=== PATIENT | male | born 1940 | race Caucasian/White ===

== ENCOUNTER 2017-03-07 12:08 | Emergency (ER) | payer OTHER ==
[~2017-03-07] VITALS: Ht 175.3 cm; Wt 57.0 kg
[2017-03-07 12:18] VITALS: TEMP 36.6; O2SAT 99
[2017-03-07] MEDS ORDERED: ADVIN25/60 INH (12:23)
[2017-03-07] MEDS ORDERED: VNTHFA/IN INH (12:23)
[2017-03-07] MEDS ORDERED: SODIUM CHLORIDE 0.9% 500ML 500 ML IV STA (12:27)
[2017-03-07] MEDS ORDERED: ALBUT/IPRATROP 3MG/0.5MG NEB 3 ML VIAL INH ONE (12:30)
[2017-03-07 12:34] VITALS: Ht 175.3 cm; Wt 57.0 kg
[2017-03-07 12:52] LABS: BASO % 1.1 %; BASO ABS # 0.07 K/uL (0-0.2); COMPLETE YES; EOS % 11.9 %; HEMATOCRIT 44.8 % (42-52); IG% 0.3 %; LYMPH % 40.1 %; LYMPH ABS # 2.64 K/uL (1.2-3.4); MEAN CELL VOLUME 100.7 fL (80-100); MEAN CORPUSCULAR HEMOGLOBIN 33.7 pg (25-34); MEAN CORPUSCULAR HGB CONC 33.5 g/dl (32-36); MEAN PLATELET VOLUME 9.7 fL (7.4-10.4); MONO % 10.6 %; PLATELET COUNT 159 K/uL (130-400); RED BLOOD COUNT 4.45 M/uL (4.7-6.1); WHITE BLOOD COUNT 6.58 K/uL (4.8-10.8)
[2017-03-07] MEDS ORDERED: MAGNESIUM SULFATE 1GM / D5W 1 GM BAG IV STA (12:57)
--- NOTE | 2017-03-07 12:57 | EMERGENCY ROOM VISIT NOTE ---
History Report prepared by Scribe: Ginny Ramirez Under the Supervision of: Dr. Lzaaro Beth M.D. First contact with patient: 12:27 Chief Complaint: RESPIRATORY PROBLEMS Stated Complaint: BREATHING DIFFICULTY Nursing Triage Summary: Patient arrives via ALS from home with complaints of respiratory difficulty. Patient reports "I have been sick for over a month now, coughing dark greenish stuff up, they started me on some pill that took it away for a little bit but now it's back." When ems arrived patient was SOB, gasping, only could say 1-2 word sentences. Patient has history of COPD. Per ems report, patient was 90 % on room air, they administered 2 duonebs, 1 additional albuteral treatment, and solu-medrol. Patient reports feeling better and easier to breath at this time. History of Present Illness The patient is a 76 year old male who presents to the Emergency Room with complaints of worsening respiratory problems for the past 1 month. He was brought to the ED via ALS. Per EMS, patient's called an ambulance when he started gasping for air this morning. The patient was 90% on room air when they arrived. They administered 2 DuoNeb treatments, 1 Albuterol treatment and Solu- Medrol, which have provided good relief. The patient reports he has been sick with cold symptoms for the past 1 month. He complains of a productive cough with dark green sputum. He followed with his family doctor at [facility] and was started on antibiotics, which provided good relief while he was taking them, but he states his symptoms returned when he finished the antibiotics. He admits to a history of COPD but has not followed with a [employer] in several years. Source of History: patient Onset: 1 month [employer] Position: chest Timing: worsening Modifying Factors (Relieving): other (antibiotics, albuterol, DuoNeb) Associated Symptoms: + cough Review of Systems See HPI for pertinent positives & negatives. A total of 10 systems reviewed and were otherwise negative. Past Medical & Surgical Medical Problems: (1) COPD (chronic obstructive pulmonary disease) Social History Smoking Status: Former Smoker Alcohol Use: occasionally Drug Use: none Marital Status: Housing Status: lives with family Occupation Status: retired Current/Historical Medications Scheduled Fluticasone Prop/Salmeterol (Advair Diskus 250/50 60 Dose), 1 PUFF INH BID Levofloxacin (Levaquin), 500 MG PO DAILY Prednisone (Prednisone Tab), 0 PO DAILY Scheduled PRN Albuterol Hfa (Ventolin Hfa), 2-4 PUFFS INH Q6H PRN for Shortness of Breath Allergies Coded Allergies: No Known Allergies (Unverified , 03/07/17) Physical Exam Vital Signs Date Time Temp Pulse Resp B/P (MAP) Pulse Ox O2 Delivery O2 Flow Rate FiO2 03/07/17 13:57 110 18 159/70 99 Room Air 03/07/17 13:08 100 18 97 Room Air 03/07/17 12:31 98 03/07/17 12:18 36.6 107 17 190/84 99 Room Air 03/07/17 12:18 99 Room Air 03/07/17 12:18 99 Room Air Physical Exam GENERAL: Patient is a cachectic-appearing 76 year old male HEAD: Normocephalic atraumatic EYES: Ocular movements intact pupils equal and react to light OROPHARYNX mucous membranes are moist no exudates present no erythema or edema present NECK: Supple no nuchal rigidity CHEST: Good equal expansion LUNGS: Bilateral wheezes CARDIAC: Normal S1 and S2 ABDOMEN: Soft nontender no guarding BACK: No CVA tenderness EXTREMITIES: No pain upon palpation normal muscle strength in all groups no clubbing cyanosis or edema NEURO: Patient is following commands is answering questions appropriately. Alert and oriented x3 Cranial Nerves 2-12 grossly intact Medical Decision & Procedures ER Provider Diagnostic Interpretation: Radiology results as stated below per my review and radiologist interpretation: CHEST ONE VIEW PORTABLE HISTORY: 76 years-old Male Pt c/o hypoxia acute infarct see with shortness of breath COMPARISON: None available TECHNIQUE: Portable upright AP view of the chest FINDINGS: Cardiac silhouette is within normal limits. There is atherosclerosis of the aorta. Lungs are hyperinflated and hyperlucent with mild biapical pleural-parenchymal scarring. Linear perihilar and midlung opacities suggest atelectasis/scarring. There are patchy alveolar opacities of the left lung base. The bones appear grossly intact IMPRESSION: 1. Patchy subsegmental left basilar opacities suggest atelectasis or pneumonia. 2. Emphysema with mild perihilar and midlung atelectasis/scarring. The above report was generated using voice recognition software. It may contain grammatical, syntax or spelling errors. Electronically signed by: Bry Forrest M.D. 03/07/2017 12:57 PM Laboratory Results 03/07/17 12:15 Red Blood Count 4.45, Mean Corpuscular Volume 100.7, Mean Corpuscular Hemoglobin 33.7, Mean Corpuscular Hemoglobin Concent 33.5, Mean Platelet Volume 9.7, Neutrophils (%) (Auto) 36.0, Lymphocytes (%) (Auto) 40.1, Monocytes (%) ( Auto) 10.6, Eosinophils (%) (Auto) 11.9, Basophils (%) (Auto) 1.1, Neutrophils # (Auto) 2.37, Lymphocytes # (Auto) 2.64, Monocytes # (Auto) 0.70, Eosinophils # (Auto) 0.78, Basophils # (Auto) 0.07 03/07/17 12:15 Test 03/07/17 12:15 03/07/17 12:37 White Blood Count 6.58 K/uL (4.8-10.8) Red Blood Count 4.45 M/uL (4.7-6.1) Hemoglobin 15.0 g/dL (14.0-18.0) Hematocrit 44.8 % (42-52) Mean Corpuscular Volume 100.7 fL (80-100) Mean Corpuscular Hemoglobin 33.7 pg (25-34) Mean Corpuscular Hemoglobin Concent 33.5 g/dl (32-36) Platelet Count 159 K/uL (130-400) Mean Platelet Volume 9.7 fL (7.4-10.4) Neutrophils (%) (Auto) 36.0 % Lymphocytes (%) (Auto) 40.1 % Monocytes (%) (Auto) 10.6 % Eosinophils (%) (Auto) 11.9 % Basophils (%) (Auto) 1.1 % Neutrophils # (Auto) 2.37 K/uL (1.4-6.5) Lymphocytes # (Auto) 2.64 K/uL (1.2-3.4) Monocytes # (Auto) 0.70 K/uL (0.11-0.59) Eosinophils # (Auto) 0.78 K/uL (0-0.5) Basophils # (Auto) 0.07 K/uL (0-0.2) RDW Standard Deviation 47.9 fL (36.4-46.3) RDW Coefficient of Variation 13.0 % (11.5-14.5) Immature Granulocyte % (Auto) 0.3 % Immature Granulocyte # (Auto) 0.02 K/uL (0.00-0.02) Anion Gap 12.0 mmol/L (3-11) Est Creatinine Clear Calc Drug Dose 67.9 ml/min Estimated GFR () 103.6 Estimated GFR (Non- 89.4 BUN/Creatinine Ratio 6.4 (10-20) Calcium Level 8.5 mg/dl (8.5-10.1) Total Bilirubin 0.7 mg/dl (0.2-1) Aspartate Amino Transf (AST/SGOT) 44 U/L (15-37) Alanine Aminotransferase (ALT/SGPT) 30 U/L (12-78) Alkaline Phosphatase 87 U/L (45-117) Total Creatine Kinase 106 U/L (39-308) Creatine Kinase MB 2.1 ng/ml (0.5-3.6) Creatine Kinase MB Ratio 2.0 (0-3.0) Troponin I 0.018 ng/ml (0-0.045) Total Protein 6.7 gm/dl (6.4-8.2) Albumin 3.4 gm/dl (3.4-5.0) Globulin 3.3 gm/dl (2.5-4.0) Albumin/Globulin Ratio 1.0 (0.9-2) Influenza Type A Antigen Neg for Influ A (NEG) Influenza Type B Antigen Neg for Influ B (NEG) Labs reviewed by ED physician. Medications Administered Medications (Trade) Dose Ordered Sig/Rigoberto Route Start Time Stop Time Status Last Admin Dose Admin Sodium Chloride 500 ml @ 999 mls/hr Q31M STAT IV 03/07/17 12:27 03/07/17 12:57 DC 03/07/17 12:41 999 MLS/HR Albuterol/ Ipratropium (Duoneb) 12 ml ONE ONCE INH 03/07/17 12:30 03/07/17 12:31 DC 03/07/17 12:30 12 ML Magnesium Sulfate (Magnesium Sulfate) 1 gm NOW STAT IV 03/07/17 12:57 03/07/17 12:58 DC 03/07/17 13:01 1 GM Levofloxacin (Levaquin Tab) 500 mg DAILY@11 STAT PO 03/07/17 13:18 03/07/17 13:19 DC 03/07/17 13:57 500 MG ECG Indication: SOB/dyspnea Rate (beats per minute): 96 Rhythm: normal sinus Findings: no acute ischemic change, no ectopy ED Course 1249: Past medical records reviewed. The patient was evaluated in room C10. A complete history and physical examination was performed. 1227: NSS 500 ml @ 999 mls/hr IV. 1230: DuoNeb 12 ml INH. 1257: Magnesium Sulfate 1 gm IV. 1318: Levaquin 500 mg PO. 1345: I reevaluated the patient. He is feeling well and resting comfortably. He states he is ready to go home. I discussed his results and discharge instructions and he verbalized complete understanding and agreement. Medical Decision Prior records/ancillary studies reviewed. Triage Nursing notes reviewed. The patient's history was concerning for respiratory difficulties. Differential diagnosis: Etiologies such as infections, reactive airway disease, pneumonia, pneumothorax , COPD, CHF, cardiac ischemia, pulmonary embolism, musculoskeletal, gastrointestinal, as well as others were entertained. This is a 76-year-old male who presents emergency department complaining of difficulty breathing and wheezing. The patient was given a breathing treatments as well as Solu-Medrol on the way in via EMS and upon arrival to the emergency department the patient is already feeling much better. He is not hypoxic. He was given further breathing treatments in the emergency department along with magnesium. The patient has a normal chest x-ray with no evidence of pneumonia. I will start him on Levaquin. I gave the patient the option of being admitted however he would like to go home. I recommended he take his inhalers twice every 6 hours and needs follow-up with his primary care physician. Patient was in agreement with the treatment plan. Medication Reconcilliation Current Medication List: was personally reviewed by me Blood Pressure Screening Patient's blood pressure: Elevated blood pressure Blood pressure disposition: Referred to PCP Impression Primary Impression: COPD (chronic obstructive pulmonary disease) Scribe Attestation The scribe's documentation has been prepared under my direction and personally reviewed by me in its entirety. I confirm that the note above accurately reflects all work, treatment, procedures, and medical decision making performed by me. Departure Information Dispostion Home / Self-Care Prescriptions Levofloxacin (Levaquin) 500 Mg Tab 500 MG PO DAILY for 7 Days, #7 TAB Prov: Lazaro Beth MD 03/07/17 Prednisone (Prednisone Tab) 20 Mg Tab 0 PO DAILY, #7 TAB 2 TABS DAILY FOR 2 DAYS, THEN 1 TAB DAILY FOR 2 DAYS, THEN 1/2 TAB DAILY FOR 2 DAYS. Prov: Lazaro Beth MD 03/07/17 Referrals No Doctor, Assigned (PCP) Patient Instructions COPD - [facility], COPD Inhalers, [facility] Additional Instructions Use inhaler twice every 4 hours Return if symptoms worsen You were found to have an elevated blood pressure today (>120 sytolic or >90 diastolic). Per medicare guidelines, you need to follow up with this blood pressure screening with your Primary Care Physician (PCP). For a new PCP call [phone]. You have been examined and treated today on an emergency basis only. This is not a substitute for, or an effort to provide, complete comprehensive medical care. It is impossible to recognize and treat all injuries or illnesses in a single emergency department visit. It is therefore important that you follow up closely with your PCP. Call as soon as possible for an appointment. Thank you for your time and consideration. I look forward to speaking with you again soon. Please don't hesitate to call us if you have any questions. Problem Qualifiers Primary Impression: COPD (chronic obstructive pulmonary disease) COPD type: COPD with acute exacerbation Qualified Codes: J44.1 - Chronic obstructive pulmonary disease with (acute) exacerbation
[2017-03-07 13:02] LABS: BUN/CREATININE RATIO 6.4 (10-20); CALCIUM 8.5 mg/dl (8.5-10.1); CREATININE 0.77 mg/dl (0.60-1.40); POTASSIUM 3.6 mmol/L (3.5-5.1)
[2017-03-07 13:08] VITALS: PULSE 100; O2SAT 97
[2017-03-07] MEDS ORDERED: LEVOFLOXACIN 500 MG TAB PO STA (13:18)
[2017-03-07] MEDS ORDERED: PRED20TA2 PO (13:47)
[2017-03-07] MEDS ORDERED: LEVO-366 PO (13:47)
[2017-03-07 13:57] VITALS: BP 159/70; PULSE 110; O2SAT 99
[2017-03-07 14:57] LABS: INFLUENZA A PCR Neg for Influ A (NEG); INFLUENZA B PCR Neg for Influ B (NEG)
== END 2017-03-07 14:20 | disposition home or self-care (01) ==
LOC: EDBD 12:08 → C.EDC 12:11
DX: J44.1 Chronic obstructive pulmonary disease with (acute) exacerbation (principal); Z87.891 Personal history of nicotine dependence

== ENCOUNTER 2017-04-23 11:46 | Inpatient (IN) | payer OTHER ==
[~2017-04-23] VITALS: Ht 175.3 cm; Wt 59.5 kg
[~2017-04-23 11:46] MED LIST: ADVIN25/60 INH; PRED20TA2 PO; VNTHFA/IN INH
[2017-04-23] MEDS ORDERED: ALBU18002 PO (12:16)
[2017-04-23] MEDS ORDERED: LEVAQUIN 750MG / 150ML D5W IV STA (12:36)
[2017-04-23] MEDS ORDERED: ALBUT/IPRATROP 3MG/0.5MG NEB 3 ML VIAL INH STA (12:36)
[2017-04-23] MEDS ORDERED: METHYLPREDNISOLONE 125 MG VIAL IV STA (12:36)
--- NOTE | 2017-04-23 12:38 | EMERGENCY ROOM VISIT NOTE ---
History Report prepared by Fab: Zac Salcido Under the Supervision of: Dr. Eileen Hatch D.O. First contact with patient: 12:27 Chief Complaint: SHORTNESS OF BREATH Stated Complaint: SHORTNESS OF BREATH Nursing Triage Summary: Pt arrived via ambulance ALS from home. Pt has a history of COPD and does not use oxygen at home. Pt states that over the last week he has been experincing increased SOB. Pt states that his SOB increases on exacerbation. Pt has a productive cough and reports that he is bring up green sputum. Pt denies any fever. Pt states that he has been feeling more congested than normal. When EMS arrived the pts pulse ox was 80% room air. Pt was placed on 15lpm non rebreather by BLS. When ALS arrived the pt was placed on nasal canula at 2lpm with a pulse ox in the mid 90's. ALS gave the pt 2 duenebs and 2 albuterol treatments. Pt was also given solumedrol. Pt has wheezes and rhonchi in bilateral upper lobes. Pt states that his chest feels tight at his sternum. History of Present Illness The patient is a 76 year old male with a history of COPD who presents to the Emergency Room via ALS with complaints of worsening shortness of breath that started 2 weeks ago. He says that he has had COPD exacerbations in the past. The patient states that over the past few weeks, the shortness of breath has gradually worsened, and his nebulizer and ProAir treatments have not been working. The patient says that any exertion makes him very short of breath, and he gets a bit of chest pain on exertion as well, but the chest pain goes away after resting. He adds that he has gotten a cough with green phlegm. He states he is an ex-smoker, and stopped smoking a year and 2 months ago. He at one point smoked 4 packs per day. The patient says that he does not use oxygen at home. He denies any fevers, leg swelling, bowel movement changes, or urinary symptoms. He also denies any recent sick contacts or long travels. The patient says that he has a history of pneumonia and bronchitis, and this current bout feels a bit like bronchitis. He notes no history of heart problems. Per EMS, patient 80% on room air on their arrival. Patient's saturations improved upon placement of nasal cannula patient was given a DuoNeb en route to the hospital. Source of History: patient Onset: 2 weeks ago Position: other (global - shortness of breath) Quality: other (hx of COPD) Timing: worsening Modifying Factors (Worsening): exertion Modifying Factors (Relieving): rest Associated Symptoms: + cough (with green phlegm), + chest pain, No fevers, No urinary symptoms Note: Associated symptoms: Denies leg swelling, bowel movement changes. Review of Systems See HPI for pertinent positives & negatives. A total of 10 systems reviewed and were otherwise negative. Past Medical & Surgical Medical Problems: (1) COPD (chronic obstructive pulmonary disease) (2) ETOH abuse Family History Family history omitted secondary to patient's advanced age. Social History Smoking Status: Former Smoker Alcohol Use: occasionally Drug Use: none Marital Status: Housing Status: lives with family Occupation Status: retired Current/Historical Medications Scheduled Fluticasone Prop/Salmeterol (Advair Diskus 250/50 60 Dose), 1 PUFF INH BID Scheduled PRN Albuterol Sulfate (Proair Respiclick), 2 PUFF PO Q4H PRN for SOB/Wheezing Allergies Coded Allergies: No Known Allergies (Unverified , 04/23/17) Physical Exam Vital Signs Date Time Temp Pulse Resp B/P (MAP) Pulse Ox O2 Delivery O2 Flow Rate FiO2 04/23/17 14:05 104 20 140/74 96 Nasal Cannula 2.0 04/23/17 12:23 98 Nasal Cannula 2.0 04/23/17 12:22 98 Nasal Cannula 2.0 04/23/17 12:21 98 Nasal Cannula 2.0 04/23/17 12:15 102 04/23/17 12:00 36.6 108 22 172/96 88 Room Air 04/23/17 12:00 88 Room Air Physical Exam GENERAL: alert, well appearing, well nourished, no distress, non-toxic EYE EXAM: normal conjunctiva, PERRL and EOM's grossly intact OROPHARYNX: no exudate, no erythema, lips, buccal mucosa, and tongue normal and mucous membranes are moist NECK: supple, no nuchal rigidity, no adenopathy, non-tender LUNGS: Diminished breath sounds. Faint expiratory wheezing bilaterally. Normal chest wall mechanics HEART: no murmurs, S1 normal and S2 normal ABDOMEN: abdomen soft, non-tender, normo-active bowel sounds, no masses, no rebound or guarding. BACK: Back is symmetrical on inspection and there is no deformity, no midline tenderness, no CVA tenderness. SKIN: no rashes and no bruising UPPER EXTREMITIES: upper extremities are grossly normal. LOWER EXTREMITIES: No pitting edema. NEURO EXAM: Normal sensorium, cranial nerves II-XII grossly intact, normal speech, no gross weakness of arms, no gross weakness of legs. Medical Decision & Procedures ER Provider Diagnostic Interpretation: X-ray results have been interpreted by the radiologist and reviewed by me. CHEST ONE VIEW PORTABLE CLINICAL HISTORY: SOB dyspnea COMPARISON STUDY: 03/07/2017 FINDINGS: Improved left basilar infiltrative process. Stable bilateral baseline emphysematous change. Scattered interstitial fibrotic change considered chronic. No acute infiltrate current time. IMPRESSION: Chronic and emphysematous change. No acute process. The above report was generated using voice recognition software. It may contain grammatical, syntax or spelling errors. Electronically signed by: Joni Bond M.D. 04/23/2017 1:01 PM Dictated Date/Time: 04/23/2017 1:00 PM Laboratory Results Test 04/23/17 12:10 04/23/17 12:47 04/23/17 12:56 Immature Granulocyte % (Auto) 0.1 % White Blood Count 6.76 K/uL (4.8-10.8) Red Blood Count 4.16 M/uL (4.7-6.1) Hemoglobin 14.8 g/dL (14.0-18.0) Hematocrit 41.8 % (42-52) Mean Corpuscular Volume 100.5 fL (80-100) Mean Corpuscular Hemoglobin 35.6 pg (25-34) Mean Corpuscular Hemoglobin Concent 35.4 g/dl (32-36) Platelet Count 191 K/uL (130-400) Mean Platelet Volume 9.3 fL (7.4-10.4) Neutrophils (%) (Auto) 54.4 % Lymphocytes (%) (Auto) 30.5 % Monocytes (%) (Auto) 7.1 % Eosinophils (%) (Auto) 7.0 % Basophils (%) (Auto) 0.9 % Neutrophils # (Auto) 3.68 K/uL (1.4-6.5) Lymphocytes # (Auto) 2.06 K/uL (1.2-3.4) Monocytes # (Auto) 0.48 K/uL (0.11-0.59) Eosinophils # (Auto) 0.47 K/uL (0-0.5) Basophils # (Auto) 0.06 K/uL (0-0.2) Immature Granulocyte # (Auto) 0.01 K/uL (0.00-0.02) Prothrombin Time 10.9 SECONDS (9.0-12.0) Prothromb Time International Ratio 1.0 (0.9-1.1) Activated Partial Thromboplast Time 28.3 SECONDS (21.0-31.0) Partial Thromboplastin Ratio 1.1 Estimated Average Glucose 97 mg/dl Hemoglobin A1c 5.0 % (4.5-5.6) Total Bilirubin 0.8 mg/dl (0.2-1) Aspartate Amino Transf (AST/SGOT) 29 U/L (15-37) Alanine Aminotransferase (ALT/SGPT) 22 U/L (12-78) Alkaline Phosphatase 95 U/L (45-117) Pro-B-Type Natriuretic Peptide 186 pg/ml (0-900) Total Protein 7.5 gm/dl (6.4-8.2) Albumin 3.5 gm/dl (3.4-5.0) Globulin 4.0 gm/dl (2.5-4.0) Albumin/Globulin Ratio 0.9 (0.9-2) Bedside Troponin I 0.040 ng/ml (0-0.045) Bedside Lactic Acid Venous 3.16 mmol/L (0.90-1.70) Laboratory results per my review. Medications Administered Medications (Trade) Dose Ordered Sig/Rigoberto Route Start Time Stop Time Status Last Admin Dose Admin Albuterol/ Ipratropium (Duoneb) 3 ml NOW STAT INH 04/23/17 12:36 04/23/17 12:38 DC 04/23/17 12:36 3 ML Methylprednisolone Sodium Succinate (Solu-Medrol IV) 125 mg NOW STAT IV 04/23/17 12:36 04/23/17 12:38 DC 04/23/17 12:36 125 MG Levofloxacin (Levaquin / D5W) 750 mg NOW STAT IV 04/23/17 12:36 04/23/17 12:38 DC 04/23/17 12:36 750 MG Aspirin (Ecotrin Tab) 325 mg NOW STAT PO 04/23/17 13:30 04/23/17 13:31 DC 04/23/17 14:25 325 MG ECG Indication: SOB/dyspnea Rate (beats per minute): 95 Rhythm: normal sinus Findings: no acute ischemic change, no ectopy, other (normal axis, normal intervals) ED Course 1229: The patient was evaluated in room C6. A complete history and physical exam was performed. 1236: Ordered Levaquin / D5W 750 mg IV, Solu-Medrol IV 125 mg IV, Duoneb 3 ml INH. 1330: Ordered Ecotrin Tab 325 mg PO. 1338: Upon reevaluation, the patient is still finishing his neb treatment. He has no current chest pain. I discussed the findings and the treatment plan with the patient. He expresses agreement and understanding. He will be evaluated for further management. 1426: I reviewed the patient's case with Lotus Abdalla. She will evaluate the patient for further management. Medical Decision Differential diagnoses includes but is not limited to pneumonia, bronchitis, COPD/Asthma exacerbation, pneumothorax, pulmonary embolism, congestive heart failure, acute coronary syndrome Patient initially hypoxic [facility] improved by arrival here and reported feeling better. Patient likely with COPD exacerbation although found to have elevated troponin also. Concern given patient's risk factors for ACS. Patient with no EKG changes or chest pain while at rest. Patient has reported chest pain and shortness of breath with exertion. Possible elevated troponin secondary to hypoxia noted by EMS, however patient needs additional testing and likely cardiology evaluation at some point. Patient stable hemodynamically here and maintained his oxygen levels well on nasal cannula. Given steroids and additional breathing treatments. Doubt PE, dissection, bacteremia/sepsis, additional GI or pathology. Doubt tamponade, no evidence of effusion. Given change in cough, worsening trouble breathing patient covered with antibiotics, no focal infiltrate seen on chest x-ray. Medication Reconcilliation Current Medication List: was personally reviewed by me Blood Pressure Screening Patient's blood pressure: Elevated blood pressure Referred to hospitalist. Consults Time Called: 1420 Consulting Physician: Lotus Abdalla Returned Call: 1426 I reviewed the patient's case with Lotus Abdalla. She will evaluate the patient for further management. Impression Primary Impression: COPD exacerbation Additional Impressions: Hypoxia Elevated troponin Scribe Attestation The scribe's documentation has been prepared under my direction and personally reviewed by me in its entirety. I confirm that the note above accurately reflects all work, treatment, procedures, and medical decision making performed by me. Departure Information Dispostion Being Evaluated By Hospitalist Referrals No Doctor, Assigned (PCP) Patient Instructions My [facility] Problem Qualifiers
[2017-04-23 12:47] LABS: BASO % 0.9 %; BASO ABS # 0.06 K/uL (0-0.2); COMPLETE YES; HEMATOCRIT 41.8 % (42-52); IG% 0.1 %; LYMPH % 30.5 %; LYMPH ABS # 2.06 K/uL (1.2-3.4); MEAN CELL VOLUME 100.5 fL (80-100); MEAN CORPUSCULAR HEMOGLOBIN 35.6 pg (25-34); MEAN CORPUSCULAR HGB CONC 35.4 g/dl (32-36); MEAN PLATELET VOLUME 9.3 fL (7.4-10.4); MONO % 7.1 %; NEUT % 54.4 %; PLATELET COUNT 191 K/uL (130-400); RED BLOOD COUNT 4.16 M/uL (4.7-6.1); WHITE BLOOD COUNT 6.76 K/uL (4.8-10.8)
[2017-04-23 12:54] LABS: BUN/CREATININE RATIO 7.6 (10-20); CALCIUM 9.2 mg/dl (8.5-10.1); CREATININE 0.97 mg/dl (0.60-1.40); POTASSIUM 3.9 mmol/L (3.5-5.1)
[2017-04-23 12:57] LABS: PARTIAL THROMBOPLASTIN RATIO 1.1; PROTHROMBIN TIME (PATIENT) 10.9 SECONDS (9.0-12.0)
[2017-04-23 13:02] LABS: ALB/GLOB RATIO 0.9 (0.9-2)
--- NOTE | 2017-04-23 13:03 | DIAGNOSTIC IMAGING REPORT ---
CHEST ONE VIEW PORTABLE CLINICAL HISTORY: SOB dyspnea COMPARISON STUDY: 03/07/2017 FINDINGS: Improved left basilar infiltrative process. Stable bilateral baseline emphysematous change. Scattered interstitial fibrotic change considered chronic. No acute infiltrate current time. IMPRESSION: Chronic and emphysematous change. No acute process. The above report was generated using voice recognition software. It may contain grammatical, syntax or spelling errors. Electronically signed by: Joni Bond M.D. 04/23/2017 1:01 PM Dictated Date/Time: 04/23/2017 1:00 PM
[2017-04-23] MEDS ORDERED: ASPIRIN 325 MG ECTAB PO STA (13:30)
[2017-04-23] MEDS ORDERED: NITROGLYCERIN 0.4 MG SL PER TAB CHARGE SL PRN (15:15)
[2017-04-23] MEDS ORDERED: ACETAMINOPHEN 325 MG TAB PO PRN (15:15)
[2017-04-23] MEDS ORDERED: ONDANSETRON INJ 2 MG/ML 2 ML VIAL IV PRN (15:15)
[2017-04-23] MEDS ORDERED: OPTIRAY 320 IV PRN (15:30)
[2017-04-23] MEDS ORDERED: LORAZEPAM 2 MG/ML 1 ML VIAL IV PRN (16:00)
[2017-04-23] MEDS ORDERED: GABAPENTIN 600 MG TAB PO SCH (16:00)
[2017-04-23 16:30] VITALS: BP 136/80; PULSE 101; TEMP 36.6; O2SAT 96; Ht 175.3 cm; Wt 59.5 kg
[2017-04-23] MEDS ORDERED: SODIUM CHLORIDE 0.9% 1000ML 1,000 ML IV SCH ×2 (16:30→19:00)
[2017-04-23] MEDS ORDERED: LEVALBUTEROL 1.25MG/3ML NEB INH PRN (16:45)
--- NOTE | 2017-04-23 16:51 | DIAGNOSTIC IMAGING REPORT ---
CHEST CTA for PULMONARY ARTERIES CT DOSE: 234.69 mGy.cm HISTORY: Hypoxia. TECHNIQUE: Multiaxial CT images of the chest were performed following the intravenous administration of contrast to evaluate the pulmonary arteries. Maximal intensity projection images were also obtained. A dose lowering technique was utilized adhering to the principles of ALARA. COMPARISON STUDY: Chest 04/23/2017. FINDINGS: Normal caliber thoracic aorta with no evidence for dissection. The heart is normal in size. No pleural or pericardial effusions. The majority of the bilateral lower lobe, lingular, and right middle lobe pulmonary arteries are nondiagnostic due to the motion artifact. Otherwise, the remaining pulmonary arteries show no filling defects to suggest pulmonary embolus. No mediastinal or hilar lymphadenopathy. The visualized liver and adrenal glands unremarkable. Punctate calcification within the spleen. No pneumothorax. The central airways are patent. Bilateral lower lobe bronchial wall thickening. Focal patchy air consolidation within the base of the left lower lobe. This measures approximately 3.8 cm and has a non masslike appearance. Severe emphysema. Suboptimal evaluation the lungs due to the respiratory motion. The right lung is essentially clear. IMPRESSION: 1. No evidence for pulmonary embolus with limitations as described above. 2. Small focal consolidation within the left lower lobe. This likely represents a pneumonia. Recommend 2-[address] follow-up to ensure resolution. 3. Severe emphysema. Electronically signed by: Madan Henderson M.D. 04/23/2017 4:49 PM Dictated Date/Time: 04/23/2017 4:37 PM
[2017-04-23] MEDS ORDERED: GABAPENTIN 1200MG LOADING DOSE PO ONE (17:00)
[2017-04-23] MEDS: MULTIVITAMIN TAB PO SCH (17:41)
[2017-04-23] MEDS: THIAMINE HCL 100 MG TAB PO SCH (17:41)
[2017-04-23] MEDS: CEFTRIAXONE SOD INJ 1 GM in DEXTROSE 5% ADD-VANTAGE 50ML 50 ML IV SCH (17:42)
[2017-04-23] MEDS ORDERED: PNEUMOCOCCAL POLYSACCHARIDES 25 MCG/0.5 ML VIAL/SYR IM. ONE (18:00)
[2017-04-23] MEDS ORDERED: PNEUMOCOCCAL ADMINISTRATION CHARGE ONE (18:00)
[2017-04-23 18:52] LABS: INFLUENZA A PCR Neg for Influ A (NEG); INFLUENZA B PCR Neg for Influ B (NEG)
[2017-04-23 19:07] VITALS: PULSE 104; O2SAT 96
[2017-04-23] MEDS: IPRATROPIUM BROMIDE NEB SOLN 0.02% 2.5 ML VIAL INH SCH (19:07)
[2017-04-23] MEDS: LEVALBUTEROL 1.25MG/0.5ML NEB INH SCH (19:07)
[2017-04-23 19:38] VITALS: BP 141/85; PULSE 106; TEMP 36.6; O2SAT 95
--- NOTE | 2017-04-23 19:44 | History and Physical ---
History & Physical Date & Time of Service: Apr 23, 2017 ~ 15:00 Chief Complaint: Shortness Of Breath Primary Care Physician: Rm Lundberg History of Present Illness 76 year old male who presents to the ED with shortness of breath. Patient's pulmonary problems date back to this spring. 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 He presented to his PCPs office this spring for complaints of shortness of breath. He underwent PFTs that showed severe COPD. Patient declined pulmonary evaluation. Since then he has been on several courses of antibiotics and steroids for COPD exacerbation and bronchitis. Most recently patient was seen in the ED on 03/07 and was given Levaquin and Prednisone. He completed both courses. He reports he initially felt better but his symptoms returned about one week ago. He reports progressive increasing shortness of breath. He has shortness of breath with minimal exertion. He has a cough productive for green sputum. He denies fever and chills. He reports his chest felt tight and that he couldn't get a deep breath in. He denies chest pressure and palpitations. He reports lightheadedness and dizziness but denies any syncopal events. He reports a good appetite. No abdominal pain, nausea, vomiting, or diarrhea. Denies weight loss. No urinary symptoms. When EMS arrived, patient was saturating in the low 80s. He was placed on NRB mask and given nebs and solumedrol. In the ED, patient was 88% on room air which improved with oxygen 2L via NC. He was given solumedrol, neb, Levaquin, and full dose ASA. Troponin is mildly elevated at 0.068, EKG does not show any acute ST changes. Past Medical/Surgical History Medical Problems: (1) COPD (chronic obstructive pulmonary disease) Status: Chronic (2) ETOH abuse Status: Chronic Family History negative for premature CAD, DM, or CVA Social History Smoking Status: Former Smoker Alcohol Use: 3-4 rum/cokes and 6 pack beer / day Marital Status: Immunizations History of Influenza Vaccine: Yes Influenza Vaccine Date: Mar 12, 2017 Multi-Drug Resistant Organisms History of MDRO: No Allergies Coded Allergies: No Known Allergies (Unverified , 04/23/17) Home Medications Scheduled Fluticasone Prop/Salmeterol (Advair Diskus 250/50 60 Dose), 1 PUFF INH BID Scheduled PRN Albuterol Sulfate (Proair Respiclick), 2 PUFF PO Q4H PRN for SOB/Wheezing Review of Systems ROS per HPI, all other systems reviewed and negative Physical Exam Vital Signs Date Time Temp Pulse Resp B/P (MAP) Pulse Ox O2 Delivery O2 Flow Rate FiO2 04/23/17 15:38 105 20 141/81 97 Nasal Cannula 2.0 04/23/17 14:05 104 20 140/74 96 Nasal Cannula 2.0 04/23/17 12:23 98 Nasal Cannula 2.0 04/23/17 12:22 98 Nasal Cannula 2.0 04/23/17 12:21 98 Nasal Cannula 2.0 04/23/17 12:15 102 04/23/17 12:00 36.6 108 22 172/96 88 Room Air 04/23/17 12:00 88 Room Air General Appearance: WD/WN, no apparent distress, + pertinent finding ( chronically ill appearing) Head: normocephalic, atraumatic Eyes: normal inspection, EOMI, sclerae normal ENT: hearing grossly normal, + pertinent finding (mucous membranes moist) Neck: supple, no JVD, trachea midline Respiratory/Chest: no respiratory distress, + decreased breath sounds, + pertinent finding (saturating well on 2L, short of breath with minimal exertion , able to speak in full sentences) Cardiovascular: regular rate, rhythm, no edema, normal peripheral pulses Abdomen/GI: normal bowel sounds, non tender, soft, no organomegaly Extremities/Musculoskelatal: normal inspection, no calf tenderness, normal capillary refill Neurologic/Psych: no motor/sensory deficits, alert, normal mood/affect, oriented x 3 Skin: normal color, warm/dry Diagnostics Laboratory Results Results Past 24 Hours Test 04/23/17 12:10 04/23/17 12:47 04/23/17 16:00 Range/Units White Blood Count 6.76 4.8-10.8 K/uL Red Blood Count 4.16 4.7-6.1 M/uL Hemoglobin 14.8 14.0-18.0 g/dL Hematocrit 41.8 42-52 % Mean Corpuscular Volume 100.5 80-100 fL Mean Corpuscular Hemoglobin 35.6 25-34 pg Mean Corpuscular Hemoglobin Concent 35.4 32-36 g/dl Platelet Count 191 130-400 K/uL Mean Platelet Volume 9.3 7.4-10.4 fL Neutrophils (%) (Auto) 54.4 % Lymphocytes (%) (Auto) 30.5 % Monocytes (%) (Auto) 7.1 % Eosinophils (%) (Auto) 7.0 % Basophils (%) (Auto) 0.9 % Neutrophils # (Auto) 3.68 1.4-6.5 K/uL Lymphocytes # (Auto) 2.06 1.2-3.4 K/uL Monocytes # (Auto) 0.48 0.11-0.59 K/uL Eosinophils # (Auto) 0.47 0-0.5 K/uL Basophils # (Auto) 0.06 0-0.2 K/uL RDW Standard Deviation 50.0 36.4-46.3 fL RDW Coefficient of Variation 13.6 11.5-14.5 % Immature Granulocyte % (Auto) 0.1 % Immature Granulocyte # (Auto) 0.01 0.00-0.02 K/uL Prothrombin Time 10.9 9.0-12.0 SECONDS Prothromb Time International Ratio 1.0 0.9-1.1 Activated Partial Thromboplast Time 28.3 21.0-31.0 SECONDS Partial Thromboplastin Ratio 1.1 Sodium Level 134 136-145 mmol/L Potassium Level 3.9 3.5-5.1 mmol/L Chloride Level 98 98-107 mmol/L Carbon Dioxide Level 26 21-32 mmol/L Anion Gap 10.0 3-11 mmol/L Blood Urea Nitrogen 7 7-18 mg/dl Creatinine 0.97 0.60-1.40 mg/dl Est Creatinine Clear Calc Drug Dose 47.5 ml/min Estimated GFR () 88.8 Estimated GFR (Non- 76.6 BUN/Creatinine Ratio 7.6 10-20 Random Glucose 122 70-99 mg/dl Calcium Level 9.2 8.5-10.1 mg/dl Total Bilirubin 0.8 0.2-1 mg/dl Aspartate Amino Transf (AST/SGOT) 29 15-37 U/L Alanine Aminotransferase (ALT/SGPT) 22 12-78 U/L Alkaline Phosphatase 95 45-117 U/L Troponin I 0.068 0-0.045 ng/ml Pro-B-Type Natriuretic Peptide 186 0-900 pg/ml Total Protein 7.5 6.4-8.2 gm/dl Albumin 3.5 3.4-5.0 gm/dl Globulin 4.0 2.5-4.0 gm/dl Albumin/Globulin Ratio 0.9 0.9-2 Bedside Troponin I 0.040 0-0.045 ng/ml Diagnostic Radiology CXR IMPRESSION: Chronic and emphysematous change. No acute process. Impression Assessment and Plan ACUTE HYPOXIC RESPIRATORY FAILURE COPD EXACERBATION - admit to tele - patient presenting with increasing shortness of breath and productive cough; for EMS, patient was saturating in the low 80s which improved with neb, steroids , and oxygen via NRB. In the ED, patient was 88% on room air and is currently requiring 2L oxygen via NC. - has been having shortness of breath / COPD exacerbations for the past several months; has been on several course of antibiotics and steroids; had outpatient PFTs that showed severe COPD, patient declined pulmonary evaluation - former smoker quitting 1 year ago; was smoking up to 4 PPD - CXR without infiltrate - will check CT chest - s/p solumedrol 125mg IV in the ED; will continue with Prednisone 40mg PO x 5 days - s/p Levaquin in the ED; since patient was recently on Levaquin, will start Rocephin and Zithromax tomorrow - around the clock nebs - continue inhaled corticosteroid - consult pulmonary, input appreciated ELEVATED TROPONIN - likely demand ischemia from hypoxia, no reports of chest pain - continue to cycle cardiac enzymes - check resting echo LACTIC ACIDEMIA - no signs of sepsis - possibly due to hypoxia and/or ETOH abuse - IVF, follow up lactic acid ETOH ABUSE - patient drinks 2-3 mixed drinks and 6 beers / day - will start ETOH withdrawal protocol with gabapentin, PRN Ativan - start multivitamin, folic acid, and thiamine DVT PROPHYLAXIS - SQ Lovenox CODE STATUS - Patient is a full code as per my discussion with him. DISPO - In my clinical judgment this beneficiary meets acute admission criteria, established by [facility], that includes being hospitalized through two midnights. - PT, OT - expect d/c home once medically stable I have seen and examined with patient with SCIENTIST ENGINEER Lotus Chapman and agree with the assessment and plan as above. This is 76 year old M with COPD exacerbation and hypoxia. Patient on nebulizer treatments and steroids and antibiotics. Antibiotics may be de-escalated if no further signs of pneumonia. Patient has elevated troponin 0.078 and lactic acid which may be from increased work of breathing. Continue to trend these labs. Patient's lactic acid levels coming down from 6.4 to 4.2 after IV fluids. Patient also on alcohol withdrawal protocol due to alcohol history. VTE Prophylaxis VTE Risk Assessment Done? Y/N: Yes Risk Level: Moderate
[2017-04-23] MEDS ORDERED: LEVALBUTEROL 1.25MG/3ML NEB INH SCH (21:00)
[2017-04-23] MEDS ORDERED: ENOXAPARIN 40 MG/0.4 ML SYR SC SCH (21:00)
[2017-04-23] MEDS: FLUTICASONE/SALMETEROL 250/50 (ADVAIR) 14 PUFF/1 INHALER INH SCH (21:45)
[2017-04-23] MEDS ORDERED: SODIUM CHLORIDE 0.9% 500ML 500 ML IV STA (23:05)
[2017-04-23] MEDS: GABAPENTIN 600MG Q6H DOSE PO SCH (23:27)
[2017-04-23 23:48] VITALS: BP 137/73; PULSE 86; TEMP 36.6; O2SAT 96
[2017-04-24] VITALS (10 sets, daily range): BP systolic 122–141; BP diastolic 64–80; PULSE 77–115; TEMP 36.4–36.8; O2SAT 82–97
[2017-04-24] MEDS: IPRATROPIUM BROMIDE NEB SOLN 0.02% 2.5 ML VIAL INH SCH ×4 (02:01→19:35)
[2017-04-24] MEDS: LEVALBUTEROL 1.25MG/0.5ML NEB INH SCH ×4 (02:01→19:35)
[2017-04-24] MEDS: GABAPENTIN 600MG Q6H DOSE PO SCH (05:51)
[2017-04-24 06:07] LABS: HEMATOCRIT 34.9 % (42-52); MEAN CELL VOLUME 100.3 fL (80-100); MEAN CORPUSCULAR HEMOGLOBIN 34.8 pg (25-34); MEAN CORPUSCULAR HGB CONC 34.7 g/dl (32-36); MEAN PLATELET VOLUME 9.3 fL (7.4-10.4); PLATELET COUNT 163 K/uL (130-400); RED BLOOD COUNT 3.48 M/uL (4.7-6.1); WHITE BLOOD COUNT 7.13 K/uL (4.8-10.8)
[2017-04-24 06:42] LABS: BUN/CREATININE RATIO 9.9 (10-20); CALCIUM 8.4 mg/dl (8.5-10.1); CREATININE 0.84 mg/dl (0.60-1.40); POTASSIUM 3.7 mmol/L (3.5-5.1)
[2017-04-24 06:55] LABS: ESTIMATED AVERAGE GLUCOSE 97 mg/dl; HA1C FLAG Normal (Normal)
[2017-04-24] MEDS ORDERED: AZITHROMYCIN 250 MG TAB PO SCH (09:00)
[2017-04-24] MEDS: FLUTICASONE/SALMETEROL 250/50 (ADVAIR) 14 PUFF/1 INHALER INH SCH ×2 (09:56→21:07)
[2017-04-24] MEDS: THIAMINE HCL 100 MG TAB PO SCH (09:57)
[2017-04-24] MEDS: MULTIVITAMIN TAB PO SCH (09:57)
[2017-04-24] MEDS: ASPIRIN 81 MG ECTAB PO SCH (10:12)
--- NOTE | 2017-04-24 10:55 | Pulmonary Consultation ---
History General Date of Service: Apr 24, 2017. Stated Complaint: Copd Exacerbation/bronchitis exacerbation HPI The patient is a 76 year old male who presents to [facility] with complaints of Copd Exacerbation. The patient's primary care provider is No Doctor, Assigned. Pleasant 76-year-old gentleman with a past medical history significant for severe COPD (per the records), alcoholism and recurrent pneumonias over the last 3-6 months. The patient has had multiple rounds of steroids and antibiotics over the last 3-6 months after being diagnosed last spring with severe COPD. He does note he has had progressive dyspnea on exertion over the last 7-10 years but was not formally diagnosed until last spring when he visited his primary care physician and pulmonary function tests were obtained. The patient was initiated on inhaler therapy at that time and was stable until recently when he has had recurrent bouts of shortness of breath and associated productive sputum. He was last seen in the [facility] ED on 03/07/2017 and that time was diagnosed with COPD flare was treated with duo nebs, magnesium, levofloxacin 500 mg, Solu-Medrol and discharged on levofloxacin and prednisone taper. He did well for the following 10-14 days but once again over the last 7- 10 days has experienced increasing productive sputum as well as dyspnea. He was initially brought to the [facility] ED by EMS noted his SCO twos to be in the low 80s. At that time EMS initiate the patient on the nonrebreather mask, nebulizers, Solu-Medrol Levaquin and aspirin. He responded well by the time he arrived in the emergency room department was notably more relieved and his saturations were up to 98% on 2 L respiratory rate sitting at 20-22. In the emergency room the patient received Solu-Medrol 125 mg, Levaquin mg 750 as well as blood workup, chest x-ray and CT angiogram. Please review those results below. WBC: 7K (Eos #: 0.48=) PLT: 163K Lactic Acid: 6.4--4.71.3 Troponin I: 0.0540.0780.68--0.018 Influ A & B: negative Chest x-ray: Compared to 03/07/2017: Improvement in left lower lobe infiltrate CT angiogram: No pulmonary embolism, cross-section 3.8 cm infiltrative process left lower lobe lateral subsegment, panlobular emphysema Treatment Azithromycin 250mg PO Prednisone 40mg QD Atrovent/Xopenex nebs Q6 Ceftriaxone 1gm QD Xopnenex Q2 prn PmHx: 1. COPD 2. 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 Review of Systems Constitutional: reports: weakness Eyes: reports: no symptoms ENT: reports: nasal congestion, rhinorrhea Cardiovascular: reports: no symptoms Respiratory: reports: as stated in HPI Gastrointestinal: reports: no symptoms Genitourinary - Male: reports: no symptoms Musculoskeletal: reports: other (mild right anterior thoracic discomfort along the anterior axillary line only noted during movement or palpation) Integumentary: reports: no symptoms Neurologic: reports: no symptoms Endocrine: no symptoms Hematologic / Lymphatic: no symptoms Allergic / Immunologic: no symptoms Past Medical History Past Medical History: Please refer to history of present illness Past Surgical History: Please refer to history of present illness Family History Please refer to history of present illness Social History Please refer to history of present illness Hx Tobacco Use In Past Year?: No Smoking Status: Former Smoker Marital status: Immunizations History of Influenza Vaccine: Yes Influenza Vaccine Date: Mar 12, 2017 History of MDRO History of MDRO: No Allergies Coded Allergies: No Known Allergies (Unverified , 04/23/17) Current Medications Reported Home Medications Medications Dose Route/Sig Max Daily Dose Days Date Category Proair Respiclick (Albuterol Sulfate) 108 Mcg/Act Aer 2 Puff PO Q4H PRN 04/23/17 Reported Advair Diskus 250/50 60 Dose (Fluticasone Prop/Salmeterol) 1 Ea Aerp 1 Puff INH BID 03/07/17 Reported Physical Physical Exam Vital Signs: Date Time Temp Pulse Resp B/P (MAP) Pulse Ox O2 Delivery O2 Flow Rate FiO2 04/24/17 08:11 36.7 115 20 122/64 (83) 94 Nasal Cannula 2.0 04/24/17 07:36 77 16 96 Nasal Cannula 2.0 04/24/17 04:00 Nasal Cannula 2.0 04/24/17 03:30 36.7 84 18 124/76 (92) 97 Nasal Cannula 2.0 04/24/17 02:03 90 16 95 Nasal Cannula 2.0 04/24/17 00:00 Nasal Cannula 2.0 04/23/17 23:48 36.6 86 20 137/73 (94) 96 Room Air 04/23/17 20:00 Nasal Cannula 2.0 04/23/17 19:38 36.6 106 20 141/85 (103) 95 Nasal Cannula 2.0 04/23/17 19:07 104 16 96 Nasal Cannula 2.0 04/23/17 16:30 36.6 101 20 136/80 96 Nasal Cannula 2.0 04/23/17 15:38 105 20 141/81 97 Nasal Cannula 2.0 04/23/17 14:05 104 20 140/74 96 Nasal Cannula 2.0 04/23/17 12:23 98 Nasal Cannula 2.0 04/23/17 12:22 98 Nasal Cannula 2.0 04/23/17 12:21 98 Nasal Cannula 2.0 04/23/17 12:15 102 04/23/17 12:00 36.6 108 22 172/96 88 Room Air 04/23/17 12:00 88 Room Air General Appearance: NO APPARENT DISTRESS, thin Head: NORMOCEPHALIC, ATRAUMATIC Eyes: PERRLA, NO DISCHARGE, EOMI, SCLERAE NORMAL, CONJUNCTIVAE NORMAL ENT: other (posterior oropharyngeal cobblestoning with notable mucous plugs draining from the nasopharynx) Neck: NORMAL RANGE OF MOTION, NO TENDERNESS, TRACHEA MIDLINE, NO STRIDOR Respiratory: other (decreased breath sounds bilaterally with mild expiratory wheezing) Cardiovasular: REGULAR RATE/RHYTHM, NORMAL S1S2, NO M/G/R, NO MURMUR, NO GALLOP , NO RUB, NO JVD Abdomen: NON TENDER, NORMAL BOWEL SOUNDS, NO REBOUND, NO MASSES, NO GUARDING, NO ORGANOMEGALY, NORMAL RECTAL EXAM, NO HEMORRHOIDS Genitourinary - Male: EXTERNAL GENITALIA NORMAL Back: NORMAL INSPECTION, NO MIDLINE TENDERNESS, NO CVA TENDERNESS, NO PARAVERTEBRAL TTP Upper Extremities: NO EDEMA, NO DEFORMITY, NORMAL ROM Lower Extremities: NO EDEMA, NO DEFORMITY, NORMAL ROM Pulses: carotid (R) (2+), carotid (L) (2+), posterior tibial (R) (2+), posterior tibial (L) (2+) Neuro: ALERT, ORIENTED x 3, NORMAL MOTOR EXAM, NORMAL SENSATION, NORMAL CEREBELLAR EXAM, NORMAL SPEECH Reflexes: biceps (R) (2+), bicpes (L) (2+), achilles (R) (2+), achilles (L) (2+ ) Babinski Testing: right (downgoing), left (downgoing) Psychiatric: NORMAL AFFECT, NO SUICIDAL IDEATION, CONTRACTS FOR SAFETY Diagnostics Labs Results Past 24 Hours Test 04/23/17 12:10 04/23/17 12:47 04/23/17 12:56 04/23/17 17:37 Range/Units White Blood Count 6.76 4.8-10.8 K/uL Red Blood Count 4.16 4.7-6.1 M/uL Hemoglobin 14.8 14.0-18.0 g/dL Hematocrit 41.8 42-52 % Mean Corpuscular Volume 100.5 80-100 fL Mean Corpuscular Hemoglobin 35.6 25-34 pg Mean Corpuscular Hemoglobin Concent 35.4 32-36 g/dl Platelet Count 191 130-400 K/uL Mean Platelet Volume 9.3 7.4-10.4 fL Neutrophils (%) (Auto) 54.4 % Lymphocytes (%) (Auto) 30.5 % Monocytes (%) (Auto) 7.1 % Eosinophils (%) (Auto) 7.0 % Basophils (%) (Auto) 0.9 % Neutrophils # (Auto) 3.68 1.4-6.5 K/uL Lymphocytes # (Auto) 2.06 1.2-3.4 K/uL Monocytes # (Auto) 0.48 0.11-0.59 K/uL Eosinophils # (Auto) 0.47 0-0.5 K/uL Basophils # (Auto) 0.06 0-0.2 K/uL RDW Standard Deviation 50.0 36.4-46.3 fL RDW Coefficient of Variation 13.6 11.5-14.5 % Immature Granulocyte % (Auto) 0.1 % Immature Granulocyte # (Auto) 0.01 0.00-0.02 K/uL Prothrombin Time 10.9 9.0-12.0 SECONDS Prothromb Time International Ratio 1.0 0.9-1.1 Activated Partial Thromboplast Time 28.3 21.0-31.0 SECONDS Partial Thromboplastin Ratio 1.1 Sodium Level 134 136-145 mmol/L Potassium Level 3.9 3.5-5.1 mmol/L Chloride Level 98 98-107 mmol/L Carbon Dioxide Level 26 21-32 mmol/L Anion Gap 10.0 3-11 mmol/L Blood Urea Nitrogen 7 7-18 mg/dl Creatinine 0.97 0.60-1.40 mg/dl Est Creatinine Clear Calc Drug Dose 47.5 ml/min Estimated GFR () 88.8 Estimated GFR (Non- 76.6 BUN/Creatinine Ratio 7.6 10-20 Random Glucose 122 70-99 mg/dl Estimated Average Glucose 97 mg/dl Hemoglobin A1c 5.0 4.5-5.6 % Calcium Level 9.2 8.5-10.1 mg/dl Total Bilirubin 0.8 0.2-1 mg/dl Aspartate Amino Transf (AST/SGOT) 29 15-37 U/L Alanine Aminotransferase (ALT/SGPT) 22 12-78 U/L Alkaline Phosphatase 95 45-117 U/L Troponin I 0.068 0-0.045 ng/ml Pro-B-Type Natriuretic Peptide 186 0-900 pg/ml Total Protein 7.5 6.4-8.2 gm/dl Albumin 3.5 3.4-5.0 gm/dl Globulin 4.0 2.5-4.0 gm/dl Albumin/Globulin Ratio 0.9 0.9-2 Bedside Troponin I 0.040 0-0.045 ng/ml Bedside Lactic Acid Venous 3.16 0.90-1.70 mmol/L Influenza Type A (RT-PCR) Neg for Influ A NEG Influenza Type B (RT-PCR) Neg for Influ B NEG Test 04/23/17 17:58 04/23/17 18:03 04/23/17 22:21 04/24/17 00:00 Range/Units Creatine Kinase MB 2.2 0.5-3.6 ng/ml Creatine Kinase MB Ratio 0-3.0 Troponin I 0.078 0-0.045 ng/ml Vitamin B12 Level 414 211-911 pg/mL Folate 10.62 >5.38 ng/mL Lactic Acid Level 6.4 4.7 0.4-2.0 mmol/L Test 04/24/17 00:22 04/24/17 05:58 Range/Units Creatine Kinase MB 2.5 0.5-3.6 ng/ml Troponin I 0.054 0-0.045 ng/ml White Blood Count 7.13 4.8-10.8 K/uL Red Blood Count 3.48 4.7-6.1 M/uL Hemoglobin 12.1 14.0-18.0 g/dL Hematocrit 34.9 42-52 % Mean Corpuscular Volume 100.3 80-100 fL Mean Corpuscular Hemoglobin 34.8 25-34 pg Mean Corpuscular Hemoglobin Concent 34.7 32-36 g/dl RDW Standard Deviation 50.4 36.4-46.3 fL RDW Coefficient of Variation 13.8 11.5-14.5 % Platelet Count 163 130-400 K/uL Mean Platelet Volume 9.3 7.4-10.4 fL Sodium Level 138 136-145 mmol/L Potassium Level 3.7 3.5-5.1 mmol/L Chloride Level 106 98-107 mmol/L Carbon Dioxide Level 25 21-32 mmol/L Anion Gap 8.0 3-11 mmol/L Blood Urea Nitrogen 8 7-18 mg/dl Creatinine 0.84 0.60-1.40 mg/dl Est Creatinine Clear Calc Drug Dose 52.6 ml/min Estimated GFR () 100.0 Estimated GFR (Non- 86.3 BUN/Creatinine Ratio 9.9 10-20 Random Glucose 169 70-99 mg/dl Lactic Acid Level 1.3 0.4-2.0 mmol/L Calcium Level 8.4 8.5-10.1 mg/dl Triglycerides Level 50 0-150 mg/dl Cholesterol Level 102 0-200 mg/dl HDL Cholesterol 52 mg/dl LDL Cholesterol, Calculated 40 mg/dl VLDL Cholesterol, Calculated 10 mg/dl Cholesterol/HDL Ratio 2.0 Diagnostic Radiology Please refer to history of present illness EKG Nonspecific ST changes but no changes compared to previous EKG Impression Assessment and Plan 76-year-old gentleman admitted for acute on chronic bronchiectasis and COPD flare: #1 COPD: Patient is currently treated with Advair 250/50 but isn't properly using it only one puff daily. As patient is not properly using his Advair I reinforced using the medication to prosper day and we have spoken about the use of rescue medications such as Proventil as well as his nebulizers. As the patient has not had proper inhaler technique suggest we hold off on initiating Daliresp at this time. If our patient continues to have productive sputum with recurrent exacerbations Daliresp would be warranted but he is notably thin and Daliresp can cause weight loss as well as other GI issues. #2 Pulmonary Infiltrate: Patient has had some mild resolution of his left lower lobe infiltrate noted on previous chest x-ray 03/07/2017 continues at this time. I agree with the radiologist as this will have to be followed up by suggest sometime in the next 6 weeks. The patient should've had almost complete resolution within the six-week window between his most recent chest x-rays. This will have to be monitored closely at this time. #3 ID: Patient does have signs and symptoms consistent with acute on chronic bronchiectasis. This possible we are under treating atypical infections as he only received Levaquin 500 mg in the past as well as currently on azithromycin 250. The cover more atypical organisms I will move him up to 500 mg daily of azithromycin for 5 day window. It is reasonable continue ceftriaxone at this time. We'll send off serum studies for Mycoplasma, Legionella as well as pertussis at this time. Sendoff first sputum sample/analysis. #4 Bronchiectasis: Patient does have difficulty clearing secretions at this time I will initiate him on dornase for the next 48 hours. #5 lactic acidosis: The patient has a long history of smoking as well as mild malnutrition and possibly even thiamine deficiency which are noted to increase lactic acid. #6 Discharge: The patient is stable currently doing well on prednisone 40 mg. Would monitor for 24 hour window and I believe he can most likely be discharged on prednisone taper. I do believe this patient needs to follow up with myself in the pulmonary clinic for education on his COPD as well as continued monitoring of that left lower lobe infiltrate. At this time will sign off please call if necessary.
--- NOTE | 2017-04-24 11:20 | ECHOCARDIOGRAM REPORT ---
*NOTICE TO RECEIVING LIBERTARIAN AGENCY This information is strictly Confidential and protected under [place] law. [place] law prohibits you from making any further disclosure of this information unless further disclosure is expressly permitted by the written consent of the person to whom it pertains or is authorized by law. A general authorization for the release of medical or other information is not sufficient for this purpose. Hospital accepts no responsibility if the information is made available to any other person, INCLUDING THE PATIENT. Interpretation Summary * Name: JORDAN BRADFORD JR Study Date: 04/24/2017 07:51 AM BP: 124/76 mmHg * Patient Location: C.2E\S\E204\S\1 HR: 84 * : 1940 (M/d/yyyy) Gender: Male Height: 69 in * Age: 76 yrs Ethnicity: CA Weight: 110 lb * Ordering Physician: Lotus Chapman * Referring Physician: Self, Referred * Performed By: Sophia Agustin RDCS * * Reason For Study: Elevated Troponin * BSA: 1.6 m2 * -- Conclusions -- * The left ventricle is normal in size. * The left ventricular wall motion is normal. * Ejection Fraction = 55-60%. * The right ventricular systolic function is normal. * No significant valvular pathology Procedure Details * A complete two-dimensional transthoracic echocardiogram was performed (2D, M-mode, Doppler and color flow Doppler). Left Ventricle * The left ventricle is normal in size. * There is normal left ventricular wall thickness. * Ejection Fraction = 55-60%. * The left ventricular wall motion is normal. Right Ventricle * The right ventricle is normal size. * The right ventricular systolic function is normal. Atria * The left atrial size is normal. * Right atrial size is normal. * There is no evidence of atrial septal defect, but resolution does not allow assessment for a patent foramen ovale. Mitral Valve * The mitral valve is normal in structure and function. Tricuspid Valve * The tricuspid valve is normal in structure and function. Aortic Valve * The aortic valve is normal in structure and function. Pulmonic Valve * The pulmonic valve is not well visualized. * There is no significant pulmonary regurgitation. Great Vessels * The aortic root and proximal ascending aorta are normal sized. Pericardium/Pleural * There is no pericardial effusion. MMode 2D Measurements and Calculations IVSd 0.87 cm IVSs 1.1 cm LVIDd 4.0 cm LVIDs 2.9 cm LVPWd 0.92 cm LVPWs 1.4 cm IVS/LVPW 0.95 FS 29.1 % EDV(Teich) 70.8 ml ESV(Teich) 30.9 ml EF(Teich) 56.4 % EDV(cubed) 64.9 ml ESV(cubed) 23.2 ml EF(cubed) 64.3 % % IVS thick 26.1 % % LVPW thick 51.5 % LV mass(C)d 109.5 grams LV mass(C)dI 68.3 grams/m\S\2 LV mass(C)s 107.8 grams LV mass(C)sI 67.3 grams/m\S\2 SV(Teich) 39.9 ml SI(Teich) 24.9 ml/m\S\2 SV(cubed) 41.8 ml SI(cubed) 26.1 ml/m\S\2 Ao root diam 2.8 cm Ao root area 6.1 cm\S\2 ACS 1.5 cm LA dimension 3.2 cm LA/Ao 1.2 LVAd ap4 20.7 cm\S\2 LVLd ap4 7.0 cm EDV(MOD-sp4) 51.8 ml EDV(sp4-el) 52.1 ml LVAs ap4 9.7 cm\S\2 LVLs ap4 4.9 cm ESV(MOD-sp4) 18.1 ml ESV(sp4-el) 16.3 ml EF(MOD-sp4) 65.1 % EF(sp4-el) 68.7 % LVAd ap2 21.6 cm\S\2 LVLd ap2 7.5 cm EDV(MOD-sp2) 56.5 ml EDV(sp2-el) 53.1 ml LVAs ap2 11.7 cm\S\2 LVLs ap2 6.0 cm ESV(MOD-sp2) 21.8 ml ESV(sp2-el) 19.4 ml EF(MOD-sp2) 61.5 % EF(sp2-el) 63.4 % LVLd %diff 6.2 % EDV(MOD-bp) 54.9 ml LVLs %diff 17.8 % ESV(MOD-bp) 22.0 ml EF(MOD-bp) 60.0 % SV(MOD-sp4) 33.7 ml SI(MOD-sp4) 21.1 ml/m\S\2 SV(MOD-sp2) 34.8 ml SI(MOD-sp2) 21.7 ml/m\S\2 SV(MOD-bp) 32.9 ml SI(MOD-bp) 20.6 ml/m\S\2 SV(sp4-el) 35.8 ml SI(sp4-el) 22.3 ml/m\S\2 SV(sp2-el) 33.6 ml SI(sp2-el) 21.0 ml/m\S\2 Doppler Measurements and Calculations MV E max ana m 80.3 cm/sec MV A max ana m 90.6 cm/sec MV E/A 0.89 MV dec time 0.20 sec Ao V2 max 141.1 cm/sec Ao max PG 8.0 mmHg Ao max PG (full) 2.8 mmHg LV V1 max PG 5.1 mmHg LV V1 max 113.3 cm/sec PA V2 max 113.0 cm/sec PA max PG 5.1 mmHg PI max ana m 111.3 cm/sec PI max PG 5.0 mmHg PI dec slope 207.1 cm/sec\S\2 PI P1/2t 157.4 msec TR max ana m 279.1 cm/sec
--- NOTE | 2017-04-24 16:32 | Progress Note ---
Internal Med Progress Note Date of Service: Apr 24, 2017. Provider Documentation: SUBJECTIVE: mentions that breathing is much better no audible wheeze or respiratory distress on 2 L 02 via nasal canula no fever or chills no tremor or sign of alcohol withdrawl OBJECTIVE: Vital Signs-as noted below Exam: General-chronically ill appearing , no apparent distress, conversing Eyes-sclera non icteric ENT-poor dentition , hearing grossly normal , normal oropharynx Neck-trachea midline , no thyromegaly Lungs-diminished , with scatted wheeze Heart-regular S1/S2 , no JVD , no lower ext edema Abdomen-soft, non tender Extremities- no cyanosis , no rash or deformity Neuro-AAO x3, no focal neurological deficit Lab data as noted below. ASSESSMENT & PLAN: ACUTE HYPOXIC RESPIRATORY FAILURE COPD EXACERBATION respiratory status improved ; on 2 L supplemental 02 ( was not on home 02 ) - presented with increasing shortness of breath and productive cough. - has been having shortness of breath / COPD exacerbations for the past several months; has been on several course of antibiotics and steroids; had outpatient PFTs that showed severe COPD, patient declined pulmonary evaluation - former heavy smoker quit 1 year ago; was smoking up to 4 PPD a day - CT chest with contrast : IMPRESSION: 1. No evidence for pulmonary embolus with limitations as described above. 2. Small focal consolidation within the left lower lobe. This likely represents a pneumonia. Recommend 2-[address] follow-up to ensure resolution. 3. Severe emphysema. - s/p solumedrol 125mg IV in the ED; continue with Prednisone 40mg PO x 5 days empiric Abx with Rocephin and Zithromax - consulted pulmonary, input appreciated pt will need out pt follow up with Pulmonology for severe COPD repeat Chest xray in 6 weeks to asses for complete resolution of left lower lobe infiltrate ELEVATED TROPONIN no evidence of ACS - likely demand ischemia from hypoxia, no reports of chest pain - ECHO : The left ventricle is normal in size. * The left ventricular wall motion is normal. * Ejection Fraction = 55-60%. * The right ventricular systolic function is normal. * No significant valvular pathology; no wall motion abnormality LACTIC ACIDEMIA normal level after Iv hydration - no signs of sepsis - possibly due to hypoxia and/or ETOH abuse - ETOH ABUSE - patient drinks 2-3 mixed drinks and 6 beers / day - started ETOH withdrawal protocol with gabapentin, PRN Ativan - cont multivitamin, folic acid, and thiamine DVT PROPHYLAXIS - SQ Lovenox CODE STATUS - FULL CODE DISPOSITION pt mentions of feeling weak and off balance while ambulating PT/OT eval prior to discharge social service consulted for discharge planning Vital Signs: Date Time Temp Pulse Resp B/P (MAP) Pulse Ox O2 Delivery O2 Flow Rate FiO2 04/24/17 16:00 Nasal Cannula 2.0 04/24/17 15:51 36.8 96 22 128/80 (96) 97 Nasal Cannula 2.0 04/24/17 14:16 88 18 82 Room Air 04/24/17 12:00 Nasal Cannula 2.0 04/24/17 11:27 36.5 87 18 141/73 (95) 95 Nasal Cannula 2.0 04/24/17 08:11 36.7 115 20 122/64 (83) 94 Nasal Cannula 2.0 04/24/17 08:00 Nasal Cannula 2.0 04/24/17 07:36 77 16 96 Nasal Cannula 2.0 04/24/17 04:00 Nasal Cannula 2.0 04/24/17 03:30 36.7 84 18 124/76 (92) 97 Nasal Cannula 2.0 04/24/17 02:03 90 16 95 Nasal Cannula 2.0 04/24/17 00:00 Nasal Cannula 2.0 04/23/17 23:48 36.6 86 20 137/73 (94) 96 Room Air 04/23/17 20:00 Nasal Cannula 2.0 04/23/17 19:38 36.6 106 20 141/85 (103) 95 Nasal Cannula 2.0 04/23/17 19:07 104 16 96 Nasal Cannula 2.0 Lab Results: Results Past 24 Hours Test 04/23/17 22:21 04/24/17 00:00 04/24/17 00:22 04/24/17 05:58 Range/Units Lactic Acid Level 4.7 1.3 0.4-2.0 mmol/L Creatine Kinase MB Ratio 0-3.0 Creatine Kinase MB 2.5 0.5-3.6 ng/ml Troponin I 0.054 0-0.045 ng/ml White Blood Count 7.13 4.8-10.8 K/uL Red Blood Count 3.48 4.7-6.1 M/uL Hemoglobin 12.1 14.0-18.0 g/dL Hematocrit 34.9 42-52 % Mean Corpuscular Volume 100.3 80-100 fL Mean Corpuscular Hemoglobin 34.8 25-34 pg Mean Corpuscular Hemoglobin Concent 34.7 32-36 g/dl RDW Standard Deviation 50.4 36.4-46.3 fL RDW Coefficient of Variation 13.8 11.5-14.5 % Platelet Count 163 130-400 K/uL Mean Platelet Volume 9.3 7.4-10.4 fL Sodium Level 138 136-145 mmol/L Potassium Level 3.7 3.5-5.1 mmol/L Chloride Level 106 98-107 mmol/L Carbon Dioxide Level 25 21-32 mmol/L Anion Gap 8.0 3-11 mmol/L Blood Urea Nitrogen 8 7-18 mg/dl Creatinine 0.84 0.60-1.40 mg/dl Est Creatinine Clear Calc Drug Dose 52.6 ml/min Estimated GFR () 100.0 Estimated GFR (Non- 86.3 BUN/Creatinine Ratio 9.9 10-20 Random Glucose 169 70-99 mg/dl Calcium Level 8.4 8.5-10.1 mg/dl Triglycerides Level 50 0-150 mg/dl Cholesterol Level 102 0-200 mg/dl HDL Cholesterol 52 mg/dl LDL Cholesterol, Calculated 40 mg/dl VLDL Cholesterol, Calculated 10 mg/dl Cholesterol/HDL Ratio 2.0 Test 04/24/17 11:47 04/24/17 12:25 Range/Units Microbiology Results 04/24/17 Gram Stain, Received Pending 04/24/17 Sputum Culture, Received Pending
[2017-04-24] MEDS: CEFTRIAXONE SOD INJ 1 GM in DEXTROSE 5% ADD-VANTAGE 50ML 50 ML IV SCH (17:24)
[2017-04-24] MEDS: GABAPENTIN 600MG Q8H DOSE PO SCH ×2 (17:25→21:06)
[2017-04-24] MEDS ORDERED: CALCIUM CARBONATE 500 MG CHEWABLE PO PRN (18:30)
[2017-04-24] MEDS: DORNASE ALFA (2500U) 2.5MG/2.5ML INH SCH (19:57)
[2017-04-24] MEDS: ENOXAPARIN 30 MG/0.3 ML SYR SC SCH (21:07)
[2017-04-25] VITALS (11 sets, daily range): BP systolic 116–164; BP diastolic 66–87; PULSE 71–94; TEMP 36.5–36.8; O2SAT 95–98
[2017-04-25] MEDS: GABAPENTIN 600MG Q8H DOSE PO SCH (06:12)
[2017-04-25] MEDS: IPRATROPIUM BROMIDE NEB SOLN 0.02% 2.5 ML VIAL INH SCH ×3 (07:12→19:21)
[2017-04-25] MEDS: DORNASE ALFA (2500U) 2.5MG/2.5ML INH SCH ×2 (07:12→19:21)
[2017-04-25] MEDS: LEVALBUTEROL 1.25MG/0.5ML NEB INH SCH ×3 (07:12→19:21)
[2017-04-25] MEDS: MULTIVITAMIN TAB PO SCH (08:08)
[2017-04-25] MEDS: FLUTICASONE/SALMETEROL 250/50 (ADVAIR) 14 PUFF/1 INHALER INH SCH ×2 (08:08→20:59)
[2017-04-25] MEDS: AZITHROMYCIN 250 MG TAB PO SCH (08:09)
[2017-04-25] MEDS: THIAMINE HCL 100 MG TAB PO SCH (08:09)
[2017-04-25] MEDS: ASPIRIN 81 MG ECTAB PO SCH (08:09)
[2017-04-25] MEDS ORDERED: AZITHROMYCIN 250 MG TAB PO SCH (09:00)
--- NOTE | 2017-04-25 16:49 | Progress Note ---
Internal Med Progress Note Date of Service: Apr 25, 2017. Provider Documentation: SUBJECTIVE: breathing much better, no wheeze still has productive cough requiring 2 L 02 mentions of getting SOB while trying to go to bathroom without supplemental 02 no complain of anxiety or tremor no evidence of alcohol withdrawal symptom OBJECTIVE: Vital Signs-as noted below Exam: General-chronically ill appearing , no apparent distress, conversing Eyes-sclera non icteric ENT-poor dentition , hearing grossly normal , normal oropharynx Neck-trachea midline , no thyromegaly Lungs-diminished , with scatted wheeze Heart-regular S1/S2 , no JVD , no lower ext edema Abdomen-soft, non tender Extremities- no cyanosis , no rash or deformity Neuro-AAO x3, no focal neurological deficit Lab data as noted below. ASSESSMENT & PLAN: ACUTE HYPOXIC RESPIRATORY FAILURE COPD EXACERBATION respiratory status improved ; on 2 L supplemental 02 ( was not on home 02 ) - presented with increasing shortness of breath and productive cough. - has been having shortness of breath / COPD exacerbations for the past several months; has been on several course of antibiotics and steroids; had outpatient PFTs that showed severe COPD, patient declined pulmonary evaluation - former heavy smoker quit 1 year ago; was smoking up to 4 PPD a day - CT chest with contrast : IMPRESSION: 1. No evidence for pulmonary embolus with limitations as described above. 2. Small focal consolidation within the left lower lobe. This likely represents a pneumonia. Recommend 2-[address] follow-up to ensure resolution. 3. Severe emphysema. - s/p solumedrol 125mg IV in the ED; continue with Prednisone 40mg PO x 5 days empiric Abx with Rocephin and Zithromax - consulted pulmonary, input appreciated pt will need out pt follow up with Pulmonology for severe COPD repeat Chest xray in 6 weeks to asses for complete resolution of left lower lobe infiltrate will need home 02 2 step exercise prior to discharge home LEFT LOWER LOBE PNEUMONIA : Small focal consolidation within the left lower lobe pt is empirically treated with Rocephin /Zithromax no evidence of sepsis sputum culture -normal kun complete 5-7 days of Abx course ELEVATED TROPONIN no evidence of ACS - likely demand ischemia from hypoxia, no reports of chest pain - ECHO : The left ventricle is normal in size. * The left ventricular wall motion is normal. * Ejection Fraction = 55-60%. * The right ventricular systolic function is normal. * No significant valvular pathology; no wall motion abnormality LACTIC ACIDEMIA normal level after Iv hydration - no signs of sepsis - possibly due to hypoxia and/or ETOH abuse - ETOH ABUSE - patient drinks 2-3 mixed drinks and 6 beers / day - started ETOH withdrawal protocol with gabapentin, PRN Ativan - cont multivitamin, folic acid, and thiamine -at present no evidence of active withdrawal -pt is willing to quit drinking -wants to do it by himself, not interested in rehab DVT PROPHYLAXIS - SQ Lovenox CODE STATUS - FULL CODE DISPOSITION PT/OT eval prior to discharge social service consulted for discharge planning Vital Signs: Date Time Temp Pulse Resp B/P (MAP) Pulse Ox O2 Delivery O2 Flow Rate FiO2 04/26/17 12:00 Nasal Cannula 2.0 04/26/17 11:55 36.6 86 18 144/76 (98) 96 04/26/17 08:00 Nasal Cannula 2.0 04/26/17 07:45 36.4 62 18 151/75 (100) 94 2.0 04/26/17 07:01 87 18 98 Nasal Cannula 3.0 04/26/17 05:07 36.5 77 18 162/82 (108) 98 Nasal Cannula 3.0 04/26/17 04:00 Nasal Cannula 2.0 04/26/17 01:32 81 18 98 Nasal Cannula 3.0 04/26/17 00:00 Nasal Cannula 2.0 04/25/17 22:30 36.5 73 20 164/87 (112) 98 Nasal Cannula 2.0 04/25/17 22:22 36.6 73 16 98 2.0 04/25/17 20:00 Nasal Cannula 2.0 04/25/17 19:21 73 16 98 Nasal Cannula 3.0 04/25/17 19:10 36.6 79 19 121/70 (87) 95 Nasal Cannula 3.0 04/25/17 16:00 Nasal Cannula 2.0 04/25/17 15:09 36.8 72 20 148/80 (102) 97 Nasal Cannula 3.0 04/25/17 14:10 72 16 98 Nasal Cannula 3.0
[2017-04-25] MEDS: CEFTRIAXONE SOD INJ 1 GM in DEXTROSE 5% ADD-VANTAGE 50ML 50 ML IV SCH (17:18)
[2017-04-25] MEDS: GABAPENTIN 600MG Q12H DOSE PO SCH (17:18)
[2017-04-25] MEDS: ENOXAPARIN 30 MG/0.3 ML SYR SC SCH (20:58)
[2017-04-26] VITALS (11 sets, daily range): BP systolic 132–162; BP diastolic 75–82; PULSE 62–92; TEMP 36.4–36.7; O2SAT 94–99
[2017-04-26] MEDS: LEVALBUTEROL 1.25MG/0.5ML NEB INH SCH ×4 (01:32→19:13)
[2017-04-26] MEDS: IPRATROPIUM BROMIDE NEB SOLN 0.02% 2.5 ML VIAL INH SCH ×4 (01:32→19:12)
[2017-04-26] MEDS: GABAPENTIN 600MG Q12H DOSE PO SCH (05:45)
[2017-04-26] MEDS: DORNASE ALFA (2500U) 2.5MG/2.5ML INH SCH ×2 (07:01→19:13)
[2017-04-26] MEDS: FLUTICASONE/SALMETEROL 250/50 (ADVAIR) 14 PUFF/1 INHALER INH SCH ×2 (07:52→20:44)
[2017-04-26] MEDS: AZITHROMYCIN 250 MG TAB PO SCH (07:52)
[2017-04-26] MEDS: ASPIRIN 81 MG ECTAB PO SCH (07:53)
[2017-04-26] MEDS: THIAMINE HCL 100 MG TAB PO SCH (07:53)
[2017-04-26] MEDS: MULTIVITAMIN TAB PO SCH (07:53)
--- NOTE | 2017-04-26 12:02 | Clinical Documentation Query ---
CLINICAL DOCUMENTATION QUERY 76 year old male who presents to the ED with shortness of breath. In your clinical opinion is this patient being managed for: ( x) Pneumonia evidenced by Chest CT findings and presenting symptoms treated with IV Ceftriaxone. ( ) Not Agree ( ) Other explanation of clinical findings (Please Explain) ( ) Unable to determine (Please Define) ( ) Need to Discuss The medical record reflects the following clinical findings, treatment, and risk factors. Clinical Indicators: RA hypoxia of 88%, COPD exacerbation, Acute hypoxic respiratory failure, Lactic acid 4.7, & Chest CT showing a small focal consolidation within the left lower lobe that likely represents a pneumonia. . Treatment: IV Ceftriaxone, O2, pulmonary consult, Risk Factors: Age, severe COPD with bronchietasis. Please clarify and document your clinical opinion in the progress notes and discharge summary. Terms such as "probable", "suspected", "likely", "questionable", "possible", or "still to be ruled out" are acceptable. IF IN AGREEMENT, YOU MUST DOCUMENT ABOVE DIAGNOSTIC STATEMENT IN DAILY PROGRESS NOTES AND DISCHARGE SUMMARY. This document is not part of the patient's record. Thank You, Mario Houser RN [phone]
--- NOTE | 2017-04-26 12:20 | Discharge Instructions ---
Discharge Instructions Date of Service Apr 26, 2017. Admission Reason for Admission: Copd Exacerbation Discharge Discharge Diagnosis / Problem: COPD EXACERBATION /ETOH ABUSE Discharge Goals Goal(s): Decrease discomfort, Improve function, Increase independence, Improve disease control, Diagnostic testing, Therapeutic intervention Activity Recommendations Activity Limitations: resume your previous activity Exercise/Sports Limitations: none . Instructions / Follow-Up Instructions / Follow-Up HOSPITAL FOLLOW UP : 05/03/2017 3:00 PM Abram Owens MD Internal Medicine [facility] FOLLOW UP WITH PULMONOLOGY DR ALONSO IN 2-3 WEEKS , PLEASE CALL OFFICE FOR APPOINTMENT IT IS VERY IMPORTANT FOR YOU TO QUIT DRINKING PERSISTED FOCAL CONSOLIDATION IN LEFT LOWER LOBE , RECOMMEND 2-[address] CHEST WITH CONTRAST FOLLOW UP TO ENSURE RESOLUTION Current Hospital Diet Patient's current hospital diet: AHA Diet (Heart Healthy) Discharge Diet Recommended Diet: AHA Diet (Heart Healthy) Pending Studies Studies pending at discharge: yes List of pending studies: PERSISTED FOCAL CONSOLIDATION IN LEFT LOWER LOBE , RECOMMEND 2-[address] CHEST WITH CONTRAST FOLLOW UP TO ENSURE RESOLUTION Laboratory Results Hemoglobin A1c Test 04/23/17 12:10 Range/Units Estimated Average Glucose 97 mg/dl Hemoglobin A1c 5.0 4.5-5.6 % Lipid Panel Test 04/24/17 05:58 Range/Units Triglycerides Level 50 0-150 mg/dl Cholesterol Level 102 0-200 mg/dl HDL Cholesterol 52 mg/dl Cholesterol/HDL Ratio 2.0 LDL Cholesterol, Calculated 40 mg/dl Medical Emergencies . Who to Call and When: Medical Emergencies: If at any time you feel your situation is an emergency, please call 911 immediately. . Non-Emergent Contact Non-Emergency issues call your: Primary Care Provider . . "Provider Documentation" section prepared by Mercedes Wei. . VTE Core Measure Inpt VTE Proph given/why not?: Unfractionated heparin SQ
[2017-04-26] MEDS ORDERED: AZIT-57 PO (12:23)
[2017-04-26] MEDS ORDERED: PRED20TA2 PO (12:23)
[2017-04-26] MEDS ORDERED: FLV1 PO (12:23)
[2017-04-26] MEDS ORDERED: THM100 PO (12:23)
[2017-04-26] MEDS: CEFTRIAXONE SOD INJ 1 GM in DEXTROSE 5% ADD-VANTAGE 50ML 50 ML IV SCH (16:50)
[2017-04-26] MEDS: ENOXAPARIN 30 MG/0.3 ML SYR SC SCH (20:44)
--- NOTE | 2017-04-26 22:34 | Progress Note ---
Internal Med Progress Note Date of Service: Apr 26, 2017. Provider Documentation: SUBJECTIVE: required supplemental 02 eager to go home tomorrow , agreeable for home 02 wants portable 02 as well so he can go to stores no fever or chills cough has improved no sign of agitation or tremor daughter visiting OBJECTIVE: Vital Signs-as noted below Exam: General-chronically ill appearing , no apparent distress, conversing Eyes-sclera non icteric ENT-poor dentition , hearing grossly normal , normal oropharynx Neck-trachea midline , no thyromegaly Lungs-diminished , minimum wheeze Heart-regular S1/S2 , no JVD , no lower ext edema Abdomen-soft, non tender Extremities- no cyanosis , no rash or deformity Neuro-AAO x3, no focal neurological deficit Lab data as noted below. ASSESSMENT & PLAN: ACUTE HYPOXIC RESPIRATORY FAILURE COPD EXACERBATION respiratory status improved ; on 3 L supplemental 02 ( was not on home 02 ) - presented with increasing shortness of breath and productive cough. - has been having shortness of breath / COPD exacerbations for the past several months; has been on several course of antibiotics and steroids; had outpatient PFTs that showed severe COPD, patient declined pulmonary evaluation - former heavy smoker quit 1 year ago; was smoking up to 4 PPD a day - CT chest with contrast : IMPRESSION: 1. No evidence for pulmonary embolus with limitations as described above. 2. Small focal consolidation within the left lower lobe. This likely represents a pneumonia. Recommend 2-[address] follow-up to ensure resolution. 3. Severe emphysema. - s/p solumedrol 125mg IV in the ED; on PO Prednisone 40 mg daily can be discharged home with PO Prednisone taper on empiric Abx with Rocephin and Zithromax Abx changed to to Oral Zithromax , complete total 7 days course - consulted pulmonary, input appreciated pt will need out pt follow up with Pulmonology for severe COPD repeat Chest xray in 6 weeks to asses for complete resolution of left lower lobe infiltrate will need home 02 2 step exercise ordered for AM LEFT LOWER LOBE PNEUMONIA : Small focal consolidation within the left lower lobe pt is empirically treated with Rocephin /Zithromax no evidence of sepsis sputum culture -normal kun complete 5-7 days of Abx course ELEVATED TROPONIN no evidence of ACS - likely demand ischemia from hypoxia, no reports of chest pain - ECHO : The left ventricle is normal in size. * The left ventricular wall motion is normal. * Ejection Fraction = 55-60%. * The right ventricular systolic function is normal. * No significant valvular pathology; no wall motion abnormality LACTIC ACIDEMIA normal level after Iv hydration - no signs of sepsis - possibly due to hypoxia and/or ETOH abuse - ETOH ABUSE - patient drinks 2-3 mixed drinks and 6 beers / day - started ETOH withdrawal protocol with gabapentin, PRN Ativan - cont multivitamin, folic acid, and thiamine -at present no evidence of active withdrawal -pt is willing to quit drinking -wants to do it by himself, not interested in rehab DVT PROPHYLAXIS - SQ Lovenox CODE STATUS - FULL CODE DISPOSITION PT/OT eval appreciated stable to be discharged home with family support will benefit with home health and home PT possible discharge home tomorrow needs arrangement for home 02 social service consulted for discharge planning Vital Signs: Date Time Temp Pulse Resp B/P (MAP) Pulse Ox O2 Delivery O2 Flow Rate FiO2 04/26/17 20:09 36.4 85 20 132/78 (96) 99 Room Air 04/26/17 19:13 92 20 98 Nasal Cannula 2.0 04/26/17 16:00 95 Nasal Cannula 2.0 04/26/17 15:10 36.7 83 16 140/76 (97) 95 2.0 04/26/17 14:13 86 20 96 Nasal Cannula 2.0 04/26/17 12:00 Nasal Cannula 2.0 04/26/17 11:55 36.6 86 18 144/76 (98) 96 04/26/17 08:00 Nasal Cannula 2.0 04/26/17 07:45 36.4 62 18 151/75 (100) 94 2.0 04/26/17 07:01 87 18 98 Nasal Cannula 3.0 04/26/17 05:07 36.5 77 18 162/82 (108) 98 Nasal Cannula 3.0 04/26/17 04:00 Nasal Cannula 2.0 04/26/17 01:32 81 18 98 Nasal Cannula 3.0 04/26/17 00:00 Nasal Cannula 2.0 04/25/17 22:30 36.5 73 20 164/87 (112) 98 Nasal Cannula 2.0
[2017-04-27] VITALS (8 sets, daily range): BP systolic 132–172; BP diastolic 71–81; PULSE 67–106; TEMP 36.3–37; O2SAT 91–98
[2017-04-27] MEDS: IPRATROPIUM BROMIDE NEB SOLN 0.02% 2.5 ML VIAL INH SCH ×4 (01:55→19:12)
[2017-04-27] MEDS: LEVALBUTEROL 1.25MG/0.5ML NEB INH SCH ×4 (01:55→19:12)
[2017-04-27 05:57] LABS: HEMATOCRIT 36.4 % (42-52); MEAN CELL VOLUME 103.7 fL (80-100); MEAN CORPUSCULAR HEMOGLOBIN 34.8 pg (25-34); MEAN CORPUSCULAR HGB CONC 33.5 g/dl (32-36); MEAN PLATELET VOLUME 9.3 fL (7.4-10.4); PLATELET COUNT 167 K/uL (130-400); RED BLOOD COUNT 3.51 M/uL (4.7-6.1); WHITE BLOOD COUNT 7.29 K/uL (4.8-10.8)
[2017-04-27] MEDS ORDERED: GABAPENTIN 600MG X1 DOSE PO SCH (06:00)
[2017-04-27 06:26] LABS: CREATININE 0.83 mg/dl (0.60-1.40)
[2017-04-27] MEDS: DORNASE ALFA (2500U) 2.5MG/2.5ML INH SCH ×2 (07:30→19:12)
[2017-04-27] MEDS: AZITHROMYCIN 250 MG TAB PO SCH (07:55)
[2017-04-27] MEDS: ASPIRIN 81 MG ECTAB PO SCH (07:55)
[2017-04-27] MEDS: THIAMINE HCL 100 MG TAB PO SCH (07:56)
[2017-04-27] MEDS: MULTIVITAMIN TAB PO SCH (07:56)
[2017-04-27] MEDS: FLUTICASONE/SALMETEROL 250/50 (ADVAIR) 14 PUFF/1 INHALER INH SCH ×2 (07:56→20:43)
[2017-04-27 10:29] LABS: LEGIONELLA ANTIGEN NOT DETECTED (NOT DETECTED)
--- NOTE | 2017-04-27 17:02 | Progress Note ---
Internal Med Progress Note Date of Service: Apr 27, 2017. Provider Documentation: SUBJECTIVE: Seen and examined at bedside States feeling well Less cough Denies chest pain, SOB No other complaints OBJECTIVE: Vital Signs-as noted below Physical Exam: General Appearance:Moderately built and nourished, no apparent distress Head: normocephalic, Atraumatic Eyes: normal inspection, EOMI, PERRL Neck: supple, Trachea midline Respiratory/Chest: Decreased breath sounds, Mild expiratory wheezes bilaterally Cardiovascular: S1, S2, No murmur Abdomen/GI:Soft, Non tender, Bowel sounds present Extremities/Musculoskelatal:normal inspection, no edema Neurologic/Psych:AAOX3, grossly no focal neurological deficits Skin: normal color, warm Lab data as noted below. ASSESSMENT & PLAN: Acute Hypoxic respiratory Failure Acute COPD Exacerbation Continue bronchodilators, prednisone Improved 2step: Needs 2 liters of oxygen with ambulation Had outpatient PFTs that showed severe COPD Former smoker: quit 1 year ago; smoked up to 4 PPD a day CTA chest: as below empiric Abx with Rocephin and Zithromax Appreciate pulmonary input Needs follow up with Pulmonary as outpatient Left Lower Lobe Pneumonia: Small focal consolidation within the left lower lobe Treated empirically with Rocephin /Zithromax no evidence of sepsis sputum culture:-normal kun Needs repeat CT chest in 2-3 month to ensure resolution. Elevated Troponin no evidence of ACS likely demand ischemia from hypoxia Denies chest pain ECHO : The left ventricle is normal in size. * The left ventricular wall motion is normal. * Ejection Fraction = 55-60%. * The right ventricular systolic function is normal. * No significant valvular pathology; no wall motion abnormality Lactic Acidosis: Likely secondary to Hypoxia/Alcohol use levels normalized after IVF no signs of sepsis - ETOH Abuse: patient drinks 2-3 mixed drinks and 6 beers / day Alcohol withdrawal protocol with gabapentin, PRN Ativan continue multivitamin, folic acid, and thiamine No signs of withdrawal Patient not interested in rehab but willing to quit DVT Px: Lovenox SQ Code Status: Full Code Disposition: Plan to discharge home social service consulted for discharge planning Needs Oxygen set up Needs follow up with Pulmonology PROCEDURES: CTA: 1. No evidence for pulmonary embolus with limitations as described above. 2. Small focal consolidation within the left lower lobe. This likely represents a pneumonia. Recommend 2-[address] follow-up to ensure resolution. 3. Severe emphysema. Vital Signs: Date Time Temp Pulse Resp B/P (MAP) Pulse Ox O2 Delivery O2 Flow Rate FiO2 04/27/17 16:08 Room Air 04/27/17 15:35 37.0 87 22 132/75 (94) 93 Nasal Cannula 2.0 04/27/17 14:15 106 20 97 Nasal Cannula 2.0 04/27/17 08:05 Room Air 04/27/17 07:42 36.3 67 16 149/71 (97) 97 Nasal Cannula 2.0 04/27/17 07:30 72 18 97 Nasal Cannula 2.0 04/27/17 01:57 68 18 98 Nasal Cannula 2.0 04/27/17 00:26 36.5 90 18 152/73 (99) 97 Nasal Cannula 2.0 04/27/17 00:00 Nasal Cannula 2.0 04/26/17 20:09 36.4 85 20 132/78 (96) 99 Room Air 04/26/17 20:00 95 Nasal Cannula 2.0 04/26/17 19:13 92 20 98 Nasal Cannula 2.0 Lab Results: Results Past 24 Hours Test 04/27/17 05:24 Range/Units White Blood Count 7.29 4.8-10.8 K/uL Red Blood Count 3.51 4.7-6.1 M/uL Hemoglobin 12.2 14.0-18.0 g/dL Hematocrit 36.4 42-52 % Mean Corpuscular Volume 103.7 80-100 fL Mean Corpuscular Hemoglobin 34.8 25-34 pg Mean Corpuscular Hemoglobin Concent 33.5 32-36 g/dl RDW Standard Deviation 52.9 36.4-46.3 fL RDW Coefficient of Variation 14.1 11.5-14.5 % Platelet Count 167 130-400 K/uL Mean Platelet Volume 9.3 7.4-10.4 fL Creatinine 0.83 0.60-1.40 mg/dl Est Creatinine Clear Calc Drug Dose 66.4 ml/min Estimated GFR () 100.5 Estimated GFR (Non- 86.7
[2017-04-27] MEDS: ENOXAPARIN 30 MG/0.3 ML SYR SC SCH (20:43)
[2017-04-28] MEDS: IPRATROPIUM BROMIDE NEB SOLN 0.02% 2.5 ML VIAL INH SCH ×2 (02:20→07:20)
[2017-04-28] MEDS: LEVALBUTEROL 1.25MG/0.5ML NEB INH SCH ×2 (02:20→07:20)
[2017-04-28 02:22] VITALS: PULSE 89; O2SAT 90
[2017-04-28 07:21] VITALS: PULSE 71; O2SAT 95
[2017-04-28] MEDS: DORNASE ALFA (2500U) 2.5MG/2.5ML INH SCH (07:22)
[2017-04-28 08:01] VITALS: BP 148/87; PULSE 87; TEMP 36.6; O2SAT 93
[2017-04-28] MEDS: FLUTICASONE/SALMETEROL 250/50 (ADVAIR) 14 PUFF/1 INHALER INH SCH (08:03)
[2017-04-28] MEDS: THIAMINE HCL 100 MG TAB PO SCH (08:04)
[2017-04-28] MEDS: MULTIVITAMIN TAB PO SCH (08:04)
[2017-04-28] MEDS: ASPIRIN 81 MG ECTAB PO SCH (08:04)
[2017-04-28] MEDS: AZITHROMYCIN 250 MG TAB PO SCH (08:05)
--- NOTE | 2017-04-28 08:39 | Progress Note ---
Internal Med Progress Note Date of Service: Apr 28, 2017. Provider Documentation: SUBJECTIVE: Seen and examined at bedside Eager to get discharged Doing well No new complaints Less cough Denies chest pain, SOB OBJECTIVE: Vital Signs-as noted below Physical Exam: General Appearance:Moderately built and nourished, no apparent distress Head: normocephalic, Atraumatic Eyes: normal inspection, EOMI, PERRL Neck: supple, Trachea midline Respiratory/Chest: Decreased breath sounds, CTA Cardiovascular: S1, S2, No murmur Abdomen/GI:Soft, Non tender, Bowel sounds present Extremities/Musculoskelatal:normal inspection, no edema Neurologic/Psych:AAOX3, grossly no focal neurological deficits Skin: normal color, warm Lab data as noted below. ASSESSMENT & PLAN: Acute Hypoxic respiratory Failure Acute COPD Exacerbation Continue bronchodilators, prednisone Improved clinically 2step: Needs 2 liters of oxygen with ambulation Had outpatient PFTs that showed severe COPD Former smoker: quit 1 year ago; smoked up to 4 PPD a day CTA chest: as below empiric Abx with Rocephin and Zithromax Appreciate pulmonary input Needs follow up with Pulmonary as outpatient Left Lower Lobe Pneumonia: Small focal consolidation within the left lower lobe Treated empirically with Rocephin /Zithromax no evidence of sepsis sputum culture:-normal kun Needs repeat CT chest in 2-3 month as outpatient to ensure resolution. Elevated Troponin no evidence of ACS likely demand ischemia from hypoxia Denies chest pain ECHO : The left ventricle is normal in size. * The left ventricular wall motion is normal. * Ejection Fraction = 55-60%. * The right ventricular systolic function is normal. * No significant valvular pathology; no wall motion abnormality Lactic Acidosis: Likely secondary to Hypoxia/Alcohol use levels normalized after IVF no signs of sepsis - ETOH Abuse: patient drinks 2-3 mixed drinks and 6 beers / day Alcohol withdrawal protocol with gabapentin, PRN Ativan continue multivitamin, folic acid, and thiamine No signs of withdrawal Patient not interested in rehab but willing to quit on his own DVT Px: Lovenox SQ Code Status: Full Code Disposition: Plan to discharge home today social service consulted for discharge planning Advised to follow up with Pulmonology in 2 weeks PROCEDURES: CTA: 1. No evidence for pulmonary embolus with limitations as described above. 2. Small focal consolidation within the left lower lobe. This likely represents a pneumonia. Recommend 2-[address] follow-up to ensure resolution. 3. Severe emphysema. Vital Signs: Date Time Temp Pulse Resp B/P (MAP) Pulse Ox O2 Delivery O2 Flow Rate FiO2 04/28/17 08:01 36.6 87 20 148/87 (107) 93 Room Air 04/28/17 07:21 71 18 95 Room Air 04/28/17 02:22 89 18 90 Room Air 04/28/17 00:00 Room Air 04/27/17 23:37 36.6 81 16 172/81 (111) 91 04/27/17 19:12 104 20 96 Room Air 04/27/17 16:08 Room Air 04/27/17 15:35 37.0 87 22 132/75 (94) 93 Nasal Cannula 2.0 04/27/17 14:15 106 20 97 Nasal Cannula 2.0
--- NOTE | 2017-04-28 08:42 | Discharge Summary ---
Discharge Summary Date of Service Apr 28, 2017. Discharge Summary Admission Date: Apr 23, 2017 at 14:33 Discharge Date: Apr 28, 2017 Discharge Disposition: Home Principal Diagnosis: COPD EXACERBATION /ETOH ABUSE Procedures: CTA: 1. No evidence for pulmonary embolus with limitations as described above. 2. Small focal consolidation within the left lower lobe. This likely represents a pneumonia. Recommend 2-[address] follow-up to ensure resolution. 3. Severe emphysema. ECHO: * The left ventricle is normal in size. * The left ventricular wall motion is normal. * Ejection Fraction = 55-60%. * The right ventricular systolic function is normal. * No significant valvular pathology Consultations: Pulmonology Pending Studies/Follow-Up: HOSPITAL FOLLOW UP : 05/03/2017 3:00 PM Abram Owens MD Internal Medicine [facility] FOLLOW UP WITH PULMONOLOGY DR ALONSO IN 2-3 WEEKS , PLEASE CALL OFFICE FOR APPOINTMENT IT IS VERY IMPORTANT FOR YOU TO QUIT DRINKING PERSISTED FOCAL CONSOLIDATION IN LEFT LOWER LOBE , RECOMMEND 2-[address] CHEST WITH CONTRAST FOLLOW UP TO ENSURE RESOLUTION Medication Reconciliation New Medications: Prednisone (Prednisone Tab) 20 Mg Tab 0 PO DAILY, #7 TAB 2 TABS DAILY FOR 2 DAYS, THEN 1 TAB DAILY FOR 2 DAYS, THEN 1/2 TAB DAILY FOR 2 DAYS. Azithromycin (Azithromycin) 250 Mg Tab 500 MG PO QAM for 2 Days, #4 TAB Folic Acid (Folic Acid) 1 Mg Tab 1 MG PO QAM for 30 Days, #30 TAB 2 Refills Thiamine HCl (Vitamin B-1) 100 Mg Tab 100 MG PO QAM for 30 Days, #30 TAB 2 Refills Continued Medications: Albuterol Sulfate (Proair Respiclick) 108 Mcg/Act Aer 2 PUFF PO Q4H PRN for SOB/Wheezing Fluticasone Prop/Salmeterol (Advair Diskus 250/50 60 Dose) 1 Ea Aerp 1 PUFF INH BID, INHALER Admission Information HPI (per Admitting provider): 76 year old male who presents to the ED with shortness of breath. Patient's pulmonary problems date back to this spring. 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 He presented to his PCPs office this spring for complaints of shortness of breath. He underwent PFTs that showed severe COPD. Patient declined pulmonary evaluation. Since then he has been on several courses of antibiotics and steroids for COPD exacerbation and bronchitis. Most recently patient was seen in the ED on 03/07 and was given Levaquin and Prednisone. He completed both courses. He reports he initially felt better but his symptoms returned about one week ago. He reports progressive increasing shortness of breath. He has shortness of breath with minimal exertion. He has a cough productive for green sputum. He denies fever and chills. He reports his chest felt tight and that he couldn't get a deep breath in. He denies chest pressure and palpitations. He reports lightheadedness and dizziness but denies any syncopal events. He reports a good appetite. No abdominal pain, nausea, vomiting, or diarrhea. Denies weight loss. No urinary symptoms. When EMS arrived, patient was saturating in the low 80s. He was placed on NRB mask and given nebs and solumedrol. In the ED, patient was 88% on room air which improved with oxygen 2L via NC. He was given solumedrol, neb, Levaquin, and full dose ASA. Troponin is mildly elevated at 0.068, EKG does not show any acute ST changes. Physical Exam (per Admitting): General Appearance: WD/WN, no apparent distress, + pertinent finding ( chronically ill appearing) Head: normocephalic, atraumatic Eyes: normal inspection, EOMI, sclerae normal ENT: hearing grossly normal, + pertinent finding (mucous membranes moist) Neck: supple, no JVD, trachea midline Respiratory/Chest: no respiratory distress, + decreased breath sounds, + pertinent finding (saturating well on 2L, short of breath with minimal exertion , able to speak in full sentences) Cardiovascular: regular rate, rhythm, no edema, normal peripheral pulses Abdomen/GI: normal bowel sounds, non tender, soft, no organomegaly Extremities/Musculoskelatal: normal inspection, no calf tenderness, normal capillary refill Neurologic/Psych: no motor/sensory deficits, alert, normal mood/affect, oriented x 3 Skin: normal color, warm/dry Hospital Course Acute Hypoxic respiratory Failure Acute COPD Exacerbation Continue bronchodilators, prednisone Improved clinically 2step: Needs 2 liters of oxygen with ambulation Had outpatient PFTs that showed severe COPD Former smoker: quit 1 year ago; smoked up to 4 PPD a day CTA chest: as below empiric Abx with Rocephin and Zithromax Appreciate pulmonary input Needs follow up with Pulmonary as outpatient Left Lower Lobe Pneumonia: Small focal consolidation within the left lower lobe Treated empirically with Rocephin /Zithromax no evidence of sepsis sputum culture:-normal kun Needs repeat CT chest in 2-3 month as outpatient to ensure resolution. Elevated Troponin no evidence of ACS likely demand ischemia from hypoxia Denies chest pain ECHO : The left ventricle is normal in size. * The left ventricular wall motion is normal. * Ejection Fraction = 55-60%. * The right ventricular systolic function is normal. * No significant valvular pathology; no wall motion abnormality Lactic Acidosis: Likely secondary to Hypoxia/Alcohol use levels normalized after IVF no signs of sepsis - ETOH Abuse: patient drinks 2-3 mixed drinks and 6 beers / day Alcohol withdrawal protocol with gabapentin, PRN Ativan continue multivitamin, folic acid, and thiamine No signs of withdrawal Patient not interested in rehab but willing to quit on his own DVT Px: Lovenox SQ Code Status: Full Code Disposition: Plan to discharge home today social service consulted for discharge planning Advised to follow up with Pulmonology in 2 weeks PROCEDURES: CTA: 1. No evidence for pulmonary embolus with limitations as described above. 2. Small focal consolidation within the left lower lobe. This likely represents a pneumonia. Recommend 2-[address] follow-up to ensure resolution. 3. Severe emphysema. Total time spent on discharge = 33 minutes This includes examination of the patient, discharge planning, medication reconciliation, and communication with other providers. Discharge Instructions Discharge Instructions Date of Service Apr 26, 2017. Admission Reason for Admission: Copd Exacerbation Discharge Discharge Diagnosis / Problem: COPD EXACERBATION /ETOH ABUSE Discharge Goals Goal(s): Decrease discomfort, Improve function, Increase independence, Improve disease control, Diagnostic testing, Therapeutic intervention Activity Recommendations Activity Limitations: resume your previous activity Exercise/Sports Limitations: none . Instructions / Follow-Up Instructions / Follow-Up HOSPITAL FOLLOW UP : 05/03/2017 3:00 PM Abram Owens MD Internal Medicine [facility] FOLLOW UP WITH PULMONOLOGY DR ALONSO IN 2-3 WEEKS , PLEASE CALL OFFICE FOR APPOINTMENT IT IS VERY IMPORTANT FOR YOU TO QUIT DRINKING PERSISTED FOCAL CONSOLIDATION IN LEFT LOWER LOBE , RECOMMEND 2-[address] CHEST WITH CONTRAST FOLLOW UP TO ENSURE RESOLUTION Current Hospital Diet Patient's current hospital diet: AHA Diet (Heart Healthy) Discharge Diet Recommended Diet: AHA Diet (Heart Healthy) Pending Studies Studies pending at discharge: yes List of pending studies: PERSISTED FOCAL CONSOLIDATION IN LEFT LOWER LOBE , RECOMMEND 2-[address] CHEST WITH CONTRAST FOLLOW UP TO ENSURE RESOLUTION Laboratory Results Hemoglobin A1c Test 04/23/17 12:10 Range/Units Estimated Average Glucose 97 mg/dl Hemoglobin A1c 5.0 4.5-5.6 % Lipid Panel Test 04/24/17 05:58 Range/Units Triglycerides Level 50 0-150 mg/dl Cholesterol Level 102 0-200 mg/dl HDL Cholesterol 52 mg/dl Cholesterol/HDL Ratio 2.0 LDL Cholesterol, Calculated 40 mg/dl Medical Emergencies . Who to Call and When: Medical Emergencies: If at any time you feel your situation is an emergency, please call 911 immediately. . Non-Emergent Contact Non-Emergency issues call your: Primary Care Provider . . "Provider Documentation" section prepared by Mercedes Wei. . VTE Core Measure Inpt VTE Proph given/why not?: Unfractionated heparin SQ
[2017-04-28 09:49] VITALS: BP 148/87; PULSE 87; TEMP 36.6; O2SAT 93
== END 2017-04-28 13:30 | disposition home or self-care (01) | DRG 193 ==
LOC: C.EDC 11:46 → EDBD 11:46 → C.2E 14:33 → ENRESERV 15:38 → EDBEDREQ 04-25 22:11 → C.MED 04-25 22:43
PROVIDERS: ADMIT Hospitalist; ATTEND Internal Medicine
DX: J18.9 Pneumonia, unspecified organism (principal); J96.01 Acute respiratory failure with hypoxia; J44.1 Chronic obstructive pulmonary disease with (acute) exacerbation; E87.2 Acidosis; F10.10 Alcohol abuse, uncomplicated; Z87.891 Personal history of nicotine dependence

== ENCOUNTER 2017-05-17 13:12 | Emergency (ER) | payer OTHER ==
[~2017-05-17] VITALS: Ht 175.3 cm; Wt 60.2 kg
[~2017-05-17 13:12] MED LIST changes: +ALBU18002 PO; +AZIT-57 PO; +FLV1 PO; +THM100 PO; -VNTHFA/IN INH
[2017-05-17 13:22] VITALS: TEMP 36.4; Ht 175.3 cm; Wt 60.2 kg
--- NOTE | 2017-05-17 14:11 | EMERGENCY ROOM VISIT NOTE ---
History First contact with patient: 14:02 Chief Complaint: RESPIRATORY PROBLEMS Stated Complaint: COPD History of Present Illness The patient is a 76 year old male who presents to the Emergency Room with complaints of productive cough and dyspnea with exertion Patient has a PMH significant for COPD. Patient says that symptoms have progressively gotten worse since his last admission on APR 23 for a COPD exacerbation. The patient completed a course of prednisone and Azithromycin. He his on 2L NC . He denies recent fever, URI but does report a productive cough with green sputum. Patient denies hemoptysis. He also says that he had a recent episode of chest pain yesterday at rest. He describes it as a general left side dull pain, nonradiating and lasting about 20 minutes. Nothing made it better or worse. He denies leg swelling, palpitations or syncope. He does have some associated dizziness with exertion. Patient is UTD with flu and PNA vaccine. Patient is scheduled for Bronchoscopy with Dr. Gill on May 26. Patient is a former smoker, 4 PPD. Quit 14 months ago. Review of Systems see below Constitutional: No fever, No chills, No sweats Respiratory: + cough, + sputum, + dyspnea on exertion, No shortness of breath Cardiovascular: No chest pain, No orthopnea, No PND, No palpitations Abdomen: No pain, No nausea, No vomiting, No diarrhea Past Medical/Surgical History Medical Problems: (1) COPD (chronic obstructive pulmonary disease) (2) ETOH abuse Social History Smoking Status: Former Smoker Alcohol Use: occasionally Marital Status: Housing Status: lives with family Current/Historical Medications Scheduled Fluticasone Prop/Salmeterol (Advair Diskus 250/50 60 Dose), 1 PUFF INH BID Folic Acid (Folic Acid), 1 MG PO QAM Roflumilast (Daliresp), 1 TAB PO DAILY Thiamine HCl (Vitamin B-1), 100 MG PO QAM Scheduled PRN Albuterol Sulfate (Proair Respiclick), 2 PUFF PO Q4H PRN for SOB/Wheezing Physical Exam Vital Signs Date Time Temp Pulse Resp B/P (MAP) Pulse Ox O2 Delivery O2 Flow Rate FiO2 05/17/17 17:46 120 20 149/78 90 Room Air 05/17/17 17:39 112 20 149/78 93 Room Air 05/17/17 16:38 111 22 157/88 95 Room Air 05/17/17 15:20 61 16 94 Room Air 05/17/17 14:59 68 18 150/80 95 Room Air 05/17/17 14:38 73 05/17/17 14:22 95 Room Air 05/17/17 13:25 93 Room Air 05/17/17 13:22 36.4 84 20 135/78 93 Room Air Physical Exam see below General Appearance: WD/WN, no apparent distress Head: normocephalic, atraumatic Neck: supple, no adenopathy, thyroid normal Respiratory/Chest: chest non-tender, lungs clear, no respiratory distress, no accessory muscle use, + decreased breath sounds Cardiovascular: regular rate, rhythm, no edema, no gallop Abdomen / GI: normal bowel sounds, non tender, soft, no organomegaly Neurologic/Psych: alert, normal mood/affect, normal reflexes Medical Decision & Procedures ER Provider Diagnostic Interpretation: CHEST ONE VIEW PORTABLE CLINICAL HISTORY: Shortness of breath. COMPARISON STUDY: Chest radiograph and chest CT April 23, 2017. FINDINGS: There is no pneumothorax or pleural effusion. Severe emphysema is noted. There is no evidence of pulmonary edema. Cardiomediastinal silhouette is normal. Left basilar opacity has slightly increased since prior exam. IMPRESSION: 1. Persistent left basilar opacity, slightly increased since prior exam. This may reflect pneumonia or atelectasis. However, a neoplasm could appear similar. Therefore, a chest CT in one month to ensure resolution is recommended. 2. Severe emphysema. Laboratory Results 05/17/17 14:25 Red Blood Count 4.19, Mean Corpuscular Volume 99.8, Mean Corpuscular Hemoglobin 36.3, Mean Corpuscular Hemoglobin Concent 36.4, Mean Platelet Volume 9.4, Neutrophils (%) (Auto) 62.0, Lymphocytes (%) (Auto) 20.0, Monocytes (%) (Auto) 8.3, Eosinophils (%) (Auto) 9.0, Basophils (%) (Auto) 0.3, Neutrophils # (Auto) 4.49, Lymphocytes # (Auto) 1.45, Monocytes # (Auto) 0.60, Eosinophils # (Auto) 0.65, Basophils # (Auto) 0.02 05/17/17 14:25 Test 05/17/17 14:01 05/17/17 14:25 05/17/17 16:57 Creatine Kinase MB Ratio (0-3.0) White Blood Count 7.24 K/uL (4.8-10.8) Red Blood Count 4.19 M/uL (4.7-6.1) Hemoglobin 15.2 g/dL (14.0-18.0) Hematocrit 41.8 % (42-52) Mean Corpuscular Volume 99.8 fL (80-100) Mean Corpuscular Hemoglobin 36.3 pg (25-34) Mean Corpuscular Hemoglobin Concent 36.4 g/dl (32-36) Platelet Count 170 K/uL (130-400) Mean Platelet Volume 9.4 fL (7.4-10.4) Neutrophils (%) (Auto) 62.0 % Lymphocytes (%) (Auto) 20.0 % Monocytes (%) (Auto) 8.3 % Eosinophils (%) (Auto) 9.0 % Basophils (%) (Auto) 0.3 % Neutrophils # (Auto) 4.49 K/uL (1.4-6.5) Lymphocytes # (Auto) 1.45 K/uL (1.2-3.4) Monocytes # (Auto) 0.60 K/uL (0.11-0.59) Eosinophils # (Auto) 0.65 K/uL (0-0.5) Basophils # (Auto) 0.02 K/uL (0-0.2) RDW Standard Deviation 47.5 fL (36.4-46.3) RDW Coefficient of Variation 13.1 % (11.5-14.5) Immature Granulocyte % (Auto) 0.4 % Immature Granulocyte # (Auto) 0.03 K/uL (0.00-0.02) Anion Gap 8.0 mmol/L (3-11) Est Creatinine Clear Calc Drug Dose 64.9 ml/min Estimated GFR () 99.5 Estimated GFR (Non- 85.8 BUN/Creatinine Ratio 7.1 (10-20) Calcium Level 9.1 mg/dl (8.5-10.1) Total Bilirubin 0.7 mg/dl (0.2-1) Aspartate Amino Transf (AST/SGOT) 22 U/L (15-37) Alanine Aminotransferase (ALT/SGPT) 20 U/L (12-78) Alkaline Phosphatase 102 U/L (45-117) Creatine Kinase MB 1.4 ng/ml (0.5-3.6) Troponin I < 0.015 ng/ml (0-0.045) Pro-B-Type Natriuretic Peptide 153 pg/ml (0-900) Total Protein 7.6 gm/dl (6.4-8.2) Albumin 3.4 gm/dl (3.4-5.0) Globulin 4.2 gm/dl (2.5-4.0) Albumin/Globulin Ratio 0.8 (0.9-2) Procalcitonin < 0.05 ng/ml (0-0.5) Arterial Blood pH 7.45 (7.35-7.45) Arterial Blood Partial Pressure CO2 34 mmHg (35-46) Arterial Blood Partial Pressure O2 78 mm/Hg (80-95) Arterial Blood HCO3 23 mmol/L (19-24) Arterial Blood Oxygen Saturation 96.0 % (90-95) Arterial Blood Base Excess -0.2 mEq/L (-9-1.8) Arterial Blood Gas Delivery ROOM AIR Feliberto Test POS (POS) Medications Administered Medications (Trade) Dose Ordered Sig/Rigoberto Route Start Time Stop Time Status Last Admin Dose Admin Albuterol/ Ipratropium (Duoneb) 12 ml ONE ONCE INH 05/17/17 14:45 05/17/17 14:46 DC 05/17/17 15:19 12 ML ECG Rate (beats per minute): 71 Rhythm: normal sinus Findings: no ectopy ED Course 1330 History and physical performed 1345 Ordered the following test; CXR, Trop, CKMB, CMP, ECG. Ordered breathing treatment. 1500 Reaccessed the patient 1530 Reviewed all labs and CXR [address] the [address] Gill 1615 Ordered ABG's, procalcitonin Medical Decision 76 male PMH significant for COPD comes into the ED with productive cough and dyspnea with exertion. He also endorses some CP yesterday. Considering the following differential; COPD exacerbation, ACS, CHF,PE, PNA, pneumothorax Workup includes CXR, EKG, trop, CKMB, ABG's, procalcitonin Patient denies hemoptysis, LE tenderness, family history of clots or recent immobility. EKG showed NSR and troponin were negative. CXR showed a left lower lobe opacity. This finding has increased since previous hospitalization. His sodium was 134. Patient reports drinking 3-4 beers per day. Patient remained afebrile, O2 sats of 95%. Patient did drop below 90% with ambulatory pulse ox. Discussed the case with Dr. Gill who suggested ordering ABG's, procalcitonin. Procalcitonin was normal, ABG's showed low O2, but his CO2 was unremarkable. Following his recommendations; increasing the patient exertional O2 and starting the patient on Daliresp. Patient is following up this week with [facility] Pulmonology. In summary, during the patients ED course, he was evaluated for exertional dyspnea. The patient describes being a 4 PPD smoker up until 13 months ago. He also endorses having XIAO for several years prior to being diagnosed with COPD this past spring. He did not have signs of respiratory distress, pneumonia or hypercapnia. The patient does not appear to be having an acute exacerbation of COPD, but rather a gradual worsening of his disease. After consulting with Dr. Gill, it appears that the patient has not had complete evaluation of disease. He recommends Daliresp, increasing to 4L NC with exertion and close follow up with Pulmonology. Impression Primary Impression: COPD (chronic obstructive pulmonary disease) Departure Information Dispostion Home / Self-Care Condition FAIR Prescriptions Roflumilast (DALIRESP) 500 Mcg Tab 1 TAB PO DAILY for 30 Days, #30 TAB 3 Refills Prov: Luis Antonio Montero M.D. 05/17/17 Referrals Abram Owens M.D. (PCP) Patient Instructions [facility] Additional Instructions Mr. Abreu, You came into today with shortness of breathe with walking. After running some test, it does not appear that your symptoms are due to a acute infection like pneumonia. It does look like you may be having a exacerbation of your COPD. You recently just finished Azithromycin and prednisone. We are starting you on a new medication called Daliresp. This is a medication that can help with COPD. In addition, I spoke with Dr. Gill regarding your situation. He suggest that you follow up sooner than May 26 and be evaluated by the chief media officer ( lung doctor). Continue to use your inhalers and nebulizers as directed. Additionally, we evaluated your O2 levels with walking. You need to use 4L of O2 when with activity. We also need you to follow up with Pulmonology regarding an X-ray finding in your left lung. In summary 1. Use 4 Liters of O2 while ambulating 2. Take Daliresp, once daily 3. Dr. Gill's office will be calling you for an appointment 4. Discuss with the doctor regarding the X ray finding
[2017-05-17] MEDS ORDERED: ALBUT/IPRATROP 3MG/0.5MG NEB 3 ML VIAL INH ONE (14:45)
[2017-05-17 14:47] LABS: BASO % 0.3 %; BASO ABS # 0.02 K/uL (0-0.2); COMPLETE YES; HEMATOCRIT 41.8 % (42-52); IG% 0.4 %; LYMPH ABS # 1.45 K/uL (1.2-3.4); MEAN CELL VOLUME 99.8 fL (80-100); MEAN CORPUSCULAR HEMOGLOBIN 36.3 pg (25-34); MEAN CORPUSCULAR HGB CONC 36.4 g/dl (32-36); MEAN PLATELET VOLUME 9.4 fL (7.4-10.4); MONO % 8.3 %; PLATELET COUNT 170 K/uL (130-400); RED BLOOD COUNT 4.19 M/uL (4.7-6.1); WHITE BLOOD COUNT 7.24 K/uL (4.8-10.8)
[2017-05-17 15:07] LABS: ALT/SGPT 20 U/L (12-78); BLOOD UREA NITROGEN 6 mg/dl (7-18); BUN/CREATININE RATIO 7.1 (10-20); CALCIUM 9.1 mg/dl (8.5-10.1); CARBON DIOXIDE 26 mmol/L (21-32); CHLORIDE 100 mmol/L (98-107); CREATININE 0.85 mg/dl (0.60-1.40); GLUCOSE 78 mg/dl (70-99); POTASSIUM 3.6 mmol/L (3.5-5.1); SODIUM 134 mmol/L (136-145)
--- NOTE | 2017-05-17 15:07 | DIAGNOSTIC IMAGING REPORT ---
CHEST ONE VIEW PORTABLE CLINICAL HISTORY: Shortness of breath. COMPARISON STUDY: Chest radiograph and chest CT April 23, 2017. FINDINGS: There is no pneumothorax or pleural effusion. Severe emphysema is noted. There is no evidence of pulmonary edema. Cardiomediastinal silhouette is normal. Left basilar opacity has slightly increased since prior exam. IMPRESSION: 1. Persistent left basilar opacity, slightly increased since prior exam. This may reflect pneumonia or atelectasis. However, a neoplasm could appear similar. Therefore, a chest CT in one month to ensure resolution is recommended. 2. Severe emphysema. Electronically signed by: Charles Littlejohn M.D. 05/17/2017 3:05 PM Dictated Date/Time: 05/17/2017 3:01 PM
[2017-05-17 15:12] LABS: ALB/GLOB RATIO 0.8 (0.9-2); ALKALINE PHOSPHATASE 102 U/L (45-117); AST/SGOT 22 U/L (15-37)
[2017-05-17 15:20] VITALS: PULSE 61; O2SAT 94
--- NOTE | 2017-05-17 16:40 | EMERGENCY ROOM VISIT NOTE ---
ED Visit Note First contact with patient: 13:40 Resident Physician Supervision Note: I interviewed and examined the patient. Discussed with Dr. Montero and agree with findings and plan as documented in the note. Documented By: Lazaro Beth Problem List Medical Problems: (1) COPD (chronic obstructive pulmonary disease) Status: Chronic (2) ETOH abuse Status: Chronic Current/Historical Medications Scheduled Fluticasone Prop/Salmeterol (Advair Diskus 250/50 60 Dose), 1 PUFF INH BID Folic Acid (Folic Acid), 1 MG PO QAM Thiamine HCl (Vitamin B-1), 100 MG PO QAM Scheduled PRN Albuterol Sulfate (Proair Respiclick), 2 PUFF PO Q4H PRN for SOB/Wheezing Allergies Coded Allergies: No Known Allergies (Unverified , 05/17/17) Vital Signs Date Time Temp Pulse Resp B/P (MAP) Pulse Ox O2 Delivery O2 Flow Rate FiO2 05/17/17 15:20 61 16 94 Room Air 05/17/17 14:59 68 18 150/80 95 Room Air 05/17/17 14:38 73 05/17/17 14:22 95 Room Air 05/17/17 13:25 93 Room Air 05/17/17 13:22 36.4 84 20 135/78 93 Room Air Laboratory Results 05/17/17 14:25 Red Blood Count 4.19, Mean Corpuscular Volume 99.8, Mean Corpuscular Hemoglobin 36.3, Mean Corpuscular Hemoglobin Concent 36.4, Mean Platelet Volume 9.4, Neutrophils (%) (Auto) 62.0, Lymphocytes (%) (Auto) 20.0, Monocytes (%) (Auto) 8.3, Eosinophils (%) (Auto) 9.0, Basophils (%) (Auto) 0.3, Neutrophils # (Auto) 4.49, Lymphocytes # (Auto) 1.45, Monocytes # (Auto) 0.60, Eosinophils # (Auto) 0.65, Basophils # (Auto) 0.02 05/17/17 14:25 Test 05/17/17 14:01 05/17/17 14:25 05/17/17 16:21 Creatine Kinase MB Ratio (0-3.0) White Blood Count 7.24 K/uL (4.8-10.8) Red Blood Count 4.19 M/uL (4.7-6.1) Hemoglobin 15.2 g/dL (14.0-18.0) Hematocrit 41.8 % (42-52) Mean Corpuscular Volume 99.8 fL (80-100) Mean Corpuscular Hemoglobin 36.3 pg (25-34) Mean Corpuscular Hemoglobin Concent 36.4 g/dl (32-36) Platelet Count 170 K/uL (130-400) Mean Platelet Volume 9.4 fL (7.4-10.4) Neutrophils (%) (Auto) 62.0 % Lymphocytes (%) (Auto) 20.0 % Monocytes (%) (Auto) 8.3 % Eosinophils (%) (Auto) 9.0 % Basophils (%) (Auto) 0.3 % Neutrophils # (Auto) 4.49 K/uL (1.4-6.5) Lymphocytes # (Auto) 1.45 K/uL (1.2-3.4) Monocytes # (Auto) 0.60 K/uL (0.11-0.59) Eosinophils # (Auto) 0.65 K/uL (0-0.5) Basophils # (Auto) 0.02 K/uL (0-0.2) RDW Standard Deviation 47.5 fL (36.4-46.3) RDW Coefficient of Variation 13.1 % (11.5-14.5) Immature Granulocyte % (Auto) 0.4 % Immature Granulocyte # (Auto) 0.03 K/uL (0.00-0.02) Anion Gap 8.0 mmol/L (3-11) Est Creatinine Clear Calc Drug Dose 64.9 ml/min Estimated GFR () 99.5 Estimated GFR (Non- 85.8 BUN/Creatinine Ratio 7.1 (10-20) Calcium Level 9.1 mg/dl (8.5-10.1) Total Bilirubin 0.7 mg/dl (0.2-1) Aspartate Amino Transf (AST/SGOT) 22 U/L (15-37) Alanine Aminotransferase (ALT/SGPT) 20 U/L (12-78) Alkaline Phosphatase 102 U/L (45-117) Creatine Kinase MB 1.4 ng/ml (0.5-3.6) Troponin I < 0.015 ng/ml (0-0.045) Pro-B-Type Natriuretic Peptide 153 pg/ml (0-900) Total Protein 7.6 gm/dl (6.4-8.2) Albumin 3.4 gm/dl (3.4-5.0) Globulin 4.2 gm/dl (2.5-4.0) Albumin/Globulin Ratio 0.8 (0.9-2) Medications Administered Medications (Trade) Dose Ordered Sig/Rigoberto Route Start Time Stop Time Status Last Admin Dose Admin Albuterol/ Ipratropium (Duoneb) 12 ml ONE ONCE INH 05/17/17 14:45 05/17/17 14:46 DC 05/17/17 15:19 12 ML Departure Information Referrals Abram Owens M.D. (PCP) Patient Instructions My [facility]
[2017-05-17 17:13] LABS: ALLEN TEST POS (POS); ARTERIAL BLOOD GAS BASE EXCESS -0.2 mEq/L (-9-1.8); ARTERIAL BLOOD GAS HCO3 23 mmol/L (19-24); ARTERIAL BLOOD GAS PO2 78 mm/Hg (80-95); ARTERIAL BLOOD GAS pH 7.45 (7.35-7.45); O2 ADMINISTRATION ROOM AIR
[2017-05-17 17:46] VITALS: BP 149/78; PULSE 120; O2SAT 90
[2017-05-17] MEDS ORDERED: ROFL1TAB5 PO (18:13)
== END 2017-05-17 18:29 | disposition home or self-care (01) ==
LOC: C.EDB 13:13
DX: J44.9 Chronic obstructive pulmonary disease, unspecified (principal); Z87.891 Personal history of nicotine dependence

== ENCOUNTER 2017-05-20 06:13 | Inpatient (IN) | payer OTHER ==
[~2017-05-20] VITALS: Ht 170.2 cm; Wt 58.9 kg
[2017-05-20] VITALS (11 sets, daily range): BP systolic 122–151; BP diastolic 71–81; PULSE 99–115; TEMP 36.4–36.7; O2SAT 94–99; Ht 170.2 cm; Wt 58.9 kg
[~2017-05-20 06:13] MED LIST changes: -AZIT-57 PO; -PRED20TA2 PO; +ROFL1TAB5 PO
[2017-05-20] MEDS ORDERED: CEFEPIME IV 2,000 MG in DEXTROSE 5% 100ML 100 ML IV STA (06:37)
[2017-05-20] MEDS ORDERED: METHYLPREDNISOLONE 125 MG VIAL IV STA (06:37)
[2017-05-20] MEDS ORDERED: ALBUT/IPRATROP 3MG/0.5MG NEB 3 ML VIAL INH STA (06:37)
[2017-05-20] MEDS ORDERED: FOLI1TAB8 PO (06:43)
[2017-05-20 06:44] LABS: BASO % 0.6 %; BASO ABS # 0.04 K/uL (0-0.2); COMPLETE YES; EOS % 10.1 %; IG% 0.3 %; LYMPH % 20.2 %; LYMPH ABS # 1.44 K/uL (1.2-3.4); MEAN CELL VOLUME 101.2 fL (80-100); MEAN CORPUSCULAR HEMOGLOBIN 35.6 pg (25-34); MEAN CORPUSCULAR HGB CONC 35.1 g/dl (32-36); MEAN PLATELET VOLUME 9.3 fL (7.4-10.4); MONO % 6.7 %; NEUT % 62.1 %; PLATELET COUNT 165 K/uL (130-400); RED BLOOD COUNT 4.05 M/uL (4.7-6.1); WHITE BLOOD COUNT 7.12 K/uL (4.8-10.8)
[2017-05-20] MEDS ORDERED: THIA100T11 PO (06:44)
--- NOTE | 2017-05-20 06:49 | EMERGENCY ROOM VISIT NOTE ---
History Report prepared by Fab: Tammy Monson Under the Supervision of: Dr. Drew Tellez M.D. First contact with patient: 06:33 Chief Complaint: RESPIRATORY DISTRESS Stated Complaint: SHORTNESS OF BREATH Nursing Triage Summary: Hx COPD. Possibly had pneumonia a month ago, unsure. Has felt increasing dyspnea for past 1-2 months. [place] short of breath going to bed last night, awoke up 0100 with severe dyspnea and took rescue inhaler x8 puffs approximately with some relief but not much. Has productive cough with green exudate. Associated chest pressure tonight. History of Present Illness The patient is a 76 year old male who presents to the Emergency Room with complaints of persistent respiratory problems that began prior to arrival. He currently rates his discomfort as a 6/10 in severity. The patient reports that he has a history of COPD and was recently evaluated in the emergency department three days ago for similar symptoms. He states that since his recent emergency department visit, he has not been able to walk very far without becoming short of breath or developing chest pain. The patient states that he has had a productive cough, noting he is bringing up green sputum. He states that this morning around 0100 he woke up with shortness of breath. The patient states that he used 8 puffs of his rescue inhaler, noting that seemed to help his symptoms. He states that he uses supplemental nasal cannula oxygen when needed at home, but nursing staff reports that the patient is supposed to wear 2 liters all the time and 4 liters with exertion. The patient denies being on any current antibiotics or steroids. He denies any fever or chills. The patient states that he was given Ativan, Solu-Medrol, and a breathing treatment en-route to the emergency department. Source of History: patient, nursing staff Onset: prior to arrival Position: other (global) Symptom Intensity: 6/10 Quality: other (respiratory problems) Timing: other (persistent) Associated Symptoms: + cough, + chest pain, No fevers, No chills Review of Systems See HPI for pertinent positives & negatives. A total of 10 systems reviewed and were otherwise negative. Past Medical & Surgical Medical Problems: (1) COPD (chronic obstructive pulmonary disease) (2) ETOH abuse Family History Patient reports no known family medical history. Social History Smoking Status: Former Smoker Alcohol Use: occasionally Marital Status: Housing Status: lives with family Current/Historical Medications Scheduled Fluticasone Prop/Salmeterol (Advair Diskus 250/50 60 Dose), 1 PUFF INH BID Folic Acid (Folvite), 1 MG PO DAILY Roflumilast (Daliresp), 1 TAB PO DAILY Thiamine Hcl (Vitamin B-1), 100 MG PO DAILY Scheduled PRN Albuterol Sulfate (Proair Respiclick), 2 PUFF PO Q4H PRN for SOB/Wheezing Allergies Coded Allergies: No Known Allergies (Unverified , 05/17/17) Physical Exam Vital Signs Date Time Temp Pulse Resp B/P (MAP) Pulse Ox O2 Delivery O2 Flow Rate FiO2 05/20/17 06:47 111 26 97 Nasal Cannula 3.0 05/20/17 06:41 Nasal Cannula 2.0 05/20/17 06:25 90 Room Air 05/20/17 06:18 36.7 111 24 128/103 90 Room Air Physical Exam GENERAL: Patient is in mild distress. HEENT: No acute trauma, normocephalic atraumatic, mucous membranes moist, no nasal congestion, no scleral icterus. NECK: No stridor, no adenopathy, no meningismus, trachea is midline. LUNG: Decreased breath sounds bilaterally, with wheezing bilaterally, increased respiratory rate, no rhonchi heard. Speaks in shorter sentences. HEART: Tachycardic with a regular rhythm, no murmur. ABDOMEN: Soft, nontender, bowel sounds positive, no hernias, no peritonitis. EXTREMITIES: No cyanosis or edema, full range of motion of all the joints without pain or difficulty, no signs for acute trauma. NEUROLOGIC: Oriented x 3, no acute motor or sensory deficits, no focal weakness. SKIN: No rash, no jaundice, no diaphoresis. Medical Decision & Procedures ER Provider Diagnostic Interpretation: X-ray results as stated below per interpretation by me and the radiologist: CHEST ONE VIEW PORTABLE CLINICAL HISTORY: 76 years-old Male presenting with EVALUATE RESPIRATORY DISTRESS.DYSPNEA. TECHNIQUE: Portable upright AP view of the chest was obtained. COMPARISON: 05/17/2017. FINDINGS: Atherosclerosis of aortic arch. Cardiac silhouette normal in size. Mild hyperinflation and heterogeneity of lung parenchyma. Persistent reticular and hazy opacity at the left lung base. Ill-defined opacity at the right paramediastinal lung base may relate to a prominent pericardial fat-pad. Degenerative changes of the thoracic spine. Upper abdomen normal. IMPRESSION: 1. Persistent left basilar opacity. An infectious etiology cannot be excluded, although this was present on prior CT from 04/23/2017. This should be followed to resolution to exclude the possibility of a neoplasm. 2. Emphysema. 3. No new focal infiltrate. Electronically signed by: Rosalino Norwood M.D. 05/20/2017 6:52 AM Dictated Date/Time: 05/20/2017 6:50 AM Laboratory Results 05/20/17 06:22 Red Blood Count 4.05, Mean Corpuscular Volume 101.2, Mean Corpuscular Hemoglobin 35.6, Mean Corpuscular Hemoglobin Concent 35.1, Mean Platelet Volume 9.3, Neutrophils (%) (Auto) 62.1, Lymphocytes (%) (Auto) 20.2, Monocytes (%) ( Auto) 6.7, Eosinophils (%) (Auto) 10.1, Basophils (%) (Auto) 0.6, Neutrophils # (Auto) 4.42, Lymphocytes # (Auto) 1.44, Monocytes # (Auto) 0.48, Eosinophils # ( Auto) 0.72, Basophils # (Auto) 0.04 05/20/17 06:22 Test 05/20/17 06:22 05/20/17 06:28 05/20/17 06:58 White Blood Count 7.12 K/uL (4.8-10.8) Red Blood Count 4.05 M/uL (4.7-6.1) Hemoglobin 14.4 g/dL (14.0-18.0) Hematocrit 41.0 % (42-52) Mean Corpuscular Volume 101.2 fL (80-100) Mean Corpuscular Hemoglobin 35.6 pg (25-34) Mean Corpuscular Hemoglobin Concent 35.1 g/dl (32-36) Platelet Count 165 K/uL (130-400) Mean Platelet Volume 9.3 fL (7.4-10.4) Neutrophils (%) (Auto) 62.1 % Lymphocytes (%) (Auto) 20.2 % Monocytes (%) (Auto) 6.7 % Eosinophils (%) (Auto) 10.1 % Basophils (%) (Auto) 0.6 % Neutrophils # (Auto) 4.42 K/uL (1.4-6.5) Lymphocytes # (Auto) 1.44 K/uL (1.2-3.4) Monocytes # (Auto) 0.48 K/uL (0.11-0.59) Eosinophils # (Auto) 0.72 K/uL (0-0.5) Basophils # (Auto) 0.04 K/uL (0-0.2) RDW Standard Deviation 48.6 fL (36.4-46.3) RDW Coefficient of Variation 13.2 % (11.5-14.5) Immature Granulocyte % (Auto) 0.3 % Immature Granulocyte # (Auto) 0.02 K/uL (0.00-0.02) Prothrombin Time 10.3 SECONDS (9.0-12.0) Prothromb Time International Ratio 1.0 (0.9-1.1) Activated Partial Thromboplast Time 27.1 SECONDS (21.0-31.0) Partial Thromboplastin Ratio 1.0 Anion Gap 9.0 mmol/L (3-11) Est Creatinine Clear Calc Drug Dose 73.3 ml/min Estimated GFR () 102.5 Estimated GFR (Non- 88.5 BUN/Creatinine Ratio 4.3 (10-20) Calcium Level 8.8 mg/dl (8.5-10.1) Magnesium Level 1.8 mg/dl (1.8-2.4) Total Bilirubin 0.5 mg/dl (0.2-1) Aspartate Amino Transf (AST/SGOT) 25 U/L (15-37) Alanine Aminotransferase (ALT/SGPT) 20 U/L (12-78) Alkaline Phosphatase 91 U/L (45-117) Troponin I 0.053 ng/ml (0-0.045) Total Protein 7.4 gm/dl (6.4-8.2) Albumin 3.4 gm/dl (3.4-5.0) Globulin 4.0 gm/dl (2.5-4.0) Albumin/Globulin Ratio 0.8 (0.9-2) Bedside Lactic Acid Venous 1.92 mmol/L (0.90-1.70) Arterial Blood pH 7.37 (7.35-7.45) Arterial Blood Partial Pressure CO2 42 mmHg (35-46) Arterial Blood Partial Pressure O2 165 mm/Hg (80-95) Arterial Blood HCO3 23 mmol/L (19-24) Arterial Blood Oxygen Saturation 99.3 % (90-95) Arterial Blood Base Excess -1.9 mEq/L (-9-1.8) Arterial Blood Gas Delivery 7L Feliberto Test POS (POS) Laboratory results reviewed by me. Medications Administered Medications (Trade) Dose Ordered Sig/Rigoberto Route Start Time Stop Time Status Last Admin Dose Admin Albuterol/ Ipratropium (Duoneb) 12 ml NOW STAT INH 05/20/17 06:37 05/20/17 06:39 DC 05/20/17 06:47 12 ML ECG Indication: SOB/dyspnea Rate (beats per minute): 107 Rhythm: sinus tachycardia Findings: no acute ischemic change, no ectopy ED Course 0635: The patient was evaluated in room B9. A complete history and physical exam was performed. 0637: Ordered Cefepime HCl 2000 mg/Dextrose 112.5 ml @ 200 mls/hr IV, DuoNeb 12 ml INH. 0713: I discussed the patients case with Rm Kimball. Rm will evaluate the patient for further treatment. Medical Decision The patient is a 76 year old male who presents to the ED with complaints of shortness of breath. Differential diagnoses considered include pneumonia, bronchitis, exacerbation of COPD, anemia, electrolyte imbalance, CHF, pneumothorax, cardiac ischemia. There is no leukocytosis or concerning anemia. No significant electrolyte abnormality, kidney failure or hepatitis. There is no coagulopathy. Lactic acid level is not significantly elevated making sepsis less likely. EKG shows sinus tachycardia, no acute ischemia. Cardiac enzyme testing times one does show a mild troponin elevation, this could be consistent with mismatch, possibly cardiac injury. Chest film shows possible congestion at the bases, especially on the left-pneumonia was questioned. Blood cultures are pending. ABG does not show acidosis, no significant hypoxia or CO2 retention. The patient presents dyspneic, he was aggressively managed in our ED. He received a 1 hour DuoNeb. He was given IV cefepime as antibiotic coverage. As he had already received Solu-Medrol, no additional steroid was administered. The patient has failed outpatient management. He was just in our ED and had to return just a few days later feeling worse. He may have pneumonia or acute bronchitis. He definitely has a flare of his COPD. I did speak with case management and with the patient. The on-call hospitalist was consulted. Medication Reconcilliation Current Medication List: was personally reviewed by me Consults Time Called: [phone] Consulting Physician: Rm Kimball Returned Call: [phone] I discussed the patients case with Rm Kimball. Rm will evaluate the patient for further treatment. Impression Primary Impression: Pneumonia Additional Impressions: Respiratory distress COPD exacerbation Failure of outpatient treatment Scribe Attestation The scribe's documentation has been prepared under my direction and personally reviewed by me in its entirety. I confirm that the note above accurately reflects all work, treatment, procedures, and medical decision making performed by me. Departure Information Dispostion Being Evaluated By Hospitalist Referrals Abram Owens M.D. (PCP) Problem Qualifiers
--- NOTE | 2017-05-20 06:53 | DIAGNOSTIC IMAGING REPORT ---
CHEST ONE VIEW PORTABLE CLINICAL HISTORY: 76 years-old Male presenting with EVALUATE RESPIRATORY DISTRESS.DYSPNEA. TECHNIQUE: Portable upright AP view of the chest was obtained. COMPARISON: 05/17/2017. FINDINGS: Atherosclerosis of aortic arch. Cardiac silhouette normal in size. Mild hyperinflation and heterogeneity of lung parenchyma. Persistent reticular and hazy opacity at the left lung base. Ill-defined opacity at the right paramediastinal lung base may relate to a prominent pericardial fat-pad. Degenerative changes of the thoracic spine. Upper abdomen normal. IMPRESSION: 1. Persistent left basilar opacity. An infectious etiology cannot be excluded, although this was present on prior CT from 04/23/2017. This should be followed to resolution to exclude the possibility of a neoplasm. 2. Emphysema. 3. No new focal infiltrate. Electronically signed by: Rosalino Norwood M.D. 05/20/2017 6:52 AM Dictated Date/Time: 05/20/2017 6:50 AM
[2017-05-20 07:02] LABS: PROTHROMBIN TIME (PATIENT) 10.3 SECONDS (9.0-12.0)
[2017-05-20 07:03] LABS: BUN/CREATININE RATIO 4.3 (10-20); CALCIUM 8.8 mg/dl (8.5-10.1); CREATININE 0.79 mg/dl (0.60-1.40); MAGNESIUM 1.8 mg/dl (1.8-2.4); POTASSIUM 3.9 mmol/L (3.5-5.1)
[2017-05-20] MEDS ORDERED: CEFEPIME IV 2,000 MG in SYRINGE 7.5 ML IV STA (07:07)
[2017-05-20 07:12] LABS: ALB/GLOB RATIO 0.8 (0.9-2)
[2017-05-20 07:14] LABS: ARTERIAL BLD GAS O2 SATURATION 99.3 % (90-95); ARTERIAL BLOOD GAS BASE EXCESS -1.9 mEq/L (-9-1.8); ARTERIAL BLOOD GAS HCO3 23 mmol/L (19-24); ARTERIAL BLOOD GAS PO2 165 mm/Hg (80-95); ARTERIAL BLOOD GAS pH 7.37 (7.35-7.45)
[2017-05-20 07:15] LABS: ALLEN TEST POS (POS); O2 ADMINISTRATION 7L
[2017-05-20] MEDS ORDERED: ONDANSETRON INJ 2 MG/ML 2 ML VIAL IV PRN (08:30)
[2017-05-20] MEDS ORDERED: OPTIRAY 320 IV PRN (08:30)
[2017-05-20] MEDS ORDERED: NITROGLYCERIN 0.4 MG SL PER TAB CHARGE SL PRN (08:30)
[2017-05-20] MEDS ORDERED: ALUMINUM/MAGNESIUM/SIMETH (MAALOX MAX) 30 ML UDC PO PRN (08:30)
[2017-05-20] MEDS ORDERED: ACETAMINOPHEN 325 MG TAB PO PRN (08:30)
[2017-05-20] MEDS ORDERED: MAGNESIUM HYDROXIDE SUSP 30 ML UDC PO PRN (08:30)
[2017-05-20] MEDS ORDERED: POLYETHYLENE (MIRALAX) 17 GM PACK PO PRN (08:30)
--- NOTE | 2017-05-20 09:35 | DIAGNOSTIC IMAGING REPORT ---
(CHEST FOR PE) ANGIO WITH CLINICAL HISTORY: 76 years-old Male presenting with ^Chest Pain, Eval for PE. TECHNIQUE: Multidetector CT angiography of the chest was performed after administration of intravenous contrast. 3-D volumetric and/or maximum intensity projection (MIP) images were subsequently reconstructed for review. IV contrast: 81 mL of Optiray 320. A dose lowering technique was used consistent with the principles of ALARA (as low as reasonably achievable). COMPARISON: 04/23/2017. CT DOSE (mGy.cm): The estimated cumulative dose is 222.42 mGy.cm. FINDINGS: Manager Bridge topogram: Unremarkable. Pulmonary vasculature: The study is adequate for assessment of the pulmonary vascular tree. No filling defect within the pulmonary arteries to suggest embolus. Main pulmonary artery is not enlarged though the right and left pulmonary arteries are mildly enlarged. No flattening of the interventricular septum. No intracardiac intracardiac filling defect. No reflux of contrast into the hepatic veins. Remaining chest: On soft tissue windows, normal thyroid and thoracic inlet. Calcified mediastinal and right hilar lymph nodes suggest prior granulomatous infection or granulomatous disease. Atherosclerosis of the aorta. Normal heart size. Coronary artery calcification. No pericardial or pleural effusion. Parenchymal calcifications in the spleen could suggest prior granulomatous infection. On lung windows, severe emphysema with bronchial wall thickening. Subsegmental bronchial occlusion/debris in the lateral basal segment of the left lower lobe as seen on prior exam in the region of the focal nodular consolidation. This consolidation is stable to slightly decreased in size from prior with extension to the overlying pleura. Although this region is irregular and difficult to measure, maximal diameter measures 3 cm (series 4 image 58), previously 3.8 cm. No new focal consolidation. Bandlike opacity in the left upper lobe likely atelectasis or scarring (series 4 image 224). Scattered areas of bronchial debris noted elsewhere in the right lung. On bone windows, degenerative changes of the thoracic spine. IMPRESSION: 1. No evidence of pulmonary embolus. 2. Stable slight interval decrease size of the focal nodular consolidation in the lateral basal segment of the left lower lobe. This remains most concerning for focal infectious or inflammatory etiology but should be followed radiographically to resolution would neoplasm especially given the underlying emphysema. 3. No new consolidation. 4. Severe emphysema with multifocal bronchial mucus plugging or debris. 5. Evidence of prior granulomatous infection. Electronically signed by: Rosalino Norwood M.D. 05/20/2017 9:34 AM Dictated Date/Time: 05/20/2017 9:26 AM
[2017-05-20] MEDS ORDERED: GABAPENTIN 600 MG TAB PO SCH (09:45)
[2017-05-20] MEDS ORDERED: LORAZEPAM 2 MG/ML 1 ML VIAL IV PRN (09:45)
[2017-05-20] MEDS ORDERED: SODIUM CHLORIDE 0.9% 1000ML 1,000 ML IV SCH (09:45)
[2017-05-20 09:54] LABS: URINE APPEARANCE CLEAR (CLEAR); URINE BILIRUBIN NEG (NEG); URINE COLOR YELLOW; URINE NITRITE NEG (NEG); URINE SPECIFIC GRAVITY 1.031 (1.000-1.030); UROBILINOGEN NEG (NEG); ZZUR CULT IF INDIC CLEAN CATCH NO
[2017-05-20 09:55] LABS: MANUAL MICROSCOPIC REQUIRED? NO; REVIEW REQ? NO
[2017-05-20] MEDS ORDERED: ALBINS INH (09:59)
[2017-05-20] MEDS ORDERED: GABAPENTIN 1200MG LOADING DOSE PO ONE (10:00)
[2017-05-20] MEDS: FLUTICASONE/SALMETEROL 250/50 (ADVAIR) 14 PUFF/1 INHALER INH SCH ×2 (10:02→22:24)
[2017-05-20] MEDS: THIAMINE HCL 100 MG TAB PO SCH (10:04)
[2017-05-20] MEDS: METHYLPREDNISOLONE IV 60 MG in SYRINGE 0 ML IV SCH ×2 (10:04→19:00)
[2017-05-20] MEDS: AZITHROMYCIN 250 MG TAB PO SCH (10:04)
[2017-05-20] MEDS: ROFLUMILAST 500 MCG TAB PO SCH (10:05)
[2017-05-20] MEDS: CEFTRIAXONE SOD INJ 1 GM in DEXTROSE 5% ADD-VANTAGE 50ML 50 ML IV SCH (10:05)
[2017-05-20 10:10] LABS: BENZODIAZEPINE, URINE NEG (NEG); COCAINE,URINE NEG (NEG); PHENCYCLIDINE, URINE NEG (NEG)
--- NOTE | 2017-05-20 10:50 | History and Physical ---
History & Physical Date & Time of Service: May 20, 2017 at 09:16 Chief Complaint: Shortness Of Breath Primary Care Physician: Abram Owens M.D. History of Present Illness Source: patient Pt is 76 y/o M with PMH COPD, ETOH abuse presented to ER with c/o increasing SOB. Pt states the past week with increased SOB, SOB with getting dressed and can't walk a couple of steps in his home with SOB. Describes chest tightness with this SOB. Pt on 2L O2 NC and 4L with exertion. He states past several days tried increasing O2 to 4L continuously without relief. Last night he used his ProAir 10 times and used his albuterol nebulizer 3 times without relief of SOB. Reports cough green color sputum past 5 days. Pt Hx smoker 4ppd, quitting 1 year ago. He reports drinking 5 beers a night and last drank 5 beers last evening. Denies fever/chills, diaphoresis, N/V/D/C, GIMENEZ, dizziness, syncope, vision changes, neck pain, CP, orthopnea, palpitations, hemoptysis, sore throat , choking, rhinorrhea, abdominal pain, extremity weakness, extremity edema, rashes, urinary symptoms. Pt was seen in ER 05/17/17 and given neb d/c home. Pt hospitalized 04/23/17- for COPD exacerbation and pneumonia. Today in ER P: 111-128, R: 24-30, 94% on 2L O2, no leukocytosis. Troponin: 0.053. CXR: Persistent left basilar opacity. An infectious etiology cannot be excluded, although this was present on prior CT from 04/23/2017. 2. Emphysema. 3. No new focal infiltrate. Pt given cefepime, DuoNeb, solumedrol. He reports feeling like his breathing is better after the breathing treatment. Past Medical/Surgical History Medical Problems: (1) COPD (chronic obstructive pulmonary disease) Status: Chronic (2) ETOH abuse Status: Chronic Family History Pt reports unsure of FH Social History Smoking Status: Former Smoker Smokeless Tobacco Use: No Alcohol Use: 5 beers a night Drug Use: none Marital Status: Housing status: lives with significant other Immunizations History of Influenza Vaccine: Yes Influenza Vaccine Date: Mar 12, 2017 Multi-Drug Resistant Organisms History of MDRO: No Allergies Coded Allergies: No Known Allergies (Unverified , 05/17/17) Home Medications Scheduled Albuterol Sulf (Albuterol Sulfate), 1 VIAL INH Q4 Fluticasone Prop/Salmeterol (Advair Diskus 250/50 60 Dose), 1 PUFF INH BID Folic Acid (Folvite), 1 MG PO DAILY Roflumilast (Daliresp), 1 TAB PO DAILY Thiamine Hcl (Vitamin B-1), 100 MG PO DAILY Scheduled PRN Albuterol Sulfate (Proair Respiclick), 2 PUFF PO Q4H PRN for SOB/Wheezing Review of Systems Constitutional: No fever, No chills, No sweats, No weight loss Eyes: No eye pain, No redness, No discharge ENT: No unusual epistaxis, No nasal symptoms, No sore throat Respiratory: + problem reported (see HPI) Cardiovascular: No orthopnea, No PND, No edema Abdomen: No pain, No nausea, No vomiting, No diarrhea, No constipation, No GI bleeding Musculoskeletal: No joint pain, No muscle pain, No swelling, No calf pain Genitourinary - Male: No hematuria, No dysuria, No urinary frequency, No urinary urgency Neurologic: No weakness, No numbness/tingling Psychiatric: No depression symptoms, No anxiety Integumentary: No rash, No itch Physical Exam Vital Signs Date Time Temp Pulse Resp B/P (MAP) Pulse Ox O2 Delivery O2 Flow Rate FiO2 05/20/17 09:05 116 24 116/81 97 05/20/17 08:30 111 29 120/71 98 Nasal Cannula 2.0 05/20/17 08:00 94 Nasal Cannula 2.0 05/20/17 07:54 128 30 110/92 94 Nasal Cannula 2.0 05/20/17 07:30 111 24 137/83 99 Nasal Cannula 2.0 05/20/17 07:00 105 38 148/91 99 Nasal Cannula 2.0 05/20/17 06:47 111 26 97 Nasal Cannula 3.0 05/20/17 06:41 Nasal Cannula 2.0 05/20/17 06:25 90 Room Air 05/20/17 06:18 36.7 111 24 128/103 90 Room Air General Appearance: + thin, + pertinent finding (chronic ill appearing, no apparent distress at this time, sitting up in bed) Head: normocephalic, atraumatic Eyes: normal inspection, PERRL, EOMI, sclerae normal ENT: hearing grossly normal, pharynx normal, + pertinent finding (mucous membranes moist) Neck: supple, no JVD, trachea midline Respiratory/Chest: no accessory muscle use (becomes SOB after couple of sentences), + decreased breath sounds (throughout), + wheezing (throughout) Cardiovascular: + tachycardia (regular rhythm ) Abdomen/GI: normal bowel sounds, non tender, soft Extremities/Musculoskelatal: normal inspection, no pedal edema, normal range of motion, non-tender Neurologic/Psych: alert, normal mood/affect, oriented x 3 Skin: normal color, warm/dry Diagnostics Laboratory Results Medical Problems: (1) COPD (chronic obstructive pulmonary disease) Status: Chronic (2) ETOH abuse Status: Chronic Diagnostic Radiology CXR: IMPRESSION: 1. Persistent left basilar opacity. An infectious etiology cannot be excluded, although this was present on prior CT from 04/23/2017. This should be followed to resolution to exclude the possibility of a neoplasm. 2. Emphysema. 3. No new focal infiltrate. CTA CHEST IMPRESSION: 1. No evidence of pulmonary embolus. 2. Stable slight interval decrease size of the focal nodular consolidation in the lateral basal segment of the left lower lobe. This remains most concerning for focal infectious or inflammatory etiology but should be followed radiographically to resolution would neoplasm especially given the underlying emphysema. 3. No new consolidation. 4. Severe emphysema with multifocal bronchial mucus plugging or debris. 5. Evidence of prior granulomatous infection. EKG EKG: Sinus tachycardia, rate 107, PAC Impression Assessment and Plan COPD EXACERBATION Pt with worsening SOB with walking/ADLs, on chronic 2L O2 NC and 4L with activity. Reports cough green sputum past several days. Today No leukocytosis, afebrile, ABG: pH: 7.3, PO2: 165, PCO2: 42, HCO3: 23. Tachycardia, tachypneic. Pt given cefepime, solumedrol 125mg, & DuoNeb in ER with reports of decreased SOB. -blood cultures pending -Xopenex/Atrovent nebs Q6H, prn Q2H -ceftriaxone, Zithromax -sputum culture -influenza swab -Solumedrol 60mg Q8H -cbc, prp in am -pulmonology consult LLL CONSOLIDATION CTA CHEST: IMPRESSION:1. No evidence of pulmonary embolus. 2. Stable slight interval decrease size of the focal nodular consolidation in the lateral basal segment of the left lower lobe. This remains most concerning for focal infectious or inflammatory etiology but should be followed radiographically to resolution would neoplasm especially given the underlying emphysema. 3. No new consolidation. 4. Severe emphysema with multifocal bronchial mucus plugging or debris. 5. Evidence of prior granulomatous infection. -ceftriaxone, zithromax -pulmonology consult LACTIC ACIDOSIS POC lactic acid: 1.92. Suspect secondary to hypoxia -repeat lactic acid -NSS 100ml/hr MILDLY ELEVATED TROPONIN Troponin: 0.053. EKG: sinus tachycardia rate 107, no significant ST elevation. Hx elevated troponin last admission also, highest 0.078. Suspect demand ischemia from hypoxia. Pt denies CP. Hx ECHO 04/24/17: EF: 55-60% -Trend cardiac enzymes -repeat EKG ETOH ABUSE Pt reports drinking 5 beers a day -ETOH withdrawal protocol with gabapentin & Ativan prn -continue folic acid, thiamine, multivitamin DVT PROPHYLAXIS -Heparin SQ DISPOSITION -admit tele -Full Code as per discussion with pt -Follows with Dr Owens for routine care Pt was seen with Dr Wei. See addendum ATTENDING ADDENDUM : pt seen and examined, in agreement with above H&P 76 yo M with severe advanced emphysema , home 02 dependent presented > 1 week symptom of progressive SOB , green sputum production, significant orthopnea , XIAO in the ER pt was found to be hypoxic /tachycardic /tachypneic P/E: GEN : cachectic, in respiratory distress HEENT : sclera non icteric LUNGS ; very diminished air entry , + wheeze ext : no edema , rash Neuro: no focal deficit Acute hypoxemic respiratory failure /due to COPD exacerbation /possible LLB pneumonia symptom mildly improved with 1 hr long neb tx /IV solu medrol pt will be admitted to Tele Pulmonology consulted -pt is knows to Dr Gill , was scheduled for office visit tomorrow 05/21/17 empiric ABx with Rocephin /Zithromax CTA of chest ordered for R/O PE and better assessment of persisted LLL infiltrate /vs Nodule Please refer to further documentation of Suzi Dan PA-C for further discussion of other issues Mercedes Wei MD Level of Care Telemetry Advanced Directives Existing Living Will: No Existing Power of Straight[employer] Gun Parts: No Resuscitation Status FULL RESUSCITATION VTE Prophylaxis VTE Risk Assessment Done? Y/N: Yes Risk Level: Moderate Given or contraindicated: Unfractionated heparin SQ Additional Copies To Abram Owens M.D. Waddington, Thomas W., MD
[2017-05-20] MEDS: LEVALBUTEROL 1.25MG/0.5ML NEB INH SCH ×3 (11:19→19:19)
[2017-05-20] MEDS: IPRATROPIUM BROMIDE NEB SOLN 0.02% 2.5 ML VIAL INH SCH ×3 (11:19→19:19)
[2017-05-20] MEDS ORDERED: LEVALBUTEROL/IPRATROPIUM NEB INH SCH (12:00)
[2017-05-20] MEDS: HEPARIN SOD 5000 UNIT/0.5 ML CARP SQ SCH ×2 (13:37→22:20)
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
[2017-05-20 14:57] LABS: CKMB/CK RATIO 2.7 (0-3.0)
[2017-05-20] MEDS: GABAPENTIN 600MG Q6H DOSE PO SCH ×2 (15:26→22:23)
[2017-05-20] MEDS: DORNASE ALFA (2500U) 2.5MG/2.5ML INH SCH (19:19)
[2017-05-20 21:15] LABS: INFLUENZA A PCR Neg for Influ A (NEG); INFLUENZA B PCR Neg for Influ B (NEG)
[2017-05-20 22:43] LABS: CKMB/CK RATIO 2.2 (0-3.0)
[2017-05-21] VITALS (10 sets, daily range): BP systolic 127–161; BP diastolic 69–84; PULSE 71–104; TEMP 36.4–36.8; O2SAT 95–99
[2017-05-21] MEDS: METHYLPREDNISOLONE IV 60 MG in SYRINGE 0 ML IV SCH ×3 (01:58→20:54)
[2017-05-21] MEDS: GABAPENTIN 600MG Q8H DOSE PO SCH ×2 (05:55→14:55)
[2017-05-21] MEDS: HEPARIN SOD 5000 UNIT/0.5 ML CARP SQ SCH ×2 (05:56→14:57)
[2017-05-21 05:57] LABS: HEMATOCRIT 35.4 % (42-52); MEAN CELL VOLUME 101.1 fL (80-100); MEAN CORPUSCULAR HEMOGLOBIN 35.1 pg (25-34); MEAN CORPUSCULAR HGB CONC 34.7 g/dl (32-36); MEAN PLATELET VOLUME 9.5 fL (7.4-10.4); PLATELET COUNT 150 K/uL (130-400); WHITE BLOOD COUNT 6.87 K/uL (4.8-10.8)
[2017-05-21 06:11] LABS: BUN/CREATININE RATIO 16.5 (10-20); CALCIUM 8.6 mg/dl (8.5-10.1); CREATININE 0.96 mg/dl (0.60-1.40); MAGNESIUM 1.9 mg/dl (1.8-2.4); POTASSIUM 3.8 mmol/L (3.5-5.1)
[2017-05-21] MEDS: IPRATROPIUM BROMIDE NEB SOLN 0.02% 2.5 ML VIAL INH SCH ×5 (06:57→19:49)
[2017-05-21] MEDS: LEVALBUTEROL 1.25MG/0.5ML NEB INH SCH ×5 (06:57→19:49)
[2017-05-21] MEDS: DORNASE ALFA (2500U) 2.5MG/2.5ML INH SCH ×2 (06:58→19:48)
--- NOTE | 2017-05-21 07:15 | Clinical Documentation Query ---
Dr. HEATH [facility] : CLINICAL DOCUMENTATION QUERIES QUERY 1 OF 2 Documentation includes "LLL consolidation". Patient was continued on Rocephin and Zithromax. Pulmonary consultation obtained. Blood and sputum cultures pending. Additionally recieving Solumedrol, nebulizer treatments, vibration vest, flutter valve and is being monitored on telemetry. Additionally, patient was discharged 04/28/17 after a COPD exacerbation in the setting of LLL pneumonia. Consider documentation as suggested below as clinically appropriate. Thank you. In your clinical opinion is this patient being managed for: (x ) (Possible) Pneumonia ( ) Not Agree ( ) Other explanation of clinical findings (Please Explain) ( ) Unable to determine (Please Define) ( ) Need to Discuss The medical record reflects the following clinical findings, treatment, and risk factors. Clinical Indicators: As above Treatment:Patient was continued on Rocephin and Zithromax. Pulmonary consultation obtained. Blood and sputum cultures pending. Additionally recieving Solumedrol, nebulizer treatments, vibration vest, flutter valve and is being monitored on telemetry Risk Factors: COPD QUERY 2 OF 2 Patient is a 76 year old male admitted for evaluation and treatment of increased SOB and chest tightness. H&P notes that patient utilizes 2L of oxygen via nasal cannula and 4L with exertion. As appropriate, consider clarification as suggested below. Thank you. In your clinical opinion is this patient being managed for: ( x ) Chronic respiratory failure with hypoxia ( ) Not Agree ( ) Other explanation of clinical findings (Please Explain) ( ) Unable to determine (Please Define) ( ) Need to Discuss The medical record reflects the following clinical findings, treatment, and risk factors. Clinical Indicators: As above Treatment: Ongoing provision of supplemental O2 Risk Factors: COPD Please clarify and document your clinical opinion in the progress notes and discharge summary. Terms such as "probable", "suspected", "likely", "questionable", "possible", or "still to be ruled out" are acceptable. IF IN AGREEMENT, YOU MUST DOCUMENT ABOVE DIAGNOSTIC STATEMENT IN DAILY PROGRESS NOTES AND DISCHARGE SUMMARY. This document is not part of the patient's record. Thank You, Uday Franco, RN [phone]
--- NOTE | 2017-05-21 08:04 | DIAGNOSTIC IMAGING REPORT ---
CHEST ONE VIEW PORTABLE CLINICAL HISTORY: COPD EXACERBATION COMPARISON STUDY: Chest radiograph and chest CT May 20, 2017. FINDINGS: Severe emphysema is noted. There is no pneumothorax or pleural effusion. A 2.5 cm left basilar opacity persists. This remains indeterminate. Cardiomediastinal silhouette is normal. There is no evidence of pulmonary edema. IMPRESSION: 1. No significant change in the 2.5 cm nodular left lower lung opacity. This remains indeterminate although an infectious process is favored. A neoplasm could appear similar and radiographic follow-up to ensure resolution is recommended. 2. Severe emphysema. Electronically signed by: Charles Littlejohn M.D. 05/21/2017 8:03 AM Dictated Date/Time: 05/21/2017 7:58 AM
[2017-05-21] MEDS: AZITHROMYCIN 250 MG TAB PO SCH (08:26)
[2017-05-21] MEDS: FLUTICASONE/SALMETEROL 250/50 (ADVAIR) 14 PUFF/1 INHALER INH SCH (08:26)
[2017-05-21] MEDS ORDERED: LORAZEPAM 0.5 MG TAB PO PRN (09:15)
[2017-05-21] MEDS: ROFLUMILAST 500 MCG TAB PO SCH (09:25)
[2017-05-21] MEDS: THIAMINE HCL 100 MG TAB PO SCH (09:25)
[2017-05-21] MEDS: CEFTRIAXONE SOD INJ 1 GM in DEXTROSE 5% ADD-VANTAGE 50ML 50 ML IV SCH (09:26)
--- NOTE | 2017-05-21 11:51 | Pulmonology Progress Note ---
Pulmonary Progress Note Date of Service May 21, 2017. Attending Dr. Gill Subjective Notes improving dyspnea at rest, difficulty clearing secretions and some chronic rhinitis Objective Patient comforatble but usin acessary muscle for breathing: VS: I/Os: +1.6L SaO2%: 95-99% FiO2: 2Lnc RR: 18-20 HR: 71-90 Resp: bilateral rhonchi Card: S1 S2 RRR with distant HS Abd: + BS soft no-tender Ext: no C/C/E Studies WBC: 7K ABG (05/20/17) 7.37/42/165/23 on 7L D-dimer: 390 Troponin I: [id number] CTA chest (05/20/17) compared to CTA (04/23/17) o Decreased in size of the LLL infiltrate vs. from 38mm to 30mm o Possible mucus plugs vs. aspiration at the takeoff of the left main-stem bronchi Active pulmonary Medications: 1. Dornase Neb 2. Xopenex/Atrovent Neb 3. Methylprednisolone 60mg Q6 4. Ceftriaxone 1gm QD 5. Azithromycin 500mg QD 6. Advair 250/50 BID 7. Daliresp Assessment & Plan 76 w/o male with recurrent SOB/COPD exacerbations: 1) COPD Exacerbation: At this time the patient is improving so a suggest we continue his current medications but decreases his prednisone at this time to 40mg/QD. I will start this tomorrow. The patient continues to have repeat episodes of SOB/COPD exacerbations. I suggest we move forward with a swallow eval and sinus imaging as these are unknown etiologies of recurrent cough. 2) Medications/Treatment: Steroids, Dornase, Vest PT, Flutter valve, Xopenex/ Atrovent Nebs, Ceftriaxone, Azithromycin, Advair increase to 500/50 and continue Daliresp 3) LLL nodule/Mass: decreased size of almost 1cm in the last month suggest no acute intervention is necessary at this time. Data Medications: Current Inpatient Medications Medications (Trade) Dose Ordered Sig/Rigoberto Route Start Time Stop Time Status Last Admin Dose Admin Heparin Sodium (Porcine) (Heparin Sq 5000 Unit/0.5ml) 5,000 unit Q8 SQ 05/20/17 14:00 06/19/17 13:59 05/21/17 05:56 5,000 UNIT Acetaminophen (Tylenol Tab) 650 mg Q4H PRN PO 05/20/17 08:30 06/19/17 08:29 Al Hydrox/Mg Hydrox/Simethicone (Maalox Max Susp) 15 ml Q4H PRN PO 05/20/17 08:30 06/19/17 08:29 Magnesium Hydroxide (Milk Of Magnesia Susp) 30 ml Q12H PRN PO 05/20/17 08:30 06/19/17 08:29 Ondansetron HCl (Zofran Inj) 4 mg Q6H PRN IV 05/20/17 08:30 06/19/17 08:29 Nitroglycerin (Nitrostat Tab) 0.4 mg UD PRN SL 05/20/17 08:30 06/19/17 08:29 Polyethylene (Miralax Powder Packet) 17 gm DAILY PRN PO 05/20/17 08:30 06/19/17 08:29 Ioversol (Optiray 320) 125 ml UD PRN IV 05/20/17 08:30 05/24/17 08:29 Methylprednisolone Sodium Succinate 60 mg/Syringe 0.96 ml @ 1.5 mls/min Q8H IV 05/20/17 10:00 06/19/17 09:59 05/21/17 09:26 1.5 MLS/MIN Ceftriaxone Sodium 1 gm/ Dextrose 50 ml @ 100 mls/hr Q24H IV 05/20/17 10:00 05/27/17 09:59 05/21/17 09:26 100 MLS/HR Azithromycin (Zithromax Tab) 500 mg QAM PO 05/20/17 09:00 05/27/17 08:59 05/21/17 08:26 500 MG Salmeterol Xinafoate/ Fluticasone (Advair Diskus 250/50 Inh) 1 puff BID INH 05/20/17 09:00 06/19/17 08:59 05/21/17 08:26 1 PUFF Folic Acid (Folvite Tab) 1 mg DAILY PO 05/20/17 09:00 06/19/17 08:59 05/21/17 08:26 1 MG Roflumilast (Daliresp Tab) 500 mcg DAILY PO 05/20/17 09:00 06/19/17 08:59 05/21/17 09:25 500 MCG Thiamine HCl (Vitamin B-1 Tab) 100 mg DAILY PO 05/20/17 09:00 06/19/17 08:59 05/21/17 09:25 100 MG Ipratropium [place] (Atrovent 0.02% 0.5MG/2.5ML Neb) 0.5 mg Q4RWA INH 05/20/17 12:00 06/19/17 11:59 05/21/17 11:11 0.5 MG Levalbuterol (Xopenex 1.25MG/ 0.5ML Neb) 1.25 mg Q4RWA INH 05/20/17 12:00 06/19/17 11:59 05/21/17 11:11 1.25 MG Gabapentin (Neurontin Tab) 600 mg Q8H PO 05/21/17 06:00 05/21/17 22:01 05/21/17 05:55 600 MG Gabapentin (Neurontin Tab) 600 mg Q12H PO 05/22/17 10:00 05/22/17 22:01 Gabapentin (Neurontin Tab) 600 mg Q24H PO 05/23/17 22:00 05/23/17 22:01 Dornase Dane (Pulmozyme Inhalation Soln 2.5ml Amp) 2.5 ml BID INH 05/20/17 21:00 06/19/17 20:59 05/21/17 06:58 2.5 ML Lorazepam (Ativan Tab) 0.5 mg Q6 PRN PO 05/21/17 09:15 06/20/17 09:14 05/21/17 09:25 0.5 MG Vital Signs: Date Time Temp Pulse Resp B/P (MAP) Pulse Ox O2 Delivery O2 Flow Rate FiO2 05/21/17 11:37 36.6 97 18 147/81 (103) 96 2.0 05/21/17 11:12 98 20 98 Nasal Cannula 2.0 05/21/17 08:37 Room Air 05/21/17 07:53 36.5 90 20 161/73 (102) 95 2.0 05/21/17 07:01 90 18 96 Nasal Cannula 2.0 05/21/17 04:00 Nasal Cannula 2.0 05/21/17 03:00 36.4 71 18 132/69 (90) 99 Nasal Cannula 2.0 05/21/17 00:00 Nasal Cannula 2.0 05/20/17 23:20 36.7 99 20 151/71 (97) 96 Nasal Cannula 2.0 05/20/17 20:22 36.7 111 20 134/76 (95) 96 Nasal Cannula 2.0 05/20/17 19:40 99 Nasal Cannula 2.0 05/20/17 19:19 101 20 99 Nasal Cannula 2.0 05/20/17 15:50 36.6 105 18 127/71 (89) 97 Room Air 05/20/17 15:30 100 20 97 Nasal Cannula 2.0 05/20/17 15:20 Nasal Cannula 2.0 05/20/17 12:00 98 Nasal Cannula 2.0 Laboratory Results: Last 24 Hours Test 05/20/17 14:09 05/20/17 19:00 05/20/17 22:08 05/21/17 05:18 Total Creatine Kinase 114 U/L 133 U/L Creatine Kinase MB 3.1 ng/ml 2.9 ng/ml Creatine Kinase MB Ratio 2.7 2.2 Troponin I 0.130 ng/ml 0.072 ng/ml Influenza Type A (RT-PCR) Neg for Influ A Influenza Type A Antigen Neg for Influ A Influenza Type B Antigen Neg for Influ B Influenza Type B (RT-PCR) Neg for Influ B White Blood Count 6.87 K/uL Red Blood Count 3.50 M/uL Hemoglobin 12.3 g/dL Hematocrit 35.4 % Mean Corpuscular Volume 101.1 fL Mean Corpuscular Hemoglobin 35.1 pg Mean Corpuscular Hemoglobin Concent 34.7 g/dl RDW Standard Deviation 48.6 fL RDW Coefficient of Variation 13.0 % Platelet Count 150 K/uL Mean Platelet Volume 9.5 fL Sodium Level 139 mmol/L Potassium Level 3.8 mmol/L Chloride Level 105 mmol/L Carbon Dioxide Level 26 mmol/L Anion Gap 7.0 mmol/L Blood Urea Nitrogen 16 mg/dl Creatinine 0.96 mg/dl Est Creatinine Clear Calc Drug Dose 56.3 ml/min Estimated GFR () 89.9 Estimated GFR (Non- 77.6 BUN/Creatinine Ratio 16.5 Random Glucose 169 mg/dl Lactic Acid Level 1.6 mmol/L Calcium Level 8.6 mg/dl Magnesium Level 1.9 mg/dl Test 05/21/17 10:57 Bedside Glucose 134 mg/dl
--- NOTE | 2017-05-21 16:14 | DIAGNOSTIC IMAGING REPORT ---
SINUSES-MAXILLOFACIAL W/O CLINICAL HISTORY: 76 years-old Male presenting with chronic rhinitis. TECHNIQUE: Multidetector CT of the sinuses was performed without the use of intravenous contrast. IV contrast: None. A dose lowering technique was used consistent with the principles of ALARA (as low as reasonably achievable). COMPARISON: None. CT DOSE (mGy.cm): The estimated cumulative dose is 289.26 mGycm. FINDINGS: Bisque Grader topogram: Unremarkable. Mild polypoid mucosal thickening in the left maxillary sinus. Minimal mucosal thickening also noted in the medial aspect of the left frontal sinus. This results in mucosal obstruction of the bilateral nasal frontoethmoidal recesses. Remainder of paranasal sinuses are clear. Bilateral ostiomeatal units patent though a tiny Blank cell is noted on the left. Postsurgical changes of right maxillary antrostomy. Maranda bullosa of the left middle turbinate. Mild rightward deviation of the bony nasal septum with nonbridging bony spurring noted. No dehiscence of the bony optic canals. Minimal asymmetric sclerosis of the right maxillary sinus wall relative to the left. Temporomandibular joints intact. All of the maxillary teeth are absent. The bilateral orbits are normal. Limited intracranial evaluation within normal limits. IMPRESSION: Minimal asymmetric sclerosis of the right maxillary sinus wall relative to the left could suggest chronic sinusitis. No evidence of acute sinusitis at this time. The bilateral nasofrontal ethmoidal recesses are obstructed secondary to mucosal thickening in the medial aspect of the left frontal sinus. Anatomic variants and postsurgical changes as above. Electronically signed by: Rosalino Norwood M.D. 05/21/2017 4:13 PM Dictated Date/Time: 05/21/2017 4:04 PM
--- NOTE | 2017-05-21 18:23 | Progress Note ---
Internal Med Progress Note Date of Service: May 21, 2017. Provider Documentation: SUBJECTIVE: mentions of SOB improved has persisted non productive cough no fever or chills OBJECTIVE: Vital Signs-as noted below Exam: General-this , Cachectic , no apparent distress, able to talk in sentences Eyes-sclera non icteric, PERRLA/EOMI ENT-moist oral mucosa , no exudate or erythema noted in oropharynx Neck-trachea midline , no thyromegaly Lungs-diminished breath sound , poor air entry , + crackles at base Heart-regular S1/S2 Abdomen-soft, non tender Extremities-no rash or deformity Neuro-AAO x3, no focal neurological deficit Lab data as noted below. ASSESSMENT & PLAN: ACUTE HYPOXEMIC RESPIRATORY FAILURE : multifactorial COPD EXACERBATION/with persistent LLB pneumonia /mucous plug symptom improved with Pulmonary toileting , IV steroids Neb tx -Xopenex/Atrovent nebs Q6H, prn Q2H -on empiric abx with ceftriaxone, Zithromax pulmonology consulted appreciate input LLL CONSOLIDATION/PNEUMONIA CTA CHEST: IMPRESSION:1. No evidence of pulmonary embolus. 2. Stable slight interval decrease size of the focal nodular consolidation in the lateral basal segment of the left lower lobe. This remains most concerning for focal infectious or inflammatory etiology but should be followed radiographically to resolution would neoplasm especially given the underlying emphysema. 3. No new consolidation. 4. Severe emphysema with multifocal bronchial mucus plugging or debris. 5. Evidence of prior granulomatous infection. -ON abX ceftriaxone, zithromax sputum /blood culture ordered -pulmonology following will benefit with Bronchoscopic eval CHRONIC SINUSITIS : noted in CT sinus on adequate ABx coverage LACTIC ACIDOSIS POC lactic acid: mild elevation 1.92. Suspect secondary to hypoxia no evidence of sepsis Lactic acid normalized with improvement of respiratory status given IV fluids MILDLY ELEVATED TROPONIN Troponin: 0.053. EKG: sinus tachycardia rate 107, no significant ST elevation. Hx elevated troponin last admission also, highest 0.078. Suspect demand ischemia from hypoxia. Pt denies CP. Hx ECHO 04/24/17: EF: 55-60% -Trend cardiac enzymes no ischemic change note in EKG ETOH ABUSE denies of any recent alcohol intake -continue folic acid, thiamine, multivitamin DVT PROPHYLAXIS moderat to high risk -Heparin SQ DISPOSITION PT/OT eval prior to discharge home -Follows with Dr Pilgram for routine care Pulmonology follow up with Dr Gill Vital Signs: Date Time Temp Pulse Resp B/P (MAP) Pulse Ox O2 Delivery O2 Flow Rate FiO2 05/21/17 19:04 36.8 104 18 142/84 (103) 95 Nebulizer 05/21/17 19:03 88 20 98 Nasal Cannula 2.0 05/21/17 16:00 Room Air 05/21/17 15:31 36.6 101 20 127/78 (94) 96 Nasal Cannula 2.0 05/21/17 15:26 101 20 99 Nasal Cannula 2.0 05/21/17 12:00 Room Air 05/21/17 11:37 36.6 97 18 147/81 (103) 96 2.0 05/21/17 11:12 98 20 98 Nasal Cannula 2.0 05/21/17 08:37 Room Air 05/21/17 07:53 36.5 90 20 161/73 (102) 95 2.0 05/21/17 07:01 90 18 96 Nasal Cannula 2.0 05/21/17 04:00 Nasal Cannula 2.0 05/21/17 03:00 36.4 71 18 132/69 (90) 99 Nasal Cannula 2.0 05/21/17 00:00 Nasal Cannula 2.0 05/20/17 23:20 36.7 99 20 151/71 (97) 96 Nasal Cannula 2.0 Lab Results: Results Past 24 Hours Test 05/20/17 22:08 05/21/17 05:18 05/21/17 10:57 Range/Units Total Creatine Kinase 133 39-308 U/L Creatine Kinase MB 2.9 0.5-3.6 ng/ml Creatine Kinase MB Ratio 2.2 0-3.0 Troponin I 0.072 0-0.045 ng/ml White Blood Count 6.87 4.8-10.8 K/uL Red Blood Count 3.50 4.7-6.1 M/uL Hemoglobin 12.3 14.0-18.0 g/dL Hematocrit 35.4 42-52 % Mean Corpuscular Volume 101.1 80-100 fL Mean Corpuscular Hemoglobin 35.1 25-34 pg Mean Corpuscular Hemoglobin Concent 34.7 32-36 g/dl RDW Standard Deviation 48.6 36.4-46.3 fL RDW Coefficient of Variation 13.0 11.5-14.5 % Platelet Count 150 130-400 K/uL Mean Platelet Volume 9.5 7.4-10.4 fL Sodium Level 139 136-145 mmol/L Potassium Level 3.8 3.5-5.1 mmol/L Chloride Level 105 98-107 mmol/L Carbon Dioxide Level 26 21-32 mmol/L Anion Gap 7.0 3-11 mmol/L Blood Urea Nitrogen 16 7-18 mg/dl Creatinine 0.96 0.60-1.40 mg/dl Est Creatinine Clear Calc Drug Dose 56.3 ml/min Estimated GFR () 89.9 Estimated GFR (Non- 77.6 BUN/Creatinine Ratio 16.5 10-20 Random Glucose 169 70-99 mg/dl Lactic Acid Level 1.6 0.4-2.0 mmol/L Calcium Level 8.6 8.5-10.1 mg/dl Magnesium Level 1.9 1.8-2.4 mg/dl Bedside Glucose 134 70-99 mg/dl
--- NOTE | 2017-05-21 18:28 | Progress Note ---
Progress Note Date of Service May 21, 2017. Progress Note ATTENDING NOTE : sputum culture -specimen 05/20/17 : GRAM STAIN Final 05/21/17-0937 RESULT RARE EPITHELIAL CELLS MANY POLYS FEW GRAM POSITIVE COCCI SPUTUM CULTURE Preliminary 05/21/17-1210 Organism 1 PROBABLE PSEUDOMONAS SPECIES QUANITY FEW SENS SENSITIVITY TO FOLLOW NORMAL CONCEPCION LIGHT NORMAL CONCEPCION STARTED ON IV CEFEPIME FOR PSEUDOMONAL COVERAGE ADDED AUGMENTIN PO FOR SINUS INFECTION D/C ROCEPHIN /ZITHROMAX ID CONSULT REQUESTED FOR APPROPRIATE ORAL ABX AND DURATION OF TX
[2017-05-21] MEDS: FLUTICASONE/SALMETEROL (ADVAIR) 500/50 INH 14 PUFF INH SCH (20:54)
[2017-05-21] MEDS ORDERED: CEFEPIME IV 1,000 MG in DEXTROSE 5% 100ML 100 ML IV SCH (21:00)
[2017-05-21] MEDS: AMOXICILLIN/CLAVULANATE TAB 875 MG TAB PO SCH (22:03)
[2017-05-22] VITALS (11 sets, daily range): BP systolic 112–153; BP diastolic 66–86; PULSE 76–117; TEMP 36.5–36.8; O2SAT 94–98
[2017-05-22] MEDS: IPRATROPIUM BROMIDE NEB SOLN 0.02% 2.5 ML VIAL INH SCH ×4 (06:50→19:11)
[2017-05-22] MEDS: LEVALBUTEROL 1.25MG/0.5ML NEB INH SCH ×4 (06:50→19:11)
[2017-05-22] MEDS: DORNASE ALFA (2500U) 2.5MG/2.5ML INH SCH ×2 (06:51→20:20)
[2017-05-22 06:53] LABS: BUN/CREATININE RATIO 20.1 (10-20); CALCIUM 8.7 mg/dl (8.5-10.1); CREATININE 0.85 mg/dl (0.60-1.40); MAGNESIUM 1.9 mg/dl (1.8-2.4); POTASSIUM 4.1 mmol/L (3.5-5.1)
[2017-05-22] MEDS: AMOXICILLIN/CLAVULANATE TAB 875 MG TAB PO SCH ×2 (09:52→17:49)
[2017-05-22] MEDS: METHYLPREDNISOLONE IV 60 MG in SYRINGE 0 ML IV SCH ×2 (09:52→21:29)
[2017-05-22] MEDS: CEFEPIME IV 1,000 MG in SYRINGE 0 ML IV SCH ×2 (09:52→21:30)
[2017-05-22] MEDS: THIAMINE HCL 100 MG TAB PO SCH (09:53)
[2017-05-22] MEDS: FLUTICASONE/SALMETEROL (ADVAIR) 500/50 INH 14 PUFF INH SCH ×2 (09:53→21:26)
[2017-05-22] MEDS: ROFLUMILAST 500 MCG TAB PO SCH (09:53)
[2017-05-22] MEDS ORDERED: GABAPENTIN 600MG Q12H DOSE PO SCH (10:00)
--- NOTE | 2017-05-22 12:37 | Pulmonology Progress Note ---
Pulmonary Progress Note Date of Service May 22, 2017. Attending Dr. Gill Subjective Patient still notes he is short of breath not back to his baseline having difficulty clearing secretions. Objective Patient is doing well able to sit up in bed today with no signs of accessory muscle use and/or tachypnea during our conversation. VS: SaO2%: 95 98 % FiO2: 2 liters nasal cannula RR: 18-25 HR: 76-117 Resp: Decreased breath sounds but otherwise clear to auscultation Card: S1-S2 regular rate and rhythm distant heart sounds Abd: Positive bowel sounds soft nontender Ext: No clubbing cyanosis or edema Active pulmonary Medications: 1. Cefepime 1 gram q.12 hours 2. Methylprednisolone 60 mg IV Q 12 hours 3. Advair 500/51 puff b.i.d. 4. Augmentin 875/125 b.i.d. 5. Dornase nebulized 6. Xopenex/Atrovent nebulizer q.4 hours 7. Daliresp 500 micrograms daily Assessment & Plan 76 w/o male with recurrent SOB/COPD exacerbations: 1) COPD Exacerbation: Patient is sitting up in bed looking good today but he still notes having some dyspnea on exertion. I will be a more aggressive today and switch the patient to oral steroids tomorrow. If he is doing well by Wednesday or Wednesday and is swallow evaluation is clear we should be able to initiate discharged to a senior living facility and/or home. 2) Medications/Treatment: Dornase, Vest PT, Flutter valve, Xopenex/Atrovent Nebs , Ceftriaxone, Azithromycin, Advair increase to 500/50 and continue Daliresp. Will decrease steroids tomorrow to 40 mg p.o. daily. 3) LLL nodule/Mass: decreased size of almost 1cm in the last month suggest no acute intervention is necessary at this time. Data Medications: Current Inpatient Medications Medications (Trade) Dose Ordered Sig/Rigoberto Route Start Time Stop Time Status Last Admin Dose Admin Heparin Sodium (Porcine) (Heparin Sq 5000 Unit/0.5ml) 5,000 unit Q8 SQ 05/20/17 14:00 06/19/17 13:59 Future Hold 05/21/17 14:57 5,000 UNIT Acetaminophen (Tylenol Tab) 650 mg Q4H PRN PO 05/20/17 08:30 06/19/17 08:29 Al Hydrox/Mg Hydrox/Simethicone (Maalox Max Susp) 15 ml Q4H PRN PO 05/20/17 08:30 06/19/17 08:29 Magnesium Hydroxide (Milk Of Magnesia Susp) 30 ml Q12H PRN PO 05/20/17 08:30 06/19/17 08:29 Ondansetron HCl (Zofran Inj) 4 mg Q6H PRN IV 05/20/17 08:30 06/19/17 08:29 Nitroglycerin (Nitrostat Tab) 0.4 mg UD PRN SL 05/20/17 08:30 06/19/17 08:29 Polyethylene (Miralax Powder Packet) 17 gm DAILY PRN PO 05/20/17 08:30 06/19/17 08:29 Ioversol (Optiray 320) 125 ml UD PRN IV 05/20/17 08:30 05/24/17 08:29 Folic Acid (Folvite Tab) 1 mg DAILY PO 05/20/17 09:00 06/19/17 08:59 05/22/17 09:53 1 MG Roflumilast (Daliresp Tab) 500 mcg DAILY PO 05/20/17 09:00 06/19/17 08:59 05/22/17 09:53 500 MCG Thiamine HCl (Vitamin B-1 Tab) 100 mg DAILY PO 05/20/17 09:00 06/19/17 08:59 05/22/17 09:53 100 MG Ipratropium [place] (Atrovent 0.02% 0.5MG/2.5ML Neb) 0.5 mg Q4RWA INH 05/20/17 12:00 06/19/17 11:59 05/22/17 11:04 0.5 MG Levalbuterol (Xopenex 1.25MG/ 0.5ML Neb) 1.25 mg Q4RWA INH 05/20/17 12:00 06/19/17 11:59 05/22/17 11:04 1.25 MG Dornase Dane (Pulmozyme Inhalation Soln 2.5ml Amp) 2.5 ml BID INH 05/20/17 21:00 06/19/17 20:59 05/22/17 06:51 2.5 ML Lorazepam (Ativan Tab) 0.5 mg Q6 PRN PO 05/21/17 09:15 06/20/17 09:14 05/21/17 09:25 0.5 MG Methylprednisolone Sodium Succinate 60 mg/Syringe 0.96 ml @ 1.5 mls/min Q12H IV 05/21/17 22:00 06/20/17 21:59 05/22/17 09:52 1.5 MLS/MIN Salmeterol Xinafoate/ Fluticasone (Advair Diskus 500/50 Inh) 1 puff BID INH 05/21/17 21:00 06/20/17 20:59 05/22/17 09:53 1 PUFF Amoxicillin/ Clavulanate Potassium (Augmentin Tab) 875 mg BIDM PO 05/21/17 20:45 05/28/17 20:44 05/22/17 09:52 875 MG Cefepime HCl 1000 mg/Syringe 11 ml @ 5.5 mls/min Q12 IV 05/22/17 09:00 05/29/17 08:59 05/22/17 09:52 5.5 MLS/MIN Vital Signs: Date Time Temp Pulse Resp B/P (MAP) Pulse Ox O2 Delivery O2 Flow Rate FiO2 05/22/17 11:53 36.5 112 20 114/66 (82) 95 Nasal Cannula 2.0 05/22/17 11:05 117 18 97 Nasal Cannula 2.0 05/22/17 07:57 36.6 76 22 153/82 (105) 96 Nasal Cannula 2.0 05/22/17 06:52 84 18 98 Nasal Cannula 2.0 05/22/17 04:00 Nasal Cannula 2.0 05/22/17 03:15 36.5 79 25 149/82 (104) 97 Nasal Cannula 2.0 05/21/17 23:59 Nasal Cannula 2.0 05/21/17 23:18 36.4 97 22 146/80 (102) 97 Nasal Cannula 2.0 05/21/17 20:00 Nasal Cannula 2.0 05/21/17 19:04 36.8 104 18 142/84 (103) 95 Nebulizer 05/21/17 19:03 88 20 98 Nasal Cannula 2.0 05/21/17 16:00 Room Air 05/21/17 15:31 36.6 101 20 127/78 (94) 96 Nasal Cannula 2.0 05/21/17 15:26 101 20 99 Nasal Cannula 2.0 Laboratory Results: Last 24 Hours Test 05/22/17 05:38 Sodium Level 137 mmol/L Potassium Level 4.1 mmol/L Chloride Level 105 mmol/L Carbon Dioxide Level 28 mmol/L Anion Gap 4.0 mmol/L Blood Urea Nitrogen 17 mg/dl Creatinine 0.85 mg/dl Est Creatinine Clear Calc Drug Dose 64.0 ml/min Estimated GFR () 99.5 Estimated GFR (Non- 85.8 BUN/Creatinine Ratio 20.1 Random Glucose 129 mg/dl Calcium Level 8.7 mg/dl Magnesium Level 1.9 mg/dl
--- NOTE | 2017-05-22 16:50 | Progress Note ---
Internal Med Progress Note Date of Service: May 22, 2017. Provider Documentation: SUBJECTIVE: on 2 L 02 at rest , approx baseline cough has improved, no complain of SOB noticed mild XIAO no fever or chills OBJECTIVE: Vital Signs-as noted below Exam: General-this , Cachectic , no apparent distress, able to talk in sentences Eyes-sclera non icteric, PERRLA/EOMI ENT-moist oral mucosa , no exudate or erythema noted in oropharynx Neck-trachea midline , no thyromegaly Lungs-diminished breath sound , poor air entry , + crackles at base Heart-regular S1/S2 Abdomen-soft, non tender Extremities-no rash or deformity Neuro-AAO x3, no focal neurological deficit Lab data as noted below. ASSESSMENT & PLAN: ACUTE HYPOXEMIC RESPIRATORY FAILURE : multifactorial COPD EXACERBATION/with persistent LLB pneumonia /mucous plug symptom improved with Pulmonary toileting , IV steroids Neb tx -Xopenex/Atrovent nebs Q6H, prn Q2H -on empiric abx with ceftriaxone, Zithromax pulmonology consulted appreciate input LLL CONSOLIDATION/PNEUMONIA -PSEUDOMONAS CTA CHEST: IMPRESSION:1. No evidence of pulmonary embolus. 2. Stable slight interval decrease size of the focal nodular consolidation in the lateral basal segment of the left lower lobe. This remains most concerning for focal infectious or inflammatory etiology but should be followed radiographically to resolution would neoplasm especially given the underlying emphysema. 3. No new consolidation. 4. Severe emphysema with multifocal bronchial mucus plugging or debris. 5. Evidence of prior granulomatous infection. - sputum Culture -pseudomonas -nelson sensitive abx changed to Cefepime ID eval requested -pulmonology following CHRONIC SINUSITIS : noted in CT sinus on adequate ABx coverage LACTIC ACIDOSIS POC lactic acid: mild elevation 1.92. Suspect secondary to hypoxia no evidence of sepsis Lactic acid normalized with improvement of respiratory status given IV fluids MILDLY ELEVATED TROPONIN Troponin: 0.053. EKG: sinus tachycardia rate 107, no significant ST elevation. Hx elevated troponin last admission also, highest 0.078. Suspect demand ischemia from hypoxia. Pt denies CP. Hx ECHO 04/24/17: EF: 55-60% -Trend cardiac enzymes no ischemic change note in EKG ETOH ABUSE denies of any recent alcohol intake -no sign of withdrawal Neurotron ETOH withdrawal protocol D/stephanie -continue folic acid, thiamine, multivitamin DVT PROPHYLAXIS moderat to high risk -Heparin SQ DISPOSITION PT/OT eval prior to discharge home -Follows with Dr Owens for routine care Pulmonology follow up with Dr Gill Vital Signs: Date Time Temp Pulse Resp B/P (MAP) Pulse Ox O2 Delivery O2 Flow Rate FiO2 05/23/17 15:13 95 18 98 Nasal Cannula 3.0 05/23/17 15:10 36.7 97 18 144/79 (100) 97 Nasal Cannula 3.0 05/23/17 13:03 93 Nasal Cannula 2.0 05/23/17 13:01 36.6 92 22 123/77 (92) 93 Nasal Cannula 2.0 05/23/17 11:56 36.7 99 18 98 2.0 05/23/17 11:07 99 18 98 Nasal Cannula 2.0 05/23/17 09:00 Room Air 05/23/17 07:29 36.7 70 19 146/75 (98) 94 Nasal Cannula 2.0 05/23/17 07:00 86 18 98 Nasal Cannula 2.0 05/23/17 04:53 36.9 69 19 152/79 (103) 93 Nasal Cannula 2.0 05/23/17 04:00 Nasal Cannula 2.0 05/22/17 23:59 Nasal Cannula 2.0 05/22/17 23:33 36.7 96 21 150/86 (107) 94 Nasal Cannula 2.0 05/22/17 20:20 80 18 97 Nasal Cannula 2.0 05/22/17 20:00 Nasal Cannula 2.0 05/22/17 19:41 36.7 82 20 116/69 (85) 96 Nasal Cannula 2.0 05/22/17 19:13 80 18 97 Nasal Cannula 2.0 Lab Results: Results Past 24 Hours Test 05/23/17 05:23 Range/Units Sodium Level 140 136-145 mmol/L Potassium Level 4.0 3.5-5.1 mmol/L Chloride Level 103 98-107 mmol/L Carbon Dioxide Level 32 21-32 mmol/L Anion Gap 4.0 3-11 mmol/L Blood Urea Nitrogen 20 7-18 mg/dl Creatinine 0.86 0.60-1.40 mg/dl Est Creatinine Clear Calc Drug Dose 63.0 ml/min Estimated GFR () 99.0 Estimated GFR (Non- 85.4 BUN/Creatinine Ratio 22.8 10-20 Random Glucose 129 70-99 mg/dl Calcium Level 8.8 8.5-10.1 mg/dl Magnesium Level 2.0 1.8-2.4 mg/dl
--- NOTE | 2017-05-22 16:59 | Medical Consult ---
Consultation Date of Consultation: May 22, 2017. Attending Physician: Mercedes Wei M.D. Reason for Consultation: Pneumonia History of Present Illness 76-year-old male with history of severe COPD, alcohol abuse, with multiple admissions for exacerbations of COPD, respiratory failure, and pneumonia, last in April 2017. He is now readmitted with 1 week history of progressively worsening shortness of breath, production of thick green sputum, low-grade fever , weakness and fatigue. Had CT scan of the chest, read by me, which shows possibility of developing left lower lobe pneumonia. Sputum cultures have grown a fully sensitive Pseudomonas aeruginosa. Patient currently being treated with IV cefepime with improvement. Blood cultures have been negative. Has been tolerating antibiotic without apparent difficulty.. Past Medical/Surgical History Medical Problems: (1) COPD exacerbation Status: Acute (2) Failure of outpatient treatment Status: Acute (3) Pneumonia Status: Acute (4) Respiratory distress Status: Acute Medical Problems: (1) COPD (chronic obstructive pulmonary disease) (2) ETOH abuse Family History Patient reports no known family medical history. Social History Smoking Status: Former Smoker Smokeless Tobacco Use: No Alcohol Use: 5 beers a night Drug Use: none Marital Status: Housing Status: lives with family Allergies Coded Allergies: No Known Allergies (Unverified , 05/17/17) Current Inpatient Medications Current Inpatient Medications Medications (Trade) Dose Ordered Sig/Rigoberto Route Start Time Stop Time Status Last Admin Dose Admin Heparin Sodium (Porcine) (Heparin Sq 5000 Unit/0.5ml) 5,000 unit Q8 SQ 05/20/17 14:00 06/19/17 13:59 Future Hold 05/21/17 14:57 5,000 UNIT Acetaminophen (Tylenol Tab) 650 mg Q4H PRN PO 05/20/17 08:30 06/19/17 08:29 Al Hydrox/Mg Hydrox/Simethicone (Maalox Max Susp) 15 ml Q4H PRN PO 05/20/17 08:30 06/19/17 08:29 Magnesium Hydroxide (Milk Of Magnesia Susp) 30 ml Q12H PRN PO 05/20/17 08:30 06/19/17 08:29 Ondansetron HCl (Zofran Inj) 4 mg Q6H PRN IV 05/20/17 08:30 06/19/17 08:29 Nitroglycerin (Nitrostat Tab) 0.4 mg UD PRN SL 05/20/17 08:30 06/19/17 08:29 Polyethylene (Miralax Powder Packet) 17 gm DAILY PRN PO 05/20/17 08:30 06/19/17 08:29 Ioversol (Optiray 320) 125 ml UD PRN IV 05/20/17 08:30 05/24/17 08:29 Folic Acid (Folvite Tab) 1 mg DAILY PO 05/20/17 09:00 06/19/17 08:59 05/22/17 09:53 1 MG Roflumilast (Daliresp Tab) 500 mcg DAILY PO 05/20/17 09:00 06/19/17 08:59 05/22/17 09:53 500 MCG Thiamine HCl (Vitamin B-1 Tab) 100 mg DAILY PO 05/20/17 09:00 06/19/17 08:59 05/22/17 09:53 100 MG Ipratropium [place] (Atrovent 0.02% 0.5MG/2.5ML Neb) 0.5 mg Q4RWA INH 05/20/17 12:00 06/19/17 11:59 05/22/17 15:20 0.5 MG Levalbuterol (Xopenex 1.25MG/ 0.5ML Neb) 1.25 mg Q4RWA INH 05/20/17 12:00 06/19/17 11:59 05/22/17 15:19 1.25 MG Dornase Dane (Pulmozyme Inhalation Soln 2.5ml Amp) 2.5 ml BID INH 05/20/17 21:00 06/19/17 20:59 05/22/17 06:51 2.5 ML Lorazepam (Ativan Tab) 0.5 mg Q6 PRN PO 05/21/17 09:15 06/20/17 09:14 05/21/17 09:25 0.5 MG Methylprednisolone Sodium Succinate 60 mg/Syringe 0.96 ml @ 1.5 mls/min Q12H IV 05/21/17 22:00 06/23/17 08:00 05/22/17 09:52 1.5 MLS/MIN Salmeterol Xinafoate/ Fluticasone (Advair Diskus 500/50 Inh) 1 puff BID INH 05/21/17 21:00 06/20/17 20:59 05/22/17 09:53 1 PUFF Amoxicillin/ Clavulanate Potassium (Augmentin Tab) 875 mg BIDM PO 05/21/17 20:45 05/28/17 20:44 05/22/17 09:52 875 MG Cefepime HCl 1000 mg/Syringe 11 ml @ 5.5 mls/min Q12 IV 05/22/17 09:00 05/23/17 08:00 05/22/17 09:52 5.5 MLS/MIN Prednisone (PredniSONE TAB) 40 mg DAILY PO 05/23/17 09:00 06/22/17 08:59 Review of Systems All systems were reviewed and are negative except as per HPI Cardiovascular: + orthopnea Physical Exam Date Time Temp Pulse Resp B/P (MAP) Pulse Ox O2 Delivery O2 Flow Rate FiO2 05/22/17 15:58 36.8 94 22 112/67 (82) 96 Nasal Cannula 2.0 05/22/17 15:22 98 18 98 Nasal Cannula 2.0 05/22/17 12:00 Nasal Cannula 2.0 05/22/17 11:53 36.5 112 20 114/66 (82) 95 Nasal Cannula 2.0 05/22/17 11:05 117 18 97 Nasal Cannula 2.0 05/22/17 08:30 Nasal Cannula 2.0 05/22/17 07:57 36.6 76 22 153/82 (105) 96 Nasal Cannula 2.0 05/22/17 06:52 84 18 98 Nasal Cannula 2.0 05/22/17 04:00 Nasal Cannula 2.0 05/22/17 03:15 36.5 79 25 149/82 (104) 97 Nasal Cannula 2.0 05/21/17 23:59 Nasal Cannula 2.0 05/21/17 23:18 36.4 97 22 146/80 (102) 97 Nasal Cannula 2.0 05/21/17 20:00 Nasal Cannula 2.0 05/21/17 19:04 36.8 104 18 142/84 (103) 95 Nebulizer 05/21/17 19:03 88 20 98 Nasal Cannula 2.0 General Appearance: WD/WN, no apparent distress Head: normocephalic, atraumatic Eyes: normal inspection, EOMI, sclerae normal ENT: normal ENT inspection, hearing grossly normal, pharynx normal Neck: supple, no adenopathy, thyroid normal, trachea midline Respiratory/Chest: chest non-tender, lungs clear, no respiratory distress, no accessory muscle use, + decreased breath sounds Cardiovascular: regular rate, rhythm, no gallop, no murmur (About) Abdomen/GI: normal bowel sounds, non tender, soft, no organomegaly Back: normal inspection, no CVA tenderness Extremities/Musculoskelatal: normal inspection, no calf tenderness, non-tender Neurologic/Psych: alert, normal mood/affect (october), oriented x 3 Skin: normal color, warm/dry, no rash (Better now) Lymphatic: no adenopathy Laboratory Results Now RUN DATE: 05/22/17 [facility] LAB PAGE 1 RUN TIME: 1026 Specimen Inquiry PATIENT: JER BRADFORD LOC: C.2T U # : [id number] AGE/SX: 76/M ROOM: 33 REG : 05/20/[address]: Mercedes Wei M.D. : 1940 BED: 1 DIS : STATUS: ADM IN TLOC: SPEC #: [id number] IBAN: 05/20/17 STATUS: SERAFIN RENisha #: [id number] RECD: 05/20/[address] [facility] [address]: Mercedes Wei M.D. SOURCE: SPUTUM ENTR: 05/20/17 [facility] DR: Jer Desouza M.D. SPDESC: EXP.SPUTUM Pilgram, Hina Shearer Thomas W., MD ORDERED: SPUT CULT/SMR COMMENTS: Has Specimen Been Obtained/Collected? Y Procedure Result Verified Site GRAM STAIN Final 05/21/17 RESULT RARE EPITHELIAL CELLS MANY POLYS FEW GRAM POSITIVE COCCI SPUTUM CULTURE Final 05/22/17-6 Organism 1 PSEUDOMONAS AERUGINOSA QUANITY FEW SENS SENSITIVITY TO FOLLOW NORMAL CNOCEPCION LIGHT NORMAL CONCEPCION 1. PSEUDOMONAS AERUGINOSA Target Route Dose RX AB Cost M.I.C. IQ ------ ----- ------ -- ------ -------- - ------ CEFTAZIDIME S 4 CEFEPIME S <=4 IMIPENEM S <=1 AZTREONAM S <=4 GENTAMICIN S <=4 TOBRAMYCIN S <=4 AMIKACIN S <=16 CIPROFLOXACIN S <=1 LEVOFLOXACIN S <=2 PIP/TAZO S <=16 S = SENSITIVE I = INTERMEDIATE R = RESISTANT END OF REPORT Last 24 Hours Test 05/22/17 05:38 Sodium Level 137 mmol/L Potassium Level 4.1 mmol/L Chloride Level 105 mmol/L Carbon Dioxide Level 28 mmol/L Anion Gap 4.0 mmol/L Blood Urea Nitrogen 17 mg/dl Creatinine 0.85 mg/dl Est Creatinine Clear Calc Drug Dose 64.0 ml/min Estimated GFR () 99.5 Estimated GFR (Non- 85.8 BUN/Creatinine Ratio 20.1 Random Glucose 129 mg/dl Calcium Level 8.7 mg/dl Magnesium Level 1.9 mg/dl Patient Name: JER BRADFORD Unit Number: [id number] Dictated: 05/20/17925 Transcribed: 05/20/17925 PBS Printed Date/Time: [~ rep prt dt]/[~ rep prt tm] [~ rep ct labl] - [~ rep ct ivnm] [facility] [place] [address] Dictated: 05/20/17925 Transcribed: 05/20/17925 PBS Printed Date/Time: [~ rep prt dt]/[~ rep prt tm] [~ rep ct labl] - [~ rep ct ivnm] (CHEST FOR PE) ANGIO WITH CLINICAL HISTORY: 76 years-old Male presenting with ^Chest Pain, Eval for PE. TECHNIQUE: Multidetector CT angiography of the chest was performed after administration of intravenous contrast. 3-D volumetric and/or maximum intensity projection (MIP) images were subsequently reconstructed for review. IV contrast: 81 mL of Optiray 320. A dose lowering technique was used consistent with the principles of ALARA (as low as reasonably achievable). COMPARISON: 04/23/2017. CT DOSE (mGy.cm): The estimated cumulative dose is 222.42 mGy.cm. FINDINGS: [facility] topogram: Unremarkable. Pulmonary vasculature: The study is adequate for assessment of the pulmonary vascular tree. No filling defect within the pulmonary arteries to suggest embolus. Main pulmonary artery is not enlarged though the right and left pulmonary arteries are mildly enlarged. No flattening of the interventricular septum. No intracardiac intracardiac filling defect. No reflux of contrast into the hepatic veins. Remaining chest: On soft tissue windows, normal thyroid and thoracic inlet. Calcified mediastinal and right hilar lymph nodes suggest prior granulomatous infection or granulomatous disease. Atherosclerosis of the aorta. Normal heart size. Coronary artery calcification. No pericardial or pleural effusion. Parenchymal calcifications in the spleen could suggest prior granulomatous infection. On lung windows, severe emphysema with bronchial wall thickening. Subsegmental bronchial occlusion/debris in the lateral basal segment of the left lower lobe as seen on prior exam in the region of the focal nodular consolidation. This consolidation is stable to slightly decreased in size from prior with extension to the overlying pleura. Although this region is irregular and difficult to measure, maximal diameter measures 3 cm (series 4 image 58), previously 3.8 cm. No new focal consolidation. Bandlike opacity in the left upper lobe likely atelectasis or scarring (series 4 image 224). Scattered areas of bronchial debris noted elsewhere in the right lung. On bone windows, degenerative changes of the thoracic spine. IMPRESSION: 1. No evidence of pulmonary embolus. 2. Stable slight interval decrease size of the focal nodular consolidation in the lateral basal segment of the left lower lobe. This remains most concerning for focal infectious or inflammatory etiology but should be followed radiographically to resolution would neoplasm especially given the underlying emphysema. 3. No new consolidation. 4. Severe emphysema with multifocal bronchial mucus plugging or debris. 5. Evidence of prior granulomatous infection. Electronically signed by: Rosalino Norwood M.D. 05/20/2017 9:34 AM Dictated Date/Time: 05/20/2017 9:26 AM The status of this report is Signed. Draft = Not yet reviewed or approved by Radiologist. Signed = Reviewed and approved by Radiologist. <AttendingPhy>Mercedes Wei M.D.</AttendingPhy> <FamilyPhy>Abram Owens M.D.</FamilyPhy> <PrimaryPhy>Abram Owens M.D.</PrimaryPhy> <UnitNumber> [id number]</UnitNumber> <VisitNumber>[id number]</VisitNumber> <PatientName> JER BRADFORD JR</PatientName> <DateOfBirth>1940</DateOfBirth> < Location>C.2T</Location> <ServiceDate>05/20/17</ServiceDate> <MNE>ESINDI</MNE> < OrderingPhy>Mercedes Wei MD</OrderingPhy> <OrderingPhyMNE>f rep ord dr alexander</ OrderingPhyMNE> <DictatingPhyMNE>f rep dict dr alexander</DictatingPhyMNE> <CCListMNE> f rep ct michellee</CCListMNE> <AdmittingPhyMNE>f pt admit dr alexander</AdmittingPhyMNE> < AttendingPhyMNE>f pt attend dr alexander</AttendingPhyMNE> <ConsultingPhyMNE>f pt consult dr alexander</ConsultingPhyMNE> <FamilyPhyMNE>f pt fam dr alexander</FamilyPhyMNE> <OtherPhyMNE>f pt other dr alexander</OtherPhyMNE> < PrimaryPhyMNE>f pt prim care dr alexander</PrimaryPhyMNE> <ReferringPhyMNE>f pt referring dr alexander</ReferringPhyMNE> No eye 3 people Assessment & Plan 76-year-old male with long history of COPD now with exacerbation, possibly developing pneumonia, and now being evaluated for possible aspiration. Cultures growing fully sensitive Pseudomonas aeruginosa. Patient should be continued on IV cefepime for now, but could be transitioned to oral quinolone in the near future as long as he continues to improve. Will follow.
[2017-05-23] VITALS (12 sets, daily range): BP systolic 123–152; BP diastolic 75–80; PULSE 69–99; TEMP 36.4–36.9; O2SAT 93–99
[2017-05-23 06:57] LABS: BUN/CREATININE RATIO 22.8 (10-20); CALCIUM 8.8 mg/dl (8.5-10.1); CREATININE 0.86 mg/dl (0.60-1.40)
[2017-05-23] MEDS: IPRATROPIUM BROMIDE NEB SOLN 0.02% 2.5 ML VIAL INH SCH ×4 (06:58→19:10)
[2017-05-23] MEDS: LEVALBUTEROL 1.25MG/0.5ML NEB INH SCH ×4 (06:58→19:10)
[2017-05-23] MEDS: DORNASE ALFA (2500U) 2.5MG/2.5ML INH SCH ×2 (06:59→19:10)
[2017-05-23] MEDS: THIAMINE HCL 100 MG TAB PO SCH (09:06)
[2017-05-23] MEDS: ROFLUMILAST 500 MCG TAB PO SCH (09:06)
[2017-05-23] MEDS: FLUTICASONE/SALMETEROL (ADVAIR) 500/50 INH 14 PUFF INH SCH ×2 (09:06→20:17)
[2017-05-23] MEDS: AMOXICILLIN/CLAVULANATE TAB 875 MG TAB PO SCH (09:06)
[2017-05-23] MEDS: LACTOBACILLUS ACIDOPHILUS (FLORANEX) TAB PO SCH ×2 (12:05→16:45)
[2017-05-23] MEDS: HEPARIN SOD 5000 UNIT/0.5 ML CARP SQ SCH ×2 (14:00→22:05)
[2017-05-23] MEDS: LEVOFLOXACIN 500 MG TAB PO SCH (16:44)
--- NOTE | 2017-05-23 16:57 | Progress Note ---
Internal Med Progress Note Date of Service: May 23, 2017. Provider Documentation: SUBJECTIVE: breathing much better cough has improved no fever or chills OBJECTIVE: Vital Signs-as noted below Exam: General-this , Cachectic , no apparent distress, able to talk in sentences Eyes-sclera non icteric, PERRLA/EOMI ENT-moist oral mucosa , no exudate or erythema noted in oropharynx Neck-trachea midline , no thyromegaly Lungs-diminished breath sound , poor air entry , + crackles at base Heart-regular S1/S2 Abdomen-soft, non tender Extremities-no rash or deformity Neuro-AAO x3, no focal neurological deficit Lab data as noted below. ASSESSMENT & PLAN: ACUTE HYPOXEMIC RESPIRATORY FAILURE : multifactorial COPD EXACERBATION/with persistent LLB pneumonia /mucous plug symptom improved with Pulmonary toileting , IV steroids Neb tx -Xopenex/Atrovent nebs Q6H, prn Q2H Abx changed to Levaquin pulmonology consulted appreciate input LLL CONSOLIDATION/PNEUMONIA -PSEUDOMONAS CTA CHEST: IMPRESSION:1. No evidence of pulmonary embolus. 2. Stable slight interval decrease size of the focal nodular consolidation in the lateral basal segment of the left lower lobe. This remains most concerning for focal infectious or inflammatory etiology but should be followed radiographically to resolution would neoplasm especially given the underlying emphysema. 3. No new consolidation. 4. Severe emphysema with multifocal bronchial mucus plugging or debris. 5. Evidence of prior granulomatous infection. - sputum Culture -pseudomonas -nelson sensitive changed to PO Levaquin ; D/c IV Cefepime ID eval requested -pulmonology following CHRONIC SINUSITIS : noted in CT sinus on adequate ABx coverage LACTIC ACIDOSIS POC lactic acid: mild elevation 1.92. Suspect secondary to hypoxia no evidence of sepsis Lactic acid normalized with improvement of respiratory status given IV fluids MILDLY ELEVATED TROPONIN Troponin: 0.053. EKG: sinus tachycardia rate 107, no significant ST elevation. Hx elevated troponin last admission also, highest 0.078. Suspect demand ischemia from hypoxia. Pt denies CP. Hx ECHO 04/24/17: EF: 55-60% -Trend cardiac enzymes no ischemic change note in EKG ETOH ABUSE denies of any recent alcohol intake -no sign of withdrawal Neurotron ETOH withdrawal protocol D/stephanie -continue folic acid, thiamine, multivitamin DVT PROPHYLAXIS moderate to high risk -Heparin SQ DISPOSITION PT/OT eval prior to discharge home -Follows with Dr Owens for routine care Pulmonology follow up with Dr Gill Vital Signs: Date Time Temp Pulse Resp B/P (MAP) Pulse Ox O2 Delivery O2 Flow Rate FiO2 05/23/17 16:00 98 Nasal Cannula 3.0 05/23/17 15:13 95 18 98 Nasal Cannula 3.0 05/23/17 15:10 36.7 97 18 144/79 (100) 97 Nasal Cannula 3.0 05/23/17 13:03 93 Nasal Cannula 2.0 05/23/17 13:01 36.6 92 22 123/77 (92) 93 Nasal Cannula 2.0 05/23/17 11:56 36.7 99 18 98 2.0 05/23/17 11:07 99 18 98 Nasal Cannula 2.0 05/23/17 09:00 Room Air 05/23/17 07:29 36.7 70 19 146/75 (98) 94 Nasal Cannula 2.0 05/23/17 07:00 86 18 98 Nasal Cannula 2.0 05/23/17 04:53 36.9 69 19 152/79 (103) 93 Nasal Cannula 2.0 05/23/17 04:00 Nasal Cannula 2.0 05/22/17 23:59 Nasal Cannula 2.0 05/22/17 23:33 36.7 96 21 150/86 (107) 94 Nasal Cannula 2.0 05/22/17 20:20 80 18 97 Nasal Cannula 2.0 05/22/17 20:00 Nasal Cannula 2.0 05/22/17 19:41 36.7 82 20 116/69 (85) 96 Nasal Cannula 2.0 05/22/17 19:13 80 18 97 Nasal Cannula 2.0 Lab Results: Results Past 24 Hours Test 05/23/17 05:23 Range/Units Sodium Level 140 136-145 mmol/L Potassium Level 4.0 3.5-5.1 mmol/L Chloride Level 103 98-107 mmol/L Carbon Dioxide Level 32 21-32 mmol/L Anion Gap 4.0 3-11 mmol/L Blood Urea Nitrogen 20 7-18 mg/dl Creatinine 0.86 0.60-1.40 mg/dl Est Creatinine Clear Calc Drug Dose 63.0 ml/min Estimated GFR () 99.0 Estimated GFR (Non- 85.4 BUN/Creatinine Ratio 22.8 10-20 Random Glucose 129 70-99 mg/dl Calcium Level 8.8 8.5-10.1 mg/dl Magnesium Level 2.0 1.8-2.4 mg/dl
[2017-05-23] MEDS ORDERED: GABAPENTIN 600MG X1 DOSE PO SCH (22:00)
[2017-05-24] VITALS (8 sets, daily range): BP systolic 122–149; BP diastolic 75–82; PULSE 69–105; TEMP 36.3–36.5; O2SAT 93–99
[2017-05-24] MEDS: HEPARIN SOD 5000 UNIT/0.5 ML CARP SQ SCH ×3 (06:29→21:14)
[2017-05-24] MEDS: DORNASE ALFA (2500U) 2.5MG/2.5ML INH SCH ×2 (07:07→19:05)
[2017-05-24] MEDS: LEVALBUTEROL 1.25MG/0.5ML NEB INH SCH ×4 (07:07→19:05)
[2017-05-24] MEDS: IPRATROPIUM BROMIDE NEB SOLN 0.02% 2.5 ML VIAL INH SCH ×4 (07:07→19:05)
--- NOTE | 2017-05-24 07:11 | DIAGNOSTIC IMAGING REPORT ---
CHEST ONE VIEW PORTABLE HISTORY: 76 years-old Male pneumonia follow-up study to assess nodular opacity of the left lung base COMPARISON: Chest radiograph 05/21/2017, CTA chest 05/20/2017 and 04/23/2017, chest radiograph 03/07/2017 TECHNIQUE: Portable AP view of the chest FINDINGS: Cardiac silhouette is within normal limits. Atherosclerosis of the aorta. Severe Bullous emphysema with unchanged biapical pleural-parenchymal scarring and unchanged mild interstitial coarsening. There is a focal ill-defined 2.4 cm airspace opacity of the left lower lobe which appears unchanged. No overt pulmonary edema or additional new consolidation. Bones of the chest are grossly intact. IMPRESSION: 1. Unchanged focal 2.4 cm consolidation of the basal left lower lobe which has not significantly changed dating back to CTA of the chest 04/23/2017. Again, this may reflect pneumonia and/or scarring, however continued follow-up is recommended to exclude aggressive abnormality. 2. Severe bullous emphysema. The above report was generated using voice recognition software. It may contain grammatical, syntax or spelling errors. Electronically signed by: Bry Forrest M.D. 05/24/2017 7:09 AM Dictated Date/Time: 05/24/2017 7:05 AM
[2017-05-24] MEDS: LACTOBACILLUS ACIDOPHILUS (FLORANEX) TAB PO SCH ×3 (07:43→16:35)
[2017-05-24] MEDS: ROFLUMILAST 500 MCG TAB PO SCH (07:43)
[2017-05-24] MEDS: THIAMINE HCL 100 MG TAB PO SCH (07:44)
[2017-05-24] MEDS: FLUTICASONE/SALMETEROL (ADVAIR) 500/50 INH 14 PUFF INH SCH ×2 (07:44→21:13)
--- NOTE | 2017-05-24 08:32 | DIAGNOSTIC IMAGING REPORT ---
(BARIUM SWALLOW) ESOPHAGUS CLINICAL HISTORY: possible silent aspiration COMPARISON STUDY: Chest CT 05/20/2017. FLUOROSCOPY TIME: 1.9 minutes. 24 images submitted. FINDINGS: A small amount of silent aspiration demonstrated during the examination. The contours of the hypopharynx are within normal limits. The esophagus is normal in course, caliber, motility. No significant hiatus hernia. No gastroesophageal reflux. The patient was unable to swallow the barium tablet. IMPRESSION: 1. Small amount of silent aspiration identified during the examination. 2. Otherwise, normal barium swallow. 3. The patient was unable to swallow the barium tablet. Electronically signed by: Madan Henderson M.D. 05/24/2017 8:31 AM Dictated Date/Time: 05/24/2017 8:20 AM
--- NOTE | 2017-05-24 15:02 | DIAGNOSTIC IMAGING REPORT ---
VIDEO SWALLOW HISTORY: Aspiration seen on barium swallow. Pneumonia. Assess for aspiration, please schedule per order TECHNIQUE: Video fluoroscopic evaluation of swallowing was performed in the AP and lateral projections by the speech pathology staff. The patient is fed nectar-thick and thin liquid barium, a barium coated wafer, and barium pudding. FLUOROSCOPY TIME: 1.3 minutes. A cine loop submitted. COMPARISON STUDY: Barium swallow 05/24/2017. FINDINGS: There is normal hyoid excursion and epiglottic deflection. No significant penetration or aspiration identified. Swallowing function is within normal limits. IMPRESSION: 1. No aspiration identified on this study. 2. Please see the speech pathologist report for detailed findings and recommendations. Electronically signed by: Madan Henderson M.D. 05/24/2017 3:01 PM Dictated Date/Time: 05/24/2017 2:55 PM
[2017-05-24] MEDS: LEVOFLOXACIN 500 MG TAB PO SCH (16:35)
--- NOTE | 2017-05-24 17:28 | Infectious Disease Progress Nt ---
Progress Note Date of Service May 24, 2017. Subjective Pt evaluation today including: conversation w/ patient, physical exam, chart review, lab review, review of studies, conversation w/ talent development consultant, review of inpatient medication list Patient is slowly improving. Decreased cough, decreased shortness of breath. No fever. Continues to tolerate antibiotic without apparent difficulty. All Other Systems: Reviewed and Negative Medications Current Inpatient Medications Medications (Trade) Dose Ordered Sig/Rigoberto Route Start Time Stop Time Status Last Admin Dose Admin Heparin Sodium (Porcine) (Heparin Sq 5000 Unit/0.5ml) 5,000 unit Q8 SQ 05/20/17 14:00 06/19/17 13:59 Future hold 05/24/17 14:11 5,000 UNIT Acetaminophen (Tylenol Tab) 650 mg Q4H PRN PO 05/20/17 08:30 06/19/17 08:29 Al Hydrox/Mg Hydrox/Simethicone (Maalox Max Susp) 15 ml Q4H PRN PO 05/20/17 08:30 06/19/17 08:29 Magnesium Hydroxide (Milk Of Magnesia Susp) 30 ml Q12H PRN PO 05/20/17 08:30 06/19/17 08:29 Ondansetron HCl (Zofran Inj) 4 mg Q6H PRN IV 05/20/17 08:30 06/19/17 08:29 Nitroglycerin (Nitrostat Tab) 0.4 mg UD PRN SL 05/20/17 08:30 06/19/17 08:29 Polyethylene (Miralax Powder Packet) 17 gm DAILY PRN PO 05/20/17 08:30 06/19/17 08:29 Folic Acid (Folvite Tab) 1 mg DAILY PO 05/20/17 09:00 06/19/17 08:59 05/24/17 07:43 1 MG Roflumilast (Daliresp Tab) 500 mcg DAILY PO 05/20/17 09:00 06/19/17 08:59 05/24/17 07:43 500 MCG Thiamine HCl (Vitamin B-1 Tab) 100 mg DAILY PO 05/20/17 09:00 06/19/17 08:59 05/24/17 07:44 100 MG Ipratropium [place] (Atrovent 0.02% 0.5MG/2.5ML Neb) 0.5 mg Q4RWA INH 05/20/17 12:00 06/19/17 11:59 05/24/17 15:21 0.5 MG Levalbuterol (Xopenex 1.25MG/ 0.5ML Neb) 1.25 mg Q4RWA INH 05/20/17 12:00 06/19/17 11:59 05/24/17 15:21 1.25 MG Dornase Dane (Pulmozyme Inhalation Soln 2.5ml Amp) 2.5 ml BID INH 05/20/17 21:00 06/19/17 20:59 05/24/17 07:07 2.5 ML Lorazepam (Ativan Tab) 0.5 mg Q6 PRN PO 05/21/17 09:15 06/20/17 09:14 05/21/17 09:25 0.5 MG Salmeterol Xinafoate/ Fluticasone (Advair Diskus 500/50 Inh) 1 puff BID INH 05/21/17 21:00 06/20/17 20:59 05/24/17 07:44 1 PUFF Prednisone (PredniSONE TAB) 40 mg DAILY PO 05/23/17 09:00 06/22/17 08:59 05/24/17 07:44 40 MG Levofloxacin (Levaquin Tab) 500 mg DAILY@1700 PO 05/23/17 17:00 05/30/17 16:59 05/24/17 16:35 500 MG Lactobacillus Acidophilus (Floranex Tab) 4 tab TIDM PO 05/23/17 11:30 06/22/17 11:29 05/24/17 16:35 4 TAB Objective Vital Signs Date Time Temp Pulse Resp B/P (MAP) Pulse Ox O2 Delivery O2 Flow Rate FiO2 05/24/17 16:00 98 Nasal Cannula 2.0 05/24/17 15:21 74 18 98 Nasal Cannula 2.0 05/24/17 15:17 36.3 86 20 122/76 (91) 97 Nasal Cannula 3.0 05/24/17 11:17 69 18 98 Nasal Cannula 2.0 05/24/17 09:10 Nasal Cannula 2.0 05/24/17 07:10 71 18 97 Nasal Cannula 2.0 05/24/17 07:04 36.3 72 19 137/75 (95) 99 Nasal Cannula 2.0 05/24/17 00:15 Nasal Cannula 2.0 05/23/17 22:49 36.4 95 19 133/80 (97) 98 Nasal Cannula 2.0 05/23/17 20:57 84 18 99 Nasal Cannula 2.0 05/23/17 19:40 Nasal Cannula 2.0 Physical Exam General Appearance: WD/WN, no apparent distress Eyes: normal inspection, sclerae normal ENT: normal ENT inspection, pharynx normal Neck: supple, no adenopathy, thyroid normal, trachea midline Respiratory/Chest: chest non-tender, no respiratory distress, + decreased breath sounds Cardiovascular: regular rate, rhythm, no gallop, no murmur Abdomen: normal bowel sounds, non tender, soft, no organomegaly Extremities: non-tender, no calf tenderness Neurologic/Psychiatric: alert, oriented x 3 Skin: normal color, warm/dry, no rash Lymphatic: no adenopathy Assessment and Plan 76-year-old male with long history of COPD now with exacerbation with barium swallow showing silent aspiration. Patient appears to be improving on current antibiotics, would continue for now, will discuss outpatient antibiotic therapy with hospitalist service. Will follow.
--- NOTE | 2017-05-24 21:29 | Progress Note ---
Internal Med Progress Note Date of Service: May 24, 2017. Provider Documentation: SUBJECTIVE: continues to feel better minimum cough no SOB , or XIAO no fever or chills OBJECTIVE: Vital Signs-as noted below Exam: General-this , Cachectic , no apparent distress, able to talk in sentences Eyes-sclera non icteric, PERRLA/EOMI ENT-moist oral mucosa , no exudate or erythema noted in oropharynx Neck-trachea midline , no thyromegaly Lungs-diminished breath sound , poor air entry , + crackles at base Heart-regular S1/S2 Abdomen-soft, non tender Extremities-no rash or deformity Neuro-AAO x3, no focal neurological deficit Lab data as noted below. ASSESSMENT & PLAN: ACUTE HYPOXEMIC RESPIRATORY FAILURE : improved multifactorial COPD EXACERBATION/with persistent LLB pneumonia /mucous plug symptom improved with Pulmonary toileting , IV steroids Neb tx -Xopenex/Atrovent nebs Q6H, prn Q2H Abx changed to Levaquin pulmonology consulted appreciate input LLL CONSOLIDATION/PNEUMONIA -PSEUDOMONAS CTA CHEST: IMPRESSION:1. No evidence of pulmonary embolus. 2. Stable slight interval decrease size of the focal nodular consolidation in the lateral basal segment of the left lower lobe. This remains most concerning for focal infectious or inflammatory etiology but should be followed radiographically to resolution would neoplasm especially given the underlying emphysema. 3. No new consolidation. 4. Severe emphysema with multifocal bronchial mucus plugging or debris. 5. Evidence of prior granulomatous infection. - sputum Culture -pseudomonas -nelson sensitive changed to PO Levaquin ; Day # 2 completed total 10 days tx ID eval appreciated CONCERN FOR ASPIRATION : appreciate speech eval Barium swallow shows silent aspiration VFSS -no aspiration noted diet resumed AHA with regular consistency no further speech eval needed - CHRONIC SINUSITIS : noted in CT sinus on adequate ABx coverage LACTIC ACIDOSIS POC lactic acid: mild elevation 1.92. Suspect secondary to hypoxia no evidence of sepsis Lactic acid normalized with improvement of respiratory status given IV fluids MILDLY ELEVATED TROPONIN Troponin: 0.053. EKG: sinus tachycardia rate 107, no significant ST elevation. Hx elevated troponin last admission also, highest 0.078. Suspect demand ischemia from hypoxia. Pt denies CP. Hx ECHO 04/24/17: EF: 55-60% -Trend cardiac enzymes no ischemic change note in EKG ETOH ABUSE denies of any recent alcohol intake -no sign of withdrawal Neurotron ETOH withdrawal protocol D/stephanie -continue folic acid, thiamine, multivitamin DVT PROPHYLAXIS moderate to high risk -Heparin SQ DISPOSITION possible discharge home tomorrow Pulmonology follow up with Dr Gill Vital Signs: Date Time Temp Pulse Resp B/P (MAP) Pulse Ox O2 Delivery O2 Flow Rate FiO2 05/24/17 19:08 87 18 98 Nasal Cannula 2.0 05/24/17 16:00 98 Nasal Cannula 2.0 05/24/17 15:21 74 18 98 Nasal Cannula 2.0 05/24/17 15:17 36.3 86 20 122/76 (91) 97 Nasal Cannula 3.0 05/24/17 11:17 69 18 98 Nasal Cannula 2.0 05/24/17 09:10 Nasal Cannula 2.0 05/24/17 07:10 71 18 97 Nasal Cannula 2.0 05/24/17 07:04 36.3 72 19 137/75 (95) 99 Nasal Cannula 2.0 05/24/17 00:15 Nasal Cannula 2.0 05/23/17 22:49 36.4 95 19 133/80 (97) 98 Nasal Cannula 2.0
[2017-05-24] MEDS ORDERED: LVQ500 PO (22:35)
--- NOTE | 2017-05-24 22:40 | Discharge Instructions ---
Discharge Instructions Date of Service May 24, 2017. Admission Reason for Admission: Copd Exacerbation, Pneumonia, Respiratory Distress Discharge Discharge Diagnosis / Problem: COPD EXACERBATION /ACUTE ON CHRONIC RESP FAILURE /PNEUMONIA Discharge Goals Goal(s): Decrease discomfort, Increase independence, Improve disease control, Diagnostic testing, Therapeutic intervention Activity Recommendations Activity Limitations: resume your previous activity . Instructions / Follow-Up Instructions / Follow-Up HOSPITAL FOLLOW UP : 05/26/2017 11:40 AM Paul Ramirez MD Internal Medicine [facility] PULMONOLOGY FOLLOW UP WITH DR ALONSO IN 2-3 WEEKS , PLEASE CALL OFFICE FOR APPOINTMENT Current Hospital Diet Patient's current hospital diet: AHA Diet (Heart Healthy) Discharge Diet Recommended Diet: AHA Diet (Heart Healthy) Pending Studies Studies pending at discharge: no Laboratory Results Hemoglobin A1c Test 04/23/17 12:10 Range/Units Estimated Average Glucose 97 mg/dl Hemoglobin A1c 5.0 4.5-5.6 % Lipid Panel Test 04/24/17 05:58 Range/Units Triglycerides Level 50 0-150 mg/dl Cholesterol Level 102 0-200 mg/dl HDL Cholesterol 52 mg/dl Cholesterol/HDL Ratio 2.0 LDL Cholesterol, Calculated 40 mg/dl Medical Emergencies . Who to Call and When: Medical Emergencies: If at any time you feel your situation is an emergency, please call 911 immediately. . Non-Emergent Contact Non-Emergency issues call your: Primary Care Provider . . "Provider Documentation" section prepared by Mercedes Wei. . VTE Core Measure Inpt VTE Proph given/why not?: Unfractionated heparin SQ
[2017-05-25] MEDS: HEPARIN SOD 5000 UNIT/0.5 ML CARP SQ SCH (06:04)
[2017-05-25 07:09] VITALS: BP 139/72; PULSE 73; TEMP 36.6; O2SAT 96
[2017-05-25] MEDS: IPRATROPIUM BROMIDE NEB SOLN 0.02% 2.5 ML VIAL INH SCH (07:11)
[2017-05-25] MEDS: LEVALBUTEROL 1.25MG/0.5ML NEB INH SCH (07:12)
[2017-05-25] MEDS: DORNASE ALFA (2500U) 2.5MG/2.5ML INH SCH (07:21)
[2017-05-25 07:24] VITALS: PULSE 82; O2SAT 97
[2017-05-25 07:26] VITALS: BP 139/72; PULSE 82; TEMP 36.6; O2SAT 97
[2017-05-25] MEDS: THIAMINE HCL 100 MG TAB PO SCH (07:58)
[2017-05-25] MEDS: ROFLUMILAST 500 MCG TAB PO SCH (07:58)
[2017-05-25] MEDS: LACTOBACILLUS ACIDOPHILUS (FLORANEX) TAB PO SCH (07:58)
[2017-05-25] MEDS: FLUTICASONE/SALMETEROL (ADVAIR) 500/50 INH 14 PUFF INH SCH (07:58)
[2017-05-25] MEDS ORDERED: LEVOFLOXACIN 500 MG TAB PO SCH (08:00)
--- NOTE | 2017-05-25 09:21 | Progress Note ---
Subjective Date of Service: May 25, 2017. Subjective Pt evaluation today including: conversation w/ patient, physical exam, lab review, review of studies, review of inpatient medication list Saw/examined the patient in room 406 He's doing well oxygen is on, he has some expiratory wheezing; states he has oxygen at home He feels much better denies chest pain/heaviness +cough, +sputum production Problem List Medical Problems: (1) COPD exacerbation Status: Acute (2) Failure of outpatient treatment Status: Acute (3) Pneumonia Status: Acute (4) Respiratory distress Status: Acute Review of Systems Constitutional: No fever, No chills Respiratory: + cough, + sputum, + wheezing, + shortness of breath, No dyspnea on exertion, No dyspnea at rest, No hemoptysis Cardiac: No chest pain, No edema, No palpitations Abdomen: No pain, No nausea, No vomiting, No diarrhea Heme: No abnormal bleeding/bruising Medications Current Inpatient Medications Medications (Trade) Dose Ordered Sig/Rigoberto Route Start Time Stop Time Status Last Admin Dose Admin Heparin Sodium (Porcine) (Heparin Sq 5000 Unit/0.5ml) 5,000 unit Q8 SQ 05/20/17 14:00 06/19/17 13:59 Future hold 05/25/17 06:04 5,000 UNIT Acetaminophen (Tylenol Tab) 650 mg Q4H PRN PO 05/20/17 08:30 06/19/17 08:29 Al Hydrox/Mg Hydrox/Simethicone (Maalox Max Susp) 15 ml Q4H PRN PO 05/20/17 08:30 06/19/17 08:29 Magnesium Hydroxide (Milk Of Magnesia Susp) 30 ml Q12H PRN PO 05/20/17 08:30 06/19/17 08:29 Ondansetron HCl (Zofran Inj) 4 mg Q6H PRN IV 05/20/17 08:30 06/19/17 08:29 Nitroglycerin (Nitrostat Tab) 0.4 mg UD PRN SL 05/20/17 08:30 06/19/17 08:29 Polyethylene (Miralax Powder Packet) 17 gm DAILY PRN PO 05/20/17 08:30 06/19/17 08:29 Folic Acid (Folvite Tab) 1 mg DAILY PO 05/20/17 09:00 1/13/18 08:59 05/25/17 07:58 1 MG Roflumilast (Daliresp Tab) 500 mcg DAILY PO 05/20/17 09:00 06/19/17 08:59 05/25/17 07:58 500 MCG Thiamine HCl (Vitamin B-1 Tab) 100 mg DAILY PO 05/20/17 09:00 06/19/17 08:59 05/25/17 07:58 100 MG Ipratropium [place] (Atrovent 0.02% 0.5MG/2.5ML Neb) 0.5 mg Q4RWA INH 05/20/17 12:00 06/19/17 11:59 05/25/17 07:11 0.5 MG Levalbuterol (Xopenex 1.25MG/ 0.5ML Neb) 1.25 mg Q4RWA INH 05/20/17 12:00 06/19/17 11:59 05/25/17 07:12 1.25 MG Dornase Dane (Pulmozyme Inhalation Soln 2.5ml Amp) 2.5 ml BID INH 05/20/17 21:00 06/19/17 20:59 05/25/17 07:21 2.5 ML Lorazepam (Ativan Tab) 0.5 mg Q6 PRN PO 05/21/17 09:15 06/20/17 09:14 05/21/17 09:25 0.5 MG Salmeterol Xinafoate/ Fluticasone (Advair Diskus 500/50 Inh) 1 puff BID INH 05/21/17 21:00 06/20/17 20:59 05/25/17 07:58 1 PUFF Prednisone (PredniSONE TAB) 40 mg DAILY PO 05/23/17 09:00 06/22/17 08:59 05/25/17 07:58 40 MG Lactobacillus Acidophilus (Floranex Tab) 4 tab TIDM PO 05/23/17 11:30 06/22/17 11:29 05/25/17 07:58 4 TAB Levofloxacin (Levaquin Tab) 500 mg DAILY PO 05/25/17 08:00 05/30/17 16:59 05/25/17 07:58 500 MG Objective Vital Signs Date Time Temp Pulse Resp B/P (MAP) Pulse Ox O2 Delivery O2 Flow Rate FiO2 05/25/17 08:33 Nasal Cannula 2.0 05/25/17 07:26 36.6 82 18 97 Nasal Cannula 05/25/17 07:24 82 18 97 Nasal Cannula 2.0 05/25/17 07:09 36.6 73 18 139/72 (94) 96 Nasal Cannula 2.0 05/25/17 00:00 Nasal Cannula 2.0 05/24/17 23:45 36.5 105 20 149/82 (104) 93 Room Air 05/24/17 19:08 87 18 98 Nasal Cannula 2.0 05/24/17 16:00 98 Nasal Cannula 2.0 05/24/17 15:21 74 18 98 Nasal Cannula 2.0 05/24/17 15:17 36.3 86 20 122/76 (91) 97 Nasal Cannula 3.0 05/24/17 11:17 69 18 98 Nasal Cannula 2.0 05/24/17 09:10 Nasal Cannula 2.0 Physical Exam General Appearance: no apparent distress Respiratory/Chest: no respiratory distress, no accessory muscle use, + wheezing (mild end expiratory wheezing diffusely) Cardiovascular: regular rate, rhythm, no edema, no murmur Abdomen: normal bowel sounds, non tender, soft Extremities: normal range of motion, non-tender, normal inspection, no pedal edema, no calf tenderness Neurologic/Psychiatric: no motor/sensory deficits, alert, normal mood/affect Skin: normal color Lymphatic: no adenopathy Assessment and Plan This is a 76 year old male with a PMH of severe COPD on intermittent O2 at home Severe COPD exacerbation secondary to CAP patient is on Levaquin sputum culture = Pseudomonas appreciate ID and pulm input would benefit from a prednisone taper repeat CXR in 7 days or so f/u with PCP and pulmonology as outpatient Aspiration Concern speech eval performed barium swallow suggest some silent aspiration but video swallow study suggested no aspiration continue current diet, no further speech eval necessary Chronic Sinusitis CT sinuses noted chronic sinusitis monitor Mild Lactic Acidosis likely secondary to hypoxia underlying pneumonia also playing a part IVFs given and improved Mild Troponin Elevation multifactorial; hypoxia and sinus tachycardia as well as pneumonia playing a part reached peak of 0.13, but trending down afterwards echo last month shows good wall motion and normal LVEF Hx. of EtOH abuse continue folic acid, thiamine, multivitamin DVT ppx subq heparin FULL CODE
[2017-05-25] MEDS ORDERED: PRD20 PO (09:22)
--- NOTE | 2017-05-25 09:26 | Discharge Instructions ---
Discharge Instructions Date of Service May 25, 2017. Admission Reason for Admission: Copd Exacerbation, Pneumonia, Respiratory Distress Discharge Discharge Diagnosis / Problem: Acute COPD Exacerbation, Pneumonia Discharge Goals Goal(s): Decrease discomfort, Improve function, Diagnostic testing, Therapeutic intervention Activity Recommendations Activity Limitations: resume your previous activity . Instructions / Follow-Up Instructions / Follow-Up Please follow-up with Dr. Ramirez on May 26 at 11:40AM Please follow-up with Dr. Gill, pulmonology in 1 week You should repeat a chest x-ray in one week You will be discharged with Levaquin (antibiotic) for your pneumonia You will be discharged with prednisone (steroid) for your COPD * take four tablets on 05/26, 05/27 * take three tablets on 05/28, 05/29 * take two tablets on 05/30, 05/31 * take one tablet on 06/01, 06/02 Current Hospital Diet Patient's current hospital diet: AHA Diet (Heart Healthy) Discharge Diet Recommended Diet: AHA Diet (Heart Healthy) Pending Studies Studies pending at discharge: no Laboratory Results Hemoglobin A1c Test 04/23/17 12:10 Range/Units Estimated Average Glucose 97 mg/dl Hemoglobin A1c 5.0 4.5-5.6 % Lipid Panel Test 04/24/17 05:58 Range/Units Triglycerides Level 50 0-150 mg/dl Cholesterol Level 102 0-200 mg/dl HDL Cholesterol 52 mg/dl Cholesterol/HDL Ratio 2.0 LDL Cholesterol, Calculated 40 mg/dl Medical Emergencies . Who to Call and When: Medical Emergencies: If at any time you feel your situation is an emergency, please call 911 immediately. . Non-Emergent Contact Non-Emergency issues call your: Primary Care Provider . . "Provider Documentation" section prepared by Ryland Watson. . VTE Core Measure Inpt VTE Proph given/why not?: Unfractionated heparin SQ
--- NOTE | 2017-05-25 19:23 | Discharge Summary ---
Discharge Summary Date of Service May 25, 2017. Discharge Summary Admission Date: May 20, 2017 at 08:23 Discharge Date: May 25, 2017 Discharge Disposition: Home Principal Diagnosis: Acute COPD Exacerbation Pneumonia Medication Reconciliation New Medications: Levofloxacin (Levofloxacin) 500 Mg Tab 500 MG PO DAILY for 7 Days, #7 TAB Prednisone (Prednisone) 20 Mg Tab 40 MG PO UD for 8 Days, #20 TAB Continued Medications: Albuterol Sulf (Albuterol Sulfate) 2.5 Mg/3 Ml Nebu 1 VIAL INH Q4 for SOB/Wheezing Albuterol Sulfate (Proair Respiclick) 108 Mcg/Act Aer 2 PUFF PO Q4H PRN for SOB/Wheezing Fluticasone Prop/Salmeterol (Advair Diskus 250/50 60 Dose) 1 Ea Aerp 1 PUFF INH BID, INHALER Folic Acid (Folvite) 1 Mg Tab 1 MG PO DAILY, TAB Roflumilast (Daliresp) 500 Mcg Tab 1 TAB PO DAILY for 30 Days, #30 TAB 3 Refills Thiamine Hcl (Vitamin B-1) 100 Mg Tab 100 MG PO DAILY, TAB Admission Information HPI (per Admitting provider): Pt is 76 y/o M with PMH COPD, ETOH abuse presented to ER with c/o increasing SOB. Pt states the past week with increased SOB, SOB with getting dressed and can't walk a couple of steps in his home with SOB. Describes chest tightness with this SOB. Pt on 2L O2 NC and 4L with exertion. He states past several days tried increasing O2 to 4L continuously without relief. Last night he used his ProAir 10 times and used his albuterol nebulizer 3 times without relief of SOB. Reports cough green color sputum past 5 days. Pt Hx smoker 4ppd, quitting 1 year ago. He reports drinking 5 beers a night and last drank 5 beers last evening. Denies fever/chills, diaphoresis, N/V/D/C, GIMENEZ, dizziness, syncope, vision changes, neck pain, CP, orthopnea, palpitations, hemoptysis, sore throat , choking, rhinorrhea, abdominal pain, extremity weakness, extremity edema, rashes, urinary symptoms. Pt was seen in ER 05/17/17 and given neb d/c home. Pt hospitalized 04/23/17- for COPD exacerbation and pneumonia. Today in ER P: 111-128, R: 24-30, 94% on 2L O2, no leukocytosis. Troponin: 0.053. CXR: Persistent left basilar opacity. An infectious etiology cannot be excluded, although this was present on prior CT from 04/23/2017. 2. Emphysema. 3. No new focal infiltrate. Pt given cefepime, DuoNeb, solumedrol. He reports feeling like his breathing is better after the breathing treatment. Physical Exam (per Admitting): General Appearance: + thin, + pertinent finding (chronic ill appearing, no apparent distress at this time, sitting up in bed) Head: normocephalic, atraumatic Eyes: normal inspection, PERRL, EOMI, sclerae normal ENT: hearing grossly normal, pharynx normal, + pertinent finding (mucous membranes moist) Neck: supple, no JVD, trachea midline Respiratory/Chest: no accessory muscle use (becomes SOB after couple of sentences), + decreased breath sounds (throughout), + wheezing (throughout) Cardiovascular: + tachycardia (regular rhythm ) Abdomen/GI: normal bowel sounds, non tender, soft Extremities/Musculoskelatal: normal inspection, no pedal edema, normal range of motion, non-tender Neurologic/Psych: alert, normal mood/affect, oriented x 3 Skin: normal color, warm/dry Hospital Course This is a 76 year old male with a PMH of severe COPD on intermittent O2 at home Severe COPD exacerbation secondary to CAP patient is on Levaquin sputum culture = Pseudomonas appreciate ID and pulm input would benefit from a prednisone taper repeat CXR in 7 days or so f/u with PCP and pulmonology as outpatient Aspiration Concern speech eval performed barium swallow suggest some silent aspiration but video swallow study suggested no aspiration continue current diet, no further speech eval necessary Chronic Sinusitis CT sinuses noted chronic sinusitis monitor Mild Lactic Acidosis likely secondary to hypoxia underlying pneumonia also playing a part IVFs given and improved Mild Troponin Elevation multifactorial; hypoxia and sinus tachycardia as well as pneumonia playing a part reached peak of 0.13, but trending down afterwards echo last month shows good wall motion and normal LVEF Hx. of EtOH abuse continue folic acid, thiamine, multivitamin DVT ppx subq heparin FULL CODE Total time spent on discharge = 40 minutes This includes examination of the patient, discharge planning, medication reconciliation, and communication with other providers. Discharge Instructions Please follow-up with Dr. Ramirez on May 26 at 11:40AM Please follow-up with Dr. Gill, pulmonology in 1 week You should repeat a chest x-ray in one week You will be discharged with Levaquin (antibiotic) for your pneumonia You will be discharged with prednisone (steroid) for your COPD * take four tablets on 05/26, 05/27 * take three tablets on 05/28, 05/29 * take two tablets on 05/30, 05/31 * take one tablet on 06/01, 06/02
== END 2017-05-25 11:06 | disposition home or self-care (01) | DRG 190 ==
LOC: EDBD 06:13 → C.EDB 06:15 → C.2T 08:23 → ENRESERV 08:43 → CANRESERV 05-23 10:32 → ENRESERV 05-23 11:17 → C.4E 05-23 12:41
PROVIDERS: ADMIT Hospitalist; ATTEND Family Medicine
DX: J44.1 Chronic obstructive pulmonary disease with (acute) exacerbation (principal); J96.01 Acute respiratory failure with hypoxia; J15.1 Pneumonia due to Pseudomonas; E87.2 Acidosis; J44.0 Chronic obstructive pulmonary disease with (acute) lower respiratory infection; J32.9 Chronic sinusitis, unspecified; Z87.891 Personal history of nicotine dependence; Z79.899 Other long term (current) drug therapy; F10.10 Alcohol abuse, uncomplicated; Z99.81 Dependence on supplemental oxygen

== ENCOUNTER → 2017-06-02 | Outpatient (CLI) | payer OTHER ==
[~2017-06-02] MED LIST changes: +ACET-1256 PO; +ALBINS INH; +ALBINS/ NEB; +ATRINS INH; +CPR500 PO; -FLV1 PO; +FOLI1TAB8 PO; +LEVO-18 PO; +LEVO-366 PO; +LVQ500 PO; +PRD20 PO; +PRED-301 PO; +PRED10TA PO; +PRED50TA PO; +THIA100T10 PO; -THM100 PO; +XPNINS1255 INH
--- NOTE | 2017-06-02 14:18 | DIAGNOSTIC IMAGING REPORT ---
CHEST 2 VIEWS ROUTINE HISTORY: PNEUMONIA OF LEFT LOWER LOBE DUE TO KLEBSIELLA PNE COMPARISON: Chest 05/24/2017. FINDINGS: Improved aeration within the left basilar airspace opacity. The lungs remain hyperexpanded with apical predominant emphysematous changes. No new focal lung consolidations. No pleural effusions. No pneumothorax. The heart is normal in size. IMPRESSION: Improved aeration within the left basilar airspace opacity consistent with a resolving pneumonia. An additional one month chest x-ray follow-up is recommended to ensure complete resolution. Electronically signed by: Madan Henderson M.D. 06/02/2017 2:17 PM Dictated Date/Time: 06/02/2017 2:15 PM
== END | disposition home or self-care (01) ==
LOC: C.RAD 13:40
PROVIDERS: ATTEND Internal Medicine
DX: J15.0 Pneumonia due to Klebsiella pneumoniae (principal)

== ENCOUNTER 2017-06-13 18:23 | Emergency (ER) | payer OTHER ==
[~2017-06-13] VITALS: Ht 170.2 cm; Wt 60.4 kg
[~2017-06-13 18:23] MED LIST changes: -ACET-1256 PO; -ALBINS/ NEB; -ATRINS INH; -CPR500 PO; -LEVO-18 PO; -LEVO-366 PO; -PRED-301 PO; -PRED10TA PO; -PRED50TA PO; -THIA100T10 PO; +THIA100T11 PO; -XPNINS1255 INH
[2017-06-13 18:26] VITALS: TEMP 36.4; Ht 170.2 cm; Wt 60.4 kg
[2017-06-13] MEDS ORDERED: ALBUT/IPRATROP 3MG/0.5MG NEB 3 ML VIAL INH STA (18:44)
--- NOTE | 2017-06-13 19:09 | DIAGNOSTIC IMAGING REPORT ---
CHEST ONE VIEW PORTABLE CLINICAL HISTORY: Evaluate Fever/Sepsis COMPARISON STUDY: Chest radiograph June 02, 2017. FINDINGS: Severe emphysema is noted. Left hilar enlargement is due to dilatation of the central pulmonary arteries. Cardiac size is normal. There is no pneumothorax. Left basilar opacity has slightly increased since exam June 02, 2017. Right lung is clear. IMPRESSION: 1. Slight increase in left basilar opacity. This may reflect pneumonia. However, continued radiographic follow-up is recommended to exclude the possibility of an underlying neoplasm. 2. Severe emphysema. Electronically signed by: Charles Littlejohn M.D. 06/13/2017 7:07 PM Dictated Date/Time: 06/13/2017 7:04 PM
[2017-06-13 19:17] LABS: HEMATOCRIT 40.1 % (42-52); HEMOGLOBIN 13.7 g/dL (14.0-18.0); IG# 0.04 K/uL (0.00-0.02); LYMPH % 4.7 %; LYMPH ABS # 0.33 K/uL (1.2-3.4); MEAN CORPUSCULAR HEMOGLOBIN 34.5 pg (25-34); MEAN CORPUSCULAR HGB CONC 34.2 g/dl (32-36); MEAN PLATELET VOLUME 9.3 fL (7.4-10.4); MONO % 2.1 %; MONO ABS # 0.15 K/uL (0.11-0.59); NEUT % 92.6 %; PLATELET COUNT 163 K/uL (130-400); RED CELL DISTRIBUTION WIDTH CV 12.6 % (11.5-14.5); WHITE BLOOD COUNT 7.02 K/uL (4.8-10.8)
[2017-06-13] MEDS ORDERED: PRED-301 PO (19:24)
[2017-06-13 19:27] LABS: PTT PATIENT 22.6 SECONDS (21.0-31.0)
[2017-06-13 19:35] VITALS: O2SAT 99
[2017-06-13 19:35] LABS: ALBUMIN 3.1 gm/dl (3.4-5.0); ALT/SGPT 24 U/L (12-78); AST/SGOT 19 U/L (15-37); BLOOD UREA NITROGEN 12 mg/dl (7-18); CALCIUM 8.7 mg/dl (8.5-10.1); CARBON DIOXIDE 26 mmol/L (21-32); CREATININE 1.04 mg/dl (0.60-1.40); GLUCOSE 161 mg/dl (70-99); LIPASE 150 U/L (73-393); POTASSIUM 4.2 mmol/L (3.5-5.1); SODIUM 133 mmol/L (136-145)
[2017-06-13 19:40] LABS: ALKALINE PHOSPHATASE 82 U/L (45-117); CKMB 1.4 ng/ml (0.5-3.6); TOTAL PROTEIN 6.6 gm/dl (6.4-8.2)
[2017-06-13] MEDS ORDERED: LEVO-366 PO (20:17)
--- NOTE | 2017-06-13 20:19 | EMERGENCY ROOM VISIT NOTE ---
History Report prepared by Fab: Zac Salcido Under the Supervision of: Dr. Lazaro Ford D.O. First contact with patient: 18:34 Chief Complaint: RESPIRATORY PROBLEMS Stated Complaint: COUGH, RESPIRATORY Nursing Triage Summary: exac of COPD pt has been sob for 2 months pt reports "worse since weather turned colder about 1 week" pt using inhaler productive cough with white sputum History of Present Illness The patient is a 76 year old male with a history of COPD who presents to the Emergency Room with complaints of worsening respiratory problems over the past 2 months. He states that he has been in and out of here since last month for COPD. The patient says that despite his home oxygen, he has been unable to sleep the past few nights due to his shortness of breath and chest pain. He notes that the discomfort in his chest is a "tightness", and his shortness of breath and chest pain worsen with exertion. The patient adds that he has been dizzy at times. The patient says that intermittently he has brought up phlegm with his cough. Per the patient's family, the patient has been dealing with pneumonia for the past 3 months. The patient states that he quit smoking 15 months ago. He adds that he has no history of heart disease, and has never had a stress test. The patient denies any recent weight loss. He notes that he has been using his nebulizer at home with minimal relief. The patient says that he has been done with his Levaquin for a few weeks. Source of History: patient, family Onset: Past 2 months Position: other (global - respiratory problems) Symptom Intensity: difficulty sleeping at night Timing: worsening Modifying Factors (Relieving): exertion Associated Symptoms: + cough (with some phlegm), + chest pain, + SOB Note: Associated symptoms: Dizzy at times. Denies recent weight loss. Review of Systems See HPI for pertinent positives & negatives. A total of 10 systems reviewed and were otherwise negative. Past Medical & Surgical Medical Problems: (1) COPD (chronic obstructive pulmonary disease) (2) ETOH abuse Family History Patient reports no known family medical history. Social History Smoking Status: Former Smoker Alcohol Use: occasionally Drug Use: none Marital Status: Housing Status: lives with family Current/Historical Medications Scheduled Albuterol Sulf (Albuterol Sulfate), 1 VIAL INH Q4 Fluticasone Prop/Salmeterol (Advair Diskus 250/50 60 Dose), 1 PUFF INH BID Folic Acid (Folvite), 1 MG PO DAILY Prednisone (Prednisone), 5 MG PO DAILY Roflumilast (Daliresp), 1 TAB PO DAILY Thiamine Hcl (Vitamin B-1), 100 MG PO DAILY Scheduled PRN Albuterol Sulfate (Proair Respiclick), 2 PUFF PO Q4H PRN for SOB/Wheezing Allergies Coded Allergies: No Known Allergies (Unverified , 05/17/17) Physical Exam Vital Signs Date Time Temp Pulse Resp B/P (MAP) Pulse Ox O2 Delivery O2 Flow Rate FiO2 06/13/17 19:35 99 Nasal Cannula 2.0 06/13/17 19:33 79 22 130/72 95 Room Air 06/13/17 19:14 76 06/13/17 18:29 94 Room Air 06/13/17 18:26 36.4 106 20 93 Room Air Physical Exam CONSTITUTIONAL/VITAL SIGNS: Reviewed / noted above. GENERAL: Non-toxic in appearance. INTEGUMENTARY: Warm, dry, and Coin. HEAD: Normocephalic. EYES: without scleral icterus or trauma. ENT/OROPHARYNX: clear and moist. LYMPHADENOPATHY/NECK: Is supple without lymphadenopathy or meningismus. RESPIRATORY: Diminished breath sounds bilaterally. No increased work of breathing, no apparent distress. CARDIOVASCULAR: Regular rate and rhythm. GI/ABDOMEN: Soft and nontender. No organomegaly or pulsatile mass. No rebound or guarding. Normal bowel sounds. EXTREMITIES: Warm and well perfused. BACK: No CVA tenderness. NEUROLOGICAL: Intact without focal deficits. PSYCHIATRIC: normal affect. MUSCULOSKELETAL: Normally developed with good muscle tone. Medical Decision & Procedures ER Provider Diagnostic Interpretation: X ray results and stated below per my interpretation and radiology interpretation. CHEST ONE VIEW PORTABLE CLINICAL HISTORY: Evaluate Fever/Sepsis COMPARISON STUDY: Chest radiograph June 02, 2017. FINDINGS: Severe emphysema is noted. Left hilar enlargement is due to dilatation of the central pulmonary arteries. Cardiac size is normal. There is no pneumothorax. Left basilar opacity has slightly increased since exam June 02, 2017. Right lung is clear. IMPRESSION: 1. Slight increase in left basilar opacity. This may reflect pneumonia. However, continued radiographic follow-up is recommended to exclude the possibility of an underlying neoplasm. 2. Severe emphysema. Electronically signed by: Charles Littlejohn M.D. 06/13/2017 7:07 PM Dictated Date/Time: 06/13/2017 7:04 PM Laboratory Results 06/13/17 19:07 Red Blood Count 3.97, Mean Corpuscular Volume 101.0, Mean Corpuscular Hemoglobin 34.5, Mean Corpuscular Hemoglobin Concent 34.2, Mean Platelet Volume 9.3, Neutrophils (%) (Auto) 92.6, Lymphocytes (%) (Auto) 4.7, Monocytes (%) ( Auto) 2.1, Eosinophils (%) (Auto) 0.0, Basophils (%) (Auto) 0.0, Neutrophils # ( Auto) 6.50, Lymphocytes # (Auto) 0.33, Monocytes # (Auto) 0.15, Eosinophils # ( Auto) 0.00, Basophils # (Auto) 0.00 06/13/17 19:07 Test 06/13/17 19:07 White Blood Count 7.02 K/uL (4.8-10.8) Red Blood Count 3.97 M/uL (4.7-6.1) Hemoglobin 13.7 g/dL (14.0-18.0) Hematocrit 40.1 % (42-52) Mean Corpuscular Volume 101.0 fL (80-100) Mean Corpuscular Hemoglobin 34.5 pg (25-34) Mean Corpuscular Hemoglobin Concent 34.2 g/dl (32-36) Platelet Count 163 K/uL (130-400) Mean Platelet Volume 9.3 fL (7.4-10.4) Neutrophils (%) (Auto) 92.6 % Lymphocytes (%) (Auto) 4.7 % Monocytes (%) (Auto) 2.1 % Eosinophils (%) (Auto) 0.0 % Basophils (%) (Auto) 0.0 % Neutrophils # (Auto) 6.50 K/uL (1.4-6.5) Lymphocytes # (Auto) 0.33 K/uL (1.2-3.4) Monocytes # (Auto) 0.15 K/uL (0.11-0.59) Eosinophils # (Auto) 0.00 K/uL (0-0.5) Basophils # (Auto) 0.00 K/uL (0-0.2) RDW Standard Deviation 47.0 fL (36.4-46.3) RDW Coefficient of Variation 12.6 % (11.5-14.5) Immature Granulocyte % (Auto) 0.6 % Immature Granulocyte # (Auto) 0.04 K/uL (0.00-0.02) Prothrombin Time 10.0 SECONDS (9.0-12.0) Prothromb Time International Ratio 1.0 (0.9-1.1) Activated Partial Thromboplast Time 22.6 SECONDS (21.0-31.0) Partial Thromboplastin Ratio 0.9 Anion Gap 6.0 mmol/L (3-11) Est Creatinine Clear Calc Drug Dose 53.2 ml/min Estimated GFR () 81.6 Estimated GFR (Non- 70.4 BUN/Creatinine Ratio 11.5 (10-20) Calcium Level 8.7 mg/dl (8.5-10.1) Total Bilirubin 0.4 mg/dl (0.2-1) Direct Bilirubin 0.1 mg/dl (0-0.2) Aspartate Amino Transf (AST/SGOT) 19 U/L (15-37) Alanine Aminotransferase (ALT/SGPT) 24 U/L (12-78) Alkaline Phosphatase 82 U/L (45-117) Total Creatine Kinase 52 U/L (39-308) Creatine Kinase MB 1.4 ng/ml (0.5-3.6) Creatine Kinase MB Ratio 2.7 (0-3.0) Troponin I < 0.015 ng/ml (0-0.045) Total Protein 6.6 gm/dl (6.4-8.2) Albumin 3.1 gm/dl (3.4-5.0) Lipase 150 U/L (73-393) Laboratory results as stated above per my review. Medications Administered Medications (Trade) Dose Ordered Sig/Rigoberto Route Start Time Stop Time Status Last Admin Dose Admin Albuterol/ Ipratropium (Duoneb) 3 ml NOW STAT INH 06/13/17 18:44 06/13/17 18:45 DC 06/13/17 18:55 3 ML ECG Indication: SOB/dyspnea Rate (beats per minute): 67 Rhythm: normal sinus Findings: no ectopy, other (no acute injury) ED Course 1834: Previous medical records were reviewed. The patient was evaluated in room B2. A complete history and physical examination was performed. 1844: Ordered Duoneb 3 ml INH. 2013: On reevaluation, the patient is feeling better. I discussed the results and findings with the patient. He verbalized agreement of the treatment plan. He was discharged home. Medical Decision The differential considered includes acute myocardial infarction, acute coronary syndrome, myocarditis, pericarditis, pericardial effusions/tamponade, esophageal perforation, pulmonary embolism, pneumonia, pneumothorax, cardiomyopathy, congestive heart, anemia, COPD/asthma exacerbation. This is a 76-year-old male who presents to the ED with a chief complaint of shortness of breath and cough as well as some chest discomfort. The patient reports that he has been short of breath for the past couple of months. He states that he was on antibiotics a couple of weeks ago and seemed to improve with that. He reports a cough with some white sputum. History of COPD. He rates reports some chest tightness as well. His tightness is just in the central region of his chest. The patient reports using home oxygen. He quit smoking 15 months ago. He denies any weight loss. He states he is actually gained some weight since quitting smoking. His physical exam was unremarkable. Vital signs are stable. Chest x-ray reveals a left base infiltrate. Troponin was negative. Complete metabolic panel was unremarkable. CBC is unremarkable. EKG shows a normal sinus rhythm without ectopy or acute injury. The patient was told the results. He was given a DuoNeb treatment here. He was started on Levaquin. He will finish his current steroid course. He is to follow-up with his PCP for recheck next week. Medication Reconcilliation Current Medication List: was personally reviewed by me Blood Pressure Screening Patient's blood pressure: Normal blood pressure Impression Primary Impression: Pneumonia Scribe Attestation The scribe's documentation has been prepared under my direction and personally reviewed by me in its entirety. I confirm that the note above accurately reflects all work, treatment, procedures, and medical decision making performed by me. Departure Information Dispostion Home / Self-Care Prescriptions Levofloxacin (Levaquin) 500 Mg Tab 500 MG PO DAILY for 10 Days, #10 TAB Prov: Lazaro Ford D.O. 06/13/17 Referrals No Doctor, Assigned (PCP) Patient Instructions My [facility] Additional Instructions Levaquin as prescribed. Follow-up with your doctor later this week for recheck. Return for worsening or new concerns. Continue your current home medications. Have your doctor repeat a chest x-ray and 1-2 weeks.
[2017-06-13] MEDS ORDERED: LEVOFLOXACIN 250 MG TAB ONE (20:20)
[2017-06-13 20:24] VITALS: BP 140/76; PULSE 79; O2SAT 98
[2017-06-14] MEDS ORDERED: LEVOFLOXACIN 500 MG TAB PO SCH (11:00)
== END 2017-06-13 20:39 | disposition home or self-care (01) ==
LOC: C.EDB 18:25
DX: J18.9 Pneumonia, unspecified organism (principal); J44.9 Chronic obstructive pulmonary disease, unspecified; F10.10 Alcohol abuse, uncomplicated; Z99.81 Dependence on supplemental oxygen; Z87.891 Personal history of nicotine dependence

== ENCOUNTER 2017-06-23 14:03 | Emergency (ER) | payer OTHER ==
[~2017-06-23] VITALS: Ht 175.3 cm; Wt 58.0 kg
[~2017-06-23 14:03] MED LIST changes: -OPTIRAY 320 IV PRN
[2017-06-23 14:10] VITALS: TEMP 36.5; Ht 175.3 cm; Wt 58.0 kg
[2017-06-23] MEDS ORDERED: ALBUT/IPRATROP 3MG/0.5MG NEB 3 ML VIAL INH STA (14:36)
[2017-06-23 15:03] LABS: BASO % 0.5 %; BASO ABS # 0.03 K/uL (0-0.2); EOS % 0.8 %; EOS ABS # 0.05 K/uL (0-0.5); HEMATOCRIT 38.6 % (42-52); HEMOGLOBIN 13.8 g/dL (14.0-18.0); IG# 0.03 K/uL (0.00-0.02); LYMPH % 17.5 %; LYMPH ABS # 1.11 K/uL (1.2-3.4); MEAN CORPUSCULAR HEMOGLOBIN 35.4 pg (25-34); MEAN CORPUSCULAR HGB CONC 35.8 g/dl (32-36); MONO ABS # 0.57 K/uL (0.11-0.59); NEUT % 71.7 %; NEUT ABS # 4.55 K/uL (1.4-6.5); PLATELET COUNT 138 K/uL (130-400); RED CELL DISTRIBUTION WIDTH CV 12.5 % (11.5-14.5); RED CELL DISTRIBUTION WIDTH SD 44.7 fL (36.4-46.3); WHITE BLOOD COUNT 6.34 K/uL (4.8-10.8)
[2017-06-23 15:11] LABS: PTT PATIENT 24.6 SECONDS (21.0-31.0)
[2017-06-23 15:19] LABS: CALCIUM 8.8 mg/dl (8.5-10.1); CREATININE 0.91 mg/dl (0.60-1.40); POTASSIUM 3.8 mmol/L (3.5-5.1)
[2017-06-23 15:38] LABS: INFLUENZA B ANTIGEN Neg for Influ B (NEG)
--- NOTE | 2017-06-23 17:15 | EMERGENCY ROOM VISIT NOTE ---
History Report prepared by Fab: Paulo Lubin Under the Supervision of: Dr. Jesus Woo M.D. First contact with patient: 14:25 Chief Complaint: WEAKNESS Stated Complaint: WEAK,DIZZY Nursing Triage Summary: pt c/o weakness and dizziness with concern for the flu pt is being tx for pneumonia and just had a CT scan prior to coming to the ED History of Present Illness The patient is a 76 year old male who presents to the Emergency Room with complaints of persistent generalized weakness beginning over a month ago. The patient also complains of dizziness, and shortness of breath. He notes that his shortness of breath has been improving. He states that he has been having "gas- like pain" in his chest intermittently for several months. The patient was diagnosed with pneumonia 10 days ago. He had a chest CT just prior to arrival for continued symptoms, and presented to the ED today due to his feeling of weakness. He recently finished his treatment of Levaquin. Please CAT scan was ordered by his mail agent, Dr. Gill. He has a history of COPD and is on supplemental oxygen at home. The patient denies fevers or diarrhea. He notes that he found a rash on his back today. He was previously vomiting. Source of History: patient Onset: A month ago Position: other (generalized) Quality: other (weakness) Timing: other (persistent) Associated Symptoms: + SOB (improving), + vomiting (previously), + rash ( just noticed when arriving here), No fevers, No diarrhea Note: Additional symptoms: "gas-like pain" in his chest intermittently for several months Review of Systems See HPI for pertinent positives & negatives. A total of 10 systems reviewed and were otherwise negative. Past Medical & Surgical Medical Problems: (1) COPD (chronic obstructive pulmonary disease) (2) ETOH abuse Family History Patient reports no known family medical history. Social History Smoking Status: Former Smoker Alcohol Use: occasionally Drug Use: none Marital Status: Housing Status: lives with family Current/Historical Medications Scheduled Albuterol Sulf (Albuterol Sulfate), 1 VIAL INH Q4 Fluticasone Prop/Salmeterol (Advair Diskus 250/50 60 Dose), 1 PUFF INH BID Folic Acid (Folvite), 1 MG PO DAILY Levofloxacin (Levaquin), 500 MG PO DAILY Roflumilast (Daliresp), 1 TAB PO DAILY Thiamine Hcl (Vitamin B-1), 100 MG PO DAILY Scheduled PRN Albuterol Sulfate (Proair Respiclick), 2 PUFF PO Q4H PRN for SOB/Wheezing Allergies Coded Allergies: No Known Allergies (Unverified , 06/23/17) Physical Exam Vital Signs Date Time Temp Pulse Resp B/P (MAP) Pulse Ox O2 Delivery O2 Flow Rate FiO2 06/23/17 14:45 75 06/23/17 14:36 142/88 06/23/17 14:10 36.5 100 22 124/ 96 Nasal Cannula 2.0 Physical Exam Constitutional: Vital signs reviewed. Eyes: Pupils are equal round reactive to light. Conjunctiva are noninjected. ENT: Pharynx is clear without erythema or exudate. Mucous membranes are moist. Neck supple without meningeal signs. Respiratory: Clear to auscultation bilaterally. Breath sounds are equal bilaterally. Cardiovascular: Regular rate and rhythm. No rubs or gallops. GI: Soft, nondistended and nontender. Bowel sounds are present. Musculoskeletal: No peripheral edema. No lower extremity tenderness. Integumentary: No cyanosis. Papular rash to the trunk and arms. Neurological: The patient is awake and alert. No focal deficits. Psychiatric: Normal affect. Medical Decision & Procedures ER Provider Diagnostic Interpretation: Radiology results as stated below per my review and the radiologist's interpretation: (CHEST) THORAX WITH FINDINGS: Stable baseline emphysematous change. Chronic fibrotic change pulmonary apices unaltered. Mild Baseline interstitial change/interstitial fibrosis also stable. Persistent superimposed infiltrative change left base essentially unchanged to perhaps minimally improved. There is associated pleural based density left base unaltered. Right basilar considered clear. Limited evaluation of the upper abdomen is unremarkable. The adrenal glands are normal. IMPRESSION: 1. Stable CT of chest with no change compared to the prior study. 2. Emphysematous change with scattered interstitial and parenchymal fibrosis also stable. 3. Potential superimposed infiltrative/nodular process left base. 4. Although statistically the left basilar finding is potentially a slowly resolving inflammatory or interstitial process, a [address] follow-up is recommended to ensure stability or resolution and exclude any progressive pleural-based nodular change. The above report was generated using voice recognition software. It may contain grammatical, syntax or spelling errors. Electronically signed by: Joni Bond M.D. 06/23/2017 1:45 PM Dictated Date/Time: 06/23/2017 1:40 PM Laboratory Results 06/23/17 14:55 Red Blood Count 3.90, Mean Corpuscular Volume 99.0, Mean Corpuscular Hemoglobin 35.4, Mean Corpuscular Hemoglobin Concent 35.8, Mean Platelet Volume 9.0, Neutrophils (%) (Auto) 71.7, Lymphocytes (%) (Auto) 17.5, Monocytes (%) (Auto) 9.0, Eosinophils (%) (Auto) 0.8, Basophils (%) (Auto) 0.5, Neutrophils # (Auto) 4.55, Lymphocytes # (Auto) 1.11, Monocytes # (Auto) 0.57, Eosinophils # (Auto) 0.05, Basophils # (Auto) 0.03 06/23/17 14:55 Test 06/23/17 14:55 06/23/17 15:06 White Blood Count 6.34 K/uL (4.8-10.8) Red Blood Count 3.90 M/uL (4.7-6.1) Hemoglobin 13.8 g/dL (14.0-18.0) Hematocrit 38.6 % (42-52) Mean Corpuscular Volume 99.0 fL (80-100) Mean Corpuscular Hemoglobin 35.4 pg (25-34) Mean Corpuscular Hemoglobin Concent 35.8 g/dl (32-36) Platelet Count 138 K/uL (130-400) Mean Platelet Volume 9.0 fL (7.4-10.4) Neutrophils (%) (Auto) 71.7 % Lymphocytes (%) (Auto) 17.5 % Monocytes (%) (Auto) 9.0 % Eosinophils (%) (Auto) 0.8 % Basophils (%) (Auto) 0.5 % Neutrophils # (Auto) 4.55 K/uL (1.4-6.5) Lymphocytes # (Auto) 1.11 K/uL (1.2-3.4) Monocytes # (Auto) 0.57 K/uL (0.11-0.59) Eosinophils # (Auto) 0.05 K/uL (0-0.5) Basophils # (Auto) 0.03 K/uL (0-0.2) RDW Standard Deviation 44.7 fL (36.4-46.3) RDW Coefficient of Variation 12.5 % (11.5-14.5) Immature Granulocyte % (Auto) 0.5 % Immature Granulocyte # (Auto) 0.03 K/uL (0.00-0.02) Prothrombin Time 10.7 SECONDS (9.0-12.0) Prothromb Time International Ratio 1.0 (0.9-1.1) Activated Partial Thromboplast Time 24.6 SECONDS (21.0-31.0) Partial Thromboplastin Ratio 0.9 Urine Color YELLOW Urine Appearance CLEAR (CLEAR) Urine pH 5.0 (4.5-7.5) Urine Specific [place] > 1.045 (1.000-1.030) Urine Protein NEG (NEG) Urine Glucose (UA) NEG (NEG) Urine Ketones NEG (NEG) Urine Occult Blood NEG (NEG) Urine Nitrite NEG (NEG) Urine Bilirubin NEG (NEG) Urine Urobilinogen NEG (NEG) Urine Leukocyte Esterase NEG (NEG) Anion Gap 7.0 mmol/L (3-11) Est Creatinine Clear Calc Drug Dose 58.4 ml/min Estimated GFR () 95.9 Estimated GFR (Non- 82.7 BUN/Creatinine Ratio 5.1 (10-20) Calcium Level 8.8 mg/dl (8.5-10.1) Troponin I < 0.015 ng/ml (0-0.045) Thyroid Stimulating Hormone (TSH) 0.620 uIu/ml (0.300-4.500) Free Thyroxine 1.41 ng/dl (0.80-1.60) Influenza Type A Antigen Neg for Influ A (NEG) Influenza Type B Antigen Neg for Influ B (NEG) Laboratory results as reviewed by me. Medications Administered Medications (Trade) Dose Ordered Sig/Rigoberto Route Start Time Stop Time Status Last Admin Dose Admin Albuterol/ Ipratropium (Duoneb) 3 ml NOW STAT INH 06/23/17 14:36 06/23/17 14:38 DC 06/23/17 15:07 3 ML ECG Indication: weakness Rate (beats per minute): 81 Rhythm: normal sinus Findings: no acute ischemic change, no ectopy ED Course 1427: The patient was evaluated in room B8. A complete history and physical exam was performed 1436: Ordered DuoNeb 3 mL INH. 1555: I reassessed the patient. He is feeling well enough to go home. His lungs are clear to auscultation. 1630: Upon reevaluation, the patient appeared to have improvement of his symptoms. He would like to go home, as his symptoms have been present for months. The patient will follow up with his PCP. I discussed corrie's findings with him. He verbalized agreement of the treatment plan. The patient was discharged home. Medical Decision This is a 76-year-old male who presents with generalized weakness. Differential diagnosis includes COPD exacerbation, anemia, influenza, pneumonia , metabolic derangement. I did perform a limited focused review of portions of the patient's old chart on the electronic medical record. The patient was seen here on Jun 13, 2017 for COPD and was diagnosed with pneumonia of the left lung. Discharged on Levaquin. He had a left local inflammatory process on chest CT on May 20, 2017. Similar findings on X-ray in March,. I did evaluate the patient as noted above. The patient and spend having generalized weakness for the past several months. He was diagnosed with pneumonia recently and placed on Levaquin which she finished. He did have a CT scan earlier today which demonstrated continued left lower lobe inflammatory changes. These were also seen on CAT scan in May as well as his x-ray in March. Given he has had these symptoms and findings for several months and was recently treated with antibiotics I did not feel this represented an acute pneumonia. IV access was established. The patient was placed on a continuous mobile therapist. I did order and personally review the patient's 12-lead EKG as described above. I did order and review the patient's blood work as noted in the electronic medical record. Troponin is negative. He has very minimal anemia. TFTs are unremarkable. His white blood cell count is not elevated. Urinalysis is negative. Rapid flu testing is negative. I did treat patient with a DuoNeb. On re-assessment he has no wheezing on exam. At this time I discussed the test results with the patient and his . The cause of his symptoms is unclear. I did attempt to call Dr. Gill but was unable to reach him. The patient states he would like to go home. He has had these symptoms for months and so I did not see any indication for hospitalization. I did recommend close follow up with his doctor. He was discharged in good condition. He did develop a rash today which is papular and diffuse over his trunk and arms. It is not itchy. It does not appear to be an allergic reaction. I did recommend he follow up with his doctor regarding this rashes well. Medication Reconcilliation Current Medication List: was personally reviewed by me Blood Pressure Screening Patient's blood pressure: Normal blood pressure Blood pressure disposition: Did not require urgent referral Impression Primary Impression: Generalized weakness Additional Impressions: Rash COPD exacerbation Scribe Attestation The scribe's documentation has been prepared under my direct and personally reviewed by me in its entirety. I confirm that the note above accurately reflects all work, treatment, procedures, and medical decision making performed by me. Departure Information Dispostion Home / Self-Care Referrals Abram Owens M.D. (PCP) Forms HOME CARE DOCUMENTATION FORM, IMPORTANT VISIT INFORMATION Patient Instructions ED Weakness [place], My [facility], [facility] Additional Instructions You have been examined and treated today on an emergency basis only. This is not a substitute for, or an effort to provide, complete comprehensive medical care. It is impossible to recognize and treat all injuries or illnesses in a single emergency department visit. It is therefore important that you follow up closely with your physician within 48 hours. Call as soon as possible for an appointment. Return for worsening symptoms or if you develop fever, vomiting, chest pain or any other concerning symptoms. Problem Qualifiers
[2017-06-23 17:20] VITALS: BP 127/64; PULSE 72; O2SAT 96
== END 2017-06-23 17:20 | disposition home or self-care (01) ==
LOC: C.EDB 14:04
DX: R53.1 Weakness (principal); R21 Rash and other nonspecific skin eruption; J45.901 Unspecified asthma with (acute) exacerbation; Z87.891 Personal history of nicotine dependence

== ENCOUNTER → 2017-06-23 | Outpatient (CLI) | payer OTHER ==
[~2017-06-23] MED LIST changes: +LEVO-366 PO; -LVQ500 PO; +OPTIRAY 320 IV PRN; -PRD20 PO; +PRED-301 PO
--- NOTE | 2017-06-23 13:46 | DIAGNOSTIC IMAGING REPORT ---
(CHEST) THORAX WITH CT DOSE: 227.09 mGy.cm HISTORY: COPD SEVERE CHRONIC OBSTRUCTIVE PULMONARY DISEASE TECHNIQUE: Multiaxial CT images of the chest were performed following the intravenous administration of contrast. A dose lowering technique was utilized adhering to the principles of ALARA. COMPARISON: 05/20/2017 FINDINGS: Stable baseline emphysematous change. Chronic fibrotic change pulmonary apices unaltered. Mild Baseline interstitial change/interstitial fibrosis also stable. Persistent superimposed infiltrative change left base essentially unchanged to perhaps minimally improved. There is associated pleural based density left base unaltered. Right basilar considered clear. Limited evaluation of the upper abdomen is unremarkable. The adrenal glands are normal. IMPRESSION: 1. Stable CT of chest with no change compared to the prior study. 2. Emphysematous change with scattered interstitial and parenchymal fibrosis also stable. 3. Potential superimposed infiltrative/nodular process left base. 4. Although statistically the left basilar finding is potentially a slowly resolving inflammatory or interstitial process, a [address] follow-up is recommended to ensure stability or resolution and exclude any progressive pleural-based nodular change. The above report was generated using voice recognition software. It may contain grammatical, syntax or spelling errors. Electronically signed by: Joni Bond M.D. 06/23/2017 1:45 PM Dictated Date/Time: 06/23/2017 1:40 PM
== END | disposition home or self-care (01) ==
LOC: C.CTS 13:17
PROVIDERS: ATTEND Family Medicine
DX: J18.1 Lobar pneumonia, unspecified organism (principal); J44.9 Chronic obstructive pulmonary disease, unspecified

== ENCOUNTER → 2017-07-07 | Outpatient (CLI) | payer OTHER ==
[~2017-07-07] MED LIST changes: -LEVO-366 PO; -PRED-301 PO
--- NOTE | 2017-07-07 11:01 | DIAGNOSTIC IMAGING REPORT ---
PET/CT SKULL-THIGH CLINICAL HISTORY: PULMONARY NODULE COMPARISON STUDY: Chest CT dated 06/23/2017 FINDINGS: The patient was injected with 13.7 mCi of F 18 labeled FDG. Following the standard induction phase, PET/CT scanning was performed from the skull base to the upper thigh region. Activity within neck is felt to be physiologic. Activity within the thorax is felt to be physiologic. There is no pathologic kevin activity. There is severe pulmonary emphysema. There are left lower lobe bronchiectatic changes. There are persistent interstitial and nodular left lower lobe opacities, similar to the prior study, but slightly improved compared the prior May 2017 study. These are likely inflammatory/postinflammatory and demonstrate background FDG activity. Activity within the abdomen and pelvis is felt to be normal with physiologic urinary tract activity. There is extensive colonic diverticulosis. There is no pathologic kevin activity. There is no pathologic adrenal gland activity. There is no pathologic skeletal activity. IMPRESSION: 1. Left lower lobe bronchiectatic changes with persistent interstitial and nodular left lower lobe opacities. These are likely inflammatory/postinflammatory. 2. No evidence of pathologic FDG activity Electronically signed by: Dean Michael M.D. 07/07/2017 11:00 AM Dictated Date/Time: 07/07/2017 10:53 AM
== END | disposition home or self-care (01) ==
LOC: C.PET 08:22
PROVIDERS: ATTEND Internal Medicine Critical Care Medicine
DX: R91.1 Solitary pulmonary nodule (principal)

== ENCOUNTER 2017-10-03 10:09 | Inpatient (IN) | payer OTHER ==
[~2017-10-03] VITALS: Ht 177.8 cm; Wt 65.2 kg
[2017-10-03] VITALS (8 sets, daily range): BP systolic 128–194; BP diastolic 64–104; PULSE 73–107; TEMP 36.4–36.8; O2SAT 89–99; Ht 177.8 cm; Wt 65.2 kg
[2017-10-03] MEDS ORDERED: ALBUT/IPRATROP 3MG/0.5MG NEB 3 ML VIAL INH STA (10:33)
[2017-10-03] MEDS ORDERED: CEFTRIAXONE SOD INJ 1 GM ADDVIAL IV STA (10:33)
[2017-10-03] MEDS ORDERED: METHYLPREDNISOLONE 125 MG VIAL IV STA (10:33)
[2017-10-03 11:05] LABS: BASO % 0.2 %; BASO ABS # 0.02 K/uL (0-0.2); EOS % 0.5 %; EOS ABS # 0.05 K/uL (0-0.5); HEMATOCRIT 43.2 % (42-52); HEMOGLOBIN 15.6 g/dL (14.0-18.0); IG# 0.02 K/uL (0.00-0.02); LYMPH % 7.9 %; LYMPH ABS # 0.75 K/uL (1.2-3.4); MEAN CELL VOLUME 97.3 fL (80-100); MEAN CORPUSCULAR HEMOGLOBIN 35.1 pg (25-34); MEAN CORPUSCULAR HGB CONC 36.1 g/dl (32-36); MEAN PLATELET VOLUME 9.4 fL (7.4-10.4); MONO % 5.7 %; MONO ABS # 0.54 K/uL (0.11-0.59); NEUT % 85.5 %; PLATELET COUNT 175 K/uL (130-400); RED CELL DISTRIBUTION WIDTH SD 46.4 fL (36.4-46.3); WHITE BLOOD COUNT 9.48 K/uL (4.8-10.8)
[2017-10-03 11:17] LABS: PTT PATIENT 24.7 SECONDS (21.0-31.0)
--- NOTE | 2017-10-03 11:18 | DIAGNOSTIC IMAGING REPORT ---
SINGLE VIEW CHEST CLINICAL HISTORY: Dyspnea. FINDINGS: 2 AP, portable, upright chest radiographs are compared to study dated 06/13/2017 and correlated with chest CT dated 06/23/2017. The examination is mildly degraded by portable technique. The cardiomediastinal silhouette is unremarkable. There is atherosclerotic calcification of the thoracic aorta. The pulmonary vasculature is noncongested. Enlargement the central pulmonary vessels unchanged and suggests pulmonary artery hypertension. Emphysema and chronic interstitial thickening are similar to previous. Patchy airspace opacities are identified at the left lung base. The lungs are otherwise clear. No large pleural effusion or pneumothorax is seen. The skeletal structures are osteopenic. The bony thorax is grossly intact. IMPRESSION: 1. Advanced emphysema. 2. Patchy airspace consolidation is again seen at the left lung base, and is similar in appearance to the 06/13/2017 examination. This could represent scarring versus an infectious/inflammatory pneumonitis. Clinical correlation will be required and radiographic follow-up to resolution is recommended. Electronically signed by: Drew Brooks M.D. 10/03/2017 11:17 AM Dictated Date/Time: 10/03/2017 11:14 AM
[2017-10-03 11:22] LABS: ALBUMIN 3.2 gm/dl (3.4-5.0); ALT/SGPT 24 U/L (12-78); AST/SGOT 29 U/L (15-37); BLOOD UREA NITROGEN 10 mg/dl (7-18); CALCIUM 9.2 mg/dl (8.5-10.1); CARBON DIOXIDE 27 mmol/L (21-32); GLUCOSE 100 mg/dl (70-99); POTASSIUM 3.7 mmol/L (3.5-5.1); SODIUM 137 mmol/L (136-145)
[2017-10-03] MEDS ORDERED: MAGNESIUM OXIDE 400 MG TAB PO STA (11:27)
[2017-10-03 11:33] LABS: ALKALINE PHOSPHATASE 87 U/L (45-117); TOTAL PROTEIN 7.1 gm/dl (6.4-8.2)
[2017-10-03] MEDS ORDERED: ASPIRIN 81 MG CHEW PO STA (11:41)
[2017-10-03] MEDS ORDERED: ROFL1TAB5 PO (12:06)
[2017-10-03] MEDS ORDERED: PRED10TA PO (12:06)
[2017-10-03] MEDS ORDERED: ALBINS/ NEB (12:06)
[2017-10-03] MEDS ORDERED: THIA100T11 PO (12:06)
[2017-10-03] MEDS ORDERED: LEVALBUTEROL 1.25MG/0.5ML NEB INH PRN (12:45)
[2017-10-03] MEDS ORDERED: IPRATROPIUM BROMIDE NEB SOLN 0.02% 2.5 ML VIAL INH PRN (12:45)
[2017-10-03] MEDS ORDERED: ACETAMINOPHEN 325 MG TAB PO PRN (12:45)
[2017-10-03] MEDS ORDERED: POLYETHYLENE (MIRALAX) 17 GM PACK PO PRN (12:45)
[2017-10-03] MEDS ORDERED: ONDANSETRON INJ 2 MG/ML 2 ML VIAL IV PRN (12:45)
--- NOTE | 2017-10-03 14:45 | EMERGENCY ROOM VISIT NOTE ---
History Report prepared by Fab: Uvaldo Jones Under the Supervision of: Dr. Drew Tellez M.D. First contact with patient: 10:26 Chief Complaint: SHORTNESS OF BREATH Stated Complaint: SOB History of Present Illness The patient is a 76 year old male who presents to the Emergency Room with complaints of worsening shortness of breath beginning a week ago. The patient states he wears 2L of oxygen and was told to increase it when he moves. He reports he does not increase his O2 when he walks. The patient notes he is coughing more than usual, and his phlegm changed to a yellow color. He states he has also been experiencing diarrhea and nausea for the past couple of days. The patient reports his legs are going numb more frequently than usual. He notes he has a history of COPD and quit smoking 1.5 years ago. The patient states he is currently on prednisone 10mg daily. He reports he also takes Advair and uses a nebulizer. The patient notes he used his nebulizer, and it did not help. He denies fevers, chest pain, and a history of blood clots in the legs or lungs. Source of History: patient Onset: week ago Quality: other (SOB) Timing: worsening Modifying Factors (Relieving): other (Nebulizer does not help) Associated Symptoms: + cough (greenish color to yellow phlegm), + nausea, + diarrhea, + numbness (more frequent in his legs), No fevers, No chest pain Review of Systems See HPI for pertinent positives & negatives. A total of 10 systems reviewed and were otherwise negative. Past Medical & Surgical Medical Problems: (1) COPD (chronic obstructive pulmonary disease) (2) Elevated troponin (3) ETOH abuse Family History Patient reports no known family medical history. Social History Smoking Status: Former Smoker Alcohol Use: occasionally Drug Use: none Marital Status: Housing Status: lives with family Current/Historical Medications Scheduled Fluticasone Prop/Salmeterol (Advair Diskus 250/50 60 Dose), 1 PUFF INH BID Prednisone (Prednisone), 10 MG PO DAILY Roflumilast (Daliresp), 500 MG PO DAILY Thiamine Hcl (Vitamin B-1), 100 MG PO DAILY Scheduled PRN Albuterol Sulf (Proventil 0.083% 2.5MG/3ML), 1 VIAL NEB QID PRN for SOB/Wheezing Albuterol Sulfate (Proair Respiclick), 2 PUFF PO Q4H PRN for SOB/Wheezing Allergies Coded Allergies: No Known Allergies (Unverified , 10/03/17) Physical Exam Vital Signs Date Time Temp Pulse Resp B/P (MAP) Pulse Ox O2 Delivery O2 Flow Rate FiO2 10/03/17 12:16 83 16 173/107 99 Nasal Cannula 2.0 10/03/17 11:47 86 16 173/106 98 Nasal Cannula 2.0 10/03/17 11:04 99 Nasal Cannula 2.0 10/03/17 11:00 86 16 162/89 99 Nasal Cannula 2.0 10/03/17 10:55 95 Nasal Cannula 2.0 10/03/17 10:55 95 Nasal Cannula 2.0 10/03/17 10:52 103 10/03/17 10:17 36.6 122 24 165/87 95 Nasal Cannula 2.0 Physical Exam GENERAL: Patient is in no acute distress. HEENT: No acute trauma, normocephalic atraumatic, mucous membranes moist, no nasal congestion, no scleral icterus. NECK: No stridor, no adenopathy, no meningismus, trachea is midline. LUNGS: Decreased breath sounds bilaterally. Few scattered wheezes. No crackles. No respiratory distress. HEART: Without murmurs gallops or rubs, regular rate and rhythm. ABDOMEN: Soft, nontender, bowel sounds positive, no hernias, no peritonitis. EXTREMITIES: No cyanosis or edema, full range of motion of all the joints without pain or difficulty, no signs for acute trauma. NEUROLOGIC: Oriented x 3, no acute motor or sensory deficits, no focal weakness. SKIN: No rash, no jaundice, no diaphoresis. Medical Decision & Procedures ER Provider Diagnostic Interpretation: X-ray results as stated below per interpretation by me and the radiologist: SINGLE VIEW CHEST CLINICAL HISTORY: Dyspnea. FINDINGS: 2 AP, portable, upright chest radiographs are compared to study dated 06/13/2017 and correlated with chest CT dated 06/23/2017. The examination is mildly degraded by portable technique. The cardiomediastinal silhouette is unremarkable. There is atherosclerotic calcification of the thoracic aorta. The pulmonary vasculature is noncongested. Enlargement the central pulmonary vessels unchanged and suggests pulmonary artery hypertension. Emphysema and chronic interstitial thickening are similar to previous. Patchy airspace opacities are identified at the left lung base. The lungs are otherwise clear. No large pleural effusion or pneumothorax is seen. The skeletal structures are osteopenic. The bony thorax is grossly intact. IMPRESSION: 1. Advanced emphysema. 2. Patchy airspace consolidation is again seen at the left lung base, and is similar in appearance to the 06/13/2017 examination. This could represent scarring versus an infectious/inflammatory pneumonitis. Clinical correlation will be required and radiographic follow-up to resolution is recommended. Electronically signed by: Drew Brooks M.D. 10/03/2017 11:17 AM Dictated Date/Time: 10/03/2017 11:14 AM Laboratory Results 10/03/17 10:52 Red Blood Count 4.44, Mean Corpuscular Volume 97.3, Mean Corpuscular Hemoglobin 35.1, Mean Corpuscular Hemoglobin Concent 36.1, Mean Platelet Volume 9.4, Neutrophils (%) (Auto) 85.5, Lymphocytes (%) (Auto) 7.9, Monocytes (%) (Auto) 5.7, Eosinophils (%) (Auto) 0.5, Basophils (%) (Auto) 0.2, Neutrophils # (Auto) 8.10, Lymphocytes # (Auto) 0.75, Monocytes # (Auto) 0.54, Eosinophils # (Auto) 0.05, Basophils # (Auto) 0.02 10/03/17 10:52 Test 10/03/17 10:52 White Blood Count 9.48 K/uL (4.8-10.8) Red Blood Count 4.44 M/uL (4.7-6.1) Hemoglobin 15.6 g/dL (14.0-18.0) Hematocrit 43.2 % (42-52) Mean Corpuscular Volume 97.3 fL (80-100) Mean Corpuscular Hemoglobin 35.1 pg (25-34) Mean Corpuscular Hemoglobin Concent 36.1 g/dl (32-36) Platelet Count 175 K/uL (130-400) Mean Platelet Volume 9.4 fL (7.4-10.4) Neutrophils (%) (Auto) 85.5 % Lymphocytes (%) (Auto) 7.9 % Monocytes (%) (Auto) 5.7 % Eosinophils (%) (Auto) 0.5 % Basophils (%) (Auto) 0.2 % Neutrophils # (Auto) 8.10 K/uL (1.4-6.5) Lymphocytes # (Auto) 0.75 K/uL (1.2-3.4) Monocytes # (Auto) 0.54 K/uL (0.11-0.59) Eosinophils # (Auto) 0.05 K/uL (0-0.5) Basophils # (Auto) 0.02 K/uL (0-0.2) RDW Standard Deviation 46.4 fL (36.4-46.3) RDW Coefficient of Variation 13.0 % (11.5-14.5) Immature Granulocyte % (Auto) 0.2 % Immature Granulocyte # (Auto) 0.02 K/uL (0.00-0.02) Prothrombin Time 10.6 SECONDS (9.0-12.0) Prothromb Time International Ratio 1.0 (0.9-1.1) Activated Partial Thromboplast Time 24.7 SECONDS (21.0-31.0) Partial Thromboplastin Ratio 1.0 Anion Gap 9.0 mmol/L (3-11) Estimated GFR () 97.2 Estimated GFR (Non- 83.8 BUN/Creatinine Ratio 10.5 (10-20) Calcium Level 9.2 mg/dl (8.5-10.1) Magnesium Level 1.6 mg/dl (1.8-2.4) Total Bilirubin 1.2 mg/dl (0.2-1) Aspartate Amino Transf (AST/SGOT) 29 U/L (15-37) Alanine Aminotransferase (ALT/SGPT) 24 U/L (12-78) Alkaline Phosphatase 87 U/L (45-117) Troponin I 0.234 ng/ml (0-0.045) Total Protein 7.1 gm/dl (6.4-8.2) Albumin 3.2 gm/dl (3.4-5.0) Globulin 3.9 gm/dl (2.5-4.0) Albumin/Globulin Ratio 0.8 (0.9-2) Laboratory results reviewed by me. Medications Administered Medications (Trade) Dose Ordered Sig/Rigoberto Route Start Time Stop Time Status Last Admin Dose Admin Methylprednisolone Sodium Succinate (Solu-Medrol IV) 125 mg NOW STAT IV 10/03/17 10:33 10/03/17 10:35 DC 10/03/17 10:54 125 MG Albuterol/ Ipratropium (Duoneb) 3 ml NOW STAT INH 10/03/17 10:33 10/03/17 10:35 DC 10/03/17 10:49 3 ML Ceftriaxone Sodium (Rocephin Inj) 1 gm NOW STAT IV 10/03/17 10:33 10/03/17 10:35 DC 10/03/17 10:54 1 GM Magnesium Oxide (Mag-Ox Tab) 400 mg NOW STAT PO 10/03/17 11:27 10/03/17 11:28 DC 10/03/17 11:49 400 MG Aspirin (Aspirin Chew) 324 mg NOW STAT PO 10/03/17 11:41 10/03/17 11:42 DC 10/03/17 11:49 324 MG ECG Per My Interpretation Indication: SOB/dyspnea Rate (beats per minute): 92 Rhythm: normal sinus Findings: no ectopy, other (No ST elevation. No PVC.) ED Course 1027: The patient was evaluated in room B12B. A complete history and physical exam was performed. 1033: Ordered Rocephin 1gm IV, Duoneb 3ml INH, Solu-Medrol 125mg IV 1127: Ordered Magnesium Oxide 400mg PO 1141: Ordered Aspirin 324mg PO 1146: Upon reexamination the patient is resting. I discussed results and treatment plan with the patient. He verbalizes agreement and understanding. The patient will be evaluated for further management. 1201: I discussed the patient's case with Dr. Solis, [facility] Hospitalist. The patient will be evaluated for further management and care. Medical Decision The patient is a 76 year old male who presents to the ED with complaints of shortness of breath. Differential diagnoses considered include COPD exacerbation, pneumonia or bronchitis, anemia, electrolyte imbalance, PE, DC, CHF. There is no leukocytosis or concerning anemia. Electrolyte testing shows a low magnesium at 1.6, no kidney failure. No hepatitis. Chest x-ray shows an area of congestion at the left base which may be chronic or possibly secondary to an acute infiltrate. The film does though looks similar to previous films. There was no pneumothorax or heart failure. EKG shows a normal sinus rhythm with a rate of 92, no acute ischemia. Cardiac enzyme testing 1 does show a troponin elevation, this could be consistent with cardiac injury or strain. There was no coagulopathy. The patient received IV Solu-Medrol, oral magnesium and oral aspirin. He was given a DuoNeb and IV ceftriaxone. The patient requires a hospital stay. He is dyspneic on exertion, he has a history of COPD, he has an elevation to his cardiac troponin. I did speak with the patient and case management. The on-call hospitalist was consulted. Patient is feeling improved since his ED treatment. Medication Reconcilliation Current Medication List: was personally reviewed by me Blood Pressure Screening Patient's blood pressure: Elevated blood pressure Monitored by hospitalist. Consults Time Called: 1142 Consulting Physician: Rm Zuniga Hospitalist Returned Call: 1201 I discussed the patient's case with Rm Zuniga Hospitalist. The patient will be evaluated for further management and care. Impression Primary Impression: SOB (shortness of breath) Additional Impressions: PNA (pneumonia) Elevated troponin Scribe Attestation The scribe's documentation has been prepared under my direction and personally reviewed by me in its entirety. I confirm that the note above accurately reflects all work, treatment, procedures, and medical decision making performed by me. Departure Information Dispostion Being Evaluated By Hospitalist Referrals Abram Owens M.D. (PCP) Patient Instructions My [facility] Problem Qualifiers
[2017-10-03] MEDS ORDERED: HydrALAZINE HCL 20 MG/ML VIAL IV. STA (15:11)
[2017-10-03] MEDS ORDERED: GABAPENTIN 600 MG TAB PO SCH (15:15)
[2017-10-03] MEDS ORDERED: LORAZEPAM 1 MG TAB PO PRN (15:15)
--- NOTE | 2017-10-03 15:28 | History and Physical ---
History & Physical Date & Time of Service: Oct 03, 2017 at 15:15 Chief Complaint: Copd, Elevated Troponin Primary Care Physician: Abram Owens M.D. History of Present Illness Source: patient, family Patient is a 76 yo male who presents to the hospital for complaints of progressively worsening SOB, cough, and XIAO that initially started around 1.5 weeks ago. The patient has noticed even with walking short distances and with oxygen, he still feels he is unable to catch his breath. He does also report having nasal congestion and post nasal drainage. He reports he has been experiencing headaches with this as well. The cough was productive initially of yellow phlegm but now has been clear and more copious. Does report intermittent chest tightness but no chest pain. He denies any sick contacts. His smokes but not in the house, and the patient states he has not smoked in 1.5 years. The patient also reports that he fell on Wednesday while he was inebriated but did not lose consciousness or have any severe injuries from that event. He states he has been complaint with his medications and nebulizers but feels that nothing has helped thus far. The patient reports never experiencing withdrawal from alcohol but does admit he drinks about 6-8 beers a day and on some occasions he drinks that plus liquor containing drinks. Past Medical/Surgical History Medical Problems: (1) COPD (chronic obstructive pulmonary disease) (2) ETOH abuse Family History Patient reports no known family medical history. Social History Smoking Status: Former Smoker (quit 1.5 years ago) Drug Use: none Marital Status: Housing status: lives with significant other Immunizations History of Influenza Vaccine: Yes Influenza Vaccine Date: Mar 12, 2017 Allergies Coded Allergies: No Known Allergies (Unverified , 10/03/17) Home Medications Scheduled Fluticasone Prop/Salmeterol (Advair Diskus 250/50 60 Dose), 1 PUFF INH BID Prednisone (Prednisone), 10 MG PO DAILY Roflumilast (Daliresp), 500 MG PO DAILY Thiamine Hcl (Vitamin B-1), 100 MG PO DAILY Scheduled PRN Albuterol Sulf (Proventil 0.083% 2.5MG/3ML), 1 VIAL NEB QID PRN for SOB/Wheezing Albuterol Sulfate (Proair Respiclick), 2 PUFF PO Q4H PRN for SOB/Wheezing Review of Systems Constitutional: No fever, No chills, No sweats, No weakness Eyes: + redness, No worsening of vision, No eye pain, No diplopia ENT: + nasal symptoms, No unusual epistaxis, No sore throat, No trouble swallowing Respiratory: + cough, + sputum, + shortness of breath, + dyspnea on exertion Cardiovascular: No chest pain, No edema, No palpitations Abdomen: No pain, No nausea, No vomiting, No diarrhea Musculoskeletal: No joint pain, No muscle pain, No swelling Genitourinary - Male: No hematuria, No dysuria, No urinary frequency, No urinary urgency Neurologic: + numbness/tingling, No paralysis, No weakness, No vertigo Psychiatric: + substance abuse, No depression symptoms, No anxiety Endocrine: No excessive thirst, No excessive urination, No problem reported Hematologic / Lymphatic: No abnormal bleeding/bruising, No clotting problems Integumentary: + rash, No itch, No new/changing skin lesions Physical Exam Vital Signs Date Time Temp Pulse Resp B/P (MAP) Pulse Ox O2 Delivery O2 Flow Rate FiO2 10/03/17 14:15 83 18 164/95 99 Nasal Cannula 2.0 10/03/17 13:30 88 16 173/105 99 Nasal Cannula 2.0 10/03/17 13:30 36.6 73 18 194/104 99 Nasal Cannula 2.0 10/03/17 12:16 83 16 173/107 99 Nasal Cannula 2.0 10/03/17 11:47 86 16 173/106 98 Nasal Cannula 2.0 10/03/17 11:04 99 Nasal Cannula 2.0 10/03/17 11:00 86 16 162/89 99 Nasal Cannula 2.0 10/03/17 10:55 95 Nasal Cannula 2.0 10/03/17 10:55 95 Nasal Cannula 2.0 10/03/17 10:52 103 10/03/17 10:17 36.6 122 24 165/87 95 Nasal Cannula 2.0 General Appearance: WD/WN, no apparent distress Head: normocephalic, atraumatic Eyes: PERRL, EOMI ENT: hearing grossly normal Neck: supple, no JVD, no carotid bruits, trachea midline Respiratory/Chest: chest non-tender, no respiratory distress, no accessory muscle use, + decreased breath sounds Cardiovascular: regular rate, rhythm, no edema, no gallop, no JVD Abdomen/GI: normal bowel sounds, non tender, soft, no organomegaly Back: no CVA tenderness, no muscle spasm, + pertinent finding (papular rash ) Extremities/Musculoskelatal: no calf tenderness, normal capillary refill, no pedal edema Neurologic/Psych: no motor/sensory deficits, alert, normal mood/affect, oriented x 3 Skin: normal color, warm/dry, + rash Diagnostics Laboratory Results Results Past 24 Hours Test 10/03/17 10:52 Range/Units White Blood Count 9.48 4.8-10.8 K/uL Red Blood Count 4.44 4.7-6.1 M/uL Hemoglobin 15.6 14.0-18.0 g/dL Hematocrit 43.2 42-52 % Mean Corpuscular Volume 97.3 80-100 fL Mean Corpuscular Hemoglobin 35.1 25-34 pg Mean Corpuscular Hemoglobin Concent 36.1 32-36 g/dl Platelet Count 175 130-400 K/uL Mean Platelet Volume 9.4 7.4-10.4 fL Neutrophils (%) (Auto) 85.5 % Lymphocytes (%) (Auto) 7.9 % Monocytes (%) (Auto) 5.7 % Eosinophils (%) (Auto) 0.5 % Basophils (%) (Auto) 0.2 % Neutrophils # (Auto) 8.10 1.4-6.5 K/uL Lymphocytes # (Auto) 0.75 1.2-3.4 K/uL Monocytes # (Auto) 0.54 0.11-0.59 K/uL Eosinophils # (Auto) 0.05 0-0.5 K/uL Basophils # (Auto) 0.02 0-0.2 K/uL RDW Standard Deviation 46.4 36.4-46.3 fL RDW Coefficient of Variation 13.0 11.5-14.5 % Immature Granulocyte % (Auto) 0.2 % Immature Granulocyte # (Auto) 0.02 0.00-0.02 K/uL Prothrombin Time 10.6 9.0-12.0 SECONDS Prothromb Time International Ratio 1.0 0.9-1.1 Activated Partial Thromboplast Time 24.7 21.0-31.0 SECONDS Partial Thromboplastin Ratio 1.0 Sodium Level 137 136-145 mmol/L Potassium Level 3.7 3.5-5.1 mmol/L Chloride Level 101 98-107 mmol/L Carbon Dioxide Level 27 21-32 mmol/L Anion Gap 9.0 3-11 mmol/L Blood Urea Nitrogen 10 7-18 mg/dl Creatinine 0.90 0.60-1.40 mg/dl Estimated GFR () 97.2 Estimated GFR (Non- 83.8 BUN/Creatinine Ratio 10.5 10-20 Random Glucose 100 70-99 mg/dl Calcium Level 9.2 8.5-10.1 mg/dl Magnesium Level 1.6 1.8-2.4 mg/dl Total Bilirubin 1.2 0.2-1 mg/dl Aspartate Amino Transf (AST/SGOT) 29 15-37 U/L Alanine Aminotransferase (ALT/SGPT) 24 12-78 U/L Alkaline Phosphatase 87 45-117 U/L Troponin I 0.234 0-0.045 ng/ml Total Protein 7.1 6.4-8.2 gm/dl Albumin 3.2 3.4-5.0 gm/dl Globulin 3.9 2.5-4.0 gm/dl Albumin/Globulin Ratio 0.8 0.9-2 Microbiology Results 10/03/17 Blood Culture, Received Pending 10/03/17 Blood Culture, Received Pending Impression Assessment and Plan COPD EXACERBATION: -chronically on 2L of oxygen and prednisone 10mg -continue IV steroids -continue nebs q 4 hours -CXR shows LLL infiltrate that was present on prior xray -start levaquin -continue Daliresp TROPONIN ELEVATION: -likely demand ischemia related to tachycardia -obtain serial troponins -monitor in tele overnight -initial EKG does not show any ST or T wave abnormalities, repeat EKG in AM CHRONIC ALCOHOL DEPENDANCE: -patient is a daily drinker, denies any prior hx of withdrawal -place patient on DT precautions and gabapentin as per alcohol withdrawal protocol -continue thiamine -if IV fluids are required will start banana bag CHRONIC ASPIRATION: -speech eval last admission and barium swallow suggest some silent aspiration but video swallow study suggested no aspiration -continue current diet -has outpatient follow up arranged CHRONIC SINUSITIS: -currently denies any symptoms -consider nasal steroid spray Advanced Directives Existing Living Will: No Existing Power of Package Car Driver: No Resuscitation Status VTE Prophylaxis Will order VTE Prophylaxis: Yes
[2017-10-03] MEDS ORDERED: MAGNESIUM SULFATE 1GM / D5W 100 ML IV ONE (15:30)
[2017-10-03] MEDS ORDERED: GABAPENTIN 1200MG LOADING DOSE PO SCH (16:00)
[2017-10-03] MEDS: METHYLPREDNISOLONE IV 40 MG in SYRINGE 0 ML IV SCH (17:26)
[2017-10-03] MEDS: FLUTICASONE/SALMETEROL 250/50 (ADVAIR) 14 PUFF/1 INHALER INH SCH (20:40)
[2017-10-03] MEDS: ENOXAPARIN 40 MG/0.4 ML SYR SC SCH (20:40)
[2017-10-03] MEDS: GABAPENTIN 600MG Q6H DOSE PO SCH (20:40)
[2017-10-04] VITALS (10 sets, daily range): BP systolic 108–131; BP diastolic 53–90; PULSE 79–120; TEMP 36.3–37; O2SAT 95–99
[2017-10-04] MEDS: METHYLPREDNISOLONE IV 40 MG in SYRINGE 0 ML IV SCH ×3 (02:46→18:00)
[2017-10-04] MEDS: GABAPENTIN 600MG Q6H DOSE PO SCH (06:24)
[2017-10-04 07:07] LABS: HEMATOCRIT 39.2 % (42-52); HEMOGLOBIN 13.5 g/dL (14.0-18.0); MEAN CORPUSCULAR HEMOGLOBIN 33.8 pg (25-34); MEAN CORPUSCULAR HGB CONC 34.4 g/dl (32-36); MEAN PLATELET VOLUME 9.5 fL (7.4-10.4); PLATELET COUNT 174 K/uL (130-400); RED CELL DISTRIBUTION WIDTH CV 13.2 % (11.5-14.5); RED CELL DISTRIBUTION WIDTH SD 47.4 fL (36.4-46.3)
[2017-10-04 07:29] LABS: CALCIUM 8.4 mg/dl (8.5-10.1); CREATININE 1.04 mg/dl (0.60-1.40)
[2017-10-04] MEDS: THIAMINE HCL 100 MG TAB PO SCH (07:50)
[2017-10-04] MEDS: ROFLUMILAST 500 MCG TAB PO SCH (07:50)
[2017-10-04] MEDS: FLUTICASONE/SALMETEROL 250/50 (ADVAIR) 14 PUFF/1 INHALER INH SCH ×2 (07:51→20:52)
[2017-10-04] MEDS: IPRATROPIUM BROMIDE NEB SOLN 0.02% 2.5 ML VIAL INH SCH ×3 (09:49→19:52)
[2017-10-04] MEDS: LEVALBUTEROL 1.25MG/0.5ML NEB INH SCH ×3 (09:49→19:52)
[2017-10-04] MEDS: LIDODERM (LIDOCAINE) PATCH 5% TD SCH (09:51)
--- NOTE | 2017-10-04 10:25 | Clinical Documentation Query ---
Dr. MACEDO,STUART : CLINICAL DOCUMENTATION QUERIES QUERY 1 OF 2 H&P documentation notes CXR "shows LLL infiltrate". Patient was started on IV Levaquin in addition to nebs, steroids, and supplemental O2. As appropriate, consider capture of this clinical information in the form of a clinical diagnosis as suggested below. Thank you. In your clinical opinion is this patient being managed for: ( ) (Possible) Pneumonia ( ) Not Agree ( ) Other explanation of clinical findings (Please Explain. If no explanation given, this would be considered a no response.) ( ) Unable to determine ( ) Need to Discuss (Please call CDS via extension or qliq. If no interaction occurs this is considered a no response.) The medical record reflects the following clinical findings, treatment, and risk factors. Clinical Indicators: As above Treatment: As above Risk Factors: COPD, smoking history QUERY 2 OF 2 H&P states patient uses 2 L/min of oxygen supplementally via nasal cannula in continuous fashion. As appropriate, consider capture of this clinical information as suggested below. Thank you. In your clinical opinion is this patient being managed for: ( ) Chronic respiratory failure with hypoxia ( ) Not Agree ( ) Other explanation of clinical findings (Please Explain. If no explanation given, this would be considered a no response.) ( ) Unable to determine ( ) Need to Discuss (Please call CDS via extension or qliq. If no interaction occurs this is considered a no response.) The medical record reflects the following clinical findings, treatment, and risk factors. Clinical Indicators: As above Treatment: Ongoing provision of supplmental O2 Risk Factors: COPD/smoking history Please clarify and document your clinical opinion in the progress notes and discharge summary. Terms such as "probable", "suspected", "likely", "questionable", "possible", or "still to be ruled out" are acceptable. IF IN AGREEMENT, YOU MUST DOCUMENT ABOVE DIAGNOSTIC STATEMENT IN DAILY PROGRESS NOTES AND DISCHARGE SUMMARY. This document is not part of the patient's record. Thank You, Uday Franco, FRANCES [phone]
[2017-10-04] MEDS ORDERED: SODIUM CHLORIDE 0.9% 1000ML 1,000 ML IV SCH (11:44)
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
[2017-10-04] MEDS: GABAPENTIN 600MG Q8H DOSE PO SCH ×2 (14:30→20:52)
[2017-10-04] MEDS ORDERED: CEFEPIME CONSULT ACTIVE PRN (14:45)
[2017-10-04] MEDS: CEFEPIME IV 2,000 MG in SYRINGE 7.5 ML IV SCH (15:40)
--- NOTE | 2017-10-04 17:14 | Progress Note ---
Medicine Progress Note Date & Time of Visit: Oct 04, 2017 at 17:08. Subjective Patient doing slightly better, is back on 2L oxygen today. No overnight events noted. Tolerating PO and asking for a non-AHA regular diet. BP improved. Complains of pain along right posterior rib cage from his fall last Wednesday. No other complaints at this time. Has not been ambulating much yet. Objective Last 8 Hrs Date Time Temp Pulse Resp B/P (MAP) Pulse Ox O2 Delivery O2 Flow Rate FiO2 10/04/17 16:00 36.6 83 18 108/74 (85) 98 Nasal Cannula 2.0 10/04/17 16:00 Nasal Cannula 2.0 10/04/17 14:10 93 20 99 Nasal Cannula 2.0 10/04/17 12:00 Nasal Cannula 2.0 10/04/17 11:46 36.9 104 22 116/90 (99) 95 Nasal Cannula 10/04/17 09:49 114 22 99 Nasal Cannula 2.0 Physical Exam: GENERAL: Patient is in no acute distress. HEENT: No acute trauma, normocephalic, mucous membranes moist, no nasal congestion, no scleral icterus. Left lateral subconjunctival hemorrhage improving NECK: No stridor, trachea is midline, no JVD. LUNGS: Expiratory wheezes bilaterally, diminished breath sounds in bases, no rhonchi, breath sounds equal. HEART: Without murmurs gallops or rubs, regular rate and rhythm. ABDOMEN: Soft, nontender, bowel sounds positive, no hepatosplenomegaly EXTREMITIES: No cyanosis or edema, moving all 4 extremities without difficulty, no signs for acute trauma. NEUROLOGIC: Oriented x 3, no acute motor or sensory deficits, no focal weakness. SKIN: No rash, no jaundice, no diaphoresis. Laboratory Results: Last 24 Hours Test 10/03/17 18:30 10/04/17 00:32 10/04/17 06:28 10/04/17 12:44 Troponin I 0.130 ng/ml 0.090 ng/ml 0.063 ng/ml 0.058 ng/ml White Blood Count 5.30 K/uL Red Blood Count 4.00 M/uL Hemoglobin 13.5 g/dL Hematocrit 39.2 % Mean Corpuscular Volume 98.0 fL Mean Corpuscular Hemoglobin 33.8 pg Mean Corpuscular Hemoglobin Concent 34.4 g/dl RDW Standard Deviation 47.4 fL RDW Coefficient of Variation 13.2 % Platelet Count 174 K/uL Mean Platelet Volume 9.5 fL Sodium Level 138 mmol/L Potassium Level 4.0 mmol/L Chloride Level 104 mmol/L Carbon Dioxide Level 27 mmol/L Anion Gap 7.0 mmol/L Blood Urea Nitrogen 18 mg/dl Creatinine 1.04 mg/dl Est Creatinine Clear Calc Drug Dose 50.6 ml/min Estimated GFR () 81.6 Estimated GFR (Non- 70.4 BUN/Creatinine Ratio 17.2 Random Glucose 144 mg/dl Calcium Level 8.4 mg/dl Magnesium Level 2.2 mg/dl Triglycerides Level 56 mg/dl Cholesterol Level 143 mg/dl HDL Cholesterol 78 mg/dl LDL Cholesterol, Calculated 54 mg/dl VLDL Cholesterol, Calculated 11 mg/dl Cholesterol/HDL Ratio 1.8 Date/Time Source Procedure Growth Status 10/04/17 03:00 Sputum Expectorated Sputum Gram Stain - Final Resulted 10/04/17 03:00 Sputum Expectorated Sputum Sputum Culture Pending Resulted Assessment & Plan COPD EXACERBATION: -chronically on 2L of oxygen and prednisone 10mg -continue IV steroids -continue nebs q 4 hours -CXR shows LLL infiltrate that was present on prior xray -started levaquin in ER; changed to cefepime today day #1 as patient reports he just completed an 8 day course of PO levaquin about a month ago -continue Daliresp -Pulmonary consulted, patient well known to their service and concern over the persistent LLL infiltrate TROPONIN ELEVATION: -likely demand ischemia related to tachycardia -serial troponins are down trending -monitor in tele overnight, no events, can transfer to medical -EKG does not show any ST or T wave abnormalities RECENT FALL: secondary to alcohol intoxication -pain along right posterior side -lidoderm patch and PRN norco ordered CHRONIC ALCOHOL DEPENDANCE: -patient is a daily drinker, denies any prior hx of withdrawal -place patient on DT precautions and gabapentin as per alcohol withdrawal protocol -continue thiamine -if IV fluids are required will start banana bag CHRONIC ASPIRATION: -speech eval last admission and barium swallow suggest some silent aspiration but video swallow study suggested no aspiration -continue current diet -has outpatient follow up arranged CHRONIC SINUSITIS: -currently denies any symptoms -consider nasal steroid spray if ongoing symptoms Current Inpatient Medications: Current Inpatient Medications Medications (Trade) Dose Ordered Sig/Rigoberto Route Start Time Stop Time Status Last Admin Dose Admin Methylprednisolone Sodium Succinate 40 mg/Syringe 0.64 ml @ 1.5 mls/min Q8H IV 10/03/17 18:00 11/02/17 17:59 10/04/17 09:44 1.5 MLS/MIN Enoxaparin Sodium (Lovenox Inj) 40 mg QPM SC 10/03/17 21:00 10/06/17 11:46 10/03/17 20:40 40 MG Acetaminophen (Tylenol Tab) 650 mg Q4H PRN PO 10/03/17 12:45 11/02/17 12:44 10/03/17 20:41 650 MG Ondansetron HCl (Zofran Inj) 4 mg Q6H PRN IV 10/03/17 12:45 11/02/17 12:44 Polyethylene (Miralax Powder Packet) 17 gm DAILY PRN PO 10/03/17 12:45 11/02/17 12:44 Lorazepam (Ativan Tab) 1 mg ONE PRN PO 10/03/17 15:15 Salmeterol Xinafoate/ Fluticasone (Advair Diskus 250/50 Inh) 1 puff BID INH 10/03/17 21:00 11/02/17 20:59 10/04/17 07:51 1 PUFF Roflumilast (Daliresp Tab) 500 mcg DAILY PO 10/04/17 09:00 11/03/17 08:59 10/04/17 07:50 500 MCG Thiamine HCl (Vitamin B-1 Tab) 100 mg DAILY PO 10/04/17 09:00 11/03/17 08:59 10/04/17 07:50 100 MG Gabapentin (Neurontin Tab) 600 mg Q8H PO 10/04/17 14:00 10/05/17 06:01 10/04/17 14:30 600 MG Gabapentin (Neurontin Tab) 600 mg Q12H PO 10/05/17 18:00 10/06/17 06:01 Gabapentin (Neurontin Tab) 600 mg Q24H PO 10/07/17 06:00 10/07/17 06:01 Ipratropium [place] (Atrovent 0.02% 0.5MG/2.5ML Neb) 0.5 mg Q6R INH 10/04/17 09:30 11/03/17 09:29 10/04/17 14:03 0.5 MG Levalbuterol (Xopenex 1.25MG/ 0.5ML Neb) 1.25 mg Q6R INH 10/04/17 09:30 11/03/17 09:29 10/04/17 14:03 1.25 MG Lidocaine (Lidoderm Patch 5%) 1 patch QAM TD 10/04/17 09:30 11/03/17 09:29 10/04/17 09:51 1 PATCH Miscellaneous (Remove Lidoderm Patch) 1 ea DAILY@21 N/A 10/04/17 21:00 11/03/17 20:59 Acetaminophen/ Hydrocodone Bitart ([place] 5/325 Tab) 1 tab Q6 PRN PO 10/04/17 09:30 10/18/17 09:29 Sodium Chloride 1,000 ml @ 15 mls/hr Q24H IV 10/04/17 11:44 10/05/17 11:43 Cefepime HCl 2000 mg/Syringe 20 ml @ 5 mls/min Q12H IV 10/04/17 15:00 10/11/17 14:59 10/04/17 15:40 5 MLS/MIN Cefepime HCl (Consult) 1 ea UD PRN N/A 10/04/17 14:45 11/03/17 14:44
[2017-10-04] MEDS: HYDROCODONE/ACETAMIN 5/325MG TAB PO PRN (18:06)
[2017-10-04] MEDS: ENOXAPARIN 40 MG/0.4 ML SYR SC SCH (20:52)
[2017-10-04] MEDS ORDERED: CEFEPIME IV 2,000 MG in DEXTROSE 5% 100ML 100 ML IV SCH (22:00)
[2017-10-05] VITALS (10 sets, daily range): BP systolic 106–150; BP diastolic 68–83; PULSE 80–103; TEMP 36.4–36.6; O2SAT 97–98
[2017-10-05] MEDS: HYDROCODONE/ACETAMIN 5/325MG TAB PO PRN ×2 (00:58→20:20)
[2017-10-05] MEDS: METHYLPREDNISOLONE IV 40 MG in SYRINGE 0 ML IV SCH ×3 (01:47→16:55)
[2017-10-05] MEDS: IPRATROPIUM BROMIDE NEB SOLN 0.02% 2.5 ML VIAL INH SCH ×4 (02:21→19:24)
[2017-10-05] MEDS: LEVALBUTEROL 1.25MG/0.5ML NEB INH SCH ×4 (02:21→19:16)
[2017-10-05] MEDS: CEFEPIME IV 2,000 MG in SYRINGE 7.5 ML IV SCH ×2 (03:29→16:58)
[2017-10-05] MEDS: GABAPENTIN 600MG Q8H DOSE PO SCH (05:59)
[2017-10-05] MEDS: THIAMINE HCL 100 MG TAB PO SCH (07:31)
[2017-10-05] MEDS: ROFLUMILAST 500 MCG TAB PO SCH (07:31)
[2017-10-05] MEDS: FLUTICASONE/SALMETEROL 250/50 (ADVAIR) 14 PUFF/1 INHALER INH SCH ×2 (07:31→20:20)
[2017-10-05] MEDS: LIDODERM (LIDOCAINE) PATCH 5% TD SCH (07:32)
--- NOTE | 2017-10-05 09:02 | PULMONARY PROGRESS NOTE ---
DATE: 10/05/2017 SUBJECTIVE: The patient remains extremely dyspneic associated with even modest to minimal exertion. The patient came back to bed after washing up and urinating and was extremely dyspneic, using the accessory muscles of respiration and had 1-2 word dyspnea. After several minutes, he was able to converse with me but clearly has little to virtually no respiratory reserve. He is trying his best to expectorate and bring up some of the phlegm, but he is having difficulty doing so. He is tolerating his medications, vibration vest and aerosolized bronchodilator. PHYSICAL EXAMINATION: GENERAL: Well-developed, tachypneic and dyspneic white male. VITAL SIGNS: Temperature 36.4, pulse 86 and regular, respiratory rate 20, blood pressure 129/73, O2 sat 98% on 2 liters. SKIN: Warm and dry. HEENT: Atraumatic, normocephalic. PERRLA. EOMI. Conjunctivae pink. Sclerae nonicteric. Fundi benign. Tympanic membranes within normal limits. Pharyngeal exam is intact. NECK: Neck veins are not distended at 45 degrees. No adenopathy. LUNGS: Distant P and A with hyperresonance. No audible wheezes. Marked prolongation of the expiratory phase of breathing. CARDIAC: Regular rate and rhythm. I do not appreciate a gallop. ABDOMEN: Soft, scaphoid. EXTREMITIES: No significant pedal edema, clubbing or cyanosis. NEUROLOGIC: Intact. No lateralizing signs. LABORATORY DATA: Sputum still growing out gram-negative bacilli, not fully identified. White count 5300, H and H 13.5 and 39.2. Chemistry profile otherwise unremarkable. Troponin level is coming down. Chest x-ray is noted, showing advanced emphysema with persistent patchy airspace consolidation at the left lung base. OVERALL ASSESSMENT: Severe COPD exacerbation, currently on adequate therapy. I do not believe patient would tolerate bronchoscopic intervention after observing him now for 2 days following the most minimal of activity. I will cancel the procedure tomorrow and restart his Lovenox therapy.
--- NOTE | 2017-10-05 10:27 | Clinical Documentation Query ---
BECKY Ortiz : CLINICAL DOCUMENTATION QUERIES QUERY 1 OF 2 H&P documentation notes CXR "shows LLL infiltrate". Patient was started on IV Levaquin in addition to nebs, steroids, and supplemental O2. As appropriate, consider capture of this clinical information in the form of a clinical diagnosis as suggested below. Thank you. In your clinical opinion is this patient being managed for: (X ) (Possible) Pneumonia ( ) Not Agree ( ) Other explanation of clinical findings (Please Explain. If no explanation given, this would be considered a no response.) ( ) Unable to determine ( ) Need to Discuss (Please call CDS via extension or qliq. If no interaction occurs this is considered a no response.) The medical record reflects the following clinical findings, treatment, and risk factors. Clinical Indicators: As above Treatment: As above Risk Factors: COPD, smoking history QUERY 2 OF 2 H&P states patient uses 2 L/min of oxygen supplementally via nasal cannula in continuous fashion. As appropriate, consider capture of this clinical information as suggested below. Thank you. In your clinical opinion is this patient being managed for: ( X) Chronic respiratory failure with hypoxia ( ) Not Agree ( ) Other explanation of clinical findings (Please Explain. If no explanation given, this would be considered a no response.) ( ) Unable to determine ( ) Need to Discuss (Please call CDS via extension or qliq. If no interaction occurs this is considered a no response.) The medical record reflects the following clinical findings, treatment, and risk factors. Clinical Indicators: As above Treatment: Ongoing provision of supplmental O2 Risk Factors: COPD/smoking history Please clarify and document your clinical opinion in the progress notes and discharge summary. Terms such as "probable", "suspected", "likely", "questionable", "possible", or "still to be ruled out" are acceptable. IF IN AGREEMENT, YOU MUST DOCUMENT ABOVE DIAGNOSTIC STATEMENT IN DAILY PROGRESS NOTES AND DISCHARGE SUMMARY. This document is not part of the patient's record. Thank You, Uday Franco, FRANCES [phone]
[2017-10-05] MEDS ORDERED: THIAMINE HCL 100 MG TAB PO STA ×2 (13:56→14:42)
[2017-10-05] MEDS ORDERED: LORAZEPAM 2 MG/ML 1 ML VIAL IV PRN ×2 (14:00)
[2017-10-05] MEDS: GABAPENTIN 600MG Q12H DOSE PO SCH (16:55)
[2017-10-05] MEDS: ENOXAPARIN 40 MG/0.4 ML SYR SC SCH (20:21)
[2017-10-06] VITALS (10 sets, daily range): BP systolic 126–150; BP diastolic 66–89; PULSE 72–101; TEMP 36.5–36.7; O2SAT 89–99
[2017-10-06] MEDS: LEVALBUTEROL 1.25MG/0.5ML NEB INH SCH ×4 (01:47→18:52)
[2017-10-06] MEDS: IPRATROPIUM BROMIDE NEB SOLN 0.02% 2.5 ML VIAL INH SCH ×4 (01:47→18:52)
[2017-10-06] MEDS: CEFEPIME IV 2,000 MG in SYRINGE 7.5 ML IV SCH (02:19)
[2017-10-06] MEDS: METHYLPREDNISOLONE IV 40 MG in SYRINGE 0 ML IV SCH ×3 (02:19→18:58)
[2017-10-06 05:42] LABS: HEMATOCRIT 37.2 % (42-52); HEMOGLOBIN 12.8 g/dL (14.0-18.0); MEAN CELL VOLUME 99.7 fL (80-100); MEAN CORPUSCULAR HEMOGLOBIN 34.3 pg (25-34); MEAN CORPUSCULAR HGB CONC 34.4 g/dl (32-36); MEAN PLATELET VOLUME 9.4 fL (7.4-10.4); PLATELET COUNT 145 K/uL (130-400); RED CELL DISTRIBUTION WIDTH CV 13.3 % (11.5-14.5); RED CELL DISTRIBUTION WIDTH SD 48.6 fL (36.4-46.3)
[2017-10-06 06:17] LABS: CREATININE 0.94 mg/dl (0.60-1.40)
[2017-10-06] MEDS: FLUTICASONE/SALMETEROL 250/50 (ADVAIR) 14 PUFF/1 INHALER INH SCH ×2 (07:34→18:59)
[2017-10-06] MEDS: THIAMINE HCL 100 MG TAB PO SCH (07:35)
[2017-10-06] MEDS: ROFLUMILAST 500 MCG TAB PO SCH (07:35)
[2017-10-06] MEDS: LIDODERM (LIDOCAINE) PATCH 5% TD SCH (07:35)
[2017-10-06] MEDS: MULTI-VITAMIN INFUSION INJ 10 ML, THIAMINE HCL INJ 100 MG, FoLIC ACID INJ 1 MG in SODIU... IV SCH (09:28)
[2017-10-06] MEDS ORDERED: LORAZEPAM 1 MG TAB PO PRN (09:45)
[2017-10-06] MEDS ORDERED: LORAZEPAM 0.5 MG TAB PO PRN (09:45)
[2017-10-06] MEDS ORDERED: CONSULT PHARMACY PRN (10:31)
--- NOTE | 2017-10-06 11:54 | PULMONARY PROGRESS NOTE ---
DATE: 10/06/2017 SUBJECTIVE: The patient feels somewhat better today. He is able to produce phlegm and appears to be expectorating. The identification of the gram negative and sputum is as expected Pseudomonas aeruginosa. He was switched to imipenem by the hospitalist, Dr. Pichardo. Bronchoscopy have been canceled, as I was not sure he would tolerate the procedure. PHYSICAL EXAMINATION: VITAL SIGNS: Stable. Temperature 36.6, pulse 87 and regular, respiratory rate 22, blood pressure 148/89, O2 sat 99% on 2 liters. SKIN: Warm and dry. HEENT: Atraumatic, normocephalic, PERRLA, EOMI. Conjunctivae pink. Sclerae nonicteric. Fundi poorly visualized. NECK: Veins not distended at 45 degrees. No adenopathy in the supra or infraclavicular areas. LUNGS: Some rales at the left base, distant P and A. CARDIAC: Regular rhythm. I do not appreciate a gallop. ABDOMEN: Soft, scaphoid. EXTREMITIES: No significant pedal edema, clubbing or cyanosis. NEUROLOGIC: Intact. Sputum growing out Pseudomonas aeruginosa. ASSESSMENT AND PLAN: The patient apparently was to be switched from ceftazidime to imipenem. I suspect patient has localized bronchiectasis involving that left lower lobe with chronic conversation and persistent infiltrate. I doubt that there is a neoplastic process. The organism should be sensitive to ceftazidime as well as imipenem and appears to be only resistant to IV aztreonam. I would mobilize patient and this will help him with pulmonary toilet as well as anything else we can do from a mechanical standpoint. I am happy to follow him as an outpatient in 1 week. Consider bronchoscopic intervention if indicated and if I believe he could tolerate the procedure.
[2017-10-06] MEDS: DEXTROSE 5% IV SCH ×2 (12:02→19:09)
[2017-10-06] MEDS: CEFTAZIDIME IV SCH ×2 (12:02→19:09)
[2017-10-06] MEDS: GABAPENTIN 600MG Q12H DOSE PO SCH (16:13)
--- NOTE | 2017-10-06 18:05 | Progress Note ---
Medicine Progress Note Date & Time of Visit: October 05, 2017 at 19:03. Subjective Delayed entry date of service above Patient seen sitting up in bed Has some mild tachypnea and accessory muscle use Reports having dyspnea on minimal exertion around the room Has productive cough Reports mild tremors, denies hallucinations or diaphoresis No other symptoms Objective Last 8 Hrs Date Time Temp Pulse Resp B/P (MAP) Pulse Ox O2 Delivery O2 Flow Rate FiO2 10/05/17 15:30 Nasal Cannula 2.0 10/05/17 15:22 36.6 87 18 135/82 (99) 97 Nasal Cannula 2.0 10/05/17 14:16 99 18 97 Nasal Cannula 2.0 10/05/17 12:00 Nasal Cannula 2.0 10/05/17 11:59 36.5 103 20 125/68 (87) 98 Nasal Cannula 2.0 Physical Exam: General-oriented 3, not in distress, but does have some mild accessory muscle use and some effort with speaking Head- atraumatic Eyes- PERRL, EOMI, anicteric ENT- oropharynx clear Neck- supple, no JVD, no adenopathy, no thyromegaly Lungs-positive scattered wheezing bilaterally, crackles Heart- regular rhythm; no murmur, normal rate Abdomen- normal bowel sounds, soft, nontender, nondistended Extremities- no pretibial edema, no calf tenderness; peripheral pulses intact Neuro- alert, oriented x 3; no gross focal motor or sensory deficits Skin- warm & dry Laboratory Results: Last 24 Hours Test 10/05/17 05:38 Magnesium Level 2.1 mg/dl Assessment & Plan COPD EXACERBATION -chronically on 2L of oxygen and prednisone 10mg -continue IV steroids -continue nebs q 4 hours -CXR shows LLL infiltrate that was present on prior xray -started levaquin in ER; changed to cefepime today day #1 as patient reports he just completed an 8 day course of PO levaquin about a month ago -continue Daliresp -Pulmonary consulted, patient well known to their service and concern over the persistent LLL infiltrate -- continue Cefepime Solumedrol Nebs TROPONIN ELEVATION: -likely demand ischemia related to tachycardia -serial troponins are down trending -EKG does not show any ST or T wave abnormalities RECENT FALL: secondary to alcohol intoxication -pain along right posterior side -lidoderm patch and PRN norco ordered CHRONIC ALCOHOL DEPENDANCE: -patient is a daily drinker, denies any prior hx of withdrawal - Alc Withdrawal Protocol PRN Ativan CHRONIC ASPIRATION: -speech eval last admission and barium swallow suggest some silent aspiration but video swallow study suggested no aspiration -continue current diet -has outpatient follow up arranged CHRONIC SINUSITIS: -currently denies any symptoms -consider nasal steroid spray if ongoing symptoms Current Inpatient Medications: Current Inpatient Medications Medications (Trade) Dose Ordered Sig/Rigoberto Route Start Time Stop Time Status Last Admin Dose Admin Methylprednisolone Sodium Succinate 40 mg/Syringe 0.64 ml @ 1.5 mls/min Q8H IV 10/03/17 18:00 11/02/17 17:59 10/05/17 16:55 1.5 MLS/MIN Enoxaparin Sodium (Lovenox Inj) 40 mg QPM SC 10/03/17 21:00 10/06/17 11:46 10/04/17 20:52 40 MG Acetaminophen (Tylenol Tab) 650 mg Q4H PRN PO 10/03/17 12:45 11/02/17 12:44 10/03/17 20:41 650 MG Ondansetron HCl (Zofran Inj) 4 mg Q6H PRN IV 10/03/17 12:45 11/02/17 12:44 Polyethylene (Miralax Powder Packet) 17 gm DAILY PRN PO 10/03/17 12:45 11/02/17 12:44 Salmeterol Xinafoate/ Fluticasone (Advair Diskus 250/50 Inh) 1 puff BID INH 10/03/17 21:00 11/02/17 20:59 10/05/17 07:31 1 PUFF Roflumilast (Daliresp Tab) 500 mcg DAILY PO 10/04/17 09:00 11/03/17 08:59 10/05/17 07:31 500 MCG Thiamine HCl (Vitamin B-1 Tab) 100 mg DAILY PO 10/04/17 09:00 11/03/17 08:59 10/05/17 07:31 100 MG Gabapentin (Neurontin Tab) 600 mg Q12H PO 10/05/17 18:00 10/06/17 06:01 10/05/17 16:55 600 MG Gabapentin (Neurontin Tab) 600 mg Q24H PO 10/07/17 06:00 10/07/17 06:01 Ipratropium [place] (Atrovent 0.02% 0.5MG/2.5ML Neb) 0.5 mg Q6R INH 10/04/17 09:30 11/03/17 09:29 10/05/17 14:15 0.5 MG Levalbuterol (Xopenex 1.25MG/ 0.5ML Neb) 1.25 mg Q6R INH 10/04/17 09:30 11/03/17 09:29 10/05/17 14:15 1.25 MG Lidocaine (Lidoderm Patch 5%) 1 patch QAM TD 10/04/17 09:30 11/03/17 09:29 10/05/17 07:32 1 PATCH Miscellaneous (Remove Lidoderm Patch) 1 ea DAILY@21 N/A 10/04/17 21:00 11/03/17 20:59 Acetaminophen/ Hydrocodone Bitart ([place] 5/325 Tab) 1 tab Q6 PRN PO 10/04/17 09:30 10/18/17 09:29 10/05/17 00:58 1 TAB Cefepime HCl 2000 mg/Syringe 20 ml @ 5 mls/min Q12H IV 10/04/17 15:00 10/11/17 14:59 10/05/17 16:58 5 MLS/MIN Cefepime HCl (Consult) 1 ea UD PRN N/A 10/04/17 14:45 11/03/17 14:44 Lorazepam (Ativan Inj) 0.5 mg Q6H PRN IV 10/05/17 14:00 11/04/17 13:59 Lorazepam (Ativan Inj) 1 mg ONE PRN IV 10/05/17 14:00 Multivitamins 10 ml/Thiamine HCl 100 mg/Folic Acid 1 mg/Sodium Chloride 1,011.2 ml @ 75 mls/hr DAILY IV 10/06/17 09:00 11/05/17 08:59
--- NOTE | 2017-10-06 18:10 | Progress Note ---
Medicine Progress Note Date & Time of Visit: October 06, 2017 at 18:05. Subjective Seen resting in bed, doing puzzles States his breathing is somewhat improved today Still has some productive cough Denies chest pain States tremors have improved Denies hallucinations, diaphoresis Objective Last 8 Hrs Date Time Temp Pulse Resp B/P (MAP) Pulse Ox O2 Delivery O2 Flow Rate FiO2 10/06/17 14:48 36.6 81 20 139/66 (90) 98 Nasal Cannula 2.0 10/06/17 14:12 98 18 91 Nasal Cannula 2.0 10/06/17 12:00 Nasal Cannula 2.0 10/06/17 11:38 36.7 99 20 150/83 (105) 96 Nasal Cannula 2.0 Physical Exam: General-oriented 3, not in distress, but does have some mild accessory muscle use and some effort with speaking Eyes- anicteric ENT- oropharynx clear Neck- supple, no JVD Lungs-positive scattered wheezing bilaterally, crackles--improving Heart- regular rhythm; no murmur, normal rate Abdomen- normal bowel sounds, soft, nontender, nondistended Extremities- no pretibial edema, no calf tenderness; peripheral pulses intact Neuro- alert, oriented x 3; no gross focal motor or sensory deficits Skin- warm & dry Laboratory Results: Last 24 Hours Test 10/06/17 05:24 White Blood Count 9.00 K/uL Red Blood Count 3.73 M/uL Hemoglobin 12.8 g/dL Hematocrit 37.2 % Mean Corpuscular Volume 99.7 fL Mean Corpuscular Hemoglobin 34.3 pg Mean Corpuscular Hemoglobin Concent 34.4 g/dl RDW Standard Deviation 48.6 fL RDW Coefficient of Variation 13.3 % Platelet Count 145 K/uL Mean Platelet Volume 9.4 fL Creatinine 0.94 mg/dl Est Creatinine Clear Calc Drug Dose 57.0 ml/min Estimated GFR () 92.2 Estimated GFR (Non- 79.6 Magnesium Level 2.0 mg/dl Assessment & Plan COPD EXACERBATION -chronically on 2L of oxygen and prednisone 10mg -CXR shows LLL infiltrate that was present on prior xray -started levaquin in ER; changed to cefepime upon admission, patient reports he just completed an 8 day course of PO levaquin about a month ago -Pulmonary consulted, patient well known to their service and concern over the persistent LLL infiltrate Plan was to perform a bronchoscopy patient's oxygenation and respiratory status is still tenuous Sputum culture revealing Pseudomonas Change cefepime to ceftazidime Avoiding imipenem as this may increase risk for seizures Continue Solu-Medrol Continue nebs Appreciate Dr. Armstrong's recommendations TROPONIN ELEVATION: -likely demand ischemia related to tachycardia -serial troponins are down trending -EKG does not show any ST or T wave abnormalities RECENT FALL - secondary to alcohol intoxication - pain along right posterior side - lidoderm patch and PRN norco ordered Improving CHRONIC ALCOHOL DEPENDANCE: -patient is a daily drinker, denies any prior hx of withdrawal - Alc Withdrawal Protocol PRN Ativan -No signs of alcohol withdrawal today CHRONIC ASPIRATION: -speech eval last admission and barium swallow suggest some silent aspiration but video swallow study suggested no aspiration -continue current diet -has outpatient follow up arranged CHRONIC SINUSITIS: -currently denies any symptoms -consider nasal steroid spray if ongoing symptoms DVT prophylaxis Lovenox Disposition Lives at home PT OT to be ordered Anticipate discharge to home when medically stable and cleared by pulmonary service Current Inpatient Medications: Current Inpatient Medications Medications (Trade) Dose Ordered Sig/Rigoberto Route Start Time Stop Time Status Last Admin Dose Admin Methylprednisolone Sodium Succinate 40 mg/Syringe 0.64 ml @ 1.5 mls/min Q8H IV 10/03/17 18:00 11/02/17 17:59 10/06/17 09:28 1.5 MLS/MIN Acetaminophen (Tylenol Tab) 650 mg Q4H PRN PO 10/03/17 12:45 11/02/17 12:44 10/03/17 20:41 650 MG Ondansetron HCl (Zofran Inj) 4 mg Q6H PRN IV 10/03/17 12:45 11/02/17 12:44 10/06/17 00:16 4 MG Polyethylene (Miralax Powder Packet) 17 gm DAILY PRN PO 10/03/17 12:45 11/02/17 12:44 Salmeterol Xinafoate/ Fluticasone (Advair Diskus 250/50 Inh) 1 puff BID INH 10/03/17 21:00 11/02/17 20:59 10/06/17 07:34 1 PUFF Roflumilast (Daliresp Tab) 500 mcg DAILY PO 10/04/17 09:00 11/03/17 08:59 10/06/17 07:35 500 MCG Thiamine HCl (Vitamin B-1 Tab) 100 mg DAILY PO 10/04/17 09:00 11/03/17 08:59 10/06/17 07:35 100 MG Gabapentin (Neurontin Tab) 600 mg Q24H PO 10/07/17 06:00 10/07/17 06:01 Ipratropium [place] (Atrovent 0.02% 0.5MG/2.5ML Neb) 0.5 mg Q6R INH 10/04/17 09:30 11/03/17 09:29 10/06/17 14:11 0.5 MG Levalbuterol (Xopenex 1.25MG/ 0.5ML Neb) 1.25 mg Q6R INH 10/04/17 09:30 11/03/17 09:29 10/06/17 14:12 1.25 MG Lidocaine (Lidoderm Patch 5%) 1 patch QAM TD 10/04/17 09:30 11/03/17 09:29 10/06/17 07:35 1 PATCH Miscellaneous (Remove Lidoderm Patch) 1 ea DAILY@21 N/A 10/04/17 21:00 11/03/17 20:59 10/05/17 20:20 1 EA Acetaminophen/ Hydrocodone Bitart ([place] 5/325 Tab) 1 tab Q6 PRN PO 10/04/17 09:30 10/18/17 09:29 10/05/17 20:20 1 TAB Lorazepam (Ativan Inj) 0.5 mg Q6H PRN IV 10/05/17 14:00 11/04/17 13:59 Lorazepam (Ativan Inj) 1 mg ONE PRN IV 10/05/17 14:00 Multivitamins 10 ml/Thiamine HCl 100 mg/Folic Acid 1 mg/Sodium Chloride 1,011.2 ml @ 75 mls/hr DAILY IV 10/06/17 09:00 11/05/17 08:59 10/06/17 09:28 75 MLS/HR Miscellaneous Information (Pharmacy Consult) 1 ea UD PRN N/A 10/06/17 10:31 11/05/17 10:30 Lorazepam (Ativan Tab) 0.5 mg Q4H PRN PO 10/06/17 09:45 11/05/17 09:44 Lorazepam (Ativan Tab) 1 mg ONE PRN PO 10/06/17 09:45 11/05/17 09:44 Ceftazidime 2000 mg/Dextrose 60 ml @ 120 mls/hr Q8H IV 10/06/17 12:00 10/13/17 11:59 10/06/17 12:02 120 MLS/HR Enoxaparin Sodium (Lovenox Inj) 40 mg QAM SQ 10/07/17 09:00 11/06/17 08:59
[2017-10-06] MEDS: HYDROCODONE/ACETAMIN 5/325MG TAB PO PRN (18:36)
[2017-10-07] VITALS (13 sets, daily range): BP systolic 125–163; BP diastolic 60–98; PULSE 75–115; TEMP 36.4–36.7; O2SAT 93–99
[2017-10-07] MEDS: LEVALBUTEROL 1.25MG/0.5ML NEB INH SCH ×4 (01:55→19:00)
[2017-10-07] MEDS: IPRATROPIUM BROMIDE NEB SOLN 0.02% 2.5 ML VIAL INH SCH ×4 (01:55→19:00)
[2017-10-07] MEDS: METHYLPREDNISOLONE IV 40 MG in SYRINGE 0 ML IV SCH ×3 (02:29→17:29)
[2017-10-07] MEDS: CEFTAZIDIME IV SCH ×3 (04:16→20:44)
[2017-10-07] MEDS: DEXTROSE 5% IV SCH ×3 (04:16→20:44)
[2017-10-07] MEDS ORDERED: GABAPENTIN 600MG X1 DOSE PO SCH (06:00)
[2017-10-07 06:48] LABS: CREATININE 0.95 mg/dl (0.60-1.40)
[2017-10-07] MEDS: ROFLUMILAST 500 MCG TAB PO SCH (08:22)
[2017-10-07] MEDS: HYDROCODONE/ACETAMIN 5/325MG TAB PO PRN ×2 (08:22→15:22)
[2017-10-07] MEDS: THIAMINE HCL 100 MG TAB PO SCH (08:22)
[2017-10-07] MEDS: LIDODERM (LIDOCAINE) PATCH 5% TD SCH (08:23)
[2017-10-07] MEDS: FLUTICASONE/SALMETEROL 250/50 (ADVAIR) 14 PUFF/1 INHALER INH SCH ×2 (08:23→20:44)
[2017-10-07] MEDS: ENOXAPARIN 40 MG/0.4 ML SYR SQ SCH (08:23)
[2017-10-07] MEDS: MULTI-VITAMIN INFUSION INJ 10 ML, THIAMINE HCL INJ 100 MG, FoLIC ACID INJ 1 MG in SODIU... IV SCH (08:25)
--- NOTE | 2017-10-07 11:24 | DIAGNOSTIC IMAGING REPORT ---
R RIBS UNILATERAL WITH PA CHEST CLINICAL HISTORY: R/O RIB FX, FALL trauma. Pain. COMPARISON STUDY: 06/13/1999 8T none. 05/21/2017. FINDINGS: Right rib show no acute abnormality. Cortical margins are intact. Right lung is clear with no evidence for pneumothorax. Slightly progressive interstitial/ pleural reactive change left lung base. This is progressive compared to the prior several chest series. CT of the chest suggested as follow-up. IMPRESSION: 1. No acute abnormality of the right ribs. 2. No evidence pneumothorax. 3. Somewhat progressive pleural based density left base laterally. 4. CT of the chest is suggested as follow-up. The above report was generated using voice recognition software. It may contain grammatical, syntax or spelling errors. Electronically signed by: Joni Bond M.D. 10/07/2017 11:23 AM Dictated Date/Time: 10/07/2017 11:19 AM
--- NOTE | 2017-10-07 12:00 | PULMONARY PROGRESS NOTE ---
DATE: 10/07/2017 TIME: 0900 SUBJECTIVE: The patient was resting comfortably, but complained when awakened that his right lower rib area is very sore. He does not know if he pulled a muscle or broke a rib twisting in bed, although he has had these symptoms even before he was admitted. He feels a combination of pulmonary toilet and the change in IV antibiotics has been helpful. PHYSICAL EXAMINATION: CURRENT VITAL SIGNS: Temperature 36.4, pulse 75 and regular, respiratory rate 17, blood pressure 139/76, O2 sat 98% on 2 L. SKIN: Without lesion. HEENT: Atraumatic, normocephalic. PERRLA, EOMI. Conjunctivae pale. Sclerae nonicteric. Fundi poorly visualized. NECK: Neck veins are not distended at 45 degrees. LUNGS: Distant P and A with no audible wheezes or rhonchi. Marked prolongation of the expiratory phase of breathing. There is tenderness over the right lateral and anterior lateral 11th and 12th rib. No palpable disarticulation. No true CVA tenderness on that side. CARDIAC EXAMINATION: Sinus tachycardia. I do not appreciate a gallop. ABDOMEN: Soft, scaphoid. EXTREMITIES: No pedal edema, clubbing, or cyanosis. NEUROLOGIC: Intact. No lateralizing signs. LABORATORY DATA: Sputum grew out Pseudomonas aeruginosa (see sensitivity pattern), fully sensitive except resistant to IV aztreonam. The patient is currently on IV Solu-Medrol and IV ceftazidime. White count 9000, H and H 12.8/37.2. 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 I would place the patient on oral steroid therapy and continue taper and mobilize the patient. Rib x-rays have already been ordered and we will evaluate them and I would prepare the patient for possible discharge tomorrow or the next day on oral antibiotic therapy and a tapered course of prednisone along with pulmonary toilet. We will be happy to see him as an outpatient. If indeed he has rib fractures or even torn oblique chest wall muscles, a Lidoderm patch may be helpful for pain control.
[2017-10-07] MEDS ORDERED: CYCLOBENZAPRINE HCL 5 MG TAB PO ONE (18:50)
--- NOTE | 2017-10-07 18:51 | Progress Note ---
Medicine Progress Note Date & Time of Visit: October 07, 2017 at 18:51. Subjective Seen sitting up in bed, watching TV Comfortable not in distress states he continues to feel better Still having some right-sided rib pain, 8 out of 10 No other symptoms, in good spirits Denies other symptoms Objective Last 8 Hrs Date Time Temp Pulse Resp B/P (MAP) Pulse Ox O2 Delivery O2 Flow Rate FiO2 10/07/17 16:00 99 Nasal Cannula 2.0 10/07/17 15:09 36.6 90 20 134/66 (88) 99 Nasal Cannula 2.0 10/07/17 13:48 88 18 93 Nasal Cannula 2.0 10/07/17 12:00 Nasal Cannula 2.0 Physical Exam: General-oriented 3, not in distress, but does have some mild accessory muscle use and some effort with speaking Eyes- anicteric Neck- supple, no JVD Lungs-mild rales bilaterally no wheezing Heart- regular rhythm; no murmur, normal rate Abdomen- normal bowel sounds, soft, nontender, nondistended Extremities- no pretibial edema, no calf tenderness; Neuro- alert, oriented x 3; no gross focal motor or sensory deficits Skin- warm & dry Laboratory Results: Last 24 Hours Test 10/07/17 05:18 Creatinine 0.95 mg/dl Est Creatinine Clear Calc Drug Dose 59.2 ml/min Estimated GFR () 91.0 Estimated GFR (Non- 78.5 Assessment & Plan COPD EXACERBATION -chronically on 2L of oxygen and prednisone 10mg -CXR shows LLL infiltrate that was present on prior xray -started levaquin in ER; changed to cefepime upon admission, patient reports he just completed an 8 day course of PO levaquin about a month ago -Pulmonary consulted, patient well known to their service and concern over the persistent LLL infiltrate Plan was to perform a bronchoscopy patient's oxygenation and respiratory status is still tenuous Sputum culture revealing Pseudomonas Changed cefepime to ceftazidime Avoiding imipenem as this may increase risk for seizures Change Solu-Medrol to prednisone Continue nebs Possible discharge tomorrow Appreciate Dr. Armstrong's recommendations RIGHT RIB PAIN Started after the the patient's fall X-ray: No signs of fracture Continue Lidoderm patch Add Flexeril twice daily as needed TROPONIN ELEVATION: -likely demand ischemia related to tachycardia -serial troponins are down trending -EKG does not show any ST or T wave abnormalities RECENT FALL - secondary to alcohol intoxication - pain along right posterior side - lidoderm patch and PRN norco ordered Improving CHRONIC ALCOHOL DEPENDANCE: -patient is a daily drinker, denies any prior hx of withdrawal - Alc Withdrawal Protocol PRN Ativan -No signs of alcohol withdrawal today CHRONIC ASPIRATION: -speech eval last admission and barium swallow suggest some silent aspiration but video swallow study suggested no aspiration -continue current diet -has outpatient follow up arranged CHRONIC SINUSITIS: -currently denies any symptoms -consider nasal steroid spray if ongoing symptoms DVT prophylaxis Lovenox Disposition Lives at home PT OT to be ordered Anticipate discharge to home tomorrow once cleared by pulmonary service Current Inpatient Medications: Current Inpatient Medications Medications (Trade) Dose Ordered Sig/Rigoberto Route Start Time Stop Time Status Last Admin Dose Admin Methylprednisolone Sodium Succinate 40 mg/Syringe 0.64 ml @ 1.5 mls/min Q8H IV 10/03/17 18:00 11/02/17 17:59 10/07/17 17:29 1.5 MLS/MIN Acetaminophen (Tylenol Tab) 650 mg Q4H PRN PO 10/03/17 12:45 11/02/17 12:44 10/03/17 20:41 650 MG Ondansetron HCl (Zofran Inj) 4 mg Q6H PRN IV 10/03/17 12:45 11/02/17 12:44 10/06/17 00:16 4 MG Polyethylene (Miralax Powder Packet) 17 gm DAILY PRN PO 10/03/17 12:45 11/02/17 12:44 Salmeterol Xinafoate/ Fluticasone (Advair Diskus 250/50 Inh) 1 puff BID INH 10/03/17 21:00 11/02/17 20:59 10/07/17 08:23 1 PUFF Roflumilast (Daliresp Tab) 500 mcg DAILY PO 10/04/17 09:00 11/03/17 08:59 10/07/17 08:22 500 MCG Thiamine HCl (Vitamin B-1 Tab) 100 mg DAILY PO 10/04/17 09:00 11/03/17 08:59 10/07/17 08:22 100 MG Ipratropium [place] (Atrovent 0.02% 0.5MG/2.5ML Neb) 0.5 mg Q6R INH 10/04/17 09:30 11/03/17 09:29 10/07/17 13:47 0.5 MG Levalbuterol (Xopenex 1.25MG/ 0.5ML Neb) 1.25 mg Q6R INH 10/04/17 09:30 11/03/17 09:29 10/07/17 13:47 1.25 MG Lidocaine (Lidoderm Patch 5%) 1 patch QAM TD 10/04/17 09:30 11/03/17 09:29 10/07/17 08:23 1 PATCH Miscellaneous (Remove Lidoderm Patch) 1 ea DAILY@21 N/A 10/04/17 21:00 11/03/17 20:59 10/06/17 18:59 1 EA Acetaminophen/ Hydrocodone Bitart ([place] 5/325 Tab) 1 tab Q6 PRN PO 10/04/17 09:30 10/18/17 09:29 10/07/17 15:22 1 TAB Lorazepam (Ativan Inj) 0.5 mg Q6H PRN IV 10/05/17 14:00 11/04/17 13:59 Lorazepam (Ativan Inj) 1 mg ONE PRN IV 10/05/17 14:00 Multivitamins 10 ml/Thiamine HCl 100 mg/Folic Acid 1 mg/Sodium Chloride 1,011.2 ml @ 75 mls/hr DAILY IV 10/06/17 09:00 11/05/17 08:59 10/07/17 08:25 75 MLS/HR Miscellaneous Information (Pharmacy Consult) 1 ea UD PRN N/A 10/06/17 10:31 11/05/17 10:30 Lorazepam (Ativan Tab) 0.5 mg Q4H PRN PO 10/06/17 09:45 11/05/17 09:44 10/07/17 16:26 0.5 MG Ceftazidime 2000 mg/Dextrose 60 ml @ 120 mls/hr Q8H IV 10/06/17 12:00 10/17/17 11:59 10/07/17 12:09 120 MLS/HR Enoxaparin Sodium (Lovenox Inj) 40 mg QAM SQ 10/07/17 09:00 11/06/17 08:59 10/07/17 08:23 40 MG
[2017-10-08] VITALS (9 sets, daily range): BP systolic 126–152; BP diastolic 73–91; PULSE 68–112; TEMP 36.4–36.7; O2SAT 94–98
[2017-10-08] MEDS: IPRATROPIUM BROMIDE NEB SOLN 0.02% 2.5 ML VIAL INH SCH ×4 (01:59→19:14)
[2017-10-08] MEDS: LEVALBUTEROL 1.25MG/0.5ML NEB INH SCH ×4 (02:00→19:14)
[2017-10-08] MEDS: DEXTROSE 5% IV SCH ×3 (04:00→20:48)
[2017-10-08] MEDS: CEFTAZIDIME IV SCH ×3 (04:00→20:48)
[2017-10-08 06:30] LABS: CREATININE 0.84 mg/dl (0.60-1.40)
[2017-10-08] MEDS ORDERED: CYCLOBENZAPRINE HCL 5 MG TAB PO SCH (09:00)
[2017-10-08] MEDS: FLUTICASONE/SALMETEROL 250/50 (ADVAIR) 14 PUFF/1 INHALER INH SCH ×2 (09:42→19:14)
[2017-10-08] MEDS: THIAMINE HCL 100 MG TAB PO SCH (09:43)
[2017-10-08] MEDS: LIDODERM (LIDOCAINE) PATCH 5% TD SCH (09:43)
[2017-10-08] MEDS: ROFLUMILAST 500 MCG TAB PO SCH (09:44)
[2017-10-08] MEDS: ENOXAPARIN 40 MG/0.4 ML SYR SQ SCH (09:44)
[2017-10-08] MEDS: HYDROCODONE/ACETAMIN 5/325MG TAB PO PRN ×2 (09:50→20:51)
[2017-10-08] MEDS: MULTI-VITAMIN INFUSION INJ 10 ML, THIAMINE HCL INJ 100 MG, FoLIC ACID INJ 1 MG in SODIU... IV SCH (09:54)
[2017-10-08] MEDS ORDERED: OPTIRAY 320 IV PRN (11:15)
--- NOTE | 2017-10-08 12:04 | DIAGNOSTIC IMAGING REPORT ---
CT SCAN OF THE CHEST WITH IV CONTRAST CLINICAL HISTORY: Increasing left pleural disease. COMPARISON STUDY: Chest CT scans dated 06/23/2017, 05/20/2017, and 04/23/2017. TECHNIQUE: Following the IV administration of 93 cc of Optiray 320, CT scan of the thorax was performed from the thoracic inlet to the upper abdomen. Images are reviewed in the axial, sagittal, and coronal planes. IV contrast was administered without complication. A dose lowering technique was utilized adhering to the principles of ALARA. The examination is moderately degraded by motion artifact. CT DOSE: 259.18 mGy.cm FINDINGS: Thyroid: Imaged portions of the thyroid gland are normal in size and attenuation. Thoracic aorta: There is atherosclerotic calcification of the thoracic aorta, which is normal in caliber and demonstrates standard 3-vessel arch anatomy. No dissection is seen. Advanced atherosclerotic calcification is seen in the distal right common carotid artery. Pulmonary vasculature: The main pulmonary arteries are dilated suggesting pulmonary artery hypertension. There are no filling defects identified in the central pulmonary vessels to indicate pulmonary embolus. Note that this examination was not protocoled for evaluation of the pulmonary arteries. Heart: The heart is mildly enlarged and there is trace pericardial effusion. The coronary arteries are densely calcified. Lungs and pleural spaces: Evaluation of the lung parenchyma is modestly degraded by motion artifact. There is advanced emphysema. Small pleural effusions are identified. There are numerous scattered calcified granulomas. Subpleural opacities in the left lung base have modestly cleared from 06/23/2017. Mild diffuse peribronchial thickening is identified. Fluid/secretions are present in the left lower lobe bronchi. Mediastinum: There is no mediastinal lymphadenopathy. Ana: There are calcified right hilar nodes. No hilar adenopathy is seen. Axillae: There is no axillary lymphadenopathy. Upper abdomen: There is a small hiatal hernia. There is evidence of hepatic steatosis. Numerous calcified granulomas are seen in the spleen. There is cortical atrophy of the partially imaged kidneys. Skeletal structures: The skeletal structures are osteopenic. Degenerative change is seen in the shoulders. No lytic or blastic bony lesions are seen. IMPRESSION: 1. Cardiomegaly and advanced emphysema. 2. There are small bilateral pleural effusions, new from 06/23/2017. 3. Subpleural opacities are again seen at the left lung base and appear modestly cleared from 06/23/2017. 6 month follow-up chest CT is recommended to document complete resolution. 4. Fluid/debris is present within the left lower lobe airways. Correlate for evidence of aspiration. 5. Mild diffuse peribronchial thickening suggests reactive airway disease. 6. Additional findings as above. Electronically signed by: Drew Brooks M.D. 10/08/2017 12:03 PM Dictated Date/Time: 10/08/2017 11:56 AM
[2017-10-08] MEDS: CYCLOBENZAPRINE HCL 5 MG TAB PO PRN (12:12)
--- NOTE | 2017-10-08 12:49 | PULMONARY PROGRESS NOTE ---
DATE: 10/08/2017 SUBJECTIVE: The patient does not feel as well today. Feels more congested, dyspneic, and still having right-sided rib or chest wall pain. Rib x-rays yesterday showed no evidence for rib fracture on the right side, but there was evidence for increasing pleural parenchymal process at the left base. PHYSICAL EXAMINATION: CURRENT VITAL SIGNS: Temperature 36.6, pulse 90 and regular, respiratory rate 20, blood pressure 134/66, and O2 saturation 99% on 2 L. SKIN: Warm and dry. HEENT: Atraumatic and normocephalic. PERRLA, EOMI. Conjunctivae pale. Sclerae are nonicteric. Fundi: Grade 1 changes. NECK: Neck veins are not distended at 45 degrees. No evidence of adenopathy in the supraclavicular or infraclavicular areas. LUNGS: Distant P&A with some fine rales. CARDIAC: Regular rhythm. I do not appreciate any gallop. ABDOMEN: Soft and scaphoid. No evidence for hepatosplenomegaly. EXTREMITIES: No significant pedal edema, clubbing, or cyanosis. Negative Homans sign. NEUROLOGIC: Intact. No lateralizing signs. OVERALL ASSESSMENT: A 76-year-old with severe oxygen and steroid dependent chronic obstructive pulmonary disease with probable localized bronchiectasis involving the left base and pleuro- parenchymal process with increasing pleural process noted. Would repeat the CT scan and compare it to the PET CT scan of July 06, and this may help dictate further workup. We are somewhat limited given that this patient has virtually no ventilatory or respiratory reserve, and therefore, it is questionable how well he would tolerate bronchoscopic intervention. TOVAD
--- NOTE | 2017-10-08 16:44 | Progress Note ---
Medicine Progress Note Date & Time of Visit: October 08, 2017 at 16:41. Subjective Seen resting in bed, sitting up having lunch Allowed me to examine him, comfortable In good spirits states He feels about the same as last yesterday Shortness of breath improving Has occasional sputum Denies other symptoms Objective Last 8 Hrs Date Time Temp Pulse Resp B/P (MAP) Pulse Ox O2 Delivery O2 Flow Rate FiO2 10/08/17 16:00 Nasal Cannula 2.0 10/08/17 15:32 36.7 75 20 126/74 (91) 98 Nasal Cannula 2.0 10/08/17 14:06 94 18 94 Nasal Cannula 2.0 10/08/17 12:00 Nasal Cannula 2.0 10/08/17 12:00 36.6 112 20 146/91 (109) 97 Room Air 10/08/17 09:30 Nasal Cannula 2.0 Physical Exam: General-oriented 3, not in distress, but does have some mild accessory muscle use and some effort with speaking Eyes- anicteric Neck- no JVD Lungs-occasional rales bilateral bases, no wheezing, good air entry Heart- regular rhythm; no murmur, normal rate Abdomen- normal bowel sounds, soft, nontender, nondistended Extremities- no pretibial edema, no calf tenderness; Neuro- alert, oriented x 3; no gross focal motor or sensory deficits Skin- warm & dry Laboratory Results: Last 24 Hours Test 10/08/17 05:19 Creatinine 0.84 mg/dl Est Creatinine Clear Calc Drug Dose 67.0 ml/min Estimated GFR () 100.0 Estimated GFR (Non- 86.3 Assessment & Plan COPD EXACERBATION CHRONIC RESPIRATORY FAILURE -chronically on 2L of oxygen and prednisone 10mg -CXR shows LLL infiltrate that was present on prior xray -started levaquin in ER; changed to cefepime upon admission, patient reports he just completed an 8 day course of PO levaquin about a month ago -Pulmonary consulted, patient well known to their service and concern over the persistent LLL infiltrate Plan was to perform a bronchoscopy however patient's oxygenation and respiratory status is still tenuous Sputum culture revealing Pseudomonas Changed cefepime to ceftazidime Avoiding imipenem as this may increase risk for seizures Changed Solu-Medrol to prednisone Continue nebs Repeat CT scan of the chest ordered Continue observation Appreciate Dr. Armstrong's recommendations RIGHT RIB PAIN Started after the the patient's fall X-ray: No signs of fracture Continue Lidoderm patch Added Flexeril twice daily as needed Pain improving TROPONIN ELEVATION: -likely demand ischemia related to tachycardia -serial troponins are down trending -EKG does not show any ST or T wave abnormalities RECENT FALL - secondary to alcohol intoxication - pain along right posterior side - lidoderm patch and PRN norco ordered Improving CHRONIC ALCOHOL DEPENDANCE: -patient is a daily drinker, denies any prior hx of withdrawal - Alc Withdrawal Protocol PRN Ativan -No signs of alcohol withdrawal CHRONIC ASPIRATION: -speech eval last admission and barium swallow suggest some silent aspiration but video swallow study suggested no aspiration -continue current diet -has outpatient follow up arranged CHRONIC SINUSITIS: -currently denies any symptoms -consider nasal steroid spray if ongoing symptoms DVT prophylaxis Lovenox Disposition Lives at home PT OT Anticipate discharge to home when cleared by pulmonary service Current Inpatient Medications: Current Inpatient Medications Medications (Trade) Dose Ordered Sig/Rigoberto Route Start Time Stop Time Status Last Admin Dose Admin Acetaminophen (Tylenol Tab) 650 mg Q4H PRN PO 10/03/17 12:45 11/02/17 12:44 10/03/17 20:41 650 MG Ondansetron HCl (Zofran Inj) 4 mg Q6H PRN IV 10/03/17 12:45 11/02/17 12:44 10/06/17 00:16 4 MG Polyethylene (Miralax Powder Packet) 17 gm DAILY PRN PO 10/03/17 12:45 11/02/17 12:44 Salmeterol Xinafoate/ Fluticasone (Advair Diskus 250/50 Inh) 1 puff BID INH 10/03/17 21:00 11/02/17 20:59 10/08/17 09:42 1 PUFF Roflumilast (Daliresp Tab) 500 mcg DAILY PO 10/04/17 09:00 11/03/17 08:59 10/08/17 09:44 500 MCG Thiamine HCl (Vitamin B-1 Tab) 100 mg DAILY PO 10/04/17 09:00 11/03/17 08:59 10/08/17 09:43 100 MG Ipratropium [place] (Atrovent 0.02% 0.5MG/2.5ML Neb) 0.5 mg Q6R INH 10/04/17 09:30 11/03/17 09:29 10/08/17 14:05 0.5 MG Levalbuterol (Xopenex 1.25MG/ 0.5ML Neb) 1.25 mg Q6R INH 10/04/17 09:30 11/03/17 09:29 10/08/17 14:05 1.25 MG Lidocaine (Lidoderm Patch 5%) 1 patch QAM TD 10/04/17 09:30 11/03/17 09:29 10/08/17 09:43 1 PATCH Miscellaneous (Remove Lidoderm Patch) 1 ea DAILY@21 N/A 10/04/17 21:00 11/03/17 20:59 10/07/17 20:44 1 EA Acetaminophen/ Hydrocodone Bitart ([place] 5/325 Tab) 1 tab Q6 PRN PO 10/04/17 09:30 10/18/17 09:29 10/08/17 09:50 1 TAB Lorazepam (Ativan Inj) 0.5 mg Q6H PRN IV 10/05/17 14:00 11/04/17 13:59 Lorazepam (Ativan Inj) 1 mg ONE PRN IV 10/05/17 14:00 Multivitamins 10 ml/Thiamine HCl 100 mg/Folic Acid 1 mg/Sodium Chloride 1,011.2 ml @ 75 mls/hr DAILY IV 10/06/17 09:00 11/05/17 08:59 10/08/17 09:54 75 MLS/HR Miscellaneous Information (Pharmacy Consult) 1 ea UD PRN N/A 10/06/17 10:31 11/05/17 10:30 Lorazepam (Ativan Tab) 0.5 mg Q4H PRN PO 10/06/17 09:45 11/05/17 09:44 10/07/17 16:26 0.5 MG Ceftazidime 2000 mg/Dextrose 60 ml @ 120 mls/hr Q8H IV 10/06/17 12:00 10/17/17 11:59 10/08/17 12:07 120 MLS/HR Enoxaparin Sodium (Lovenox Inj) 40 mg QAM SQ 10/07/17 09:00 11/06/17 08:59 10/08/17 09:44 40 MG Cyclobenzaprine HCl (Flexeril Tab) 5 mg BID PRN PO 10/08/17 09:00 11/07/17 08:59 10/08/17 12:12 5 MG Prednisone (PredniSONE TAB) 60 mg DAILY PO 10/08/17 09:00 11/07/17 08:59 10/08/17 09:42 60 MG Ioversol (Optiray 320) 100 ml UD PRN IV 10/08/17 11:15 10/12/17 11:14
[2017-10-09] VITALS (9 sets, daily range): BP systolic 110–160; BP diastolic 64–91; PULSE 72–97; TEMP 36.3–36.8; O2SAT 93–99
[2017-10-09] MEDS: IPRATROPIUM BROMIDE NEB SOLN 0.02% 2.5 ML VIAL INH SCH ×4 (01:35→19:26)
[2017-10-09] MEDS: LEVALBUTEROL 1.25MG/0.5ML NEB INH SCH ×4 (01:35→19:26)
[2017-10-09] MEDS: DEXTROSE 5% IV SCH ×2 (04:11→13:03)
[2017-10-09] MEDS: CEFTAZIDIME IV SCH ×2 (04:11→13:03)
[2017-10-09 05:33] LABS: HEMATOCRIT 36.2 % (42-52); HEMOGLOBIN 12.2 g/dL (14.0-18.0); MEAN CORPUSCULAR HEMOGLOBIN 33.7 pg (25-34); MEAN CORPUSCULAR HGB CONC 33.7 g/dl (32-36); MEAN PLATELET VOLUME 9.3 fL (7.4-10.4); PLATELET COUNT 131 K/uL (130-400); RED CELL DISTRIBUTION WIDTH CV 13.6 % (11.5-14.5); RED CELL DISTRIBUTION WIDTH SD 49.4 fL (36.4-46.3); WHITE BLOOD COUNT 5.82 K/uL (4.8-10.8)
[2017-10-09 06:02] LABS: CREATININE 0.95 mg/dl (0.60-1.40)
[2017-10-09] MEDS: CYCLOBENZAPRINE HCL 5 MG TAB PO PRN (07:45)
[2017-10-09] MEDS: THIAMINE HCL 100 MG TAB PO SCH (07:45)
[2017-10-09] MEDS: ENOXAPARIN 40 MG/0.4 ML SYR SQ SCH (07:45)
[2017-10-09] MEDS: FLUTICASONE/SALMETEROL 250/50 (ADVAIR) 14 PUFF/1 INHALER INH SCH ×2 (07:46→20:08)
[2017-10-09] MEDS: LIDODERM (LIDOCAINE) PATCH 5% TD SCH (07:46)
[2017-10-09] MEDS: HYDROCODONE/ACETAMIN 5/325MG TAB PO PRN ×2 (07:56→20:09)
[2017-10-09] MEDS: MULTI-VITAMIN INFUSION INJ 10 ML, THIAMINE HCL INJ 100 MG, FoLIC ACID INJ 1 MG in SODIU... IV SCH (10:23)
[2017-10-09] MEDS: ROFLUMILAST 500 MCG TAB PO SCH (10:23)
--- NOTE | 2017-10-09 14:22 | Pulmonology Progress Note ---
Pulmonary Progress Note Date of Service October 09, 2017. Attending Dr. Gill Subjective Patient able sit up in bed and have a full conversation showing no signs of respiratory insufficiency on 2 L nasal cannula, he states that he has increased shortness of breath from his baseline in notes he is only about 50% from his normal. Objective Patient is sitting up bed having full conversation not using accessory muscles are nor is he tachypneic on 2 L nasal cannula showing no signs of respiratory insufficiency: PmHx: Severe COPD/FEV1 40%, reversible airway disease, alcoholism, left lower lobe infiltrate, Smoker former (4ppd, quite one year prior for greater than 50 pack years quit 14 months ago) Vital signs: Stable on 2 L nasal cannula Cardiac: S1-S2 regular rate rhythm distant heart sounds Respiratory: Decreased breath sounds bilaterally mild rhonchi at left lower lobe Abdomen: Positive bowel sounds soft nontender no hepatosplenomegaly Extremities: No clubbing cyanosis or edema CT chest with IV contrast 10/08/2017 Small bilateral pleural effusions new as compared to 06/23/2017 Skeletal structure: No signs of fracture or lytic lesions Subpleural opacifications left lung base no acute changes from 06/23/2017 Possible fluid verses bronchiectatic changes within the left lower lobe airways Pulmonary medications: 1. Cyclobenzaprine 5 mg b.i.d. 2. Prednisone 60 mg daily 3. Lovenox 40 mg daily 4. Ceftazidime 2000 mg q.8 hours IV 5. Xopenex/Atrovent nebulizer q.6 hours 6. Advair disc 250/500 b.i.d. Troponin I: 0.234--0.130--0.090-0.063--0.058 EKG: Normal sinus rhythm rate 90 Barium swallow 05/24/2017: Small amount of silent aspiration identified Radiology history (personally reviewed) CXR 03/07/2017: Left lower lobe infiltrate CXR 04/23/2017: Left lower lobe infiltrate CTA 04/23/2017: 3.8 cm left lower lobe infiltrate CXR 05/17/2017: Left lower lobe infiltrate CXR 05/20/2017: Left lower lobe infiltrate CTA 05/20/2017: 3 cm left lower lobe infiltrate CXR 05/21/2017: Left lower lobe infiltrate CXR 05/24/2017: Left lower lobe infiltrate CXR 06/02/2017: Left lower lobe infiltrate CXR 06/13/2017: Left lower lobe infiltrate CTA 06/23/2017: 2.9 cm left lower lobe infiltrate CT/PET 07/07/2017: 33 mm left lower lobe infiltrate no PET avidity CT with contrast 10/08/2017: Stability left lower lobe infiltrate verses mass Spirometry 10/16/2016: spirometry: Severe obstructive ventilatory disease FEV1 40%: bronchodilator: Significant response based off FEV1 Assessment & Plan 76-year-old gentleman with acute on chronic respiratory insufficiency: 1. Respiratory insufficiency: The etiology for this patient's acute on chronic respiratory insufficiency I do not believe is fully elucidated at this time. There are no signs of acute infection and on arrival the patient's saturations where his baseline as well as respiratory rate. I have no ABG VBG to suggest the patient was having any signs of hypercapnia. It is possible his respiratory insufficiency is secondary to his baseline increased work of breathing added on to the notable chest discomfort/muscle spasm he has been appreciating. 2. Pneumonia: This time I will discontinue the patient's antibiotics as his procalcitonin was within normal limits and his radiograph show no signs of infiltrative process other than his baseline left lower lobe which has been chronically monitored and stable since 04/23/2017. 3. Cardiac: Patient did have elevated troponins with associated shortness of breath. This will require workup with stress echocardiogram in the future. 4. COPD: Patient does have severe COPD currently on prednisone 60 mg daily will decrease to 40 mg daily and monitor. Data Medications: Current Inpatient Medications Medications (Trade) Dose Ordered Sig/Rigoberto Route Start Time Stop Time Status Last Admin Dose Admin Acetaminophen (Tylenol Tab) 650 mg Q4H PRN PO 10/03/17 12:45 11/02/17 12:44 10/03/17 20:41 650 MG Ondansetron HCl (Zofran Inj) 4 mg Q6H PRN IV 10/03/17 12:45 11/02/17 12:44 10/06/17 00:16 4 MG Polyethylene (Miralax Powder Packet) 17 gm DAILY PRN PO 10/03/17 12:45 11/02/17 12:44 Salmeterol Xinafoate/ Fluticasone (Advair Diskus 250/50 Inh) 1 puff BID INH 10/03/17 21:00 5/29/18 20:59 10/09/17 07:46 1 PUFF Roflumilast (Daliresp Tab) 500 mcg DAILY PO 10/04/17 09:00 11/03/17 08:59 10/09/17 10:23 500 MCG Thiamine HCl (Vitamin B-1 Tab) 100 mg DAILY PO 10/04/17 09:00 11/03/17 08:59 10/09/17 07:45 100 MG Ipratropium [place] (Atrovent 0.02% 0.5MG/2.5ML Neb) 0.5 mg Q6R INH 10/04/17 09:30 11/03/17 09:29 10/09/17 07:12 0.5 MG Levalbuterol (Xopenex 1.25MG/ 0.5ML Neb) 1.25 mg Q6R INH 10/04/17 09:30 11/03/17 09:29 10/09/17 07:11 1.25 MG Lidocaine (Lidoderm Patch 5%) 1 patch QAM TD 10/04/17 09:30 11/03/17 09:29 10/09/17 07:46 1 PATCH Miscellaneous (Remove Lidoderm Patch) 1 ea DAILY@21 N/A 10/04/17 21:00 11/03/17 20:59 10/08/17 19:14 1 EA Acetaminophen/ Hydrocodone Bitart ([place] 5/325 Tab) 1 tab Q6 PRN PO 10/04/17 09:30 10/18/17 09:29 10/09/17 07:56 1 TAB Lorazepam (Ativan Inj) 0.5 mg Q6H PRN IV 10/05/17 14:00 11/04/17 13:59 Lorazepam (Ativan Inj) 1 mg ONE PRN IV 10/05/17 14:00 Multivitamins 10 ml/Thiamine HCl 100 mg/Folic Acid 1 mg/Sodium Chloride 1,011.2 ml @ 75 mls/hr DAILY IV 10/06/17 09:00 11/05/17 08:59 10/09/17 10:23 75 MLS/HR Miscellaneous Information (Pharmacy Consult) 1 ea UD PRN N/A 10/06/17 10:31 11/05/17 10:30 Lorazepam (Ativan Tab) 0.5 mg Q4H PRN PO 10/06/17 09:45 11/05/17 09:44 10/07/17 16:26 0.5 MG Ceftazidime 2000 mg/Dextrose 60 ml @ 120 mls/hr Q8H IV 10/06/17 12:00 10/17/17 11:59 10/09/17 13:03 120 MLS/HR Enoxaparin Sodium (Lovenox Inj) 40 mg QAM SQ 10/07/17 09:00 11/06/17 08:59 10/09/17 07:45 40 MG Cyclobenzaprine HCl (Flexeril Tab) 5 mg BID PRN PO 10/08/17 09:00 11/07/17 08:59 10/09/17 07:45 5 MG Prednisone (PredniSONE TAB) 60 mg DAILY PO 10/08/17 09:00 11/07/17 08:59 10/09/17 07:45 60 MG Ioversol (Optiray 320) 100 ml UD PRN IV 10/08/17 11:15 10/12/17 11:14 Vital Signs: Date Time Temp Pulse Resp B/P (MAP) Pulse Ox O2 Delivery O2 Flow Rate FiO2 10/09/17 12:00 36.8 97 22 138/69 (92) 99 Nasal Cannula 2.0 10/09/17 07:12 87 18 93 Nasal Cannula 2.0 10/09/17 06:30 36.5 72 18 155/82 (106) 97 Nasal Cannula 2.0 10/09/17 04:00 Nasal Cannula 2.0 10/09/17 03:47 36.3 72 20 160/91 (114) 99 Nasal Cannula 2.0 10/09/17 01:35 85 18 98 Nasal Cannula 2.0 10/08/17 23:59 Nasal Cannula 2.0 10/08/17 23:49 36.5 68 22 144/77 (99) 97 Nasal Cannula 2.0 10/08/17 20:00 Nasal Cannula 2.0 10/08/17 19:16 93 18 95 Nasal Cannula 2.0 10/08/17 19:16 36.4 85 22 135/73 (93) 95 Nasal Cannula 2.0 10/08/17 16:00 Nasal Cannula 2.0 10/08/17 15:32 36.7 75 20 126/74 (91) 98 Nasal Cannula 2.0 Laboratory Results: Last 24 Hours Test 10/09/17 04:57 White Blood Count 5.82 K/uL Red Blood Count 3.62 M/uL Hemoglobin 12.2 g/dL Hematocrit 36.2 % Mean Corpuscular Volume 100.0 fL Mean Corpuscular Hemoglobin 33.7 pg Mean Corpuscular Hemoglobin Concent 33.7 g/dl RDW Standard Deviation 49.4 fL RDW Coefficient of Variation 13.6 % Platelet Count 131 K/uL Mean Platelet Volume 9.3 fL Creatinine 0.95 mg/dl Est Creatinine Clear Calc Drug Dose 59.2 ml/min Estimated GFR () 91.0 Estimated GFR (Non- 78.5
--- NOTE | 2017-10-09 18:28 | Progress Note ---
Medicine Progress Note Date & Time of Visit: October 09, 2017 at 18:26. Subjective seen resting in bed, comfortable in good spirits states breathing is about the same has occasional cough no withdrawal symptoms Objective Last 8 Hrs Date Time Temp Pulse Resp B/P (MAP) Pulse Ox O2 Delivery O2 Flow Rate FiO2 10/09/17 16:31 36.5 76 22 110/64 (79) 99 Nasal Cannula 2.0 10/09/17 14:26 94 20 98 Nasal Cannula 2.0 10/09/17 12:00 Nasal Cannula 2.0 10/09/17 12:00 36.8 97 22 138/69 (92) 99 Nasal Cannula 2.0 Physical Exam: General-oriented 3, not in distress, but does have some mild accessory muscle use and some effort with speaking Eyes- anicteric Neck- no JVD Lungs- mild rales right base, no wheezing Heart- regular rhythm; no murmur, normal rate Abdomen- normal bowel sounds, soft, nontender, nondistended Extremities- no pretibial edema, no calf tenderness; Neuro- alert, oriented x 3; no gross focal motor or sensory deficits Skin- warm & dry Laboratory Results: Last 24 Hours Test 10/09/17 04:57 White Blood Count 5.82 K/uL Red Blood Count 3.62 M/uL Hemoglobin 12.2 g/dL Hematocrit 36.2 % Mean Corpuscular Volume 100.0 fL Mean Corpuscular Hemoglobin 33.7 pg Mean Corpuscular Hemoglobin Concent 33.7 g/dl RDW Standard Deviation 49.4 fL RDW Coefficient of Variation 13.6 % Platelet Count 131 K/uL Mean Platelet Volume 9.3 fL Creatinine 0.95 mg/dl Est Creatinine Clear Calc Drug Dose 59.2 ml/min Estimated GFR () 91.0 Estimated GFR (Non- 78.5 Assessment & Plan COPD EXACERBATION CHRONIC RESPIRATORY FAILURE -chronically on 2L of oxygen and prednisone 10mg -CXR shows LLL infiltrate that was present on prior xray -started levaquin in ER; changed to cefepime upon admission, patient reports he just completed an 8 day course of PO levaquin about a month ago -Pulmonary consulted, patient well known to their service and concern over the persistent LLL infiltrate Plan was to perform a bronchoscopy however patient's oxygenation and respiratory status is still tenuous Sputum culture revealing Pseudomonas Changed cefepime to ceftazidime--> discontinued today per Pulm recommendations Changed Solu-Medrol to prednisone Continue nebs Repeat CT scan of the chest: noted Continue observation Appreciate Dr. Armstrong's recommendations RIGHT RIB PAIN Started after the the patient's fall X-ray: No signs of fracture Continue Lidoderm patch Added Flexeril twice daily as needed Pain improving TROPONIN ELEVATION: -likely demand ischemia related to tachycardia -serial troponins are down trending -EKG does not show any ST or T wave abnormalities RECENT FALL - secondary to alcohol intoxication - pain along right posterior side - lidoderm patch and PRN norco ordered Improving CHRONIC ALCOHOL DEPENDANCE: -patient is a daily drinker, denies any prior hx of withdrawal - Alc Withdrawal Protocol PRN Ativan -No signs of alcohol withdrawal CHRONIC ASPIRATION: -speech eval last admission and barium swallow suggest some silent aspiration but video swallow study suggested no aspiration -continue current diet -has outpatient follow up arranged CHRONIC SINUSITIS: -currently denies any symptoms -consider nasal steroid spray if ongoing symptoms DVT prophylaxis Lovenox Disposition Lives at home PT OT Anticipate discharge to home when cleared by pulmonary service Current Inpatient Medications: Current Inpatient Medications Medications (Trade) Dose Ordered Sig/Rigoberto Route Start Time Stop Time Status Last Admin Dose Admin Acetaminophen (Tylenol Tab) 650 mg Q4H PRN PO 10/03/17 12:45 11/02/17 12:44 10/03/17 20:41 650 MG Ondansetron HCl (Zofran Inj) 4 mg Q6H PRN IV 10/03/17 12:45 11/02/17 12:44 10/06/17 00:16 4 MG Polyethylene (Miralax Powder Packet) 17 gm DAILY PRN PO 10/03/17 12:45 11/02/17 12:44 Salmeterol Xinafoate/ Fluticasone (Advair Diskus 250/50 Inh) 1 puff BID INH 10/03/17 21:00 11/02/17 20:59 10/09/17 07:46 1 PUFF Roflumilast (Daliresp Tab) 500 mcg DAILY PO 10/04/17 09:00 11/03/17 08:59 10/09/17 10:23 500 MCG Thiamine HCl (Vitamin B-1 Tab) 100 mg DAILY PO 10/04/17 09:00 5/30/18 08:59 10/09/17 07:45 100 MG Ipratropium [place] (Atrovent 0.02% 0.5MG/2.5ML Neb) 0.5 mg Q6R INH 10/04/17 09:30 11/03/17 09:29 10/09/17 14:25 0.5 MG Levalbuterol (Xopenex 1.25MG/ 0.5ML Neb) 1.25 mg Q6R INH 10/04/17 09:30 11/03/17 09:29 10/09/17 14:25 1.25 MG Lidocaine (Lidoderm Patch 5%) 1 patch QAM TD 10/04/17 09:30 11/03/17 09:29 10/09/17 07:46 1 PATCH Miscellaneous (Remove Lidoderm Patch) 1 ea DAILY@21 N/A 10/04/17 21:00 11/03/17 20:59 10/08/17 19:14 1 EA Acetaminophen/ Hydrocodone Bitart ([place] 5/325 Tab) 1 tab Q6 PRN PO 10/04/17 09:30 10/18/17 09:29 10/09/17 07:56 1 TAB Lorazepam (Ativan Inj) 0.5 mg Q6H PRN IV 10/05/17 14:00 11/04/17 13:59 Lorazepam (Ativan Inj) 1 mg ONE PRN IV 10/05/17 14:00 Multivitamins 10 ml/Thiamine HCl 100 mg/Folic Acid 1 mg/Sodium Chloride 1,011.2 ml @ 75 mls/hr DAILY IV 10/06/17 09:00 11/05/17 08:59 10/09/17 10:23 75 MLS/HR Lorazepam (Ativan Tab) 0.5 mg Q4H PRN PO 10/06/17 09:45 11/05/17 09:44 10/07/17 16:26 0.5 MG Enoxaparin Sodium (Lovenox Inj) 40 mg QAM SQ 10/07/17 09:00 11/06/17 08:59 10/09/17 07:45 40 MG Cyclobenzaprine HCl (Flexeril Tab) 5 mg BID PRN PO 10/08/17 09:00 11/07/17 08:59 10/09/17 07:45 5 MG Ioversol (Optiray 320) 100 ml UD PRN IV 10/08/17 11:15 10/12/17 11:14 Prednisone (PredniSONE TAB) 40 mg DAILY PO 10/10/17 09:00 11/07/17 08:59
[2017-10-10] VITALS (11 sets, daily range): BP systolic 115–159; BP diastolic 63–94; PULSE 71–94; TEMP 36.4–36.7; O2SAT 96–98
[2017-10-10] MEDS: LEVALBUTEROL 1.25MG/0.5ML NEB INH SCH ×4 (01:46→19:10)
[2017-10-10] MEDS: IPRATROPIUM BROMIDE NEB SOLN 0.02% 2.5 ML VIAL INH SCH ×4 (01:46→19:10)
[2017-10-10] MEDS: MULTI-VITAMIN INFUSION INJ 10 ML, THIAMINE HCL INJ 100 MG, FoLIC ACID INJ 1 MG in SODIU... IV SCH (09:21)
[2017-10-10] MEDS: LIDODERM (LIDOCAINE) PATCH 5% TD SCH (09:22)
[2017-10-10] MEDS: ROFLUMILAST 500 MCG TAB PO SCH (09:22)
[2017-10-10] MEDS: HYDROCODONE/ACETAMIN 5/325MG TAB PO PRN (09:22)
[2017-10-10] MEDS: ENOXAPARIN 40 MG/0.4 ML SYR SQ SCH (09:23)
[2017-10-10] MEDS: THIAMINE HCL 100 MG TAB PO SCH (09:23)
[2017-10-10] MEDS: FLUTICASONE/SALMETEROL 250/50 (ADVAIR) 14 PUFF/1 INHALER INH SCH ×2 (09:23→21:16)
[2017-10-10] MEDS: CYCLOBENZAPRINE HCL 5 MG TAB PO PRN (10:10)
--- NOTE | 2017-10-10 10:32 | DIAGNOSTIC IMAGING REPORT ---
KUB HISTORY: Acute abdominal pain with concern for bowel obstruction r/o obstruction COMPARISON: PET CT 07/07/2017 FINDINGS: The bowel gas pattern is non-obstructive. There is no organomegaly. Indeterminate 8 mm density projects over the abdominal right upper quadrant at the level of L2 without correlate seen on comparison PET CT 07/07/2017. No pneumoperitoneum or pneumatosis. No fracture. Multilevel degenerative changes about the spine, hips and pelvis. Atelectasis/scarring of the left lung base. IMPRESSION: 1. No evidence of small bowel obstruction or pneumatosis. 2. 8 mm round density projecting over the abdominal right upper quadrant is indeterminate and may reflect a gallstone, likely too cephalad to reflect a urolith. Electronically signed by: Bry Forrest M.D. 10/10/2017 10:31 AM Dictated Date/Time: 10/10/2017 10:28 AM
--- NOTE | 2017-10-10 17:14 | Progress Note ---
Medicine Progress Note Date & Time of Visit: October 10, 2017 at 17:09. Subjective Seen resting in bed sitting up, just returned from the bathroom, patient is dyspneic but improving Otherwise feels about the same as yesterday Some dry cough, no chest pain, no chest pain Pain continues to improve Patient was reporting vague abdominal discomfort this morning KUB: No obstruction Denies other symptoms Objective Last 8 Hrs Date Time Temp Pulse Resp B/P (MAP) Pulse Ox O2 Delivery O2 Flow Rate FiO2 10/10/17 16:45 36.7 94 22 119/73 (88) 97 Nasal Cannula 2.0 10/10/17 14:40 92 96 10/10/17 14:02 85 20 97 Nasal Cannula 2.0 10/10/17 12:05 Nasal Cannula 2.0 10/10/17 11:15 36.6 86 20 115/63 (80) 98 Nasal Cannula 2.0 Physical Exam: General-oriented 3, not in distress, but does have some mild accessory muscle use and some effort with speaking Eyes- anicteric Neck- no JVD Lungs-mild rales at the bases but no wheezing, good air entry Heart- regular rhythm; no murmur, normal rate Abdomen- normal bowel sounds, soft, nontender, nondistended, no Marquis sign Extremities- no pretibial edema, no calf tenderness; Neuro- alert, oriented x 3; no gross focal motor or sensory deficits Skin- warm & dry Assessment & Plan COPD EXACERBATION CHRONIC RESPIRATORY FAILURE -chronically on 2L of oxygen and prednisone 10mg -CXR shows LLL infiltrate that was present on prior xray -started levaquin in ER; changed to cefepime upon admission, patient reports he just completed an 8 day course of PO levaquin about a month ago -Pulmonary consulted, patient well known to their service and concern over the persistent LLL infiltrate Plan was to perform a bronchoscopy however patient's oxygenation and respiratory status is still tenuous Sputum culture revealing Pseudomonas Changed cefepime to ceftazidime, received 7 days of antibiotics Changed Solu-Medrol to prednisone, now at 40 mg daily Continue nebs Repeat CT scan of the chest noted Continue observation Awaiting further recommendations per pulmonary service Appreciate Dr. Armstrong's and Dr. Gill's recommendations recommendations RIGHT RIB PAIN Started after the the patient's fall X-ray: No signs of fracture Continue Lidoderm patch Added Flexeril twice daily as needed Pain improving daily TROPONIN ELEVATION: -likely demand ischemia related to tachycardia -serial troponins are down trending -EKG does not show any ST or T wave abnormalities -Stress test for an outpatient RECENT FALL - secondary to alcohol intoxication - pain along right posterior side - lidoderm patch and PRN norco ordered Improving CHRONIC ALCOHOL DEPENDANCE: -patient is a daily drinker, denies any prior hx of withdrawal - Alc Withdrawal Protocol PRN Ativan -No signs of alcohol withdrawal CHRONIC ASPIRATION: -speech eval last admission and barium swallow suggest some silent aspiration but video swallow study suggested no aspiration -continue current diet -has outpatient follow up arranged CHRONIC SINUSITIS: -currently denies any symptoms -consider nasal steroid spray if ongoing symptoms Will order fluticasone DVT prophylaxis Lovenox Disposition Lives at home PT OT Anticipate discharge to home when cleared by pulmonary service Current Inpatient Medications: Current Inpatient Medications Medications (Trade) Dose Ordered Sig/Rigoberto Route Start Time Stop Time Status Last Admin Dose Admin Acetaminophen (Tylenol Tab) 650 mg Q4H PRN PO 10/03/17 12:45 11/02/17 12:44 10/03/17 20:41 650 MG Ondansetron HCl (Zofran Inj) 4 mg Q6H PRN IV 10/03/17 12:45 11/02/17 12:44 10/06/17 00:16 4 MG Polyethylene (Miralax Powder Packet) 17 gm DAILY PRN PO 10/03/17 12:45 11/02/17 12:44 Salmeterol Xinafoate/ Fluticasone (Advair Diskus 250/50 Inh) 1 puff BID INH 10/03/17 21:00 11/02/17 20:59 10/10/17 09:23 1 PUFF Roflumilast (Daliresp Tab) 500 mcg DAILY PO 10/04/17 09:00 11/03/17 08:59 10/10/17 09:22 500 MCG Thiamine HCl (Vitamin B-1 Tab) 100 mg DAILY PO 10/04/17 09:00 11/03/17 08:59 10/10/17 09:23 100 MG Ipratropium [place] (Atrovent 0.02% 0.5MG/2.5ML Neb) 0.5 mg Q6R INH 10/04/17 09:30 11/03/17 09:29 10/10/17 14:01 0.5 MG Levalbuterol (Xopenex 1.25MG/ 0.5ML Neb) 1.25 mg Q6R INH 10/04/17 09:30 11/03/17 09:29 10/10/17 14:01 1.25 MG Lidocaine (Lidoderm Patch 5%) 1 patch QAM TD 10/04/17 09:30 11/03/17 09:29 10/10/17 09:22 1 PATCH Miscellaneous (Remove Lidoderm Patch) 1 ea DAILY@21 N/A 10/04/17 21:00 11/03/17 20:59 10/09/17 20:03 1 EA Acetaminophen/ Hydrocodone Bitart ([place] 5/325 Tab) 1 tab Q6 PRN PO 10/04/17 09:30 10/18/17 09:29 10/10/17 09:22 1 TAB Lorazepam (Ativan Inj) 0.5 mg Q6H PRN IV 10/05/17 14:00 11/04/17 13:59 Lorazepam (Ativan Inj) 1 mg ONE PRN IV 10/05/17 14:00 Multivitamins 10 ml/Thiamine HCl 100 mg/Folic Acid 1 mg/Sodium Chloride 1,011.2 ml @ 75 mls/hr DAILY IV 10/06/17 09:00 11/05/17 08:59 10/10/17 09:21 75 MLS/HR Lorazepam (Ativan Tab) 0.5 mg Q4H PRN PO 10/06/17 09:45 11/05/17 09:44 10/07/17 16:26 0.5 MG Enoxaparin Sodium (Lovenox Inj) 40 mg QAM SQ 10/07/17 09:00 11/06/17 08:59 10/10/17 09:23 40 MG Cyclobenzaprine HCl (Flexeril Tab) 5 mg BID PRN PO 10/08/17 09:00 11/07/17 08:59 10/10/17 10:10 5 MG Ioversol (Optiray 320) 100 ml UD PRN IV 10/08/17 11:15 10/12/17 11:14 Prednisone (PredniSONE TAB) 40 mg DAILY PO 10/10/17 09:00 11/07/17 08:59 10/10/17 09:22 40 MG
--- NOTE | 2017-10-10 17:56 | Pulmonology Progress Note ---
Pulmonary Progress Note Date of Service October 10, 2017. Attending Dr. Gill Subjective Patient is sitting up in chair eating his lunch doing well no signs of respiratory insufficiency notes he is not back to his baseline but notes stability of his overall respiratory status Objective Sitting up in a chair eating lunch in doing well no signs of respiratory insufficiency during our conversation: PmHx: Severe COPD/FEV1 40%, reversible airway disease, alcoholism, left lower lobe infiltrate, Smoker former (4ppd, quite one year prior for greater than 50 pack years quit 14 months ago) Vital signs: Stable on 2 L nasal cannula Cardiac: S1-S2 regular rate rhythm distant heart sounds Respiratory: Decreased breath sounds bilaterally mild rhonchi at left lower lobe Abdomen: Positive bowel sounds soft nontender no hepatosplenomegaly Extremities: No clubbing cyanosis or edema CT chest with IV contrast 10/08/2017 Small bilateral pleural effusions new as compared to 06/23/2017 Skeletal structure: No signs of fracture or lytic lesions Subpleural opacifications left lung base no acute changes from 06/23/2017 Possible fluid verses bronchiectatic changes within the left lower lobe airways Pulmonary medications: 1. Cyclobenzaprine 5 mg b.i.d. 2. Prednisone 40 mg daily 3. Lovenox 40 mg daily 4. Ceftazidime 2000 mg q.8 hours IV 5. Xopenex/Atrovent nebulizer q.6 hours 6. Advair disc 250/500 b.i.d. Troponin I: 0.234--0.130--0.090-0.063--0.058 EKG: Normal sinus rhythm rate 90 Barium swallow 05/24/2017: Small amount of silent aspiration identified Radiology history (personally reviewed) CXR 03/07/2017: Left lower lobe infiltrate CXR 04/23/2017: Left lower lobe infiltrate CTA 04/23/2017: 3.8 cm left lower lobe infiltrate CXR 05/17/2017: Left lower lobe infiltrate CXR 05/20/2017: Left lower lobe infiltrate CTA 05/20/2017: 3 cm left lower lobe infiltrate CXR 05/21/2017: Left lower lobe infiltrate CXR 05/24/2017: Left lower lobe infiltrate CXR 06/02/2017: Left lower lobe infiltrate CXR 06/13/2017: Left lower lobe infiltrate CTA 06/23/2017: 2.9 cm left lower lobe infiltrate CT/PET 07/07/2017: 33 mm left lower lobe infiltrate no PET avidity CT with contrast 10/08/2017: Stability left lower lobe infiltrate verses mass Spirometry 10/16/2016: spirometry: Severe obstructive ventilatory disease FEV1 40%: bronchodilator: Significant response based off FEV1 Assessment & Plan 76-year-old gentleman with acute on chronic respiratory insufficiency: 1. Respiratory insufficiency: The etiology for this patient's acute on chronic respiratory insufficiency I do not believe is fully elucidated at this time. There are no signs of acute infection and on arrival the patient's saturations where his baseline as well as respiratory rate. I have no ABG VBG to suggest the patient was having any signs of hypercapnia. It is possible his respiratory insufficiency is secondary to his baseline increased work of breathing added on to the notable chest discomfort/muscle spasm he has been appreciating. At this time he is responding well to therapy and we are slowly titrating down on prednisone. 2. Pneumonia: Patient's antibiotics were stopped 10/09/2017 and notes no clinical deterioration. Once again there has been stability in this left lower lobe process since 04/23/2017. 3. Cardiac: Patient did have elevated troponins with associated shortness of breath. This will require workup with stress echocardiogram in the future. 4. COPD: Currently on 40 mg daily of prednisone and off antibiotics responding well.. Data Medications: Current Inpatient Medications Medications (Trade) Dose Ordered Sig/Rigoberto Route Start Time Stop Time Status Last Admin Dose Admin Acetaminophen (Tylenol Tab) 650 mg Q4H PRN PO 10/03/17 12:45 11/02/17 12:44 10/03/17 20:41 650 MG Ondansetron HCl (Zofran Inj) 4 mg Q6H PRN IV 10/03/17 12:45 11/02/17 12:44 10/06/17 00:16 4 MG Polyethylene (Miralax Powder Packet) 17 gm DAILY PRN PO 10/03/17 12:45 11/02/17 12:44 Salmeterol Xinafoate/ Fluticasone (Advair Diskus 250/50 Inh) 1 puff BID INH 10/03/17 21:00 11/02/17 20:59 10/10/17 09:23 1 PUFF Roflumilast (Daliresp Tab) 500 mcg DAILY PO 10/04/17 09:00 11/03/17 08:59 10/10/17 09:22 500 MCG Thiamine HCl (Vitamin B-1 Tab) 100 mg DAILY PO 10/04/17 09:00 11/03/17 08:59 10/10/17 09:23 100 MG Ipratropium [place] (Atrovent 0.02% 0.5MG/2.5ML Neb) 0.5 mg Q6R INH 10/04/17 09:30 11/03/17 09:29 10/10/17 14:01 0.5 MG Levalbuterol (Xopenex 1.25MG/ 0.5ML Neb) 1.25 mg Q6R INH 10/04/17 09:30 11/03/17 09:29 10/10/17 14:01 1.25 MG Lidocaine (Lidoderm Patch 5%) 1 patch QAM TD 10/04/17 09:30 11/03/17 09:29 10/10/17 09:22 1 PATCH Miscellaneous (Remove Lidoderm Patch) 1 ea DAILY@21 N/A 10/04/17 21:00 11/03/17 20:59 10/09/17 20:03 1 EA Acetaminophen/ Hydrocodone Bitart ([place] 5/325 Tab) 1 tab Q6 PRN PO 10/04/17 09:30 10/18/17 09:29 10/10/17 09:22 1 TAB Lorazepam (Ativan Inj) 0.5 mg Q6H PRN IV 10/05/17 14:00 11/04/17 13:59 Lorazepam (Ativan Inj) 1 mg ONE PRN IV 10/05/17 14:00 Multivitamins 10 ml/Thiamine HCl 100 mg/Folic Acid 1 mg/Sodium Chloride 1,011.2 ml @ 75 mls/hr DAILY IV 10/06/17 09:00 11/05/17 08:59 10/10/17 09:21 75 MLS/HR Lorazepam (Ativan Tab) 0.5 mg Q4H PRN PO 10/06/17 09:45 11/05/17 09:44 10/07/17 16:26 0.5 MG Enoxaparin Sodium (Lovenox Inj) 40 mg QAM SQ 10/07/17 09:00 11/06/17 08:59 10/10/17 09:23 40 MG Cyclobenzaprine HCl (Flexeril Tab) 5 mg BID PRN PO 10/08/17 09:00 11/07/17 08:59 10/10/17 10:10 5 MG Ioversol (Optiray 320) 100 ml UD PRN IV 10/08/17 11:15 10/12/17 11:14 Prednisone (PredniSONE TAB) 40 mg DAILY PO 10/10/17 09:00 11/07/17 08:59 10/10/17 09:22 40 MG I & O: 24-Hour Column 10/11/17 08:00 Intake Total 685 ml Output Total 100 ml Balance 585 ml Vital Signs: Date Time Temp Pulse Resp B/P (MAP) Pulse Ox O2 Delivery O2 Flow Rate FiO2 10/10/17 16:45 36.7 94 22 119/73 (88) 97 Nasal Cannula 2.0 10/10/17 16:00 Nasal Cannula 2.0 10/10/17 14:40 92 96 10/10/17 14:02 85 20 97 Nasal Cannula 2.0 10/10/17 12:05 Nasal Cannula 2.0 10/10/17 11:15 36.6 86 20 115/63 (80) 98 Nasal Cannula 2.0 10/10/17 09:00 Nasal Cannula 2.0 10/10/17 07:02 89 20 98 Nasal Cannula 2.0 10/10/17 06:58 36.5 74 23 151/74 (99) 98 Nasal Cannula 2.0 10/10/17 04:35 36.5 77 20 159/94 (115) 97 Nasal Cannula 2.0 10/10/17 04:00 Nasal Cannula 2.0 10/10/17 01:46 75 20 98 Nasal Cannula 2.0 10/10/17 00:03 36.4 73 20 138/74 (95) 98 Nasal Cannula 2.0 10/09/17 23:59 Nasal Cannula 2.0 10/09/17 20:00 Nasal Cannula 2.0 10/09/17 19:59 36.6 87 22 130/70 (90) 97 Nasal Cannula 2.0 10/09/17 19:26 76 20 98 Nasal Cannula 2.0
[2017-10-10] MEDS ORDERED: NURSING VERBAL MED ORDER ONE (19:30)
[2017-10-11] VITALS (11 sets, daily range): BP systolic 118–158; BP diastolic 64–94; PULSE 69–101; TEMP 36.4–36.6; O2SAT 95–99
[2017-10-11] MEDS: HYDROCODONE/ACETAMIN 5/325MG TAB PO PRN ×3 (00:21→19:51)
[2017-10-11] MEDS: IPRATROPIUM BROMIDE NEB SOLN 0.02% 2.5 ML VIAL INH SCH ×4 (02:23→19:17)
[2017-10-11] MEDS: LEVALBUTEROL 1.25MG/0.5ML NEB INH SCH ×4 (02:23→19:17)
--- NOTE | 2017-10-11 08:55 | DIAGNOSTIC IMAGING REPORT ---
ABDOMINAL ULTRASOUND, RIGHT UPPER QUADRANT HISTORY: Generalized abdominal pain. Abnormal KUB. r/o cholelithiasis. COMPARISON: KUB 10/10/2017. FINDINGS: Pancreas: The pancreatic head and tail are obscured by overlying bowel gas. The remaining portions of the pancreas are within normal limits. Pancreatic duct is top normal in diameter measuring 3 mm. Liver: Unremarkable. Gallbladder: No gallbladder wall thickening. No gallstones. CBD: 7 mm. This is also top normal for age. Right kidney: No hydronephrosis. IMPRESSION: 1. No gallstones identified. 2. No gallbladder wall thickening. 3. The pancreatic duct is top normal in diameter measuring 3 mm. Electronically signed by: Madan Henderson M.D. 10/11/2017 8:53 AM Dictated Date/Time: 10/11/2017 8:49 AM
[2017-10-11] MEDS: FLUTICASONE/SALMETEROL 250/50 (ADVAIR) 14 PUFF/1 INHALER INH SCH ×2 (09:00→19:46)
[2017-10-11] MEDS: ROFLUMILAST 500 MCG TAB PO SCH (10:10)
[2017-10-11] MEDS: THIAMINE HCL 100 MG TAB PO SCH (10:11)
[2017-10-11] MEDS: LIDODERM (LIDOCAINE) PATCH 5% TD SCH (10:11)
[2017-10-11] MEDS: ENOXAPARIN 40 MG/0.4 ML SYR SQ SCH (10:11)
--- NOTE | 2017-10-11 13:49 | Pulmonology Progress Note ---
Pulmonary Progress Note Date of Service October 11, 2017. Attending Dr. Gill Subjective Patient was sitting up in bed completing full sentences noted that he is not back to his baseline but he is overall respiratory status is slowly improving Objective Sitting up in bed showing no signs of respiratory insufficiency/fatigue at this time PmHx: Severe COPD/FEV1 40%, reversible airway disease, alcoholism, left lower lobe infiltrate, Smoker former (4ppd, quite one year prior for greater than 50 pack years quit 14 months ago) Vital signs: Stable on 2 L nasal cannula Cardiac: S1-S2 regular rate rhythm distant heart sounds Respiratory: Decreased breath sounds bilaterally mild rhonchi at left lower lobe Abdomen: Positive bowel sounds soft nontender no hepatosplenomegaly Extremities: No clubbing cyanosis or edema CT chest with IV contrast 10/08/2017 Small bilateral pleural effusions new as compared to 06/23/2017 Skeletal structure: No signs of fracture or lytic lesions Subpleural opacifications left lung base no acute changes from 06/23/2017 Possible fluid verses bronchiectatic changes within the left lower lobe airways Pulmonary medications: 1. Cyclobenzaprine 5 mg b.i.d. 2. Prednisone 40 mg daily 3. Lovenox 40 mg daily 4. Ceftazidime 2000 mg q.8 hours IV 5. Xopenex/Atrovent nebulizer q.6 hours 6. Advair disc 250/500 b.i.d. Troponin I: 0.234--0.130--0.090-0.063--0.058 EKG: Normal sinus rhythm rate 90 Barium swallow 05/24/2017: Small amount of silent aspiration identified Radiology history (personally reviewed) CXR 03/07/2017: Left lower lobe infiltrate CXR 04/23/2017: Left lower lobe infiltrate CTA 04/23/2017: 3.8 cm left lower lobe infiltrate CXR 05/17/2017: Left lower lobe infiltrate CXR 05/20/2017: Left lower lobe infiltrate CTA 05/20/2017: 3 cm left lower lobe infiltrate CXR 05/21/2017: Left lower lobe infiltrate CXR 05/24/2017: Left lower lobe infiltrate CXR 06/02/2017: Left lower lobe infiltrate CXR 06/13/2017: Left lower lobe infiltrate CTA 06/23/2017: 2.9 cm left lower lobe infiltrate CT/PET 07/07/2017: 33 mm left lower lobe infiltrate no PET avidity CT with contrast 10/08/2017: Stability left lower lobe infiltrate verses mass Spirometry 10/16/2016: spirometry: Severe obstructive ventilatory disease FEV1 40%: bronchodilator: Significant response based off FEV1 Assessment & Plan 76-year-old gentleman with acute on chronic respiratory insufficiency: 1. Respiratory insufficiency: At this time it appears the patient is back to his baseline respiratory status. He should continue on his current medical regimen and have a slow steroid taper/prednisone over the next 2 weeks. 2. Pneumonia: Patient's antibiotics were stopped 10/09/2017 and there is still notable clinical stability. 3. Left lower lobe infiltrate/nodule: Stability in this left lower lobe process since 04/23/2017 can be followed up as an outpatient 4. Cardiac: Patient did have elevated troponins with associated shortness of breath. This will require workup with stress echocardiogram in the future. 4. COPD: Currently on 40 mg daily of prednisone and off antibiotics responding well. Slow taper air over 2 week window as an outpatient. At this time the Pulmonary service will sign off as the patient is only stable and progressing and proper direction. Data Medications: Current Inpatient Medications Medications (Trade) Dose Ordered Sig/Rigoberto Route Start Time Stop Time Status Last Admin Dose Admin Acetaminophen (Tylenol Tab) 650 mg Q4H PRN PO 10/03/17 12:45 11/02/17 12:44 10/03/17 20:41 650 MG Ondansetron HCl (Zofran Inj) 4 mg Q6H PRN IV 10/03/17 12:45 11/02/17 12:44 10/06/17 00:16 4 MG Polyethylene (Miralax Powder Packet) 17 gm DAILY PRN PO 10/03/17 12:45 11/02/17 12:44 Salmeterol Xinafoate/ Fluticasone (Advair Diskus 250/50 Inh) 1 puff BID INH 10/03/17 21:00 11/02/17 20:59 10/10/17 21:16 1 PUFF Roflumilast (Daliresp Tab) 500 mcg DAILY PO 10/04/17 09:00 11/03/17 08:59 10/11/17 10:10 500 MCG Thiamine HCl (Vitamin B-1 Tab) 100 mg DAILY PO 10/04/17 09:00 11/03/17 08:59 10/11/17 10:11 100 MG Ipratropium [place] (Atrovent 0.02% 0.5MG/2.5ML Neb) 0.5 mg Q6R INH 10/04/17 09:30 11/03/17 09:29 10/11/17 06:59 0.5 MG Levalbuterol (Xopenex 1.25MG/ 0.5ML Neb) 1.25 mg Q6R INH 10/04/17 09:30 11/03/17 09:29 10/11/17 06:59 1.25 MG Lidocaine (Lidoderm Patch 5%) 1 patch QAM TD 10/04/17 09:30 11/03/17 09:29 10/11/17 10:11 1 PATCH Miscellaneous (Remove Lidoderm Patch) 1 ea DAILY@21 N/A 10/04/17 21:00 11/03/17 20:59 10/10/17 21:16 1 EA Acetaminophen/ Hydrocodone Bitart ([place] 5/325 Tab) 1 tab Q6 PRN PO 10/04/17 09:30 10/18/17 09:29 10/11/17 10:10 1 TAB Lorazepam (Ativan Inj) 0.5 mg Q6H PRN IV 10/05/17 14:00 11/04/17 13:59 Lorazepam (Ativan Inj) 1 mg ONE PRN IV 10/05/17 14:00 Lorazepam (Ativan Tab) 0.5 mg Q4H PRN PO 10/06/17 09:45 11/05/17 09:44 10/07/17 16:26 0.5 MG Enoxaparin Sodium (Lovenox Inj) 40 mg QAM SQ 10/07/17 09:00 11/06/17 08:59 10/11/17 10:11 40 MG Cyclobenzaprine HCl (Flexeril Tab) 5 mg BID PRN PO 10/08/17 09:00 11/07/17 08:59 10/10/17 10:10 5 MG Ioversol (Optiray 320) 100 ml UD PRN IV 10/08/17 11:15 10/12/17 11:14 Prednisone (PredniSONE TAB) 40 mg DAILY PO 10/10/17 09:00 11/07/17 08:59 10/11/17 10:11 40 MG Vital Signs: Date Time Temp Pulse Resp B/P (MAP) Pulse Ox O2 Delivery O2 Flow Rate FiO2 10/11/17 10:59 36.6 101 22 134/64 (87) 99 Nasal Cannula 2.0 10/11/17 07:30 Nasal Cannula 2.0 10/11/17 06:59 69 20 97 Nasal Cannula 2.0 10/11/17 06:57 36.4 76 22 158/93 (114) 97 Nasal Cannula 2.0 10/11/17 04:00 Nasal Cannula 2.0 10/11/17 03:30 36.6 84 18 151/93 (112) 98 Nasal Cannula 2.0 10/11/17 02:23 75 20 99 Nasal Cannula 2.0 10/11/17 00:11 36.4 85 21 146/94 (111) 98 Nasal Cannula 2.0 10/10/17 23:59 Nasal Cannula 2.0 10/10/17 20:00 Nasal Cannula 2.0 10/10/17 19:54 36.5 82 22 128/82 (97) 98 Nasal Cannula 2.0 10/10/17 19:10 71 20 96 Nasal Cannula 2.0 10/10/17 16:45 36.7 94 22 119/73 (88) 97 Nasal Cannula 2.0 10/10/17 16:00 Nasal Cannula 2.0 10/10/17 14:40 92 96 10/10/17 14:02 85 20 97 Nasal Cannula 2.0
[2017-10-11] MEDS ORDERED: FUROSEMIDE 20 MG TAB PO ONE (16:00)
--- NOTE | 2017-10-11 20:02 | Progress Note ---
Medicine Progress Note Date & Time of Visit: October 11, 2017 at 19:59. Subjective Seen resting in bed, sitting up comfortable States breathing is improved today compared to yesterday Less dyspneic with exertion Feels abdominal wall is full No other symptoms Objective Last 8 Hrs Date Time Temp Pulse Resp B/P (MAP) Pulse Ox O2 Delivery O2 Flow Rate FiO2 10/11/17 19:17 79 18 97 Nasal Cannula 2.0 10/11/17 16:05 Nasal Cannula 2.0 10/11/17 15:55 36.4 73 22 118/71 (87) 98 Nasal Cannula 2.0 10/11/17 13:49 88 20 97 Nasal Cannula 2.0 10/11/17 12:00 Nasal Cannula 2.0 Physical Exam: General-oriented 3, not in distress, but does have some mild accessory muscle use and some effort with speaking Eyes- anicteric Neck- no JVD Lungs-clear breath sounds bilaterally no wheezing, good air entry Heart- regular rhythm; no murmur, normal rate Abdomen- normal bowel sounds, soft, nontender, nondistended, no Marquis sign Extremities- no pretibial edema, no calf tenderness; Neuro- alert, oriented x 3; no gross focal motor or sensory deficits Skin- warm & dry Assessment & Plan COPD EXACERBATION CHRONIC RESPIRATORY FAILURE -chronically on 2L of oxygen and prednisone 10mg -CXR shows LLL infiltrate that was present on prior xray -started levaquin in ER; changed to cefepime upon admission, patient reports he just completed an 8 day course of PO levaquin about a month ago -Pulmonary consulted, patient well known to their service and concern over the persistent LLL infiltrate Sputum culture revealing Pseudomonas Changed cefepime to ceftazidime, received 7 days of antibiotics Changed Solu-Medrol to prednisone, now at 40 mg daily No plans for bronchoscopy Continue nebs Repeat CT scan of the chest noted Continue observation Possible discharge tomorrow RIGHT RIB PAIN Started after the the patient's fall X-ray: No signs of fracture Continue Lidoderm patch Added Flexeril twice daily as needed Pain almost resolved Abdominal wall fullness Be secondary to mild edema from IV fluids and steroids Lasix 20 mg p.o. given TROPONIN ELEVATION: -likely demand ischemia related to tachycardia -serial troponins are down trending -EKG does not show any ST or T wave abnormalities -Stress test for an outpatient RECENT FALL - secondary to alcohol intoxication - pain along right posterior side - lidoderm patch and PRN norco ordered Improving CHRONIC ALCOHOL DEPENDANCE: -patient is a daily drinker, denies any prior hx of withdrawal - Alc Withdrawal Protocol PRN Ativan -No signs of alcohol withdrawal CHRONIC ASPIRATION: -speech eval last admission and barium swallow suggest some silent aspiration but video swallow study suggested no aspiration -continue current diet -has outpatient follow up arranged CHRONIC SINUSITIS: -currently denies any symptoms -consider nasal steroid spray if ongoing symptoms Will order fluticasone DVT prophylaxis Lovenox Disposition Lives at home PT OT Anticipate discharge to home tomorrow Current Inpatient Medications: Current Inpatient Medications Medications (Trade) Dose Ordered Sig/Rigoberto Route Start Time Stop Time Status Last Admin Dose Admin Acetaminophen (Tylenol Tab) 650 mg Q4H PRN PO 10/03/17 12:45 11/02/17 12:44 10/03/17 20:41 650 MG Ondansetron HCl (Zofran Inj) 4 mg Q6H PRN IV 10/03/17 12:45 11/02/17 12:44 10/06/17 00:16 4 MG Polyethylene (Miralax Powder Packet) 17 gm DAILY PRN PO 10/03/17 12:45 11/02/17 12:44 Salmeterol Xinafoate/ Fluticasone (Advair Diskus 250/50 Inh) 1 puff BID INH 10/03/17 21:00 11/02/17 20:59 10/11/17 19:46 1 PUFF Roflumilast (Daliresp Tab) 500 mcg DAILY PO 10/04/17 09:00 11/03/17 08:59 10/11/17 10:10 500 MCG Thiamine HCl (Vitamin B-1 Tab) 100 mg DAILY PO 10/04/17 09:00 11/03/17 08:59 10/11/17 10:11 100 MG Ipratropium [place] (Atrovent 0.02% 0.5MG/2.5ML Neb) 0.5 mg Q6R INH 10/04/17 09:30 11/03/17 09:29 10/11/17 19:17 0.5 MG Levalbuterol (Xopenex 1.25MG/ 0.5ML Neb) 1.25 mg Q6R INH 10/04/17 09:30 11/03/17 09:29 10/11/17 19:17 1.25 MG Lidocaine (Lidoderm Patch 5%) 1 patch QAM TD 10/04/17 09:30 11/03/17 09:29 10/11/17 10:11 1 PATCH Miscellaneous (Remove Lidoderm Patch) 1 ea DAILY@21 N/A 10/04/17 21:00 11/03/17 20:59 10/11/17 19:45 1 EA Acetaminophen/ Hydrocodone Bitart ([place] 5/325 Tab) 1 tab Q6 PRN PO 10/04/17 09:30 10/18/17 09:29 10/11/17 19:51 1 TAB Lorazepam (Ativan Inj) 0.5 mg Q6H PRN IV 10/05/17 14:00 11/04/17 13:59 Lorazepam (Ativan Inj) 1 mg ONE PRN IV 10/05/17 14:00 Lorazepam (Ativan Tab) 0.5 mg Q4H PRN PO 10/06/17 09:45 11/05/17 09:44 10/07/17 16:26 0.5 MG Enoxaparin Sodium (Lovenox Inj) 40 mg QAM SQ 10/07/17 09:00 11/06/17 08:59 10/11/17 10:11 40 MG Cyclobenzaprine HCl (Flexeril Tab) 5 mg BID PRN PO 10/08/17 09:00 11/07/17 08:59 10/10/17 10:10 5 MG Ioversol (Optiray 320) 100 ml UD PRN IV 10/08/17 11:15 10/12/17 11:14 Prednisone (PredniSONE TAB) 40 mg DAILY PO 10/10/17 09:00 11/07/17 08:59 10/11/17 10:11 40 MG
[2017-10-12] MEDS: LEVALBUTEROL 1.25MG/0.5ML NEB INH SCH ×2 (01:59→07:02)
[2017-10-12] MEDS: IPRATROPIUM BROMIDE NEB SOLN 0.02% 2.5 ML VIAL INH SCH ×2 (01:59→07:02)
[2017-10-12 03:51] VITALS: BP 159/76; PULSE 72; TEMP 36.6; O2SAT 98
[2017-10-12 06:50] LABS: HEMATOCRIT 35.2 % (42-52); HEMOGLOBIN 11.9 g/dL (14.0-18.0); MEAN CELL VOLUME 99.2 fL (80-100); MEAN CORPUSCULAR HEMOGLOBIN 33.5 pg (25-34); MEAN CORPUSCULAR HGB CONC 33.8 g/dl (32-36); MEAN PLATELET VOLUME 9.5 fL (7.4-10.4); PLATELET COUNT 141 K/uL (130-400); RED CELL DISTRIBUTION WIDTH CV 13.5 % (11.5-14.5); RED CELL DISTRIBUTION WIDTH SD 49.1 fL (36.4-46.3); WHITE BLOOD COUNT 6.41 K/uL (4.8-10.8)
[2017-10-12 07:02] VITALS: PULSE 88; O2SAT 98
[2017-10-12 07:18] LABS: CREATININE 0.73 mg/dl (0.60-1.40)
[2017-10-12 07:25] VITALS: BP 157/84; PULSE 77; TEMP 36.4; O2SAT 97
[2017-10-12] MEDS: HYDROCODONE/ACETAMIN 5/325MG TAB PO PRN (08:36)
[2017-10-12] MEDS: THIAMINE HCL 100 MG TAB PO SCH (08:37)
[2017-10-12] MEDS: FLUTICASONE/SALMETEROL 250/50 (ADVAIR) 14 PUFF/1 INHALER INH SCH (08:37)
[2017-10-12] MEDS: LIDODERM (LIDOCAINE) PATCH 5% TD SCH (08:37)
[2017-10-12] MEDS: ROFLUMILAST 500 MCG TAB PO SCH (08:37)
[2017-10-12] MEDS: ENOXAPARIN 40 MG/0.4 ML SYR SQ SCH (08:40)
--- NOTE | 2017-10-12 11:08 | Progress Note ---
Medicine Progress Note Date & Time of Visit: October 12, 2017 at 10:57. Subjective sitting up in bed, comfortable states he feels better overall no active dyspnea dyspnea on exertion is better no cough abdominal wall "fullness" is better denies other symptoms states he is ready and would like to be discharged today Objective Last 8 Hrs Date Time Temp Pulse Resp B/P (MAP) Pulse Ox O2 Delivery O2 Flow Rate FiO2 10/12/17 08:00 Nasal Cannula 2.0 10/12/17 07:25 36.4 77 24 157/84 (108) 97 Nasal Cannula 2.0 10/12/17 07:02 88 18 98 Nasal Cannula 2.0 10/12/17 04:00 Nasal Cannula 2.0 10/12/17 03:51 36.6 72 18 159/76 (103) 98 Nasal Cannula 2.0 Physical Exam: General-oriented 3, not in distress,no accessory muscle use or effort in good spirits Eyes- anicteric Neck- no JVD Lungs-clear breath sounds bilaterally no rales no wheezing Heart- regular rhythm; no murmur, normal rate Abdomen- normal bowel sounds, soft, nontender, nondistended Extremities- no pretibial edema, no calf tenderness; Neuro- alert, oriented x 3; no gross focal motor or sensory deficits Skin- warm & dry Laboratory Results: Last 24 Hours Test 10/12/17 05:59 White Blood Count 6.41 K/uL Red Blood Count 3.55 M/uL Hemoglobin 11.9 g/dL Hematocrit 35.2 % Mean Corpuscular Volume 99.2 fL Mean Corpuscular Hemoglobin 33.5 pg Mean Corpuscular Hemoglobin Concent 33.8 g/dl RDW Standard Deviation 49.1 fL RDW Coefficient of Variation 13.5 % Platelet Count 141 K/uL Mean Platelet Volume 9.5 fL Creatinine 0.73 mg/dl Est Creatinine Clear Calc Drug Dose 81.9 ml/min Estimated GFR () 105.9 Estimated GFR (Non- 91.4 Assessment & Plan COPD EXACERBATION CHRONIC RESPIRATORY FAILURE -chronically on 2L of oxygen and prednisone 10mg -CXR shows LLL infiltrate that was present on prior xray -started levaquin in ER; changed to cefepime upon admission, patient reports he just completed an 8 day course of PO levaquin about a month ago -Pulmonary consulted, patient well known to their service and concerned over the persistent LLL infiltrate Sputum culture revealing Pseudomonas Changed cefepime to ceftazidime, received 7 days of antibiotics Changed Solu-Medrol to prednisone, now at 40 mg daily given Nebs evaluated by Pulmonary service- Dr. Armstrong and Dr. Gill- Bronchoscopy was initially contemplated, no plans for Bronchoscopy at this time as Left Lower Lobe Infiltrate/Nodule felt to be stable since 04/2017 patient gradually improved back to baseline discharge plan: continue Prednisone taper x 2 weeks Nebs TID and Q4h PRN continue Advair follow up with [facility] c/o Dr. Armstrong/Dr. Gill in 1-2 weeks RIGHT RIB PAIN Started after the the patient's fall Rib X-ray: No signs of fracture given Lidoderm patch Flexeril twice daily as needed Pain resolved monitor Abdominal wall fullness likely secondary to mild edema from IV fluids and steroids Lasix 20 mg p.o. given improved monitor TROPONIN ELEVATION: -likely demand ischemia related to tachycardia -serial troponins down trended -EKG does not show any ST or T wave abnormalities -Stress test as outpatient RECENT FALL - secondary to alcohol intoxication - pain along right posterior side - lidoderm patch and PRN norco ordered CHRONIC ALCOHOL DEPENDENCE: -patient is a daily drinker, denies any prior hx of withdrawal - Alc Withdrawal Protocol placed PRN Ativan - No signs of alcohol withdrawal CHRONIC ASPIRATION: -speech eval last admission and barium swallow suggest some silent aspiration but video swallow study suggested no aspiration -continue current diet -has outpatient follow up arranged CHRONIC SINUSITIS: - Fluticasone ordered Disposition d/c home ff up with PCP this week follow up with [facility] c/o Dr. Armstrong/Dr. Gill in 1-2 weeks Current Inpatient Medications: Current Inpatient Medications Medications (Trade) Dose Ordered Sig/Rigoberto Route Start Time Stop Time Status Last Admin Dose Admin Acetaminophen (Tylenol Tab) 650 mg Q4H PRN PO 10/03/17 12:45 11/02/17 12:44 10/03/17 20:41 650 MG Ondansetron HCl (Zofran Inj) 4 mg Q6H PRN IV 10/03/17 12:45 11/02/17 12:44 10/06/17 00:16 4 MG Polyethylene (Miralax Powder Packet) 17 gm DAILY PRN PO 10/03/17 12:45 11/02/17 12:44 Salmeterol Xinafoate/ Fluticasone (Advair Diskus 250/50 Inh) 1 puff BID INH 10/03/17 21:00 11/02/17 20:59 10/12/17 08:37 1 PUFF Roflumilast (Daliresp Tab) 500 mcg DAILY PO 10/04/17 09:00 11/03/17 08:59 10/12/17 08:37 500 MCG Thiamine HCl (Vitamin B-1 Tab) 100 mg DAILY PO 10/04/17 09:00 11/03/17 08:59 10/12/17 08:37 100 MG Ipratropium [place] (Atrovent 0.02% 0.5MG/2.5ML Neb) 0.5 mg Q6R INH 10/04/17 09:30 11/03/17 09:29 10/12/17 07:02 0.5 MG Levalbuterol (Xopenex 1.25MG/ 0.5ML Neb) 1.25 mg Q6R INH 10/04/17 09:30 11/03/17 09:29 10/12/17 07:02 1.25 MG Lidocaine (Lidoderm Patch 5%) 1 patch QAM TD 10/04/17 09:30 11/03/17 09:29 10/12/17 08:37 1 PATCH Miscellaneous (Remove Lidoderm Patch) 1 ea DAILY@21 N/A 10/04/17 21:00 11/03/17 20:59 10/11/17 19:45 1 EA Acetaminophen/ Hydrocodone Bitart ([place] 5/325 Tab) 1 tab Q6 PRN PO 10/04/17 09:30 10/18/17 09:29 10/12/17 08:36 1 TAB Lorazepam (Ativan Inj) 0.5 mg Q6H PRN IV 10/05/17 14:00 11/04/17 13:59 Lorazepam (Ativan Inj) 1 mg ONE PRN IV 10/05/17 14:00 Lorazepam (Ativan Tab) 0.5 mg Q4H PRN PO 10/06/17 09:45 11/05/17 09:44 10/07/17 16:26 0.5 MG Enoxaparin Sodium (Lovenox Inj) 40 mg QAM SQ 10/07/17 09:00 11/06/17 08:59 10/12/17 08:40 40 MG Cyclobenzaprine HCl (Flexeril Tab) 5 mg BID PRN PO 10/08/17 09:00 11/07/17 08:59 10/10/17 10:10 5 MG Ioversol (Optiray 320) 100 ml UD PRN IV 10/08/17 11:15 10/12/17 11:14 Prednisone (PredniSONE TAB) 40 mg DAILY PO 10/10/17 09:00 11/07/17 08:59 10/12/17 08:37 40 MG
[2017-10-12] MEDS ORDERED: ATRINS INH (11:17)
[2017-10-12] MEDS ORDERED: PRED10TA PO (11:17)
[2017-10-12] MEDS ORDERED: XPNINS1255 INH (11:17)
--- NOTE | 2017-10-12 11:27 | Discharge Instructions ---
Discharge Instructions Date of Service October 12, 2017. Admission Reason for Admission: Copd, Elevated Troponin Discharge Discharge Diagnosis / Problem: COPD EXACERBATION Discharge Goals Goal(s): Diagnostic testing, Therapeutic intervention Activity Recommendations Activity Limitations: as noted below (NO HEAVY EXERTION UNTIL RE-EVALUATED BY PRIMARY CARE PHYSICIAN) Lifting Limitations: until after follow-up appointment Driving or Machine Use: NO DRIVING UNTIL RE-EVALUATED BY PRIMARY CARE PHYSICIAN . Instructions / Follow-Up Instructions / Follow-Up PLEASE REVIEW YOUR NEW MEDICATION LIST AND FOLLOW INSTRUCTIONS CAREFULLY. CALL YOUR PRIMARY CARE PHYSICIAN/LICENSING WORKER OR RETURN TO ER IMMEDIATELY IF WITH RECURRENCE OF SYMPTOMS, INCREASING COUGH, INCREASING PHLEGM, FEVER, SHORTNESS OF BREATH, INCREASING PAIN. NO SMOKING, ALCOHOL USE. FOLLOW UP WITH DR. QUIROZ ON SATURDAY OCTOBER 14, 2017 AT 2:05PM. FOLLOW UP WITH [facility] C/O DR. VINCENT FIERRO OR DR. DAWN ALONSO IN 1-2 WEEKS. PLEASE CALL THEIR OFFICE FOR AN APPOINTMENT Current Hospital Diet Patient's current hospital diet: Regular Diet Discharge Diet Recommended Diet: AHA Diet (Heart Healthy) Procedures Procedures Performed: CHEST XRAY AND CT SCAN, RIB XRAY, GALLBLADDER US Pending Studies Studies pending at discharge: no Laboratory Results Lipid Panel Test 10/04/17 06:28 Range/Units Triglycerides Level 56 0-150 mg/dl Cholesterol Level 143 0-200 mg/dl HDL Cholesterol 78 mg/dl Cholesterol/HDL Ratio 1.8 LDL Cholesterol, Calculated 54 mg/dl Medical Emergencies . Who to Call and When: Medical Emergencies: If at any time you feel your situation is an emergency, please call 911 immediately. . Non-Emergent Contact Non-Emergency issues call your: Primary Care Provider, Chemistry Laboratory Technician Call Non-Emergent contact if: you have a fever, your pain is not controlled, your pain is worsening, you have any medication questions . . "Provider Documentation" section prepared by Ag Pichardo. .
--- NOTE | 2017-10-12 11:36 | Discharge Summary ---
Discharge Summary Date of Service October 12, 2017. Discharge Summary Admission Date: Oct 03, 2017 at 12:45 Discharge Date: October 12, 2017 Discharge Disposition: nursing home facility Principal Diagnosis: COPD EXACERBATION Secondary Diagnoses/Problems: PLEASE REFER TO HOSPITAL COURSE BELOW. Procedures: SINGLE VIEW CHEST CLINICAL HISTORY: Dyspnea. FINDINGS: 2 AP, portable, upright chest radiographs are compared to study dated 06/13/2017 and correlated with chest CT dated 06/23/2017. The examination is mildly degraded by portable technique. The cardiomediastinal silhouette is unremarkable. There is atherosclerotic calcification of the thoracic aorta. The pulmonary vasculature is noncongested. Enlargement the central pulmonary vessels unchanged and suggests pulmonary artery hypertension. Emphysema and chronic interstitial thickening are similar to previous. Patchy airspace opacities are identified at the left lung base. The lungs are otherwise clear. No large pleural effusion or pneumothorax is seen. The skeletal structures are osteopenic. The bony thorax is grossly intact. IMPRESSION: 1. Advanced emphysema. 2. Patchy airspace consolidation is again seen at the left lung base, and is similar in appearance to the 06/13/2017 examination. This could represent scarring versus an infectious/inflammatory pneumonitis. Clinical correlation will be required and radiographic follow-up to resolution is recommended. R RIBS UNILATERAL WITH PA CHEST CLINICAL HISTORY: R/O RIB FX, FALL trauma. Pain. COMPARISON STUDY: 06/13/1999 8T none. 05/21/2017. FINDINGS: Right rib show no acute abnormality. Cortical margins are intact. Right lung is clear with no evidence for pneumothorax. Slightly progressive interstitial/ pleural reactive change left lung base. This is progressive compared to the prior several chest series. CT of the chest suggested as follow-up. IMPRESSION: 1. No acute abnormality of the right ribs. 2. No evidence pneumothorax. 3. Somewhat progressive pleural based density left base laterally. 4. CT of the chest is suggested as follow-up. The above report was generated using voice recognition software. It may contain grammatical, syntax or spelling errors. CT SCAN OF THE CHEST WITH IV CONTRAST CLINICAL HISTORY: Increasing left pleural disease. COMPARISON STUDY: Chest CT scans dated 06/23/2017, 05/20/2017, and 04/23/2017. TECHNIQUE: Following the IV administration of 93 cc of Optiray 320, CT scan of the thorax was performed from the thoracic inlet to the upper abdomen. Images are reviewed in the axial, sagittal, and coronal planes. IV contrast was administered without complication. A dose lowering technique was utilized adhering to the principles of ALARA. The examination is moderately degraded by motion artifact. CT DOSE: 259.18 mGy.cm FINDINGS: Thyroid: Imaged portions of the thyroid gland are normal in size and attenuation. Thoracic aorta: There is atherosclerotic calcification of the thoracic aorta, which is normal in caliber and demonstrates standard 3-vessel arch anatomy. No dissection is seen. Advanced atherosclerotic calcification is seen in the distal right common carotid artery. Pulmonary vasculature: The main pulmonary arteries are dilated suggesting pulmonary artery hypertension. There are no filling defects identified in the central pulmonary vessels to indicate pulmonary embolus. Note that this examination was not protocoled for evaluation of the pulmonary arteries. Heart: The heart is mildly enlarged and there is trace pericardial effusion. The coronary arteries are densely calcified. Lungs and pleural spaces: Evaluation of the lung parenchyma is modestly degraded by motion artifact. There is advanced emphysema. Small pleural effusions are identified. There are numerous scattered calcified granulomas. Subpleural opacities in the left lung base have modestly cleared from 06/23/2017. Mild diffuse peribronchial thickening is identified. Fluid/secretions are present in the left lower lobe bronchi. Mediastinum: There is no mediastinal lymphadenopathy. Ana: There are calcified right hilar nodes. No hilar adenopathy is seen. Axillae: There is no axillary lymphadenopathy. Upper abdomen: There is a small hiatal hernia. There is evidence of hepatic steatosis. Numerous calcified granulomas are seen in the spleen. There is cortical atrophy of the partially imaged kidneys. Skeletal structures: The skeletal structures are osteopenic. Degenerative change is seen in the shoulders. No lytic or blastic bony lesions are seen. IMPRESSION: 1. Cardiomegaly and advanced emphysema. 2. There are small bilateral pleural effusions, new from 06/23/2017. 3. Subpleural opacities are again seen at the left lung base and appear modestly cleared from 06/23/2017. 6 month follow-up chest CT is recommended to document complete resolution. 4. Fluid/debris is present within the left lower lobe airways. Correlate for evidence of aspiration. 5. Mild diffuse peribronchial thickening suggests reactive airway disease. 6. Additional findings as above. KUB HISTORY: Acute abdominal pain with concern for bowel obstruction r/o obstruction COMPARISON: PET CT 07/07/2017 FINDINGS: The bowel gas pattern is non-obstructive. There is no organomegaly. Indeterminate 8 mm density projects over the abdominal right upper quadrant at the level of L2 without correlate seen on comparison PET CT 07/07/2017. No pneumoperitoneum or pneumatosis. No fracture. Multilevel degenerative changes about the spine, hips and pelvis. Atelectasis/scarring of the left lung base. IMPRESSION: 1. No evidence of small bowel obstruction or pneumatosis. 2. 8 mm round density projecting over the abdominal right upper quadrant is indeterminate and may reflect a gallstone, likely too cephalad to reflect a urolith. HISTORY: Generalized abdominal pain. Abnormal KUB. r/o cholelithiasis. COMPARISON: KUB 10/10/2017. FINDINGS: Pancreas: The pancreatic head and tail are obscured by overlying bowel gas. The remaining portions of the pancreas are within normal limits. Pancreatic duct is top normal in diameter measuring 3 mm. Liver: Unremarkable. Gallbladder: No gallbladder wall thickening. No gallstones. CBD: 7 mm. This is also top normal for age. Right kidney: No hydronephrosis. IMPRESSION: 1. No gallstones identified. 2. No gallbladder wall thickening. 3. The pancreatic duct is top normal in diameter measuring 3 mm. Consultations: PULMONARY DR. FIERRO/DR. ALONSO Pending Studies/Follow-Up: PLEASE REFER TO HOSPITAL COURSE BELOW. Medication Reconciliation New Medications: Prednisone Tab (Prednisone) 10 Mg Tab 10 MG PO UD, #50 TAB take 4 tabs po daily x 4 days, then take 3 tabs po daily x 4 days, then take 2 tabs po daily x 4 days, then take 1 tab po daily Ipratropium [place] (Ipratropium [place]) 0.5 Mg/2.5 Ml Nebu 0.5 MG INH TID for 7 Days, #30 UNIT 2 Refills may also use every 4 hours as needed for shortness of breath/wheezing Levalbuterol (Levalbuterol) 1.25 Mg/0.5 Ml Nebu 1.25 MG INH TID for 7 Days, #30 UNIT 2 Refills may also use every 4 hours as needed for shortness of breath/wheezing Continued Medications: Albuterol Sulfate (Proair Respiclick) 108 Mcg/Act Aer 2 PUFF PO Q4H PRN for SOB/Wheezing Fluticasone Prop/Salmeterol (Advair Diskus 250/50 60 Dose) 1 Ea Aerp 1 PUFF INH BID, INHALER Roflumilast (Daliresp) 500 Mcg Tab 500 MG PO DAILY, TAB 5 Refills Thiamine Hcl (Vitamin B-1) 100 Mg Tab 100 MG PO DAILY, TAB Discontinued Medications: Albuterol Sulf (Proventil 0.083% 2.5MG/3ML) 2.5 Mg/3 Ml Nebu 1 VIAL NEB QID PRN for SOB/Wheezing, EA Prednisone (Prednisone) 10 Mg Tab 10 MG PO DAILY, TAB Admission Information HPI (per Admitting provider): Patient is a 76 yo male who presents to the hospital for complaints of progressively worsening SOB, cough, and XIAO that initially started around 1.5 weeks ago. The patient has noticed even with walking short distances and with oxygen, he still feels he is unable to catch his breath. He does also report having nasal congestion and post nasal drainage. He reports he has been experiencing headaches with this as well. The cough was productive initially of yellow phlegm but now has been clear and more copious. Does report intermittent chest tightness but no chest pain. He denies any sick contacts. His smokes but not in the house, and the patient states he has not smoked in 1.5 years. The patient also reports that he fell on Wednesday while he was inebriated but did not lose consciousness or have any severe injuries from that event. He states he has been complaint with his medications and nebulizers but feels that nothing has helped thus far. The patient reports never experiencing withdrawal from alcohol but does admit he drinks about 6-8 beers a day and on some occasions he drinks that plus liquor containing drinks. Physical Exam (per Admitting): General Appearance: WD/WN, no apparent distress Head: normocephalic, atraumatic Eyes: PERRL, EOMI ENT: hearing grossly normal Neck: supple, no JVD, no carotid bruits, trachea midline Respiratory/Chest: chest non-tender, no respiratory distress, no accessory muscle use, + decreased breath sounds Cardiovascular: regular rate, rhythm, no edema, no gallop, no JVD Abdomen/GI: normal bowel sounds, non tender, soft, no organomegaly Back: no CVA tenderness, no muscle spasm, + pertinent finding (papular rash ) Extremities/Musculoskelatal: no calf tenderness, normal capillary refill, no pedal edema Neurologic/Psych: no motor/sensory deficits, alert, normal mood/affect, oriented x 3 Skin: normal color, warm/dry, + rash Hospital Course COPD EXACERBATION, possible ACUTE BRONCHITIS CHRONIC RESPIRATORY FAILURE -chronically on 2L of oxygen and prednisone 10mg -CXR shows LLL infiltrate that was present on prior xray -Pulmonary consulted, patient well known to their service and concerned over the persistent LLL infiltrate Sputum culture revealing Pseudomonas Changed cefepime to ceftazidime, received 7 days of antibiotics Changed Solu-Medrol to prednisone, now at 40 mg daily given Nebs Q4H evaluated by Pulmonary service- Dr. Fierro and Dr. Alonso- Bronchoscopy was initially contemplated, no plans for Bronchoscopy at this time as Left Lower Lobe Infiltrate/Nodule felt to be stable since 04/2017 patient gradually improved, back to baseline discharge plan: continue Prednisone taper x 2 weeks, then resume usual Prednisone 10mg po daily Nebs TID and Q4h PRN continue Advair follow up with [facility] c/o Dr. Fierro/Dr. Alonso in 1-2 weeks RIGHT RIB PAIN Started after the the patient's fall Rib X-ray: No signs of fracture given Lidoderm patch Flexeril twice daily as needed Pain resolved monitor Abdominal wall fullness likely secondary to mild edema from IV fluids and steroids Lasix 20 mg p.o. given improved monitor FLUCTUATING BLOOD PRESSURE patient has intermittent elevated BP follow up as outpatient TROPONIN ELEVATION: -likely demand ischemia related to tachycardia -serial troponins down trended -EKG does not show any ST or T wave abnormalities -Stress test as outpatient RECENT FALL - secondary to alcohol intoxication - pain along right posterior side - lidoderm patch and PRN norco ordered CHRONIC ALCOHOL DEPENDENCE: -patient is a daily drinker, denies any prior hx of withdrawal - Alc Withdrawal Protocol placed PRN Ativan - No signs of alcohol withdrawal CHRONIC ASPIRATION: -speech eval last admission and barium swallow suggest some silent aspiration but video swallow study suggested no aspiration -continue current diet -has outpatient follow up arranged CHRONIC SINUSITIS: - Fluticasone ordered Disposition d/c home ff up with PCP this week follow up with [facility] Service c/o Dr. Fierro/Dr. Alonso in 1-2 weeks Total time spent on discharge = 45 minutes This includes examination of the patient, discharge planning, medication reconciliation, and communication with other providers. Discharge Instructions Discharge Instructions Date of Service October 12, 2017. Admission Reason for Admission: Copd, Elevated Troponin Discharge Discharge Diagnosis / Problem: COPD EXACERBATION Discharge Goals Goal(s): Diagnostic testing, Therapeutic intervention Activity Recommendations Activity Limitations: as noted below (NO HEAVY EXERTION UNTIL RE-EVALUATED BY PRIMARY CARE PHYSICIAN) Lifting Limitations: until after follow-up appointment Driving or Machine Use: NO DRIVING UNTIL RE-EVALUATED BY PRIMARY CARE PHYSICIAN . Instructions / Follow-Up Instructions / Follow-Up PLEASE REVIEW YOUR NEW MEDICATION LIST AND FOLLOW INSTRUCTIONS CAREFULLY. CALL YOUR PRIMARY CARE PHYSICIAN/MOTORCYCLE RACER OR RETURN TO ER IMMEDIATELY IF WITH RECURRENCE OF SYMPTOMS, INCREASING COUGH, INCREASING PHLEGM, FEVER, SHORTNESS OF BREATH, INCREASING PAIN. NO SMOKING, ALCOHOL USE. FOLLOW UP WITH DR. QUIROZ ON SATURDAY OCTOBER 14, 2017 AT 2:05PM. FOLLOW UP WITH [facility] C/O DR. VINCENT FIERRO OR DR. DAWN ALONSO IN 1-2 WEEKS. PLEASE CALL THEIR OFFICE FOR AN APPOINTMENT Current Hospital Diet Patient's current hospital diet: Regular Diet Discharge Diet Recommended Diet: AHA Diet (Heart Healthy) Procedures Procedures Performed: CHEST XRAY AND CT SCAN, RIB XRAY, GALLBLADDER US Pending Studies Studies pending at discharge: no Laboratory Results Lipid Panel Test 10/04/17 06:28 Range/Units Triglycerides Level 56 0-150 mg/dl Cholesterol Level 143 0-200 mg/dl HDL Cholesterol 78 mg/dl Cholesterol/HDL Ratio 1.8 LDL Cholesterol, Calculated 54 mg/dl Medical Emergencies . Who to Call and When: Medical Emergencies: If at any time you feel your situation is an emergency, please call 911 immediately. . Non-Emergent Contact Non-Emergency issues call your: Primary Care Provider, Bread Distributor Call Non-Emergent contact if: you have a fever, your pain is not controlled, your pain is worsening, you have any medication questions . . "Provider Documentation" section prepared by Ag Pichardo.
[2017-10-12 11:45] VITALS: BP 134/69; PULSE 90; TEMP 36.9; O2SAT 95
[2017-10-13] MEDS ORDERED: CEFAZOLIN SOD 2000MG/15 ML IV PUSH ONE (08:03)
== END 2017-10-12 13:55 | disposition home or self-care (01) | DRG 191 ==
LOC: C.EDB 10:10 → C.2E 12:45 → ENRESERV 14:02
PROVIDERS: ADMIT Internal Medicine; ATTEND Internal Medicine
DX: J44.1 Chronic obstructive pulmonary disease with (acute) exacerbation (principal); J96.10 Chronic respiratory failure, unspecified whether with hypoxia or hypercapnia; I24.8 Other forms of acute ischemic heart disease; J44.0 Chronic obstructive pulmonary disease with (acute) lower respiratory infection; J20.8 Acute bronchitis due to other specified organisms; B96.5 Pseudomonas (aeruginosa) (mallei) (pseudomallei) as the cause of diseases classified elsewhere; R07.81 Pleurodynia; M54.9 Dorsalgia, unspecified; W19.XXXA Unspecified fall, initial encounter; F10.20 Alcohol dependence, uncomplicated; J98.4 Other disorders of lung; J32.9 Chronic sinusitis, unspecified; R60.0 Localized edema; T38.0X5A Adverse effect of glucocorticoids and synthetic analogues, initial encounter; R03.0 Elevated blood-pressure reading, without diagnosis of hypertension; Z87.891 Personal history of nicotine dependence; Z99.81 Dependence on supplemental oxygen; Z79.52 Long term (current) use of systemic steroids; Z79.899 Other long term (current) drug therapy

== ENCOUNTER 2021-08-23 13:13 | Inpatient (IN) ==
[2021-08-23 14:14] LABS: Basophils # (auto) 0.04 K/uL (0-0.2); Basophils % (auto) 0.4 %; Eosinophils # (auto) 0.86 K/uL (0-0.5); Hematocrit (blood only) 37.9 % (42-52); Hemoglobin 12.7 g/dL (14.0-18.0); Immature Granulocytes # (auto) 0.01 K/uL (0.00-0.02); Immature Granulocytes % (auto) 0.1 %; Lymphocytes # (auto) 1.94 K/uL (1.2-3.4); Lymphocytes % (auto) 20.3 %; Mean Corpuscular Hemoglobin 32.3 pg (25-34); Mean Corpuscular Hgb Conc 33.5 g/dL (32-36); Mean Corpuscular Volume 96.4 fL (80-100); Mean Platelet Volume 9.4 fL (7.4-10.4); Monocytes # (auto) 0.46 K/uL (0.11-0.59); Monocytes % (auto) 4.8 %; Neutrophils # (auto) 6.24 K/uL (1.4-6.5); Neutrophils % (auto) 65.4 %; Platelet Count 208 K/uL (130-400); RDW Standard Deviation 49.7 fL (36.4-46.3); Red Blood Count 3.93 M/uL (4.7-6.1); White Blood Count 9.55 K/uL (4.8-10.8)
--- NOTE | 2021-08-23 14:25 | Emergency Department Note ---
Impression & Plan COPD (chronic obstructive pulmonary disease), Elevated troponin I level, Hypomagnesemia, Acute bronchitis ED Provider Note NAME: JORDAN BRADFORD JR AGE: 80 SEX: M : 1940 ARRIVES VIA: Ambulance INFORMANT: Patient, ED PROVIDER(S): León Padron DO CHIEF COMPLAINT: Shortness of breath HPI: Patient is a 80-year-old male who has a history of COPD who presented to emergency department for an evaluation of difficulty breathing. The patient states he has been having shortness of breath that has been worsening over the course the last few days. He has had a productive cough. He is also having coughing fits and during his coughing fits he becomes very short of breath. He called 911 today after a coughing fit he thought he was going to stop breathing. He received thyroids as well as nebulizer treatments prior to arrival. He states his symptoms are starting to improve but he still has very severe shortness of breath. He has noticed worsening shortness of breath with exertion. He denies having any swelling in the legs or fever. He states he said no hemoptysis. The patient normally wears oxygen at home between 2 to 4 L but he states most the time he keeps it at 2 L. He was at 7 L prior to arrival and on my evaluation is at 4 L nasal cannula. ROS: See above HPI for pertinent positives & negatives. A total of 10 systems reviewed and were otherwise negative. PAST MEDICAL HISTORY: See Below PAST SURGICAL HISTORY: See Below FAMILY HISTORY: See Below SOCIAL HISTORY: See Below HOME MEDICATIONS: See Below ALLERGIES: See Below VITALS: See Below PHYSICAL EXAMINATION: GENERAL: The patient is awake and alert. He is somewhat anxious appearing. EYES: The conjunctivae are clear. The pupils are round and reactive. EARS, NOSE, MOUTH AND THROAT: The nose is without any evidence of any deformity. NECK: The neck is nontender and supple. RESPIRATORY: Diminished breath sounds are noted throughout. Expiratory wheezing was noted in both lung kan. Pursed lip breathing and mild conversational dyspnea was appreciated. CARDIOVASCULAR: Tachycardic and regular heart sounds are noted auscultation. There is no significant murmur. GASTROINTESTINAL: The abdomen is soft. Abdomen is nontender. MUSCULOSKELETAL/EXTREMITIES: There is no evidence of gross deformity full range of motion is noted in the hips and shoulders. SKIN: There is no obvious evidence of any rash. There are no petechiae, pallor or cyanosis noted. NEUROLOGIC: Patient is awake alert and oriented x3 MEDICAL DECISION MAKING: The patient is a 80-year-old male who presented to the emergency department for an evaluation of difficulty breathing. The patient has a history of COPD. The patient normally has supplemental oxygen but had to increase his supplemental oxygen at home as well as prior to arrival. The patient was treated with multiple bronchodilator treatments prior to arrival. He was also treated in the emergency department with bronchodilator therapy as well as IV steroids prior to arrival. The patient was reevaluated multiple times. I discussed the patient's laboratory and radiographic studies with him. [facility] have agreed to evaluate the patient in the emergency department. The patient was feeling much better and supple oxygen on reevaluation. Triage Nursing notes reviewed. Prior medical records reviewed Vital Signs: reviewed and remarkable for elevated blood pressure. Differential diagnosis: Reactive airway disease, pneumonia, pneumothorax, COPD, CHF, infections, cardiac ischemia, pulmonary embolism, musculoskeletal, gastrointestinal, as well as other pathologies. ER treatment provided: See below Diagnostics interpreted by me: ECG: EKG was obtained in the emergency department. My interpretation is sinus rhythm at 90 bpm. PACs were noted. There is no acute ST segment abnormalities noted. This was compared to a tracing from December 272017. The ectopy is new otherwise no changes were noted. Cardiac Monitoring: An order was placed for continuous cardiac monitoring. The monitor shows a rate of 85 bpm with sinus rhythm. Laboratory studies: As stated above and show below. Imaging studies: See below Consultation(s): I discussed this case with Ester who [facility] ED COURSE: Procedures: none Critical Care: I have personally spent greater than 35 minutes of critical care time in the direct management of this patient. This includes bedside care, interpretation of diagnostic studies, and testing, discussion with consultants, patient, and family members, and other required patient management activities. This 35 minutes is in excess of all separately billable procedures. Past Med/Surg History Medical History Alcohol abuse Chronic obstructive pulmonary disease Chronic respiratory failure Fibrosis of lung GERD with esophagitis History of tobacco use On home oxygen therapy WEARS O2 AT 2L CONT. 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 Beliefs That Will Affect Care: None Current Living Situation: Spouse Other Information That Helps Us Care for You: No Feels Safe at Home: Yes Assistive Devices: Oxygen - Continuous Allergies Allergies Allergy/AdvReac Type Severity Reaction Status Date / Time No Known Allergies Allergy Verified 08/23/21 14:45 Home Meds Home Medications Medication Instructions Recorded Confirmed albuterol sulfate 90 mcg/actuation 2 puffs INH Q4H PRN ea 04/11/19 08/23/21 breath activated powder inhaler (ProAir RespiClick) folic acid 1 mg tablet 1 mg PO QAM tab 04/11/19 08/23/21 ipratropium 0.5 mg-albuterol 3 mg 3 ml INH QID PRN ml 04/11/19 08/23/21 (2.5 mg base)/3 mL nebulization soln roflumilast 500 mcg tablet 500 mcg PO QAM 04/11/19 08/23/21 (Daliresp) thiamine HCl (vitamin B1) 100 mg 100 mg PO QAM 04/11/19 08/23/21 tablet cyanocobalamin (vitamin B-12) 100 100 mcg PO DAILY 08/23/21 08/23/21 mcg tablet fluticasone 250 mcg-salmeterol 50 1 inh INHALATION BID 08/23/21 08/23/21 mcg/dose blistr powdr for inhalation (Advair Diskus) prednisone 1 mg tablet 1 mg PO QAM 08/23/21 08/23/21 Results & Data (ED) Vital Signs Vital Signs - 24 hr 08/23/21 13:34 08/23/21 13:35 08/23/21 13:43 Temperature 36.7 C Temperature Source Oral Pulse Rate 105 H Pulse Rate from SpO2 Sensor 102 H Pulse Rhythm Regular Respiratory Rate 26 H 28 H Respiratory Effort / Characteristics Respiratory Depth Shallow Respiratory Pattern Blood Pressure 151/91 H Blood Pressure Mean 111 Blood Pressure Position Lying Pulse Oximetry 96 96 98 Oxygen Delivery Method Nasal Cannula Nasal Cannula Oxygen Flow Rate 4 7 Sepsis Recent Fever Within 48 Hours No Sepsis New/Unexplained Change in Mental Status No Sepsis Action Taken by Nursing Physician Notified Oxygen Flow Rate - Titration 4 Pulse Oximetry Post Tiitration 96 08/23/21 14:00 08/23/21 14:01 08/23/21 14:05 Temperature Temperature Source Pulse Rate 101 H 89 107 H Pulse Rate from SpO2 Sensor 91 H 128 H Pulse Rhythm Respiratory Rate 31 H 29 H 26 H Respiratory Effort / Characteristics Respiratory Depth Respiratory Pattern Blood Pressure 137/83 Blood Pressure Mean 101 Blood Pressure Position Pulse Oximetry 98 93 95 Oxygen Delivery Method Nasal Cannula Oxygen Flow Rate 3 Sepsis Recent Fever Within 48 Hours Sepsis New/Unexplained Change in Mental Status Sepsis Action Taken by Nursing Oxygen Flow Rate - Titration Pulse Oximetry Post Tiitration 08/23/21 14:30 08/23/21 14:35 08/23/21 15:00 Temperature Temperature Source Pulse Rate 104 H 96 H Pulse Rate from SpO2 Sensor 107 H 80 Pulse Rhythm Respiratory Rate 33 H 34 H Respiratory Effort / Characteristics Spontaneous Gasping/Agonal Short of Breath Respiratory Depth Shallow Respiratory Pattern Regular Blood Pressure 135/106 H 136/78 Blood Pressure Mean 115 97 Blood Pressure Position Pulse Oximetry 87 L 98 Oxygen Delivery Method Nasal Cannula Oxygen Flow Rate 3 Sepsis Recent Fever Within 48 Hours Sepsis New/Unexplained Change in Mental Status Sepsis Action Taken by Nursing Oxygen Flow Rate - Titration Pulse Oximetry Post Tiitration 08/23/21 15:30 Temperature Temperature Source Pulse Rate 100 H Pulse Rate from SpO2 Sensor Pulse Rhythm Respiratory Rate 21 Respiratory Effort / Characteristics Respiratory Depth Respiratory Pattern Blood Pressure Blood Pressure Mean Blood Pressure Position Pulse Oximetry Oxygen Delivery Method Oxygen Flow Rate Sepsis Recent Fever Within 48 Hours Sepsis New/Unexplained Change in Mental Status Sepsis Action Taken by Nursing Oxygen Flow Rate - Titration Pulse Oximetry Post Tiitration Home Medications Current Medication List: was personally reviewed by me Laboratory Data Attestation: I reviewed the patient's lab results. Result diagrams: 08/23/21 14:00 03/19/22 14:00 Lab Results 08/23/21 08/23/21 08/23/21 Range/Units 14:00 14:00 14:00 WBC 9.55 (4.8-10.8) K/uL RBC 3.93 L (4.7-6.1) M/uL Hgb 12.7 L (14.0-18.0) g/dL Hct 37.9 L (42-52) % MCV 96.4 (80-100) fL MCH 32.3 (25-34) pg MCHC 33.5 (32-36) g/dL RDW Std Deviation 49.7 H (36.4-46.3) fL RDW Coeff of Julissa 14.0 (11.5-14.5) % Plt Count 208 (130-400) K/uL MPV 9.4 (7.4-10.4) fL Immature Gran % (Auto) 0.1 % Neut % (Auto) 65.4 % Lymph % (Auto) 20.3 % Denali % (Auto) 4.8 % Eos % (Auto) 9.0 % Baso % (Auto) 0.4 % Neut # (Auto) 6.24 (1.4-6.5) K/uL Lymph # (Auto) 1.94 (1.2-3.4) K/uL Den[place] # (Auto) 0.46 (0.11-0.59) K/uL Eos # (Auto) 0.86 H (0-0.5) K/uL Baso # (Auto) 0.04 (0-0.2) K/uL Immature Gran # (Auto) 0.01 (0.00-0.02) K/uL PT 11.4 (9.0-12.0) Seconds INR 1.1 (0.9-1.1) APTT 24.4 (21.0-31.0) Seconds PTT Ratio 0.9 VBG pH (7.36-7.41) VBG pCO2 (38-50) mmHg VBG pO2 mmHg VBG HCO3 mmol/L VBG O2 Saturation % VBG Base Excess mEq/L Barometric Pressure mm/Hg Sodium 138 (136-145) mmol/L Potassium 3.9 (3.5-5.1) mmol/L Chloride 99 (98-107) mmol/L Carbon Dioxide 29 (21-32) mmol/L Anion Gap 10 (3-11) BUN 7 (6-23) mg/dl Creatinine 0.73 (0.6-1.4) mg/dl Est Cr Clr Drug Dosing 61.7 ml/min Est GFR ( Amer) 103.0 ml/min Est GFR (Non-Af Amer) 88.8 ml/min BUN/Creatinine Ratio 9.6 L (10-20) Glucose 107 H (70-99(Fasting)) mg/dl Calcium 9.5 (8.5-10.1) mg/dl Magnesium 1.5 L (1.7-2.4) mg/dl Total Bilirubin 0.4 (0.2-1.0) mg/dl AST 21 (13-39) U/L ALT 9 (7-52) U/L Alkaline Phosphatase 90 (34-104) U/L Troponin I 0.27 H* (0-0.04) ng/ml Total Protein 6.6 (6.0-8.3) gm/dl Albumin 3.7 (3.4-5.0) gm/dl Globulin 2.9 (2.5-4.0) gm/dl Albumin/Globulin Ratio 1.3 (0.9-2) Influ A Molecular Assay (Negative) Influ B Molecular Assay (Negative) SARS-CoV-2, RNA, NAAT (NEGATIVE) 08/23/21 08/23/21 08/23/21 Range/Units 14:23 14:23 14:48 WBC (4.8-10.8) K/uL RBC (4.7-6.1) M/uL Hgb (14.0-18.0) g/dL Hct (42-52) % MCV (80-100) fL MCH (25-34) pg MCHC (32-36) g/dL RDW Std Deviation (36.4-46.3) fL RDW Coeff of Julissa (11.5-14.5) % Plt Count (130-400) K/uL MPV (7.4-10.4) fL Immature Gran % (Auto) % Neut % (Auto) % Lymph % (Auto) % Den[place] % (Auto) % Eos % (Auto) % Baso % (Auto) % Neut # (Auto) (1.4-6.5) K/uL Lymph # (Auto) (1.2-3.4) K/uL Den[place] # (Auto) (0.11-0.59) K/uL Eos # (Auto) (0-0.5) K/uL Baso # (Auto) (0-0.2) K/uL Immature Gran # (Auto) (0.00-0.02) K/uL PT (9.0-12.0) Seconds INR (0.9-1.1) APTT (21.0-31.0) Seconds PTT Ratio VBG pH 7.36 (7.36-7.41) VBG pCO2 52 H (38-50) mmHg VBG pO2 24 mmHg VBG HCO3 29 mmol/L VBG O2 Saturation < 60.0 % VBG Base Excess 2.3 mEq/L Barometric Pressure 722.9 mm/Hg Sodium (136-145) mmol/L Potassium (3.5-5.1) mmol/L Chloride (98-107) mmol/L Carbon Dioxide (21-32) mmol/L Anion Gap (3-11) BUN (6-23) mg/dl Creatinine (0.6-1.4) mg/dl Est Cr Clr Drug Dosing ml/min Est GFR ( Amer) ml/min Est GFR (Non-Af Amer) ml/min BUN/Creatinine Ratio (10-20) Glucose (70-99(Fasting)) mg/dl Calcium (8.5-10.1) mg/dl Magnesium (1.7-2.4) mg/dl Total Bilirubin (0.2-1.0) mg/dl AST (13-39) U/L ALT (7-52) U/L Alkaline Phosphatase (34-104) U/L Troponin I (0-0.04) ng/ml Total Protein (6.0-8.3) gm/dl Albumin (3.4-5.0) gm/dl Globulin (2.5-4.0) gm/dl Albumin/Globulin Ratio (0.9-2) Influ A Molecular Assay Negative (Negative) Influ B Molecular Assay Negative (Negative) SARS-CoV-2, RNA, NAAT NEGATIVE (NEGATIVE) Administered Medications Discontinued Medications Albuterol (Albut/Ipratrop 3mg/0.5mg Neb 3 Ml Vial) 3 ml NEB NOW STA; Protocol Stop: 08/23/21 15:40 Last Admin: 08/23/21 15:47 Dose: 3 ml Documented by: [id number] Ceftriaxone Sodium (Rocephin) 1,000 mg in 50 mls @ 100 mls/hr IV NOW STA Stop: 08/23/21 15:19 Last Infusion: 08/23/21 15:30 Dose: 0 mls/hr Documented by: [id number] Admin: 08/23/21 14:59 Dose: 100 mls/hr Documented by: [id number] Magnesium Sulfate/Dextrose (Magnesium Sulfate / D5w) 1 gm in 100 mls @ 100 mls/hr IV Q1H CHILO Stop: 08/23/21 16:51 Last Infusion: 08/23/21 17:10 Dose: 0 mls/hr Documented by: [id number] Admin: 08/23/21 15:58 Dose: 100 mls/hr Documented by: [id number] Infusion: 08/23/21 15:58 Dose: 100 mls/hr Documented by: [id number] Admin: 08/23/21 15:06 Dose: 100 mls/hr Documented by: [id number] Imaging Data Radiologist's Impression: Chest X-Ray 08/23/21 14:05 XR chest 1V portable CLINICAL HISTORY: Dyspnea COMPARISON STUDY: Chest CT April 16, 2021. FINDINGS: No pneumothorax or pleural effusion is noted. Emphysema is present. Cardiac size is normal. Mediastinal contours are normal. Left basilar linear densities are unchanged and favor scarring. Left perihilar densities are also unchanged and favor scarring. The appearance of the chest is unchanged. IMPRESSION: No acute cardiopulmonary findings. Emphysema. No significant change in appearance of the chest. ACT 112: Negative or not required by law. Electronically signed by: Charles Litteljohn M.D. 08/23/2021 2:39 PM Discharge Plan Visit Data Chief Complaint: Shortness of Breath/Dyspnea Stated Complaint: SOB ED Provider: León Padron Discharge Problem: COPD (chronic obstructive pulmonary disease), Elevated troponin I level, Hypomagnesemia, Acute bronchitis Patient Disposition: Admitted As Inpatient Discharge Instructions Interventions: ED Discharge Assessment Last Done: 08/23/21 17:24
[2021-08-23 14:28] LABS: INR 1.1 (0.9-1.1); Partial Thromboplastin Ratio 0.9; Partial Thromboplastin Time 24.4 Seconds (21.0-31.0); Prothrombin Time 11.4 Seconds (9.0-12.0)
[2021-08-23 14:38] LABS: Albumin Globulin Ratio 1.3 (0.9-2); Albumin Level 3.7 gm/dl (3.4-5.0); BUN Creatinine Ratio 9.6 (10-20); Bilirubin,Total 0.4 mg/dl (0.2-1.0); Calcium 9.5 mg/dl (8.5-10.1); Creatinine Clr Calc Pharmacy 61.7 ml/min; Est GFR (Non-African American) 88.8 ml/min; Globulin 2.9 gm/dl (2.5-4.0); Magnesium 1.5 mg/dl (1.7-2.4); Potassium 3.9 mmol/L (3.5-5.1); Total Protein 6.6 gm/dl (6.0-8.3)
--- NOTE | 2021-08-23 14:41 | XRay Report ---
XR chest 1V portable CLINICAL HISTORY: Dyspnea COMPARISON STUDY: Chest CT April 16, 2021. FINDINGS: No pneumothorax or pleural effusion is noted. Emphysema is present. Cardiac size is normal. Mediastinal contours are normal. Left basilar linear densities are unchanged and favor scarring. Lef t perihilar densities are also unchanged and favor scarring. The appearance of the chest is unchanged . IMPRESSION: No acute cardiopulmonary findings. Emphysema. No significant change in appearance of the chest. ACT 112: Negative or not required by law. Electronically signed by: Charles Littlejohn M.D. 08/23/2021 2:39 PM
[2021-08-23 14:43] LABS: Troponin I 0.27 ng/ml (0-0.04)
[2021-08-23] MEDS ORDERED: cefTRIAXone SODIUM 1,000 MG/50 ML BAG IV STA (14:50)
[2021-08-23 15:01] LABS: Influenza A virus by PCR Negative (Negative); Influenza B virus by PCR Negative (Negative)
[2021-08-23] MEDS: MAGNESIUM SULFATE / D5W 1 GM/100 ML BAG IV SCH ×2 (15:06→15:58)
[2021-08-23 15:18] LABS: Base Excess VBG 2.3 mEq/L; HCO3 VBG 29 mmol/L; PCO2 VBG 52 mmHg (38-50); PO2 VBG 24 mmHg; pH VBG 7.36 (7.36-7.41)
[2021-08-23 15:19] LABS: Oxygen Saturation VBG < 60.0 %
[2021-08-23] MEDS ORDERED: ALBUT/IPRATROP 3MG/0.5MG NEB 3 ML VIAL NEB STA (15:39)
--- NOTE | 2021-08-23 17:23 | History & Physical Report ---
Date of Service August 23, 2021 Assessment & Plan (1) Acute and chronic respiratory failure: Plan: 2/2 COPD exacerbation. CXR clear of any pneumonia on admission. (2) COPD exacerbation: Plan: Changes is sputum color/amount, coughing, and dyspnea with worsening hypoxia consistent with COPD exacerbation. Starting Solumedrol now with scheduled bronchodilator therapy via nebulizer. Short course azithromycin ordered. (3) Elevated troponin I level: Plan: Possibly related to demand ischemia. Although the patient references chest discomfort, it is in the context of dyspneic and hypoxic episodes where he is having a hard time breathing. He does have poor functional capacity per his description of his capabilities. Last echo was Jan 2021 revealing a preserved EF, with moderate pulmonary hypertension. Will trend troponin overnight and monitor him on telemetry. (4) Hypomagnesemia: Plan: Replacement was given in the ER to replete and as a bronchodilator. Repeat level in am. (5) Alcohol abuse: Plan: Heavy alcohol use reported with noted elevation in heart rate and tremulousness. Although some of this may be related to the bronchodilator therapy, will cover with gabapentin and PRN Ativan per protocol. Banana bag ordered with daily thiamine and folic acid. (6) DVT prophylaxis: Plan: Lovenox Full Code per my discussion with him on admission. Dispo-to tele DO Rm [facility] History of Present Illness Chief Complaint: shortness of breath. Primary Care Provider: GARRETT Kaiser For one week, weak all over and SOB requiring more oxygen. On chronic oxygen supplementation. Coughing to get rid of phlegm, can't bring anything up. Feels like the coughing spells would cause him to be very SOB. He would change his breathing to help recover and today was having oo much trouble. Lifelong smoker, quit 10 years ago. Sputum is "dark green bacteria looking yuck" +chills, no fever +nausea related to SOB, no vomiting loose stool reported x 2 weeks, no afua diarrhea drinking history, 2 beers "at least" and one rum and coke daily-last drink was last night ROS: +chest pain substernal middle-associated with not breathing had it when he arrived to the ER, not present now chest pain and breathing is worse with any exertion "I can only walk 5 feet at baseline." Walks with a walker/independent at baseline. Allergies Allergy/AdvReac Type Severity Reaction Status Date / Time No Known Allergies Allergy Verified 08/23/21 14:45 Home Medications Medication Instructions Recorded Confirmed Type albuterol sulfate 90 mcg/actuation 2 puffs INH Q4H PRN ea 04/11/19 08/23/21 History breath activated powder inhaler (ProAir RespiClick) folic acid 1 mg tablet 1 mg PO QAM tab 04/11/19 08/23/21 History ipratropium 0.5 mg-albuterol 3 mg 3 ml INH QID PRN ml 04/11/19 08/23/21 History (2.5 mg base)/3 mL nebulization soln roflumilast 500 mcg tablet 500 mcg PO QAM 04/11/19 08/23/21 History (Daliresp) thiamine HCl (vitamin B1) 100 mg 100 mg PO QAM 04/11/19 08/23/21 History tablet cyanocobalamin (vitamin B-12) 100 100 mcg PO DAILY 08/23/21 08/23/21 History mcg tablet fluticasone 250 mcg-salmeterol 50 1 inh INHALATION BID 08/23/21 08/23/21 History mcg/dose blistr powdr for inhalation (Advair Diskus) prednisone 1 mg tablet 1 mg PO QAM 08/23/21 08/23/21 History Past Med/Surg History Medical History Alcohol abuse Chronic obstructive pulmonary disease Chronic respiratory failure Fibrosis of lung GERD with esophagitis History of tobacco use On home oxygen therapy WEARS O2 AT 2L CONT. 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 Physical Exam Physical Exam: CONSTITUTIONAL: thin, vitals as above, generally well- appearing, NAD EYES: normal conjunctivae, no scleral icterus ENT: external ear and nose normal, NECK: trachea midline, RESPIRATORY: diminished breath sounds to auscultation throughout. Some wheezing in anterior lungs kan. No crackles or rales. Normal respiratory effort CARDIOVASCULAR: regular rate and rhythm, S1 and 2 heard without murmurs, gallops or rubs, no JVD, no peripheral edema CHEST: inspection of chest was normal GASTROINTESTINAL: soft, nontender, ND, no guarding MUSCULOSKELETAL: strength 5/5 throughout, head is normocephalic and atraumatic SKIN: warm and dry, no rashes NEUROLOGIC: CN 2-12 grossly intact, no sensory deficit, normal cognition, normal speech, +tremulousness generally PSYCHIATRIC: alert cooperative and oriented to person, place and time. Results & Data Results & Data ([facility]) Vital Signs (Past 12 Hours) Vital Signs Temp Pulse Resp BP Pulse Ox 08/23/21 15:30 100 H 21 08/23/21 15:00 96 H 34 H 136/78 98 08/23/21 14:30 104 H 33 H 135/106 H 87 L 08/23/21 14:05 107 H 26 H 95 08/23/21 14:01 89 29 H 137/83 93 08/23/21 14:00 101 H 31 H 98 08/23/21 13:43 98 08/23/21 13:35 28 H 96 08/23/21 13:34 36.7 C 105 H 26 H 151/91 H 96 Laboratory Results Short CBC 08/23/21 Range/Units 14:00 WBC 9.55 (4.8-10.8) K/uL Hgb 12.7 L (14.0-18.0) g/dL Hct 37.9 L (42-52) % Plt Count 208 (130-400) K/uL BMP 08/23/21 14:00 Sodium 138 Potassium 3.9 Chloride 99 Carbon Dioxide 29 BUN 7 Creatinine 0.73 Glucose 107 H Calcium 9.5 Cardiac Enzymes 08/23/21 Range/Units 14:00 Troponin I 0.27 H* (0-0.04) ng/ml Liver Function 08/23/21 Range/Units 14:00 Total Bilirubin 0.4 (0.2-1.0) mg/dl AST 21 (13-39) U/L ALT 9 (7-52) U/L Alkaline Phosphatase 90 (34-104) U/L Albumin 3.7 (3.4-5.0) gm/dl Diagnostic Findings Chest X-Ray 08/23/21 14:05 XR chest 1V portable CLINICAL HISTORY: Dyspnea COMPARISON STUDY: Chest CT April 16, 2021. FINDINGS: No pneumothorax or pleural effusion is noted. Emphysema is present. Cardiac size is normal. Mediastinal contours are normal. Left basilar linear densities are unchanged and favor scarring. Left perihilar densities are also unchanged and favor scarring. The appearance of the chest is unchanged. IMPRESSION: No acute cardiopulmonary findings. Emphysema. No significant change in appearance of the chest. ACT 112: Negative or not required by law. Electronically signed by: Charles Littlejohn M.D. 08/23/2021 2:39 PM Code Status & VTE Plan VTE Prophylaxis Plan VTE Prophylaxis will be ordered: Yes
[2021-08-23] MEDS ORDERED: POLYETHYLENE (MIRALAX) 17 GM PACK PO PRN (18:13)
[2021-08-23] MEDS ORDERED: ACETAMINOPHEN 325 MG TAB PO PRN (18:13)
[2021-08-23 18:18] LABS: Appearance Urine Clear (Clear); Bacteria Urine Automated Negative (Negative); Bilirubin Urine Negative (Negative); Blood Urine Negative (Negative); Color Urine Yellow; Glucose Urine UA Negative (Negative); Ketones Urine Trace (Negative); Leukocyte Esterase Urine Trace (Negative); Nitrite Urine Negative (Negative); Protein Urine Negative (Negative); RBC Urine Automated 0-4 /hpf (0-4); Specific Gravity Urine 1.012 (1.000-1.030); Urobilinogen Urine Negative (Negative)
[2021-08-23] MEDS ORDERED: ALBUT/IPRATROP 3MG/0.5MG NEB 3 ML VIAL INH PRN (18:54)
[2021-08-23] MEDS: AZITHROMYCIN 250 MG TAB PO SCH (20:15)
[2021-08-23] MEDS: methylPREDNISolone 40 MG in SYRINGE 0 ML IV SCH (20:15)
[2021-08-23] MEDS ORDERED: GABAPENTIN 1200MG ALCOHOL WITHDRAWAL LOAD PO STA (22:37)
[2021-08-23] MEDS ORDERED: MULTI-VITAMIN INFUSION 10 ML, THIAMINE HCL 100 MG, FOLIC ACID 1 MG in SODIUM CHLORIDE 0... IV ONE (22:37)
[2021-08-23] MEDS ORDERED: GABAPENTIN 600 MG TAB PO ONE (22:37)
[2021-08-23] MEDS ORDERED: LORazepam 1 MG TAB PO PRN (22:39)
[2021-08-24] MEDS: methylPREDNISolone 40 MG in SYRINGE 0 ML IV SCH ×4 (02:03→21:44)
[2021-08-24] MEDS: GABAPENTIN 600 MG TAB PO SCH ×3 (06:09→21:44)
[2021-08-24] MEDS: ALBUT/IPRATROP 3MG/0.5MG NEB 3 ML VIAL INH SCH ×3 (06:30→15:17)
[2021-08-24 08:22] LABS: BUN Creatinine Ratio 17.6 (10-20); Calcium 9.1 mg/dl (8.5-10.1); Creatinine Clr Calc Pharmacy 68.7 ml/min; Est GFR (African American) 102.4 ml/min; Est GFR (Non-African American) 88.3 ml/min; Magnesium 1.8 mg/dl (1.7-2.4); Potassium 4.5 mmol/L (3.5-5.1)
[2021-08-24 08:24] LABS: Troponin I 0.27 ng/ml (0-0.04)
[2021-08-24] MEDS: ENOXAPARIN INJ 30 MG/0.3 ML SYR SQ SCH (08:41)
[2021-08-24] MEDS: ROFLUMILAST 500 MCG TAB PO SCH (08:42)
[2021-08-24] MEDS: predniSONE 1 MG TAB PO SCH (08:42)
[2021-08-24] MEDS: THIAMINE HCL 100 MG TAB PO SCH (08:42)
[2021-08-24] MEDS: FOLIC ACID 1 MG TAB PO SCH (08:42)
[2021-08-24] MEDS ORDERED: FLUTICASONE/VILANTEROL 100/25MCG 14 PUFFS/INHALER INH SCH (09:00)
[2021-08-24 09:22] LABS: Hematocrit (blood only) 36.3 % (42-52); Mean Corpuscular Hemoglobin 31.7 pg (25-34); Mean Corpuscular Hgb Conc 33.1 g/dL (32-36); Mean Corpuscular Volume 95.8 fL (80-100); Mean Platelet Volume 9.8 fL (7.4-10.4); Platelet Count 224 K/uL (130-400); RDW Coefficient of Variation 14.2 % (11.5-14.5); RDW Standard Deviation 50.3 fL (36.4-46.3); Red Blood Count 3.79 M/uL (4.7-6.1); White Blood Count 3.96 K/uL (4.8-10.8)
--- NOTE | 2021-08-24 10:27 | Electrocardiogram Report ---
Test Reason : Blood Pressure : / mmHG Vent. Rate : 089 BPM Atrial Rate : 089 BPM P-R Int : 152 ms QRS Dur : 080 ms QT Int : 394 ms P-R-T Axes : 083 087 072 degrees QTc Int : 479 ms Poor data quality, interpretation may be adversely affected Sinus rhythm with frequent Premature ventricular complexes Otherwise normal ECG When compared with ECG of 23-AUG-2021 13:52, (unconfirmed) Premature ventricular complexes are now Present Aberrant conduction is no longer Present Confirmed by Zac Conteh ([id number]) on 08/24/2021 10:27:27 AM Referred By: REFERRED SELF Confirmed By:Sarmad Conteh
--- NOTE | 2021-08-24 10:34 | Electrocardiogram Report ---
Test Reason : Blood Pressure : / mmHG Vent. Rate : 090 BPM Atrial Rate : 090 BPM P-R Int : 144 ms QRS Dur : 074 ms QT Int : 356 ms P-R-T Axes : 080 090 075 degrees QTc Int : 435 ms Poor data quality, interpretation may be adversely affected Sinus rhythm with Premature atrial complexes with Aberrant conduction Rightward axis Borderline ECG When compared with ECG of 27-DEC-2017 11:34, No significant change was found Confirmed by Zac Conteh ([id number] on 08/24/2021 10:34:21 AM Referred By: REFERRED SELF Confirmed By:Sarmad Conteh
--- NOTE | 2021-08-24 12:41 | Cardiology Consultation ---
Date of Consultation August 24, 2021 Assessment & Plan (1) Acute and chronic respiratory failure: (2) COPD exacerbation: (3) Elevated troponin I level: Patient with mild, flat troponin I elevation , similar to levels noted on prior admissions in 2017 and 2018 when admitted for exacerbation of lung disease. Chest symptoms , felt to be atypical in character for angina. Patient very debilitated at baseline. States "I can't walk 5 feet" due to chronic shortness of breath. Continue to monitor. Given sinus tachycardia will add low dose beta clemente and watch for development of worsening wheezing. Continue current treatment with Azithromycin, corticosteroids, inhaled bronchodilators. Lovenox for DVT prophylaxis. No further cardiac testing felt to be indicted at present. History of Present Illness Attending Physician: Roberto Gaspar MD History of Present Illness Jer Abreu is a 80 year old male seen in cardiology consultation per the request of Dr Gaspar for the evaluation of chest discomfort, shortness of breath, and mild elevation in Troponin I. Pt has a longstanding history of severe oxygen dependent COPD. He is typically on supplemental oxygen at 2.5 l/m , but due to recent worsening shortness of breath he increased this to 6 l/m recently , then noted worsening productive cough and presented via the ED yesterday. A few weeks ago he started noting intermittent chest discomfort with deep inspiration. SOB and chest pain both improved at present. He denies a personal history of heart disease. Denies family history of heart disease. Allergies Allergy/AdvReac Type Severity Reaction Status Date / Time No Known Allergies Allergy Verified 08/23/21 14:45 Home Medications Medication Instructions Recorded Confirmed Type albuterol sulfate 90 mcg/actuation 2 puffs INH Q4H PRN ea 04/11/19 08/23/21 History breath activated powder inhaler (ProAir RespiClick) folic acid 1 mg tablet 1 mg PO QAM tab 04/11/19 08/23/21 History ipratropium 0.5 mg-albuterol 3 mg 3 ml INH QID PRN ml 04/11/19 08/23/21 History (2.5 mg base)/3 mL nebulization soln roflumilast 500 mcg tablet 500 mcg PO QAM 04/11/19 08/23/21 History (Daliresp) thiamine HCl (vitamin B1) 100 mg 100 mg PO QAM 04/11/19 08/23/21 History tablet cyanocobalamin (vitamin B-12) 100 100 mcg PO DAILY 08/23/21 08/23/21 History mcg tablet fluticasone 250 mcg-salmeterol 50 1 inh INHALATION BID 08/23/21 08/23/21 History mcg/dose blistr powdr for inhalation (Advair Diskus) prednisone 1 mg tablet 1 mg PO QAM 08/23/21 08/23/21 History Patient History Medical History Alcohol abuse Chronic obstructive pulmonary disease Chronic respiratory failure Fibrosis of lung GERD with esophagitis History of tobacco use On home oxygen therapy WEARS O2 AT 2L CONT. Oxygen dependent Pulmonary hypertension Surgical History History of right cataract surgery History of tooth extraction Family History Mother Diverticulitis Father COPD (chronic obstructive pulmonary disease) Dad was a smoker Social History Smoking Status: Former smoker Tobacco Type: E-cigarettes / Vaping Second Hand Exposure: Yes; Tobacco Cessation Education Requested by Patient: No Hx Alcohol Use: Yes (2 beers, 1 rum and coke) Alcohol type: beer and hard liquor Hx Substance Use: No Preferred Language: Sinhala Communication Ability: Effective Chemist Assistant Required: No Beliefs That Will Affect Care: None Current Living Situation: Spouse Other Information That Helps Us Care for You: No Feels Safe at Home: Yes Assistive Devices: Oxygen - Continuous Review of Systems Review of Systems: All systems reviewed & are unremarkable except as noted in HPI & below Physical Exam Physical Exam: Temp Pulse Resp BP Pulse Ox 36.8 C 88 24 110/61 95 08/24/21 11:45 08/24/21 11:45 08/24/21 11:16 08/24/21 11:45 08/24/21 11:45 Constitutional: + ill appearing (chronically ill in appearance) and + thin; no acute distress Respiratory: No rales, rhonchi , or wheezing Cardiovascular: RRR, no murmur, no edema Gastrointestinal (Abdomen): normal bowel sounds, soft, nontender, no hepatosplenomegaly Neurologic: PERRL, EOMI, accommodation nl, no face palsy, no dysarthria Results & Data ([facility]) Vital Signs (Past 12 Hours) Vital Signs Temp Pulse Pulse Resp BP Pulse Ox 08/24/21 11:45 36.8 C 88 110/61 95 08/24/21 11:16 86 24 95 08/24/21 07:25 36.5 C 77 19 88/64 L 97 08/24/21 07:00 87 08/24/21 06:31 76 18 95 08/24/21 02:42 36.5 C 70 18 113/66 98 Laboratory Results Cardiac Enzymes 08/23/21 08/23/21 08/24/21 Range/Units 14:00 22:59 06:56 AST 21 (13-39) U/L Troponin I 0.27 H* 0.44 H* 0.27 H* (0-0.04) ng/ml Coagulation 08/23/21 Range/Units 14:00 PT 11.4 (9.0-12.0) Seconds APTT 24.4 (21.0-31.0) Seconds CBC 08/23/21 08/24/21 Range/Units 14:00 06:56 WBC 9.55 3.96 L D (4.8-10.8) K/uL RBC 3.93 L 3.79 L (4.7-6.1) M/uL Hgb 12.7 L 12.0 L (14.0-18.0) g/dL Hct 37.9 L 36.3 L (42-52) % Plt Count 208 224 (130-400) K/uL Neut # (Auto) 6.24 (1.4-6.5) K/uL Lymph # (Auto) 1.94 (1.2-3.4) K/uL [place] # (Auto) 0.46 (0.11-0.59) K/uL Eos # (Auto) 0.86 H (0-0.5) K/uL Baso # (Auto) 0.04 (0-0.2) K/uL Comprehensive Metabolic Panel 08/23/21 08/24/21 Range/Units 14:00 06:56 Sodium 138 138 (136-145) mmol/L Potassium 3.9 4.5 (3.5-5.1) mmol/L Chloride 99 103 (98-107) mmol/L Carbon Dioxide 29 28 (21-32) mmol/L BUN 7 13 (6-23) mg/dl Creatinine 0.73 0.74 (0.6-1.4) mg/dl Glucose 107 H 143 H (70-99(Fasting)) mg/dl Calcium 9.5 9.1 (8.5-10.1) mg/dl AST 21 (13-39) U/L ALT 9 (7-52) U/L Alkaline Phosphatase 90 (34-104) U/L Total Protein 6.6 (6.0-8.3) gm/dl Albumin 3.7 (3.4-5.0) gm/dl Diagnostic Findings EKG performed 08/23/21 and reviewed independently: SR at 89 bpm with frequent PACs. No significant repolarization abnormalities. Telemetry: SR and sinus tachycardia, rates 90-119 bpm. ttecho performed today and reviewed independently: No LV regional wall motion abnormalities. Hyperdynamic LVE function, LVEF > 70% Mild RV dilatation, RVEF hyperdynamic AV sclerosis without stenosis
[2021-08-24] MEDS: METOPROLOL TARTRATE 25 MG TAB PO SCH ×2 (13:49→20:20)
--- NOTE | 2021-08-24 17:40 | Hospitalist Progress Note ---
Date of Service August 24, 2021 Assessment & Plan (1) COPD exacerbation: (2) Acute and chronic respiratory failure: (3) Elevated troponin I level: (4) Hypomagnesemia: (5) Alcohol abuse: Plan: 80 year old male with COPD on chronic oxygen and inhalers presented to the emergency with generalized weakness, shortness of breath COPD exacerbation- continue iv steroid and zithromax. will change inhalers to nebs. mucinex. flutter valve. Chronic hypoxic respiratory failure- on chronic oxygen at baseline Elevated troponin- likely demand ischemia from above. Trop mildly elevated but already downtrending. Echo reviewed, no significant finding. Cardio did not recommend any further testing Alcohol abuse- on gabapentin and prn ativan, CIWA protocol. Watch out for withdrawal. Recommended abstinence. Sinus tachy- started on lopressor by cardio- watch out for worsening wheezing, if so will discontinue DVT ppx- sc lovenox dispo- pending symptomatic improvement, will need PT/OT and likely rehab Admission and Anticipated Discharge Date Admission Date: August 23, 2021 Subjective Feels about the same. Continues with shortness of breath with sputum expectoration with chest tightness. No fever or chills. No nausea, vomiting. On chronic oxygen Physical Exam Physical Exam: General: chronically ill looking, sitting in bed, not in distress, on NC HEENT: EOMI, BRIAN, MMM Chest: Fair with bilateral wheezes on expiration CVS: Regular rate and rhythm, normal heart sounds, no murmur Abdomen: Soft, non tender, not distended, normal bowel sounds Neuro: Awake, alert, oriented, conversing well, non focal Extremities: No cyanosis, clubbing or edema Results & Data Results & Data ([facility]) Vital Signs (Past 12 Hours) Vital Signs Temp Pulse Pulse Resp BP Pulse Ox 08/24/21 15:35 89 08/24/21 15:20 82 26 H 93 08/24/21 15:09 36.5 C 85 18 118/61 93 08/24/21 11:45 36.8 C 88 110/61 95 08/24/21 11:16 86 24 95 08/24/21 07:25 36.5 C 77 19 88/64 L 97 08/24/21 07:00 87 08/24/21 06:31 76 18 95 Laboratory Results Short CBC 08/24/21 Range/Units 06:56 WBC 3.96 L D (4.8-10.8) K/uL Hgb 12.0 L (14.0-18.0) g/dL Hct 36.3 L (42-52) % Plt Count 224 (130-400) K/uL BMP 08/24/21 06:56 Sodium 138 Potassium 4.5 Chloride 103 Carbon Dioxide 28 BUN 13 Creatinine 0.74 Glucose 143 H Calcium 9.1 Cardiac Enzymes 08/23/21 08/24/21 Range/Units 22:59 06:56 Troponin I 0.44 H* 0.27 H* (0-0.04) ng/ml Urine 08/23/21 Range/Units 17:50 Urine Color Yellow Urine Appearance Clear (Clear) Urine pH 5.0 (4.5-7.5) Ur Specific [place] 1.012 (1.000-1.030) Urine Protein Negative (Negative) Urine Glucose (UA) Negative (Negative) Medications Administered Current Inpatient Medications Acetaminophen (Acetaminophen 325 Mg Tab) 650 mg PO Q4H PRN PRN Reason: Pain or Fever Stop: 09/22/21 18:12 Albuterol (Albut/Ipratrop 3mg/0.5mg Neb 3 Ml Vial) 3 ml INH QIDR [facility]; Protocol Stop: 09/23/21 06:59 Last Admin: 08/24/21 15:17 Dose: 3 ml Documented by: Albuterol (Albut/Ipratrop 3mg/0.5mg Neb 3 Ml Vial) 3 ml NEB QIDR [facility]; Protocol Stop: 09/23/21 18:59 Azithromycin (Azithromycin 250 Mg Tab) 500 mg PO Q24H [facility] Stop: 08/26/21 18:59 Last Admin: 08/23/21 20:15 Dose: 500 mg Documented by: Budesonide (Budesonide 0.5 Mg/2 Ml Vial (Pulmicort)) 0.5 mg NEB BIDR [facility] Stop: 09/23/21 18:59 Enoxaparin Sodium (Enoxaparin Inj 30 Mg/0.3 Ml Syr) 30 mg SQ QAM [facility] Stop: 09/23/21 08:59 Last Admin: 08/24/21 08:41 Dose: 30 mg Documented by: Fluticasone/Vilanterol (Fluticasone/Vilanterol 100/25mcg 14 Puffs/Inhaler) 1 puffs INH DAILY [facility]; Protocol Stop: 09/23/21 08:59 Last Admin: 08/24/21 08:42 Dose: 1 puffs Documented by: Folic Acid (Folic Acid 1 Mg Tab) 1 mg PO QAM [facility] Stop: 09/23/21 08:59 Last Admin: 08/24/21 08:42 Dose: 1 mg Documented by: Formoterol Fumarate (Formoterol 20 Mcg/2 Ml Vial) 20 mcg NEB BID [facility] Stop: 09/23/21 20:59 Gabapentin (Gabapentin 600 Mg Tab) 600 mg PO Q8H [facility] Stop: 08/25/21 14:01 Gabapentin (Gabapentin 600 Mg Tab) 600 mg PO Q12H [facility] Stop: 08/26/21 12:01 Gabapentin (Gabapentin 600 Mg Tab) 600 mg PO Q24H [facility] Stop: 08/27/21 12:01 Guaifenesin (Guaifenesin 600 Mg Tabcr) 600 mg PO Q12 [facility] Stop: 09/23/21 20:59 Methylprednisolone 40 mg/ (Syringe) 0.64 mls @ 1.5 mls/min IV Q8 [facility] Stop: 09/22/21 19:29 Last Admin: 08/24/21 13:49 Dose: 1.5 mls/min Documented by: Lorazepam (Lorazepam 1 Mg Tab) 1 mg PO ONE PRN; Protocol PRN Reason: EtoH Withdrawal AWSS 6-10 Metoprolol Tartrate (Metoprolol Tartrate 25 Mg Tab) 12.5 mg PO BID [facility] Stop: 09/23/21 12:59 Last Admin: 08/24/21 13:49 Dose: 12.5 mg Documented by: Polyethylene Glycol (Polyethylene (Miralax) 17 Gm Pack) 17 gm PO DAILY PRN PRN Reason: Constipation Stop: 09/22/21 18:12 Prednisone (Prednisone 1 Mg Tab) 1 mg PO QAM [facility] Stop: 09/23/21 08:59 Last Admin: 08/24/21 08:42 Dose: 1 mg Documented by: Roflumilast (Roflumilast 500 Mcg Tab) 500 mcg PO QAM [facility] Stop: 09/23/21 08:59 Last Admin: 08/24/21 08:42 Dose: 500 mcg Documented by: Thiamine HCl (Thiamine Hcl 100 Mg Tab) 100 mg PO QAM [facility] Stop: 09/23/21 08:59 Last Admin: 08/24/21 08:42 Dose: 100 mg Documented by:
[2021-08-24] MEDS: ALBUT/IPRATROP 3MG/0.5MG NEB 3 ML VIAL NEB SCH (19:20)
[2021-08-24] MEDS: FORMOTEROL 20 MCG/2 ML VIAL NEB SCH (19:34)
[2021-08-24] MEDS: BUDESONIDE 0.5 MG/2 ML VIAL (PULMICORT) NEB SCH (19:34)
[2021-08-24] MEDS: guaiFENesin 600 MG TABCR PO SCH (20:21)
[2021-08-24] MEDS: AZITHROMYCIN 250 MG TAB PO SCH (20:21)
[2021-08-25] MEDS: methylPREDNISolone 40 MG in SYRINGE 0 ML IV SCH ×3 (05:51→21:25)
[2021-08-25] MEDS: GABAPENTIN 600 MG TAB PO SCH ×3 (05:51→23:15)
[2021-08-25] MEDS: FORMOTEROL 20 MCG/2 ML VIAL NEB SCH ×2 (07:09→19:32)
[2021-08-25] MEDS: BUDESONIDE 0.5 MG/2 ML VIAL (PULMICORT) NEB SCH ×2 (07:09→19:30)
[2021-08-25] MEDS: ALBUT/IPRATROP 3MG/0.5MG NEB 3 ML VIAL NEB SCH ×4 (07:09→19:31)
[2021-08-25] MEDS: ENOXAPARIN INJ 30 MG/0.3 ML SYR SQ SCH (08:34)
[2021-08-25] MEDS: THIAMINE HCL 100 MG TAB PO SCH (08:35)
[2021-08-25] MEDS: predniSONE 1 MG TAB PO SCH (08:35)
[2021-08-25] MEDS: ROFLUMILAST 500 MCG TAB PO SCH (08:35)
[2021-08-25] MEDS: FOLIC ACID 1 MG TAB PO SCH (08:35)
[2021-08-25] MEDS: METOPROLOL TARTRATE 25 MG TAB PO SCH ×2 (08:35→20:10)
[2021-08-25] MEDS: guaiFENesin 600 MG TABCR PO SCH ×2 (08:35→20:11)
--- NOTE | 2021-08-25 15:31 | Hospitalist Progress Note ---
Date of Service August 25, 2021 Assessment & Plan (1) COPD exacerbation: (2) Acute and chronic respiratory failure: (3) Elevated troponin I level: (4) Hypomagnesemia: (5) Alcohol abuse: Plan: 80 year old male with COPD on chronic oxygen and inhalers presented to the emergency with generalized weakness, shortness of breath COPD exacerbation- continue iv steroid and zithromax. Continue nebs, flutter valve, mucinex. Likely change iv steroid to prednisone tomorrow. Chronic hypoxic respiratory failure- on chronic oxygen at baseline Elevated troponin- likely demand ischemia from above. Trop mildly elevated but already downtrending. Echo reviewed, no significant finding. Cardio did not recommend any further testing Alcohol abuse- on gabapentin and prn ativan, CIWA protocol. Watch out for withdrawal. Recommended abstinence. Sinus tachy- started on lopressor by cardio- watch out for worsening wheezing, if so will discontinue DVT ppx- sc lovenox dispo- anticipate will be stable in 1-2 days. Seen by PT/OT - recommended OT. Admission and Anticipated Discharge Date Admission Date: August 23, 2021 Subjective feeling better. He was surprised he did better than expected with therapy evaluation. Expectoration decreased today. No fever or chills. Physical Exam Physical Exam: General: chronically ill looking, sitting in bed, not in distress, on NC HEENT: EOMI, BRIAN, MMM Chest: Fair with mild bilateral wheezes on expiration CVS: Regular rate and rhythm, normal heart sounds, no murmur Abdomen: Soft, non tender, not distended, normal bowel sounds Neuro: Awake, alert, oriented, conversing well, non focal Extremities: No cyanosis, clubbing or edema Results & Data Results & Data ([facility]) Vital Signs (Past 12 Hours) Vital Signs Temp Pulse Pulse Resp BP BP Pulse Ox 08/25/21 15:21 92 H 08/25/21 15:20 94 H 20 94 08/25/21 15:00 36.5 C 87 15 127/63 96 08/25/21 14:44 08/25/21 12:48 92 08/25/21 10:44 36.6 C 85 20 124/69 98 08/25/21 10:34 95 H 18 95 08/25/21 07:46 90 08/25/21 07:45 36.5 C 99 H 20 129/61 91 08/25/21 07:38 20 Pulse Ox Pulse Ox Pulse Ox 08/25/21 15:21 08/25/21 15:20 08/25/21 15:00 08/25/21 14:44 91 94 85 L 08/25/21 12:48 08/25/21 10:44 08/25/21 10:34 08/25/21 07:46 08/25/21 07:45 08/25/21 07:38
[2021-08-25] MEDS: AZITHROMYCIN 250 MG TAB PO SCH (19:47)
[2021-08-26 06:29] LABS: Creatinine Clr Calc Pharmacy 61.1 ml/min; Est GFR (African American) 99.7 ml/min
[2021-08-26] MEDS: FORMOTEROL 20 MCG/2 ML VIAL NEB SCH ×2 (07:01→19:34)
[2021-08-26] MEDS: ALBUT/IPRATROP 3MG/0.5MG NEB 3 ML VIAL NEB SCH ×4 (07:01→19:34)
[2021-08-26] MEDS: BUDESONIDE 0.5 MG/2 ML VIAL (PULMICORT) NEB SCH ×2 (07:01→19:33)
[2021-08-26] MEDS: ENOXAPARIN INJ 30 MG/0.3 ML SYR SQ SCH (08:33)
[2021-08-26] MEDS: METOPROLOL TARTRATE 25 MG TAB PO SCH ×2 (08:34→20:06)
[2021-08-26] MEDS: FOLIC ACID 1 MG TAB PO SCH (08:34)
[2021-08-26] MEDS: guaiFENesin 600 MG TABCR PO SCH ×2 (08:34→20:06)
[2021-08-26] MEDS: THIAMINE HCL 100 MG TAB PO SCH (08:35)
[2021-08-26] MEDS: ROFLUMILAST 500 MCG TAB PO SCH (08:35)
[2021-08-26] MEDS: predniSONE 20 MG TAB PO SCH (08:35)
[2021-08-26] MEDS: GABAPENTIN 600 MG TAB PO SCH (12:13)
--- NOTE | 2021-08-26 14:22 | Hospitalist Progress Note ---
Date of Service August 26, 2021 Assessment & Plan (1) COPD exacerbation: (2) Acute and chronic respiratory failure: (3) Elevated troponin I level: (4) Hypomagnesemia: (5) Alcohol abuse: Plan: 80 year old male with COPD on chronic oxygen and inhalers presented to the emergency with generalized weakness, shortness of breath and admitted for COPD exacerbation/ Acute exacerbation of COPD- improving and iv solumedrol changed to prednisone today. sputum clx now showing probable pseudomonas, hence azithromycin changed to levaquin today. Check EKG in am for QTc. Check renal function for adjustment of levaquin dose. Monitor final sputum cultures for antibiotic managment. Continue nebs, flutter valve, mucinex. Chronic hypoxic respiratory failure- on chronic oxygen at baseline Elevated troponin- likely demand ischemia from above. Trop mildly elevated but already downtrending. Echo reviewed, no significant finding. Cardio did not recommend any further testing Alcohol abuse- on gabapentin and prn ativan, CIWA protocol. Watch out for withdrawal. Recommended abstinence. Sinus tachy- started on lopressor by cardio- watch out for worsening wheezing, if so will discontinue DVT ppx- sc lovenox dispo- pending final sputum culture and symtomatic improvement, will need home therapy at discharge. Anticipate discharge in 1-2 days. Admission and Anticipated Discharge Date Admission Date: August 23, 2021 Subjective States his breathing is improved but still feels weak and would like to get more therapy. He does not feel ready to go home yet today. Still with productive cough, greenish. No fever or chills. No other issues. Physical Exam Physical Exam: General: chronically ill looking, sitting in bed, not in distress, on NC HEENT: EOMI, BRIAN, MMM Chest: Fair with mild bilateral wheezes on expiration CVS: Regular rate and rhythm, normal heart sounds, no murmur Abdomen: Soft, non tender, not distended, normal bowel sounds Neuro: Awake, alert, oriented, conversing well, non focal Extremities: No cyanosis, clubbing or edema Results & Data Results & Data ([facility]) Vital Signs (Past 12 Hours) Vital Signs Temp Pulse Pulse Resp BP BP Pulse Ox 08/26/21 11:40 36.5 C 87 18 126/66 97 08/26/21 11:16 74 18 94 08/26/21 08:14 36.7 C 100 H 18 151/80 H 94 08/26/21 07:19 79 08/26/21 07:03 77 18 93 08/26/21 04:18 36.6 C 84 18 137/66 96 Laboratory Results BMP 08/26/21 05:23 Creatinine 0.79 Medications Administered Current Inpatient Medications Acetaminophen (Acetaminophen 325 Mg Tab) 650 mg PO Q4H PRN PRN Reason: Pain or Fever Stop: 09/22/21 18:12 Albuterol (Albut/Ipratrop 3mg/0.5mg Neb 3 Ml Vial) 3 ml INH QIDR [facility]; Protocol Stop: 09/23/21 06:59 Last Admin: 08/24/21 15:17 Dose: 3 ml Documented by: Albuterol (Albut/Ipratrop 3mg/0.5mg Neb 3 Ml Vial) 3 ml NEB QIDR [facility]; Protocol Stop: 09/23/21 18:59 Last Admin: 08/26/21 11:15 Dose: 3 ml Documented by: Budesonide (Budesonide 0.5 Mg/2 Ml Vial (Pulmicort)) 0.5 mg NEB BIDR [facility] Stop: 09/23/21 18:59 Last Admin: 08/26/21 07:01 Dose: 0.5 mg Documented by: Enoxaparin Sodium (Enoxaparin Inj 30 Mg/0.3 Ml Syr) 30 mg SQ QAM [facility] Stop: 09/23/21 08:59 Last Admin: 08/26/21 08:33 Dose: 30 mg Documented by: Fluticasone/Vilanterol (Fluticasone/Vilanterol 100/25mcg 14 Puffs/Inhaler) 1 puffs INH DAILY [facility]; Protocol Stop: 09/23/21 08:59 Last Admin: 08/24/21 08:42 Dose: 1 puffs Documented by: Folic Acid (Folic Acid 1 Mg Tab) 1 mg PO QAM [facility] Stop: 09/23/21 08:59 Last Admin: 08/26/21 08:34 Dose: 1 mg Documented by: Formoterol Fumarate (Formoterol 20 Mcg/2 Ml Vial) 20 mcg NEB BIDR [facility] Stop: 09/23/21 18:59 Last Admin: 08/26/21 07:01 Dose: 20 mcg Documented by: Gabapentin (Gabapentin 600 Mg Tab) 600 mg PO Q24H [facility] Stop: 08/27/21 12:01 Guaifenesin (Guaifenesin 600 Mg Tabcr) 600 mg PO Q12 [facility] Stop: 09/23/21 20:59 Last Admin: 08/26/21 08:34 Dose: 600 mg Documented by: Levofloxacin (Levofloxacin 750 Mg Tab) 750 mg PO Q24H [facility] Stop: 09/02/21 14:29 Lorazepam (Lorazepam 1 Mg Tab) 1 mg PO ONE PRN; Protocol PRN Reason: EtoH Withdrawal AWSS 6-10 Metoprolol Tartrate (Metoprolol Tartrate 25 Mg Tab) 12.5 mg PO BID [facility] Stop: 09/23/21 12:59 Last Admin: 08/26/21 08:34 Dose: 12.5 mg Documented by: Polyethylene Glycol (Polyethylene (Miralax) 17 Gm Pack) 17 gm PO DAILY PRN PRN Reason: Constipation Stop: 09/22/21 18:12 Prednisone (Pred[facility]one 1 Mg Tab) [facility] [place] Stop: 09/23/21 08:59 Last Admin: 08/25/21 08:35 Dose: 1 mg Documented by: Prednisone (Prednisone 20 Mg Tab) 40 mg PO QAM [facility] Stop: 09/25/21 08:59 Last Admin: 08/26/21 08:35 Dose: 40 mg Documented by: Roflumilast (Roflumilast 500 Mcg Tab) 500 mcg PO QAM [facility] Stop: 09/23/21 08:59 Last Admin: 08/26/21 08:35 Dose: 500 mcg Documented by: Thiamine HCl (Thiamine Hcl 100 Mg Tab) [facility] [place] Stop: 09/23/21 08:59 Last Admin: 08/26/21 08:35 Dose: 100 mg Documented by:
[2021-08-26] MEDS: levoFLOXacin 750 MG TAB PO SCH (15:00)
[2021-08-26] MEDS ORDERED: COUGH DROP (SUGAR FREE) LOZ 24 LOZ/1 BOX BUCCAL ONE (23:55)
[2021-08-27] MEDS: ALBUT/IPRATROP 3MG/0.5MG NEB 3 ML VIAL NEB SCH ×4 (07:23→19:05)
[2021-08-27] MEDS: BUDESONIDE 0.5 MG/2 ML VIAL (PULMICORT) NEB SCH ×2 (07:23→19:05)
[2021-08-27] MEDS: FORMOTEROL 20 MCG/2 ML VIAL NEB SCH ×2 (07:24→19:05)
[2021-08-27 07:28] LABS: BUN Creatinine Ratio 43.8 (10-20); Calcium 8.7 mg/dl (8.5-10.1); Creatinine Clr Calc Pharmacy 61.8 ml/min; Est GFR (African American) 99.2 ml/min; Est GFR (Non-African American) 85.6 ml/min; Magnesium 1.8 mg/dl (1.7-2.4); Phosphorus 2.7 mg/dl (2.5-4.9); Potassium 3.6 mmol/L (3.5-5.1)
[2021-08-27] MEDS: METOPROLOL TARTRATE 25 MG TAB PO SCH ×2 (08:42→20:14)
[2021-08-27] MEDS: guaiFENesin 600 MG TABCR PO SCH ×2 (08:43→20:14)
[2021-08-27] MEDS: ENOXAPARIN INJ 30 MG/0.3 ML SYR SQ SCH (08:44)
[2021-08-27] MEDS: predniSONE 20 MG TAB PO SCH (08:44)
[2021-08-27] MEDS: THIAMINE HCL 100 MG TAB PO SCH (08:45)
[2021-08-27] MEDS: FOLIC ACID 1 MG TAB PO SCH (08:46)
[2021-08-27] MEDS: ROFLUMILAST 500 MCG TAB PO SCH (08:46)
[2021-08-27] MEDS ORDERED: GABAPENTIN 600 MG TAB PO SCH (12:00)
--- NOTE | 2021-08-27 13:35 | Electrocardiogram Report ---
Test Reason : Blood Pressure : / mmHG Vent. Rate : 072 BPM Atrial Rate : 072 BPM P-R Int : 132 ms QRS Dur : 082 ms QT Int : 384 ms P-R-T Axes : 082 092 061 degrees QTc Int : 420 ms Sinus rhythm with Premature atrial complexes with Aberrant conduction Rightward axis Abnormal ECG When compared with ECG of 23-AUG-2021 18:26, Premature ventricular complexes are no longer Present Aberrant conduction is now Present QT has shortened Confirmed by Zac Conteh ([id number]) on 08/27/2021 1:35:30 PM Referred By: REFERRED SELF Confirmed By:Sarmad Conteh
[2021-08-27] MEDS: levoFLOXacin 750 MG TAB PO SCH (14:38)
--- NOTE | 2021-08-27 23:45 | Hospitalist Progress Note ---
Date of Service August 27, 2021 Assessment & Plan (1) COPD exacerbation: (2) Acute and chronic respiratory failure: (3) Elevated troponin I level: (4) Hypomagnesemia: (5) Alcohol abuse: Plan: 80 year old male with COPD on chronic oxygen and inhalers presented to the emergency with generalized weakness, shortness of breath and admitted for COPD exacerbation/ Acute exacerbation of COPD Chronic hypoxic respiratory failure CXR showed no acute pulmonary finding. Sputum culture grew Pseudomonas Azithromycin changed to Levaquin Continue Levaquin 750 daily, check EKG to monitor QTC while on Levaquin Continue neb treatment, flutter valve and Mucinex Continue oxygen supplement Continue monitor closely Elevated troponin- likely demand ischemia from above. Trop mildly elevated but already downtrending. EKG showed no ischemic changes Echo reviewed, no significant finding. Continue metoprolol Cardio on board did not recommend any further testing Alcohol abuse on gabapentin and prn ativan, CIWA protocol. Continue monitor for sign of alcohol withdrawal. Counseling on alcohol cessation Sinus tachy- Continue lopressor by cardio- watch out for worsening wheezing, if so will discontinue DVT ppx- sc lovenox dispo- Possible discharge in a.m. Admission and Anticipated Discharge Date Admission Date: August 23, 2021 Subjective Patient was seen and examined for follow-up of shortness of breath and productive cough Lying in bed with no acute distress Patient said he continues to to have productive cough He said his breathing is slightly better compared to when he came Denies any chest pain, palpitation, and fever. Review of Systems Review of Systems: All systems reviewed & are unremarkable except as noted in Subjective Physical Exam Physical Exam: General- No acute distress Head- atraumatic Eyes- PERRL, EOMI, ENT- oropharynx clear Neck- supple, no JVD Lungs- +mild wheezing Heart- regular rhythm; no murmur Abdomen- normal bowel sounds, soft, nontender Extremities- no calf tenderness Neuro- alert, oriented x 3; PERRL, EOMI; no facial palsy; no dysarthria Skin- warm & dry Results & Data Results & Data ([facility]) Vital Signs (Past 12 Hours) Vital Signs Temp Pulse Resp BP Pulse Ox 08/27/21 23:05 36.5 C 78 18 130/69 99 08/27/21 19:15 36.5 C 86 18 143/69 H 96 08/27/21 19:07 83 18 95 03/23/22 15:24 36.7 C 81 20 118/67 98 08/27/21 14:52 87 22 99
[2021-08-28 06:51] LABS: BUN Creatinine Ratio 51.6 (10-20); Calcium 8.5 mg/dl (8.5-10.1); Creatinine Clr Calc Pharmacy 79.3 ml/min; Est GFR (African American) 110.1 ml/min; Potassium 3.5 mmol/L (3.5-5.1)
[2021-08-28] MEDS: FORMOTEROL 20 MCG/2 ML VIAL NEB SCH ×2 (07:02→19:16)
[2021-08-28] MEDS: BUDESONIDE 0.5 MG/2 ML VIAL (PULMICORT) NEB SCH ×2 (07:07→19:16)
[2021-08-28] MEDS: ALBUT/IPRATROP 3MG/0.5MG NEB 3 ML VIAL NEB SCH ×4 (07:08→19:56)
[2021-08-28] MEDS: ENOXAPARIN INJ 30 MG/0.3 ML SYR SQ SCH (08:17)
[2021-08-28] MEDS: guaiFENesin 600 MG TABCR PO SCH ×2 (08:17→20:43)
[2021-08-28] MEDS: predniSONE 20 MG TAB PO SCH (08:18)
[2021-08-28] MEDS: METOPROLOL TARTRATE 25 MG TAB PO SCH ×2 (08:18→20:43)
[2021-08-28] MEDS: ROFLUMILAST 500 MCG TAB PO SCH (08:19)
[2021-08-28] MEDS: THIAMINE HCL 100 MG TAB PO SCH (08:19)
[2021-08-28] MEDS: FOLIC ACID 1 MG TAB PO SCH (08:20)
[2021-08-28] MEDS: levoFLOXacin 750 MG TAB PO SCH (16:25)
--- NOTE | 2021-08-28 23:43 | Hospitalist Progress Note ---
Date of Service August 28, 2021 Assessment & Plan (1) COPD exacerbation: (2) Acute and chronic respiratory failure: (3) Elevated troponin I level: (4) Hypomagnesemia: (5) Alcohol abuse: Plan: 80 year old male with COPD on chronic oxygen and inhalers presented to the emergency with generalized weakness, shortness of breath and admitted for COPD exacerbation/ Acute exacerbation of COPD Chronic hypoxic respiratory failure CXR showed no acute pulmonary finding. Sputum culture grew Pseudomonas Azithromycin changed to Levaquin Continue Levaquin 750 daily, check EKG to monitor QTC while on Levaquin Continue neb treatment, flutter valve and Mucinex Continue oxygen supplement Clinically improved Elevated troponin- likely demand ischemia from above. Trop mildly elevated but already downtrending. EKG showed no ischemic changes Echo reviewed, no significant finding. Continue metoprolol Cardio on board did not recommend any further testing Alcohol abuse on gabapentin and prn ativan, CIWA protocol. Continue monitor for sign of alcohol withdrawal. Counseling on alcohol cessation Sinus tachy- Continue lopressor by cardio- watch out for worsening wheezing, if so will discontinue DVT ppx- sc lovenox dispo- Possible discharge in a.m. Admission and Anticipated Discharge Date Admission Date: August 23, 2021 Subjective Patient was seen and examined for follow-up of shortness of breath and productive cough Lying in bed with no acute distress He said his breathing is slightly better compared to when he came Denies any chest pain, palpitation, and fever. Review of Systems Review of Systems: All systems reviewed & are unremarkable except as noted in Subjective Physical Exam Physical Exam: General- No acute distress Head- atraumatic Eyes- PERRL, EOMI, ENT- oropharynx clear Neck- supple, no JVD Lungs- +mild wheezing Heart- regular rhythm; no murmur Abdomen- normal bowel sounds, soft, nontender Extremities- no calf tenderness Neuro- alert, oriented x 3; PERRL, EOMI; no facial palsy; no dysarthria Skin- warm & dry Results & Data Results & Data ([facility]) Vital Signs (Past 12 Hours) Vital Signs Temp Pulse Pulse Resp BP Pulse Ox 08/28/21 22:48 36.6 C 72 20 164/76 H 100 08/28/21 19:56 77 15 87 L 08/28/21 19:06 36.8 C 81 20 150/72 H 100 08/28/21 16:12 36.5 C 75 21 149/72 H 96 08/28/21 15:10 71 22 96 08/28/21 15:00 81
[2021-08-29] MEDS: FORMOTEROL 20 MCG/2 ML VIAL NEB SCH ×2 (07:04→19:40)
[2021-08-29] MEDS: BUDESONIDE 0.5 MG/2 ML VIAL (PULMICORT) NEB SCH ×2 (07:04→19:40)
[2021-08-29] MEDS: ALBUT/IPRATROP 3MG/0.5MG NEB 3 ML VIAL NEB SCH ×4 (07:14→19:40)
[2021-08-29] MEDS: THIAMINE HCL 100 MG TAB PO SCH (08:39)
[2021-08-29] MEDS: guaiFENesin 600 MG TABCR PO SCH ×2 (08:39→19:59)
[2021-08-29] MEDS: METOPROLOL TARTRATE 25 MG TAB PO SCH ×2 (08:39→19:59)
[2021-08-29] MEDS: predniSONE 20 MG TAB PO SCH (08:40)
[2021-08-29] MEDS: ENOXAPARIN INJ 30 MG/0.3 ML SYR SQ SCH (08:40)
[2021-08-29] MEDS: ROFLUMILAST 500 MCG TAB PO SCH (08:40)
[2021-08-29] MEDS: FOLIC ACID 1 MG TAB PO SCH (08:40)
[2021-08-29] MEDS: levoFLOXacin 750 MG TAB PO SCH (13:57)
--- NOTE | 2021-08-29 17:12 | Hospitalist Progress Note ---
Date of Service August 29, 2021 Assessment & Plan (1) COPD exacerbation: (2) Acute and chronic respiratory failure: (3) Elevated troponin I level: (4) Hypomagnesemia: (5) Alcohol abuse: Plan: 80 year old male with COPD on chronic oxygen and inhalers presented to the emergency with generalized weakness, shortness of breath and admitted for COPD exacerbation/ Acute exacerbation of COPD Chronic hypoxic respiratory failure CXR showed no acute pulmonary finding. Sputum culture grew Pseudomonas Azithromycin changed to Levaquin Continue Levaquin 750 daily, check EKG to monitor QTC while on Levaquin Continue neb treatment, flutter valve and Mucinex Continue oxygen supplement Clinically improved Elevated troponin- likely demand ischemia from above. Trop mildly elevated but already downtrending. EKG showed no ischemic changes Echo reviewed, no significant finding. Continue metoprolol Cardio on board did not recommend any further testing Alcohol abuse on gabapentin and prn ativan, CIWA protocol. Continue monitor for sign of alcohol withdrawal. Counseling on alcohol cessation Diarrhea He described it as loose stool that seems to be chronic If diarrhea worsening and becomes watery, will send stool for Cdiff Sinus tachy- Continue lopressor by cardio- watch out for worsening wheezing, if so will discontinue DVT ppx- sc lovenox Disposition Possible discharge in a.m. Admission and Anticipated Discharge Date Admission Date: August 23, 2021 Subjective Patient was seen and examined for follow-up of shortness of breath and productive cough Lying in bed with no acute distress He continues to bring the phlegm out He said that he had some lose stool Denies any chest pain, palpitation, and fever. Review of Systems Review of Systems: All systems reviewed & are unremarkable except as noted in Subjective Physical Exam Physical Exam: General- No acute distress Head- atraumatic Eyes- PERRL, EOMI, ENT- oropharynx clear Neck- supple, no JVD Lungs- +faint upper airway wheezing Heart- regular rhythm; no murmur Abdomen- normal bowel sounds, soft, nontender Extremities- no calf tenderness Neuro- alert, oriented x 3; PERRL, EOMI; no facial palsy; no dysarthria Skin- warm & dry Results & Data Results & Data ([facility]) Vital Signs (Past 12 Hours) Vital Signs Temp Pulse Pulse Resp BP Pulse Ox 08/29/21 15:17 36.7 C 78 17 113/69 100 08/29/21 14:56 77 19 95 08/29/21 14:19 81 08/29/21 11:41 36.8 C 64 22 152/78 H 97 08/29/21 10:38 72 20 95 08/29/21 07:04 72 18 99 08/29/21 06:57 36.7 C 60 17 151/77 H 100 08/29/21 06:45 54 L
[2021-08-30 06:56] LABS: Calcium 8.2 mg/dl (8.5-10.1); Creatinine Clr Calc Pharmacy 60.7 ml/min; Est GFR (African American) 98.7 ml/min; Est GFR (Non-African American) 85.1 ml/min; Potassium 3.2 mmol/L (3.5-5.1)
[2021-08-30] MEDS: FORMOTEROL 20 MCG/2 ML VIAL NEB SCH (07:16)
[2021-08-30] MEDS: BUDESONIDE 0.5 MG/2 ML VIAL (PULMICORT) NEB SCH (07:16)
[2021-08-30] MEDS: ALBUT/IPRATROP 3MG/0.5MG NEB 3 ML VIAL NEB SCH ×3 (07:18→14:16)
[2021-08-30] MEDS: ENOXAPARIN INJ 30 MG/0.3 ML SYR SQ SCH (08:05)
[2021-08-30] MEDS: guaiFENesin 600 MG TABCR PO SCH (08:06)
[2021-08-30] MEDS: METOPROLOL TARTRATE 25 MG TAB PO SCH (08:06)
[2021-08-30] MEDS: FOLIC ACID 1 MG TAB PO SCH (08:06)
[2021-08-30] MEDS: ROFLUMILAST 500 MCG TAB PO SCH (08:07)
[2021-08-30] MEDS: predniSONE 20 MG TAB PO SCH (08:07)
[2021-08-30] MEDS: THIAMINE HCL 100 MG TAB PO SCH (08:08)
[2021-08-30] MEDS ORDERED: POTASSIUM CHLORIDE CRTAB 20 MEQ TABCR PO STA (09:04)
[2021-08-30] MEDS: levoFLOXacin 750 MG TAB PO SCH (14:09)
[2021-08-30] MEDS ORDERED: LOPERAMIDE HCL 2 MG CAP PO STA (14:45)
[2021-08-30] MEDS ORDERED: LOPERAMIDE HCL 2 MG CAP PO PRN (14:45)
--- NOTE | 2021-08-30 15:05 | Hospitalist Progress Note ---
Date of Service August 30, 2021 Assessment & Plan (1) COPD exacerbation: (2) Acute and chronic respiratory failure: (3) Elevated troponin I level: (4) Hypomagnesemia: (5) Alcohol abuse: Plan: 80 year old male with COPD on chronic oxygen and inhalers presented to the emergency with generalized weakness, shortness of breath and admitted for COPD exacerbation/ Acute exacerbation of COPD Chronic hypoxic respiratory failure CXR showed no acute pulmonary finding. Sputum culture grew Pseudomonas Azithromycin changed to Levaquin Continue Levaquin 750 daily, check EKG to monitor QTC while on Levaquin Continue neb treatment, flutter valve and Mucinex Continue oxygen supplement Clinically improved Elevated troponin- likely demand ischemia from above. Trop mildly elevated but already downtrending. EKG showed no ischemic changes Echo reviewed, no significant finding. Continue metoprolol Cardio on board did not recommend any further testing Alcohol abuse on gabapentin and prn ativan, CIWA protocol. Continue monitor for sign of alcohol withdrawal. Counseling on alcohol cessation Diarrhea He described it as loose stool that seems to be chronic If diarrhea worsening and becomes watery, will send stool for Cdiff Sinus tachy- Continue lopressor by cardio- watch out for worsening wheezing, if so will discontinue DVT ppx- sc lovenox Disposition Possible discharge in a.m. Admission and Anticipated Discharge Date Admission Date: August 23, 2021 Subjective Patient was seen and examined for follow-up of shortness of breath and productive cough Lying in bed with no acute distress He continues to bring the phlegm out He said that he had some lose stool Denies any chest pain, palpitation, and fever. Physical Exam Physical Exam: General- No acute distress Head- atraumatic Eyes- PERRL, EOMI, ENT- oropharynx clear Neck- supple, no JVD Lungs- +faint upper airway wheezing Heart- regular rhythm; no murmur Abdomen- normal bowel sounds, soft, nontender Extremities- no calf tenderness Neuro- alert, oriented x 3; PERRL, EOMI; no facial palsy; no dysarthria Skin- warm & dry Results & Data Results & Data ([facility]) Vital Signs (Past 12 Hours) Vital Signs Temp Pulse Resp BP BP Pulse Ox 08/30/21 14:16 81 18 98 08/30/21 12:00 36.7 C 80 18 129/66 97 08/30/21 10:48 84 20 98 08/30/21 08:00 36.4 C L 78 18 110/65 98 08/30/21 07:32 78 18 96 08/30/21 03:21 36.6 C 61 18 155/67 H 99
--- NOTE | 2021-08-30 15:29 | Discharge Summary ---
Date of Service August 30, 2021 Admission HPI Per Admitting Provider For one week, weak all over and SOB requiring more oxygen. On chronic oxygen supplementation. Coughing to get rid of phlegm, can't bring anything up. Feels like the coughing spells would cause him to be very SOB. He would change his breathing to help recover and today was having oo much trouble. Lifelong smoker, quit 10 years ago. Sputum is "dark green bacteria looking yuck" +chills, no fever +nausea related to SOB, no vomiting loose stool reported x 2 weeks, no afua diarrhea drinking history, 2 beers "at least" and one rum and coke daily-last drink was last night ROS: +chest pain substernal middle-associated with not breathing had it when he arrived to the ER, not present now chest pain and breathing is worse with any exertion "I can only walk 5 feet at baseline." Walks with a walker/independent at baseline. Discharge Data Allergies Allergy/AdvReac Type Severity Reaction Status Date / Time No Known Allergies Allergy Verified 08/23/21 14:45 Consultations 08/23/21 15:56 ED Decision to Admit Stat 08/24/21 07:32 Consult Cardiology Routine Hospital Course (1) COPD exacerbation: (2) Acute and chronic respiratory failure: (3) Elevated troponin I level: (4) Hypomagnesemia: (5) Alcohol abuse: 80 year old male with COPD on chronic oxygen and inhalers presented to the emergency with generalized weakness, shortness of breath and admitted for COPD exacerbation/ Acute exacerbation of COPD Chronic hypoxic respiratory failure CXR showed no acute pulmonary finding. Sputum culture grew Pseudomonas Azithromycin changed to Levaquin Continue Levaquin 750 daily, check EKG to monitor QTC while on Levaquin Continue neb treatment, flutter valve and Mucinex Continue oxygen supplement Clinically improved Elevated troponin- likely demand ischemia from above. Trop mildly elevated but already downtrending. EKG showed no ischemic changes Echo reviewed, no significant finding. Continue metoprolol Cardio on board did not recommend any further testing Alcohol abuse on gabapentin and prn ativan, CIWA protocol. Continue monitor for sign of alcohol withdrawal. Counseling on alcohol cessation Diarrhea He described it as loose stool that seems to be chronic If diarrhea worsening and becomes watery, will send stool for Cdiff Sinus tachy- Continue lopressor by cardio- watch out for worsening wheezing, if so will discontinue DVT ppx- sc lovenox Disposition Possible discharge in a.m. Discharge Plan Discharge Items Patient Disposition: Transfer Inpatient Rehab Fac Reason For Visit: COPD EXACERBATION Discharge Diagnosis: (1) COPD exacerbation: (2) Acute and chronic respiratory failure: (3) Elevated troponin I level: (4) Hypomagnesemia: (5) Alcohol abuse: Activity: Resume your previous activity Non-emergency contact: Primary Care Provider Call non-emergency contact if: you have any medication questions and your symptoms worsen Follow-up/Referrals: Kavya Dillard CRNP [Primary Care Provider] - Diet: Heart Healthy Addtl Attending Provider Instructions: Follow up with your primary care provider on Kavya TUCKER once discharge Encompas 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 Continue physical and occupational therapy Continue oxygen supplement with 2.5 Liter Nasal canula Continue flutter valve, nebulizer treatment and incentive spirometry on discharge Counseling on alcohol cessation Fall precaution Pending Studies at Discharge: No Stand-Alone Forms: My [facility] Skilled Items Patient informed of condition?: Yes DNR: No Discharge Level of Care: Acute rehab Communicable Disease: No Discharge Prognosis: Stable Lines: None Urinary Catheter: No Medications and DC Order Prescriptions: New loperamide 2 mg Capsule 2 mg PO Q8H PRN (Reason: loose stool) Qty: 30 RF: 0 prednisone 20 mg Tablet 20 mg PO UD Qty: 4 RF: 0 levofloxacin 750 mg Tablet 750 mg PO Q24H 2 Days Qty: 2 RF: 0 metoprolol tartrate 25 mg Tablet 12.5 mg PO BID 30 Days Qty: 30 RF: 0 guaifenesin 200 mg tablet 200 mg PO TID PRN (Reason: cough) Qty: 21 RF: 0 Continued Daliresp 500 mcg tablet 500 mcg PO QAM RF: 0 folic acid 1 mg tablet 1 mg PO QAM RF: 0 ProAir RespiClick 90 mcg/actuation aerosol powdr breath activated 2 puffs INH Q4H PRN (Reason: shortness of breath or wheezing) RF: 0 thiamine HCl (vitamin B1) 100 mg tablet 100 mg PO QAM RF: 0 prednisone 1 mg tablet 1 mg PO QAM RF: 0 cyanocobalamin (vitamin B-12) 100 mcg tablet 100 mcg PO DAILY RF: 0 fluticasone propion-salmeterol [Advair Diskus] 250-50 mcg/dose Blister With Device 1 inh INHALATION BID RF: 0 Changed ipratropium-albuterol 0.5 mg-3 mg(2.5 mg base)/3 mL solution for nebulization 3 ml INH QID Qty: 0 RF: 0 Discharge Orders: Discharge Order (Routine); Ordered 08/30/21 Ordered By: Alice Hood Admission Data Admit Date/Time: 08/23/21 16:24 Attending Provider: Alice Hood Admit Provider: Yesi Lopez Primary Care Provider: Kavya Dillard Other Providers: Yesi Lopez ; Mika Hooper ; Jd Matre ; Polo Blackmon ; Jesus Cummings ; Luis Antonio Thompson ; Joni Cabrera ; Khadijah Cyr ; Isamar Morrow ; Marsha Valle ; Pedro Moselye ; [facility] ; Roberto Gaspar.
== END 2021-08-30 17:13 | DRG 190 ==
LOC: ED 13:13 → SUATTDRO 16:24 → 2S 16:24

== ENCOUNTER 2021-09-27 15:04 | Inpatient (IN) ==
--- NOTE | 2021-09-27 15:16 | Emergency Department Note ---
Impression & Plan Sepsis, COPD exacerbation, Dyspnea, C. difficile colitis ED Provider Note NAME: JORDAN BRADFORD JR AGE: 80 SEX: M : 1940 ARRIVES VIA: Ambulance INFORMANT: Patient, ED PROVIDER(S): Kash Gonzales MD Chief Complaint: Cough, SOB, chills HPI: Patient presents from home due to concern for chills and shortness of breath. The patient states that he was trying to go from the bathroom back to her bedroom and had sudden onset of symptoms. The patient does have some overall body aches. Patient does have associated abdominal pain and was recently being treated for C. difficile. The patient states that he did run out of one of his medications. The patient does not use any alcohol or tobacco. The patient does not wear chronic oxygen at all x3 L. Patient has had a productive cough present sure as whether not it is clear or discolored. Patient does wear oxygen at all times. No fevers or vomiting. The patient did have a associated chills. Patient does come from home where he does live with his wif e. The patient does not wear any CPAP or BiPAP. Patient denies any leg swelling. ROS: See HPI for pertinent positives and negatives. A total of 10 systems were reviewed and otherwise negative. Past medical history: See below Surgical history: See below Social history: See below Physical Exam: GENERAL: Ill in appearance, rigors, wearing a mask, nasal cannula in placeNAD, wearing glasses, wearing a mask, non-toxic. EYE EXAM: Normal conjunctiva. PERRL, no anisocoria and EOM's grossly intact w/o pain. NECK: Supple, no nuchal rigidity, no adenopathy, non-tender. No signs of meningismus. FROM of the neck with good chin to chest and neck extension. No stridor. LUNGS: Decreased breath sounds throughout, mild tachypnea HEART: Tachycardic and regular, no MRG. ABDOMEN: Abdomen soft, non-tender, normo-active bowel sounds, no masses, no rebound or guarding. BACK: No CVA TTP. SKIN: No rashes and no bruising. UPPER EXTREMITIES: Upper extremities are grossly normal. LOWER EXTREMITIES: Grossly normal, no edema. Negative Homans' sign. NEURO EXAM: A&O x3, cranial nerves II-XII grossly intact, normal speech, moves all 4 extremities on command w/o issue. Differential diagnoses: Reactive airway disease, pneumonia, pneumothorax, COPD, CHF, infections, cardiac ischemia, pulmonary embolism, musculoskeletal, gastrointestinal, as well as other pathologies. Course: Patient was seen and evaluated the bedside. Full history physical exam was performed. EKG interpreted by me Normal sinus rhythm, rate of 100, normal intervals, right axis deviation. Imaging Studies: See Below Cardiac monitoring: An order was placed for continuous cardiac monitoring. The monitor shows a rate of 107 with tachycardic and regular rhythm. MDM: Patient was seen for shortness of breath and chills. The patient did have abdominal pain on exam. Blood work was obtained along with empiric antibiotics blood cultures and a lactate. The patient was ordered IV fluids and hour-long and steroids as the patient does have a history of acute on chronic respiratory failure COPD he did have decreased breath sounds with mild tachypnea. Patient's blood work showed white count of 13 with mild hemoglobin 12.4. The patient's kidney function was unremarkable VBG does not show any hypercarbia. Patient's lactate was elevated. Initially the patient was held in aggressive fluids given the patient's elevated BNP. The patient does not seem to have signs consistent with heart failure an additional 500 cc bolus was ordered for 30 cc/kg bolus. Patient's CT did show consistent pancolitis. This is likely the cause of the patient's abdominal discomfort as the patient did have recent positive C. difficile. I did speak to the on-call hospitalist and the patient was admitted to the medicine service by Dr. Lopez. Past Med/Surg History Medical History Alcohol abuse Chronic obstructive pulmonary disease Chronic respiratory failure Fibrosis of lung GERD with esophagitis History of alcohol abuse History of tobacco use On home oxygen therapy WEARS O2 AT 2L CONT. Oxygen dependent Pulmonary hypertension Surgical History History of right cataract surgery History of tooth extraction Family History Mother Diverticulitis Father COPD (chronic obstructive pulmonary disease) Dad was a smoker Social History Smoking Status: Former smoker Tobacco Type: E-cigarettes / Vaping Second Hand Exposure: Yes; Hx Alcohol Use: Yes Alcohol type: beer Hx Substance Use: No Preferred Language: Indonesian Communication Ability: Effective Artificial Plastic Eye Maker Required: No Beliefs That Will Affect Care: None Current Living Situation: Spouse Feels Safe at Home: Yes Assistive Devices: Oxygen - Continuous Allergies Allergies Allergy/AdvReac Type Severity Reaction Status Date / Time No Known Allergies Allergy Verified 09/27/21 16:47 Home Meds Home Medications Medication Instructions Recorded Confirmed albuterol sulfate 90 mcg/actuation 2 puffs INH Q4H PRN ea 04/11/19 09/27/21 breath activated powder inhaler (ProAir RespiClick) folic acid 1 mg tablet 1 mg PO QAM tab 04/11/19 09/27/21 roflumilast 500 mcg tablet 500 mcg PO QAM 04/11/19 09/27/21 (Daliresp) thiamine HCl (vitamin B1) 100 mg 100 mg PO QAM 04/11/19 09/27/21 tablet cyanocobalamin (vitamin B-12) 100 100 mcg PO DAILY 08/23/21 09/27/21 mcg tablet fluticasone 250 mcg-salmeterol 50 1 inh INHALATION BID 08/23/21 09/27/21 mcg/dose blistr powdr for inhalation (Advair Diskus) prednisone 1 mg tablet 1 mg PO QAM 08/23/21 09/27/21 acetaminophen 500 mg tablet 500 mg PO Q4H PRN 09/27/21 09/27/21 (Tylenol Extra Strength) famotidine 10 mg tablet 10 mg PO BID 09/27/21 09/27/21 ipratropium bromide 0.02 % 2.5 ml INHALATION TID 09/27/21 09/27/21 solution for inhalation levalbuterol HCl 1.25 mg/3 mL 1.25 mg INHALATION TID 09/27/21 09/27/21 solution for nebulization (Xopenex) multivitamin with minerals 1 tab PO DAILY 09/27/21 09/27/21 omeprazole 40 mg capsule,delayed 40 mg PO DAILYBB 09/27/21 09/27/21 release potassium chloride 20 mEq 20 meq PO DAILY 09/27/21 09/27/21 tablet,extended release tiotropium bromide 1.25 2 puff INHALATION DAILY 09/27/21 09/27/21 mcg/actuation mist for inhalation (Spiriva Respimat) vancomycin 125 mg capsule 125 mg PO QID 09/27/21 09/27/21 Previous Rx's Medication Instructions Recorded metoprolol tartrate 25 mg tablet 12.5 mg PO BID 30 Days #30 tab 08/30/21 Results & Data (ED) Vital Signs Vital Signs - 24 hr 09/27/21 15:09 09/27/21 15:54 09/27/21 16:00 Temperature 37.3 C Temperature Source Oral Pulse Rate 105 H 97 H Pulse Rate from SpO2 Sensor 97 H Pulse Rhythm Regular Pulse Strength Normal Respiratory Rate 20 17 Respiratory Effort / Characteristics Short of Breath Respiratory Depth Shallow Respiratory Pattern Regular Blood Pressure 179/82 H 125/70 Blood Pressure Mean 114 88 Blood Pressure Position Lying Pulse Oximetry 85 L 97 100 Oxygen Delivery Method Room Air Nasal Cannula Oxygen Flow Rate 0 3 Sepsis Recent Fever Within 48 Hours No Sepsis New/Unexplained Change in Mental Status No Sepsis Action Taken by Nursing No Action Required Oxygen Flow Rate - Titration 3 Pulse Oximetry Post Tiitration 99 09/27/21 16:30 09/27/21 17:00 09/27/21 18:00 Temperature Temperature Source Pulse Rate 98 H 110 H 115 H Pulse Rate from SpO2 Sensor 114 H Pulse Rhythm Pulse Strength Respiratory Rate 18 22 26 H Respiratory Effort / Characteristics Respiratory Depth Respiratory Pattern Blood Pressure 143/69 H 143/68 H 101/76 Blood Pressure Mean 93 93 84 Blood Pressure Position Pulse Oximetry 99 99 97 Oxygen Delivery Method Oxygen Flow Rate Sepsis Recent Fever Within 48 Hours Sepsis New/Unexplained Change in Mental Status Sepsis Action Taken by Nursing Oxygen Flow Rate - Titration Pulse Oximetry Post Tiitration 09/27/21 18:30 Temperature Temperature Source Pulse Rate 108 H Pulse Rate from SpO2 Sensor 113 H Pulse Rhythm Pulse Strength Respiratory Rate 23 Respiratory Effort / Characteristics Respiratory Depth Respiratory Pattern Blood Pressure 131/78 Blood Pressure Mean 95 Blood Pressure Position Pulse Oximetry 99 Oxygen Delivery Method Nasal Cannula Oxygen Flow Rate 3 Sepsis Recent Fever Within 48 Hours Sepsis New/Unexplained Change in Mental Status Sepsis Action Taken by Nursing Oxygen Flow Rate - Titration Pulse Oximetry Post Tiitration Home Medications Current Medication List: was personally reviewed by me Laboratory Data Attestation: I reviewed the patient's lab results. Result diagrams: 09/28/21 04:11 09/28/21 04:11 Lab Results 09/27/21 09/27/21 09/27/21 Range/Units 15:17 15:17 15:40 WBC 13.44 H (4.8-10.8) K/uL RBC 3.91 L (4.7-6.1) M/uL Hgb 12.4 L (14.0-18.0) g/dL Hct 36.8 L (42-52) % MCV 94.1 (80-100) fL MCH 31.7 (25-34) pg MCHC 33.7 (32-36) g/dL RDW Std Deviation 45.5 (36.4-46.3) fL RDW Coeff of Julissa 13.2 (11.5-14.5) % Plt Count 281 (130-400) K/uL MPV 9.5 (7.4-10.4) fL Immature Gran % (Auto) 0.2 % Neut % (Auto) 77.9 % Lymph % (Auto) 13.8 % [place] % (Auto) 7.3 % Eos % (Auto) 0.7 % Baso % (Auto) 0.1 % Neut # (Auto) 10.47 H (1.4-6.5) K/uL Lymph # (Auto) 1.85 (1.2-3.4) K/uL [place] # (Auto) 0.98 H (0.11-0.59) K/uL Eos # (Auto) 0.09 (0-0.5) K/uL Baso # (Auto) 0.02 (0-0.2) K/uL Immature Gran # (Auto) 0.03 H (0.00-0.02) K/uL VBG pH (7.36-7.41) VBG pCO2 (38-50) mmHg VBG pO2 mmHg VBG HCO3 mmol/L VBG O2 Saturation % VBG Base Excess mEq/L Barometric Pressure mm/Hg Sodium 142 (136-145) mmol/L Potassium 4.6 (3.5-5.1) mmol/L Chloride 108 H (98-107) mmol/L Carbon Dioxide 25 (21-32) mmol/L Anion Gap 9 (3-11) BUN 14 (6-23) mg/dl Creatinine 0.85 (0.6-1.4) mg/dl Est Cr Clr Drug Dosing 51.1 ml/min Est GFR ( Amer) 96.7 ml/min Est GFR (Non-Af Amer) 83.5 ml/min BUN/Creatinine Ratio 16.5 (10-20) Glucose 97 (70-99(Fasting)) mg/dl Lactate (0.4-2.0) mmol/L Calcium 9.8 (8.5-10.1) mg/dl Total Bilirubin 0.3 (0.2-1.0) mg/dl AST 25 (13-39) U/L ALT 14 (7-52) U/L Alkaline Phosphatase 118 H (34-104) U/L Troponin I High Sens 7.4 (0-20) pg/ml B-Natriuretic Peptide 152 H (0-100) pg/ml Total Protein 6.9 (6.0-8.3) gm/dl Albumin 3.7 (3.4-5.0) gm/dl Globulin 3.2 (2.5-4.0) gm/dl Albumin/Globulin Ratio 1.2 (0.9-2) SARS-CoV-2 (PCR) (Negative) Influenza Type A (PCR) (Neg) Influenza Type B (PCR) (Neg) RSV (RT-PCR) (Neg) 09/27/21 09/27/21 09/27/21 Range/Units 15:40 15:45 16:45 WBC (4.8-10.8) K/uL RBC (4.7-6.1) M/uL Hgb (14.0-18.0) g/dL Hct (42-52) % MCV (80-100) fL MCH (25-34) pg MCHC (32-36) g/dL RDW Std Deviation (36.4-46.3) fL RDW Coeff of Julissa (11.5-14.5) % Plt Count (130-400) K/uL MPV (7.4-10.4) fL Immature Gran % (Auto) % Neut % (Auto) % Lymph % (Auto) % [place] % (Auto) % Eos % (Auto) % Baso % (Auto) % Neut # (Auto) (1.4-6.5) K/uL Lymph # (Auto) (1.2-3.4) K/uL [place] # (Auto) (0.11-0.59) K/uL Eos # (Auto) (0-0.5) K/uL Baso # (Auto) (0-0.2) K/uL Immature Gran # (Auto) (0.00-0.02) K/uL VBG pH 7.41 (7.36-7.41) VBG pCO2 39 (38-50) mmHg VBG pO2 20 mmHg VBG HCO3 24 mmol/L VBG O2 Saturation < 60.0 % VBG Base Excess -0.3 mEq/L Barometric Pressure 735.6 mm/Hg Sodium (136-145) mmol/L Potassium (3.5-5.1) mmol/L Chloride (98-107) mmol/L Carbon Dioxide (21-32) mmol/L Anion Gap (3-11) BUN (6-23) mg/dl Creatinine (0.6-1.4) mg/dl Est Cr Clr Drug Dosing ml/min Est GFR ( Amer) ml/min Est GFR (Non-Af Amer) ml/min BUN/Creatinine Ratio (10-20) Glucose (70-99(Fasting)) mg/dl Lactate 2.4 H* (0.4-2.0) mmol/L Calcium (8.5-10.1) mg/dl Total Bilirubin (0.2-1.0) mg/dl AST (13-39) U/L ALT (7-52) U/L Alkaline Phosphatase (34-104) U/L Troponin I High Sens (0-20) pg/ml B-Natriuretic Peptide (0-100) pg/ml Total Protein (6.0-8.3) gm/dl Albumin (3.4-5.0) gm/dl Globulin (2.5-4.0) gm/dl Albumin/Globulin Ratio (0.9-2) SARS-CoV-2 (PCR) NEGATIVE (Negative) Influenza Type A (PCR) Negative (Neg) Influenza Type B (PCR) Negative (Neg) RSV (RT-PCR) Negative (Neg) 09/27/21 Range/Units 17:32 WBC (4.8-10.8) K/uL RBC (4.7-6.1) M/uL Hgb (14.0-18.0) g/dL Hct (42-52) % MCV (80-100) fL MCH (25-34) pg MCHC (32-36) g/dL RDW Std Deviation (36.4-46.3) fL RDW Coeff of Julissa (11.5-14.5) % Plt Count (130-400) K/uL MPV (7.4-10.4) fL Immature Gran % (Auto) % Neut % (Auto) % Lymph % (Auto) % [place] % (Auto) % Eos % (Auto) % Baso % (Auto) % Neut # (Auto) (1.4-6.5) K/uL Lymph # (Auto) (1.2-3.4) K/uL [place] # (Auto) (0.11-0.59) K/uL Eos # (Auto) (0-0.5) K/uL Baso # (Auto) (0-0.2) K/uL Immature Gran # (Auto) (0.00-0.02) K/uL VBG pH (7.36-7.41) VBG pCO2 (38-50) mmHg VBG pO2 mmHg VBG HCO3 mmol/L VBG O2 Saturation % VBG Base Excess mEq/L Barometric Pressure mm/Hg Sodium (136-145) mmol/L Potassium (3.5-5.1) mmol/L Chloride (98-107) mmol/L Carbon Dioxide (21-32) mmol/L Anion Gap (3-11) BUN (6-23) mg/dl Creatinine (0.6-1.4) mg/dl Est Cr Clr Drug Dosing ml/min Est GFR ( Amer) ml/min Est GFR (Non-Af Amer) ml/min BUN/Creatinine Ratio (10-20) Glucose (70-99(Fasting)) mg/dl Lactate 2.8 H* (0.4-2.0) mmol/L Calcium (8.5-10.1) mg/dl Total Bilirubin (0.2-1.0) mg/dl AST (13-39) U/L ALT (7-52) U/L Alkaline Phosphatase (34-104) U/L Troponin I High Sens (0-20) pg/ml B-Natriuretic Peptide (0-100) pg/ml Total Protein (6.0-8.3) gm/dl Albumin (3.4-5.0) gm/dl Globulin (2.5-4.0) gm/dl Albumin/Globulin Ratio (0.9-2) SARS-CoV-2 (PCR) (Negative) Influenza Type A (PCR) (Neg) Influenza Type B (PCR) (Neg) RSV (RT-PCR) (Neg) Administered Medications Cyanocobalamin (Cyanocobalamin (B-12) 100 Mcg Tablet) 100 mcg PO DAILY [facility] Stop: 10/28/21 08:59 Last Admin: 09/28/21 07:54 Dose: 100 mcg Documented by: [id number] Enoxaparin Sodium (Enoxaparin Inj 30 Mg/0.3 Ml Syr) 30 mg SQ QAM [facility] Stop: 10/28/21 08:59 Last Admin: 09/28/21 07:54 Dose: 30 mg Documented by: [id number] Famotidine (Famotidine 10 Mg Tablet) 10 mg PO BID [facility] Stop: 10/28/21 08:59 Last Admin: 09/28/21 07:54 Dose: 10 mg Documented by: [id number] Fidaxomicin (Fidaxomicin 200 Mg Tab) 200 mg PO BID [facility] Stop: 10/08/21 00:14 Last Admin: 09/28/21 07:56 Dose: 200 mg Documented by: [id number] Admin: 09/28/21 00:29 Dose: 200 mg Documented by: [id number] Fluticasone/Vilanterol (Fluticasone/Vilanterol 100/25mcg 14 Puffs/Inhaler) 1 puffs INH DAILY [facility] Stop: 10/28/21 08:59 Last Admin: 09/28/21 07:53 Dose: 1 puffs Documented by: [id number] Folic Acid (Folic Acid 1 Mg Tab) 1 mg PO QAM [facility] Stop: 10/28/21 08:59 Last Admin: 09/28/21 07:54 Dose: 1 mg Documented by: [id number] Piperacillin Sod/Tazobactam (Sod 3.375 gm/ Dextrose) 115 mls @ 28.75 mls/hr IV Q8H [facility]; Protocol Stop: 09/29/21 21:59 Last Admin: 09/28/21 13:10 Dose: 28.8 mls/hr Documented by: [id number] Infusion: 09/28/21 09:36 Dose: 0 mls/hr Documented by: [id number] Admin: 09/28/21 05:35 Dose: 28.8 mls/hr Documented by: [id number] Infusion: 09/28/21 02:18 Dose: 0 mls/hr Documented by: [id number] Admin: 09/27/21 22:17 Dose: 28.8 mls/hr Documented by: [id number] Lactated Ringer's (Lr) 1,000 mls @ 75 mls/hr IV .[id number] [facility] Stop: 10/28/21 00:14 Last Admin: 09/28/21 09:40 Dose: 75 mls/hr Documented by: [id number] Infusion: 09/28/21 07:47 Dose: 75 mls/hr Documented by: [id number] Admin: 09/28/21 00:34 Dose: 150 mls/hr Documented by: [id number] Metronidazole (Flagyl) 500 mg in 100 mls @ 100 mls/hr IV Q8H [facility] Stop: 10/08/21 07:59 Last Infusion: 09/28/21 09:36 Dose: 0 mls/hr Documented by: [id number] Admin: 09/28/21 08:36 Dose: 100 mls/hr Documented by: [id number] Metoprolol Tartrate (Metoprolol Tartrate 25 Mg Tab) 12.5 mg PO BID [facility] Stop: 10/27/21 22:59 Last Admin: 09/28/21 08:36 Dose: 12.5 mg Documented by: [id number] Admin: 09/27/21 23:52 Dose: 12.5 mg Documented by: [id number] Pantoprazole Sodium (Pantoprazole 40 Mg Tab) 40 mg PO DAILYBB [facility] Stop: 10/28/21 06:29 Last Admin: 09/28/21 05:36 Dose: 40 mg Documented by: [id number] Potassium Chloride (Potassium Chloride Crtab 20 Meq Tabcr) 20 meq PO DAILY [facility] Stop: 10/28/21 08:59 Last Admin: 09/28/21 07:54 Dose: 20 meq Documented by: [id number] Prednisone (Prednisone 1 Mg Tab) 1 mg PO QAM [facility] Stop: 10/28/21 08:59 Last Admin: 09/28/21 07:54 Dose: 1 mg Documented by: [id number] Roflumilast (Roflumilast 500 Mcg Tab) 500 mcg PO QAM [facility] Stop: 10/28/21 08:59 Last Admin: 09/28/21 07:54 Dose: 500 mcg Documented by: [id number] Thiamine HCl (Thiamine Hcl 100 Mg Tab) 100 mg PO QAM [facility] Stop: 10/28/21 08:59 Last Admin: 09/28/21 07:54 Dose: 100 mg Documented by: [id number] Umeclidinium Fitzhugh (Umeclidinium Fitzhugh 62.5mcg/Blister 7 Puffs/Inhaler) 1 puffs INH DAILY [facility] Stop: 10/28/21 08:59 Last Admin: 09/28/21 07:53 Dose: 1 puffs Documented by: [id number] Discontinued Medications Albuterol (Albut/Ipratrop 3mg/0.5mg Neb 3 Ml Vial) 12 ml INH ONE [facility] Stop: 09/27/21 15:21 Last Admin: 09/27/21 15:47 Dose: 12 ml Documented by: [id number] Sodium Chloride (Nss 1000ml) 1,000 mls @ 999 mls/hr IV .[id number] [facility] Stop: 09/27/21 16:30 Last Infusion: 09/27/21 16:46 Dose: 0 mls/hr Documented by: [id number] Admin: 09/27/21 15:43 Dose: 999 mls/hr Documented by: [id number] Magnesium Sulfate/Dextrose (Magnesium Sulfate / D5w) 1 gm in 100 mls @ 100 mls/hr IV Q1H [facility] Stop: 09/27/21 17:29 Last Infusion: 09/27/21 17:50 Dose: 0 mls/hr Documented by: [id number] Admin: 09/27/21 16:49 Dose: 100 mls/hr Documented by: [id number] Infusion: 09/27/21 16:49 Dose: 0 mls/hr Documented by: [id number] Admin: 09/27/21 15:49 Dose: 100 mls/hr Documented by: [id number] Piperacillin Sod/Tazobactam Sod (Zosyn) 4.5 gm in 120 mls @ 240 mls/hr IV NOW ONE Stop: 09/27/21 15:51 Last Infusion: 09/27/21 17:32 Dose: 0 mls/hr Documented by: [id number] Admin: 09/27/21 16:48 Dose: 240 mls/hr Documented by: [id number] Sodium Chloride (Nss 1000ml) 500 mls @ 999 mls/hr IV .Q31M ONE Stop: 09/27/21 18:34 Last Infusion: 09/27/21 21:42 Dose: 0 mls/hr Documented by: [id number] Admin: 09/27/21 18:26 Dose: 999 mls/hr Documented by: [id number] Sodium Chloride (Nss 1000ml) 1,000 mls @ 75 mls/hr IV .[id number] [facility] Stop: 09/28/21 10:59 Last Infusion: 09/28/21 00:46 Dose: 0 mls/hr Documented by: [id number] Admin: 09/27/21 22:17 Dose: 75 mls/hr Documented by: [id number] Metronidazole (Flagyl) 500 mg in 100 mls @ 100 mls/hr IV .EXTRA DOSE ONE Stop: 09/28/21 01:29 Last Infusion: 09/28/21 01:41 Dose: 0 mls/hr Documented by: [id number] Admin: 09/28/21 00:40 Dose: 100 mls/hr Documented by: [id number] Ioversol (Optiray 320 100ml) 94 ml IV ONCE ONE Stop: 09/27/21 17:21 Last Admin: 09/27/21 17:21 Dose: 94 ml Documented by: [id number] Methylprednisolone (Methylprednisolone 125 Mg/2 Ml Vial) 125 mg IV NOW STA Stop: 09/27/21 15:21 Last Admin: 09/27/21 15:45 Dose: 125 mg Documented by: [id number] Raspberry (Raspberry Syrup 5 Ml Udp) 5 ml PO Q6 [facility] Stop: 10/08/21 00:00 Last Admin: 09/27/21 23:54 Dose: 5 ml Documented by: [id number] Vancomycin HCl (Vancomycin Hcl 125 Mg/2.5ml Soln) 125 mg PO Q6 [facility] Stop: 10/08/21 00:00 Last Admin: 09/27/21 23:54 Dose: 125 mg Documented by: [id number] Discharge Plan Visit Data Chief Complaint: Shortness of Breath/Dyspnea ED Provider: Kash Gonzales Discharge Problem: Sepsis, COPD exacerbation, Dyspnea, C. difficile colitis Patient Disposition: Admitted As Inpatient Discharge Instructions Interventions: ED Discharge Assessment Last Done: 09/27/21 21:07
[2021-09-27] MEDS ORDERED: ALBUT/IPRATROP 3MG/0.5MG NEB 3 ML VIAL INH STA (15:20)
[2021-09-27] MEDS ORDERED: methylPREDNISolone 125 MG/2 ML VIAL IV STA (15:20)
[2021-09-27] MEDS ORDERED: PIPERACILL/TAZOBAC CONSULT ACTIVE PRN (15:22)
[2021-09-27] MEDS ORDERED: PIPERACILLIN/TAZOBACTAM 4.5 GM/120 ML BAG IV ONE (15:22)
[2021-09-27] MEDS ORDERED: SODIUM CHLORIDE 0.9% 1000ML 1,000 ML IV SCH ×2 (15:30→21:40)
[2021-09-27 15:36] LABS: Basophils # (auto) 0.02 K/uL (0-0.2); Basophils % (auto) 0.1 %; Eosinophils # (auto) 0.09 K/uL (0-0.5); Eosinophils % (auto) 0.7 %; Hematocrit (blood only) 36.8 % (42-52); Hemoglobin 12.4 g/dL (14.0-18.0); Immature Granulocytes # (auto) 0.03 K/uL (0.00-0.02); Immature Granulocytes % (auto) 0.2 %; Lymphocytes # (auto) 1.85 K/uL (1.2-3.4); Lymphocytes % (auto) 13.8 %; Mean Corpuscular Hemoglobin 31.7 pg (25-34); Mean Corpuscular Hgb Conc 33.7 g/dL (32-36); Mean Corpuscular Volume 94.1 fL (80-100); Mean Platelet Volume 9.5 fL (7.4-10.4); Monocytes # (auto) 0.98 K/uL (0.11-0.59); Monocytes % (auto) 7.3 %; Neutrophils # (auto) 10.47 K/uL (1.4-6.5); Neutrophils % (auto) 77.9 %; Platelet Count 281 K/uL (130-400); RDW Coefficient of Variation 13.2 % (11.5-14.5); RDW Standard Deviation 45.5 fL (36.4-46.3); Red Blood Count 3.91 M/uL (4.7-6.1); White Blood Count 13.44 K/uL (4.8-10.8)
[2021-09-27] MEDS: MAGNESIUM SULFATE / D5W 1 GM/100 ML BAG IV SCH ×2 (15:49→16:49)
[2021-09-27 16:00] LABS: Troponin I High Sensitivity 7.4 pg/ml (0-20)
--- NOTE | 2021-09-27 16:01 | XRay Report ---
XR chest 1V portable HISTORY: Dyspnea COMPARISON: Chest 08/23/2021. FINDINGS: No pneumothorax. No pleural effusions. The lungs remain hyperexpanded with emphysematous ch anges. There is chronic interstitial thickening again noted. No new focal lung consolidations to sugg est pneumonia. No evidence for pulmonary edema. The heart is normal in size. IMPRESSION: No change in the emphysema and chronic interstitial change. ACT 112: Negative or not required by law. Electronically signed by: Madan Henderson M.D. 09/27/2021 3:59 PM
[2021-09-27 16:05] LABS: Albumin Globulin Ratio 1.2 (0.9-2); Albumin Level 3.7 gm/dl (3.4-5.0); BUN Creatinine Ratio 16.5 (10-20); Bilirubin,Total 0.3 mg/dl (0.2-1.0); Calcium 9.8 mg/dl (8.5-10.1); Creatinine Clr Calc Pharmacy 51.1 ml/min; Est GFR (African American) 96.7 ml/min; Est GFR (Non-African American) 83.5 ml/min; Globulin 3.2 gm/dl (2.5-4.0); Potassium 4.6 mmol/L (3.5-5.1); Total Protein 6.9 gm/dl (6.0-8.3)
[2021-09-27 16:39] LABS: Influenza A virus by PCR Negative (Neg); Influenza B virus by PCR Negative (Neg); RSV by PCR Negative (Neg); SARS CoV2 RNA(COVID-19) InHosp NEGATIVE (Negative)
[2021-09-27 17:15] LABS: Base Excess VBG -0.3 mEq/L; HCO3 VBG 24 mmol/L; Oxygen Saturation VBG < 60.0 %; PCO2 VBG 39 mmHg (38-50); PO2 VBG 20 mmHg; pH VBG 7.41 (7.36-7.41)
[2021-09-27] MEDS ORDERED: OPTIRAY 320 100ml IV ONE (17:20)
[2021-09-27] MEDS ORDERED: SODIUM CHLORIDE 0.9% 1000ML 500 ML IV ONE (18:04)
--- NOTE | 2021-09-27 18:08 | CT Scan Report ---
CT OF THE ABDOMEN AND PELVIS WITH CONTRAST CLINICAL HISTORY: Abdominal pain. History of recent C. difficile colitis. COMPARISON STUDY: CT of the abdomen and pelvis September 08, 2021. TECHNIQUE: Following IV administration of 94 mL of Optiray, axial images of the abdomen and pelvis we re obtained from the lung bases to the proximal femurs. Images were reviewed in the axial, sagittal, and coronal planes. IV contrast was administered without complication. Automated exposure control wa s utilized for the study. A dose lowering technique was utilized adhering to the principles of ALARA . CT DOSE: 243.76 mGy.cm FINDINGS: Emphysema is noted within the lower lungs. Densities within the lateral basilar segment of the left lower lobe are unchanged from earlier exams. This represents scarring. Bilateral pleural eff usions shown on CT of September 08, 2021 have significantly decreased in size. No pneumatosis, free air or portal venous gas is present. The liver, spleen, adrenal glands, kidneys and pancreas are unremarkab le. There is no biliary or pancreatic ductal dilatation. No peripancreatic or pericholecystic infiltr ation is present. There is no hydronephrosis. There is moderate plaque of the abdomen which is normal in caliber. The appendix is normal. There is no evidence for a bowel obstruction. Sigmoid diverticul osis is noted. Mild rectal wall thickening is noted. This has slightly improved since prior CT. There is moderate wall thickening of the sigmoid colon and descending colon which has also decreased since prior CT. There is mild wall thickening of the remainder of the colon. No abscess is present. Mild p ericolonic stranding and a small amount of ascites has diminished. Mild bladder wall thickening with adjacent infiltration is present. No acute fracture or suspicious lesion within visualized skeletal s tructures IMPRESSION: 1. Persistent proctocolitis consistent with history of C. difficile colitis. Moderate colonic wall th ickening with pericolonic stranding and fluid. Findings have decreased compared to prior CT of September 08, 2021. No abscess. No free air. 2. Bladder wall thickening with adjacent infiltration which could be correlated with urinalysis. ACT 112: Negative or not required by law. Electronically signed by: Charles Littlejohn M.D. 09/27/2021 6:06 PM
--- NOTE | 2021-09-27 19:33 | History & Physical Report ---
Date of Service September 27, 2021 Assessment & Plan (1) Sepsis: Plan: Possible developing sepsis with recent C-diff infection a couple of weeks ago with persistent abdominal pain. Awoke with rigors this am one week after he reportedly stopped vancomycin. Pt doesn't know his meds today, and reported to someone else he was still taking vancomycin. Unable to confirm with his pharmacy at this time. He is on prednisone consistently and recently finished a steroid taper for COPD exacerbation making him more susceptible to infection and fulminant c-diff. Currently there is no evidence of shock or hypotension, however, patient continues to have >5 watery stools daily and has abdominal pain. C-diff pending and restarted vanc PO. Consult GI for recs. Notably he had loose stools during last hospital stay where his c-diff was checked and was negative. Also contributing may be a UTI, pt reports some urinary retention issues and sample has not been given yet tonight. Covering broadly with Zosyn pending culture results and clinical improvement. If lactate continues to worsen, consult surgery for consideration of ischemic bowel. (2) C. difficile colitis: Plan: Plan as above. Vanc, GI consult. Cont supportive care overnight. Monitor lytes in am. (3) Acute urinary retention: Plan: Bladder scan this evening shows 330mls. Straight cath for UA sample to rule out infection. Of note, may be a false negative as Zosyn was given a few hours ago. (4) Chronic respiratory failure with hypoxia: Plan: 2/2 COPD, no wheezing and no sputum changes or cough reported. CXR is clear. Cont supplemental oxygen per home regimen. (5) Steroid dependent: Plan: chronic prednisone use noted. (6) Dependence on continuous supplemental oxygen: Plan: as above. (7) Alcohol abuse: Plan: history of this, reports hasn't drank alcohol in one year. (8) Severe protein-calorie malnutrition: Plan: cachectic appearing. Pt cannot given a history of his weight loss. Nutrition consult. (9) DVT prophylaxis: Plan: Lovenox Full Code confirmed on admission by patient. Dispo- to floor overnight for close monitoring. PT/OT to assess. Expect he would be here at least two midnights. [facility] History of Present Illness Chief Complaint: rigors Primary Care Provider: GARRETT Kaiser 80 yo M recently hospitalized for COPD exacerbation. He was discharged to [facility] on 08/30 and was diagnosed with cdiff colitis after developing diarrhea. He reports completing a course of vancomycin one week ago but continues to report profuse diarrhea > 5 BMs daily. He reports poor PO tolerance. Denies fevers, but woke up and felt very shaky this morning--describes rigors. Reports progressive fatigue at home over the past couple of days. Reported to the ER physician he had a productive cough and SOB, he denies that to me now and CXR is clear. Although previous notes say he abuses alcohol he reports not drinking in over a year. He reports weight loss but cannot describe this. Breathing is at baseline and he is on chronic home oxygen. Reports persistent abdominal pain across his navel. He describes this as dull with intermittent sharp pain. Eating and drinking makes it worse, and the pain has been persistent since leaving [facility] WBC elevated and he is tachycardic. CT abdomen pelvis with IV contrast reveals persistent pr octocolitis consistent with a history of C. difficile colitis with moderate colonic wall thickening and pericolonic stranding and fluid. Improvement is seen since prior CT 1 month ago with no abscess and no free air. ROS also reveals difficulty with urination. There is retention present and the pain he describes is in the bladder area. There is also evidence of bladder wall thickening on the CT abd/pelvis today. Allergies Allergy/AdvReac Type Severity Reaction Status Date / Time No Known Allergies Allergy Verified 09/27/21 16:47 Home Medications Medication Instructions Recorded Confirmed Type albuterol sulfate 90 mcg/actuation 2 puffs INH Q4H PRN ea 04/11/19 09/27/21 History breath activated powder inhaler (ProAir RespiClick) folic acid 1 mg tablet 1 mg PO QAM tab 04/11/19 09/27/21 History roflumilast 500 mcg tablet 500 mcg PO QAM 04/11/19 09/27/21 History (Daliresp) thiamine HCl (vitamin B1) 100 mg 100 mg PO QAM 04/11/19 09/27/21 History tablet cyanocobalamin (vitamin B-12) 100 100 mcg PO DAILY 08/23/21 09/27/21 History mcg tablet fluticasone 250 mcg-salmeterol 50 1 inh INHALATION BID 08/23/21 09/27/21 History mcg/dose blistr powdr for inhalation (Advair Diskus) prednisone 1 mg tablet 1 mg PO QAM 08/23/21 09/27/21 History metoprolol tartrate 25 mg tablet 12.5 mg PO BID 30 Days #30 tab 08/30/21 09/27/21 Rx acetaminophen 500 mg tablet 500 mg PO Q4H PRN 09/27/21 09/27/21 History (Tylenol Extra Strength) famotidine 10 mg tablet 10 mg PO BID 09/27/21 09/27/21 History ipratropium bromide 0.02 % 2.5 ml INHALATION TID 09/27/21 09/27/21 History solution for inhalation levalbuterol HCl 1.25 mg/3 mL 1.25 mg INHALATION TID 09/27/21 09/27/21 History solution for nebulization (Xopenex) multivitamin with minerals 1 tab PO DAILY 09/27/21 09/27/21 History omeprazole 40 mg capsule,delayed 40 mg PO DAILYBB 09/27/21 09/27/21 History release potassium chloride 20 mEq 20 meq PO DAILY 09/27/21 09/27/21 History tablet,extended release tiotropium bromide 1.25 2 puff INHALATION DAILY 09/27/21 09/27/21 History mcg/actuation mist for inhalation (Spiriva Respimat) vancomycin 125 mg capsule 125 mg PO QID 09/27/21 09/27/21 History Past Med/Surg History Medical History (Updated 09/27/21 @ 22:34 by Yesi Lopez DO) Alcohol abuse Chronic obstructive pulmonary disease Chronic respiratory failure Fibrosis of lung GERD with esophagitis History of alcohol abuse History of tobacco use On home oxygen therapy WEARS O2 AT 2L CONT. Oxygen dependent Pulmonary hypertension Surgical History History of right cataract surgery History of tooth extraction Family History Mother Diverticulitis Father COPD (chronic obstructive pulmonary disease) Dad was a smoker Social History Smoking Status: Former smoker Tobacco Type: E-cigarettes / Vaping Second Hand Exposure: Yes; Hx Alcohol Use: Yes Alcohol type: beer Hx Substance Use: No Preferred Language: Scottish Communication Ability: Effective Kosher Dietary Service Supervisor Required: No Beliefs That Will Affect Care: None Current Living Situation: Spouse Feels Safe at Home: Yes Assistive Devices: Oxygen - Continuous Review of Systems Review of Systems: All systems were reviewed and negative except as indicated on HPI above. Physical Exam Physical Exam: CONSTITUTIONAL: cachectic, vitals as above, generally well- appearing, NAD EYES: subconjunctival hemorrhage on medial right eye, no scleral icterus ENT: external ear and nose normal, oropharynx clear, MMM, edentulous. NECK: trachea midline RESPIRATORY: clear to auscultation bilaterally, no crackles, rales or wheezes, normal respiratory effort CARDIOVASCULAR: regular rate and rhythm, S1 and 2 heard without murmurs, gallops or rubs, no JVD, no peripheral edema CHEST: inspection of chest was normal GASTROINTESTINAL: soft, nontender, ND, no guarding MUSCULOSKELETAL: strength 5/5 throughout, head is normocephalic and atraumatic, neck supple, normal palpation of chest wall without tenderness SKIN: warm and dry NEUROLOGIC: CN 2-12 grossly intact, no sensory deficit, normal cognition, normal speech, no tremor PSYCHIATRIC: alert cooperative and oriented to person, place and time. Results & Data Results & Data ([facility]) Vital Signs (Past 12 Hours) Vital Signs Temp Pulse Resp BP Pulse Ox 09/27/21 18:30 108 H 23 131/78 99 09/27/21 18:00 115 H 26 H 101/76 97 09/27/21 17:00 110 H 22 143/68 H 99 09/27/21 16:30 98 H 18 143/69 H 99 09/27/21 16:00 97 H 17 125/70 100 09/27/21 15:54 97 09/27/21 15:09 37.3 C 105 H 20 179/82 H 85 L Laboratory Results Short CBC 09/27/21 Range/Units 15:17 WBC 13.44 H (4.8-10.8) K/uL Hgb 12.4 L (14.0-18.0) g/dL Hct 36.8 L (42-52) % Plt Count 281 (130-400) K/uL BMP 09/27/21 15:17 Sodium 142 Potassium 4.6 Chloride 108 H Carbon Dioxide 25 BUN 14 Creatinine 0.85 Glucose 97 Calcium 9.8 Liver Function 09/27/21 Range/Units 15:17 Total Bilirubin 0.3 (0.2-1.0) mg/dl AST 25 (13-39) U/L ALT 14 (7-52) U/L Alkaline Phosphatase 118 H (34-104) U/L Albumin 3.7 (3.4-5.0) gm/dl Diagnostic Findings Chest X-Ray 09/27/21 15:20 XR chest 1V portable HISTORY: Dyspnea COMPARISON: Chest 08/23/2021. FINDINGS: No pneumothorax. No pleural effusions. The lungs remain hyperexpanded with emphysematous changes. There is chronic interstitial thickening again noted. No new focal lung consolidations to suggest pneumonia. No evidence for pulmonary edema. The heart is normal in size. IMPRESSION: No change in the emphysema and chronic interstitial change. ACT 112: Negative or not required by law. Electronically signed by: Madan Henderson M.D. 09/27/2021 3:59 PM Abdomen/Pelvis CT 09/27/21 15:21 CT OF THE ABDOMEN AND PELVIS WITH CONTRAST CLINICAL HISTORY: Abdominal pain. History of recent C. difficile colitis. COMPARISON STUDY: CT of the abdomen and pelvis September 08, 2021. TECHNIQUE: Following IV administration of 94 mL of Optiray, axial images of the abdomen and pelvis were obtained from the lung bases to the proximal femurs. Images were reviewed in the axial, sagittal, and coronal planes. IV contrast was administered without complication. Automated exposure control was utilized for the study. A dose lowering technique was utilized adhering to the principles of ALARA. CT DOSE: 243.76 mGy.cm FINDINGS: Emphysema is noted within the lower lungs. Densities within the lateral basilar segment of the left lower lobe are unchanged from earlier exams. This represents scarring. Bilateral pleural effusions shown on CT of September 08, 2021 have significantly decreased in size. No pneumatosis, free air or portal venous gas is present. The liver, spleen, adrenal glands, kidneys and pancreas are unremarkable. There is no biliary or pancreatic ductal dilatation. No peripancreatic or pericholecystic infiltration is present. There is no hydronephrosis. There is moderate plaque of the abdomen which is normal in caliber. The appendix is normal. There is no evidence for a bowel obstruction. Sigmoid diverticulosis is noted. Mild rectal wall thickening is noted. This has slightly improved since prior CT. There is moderate wall thickening of the sigmoid colon and descending colon which has also decreased since prior CT. There is mild wall thickening of the remainder of the colon. No abscess is present. Mild pericolonic stranding and a small amount of ascites has diminished. Mild bladder wall thickening with adjacent infiltration is present. No acute fracture or suspicious lesion within visualized skeletal structures IMPRESSION: 1. Persistent proctocolitis consistent with history of C. difficile colitis. Moderate colonic wall thickening with pericolonic stranding and fluid. Findings have decreased compared to prior CT of September 08, 2021. No abscess. No free air. 2. Bladder wall thickening with adjacent infiltration which could be correlated with urinalysis. ACT 112: Negative or not required by law. Electronically signed by: Charles Littlejohn M.D. 09/27/2021 6:06 PM
[2021-09-27] MEDS ORDERED: ONDANSETRON INJ 2 MG/ML 2 ML VIAL IV PRN (21:40)
[2021-09-27] MEDS: PIPERACILLIN/TAZOBACTAM 3.375 GM in DEXTROSE 5% 100 ML IV SCH (22:17)
[2021-09-27 23:12] LABS: Appearance Urine Clear (Clear); Bilirubin Urine Negative (Negative); Blood Urine Negative (Negative); Color Urine Yellow; Glucose Urine UA Negative (Negative); Ketones Urine Trace (Negative); Leukocyte Esterase Urine Negative (Negative); Nitrite Urine Negative (Negative); Protein Urine Negative (Negative); Specific Gravity Urine > 1.045 (1.000-1.030); Urobilinogen Urine Negative (Negative)
[2021-09-27 23:14] LABS: Appearance Urine Clear (Clear); Bilirubin Urine Negative (Negative); Blood Urine Trace (Negative); Glucose Urine UA Negative (Negative); Ketones Urine Negative (Negative); Leukocyte Esterase Urine 1+ (Negative); Nitrite Urine Negative (Negative); Protein Urine Negative (Negative); Specific Gravity Urine > 1.045 (1.000-1.030); Urobilinogen Urine Negative (Negative)
[2021-09-27 23:27] LABS: Color Urine Yellow
[2021-09-27 23:33] LABS: Cdiff Antigen Positive; Cdiff Toxin A+B Positive Cdiff Toxin (Negative)
[2021-09-27] MEDS: METOPROLOL TARTRATE 25 MG TAB PO SCH (23:52)
[2021-09-28] MEDS ORDERED: VANCOMYCIN HCL 125 MG/2.5ML SOLN PO SCH
[2021-09-28] MEDS ORDERED: RASPBERRY SYRUP 5 ML UDP PO SCH
[2021-09-28] MEDS ORDERED: SODIUM CHLORIDE 0.9% 1000ML 1,000 ML IV SCH (00:15)
[2021-09-28] MEDS: FIDAXOMICIN 200 MG TAB PO SCH ×3 (00:29→20:06)
[2021-09-28] MEDS ORDERED: metroNIDAZOLE 500 MG/100 ML BAG IV ONE (00:30)
[2021-09-28] MEDS: LACTATED RINGER'S 1,000 ML IV SCH ×3 (00:34→23:23)
[2021-09-28 04:46] LABS: BUN Creatinine Ratio 17.9 (10-20); Calcium 8.6 mg/dl (8.5-10.1); Creatinine Clr Calc Pharmacy 53.9 ml/min; Est GFR (African American) 100.2 ml/min; Est GFR (Non-African American) 86.5 ml/min; Magnesium 1.8 mg/dl (1.7-2.4); Phosphorus 3.3 mg/dl (2.5-4.9); Potassium 4.4 mmol/L (3.5-5.1)
[2021-09-28 04:49] LABS: Hematocrit (blood only) 28.2 % (42-52); Hemoglobin 9.5 g/dL (14.0-18.0); Immature Granulocytes # (auto) 0.01 K/uL (0.00-0.02); Immature Granulocytes % (auto) 0.1 %; Lymphocytes # (auto) 0.77 K/uL (1.2-3.4); Mean Corpuscular Hemoglobin 31.9 pg (25-34); Mean Corpuscular Hgb Conc 33.7 g/dL (32-36); Mean Corpuscular Volume 94.6 fL (80-100); Mean Platelet Volume 9.2 fL (7.4-10.4); Monocytes # (auto) 0.54 K/uL (0.11-0.59); Monocytes % (auto) 4.2 %; Neutrophils % (auto) 89.7 %; Platelet Count 225 K/uL (130-400); RDW Coefficient of Variation 13.1 % (11.5-14.5); RDW Standard Deviation 45.4 fL (36.4-46.3); Red Blood Count 2.98 M/uL (4.7-6.1); White Blood Count 12.82 K/uL (4.8-10.8)
[2021-09-28] MEDS: PIPERACILLIN/TAZOBACTAM 3.375 GM in DEXTROSE 5% 100 ML IV SCH ×3 (05:35→21:02)
[2021-09-28] MEDS: PANTOprazole 40 MG TAB PO SCH (05:36)
[2021-09-28] MEDS: UMECLIDINIUM BROMIDE 62.5MCG/BLISTER 7 PUFFS/INHALER INH SCH (07:53)
[2021-09-28] MEDS: FLUTICASONE/VILANTEROL 100/25MCG 14 PUFFS/INHALER INH SCH (07:53)
[2021-09-28] MEDS: predniSONE 1 MG TAB PO SCH (07:54)
[2021-09-28] MEDS: FOLIC ACID 1 MG TAB PO SCH (07:54)
[2021-09-28] MEDS: POTASSIUM CHLORIDE CRTAB 20 MEQ TABCR PO SCH (07:54)
[2021-09-28] MEDS: ROFLUMILAST 500 MCG TAB PO SCH (07:54)
[2021-09-28] MEDS: ENOXAPARIN INJ 30 MG/0.3 ML SYR SQ SCH (07:54)
[2021-09-28] MEDS: CYANOCOBALAMIN (B-12) 100 MCG TABLET PO SCH (07:54)
[2021-09-28] MEDS: FAMOTIDINE 10 MG TABLET PO SCH ×2 (07:54→20:06)
[2021-09-28] MEDS: THIAMINE HCL 100 MG TAB PO SCH (07:54)
[2021-09-28] MEDS ORDERED: metroNIDAZOLE 500 MG/100 ML BAG IV SCH (08:00)
[2021-09-28] MEDS: METOPROLOL TARTRATE 25 MG TAB PO SCH ×2 (08:36→20:07)
--- NOTE | 2021-09-28 08:46 | XRay Report ---
KUB CLINICAL HISTORY: cdiff +, rule out megacolon COMPARISON STUDY: CT of the abdomen and pelvis September 27, 2021. FINDINGS: Incidental note is made of contrast within the bladder from recent contrast-enhanced CT. No significant bowel dilatation is identified on this examination. No evidence for a bowel obstruction. Scattered small and large bowel gas is present. Sensitivity for free air is diminished on this supin e exam but none is identified. IMPRESSION: Bowel gas pattern within normal limits. No radiographic evidence for megacolon. ACT 112: Negative or not required by law. Electronically signed by: Charles Littlejohn M.D. 09/28/2021 8:44 AM
[2021-09-28] MEDS ORDERED: NON-FORMULARY MEDICATION (Tiotropium Bromide [Spiriva Respimat] 1.25 mcg/actuation Mist) INH SCH (09:00)
[2021-09-28] MEDS ORDERED: FLUTICASONE/SALMETEROL 250/50 (ADVAIR) 14 PUFF/1 INHALER INH SCH (09:00)
--- NOTE | 2021-09-28 11:45 | Electrocardiogram Report ---
Test Reason : Blood Pressure : / mmHG Vent. Rate : 100 BPM Atrial Rate : 100 BPM P-R Int : 138 ms QRS Dur : 068 ms QT Int : 332 ms P-R-T Axes : 091 092 087 degrees QTc Int : 428 ms Poor data quality, interpretation may be adversely affected Suspect arm lead reversal, interpretation assumes no reversal Normal sinus rhythm Rightward axis Abnormal ECG When compared with ECG of 27-AUG-2021 05:44, Aberrant conduction is no longer Present Confirmed by León Salcedo ([id number]) on 09/28/2021 11:45:12 AM Referred By: REFERRED SELF Confirmed By:León Salcedo
--- NOTE | 2021-09-28 13:03 | Surgery Consultation ---
Date of Consultation September 28, 2021 Assessment & Plan (1) Steroid dependent: (2) C. difficile colitis: (3) Acute and chronic respiratory failure: (4) COPD exacerbation: 80-year-old gentleman presents with recurrent C. difficile. C. difficile is quite severe. He is currently on Dificid and Flagyl. He appears to be doing somewhat better than yesterday. His lactate has returned to normal. I discussed with him the possible need for surgery if he were to worsen. He is still at a heightened concern for toxic colitis. If he were to show any signs of this, given his other comorbidities, he would need to be transferred immediately to a tertiary care center, as was recommended yesterday. We will continue to follow along with you. History of Present Illness Reason for Consultation: C. difficile colitis Requesting Physician: Alice Hood MD Attending Physician: Alice Hood MD History of Present Illness 80-year-old gentleman with a recent C. difficile infection, currently being treated with oral vancomycin home presents with worsening abdominal pain and rigors and chills. He states that he had stopped to the vancomycin. He is not a good historian. He has been having greater than 5 watery bowel movements a day. He denies nausea or vomiting. In the emergency department, his lactate went from 2.2-4.7. I was consulted at that time and given his clinical symptomatology as well as his significant past medical history of steroid-depend ent COPD as well as other significant comorbidities, I recommended transfer to [facility] [address]. He apparently declined to be transferred, and was admitted to our hospital. After some fluid resuscitation, his lactate today is 1.2. He states his abdomen is feeling improved. Allergies Allergy/AdvReac Type Severity Reaction Status Date / Time No Known Allergies Allergy Verified 09/27/21 16:47 Home Medications Medication Instructions Recorded Confirmed Type albuterol sulfate 90 mcg/actuation 2 puffs INH Q4H PRN ea 04/11/19 09/27/21 History breath activated powder inhaler (ProAir RespiClick) folic acid 1 mg tablet 1 mg PO QAM tab 04/11/19 09/27/21 History roflumilast 500 mcg tablet 500 mcg PO QAM 04/11/19 09/27/21 History (Daliresp) thiamine HCl (vitamin B1) 100 mg 100 mg PO QAM 04/11/19 09/27/21 History tablet cyanocobalamin (vitamin B-12) 100 100 mcg PO DAILY 08/23/21 09/27/21 History mcg tablet fluticasone 250 mcg-salmeterol 50 1 inh INHALATION BID 08/23/21 09/27/21 History mcg/dose blistr powdr for inhalation (Advair Diskus) prednisone 1 mg tablet 1 mg PO QAM 08/23/21 09/27/21 History metoprolol tartrate 25 mg tablet 12.5 mg PO BID 30 Days #30 tab 08/30/21 09/27/21 Rx acetaminophen 500 mg tablet 500 mg PO Q4H PRN 09/27/21 09/27/21 History (Tylenol Extra Strength) famotidine 10 mg tablet 10 mg PO BID 09/27/21 09/27/21 History ipratropium bromide 0.02 % 2.5 ml INHALATION TID 09/27/21 09/27/21 History solution for inhalation levalbuterol HCl 1.25 mg/3 mL 1.25 mg INHALATION TID 09/27/21 09/27/21 History solution for nebulization (Xopenex) multivitamin with minerals 1 tab PO DAILY 09/27/21 09/27/21 History omeprazole 40 mg capsule,delayed 40 mg PO DAILYBB 09/27/21 09/27/21 History release potassium chloride 20 mEq 20 meq PO DAILY 09/27/21 09/27/21 History tablet,extended release tiotropium bromide 1.25 2 puff INHALATION DAILY 09/27/21 09/27/21 History mcg/actuation mist for inhalation (Spiriva Respimat) vancomycin 125 mg capsule 125 mg PO QID 09/27/21 09/27/21 History Patient History Medical History Alcohol abuse Chronic obstructive pulmonary disease Chronic respiratory failure Fibrosis of lung GERD with esophagitis History of alcohol abuse History of tobacco use On home oxygen therapy WEARS O2 AT 2L CONT. Oxygen dependent Pulmonary hypertension Surgical History History of right cataract surgery History of tooth extraction Family History Mother Diverticulitis Father COPD (chronic obstructive pulmonary disease) Dad was a smoker Social History Smoking Status: Former smoker Tobacco Type: E-cigarettes / Vaping Second Hand Exposure: Yes; Hx Alcohol Use: Yes Alcohol type: beer Hx Substance Use: No Preferred Language: Bengali Communication Ability: Effective Upholsterer Outside Required: No Beliefs That Will Affect Care: None Current Living Situation: Spouse Feels Safe at Home: Yes Assistive Devices: Oxygen - Continuous Review of Systems Review of Systems: Other (He is an unreliable historian, and is difficult to obtain a full review of systems) Physical Exam Constitutional: WD/WN, vitals as above + ill appearing, + thin and + cachectic Neck: trachea midline, no thyromegaly Respiratory: normal respiratory effort; no respiratory distress and no labored breathing Cardiovascular: Rate/Rhythm: regular rate and regular rhythm Gastrointestinal (Abdomen): Inspection/Auscultation: abdomen normal to inspection and + abdomen distended (Slight distention) Percussion/Palpation: + abdomen tender (Diffusely) and abdomen soft; no guarding Musculoskeletal: Extremities: no cyanosis and no clubbing Skin: no rashes, warm and dry Psychiatric: A+Ox3, euthymic affect Results & Data ([facility]) Vital Signs (Past 12 Hours) Vital Signs Temp Pulse Resp BP Pulse Ox 09/28/21 11:12 36.8 C 66 20 134/66 98 09/28/21 07:51 36.5 C 73 20 129/66 98 09/28/21 03:42 36.6 C 74 20 117/63 90 Laboratory Results 09/28/21 09/28/21 09/28/21 Range/Units 04:11 04:11 04:11 WBC 12.82 H (4.8-10.8) K/uL RBC 2.98 L (4.7-6.1) M/uL Hgb 9.5 L (14.0-18.0) g/dL Hct 28.2 L (42-52) % MCV 94.6 (80-100) fL MCH 31.9 (25-34) pg MCHC 33.7 (32-36) g/dL RDW Std Deviation 45.4 (36.4-46.3) fL RDW Coeff of Julissa 13.1 (11.5-14.5) % Plt Count 225 (130-400) K/uL MPV 9.2 (7.4-10.4) fL Immature Gran % (Auto) 0.1 % Neut % (Auto) 89.7 % Lymph % (Auto) 6.0 % [place] % (Auto) 4.2 % Eos % (Auto) 0.0 % Baso % (Auto) 0.0 % Neut # (Auto) 11.50 H (1.4-6.5) K/uL Lymph # (Auto) 0.77 L (1.2-3.4) K/uL [place] # (Auto) 0.54 (0.11-0.59) K/uL Eos # (Auto) 0.00 (0-0.5) K/uL Baso # (Auto) 0.00 (0-0.2) K/uL Immature Gran # (Auto) 0.01 (0.00-0.02) K/uL VBG pH (7.36-7.41) VBG pCO2 (38-50) mmHg VBG pO2 mmHg VBG HCO3 mmol/L VBG O2 Saturation % VBG Base Excess mEq/L Barometric Pressure mm/Hg Sodium (136-145) mmol/L Potassium (3.5-5.1) mmol/L Chloride (98-107) mmol/L Carbon Dioxide (21-32) mmol/L Anion Gap (3-11) BUN (6-23) mg/dl Creatinine (0.6-1.4) mg/dl Est Cr Clr Drug Dosing ml/min Est GFR ( Amer) ml/min Est GFR (Non-Af Amer) ml/min BUN/Creatinine Ratio (10-20) Glucose (70-99(Fasting)) mg/dl Lactate 1.2 (0.4-2.0) mmol/L Calcium (8.5-10.1) mg/dl Phosphorus (2.5-4.9) mg/dl Magnesium (1.7-2.4) mg/dl Total Bilirubin (0.2-1.0) mg/dl AST (13-39) U/L ALT (7-52) U/L Alkaline Phosphatase (34-104) U/L Troponin I High Sens (0-20) pg/ml B-Natriuretic Peptide (0-100) pg/ml Total Protein (6.0-8.3) gm/dl Albumin (3.4-5.0) gm/dl Globulin (2.5-4.0) gm/dl Albumin/Globulin Ratio (0.9-2) Procalcitonin 2.13 H (0-0.5) ng/ml Urine Color Urine Appearance (Clear) Urine pH (4.5-7.5) Ur Specific [place] (1.000-1.030) Urine Protein (Negative) Urine Glucose (UA) (Negative) Urine Ketones (Negative) Urine Blood (Negative) Urine Nitrite (Negative) Urine Bilirubin (Negative) Urine Urobilinogen (Negative) Ur Leukocyte Esterase (Negative) Stl C. diff Tox B Gene (Neg) Stl C.difficile Tox A&B (Negative) SARS-CoV-2 (PCR) (Negative) Influenza Type A (PCR) (Neg) Influenza Type B (PCR) (Neg) RSV (RT-PCR) (Neg) 09/28/21 09/28/21 09/27/21 Range/Units 04:11 00:57 22:58 WBC (4.8-10.8) K/uL RBC (4.7-6.1) M/uL Hgb (14.0-18.0) g/dL Hct (42-52) % MCV (80-100) fL MCH (25-34) pg MCHC (32-36) g/dL RDW Std Deviation (36.4-46.3) fL RDW Coeff of Julissa (11.5-14.5) % Plt Count (130-400) K/uL MPV (7.4-10.4) fL Immature Gran % (Auto) % Neut % (Auto) % Lymph % (Auto) % [place] % (Auto) % Eos % (Auto) % Baso % (Auto) % Neut # (Auto) (1.4-6.5) K/uL Lymph # (Auto) (1.2-3.4) K/uL [place] # (Auto) (0.11-0.59) K/uL Eos # (Auto) (0-0.5) K/uL Baso # (Auto) (0-0.2) K/uL Immature Gran # (Auto) (0.00-0.02) K/uL VBG pH (7.36-7.41) VBG pCO2 (38-50) mmHg VBG pO2 mmHg VBG HCO3 mmol/L VBG O2 Saturation % VBG Base Excess mEq/L Barometric Pressure mm/Hg Sodium 139 (136-145) mmol/L Potassium 4.4 (3.5-5.1) mmol/L Chloride 106 (98-107) mmol/L Carbon Dioxide 25 (21-32) mmol/L Anion Gap 8 (3-11) BUN 14 (6-23) mg/dl Creatinine 0.78 (0.6-1.4) mg/dl Est Cr Clr Drug Dosing 53.9 ml/min Est GFR ( Amer) 100.2 ml/min Est GFR (Non-Af Amer) 86.5 ml/min BUN/Creatinine Ratio 17.9 (10-20) Glucose 153 H (70-99(Fasting)) mg/dl Lactate 3.0 H* (0.4-2.0) mmol/L Calcium 8.6 (8.5-10.1) mg/dl Phosphorus 3.3 (2.5-4.9) mg/dl Magnesium 1.8 (1.7-2.4) mg/dl Total Bilirubin (0.2-1.0) mg/dl AST (13-39) U/L ALT (7-52) U/L Alkaline Phosphatase (34-104) U/L Troponin I High Sens (0-20) pg/ml B-Natriuretic Peptide (0-100) pg/ml Total Protein (6.0-8.3) gm/dl Albumin (3.4-5.0) gm/dl Globulin (2.5-4.0) gm/dl Albumin/Globulin Ratio (0.9-2) Procalcitonin (0-0.5) ng/ml Urine Color Yellow Urine Appearance Clear (Clear) Urine pH 5.0 (4.5-7.5) Ur Specific [place] > 1.045 H (1.000-1.030) Urine Protein Negative (Negative) Urine Glucose (UA) Negative (Negative) Urine Ketones Trace H (Negative) Urine Blood Negative (Negative) Urine Nitrite Negative (Negative) Urine Bilirubin Negative (Negative) Urine Urobilinogen Negative (Negative) Ur Leukocyte Esterase Negative (Negative) Stl C. diff Tox B Gene (Neg) Stl C.difficile Tox A&B (Negative) SARS-CoV-2 (PCR) (Negative) Influenza Type A (PCR) (Neg) Influenza Type B (PCR) (Neg) RSV (RT-PCR) (Neg) 09/27/21 09/27/21 09/27/21 Range/Units 22:37 20:51 20:41 WBC (4.8-10.8) K/uL RBC (4.7-6.1) M/uL Hgb (14.0-18.0) g/dL Hct (42-52) % MCV (80-100) fL MCH (25-34) pg MCHC (32-36) g/dL RDW Std Deviation (36.4-46.3) fL RDW Coeff of Julissa (11.5-14.5) % Plt Count (130-400) K/uL MPV (7.4-10.4) fL Immature Gran % (Auto) % Neut % (Auto) % Lymph % (Auto) % [place] % (Auto) % Eos % (Auto) % Baso % (Auto) % Neut # (Auto) (1.4-6.5) K/uL Lymph # (Auto) (1.2-3.4) K/uL [place] # (Auto) (0.11-0.59) K/uL Eos # (Auto) (0-0.5) K/uL Baso # (Auto) (0-0.2) K/uL Immature Gran # (Auto) (0.00-0.02) K/uL VBG pH (7.36-7.41) VBG pCO2 (38-50) mmHg VBG pO2 mmHg VBG HCO3 mmol/L VBG O2 Saturation % VBG Base Excess mEq/L Barometric Pressure mm/Hg Sodium (136-145) mmol/L Potassium (3.5-5.1) mmol/L Chloride (98-107) mmol/L Carbon Dioxide (21-32) mmol/L Anion Gap (3-11) BUN (6-23) mg/dl Creatinine (0.6-1.4) mg/dl Est Cr Clr Drug Dosing ml/min Est GFR ( Amer) ml/min Est GFR (Non-Af Amer) ml/min BUN/Creatinine Ratio (10-20) Glucose (70-99(Fasting)) mg/dl Lactate 4.7 H* (0.4-2.0) mmol/L Calcium (8.5-10.1) mg/dl Phosphorus (2.5-4.9) mg/dl Magnesium (1.7-2.4) mg/dl Total Bilirubin (0.2-1.0) mg/dl AST (13-39) U/L ALT (7-52) U/L Alkaline Phosphatase (34-104) U/L Troponin I High Sens (0-20) pg/ml B-Natriuretic Peptide (0-100) pg/ml Total Protein (6.0-8.3) gm/dl Albumin (3.4-5.0) gm/dl Globulin (2.5-4.0) gm/dl Albumin/Globulin Ratio (0.9-2) Procalcitonin (0-0.5) ng/ml Urine Color Yellow Urine Appearance Clear (Clear) Urine pH 5.0 (4.5-7.5) Ur Specific [place] > 1.045 H (1.000-1.030) Urine Protein Negative (Negative) Urine Glucose (UA) Negative (Negative) Urine Ketones Negative (Negative) Urine Blood Trace H (Negative) Urine Nitrite Negative (Negative) Urine Bilirubin Negative (Negative) Urine Urobilinogen Negative (Negative) Ur Leukocyte Esterase 1+ H (Negative) Stl C. diff Tox B Gene Positive Cdiff Gene H (Neg) Stl C.difficile Tox A&B Positive Cdiff Toxin A* (Negative) SARS-CoV-2 (PCR) (Negative) Influenza Type A (PCR) (Neg) Influenza Type B (PCR) (Neg) RSV (RT-PCR) (Neg) 09/27/21 09/27/21 09/27/21 Range/Units 17:32 16:45 15:45 WBC (4.8-10.8) K/uL RBC (4.7-6.1) M/uL Hgb (14.0-18.0) g/dL Hct (42-52) % MCV (80-100) fL MCH (25-34) pg MCHC (32-36) g/dL RDW Std Deviation (36.4-46.3) fL RDW Coeff of Julissa (11.5-14.5) % Plt Count (130-400) K/uL MPV (7.4-10.4) fL Immature Gran % (Auto) % Neut % (Auto) % Lymph % (Auto) % [place] % (Auto) % Eos % (Auto) % Baso % (Auto) % Neut # (Auto) (1.4-6.5) K/uL Lymph # (Auto) (1.2-3.4) K/uL [place] # (Auto) (0.11-0.59) K/uL Eos # (Auto) (0-0.5) K/uL Baso # (Auto) (0-0.2) K/uL Immature Gran # (Auto) (0.00-0.02) K/uL VBG pH 7.41 (7.36-7.41) VBG pCO2 39 (38-50) mmHg VBG pO2 20 mmHg VBG HCO3 24 mmol/L VBG O2 Saturation < 60.0 % VBG Base Excess -0.3 mEq/L Barometric Pressure 735.6 mm/Hg Sodium (136-145) mmol/L Potassium (3.5-5.1) mmol/L Chloride (98-107) mmol/L Carbon Dioxide (21-32) mmol/L Anion Gap (3-11) BUN (6-23) mg/dl Creatinine (0.6-1.4) mg/dl Est Cr Clr Drug Dosing ml/min Est GFR ( Amer) ml/min Est GFR (Non-Af Amer) ml/min BUN/Creatinine Ratio (10-20) Glucose (70-99(Fasting)) mg/dl Lactate 2.8 H* (0.4-2.0) mmol/L Calcium (8.5-10.1) mg/dl Phosphorus (2.5-4.9) mg/dl Magnesium (1.7-2.4) mg/dl Total Bilirubin (0.2-1.0) mg/dl AST (13-39) U/L ALT (7-52) U/L Alkaline Phosphatase (34-104) U/L Troponin I High Sens (0-20) pg/ml B-Natriuretic Peptide (0-100) pg/ml Total Protein (6.0-8.3) gm/dl Albumin (3.4-5.0) gm/dl Globulin (2.5-4.0) gm/dl Albumin/Globulin Ratio (0.9-2) Procalcitonin (0-0.5) ng/ml Urine Color Urine Appearance (Clear) Urine pH (4.5-7.5) Ur Specific [place] (1.000-1.030) Urine Protein (Negative) Urine Glucose (UA) (Negative) Urine Ketones (Negative) Urine Blood (Negative) Urine Nitrite (Negative) Urine Bilirubin (Negative) Urine Urobilinogen (Negative) Ur Leukocyte Esterase (Negative) Stl C. diff Tox B Gene (Neg) Stl C.difficile Tox A&B (Negative) SARS-CoV-2 (PCR) NEGATIVE (Negative) Influenza Type A (PCR) Negative (Neg) Influenza Type B (PCR) Negative (Neg) RSV (RT-PCR) Negative (Neg) 09/27/21 09/27/21 09/27/21 Range/Units 15:40 15:40 15:17 WBC (4.8-10.8) K/uL RBC (4.7-6.1) M/uL Hgb (14.0-18.0) g/dL Hct (42-52) % MCV (80-100) fL MCH (25-34) pg MCHC (32-36) g/dL RDW Std Deviation (36.4-46.3) fL RDW Coeff of Julissa (11.5-14.5) % Plt Count (130-400) K/uL MPV (7.4-10.4) fL Immature Gran % (Auto) % Neut % (Auto) % Lymph % (Auto) % [place] % (Auto) % Eos % (Auto) % Baso % (Auto) % Neut # (Auto) (1.4-6.5) K/uL Lymph # (Auto) (1.2-3.4) K/uL [place] # (Auto) (0.11-0.59) K/uL Eos # (Auto) (0-0.5) K/uL Baso # (Auto) (0-0.2) K/uL Immature Gran # (Auto) (0.00-0.02) K/uL VBG pH (7.36-7.41) VBG pCO2 (38-50) mmHg VBG pO2 mmHg VBG HCO3 mmol/L VBG O2 Saturation % VBG Base Excess mEq/L Barometric Pressure mm/Hg Sodium 142 (136-145) mmol/L Potassium 4.6 (3.5-5.1) mmol/L Chloride 108 H (98-107) mmol/L Carbon Dioxide 25 (21-32) mmol/L Anion Gap 9 (3-11) BUN 14 (6-23) mg/dl Creatinine 0.85 (0.6-1.4) mg/dl Est Cr Clr Drug Dosing 51.1 ml/min Est GFR ( Amer) 96.7 ml/min Est GFR (Non-Af Amer) 83.5 ml/min BUN/Creatinine Ratio 16.5 (10-20) Glucose 97 (70-99(Fasting)) mg/dl Lactate 2.4 H* (0.4-2.0) mmol/L Calcium 9.8 (8.5-10.1) mg/dl Phosphorus (2.5-4.9) mg/dl Magnesium (1.7-2.4) mg/dl Total Bilirubin 0.3 (0.2-1.0) mg/dl AST 25 (13-39) U/L ALT 14 (7-52) U/L Alkaline Phosphatase 118 H (34-104) U/L Troponin I High Sens 7.4 (0-20) pg/ml B-Natriuretic Peptide 152 H (0-100) pg/ml Total Protein 6.9 (6.0-8.3) gm/dl Albumin 3.7 (3.4-5.0) gm/dl Globulin 3.2 (2.5-4.0) gm/dl Albumin/Globulin Ratio 1.2 (0.9-2) Procalcitonin (0-0.5) ng/ml Urine Color Urine Appearance (Clear) Urine pH (4.5-7.5) Ur Specific [place] (1.000-1.030) Urine Protein (Negative) Urine Glucose (UA) (Negative) Urine Ketones (Negative) Urine Blood (Negative) Urine Nitrite (Negative) Urine Bilirubin (Negative) Urine Urobilinogen (Negative) Ur Leukocyte Esterase (Negative) Stl C. diff Tox B Gene (Neg) Stl C.difficile Tox A&B (Negative) SARS-CoV-2 (PCR) (Negative) Influenza Type A (PCR) (Neg) Influenza Type B (PCR) (Neg) RSV (RT-PCR) (Neg) 09/27/21 Range/Units 15:17 WBC 13.44 H (4.8-10.8) K/uL RBC 3.91 L (4.7-6.1) M/uL Hgb 12.4 L (14.0-18.0) g/dL Hct 36.8 L (42-52) % MCV 94.1 (80-100) fL MCH 31.7 (25-34) pg MCHC 33.7 (32-36) g/dL RDW Std Deviation 45.5 (36.4-46.3) fL RDW Coeff of Julissa 13.2 (11.5-14.5) % Plt Count 281 (130-400) K/uL MPV 9.5 (7.4-10.4) fL Immature Gran % (Auto) 0.2 % Neut % (Auto) 77.9 % Lymph % (Auto) 13.8 % [place] % (Auto) 7.3 % Eos % (Auto) 0.7 % Baso % (Auto) 0.1 % Neut # (Auto) 10.47 H (1.4-6.5) K/uL Lymph # (Auto) 1.85 (1.2-3.4) K/uL [place] # (Auto) 0.98 H (0.11-0.59) K/uL Eos # (Auto) 0.09 (0-0.5) K/uL Baso # (Auto) 0.02 (0-0.2) K/uL Immature Gran # (Auto) 0.03 H (0.00-0.02) K/uL VBG pH (7.36-7.41) VBG pCO2 (38-50) mmHg VBG pO2 mmHg VBG HCO3 mmol/L VBG O2 Saturation % VBG Base Excess mEq/L Barometric Pressure mm/Hg Sodium (136-145) mmol/L Potassium (3.5-5.1) mmol/L Chloride (98-107) mmol/L Carbon Dioxide (21-32) mmol/L Anion Gap (3-11) BUN (6-23) mg/dl Creatinine (0.6-1.4) mg/dl Est Cr Clr Drug Dosing ml/min Est GFR ( Amer) ml/min Est GFR (Non-Af Amer) ml/min BUN/Creatinine Ratio (10-20) Glucose (70-99(Fasting)) mg/dl Lactate (0.4-2.0) mmol/L Calcium (8.5-10.1) mg/dl Phosphorus (2.5-4.9) mg/dl Magnesium (1.7-2.4) mg/dl Total Bilirubin (0.2-1.0) mg/dl AST (13-39) U/L ALT (7-52) U/L Alkaline Phosphatase (34-104) U/L Troponin I High Sens (0-20) pg/ml B-Natriuretic Peptide (0-100) pg/ml Total Protein (6.0-8.3) gm/dl Albumin (3.4-5.0) gm/dl Globulin (2.5-4.0) gm/dl Albumin/Globulin Ratio (0.9-2) Procalcitonin (0-0.5) ng/ml Urine Color Urine Appearance (Clear) Urine pH (4.5-7.5) Ur Specific [place] (1.000-1.030) Urine Protein (Negative) Urine Glucose (UA) (Negative) Urine Ketones (Negative) Urine Blood (Negative) Urine Nitrite (Negative) Urine Bilirubin (Negative) Urine Urobilinogen (Negative) Ur Leukocyte Esterase (Negative) Stl C. diff Tox B Gene (Neg) Stl C.difficile Tox A&B (Negative) SARS-CoV-2 (PCR) (Negative) Influenza Type A (PCR) (Neg) Influenza Type B (PCR) (Neg) RSV (RT-PCR) (Neg) Diagnostic Findings CT OF THE ABDOMEN AND PELVIS WITH CONTRAST CLINICAL HISTORY: Abdominal pain. History of recent C. difficile colitis. COMPARISON STUDY: CT of the abdomen and pelvis September 08, 2021. TECHNIQUE: Following IV administration of 94 mL of Optiray, axial images of the abdomen and pelvis were obtained from the lung bases to the proximal femurs. Images were reviewed in the axial, sagittal, and coronal planes. IV contrast was administered without complication. Automated exposure control was utilized for the study. A dose lowering technique was utilized adhering to the principles of ALARA. CT DOSE: 243.76 mGy.cm FINDINGS: Emphysema is noted within the lower lungs. Densities within the lateral basilar segment of the left lower lobe are unchanged from earlier exams. This represents scarring. Bilateral pleural effusions shown on CT of September 08, 2021 have significantly decreased in size. No pneumatosis, free air or portal venous gas is present. The liver, spleen, adrenal glands, kidneys and pancreas are unremarkable. There is no biliary or pancreatic ductal dilatation. No peripancreatic or pericholecystic infiltration is present. There is no hydronephrosis. There is moderate plaque of the abdomen which is normal in caliber. The appendix is normal. There is no evidence for a bowel obstruction. Sigmoid diverticulosis is noted. Mild rectal wall thickening is noted. This has slightly improved since prior CT. There is moderate wall thickening of the sigmoid colon and descending colon which has also decreased since prior CT. There is mild wall thickening of the remainder of the colon. No abscess is present. Mild pericolonic stranding and a small amount of ascites has diminished. Mild bladder wall thickening with adjacent infiltration is present. No acute fracture or suspicious lesion within visualized skeletal structures IMPRESSION: 1. Persistent proctocolitis consistent with history of C. difficile colitis. Moderate colonic wall thickening with pericolonic stranding and fluid. Findings have decreased compared to prior CT of September 08, 2021. No abscess. No free air. 2. Bladder wall thickening with adjacent infiltration which could be correlated with urinalysis.
--- NOTE | 2021-09-28 14:58 | Gastrointestinal Consultation ---
Date of Consultation September 28, 2021 Assessment & Plan (1) C. difficile colitis: refractory cdiff nonresponsive to vancomycin treatment at least not completely: appears to be responding well to difficid and flagyl recs: --continue difficid 200 mg BID for a total of 10 days --likely does not need flagyl at this time can stop provided he is able to tolerate PO difficid --supportive care, IVFs --clear liquid diet for now and can advance as tolerated --should he decline/show evidence of toxic megacolon then would transfer to tertiary center for further evaluation and tx Thank you for allowing me to participate in the care of this patient History of Present Illness Attending Physician: Alice Hood MD History of Present Illness 80 yo male with hx COPD and diagnosied with cdiff about 3 weeks ago here with refractory cdiff. He completed vancomycin course a week ago but diarrhea continued, more than 5 bms daily, currently he says he is having liquid bm every 30 minutes. Lactate elevated on admission, has normalized now and normal renal function. currently on difficid and flagyl and appears to be improving. KUB with less distention today, no evidence of toxic megacolon. VSS and afebrile. CT A/P on admission showed persistent proctocolitis c/w hx cdiff, but improved overall compared to prior CT 1 month ago. labs reviewed. Allergies Allergy/AdvReac Type Severity Reaction Status Date / Time No Known Allergies Allergy Verified 09/27/21 16:47 Home Medications Medication Instructions Recorded Confirmed Type albuterol sulfate 90 mcg/actuation 2 puffs INH Q4H PRN ea 04/11/19 09/27/21 History breath activated powder inhaler (ProAir RespiClick) folic acid 1 mg tablet 1 mg PO QAM tab 04/11/19 09/27/21 History roflumilast 500 mcg tablet 500 mcg PO QAM 04/11/19 09/27/21 History (Daliresp) thiamine HCl (vitamin B1) 100 mg 100 mg PO QAM 04/11/19 09/27/21 History tablet cyanocobalamin (vitamin B-12) 100 100 mcg PO DAILY 08/23/21 09/27/21 History mcg tablet fluticasone 250 mcg-salmeterol 50 1 inh INHALATION BID 08/23/21 09/27/21 History mcg/dose blistr powdr for inhalation (Advair Diskus) prednisone 1 mg tablet 1 mg PO QAM 08/23/21 09/27/21 History metoprolol tartrate 25 mg tablet 12.5 mg PO BID 30 Days #30 tab 08/30/21 09/27/21 Rx acetaminophen 500 mg tablet 500 mg PO Q4H PRN 09/27/21 09/27/21 History (Tylenol Extra Strength) famotidine 10 mg tablet 10 mg PO BID 09/27/21 09/27/21 History ipratropium bromide 0.02 % 2.5 ml INHALATION TID 09/27/21 09/27/21 History solution for inhalation levalbuterol HCl 1.25 mg/3 mL 1.25 mg INHALATION TID 09/27/21 09/27/21 History solution for nebulization (Xopenex) multivitamin with minerals 1 tab PO DAILY 09/27/21 09/27/21 History omeprazole 40 mg capsule,delayed 40 mg PO DAILYBB 09/27/21 09/27/21 History release potassium chloride 20 mEq 20 meq PO DAILY 09/27/21 09/27/21 History tablet,extended release tiotropium bromide 1.25 2 puff INHALATION DAILY 09/27/21 09/27/21 History mcg/actuation mist for inhalation (Spiriva Respimat) vancomycin 125 mg capsule 125 mg PO QID 09/27/21 09/27/21 History Patient History Medical History Alcohol abuse Chronic obstructive pulmonary disease Chronic respiratory failure Fibrosis of lung GERD with esophagitis History of alcohol abuse History of tobacco use On home oxygen therapy WEARS O2 AT 2L CONT. Oxygen dependent Pulmonary hypertension Surgical History History of right cataract surgery History of tooth extraction Family History Mother Diverticulitis Father COPD (chronic obstructive pulmonary disease) Dad was a smoker Social History Smoking Status: Former smoker Tobacco Type: E-cigarettes / Vaping Second Hand Exposure: Yes; Hx Alcohol Use: Yes Alcohol type: beer Hx Substance Use: No Preferred Language: Nepali Communication Ability: Effective Electrical Service Technician Required: No Beliefs That Will Affect Care: None Current Living Situation: Spouse Feels Safe at Home: Yes Assistive Devices: Oxygen - Continuous Review of Systems Constitutional: no fever, no chills and no weight loss Eyes: as per Subjective / HPI Ear, Nose, Mouth, Throat: as per Subjective / HPI Respiratory: no dyspnea and no dyspnea on exertion Cardiovascular: no chest pain and no palpitations Gastrointestinal: as per Subjective / HPI Musculoskeletal: no joint pain and no swelling Integumentary: no rash and no lesions Neurologic: no numbness and no paresthesia Psychiatric: no depression and no anxiety Endocrine: no fatigue Hematologic / Lymphatic: no easy bleeding and no easy bruising Physical Exam Constitutional: WD/WN, vitals as above Eyes: EOM intact bilaterally Neck: normal visual inspection Respiratory: normal respiratory effort, lungs clear to auscultation Cardiovascular: RRR, no murmur, no edema Gastrointestinal (Abdomen): Inspection/Auscultation: abdomen normal to inspection; abdomen not distended Percussion/Palpation: + abdomen tender (moderate umbilical) and abdomen soft; no hepatosplenomegaly Musculoskeletal: Extremities: no cyanosis Gait: normal gait Skin: no rashes, warm and dry Neurologic: moves all extremities Psychiatric: A+Ox3, euthymic affect Results & Data ([facility]) Vital Signs (Past 12 Hours) Vital Signs Temp Pulse Resp BP Pulse Ox 09/28/21 11:12 36.8 C 66 20 134/66 98 09/28/21 07:51 36.5 C 73 20 129/66 98 09/28/21 03:42 36.6 C 74 20 117/63 90 PG Care Time/CCT Total # of Minutes Spent Total Time Spent with Patient: Total time spent is greater than 50% in coordination of care (as documented) at patient's floor/unit and/or counseling patient: Coding Level of Care Code 83121 Initial Inpt Care Lvl 3 Diagnoses C. difficile colitis A04.72
--- NOTE | 2021-09-28 15:49 | Hospitalist Progress Note ---
Date of Service September 28, 2021 Assessment & Plan (1) Sepsis: (2) C. difficile colitis: Plan: Present on admission with worsening diarrhea associated with mid abdominal tenderness Met sepsis criteria on admission with Tachycardia, Leukocytosis, elevate lactic acidosis and procalcitonin WBC on admission 24.3, lactic acid 4.7 Stool positive for C-diff CT abd/pelvis showed persistent proctocolitis consistent with history of C. difficile colitis. Moderate colonic wall thickening with pericolonic stranding and fluid. Pt just completed one week of PO Vanco outpatient Surgery on board Due to worsening lactate on admission there were concerned for toxic colitis. During the admission Surgery recommended to transfer to tertiary care facility, but pt declined the transfer Gastro on board recommended to continue Dificid 200mg BID for 10 days and di scontinued metronidazole Pt is on IV Zosyn currently. Blood cx and urine cx pending, will d/c IV Zosyn since pt is being treated for C-diff WBC improved to 12K and lactate 1.2, procalcitonin 2.1 today KUB showed bowel gas pattern within normal limits. No radiographic evidence for megacolon. If pt declines or shows sign of toxic megacolon then would transfer to tertiary center for further evaluation and tx Currently on clear liquid diet, will advance to full liquid as tolerate Continue monitor closely (3) Acute urinary retention: Plan: Pt has been voinding UA showed no sign of infection but seems UA was collected few hours after receiving Zosyn urine cx pending Will consider to d/c Zosyn (4) Chronic respiratory failure with hypoxia: Plan: 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 (6) Alcohol abuse: Plan: History of Alcohol abuse Denies any use of alcohol for about year (7) Severe protein-calorie malnutrition: Plan: BMI 16.4 Will encourage protein intake (8) DVT prophylaxis: Plan: Lovenox Full Code Admission and Anticipated Discharge Date Admission Date: September 27, 2021 Subjective Pt was seen and examined for follow up of Cdiff diarrhea Lying in bed with no acute distress Pt said that his abdominal pain improves Continue to have watery diarrhea Denies any nausea, vomiting, palpitation, dizziness and SOB Review of Systems Review of Systems: All systems reviewed & are unremarkable except as noted in Subjective Physical Exam Physical Exam: General- No acute distress Head- atraumatic Eyes- PERRL, EOMI, ENT- oropharynx clear Neck- supple, no JVD Lungs- No wheezing Heart- regular rhythm; no murmur Abdomen- normal bowel sounds, +tenderness in mid abdomen ( around the umbilical area) Extremities- no calf tenderness Neuro- alert, oriented x 3; PERRL, EOMI; no facial palsy; no dysarthria Skin- warm & dry Results & Data Results & Data ([facility]) Vital Signs (Past 12 Hours) Vital Signs Temp Pulse Resp BP Pulse Ox 09/28/21 15:20 36.8 C 73 20 135/72 96 09/28/21 11:12 36.8 C 66 20 134/66 98 09/28/21 07:51 36.5 C 73 20 129/66 98
--- NOTE | 2021-09-28 19:34 | XRay Report ---
XR chest 1V portable CLINICAL HISTORY: increasing shortness of breath COMPARISON STUDY: Chest radiograph September 27, 2021. FINDINGS: No pneumothorax or pleural effusion is noted. Emphysema is present. Interstitial thickening is unchanged and likely chronic. No consolidation is identified. The appearance of the chest is unch anged. Cardiac size is normal. Mediastinal contours are normal. IMPRESSION: 1. No acute cardiopulmonary findings. No change in appearance of the chest. Stable interstitial thick ening, likely chronic. 2. Emphysema. ACT 112: Negative or not required by law. Electronically signed by: Charles Littlejohn M.D. 09/28/2021 7:33 PM
[2021-09-29] MEDS: PIPERACILLIN/TAZOBACTAM 3.375 GM in DEXTROSE 5% 100 ML IV SCH (05:32)
[2021-09-29] MEDS: PANTOprazole 40 MG TAB PO SCH (05:32)
[2021-09-29] MEDS: POTASSIUM CHLORIDE CRTAB 20 MEQ TABCR PO SCH (08:10)
[2021-09-29] MEDS: FIDAXOMICIN 200 MG TAB PO SCH ×2 (08:10→21:04)
[2021-09-29] MEDS: UMECLIDINIUM BROMIDE 62.5MCG/BLISTER 7 PUFFS/INHALER INH SCH (08:11)
[2021-09-29] MEDS: ROFLUMILAST 500 MCG TAB PO SCH (08:12)
[2021-09-29] MEDS: CYANOCOBALAMIN (B-12) 100 MCG TABLET PO SCH (08:12)
[2021-09-29] MEDS: THIAMINE HCL 100 MG TAB PO SCH (08:12)
[2021-09-29] MEDS: FLUTICASONE/VILANTEROL 100/25MCG 14 PUFFS/INHALER INH SCH (08:12)
[2021-09-29] MEDS: FOLIC ACID 1 MG TAB PO SCH (08:12)
[2021-09-29] MEDS: METOPROLOL TARTRATE 25 MG TAB PO SCH ×2 (08:13→21:07)
[2021-09-29] MEDS: FAMOTIDINE 10 MG TABLET PO SCH ×2 (08:13→21:07)
[2021-09-29] MEDS: ENOXAPARIN INJ 30 MG/0.3 ML SYR SQ SCH (08:13)
[2021-09-29] MEDS: predniSONE 1 MG TAB PO SCH (08:13)
[2021-09-29 09:41] LABS: Hematocrit (blood only) 33.4 % (42-52); Hemoglobin 10.9 g/dL (14.0-18.0); Mean Corpuscular Hemoglobin 30.7 pg (25-34); Mean Corpuscular Hgb Conc 32.6 g/dL (32-36); Mean Corpuscular Volume 94.1 fL (80-100); Mean Platelet Volume 9.5 fL (7.4-10.4); Platelet Count 217 K/uL (130-400); RDW Coefficient of Variation 13.4 % (11.5-14.5); RDW Standard Deviation 46.7 fL (36.4-46.3); Red Blood Count 3.55 M/uL (4.7-6.1); White Blood Count 16.55 K/uL (4.8-10.8)
[2021-09-29 10:05] LABS: BUN Creatinine Ratio 17.2 (10-20); Calcium 8.1 mg/dl (8.5-10.1); Creatinine Clr Calc Pharmacy 49.1 ml/min; Est GFR (African American) 95.8 ml/min; Est GFR (Non-African American) 82.7 ml/min; Magnesium 1.5 mg/dl (1.7-2.4); Potassium 3.7 mmol/L (3.5-5.1)
[2021-09-29] MEDS: LACTATED RINGER'S 1,000 ML IV SCH (10:52)
--- NOTE | 2021-09-29 11:24 | Surgery Progress Note ---
Date of Service September 29, 2021 Assessment & Plan (1) Steroid dependent: (2) C. difficile colitis: (3) Acute and chronic respiratory failure: (4) COPD exacerbation: Plan: 80-year-old gentleman presents with recurrent C. difficile. C. difficile is quite severe. He is currently on Dificid and Flagyl. Although he seemed to be doing better yesterday, he appears to be slightly worsened today. His white count has increased to 16. I again discussed with him the potential need for surgical intervention. Once again given his multiple medical comorbidities, he would need to be transferred to a tertiary care center such as [facility] for definitive management. We will monitor him today. If he continues to worsen, he will need to be transferred for a higher level of care. Admission and Anticipated Discharge Date Admission Date: September 27, 2021 Subjective 80-year-old gentleman with refractory C. difficile. Currently on Dificid. He has had no change in pain from yesterday to today. It might be slightly worse today, however he continues to have greater than 10 bowel movements a day. He denies nausea or vomiting. He denies sweats or chills. Physical Exam Constitutional: WD/WN, vitals as above + ill appearing, + thin and + cachectic Neck: trachea midline, no thyromegaly Gastrointestinal (Abdomen): Inspection/Auscultation: abdomen normal to inspection and + abdomen distended (Slight distention) Percussion/Palpation: + abdomen tender (Diffusely) and abdomen soft; no guarding Musculoskeletal: Extremities: no cyanosis and no clubbing Skin: no rashes, warm and dry Psychiatric: A+Ox3, euthymic affect Results & Data ([facility]) Vital Signs (Past 12 Hours) Vital Signs Temp Pulse Pulse Resp BP Pulse Ox 09/29/21 11:14 36.7 C 67 20 138/77 94 09/29/21 08:16 79 18 151/73 H 95 09/29/21 07:11 77 09/29/21 02:35 37.0 C 61 20 163/74 H 97 Laboratory Results 09/29/21 09/29/21 09/29/21 Range/Units 09:30 09:30 09:30 WBC 16.55 H (4.8-10.8) K/uL RBC 3.55 L (4.7-6.1) M/uL Hgb 10.9 L (14.0-18.0) g/dL Hct 33.4 L (42-52) % MCV 94.1 (80-100) fL MCH 30.7 (25-34) pg MCHC 32.6 (32-36) g/dL RDW Std Deviation 46.7 H (36.4-46.3) fL RDW Coeff of Julissa 13.4 (11.5-14.5) % Plt Count 217 (130-400) K/uL MPV 9.5 (7.4-10.4) fL Sodium 136 (136-145) mmol/L Potassium 3.7 (3.5-5.1) mmol/L Chloride 103 (98-107) mmol/L Carbon Dioxide 27 (21-32) mmol/L Anion Gap 6 (3-11) BUN 15 (6-23) mg/dl Creatinine 0.87 (0.6-1.4) mg/dl Est Cr Clr Drug Dosing 49.1 ml/min Est GFR ( Amer) 95.8 ml/min Est GFR (Non-Af Amer) 82.7 ml/min BUN/Creatinine Ratio 17.2 (10-20) Glucose 99 (70-99(Fasting)) mg/dl Calcium 8.1 L (8.5-10.1) mg/dl Magnesium 1.5 L (1.7-2.4) mg/dl Procalcitonin 1.60 H (0-0.5) ng/ml
--- NOTE | 2021-09-29 13:54 | XRay Report ---
XR KUB/Abdomen 1 view CLINICAL HISTORY: c-diff, r/o Megacolon TECHNIQUE: 1 view of the abdomen was obtained. Comparison: Comparison is made to abdomen radiograph 09/28/2021 FINDINGS: Lung bases are unremarkable. The osseous structures are grossly unremarkable. Gaseous colonic dilatio n is seen up to 64 mm in diameter most prominent in the splenic flexure. A moderate amount of stool i s noted within the large bowel. IMPRESSION: Gaseous colonic dilation is seen. Automated colon cannot be excluded. ACT 112: Negative or not required by law. Electronically signed by: Jose Miguel Jiménez M.D. 09/29/2021 1:51 PM
--- NOTE | 2021-09-29 21:55 | Hospitalist Progress Note ---
Date of Service September 29, 2021 Assessment & Plan (1) Sepsis: (2) C. difficile colitis: Plan: Present on admission with worsening diarrhea associated with mid abdominal tenderness Met sepsis criteria on admission with Tachycardia, Leukocytosis, elevate lactic acidosis and procalcitonin WBC on admission 24.3, lactic acid 4.7 Stool positive for C-diff CT abd/pelvis showed persistent proctocolitis consistent with history of C. difficile colitis. Moderate colonic wall thickening with pericolonic stranding and fluid. Pt just completed one week of PO Vanco outpatient Surgery on board Due to worsening lactate on admission there were concerned for toxic colitis. During the admission Surgery recommended to transfer to tertiary care facility, but pt declined the transfer Gastro on board recommended to continue Dificid 200mg BID for 10 days and di scontinued metronidazole KUB showed gaseous colonic dilation is seen up to 64 mm in diameter most prominent in the splenic flexure. A moderate amount of stool is noted within the large bowel. Blood cx and urine cx no growth Pt was started on Zosyn, will discontinue today WBC worsening to 16K If pt declines, WBC continues to increase or shows sign of toxic megacolon then would transfer to tertiary center for further evaluation and tx Will repeat KUB in am Continue current diet Continue monitor closely (3) Acute urinary retention: Plan: Pt has been voinding UA showed no sign of infection but seems UA was collected few hours after receiving Zosyn urine cx no growth Zosyn discontinued (4) Chronic respiratory failure with hypoxia: Plan: 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 (6) Alcohol abuse: Plan: History of Alcohol abuse Denies any use of alcohol for about year (7) Severe protein-calorie malnutrition: Plan: BMI 16.4 Will encourage protein intake (8) DVT prophylaxis: Plan: Lovenox Full Code Admission and Anticipated Discharge Date Admission Date: September 27, 2021 Subjective Pt was seen and examined for follow up of Cdiff diarrhea Lying in bed with no acute distress Pt said that he continue to have abdominal pain and diarrhea He said that when he drank the shake early, He had abdominal pain Denies any nausea, vomiting, palpitation, dizziness and SOB Review of Systems Review of Systems: All systems reviewed & are unremarkable except as noted in Subjective Physical Exam Physical Exam: General- No acute distress Head- atraumatic Eyes- PERRL, EOMI, ENT- oropharynx clear Neck- supple, no JVD Lungs- No wheezing Heart- regular rhythm; no murmur Abdomen- normal bowel sounds, +tenderness in mid abdomen ( around the umbilical area) Extremities- no calf tenderness Neuro- alert, oriented x 3; PERRL, EOMI; no facial palsy; no dysarthria Skin- warm & dry Results & Data Results & Data ([facility]) Vital Signs (Past 12 Hours) Vital Signs Temp Pulse Pulse Resp BP Pulse Ox 09/29/21 19:41 36.8 C 68 20 135/69 98 09/29/21 15:27 94 H 09/29/21 15:25 36.2 C L 71 18 121/64 99 09/29/21 11:14 36.7 C 67 20 138/77 94
[2021-09-29] MEDS ORDERED: MAGNESIUM SULFATE / D5W 1 GM/100 ML BAG IV ONE (23:15)
[2021-09-30] MEDS: LACTATED RINGER'S 1,000 ML IV SCH ×2 (00:01→15:09)
[2021-09-30] MEDS: PANTOprazole 40 MG TAB PO SCH (06:08)
[2021-09-30 06:44] LABS: Hematocrit (blood only) 31.3 % (42-52); Hemoglobin 10.5 g/dL (14.0-18.0); Mean Corpuscular Hemoglobin 31.6 pg (25-34); Mean Corpuscular Hgb Conc 33.5 g/dL (32-36); Mean Corpuscular Volume 94.3 fL (80-100); Platelet Count 230 K/uL (130-400); RDW Coefficient of Variation 13.2 % (11.5-14.5); RDW Standard Deviation 45.9 fL (36.4-46.3); Red Blood Count 3.32 M/uL (4.7-6.1); White Blood Count 14.77 K/uL (4.8-10.8)
[2021-09-30 07:13] LABS: Creatinine Clr Calc Pharmacy 62.8 ml/min; Est GFR (Non-African American) 91.5 ml/min; Magnesium 1.8 mg/dl (1.7-2.4); Potassium 3.5 mmol/L (3.5-5.1)
[2021-09-30] MEDS: ACETAMINOPHEN 325 MG TAB PO PRN (08:50)
[2021-09-30] MEDS: ENOXAPARIN INJ 30 MG/0.3 ML SYR SQ SCH (08:53)
[2021-09-30] MEDS: FLUTICASONE/VILANTEROL 100/25MCG 14 PUFFS/INHALER INH SCH (08:53)
[2021-09-30] MEDS: CYANOCOBALAMIN (B-12) 100 MCG TABLET PO SCH (08:53)
[2021-09-30] MEDS: FAMOTIDINE 10 MG TABLET PO SCH ×2 (08:53→21:29)
[2021-09-30] MEDS: FIDAXOMICIN 200 MG TAB PO SCH ×2 (08:53→21:30)
[2021-09-30] MEDS: METOPROLOL TARTRATE 25 MG TAB PO SCH ×2 (08:54→21:28)
[2021-09-30] MEDS: POTASSIUM CHLORIDE CRTAB 20 MEQ TABCR PO SCH (08:54)
[2021-09-30] MEDS: predniSONE 1 MG TAB PO SCH (08:54)
[2021-09-30] MEDS: FOLIC ACID 1 MG TAB PO SCH (08:54)
[2021-09-30] MEDS: ROFLUMILAST 500 MCG TAB PO SCH (08:54)
[2021-09-30] MEDS: THIAMINE HCL 100 MG TAB PO SCH (08:55)
[2021-09-30] MEDS: UMECLIDINIUM BROMIDE 62.5MCG/BLISTER 7 PUFFS/INHALER INH SCH (08:55)
--- NOTE | 2021-09-30 09:16 | XRay Report ---
KUB CLINICAL HISTORY: C. difficile colitis. FINDINGS: An AP supine abdominal radiograph is compared to study dated 09/29/2021 and correlated with abdominal CT dated 09/27/2021. There is a nonobstructed abdominal bowel gas pattern. No evidence of in traperitoneal free air is seen on this supine image. Mucosal edema is suggested involving the colon. There is no radiographic evidence of megacolon. A pill fragment projects over the right lower quadran t. There are no abnormal abdominal calcifications. The skeletal structures are osteopenic and appear intact. There is moderate to advanced lumbosacral spondylosis. IMPRESSION: Nonobstructed abdominal bowel gas pattern with no radiographic evidence of megacolon. Electronically signed by: Drew Brooks M.D. 09/30/2021 9:15 AM
--- NOTE | 2021-09-30 09:46 | Gastroenterology Progress Note ---
Date of Service September 30, 2021 Assessment & Plan (1) C. difficile colitis: Plan: -Continue Dificid at present as diarrhea is improving -Abdominal xray reviewed, surgical consult appreciate; if worsening, agree that patient would benefit from a tertiary transfer Admission and Anticipated Discharge Date Admission Date: September 27, 2021 Subjective Patient is a 80 yo male with C diff. Xray from this AM indicates nonobstructed abdominal bowel gas pattern with no radiographic evidence of megacolon. He reports he has had improvement of his diarrhea. He notes 1 episode thus far this morning. He reports some abdominal pain & discomfort. Review of Systems Gastrointestinal: + abdominal pain and + diarrhea/loose stools (improving) Physical Exam Constitutional: well developed Respiratory: normal respiratory effort Cardiovascular: Rate/Rhythm: regular rate Gastrointestinal (Abdomen): Inspection/Auscultation: + abdomen distended and normal bowel sounds Percussion/Palpation: + abdomen tender Results & Data Results & Data ([facility]) Vital Signs (Past 12 Hours) Vital Signs Temp Pulse Pulse Resp BP Pulse Ox 09/30/21 07:27 55 L 09/30/21 07:00 36.2 C L 60 18 124/76 99 09/30/21 03:02 36.4 C 62 20 129/63 98 09/30/21 01:16 71 09/29/21 22:23 36.6 C 65 20 136/66 97 PG Care Time/CCT Total # of Minutes Spent Total Time Spent with Patient: Total time spent is greater than 50% in coordination of care (as documented) at patient's floor/unit and/or counseling patient: Coding Level of Care Code 58844 Subseq Hosp Care Lvl 3 Diagnoses C. difficile colitis A04.72
--- NOTE | 2021-09-30 12:27 | Surgery Progress Note ---
Date of Service September 30, 2021 Assessment & Plan (1) Steroid dependent: (2) C. difficile colitis: (3) Acute and chronic respiratory failure: (4) COPD exacerbation: Plan: 80-year-old gentleman presents with recurrent C. difficile. -afebrile - leukocytosis improved to 12k today - abdominal pain stable, not increasing - diarrhea frequency improving Plan: Continue current medical management. No surgical intervention required at this time Continue PO Dificid Continue full liquids encourage ambulation Once again given his multiple medical comorbidities, he would need to be transferred to a tertiary care center such as [facility] for definitive management if clinically worsens. Dr. Peralta was present during my examination and agrees with above. Admission and Anticipated Discharge Date Admission Date: September 27, 2021 Subjective abdominal pain is stable, not worse no nausea or vomiting tolerating full liquids diarrhea has improved, 15 times yesterday only twice so far today ambulating in room Physical Exam Constitutional: + thin and + cachectic; no acute distress Neck: normal visual inspection and trachea midline Respiratory: normal respiratory effort; no respiratory distress Gastrointestinal (Abdomen): Inspection/Auscultation: + abdomen distended (mild) and + visible herniation (umbilical hernia); + abnormal bowel sounds Percussion/Palpation: + abdomen tender (generalized) and abdomen soft; no guarding, abdomen not rigid and abdomen not firm Psychiatric: Orientation: alert and oriented x 3 Results & Data ([facility]) Vital Signs (Past 12 Hours) Vital Signs Temp Pulse Pulse Resp BP Pulse Ox Pulse Ox 09/30/21 11:25 90 09/30/21 11:00 36.3 C L 58 L 18 119/68 99 09/30/21 07:27 55 L 09/30/21 07:00 36.2 C L 60 18 124/76 99 09/30/21 03:02 36.4 C 62 20 129/63 98 09/30/21 01:16 71 Laboratory Results 09/30/21 09/30/21 Range/Units 06:16 06:16 WBC 14.77 H (4.8-10.8) K/uL RBC 3.32 L (4.7-6.1) M/uL Hgb 10.5 L (14.0-18.0) g/dL Hct 31.3 L (42-52) % MCV 94.3 (80-100) fL MCH 31.6 (25-34) pg MCHC 33.5 (32-36) g/dL RDW Std Deviation 45.9 (36.4-46.3) fL RDW Coeff of Julissa 13.2 (11.5-14.5) % Plt Count 230 (130-400) K/uL MPV 10.0 (7.4-10.4) fL Sodium 137 (136-145) mmol/L Potassium 3.5 (3.5-5.1) mmol/L Chloride 104 (98-107) mmol/L Carbon Dioxide 24 (21-32) mmol/L Anion Gap 9 (3-11) BUN 17 (6-23) mg/dl Creatinine 0.68 (0.6-1.4) mg/dl Est Cr Clr Drug Dosing 62.8 ml/min Est GFR ( Amer) 106.0 ml/min Est GFR (Non-Af Amer) 91.5 ml/min BUN/Creatinine Ratio 25.0 H (10-20) Glucose 70 (70-99(Fasting)) mg/dl Calcium 8.0 L (8.5-10.1) mg/dl Magnesium 1.8 (1.7-2.4) mg/dl Diagnostic Findings KUB CLINICAL HISTORY: C. difficile colitis. FINDINGS: An AP supine abdominal radiograph is compared to study dated 09/29/2021 and correlated with abdominal CT dated 09/27/2021. There is a nonobstructed abdominal bowel gas pattern. No evidence of intraperitoneal free air is seen on this supine image. Mucosal edema is suggested involving the colon. There is no radiographic evidence of megacolon. A pill fragment projects over the right lower quadrant. There are no abnormal abdominal calcifications. The skeletal structures are osteopenic and appear intact. There is moderate to advanced lumbosacral spondylosis. IMPRESSION: Nonobstructed abdominal bowel gas pattern with no radiographic evidence of megacolon.
--- NOTE | 2021-09-30 21:08 | Hospitalist Progress Note ---
Date of Service September 30, 2021 Assessment & Plan (1) Sepsis: (2) C. difficile colitis: Plan: Present on admission with worsening diarrhea associated with mid abdominal tenderness Met sepsis criteria on admission with Tachycardia, Leukocytosis, elevate lactic acidosis and procalcitonin WBC on admission 24.3, lactic acid 4.7 Stool positive for C-diff CT abd/pelvis showed persistent proctocolitis consistent with history of C. difficile colitis. Moderate colonic wall thickening with pericolonic stranding and fluid. Pt just completed one week of PO Vanco outpatient Surgery on board Due to worsening lactate on admission there were concerned for toxic colitis. During the admission Surgery recommended to transfer to tertiary care facility, but pt declined the transfer Gastro on board recommended to continue Dificid 200mg BID for 10 days and di scontinued metronidazole KUB showed nonobstructed abdominal bowel gas pattern with no radiographic evidence of megacolon. 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 (6) Alcohol abuse: Plan: History of Alcohol abuse Denies any use of alcohol for about year (7) Severe protein-calorie malnutrition: Plan: BMI 16.6 Will encourage protein intake (8) DVT prophylaxis: Plan: Lovenox Full Code Admission and Anticipated Discharge Date Admission Date: September 27, 2021 Subjective Pt was seen and examined for follow up of Cdiff diarrhea Lying in bed with no acute distress Pt said that her diarrhea is getting better. She said that she only had 2 episodes of diarrhea so far today compare to about 15 yesterday She said that her pain is stable Spoke to his son and provided with update Denies any nausea, vomiting, palpitation, dizziness and SOB Review of Systems Review of Systems: All systems reviewed & are unremarkable except as noted in Subjective Physical Exam Physical Exam: General- No acute distress Head- atraumatic Eyes- PERRL, EOMI, ENT- oropharynx clear Neck- supple, no JVD Lungs- No wheezing Heart- regular rhythm; no murmur Abdomen- normal bowel sounds, +tenderness in mid abdomen ( around the umbilical area) Extremities- no calf tenderness Neuro- alert, oriented x 3; PERRL, EOMI; no facial palsy; no dysarthria Skin- warm & dry Results & Data Results & Data ([facility]) Vital Signs (Past 12 Hours) Vital Signs Temp Pulse Pulse Resp BP Pulse Ox Pulse Ox 09/30/21 19:09 36.2 C L 63 14 121/61 98 09/30/21 15:51 54 L 09/30/21 15:37 36.3 C L 57 L 14 117/63 100 09/30/21 11:25 90 09/30/21 11:00 36.3 C L 58 L 18 119/68 99
[2021-10-01] MEDS: PANTOprazole 40 MG TAB PO SCH (06:26)
[2021-10-01] MEDS: traMADol HCL 50 MG TABLET PO PRN (08:30)
[2021-10-01] MEDS: CYANOCOBALAMIN (B-12) 100 MCG TABLET PO SCH (08:31)
[2021-10-01] MEDS: ENOXAPARIN INJ 30 MG/0.3 ML SYR SQ SCH (08:31)
[2021-10-01] MEDS: METOPROLOL TARTRATE 25 MG TAB PO SCH ×2 (08:35→20:03)
[2021-10-01] MEDS: FAMOTIDINE 10 MG TABLET PO SCH ×2 (08:35→20:02)
[2021-10-01] MEDS: FLUTICASONE/VILANTEROL 100/25MCG 14 PUFFS/INHALER INH SCH (08:35)
[2021-10-01] MEDS: FIDAXOMICIN 200 MG TAB PO SCH ×2 (08:35→20:01)
[2021-10-01] MEDS: FOLIC ACID 1 MG TAB PO SCH (08:35)
[2021-10-01] MEDS: UMECLIDINIUM BROMIDE 62.5MCG/BLISTER 7 PUFFS/INHALER INH SCH (08:38)
[2021-10-01] MEDS: POTASSIUM CHLORIDE CRTAB 20 MEQ TABCR PO SCH (08:38)
[2021-10-01] MEDS: ROFLUMILAST 500 MCG TAB PO SCH (08:38)
[2021-10-01] MEDS: THIAMINE HCL 100 MG TAB PO SCH (08:38)
[2021-10-01] MEDS: predniSONE 1 MG TAB PO SCH (08:38)
--- NOTE | 2021-10-01 10:03 | Communication Note ---
Date of Service: October 01, 2021 Patient is a 80 yo male with C diff. Bowel frequency improving. Continue Dificid at this time. Continue to monitor WBC. If symptoms worsen, would require t ransfer to a tertiary center.
[2021-10-01 10:16] LABS: Hematocrit (blood only) 32.7 % (42-52); Mean Corpuscular Hemoglobin 31.3 pg (25-34); Mean Corpuscular Hgb Conc 33.6 g/dL (32-36); Mean Corpuscular Volume 93.2 fL (80-100); Mean Platelet Volume 9.8 fL (7.4-10.4); Platelet Count 262 K/uL (130-400); RDW Coefficient of Variation 13.4 % (11.5-14.5); RDW Standard Deviation 45.8 fL (36.4-46.3); Red Blood Count 3.51 M/uL (4.7-6.1); White Blood Count 13.61 K/uL (4.8-10.8)
[2021-10-01 10:40] LABS: BUN Creatinine Ratio 26.5 (10-20); Calcium 8.1 mg/dl (8.5-10.1); Creatinine Clr Calc Pharmacy 64.3 ml/min; Est GFR (Non-African American) 91.5 ml/min; Magnesium 1.5 mg/dl (1.7-2.4); Potassium 3.2 mmol/L (3.5-5.1)
[2021-10-01] MEDS ORDERED: POTASSIUM CHLORIDE CRTAB 20 MEQ TABCR PO STA (10:56)
[2021-10-01] MEDS: LACTATED RINGER'S 1,000 ML IV SCH (11:24)
[2021-10-01] MEDS: MAGNESIUM SULFATE / D5W 1 GM/100 ML BAG IV SCH ×2 (11:25→13:34)
[2021-10-01] MEDS ORDERED: KETOROLAC TROMETHAMINE 15 MG/ML VIAL IV ONE (12:28)
--- NOTE | 2021-10-01 18:15 | Hospitalist Progress Note ---
Date of Service October 01, 2021 Assessment & Plan (1) Sepsis: (2) C. difficile colitis: Plan: Present on admission with worsening diarrhea associated with mid abdominal tenderness Met sepsis criteria on admission with Tachycardia, Leukocytosis, elevate lactic acidosis and procalcitonin WBC on admission 24.3, lactic acid 4.7 Stool positive for C-diff CT abd/pelvis showed persistent proctocolitis consistent with history of C. difficile colitis. Moderate colonic wall thickening with pericolonic stranding and fluid. Pt just completed one week of PO Vanco outpatient Surgery on board Due to worsening lactate on admission there were concerned for toxic colitis. During the admission Surgery recommended to transfer to tertiary care facility, but pt declined the transfer Gastro on board recommended to continue Dificid 200mg BID for 10 days and di scontinued metronidazole KUB showed nonobstructed abdominal bowel gas pattern with no radiographic evidence of megacolon. 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 (6) Alcohol abuse: Plan: History of Alcohol abuse Denies any use of alcohol for about year (7) Severe protein-calorie malnutrition: Plan: BMI 17 Will encourage protein intake (8) DVT prophylaxis: Plan: Lovenox Full Code Admission and Anticipated Discharge Date Admission Date: September 27, 2021 Subjective Pt was seen and examined for follow up of Cdiff diarrhea Lying in bed with no acute distress Pt said that her diarrhea is getting better. Pt said that his pain slightly improves He continues to have tenderness Denies any nausea, vomiting, palpitation, dizziness and SOB Review of Systems Review of Systems: All systems reviewed & are unremarkable except as noted in Subjective Physical Exam Physical Exam: General- No acute distress Head- atraumatic Eyes- PERRL, EOMI, ENT- oropharynx clear Neck- supple, no JVD Lungs- No wheezing Heart- regular rhythm; no murmur Abdomen- normal bowel sounds, +tenderness in mid abdomen ( around the umbilical area) Extremities- no calf tenderness Neuro- alert, oriented x 3; PERRL, EOMI; no facial palsy; no dysarthria Skin- warm & dry Results & Data Results & Data ([facility]) Vital Signs (Past 12 Hours) Vital Signs Temp Pulse Pulse Pulse Resp BP Pulse Ox 10/01/21 16:28 52 L 10/01/21 14:55 36.2 C L 56 L 20 93/56 L 98 10/01/21 10:59 36.3 C L 62 20 117/55 L 99 10/01/21 09:00 56 L 10/01/21 07:30 36.4 C 60 20 127/53 L 99
--- NOTE | 2021-10-01 20:46 | Surgery Progress Note ---
Date of Service October 01, 2021 Assessment & Plan (1) Steroid dependent: (2) C. difficile colitis: Plan: 1) Steroid dependent: (2) C. difficile colitis: (3) Acute and chronic respiratory failure: (4) COPD exacerbation: Plan: 80-year-old gentleman presents with recurrent C. difficile. -afebrile - leukocytosis improved to 12k today - abdominal pain stable, not increasing - diarrhea frequency improving Plan: Continue current medical management. No surgical intervention required at this time Continue PO Dificid Continue full liquids encourage ambulation Once again given his multiple medical comorbidities, he would need to be transferred to a tertiary care center such as [facility] for definitive management if clinically worsens. (3) Acute and chronic respiratory failure: (4) COPD exacerbation: Plan: 80-year-old gentleman presents with recurrent C. difficile. -afebrile - leukocytosis improved to 12k today - abdominal pain stable, not increasing - diarrhea frequency improving Plan: Continue current medical management. No surgical intervention required at this time Continue PO Dificid Continue full liquids encourage ambulation Once again given his multiple medical comorbidities, he would need to be transferred to a tertiary care center such as [facility] for definitive management if clinically worsens. Dr. Peralta was present during my examination and agrees with above. Admission and Anticipated Discharge Date Admission Date: September 27, 2021 Subjective Pt was seen and examined for follow up of Cdiff diarrhea Lying in bed with no acute distress Pt said that her diarrhea is getting better. Pt said that his pain slightly improves He continues to have tenderness Denies any nausea, vomiting, palpitation, dizziness and SOB DR. Peralta, pt is stable, no fever, some diarrhea, mild abdominal pain, Physical Exam Constitutional: WD/WN, vitals as above Eyes: PERRL, conjunctivae normal, anicteric sclerae Neck: trachea midline, no thyromegaly Respiratory: normal respiratory effort, lungs clear to auscultation Cardiovascular: RRR, no murmur, no edema Gastrointestinal (Abdomen): soft, mild tenderness at periumbilical area, no rebound pain, BS +no distend Neurologic: patellar DTR's 2+ bilat, sensation intact Psychiatric: A+Ox3, euthymic affect Results & Data ([facility]) Vital Signs (Past 12 Hours) Vital Signs Temp Pulse Pulse Pulse Resp BP Pulse Ox 10/01/21 19:32 36.7 C 55 L 17 114/63 100 10/01/21 16:28 52 L 10/01/21 14:55 36.2 C L 56 L 20 93/56 L 98 10/01/21 10:59 36.3 C L 62 20 117/55 L 99 10/01/21 09:00 56 L Laboratory Results Abnormal lab results 10/01/21 10/01/21 Range/Units 09:47 09:47 WBC 13.61 H (4.8-10.8) K/uL RBC 3.51 L (4.7-6.1) M/uL Hgb 11.0 L (14.0-18.0) g/dL Hct 32.7 L (42-52) % Potassium 3.2 L (3.5-5.1) mmol/L Anion Gap 13 H (3-11) BUN/Creatinine Ratio 26.5 H (10-20) Glucose 67 L (70-99(Fasting)) mg/dl Calcium 8.1 L (8.5-10.1) mg/dl Magnesium 1.5 L (1.7-2.4) mg/dl
[2021-10-02] MEDS: PANTOprazole 40 MG TAB PO SCH (06:17)
[2021-10-02 06:28] LABS: Hematocrit (blood only) 31.7 % (42-52); Hemoglobin 10.7 g/dL (14.0-18.0); Mean Corpuscular Hemoglobin 31.3 pg (25-34); Mean Corpuscular Hgb Conc 33.8 g/dL (32-36); Mean Corpuscular Volume 92.7 fL (80-100); Mean Platelet Volume 9.8 fL (7.4-10.4); Platelet Count 272 K/uL (130-400); RDW Coefficient of Variation 13.3 % (11.5-14.5); RDW Standard Deviation 45.1 fL (36.4-46.3); Red Blood Count 3.42 M/uL (4.7-6.1); White Blood Count 9.12 K/uL (4.8-10.8)
[2021-10-02 06:33] LABS: BUN Creatinine Ratio 25.9 (10-20); Calcium 7.7 mg/dl (8.5-10.1); Creatinine Clr Calc Pharmacy 75.4 ml/min; Est GFR (African American) 113.2 ml/min; Est GFR (Non-African American) 97.7 ml/min; Magnesium 1.7 mg/dl (1.7-2.4); Potassium 3.3 mmol/L (3.5-5.1)
[2021-10-02] MEDS ORDERED: POTASSIUM CHLORIDE CRTAB 20 MEQ TABCR PO STA (07:52)
[2021-10-02] MEDS: LACTATED RINGER'S 1,000 ML IV SCH (08:15)
[2021-10-02] MEDS: UMECLIDINIUM BROMIDE 62.5MCG/BLISTER 7 PUFFS/INHALER INH SCH (08:16)
[2021-10-02] MEDS: POTASSIUM CHLORIDE CRTAB 20 MEQ TABCR PO SCH (08:16)
[2021-10-02] MEDS: FLUTICASONE/VILANTEROL 100/25MCG 14 PUFFS/INHALER INH SCH (08:16)
[2021-10-02] MEDS: FIDAXOMICIN 200 MG TAB PO SCH ×2 (08:31→21:33)
[2021-10-02] MEDS: traMADol HCL 50 MG TABLET PO PRN (08:31)
[2021-10-02] MEDS: CYANOCOBALAMIN (B-12) 100 MCG TABLET PO SCH (08:32)
[2021-10-02] MEDS: ENOXAPARIN INJ 30 MG/0.3 ML SYR SQ SCH (08:32)
[2021-10-02] MEDS: ROFLUMILAST 500 MCG TAB PO SCH (08:32)
[2021-10-02] MEDS: THIAMINE HCL 100 MG TAB PO SCH (08:32)
[2021-10-02] MEDS: FOLIC ACID 1 MG TAB PO SCH (08:32)
[2021-10-02] MEDS: predniSONE 1 MG TAB PO SCH (08:32)
[2021-10-02] MEDS: METOPROLOL TARTRATE 25 MG TAB PO SCH ×2 (08:33→21:25)
[2021-10-02] MEDS: FAMOTIDINE 10 MG TABLET PO SCH ×2 (08:33→21:24)
[2021-10-02] MEDS ORDERED: KETOROLAC TROMETHAMINE 15 MG/ML VIAL IV PRN (09:37)
--- NOTE | 2021-10-02 13:20 | Surgery Progress Note ---
Date of Service October 02, 2021 Assessment & Plan (1) Steroid dependent: (2) C. difficile colitis: Plan: 1) Steroid dependent: (2) C. difficile colitis: (3) Acute and chronic respiratory failure: (4) COPD exacerbation: Plan: (3) Acute and chronic respiratory failure: (4) COPD exacerbation: Plan: 80-year-old gentleman presents with recurrent C. difficile. -afebrile - leukocytosis resolved - abdominal pain stable, not increasing - diarrhea frequency improving Plan: Continue current medical management. No surgical intervention required at this time Continue PO Dificid Okay from surgical standpoint to advance diet to low fiber encourage ambulation Once again given his multiple medical comorbidities, he would need to be transferred to a tertiary care center such as [facility] for definitive management if clinically worsens. Our services are signing off please call with questions or concerns Dr. Peralta was present during my examination and agrees with above Admission and Anticipated Discharge Date Admission Date: September 27, 2021 Subjective Feeling about the same today Abdominal pain is about the same had a lot of cramping abdominal pain this morning Has not had any bowel movements yet so far today and diarrhea continued to decrease yesterday No nausea no vomiting Tolerating full liquids Physical Exam Constitutional: + thin and + cachectic; no acute distress Neck: normal visual inspection and trachea midline Respiratory: normal respiratory effort; no respiratory distress Gastrointestinal (Abdomen): Inspection/Auscultation: abdomen normal to inspection, + abdomen distended (Mild), normal bowel sounds and + visible herniation (Umbilical hernia) Percussion/Palpation: + abdomen tender (Generalized) and abdomen soft; no guarding, abdomen not rigid and abdomen not firm Skin: no rashes, warm and dry Psychiatric: A+Ox3, euthymic affect Results & Data ([facility]) Vital Signs (Past 12 Hours) Vital Signs Temp Pulse Pulse Pulse Resp BP Pulse Ox 10/02/21 11:27 36.4 C L 56 L 20 118/68 99 10/02/21 08:36 62 10/02/21 07:31 36.2 C L 57 L 18 136/71 100 10/02/21 07:04 50 L 10/02/21 02:48 36.3 C L 65 18 119/65 94 Laboratory Results 10/02/21 10/02/21 Range/Units 05:41 05:41 WBC 9.12 (4.8-10.8) K/uL RBC 3.42 L (4.7-6.1) M/uL Hgb 10.7 L (14.0-18.0) g/dL Hct 31.7 L (42-52) % MCV 92.7 (80-100) fL MCH 31.3 (25-34) pg MCHC 33.8 (32-36) g/dL RDW Std Deviation 45.1 (36.4-46.3) fL RDW Coeff of Julissa 13.3 (11.5-14.5) % Plt Count 272 (130-400) K/uL MPV 9.8 (7.4-10.4) fL Sodium 139 (136-145) mmol/L Potassium 3.3 L (3.5-5.1) mmol/L Chloride 107 (98-107) mmol/L Carbon Dioxide 26 (21-32) mmol/L Anion Gap 6 (3-11) BUN 15 (6-23) mg/dl Creatinine 0.58 L (0.6-1.4) mg/dl Est Cr Clr Drug Dosing 75.4 ml/min Est GFR ( Amer) 113.2 ml/min Est GFR (Non-Af Amer) 97.7 ml/min BUN/Creatinine Ratio 25.9 H (10-20) Glucose 89 (70-99(Fasting)) mg/dl Calcium 7.7 L (8.5-10.1) mg/dl Magnesium 1.7 (1.7-2.4) mg/dl
--- NOTE | 2021-10-02 20:13 | Hospitalist Progress Note ---
Date of Service October 02, 2021 Assessment & Plan (1) Sepsis: (2) C. difficile colitis: Plan: Present on admission with worsening diarrhea associated with mid abdominal tenderness Met sepsis criteria on admission with Tachycardia, Leukocytosis, elevate lactic acidosis and procalcitonin WBC on admission 24.3, lactic acid 4.7 Stool positive for C-diff CT abd/pelvis showed persistent proctocolitis consistent with history of C. difficile colitis. Moderate colonic wall thickening with pericolonic stranding and fluid. Pt just completed one week of PO Vanco outpatient Surgery on board Due to worsening lactate on admission there were concerned for toxic colitis. During the admission Surgery recommended to transfer to tertiary care facility, but pt declined the transfer Gastro on board recommended to continue Dificid 200mg BID for 10 days and di scontinued metronidazole KUB showed nonobstructed abdominal bowel gas pattern with no radiographic evidence of megacolon. Blood cx and urine cx no growth Pt was started on Zosyn, that was discontinued WBC back to normal If pt declines, WBC increases or shows sign of toxic megacolon then would transfer to tertiary center for further evaluation and tx Tolerated full liquid diet No surgical intervention required at this time Okay from surgical standpoint to advance diet to low fiber (3) Acute urinary retention: Plan: Pt has been voinding UA showed no sign of infection but seems UA was collected few hours after receiving Zosyn urine cx no growth Zosyn discontinued (4) Chronic respiratory failure with hypoxia: Plan: 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 (6) Alcohol abuse: Plan: History of Alcohol abuse Denies any use of alcohol for about year (7) Severe protein-calorie malnutrition: Plan: BMI 17 Will encourage protein intake (8) DVT prophylaxis: Plan: Lovenox Full Code Admission and Anticipated Discharge Date Admission Date: September 27, 2021 Subjective Pt was seen and examined for follow up of Cdiff diarrhea Lying in bed with no acute distress Pain and diarrhea are improved Denies any nausea, vomiting, palpitation, dizziness and SOB Review of Systems Review of Systems: All systems reviewed & are unremarkable except as noted in Subjective Physical Exam Physical Exam: General- No acute distress Head- atraumatic Eyes- PERRL, EOMI, ENT- oropharynx clear Neck- supple, no JVD Lungs- No wheezing Heart- regular rhythm; no murmur Abdomen- normal bowel sounds, +mild tenderness in mid abdomen ( around the umbilical area) Extremities- no calf tenderness Neuro- alert, oriented x 3; PERRL, EOMI; no facial palsy; no dysarthria Skin- warm & dry Results & Data Results & Data ([facility]) Vital Signs (Past 12 Hours) Vital Signs Temp Pulse Pulse Pulse Resp BP Pulse Ox 10/02/21 18:16 36.1 C L 57 L 20 113/53 L 100 10/02/21 15:56 36.2 C L 57 L 18 143/67 H 100 10/02/21 14:54 56 L 10/02/21 11:27 36.4 C L 56 L 20 118/68 99 10/02/21 08:36 62
[2021-10-03] MEDS: PANTOprazole 40 MG TAB PO SCH (06:03)
[2021-10-03] MEDS: METOPROLOL TARTRATE 25 MG TAB PO SCH ×2 (07:29→21:24)
[2021-10-03] MEDS: POTASSIUM CHLORIDE CRTAB 20 MEQ TABCR PO SCH (07:33)
[2021-10-03] MEDS: ACETAMINOPHEN 325 MG TAB PO PRN (07:33)
[2021-10-03] MEDS: FIDAXOMICIN 200 MG TAB PO SCH ×2 (07:34→21:35)
[2021-10-03] MEDS: FAMOTIDINE 10 MG TABLET PO SCH ×2 (07:34→21:24)
[2021-10-03] MEDS: CYANOCOBALAMIN (B-12) 100 MCG TABLET PO SCH (07:34)
[2021-10-03] MEDS: FOLIC ACID 1 MG TAB PO SCH (07:34)
[2021-10-03] MEDS: THIAMINE HCL 100 MG TAB PO SCH (07:34)
[2021-10-03] MEDS: ROFLUMILAST 500 MCG TAB PO SCH (07:35)
[2021-10-03] MEDS: ENOXAPARIN INJ 30 MG/0.3 ML SYR SQ SCH (07:35)
[2021-10-03] MEDS: UMECLIDINIUM BROMIDE 62.5MCG/BLISTER 7 PUFFS/INHALER INH SCH (07:35)
[2021-10-03] MEDS: FLUTICASONE/VILANTEROL 100/25MCG 14 PUFFS/INHALER INH SCH (07:35)
[2021-10-03] MEDS: predniSONE 1 MG TAB PO SCH (07:36)
[2021-10-03 08:08] LABS: Hematocrit (blood only) 31.8 % (42-52); Hemoglobin 10.3 g/dL (14.0-18.0); Mean Corpuscular Hemoglobin 31.1 pg (25-34); Mean Corpuscular Hgb Conc 32.4 g/dL (32-36); Mean Corpuscular Volume 96.1 fL (80-100); Mean Platelet Volume 9.8 fL (7.4-10.4); Platelet Count 291 K/uL (130-400); RDW Coefficient of Variation 13.3 % (11.5-14.5); Red Blood Count 3.31 M/uL (4.7-6.1); White Blood Count 7.71 K/uL (4.8-10.8)
[2021-10-03 08:22] LABS: BUN Creatinine Ratio 17.7 (10-20); Creatinine Clr Calc Pharmacy 70.6 ml/min; Est GFR (African American) 110.1 ml/min; Magnesium 1.5 mg/dl (1.7-2.4); Potassium 3.4 mmol/L (3.5-5.1)
[2021-10-03] MEDS ORDERED: POTASSIUM CHLORIDE CRTAB 20 MEQ TABCR PO STA (09:30)
[2021-10-03] MEDS: LACTATED RINGER'S 1,000 ML IV SCH (09:50)
--- NOTE | 2021-10-03 17:23 | Hospitalist Progress Note ---
Date of Service October 03, 2021 Assessment & Plan (1) Sepsis: (2) C. difficile colitis: Plan: Present on admission with worsening diarrhea associated with mid abdominal tenderness Met sepsis criteria on admission with Tachycardia, Leukocytosis, elevate lactic acidosis and procalcitonin WBC on admission 24.3, lactic acid 4.7 Stool positive for C-diff CT abd/pelvis showed persistent proctocolitis consistent with history of C. difficile colitis. Moderate colonic wall thickening with pericolonic stranding and fluid. Pt just completed one week of PO Vanco outpatient Due to worsening lactate on admission there were concerned for toxic colitis.-Surgery was consulted During the admission Surgery recommended to transfer to tertiary care facility, but pt declined the transfer Gastro on board recommended to continue Dificid 200mg BID for 10 days and discontinued metronidazole KUB showed nonobstructed abdominal bowel gas pattern with no radiographic evidence of megacolon. Blood cx and urine cx no growth Pt was started on Zosyn, that was discontinued WBC back to normal If pt declines, WBC increases or shows sign of toxic megacolon then would transfer to tertiary center for further evaluation and tx Tolerated full liquid diet No surgical intervention required at this time Has been tolerating clear liquids and will continue that for now Will start advancing diet with improvement of the abdominal pain and diarrhea (3) Acute urinary retention: Plan: Pt has been voinding UA showed no sign of infection but seems UA was collected few hours after receiving Zosyn urine cx no growth Zosyn discontinued (4) Chronic respiratory failure with hypoxia: Plan: 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 (6) Alcohol abuse: Plan: History of Alcohol abuse Denies any use of alcohol for about year (7) Severe protein-calorie malnutrition: Plan: BMI 17 Will encourage protein intake (8) DVT prophylaxis: Plan: Lovenox Full Code Admission and Anticipated Discharge Date Admission Date: September 27, 2021 Subjective 10/03/2021 The patient was seen and examined in medical telemetry unit He has been complaining of abdominal pain like a band the lower abdomen Still having diarrhea so for 2 times during my examination at around 10 AM Denies any shortness of breath, palpitation or chest pain No fever and no chills Review of Systems Review of Systems: All systems reviewed and are unremarkable except as noted below Physical Exam Physical Exam: Lying in bed with minimal distress due to abdominal pain Constitutional: + ill appearing and average body habitus Eyes: PERRL, conjunctivae normal, anicteric sclerae ENMT: external ear and nose normal, oropharynx normal Neck: trachea midline, no thyromegaly Respiratory: no respiratory distress Auscultation: + diminished lung sounds and + crackles (Minimal crackles at the bases) Cardiovascular: Rate/Rhythm: regular rate, regular rhythm and + bradycardic Heart Sounds: normal S1 and normal S2; no murmur Extremities: no edema Gastrointestinal (Abdomen): Inspection/Auscultation: + abdomen distended (Minimal distended at the mid abdomen) and normal bowel sounds Percussion/Palpation: + abdomen tender (Lower quadrants) and abdomen soft Musculoskeletal: No acute arthritis in any joint Neurologic: Generally weak but alert, awake and oriented x3 Results & Data Results & Data ([facility]) Vital Signs (Past 12 Hours) Vital Signs Temp Pulse Pulse Resp BP Pulse Ox 10/03/21 15:56 36.4 C 57 L 22 123/65 99 10/03/21 11:15 36.4 C L 62 22 130/70 99 10/03/21 07:30 36.4 C L 60 20 134/72 99 Laboratory Results Short CBC 10/03/21 Range/Units 07:22 WBC 7.71 (4.8-10.8) K/uL Hgb 10.3 L (14.0-18.0) g/dL Hct 31.8 L (42-52) % Plt Count 291 (130-400) K/uL BMP 10/03/21 07:22 Sodium 140 Potassium 3.4 L Chloride 108 H Carbon Dioxide 28 BUN 11 Creatinine 0.62 Glucose 88 Calcium 8.0 L Medications Administered Current Inpatient Medications Acetaminophen (Acetaminophen 325 Mg Tab) 650 mg PO Q4H PRN PRN Reason: Pain or Fever Stop: 10/27/21 21:39 Last Admin: 10/03/21 07:33 Dose: 650 mg Documented by: Cyanocobalamin (Cyanocobalamin (B-12) 100 Mcg Tablet) 100 mcg PO DAILY CHILO Stop: 10/28/21 08:59 Last Admin: 10/03/21 07:34 Dose: 100 mcg Documented by: Enoxaparin Sodium (Enoxaparin Inj 30 Mg/0.3 Ml Syr) 30 mg SQ QAM [facility] Stop: 10/28/21 08:59 Last Admin: 10/03/21 07:35 Dose: 30 mg Documented by: Famotidine (Famotidine 10 Mg Tablet) 10 mg PO BID CHILO Stop: 10/28/21 08:59 Last Admin: 10/03/21 07:34 Dose: 10 mg Documented by: Fidaxomicin (Fidaxomicin 200 Mg Tab) 200 mg PO BID CHILO Stop: 10/08/21 00:14 Last Admin: 10/03/21 07:34 Dose: 200 mg Documented by: Fluticasone/Vilanterol (Fluticasone/Vilanterol 100/25mcg 14 Puffs/Inhaler) 1 puffs INH DAILY CHILO Stop: 10/28/21 08:59 Last Admin: 10/03/21 07:35 Dose: 1 puffs Documented by: Folic Acid (Folic Acid 1 Mg Tab) 1 mg PO QAM [facility] Stop: 10/28/21 08:59 Last Admin: 10/03/21 07:34 Dose: 1 mg Documented by: Ketorolac Tromethamine (Ketorolac Tromethamine 15 Mg/Ml Vial) 15 mg IV Q8H PRN PRN Reason: Pain Stop: 10/04/21 09:36 Last Admin: 10/02/21 09:54 Dose: 15 mg Documented by: Metoprolol Tartrate (Metoprolol Tartrate 25 Mg Tab) 12.5 mg PO BID CHILO Stop: 10/27/21 22:59 Last Admin: 10/03/21 07:29 Dose: Not Given Documented by: Ondansetron HCl (Ondansetron Inj 2 Mg/Ml 2 Ml Vial) 4 mg IV Q6H PRN PRN Reason: Nausea Stop: 10/27/21 21:39 Pantoprazole Sodium (Pantoprazole 40 Mg Tab) 40 mg PO DAILYBB [facility] Stop: 10/28/21 06:29 Last Admin: 10/03/21 06:03 Dose: 40 mg Documented by: Potassium Chloride (Potassium Chloride Crtab 20 Meq Tabcr) 20 meq PO DAILY CHILO Stop: 10/28/21 08:59 Last Admin: 10/03/21 07:33 Dose: 20 meq Documented by: Prednisone (Prednisone 1 Mg Tab) 1 mg PO QAM [facility] Stop: 10/28/21 08:59 Last Admin: 10/03/21 07:36 Dose: 1 mg Documented by: Roflumilast (Roflumilast 500 Mcg Tab) 500 mcg PO QAM [facility] Stop: 10/28/21 08:59 Last Admin: 10/03/21 07:35 Dose: 500 mcg Documented by: Thiamine HCl (Thiamine Hcl 100 Mg Tab) 100 mg PO QAM [facility] Stop: 10/28/21 08:59 Last Admin: 10/03/21 07:34 Dose: 100 mg Documented by: Tramadol HCl (Tramadol Hcl 50 Mg Tablet) 50 mg PO Q12H PRN PRN Reason: moderate to severe pain Stop: 10/30/21 19:14 Last Admin: 10/02/21 08:31 Dose: 50 mg Documented by: Umeclidinium [place] (Umeclidinium [place] 62.5mcg/Blister 7 Puffs/Inhaler) 1 puffs INH DAILY [facility] Stop: 10/28/21 08:59 Last Admin: 10/03/21 07:35 Dose: 1 puffs Documented by:
[2021-10-04] MEDS: PANTOprazole 40 MG TAB PO SCH (06:09)
[2021-10-04] MEDS: ENOXAPARIN INJ 30 MG/0.3 ML SYR SQ SCH (08:04)
[2021-10-04] MEDS: CYANOCOBALAMIN (B-12) 100 MCG TABLET PO SCH (08:04)
[2021-10-04] MEDS: UMECLIDINIUM BROMIDE 62.5MCG/BLISTER 7 PUFFS/INHALER INH SCH (08:05)
[2021-10-04] MEDS: FAMOTIDINE 10 MG TABLET PO SCH ×2 (08:05→21:21)
[2021-10-04] MEDS: FLUTICASONE/VILANTEROL 100/25MCG 14 PUFFS/INHALER INH SCH (08:05)
[2021-10-04] MEDS: FIDAXOMICIN 200 MG TAB PO SCH ×2 (08:05→21:21)
[2021-10-04] MEDS: METOPROLOL TARTRATE 25 MG TAB PO SCH ×2 (08:06→21:26)
[2021-10-04] MEDS: FOLIC ACID 1 MG TAB PO SCH (08:06)
[2021-10-04] MEDS: POTASSIUM CHLORIDE CRTAB 20 MEQ TABCR PO SCH (08:07)
[2021-10-04] MEDS: THIAMINE HCL 100 MG TAB PO SCH (08:07)
[2021-10-04] MEDS: predniSONE 1 MG TAB PO SCH (08:07)
[2021-10-04] MEDS: ROFLUMILAST 500 MCG TAB PO SCH (08:07)
[2021-10-04 08:58] LABS: Hematocrit (blood only) 34.7 % (42-52); Hemoglobin 11.3 g/dL (14.0-18.0); Mean Corpuscular Hemoglobin 30.6 pg (25-34); Mean Corpuscular Hgb Conc 32.6 g/dL (32-36); Mean Platelet Volume 9.4 fL (7.4-10.4); Platelet Count 292 K/uL (130-400); RDW Coefficient of Variation 13.5 % (11.5-14.5); RDW Standard Deviation 46.6 fL (36.4-46.3); Red Blood Count 3.69 M/uL (4.7-6.1); White Blood Count 7.25 K/uL (4.8-10.8)
[2021-10-04 09:13] LABS: ALC (manual) 1.92 K/uL (1.2-3.4); ANC (manual) 3.85 K/uL (1.4-6.5); Basophils # (manual) 0.07 K/uL (0-0.2); Basophils % (manual) 0.9 %; Eosinophils # (manual) 0.38 K/uL (0-0.5); Eosinophils % (manual) 5.3 %; Lymphocytes # (manual) 1.92 K/uL (1.2-3.4); Lymphocytes % (manual) 26.5 %; Monocytes % (manual) 12.4 %; Myelocytes # (manual) 0.13 K/uL (0-0); Myelocytes % (manual) 1.8 %; Neutrophils # (manual) 3.85 K/uL (1.4-6.5); Neutrophils % (manual) 53.1 %
[2021-10-04 09:48] LABS: BUN Creatinine Ratio 12.5 (10-20); Calcium 8.2 mg/dl (8.5-10.1); Creatinine Clr Calc Pharmacy 67.7 ml/min; Est GFR (African American) 108.7 ml/min; Est GFR (Non-African American) 93.8 ml/min; Magnesium 1.4 mg/dl (1.7-2.4); Potassium 3.6 mmol/L (3.5-5.1)
--- NOTE | 2021-10-04 16:05 | Hospitalist Progress Note ---
Date of Service October 04, 2021 Assessment & Plan (1) Sepsis: Plan: Secondary to C. difficile colitis (2) C. difficile colitis: Plan: Present on admission with worsening diarrhea associated with mid abdominal tenderness Met sepsis criteria on admission with Tachycardia, Leukocytosis, elevate lactic acidosis and procalcitonin WBC on admission 24.3, lactic acid 4.7 Stool positive for C-diff CT abd/pelvis showed persistent proctocolitis consistent with history of C. difficile colitis. Moderate colonic wall thickening with pericolonic stranding and fluid. Pt just completed one week of PO Vanco outpatient Due to worsening lactate on admission there were concerned for toxic colitis.- Surgery was consulted During the admission Surgery recommended to transfer to tertiary care facility, but pt declined the transfer Gastro on board recommended to continue Dificid 200mg BID for 10 days and discontinued metronidazole KUB showed nonobstructed abdominal bowel gas pattern with no radiographic evidence of megacolon. Blood cx and urine cx no growth Pt was started on Zosyn, that was discontinued WBC back to normal If pt declines, WBC increases or shows sign of toxic megacolon then would transfer to tertiary center for further evaluation and tx Tolerated full liquid diet No surgical intervention required at this time Has been tolerating clear liquids and will continue that for now Denies any more abdominal pain and diarrhea seems to be improving-we will advance diet as tolerated (3) Acute urinary retention: Plan: Pt has been voinding UA showed no sign of infection but seems UA was collected few hours after receiving Zosyn urine cx no growth Zosyn discontinued (4) Chronic respiratory failure with hypoxia: Plan: 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 (6) Alcohol abuse: Plan: History of Alcohol abuse Denies any use of alcohol for about year (7) Severe protein-calorie malnutrition: Plan: BMI 17 Will encourage protein intake (8) DVT prophylaxis: Plan: Lovenox Full Code Admission and Anticipated Discharge Date Admission Date: September 27, 2021 Subjective 10/03/2021 The patient was seen and examined in medical telemetry unit He has been complaining of abdominal pain like a band the lower abdomen Still having diarrhea so for 2 times during my examination at around 10 AM Denies any shortness of breath, palpitation or chest pain No fever and no chills 10/04/2021 The patient was seen and examined in medical telemetry unit He has been feeling much better with decreasing abdominal pain and decrease in diarrhea Denies any fever and or chills Will advance diet as tolerated Review of Systems Review of Systems: All systems reviewed and are unremarkable except as noted below Physical Exam Physical Exam: Lying in bed with minimal distress due to abdominal pain Constitutional: + ill appearing and average body habitus Eyes: PERRL, conjunctivae normal, anicteric sclerae ENMT: external ear and nose normal, oropharynx normal Neck: trachea midline, no thyromegaly Respiratory: no respiratory distress Auscultation: + diminished lung sounds and + crackles (Minimal crackles at the bases) Cardiovascular: Rate/Rhythm: regular rate, regular rhythm and + bradycardic Heart Sounds: normal S1 and normal S2; no murmur Extremities: no edema Gastrointestinal (Abdomen): Inspection/Auscultation: + abdomen distended (Minimal distended at the mid abdomen) and normal bowel sounds Percussion/Palpation: + abdomen tender (Lower quadrants) and abdomen soft Musculoskeletal: No acute arthritis involving any joint Neurologic: Alert, awake and oriented x3. Generally very weak and lethargic Psychiatric: A+Ox3, euthymic affect Lymphatic: no cervical or axillary lymphadenopathy Results & Data Results & Data ([facility]) Vital Signs (Past 12 Hours) Vital Signs Temp Pulse Pulse Resp BP Pulse Ox 10/04/21 15:39 36.4 C L 62 19 117/68 99 10/04/21 11:06 36.6 C 56 L 19 120/57 L 99 10/04/21 07:50 69 10/04/21 07:21 36.6 C 57 L 19 116/63 99 Laboratory Results Short CBC 10/04/21 Range/Units 08:40 WBC 7.25 (4.8-10.8) K/uL Hgb 11.3 L (14.0-18.0) g/dL Hct 34.7 L (42-52) % Plt Count 292 (130-400) K/uL BMP 10/04/21 08:40 Sodium 141 Potassium 3.6 Chloride 107 Carbon Dioxide 29 BUN 8 Creatinine 0.64 Glucose 86 Calcium 8.2 L Medications Administered Current Inpatient Medications Acetaminophen (Acetaminophen 325 Mg Tab) 650 mg PO Q4H PRN PRN Reason: Pain or Fever Stop: 10/27/21 21:39 Last Admin: 10/03/21 07:33 Dose: 650 mg Documented by: Cyanocobalamin (Cyanocobalamin (B-12) 100 Mcg Tablet) 100 mcg PO DAILY [facility] Stop: 10/28/21 08:59 Last Admin: 10/04/21 08:04 Dose: 100 mcg Documented by: Enoxaparin Sodium (Enoxaparin Inj 30 Mg/0.3 Ml Syr) 30 mg SQ QAM [facility] Stop: 10/28/21 08:59 Last Admin: 10/04/21 08:04 Dose: 30 mg Documented by: Famotidine (Famotidine 10 Mg Tablet) 10 mg PO BID [facility] Stop: 10/28/21 08:59 Last Admin: 10/04/21 08:05 Dose: 10 mg Documented by: Fidaxomicin (Fidaxomicin 200 Mg Tab) 200 mg PO BID [facility] Stop: 10/08/21 00:14 Last Admin: 10/04/21 08:05 Dose: 200 mg Documented by: Fluticasone/Vilanterol (Fluticasone/Vilanterol 100/25mcg 14 Puffs/Inhaler) 1 puffs INH DAILY [facility] Stop: 10/28/21 08:59 Last Admin: 10/04/21 08:05 Dose: 1 puffs Documented by: Folic Acid (Folic Acid 1 Mg Tab) 1 mg PO QAM [facility] Stop: 10/28/21 08:59 Last Admin: 10/04/21 08:06 Dose: 1 mg Documented by: Metoprolol Tartrate (Metoprolol Tartrate 25 Mg Tab) 12.5 mg PO BID [facility] Stop: 10/27/21 22:59 Last Admin: 10/04/21 08:06 Dose: 12.5 mg Documented by: Ondansetron HCl (Ondansetron Inj 2 Mg/Ml 2 Ml Vial) 4 mg IV Q6H PRN PRN Reason: Nausea Stop: 10/27/21 21:39 Pantoprazole Sodium (Pantoprazole 40 Mg Tab) 40 mg PO DAILYBB [facility] Stop: 10/28/21 06:29 Last Admin: 10/04/21 06:09 Dose: 40 mg Documented by: Potassium Chloride (Potassium Chloride Crtab 20 Meq Tabcr) 20 meq PO DAILY [facility] Stop: 10/28/21 08:59 Last Admin: 10/04/21 08:07 Dose: 20 meq Documented by: Prednisone (Prednisone 1 Mg Tab) 1 mg PO QAM [facility] Stop: 10/28/21 08:59 Last Admin: 10/04/21 08:07 Dose: 1 mg Documented by: Roflumilast (Roflumilast 500 Mcg Tab) 500 mcg PO QAM [facility] Stop: 10/28/21 08:59 Last Admin: 10/04/21 08:07 Dose: 500 mcg Documented by: Thiamine HCl (Thiamine Hcl 100 Mg Tab) 100 mg PO QAM [facility] Stop: 10/28/21 08:59 Last Admin: 10/04/21 08:07 Dose: 100 mg Documented by: Tramadol HCl (Tramadol Hcl 50 Mg Tablet) 50 mg PO Q12H PRN PRN Reason: moderate to severe pain Stop: 10/30/21 19:14 Last Admin: 10/02/21 08:31 Dose: 50 mg Documented by: Umeclidinium [place] (Umeclidinium [place] 62.5mcg/Blister 7 Puffs/Inhaler) 1 puffs INH DAILY [facility] Stop: 10/28/21 08:59 Last Admin: 10/04/21 08:05 Dose: 1 puffs Documented by:
[2021-10-05] MEDS: PANTOprazole 40 MG TAB PO SCH (06:29)
[2021-10-05] MEDS: METOPROLOL TARTRATE 25 MG TAB PO SCH ×2 (09:52→20:08)
[2021-10-05] MEDS: CYANOCOBALAMIN (B-12) 100 MCG TABLET PO SCH (09:55)
[2021-10-05] MEDS: THIAMINE HCL 100 MG TAB PO SCH (09:55)
[2021-10-05] MEDS: FOLIC ACID 1 MG TAB PO SCH (09:56)
[2021-10-05] MEDS: POTASSIUM CHLORIDE CRTAB 20 MEQ TABCR PO SCH (09:56)
[2021-10-05] MEDS: ROFLUMILAST 500 MCG TAB PO SCH (09:56)
[2021-10-05] MEDS: predniSONE 1 MG TAB PO SCH (09:56)
[2021-10-05] MEDS: FAMOTIDINE 10 MG TABLET PO SCH ×2 (09:56→21:31)
[2021-10-05] MEDS: UMECLIDINIUM BROMIDE 62.5MCG/BLISTER 7 PUFFS/INHALER INH SCH (09:57)
[2021-10-05] MEDS: FLUTICASONE/VILANTEROL 100/25MCG 14 PUFFS/INHALER INH SCH (09:58)
[2021-10-05] MEDS: FIDAXOMICIN 200 MG TAB PO SCH ×2 (10:12→20:07)
[2021-10-05] MEDS: ENOXAPARIN INJ 30 MG/0.3 ML SYR SQ SCH (10:12)
--- NOTE | 2021-10-05 14:27 | Hospitalist Progress Note ---
Date of Service October 05, 2021 Assessment & Plan (1) Sepsis: Plan: Secondary to C. difficile colitis (2) C. difficile colitis: Plan: Present on admission with worsening diarrhea associated with mid abdominal tenderness Met sepsis criteria on admission with Tachycardia, Leukocytosis, elevate lactic acidosis and procalcitonin WBC on admission 24.3, lactic acid 4.7 Stool positive for C-diff CT abd/pelvis showed persistent proctocolitis consistent with history of C. difficile colitis. Moderate colonic wall thickening with pericolonic stranding and fluid. Pt just completed one week of PO Vanco outpatient Due to worsening lactate on admission there were concerned for toxic colitis.- Surgery was consulted During the admission Surgery recommended to transfer to tertiary care facility, but pt declined the transfer Gastro on board recommended to continue Dificid 200mg BID for 10 days and discontinued metronidazole KUB showed nonobstructed abdominal bowel gas pattern with no radiographic evidence of megacolon. Blood cx and urine cx no growth Pt was started on Zosyn, that was discontinued WBC back to normal If pt declines, WBC increases or shows sign of toxic megacolon then would transfer to tertiary center for further evaluation and tx Tolerated full liquid diet No surgical intervention required at this time Has been tolerating clear liquids and will continue that for now Denies any more abdominal pain and diarrhea seems to be improving-we will advance diet as tolerated Condition is a little worse today-if abdominal swelling persist and increasing pain we will get KUB tomorrow Advised to take small amounts of food at 1 time (3) Acute urinary retention: Plan: Pt has been voinding UA showed no sign of infection but seems UA was collected few hours after receiving Zosyn urine cx no growth Zosyn discontinued (4) Chronic respiratory failure with hypoxia: Plan: 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 (6) Alcohol abuse: Plan: History of Alcohol abuse Denies any use of alcohol for about year (7) Severe protein-calorie malnutrition: Plan: BMI 17 Will encourage protein intake (8) DVT prophylaxis: Plan: Lovenox Full Code Admission and Anticipated Discharge Date Admission Date: September 27, 2021 Subjective 10/03/2021 The patient was seen and examined in medical telemetry unit He has been complaining of abdominal pain like a band the lower abdomen Still having diarrhea so for 2 times during my examination at around 10 AM Denies any shortness of breath, palpitation or chest pain No fever and no chills 10/04/2021 The patient was seen and examined in medical telemetry unit He has been feeling much better with decreasing abdominal pain and decrease in diarrhea Denies any fever and or chills Will advance diet as tolerated 10/05/2021 The patient was seen and examined in medical telemetry unit He is not so great today and complains to have abdominal pain with minimal distention without nausea and or vomiting Still having diarrhea and has had 4 times loose bowel movement since this morning Review of Systems Review of Systems: All systems reviewed and are unremarkable except as noted below Physical Exam Physical Exam: Lying in bed with minimal distress due to abdominal pain Constitutional: + ill appearing and average body habitus Eyes: PERRL, conjunctivae normal, anicteric sclerae ENMT: external ear and nose normal, oropharynx normal Neck: trachea midline, no thyromegaly Respiratory: no respiratory distress Auscultation: + diminished lung sounds and + crackles (Minimal crackles at the bases) Cardiovascular: Rate/Rhythm: regular rate, regular rhythm and + bradycardic Heart Sounds: normal S1 and normal S2; no murmur Extremities: no edema Gastrointestinal (Abdomen): Inspection/Auscultation: + abdomen distended (Minimal distended at the mid abdomen) and normal bowel sounds Percussion/Palpation: + abdomen tender (Lower quadrants) and abdomen soft Musculoskeletal: No acute arthritis in any joint Neurologic: Alert, awake and oriented x3. Generally very weak and lethargic Psychiatric: A+Ox3, euthymic affect Lymphatic: no cervical or axillary lymphadenopathy Results & Data Results & Data ([facility]) Vital Signs (Past 12 Hours) Vital Signs Temp Pulse Pulse Resp BP Pulse Ox 10/05/21 11:03 36.6 C 60 19 105/65 99 10/05/21 07:47 52 L 10/05/21 07:10 36.3 C L 52 L 19 129/73 100 10/05/21 03:39 37 C 56 L 16 122/76 97 Medications Administered Current Inpatient Medications Acetaminophen (Acetaminophen 325 Mg Tab) 650 mg PO Q4H PRN PRN Reason: Pain or Fever Stop: 10/27/21 21:39 Last Admin: 10/03/21 07:33 Dose: 650 mg Documented by: Cyanocobalamin (Cyanocobalamin (B-12) 100 Mcg Tablet) 100 mcg PO DAILY [facility] Stop: 10/28/21 08:59 Last Admin: 10/05/21 09:55 Dose: 100 mcg Documented by: Enoxaparin Sodium (Enoxaparin Inj 30 Mg/0.3 Ml Syr) 30 mg SQ QAM [facility] Stop: 10/28/21 08:59 Last Admin: 10/05/21 10:12 Dose: 30 mg Documented by: Famotidine (Famotidine 10 Mg Tablet) 10 mg PO BID [facility] Stop: 10/28/21 08:59 Last Admin: 10/05/21 09:56 Dose: 10 mg Documented by: Fidaxomicin (Fidaxomicin 200 Mg Tab) 200 mg PO BID [facility] Stop: 10/08/21 00:14 Last Admin: 10/05/21 10:12 Dose: 200 mg Documented by: Fluticasone/Vilanterol (Fluticasone/Vilanterol 100/25mcg 14 Puffs/Inhaler) 1 puffs INH DAILY [facility] Stop: 10/28/21 08:59 Last Admin: 10/05/21 09:58 Dose: 1 puffs Documented by: Folic Acid (Folic Acid 1 Mg Tab) 1 mg PO QAM [facility] Stop: 10/28/21 08:59 Last Admin: 10/05/21 09:56 Dose: 1 mg Documented by: Metoprolol Tartrate (Metoprolol Tartrate 25 Mg Tab) 12.5 mg PO BID [facility] Stop: 10/27/21 22:59 Last Admin: 10/05/21 09:52 Dose: Not Given Documented by: Ondansetron HCl (Ondansetron Inj 2 Mg/Ml 2 Ml Vial) 4 mg IV Q6H PRN PRN Reason: Nausea Stop: 10/27/21 21:39 Pantoprazole Sodium (Pantoprazole 40 Mg Tab) 40 mg PO DAILYBB [facility] Stop: 10/28/21 06:29 Last Admin: 10/05/21 06:29 Dose: 40 mg Documented by: Potassium Chloride (Potassium Chloride Crtab 20 Meq Tabcr) 20 meq PO DAILY [facility] Stop: 10/28/21 08:59 Last Admin: 10/05/21 09:56 Dose: 20 meq Documented by: Prednisone (Pred[facility] 1 Mg Tab) [facility] Stop: 10/28/21 08:59 Last Admin: 10/05/21 09:56 Dose: 1 mg Documented by: Roflumilast (Roflumilast 500 Mcg Tab) 500 mcg PO QAM [facility] Stop: 10/28/21 08:59 Last Admin: 10/05/21 09:56 Dose: 500 mcg Documented by: Thiamine HCl (Thiamine Hcl 100 Mg Tab) 100 mg PO [facility] Stop: 10/28/21 08:59 Last Admin: 10/05/21 09:55 Dose: 100 mg Documented by: Tramadol HCl (Tramadol Hcl 50 Mg Tablet) 50 mg PO Q12H PRN PRN Reason: moderate to severe pain Stop: 10/30/21 19:14 Last Admin: 10/02/21 08:31 Dose: 50 mg Documented by: Umeclidinium [place] (Umeclidinium [place] 62.5mcg/Blister 7 Puffs/Inhaler) 1 puffs INH DAILY [facility] Stop: 10/28/21 08:59 Last Admin: 10/05/21 09:57 Dose: 1 puffs Documented by:
[2021-10-05] MEDS: traMADol HCL 50 MG TABLET PO PRN (19:13)
[2021-10-06] MEDS: PANTOprazole 40 MG TAB PO SCH (05:50)
[2021-10-06 06:42] LABS: Basophils # (auto) 0.02 K/uL (0-0.2); Basophils % (auto) 0.3 %; Eosinophils # (auto) 0.24 K/uL (0-0.5); Eosinophils % (auto) 3.2 %; Hematocrit (blood only) 32.8 % (42-52); Hemoglobin 10.7 g/dL (14.0-18.0); Immature Granulocytes # (auto) 0.12 K/uL (0.00-0.02); Immature Granulocytes % (auto) 1.6 %; Lymphocytes # (auto) 2.77 K/uL (1.2-3.4); Lymphocytes % (auto) 36.5 %; Mean Corpuscular Hemoglobin 30.7 pg (25-34); Mean Corpuscular Hgb Conc 32.6 g/dL (32-36); Mean Corpuscular Volume 94.3 fL (80-100); Mean Platelet Volume 9.3 fL (7.4-10.4); Monocytes % (auto) 13.2 %; Neutrophils # (auto) 3.43 K/uL (1.4-6.5); Neutrophils % (auto) 45.2 %; Platelet Count 308 K/uL (130-400); RDW Coefficient of Variation 13.9 % (11.5-14.5); RDW Standard Deviation 47.7 fL (36.4-46.3); Red Blood Count 3.48 M/uL (4.7-6.1); White Blood Count 7.58 K/uL (4.8-10.8)
[2021-10-06 07:12] LABS: BUN Creatinine Ratio 14.7 (10-20); Calcium 8.4 mg/dl (8.5-10.1); Creatinine Clr Calc Pharmacy 63.3 ml/min; Est GFR (Non-African American) 91.5 ml/min; Magnesium 1.4 mg/dl (1.7-2.4); Phosphorus 3.3 mg/dl (2.5-4.9); Potassium 2.9 mmol/L (3.5-5.1)
[2021-10-06] MEDS ORDERED: POTASSIUM CHLORIDE CRTAB 20 MEQ TABCR PO STA (08:12)
[2021-10-06] MEDS: METOPROLOL TARTRATE 25 MG TAB PO SCH ×2 (08:39→20:42)
[2021-10-06] MEDS: CYANOCOBALAMIN (B-12) 100 MCG TABLET PO SCH (08:41)
[2021-10-06] MEDS: POTASSIUM CHLORIDE / WTR 10 MEQ/100 ML PLCT IV SCH ×2 (08:41→10:12)
[2021-10-06] MEDS: MAGNESIUM SULFATE / D5W 1 GM/100 ML BAG IV SCH ×2 (08:41→10:52)
[2021-10-06] MEDS: FOLIC ACID 1 MG TAB PO SCH (08:42)
[2021-10-06] MEDS: FAMOTIDINE 10 MG TABLET PO SCH ×2 (08:42→20:41)
[2021-10-06] MEDS: ENOXAPARIN INJ 30 MG/0.3 ML SYR SQ SCH (08:42)
[2021-10-06] MEDS: FLUTICASONE/VILANTEROL 100/25MCG 14 PUFFS/INHALER INH SCH (08:42)
[2021-10-06] MEDS: predniSONE 1 MG TAB PO SCH (08:43)
[2021-10-06] MEDS: UMECLIDINIUM BROMIDE 62.5MCG/BLISTER 7 PUFFS/INHALER INH SCH (08:43)
[2021-10-06] MEDS: POTASSIUM CHLORIDE CRTAB 20 MEQ TABCR PO SCH (08:43)
[2021-10-06] MEDS: THIAMINE HCL 100 MG TAB PO SCH (08:43)
[2021-10-06] MEDS: ROFLUMILAST 500 MCG TAB PO SCH (08:43)
[2021-10-06] MEDS: FIDAXOMICIN 200 MG TAB PO SCH ×2 (09:08→20:41)
--- NOTE | 2021-10-06 17:14 | Hospitalist Progress Note ---
Date of Service October 06, 2021 Assessment & Plan (1) Sepsis: Plan: Secondary to C. difficile colitis (2) C. difficile colitis: Plan: Present on admission with worsening diarrhea associated with mid abdominal tenderness Met sepsis criteria on admission with Tachycardia, Leukocytosis, elevate lactic acidosis and procalcitonin WBC on admission 24.3, lactic acid 4.7 Stool positive for C-diff CT abd/pelvis showed persistent proctocolitis consistent with history of C. difficile colitis. Moderate colonic wall thickening with pericolonic stranding and fluid. Pt just completed one week of PO Vanco outpatient Due to worsening lactate on admission there were concerned for toxic colitis.- Surgery was consulted During the admission Surgery recommended to transfer to tertiary care facility, but pt declined the transfer Gastro on board recommended to continue Dificid 200mg BID for 10 days and discontinued metronidazole KUB showed nonobstructed abdominal bowel gas pattern with no radiographic evidence of megacolon. Blood cx and urine cx no growth Pt was started on Zosyn, that was discontinued WBC back to normal If pt declines, WBC increases or shows sign of toxic megacolon then would transfer to tertiary center for further evaluation and tx Tolerated full liquid diet No surgical intervention required at this time Has been tolerating clear liquids and will continue that for now Denies any more abdominal pain and diarrhea seems to be improving-we will advance diet as tolerated Condition is a little worse today-if abdominal swelling persist and increasing pain we will get KUB tomorrow Very slow improvement of his condition-we will have reevaluation by follow up specialist May need to continue Dificid for a few more days/weeks Discussed with the brother in detail (3) Acute urinary retention: Plan: Pt has been voinding UA showed no sign of infection but seems UA was collected few hours after receiving Zosyn urine cx no growth Zosyn discontinued (4) Chronic respiratory failure with hypoxia: Plan: 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 (6) Alcohol abuse: Plan: History of Alcohol abuse Denies any use of alcohol for about year (7) Severe protein-calorie malnutrition: Plan: BMI 17 Will encourage protein intake (8) DVT prophylaxis: Plan: Lovenox Full Code Admission and Anticipated Discharge Date Admission Date: September 27, 2021 Subjective 10/03/2021 The patient was seen and examined in medical telemetry unit He has been complaining of abdominal pain like a band the lower abdomen Still having diarrhea so for 2 times during my examination at around 10 AM Denies any shortness of breath, palpitation or chest pain No fever and no chills 10/04/2021 The patient was seen and examined in medical telemetry unit He has been feeling much better with decreasing abdominal pain and decrease in diarrhea Denies any fever and or chills Will advance diet as tolerated 10/05/2021 The patient was seen and examined in medical telemetry unit He is not so great today and complains to have abdominal pain with minimal distention without nausea and or vomiting Still having diarrhea and has had 4 times loose bowel movement since this morning 10/07/2019 The patient was seen and examined in medical telemetry unit He has been complaining of moderate abdominal pain with minimal distention and has been ongoing diarrhea No fever, chills Denies any nausea and or vomiting Review of Systems Review of Systems: All systems reviewed and are unremarkable except as noted below Physical Exam Physical Exam: Lying in bed with minimal distress due to abdominal pain Constitutional: + ill appearing and average body habitus Eyes: PERRL, conjunctivae normal, anicteric sclerae ENMT: external ear and nose normal, oropharynx normal Neck: trachea midline, no thyromegaly Respiratory: no respiratory distress Auscultation: + diminished lung sounds and + crackles (Minimal crackles at the bases) Cardiovascular: Rate/Rhythm: regular rate, regular rhythm and + bradycardic Heart Sounds: normal S1 and normal S2; no murmur Extremities: no edema Gastrointestinal (Abdomen): Inspection/Auscultation: + abdomen distended (Minimal distended at the mid abdomen) and normal bowel sounds Percussion/Palpation: + abdomen tender (Lower quadrants) and abdomen soft Neurologic: Alert, awake and oriented x3. Generally weak and lethargic but no focal sensory deficit Psychiatric: A+Ox3, euthymic affect Lymphatic: no cervical or axillary lymphadenopathy Results & Data Results & Data ([facility]) Vital Signs (Past 12 Hours) Vital Signs Temp Pulse Resp BP Pulse Ox 10/06/21 15:21 36.3 C L 60 16 123/72 100 10/06/21 11:19 36.2 C L 54 L 16 133/67 100 10/06/21 07:43 36.9 C 54 L 16 118/67 100 Laboratory Results Short CBC 10/06/21 Range/Units 06:15 WBC 7.58 (4.8-10.8) K/uL Hgb 10.7 L (14.0-18.0) g/dL Hct 32.8 L (42-52) % Plt Count 308 (130-400) K/uL BMP 10/06/21 06:15 Sodium 144 Potassium 2.9 L Chloride 109 H Carbon Dioxide 30 BUN 10 Creatinine 0.68 Glucose 82 Calcium 8.4 L Medications Administered Current Inpatient Medications Acetaminophen (Acetaminophen 325 Mg Tab) 650 mg PO Q4H PRN PRN Reason: Pain or Fever Stop: 10/27/21 21:39 Last Admin: 10/03/21 07:33 Dose: 650 mg Documented by: Cyanocobalamin (Cyanocobalamin (B-12) 100 Mcg Tablet) 100 mcg PO DAILY [facility] Stop: 10/28/21 08:59 Last Admin: 10/06/21 08:41 Dose: 100 mcg Documented by: Enoxaparin Sodium (Enoxaparin Inj 30 Mg/0.3 Ml Syr) 30 mg SQ QAM [facility] Stop: 10/28/21 08:59 Last Admin: 10/06/21 08:42 Dose: Not Given Documented by: Famotidine (Famotidine 10 Mg Tablet) 10 mg PO BID [facility] Stop: 10/28/21 08:59 Last Admin: 10/06/21 08:42 Dose: 10 mg Documented by: Fidaxomicin (Fidaxomicin 200 Mg Tab) 200 mg PO BID [facility] Stop: 10/08/21 00:14 Last Admin: 10/06/21 09:08 Dose: 200 mg Documented by: Fluticasone/Vilanterol (Fluticasone/Vilanterol 100/25mcg 14 Puffs/Inhaler) 1 puffs INH DAILY [facility] Stop: 10/28/21 08:59 Last Admin: 10/06/21 08:42 Dose: 1 puffs Documented by: Folic Acid (Folic Acid 1 Mg Tab) 1 mg PO QAM [facility] Stop: 10/28/21 08:59 Last Admin: 10/06/21 08:42 Dose: 1 mg Documented by: Metoprolol Tartrate (Metoprolol Tartrate 25 Mg Tab) 12.5 mg PO BID [facility] Stop: 10/27/21 22:59 Last Admin: 10/06/21 08:39 Dose: Not Given Documented by: Ondansetron HCl (Ondansetron Inj 2 Mg/Ml 2 Ml Vial) 4 mg IV Q6H PRN PRN Reason: Nausea Stop: 10/27/21 21:39 Pantoprazole Sodium (Pantoprazole 40 Mg Tab) 40 mg PO DAILYBB [facility] Stop: 10/28/21 06:29 Last Admin: 10/06/21 05:50 Dose: 40 mg Documented by: Potassium Chloride (Potassium Chloride Crtab 20 Meq Tabcr) 20 meq PO DAILY [facility] Stop: 10/28/21 08:59 Last Admin: 10/06/21 08:43 Dose: 20 meq Documented by: Prednisone (Prednisone 1 Mg Tab) 1 mg PO QAM [facility] Stop: 10/28/21 08:59 Last Admin: 10/06/21 08:43 Dose: 1 mg Documented by: Roflumilast (Roflumilast 500 Mcg Tab) 500 mcg PO QAM [facility] Stop: 10/28/21 08:59 Last Admin: 10/06/21 08:43 Dose: 500 mcg Documented by: Thiamine HCl (Thiamine Hcl 100 Mg Tab) 100 mg PO QAM [facility] Stop: 10/28/21 08:59 Last Admin: 10/06/21 08:43 Dose: 100 mg Documented by: Tramadol HCl (Tramadol Hcl 50 Mg Tablet) 50 mg PO Q12H PRN PRN Reason: moderate to severe pain Stop: 10/30/21 19:14 Last Admin: 10/05/21 19:13 Dose: 50 mg Documented by: Umeclidinium [place] (Umeclidinium [place] 62.5mcg/Blister 7 Puffs/Inhaler) 1 puffs INH DAILY [facility] Stop: 10/28/21 08:59 Last Admin: 10/06/21 08:43 Dose: 1 puffs Documented by:
[2021-10-06] MEDS: ACETAMINOPHEN 325 MG TAB PO PRN (20:42)
[2021-10-07] MEDS ORDERED: LOPERAMIDE HCL 2 MG CAP PO STA (04:33)
[2021-10-07] MEDS: PANTOprazole 40 MG TAB PO SCH (06:04)
[2021-10-07 07:27] LABS: BUN Creatinine Ratio 12.9 (10-20); Calcium 8.3 mg/dl (8.5-10.1); Creatinine Clr Calc Pharmacy 63.1 ml/min; Est GFR (African American) 104.8 ml/min; Est GFR (Non-African American) 90.4 ml/min; Magnesium 1.7 mg/dl (1.7-2.4); Phosphorus 3.2 mg/dl (2.5-4.9); Potassium 3.3 mmol/L (3.5-5.1)
--- NOTE | 2021-10-07 09:04 | Communication Note ---
Date of Service: October 07, 2021 GI has been asked for further input on Mr. Abreu who has been treated with Dificid for C diff during this hospitalization. Patient reportedly with ongoing loose stools, though significantly improved. Would advise addition of Questran once daily and a probiotic. Can obtain an abdominal xray to rule out worsening as patient was previously evaluated for pos sible megacolon. Again, if worsening clinically, I would agree with general surgery to transfer to tertiary center and consideration of a 6 week taper of Vanco. Agree with AYSHA Aden as above Continue current therapy and supportive care Add Questran 4 g in 8 oz glass of water daily Add Florastor 500 mg by mouth twice daily.
[2021-10-07] MEDS ORDERED: CHOLESTYRAMINE LIGHT 4 GM PKT PO ONE (09:08)
[2021-10-07] MEDS: predniSONE 1 MG TAB PO SCH (09:34)
[2021-10-07] MEDS: METOPROLOL TARTRATE 25 MG TAB PO SCH ×2 (09:34→20:13)
[2021-10-07] MEDS: FAMOTIDINE 10 MG TABLET PO SCH ×2 (09:35→20:14)
[2021-10-07] MEDS: CYANOCOBALAMIN (B-12) 100 MCG TABLET PO SCH (09:35)
[2021-10-07] MEDS: FOLIC ACID 1 MG TAB PO SCH (09:35)
[2021-10-07] MEDS: ROFLUMILAST 500 MCG TAB PO SCH (09:35)
[2021-10-07] MEDS: THIAMINE HCL 100 MG TAB PO SCH (09:36)
[2021-10-07] MEDS: ENOXAPARIN INJ 30 MG/0.3 ML SYR SQ SCH (09:36)
[2021-10-07] MEDS: POTASSIUM CHLORIDE CRTAB 20 MEQ TABCR PO SCH (09:36)
[2021-10-07] MEDS: UMECLIDINIUM BROMIDE 62.5MCG/BLISTER 7 PUFFS/INHALER INH SCH (09:37)
[2021-10-07] MEDS: FLUTICASONE/VILANTEROL 100/25MCG 14 PUFFS/INHALER INH SCH (09:38)
[2021-10-07] MEDS: SACCHAROMYCES BOULARDII 250 MG CAP PO SCH (10:24)
[2021-10-07] MEDS: FIDAXOMICIN 200 MG TAB PO SCH ×2 (10:24→20:14)
[2021-10-07] MEDS: POTASSIUM CHLORIDE / WTR 10 MEQ/100 ML PLCT IV SCH ×2 (10:25→12:21)
--- NOTE | 2021-10-07 15:06 | Hospitalist Progress Note ---
Date of Service October 07, 2021 Assessment & Plan (1) Sepsis: Plan: Secondary to C. difficile colitis (2) C. difficile colitis: Plan: Present on admission with worsening diarrhea associated with mid abdominal tenderness Met sepsis criteria on admission with Tachycardia, Leukocytosis, elevate lactic acidosis and procalcitonin WBC on admission 24.3, lactic acid 4.7 Stool positive for C-diff CT abd/pelvis showed persistent proctocolitis consistent with history of C. difficile colitis. Moderate colonic wall thickening with pericolonic stranding and fluid. Pt just completed one week of PO Vanco outpatient Due to worsening lactate on admission there were concerned for toxic colitis.- Surgery was consulted During the admission Surgery recommended to transfer to tertiary care facility, but pt declined the transfer Gastro on board recommended to continue Dificid 200mg BID for 10 days and discontinued metronidazole KUB showed nonobstructed abdominal bowel gas pattern with no radiographic evidence of megacolon. Blood cx and urine cx no growth Pt was started on Zosyn, that was discontinued WBC back to normal If pt declines, WBC increases or shows sign of toxic megacolon then would transfer to tertiary center for further evaluation and tx Tolerated full liquid diet No surgical intervention required at this time Has been tolerating clear liquids and will continue that for now Denies any more abdominal pain and diarrhea seems to be improving-we will advance diet as tolerated Condition is a little worse today-if abdominal swelling persist and increasing pain we will get KUB tomorrow Very slow improvement of his condition-we will have reevaluation by clinching machine operator May need to continue Dificid for a few more days/weeks Discussed with the brother in detail Appreciate GI input and reevaluation Not yet ready to be discharged-diet advanced. 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 (6) Alcohol abuse: Plan: History of Alcohol abuse Denies any use of alcohol for about year (7) Severe protein-calorie malnutrition: Plan: BMI 17 Will encourage protein intake (8) DVT prophylaxis: Plan: Lovenox Full Code Admission and Anticipated Discharge Date Admission Date: September 27, 2021 Subjective 10/03/2021 The patient was seen and examined in medical telemetry unit He has been complaining of abdominal pain like a band the lower abdomen Still having diarrhea so for 2 times during my examination at around 10 AM Denies any shortness of breath, palpitation or chest pain No fever and no chills 10/04/2021 The patient was seen and examined in medical telemetry unit He has been feeling much better with decreasing abdominal pain and decrease in diarrhea Denies any fever and or chills Will advance diet as tolerated 10/05/2021 The patient was seen and examined in medical telemetry unit He is not so great today and complains to have abdominal pain with minimal distention without nausea and or vomiting Still having diarrhea and has had 4 times loose bowel movement since this morning 10/06/2021 The patient was seen and examined in medical telemetry unit He has been complaining of moderate abdominal pain with minimal distention and has been ongoing diarrhea No fever, chills Denies any nausea and or vomiting 10/07/2021 The patient was seen and examined in medical telemetry unit Still complains to have abdominal discomfort and pain without nausea and or vo miting Has had a good bowel movement today and is still having mild diarrhea Review of Systems Review of Systems: All systems reviewed and are unremarkable except as noted below Neurologic: Generally very weak and lethargic Physical Exam Physical Exam: Lying in bed with minimal distress due to abdominal pain Constitutional: + ill appearing and average body habitus Eyes: PERRL, conjunctivae normal, anicteric sclerae ENMT: external ear and nose normal, oropharynx normal Neck: trachea midline, no thyromegaly Respiratory: no respiratory distress Auscultation: + diminished lung sounds and + crackles (Minimal crackles at the bases) Cardiovascular: Rate/Rhythm: regular rate, regular rhythm and + bradycardic Heart Sounds: normal S1 and normal S2; no murmur Extremities: no edema Gastrointestinal (Abdomen): Inspection/Auscultation: + abdomen distended (Minimal distended at the mid abdomen) and normal bowel sounds Percussion/Palpation: + abdomen tender (Lower quadrants) and abdomen soft Musculoskeletal: No acute arthritis in any joint Neurologic: Alert, awake and oriented x3. He remains very weak Psychiatric: A+Ox3, euthymic affect Lymphatic: no cervical or axillary lymphadenopathy Results & Data Results & Data ([facility]) Vital Signs (Past 12 Hours) Vital Signs Temp Pulse Pulse Resp BP BP Pulse Ox 10/07/21 10:56 36.5 C 76 18 108/68 97 10/07/21 07:57 51 L 10/07/21 06:59 36.9 C 55 L 20 124/69 100 10/07/21 04:00 36.8 C 57 L 22 161/69 H 97 Laboratory Results BMP 10/07/21 06:21 Sodium 142 Potassium 3.3 L Chloride 109 H Carbon Dioxide 30 BUN 9 Creatinine 0.70 Glucose 81 Calcium 8.3 L Medications Administered Current Inpatient Medications Acetaminophen (Acetaminophen 325 Mg Tab) 650 mg PO Q4H PRN PRN Reason: Pain or Fever Stop: 10/27/21 21:39 Last Admin: 10/06/21 20:42 Dose: 650 mg Documented by: Cyanocobalamin (Cyanocobalamin (B-12) 100 Mcg Tablet) 100 mcg PO DAILY [facility] Stop: 10/28/21 08:59 Last Admin: 10/07/21 09:35 Dose: 100 mcg Documented by: Enoxaparin Sodium (Enoxaparin Inj 30 Mg/0.3 Ml Syr) 30 mg SQ QAM [facility] Stop: 10/28/21 08:59 Last Admin: 10/07/21 09:36 Dose: 30 mg Documented by: Famotidine (Famotidine 10 Mg Tablet) 10 mg PO BID [facility] Stop: 10/28/21 08:59 Last Admin: 10/07/21 09:35 Dose: 10 mg Documented by: Fidaxomicin (Fidaxomicin 200 Mg Tab) 200 mg PO BID [facility] Stop: 10/08/21 00:14 Last Admin: 10/07/21 10:24 Dose: 200 mg Documented by: Fluticasone/Vilanterol (Fluticasone/Vilanterol 100/25mcg 14 Puffs/Inhaler) 1 puffs INH DAILY [facility] Stop: 10/28/21 08:59 Last Admin: 10/07/21 09:38 Dose: 1 puffs Documented by: Folic Acid (Folic Acid 1 Mg Tab) 1 mg PO QAM [facility] Stop: 10/28/21 08:59 Last Admin: 10/07/21 09:35 Dose: 1 mg Documented by: Metoprolol Tartrate (Metoprolol Tartrate 25 Mg Tab) 12.5 mg PO BID [facility] Stop: 10/27/21 22:59 Last Admin: 10/07/21 09:34 Dose: 12.5 mg Documented by: Ondansetron HCl (Ondansetron Inj 2 Mg/Ml 2 Ml Vial) 4 mg IV Q6H PRN PRN Reason: Nausea Stop: 10/27/21 21:39 Pantoprazole Sodium (Pantoprazole 40 Mg Tab) 40 mg PO DAILYBB [facility] Stop: 10/28/21 06:29 Last Admin: 10/07/21 06:04 Dose: 40 mg Documented by: Potassium Chloride (Potassium Chloride Crtab 20 Meq Tabcr) 20 meq PO DAILY [facility] Stop: 10/28/21 08:59 Last Admin: 10/07/21 09:36 Dose: 20 meq Documented by: Prednisone (Prednisone 1 Mg Tab) 1 mg PO QAM [facility] Stop: 10/28/21 08:59 Last Admin: 10/07/21 09:34 Dose: 1 mg Documented by: Roflumilast (Roflumilast 500 Mcg Tab) 500 mcg PO QAM [facility] Stop: 10/28/21 08:59 Last Admin: 10/07/21 09:35 Dose: 500 mcg Documented by: Saccharomyces Boulardii (Saccharomyces Boulardii 250 Mg Cap) 250 mg PO DAILY [facility] Stop: 11/06/21 09:14 Last Admin: 10/07/21 10:24 Dose: 250 mg Documented by: Thiamine HCl (Thiamine Hcl 100 Mg Tab) 100 mg PO QAM [facility] Stop: 10/28/21 08:59 Last Admin: 10/07/21 09:36 Dose: 100 mg Documented by: Tramadol HCl (Tramadol Hcl 50 Mg Tablet) 50 mg PO Q12H PRN PRN Reason: moderate to severe pain Stop: 10/30/21 19:14 Last Admin: 10/05/21 19:13 Dose: 50 mg Documented by: Umeclidinium [place] (Umeclidinium [place] 62.5mcg/Blister 7 Puffs/Inhaler) 1 puffs INH DAILY [facility] Stop: 10/28/21 08:59 Last Admin: 10/07/21 09:37 Dose: 1 puffs Documented by:
[2021-10-07] MEDS: traMADol HCL 50 MG TABLET PO PRN (20:13)
[2021-10-08] MEDS: PANTOprazole 40 MG TAB PO SCH (05:36)
[2021-10-08 06:13] LABS: Hematocrit (blood only) 29.9 % (42-52); Hemoglobin 9.9 g/dL (14.0-18.0); Mean Corpuscular Hgb Conc 33.1 g/dL (32-36); Mean Corpuscular Volume 93.7 fL (80-100); Mean Platelet Volume 9.2 fL (7.4-10.4); Platelet Count 278 K/uL (130-400); RDW Coefficient of Variation 13.9 % (11.5-14.5); Red Blood Count 3.19 M/uL (4.7-6.1); White Blood Count 7.95 K/uL (4.8-10.8)
[2021-10-08 06:33] LABS: BUN Creatinine Ratio 11.8 (10-20); Calcium 8.2 mg/dl (8.5-10.1); Creatinine Clr Calc Pharmacy 66.7 ml/min; Est GFR (Non-African American) 91.5 ml/min; Magnesium 1.5 mg/dl (1.7-2.4); Phosphorus 3.4 mg/dl (2.5-4.9); Potassium 3.4 mmol/L (3.5-5.1)
[2021-10-08 06:47] LABS: Basophils # (auto) 0.02 K/uL (0-0.2); Basophils % (auto) 0.3 %; Eosinophils # (auto) 0.25 K/uL (0-0.5); Eosinophils % (auto) 3.1 %; Immature Granulocytes # (auto) 0.04 K/uL (0.00-0.02); Immature Granulocytes % (auto) 0.5 %; Lymphocytes # (auto) 2.41 K/uL (1.2-3.4); Lymphocytes % (auto) 30.3 %; Monocytes # (auto) 0.64 K/uL (0.11-0.59); Monocytes % (auto) 8.1 %; Neutrophils # (auto) 4.59 K/uL (1.4-6.5); Neutrophils % (auto) 57.7 %
[2021-10-08] MEDS ORDERED: POTASSIUM CHLORIDE CRTAB 20 MEQ TABCR PO STA (08:54)
[2021-10-08] MEDS: FLUTICASONE/VILANTEROL 100/25MCG 14 PUFFS/INHALER INH SCH (09:05)
[2021-10-08] MEDS: UMECLIDINIUM BROMIDE 62.5MCG/BLISTER 7 PUFFS/INHALER INH SCH (09:06)
[2021-10-08] MEDS: METOPROLOL TARTRATE 25 MG TAB PO SCH ×2 (09:06→20:32)
[2021-10-08] MEDS: ENOXAPARIN INJ 30 MG/0.3 ML SYR SQ SCH (09:07)
[2021-10-08] MEDS: POTASSIUM CHLORIDE CRTAB 20 MEQ TABCR PO SCH (09:08)
[2021-10-08] MEDS: THIAMINE HCL 100 MG TAB PO SCH (09:08)
[2021-10-08] MEDS: ROFLUMILAST 500 MCG TAB PO SCH (09:08)
[2021-10-08] MEDS: FAMOTIDINE 10 MG TABLET PO SCH ×2 (09:08→20:32)
[2021-10-08] MEDS: CYANOCOBALAMIN (B-12) 100 MCG TABLET PO SCH (09:09)
[2021-10-08] MEDS: predniSONE 1 MG TAB PO SCH (09:09)
[2021-10-08] MEDS: SACCHAROMYCES BOULARDII 250 MG CAP PO SCH (09:09)
[2021-10-08] MEDS: FOLIC ACID 1 MG TAB PO SCH (09:09)
[2021-10-08] MEDS: MAGNESIUM SULFATE / D5W 1 GM/100 ML BAG IV SCH ×2 (10:07→12:49)
[2021-10-08] MEDS: POTASSIUM CHLORIDE / WTR 10 MEQ/100 ML PLCT IV SCH ×2 (10:08→11:20)
--- NOTE | 2021-10-08 17:21 | Hospitalist Progress Note ---
Date of Service October 08, 2021 Assessment & Plan (1) Sepsis: Plan: Secondary to C. difficile colitis (2) C. difficile colitis: Plan: Present on admission with worsening diarrhea associated with mid abdominal tenderness Met sepsis criteria on admission with Tachycardia, Leukocytosis, elevate lactic acidosis and procalcitonin WBC on admission 24.3, lactic acid 4.7 Stool positive for C-diff CT abd/pelvis showed persistent proctocolitis consistent with history of C. difficile colitis. Moderate colonic wall thickening with pericolonic stranding and fluid. Pt just completed one week of PO Vanco outpatient Due to worsening lactate on admission there were concerned for toxic colitis.- Surgery was consulted During the admission Surgery recommended to transfer to tertiary care facility, but pt declined the transfer Gastro on board recommended to continue Dificid 200mg BID for 10 days and discontinued metronidazole KUB showed nonobstructed abdominal bowel gas pattern with no radiographic evidence of megacolon. Blood cx and urine cx no growth Pt was started on Zosyn, that was discontinued WBC back to normal If pt declines, WBC increases or shows sign of toxic megacolon then would transfer to tertiary center for further evaluation and tx Tolerated full liquid diet No surgical intervention required at this time Has been tolerating clear liquids and will continue that for now Denies any more abdominal pain and diarrhea seems to be improving-we will advance diet as tolerated Condition is a little worse today-if abdominal swelling persist and increasing pain we will get KUB tomorrow Very slow improvement of his condition-we will have reevaluation by drupal architect May need to continue Dificid for a few more days/weeks Discussed with the brother in detail Appreciate GI input and reevaluation Not yet ready to be discharged-diet advanced. 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 (6) Alcohol abuse: Plan: History of Alcohol abuse Denies any use of alcohol for about year (7) Severe protein-calorie malnutrition: Plan: BMI 17 Will encourage protein intake (8) DVT prophylaxis: Plan: Lovenox Full Code Admission and Anticipated Discharge Date Admission Date: September 27, 2021 Subjective 10/03/2021 The patient was seen and examined in medical telemetry unit He has been complaining of abdominal pain like a band the lower abdomen Still having diarrhea so for 2 times during my examination at around 10 AM Denies any shortness of breath, palpitation or chest pain No fever and no chills 10/04/2021 The patient was seen and examined in medical telemetry unit He has been feeling much better with decreasing abdominal pain and decrease in diarrhea Denies any fever and or chills Will advance diet as tolerated 10/05/2021 The patient was seen and examined in medical telemetry unit He is not so great today and complains to have abdominal pain with minimal distention without nausea and or vomiting Still having diarrhea and has had 4 times loose bowel movement since this morning 10/06/2021 The patient was seen and examined in medical telemetry unit He has been complaining of moderate abdominal pain with minimal distention and has been ongoing diarrhea No fever, chills Denies any nausea and or vomiting 10/07/2021 The patient was seen and examined in medical telemetry unit Still complains to have abdominal discomfort and pain without nausea and or vomiting Has had a good bowel movement today and is still having mild diarrhea 10/08/2021 The patient was seen and examined in medical telemetry unit He has been feeling a little better today with decreasing abdominal distention and pain His diarrhea is persisting though Review of Systems Review of Systems: All systems reviewed and are unremarkable except as noted below Neurologic: Generally very weak and lethargic Physical Exam Physical Exam: Lying in bed with minimal distress due to abdominal pain Constitutional: + ill appearing and average body habitus Eyes: PERRL, conjunctivae normal, anicteric sclerae ENMT: external ear and nose normal, oropharynx normal Neck: trachea midline, no thyromegaly Respiratory: no respiratory distress Auscultation: + diminished lung sounds and + crackles (Minimal crackles at the bases) Cardiovascular: Rate/Rhythm: regular rate, regular rhythm and + bradycardic Heart Sounds: normal S1 and normal S2; no murmur Extremities: no edema Gastrointestinal (Abdomen): Inspection/Auscultation: + abdomen distended (Minimal distended at the mid abdomen) and normal bowel sounds Percussion/Palpation: + abdomen tender (Lower quadrants) and abdomen soft Musculoskeletal: No acute arthritis in any joint Neurologic: Alert, awake and oriented x3. Very weak and lethargic Psychiatric: A+Ox3, euthymic affect Lymphatic: no cervical or axillary lymphadenopathy Results & Data Results & Data ([facility]) Vital Signs (Past 12 Hours) Vital Signs Temp Pulse Pulse Resp BP Pulse Ox 10/08/21 15:24 53 L 10/08/21 11:33 36.3 C L 70 18 112/66 97 10/08/21 07:13 53 L 10/08/21 07:01 36.2 C L 55 L 22 120/56 L 97 Laboratory Results Short CBC 10/08/21 Range/Units 05:41 WBC 7.95 (4.8-10.8) K/uL Hgb 9.9 L (14.0-18.0) g/dL Hct 29.9 L (42-52) % Plt Count 278 (130-400) K/uL BMP 10/08/21 05:41 Sodium 142 Potassium 3.4 L Chloride 110 H Carbon Dioxide 28 BUN 8 Creatinine 0.68 Glucose 77 Calcium 8.2 L Medications Administered Current Inpatient Medications Acetaminophen (Acetaminophen 325 Mg Tab) 650 mg PO Q4H PRN PRN Reason: Pain or Fever Stop: 10/27/21 21:39 Last Admin: 10/06/21 20:42 Dose: 650 mg Documented by: Cyanocobalamin (Cyanocobalamin (B-12) 100 Mcg Tablet) 100 mcg PO DAILY [facility] Stop: 10/28/21 08:59 Last Admin: 10/08/21 09:09 Dose: 100 mcg Documented by: Enoxaparin Sodium (Enoxaparin Inj 30 Mg/0.3 Ml Syr) 30 mg SQ QAM [facility] Stop: 10/28/21 08:59 Last Admin: 10/08/21 09:07 Dose: 30 mg Documented by: Famotidine (Famotidine 10 Mg Tablet) 10 mg PO BID [facility] Stop: 10/28/21 08:59 Last Admin: 10/08/21 09:08 Dose: 10 mg Documented by: Fluticasone/Vilanterol (Fluticasone/Vilanterol 100/25mcg 14 Puffs/Inhaler) 1 puffs INH DAILY [facility] Stop: 10/28/21 08:59 Last Admin: 10/08/21 09:05 Dose: 1 puffs Documented by: Folic Acid (Folic Acid 1 Mg Tab) 1 mg PO QAM [facility] Stop: 10/28/21 08:59 Last Admin: 10/08/21 09:09 Dose: 1 mg Documented by: Metoprolol Tartrate (Metoprolol Tartrate 25 Mg Tab) 12.5 mg PO BID [facility] Stop: 10/27/21 22:59 Last Admin: 10/08/21 09:06 Dose: 12.5 mg Documented by: Ondansetron HCl (Ondansetron Inj 2 Mg/Ml 2 Ml Vial) 4 mg IV Q6H PRN PRN Reason: Nausea Stop: 10/27/21 21:39 Pantoprazole Sodium (Pantoprazole 40 Mg Tab) 40 mg PO DAILYBB [facility] Stop: 10/28/21 06:29 Last Admin: 10/08/21 05:36 Dose: 40 mg Documented by: Potassium Chloride (Potassium Chloride Crtab 20 Meq Tabcr) 20 meq PO DAILY [facility] Stop: 10/28/21 08:59 Last Admin: 10/08/21 09:08 Dose: 20 meq Documented by: Prednisone (Prednisone 1 Mg Tab) 1 mg PO QAM [facility] Stop: 10/28/21 08:59 Last Admin: 10/08/21 09:09 Dose: 1 mg Documented by: Roflumilast (Roflumilast 500 Mcg Tab) 500 mcg PO QAM [facility] Stop: 10/28/21 08:59 Last Admin: 10/08/21 09:08 Dose: 500 mcg Documented by: Saccharomyces Boulardii (Saccharomyces Boulardii 250 Mg Cap) 250 mg PO DAILY [facility] Stop: 11/06/21 09:14 Last Admin: 10/08/21 09:09 Dose: 250 mg Documented by: Thiamine HCl (Thiamine Hcl 100 Mg Tab) 100 mg PO QAM [facility] Stop: 10/28/21 08:59 Last Admin: 10/08/21 09:08 Dose: 100 mg Documented by: Tramadol HCl (Tramadol Hcl 50 Mg Tablet) 50 mg PO Q12H PRN PRN Reason: moderate to severe pain Stop: 10/30/21 19:14 Last Admin: 10/07/21 20:13 Dose: 50 mg Documented by: Umeclidinium [place] (Umeclidinium [place] 62.5mcg/Blister 7 Puffs/Inhaler) 1 puffs INH DAILY [facility] Stop: 10/28/21 08:59 Last Admin: 10/08/21 09:06 Dose: 1 puffs Documented by:
[2021-10-08] MEDS: traMADol HCL 50 MG TABLET PO PRN (20:32)
--- NOTE | 2021-10-08 21:34 | XRay Report ---
KUB CLINICAL HISTORY: Generalized abdominal pain. FINDINGS: An AP supine abdominal radiograph is compared to study dated 09/30/2021 and correlated with abdominal CT dated 09/27/2021. There is a nonobstructed abdominal bowel gas pattern. Mild fecal retent ion is seen throughout the colon. No evidence of intraperitoneal free air is seen on this supine imag e. There are no abnormal abdominal calcifications. The skeletal structures are osteopenic and appear intact. There is moderate lumbosacral spondylosis. IMPRESSION: There is no radiographic evidence of bowel obstruction. Electronically signed by: Drew Brooks M.D. 10/08/2021 9:33 PM
[2021-10-09 06:08] LABS: Basophils # (auto) 0.02 K/uL (0-0.2); Basophils % (auto) 0.3 %; Eosinophils # (auto) 0.23 K/uL (0-0.5); Eosinophils % (auto) 2.9 %; Hematocrit (blood only) 30.6 % (42-52); Hemoglobin 9.8 g/dL (14.0-18.0); Immature Granulocytes # (auto) 0.04 K/uL (0.00-0.02); Immature Granulocytes % (auto) 0.5 %; Lymphocytes # (auto) 2.37 K/uL (1.2-3.4); Lymphocytes % (auto) 30.2 %; Mean Corpuscular Hemoglobin 30.6 pg (25-34); Mean Corpuscular Volume 95.6 fL (80-100); Monocytes % (auto) 8.9 %; Neutrophils # (auto) 4.48 K/uL (1.4-6.5); Neutrophils % (auto) 57.2 %; Platelet Count 265 K/uL (130-400); RDW Standard Deviation 48.6 fL (36.4-46.3); White Blood Count 7.84 K/uL (4.8-10.8)
[2021-10-09] MEDS: PANTOprazole 40 MG TAB PO SCH (06:23)
[2021-10-09 06:38] LABS: BUN Creatinine Ratio 12.1 (10-20); Calcium 8.4 mg/dl (8.5-10.1); Creatinine Clr Calc Pharmacy 68.8 ml/min; Est GFR (African American) 107.3 ml/min; Est GFR (Non-African American) 92.6 ml/min; Potassium 3.8 mmol/L (3.5-5.1)
[2021-10-09] MEDS ORDERED: LOPERAMIDE HCL 2 MG CAP PO PRN (08:20)
[2021-10-09] MEDS: METOPROLOL TARTRATE 25 MG TAB PO SCH (08:57)
[2021-10-09] MEDS: FAMOTIDINE 10 MG TABLET PO SCH (08:58)
[2021-10-09] MEDS: ROFLUMILAST 500 MCG TAB PO SCH (08:59)
[2021-10-09] MEDS: CYANOCOBALAMIN (B-12) 100 MCG TABLET PO SCH (08:59)
[2021-10-09] MEDS: FOLIC ACID 1 MG TAB PO SCH (08:59)
[2021-10-09] MEDS: ENOXAPARIN INJ 30 MG/0.3 ML SYR SQ SCH (08:59)
[2021-10-09] MEDS: SACCHAROMYCES BOULARDII 250 MG CAP PO SCH (08:59)
[2021-10-09] MEDS: THIAMINE HCL 100 MG TAB PO SCH (09:00)
[2021-10-09] MEDS: UMECLIDINIUM BROMIDE 62.5MCG/BLISTER 7 PUFFS/INHALER INH SCH (09:00)
[2021-10-09] MEDS: predniSONE 1 MG TAB PO SCH (09:00)
[2021-10-09] MEDS: POTASSIUM CHLORIDE CRTAB 20 MEQ TABCR PO SCH (09:00)
[2021-10-09] MEDS: FLUTICASONE/VILANTEROL 100/25MCG 14 PUFFS/INHALER INH SCH (09:00)
[2021-10-09] MEDS: traMADol HCL 50 MG TABLET PO PRN (09:07)
--- NOTE | 2021-10-09 11:47 | Hospitalist Progress Note ---
Date of Service October 09, 2021 Assessment & Plan (1) Sepsis: Plan: Secondary to C. difficile colitis (2) C. difficile colitis: Plan: Present on admission with worsening diarrhea associated with mid abdominal tenderness Met sepsis criteria on admission with Tachycardia, Leukocytosis, elevate lactic acidosis and procalcitonin WBC on admission 24.3, lactic acid 4.7 Stool positive for C-diff CT abd/pelvis showed persistent proctocolitis consistent with history of C. difficile colitis. Moderate colonic wall thickening with pericolonic stranding and fluid. Pt just completed one week of PO Vanco outpatient Due to worsening lactate on admission there were concerned for toxic colitis.- Surgery was consulted During the admission Surgery recommended to transfer to tertiary care facility, but pt declined the transfer Gastro on board recommended to continue Dificid 200mg BID for 10 days and discontinued metronidazole KUB showed nonobstructed abdominal bowel gas pattern with no radiographic evidence of megacolon. Blood cx and urine cx no growth Pt was started on Zosyn, that was discontinued WBC back to normal If pt declines, WBC increases or shows sign of toxic megacolon then would transfer to tertiary center for further evaluation and tx Tolerated full liquid diet No surgical intervention required at this time Has been tolerating clear liquids and will continue that for now Denies any more abdominal pain and diarrhea seems to be improving-we will advance diet as tolerated Condition is a little worse today-if abdominal swelling persist and increasing pain we will get KUB tomorrow Very slow improvement of his condition-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 Diarrhea is not yet controlled Will give Imodium to control diarrhea Diarrhea seems to be reasonably controlled Minimal abdominal pain without nausea and vomiting Repeat KUB did not show any intestinal obstruction The patient is agreeable to be discharged today (3) Acute urinary retention: Plan: Pt has been voinding UA showed no sign of infection but seems UA was collected few hours after receiving Zosyn urine cx no growth Zosyn discontinued (4) Chronic respiratory failure with hypoxia: Plan: 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 Continue supplemental home oxygen Denies any more shortness of breath and/or cough Denies any respiratory symptoms (5) Steroid dependent: Plan: chronic prednisone use noted. (6) Alcohol abuse: Plan: History of Alcohol abuse Denies any use of alcohol for about year (7) Severe protein-calorie malnutrition: Plan: BMI 17 Will encourage protein intake (8) DVT prophylaxis: Plan: Lovenox Full Code Admission and Anticipated Discharge Date Admission Date: September 27, 2021 Subjective 10/03/2021 The patient was seen and examined in medical telemetry unit He has been complaining of abdominal pain like a band the lower abdomen Still having diarrhea so for 2 times during my examination at around 10 AM Denies any shortness of breath, palpitation or chest pain No fever and no chills 10/04/2021 The patient was seen and examined in medical telemetry unit He has been feeling much better with decreasing abdominal pain and decrease in diarrhea Denies any fever and or chills Will advance diet as tolerated 10/05/2021 The patient was seen and examined in medical telemetry unit He is not so great today and complains to have abdominal pain with minimal distention without nausea and or vomiting Still having diarrhea and has had 4 times loose bowel movement since this morning 10/06/2021 The patient was seen and examined in medical telemetry unit He has been complaining of moderate abdominal pain with minimal distention and has been ongoing diarrhea No fever, chills Denies any nausea and or vomiting 10/07/2021 The patient was seen and examined in medical telemetry unit Still complains to have abdominal discomfort and pain without nausea and or vomiting Has had a good bowel movement today and is still having mild diarrhea 10/08/2021 The patient was seen and examined in medical telemetry unit He has been feeling a little better today with decreasing abdominal distention a nd pain His diarrhea is persisting though 10/09/2021 The patient was seen and examined in medical telemetry unit He has been feeling better and the x-ray did not show any evidence of bowel obstruction Still has minimal pain and diarrhea seems to be under control Imodium has been prescribed to control diarrhea as well Review of Systems Review of Systems: All systems reviewed and are unremarkable except as noted below Neurologic: Generally very weak and lethargic Physical Exam Physical Exam: Lying in bed with minimal distress due to abdominal pain Constitutional: + ill appearing and average body habitus Eyes: PERRL, conjunctivae normal, anicteric sclerae ENMT: external ear and nose normal, oropharynx normal Neck: trachea midline, no thyromegaly Respiratory: no respiratory distress Auscultation: + diminished lung sounds and + crackles (Minimal crackles at the bases) Cardiovascular: Rate/Rhythm: regular rate, regular rhythm and + bradycardic Heart Sounds: normal S1 and normal S2; no murmur Extremities: no edema Gastrointestinal (Abdomen): Inspection/Auscultation: + abdomen distended (Minimal distended at the mid abdomen) and normal bowel sounds Percussion/Palpation: + abdomen tender (Lower quadrants) and abdomen soft Musculoskeletal: No acute arthritis in any joint Neurologic: Alert, awake and oriented x3. Generally very weak and lethargic Psychiatric: A+Ox3, euthymic affect Lymphatic: no cervical or axillary lymphadenopathy Results & Data Results & Data ([facility]) Vital Signs (Past 12 Hours) Vital Signs Temp Pulse Pulse Resp BP Pulse Ox 10/09/21 10:09 76 10/09/21 06:25 36.4 C L 53 L 16 127/63 99 10/09/21 03:40 36.4 C L 51 L 20 119/58 L 99 Laboratory Results Short CBC 10/09/21 Range/Units 05:46 WBC 7.84 (4.8-10.8) K/uL Hgb 9.8 L (14.0-18.0) g/dL Hct 30.6 L (42-52) % Plt Count 265 (130-400) K/uL BMP 10/09/21 05:46 Sodium 140 Potassium 3.8 Chloride 108 H Carbon Dioxide 28 BUN 8 Creatinine 0.66 Glucose 75 Calcium 8.4 L Medications Administered Current Inpatient Medications Acetaminophen (Acetaminophen 325 Mg Tab) 650 mg PO Q4H PRN PRN Reason: Pain or Fever Stop: 10/27/21 21:39 Last Admin: 10/06/21 20:42 Dose: 650 mg Documented by: Cyanocobalamin (Cyanocobalamin (B-12) 100 Mcg Tablet) 100 mcg PO DAILY [facility] Stop: 10/28/21 08:59 Last Admin: 10/09/21 08:59 Dose: 100 mcg Documented by: Enoxaparin Sodium (Enoxaparin Inj 30 Mg/0.3 Ml Syr) 30 mg SQ QAM [facility] Stop: 10/28/21 08:59 Last Admin: 10/09/21 08:59 Dose: 30 mg Documented by: Famotidine (Famotidine 10 Mg Tablet) 10 mg PO BID [facility] Stop: 10/28/21 08:59 Last Admin: 10/09/21 08:58 Dose: 10 mg Documented by: Fluticasone/Vilanterol (Fluticasone/Vilanterol 100/25mcg 14 Puffs/Inhaler) 1 puffs INH DAILY [facility] Stop: 10/28/21 08:59 Last Admin: 10/09/21 09:00 Dose: 1 puffs Documented by: Folic Acid (Folic Acid 1 Mg Tab) 1 mg PO QAM [facility] Stop: 10/28/21 08:59 Last Admin: 10/09/21 08:59 Dose: 1 mg Documented by: Loperamide HCl (Loperamide Hcl 2 Mg Cap) 2 mg PO Q4H PRN PRN Reason: Diarrhea Stop: 11/08/21 08:19 Last Admin: 10/09/21 11:31 Dose: 2 mg Documented by: Metoprolol Tartrate (Metoprolol Tartrate 25 Mg Tab) 12.5 mg PO BID [facility] Stop: 10/27/21 22:59 Last Admin: 10/09/21 08:57 Dose: 12.5 mg Documented by: Ondansetron HCl (Ondansetron Inj 2 Mg/Ml 2 Ml Vial) 4 mg IV Q6H PRN PRN Reason: Nausea Stop: 10/27/21 21:39 Pantoprazole Sodium (Pantoprazole 40 Mg Tab) 40 mg PO DAILYBB [facility] Stop: 10/28/21 06:29 Last Admin: 10/09/21 06:23 Dose: 40 mg Documented by: Potassium Chloride (Potassium Chloride Crtab 20 Meq Tabcr) 20 meq PO DAILY [facility] Stop: 10/28/21 08:59 Last Admin: 10/09/21 09:00 Dose: 20 meq Documented by: Prednisone (Prednisone 1 Mg Tab) 1 mg PO QAM [facility] Stop: 10/28/21 08:59 Last Admin: 10/09/21 09:00 Dose: 1 mg Documented by: Roflumilast (Roflumilast 500 Mcg Tab) 500 mcg PO QAM [facility] Stop: 10/28/21 08:59 Last Admin: 10/09/21 08:59 Dose: 500 mcg Documented by: Saccharomyces Boulardii (Saccharomyces Boulardii 250 Mg Cap) 250 mg PO DAILY [facility] Stop: 11/06/21 09:14 Last Admin: 10/09/21 08:59 Dose: 250 mg Documented by: Thiamine HCl (Thiamine Hcl 100 Mg Tab) 100 mg PO QAM [facility] Stop: 10/28/21 08:59 Last Admin: 10/09/21 09:00 Dose: 100 mg Documented by: Tramadol HCl (Tramadol Hcl 50 Mg Tablet) 50 mg PO Q12H PRN PRN Reason: moderate to severe pain Stop: 10/30/21 19:14 Last Admin: 10/09/21 09:07 Dose: 50 mg Documented by: Umeclidinium [place] (Umeclidinium [place] 62.5mcg/Blister 7 Puffs/Inhaler) 1 puffs INH DAILY [facility] Stop: 10/28/21 08:59 Last Admin: 10/09/21 09:00 Dose: 1 puffs Documented by:
--- NOTE | 2021-10-10 07:56 | Discharge Summary ---
Date of Service October 10, 2021 Admission HPI Per Admitting Provider 80 yo M recently hospitalized for COPD exacerbation. He was discharged to [facility] on 08/30 and was diagnosed with cdiff colitis after developing diarrhea. He reports completing a course of vancomycin one week ago but con tinues to report profuse diarrhea > 5 BMs daily. He reports poor PO tolerance. Denies fevers, but woke up and felt very shaky this morning--describes rigors. Reports progressive fatigue at home over the past couple of days. Reported to the ER physician he had a productive cough and SOB, he denies that to me now and CXR is clear. Although previous notes say he abuses alcohol he reports not dri nking in over a year. He reports weight loss but cannot describe this. Breathing is at baseline and he is on chronic home oxygen. Reports persistent abdominal pain across his navel. He describes this as dull with intermittent sharp pain. Eating and drinking makes it worse, and the pain has been persistent since leaving [facility]. WBC elevated and he is tachycardic. CT abdomen pelvis with IV contrast reveals persistent proctocolitis consistent with a history of C. difficile colitis with moderate colonic wall thickening and pericolonic stranding and fluid. Improvement is seen since prior CT 1 month ago with no abscess and no free air. ROS also reveals difficulty with urination. There is retention present and the pain he describes is in the bladder area. There is also evidence of bladder wall thickening on the CT abd/pelvis today. Admission Exam Per Admitting Provider Physical Exam: CONSTITUTIONAL: cachectic, vitals as above, generally well- appearing, NAD EYES: subconjunctival hemorrhage on medial right eye, no scleral icterus ENT: external ear and nose normal, oropharynx clear, MMM, edentulous. NECK: trachea midline RESPIRATORY: clear to auscultation bilaterally, no crackles, rales or wheezes, normal respiratory effort CARDIOVASCULAR: regular rate and rhythm, S1 and 2 heard without murmurs, gallops or rubs, no JVD, no peripheral edema CHEST: inspection of chest was normal GASTROINTESTINAL: soft, nontender, ND, no guarding MUSCULOSKELETAL: strength 5/5 throughout, head is normocephalic and atraumatic, neck supple, normal palpation of chest wall without tenderness SKIN: warm and dry NEUROLOGIC: CN 2-12 grossly intact, no sensory deficit, normal cognition, normal speech, no tremor PSYCHIATRIC: alert cooperative and oriented to person, place and time. Principal Diagnosis Sepsis secondary to C. difficile colitis, chronic respiratory failure with hypoxia, severe protein calorie malnutrition, history of alcohol abuse Discharge Exam Lying in bed with minimal distress due to abdominal pain Constitutional + ill appearing and average body habitus Eyes PERRL, conjunctivae normal, anicteric sclerae ENMT external ear and nose normal, oropharynx normal Neck trachea midline, no thyromegaly Respiratory no respiratory distress Auscultation: + diminished lung sounds and + crackles (Minimal crackles at the bases) Cardiovascular Rate/Rhythm: regular rate, regular rhythm and + bradycardic Heart Sounds: normal S1 and normal S2; no murmur Extremities: no edema Gastrointestinal (Abdomen) Inspection/Auscultation: + abdomen distended (Minimal distended at the mid abdomen) and normal bowel sounds Percussion/Palpation: + abdomen tender (Lower quadrants) and abdomen soft Psychiatric A+Ox3, euthymic affect Lymphatic no cervical or axillary lymphadenopathy Discharge Data Allergies Allergy/AdvReac Type Severity Reaction Status Date / Time No Known Allergies Allergy Verified 09/27/21 16:47 Consultations 09/27/21 16:54 ED Decision to Admit Stat 09/27/21 21:40 Consult Gastroenterology Routine 09/28/21 00:05 Consult General Surgery Routine Ordered Studies 09/27/21 15:21 CT abd pelvis IV con only Stat Hospital Course (1) Sepsis: Secondary to C. difficile colitis (2) C. difficile colitis: Present on admission with worsening diarrhea associated with mid abdominal tenderness Met sepsis criteria on admission with Tachycardia, Leukocytosis, elevate lactic acidosis and procalcitonin WBC on admission 24.3, lactic acid 4.7 Stool positive for C-diff CT abd/pelvis showed persistent proctocolitis consistent with history of C. difficile colitis. Moderate colonic wall thickening with pericolonic stranding and fluid. Pt just completed one week of PO Vanco outpatient Due to worsening lactate on admission there were concerned for toxic colitis.- Surgery was consulted During the admission Surgery recommended to transfer to tertiary care facility, but pt declined the transfer Gastro on board recommended to continue Dificid 200mg BID for 10 days and discontinued metronidazole KUB showed nonobstructed abdominal bowel gas pattern with no radiographic evidence of megacolon. Blood cx and urine cx no growth Pt was started on Zosyn, that was discontinued WBC back to normal If pt declines, WBC increases or shows sign of toxic megacolon then would transfer to tertiary center for further evaluation and tx Tolerated full liquid diet No surgical intervention required at this time Has been tolerating clear liquids and will continue that for now Denies any more abdominal pain and diarrhea seems to be improving-we will advance diet as tolerated Condition is a little worse today-if abdominal swelling persist and increasing pain we will get KUB tomorrow Very slow improvement of his condition-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 Diarrhea is not yet controlled Will give Imodium to control diarrhea Diarrhea seems to be reasonably controlled Minimal abdominal pain without nausea and vomiting Repeat KUB did not show any intestinal obstruction The patient is agreeable to be discharged today (3) Acute urinary retention: Pt has been voinding UA showed no sign of infection but seems UA was collected few hours after receiving Zosyn urine cx no growth Zosyn discontinued (4) Chronic respiratory failure with hypoxia: 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 Continue supplemental home oxygen Denies any more shortness of breath and/or cough Denies any respiratory symptoms (5) Steroid dependent: chronic prednisone use noted. (6) Alcohol abuse: History of Alcohol abuse Denies any use of alcohol for about year (7) Severe protein-calorie malnutrition: BMI 17 Will encourage protein intake (8) DVT prophylaxis: Lovenox Full Code Total Time Total Time Spent Total Time Spent (In Minutes): 35 minutes Discharge Plan Discharge Items Patient Disposition: Transfer Inpatient Rehab Fac Reason For Visit: SEPSIS 2/2 COLITIS, POSS C DIFF Discharge Diagnosis: Sepsis secondary to C. difficile colitis, chronic respiratory failure with hypoxia, severe protein calorie malnutrition, history of alcohol abuse Condition on Discharge: Fair Activity: As commented below Activity Comment: Continue PT and OT Non-emergency contact: Primary Care Provider Call non-emergency contact if: you have any medication questions and your symptoms worsen Follow-up/Referrals: Kavya Dillard CRNP [Primary Care Provider] - (Please make an appointment with your primary care if provider within 7 days following discharge from the facility) Diet: Heart Healthy and Lactose Intolerant Addtl Attending Provider Instructions: Please take precautions to avoid falls Try to take a small amount of food at 1 time and multiple times in a day Take your medications as advised Continue PT and OT Pending Studies at Discharge: No Stand-Alone Forms: My [facility] Skilled Items Patient informed of condition?: Yes DNR: No Discharge Level of Care: Acute rehab Communicable Disease: No Discharge Prognosis: Stable Lines: None Urinary Catheter: No Medications and DC Order Prescriptions: New tramadol 50 mg Tablet 25 mg PO Q12H PRN (Reason: pain) 5 Days Qty: 10 RF: 0 loperamide 2 mg Capsule 2 mg PO Q4H PRN (Reason: loose stool) 10 Days Qty: 30 RF: 0 Saccharomyces boulardii [Florastor] 250 mg Capsule 250 mg PO BID 30 Days Qty: 60 RF: 0 cholestyramine (with sugar) [Questran] 4 gram powder 4 g PO DAILY Qty: 348.6 RF: 0 Continued Daliresp 500 mcg tablet 500 mcg PO QAM RF: 0 folic acid 1 mg tablet 1 mg PO QAM RF: 0 ProAir RespiClick 90 mcg/actuation aerosol powdr breath activated 2 puffs INH Q4H PRN (Reason: shortness of breath or wheezing) RF: 0 thiamine HCl (vitamin B1) 100 mg tablet 100 mg PO QAM RF: 0 prednisone 1 mg tablet 1 mg PO QAM RF: 0 cyanocobalamin (vitamin B-12) 100 mcg tablet 100 mcg PO DAILY RF: 0 fluticasone propion-salmeterol [Advair Diskus] 250-50 mcg/dose Blister With Device 1 inh INHALATION BID RF: 0 famotidine 10 mg Tablet 10 mg PO BID RF: 0 omeprazole 40 mg Capsule,Delayed Release(Dr/Ec) 40 mg PO DAILYBB RF: 0 acetaminophen [Tylenol Extra Strength] 500 mg Tablet 500 mg PO Q4H PRN (Reason: Pain) RF: 0 levalbuterol HCl [Xopenex] 1.25 mg/3 mL Solution For Nebulization 1.25 mg INHALATION TID RF: 0 multivitamin with minerals Tablet 1 tab PO DAILY RF: 0 ipratropium bromide 0.02 % Solution 2.5 ml INHALATION TID RF: 0 potassium chloride 20 mEq Tablet Extended Release 20 meq PO DAILY RF: 0 Spiriva Respimat 1.25 mcg/actuation Mist 2 puff INHALATION DAILY RF: 0 Changed vancomycin 125 mg Capsule 125 mg PO UD Qty: 100 RF: 0 Discharge Orders: Discharge Order (Routine); Ordered 10/09/21 Ordered By: Yadiel White Admission Data Admit Date/Time: 09/27/21 19:39 Attending Provider: Yadiel White Admit Provider: Yesi Lopez Primary Care Provider: Kavya Dillard Other Providers: Yesi Lopez ; Tomás Cruz ; Ambrose Linda ; [facility] Other Interventions: Discharge Summary Assessment (RN) Last Done: 10/09/21 12:23
== END 2021-10-09 15:07 | DRG 871 ==
LOC: ED 15:04 → 2N 19:39 → SUATTDRO 19:39 → 2N 21:07
DX: K21.9 Gastro-esophageal reflux disease without esophagitis; A04.72 Enterocolitis due to Clostridium difficile, not specified as recurrent; Z99.81 Dependence on supplemental oxygen; R33.9 Retention of urine, unspecified; Z68.1 Body mass index [BMI] 19.9 or less, adult; J44.1 Chronic obstructive pulmonary disease with (acute) exacerbation; E43 Unspecified severe protein-calorie malnutrition; A41.4 Sepsis due to anaerobes; Z87.891 Personal history of nicotine dependence; E87.2 Acidosis; J96.21 Acute and chronic respiratory failure with hypoxia; Z79.52 Long term (current) use of systemic steroids

== ENCOUNTER 2021-12-05 14:18 | Inpatient (IN) ==
[2021-12-05] MEDS ORDERED: SODIUM CHLORIDE 0.9% 1000ML 1,000 ML IV STA (15:11)
[2021-12-05] MEDS ORDERED: ONDANSETRON INJ 2 MG/ML 2 ML VIAL IV STA (15:12)
[2021-12-05] MEDS ORDERED: fentaNYL citrate 100 MCG/2 ML VIAL IV PRN (15:12)
[2021-12-05 15:22] LABS: Hematocrit (blood only) 34.6 % (42-52); Hemoglobin 11.4 g/dL (14.0-18.0); Mean Corpuscular Hgb Conc 32.9 g/dL (32-36); Mean Corpuscular Volume 91.1 fL (80-100); Mean Platelet Volume 9.1 fL (7.4-10.4); Platelet Count 341 K/uL (130-400); RDW Coefficient of Variation 14.9 % (11.5-14.5); RDW Standard Deviation 49.9 fL (36.4-46.3); White Blood Count 27.84 K/uL (4.8-10.8)
--- NOTE | 2021-12-05 15:30 | Emergency Department Note ---
Impression & Plan Colitis, Abdominal pain, Elevated WBC count, Diarrhea, FRANCISCA (acute kidney injury) ED Provider Note NAME: JORDAN BRADFORD JR AGE: 81 SEX: M : 1940 ARRIVES VIA: Walk-In INFORMANT: Patient, ED PROVIDER(S): León Padron DO CHIEF COMPLAINT: Abdominal pain HPI: The patient is a 81-year-old male who presented to the emergency department for evaluation of abdominal pain. The patient is a history of C. difficile colitis in the past. He started noticing loose bowel movements over the last 24 hours. He has had diffuse abdominal pain. He denies having any fever. He denies having any back pain or chest pain. The patient describes dizziness upon standing. He has had profuse diarrhea. He denies having any rectal bleeding. He is not been seen by his family doctor. He presented to the emergency department because of the degree of symptoms. ROS: See above HPI for pertinent positives & negatives. A total of 10 systems reviewed and were otherwise negative. PAST MEDICAL HISTORY: See Below PAST SURGICAL HISTORY: See Below FAMILY HISTORY: See Below SOCIAL HISTORY: See Below HOME MEDICATIONS: See Below ALLERGIES: See Below VITALS: See Below PHYSICAL EXAMINATION: GENERAL: The patient is awake and alert. He is very frail appearing. EYES: The conjunctivae are clear. The pupils are round and reactive. EARS, NOSE, MOUTH AND THROAT: The nose is without any evidence of any deformity. Mucous membranes are dry. NECK: The neck is nontender and supple. RESPIRATORY: Scattered rhonchi were noted throughout. There is no tachypnea or conversational dyspnea. CARDIOVASCULAR: Regular rate and rhythm noted there no murmurs rubs or gallops normal S1 normal S2. GASTROINTESTINAL: The abdomen is soft and nondistended. There is diffuse tenderness to palpation. MUSCULOSKELETAL/EXTREMITIES: There is no evidence of gross deformity full range of motion is noted in the hips and shoulders. SKIN: There is no obvious evidence of any rash. There are no petechiae, pallor or cyanosis noted. NEUROLOGIC: Patient is awake alert and oriented x3 MEDICAL DECISION MAKING: The patient is a 81-year-old male who presented to the emergency department for an evaluation of diarrhea and abdominal pain. The patient has a history of C. difficile colitis. He was treated with IV fluids and IV pain medication in the emergency department. He was even given a oral vancomycin given his history and his findings on CT. The patient was unable to provide a stool specimen. We are still waiting. I discussed the patient's condition with the on-call [facility] hospitalist. They have agreed to evaluate the patient in the emergency department for further management and disposition. Triage Nursing notes reviewed. Prior medical records reviewed Vital Signs: reviewed and remarkable for initial hypotension Differential diagnosis: Etiologies such as appendicitis, diverticulitis, obstruction, inflammatory bowel disease, renal colic, PUD, biliary pathology, pancreatitis, mesenteric ischemia, aortic pathology, infections, genitourinary, UTI, perforated viscus, as well as others were entertained. ER treatment provided: See below Diagnostics interpreted by me: ECG: EKG was obtained in the emergency department. My interpretation is sinus tachycardia at 160 bpm. There is no ectopy. Nonspecific ST and T wave abnormalities were noted. LVH was suggested by voltage criteria. This was compared to a tracing from September 27, 2021. No specific changes were noted. Cardiac Monitoring: An order was placed for continuous cardiac monitoring. The monitor shows a rate of 78 bpm with sinus rhythm. Laboratory studies: As stated above and show below. Imaging studies: See below Consultation(s): I discussed his case with Dr. Lawson [facility]. Past [facility]/Surg History Medical History Chronic obstructive pulmonary disease Chronic respiratory failure COPD exacerbation Elevated troponin I level Fibrosis of lung GERD with esophagitis History of alcohol abuse History of tobacco use Hypomagnesemia On home oxygen therapy WEARS O2 AT 2L CONT. Oxygen dependent Pulmonary hypertension Surgical History History of right cataract surgery History of tooth extraction Family History Mother Diverticulitis Father COPD (chronic obstructive pulmonary disease) Dad was a smoker Social History Smoking Status: Former smoker Tobacco Type: E-cigarettes / Vaping Second Hand Exposure: Yes; Hx Alcohol Use: Yes Alcohol type: beer Hx Substance Use: No Preferred Language: Kyrgyz Communication Ability: Effective Healthcare Administration Intern Required: No Beliefs That Will Affect Care: None Current Living Situation: Spouse Feels Safe at Home: Yes Assistive Devices: Cane, Glasses, Oxygen - Continuous and Walker Allergies Allergies Allergy/AdvReac Type Severity Reaction Status Date / Time No Known Allergies Allergy Verified 12/05/21 16:53 Home Meds Home Medications Medication Instructions Recorded Confirmed albuterol sulfate 90 mcg/actuation 2 puffs INH Q4H PRN ea 04/11/19 12/05/21 breath activated powder inhaler (ProAir RespiClick) folic acid 1 mg tablet 1 mg PO QAM tab 04/11/19 12/05/21 roflumilast 500 mcg tablet 500 mcg PO QAM 04/11/19 12/05/21 (Daliresp) thiamine HCl (vitamin B1) 100 mg 100 mg PO QAM 04/11/19 12/05/21 tablet cyanocobalamin (vitamin B-12) 100 100 mcg PO DAILY 08/23/21 12/05/21 mcg tablet fluticasone 250 mcg-salmeterol 50 1 inh INHALATION BID 08/23/21 12/05/21 mcg/dose blistr powdr for inhalation (Advair Diskus) acetaminophen 500 mg tablet 500 mg PO Q4H PRN 09/27/21 12/05/21 (Tylenol Extra Strength) famotidine 10 mg tablet 10 mg PO BID 09/27/21 12/05/21 ipratropium bromide 0.02 % 2.5 ml INHALATION TID PRN 09/27/21 12/05/21 solution for inhalation levalbuterol HCl 1.25 mg/3 mL 1.25 mg INHALATION TID 09/27/21 12/05/21 solution for nebulization (Xopenex) multivitamin with minerals 1 tab PO DAILY 09/27/21 12/05/21 omeprazole 40 mg capsule,delayed 40 mg PO DAILYBB 09/27/21 12/05/21 release potassium chloride 20 mEq 20 meq PO DAILY 09/27/21 12/05/21 tablet,extended release ipratropium 20 mcg-albuterol 100 1 puff INHALATION QID 12/05/21 12/05/21 mcg/actuation mist for inhalation (Combivent Respimat) Previous Rx's Medication Instructions Recorded cholestyramine (with sugar) 4 gram 4 g PO DAILY #348.6 g 10/09/21 oral powder (Questran) Results & Data (ED) Vital Signs Vital Signs - 24 hr 12/05/21 14:25 12/05/21 15:33 12/05/21 15:40 Temperature 36.6 C Temperature Source Temporal Artery Scan Pulse Rate 100 H 99 H 93 H Pulse Rate [Apical] Pulse Rate from SpO2 Sensor 98 H 96 H Respiratory Rate 16 16 24 Respiratory Effort / Characteristics Non-Labored Respiratory Depth Normal Blood Pressure 82/52 L Blood Pressure [Right Arm] Blood Pressure Mean 62 Blood Pressure Mean [Right Arm] Pulse Oximetry 96 100 98 Oxygen Delivery Method Nasal Cannula Oxygen Flow Rate 3.5 Sepsis Recent Fever Within 48 Hours No Sepsis New/Unexplained Change in Mental Status No Sepsis Action Taken by Nursing No Action Required 12/05/21 15:50 12/05/21 16:00 12/05/21 16:10 Temperature Temperature Source Pulse Rate 90 86 96 H Pulse Rate [Apical] Pulse Rate from SpO2 Sensor 89 87 91 H Respiratory Rate 17 22 12 Respiratory Effort / Characteristics Respiratory Depth Blood Pressure Blood Pressure [Right Arm] Blood Pressure Mean Blood Pressure Mean [Right Arm] Pulse Oximetry 96 100 95 Oxygen Delivery Method Oxygen Flow Rate Sepsis Recent Fever Within 48 Hours Sepsis New/Unexplained Change in Mental Status Sepsis Action Taken by Nursing 12/05/21 16:20 12/05/21 16:30 12/05/21 18:01 Temperature Temperature Source Pulse Rate 88 80 76 Pulse Rate [Apical] 75 Pulse Rate from SpO2 Sensor 88 83 Respiratory Rate 15 36 H 20 Respiratory Effort / Characteristics Non-Labored Respiratory Depth Normal Blood Pressure 127/62 Blood Pressure [Right Arm] 127/62 Blood Pressure Mean 83 Blood Pressure Mean [Right Arm] 83 Pulse Oximetry 99 98 100 Oxygen Delivery Method Nasal Cannula Oxygen Flow Rate 3.5 Sepsis Recent Fever Within 48 Hours Sepsis New/Unexplained Change in Mental Status Sepsis Action Taken by Nursing 12/05/21 19:00 12/05/21 20:00 12/05/21 21:00 Temperature Temperature Source Pulse Rate 85 82 78 Pulse Rate [Apical] Pulse Rate from SpO2 Sensor 79 82 78 Respiratory Rate 25 H 27 H 24 Respiratory Effort / Characteristics Respiratory Depth Blood Pressure 115/61 123/69 100/61 Blood Pressure [Right Arm] Blood Pressure Mean 79 87 74 Blood Pressure Mean [Right Arm] Pulse Oximetry 100 98 96 Oxygen Delivery Method Nasal Cannula Nasal Cannula Nasal Cannula Oxygen Flow Rate Sepsis Recent Fever Within 48 Hours Sepsis New/Unexplained Change in Mental Status Sepsis Action Taken by Intermediate Medications Current Medication List: was personally reviewed by me Laboratory Data Attestation: I reviewed the patient's lab results. Result diagrams: 12/05/21 14:49 12/05/21 14:49 Lab Results 12/05/21 12/05/21 12/05/21 Range/Units 14:49 14:49 14:49 WBC 27.84 H (4.8-10.8) K/uL RBC 3.80 L (4.7-6.1) M/uL Hgb 11.4 L (14.0-18.0) g/dL Hct 34.6 L (42-52) % MCV 91.1 (80-100) fL MCH 30.0 (25-34) pg MCHC 32.9 (32-36) g/dL RDW Std Deviation 49.9 H (36.4-46.3) fL RDW Coeff of Julissa 14.9 H (11.5-14.5) % Plt Count 341 (130-400) K/uL MPV 9.1 (7.4-10.4) fL Immature Gran % (Auto) 0.6 % Neut % (Auto) 88.9 % Lymph % (Auto) 5.2 % Gooding % (Auto) 5.1 % Eos % (Auto) 0.1 % Baso % (Auto) 0.1 % Neut # (Auto) 24.71 H (1.4-6.5) K/uL Lymph # (Auto) 1.46 (1.2-3.4) K/uL Gooding # (Auto) 1.43 H (0.11-0.59) K/uL Eos # (Auto) 0.03 (0-0.5) K/uL Baso # (Auto) 0.03 (0-0.2) K/uL Immature Gran # (Auto) 0.18 H (0.00-0.02) K/uL PT 11.2 (9.0-12.0) Seconds INR 1.1 (0.9-1.1) APTT 28.6 (21.0-31.0) Seconds PTT Ratio 1.0 Sodium 135 L (136-145) mmol/L Potassium 3.3 L (3.5-5.1) mmol/L Chloride 99 (98-107) mmol/L Carbon Dioxide 24 (21-32) mmol/L Anion Gap 12 H (3-11) BUN 44 H (6-23) mg/dl Creatinine 1.41 H (0.6-1.4) mg/dl Est Cr Clr Drug Dosing 27.0 ml/min Est GFR ( Amer) 54.5 ml/min Est GFR (Non-Af Amer) 47.0 ml/min BUN/Creatinine Ratio 31.2 H (10-20) Glucose 144 H (70-99(Fasting)) mg/dl Lactate (0.4-2.0) mmol/L Calcium 8.9 (8.5-10.1) mg/dl Magnesium 1.7 (1.7-2.4) mg/dl Total Bilirubin 0.5 (0.2-1.0) mg/dl AST 9 L (13-39) U/L ALT 6 L (7-52) U/L Alkaline Phosphatase 126 H (34-104) U/L Troponin I High Sens (0-20) pg/ml Total Protein 6.9 (6.0-8.3) gm/dl Albumin 3.3 L (3.4-5.0) gm/dl Globulin 3.6 (2.5-4.0) gm/dl Albumin/Globulin Ratio 0.9 (0.9-2) Random Cortisol mcg/dl Ethyl Alcohol mg/dL (<10.0) mg/dl SARS-CoV-2, RNA, NAAT (NEGATIVE) 12/05/21 12/05/21 12/05/21 Range/Units 14:49 16:06 18:05 WBC (4.8-10.8) K/uL RBC (4.7-6.1) M/uL Hgb (14.0-18.0) g/dL Hct (42-52) % MCV (80-100) fL MCH (25-34) pg MCHC (32-36) g/dL RDW Std Deviation (36.4-46.3) fL RDW Coeff of Julissa (11.5-14.5) % Plt Count (130-400) K/uL MPV (7.4-10.4) fL Immature Gran % (Auto) % Neut % (Auto) % Lymph % (Auto) % Gooding % (Auto) % Eos % (Auto) % Baso % (Auto) % Neut # (Auto) (1.4-6.5) K/uL Lymph # (Auto) (1.2-3.4) K/uL Gooding # (Auto) (0.11-0.59) K/uL Eos # (Auto) (0-0.5) K/uL Baso # (Auto) (0-0.2) K/uL Immature Gran # (Auto) (0.00-0.02) K/uL PT (9.0-12.0) Seconds INR (0.9-1.1) APTT (21.0-31.0) Seconds PTT Ratio Sodium (136-145) mmol/L Potassium (3.5-5.1) mmol/L Chloride (98-107) mmol/L Carbon Dioxide (21-32) mmol/L Anion Gap (3-11) BUN (6-23) mg/dl Creatinine (0.6-1.4) mg/dl Est Cr Clr Drug Dosing ml/min Est GFR ( Amer) ml/min Est GFR (Non-Af Amer) ml/min BUN/Creatinine Ratio (10-20) Glucose (70-99(Fasting)) mg/dl Lactate (0.4-2.0) mmol/L Calcium (8.5-10.1) mg/dl Magnesium (1.7-2.4) mg/dl Total Bilirubin (0.2-1.0) mg/dl AST (13-39) U/L ALT (7-52) U/L Alkaline Phosphatase (34-104) U/L Troponin I High Sens 13.7 (0-20) pg/ml Total Protein (6.0-8.3) gm/dl Albumin (3.4-5.0) gm/dl Globulin (2.5-4.0) gm/dl Albumin/Globulin Ratio (0.9-2) Random Cortisol 23.30 mcg/dl Ethyl Alcohol mg/dL (<10.0) mg/dl SARS-CoV-2, RNA, NAAT NEGATIVE (NEGATIVE) 12/05/21 12/05/21 Range/Units 20:56 20:56 WBC (4.8-10.8) K/uL RBC (4.7-6.1) M/uL Hgb (14.0-18.0) g/dL Hct (42-52) % MCV (80-100) fL MCH (25-34) pg MCHC (32-36) g/dL RDW Std Deviation (36.4-46.3) fL RDW Coeff of Julissa (11.5-14.5) % Plt Count (130-400) K/uL MPV (7.4-10.4) fL Immature Gran % (Auto) % Neut % (Auto) % Lymph % (Auto) % Gooding % (Auto) % Eos % (Auto) % Baso % (Auto) % Neut # (Auto) (1.4-6.5) K/uL Lymph # (Auto) (1.2-3.4) K/uL Gooding # (Auto) (0.11-0.59) K/uL Eos # (Auto) (0-0.5) K/uL Baso # (Auto) (0-0.2) K/uL Immature Gran # (Auto) (0.00-0.02) K/uL PT (9.0-12.0) Seconds INR (0.9-1.1) APTT (21.0-31.0) Seconds PTT Ratio Sodium (136-145) mmol/L Potassium (3.5-5.1) mmol/L Chloride (98-107) mmol/L Carbon Dioxide (21-32) mmol/L Anion Gap (3-11) BUN (6-23) mg/dl Creatinine (0.6-1.4) mg/dl Est Cr Clr Drug Dosing ml/min Est GFR ( Amer) ml/min Est GFR (Non-Af Amer) ml/min BUN/Creatinine Ratio (10-20) Glucose (70-99(Fasting)) mg/dl Lactate 1.6 (0.4-2.0) mmol/L Calcium (8.5-10.1) mg/dl Magnesium (1.7-2.4) mg/dl Total Bilirubin (0.2-1.0) mg/dl AST (13-39) U/L ALT (7-52) U/L Alkaline Phosphatase (34-104) U/L Troponin I High Sens (0-20) pg/ml Total Protein (6.0-8.3) gm/dl Albumin (3.4-5.0) gm/dl Globulin (2.5-4.0) gm/dl Albumin/Globulin Ratio (0.9-2) Random Cortisol mcg/dl Ethyl Alcohol mg/dL < 10.0 (<10.0) mg/dl SARS-CoV-2, RNA, NAAT (NEGATIVE) Administered Medications Fentanyl Citrate (Fentanyl Citrate 100 Mcg/2 Ml Vial) 50 mcg IV Q15M PRN PRN Reason: Pain Stop: 12/19/21 15:11 Last Admin: 12/05/21 15:23 Dose: 50 mcg Documented by: [id number] Lactated Ringer's (Lr) 1,000 mls @ 80 mls/hr IV .[id number] ONE Stop: 12/06/21 08:07 Last Admin: 12/05/21 20:00 Dose: 80 mls/hr Documented by: [id number] Discontinued Medications Sodium Chloride (Nss 1000ml) 1,000 mls @ 999 mls/hr IV .Q1H1M STA Stop: 12/05/21 16:11 Last Infusion: 12/05/21 16:31 Dose: 0 mls/hr Documented by: [id number] Admin: 12/05/21 15:23 Dose: 999 mls/hr Documented by: [id number] Sodium Chloride (Nss 1000ml) 1,000 mls @ 999 mls/hr IV .Q1H1M ONE Stop: 12/05/21 17:58 Last Infusion: 12/05/21 19:07 Dose: 0 mls/hr Documented by: [id number] Admin: 12/05/21 17:34 Dose: 999 mls/hr Documented by: [id number] Ioversol (Optiray 320 100ml) 93 ml IV ONCE ONE Stop: 12/05/21 17:01 Last Admin: 12/05/21 17:00 Dose: 93 ml Documented by: [id number] Ondansetron HCl (Ondansetron Inj 2 Mg/Ml 2 Ml Vial) 4 mg IV NOW STA Stop: 12/05/21 15:13 Last Admin: 12/05/21 15:23 Dose: 4 mg Documented by: [id number] Raspberry (Raspberry Syrup 5 Ml Udp) 5 ml PO ONE STA Stop: 12/05/21 17:38 Last Admin: 12/05/21 17:57 Dose: 5 ml Documented by: [id number] Vancomycin HCl (Vancomycin Hcl 250 Mg/5 Ml Soln) 250 mg PO ONE STA Stop: 12/05/21 17:38 Last Admin: 12/05/21 17:56 Dose: 250 mg Documented by: [id number] Imaging Data Radiologist's Impression: Abdomen/Pelvis CT 12/05/21 15:11 CT OF THE ABDOMEN AND PELVIS WITH CONTRAST CLINICAL HISTORY: Lower abdominal pain. COMPARISON STUDY: CT of the abdomen and pelvis September 27, 2021. KUB October 08, 2021. TECHNIQUE: Following IV administration of 93 mL of Optiray, axial images of the abdomen and pelvis were obtained from the lung bases to the proximal femurs. Images were reviewed in the axial, sagittal, and coronal planes. IV contrast was administered without complication. Automated exposure control was utilized for the study. A dose lowering technique was utilized adhering to the principles of ALARA. CT DOSE: 279.76 mGy.cm FINDINGS: Emphysema is noted within the lower lungs. No pneumatosis, free air or portal venous gas is present. The liver, spleen, adrenal glands, kidneys and pancreas are unremarkable. Calcified granulomas within the spleen are present. No evidence for a bowel obstruction. Note is made of marked wall thickening of the rectum, sigmoid colon and descending colon. There is moderate wall thickening of the transverse colon and ascending colon. Findings have progressed when compared to CT of September 27, 2021. No abscess. There is pericolonic stranding and fluid. No lymphadenopathy is present. No acute fracture is identified. 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 Extensive aortoiliac atherosclerotic plaque is noted. Bladder wall thickening with adjacent stranding is similar to prior exam. IMPRESSION: Findings consistent with a severe proctocolitis, as detailed above. Marked colorectal wall thickening which has progressed since prior CT of September 27, 2021. Pericolonic stranding and fluid. No free air or abscess. The appearance raises the possibility of C. difficile colitis. ACT 112: Negative or not required by law. Electronically signed by: Charles Littlejohn M.D. 12/05/2021 5:24 PM Chest X-Ray 12/05/21 15:11 XR chest 1V portable CLINICAL HISTORY: Atypical chest pain. COMPARISON STUDY: Chest CT April 16, 2021. Chest radiograph September 28, 2021. FINDINGS: Severe emphysema is noted. There is no pneumothorax or pleural effusion. Interstitial thickening is unchanged. This is chronic. No superimposed consolidation. No evidence for pulmonary edema. Cardiac size is normal. Mediastinal contours are normal. Appearance of the chest is unchanged. IMPRESSION: 1. No acute cardiopulmonary findings. No change in appearance of the chest. 2. Severe emphysema. ACT 112: Negative or not required by law. Electronically signed by: Charles Littlejohn M.D. 12/05/2021 4:13 PM Discharge Plan Visit Data Chief Complaint: Abdominal Pain Stated Complaint: ABDOMINAL PAIN, COPD ED Provider: León Padron Discharge Problem: Colitis, Abdominal pain, Elevated WBC count, Diarrhea, FRANCISCA (acute kidney injury) Patient Disposition: Admitted As Inpatient Discharge Instructions Interventions: ED Discharge Assessment Last Done: 12/05/21 21:28 Forms Stand Alone Forms: [employer] [facility] [employer] Prescriptions Prescriptions: No Action Daliresp 500 mcg tablet 500 mcg PO QAM RF: 0 folic acid 1 mg tablet 1 mg PO QAM RF: 0 ProAir RespiClick 90 mcg/actuation aerosol powdr breath activated 2 puffs INH Q4H PRN (Reason: shortness of breath or wheezing) RF: 0 thiamine HCl (vitamin B1) 100 mg tablet 100 mg PO QAM RF: 0 cyanocobalamin (vitamin B-12) 100 mcg tablet 100 mcg PO DAILY RF: 0 fluticasone propion-salmeterol [Advair Diskus] 250-50 mcg/dose Blister With Device 1 inh INHALATION BID RF: 0 famotidine 10 mg Tablet 10 mg PO BID RF: 0 omeprazole 40 mg Capsule,Delayed Release(Dr/Ec) 40 mg PO DAILYBB RF: 0 acetaminophen [Tylenol Extra Strength] 500 mg Tablet 500 mg PO Q4H PRN (Reason: Pain) RF: 0 levalbuterol HCl [Xopenex] 1.25 mg/3 mL Solution For Nebulization 1.25 mg INHALATION TID RF: 0 multivitamin with minerals Tablet 1 tab PO DAILY RF: 0 ipratropium bromide 0.02 % Solution 2.5 ml INHALATION TID PRN (Reason: Shortness Of Breath Or Wheezing) RF: 0 potassium chloride 20 mEq Tablet Extended Release 20 meq PO DAILY RF: 0 cholestyramine (with sugar) [Questran] 4 gram powder 4 g PO DAILY Qty: 348.6 RF: 0 Combivent Respimat 20-100 mcg/actuation mist 1 puff INHALATION QID RF: 0 Referrals Referrals: Rhed,Kavya R., OBSTETRICIAN [Primary Care Provider] -
[2021-12-05 15:31] LABS: INR 1.1 (0.9-1.1); Partial Thromboplastin Time 28.6 Seconds (21.0-31.0); Prothrombin Time 11.2 Seconds (9.0-12.0)
[2021-12-05 15:45] LABS: Basophils # (auto) 0.03 K/uL (0-0.2); Basophils % (auto) 0.1 %; Eosinophils # (auto) 0.03 K/uL (0-0.5); Eosinophils % (auto) 0.1 %; Immature Granulocytes # (auto) 0.18 K/uL (0.00-0.02); Immature Granulocytes % (auto) 0.6 %; Lymphocytes # (auto) 1.46 K/uL (1.2-3.4); Lymphocytes % (auto) 5.2 %; Monocytes # (auto) 1.43 K/uL (0.11-0.59); Monocytes % (auto) 5.1 %; Neutrophils # (auto) 24.71 K/uL (1.4-6.5); Neutrophils % (auto) 88.9 %
[2021-12-05 15:58] LABS: Albumin Globulin Ratio 0.9 (0.9-2); Albumin Level 3.3 gm/dl (3.4-5.0); BUN Creatinine Ratio 31.2 (10-20); Bilirubin,Total 0.5 mg/dl (0.2-1.0); Calcium 8.9 mg/dl (8.5-10.1); Est GFR (African American) 54.5 ml/min; Globulin 3.6 gm/dl (2.5-4.0); Magnesium 1.7 mg/dl (1.7-2.4); Potassium 3.3 mmol/L (3.5-5.1); Total Protein 6.9 gm/dl (6.0-8.3)
--- NOTE | 2021-12-05 16:15 | XRay Report ---
XR chest 1V portable CLINICAL HISTORY: Atypical chest pain. COMPARISON STUDY: Chest CT April 16, 2021. Chest radiograph September 28, 2021. FINDINGS: Severe emphysema is noted. There is no pneumothorax or pleural effusion. Interstitial thick ening is unchanged. This is chronic. No superimposed consolidation. No evidence for pulmonary edema. Cardiac size is normal. Mediastinal contours are normal. Appearance of the chest is unchanged. IMPRESSION: 1. No acute cardiopulmonary findings. No change in appearance of the chest. 2. Severe emphysema. ACT 112: Negative or not required by law. Electronically signed by: Charles Littlejohn M.D. 12/05/2021 4:13 PM
[2021-12-05] MEDS ORDERED: SODIUM CHLORIDE 0.9% 1000ML 1,000 ML IV ONE (16:58)
[2021-12-05] MEDS ORDERED: OPTIRAY 320 100ml IV ONE (17:00)
--- NOTE | 2021-12-05 17:01 | Electrocardiogram Report ---
Test Reason : Blood Pressure : / mmHG Vent. Rate : 116 BPM Atrial Rate : 116 BPM P-R Int : 088 ms QRS Dur : 074 ms QT Int : 302 ms P-R-T Axes : 072 089 -34 degrees QTc Int : 419 ms Poor data quality, interpretation may be adversely affected Sinus tachycardia with short SD Abnormal ECG When compared with ECG of 27-SEP-2021 15:26, SD interval has decreased T wave inversion now evident in Inferior leads Confirmed by Bob Hargrove ([id number]) on 12/05/2021 5:01:42 PM Referred By: SELF Confirmed By:Bob Hargrove
--- NOTE | 2021-12-05 17:26 | CT Scan Report ---
CT OF THE ABDOMEN AND PELVIS WITH CONTRAST CLINICAL HISTORY: Lower abdominal pain. COMPARISON STUDY: CT of the abdomen and pelvis September 27, 2021. KUB October 08, 2021. TECHNIQUE: Following IV administration of 93 mL of Optiray, axial images of the abdomen and pelvis we re obtained from the lung bases to the proximal femurs. Images were reviewed in the axial, sagittal, and coronal planes. IV contrast was administered without complication. Automated exposure control wa s utilized for the study. A dose lowering technique was utilized adhering to the principles of ALARA . CT DOSE: 279.76 mGy.cm FINDINGS: Emphysema is noted within the lower lungs. No pneumatosis, free air or portal venous gas is present. The liver, spleen, adrenal glands, kidneys and pancreas are unremarkable. Calcified granulo mas within the spleen are present. No evidence for a bowel obstruction. Note is made of marked wall t hickening of the rectum, sigmoid colon and descending colon. There is moderate wall thickening of the transverse colon and ascending colon. Findings have progressed when compared to CT of September 27, 2021 . No abscess. There is pericolonic stranding and fluid. No lymphadenopathy is present. No acute fract ure is identified. 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 Extensive a ortoiliac atherosclerotic plaque is noted. Bladder wall thickening with adjacent stranding is similar to prior exam. IMPRESSION: Findings consistent with a severe proctocolitis, as detailed above. Marked colorectal wa ll thickening which has progressed since prior CT of September 27, 2021. Pericolonic stranding and fluid. No free air or abscess. The appearance raises the possibility of C. difficile colitis. ACT 112: Negative or not required by law. Electronically signed by: Charles Littlejohn M.D. 12/05/2021 5:24 PM
[2021-12-05] MEDS ORDERED: RASPBERRY SYRUP 5 ML UDP PO STA (17:37)
[2021-12-05] MEDS ORDERED: VANCOMYCIN HCL 250 MG/5 ML SOLN PO STA (17:37)
[2021-12-05] MEDS ORDERED: POTASSIUM CHLORIDE CRTAB 20 MEQ TABCR PO STA (19:38)
[2021-12-05] MEDS ORDERED: LACTATED RINGER'S 1,000 ML IV ONE (19:38)
--- NOTE | 2021-12-05 20:07 | History & Physical Report ---
Date of Service December 05, 2021 Assessment & Plan (1) Severe sepsis: Plan: SIRS plus ARF Proctocolitis on CT Possible recurrent C. difficile Status post Dificid course and oral vancomycin taper from last admission chronic respiratory failure secondary to COPD on home O2, at baseline chronic anemia, hemoglobin better than baseline likely secondary to give consideration alcohol abuse as per records, last drink was 3 days ago as per patient Hypokalemia secondary to diarrhea Malnutrition (low BMI) past tobacco abuse Medical telemetry given hypotension upon arrival at the ER Follow stool C. difficile Flagyl 1 dose for now given severe sepsis criteria Monitor creatinine response to IVF SANJIV S, DT precautions Replace potassium Nutrition consult already low BMI DVT prophylaxis. Heparin subcu Full code ADDENDUM : Stool C. difficile positive Dificid course and C ID consult for second recurrence Text document was generated using [employer] voice recognition software. It may contain grammatical or spelling errors. Kindly contact undersigned for clarification of any documentation item in question. History of Present Illness Chief Complaint: Abdominal pain, worsening diarrhea Primary Care Provider: GARRETT Kaiser History obtained from patient and records. Medical history significant for chronic respiratory failure secondary to COPD on home O2, recurrent C. difficile, chronic anemia ( baseline hemoglobin 9), alcohol abuse as per records, past tobacco abuse. Last confinement September 27 to October 10, 2021 for sepsis secondary to recurrent C. difficile. Proctocolitis noted on CT. Surgery recommended transfer to tertiary care facility due to lactic acidosis but patient declined. Patient completed Dificid course and later discharged on oral vancomycin taper. 2 weeks ago, patient noted watery diarrhea symptoms with escalating achy abdominal pain all over. No chest pain, no shortness of breath. No fever, no chills. Some nausea without vomiting. Patient given oral vancomycin 1 dose at the ER for presumptive C. difficile. Initial SBP at the ER 80s. 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 Allergies Allergy/AdvReac Type Severity Reaction Status Date / Time No Known Allergies Allergy Verified 12/05/21 16:53 Home Medications Medication Instructions Recorded Confirmed Type albuterol sulfate 90 mcg/actuation 2 puffs INH Q4H PRN ea 04/11/19 12/05/21 History breath activated powder inhaler (ProAir RespiClick) folic acid 1 mg tablet 1 mg PO QAM tab 04/11/19 12/05/21 History roflumilast 500 mcg tablet 500 mcg PO QAM 04/11/19 12/05/21 History (Daliresp) thiamine HCl (vitamin B1) 100 mg 100 mg PO QAM 04/11/19 12/05/21 History tablet cyanocobalamin (vitamin B-12) 100 100 mcg PO DAILY 08/23/21 12/05/21 History mcg tablet fluticasone 250 mcg-salmeterol 50 1 inh INHALATION BID 08/23/21 12/05/21 History mcg/dose blistr powdr for inhalation (Advair Diskus) acetaminophen 500 mg tablet 500 mg PO Q4H PRN 09/27/21 12/05/21 History (Tylenol Extra Strength) famotidine 10 mg tablet 10 mg PO BID 09/27/21 12/05/21 History ipratropium bromide 0.02 % 2.5 ml INHALATION TID PRN 09/27/21 12/05/21 History solution for inhalation levalbuterol HCl 1.25 mg/3 mL 1.25 mg INHALATION TID 09/27/21 12/05/21 History solution for nebulization (Xopenex) multivitamin with minerals 1 tab PO DAILY 09/27/21 12/05/21 History omeprazole 40 mg capsule,delayed 40 mg PO DAILYBB 09/27/21 12/05/21 History release potassium chloride 20 mEq 20 meq PO DAILY 09/27/21 12/05/21 History tablet,extended release cholestyramine (with sugar) 4 gram 4 g PO DAILY #348.6 g 10/09/21 12/05/21 Rx oral powder (Questran) ipratropium 20 mcg-albuterol 100 1 puff INHALATION QID 12/05/21 12/05/21 History mcg/actuation mist for inhalation (Combivent Respimat) Past Med/Surg History Medical History Chronic obstructive pulmonary disease Chronic respiratory failure COPD exacerbation Elevated troponin I level Fibrosis of lung GERD with esophagitis History of alcohol abuse History of tobacco use Hypomagnesemia On home oxygen therapy WEARS O2 AT 2L CONT. Oxygen dependent Pulmonary hypertension Surgical History History of right cataract surgery History of tooth extraction Family History Mother Diverticulitis Father COPD (chronic obstructive pulmonary disease) Dad was a smoker Social History Smoking Status: Former smoker Tobacco Type: E-cigarettes / Vaping Second Hand Exposure: Yes; Hx Alcohol Use: Yes Alcohol type: beer Hx Substance Use: No Preferred Language: [place] Communication Ability: Effective Adolescent Medicine Specialist Required: No Beliefs That Will Affect Care: None Current Living Situation: Spouse Other Information That Helps Us Care for You: No Feels Safe at Home: Yes Safety Concerns: Feels Safe At This Time Assistive Devices: Cane, Denture - Upper, Denture - Lower, Glasses, Oxygen - Continuous, Walker and Wheelchair Review of Systems Review of Systems: As per HPI, all other systems reviewed and negative Physical Exam Physical Exam: GENERAL: Slightly uncomfortable, underweight, no respiratory distress SKIN: Pallor, warm HEENT: Pale palpebral conjunctivae, no ptosis, dry buccal mucosa, nasal cannula in place NECK : Supple, no tenderness CHEST : Decreased breath sounds, no tenderness HEART : RRR, no obvious murmurs ABDOMEN: Some distention, central abdominal tenderness EXTREMITIES : No LE swelling/tenderness, no other conspicuous deformities noted NEUROLOGIC : Coherent, no facial asymmetry, no other gross focality Results & Data Results & Data ([facility]) Vital Signs (Past 12 Hours) Vital Signs Temp Pulse Pulse Resp BP BP Pulse Ox 12/05/21 18:01 76 75 20 127/62 127/62 100 12/05/21 16:30 80 36 H 98 12/05/21 16:20 88 15 99 12/05/21 16:10 96 H 12 95 12/05/21 16:00 86 22 100 12/05/21 15:50 90 17 96 12/05/21 15:40 93 H 24 98 12/05/21 15:33 99 H 16 100 12/05/21 14:25 36.6 C 100 H 16 82/52 L 96 Laboratory Results Laboratory Results WBC 27.84 K/uL (4.8-10.8) H 12/05/21 14:49 RBC 3.80 M/uL (4.7-6.1) L 12/05/21 14:49 Hgb 11.4 g/dL (14.0-18.0) L 12/05/21 14:49 Hct 34.6 % (42-52) L 12/05/21 14:49 MCV 91.1 fL (80-100) 12/05/21 14:49 MCH 30.0 pg (25-34) 12/05/21 14:49 MCHC 32.9 g/dL (32-36) 12/05/21 14:49 RDW Std Deviation 49.9 fL (36.4-46.3) H 12/05/21 14:49 RDW Coeff of Julissa 14.9 % (11.5-14.5) H 12/05/21 14:49 Plt Count 341 K/uL (130-400) 12/05/21 14:49 MPV 9.1 fL (7.4-10.4) 12/05/21 14:49 Immature Gran % (Auto) 0.6 % 12/05/21 14:49 Neut % (Auto) 88.9 % 12/05/21 14:49 Lymph % (Auto) 5.2 % 12/05/21 14:49 Hickman % (Auto) 5.1 % 12/05/21 14:49 Eos % (Auto) 0.1 % 12/05/21 14:49 Baso % (Auto) 0.1 % 12/05/21 14:49 Neut # (Auto) 24.71 K/uL (1.4-6.5) H 12/05/21 14:49 Lymph # (Auto) 1.46 K/uL (1.2-3.4) 12/05/21 14:49 Hickman # (Auto) 1.43 K/uL (0.11-0.59) H 12/05/21 14:49 Eos # (Auto) 0.03 K/uL (0-0.5) 12/05/21 14:49 Baso # (Auto) 0.03 K/uL (0-0.2) 12/05/21 14:49 Immature Gran # (Auto) 0.18 K/uL (0.00-0.02) H 12/05/21 14:49 PT 11.2 Seconds (9.0-12.0) 12/05/21 14:49 INR 1.1 (0.9-1.1) 12/05/21 14:49 APTT 28.6 Seconds (21.0-31.0) 12/05/21 14:49 PTT Ratio 1.0 12/05/21 14:49 Sodium 135 mmol/L (136-145) L 12/05/21 14:49 Potassium 3.3 mmol/L (3.5-5.1) L 12/05/21 14:49 Chloride 99 mmol/L (98-107) 12/05/21 14:49 Carbon Dioxide 24 mmol/L (21-32) 12/05/21 14:49 Anion Gap 12 (3-11) H 12/05/21 14:49 BUN 44 mg/dl (6-23) H 12/05/21 14:49 Creatinine 1.41 mg/dl (0.6-1.4) H 12/05/21 14:49 Est Cr Clr Drug Dosing 27.0 ml/min 12/05/21 14:49 Est GFR ( Amer) 54.5 ml/min 12/05/21 14:49 Est GFR (Non-Af Amer) 47.0 ml/min 12/05/21 14:49 BUN/Creatinine Ratio 31.2 (10-20) H 12/05/21 14:49 Glucose 144 mg/dl (70-99(Fasting)) H 12/05/21 14:49 Calcium 8.9 mg/dl (8.5-10.1) 12/05/21 14:49 Magnesium 1.7 mg/dl (1.7-2.4) 12/05/21 14:49 Total Bilirubin 0.5 mg/dl (0.2-1.0) 12/05/21 14:49 AST 9 U/L (13-39) L 12/05/21 14:49 ALT 6 U/L (7-52) L 12/05/21 14:49 Alkaline Phosphatase 126 U/L (34-104) H 12/05/21 14:49 Troponin I High Sens 13.7 pg/ml (0-20) 12/05/21 14:49 Total Protein 6.9 gm/dl (6.0-8.3) 12/05/21 14:49 Albumin 3.3 gm/dl (3.4-5.0) L 12/05/21 14:49 Globulin 3.6 gm/dl (2.5-4.0) 12/05/21 14:49 Albumin/Globulin Ratio 0.9 (0.9-2) 12/05/21 14:49 Random Cortisol 23.30 mcg/dl 12/05/21 16:06 SARS-CoV-2, RNA, NAAT NEGATIVE (NEGATIVE) 12/05/21 18:05 Impressions Abdomen/Pelvis CT 12/05/21 15:11 CT OF THE ABDOMEN AND PELVIS WITH CONTRAST CLINICAL HISTORY: Lower abdominal pain. COMPARISON STUDY: CT of the abdomen and pelvis September 27, 2021. KUB October 08, 2021. TECHNIQUE: Following IV administration of 93 mL of Optiray, axial images of the abdomen and pelvis were obtained from the lung bases to the proximal femurs. Images were reviewed in the axial, sagittal, and coronal planes. IV contrast was administered without complication. Automated exposure control was utilized for the study. A dose lowering technique was utilized adhering to the principles of ALARA. CT DOSE: 279.76 mGy.cm FINDINGS: Emphysema is noted within the lower lungs. No pneumatosis, free air or portal venous gas is present. The liver, spleen, adrenal glands, kidneys and pancreas are unremarkable. Calcified granulomas within the spleen are present. No evidence for a bowel obstruction. Note is made of marked wall thickening of t he rectum, sigmoid colon and descending colon. There is moderate wall thickening of the transverse colon and ascending colon. Findings have progressed when compared to CT of September 27, 2021. No abscess. There is pericolonic stranding and fluid. No lymphadenopathy is present. No acute fracture is identified. 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 Extensive aortoiliac atherosclerotic plaque is noted. Bladder wall thickening with adjacent stranding is similar to prior exam. IMPRESSION: Findings consistent with a severe proctocolitis, as detailed above. Marked colorectal wall thickening which has progressed since prior CT of September 27, 2021. Pericolonic stranding and fluid. No free air or abscess. The appearance raises the possibility of C. difficile colitis. ACT 112: Negative or not required by law. Electronically signed by: Charles Littlejohn M.D. 12/05/2021 5:24 PM Chest X-Ray 12/05/21 15:11 XR chest 1V portable CLINICAL HISTORY: Atypical chest pain. COMPARISON STUDY: Chest CT April 16, 2021. Chest radiograph September 28, 2021. FINDINGS: Severe emphysema is noted. There is no pneumothorax or pleural eff usion. Interstitial thickening is unchanged. This is chronic. No superimposed consolidation. No evidence for pulmonary edema. Cardiac size is normal. Mediastinal contours are normal. Appearance of the chest is unchanged. IMPRESSION: 1. No acute cardiopulmonary findings. No change in appearance of the chest. 2. Severe emphysema. ACT 112: Negative or not required by law. Electronically signed by: Charles Littlejohn M.D. 12/05/2021 4:13 PM Diagnostic Findings EKG as per my interpretation: Rate 115, sinus tachycardia, normal axis, short PA, T wave abnormalities inferior leads
[2021-12-05] MEDS ORDERED: PROMETHAZINE HCL 6.25 MG in SODIUM CHLORIDE 0.9% 50 ML IV PRN (21:49)
[2021-12-05] MEDS ORDERED: ACETAMINOPHEN 325 MG TAB PO PRN (21:49)
[2021-12-05] MEDS ORDERED: LORazepam 1 MG in SYRINGE 0.5 ML IV PRN (21:49)
[2021-12-05] MEDS ORDERED: oxyCODONE HCL IR 5 MG TAB (IMMEDIATE RELEASE) PO PRN (21:49)
[2021-12-05] MEDS ORDERED: ATIVAN IV ALCOHOL WITHDRAWL IV PRN (21:49)
[2021-12-05] MEDS ORDERED: LORazepam 3 MG in SYRINGE 1.5 ML IV PRN (21:49)
[2021-12-05] MEDS ORDERED: LORazepam 2 MG in SYRINGE 1 ML IV PRN (21:49)
[2021-12-05] MEDS ORDERED: metroNIDAZOLE 500 MG/100 ML BAG IV STA (22:51)
[2021-12-05] MEDS: FAMOTIDINE 10 MG TABLET PO SCH (23:12)
[2021-12-05] MEDS: HEPARIN SOD 5,000 UNIT/0.5 ML VIAL SQ SCH (23:12)
[2021-12-05] MEDS: FLUTICASONE/VILANTEROL 100/25MCG 14 PUFFS/INHALER INH SCH (23:12)
[2021-12-06 02:18] LABS: Appearance Urine Cloudy (Clear); Bilirubin Urine Negative (Negative); Blood Urine 1+ (Negative); Color Urine Yellow; Glucose Urine UA Negative (Negative); Ketones Urine Negative (Negative); Leukocyte Esterase Urine 2+ (Negative); Nitrite Urine Negative (Negative); Protein Urine 1+ (Negative); Specific Gravity Urine > 1.045 (1.000-1.030); Urobilinogen Urine Negative (Negative); WBC Urine Automated >30 /hpf (0-5)
[2021-12-06 02:39] LABS: Bacteria Urine Automated 1+ (Negative); RBC Urine Automated 0-4 /hpf (0-4)
[2021-12-06 03:35] LABS: Adenovirus F 40/41 PCR Not Detected (NotDetected); Astrovirus PCR Not Detected (NotDetected); Campylobacter PCR Not Detected (NotDetected); Cryptosporidium PCR Not Detected (NotDetected); Cyclospora cayetanensis PCR Not Detected (NotDetected); Entamoeba histolytica PCR Not Detected (NotDetected); Enteroaggregative E.coli(EAEC) Not Detected (NotDetected); Enteropathogenic E.coli (EPEC) Not Detected (NotDetected); Enterotoxigenic E.coli (ETEC) Not Detected (NotDetected); Giardia lamblia PCR Not Detected (NotDetected); Norovirus GI/GII PCR Not Detected (NotDetected); Plesiomonas shigelloides PCR Not Detected (NotDetected); Rotavirus A PCR Not Detected (NotDetected); Salmonella PCR Not Detected (NotDetected); Sapovirus PCR Not Detected (NotDetected); Shiga-like Toxin E.coli (STEC) Not Detected (NotDetected); Shigella/Enteroinvasive E.coli Not Detected (NotDetected); Vibrio cholerae PCR Not Detected (NotDetected); Vibrio species PCR Not Detected (NotDetected); Yersinia enterocolitica PCR Not Detected (NotDetected)
[2021-12-06 04:21] LABS: Cdiff Antigen Positive
[2021-12-06 04:22] LABS: Cdiff Toxin A+B Positive Cdiff Toxin (Negative)
[2021-12-06] MEDS: HEPARIN SOD 5,000 UNIT/0.5 ML VIAL SQ SCH ×3 (07:12→21:59)
[2021-12-06] MEDS: FIDAXOMICIN 200 MG TAB PO SCH ×2 (07:12→21:58)
[2021-12-06] MEDS: PANTOprazole 40 MG TAB PO SCH (07:13)
[2021-12-06] MEDS: LEVALBUTEROL HCL 1.25 MG/3 ML NEB INH SCH ×3 (07:24→19:44)
[2021-12-06 07:36] LABS: Basophils # (auto) 0.01 K/uL (0-0.2); Basophils % (auto) 0.1 %; Eosinophils # (auto) 0.05 K/uL (0-0.5); Eosinophils % (auto) 0.3 %; Hematocrit (blood only) 27.5 % (42-52); Hemoglobin 9.1 g/dL (14.0-18.0); Immature Granulocytes # (auto) 0.17 K/uL (0.00-0.02); Immature Granulocytes % (auto) 0.9 %; Lymphocytes # (auto) 1.05 K/uL (1.2-3.4); Lymphocytes % (auto) 5.3 %; Mean Corpuscular Hemoglobin 29.5 pg (25-34); Mean Corpuscular Hgb Conc 33.1 g/dL (32-36); Mean Corpuscular Volume 89.3 fL (80-100); Mean Platelet Volume 9.1 fL (7.4-10.4); Monocytes # (auto) 1.61 K/uL (0.11-0.59); Monocytes % (auto) 8.1 %; Neutrophils # (auto) 17.05 K/uL (1.4-6.5); Neutrophils % (auto) 85.3 %; Platelet Count 269 K/uL (130-400); RDW Coefficient of Variation 14.8 % (11.5-14.5); RDW Standard Deviation 48.5 fL (36.4-46.3); Red Blood Count 3.08 M/uL (4.7-6.1); White Blood Count 19.94 K/uL (4.8-10.8)
[2021-12-06] MEDS: POTASSIUM CHLORIDE / WTR 10 MEQ/100 ML PLCT IV SCH ×4 (07:46→12:40)
[2021-12-06 07:56] LABS: BUN Creatinine Ratio 34.9 (10-20); Calcium 7.8 mg/dl (8.5-10.1); Creatinine Clr Calc Pharmacy 43.5 ml/min; Est GFR (African American) 95.6 ml/min; Est GFR (Non-African American) 82.5 ml/min; Potassium 3.5 mmol/L (3.5-5.1)
[2021-12-06] MEDS: FAMOTIDINE 10 MG TABLET PO SCH ×2 (07:56→21:58)
[2021-12-06] MEDS: FOLIC ACID 1 MG TAB PO SCH (07:56)
[2021-12-06] MEDS: CEROVITE ADV FORMULA TAB PO SCH (07:56)
[2021-12-06] MEDS: CYANOCOBALAMIN (B-12) 100 MCG TABLET PO SCH (07:57)
[2021-12-06] MEDS: THIAMINE HCL 100 MG TAB PO SCH (07:57)
[2021-12-06] MEDS: ROFLUMILAST 500 MCG TAB PO SCH (07:57)
[2021-12-06] MEDS: FLUTICASONE/VILANTEROL 100/25MCG 14 PUFFS/INHALER INH SCH (21:58)
[2021-12-07] MEDS: HEPARIN SOD 5,000 UNIT/0.5 ML VIAL SQ SCH ×3 (06:14→20:45)
[2021-12-07] MEDS: PANTOprazole 40 MG TAB PO SCH (06:15)
[2021-12-07] MEDS: LEVALBUTEROL HCL 1.25 MG/3 ML NEB INH SCH (07:31)
--- NOTE | 2021-12-07 07:34 | Hospitalist Progress Note ---
Date of Service December 07, 2021 Assessment & Plan (1) Sepsis: Plan: Sources C. 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 Dificid has been started with decreased leukocytosis and clinical improvement generally. Diarrhea is still present with some abdominal pain still present. Infectious disease consulted for definitive recommendations. Stick to diet low in dairy products or caffeine which may stimulate the bowels. Patient was educated on this. Monitor electrolytes with ongoing diarrhea. Continue IV fluid replacement for now. Daily BMP. (3) Severe protein-calorie malnutrition: Plan: Nutrition has seen the patient and is supplementing with meals. Continue monitoring caloric intake. Currently patient has a good appetite. (4) Chronic respiratory failure with hypoxia: Plan: Secondary to COPD, chronic, stable. Continue daily Roflumilast And Breo nightly. (5) COPD (chronic obstructive pulmonary disease): Plan: Chronic, stable, as above. (6) Hypomagnesemia: Plan: Secondary to diarrhea, replace today with 4 g of mag, repeat level in a.m. (7) Hypokalemia: Plan: 2/2 ongoing diarrhea, Replace and repeat in am (8) ETOH abuse: Plan: History of alcohol abuse but with multiple hospital stays, alcohol intake has b een minimal. No signs or symptoms of withdrawal at this time. Continue CIWA assessment regularly. (9) DVT prophylaxis: Plan: Heparin Full code Disposition-pending clinical improvement and infectious disease results. Also pending PT/OT evaluations. Yesi Lopez DO [facility] Hospitalist Admission and Anticipated Discharge Date Admission Date: December 05, 2021 Subjective 81 yo M Presented to the ER for evaluation of abdominal pain and diarrhea. Given his history of C. difficile colitis he was placed on isolation. He had no fever, back pain or chest pain but did report diarrhea with some possible de hydration clinically. Since admission he has improved with some abdominal pain still present and diarrhea still ongoing. He is tolerating food without issue and remains afebrile. Lab work is also improved. On review of systems he did mention some intermittent sharp pain in his right cheek that seemed to travel from his ear to his mandibular sinus. He denies any congestion or runny nose at this time, but this has been present in the past. He is on chronic oxygen for COPD. Evaluation of ears, sinuses and throat are normal. Recommended this issue be further worked up in the clinic once his abdominal infection was cleared up. Review of Systems Review of Systems: All systems reviewed negative except as indicated above. Physical Exam Physical Exam: CONSTITUTIONAL: thin, frail, vitals as above, generally well- appearing, NAD EYES: normal conjunctivae, no scleral icterus ENT: external ear and nose normal, oropharynx clear, TM are flat and appear dark but there is no middle ear fluid or erythema present, no maxillary or ethmoid sinus tenderness NECK: trachea midline, no lymphadenopathy RESPIRATORY: clear to auscultation bilaterally with very diminished breath sounds, no crackles, rales or wheezes, normal respiratory effort CARDIOVASCULAR: regular rate and rhythm, S1 and 2 heard without murmurs, gallops or rubs, no JVD, no peripheral edema CHEST: inspection of chest was normal GASTROINTESTINAL: soft, diffuse tenderness, no guarding MUSCULOSKELETAL: strength 5/5 throughout, head is normocephalic and atraumatic, neck supple, normal palpation of chest wall without tenderness SKIN: warm and dry NEUROLOGIC: CN 2-12 grossly intact, no sensory deficit, normal cognition, normal speech, no tremor PSYCHIATRIC: alert cooperative and oriented to person, place and time. Euthymic mood, makes good eye contact, language grossly intact, recent and remote memory grossly intact. Results & Data Results & Data ([facility]) Vital Signs (Past 12 Hours) Vital Signs Temp Pulse Resp BP Pulse Ox 12/07/21 07:32 78 18 99 12/07/21 03:19 36.7 C 76 18 100/53 L 100 12/06/21 23:07 36.7 C 83 20 101/59 L 100 12/06/21 19:45 80 18 98 Laboratory Results Short CBC 12/06/21 Range/Units 06:54 WBC 19.94 H (4.8-10.8) K/uL Hgb 9.1 L (14.0-18.0) g/dL Hct 27.5 L (42-52) % Plt Count 269 (130-400) K/uL BMP 12/06/21 06:54 Sodium 136 Potassium 3.5 Chloride 107 Carbon Dioxide 23 BUN 30 H Creatinine 0.86 D Glucose 112 H Calcium 7.8 L Medications Administered Current Inpatient Medications Acetaminophen (Acetaminophen 325 Mg Tab) 650 mg PO Q4H PRN PRN Reason: Pain or Fever Stop: 01/04/22 21:48 Cyanocobalamin (Cyanocobalamin (B-12) 100 Mcg Tablet) 100 mcg PO DAILY [facility] Stop: 01/05/22 08:59 Last Admin: 12/06/21 07:57 Dose: 100 mcg Documented by: Famotidine (Famotidine 10 Mg Tablet) 10 mg PO BID [facility] Stop: 01/04/22 21:48 Last Admin: 12/06/21 21:58 Dose: 10 mg Documented by: Fidaxomicin (Fidaxomicin 200 Mg Tab) 200 mg PO BID [facility] Stop: 12/16/21 04:39 Last Admin: 12/06/21 21:58 Dose: 200 mg Documented by: Fluticasone/Vilanterol (Fluticasone/Vilanterol 100/25mcg 14 Puffs/Inhaler) 1 puffs INH HS [facility] Stop: 01/04/22 21:59 Last Admin: 12/06/21 21:58 Dose: 1 puffs Documented by: Folic Acid (Folic Acid 1 Mg Tab) 1 mg PO QAM [facility] Stop: 01/05/22 08:59 Last Admin: 12/06/21 07:56 Dose: 1 mg Documented by: Heparin Sodium (Porcine) (Heparin Sod 5,000 Unit/0.5 Ml Vial) 5,000 units SQ Q8 [facility] Stop: 01/04/22 21:59 Last Admin: 12/07/21 06:14 Dose: 5,000 units Documented by: Promethazine HCl 6.25 mg/ (Sodium Chloride) 50.25 mls @ 201 mls/hr IV Q6H PRN PRN Reason: Nausea And Vomiting Stop: 01/04/22 21:48 Lorazepam 1 mg/ Syringe 1 mls @ 2 mls/min IV UD PRN; Protocol PRN Reason: EtOH Withdrawal AWSS Score 6,7 Stop: 01/04/22 21:48 Lorazepam 2 mg/ Syringe 2 mls @ 2 mls/min IV UD PRN; Protocol PRN Reason: EtOH Withdrawal AWSS Score 8,9 Stop: 01/04/22 21:48 Lorazepam 3 mg/ Syringe 3 mls @ 2 mls/min IV ONCE PRN; Protocol PRN Reason: EtOH Withdrawal AWSS Score >=10 Stop: 01/04/22 21:48 Levalbuterol HCl (Levalbuterol Hcl 1.25 Mg/3 Ml Neb) 1.25 mg INH TIDR [facility]; Protocol Stop: 01/05/22 06:59 Last Admin: 12/07/21 07:31 Dose: 1.25 mg Documented by: Multivitamins/Minerals (Cerovite Adv Formula Tab) 1 tab PO DAILY [facility] Stop: 01/05/22 08:59 Last Admin: 12/06/21 07:56 Dose: 1 tab Documented by: Oxycodone HCl (Oxycodone Hcl Ir 5 Mg Tab (Immediate Release)) 5 mg PO Q4H PRN PRN Reason: Pain Stop: 12/19/21 21:48 Last Admin: 12/06/21 08:42 Dose: 5 mg Documented by: Pantoprazole Sodium (Pantoprazole 40 Mg Tab) 40 mg PO DAILYBB [facility] Stop: 01/05/22 06:29 Last Admin: 12/07/21 06:15 Dose: 40 mg Documented by: Roflumilast (Roflumilast 500 Mcg Tab) 500 mcg PO QAM [facility] Stop: 01/05/22 08:59 Last Admin: 12/06/21 07:57 Dose: 500 mcg Documented by: Thiamine HCl (Thiamine Hcl 100 Mg Tab) 100 mg PO QAM [facility] Stop: 01/05/22 08:59 Last Admin: 12/06/21 07:57 Dose: 100 mg Documented by: (1) Sepsis Sepsis acute organ dysfunction status: unspecified Sepsis type: sepsis due to unspecified organism Qualified Code(s): A41.9 - Sepsis, unspecified organism
[2021-12-07] MEDS ORDERED: LEVALBUTEROL HCL 1.25 MG/3 ML NEB INH PRN (08:08)
[2021-12-07 08:50] LABS: Basophils # (auto) 0.01 K/uL (0-0.2); Basophils % (auto) 0.1 %; Eosinophils # (auto) 0.34 K/uL (0-0.5); Hematocrit (blood only) 29.3 % (42-52); Hemoglobin 9.5 g/dL (14.0-18.0); Immature Granulocytes # (auto) 0.11 K/uL (0.00-0.02); Lymphocytes # (auto) 1.83 K/uL (1.2-3.4); Lymphocytes % (auto) 16.3 %; Mean Corpuscular Hemoglobin 29.8 pg (25-34); Mean Corpuscular Hgb Conc 32.4 g/dL (32-36); Mean Corpuscular Volume 91.8 fL (80-100); Mean Platelet Volume 9.2 fL (7.4-10.4); Monocytes # (auto) 0.68 K/uL (0.11-0.59); Monocytes % (auto) 6.1 %; Neutrophils # (auto) 8.23 K/uL (1.4-6.5); Neutrophils % (auto) 73.5 %; Platelet Count 262 K/uL (130-400); RDW Coefficient of Variation 14.7 % (11.5-14.5); RDW Standard Deviation 49.9 fL (36.4-46.3); Red Blood Count 3.19 M/uL (4.7-6.1)
[2021-12-07] MEDS: LACTATED RINGER'S 1,000 ML IV SCH (08:55)
[2021-12-07 09:01] LABS: BUN Creatinine Ratio 26.8 (10-20); Calcium 8.5 mg/dl (8.5-10.1); Creatinine Clr Calc Pharmacy 53.5 ml/min; Est GFR (African American) 103.4 ml/min; Est GFR (Non-African American) 89.2 ml/min; Magnesium 1.4 mg/dl (1.7-2.4); Phosphorus 2.4 mg/dl (2.5-4.9); Potassium 3.1 mmol/L (3.5-5.1)
[2021-12-07] MEDS: FIDAXOMICIN 200 MG TAB PO SCH ×2 (09:02→21:40)
[2021-12-07] MEDS: THIAMINE HCL 100 MG TAB PO SCH (09:03)
[2021-12-07] MEDS: CYANOCOBALAMIN (B-12) 100 MCG TABLET PO SCH (09:03)
[2021-12-07] MEDS: ROFLUMILAST 500 MCG TAB PO SCH (09:03)
[2021-12-07] MEDS: CEROVITE ADV FORMULA TAB PO SCH (09:04)
[2021-12-07] MEDS: FAMOTIDINE 10 MG TABLET PO SCH ×2 (09:04→20:46)
[2021-12-07] MEDS: FOLIC ACID 1 MG TAB PO SCH (09:04)
[2021-12-07] MEDS: POTASSIUM CHLORIDE PWD 20 MEQ PACK PO SCH ×2 (11:31→17:47)
[2021-12-07] MEDS: MAGNESIUM SULFATE / D5W 1 GM/100 ML BAG IV SCH ×4 (11:31→17:50)
[2021-12-07] MEDS: FLUTICASONE/VILANTEROL 100/25MCG 14 PUFFS/INHALER INH SCH (20:46)
[2021-12-08] MEDS: LACTATED RINGER'S 1,000 ML IV SCH ×2 (01:13→20:49)
[2021-12-08] MEDS: HEPARIN SOD 5,000 UNIT/0.5 ML VIAL SQ SCH ×3 (05:23→20:41)
[2021-12-08] MEDS: PANTOprazole 40 MG TAB PO SCH (05:24)
[2021-12-08 07:24] LABS: Hematocrit (blood only) 28.3 % (42-52); Hemoglobin 9.2 g/dL (14.0-18.0); Mean Corpuscular Hemoglobin 29.1 pg (25-34); Mean Corpuscular Hgb Conc 32.5 g/dL (32-36); Mean Corpuscular Volume 89.6 fL (80-100); Platelet Count 256 K/uL (130-400); RDW Coefficient of Variation 14.7 % (11.5-14.5); RDW Standard Deviation 48.5 fL (36.4-46.3); Red Blood Count 3.16 M/uL (4.7-6.1); White Blood Count 8.19 K/uL (4.8-10.8)
[2021-12-08 08:19] LABS: BUN Creatinine Ratio 21.2 (10-20); Calcium 7.9 mg/dl (8.5-10.1); Creatinine Clr Calc Pharmacy 59.9 ml/min; Est GFR (African American) 106.6 ml/min; Magnesium 1.8 mg/dl (1.7-2.4); Phosphorus 2.1 mg/dl (2.5-4.9); Potassium 3.3 mmol/L (3.5-5.1)
[2021-12-08] MEDS: FIDAXOMICIN 200 MG TAB PO SCH ×2 (09:44→20:40)
[2021-12-08] MEDS: ROFLUMILAST 500 MCG TAB PO SCH (09:44)
[2021-12-08] MEDS: CEROVITE ADV FORMULA TAB PO SCH (09:44)
[2021-12-08] MEDS: FOLIC ACID 1 MG TAB PO SCH (09:44)
[2021-12-08] MEDS: CYANOCOBALAMIN (B-12) 100 MCG TABLET PO SCH (09:44)
[2021-12-08] MEDS: FAMOTIDINE 10 MG TABLET PO SCH ×2 (09:44→20:50)
[2021-12-08] MEDS: THIAMINE HCL 100 MG TAB PO SCH (09:44)
[2021-12-08] MEDS: SIMETHICONE 80 MG CHEW PO PRN (10:34)
[2021-12-08] MEDS ORDERED: POTASSIUM PHOS 3 MMOL/1 ML INFUSION IV STA (13:45)
--- NOTE | 2021-12-08 13:45 | Hospitalist Progress Note ---
Date of Service December 08, 2021 Assessment & Plan (1) Sepsis: Plan: Sources C. 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 Dificid has been started with decreased leukocytosis and clinical improvement generally. Diarrhea is still present with some abdominal pain still present. Infectious disease consulted for definitive recommendations. Stick to diet low in dairy products or caffeine which may stimulate the bowels. Monitor electrolytes with ongoing diarrhea. Continue IV fluid replacement for now. Daily BMP. Condition has not improved and he still has abdominal pain and diarrhea Electrolytes remained remarkable for low potassium Will administer regular potassium meter BMP Awaiting ID input and recommendation (3) Severe protein-calorie malnutrition: Plan: Nutrition has seen the patient and is supplementing with meals. Continue monitoring caloric intake. Currently patient has a good appetite. (4) Chronic respiratory failure with hypoxia: Plan: Secondary to COPD, chronic, stable. Continue daily Roflumilast And Breo nightly. (5) COPD (chronic obstructive pulmonary disease): Plan: Chronic, stable, as above. No acute exacerbation (6) Hypomagnesemia: Plan: Secondary to diarrhea, replace today with 4 g of mag, repeat level in a.m. (7) Hypokalemia: Plan: 2/2 ongoing diarrhea, Replace and repeat in am Has hypophosphatemia as well Will give intravenous potassium phosphate (8) ETOH abuse: Plan: History of alcohol abuse but with multiple hospital stays, alcohol intake has been minimal. No signs or symptoms of withdrawal at this time. Continue CIWA assessment regularly. (9) DVT prophylaxis: Plan: Heparin Full code Disposition-pending clinical improvement and infectious disease results. Also pending PT/OT evaluations. Admission and Anticipated Discharge Date Admission Date: December 05, 2021 Subjective 12/08/2021 The patient was seen and examined in medical telemetry unit He complains to have some abdominal pain without nausea and or vomiting He has persistent diarrhea and had been to toilet 3 or 4 times since this morning No fever and no chills Review of Systems Review of Systems: All systems reviewed and are unremarkable except as noted below Gastrointestinal: Abdominal pain without nausea and or vomiting Physical Exam Physical Exam: Lying in bed at with some discomfort due to abdominal discomfort and pain Constitutional: + ill appearing and + thin Eyes: PERRL, conjunctivae normal, anicteric sclerae ENMT: external ear and nose normal, oropharynx normal Neck: trachea midline, no thyromegaly Respiratory: no respiratory distress Auscultation: lungs clear to auscultat ion bilaterally Cardiovascular: Rate/Rhythm: regular rate and regular rhythm; not tachycardic Heart Sounds: normal S1 and normal S2; no murmur Extremities: no edema Gastrointestinal (Abdomen): Inspection/Auscultation: + abdomen distended (Minimally distended) and normal bowel sounds Percussion/Palpation: + abdomen tender (Tender mostly lower quadrants without guarding and no rigidity) and abdomen soft Musculoskeletal: No acute arthritis involving any joint Neurologic: normal touch/pain/proprioception and moves all extremities Generally very weak and lethargic Lymphatic: no cervical or axillary lymphadenopathy Results & Data Results & Data ([facility]) Vital Signs (Past 12 Hours) Vital Signs Temp Pulse Pulse Pulse Resp BP Pulse Ox 12/08/21 11:17 36.4 C L 71 18 107/63 99 12/08/21 10:22 55 L 12/08/21 08:00 36.2 C L 76 20 118/67 99 12/08/21 02:03 36.5 C 64 20 118/62 98 Laboratory Results Short CBC 12/08/21 Range/Units 07:09 WBC 8.19 (4.8-10.8) K/uL Hgb 9.2 L (14.0-18.0) g/dL Hct 28.3 L (42-52) % Plt Count 256 (130-400) K/uL BMP 12/08/21 07:09 Sodium 140 Potassium 3.3 L Chloride 110 H Carbon Dioxide 25 BUN 14 Creatinine 0.66 Glucose 85 Calcium 7.9 L Medications Administered Current Inpatient Medications Acetaminophen (Acetaminophen 325 Mg Tab) 650 mg PO Q4H PRN PRN Reason: Pain or Fever Stop: 01/04/22 21:48 Cyanocobalamin (Cyanocobalamin (B-12) 100 Mcg Tablet) 100 mcg PO DAILY [facility] Stop: 01/05/22 08:59 Last Admin: 12/08/21 09:44 Dose: 100 mcg Documented by: Famotidine (Famotidine 10 Mg Tablet) 10 mg PO BID [facility] Stop: 01/04/22 21:48 Last Admin: 12/08/21 09:44 Dose: 10 mg Documented by: Fidaxomicin (Fidaxomicin 200 Mg Tab) 200 mg PO BID [facility] Stop: 12/16/21 04:39 Last Admin: 12/08/21 09:44 Dose: 200 mg Documented by: Fluticasone/Vilanterol (Fluticasone/Vilanterol 100/25mcg 14 Puffs/Inhaler) 1 puffs INH HS [facility] Stop: 01/04/22 21:59 Last Admin: 12/07/21 20:46 Dose: 1 puffs Documented by: Folic Acid (Folic Acid 1 Mg Tab) 1 mg PO QAM [facility] Stop: 01/05/22 08:59 Last Admin: 12/08/21 09:44 Dose: 1 mg Documented by: Heparin Sodium (Porcine) (Heparin Sod 5,000 Unit/0.5 Ml Vial) 5,000 units SQ Q8 [facility] Stop: 01/04/22 21:59 Last Admin: 12/08/21 05:23 Dose: 5,000 units Documented by: Promethazine HCl 6.25 mg/ (Sodium Chloride) 50.25 mls @ 201 mls/hr IV Q6H PRN PRN Reason: Nausea And Vomiting Stop: 01/04/22 21:48 Lactated Ringer's (Lr) 1,000 mls @ 80 mls/hr IV .[id number] [facility] Stop: 12/09/21 07:40 Last Admin: 12/08/21 01:13 Dose: 80 mls/hr Documented by: Levalbuterol HCl (Levalbuterol Hcl 1.25 Mg/3 Ml Neb) 1.25 mg INH TIDR PRN; Protocol PRN Reason: SOB/wheezing Stop: 01/05/22 06:59 Multivitamins/Minerals (Cerovite Adv Formula Tab) 1 tab PO DAILY [facility] Stop: 01/05/22 08:59 Last Admin: 12/08/21 09:44 Dose: 1 tab Documented by: Oxycodone HCl (Oxycodone Hcl Ir 5 Mg Tab (Immediate Release)) 5 mg PO Q4H PRN PRN Reason: Pain Stop: 12/19/21 21:48 Last Admin: 12/06/21 08:42 Dose: 5 mg Documented by: Pantoprazole Sodium (Pantoprazole 40 Mg Tab) 40 mg PO DAILYBB [facility] Stop: 01/05/22 06:29 Last Admin: 12/08/21 05:24 Dose: 40 mg Documented by: Roflumilast (Roflumilast 500 Mcg Tab) [facility] Stop: 01/05/22 08:59 Last Admin: 12/08/21 09:44 Dose: 500 mcg Documented by: Simethicone (Simethicone 80 Mg Chew) 80 mg PO Q6H PRN PRN Reason: Dyspepsia Stop: 01/07/22 10:02 Last Admin: 12/08/21 10:34 Dose: 80 mg Documented by: Thiamine HCl (Thiamine Hcl 100 Mg Tab) 100 mg PO [facility] Stop: 01/05/22 08:59 Last Admin: 12/08/21 09:44 Dose: 100 mg Documented by: (1) Sepsis Sepsis acute organ dysfunction status: unspecified Sepsis type: sepsis due to unspecified organism Qualified Code(s): A41.9 - Sepsis, unspecified organism
[2021-12-08] MEDS ORDERED: POTASSIUM PHOSPHATE 24 MMOL in SODIUM CHLORIDE 0.9% 500 ML IV ONE (14:00)
[2021-12-08] MEDS: FLUTICASONE/VILANTEROL 100/25MCG 14 PUFFS/INHALER INH SCH (20:41)
[2021-12-09] MEDS: HEPARIN SOD 5,000 UNIT/0.5 ML VIAL SQ SCH ×3 (05:39→21:37)
[2021-12-09] MEDS: PANTOprazole 40 MG TAB PO SCH (05:39)
[2021-12-09 07:23] LABS: BUN Creatinine Ratio 18.2 (10-20); Calcium 7.8 mg/dl (8.5-10.1); Creatinine Clr Calc Pharmacy 61.2 ml/min; Est GFR (African American) 106.6 ml/min; Magnesium 1.4 mg/dl (1.7-2.4); Phosphorus 2.9 mg/dl (2.5-4.9); Potassium 3.1 mmol/L (3.5-5.1)
[2021-12-09] MEDS: SIMETHICONE 80 MG CHEW PO PRN (07:34)
[2021-12-09] MEDS: FIDAXOMICIN 200 MG TAB PO SCH ×2 (07:35→20:46)
[2021-12-09] MEDS: CEROVITE ADV FORMULA TAB PO SCH (07:35)
[2021-12-09] MEDS: FAMOTIDINE 10 MG TABLET PO SCH ×2 (07:35→20:45)
[2021-12-09] MEDS: CYANOCOBALAMIN (B-12) 100 MCG TABLET PO SCH (07:35)
[2021-12-09] MEDS: FOLIC ACID 1 MG TAB PO SCH (07:35)
[2021-12-09] MEDS: THIAMINE HCL 100 MG TAB PO SCH (07:36)
[2021-12-09] MEDS: ROFLUMILAST 500 MCG TAB PO SCH (07:36)
[2021-12-09] MEDS ORDERED: POTASSIUM CHLORIDE CRTAB 20 MEQ TABCR PO STA (07:53)
[2021-12-09] MEDS: MAGNESIUM SULFATE / D5W 1 GM/100 ML BAG IV SCH ×2 (08:48→12:24)
[2021-12-09] MEDS: POTASSIUM CHLORIDE / WTR 10 MEQ/100 ML PLCT IV SCH ×2 (08:49→10:04)
--- NOTE | 2021-12-09 16:30 | Hospitalist Progress Note ---
Date of Service December 09, 2021 Assessment & Plan (1) Sepsis: Plan: Sources C. 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 Dificid has been started with decreased leukocytosis and clinical improvement generally. Diarrhea is still present with some abdominal pain still present. Infectious disease consulted for definitive recommendations. Stick to diet low in dairy products or caffeine which may stimulate the bowels. Monitor electrolytes with ongoing diarrhea. Continue IV fluid replacement for now. Daily BMP. Condition has not improved and he still has abdominal pain and diarrhea Electrolytes remained remarkable for low potassium Will administer regular potassium meter BMP Appreciate ID input and recommendation: Dificid 200 mg twice daily until 12/16/2021, then Dificid 200 mg daily until 12/26/2021. If available Bezliotoxcumab infusion prior to the end of oral therapy or fecal microbial transplant after a 48-hour washout of the oral antibiotic, Not recommended to use cholestyramine, loperamide or Florastor in this case (3) Severe protein-calorie malnutrition: Plan: Nutrition has seen the patient and is supplementing with meals. Continue monitoring caloric intake. Currently patient has a good appetite. Diet advanced and has been tolerating diet (4) Chronic respiratory failure with hypoxia: Plan: Secondary to COPD, chronic, stable. Continue daily Roflumilast And Breo nightly. (5) COPD (chronic obstructive pulmonary disease): Plan: Chronic, stable, as above. No acute exacerbation (6) Hypomagnesemia: Plan: Secondary to diarrhea, replace today with 4 g of mag, repeat level in a.m. Electrolytes have been replaced (7) Hypokalemia: Plan: 2/2 ongoing diarrhea, Replace and repeat in am Has hypophosphatemia as well Will give intravenous potassium phosphate (8) ETOH abuse: Plan: History of alcohol abuse but with multiple hospital stays, alcohol intake has been minimal. No signs or symptoms of withdrawal at this time. Continue CIWA assessment regularly. (9) DVT prophylaxis: Plan: Heparin Full code Disposition-pending clinical improvement and infectious disease results. Also pending PT/OT evaluations. Admission and Anticipated Discharge Date Admission Date: December 05, 2021 Subjective 12/08/2021 The patient was seen and examined in medical telemetry unit He complains to have some abdominal pain without nausea and or vomiting He has persistent diarrhea and had been to toilet 3 or 4 times since this morning No fever and no chills 12/09/2021 The patient was seen and examined in medical telemetry unit He has been feeling little better today and the diarrhea seems to be controlling Minimal abdominal pain and diet has been advanced No nausea and vomiting Review of Systems Review of Systems: All systems reviewed and are unremarkable except as noted below Gastrointestinal: Abdominal pain without nausea and or vomiting Physical Exam Physical Exam: Lying in bed at with some discomfort due to abdominal discomfort and pain Constitutional: + ill appearing and + thin Eyes: PERRL, conjunctivae normal, anicteric sclerae ENMT: external ear and nose normal, oropharynx normal Neck: trachea midline, no thyromegaly Respiratory: no respiratory distress Auscultation: lungs clear to auscultation bilaterally Cardiovascular: Rate/Rhythm: regular rate and regular rhythm; not tachycardic Heart Sounds: normal S1 and normal S2; no murmur Extremities: no edema Gastrointestinal (Abdomen): Inspection/Auscultation: + abdomen distended (Minimally distended) and normal bowel sounds Percussion/Palpation: + abdomen tender (Tender mostly lower quadrants without guarding and no rigidity) and abdomen soft Musculoskeletal: No acute arthritis involving any joint Neurologic: normal touch/pain/proprioception and moves all extremities Lymphatic: no cervical or axillary lymphadenopathy Results & Data Results & Data ([facility]) Vital Signs (Past 12 Hours) Vital Signs Temp Pulse Pulse Resp BP Pulse Ox 12/09/21 15:56 36.4 C L 62 18 105/63 100 12/09/21 15:10 80 12/09/21 11:59 36.5 C 62 18 102/61 99 12/09/21 08:00 54 L 12/09/21 06:30 36.5 C 57 L 18 140/72 99 Laboratory Results BMP 12/09/21 06:38 Sodium 141 Potassium 3.1 L Chloride 111 H Carbon Dioxide 26 BUN 12 Creatinine 0.66 Glucose 87 Calcium 7.8 L Medications Administered Current Inpatient Medications Acetaminophen (Acetaminophen 325 Mg Tab) 650 mg PO Q4H PRN PRN Reason: Pain or Fever Stop: 01/04/22 21:48 Cyanocobalamin (Cyanocobalamin (B-12) 100 Mcg Tablet) 100 mcg PO DAILY [facility] Stop: 01/05/22 08:59 Last Admin: 12/09/21 07:35 Dose: 100 mcg Documented by: Famotidine (Famotidine 10 Mg Tablet) 10 mg PO BID [facility] Stop: 01/04/22 21:48 Last Admin: 12/09/21 07:35 Dose: 10 mg Documented by: Fidaxomicin (Fidaxomicin 200 Mg Tab) 200 mg PO BID [facility] Stop: 12/16/21 04:39 Last Admin: 12/09/21 07:35 Dose: 200 mg Documented by: Fluticasone/Vilanterol (Fluticasone/Vilanterol 100/25mcg 14 Puffs/Inhaler) 1 puffs INH HS [facility] Stop: 01/04/22 21:59 Last Admin: 12/08/21 20:41 Dose: 1 puffs Documented by: Folic Acid (Folic Acid 1 Mg Tab) 1 mg PO QAM [facility] Stop: 01/05/22 08:59 Last Admin: 12/09/21 07:35 Dose: 1 mg Documented by: Heparin Sodium (Porcine) (Heparin Sod 5,000 Unit/0.5 Ml Vial) 5,000 units SQ Q8 [facility] Stop: 01/04/22 21:59 Last Admin: 12/09/21 14:06 Dose: 5,000 units Documented by: Promethazine HCl 6.25 mg/ (Sodium Chloride) 50.25 mls @ 201 mls/hr IV Q6H PRN PRN Reason: Nausea And Vomiting Stop: 01/04/22 21:48 Levalbuterol HCl (Levalbuterol Hcl 1.25 Mg/3 Ml Neb) 1.25 mg INH TIDR PRN; Protocol PRN Reason: SOB/wheezing Stop: 01/05/22 06:59 Multivitamins/Minerals (Cerovite Adv Formula Tab) 1 tab PO DAILY [facility] Stop: 01/05/22 08:59 Last Admin: 12/09/21 07:35 Dose: 1 tab Documented by: Oxycodone HCl (Oxycodone Hcl Ir 5 Mg Tab (Immediate Release)) 5 mg PO Q4H PRN PRN Reason: Pain Stop: 12/19/21 21:48 Last Admin: 12/06/21 08:42 Dose: 5 mg Documented by: Pantoprazole Sodium (Pantoprazole 40 Mg Tab) [facility] Stop: 01/05/22 06:29 Last Admin: 12/09/21 05:39 Dose: 40 mg Documented by: Roflumilast (Roflumilast 500 Mcg Tab) [facility] Stop: 01/05/22 08:59 Last Admin: 12/09/21 07:36 Dose: 500 mcg Documented by: Simethicone (Simethicone 80 Mg Chew) 80 mg PO Q6H PRN PRN Reason: Dyspepsia Stop: 01/07/22 10:02 Last Admin: 12/09/21 07:34 Dose: 80 mg Documented by: Thiamine HCl (Thiamine Hcl 100 Mg Tab) 100 mg PO [facility] Stop: 01/05/22 08:59 Last Admin: 12/09/21 07:36 Dose: 100 mg Documented by: (1) Sepsis Sepsis acute organ dysfunction status: unspecified Sepsis type: sepsis due to unspecified organism Qualified Code(s): A41.9 - Sepsis, unspecified organism
[2021-12-09] MEDS: FLUTICASONE/VILANTEROL 100/25MCG 14 PUFFS/INHALER INH SCH (20:45)
[2021-12-10 06:18] LABS: Basophils # (auto) 0.01 K/uL (0-0.2); Basophils % (auto) 0.2 %; Eosinophils # (auto) 0.48 K/uL (0-0.5); Eosinophils % (auto) 8.3 %; Hemoglobin 9.7 g/dL (14.0-18.0); Immature Granulocytes # (auto) 0.03 K/uL (0.00-0.02); Immature Granulocytes % (auto) 0.5 %; Lymphocytes % (auto) 31.1 %; Mean Corpuscular Hemoglobin 29.4 pg (25-34); Mean Corpuscular Hgb Conc 32.3 g/dL (32-36); Mean Corpuscular Volume 90.9 fL (80-100); Mean Platelet Volume 8.9 fL (7.4-10.4); Monocytes % (auto) 13.8 %; Neutrophils # (auto) 2.67 K/uL (1.4-6.5); Neutrophils % (auto) 46.1 %; Platelet Count 296 K/uL (130-400); RDW Coefficient of Variation 15.2 % (11.5-14.5); RDW Standard Deviation 50.5 fL (36.4-46.3); White Blood Count 5.79 K/uL (4.8-10.8)
[2021-12-10] MEDS: HEPARIN SOD 5,000 UNIT/0.5 ML VIAL SQ SCH ×3 (06:31→21:19)
[2021-12-10] MEDS: PANTOprazole 40 MG TAB PO SCH (06:36)
[2021-12-10 06:39] LABS: BUN Creatinine Ratio 15.2 (10-20); Calcium 7.9 mg/dl (8.5-10.1); Creatinine Clr Calc Pharmacy 61.2 ml/min; Est GFR (African American) 106.6 ml/min; Magnesium 1.6 mg/dl (1.7-2.4); Phosphorus 2.5 mg/dl (2.5-4.9); Potassium 3.3 mmol/L (3.5-5.1)
[2021-12-10] MEDS ORDERED: POTASSIUM CHLORIDE CRTAB 20 MEQ TABCR PO STA (08:06)
[2021-12-10] MEDS: FIDAXOMICIN 200 MG TAB PO SCH ×2 (10:13→21:18)
[2021-12-10] MEDS: THIAMINE HCL 100 MG TAB PO SCH (10:13)
[2021-12-10] MEDS: CEROVITE ADV FORMULA TAB PO SCH (10:14)
[2021-12-10] MEDS: CYANOCOBALAMIN (B-12) 100 MCG TABLET PO SCH (10:14)
[2021-12-10] MEDS: FOLIC ACID 1 MG TAB PO SCH (10:14)
[2021-12-10] MEDS: ROFLUMILAST 500 MCG TAB PO SCH (10:14)
[2021-12-10] MEDS: SIMETHICONE 80 MG CHEW PO PRN (10:14)
[2021-12-10] MEDS: FAMOTIDINE 10 MG TABLET PO SCH ×2 (10:15→21:18)
[2021-12-10] MEDS: POTASSIUM CHLORIDE / WTR 10 MEQ/100 ML PLCT IV SCH ×2 (10:18→12:08)
--- NOTE | 2021-12-10 15:40 | Hospitalist Progress Note ---
Date of Service December 10, 2021 Assessment & Plan (1) Sepsis: Plan: Sources C. 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 Dificid has been started with decreased leukocytosis and clinical improvement generally. Diarrhea is still present with some abdominal pain still present. Infectious disease consulted for definitive recommendations. Stick to diet low in dairy products or caffeine which may stimulate the bowels. Monitor electrolytes with ongoing diarrhea. Continue IV fluid replacement for now. Daily BMP. Condition has not improved and he still has abdominal pain and diarrhea Electrolytes remained remarkable for low potassium Will administer regular potassium meter BMP Appreciate ID input and recommendation: Dificid 200 mg twice daily until 12/16/2021, then Dificid 200 mg daily until 12/26/2021. If available Bezliotoxcumab infusion prior to the end of oral therapy or fecal microbial transplant after a 48-hour washout of the oral antibiotic, Not recommended to use cholestyramine, loperamide or Florastor in this case Remains stable without any further improvement Will start PT and OT evaluation A. fib feels much better we will plan to discharge tomorrow Electrolytes have been replaced (3) Severe protein-calorie malnutrition: Plan: Nutrition has seen the patient and is supplementing with meals. Continue monitoring caloric intake. Currently patient has a good appetite. Diet advanced and has been tolerating diet (4) Chronic respiratory failure with hypoxia: Plan: Secondary to COPD, chronic, stable. Continue daily Roflumilast And Breo nightly. (5) COPD (chronic obstructive pulmonary disease): Plan: Chronic, stable, as above. No acute exacerbation (6) Hypomagnesemia: Plan: Secondary to diarrhea, replace today with 4 g of mag, repeat level in a.m. Electrolytes have been replaced (7) Hypokalemia: Plan: 2/2 ongoing diarrhea, Replace and repeat in am Has hypophosphatemia as well Will give intravenous potassium phosphate (8) ETOH abuse: Plan: History of alcohol abuse but with multiple hospital stays, alcohol intake has been minimal. No signs or symptoms of withdrawal at this time. Continue CIWA assessment regularly. (9) DVT prophylaxis: Plan: Heparin Full code Disposition-pending clinical improvement and infectious disease results. Also pending PT/OT evaluations. Admission and Anticipated Discharge Date Admission Date: December 05, 2021 Subjective 12/08/2021 The patient was seen and examined in medical telemetry unit He complains to have some abdominal pain without nausea and or vomiting He has persistent diarrhea and had been to toilet 3 or 4 times since this morning No fever and no chills 12/09/2021 The patient was seen and examined in medical telemetry unit He has been feeling little better today and the diarrhea seems to be controlling Minimal abdominal pain and diet has been advanced No nausea and vomiting 12/10/2021 The patient was seen and examined in medical telemetry unit He continues to have loose stool with mild to moderate abdominal pain without any nausea and or vomiting Denies any fever and or chills Physically a little better today Review of Systems Review of Systems: All systems reviewed and are unremarkable except as noted below Gastrointestinal: Abdominal pain without nausea and or vomiting Physical Exam Physical Exam: Lying in bed at with some discomfort due to abdominal discomfort and pain Constitutional: + ill appearing and + thin Eyes: PERRL, conjunctivae normal, anicteric sclerae ENMT: external ear and nose normal, oropharynx normal Neck: trachea midline, no thyromegaly Respiratory: no respiratory distress Auscultation: lungs clear to auscultation bilaterally Cardiovascular: Rate/Rhythm: regular rate and regular rhythm; not tachycardic Heart Sounds: normal S1 and normal S2; no murmur Extremities: no edema Gastrointestinal (Abdomen): Inspection/Auscultation: normal bowel sounds; abdomen not distended (Minimally distended) Percussion/Palpation: + abdomen tender (Tender mostly lower quadrants without guarding and no rigidity) and abdomen soft Musculoskeletal: No acute arthritis involving any joint Neurologic: normal touch/pain/proprioception and moves all extremities Lymphatic: no cervical or axillary lymphadenopathy Results & Data Results & Data ([facility]) Vital Signs (Past 12 Hours) Vital Signs Temp Pulse Pulse Pulse Resp BP Pulse Ox 12/10/21 14:30 69 12/10/21 11:25 36.4 C L 74 19 115/69 98 12/10/21 08:06 36.4 C L 73 19 138/73 99 12/10/21 04:00 36.5 C 73 18 126/71 98 Laboratory Results Short CBC 12/10/21 Range/Units 05:53 WBC 5.79 (4.8-10.8) K/uL Hgb 9.7 L (14.0-18.0) g/dL Hct 30.0 L (42-52) % Plt Count 296 (130-400) K/uL [facility] 12/10/21 05:53 Sodium 141 Potassium 3.3 L Chloride 111 H Carbon Dioxide 27 BUN 10 Creatinine 0.66 Glucose 93 Calcium 7.9 L Medications Administered Current Inpatient Medications Acetaminophen (Acetaminophen 325 Mg Tab) 650 mg PO Q4H PRN PRN Reason: Pain or Fever Stop: 01/04/22 21:48 Cyanocobalamin (Cyanocobalamin (B-12) 100 Mcg Tablet) 100 mcg PO DAILY [facility] Stop: 01/05/22 08:59 Last Admin: 12/10/21 10:14 Dose: 100 mcg Documented by: Famotidine (Famotidine 10 Mg Tablet) 10 mg PO BID [facility] Stop: 01/04/22 21:48 Last Admin: 12/10/21 10:15 Dose: 10 mg Documented by: Fidaxomicin (Fidaxomicin 200 Mg Tab) 200 mg PO BID [facility] Stop: 12/16/21 04:39 Last Admin: 12/10/21 10:13 Dose: 200 mg Documented by: Fluticasone/Vilanterol (Fluticasone/Vilanterol 100/25mcg 14 Puffs/Inhaler) 1 puffs INH HS [facility] Stop: 01/04/22 21:59 Last Admin: 12/09/21 20:45 Dose: 1 puffs Documented by: Folic Acid (Folic Acid 1 Mg Tab) 1 mg PO QAM [facility] Stop: 01/05/22 08:59 Last Admin: 12/10/21 10:14 Dose: 1 mg Documented by: Heparin Sodium (Porcine) (Heparin Sod 5,000 Unit/0.5 Ml Vial) 5,000 units SQ Q8 [facility] Stop: 01/04/22 21:59 Last Admin: 12/10/21 14:15 Dose: 5,000 units Documented by: Promethazine HCl 6.25 mg/ (Sodium Chloride) 50.25 mls @ 201 mls/hr IV Q6H PRN PRN Reason: Nausea And Vomiting Stop: 01/04/22 21:48 Levalbuterol HCl (Levalbuterol Hcl 1.25 Mg/3 Ml Neb) 1.25 mg INH TIDR PRN; Protocol PRN Reason: SOB/wheezing Stop: 01/05/22 06:59 Multivitamins/Minerals (Cerovite Adv Formula Tab) 1 tab PO DAILY [facility] Stop: 01/05/22 08:59 Last Admin: 12/10/21 10:14 Dose: 1 tab Documented by: Oxycodone HCl (Oxycodone Hcl Ir 5 Mg Tab (Immediate Release)) 5 mg PO Q4H PRN PRN Reason: Pain Stop: 12/19/21 21:48 Last Admin: 12/06/21 08:42 Dose: 5 mg Documented by: Pantoprazole Sodium (Pantoprazole 40 Mg Tab) 40 mg PO DAILYBB [facility] Stop: 01/05/22 06:29 Last Admin: 12/10/21 06:36 Dose: 40 mg Documented by: Roflumilast (Roflumilast 500 Mcg Tab) 500 mcg PO QAM [facility] Stop: 01/05/22 08:59 Last Admin: 12/10/21 10:14 Dose: 500 mcg Documented by: Simethicone (Simethicone 80 Mg Chew) 80 mg PO Q6H PRN PRN Reason: Dyspepsia Stop: 01/07/22 10:02 Last Admin: 12/10/21 10:14 Dose: 80 mg Documented by: Thiamine HCl (Thiamine Hcl 100 Mg Tab) 100 mg PO QAM [facility] Stop: 01/05/22 08:59 Last Admin: 12/10/21 10:13 Dose: 100 mg Documented by: (1) Sepsis Sepsis acute organ dysfunction status: unspecified Sepsis type: sepsis due to unspecified organism Qualified Code(s): A41.9 - Sepsis, unspecified organism
[2021-12-10] MEDS: FLUTICASONE/VILANTEROL 100/25MCG 14 PUFFS/INHALER INH SCH (21:19)
[2021-12-11 06:13] LABS: BUN Creatinine Ratio 17.2 (10-20); Calcium 8.1 mg/dl (8.5-10.1); Creatinine Clr Calc Pharmacy 68.9 ml/min; Est GFR (African American) 112.4 ml/min; Magnesium 1.4 mg/dl (1.7-2.4); Phosphorus 2.8 mg/dl (2.5-4.9); Potassium 3.3 mmol/L (3.5-5.1)
[2021-12-11] MEDS: PANTOprazole 40 MG TAB PO SCH (06:39)
[2021-12-11] MEDS: HEPARIN SOD 5,000 UNIT/0.5 ML VIAL SQ SCH ×3 (06:39→21:34)
[2021-12-11] MEDS ORDERED: POTASSIUM CHLORIDE CRTAB 20 MEQ TABCR PO STA (08:55)
[2021-12-11] MEDS: SIMETHICONE 80 MG CHEW PO PRN (10:20)
[2021-12-11] MEDS: ROFLUMILAST 500 MCG TAB PO SCH (10:20)
[2021-12-11] MEDS: CYANOCOBALAMIN (B-12) 100 MCG TABLET PO SCH (10:20)
[2021-12-11] MEDS: FOLIC ACID 1 MG TAB PO SCH (10:20)
[2021-12-11] MEDS: CEROVITE ADV FORMULA TAB PO SCH (10:20)
[2021-12-11] MEDS: THIAMINE HCL 100 MG TAB PO SCH (10:20)
[2021-12-11] MEDS: FIDAXOMICIN 200 MG TAB PO SCH ×2 (10:22→21:32)
[2021-12-11] MEDS: FAMOTIDINE 10 MG TABLET PO SCH ×2 (10:22→21:32)
[2021-12-11] MEDS: POTASSIUM CHLORIDE / WTR 10 MEQ/100 ML PLCT IV SCH ×2 (10:22→12:31)
[2021-12-11] MEDS: MAGNESIUM SULFATE / D5W 1 GM/100 ML BAG IV SCH ×2 (12:32→14:13)
--- NOTE | 2021-12-11 16:29 | Hospitalist Progress Note ---
Date of Service December 11, 2021 Assessment & Plan (1) Sepsis: Plan: Sources C. 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 Dificid has been started with decreased leukocytosis and clinical improvement generally. Diarrhea is still present with some abdominal pain still present. Infectious disease consulted for definitive recommendations. Stick to diet low in dairy products or caffeine which may stimulate the bowels. Monitor electrolytes with ongoing diarrhea. Continue IV fluid replacement for now. Daily BMP. Condition has not improved and he still has abdominal pain and diarrhea Electrolytes remained remarkable for low potassium Will administer regular potassium meter BMP Appreciate ID input and recommendation: Dificid 200 mg twice daily until 12/16/2021, then Dificid 200 mg daily until 12/26/2021. If available Bezliotoxcumab infusion prior to the end of oral therapy or fecal microbial transplant after a 48-hour washout of the oral antibiotic, Not recommended to use cholestyramine, loperamide or Florastor in this case Remains stable without any further improvement Will start PT and OT evaluation A. fib feels much better we will plan to discharge tomorrow Electrolytes have been replaced Diarrhea seems to be controlled-we will get PT and OT evaluation prior to discharge tomorrow (3) Severe protein-calorie malnutrition: Plan: Nutrition has seen the patient and is supplementing with meals. Continue monitoring caloric intake. Currently patient has a good appetite. Diet advanced and has been tolerating diet (4) Chronic respiratory failure with hypoxia: Plan: Secondary to COPD, chronic, stable. Continue daily Roflumilast And Breo nightly. (5) COPD (chronic obstructive pulmonary disease): Plan: Chronic, stable, as above. No acute exacerbation (6) Hypomagnesemia: Plan: Secondary to diarrhea, replace today with 4 g of mag, repeat level in a.m. Electrolytes have been replaced (7) Hypokalemia: Plan: 2/2 ongoing diarrhea, Replace and repeat in am Has hypophosphatemia as well Will give intravenous potassium phosphate (8) ETOH abuse: Plan: History of alcohol abuse but with multiple hospital stays, alcohol intake has been minimal. No signs or symptoms of withdrawal at this time. Continue CIWA assessment regularly. (9) DVT prophylaxis: Plan: Heparin Full code Disposition-pending clinical improvement and infectious disease results. Also pending PT/OT evaluations. Admission and Anticipated Discharge Date Admission Date: December 05, 2021 Subjective 12/08/2021 The patient was seen and examined in medical telemetry unit He complains to have some abdominal pain without nausea and or vomiting He has persistent diarrhea and had been to toilet 3 or 4 times since this morning No fever and no chills 12/09/2021 The patient was seen and examined in medical telemetry unit He has been feeling little better today and the diarrhea seems to be controlling Minimal abdominal pain and diet has been advanced No nausea and vomiting 12/10/2021 The patient was seen and examined in medical telemetry unit He continues to have loose stool with mild to moderate abdominal pain without any nausea and or vomiting Denies any fever and or chills Physically a little better today 12/11/2021 The patient was seen and examined in medical telemetry unit He has been feeling much better and the diarrhea seems to be controlled He has been tolerating regular diet Likely home tomorrow following PT evaluation Review of Systems Review of Systems: All systems reviewed and are unremarkable except as noted below Gastrointestinal: Abdominal pain without nausea and or vomiting Physical Exam Physical Exam: Lying in bed at with some discomfort due to abdominal discomfort and pain Constitutional: + ill appearing and + thin Eyes: PERRL, conjunctivae normal, anicteric sclerae ENMT: external ear and nose normal, oropharynx normal Neck: trachea midline, no thyromegaly Respiratory: no respiratory distress Auscultation: lungs clear to auscultation bilaterally Cardiovascular: Rate/Rhythm: regular rate and regular rhythm; not tachycardic Heart Sounds: normal S1 and normal S2; no murmur Extremities: no edema Gastrointestinal (Abdomen): Inspection/Auscultation: normal bowel sounds; abdomen not distended (Minimally distended) Percussion/Palpation: + abdomen tender (Tender mostly lower quadrants without guarding and no rigidity) and abdomen soft Musculoskeletal: No acute arthritis in any joint Neurologic: normal touch/pain/proprioception and moves all extremities Lymphatic: no cervical or axillary lymphadenopathy Results & Data Results & Data ([facility]) Vital Signs (Past 12 Hours) Vital Signs Temp Pulse Pulse Resp BP Pulse Ox 12/11/21 15:43 36.6 C 72 20 115/72 99 12/11/21 14:30 78 12/11/21 11:45 36.4 C L 71 20 111/64 100 12/11/21 07:25 36.5 C 62 18 136/70 96 12/11/21 07:00 72 Laboratory Results [facility] 12/11/21 05:34 Sodium 143 Potassium 3.3 L Chloride 112 H Carbon Dioxide 28 BUN 10 Creatinine 0.58 L Glucose 93 Calcium 8.1 L Medications Administered Current Inpatient Medications Acetaminophen (Acetaminophen 325 Mg Tab) 650 mg PO Q4H PRN PRN Reason: Pain or Fever Stop: 01/04/22 21:48 Cyanocobalamin (Cyanocobalamin (B-12) 100 Mcg Tablet) 100 mcg PO DAILY [facility] Stop: 01/05/22 08:59 Last Admin: 12/11/21 10:20 Dose: 100 mcg Documented by: Famotidine (Famotidine 10 Mg Tablet) 10 mg PO BID [facility] Stop: 01/04/22 21:48 Last Admin: 12/11/21 10:22 Dose: 10 mg Documented by: Fidaxomicin (Fidaxomicin 200 Mg Tab) 200 mg PO BID [facility] Stop: 12/16/21 04:39 Last Admin: 12/11/21 10:22 Dose: 200 mg Documented by: Fluticasone/Vilanterol (Fluticasone/Vilanterol 100/25mcg 14 Puffs/Inhaler) 1 puffs INH HS [facility] Stop: 01/04/22 21:59 Last Admin: 12/10/21 21:19 Dose: 1 puffs Documented by: Folic Acid (Folic Acid 1 Mg Tab) 1 mg PO QAM [facility] Stop: 01/05/22 08:59 Last Admin: 12/11/21 10:20 Dose: 1 mg Documented by: Heparin Sodium (Porcine) (Heparin Sod 5,000 Unit/0.5 Ml Vial) 5,000 units SQ Q8 [facility] Stop: 01/04/22 21:59 Last Admin: 12/11/21 14:13 Dose: Not Given Documented by: Promethazine HCl 6.25 mg/ (Sodium Chloride) 50.25 mls @ 201 mls/hr IV Q6H PRN PRN Reason: Nausea And Vomiting Stop: 01/04/22 21:48 Levalbuterol HCl (Levalbuterol Hcl 1.25 Mg/3 Ml Neb) 1.25 mg INH TIDR PRN; Protocol PRN Reason: SOB/wheezing Stop: 01/05/22 06:59 Multivitamins/Minerals (Cerovite Adv Formula Tab) 1 tab PO DAILY [facility] Stop: 01/05/22 08:59 Last Admin: 12/11/21 10:20 Dose: 1 tab Documented by: Oxycodone HCl (Oxycodone Hcl Ir 5 Mg Tab (Immediate Release)) 5 mg PO Q4H PRN PRN Reason: Pain Stop: 12/19/21 21:48 Last Admin: 12/06/21 08:42 Dose: 5 mg Documented by: Pantoprazole Sodium (Pantoprazole 40 Mg Tab) 40 mg PO DAILYBB [facility] Stop: 01/05/22 06:29 Last Admin: 12/11/21 06:39 Dose: 40 mg Documented by: Roflumilast (Roflumilast 500 Mcg Tab) 500 mcg PO QAM [facility] Stop: 01/05/22 08:59 Last Admin: 12/11/21 10:20 Dose: 500 mcg Documented by: Simethicone (Simethicone 80 Mg Chew) 80 mg PO Q6H PRN PRN Reason: Dyspepsia Stop: 01/07/22 10:02 Last Admin: 12/11/21 10:20 Dose: 80 mg Documented by: Thiamine HCl (Thiamine Hcl 100 Mg Tab) 100 mg PO QAM [facility] Stop: 01/05/22 08:59 Last Admin: 12/11/21 10:20 Dose: 100 mg Documented by: (1) Sepsis Sepsis acute organ dysfunction status: unspecified Sepsis type: sepsis due to unspecified organism Qualified Code(s): A41.9 - Sepsis, unspecified organism
[2021-12-11] MEDS: FLUTICASONE/VILANTEROL 100/25MCG 14 PUFFS/INHALER INH SCH (21:27)
[2021-12-12] MEDS: PANTOprazole 40 MG TAB PO SCH (06:29)
[2021-12-12] MEDS: HEPARIN SOD 5,000 UNIT/0.5 ML VIAL SQ SCH ×2 (06:29→15:17)
[2021-12-12 08:03] LABS: Basophils # (auto) 0.03 K/uL (0-0.2); Basophils % (auto) 0.5 %; Eosinophils # (auto) 0.57 K/uL (0-0.50); Eosinophils % (auto) 9.3 %; Hematocrit (blood only) 29.6 % (40.1-51.0); Hemoglobin 9.4 g/dl (14.0-18.0); Immature Granulocytes # (auto) 0.04 K/uL (0.00-0.02); Immature Granulocytes % (auto) 0.7 %; Lymphocytes # (auto) 1.88 K/uL (1.2-3.4); Lymphocytes % (auto) 30.7 %; Mean Corpuscular Hemoglobin 29.7 pg (25.0-34.0); Mean Corpuscular Hgb Conc 31.8 g/dL (32.0-36.0); Mean Corpuscular Volume 93.4 fL (80.0-100.0); Mean Platelet Volume 9.1 fL (9.4-12.4); Monocytes # (auto) 0.55 K/uL (0.24-0.82); Neutrophils # (auto) 3.05 K/uL (1.4-6.5); Neutrophils % (auto) 49.8 %; Platelet Count 281 K/uL (130-400); RDW Coefficient of Variation 14.9 % (11.5-14.5); Red Blood Count 3.17 M/uL (4.63-6.08); White Blood Count 6.12 K/ul (4.8-10.8)
[2021-12-12 08:35] LABS: BUN Creatinine Ratio 13.8 (10-20); Calcium 8.4 mg/dl (8.5-10.1); Creatinine Clr Calc Pharmacy 61.3 ml/min; Est GFR (African American) 107.2 ml/min; Est GFR (Non-African American) 92.5 ml/min; Potassium 3.5 mmol/L (3.5-5.1)
[2021-12-12] MEDS: FAMOTIDINE 10 MG TABLET PO SCH (10:25)
[2021-12-12] MEDS: SIMETHICONE 80 MG CHEW PO PRN (10:25)
[2021-12-12] MEDS: FIDAXOMICIN 200 MG TAB PO SCH (10:25)
[2021-12-12] MEDS: FOLIC ACID 1 MG TAB PO SCH (10:25)
[2021-12-12] MEDS: ROFLUMILAST 500 MCG TAB PO SCH (10:25)
[2021-12-12] MEDS: CEROVITE ADV FORMULA TAB PO SCH (10:26)
[2021-12-12] MEDS: CYANOCOBALAMIN (B-12) 100 MCG TABLET PO SCH (10:26)
[2021-12-12] MEDS: THIAMINE HCL 100 MG TAB PO SCH (10:26)
--- NOTE | 2021-12-12 13:35 | Hospitalist Progress Note ---
Date of Service December 12, 2021 Assessment & Plan (1) Sepsis: Plan: Sources C. 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 Dificid has been started with decreased leukocytosis and clinical improvement generally. Diarrhea is still present with some abdominal pain still present. Infectious disease consulted for definitive recommendations. Stick to diet low in dairy products or caffeine which may stimulate the bowels. Monitor electrolytes with ongoing diarrhea. Continue IV fluid replacement for now. Daily BMP. Condition has not improved and he still has abdominal pain and diarrhea Electrolytes remained remarkable for low potassium Will administer regular potassium meter BMP Appreciate ID input and recommendation: Dificid 200 mg twice daily until 12/16/2021, then Dificid 200 mg daily until 12/26/2021. If available Bezliotoxcumab infusion prior to the end of oral therapy or fecal microbial transplant after a 48-hour washout of the oral antibiotic, Not recommended to use cholestyramine, loperamide or Florastor in this case Remains stable without any further improvement Will start PT and OT evaluation A. fib feels much better we will plan to discharge tomorrow Electrolytes have been replaced Diarrhea seems to be controlled-we will get PT and OT evaluation prior to discharge tomorrow His diarrhea is controlled and abdominal pain is gone He has had therapy evaluation and recommended home Will be discharged home this afternoon (3) Severe protein-calorie malnutrition: Plan: Nutrition has seen the patient and is supplementing with meals. Continue monitoring caloric intake. Currently patient has a good appetite. Diet advanced and has been tolerating diet (4) Chronic respiratory failure with hypoxia: Plan: Secondary to COPD, chronic, stable. Continue daily Roflumilast And Breo nightly. Continue oxygen as before (5) COPD (chronic obstructive pulmonary disease): Plan: Chronic, stable, as above. No acute exacerbation (6) Hypomagnesemia: Plan: Secondary to diarrhea, replace today with 4 g of mag, repeat level in a.m. Electrolytes have been replaced (7) Hypokalemia: Plan: 2/2 ongoing diarrhea, Replace and repeat in am Has hypophosphatemia as well Will give intravenous potassium phosphate Normalized (8) ETOH abuse: Plan: History of alcohol abuse but with multiple hospital stays, alcohol intake has been minimal. No signs or symptoms of withdrawal at this time. Continue CIWA assessment regularly. (9) DVT prophylaxis: Plan: Heparin Full code Disposition-pending clinical improvement and infectious disease results. Also pending PT/OT evaluations. Admission and Anticipated Discharge Date Admission Date: December 05, 2021 Subjective 12/08/2021 The patient was seen and examined in medical telemetry unit He complains to have some abdominal pain without nausea and or vomiting He has persistent diarrhea and had been to toilet 3 or 4 times since this morning No fever and no chills 12/09/2021 The patient was seen and examined in medical telemetry unit He has been feeling little better today and the diarrhea seems to be controlling Minimal abdominal pain and diet has been advanced No nausea and vomiting 12/10/2021 The patient was seen and examined in medical telemetry unit He continues to have loose stool with mild to moderate abdominal pain without any nausea and or vomiting Denies any fever and or chills Physically a little better today 12/11/2021 The patient was seen and examined in medical telemetry unit He has been feeling much better and the diarrhea seems to be controlled He has been tolerating regular diet Likely home tomorrow following PT evaluation 12/12/2021 The patient was seen and examined in medical telemetry unit His diarrhea is well controlled and abdominal pain is almost gone Bowel movement is formed Tolerating regular diet and has been ambulating without much difficulties Review of Systems Review of Systems: All systems reviewed and are unremarkable except as noted below Gastrointestinal: No abdominal pain and/or distention Physical Exam Physical Exam: Lying in bed at with some discomfort due to abdominal discomfort and pain Constitutional: + ill appearing and + thin Eyes: PERRL, conjunctivae normal, anicteric sclerae ENMT: external ear and nose normal, oropharynx normal Neck: trachea midline, no thyromegaly Respiratory: no respiratory distress Auscultation: lungs clear to auscultation bilaterally Cardiovascular: Rate/Rhythm: regular rate and regular rhythm; not tachycardic Heart Sounds: normal S1 and normal S2; no murmur Extremities: no edema Gastrointestinal (Abdomen): Inspection/Auscultation: normal bowel sounds; abdomen not distended Percussion/Palpation: abdomen soft; abdomen nontender (Tender mostly lower quadrants without guarding and no rigidity) Musculoskeletal: No acute arthritis in any joint Neurologic: normal touch/pain/proprioception and moves all extremities Psychiatric: A+Ox3, euthymic affect Lymphatic: no cervical or axillary lymphadenopathy Results & Data Results & Data ([facility]) Vital Signs (Past 12 Hours) Vital Signs Temp Pulse Pulse Resp BP Pulse Ox 12/12/21 11:10 36.4 C L 69 18 109/64 99 12/12/21 07:26 36.5 C 89 16 129/69 100 12/12/21 07:00 54 L 12/12/21 03:51 36.4 C L 70 20 123/69 100 Laboratory Results Short CBC 12/12/21 Range/Units 07:38 WBC 6.12 (4.8-10.8) K/ul Hgb 9.4 L (14.0-18.0) g/dl Hct 29.6 L (40.1-51.0) % Plt Count 281 (130-400) K/uL BMP 12/12/21 07:38 Sodium 142 Potassium 3.5 Chloride 109 H Carbon Dioxide 28 BUN 9 Creatinine 0.65 Glucose 89 Calcium 8.4 L Medications Administered Current Inpatient Medications Acetaminophen (Acetaminophen 325 Mg Tab) 650 mg PO Q4H PRN PRN Reason: Pain or Fever Stop: 01/04/22 21:48 Cyanocobalamin (Cyanocobalamin (B-12) 100 Mcg Tablet) 100 mcg PO DAILY [facility] Stop: 01/05/22 08:59 Last Admin: 12/12/21 10:26 Dose: 100 mcg Documented by: Famotidine (Famotidine 10 Mg Tablet) 10 mg PO BID [facility] Stop: 01/04/22 21:48 Last Admin: 12/12/21 10:25 Dose: 10 mg Documented by: Fidaxomicin (Fidaxomicin 200 Mg Tab) 200 mg PO BID [facility] Stop: 12/16/21 04:39 Last Admin: 12/12/21 10:25 Dose: 200 mg Documented by: Fluticasone/Vilanterol (Fluticasone/Vilanterol 100/25mcg 14 Puffs/Inhaler) 1 puffs INH HS [facility] Stop: 01/04/22 21:59 Last Admin: 12/11/21 21:27 Dose: 1 puffs Documented by: Folic Acid (Folic Acid 1 Mg Tab) 1 mg PO QAM [facility] Stop: 01/05/22 08:59 Last Admin: 12/12/21 10:25 Dose: 1 mg Documented by: Heparin Sodium (Porcine) (Heparin Sod 5,000 Unit/0.5 Ml Vial) 5,000 units SQ Q8 [facility] Stop: 01/04/22 21:59 Last Admin: 12/12/21 06:29 Dose: Not Given Documented by: Promethazine HCl 6.25 mg/ (Sodium Chloride) 50.25 mls @ 201 mls/hr IV Q6H PRN PRN Reason: Nausea And Vomiting Stop: 01/04/22 21:48 Levalbuterol HCl (Levalbuterol Hcl 1.25 Mg/3 Ml Neb) 1.25 mg INH TIDR PRN; Protocol PRN Reason: SOB/wheezing Stop: 01/05/22 06:59 Multivitamins/Minerals (Cerovite Adv Formula Tab) 1 tab PO DAILY [facility] Stop: 01/05/22 08:59 Last Admin: 12/12/21 10:26 Dose: 1 tab Documented by: Oxycodone HCl (Oxycodone Hcl Ir 5 Mg Tab (Immediate Release)) 5 mg PO Q4H PRN PRN Reason: Pain Stop: 12/19/21 21:48 Last Admin: 12/06/21 08:42 Dose: 5 mg Documented by: Pantoprazole Sodium (Pantoprazole 40 Mg Tab) 40 mg PO DAILYBB [facility] Stop: 01/05/22 06:29 Last Admin: 12/12/21 06:29 Dose: 40 mg Documented by: Roflumilast (Roflumilast 500 Mcg Tab) 500 mcg PO QAM [facility] Stop: 01/05/22 08:59 Last Admin: 12/12/21 10:25 Dose: 500 mcg Documented by: Simethicone (Simethicone 80 Mg Chew) 80 mg PO Q6H PRN PRN Reason: Dyspepsia Stop: 01/07/22 10:02 Last Admin: 12/12/21 10:25 Dose: 80 mg Documented by: Thiamine HCl (Thiamine Hcl 100 Mg Tab) 100 mg PO QAM [facility] Stop: 01/05/22 08:59 Last Admin: 12/12/21 10:26 Dose: 100 mg Documented by: (1) Sepsis Sepsis acute organ dysfunction status: unspecified Sepsis type: sepsis due to unspecified organism Qualified Code(s): A41.9 - Sepsis, unspecified organism
--- NOTE | 2021-12-13 08:07 | Discharge Summary ---
Date of Service December 12, 2021 Admission HPI Per Admitting Provider History obtained from patient and records. Medical history significant for chronic respiratory failure secondary to COPD on home O2, recurrent C. difficile, chronic anemia ( baseline hemoglobin 9), alcohol abuse as per records, past tobacco abuse. Last confinement September 27 to October 10, 2021 for sepsis secondary to recurrent C. difficile. Proctocolitis noted on CT. Surgery recommended transfer to tertiary care facility due to lactic acidosis but patient declined. Patient completed Dificid course and later discharged on oral vancomycin taper. 2 weeks ago, patient noted watery diarrhea symptoms with escalating achy abdominal pain all over. No chest pain, no shortness of breath. No fever, no chills. Some nausea without vomiting. Patient given oral vancomycin 1 dose at the ER for presumptive C. difficile. Initial SBP at the ER 80s. 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 difficile colitis, chronic respiratory failure on home oxygen, electrolyte imbalance Discharge Exam Lying in bed at with some discomfort due to abdominal discomfort and pain Constitutional + ill appearing and + thin Eyes PERRL, conjunctivae normal, anicteric sclerae ENMT external ear and nose normal, oropharynx normal Neck trachea midline, no thyromegaly Respiratory no respiratory distress Auscultation: lungs clear to auscultation bilaterally Cardiovascular Rate/Rhythm: regular rate and regular rhythm; not tachycardic Heart Sounds: normal S1 and normal S2; no murmur Extremities: no edema Gastrointestinal (Abdomen) Inspection/Auscultation: normal bowel sounds; abdomen not distended Percussion/Palpation: abdomen soft; abdomen nontender (Tender mostly lower quadrants without guarding and no rigidity) Neurologic normal touch/pain/proprioception and moves all extremities Psychiatric A+Ox3, euthymic affect Lymphatic no cervical or axillary lymphadenopathy Discharge Data Allergies Allergy/AdvReac Type Severity Reaction Status Date / Time No Known Allergies Allergy Verified 12/05/21 16:53 Consultations 12/05/21 19:21 ED Decision to Admit Stat 12/06/21 04:36 Consult Infectious Diseases Routine Ordered Studies 12/05/21 15:11 CT abd pelvis IV con only Stat Hospital Course (1) Sepsis: Sources C. difficile infection, resuscitated, see plan below (2) Recurrent Clostridioides difficile infection: This is possibly the third recurrence of C. difficile with evidence of severe proctocolitis on CT scan. Dificid has been started with decreased leukocytosis and clinical improvement generally. Diarrhea is still present with some abdominal pain still present. Infectious disease consulted for definitive recommendations. Stick to diet low in dairy products or caffeine which may stimulate the bowels. Monitor electrolytes with ongoing diarrhea. Continue IV fluid replacement for now. Daily BMP. Condition has not improved and he still has abdominal pain and diarrhea Electrolytes remained remarkable for low potassium Will administer regular potassium meter BMP Appreciate ID input and recommendation: Dificid 200 mg twice daily until 12/16/2021, then Dificid 200 mg daily until 12/26/2021. If available Bezliotoxcumab infusion prior to the end of oral therapy or fecal microbial transplant after a 48-hour washout of the oral antibiotic, Not recommended to use cholestyramine, loperamide or Florastor in this case Remains stable without any further improvement Will start PT and OT evaluation A. fib feels much better we will plan to discharge tomorrow Electrolytes have been replaced Diarrhea seems to be controlled-we will get PT and OT evaluation prior to discharge tomorrow His diarrhea is controlled and abdominal pain is gone He has had therapy evaluation and recommended home Will be discharged home this afternoon (3) Severe protein-calorie malnutrition: Nutrition has seen the patient and is supplementing with meals. Continue monitoring caloric intake. Currently patient has a good appetite. Diet advanced and has been tolerating diet (4) Chronic respiratory failure with hypoxia: Secondary to COPD, chronic, stable. Continue daily Roflumilast And Breo nightly. Continue oxygen as before (5) COPD (chronic obstructive pulmonary disease): Chronic, stable, as above. No acute exacerbation (6) Hypomagnesemia: Secondary to diarrhea, replace today with 4 g of mag, repeat level in a.m. Electrolytes have been replaced (7) Hypokalemia: 2/2 ongoing diarrhea, Replace and repeat in am Has hypophosphatemia as well Will give intravenous potassium phosphate Normalized (8) ETOH abuse: History of alcohol abuse but with multiple hospital stays, alcohol intake has been minimal. No signs or symptoms of withdrawal at this time. Continue CIWA assessment regularly. (9) DVT prophylaxis: Heparin Full code Disposition-pending clinical improvement and infectious disease results. Also pending PT/OT evaluations. Total Time Total Time Spent Total Time Spent (In Minutes): 35 minutes Discharge Plan Discharge Items Patient Disposition: Home - Self-Care Reason For Visit: SEPSIS Discharge Diagnosis: Sepsis secondary to recurrent C. difficile colitis, chronic respiratory failure on home oxygen, electrolyte imbalance Condition on Discharge: Fair Activity: Resume your previous activity Non-emergency contact: Primary Care Provider Call non-emergency contact if: you have any medication questions and your sympto ms worsen Follow-up/Referrals: Kavya Dillard CRNP [Primary Care Provider] - (Date & Time 12/16/2021 3:00 PM Provider GARRETT Root Department Family Practice [facility] ) Nisreen Jennings CRNP [Nurse Practitioner] - (Date & Time 12/17/2021 3:30 PM Provider GARRETT Smith Department Gastroenterology, [facility] ) Diet: Lactose Intolerant Addtl Attending Provider Instructions: Please take precautions to avoid falls Take your antibiotics as advised No change in your home medications Keep appointments with your healthcare providers Pending Studies at Discharge: No Stand-Alone Forms: My [facility] [employer], Smoking Cessation Medications and DC Order Prescriptions: New Dificid 200 mg tablet 200 mg PO UD Qty: 20 RF: 0 Continued Daliresp 500 mcg tablet 500 mcg PO QAM RF: 0 folic acid 1 mg tablet 1 mg PO QAM RF: 0 ProAir RespiClick 90 mcg/actuation aerosol powdr breath activated 2 puffs INH Q4H PRN (Reason: shortness of breath or wheezing) RF: 0 thiamine HCl (vitamin B1) 100 mg tablet 100 mg PO QAM RF: 0 cyanocobalamin (vitamin B-12) 100 mcg tablet 100 mcg PO DAILY RF: 0 fluticasone propion-salmeterol [Advair Diskus] 250-50 mcg/dose Blister With Device 1 inh INHALATION BID RF: 0 famotidine 10 mg Tablet 10 mg PO BID RF: 0 omeprazole 40 mg Capsule,Delayed Release(Dr/Ec) 40 mg PO DAILYBB RF: 0 acetaminophen [Tylenol Extra Strength] 500 mg Tablet 500 mg PO Q4H PRN (Reason: Pain) RF: 0 levalbuterol HCl [Xopenex] 1.25 mg/3 mL Solution For Nebulization 1.25 mg INHALATION TID RF: 0 multivitamin with minerals Tablet 1 tab PO DAILY RF: 0 ipratropium bromide 0.02 % Solution 2.5 ml INHALATION TID PRN (Reason: Shortness Of Breath Or Wheezing) RF: 0 potassium chloride 20 mEq Tablet Extended Release 20 meq PO DAILY RF: 0 Combivent Respimat 20-100 mcg/actuation mist 1 puff INHALATION QID RF: 0 Discontinued cholestyramine (with sugar) [Questran] 4 gram powder 4 g PO DAILY Qty: 348.6 RF: 0 Discharge Orders: Discharge Order (Routine); Ordered 12/12/21 Ordered By: Yadiel White Admission Data Admit Date/Time: 12/05/21 20:10 Attending Provider: Ydaiel White Admit Provider: Jer Desouza Primary Care Provider: Kavya Dillard Other Providers: Jer Desouza ; Gavino Hartman ; Liz Summers ; Faheem Mejia I. ; Rigoberto Agee II ; Tracie Duong ; Joni Isidro ; Channing Tim ; Yesi Lopez Other Interventions: Discharge Summary Assessment (RN) Last Done: 12/12/21 14:21
== END 2021-12-12 15:44 | disposition home or self-care (01) | DRG 871 ==
LOC: ED 14:18 → SUATTDRO 20:10 → 2S 20:10 → 2W 12-07 21:39

== ENCOUNTER 2022-06-20 02:39 | Inpatient (IN) ==
[2022-06-20 03:15] LABS: Basophils # (auto) 0.04 K/uL (0-0.2); Basophils % (auto) 0.2 %; Hematocrit (blood only) 39.8 % (40.1-51.0); Hemoglobin 12.8 g/dl (14.0-18.0); Immature Granulocytes # (auto) 0.27 K/uL (0.00-0.02); Immature Granulocytes % (auto) 1.3 %; Lymphocytes # (auto) 3.27 K/uL (1.2-3.4); Lymphocytes % (auto) 15.3 %; Mean Corpuscular Hemoglobin 30.5 pg (25.0-34.0); Mean Corpuscular Hgb Conc 32.2 g/dL (32.0-36.0); Mean Platelet Volume 10.5 fL (9.4-12.4); Monocytes # (auto) 1.26 K/uL (0.24-0.82); Monocytes % (auto) 5.9 %; Neutrophils # (auto) 16.52 K/uL (1.4-6.5); Neutrophils % (auto) 77.3 %; Platelet Count 315 K/uL (130-400); RDW Coefficient of Variation 14.7 % (11.5-14.5); RDW Standard Deviation 51.8 fL (36.4-46.3); Red Blood Count 4.19 M/uL (4.63-6.08); White Blood Count 21.36 K/ul (4.8-10.8)
[2022-06-20 03:28] LABS: Partial Thromboplastin Time 28.4 Seconds (21.0-31.0); Prothrombin Time 10.9 Seconds (9.0-12.0)
[2022-06-20 03:41] LABS: Albumin Globulin Ratio 0.9 (0.9-2); Albumin Level 3.8 gm/dl (3.4-5.0); Bilirubin,Total 0.7 mg/dl (0.2-1.0); Calcium 9.7 mg/dl (8.5-10.1); Creatinine Clr Calc Pharmacy 25.7 ml/min; Est GFR (Non-African American) 47.5 ml/min; Globulin 4.1 gm/dl (2.5-4.0); Magnesium 1.7 mg/dl (1.7-2.4); Potassium 4.3 mmol/L (3.5-5.1); Total Protein 7.9 gm/dl (6.0-8.3)
[2022-06-20 03:46] LABS: Troponin I High Sensitivity 14.8 pg/ml (0-20)
[2022-06-20 03:56] LABS: Influenza A virus by PCR Negative (Neg); Influenza B virus by PCR Negative (Neg); RSV by PCR Negative (Neg); SARS CoV2 RNA(COVID-19) Ceph NEGATIVE (Negative)
[2022-06-20] MEDS ORDERED: ALBUT/IPRATROP 3MG/0.5MG NEB 3 ML VIAL NEB STA (04:53)
--- NOTE | 2022-06-20 04:54 | Emergency Department Note ---
Impression & Plan Pneumonia ADMIT ED Provider Note HPI: The patient is a 81-year-old gentleman who presents emergency department with a chief complaint of left-sided chest discomfort and shortness of breath that is been ongoing for the past 4 days. Patient does have a history of COPD, states that he wears 4 L nasal cannula oxygen at baseline. Patient states he has had a harsh cough over the past several days, states that his chest pain worsens when he coughs. On arrival here to the ED the patient is hemodynamically stable on 4 L nasal cannula oxygen. ROS: - Per HPI *Outpatient medications and allergy history reviewed. *Pertinent external medical records reviewed. PE: General: Alert, frail-appearing HEENT: Normocephalic, trachea midline Eyes: Extraocular eye movement is intact, no scleral erythema Pulmonary: Diminished bilaterally with mild expiratory wheezing Cardio: Regular rate and rhythm GI: Abdomen is soft, nontender : No suprapubic tenderness MSK: No evidence of trauma or malformation of the extremities, no edema Skin: No evidence of rash Neuro: Alert, no focal deficits Psychiatric: Cooperative satellite project site monitor: - An order was placed for continuous cardiac monitoring - Patient was noted to be in sinus rhythm with a rate of 90 EKG: (As interpreted by myself): Rate: 123 Rhythm: Sinus tachycardia Intervals: Within normal limits ST changes: No ST elevation Time: 0245 Interventions provided in ED: -IV azithromycin, IV ceftriaxone, IV morphine, DuoNeb breathing treatment Medical Decision Making: Patient presented to the emergency department with cough and left-sided chest discomfort, given the patient's symptoms of chest pain with initial tachycardia, CT angiography of the chest was obtained that does show evidence of a left-sided pneumonia, no evidence of PE. Troponin is within normal limits, EKG does not show any acute ischemic changes. Patient's lab work shows a significant leukocytosis greater than 20,000, blood cultures were drawn in the ED, patient was treated with IV ceftriaxone and IV azithromycin over concern for community-acquired pneumonia. COVID-19 testing and influenza testing are negative. Given the patient's age, comorbidities, leukocytosis, and chest discomfort with coughing, I did discuss the case with t chaya on-call hospitalist for [facility] [facility] and the patient was placed for admission in stable condition. Patient is in agreement to the above plan. Disposition discussion held by myself with: Patient Diagnosis: 1. Left-sided pneumonia, community-acquired 2. Nonspecific chest discomfort, acute, left-sided 3. Leukocytosis, acute, otherwise unspecified Disposition: Admission Joni Gonzalez DO Emergency Medicine Past Med/Surg History Medical History Chronic obstructive pulmonary disease Chronic respiratory failure COPD exacerbation Elevated troponin I level Fibrosis of lung GERD with esophagitis History of alcohol abuse History of tobacco use Hypomagnesemia On home oxygen therapy WEARS O2 AT 2L CONT. Oxygen dependent Pulmonary hypertension Surgical History History of right cataract surgery History of tooth extraction Family History Mother Diverticulitis Father COPD (chronic obstructive pulmonary disease) Dad was a smoker Social History Smoking Status: Former smoker Tobacco Type: E-cigarettes / Vaping Second Hand Exposure: Yes; Hx Alcohol Use: Yes Alcohol type: beer Hx Substance Use: No Preferred Language: Romansh Communication Ability: Effective Still Operator Brandy Required: No Beliefs That Will Affect Care: None marital status: Current Living Situation: Spouse Other Information That Helps Us Care for You: No Feels Safe at Home: Yes Safety Concerns: Feels Safe At This Time Assistive Devices: Cane, Denture - Upper, Denture - Lower and Oxygen - Continuous Allergies Allergies Allergy/AdvReac Type Severity Reaction Status Date / Time No Known Allergies Allergy Verified 06/20/22 03:10 Home Meds Home Medications Medication Instructions Recorded Confirmed albuterol sulfate 90 mcg/actuation 2 puffs inhalation Q4H PRN 04/11/19 06/20/22 breath activated powder inhaler shortness of breath or wheezing (ProAir RespiClick) folic acid 1 mg tablet 1 mg PO QAM 04/11/19 06/20/22 roflumilast 500 mcg tablet 500 mcg PO QAM 04/11/19 06/20/22 (Daliresp) thiamine HCl (vitamin B1) 100 mg 100 mg PO QAM 04/11/19 06/20/22 tablet cyanocobalamin (vitamin B-12) 100 100 mcg PO DAILY 08/23/21 06/20/22 mcg tablet fluticasone 250 mcg-salmeterol 50 1 inh inhalation BID 08/23/21 06/20/22 mcg/dose blistr powdr for inhalation (Advair Diskus) acetaminophen 500 mg tablet 500 mg PO Q4H PRN Pain 09/27/21 06/20/22 (Tylenol Extra Strength) ipratropium bromide 0.02 % 2.5 ml inhalation TID PRN 09/27/21 06/20/22 solution for inhalation Shortness Of Breath Or Wheezing levalbuterol HCl 1.25 mg/3 mL 1.25 mg inhalation TID 09/27/21 06/20/22 solution for nebulization (Xopenex) multivitamin with minerals 1 tab PO DAILY 09/27/21 06/20/22 omeprazole 40 mg capsule,delayed 40 mg PO DAILYBB 09/27/21 06/20/22 release potassium chloride 20 mEq 20 meq PO DAILY 09/27/21 06/20/22 tablet,extended release ipratropium 20 mcg-albuterol 100 1 puff inhalation QID 12/05/21 06/20/22 mcg/actuation mist for inhalation (Combivent Respimat) famotidine 20 mg tablet 20 mg PO DAILY PRN Heartburn 06/20/22 06/20/22 vancomycin 125 mg capsule 125 mg PO DAILY 06/20/22 06/20/22 Results & Data (ED) Vital Signs Vital Signs - 24 hr 06/20/22 02:48 06/20/22 02:48 06/20/22 02:48 Temperature 37.1 C Temperature Source Oral Pulse Rate 126 H Pulse Rate [Apical] Pulse Rate from SpO2 Sensor Pulse Rhythm Irregular Respiratory Rate 30 H Respiratory Effort / Characteristics Accessory Muscle Use Respiratory Depth Deep Respiratory Pattern Tachypnea Blood Pressure 124/67 Blood Pressure [Left Arm] Blood Pressure Mean 86 Blood Pressure Mean [Left Arm] Pulse Oximetry 94 93 Oxygen Delivery Method Nasal Cannula Nasal Cannula Nasal Cannula Oxygen Flow Rate 4 4 4 Sepsis Recent Fever Within 48 Hours No Sepsis New/Unexplained Change in Mental Status No Sepsis Action Taken by Nursing No Action Required 06/20/22 03:50 06/20/22 04:00 06/20/22 05:00 Temperature Temperature Source Pulse Rate 112 H 112 H 96 H Pulse Rate [Apical] Pulse Rate from SpO2 Sensor 110 H Pulse Rhythm Respiratory Rate 21 27 H 30 H Respiratory Effort / Characteristics Respiratory Depth Respiratory Pattern Blood Pressure 103/64 115/60 107/66 Blood Pressure [Left Arm] Blood Pressure Mean 77 78 79 Blood Pressure Mean [Left Arm] Pulse Oximetry 97 97 96 Oxygen Delivery Method Nasal Cannula Nasal Cannula Nasal Cannula Oxygen Flow Rate 4 4 4 Sepsis Recent Fever Within 48 Hours Sepsis New/Unexplained Change in Mental Status Sepsis Action Taken by Nursing 06/20/22 07:00 Temperature Temperature Source Pulse Rate Pulse Rate [Apical] 95 H Pulse Rate from SpO2 Sensor Pulse Rhythm Respiratory Rate 36 H Respiratory Effort / Characteristics Spontaneous Respiratory Depth Normal Respiratory Pattern Tachypnea Blood Pressure Blood Pressure [Left Arm] 113/52 L Blood Pressure Mean Blood Pressure Mean [Left Arm] 72 Pulse Oximetry 98 Oxygen Delivery Method Room Air Oxygen Flow Rate Sepsis Recent Fever Within 48 Hours Sepsis New/Unexplained Change in Mental Status Sepsis Action Taken by Nursing Laboratory Data 06/20/22 03:00 06/20/22 03:00 Lab Results 06/20/22 06/20/22 06/20/22 Range/Units 03:00 03:00 03:00 WBC 21.36 H (4.8-10.8) K/ul RBC 4.19 L (4.63-6.08) M/uL Hgb 12.8 L (14.0-18.0) g/dl Hct 39.8 L (40.1-51.0) % MCV 95.0 (80.0-100.0) fL MCH 30.5 (25.0-34.0) pg MCHC 32.2 (32.0-36.0) g/dL RDW Std Deviation 51.8 H (36.4-46.3) fL RDW Coeff of Julissa 14.7 H (11.5-14.5) % Plt Count 315 (130-400) K/uL MPV 10.5 (9.4-12.4) fL Immature Gran % (Auto) 1.3 % Neut % (Auto) 77.3 % Lymph % (Auto) 15.3 % [place] % (Auto) 5.9 % Eos % (Auto) 0.0 % Baso % (Auto) 0.2 % Neut # (Auto) 16.52 H (1.4-6.5) K/uL Lymph # (Auto) 3.27 (1.2-3.4) K/uL [place] # (Auto) 1.26 H (0.24-0.82) K/uL Eos # (Auto) 0.00 (0-0.50) K/uL Baso # (Auto) 0.04 (0-0.2) K/uL Immature Gran # (Auto) 0.27 H (0.00-0.02) K/uL PT 10.9 (9.0-12.0) Seconds INR 1.0 (0.9-1.1) APTT 28.4 (21.0-31.0) Seconds PTT Ratio 1.0 Sodium 138 (136-145) mmol/L Potassium 4.3 (3.5-5.1) mmol/L Chloride 102 (98-107) mmol/L Carbon Dioxide 24 (21-32) mmol/L Anion Gap 12 H (3-11) BUN 42 H (6-23) mg/dl Creatinine 1.40 (0.6-1.4) mg/dl Est Cr Clr Drug Dosing 25.7 ml/min Est GFR ( Amer) 55.0 ml/min Est GFR (Non-Af Amer) 47.5 ml/min BUN/Creatinine Ratio 30.0 H (10-20) Glucose 133 H (70-99(Fasting)) mg/dl Calcium 9.7 (8.5-10.1) mg/dl Magnesium 1.7 (1.7-2.4) mg/dl Total Bilirubin 0.7 (0.2-1.0) mg/dl AST 14 (13-39) U/L ALT 8 (7-52) U/L Alkaline Phosphatase 116 H (34-104) U/L Troponin I High Sens 14.8 (0-20) pg/ml Total Protein 7.9 (6.0-8.3) gm/dl Albumin 3.8 (3.4-5.0) gm/dl Globulin 4.1 H (2.5-4.0) gm/dl Albumin/Globulin Ratio 0.9 (0.9-2) SARS-CoV-2 (PCR) (Negative) Influenza Type A (PCR) (Neg) Influenza Type B (PCR) (Neg) RSV (RT-PCR) (Neg) 06/20/22 Range/Units 03:00 WBC (4.8-10.8) K/ul RBC (4.63-6.08) M/uL Hgb (14.0-18.0) g/dl Hct (40.1-51.0) % MCV (80.0-100.0) fL MCH (25.0-34.0) pg MCHC (32.0-36.0) g/dL RDW Std Deviation (36.4-46.3) fL RDW Coeff of Julissa (11.5-14.5) % Plt Count (130-400) K/uL MPV (9.4-12.4) fL Immature Gran % (Auto) % Neut % (Auto) % Lymph % (Auto) % [place] % (Auto) % Eos % (Auto) % Baso % (Auto) % Neut # (Auto) (1.4-6.5) K/uL Lymph # (Auto) (1.2-3.4) K/uL [place] # (Auto) (0.24-0.82) K/uL Eos # (Auto) (0-0.50) K/uL Baso # (Auto) (0-0.2) K/uL Immature Gran # (Auto) (0.00-0.02) K/uL PT (9.0-12.0) Seconds INR (0.9-1.1) APTT (21.0-31.0) Seconds PTT Ratio Sodium (136-145) mmol/L Potassium (3.5-5.1) mmol/L Chloride (98-107) mmol/L Carbon Dioxide (21-32) mmol/L Anion Gap (3-11) BUN (6-23) mg/dl Creatinine (0.6-1.4) mg/dl Est Cr Clr Drug Dosing ml/min Est GFR ( Amer) ml/min Est GFR (Non-Af Amer) ml/min BUN/Creatinine Ratio (10-20) Glucose (70-99(Fasting)) mg/dl Calcium (8.5-10.1) mg/dl Magnesium (1.7-2.4) mg/dl Total Bilirubin (0.2-1.0) mg/dl AST (13-39) U/L ALT (7-52) U/L Alkaline Phosphatase (34-104) U/L Troponin I High Sens (0-20) pg/ml Total Protein (6.0-8.3) gm/dl Albumin (3.4-5.0) gm/dl Globulin (2.5-4.0) gm/dl Albumin/Globulin Ratio (0.9-2) SARS-CoV-2 (PCR) NEGATIVE (Negative) Influenza Type A (PCR) Negative (Neg) Influenza Type B (PCR) Negative (Neg) RSV (RT-PCR) Negative (Neg) Administered Medications Albuterol (Albut/Ipratrop 3mg/0.5mg Neb 3 Ml Vial) 3 ml NEB QIDR [facility]; Protocol Stop: 07/20/22 12:05 Last Admin: 06/20/22 16:22 Dose: 3 ml Documented By: [facility] Admin: 06/20/22 13:01 Dose: 3 ml Documented By: [email or web address] Cyanocobalamin (Cyanocobalamin (B-12) 100 Mcg Tablet) 100 mcg PO DAILY [facility] Stop: 07/20/22 12:05 Last Admin: 06/20/22 13:10 Dose: 100 mcg Documented By: [id number] Fluticasone/Vilanterol (Fluticasone/Vilanterol 200/25mcg 14 Puffs/Inhaler) 1 puffs INH DAILY [facility] Stop: 07/20/22 12:29 Last Admin: 06/20/22 13:17 Dose: 1 puffs Documented By: [id number] Folic Acid (Folic Acid 1 Mg Tab) 1 mg PO QAM [facility] Stop: 07/20/22 12:05 Last Admin: 06/20/22 13:10 Dose: 1 mg Documented By: [id number] Guaifenesin (Guaifenesin 200 Mg Tab) 200 mg PO Q6H [facility] Stop: 07/20/22 12:05 Last Admin: 06/20/22 14:47 Dose: 200 mg Documented By: [id number] Oxycodone HCl (Oxycodone Hcl Ir 5 Mg Tab (Immediate Release)) 5 mg PO Q4H PRN PRN Reason: Pain Stop: 07/04/22 12:05 Last Admin: 06/20/22 14:47 Dose: 5 mg Documented By: [id number] Potassium Chloride (Potassium Chloride Crtab 20 Meq Tabcr) 20 meq PO DAILY [facility] Stop: 07/20/22 12:29 Last Admin: 06/20/22 13:11 Dose: 20 meq Documented By: [id number] Roflumilast (Roflumilast 500 Mcg Tab) 500 mcg PO QAM [facility] Stop: 07/20/22 12:29 Last Admin: 06/20/22 13:11 Dose: 500 mcg Documented By: [id number] Thiamine HCl (Thiamine Hcl 100 Mg Tab) 100 mg PO QAM CHILO Stop: 07/20/22 12:29 Last Admin: 06/20/22 13:11 Dose: 100 mg Documented By: [id number] Discontinued Medications Albuterol (Albut/Ipratrop 3mg/0.5mg Neb 3 Ml Vial) 3 ml NEB NOW STA; Protocol Stop: 06/20/22 04:54 Last Admin: 06/20/22 05:23 Dose: 3 ml Documented By: LISSETTE Ceftriaxone Sodium 1,000 mg/ (Dextrose) 50 mls @ 100 mls/hr IV NOW STA Stop: 06/20/22 07:42 Last Infusion: 06/20/22 08:11 Dose: 0 mls/hr Documented By: Admin: 06/20/22 07:41 Dose: 100 mls/hr Documented By: DEANNE Azithromycin 500 mg/ Dextrose 255 mls @ 125 mls/hr IV ONE ONE Stop: 06/20/22 09:15 Last Infusion: 06/20/22 10:24 Dose: 0 mls/hr Documented By: Admin: 06/20/22 08:20 Dose: 125 mls/hr Documented By: DEANNE Ioversol (Optiray 320 500ml) 112 ml IV ONCE ONE Stop: 06/20/22 05:20 Last Admin: 06/20/22 05:19 Dose: 112 ml Documented By: OKBibiana Morphine Sulfate (Morphine Sulfate 4 Mg/Ml 1 Ml Carp\Vial) 4 mg IV NOW STA Stop: 06/20/22 08:03 Last Admin: 06/20/22 08:20 Dose: 4 mg Documented By: Imaging Data Radiologist's Impression: Chest X-Ray 06/20/22 02:56 XR chest 1V portable CLINICAL HISTORY: SOB TECHNIQUE: Single frontal radiograph of the chest was obtained. Comparison: Comparison is made to chest radiograph 12/05/2021 FINDINGS: No lines and tubes are seen. The cardiomediastinal silhouette is normal. Left greater than right lower lung airspace opacities are seen. Emphysema is noted. No evidence of pleural effusion or pneumothorax. IMPRESSION: Left greater than right lower lung airspace opacities compatible with pneumonia and/or aspiration. Severe emphysema. ACT 112: Negative or not required by law. Electronically signed by: Jose Miguel Jiménez M.D. 06/20/2022 7:37 AM Chest CTA 06/20/22 04:53 CT angio chest PE protocol CLINICAL HISTORY: PE TECHNIQUE: Multidetector row helical CT of the chest was performed with angiographic protocol. Coronal and sagittal reformations were obtained. Coronal and sagittal MIPS were obtained from the axial data set and were submitted for review. Automated dose lowering techniques and/or adjustment according to patient size were utilized for this exam. CT DOSE: 286.63 mGy.cm Comparison: Comparison is made to CT chest 04/16/2021 FINDINGS: Lungs and pleura: Extensive emphysematous changes are seen and there is bronchial wall thickening again noted. There is consolidative opacity in the left greater than right lower lungs. Heart and pericardium: Heart size is normal. No pericardial effusion. Vessels: Evaluation for pulmonary embolism is limited due to patient motion. No evidence of central, lobar, or segmental embolus. Mediastinum and sergio: Subcentimeter lymph nodes are seen. Chest wall and lower neck: Unremarkable. Abdomen: A hiatal hernia is seen. Bones: Degenerative changes in the thoracic spine. T7 compression deformity is noted. This is unchanged from prior exam. IMPRESSION: 1. No evidence of pulmonary embolism. 2. Pneumonia in the left greater than right lower lungs. ACT 112: Negative or not required by law. Electronically signed by: Jose Miguel Jiménez M.D. 06/20/2022 7:06 AM Discharge Plan Visit Data Chief Complaint: Shortness of Breath/Dyspnea ED Provider: Joni Gonzalez Discharge Problem: Pneumonia Patient Disposition: Admitted As Inpatient : Pneumonia Qualifiers: Pneumonia type: due to unspecified organism Laterality: left Lung location: unspecified part of lung Qualified Code(s): J18.9 - Pneumonia, unspecified organism
[2022-06-20] MEDS ORDERED: OPTIRAY 320 500ml IV ONE (05:19)
--- NOTE | 2022-06-20 07:09 | CT Scan Report ---
CT angio chest PE protocol CLINICAL HISTORY: PE TECHNIQUE: Multidetector row helical CT of the chest was performed with angiographic protocol. [place] l and sagittal reformations were obtained. Coronal and sagittal MIPS were obtained from the axial joshua a set and were submitted for review. Automated dose lowering techniques and/or adjustment according to patient size were utilized for this exam. CT DOSE: 286.63 mGy.cm Comparison: Comparison is made to CT chest 04/16/2021 FINDINGS: Lungs and pleura: Extensive emphysematous changes are seen and there is bronchial wall thickening aga in noted. There is consolidative opacity in the left greater than right lower lungs. Heart and pericardium: Heart size is normal. No pericardial effusion. Vessels: Evaluation for pulmonary embolism is limited due to patient motion. No evidence of central, lobar, or segmental embolus. Mediastinum and sergio: Subcentimeter lymph nodes are seen. Chest wall and lower neck: Unremarkable. Abdomen: A hiatal hernia is seen. Bones: Degenerative changes in the thoracic spine. T7 compression deformity is noted. This is unchang ed from prior exam. IMPRESSION: 1. No evidence of pulmonary embolism. 2. Pneumonia in the left greater than right lower lungs. ACT 112: Negative or not required by law. Electronically signed by: Jose Miguel Jiménez M.D. 06/20/2022 7:06 AM
[2022-06-20] MEDS ORDERED: cefTRIAXone SODIUM 1,000 MG in DEXTROSE 5% AD-VAN 50 ML IV STA (07:13)
[2022-06-20] MEDS ORDERED: AZITHROMYCIN 500 MG in DEXTROSE 5% 250 ML IV ONE (07:13)
--- NOTE | 2022-06-20 07:39 | XRay Report ---
XR chest 1V portable CLINICAL HISTORY: SOB TECHNIQUE: Single frontal radiograph of the chest was obtained. Comparison: Comparison is made to chest radiograph 12/05/2021 FINDINGS: No lines and tubes are seen. The cardiomediastinal silhouette is normal. Left greater than right lowe r lung airspace opacities are seen. Emphysema is noted. No evidence of pleural effusion or pneumothor ax. IMPRESSION: Left greater than right lower lung airspace opacities compatible with pneumonia and/or aspiration. Se pollo emphysema. ACT 112: Negative or not required by law. Electronically signed by: Jose Miguel Jiménez M.D. 06/20/2022 7:37 AM
[2022-06-20] MEDS ORDERED: MoRPHine SULFATE 4 MG/ML 1 ML CARP\\VIAL IV STA (08:02)
--- NOTE | 2022-06-20 08:55 | History & Physical Report ---
Date of Service June 20, 2022 Assessment & Plan (1) Pneumonia: (2) COPD (chronic obstructive pulmonary disease): (3) Dyspnea: Plan: Chronic respiratory failure with hypoxia Present on admission with worsening SOB associated yellowish productive cough CXR showed Left greater than right lower lung airspace opacities compatible with pneumonia and/or aspiration. CTA chest showed no evidence of pulmonary embolism. Pneumonia in the left greater than right lower lungs. received IV Rocephin and Zithromax in the ER, Will continue IV abx Will check sputum cx Continue oxygen supplement, neb treatment, guaifenesin, incentive spirometry, flutter valve, Advair, Daliresp Diarrhea Possible related to Daliresp Will check stool for Cdif History of Alcohol abuse Denies any use of alcohol for about year Severe protein-calorie malnutrition: BMI 13 Will encourage protein intake Will consult nutrition DVT prophylaxis Lovenox History of Present Illness Chief Complaint: SOB Primary Care Provider: GARRETT Kaiser 80 yo PMH with COPD on chronic oxygen dependent, history of alcohol abuse, Severe protein-calorie malnutrition, chronic anemia present to the ER with SOB associated with productive cough. Pt said that his symptoms started few days ago where he development SOB with minimal exertion. He said that he has been having yellowish productive cough. He said that whenever he coughs that he has tenderness in his chest wall. Pt said that his heat has not been working well at home because his bedroom is very cold in the 30's. he said that he feels weak and poor appetite. Pt said that he has been having recurrent watery diarrhea. He said that he has pain with movement. Pt denies any recent travel or sick contact. Denies any chest pain, palpitation, dizziness and SOB. Allergies Allergy/AdvReac Type Severity Reaction Status Date / Time No Known Allergies Allergy Verified 06/20/22 03:10 Home Medications Medication Instructions Recorded Confirmed Type albuterol sulfate 90 mcg/actuation 2 puffs inhalation Q4H PRN 04/11/19 06/20/22 History breath activated powder inhaler shortness of breath or wheezing (ProAir RespiClick) folic acid 1 mg tablet 1 mg PO QAM 04/11/19 06/20/22 History roflumilast 500 mcg tablet 500 mcg PO QAM 04/11/19 06/20/22 History (Daliresp) thiamine HCl (vitamin B1) 100 mg 100 mg PO QAM 04/11/19 06/20/22 History tablet cyanocobalamin (vitamin B-12) 100 100 mcg PO DAILY 08/23/21 06/20/22 History mcg tablet fluticasone 250 mcg-salmeterol 50 1 inh inhalation BID 08/23/21 06/20/22 History mcg/dose blistr powdr for inhalation (Advair Diskus) acetaminophen 500 mg tablet 500 mg PO Q4H PRN Pain 09/27/21 06/20/22 History (Tylenol Extra Strength) ipratropium bromide 0.02 % 2.5 ml inhalation TID PRN 09/27/21 06/20/22 History solution for inhalation Shortness Of Breath Or Wheezing levalbuterol HCl 1.25 mg/3 mL 1.25 mg inhalation TID 09/27/21 06/20/22 History solution for nebulization (Xopenex) multivitamin with minerals 1 tab PO DAILY 09/27/21 06/20/22 History omeprazole 40 mg capsule,delayed 40 mg PO DAILYBB 09/27/21 06/20/22 History release potassium chloride 20 mEq 20 meq PO DAILY 09/27/21 06/20/22 History tablet,extended release ipratropium 20 mcg-albuterol 100 1 puff inhalation QID 12/05/21 06/20/22 History mcg/actuation mist for inhalation (Combivent Respimat) famotidine 20 mg tablet 20 mg PO DAILY PRN Heartburn 06/20/22 06/20/22 History vancomycin 125 mg capsule 125 mg PO DAILY 06/20/22 06/20/22 History Past Med/Surg History Medical History Chronic obstructive pulmonary disease Chronic respiratory failure COPD exacerbation Elevated troponin I level Fibrosis of lung GERD with esophagitis History of alcohol abuse History of tobacco use Hypomagnesemia On home oxygen therapy WEARS O2 AT 2L CONT. Oxygen dependent Pulmonary hypertension Surgical History History of right cataract surgery History of tooth extraction Family History Mother Diverticulitis Father COPD (chronic obstructive pulmonary disease) Dad was a smoker Social History Smoking Status: Former smoker Tobacco Type: E-cigarettes / Vaping Second Hand Exposure: Yes; Hx Alcohol Use: Yes Alcohol type: beer Hx Substance Use: No Preferred Language: Telugu Communication Ability: Effective Cement Breaker Required: No Beliefs That Will Affect Care: None marital status: Current Living Situation: Spouse Other Information That Helps Us Care for You: No Feels Safe at Home: Yes Safety Concerns: Feels Safe At This Time Assistive Devices: Cane, Denture - Upper, Denture - Lower and Oxygen - Continuous Review of Systems Review of Systems: All systems reviewed & are unremarkable except as noted in HPI & below Physical Exam Physical Exam: General- No acute distress Head- atraumatic Eyes- PERRL, EOMI, ENT- oropharynx clear Neck- supple, no JVD Lungs- No wheezing Heart- +tachycardia, no murmur Abdomen- normal bowel sounds, +tenderness Extremities- no calf tenderness Neuro- alert, oriented x 3; PERRL, EOMI; no facial palsy; no dysarthria Skin- warm & dry Results & Data Results & Data ([facility]) Vital Signs (Past 12 Hours) Vital Signs Temp Pulse Pulse Resp BP BP Pulse Ox 06/20/22 07:00 95 H 36 H 113/52 L 98 06/20/22 05:00 96 H 30 H 107/66 96 06/20/22 04:00 112 H 27 H 115/60 97 06/20/22 03:50 112 H 21 103/64 97 06/20/22 02:48 93 06/20/22 02:48 37.1 C 126 H 30 H 124/67 94 06/20/22 02:48 O2 Del Method O2 Flow Rate 06/20/22 07:00 Room Air 06/20/22 05:00 Nasal Cannula 4 06/20/22 04:00 Nasal Cannula 4 06/20/22 03:50 Nasal Cannula 4 06/20/22 02:48 Nasal Cannula 4 06/20/22 02:48 Nasal Cannula 4 06/20/22 02:48 Nasal Cannula 4 Diagnostic Findings Laboratory Results WBC 21.36 K/ul (4.8-10.8) H 06/20/22 03:00 RBC 4.19 M/uL (4.63-6.08) L 06/20/22 03:00 Hgb 12.8 g/dl (14.0-18.0) L 06/20/22 03:00 Hct 39.8 % (40.1-51.0) L 06/20/22 03:00 MCV 95.0 fL (80.0-100.0) 06/20/22 03:00 MCH 30.5 pg (25.0-34.0) 06/20/22 03:00 MCHC 32.2 g/dL (32.0-36.0) 06/20/22 03:00 RDW Std Deviation 51.8 fL (36.4-46.3) H 06/20/22 03:00 RDW Coeff of Julissa 14.7 % (11.5-14.5) H 06/20/22 03:00 Plt Count 315 K/uL (130-400) 06/20/22 03:00 MPV 10.5 fL (9.4-12.4) 06/20/22 03:00 Immature Gran % (Auto) 1.3 % 06/20/22 03:00 Neut % (Auto) 77.3 % 06/20/22 03:00 Lymph % (Auto) 15.3 % 06/20/22 03:00 [place] % (Auto) 5.9 % 06/20/22 03:00 Eos % (Auto) 0.0 % 06/20/22 03:00 Baso % (Auto) 0.2 % 06/20/22 03:00 Neut # (Auto) 16.52 K/uL (1.4-6.5) H 06/20/22 03:00 Lymph # (Auto) 3.27 K/uL (1.2-3.4) 06/20/22 03:00 [place] # (Auto) 1.26 K/uL (0.24-0.82) H 06/20/22 03:00 Eos # (Auto) 0.00 K/uL (0-0.50) 06/20/22 03:00 Baso # (Auto) 0.04 K/uL (0-0.2) 06/20/22 03:00 Immature Gran # (Auto) 0.27 K/uL (0.00-0.02) H 06/20/22 03:00 PT 10.9 Seconds (9.0-12.0) 06/20/22 03:00 INR 1.0 (0.9-1.1) 06/20/22 03:00 APTT 28.4 Seconds (21.0-31.0) 06/20/22 03:00 PTT Ratio 1.0 06/20/22 03:00 Sodium 138 mmol/L (136-145) 06/20/22 03:00 Potassium 4.3 mmol/L (3.5-5.1) 06/20/22 03:00 Chloride 102 mmol/L (98-107) 06/20/22 03:00 Carbon Dioxide 24 mmol/L (21-32) 06/20/22 03:00 Anion Gap 12 (3-11) H 06/20/22 03:00 BUN 42 mg/dl (6-23) H 06/20/22 03:00 Creatinine 1.40 mg/dl (0.6-1.4) 06/20/22 03:00 Est Cr Clr Drug Dosing 25.7 ml/min 06/20/22 03:00 Est GFR ( Amer) 55.0 ml/min 06/20/22 03:00 Est GFR (Non-Af Amer) 47.5 ml/min 06/20/22 03:00 BUN/Creatinine Ratio 30.0 (10-20) H 06/20/22 03:00 Glucose 133 mg/dl (70-99(Fasting)) H 06/20/22 03:00 Calcium 9.7 mg/dl (8.5-10.1) 06/20/22 03:00 Magnesium 1.7 mg/dl (1.7-2.4) 06/20/22 03:00 Total Bilirubin 0.7 mg/dl (0.2-1.0) 06/20/22 03:00 AST 14 U/L (13-39) 06/20/22 03:00 ALT 8 U/L (7-52) 06/20/22 03:00 Alkaline Phosphatase 116 U/L (34-104) H 06/20/22 03:00 Troponin I High Sens 14.8 pg/ml (0-20) 06/20/22 03:00 Total Protein 7.9 gm/dl (6.0-8.3) 06/20/22 03:00 Albumin 3.8 gm/dl (3.4-5.0) 06/20/22 03:00 Globulin 4.1 gm/dl (2.5-4.0) H 06/20/22 03:00 Albumin/Globulin Ratio 0.9 (0.9-2) 06/20/22 03:00 SARS-CoV-2 (PCR) NEGATIVE (Negative) 06/20/22 03:00 Influenza Type A (PCR) Negative (Neg) 06/20/22 03:00 Influenza Type B (PCR) Negative (Neg) 06/20/22 03:00 RSV (RT-PCR) Negative (Neg) 06/20/22 03:00 Impressions Chest X-Ray 06/20/22 02:56 XR chest 1V portable CLINICAL HISTORY: SOB TECHNIQUE: Single frontal radiograph of the chest was obtained. Comparison: Comparison is made to chest radiograph 12/05/2021 FINDINGS: No lines and tubes are seen. The cardiomediastinal silhouette is normal. Left greater than right lower lung airspace opacities are seen. Emphysema is noted. No evidence of pleural effusion or pneumothorax. IMPRESSION: Left greater than right lower lung airspace opacities compatible with pneumonia and/or aspiration. Severe emphysema. ACT 112: Negative or not required by law. Electronically signed by: Jose Miguel Jiménez M.D. 06/20/2022 7:37 AM Chest CTA 06/20/22 04:53 CT angio chest PE protocol CLINICAL HISTORY: PE TECHNIQUE: Multidetector row helical CT of the chest was performed with angiographic protocol. Coronal and sagittal reformations were obtained. Coronal and sagittal MIPS were obtained from the axial data set and were submitted for review. Automated dose lowering techniques and/or adjustment according to patient size were utilized for this exam. CT DOSE: 286.63 mGy.cm Comparison: Comparison is made to CT chest 04/16/2021 FINDINGS: Lungs and pleura: Extensive emphysematous changes are seen and there is bronchial wall thickening again noted. There is consolidative opacity in the left greater than right lower lungs. Heart and pericardium: Heart size is normal. No pericardial effusion. Vessels: Evaluation for pulmonary embolism is limited due to patient motion. No evidence of central, lobar, or segmental embolus. Mediastinum and sergio: Subcentimeter lymph nodes are seen. Chest wall and lower neck: Unremarkable. Abdomen: A hiatal hernia is seen. Bones: Degenerative changes in the thoracic spine. T7 compression deformity is noted. This is unchanged from prior exam. IMPRESSION: 1. No evidence of pulmonary embolism. 2. Pneumonia in the left greater than right lower lungs. ACT 112: Negative or not required by law. Electronically signed by: Jose Miguel Jiménez M.D. 06/20/2022 7:06 AM (1) Dyspnea Dyspnea type: dyspnea on exertion Qualified Code(s): R06.00 - Dyspnea, unspecified
[2022-06-20] MEDS ORDERED: FLUTICASONE/SALMETEROL 250/50 (ADVAIR) 14 PUFF/1 INHALER INH SCH (12:06)
[2022-06-20] MEDS ORDERED: IPRATROPIUM BROMIDE/ALBUTEROL respimat INH INH SCH (12:06)
[2022-06-20] MEDS ORDERED: FAMOTIDINE 20 MG TAB PO PRN (12:06)
[2022-06-20] MEDS ORDERED: ALBUTEROL HFA 8 GM INHALER INH PRN (12:14)
[2022-06-20] MEDS: ALBUT/IPRATROP 3MG/0.5MG NEB 3 ML VIAL NEB SCH ×3 (13:01→20:33)
[2022-06-20] MEDS: CYANOCOBALAMIN (B-12) 100 MCG TABLET PO SCH (13:10)
[2022-06-20] MEDS: FOLIC ACID 1 MG TAB PO SCH (13:10)
[2022-06-20] MEDS: POTASSIUM CHLORIDE CRTAB 20 MEQ TABCR PO SCH (13:11)
[2022-06-20] MEDS: ROFLUMILAST 500 MCG TAB PO SCH (13:11)
[2022-06-20] MEDS: THIAMINE HCL 100 MG TAB PO SCH (13:11)
[2022-06-20] MEDS: FLUTICASONE/VILANTEROL 200/25MCG 14 PUFFS/INHALER INH SCH (13:17)
[2022-06-20] MEDS: oxyCODONE HCL IR 5 MG TAB (IMMEDIATE RELEASE) PO PRN ×2 (14:47→20:41)
[2022-06-20] MEDS: guaiFENesin 200 MG TAB PO SCH ×3 (14:47→23:18)
[2022-06-20] MEDS ORDERED: XOPENEX/ATROVENT 1.25mg/0.5MG NEB COMBO NEB STA (19:42)
[2022-06-20] MEDS ORDERED: methylPREDNISolone 40 MG in SYRINGE 0 ML IV STA (19:42)
[2022-06-20] MEDS ORDERED: LEVALBUTEROL 1.25MG/0.5ML NEB INH SCH (19:45)
[2022-06-20] MEDS ORDERED: ALBUMIN 25% 100 mL 25 GM/100 ML VIAL IV ONE (19:45)
[2022-06-20] MEDS ORDERED: IPRATROPIUM BROMIDE NEB SOLN 0.02% 2.5 ML VIAL INH SCH (19:45)
--- NOTE | 2022-06-20 19:46 | Communication Note ---
Date of Service: June 20, 2022 Patient hypoxemic O2 sats 80s, hypotensive blood pressure 80s upon arrival at the floor as per RN Bigeminy on the monitor as per RN. Chest x-ray as per my interpretation bilateral infiltrates left greater than the right AP Hypotension secondary to sepsis/hypovolemia Hypoxemic respiratory failure secondary to likely COPD exacerbation from probable aspiration pneumonia Bigeminy on the monitor IVF bolus now Supplemental O2 Baseline ABG Steroid course, nebs RTC for COPD exacerbation Zosyn to replace ceftriaxone and azithromycin for probable aspiration pneumonia in the setting of alcohol abuse history Supplement magnesium given bigeminy on the monitor. Will relay to AM provider.
[2022-06-20] MEDS ORDERED: PIPERACILLIN/TAZOBACTAM 4.5 GM in DEXTROSE 5% 100 ML IV ONE (19:50)
[2022-06-20] MEDS ORDERED: SODIUM CHLORIDE 0.9% 1000ML 1,000 ML IV ONE ×2 (19:58→22:00)
[2022-06-20] MEDS ORDERED: LEVALBUTEROL 1.25MG/0.5ML NEB INH ONE (20:15)
[2022-06-20] MEDS ORDERED: IPRATROPIUM BROMIDE NEB SOLN 0.02% 2.5 ML VIAL INH ONE (20:15)
[2022-06-20] MEDS: MAGNESIUM SULFATE / D5W 1 GM/100 ML BAG IV SCH ×2 (20:19→21:04)
[2022-06-20 20:26] LABS: Allen Test Pos (Pos); Base Excess ABG -1.6 mEq/L (-9-1.8); HCO3 ABG 22 mmol/L (19-24); Oxygen Saturation ABG 98.2 % (90-95); PCO2 ABG 31 mmHg (35-46); PO2 ABG 81 mmHg (80-95); pH ABG 7.45 (7.35-7.45)
--- NOTE | 2022-06-20 20:48 | XRay Report ---
XR chest 1V portable CLINICAL HISTORY: low o2 TECHNIQUE: Single frontal radiograph of the chest was obtained. Comparison: Comparison is made to chest radiograph 06/20/2022 FINDINGS: No lines and tubes are seen. The cardiomediastinal silhouette is normal. Reticular interstitial opaci ties are seen. Airspace opacity is seen in the left lower lung. No evidence of pleural effusion or pn eumothorax. IMPRESSION: Findings are compatible with continued pneumonia in the left lower lobe. Right lower lung airspace op acities are somewhat less spiculated on current exam and may represent improved atelectasis ACT 112: Negative or not required by law. Electronically signed by: Jose Miguel Jiménez M.D. 06/20/2022 8:47 PM
[2022-06-20] MEDS ORDERED: ENOXAPARIN INJ 30 MG/0.3 ML SYR SQ SCH (21:00)
[2022-06-21] MEDS: PIPERACILLIN/TAZOBACTAM 3.375 GM in DEXTROSE 5% 100 ML IV SCH ×3 (02:42→17:48)
[2022-06-21] MEDS: guaiFENesin 200 MG TAB PO SCH ×3 (06:00→17:48)
[2022-06-21] MEDS: PANTOprazole 40 MG TAB PO SCH (06:00)
[2022-06-21 06:37] LABS: Hematocrit (blood only) 26.9 % (40.1-51.0); Hemoglobin 8.9 g/dl (14.0-18.0); Mean Corpuscular Hemoglobin 30.2 pg (25.0-34.0); Mean Corpuscular Hgb Conc 33.1 g/dL (32.0-36.0); Mean Corpuscular Volume 91.2 fL (80.0-100.0); Platelet Count 185 K/uL (130-400); RDW Coefficient of Variation 14.5 % (11.5-14.5); RDW Standard Deviation 48.5 fL (36.4-46.3); Red Blood Count 2.95 M/uL (4.63-6.08); White Blood Count 11.58 K/ul (4.8-10.8)
[2022-06-21 06:40] LABS: BUN Creatinine Ratio 35.3 (10-20); Calcium 8.3 mg/dl (8.5-10.1); Creatinine Clr Calc Pharmacy 35.8 ml/min; Est GFR (Non-African American) 59.6 ml/min; Potassium 3.9 mmol/L (3.5-5.1)
[2022-06-21] MEDS ORDERED: cefTRIAXone SODIUM 1,000 MG in DEXTROSE 5% AD-VAN 50 ML IV SCH (08:00)
[2022-06-21] MEDS: FLUTICASONE/VILANTEROL 200/25MCG 14 PUFFS/INHALER INH SCH (08:10)
[2022-06-21] MEDS: MULTIVITAMIN TAB PO SCH (08:11)
[2022-06-21] MEDS: POTASSIUM CHLORIDE CRTAB 20 MEQ TABCR PO SCH (08:11)
[2022-06-21] MEDS: CYANOCOBALAMIN (B-12) 100 MCG TABLET PO SCH (08:11)
[2022-06-21] MEDS: THIAMINE HCL 100 MG TAB PO SCH (08:11)
[2022-06-21] MEDS: predniSONE 20 MG TAB PO SCH (08:11)
[2022-06-21] MEDS: ROFLUMILAST 500 MCG TAB PO SCH (08:11)
[2022-06-21] MEDS: FOLIC ACID 1 MG TAB PO SCH (08:11)
[2022-06-21] MEDS ORDERED: XOPENEX/ATROVENT 1.25mg/0.5MG NEB COMBO NEB SCH (09:00)
[2022-06-21] MEDS ORDERED: LEVALBUTEROL 1.25MG/0.5ML NEB INH SCH (09:00)
[2022-06-21] MEDS ORDERED: IPRATROPIUM BROMIDE NEB SOLN 0.02% 2.5 ML VIAL INH SCH (09:00)
[2022-06-21] MEDS ORDERED: AZITHROMYCIN 500 MG in DEXTROSE 5% 250 ML IV SCH (09:00)
[2022-06-21] MEDS ORDERED: FLUTICASONE/VILANTEROL 200/25MCG 14 PUFFS/INHALER INH SCH (09:00)
--- NOTE | 2022-06-21 17:15 | Hospitalist Progress Note ---
Date of Service June 21, 2022 Assessment & Plan (1) Pneumonia: (2) COPD (chronic obstructive pulmonary disease): (3) Dyspnea: Plan: Chronic respiratory failure with hypoxia Present on admission with worsening SOB associated yellowish productive cough CXR showed Left greater than right lower lung airspace opacities compatible with pneumonia and/or aspiration. CTA chest showed no evidence of pulmonary embolism. Pneumonia in the left greater than right lower lungs. Received IV Rocephin and Zithromax in the ER Rocephin changed last night to Zosyn ad continue Azithromycin Continue prednisone Blood cx no growth Sputum cx pending Continue oxygen supplement, neb treatment, guaifenesin, incentive spirometry, flutter valve, Advair, Daliresp Diarrhea Possible related to Daliresp diarrhea improved Check stool for Cdif if diarrhea persists Anemia Hgb dropped to 8.9 ( Possible due to IVF dilution) Will hold Lovenox subq for now Continue monitor CBC History of Alcohol abuse Pt denies any history of DT of alcohol withdrawal Last used of alcohol about 6 days ago where he had 2 beers Continue monitor closely for sign of Alcohol withdrawal and DT Severe protein-calorie malnutrition: BMI 13 Continue encourage protein intake Will consult nutrition DVT prophylaxis Lovenox hold due to dropped in hgb Will add SCD Admission and Anticipated Discharge Date Admission Date: June 20, 2022 Subjective Pt was seen and examined for follow up of SOB Lying in bed with no acute distress He said that breathing and cough slightly improve Denies any chest pain, palpitation, dizziness and SOB Review of Systems Review of Systems: All systems reviewed & are unremarkable except as noted in Subjective Physical Exam Physical Exam: General- No acute distress Head- atraumatic Eyes- PERRL, EOMI, ENT- oropharynx clear Neck- supple, no JVD Lungs- No wheezing Heart- +tachycardia, no murmur Abdomen- normal bowel sounds, +tenderness Extremities- no calf tenderness Neuro- alert, oriented x 3; PERRL, EOMI; no facial palsy; no dysarthria Skin- warm & dry Results & Data Results & Data ([facility] [place]) Vital Signs (Past 12 Hours) Vital Signs Temp Pulse Resp BP Pulse Ox O2 Del Method O2 Flow Rate 06/21/22 15:30 36.4 C L 69 19 114/53 L 100 Oxymask 4 06/21/22 11:30 36.4 C L 81 19 106/54 L 99 Oxymask 4 06/21/22 08:30 Oxymask 4 06/21/22 07:16 36.3 C L 68 18 113/61 99 Oxymask 4 06/21/22 07:14 92 H 16 100 Oxymask 4 (1) Dyspnea Dyspnea type: dyspnea on exertion Qualified Code(s): R06.00 - Dyspnea, unspecified
[2022-06-21] MEDS: IPRATROPIUM BROMIDE NEB SOLN 0.02% 2.5 ML VIAL INH SCH (19:39)
[2022-06-21] MEDS: LEVALBUTEROL 1.25MG/0.5ML NEB INH SCH (19:39)
--- NOTE | 2022-06-21 21:18 | Electrocardiogram Report ---
Test Reason : Blood Pressure : / mmHG Vent. Rate : 123 BPM Atrial Rate : 123 BPM P-R Int : 134 ms QRS Dur : 074 ms QT Int : 272 ms P-R-T Axes : 076 086 071 degrees QTc Int : 389 ms Sinus tachycardia Otherwise normal ECG When compared with ECG of 05-DEC-2021 14:32, Nonspecific T wave abnormality has replaced inverted T waves in Inferior leads Confirmed by Paul Wayne ([id number]) on 06/21/2022 9:18:40 PM Referred By: REFERRED SELF Confirmed By:Paul Wayne
--- NOTE | 2022-06-21 21:45 | Electrocardiogram Report ---
Test Reason : Blood Pressure : / mmHG Vent. Rate : 088 BPM Atrial Rate : 088 BPM P-R Int : 134 ms QRS Dur : 078 ms QT Int : 342 ms P-R-T Axes : 065 084 086 degrees QTc Int : 413 ms Sinus rhythm with frequent Premature ventricular complexes Septal infarct , age undetermined Abnormal ECG When compared with ECG of 20-JUN-2022 02:45, (unconfirmed) Premature ventricular complexes are now Present Nonspecific T wave abnormality no longer evident in Inferior leads Confirmed by Paul Wayne ([id number]) on 06/21/2022 9:45:02 PM Referred By: REFERRED SELF Confirmed By:Paul Wayne
--- NOTE | 2022-06-21 22:14 | Electrocardiogram Report ---
Test Reason : Blood Pressure : / mmHG Vent. Rate : 095 BPM Atrial Rate : 095 BPM P-R Int : 142 ms QRS Dur : 074 ms QT Int : 312 ms P-R-T Axes : 076 073 094 degrees QTc Int : 392 ms Poor data quality, interpretation may be adversely affected Sinus rhythm with frequent Premature ventricular complexes in a pattern of bigeminy Otherwise normal ECG When compared with ECG of 20-JUN-2022 10:55, (unconfirmed) Criteria for Septal infarct are no longer Present Confirmed by Paul Wayne ([id number]) on 06/21/2022 10:14:05 PM Referred By: REFERRED SELF Confirmed By:Paul Wayne
[2022-06-22] MEDS: guaiFENesin 200 MG TAB PO SCH ×5 (00:18→23:21)
[2022-06-22] MEDS: PIPERACILLIN/TAZOBACTAM 3.375 GM in DEXTROSE 5% 100 ML IV SCH ×3 (01:43→18:12)
[2022-06-22] MEDS: PANTOprazole 40 MG TAB PO SCH (05:47)
[2022-06-22] MEDS: LEVALBUTEROL 1.25MG/0.5ML NEB INH SCH ×2 (07:06→19:18)
[2022-06-22] MEDS: IPRATROPIUM BROMIDE NEB SOLN 0.02% 2.5 ML VIAL INH SCH ×2 (07:06→19:18)
[2022-06-22] MEDS: ROFLUMILAST 500 MCG TAB PO SCH (08:41)
[2022-06-22] MEDS: THIAMINE HCL 100 MG TAB PO SCH (08:41)
[2022-06-22] MEDS: predniSONE 20 MG TAB PO SCH (08:42)
[2022-06-22] MEDS: POTASSIUM CHLORIDE CRTAB 20 MEQ TABCR PO SCH (08:43)
[2022-06-22] MEDS: FOLIC ACID 1 MG TAB PO SCH (08:43)
[2022-06-22] MEDS: MULTIVITAMIN TAB PO SCH (08:43)
[2022-06-22] MEDS: FLUTICASONE/VILANTEROL 200/25MCG 14 PUFFS/INHALER INH SCH (08:43)
[2022-06-22 09:02] LABS: Hematocrit (blood only) 29.5 % (40.1-51.0); Hemoglobin 9.9 g/dl (14.0-18.0); Mean Corpuscular Hemoglobin 30.6 pg (25.0-34.0); Mean Corpuscular Hgb Conc 33.6 g/dL (32.0-36.0); Mean Platelet Volume 10.3 fL (9.4-12.4); Platelet Count 279 K/uL (130-400); RDW Coefficient of Variation 14.3 % (11.5-14.5); RDW Standard Deviation 48.1 fL (36.4-46.3); Red Blood Count 3.24 M/uL (4.63-6.08); White Blood Count 15.37 K/ul (4.8-10.8)
[2022-06-22] MEDS: CYANOCOBALAMIN (B-12) 100 MCG TABLET PO SCH (09:24)
[2022-06-22] MEDS: MELATONIN 3 MG TAB PO PRN (20:27)
--- NOTE | 2022-06-23 02:05 | Hospitalist Progress Note ---
Date of Service June 22, 2022 Assessment & Plan (1) Pneumonia: (2) COPD (chronic obstructive pulmonary disease): (3) Dyspnea: Plan: Chronic respiratory failure with hypoxia Present on admission with worsening SOB associated yellowish productive cough CXR showed Left greater than right lower lung airspace opacities compatible with pneumonia and/or aspiration. CTA chest showed no evidence of pulmonary embolism. Pneumonia in the left greater than right lower lungs. Received IV Rocephin and Zithromax in the ER Sputum culture grew gram-negative bacilli Blood culture no growth Currently on IV Zosyn Currently on prednisone 40 mg daily Continue oxygen supplement, neb treatment, guaifenesin, incentive spirometry, flutter valve, Advair, Daliresp Clinically improved Diarrhea Possible related to Daliresp Stool for C. difficile negative diarrhea improved Anemia Hgb improved to 9.9 ( Possible due to IVF dilution) Continue monitor CBC History of Alcohol abuse Pt denies any history of DT of alcohol withdrawal Last used of alcohol about 6 days ago where he had 2 beers No sign of alcohol withdrawal or DT Continue monitor closely for sign of Alcohol withdrawal and DT Severe protein-calorie malnutrition: BMI 16.3 Continue encourage protein intake Nutrition consulted DVT prophylaxis will restart subq heparin / SCD CODE STATUS full code Admission and Anticipated Discharge Date Admission Date: June 20, 2022 Subjective Pt was seen and examined for follow up of SOB Lying in bed with no acute distress Patient said his breathing continues to improve Currently he is on 4 L oxygen nasal cannula ( that his baseline oxygen) Denies any chest pain, palpitation, dizziness and SOB Review of Systems Review of Systems: All systems reviewed & are unremarkable except as noted in Subjective Physical Exam Physical Exam: General- No acute distress Head- atraumatic Eyes- PERRL, EOMI, ENT- oropharynx clear Neck- supple, no JVD Lungs- No wheezing, +diminished breath sound Heart- regular,, no murmur Abdomen- normal bowel sounds, +tenderness Extremities- no calf tenderness Neuro- alert, oriented x 3; PERRL, EOMI; no facial palsy; no dysarthria Skin- warm & dry Results & Data Results & Data ([facility]) Vital Signs (Past 12 Hours) Vital Signs Temp Pulse Pulse Resp BP Pulse Ox O2 Del Method 06/22/22 22:19 36.4 C L 79 20 114/60 98 Nasal Cannula 06/22/22 22:00 82 06/22/22 22:17 Nasal Cannula 06/22/22 19:11 36.7 C 78 20 117/56 L 98 Nasal Cannula 06/22/22 19:19 74 18 98 Nasal Cannula 06/22/22 15:34 36.8 C 77 20 112/58 L 93 Nasal Cannula 06/22/22 14:20 86 O2 Flow Rate 06/22/22 22:19 4 06/22/22 22:00 06/22/22 22:17 4 06/22/22 19:11 4 06/22/22 19:19 4 06/22/22 15:34 3 06/22/22 14:20 (1) Dyspnea Dyspnea type: dyspnea on exertion Qualified Code(s): R06.00 - Dyspnea, uns pecified
[2022-06-23] MEDS: PIPERACILLIN/TAZOBACTAM 3.375 GM in DEXTROSE 5% 100 ML IV SCH ×3 (02:10→17:36)
[2022-06-23] MEDS: IPRATROPIUM BROMIDE NEB SOLN 0.02% 2.5 ML VIAL INH SCH ×2 (05:16→19:22)
[2022-06-23] MEDS: LEVALBUTEROL 1.25MG/0.5ML NEB INH SCH ×2 (05:16→19:22)
[2022-06-23] MEDS: PANTOprazole 40 MG TAB PO SCH (05:26)
[2022-06-23] MEDS: FOLIC ACID 1 MG TAB PO SCH (10:12)
[2022-06-23] MEDS: HEPARIN SOD 5,000 UNIT/0.5 ML VIAL SQ SCH ×2 (10:12→19:42)
[2022-06-23] MEDS: guaiFENesin 200 MG TAB PO SCH ×3 (10:12→19:42)
[2022-06-23] MEDS: CYANOCOBALAMIN (B-12) 100 MCG TABLET PO SCH (10:12)
[2022-06-23] MEDS: FLUTICASONE/VILANTEROL 200/25MCG 14 PUFFS/INHALER INH SCH (10:13)
[2022-06-23] MEDS: MULTIVITAMIN TAB PO SCH (10:13)
[2022-06-23] MEDS: predniSONE 20 MG TAB PO SCH (10:14)
[2022-06-23] MEDS: POTASSIUM CHLORIDE CRTAB 20 MEQ TABCR PO SCH (10:15)
[2022-06-23] MEDS: ROFLUMILAST 500 MCG TAB PO SCH (10:15)
[2022-06-23] MEDS: THIAMINE HCL 100 MG TAB PO SCH (10:15)
[2022-06-23] MEDS ORDERED: Nursing to Pharmacy Communication SCH (12:15)
[2022-06-23] MEDS: oxyCODONE HCL IR 5 MG TAB (IMMEDIATE RELEASE) PO PRN (16:45)
--- NOTE | 2022-06-23 18:32 | Hospitalist Progress Note ---
Date of Service June 23, 2022 Assessment & Plan (1) Pneumonia: (2) COPD (chronic obstructive pulmonary disease): (3) Dyspnea: Plan: Chronic respiratory failure with hypoxia Present on admission with worsening SOB associated yellowish productive cough CXR showed Left greater than right lower lung airspace opacities compatible with pneumonia and/or aspiration. CTA chest showed no evidence of pulmonary embolism. Pneumonia in the left greater than right lower lungs. Received IV Rocephin and Zithromax in the ER Sputum culture grew gram-negative bacilli Blood culture no growth Currently on IV Zosyn, will transition to oral antibiotic with cipto or levaquin Currently on prednisone 40 mg daily, will taper to 20mg Continue oxygen supplement, neb treatment, guaifenesin, incentive spirometry, flutter valve, Advair, Daliresp Clinically improved Diarrhea Possible related to Daliresp Stool for C. difficile negative diarrhea improved Anemia Hgb improved to 9.9 ( Possible due to IVF dilution) Continue monitor CBC History of Alcohol abuse Pt denies any history of DT of alcohol withdrawal Last used of alcohol about 6 days ago where he had 2 beers No sign of alcohol withdrawal or DT Continue monitor closely for sign of Alcohol withdrawal and DT Severe protein-calorie malnutrition: BMI 16.5 Continue encourage protein intake Nutrition consulted DVT prophylaxis on subq heparin / SCD CODE STATUS full code Disposition PT / OT eval Tentative discharge tomorrow if medically stable Admission and Anticipated Discharge Date Admission Date: June 20, 2022 Subjective Pt was seen and examined for follow up of SOB Lying in bed with no acute distress Patient said his breathing continues to improve He said that he feels weak Currently he is on 2 L oxygen nasal cannula (he said that he used 2L NC oxygen at baseline) Denies any chest pain, palpitation, dizziness and SOB Review of Systems Review of Systems: All systems reviewed & are unremarkable except as noted in Subjective Physical Exam Physical Exam: General- No acute distress Head- atraumatic Eyes- PERRL, EOMI, ENT- oropharynx clear Neck- supple, no JVD Lungs- No wheezing, +diminished breath sound Heart- regular,, no murmur Abdomen- normal bowel sounds, +tenderness Extremities- no calf tenderness Neuro- alert, oriented x 3; PERRL, EOMI; no facial palsy; no dysarthria Skin- warm & dry Results & Data Results & Data ([facility]) Vital Signs (Past 12 Hours) Vital Signs Temp Pulse Pulse Resp BP Pulse Ox O2 Del Method 06/23/22 16:54 90 06/23/22 15:34 36.7 C 45 L 20 101/54 L 96 Nasal Cannula 06/23/22 09:45 Nasal Cannula 06/23/22 11:24 36.5 C 95 H 20 119/56 L 93 Nasal Cannula 06/23/22 07:47 36.5 C 89 20 121/66 96 Nasal Cannula 06/23/22 07:30 79 O2 Flow Rate 06/23/22 16:54 06/23/22 15:34 2 06/23/22 09:45 4 06/23/22 11:24 4 06/23/22 07:47 4 06/23/22 07:30 (1) Dyspnea Dyspnea type: dyspnea on exertion Qualified Code(s): R06.00 - Dyspnea, unspecified
[2022-06-23] MEDS: MELATONIN 3 MG TAB PO PRN (19:42)
[2022-06-24] MEDS: PIPERACILLIN/TAZOBACTAM 3.375 GM in DEXTROSE 5% 100 ML IV SCH ×2 (02:38→09:27)
[2022-06-24] MEDS: PANTOprazole 40 MG TAB PO SCH (06:02)
[2022-06-24] MEDS: guaiFENesin 200 MG TAB PO SCH ×4 (06:03→21:39)
[2022-06-24] MEDS: IPRATROPIUM BROMIDE NEB SOLN 0.02% 2.5 ML VIAL INH SCH ×2 (07:00→19:25)
[2022-06-24] MEDS: LEVALBUTEROL 1.25MG/0.5ML NEB INH SCH ×2 (07:00→19:25)
[2022-06-24 07:51] LABS: Hematocrit (blood only) 27.5 % (40.1-51.0); Mean Corpuscular Hemoglobin 30.3 pg (25.0-34.0); Mean Corpuscular Hgb Conc 32.7 g/dL (32.0-36.0); Mean Corpuscular Volume 92.6 fL (80.0-100.0); Mean Platelet Volume 10.4 fL (9.4-12.4); Platelet Count 320 K/uL (130-400); RDW Coefficient of Variation 14.6 % (11.5-14.5); RDW Standard Deviation 49.4 fL (36.4-46.3); Red Blood Count 2.97 M/uL (4.63-6.08); White Blood Count 10.03 K/ul (4.8-10.8)
[2022-06-24 08:34] LABS: Calcium 8.4 mg/dl (8.5-10.1); Potassium 3.4 mmol/L (3.5-5.1)
[2022-06-24] MEDS: FLUTICASONE/VILANTEROL 200/25MCG 14 PUFFS/INHALER INH SCH (08:34)
[2022-06-24] MEDS: HEPARIN SOD 5,000 UNIT/0.5 ML VIAL SQ SCH ×2 (08:35→21:40)
[2022-06-24] MEDS: FOLIC ACID 1 MG TAB PO SCH (08:35)
[2022-06-24] MEDS: CYANOCOBALAMIN (B-12) 100 MCG TABLET PO SCH (08:35)
[2022-06-24] MEDS: predniSONE 20 MG TAB PO SCH (08:35)
[2022-06-24] MEDS: THIAMINE HCL 100 MG TAB PO SCH (08:35)
[2022-06-24] MEDS: MULTIVITAMIN TAB PO SCH (08:35)
[2022-06-24] MEDS: POTASSIUM CHLORIDE CRTAB 20 MEQ TABCR PO SCH (08:36)
[2022-06-24] MEDS: ROFLUMILAST 500 MCG TAB PO SCH (08:36)
[2022-06-24 08:39] LABS: BUN Creatinine Ratio 34.6 (10-20); Creatinine Clr Calc Pharmacy 54.4 ml/min; Est GFR (African American) 99.5 ml/min; Est GFR (Non-African American) 85.9 ml/min
[2022-06-24] MEDS: levoFLOXacin 750 MG TAB PO SCH (14:17)
--- NOTE | 2022-06-24 15:40 | Hospitalist Progress Note ---
Date of Service June 24, 2022 Assessment & Plan (1) Pneumonia: (2) COPD (chronic obstructive pulmonary disease): (3) Dyspnea: Plan: Chronic respiratory failure with hypoxia Present on admission with worsening SOB associated yellowish productive cough CXR showed Left greater than right lower lung airspace opacities compatible with pneumonia and/or aspiration. CTA chest showed no evidence of pulmonary embolism. Pneumonia in the left greater than right lower lungs. Received IV Rocephin and Zithromax in the ER Sputum culture grew Pseudomonas Blood culture no growth Received IV Zosyn; transition to p.o. Levaquin. Prednisone initially on 40 mg; decreased to 20 mg. Continue oxygen supplement, neb treatment, guaifenesin, incentive spirometry, flutter valve, Advair, Daliresp, hypertonic saline Diarrhea Possible related to Daliresp Stool for C. difficile negative diarrhea improved Anemia Hgb improved to 9.9 ( Possible due to IVF dilution) Continue monitor CBC History of Alcohol abuse Pt denies any history of DT of alcohol withdrawal Last used of alcohol about 6 days ago where he had 2 beers No sign of alcohol withdrawal or DT Continue monitor closely for sign of Alcohol withdrawal and DT Severe protein-calorie malnutrition: BMI 16.5 Continue encourage protein intake Nutrition consulted DVT prophylaxis on subq heparin / SCD CODE STATUS full code Disposition PT OT evaluation pending. Admission and Anticipated Discharge Date Admission Date: June 20, 2022 Subjective Patient seen and examined at bedside. He is at baseline oxygen requirement; reports feeling weak. Continues to complain of pleuritic chest pain on left side. Review of Systems Review of Systems: All systems reviewed & are unremarkable except as noted in Subjective Physical Exam Physical Exam: General- No acute distress Head- atraumatic Eyes- PERRL, EOMI, ENT- oropharynx clear Neck- supple, no JVD Lungs- No wheezing, +diminished breath sound on left lower base. Heart- regular,, no murmur Abdomen- normal bowel sounds, +tenderness Extremities- no calf tenderness Neuro- alert, oriented x 3; PERRL, EOMI; no facial palsy; no dysarthria Skin- warm & dry Results & Data Results & Data ([facility]) Vital Signs (Past 12 Hours) Vital Signs Temp Pulse Pulse Resp BP Pulse Ox O2 Del Method 06/24/22 14:13 67 06/24/22 11:41 36.8 C 80 20 121/72 94 Nasal Cannula 06/24/22 08:44 Nasal Cannula 06/24/22 07:43 36.5 C 76 20 114/56 L 91 Nasal Cannula 06/24/22 05:58 59 L 06/24/22 07:00 71 18 99 Nasal Cannula O2 Flow Rate 06/24/22 14:13 06/24/22 11:41 4 06/24/22 08:44 2 06/24/22 07:43 2 06/24/22 05:58 06/24/22 07:00 2 Laboratory Results Laboratory Results WBC 10.03 K/ul (4.8-10.8) 06/24/22 07:11 RBC 2.97 M/uL (4.63-6.08) L 06/24/22 07:11 Hgb 9.0 g/dl (14.0-18.0) L 06/24/22 07:11 Hct 27.5 % (40.1-51.0) L 06/24/22 07:11 MCV 92.6 fL (80.0-100.0) 06/24/22 07:11 MCH 30.3 pg (25.0-34.0) 06/24/22 07:11 MCHC 32.7 g/dL (32.0-36.0) 06/24/22 07:11 RDW Std Deviation 49.4 fL (36.4-46.3) H 06/24/22 07:11 RDW Coeff of Julissa 14.6 % (11.5-14.5) H 06/24/22 07:11 Plt Count 320 K/uL (130-400) 06/24/22 07:11 MPV 10.4 fL (9.4-12.4) 06/24/22 07:11 Immature Gran % (Auto) 1.3 % 06/20/22 03:00 Neut % (Auto) 77.3 % 06/20/22 03:00 Lymph % (Auto) 15.3 % 06/20/22 03:00 [place] % (Auto) 5.9 % 06/20/22 03:00 Eos % (Auto) 0.0 % 06/20/22 03:00 Baso % (Auto) 0.2 % 06/20/22 03:00 Neut # (Auto) 16.52 K/uL (1.4-6.5) H 06/20/22 03:00 Lymph # (Auto) 3.27 K/uL (1.2-3.4) 06/20/22 03:00 [place] # (Auto) 1.26 K/uL (0.24-0.82) H 06/20/22 03:00 Eos # (Auto) 0.00 K/uL (0-0.50) 06/20/22 03:00 Baso # (Auto) 0.04 K/uL (0-0.2) 06/20/22 03:00 Immature Gran # (Auto) 0.27 K/uL (0.00-0.02) H 06/20/22 03:00 PT 10.9 Seconds (9.0-12.0) 06/20/22 03:00 INR 1.0 (0.9-1.1) 06/20/22 03:00 APTT 28.4 Seconds (21.0-31.0) 06/20/22 03:00 PTT Ratio 1.0 06/20/22 03:00 ABG pH 7.45 (7.35-7.45) 06/20/22 20:13 ABG pCO2 31 mmHg (35-46) L 06/20/22 20:13 ABG pO2 81 mmHg (80-95) 06/20/22 20:13 ABG HCO3 22 mmol/L (19-24) 06/20/22 20:13 ABG O2 Saturation 98.2 % (90-95) H 06/20/22 20:13 ABG Base Excess -1.6 mEq/L (-9-1.8) 06/20/22 20:13 Feliberto Test Pos (Pos) 06/20/22 20:13 Oxygen Given 4 06/20/22 20:13 Sodium 140 mmol/L (136-145) 06/24/22 07:11 Potassium 3.4 mmol/L (3.5-5.1) L 06/24/22 07:11 Chloride 113 mmol/L (98-107) H 06/24/22 07:11 Carbon Dioxide 27 mmol/L (21-32) 06/24/22 07:11 Anion Gap 0 (3-11) L 06/24/22 07:11 BUN 27 mg/dl (6-23) H 06/24/22 07:11 Creatinine 0.78 mg/dl (0.6-1.4) 06/24/22 07:11 Est Cr Clr Drug Dosing 54.4 ml/min 06/24/22 07:11 Est GFR ( Amer) 99.5 ml/min 06/24/22 07:11 Est GFR (Non-Af Amer) 85.9 ml/min 06/24/22 07:11 BUN/Creatinine Ratio 34.6 (10-20) H 06/24/22 07:11 Glucose 105 mg/dl (70-99(Fasting)) H 06/24/22 07:11 POC Glucose 132 mg/dl (70-99) H 06/20/22 19:44 Lactate 1.0 mmol/L (0.4-2.0) 06/20/22 20:13 Calcium 8.4 mg/dl (8.5-10.1) L 06/24/22 07:11 Magnesium 1.7 mg/dl (1.7-2.4) 06/20/22 03:00 Total Bilirubin 0.7 mg/dl (0.2-1.0) 06/20/22 03:00 AST 14 U/L (13-39) 06/20/22 03:00 ALT 8 U/L (7-52) 06/20/22 03:00 Alkaline Phosphatase 116 U/L (34-104) H 06/20/22 03:00 Troponin I High Sens 19.4 pg/ml (0-20) D 06/20/22 10:52 Total Protein 7.9 gm/dl (6.0-8.3) 06/20/22 03:00 Albumin 3.8 gm/dl (3.4-5.0) 06/20/22 03:00 Globulin 4.1 gm/dl (2.5-4.0) H 06/20/22 03:00 Albumin/Globulin Ratio 0.9 (0.9-2) 06/20/22 03:00 TSH 1.306 uIu/ml (0.300-4.500) 06/20/22 20:13 Stl C. diff Tox B Gene Negative Cdiff Gene (Neg) 06/21/22 22:50 SARS-CoV-2 (PCR) NEGATIVE (Negative) 06/20/22 03:00 Influenza Type A (PCR) Negative (Neg) 06/20/22 03:00 Influenza Type B (PCR) Negative (Neg) 06/20/22 03:00 RSV (RT-PCR) Negative (Neg) 06/20/22 03:00 Impressions Chest CTA 06/20/22 04:53 CT angio chest PE protocol CLINICAL HISTORY: PE TECHNIQUE: Multidetector row helical CT of the chest was performed with angio graphic protocol. Coronal and sagittal reformations were obtained. Coronal and sagittal MIPS were obtained from the axial data set and were submitted for review. Automated dose lowering techniques and/or adjustment according to patient size were utilized for this exam. CT DOSE: 286.63 mGy.cm Comparison: Comparison is made to CT chest 04/16/2021 FINDINGS: Lungs and pleura: Extensive emphysematous changes are seen and there is bronchial wall thickening again noted. There is consolidative opacity in the left greater than right lower lungs. Heart and pericardium: Heart size is normal. No pericardial effusion. Vessels: Evaluation for pulmonary embolism is limited due to patient motion. No evidence of central, lobar, or segmental embolus. Mediastinum and sergio: Subcentimeter lymph nodes are seen. Chest wall and lower neck: Unremarkable. Abdomen: A hiatal hernia is seen. Bones: Degenerative changes in the thoracic spine. T7 compression deformity is noted. This is unchanged from prior exam. IMPRESSION: 1. No evidence of pulmonary embolism. 2. Pneumonia in the left greater than right lower lungs. ACT 112: Negative or not required by law. Electronically signed by: Jose Miguel Jiménez M.D. 06/20/2022 7:06 AM Chest X-Ray 06/20/22 19:44 XR chest 1V portable CLINICAL HISTORY: low o2 TECHNIQUE: Single frontal radiograph of the chest was obtained. Comparison: Comparison is made to chest radiograph 06/20/2022 FINDINGS: No lines and tubes are seen. The cardiomediastinal silhouette is normal. Reticular interstitial opacities are seen. Airspace opacity is seen in the left lower lung. No evidence of pleural effusion or pneumothorax. IMPRESSION: Findings are compatible with continued pneumonia in the left lower lobe. Right lower lung airspace opacities are somewhat less spiculated on current exam and may represent improved atelectasis ACT 112: Negative or not required by law. Electronically signed by: Jose Miguel Jiménez M.D. 06/20/2022 8:47 PM (1) Dyspnea Dyspnea type: dyspnea on exertion Qualified Code(s): R06.00 - Dyspnea, unspecified
[2022-06-24] MEDS ORDERED: POTASSIUM CHLORIDE CRTAB 20 MEQ TABCR PO STA (17:10)
[2022-06-24] MEDS: SODIUM CHLOR 7% 4 ML NEB NEB SCH (19:25)
[2022-06-24] MEDS: MELATONIN 3 MG TAB PO PRN (21:39)
[2022-06-24] MEDS: ACETAMINOPHEN 500 MG TAB PO PRN (21:39)
[2022-06-25] MEDS: guaiFENesin 200 MG TAB PO SCH ×4 (05:10→21:34)
[2022-06-25] MEDS: PANTOprazole 40 MG TAB PO SCH (05:56)
[2022-06-25] MEDS: IPRATROPIUM BROMIDE NEB SOLN 0.02% 2.5 ML VIAL INH SCH ×2 (07:12→19:59)
[2022-06-25] MEDS: LEVALBUTEROL 1.25MG/0.5ML NEB INH SCH ×2 (07:12→19:59)
[2022-06-25] MEDS: SODIUM CHLOR 7% 4 ML NEB NEB SCH ×2 (07:12→19:59)
[2022-06-25 07:22] LABS: Basophils # (auto) 0.02 K/uL (0-0.2); Basophils % (auto) 0.2 %; Eosinophils # (auto) 0.02 K/uL (0-0.50); Eosinophils % (auto) 0.2 %; Hematocrit (blood only) 29.9 % (40.1-51.0); Hemoglobin 9.7 g/dl (14.0-18.0); Immature Granulocytes # (auto) 0.12 K/uL (0.00-0.02); Immature Granulocytes % (auto) 1.2 %; Lymphocytes # (auto) 1.65 K/uL (1.2-3.4); Mean Corpuscular Hgb Conc 32.4 g/dL (32.0-36.0); Mean Corpuscular Volume 92.6 fL (80.0-100.0); Mean Platelet Volume 10.1 fL (9.4-12.4); Monocytes # (auto) 0.77 K/uL (0.24-0.82); Monocytes % (auto) 7.5 %; Neutrophils # (auto) 7.75 K/uL (1.4-6.5); Neutrophils % (auto) 74.9 %; Platelet Count 400 K/uL (130-400); RDW Coefficient of Variation 14.8 % (11.5-14.5); RDW Standard Deviation 50.3 fL (36.4-46.3); Red Blood Count 3.23 M/uL (4.63-6.08); White Blood Count 10.33 K/ul (4.8-10.8)
[2022-06-25 07:49] LABS: Albumin Level 2.7 gm/dl (3.4-5.0); Bilirubin,Total 0.3 mg/dl (0.2-1.0); Calcium 8.4 mg/dl (8.5-10.1); Potassium 3.9 mmol/L (3.5-5.1)
[2022-06-25 07:55] LABS: Albumin Globulin Ratio 0.9 (0.9-2); BUN Creatinine Ratio 31.1 (10-20); Creatinine Clr Calc Pharmacy 59.8 ml/min; Est GFR (African American) 101.7 ml/min; Est GFR (Non-African American) 87.7 ml/min; Globulin 2.9 gm/dl (2.5-4.0); Total Protein 5.6 gm/dl (6.0-8.3)
[2022-06-25] MEDS: FLUTICASONE/VILANTEROL 200/25MCG 14 PUFFS/INHALER INH SCH (08:18)
[2022-06-25] MEDS: predniSONE 20 MG TAB PO SCH (08:19)
[2022-06-25] MEDS: CYANOCOBALAMIN (B-12) 100 MCG TABLET PO SCH (08:19)
[2022-06-25] MEDS: THIAMINE HCL 100 MG TAB PO SCH (08:19)
[2022-06-25] MEDS: HEPARIN SOD 5,000 UNIT/0.5 ML VIAL SQ SCH ×2 (08:19→21:37)
[2022-06-25] MEDS: ROFLUMILAST 500 MCG TAB PO SCH (08:19)
[2022-06-25] MEDS: MULTIVITAMIN TAB PO SCH (08:19)
[2022-06-25] MEDS: POTASSIUM CHLORIDE CRTAB 20 MEQ TABCR PO SCH (08:19)
[2022-06-25] MEDS: FOLIC ACID 1 MG TAB PO SCH (08:20)
--- NOTE | 2022-06-25 12:20 | Hospitalist Progress Note ---
Date of Service June 25, 2022 Assessment & Plan (1) Pneumonia: (2) COPD (chronic obstructive pulmonary disease): (3) Dyspnea: Plan: Chronic respiratory failure with hypoxia Committee acquired pneumonia Present on admission with worsening SOB associated yellowish productive cough CXR showed Left greater than right lower lung airspace opacities compatible with pneumonia and/or aspiration. CTA chest showed no evidence of pulmonary embolism. Pneumonia in the left greater than right lower lungs. Received IV Rocephin and Zithromax in the ER Sputum culture grew Pseudomonas Blood culture no growth Received IV Zosyn; transition to p.o. Levaquin. Prednisone initially on 40 mg; decreased to 20 mg for 2 more days Continue oxygen supplement, neb treatment, guaifenesin, incentive spirometry, flutter valve, Advair, Daliresp, hypertonic saline Diarrhea Possible related to Daliresp Stool for C. difficile negative diarrhea improved Anemia Hgb improved to 9.9 ( Possible due to IVF dilution) Continue monitor CBC History of Alcohol abuse Pt denies any history of DT of alcohol withdrawal Last used of alcohol about 6 days ago where he had 2 beers No sign of alcohol withdrawal or DT Continue monitor closely for sign of Alcohol withdrawal and DT Severe protein-calorie malnutrition: BMI 16.5 Continue encourage protein intake Nutrition consulted DVT prophylaxis on subq heparin / SCD CODE STATUS full code Disposition OT evaluation done; recommend home. PT eval pending. Case management on board. Admission and Anticipated Discharge Date Admission Date: June 20, 2022 Subjective Patient seen and examined at bedside. He reports he continues to feel weak. He is expectorating increased amount of yellow sputum with pulmonary toileting. Continues to complain of pleuritic chest pain on left side. Review of Systems Review of Systems: All systems reviewed & are unremarkable except as noted in Subjective Physical Exam Physical Exam: General- No acute distress Head- atraumatic Eyes- PERRL, EOMI, ENT- oropharynx clear Neck- supple, no JVD Lungs- No wheezing, +diminished breath sound on left lower base. Crackles present Heart- regular,, no murmur Abdomen- normal bowel sounds, nontender Extremities- no calf tenderness Neuro- alert, oriented x 3; PERRL, EOMI; no facial palsy; no dysarthria Skin- warm & dry Results & Data Results & Data ([facility]) Vital Signs (Past 12 Hours) Vital Signs Temp Pulse Pulse Resp BP Pulse Ox O2 Del Method 06/25/22 11:06 36.8 C 73 20 125/60 100 Nasal Cannula 06/25/22 10:50 100 06/25/22 07:33 63 06/25/22 07:23 36.5 C 74 18 143/65 H 98 Nasal Cannula 06/25/22 07:12 74 16 97 Nasal Cannula 06/25/22 03:33 36.5 C 69 18 145/77 H 97 Nasal Cannula 06/25/22 01:50 72 O2 Flow Rate 06/25/22 11:06 4 06/25/22 10:50 06/25/22 07:33 06/25/22 07:23 2 06/25/22 07:12 2 06/25/22 03:33 2 06/25/22 01:50 Laboratory Results Laboratory Results WBC 10.33 K/ul (4.8-10.8) 06/25/22 06:13 RBC 3.23 M/uL (4.63-6.08) L 06/25/22 06:13 Hgb 9.7 g/dl (14.0-18.0) L 06/25/22 06:13 Hct 29.9 % (40.1-51.0) L 06/25/22 06:13 MCV 92.6 fL (80.0-100.0) 06/25/22 06:13 MCH 30.0 pg (25.0-34.0) 06/25/22 06:13 MCHC 32.4 g/dL (32.0-36.0) 06/25/22 06:13 RDW Std Deviation 50.3 fL (36.4-46.3) H 06/25/22 06:13 RDW Coeff of Julissa 14.8 % (11.5-14.5) H 06/25/22 06:13 Plt Count 400 K/uL (130-400) 06/25/22 06:13 MPV 10.1 fL (9.4-12.4) 06/25/22 06:13 Immature Gran % (Auto) 1.2 % 06/25/22 06:13 Neut % (Auto) 74.9 % 06/25/22 06:13 Lymph % (Auto) 16.0 % 06/25/22 06:13 [place] % (Auto) 7.5 % 06/25/22 06:13 Eos % (Auto) 0.2 % 06/25/22 06:13 Baso % (Auto) 0.2 % 06/25/22 06:13 Neut # (Auto) 7.75 K/uL (1.4-6.5) H 06/25/22 06:13 Lymph # (Auto) 1.65 K/uL (1.2-3.4) 06/25/22 06:13 [place] # (Auto) 0.77 K/uL (0.24-0.82) 06/25/22 06:13 Eos # (Auto) 0.02 K/uL (0-0.50) 06/25/22 06:13 Baso # (Auto) 0.02 K/uL (0-0.2) 06/25/22 06:13 Immature Gran # (Auto) 0.12 K/uL (0.00-0.02) H 06/25/22 06:13 PT 10.9 Seconds (9.0-12.0) 06/20/22 03:00 INR 1.0 (0.9-1.1) 06/20/22 03:00 APTT 28.4 Seconds (21.0-31.0) 06/20/22 03:00 PTT Ratio 1.0 06/20/22 03:00 ABG pH 7.45 (7.35-7.45) 06/20/22 20:13 ABG pCO2 31 mmHg (35-46) L 06/20/22 20:13 ABG pO2 81 mmHg (80-95) 06/20/22 20:13 ABG HCO3 22 mmol/L (19-24) 06/20/22 20:13 ABG O2 Saturation 98.2 % (90-95) H 06/20/22 20:13 ABG Base Excess -1.6 mEq/L (-9-1.8) 06/20/22 20:13 Feliberto Test Pos (Pos) 06/20/22 20:13 Oxygen Given 4 06/20/22 20:13 Sodium 144 mmol/L (136-145) 06/25/22 06:13 Potassium 3.9 mmol/L (3.5-5.1) 06/25/22 06:13 Chloride 113 mmol/L (98-107) H 06/25/22 06:13 Carbon Dioxide 24 mmol/L (21-32) 06/25/22 06:13 Anion Gap 7 (3-11) 06/25/22 06:13 BUN 23 mg/dl (6-23) 06/25/22 06:13 Creatinine 0.74 mg/dl (0.6-1.4) 06/25/22 06:13 Est Cr Clr Drug Dosing 59.8 ml/min 06/25/22 06:13 Est GFR ( Amer) 101.7 ml/min 06/25/22 06:13 Est GFR (Non-Af Amer) 87.7 ml/min 06/25/22 06:13 BUN/Creatinine Ratio 31.1 (10-20) H 06/25/22 06:13 Glucose 99 mg/dl (70-99(Fasting)) 06/25/22 06:13 POC Glucose 114 mg/dl (70-99) H 06/25/22 07:48 Lactate 1.0 mmol/L (0.4-2.0) 06/20/22 20:13 Calcium 8.4 mg/dl (8.5-10.1) L 06/25/22 06:13 Magnesium 1.7 mg/dl (1.7-2.4) 06/20/22 03:00 Total Bilirubin 0.3 mg/dl (0.2-1.0) 06/25/22 06:13 AST 27 U/L (13-39) 06/25/22 06:13 ALT 41 U/L (7-52) 06/25/22 06:13 Alkaline Phosphatase 113 U/L (34-104) H 06/25/22 06:13 Troponin I High Sens 19.4 pg/ml (0-20) D 06/20/22 10:52 Total Protein 5.6 gm/dl (6.0-8.3) L 06/25/22 06:13 Albumin 2.7 gm/dl (3.4-5.0) L 06/25/22 06:13 Globulin 2.9 gm/dl (2.5-4.0) 06/25/22 06:13 Albumin/Globulin Ratio 0.9 (0.9-2) 06/25/22 06:13 TSH 1.306 uIu/ml (0.300-4.500) 06/20/22 20:13 Stl C. diff Tox B Gene Negative Cdiff Gene (Neg) 06/21/22 22:50 SARS-CoV-2 (PCR) NEGATIVE (Negative) 06/20/22 03:00 Influenza Type A (PCR) Negative (Neg) 06/20/22 03:00 Influenza Type B (PCR) Negative (Neg) 06/20/22 03:00 RSV (RT-PCR) Negative (Neg) 06/20/22 03:00 Impressions Chest CTA 06/20/22 04:53 CT angio chest PE protocol CLINICAL HISTORY: PE TECHNIQUE: Multidetector row helical CT of the chest was performed with angiographic protocol. Coronal and sagittal reformations were obtained. Coronal and sagittal MIPS were obtained from the axial data set and were submitted for review. Automated dose lowering techniques and/or adjustment according to patient size were utilized for this exam. CT DOSE: 286.63 mGy.cm Comparison: Comparison is made to CT chest 04/16/2021 FINDINGS: Lungs and pleura: Extensive emphysematous changes are seen and there is bronchial wall thickening again noted. There is consolidative opacity in the left greater than right lower lungs. Heart and pericardium: Heart size is normal. No pericardial effusion. Vessels: Evaluation for pulmonary embolism is limited due to patient motion. No evidence of central, lobar, or segmental embolus. Mediastinum and sergio: Subcentimeter lymph nodes are seen. Chest wall and lower neck: Unremarkable. Abdomen: A hiatal hernia is seen. Bones: Degenerative changes in the thoracic spine. T7 compression deformity is noted. This is unchanged from prior exam. IMPRESSION: 1. No evidence of pulmonary embolism. 2. Pneumonia in the left greater than right lower lungs. ACT 112: Negative or not required by law. Electronically signed by: Jose Miguel Jiménez M.D. 06/20/2022 7:06 AM Chest X-Ray 06/20/22 19:44 XR chest 1V portable CLINICAL HISTORY: low o2 TECHNIQUE: Single frontal radiograph of the chest was obtained. Comparison: Comparison is made to chest radiograph 06/20/2022 FINDINGS: No lines and tubes are seen. The cardiomediastinal silhouette is normal. Reticular interstitial opacities are seen. Airspace opacity is seen in the left lower lung. No evidence of pleural effusion or pneumothorax. IMPRESSION: Findings are compatible with continued pneumonia in the left lower lobe. Right lower lung airspace opacities are somewhat less spiculated on current exam and may represent improved atelectasis ACT 112: Negative or not required by law. Electronically signed by: Jose Miguel Jiménez M.D. 06/20/2022 8:47 PM (1) Dyspnea Dyspnea type: dyspnea on exertion Qualified Code(s): R06.00 - Dyspnea, unspecified
[2022-06-25] MEDS: levoFLOXacin 750 MG TAB PO SCH (15:00)
[2022-06-25] MEDS: ACETAMINOPHEN 500 MG TAB PO PRN (21:34)
[2022-06-25] MEDS: MELATONIN 3 MG TAB PO PRN (21:34)
[2022-06-26] MEDS: guaiFENesin 200 MG TAB PO SCH ×2 (03:11→10:44)
[2022-06-26] MEDS: PANTOprazole 40 MG TAB PO SCH (06:12)
[2022-06-26] MEDS: LEVALBUTEROL 1.25MG/0.5ML NEB INH SCH (07:08)
[2022-06-26] MEDS: IPRATROPIUM BROMIDE NEB SOLN 0.02% 2.5 ML VIAL INH SCH (07:09)
[2022-06-26] MEDS: SODIUM CHLOR 7% 4 ML NEB NEB SCH (07:27)
[2022-06-26] MEDS: HEPARIN SOD 5,000 UNIT/0.5 ML VIAL SQ SCH (08:27)
[2022-06-26] MEDS: POTASSIUM CHLORIDE CRTAB 20 MEQ TABCR PO SCH (08:27)
[2022-06-26] MEDS: THIAMINE HCL 100 MG TAB PO SCH (08:27)
[2022-06-26] MEDS: CYANOCOBALAMIN (B-12) 100 MCG TABLET PO SCH (08:28)
[2022-06-26] MEDS: FLUTICASONE/VILANTEROL 200/25MCG 14 PUFFS/INHALER INH SCH (08:28)
[2022-06-26] MEDS: FOLIC ACID 1 MG TAB PO SCH (08:28)
[2022-06-26] MEDS: ROFLUMILAST 500 MCG TAB PO SCH (08:28)
[2022-06-26] MEDS: MULTIVITAMIN TAB PO SCH (08:28)
[2022-06-26 08:36] LABS: Basophils # (auto) 0.01 K/uL (0-0.2); Basophils % (auto) 0.1 %; Eosinophils # (auto) 0.08 K/uL (0-0.50); Eosinophils % (auto) 0.9 %; Hematocrit (blood only) 29.6 % (40.1-51.0); Hemoglobin 9.7 g/dl (14.0-18.0); Immature Granulocytes # (auto) 0.11 K/uL (0.00-0.02); Immature Granulocytes % (auto) 1.3 %; Lymphocytes # (auto) 2.26 K/uL (1.2-3.4); Lymphocytes % (auto) 25.7 %; Mean Corpuscular Hemoglobin 29.9 pg (25.0-34.0); Mean Corpuscular Hgb Conc 32.8 g/dL (32.0-36.0); Mean Corpuscular Volume 91.4 fL (80.0-100.0); Mean Platelet Volume 10.1 fL (9.4-12.4); Monocytes # (auto) 0.63 K/uL (0.24-0.82); Monocytes % (auto) 7.2 %; Neutrophils # (auto) 5.71 K/uL (1.4-6.5); Neutrophils % (auto) 64.8 %; Platelet Count 430 K/uL (130-400); RDW Coefficient of Variation 14.9 % (11.5-14.5); RDW Standard Deviation 50.2 fL (36.4-46.3); Red Blood Count 3.24 M/uL (4.63-6.08)
[2022-06-26] MEDS ORDERED: FLUARIX QUADRIVALENT 0.5 ML SYR IM ONE (09:06)
[2022-06-26 09:22] LABS: Calcium 8.6 mg/dl (8.5-10.1); Creatinine Clr Calc Pharmacy 58.3 ml/min; Est GFR (African American) 100.6 ml/min; Est GFR (Non-African American) 86.8 ml/min; Potassium 3.5 mmol/L (3.5-5.1)
[2022-06-26] MEDS: levoFLOXacin 750 MG TAB PO SCH (13:44)
--- NOTE | 2022-06-26 14:21 | Discharge Summary ---
Date of Service June 26, 2022 Admission HPI Per Admitting Provider 80 yo PMH with COPD on chronic oxygen dependent, history of alcohol abuse, Severe protein-calorie malnutrition, chronic anemia present to the ER with SOB associated with productive cough. Pt said that his symptoms started few days ago where he development SOB with minimal exertion. He said that he has been having yellowish productive cough. He said that whenever he coughs that he has tenderness in his chest wall. Pt said that his heat has not been working well at home because his bedroom is very cold in the 30's. he said that he feels weak and poor appetite. Pt said that he has been having recurrent watery diarrhea. He said that he has pain with movement. Pt denies any recent travel or sick contact. Denies any chest pain, palpitation, dizziness and SOB. Admission Exam Per Admitting Provider General- No acute distress Head- atraumatic Eyes- PERRL, EOMI, ENT- oropharynx clear Neck- supple, no JVD Lungs- No wheezing Heart- +tachycardia, no murmur Abdomen- normal bowel sounds, +tenderness Extremities- no calf tenderness Neuro- alert, oriented x 3; PERRL, EOMI; no facial palsy; no dysarthria Skin- warm & dry Principal Diagnosis Gram-negative pneumonia COPD exacerbation. Discharge Exam General- No acute distress Head- atraumatic Eyes- PERRL, EOMI, ENT- oropharynx clear Neck- supple, no JVD Lungs- No wheezing, +diminished breath sound on left lower base. Crackles present Heart- regular,, no murmur Abdomen- normal bowel sounds, nontender Extremities- no calf tenderness Neuro- alert, oriented x 3; PERRL, EOMI; no facial palsy; no dysarthria Skin- warm & dry Discharge Data Allergies Allergy/AdvReac Type Severity Reaction Status Date / Time No Known Allergies Allergy Verified 06/20/22 03:10 Consultations 06/20/22 07:21 ED Decision to Admit Stat Ordered Studies 06/20/22 04:53 CT angio chest PE protocol Stat Hospital Course (1) Pneumonia: (2) COPD (chronic obstructive pulmonary disease): (3) Gram-negative pneumonia: (4) Dyspnea: Plan Patient is a 81-year-old male with past medical history of COPD on 2 to 3 L of oxygen, alcohol abuse presented to the ED with shortness of breath with productive cough. He also had left-sided pleuritic chest pain. Chest x-ray showed left-sided pneumonia. His sputum culture was positive for Pseudomonas. Patient was admitted to the hospital and treated with IV antibiotic, nebulizer treatment, pulmonary toileting. Over the course of the hospitalization, patient showed signs of improvement; he finished course of steroid. He was discharged on 2 more days of Levaquin to finish 7-day course of antibiotic. Patient was at baseline oxygen at discharge. Patient has follow-up set up with primary care doctor as outpatient after the discharge. Total Time Total Time Spent Total Time Spent (In Minutes): 40 Total Time Includes: Examination of the Patient, Discharge Planning, Medication Reconciliation, Communication With Other Providers and Other Discharge Plan Discharge Items Patient Disposition: Home - Self-Care Reason For Visit: SOB Discharge Diagnosis: Community-acquired pneumonia COPD exacerbation Activity: Resume your previous activity Non-emergency contact: Primary Care Provider Call non-emergency contact if: you have any medication questions and your symptoms worsen Follow-up/Referrals: Kavya Dillard CRNP [Primary Care Provider] - (Date & Time 07/02/2022 3:00 PM Provider [facility] ) Diet: Regular Addtl Attending Provider Instructions: You were admitted to the hospital with COPD exacerbation and pneumonia. For COPD exacerbation, you completed course of steroid. He received breathing treatment during her hospitalization. For the pneumonia, please take levofloxacin 750 mg for 2 more days. Please follow-up with your primary care doctor as scheduled. Pending Studies at Discharge: No Stand-Alone Forms: My [facility] [employer], Smoking Cessation Medications and DC Order Prescriptions: New guaifenesin 200 mg Tablet 200 mg PO Q6H PRN (Reason: congestion) 4 Days Qty: 20 0RF levofloxacin 750 mg Tablet 750 mg PO Q24H Qty: 2 0RF Continued Daliresp 500 mcg tablet 500 mcg PO QAM folic acid 1 mg tablet 1 mg PO QAM ProAir RespiClick 90 mcg/actuation aerosol powdr breath activated 2 puffs INH Q4H PRN (Reason: shortness of breath or wheezing) thiamine HCl (vitamin B1) 100 mg tablet 100 mg PO QAM cyanocobalamin (vitamin B-12) 100 mcg tablet 100 mcg PO DAILY fluticasone propion-salmeterol [Advair Diskus] 250-50 mcg/dose Blister With Device 1 inh INHALATION BID omeprazole 40 mg Capsule,Delayed Release(Dr/Ec) 40 mg PO DAILYBB acetaminophen [Tylenol Extra Strength] 500 mg Tablet 500 mg PO Q4H PRN (Reason: Pain) levalbuterol HCl [Xopenex] 1.25 mg/3 mL Solution For Nebulization 1.25 mg INHALATION TID multivitamin with minerals Tablet 1 tab PO DAILY ipratropium bromide 0.02 % Solution 2.5 ml INHALATION TID PRN (Reason: Shortness Of Breath Or Wheezing) potassium chloride 20 mEq Tablet Extended Release 20 meq PO DAILY Combivent Respimat 20-100 mcg/actuation mist 1 puff INHALATION QID famotidine 20 mg tablet 20 mg PO DAILY PRN (Reason: Heartburn) Discontinued vancomycin 125 mg capsule 125 mg PO DAILY Discharge Orders: Discharge Order (Routine); Ordered 06/26/22 Ordered By: Pascual Hastings Admission Data Admit Date/Time: 06/20/22 08:36 Attending Provider: Pascual Hastings Admit Provider: Alice Hood Primary Care Provider: Kavya Dillard Other Providers: Yadiel White Other Interventions: Discharge Summary Assessment (RN) Last Done: 06/26/22 11:31
== END 2022-06-26 14:34 | disposition home or self-care (01) | DRG 177 ==
LOC: ED 02:39 → 2N 08:36 → SUATTDRO 08:36 → 2N 18:12

== ENCOUNTER 2022-07-02 18:32 | Inpatient (IN) ==
[2022-07-02] MEDS ORDERED: MoRPHine SULFATE 4 MG/ML 1 ML CARP\\VIAL IV STA (19:05)
[2022-07-02] MEDS ORDERED: ONDANSETRON INJ 2 MG/ML 2 ML VIAL IV STA (19:05)
[2022-07-02] MEDS ORDERED: ALBUT/IPRATROP 3MG/0.5MG NEB 3 ML VIAL NEB STA (19:05)
[2022-07-02] MEDS ORDERED: methylPREDNISolone 125 MG/2 ML VIAL IV STA (19:06)
--- NOTE | 2022-07-02 19:07 | Emergency Department Note ---
Impression & Plan Pneumonia ADMIT ED Provider Note HPI: The patient is a 81-year-old gentleman with history of COPD, on 3 L nasal cannula oxygen, presents emergency department with a chief complaint of worsening shortness of breath and intermittent left-sided chest discomfort that radiates somewhat to his back. Patient states that he has had the symptoms now throughout the day today. Patient states he was recently treated for pneumonia and his shortness of breath has been a continuum of this. Patient states he is currently on a course of Levaquin. He states that he gets intense pain in the left lower rib area with coughing and at times intermittently when he is at rest. On arrival to the ED the patient is stable on his baseline 3 L nasal cannula oxygen. ROS: - Per HPI *Outpatient medications and allergy history reviewed. *Pertinent external medical records reviewed. 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 Opacities in the lungs most likely representing pneumonia with apparent cavitation in the left lower lobe. Small left pleural effusion. Extensive coronary artery atherosclerotic calcifications. Severe emphysematous change of the lungs. T7 compression deformity appears similar to prior. Radiologist: Stanislav Troy MD Study ready at 21:56 and initial results transmitted at 22:08 Medical Decision Making: Patient presented to the emergency department with a chief complaint of left- sided chest pain and cough. He does have a recent diagnosis of pneumonia, was admitted to the inpatient service earlier this month. On arrival here to the ED the patient is in no obvious distress, he is saturating well on his baseline 3 L nasal cannula oxygen for his history of COPD. 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 On my reassessment patient states he is having discomfort still in the area of the left lower ribs, delta troponin was obtained that is also negative. I suspect his pain is pleuritic in nature related to pneumonia. Patient states he is uncomfortable with discharge home. Case was discussed with the on-call hospitalist, Dr. Vaughan, the patient was placed for admission in stable condition. He was initiated on Zosyn and azithromycin for finding of pneumonia. Patient was in agreement to the above plan he was admitted in stable condition for further care. Disposition discussion held by myself with: Patient Diagnosis: 1. Left lower lung pneumonia 2. Chest pain, acute, nonspecific 3. Anemia, chronic 4. Thrombocytosis, mild 5. COPD exacerbation, mild, on baseline nasal cannula oxygen Disposition: Admission Joni Gonzalez DO Emergency Medicine Past Med/Surg History Medical History Chronic obstructive pulmonary disease Chronic respiratory failure COPD exacerbation Elevated troponin I level Fibrosis of lung GERD with esophagitis History of alcohol abuse History of tobacco use Hypomagnesemia On home oxygen therapy WEARS O2 AT 2L CONT. 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[employer] Required: No Beliefs That Will Affect Care: None marital status: Current Living Situation: Spouse Feels Safe at Home: Yes Assistive Devices: Cane, Glasses, Nebulizer, Oxygen - Continuous, Walker and Wheelchair Allergies Allergies Allergy/AdvReac Type Severity Reaction Status Date / Time No Known Allergies Allergy Verified 07/02/22 19:29 Home Meds Home Medications Medication Instructions Recorded Confirmed albuterol sulfate 90 mcg/actuation 2 puffs inhalation Q4H PRN 04/11/19 07/02/22 breath activated powder inhaler shortness of breath or wheezing (ProAir RespiClick) folic acid 1 mg tablet 1 mg PO QAM 04/11/19 07/02/22 roflumilast 500 mcg tablet 500 mcg PO QAM 04/11/19 07/02/22 (Daliresp) thiamine HCl (vitamin B1) 100 mg 100 mg PO QAM 04/11/19 07/02/22 tablet cyanocobalamin (vitamin B-12) 100 100 mcg PO DAILY 08/23/21 07/02/22 mcg tablet fluticasone 250 mcg-salmeterol 50 1 inh inhalation BID 08/23/21 07/02/22 mcg/dose blistr powdr for inhalation (Advair Diskus) acetaminophen 500 mg tablet 500 mg PO Q4H PRN Pain 09/27/21 07/02/22 (Tylenol Extra Strength) ipratropium bromide 0.02 % 2.5 ml inhalation TID PRN 09/27/21 07/02/22 solution for inhalation Shortness Of Breath Or Wheezing levalbuterol HCl 1.25 mg/3 mL 1.25 mg inhalation TID 09/27/21 07/02/22 solution for nebulization (Xopenex) multivitamin with minerals 1 tab PO DAILY 09/27/21 07/02/22 omeprazole 40 mg capsule,delayed 40 mg PO DAILYBB 09/27/21 07/02/22 release potassium chloride 20 mEq 20 meq PO DAILY 09/27/21 07/02/22 tablet,extended release ipratropium 20 mcg-albuterol 100 1 puff inhalation QID 12/05/21 07/02/22 mcg/actuation mist for inhalation (Combivent Respimat) famotidine 20 mg tablet 20 mg PO DAILY PRN Heartburn 06/20/22 07/02/22 Results & Data (ED) Vital Signs Vital Signs - 24 hr 07/02/22 18:43 07/02/22 18:43 07/02/22 18:47 Temperature 37.3 C Temperature Source Oral Pulse Rate 101 H Pulse Rate [Apical] Respiratory Rate 33 H Respiratory Effort / Characteristics Spontaneous Spontaneous Blood Pressure 124/68 Blood Pressure [Left Arm] Blood Pressure Mean 86 Blood Pressure Mean [Left Arm] Pulse Oximetry 98 Oxygen Delivery Method Nasal Cannula Nasal Cannula Nasal Cannula Oxygen Flow Rate 3 3 3 Sepsis Recent Fever Within 48 Hours No Sepsis New/Unexplained Change in Mental Status N/A Sepsis Action Taken by Nursing No Action Required 07/02/22 18:59 07/02/22 20:43 07/02/22 22:00 Temperature Temperature Source Pulse Rate 96 H Pulse Rate [Apical] 99 H 96 H Respiratory Rate 33 H 17 31 H Respiratory Effort / Characteristics Blood Pressure Blood Pressure [Left Arm] 118/57 L 104/60 Blood Pressure Mean Blood Pressure Mean [Left Arm] 77 74 Pulse Oximetry 99 100 99 Oxygen Delivery Method Nasal Cannula Nasal Cannula Nasal Cannula Oxygen Flow Rate 3 3 3 Sepsis Recent Fever Within 48 Hours Sepsis New/Unexplained Change in Mental Status Sepsis Action Taken by Nursing Laboratory Data 07/02/22 18:40 07/02/22 18:40 Lab Results 07/02/22 07/02/22 07/02/22 Range/Units 18:40 18:40 18:40 WBC 9.69 (4.8-10.8) K/ul RBC 3.61 L (4.70-6.10) M/uL Hgb 10.9 L (14.0-18.0) g/dl Hct 34.3 L (42.0-52.0) % MCV 95.0 (80.0-100.0) fL MCH 30.2 (25.0-34.0) pg MCHC 31.8 L (32.0-36.0) g/dL RDW Std Deviation 49.0 H (36.4-46.3) fL RDW Coeff of Julissa 14.0 (11.5-14.5) % Plt Count 460 H (130-400) K/uL MPV 9.4 (9.4-12.4) fL Immature Gran % (Auto) 0.5 % Neut % (Auto) 66.5 % Lymph % (Auto) 21.7 % Person % (Auto) 9.7 % Eos % (Auto) 1.5 % Baso % (Auto) 0.1 % Neut # (Auto) 6.44 (1.40-6.50) K/uL Lymph # (Auto) 2.10 (1.2-3.4) K/uL Person # (Auto) 0.94 H (0.11-0.59) K/uL Eos # (Auto) 0.15 (0-0.50) K/uL Baso # (Auto) 0.01 (0-0.2) K/uL Immature Gran # (Auto) 0.05 (0.01-0.20) K/uL PT 11.5 (9.0-12.0) Seconds INR 1.1 (0.9-1.1) APTT 28.8 (21.0-31.0) Seconds PTT Ratio 1.0 VBG pH (7.36-7.41) VBG pCO2 (38-50) mmHg VBG pO2 mmHg VBG HCO3 mmol/L VBG O2 Saturation % VBG Base Excess mEq/L Sodium 140 (136-145) mmol/L Potassium 4.0 (3.5-5.1) mmol/L Chloride 105 (98-107) mmol/L Carbon Dioxide 28 (21-32) mmol/L Anion Gap 7 (3-11) BUN 12 (6-23) mg/dl Creatinine 0.98 (0.6-1.4) mg/dl Est Cr Clr Drug Dosing 40.2 ml/min Est GFR ( Amer) 84.6 ml/min Est GFR (Non-Af Amer) 73.0 ml/min BUN/Creatinine Ratio 12.2 (10-20) Glucose 89 (70-99(Fasting)) mg/dl Calcium 8.8 (8.5-10.1) mg/dl Total Bilirubin 0.3 (0.2-1.0) mg/dl AST 11 L (13-39) U/L ALT 10 (7-52) U/L Alkaline Phosphatase 131 H (34-104) U/L Troponin I High Sens 6.9 (0-20) pg/ml B-Natriuretic Peptide (0-100) pg/ml Total Protein 6.6 (6.0-8.3) gm/dl Albumin 3.1 L (3.4-5.0) gm/dl Globulin 3.5 (2.5-4.0) gm/dl Albumin/Globulin Ratio 0.9 (0.9-2) Adenovirus (PCR) (NotDetected) B. pertussis DNA (PCR) (NotDetected) B.parapertussis DNA PCR (NotDetected) C. pneumoniae DNA (PCR) (NotDetected) Coronavirus OC43 (PCR) (NotDetected) Coronavirus HKU1 (PCR) (NotDetected) Coronavirus 229E (PCR) (NotDetected) SARS-CoV-2 (PCR) (NotDetected) Coronavirus NL63 (PCR) (NotDetected) Human Metapneumovir PCR (NotDetected) Influenza Type A (PCR) (NotDetected) Influenza Type B (PCR) (NotDetected) M. pneumoniae (PCR) (NotDetected) Parainfluenza 1 (PCR) (NotDetected) Parainfluenza 2 (PCR) (NotDetected) Parainfluenza 3 (PCR) (NotDetected) Parainfluenza 4 (PCR) (NotDetected) RSV (PCR) (NotDetected) Entero/Rhino (PCR) (NotDetected) 07/02/22 07/02/22 07/02/22 Range/Units 19:34 19:34 19:40 WBC (4.8-10.8) K/ul RBC (4.70-6.10) M/uL Hgb (14.0-18.0) g/dl Hct (42.0-52.0) % MCV (80.0-100.0) fL MCH (25.0-34.0) pg MCHC (32.0-36.0) g/dL RDW Std Deviation (36.4-46.3) fL RDW Coeff of Julissa (11.5-14.5) % Plt Count (130-400) K/uL MPV (9.4-12.4) fL Immature Gran % (Auto) % Neut % (Auto) % Lymph % (Auto) % Person % (Auto) % Eos % (Auto) % Baso % (Auto) % Neut # (Auto) (1.40-6.50) K/uL Lymph # (Auto) (1.2-3.4) K/uL Person # (Auto) (0.11-0.59) K/uL Eos # (Auto) (0-0.50) K/uL Baso # (Auto) (0-0.2) K/uL Immature Gran # (Auto) (0.01-0.20) K/uL PT (9.0-12.0) Seconds INR (0.9-1.1) APTT (21.0-31.0) Seconds PTT Ratio VBG pH 7.36 (7.36-7.41) VBG pCO2 49 (38-50) mmHg VBG pO2 21 mmHg VBG HCO3 28 mmol/L VBG O2 Saturation < 60.0 % VBG Base Excess 1.5 mEq/L Sodium (136-145) mmol/L Potassium (3.5-5.1) mmol/L Chloride (98-107) mmol/L Carbon Dioxide (21-32) mmol/L Anion Gap (3-11) BUN (6-23) mg/dl Creatinine (0.6-1.4) mg/dl Est Cr Clr Drug Dosing ml/min Est GFR ( Amer) ml/min Est GFR (Non-Af Amer) ml/min BUN/Creatinine Ratio (10-20) Glucose (70-99(Fasting)) mg/dl Calcium (8.5-10.1) mg/dl Total Bilirubin (0.2-1.0) mg/dl AST (13-39) U/L ALT (7-52) U/L Alkaline Phosphatase (34-104) U/L Troponin I High Sens (0-20) pg/ml B-Natriuretic Peptide 167 H (0-100) pg/ml Total Protein (6.0-8.3) gm/dl Albumin (3.4-5.0) gm/dl Globulin (2.5-4.0) gm/dl Albumin/Globulin Ratio (0.9-2) Adenovirus (PCR) Not Detected (NotDetected) B. pertussis DNA (PCR) Not Detected (NotDetected) B.parapertussis DNA PCR Not Detected (NotDetected) C. pneumoniae DNA (PCR) Not Detected (NotDetected) Coronavirus OC43 (PCR) Not Detected (NotDetected) Coronavirus HKU1 (PCR) Not Detected (NotDetected) Coronavirus 229E (PCR) Not Detected (NotDetected) SARS-CoV-2 (PCR) Not Detected (NotDetected) Coronavirus NL63 (PCR) Not Detected (NotDetected) Human Metapneumovir PCR Not Detected (NotDetected) Influenza Type A (PCR) Not Detected (NotDetected) Influenza Type B (PCR) Not Detected (NotDetected) M. pneumoniae (PCR) Not Detected (NotDetected) Parainfluenza 1 (PCR) Not Detected (NotDetected) Parainfluenza 2 (PCR) Not Detected (NotDetected) Parainfluenza 3 (PCR) Not Detected (NotDetected) Parainfluenza 4 (PCR) Not Detected (NotDetected) RSV (PCR) Not Detected (NotDetected) Entero/Rhino (PCR) Not Detected (NotDetected) 07/02/22 Range/Units 20:51 WBC (4.8-10.8) K/ul RBC (4.70-6.10) M/uL Hgb (14.0-18.0) g/dl Hct (42.0-52.0) % MCV (80.0-100.0) fL MCH (25.0-34.0) pg MCHC (32.0-36.0) g/dL RDW Std Deviation (36.4-46.3) fL RDW Coeff of Julissa (11.5-14.5) % Plt Count (130-400) K/uL MPV (9.4-12.4) fL Immature Gran % (Auto) % Neut % (Auto) % Lymph % (Auto) % Person % (Auto) % Eos % (Auto) % Baso % (Auto) % Neut # (Auto) (1.40-6.50) K/uL Lymph # (Auto) (1.2-3.4) K/uL Person # (Auto) (0.11-0.59) K/uL Eos # (Auto) (0-0.50) K/uL Baso # (Auto) (0-0.2) K/uL Immature Gran # (Auto) (0.01-0.20) K/uL PT (9.0-12.0) Seconds INR (0.9-1.1) APTT (21.0-31.0) Seconds PTT Ratio VBG pH (7.36-7.41) VBG pCO2 (38-50) mmHg VBG pO2 mmHg VBG HCO3 mmol/L VBG O2 Saturation % VBG Base Excess mEq/L Sodium (136-145) mmol/L Potassium (3.5-5.1) mmol/L Chloride (98-107) mmol/L Carbon Dioxide (21-32) mmol/L Anion Gap (3-11) BUN (6-23) mg/dl Creatinine (0.6-1.4) mg/dl Est Cr Clr Drug Dosing ml/min Est GFR ( Amer) ml/min Est GFR (Non-Af Amer) ml/min BUN/Creatinine Ratio (10-20) Glucose (70-99(Fasting)) mg/dl Calcium (8.5-10.1) mg/dl Total Bilirubin (0.2-1.0) mg/dl AST (13-39) U/L ALT (7-52) U/L Alkaline Phosphatase (34-104) U/L Troponin I High Sens 7.5 (0-20) pg/ml B-Natriuretic Peptide (0-100) pg/ml Total Protein (6.0-8.3) gm/dl Albumin (3.4-5.0) gm/dl Globulin (2.5-4.0) gm/dl Albumin/Globulin Ratio (0.9-2) Adenovirus (PCR) (NotDetected) B. pertussis DNA (PCR) (NotDetected) B.parapertussis DNA PCR (NotDetected) C. pneumoniae DNA (PCR) (NotDetected) Coronavirus OC43 (PCR) (NotDetected) Coronavirus HKU1 (PCR) (NotDetected) Coronavirus 229E (PCR) (NotDetected) SARS-CoV-2 (PCR) (NotDetected) Coronavirus NL63 (PCR) (NotDetected) Human Metapneumovir PCR (NotDetected) Influenza Type A (PCR) (NotDetected) Influenza Type B (PCR) (NotDetected) M. pneumoniae (PCR) (NotDetected) Parainfluenza 1 (PCR) (NotDetected) Parainfluenza 2 (PCR) (NotDetected) Parainfluenza 3 (PCR) (NotDetected) Parainfluenza 4 (PCR) (NotDetected) RSV (PCR) (NotDetected) Entero/Rhino (PCR) (NotDetected) Administered Medications Magnesium Sulfate/Dextrose (Magnesium Sulfate / D5w) 1 gm in 100 mls @ 50 mls/hr IV ONE ONE Stop: 07/03/22 01:29 Last Admin: 07/02/22 23:48 Dose: 50 mls/hr Documented By: XENA Lidocaine (Lidocaine 5% 1 Patch) 1 patch TD HS CHILO Stop: 08/01/22 23:24 Last Admin: 07/02/22 23:48 Dose: 1 patch Documented By: XENA Discontinued Medications Albuterol (Albut/Ipratrop 3mg/0.5mg Neb 3 Ml Vial) 3 ml NEB NOW STA; Protocol Stop: 07/02/22 19:06 Last Admin: 07/02/22 19:34 Dose: 3 ml Documented By: DAQUAN Ampicillin Sodium/Sulbactam Sodium 3,000 mg/ Sodium Chloride 108 mls @ 200 mls/hr IV NOW STA; Protocol Stop: 07/02/22 23:18 Last Admin: 07/03/22 00:03 Dose: Not Given Documented By: XENA Piperacillin Sod/Tazobactam Sod (Zosyn) 4.5 gm in 120 mls @ 240 mls/hr IV NOW ONE Stop: 07/02/22 23:17 Last Admin: 07/02/22 23:48 Dose: 240 mls/hr Documented By: XENA Methylprednisolone 40 mg/ (Syringe) 0.64 mls @ 1.5 mls/min IV NOW STA Stop: 07/02/22 23:25 Last Admin: 07/03/22 00:03 Dose: Not Given Documented By: XENA Ioversol (Optiray 320 500ml) 118 ml IV ONCE ONE Stop: 07/02/22 21:44 Last Admin: 07/02/22 21:46 Dose: 118 ml Documented By: J CARLOS Methylprednisolone (Methylprednisolone 125 Mg/2 Ml Vial) 125 mg IV NOW STA Stop: 07/02/22 19:07 Last Admin: 07/02/22 19:33 Dose: 125 mg Documented By: ML Morphine Sulfate (Morphine Sulfate 4 Mg/Ml 1 Ml Carp\Vial) 4 mg IV NOW STA Stop: 07/02/22 19:06 Last Admin: 07/02/22 19:33 Dose: 4 mg Documented By: ML Ondansetron HCl (Ondansetron Inj 2 Mg/Ml 2 Ml Vial) 4 mg IV NOW STA Stop: 07/02/22 19:06 Last Admin: 07/02/22 19:33 Dose: 4 mg Documented By: ML Imaging Data Radiologist's Impression: Chest X-Ray 07/02/22 18:53 XR chest 1V portable HISTORY: Dyspnea COMPARISON: Chest 06/20/2022. FINDINGS: Emphysema. No pneumothorax. The heart is normal in size. Left greater than right bibasilar airspace opacities are again noted. These are similar to the prior studies. A small left pleural effusion persists. IMPRESSION: Redemonstration of the left greater than right bibasilar airspace opacities and a small left pleural effusion. ACT 112: Negative or not required by law. Electronically signed by: Madan Henderson M.D. 07/02/2022 7:53 PM Discharge Plan Visit Data Chief Complaint: Shortness of Breath/Dyspnea Stated Complaint: SOB ED Provider: Joni Gonzalez Discharge Problem: Pneumonia Forms Stand Alone Forms: My [facility] Prescriptions Prescriptions: No Action Daliresp 500 mcg tablet 500 mcg PO QAM folic acid 1 mg tablet 1 mg PO QAM ProAir RespiClick 90 mcg/actuation aerosol powdr breath activated 2 puffs INH Q4H PRN (Reason: shortness of breath or wheezing) thiamine HCl (vitamin B1) 100 mg tablet 100 mg PO QAM cyanocobalamin (vitamin B-12) 100 mcg tablet 100 mcg PO DAILY fluticasone propion-salmeterol [Advair Diskus] 250-50 mcg/dose Blister With Device 1 inh INHALATION BID omeprazole 40 mg Capsule,Delayed Release(Dr/Ec) 40 mg PO DAILYBB acetaminophen [Tylenol Extra Strength] 500 mg Tablet 500 mg PO Q4H PRN (Reason: Pain) levalbuterol HCl [Xopenex] 1.25 mg/3 mL Solution For Nebulization 1.25 mg INHALATION TID multivitamin with minerals Tablet 1 tab PO DAILY ipratropium bromide 0.02 % Solution 2.5 ml INHALATION TID PRN (Reason: Shortness Of Breath Or Wheezing) potassium chloride 20 mEq Tablet Extended Release 20 meq PO DAILY Combivent Respimat 20-100 mcg/actuation mist 1 puff INHALATION QID famotidine 20 mg tablet 20 mg PO DAILY PRN (Reason: Heartburn) Referrals Referrals: Kavya Dillard CRNP [Primary Care Provider] - : Pneumonia Qualifiers: Pneumonia type: due to unspecified organism Laterality: left Lung location: lower lobe of lung Qualified Code(s): J18.9 - Pneumonia, unspecified organism
[2022-07-02 19:18] LABS: Basophils # (auto) 0.01 K/uL (0-0.2); Basophils % (auto) 0.1 %; Eosinophils # (auto) 0.15 K/uL (0-0.50); Eosinophils % (auto) 1.5 %; Hematocrit (blood only) 34.3 % (42.0-52.0); Hemoglobin 10.9 g/dl (14.0-18.0); Immature Granulocytes # (auto) 0.05 K/uL (0.01-0.20); Immature Granulocytes % (auto) 0.5 %; Lymphocytes % (auto) 21.7 %; Mean Corpuscular Hemoglobin 30.2 pg (25.0-34.0); Mean Corpuscular Hgb Conc 31.8 g/dL (32.0-36.0); Mean Platelet Volume 9.4 fL (9.4-12.4); Monocytes # (auto) 0.94 K/uL (0.11-0.59); Monocytes % (auto) 9.7 %; Neutrophils # (auto) 6.44 K/uL (1.40-6.50); Neutrophils % (auto) 66.5 %; Platelet Count 460 K/uL (130-400); Red Blood Count 3.61 M/uL (4.70-6.10); White Blood Count 9.69 K/ul (4.8-10.8)
[2022-07-02 19:29] LABS: INR 1.1 (0.9-1.1); Partial Thromboplastin Time 28.8 Seconds (21.0-31.0); Prothrombin Time 11.5 Seconds (9.0-12.0)
[2022-07-02 19:35] LABS: Albumin Level 3.1 gm/dl (3.4-5.0); Bilirubin,Total 0.3 mg/dl (0.2-1.0); Calcium 8.8 mg/dl (8.5-10.1); Troponin I High Sensitivity 6.9 pg/ml (0-20)
[2022-07-02 19:41] LABS: Albumin Globulin Ratio 0.9 (0.9-2); BUN Creatinine Ratio 12.2 (10-20); Creatinine Clr Calc Pharmacy 40.2 ml/min; Est GFR (African American) 84.6 ml/min; Globulin 3.5 gm/dl (2.5-4.0); Total Protein 6.6 gm/dl (6.0-8.3)
[2022-07-02 19:51] LABS: Base Excess VBG 1.5 mEq/L; HCO3 VBG 28 mmol/L; Oxygen Saturation VBG < 60.0 %; PCO2 VBG 49 mmHg (38-50); PO2 VBG 21 mmHg; pH VBG 7.36 (7.36-7.41)
--- NOTE | 2022-07-02 19:54 | XRay Report ---
XR chest 1V portable HISTORY: Dyspnea COMPARISON: Chest 06/20/2022. FINDINGS: Emphysema. No pneumothorax. The heart is normal in size. Left greater than right bibasilar airspace opacities are again noted. These are similar to the prior studies. A small left pleural effu rakel persists. IMPRESSION: Redemonstration of the left greater than right bibasilar airspace opacities and a small left pleural effusion. ACT 112: Negative or not required by law. Electronically signed by: Madan Henderson M.D. 07/02/2022 7:53 PM
[2022-07-02 21:02] LABS: Adenovirus PCR Not Detected (NotDetected); Bordetella parapertussis PCR Not Detected (NotDetected); Bordetella pertussis PCR Not Detected (NotDetected); Chlamydia pneumoniae PCR Not Detected (NotDetected); Coronavirus 229E PCR Not Detected (NotDetected); Coronavirus CoV-2 (COVID19)PCR Not Detected (NotDetected); Coronavirus HKU1 PCR Not Detected (NotDetected); Coronavirus NL63 PCR Not Detected (NotDetected); Coronavirus OC43PCR Not Detected (NotDetected); Human Metapneumovirus PCR Not Detected (NotDetected); Influenza A PCR Not Detected (NotDetected); Influenza B PCR Not Detected (NotDetected); Mycoplasma pneumoniae PCR Not Detected (NotDetected); Parainfluenza Virus 1 PCR Not Detected (NotDetected); Parainfluenza Virus 2 PCR Not Detected (NotDetected); Parainfluenza Virus 3 PCR Not Detected (NotDetected); Parainfluenza Virus 4 PCR Not Detected (NotDetected); Respiratory Syncytial VirusPCR Not Detected (NotDetected); Rhinovirus/Enterovirus PCR Not Detected (NotDetected)
[2022-07-02] MEDS ORDERED: OPTIRAY 320 500ml IV ONE (21:43)
[2022-07-02] MEDS ORDERED: AZITHROMYCIN 500 MG in DEXTROSE 5% 250 ML IV STA (22:46)
[2022-07-02] MEDS ORDERED: AMPICILLIN/SULBACTAM SOD 3,000 MG in 0.9 % SODIUM CHLORIDE 100 ML IV STA (22:46)
[2022-07-02] MEDS ORDERED: PIPERACILLIN/TAZOBACTAM 4.5 GM/120 ML BAG IV ONE (22:48)
--- NOTE | 2022-07-02 23:18 | History & Physical Report ---
Date of Service July 02, 2022 Assessment & Plan (1) Respiratory failure, acute and chronic: Plan: chronic respiratory failure secondary to COPD on home O2, Secondary to protracted COPD exacerbation secondary to complicated pneumonia Recurrent Pseudomonas pneumonia status post recent Levaquin Rx Pleurisy adding to symptoms chronic anemia, hemoglobin at baseline alcohol abuse as per records, last drink was 3 days ago as per patient Malnutrition (low BMI) past tobacco abuse Medical telemetry Supplemental O2 Baseline ABG CS, Zosyn Nebs RTC, steroid course for COPD exacerbation Pulmonary consult Re: Protracted COPD exacerbation,cavitary/complicated pneumon ia Lidoderm patch trial for pleurisy DT precautions, SANJIV S if with signs of alcohol withdrawal Nutrition consult RE low BMI DVT prophylaxis. Heparin subcu DNR Text document was generated using [employer] voice recognition software. It may contain grammatical or spelling errors. Kindly contact undersigned for clarification of any documentation item in question. History of Present Illness Chief Complaint: Left-sided chest pain, shortness of breath, cough Primary Care Provider: GARRETT Kaiser History obtained from patient and records. Medical history significant for chronic respiratory failure secondary to COPD on home O2, recurrent C. difficile, chronic anemia ( baseline hemoglobin 9), alcohol abuse as per records, past tobacco abuse. Recent confinement June 20 to 2022 for COPD exacerbation secondary to Pseudomonas pneumonia. Patient discharged on Levaquin and steroid course. According to patient, he still was not comfortable at time of discharge. Pleuritic left-sided chest pain with junky cough symptoms productive of yellow sputum. Patient denies aspiration. Worsening symptoms and weakness despite completion of discharge meds. Denies weight gain, patient actually losing weight. Patient returned to the ER for evaluation. Solu-Medrol, Zosyn, neb treatment administered at the ER. 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+ Allergies Allergy/AdvReac Type Severity Reaction Status Date / Time No Known Allergies Allergy Verified 07/02/22 19:29 Home Medications Medication Instructions Recorded Confirmed Type albuterol sulfate 90 mcg/actuation 2 puffs inhalation Q4H PRN 04/11/19 07/02/22 History breath activated powder inhaler shortness of breath or wheezing (ProAir RespiClick) folic acid 1 mg tablet 1 mg PO QAM 04/11/19 07/02/22 History roflumilast 500 mcg tablet 500 mcg PO QAM 04/11/19 07/02/22 History (Daliresp) thiamine HCl (vitamin B1) 100 mg 100 mg PO QAM 04/11/19 07/02/22 History tablet cyanocobalamin (vitamin B-12) 100 100 mcg PO DAILY 08/23/21 07/02/22 History mcg tablet fluticasone 250 mcg-salmeterol 50 1 inh inhalation BID 08/23/21 07/02/22 History mcg/dose blistr powdr for inhalation (Advair Diskus) acetaminophen 500 mg tablet 500 mg PO Q4H PRN Pain 09/27/21 07/02/22 History (Tylenol Extra Strength) ipratropium bromide 0.02 % 2.5 ml inhalation TID PRN 09/27/21 07/02/22 History solution for inhalation Shortness Of Breath Or Wheezing levalbuterol HCl 1.25 mg/3 mL 1.25 mg inhalation TID 09/27/21 07/02/22 History solution for nebulization (Xopenex) multivitamin with minerals 1 tab PO DAILY 09/27/21 07/02/22 History omeprazole 40 mg capsule,delayed 40 mg PO DAILYBB 09/27/21 07/02/22 History release potassium chloride 20 mEq 20 meq PO DAILY 09/27/21 07/02/22 History tablet,extended release ipratropium 20 mcg-albuterol 100 1 puff inhalation QID 12/05/21 07/02/22 History mcg/actuation mist for inhalation (Combivent Respimat) famotidine 20 mg tablet 20 mg PO DAILY PRN Heartburn 06/20/22 07/02/22 History Past Med/Surg History Medical History Chronic obstructive pulmonary disease Chronic respiratory failure COPD exacerbation Elevated troponin I level Fibrosis of lung GERD with esophagitis History of alcohol abuse History of tobacco use Hypomagnesemia On home oxygen therapy WEARS O2 AT 2L CONT. Oxygen dependent Pulmonary hypertension Surgical History History of right cataract surgery History of tooth extraction Family History Mother Diverticulitis Father COPD (chronic obstructive pulmonary disease) Dad was a smoker Social History Smoking Status: Former smoker Tobacco Type: E-cigarettes / Vaping Second Hand Exposure: Yes; Hx Alcohol Use: Yes Alcohol type: beer Hx Substance Use: No Preferred Language: Khmer Communication Ability: Effective Hot Worker Required: No Beliefs That Will Affect Care: None marital status: Current Living Situation: Spouse Feels Safe at Home: Yes Assistive Devices: Cane, Glasses, Nebulizer, Oxygen - Continuous, Walker and Wheelchair Review of Systems Review of Systems: As per HPI, all other systems reviewed and negative Physical Exam Physical Exam: GENERAL: Slightly uncomfortable, underweight, chronically ill, respiratory distress SKIN: Pallor, warm HEENT: Pale palpebral conjunctivae, no ptosis, dry buccal mucosa, nasal cannula in place NECK : Supple, no tenderness CHEST : Decreased breath sounds, occasional expiratory wheezes, anterior chest wall tenderness left HEART : RRR, no obvious murmurs ABDOMEN: no distention, no tenderness EXTREMITIES : No LE swelling/tenderness, no other conspicuous deformities noted NEUROLOGIC : Coherent, no facial asymmetry, no other gross focality Results & Data Results & Data ([facility]) Vital Signs (Past 12 Hours) Vital Signs Temp Pulse Pulse Resp BP BP Pulse Ox 07/02/22 22:00 96 H 31 H 104/60 99 07/02/22 20:43 99 H 17 118/57 L 100 07/02/22 18:59 96 H 33 H 99 07/02/22 18:47 37.3 C 101 H 33 H 124/68 98 07/02/22 18:43 07/02/22 18:43 O2 Del Method O2 Flow Rate 07/02/22 22:00 Nasal Cannula 3 07/02/22 20:43 Nasal Cannula 3 07/02/22 18:59 Nasal Cannula 3 07/02/22 18:47 Nasal Cannula 3 07/02/22 18:43 Nasal Cannula 3 07/02/22 18:43 Nasal Cannula 3 Laboratory Results Laboratory Results WBC 9.69 K/ul (4.8-10.8) 07/02/22 18:40 RBC 3.61 M/uL (4.70-6.10) L 07/02/22 18:40 Hgb 10.9 g/dl (14.0-18.0) L 07/02/22 18:40 Hct 34.3 % (42.0-52.0) L 07/02/22 18:40 MCV 95.0 fL (80.0-100.0) 07/02/22 18:40 MCH 30.2 pg (25.0-34.0) 07/02/22 18:40 MCHC 31.8 g/dL (32.0-36.0) L 07/02/22 18:40 RDW Std Deviation 49.0 fL (36.4-46.3) H 07/02/22 18:40 RDW Coeff of Julissa 14.0 % (11.5-14.5) 07/02/22 18:40 Plt Count 460 K/uL (130-400) H 07/02/22 18:40 MPV 9.4 fL (9.4-12.4) 07/02/22 18:40 Immature Gran % (Auto) 0.5 % 07/02/22 18:40 Neut % (Auto) 66.5 % 07/02/22 18:40 Lymph % (Auto) 21.7 % 07/02/22 18:40 Rock % (Auto) 9.7 % 07/02/22 18:40 Eos % (Auto) 1.5 % 07/02/22 18:40 Baso % (Auto) 0.1 % 07/02/22 18:40 Neut # (Auto) 6.44 K/uL (1.40-6.50) 07/02/22 18:40 Lymph # (Auto) 2.10 K/uL (1.2-3.4) 07/02/22 18:40 Rock # (Auto) 0.94 K/uL (0.11-0.59) H 07/02/22 18:40 Eos # (Auto) 0.15 K/uL (0-0.50) 07/02/22 18:40 Baso # (Auto) 0.01 K/uL (0-0.2) 07/02/22 18:40 Immature Gran # (Auto) 0.05 K/uL (0.01-0.20) 07/02/22 18:40 PT 11.5 Seconds (9.0-12.0) 07/02/22 18:40 INR 1.1 (0.9-1.1) 07/02/22 18:40 APTT 28.8 Seconds (21.0-31.0) 07/02/22 18:40 PTT Ratio 1.0 07/02/22 18:40 VBG pH 7.36 (7.36-7.41) 07/02/22 19:34 VBG pCO2 49 mmHg (38-50) 07/02/22 19:34 VBG pO2 21 mmHg 07/02/22 19:34 VBG HCO3 28 mmol/L 07/02/22 19:34 VBG O2 Saturation < 60.0 % 07/02/22 19:34 VBG Base Excess 1.5 mEq/L 07/02/22 19:34 Sodium 140 mmol/L (136-145) 07/02/22 18:40 Potassium 4.0 mmol/L (3.5-5.1) 07/02/22 18:40 Chloride 105 mmol/L (98-107) 07/02/22 18:40 Carbon Dioxide 28 mmol/L (21-32) 07/02/22 18:40 Anion Gap 7 (3-11) 07/02/22 18:40 BUN 12 mg/dl (6-23) 07/02/22 18:40 Creatinine 0.98 mg/dl (0.6-1.4) 07/02/22 18:40 Est Cr Clr Drug Dosing 40.2 ml/min 07/02/22 18:40 Est GFR ( Amer) 84.6 ml/min 07/02/22 18:40 Est GFR (Non-Af Amer) 73.0 ml/min 07/02/22 18:40 BUN/Creatinine Ratio 12.2 (10-20) 07/02/22 18:40 Glucose 89 mg/dl (70-99(Fasting)) 07/02/22 18:40 Calcium 8.8 mg/dl (8.5-10.1) 07/02/22 18:40 Total Bilirubin 0.3 mg/dl (0.2-1.0) 07/02/22 18:40 AST 11 U/L (13-39) L 07/02/22 18:40 ALT 10 U/L (7-52) 07/02/22 18:40 Alkaline Phosphatase 131 U/L (34-104) H 07/02/22 18:40 Troponin I High Sens 7.5 pg/ml (0-20) 07/02/22 20:51 B-Natriuretic Peptide 167 pg/ml (0-100) H 07/02/22 19:34 Total Protein 6.6 gm/dl (6.0-8.3) 07/02/22 18:40 Albumin 3.1 gm/dl (3.4-5.0) L 07/02/22 18:40 Globulin 3.5 gm/dl (2.5-4.0) 07/02/22 18:40 Albumin/Globulin Ratio 0.9 (0.9-2) 07/02/22 18:40 Adenovirus (PCR) Not Detected (NotDetected) 07/02/22 19:40 B. pertussis DNA (PCR) Not Detected (NotDetected) 07/02/22 19:40 B.parapertussis DNA PCR Not Detected (NotDetected) 07/02/22 19:40 C. pneumoniae DNA (PCR) Not Detected (NotDetected) 07/02/22 19:40 Coronavirus OC43 (PCR) Not Detected (NotDetected) 07/02/22 19:40 Coronavirus HKU1 (PCR) Not Detected (NotDetected) 07/02/22 19:40 Coronavirus 229E (PCR) Not Detected (NotDetected) 07/02/22 19:40 SARS-CoV-2 (PCR) Not Detected (NotDetected) 07/02/22 19:40 Coronavirus NL63 (PCR) Not Detected (NotDetected) 07/02/22 19:40 Human Metapneumovir PCR Not Detected (NotDetected) 07/02/22 19:40 Influenza Type A (PCR) Not Detected (NotDetected) 07/02/22 19:40 Influenza Type B (PCR) Not Detected (NotDetected) 07/02/22 19:40 M. pneumoniae (PCR) Not Detected (NotDetected) 07/02/22 19:40 Parainfluenza 1 (PCR) Not Detected (NotDetected) 07/02/22 19:40 Parainfluenza 2 (PCR) Not Detected (NotDetected) 07/02/22 19:40 Parainfluenza 3 (PCR) Not Detected (NotDetected) 07/02/22 19:40 Parainfluenza 4 (PCR) Not Detected (NotDetected) 07/02/22 19:40 RSV (PCR) Not Detected (NotDetected) 07/02/22 19:40 Entero/Rhino (PCR) Not Detected (NotDetected) 07/02/22 19:40 Impressions Chest X-Ray 07/02/22 18:53 XR chest 1V portable HISTORY: Dyspnea COMPARISON: Chest 06/20/2022. FINDINGS: Emphysema. No pneumothorax. The heart is normal in size. Left greater than right bibasilar airspace opacities are again noted. These are similar to the prior studies. A small left pleural effusion persists. IMPRESSION: Redemonstration of the left greater than right bibasilar airspace opacities and a small left pleural effusion. ACT 112: Negative or not required by law. Electronically signed by: Madan Henderson M.D. 07/02/2022 7:[address] chest initial read: No pulmonary embolism. Opacities in the lungs most likely representing pneumonia with apparent cavitation in the left lower lobe. Small left pleural effusion. Extensive coronary artery atherosclerotic calcifications. Severe emphysematous change of the lungs. T7 compression deformity appears similar to prior. EKG as per my interpretation :Rate 90, NSR, normal axis, T wave abnormality septal leads, PVCs
[2022-07-02] MEDS ORDERED: methylPREDNISolone 40 MG in SYRINGE 0 ML IV STA (23:24)
[2022-07-02] MEDS ORDERED: MAGNESIUM SULFATE / D5W 1 GM/100 ML BAG IV ONE (23:30)
[2022-07-02] MEDS ORDERED: KETOROLAC TROMETHAMINE 15 MG/ML VIAL IV ONE (23:47)
[2022-07-02] MEDS: LIDOCAINE 5% 1 PATCH TD SCH (23:48)
[2022-07-02] MEDS ORDERED: LORazepam 0.5 MG TAB PO PRN (23:54)
[2022-07-02] MEDS ORDERED: oxyCODONE HCL IR 5 MG TAB (IMMEDIATE RELEASE) PO PRN (23:54)
[2022-07-02] MEDS ORDERED: ALBUMIN 25% 100 mL 25 GM/100 ML VIAL IV ONE (23:54)
[2022-07-03 00:38] LABS: Base Excess ABG 0.5 mEq/L (-9-1.8); HCO3 ABG 25 mmol/L (19-24); Oxygen Saturation ABG > 100.0 % (90-95); PCO2 ABG 37 mmHg (35-46); PO2 ABG 135 mmHg (80-95); pH ABG 7.43 (7.35-7.45)
[2022-07-03 00:41] LABS: Allen Test Pos (Pos)
[2022-07-03] MEDS: IPRATROPIUM BROMIDE NEB SOLN 0.02% 2.5 ML VIAL INH SCH ×4 (00:45→20:16)
[2022-07-03] MEDS: LEVALBUTEROL 1.25MG/0.5ML NEB INH SCH ×4 (00:45→20:16)
[2022-07-03] MEDS ORDERED: MAGNESIUM SULFATE / D5W 1 GM/100 ML BAG IV ONE (00:56)
[2022-07-03] MEDS ORDERED: XOPENEX/ATROVENT 1.25mg/0.5MG NEB COMBO NEB SCH (01:00)
[2022-07-03] MEDS ORDERED: ACETAMINOPHEN 325 MG TAB PO PRN (02:42)
[2022-07-03] MEDS ORDERED: PROMETHAZINE HCL 6.25 MG in SODIUM CHLORIDE 0.9% 50 ML IV PRN (02:42)
[2022-07-03] MEDS ORDERED: FAMOTIDINE 20 MG TAB PO PRN (02:42)
[2022-07-03] MEDS ORDERED: PIPERACILLIN/TAZOBACTAM 3.375 GM in DEXTROSE 5% 100 ML IV SCH (06:00)
[2022-07-03] MEDS: PIPERACILLIN/TAZOBACTAM 4.5 GM in DEXTROSE 5% 100 ML IV SCH ×3 (06:25→21:00)
[2022-07-03] MEDS: HEPARIN SOD 5,000 UNIT/0.5 ML VIAL SQ SCH ×3 (06:25→21:00)
[2022-07-03] MEDS: PANTOprazole 40 MG TAB PO SCH (06:26)
--- NOTE | 2022-07-03 06:35 | CT Scan Report ---
CT angio chest PE protocol CLINICAL HISTORY: PE TECHNIQUE: Multidetector row helical CT of the chest was performed with angiographic protocol. [place] l and sagittal reformations were obtained. Coronal and sagittal MIPS were obtained from the axial joshua a set and were submitted for review. Automated dose lowering techniques and/or adjustment according to patient size were utilized for this exam. CT DOSE: 393.93 mGy.cm Comparison: Comparison is made to CTA chest 06/20/2022 FINDINGS: Lungs and pleura: Severe emphysematous changes are seen. There is a small left pleural effusion which is new from prior exam. Pneumonia in the left greater than right lower lungs is somewhat increased u nchanged from prior exam. There is suggestion of some cavitary changes in the medial aspect of the le ft lower lobe. Heart and pericardium: Heart size is normal. No pericardial effusion. Vessels: No evidence of pulmonary embolism. Severe atherosclerotic disease is seen. Incidental note i s made of prominent atherosclerotic disease in the great vessels with possible hemodynamically signif icant stenosis in the right common carotid artery, within limits of a nondedicated exam. Mediastinum and sergio: A few calcified lymph nodes are seen. Additional prominent lymph nodes measure up to 1 cm in diameter. Chest wall and lower neck: Unremarkable. Abdomen: A hiatal hernia is seen. Bones: Degenerative changes in the thoracic spine. Compression deformity and T7 appears unchanged fro m prior exam. IMPRESSION: 1. No pulmonary embolus is seen. 2. Interval mild worsening of left lower lobe predominant pneumonia with reactive lymph nodes. ACT 112: Negative or not required by law. Electronically signed by: Jose Miguel Jiménez M.D. 07/03/2022 6:34 AM
[2022-07-03 07:53] LABS: Calcium 8.8 mg/dl (8.5-10.1); Magnesium 2.4 mg/dl (1.7-2.4); Potassium 4.7 mmol/L (3.5-5.1)
[2022-07-03 07:58] LABS: BUN Creatinine Ratio 14.1 (10-20); Creatinine Clr Calc Pharmacy 42.2 ml/min; Est GFR (African American) 83.6 ml/min; Est GFR (Non-African American) 72.1 ml/min
[2022-07-03 08:10] LABS: Hematocrit (blood only) 27.1 % (42.0-52.0); Hemoglobin 8.9 g/dl (14.0-18.0); Immature Granulocytes # (auto) 0.02 K/uL (0.01-0.20); Immature Granulocytes % (auto) 0.5 %; Lymphocytes # (auto) 0.76 K/uL (1.2-3.4); Lymphocytes % (auto) 20.5 %; Mean Corpuscular Hemoglobin 30.2 pg (25.0-34.0); Mean Corpuscular Hgb Conc 32.8 g/dL (32.0-36.0); Mean Corpuscular Volume 91.9 fL (80.0-100.0); Mean Platelet Volume 9.4 fL (9.4-12.4); Monocytes # (auto) 0.05 K/uL (0.11-0.59); Monocytes % (auto) 1.3 %; Neutrophils # (auto) 2.88 K/uL (1.40-6.50); Neutrophils % (auto) 77.7 %; Platelet Count 337 K/uL (130-400); RDW Coefficient of Variation 13.9 % (11.5-14.5); RDW Standard Deviation 46.5 fL (36.4-46.3); Red Blood Count 2.95 M/uL (4.70-6.10); White Blood Count 3.71 K/ul (4.8-10.8)
[2022-07-03] MEDS: CYANOCOBALAMIN (B-12) 100 MCG TABLET PO SCH (08:11)
[2022-07-03] MEDS: FOLIC ACID 1 MG TAB PO SCH (08:12)
[2022-07-03] MEDS: MULTIVITAMIN TAB PO SCH (08:12)
[2022-07-03] MEDS: predniSONE 20 MG TAB PO SCH (08:12)
[2022-07-03] MEDS: THIAMINE HCL 100 MG TAB PO SCH (08:12)
[2022-07-03] MEDS ORDERED: FLUTICASONE/VILANTEROL 100/25MCG 14 PUFFS/INHALER INH SCH (09:00)
[2022-07-03] MEDS ORDERED: FLUTICASONE/SALMETEROL 250/50 (ADVAIR) 14 PUFF/1 INHALER INH SCH (09:00)
[2022-07-03] MEDS ORDERED: NON-FORMULARY MEDICATION (Multivitamin With Minerals Tablet) PO SCH (09:00)
--- NOTE | 2022-07-03 12:41 | Pulmonary Consultation ---
Date of Consultation July 03, 2022 Assessment & Plan (1) Multifocal pneumonia: Patient has multifocal pneumonia noted on CT chest that is predominantly bibasilar. Recommend swallow study and speech therapy consultation as he is at risk for aspiration. Continue with broad-spectrum antibiotics. Prior cultures suggestive of pansensitive Pseudomonas. Recommend repeat sputum cultures if able. Will add hypertonic saline twice daily and percussive vest therapy 4 times a day to promote mucociliary clearance. Change Breo to Brovana and budesonide. Recommend discharging on ICS/LAMA and LAMA combination inhaler upon discharge. He is on Advair. Would recommend the addition of Spiriva as opposed to Combivent. Continue Daliresp on an outpatient basis. Wean supplemental oxygen to maintain saturations of 88 to 92%. Avoid hyperoxia. Recommend nutrition consult given severe malnutrition and weight loss. Recommend palliative care consult given advanced COPD and frequent readmissions. Patient notes that he does not have any home health nursing and cannot afford it. Recommend case management consult. His is his caregiver. We did have a goals of care discussion regarding what his wishes are. He realizes that he has very advanced disease and is open to the prospect of having home health nursing assist if he is able to afford it. (2) Chronic respiratory failure with hypoxia, on home oxygen therapy: (3) Severe protein-calorie malnutrition: (4) Goals of care, counseling/discussion: History of Present Illness Reason for Consultation: "Acute respiratory failure" Attending Physician: Alice Hood MD History of Present Illness 81-year-old male with history of alcohol abuse, severe protein calorie maln utrition, chronic anemia, chronic oxygen dependence and advanced COPD presented to the hospital due to pleuritic pain and increasing cough with shortness of breath. He was started on Zosyn and IV Solu-Medrol. Pulmonary is consulted to assist. He was discharged from the hospital recently on 06/26/2022 for aspiration pneumonia and COPD flare. He was sent home on Levaquin. He was told that he continue Daliresp, Advair and Combivent 4 times daily. He had sputum cultures 06/21 which revealed pansensitive Pseudomonas. Chest CTA completed yesterday revealed bibasilar pneumonia, left greater than right with an adjacent small pleural effusion. He has severe emphysematous changes. Labs significant this admission for worsening anemia with a hemoglobin of 8.9. ABG this admission revealed mild metabolic alkalosis. PO2 was 135 on 3 L. Prior ABGs were not suggestive of hypercapnia. He had a PFT in 2017 at a [facility] facility which revealed severe obstruction with an FEV1 of 40%. Flow volume loops were consistent with obstructive lung disease. He was previously followed by ABRAHAM Dodson in the pulmonary clinic and last seen by him on 10/09/2020. He has an extensive tobacco abuse history and smoked from -2015 roughly 1 to 2 packs/day. He had an echo 08/24/2021 which revealed a dilated right ventricle, mild aortic valve sclerosis, grade 1 diastolic dysfunction and an LVEF greater than 70%. Allergies Allergy/AdvReac Type Severity Reaction Status Date / Time No Known Allergies Allergy Verified 07/02/22 19:29 Home Medications Medication Instructions Recorded Confirmed Type albuterol sulfate 90 mcg/actuation 2 puffs inhalation Q4H PRN 04/11/19 07/02/22 History breath activated powder inhaler shortness of breath or wheezing (ProAir RespiClick) folic acid 1 mg tablet 1 mg PO QAM 04/11/19 07/02/22 History roflumilast 500 mcg tablet 500 mcg PO QAM 04/11/19 07/02/22 History (Daliresp) thiamine HCl (vitamin B1) 100 mg 100 mg PO QAM 04/11/19 07/02/22 History tablet cyanocobalamin (vitamin B-12) 100 100 mcg PO DAILY 08/23/21 07/02/22 History mcg tablet fluticasone 250 mcg-salmeterol 50 1 inh inhalation BID 08/23/21 07/02/22 History mcg/dose blistr powdr for inhalation (Advair Diskus) acetaminophen 500 mg tablet 500 mg PO Q4H PRN Pain 09/27/21 07/02/22 History (Tylenol Extra Strength) ipratropium bromide 0.02 % 2.5 ml inhalation TID PRN 09/27/21 07/02/22 History solution for inhalation Shortness Of Breath Or Wheezing levalbuterol HCl 1.25 mg/3 mL 1.25 mg inhalation TID 09/27/21 07/02/22 History solution for nebulization (Xopenex) multivitamin with minerals 1 tab PO DAILY 09/27/21 07/02/22 History omeprazole 40 mg capsule,delayed 40 mg PO DAILYBB 09/27/21 07/02/22 History release potassium chloride 20 mEq 20 meq PO DAILY 09/27/21 07/02/22 History tablet,extended release ipratropium 20 mcg-albuterol 100 1 puff inhalation QID 12/05/21 07/02/22 History mcg/actuation mist for inhalation (Combivent Respimat) famotidine 20 mg tablet 20 mg PO DAILY PRN Heartburn 06/20/22 07/02/22 History Patient History Medical History (Updated 07/03/22 @ 13:18 by Rickey Ventura MD) Chronic obstructive pulmonary disease Chronic respiratory failure Chronic respiratory failure with hypoxia, on home oxygen therapy COPD exacerbation Elevated troponin I level Fibrosis of lung GERD with esophagitis Goals of care, counseling/discussion History of alcohol abuse History of tobacco use Hypomagnesemia Multifocal pneumonia On home oxygen therapy WEARS O2 AT 2L CONT. Oxygen dependent Pulmonary hypertension Surgical History History of right cataract surgery History of tooth extraction Family History Mother Diverticulitis Father COPD (chronic obstructive pulmonary disease) Dad was a smoker Social History Smoking Status: Former smoker Tobacco Type: E-cigarettes / Vaping Second Hand Exposure: Yes; Hx Alcohol Use: Yes Alcohol type: beer Hx Substance Use: No Preferred Language: Cymro Communication Ability: Effective Party Demonstrator Required: No Beliefs That Will Affect Care: None marital status: Current Living Situation: Spouse Feels Safe at Home: Yes Assistive Devices: Cane, Glasses, Nebulizer, Oxygen - Continuous, Walker and Wheelchair Review of Systems Review of Systems: All systems reviewed & are unremarkable except as noted in HPI & below Results & Data Results & Data ([facility]) Vital Signs (Past 12 Hours) Vital Signs Temp Pulse Pulse Resp BP BP Pulse Ox 07/03/22 12:24 91 H 20 98 07/03/22 11:21 36.3 C L 71 22 113/61 98 07/03/22 08:00 07/03/22 07:54 36.5 C 72 22 91/51 L 99 07/03/22 07:53 64 07/03/22 06:58 67 16 98 07/03/22 03:41 82 07/03/22 02:43 07/03/22 02:43 36.6 C 88 20 119/73 99 07/03/22 01:00 91 H 33 H 110/70 07/03/22 00:48 87 16 99 O2 Del Method O2 Flow Rate 07/03/22 12:24 Nasal Cannula 2 07/03/22 11:21 Nasal Cannula 2 07/03/22 08:00 Nasal Cannula 3 07/03/22 07:54 Nasal Cannula 2 07/03/22 07:53 07/03/22 06:58 Nasal Cannula 2 07/03/22 03:41 07/03/22 02:43 Nasal Cannula 3 07/03/22 02:43 Nasal Cannula 3 07/03/22 01:00 07/03/22 00:48 Nasal Cannula 4 PG Care Time/CCT Total # of Minutes Spent Total Time Spent with Patient: Total time spent is greater than 50% in coordination of care (as documented) at patient's floor/unit and/or counseling patient: Coding Level of Care Code 16650 INT INP/OBS CARE MIN Diagnoses Multifocal pneumonia J18.9 Chronic respiratory failure with hypoxia, on home oxygen therapy J96.11; Z99.81 Severe protein-calorie malnutrition E43 Goals of care, counseling/discussion Z71.89
--- NOTE | 2022-07-03 13:36 | Hospitalist Progress Note ---
Date of Service July 03, 2022 Assessment & Plan (1) Respiratory failure, acute and chronic: Plan: Chronic respiratory failure secondary to COPD Recently discharged on 06/26/22, Present on admission with worsening SOB associated yellowish productive cough. CXR showedredemonstration of the left greater than right bibasilar airspace opacities and a small left pleural effusion. CTA chest showed Interval mild worsening of left lower lobe predominant p neumonia with reactive lymph nodes. Received Unasyn, Zithromax and solumedrol in the ER Currently on IV Zosyn and prednisone Blood cx pending Continue oxygen supplement, neb treatment, guaifenesin, incentive spirometry, flutter valve, Advair, Daliresp Pulm on board that recommended to add chest PT Will consult speech Anemia Hgb dropped to 8.9 Continue monitor CBC while on subq heparin History of Alcohol abuse Pt denies any history of DT of alcohol withdrawal Last used of alcohol about 4 days ago where he had 2 beers Continue monitor closely for sign of Alcohol withdrawal and DT Severe protein-calorie malnutrition: BMI 16.1 Continue encourage protein intake Will consult nutrition DVT prophylaxis Lovenox hold due to dropped in hgb Will add SCD DVT prophylaxis. Heparin subcu Code status DNR Admission and Anticipated Discharge Date Admission Date: July 02, 2022 Subjective Pt was seen and examined for follow up of SOB Lying in bed with no acute distress He said that he has been having productive cough Denies any chest pain, palpitation, dizziness and fever Review of Systems Review of Systems: All systems reviewed & are unremarkable except as noted in Subjective Physical Exam Physical Exam: General- No acute distress Head- atraumatic Eyes- PERRL, EOMI, ENT- oropharynx clear Neck- supple, no JVD Lungs- clear to auscultation Heart- regular rhythm; no murmur Abdomen- normal bowel sounds, soft, nontender Extremities- no calf tenderness Neuro- alert, oriented x 3; PERRL, EOMI; no facial palsy; no dysarthria Skin- warm & dry Results & Data Results & Data ([facility]) Vital Signs (Past 12 Hours) Vital Signs Temp Pulse Pulse Resp BP Pulse Ox O2 Del Method 07/03/22 12:24 91 H 20 98 Nasal Cannula 07/03/22 11:21 36.3 C L 71 22 113/61 98 Nasal Cannula 07/03/22 08:00 Nasal Cannula 07/03/22 07:54 36.5 C 72 22 91/51 L 99 Nasal Cannula 07/03/22 07:53 64 07/03/22 06:58 67 16 98 Nasal Cannula 07/03/22 03:41 82 07/03/22 02:43 Nasal Cannula 07/03/22 02:43 36.6 C 88 20 119/73 99 Nasal Cannula O2 Flow Rate 07/03/22 12:24 2 07/03/22 11:21 2 07/03/22 08:00 3 07/03/22 07:54 2 07/03/22 07:53 07/03/22 06:58 2 07/03/22 03:41 07/03/22 02:43 3 07/03/22 02:43 3
--- NOTE | 2022-07-03 15:14 | Electrocardiogram Report ---
Test Reason : Blood Pressure : / mmHG Vent. Rate : 091 BPM Atrial Rate : 091 BPM P-R Int : 134 ms QRS Dur : 076 ms QT Int : 330 ms P-R-T Axes : 061 075 064 degrees QTc Int : 405 ms Sinus rhythm with frequent Premature ventricular complexes Abnormal ECG When compared with ECG of 20-JUN-2022 19:39, Nonspecific T wave abnormality no longer evident in Lateral leads Confirmed by Zac Conteh ([id number]) on 07/03/2022 3:14:15 PM Referred By: REFERRED SELF Confirmed By:Sarmad Conteh
[2022-07-03] MEDS: FORMOTEROL 20 MCG/2 ML VIAL INH SCH (20:14)
[2022-07-03] MEDS: SODIUM CHLOR 7% 4 ML NEB NEB SCH (20:15)
[2022-07-03] MEDS: BUDESONIDE 0.25 MG/2 ML VIAL (PULMICORT) NEB SCH (20:16)
[2022-07-03] MEDS: LIDOCAINE 5% 1 PATCH TD SCH (21:02)
[2022-07-03] MEDS: MELATONIN 3 MG TAB PO PRN (21:52)
[2022-07-04] MEDS: LEVALBUTEROL 1.25MG/0.5ML NEB INH SCH ×4 (00:04→19:23)
[2022-07-04] MEDS: IPRATROPIUM BROMIDE NEB SOLN 0.02% 2.5 ML VIAL INH SCH ×4 (00:04→19:28)
[2022-07-04] MEDS: PIPERACILLIN/TAZOBACTAM 4.5 GM in DEXTROSE 5% 100 ML IV SCH ×3 (05:21→22:11)
[2022-07-04] MEDS: HEPARIN SOD 5,000 UNIT/0.5 ML VIAL SQ SCH ×3 (05:22→21:16)
[2022-07-04] MEDS: PANTOprazole 40 MG TAB PO SCH (06:16)
[2022-07-04] MEDS: SODIUM CHLOR 7% 4 ML NEB NEB SCH ×2 (06:51→19:24)
[2022-07-04] MEDS: FORMOTEROL 20 MCG/2 ML VIAL INH SCH ×2 (06:51→19:23)
[2022-07-04] MEDS: BUDESONIDE 0.25 MG/2 ML VIAL (PULMICORT) NEB SCH ×2 (06:51→19:24)
[2022-07-04] MEDS: THIAMINE HCL 100 MG TAB PO SCH (09:11)
[2022-07-04] MEDS: predniSONE 20 MG TAB PO SCH (09:11)
[2022-07-04] MEDS: CYANOCOBALAMIN (B-12) 100 MCG TABLET PO SCH (09:12)
[2022-07-04] MEDS: MULTIVITAMIN TAB PO SCH (09:12)
[2022-07-04] MEDS: FOLIC ACID 1 MG TAB PO SCH (09:12)
--- NOTE | 2022-07-04 10:24 | Pulmonology Progress Note ---
Date of Service July 04, 2022 Assessment & Plan (1) Multifocal pneumonia: Plan: Patient has multifocal pneumonia noted on CT chest that is predominantly bibasilar. Recommend swallow study and speech therapy consultation as he is at risk for aspiration. Continue with broad-spectrum antibiotics. Prior cultures suggestive of pansensitive Pseudomonas. Recommend repeat sputum cultures if able. Repeat chest x-ray in 4 weeks as an outpatient. Continue twice daily hypertonic saline and vest therapy 4 times daily to promote mucociliary clearance. Continue Brovana and budesonide. Recommend discharging on ICS/LABA and LAMA combination inhaler upon discharge. He is on Advair. Would recommend the addition of Spiriva or Incruse Ellipta as opposed to Combivent. Continue Daliresp on an outpatient basis. 5 to 7 days of oral corticosteroids. Recommend 14 days of antibiotics. Can transition to Levaquin and Flagyl for pseudomonal and anaerobic coverage when ready to transition to p.o. Wean supplemental oxygen to maintain saturations of 88 to 92%. Avoid hyperoxia. Recommend nutrition consult given severe malnutrition and weight loss. Recommend palliative care consult given advanced COPD and frequent readmissions. Patient notes that he does not have any home health nursing and cannot afford it. Recommend case management consult. His is his caregiver. No further recommendations at this time. Pulmonary to sign off. Please call with questions. (2) Chronic respiratory failure with hypoxia, on home oxygen therapy: (3) Severe protein-calorie malnutrition: (4) Goals of care, counseling/discussion: Admission and Anticipated Discharge Date Admission Date: July 02, 2022 Subjective Patient seen and examined. He was complaining about the percussive vest therapy. He notes he was having a headache and some shoulder pain after vest therapy. He does feel that his cough is a bit looser. He denies any shortness of breath at rest. He remains on supplemental oxygen. Review of Systems Review of Systems: All systems reviewed & are unremarkable except as noted in HPI & below Physical Exam Physical Exam: Constitutional: Cachectic appearing male no apparent distress. Eyes: Pupils are equal round and reactive to light. Conjunctivae are normal. Anicteric sclera. Ears nose, mouth and throat: Mallampati class 1. Normal posterior oropharynx. Uvula is midline. Neck: Trachea is midline. Visual inspection is normal. Respiratory: Prolonged phase of exhalation. Mild crackles bibasilarly. Cardiovascular: Regular rate and rhythm. No murmurs. No edema. Gastrointestinal: Normal bowel sounds, soft, nontender and nondistended. No hepatosplenomegaly noted. Musculoskeletal: No cyanosis. Patient is able to move all extremities. 4/5 strength in the upper extremities. Skin: No rashes, warm dry and intact. Neurologic: No obvious focal neurological deficits seen. Psychiatric: Alert and oriented x3 with a euthymic affect. Results & Data Results & Data ([facility]) Vital Signs (Past 12 Hours) Vital Signs Temp Pulse Pulse Resp BP Pulse Ox O2 Del Method 07/04/22 07:22 Nasal Cannula 07/04/22 07:47 36.4 C L 84 24 127/67 94 Nasal Cannula 07/04/22 07:17 65 07/04/22 06:51 57 L 18 100 Nasal Cannula 07/04/22 04:11 36.4 C L 67 18 118/63 99 Nasal Cannula 07/04/22 00:05 70 18 96 Nasal Cannula 07/03/22 23:39 87 07/03/22 23:30 36.4 C L 63 20 101/52 L 100 Nasal Cannula O2 Flow Rate 07/04/22 07:22 3 07/04/22 07:47 3 07/04/22 07:17 07/04/22 06:51 3 07/04/22 04:11 3.0 07/04/22 00:05 3 07/03/22 23:39 07/03/22 23:30 3.0 PG Care Time/CCT Total # of Minutes Spent Total Time Spent with Patient: Total time spent is greater than 50% in coordination of care (as documented) at patient's floor/unit and/or counseling patient: Coding Level of Care Code 85149 SUB INP/OBS CARE 2/35MIN Diagnoses Multifocal pneumonia J18.9 Chronic respiratory failure with hypoxia, on home oxygen therapy J96.11; Z99.81 Severe protein-calorie malnutrition E43 Goals of care, counseling/discussion Z71.89
--- NOTE | 2022-07-04 12:28 | Hospitalist Progress Note ---
Date of Service July 04, 2022 Assessment & Plan (1) Respiratory failure, acute and chronic: Plan: Chronic respiratory failure secondary to COPD Recently discharged on 06/26/22, Present on admission with worsening SOB associated yellowish productive cough. CXR showedredemonstration of the left greater than right bibasilar airspace opacities and a small left pleural effusion. CTA chest showed Interval mild worsening of left lower lobe predominant p neumonia with reactive lymph nodes. Received Unasyn, Zithromax and solumedrol in the ER Currently on IV Zosyn and prednisone Blood cx no growth Continue oxygen supplement, neb treatment, guaifenesin, incentive spirometry, flutter valve, Advair, Daliresp Continue chest PT Will need a repeat CXR in 4 weeks as per pulm Plan to change abx to Levaquin and Flagyl for pseudomonal and anaerobic coverage when ready to transition to p.o. Will continue prednisone for 5 to 7 days Will consult speech Anemia Hgb dropped to 8.9 Continue monitor CBC while on subq heparin History of Alcohol abuse Pt denies any history of DT of alcohol withdrawal Last used of alcohol about 4 days ago where he had 2 beers Continue monitor closely for sign of Alcohol withdrawal and DT Severe protein-calorie malnutrition: BMI 16.1 Continue encourage protein intake Continue nutrition consult DVT prophylaxis. Heparin subcu Code status DNR Admission and Anticipated Discharge Date Admission Date: July 02, 2022 Subjective Pt was seen and examined for follow up of SOB Lying in bed with no acute distress eating lunch He said that his breathing slightly improves Denies any chest pain, palpitation, dizziness and fever Review of Systems Review of Systems: All systems reviewed & are unremarkable except as noted in Subjective Physical Exam Physical Exam: General- No acute distress Head- atraumatic Eyes- PERRL, EOMI, ENT- oropharynx clear Neck- supple, no JVD Lungs- +diminished BS Heart- regular rhythm; no murmur Abdomen- normal bowel sounds, soft, nontender Extremities- no calf tenderness Neuro- alert, oriented x 3; PERRL, EOMI; no facial palsy; no dysarthria Skin- warm & dry Results & Data Results & Data ([facility]) Vital Signs (Past 12 Hours) Vital Signs Temp Pulse Pulse Resp BP Pulse Ox O2 Del Method 07/04/22 10:56 36.4 C L 78 22 116/55 L 100 Nasal Cannula 07/04/22 07:22 Nasal Cannula 07/04/22 07:47 36.4 C L 84 24 127/67 94 Nasal Cannula 07/04/22 07:17 65 07/04/22 06:51 57 L 18 100 Nasal Cannula 07/04/22 04:11 36.4 C L 67 18 118/63 99 Nasal Cannula O2 Flow Rate 07/04/22 10:56 3 07/04/22 07:22 3 07/04/22 07:47 3 07/04/22 07:17 07/04/22 06:51 3 07/04/22 04:11 3.0
[2022-07-04] MEDS: LIDOCAINE 5% 1 PATCH TD SCH (19:51)
[2022-07-04] MEDS: MELATONIN 3 MG TAB PO PRN (22:16)
[2022-07-05] MEDS: LEVALBUTEROL 1.25MG/0.5ML NEB INH SCH ×4 (00:10→19:48)
[2022-07-05] MEDS: IPRATROPIUM BROMIDE NEB SOLN 0.02% 2.5 ML VIAL INH SCH ×4 (00:10→19:49)
[2022-07-05] MEDS: BUDESONIDE 0.25 MG/2 ML VIAL (PULMICORT) NEB SCH ×2 (05:09→19:47)
[2022-07-05] MEDS: FORMOTEROL 20 MCG/2 ML VIAL INH SCH ×2 (05:09→19:48)
[2022-07-05] MEDS: SODIUM CHLOR 7% 4 ML NEB NEB SCH ×2 (05:10→19:48)
[2022-07-05] MEDS: HEPARIN SOD 5,000 UNIT/0.5 ML VIAL SQ SCH ×3 (05:50→20:41)
[2022-07-05] MEDS: PANTOprazole 40 MG TAB PO SCH (05:51)
[2022-07-05] MEDS: PIPERACILLIN/TAZOBACTAM 4.5 GM in DEXTROSE 5% 100 ML IV SCH ×3 (05:51→21:06)
[2022-07-05] MEDS: CYANOCOBALAMIN (B-12) 100 MCG TABLET PO SCH (08:00)
[2022-07-05] MEDS: THIAMINE HCL 100 MG TAB PO SCH (08:00)
[2022-07-05] MEDS: MULTIVITAMIN TAB PO SCH (08:00)
[2022-07-05] MEDS: FOLIC ACID 1 MG TAB PO SCH (08:00)
[2022-07-05] MEDS: predniSONE 20 MG TAB PO SCH (08:00)
[2022-07-05 10:00] LABS: Hematocrit (blood only) 28.5 % (42.0-52.0); Hemoglobin 9.1 g/dl (14.0-18.0); Mean Corpuscular Hemoglobin 29.4 pg (25.0-34.0); Mean Corpuscular Hgb Conc 31.9 g/dL (32.0-36.0); Mean Corpuscular Volume 91.9 fL (80.0-100.0); Mean Platelet Volume 9.4 fL (9.4-12.4); Platelet Count 438 K/uL (130-400); RDW Coefficient of Variation 14.2 % (11.5-14.5); RDW Standard Deviation 47.6 fL (36.4-46.3)
--- NOTE | 2022-07-05 16:21 | Hospitalist Progress Note ---
Date of Service July 05, 2022 Assessment & Plan (1) Respiratory failure, acute and chronic: Plan: Chronic respiratory failure secondary to COPD Recently discharged on 06/26/22, Present on admission with worsening SOB associated yellowish productive cough. CXR showedredemonstration of the left greater than right bibasilar airspace opacities and a small left pleural effusion. CTA chest showed Interval mild worsening of left lower lobe predominant p neumonia with reactive lymph nodes. Received Unasyn, Zithromax and solumedrol in the ER Currently on IV Zosyn and prednisone Blood cx no growth Continue oxygen supplement, neb treatment, guaifenesin, incentive spirometry, flutter valve, Advair, Daliresp Continue chest PT Will need a repeat CXR in 4 weeks as per pulm Plan to change abx to Levaquin and Flagyl for pseudomonal and anaerobic coverage when ready to transition to p.o. Continue prednisone to complete for 5 to 7 days speech consulted plan for video swallow in am Continue easy to chew diet Anemia Hgb dropped to 8.9 Continue monitor CBC while on subq heparin History of Alcohol abuse Pt denies any history of DT of alcohol withdrawal Last used of alcohol about 4 days ago where he had 2 beers Continue monitor closely for sign of Alcohol withdrawal and DT Severe protein-calorie malnutrition: BMI 16.1 Continue encourage protein intake Continue nutrition consult DVT prophylaxis. Heparin subcu Code status DNR Disposition Case discussed with Son over the phone Admission and Anticipated Discharge Date Admission Date: July 02, 2022 Subjective Pt was seen and examined for follow up of SOB Lying in bed with no acute distress eating lunch Pt said that his breathing better I called his son over the phone provided with update and answered all his questions Denies any chest pain, palpitation, dizziness and fever Review of Systems Review of Systems: All systems reviewed & are unremarkable except as noted in Subjective Physical Exam Physical Exam: General- No acute distress Head- atraumatic Eyes- PERRL, EOMI, ENT- oropharynx clear Neck- supple, no JVD Lungs- +diminished BS Heart- regular rhythm; no murmur Abdomen- normal bowel sounds, soft, nontender Extremities- no calf tenderness Neuro- alert, oriented x 3; PERRL, EOMI; no facial palsy; no dysarthria Skin- warm & dry Results & Data Results & Data ([facility]) Vital Signs (Past 12 Hours) Vital Signs Temp Pulse Pulse Resp BP Pulse Ox O2 Del Method 07/05/22 15:40 36.6 C 69 21 112/57 L 99 Nasal Cannula 07/05/22 11:51 36.7 C 69 18 131/64 96 Nasal Cannula 07/05/22 07:30 Nasal Cannula 07/05/22 07:52 36.6 C 71 24 131/69 98 Nasal Cannula 07/05/22 07:00 67 07/05/22 05:12 77 20 97 Nasal Cannula O2 Flow Rate 07/05/22 15:40 3 07/05/22 11:51 3 07/05/22 07:30 3 07/05/22 07:52 3 07/05/22 07:00 07/05/22 05:12 3
[2022-07-05] MEDS: LIDOCAINE 5% 1 PATCH TD SCH (20:41)
[2022-07-05] MEDS: MELATONIN 3 MG TAB PO PRN (22:11)
[2022-07-06] MEDS: IPRATROPIUM BROMIDE NEB SOLN 0.02% 2.5 ML VIAL INH SCH ×4 (01:47→19:14)
[2022-07-06] MEDS: LEVALBUTEROL 1.25MG/0.5ML NEB INH SCH ×4 (01:47→19:14)
[2022-07-06] MEDS: PIPERACILLIN/TAZOBACTAM 4.5 GM in DEXTROSE 5% 100 ML IV SCH ×3 (05:28→22:20)
[2022-07-06] MEDS: HEPARIN SOD 5,000 UNIT/0.5 ML VIAL SQ SCH ×3 (05:29→20:40)
[2022-07-06] MEDS: PANTOprazole 40 MG TAB PO SCH (05:30)
[2022-07-06] MEDS: SODIUM CHLOR 7% 4 ML NEB NEB SCH ×2 (07:03→19:14)
[2022-07-06] MEDS: BUDESONIDE 0.25 MG/2 ML VIAL (PULMICORT) NEB SCH ×2 (07:03→19:13)
[2022-07-06] MEDS: FORMOTEROL 20 MCG/2 ML VIAL INH SCH ×2 (07:03→19:13)
[2022-07-06] MEDS: predniSONE 20 MG TAB PO SCH (08:50)
[2022-07-06] MEDS: MULTIVITAMIN TAB PO SCH (08:51)
[2022-07-06] MEDS: CYANOCOBALAMIN (B-12) 100 MCG TABLET PO SCH (08:51)
[2022-07-06] MEDS: FOLIC ACID 1 MG TAB PO SCH (08:51)
[2022-07-06] MEDS: THIAMINE HCL 100 MG TAB PO SCH (08:51)
--- NOTE | 2022-07-06 13:28 | Hospitalist Progress Note ---
Date of Service July 06, 2022 Assessment & Plan (1) Respiratory failure, acute and chronic: Plan: Chronic respiratory failure secondary to COPD Recently discharged on 06/26/22, Present on admission with worsening SOB associated yellowish productive cough. CXR showedredemonstration of the left greater than right bibasilar airspace opacities and a small left pleural effusion. CTA chest showed Interval mild worsening of left lower lobe predominant p neumonia with reactive lymph nodes. Received Unasyn, Zithromax and solumedrol in the ER Currently on IV Zosyn and prednisone Blood cx no growth Continue oxygen supplement, neb treatment, guaifenesin, incentive spirometry, flutter valve, Advair, Daliresp Continue chest PT Will need a repeat CXR in 4 weeks as per pulm Plan to change abx to Levaquin and Flagyl for pseudomonal and anaerobic coverage when ready to transition to p.o. Continue prednisone to complete for 5 to 7 days speech consulted plan for video swallow today Continue easy to chew diet Anemia Hgb stable at 9.1 Continue monitor CBC while on subq heparin History of Alcohol abuse Pt denies any history of DT of alcohol withdrawal Last used of alcohol about 4 days ago where he had 2 beers Continue monitor closely for sign of Alcohol withdrawal and DT Severe protein-calorie malnutrition: BMI 16.1 Continue encourage protein intake Continue nutrition consult DVT prophylaxis. Heparin subcu Code status DNR Disposition Plan to discharge to [facility] tomorrow Admission and Anticipated Discharge Date Admission Date: July 02, 2022 Subjective Pt was seen and examined for follow up of SOB Lying in bed with no acute distress Pt said that he was able to work with therapy today He is planing to go to [facility] tomorrow for rehab Denies any chest pain, palpitation, dizziness and fever Review of Systems Review of Systems: All systems reviewed & are unremarkable except as noted in Subjective Physical Exam Physical Exam: General- No acute distress Head- atraumatic Eyes- PERRL, EOMI, ENT- oropharynx clear Neck- supple, no JVD Lungs- +diminished BS Heart- regular rhythm; no murmur Abdomen- normal bowel sounds, soft, nontender Extremities- no calf tenderness Neuro- alert, oriented x 3; PERRL, EOMI; no facial palsy; no dysarthria Skin- warm & dry Results & Data Results & Data ([facility]) Vital Signs (Past 12 Hours) Vital Signs Temp Pulse Pulse Resp BP Pulse Ox O2 Del Method 07/06/22 11:47 36.9 C 92 H 16 105/55 L 97 Nasal Cannula 07/06/22 09:31 64 07/06/22 08:00 Nasal Cannula 07/06/22 08:05 36.7 C 82 16 121/64 100 Nasal Cannula 07/06/22 07:05 70 22 99 Nasal Cannula 07/06/22 02:50 36.5 C 77 16 129/67 100 Nasal Cannula 07/06/22 01:48 65 18 99 Nasal Cannula O2 Flow Rate 07/06/22 11:47 4 07/06/22 09:31 07/06/22 08:00 4 07/06/22 08:05 4 07/06/22 07:05 4 07/06/22 02:50 4 07/06/22 01:48 4
--- NOTE | 2022-07-06 14:03 | Fluoroscopy Report ---
FL video swallow CLINICAL HISTORY: 81 years-old Male with r/o aspiration. Acute dysphasia TECHNIQUE: Video fluoroscopic evaluation of swallowing was performed in the AP and lateral projection s by the speech pathology staff. The patient is fed thin liquid, mildly thick, pudding and cracker wi th paste consistencies. FLUOROSCOPY TIME: 2.3 minutes. 612 images were submitted COMPARISON STUDY: CTA chest 07/02/2022 FINDINGS: There is normal hyoid excursion and epiglottic deflection. No significant penetration or as piration identified. Swallowing function is within normal limits. Multilevel spondylitic spurring of the cervical spine. IMPRESSION: 1. No aspiration identified. 2. Please see the speech pathologist report for detailed findings and recommendations. ACT 112: Negative or not required by law. Electronically signed by: Rory Forrest M.D. 07/06/2022 2:02 PM
[2022-07-06] MEDS: LIDOCAINE 5% 1 PATCH TD SCH (20:38)
[2022-07-07] MEDS: LEVALBUTEROL 1.25MG/0.5ML NEB INH SCH ×3 (01:17→12:49)
[2022-07-07] MEDS: IPRATROPIUM BROMIDE NEB SOLN 0.02% 2.5 ML VIAL INH SCH ×3 (01:17→12:48)
[2022-07-07] MEDS: HEPARIN SOD 5,000 UNIT/0.5 ML VIAL SQ SCH (05:54)
[2022-07-07] MEDS: PIPERACILLIN/TAZOBACTAM 4.5 GM in DEXTROSE 5% 100 ML IV SCH (05:54)
[2022-07-07] MEDS: PANTOprazole 40 MG TAB PO SCH (05:56)
[2022-07-07] MEDS: BUDESONIDE 0.25 MG/2 ML VIAL (PULMICORT) NEB SCH (06:55)
[2022-07-07] MEDS: FORMOTEROL 20 MCG/2 ML VIAL INH SCH (06:55)
[2022-07-07] MEDS: SODIUM CHLOR 7% 4 ML NEB NEB SCH (06:55)
[2022-07-07] MEDS: MULTIVITAMIN TAB PO SCH (08:51)
[2022-07-07] MEDS: FOLIC ACID 1 MG TAB PO SCH (08:51)
[2022-07-07] MEDS: THIAMINE HCL 100 MG TAB PO SCH (08:51)
[2022-07-07] MEDS: CYANOCOBALAMIN (B-12) 100 MCG TABLET PO SCH (08:51)
--- NOTE | 2022-07-07 14:13 | Discharge Summary ---
Date of Service July 07, 2022 Admission HPI Per Admitting Provider History obtained from patient and records. Medical history significant for chronic respiratory failure secondary to COPD on home O2, recurrent C. difficile, chronic anemia ( baseline hemoglobin 9), alcohol abuse as per records, past tobacco abuse. Recent confinement June 20 to 2022 for COPD exacerbation secondary to Pseudomonas pneumonia. Patient discharged on Levaquin and steroid course. According to patient, he still was not comfortable at time of discharge. Pleuritic left-sided chest pain with junky cough symptoms productive of yellow sputum. Patient denies aspiration. Worsening symptoms and weakness despite completion of discharge meds. Denies weight gain, patient actually losing weight. Patient returned to the ER for evaluation. Solu-Medrol, Zosyn, neb treatment administered at the ER. 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 Exam Per Admitting Provider GENERAL: Slightly uncomfortable, underweight, chronically ill, respiratory distress SKIN: Pallor, warm HEENT: Pale palpebral conjunctivae, no ptosis, dry buccal mucosa, nasal cannula in place NECK : Supple, no tenderness CHEST : Decreased breath sounds, occasional expiratory wheezes, anterior chest wall tenderness left HEART : RRR, no obvious murmurs ABDOMEN: no distention, no tenderness EXTREMITIES : No LE swelling/tenderness, no other conspicuous deformities noted NEUROLOGIC : Coherent, no facial asymmetry, no other gross focality Principal Diagnosis Respiratory failure, acute and chronic: Multifocal Pneumonia Chronic respiratory failure COPD Anemia Severe protein-calorie malnutrition: Discharge Exam General- No acute distress Head- atraumatic Eyes- PERRL, EOMI, ENT- oropharynx clear Neck- supple, no JVD Lungs- +diminished BS Heart- regular rhythm; no murmur Abdomen- normal bowel sounds, soft, nontender Extremities- no calf tenderness Neuro- alert, oriented x 3; PERRL, EOMI; no facial palsy; no dysarthria Skin- warm & dry Discharge Data Allergies Allergy/AdvReac Type Severity Reaction Status Date / Time No Known Allergies Allergy Verified 07/02/22 19:29 Consultations 07/02/22 22:56 ED Decision to Admit Stat 07/03/22 02:42 Consult Pulmonology Routine Ordered Studies 07/02/22 20:27 CT angio chest PE protocol Urgent 07/06/22 00:12 FL video swallow Routine Laboratory Results WBC 9.10 K/ul (4.8-10.8) 07/05/22 09:32 RBC 3.10 M/uL (4.70-6.10) L 07/05/22 09:32 Hgb 9.1 g/dl (14.0-18.0) L 07/05/22 09:32 Hct 28.5 % (42.0-52.0) L 07/05/22 09:32 MCV 91.9 fL (80.0-100.0) 07/05/22 09:32 MCH 29.4 pg (25.0-34.0) 07/05/22 09: MCHC 31.9 g/dL (32.0-36.0) L 07/05/22 09:32 RDW Std Deviation 47.6 fL (36.4-46.3) H 07/05/22 09:32 RDW Coeff of Julissa 14.2 % (11.5-14.5) 07/05/22 09:32 Plt Count 438 K/uL (130-400) H 07/05/22 09:32 MPV 9.4 fL (9.4-12.4) 07/05/22 09:32 Immature Gran % (Auto) 0.5 % 07/03/22 07:07 Neut % (Auto) 77.7 % 07/03/22 07:07 Lymph % (Auto) 20.5 % 07/03/22 07:07 [place] % (Auto) 1.3 % 07/03/22 07:07 Eos % (Auto) 0.0 % 07/03/22 07:07 Baso % (Auto) 0.0 % 07/03/22 07:07 Neut # (Auto) 2.88 K/uL (1.40-6.50) 07/03/22 07:07 Lymph # (Auto) 0.76 K/uL (1.2-3.4) L 07/03/22 07:07 [place] # (Auto) 0.05 K/uL (0.11-0.59) L 07/03/22 07:07 Eos # (Auto) 0.00 K/uL (0-0.50) 07/03/22 07:07 Baso # (Auto) 0.00 K/uL (0-0.2) 07/03/22 07:07 Immature Gran # (Auto) 0.02 K/uL (0.01-0.20) 07/03/22 07:07 PT 11.5 Seconds (9.0-12.0) 07/02/22 18:40 INR 1.1 (0.9-1.1) 07/02/22 18:40 APTT 28.8 Seconds (21.0-31.0) 07/02/22 18:40 PTT Ratio 1.0 07/02/22 18:40 ABG pH 7.43 (7.35-7.45) 07/02/22 23:57 ABG pCO2 37 mmHg (35-46) 07/02/22 23:57 ABG pO2 135 mmHg (80-95) H 07/02/22 23:57 ABG HCO3 25 mmol/L (19-24) H 07/02/22 23:57 ABG O2 Saturation > 100.0 % (90-95) H 07/02/22 23:57 ABG Base Excess 0.5 mEq/L (-9-1.8) 07/02/22 23:57 Feliberto Test Pos (Pos) 07/02/22 23:57 VBG pH 7.36 (7.36-7.41) 07/02/22 19:34 VBG pCO2 49 mmHg (38-50) 07/02/22 19:34 VBG pO2 21 mmHg 07/02/22 19:34 VBG HCO3 28 mmol/L 07/02/22 19:34 VBG O2 Saturation < 60.0 % 07/02/22 19:34 VBG Base Excess 1.5 mEq/L 07/02/22 19:34 Oxygen Given 3 07/02/22 23:57 Sodium 135 mmol/L (136-145) L 07/03/22 07:07 Potassium 4.7 mmol/L (3.5-5.1) 07/03/22 07:07 Chloride 103 mmol/L (98-107) 07/03/22 07:07 Carbon Dioxide 25 mmol/L (21-32) 07/03/22 07:07 Anion Gap 7 (3-11) 07/03/22 07:07 BUN 14 mg/dl (6-23) 07/03/22 07:07 Creatinine 0.99 mg/dl (0.6-1.4) 07/03/22 07:07 Est Cr Clr Drug Dosing 42.2 ml/min 07/03/22 07:07 Est GFR ( Amer) 83.6 ml/min 07/03/22 07:07 Est GFR (Non-Af Amer) 72.1 ml/min 07/03/22 07:07 BUN/Creatinine Ratio 14.1 (10-20) 07/03/22 07:07 Glucose 177 mg/dl (70-99(Fasting)) H 07/03/22 07:07 Calcium 8.8 mg/dl (8.5-10.1) 07/03/22 07:07 Magnesium 2.4 mg/dl (1.7-2.4) 07/03/22 07:07 Total Bilirubin 0.3 mg/dl (0.2-1.0) 07/02/22 18:40 AST 11 U/L (13-39) L 07/02/22 18:40 ALT 10 U/L (7-52) 07/02/22 18:40 Alkaline Phosphatase 131 U/L (34-104) H 07/02/22 18:40 Troponin I High Sens 7.5 pg/ml (0-20) 07/02/22 20:51 B-Natriuretic Peptide 167 pg/ml (0-100) H 07/02/22 19:34 Total Protein 6.6 gm/dl (6.0-8.3) 07/02/22 18:40 Albumin 3.1 gm/dl (3.4-5.0) L 07/02/22 18:40 Globulin 3.5 gm/dl (2.5-4.0) 07/02/22 18:40 Albumin/Globulin Ratio 0.9 (0.9-2) 07/02/22 18:40 Nasal Screen MRSA (PCR) Negative (Negative) 07/03/22 07:10 Ethyl Alcohol mg/dL < 10.0 mg/dl (<10.0) 07/02/22 23:33 Adenovirus (PCR) Not Detected (NotDetected) 07/02/22 19:40 B. pertussis DNA (PCR) Not Detected (NotDetected) 07/02/22 19:40 B.parapertussis DNA PCR Not Detected (NotDetected) 07/02/22 19:40 C. pneumoniae DNA (PCR) Not Detected (NotDetected) 07/02/22 19:40 Coronavirus OC43 (PCR) Not Detected (NotDetected) 07/02/22 19:40 Coronavirus HKU1 (PCR) Not Detected (NotDetected) 07/02/22 19:40 Coronavirus 229E (PCR) Not Detected (NotDetected) 07/02/22 19:40 SARS-CoV-2 (PCR) Not Detected (NotDetected) 07/02/22 19:40 Coronavirus NL63 (PCR) Not Detected (NotDetected) 07/02/22 19:40 Human Metapneumovir PCR Not Detected (NotDetected) 07/02/22 19:40 Influenza Type A (PCR) Not Detected (NotDetected) 07/02/22 19:40 Influenza Type B (PCR) Not Detected (NotDetected) 07/02/22 19:40 M. pneumoniae (PCR) Not Detected (NotDetected) 07/02/22 19:40 Parainfluenza 1 (PCR) Not Detected (NotDetected) 07/02/22 19:40 Parainfluenza 2 (PCR) Not Detected (NotDetected) 07/02/22 19:40 Parainfluenza 3 (PCR) Not Detected (NotDetected) 07/02/22 19:40 Parainfluenza 4 (PCR) Not Detected (NotDetected) 07/02/22 19:40 RSV (PCR) Not Detected (NotDetected) 07/02/22 19:40 Entero/Rhino (PCR) Not Detected (NotDetected) 07/02/22 19:40 Impressions Chest X-Ray 07/02/22 18:53 XR chest 1V portable HISTORY: Dyspnea COMPARISON: Chest 06/20/2022. FINDINGS: Emphysema. No pneumothorax. The heart is normal in size. Left greater than right bibasilar airspace opacities are again noted. These are similar to the prior studies. A small left pleural effusion persists. IMPRESSION: Redemonstration of the left greater than right bibasilar airspace opacities and a small left pleural effusion. ACT 112: Negative or not required by law. Electronically signed by: Madan Henderson M.D. 07/02/2022 7:53 PM Chest CTA 07/02/22 20:27 CT angio chest PE protocol CLINICAL HISTORY: PE TECHNIQUE: Multidetector row helical CT of the chest was performed with angiographic protocol. Coronal and sagittal reformations were obtained. Coronal and sagittal MIPS were obtained from the axial data set and were submitted for review. Automated dose lowering techniques and/or adjustment according to patient size were utilized for this exam. CT DOSE: 393.93 mGy.cm Comparison: Comparison is made to CTA chest 06/20/2022 FINDINGS: Lungs and pleura: Severe emphysematous changes are seen. There is a small left pleural effusion which is new from prior exam. Pneumonia in the left greater than right lower lungs is somewhat increased unchanged from prior exam. There is suggestion of some cavitary changes in the medial aspect of the left lower lobe. Heart and pericardium: Heart size is normal. No pericardial effusion. Vessels: No evidence of pulmonary embolism. Severe atherosclerotic disease is seen. Incidental note is made of prominent atherosclerotic disease in the great vessels with possible hemodynamically significant stenosis in the right common carotid artery, within limits of a nondedicated exam. Mediastinum and sergio: A few calcified lymph nodes are seen. Additional prominent lymph nodes measure up to 1 cm in diameter. Chest wall and lower neck: Unremarkable. Abdomen: A hiatal hernia is seen. Bones: Degenerative changes in the thoracic spine. Compression deformity and T7 appears unchanged from prior exam. IMPRESSION: 1. No pulmonary embolus is seen. 2. Interval mild worsening of left lower lobe predominant pneumonia with reactive lymph nodes. ACT 112: Negative or not required by law. Electronically signed by: Jose Miguel Jiménez M.D. 07/03/2022 6:34 AM Videofluoroscopic Swallow 07/06/22 00:12 FL video swallow CLINICAL HISTORY: 81 years-old Male with r/o aspiration. Acute dysphasia TECHNIQUE: Video fluoroscopic evaluation of swallowing was performed in the AP and lateral projections by the speech pathology staff. The patient is fed thin liquid, mildly thick, pudding and cracker with paste consistencies. FLUOROSCOPY TIME: 2.3 minutes. 612 images were submitted COMPARISON STUDY: CTA chest 07/02/2022 FINDINGS: There is normal hyoid excursion and epiglottic deflection. No significant penetration or aspiration identified. Swallowing function is within normal limits. Multilevel spondylitic spurring of the cervical spine. IMPRESSION: 1. No aspiration identified. 2. Please see the speech pathologist report for detailed findings and recomm endations. ACT 112: Negative or not required by law. Electronically signed by: Rory Forrest M.D. 07/06/2022 2:02 PM Hospital Course (1) Respiratory failure, acute and chronic: Chronic respiratory failure secondary to COPD Recently discharged on 06/26/22, Present on admission with worsening SOB associated yellowish productive cough. CXR showedredemonstration of the left greater than right bibasilar airspace opacities and a small left pleural effusion. CTA chest showed Interval mild worsening of left lower lobe predominant pneumonia with reactive lymph nodes. Received Unasyn, Zithromax and solumedrol in the ER Currently on IV Zosyn and prednisone Blood cx no growth Continue oxygen supplement, neb treatment, guaifenesin, incentive spirometry, flutter valve, Advair, Daliresp Continue chest PT Will need a repeat CXR in 4 weeks as per pulm Plan to change abx to Levaquin and Flagyl for pseudomonal and anaerobic coverage when ready to transition to p.o. Continue prednisone to complete for 5 to 7 days speech consulted plan for video swallow today Continue easy to chew diet Anemia Hgb stable at 9.1 Continue monitor CBC while on subq heparin History of Alcohol abuse Pt denies any history of DT of alcohol withdrawal Last used of alcohol about 4 days ago where he had 2 beers Continue monitor closely for sign of Alcohol withdrawal and DT Severe protein-calorie malnutrition: BMI 16.1 Continue encourage protein intake Continue nutrition consult DVT prophylaxis. Heparin subcu Code status DNR Disposition [facility] Total Time Total Time Spent Total Time Spent (In Minutes): 35 minutes Discharge Plan Discharge Items Patient Disposition: Transfer Inpatient Rehab Fac Reason For Visit: RESP FAILURE Discharge Diagnosis: Respiratory failure, acute and chronic: Multifocal Pneumonia Chronic respiratory failure COPD Anemia Severe protein-calorie malnutrition: Activity: Resume your previous activity Non-emergency contact: Primary Care Provider Call non-emergency contact if: you have any medication questions and your temperature is above 101 Follow-up/Referrals: Kavya Dillard CRNP [Primary Care Provider] - Diet: Regular Diet Texture: Easy to Chew Addtl Attending Provider Instructions: Follow up with your primary care provider once discharge from rehab Continue physical and occupational therapy You will need a repeat Chest Xray in 4 weeks Continue 2-3 L nasal cannula to maintain oxygen saturation between 88 to 92% Continue the course of the antibiotic with Levaquin and Flagyl Continue incentive spirometry and flutter valve Fall precaution Pending Studies at Discharge: No Stand-Alone Forms: My [facility] Skilled Items Patient informed of condition?: Yes DNR: Yes Discharge Level of Care: Acute rehab Communicable Disease: No Discharge Prognosis: Stable Lines: None Urinary Catheter: No Medications and DC Order Prescriptions: New lidocaine 5 % Adhesive Patch,Medicated 1 patch transdermal HS Qty: 5 0RF Incruse Ellipta 62.5 mcg/actuation blister with device 1 inh inhalation DAILY Qty: 30 0RF levofloxacin 750 mg tablet 750 mg PO DAILY Qty: 8 0RF metronidazole 500 mg tablet 500 mg PO TID 8 Days Qty: 24 0RF Continued Daliresp 500 mcg tablet 500 mcg PO QAM folic acid 1 mg tablet 1 mg PO QAM ProAir RespiClick 90 mcg/actuation aerosol powdr breath activated 2 puffs INH Q4H PRN (Reason: shortness of breath or wheezing) thiamine HCl (vitamin B1) 100 mg tablet 100 mg PO QAM cyanocobalamin (vitamin B-12) 100 mcg tablet 100 mcg PO DAILY fluticasone propion-salmeterol [Advair Diskus] 250-50 mcg/dose Blister With Device 1 inh INHALATION BID omeprazole 40 mg Capsule,Delayed Release(Dr/Ec) 40 mg PO DAILYBB acetaminophen [Tylenol Extra Strength] 500 mg Tablet 500 mg PO Q4H PRN (Reason: Pain) levalbuterol HCl [Xopenex] 1.25 mg/3 mL Solution For Nebulization 1.25 mg INHALATION TID multivitamin with minerals Tablet 1 tab PO DAILY ipratropium bromide 0.02 % Solution 2.5 ml INHALATION TID PRN (Reason: Shortness Of Breath Or Wheezing) potassium chloride 20 mEq Tablet Extended Release 20 meq PO DAILY famotidine 20 mg tablet 20 mg PO DAILY PRN (Reason: Heartburn) Discontinued Combivent Respimat 20-100 mcg/actuation mist 1 puff INHALATION QID Discharge Orders: Discharge Order (Routine); Ordered 07/07/22 Ordered By: Alice Hood Admission Data Admit Date/Time: 07/02/22 23:50 Attending Provider: Alice Hood Admit Provider: Jer Desouza Primary Care Provider: Kavya Dillard Other Providers: Jer Desouza ; Drew Del Toro ; Wayne Pierre ; Rickey Ventura ; Roberto Faustin ; Joseph Hernández ; Cecelia Maloney ; [facility] Other Interventions: Discharge Summary Assessment (RN) Last Done: 07/07/22 13:11
== END 2022-07-07 15:05 | DRG 190 ==
LOC: ED 18:32 → 2E 23:50

== ENCOUNTER 2023-03-24 16:44 | Inpatient (IN) ==
[2023-03-24 17:24] LABS: Basophils # (auto) 0.04 K/uL (0.00-0.20); Basophils % (auto) 0.5 %; Eosinophils # (auto) 0.54 K/uL (0.00-0.50); Eosinophils % (auto) 7.4 %; Hematocrit (blood only) 33.6 % (42.0-52.0); Hemoglobin 10.6 g/dl (14.0-18.0); Immature Granulocytes # (auto) 0.02 K/uL (0.01-0.20); Immature Granulocytes % (auto) 0.3 %; Lymphocytes % (auto) 34.3 %; Mean Corpuscular Hemoglobin 27.3 pg (25.0-34.0); Mean Corpuscular Hgb Conc 31.5 g/dL (32.0-36.0); Mean Corpuscular Volume 86.6 fL (80.0-100.0); Mean Platelet Volume 9.7 fL (9.4-12.4); Monocytes # (auto) 0.67 K/uL (0.11-0.59); Monocytes % (auto) 9.2 %; Neutrophils # (auto) 3.51 K/uL (1.40-6.50); Neutrophils % (auto) 48.3 %; Platelet Count 236 K/uL (130-400); RDW Coefficient of Variation 21.1 % (11.5-14.5); RDW Standard Deviation 64.9 fL (36.4-46.3); Red Blood Count 3.88 M/uL (4.70-6.10); White Blood Count 7.28 K/ul (4.8-10.8)
--- NOTE | 2023-03-24 17:33 | XRay Report ---
XR chest 1V portable CLINICAL HISTORY: Chest pain, nonspecific TECHNIQUE: Single frontal radiograph of the chest was obtained. Comparison: Comparison is made to chest radiograph 07/02/2022 FINDINGS: No lines and tubes are seen. The cardiomediastinal silhouette is normal. Extensive emphysematous de jesus ges are seen. A left basilar pneumothorax is seen. IMPRESSION: Left pneumothorax at the lung base. ACT 112: Negative or not required by law. Electronically signed by: Jose Miguel Jiménez M.D. 03/24/2023 5:32 PM
[2023-03-24 17:39] LABS: Albumin Globulin Ratio 1.3 (0.9-2); Albumin Level 3.7 gm/dl (3.4-5.0); BUN Creatinine Ratio 10.2 (10-20); Bilirubin,Total 0.3 mg/dl (0.2-1.0); Creatinine Clr Calc Pharmacy 43.7 ml/min; Est GFR (African American) 74.7 ml/min; Est GFR (Non-African American) 64.5 ml/min; Globulin 2.8 gm/dl (2.5-4.0); Potassium 4.5 mmol/L (3.5-5.1); Total Protein 6.5 gm/dl (6.0-8.3)
[2023-03-24 17:44] LABS: Troponin I High Sensitivity 6.7 pg/ml (0-20)
[2023-03-24 17:46] LABS: Prothrombin Time 10.8 Seconds (9.0-12.0)
[2023-03-24 18:13] LABS: Anisocytosis Present
--- NOTE | 2023-03-24 18:17 | Emergency Department Note ---
Impression & Plan Left-sided chest pain, Pneumothorax on left ED Provider Note HISTORY OF PRESENT ILLNESS: Patient is an 82-year-old male presenting with left-sided chest pain. Patient reports that the pain started 2 to 3 days ago. He wears 3 L nasal nasal cannula at baseline. He reports the chest pain started out of the blue and seem to start in his left lower chest and radiates up into his left armpit. He denies any history of DVT or PE. He is not on any anticoagulation. Denies any history of cardiac stents. He states the pain has been intermittent over the last few days. Does seem to be worse when he gets up and walks around or tries to take a deep breath. Patient denies any trauma or recent falls. ROS: as above PHYSICAL EXAM: Constitutional: Patient appears in no acute distress. HENT: Head: Normocephalic and atraumatic. Eyes: EOMI, PERRL Mouth/Throat: Mucous membranes moist. Neck: Trachea midline. Neck supple. Cardiovascular: RRR, No murmurs, rubs or gallops. Intact distal pulses. Pulmonary/Chest: No respiratory distress. Decreased breath sounds in left lower lung field. Abdominal: Abdomen soft, no tenderness, rebound or guarding. Musculoskeletal: No edema, tenderness or deformity noted. Skin: Warm and dry. No rash, erythema, pallor or cyanosis Psychiatric: Appropriate mood and affect for situation. Neurological: Alert and keenly responsive. CN II-XII grossly intact, moving all extremities equally and fully. MDM: - Vitals signs showed hypertension. - History obtained via patient. Patient presents with left-sided chest pain. Patient reports the pain started 2 to 3 days ago. He states that left lower lateral chest pain that seems to radiate up into his armpit. Reports the pain is intermittent but seems to get worse when he takes a deep breath or gets up and walks around. Does report worsening shortness of breath. Per his baseline 3 L nasal cannula for history history of. - Chronic conditions affecting care: COPD (on 3L NC); HTN - Differential diagnoses include, but are not limited to: Congestive heart failure; acute coronary syndrome; COPD/asthma exacerbation; pulmonary edema; pulmonary embolism; pneumonia; pneumothorax; viral syndrome - Order placed for continuous cardiac monitoring. At this time, monitor showed rate of 90 bpm with normal sinus rhythm, per my interpretation. - External medical records reviewed. EMS run sheet was reviewed. Patient was vitally stable in route. No medications were given prehospital. - EKG reviewed by myself showed normal sinus rhythm. Rate 73 bpm. 396. No acute ischemic changes - Laboratory workup interpreted by myself showed normal WBC; stable electrolytes; normal troponin - CXR shows left basilar pneumothorax, per my interpretation - Patient is vitally stable and satting 100% on his baseline 3 L nasal cannula. I do not feel that he requires a chest tube at this time for small pneumothorax. - Patient's chest pain is likely secondary to his pneumothorax. - Discussed case with livestock ranch hand on-call, Dr. Ventura, who agreed with admission and repeat imaging in AM. - Discussion was had with social service agency director about patient's case and need for admission - Hospitalist consulted for admission - Patient admitted to [facility] service for further evaluation and management. ASSESSMENT AND PLAN: Diagnosis: Left-sided chest pain; pneumothorax on left Plan: admit Past Med/Surg History Medical History (Updated 03/24/23 @ 18:41 by Deja Sullivan MD) Acute and chronic respiratory failure Alcohol abuse Chronic obstructive pulmonary disease Chronic respiratory failure Chronic respiratory failure with hypoxia, on home oxygen therapy COPD exacerbation Elevated troponin I level Fibrosis of lung GERD with esophagitis Goals of care, counseling/discussion History of alcohol abuse History of tobacco use Hypomagnesemia Multifocal pneumonia On home oxygen therapy WEARS O2 AT 2L CONT. Oxygen dependent Pneumonia Pulmonary hypertension Surgical History History of right cataract surgery History of tooth extraction Family History Mother Diverticulitis Father COPD (chronic obstructive pulmonary disease) Dad was a smoker Social History Smoking Status: Former smoker Tobacco Type: E-cigarettes / Vaping Second Hand Exposure: Yes; Do You Dip or Chew Tobacco: No; Hx Alcohol Use: Yes Alcohol type: beer Hx Substance Use: No Preferred Language: Khmer Communication Ability: Effective City Editor Required: No Beliefs That Will Affect Care: None marital status: Current Living Situation: Spouse Feels Safe at Home: Yes Assistive Devices: Cane and Oxygen - Continuous Allergies Allergies Allergy/AdvReac Type Severity Reaction Status Date / Time No Known Allergies Allergy Verified 07/02/22 19:29 Home Meds Home Medications Medication Instructions Recorded Confirmed albuterol sulfate 90 mcg/actuation 2 puffs inhalation Q4H PRN 04/11/19 07/02/22 breath activated powder inhaler shortness of breath or wheezing (ProAir RespiClick) folic acid 1 mg tablet 1 mg PO QAM 04/11/19 07/02/22 roflumilast 500 mcg tablet 500 mcg PO QAM 04/11/19 07/02/22 (Daliresp) thiamine HCl (vitamin B1) 100 mg 100 mg PO QAM 04/11/19 07/02/22 tablet cyanocobalamin (vitamin B-12) 100 100 mcg PO DAILY 08/23/21 07/02/22 mcg tablet fluticasone 250 mcg-salmeterol 50 1 inh inhalation BID 08/23/21 07/02/22 mcg/dose blistr powdr for inhalation (Advair Diskus) acetaminophen 500 mg tablet 500 mg PO Q4H PRN Pain 09/27/21 07/02/22 (Tylenol Extra Strength) ipratropium bromide 0.02 % 2.5 ml inhalation TID PRN 09/27/21 07/02/22 solution for inhalation Shortness Of Breath Or Wheezing levalbuterol HCl 1.25 mg/3 mL 1.25 mg inhalation TID 09/27/21 07/02/22 solution for nebulization (Xopenex) multivitamin with minerals 1 tab PO DAILY 09/27/21 07/02/22 omeprazole 40 mg capsule,delayed 40 mg PO DAILYBB 09/27/21 07/02/22 release potassium chloride 20 mEq 20 meq PO DAILY 09/27/21 07/02/22 tablet,extended release famotidine 20 mg tablet 20 mg PO DAILY PRN Heartburn 06/20/22 07/02/22 Previous Rx's Medication Instructions Recorded levofloxacin 750 mg tablet 750 mg PO DAILY #8 tabs 07/07/22 lidocaine 5 % topical patch 1 patch transdermal HS #5 ea 07/07/22 umeclidinium 62.5 mcg/actuation 1 inh inhalation DAILY #30 ea 07/07/22 blister powder for inhalation (Incruse Ellipta) Results & Data (ED) Vital Signs Vital Signs - 24 hr 03/24/23 16:50 03/24/23 16:50 03/24/23 16:50 Temperature 36.7 C Temperature Source Oral Oral Pulse Rate 90 Pulse Rate from SpO2 Sensor Respiratory Rate 16 Respiratory Effort / Characteristics Short of Breath Respiratory Depth Normal Blood Pressure 153/109 H Blood Pressure Mean 123 Blood Pressure Position Sitting Pulse Oximetry 97 Oxygen Delivery Method Nasal Cannula Nasal Cannula Oxygen Flow Rate 3 Sepsis Recent Fever Within 48 Hours No Sepsis New/Unexplained Change in Mental Status No Sepsis Action Taken by Nursing No Action Required 03/24/23 16:47 03/24/23 17:04 03/24/23 16:47 Temperature Temperature Source Pulse Rate 73 Pulse Rate from SpO2 Sensor Respiratory Rate Respiratory Effort / Characteristics Respiratory Depth Blood Pressure 153/109 H Blood Pressure Mean 120 Blood Pressure Position Pulse Oximetry Oxygen Delivery Method Nasal Cannula Oxygen Flow Rate Sepsis Recent Fever Within 48 Hours Sepsis New/Unexplained Change in Mental Status Sepsis Action Taken by Nursing 03/24/23 16:48 03/24/23 17:00 03/24/23 17:01 Temperature Temperature Source Pulse Rate 81 77 79 Pulse Rate from SpO2 Sensor 76 79 64 Respiratory Rate 19 20 25 H Respiratory Effort / Characteristics Respiratory Depth Blood Pressure Blood Pressure Mean Blood Pressure Position Pulse Oximetry 90 99 87 L Oxygen Delivery Method Oxygen Flow Rate Sepsis Recent Fever Within 48 Hours Sepsis New/Unexplained Change in Mental Status Sepsis Action Taken by Nursing 03/24/23 17:01 03/24/23 17:30 03/24/23 17:30 Temperature Temperature Source Pulse Rate 64 Pulse Rate from SpO2 Sensor 63 Respiratory Rate 18 Respiratory Effort / Characteristics Respiratory Depth Blood Pressure 148/45 H 120/59 L Blood Pressure Mean 100 78 Blood Pressure Position Pulse Oximetry 99 Oxygen Delivery Method Oxygen Flow Rate Sepsis Recent Fever Within 48 Hours Sepsis New/Unexplained Change in Mental Status Sepsis Action Taken by Nursing 03/24/23 18:00 03/24/23 18:02 03/24/23 18:02 Temperature Temperature Source Pulse Rate 64 66 Pulse Rate from SpO2 Sensor 65 Respiratory Rate 25 H 23 Respiratory Effort / Characteristics Respiratory Depth Blood Pressure 130/76 Blood Pressure Mean 101 Blood Pressure Position Pulse Oximetry 100 100 Oxygen Delivery Method Oxygen Flow Rate Sepsis Recent Fever Within 48 Hours Sepsis New/Unexplained Change in Mental Status Sepsis Action Taken by Nursing 03/24/23 18:30 Temperature Temperature Source Pulse Rate 65 Pulse Rate from SpO2 Sensor 64 Respiratory Rate 22 Respiratory Effort / Characteristics Respiratory Depth Blood Pressure Blood Pressure Mean Blood Pressure Position Pulse Oximetry 100 Oxygen Delivery Method Oxygen Flow Rate Sepsis Recent Fever Within 48 Hours Sepsis New/Unexplained Change in Mental Status Sepsis Action Taken by Nursing Laboratory Data 03/24/23 16:54 03/24/23 16:54 Lab Results 03/24/23 03/24/23 03/24/23 Range/Units 16:54 16:54 16:54 WBC 7.28 (4.8-10.8) K/ul RBC 3.88 L (4.70-6.10) M/uL Hgb 10.6 L (14.0-18.0) g/dl Hct 33.6 L (42.0-52.0) % MCV 86.6 (80.0-100.0) fL MCH 27.3 (25.0-34.0) pg MCHC 31.5 L (32.0-36.0) g/dL RDW Std Deviation 64.9 H (36.4-46.3) fL RDW Coeff of Julissa 21.1 H (11.5-14.5) % Plt Count 236 (130-400) K/uL MPV 9.7 (9.4-12.4) fL Immature Gran % (Auto) 0.3 % Neut % (Auto) 48.3 % Lymph % (Auto) 34.3 % Churchill % (Auto) 9.2 % Eos % (Auto) 7.4 % Baso % (Auto) 0.5 % Neut # (Auto) 3.51 (1.40-6.50) K/uL Lymph # (Auto) 2.50 (1.20-3.40) K/uL Churchill # (Auto) 0.67 H (0.11-0.59) K/uL Eos # (Auto) 0.54 H (0.00-0.50) K/uL Baso # (Auto) 0.04 (0.00-0.20) K/uL Immature Gran # (Auto) 0.02 (0.01-0.20) K/uL Anisocytosis Present PT 10.8 (9.0-12.0) Seconds INR 1.0 (0.9-1.1) Sodium 141 (136-145) mmol/L Potassium 4.5 (3.5-5.1) mmol/L Chloride 110 H (98-107) mmol/L Carbon Dioxide 26 (21-32) mmol/L Anion Gap 5 (3-11) BUN 11 (6-23) mg/dl Creatinine 1.08 (0.6-1.4) mg/dl Est Cr Clr Drug Dosing 43.7 ml/min Est GFR ( Amer) 74.7 ml/min Est GFR (Non-Af Amer) 64.5 ml/min BUN/Creatinine Ratio 10.2 (10-20) Glucose 113 H (70-99(Fasting)) mg/dl Calcium 9.0 (8.6-10.3) mg/dl Total Bilirubin 0.3 (0.2-1.0) mg/dl AST 35 (13-39) U/L ALT 47 (7-52) U/L Alkaline Phosphatase 536 H (34-104) U/L Troponin I High Sens 6.7 (0-20) pg/ml Total Protein 6.5 (6.0-8.3) gm/dl Albumin 3.7 (3.4-5.0) gm/dl Globulin 2.8 (2.5-4.0) gm/dl Albumin/Globulin Ratio 1.3 (0.9-2) Lipase 21 (11-82) U/L Imaging Data Radiologist's Impression: Chest X-Ray 03/24/23 16:52 XR chest 1V portable CLINICAL HISTORY: Chest pain, nonspecific TECHNIQUE: Single frontal radiograph of the chest was obtained. Comparison: Comparison is made to chest radiograph 07/02/2022 FINDINGS: No lines and tubes are seen. The cardiomediastinal silhouette is normal. Extensive emphysematous changes are seen. A left basilar pneumothorax is seen. IMPRESSION: Left pneumothorax at the lung base. ACT 112: Negative or not required by law. Electronically signed by: Jose Miguel Jiménez M.D. 03/24/2023 5:32 PM Discharge Plan Visit Data Chief Complaint: Chest Pain Stated Complaint: L CHEST PAIN ED Provider: Deja Sullivan Discharge Problem: Left-sided chest pain, Pneumothorax on left Forms Stand Alone Forms: My [facility] [employer] Prescriptions Prescriptions: No Action Daliresp 500 mcg tablet 500 mcg PO QAM folic acid 1 mg tablet 1 mg PO QAM ProAir RespiClick 90 mcg/actuation aerosol powdr breath activated 2 puffs INH Q4H PRN (Reason: shortness of breath or wheezing) thiamine HCl (vitamin B1) 100 mg tablet 100 mg PO QAM cyanocobalamin (vitamin B-12) 100 mcg tablet 100 mcg PO DAILY fluticasone propion-salmeterol [Advair Diskus] 250-50 mcg/dose Blister With Device 1 inh INHALATION BID omeprazole 40 mg Capsule,Delayed Release(Dr/Ec) 40 mg PO DAILYBB acetaminophen [Tylenol Extra Strength] 500 mg Tablet 500 mg PO Q4H PRN (Reason: Pain) levalbuterol HCl [Xopenex] 1.25 mg/3 mL Solution For Nebulization 1.25 mg INHALATION TID multivitamin with minerals Tablet 1 tab PO DAILY ipratropium bromide 0.02 % Solution 2.5 ml INHALATION TID PRN (Reason: Shortness Of Breath Or Wheezing) potassium chloride 20 mEq Tablet Extended Release 20 meq PO DAILY famotidine 20 mg tablet 20 mg PO DAILY PRN (Reason: Heartburn) lidocaine 5 % Adhesive Patch,Medicated 1 patch transdermal HS Qty: 5 0RF Incruse Ellipta 62.5 mcg/actuation blister with device 1 inh inhalation DAILY Qty: 30 0RF levofloxacin 750 mg tablet 750 mg PO DAILY Qty: 8 0RF Referrals Referrals: Kavya Dillard CRNP [Primary Care Provider] -
--- NOTE | 2023-03-24 19:00 | History & Physical Report ---
Date of Service March 24, 2023 Assessment & Plan (1) Pneumothorax on left: (2) Left-sided chest pain: Plan: Patient is 82-year-old male with PMH COPD, chronic hypoxic respiratory failure on chronic 2.5 L oxygen, chronic anemia, GERD, alcohol use, history of recurrent C. difficile presented to ER with complaint of chest pain x3 days. In ER vitals stable, no hypoxia on chronic 2.5L oxygen via NC. No leukocytosis. HS troponin negative CXR: + Pneumothorax left lower lobe per my interpretation. Radiologist read as left pneumothorax at the lung base. ER physician contacted on-call product support analyst who recommended monitoring and repeat CXR in a.m. Patient currently comfortable at rest Continue home oxygen CXR in a.m. Pulmonology consult (3) Chronic respiratory failure with hypoxia, on home oxygen therapy: (4) COPD (chronic obstructive pulmonary disease): Plan: On chronic 2.5 L oxygen at rest and 3 L with exertion No signs COPD exacerbation at this time Continue home oxygen. 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 At baseline Continue ferrous sulfate, B12, folic acid supplements (7) GERD (gastroesophageal reflux disease): Plan: Continue PPI (8) Alcohol use: Plan: 2 drinks daily. Denies history of alcohol withdrawal DVT Prophylaxis SCDs for now in case of procedure DNR/DNI as per discussion with pt Follows with Kavya TUCKER and [facility] for routine care Pt was seen and care coordinated with Dr Saab. See addendum History of Present Illness Chief Complaint: CP Primary Care Provider: GARRETT Kaiser Patient is 82-year-old male with PMH COPD, chronic hypoxic respiratory failure on chronic 2.5 L oxygen, chronic anemia, GERD, alcohol use, history of recurrent C. difficile presented to ER with complaint of chest pain x3 days. Patient reports chronic shortness of breath, worse with exertion at baseline. Minimally ambulatory secondary to exertional dyspnea. Uses walker at baseline. Patient reports chronic cough at baseline with chronic green color sputum production. Patient states couple weeks ago thought he may have had the flu he had body aches and URI symptoms. Patient reports nasal congestion and myalgia symptoms resolved and feels breathing is at baseline this week. Denies any fevers, chills. Denies any injury, trauma or falls. Patient reports onset of left sided chest pain 3 days ago with walking, sitting up or standing. At rest denies any chest pain. He was instructed by [facility] provider to be evaluated in ER yesterday secondary to symptoms however patient waited to be evaluated until today. Has chronic loose/soft stools with 4-5 bowel movements daily. Is on vancomycin daily. Denies fever/chills, diaphoresis, N/V/D/C, GIMENEZ, dizziness, syncope, vision changes, neck pain, palpitations, hemoptysis, sore throat, choking, otalgia, abdominal pain, paresthesias, extremity weakness, extremity edema, rashes, urinary symptoms. Allergies Allergy/AdvReac Type Severity Reaction Status Date / Time No Known Allergies Allergy Verified 07/02/22 19:29 Home Medications Medication Instructions Recorded Confirmed Type albuterol sulfate 90 mcg/actuation 2 puffs inhalation Q4H PRN 04/11/19 03/24/23 History breath activated powder inhaler shortness of breath or wheezing (ProAir RespiClick) folic acid 1 mg tablet 1 mg PO QAM 04/11/19 03/24/23 History roflumilast 500 mcg tablet 500 mcg PO QAM 04/11/19 03/24/23 History (Daliresp) thiamine HCl (vitamin B1) 100 mg 100 mg PO QAM 04/11/19 03/24/23 History tablet cyanocobalamin (vitamin B-12) 100 100 mcg PO DAILY 08/23/21 03/24/23 History mcg tablet acetaminophen 500 mg tablet 500 mg PO Q4H PRN Pain 09/27/21 03/24/23 History (Tylenol Extra Strength) ipratropium bromide 0.02 % 2.5 ml inhalation TID PRN 09/27/21 03/24/23 History solution for inhalation Shortness Of Breath Or Wheezing levalbuterol HCl 1.25 mg/3 mL 1.25 mg inhalation TID 09/27/21 03/24/23 History solution for nebulization (Xopenex) multivitamin with minerals 1 tab PO DAILY 09/27/21 03/24/23 History omeprazole 40 mg capsule,delayed 40 mg PO DAILYBB 09/27/21 03/24/23 History release potassium chloride 20 mEq 20 meq PO DAILY 09/27/21 03/24/23 History tablet,extended release famotidine 20 mg tablet 20 mg PO DAILY PRN Heartburn 06/20/22 03/24/23 History Saccharomyces boulardii 250 mg 250 mg PO DAILY 03/24/23 03/24/23 History capsule (Florastor) ferrous sulfate 325 mg (65 mg 325 mg PO BID 03/24/23 03/24/23 History iron) tablet fluticasone fur. 100 mcg-umeclid 1 inh inhalation DAILY 03/24/23 03/24/23 History 62.5 mcg-vilant 25 mcg inhalat.powder (Trelegy Ellipta) vancomycin 125 mg capsule 125 mg PO DAILY 03/24/23 03/24/23 History Past Med/Surg History Medical History Acute and chronic respiratory failure Alcohol abuse Chronic obstructive pulmonary disease Chronic respiratory failure Chronic respiratory failure with hypoxia, on home oxygen therapy COPD exacerbation Elevated troponin I level Fibrosis of lung GERD with esophagitis Goals of care, counseling/discussion History of alcohol abuse History of tobacco use Hypomagnesemia Multifocal pneumonia On home oxygen therapy WEARS O2 AT 2L CONT. Oxygen dependent Pneumonia Pulmonary hypertension Surgical History History of right cataract surgery History of tooth extraction Family History Mother Diverticulitis Father COPD (chronic obstructive pulmonary disease) Dad was a smoker Social History Smoking Status: Former smoker Tobacco Type: E-cigarettes / Vaping Second Hand Exposure: Yes; Do You Dip or Chew Tobacco: No; Hx Alcohol Use: Yes Alcohol type: beer Hx Substance Use: No Preferred Language: Yakut Communication Ability: Effective Retail Business Development Manager Required: No Beliefs That Will Affect Care: None marital status: Current Living Situation: Spouse Feels Safe at Home: Yes Assistive Devices: Cane and Oxygen - Continuous Review of Systems Review of Systems: All systems reviewed & are unremarkable except as noted in HPI & below Physical Exam Physical Exam: General: no acute distress sitting in bed on 2.5L oxygen, chronic ill appearing elderly male, thin Head: normocephalic, atraumatic Eyes: conjunctiva non-injected, anicteric ENT: normal inspection external ears, nose, mucous membranes moist Neck: supple, trachea midline Lungs: no respiratory distress on 2.5L via NC, R: 18, slightly diminished breath sounds left base, no wheezing/rhonchi/rales CV: RRR, no murmur, no pretibial edema Abd: normal BS, soft, non-tender Ext: no cyanosis, no calf tenderness Neuro: A&O x 3, no focal deficits noted, normal affect Skin: warm, dry Results & Data Results & Data Vital Signs (Past 12 Hours) Vital Signs Temp Pulse Resp BP Pulse Ox O2 Del Method O2 Flow Rate 03/24/23 18:30 65 22 100 03/24/23 18:02 130/76 03/24/23 18:02 66 23 100 03/24/23 18:00 64 25 H 100 03/24/23 17:30 64 18 99 03/24/23 17:30 120/59 L 03/24/23 17:01 148/45 H 03/24/23 17:01 79 25 H 87 L 03/24/23 17:00 77 20 99 03/24/23 16:48 81 19 90 03/24/23 16:47 153/109 H 03/24/23 17:04 Nasal Cannula 03/24/23 16:47 73 03/24/23 16:50 Nasal Cannula 03/24/23 16:50 36.7 C 90 16 153/109 H 97 Nasal Cannula 3 Laboratory Results Short CBC 03/24/23 Range/Units 16:54 WBC 7.28 (4.8-10.8) K/ul Hgb 10.6 L (14.0-18.0) g/dl Hct 33.6 L (42.0-52.0) % Plt Count 236 (130-400) K/uL BMP 03/24/23 16:54 Sodium 141 Potassium 4.5 Chloride 110 H Carbon Dioxide 26 BUN 11 Creatinine 1.08 Glucose 113 H Calcium 9.0 Liver Function 03/24/23 Range/Units 16:54 Total Bilirubin 0.3 (0.2-1.0) mg/dl AST 35 (13-39) U/L ALT 47 (7-52) U/L Alkaline Phosphatase 536 H (34-104) U/L Albumin 3.7 (3.4-5.0) gm/dl Diagnostic Findings Chest X-Ray 03/24/23 16:52 XR chest 1V portable CLINICAL HISTORY: Chest pain, nonspecific TECHNIQUE: Single frontal radiograph of the chest was obtained. Comparison: Comparison is made to chest radiograph 07/02/2022 FINDINGS: No lines and tubes are seen. The cardiomediastinal silhouette is normal. Extensive emphysematous changes are seen. A left basilar pneumothorax is seen. IMPRESSION: Left pneumothorax at the lung base. ACT 112: Negative or not required by law. Electronically signed by: Jose Miguel Jiménez M.D. 03/24/2023 5:32 PM ECG Additional Comments: EKG: Sinus rhythm, rate 73, PAC, T wave inversion in septal leads per my interpretation Supervising Physician Co-Signing Physician Notes I have seen and discussed the case with the collaborating PA-C. I agree with the above H&P. I have reviewed and confirmed the patients medical history, the findings on physical examination, and the patients diagnosis and treatment plan with [facility] and agree with the information documented. In short, Mr. Abreu is an 82 year old gentleman with severe COPD, chronic hypoxic respiratory faliure on home O2, severe protein calorie malnutrion who is admitted due to left pleuritic chest pain that appears to be secondary to left pneumothorax. Patient has extensive emphysema, and pneumo likely 2/2 bleb rupture. PE with decreased breathsounds in left basilar lobe. Labs fairly unremarkable. Sating well on home O2 with stable hemodynamics. Discussion with Pulm was had between ED physician--no indication for tube at this time, continue supportive O2 and repeat imaging in am. Rest of plan as above.
[2023-03-24] MEDS ORDERED: POLYETHYLENE (MIRALAX) 17 GM PACK PO PRN (21:25)
[2023-03-24] MEDS ORDERED: XOPENEX/ATROVENT 1.25mg/0.5MG NEB COMBO NEB SCH (21:25)
[2023-03-24] MEDS ORDERED: ONDANSETRON INJ 2 MG/ML 2 ML VIAL IV PRN (21:25)
[2023-03-24] MEDS ORDERED: FAMOTIDINE 20 MG TAB PO PRN (21:25)
[2023-03-24] MEDS: LEVALBUTEROL 1.25 MG/3 ML NEB NEB SCH (22:22)
[2023-03-24] MEDS: IPRATROPIUM BROMIDE NEB SOLN 0.02% 2.5 ML VIAL INH SCH (22:22)
[2023-03-25] MEDS: ACETAMINOPHEN 325 MG TAB PO PRN ×4 (01:11→22:10)
[2023-03-25 04:43] LABS: Basophils # (auto) 0.03 K/uL (0.00-0.20); Basophils % (auto) 0.4 %; Eosinophils # (auto) 0.48 K/uL (0.00-0.50); Eosinophils % (auto) 5.9 %; Hematocrit (blood only) 32.1 % (42.0-52.0); Immature Granulocytes # (auto) 0.02 K/uL (0.01-0.20); Immature Granulocytes % (auto) 0.2 %; Lymphocytes # (auto) 1.58 K/uL (1.20-3.40); Lymphocytes % (auto) 19.5 %; Mean Corpuscular Hemoglobin 27.2 pg (25.0-34.0); Mean Corpuscular Hgb Conc 31.2 g/dL (32.0-36.0); Mean Corpuscular Volume 87.2 fL (80.0-100.0); Monocytes # (auto) 0.73 K/uL (0.11-0.59); Neutrophils # (auto) 5.27 K/uL (1.40-6.50); Platelet Count 237 K/uL (130-400); RDW Coefficient of Variation 20.7 % (11.5-14.5); RDW Standard Deviation 64.5 fL (36.4-46.3); Red Blood Count 3.68 M/uL (4.70-6.10); White Blood Count 8.11 K/ul (4.8-10.8)
[2023-03-25 05:01] LABS: Albumin Globulin Ratio 1.4 (0.9-2); Albumin Level 3.5 gm/dl (3.4-5.0); Bilirubin,Total 0.6 mg/dl (0.2-1.0); Calcium 8.9 mg/dl (8.6-10.3); Creatinine Clr Calc Pharmacy 47.2 ml/min; Est GFR (Non-African American) 70.8 ml/min; Globulin 2.5 gm/dl (2.5-4.0); Potassium 4.6 mmol/L (3.5-5.1)
[2023-03-25 05:04] LABS: Anisocytosis Present
[2023-03-25] MEDS: PANTOprazole 40 MG TAB PO SCH (06:19)
--- NOTE | 2023-03-25 06:41 | Electrocardiogram Report ---
Test Reason : Blood Pressure : / mmHG Vent. Rate : 073 BPM Atrial Rate : 073 BPM P-R Int : 154 ms QRS Dur : 076 ms QT Int : 360 ms P-R-T Axes : 052 080 075 degrees QTc Int : 396 ms Sinus rhythm with Premature atrial complexes Otherwise normal ECG When compared with ECG of 02-JUL-2022 18:55, Premature ventricular complexes are no longer Present Premature atrial complexes are now Present Confirmed by Paul Wayne ([id number]) on 03/25/2023 6:41:13 AM Referred By: REFERRED SELF Confirmed By:Paul Wayne
[2023-03-25] MEDS: IPRATROPIUM BROMIDE NEB SOLN 0.02% 2.5 ML VIAL INH SCH ×3 (07:04→19:19)
[2023-03-25] MEDS: LEVALBUTEROL 1.25 MG/3 ML NEB NEB SCH ×3 (07:09→19:19)
--- NOTE | 2023-03-25 08:51 | Pulmonary Consultation ---
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 He is stable at this present time with his typical oxygen needs of 2 to 2.5 L of oxygen per minute via nasal cannula. If he clinically deteriorates or pneumothorax enlarges, will place a small bore chest tube. Upon review of prior CT imaging it appears that he has a bleb in the left lower lobe that likely spontaneously ruptured. The pneumothorax appears loculated at this time. We will repeat a chest x-ray tomorrow morning. If clinical picture is stable, would recommend discharge and close follow-up with outpatient pulmonology and thoracic surgery for consideration of pleurodesis or blebectomy. Otherwise continue his home inhalers and supplemental oxygen. No signs of COPD exacerbation at this time. Thank you for allowing me to participate in the care of the patient. We will continue to follow with you. History of Present Illness Reason for Consultation: Left pneumothorax Attending Physician: Baljit Cope MD History of Present Illness 82-year-old male with history of chronic hypoxemic respiratory failure 2-1/2 L of oxygen, severe emphysema, alcohol use, prior C. difficile and malnutrition who presented to the hospital due to chest pain that started about 3 days ago. He has chronic shortness of breath with minimal exertion at baseline. He has a chronic cough which is productive of sputum. His mobility is limited at baseline he uses a walker. Chest x-ray obtained yesterday revealed a small basilar pneumothorax on the left. Repeat chest x-ray today with similar findings. He is saturating 99% on 2 L. I independently reviewed the chest x-rays and agree with the radiology interpretation. I also independently reviewed the chest CTA from June 2022 which revealed a left lower lobe pneumonia with diffuse very severe centrilobular emphysema. There appears to be a bleb in the left lower lobe. Patient comfortable at present. Eating breakfast. Denies any shortness of breath while resting. Mild pleuritic left-sided pain upon deep breathing. His home respiratory medications include Daliresp 500 mcg daily, Trelegy and albuterol as needed. He had a PFT back in 2016 which revealed a severe airflow obstruction with an FEV1 of 40%. His last pulmonary medicine visit was 10/09/2020 in the clinic and it was noted that he was dependent on continuous oxygen at the time. He is a former smoker and quit in 2015. He smoked from -2015 and roughly 1.5 packs/day. Allergies Allergy/AdvReac Type Severity Reaction Status Date / Time No Known Allergies Allergy Verified 07/02/22 19:29 Home Medications Medication Instructions Recorded Confirmed Type albuterol sulfate 90 mcg/actuation 2 puffs inhalation Q4H PRN 04/11/19 03/24/23 History breath activated powder inhaler shortness of breath or wheezing (ProAir RespiClick) folic acid 1 mg tablet 1 mg PO QAM 04/11/19 03/24/23 History roflumilast 500 mcg tablet 500 mcg PO QAM 04/11/19 03/24/23 History (Daliresp) thiamine HCl (vitamin B1) 100 mg 100 mg PO QAM 04/11/19 03/24/23 History tablet cyanocobalamin (vitamin B-12) 100 100 mcg PO DAILY 08/23/21 03/24/23 History mcg tablet acetaminophen 500 mg tablet 500 mg PO Q4H PRN Pain 09/27/21 03/24/23 History (Tylenol Extra Strength) ipratropium bromide 0.02 % 2.5 ml inhalation TID PRN 09/27/21 03/24/23 History solution for inhalation Shortness Of Breath Or Wheezing levalbuterol HCl 1.25 mg/3 mL 1.25 mg inhalation TID 09/27/21 03/24/23 History solution for nebulization (Xopenex) multivitamin with minerals 1 tab PO DAILY 09/27/21 03/24/23 History omeprazole 40 mg capsule,delayed 40 mg PO DAILYBB 09/27/21 03/24/23 History release potassium chloride 20 mEq 20 meq PO DAILY 09/27/21 03/24/23 History tablet,extended release famotidine 20 mg tablet 20 mg PO DAILY PRN Heartburn 06/20/22 03/24/23 History Saccharomyces boulardii 250 mg 250 mg PO DAILY 03/24/23 03/24/23 History capsule (Florastor) ferrous sulfate 325 mg (65 mg 325 mg PO BID 03/24/23 03/24/23 History iron) tablet fluticasone fur. 100 mcg-umeclid 1 inh inhalation DAILY 03/24/23 03/24/23 History 62.5 mcg-vilant 25 mcg inhalat.powder (Trelegy Ellipta) vancomycin 125 mg capsule 125 mg PO DAILY 03/24/23 03/24/23 History Patient History Medical History (Updated 03/25/23 @ 08:50 by Rickey Ventura MD) Acute and chronic respiratory failure Alcohol abuse Chronic obstructive pulmonary disease Chronic respiratory failure Chronic respiratory failure with hypoxia, on home oxygen therapy COPD exacerbation Elevated troponin I level Emphysematous COPD Fibrosis of lung GERD with esophagitis Goals of care, counseling/discussion History of alcohol abuse History of tobacco use Hypomagnesemia Multifocal pneumonia On home oxygen therapy WEARS O2 AT 2L CONT. Oxygen dependent Pneumonia Pulmonary hypertension Secondary spontaneous pneumothorax Surgical History History of right cataract surgery History of tooth extraction Family History Mother Diverticulitis Father COPD (chronic obstructive pulmonary disease) Dad was a smoker Social History Smoking Status: Former smoker Tobacco Type: Cigarettes Second Hand Exposure: No; Do You Dip or Chew Tobacco: No; Tobacco Cessation Education Requested by Patient: No Hx Alcohol Use: Yes Alcohol type: beer and hard liquor Hx Substance Use: No Preferred Language: Lithuanian Communication Ability: Effective Seasonal Package Handler Required: No Beliefs That Will Affect Care: None marital status: Current Living Situation: Spouse Current Living Situation Comment: at home with Other Information That Helps Us Care for You: No Feels Safe at Home: Yes Safety Concerns: Feels Safe At This Time Assistive Devices: Oxygen - Continuous Review of Systems Review of Systems: All systems reviewed & are unremarkable except as noted in HPI & below Physical Exam Physical Exam: Constitutional: Cachectic appearing male no apparent distress. Eyes: Pupils are equal round and reactive to light. Conjunctivae are normal. Anicteric sclera. Ears nose, mouth and throat: Mallampati class 1. Normal posterior oropharynx. Uvula is midline. Neck: Trachea is midline. Visual inspection is normal. Respiratory: Prolonged phase of exhalation. Mild crackles bibasilarly. Cardiovascular: Regular rate and rhythm. No murmurs. No edema. Gastrointestinal: Normal bowel sounds, soft, nontender and nondistended. No hepatosplenomegaly noted. Musculoskeletal: No cyanosis. Patient is able to move all extremities. 4/5 strength in the upper extremities. Skin: No rashes, warm dry and intact. Neurologic: No obvious focal neurological deficits seen. Psychiatric: Alert and oriented x3 with a euthymic affect. Results & Data Results & Data Vital Signs (Past 12 Hours) Vital Signs Pulse Pulse Resp BP Pulse Ox Pulse Ox O2 Del Method 03/25/23 07:06 80 03/25/23 07:10 70 18 99 Nasal Cannula 03/25/23 05:00 91 H 23 125/73 100 Nasal Cannula 03/25/23 04:30 78 24 134/74 99 Nasal Cannula 03/25/23 04:00 68 26 H 125/87 100 Nasal Cannula 03/25/23 03:30 83 22 133/64 98 Nasal Cannula 03/25/23 03:00 79 25 H 112/55 L 99 Nasal Cannula 03/25/23 02:30 78 19 99 Nasal Cannula 03/25/23 02:30 123/71 03/25/23 02:00 67 24 100 Nasal Cannula 03/25/23 02:00 128/69 03/25/23 01:32 138/87 03/25/23 01:32 87 22 98 03/25/23 01:30 79 18 95 03/25/23 01:13 82 23 136/112 H 98 03/25/23 00:30 87 25 H 146/70 H 98 03/25/23 00:00 81 26 H 138/71 100 Nasal Cannula 03/24/23 23:30 73 25 H 135/71 99 Nasal Cannula 03/24/23 23:00 98 H 26 H 146/67 H 97 Nasal Cannula 03/24/23 22:30 70 18 125/60 100 Nasal Cannula 03/24/23 22:22 74 16 135/67 100 Nasal Cannula 03/24/23 23:37 84 03/24/23 22:00 20 99 Nasal Cannula 03/24/23 22:08 99 03/24/23 22:00 Nasal Cannula 03/24/23 22:00 73 22 03/24/23 21:30 62 15 109/85 100 Nasal Cannula 03/24/23 21:01 68 20 159/90 H 98 Nasal Cannula 03/24/23 21:00 68 23 99 Nasal Cannula 03/24/23 21:00 Nasal Cannula 03/24/23 21:07 96 Nasal Cannula 03/24/23 20:53 67 O2 Del Method O2 Flow Rate O2 Flow Rate 03/25/23 07:06 03/25/23 07:10 2 03/25/23 05:00 2 03/25/23 04:30 2 03/25/23 04:00 2 03/25/23 03:30 2 03/25/23 03:00 2 03/25/23 02:30 2 03/25/23 02:30 03/25/23 02:00 2 03/25/23 02:00 03/25/23 01:32 03/25/23 01:32 03/25/23 01:30 03/25/23 01:13 03/25/23 00:30 03/25/23 00:00 2 03/24/23 23:30 2 03/24/23 23:00 2 03/24/23 22:30 2 03/24/23 22:22 2 03/24/23 23:37 03/24/23 22:00 3 03/24/23 22:08 Nasal Cannula 3 03/24/23 22:00 3 03/24/23 22:00 03/24/23 21:30 3 03/24/23 21:01 3 03/24/23 21:00 3 03/24/23 21:00 3 03/24/23 21:07 3 03/24/23 20:53 PG Care Time/CCT Total # of Minutes Spent Total Time Spent with Patient: Total time spent is greater than 50% in coordination of care (as documented) at patient's floor/unit and/or counseling patient: Coding Level of Care Code 61709 INT INP/OBS CARE 3/75MIN Diagnoses Secondary spontaneous pneumothorax J93.12 Emphysematous COPD J43.9 Chronic respiratory failure with hypoxia, on home oxygen therapy J96.11; Z99.81
[2023-03-25] MEDS ORDERED: NON-FORMULARY MEDICATION (Fluticasone-Umeclidin-Vilanter [Trelegy Ellipta] 100-62.5-25 mcg INH SCH (09:00)
[2023-03-25] MEDS: UMECLIDINIUM/VILANTEROL 62.5/25MCG 7 PUFFS/INHALER INH SCH (09:15)
[2023-03-25] MEDS: FLUTICASONE FUROATE 100MCG 14 PUFFS/INHALER INH SCH (09:15)
[2023-03-25] MEDS: THIAMINE HCL 100 MG TAB PO SCH (09:17)
[2023-03-25] MEDS: ROFLUMILAST 500 MCG TAB PO SCH (09:18)
[2023-03-25] MEDS: SACCHAROMYCES BOULARDII 250 MG CAP PO SCH (09:18)
[2023-03-25] MEDS: POTASSIUM CHLORIDE CRTAB 20 MEQ TABCR PO SCH (09:19)
[2023-03-25] MEDS: CEROVITE ADV FORMULA TAB PO SCH (09:20)
[2023-03-25] MEDS: FOLIC ACID 1 MG TAB PO SCH (09:20)
[2023-03-25] MEDS: CYANOCOBALAMIN (B-12) 100 MCG TABLET PO SCH (09:21)
[2023-03-25] MEDS: FERROUS SULFATE 325 MG TAB PO SCH ×2 (09:21→20:31)
[2023-03-25] MEDS: VANCOMYCIN HCL 125 MG/2.5ML SOLN PO SCH (10:19)
[2023-03-25] MEDS: CHERRY SYRUP 5 ML UDP PO SCH (10:19)
--- NOTE | 2023-03-25 12:11 | XRay Report ---
XR chest 2V PA/lateral HISTORY: Follow-up left-sided pneumothorax COMPARISON: Chest 03/24/2023. FINDINGS: A small left basilar hydropneumothorax is noted. The pneumothorax component is similar in s ize compared to the prior study. Emphysema again noted. The heart is normal in size. Patchy density l eft lung base favor atelectasis. No evidence for pulmonary edema. There are old, healed right-sided r ib fractures. Mild anterior wedge-shaped compression deformity within the mid thoracic spine is likel y chronic. IMPRESSION: Small left basilar hydropneumothorax. This is similar to the prior study. ACT 112: Negative or not required by law. Electronically signed by: Madan Henderson M.D. 03/25/2023 12:10 PM
--- NOTE | 2023-03-25 14:43 | Hospitalist Progress Note ---
Date of Service March 25, 2023 Assessment & Plan (1) Pneumothorax on left: (2) Left-sided chest pain: Plan: Patient is 82-year-old male with PMH COPD, chronic hypoxic respiratory failure on chronic 2.5 L oxygen, chronic anemia, GERD, alcohol use, history of recurrent C. difficile presented to ER with complaint of chest pain x3 days. Spontaneous pneumothorax H/O COPD Chronic oxygen dependency: On 2.5 L supplemental oxygen at baseline Pneumothorax likely secondary to ruptured bleb --CXR:Left pneumothorax at the lung base. The cardiomediastinal silhouette is normal. Extensive emphysematous changes are seen. Continue supplemental oxygen Appreciate pulmonology input Plan to repeat chest x-ray tomorrow (3) Chronic respiratory failure with hypoxia, on home oxygen therapy: (4) COPD (chronic obstructive pulmonary disease): Plan: No signs COPD exacerbation at this time Continue home oxygen. 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 At baseline Continue ferrous sulfate, B12, folic acid supplements (7) GERD (gastroesophageal reflux disease): Plan: Continue PPI (8) Alcohol use: Plan: 2 drinks daily Monitor for withdrawal Counseled to quit drinking Continue thiamine, folic acid DVT Px SCDs for now Code Status DNR/DNI Admission and Anticipated Discharge Date Admission Date: March 24, 2023 Subjective Patient is seen and examined at bedside States having headache this morning Also reports chronic cough with expectoration Left-sided pleuritic pain improved Saturating well on 2 L supplemental oxygen No other complaints Review of Systems Review of Systems: All systems reviewed & are unremarkable except as noted in Subjective Physical Exam Physical Exam: Physical Exam: Vitals signs as noted above General Appearance:Thin, frail, no apparent distress Head: normocephalic, Atraumatic Eyes: normal inspection, EOMI Neck: supple, Trachea midline Respiratory/Chest: Decreased breath sounds on Left base, No accessory muscle use Cardiovascular: S1, S2, No murmur Abdomen/GI:Soft, Non tender, Bowel sounds present Extremities/Musculoskeletal:normal inspection, no edema Neurologic/Psych:AAOX3, grossly no focal neurological deficits Skin: normal color, warm Results & Data Results & Data Vital Signs (Past 12 Hours) Vital Signs Pulse Pulse Resp BP Pulse Ox O2 Del Method O2 Flow Rate 03/25/23 14:00 94 H 29 H 99 03/25/23 14:00 134/69 03/25/23 13:31 130/76 03/25/23 13:31 108 H 29 H 97 03/25/23 13:30 105 H 20 98 03/25/23 13:00 90 28 H 100 03/25/23 13:00 141/66 H 03/25/23 12:30 85 21 100 03/25/23 12:30 124/69 03/25/23 12:00 84 28 H 99 03/25/23 12:00 127/60 03/25/23 12:06 82 20 99 Nasal Cannula 2 03/25/23 11:30 82 25 H 100 Nasal Cannula 2 03/25/23 11:30 115/64 03/25/23 11:00 75 20 99 Nasal Cannula 2 03/25/23 11:00 121/52 L 03/25/23 11:46 96 Nasal Cannula 2 03/25/23 10:30 89 28 H 99 03/25/23 10:30 119/70 03/25/23 10:00 97 H 25 H 100 03/25/23 10:00 126/66 03/25/23 09:30 93 H 26 H 99 03/25/23 09:30 127/67 03/25/23 09:24 133/115 H 03/25/23 09:24 96 H 30 H 91 03/25/23 09:00 106 H 19 98 03/25/23 08:00 99 H 24 97 03/25/23 08:00 145/104 H 03/25/23 07:30 110 H 19 99 03/25/23 07:30 140/72 03/25/23 07:01 73 21 97 03/25/23 07:01 138/89 03/25/23 07:00 75 17 98 03/25/23 06:30 73 19 98 03/25/23 06:30 126/79 03/25/23 06:00 77 27 H 99 03/25/23 06:00 127/67 03/25/23 05:31 114/60 03/25/23 05:31 73 26 H 99 03/25/23 05:30 65 25 H 99 03/25/23 07:06 80 03/25/23 07:10 70 18 99 Nasal Cannula 2 03/25/23 05:00 91 H 23 125/73 100 Nasal Cannula 2 03/25/23 04:30 78 24 134/74 99 Nasal Cannula 2 03/25/23 04:00 68 26 H 125/87 100 Nasal Cannula 2 03/25/23 03:30 83 22 133/64 98 Nasal Cannula 2 03/25/23 03:00 79 25 H 112/55 L 99 Nasal Cannula 2 Laboratory Results Short CBC 03/24/23 03/25/23 Range/Units 16:54 04:18 WBC 7.28 8.11 (4.8-10.8) K/ul Hgb 10.6 L 10.0 L (14.0-18.0) g/dl Hct 33.6 L 32.1 L (42.0-52.0) % Plt Count 236 237 (130-400) K/uL BMP 03/24/23 03/25/23 16:54 04:18 Sodium 141 142 Potassium 4.5 4.6 Chloride 110 H 110 H Carbon Dioxide 26 24 BUN 11 12 Creatinine 1.08 1.00 Glucose 113 H 101 H Calcium 9.0 8.9 Liver Function 03/24/23 03/25/23 Range/Units 16:54 04:18 Total Bilirubin 0.3 0.6 (0.2-1.0) mg/dl AST 35 38 (13-39) U/L ALT 47 42 (7-52) U/L Alkaline Phosphatase 536 H 491 H (34-104) U/L Albumin 3.7 3.5 (3.4-5.0) gm/dl
[2023-03-26] MEDS ORDERED: XOPENEX/ATROVENT 1.25mg/0.5MG NEB COMBO NEB STA (01:10)
[2023-03-26] MEDS ORDERED: LEVALBUTEROL 1.25 MG/3 ML NEB NEB STA (01:10)
[2023-03-26] MEDS ORDERED: IPRATROPIUM BROMIDE NEB SOLN 0.02% 2.5 ML VIAL INH STA (01:10)
[2023-03-26 01:55] LABS: Magnesium 1.7 mg/dl (1.7-2.4)
[2023-03-26] MEDS: PANTOprazole 40 MG TAB PO SCH (05:43)
[2023-03-26] MEDS: LEVALBUTEROL 1.25 MG/3 ML NEB NEB SCH ×3 (07:03→18:57)
[2023-03-26] MEDS: IPRATROPIUM BROMIDE NEB SOLN 0.02% 2.5 ML VIAL INH SCH ×3 (07:03→18:57)
[2023-03-26 07:11] LABS: Hematocrit (blood only) 31.5 % (42.0-52.0); Hemoglobin 10.2 g/dl (14.0-18.0); Mean Corpuscular Hemoglobin 27.6 pg (25.0-34.0); Mean Corpuscular Hgb Conc 32.4 g/dL (32.0-36.0); Mean Corpuscular Volume 85.1 fL (80.0-100.0); Platelet Count 232 K/uL (130-400); RDW Coefficient of Variation 21.2 % (11.5-14.5); RDW Standard Deviation 64.7 fL (36.4-46.3); White Blood Count 7.24 K/ul (4.8-10.8)
[2023-03-26 07:27] LABS: Calcium 9.2 mg/dl (8.6-10.3); Creatinine Clr Calc Pharmacy 43.7 ml/min; Est GFR (Non-African American) 70.8 ml/min; Magnesium 1.5 mg/dl (1.7-2.4); Potassium 4.1 mmol/L (3.5-5.1)
--- NOTE | 2023-03-26 07:30 | XRay Report ---
XR chest 1V portable HISTORY: 82 years-old Male ptx follow-up study in a patient with a left-sided pneumothorax COMPARISON: 03/25/2023 TECHNIQUE: AP view of the chest FINDINGS: Persistent small left basilar pneumothorax with pleural separation of 1.2 cm, mildly decreased in siz e from prior. The pleural fusion on the left has also decreased in size. Emphysema with chronic inter stitial coarsening. Cardiac mediastinal and hilar silhouettes are unchanged. Degenerative changes of the shoulders and spine. IMPRESSION: Mildly decreased size of the small left-sided hydropneumothorax. ACT 112: Negative or not required by law. The above report was generated using voice recognition software. It may contain grammatical, syntax o r spelling errors. Electronically signed by: Rory Forrest M.D. 03/26/2023 7:28 AM
[2023-03-26] MEDS: POTASSIUM CHLORIDE CRTAB 20 MEQ TABCR PO SCH (07:42)
[2023-03-26] MEDS: ROFLUMILAST 500 MCG TAB PO SCH (07:42)
[2023-03-26] MEDS: FERROUS SULFATE 325 MG TAB PO SCH ×2 (07:42→21:17)
[2023-03-26] MEDS: SACCHAROMYCES BOULARDII 250 MG CAP PO SCH (07:43)
[2023-03-26] MEDS: FOLIC ACID 1 MG TAB PO SCH (07:43)
[2023-03-26] MEDS: CHERRY SYRUP 5 ML UDP PO SCH (07:43)
[2023-03-26] MEDS ORDERED: MAGNESIUM SULFATE / D5W 1 GM/100 ML BAG IV ONE (08:00)
[2023-03-26] MEDS: VANCOMYCIN HCL 125 MG/2.5ML SOLN PO SCH (08:54)
[2023-03-26] MEDS: THIAMINE HCL 100 MG TAB PO SCH (09:24)
[2023-03-26] MEDS: CYANOCOBALAMIN (B-12) 100 MCG TABLET PO SCH (09:24)
[2023-03-26] MEDS: ACETAMINOPHEN 325 MG TAB PO PRN ×3 (09:26→22:47)
--- NOTE | 2023-03-26 11:20 | Pulmonology Progress Note ---
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 He is stable at this present time with his typical oxygen needs of 2 to 2.5 L of oxygen per minute via nasal cannula. His pneumothorax has decreased in size without invasive intervention. He is feeling better overall. He will need thoracic surgery follow-up as an outpatient for consideration of a blebectomy to prevent recurrence of pneumothorax. Recommend repeat chest x-ray on Wednesday which can be done on an outpatient basis and coordinated by his PCP. Otherwise continue his home inhalers and supplemental oxygen. No signs of COPD exacerbation at this time. Thank you for allowing me to participate in the care of the patient. No further recommendations at this time. Please call with questions. Admission and Anticipated Discharge Date Admission Date: March 24, 2023 Subjective Patient notes less pleurisy today. Shortness of breath is improving. Denies any significant chest pain at present. No fevers. Chronic cough is present with occasional productive sputum. Review of Systems Review of Systems: All systems reviewed & are unremarkable except as noted in HPI & below Physical Exam Physical Exam: Constitutional: Cachectic appearing male no apparent distress. Eyes: Pupils are equal round and reactive to light. Conjunctivae are normal. Anicteric sclera. Ears nose, mouth and throat: Mallampati class 1. Normal posterior oropharynx. Uvula is midline. Neck: Trachea is midline. Visual inspection is normal. Respiratory: Prolonged phase of exhalation. Mild crackles bibasilarly. Cardiovascular: Regular rate and rhythm. No murmurs. No edema. Gastrointestinal: Normal bowel sounds, soft, nontender and nondistended. No hepatosplenomegaly noted. Musculoskeletal: No cyanosis. Patient is able to move all extremities. 4/5 strength in the upper extremities. Skin: No rashes, warm dry and intact. Neurologic: No obvious focal neurological deficits seen. Psychiatric: Alert and oriented x3 with a euthymic affect. Results & Data Results & Data Vital Signs (Past 12 Hours) Vital Signs Temp Pulse Pulse Resp BP Pulse Ox O2 Del Method 03/26/23 08:00 78 03/26/23 08:00 Nasal Cannula 03/26/23 08:00 36.8 C 93 H 20 131/66 94 Nasal Cannula 03/26/23 07:03 88 18 98 Nasal Cannula 03/26/23 03:53 36.6 C 92 H 18 131/48 L 98 Nasal Cannula 03/26/23 01:29 85 20 96 Nasal Cannula 03/25/23 23:18 36.6 C 82 20 117/66 98 Nasal Cannula O2 Flow Rate 03/26/23 08:00 03/26/23 08:00 2 03/26/23 08:00 2 03/26/23 07:03 2 03/26/23 03:53 1.5 03/26/23 01:29 2 03/25/23 23:18 2 PG Care Time/CCT Total # of Minutes Spent Total Time Spent with Patient: Total time spent is greater than 50% in coordination of care (as documented) at patient's floor/unit and/or counseling patient: Coding Level of Care Code 44478 SUB INP/OBS CARE 07/01MIN Diagnoses Secondary spontaneous pneumothorax J93.12 Emphysematous COPD J43.9 Chronic respiratory failure with hypoxia, on home oxygen therapy J96.11; Z99.81
[2023-03-26] MEDS: CEROVITE ADV FORMULA TAB PO SCH (11:33)
[2023-03-26] MEDS: FLUTICASONE FUROATE 100MCG 14 PUFFS/INHALER INH SCH (11:33)
[2023-03-26] MEDS: UMECLIDINIUM/VILANTEROL 62.5/25MCG 7 PUFFS/INHALER INH SCH (11:33)
--- NOTE | 2023-03-26 15:13 | Hospitalist Progress Note ---
Date of Service March 26, 2023 Assessment & Plan (1) Pneumothorax on left: (2) Left-sided chest pain: Plan: Patient is 82-year-old male with PMH COPD, chronic hypoxic respiratory failure on chronic 2.5 L oxygen, chronic anemia, GERD, alcohol use, history of recurrent C. difficile presented to ER with complaint of chest pain x3 days. Spontaneous pneumothorax H/O COPD Chronic oxygen dependency: On 2.5 L supplemental oxygen at baseline Pneumothorax likely secondary to ruptured bleb --CXR:Left pneumothorax at the lung base. The cardiomediastinal silhouette is normal. Extensive emphysematous changes are seen. Continue supplemental oxygen Appreciate pulmonology input Repeat x-ray today showed decreased size of pneumothorax No plan for invasive intervention currently as per pulmonology Needs outpatient follow-up with thoracic surgeon--for consideration of blebectomy PT OT eval Will need repeat chest x-ray as outpatient Hypomagnesemia Replete electrolytes as needed (3) Chronic respiratory failure with hypoxia, on home oxygen therapy: (4) COPD (chronic obstructive pulmonary disease): Plan: No signs COPD exacerbation at this time Continue home oxygen. 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 At baseline Continue ferrous sulfate, B12, folic acid supplements (7) GERD (gastroesophageal reflux disease): Plan: Continue PPI (8) Alcohol use: Plan: 2 drinks daily Monitor for withdrawal Counseled to quit drinking Continue thiamine, folic acid Severe protein calorie malnutrition BMI 17 Dietitian consulted DVT Px SCDs for now Code Status DNR/DNI Admission and Anticipated Discharge Date Admission Date: March 24, 2023 Subjective Patient is seen and examined at bedside Less pleuritic pain today Still has some headache Chest x-ray today showed decreased size of pneumothorax No other complaints Saturating well on 2 L supplemental oxygen chronic cough with expectoration Review of Systems Review of Systems: All systems reviewed & are unremarkable except as noted in Subjective Physical Exam Physical Exam: Physical Exam: Vitals signs as noted above General Appearance:Thin, frail, no apparent distress Head: normocephalic, Atraumatic Eyes: normal inspection, EOMI Neck: supple, Trachea midline Respiratory/Chest: Decreased breath sounds on Left base, No accessory muscle use Cardiovascular: S1, S2, No murmur Abdomen/GI:Soft, Non tender, Bowel sounds present Extremities/Musculoskeletal:normal inspection, no edema Neurologic/Psych:AAOX3, grossly no focal neurological deficits Skin: normal color, warm Results & Data Results & Data Vital Signs (Past 12 Hours) Vital Signs Temp Pulse Pulse Resp BP Pulse Ox O2 Del Method 03/26/23 12:44 88 18 95 Nasal Cannula 03/26/23 11:54 36.7 C 106 H 18 104/58 L 98 Nasal Cannula 03/26/23 08:00 78 03/26/23 08:00 Nasal Cannula 03/26/23 08:00 36.8 C 93 H 20 131/66 94 Nasal Cannula 03/26/23 07:03 88 18 98 Nasal Cannula 03/26/23 03:53 36.6 C 92 H 18 131/48 L 98 Nasal Cannula O2 Flow Rate 03/26/23 12:44 2 03/26/23 11:54 2.0 03/26/23 08:00 03/26/23 08:00 2 03/26/23 08:00 2 03/26/23 07:03 2 03/26/23 03:53 1.5 Laboratory Results Short CBC 03/26/23 Range/Units 06:36 WBC 7.24 (4.8-10.8) K/ul Hgb 10.2 L (14.0-18.0) g/dl Hct 31.5 L (42.0-52.0) % Plt Count 232 (130-400) K/uL BMP 03/26/23 06:36 Sodium 140 Potassium 4.1 Chloride 107 Carbon Dioxide 26 BUN 16 Creatinine 1.00 Glucose 99 Calcium 9.2
[2023-03-26] MEDS: MAGNESIUM CHLORIDE W/CALCIUM 64MG DELAYED REL TAB PO SCH (21:18)
[2023-03-27] MEDS: PANTOprazole 40 MG TAB PO SCH (06:18)
[2023-03-27] MEDS: ACETAMINOPHEN 325 MG TAB PO PRN ×2 (06:21→13:55)
[2023-03-27 06:28] LABS: Hematocrit (blood only) 33.6 % (42.0-52.0); Hemoglobin 10.8 g/dl (14.0-18.0)
[2023-03-27 06:49] LABS: BUN Creatinine Ratio 18.2 (10-20); Calcium 9.5 mg/dl (8.6-10.3); Creatinine Clr Calc Pharmacy 45.4 ml/min; Est GFR (African American) 73.1 ml/min; Est GFR (Non-African American) 63.1 ml/min; Magnesium 1.6 mg/dl (1.7-2.4); Potassium 4.3 mmol/L (3.5-5.1)
[2023-03-27] MEDS: IPRATROPIUM BROMIDE NEB SOLN 0.02% 2.5 ML VIAL INH SCH ×2 (07:10→12:51)
[2023-03-27] MEDS: LEVALBUTEROL 1.25 MG/3 ML NEB NEB SCH ×2 (07:11→12:51)
[2023-03-27] MEDS ORDERED: MAGNESIUM SULFATE / D5W 1 GM/100 ML BAG IV ONE (08:05)
--- NOTE | 2023-03-27 08:26 | XRay Report ---
XR chest 1V portable CLINICAL HISTORY: pneumothorax COMPARISON STUDY: Chest CT July 02, 2022. Chest radiograph March 26, 2023. FINDINGS: A small left pneumothorax is similar in size to prior exam. Basilar and apical components a re noted. Mild left basilar opacity persists. There are severe emphysema. Cardiac size is normal. Med iastinal contours are stable. Left hilar prominence is unchanged and likely due to pulmonary vessels. IMPRESSION: No significant change in a small left pneumothorax and mild left lower lung airspace opa city. ACT 112: Negative or not required by law. Electronically signed by: Charles Littlejohn M.D. 03/27/2023 8:24 AM
[2023-03-27] MEDS: CEROVITE ADV FORMULA TAB PO SCH (08:48)
[2023-03-27] MEDS: FLUTICASONE FUROATE 100MCG 14 PUFFS/INHALER INH SCH (08:49)
[2023-03-27] MEDS: FOLIC ACID 1 MG TAB PO SCH (08:49)
[2023-03-27] MEDS: MAGNESIUM CHLORIDE W/CALCIUM 64MG DELAYED REL TAB PO SCH (08:49)
[2023-03-27] MEDS: UMECLIDINIUM/VILANTEROL 62.5/25MCG 7 PUFFS/INHALER INH SCH (08:49)
[2023-03-27] MEDS: VANCOMYCIN HCL 125 MG/2.5ML SOLN PO SCH (08:49)
[2023-03-27] MEDS: FERROUS SULFATE 325 MG TAB PO SCH (08:50)
[2023-03-27] MEDS: SACCHAROMYCES BOULARDII 250 MG CAP PO SCH (08:50)
[2023-03-27] MEDS: THIAMINE HCL 100 MG TAB PO SCH (08:50)
[2023-03-27] MEDS: CYANOCOBALAMIN (B-12) 100 MCG TABLET PO SCH (08:50)
[2023-03-27] MEDS: ROFLUMILAST 500 MCG TAB PO SCH (08:50)
[2023-03-27] MEDS: CHERRY SYRUP 5 ML UDP PO SCH (08:51)
[2023-03-27] MEDS: POTASSIUM CHLORIDE CRTAB 20 MEQ TABCR PO SCH (08:59)
--- NOTE | 2023-03-27 11:53 | Hospitalist Progress Note ---
Date of Service March 27, 2023 Assessment & Plan (1) Pneumothorax on left: (2) Left-sided chest pain: Plan: Patient is 82-year-old male with PMH COPD, chronic hypoxic respiratory failure on chronic 2.5 L oxygen, chronic anemia, GERD, alcohol use, history of recurrent C. difficile presented to ER with complaint of chest pain x3 days. Spontaneous pneumothorax H/O COPD Chronic oxygen dependency: On 2.5 L supplemental oxygen at baseline Pneumothorax likely secondary to ruptured bleb --CXR:Left pneumothorax at the lung base. The cardiomediastinal silhouette is normal. Extensive emphysematous changes are seen. Continue supplemental oxygen Appreciate pulmonology input Repeat x-ray today showed decreased size of pneumothorax No plan for invasive intervention currently as per pulmonology Needs outpatient follow-up with thoracic surgeon--for consideration of blebectomy PT OT eval:Recommends to return home chest x-ray today is unchanged Needs follow-up with pulmonology and CT surgery as outpatient Hypomagnesemia Replete electrolytes as needed (3) Chronic respiratory failure with hypoxia, on home oxygen therapy: (4) COPD (chronic obstructive pulmonary disease): Plan: No signs COPD exacerbation at this time Continue home oxygen. 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 At baseline Continue ferrous sulfate, B12, folic acid supplements (7) GERD (gastroesophageal reflux disease): Plan: Continue PPI (8) Alcohol use: Plan: 2 drinks daily Monitor for withdrawal Counseled to quit drinking Continue thiamine, folic acid Severe protein calorie malnutrition BMI 17 Dietitian consulted DVT Px SCDs for now Code Status DNR/DNI Disposition Home Admission and Anticipated Discharge Date Admission Date: March 24, 2023 Subjective Patient is seen and examined at bedside Still has some pleuritic pain Chest x-ray today is unchanged Updated patient's son over the phone No other complaints Review of Systems Review of Systems: All systems reviewed & are unremarkable except as noted in Subjective Physical Exam Physical Exam: Physical Exam: Vitals signs as noted above General Appearance:Thin, frail, no apparent distress Head: normocephalic, Atraumatic Eyes: normal inspection, EOMI Neck: supple, Trachea midline Respiratory/Chest: Decreased breath sounds on Left base, No accessory muscle use Cardiovascular: S1, S2, No murmur Abdomen/GI:Soft, Non tender, Bowel sounds present Extremities/Musculoskeletal:normal inspection, no edema Neurologic/Psych:AAOX3, grossly no focal neurological deficits Skin: normal color, warm Results & Data Results & Data Vital Signs (Past 12 Hours) Vital Signs Temp Pulse Pulse Pulse Resp BP Pulse Ox 03/27/23 11:26 36.4 C L 102 H 18 143/84 H 93 03/27/23 08:00 85 03/27/23 08:00 03/27/23 07:27 36.6 C 79 18 121/69 98 03/27/23 07:11 80 18 98 03/27/23 03:40 36.6 C 87 18 118/63 97 O2 Del Method O2 Flow Rate 03/27/23 11:26 Nasal Cannula 2 03/27/23 08:00 03/27/23 08:00 Nasal Cannula 2 03/27/23 07:27 Nasal Cannula 2 03/27/23 07:11 Nasal Cannula 2 03/27/23 03:40 Nasal Cannula 2 Laboratory Results Short CBC 03/27/23 Range/Units 05:27 Hgb 10.8 L (14.0-18.0) g/dl Hct 33.6 L (42.0-52.0) % BMP 03/27/23 05:27 Sodium 136 Potassium 4.3 Chloride 104 Carbon Dioxide 26 BUN 20 Creatinine 1.10 Glucose 93 Calcium 9.5
--- NOTE | 2023-03-27 12:14 | Discharge Summary ---
Date of Service March 27, 2023 Admission HPI Per Admitting Provider Patient is 82-year-old male with PMH COPD, chronic hypoxic respiratory failure on chronic 2.5 L oxygen, chronic anemia, GERD, alcohol use, history of recurrent C. difficile presented to ER with complaint of chest pain x3 days. Patient reports chronic shortness of breath, worse with exertion at baseline. Minimally ambulatory secondary to exertional dyspnea. Uses walker at baseline. Patient reports chronic cough at baseline with chronic green color sputum production. Patient states couple weeks ago thought he may have had the flu he had body aches and URI symptoms. Patient reports nasal congestion and myalgia symptoms resolved and feels breathing is at baseline this week. Denies any fevers, chills. Denies any injury, trauma or falls. Patient reports onset of left sided chest pain 3 days ago with walking, sitting up or standing. At rest denies any chest pain. He was instructed by [facility] provider to be evaluated in ER yesterday secondary to symptoms however patient waited to be evaluated until today. Has chronic loose/soft stools with 4-5 bowel movements daily. Is on vancomycin daily. Denies fever/chills, diaphoresis, N/V/D/C, GIMENEZ, dizziness, syncope, vision changes, neck pain, palpitations, hemoptysis, sore throat, choking, otalgia, abdominal pain, paresthesias, extremity weakness, extremity edema, rashes, urinary symptoms. Admission Exam Per Admitting Provider General: no acute distress sitting in bed on 2.5L oxygen, chronic ill appearing elderly male, thin Head: normocephalic, atraumatic Eyes: conjunctiva non-injected, anicteric ENT: normal inspection external ears, nose, mucous membranes moist Neck: supple, trachea midline Lungs: no respiratory distress on 2.5L via NC, R: 18, slightly diminished breath sounds left base, no wheezing/rhonchi/rales CV: RRR, no murmur, no pretibial edema Abd: normal BS, soft, non-tender Ext: no cyanosis, no calf tenderness Neuro: A&O x 3, no focal deficits noted, normal affect Skin: warm, dry Principal Diagnosis Spontaneous pneumothorax Hypomagnesemia Alcohol use disorder Discharge Data Allergies Allergy/AdvReac Type Severity Reaction Status Date / Time No Known Allergies Allergy Verified 07/02/22 19:29 Consultations 03/24/23 18:45 ED Decision to Admit Stat 03/24/23 21:25 Consult Pulmonology Routine Procedures Performed Short CBC 03/27/23 Range/Units 05:27 Hgb 10.8 L (14.0-18.0) g/dl Hct 33.6 L (42.0-52.0) % BMP 03/27/23 05:27 Sodium 136 Potassium 4.3 Chloride 104 Carbon Dioxide 26 BUN 20 Creatinine 1.10 Glucose 93 Calcium 9.5 Ordered Studies Laboratory Results WBC 7.24 K/ul (4.8-10.8) 03/26/23 06:36 RBC 3.70 M/uL (4.70-6.10) L 03/26/23 06:36 Hgb 10.8 g/dl (14.0-18.0) L 03/27/23 05:27 Hct 33.6 % (42.0-52.0) L 03/27/23 05:27 MCV 85.1 fL (80.0-100.0) 03/26/23 06:36 MCH 27.6 pg (25.0-34.0) 03/26/23 06:36 MCHC 32.4 g/dL (32.0-36.0) 03/26/23 06:36 RDW Std Deviation 64.7 fL (36.4-46.3) H 03/26/23 06:36 RDW Coeff of Julissa 21.2 % (11.5-14.5) H 03/26/23 06:36 Plt Count 232 K/uL (130-400) 03/26/23 06:36 MPV 10.0 fL (9.4-12.4) 03/26/23 06:36 Immature Gran % (Auto) 0.2 % 03/25/23 04:18 Neut % (Auto) 65.0 % 03/25/23 04:18 Lymph % (Auto) 19.5 % 03/25/23 04:18 Whitley % (Auto) 9.0 % 03/25/23 04:18 Eos % (Auto) 5.9 % 03/25/23 04:18 Baso % (Auto) 0.4 % 03/25/23 04:18 Neut # (Auto) 5.27 K/uL (1.40-6.50) 03/25/23 04:18 Lymph # (Auto) 1.58 K/uL (1.20-3.40) 03/25/23 04:18 Whitley # (Auto) 0.73 K/uL (0.11-0.59) H 03/25/23 04:18 Eos # (Auto) 0.48 K/uL (0.00-0.50) 03/25/23 04:18 Baso # (Auto) 0.03 K/uL (0.00-0.20) 03/25/23 04:18 Immature Gran # (Auto) 0.02 K/uL (0.01-0.20) 03/25/23 04:18 Anisocytosis Present 03/25/23 04:18 PT 10.8 Seconds (9.0-12.0) 03/24/23 16:54 INR 1.0 (0.9-1.1) 03/24/23 16:54 Sodium 136 mmol/L (136-145) 03/27/23 05:27 Potassium 4.3 mmol/L (3.5-5.1) 03/27/23 05:27 Chloride 104 mmol/L (98-107) 03/27/23 05:27 Carbon Dioxide 26 mmol/L (21-32) 03/27/23 05:27 Anion Gap 6 (3-11) 03/27/23 05:27 BUN 20 mg/dl (6-23) 03/27/23 05:27 Creatinine 1.10 mg/dl (0.6-1.4) 03/27/23 05:27 Est Cr Clr Drug Dosing 45.4 ml/min 03/27/23 05:27 Est GFR ( Amer) 73.1 ml/min 03/27/23 05:27 Est GFR (Non-Af Amer) 63.1 ml/min 03/27/23 05:27 BUN/Creatinine Ratio 18.2 (10-20) 03/27/23 05:27 Glucose 93 mg/dl (70-99(Fasting)) 03/27/23 05:27 Calcium 9.5 mg/dl (8.6-10.3) 03/27/23 05:27 Magnesium 1.6 mg/dl (1.7-2.4) L 03/27/23 05:27 Total Bilirubin 0.6 mg/dl (0.2-1.0) 03/25/23 04:18 AST 38 U/L (13-39) 03/25/23 04:18 ALT 42 U/L (7-52) 03/25/23 04:18 Alkaline Phosphatase 491 U/L (34-104) H 03/25/23 04:18 Troponin I High Sens 6.7 pg/ml (0-20) 03/24/23 16:54 Total Protein 6.0 gm/dl (6.0-8.3) 03/25/23 04:18 Albumin 3.5 gm/dl (3.4-5.0) 03/25/23 04:18 Globulin 2.5 gm/dl (2.5-4.0) 03/25/23 04:18 Albumin/Globulin Ratio 1.4 (0.9-2) 03/25/23 04:18 Lipase 21 U/L (11-82) 03/24/23 16:54 Impressions Chest X-Ray 03/27/23 07:00 XR chest 1V portable CLINICAL HISTORY: pneumothorax COMPARISON STUDY: Chest CT July 02, 2022. Chest radiograph March 26, 2023. FINDINGS: A small left pneumothorax is similar in size to prior exam. Basilar and apical components are noted. Mild left basilar opacity persists. There are severe emphysema. Cardiac size is normal. Mediastinal contours are stable. Left hilar prominence is unchanged and likely due to pulmonary vessels. IMPRESSION: No significant change in a small left pneumothorax and mild left lower lung airspace opacity. ACT 112: Negative or not required by law. Electronically signed by: Charels Littlejohn M.D. 03/27/2023 8:24 AM Hospital Course (1) Pneumothorax on left: (2) Left-sided chest pain: Patient is 82-year-old male with PMH COPD, chronic hypoxic respiratory failure on chronic 2.5 L oxygen, chronic anemia, GERD, alcohol use, history of recurrent C. difficile presented to ER with complaint of chest pain x3 days. Spontaneous pneumothorax H/O COPD Chronic oxygen dependency: On 2.5 L supplemental oxygen at baseline Pneumothorax likely secondary to ruptured bleb --CXR:Left pneumothorax at the lung base. The cardiomediastinal silhouette is normal. Extensive emphysematous changes are seen. Continue supplemental oxygen Appreciate pulmonology input Repeat x-ray today showed decreased size of pneumothorax No plan for invasive intervention currently as per pulmonology Needs outpatient follow-up with thoracic surgeon--for consideration of bl ebectomy PT OT eval:Recommends to return home chest x-ray today is unchanged Needs follow-up with pulmonology and CT surgery as outpatient Hypomagnesemia Replete electrolytes as needed (3) Chronic respiratory failure with hypoxia, on home oxygen therapy: (4) COPD (chronic obstructive pulmonary disease): No signs COPD exacerbation at this time Continue home oxygen. Goal 88-92% oxygen saturation Continue home inhaler, nebulizers (5) Recurrent Clostridioides difficile infection: History recurrent C. difficile infection On chronic vancomycin (6) Chronic anemia: Hgb: 10.6. At baseline Continue ferrous sulfate, B12, folic acid supplements (7) GERD (gastroesophageal reflux disease): Continue PPI (8) Alcohol use: 2 drinks daily Monitor for withdrawal Counseled to quit drinking Continue thiamine, folic acid Severe protein calorie malnutrition BMI 17 Dietitian consulted DVT Px SCDs for now Code Status DNR/DNI Disposition Home Total Time Total Time Spent Total Time Spent (In Minutes): 60 minutes Discharge Plan Discharge Items Patient Disposition: Home - Self-Care Reason For Visit: PNEUMOTHORAX Discharge Diagnosis: Spontaneous pneumothorax Hypomagnesemia Alcohol use disorder Activity: Per Instructions section Exercise/Sports: Gradually increase as tolerated Non-emergency contact: Primary Care Provider and Machine Umbrella Tipper Call non-emergency contact if: you have any medication questions, your symptoms worsen, your pain is concerning for you and you have a fever Follow-up/Referrals: Kavya Dillard CRNP [Primary Care Provider] - (Date & Time 04/01/2023 3:00 PM Provider [facility] ) Diet: Regular Addtl Attending Provider Instructions: Follow-up with your primary care physician Kavya TUCKER on Apr 01, 2023 at 2:45 PM Follow up with your [employer]pper and Cardiothoracic surgery as recommended --Obtain chest X ray on 03/29/23 for evaluation of Pneumothorax and follow-up with primary care physician/marketing systems analyst for further recommendations. --Quit drinking alcohol as advised Seek immediate medical attention if your symptoms reoccur or worsen Please take all medications as instructed on discharge list below. Please call if you have any questions or problems. You can reach a [facility] hospitalist on duty at [facility] 24 hours a day by calling [phone] Pending Studies at Discharge: No Stand-Alone Forms: My [facility], Smoking Cessation Medications and DC Order Prescriptions: New Mag 64 64 mg Tablet,Delayed Release (Dr/Ec) 64 mg PO BID Qty: 60 0RF Continued Daliresp 500 mcg tablet 500 mcg PO QAM folic acid 1 mg tablet 1 mg PO QAM ProAir RespiClick 90 mcg/actuation aerosol powdr breath activated 2 puffs INH Q4H PRN (Reason: shortness of breath or wheezing) thiamine HCl (vitamin B1) 100 mg tablet 100 mg PO QAM cyanocobalamin (vitamin B-12) 100 mcg tablet 100 mcg PO DAILY omeprazole 40 mg Capsule,Delayed Release(Dr/Ec) 40 mg PO DAILYBB acetaminophen [Tylenol Extra Strength] 500 mg Tablet 500 mg PO Q4H PRN (Reason: Pain) levalbuterol HCl [Xopenex] 1.25 mg/3 mL Solution For Nebulization 1.25 mg INHALATION TID multivitamin with minerals Tablet 1 tab PO DAILY ipratropium bromide 0.02 % Solution 2.5 ml INHALATION TID PRN (Reason: Shortness Of Breath Or Wheezing) potassium chloride 20 mEq Tablet Extended Release 20 meq PO DAILY famotidine 20 mg tablet 20 mg PO DAILY PRN (Reason: Heartburn) ferrous sulfate 325 mg (65 mg iron) tablet 325 mg PO BID vancomycin 125 mg capsule 125 mg PO DAILY Saccharomyces boulardii [Florastor] 250 mg Capsule 250 mg PO DAILY Trelegy Ellipta 100-62.5-25 mcg blister with device 1 inh INHALATION DAILY Discharge Orders: Discharge Order (Routine); Ordered 03/27/23 Ordered By: Baljit Cope Admission Data Admit Date/Time: 03/24/23 19:15 Attending Provider: Baljit Cope Admit Provider: Joya Saab Primary Care Provider: Kavya Dillard Other Providers: Joya Saab ; Rickey Ventura
--- OUTSIDE RECORDS SUMMARY | 2023-04-08 22:57 | External Medical Summary | Summary of Care ---
Author Name Unknown Organization [facility] Address [address] [place] [address] Phone [phone] Care Team Providers Care Oyster Sorter Name Role Phone Kavya Dillardlle GARRETT Primary Care Provider Reason for Visit * Reason Onset Date Comments Appointment 03/31/2023 Encounter Details Date Type Department Care Team (Late st Contact Info) Description 03/31/2023 Telephone [facility] [place] [address] [place] [address] Services, Scheduling [address] [place] [address] Appointment (//) Allergies No known active allergiesdocumented as of this encounter (statuses as of 03/31/2023) Medications Medication Sig Dispensed Refills Start Date End Date Status acetaminophen (TYLENOL) 500 MG Tablet Take 1 Tablet by mouth every 4 hours as needed for Pain. 0 11/18/2017 Active hydrocortisone acetate (ANUSOL-HC) 25 MG suppository Administer 25 mg into the rectum 2 times a day as needed for Hemorrhoids. 0 Active Multiple Vitamins-Minerals (MULTIVITAMIN ADULTS) TABS Take by mouth daily. 0 Active oxygen IN GASIndications:Inc to 4LPM with ambulation/exertion 2.5 lpm at rest 3 LPM continuous oxygen with exertion DME: [facility] Indications: Inc to 4LPM with ambulation/exerti on 1 Each 0 04/01/2021 Active Saccharomyces boulardii 250 MG Oral Capsule (Florastor) Take 1 Capsule by mouth in the morning. Florastor . 0 Active Famotidine 20 MG Oral Tablet (Pepcid) Take by mouth 1 Tablet as needed before bedtime for Heartburn. 30 Tablet 11 02/24/2022 Active Folic Acid 1 MG Oral TabletIndications:Ch ronic respiratory failure with hypoxia, on home O2 therapy Take 1 Tablet (1 mg) by mouth in the morning. 90 Tablet 3 04/14/2022 Active Roflumilast 500 MCG Oral Tablet (Daliresp) Take 1 Tablet (500 mcg) by mouth in the morning. 180 Tablet 4 05/15/2022 Active Omeprazole 40 MG Oral Capsule Delayed Release (PriLOSEC) TAKE 1 CAPSULE BY MOUTH DAILY. 1 HOUR BEFORE THE FIRST MEAL OF THE DAY 90 Capsule 1 06/18/2022 Active Vitamin B-12 100 MCG Oral Tablet (vitamin B-12) TAKE 1 TABLET BY MOUTH DAILY 90 Tablet 3 06/25/2022 Active Thiamine HCl 100 MG Oral Tablet (vitamin B-1) TAKE 1 TABLET BY MOUTH EVERY DAY 90 Tablet 3 06/30/2022 Active Lidocaine 5 % External Patch (Lidoderm) AT BEDTIME 0 07/07/2022 Active guaiFENesin 200 MG Oral Tablet TAKE 1 TABLET BY MOUTH EVERY 6 HOURS NEEDED FOR CONGESTION FOR 4 DAYS 0 06/26/2022 Active Ventolin HFA 108 (90 Base) MCG/ACT Inhalation Aerosol SolutionIndications: COPD, group D, by GOLD 2017 classification ([facility]) INHALE BY MOUTH 2 PUFFS EVERY 4 HOURS NEEDED FOR WHEEZING. BRAND NECESSARY 54 g 3 07/22/2022 Active Triamcinolone Acetonide 55 MCG/ACT Nasal Aerosol (Nasacort Allergy 24HR) Administer 2 Sprays into each nostril in the morning. 1 Each 1 08/20/2022 Active Potassium Chloride ER 20 MEQ Oral Tablet Extended Release TAKE 1 TABLET BY MOUTH EVERY DAY IN THE MORNING 90 Tablet 3 09/22/2022 Active Azithromycin 250 MG Oral Tablet (Zithromax Z-Kota) Take two tablets by mouth on first day, then 1 tablet daily until gone 6 Tablet 0 10/28/2022 Active Vancomycin HCl 125 MG Oral Capsule (Vancocin) 1 CAP DAILY UNTIL FECAL TRANSPLANT. 90 Capsule 1 01/04/2023 Active Trelegy Ellipta 100-62.5-25 MCG/ACT Aerosol Powder Breath Activated (Fluticasone-Umeclid inium-Vilanterol) INHALE 1 PUFF BY MOUTH IN THE MORNING 60 Each 5 01/22/2023 Active Ipratropium [place] 0.02 % Inhalation Solution (Atrovent)Indication s:Stage 3 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 ([facility]) USE 1 VIAL IN NEBULIZER 3 TIMES DAILY FOR SEVERE CHRONIC OBSTRUCTIVE PULMONARY DISEASE 250 mL 4 02/01/2023 Active Levalbuterol HCl 1.25 MG/3ML Inhalation Nebulization Solution (Xopenex)Indications :Chronic obstructive pulmonary disease, unspecified ([facility]) INHALE 1 AMPULE VIA NEBULIZER 3 TIMES A DAY. 810 mL 1 02/04/2023 Active Ferrous Sulfate 325 (65 Fe) MG Oral Tablet (Feosol) Take 1 Tablet by mouth in the morning and 1 Tablet before bedtime. 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 Edentulous Gastroesophageal reflux disease with esophagitis documented as of this encounter (statuses as of 03/31/2023) Resolved Problems Problem Noted Date Diagnosed Date Resolved Date History of Pseudomonas pneumonia 09/23/2020 12/09/2021 Severe chronic obstructive pulmonary disease 7 09/23/2018 Overview: severe by ATS criteria. significant response after bronchodilator COPD exacerbation 10/16/2016 05/03/2017 Inflammation of sacroiliac joint 04/24/2005 03/12/2017 Other abnormal glucose 04/23/200505/03 Overview: glucose 156 Tobacco use disorder 04/22/2005 018 SPRAIN SACROILIAC 03/19/2005 05/03/2017 Other specified disorders of rotator cuff syndrome of shoulder and allied disorders 05/23/2004 05/03/2017 Overview: right shoulder Other disorders of vitreous 06/18/2017 Loss of teeth due to trauma, extraction, or periodontal disease 10/27/2017 documented as of this encounter (statuses as of 03/31/2023) Immunizations Name Administration Dates Next Due Pneumococcal Conjugate Vacc, 13 Valent (Prevnar) 10/20/2017 Pneumococcal Polysaccharide PPV23 (Pneumovax) SEASONAL INFLUENZA, PF, 6 M & Above, IM , (FLULAVAL or FLUZONE) 02/28/2018,03/12/2017 Seasonal Influenza, Split, IIV3, With Preserve, Inj 03/12/2009,04/24/2006 Seasonal Influenza, Trivalent, Adjuvanted, 65+ y rs 04/12/2019 TDAP (age 10 and older)(Boostrix) 10/20/2017 documented as of this encounter Social History Tobacco Use Types Packs/Day Years Used Date Smoking Tobacco: Former Cigarettes 2 59 0 1956 - 04/07/2016 Smokeless Tobacco: Never Comments:started age 16 Alcohol Use Standard Drinks/Week Comments Yes 0 (1 standard drink = 0.6 oz pure alcohol) 3-4 beers per day. Was drinking 8 per day. PHQ-2 Answer Date Recorded PHQ-2 Score 0 11/13/2019 Hunger Vital Sign Answer Date Recorded Within the past 12 months, y ou worried that your food would run out before you got the money to buy more. Never true 09/24/19 21 Within the past 12 months, t he food you bought just didn't last and you didn't have money to get more. Never true 09/23/2020 Sex and Gender Information Value Date Recorded Sex Assigned at Not on file Gender Identity Not on file Sexual Orientation Not on file Job Start Date Occupation Industry Not on file Not on file Not on file documented as of this encounter Miscellaneous Notes * Telephone Encounter - JAH Guzman - 03/31/2023 4:07 PM EDT Call to pt and confirmed return [facility] telemed for 04/19 at 930/10am, pt agreeable documented in this encounter Plan of Treatment Upcoming Encounters Date Type Department Care Team (Late st Contact Info) Description 04/01/2023 3:00 PM EDT Office Visit Family Practice [facility] [address] [place] [address] Kavya Dillard CRNP [address] [place] [id number] 04/19/2023 9:30 AM EST Telemedicine [facility] [place] [address] [place] [address] Taylor Schwartz PA-C [address] [place] [address] Kristi Viveros, [facility] [employer] [employer] [address] [place] [address] Health Maintenance Due Date Last Done Comments Alpha-1 Antitrypsin 1958 *ADVANCE DIRECTIVE NOT ON FILE 09/25/2020 Depression Screening 11/12/2020 11/13/2019 COVID-19 Vaccine ( season) 2023 01/24/2021, 10/07/2020 Influenza Vaccine (FLU shot) (#1) 2023 02/25/2021, 04/12/2019, 04/12/2019, Additional history exists O2 ASSESSMENT COMPLETED IN PAST YEAR FOR COPD 03/09/2024 03/09/2023 DTaP,Tdap,and Td Vaccines (2 - Td or Tdap) 10/21/2027 10/20/2017 LUNG CANCER SCREENING - USE SMARTSET [id number] Completed 06/23/2017 Pneumococcal Vaccine: 65+ Years Completed 10/20/2017, 04/27/2017 Zoster Vaccines Completed 02/08/2021, 07/27/2020 GARDASIL-HPV IMMUNIZATION SERIES Aged Out No longer eligible based on patient's age to complete this topic Hepatitis B Aged Out No longer eligi ble based on patient's age to complete this topic MENINGOCOCCAL (MENACTRA/MENVEO) Aged Out No longer eligible based on patient's age to complete this topic documented as of this encounter Medical Devices Not on filedocumented as of this encounter Care Teams Oyster Sorter Relationship Specialty Start Date End Date Kavya Dillard CRNP [address] [place] [id number] PCP - General Nurse Practitioner 12/31/20 documented as of this encounter
--- OUTSIDE RECORDS SUMMARY | 2023-04-08 22:57 | External Medical Summary ---
Author Name Unknown Address Unknown Organization [id number]:[facility] - [address] [place] [id number] Laboratory Report Ordering Provider Test Date Status ORVILLE SMITH 04/01/2023 15:49:08 Final Observation Date Value Abnormality Reference (Units ) Status Magnesium 04/01/2023 15:49:08 2.0 1.5-2.6 (m g/dL) Final Performing Location [facility] [address] [place] [id number]
--- OUTSIDE RECORDS SUMMARY | 2023-04-08 22:57 | External Medical Summary | Summary of Care ---
Author Name Unknown Organization [facility] Address [address] [place] [address] Phone [phone] Care Team Providers Care Mortgage Processor Name Role Phone Kavya Dillard Primary Care Provider Reason for Visit * Reason Onset Date Comments Advice 03/29/2023 Encounter Details Date Type Department Care Team (Late st Contact Info) Description 03/29/2023 Telephone Family Practice [facility] [address] [place] [address] Kavya Dillard CRNP [address] [place] [address] Advice Allergies No known active allergiesdocumented as of this encounter (statuses as of 03/29/2023) Medications Medication Sig Dispensed Refills Start Date [...] 3 LPM continuous oxygen with exertion DME: [facility] Indications: Inc to 4LPM with ambulation/exerti on [...] COPD, group D, by GOLD 2017 classification ([facility]) INHALE BY MOUTH 2 PUFFS EVERY 4 [...] MORNING 60 Each 5 01/22/2023 Active Ipratropium [place] 0.02 % Inhalation Solution (Atrovent)Indication s:Stage 3 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 ([facility]) USE 1 VIAL IN NEBULIZER 3 TIMES DAILY FOR SEVERE CHRONIC OBSTRUCTIVE PULMONARY DISEASE 250 mL 4 02/01/2023 Active Levalbuterol HCl 1.25 MG/3ML Inhalation Nebulization Solution (Xopenex)Indications :Chronic obstructive pulmonary disease, unspecified ([facility]) INHALE 1 AMPULE VIA NEBULIZER 3 TIMES A DAY. 810 mL 1 02/04/2023 Active Ferrous Sulfate 325 (65 Fe) MG Oral Tablet (Feosol) Take 1 Tablet by mouth in the morning and 1 Tablet before bedtime. 60 Tablet 6 03/09/2023 Active documented as of this encounter (statuses as of 03/29/2023) Active Problems Problem Noted Date Diagnosed Date [...] as of this encounter (statuses as of 03/29/2023) Resolved Problems Problem Noted Date Diagnosed Date [...] as of this encounter (statuses as of 03/29/2023) Immunizations Name Administration Dates Next Due Pneumococcal [...] encounter Miscellaneous Notes * Telephone Encounter - Kayli Horton RN - 03/29/2023 1:08 PM EDT Spoke with spouse, Violeta they will go to [facility] location to get Xray today around 2 PM. * Telephone Encounter - Kayli Horton RN - 03/29/2023 1:00 PM EDT Patient was discharged from [facility] over the weekend and was instructed to get a follow up chest Xray to f/u on pneumothorax, however there is no order in [facility], They would like to complete this at [facility] today, Dr. Molina, Are you agreeable to signing order for follow up chest Xray? Patient is scheduled for OV with Kavya on , (1 view pended, if this is appropriate?) Thank you * Telephone Encounter - JAH Lebron - 03/29/2023 10:15 AM EDT Pt calling asking if needs to have a referral for pulmonary prior to being seen for hosp d/c on 04/01/23. Please advise. documented in this encounter Plan of Treatment Upcoming Encounters Date Type Department Care Team (Late st Contact Info) Description 04/01/2023 3:00 PM EDT Office Visit Family [facility] [address] [address] Kavya Dillard CRNP [address] [address] 04/19/2023 9:30 AM EST Telemedicine [facility] [place] [address] [place] [address] Taylor Schwartz PA-C [address] [place] [address] Kristi Viveros, Community Health Chief Security Officer [address] [place] [address] Scheduled Orders Name Type Priority Associated Diagnoses Orde r Schedule XR CHEST 2 VIEWS Medical Imaging Routine Chronic respiratory failure with hypoxia, on home O2 therapy Ordered: 03/29/2023 Health Maintenance Due Date Last Done Comments [...] 10/20/2017 LUNG CANCER SCREENING - USE SMARTSET 31209 Completed 06/23/2017 Pneumococcal Vaccine: 65+ Years Completed [...] Not on filedocumented as of this encounter Visit Diagnoses Diagnosis Chronic respiratory failure with hypoxia, on home O2 therapy- Primary documented in this encounter Care Teams Mortgage Processor Relationship Specialty Start Date End Date Kavya Dillard CRNP [address] [place] [address] PCP - General Nurse Practitioner 12/31/20 documented as of this encounter
--- OUTSIDE RECORDS SUMMARY | 2023-04-08 22:57 | External Medical Summary | Summary of Care ---
Author Name Unknown Organization [facility] Address [address] [place] [address] Phone [phone] Care Team Providers Care Employment Consultant Name Role Phone Kavya Dillard GARRETT Primary Care Provider Reason for Visit * Reason Onset Date Comments case management 03/29/2023 Encounter Details Date Type Department Care Team (Late st Contact Info) Description 03/29/2023 Commodity Trader Telephone Family Practice [facility] [address] [place] [address] Kayli Horton, RN [address] [place] [address] case management Allergies No known active allergiesdocumented as of [...] 3 LPM continuous oxygen with exertion DME: [facility] Indications: Inc to 4LPM with ambulation/exerti [...] COPD, group D, by GOLD 2017 classification ([facility]) INHALE BY MOUTH 2 PUFFS EVERY 4 [...] MORNING 60 Each 5 01/22/2023 Active Ipratropium [place] 0.02 % Inhalation Solution (Atrovent)Indication s:Stage 3 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 ([facility]) USE 1 VIAL IN NEBULIZER 3 TIMES DAILY FOR SEVERE CHRONIC OBSTRUCTIVE PULMONARY DISEASE 250 mL 4 02/01/2023 Active Levalbuterol HCl 1.25 MG/3ML Inhalation Nebulization Solution (Xopenex)Indications :Chronic obstructive pulmonary disease, unspecified ([facility]) INHALE 1 AMPULE VIA NEBULIZER 3 TIMES [...] Encounter - Kayli Horton RN - 03/29/2023 10:25 AM EDT Commodity Trader Progress Note: Date: 03/29/23 Assigned Patient Tier: 2 Connected with patient's via phone. Verified patient name/. Advised patient that call is being recorded for quality and training purposes. Assessment: katrin noted the following: "he is doing a little better". Improvement in pain from pneumothorax, still with diarrhea. Is taking 2 inhalers that were given to him at time of discharge Anoro and Arnuity. He has a few days worth left. Has upcoming office visit with Kavya Dillard this week. She is asking for a pulmonology referral. He will be getting a repeat Xray today, ordered by the hospital at discharge. Did you receive an alert for an annual wellness visit? No Is this call for a hospital, shelter or rehab facility discharge to home? No Medication Reconciliation: Medication Reconciliation completed: yes Review of Current goals: Discussed the following patient-centered CM goals with the patient during this discussion: -COPD: Achieve successful management of COPD -Status: On Track . -RESPIRATORY: Patient will have respiratory equipment in place and adhere to use -Status: On Track . -GI: Patient will have GI issues addressed -Status: On Track . COPD Patient: YES Oxygen: 2-3LPM via N/C, Cough: NON PRODUCTIVE CHF Patient: NO CM Plan: Reviewed 3 Red Flags with patient. Advised to call CM with any of the following: Red Flag 1: dyspnea, pain, safety/falls Remote Patient Monitoring: At this time, RPM not offered/considered for patient due to N/A. Plan for Future Contacts: Plan to follow up within 1 week to check progress on the following goals/needs respiratory. Planned contacts from the following parties will occur this week: PCP office visit as additional contacts per workflow. Advancement/Closure Plan: Keep patient at current Tier with reassessment per workflow. Patient provided CM contact information and encouraged to call with any changes in condition. SNP Member? No PCP Notified of enrollment in CM/HM program: Yes Is Provider in agreement with POC? Yes Kayli Horton, RN Outpatient Case Management documented in this encounter Plan of Treatment Upcoming Encounters Date Type Department Care Team (Late st Contact Info) Description 04/01/2023 3:00 PM EDT Office Visit [facility] [address] [facility] [place] [address] Kavya Dillard CRNP [address] [place] [address] 04/19/2023 9:30 AM EST Telemedicine [facility] [place] [address] [place] [address] Taylor Schwartz PA-C [address] [place] [address] Kristi Viveros, Community Health Grinding Mill Operator [address] [place] [address] Health Maintenance Due Date Last Done Comments [...] 10/20/2017 LUNG CANCER SCREENING - USE SMARTSET [id number] Completed 06/23/2017 Pneumococcal Vaccine: 65+ Years Completed [...] filedocumented as of this encounter Care Teams Employment Consultant Relationship Specialty Start Date End Date Kavya Dillard CRNP [address] [place] [address] PCP - General Nurse Practitioner 12/31/20 documented as of this encounter
--- OUTSIDE RECORDS SUMMARY | 2023-04-08 22:57 | External Medical Summary | Summary of Care ---
Author Name Unknown Organization [facility] Address [address] [place] [address] Phone [phone] Care Team Providers Care Pellet Press Operator Name Role Phone Kavya Dillardlle GARRETT Primary Care Provider Reason for Visit * Reason Onset Date Comments Appointment 03/24/2023 Encounter Details Date Type Department Care Team Description 03/24/2023 Telephone [facility] [place] [place] [address] [place] [address] Services, Scheduling [address] [place] [address] Appointment (//) Allergies No known active allergiesdocumented as of this encounter (statuses as of 03/24/2023) Medications Medication Sig Dispensed Refills Start Date [...] 3 LPM continuous oxygen with exertion DME: [facility] Indications: Inc to 4LPM with ambulation/exerti on [...] COPD, group D, by GOLD 2017 classification ([facility]) INHALE BY MOUTH 2 PUFFS EVERY [...] MORNING 60 Each 5 01/22/2023 Active Ipratropium [place] 0.02 % Inhalation Solution (Atrovent)Indication s:Stage 3 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 ([facility]) USE 1 VIAL IN NEBULIZER 3 TIMES DAILY FOR SEVERE CHRONIC OBSTRUCTIVE PULMONARY DISEASE 250 mL 4 02/01/2023 Active Levalbuterol HCl 1.25 MG/3ML Inhalation Nebulization Solution (Xopenex)Indications :Chronic obstructive pulmonary disease, unspecified ([facility]) INHALE 1 AMPULE VIA NEBULIZER 3 TIMES A DAY. 810 mL 1 02/04/2023 Active Ferrous Sulfate 325 (65 Fe) MG Oral Tablet (Feosol) Take 1 Tablet by mouth in the morning and 1 Tablet before bedtime. 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 documented as of this encounter (statuses as of 03/24/2023) Resolved Problems Problem Noted Date Resolved Date History of Pseudomonas pneumonia 09/23/2020 12/09/2021 Severe chronic obstructive pulmonary disease 09/23/2018 Overview: severe by ATS criteria. significant response after bronchodilator COPD exacerbation 10/16/2016 05/03/2017 Inflammation of sacroiliac joint 04/24/2005 03/12/2017 Other abnormal glucose 04/23/2005 7 Overview: glucose 156 Tobacco use disorder 04/22/2005 10/20/2017 SPRAIN SACROILIAC 03/19/2005 05/03/2017 Other specified disorders of rotator cuff syndrome of shoulder and allied disorders 05/23/2004 05/03/2017 Overview: right shoulder Other disorders of vitreous 06/07 Loss of teeth due to trauma, extraction, or periodontal disease 10/27/2017 documented as of this encounter (statuses as of 03/24/2023) Immunizations Name Administration Dates Next Due Pneumococcal [...] per day. Was drinking 8 per day. Food Insecurity Answer Date Recorded Within the past 12 months, y ou worried that your food would run out before you got money to buy more. Never true 09/23/2020 Within the past 12 months, t he food you bought just didn't last and you didn't have money to get more. Never true 09/23/2020 Sex Assigned at Date Recorded Not on file Job Start Date Occupation Industry Not on file Not on file Not on file documented as of this encounter Miscellaneous Notes * Telephone Encounter - JAH Guzman - 03/24/2023 12:53 PM EDT LMOM for pt to see if he went to the ER as directed from Ivanna Arora, left msg that provider wasn'tgoing to repeat mobile cxr documented in this encounter Plan of Treatment Upcoming Encounters Date Type Specialty Care Team Description 04/19/2023 Telemedicine [facility] Taylor Schwartz PA-C [address] [place] [address] Kristi Viveros, Community Health [place] [employer] Member [address], [place] [id number] Health Maintenance Due Date Last Done Comments [...] 10/20/2017 LUNG CANCER SCREENING - USE SMARTSET [id number] Completed 06/23/2017 Pneumococcal Vaccine: 65+ Years Completed [...] filedocumented as of this encounter Care Teams Pellet Press Operator Relationship Specialty Start Date End Date Kavya Dillard CRNP [address] [place] [address] PCP - General Nurse Practitioner 12/31/20 documented as of this encounter
--- OUTSIDE RECORDS SUMMARY | 2023-04-08 22:57 | External Medical Summary ---
Author Name Unknown Address Unknown Organization K01:[facility] [place] [address] [place] [address] Laboratory Report Ordering Provider Test Date Status ORVILLE SMITH 04/01/2023 15:49:08 Final Observation Date Value Abnormality Reference (Units ) Status BUN 04/01/2023 15:49:08 15 6-20 (mg/dL) Final Creatinine 04/01/2023 15:49:08 1.0 0.6-1.2 (mg/dL) Final Glomerular filtration rate/1.73 sq M.predicted [Volume Rate/Area] in Serum, Plasma or Blood by Creatinine-based formula (CKD-EPI) 04/01/2023 15:49:08 77 >=60 (mL/min) Final eGFR is calculated based on the CKD-EPI 2020 equation SODIUM 04/01/2023 15:49:08 146 135-146 (m mol/L) Final Potassium 04/01/2023 15:49:08 3.6 3.5-5.1 (m mol/L) Final Cl 04/01/2023 15:49:08 111 Above high normal 98 -107 (mmol/L) Final CO2 04/01/2023 15:49:08 23 22-32 (mmo l/L) Final Anion gap 04/01/2023 15:49:08 12 7-15 (mmol /L) Final Glucose 04/01/2023 15:49:08 126 Above high normal 70 -120 (mg/dL) Final Calcium 04/01/2023 15:49:08 9.5 8.4-10.2 ( mg/dL) Final Performing Location [facility] [place] - [address] [place] [address]
--- OUTSIDE RECORDS SUMMARY | 2023-04-08 22:57 | External Medical Summary | Summary of Care ---
Author Name Unknown Organization [facility] Address [address] [place] [address] Phone [phone] Care Team Providers Care Quality Assurance Technician Name Role Phone Kavya Dillard Primary Care Provider Reason for Referral * Evaluate & Treat - Unlimited Visits (Within 10 days (routine)) - Authorized Specialty Diagnoses / Procedures Referred By Contact Referred To Contact Thoracic and Cardiac Surgery / Cardiothoracic Surgery Diagnoses Bleb, lung (HCC) Kavya Dillard CRNP [address] [place] [address] Referral ID Status Reason Start Date Expiration Date Visits Requested Visits Authorized [id number] Authorized Specialty Services Required [phone] Question Answer Referral Priority Within 10 days (routine) Where should this appointment be scheduled? [facility] Primary Reason for Referral? Other Does your patient require surgical evaluation and/or treatment for a disease of the chest, other than heart disease? Yes Comments blebectomy * Evaluate & Treat - Unlimited Visits (Within 10 days (routine)) - Authorized Specialty Diagnoses / Procedures Referred By Nicole cisse Referred To Contact Pulmonary Diseases / Pulmonary Diagnoses Chronic respiratory failure with hypoxia, on home O2 therapy COPD, group D, by GOLD 2017 classification (HCC) Bleb, lung (HCC) Other pneumothorax Kavya Dillard CRNP [address] [place] [address] Referral ID Status Reason Start Date Expiration Date Visits Requested Visits Authorized [id number] Authorized Specialty Services Required [phone] Question Answer Referral Priority Within 10 days (routine) Where should this appointment be scheduled? External Primary Reason for Referral? Other Comments Chronic respiratory failure Bleb and pneumothorax Reason for Visit * Reason Onset Date Comments Hospital Follow-Up Pt here for a hospital f/u from 03/26 for spontaneous pneumothorax, hypomagnesemia and alcohol use disorder Medication Administration 04/01/2023 Flu an d/or Pneumo Inj Encounter Details Date Type Department Care Team (Latest Contact Info) Description 04/01/2023 3:00 PM EDT Office Visit Family [facility] [address] [place] [address] Kavya Dillard CRNP [address] [place] [address] Need for prophylactic vaccination and inoculation against influenza*; Bleb, lung (HCC); Other pneumothorax; Low magnesium level; End stage COPD (HCC); COPD, group D, by GOLD 2017 classification (HCC); Chronic respiratory failure with hypoxia, on home O2 therapy ; Severe protein-calorie malnutrition (HCC); Recurrent colitis due to Clostridioides difficile; Gastroesophageal reflux disease with esophagitis without hemorrhage; Persistent atrial fibrillation (HCC); Alcohol use; Iron deficiency anemia secondary to inadequate dietary iron intake Allergies No known active allergiesdocumented as of this encounter (statuses as of 04/01/2023) Medications Medication Sig Dispensed Refills Start Date End Date Status acetaminophen (TYLENOL) 500 MG Tablet Take 1 Tablet by mouth every 4 hours as needed for Pain. 0 11/18/2017 Active Multiple Vitamins-Minerals (MULTIVITAMIN ADULTS) TABS Take by mouth daily. 0 Active oxygen IN GASIndications:Inc to 4LPM with ambulation/exertion 2.5 lpm at rest 3 LPM continuous oxygen with exertion DME: [facility] Indications: Inc to 4LPM with ambulation/exert ion 1 Each 0 04/01/2021 Active Saccharomyces boulardii 250 MG Oral Capsule (Florastor) Take 1 Capsule by mouth in the morning. Florastor . 0 Active Famotidine 20 MG Oral Tablet (Pepcid) Take by mouth 1 Tablet as needed before bedtime for Heartburn. 30 Tablet 11 02/24/2022 Active Folic Acid 1 MG Oral TabletIndications:C hronic respiratory failure with hypoxia, on home O2 [...] EVERY DAY 90 Tablet 3 06/30/2022 Active guaiFENesin 200 MG Oral Tablet TAKE 1 TABLET BY MOUTH EVERY 6 HOURS NEEDED FOR CONGESTION FOR 4 DAYS 0 06/26/2022 Active Ventolin HFA 108 (90 Base) MCG/ACT Inhalation Aerosol SolutionIndications :COPD, group D, by GOLD 2017 classification ([facility]) INHALE BY MOUTH 2 PUFFS EVERY 4 HOURS NEEDED FOR WHEEZING. BRAND NECESSARY 54 g 3 07/22/2022 Active Potassium Chloride ER 20 MEQ Oral Tablet Extended Release TAKE 1 TABLET BY MOUTH EVERY DAY IN THE MORNING 90 Tablet 3 09/22/2022 Active Vancomycin HCl 125 MG Oral Capsule (Vancocin) 1 CAP DAILY UNTIL FECAL TRANSPLANT. 90 Capsule 1 01/04/2023 Active Trelegy Ellipta 100-62.5-25 MCG/ACT Aerosol Powder Breath Activated (Fluticasone-Umecli dinium-Vilanterol) INHALE 1 PUFF BY MOUTH IN THE MORNING 60 Each 5 01/22/2023 Active Ipratropium Clarence 0.02 % Inhalation Solution (Atrovent)Indicatio ns:Stage 3 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 ([facility]) USE 1 VIAL IN NEBULIZER 3 TIMES DAILY FOR SEVERE CHRONIC OBSTRUCTIVE PULMONARY DISEASE 250 mL 4 02/01/2023 Active Levalbuterol HCl 1.25 MG/3ML Inhalation Nebulization Solution (Xopenex)Indication s:Chronic obstructive pulmonary disease, unspecified (HCC) INHALE 1 AMPULE VIA NEBULIZER 3 TIMES A DAY. 810 mL 1 02/04/2023 Active Ferrous Sulfate 325 (65 Fe) MG Oral Tablet (Feosol) Take 1 Tablet by mouth in the morning and 1 Tablet before bedtime. 60 Tablet 6 03/09/2023 Active Magnesium Chloride 64 MG Oral Tablet Delayed Release (Mag-64) Take 1 Tablet by mouth in the morning and 1 Tablet before bedtime. 0 03/27/2023 Active hydrocortisone acetate (ANUSOL-HC) 25 MG suppository Administer 25 mg into the rectum 2 times a day as needed for Hemorrhoids. 0 3 Discontinu ed(Medicat ion List Clean Up) Lidocaine 5 % External Patch (Lidoderm) AT BEDTIME 0 07/07/2022 3 Discontinu ed(Medicat ion List Clean Up) Triamcinolone Acetonide 55 MCG/ACT Nasal Aerosol (Nasacort Allergy 24HR) Administer 2 Sprays into each nostril in the morning. 1 Each 1 08/20/2022 3 Discontinu ed(Medicat ion List Clean Up) Azithromycin 250 MG Oral Tablet (Zithromax Z-Kota) Take two tablets by mouth on first day, then 1 tablet daily until gone 6 Tablet 0 10/28/2022 3 Discontinu ed(Medicat ion List Clean Up) documented as of this encounter (statuses as of 04/01/2023) Active Problems Problem Noted Date Diagnosed Date [...] as of this encounter (statuses as of 04/01/2023) Resolved Problems Problem Noted Date Diagnosed Date [...] as of this encounter (statuses as of 04/01/2023) Immunizations Name Administration Dates Next Due Pneumococcal Conjugate Vacc, 13 Valent (Prevnar) 10/20/2017 Pneumococcal Polysaccharide PPV23 (Pneumovax) SEASONAL INFLUENZA, PF, 6 M & Above, IM , (FLULAVAL or FLUZONE) 02/28/2018,03/12/2017 Seasonal Influenza, Quadrivalent Hd (Fluzone Hd) 04/01/2023 Seasonal Influenza, Split, IIV3, With Preserve, Inj 03/12/2009,04/24/2006 Seasonal Influenza, Trivalent, Adjuvanted, 65+ y rs 04/12/2019 TDAP (age 10 and older)(Boostrix) 10/20/2017 documented as of this encounter Social History Tobacco Use Types Packs/Day Years Used Date Smoking Tobacco: Former Cigarettes 2 59 0 1956 - 04/07/2016 Smokeless Tobacco: Never Tobacco Cessation:Counseling Given: Not Answered Comments:started age 16 Alcohol Use Standard Drinks/Week [...] on file documented as of this encounter Last Filed Vital Signs Vital Sign Reading Time Taken Comments Blood Pressure 118/60 04/01/2023 3:08 PM EDT Pulse 93 04/01/2023 3:08 PM EDT Temperature 36.1 C (97 F) 04/01/2023 3:08 PM EDT Respiratory Rate 16 04/01/2023 3:08 PM EDT Oxygen Saturation 98% 04/01/2023 3:08 PM EDT Inhaled Oxygen Concentration - - Weight 54.3 kg (119 lb 9.6 oz) 04/01/2023 3:08 P M EDT Height 167.6 cm (5' 6") 04/01/2023 3:08 PM EDT Body Mass Index 19.3 04/01/2023 3:08 PM EDT documented in this encounter Patient Instructions * Patient Instructions* Kathya Aranda LPN - 04/01/2023 3:10 PM EDT ~~PATIENT INSTRUCTIONS FOR FLU SHOT~~ Possible side effects of influenza vaccine, (flu shot), are usually mild and include: 1. Soreness or redness at injection site 2. Low grade fever 3. Body aches You may use Tylenol/Acetaminophen as needed for these symptoms. LET YOUR DOCTOR KNOW IMMEDIATELY IF YOU HAVE DIFFICULTY BREATHING OR SWALLOWING, EXPERIENCE ITCHINGOF FEET OR HANDS, HAVE SWELLING OF EYES, FACE OR INSIDE OF NOSE. documented in this encounter Progress Notes * Kavya GeorgeGARRETT barbosa - 04/01/2023 3:14 PM EDT Follow up Family Medicine Visit CC: Chief Complaint Patient presents with Hospital Follow-Up Pt here for a hospital f/u from 03/26 for spontaneous pneumothorax, hypomagnesemia and alcohol use disorder Medication Administration Flu and/or Pneumo Inj History of Present Illness: Jer Abreu Jr. is a 82 year old male presenting for hospital follow up. He was admitted to [facility] for spontaneaous pneumothorax. Discharged home on 2.5 L 28/12. During hospitalization H and H reduced but stable. Magnesium needs recheck. Overall he is feeling improved. Less chest wall pain. SOB at baseline and oxygen demand is not increased. Social History Socioeconomic History Marital status: Spouse name: Not on file Number of children: 6 Years of education: Not on file Highest education level: Not on file Occupational History Not on file Tobacco Use Smoking status: Former Packs/day: 2.00 Years: 59.00 Additional pack years: 0.00 Total pack years: 118.00 Types: Cigarettes Start date: 1956 Quit date: 04/07/2016 Years since quittin.9 Smokeless tobacco: Never Tobacco comments: started age 16 Vaping Use Vaping Use: Never used Substance and Sexual Activity Alcohol use: Yes Comment: 3-4 beers per day. Was drinking 8 per day. Drug use: No Sexual activity: Yes Partners: Female Other Topics Concern Not on file Social History Narrative Not on file Social Determinants of Health Financial Resource Strain: Not on file Food Insecurity: No Food Insecurity (09/23/2020) Hunger Vital Sign Worried About Running Out of Food in the Last Year: Never true Ran Out of Food in the Last Year: Never true Transportation Needs: Not on file Physical Activity: Not on file Stress: Not on file Social Connections: Not on file Intimate Partner Violence: Not on file Housing Stability: Not on file PMH: Past Medical History: Diagnosis Date Acute exacerbation of COPD with asthma 04/23/2017 [facility] Arthritis Edentulous Gastroesophageal reflux disease with esophagitis Herpes zoster 01/11/2019 right neck and scalp Inflammation of sacroiliac joint (HCC) 04/24/2005 Loss of teeth due to trauma, extraction, or periodontal disease Other disorders of vitreous 12/2000 Posterior vitreous detachment OS Other specified disorders of rotator cuff syndrome of shoulder and allied disorders 05/2004 right shoulder Pneumonia 06/13/2017 left basal infiltrate Pneumonia due to Pseudomonas (HCC) 05/20/2017 Severe chronic obstructive pulmonary disease (HCC) 10/28/2016 severe by ATS criteria. significant response after bronchodilator TICK BITE RIGHT FOOT 02/2005 Tobacco use disorder Past Surgical History: Procedure Laterality Date CT CHEST W CONTRAST 06/20/2017 emphysematous change with scattered interstitial and parenchymal fibrosis, superimposed infiltrative /nodular process left base CTA CHEST NON-CORONARY W CONTRAST 04/23/2017 no PE small focal consolidation in LLL, likely pneumonia ECHO, COMPLETE (2D), TRANS-THORACIC 04/23/2017 normal LV size and function, EF 55-60% OTHER ACT [address] Orellana (04-08-21) REMOVE CATARACT, INSERT LENS PROSTH Right 06/12/2019 [facility] REMOVE CATARACT, INSERT LENS PROSTH Left 06/26/2019 [facility] Outpatient Medications Marked as Taking for the 04/01/23 encounter (Office Visit) with GARRETT Root Medication Sig Magnesium Chloride 64 MG Oral Tablet Delayed Release (Mag-64) Take 1 Tablet by mouth in the morningand 1 Tablet before bedtime. Ferrous Sulfate 325 (65 Fe) MG Oral Tablet (Feosol) Take 1 Tablet by mouth in the morning and 1 Tablet before bedtime. Levalbuterol HCl 1.25 MG/3ML Inhalation Nebulization Solution (Xopenex) INHALE 1 AMPULE VIA NEBULIZER 3 TIMES A DAY. Ipratropium Clarence 0.02 % Inhalation Solution (Atrovent) USE 1 VIAL IN NEBULIZER 3 TIMES DAILY FORSEVERE CHRONIC OBSTRUCTIVE PULMONARY DISEASE Trelegy Ellipta 100-62.5-25 MCG/ACT Aerosol Powder Breath Activated (Psfqfhbebud-Kwovvdozcvzn-Ittkniawyw) INHALE 1 PUFF BY MOUTH IN THE MORNING Vancomycin HCl 125 MG Oral Capsule (Vancocin) 1 CAP DAILY UNTIL FECAL TRANSPLANT. Potassium Chloride ER 20 MEQ Oral Tablet Extended Release TAKE 1 TABLET BY MOUTH EVERY DAY IN THE MORNING Ventolin HFA 108 (90 Base) MCG/ACT Inhalation Aerosol Solution INHALE BY MOUTH 2 PUFFS EVERY 4 HOURS NEEDED FOR WHEEZING. BRAND NECESSARY Thiamine HCl 100 MG Oral Tablet (vitamin B-1) TAKE 1 TABLET BY MOUTH EVERY DAY Vitamin B-12 100 MCG Oral Tablet (vitamin B-12) TAKE 1 TABLET BY MOUTH DAILY Roflumilast 500 MCG Oral Tablet (Daliresp) Take 1 Tablet (500 mcg) by mouth in the morning. Folic Acid 1 MG Oral Tablet Take 1 Tablet (1 mg) by mouth in the morning. Saccharomyces boulardii 250 MG Oral Capsule (Florastor) Take 1 Capsule by mouth in the morning. Florastor . oxygen IN GAS 2.5 lpm at rest 3 LPM continuous oxygen with exertion DME: [facility] Indications: Inc to 4LPM with ambulation/exertion acetaminophen (TYLENOL) 500 MG Tablet Take 1 Tablet by mouth every 4 hours as needed for Pain. Multiple Vitamins-Minerals (MULTIVITAMIN ADULTS) TABS Take by mouth daily. Review of patient's allergies indicates: No Known Allergies Most Recent Immunizations Administered Date(s) Administered PPD 04/22/2005 Pneumococcal Conjugate Vacc, 13 Valent (Prevnar) 10/20/2017 Pneumococcal Polysaccharide PPV23 (Pneumovax) 04/27/2017 SEASONAL INFLUENZA, PF, 6 M & Above, IM , (FLULAVAL or FLUZONE) 02/28/2018 Seasonal Influenza, Split, IIV3, With Preserve, Inj 03/12/2009 Seasonal Influenza, Trivalent, Adjuvanted, 65+ yrs 04/12/2019 TDAP (age 10 and older)(Boostrix) 10/20/2017 Review of Systems: Review of Systems Constitutional: Positive for fatigue. Respiratory: Positive for cough, shortness of breath and wheezing. At baseline Cardiovascular: Positive for chest pain. Resolved now Gastrointestinal: Positive for diarrhea. Negative for abdominal pain, nausea and vomiting. Neurological: Negative for dizziness. Psychiatric/Behavioral: Negative for sleep disturbance. Physical Exam: BP 118/60 | Pulse 93 | Temp 36.1 C (97 F) | Resp 16 | Ht 1.676 m (5' 6") | Wt 54.3 kg (119 lb 9.6 oz) | SpO2 98% | BMI 19.30 kg/m | BSA 1.59 m Physical Exam Constitutional: Comments: Lean HENT: Head: Normocephalic. Eyes: Pupils: Pupils are equal, round, and reactive to light. Cardiovascular: Rate and Rhythm: Normal rate and regular rhythm. Pulmonary: Effort: Pulmonary effort is normal. Breath sounds: Decreased breath sounds present. No wheezing. Abdominal: General: Bowel sounds are normal. Palpations: Abdomen is soft. Tenderness: There is no abdominal tenderness. Neurological: Mental Status: He is alert. Psychiatric: Attention and Perception: Attention normal. Mood and Affect: Mood normal. Speech: Speech normal. Behavior: Behavior normal. Behavior is cooperative. Thought Content: Thought content normal. Cognition and Memory: Cognition and memory normal. Judgment: Judgment normal. Assessment and Plan: 1. Bleb, lung (HCC) Large of left lung causing recent pneumothorax S/p [facility] hospital admission He will follow up with pulm at [facility] No invasive intervention was required - PULMONARY REFERRAL OP - THORACIC SURGERY REFERRAL OP 2. Other pneumothorax Resolved on x ray here today - PULMONARY REFERRAL OP 3. Low magnesium level Recheck - MAGNESIUM; Future - BASIC METABOLIC PANEL; Future - MAGNESIUM - BASIC METABOLIC PANEL 4. End stage COPD (HCC) Patient states he does not want to go to hospital anymore but prefers not to be on hospice. He is aware that he can change his mind anytime. 5. COPD, group D, by GOLD 2017 classification ([facility]) - PULMONARY REFERRAL OP 6. Chronic respiratory failure with hypoxia, on home O2 therapy On 2.5LPM 28/12 - PULMONARY REFERRAL OP 7. Need for prophylactic vaccination and inoculation against influenza - INFLUENZA VACC, QUAD, HIGH DOSE (FLUZONE HD) 8. Severe protein-calorie malnutrition (HCC) Weight is up to 119 9. 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 Gastroesophageal reflux disease with esophagitis without hemorrhage stable 11. Persistent atrial fibrillation (HCC) Rate controlled 12. Alcohol use Drinking about 1 beer a day 13. Iron deficiency anemia secondary to inadequate dietary iron intake Stable in hospital , recheck I have advised the patient to call our office incase of any worsening or new symptoms. I spent a total of 40-54 minutes (exact time 56 mins) on the date of service in preparation, delivery, and documentation of the care provided to Jer Abreu excluding any time spent in the performance of separately billed services. Randy AMBER, GARRETT [facility] * Kathya Aranda LPN - 04/01/2023 3:10 PM EDT PRE - ADMINISTRATION DOCUMENTATION Are you experiencing any cold symptoms or fever? No Have you had Guillain-Clayton Syndrome (an illness that causes paralysis) within the last 6 weeks? No Have you had the flu shot in the past? YES Have you ever had a reaction to the flu shot? No Kathya Aranda LPN, 04/01/2023 3:10 PM Immunization Administration Documentation Time Out Procedure Performed: Yes Patient Identified (Ask Name/Date of ): Yes Does the patient have a fever greater than 101 degrees today? No Patient allergic to latex? No VFC Stock: No Immunization(s) verified: Yes, Immunization Name: Flu, VIS Sheet(s) given: Yes Verified Side and Site: Yes Verified Shot(s) with Parent(s)/Patient: Yes documented in this encounter Plan of Treatment Upcoming Encounters Date Type Department Care Team (Late st Contact Info) Description 04/19/2023 9:30 AM EST Telemedicine [facility] [address] [place] [address] Taylor Schwartz PA-C [address] [place] [address] Kristi Viveros, [facility] [employer] [address] [place] [address] 07/06/2023 3:00 PM EST Office Visit Family Practice [facility] [address] [facility] [place] [address] Kavya Dillard CRNP [address] [place] [address] 08/03/2023 2:20 PM EST Office Visit Pulmonary Medicine, [facility] [address] [facility] [place] [address] Uday Jones, DO [address] [place] [address] Pending Results Name Type Priority Associated Diagnoses Date /Time MAGNESIUM Lab Routine Low magnesium level 04/01/2023 3:49 PM EDT BASIC METABOLIC PANEL Lab Routine Low magnesium level 04/01/2023 3:49 PM EDT Scheduled Orders Name Type Priority Associated Diagnoses Orde r Schedule MAGNESIUM Lab Routine Low magnesium level Expected: 04/01/2023 (Approximate), Expires: 03/31/2024 BASIC METABOLIC PANEL Lab Routine Low magnesium level Expected: 04/01/2023 (Approximate), Expires: 03/31/2024 Scheduled Referrals Name Type Priority Associated Diagnoses Orde r Schedule PULMONARY REFERRAL OP Referral Within 10 days (routine) Chronic respiratory failure with hypoxia, on home O2 therapy COPD, group D, by GOLD 2017 classification (HCC) Bleb, lung (HCC) Other pneumothorax Ordered: 04/01/2023 THORACIC SURGERY REFERRAL OP Referral Within 10 days (routine) Bleb, lung (HCC) Ordered: 04/01/2023 Health Maintenance Due Date Last Done Comments Alpha-1 Antitrypsin 1960 *ADVANCE DIRECTIVE NOT ON FILE 09/25/2020 Depression Screening 11/12/2020 11/13/2019 COVID-19 Vaccine ( season) 2023 01/24/2021, 10/07/2020 O2 ASSESSMENT COMPLETED IN PAST YEAR FOR COPD 03/09/2024 03/09/2023 DTaP,Tdap,and Td Vaccines (2 - Td or Tdap) 10/21/2027 10/20/2017 LUNG CANCER SCREENING - USE SMARTSET [id number] Completed 06/23/2017 Pneumococcal Vaccine: 65+ Years Completed 10/20/2017, 04/27/2017 Zoster Vaccines Completed 02/08/2021, 07/27/2020 Influenza Vaccine (FLU shot) Completed , 02/25/2021, 04/12/2019, Additional history exists GARDASIL-HPV IMMUNIZATION SERIES Aged Out No longer [...] as of this encounter Visit Diagnoses Diagnosis Need for prophylactic vaccination and inoculation against influenza- Primary Bleb, lung (HCC) Emphysematous bleb Other pneumothorax Low magnesium level End stage COPD (HCC) Chronic airway obstruction, not elsewhere classified COPD, group D, by GOLD 2017 classification (HCC) Chronic respiratory failure with hypoxia, on home O2 therapy Severe protein-calorie malnutrition (HCC) Other severe protein-calorie malnutrition Recurrent colitis due to Clostridioides difficile Gastroesophageal reflux disease with esophagitis without hemorrhage Persistent atrial fibrillation (HCC) Atrial fibrillation Alcohol use Iron deficiency anemia secondary to inadequate dietary iron intake documented in this encounter Care Teams Quality Assurance Technician Relationship Specialty Start Date End Date Kavya Dillard CRNP [address] [place] [id number] PCP - General Nurse Practitioner 12/31/20 documented as of this encounter
--- OUTSIDE RECORDS SUMMARY | 2023-04-08 22:58 | External Medical Summary | Summary of Care ---
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 Yes All sections of this form must be filled out completely. Forms with missing or illegible information will be returned for completion. This form should not be modified in any way. Forms that have been modified will be returned. This form may not be submitted by a home health agency. It must be complete and submitted by the ordering provider. One full business day lead time is required and service will be scheduled based on the next service day for the area [facility] Home Phlebotomy does not service every geographical location on a daily basis. Contact [facility] Client Services at to find out service days for a specific location. Medical Laboratory [address] [place] [address] Warren Parks M.D. Director and Executive Sales Manager Patient Name: Jer Abreu Jr. : 1940 Sex: male Address [address] [facility] [address] Provider: Self? GARRETT Fabian? Diagnosis: Tests Requested CBC, CMP Reason for Visit * Reason Comments [facility]: Telehealth Encounter Details Date Type Department Care Team Description 02/02/2023 Telemedicine [facility], [place] [address] [place] [address] Taylor Schwartz PA-C [address] [place] [address] Kristi Viveros, Community Health Scientific Advisor [address] [place] [address] Chronic respiratory failure with hypoxia, on home O2 therapy ([facility])*; Recurrent colitis due to Clostridioides difficile; COPD, group D, by GOLD 2017 classification ([facility]) Allergies No known active allergiesdocumented as of this encounter (statuses as of 02/05/2023) Medications Medication Sig Dispensed Refills Start Date End Date Status acetaminophen (TYLENOL) 500 MG Tablet Take 1 Tablet by mouth every 4 hours as needed for Pain. 0 8 Active hydrocortisone acetate (ANUSOL-HC) 25 MG suppository Administer 25 mg into the rectum 2 times a day as needed for Hemorrhoids. 0 Active Multiple Vitamins-Minerals (MULTIVITAMIN ADULTS) TABS Take by mouth daily. 0 Active oxygen IN GASIndications:Inc to 4LPM with ambulation/exertion 2.5 lpm at rest 3 LPM continuous oxygen with exertion DME: [facility] Indications: Inc to 4LPM with ambulation/exer tion 1 Each 0 1 Active Saccharomyces boulardii 250 MG Oral Capsule (Florastor) Take 1 Capsule by mouth in the morning. Florastor . 0 Active Famotidine 20 MG Oral Tablet (Pepcid) Take by mouth 1 Tablet as needed before bedtime for Heartburn. 30 Tablet 11 2 Active Folic Acid 1 MG Oral TabletIndications:C hronic respiratory failure with hypoxia, on home O2 therapy ([facility]) Take 1 Tablet (1 mg) by mouth in the morning. 90 Tablet 3 2 Active Roflumilast 500 MCG Oral Tablet (Daliresp) Take 1 Tablet (500 mcg) by mouth in the morning. 180 Tablet 4 2 Active Omeprazole 40 MG Oral Capsule Delayed Release (PriLOSEC) TAKE 1 CAPSULE BY MOUTH DAILY. 1 HOUR BEFORE THE FIRST MEAL OF THE DAY 90 Capsule 1 3 Active Vitamin B-12 100 MCG Oral Tablet (vitamin B-12) TAKE 1 TABLET BY MOUTH DAILY 90 Tablet 3 3 Active Thiamine HCl 100 MG Oral Tablet (vitamin B-1) TAKE 1 TABLET BY MOUTH EVERY DAY 90 Tablet 3 3 Active predniSONE 20 MG Oral Tablet (Deltasone) 0 3 Active Lidocaine 5 % External Patch (Lidoderm) AT BEDTIME 0 3 Active guaiFENesin 200 MG Oral Tablet TAKE 1 TABLET BY MOUTH EVERY 6 HOURS NEEDED FOR CONGESTION FOR 4 DAYS 0 3 Active Ventolin HFA 108 (90 Base) MCG/ACT Inhalation Aerosol SolutionIndications :COPD, group D, by GOLD 2017 classification ([facility]) INHALE BY MOUTH 2 PUFFS EVERY 4 HOURS NEEDED FOR WHEEZING. BRAND NECESSARY 54 g 3 3 Active Triamcinolone Acetonide 55 MCG/ACT Nasal Aerosol (Nasacort Allergy 24HR) Administer 2 Sprays into each nostril in the morning. 1 Each 1 3 Active Potassium Chloride ER 20 MEQ Oral Tablet Extended Release TAKE 1 TABLET BY MOUTH EVERY DAY IN THE MORNING 90 Tablet 3 3 Active Azithromycin 250 MG Oral Tablet (Zithromax Z-Kota) Take two tablets by mouth on first day, then 1 tablet daily until gone 6 Tablet 0 3 Active Vancomycin HCl 125 MG Oral Capsule (Vancocin) 1 CAP DAILY UNTIL FECAL TRANSPLANT. 90 Capsule 1 3 Active Trelegy Ellipta 100-62.5-25 MCG/ACT Aerosol Powder Breath Activated (Fluticasone-Umecli dinium-Vilanterol) INHALE 1 PUFF BY MOUTH IN THE MORNING 60 Each 5 3 Active Ipratropium [place] 0.02 % Inhalation Solution (Atrovent)Indicatio ns:Stage 3 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 ([facility]) USE 1 VIAL IN NEBULIZER 3 TIMES DAILY FOR SEVERE CHRONIC OBSTRUCTIVE PULMONARY DISEASE 250 mL 4 3 Active Vancomycin HCl 125 MG Oral Capsule (Vancocin) Take 1 Capsule by mouth in the morning and 1 Capsule at noon and 1 Capsule in the evening and 1 Capsule before bedtime. Do all this for 14 days. 56 Capsule 0 3 02/17/20 23 Active predniSONE 20 MG Oral Tablet (Deltasone) Take 2 Tablets by mouth in the morning for 5 days. 10 Tablet 0 3 02/08/20 23 Active Levalbuterol HCl 1.25 MG/3ML Inhalation Nebulization Solution (Xopenex) 3 mL. 0 2 02/05/20 23 Discontinued documented as of this encounter (statuses as of 02/05/2023) Active Problems Problem Noted Date Severe protein-calorie [...] as of this encounter (statuses as of 02/05/2023) Resolved Problems Problem Noted Date Resolved Date [...] as of this encounter (statuses as of 02/05/2023) Immunizations Name Administration Dates Next Due Pneumococcal Conjugate Vacc, 13 Valent (Prevnar) 10/20/2017 Pneumococcal Polysaccharide PPV23 (Pneumovax) Seasonal Influenza, PF, 6 mo ns & Above, IM , (Flulaval) 02/28/2018,03/12/2017 Seasonal Influenza, Split, IIV3, With Preserve, [...] Sign Reading Time Taken Comments Blood Pressure 120/58 02/02/2023 1:14 PM EDT Pulse 71 02/02/2023 1:14 PM EDT Temperature 36.7 C (98 F) 02/02/2023 1:14 PM EDT Respiratory Rate - - Oxygen Saturation 96% 02/02/2023 1:14 PM EDT Inhaled Oxygen Concentration - - Weight - - Height - - Body Mass Index - - documented in this encounter Progress Notes * Taylor Ruiz PA-C - 02/02/2023 1:08 PM EDT [facility] Provider Telemedicine Visit Date: 02/02/2023 Time: 1:08 PM Assessment/Plan: 1. Chronic respiratory failure with hypoxia, on home O2 therapy (HCC) - CBC WITH WBC DIFFERENTIAL AND ANEMIA REFLEX WORKUP; Future - COMPREHENSIVE METABOLIC PANEL; Future - HOME PHLEBOTOMY REFERRAL OP 2. Recurrent colitis due to Clostridioides difficile - CBC WITH WBC DIFFERENTIAL AND ANEMIA REFLEX WORKUP; Future - COMPREHENSIVE METABOLIC PANEL; Future - HOME PHLEBOTOMY REFERRAL OP 3. COPD, group D, by GOLD 2017 classification ([facility]) - CBC WITH WBC DIFFERENTIAL AND ANEMIA REFLEX WORKUP; Future - COMPREHENSIVE METABOLIC PANEL; Future - HOME PHLEBOTOMY REFERRAL OP Follow up plan: Will follow up in 4-6 weeks. Patient doing well at home. He continues to have diarrhea every 6 hours or so. He states it is soft in nature and malodorous. He hasn't given a sample yetto retest for C.dfif. With his history I will treat with oral vancomycin for 14 days. He has no plans of pursing a fecal transplant. A total of 25 minutes was spent face to face via video-based telemedicine. Subjective Patient location: HOME. I was not in a hospital or clinic location. After connecting through [employer], patient was verified with two unique identifiers. Patient (or authorized legal patient access representative) was then informed that this was a Telemedicine visit and being conducted confidentially over secure lines. Methods to assure confidentiality were taken. Patient acknowledged consent and understanding of privacy and security of the Telemedicine visit. The patient agreed to participate. Reason for Visit: Follow-Up Current Concerns: Jer Abreu Jr. is a 82 year old male seen today for a [facility] Telemedicine Provider Visit. Date of last known acute care visit: 12/23/22 with myself Reason for last known acute care visit: Patient suffers from chronic respiratory failure and is oxygen dependent at 2.5- 3.0 liters. His last hospitalization was in June for pseudomonal pneumonia. He has a history of C.diff and chronic diarrhea. He was on an extended course of vancomycin and was referred for a fecal transplant. He doesnot want to pursue that. He has been unable to provide a stool sample for retesting for C.diff Today's concerns are: Patient states he is doing pretty well at home. Breathing has been good. He did use the prednisone of the rescue kit. He feels his cough and sputum production are at baseline. He is doing his nebulizer treatments and inhalers. Appetite is good. He feels the diarrhea has improved somewhat. It is more soft now rather than watery and he isn't going as much, maybe 4 x a day. No abdominal pain/cramping. He feels he is holding his weight steady. ROS: See HPI Objective Physical Exam: BP 120/58 (BP Site: Left Arm, BP Position: Sitting, BP Cuff Size: Regular) | Pulse 71 | Temp 36.7 C (98 F) (Infrared ) | SpO2 96% Previous Wts: Wt Readings from Last 5 Encounters: 10/28/22 51.7 kg (114 lb) 02/10/22 46.7 kg (103 lb) 01/28/22 46.3 kg (102 lb) 12/16/21 46.7 kg (103 lb) 10/29/21 48.6 kg (107 lb 3.2 oz) Previous BPs: BP Readings from Last 5 Encounters: 02/02/23 120/58 12/23/22 114/54 10/28/22 110/62 09/10/22 110/80 08/20/22 102/52 Physical Exam Constitutional: General: He is not in acute distress. HENT: Head: Normocephalic and atraumatic. Mouth/Throat: Pharynx: Oropharynx is clear. Eyes: Extraocular Movements: Extraocular movements intact. Conjunctiva/sclera: Conjunctivae normal. Cardiovascular: Rate and Rhythm: Normal rate and regular rhythm. Pulmonary: Effort: Pulmonary effort is normal. No respiratory distress. Breath sounds: Normal breath sounds. Comments: Decreased at the bases bilaterally Neurological: General: No focal deficit present. Mental Status: He is alert and oriented to person, place, and time. Diagnostic Data Review: Hematology Lab Results Component Value Date/Time WBC AUTO - [facility] 7.37 07/08/2022 05:30 AM WBC AUTO - [facility] 10.88 (H) 02/06/2022 04:07 PM WBC AUTO - [facility] 7.38 10/10/2021 05:35 AM WBC AUTO - [facility] 7.31 10/01/2016 04:17 PM WBC AUTO - [facility] 6.54 02/17/2008 03:12 PM WBC AUTO - [facility] 6.40 08/30/2006 11:56 AM Lab Results Component Value Date/Time HGB - [facility] 8.7 (L) 07/08/2022 05:30 AM HGB - [facility] 12.1 (L) 02/06/2022 04:07 PM HGB - [facility] 9.4 (L) 10/10/2021 05:35 AM HGB - [facility] 14.5 10/01/2016 04:17 PM HGB - [facility] 14.1 02/17/2008 03:12 PM HGB - [facility] 15.8 08/30/2006 11:56 AM Lab Results Component Value Date/Time HCT - [facility] 28.4 (L) 07/08/2022 05:30 AM HCT - [facility] 39.3 (L) 02/06/2022 04:07 PM HCT - [facility] 28.6 (L) 10/10/2021 05:35 AM HCT - [facility] 42.3 10/01/2016 04:17 PM HCT - [facility] 40.3 02/17/2008 03:12 PM HCT - [facility] 45.6 08/30/2006 11:56 AM Lab Results Component Value Date/Time PLATELET AUTO - [facility] 452 (H) 07/08/2022 05:30 AM PLATELET AUTO - [facility] 281 02/06/2022 04:07 PM PLATELET AUTO - [facility] 269 10/10/2021 05:35 AM PLATELET AUTO - [facility] 252 10/01/2016 04:17 PM PLATELET AUTO - [facility] 164 02/17/2008 03:12 PM PLATELET AUTO - [facility] 165 08/30/2006 11:56 AM No results found for: IRON - [facility] No results found for: TRANSFERRIN SATURATION PERCENT - [facility] No results found for: TRANSFERRIN - [facility] Lab Results Component Value Date/Time VITAMIN B12 - [facility] 279 08/30/2006 11:56 AM VITAMIN B12 - [facility] NORMAL 08/30/2006 11:56 AM Chemistry/Renal Lab Results Component Value Date/Time SODIUM - [facility] 143 07/08/2022 05:30 AM SODIUM - [facility] 142 02/06/2022 04:07 PM SODIUM - [facility] 138 06/18/2017 09:59 AM SODIUM - [facility] 133 (L) 10/01/2016 04:17 PM Lab Results Component Value Date/Time POTASSIUM - [facility] 3.9 07/08/2022 05:30 AM POTASSIUM - [facility] 4.2 02/06/2022 04:07 PM POTASSIUM - [facility] 3.8 06/18/2017 09:59 AM POTASSIUM - [facility] 4.5 10/01/2016 04:17 PM No results found for: PHOSPHORUS - [facility] Lab Results Component Value Date/Time MAGNESIUM - [facility] 1.9 08/31/2021 05:27 AM MAGNESIUM - [facility] 1.8 07/15/2005 05:06 PM Lab Results Component Value Date/Time BUN - [facility] 24 (H) 07/08/2022 05:30 AM BUN - [facility] 19 02/06/2022 04:07 PM BUN - [facility] 10 10/10/2021 05:35 AM BUN - [facility] 11 06/18/2017 09:59 AM BUN - [facility] 6 10/01/2016 04:17 PM BUN - [facility] 16 02/17/2008 03:12 PM Lab Results Component Value Date/Time CREATININE - [facility] 1.0 07/08/2022 05:30 AM CREATININE - [facility] 0.9 02/06/2022 04:07 PM CREATININE - [facility] 0.8 10/10/2021 05:35 AM CREATININE - [facility] 1.1 06/18/2017 09:59 AM CREATININE - [facility] 0.8 10/01/2016 04:17 PM CREATININE - [facility] 0.8 02/17/2008 03:12 PM Lab Results Component Value Date/Time ESTIMATED GLOMERULAR FILTRATION RATE - [facility] 80 07/08/2022 05:30 AM ESTIMATED GLOMERULAR FILTRATION RATE - [facility] 82 02/06/2022 04:07 PM ESTIMATED GLOMERULAR FILTRATION RATE - [facility] >90 10/10/2021 05:35 AM ESTIMATED GLOMERULAR FILTRATION RATE - [facility] >60.0 06/18/2017 09:59 AM ESTIMATED GLOMERULAR FILTRATION RATE - [facility] >60.0 10/01/2016 04:17 PM ESTIMATED GLOMERULAR FILTRATION RATE - [facility] >60.0 02/17/2008 03:12 PM ESTIMATED GLOMERULAR FILTRATION RATE - [facility] >60.0 08/30/2006 11:56 AM ESTIMATED GLOMERULAR FILTRATION RATE - [facility] >60.0 07/15/2005 05:06 PM No results found for: PTH - [facility] Liver Lab Results Component Value Date/Time AST - [facility] 15 02/06/2022 04:07 PM AST - [facility] 22 09/18/2021 03:57 PM AST - [facility] 36 02/17/2008 03:12 PM AST - [facility] 30 08/30/2006 11:56 AM Lab Results Component Value Date/Time ALT - [facility] 15 02/06/2022 04:07 PM ALT - [facility] 14 09/18/2021 03:57 PM ALT - [facility] 23 02/17/2008 03:12 PM ALT - [facility] 18 08/30/2006 11:56 AM Lab Results Component Value Date/Time ALKALINE PHOSPHATASE - [facility] 159 (H) 02/06/2022 04:07 PM ALKALINE PHOSPHATASE - [facility] 94 09/18/2021 03:57 PM ALKALINE PHOSPHATASE - [facility] 107 02/17/2008 03:12 PM ALKALINE PHOSPHATASE - [facility] 108 08/30/2006 11:56 AM Lab Results Component Value Date/Time BILIRUBIN, TOTAL - [facility] 0.3 02/06/2022 04:07 PM BILIRUBIN, TOTAL - [facility] 0.6 02/17/2008 03:12 PM Cardiac No results found for: PRO BNP Lab Results Component Value Date/Time LEFT VENTRICULAR EJECTION FRACTION 65 01/20/2021 04:01 PM Lab Results Component Value Date/Time HDL CHOLESTEROL - [facility] 46 02/17/2008 03:12 PM No results found for: NON-HDL CHOLESTEROL - [facility] Endocrine Lab Results Component Value Date/Time HEMOGLOBIN A1C - [facility] 5.7 08/30/2006 11:56 AM HEMOGLOBIN A1C - [facility] 5.6 07/15/2005 05:06 PM No results found for: ESTIMATED AVERAGE GLUCOSE - [facility] Lab Results Component Value Date/Time TSH - [facility] 0.77 12/26/2020 04:03 PM TSH - [facility] 1.06 08/30/2006 11:56 AM TSH - [facility] 0.97 07/15/2005 05:06 PM No results found for: T4 Medication Review: Current Outpatient Medications Medication Sig Dispense Refill acetaminophen (TYLENOL) 500 MG Tablet Take 1 Tablet by mouth every 4 hours as needed for Pain. hydrocortisone acetate (ANUSOL-HC) 25 MG suppository Administer 25 mg into the rectum 2 times a dayas needed for Hemorrhoids. Multiple Vitamins-Minerals (MULTIVITAMIN ADULTS) TABS Take by mouth daily. oxygen IN GAS 2.5 lpm at rest 3 LPM continuous oxygen with exertion DME: [facility] Indications: Inc to 4LPM with ambulation/exertion 1 Each 0 Saccharomyces boulardii 250 MG Oral Capsule (Florastor) Take 1 Capsule by mouth in the morning. Florastor . Famotidine 20 MG Oral Tablet (Pepcid) Take by mouth 1 Tablet as needed before bedtime for Heartburn. 30 Tablet 11 Folic Acid 1 MG Oral Tablet Take 1 Tablet (1 mg) by mouth in the morning. 90 Tablet 3 Roflumilast 500 MCG Oral Tablet (Daliresp) Take 1 Tablet (500 mcg) by mouth in the morning. 180 Tablet 4 Omeprazole 40 MG Oral Capsule Delayed Release (PriLOSEC) TAKE 1 CAPSULE BY MOUTH DAILY. 1 HOUR BEFORE THE FIRST MEAL OF THE DAY 90 Capsule 1 Vitamin B-12 100 MCG Oral Tablet (vitamin B-12) TAKE 1 TABLET BY MOUTH DAILY 90 Tablet 3 Thiamine HCl 100 MG Oral Tablet (vitamin B-1) TAKE 1 TABLET BY MOUTH EVERY DAY 90 Tablet 3 predniSONE 20 MG Oral Tablet (Deltasone) (Patient not taking: Reported on 08/20/2022) Lidocaine 5 % External Patch (Lidoderm) AT BEDTIME Levalbuterol HCl 1.25 MG/3ML Inhalation Nebulization Solution (Xopenex) 3 mL. guaiFENesin 200 MG Oral Tablet TAKE 1 TABLET BY MOUTH EVERY 6 HOURS NEEDED FOR CONGESTION FOR 4 DAYS (Patient not taking: Reported on 08/20/2022) Ventolin HFA 108 (90 Base) MCG/ACT Inhalation Aerosol Solution INHALE BY MOUTH 2 PUFFS EVERY 4 HOURS NEEDED FOR WHEEZING. BRAND NECESSARY 54 g 3 Triamcinolone Acetonide 55 MCG/ACT Nasal Aerosol (Nasacort Allergy 24HR) Administer 2 Sprays into each nostril in the morning. 1 Each 1 Potassium Chloride ER 20 MEQ Oral Tablet Extended Release TAKE 1 TABLET BY MOUTH EVERY DAY IN THE MORNING 90 Tablet 3 Azithromycin 250 MG Oral Tablet (Zithromax Z-Kota) Take two tablets by mouth on first day, then 1 tablet daily until gone 6 Tablet 0 Vancomycin HCl 125 MG Oral Capsule (Vancocin) 1 CAP DAILY UNTIL FECAL TRANSPLANT. 90 Capsule 1 Trelegy Ellipta 100-62.5-25 MCG/ACT Aerosol Powder Breath Activated (Ezlhaewyokm-Ncgmdytxpqqw-Dvycqnnlvk) INHALE 1 PUFF BY MOUTH IN THE MORNING 60 Each 5 Ipratropium [place] 0.02 % Inhalation Solution (Atrovent) USE 1 VIAL IN NEBULIZER 3 TIMES DAILY FORSEVERE CHRONIC OBSTRUCTIVE PULMONARY DISEASE 250 mL 4 No current facility-administered medications for this visit. Mobility Evaluation: MACH10 Assessment: Assistive Devices Used in the Home: Walker (standard or rollator) Manual Wheelchair Recent Falls: Falls in the last 6 months: No SDoH: DME (Durable Medical Equipment) needs Materials Analyst Services / Assistance with ADLs and Self-Care Routine Transportation Urgent Transportation Social Isolation Taylor Ruiz PA-C 1:08 PM *Communication sent to PCP (via [facility] if [facility]), Population Health Care Team members, relevant Specialty Care Physicians* * Kristi Viveros - 02/02/2023 1:00 PM EDT Community Health Scientific Advisor Visit Date: 02/02/2023 Time: 1:09 PM Name: Jer Abreu Jr. : 1940 Referral Source: Provider Source of Information: Patient Spoken language: Serbian Patient can read in Serbian: Yes. Diesel Fitter Mechanic needed: No. COVID-19 screening completed: Yes Vitals: Vital signs completed: Yes, vital signs within normal range. BP 120/58 (BP Site: Left Arm, BP Position: Sitting, BP Cuff Size: Regular) | Pulse 71 | Temp 36.7 C (98 F) (Infrared ) | SpO2 96% Condition Changes: Changes in health or social status since last visit: patient reported no new concerns or issues right now The patient has new concerns since last visit: No Progress towards goals since last visit: See above Medications: Medication review completed? No, Does the patient have barriers to medication adherence? No. Patient reports difficulty paying for medications or might in the future: No. Telehealth: This is a telehealth visit: Yes. Type of telehealth visit: Return/Routine Visit conducted with: Physician/AP Symptoms Surveys and Evaluations: MAHC10 completed this visit: Yes. Score is 4 or more? Yes, notified Provider/Product Safety Technical Assistant Last flowsheet values for MAHC10: Age 65+: 1 (02/02/2023 1:00 PM) Diagnosis (3 or more co-existing): 1 (02/02/2023 1:00 PM) Prior history of falls within 3 months: 1 (02/02/2023 1:00 PM) Incontinence: 0 (02/02/2023 1:00 PM) Visual impairment: 0 (02/02/2023 1:00 PM) Impaired functional mobility: 1 (02/02/2023 1:00 PM) Environmental hazards: 0 (02/02/2023 1:00 PM) Poly Pharmacy (4 or more prescriptions - any type): 1 (02/02/2023 1:00 PM) Pain affecting level of function: 0 (02/02/2023 1:00 PM) Cognitive impairment: 0 (02/02/2023 1:00 PM) Score - a score of 4 or more is considered at risk for fallin (02/02/2023 1:00 PM) COPD Checklist COPD CATHY (Community Health Scientific Advisor) Checklist The patient uses oxygen: Yes Tanks are stored: appropriately in living room Compressor located away from anything flammable: Yes Oxygen tubing: - Clean and in good repair: Yes - Reached out to Durable Medical Equipment supplier for replacement tubing: No, - Referred to Product Safety Technical Assistant for additional in-home respiratory assessment: No - Other: Describe how the patient manages going out with oxygen: patient would like to get a portable concentrator for when going out, the small tanks are getting heavy - Referred to Product Safety Technical Assistant for portable oxygen order: Yes - Coordinated portable oxygen tanks with Durable Medical Equipment supplier: No The patient uses a nebulizer: Yes Describe how the patient uses their nebulizer: Demonstrated using the nebulizer and appeared to understand. Describe how the patient cleans the nebulizer (including the filter): Patient demonstrated cleaningand appeared to understand. The patient uses an inhaler: Yes Describe how the patient uses the inhaler: Patient demonstrated using the inhaler and appeared to understand. Describe how the patient cleans the inhaler: Patient demonstrated cleaning and appeared to understand. Frequency of inhaler use: as prescribed COPD Assessment Test (CAT) completed this visit: Yes Last flowsheet values for COPD Assessment Test (CAT): [id number])@ Social Determinants of Health: Safety: Patient reports feeling unsafe in their home: No. Housing: Patient reports they are at risk of becoming homeless: No. Home/Living situation: Patient lives alone: No, lives with Bathroom is located trailer same floor Bedroom is located same level Patient has to go up and down steps: No. Patient receives help from family/friends/neighbors/community agencies etc.: Yes. Type of help the patient receives: Patient perceives the help they receive as adequate: Yes. DME: DME used: Walker, Cane, Wheelchair, O2, Hospital bed, and Bedside commode Patient has concerns related to DME: Yes. Specify plan/referrals/care team members notified: Financial: Patient reports experiencing a financial hardship: No. Employment: Patient is unemployed or without regular income: No. Utilities: Patient reports difficulty paying heating, water, or electric bill: No. Transportation: Patient drives: No. Does anyone drive patient to appointments and shopping? Yes. Patient receives community or public transportation assistance: No. Patient reports trouble getting a ride to medical visits or work: Never True. Clothing: Patient reports being unable to get clothing when it was really needed: No. Food insecurity: Patient has concerns surrounding meals/food: No. Within the past 12 months patient worried food would run out before having money to buy more: Never True. Within the past 12 months the food patient bought did not last and did not have money to get more: Never True Food is needed for this week: No. Caregiver/Childcare: Patient feels overwhelmed with taking care of a child, family member or friend: No. If caregiver is present, patient reports adequate support: Yes. Connections: How often do you feel lonely or isolated from those around you? Never. Plan: Reinforced care plan established by care team Reinforced patient's three red flags by the care team No red flags were identified at this time Follow Up: Patient encouraged to call the intake phone number for all urgent but not emergent issues. Scheduled to follow up with patient as per scheduled Kristi Viveros [facility] 02/02/2023 1:09 PM documented in this encounter Plan of Treatment Upcoming Encounters Date Type Specialty Care Team Description 03/09/2023 Telemedicine [facility] Taylor Schwartz PA-C [address] [place] [address] Kristi Viveros Formerly [facility], [facility]–1983 Health Scientific Advisor [address] [place] [address] Scheduled Referrals Name Type Priority Associated Diagnoses Orde r Schedule HOME PHLEBOTOMY REFERRAL OP Referral Within 30 days (routine) Chronic respiratory failure with hypoxia, on home O2 therapy (HCC) 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, group D, by GOLD 2017 classification (HCC) Ordered: 02/02/2023 Health Maintenance Due Date Last Done Comments Alpha-1 Antitrypsin 1960 *ADVANCE DIRECTIVE NOT ON FILE 09/25/2020 Depression Screening, Annual for Pts 12 and Over 11/12/2020 11/13/2019 COVID-19 Vaccine (3 - Moderna series) 03/21/2021 01/24/2021, 10/07/2020 Influenza Vaccine (FLU shot) (#1) 2023 02/25/2021, 04/12/2019, 04/12/2019, Additional history exists O2 ASSESSMENT COMPLETED IN PAST YEAR FOR COPD 02/03/2024 02/02/2023 DTaP,Tdap,and Td Vaccines (2 - Td or Tdap) 10/21/2027 10/20/2017 LUNG CANCER SCREENING - USE SMARTSET [id number] Completed 06/23/2017 Pneumococcal Vaccine: 65+ Years Completed [...] Not on filedocumented as of this encounter Results * (ABNORMAL) COMPREHENSIVE METABOLIC PANEL (02/04/2023 8:36 AM EDT) BUN 14 6 - 20 mg/dL 02/04/2023 12:15 PM EDT [facility] Creatinine 1.0 0.6 - 1.2 mg/dL 02/04/2023 12:15 PM EDT [facility] Estimated Glomerular Filtration Rate 73 >=60 mL/min 02/04/2023 12:15 PM EDT [facility] Comment:eGFR is calculated b ased on the CKD-EPI 2020 equation Sodium 141 135 - 146 mmol/L 02/04/2023 12:15 PM EDT [facility] Potassium 4.4 3.5 - 5.1 mmol/L 02/04/2023 12:15 PM EDT [facility] Chloride 105 98 - 107 mmol/L 02/04/2023 12:15 PM EDT [facility] CO2 24 22 - 32 mmol/L 02/04/2023 12:15 PM EDT [facility] Anion Gap 12 7 - 15 mmol/L 02/04/2023 12:15 PM EDT [facility] Glucose 89 70 - 120 mg/dL 02/04/2023 12:15 PM EDT [facility] Albumin 3.8 3.8 - 5.0 g/dL 02/04/2023 12:15 PM EDT [facility] AST 22 10 - 50 U/L 02/04/2023 12:15 PM EDT [facility] Alkaline Phosphatase 161(H) 35 - 130 U/L 02/04/2023 12:15 PM EDT [facility] Bilirubin, Total 0.2 <=1.2 mg/dL 02/04/2023 12:15 PM EDT [facility] Calcium 9.4 8.4 - 10.2 mg/dL 02/04/2023 12:15 PM EDT [facility] Protein 6.2 6.0 - 8.3 g/dL 02/04/2023 12:15 PM EDT [facility] ALT 13 10 - 50 U/L 02/04/2023 12:15 PM EDT [facility] Blood Venous blood specimen / Unknown Venipuncture / Unknown 02/04/2023 8:36 AM EDT 02/04/2023 11:16 AM EDT Taylor Ruiz PA-C LAB BLO OD ORDERABLES [facility] [address] [place] [address] documented in this encounter Visit Diagnoses Diagnosis Chronic respiratory failure with hypoxia, on home O2 therapy (HCC)- Primary 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
--- OUTSIDE RECORDS SUMMARY | 2023-04-08 22:58 | External Medical Summary | Summary of Care ---
Author Name Unknown Organization [facility] Address [address] [place] [address] Phone [phone] Care Team Providers Care Private Equity Analyst Name Role Phone Kavya Dillard Primary Care Provider Reason for Visit * Reason Comments eRx-Medication Refill Encounter Details Date Type Department Care Team Description 01/26/2023 Refill Family Practice [facility] [address] [facility] [address] Kavya Dillard CRNP [address] [place] [address] Stage 3 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 ([facility]) Allergies No known active allergiesdocumented as of this encounter (statuses as of 01/27/2023) Medications Medication Sig Dispensed Refills Start Date [...] LPM continuous oxygen with exertion DME: [facility] Indications: Inc to 4LPM with ambulation/exert ion 1 Each 0 04/01/2021 Active Saccharomyces boulardii 250 MG Oral Capsule (Florastor) Take 1 Capsule by mouth in the morning. Florastor . 0 Active Famotidine 20 MG Oral Tablet (Pepcid) Take by mouth 1 Tablet as needed before bedtime for Heartburn. 30 Tablet 11 02/24/2022 Active Folic Acid 1 MG Oral TabletIndications:Chr onic respiratory failure with hypoxia, on home O2 therapy (HCC) Take 1 Tablet (1 mg) by mouth [...] EVERY DAY 90 Tablet 3 06/30/2022 Active predniSONE 20 MG Oral Tablet (Deltasone) 0 07/07/2022 Active Lidocaine 5 % External Patch (Lidoderm) AT BEDTIME 0 07/07/2022 Active Levalbuterol HCl 1.25 MG/3ML Inhalation Nebulization Solution (Xopenex) 3 mL. 0 09/27/2021 Active guaiFENesin 200 MG Oral Tablet TAKE 1 TABLET BY MOUTH EVERY 6 HOURS NEEDED FOR CONGESTION FOR 4 DAYS 0 06/26/2022 Active Ventolin HFA 108 (90 Base) MCG/ACT Inhalation Aerosol SolutionIndications:C OPD, group D, by GOLD 2017 classification ([facility]) INHALE BY MOUTH 2 PUFFS [...] Ellipta 100-62.5-25 MCG/ACT Aerosol Powder Breath Activated (Fluticasone-Umeclidi nium-Vilanterol) INHALE 1 PUFF BY MOUTH IN THE MORNING 60 Each 5 01/22/2023 Active documented as of this encounter (statuses as of 01/27/2023) Active Problems Problem Noted Date Severe protein-calorie [...] as of this encounter (statuses as of 01/27/2023) Resolved Problems Problem Noted Date Resolved Date [...] as of this encounter (statuses as of 01/27/2023) Immunizations Name Administration Dates Next Due Pneumococcal [...] encounter Miscellaneous Notes * Telephone Encounter - Vernon Wood, [facility] - 01/27/2023 10:50 AM EDTRefused Prescriptions: Disp Refills Ipratropium [place] 0.02 % Inhalation Solu*250 mL 4 Sig: USE 1 VIAL IN NEBULIZER 3 TIMES DAILY FOR SEVERE CHRONIC OBSTRUCTIVE PULMONARY DISEASERefused By: VERNON WOOD for Refusal: Course of treatment complete documented in this encounter Plan of Treatment Upcoming Encounters Date Type Specialty Care Team Description 02/02/2023 Telemedicine [facility] Taylor Schwartz PA-C [address] [place] [address] Radha Patten, [facility] Plate Take Out Worker [address] [place] [address] [place] [address] Health Maintenance Due Date Last Done Comments Alpha-1 Antitrypsin 1960 *ADVANCE DIRECTIVE NOT ON FILE 09/25/2020 Depression Screening, Annual for Pts 12 and Over 11/12/2020 11/13/2019 COVID-19 Vaccine (3 - Moderna series) 03/21/2021 01/24/2021, 10/07/2020 Influenza Vaccine (FLU shot) (#1) 2023 02/25/2021, 04/12/2019, 04/12/2019, Additional history exists O2 ASSESSMENT COMPLETED IN PAST YEAR FOR COPD 12/24/2023 12/23/2022 DTaP,Tdap,and Td Vaccines (2 - Td or Tdap) 10/21/2027 10/20/2017 LUNG CANCER SCREENING - USE SMARTSET [id number] Completed 06/23/2017 Pneumococcal Vaccine: 65+ Years Completed [...] as of this encounter Visit Diagnoses Diagnosis Stage 3 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
--- OUTSIDE RECORDS SUMMARY | 2023-04-08 22:58 | External Medical Summary | Summary of Care ---
Author Name Unknown Organization [facility] Address [address] [place] [address] Phone [phone] Care Team Providers Care Thermal Cutter Helper Name Role Phone Kavya Dillard GARRETT Primary Care Provider Reason for Visit * Reason Comments [facility]: Telehealth Encounter Details Date Type Department Care Team Description 03/09/2023 Telemedicine [facility], [place] [address] [place], [place] [id number] Taylor Schwartz PA-C [address] [place] [address] Kristi Viveros, [facility] Cloth Piecer [address] [place], [place] [id number] Chronic respiratory failure with hypoxia, on home O2 therapy *; COPD exacerbation (HCC); Fibrosis of lung (HCC) Allergies No known active allergiesdocumented as of this encounter (statuses as of 03/12/2023) Medications Medication Sig Dispensed Refills Start Date [...] 3 LPM continuous oxygen with exertion DME: [facility] Indications: Inc to 4LPM with ambulation/exerti [...] by GOLD 2017 classification ([facility]) INHALE BY MOUTH 2 PUFFS EVERY [...] MORNING 60 Each 5 01/22/2023 Active Ipratropium [place] 0.02 % Inhalation Solution (Atrovent)Indication s:Stage 3 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 ([facility]) USE 1 VIAL IN NEBULIZER 3 TIMES DAILY FOR SEVERE CHRONIC OBSTRUCTIVE PULMONARY DISEASE 250 mL 4 02/01/2023 Active Levalbuterol HCl 1.25 MG/3ML Inhalation Nebulization Solution (Xopenex)Indications :Chronic obstructive pulmonary disease, unspecified ([facility]) INHALE 1 AMPULE VIA NEBULIZER 3 TIMES A DAY. 810 mL 1 02/04/2023 Active Ferrous Sulfate 325 (65 Fe) MG Oral Tablet (Feosol) Take 1 Tablet by mouth in the morning and 1 Tablet before bedtime. 60 Tablet 6 03/09/2023 Active predniSONE 20 MG Oral Tablet (Deltasone) Take 1 Tablet by mouth in the morning for 5 days. 5 Tablet 0 03/04/2023 3 documented as of this encounter (statuses as of 03/12/2023) Active Problems Problem Noted Date Severe protein-calorie [...] as of this encounter (statuses as of 03/12/2023) Resolved Problems Problem Noted Date Resolved Date [...] as of this encounter (statuses as of 03/12/2023) Immunizations Name Administration Dates Next Due Pneumococcal [...] Sign Reading Time Taken Comments Blood Pressure 100/80 03/09/2023 4:21 PM EDT Pulse 82 03/09/2023 4:21 PM EDT Temperature 37 C (98.6 F) 03/09/2023 4:21 PM EDT Respiratory Rate 20 03/09/2023 4:21 PM EDT Oxygen Saturation 99% 03/09/2023 4:21 PM EDT Inhaled Oxygen Concentration - - Weight - - Height - - Body Mass Index - - documented in this encounter Progress Notes * Kristi Viveros - 03/09/2023 4:20 PM EDT [facility] Cloth Piecer Telephone Visit Date: 03/09/2023 Time: 4:21 PM Name: Jer Abreu Jr. : 1940 Source of Information: Patient COVID-19 screening completed: Yes Vitals: Vital signs completed: Yes, vital signs within normal range. BP 100/80 (BP Site: Left Arm, BP Position: Sitting, BP Cuff Size: Regular) | Pulse 82 | Temp 37 C(98.6 F) (Infrared ) | Resp 20 | SpO2 99% Condition Changes: Changes in health or social status since last visit: increased chest pain, had the flu, mucous coming up is green The patient has new concerns since last visit: Yes, Progress towards goals since last visit: See above Medications: Medication review completed? No, Does the patient have barriers to medication adherence? No. Symptoms Surveys and Evaluations: Last flowsheet values for [facility]: Age 65+: 1 (02/02/2023 1:00 PM) Diagnosis [...] PM) COPD Checklist COPD CATHY ([facility] Cloth Piecer) Checklist The patient uses oxygen: Yes Tanks are stored: in livingroom Compressor located away from anything flammable: yes Oxygen tubing: - Clean and in good repair: Yes - Reached out to Durable Medical Equipment supplier for replacement tubing: No, - Referred to Staff Radiographer for additional in-home respiratory assessment: No, - Other: Describe how the patient manages going out with oxygen: uses tanks and its challenging - Referred to Staff Radiographer for portable oxygen order: No - Coordinated portable oxygen tanks with Durable [...] flowsheet values for COPD Assessment Test (CAT): [id number])@ Plan: Reinforced care plan established by care team Reinforced patient's three red flags by the care team No red flags were identified at this time Follow Up: Patient encouraged to call the intake phone number for all urgent but not emergent issues. Scheduled to follow up with patient as pre scheduled. Kristi Viveros, [facility] Cloth Piecer 03/09/2023 4:21 PM * Taylor Ruiz PA-C - 03/09/2023 3:11 PM EDT [facility] Provider Telemedicine Visit Date: 03/09/2023 Time: 3:11 PM Assessment/Plan: 1. Chronic respiratory failure with hypoxia, on home O2 therapy - XR CHEST 2 VIEWS 2. COPD exacerbation (HCC) - XR CHEST 2 VIEWS 3. Fibrosis of lung (HCC) Follow up plan: Patient with complaints of increased SOB for ? One month. He states he is coughing green sputum. He has a Z-pack at home to take and has prednisone at the pharmacy. Reviewed recent labs which show iron deficiency anemia. Sent a Rx for iron to begin taking and will continue to monitor. A total of 30 minutes was spent face to face via video-based telemedicine. Subjective Patient location: HOME. I was not in a hospital or clinic location. After connecting through televideo, patient was verified with two unique identifiers. Patient (or authorized legal fuels sales representative) was then informed that this was a Telemedicine visit and being conducted confidentially over secure lines. Methods to assure confidentiality were taken. Patient acknowledged consent and understanding of privacy and security of the Telemedicine visit. The patient agreed to participate. Reason for Visit: Follow-Up Current Concerns: Jer Abreu Jr. is a 82 year old male seen today for a [facility] Telemedicine Provider Visit. Date of last known acute care visit: 02/02/23 with myself Reason for last known acute [...] C.diff Today's concerns are: Patient states he was sick with the flu a few weeks ago. Since then he has had increased SOB/XIAO. No reported edema. He has been coughing up green for ? one week. He has some tightness in his chest but feels its more gas/acid related. He didn't test for COVID. He states he took prednisone with somerelief of symptoms last week. He is taking the vancomycin for his diarrhea. Appetite is good. He states the diarrhea was improved but then was worse today. No changes in urinary habits. ROS: See HPI Objective Physical Exam: BP 100/80 (BP Site: Left Arm, BP Position: Sitting, BP Cuff Size: Regular) | Pulse 82 | Temp 37 C(98.6 F) (Infrared ) | Resp 20 | SpO2 99% Previous Wts: Wt Readings from Last 5 [...] acute distress. HENT: Head: Normocephalic and atraumatic. Nose: Nose normal. Mouth/Throat: Pharynx: Oropharynx is clear. Eyes: Extraocular Movements: Extraocular movements intact. Conjunctiva/sclera: Conjunctivae normal. Cardiovascular: Rate and Rhythm: Normal rate and regular rhythm. Pulmonary: Effort: Pulmonary effort is normal. No respiratory distress. Breath sounds: Normal breath sounds. Neurological: General: No focal deficit present. Mental Status: He is alert and oriented to person, place, and time. Diagnostic Data Review: Hematology Lab Results Component Value Date/Time WBC AUTO - [facility] 6.81 02/04/2023 08:36 AM WBC AUTO - [facility] 7.37 07/08/2022 05:30 AM WBC AUTO - [facility] 10.88 (H) 02/06/2022 04:07 PM WBC AUTO - [facility] 7.31 10/01/2016 04:17 PM WBC AUTO - [facility] 6.54 02/17/2008 03:12 PM WBC AUTO - [facility] 6.40 08/30/2006 11:56 AM Lab Results Component Value Date/Time HGB - [facility] 10.5 (L) 02/04/2023 08:36 AM HGB - [facility] 8.7 (L) 07/08/2022 05:30 AM HGB - [facility] 12.1 (L) 02/06/2022 04:07 PM HGB - [facility] 14.5 10/01/2016 04:17 PM HGB - [facility] 14.1 02/17/2008 03:12 PM HGB - [facility] 15.8 08/30/2006 11:56 AM Lab Results Component Value Date/Time HCT - [facility] 34.7 (L) 02/04/2023 08:36 AM HCT - [facility] 28.4 (L) 07/08/2022 05:30 AM HCT - [facility] 39.3 (L) 02/06/2022 04:07 PM HCT - [facility] 42.3 10/01/2016 04:17 PM HCT - [facility] 40.3 02/17/2008 03:12 PM HCT - [facility] 45.6 08/30/2006 11:56 AM Lab Results Component Value Date/Time PLATELET AUTO - [facility] 276 02/04/2023 08:36 AM PLATELET AUTO - [facility] 452 (H) 07/08/2022 05:30 AM PLATELET AUTO - [facility] 281 02/06/2022 04:07 PM PLATELET AUTO - [facility] 252 10/01/2016 04:17 PM PLATELET AUTO - [facility] 164 02/17/2008 03:12 PM PLATELET AUTO - [facility] 165 08/30/2006 11:56 AM Lab Results Component Value Date/Time IRON - [facility] 18 (L) 02/04/2023 08:36 AM Lab Results Component Value Date/Time TRANSFERRIN SATURATION PERCENT - [facility] 4 (L) 02/04/2023 08:36 AM No results found for: TRANSFERRIN - [facility] Lab Results Component Value Date/Time VITAMIN B12 - [facility] 279 08/30/2006 11:56 AM VITAMIN B12 - [facility] NORMAL 08/30/2006 11:56 AM Chemistry/Renal Lab Results Component Value Date/Time SODIUM - [facility] 141 02/04/2023 08:36 AM SODIUM - [facility] 143 07/08/2022 05:30 AM SODIUM - [facility] 138 06/18/2017 09:59 AM SODIUM - [facility] 133 (L) 10/01/2016 04:17 PM Lab Results Component Value Date/Time POTASSIUM - [facility] 4.4 02/04/2023 08:36 AM POTASSIUM - [facility] 3.9 07/08/2022 05:30 AM POTASSIUM - [facility] 3.8 06/18/2017 09:59 AM POTASSIUM - [facility] 4.5 10/01/2016 04:17 PM No results found for: PHOSPHORUS - [facility] Lab Results Component Value Date/Time MAGNESIUM - [facility] 1.9 08/31/2021 05:27 AM MAGNESIUM - [facility] 1.8 07/15/2005 05:06 PM Lab Results Component Value Date/Time BUN - [facility] 14 02/04/2023 08:36 AM BUN - [facility] 24 (H) 07/08/2022 05:30 AM BUN - [facility] 19 02/06/2022 04:07 PM BUN - [facility] 11 06/18/2017 09:59 AM BUN - [facility] 6 10/01/2016 04:17 PM BUN - [facility] 16 02/17/2008 03:12 PM Lab Results Component Value Date/Time CREATININE - [facility] 1.0 02/04/2023 08:36 AM CREATININE - [facility] 1.0 07/08/2022 05:30 AM CREATININE - [facility] 0.9 02/06/2022 04:07 PM CREATININE - [facility] 1.1 06/18/2017 09:59 AM CREATININE - [facility] 0.8 10/01/2016 04:17 PM CREATININE - [facility] 0.8 02/17/2008 03:12 PM Lab Results Component Value Date/Time ESTIMATED GLOMERULAR FILTRATION RATE - [facility] 73 02/04/2023 08:36 AM ESTIMATED GLOMERULAR FILTRATION RATE - [facility] 80 [...] Results Component Value Date/Time AST - [facility] 22 02/04/2023 08:36 AM AST - [facility] 15 02/06/2022 04:07 PM AST - [facility] 36 02/17/2008 03:12 PM AST - [facility] 30 08/30/2006 11:56 AM Lab Results Component Value Date/Time ALT - [facility] 13 02/04/2023 08:36 AM ALT - [facility] 15 02/06/2022 04:07 PM ALT - [facility] 23 02/17/2008 03:12 PM ALT - [facility] 18 08/30/2006 11:56 AM Lab Results Component Value Date/Time ALKALINE PHOSPHATASE - [facility] 161 (H) 02/04/2023 08:36 AM ALKALINE PHOSPHATASE - [facility] 159 (H) 02/06/2022 04:07 PM ALKALINE PHOSPHATASE - [facility] 107 02/17/2008 03:12 PM ALKALINE PHOSPHATASE - [facility] 108 08/30/2006 11:56 AM Lab Results Component Value Date/Time BILIRUBIN, TOTAL - [facility] 0.2 02/04/2023 08:36 AM BILIRUBIN, TOTAL - [facility] 0.6 02/17/2008 03:12 [...] 3 LPM continuous oxygen with exertion DME: [facility] Indications: Inc to 4LPM with ambulation/exertion [...] BY MOUTH EVERY DAY 90 Tablet 3 Lidocaine 5 % External Patch (Lidoderm) AT BEDTIME guaiFENesin 200 MG Oral Tablet TAKE 1 [...] Ellipta 100-62.5-25 MCG/ACT Aerosol Powder Breath Activated (Pujcmauyjxg-Fbiptfkrsvrc-Jbowqquugm) INHALE 1 PUFF BY MOUTH IN THE MORNING 60 Each 5 Ipratropium [place] 0.02 % Inhalation Solution (Atrovent) USE 1 VIAL IN NEBULIZER 3 TIMES DAILY FORSEVERE CHRONIC OBSTRUCTIVE PULMONARY DISEASE 250 mL 4 Levalbuterol HCl 1.25 MG/3ML Inhalation Nebulization Solution (Xopenex) INHALE 1 AMPULE VIA NEBULIZER 3 TIMES A DAY. 810 mL 1 predniSONE 20 MG Oral Tablet (Deltasone) Take 1 Tablet by mouth in the morning for 5 days. 5 Tablet0 No current facility-administered medications for this visit. Mobility Evaluation: MACH10 Assessment: Assistive Devices Used in the Home: Walker (standard or rollator) Recent Falls: Falls in the last 6 months: No SDoH: DME (Durable Medical Equipment) needs Mop Worker Services / Assistance with ADLs and Self-Care Routine Transportation Urgent Transportation Social Isolation Taylor Ruiz PA-C 3:11 PM *Communication sent to PCP (via autofax if non[facility]), Population Health Care Team members, relevant Specialty Care Physicians* documented in this encounter Plan of Treatment Upcoming Encounters Date Type Specialty Care Team Description 04/19/2023 Telemedicine [facility] Taylor Schwartz PA-C [address] [place] [address] Kristi Viveros, Community [facility] Cloth Piecer [address] [place] [address] Scheduled Orders Name Type Priority Associated Diagnoses Orde r Schedule XR CHEST 2 VIEWS Medical Imaging Routine Chronic respiratory failure with hypoxia, on home O2 therapy COPD exacerbation (HCC) Ordered: 03/09/2023 Health Maintenance Due Date Last Done Comments [...] 10/20/2017 LUNG CANCER SCREENING - USE SMARTSET [id number] Completed 06/23/2017 Pneumococcal Vaccine: 65+ Years Completed [...] with hypoxia, on home O2 therapy- Primary COPD exacerbation (HCC) Obstructive chronic bronchitis with exacerbation 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
--- OUTSIDE RECORDS SUMMARY | 2023-04-08 22:58 | External Medical Summary | Summary of Care ---
Author Name Unknown Organization [facility] Address [address] [place] [address] Phone [phone] Care Team Providers Care Cat Hooker Name Role Phone Kavya Dillard GARRETT Primary Care Provider Reason for Visit * Reason Onset Date Comments case management 02/01/2023 Encounter Details Date Type Department Care Team Description 02/01/2023 Hat Brim And Crown Laminating Operator Telephone Family Practice [facility] [address] [place], [place] [id number] Kayli Horton, management consultant Allergies No known active allergiesdocumented as of this encounter (statuses as of 02/01/2023) Medications Medication Sig Dispensed Refills Start Date [...] continuous oxygen with exertion DME: 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 ([facility]) USE 1 VIAL IN NEBULIZER 3 TIMES DAILY FOR SEVERE CHRONIC OBSTRUCTIVE PULMONARY DISEASE 250 mL 4 02/01/2023 Active documented as of this encounter (statuses as of 02/01/2023) Active Problems Problem Noted Date Severe protein-calorie [...] as of this encounter (statuses as of 02/01/2023) Resolved Problems Problem Noted Date Resolved Date [...] as of this encounter (statuses as of 02/01/2023) Immunizations Name Administration Dates Next Due Pneumococcal [...] Telephone Encounter - Kayli Horton RN - 02/01/2023 2:35 PM EDT CM Progress note S: Patient called in, he ran out of ipratropium nebulizer solution today, asking for a refill. He reports that he is doing well overall, continues to have some diarrhea. Appetite is good. No falls orinjuries. States "I am working on staying out of the hospital". Has home televisit with Taylor Arora tomorrow. Also reports that the tubing he last received was too short. O: phone call follow up A: alert, oriented, pleasant P: Call placed to [facility], spoke with Anastasiia, states she will send him longer tubing. Alsomessage to Taylor Ruiz, who will refill nebulizer vials, as Kavya Dillard is out of the office today. documented in this encounter Plan of Treatment Upcoming Encounters Date Type Specialty Care Team Description 02/02/2023 Telemedicine [facility] [address] [facility] [address] Radha Patten, Community Health National Account Manager [address] [place] [address] [place] [address] Health Maintenance Due Date [...] 10/20/2017 LUNG CANCER SCREENING - USE SMARTSET 22279 Completed 06/23/2017 Pneumococcal Vaccine: 65+ Years Completed [...] filedocumented as of this encounter Care Teams Cat Hooker Relationship Specialty Start Date End Date Kavya Dillard CRNP [address] [place] [address] PCP - General Nurse Practitioner 12/31/20 documented as of this encounter
--- OUTSIDE RECORDS SUMMARY | 2023-04-08 22:58 | External Medical Summary | Summary of Care ---
Author Name Unknown Organization [facility] Address [address] [place] [address] Phone [phone] Care Team Providers Care Logistics Engineering Manager Name Role Phone Kavya Dillardlle GARRETT Primary Care Provider Reason for Visit * Reason Onset Date Comments Information 03/09/2023 Encounter Details Date Type Department Care Team Description 03/09/2023 Telephone [facility] [place] [place] [address] [place], [place] [phone] Services, Scheduling [address] [place] [address] Information (/) Allergies No known active allergiesdocumented as of this encounter (statuses as of 03/09/2023) Medications Medication Sig Dispensed Refills Start Date [...] 3 LPM continuous oxygen with exertion DME: [facility] Indications: Inc to 4LPM with ambulation/exerti on [...] COPD, group D, by GOLD 2017 classification ([facility]) INHALE BY MOUTH 2 PUFFS [...] MORNING 60 Each 5 01/22/2023 Active Ipratropium [place] 0.02 % Inhalation Solution (Atrovent)Indication s:Stage 3 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 810 mL 1 02/04/2023 Active predniSONE 20 MG Oral Tablet (Deltasone) Take 1 Tablet by mouth in the morning for 5 days. 5 Tablet 0 03/04/2023 3 Active Ferrous Sulfate 325 (65 Fe) MG Oral Tablet (Feosol) Take 1 Tablet by mouth in the morning and 1 Tablet before bedtime. 60 Tablet 6 03/09/2023 Active documented as of this encounter (statuses as of 03/09/2023) Active Problems Problem Noted Date Severe protein-calorie [...] as of this encounter (statuses as of 03/09/2023) Resolved Problems Problem Noted Date Resolved Date [...] as of this encounter (statuses as of 03/09/2023) Immunizations Name Administration Dates Next Due PPD 04/22/2005 Pneumococcal Conjugate Vacc, 13 Valent (Prevnar) 10/20/2017 Pneumococcal Polysaccharide PPV23 (Pneumovax) 04/27/2017 SEASONAL INFLUENZA, PF, 6 M & Above, IM , (FLULAVAL or FLUZONE) 02/28/2018,03/12/2017 Seasonal Influenza, Split, I IV3, With Preserve, Inj 03/12/2009,04/24/2006,04/18/2005 Seasonal Influenza, Trivalen t, Adjuvanted, 65+ yrs 04/12/2019 TDAP (age 10 [...] * Telephone Encounter - JAH Guzman - 03/09/2023 4:12 PM EDT Call to and faxed cxr order, pt ins/demo to [facility] mobile imaging at [phone], claim [id number] documented in this encounter Plan of Treatment Upcoming Encounters Date Type Specialty Care Team Description 04/19/2023 Telemedicine [facility] Taylor Schwartz PA-C [address] [place] [address] Kristi Viveros, Community Health Project Drilling Engineer [address] [place] [address] Health Maintenance Due Date Last Done Comments [...] 10/20/2017 LUNG CANCER SCREENING - USE SMARTSET [id number] Completed 06/23/2017 Pneumococcal Vaccine: 65+ Years Completed [...] filedocumented as of this encounter Care Teams Logistics Engineering Manager Relationship Specialty Start Date End Date Kavya Dillard CRNP [address] [place] [address] PCP - General Nurse Practitioner 12/31/20 documented as of this encounter
--- OUTSIDE RECORDS SUMMARY | 2023-04-08 22:58 | External Medical Summary | Summary of Care ---
Author Name Unknown Organization [facility] Address [address] [place] [address] Phone [phone] Care Team Providers Care Oracle Soa Consultant Name Role Phone Kavya Dillard Primary Care Provider Reason for Visit * Reason Comments eRx-Medication Refill Encounter Details Date Type Department Care Team Description 02/01/2023 Refill [facility] Practice [facility] [address] [facility] [address] Kavya Dillard CRNP [address] [place] [address] Stage 3 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 ([facility]) Allergies No known active allergiesdocumented as [...] 3 LPM continuous oxygen with exertion DME: [facility] Indications: Inc to 4LPM with ambulation/exerti on [...] hypoxia, on home O2 therapy ([facility]) Take 1 Tablet (1 mg) by [...] by GOLD 2017 classification ([facility]) INHALE BY MOUTH 2 PUFFS EVERY [...] MORNING 60 Each 5 01/22/2023 Active Ipratropium [place] 0.02 % Inhalation Solution (Atrovent)Indication s:Stage 3 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 (HCC) USE 1 VIAL IN NEBULIZER 3 TIMES [...] on file documented as of this encounter Plan of Treatment Upcoming Encounters Date Type Specialty Care Team Description 02/02/2023 Telemedicine [facility] Taylor Schwartz PA-C [address] [place] [address] Radha Patten, Community Health Drain Technician [address] [place] [address] [place] [address] Health Maintenance Due Date Last Done Comments [...] 10/20/2017 LUNG CANCER SCREENING - USE SMARTSET 22425 Completed 06/23/2017 Pneumococcal Vaccine: 65+ Years Completed [...] (HCC) documented in this encounter Care Teams Oracle Soa Consultant Relationship Specialty Start Date End Date Kavya Dillard CRNP [address] [place] [address] PCP - General Nurse Practitioner 12/31/20 documented as of this encounter
--- OUTSIDE RECORDS SUMMARY | 2023-04-08 22:58 | External Medical Summary ---
Author Name Unknown Address Unknown Organization [id number]:[facility] [place] [place] [address] Laboratory Report Ordering Provider Test Date Status DHRUVIWONA AKANKSHA 02/04/2023 08:36:00 Final Observation Date Value Abnormality Reference (Units ) Status Retic, % (auto) 02/04/2023 08:36:00 1.42 0.80-1.90 (%) Final Reticulocytes, Absolute 02/04/2023 08:36:00 58.2 31.3-100.1 (K/uL) Final Reticulocyte fraction, immature 02/04/2023 08:36:00 22.7 Above high normal 2.5-20.6 (%) Final Reticulocyte HGB 02/04/2023 08:36:00 25.8 Below low normal 29.7-37.4 (pg) Final Performing Location [facility] [place] [address] [place] [address]
--- OUTSIDE RECORDS SUMMARY | 2023-04-08 22:58 | External Medical Summary | Summary of Care ---
Author Name Unknown Organization [facility] Address [address] [place] [address] Phone [phone] Care Team Providers Care Performance Improvement Specialist Name Role Phone Kavya Jacinto Primary Care Provider Reason for Visit * Reason Onset Date Comments Medication Refill 03/04/2023 Encounter Details Date Type Department Care Team Description 03/04/2023 Refill Family Practice [facility] [address] [place] [address] Kavya Jacinto CRNP [address] [place] [address] Allergies No known active allergiesdocumented as of this encounter (statuses as of 03/04/2023) Medications Medication Sig Dispensed Refills Start Date [...] 3 LPM continuous oxygen with exertion DME: 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 810 mL 1 02/04/2023 Active predniSONE 20 MG Oral Tablet (Deltasone) Take 1 Tablet by mouth in the morning for 5 days. 5 Tablet 0 03/04/2023 3 Active predniSONE 20 MG Oral Tablet (Deltasone) 0 07/07/2022 3 Discontinu ed(Refill) documented as of this encounter (statuses as of 03/04/2023) Active Problems Problem Noted Date Severe protein-calorie [...] as of this encounter (statuses as of 03/04/2023) Resolved Problems Problem Noted Date Resolved Date [...] as of this encounter (statuses as of 03/04/2023) Immunizations Name Administration Dates Next Due Pneumococcal [...] encounter Miscellaneous Notes * Telephone Encounter - GARRETT Root - 03/04/2023 11:05 AM EDT Signed Prescriptions: Disp Refills predniSONE 20 MG Oral Tablet (Deltasone) 5 Tabl*0 Sig: Take 1 Tablet by mouth in the morning for 5 days. Authorizing Provider: KAVYA JACINTO * Telephone Encounter - Silva Helms CPhT - 03/04/2023 8:08 AM EDT Please see call details Medication(s) is/are listed as "Historical". Pt confirmed the current dosage, directions, and qty that they are normally prescribed, as reflected in the pending order below. This is also indicated from encounter on 07/16/22. Confirmed patient has been seen within the last year.. Please review and approve if appropriate. Pending Prescriptions: Disp Refills predniSONE 20 MG Oral Tablet (Deltasone) 0 Sig: Take 1 Tablet by mouth in the morning. Last Visit: 07/16/2022 (in office), Visit date not found (telemedicine) Next Visit: Visit date not found If no future appointments scheduled, and last appointment is greater than a year ago, please schedule patient for a follow-up appointment Last date the medication was ordered: Historical Patient Phone Numbers Labs: Lab Results Component Value Date/Time CREAT 1.0 02/04/2023 08:36 AM CREAT 0.81 08/30/2021 12:00 AM CREAT 1.1 06/18/2017 09:59 AM POTASSIUM 4.4 02/04/2023 08:36 AM POTASSIUM 3.2 (A) 08/30/2021 12:00 AM POTASSIUM 3.8 06/18/2017 09:59 AM TSH 0.77 12/26/2020 04:03 PM TSH 1.06 08/30/2006 11:56 AM LDLCALC 74 02/17/2008 03:12 PM ALT 13 02/04/2023 08:36 AM ALT 20 05/17/2017 12:00 AM ALT 23 02/17/2008 03:12 PM HGBA1C 5.7 08/30/2006 11:56 AM documented in this encounter Plan of Treatment Upcoming Encounters Date Type Specialty Care Team Description 03/09/2023 Telemedicine [facility] Taylor Schwartz PA-C [address] [place] [address] Kristi Viveros, Community Health Intel Analyst [address] [place] [address] Health Maintenance Due Date Last Done Comments Alpha-1 Antitrypsin 1960 *ADVANCE DIRECTIVE NOT ON FILE 09/25/2020 Depression Screening 11/12/2020 11/13/2019 COVID-19 Vaccine (3 - Moderna series) 03/21/2021 01/24/2021, 10/07/2020 Influenza Vaccine (FLU shot) (#1) 2023 02/25/2021, 04/12/2019, 04/12/2019, Additional history exists O2 ASSESSMENT COMPLETED IN PAST YEAR FOR COPD 02/03/2024 02/02/2023 DTaP,Tdap,and Td Vaccines (2 - Td or Tdap) 10/21/2027 10/20/2017 LUNG CANCER SCREENING - USE SMARTSET [id number] Completed 06/23/2017 Pneumococcal Vaccine: 65+ Years Completed [...] filedocumented as of this encounter Care Teams Performance Improvement Specialist Relationship Specialty Start Date End Date Kavya Jacinto CRNP [address] [place] [address] PCP - General Nurse Practitioner 12/31/20 documented as of this encounter
--- OUTSIDE RECORDS SUMMARY | 2023-04-08 22:58 | External Medical Summary | Summary of Care ---
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 (HCC) Allergies No known active allergiesdocumented as of this encounter (statuses as of 02/11/2023) Medications Medication Sig Dispensed Refills Start Date [...] 3 LPM continuous oxygen with exertion DME: [facility] Indications: Inc to 4LPM with [...] D, by GOLD 2017 classification ([facility]) INHALE BY MOUTH 2 PUFFS [...] MORNING 60 Each 5 01/22/2023 Active Ipratropium [place] 0.02 % Inhalation Solution (Atrovent)Indication s:Stage 3 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 (HCC) USE 1 VIAL IN NEBULIZER 3 TIMES DAILY FOR SEVERE CHRONIC OBSTRUCTIVE PULMONARY DISEASE 250 mL 4 02/01/2023 Active Vancomycin HCl 125 MG Oral Capsule (Vancocin) Take 1 Capsule by mouth in the morning and 1 Capsule at noon and 1 Capsule in the evening and 1 Capsule before bedtime. Do all this for 14 days. 56 Capsule 0 02/02/2023 3 Active Levalbuterol HCl 1.25 MG/3ML Inhalation Nebulization Solution (Xopenex)Indications :Chronic obstructive pulmonary disease, unspecified (HCC) INHALE 1 AMPULE VIA NEBULIZER 3 TIMES A DAY. 810 mL 1 02/04/2023 Active documented as of this encounter (statuses as of 02/11/2023) Active Problems Problem Noted Date Severe protein-calorie [...] as of this encounter (statuses as of 02/11/2023) Resolved Problems Problem Noted Date Resolved Date [...] as of this encounter (statuses as of 02/11/2023) Immunizations Name Administration Dates Next Due Pneumococcal [...] Miscellaneous Notes * Telephone Encounter - Kayli Horotn RN - 02/11/2023 3:56 PM EDT Patient called in asking for a refill of ipratropium vials as he uses this 3 x a day- his last refill was only one box, which only lasts him approx a week. Called pharmacy back- there is a shortage of the medication, they are not sure if they will be ableto get more than one or 2 week supply at a time presently. Currently patient has 19 refills. Will update patient with myg. documented in this encounter Plan of Treatment Upcoming Encounters Date Type Specialty Care Team Description 03/09/2023 Telemedicine [facility] Taylor Schwartz PA-C [address] [place] [address] Kristi Viveros, Community Health Artificial Leather Calender Operator [address] [place] [address] Health Maintenance Due Date Last [...] 10/20/2017 LUNG CANCER SCREENING - USE SMARTSET 40497 Completed 06/23/2017 Pneumococcal Vaccine: 65+ Years Completed [...] (HCC) documented in this encounter Care Teams Air Analysis Technician Relationship Specialty Start Date End Date Kavya Dillard CRNP [address] [place] [address] PCP - General Nurse Practitioner 12/31/20 documented as of this encounter
--- OUTSIDE RECORDS SUMMARY | 2023-04-08 22:58 | External Medical Summary ---
Author Name Unknown Address Unknown Organization K0G:[facility] [place] [address] [place] [address] Laboratory Report Ordering Provider Test Date Status IWONA BARTLETT 02/04/2023 08:36:00 Final Observation Date Value Abnormality Reference (Units ) Status BUN 02/04/2023 08:36:00 14 6-20 (mg/dL) Final Creatinine 02/04/2023 08:36:00 1.0 0.6-1.2 (mg/dL) Final Glomerular filtration rate/1.73 sq M.predicted [Volume Rate/Area] in Serum, Plasma or Blood by Creatinine-based formula (CKD-EPI) 02/04/2023 08:36:00 73 >=60 (mL/min) Final eGFR is calculated based on the CKD-EPI 2020 equation SODIUM 02/04/2023 08:36:00 141 135-146 (m mol/L) Final Potassium 02/04/2023 08:36:00 4.4 3.5-5.1 (m mol/L) Final Cl 02/04/2023 08:36:00 105 98-107 (mm ol/L) Final CO2 02/04/2023 08:36:00 24 22-32 (mmo l/L) Final Anion gap 02/04/2023 08:36:00 12 7-15 (mmol /L) Final Glucose 02/04/2023 08:36:00 89 70-120 (mg /dL) Final Albumin 02/04/2023 08:36:00 3.8 3.8-5.0 (g /dL) Final AST (Aspartate aminotransferase) 02/04/2023 08:36:00 22 10-50 (U/L) Fin al Alk Phos 02/04/2023 08:36:00 161 Above high normal 35 -130 (U/L) Final Bilirubin, Total 02/04/2023 08:36:00 0.2 <=1 .2 (mg/dL) Final Calcium 02/04/2023 08:36:00 9.4 8.4-10.2 ( mg/dL) Final Protein 02/04/2023 08:36:00 6.2 6.0-8.3 (g /dL) Final ALT (Alanine aminotransferase) 02/04/2023 08:36:00 13 10-50 (U/L) Varghese nixon Performing Location [facility]ORY [place] [address] [facility] [address]
--- OUTSIDE RECORDS SUMMARY | 2023-04-08 22:58 | External Medical Summary | Summary of Care ---
Author Name Unknown Organization [facility] Address [address] [place] [address] Phone [phone] Care Team Providers Care Business Advisor Name Role Phone Kavya Dillardlle GARRETT Primary Care Provider Reason for Visit * Reason Onset Date Comments Information 03/09/2023 Encounter Details Date Type Department Care Team Description 03/09/2023 Telephone [facility] [place] [address] [place], [place] [id number] Services, Scheduling [address] [place] [address] Information (/) Allergies No known active allergiesdocumented [...] 3 LPM continuous oxygen with exertion DME: [facility] Indications: Inc to 4LPM with ambulation/exerti [...] MORNING 60 Each 5 01/22/2023 Active Ipratropium [place] 0.02 % Inhalation Solution (Atrovent)Indication s:Stage 3 [...] and faxed cxr order, pt ins[facility] at [phone], claim [id number] documented in this encounter Plan of Treatment Upcoming Encounters Date Type Specialty Care Team Description 04/19/2023 Telemedicine [facility] Taylor Schwartz PA-C [address] [place] [address] Kristi Viveros, Community Health Manager Music [address] [place] [address] Health Maintenance Due Date Last [...] 10/20/2017 LUNG CANCER SCREENING - USE SMARTSET 19533 Completed 06/23/2017 Pneumococcal Vaccine: 65+ Years Completed [...] filedocumented as of this encounter Care Teams Business Advisor Relationship Specialty Start Date End Date Kavya Dillard CRNP [address] [place] [address] PCP - General Nurse Practitioner 12/31/20 documented as of this encounter
--- OUTSIDE RECORDS SUMMARY | 2023-04-08 22:58 | External Medical Summary | Summary of Care ---
Author Name Unknown Organization [facility] Address [address] [place] [address] Phone [phone] Care Team Providers Care Wound Care Technician Name Role Phone Kavya Dillard Yoanna TUCKER Primary Care Provider Reason for Visit * Reason Onset Date Comments [facility]: Maintenance 03/11/2023 Encounter Details Date Type Department Care Team Description 03/11/2023 Telephone [facility], [facility] [address] [facility] [place] [address] [facility], Nurse [facility] [address] [place] [address] [facility]: Maintenance Allergies No known active allergiesdocumented as of this encounter (statuses as of 03/11/2023) Medications Medication Sig Dispensed Refills Start Date [...] 3 LPM continuous oxygen with exertion DME: [facility] Indications: Inc to 4LPM with ambulation/exerti [...] COPD, group D, by GOLD 2017 classification ([facility]) INHALE BY MOUTH 2 PUFFS EVERY [...] MORNING 60 Each 5 01/22/2023 Active Ipratropium [place] 0.02 % Inhalation Solution (Atrovent)Indication s:Stage 3 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 ([facility]) USE 1 VIAL IN NEBULIZER 3 TIMES DAILY FOR SEVERE CHRONIC OBSTRUCTIVE PULMONARY DISEASE 250 mL 4 02/01/2023 Active Levalbuterol HCl 1.25 MG/3ML Inhalation Nebulization Solution (Xopenex)Indications :Chronic obstructive pulmonary disease, unspecified ([facility]) INHALE 1 AMPULE VIA NEBULIZER 3 TIMES A DAY. 810 mL 1 02/04/2023 Active Ferrous Sulfate 325 (65 Fe) MG Oral Tablet (Feosol) Take 1 Tablet by mouth in the morning and 1 Tablet before bedtime. 60 Tablet 6 03/09/2023 Active documented as of this encounter (statuses as of 03/11/2023) Active Problems Problem Noted Date Severe protein-calorie [...] as of this encounter (statuses as of 03/11/2023) Resolved Problems Problem Noted Date Resolved Date [...] as of this encounter (statuses as of 03/11/2023) Immunizations Name Administration Dates Next Due Pneumococcal [...] encounter Miscellaneous Notes * Telephone Encounter - Abigail Parra RN - 03/11/2023 1:40 PM EDT Phone call from Nilsa with [employer] was at the patient' home to do CXR ordered, and patient did not want it done until tomorrow, sometime after lunch They will be going back tomorrow Latonia Parra RN, BSN [facility] Intake Triage Coordinator [phone] documented in this encounter Plan of Treatment Upcoming Encounters Date Type Specialty Care Team Description 04/19/2023 Telemedicine [facility] Taylor Schwartz PA-C [address] [place] [address] Kristi Viveros, Community Health Oracle Database Administrator [address] [place], [place] [phone] Health Maintenance Due Date Last Done Comments [...] 10/20/2017 LUNG CANCER SCREENING - USE SMARTSET 32876 Completed 06/23/2017 Pneumococcal Vaccine: 65+ Years Completed [...] filedocumented as of this encounter Care Teams Wound Care Technician Relationship Specialty Start Date End Date Kavya Dillard CRNP [address] [place] [address] PCP - General Nurse Practitioner 12/31/20 documented as of this encounter
--- OUTSIDE RECORDS SUMMARY | 2023-04-08 22:58 | External Medical Summary ---
Author Name Unknown Address Unknown Organization [id number]:LABORATORY [facility] [place] - [address] [place] [address] Laboratory Report Ordering Provider Test Date Status IWONA BARTLETT 02/04/2023 08:36:00 Final Observation Date Value Abnormality Reference (Units ) Status Ferritin 02/04/2023 08:36:00 21 Below low normal 30- 400 (ng/mL) Final Performing Location LABORATORY [facility] - [address] [place] [address]
--- OUTSIDE RECORDS SUMMARY | 2023-04-08 22:58 | External Medical Summary | Summary of Care ---
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 (HCC) Allergies No known active allergiesdocumented as of this encounter (statuses as of 02/09/2023) Medications Medication Sig Dispensed Refills Start Date [...] continuous oxygen with exertion DME: [facility] Indications: Inc to 4LPM with ambulation/exerti [...] failure with hypoxia, 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 810 mL 1 02/04/2023 Active documented as of this encounter (statuses as of 02/09/2023) Active Problems Problem Noted Date Severe protein-calorie [...] as of this encounter (statuses as of 02/09/2023) Resolved Problems Problem Noted Date Resolved Date [...] as of this encounter (statuses as of 02/09/2023) Immunizations Name Administration Dates Next Due Pneumococcal [...] encounter Miscellaneous Notes * Telephone Encounter - Luis Antonio Rodriguez [facility] - 02/09/2023 5:15 AM EDTRefused Prescriptions: Disp Refills Ipratropium [place] 0.02 % Inhalation Solu*250 mL 4 Refused By:LUIS ANTONIO RODRIGUEZ for Refusal: Duplicate Request * Telephone Encounter - Luis Antonio Rodriguez [facility] - 02/09/2023 5:07 AM EDT Sent pt message, recently reordered and sent to [facility] 02/03/23 Luis Antonio Rodriguez [facility] Clinical Pharmacist Telepharmacy [phone] 02/09/2023 5:14 AM documented in this encounter Plan of Treatment Upcoming Encounters Date Type Specialty Care Team Description 03/09/2023 Telemedicine [facility] Taylor Schwartz PA-C [address] [place] [address] Kristi Viveros, Community Health Evp Operations [address] [place] [address] Health Maintenance Due Date Last [...] 10/20/2017 LUNG CANCER SCREENING - USE SMARTSET [id number] Completed 06/23/2017 Pneumococcal Vaccine: 65+ Years Completed [...] (HCC) documented in this encounter Care Teams Program Management Manager Relationship Specialty Start Date End Date Kavya Dillard CRNP [address] [place] [address] PCP - General Nurse Practitioner 12/31/20 documented as of this encounter
--- OUTSIDE RECORDS SUMMARY | 2023-04-08 22:58 | External Medical Summary | Summary of Care ---
Author Name Unknown Organization [facility] Address [address] [place] [address] Phone [phone] Care Team Providers Care Client Evaluator Name Role Phone Kavya Dillardlle GARRETT Primary Care Provider Reason for Visit * Reason Onset Date Comments Advice 03/23/2023 Encounter Details Date Type Department Care Team Description 03/23/2023 Telephone [facility] [place] [address] [place] [address] Taylor Schwartz PA-C [address] [place] [address] Advice Allergies No known active allergiesdocumented as of this encounter (statuses as of 03/23/2023) Medications Medication Sig Dispensed Refills Start Date [...] LPM continuous oxygen with exertion DME: [facility] Indications: Inc to 4LPM with [...] group D, by GOLD 2017 classification ([facility]) INHALE BY MOUTH 2 [...] MORNING 60 Each 5 01/22/2023 Active Ipratropium [place] 0.02 % Inhalation Solution (Atrovent)Indication s:Stage 3 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 ([facility]) USE 1 VIAL IN NEBULIZER 3 TIMES DAILY FOR SEVERE CHRONIC OBSTRUCTIVE PULMONARY DISEASE 250 mL 4 02/01/2023 Active Levalbuterol HCl 1.25 MG/3ML Inhalation Nebulization Solution (Xopenex)Indications :Chronic obstructive pulmonary disease, unspecified ([facility]) INHALE 1 AMPULE VIA NEBULIZER 3 TIMES A DAY. 810 mL 1 02/04/2023 Active Ferrous Sulfate 325 (65 Fe) MG Oral Tablet (Feosol) Take 1 Tablet by mouth in the morning and 1 Tablet before bedtime. 60 Tablet 6 03/09/2023 Active documented as of this encounter (statuses as of 03/23/2023) Active Problems Problem Noted Date Severe protein-calorie [...] as of this encounter (statuses as of 03/23/2023) Resolved Problems Problem Noted Date Resolved Date [...] as of this encounter (statuses as of 03/23/2023) Immunizations Name Administration Dates Next Due Pneumococcal [...] encounter Miscellaneous Notes * Telephone Encounter - Taylor Ruiz PA-C - 03/23/2023 5:23 PM EDT Patient called to report he is having increased SOB and left sided CP that radiates into the axilla. He recently took Doxy, Z-pack and prednisone in the last couple weeks. Pain has been present for last 24 hours. This pain has been persistent and doesn't worsen with exertion. Advised the patient heneeds to go to the ED for evaluation. Concern for cardiac etiology or pneumonia. He sounds notably SOB on the phone. He will reach out to his son and be evaluated in the ED. documented in this encounter Plan of Treatment Upcoming Encounters Date Type Specialty Care Team Description 04/19/2023 Telemedicine [facility] Taylor Schwratz PA-C [address] [place] [address] Kristi Viveros, Community Health Director Mortgage [address] [place] [address] Health Maintenance Due Date Last [...] 10/20/2017 LUNG CANCER SCREENING - USE SMARTSET [id number] Completed 06/23/2017 Pneumococcal Vaccine: 65+ Years Completed [...] filedocumented as of this encounter Care Teams Client Evaluator Relationship Specialty Start Date End Date Kavya Dillard CRNP [address] [place] [address] PCP - General Nurse Practitioner 12/31/20 documented as of this encounter
--- OUTSIDE RECORDS SUMMARY | 2023-04-08 22:58 | External Medical Summary ---
Author Name Unknown Address Unknown Organization K01:LABORATORY [facility] [place] - [address] [place] [address] Laboratory Report Ordering Provider Test Date Status IWONA BARTLETT 02/04/2023 08:36:00 Final Observation Date Value Abnormality Reference (Units ) Status Iron 02/04/2023 08:36:00 18 Below low normal 45-176 (ug/dL) Final Iron-binding capacity 02/04/2023 08:36:00 499 Above high normal 250-425 (ug/dL) Final Transferrin Sat % 02/04/2023 08:36:00 4 Below low normal 15-55 (%) Final Performing Location LABORATORY C - [address] [place] [address]
--- OUTSIDE RECORDS SUMMARY | 2023-04-08 22:58 | External Medical Summary ---
Author Name Unknown Address Unknown Organization K0G:LABORATORY [facility] - [address] [place] [address] Laboratory Report Ordering Provider Test Date Status IWONA BARTLETT 02/04/2023 08:36:00 Final Observation Date Value Abnormality Reference (Units ) Status SYNC LEUKOCYTES IN BLOOD BY AUTOMATED COUNT 02/04/2023 08:36:00 6.81 4.00-10.80 (K/uL) Final Segs 02/04/2023 08:36:00 38.6 Below low normal 40.0-75.0 (%) Final Lymphs % 02/04/2023 08:36:00 43.0 Above high normal 18.0-42.0 (%) Final Monos 02/04/2023 08:36:00 9.8 1.0-11.0 (%) Final Eosinophils 02/04/2023 08:36:00 8.5 Above high normal 0.0-6.0 (%) Final Basos 02/04/2023 08:36:00 0.1 0.0-2.0 (%) Final Absolute Segs 02/04/2023 08:36:00 2.62 1.80-7.70 (K/uL) Final Lymphs, absolute 02/04/2023 08:36:00 2.93 1.00-4.80 (K/ul) Final Monos, Abs 02/04/2023 08:36:00 0.67 0.00-1.10 (K/uL) Final Eos, Abs 02/04/2023 08:36:00 0.58 0.00-0.70 (K/uL) Final Basos, Abs 02/04/2023 08:36:00 0.01 0.00-0.20 (K/uL) Final Performing Location LABORATORY [facility] [facility] - [address] [place] [address]
--- OUTSIDE RECORDS SUMMARY | 2023-04-08 22:58 | External Medical Summary | Summary of Care ---
Author Name Unknown Organization [facility] Address [address] [place] [address] Phone [phone] Care Team Providers Care Perfect Binder Feeder Offbearer Name Role Phone Kavya Jacinto Primary Care Provider Reason for Visit * Reason Comments eRx-Medication Refill Encounter Details Date Type Department Care Team Description 01/21/2023 Refill [facility] Practice [facility] [address] [facility] [address] Kavya Jacinto CRNP [address] [place] [address] Allergies No known active allergiesdocumented as of this encounter (statuses as of 01/22/2023) Medications Medication Sig Dispensed Refills Start Date [...] Active oxygen IN GASIndications:Inc to 4LPM with ambulation/exertio n 2.5 lpm at rest 3 LPM continuous oxygen with exertion DME: [facility] Indications: Inc to 4LPM with ambulation/exe rtion 1 Each 0 10/26/202 1 Active Saccharomyces boulardii 250 MG Oral Capsule (Florastor) Take 1 Capsule by mouth in the morning. Florastor . 0 Active Famotidine 20 MG Oral Tablet (Pepcid) Take by mouth 1 Tablet as needed before bedtime for Heartburn. 30 Tablet 11 2 Active Folic Acid 1 MG Oral TabletIndications: Chronic respiratory failure with hypoxia, on home O2 therapy ([facility]) Take 1 Tablet (1 mg) by mouth [...] Patch (Lidoderm) AT BEDTIME 0 3 Active Levalbuterol HCl 1.25 MG/3ML Inhalation Nebulization Solution (Xopenex) 3 mL. 0 2 Active guaiFENesin 200 MG Oral Tablet TAKE 1 TABLET BY MOUTH EVERY 6 HOURS NEEDED FOR CONGESTION FOR 4 DAYS 0 3 Active Ventolin HFA 108 (90 Base) MCG/ACT Inhalation Aerosol SolutionIndication s:COPD, group D, by GOLD 2017 classification ([facility]) INHALE BY MOUTH 2 PUFFS EVERY 4 [...] Ellipta 100-62.5-25 MCG/ACT Aerosol Powder Breath Activated (Fluticasone-Umecl idinium-Vilanterol ) INHALE 1 PUFF BY MOUTH IN THE MORNING 60 Each 5 3 Active Incruse Ellipta 62.5 MCG/ACT Inhalation Aerosol Powder Breath Activated Inhale 1 Puff by mouth daily. 30 Each 3 3 01/23/20 23 Discontinued(Me dication/Dose Changed) Trelegy Ellipta 100-62.5-25 MCG/ACT Aerosol Powder Breath Activated (Fluticasone-Umecl idinium-Vilanterol ) Inhale 1 Puff by mouth in the morning. 60 Blister Dosing Unit 3 3 01/23/20 23 Discontinued documented as of this encounter (statuses as of 01/22/2023) Active Problems Problem Noted Date Severe protein-calorie [...] as of this encounter (statuses as of 01/22/2023) Resolved Problems Problem Noted Date Resolved Date [...] as of this encounter (statuses as of 01/22/2023) Immunizations Name Administration Dates Next Due Pneumococcal [...] Miscellaneous Notes * Telephone Encounter - Vernon Wood RPh - 01/22/2023 10:08 AM EDTSigned Prescriptions: Disp Refills Trelegy Ellipta 100-62.5-25 MCG/ACT Aeroso*60 Each5 Sig: INHALE 1 PUFF BY MOUTH IN THE MORNINGAuthorizing Provider: KAVYA JACINTO User: VERNON WOOD documented in this encounter Plan of Treatment Upcoming Encounters Date Type Specialty Care Team Description 02/02/2023 Telemedicine [facility] Taylor Schwartz PA-Leonila [address] [place] [address] Radha Patten, Community Health Strap Stitcher [address] [place] [address] [place] [address] Health Maintenance Due Date [...] 10/20/2017 LUNG CANCER SCREENING - USE SMARTSET [id number] Completed 06/23/2017 Pneumococcal Vaccine: 65+ Years Completed [...] filedocumented as of this encounter Care Teams Perfect Binder Feeder Offbearer Relationship Specialty Start Date End Date Kavya Jacinto CRNP [address] [place] [address] PCP - General Nurse Practitioner 12/31/20 documented as of this encounter
--- OUTSIDE RECORDS SUMMARY | 2023-04-08 22:58 | External Medical Summary | Summary of Care ---
Author Name Unknown Organization [facility] Address [address] [place] [address] Phone [phone] Care Team Providers Care Fabricating Machine Operator Name Role Phone Kavya Dillardlle GARRETT Primary Care Provider Reason for Visit * Reason Onset Date Comments Appointment 02/02/2023 Encounter Details Date Type Department Care Team Description 02/02/2023 Telephone [facility] [place] [place] [address] [place], [place] [id number] Services, Scheduling [address] [place] [address] Appointment (/) Allergies No known active allergiesdocumented as of this encounter (statuses as of 02/02/2023) Medications Medication Sig Dispensed Refills Start Date [...] 3 LPM continuous oxygen with exertion DME: [facility] Indications: Inc to 4LPM with ambulation/exerti on [...] failure with hypoxia, on home O2 therapy ([facility]) Take 1 Tablet (1 mg) by mouth [...] COPD, group D, by GOLD 2017 classification ([facility]) INHALE BY MOUTH 2 PUFFS EVERY 4 [...] MORNING 60 Each 5 01/22/2023 Active Ipratropium [place] 0.02 % Inhalation Solution (Atrovent)Indication s:Stage 3 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 ([facility]) USE 1 VIAL IN NEBULIZER 3 TIMES DAILY FOR SEVERE CHRONIC OBSTRUCTIVE PULMONARY DISEASE 250 mL 4 02/01/2023 Active Vancomycin HCl 125 MG Oral Capsule (Vancocin) Take 1 Capsule by mouth in the morning and 1 Capsule at noon and 1 Capsule in the evening and 1 Capsule before bedtime. Do all this for 14 days. 56 Capsule 0 02/02/2023 3 Active predniSONE 20 MG Oral Tablet (Deltasone) Take 2 Tablets by mouth in the morning for 5 days. 10 Tablet 0 02/02/2023 3 Active documented as of this encounter (statuses as of 02/02/2023) Active Problems Problem Noted Date Severe protein-calorie [...] as of this encounter (statuses as of 02/02/2023) Resolved Problems Problem Noted Date Resolved Date [...] as of this encounter (statuses as of 02/02/2023) Immunizations Name Administration Dates Next Due Pneumococcal [...] * Telephone Encounter - JAH Guzman - 02/02/2023 2:05 PM EDT Call to pt to confirm return [facility] telemed for 03/09 at 3pm, pt agreeable, also made him aware blood work was ordered through mobile phlebotomy documented in this encounter Plan of Treatment Upcoming Encounters Date Type Specialty Care Team Description 03/09/2023 Telemedicine [facility] Taylor Schwartz PA-C [address] [place] [address] Kristi Viveros, Community Health Director Fraud [address] [place] [address] Health Maintenance Due Date Last [...] 10/20/2017 LUNG CANCER SCREENING - USE SMARTSET [id number] Completed 06/23/2017 Pneumococcal Vaccine: 65+ Years Completed [...] filedocumented as of this encounter Care Teams Fabricating Machine Operator Relationship Specialty Start Date End Date Kavya Dillard CRNP [address] [place] [address] PCP - General Nurse Practitioner 12/31/20 documented as of this encounter
--- OUTSIDE RECORDS SUMMARY | 2023-04-08 22:58 | External Medical Summary | Summary of Care ---
Author Name Unknown Organization [facility] Address [address] [place] [address] Phone [phone] Care Team Providers Care Coater Operator Name Role Phone Kavya Jacinto Primary Care Provider Reason for Visit * Reason Comments eRx-Medication Refill Encounter Details Date Type Department Care Team Description 02/04/2023 [facility]ill [facility] [address] [facility] [address] Kavya Jacinto CRNP [address] [place] [address] Chronic obstructive pulmonary disease, unspecified (HCC) Allergies No known active allergiesdocumented as of this encounter (statuses as of 02/04/2023) Medications Medication Sig Dispensed Refills Start Date [...] 3 LPM continuous oxygen with exertion DME: [facility] Indications: Inc to 4LPM with ambulation/exer tion [...] failure with hypoxia, on home O2 therapy ([facility]) Take 1 Tablet (1 mg) by mouth [...] :COPD, group D, by GOLD 2017 classification ([facility]) INHALE BY MOUTH 2 PUFFS EVERY 4 [...] MORNING 60 Each 5 3 Active Ipratropium [place] 0.02 % Inhalation Solution (Atrovent)Indicatio ns:Stage 3 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 ([facility]) USE 1 VIAL IN NEBULIZER 3 TIMES [...] Solution (Xopenex)Indication s:Chronic obstructive pulmonary disease, unspecified ([facility]) INHALE 1 AMPULE VIA NEBULIZER 3 TIMES A DAY. 810 mL 1 3 Active Levalbuterol HCl 1.25 MG/3ML Inhalation Nebulization Solution (Xopenex) 3 mL. 0 2 02/05/20 23 Discontinued documented as of this encounter (statuses as of 02/04/2023) Active Problems Problem Noted Date Severe protein-calorie [...] as of this encounter (statuses as of 02/04/2023) Resolved Problems Problem Noted Date Resolved Date [...] as of this encounter (statuses as of 02/04/2023) Immunizations Name Administration Dates Next Due Pneumococcal [...] encounter Miscellaneous Notes * Telephone Encounter - Liss Montoya [facility] - 02/04/2023 2:25 PM EDTSigned Prescriptions: Disp Refills Levalbuterol HCl 1.25 MG/3ML Inhalation Ne*810 mL 1 Sig: INHALE 1 AMPULE VIA NEBULIZER 3 TIMES A DAY.Authorizing Provider: KAVYA JACINTO User: LISS MONTOYA documented in this encounter Plan of Treatment Upcoming Encounters Date Type Specialty Care Team Description 03/09/2023 Telemedicine [facility] Taylor Schwartz PA-C [address] [place] [address] Kristi Viveros, Community Health Information Systems Security Analyst [address] [place] [address] Health Maintenance Due Date Last [...] 10/20/2017 LUNG CANCER SCREENING - USE SMARTSET [id number] Completed 06/23/2017 Pneumococcal Vaccine: 65+ Years Completed [...] of this encounter Visit Diagnoses Diagnosis Chronic obstructive pulmonary disease, unspecified (HCC) documented in this encounter Care Teams Coater Operator Relationship Specialty Start Date End Date Kavya Jacinto CRNP [address] [place] [address] PCP - General Nurse Practitioner 12/31/20 documented as of this encounter
--- OUTSIDE RECORDS SUMMARY | 2023-04-08 22:58 | External Medical Summary | Summary of Care ---
Author Name Unknown Organization [facility] Address [address] [place] [address] Phone [phone] Care Team Providers Care Coremaker Helper Name Role Phone Kavya Dillardlle GARRETT Primary Care Provider Reason for Visit * Reason Onset Date Comments Appointment 02/26/2023 Encounter Details Date Type Department Care Team Description 02/26/2023 Telephone [facility] [place] [place] [address] [place] [address] Services, Scheduling [address] [place] [address] Appointment (//) Allergies No known active allergiesdocumented as of this encounter (statuses as of 02/26/2023) Medications Medication Sig Dispensed Refills Start Date [...] 3 LPM continuous oxygen with exertion DME: [facility] Indications: Inc to 4LPM with ambulation/exerti [...] group D, by GOLD 2017 classification ([facility]) INHALE BY MOUTH 2 PUFFS EVERY [...] MORNING 60 Each 5 01/22/2023 Active Ipratropium [place] 0.02 % Inhalation Solution (Atrovent)Indication s:Stage 3 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 ([facility]) USE 1 VIAL IN NEBULIZER 3 TIMES DAILY FOR SEVERE CHRONIC OBSTRUCTIVE PULMONARY DISEASE 250 mL 4 02/01/2023 Active Levalbuterol HCl 1.25 MG/3ML Inhalation Nebulization Solution (Xopenex)Indications :Chronic obstructive pulmonary disease, unspecified ([facility]) INHALE 1 AMPULE VIA NEBULIZER 3 TIMES A DAY. 810 mL 1 02/04/2023 Active documented as of this encounter (statuses as of 02/26/2023) Active Problems Problem Noted Date Severe protein-calorie [...] as of this encounter (statuses as of 02/26/2023) Resolved Problems Problem Noted Date Resolved Date [...] as of this encounter (statuses as of 02/26/2023) Immunizations Name Administration Dates Next Due Pneumococcal [...] * Telephone Encounter - JAH Guzman - 02/26/2023 2:45 PM EDT LMOM for pt to confirm return [facility] telemed for 03/09 at 3/330pm documented in this encounter Plan of Treatment Upcoming Encounters Date Type Specialty Care Team Description 03/09/2023 Telemedicine [facility] Taylor Schwartz PA-C [address] [place] [address] Kristi Viveros, Community Health Employee Benefits Insurance Agent [address] [place] [address] Health Maintenance Due Date Last [...] 10/20/2017 LUNG CANCER SCREENING - USE SMARTSET [id number] Completed 06/23/2017 Pneumococcal Vaccine: 65+ Years Completed [...] filedocumented as of this encounter Care Teams Coremaker Helper Relationship Specialty Start Date End Date Kavya Dillard CRNP [address] [place] [address] PCP - General Nurse Practitioner 12/31/20 documented as of this encounter
--- OUTSIDE RECORDS SUMMARY | 2023-04-08 22:59 | External Medical Summary | Summary of Care ---
Author Name Unknown Organization [facility] Address [address] [place] [address] Phone [phone] Care Team Providers Care Corporate Representative Name Role Phone Kavya Dillard GARRETT Primary Care Provider Reason for Visit * Reason Comments case management Encounter Details Date Type Department Care Team Description 11/17/2022 Broker Agricultural ProduceMotor Builder Assembler Practice [facility] [address] [place] [address] Kayli Horton, RN Medical home patient encounter* Allergies No known active allergiesdocumented as of this encounter (statuses as of 11/17/2022) Medications Medication Sig Dispensed Refills Start Date [...] 3 LPM continuous oxygen with exertion DME: [facility] Indications: Inc to 4LPM with ambulation/exert ion [...] EVERY DAY 90 Tablet 3 06/30/2022 Active Vancomycin HCl 125 MG Oral Capsule (Vancocin) 1 CAP DAILY UNTIL FECAL TRANSPLANT. 90 Capsule 1 06/29/2022 Active predniSONE 20 MG Oral Tablet (Deltasone) [...] COPD, group D, by GOLD 2017 classification ([facility]) INHALE BY MOUTH 2 PUFFS EVERY 4 HOURS NEEDED FOR WHEEZING. BRAND NECESSARY 54 g 3 07/22/2022 Active Triamcinolone Acetonide 55 MCG/ACT Nasal Aerosol (Nasacort Allergy 24HR) Administer 2 Sprays into each nostril in the morning. 1 Each 1 08/20/2022 Active Incruse Ellipta 62.5 MCG/ACT Inhalation Aerosol Powder Breath Activated Inhale 1 Puff by mouth daily. 30 Each 3 08/25/2022 Active Trelegy Ellipta 100-62.5-25 MCG/ACT Aerosol Powder Breath Activated (Fluticasone-Umeclid inium-Vilanterol) Inhale 1 Puff by mouth in the morning. 60 Blister Dosing Unit 3 09/08/2022 Active Potassium Chloride ER 20 MEQ Oral Tablet Extended Release TAKE 1 TABLET BY MOUTH EVERY DAY IN THE MORNING 90 Tablet 3 09/22/2022 Active Azithromycin 250 MG Oral Tablet (Zithromax Z-Kota) Take two tablets by mouth on first day, then 1 tablet daily until gone 6 Tablet 0 10/28/2022 Active documented as of this encounter (statuses as of 11/17/2022) Active Problems Problem Noted Date Severe protein-calorie [...] as of this encounter (statuses as of 11/17/2022) Resolved Problems Problem Noted Date Resolved Date [...] as of this encounter (statuses as of 11/17/2022) Immunizations Name Administration Dates Next Due Pneumococcal Conjugate Vacc, 13 Valent (Prevnar) 10/20/2017 Pneumococcal Polysaccharide PPV23 (Pneumovax) Seasonal Influenza, Quadriva lent, No Preserve, 6 Mons & Above, IM 02/28/2018,03/12/2017 Seasonal Influenza, Split, IIV3, With Preserve, [...] on file documented as of this encounter Progress Notes * Kayli Horton RN - 11/17/2022 3:28 PM EDT CM Progress note S: Patient called in, Inquires what azythromycin is, as he has some at home. He also reports havingsome diarrhea. He has not started the antibiotic due to diarrhea/c. Diff at this time. Reports breathing is currently "pretty good", continues to have some sinus pain/congestion to R ear. No drainagefrom area. Was able to get outside for a birthday democrat for his son, states "I paid for it for daysafter" played him out. Has no other concerns at this time. O: Phone call follow up A: Alert and oriented P: reinforced monitoring and reporting any concerning symptoms, worsening sinus pain/drainage or diarrhea. Upcoming [facility] visit on one month. CM to follow up after that appt. documented in this encounter Plan of Treatment Upcoming Encounters Date Type Specialty Care Team Description 12/23/2022 Telemedicine [facility] Taylor Schwartz PA-C [address] [place] [address] Radha Patten, Community Health Webfed Offset Press Operator [address] [place] [address] [place] [address] Health Maintenance Due Date Last Done Comments Alpha-1 Antitrypsin 1958 Hepatitis C Screening 1958 *ADVANCE DIRECTIVE NOT ON FILE 09/25/2020 Depression Screening, Annual for Pts 12 and Over 11/12/2020 11/13/2019 COVID-19 Vaccine (3 - Moderna series) 03/21/2021 01/24/2021, 10/07/2020 Influenza Vaccine (FLU shot) (Season Ended) 2023 02/25/2021, 04/12/2019, 04/12/2019, Additional history exists O2 ASSESSMENT COMPLETED IN PAST YEAR FOR COPD 10/29/2023 10/28/2022 DTaP,Tdap,and Td Vaccines (2 - Td or Tdap) 10/21/2027 10/20/2017 LUNG CANCER SCREENING - USE SMARTSET 60126 Completed 06/23/2017 Pneumococcal Vaccine: 65+ Years Completed [...] as of this encounter Visit Diagnoses Diagnosis Medical home patient encounter- Primary Other specified examination documented in this encounter Care Teams Corporate Representative Relationship Specialty Start Date End Date Kavya Dillard CRNP [address] [place] [address] PCP - General Nurse Practitioner 12/31/20 documented as of this encounter
--- OUTSIDE RECORDS SUMMARY | 2023-04-08 22:59 | External Medical Summary | Summary of Care ---
Author Name Unknown Organization [facility] Address [address] [place] [address] Phone [phone] Care Team Providers Care Edge Runner Name Role Phone Kavya Dillard Yoanna GARRETT Primary Care Provider Reason for Visit * Reason Comments [facility]: Telehealth Encounter Details Date Type Department Care Team Description 12/23/2022 Telemedicine [facility] [place] [address] [place] [address] Taylor Schwartz PA-C [address] [place] [address] Radha Patten [address] [place] [id number] Recurrent colitis due to Clostridioides difficile*; COPD, group D, by GOLD 2017 classification ([facility]); Chronic respiratory failure with hypoxia, on home O2 therapy ([facility]); Diarrhea, unspecified type Allergies No known active allergiesdocumented as of this encounter (statuses as of 12/23/2022) Medications Medication Sig Dispensed Refills Start Date [...] LPM continuous oxygen with exertion DME: [facility] Indications: Inc to 4LPM with ambulation/exert [...] failure with hypoxia, on home O2 therapy ([facility]) Take 1 Tablet (1 mg) [...] group D, by GOLD 2017 classification ([facility]) INHALE BY MOUTH 2 PUFFS EVERY 4 [...] as of this encounter (statuses as of 12/23/2022) Active Problems Problem Noted Date Severe protein-calorie [...] as of this encounter (statuses as of 12/23/2022) Resolved Problems Problem Noted Date Resolved Date [...] as of this encounter (statuses as of 12/23/2022) Immunizations Name Administration Dates Next Due Pneumococcal [...] Sign Reading Time Taken Comments Blood Pressure 114/54 12/23/2022 3:05 PM EDT Pulse 98 12/23/2022 3:05 PM EDT apical HR x1 min Temperature 36.4 C (97.5 F) 12/23/2022 3 :05 PM EDT Respiratory Rate 20 12/23/2022 3:05 PM EDT Oxygen Saturation 97% 12/23/2022 3:0 5 PM EDT Inhaled Oxygen Concentration - - Weight - - Height - - Body Mass Index - - documented in this encounter Progress Notes * Taylor Ruiz PA-C - 12/23/2022 4:02 PM EDT [facility] Provider Telemedicine Visit Date: 12/23/2022 Time: 4:02 PM Assessment/Plan: 1. Recurrent colitis due to Clostridioides difficile - CLOSTRIDIUM DIFFICILE, PCR; Future 2. COPD, group D, by GOLD 2017 classification ([facility]) Continue inhalers 3. Chronic respiratory failure with hypoxia, on home O2 therapy ([facility]) Maintaining on 3 liters of oxygen 4. Diarrhea, unspecified type - CLOSTRIDIUM DIFFICILE, PCR; Future Follow up plan: Patient looked and sounded much better on exam today. He is doing well at home without complaints. Patient was confused about the rescue kit. Will send prednisone to have on hand. He is having more persistent diarrhea now. Will order test to rule out C.diff as he has had recurrent infections in the past. Advised to try not to use rescue kit unless absolutely needed as this will contribute to recurrent C.diff infections. A total of 35 minutes was spent face to face via video-based telemedicine. Subjective Patient location: HOME. I was not in a hospital or clinic location. After connecting through televideo, patient was verified with two unique identifiers. Patient (or authorized legal territory sales representative) was then informed that this was a Telemedicine visit and being conducted confidentially over secure lines. Methods to assure confidentiality were taken. Patient acknowledged consent and understanding of privacy and security of the Telemedicine visit. The patient agreed to participate. Reason for Visit: Follow-Up Current Concerns: Jer Abreu Jr. is a 82 year old male seen today for a [facility] Telemedicine Provider Visit. Date of last known acute care visit: 10/28/22 with myself Reason for last known acute care visit: Patient suffers from chronic respiratory failure and is oxygen dependent. His last hospitalization was in June for pseudomonal pneumonia. He has a history of C.diff and chronic diarrhea. He was francis extended course of vancomycin and was referred for a fecal transplant. He was scheduled to see ID but missed the appointments. PCP office sent Rx for Sheela. Today's concerns are: Patient states he is doing better. He feels his breathing is improving. He is maintaining at 2.5-3.0 liters of oxygen. No changes in cough or sputum production. His SOB/XIAO is at baseline. He gets occasional sinusitis and recently took the course of steroids that was in his rescue pack with relief of symptoms. He isn't sure if he has tried the steroid nasal spray in the past. I sent a Rx in September. Appetite is good, he eats small meals more frequently. He feels his weight is holding steady. He has been having diarrhea again about 4-5 times a day. He gets up in the middle of the night for a bowel movement. No abdominal pain or excessive gas. No changes in urinary output. He drinks 2 beers a day. ROS: See HPI Objective Physical Exam: BP 114/54 (BP Site: Right Arm, BP Position: Sitting, BP Cuff Size: Regular) | Pulse 98 Comment: apical HR x1 min | Temp 36.4 C (97.5 F) | Resp 20 | SpO2 97% Previous Wts: Wt Readings from Last 5 Encounters: 10/28/22 51.7 kg (114 lb) 02/10/22 46.7 kg (103 lb) 01/28/22 46.3 kg (102 lb) 12/16/21 46.7 kg (103 lb) 10/29/21 48.6 kg (107 lb 3.2 oz) Previous BPs: BP Readings from Last 5 Encounters: 12/23/22 114/54 10/28/22 110/62 09/10/22 110/80 08/20/22 102/52 07/16/22 120/58 Physical Exam Constitutional: General: He is not in acute distress. Comments: Frail appearing HENT: Head: Normocephalic and atraumatic. Mouth/Throat: Pharynx: Oropharynx is clear. Eyes: Extraocular Movements: Extraocular movements intact. Conjunctiva/sclera: Conjunctivae normal. Cardiovascular: Rate and Rhythm: Normal rate. Rhythm irregular. Pulmonary: Effort: Pulmonary effort is normal. No respiratory distress. Breath sounds: Normal breath sounds. Comments: Slightly decreased at the bases Neurological: General: No focal deficit present. Mental [...] 25 mg into the rectum 2 times aday as needed for Hemorrhoids. Multiple Vitamins-Minerals (MULTIVITAMIN ADULTS) TABS Take by mouth daily. oxygen IN GAS 2.5 lpm at rest 3 LPM continuous oxygen with exertion DME: [facility] Indications: Inc to 4LPM with ambulation/exertion 1 Each 0 Saccharomyces boulardii 250 MG Oral Capsule (Florastor) Take 1 Capsule by mouth in the morning.Florastor . Famotidine 20 MG Oral Tablet (Pepcid) Take by mouth 1 Tablet as needed before bedtime for Heartburn. 30 Tablet 11 Folic Acid 1 MG Oral Tablet Take 1 Tablet (1 mg) by mouth in the morning. 90 Tablet 3 Roflumilast 500 MCG Oral Tablet (Daliresp) Take 1 Tablet (500 mcg) by mouth in the morning. 180Tablet 4 Omeprazole 40 MG Oral Capsule Delayed Release (PriLOSEC) TAKE 1 CAPSULE BY MOUTH DAILY. 1 HOUR BEFORE THE FIRST MEAL OF THE DAY 90 Capsule 1 Vitamin B-12 100 MCG Oral Tablet (vitamin B-12) TAKE 1 TABLET BY MOUTH DAILY 90 Tablet 3 Thiamine HCl 100 MG Oral Tablet (vitamin B-1) TAKE 1 TABLET BY MOUTH EVERY DAY 90 Tablet 3 Vancomycin HCl 125 MG Oral Capsule (Vancocin) 1 CAP DAILY UNTIL FECAL TRANSPLANT. 90 Capsule 1 predniSONE 20 MG Oral Tablet (Deltasone) (Patient [...] nostril in the morning. 1 Each 1 Incruse Ellipta 62.5 MCG/ACT Inhalation Aerosol Powder Breath Activated Inhale 1 Puff by mouth daily. 30 Each 3 Trelegy Ellipta 100-62.5-25 MCG/ACT Aerosol Powder Breath Activated (Rsexrolfdkl-Hdjqhddsqqmw-Gjzcaokhqv) Inhale 1 Puff by mouth in the morning. 60 Blister Dosing Unit 3 Potassium Chloride ER 20 MEQ Oral Tablet Extended Release TAKE 1 TABLET BY MOUTH EVERY DAY IN THE MORNING 90 Tablet 3 Azithromycin 250 MG Oral Tablet (Zithromax Z-Kota) Take two tablets by mouth on first day, then 1 tablet daily until gone 6 Tablet 0 No current facility-administered medications for this visit. Mobility Evaluation: MACH10 Assessment: Assistive Devices Used in the Home: Walker (standard or rollator) Recent Falls: Falls in the last 6 months: No SDoH: DME (Durable Medical Equipment) needs Routine Transportation Urgent Transportation Social Isolation Taylor Ruiz PA-C 4:02 PM *Communication sent to PCP (via [facility] if [facility]), Population Health Care Team members, relevant Specialty Care Physicians* * Radha Patten Community Health Forensic Examiner - 12/23/2022 3:32 PM EDT Community Health Forensic Examiner Visit Date: 12/23/2022 Time: 3:00 PM Name: Jer Abreu Jr. : 1940 Referral Source: Provider Source of Information: Patient Spoken language: Japanese Patient can read in Japanese: Yes. Vice President Of Talent Management needed: No. COVID-19 screening completed: Yes Vitals: Vital signs completed: Yes, vital signs within normal range. BP 114/54 (BP Site: Right Arm, BP Position: Sitting, BP Cuff Size: Regular) | Pulse 98 Comment: apical HR x1 min | Temp 36.4 C (97.5 F) | Resp 20 | SpO2 97% Condition Changes: Changes in health or social status since last visit: [facility] home visit for [facility] provider return telemed appt. The patient has new concerns since last visit: Yes, c/o continuing loose stools Progress towards goals since last visit: Continues living independently Medications: Medication review completed? No, Does the patient have barriers to medication adherence? n Patient reports difficulty paying for medications or might in the future: No. Telehealth: This is a telehealth visit: Yes. Type of telehealth visit: Return/Routine Visit conducted with: Physician/AP Symptoms Surveys and Evaluations: MAHC10 completed this visit: Yes. Score is 4 or more? Yes, notified Provider/Table Worker Last flowsheet values for MAHC10: Age 65+: 1 (10/28/2022 12:00 PM) Diagnosis (3 or more co-existing): 1 (10/28/2022 12:00 PM) Prior history of falls within 3 months: 0 (10/28/2022 12:00 PM) Incontinence: 1 (10/28/2022 12:00 PM) Visual impairment: 0 (10/28/2022 12:00 PM) Impaired functional mobility: 1 (10/28/2022 12:00 PM) Environmental hazards: 1 (10/28/2022 12:00 PM) Poly Pharmacy (4 or more prescriptions - any type): 1 (10/28/2022 12:00 PM) Pain affecting level of function: 0 (10/28/2022 12:00 PM) Cognitive impairment: 0 (10/28/2022 12:00 PM) Score - a score of 4 or more is considered at risk for fallin (10/28/2022 12:00 PM) Unable to complete CATHY survey d/t network issues. Plan: Plan for the patient provided patient with hat, gloves, sterile specimen container and tongue depressor. Advised patient to place hat on toilet to collect BM. Use tongue depressor to place stool in specimen container. Place specimen in biohazard bag. Refridgerate until able to be transported to PCP office for testing. Patient verbalzied understanding. Also wrote down recommendations from today's visit - knot picker cloth prednisone and nasocort at [facility] in [place]. Start a daily probiotic and try probiotic foods or drinks like yogurt and kombucha. Follow Up: Patient encouraged to call the intake phone number for all urgent but not emergent issues. Scheduled to follow up with patient in as scheduled. [facility] 12/23/2022 3:00 PM documented in this encounter Plan of Treatment Upcoming Encounters Date Type Specialty Care Team Description 02/02/2023 Telemedicine [facility] Taylor Schwartz PA-C [address] [place] [address] Radha Patten [facility] [address] [place] [address] [place] [address] Scheduled Orders Name Type Priority Associated Diagnoses Orde r Schedule CLOSTRIDIUM DIFFICILE, PCR Lab Routine Recurrent colitis due to Clostridioides difficile Diarrhea, unspecified type Expected: 12/30/2022 (Approximate), Expires: 12/23/2023 Health Maintenance Due Date Last Done Comments [...] 10/20/2017 LUNG CANCER SCREENING - USE SMARTSET 97255 Completed 06/23/2017 Pneumococcal Vaccine: 65+ Years Completed [...] as of this encounter Visit Diagnoses Diagnosis Recurrent colitis due to Clostridioides difficile- Primary COPD, group D, by GOLD 2017 classification ([facility]CC) Chronic respiratory failure with hypoxia, on home O2 therapy ([facility]) Diarrhea, unspecified type documented in this encounter Care Teams Edge Runner Relationship Specialty Start Date End Date Kavya Dillard CRNP [address] [place] [address] PCP - General Nurse Practitioner 12/31/20 documented as of this encounter"
--- OUTSIDE RECORDS SUMMARY | 2023-04-08 22:59 | External Medical Summary | Summary of Care ---
Author Name Unknown Organization [facility] Address [address] [place] [address] Phone [phone] Care Team Providers Care Cytotechnologist Supervisor Name Role Phone Kavya Dillard Yoanna GARRETT Primary Care Provider Reason for Visit * Reason Comments [facility]: Telehealth Encounter Details Date Type Department Care Team Description 10/28/2022 Telemedicine [facility], [place] [address] [place] [address] Taylor Schwartz PA-C [address] [place] [address] Radha Patten [address] [place] [address] COPD, group D, by GOLD 2017 classification ([facility])*; Chronic respiratory failure with hypoxia, on home O2 therapy ([facility]) Allergies No known active allergiesdocumented as of this encounter (statuses as of 10/28/2022) Medications Medication Sig Dispensed Refills Start Date [...] 3 LPM continuous oxygen with exertion DME: [facility] Indications: Inc to 4LPM with [...] failure with hypoxia, on home O2 therapy ([facility]) Take 1 Tablet (1 mg) by [...] by GOLD 2017 classification ([facility]) INHALE BY MOUTH 2 PUFFS EVERY [...] THE MORNING 90 Tablet 3 09/22/2022 Active predniSONE 20 MG Oral Tablet (Deltasone) Take 2 Tablets by mouth in the morning for 5 days. 10 Tablet 0 10/28/2022 3 Active Azithromycin 250 MG Oral Tablet (Zithromax Z-Kota) Take two tablets by mouth on first day, then 1 tablet daily until gone 6 Tablet 0 10/28/2022 Active documented as of this encounter (statuses as of 10/28/2022) Active Problems Problem Noted Date Severe protein-calorie [...] as of this encounter (statuses as of 10/28/2022) Resolved Problems Problem Noted Date Resolved Date [...] as of this encounter (statuses as of 10/28/2022) Immunizations Name Administration Dates Next Due Pneumococcal [...] Sign Reading Time Taken Comments Blood Pressure 110/62 10/28/2022 11:45 AM EDT Pulse 64 10/28/2022 11:45 AM EDT Temperature 36.7 C (98.1 F) 10/28/2022 11:45 AM E DT Respiratory Rate 18 10/28/2022 11:45 AM EDT Oxygen Saturation 99% 10/28/2022 11:45 AM EDT Inhaled Oxygen Concentration - - Weight 51.7 kg (114 lb) 10/28/2022 11:45 AM EDT Height - - Body Mass Index 18.4 01/28/2022 5:32 PM EDT documented in this encounter Progress Notes * Radha Patten [facility] Hop Strainer - 10/28/2022 12:30 PM EDT Community [facility] Hop Strainer Visit Date: 10/28/2022 Time: 10:30 AM Name: Jer Abreu Jr. : 1940 Referral Source: Provider Source of Information: Patient Spoken language: Yakut Patient can read in Yakut: Yes. Control Clerk Repairs needed: No. COVID-19 screening completed: Yes Vitals: Vital signs completed: Yes, vital signs within normal range. BP 110/62 (BP Site: Left Arm, BP Position: Sitting, BP Cuff Size: Regular) | Pulse 64 | Temp 36.7 C (98.1 F) | Resp 18 | Wt 51.7 kg (114 lb) | SpO2 99% | BMI 18.40 kg/m | BSA 1.55 m Condition Changes: Changes in health or social status since last visit: [facility] for return telemed with [facility] provider The patient has new concerns since last visit: Yes, reports arthritis pain of hands. TT to providerto make aware. Advised for patient to take ibuprofen 2 to 3 tablets (200mg) up to twice a day. Progress towards goals since last visit: Continues [...] Score is 4 or more? Yes, notified Provider/Odd Shoe Examiner Last flowsheet values for [facility]: Age 65+: 1 (09/10/2022 11:00 AM) Diagnosis (3 or more co-existing): 1 (09/10/2022 11:00 AM) Prior history of falls within 3 months: 0 (09/10/2022 11:00 AM) Incontinence: 1 (09/10/2022 11:00 AM) Visual impairment: 1 (09/10/2022 11:00 AM) Impaired functional mobility: 1 (09/10/2022 11:00 AM) Environmental hazards: 1 (09/10/2022 11:00 AM) Poly Pharmacy (4 or more prescriptions - any type): 1 (09/10/2022 11:00 AM) Pain affecting level of function: 1 (09/10/2022 11:00 AM) Cognitive impairment: 0 (09/10/2022 11:00 AM) Score - a score of 4 or more is considered at risk for fallin (09/10/2022 11:00 AM) Home Safety Does member identify any safety issues related to entering or exiting their home? No Does the patient need a wheelchair ramp to access the home? No Snow/ice removal assistance available? Yes Is there adequate lighting? Yes Are there railings on stairs? N/A Do sidewalks appear to be in good repair? Yes Does member identify any safety issues related to the interior of their home? No If durable medical equipment is used, halls and doorways easy to navigate? Yes Are there trip hazards in the home? No Are there working smoke detectors/CO2 detectors? Yes Is a health condition present or an air quality concern that an air conditioner or other coolingdevice will help? N/A Do stairs in the home have railings? No Is there a medical alert or phone near patient? Yes Are walkways clear and well lit? Yes Does member identify any safety issues related to utilizing or accessing the bathroom in their home? No Does bathroom have grab bars needed? No The patient reports needing help getting on and off the toilet? No Does the patient report needing help bathing? Yes Are there any other identified issues/needs? No. If yes specify: Plan: Plan for the patient telemed follow up as per schedule Follow Up: Patient encouraged to call the intake phone number for all urgent but not emergent issues. Scheduled to follow up with patient in PRN. [facility]er 10/28/2022 10:30 AM * Taylor Ruiz PA-C - 10/28/2022 10:30 AM EDT [facility] Provider Telemedicine Visit Date: 10/28/2022 Time: 10:58 AM Assessment/Plan: 1. COPD, group D, by GOLD 2017 classification ([facility]) Maintaining on 3 liters of oxygen Continue inhalers 2. Chronic respiratory failure with hypoxia, on home O2 therapy ([facility]) Maintaining on 3 liters of oxygen Follow up plan: Patient doing well without complaints today. Will send rescue kit for him to have on hand. Advised him if he starts it to complete entire course of antibiotics and reach out to eithermyself or PCP if S/S change. A total of 35 minutes was spent face to face via video-based telemedicine. Subjective Patient location: HOME. I was not in a hospital or clinic location. After connecting through televideo, patient was verified with two unique identifiers. Patient (or authorized legal account representative) was then informed that this was a Telemedicine visit and being conducted confidentially over secure lines. Methods to assure confidentiality were taken. Patient acknowledged consent and understanding of privacy and security of the Telemedicine visit. The patient agreed to participate. Reason for Visit: Follow-Up Current Concerns: Jer Abreu Jr. is a 81 year old male seen today for a [facility] Telemedicine Provider Visit. Date of last known acute care visit: 09/10/22 with myself Reason for last known acute care visit: Patient admitted from 07/02/22 - 07/07/22 with respiratory failure and multifocal pneumonia. He was previously admitted on 06/20/22 and treated for pseudomonal pneumonia. The patient was discharged withLevaquin and Flagyl to complete as outpatient. He has baseline anemia and chronic respiratory secondary to COPD. He maintains on chronic oxygen therapy. He has a history of C.diff. He was scheduled to see ID but missed the appointments. PCP office sent Rx for Sheela. I last saw the patient on 09/10/22 and he was doing well without acute complaints. Today's concerns are: Patient states he is doing well. He occasionally gets sinus congestion and right ear pain. He has been using the Doxycycline for a few days them stopping (advised him if he starts it to complete course). He has no change in cough or sputum production. Sputum is clear in color. He still has significant XIAO but it is unchanged. He is maintaining on 3 liters of oxygen. Appetite is good. Recent weight was 114 lbs. He has had some loose bowels over the last week while taking the Doxycyline. He continues to take oral vancomycin. Stools have been formed the last couple days. No abdominal pain or change in color of stool. ROS: See HPI Objective Physical Exam: BP 110/62 (BP Site: Left Arm, BP Position: Sitting, BP Cuff Size: Regular) | Pulse 64 | Temp 36.7 C (98.1 F) | Resp 18 | Wt 51.7 kg (114 lb) | SpO2 99% | BMI 18.40 kg/m | BSA 1.55 m Previous Wts: Wt Readings from Last 5 Encounters: 02/10/22 46.7 kg (103 lb) 01/28/22 46.3 kg (102 lb) 12/16/21 46.7 kg (103 lb) 10/29/21 48.6 kg (107 lb 3.2 oz) 09/23/20 59.4 kg (131 lb) Previous BPs: BP Readings from Last 5 Encounters: 09/10/22 110/80 08/20/22 102/52 07/16/22 120/58 02/10/22 98/54 01/28/22 92/60 Physical Exam Constitutional: General: He is not in acute distress. HENT: Head: Normocephalic and atraumatic. Mouth/Throat: Pharynx: Oropharynx is clear. Eyes: Extraocular Movements: Extraocular movements intact. Conjunctiva/sclera: Conjunctivae normal. Cardiovascular: Rate and Rhythm: Normal rate and regular rhythm. Pulmonary: Effort: Pulmonary effort is normal. No respiratory distress. Comments: Diffusely decreased breath sounds Musculoskeletal: Cervical back: Normal range of motion. Neurological: General: No focal deficit present. Mental [...] 3 LPM continuous oxygen with exertion DME: [facility] Indications: Inc to 4LPM with ambulation/exertion [...] Ellipta 100-62.5-25 MCG/ACT Aerosol Powder Breath Activated (Qzxmtgsddel-Vrbeoypgxiwc-Nsbmklluuh) Inhale 1 Puff by mouth in the morning. 60 Blister Dosing Unit 3 Potassium Chloride ER 20 MEQ Oral Tablet Extended Release TAKE 1 TABLET BY MOUTH EVERY DAY IN THE MORNING 90 Tablet 3 No current facility-administered medications for this visit. Mobility Evaluation: MACH10 Assessment: Assistive Devices Used in the Home: NONE Recent Falls: Falls in the last 6 months: No SDoH: DME (Durable Medical Equipment) needs Routine Transportation Urgent Transportation Social Isolation Taylor Ruiz PA-C 10:58 AM *Communication sent to PCP (via [facility]ofax if [facility]), Population Health Care Team members, relevant Specialty Care Physicians* documented in this encounter Plan of Treatment Upcoming Encounters Date Type Specialty Care Team Description 12/23/2022 Telemedicine [facility] Taylor Schwartz PA-C [address] [place] [address] Radha Patten, Community Health Hop Strainer [address] [place] [address] [place] [address] Health Maintenance Due Date Last Done Comments Alpha-1 Antitrypsin 1958 Hepatitis C Screening 1958 *ADVANCE DIRECTIVE NOT ON FILE 09/25/2020 Depression Screening, Annual for Pts 12 and Over 11/12/2020 11/13/2019 COVID-19 Vaccine (3 - Booster for Moderna series) 03/21/2021 01/24/2021, 10/07/2020 Influenza Vaccine (FLU shot) (Season Ended) 2023 02/25/2021, 04/12/2019, 04/12/2019, Additional history exists O2 ASSESSMENT COMPLETED IN PAST YEAR FOR COPD 09/11/2023 09/10/2022 DTaP,Tdap,and Td Vaccines (2 - Td or Tdap) 10/21/2027 10/20/2017 LUNG CANCER SCREENING - USE SMARTSET [id number] Completed 06/23/2017 Pneumococcal Vaccine: 65+ Years Completed [...] as of this encounter Visit Diagnoses Diagnosis COPD, group D, by GOLD 2017 classification (HCC)- Primary Chronic respiratory failure with hypoxia, on home O2 therapy (HCC) documented in this encounter Care Teams Cytotechnologist Supervisor Relationship Specialty Start Date End Date Kavya Dillard CRNP [address] [place] [address] PCP - General Nurse Practitioner 12/31/20 documented as of this encounter"
--- OUTSIDE RECORDS SUMMARY | 2023-04-08 22:59 | External Medical Summary | Summary of Care ---
Author Name Unknown Organization [facility] Address [address] [place] [address] Phone [phone] Care Team Providers Care Health And Physical Education Professor Name Role Phone Kavya Dillardlle GARRETT Primary Care Provider Reason for Visit * Reason Onset Date Comments Appointment 01/20/2023 Encounter Details Date Type Department Care Team Description 01/20/2023 Telephone [facility], [place] [address] [place] [address] Taylor Schwartz PA-Leonila [address] [place] [address] Appointment (/) Allergies No known active allergiesdocumented as of this encounter (statuses as of 01/20/2023) Medications Medication Sig Dispensed Refills Start Date [...] 3 LPM continuous oxygen with exertion DME: [facility] Indications: Inc to 4LPM with ambulation/exert [...] COPD, group D, by GOLD 2017 classification ([facility]) INHALE BY MOUTH 2 PUFFS [...] FECAL TRANSPLANT. 90 Capsule 1 01/04/2023 Active documented as of this encounter (statuses as of 01/20/2023) Active Problems Problem Noted Date Severe protein-calorie [...] as of this encounter (statuses as of 01/20/2023) Resolved Problems Problem Noted Date Resolved Date [...] as of this encounter (statuses as of 01/20/2023) Immunizations Name Administration Dates Next Due Pneumococcal [...] * Telephone Encounter - JAH Guzman - 01/20/2023 9:10 AM EDT LMOM for pt to confirm return [facility] telemed for 02/02 at 1pm documented in this encounter Plan of Treatment Upcoming Encounters Date Type Specialty Care Team Description 02/02/2023 Telemedicine [facility] Taylor Schwartz PA-C [address] [facility] [place] [address] Radha Patten, Community Health Mental Health Director [address] [place] [address] [place] [address] Health Maintenance Due Date [...] 10/20/2017 LUNG CANCER SCREENING - USE SMARTSET [id number] Completed 06/23/2017 Pneumococcal Vaccine: 65+ Years Completed [...] filedocumented as of this encounter Care Teams Health And Physical Education Professor Relationship Specialty Start Date End Date Kavya Dillard CRNP [address] [place] [address] PCP - General Nurse Practitioner 12/31/20 documented as of this encounter
--- OUTSIDE RECORDS SUMMARY | 2023-04-08 22:59 | External Medical Summary | Summary of Care ---
Author Name Unknown Organization [facility] Address [address] [place] [address] Phone [phone] Care Team Providers Care Gse Mechanic Name Role Phone Kavya Dillard GARRETT Primary Care Provider Reason for Visit * Reason Onset Date Comments Lung Cancer Screening Outreach 01/22/2023 Encounter Details Date Type Department Care Team Description 01/22/2023 Telephone Thoracic Surg [facility] [address] [place] [address] Cha Rothman, RN Lung Cancer Screening Outreach Allergies No known active allergiesdocumented as of [...] [facility] Indications: Inc to 4LPM with ambulation/exe rtion 1 Each 0 1 Active Saccharomyces boulardii 250 MG Oral Capsule (Florastor) Take 1 Capsule by mouth in the morning. Florastor . 0 Active Famotidine 20 MG Oral Tablet (Pepcid) Take by mouth 1 Tablet as needed before bedtime for Heartburn. 30 Tablet 11 2 Active Folic Acid 1 MG Oral TabletIndications: Chronic respiratory failure with hypoxia, on home O2 therapy ([facility]) Take 1 Tablet (1 mg) [...] s:COPD, group D, by GOLD 2017 classification ([facility]) INHALE BY MOUTH 2 PUFFS [...] FECAL TRANSPLANT. 90 Capsule 1 3 Active Incruse Ellipta 62.5 MCG/ACT Inhalation [...] encounter Miscellaneous Notes * Telephone Encounter - Cha Rothman RN - 01/22/2023 9:56 AM EDT Lung Cancer Screening Program (LCSP) High Risk Outreach Call Summary 01/22/2023 Through advanced analysis/trending of this patient's history, they have been identified to have a positive Lung flag and are at a higher risk for lung cancer. This advanced analysis estimates the patient's risk for lung cancer. It only indicates that the patient's chances to have this condition are higher compared to most people. It does not indicate that the patient has this condition, but it is highly recommended the patient have a low dose CT screening for further evaluation. The patient does not qualify because Age not 50-77 for Medicare Insurance - no follow up required. Cha Rothman RN documented in this encounter Plan of Treatment Upcoming Encounters Date Type Specialty Care Team Description 02/02/2023 Telemedicine [facility] Taylor Schwartz PA-C [address] [place] [address] Radha Patten, Community Health Genomics Scientist [address] [place] [address] [place] [address] Health Maintenance Due Date [...] 10/20/2017 LUNG CANCER SCREENING - USE SMARTSET [id number] Completed 06/23/2017 Pneumococcal Vaccine: 65+ Years Completed [...] filedocumented as of this encounter Care Teams Gse Mechanic Relationship Specialty Start Date End Date Kavya Dillard CRNP [address] [place] [address] PCP - General Nurse Practitioner 12/31/20 documented as of this encounter
--- OUTSIDE RECORDS SUMMARY | 2023-04-08 22:59 | External Medical Summary | Summary of Care ---
Author Name Unknown Organization [facility] Address [address] [place] [address] Phone [phone] Care Team Providers Care Four H Club Agent Name Role Phone Kavya Dillard GARRETT Primary Care Provider Reason for Visit * Reason Onset Date Comments case management 11/10/2022 Encounter Details Date Type Department Care Team Description 11/10/2022 Training Specialist Telephone Family Practice [facility] [address] [place], [place] [id number] Kayli Horton, utilization management um nurse Allergies No known active allergiesdocumented as of this encounter (statuses as of 11/10/2022) Medications Medication Sig Dispensed Refills Start Date [...] LPM continuous oxygen with exertion DME: [facility] Indications: Inc to 4LPM with ambulation/exert [...] D, by GOLD 2017 classification ([facility]) INHALE BY MOUTH 2 PUFFS EVERY 4 [...] as of this encounter (statuses as of 11/10/2022) Active Problems Problem Noted Date Severe protein-calorie [...] as of this encounter (statuses as of 11/10/2022) Resolved Problems Problem Noted Date Resolved Date History of Pseudomonas pneumonia 09/23/2020 12/09/2021 Severe chronic obstructive pulmonary disease 09/23/2018 Overview: severe by ATS criteria. significant response after bronchodilator COPD exacerbation 10/16/2016 05/03/2017 Inflammation of sacroiliac joint 04/24/2005 03/12/2017 Other abnormal glucose 04/23/2005 11/27/201 7 Overview: glucose 156 Tobacco use disorder 04/22/2005 10/20/2017 SPRAIN SACROILIAC 03/19/2005 05/03/2017 Other specified disorders of rotator cuff syndrome of shoulder and allied disorders 05/23/2004 05/03/2017 Overview: right shoulder Other disorders of vitreous 06/07 Loss of teeth due to trauma, extraction, or periodontal disease 10/27/2017 documented as of this encounter (statuses as of 11/10/2022) Immunizations Name Administration Dates Next Due Pneumococcal [...] Telephone Encounter - Kayli Horton RN - 11/10/2022 9:54 AM EDT 1. Follow-up Routine 2. Attempted Phone Call First Attempt 3. Call Outcome Left Voicemail/Message 4. Plan To attempt another outreach documented in this encounter Plan of Treatment Upcoming Encounters Date Type Specialty Care Team Description 12/23/2022 Telemedicine [facility] Tyalor Schwartz PA-C [address] [place] [address] Radha Patten, Community Health Pressed Or Blown Glass Worker [address] [place] [address] [place] [phone] Health Maintenance Due Date Last Done Comments [...] 10/20/2017 LUNG CANCER SCREENING - USE SMARTSET [id number] Completed 06/23/2017 Pneumococcal Vaccine: 65+ Years Completed [...] filedocumented as of this encounter Care Teams Four H Club Agent Relationship Specialty Start Date End Date Kavya Dillard CRNP [address] [place] [address] PCP - General Nurse Practitioner 12/31/20 documented as of this encounter
--- OUTSIDE RECORDS SUMMARY | 2023-04-08 22:59 | External Medical Summary | Summary of Care ---
Author Name Unknown Organization [facility] Address [address] [place] [address] Phone [phone] Care Team Providers Care Photographs Curator Name Role Phone Kavya Dillard Yoanna TUCKER Primary Care Provider Encounter Details Date Type Department Care Team Description 01/21/2023 External Data Patient Risk Medial Allergies No known active allergiesdocumented as of this encounter (statuses as of 01/21/2023) Medications Medication Sig Dispensed Refills Start Date [...] 3 LPM continuous oxygen with exertion DME: [facility] Indications: Inc to 4LPM with ambulation/exert ion [...] failure with hypoxia, on home O2 therapy ([facility]) Take 1 Tablet (1 mg) by mouth [...] group D, by GOLD 2017 classification ([facility]) INHALE BY MOUTH 2 PUFFS EVERY [...] as of this encounter (statuses as of 01/21/2023) Active Problems Problem Noted Date Severe protein-calorie [...] as of this encounter (statuses as of 01/21/2023) Resolved Problems Problem Noted Date Resolved Date [...] as of this encounter (statuses as of 01/21/2023) Immunizations Name Administration Dates Next Due Pneumococcal [...] [facility] Taylor Schwartz PA-C [address] [place] [address] Radha Patten, Community Health Assembler Knife [address] [place] [address] [place] [address] Health Maintenance Due Date [...] 10/20/2017 LUNG CANCER SCREENING - USE SMARTSET [id number] Completed 06/23/2017 Pneumococcal Vaccine: 65+ Years Completed [...] filedocumented as of this encounter Care Teams Photographs Curator Relationship Specialty Start Date End Date Kavya Dillard CRNP [address] [place] [address] PCP - General Nurse Practitioner 12/31/20 documented as of this encounter
--- OUTSIDE RECORDS SUMMARY | 2023-04-08 22:59 | External Medical Summary | Summary of Care ---
Author Name Unknown Organization [facility] Address [address] [place] [address] Phone [phone] Care Team Providers Care Phlebotomy Technologist Name Role Phone Kavya Dillard Primary Care Provider Reason for Visit * Reason Comments eRx-Medication Refill Encounter Details Date Type Department Care Team Description 01/15/2023 Refill [facility] Practice [facility] [address] [facility] [address] Kavya Dillard CRNP [address] [place] [address] Stage 3 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 ([facility]) Allergies No known active allergiesdocumented as of this encounter (statuses as of 01/15/2023) Medications Medication Sig Dispensed Refills Start Date [...] 3 LPM continuous oxygen with exertion DME: [facility] Indications: Inc to 4LPM with ambulation/exert ion [...] group D, by GOLD 2017 classification ([facility]) INHALE BY MOUTH 2 PUFFS [...] as of this encounter (statuses as of 01/15/2023) Active Problems Problem Noted Date Severe protein-calorie [...] as of this encounter (statuses as of 01/15/2023) Resolved Problems Problem Noted Date Resolved Date [...] as of this encounter (statuses as of 01/15/2023) Immunizations Name Administration Dates Next Due Pneumococcal [...] encounter Miscellaneous Notes * Telephone Encounter - Teri Rod [facility] - 01/15/2023 4:35 PM EDTRefused Prescriptions: Disp Refills Ipratropium Manning 0.02 % Inhalation Solu*250 mL 4 Sig: USE 1VIAL IN NEBULIZER 3 TIMES DAILY FOR SEVERE CHRONIC OBSTRUCTIVE PULMONARY DISEASERefused By: TERI ROD for Refusal: Patient Should Contact Provider Keagan for Refusal Comment: medd/c from med list december 2021 documented in this encounter Plan of Treatment Upcoming Encounters Date Type Specialty Care Team Description 02/02/2023 Telemedicine [facility] Taylor Schwartz PA-C [address] [place] [address] Radha Patten, Community Health Oil Heaterman [address] [place] [address] [place] [phone] Health Maintenance Due Date Last Done Comments [...] 10/20/2017 LUNG CANCER SCREENING - USE SMARTSET [id number] Completed 06/23/2017 Pneumococcal Vaccine: 65+ Years Completed [...] (HCC) documented in this encounter Care Teams Phlebotomy Technologist Relationship Specialty Start Date End Date Kavya Dillard CRNP [address] [place] [address] PCP - General Nurse Practitioner 12/31/20 documented as of this encounter
--- OUTSIDE RECORDS SUMMARY | 2023-04-08 22:59 | External Medical Summary | Summary of Care ---
Author Name Unknown Organization [facility] Address [address] [place] [address] Phone [phone] Care Team Providers Care Punch Machine Hand Name Role Phone Kavya Dillard GARRETT Primary Care Provider Reason for Visit * Reason Onset Date Comments case management 11/12/2022 Encounter Details Date Type Department Care Team Description 11/12/2022 [facility] Purse Seine Telephone Family Practice [facility] [address] [place], [place] [phone] Kayli Horton, hazardous waste management specialist Allergies No known active allergiesdocumented as of this encounter (statuses as of 11/12/2022) Medications Medication Sig Dispensed Refills Start Date [...] 3 LPM continuous oxygen with exertion DME: [facility] Indications: Inc to 4LPM with ambulation/exert [...] group D, by GOLD 2017 classification ([facility]) INHALE BY MOUTH 2 PUFFS EVERY 4 [...] as of this encounter (statuses as of 11/12/2022) Active Problems Problem Noted Date Severe protein-calorie [...] as of this encounter (statuses as of 11/12/2022) Resolved Problems Problem Noted Date Resolved Date [...] as of this encounter (statuses as of 11/12/2022) Immunizations Name Administration Dates Next Due Pneumococcal [...] Telephone Encounter - Kayli Horton RN - 11/12/2022 3:57 PM EDT 1. Follow-up Routine 2. Attempted Phone Call Second Attempt 3. Call Outcome Left Voicemail/Message 4. Plan To attempt another outreach documented in this encounter Plan of Treatment Upcoming Encounters Date Type Specialty Care Team Description 12/23/2022 Telemedicine [facility] Taylor Schwartz PA-C [address] [place] [address] Radha Patten, Community Health Passenger Conductor [address] [place] [address] [place] [phone] Health Maintenance Due Date Last Done Comments [...] 10/20/2017 LUNG CANCER SCREENING - USE SMARTSET [id number] Completed 06/23/2017 Pneumococcal Vaccine: 65+ Years Completed [...] filedocumented as of this encounter Care Teams Punch Machine Hand Relationship Specialty Start Date End Date Kavya Dillard CRNP [address] [place] [address] PCP - General Nurse Practitioner 12/31/20 documented as of this encounter
--- OUTSIDE RECORDS SUMMARY | 2023-04-08 22:59 | External Medical Summary | Summary of Care ---
Author Name Unknown Organization [facility] Address [address] [place] [address] Phone [phone] Care Team Providers Care World History Teacher Name Role Phone Kavya Dillardlle GARRETT Primary Care Provider Reason for Visit * Reason Onset Date Comments Appointment 12/14/2022 Encounter Details Date Type Department Care Team Description 12/14/2022 Telephone [facility] [place] [place] [address] [place], [place] [phone] Services, Scheduling [address] [place] [address] Appointment (/) Allergies No known active allergiesdocumented as of this encounter (statuses as of 12/14/2022) Medications Medication Sig Dispensed Refills Start Date [...] LPM continuous oxygen with exertion DME: [facility] Indications: Inc to 4LPM with ambulation/exert [...] COPD, group D, by GOLD 2017 classification ([facility] [...] as of this encounter (statuses as of 12/14/2022) Active Problems Problem Noted Date Severe protein-calorie [...] as of this encounter (statuses as of 12/14/2022) Resolved Problems Problem Noted Date Resolved Date [...] as of this encounter (statuses as of 12/14/2022) Immunizations Name Administration Dates Next Due Pneumococcal [...] * Telephone Encounter - JAH Guzman - 12/14/2022 5:26 PM EDT LMOM for pt to confirm return kala telemed for 12/23 at 3pm documented in this encounter Plan of Treatment Upcoming Encounters Date Type Specialty Care Team Description 12/23/2022 Telemedicine [facility] Taylor Schwartz PA-Leonila [address] [place] [place] [address] Radha Patten, Community Health Global Marketing Manager [address] [place] [address] [place] [address] Health Maintenance Due Date [...] 10/20/2017 LUNG CANCER SCREENING - USE SMARTSET 25340 Completed 06/23/2017 Pneumococcal Vaccine: 65+ Years Completed [...] filedocumented as of this encounter Care Teams World History Teacher Relationship Specialty Start Date End Date Kavya Dillard CRNP [address] [place] [address] PCP - General Nurse Practitioner 12/31/20 documented as of this encounter
--- OUTSIDE RECORDS SUMMARY | 2023-04-08 22:59 | External Medical Summary | Summary of Care ---
Author Name Unknown Organization [facility] Address [address] [place] [address] Phone [phone] Care Team Providers Care Patternmaker Helper Name Role Phone GilmaKavya Yoanna TUCKER Primary Care Provider Reason for Visit * Reason Comments eRx-Medication Refill Encounter Details Date Type Department Care Team Description 01/01/2023 Refill Gastroenterology, [facility] [address] [place] [address] Nisreen Jennings CR[facility] [address] [facility] [address] Allergies No known active allergiesdocumented as of this encounter (statuses as of 01/04/2023) Medications Medication Sig Dispensed Refills Start Date [...] LPM continuous oxygen with exertion DME: [facility] Indications: Inc to 4LPM with ambulation/exer tion [...] :COPD, group D, by GOLD 2017 classification ([facility]) INHALE BY MOUTH 2 PUFFS EVERY 4 HOURS NEEDED FOR WHEEZING. BRAND NECESSARY 54 g 3 3 Active Triamcinolone Acetonide 55 MCG/ACT Nasal Aerosol (Nasacort Allergy 24HR) Administer 2 Sprays into each nostril in the morning. 1 Each 1 3 Active Incruse Ellipta 62.5 MCG/ACT Inhalation Aerosol Powder Breath Activated Inhale 1 Puff by mouth daily. 30 Each 3 3 Active Trelegy Ellipta 100-62.5-25 MCG/ACT Aerosol Powder Breath Activated (Fluticasone-Umecli dinium-Vilanterol) Inhale 1 Puff by mouth in the morning. 60 Blister Dosing Unit 3 3 Active Potassium Chloride ER 20 MEQ [...] FECAL TRANSPLANT. 90 Capsule 1 3 Active Vancomycin HCl 125 MG Oral Capsule (Vancocin) 1 CAP DAILY UNTIL FECAL TRANSPLANT. 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 * Telephone Encounter - GARRETT Smith - 01/04/2023 11:14 AM EDTSigned Prescriptions: Disp Refills Vancomycin HCl 125 MG Oral Capsule (Vancoc*90 Cap*1 Si CAP DAILY UNTIL FECAL TRANSPLANT. Authorizing Provider: NISRENE JENNINGS * Telephone Encounter - Lory Ramirez RN - 01/01/2023 11:29 AM EDTPending Prescriptions: Disp Refills Vancomycin HCl 125 MG Oral Capsule [Pharma*90 Cap*1 Si CAP DAILY UNTIL FECAL TRANSPLANT. * Telephone Encounter - Lory Ramirez RN - 01/01/2023 11:27 AM EDT Nisreen please review. Would you like pt to come in for an OV? * Telephone Encounter - Ashli matute [facility] - 01/01/2023 3:50 AM EDTPending Prescriptions: Disp Refills Vancomycin HCl 125 MG Oral Capsule [Pharma*90 Cap*1 Si CAP DAILY UNTIL FECAL TRANSPLANT. * Telephone Encounter - Ashli matute [facility] - 01/01/2023 3:50 AM EDT Did you pend patient's preferred pharmacy and medication before forwarding?yes Pharmacy: [id number] [address] [facility] Pending Prescriptions: Disp Refills Vancomycin HCl 125 MG Oral Capsule (Vanco*90 Cap*1 Si CAP DAILY UNTIL FECAL TRANSPLANT. Last Visit: 02/10/2022 (in office), 12/17/2021 (telemedicine) Next Visit: Visit date not found If no future appointments scheduled, and last appointment is greater than a year ago, please schedule patient for a follow-up appointment Last date the medication was ordered: 06/29/2022 Is this request for a controlled substance?No Urine Drug Screen:No results found for this or any previous visit. Patient Phone Numbers Labs: Lab Results Component Value Date/Time CREAT 1.0 07/08/2022 05:30 AM CREAT 0.81 08/30/2021 12:00 AM CREAT 1.1 06/18/2017 09:59 AM POTASSIUM 3.9 07/08/2022 05:30 AM POTASSIUM 3.2 (A) 08/30/2021 12:00 AM POTASSIUM 3.8 06/18/2017 09:59 AM TSH 0.77 12/26/2020 04:03 PM TSH 1.06 08/30/2006 11:56 AM LDLCALC 74 02/17/2008 03:12 PM ALT 15 02/06/2022 04:07 PM ALT 20 05/17/2017 12:00 AM ALT 23 02/17/2008 03:12 PM HGBA1C 5.7 08/30/2006 11:56 AM documented in this encounter Plan of Treatment Upcoming Encounters Date Type Specialty Care Team Description 02/02/2023 Telemedicine [facility] Taylor Schwartz PA-C [address] [place] [address] Radha Patten, Community Health [address] [place] [phone] Health Maintenance Due Date Last Done Comments [...] 10/20/2017 LUNG CANCER SCREENING - USE SMARTSET 66189 Completed 06/23/2017 Pneumococcal Vaccine: 65+ Years Completed [...] filedocumented as of this encounter Care Teams Patternmaker Helper Relationship Specialty Start Date End Date Kavya Dillard CRNP [address] [place] [address] PCP - General Nurse Practitioner 12/31/20 documented as of this encounter
--- OUTSIDE RECORDS SUMMARY | 2023-04-08 23:00 | External Medical Summary | Summary of Care ---
Author Name Unknown Organization [facility] Address [address] [place] [address] Phone [phone] Care Team Providers Care Hiv Prevention Specialist Name Role Phone Kavya Dillard GARRETT Primary Care Provider Reason for Visit * Reason Comments case management Encounter Details Date Type Department Care Team Description 10/09/2022 [facility] [address] [place] [address] Kayli Horton, RN Medical home patient encounter* Allergies No known active allergiesdocumented as of this encounter (statuses as of 10/09/2022) Medications Medication Sig Dispensed Refills Start Date [...] 3 LPM continuous oxygen with exertion DME: [facility] Indications: Inc to 4LPM with [...] THE MORNING 90 Tablet 3 09/22/2022 Active documented as of this encounter (statuses as of 10/09/2022) Active Problems Problem Noted Date Severe protein-calorie [...] as of this encounter (statuses as of 10/09/2022) Resolved Problems Problem Noted Date Resolved Date [...] as of this encounter (statuses as of 10/09/2022) Immunizations Name Administration Dates Next Due Pneumococcal [...] Progress Notes * Kayli Horton RN - 10/09/2022 4:06 PM EDT GLADIS Progress note S: Patient called in, wanted to verify upcoming telehealth visit with Taylor Ruiz. He reports he is doing okay, breathing is "the same" Using trelegy and nebulizer. Denies falls. Reports has had an increase of diarrhea, feels this was increased after taking doxy. States appetite is fair and taht he is eating and drinking ok. Was able to sit outside last week when the weather was nice. Is worried about getting pneumonia again, so doesn't like to leave the house. O: phone call follow up A: pleasant, alert and oriented P: Confirmed appt date/time. Remind to reach out with any exacerbating symptoms. documented in this encounter Plan of Treatment Upcoming Encounters Date Type Specialty Care Team Description 10/21/2022 Telemedicine [facility] Taylor Schwartz PA-C [address] [place] [address] Health Maintenance Due Date Last Done Comments Alpha-1 Antitrypsin 1958 Hepatitis C Screening 1958 Zoster Vaccines (1 of 2) 1992 *ADVANCE DIRECTIVE NOT ON FILE 09/25/2020 Depression [...] 10/20/2017 LUNG CANCER SCREENING - USE SMARTSET 94754 Completed 06/23/2017 Pneumococcal Vaccine: 65+ Years Completed 10/20/2017, 04/27/2017 GARDASIL-HPV IMMUNIZATION SERIES Aged Out No longer [...] examination documented in this encounter Care Teams Hiv Prevention Specialist Relationship Specialty Start Date End Date Kavya Dillard CRNP [address] [place] [address] PCP - General Nurse Practitioner 12/31/20 documented as of this encounter
--- OUTSIDE RECORDS SUMMARY | 2023-04-08 23:00 | External Medical Summary | Summary of Care ---
Author Name Unknown Organization [facility] Address [address] [place] [address] Phone [phone] Care Team Providers Care Digital Pre Press Operator Name Role Phone Kavya Dillardlle GARRETT Primary Care Provider Reason for Visit * Reason Onset Date Comments Appointment 09/04/2022 Encounter Details Date Type Department Care Team Description 09/04/2022 Telephone [facility] [place] [place] [address] [place] [address] Services, Scheduling [address] [place] [address] Appointment (/) Allergies No known active allergiesdocumented as of this encounter (statuses as of 09/04/2022) Medications Medication Sig Dispensed Refills Start Date [...] 3 LPM continuous oxygen with exertion DME: [facility] Indications: Inc to 4LPM with ambulation/exert ion 1 Each 0 04/01/2021 Active Fluticasone-Salmetero l 250-50 MCG/DOSE Inhalation Aerosol Powder Breath Activated (Advair Diskus)Indications:SO B (shortness of breath) Inhale by mouth 1 Puff in the morning AND 1 Puff before bedtime. Brand necessary. 3 Each 3 09/10/2021 Active Saccharomyces boulardii 250 MG Oral Capsule (Florastor) Take 1 Capsule by mouth in the morning. Florastor . 0 Active Famotidine 20 MG Oral Tablet (Pepcid) Take by mouth 1 Tablet as needed before bedtime for Heartburn. 30 Tablet 11 02/24/2022 Active Potassium Chloride ER 20 MEQ Oral Tablet Extended Release Take by mouth 1 Tablet in the morning. 30 Tablet 3 03/20/2022 Active Folic Acid 1 MG Oral TabletIndications:Chr [...] Solution (Xopenex) 3 mL. 0 09/27/2021 Active Ipratropium-Albuterol 20-100 MCG/ACT Inhalation Aerosol Solution (Combivent Respimat) FOUR TIMES DAILY 0 12/05/2021 Active guaiFENesin 200 MG Oral Tablet TAKE 1 TABLET BY MOUTH EVERY 6 HOURS NEEDED FOR CONGESTION FOR 4 DAYS 0 06/26/2022 Active Ventolin HFA 108 (90 Base) MCG/ACT Inhalation Aerosol SolutionIndications:C OPD, group D, by GOLD 2017 classification ([facility]) INHALE BY MOUTH 2 PUFFS EVERY 4 HOURS NEEDED FOR WHEEZING. BRAND NECESSARY 54 g 3 07/22/2022 Active Fluticasone-Salmetero l 250-50 MCG/ACT Inhalation Aerosol Powder Breath Activated (Wixela Inhub) Inhale 1 Puff by mouth in the morning and 1 Puff before bedtime. 60 Each 12 08/19/2022 Active Triamcinolone Acetonide 55 MCG/ACT Nasal Aerosol (Nasacort Allergy 24HR) Administer 2 Sprays into each nostril in the morning. 1 Each 1 08/20/2022 Active Incruse Ellipta 62.5 MCG/ACT Inhalation Aerosol Powder Breath Activated Inhale 1 Puff by mouth daily. 30 Each 3 08/25/2022 Active documented as of this encounter (statuses as of 09/04/2022) Active Problems Problem Noted Date Severe protein-calorie [...] as of this encounter (statuses as of 09/04/2022) Resolved Problems Problem Noted Date Resolved Date [...] as of this encounter (statuses as of 09/04/2022) Immunizations Name Administration Dates Next Due Pneumococcal [...] * Telephone Encounter - JAH Guzman - 09/04/2022 11:01 AM EDT LMOM for pt to confirm return kaco telemed for 6 at 3pm documented in this encounter Plan of Treatment Upcoming Encounters Date Type Specialty Care Team Description 09/10/2022 Telemedicine [facility] Taylor Schwartz PA-C [address] [place] [address] Gaye Jerez, Community Health Development Disability Specialist [address] [place] [address] Health Maintenance Due Date Last Done Comments Alpha-1 Antitrypsin 1958 Hepatitis C Screening 1958 Zoster Vaccines (1 of 2) 1992 *ADVANCE DIRECTIVE NOT ON FILE 09/25/2020 Depression Screening, Annual for Pts 12 and Over 11/12/2020 11/13/2019 COVID-19 Vaccine (3 - Booster for Moderna series) 03/21/2021 01/24/2021, 10/07/2020 Influenza Vaccine (FLU shot) (#1) 2022 02/25/2021, 04/12/2019, 04/12/2019, Additional history exists O2 ASSESSMENT COMPLETED IN PAST YEAR FOR COPD 08/21/2023 08/20/2022 DTaP,Tdap,and Td Vaccines (2 - Td or Tdap) 10/21/2027 10/20/2017 LUNG CANCER SCREENING - USE SMARTSET [id number] Completed 06/23/2017 Pneumococcal Vaccine: 65+ Years Completed [...] filedocumented as of this encounter Care Teams Digital Pre Press Operator Relationship Specialty Start Date End Date Kavya Dillard CRNP [address] [place] [address] PCP - General Nurse Practitioner 12/31/20 documented as of this encounter
--- OUTSIDE RECORDS SUMMARY | 2023-04-08 23:00 | External Medical Summary | Summary of Care ---
Author Name Unknown Organization [facility] Address [address] [place] [address] Phone [phone] Care Team Providers Care Stores Assistant Name Role Phone Kavya Dillardlle GARRETT Primary Care Provider Reason for Visit * Reason Onset Date Comments Appointment 10/27/2022 Encounter Details Date Type Department Care Team Description 10/27/2022 Telephone [facility] [address] [place] [address] Services, Scheduling [address] [place] [address] Appointment (///) Allergies No known active allergiesdocumented as of this encounter (statuses as of 10/27/2022) Medications Medication Sig Dispensed Refills Start Date [...] 3 LPM continuous oxygen with exertion DME: [facility] Indications: Inc to 4LPM with ambulation/exert [...] D, by GOLD 2017 classification ([facility]) INHALE BY MOUTH 2 PUFFS EVERY [...] as of this encounter (statuses as of 10/27/2022) Active Problems Problem Noted Date Severe protein-calorie [...] as of this encounter (statuses as of 10/27/2022) Resolved Problems Problem Noted Date Resolved Date [...] as of this encounter (statuses as of 10/27/2022) Immunizations Name Administration Dates Next Due Pneumococcal [...] Miscellaneous Notes * Telephone Encounter - JAH Sullivan - 10/27/2022 5:16 PM EDT Rcvd call from pt's she advised they are good with appt tomorrow at 10:00am documented in this encounter Plan of Treatment Upcoming Encounters Date Type Specialty Care Team Description 10/28/2022 Telemedicine [facility] Taylor Schwartz PA-Leonila [address] [place] [address] Radha Patten, Community Health Drop Board Worker [address] [place] [address] [place] [address] Health Maintenance Due Date Last Done Comments [...] 10/20/2017 LUNG CANCER SCREENING - USE SMARTSET 12098 Completed 06/23/2017 Pneumococcal Vaccine: 65+ Years Completed [...] filedocumented as of this encounter Care Teams Stores Assistant Relationship Specialty Start Date End Date Kavya Dillard CRNP [address] [place] [address] PCP - General Nurse Practitioner 12/31/20 documented as of this encounter
--- OUTSIDE RECORDS SUMMARY | 2023-04-08 23:00 | External Medical Summary | Summary of Care ---
Author Name Unknown Organization [facility] Address [address] [place] [address] Phone [phone] Care Team Providers Care Power Screwdriver Operator Name Role Phone Kavya Dillard GARRETT Primary Care Provider Reason for Visit * Reason Onset Date Comments case management 09/08/2022 Encounter Details Date Type Department Care Team Description 09/08/2022 Certified Hyperbaric Technologist Telephone [facility] [address] [place], [place] [phone] Kayli Horton, data management manager Allergies No known active allergiesdocumented as of this encounter (statuses as of 09/08/2022) Medications Medication Sig Dispensed Refills Start Date [...] continuous oxygen with exertion DME: [facility] Indications: Inc to 4LPM with ambulation/exert [...] OPD, group D, by GOLD 2017 classification ([facility]) INHALE BY MOUTH 2 PUFFS EVERY [...] as of this encounter (statuses as of 09/08/2022) Active Problems Problem Noted Date Severe protein-calorie [...] as of this encounter (statuses as of 09/08/2022) Resolved Problems Problem Noted Date Resolved Date [...] as of this encounter (statuses as of 09/08/2022) Immunizations Name Administration Dates Next Due Pneumococcal [...] Telephone Encounter - Kayli Horton RN - 09/08/2022 12:41 PM EDT 1. Follow-up Routine - due for CM comp reassessment 2. Attempted Phone Call First Attempt 3. Call Unanswered Left Voicemail 4. Plan To attempt Follow-up Called pharmacy to inquire about wixela (see myg message) was told patients insurance for Rx coverage is [employer] and [employer] 325276 [facility] 9999 [place] [id number] Helpdesk # documented in this encounter Plan of Treatment Upcoming Encounters Date Type Specialty Care Team Description 09/10/2022 Telemedicine [facility] Taylor Schwartz PA-C [address] [place] [address] Gaye Jerez, Community Health Cad Application Support Specialist [address] [place] [address] Health Maintenance Due Date Last Done Comments [...] 10/20/2017 LUNG CANCER SCREENING - USE SMARTSET 16576 Completed 06/23/2017 Pneumococcal Vaccine: 65+ Years Completed [...] filedocumented as of this encounter Care Teams Power Screwdriver Operator Relationship Specialty Start Date End Date Kavya Dillard CRNP [address] [place] [address] PCP - General Nurse Practitioner 12/31/20 documented as of this encounter
--- OUTSIDE RECORDS SUMMARY | 2023-04-08 23:00 | External Medical Summary | Summary of Care ---
Author Name Unknown Organization [facility] Address [address] [place] [address] Phone [phone] Care Team Providers Care Poultry Raiser Name Role Phone Kavya Dillardlle GARRETT Primary Care Provider Reason for Visit * Reason Onset Date Comments Appointment 09/04/2022 Encounter Details Date Type Department Care Team Description 09/04/2022 Telephone [facility] [place] [place] [address] [place] [address] Services, Scheduling [address] [place] [address] Appointment (/) Allergies No known active allergiesdocumented [...] 3 LPM continuous oxygen with exertion DME: [facility] Indications: Inc to 4LPM with ambulation/exert [...] 09/04/2022) Immunizations Name Administration Dates Next Due PPD 04/22/2005 Pneumococcal Conjugate Vacc, 13 Valent (Prevnar) 10/20/2017 Pneumococcal Polysaccharide PPV23 (Pneumovax) 04/27/2017 Seasonal Influenza, Quadriva lent, No Preserve, 6 Mons & Above, IM 02/28/2018,03/12/2017 Seasonal Influenza, Split, I IV3, With [...] encounter Miscellaneous Notes * Telephone Encounter - Azalia Guardado RN - 09/04/2022 11:35 AM EDT Patient's calling back about a message on voicemail. Wanted to make sure she heard the date correct. Chart reviewed and Telemed with Leonila Ruiz-PA is 46 at 3 pm. She is agreeable to date/time. Azalia Guardado. RN GAH lock stitch channeler [phone] * Telephone Encounter - JAH Guzman - 09/04/2022 11:01 AM EDT LMOM for pt to confirm return kaco telemed for 09/10 at 3pm documented in this encounter Plan of Treatment Upcoming Encounters Date Type Specialty Care Team Description 09/10/2022 Telemedicine [facility] Taylor Schwartz PA-C [address] [place] [address] Gaye Jerez, Community Health Jig Operator [address] [place] [address] Health Maintenance Due Date Last Done Comments [...] 10/20/2017 LUNG CANCER SCREENING - USE SMARTSET 84403 Completed 06/23/2017 Pneumococcal Vaccine: 65+ Years Completed [...] filedocumented as of this encounter Care Teams Poultry Raiser Relationship Specialty Start Date End Date Kavya Dillard CRNP [address] [place] [address] PCP - General Nurse Practitioner 12/31/20 documented as of this encounter
--- OUTSIDE RECORDS SUMMARY | 2023-04-08 23:00 | External Medical Summary | Summary of Care ---
Author Name Unknown Organization [facility] Address [address] [place] [address] Phone [phone] Care Team Providers Care Landman Name Role Phone Kavya Dillard GARRETT Primary Care Provider Reason for Visit * Reason Comments case management Encounter Details Date Type Department Care Team Description 09/09/2022 Form Maker Plaster Ancillary [facility] [address] [place] [address] Kayli Horton, RN Medical home patient encounter* Allergies No known active allergiesdocumented as of this encounter (statuses as of 09/10/2022) Medications Medication Sig Dispensed Refills Start Date [...] LPM continuous oxygen with exertion DME: [facility] Indications: Inc to 4LPM with [...] 03/20/2022 Active Folic Acid 1 MG Oral TabletIndications:Ch [...] COPD, group D, by GOLD 2017 classification ([facility]) INHALE BY MOUTH 2 PUFFS EVERY [...] 60 Blister Dosing Unit 3 09/08/2022 Active documented as of this encounter (statuses as of 09/10/2022) Active Problems Problem Noted Date Severe protein-calorie [...] as of this encounter (statuses as of 09/10/2022) Resolved Problems Problem Noted Date Resolved Date [...] as of this encounter (statuses as of 09/10/2022) Immunizations Name Administration Dates Next Due Pneumococcal [...] Progress Notes * Kayli Horton RN - 09/10/2022 9:54 AM EDT [facility]ADIS Comp annual re-assessment Form Maker Plaster Progress Note: Date: 09/09/22 Current Patient Tier: 3 Assessment: Case Management Assessment Does this patient have COVID-19: NO Is this call for a hospital, prison or rehab facility discharge to home? No Review of Current goals: Connected with patient's via clinic visit. Noted the following: Daniel is ambulating a little more, feeling a little improved. Sinus pressure improved. Bowels have improved. Still having some dyspnea on exertion. Patient fills His own pillbox. Discussed the following patient-centered CM goals with the patient during this discussion: -COPD: Achieve successful management of COPD -Status: At Risk working on getting patient trelegy. -ADHERENCE: Treatment plan -Status: At Risk see above. -SAFETY: Prevent falls or injuries -Status: On Track using walker to ambulate. Medication Reconciliation: Medication Reconciliation completed: yes Plan for Future Contacts: Plan to follow up within 1 month to check progress on the following goals/needs COPD status, and medications if able to obtain trelegy. Noting that contacts from the following parties will occur this week: [facility] Chlorobutadiene Scrubber Operator and [facility] provider televisit as additional contacts per workflow. Advancement/Closure Plan: CM Plan : Keep patient at current Tier with reassessment per workflow. Patient provided CM contact information and encouraged to call with any changes in condition. Did you receive an alert for an annual wellness visit? No SNP Member? No PCP Notified of enrollment in CM/HM program: Yes Is Provider in agreement with POC? Yes Kayli Horton RN Outpatient Case Management documented in this encounter Plan of Treatment Health Maintenance Due Date Last Done Comments [...] 10/20/2017 LUNG CANCER SCREENING - USE SMARTSET 96908 Completed 06/23/2017 Pneumococcal Vaccine: 65+ Years Completed [...] examination documented in this encounter Care Teams Landman Relationship Specialty Start Date End Date Kavya Dillard CRNP [address] [place] [address] PCP - General Nurse Practitioner 12/31/20 documented as of this encounter
--- OUTSIDE RECORDS SUMMARY | 2023-04-08 23:00 | External Medical Summary | Summary of Care ---
Author Name Unknown Organization [facility] Address [address] [place] [address] Phone [phone] Care Team Providers Care Passenger Locomotive Engineer Name Role Phone Kavya Dillardlle GARRETT Primary Care Provider Reason for Visit * Reason Onset Date Comments Appointment 10/19/2022 Encounter Details Date Type Department Care Team Description 10/19/2022 Telephone [facility] [place] [place] [address] [place], [place] [id number] Services, Scheduling [address] [place] [address] Appointment (/) Allergies No known active allergiesdocumented as of this encounter (statuses as of 10/19/2022) Medications Medication Sig Dispensed Refills Start Date [...] 3 LPM continuous oxygen with exertion DME: [facility] Indications: Inc to 4LPM with [...] COPD, group D, by GOLD 2017 classification ([facility]) INHALE BY MOUTH 2 PUFFS EVERY 4 [...] as of this encounter (statuses as of 10/19/2022) Active Problems Problem Noted Date Severe protein-calorie [...] as of this encounter (statuses as of 10/19/2022) Resolved Problems Problem Noted Date Resolved Date [...] as of this encounter (statuses as of 10/19/2022) Immunizations Name Administration Dates Next Due Pneumococcal [...] * Telephone Encounter - JAH Guzman - 10/19/2022 1:08 PM EDT Call to pt to confirm return [facility] telemed for 10/28 at 3pm, pt agreeable documented in this encounter Plan of Treatment Upcoming Encounters Date Type Specialty Care Team Description 10/28/2022 Telemedicine [facility] Taylor Schwartz PA-Leonila [address] [place] [address] Radha Patten, Community [facility] Materials Planning Analyst [address] [place] [address] [place] [address] Health Maintenance Due Date Last Done Comments [...] 10/20/2017 LUNG CANCER SCREENING - USE SMARTSET 15882 Completed 06/23/2017 Pneumococcal Vaccine: 65+ Years Completed [...] filedocumented as of this encounter Care Teams Passenger Locomotive Engineer Relationship Specialty Start Date End Date Kavya Dillard CRNP [address] [place] [address] PCP - General Nurse Practitioner 12/31/20 documented as of this encounter
--- OUTSIDE RECORDS SUMMARY | 2023-04-08 23:00 | External Medical Summary | Summary of Care ---
Author Name Unknown Organization [facility] Address [address] [place] [address] Phone [phone] Care Team Providers Care Rug Hooker Name Role Phone Kavya Dillard GARRETT Primary Care Provider Reason for Visit * Reason Comments case management Encounter Details Date Type Department Care Team Description 09/15/2022 Drain Layer Ancillary [facility] [address] [place] [address] Kayli Horton, RN Medical home patient encounter* Allergies No known active allergiesdocumented as of this encounter (statuses as of 09/18/2022) Medications Medication Sig Dispensed Refills Start Date [...] LPM continuous oxygen with exertion DME: [facility] Indications: Inc to 4LPM with ambulation/exert [...] COPD, group D, by GOLD 2017 classification ([facility]) INHALE BY MOUTH 2 PUFFS [...] 60 Blister Dosing Unit 3 09/08/2022 Active Doxycycline Hyclate 100 MG Oral Capsule Take 1 Capsule by mouth in the morning and 1 Capsule before bedtime. Do all this for 10 days. Until gone.. 20 Capsule 0 09/10/2022 3 Active documented as of this encounter (statuses as of 09/18/2022) Active Problems Problem Noted Date Severe protein-calorie [...] as of this encounter (statuses as of 09/18/2022) Resolved Problems Problem Noted Date Resolved Date [...] as of this encounter (statuses as of 09/18/2022) Immunizations Name Administration Dates Next Due Pneumococcal [...] Progress Notes * Kayli Horton RN - 09/15/2022 3:41 PM EDT Case Management progress note S: Spoke with patient. Reports he is taking nebulizer 2x a day. Obtained trelegy at the pharmacy. Was pleased that cost was $10. Is ambulating a little more. Appetite fair. Occasional sinus pain/pressure, but overall improved. O: phone call follow up A: alert and oriented P: reinforce use of medications: nebulizer's, inhalers. documented in this encounter Plan of Treatment Upcoming Encounters Date Type Specialty Care Team Description 10/22/2022 Telemedicine [facility] Taylor Schwartz PA-C [address] [place] [address] Gaye Jerez, Community [facility] Mobile Mechanic [address] [place] [address] Health Maintenance Due Date Last [...] 10/20/2017 LUNG CANCER SCREENING - USE SMARTSET 26006 Completed 06/23/2017 Pneumococcal Vaccine: 65+ Years Completed [...] examination documented in this encounter Care Teams Rug Hooker Relationship Specialty Start Date End Date Kavya Dillard CRNP [address] [place] [address] PCP - General Nurse Practitioner 12/31/20 documented as of this encounter
--- OUTSIDE RECORDS SUMMARY | 2023-04-08 23:00 | External Medical Summary | Summary of Care ---
Author Name Unknown Organization [facility] Address [address] [place] [address] Phone [phone] Care Team Providers Care Anesthesia Assistant Name Role Phone Kavya Jacinto Primary Care Provider Reason for Visit * Reason Comments eRx-Medication Refill Encounter Details Date Type Department Care Team Description 09/21/2022 Refill Family Practice [facility] [address] [facility][1][place] [address] Kavya Jacinto CRNP [address] [place] [address] Allergies No known active allergiesdocumented as of this encounter (statuses as of 09/22/2022) Medications Medication Sig Dispensed Refills Start Date [...] 3 LPM continuous oxygen with exertion DME: [facility] Indications: Inc to 4LPM with [...] EVERY DAY 90 Tablet 3 3 Active Vancomycin HCl 125 MG Oral Capsule (Vancocin) 1 CAP DAILY UNTIL FECAL TRANSPLANT. 90 Capsule 1 3 Active predniSONE 20 MG Oral Tablet [...] :COPD, group D, by GOLD 2017 classification ([facility] [...] THE MORNING 90 Tablet 3 3 Active Potassium Chloride ER 20 MEQ Oral Tablet Extended Release Take by mouth 1 Tablet in the morning. 30 Tablet 3 2 09/23/19 23 Discontinued documented as of this encounter (statuses as of 09/22/2022) Active Problems Problem Noted Date Severe protein-calorie [...] as of this encounter (statuses as of 09/22/2022) Resolved Problems Problem Noted Date Resolved Date [...] as of this encounter (statuses as of 09/22/2022) Immunizations Name Administration Dates Next Due Pneumococcal [...] encounter Miscellaneous Notes * Telephone Encounter - Adebayo Mcqueen, [facility] - 09/22/2022 1:15 PM EDTSigned Prescriptions: Disp Refills Potassium Chloride ER 20 MEQ Oral Tablet E*90 Tab*3 Sig: TAKE 1 TABLET BY MOUTH EVERY DAY IN THE MORNING Authorizing Provider: KAVYA JACINTO User: ADEBAYO MCQUEEN * Telephone Encounter - Adebayo Mcqueen, [facility] - 09/22/2022 1:15 PM EDTPending Prescriptions: Disp Refills Potassium Chloride ER 20 MEQ Oral Tablet E*30 Tab*3 Sig: TAKE 1 TABLET BY MOUTH EVERY DAY IN THE MORNING * Telephone Encounter - Adebayo Mcqueen, [facility] - 09/22/2022 1:15 PM EDTPending Prescriptions: Disp Refills Potassium Chloride ER 20 MEQ Oral Tablet E*30 Tab*3 Sig: TAKE 1 TABLET BY MOUTH EVERY DAY IN THE MORNING * Telephone Encounter - Rachael Escobedo [facility] - 09/22/2022 12:57 PM EDT Pt's daughter asking high priority as pt is out of medication. Thank you, Rachael Escobedo Ladies' Locker Room Attendant [facility] 09/22/2022,12:59 PM * Telephone Encounter - FRANTZ John - 09/21/2022 4:39 PM EDT Did you pend patient's preferred pharmacy and medication before forwarding?yes Pharmacy: [id number] [address] [facility] Pending Prescriptions: Disp Refills Potassium Chloride ER 20 MEQ Oral Tablet *30 Tab*3 Sig: TAKE 1 TABLET BY MOUTH EVERY DAY IN THE MORNING Last Visit: 07/16/2022 (in office), Visit date not found (telemedicine) Next Visit: Visit date not found If no future appointments scheduled, and last appointment is greater than a year ago, please schedule patient for a follow-up appointment Last date the medication was ordered: 03-20-22 Is this request for a controlled substance?No [...] 10/22/2022 Telemedicine [facility] Taylor Schwartz PA-Leonila [address] [place] [address] Gaye Jerez, Community [facility] Lift Driver [address] [place] [address] Health Maintenance Due Date Last Done Comments [...] 10/20/2017 LUNG CANCER SCREENING - USE SMARTSET 43576 Completed 06/23/2017 Pneumococcal Vaccine: 65+ Years Completed [...] filedocumented as of this encounter Care Teams Anesthesia Assistant Relationship Specialty Start Date End Date Kavya Jacinto CRNP [address] [place] [address] PCP - General Nurse Practitioner 12/31/20 documented as of this encounter
--- OUTSIDE RECORDS SUMMARY | 2023-04-08 23:00 | External Medical Summary | Summary of Care ---
Author Name Unknown Organization [facility] Address [address] [place] [address] Phone [phone] Care Team Providers Care Truck Supervisor Name Role Phone Kavya Dillard GARRETT Primary Care Provider Reason for Visit * Reason Comments [facility] Care Coordination Services Encounter Details Date Type Department Care Team Description 09/10/2022 Telemedicine [facility] [address] [place] [address] Taylor Schwartz PA-C [address] [place] [address] Gaye Jerez, Community [facility] Jet Dyeing Machine Tender [address] [place], [place] [id number] COPD, group D, by GOLD 2017 classification ([facility])*; Chronic respiratory failure with hypoxia, on home O2 therapy ([facility]) Allergies No known active allergiesdocumented as [...] LPM continuous oxygen with exertion DME: [facility] Indications: Inc to 4LPM with ambulation/exert [...] D, by GOLD 2017 classification ([facility]) INHALE BY MOUTH 2 PUFFS EVERY [...] gone.. 20 Capsule 0 09/10/2022 3 Active predniSONE 20 MG Oral Tablet (Deltasone) Take 2 Tablets by mouth in the morning for 5 days. 10 Tablet 0 09/10/2022 3 Active documented as of [...] Sign Reading Time Taken Comments Blood Pressure 110/80 09/10/2022 11:07 AM EDT Pulse 76 09/10/2022 11:07 AM EDT Temperature 36.4 C (97.6 F) 09/10/2022 11:07 AM E DT Respiratory Rate 20 09/10/2022 11:07 AM EDT Oxygen Saturation 100% 09/10/2022 11:07 AM EDT Inhaled Oxygen Concentration - - Weight - - Height - - Body Mass Index - - documented in this encounter Progress Notes * Gaye Jerez, [facility] Jet Dyeing Machine Tender - 09/10/2022 11:19 AM EDT [facility] Jet Dyeing Machine Tender Visit Date: 09/10/2022 Time: 11:00 AM Name: Jer Abreu Jr. : 1940 Referral Source: Provider Source of Information: Patient Spoken language: Burmese Patient can read in Burmese: Yes. Jewish Thought Professor needed: No. COVID-19 screening completed: Yes Vitals: Vital signs completed: Yes, vital signs within normal range. BP 110/80 (BP Site: Left Arm, BP Position: Sitting) | Pulse 76 | Temp 36.4 C (97.6 F) | Resp 20| SpO2 100% Condition Changes: Changes in health or social status since last visit: Patient reporting Receiving home health visits Using oxygen at all times 3 Ambulating with a walker Sleeping in a hospital bed Not sleeping well Denied any swelling of any kind Appetite is getting better one good meal a day with snacking The patient has new concerns since last visit: No Progress towards goals since last visit: Stay comfortable in his own home Medications: Medication review completed? Yes, gaps identified and escalated to nurse/provider: . Not using nebulizer Does the patient have barriers to medication adherence? Yes. Appears confused about how to take medications: . not using nebulizer Education on medication directions Patient reports difficulty paying for medications or might in the future: No. Telehealth: This is a telehealth visit: Yes. Type of telehealth visit: Return/Routine Visit conducted with: Physician/AP Symptoms Surveys and Evaluations: MAHC10 completed this visit: Yes. Score is 4 or more? Yes, notified Provider/Jersey Knitter Last flowsheet values for MAHC10: Age 65+: 1 (09/10/2022 11:00 AM) Diagnosis [...] at risk for fallin (09/10/2022 11:00 AM) Plan: Plan for the patient . Using walker with ambulation Using oxgen at all times Using nebulizer up to every 4 hours as needed Follow Up: Patient encouraged to call the intake phone number for all urgent but not emergent issues. Scheduled to follow up with patient as needed . Gaye Jerez [facility] Jet Dyeing Machine Tender 09/10/2022 11:00 AM * Taylor Ruiz PA-C - 09/10/2022 10:30 AM EDT [facility] Provider Telemedicine Visit Date: 09/10/2022 Time: 10:55 AM Assessment/Plan: 1. COPD, group D, by GOLD 2017 classification (HCC) Stable, patient maintaining on 3 liters with a pulse ox of 100% Advised patient to try decreasing oxygen to 2 liters and monitor pulse ox at home He was advised to keep pulse ox >90% 2. Chronic respiratory failure with hypoxia, on home O2 therapy (HCC) Follow up plan: Will follow up in 6 weeks. Advised to reach out if acute needs present. Will send arescue kit for him to have on hand. Asked that he reach out to either myself or PCP if he feels theneed to start the medication. He has Trelegy prescription at the pharmacy, they are waiting to hearback when it is ready for picker box operator. A total of 25 minutes was spent face to face via video-based telemedicine. Subjective Patient location: HOME. I was not in a hospital or clinic location. After connecting through [employer], patient was verified with two unique identifiers. Patient (or authorized legal sales representative aircraft) was then informed that this was a Telemedicine visit and being conducted confidentially over secure lines. Methods to assure confidentiality were taken. Patient acknowledged consent and understanding of privacy and security of the Telemedicine visit. The patient agreed to participate. Reason for Visit: Follow-Up Current Concerns: Jer Abreu Jr. is a 81 year old male seen today for a [facility] Telemedicine Provider Visit. Date of last known acute care visit: 08/20/22 Reason for last known acute care visit: [...] to see ID but missed the appointments. He last saw PCP on 07/16/22 for hospital follow up. When I saw the patient on 08/20/22 he was prescribed antibiotics for sinusitis. PCP office sent Rx for Trelegy. Today's concerns are: Patient states he is feeling better than the last time I saw him. He is no longer having ear pain or sinus symptoms. He completed the antibiotic that was sent. Breathing is at baseline. He is not coughing up as much sputum. He feels it is thick and difficult to expectorate but he hasn't been using the neb treatments as prescribed either. Sputum color is improving. He admits to having XIAO at baseline. He is currently on 3 liters of oxygen. Appetite is fair. Diarrhea is improving and he is now going every 6 hours or so. ROS: See HPI Objective Physical Exam: BP 110/80 (BP Site: Left Arm, BP Position: Sitting) | Pulse 76 | Temp 36.4 C (97.6 F) | Resp 20| SpO2 100% Previous Wts: Wt Readings from Last 5 [...] effort is normal. No respiratory distress. Comments: Decreased breath sounds at the bases Neurological: General: No focal [...] 3 LPM continuous oxygen with exertion DME: [facility] Indications: Inc to 4LPM with ambulation/exertion 1 Each 0 Saccharomyces boulardii 250 MG Oral Capsule (Florastor) Take 1 Capsule by mouth in the morning.Florastor . Famotidine 20 MG Oral Tablet (Pepcid) Take by mouth 1 Tablet as needed before bedtime for Heartburn. 30 Tablet 11 Potassium Chloride ER 20 MEQ Oral Tablet Extended Release Take by mouth 1 Tablet in the morning. 30 Tablet 3 Folic Acid 1 MG Oral Tablet Take [...] Ellipta 100-62.5-25 MCG/ACT Aerosol Powder Breath Activated (Fqdqrrlgcma-Dqgmihwwiymd-Ciiphpzppx) Inhale 1 Puff by mouth in the morning. 60 Blister Dosing Unit 3 No current facility-administered medications for this visit. Mobility Evaluation: MACH10 Assessment: Assistive Devices Used in the Home: Walker (standard or rollator) Recent Falls: Falls in the last 6 months: No SDoH: DME (Durable Medical Equipment) needs Routine Transportation Urgent Transportation Social Isolation Taylor Ruiz PA-C 10:55 AM *Communication sent to PCP (via autofax if [facility]), Population Health Care Team members, relevant Specialty Care Physicians* documented in this encounter Plan of Treatment Upcoming Encounters Date Type Specialty Care Team Description 10/22/2022 Telemedicine [facility] Taylor Schwartz PA-C [address] [place] [address] Gaye Jerez, Community [facility] Jet Dyeing Machine Tender [address] [place] [address] Health Maintenance Due Date Last [...] 10/20/2017 LUNG CANCER SCREENING - USE SMARTSET 97035 Completed 06/23/2017 Pneumococcal Vaccine: 65+ Years Completed [...] (HCC) documented in this encounter Care Teams Truck Supervisor Relationship Specialty Start Date End Date Kavya Dillard CRNP [address] [place] [address] PCP - General Nurse Practitioner 12/31/20 documented as of this encounter"
--- OUTSIDE RECORDS SUMMARY | 2023-04-08 23:01 | External Medical Summary | Summary of Care ---
Author Name Unknown Organization [place] [address] Care Team Providers Care Sonographer Name Role Phone Kavya Dillard Primary Care Provider Reason for Visit * Reason Onset Date Comments case management 08/01/2022 Encounter Details Date Type Department Care Team Description 08/01/2022 Telephone Family Practice [facility] [address] [facility] [place] [address] Kavya Dillard CRNP [address] [place] [address] case management Allergies No known active allergiesdocumented as of this encounter (statuses as of 08/03/2022) Medications Medication Sig Dispensed Refills Start Date End Date Status acetaminophen (TYLENOL) 500 MG Tablet Take 500 mg by mouth every 4 hours as needed for Pain. 0 11/18/2017 Active hydrocortisone acetate (ANUSOL-HC) 25 MG suppository Administer 25 mg into the rectum 2 times a day as needed for Hemorrhoids. 0 Active Multiple Vitamins-Minerals (MULTIVITAMIN ADULTS) TABS Take by mouth daily. 0 Active oxygen IN GASIndications:Inc to 4LPM with ambulation/exertion 2.5 lpm at rest 3 LPM continuous oxygen with exertion DME: [facility] Indications: Inc to 4LPM with ambulation/exerti on 1 Each 0 04/01/2021 Active Fluticasone-Salmeter ol 250-50 MCG/DOSE Inhalation Aerosol Powder Breath Activated (Advair Diskus)Indications:S OB (shortness of breath) Inhale by mouth 1 Puff in the morning AND 1 Puff before bedtime. Brand necessary. 3 Each 3 09/10/2021 Active Saccharomyces boulardii 250 MG Oral Capsule (Florastor) Take by mouth 250 mg in the morning. Florastor . 0 Active [...] FECAL TRANSPLANT. 90 Capsule 1 06/29/2022 Active Additional Information Patient not taking.Reported on 07/16/2022 Incruse Ellipta 62.5 MCG/ACT Inhalation Aerosol Powder Breath Activated 0 07/12/2022 Active predniSONE 20 MG Oral Tablet (Deltasone) 0 07/07/2022 Active metroNIDAZOLE 500 MG Oral Tablet (Flagyl) 1 Tablet. 0 07/07/2022 Acti ve Lidocaine 5 % External Patch (Lidoderm) AT BEDTIME 0 07/07/2022 Active levoFLOXacin 750 MG Oral Tablet (Levaquin) 1 Tablet. 0 06/26/2022 Active Levalbuterol HCl 1.25 MG/3ML Inhalation Nebulization Solution (Xopenex) 3 mL. 0 09/27/2021 Active Ipratropium-Albutero l 20-100 MCG/ACT Inhalation Aerosol Solution (Combivent Respimat) [...] BRAND NECESSARY 54 g 3 07/22/2022 Active documented as of this encounter (statuses as of 08/03/2022) Active Problems Problem Noted Date Severe protein-calorie malnutrition 07/08 Persistent atrial fibrillation 3 Counseling regarding end of life decisio n making 06/29/2022 Anemia 01/28/2022 Recurrent colitis due to [...] as of this encounter (statuses as of 08/03/2022) Resolved Problems Problem Noted Date Resolved Date [...] as of this encounter (statuses as of 08/03/2022) Immunizations Name Administration Dates Next Due PPD [...] Telephone Encounter - Kayli Horton RN - 08/03/2022 2:28 PM EST Called and spoke with patients Violeta, she had questions about home health. Discussed [facility] home health could come this week. She is agreeable and will call them back to set up. * Telephone Encounter - Lani North LPN - 08/03/2022 1:44 PM EST Patient is calling. Would like a call from the pillowcase cleaner. * Telephone Encounter - Kayli Horton RN - 08/03/2022 10:54 AM EST Received a VM from Jennifer at [facility], they can accept the patient and see him on Wednesday. Faxed OV, cover sheet and demographics to their office at #[phone] * Telephone Encounter - Kayli Horton RN - 08/03/2022 8:41 AM EST Called [facility]. Spoke with Jennifer at their referral line. They will review their schedule/availablity and call back to notify if they can or cannot accept patient. * Telephone Encounter - Jossie Zavala LPN - 08/03/2022 8:31 AM EST Called pt to see where he would prefer his home care referral be sent due to fax from [facility]. No answer, LM to return call, sent my g. * Telephone Encounter - GARRETT Root - 08/01/2022 12:39 PM EST Please fax to home health of patient choice, no [facility] Randy, AMBER, GARRETT [facility] * Telephone Encounter - Jossie Zavala LPN - 08/01/2022 12:25 PM EST Received fax from [facility] home care-- Stating the referral they received yesterday was denied due to "We are unable to take this referral at this time due to audi census in the area". Please advise next steps. (sent to case mgmt also) documented in this encounter Plan of Treatment Upcoming Encounters Date Type Specialty Care Team Description 08/11/2022 Telemedicine [facility] Taylor Schwartz PA-C [address] [place] [address] Gaye Jerez, Community Health Stock Pitcher [address] [place] [address] 08/19/2022 Office Visit Infectious Disease [facility], [address] [place] [address] Health Maintenance Due Date Last [...] ASSESSMENT COMPLETED IN PAST YEAR FOR COPD 07/16/2023 07/16/2022 DTaP,Tdap,and Td Vaccines (2 - Td or Tdap) 10/21/2027 10/20/2017 LUNG CANCER SCREENING - USE SMARTSET 15466 Completed 06/23/2017 Pneumococcal Vaccine: 65+ Years Completed [...] filedocumented as of this encounter Care Teams Sonographer Relationship Specialty Start Date End Date Kavya Dillard CRNP [address] [place] [address] PCP - General Nurse Practitioner 12/31/20 documented as of this encounter
--- OUTSIDE RECORDS SUMMARY | 2023-04-08 23:01 | External Medical Summary | Summary of Care ---
Author Name Unknown Organization [facility] Address [address] [place] [address] Phone [phone] Care Team Providers Care Automobile Appraiser Name Role Phone Kavya Dillard GARRETT Primary Care Provider Reason for Visit * Reason Onset Date Comments case management 08/06/2022 Encounter Details Date Type Department Care Team Description 08/06/2022 Child Day Care Teacher Telephone Family Practice [facility] [address] [place] [address] Kayli Horton, project management professor Allergies No known active allergiesdocumented as of this encounter (statuses as of 08/06/2022) Medications Medication Sig Dispensed Refills Start Date [...] LPM continuous oxygen with exertion DME: [facility] Indications: Inc to 4LPM with ambulation/exerti [...] as of this encounter (statuses as of 08/06/2022) Active Problems Problem Noted Date Severe protein-calorie malnutrition 07/08 Persistent atrial fibrillation Counseling regarding end of life decisio n [...] as of this encounter (statuses as of 08/06/2022) Resolved Problems Problem Noted Date Resolved Date [...] as of this encounter (statuses as of 08/06/2022) Immunizations Name Administration Dates Next Due Pneumococcal [...] Telephone Encounter - Kayli Horton RN - 08/06/2022 10:41 AM EST Case management progress note Phone call update from patients Violeta, home health nurse visit will be this afternoon. documented in this encounter Plan of Treatment Upcoming Encounters Date Type Specialty Care Team Description 08/11/2022 Telemedicine [facility] Taylor Schwartz PA-C [address] [place] [address] Gaye Jerez, Community Health Rivet Sorter [address] [place] [address] 08/19/2022 Office Visit Infectious Disease [facility] Tim, [address] [place] [address] Health Maintenance Due Date Last [...] 10/20/2017 LUNG CANCER SCREENING - USE SMARTSET 83972 Completed 06/23/2017 Pneumococcal Vaccine: 65+ Years Completed [...] filedocumented as of this encounter Care Teams Automobile Appraiser Relationship Specialty Start Date End Date Kavya Dillard CRNP [address] [place] [address] PCP - General Nurse Practitioner 12/31/20 documented as of this encounter
--- OUTSIDE RECORDS SUMMARY | 2023-04-08 23:01 | External Medical Summary | Summary of Care ---
Author Name Unknown Organization [facility] Address [address] [place] [address] Phone [phone] Care Team Providers Care It Security Manager Name Role Phone Kavya Dillard GARRETT Primary Care Provider Reason for Visit * Reason Comments case management Encounter Details Date Type Department Care Team Description 08/14/2022 Joint YarnerSpectral Scientist Practice [facility] [address] [place] [address] Kayli Horton, RN Medical home patient encounter* Allergies No known active allergiesdocumented as of this encounter (statuses as of 08/14/2022) Medications Medication Sig Dispensed Refills Start Date [...] 3 LPM continuous oxygen with exertion DME: [facility] Indications: Inc to 4LPM with [...] as of this encounter (statuses as of 08/14/2022) Active Problems Problem Noted Date Severe protein-calorie [...] as of this encounter (statuses as of 08/14/2022) Resolved Problems Problem Noted Date Resolved Date [...] as of this encounter (statuses as of 08/14/2022) Immunizations Name Administration Dates Next Due Pneumococcal [...] Progress Notes * Kayli Horton RN - 08/14/2022 12:04 PM EST 1. Follow-up Routine 2. Attempted Phone Call First Attempt 3. Call Unanswered Left Voicemail 4. Plan To attempt Follow-up documented in this encounter Plan of Treatment Upcoming Encounters Date Type Specialty Care Team Description 08/19/2022 Office Visit Infectious Disease [facility]anning Tim, [address] [place] [address] 08/20/2022 Telemedicine [facility] Taylor Schwartz PA-C [address] [place] [address] Gaye Jerez, Community Health Plant Attendant [address] [place] [address] Health Maintenance Due Date Last Done Comments [...] 10/20/2017 LUNG CANCER SCREENING - USE SMARTSET 69417 Completed 06/23/2017 Pneumococcal Vaccine: 65+ Years Completed [...] examination documented in this encounter Care Teams It Security Manager Relationship Specialty Start Date End Date Kavya Dillard CRNP [address] [place] [address] PCP - General Nurse Practitioner 12/31/20 documented as of this encounter
--- OUTSIDE RECORDS SUMMARY | 2023-04-08 23:01 | External Medical Summary | Summary of Care ---
Author Name Unknown Organization [facility] Address [address] [place] [address] Phone [phone] Care Team Providers Care Car Framer Name Role Phone Kavya Dillard GARRETT Primary Care Provider Reason for Visit * Reason Onset Date Comments case management 08/24/2022 Encounter Details Date Type Department Care Team Description 08/24/2022 Consulting Engineer Telephone Family Practice [facility] [address] [place] [address] Kayli Horton, software asset management analyst Allergies No known active allergiesdocumented as of this encounter (statuses as of 08/25/2022) Medications Medication Sig Dispensed Refills Start Date [...] 3 LPM continuous oxygen with exertion DME: [facility] Indications: Inc to 4LPM with ambulation/exer tion 1 Each 0 04/01/2021 Active Fluticasone-Salmete rol 250-50 MCG/DOSE Inhalation Aerosol Powder Breath Activated (Advair Diskus)Indications: SOB (shortness of breath) Inhale by mouth 1 [...] 03/20/2022 Active Folic Acid 1 MG Oral TabletIndications:C [...] Solution (Xopenex) 3 mL. 0 09/27/2021 Active Ipratropium-Albuter ol 20-100 MCG/ACT Inhalation Aerosol Solution (Combivent Respimat) FOUR TIMES DAILY 0 12/05/2021 Active guaiFENesin 200 MG Oral Tablet TAKE 1 TABLET BY MOUTH EVERY 6 HOURS NEEDED FOR CONGESTION FOR 4 DAYS 0 06/26/2022 Active Ventolin HFA 108 (90 Base) MCG/ACT Inhalation Aerosol SolutionIndications :COPD, group D, by GOLD 2017 classification (HCC) INHALE BY MOUTH 2 PUFFS EVERY 4 HOURS NEEDED FOR WHEEZING. BRAND NECESSARY 54 g 3 07/22/2022 Active Fluticasone-Salmete rol 250-50 MCG/ACT Inhalation Aerosol Powder Breath Activated (Wixela Inhub) Inhale 1 Puff by mouth in the morning and 1 Puff before bedtime. 60 Each 12 08/19/2022 Active Doxycycline Hyclate 100 MG Oral Capsule Take 1 Capsule by mouth in the morning and 1 Capsule before bedtime. Do all this for 10 days. Until gone.. 20 Capsule 0 08/20/2022 3 Active Triamcinolone Acetonide 55 MCG/ACT Nasal Aerosol (Nasacort Allergy 24HR) Administer 2 Sprays into each nostril in the morning. 1 Each 1 08/20/2022 Active Incruse Ellipta 62.5 MCG/ACT Inhalation Aerosol Powder Breath Activated 0 07/12/2022 3 Discontinue d(Refill) documented as of this encounter (statuses as of 08/25/2022) Active Problems Problem Noted Date Severe protein-calorie [...] as of this encounter (statuses as of 08/25/2022) Resolved Problems Problem Noted Date Resolved Date [...] as of this encounter (statuses as of 08/25/2022) Immunizations Name Administration Dates Next Due Pneumococcal [...] Telephone Encounter - Kayli Horton RN - 08/24/2022 4:39 PM EDT Case Management progress note S: Spoke with Pt Violeta. She is Asking about refill for incruse. She reports that Daniel is having less pressure with his eye. No fevers. He is also using an OTC eye drop. They are flushing his ear with an OTC wax kit. He was present and speaking in the background during call. Has upcoming televisit. They are awaiting further information on the [employer] patient assistance program. Daniel has no other concerns at this time. O: phone call follow up A: alert and oriented P: Refill request sent to PCP. Continue to monitor and report any changes in symptoms or concerns documented in this encounter Plan of Treatment Upcoming Encounters Date Type Specialty Care Team Description 09/10/2022 Telemedicine [facility] Taylor Schwartz PA-Leonila [address] [place] [address] Gaye Jerez, Community Health Senior Systems Analyst [address] [place] [address] Health Maintenance Due Date Last [...] 10/20/2017 LUNG CANCER SCREENING - USE SMARTSET 41000 Completed 06/23/2017 Pneumococcal Vaccine: 65+ Years Completed [...] filedocumented as of this encounter Care Teams Car Framer Relationship Specialty Start Date End Date Kavya Dillard CRNP [address] [place] [address] PCP - General Nurse Practitioner 12/31/20 documented as of this encounter
--- OUTSIDE RECORDS SUMMARY | 2023-04-08 23:01 | External Medical Summary | Summary of Care ---
Author Name Unknown Organization [facility] Address [address] [place] [address] Phone [phone] Care Team Providers Care Administrative Office Specialist Name Role Phone Kavya Jacinto Primary Care Provider Encounter Details Date Type Department Care Team Description 08/19/2022 Refill Family Practice [facility] [address] [facility] [address] Kavya Jacinto CRNP [address] [facility] [place] [address] Allergies No known active allergiesdocumented as of this encounter (statuses as of 08/19/2022) Medications Medication Sig Dispensed Refills Start Date [...] 3 LPM continuous oxygen with exertion DME: [facility] Indications: Inc to 4LPM with [...] BRAND NECESSARY 54 g 3 07/22/2022 Active Fluticasone-Salmeter ol 250-50 MCG/ACT Inhalation Aerosol Powder Breath Activated (Wixela Inhub) Inhale 1 Puff by mouth in the morning and 1 Puff before bedtime. 60 Each 12 08/19/2022 Active documented as of this encounter (statuses as of 08/19/2022) Active Problems Problem Noted Date Severe protein-calorie [...] as of this encounter (statuses as of 08/19/2022) Resolved Problems Problem Noted Date Resolved Date [...] as of this encounter (statuses as of 08/19/2022) Immunizations Name Administration Dates Next Due Pneumococcal [...] * Telephone Encounter - GARRETT Root - 08/19/2022 4:46 PM EDT Signed Prescriptions: Disp Refills Fluticasone-Salmeterol 250-50 MCG/ACT Inha*60 Each12 Sig: Inhale 1 Puff by mouth in the morning and 1 Puff before bedtime. Authorizing Provider: KAVYA JACINTO * Telephone Encounter - Shannan Posey LPN - 08/19/2022 4:41 PM EDT Pt is no longer eligible for pt assistance program. Pt needs formulary alternative to be sent into pharmacy. Pended generic * Telephone Encounter - GARRETT Root - 08/19/2022 4:15 PM EDT Please print paperwork and start process to get advair approved. Randy, MSN, GARRETT [facility] documented in this encounter Plan of Treatment Upcoming Encounters Date Type Specialty Care Team Description 08/20/2022 Telemedicine [facility] Taylor Schwartz PA-Leonila [address] [place] [address] Gaye Jerez, Community Health Talent Development Coordinator [address] [place] [address] Health Maintenance Due Date Last [...] 10/20/2017 LUNG CANCER SCREENING - USE SMARTSET 60075 Completed 06/23/2017 Pneumococcal Vaccine: 65+ Years Completed [...] filedocumented as of this encounter Care Teams Administrative Office Specialist Relationship Specialty Start Date End Date Kavya Jacinto CRNP [address] [place] [address] PCP - General Nurse Practitioner 12/31/20 documented as of this encounter
--- OUTSIDE RECORDS SUMMARY | 2023-04-08 23:01 | External Medical Summary | Summary of Care ---
Author Name Unknown Organization [facility] Address [address] [place] [address] Phone [phone] Care Team Providers Care Cold Strip Feeder Name Role Phone Kavya Dillard GARRETT Primary Care Provider Reason for Visit * Reason Onset Date Comments case management 07/28/2022 Encounter Details Date Type Department Care Team Description 07/28/2022 Dry Color Mixer Telephone Family Practice [facility] [address] [place] [address] Kayli Horton, case management director Allergies No known active allergiesdocumented as of this encounter (statuses as of 08/04/2022) Medications Medication Sig Dispensed Refills Start Date [...] 3 LPM continuous oxygen with exertion DME: [facility] Indications: Inc to 4LPM with ambulation/exerti [...] as of this encounter (statuses as of 08/04/2022) Active Problems Problem Noted Date Severe protein-calorie [...] as of this encounter (statuses as of 08/04/2022) Resolved Problems Problem Noted Date Resolved Date [...] as of this encounter (statuses as of 08/04/2022) Immunizations Name Administration Dates Next Due Pneumococcal [...] Telephone Encounter - Kayli Horton RN - 07/28/2022 4:00 PM EST Spoke with patient and his Violeta. He states he prefers not to go out for an appointment at thistime. Offered [facility] home/tele visit, they are agreeable. Did discuss for worsening symptoms or worsening weakness to go to ER. Verbalized understanding. Message to Taylor Arora to refer/set up home visit . * Telephone Encounter - GARRETT Root - 07/28/2022 3:12 PM EST Needs to be seen either in office or at Urgent care/ED. Especially feeling weak. Request of ov needs 40 minutes- very complicated/ also borderline hospice care due to advanced COPD. Randy, MSN, GARRETT [facility] * Telephone Encounter - Kayli Horton RN - 07/28/2022 2:49 PM EST Dry Color Mixer Progress note S: Patents Violeta called in asking about a refill of levaquin. Discussed this was for pneumonia at discharge from his hospitalization. Violeta then put Daniel on the phone as he has not been feeling well. Daniel reports being cold and feeling chilled. He "cant get warm". Temperature at time of call was reported 96.4 oral. He reports R sided sinus pressure/congestion and ear congestion and pain on the right side. He has had this for approx 10 days. He is getting yellow mucus and occasional blood when blowing his nose. He denies any wheezing of SOB, states this has been okay. He does feel weak. Admits to Poor appetite. Denies any problems with bowels or bladder. O: phone call A: Alert and oriented P: Message to provider for advice. documented in this encounter Plan of Treatment Upcoming Encounters Date Type Specialty Care Team Description 08/11/2022 [facility]icine [facility]C [address] [facility] [place] [address] Gaye Jerez, Community Health Wool Shearer [address] [place] [address] 08/19/2022 Office Visit Infectious Disease Channing Tim, [address] [place] [address] Health Maintenance Due Date Last Done Comments [...] 10/20/2017 LUNG CANCER SCREENING - USE SMARTSET [id number] Completed 06/23/2017 Pneumococcal Vaccine: 65+ Years Completed [...] filedocumented as of this encounter Care Teams Cold Strip Feeder Relationship Specialty Start Date End Date Kavya Dillard CRNP [address] [place] [address] PCP - General Nurse Practitioner 12/31/20 documented as of this encounter
--- OUTSIDE RECORDS SUMMARY | 2023-04-08 23:01 | External Medical Summary | Summary of Care ---
Author Name Unknown Organization [facility] Address [address] [place] [address] Phone [phone] Care Team Providers Care Elementary Teacher Name Role Phone Kavya Dillard GARRETT Primary Care Provider Reason for Visit * Reason Comments [facility] Care Coordination Services Encounter Details Date Type Department Care Team Description 08/20/2022 Telemedicine [facility] [address] [place] [address] Taylor Schwartz PA-C [address] [place] [address] Gaye Jerez, Community Health Hide Inspector And Sorter [address] [place], [place] [id number] Chronic respiratory failure with hypoxia, on home O2 therapy (HCC)*; Anemia, unspecified type; Alcohol abuse; Other acute recurrent sinusitis Allergies No known active allergiesdocumented as of this encounter (statuses as of 08/21/2022) Medications Medication Sig Dispensed Refills Start Date [...] LPM continuous oxygen with exertion DME: [facility] Indications: Inc to 4LPM [...] FECAL TRANSPLANT. 90 Capsule 1 06/29/2022 Active Incruse Ellipta 62.5 MCG/ACT Inhalation Aerosol [...] :COPD, group D, by GOLD 2017 classification ([facility] [...] the morning. 1 Each 1 08/20/2022 Active metroNIDAZOLE 500 MG Oral Tablet (Flagyl) 1 Tablet. 0 07/07/2022 3 Discontinue d(Medicatio n List Clean Up) levoFLOXacin 750 MG Oral Tablet (Levaquin) 1 Tablet. 0 06/26/2022 3 Discontinue d(Medicatio n List Clean Up) documented as of this encounter (statuses as of 08/21/2022) Active Problems Problem Noted Date Severe protein-calorie [...] as of this encounter (statuses as of 08/21/2022) Resolved Problems Problem Noted Date Resolved Date [...] as of this encounter (statuses as of 08/21/2022) Immunizations Name Administration Dates Next Due Pneumococcal [...] Sign Reading Time Taken Comments Blood Pressure 102/52 08/20/2022 11:20 AM EDT Pulse 70 08/20/2022 11:20 AM EDT Temperature 36.6 C (97.8 F) 08/20/2022 11:20 AM E DT Respiratory Rate 18 08/20/2022 11:20 AM EDT Oxygen Saturation 95% 08/20/2022 11:20 AM EDT 3 Inhaled Oxygen Concentration - - Weight - - Height - - Body Mass Index - - documented in this encounter Progress Notes * Gaye Jerez, [facility] Health Hide Inspector And Sorter - 08/20/2022 11:25 AM EDT Community Health Hide Inspector And Sorter Visit Date: 08/20/2022 Time: 11:25 AM Name: Jer Abreu JrJosé Miguel : 1940 Referral Source: Provider Source of Information: Patient Spoken language: Guatemalan Patient can read in Guatemalan: Yes. Excavation Laborer needed: No. COVID-19 screening completed: Yes Vitals: Vital signs completed: Yes, vital signs within normal range. BP 102/52 (BP Site: Left Arm, BP Position: Sitting, BP Cuff Size: Regular) | Pulse 70 | Temp 36.6 C (97.8 F) | Resp 18 | SpO2 95% Comment: 3 Condition Changes: Changes in health or social status since last visit: Patient reporting Receiving home health visits Using oxygen at all times 3 Ears are bothersome Ambulating with a walker Sleeping in a hospital bed Denied any swelling of any kind Appetite is getting better one good meal a day with snacking Used otoscope to view ears with provider left ear impacted with wax Right ear some wax build up with small amount of fluid in the inner ear The patient has new concerns since last visit: Yes, coast of inhalers (paper work completed by Daughter in-law ) Progress towards goals since last visit: Stay comfortable in his own home Medications: Medication review completed? Yes, gaps identified and escalated to nurse/provider: . Not using nebulizer as much as he should Use 3x a day to help with breathing Does the patient have barriers to medication adherence? Yes. Appears confused about how to take medications: . Education on medication directions Patient reports difficulty paying for medications or might in the future: Yes. Specify plan/referrals/care team members notified: . Inhalers (application in progress ) Telehealth: This is a telehealth visit: Yes. Type of telehealth visit: Return/Routine Visit conducted with: Physician/AP Symptoms Surveys and Evaluations: MAHC10 completed this visit: Yes. Score is 4 or more? Yes, notified Provider/Glove Brusher Last flowsheet values for MAHC10: Age 65+: 1 (08/20/2022 11:00 AM) Diagnosis (3 or more co-existing): 1 (08/20/2022 11:00 AM) Prior history of falls within 3 months: 0 (08/20/2022 11:00 AM) Incontinence: 1 (08/20/2022 11:00 AM) Visual impairment: 1 (08/20/2022 11:00 AM) Impaired functional mobility: 1 (08/20/2022 11:00 AM) Environmental hazards: 1 (08/20/2022 11:00 AM) Poly Pharmacy (4 or more prescriptions - any type): 1 (08/20/2022 11:00 AM) Pain affecting level of function: 0 (08/20/2022 11:00 AM) Cognitive impairment: 0 (08/20/2022 11:00 AM) Score - a score of 4 or more is considered at risk for fallin (08/20/2022 11:00 AM) Plan: Plan for the patient . Follow Up: Patient encouraged to call the intake phone number for all urgent but not emergent issues. Scheduled to follow up with patient as needed . Gaye Jerez Community Health Hide Inspector And Sorter 08/20/2022 11:25 AM Electronically signed by Gaye Jerez [facility] Health Hide Inspector And Sorter at 08/21/2022 8:21 AM EDT * Taylor Ruiz PA-C - 08/20/2022 11:00 AM EDT [facility] Provider Telemedicine Visit Date: 08/20/2022 Time: 10:31 AM Assessment/Plan: 1. Chronic respiratory failure with hypoxia, on home O2 therapy (HCC) Maintains on 3 liters of oxygen Continue inhalers 2. Anemia, unspecified type Will monitor 3. Alcohol abuse Patient states he drinks one alcoholic beverage a day 4. Other acute recurrent sinusitis Doxycycline and Nasocort spray sent to the pharmacy Follow up plan: Will follow up in 3-4 weeks. Patient has complaints of sinusitis for nearly one month. He has a history of C.diff colitis and takes daily Vancomycin. Will treat with Doxycycline and try to avoid the penicillin/cephalosporin group. Will monitor anemia A total of 35 minutes was spent face to face via video-based telemedicine. Subjective Patient location: HOME. I was not in a hospital or clinic location. After connecting through televideo, patient was verified with two unique identifiers. Patient (or authorized legal sales representative door to door) was then informed that this was a Telemedicine visit and being conducted confidentially over secure lines. Methods to assure confidentiality were taken. Patient acknowledged consent and understanding of privacy and security of the Telemedicine visit. The patient agreed to participate. Reason for Visit: Initial Visit Current Concerns: Jer Abreu Jr. is a 81 year old male seen today for a [facility] Telemedicine Provider Visit. Date of last known acute care visit: 07/16/22 with PCP Reason for last known acute care visit: [...] PCP on 07/16/22 for hospital follow up. Today's concerns are: Patient states he has good days and bad days. His breathing prevents him from walking distances. Hemaintains on 3 liters of oxygen chronically. He is using his inhalers and doing breathing treatments 2x a day. It is difficult for him to get out for appointments. He feels the cough has improved. Heis still bringing up occasional light green sputum but it is improving. Pleuritic pain has subsided. No fever/chills. He states over the last month he has had pain in the right side of his face to frontal and maxillary sinuses region with associated ear pain. When he coughs or bends over the pain increases. He has not had much drainage from the sinuses. He does have a history of sinusitis in the past. Appetite is fair, he eats one meal a day and snacks. He admits to feeling full quicker. No changes with bowel or urinary habits. He has approximately 3 loose BM a day. He feels the vancomycin isimproving the diarrhea. He drinks around one alcoholic beverage a day. ROS: See HPI Objective Physical Exam: BP 102/52 (BP Site: Left Arm, BP Position: Sitting, BP Cuff Size: Regular) | Pulse 70 | Temp 36.6 C (97.8 F) | Resp 18 | SpO2 95% Comment: 3 Previous Wts: Wt Readings from Last 5 Encounters: 02/10/22 46.7 kg (103 lb) 01/28/22 46.3 kg (102 lb) 12/16/21 46.7 kg (103 lb) 10/29/21 48.6 kg (107 lb 3.2 oz) 09/23/20 59.4 kg (131 lb) Previous BPs: BP Readings from Last 5 Encounters: 07/16/22 120/58 02/10/22 98/54 01/28/22 92/60 12/16/21 92/54 11/26/21 92/60 Physical Exam Constitutional: General: He is not in acute distress. Comments: Chronically ill appearing HENT: Head: Normocephalic and atraumatic. Right Ear: Tympanic membrane, ear canal and external ear normal. Left Ear: There is impacted cerumen. Eyes: Extraocular Movements: Extraocular movements intact. Conjunctiva/sclera: [...] Refill acetaminophen (TYLENOL) 500 MG Tablet Take 500 [...] [facility] Indications: Inc to 4LPM with ambulation/exertion 1 Each 0 Fluticasone-Salmeterol 250-50 MCG/DOSE Inhalation Aerosol Powder Breath Activated (Advair Diskus) Inhale by mouth 1 Puff in the morning AND 1 Puff before bedtime. Brand necessary. 3 Each 3 Saccharomyces boulardii 250 MG Oral Capsule (Florastor) Take by mouth 250 mg in the morning. Florastor . Famotidine 20 [...] (Vancocin) 1 CAP DAILY UNTIL FECAL TRANSPLANT. (Patient not taking: Reported on 07/16/2022) 90 Capsule 1 Incruse Ellipta 62.5 MCG/ACT Inhalation Aerosol Powder Breath Activated predniSONE 20 MG Oral Tablet (Deltasone) metroNIDAZOLE 500 MG Oral Tablet (Flagyl) 1 Tablet. (Patient not taking: Reported on 07/16/2022) Lidocaine 5 % External Patch (Lidoderm) AT BEDTIME levoFLOXacin 750 MG Oral Tablet (Levaquin) 1 Tablet. Levalbuterol HCl 1.25 MG/3ML Inhalation Nebulization Solution (Xopenex) 3 mL. Ipratropium-Albuterol 20-100 MCG/ACT Inhalation Aerosol Solution (Combivent Respimat) FOUR TIMES DAILY guaiFENesin 200 MG Oral Tablet TAKE 1 TABLET BY MOUTH EVERY 6 HOURS NEEDED FOR CONGESTION FOR 4 DAYS Ventolin HFA 108 (90 Base) MCG/ACT Inhalation Aerosol Solution INHALE BY MOUTH 2 PUFFS EVERY 4 HOURS NEEDED FOR WHEEZING. BRAND NECESSARY 54 g 3 Fluticasone-Salmeterol 250-50 MCG/ACT Inhalation Aerosol Powder Breath Activated (Wixela Inhub)Inhale 1 Puff by mouth in the morning and 1 Puff before bedtime. 60 Each 12 No current facility-administered medications for this visit. Mobility Evaluation: MACH10 Assessment: Assistive Devices Used in the Home: Walker (standard or rollator) Recent Falls: Falls in the last 6 months: No SDoH: DME (Durable Medical Equipment) needs Routine Transportation Urgent Transportation Social Isolation Taylor Ruiz PA-C 10:31 AM *Communication sent to PCP (via [facility] if [facility]), Population Health Care Team members, relevant Specialty Care Physicians* documented in this encounter Plan of Treatment Upcoming Encounters Date Type Specialty Care Team Description 09/10/2022 Telemedicine [facility] Taylor Schwartz PA-C [address] [place] [address] Gaye Jerez, Community Health Hide Inspector And Sorter [address] [place] [address] Health Maintenance Due Date Last Done Comments [...] 10/20/2017 LUNG CANCER SCREENING - USE SMARTSET 75728 Completed 06/23/2017 Pneumococcal Vaccine: 65+ Years Completed [...] hypoxia, on home O2 therapy (HCC)- Primary Anemia, unspecified type Alcohol abuse Alcohol abuse, unspecified Other acute recurrent sinusitis documented in this encounter Care Teams Elementary Teacher Relationship Specialty Start Date End Date Kavya Dillard CRNP [address] [place] [address] PCP - General Nurse Practitioner 12/31/20 documented as of this encounter"
--- OUTSIDE RECORDS SUMMARY | 2023-04-08 23:01 | External Medical Summary | Summary of Care ---
Author Name Unknown Organization [facility] Address [address] [place] [address] Phone [phone] Care Team Providers Care Screener Perfumer Name Role Phone Kavya Dillard GARRETT Primary Care Provider Reason for Visit * Reason Onset Date Comments case management 08/19/2022 Encounter Details Date Type Department Care Team Description 08/19/2022 Information Security Associate Telephone Family Practice [facility] [address] [place] [address] Kayli Horton, fire management specialist Allergies No known active allergiesdocumented [...] 3 LPM continuous oxygen with exertion DME: [facility] Indications: Inc to 4LPM with ambulation/exerti [...] Telephone Encounter - Kayli Horton RN - 08/19/2022 3:22 PM EDT field reimbursement manager progress note S: spoke with patient. He reports he is doing okay other than ongoing R sided sinus pain/pressure. Has pressure in R ear as well. Denies any fever. Aware of Upcoming appointment tomorrow with [facility] provider for sinus symptoms. He received a letter in the mail regarding his advair. He will have his daughter in law reach out regarding this. Gets dyspneic with exertion. Home health comes in once a week. O: phone call follow up A: Alert and oriented. Productive sounding cough heard while on phone. P: Advised to keep upcoming telehealth appt tomorrow with Taylor Arora. Monitor and report worsening symptoms. CM to follow up in approx 2 weeks. documented in this encounter Plan of Treatment Upcoming Encounters Date Type Specialty Care Team Description 08/20/2022 Telemedicine [facility] Taylor Schwartz PA-C [address] [place] [address] Gaye Jerez, Community Health Account Underwriter [address] [place] [address] Health Maintenance Due Date Last [...] 10/20/2017 LUNG CANCER SCREENING - USE SMARTSET [id number] Completed 06/23/2017 Pneumococcal Vaccine: 65+ Years Completed [...] filedocumented as of this encounter Care Teams Screener Perfumer Relationship Specialty Start Date End Date Kavya Dillard CRNP [address] [place] [address] PCP - General Nurse Practitioner 12/31/20 documented as of this encounter
--- OUTSIDE RECORDS SUMMARY | 2023-04-08 23:01 | External Medical Summary | Summary of Care ---
Author Name Unknown Organization [facility] Address [address] [place] [address] Phone [phone] Care Team Providers Care Gasoline Attendant Name Role Phone Kavya Dillardlle GARRETT Primary Care Provider Reason for Visit * Reason Onset Date Comments Appointment 08/06/2022 Encounter Details Date Type Department Care Team Description 08/06/2022 Telephone [facility] [place] [place] [address], [place] [phone] Services, Scheduling [address] [place] [address] Appointment (/) Allergies No known active allergiesdocumented [...] 3 LPM continuous oxygen with exertion DME: [facility] Indications: Inc to 4LPM with [...] * Telephone Encounter - JAH Guzman - 08/06/2022 2:42 PM EST Call to pt to confirm rescheduled kaco appt to 08/20 at 11am, pt agreeable documented in this encounter Plan of Treatment Upcoming Encounters Date Type Specialty Care Team Description 08/19/2022 Office Visit Infectious Disease Channing Tim, [address] [place] [address] 08/20/2022 Telemedicine [facility] Taylor Schwartz PA-C [address] [place] [address] Gaye Jerez, Community Health Results Engineer [address] [place] [address] Health Maintenance Due Date Last Done Comments [...] 10/20/2017 LUNG CANCER SCREENING - USE SMARTSET [id number] Completed 06/23/2017 Pneumococcal Vaccine: 65+ Years Completed [...] filedocumented as of this encounter Care Teams Gasoline Attendant Relationship Specialty Start Date End Date Kavya Dillard CRNP [address] [place] [address] PCP - General Nurse Practitioner 12/31/20 documented as of this encounter
--- OUTSIDE RECORDS SUMMARY | 2023-04-08 23:01 | External Medical Summary | Summary of Care ---
Author Name Unknown Organization [facility] Address [address] [place] [address] Phone [phone] Care Team Providers Care Bodywork Therapist Name Role Phone Kavya Jacinto GARRETT Primary Care Provider Reason for Visit * Reason Onset Date Comments Medication Refill 08/25/2022 Encounter Details Date Type Department Care Team Description 08/25/2022 Refill Family Practice [facility] [address] [place] [address] Kayli Horton RN Allergies No known active allergiesdocumented as of [...] [facility] Indications: Inc to 4LPM with ambulation/exer [...] mouth daily. 30 Each 3 08/25/2022 Active Incruse Ellipta 62.5 MCG/ACT Inhalation Aerosol [...] * Telephone Encounter - GARRETT Root - 08/25/2022 9:38 AM EDT Signed Prescriptions: Disp Refills Incruse Ellipta 62.5 MCG/ACT Inhalation Ae*30 Each3 Sig: Inhale 1 Puff by mouth daily. Authorizing Provider: KAVYA JACINTO * Telephone Encounter - Kayli Horton RN - 08/25/2022 9:12 AM EDT Patients called in asking for a refill of Incruse. Reporting that Daniel is almost out of this. Pended refill if appropriate Kavya? Thank you documented in this encounter Plan of Treatment Upcoming Encounters Date Type Specialty Care Team Description 09/10/2022 Telemedicine [facility] Taylor Schwartz PA-C [address] [place] [address] Gaye Jerez, Community Health Lifestyle Coordinator [address] [place] [address] Health Maintenance Due Date Last [...] 10/20/2017 LUNG CANCER SCREENING - USE SMARTSET [id number] Completed 06/23/2017 Pneumococcal Vaccine: 65+ Years Completed [...] filedocumented as of this encounter Care Teams Bodywork Therapist Relationship Specialty Start Date End Date Kavya Jacinto CRNP [address] [place] [address] PCP - General Nurse Practitioner 12/31/20 documented as of this encounter
--- OUTSIDE RECORDS SUMMARY | 2023-04-08 23:02 | External Medical Summary | Summary of Care ---
Author Name Unknown Organization [place] [address] Care Team Providers Care Duplex Trimmer Name Role Phone Kavya Jacinto Primary Care Provider Reason for Visit * Reason Comments eRx-Medication Refill Encounter Details Date Type Department Care Team Description 07/21/[address] [facility] [address] [facility] [place] [address] Kavya Jacinto CRNP [address] [facility] [place] [address] COPD, group D, by GOLD 2017 classification (HCC) Allergies No known active allergiesdocumented as of this encounter (statuses as of 07/22/2022) Medications Medication Sig Dispensed Refills Start Date [...] continuous oxygen with exertion DME: [facility] Indications: Inc to 4LPM with ambulation/exer tion 1 Each 0 1 Active Fluticasone-Salmete rol 250-50 MCG/DOSE Inhalation Aerosol Powder Breath Activated (Advair Diskus)Indications: SOB (shortness of breath) Inhale by mouth 1 Puff in the morning AND 1 Puff before bedtime. Brand necessary. 3 Each 3 2 Active Saccharomyces boulardii 250 MG Oral Capsule (Florastor) Take by mouth 250 mg in the morning. Florastor . 0 Active Famotidine 20 MG Oral Tablet (Pepcid) Take by mouth 1 Tablet as needed before bedtime for Heartburn. 30 Tablet 11 2 Active Potassium Chloride ER 20 MEQ Oral Tablet Extended Release Take by mouth 1 Tablet in the morning. 30 Tablet 3 2 Active Folic Acid 1 MG Oral [...] FECAL TRANSPLANT. 90 Capsule 1 3 Active Additional Information Patient not taking.Reported on 07/16/2022 Incruse Ellipta 62.5 MCG/ACT Inhalation Aerosol Powder Breath Activated 0 3 Active predniSONE 20 MG Oral Tablet (Deltasone) 0 3 Active metroNIDAZOLE 500 MG Oral Tablet (Flagyl) 1 Tablet. 0 3 Active Lidocaine 5 % External Patch (Lidoderm) AT BEDTIME 0 3 Active levoFLOXacin 750 MG Oral Tablet (Levaquin) 1 Tablet. 0 3 Active Levalbuterol HCl 1.25 MG/3ML Inhalation Nebulization Solution (Xopenex) 3 mL. 0 2 Active Ipratropium-Albuter ol 20-100 MCG/ACT Inhalation Aerosol Solution (Combivent Respimat) FOUR TIMES DAILY 0 2 Active guaiFENesin 200 MG Oral Tablet TAKE 1 TABLET BY MOUTH EVERY 6 HOURS NEEDED FOR CONGESTION FOR 4 DAYS 0 3 Active Ventolin HFA 108 (90 Base) MCG/ACT Inhalation Aerosol SolutionIndications :COPD, group D, by GOLD 2017 classification ([facility]) INHALE BY MOUTH 2 PUFFS EVERY 4 HOURS NEEDED FOR WHEEZING. BRAND NECESSARY 54 g 3 3 Active Ventolin HFA 108 (90 Base) MCG/ACT Inhalation Aerosol SolutionIndications :COPD, group D, by GOLD 2017 classification ([facility]) Inhale by mouth 2 Puffs every 4 hours as needed for Wheezing. Brand necessary 54 g 3 2 07/22/19 23 Discontinued documented as of this encounter (statuses as of 07/22/2022) Active Problems Problem Noted Date Severe protein-calorie [...] as of this encounter (statuses as of 07/22/2022) Resolved Problems Problem Noted Date Resolved Date [...] as of this encounter (statuses as of 07/22/2022) Immunizations Name Administration Dates Next Due Pneumococcal [...] Telephone Encounter - Vernon Wood RPh - 07/22/2022 12:07 PM ESTSigned Prescriptions: Disp Refills Ventolin HFA 108 (90 Base) MCG/ACT Inhalat*54 g 3 Sig: INHALE BYMOUTH 2 PUFFS EVERY 4 HOURS NEEDED FOR WHEEZING. BRAND NECESSARYAuthorizing Provider: KAVYA JACINTO User: VERNON WOOD documented in this encounter Plan of Treatment Upcoming Encounters Date Type Specialty Care Team Description 08/19/2022 Office Visit Infectious Disease Channing Tim, DO [address] [place] [address] Health Maintenance Due Date Last Done Comments [...] 10/20/2017 LUNG CANCER SCREENING - USE SMARTSET [id number] Completed 06/23/2017 Pneumococcal Vaccine: 65+ Years Completed [...] (HCC) documented in this encounter Care Teams Duplex Trimmer Relationship Specialty Start Date End Date Kavya Jacinto CRNP [address] [facility] [place] [address] PCP - General Nurse Practitioner 12/31/20 documented as of this encounter
--- OUTSIDE RECORDS SUMMARY | 2023-04-08 23:02 | External Medical Summary | Summary of Care ---
Author Name Unknown Organization [place] [address] Care Team Providers Care Human Resources Assistant Name Role Phone Gilma Kavya Yoanna TUCKER Primary Care Provider Reason for Visit * Reason Comments case management Encounter Details Date Type Department Care Team Description 07/16/2022 Tafe LecturerOperations Associate Practice [facility] [address] [facility] [place] [address] Kayli Horton, FRANCES Medical home patient encounter* Allergies No known active allergiesdocumented as of this encounter (statuses as of 07/17/2022) Medications Medication Sig Dispensed Refills Start Date [...] 3 LPM continuous oxygen with exertion DME: [facility] Indications: Inc to 4LPM with ambulation/exerti [...] in the morning. Florastor . 0 Active Ventolin HFA 108 (90 Base) MCG/ACT Inhalation Aerosol SolutionIndications: COPD, group D, by GOLD 2017 classification ([facility]) Inhale by mouth 2 Puffs every 4 hours as needed for Wheezing. Brand necessary 54 g 3 01/12/2022 Active Famotidine 20 MG Oral Tablet (Pepcid) Take by mouth 1 Tablet as needed before bedtime for Heartburn. 30 Tablet 11 02/24/2022 Active Potassium Chloride ER 20 MEQ Oral Tablet Extended Release Take by mouth 1 Tablet in the morning. 30 Tablet 3 03/20/2022 Active Folic Acid 1 MG Oral TabletIndications:Ch ronic respiratory failure with hypoxia, on home O2 therapy ([facility]) Take 1 Tablet (1 mg) by [...] CONGESTION FOR 4 DAYS 0 06/26/2022 Active documented as of this encounter (statuses as of 07/17/2022) Active Problems Problem Noted Date Medical home patient encounter 3 Anemia 01/28/2022 [...] at baseline History of tobacco use 10/20/2017 ADVANCE DIRECTIVE INFORMATION 02/01/2008 Overview: No, Advance Directive brochure given to patient. 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 documented as of this encounter (statuses as of 07/17/2022) Resolved Problems Problem Noted Date Resolved Date History of Pseudomonas pneumonia 09/23/2020 12/09/2021 Pneumonia 06/13/2017 10/27/2017 Overview: left basal infiltrate Severe chronic obstructive pulmonary disease 09/23/2018 Overview: severe by ATS criteria. significant response after bronchodilator COPD exacerbation 10/16/2016 05/03/2017 Inflammation of sacroiliac joint 04/24/2005 03/12/2017 Other abnormal glucose 04/23/200505/03/201 7 Overview: glucose 156 Tobacco use disorder 04/22/2005 10/20/2017 SPRAIN SACROILIAC 03/19/2005 05/03/2017 Other specified disorders of rotator cuff syndrome of shoulder and allied disorders 05/23/2004 05/03/2017 Overview: right shoulder Other disorders of vitreous 06/07 Loss of teeth due to trauma, extraction, or periodontal disease 10/27/2017 documented as of this encounter (statuses as of 07/17/2022) Immunizations Name Administration Dates Next Due Pneumococcal [...] Progress Notes * Kayli Horton RN - 07/16/2022 3:28 PM EST Tafe Lecturer Progress Note: Date: 07/16/22 Current Patient Tier: 2 Assessment: Case Management Assessment Does this patient have COVID-19: NO Is this call for a hospital, longterm or rehab facility discharge to home? [facility] Review of Current goals: Connected with patient via clinic visit. Pt. Noted the following: He is feeling a little better. Present are Violeta and son Daniel at his appointment. Patient still having loose stools/diarrhea. He still does not wish to have home health services at this time. Is trying to do home exercises and activity as tolerated. Discussed the following patient-centered CM goals with the patient during this discussion: -Activity: Patient will increase activity or maintain level as tolerated -Status: On Track patient being active as tolerated. -COPD: Achieve successful management of COPD -Status: At Risk recently hospitalization fro pneumonia. Plan for Future Contacts: Plan to follow up in one week to check progress on the following goals/needs pulmonary status. Noting that contacts from the following parties will occur this week: PCP office visit as additional contacts per workflow. Advancement/Closure Plan: CM Plan : Keep patient at current Tier with reassessment per workflow. Patient provided CM contact information and encouraged to call with any changes in condition. Kayli Horton RN Outpatient Case Management documented in this encounter Plan of Treatment Upcoming Encounters Date Type Specialty Care Team Description 08/19/2022 Office Visit Infectious Disease Channing Tim, DO [address] [place] [address] Health Maintenance Due Date Last Done Comments [...] ASSESSMENT COMPLETED IN PAST YEAR FOR COPD 02/10/2023 02/10/2022 DTaP,Tdap,and Td Vaccines (2 - Td or Tdap) 10/21/2027 10/20/2017 LUNG CANCER SCREENING - USE SMARTSET 97958 Completed 06/23/2017 Pneumococcal Vaccine: 65+ Years Completed [...] examination documented in this encounter Care Teams Human Resources Assistant Relationship Specialty Start Date End Date Kavya Dillard CRNP [address] [facility] [place] [address] PCP - General Nurse Practitioner 12/31/20 documented as of this encounter
--- OUTSIDE RECORDS SUMMARY | 2023-04-08 23:02 | External Medical Summary | Summary of Care ---
Author Name Unknown Organization [place] [address] Care Team Providers Care Lead Systems Engineer Name Role Phone Gilma Kavya Yoanna TUCKER Primary Care Provider Reason for Visit * Reason Comments case management Encounter Details Date Type Department Care Team Description 07/23/2022 Stable AttendantMiddle School Guidance Counselor Practice [facility] [address] [facility] [place] [address] Kayli Horton, FRANCES COPD, group D, by GOLD 2017 classification ([facility])* Allergies No known active allergiesdocumented as of this encounter (statuses as of 07/23/2022) Medications Medication Sig Dispensed Refills Start Date [...] 3 LPM continuous oxygen with exertion DME: [facility] Indications: Inc to 4LPM with ambulation/exerti [...] as of this encounter (statuses as of 07/23/2022) Active Problems Problem Noted Date Severe protein-calorie [...] as of this encounter (statuses as of 07/23/2022) Resolved Problems Problem Noted Date Resolved Date [...] as of this encounter (statuses as of 07/23/2022) Immunizations Name Administration Dates Next Due Pneumococcal [...] Progress Notes * Kayli Horton RN - 07/23/2022 3:47 PM EST 1. Follow-up Routine 2. Attempted Phone Call First Attempt 3. Call Unanswered Left Voicemail 4. Plan To attempt Follow-up documented in this encounter Plan of Treatment Upcoming Encounters Date Type Specialty Care Team Description 08/19/2022 Office Visit Infectious Disease Channing Tim, DO [address] [facility] [place] [address] Health Maintenance Due Date Last Done Comments [...] 10/20/2017 LUNG CANCER SCREENING - USE SMARTSET 19517 Completed 06/23/2017 Pneumococcal Vaccine: 65+ Years Completed [...] D, by GOLD 2017 classification (HCC)- Primary documented in this encounter Care Teams Lead Systems Engineer Relationship Specialty Start Date End Date Kavya Dillard CRNP [address] [place] [address] PCP - General Nurse Practitioner 12/31/20 documented as of this encounter
--- OUTSIDE RECORDS SUMMARY | 2023-04-08 23:02 | External Medical Summary | Summary of Care ---
Author Name Unknown Organization [place] [address] Care Team Providers Care Life Skills Instructor Name Role Phone Kavya Dillard Primary Care Provider Encounter Details Date Type Department Care Team Description 08/01/2022 Telephone Family Practice [facility] [address] [facility] [place] [address] Kavya Dillard CRNP [address] [place] [address] Allergies No known active allergiesdocumented as of [...] EST Received a VM from Jennifer at [facility], they can accept the patient and see him on Wednesday. Faxed OV, cover sheet and demographics to their office at #[phone] * Telephone Encounter - Kayli Horton RN - 08/03/2022 8:41 AM EST Called [facility]. Spoke with Jennifer at their referral line. They will review their schedule/availablity and call back to notify if they can or cannot accept patient. * Telephone Encounter - Jossie Zavala LPN - 08/03/2022 8:31 AM EST Called pt to see where he would prefer his home care referral be sent due to fax from [facility]. No answer, LM to return call, sent my g. * Telephone Encounter - GARRETT Root - 08/01/2022 12:39 PM EST Please fax to home health of patient choice, no [facility] Randy, AMBER, GARRETT [facility] * Telephone Encounter - Jossie Zavala LPN - 08/01/2022 12:25 PM EST Received fax from [facility] home care-- Stating the referral they [...] Infectious Disease Channing Tim, DO [address] [facility] [place] [address] Health Maintenance Due Date Last Done Comments [...] 10/20/2017 LUNG CANCER SCREENING - USE SMARTSET 63271 Completed 06/23/2017 Pneumococcal Vaccine: 65+ Years Completed [...] filedocumented as of this encounter Care Teams Life Skills Instructor Relationship Specialty Start Date End Date Kavya Dillard CRNP [address] [place] [address] PCP - General Nurse Practitioner 12/31/20 documented as of this encounter
--- OUTSIDE RECORDS SUMMARY | 2023-04-08 23:02 | External Medical Summary | Summary of Care ---
Author Name Unknown Organization [place] [address] Care Team Providers Care Sales Promotion Officer Name Role Phone Kavay Dillard Yoanna TUCKER Primary Care Provider Reason for Visit * Reason Onset Date Comments Appointment 07/29/2022 Encounter Details Date Type Department Care Team Description 07/29/2022 Telephone [facility] [place] [place] [address] [place] [address] Services, Scheduling [address] [place] [address] Appointment (/) Allergies No known active allergiesdocumented as of this encounter (statuses as of 07/29/2022) Medications Medication Sig Dispensed Refills Start Date [...] LPM continuous oxygen with exertion DME: [facility] Indications: Inc to 4LPM with [...] as of this encounter (statuses as of 07/29/2022) Active Problems Problem Noted Date Severe protein-calorie [...] as of this encounter (statuses as of 07/29/2022) Resolved Problems Problem Noted Date Resolved Date [...] as of this encounter (statuses as of 07/29/2022) Immunizations Name Administration Dates Next Due Pneumococcal [...] * Telephone Encounter - JAH Guzman - 07/29/2022 10:37 AM EST Call to pt to schedule kaco telemed- spouse declined appt b/c no connectivity and she said a nurse as coming today to check out pt, msg to [facility] provider of the same documented in this encounter Plan of Treatment Upcoming Encounters Date Type Specialty Care Team Description 08/19/2022 Office Visit Infectious Disease Channing Tim, DO [address] [facility] [place] [address] Health Maintenance Due Date Last Done Comments [...] 10/20/2017 LUNG CANCER SCREENING - USE SMARTSET 20029 Completed 06/23/2017 Pneumococcal Vaccine: 65+ Years Completed [...] filedocumented as of this encounter Care Teams Sales Promotion Officer Relationship Specialty Start Date End Date Kavya Dillard CRNP [facility] [place] [address] PCP - General Nurse Practitioner 12/31/20 documented as of this encounter
--- OUTSIDE RECORDS SUMMARY | 2023-04-08 23:02 | External Medical Summary | Summary of Care ---
Author Name Unknown Organization [place] [address] Care Team Providers Care Medical Staff Specialist Name Role Phone Kavya Dillard Primary Care Provider Encounter Details Date Type Department Care Team Description 08/01/2022 Telephone Family Practice [facility] [address] [facility] [place] [address] Kavya Dillard CRNP [address] [facility] [address] Allergies No known active allergiesdocumented as of [...] 3 LPM continuous oxygen with exertion DME: [facility] Indications: Inc to 4LPM with [...] encounter Miscellaneous Notes * Telephone Encounter - Lani North LPN - 08/03/2022 1:44 PM EST Patient is calling. Would like a call from the pillowcase cutter. * Telephone Encounter - Kayli Horton RN - 08/03/2022 10:54 AM EST Received a VM from Jennifer at [facility], they can accept the patient and see him on Wednesday. Faxed OV, cover sheet and demographics to their office at #[phone] * Telephone Encounter - Kayli Horton RN - 08/03/2022 8:41 AM EST Called [facility] HH. Spoke with Jennifer at their referral line. They will review their schedule/availablity and call back to notify if they can or cannot accept patient. * Telephone Encounter - Jossie Zavala LPN - 08/03/2022 8:31 AM EST Called pt to see where he would prefer his home care referral be sent due to fax from [facility]. No answer, LM to return call, sent my g. * Telephone Encounter - GARRETT Root - 08/01/2022 12:39 PM EST Please fax to home health of patient choice, no [facility] Randy, AMBER, GARRETT [facility] * Telephone Encounter - Jossie Zavala LPN - 08/01/2022 12:25 PM EST Received fax from [facility] home care-- Stating the referral they received yesterday was denied due to "We are unable to take this referral at this time due to audi census in the area". Please advise next steps. (sent to case mgmt also) documented in this encounter Plan of Treatment Upcoming Encounters Date Type Specialty Care Team Description 08/19/2022 Office Visit Infectious Disease Channing Tim, DO [address] [facility] [place] [address] Health Maintenance Due Date Last Done Comments [...] 10/20/2017 LUNG CANCER SCREENING - USE SMARTSET 78654 Completed 06/23/2017 Pneumococcal Vaccine: 65+ Years Completed [...] filedocumented as of this encounter Care Teams Medical Staff Specialist Relationship Specialty Start Date End Date Kavya Dillard CRNP [address] [place] [address] PCP - General Nurse Practitioner 12/31/20 documented as of this encounter
--- OUTSIDE RECORDS SUMMARY | 2023-04-08 23:02 | External Medical Summary ---
Author Name Unknown Address Unknown Organization K09:[facility] [place] [address] Laboratory Report Ordering Provider Test Date Status FAUSTINA REIS 07/08/2022 05:30:00 Final Observation Date Value Abnormality Reference (Units ) Status BUN 07/08/2022 05:30:00 24 Above high normal 6-20 (mg/dL) Final Creatinine 07/08/2022 05:30:00 1.0 0.6-1.2 (mg/dL) Final Glomerular filtration rate/1.73 sq M.predicted [Volume Rate/Area] in Serum, Plasma or Blood by Creatinine-based formula (CKD-EPI) 07/08/2022 05:30:00 80 >=60 (mL/min) Final eGFR is calculated based on the CKD-EPI 2020 equation SODIUM 07/08/2022 05:30:00 143 135-146 (m mol/L) Final Potassium 07/08/2022 05:30:00 3.9 3.5-5.1 (m mol/L) Final Cl 07/08/2022 05:30:00 106 98-107 (mm ol/L) Final CO2 07/08/2022 05:30:00 29 22-32 (mmo l/L) Final Anion gap 07/08/2022 05:30:00 8 7-15 (mmol /L) Final Glucose 07/08/2022 05:30:00 72 70-120 (mg /dL) Final Calcium 07/08/2022 05:30:00 8.7 8.4-10.2 ( mg/dL) Final Performing Location [facility] [place] [address]
--- OUTSIDE RECORDS SUMMARY | 2023-04-08 23:02 | External Medical Summary | Summary of Care ---
Author Name Unknown Organization [place] [address] Care Team Providers Care Manager Medicaid Name Role Phone Kavya Dillard Yoanna TUCKER Primary Care Provider Reason for Visit * Reason Onset Date Comments Appointment 08/03/2022 Encounter Details Date Type Department Care Team Description 08/03/2022 Telephone [facility] [place] [place] [address] [place] [address] Services, Scheduling [address] [place] [address] Appointment (/) Allergies No known active allergiesdocumented [...] 3 LPM continuous oxygen with exertion DME: [facility] Indications: Inc to 4LPM with ambulation/exerti [...] 08/03/2022) Immunizations Name Administration Dates Next Due Pneumococcal [...] * Telephone Encounter - JAH Guzman - 08/03/2022 2:04 PM EST Call to spouse and confirmed rescheduled kaco return telemd to 08/11 at 11am, spouse agreeable documented in this encounter Plan of Treatment Upcoming Encounters Date Type Specialty Care Team Description 08/11/2022 Telemedicine [facility] Taylor Schwartz PA-C [address] [place] [address] Gaye Jerez, Community Health Learning Design Specialist [address] [place] [address] 08/19/2022 Office Visit Infectious Disease Channing Tim, [address], [place] [address] Health Maintenance Due Date Last Done Comments [...] 10/20/2017 LUNG CANCER SCREENING - USE SMARTSET 24126 Completed 06/23/2017 Pneumococcal Vaccine: 65+ Years Completed [...] filedocumented as of this encounter Care Teams Manager Medicaid Relationship Specialty Start Date End Date Kavya Dillard CRNP [address] [place] [address] PCP - General Nurse Practitioner 12/31/20 documented as of this encounter
--- OUTSIDE RECORDS SUMMARY | 2023-04-08 23:02 | External Medical Summary | Summary of Care ---
Author Name Unknown Organization [place] [address] Care Team Providers Care Associate Store Director Name Role Phone Kavya Dillard Primary Care Provider Reason for Referral * Evaluate & Treat - Unlimited Visits (Within 3 days (urgent)) - Authorized Specialty Diagnoses / Procedures Referred By Nicole cisse Referred To Contact HOME CARE / Home Care Diagnoses Chronic respiratory failure with hypoxia, on home O2 therapy (HCC) COPD, group D, by GOLD 2017 classification (HCC) Kavya Dillard CRNP [address] [place] [address] Referral ID Status Reason Start Date Expiration Date Visits Requested Visits Authorized [id number] Authorized Specialty Services Required 07/31/2022 999 999 Question Answer Referral Priority Within 3 days (urgent) Comments Documentation of Kzpq-[id number] Encounter Addendum Patient Name: Jer Abreu I certify that this patient is under my care and that I, or a nurse practitioner or physician's nurseryman assistant working with me, had a [id number] encounter that meets the physician [id number]-dm-[id number] encounter requirements with this patient on: 07/16/22 The encounter with the patient was in whole, or in part, for the following medical condition, which is the primary reason for home health care (List medical condition): Convalescence from acute illness I certify that, based on my findings, the following services are medically necessary home health services: Nursing To provide the following care/treatments: (All hospitalists not following the patient after discharge should complete this section): Educate proper use of nebulizer and inhaler medications for COPD. Deconditioned from recent hospitalization. Patient does not want physical therapy, but agreeable to alf visits. Primary Care Physician to follow home care plan of care after discharge: GARRETT Broderick My clinical findings support the need for the above services because: Acute exacerbation of COPD Further, I certify that my clinical findings support that this patient is homebound (i.e. Absences from home require considerable and taxing effort and are for medical reasons or pentecostal services or infrequently or of short duration when for other reason) because: Patient is deconditioned from Recent hospitalization Physician Signature: Date of Signature: Physician Printed Name: GARRETT Broderick Reason for Visit * Reason Onset Date Comments case management 07/31/2022 Encounter Details Date Type Department Care Team Description 07/31/2022 Sales Representative Education Courses Telephone Family Practice [address] [place] [address] Kayli Horton, case management manager Allergies No known active allergiesdocumented [...] LPM continuous oxygen with exertion DME: [facility] Indications: Inc to 4LPM [...] Telephone Encounter - Kayli Horton RN - 07/31/2022 4:29 PM EST Faxed order to [facility]. Sent teams message to Dong Elizondo to re-schedule KACO video visit * Telephone Encounter - GARRETT Root - 07/31/2022 3:55 PM EST Signed home health order Randy, AMBER, GARRETT [facility] * Telephone Encounter - Kayli Horton RN - 07/31/2022 3:29 PM EST Case Management Progress Note S: spoke with patient and his , Violeta. He still c/o sinus pressure on the R cheek and above his R eye. No fevers. Reports not taking nebulizer treatments, Had thought he shouldn't while on inhalers, also not using trelegy, but using Incruse. Reports thought when called for [facility]ur televisit, was supposed to have a nurse. Is taking florastor, not having as much diarrhea. O: phone call follow up A: Alert and oriented P: Instructed to use nebulizer every 4 hours. Monitor and report worsening symptoms. Clarified KACOhome/televisit. Agreeable to set this up. Also Discussed HH referral, patient and spouse agreeable to intermediate visits. Spoke with PCP who agrees with HH referral as well. documented in this encounter Plan of Treatment Upcoming Encounters Date Type Specialty Care Team Description 08/19/2022 Office Visit Infectious Disease Channing Tim, DO [address] [place] [address] Scheduled Referrals Name Type Priority Associated Diagnoses Orde r Schedule HOME HEALTH REFERRAL OP Referral Within 3 days (urgent) Chronic respiratory failure with hypoxia, on home O2 therapy (HCC) COPD, group D, by GOLD 2017 classification (HCC) Ordered: 07/31/2022 Health Maintenance Due Date Last Done Comments [...] 10/20/2017 LUNG CANCER SCREENING - USE SMARTSET 84144 Completed 06/23/2017 Pneumococcal Vaccine: 65+ Years Completed [...] hypoxia, on home O2 therapy (HCC)- Primary COPD, group D, by GOLD 2017 classification (HCC) documented in this encounter Care Teams Associate Store Director Relationship Specialty Start Date End Date Kavya Dillard CRNP [address] [place] [address] PCP - General Nurse Practitioner 12/31/20 documented as of this encounter
--- OUTSIDE RECORDS SUMMARY | 2023-04-08 23:02 | External Medical Summary | Summary of Care ---
Author Name Unknown Organization [place] [address] Care Team Providers Care Microsoft Bi Architect Name Role Phone Kavya Dillard Primary Care Provider Encounter Details Date Type Department Care Team Description 08/01/2022 Telephone Family Practice [facility] [address] [facility] [place] [address] Kavya Dillard CRNP [address] [place] [address] Allergies No known active allergiesdocumented as of [...] LPM continuous oxygen with exertion DME: [facility] Indications: Inc to 4LPM with ambulation/exerti [...] RN - 08/03/2022 8:41 AM EST Called [facility]. Spoke with Jennifer at their referral line. They will review their schedule/availablity and call back to notify if they can or cannot accept patient. * Telephone Encounter - Jossie Zavala LPN - 08/03/2022 8:31 AM EST Called pt to see where he would prefer his home care referral be sent due to fax from [facility]. No answer, LM to return call, sent my g. * Telephone Encounter - GARRETT Root - 08/01/2022 12:39 PM EST Please fax to home health of patient choice, no [facility] Randy, AMBER, GARRETT [facility] * Telephone Encounter - Jossie Zavala LPN - 08/01/2022 12:25 PM EST Received fax from [facility] home care-- Stating the referral they [...] Infectious Disease Channing Tim, DO [address] [place] [address] Health Maintenance Due Date Last Done Comments [...] 10/20/2017 LUNG CANCER SCREENING - USE SMARTSET 52749 Completed 06/23/2017 Pneumococcal Vaccine: 65+ Years Completed [...] filedocumented as of this encounter Care Teams Microsoft Bi Architect Relationship Specialty Start Date End Date Kavya Dillard CRNP [address] [place] [address] PCP - General Nurse Practitioner 12/31/20 documented as of this encounter
--- OUTSIDE RECORDS SUMMARY | 2023-04-08 23:02 | External Medical Summary | Summary of Care ---
Author Name Unknown Organization [place] [address] Care Team Providers Care Analytics Developer Name Role Phone Kavya Dillard Primary Care Provider Reason for Visit * Reason Comments Hospital Follow-Up Encounter Details Date Type Department Care Team Description 07/16/2022 Office Visit Family Practice [facility] [address] [facility] [place] [id number] Kavya Dillard CRNP 132 [facility] [place] [address] Pneumonia of both lower lobes due to infectious organism*; Chronic respiratory failure with hypoxia, on home O2 therapy (HCC); COPD, group D, by GOLD 2017 classification (HCC); Pulmonary HTN (HCC); Counseling regarding end of life decision making; Recurrent colitis due to Clostridioides difficile; Severe protein-calorie malnutrition (HCC); Persistent atrial fibrillation (HCC) Allergies No known active allergiesdocumented as [...] LPM continuous oxygen with exertion DME: [facility] Indications: Inc to 4LPM with ambulation/exer [...] :COPD, group D, by GOLD 2017 classification ([facility]) Inhale by mouth 2 Puffs every 4 hours as needed for Wheezing. Brand necessary 54 g 3 2 Active Famotidine 20 MG Oral Tablet (Pepcid) Take by mouth 1 Tablet as needed before bedtime for Heartburn. 30 Tablet 11 2 Active Potassium Chloride ER 20 MEQ Oral Tablet Extended Release Take by mouth 1 Tablet in the morning. 30 Tablet 3 2 Active Folic Acid 1 MG Oral TabletIndications:C hronic respiratory failure with hypoxia, on home O2 therapy ([facility]) Take 1 Tablet (1 mg) by mouth [...] CONGESTION FOR 4 DAYS 0 3 Active Spiriva Respimat 1.25 MCG/ACT Inhalation Aerosol Solution (Tiotropium [place] Monohydrate) INHALE 2 PUFFS BY MOUTH EVERY DAY 12 g 1 2 07/16/19 23 Discontinued metroNIDAZOLE 500 MG Oral Tablet (Flagyl) 0 3 07/16/19 23 Discontinued levoFLOXacin 750 MG Oral Tablet (Levaquin) 0 3 07/16/19 23 Discontinued guaiFENesin 200 MG Oral Tablet 1 Tablet. 0 3 07/16/19 23 Discontinued documented as of this encounter (statuses as of 07/17/2022) Active Problems Problem Noted Date Severe protein-calorie [...] Reading Time Taken Comments Blood Pressure 120/58 07/16/2022 3:11 PM EST Pulse 92 07/16/2022 3:11 PM EST Temperature 36.8 C (98.2 F) 07/16/2022 3:11 PM ES T Respiratory Rate - - Oxygen Saturation 98% 07/16/2022 3:11 PM EST Inhaled Oxygen Concentration - - Weight - - Height - - Body Mass Index - - documented in this encounter Progress Notes * GARRETT Root - 07/16/2022 3:18 PM EST Hospital Follow up Family Medicine Visit CC: Chief Complaint Patient presents with Hospital Follow-Up History of Present Illness: Jer Abreu Jr. is a 81 year old male presenting with his son today. For hospital follow up. Hospitalized 06/20/2022-06/26/2022- Gram negative PNA and copd exacerbation- TREATED WITH LEVAQUIN AND PREDNISONE Admitted 07/02/2022-07/07/2022: pna treated with IV abx.Culture positive for pseudomonas. Treated with hypertonsic saline nebs. Social History Socioeconomic History Marital status: Spouse name: Not on file Number of children: 6 Years of education: Not on file Highest education level: Not on file Occupational History Not on file Tobacco Use Smoking status: Former Packs/day: 2.00 Years: 59.00 Pack years: 118.00 Types: Cigarettes Start date: 1956 Quit date: 04/07/2016 Years since quittin.2 Smokeless tobacco: Never Tobacco comments: started age 16 Vaping Use Vaping Use: Never used Substance and Sexual Activity Alcohol use: Yes Comment: 3-4 beers per day. Was drinking 8 per day. Drug use: No Sexual activity: Yes Partners: Female Other Topics Concern Not on file Social History Narrative Not on file Social Determinants of Health Financial Resource Strain: Not on file Food Insecurity: Not on file Transportation Needs: Not on file Physical Activity: Not on file Stress: Not on file Social Connections: Not on file Intimate Partner Violence: Not on file Housing Stability: Not on file PMH: Past Medical History: Diagnosis Date Acute exacerbation of COPD with asthma ([facility]) 04/23/2017 [facility] Arthritis Edentulous Gastroesophageal reflux disease with esophagitis Herpes zoster 01/11/2019 right neck and scalp Inflammation of sacroiliac joint ([facility]) 04/24/2005 Loss of teeth due to trauma, extraction, or periodontal disease Other disorders of vitreous 12/2000 Posterior vitreous detachment OS Other specified disorders of rotator cuff syndrome of shoulder and allied disorders 05/2004 right shoulder Pneumonia 06/13/2017 left basal infiltrate Pneumonia due to Pseudomonas ([facility]) 05/20/2017 Severe chronic obstructive pulmonary disease ([facility]) 10/28/2016 severe by ATS criteria. significant response [...] REMOVE CATARACT, INSERT LENS PROSTH Right 06/12/2019 [facility] REMOVE CATARACT, INSERT LENS PROSTH Left 06/26/2019 [facility] Outpatient Medications Marked as Taking for the 07/16/22 encounter (Office Visit) with GARRETT Root Medication Sig guaiFENesin 200 MG Oral Tablet TAKE 1 TABLET BY MOUTH EVERY 6 HOURS NEEDED FOR CONGESTION FOR 4 DAYS Incruse Ellipta 62.5 MCG/ACT Inhalation Aerosol Powder Breath Activated Ipratropium-Albuterol 20-100 MCG/ACT Inhalation Aerosol Solution (Combivent Respimat) FOUR TIMES DAILY Levalbuterol HCl 1.25 MG/3ML Inhalation Nebulization Solution (Xopenex) 3 mL. levoFLOXacin 750 MG Oral Tablet (Levaquin) 1 Tablet. Lidocaine 5 % External Patch (Lidoderm) AT BEDTIME predniSONE 20 MG Oral Tablet (Deltasone) Thiamine HCl 100 MG Oral Tablet (vitamin B-1) TAKE 1 TABLET BY MOUTH EVERY DAY Roflumilast 500 MCG Oral Tablet (Daliresp) Take 1 Tablet (500 mcg) by mouth in the morning. Folic Acid 1 MG Oral Tablet Take 1 Tablet (1 mg) by mouth in the morning. Potassium Chloride ER 20 MEQ Oral Tablet Extended Release Take by mouth 1 Tablet in the morning. Famotidine 20 MG Oral Tablet (Pepcid) Take by mouth 1 Tablet as needed before bedtime for Heartburn. Spiriva Respimat 1.25 MCG/ACT Inhalation Aerosol Solution (Tiotropium [place] Monohydrate) INHALE 2 PUFFS BY MOUTH EVERY DAY (Patient taking differently: Patient has been taking 2 x day? Instructed spouse only to be 1 x day.) oxygen IN GAS 2.5 lpm at rest 3 LPM continuous oxygen with exertion DME: [facility] Indications: Inc to 4LPM with ambulation/exertion Multiple Vitamins-Minerals (MULTIVITAMIN ADULTS) TABS Take by mouth daily. Review of patient's allergies indicates: No Known Allergies Most Recent Immunizations Administered Date(s) Administered PPD 04/22/2005 Pneumococcal Conjugate Vacc, 13 Valent (Prevnar) 10/20/2017 Pneumococcal Polysaccharide PPV23 (Pneumovax) 04/27/2017 Seasonal Influenza, Quadrivalent, No Preserve, 6 Mons & Above, IM 02/28/2018 Seasonal Influenza, Split, IIV3, With Preserve, Inj 03/12/2009 Seasonal Influenza, Trivalent, Adjuvanted, 65+ yrs 04/12/2019 TDAP (age 10 and older)(Boostrix) 10/20/2017 Review of Systems: Review of Systems Constitutional: Negative for fatigue and fever. Respiratory: Positive for cough, chest tightness and shortness of breath. Negative for wheezing. Cardiovascular: Negative for chest pain, palpitations and leg swelling. Gastrointestinal: Positive for diarrhea. Negative for abdominal pain and vomiting. Physical Exam: BP 120/58 (BP Site: Left Arm, BP Position: Sitting, BP Cuff Size: Regular) | Pulse 92 | Temp 36.8 C (98.2 F) (Tympanic) | SpO2 98% Physical Exam Constitutional: Comments: Cachectic Seated in wheelchair Nasal cannula HENT: Head: Normocephalic. Cardiovascular: Rate and Rhythm: Normal rate. Pulmonary: Effort: Pulmonary effort is normal. Breath sounds: Decreased breath sounds present. Abdominal: General: Bowel sounds are normal. Palpations: Abdomen is soft. Tenderness: There is no abdominal tenderness. Neurological: Mental Status: He is alert and oriented to person, place, and time. Psychiatric: Attention and Perception: Attention normal. Mood and Affect: Mood normal. Speech: Speech normal. Behavior: Behavior normal. Behavior is cooperative. Thought Content: Thought content normal. Cognition and Memory: Cognition and memory normal. Judgment: Judgment normal. Assessment and Plan: 1. Pneumonia of both lower lobes due to infectious organism Due to pseudomonas S/p 2 hospital inpatient stay with treatment with multiple IV abx Tested positve for pseudomonas as he is colonized from previous infection - XR CHEST 2 VIEWS; Future Finish levaquin 2. Chronic respiratory failure with hypoxia, on home O2 therapy ([facility]) 2-3 [address] wy 3. COPD, group D, by GOLD 2017 classification ([facility]) With recurrent exacerbation Continue incruse Continue nebulized albuterol/duoneb Continue advair 4. Pulmonary HTN ([facility]) 5. Counseling regarding end of life decision making Patient, and son and I had a open Discussion regarding lung disease/progression what his life expectancy is at this point. It is progressing and worsening He states he is not ready for hospice at this time but does not want CPR if he has cardiac arrest POLST forms- patient has at home 6. Recurrent colitis due to Clostridioides difficile He is on vancomycin I have advised the patient to call our office incase of any worsening or new symptoms. I spent a total of 30-39 minutes (exact time 35 mins) on the date of service in preparation, delivery, and documentation of the care provided to Jer Abreu Jr. excluding any time spent in the performance of separately billed services. Randy, AMBER, GARRETT [facility] documented in this encounter Nursing Notes * Shannan Posey LPN - 07/16/2022 3:11 PM EST The patient has been properly identified by confirmation of name and date of . Chief Complaint Patient presents with Hospital Follow-Up documented in this encounter Plan of Treatment Upcoming Encounters Date Type Specialty Care Team Description 08/19/2022 Office Visit Infectious Disease Channing Tim, DO [address] [place] [address] Scheduled Orders Name Type Priority Associated Diagnoses Orde r Schedule XR CHEST 2 VIEWS Medical Imaging Routine Pneumonia of both lower lobes due to infectious organism Expected: 08/04/2022, Expires: 08/14/2023 Health Maintenance Due Date Last Done Comments [...] 10/20/2017 LUNG CANCER SCREENING - USE SMARTSET 24438 Completed 06/23/2017 Pneumococcal Vaccine: 65+ Years Completed [...] as of this encounter Visit Diagnoses Diagnosis Pneumonia of both lower lobes due to infectious organism- Primary Chronic respiratory failure with hypoxia, on home O2 therapy (HCC) COPD, group D, by GOLD 2017 classification (HCC) Pulmonary HTN (HCC) Other chronic pulmonary heart diseases Counseling regarding end of life decision making Other specified counseling Recurrent colitis due to Clostridioides difficile Severe protein-calorie malnutrition (HCC) Other severe protein-calorie malnutrition Persistent atrial fibrillation (HCC) Atrial fibrillation documented in this encounter Care Teams Analytics Developer Relationship Specialty Start Date End Date Kavya Dillard CRNP [address] [facility] [place] [address] PCP - General Nurse Practitioner 12/31/20 documented as of this encounter"
--- OUTSIDE RECORDS SUMMARY | 2023-04-08 23:02 | External Medical Summary | Summary of Care ---
Author Name Unknown Organization [place] [address] Care Team Providers Care Eating Disorder Psychologist Name Role Phone Kavya Dillard Primary Care Provider Encounter Details Date Type Department Care Team Description 08/01/2022 Telephone Family Practice [facility] [address] [facility] [place] [address] Kavya Dillard CRNP [address] [facility] [place] [address] Allergies No known active allergiesdocumented as of [...] 3 LPM continuous oxygen with exertion DME: [facility] Indications: Inc to 4LPM with [...] referral be sent due to fax from [facility]. No answer, LM to return call, sent my g. * Telephone Encounter - GARRETT Root - 08/01/2022 12:39 PM EST Please fax to home health of patient choice, no [facility] Randy, AMBER, GARRETT [facility] * Telephone Encounter - Jossie Zavala LPN - 08/01/2022 12:25 PM EST Received fax from [facility] home care-- Stating the referral they [...] Infectious Disease Channing Tim, DO [address] [place] [address] Health Maintenance Due Date Last Done Comments [...] 10/20/2017 LUNG CANCER SCREENING - USE SMARTSET [id number] Completed 06/23/2017 Pneumococcal Vaccine: 65+ Years Completed [...] filedocumented as of this encounter Care Teams Eating Disorder Psychologist Relationship Specialty Start Date End Date Kavya Dillard CRNP [address] [place] [address] PCP - General Nurse Practitioner 12/31/20 documented as of this encounter
--- OUTSIDE RECORDS SUMMARY | 2023-04-08 23:03 | External Medical Summary | Summary of Care ---
Author Name Unknown Organization [place] [address] Care Team Providers Care Odd Shoe Examiner Name Role Phone Kavya Dillard Primary Care Provider Reason for Visit * Reason Onset Date Comments Med Request 05/18/2022 Pharm alternativ e Encounter Details Date Type Department Care Team Description 05/18/2022 Telephone Family Practice [facility] [address] Kavya Dillard CRNP [address] [place] [address] Med Request (Pharm alternative) Allergies No known active allergiesdocumented as of this encounter (statuses as of 05/20/2022) Medications Medication Sig Dispensed Refills Start Date [...] 3 LPM continuous oxygen with exertion DME: [facility] Indications: Inc to 4LPM with ambulation/exerti on 1 Each 0 04/01/2021 Active Fluticasone-Salmeter ol 250-50 MCG/DOSE Inhalation Aerosol Powder Breath Activated (Advair Diskus)Indications:S OB (shortness of breath) Inhale by mouth 1 Puff in the morning AND 1 Puff before bedtime. Brand necessary. 3 Each 3 09/10/2021 Active Spiriva Respimat 1.25 MCG/ACT Inhalation Aerosol Solution (Tiotropium [place] Monohydrate) INHALE 2 PUFFS BY MOUTH EVERY DAY 12 g 1 09/20/2021 Active Additional Information Patient taking differently: Patient has been taking 2 x day? Instructed spouse only to be 1 x day., Informant: Spouse, Reported on 12/23/2021 Thiamine HCl 100 MG Oral Tablet (vitamin B-1) TAKE 1 TABLET BY MOUTH EVERY DAY 90 Tablet 3 09/22/2021 Active Vitamin B-12 100 MCG Oral Tablet (vitamin B-12) TAKE 100 MCG BY MOUTH DAILY. 90 Tablet 3 09/22/2021 Active Omeprazole 40 MG Oral Capsule Delayed Release (PriLOSEC) TAKE 1 CAPSULE BY MOUTH DAILY. 1 HOUR BEFORE THE FIRST MEAL OF THE DAY 90 Capsule 1 12/23/2021 Active Saccharomyces boulardii 250 MG Oral Capsule (Florastor) Take by mouth 250 mg in the morning. Florastor . 0 Active Ventolin HFA 108 (90 Base) MCG/ACT Inhalation Aerosol SolutionIndications: COPD, group D, by GOLD 2017 classification ([facility]) Inhale by mouth 2 Puffs every 4 hours as needed for Wheezing. Brand necessary 54 g 3 01/12/2022 Active Vancomycin HCl 125 MG Oral Capsule (Vancocin) 1 tab by mouth four times daily x 14 days, 1 tab twice daily x 7 days, 1 tab daily until fecal transplant 90 Capsule 1 02/20/2022 Active Famotidine 20 MG Oral Tablet (Pepcid) Take by mouth 1 Tablet as needed before bedtime for Heartburn. 30 Tablet 11 02/24/2022 Active Potassium Chloride ER 20 MEQ Oral Tablet Extended Release Take by mouth 1 Tablet in the morning. 30 Tablet 3 03/20/2022 Active Folic Acid 1 MG Oral TabletIndications:Ch ronic respiratory failure with hypoxia, on home O2 therapy ([facility]) Take 1 Tablet (1 mg) by mouth in the morning. 90 Tablet 3 04/14/2022 Active Roflumilast 500 MCG Oral Tablet (Daliresp) Take 1 Tablet (500 mcg) by mouth in the morning. 180 Tablet 4 05/15/2022 Active documented as of this encounter (statuses as of 05/20/2022) Active Problems Problem Noted Date Anemia 01/28/2022 Recurrent colitis due to Clostridioides [...] as of this encounter (statuses as of 05/20/2022) Resolved Problems Problem Noted Date Resolved Date [...] as of this encounter (statuses as of 05/20/2022) Immunizations Name Administration Dates Next Due Pneumococcal [...] encounter Miscellaneous Notes * Telephone Encounter - Shannan Posey LPN - 05/19/2022 4:23 PM EST Pt receives medication through pharmacy assistance program. No prior auth needed * Telephone Encounter - JAH Wadsworth - 05/18/2022 1:12 PM EST [facility] Pharmacy is requesting alternative for Roflumilast, "please send new script for PACE to cover" documented in this encounter Plan of Treatment Upcoming Encounters Date Type Specialty Care Team Description 05/27/2022 Office Visit Infectious Disease Liz Summers MD [address] [facility] [place] [address] Health Maintenance Due Date Last Done Comments Hepatitis B (1 of 3 - 3-dose series) 1942 Hepatitis C Screening 1960 Zoster Vaccines (1 of 2) 1992 *ADVANCE DIRECTIVE NOT ON FILE 09/25/2020 Depression Screening, Annual for Pts 12 and Over 11/12/2020 11/13/2019 COVID-19 Vaccine (3 - Booster for Moderna series) 03/21/2021 01/24/2021, 10/07/2020 Influenza Vaccine (FLU shot) (#1) 2022 02/25/2021, 04/12/2019, 02/28/2018, Additional history exists O2 ASSESSMENT COMPLETED IN PAST YEAR FOR COPD 02/10/2023 02/10/2022 DTaP,Tdap,and Td Vaccines (2 - Td or Tdap) 10/21/2027 10/20/2017 LUNG CANCER SCREENING - USE SMARTSET [id number] Completed 06/23/2017 Pneumococcal Vaccine: 65+ Years Completed 10/20/2017, 04/27/2017 GARDASIL-HPV IMMUNIZATION SERIES Aged Out No longer eligible based on patient's age to complete this topic MENINGOCOCCAL (MENACTRA/MENVEO) Aged Out No longer eligible based on patient's age to complete this topic documented as of this encounter Medical Devices Not on filedocumented as of this encounter Care Teams Odd Shoe Examiner Relationship Specialty Start Date End Date Kavya Dillard CRNP [address] [place] [address] PCP - General Nurse Practitioner 12/31/20 documented as of this encounter
--- OUTSIDE RECORDS SUMMARY | 2023-04-08 23:03 | External Medical Summary | Summary of Care ---
Author Name Unknown Organization [place] [address] Care Team Providers Care Supervisor Loading Name Role Phone Kavya Dillard Primary Care Provider Reason for Visit * Reason Comments eRx-Medication Refill Encounter Details Date Type Department Care Team Description 06/27/2022 Refill Gastroenterology, [facility] [address] [facility] [place] [address] Elías Jennings CRNP 132 [facility] [place] [address] Allergies No known active allergiesdocumented as of this encounter (statuses as of 06/29/2022) Medications Medication Sig Dispensed Refills Start Date [...] [facility] Ind[facility]: Inc to 4LPM with ambulation/exer tion 1 Each 0 1 Active Fluticasone-Salmete rol 250-50 MCG/DOSE Inhalation Aerosol Powder Breath Activated (Advair Diskus)Indications: SOB (shortness of breath) Inhale by mouth 1 Puff in the morning AND 1 Puff before bedtime. Brand necessary. 3 Each 3 2 Active Spiriva Respimat 1.25 MCG/ACT Inhalation Aerosol Solution (Tiotropium [place] Monohydrate) INHALE 2 PUFFS BY MOUTH EVERY DAY 12 g 1 2 Active Additional Information Patient taking differently: Patient has been taking 2 x day? Instructed spouse only to be 1 x day., Informant: Spouse, Reported on 12/23/2021 Thiamine HCl 100 MG Oral Tablet (vitamin B-1) TAKE 1 TABLET BY MOUTH EVERY DAY 90 Tablet 3 2 Active Saccharomyces boulardii 250 MG Oral Capsule (Florastor) Take by mouth 250 mg in the morning. Florastor . 0 Active Ventolin HFA 108 (90 Base) MCG/ACT Inhalation Aerosol SolutionIndications :COPD, group D, by GOLD 2017 classification ([facility]) Inhale by mouth 2 Puffs [...] failure with hypoxia, on home O2 therapy ([facility]) Take 1 Tablet (1 mg) [...] MOUTH DAILY 90 Tablet 3 3 Active Vancomycin HCl 125 MG Oral Capsule (Vancocin) 1 CAP DAILY UNTIL FECAL TRANSPLANT. 90 Capsule 1 3 Active Vancomycin HCl 125 MG Oral Capsule (Vancocin) 1 tab by mouth four times daily x 14 days, 1 tab twice daily x 7 days, 1 tab daily until fecal transplant 90 Capsule 1 2 06/29/19 Discontinued documented as of this encounter (statuses as of 06/29/2022) Active Problems Problem Noted Date Medical home [...] as of this encounter (statuses as of 06/29/2022) Resolved Problems Problem Noted Date Resolved Date [...] as of this encounter (statuses as of 06/29/2022) Immunizations Name Administration Dates Next Due PPD [...] encounter Miscellaneous Notes * Telephone Encounter - Madan Enrique RN - 06/29/2022 1:54 PM ESTSigned Prescriptions: Disp Refills Vancomycin HCl 125 MG Oral Capsule (Vancoc*90 Cap*1 Si CAP DAILY UNTIL FECAL TRANSPLANT.Authorizing Provider: ELÍAS JENNINGS * Telephone Encounter - Madan Enrique RN - 06/29/2022 1:53 PM EST Called, left detailed message on machine regarding refill and new instructions. * Telephone Encounter - GARRETT Smith - 06/29/2022 1:42 PM EST Yes lets use once daily until he sees ID GARRETT Colon 06/29/2022 1:42 PM * Telephone Encounter - Lory Ramirez RN - 06/29/2022 12:08 PM ESTPending Prescriptions: Disp Refills Vancomycin HCl 125 MG Oral Capsule (Vancoc*90 Cap*1 Si CAP DAILY UNTIL FECAL TRANSPLANT. * Telephone Encounter - Lory Ramirez RN - 06/29/2022 12:07 PM EST elías did you want this to continue? I changed the sig to once daily until fecal transplant. * Telephone Encounter - Brea Rico CPhT - 06/29/2022 11:15 AM ESTPending Prescriptions: Disp Refills Vancomycin HCl 125 MG Oral Capsule [Pharma*90 Cap*1 Sig: TAKE 1 CAP 4 TIMES DAILY X14 DAYS, 1 CAP TWICE DAILY X7 DAYS THEN 1 CAP DAILY UNTIL FECAL TRANSPLANT * Telephone Encounter - Brea Rico CPhT - 06/29/2022 11:13 AM EST Patient is up to date for office visits. Pending Prescriptions: Disp Refills Vancomycin HCl 125 MG Oral Capsule (Vanco*90 Cap*1 Sig: TAKE 1 CAP 4 TIMES DAILY X14 DAYS, 1 CAP TWICE DAILY X7 DAYS THEN 1 CAP DAILY UNTIL FECAL TRANSPLANT Last Visit: 02/10/2022 (in office), 12/17/2021 (telemedicine) Visit date not found If no future appointments scheduled, and last appointment is greater than a year ago, please schedule patient for a follow-up appointment Last date the medication was ordered: 02/20/2022 Pharmacy: [id number] [address] [facility] Is this request for a controlled substance?No it is not controlled. Urine Drug Screen:No results found for this or any previous visit. Patient Phone Numbers Labs: Lab Results Component Value Date/Time CREAT 0.9 02/06/2022 04:07 PM CREAT 0.81 08/30/2021 12:00 AM CREAT 1.1 06/18/2017 09:59 AM POTASSIUM 4.2 02/06/2022 04:07 PM POTASSIUM 3.2 (A) 08/30/2021 12:00 AM POTASSIUM 3.8 06/18/2017 09:59 AM TSH 0.77 12/26/2020 04:03 PM TSH 1.06 08/30/2006 11:56 AM LDLCALC 74 02/17/2008 03:12 PM ALT 15 02/06/2022 04:07 PM ALT 20 05/17/2017 12:00 AM ALT 23 02/17/2008 03:12 PM HGBA1C 5.7 08/30/2006 11:56 AM documented in this encounter Plan of Treatment Upcoming Encounters Date Type Specialty Care Team Description 07/03/2022 Office Visit Family Medicine Kavya Dillard CRNP [address] [place] [address] 08/19/2022 Office Visit Infectious Disease Channing Tim, DO [address] [place] [address] Health Maintenance Due Date Last Done Comments [...] 10/20/2017 LUNG CANCER SCREENING - USE SMARTSET [id number] Completed 06/23/2017 Pneumococcal Vaccine: 65+ Years Completed [...] filedocumented as of this encounter Care Teams Supervisor Loading Relationship Specialty Start Date End Date Kavya Dillard CRNP [address] [place] [address] PCP - General Nurse Practitioner 12/31/20 documented as of this encounter
--- OUTSIDE RECORDS SUMMARY | 2023-04-08 23:03 | External Medical Summary | Summary of Care ---
Author Name Unknown Organization [place] [address] Care Team Providers Care Vacuum Cleaner Mechanic Name Role Phone Kavya Jacinto Primary Care Provider Reason for Visit * Reason Comments eRx-Medication Refill Encounter Details Date Type Department Care Team Description 06/27/2022 Refill Family Practice [facility] 132 [facility] [place] [id number] Kavya Jacinto CRNP [address] [facility] [place] [address] Allergies No known active allergiesdocumented as of this encounter (statuses as of 06/30/2022) Medications Medication Sig Dispensed Refills Start Date [...] Respimat 1.25 MCG/ACT Inhalation Aerosol Solution (Tiotropium [place] Monohydrate) INHALE 2 PUFFS BY MOUTH EVERY DAY 12 g 1 2 Active Additional Information Patient taking differently: Patient has been taking 2 x day? Instructed spouse only to be 1 x day., Informant: Spouse, Reported on 12/23/2021 Saccharomyces boulardii 250 MG Oral Capsule (Florastor) Take by mouth 250 mg in the morning. Florastor . 0 Active Ventolin HFA 108 (90 Base) MCG/ACT Inhalation Aerosol SolutionIndications :COPD, group D, by GOLD 2017 classification ([facility]) Inhale by mouth 2 Puffs every 4 [...] with hypoxia, on home O2 therapy ([facility]) Take 1 Tablet (1 mg) [...] FECAL TRANSPLANT. 90 Capsule 1 3 Active Thiamine HCl 100 MG Oral Tablet (vitamin B-1) TAKE 1 TABLET BY MOUTH EVERY DAY 90 Tablet 3 2 06/30/19 23 Discontinued documented as of this encounter (statuses as of 06/30/2022) Active Problems Problem Noted Date Medical home [...] as of this encounter (statuses as of 06/30/2022) Resolved Problems Problem Noted Date Resolved Date [...] as of this encounter (statuses as of 06/30/2022) Immunizations Name Administration Dates Next Due Pneumococcal [...] * Telephone Encounter - GARRETT Root - 06/30/2022 7:03 AM EST Signed Prescriptions: Disp Refills Thiamine HCl 100 MG Oral Tablet (vitamin B*90 Tab*3 Sig: TAKE 1 TABLET BY MOUTH EVERY DAY Authorizing Provider: KAVYA JACINTO * Telephone Encounter - Kristi Veras LPN - 06/29/2022 4:02 PM ESTPending Prescriptions: Disp Refills Thiamine HCl 100 MG Oral Tablet [Pharmacy *90 Tab*3 Sig: TAKE 1 TABLET BY MOUTH EVERY DAY * Telephone Encounter - Kristi Veras LPN - 06/29/2022 4:02 PM EST Did you pend patient's preferred pharmacy and medication before forwarding?yes Pharmacy: [id number] [address] [facility] Pending Prescriptions: Disp Refills Thiamine HCl 100 MG Oral Tablet (vitamin *90 Tab*3 Sig: TAKE 1 TABLET BY MOUTH EVERY DAY Last Visit: 01/28/2022 (in office), Visit date not found (telemedicine) Next Visit: 07/03/2022 If no future appointments scheduled, and last appointment is greater than a year ago, please schedule patient for a follow-up appointment Last date the medication was ordered: 09/22/21 Is this request for a controlled substance?No [...] 03:12 PM HGBA1C 5.7 08/30/2006 11:56 AM * Telephone Encounter - Ashli Lincoln - 06/27/2022 4:23 PM ESTPending Prescriptions: Disp Refills Thiamine HCl 100 MG Oral Tablet [Pharmacy *90 Tab*3 Sig: TAKE 1TABLET BY MOUTH EVERY DAY documented in this encounter Plan of Treatment Upcoming Encounters Date Type Specialty Care Team Description 07/03/2022 Office Visit Family Medicine Kavya Jacinto CRNP [address] [facility] [address] 08/19/2022 Office Visit Infectious Disease Channing Tim, DO [address] [place] [place] [address] Health Maintenance Due Date Last Done Comments [...] 10/20/2017 LUNG CANCER SCREENING - USE SMARTSET 97651 Completed 06/23/2017 Pneumococcal Vaccine: 65+ Years Completed [...] filedocumented as of this encounter Care Teams Vacuum Cleaner Mechanic Relationship Specialty Start Date End Date Kavya Jacinto CRNP 132 [facility] [place] [address] PCP - General Nurse Practitioner 12/31/20 documented as of this encounter
--- OUTSIDE RECORDS SUMMARY | 2023-04-08 23:03 | External Medical Summary | Summary of Care ---
Author Name Unknown Organization [place] [address] Care Team Providers Care Water Manager Name Role Phone Kavya Jacinto Primary Care Provider Reason for Visit * Reason Comments eRx-Medication Refill Encounter Details Date Type Department Care Team Description 06/24/2022 Refill Family Practice [facility] 132 [facility] [place] [id number] Kavya Jacinto CRNP [address] [place] [address] Allergies No known active allergiesdocumented as of this encounter (statuses as of 06/25/2022) Medications Medication Sig Dispensed Refills Start Date [...] 3 LPM continuous oxygen with exertion DME: [facility] Indications: Inc to 4LPM with ambulation/exer tion 1 Each 0 1 Active Fluticasone-Salmete rol 250-50 MCG/DOSE Inhalation Aerosol Powder Breath Activated (Advair Diskus)Indications: SOB (shortness of breath) Inhale by mouth 1 Puff in the morning AND 1 Puff before bedtime. Brand necessary. 3 Each 3 2 Active Spiriva Respimat 1.25 MCG/ACT Inhalation Aerosol Solution (Tiotropium [place] Monohydrate) INHALE 2 PUFFS BY MOUTH EVERY [...] 2017 classification ([facility]) Inhale by mouth 2 Puffs every 4 hours as needed for Wheezing. Brand necessary 54 g 3 2 Active Vancomycin HCl 125 MG Oral Capsule (Vancocin) 1 tab by mouth four times daily x 14 days, 1 tab twice daily x 7 days, 1 tab daily until fecal transplant 90 Capsule 1 2 Active Famotidine 20 MG Oral Tablet (Pepcid) Take by mouth 1 Tablet as needed before bedtime for Heartburn. 30 Tablet 11 2 Active Potassium Chloride ER 20 MEQ Oral Tablet Extended Release Take by mouth 1 Tablet in the morning. 30 Tablet 3 2 Active Folic Acid 1 MG Oral TabletIndications:C hronic respiratory failure with hypoxia, on home O2 therapy ([facility]) Take 1 Tablet (1 mg) by mouth [...] MOUTH DAILY 90 Tablet 3 3 Active Vitamin B-12 100 MCG Oral Tablet (vitamin B-12) TAKE 100 MCG BY MOUTH DAILY. 90 Tablet 3 2 06/25/19 23 Discontinued documented as of this encounter (statuses as of 06/25/2022) Active Problems Problem Noted Date Anemia 01/28/2022 [...] as of this encounter (statuses as of 06/25/2022) Resolved Problems Problem Noted Date Resolved Date [...] as of this encounter (statuses as of 06/25/2022) Immunizations Name Administration Dates Next Due Pneumococcal [...] * Telephone Encounter - GARRETT Root - 06/25/2022 4:24 PM EST Signed Prescriptions: Disp Refills Vitamin B-12 100 MCG Oral Tablet (vitamin *90 Tab*3 Sig: TAKE 1 TABLET BY MOUTH DAILY Authorizing Provider: KAVYA JACINTO * Telephone Encounter - Zac Bailey [facility] - 06/25/2022 4:13 PM ESTPending Prescriptions: Disp Refills Vitamin B-12 100 MCG Oral Tablet [Pharmacy*90 Tab*3 Sig: TAKE 1 TABLET BY MOUTH DAILY * Telephone Encounter - Zac Bailey [facility] - 06/25/2022 4:13 PM EST Did you pend patient's preferred pharmacy and medication before forwarding?yes Pharmacy: [id number] [address] [facility] Pending Prescriptions: Disp Refills Vitamin B-12 100 MCG Oral Tablet (vitamin*90 Tab*3 Sig: TAKE 1 TABLET BY MOUTH DAILY Last Visit: 01/28/2022 (in office), Visit date [...] Infectious Disease Channing Tim, DO [address] [facility] [place] [address] Health Maintenance Due Date Last Done Comments [...] 10/20/2017 LUNG CANCER SCREENING - USE SMARTSET 74302 Completed 06/23/2017 Pneumococcal Vaccine: 65+ Years Completed [...] filedocumented as of this encounter Care Teams Water Manager Relationship Specialty Start Date End Date Kavya Jacinto CRNP 132 [facility] [place] [address] PCP - General Nurse Practitioner 12/31/20 documented as of this encounter
--- OUTSIDE RECORDS SUMMARY | 2023-04-08 23:03 | External Medical Summary | Summary of Care ---
Author Name Unknown Organization [place] [address] Care Team Providers Care Account Financial Manager Name Role Phone Gilma Endy Yoanna TUCKER Primary Care Provider Reason for Visit * Reason Comments case management Encounter Details Date Type Department Care Team Description 06/30/2022 [facility] 132 [facility] [place] [address] Kayli Horton, FRANCES Medical home patient encounter* [...] [facility] Indications: Inc to 4LPM with ambulation/exerti on 1 Each 0 04/01/2021 Active Fluticasone-Salmeter ol 250-50 MCG/DOSE Inhalation Aerosol Powder Breath Activated (Advair Diskus)Indications:S OB (shortness of breath) Inhale by mouth 1 Puff in the morning AND 1 Puff before bedtime. Brand necessary. 3 Each 3 09/10/2021 Active Spiriva Respimat 1.25 MCG/ACT Inhalation Aerosol Solution (Tiotropium [place] Monohydrate) INHALE 2 PUFFS BY MOUTH EVERY [...] COPD, group D, by GOLD 2017 classification ([facility]) Inhale by mouth 2 Puffs [...] failure with hypoxia, on home O2 therapy ([facility]) Take 1 Tablet (1 mg) [...] FECAL TRANSPLANT. 90 Capsule 1 06/29/2022 Active documented as of this encounter (statuses [...] Progress Notes * Kayli Horton RN - 06/30/2022 2:48 PM EST Case Management Assessment Is this call for a hospital, prison or rehab facility discharge to home? Yes [facility] 06/20 - 06/26pneumonia Spoke with patient and his spouse Violeta S: Reports: Chest pain L sided rib pain under chest/ "where the pneumonia was" Increased shortness of breath: cough productive sputum productive wheezing denies Fall: cause of fall: new slippers while reaching for light string and patient tripped and fell. Appetite: within normal limits Bowel: diarrhea - ongoing at baseline Medications: has obtained prescriptions from discharge O: Phone visit for Hosp f/u. A: Patient Centered Prioritized Goals: Development of self - management action plan with patient/caregiver/ provider. P: Ice Cream Freezer Interventions: Reinforce Self Management Action Plan established at previous visit Reinforced medication regimen - timing / dosing / purpose prescription guaifenesin vs otc mucinex use prescription as directed and not otc at same time. Re-evaluation of plan of care and progress towards goals achievement: Plan to follow-up as previously scheduled, on 07/03/22 with endy Dillard verbalizes understanding and agrees with plan. Kayli Horton, RN Outpatient Ice Cream Freezer documented in this encounter Plan of Treatment Upcoming Encounters Date Type Specialty Care Team Description 07/03/2022 Office Visit Family Medicine [facility]illard [facility] [address] 08/19/2022 Office Visit Infectious Disease Channing Tim, DO [address] [facility] [address] Health Maintenance Due Date Last Done Comments [...] 10/20/2017 LUNG CANCER SCREENING - USE SMARTSET 18247 Completed 06/23/2017 Pneumococcal Vaccine: 65+ Years Completed [...] examination documented in this encounter Care Teams Account Financial Manager Relationship Specialty Start Date End Date Endy Dillard CRNP 132 [facility] [place] [address] PCP - General Nurse Practitioner 12/31/20 documented as of this encounter
--- OUTSIDE RECORDS SUMMARY | 2023-04-08 23:03 | External Medical Summary | Summary of Care ---
Author Name Unknown Organization [place] [address] Care Team Providers Care Mixing Operator Name Role Phone Kavya Dillard Primary Care Provider Reason for Visit * Reason Comments eRx-Medication Refill Encounter Details Date Type Department Care Team Description 06/27/2022 Refill Gastroenterology, [facility] 132 [facility] [place] [address] Elías Jennings CRNP 132 [facility] [place] [address] Allergies No known active allergiesdocumented as of [...] 3 LPM continuous oxygen with exertion DME: [facility] Indications: Inc to 4LPM with ambulation/exer tion 1 Each 0 1 Active Fluticasone-Salmete rol 250-50 MCG/DOSE Inhalation Aerosol Powder Breath Activated (Advair Diskus)Indications: SOB (shortness of breath) Inhale by mouth 1 Puff in the morning AND 1 Puff before bedtime. Brand necessary. 3 Each 3 2 Active Spiriva Respimat 1.25 MCG/ACT Inhalation Aerosol Solution (Tiotropium [place] Monohydrate) INHALE 2 PUFFS BY MOUTH EVERY [...] GOLD 2017 classification ([facility]) Inhale by mouth 2 Puffs every 4 [...] ordered: 02/20/2022 Pharmacy: [id number] [address] [facility] Is this request for a controlled [...] Medicine Kavya Dillard CRNP 132 [place] [address] 08/19/2022 Office Visit Infectious Disease Channing Tim, DO [address] [place] [address] Health Maintenance Due Date Last Done Comments [...] 10/20/2017 LUNG CANCER SCREENING - USE SMARTSET 99536 Completed 06/23/2017 Pneumococcal Vaccine: 65+ Years Completed [...] filedocumented as of this encounter Care Teams Mixing Operator Relationship Specialty Start Date End Date Kavya Dillard CRNP 132 [place] [address] PCP - General Nurse Practitioner 12/31/20 documented as of this encounter
--- OUTSIDE RECORDS SUMMARY | 2023-04-08 23:03 | External Medical Summary | Summary of Care ---
Author Name Unknown Organization [place] [address] Care Team Providers Care Jigger Operator Name Role Phone Kavya Jacinto Primary Care Provider Reason for Visit * Reason Comments eRx-Medication Refill Encounter Details Date Type Department Care Team Description 06/17/2022 Refill Family Practice [facility] 132 [facility] [place] [phone] Kavya Jacinto CRNP [address] [place] [address] Allergies No known active allergiesdocumented as of this encounter (statuses as of 06/18/2022) Medications Medication Sig Dispensed Refills Start Date [...] continuous oxygen with exertion DME: [facility] Indications: Inc to 4LPM with ambulation/exer tion 1 Each 0 1 Active Fluticasone-Salmete rol 250-50 MCG/DOSE Inhalation Aerosol Powder Breath Activated (Advair Diskus)Indications: SOB (shortness of breath) Inhale by mouth 1 Puff in the morning AND 1 Puff before bedtime. Brand necessary. 3 Each 3 2 Active Spiriva Respimat 1.25 MCG/ACT Inhalation Aerosol Solution (Tiotropium [place] Monohydrate) INHALE 2 PUFFS BY MOUTH EVERY DAY 12 g 1 2 Active Additional Information Patient taking differently: Patient has been taking 2 x day? Instructed spouse only to be 1 x day., Informant: Spouse, Reported on 12/23/2021 Thiamine HCl 100 MG Oral Tablet (vitamin B-1) TAKE 1 TABLET BY MOUTH EVERY DAY 90 Tablet 3 2 Active Vitamin B-12 100 MCG Oral Tablet (vitamin B-12) TAKE 100 MCG BY MOUTH DAILY. 90 Tablet 3 2 Active Saccharomyces boulardii 250 MG Oral Capsule (Florastor) Take by mouth 250 mg in the morning. Florastor . 0 Active Ventolin HFA 108 (90 Base) MCG/ACT Inhalation Aerosol SolutionIndications :COPD, group D, by GOLD 2017 classification ([facility]) Inhale by mouth 2 Puffs every [...] on home O2 therapy ([facility]) Take 1 Tablet (1 mg) by [...] THE DAY 90 Capsule 1 3 Active Omeprazole 40 MG Oral Capsule Delayed Release (PriLOSEC) TAKE 1 CAPSULE BY MOUTH DAILY. 1 HOUR BEFORE THE FIRST MEAL OF THE DAY 90 Capsule 1 2 06/18/19 23 Discontinued documented as of this encounter (statuses as of 06/18/2022) Active Problems Problem Noted Date Anemia 01/28/2022 [...] as of this encounter (statuses as of 06/18/2022) Resolved Problems Problem Noted Date Resolved Date [...] as of this encounter (statuses as of 06/18/2022) Immunizations Name Administration Dates Next Due Pneumococcal [...] encounter Miscellaneous Notes * Telephone Encounter - Zac Ramirez [facility] - 06/18/2022 8:56 PM EST Signed Prescriptions: Disp Refills Omeprazole 40 MG Oral Capsule Delayed Rele*90 Cap*1 Sig: TAKE 1 CAPSULE BY MOUTH DAILY. 1 HOUR BEFORE THE FIRST MEAL OF THE DAYAuthorizing Provider: KAVYA JACINTO User: ZAC RAMIREZ documented in this encounter Plan of Treatment Upcoming Encounters Date Type Specialty Care Team Description 08/19/2022 Office Visit Infectious Disease Channing Tim, DO [address] [facility] [place] [address] Health Maintenance Due Date Last Done Comments [...] 10/20/2017 LUNG CANCER SCREENING - USE SMARTSET 96238 Completed 06/23/2017 Pneumococcal Vaccine: 65+ Years Completed [...] filedocumented as of this encounter Care Teams Jigger Operator Relationship Specialty Start Date End Date Kavya Jacinto CRNP 132 [facility] [place] [address] PCP - General Nurse Practitioner 12/31/20 documented as of this encounter
--- OUTSIDE RECORDS SUMMARY | 2023-04-08 23:03 | External Medical Summary | Summary of Care ---
Author Name Unknown Organization [place] [address] Care Team Providers Care Health Professor Name Role Phone Gilma Kavya Yoanna TUCKER Primary Care Provider Reason for Visit * Reason Comments case management Encounter Details Date Type Department Care Team Description 06/29/2022 CrystalizerWildlife Conservationist Practice [facility] 132 [facility] [place] [address] Kayli Horton, FRANCES Medical home patient encounter* [...] 3 LPM continuous oxygen with exertion DME: [facility] Indications: Inc to 4LPM with ambulation/exerti on 1 Each 0 04/01/2021 Active Fluticasone-Salmeter ol 250-50 MCG/DOSE Inhalation Aerosol Powder Breath Activated (Advair Diskus)Indications:S OB (shortness of breath) Inhale by mouth 1 Puff in the morning AND 1 Puff before bedtime. Brand necessary. 3 Each 3 09/10/2021 Active Spiriva Respimat 1.25 MCG/ACT Inhalation Aerosol Solution (Tiotropium [place] Monohydrate) INHALE 2 PUFFS BY MOUTH EVERY DAY 12 g 1 09/20/2021 Active Additional Information Patient taking differently: Patient has been taking 2 x day? Instructed spouse only to be 1 x day., Informant: Spouse, Reported on 12/23/2021 Thiamine HCl 100 MG Oral Tablet (vitamin B-1) TAKE 1 TABLET BY MOUTH EVERY DAY 90 Tablet 3 09/22/2021 Active Saccharomyces boulardii 250 MG Oral Capsule (Florastor) Take by mouth 250 mg in the morning. Florastor . 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 Follow-up Post Discharge 2. Attempted Phone Call First Attempt 3. Call Unanswered Left Voicemail 4. Plan To attempt Follow-up documented in this encounter Plan of Treatment Upcoming Encounters Date Type Specialty Care Team Description 07/03/2022 Office Visit Family Medicine Kavya Dillard CRNP 132 [facility] [place] [address] 08/19/2022 Office Visit Infectious Disease Channing Tim, DO [address] [facility] [address] Health Maintenance Due Date Last Done Comments [...] 10/20/2017 LUNG CANCER SCREENING - USE SMARTSET 66675 Completed 06/23/2017 Pneumococcal Vaccine: 65+ Years Completed [...] examination documented in this encounter Care Teams Health Professor Relationship Specialty Start Date End Date Kavya Dillard CRNP 132 [place] [address] PCP - General Nurse Practitioner 12/31/20 documented as of this encounter
--- OUTSIDE RECORDS SUMMARY | 2023-04-08 23:04 | External Medical Summary ---
Author Name Unknown Address Unknown Organization K01:[facility] [place] [facility] [address] [facility] [address] Laboratory Report Ordering Provider Test Date Status KERA WYATT 02/18/2022 15:53:03 Final Observation Date Value Abnormality Reference (Units ) Status Campylobacter sp DNA.diarrheagenic [Presence] in Stool by CORINNE with probe detection 02/18/2022 15:53:03 Negative Negative Final Salmonella sp rpoD gene [Presence] in Stool by CORINNE with probe detection 02/18/2022 15:53:03 Negative Negative Final Shigella species+EIEC invasion plasmid antigen H ipaH gene [Presence] in Stool by CORINNE with probe detection 02/18/2022 15:53:03 Negative Negative Final Vibrio sp DNA [Identifier] in Specimen by CORINNE with probe detection 02/18/2022 15:53:03 Negative Negative Final Yersinia enterocolitica recN gene [Presence] in Stool by CORINNE with probe detection 02/18/2022 15:53:03 Negative Negative Final Escherichia coli Stx1 toxin stx1 gene [Presence] in Stool by CORINNE with probe detection 02/18/2022 15:53:03 Negative Negative Final Escherichia coli Stx2 toxin stx2 gene [Presence] in Stool by CORINNE with probe detection 02/18/2022 15:53:03 Negative Negative Final Norovirus genogroups I and II RNA panel - Stool by CORINNE with probe detection 02/18/2022 15:53:03 Negative Negative Final Rotavirus A RNA [Presence] in Stool by CORINNE with probe detection 02/18/2022 15:53:03 Negative Negative Final Performing Location [facility] [place] [address] [address] [facility] [address]
--- OUTSIDE RECORDS SUMMARY | 2023-04-08 23:04 | External Medical Summary | Summary of Care ---
Author Name Unknown Organization [place] [address] Care Team Providers Care Commercial Property Manager Name Role Phone Kavya Dillard Primary Care Provider Reason for Visit * Reason Comments Outpatient Testing Encounter Details Date Type Department Care Team Description 02/18/2022 Laboratory Laboratory, [facility] [address] [facility] [id number] [place], Specimen Drop Off [facility] [address] [place] [address] C. difficile colitis; Chronic diarrhea; Diarrhea of presumed infectious origin Allergies No known active allergiesdocumented as of this encounter (statuses as of 02/18/2022) Medications Medication Sig Dispensed Refills Start Date [...] ambulation/exerti on 1 Each 0 04/01/2021 Active Roflumilast 500 MCG Oral Tablet (Daliresp) Take by mouth 1 Tablet in the morning. 180 Tablet 4 08/25/2021 Active Fluticasone-Salmeter ol 250-50 MCG/DOSE Inhalation Aerosol Powder Breath Activated (Advair Diskus)Indications:S OB (shortness of breath) Inhale by mouth 1 Puff in the morning AND 1 Puff before bedtime. Brand necessary. 3 Each 3 09/10/2021 Active Spiriva Respimat 1.25 MCG/ACT Inhalation Aerosol Solution (Tiotropium [place] Monohydrate) INHALE 2 PUFFS BY MOUTH [...] MOUTH DAILY. 90 Tablet 3 09/22/2021 Active Dificid 200 MG Oral Tablet Take by mouth 200 mg . 0 12/12/2021 Active Famotidine 20 MG Oral Tablet (Pepcid) Take by mouth 1 Tablet as needed before bedtime for Heartburn. 30 Tablet 11 12/17/2021 Active Omeprazole 40 MG Oral Capsule Delayed Release (PriLOSEC) TAKE 1 CAPSULE BY MOUTH DAILY. 1 HOUR BEFORE THE FIRST MEAL OF THE DAY 90 Capsule 1 12/23/2021 Active Folic Acid 1 MG Oral TabletIndications:Ch ronic respiratory failure with hypoxia, on home O2 therapy ([facility]) TAKE 1 TABLET BY MOUTH EVERY DAY 90 Tablet 3 12/24/2021 Active Saccharomyces boulardii 250 MG Oral Capsule (Florastor) Take by mouth 250 mg in the morning. Florastor . 0 Active Ventolin HFA 108 (90 Base) MCG/ACT Inhalation Aerosol SolutionIndications: COPD, group D, by GOLD 2017 classification ([facility]) Inhale by mouth 2 Puffs every 4 hours as needed for Wheezing. Brand necessary 54 g 3 01/12/2022 Active Potassium Chloride ER 20 MEQ Oral Tablet Extended Release Take by mouth 1 Tablet in the morning. 30 Tablet 3 01/15/2022 Active documented as of this encounter (statuses as of 02/18/2022) Active Problems Problem Noted Date Anemia 01/28/2022 [...] as of this encounter (statuses as of 02/18/2022) Resolved Problems Problem Noted Date Resolved Date [...] as of this encounter (statuses as of 02/18/2022) Immunizations Name Administration Dates Next Due PPD [...] Tobacco Use Types Packs/Day Years Used Date Former Smoker Cigarettes 2 59 1956 - 04/07/2016 Smokeless Tobacco: Never Used Comments:started age 16 Alcohol Use Standard Drinks/Week Comments Yes 0 (1 standard drink = 0.6 oz pure alcohol) 3-4 beers per day. Was drinking 8 per day. Alcohol Habits Answer Date Recorded How often do you have a drin k containing alcohol? Not asked How many drinks containing a lcohol do you have on a typical day when you are drinking? Not asked How often do you have six or more drinks on one occasion? Not asked Comment: 3-4 beers per day. W as drinking 8 per day. 10/20/2017 Food Insecurity Answer Date Recorded Within the [...] Encounters Date Type Specialty Care Team Description 05/06/2022 Procedure Only Endoscopy Marsha Lara DO [address] [facility] [place] [address] Pending Results Name Type Priority Associated Diagnoses Date /Time REGIONAL PARASITE ANTIGEN SCREEN Lab Routine C. difficile colitis Chronic diarrhea 02/18/2022 3:52 PM EDT FECAL FAT, QUALITATIVE Lab Routine C. difficile colitis Chronic diarrhea 02/18/2022 3:52 PM EDT GASTROINTESTINAL PATHOGEN PANEL, STOOL Lab Routine C. difficile colitis Chronic diarrhea Diarrhea of presumed infectious origin 02/18/2022 3:53 PM EDT GASTROINTESTINAL PATHOGEN PANEL PCR Lab Routine C. difficile colitis Chronic diarrhea Diarrhea of presumed infectious origin 02/18/2022 3:53 PM EDT GASTROINTESTINAL PATHOGEN PANEL CULTURE Lab Routine C. difficile colitis Chronic diarrhea Diarrhea of presumed infectious origin 02/18/2022 3:53 PM EDT CLOSTRIDIUM DIFFICILE, PCR Lab Routine C. difficile colitis Chronic diarrhea 02/18/2022 3:53 PM EDT Health Maintenance Due Date Last Done Comments Hepatitis C Screening 1958 Zoster Vaccines (1 of 2) 1992 *ADVANCE DIRECTIVE NOT ON FILE 09/25/2020 Depression Screening, Annual for Pts 12 and Over 11/12/2020 11/13/2019 COVID-19 Vaccine (3 - Booster for Moderna series) 06/26/2021 01/24/2021, 10/07/2020 Influenza Vaccine (FLU shot) (#1) 2022 02/25/2021, 04/12/2019, 02/28/2018, Additional history exists O2 ASSESSMENT COMPLETED IN PAST YEAR FOR COPD 02/10/2023 02/10/2022 DTaP,Tdap,and Td Vaccines (2 - Td or Tdap) 10/21/2027 10/20/2017 LUNG CANCER SCREENING - USE SMARTSET [id number] Completed 06/23/2017 Pneumococcal Vaccine: 65+ Years Completed 10/20/2017, 04/27/2017 GARDASIL-HPV IMMUNIZATION SERIES Aged Out No longer eligible based on patient's age to complete this topic Hepatitis B Aged Out No longer eligi ble based on patient's age to complete this topic MENINGOCOCCAL (MENACTRA/MENVEO) Aged Out No longer eligible based on patient's age to complete this topic documented as of this encounter Implants Not on filedocumented as of this encounter Visit Diagnoses Diagnosis C. difficile colitis Intestinal infection due to clostridium difficile Chronic diarrhea Diarrhea Diarrhea of presumed infectious origin Diarrhea of presumed infectious origin documented in this encounter Additional Health Concerns Infection Onset Date Last Indicated Resolved Time Gastrointestinal Rule-Out 02/18/2022 02/18/2022 C. 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 Advanced Directive Advanced Directive Advanced Directive Advanced Directive Advanced Directive Advanced Directive Advanced Directive Advanced Directive Advanced Directive Advanced Directive Advanced Directive Advanced Directive Advanced Directive Advanced Directive Advanced Directive Advanced Directive Advanced Directive Advanced Directive Advanced Directive Advanced Directive Advanced Directive Advanced Directive Advanced Directive Advanced Directive Advanced Directive Advanced Directive Advanced Directive Advanced Directive Advanced Directive Advanced Directive Advanced Directive Advanced Directive Advanced Directive Advanced Directive Advanced Directive Advanced Directive Advanced Directive Advanced Directive Advanced Directive Advanced Directive Advanced Directive Advanced Directive Advanced Directive Advanced Directive Advanced Directive Advanced Directive Advanced Directive Advanced Directive Advanced Directive Advanced Directive Advanced Directive Advanced Directive Advanced Directive Advanced Directive Advanced Directive Care Teams Commercial Property Manager Relationship Specialty Start Date End Date [facility]av[facility]illard CR[facility] [place] [address] PCP - General Nurse Practitioner 12/31/20 documented as of this encounter
--- OUTSIDE RECORDS SUMMARY | 2023-04-08 23:04 | External Medical Summary | Summary of Care ---
Author Name Unknown Organization [place] [address] Care Team Providers Care Onsite Health Coach Name Role Phone Kavya Dillard Primary Care Provider Encounter Details Date Type Department Care Team Description 02/10/2022 Telephone Family Practice [facility] [address] [facility] [place] [address] Kavya Dillard CRNP [address] [place] [address] Allergies No known active allergiesdocumented as of this encounter (statuses as of 02/10/2022) Medications Medication Sig Dispensed Refills Start Date [...] 3 LPM continuous oxygen with exertion DME: [facility] Indications: Inc to 4LPM with ambulation/exerti [...] Respimat 1.25 MCG/ACT Inhalation Aerosol Solution (Tiotropium [place] Monohydrate) INHALE 2 PUFFS BY MOUTH EVERY [...] failure with hypoxia, on home O2 therapy ([facility]) TAKE 1 TABLET BY MOUTH EVERY DAY 90 Tablet 3 12/24/2021 Active Saccharomyces boulardii 250 MG Oral Capsule (Florastor) Take by mouth 250 mg in the morning. Florastor . 0 Active Ventolin HFA 108 (90 Base) MCG/ACT Inhalation Aerosol SolutionIndications: COPD, group D, by GOLD 2017 classification ([facility]) Inhale by mouth 2 Puffs every 4 hours as needed for Wheezing. Brand necessary 54 g 3 01/12/2022 Active Potassium Chloride ER 20 MEQ Oral Tablet Extended Release Take by mouth 1 Tablet in the morning. 30 Tablet 3 01/15/2022 Active documented as of this encounter (statuses as of 02/10/2022) Active Problems Problem Noted Date Anemia 01/28/2022 [...] as of this encounter (statuses as of 02/10/2022) Resolved Problems Problem Noted Date Resolved Date [...] as of this encounter (statuses as of 02/10/2022) Immunizations Name Administration Dates Next Due PPD [...] Procedure Only Endoscopy Marsha Lara DO [address] [place] [address] Scheduled Orders Name Type Priority Associated Diagnoses Orde r Schedule COMPREHENSIVE METABOLIC PANEL Lab Routine Elevated alkaline phosphatase level Expected: 04/12/2022 (Approximate), Expires: 02/10/2023 Health Maintenance Due Date Last Done Comments [...] ASSESSMENT COMPLETED IN PAST YEAR FOR COPD 12/16/2022 02/10/2022 DTaP,Tdap,and Td Vaccines (2 - Td or Tdap) 10/21/2027 10/20/2017 LUNG CANCER SCREENING - USE SMARTSET [id number] Completed 06/23/2017 Pneumococcal Vaccine: 65+ Years Completed [...] as of this encounter Visit Diagnoses Diagnosis Elevated alkaline phosphatase level- Primary Other nonspecific abnormal serum enzyme levels documented in this encounter Advance Directives Documents on File Type Date Recorded Patient Tracer Lathe Set Up Operator Expl anation Advanced Directive service a emelia [...] Directive Advanced Directive Advanced Directive Care Teams Onsite Health Coach Relationship Specialty Start Date End Date Kavya Dillard CRNP [address] [place] [address] PCP - General Nurse Practitioner 12/31/20 documented as of this encounter
--- OUTSIDE RECORDS SUMMARY | 2023-04-08 23:04 | External Medical Summary ---
Author Name Unknown Address Unknown Organization [id number]:[facility] [place] [address] [place] [address] Laboratory Report Ordering Provider Test Date Status LEXY WYATTHECTOR 02/18/2022 15:53:03 Final Observation Date Value Abnormality Reference (Units) Status Bacteria identified in Unspecified specimen by Culture 02/18/2022 15:53:03 No Aeromonas species or Plesiomonas species isolated. Final Test: Gastrointestinal Patho gen Panel Culture
Specimen Source: Stool
Specimen Type: Stool
Specimen Date: 02/18/2022 3:53 PM
Result Date: 02/21/2022 11:34 AM
Result Status: Final result
Resulting Lab: [facility] [place]
[address]
[place] [id number]

CULTURE

No Aeromonas species or Plesiomonas species isolated.

null Performing Location [facility] [place] [address] [place] [id number]
--- OUTSIDE RECORDS SUMMARY | 2023-04-08 23:04 | External Medical Summary ---
Author Name Unknown Address Unknown Organization K01:[facility] [place] [address] [facility] [address] Laboratory Report Ordering Provider Test Date Status KERA WYATT 02/18/2022 15:53:19 Final Observation Date Value Abnormality Reference (Units) Status Source 02/18/2022 15:53:19 Semi-liquid Final Clostridioides difficile toxin and [id number] strain DNA panel - Stool by CORINNE with probe detection 02/18/2022 15:53:19 Positive for C. difficile toxin B gene DNA by PCR (Amplified Probe). Presumptive positive for C. difficile 027-NAP1-B1 strain by PCR (Amplified Probe). Abnormal Negative Final Performing Location [facility] [place] [address] [facility] [address]
--- OUTSIDE RECORDS SUMMARY | 2023-04-08 23:04 | External Medical Summary | Summary of Care ---
Author Name Unknown Organization [place] [address] Care Team Providers Care Switchbox Assembler Name Role Phone Kavya Dillard Primary Care Provider Reason for Referral * Evaluate & Treat - Unlimited Visits (Within 10 days (routine)) - Authorized Specialty Diagnoses / Procedures Referred By Nicole cisse Referred To Contact Infectious Diseases / Infectious Disease Diagnoses C. difficile diarrhea Nisreen Jennings CRNP [address] [place] [address] Referral ID Status Reason Start Date Expiration Date Visits Requested Visits Authorized [id number] Authorized Specialty Services Required 02/20/[phone] Question Answer Referral Priority Within 10 days (routine) What condition is the patient being seen for? All Other Conditions Comments Recurrent c.diff. Encounter Details Date Type Department Care Team Description 02/20/2022 Telephone Gastroenterology, [facility] [address] [place] [address] Nisreen Jennings CRNP [address] [place] [address] Allergies No known active allergiesdocumented as of this encounter (statuses as of 02/20/2022) Medications Medication Sig Dispensed Refills Start Date [...] 3 LPM continuous oxygen with exertion DME: [facility] Indications: Inc to 4LPM with ambulation/exer tion 1 Each 0 1 Active Roflumilast 500 MCG Oral Tablet (Daliresp) Take by mouth 1 Tablet in the morning. 180 Tablet 4 2 Active Fluticasone-[place]mete rol 250-50 MCG/DOSE Inhalation Aerosol Powder Breath Activated (Advair Diskus)Indications: SOB (shortness of breath) Inhale by mouth 1 Puff in the morning AND 1 Puff before bedtime. Brand necessary. 3 Each 3 2 Active Spiriva Respimat 1.25 MCG/ACT Inhalation Aerosol Solution (Tiotropium [place] Monohydrate) INHALE 2 PUFFS BY MOUTH EVERY [...] MOUTH DAILY. 90 Tablet 3 2 Active Famotidine 20 MG Oral Tablet (Pepcid) Take by mouth 1 Tablet as needed before bedtime for Heartburn. 30 Tablet 11 2 Active Omeprazole 40 MG Oral Capsule Delayed Release (PriLOSEC) TAKE 1 CAPSULE BY MOUTH DAILY. 1 HOUR BEFORE THE FIRST MEAL OF THE DAY 90 Capsule 1 2 Active Folic Acid 1 MG Oral TabletIndications:C hronic respiratory failure with hypoxia, on home O2 therapy ([facility]) TAKE 1 TABLET BY MOUTH EVERY DAY [...] Brand necessary 54 g 3 2 Active Potassium Chloride ER 20 MEQ Oral Tablet Extended Release Take by mouth 1 Tablet in the morning. 30 Tablet 3 2 Active Vancomycin HCl 125 MG Oral Capsule (Vancocin) 1 tab by mouth four times daily x 14 days, 1 tab twice daily x 7 days, 1 tab daily until fecal transplant 90 Capsule 1 2 Active Dificid 200 MG Oral Tablet Take by mouth 200 mg . 0 2 02/21/20 22 Discontinued documented as of this encounter (statuses as of 02/20/2022) Active Problems Problem Noted Date Anemia 01/28/2022 [...] as of this encounter (statuses as of 02/20/2022) Resolved Problems Problem Noted Date Resolved Date [...] as of this encounter (statuses as of 02/20/2022) Immunizations Name Administration Dates Next Due PPD [...] * Telephone Encounter - GARRETT Smith - 02/20/2022 10:59 AM EDT His stool is positive again for c.diff. Please call pt and educated him, soap water and bleach to clean Will restart vancomycin taper Needs to stay on suppressive daily We are not providing stool transplant Please have him reach out to his insurance for other facility Refer to ID GARRETT Colon 02/20/2022 10:59 AM documented in this encounter Plan of Treatment Upcoming Encounters Date Type Specialty Care Team Description 05/06/2022 Procedure Only Endoscopy Marsha Lara, [address] [facility] [place] [address] Scheduled Referrals Name Type Priority Associated Diagnoses Orde r Schedule INFECTIOUS DISEASE REFERRAL OP Referral Within 10 days (routine) C. difficile diarrhea Ordered: 02/20/2022 Health Maintenance Due Date Last Done Comments [...] 10/20/2017 LUNG CANCER SCREENING - USE SMARTSET [id number] Completed 06/23/2017 Pneumococcal Vaccine: 65+ Years Completed [...] this encounter Visit Diagnoses Diagnosis C. difficile diarrhea- Primary Intestinal infection due to clostridium difficile documented in this encounter Additional Health Concerns Infection Onset Date Last Indicated Resolved Time C. 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
--- OUTSIDE RECORDS SUMMARY | 2023-04-08 23:04 | External Medical Summary | Summary of Care ---
Author Name Unknown Organization [place] [address] Care Team Providers Care Deputy Sheriff Court Services Name Role Phone Kavya Dillard Primary Care Provider Reason for Visit * Reason Comments Outpatient Testing Encounter Details Date Type Department Care Team Description 02/18/2022 Laboratory Laboratory, [facility] [address] [facility] [id number] [place], Specimen Drop Off [facility] [address] [facility] [place] [address] C. difficile colitis; Chronic diarrhea; Diarrhea of presumed infectious origin Allergies No known active allergiesdocumented as of this encounter (statuses as of 02/24/2022) Medications Medication Sig Dispensed Refills Start Date [...] 3 LPM continuous oxygen with exertion DME: [facility] Indications: Inc to 4LPM with ambulation/exer tion 1 Each 0 1 Active Roflumilast 500 MCG Oral Tablet (Daliresp) Take by mouth 1 Tablet in the morning. 180 Tablet 4 2 Active Fluticasone-Salmet umberto 250-50 MCG/DOSE Inhalation Aerosol Powder Breath Activated (Advair Diskus)Indications :SOB (shortness of breath) Inhale by mouth 1 Puff in the morning AND 1 Puff before bedtime. Brand necessary. 3 Each 3 2 Active Spiriva Respimat 1.25 MCG/ACT Inhalation Aerosol Solution (Tiotropium [place] Monohydrate) INHALE 2 PUFFS BY MOUTH EVERY [...] MOUTH DAILY. 90 Tablet 3 2 Active Omeprazole 40 MG Oral Capsule Delayed Release (PriLOSEC) TAKE 1 CAPSULE BY MOUTH DAILY. 1 HOUR BEFORE THE FIRST MEAL OF THE DAY 90 Capsule 1 2 Active Folic Acid 1 MG Oral TabletIndications: Chronic respiratory failure with hypoxia, on home O2 therapy ([facility]) TAKE 1 TABLET BY MOUTH EVERY DAY 90 Tablet 3 2 Active Saccharomyces boulardii 250 MG Oral Capsule (Florastor) Take by mouth 250 mg in the morning. Florastor . 0 Active Ventolin HFA 108 (90 Base) MCG/ACT Inhalation Aerosol SolutionIndication s:COPD, group D, by GOLD 2017 classification ([facility]) Inhale by mouth 2 Puffs every 4 hours as needed for Wheezing. Brand necessary 54 g 3 2 Active Potassium Chloride ER 20 MEQ Oral Tablet Extended Release Take by mouth 1 Tablet in the morning. 30 Tablet 3 2 Active Dificid 200 MG Oral Tablet Take by mouth 200 mg . 0 2 022 Discontinued Famotidine 20 MG Oral Tablet (Pepcid) Take by mouth 1 Tablet as needed before bedtime for Heartburn. 30 Tablet 11 2 022 Discontinued(Re fill) documented as of this encounter (statuses as of 02/24/2022) Active Problems Problem Noted Date Anemia 01/28/2022 [...] as of this encounter (statuses as of 02/24/2022) Resolved Problems Problem Noted Date Resolved Date [...] as of this encounter (statuses as of 02/24/2022) Immunizations Name Administration Dates Next Due PPD [...] Only Endoscopy Marsha Lara DO [address] [place] [address] 05/27/2022 Office Visit Infectious Disease Liz Summers MD [address] [facility] [place] [address] Health Maintenance Due Date Last Done [...] 10/20/2017 LUNG CANCER SCREENING - USE SMARTSET 21920 Completed 06/23/2017 Pneumococcal Vaccine: 65+ Years Completed [...] Not on filedocumented as of this encounter Procedures Procedure Name Priority Date/Time Associated Diagnosis Comments GASTROINTESTINAL PATHOGEN PANEL, STOOL Routine 02/18/2022 3:53 PM EDT C. difficile colitis Chronic diarrhea Diarrhea of presumed infectious origin REGIONAL PARASITE ANTIGEN SCREEN Routine 02/18/2022 3:53 PM EDT C. difficile colitis Chronic diarrhea GASTROINTESTINAL PATHOGEN PANEL CULTURE Routine 02/18/2022 3:53 PM EDT C. difficile colitis Chronic diarrhea Diarrhea of presumed infectious origin GASTROINTESTINAL PATHOGEN PANEL PCR Routine 02/18/2022 3:53 PM EDT C. difficile colitis Chronic diarrhea Diarrhea of presumed infectious origin CLOSTRIDIUM DIFFICILE, PCR Routine 02/18/2022 3:53 PM EDT C. difficile colitis Chronic diarrhea FECAL FAT, QUALITATIVE Routine 3:52 PM EDT C. difficile colitis Chronic diarrhea documented in this encounter Results * (ABNORMAL) CLOSTRIDIUM DIFFICILE, PCR (02/18/2022 3:53 PM EDT) [facility] Stool Consistency Semi-liquid [facility] Clostridium difficile Result Positive for C. difficile toxin B gene DNA by PCR (Amplified Probe). Presumptive positive for C. difficile [id number] strain by PCR (Amplified Probe).(A) Negative LAB[facility]ORY [facility] Specimen Stool - Stool specimen (spec imen) Performing Organization Address [facility] de Phone Number LABORATORY [facility] [address] [place] [address] * GASTROINTESTINAL PATHOGEN PANEL CULTURE (02/18/2022 3:53 PM EDT) [facility] Culture Growth No Aeromonas species or Plesiomonas species isolated. LABORATORY [facility] Specimen Stool - Stool specimen (spec imen) Performing Organization Address [facility] de Phone Number [facility] [address] [place] [address] * GASTROINTESTINAL PATHOGEN PANEL PCR (02/18/2022 3:53 PM EDT) [facility] Campylobacter group by PCR Negative Negative LABORATOR [facility] Salmonella species by PCR Negative Negative [facility] Shigella species by PCR Negative Negative [facility]ATORY [facility] Vibrio group by PCR Negative Negative [facility] Yersinia enterocolitica by PCR Negative Negative [facility] Shiga Toxin 1 Gene by PCR Negative Negative LABORATORY C Shiga Toxin 2 Gene by PCR Negative Negative [facility] Norovirus by PCR Negative Negative [facility] Rotavirus by PCR Negative Negative LABORATORY [facility] Specimen Stool - Stool specimen (spec imen) Performing Organization Address [facility] de Phone Number [facility] [address] [place] [address] * REGIONAL PARASITE ANTIGEN SCREEN (02/18/2022 3:53 PM EDT) [facility] Cryptosporidium Antigen Result NegativeComment:Negat erick for Cryptosporidium Antigen. Negative [facility] Giardia Antigen Result NegativeComment:N egat erick for Giardia Specific Antigen. Negative [facility] Specimen Stool - Stool specimen (spec imen) Performing Organization Address [facility] de Phone Number [facility] [address] [place] [address] * FECAL FAT, QUALITATIVE (02/18/2022 3:52 PM EDT) Fecal Fat, Qualitative Normal Comment: Test Performed at: [facility] [place] [address] [place] [address] Madan Bills M.D., Ph.D.,Director of Laboratories [facility] [place] Specimen Stool - Stool specimen (spec imen) [email or web address] [place] [address] [place] [address] documented in this encounter Visit Diagnoses Diagnosis C. difficile colitis Intestinal infection due to clostridium difficile Chronic diarrhea Diarrhea Diarrhea of presumed infectious origin Diarrhea of presumed infectious origin documented in this encounter Additional Health Concerns Infection Onset Date Last Indicated Resolved Time Gastrointestinal Rule-Out 02/18/2022 02/18/2022 9:59 AM EDT C. difficile Rule-Out 02/18/2022 02/18/20222021 11:17 PM EDT C. 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
--- OUTSIDE RECORDS SUMMARY | 2023-04-08 23:04 | External Medical Summary ---
Author Name Unknown Address Unknown Organization : Laboratory Report Ordering Provider Test Date Status KERA WYATT 02/18/2022 15:52:53 Final Observation Date Value Abnormality Reference (Units ) Status Fat.microscopic observation [Identifier] in Stool by [place]if[place] IV stain 02/18/2022 15:52:53 Normal Normal Final
Test Performed at:
[facility]
[address]
[place] [address]
Madan Bills M.D., Ph.D.,Director of Laboratories Performing Location
--- OUTSIDE RECORDS SUMMARY | 2023-04-08 23:04 | External Medical Summary | Summary of Care ---
Author Name Unknown Organization [place] [address] Care Team Providers Care Photographer'S Model Name Role Phone Kavya Dillard Primary Care Provider Reason for Referral * Evaluate & Treat - Unlimited Visits (Within 10 days (routine)) - Authorized Specialty Diagnoses / Procedures Referred By Nicole cisse Referred To Contact Infectious Diseases / Infectious Disease Diagnoses C. difficile diarrhea Nisreen Jennings CRNP [address] [place] [address] Referral ID Status Reason Start Date Expiration Date Visits Requested Visits Authorized [id number] Authorized Specialty Services Required 02/20/2022 999 999 Question Answer Referral Priority Within 10 days (routine) What condition is the patient being seen for? All Other Conditions Comments Recurrent c.diff. Reason for Visit * Reason Onset Date Comments Test Results 02/20/2022 Cdiff Encounter Details Date Type Department Care Team Description 02/20/2022 Telephone Gastroenterology, [facility] [address] [place] [address] Nisreen Jennings CRNP [address] [place] [address] Test Results (Cdiff) Allergies No known active allergiesdocumented as of [...] Hospital Center Indications: Inc to 4LPM with ambulation/exer [...] Respimat 1.25 MCG/ACT Inhalation Aerosol Solution (Tiotropium [place] Monohydrate) INHALE 2 PUFFS BY MOUTH EVERY [...] therapy ([facility]) TAKE 1 TABLET BY MOUTH EVERY DAY 90 Tablet 3 2 Active Saccharomyces boulardii 250 MG Oral Capsule (Florastor) Take by mouth 250 mg in the morning. Florastor . 0 Active Ventolin HFA 108 (90 Base) MCG/ACT Inhalation Aerosol SolutionIndications :COPD, group D, by GOLD 2017 classification ([facility]) Inhale by mouth 2 Puffs every [...] encounter Miscellaneous Notes * Telephone Encounter - Elva Oliveira LPN - 02/20/2022 3:02 PM EDT Pt called back and made aware of results, states that he is cleaning with bleach, reeducated, pt will call medicare to see if anyone does stool transplants, pt will scrap picker vanco and use as directed,pt scheduled to see ID in May. * Telephone Encounter - Madan Enrique RN - 02/20/2022 11:50 AM EDT Called patient, no answer, LMOM with return #. 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
--- OUTSIDE RECORDS SUMMARY | 2023-04-08 23:04 | External Medical Summary | Summary of Care ---
Author Name Unknown Organization [place] [address] Care Team Providers Care School Of Nursing Director Name Role Phone Kavya Jacinto Primary Care Provider Reason for Visit * Reason Onset Date Comments Medication Refill 05/15/2022 Encounter Details Date Type Department Care Team Description 05/15/2022 Refill Family Practice [facility] [address] [place] [address] Kavya Jacinto CRNP [address] [place], [place] [id number] Allergies No known active allergiesdocumented as of this encounter (statuses as of 05/15/2022) Medications Medication Sig Dispensed Refills Start Date [...] 3 LPM continuous oxygen with exertion DME: [facility] Indications: Inc to 4LPM with ambulation/exert ion 1 Each 0 04/01/2021 Active Fluticasone-Salmete rol 250-50 MCG/DOSE Inhalation Aerosol Powder Breath Activated (Advair Diskus)Indications: SOB (shortness of breath) Inhale by mouth 1 Puff in the morning AND 1 Puff before bedtime. Brand necessary. 3 Each 3 09/10/2021 Active Spiriva Respimat 1.25 MCG/ACT Inhalation Aerosol Solution (Tiotropium [place] Monohydrate) INHALE 2 PUFFS BY MOUTH EVERY [...] :COPD, group D, by GOLD 2017 classification ([facility]) Inhale by mouth 2 Puffs [...] failure with hypoxia, on home O2 therapy ([facility]) Take 1 Tablet (1 mg) by mouth in the morning. 90 Tablet 3 04/14/2022 Active Roflumilast 500 MCG Oral Tablet (Daliresp) Take 1 Tablet (500 mcg) by mouth in the morning. 180 Tablet 4 05/15/2022 Active Roflumilast 500 MCG Oral Tablet (Daliresp) Take by mouth 1 Tablet in the morning. 180 Tablet 4 08/25/2021 2 Discontinu ed(Refill) documented as of this encounter (statuses as of 05/15/2022) Active Problems Problem Noted Date Anemia 01/28/2022 [...] as of this encounter (statuses as of 05/15/2022) Resolved Problems Problem Noted Date Resolved Date [...] as of this encounter (statuses as of 05/15/2022) Immunizations Name Administration Dates Next Due Pneumococcal [...] * Telephone Encounter - GARRETT Root - 05/15/2022 3:11 PM EST Signed Prescriptions: Disp Refills Roflumilast 500 MCG Oral Tablet (Daliresp) 180 Ta*4 Sig: Take 1 Tablet (500 mcg) by mouth in the morning. Authorizing Provider: KAVYA JACINTO * Telephone Encounter - Maty Braxton CPhT - 05/15/2022 3:06 PM EST Did you pend patient's preferred pharmacy and medication before forwarding?yes Pharmacy: [id number] [address] [facility] Pending Prescriptions: Disp Refills Roflumilast 500 MCG Oral Tablet (Daliresp)180 Ta*4 Sig: Take 1 Tablet (500 mcg) by mouth in the morning. Last Visit: 01/28/2022 (in office), Visit date not found (telemedicine) Next Visit: Visit date not found If no future appointments scheduled, and last appointment is greater than a year ago, please schedule patient for a follow-up appointment Last date the medication was ordered: 08/25/2021 Is this request for a controlled substance?No [...] Infectious Disease Liz Summers MD [address] [place] [address] Health Maintenance Due Date Last Done Comments [...] 10/20/2017 LUNG CANCER SCREENING - USE SMARTSET [address] Completed 06/23/2017 Pneumococcal Vaccine: 65+ Years Completed 10/20/2017, 04/27/2017 GARDASIL-HPV IMMUNIZATION SERIES Aged Out No longer eligible based on patient's age to complete this topic MENINGOCOCCAL (MENACTRA/MENVEO) Aged Out No longer eligible based on patient's age to complete this topic documented as of this encounter Medical Devices Not on filedocumented as of this encounter Care Teams School Of Nursing Director Relationship Specialty Start Date End Date Kavya Jacinto CRNP [address] [place] [address] PCP - General Nurse Practitioner 12/31/20 documented as of this encounter
--- OUTSIDE RECORDS SUMMARY | 2023-04-08 23:04 | External Medical Summary ---
Author Name Unknown Address Unknown Organization K01:LABORATORY [facility] [place] - [address] [place] [address] Laboratory Report Ordering Provider Test Date Status KERA WYATT 02/18/2022 15:53:03 Final Observation Date Value Abnormality Reference (Units ) Status Cryptosporidium sp Ag [Presence] in Stool by Immunoassay 02/18/2022 15:53:03 Negative Negative Final Negative for Cryptosporidium Antigen. Giardia lamblia Ag [Presence ] in Stool by Immunoassay 02/18/2022 15:53:03 Negative Negative Final Negative for Giardia Specifi c Antigen. Performing Location [facility]ATORY [facility] [address] [facility] [address]
--- OUTSIDE RECORDS SUMMARY | 2023-04-08 23:04 | External Medical Summary | Summary of Care ---
Author Name Unknown Organization [place] [address] Care Team Providers Care Valve Grinder Name Role Phone Kavya Dillard Primary Care Provider Reason for Referral * Evaluate & Treat - Unlimited Visits (Within 10 days (routine)) - Authorized Specialty Diagnoses / Procedures Referred By Nicole cisse Referred To Contact Infectious Diseases / Infectious Disease Diagnoses C. difficile diarrhea Nisreen Jennings CRNP [address] [facility] [place] [address] Referral ID Status Reason Start Date Expiration Date Visits Requested Visits Authorized [id number] Authorized Specialty Services Required 02/20/2022 999 999 Question Answer Referral Priority Within 10 days (routine) What condition is the patient being seen for? All Other Conditions Comments Recurrent c.diff. Reason for Visit * Reason Onset Date Comments Test Results 02/20/2022 Cdiff Encounter Details Date Type Department Care Team Description 02/20/2022 Telephone Gastroenterology, [facility] [address] [place] [address] [facility]reen Jennings CRNP [facility] [place] [address] Test Results (Cdiff) Allergies No known active [...] Respimat 1.25 MCG/ACT Inhalation Aerosol Solution (Tiotropium [place] Monohydrate) INHALE 2 PUFFS BY MOUTH EVERY [...] failure with hypoxia, on home O2 therapy ([facility]) TAKE 1 TABLET BY MOUTH EVERY DAY 90 Tablet 3 2 Active Saccharomyces boulardii 250 MG Oral Capsule (Florastor) Take by mouth 250 mg in the morning. Florastor . 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
--- OUTSIDE RECORDS SUMMARY | 2023-04-08 23:04 | External Medical Summary | Summary of Care ---
Author Name Unknown Organization [place] [address] Care Team Providers Care Operations Professional Name Role Phone Kavya Dillard Primary Care Provider Reason for Visit * Reason Onset Date Comments Advice 05/18/2022 Encounter Details Date Type Department Care Team Description 05/18/[address] [facility] [address] [facility] [address] Kavya Dillard CRNP [address] [place] [address] Advice Allergies No known active allergiesdocumented as of this encounter (statuses as of 05/18/2022) Medications Medication Sig Dispensed Refills Start Date [...] 3 LPM continuous oxygen with exertion DME: [facility] Indications: Inc to 4LPM with ambulation/exerti on 1 Each 0 04/01/2021 Active Fluticasone-Salmeter ol 250-50 MCG/DOSE Inhalation Aerosol Powder Breath Activated (Advair Diskus)Indications:S OB (shortness of breath) Inhale by mouth 1 Puff in the morning AND 1 Puff before bedtime. Brand necessary. 3 Each 3 09/10/2021 Active Spiriva Respimat 1.25 MCG/ACT Inhalation Aerosol Solution (Tiotropium [place] Monohydrate) INHALE 2 PUFFS BY MOUTH EVERY [...] as of this encounter (statuses as of 05/18/2022) Active Problems Problem Noted Date Anemia 01/28/2022 [...] as of this encounter (statuses as of 05/18/2022) Resolved Problems Problem Noted Date Resolved Date [...] as of this encounter (statuses as of 05/18/2022) Immunizations Name Administration Dates Next Due Pneumococcal [...] encounter Miscellaneous Notes * Telephone Encounter - DEBBIE Wood - 05/18/2022 11:42 AM EST Patient informed to drop forms off at our office for completion. * Telephone Encounter - JAH Wheat - 05/18/2022 9:32 AM EST Daughter in law called in, needs paperwork filled out in order to receive latest prescription (Daliresp) free of cost for pt. Please advise at [phone]. documented in this encounter Plan of Treatment Upcoming Encounters Date Type Specialty Care Team Description 05/27/2022 Office Visit Infectious Disease Liz Summers MD [address] [facility] [place] [address] Health Maintenance Due Date Last Done Comments [...] 10/20/2017 LUNG CANCER SCREENING - USE SMARTSET [id number] Completed 06/23/2017 Pneumococcal Vaccine: 65+ Years Completed 10/20/2017, 04/27/2017 GARDASIL-HPV IMMUNIZATION SERIES Aged Out No longer eligible based on patient's age to complete this topic MENINGOCOCCAL (MENACTRA/MENVEO) Aged Out No longer eligible based on patient's age to complete this topic documented as of this encounter Medical Devices Not on filedocumented as of this encounter Care Teams Operations Professional Relationship Specialty Start Date End Date Kavya Dillard CRNP [address] [place] [address] PCP - General Nurse Practitioner 12/31/20 documented as of this encounter
--- OUTSIDE RECORDS SUMMARY | 2023-04-08 23:04 | External Medical Summary | Summary of Care ---
Author Name Unknown Organization [place] [address] Care Team Providers Care Statement Clerks Supervisor Name Role Phone Kavya Jacinto Primary Care Provider Reason for Visit * Reason Onset Date Comments Medication Refill 03/19/2022 Encounter Details Date Type Department Care Team Description 03/19/[address] [facility] [address] [place] [address] Kavya Jacinto CRNP [address] [place], [place] [id number] Allergies No known active allergiesdocumented as of this encounter (statuses as of 03/20/2022) Medications Medication Sig Dispensed Refills Start Date [...] 3 LPM continuous oxygen with exertion DME: [facility] Indications: Inc to 4LPM with ambulation/exert ion 1 Each 0 04/01/2021 Active Roflumilast 500 MCG Oral Tablet (Daliresp) Take by mouth 1 Tablet in the morning. 180 Tablet 4 08/25/2021 Active Fluticasone-Salmete rol 250-50 MCG/DOSE Inhalation Aerosol Powder Breath Activated (Advair Diskus)Indications: SOB (shortness of breath) Inhale by mouth 1 Puff in the morning AND 1 Puff before bedtime. Brand necessary. 3 Each 3 09/10/2021 Active Spiriva Respimat 1.25 MCG/ACT Inhalation Aerosol Solution (Tiotropium [place] Monohydrate) INHALE 2 PUFFS BY MOUTH EVERY [...] 12/23/2021 Active Folic Acid 1 MG Oral TabletIndications:C hronic respiratory failure with hypoxia, on home O2 therapy ([facility]) TAKE 1 TABLET BY MOUTH EVERY DAY 90 Tablet 3 12/24/2021 Active Saccharomyces boulardii 250 MG Oral Capsule (Florastor) Take by mouth 250 mg in the morning. Florastor . 0 Active Ventolin HFA 108 (90 Base) MCG/ACT Inhalation Aerosol SolutionIndications :COPD, group D, by GOLD 2017 classification ([facility]) Inhale by mouth 2 Puffs every 4 [...] the morning. 30 Tablet 3 03/20/2022 Active Potassium Chloride ER 20 MEQ Oral Tablet Extended Release Take by mouth 1 Tablet in the morning. 30 Tablet 3 01/15/2022 2 Discontinu ed(Refill) documented as of this encounter (statuses as of 03/20/2022) Active Problems Problem Noted Date Anemia 01/28/2022 [...] as of this encounter (statuses as of 03/20/2022) Resolved Problems Problem Noted Date Resolved Date [...] as of this encounter (statuses as of 03/20/2022) Immunizations Name Administration Dates Next Due PPD [...] * Telephone Encounter - GARRETT Root - 03/20/2022 6:58 AM EDT Signed Prescriptions: Disp Refills Potassium Chloride ER 20 MEQ Oral Tablet E*30 Tab*3 Sig: Take by mouth 1 Tablet in the morning. Authorizing Provider: KAVYA JACINTO * Telephone Encounter - Kathya Aranda LPN - 03/19/2022 7:24 PM EDT Pending Prescriptions: Disp Refills Potassium Chloride ER 20 MEQ Oral Tablet *30 Tab*3 Sig: Take by mouth 1 Tablet in the morning. * Telephone Encounter - JAH Reyna - 03/19/2022 4:01 PM EDT Did you pend patient's preferred pharmacy and medication before forwarding?yes Pharmacy: [id number] [address] [place] [address] Pending Prescriptions: Disp Refills Potassium Chloride ER 20 MEQ Oral Tablet *30 Tab*3 Sig: Take by mouth 1 Tablet in the morning. Last Visit: 01/28/2022 (in office), Visit date not found (telemedicine) Next Visit: Visit date not found If no future appointments scheduled, and last appointment is greater than a year ago, please schedule patient for a follow-up appointment Last date the medication was ordered: 01.15.22 Is this request for a controlled substance?No [...] Procedure Only Endoscopy Marsha Lara DO 132 [facility] [place] [address] 05/27/2022 Office Visit [facility] [address] [facility] [place] [address] Health Maintenance Due Date Last Done Comments [...] 10/20/2017 LUNG CANCER SCREENING - USE SMARTSET 16161 Completed 06/23/2017 Pneumococcal Vaccine: 65+ Years Completed [...] Not on filedocumented as of this encounter Additional Health Concerns Infection Onset Date Last Indicated Resolved Time C. difficile 02/18/2022 02/18/2022 03/20/2022 12:1 8 AM EDT documented as of this encounter Advance Directives Documents on File Type Date Recorded Patient Transit Planning Director Expl anation Advanced Directive service a emelia [...] Directive Advanced Directive Advanced Directive Care Teams Statement Clerks Supervisor Relationship Specialty Start Date End Date Kavya Jacinto CRNP [address] [place] [address] PCP - General Nurse Practitioner 12/31/20 documented as of this encounter
--- OUTSIDE RECORDS SUMMARY | 2023-04-08 23:04 | External Medical Summary | Summary of Care ---
Author Name Unknown Organization [place] [address] Care Team Providers Care Waterworks Chief Engineer Name Role Phone Kavya Dillard Primary Care Provider Reason for Visit * Reason Onset Date Comments Medication Refill 05/18/2022 Encounter Details Date Type Department Care Team Description 05/18/2022 Refill Family Practice [facility] [address] [facility] [place] [address] Kavya Dillard CRNP [address] [place], [place] [id number] Allergies No known active allergiesdocumented as of [...] 3 LPM continuous oxygen with exertion DME: [facility] Indications: Inc to 4LPM with ambulation/exerti on 1 Each 0 04/01/2021 Active Fluticasone-Salmeter ol 250-50 MCG/DOSE Inhalation Aerosol Powder Breath Activated (Advair Diskus)Indications:S OB (shortness of breath) Inhale by mouth 1 Puff in the morning AND 1 Puff before bedtime. Brand necessary. 3 Each 3 09/10/2021 Active Spiriva Respimat 1.25 MCG/ACT Inhalation Aerosol Solution (Tiotropium [place] Monohydrate) INHALE 2 PUFFS BY MOUTH EVERY [...] COPD, group D, by GOLD 2017 classification ([facility]) Inhale by mouth 2 Puffs every 4 [...] Infectious Disease Liz Summers MD [address] [place] [address] Health Maintenance Due Date Last Done Comments [...] 10/20/2017 LUNG CANCER SCREENING - USE SMARTSET 10983 Completed 06/23/2017 Pneumococcal Vaccine: 65+ Years Completed 10/20/2017, 04/27/2017 GARDASIL-HPV IMMUNIZATION SERIES Aged Out No longer eligible based on patient's age to complete this topic MENINGOCOCCAL (MENACTRA/MENVEO) Aged Out No longer eligible based on patient's age to complete this topic documented as of this encounter Medical Devices Not on filedocumented as of this encounter Care Teams Waterworks Chief Engineer Relationship Specialty Start Date End Date Kavya Dillard CRNP 132 [facility] [place] [address] PCP - General Nurse Practitioner 12/31/20 documented as of this encounter
--- OUTSIDE RECORDS SUMMARY | 2023-04-08 23:04 | External Medical Summary | Summary of Care ---
Author Name Unknown Organization [place] [address] Care Team Providers Care Data Management Associate Name Role Phone Kavya Jacinto Primary Care Provider Reason for Visit * Reason Onset Date Comments Medication Refill 04/14/2022 Encounter Details Date Type Department Care Team Description 04/14/2022 Refill [facility] Practice [facility] [address] Kavya Jacinto CRNP 132 [place] [address] Chronic respiratory failure with hypoxia, on home O2 therapy (HCC) Allergies No known active allergiesdocumented as of this encounter (statuses as of 04/14/2022) Medications Medication Sig Dispensed Refills Start Date [...] LPM continuous oxygen with exertion DME: [facility] Indications: Inc to 4LPM with ambulation/exert ion [...] Respimat 1.25 MCG/ACT Inhalation Aerosol Solution (Tiotropium [place] Monohydrate) INHALE 2 PUFFS BY MOUTH EVERY [...] :COPD, group D, by GOLD 2017 classification ([facility]) Inhale by mouth 2 Puffs [...] the morning. 90 Tablet 3 04/14/2022 Active Folic Acid 1 MG Oral TabletIndications:C hronic respiratory failure with hypoxia, on home O2 therapy (HCC) TAKE 1 TABLET BY MOUTH EVERY DAY 90 Tablet 3 12/24/2021 2 Discontinu ed(Refill) documented as of this encounter (statuses as of 04/14/2022) Active Problems Problem Noted Date Anemia 01/28/2022 [...] as of this encounter (statuses as of 04/14/2022) Resolved Problems Problem Noted Date Resolved Date [...] as of this encounter (statuses as of 04/14/2022) Immunizations Name Administration Dates Next Due Pneumococcal [...] * Telephone Encounter - GARRETT Root - 04/14/2022 2:11 PM EST Signed Prescriptions: Disp Refills Folic Acid 1 MG Oral Tablet 90 Tab*3 Sig: Take 1 Tablet (1 mg) by mouth in the morning. Authorizing Provider: KAVYA JACINTO * Telephone Encounter - Kristi Veras LPN - 04/14/2022 1:41 PM ESTPending Prescriptions: Disp Refills Folic Acid 1 MG Oral Tablet 90 Tab*3 Sig: Take 1 Tablet (1 mg) by mouth in the morning. * Telephone Encounter - JAH Clark - 04/14/2022 12:15 PM EST Did you pend patient's preferred pharmacy and medication before forwarding?yes Pharmacy: [id number] [address] [facility] Pending Prescriptions: Disp Refills Folic Acid 1 MG Oral Tablet 90 Tab*3 Sig: Take 1 Tablet (1 mg) by mouth in the morning. Last Visit: 01/28/2022 (in office), Visit date not found (telemedicine) Next Visit: Visit date not found If no future appointments scheduled, and last appointment is greater than a year ago, please schedule patient for a follow-up appointment Last date the medication was ordered: 12/24/2021 90 DAY SUPPLY REQUEST Is this request for a controlled substance?No [...] Infectious Disease Liz Summers MD [address] [place] [address] Health Maintenance Due Date Last Done Comments [...] 10/20/2017 LUNG CANCER SCREENING - USE SMARTSET 80736 Completed 06/23/2017 Pneumococcal Vaccine: 65+ Years Completed [...] (HCC) documented in this encounter Care Teams Data Management Associate Relationship Specialty Start Date End Date Kavya Jacinto CRNP 132 [facility] [place] [address] PCP - General Nurse Practitioner 12/31/20 documented as of this encounter
--- OUTSIDE RECORDS SUMMARY | 2023-04-08 23:04 | External Medical Summary | Summary of Care ---
Author Name Unknown Organization [place] [address] Care Team Providers Care Nuclear Licensing Engineer Name Role Phone Kavya Jacinto Primary Care Provider Reason for Visit * Reason Onset Date Comments Medication Refill 02/23/2022 Encounter Details Date Type Department Care Team Description 02/23/2022 Refill Family Practice [facility] [address] [place] [address] Kavya Jacinto CRNP 132 [place] [address] Allergies No known active allergiesdocumented [...] 3 LPM continuous oxygen with exertion DME: [facility] Indications: Inc to 4LPM with [...] Respimat 1.25 MCG/ACT Inhalation Aerosol Solution (Tiotropium [place] Monohydrate) INHALE 2 PUFFS BY MOUTH EVERY [...] hypoxia, on home O2 therapy ([facility]) TAKE 1 TABLET BY MOUTH EVERY DAY 90 Tablet 3 12/24/2021 Active Saccharomyces boulardii 250 MG Oral Capsule (Florastor) Take by mouth 250 mg in the morning. Florastor . 0 Active Ventolin HFA 108 (90 Base) MCG/ACT Inhalation Aerosol SolutionIndications :COPD, group D, by GOLD 2017 classification ([facility]) Inhale by mouth 2 Puffs every 4 hours as needed for Wheezing. Brand necessary 54 g 3 01/12/2022 Active Potassium Chloride ER 20 MEQ Oral Tablet Extended Release Take by mouth 1 Tablet in the morning. 30 Tablet 3 01/15/2022 Active Vancomycin HCl 125 MG Oral Capsule (Vancocin) 1 tab by mouth four times daily x 14 days, 1 tab twice daily x 7 days, 1 tab daily until fecal transplant 90 Capsule 1 02/20/2022 Active Famotidine 20 MG Oral Tablet (Pepcid) Take by mouth 1 Tablet as needed before bedtime for Heartburn. 30 Tablet 11 02/24/2022 Active Famotidine 20 MG Oral Tablet (Pepcid) Take by mouth 1 Tablet as needed before bedtime for Heartburn. 30 Tablet 11 12/17/2021 2 Discontinu ed(Refill) documented as of this [...] sacroiliac joint 04/24/2005 03/12/2017 Other abnormal glucose 04/23/200505/03/ 7 Overview: glucose 156 Tobacco use disorder [...] * Telephone Encounter - GARRETT Root - 02/24/2022 12:26 PM EDT Signed Prescriptions: Disp Refills Famotidine 20 MG Oral Tablet (Pepcid) 30 Tab*11 Sig: Take by mouth 1 Tablet as needed before bedtime for Heartburn. Authorizing Provider: KAVYA JACINTO * Telephone Encounter - Kristi Veras LPN - 02/23/2022 4:06 PM EDT Pending Prescriptions: Disp Refills Famotidine 20 MG Oral Tablet (Pepcid) 30 Tab*11 Sig: Take by mouth 1 Tablet as needed before bedtime for Heartburn. * Telephone Encounter - JAH lCark - 02/23/2022 2:36 PM EDT Did you pend patient's preferred pharmacy and medication before forwarding?yes Pharmacy: [id number] [address] [facility] Pending Prescriptions: Disp Refills Famotidine 20 MG Oral Tablet (Pepcid) 30 Tab*11 Sig: Take by mouth 1 Tablet as needed before bedtime for Heartburn. Last Visit: 01/28/2022 (in office), Visit date not found (telemedicine) Next Visit: Visit date not found If no future appointments scheduled, and last appointment is greater than a year ago, please schedule patient for a follow-up appointment Last date the medication was ordered: 12/17/2021 Patient Is requesting a 90 day supply Is this request for a controlled substance?No [...] 05/06/2022 Procedure Only Endoscopy Marsha Lara, [address] [place] [address] 05/27/2022 Office Visit Infectious Disease Liz Summers MD [address] [facility] [place] [address] Health Maintenance Due Date Last Done [...] 10/20/2017 LUNG CANCER SCREENING - USE SMARTSET 58293 Completed 06/23/2017 Pneumococcal Vaccine: 65+ Years Completed [...] Documents on File Type Date Recorded Patient Blood Tester Fowl Expl anation Advanced Directive service a emelia [...] Directive Advanced Directive Advanced Directive Care Teams Nuclear Licensing Engineer Relationship Specialty Start Date End Date Kavya Jacinto CRNP [address] [place] [address] PCP - General Nurse Practitioner 12/31/20 documented as of this encounter
--- OUTSIDE RECORDS SUMMARY | 2023-04-08 23:05 | External Medical Summary | Summary of Care ---
Author Name Unknown Organization [place] [address] Care Team Providers Care Veneer Gluer Name Role Phone Kavya Dillard Yoanna TUCKER Primary Care Provider Encounter Details Date Type Department Care Team Description 01/01/2022 External Data Patient Risk Medial Allergies No known active allergiesdocumented as of this encounter (statuses as of 01/09/2022) Medications Medication Sig Dispensed Refills Start Date [...] [facility] Indications: Inc to 4LPM with ambulation/exertio n 1 Each 0 04/01/2021 Active Roflumilast 500 MCG Oral Tablet (Daliresp) Take by mouth 1 Tablet in the morning. 180 Tablet 4 08/25/2021 Active Additional Information Patient not taking. Reported on 12/16/2021 Fluticasone-Salmete rol 250-50 MCG/DOSE Inhalation Aerosol Powder Breath Activated (Advair Diskus)Indications: SOB (shortness of breath) Inhale by mouth 1 Puff in the morning AND 1 Puff before bedtime. Brand necessary. 3 Each 3 09/10/2021 Active Spiriva Respimat 1.25 MCG/ACT Inhalation Aerosol Solution (Tiotropium [place] Monohydrate) INHALE 2 PUFFS BY MOUTH EVERY [...] MOUTH DAILY. 90 Tablet 3 09/22/2021 Active Potassium Chloride ER 20 MEQ Oral Tablet Extended Release Take by mouth 1 Tablet in the morning. 30 Tablet 3 10/22/2021 Active Dificid 200 MG Oral Tablet Take by mouth 200 mg . 0 12/12/2021 Active Famotidine 20 MG Oral Tablet (Pepcid) Take by mouth 1 Tablet as needed before bedtime for Heartburn. 30 Tablet 11 12/17/2021 Active Additional Information Patient not taking. Reported on 12/23/2021 Omeprazole 40 MG Oral Capsule Delayed Release [...] in the morning. Florastor . 0 Active documented as of this encounter (statuses as of 01/09/2022) Active Problems Problem Noted Date Recurrent colitis due to Clostridioides difficile 12/09/2021 [...] as of this encounter (statuses as of 01/09/2022) Resolved Problems Problem Noted Date Resolved Date [...] as of this encounter (statuses as of 01/09/2022) Immunizations Name Administration Dates Next Due PPD [...] Encounters Date Type Specialty Care Team Description 01/28/2022 Office Visit Family Medicine Kavya Dillard CRNP [address] [place] [address] 02/10/2022 Office Visit Gastroenterology Nisreen Jennings CRNP [address] [place] [address] Health Maintenance Due Date Last Done Comments [...] COMPLETED IN PAST YEAR FOR COPD 12/16/2022 12/16/2021 DTaP,Tdap,and Td Vaccines (2 - Td or Tdap) 10/21/2027 10/20/2017 LUNG CANCER SCREENING - USE SMARTSET 02644 Completed 06/23/2017 Pneumococcal Vaccine: 65+ Years Completed [...] Not on filedocumented as of this encounter Advance Directives Documents on File Type Date Recorded Patient Potter Or Ceramic Artist Expl anation Advanced Directive service a emelia [...] Directive Advanced Directive Advanced Directive Care Teams Veneer Gluer Relationship Specialty Start Date End Date [facility] [place] [address] PCP - General Nurse Practitioner 12/31/20 documented as of this encounter
--- OUTSIDE RECORDS SUMMARY | 2023-04-08 23:05 | External Medical Summary | Summary of Care ---
Author Name Unknown Organization [place] [address] Care Team Providers Care Grinder Name Role Phone Kavya Jacinto GARRETT Primary Care Provider Reason for Visit * Reason Onset Date Comments Medication Refill 01/04/2022 Encounter Details Date Type Department Care Team Description 01/04/[address] [facility] 132 [place] [address] Alan Meyers MD [address] [place] [id number] Allergies No known active allergiesdocumented as of this encounter (statuses as of 01/05/2022) Medications Medication Sig Dispensed Refills Start Date [...] by mouth daily. 0 Active oxygen IN GASIndications:In c to 4LPM with ambulation/exerti on 2.5 lpm at rest 3 LPM continuous oxygen with exertion DME: [facility] Indications: Inc to 4LPM with ambulation/exerti on 1 Each 0 04/01/2021 Active Roflumilast 500 MCG Oral Tablet (Daliresp) Take by mouth 1 Tablet in the morning. 180 Tablet 4 08/25/2021 Active Additional Information Patient not taking. Reported on 12/16/2021 Fluticasone-Salme terol 250-50 MCG/DOSE Inhalation Aerosol Powder Breath Activated (Advair Diskus)Indication s:SOB (shortness of breath) Inhale by mouth 1 Puff in the morning AND 1 Puff before bedtime. Brand necessary. 3 Each 3 09/10/2021 Active Spiriva Respimat 1.25 MCG/ACT Inhalation Aerosol Solution (Tiotropium [place] Monohydrate) INHALE 2 PUFFS BY MOUTH EVERY [...] 12/23/2021 Active Folic Acid 1 MG Oral TabletIndications :Chronic respiratory failure with hypoxia, on home O2 therapy (HCC) TAKE 1 TABLET BY MOUTH EVERY DAY 90 Tablet 3 12/24/2021 Active Saccharomyces boulardii 250 MG Oral Capsule (Florastor) Take by mouth 250 mg in the morning. Florastor . 0 Active Ventolin HFA 108 (90 Base) MCG/ACT Inhalation Aerosol Solution Inhale by mouth 2 Puffs every 4 hours as needed for Wheezing. Brand necessary 54 g 3 01/05/2022 Active Ventolin HFA 108 (90 Base) MCG/ACT Inhalation Aerosol Solution Inhale 2 Puffs by mouth every 4 hours as needed for Wheezing. Brand necessary 54 g 3 08/06/2020 2 Discontinue d(Refill) documented as of this encounter (statuses as of 01/05/2022) Active Problems Problem Noted Date Recurrent colitis [...] as of this encounter (statuses as of 01/05/2022) Resolved Problems Problem Noted Date Resolved Date [...] as of this encounter (statuses as of 01/05/2022) Immunizations Name Administration Dates Next Due PPD [...] * Telephone Encounter - GARRETT Root - 01/05/2022 11:14 AM EDT Signed Prescriptions: Disp Refills Ventolin HFA 108 (90 Base) MCG/ACT Inhalat*54 g 3 Sig: Inhale by mouth 2 Puffs every 4 hours as needed for Wheezing. Brand necessary Authorizing Provider: KAVYA JACINTO * Telephone Encounter - Radha Grossman LPN - 01/05/2022 8:47 AM EDT Pending Prescriptions: Disp Refills Ventolin HFA 108 (90 Base) MCG/ACT Inhala*54 g 3 Sig: Inhale by mouth 2 Puffs every 4 hours as needed for Wheezing. Brand necessary * Telephone Encounter - Radha Grossman LPN - 01/05/2022 8:47 AM EDT Did you pend patient's preferred pharmacy and medication before forwarding?yes Pharmacy: Pending Prescriptions: Disp Refills Ventolin HFA 108 (90 Base) MCG/ACT Inhala*54 g 3 Sig: Inhale by mouth 2 Puffs every 4 hours as needed for Wheezing. Brand necessary Last Visit: 12/16/2021 (in office), Visit date not found (telemedicine) Next Visit: 01/28/2022 If no future appointments scheduled, and last appointment is greater than a year ago, please schedule patient for a follow-up appointment Last date the medication was ordered: 08/06/20 Is this request for a controlled substance? Urine Drug Screen:No results found for this or any previous visit. Patient Phone Numbers Labs: Lab Results Component Value Date/Time CREAT 0.8 10/10/2021 05:35 AM CREAT 0.81 08/30/2021 12:00 AM CREAT 1.1 06/18/2017 09:59 AM POTASSIUM 3.8 10/10/2021 05:35 AM POTASSIUM 3.2 (A) 08/30/2021 12:00 AM POTASSIUM 3.8 06/18/2017 09:59 AM TSH 0.77 12/26/2020 04:03 PM TSH 1.06 08/30/2006 11:56 AM LDLCALC 74 02/17/2008 03:12 PM ALT 14 09/18/2021 03:57 PM ALT 20 05/17/2017 12:00 AM ALT 23 02/17/2008 03:12 PM HGBA1C 5.7 08/30/2006 11:56 AM documented in this encounter Plan of Treatment Upcoming Encounters Date Type Specialty Care Team Description 01/28/2022 Office Visit Family Medicine Kavya Jacinto CRNP [address] [place] [address] 02/10/2022 Office Visit Gastroenterology Nisreen Jennings CRNP [address] [place] [address] Health Maintenance Due Date Last Done Comments [...] 10/20/2017 LUNG CANCER SCREENING - USE SMARTSET 78541 Completed 06/23/2017 Pneumococcal Vaccine: 65+ Years Completed [...] Documents on File Type Date Recorded Patient Tagman Expl anation Advanced Directive service a emelia [...] Directive Advanced Directive Advanced Directive Care Teams Grinder Relationship Specialty Start Date End Date [facility] [place] [address] PCP - General Nurse Practitioner 12/31/20 documented as of this encounter
--- OUTSIDE RECORDS SUMMARY | 2023-04-08 23:05 | External Medical Summary | Summary of Care ---
Author Name Unknown Organization [place] [address] Care Team Providers Care Chief Digital Officer Name Role Phone Kavya Dillard Primary Care Provider Encounter Details Date Type Department Care Team Description 10/13/2021 Scan Encounter Family Practice [facility] [address] [facility] [place] [address] Kavya Dillard CRNP 132 [place] [address] <No scans attached> Allergies No known active allergiesdocumented as of this encounter (statuses as of 12/30/2021) Medications Medication Sig Dispensed Refills Start Date End Date Status acetaminophen (TYLENOL) 500 MG Tablet Take 500 mg by mouth every 4 hours as needed for Pain. 0 11/18/2017 Active hydrocortisone acetate (ANUSOL-HC) 25 MG suppository Administer 25 mg into the rectum 2 times a day as needed for Hemorrhoids. 0 Active Multiple Vitamins-Minerals (MULTIVITAMIN ADULTS) TABS Take by mouth daily. 0 Active Ventolin HFA 108 (90 Base) MCG/ACT Inhalation Aerosol Solution Inhale 2 Puffs by mouth every 4 hours as needed for Wheezing. Brand necessary 54 g 3 08/06/2020 Active Additional Information Patient not taking. Reported on 12/16/2021 oxygen IN GASIndications:Inc to 4LPM with ambulation/exertion 2.5 lpm at rest 3 LPM continuous oxygen with exertion DME: [facility] Indications: Inc to 4LPM with ambulation/exertio [...] Respimat 1.25 MCG/ACT Inhalation Aerosol Solution (Tiotropium [place] Monohydrate) INHALE 2 PUFFS BY MOUTH EVERY [...] MOUTH DAILY. 90 Tablet 3 09/22/2021 Active documented as of this encounter (statuses as of 12/30/2021) Active Problems Problem Noted Date Recurrent colitis [...] as of this encounter (statuses as of 12/30/2021) Resolved Problems Problem Noted Date Resolved Date [...] as of this encounter (statuses as of 12/30/2021) Immunizations Name Administration Dates Next Due PPD [...] Medicine Kavya Dillard CRNP [address] [place] [address] 02/10/2022 Office Visit Gastroenterology Nisreen Jennings CRNP [address] [place] [address] Health Maintenance Due Date Last Done Comments Zoster Vaccines (1 of 2) 1992 *ADVANCE [...] 10/20/2017 LUNG CANCER SCREENING - USE SMARTSET 10952 Completed 06/23/2017 Pneumococcal Vaccine: 65+ Years Completed [...] Documents on File Type Date Recorded Patient Industrial Order Clerk Expl anation Advanced Directive service a emelia [...] Directive Advanced Directive Advanced Directive Care Teams Chief Digital Officer Relationship Specialty Start Date End Date Kavya Dillard CRNP 132 [facility] [place] [address] PCP - General Nurse Practitioner 12/31/20 documented as of this encounter
--- OUTSIDE RECORDS SUMMARY | 2023-04-08 23:05 | External Medical Summary ---
Author Name Unknown Address Unknown Organization K01:LAB[facility]ATORY [facility] [place] - [address] [facility] [address] Laboratory Report Ordering Provider Test Date Status ORVILLE SMITH 02/06/2022 16:07:50 Final Observation Date Value Abnormality Reference (Units ) Status WBC, Total 02/06/2022 16:07:50 10.88 Above high normal 4.00-10.80 (K/uL) Final RBC 02/06/2022 16:07:50 3.94 4.50-5.25 (M/uL) Final Hemoglobin 02/06/2022 16:07:50 12.1 Below low normal 14.0-16.8 (g/dL) Final HCT 02/06/2022 16:07:50 39.3 Below low normal 40.0-48.4 (%) Final MCV 02/06/2022 16:07:50 99.7 82.0-99.5 (fL) Final MCH 02/06/2022 16:07:50 30.7 27.0-34.0 (pg) Final MCHC 02/06/2022 16:07:50 30.8 32.0-36.0 (g/dL) Final RDW 02/06/2022 16:07:50 16.3 11.5-15.5 (%) Final Platelets 02/06/2022 16:07:50 281 140-400 (K/uL) Final MPV 02/06/2022 16:07:50 10.1 6.6-11.1 (fL) Final Nucleated erythrocytes/100 leukocytes [Ratio] in Blood by Automated count 02/06/2022 16:07:50 0 <=0 (/100 WBCs) Final Performing Location [facility] - [address] [place] [address]
--- OUTSIDE RECORDS SUMMARY | 2023-04-08 23:05 | External Medical Summary ---
Author Name Unknown Address Unknown Organization K01:LAB[facility]ATORY [facility] - [address] [place] [address] [place] [address] Laboratory Report Ordering Provider Test Date Status ORVILLE SMITH 02/06/2022 16:07:50 Final Observation Date Value Abnormality Reference (Units ) Status BUN 02/06/2022 16:07:50 19 6-20 (mg/dL) Final Creatinine 02/06/2022 16:07:50 0.9 0.6-1.2 (mg/dL) Final Glomerular filtration rate/1.73 sq M.predicted [Volume Rate/Area] in Serum, Plasma or Blood by Creatinine-based formula (CKD-EPI) 02/06/2022 16:07:50 82 >=60 (mL/min) Final eGFR is calculated based on the CKD-EPI 2020 equation Sodium 02/06/2022 16:07:50 142 135-146 (m mol/L) Final Potassium 02/06/2022 16:07:50 4.2 3.5-5.1 (m mol/L) Final Cl 02/06/2022 16:07:50 105 98-107 (mm ol/L) Final CO2 02/06/2022 16:07:50 27 22-32 (mmo l/L) Final Anion gap 02/06/2022 16:07:50 10 7-15 (mmol /L) Final Glucose 02/06/2022 16:07:50 126 Above high normal 70 -120 (mg/dL) Final Albumin 02/06/2022 16:07:50 3.9 3.8-5.0 (g /dL) Final AST (Aspartate aminotransferase) 02/06/2022 16:07:50 15 10-50 (U/L) Fin al Alk Phos 02/06/2022 16:07:50 159 Above high normal 35 -130 (U/L) Final Bilirubin, Total 02/06/2022 16:07:50 0.3 <=1 .2 (mg/dL) Final Calcium 02/06/2022 16:07:50 9.5 8.4-10.2 ( mg/dL) Final Protein 02/06/2022 16:07:50 6.4 6.0-8.3 (g /dL) Final ALT (Alanine aminotransferase) 02/06/2022 16:07:50 15 10-50 (U/L) Varghese nixon Performing Location [facility] - [address] [facility] [address]
--- OUTSIDE RECORDS SUMMARY | 2023-04-08 23:05 | External Medical Summary | Summary of Care ---
Author Name Unknown Organization [place] [address] Care Team Providers Care Purchase Request Editor Name Role Phone Kavya Dillard Primary Care Provider Reason for Visit * Reason Comments Outpatient Testing Encounter Details Date Type Department Care Team Description 02/10/2022 Laboratory Laboratory, [facility] 132 [place] [address] [facility] 132 [place] [address] Arrived Allergies No known active allergiesdocumented as of [...] 3 LPM continuous oxygen with exertion DME: [facility] Indications: Inc to 4LPM with ambulation/exerti [...] Respimat 1.25 MCG/ACT Inhalation Aerosol Solution (Tiotropium [place] Monohydrate) INHALE 2 PUFFS BY MOUTH EVERY [...] with hypoxia, on home O2 therapy ([facility]) TAKE 1 TABLET BY MOUTH EVERY DAY 90 Tablet 3 12/24/2021 Active Saccharomyces boulardii 250 MG Oral Capsule (Florastor) Take by mouth 250 mg in the morning. Florastor . 0 Active Ventolin HFA 108 (90 Base) MCG/ACT Inhalation Aerosol SolutionIndications: COPD, group D, by GOLD 2017 classification ([facility]) Inhale by mouth 2 Puffs [...] Procedure Only Endoscopy Marsha Lara DO [address] [facility] [place] [address] Scheduled Procedures Name Priority Associated Diagnoses Date/Ti me COLONOSCOPY FLEXIBLE PROXIMA L DIAGNOSTIC Clostridium difficile colitis Chronic diarrhea Health Maintenance Due Date Last Done Comments [...] 10/20/2017 LUNG CANCER SCREENING - USE SMARTSET [id number] Completed 06/23/2017 Pneumococcal Vaccine: 65+ Years Completed [...] Documents on File Type Date Recorded Patient Pastor Expl anation Advanced Directive service a emelia [...] Directive Advanced Directive Advanced Directive Care Teams Purchase Request Editor Relationship Specialty Start Date End Date Kavya Dillard CRNP [address] [place] [address] PCP - General Nurse Practitioner 12/31/20 documented as of this encounter
--- OUTSIDE RECORDS SUMMARY | 2023-04-08 23:05 | External Medical Summary | Summary of Care ---
Author Name Unknown Organization [place] [address] Care Team Providers Care Antenna Rigger Name Role Phone DorisKavya barbosa Primary Care Provider Reason for Visit * Reason Comments Outpatient Testing Encounter Details Date Type Department Care Team Description 02/06/2022 Laboratory Laboratory [facility] [place] [address] [place] [address] [facility] [address] [facility] [place] [address] Anemia, unspecified type; Persistent atrial fibrillation (HCC) Allergies No known active allergiesdocumented as of this encounter (statuses as of 02/06/2022) Medications Medication Sig Dispensed Refills Start Date [...] 3 LPM continuous oxygen with exertion DME: [facility] Indications: Inc to 4LPM with ambulation/exerti [...] Respimat 1.25 MCG/ACT Inhalation Aerosol Solution (Tiotropium [place] Monohydrate) INHALE 2 PUFFS BY MOUTH EVERY [...] hypoxia, on home O2 therapy ([facility]) TAKE 1 TABLET BY MOUTH EVERY DAY 90 Tablet 3 12/24/2021 Active Saccharomyces boulardii 250 MG Oral Capsule (Florastor) Take by mouth 250 mg in the morning. Florastor . 0 Active Ventolin HFA 108 (90 Base) MCG/ACT Inhalation Aerosol SolutionIndications: COPD, group D, by GOLD 2017 classification ([facility]) Inhale by mouth 2 Puffs every 4 hours as needed for Wheezing. Brand necessary 54 g 3 01/12/2022 Active Potassium Chloride ER 20 MEQ Oral Tablet Extended Release Take by mouth 1 Tablet in the morning. 30 Tablet 3 01/15/2022 Active documented as of this encounter (statuses as of 02/06/2022) Active Problems Problem Noted Date Anemia 01/28/2022 [...] as of this encounter (statuses as of 02/06/2022) Resolved Problems Problem Noted Date Resolved Date [...] as of this encounter (statuses as of 02/06/2022) Immunizations Name Administration Dates Next Due PPD [...] Encounters Date Type Specialty Care Team Description 02/10/2022 Office Visit Gastroenterology Nisreen Jennings CRNP [address] [place] [address] Pending Results Name Type Priority Associated Diagnoses Date /Time CBC WITH WBC DIFFERENTIAL Lab Routine Anemia, unspecified type 02/06/2022 4:07 PM EDT COMPREHENSIVE METABOLIC PANEL Lab Routine Persistent atrial fibrillation (HCC) 02/06/2022 4:07 PM EDT CBC Lab Routine Anemia, unspecified type 02/06/2022 4:07 PM EDT DIFFERENTIAL, AUTOMATED Lab Routine Anemia, unspecified type 02/06/2022 4:07 PM EDT Health Maintenance Due Date Last [...] 10/20/2017 LUNG CANCER SCREENING - USE SMARTSET 70857 Completed 06/23/2017 Pneumococcal Vaccine: 65+ Years Completed [...] as of this encounter Visit Diagnoses Diagnosis Anemia, unspecified type Persistent atrial fibrillation (HCC) Atrial fibrillation documented in this encounter Advance Directives Documents on File Type Date 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
--- OUTSIDE RECORDS SUMMARY | 2023-04-08 23:05 | External Medical Summary | Summary of Care ---
Author Name Unknown Organization [place] [address] Care Team Providers Care Hydro Excavation Operator Name Role Phone Kavya Dillard Yoanna TUCKER Primary Care Provider Reason for Visit * Reason Onset Date Comments case management 12/15/2021 [facility], initial hospital discharge follow up Encounter Details Date Type Department Care Team Description 12/15/2021 Hims Coder Telephone Care Coordination [address] [place] [address] Roseanne Emerson RN [address] [place] [id number] case management ([facility], initial hospital ... Allergies No known active allergiesdocumented as of this encounter (statuses as of 01/16/2022) Medications Medication Sig Dispensed Refills Start Date End Date Status acetaminophen (TYLENOL) 500 MG Tablet Take 500 mg by mouth every 4 hours as needed for Pain. 0 11/19/19 18 Active hydrocortisone acetate (ANUSOL-HC) 25 MG suppository Administer 25 mg into the rectum 2 times a day as needed for Hemorrhoids. 0 Active Multiple Vitamins-Minerals (MULTIVITAMIN ADULTS) TABS Take by mouth daily. 0 Active oxygen IN GASIndications:Inc to 4LPM with ambulation/exertio n 2.5 lpm at rest 3 LPM continuous oxygen with exertion DME: [facility] Indications: Inc to 4LPM with ambulation/exerti on 1 Each 0 10/26/20 21 Active Roflumilast 500 MCG Oral Tablet (Daliresp) Take by mouth 1 Tablet in the morning. 180 Tablet 4 08/26/19 22 Active Additional Information Patient not taking. Reported on 12/16/2021 Fluticasone-Salmet umberto 250-50 MCG/DOSE Inhalation Aerosol Powder Breath Activated (Advair Diskus)Indications :SOB (shortness of breath) Inhale by mouth 1 Puff in the morning AND 1 Puff before bedtime. Brand necessary. 3 Each 3 09/11/19 22 Active Spiriva Respimat 1.25 MCG/ACT Inhalation Aerosol Solution (Tiotropium [place] Monohydrate) INHALE 2 PUFFS BY MOUTH EVERY DAY 12 g 1 09/21/19 Active Additional Information Patient taking differently: Patient has been taking 2 x day? Instructed spouse only to be 1 x day., Informant: Spouse, Reported on 12/23/2021 Thiamine HCl 100 MG Oral Tablet (vitamin B-1) TAKE 1 TABLET BY MOUTH EVERY DAY 90 Tablet 3 09/23/19 Active Vitamin B-12 100 MCG Oral Tablet (vitamin B-12) TAKE 100 MCG BY MOUTH DAILY. 90 Tablet 3 09/23/19 22 Active Ventolin HFA 108 (90 Base) MCG/ACT Inhalation Aerosol Solution Inhale 2 Puffs by mouth every 4 hours as needed for Wheezing. Brand necessary 54 g 3 08/07/19 21 022 Discontinued(Re fill) Folic Acid 1 MG Oral TabletIndications: Chronic respiratory failure with hypoxia, on home O2 therapy ([facility]) TAKE 1 TABLET BY MOUTH EVERY DAY 90 Tablet 2 05/08/20 21 022 Discontinued Ipratropium [place] 0.02 % Inhalation Solution (Atrovent)Indicati ons:Stage 3 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 ([facility]) Inhale via nebulizer 2.5 mL in the morning AND 2.5 mL at noon AND 2.5 mL before bedtime. Diagnosis code J44.9 Stage 3 Sever COPD by Gold classification [facility]. Diagnosis code J96.11 Chronic Resp Failure with hypoxia on home oxygen therapy.. 270 mL 4 09/24/19 22 022 Discontinued(Ma dication List Clean Up) Omeprazole 40 MG Oral Capsule Delayed Release (PriLOSEC) TAKE 1 CAPSULE BY MOUTH DAILY. 1 HOUR BEFORE THE FIRST MEAL OF THE DAY 90 Capsule 0 10/18/19 22 022 Discontinued Prevalite 4 GM Oral Packet Take by mouth 4 g daily . 0 10/12/19 22 022 Discontinued Potassium Chloride ER 20 MEQ Oral Tablet Extended Release Take by mouth 1 Tablet in the morning. 30 Tablet 3 10/23/19 22 022 Discontinued(Re fill) Vancomycin HCl 125 MG Oral Capsule (Vancocin) Take by mouth 1 Capsule in the morning AND 1 Capsule before bedtime. Until November 08, then taper to one capsule daily til gone.. 0 11/05/19 22 022 Discontinued Levalbuterol HCl 1.25 MG/3ML Inhalation Nebulization Solution (Xopenex)Indicatio ns:Stage 3 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 ([facility]) INHALE 1 AMPULE VIA NEBULIZER 3 TIMES A DAY. 810 mL 2 11/20/19 22 022 Discontinued(Ma dication List Clean Up) documented as of this encounter (statuses as of 01/16/2022) Active Problems Problem Noted Date Recurrent colitis [...] as of this encounter (statuses as of 01/16/2022) Resolved Problems Problem Noted Date Resolved Date [...] as of this encounter (statuses as of 01/16/2022) Immunizations Name Administration Dates Next Due PPD [...] encounter Miscellaneous Notes * Telephone Encounter - Roseanne Emerson RN - 01/16/2022 12:42 PM EDT disenrolled from telehealth IVR calls * Telephone Encounter - Roseanne Emerson RN - 12/15/2021 4:46 PM EDT 1. Follow-up Post Discharge 2. Attempted Phone Call First Attempt 3. Call Unanswered Left Voicemail 4. 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 with evidence of severe proctocolitis on CT ID consulted: dificid 200 mg BID til 12/16 then daily until 12/26/21 stick to diet low in dairy or caffeine (stimulates the bowels) STOP questran Attempted mobile # in [facility] (this belongs to son/POA) -- no answer, LMTRC Attempted pt home # [phone] -- no answer, no VM pt has pcp appt 12/17 3pm [facility] documented in this encounter Plan of Treatment Upcoming Encounters Date Type Specialty Care Team Description 01/28/2022 Office Visit Family Medicine Kavya Dillard CRNP [address] [place] [address] 02/10/2022 Office Visit Gastroenterology Nisreen Jennings CRNP [address] [place] [address] Health Maintenance Due Date Last Done Comments [...] 10/20/2017 LUNG CANCER SCREENING - USE SMARTSET [id number] Completed 06/23/2017 Pneumococcal Vaccine: 65+ Years Completed [...] Documents on File Type Date Recorded 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
--- OUTSIDE RECORDS SUMMARY | 2023-04-08 23:05 | External Medical Summary | Summary of Care ---
Author Name Unknown Organization [place] [address] Care Team Providers Care Airline Counter Agent Name Role Phone Kavya Dillard Primary Care Provider Reason for Referral * Evaluate & Treat - Unlimited Visits (Within 3 days (urgent)) - Authorized Specialty Diagnoses / Procedures Referred By Nicole cisse Referred To Contact Gastroenterology Diagnoses Recurrent colitis due to Clostridioides difficile Kavya Dillard CRNP [address] [place] [address] Referral ID Status Reason Start Date Expiration Date Visits Requested Visits Authorized [id number] Authorized Specialty Services Required 12/26/2021 999 999 Question Answer Referral Priority Within 3 days (urgent) For what condition is the patient being referred? 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 Reason for Visit * Reason Onset Date Comments Advice 12/25/2021 Encounter Details Date Type Department Care Team Description 12/25/2021 Telephone Family Practice [facility] [address] [place] [address] Kavya Dillard CRNP [address] [place] [address] Advice Allergies No known active allergiesdocumented as of this encounter (statuses as of 01/02/2022) Medications Medication Sig Dispensed Refills Start Date [...] [facility] Ind[facility]: Inc to 4LPM with ambulation/exertio [...] Respimat 1.25 MCG/ACT Inhalation Aerosol Solution (Tiotropium [place] Monohydrate) INHALE 2 PUFFS BY MOUTH EVERY [...] as of this encounter (statuses as of 01/02/2022) Active Problems Problem Noted Date Recurrent colitis [...] as of this encounter (statuses as of 01/02/2022) Resolved Problems Problem Noted Date Resolved Date [...] as of this encounter (statuses as of 01/02/2022) Immunizations Name Administration Dates Next Due PPD [...] * Telephone Encounter - GARRETT Smith - 01/02/2022 11:51 AM EDT Thanks you. Please let them know as I had thought earlier, [facility] is not conducting fecal transplant currently due to COVID restriction on obtaining stool. Again they should call their insurance as see what may be in network for them to travel to get the stool transplant complete. Previously, [facility] was doing fecal transplant and so was [facility]. GARRETT Colon 01/02/2022 11:55 AM * Telephone Encounter - Lory Ramirez RN - 12/30/2021 8:23 AM EDT Called and left a message on patients home phone listed. Attempted to call patients son's cellphone listed. * Telephone Encounter - JAH Pollard - 12/29/2021 4:52 PM EDT Patients son called back and wanted to let us know if [place] is an option they would like to go there. Sons name is promise and can be reached at [phone]. * Telephone Encounter - JAH Pollard - 12/29/2021 4:42 PM EDT Please reach out to patient to schedule with Gastro for fecal transplant per Kavya Dillard. Thank you * Telephone Encounter - GARRETT Smith - 12/29/2021 1:52 PM EDT Is [facility] doing fecal transplants again? I had previously told patients they would need to see where it network was with their insurance and we could refer to outside center for this GARRETT Colon 12/29/2021 1:53 PM * Telephone Encounter - Shannan Posey LPN - 12/26/2021 3:04 PM EDT Called pt and spoke with pts . Aware of message to continue medication below * Telephone Encounter - GARRETT Root - 12/26/2021 2:29 PM EDT Continue difficid for now, Per ID notes to continue until fecal transplant. Can GI assist with referral for fecal transplant in [place] please? Randy, AMBER, GARRETT [facility] * Telephone Encounter - Shannan Posey LPN - 12/26/2021 1:50 PM EDT Please advise if pt should be taking additional medication Per hospital note pt was to be on through today * Telephone Encounter - JAH Salazar - 12/26/2021 1:12 PM EDT Pt return call. Please call back [phone]. [facility] called and he got another prescription of Dificid and doesn't know if he should take it. * Telephone Encounter - Shannan Posey LPN - 12/26/2021 8:34 AM EDT Called pt to get additional insurance information that may be needed as well as to clarify if pt istaking Dificid (per hospital discharge pt is to be taking through today) received a form stating itwas not covered through [facility] card d/t duplicate therapy. * Telephone Encounter - Shannan Posey LPN - 12/25/2021 2:36 PM EDT Faxed demographics to [facility] for information * Telephone Encounter - JAH Queen - 12/25/2021 12:07 PM EDT Samantha calling from [facility] requesting patients medicare numbers and also need to know if patienthas a secondary insurance please assist with this documented in this encounter Plan of Treatment Upcoming Encounters Date Type Specialty Care Team Description 01/28/2022 Office Visit Family Medicine Kavya Dillard CRNP [address] [place] [address] 02/10/2022 Office Visit Gastroenterology Nisreen Jennings CRNP [address] [place] [address] Scheduled Referrals Name Type Priority Associated Diagnoses Orde r Schedule GASTROENTEROLOGY REFERRAL OP Referral Within 3 days (urgent) Recurrent colitis due to Clostridioides difficile Ordered: 12/26/2021 Health Maintenance Due Date Last Done Comments [...] 10/20/2017 LUNG CANCER SCREENING - USE SMARTSET [id number] Completed 06/23/2017 Pneumococcal Vaccine: 65+ Years Completed [...] Recurrent colitis due to Clostridioides difficile- Primary documented in this encounter Advance Directives Documents on File Type Date Recorded Patient Controller Instructor Expl anation Advanced Directive service a emelia [...] Directive Advanced Directive Advanced Directive Care Teams Airline Counter Agent Relationship Specialty Start Date End Date Kavya Dillard CRNP [address] [place] [address] PCP - General Nurse Practitioner 12/31/20 documented as of this encounter
--- OUTSIDE RECORDS SUMMARY | 2023-04-08 23:05 | External Medical Summary | Summary of Care ---
Author Name Unknown Organization [place] [address] Care Team Providers Care Dairy Lab Technician Name Role Phone Kavya Dillard Primary Care Provider Reason for Visit * Reason Comments Follow Up pt here for 4 week f ollow up with son, c/o ongoing diarrhea. pt also c/o R shoulder pain that has been ongoing Encounter Details Date Type Department Care Team Description 01/28/2022 Office Visit Family Practice [facility] [address] [place] [address] Kavya Dillard CRNP [address] [place] [address] Persistent atrial fibrillation (HCC)*; Anemia, unspecified type; Chronic respiratory failure with hypoxia, on home O2 therapy (HCC); COPD, group D, by GOLD 2017 classification (HCC); Recurrent colitis due to Clostridioides difficile Allergies No known active allergiesdocumented as of this encounter (statuses as of 01/28/2022) Medications Medication Sig Dispensed Refills Start Date [...] LPM continuous oxygen with exertion DME: [facility] Indications: Inc to 4LPM with ambulation/exerti [...] Respimat 1.25 MCG/ACT Inhalation Aerosol Solution (Tiotropium [place] Monohydrate) INHALE 2 PUFFS BY MOUTH EVERY [...] therapy ([facility]) TAKE 1 TABLET BY MOUTH EVERY DAY [...] as of this encounter (statuses as of 01/28/2022) Active Problems Problem Noted Date Anemia 01/28/2022 [...] as of this encounter (statuses as of 01/28/2022) Resolved Problems Problem Noted Date Resolved Date [...] as of this encounter (statuses as of 01/28/2022) Immunizations Name Administration Dates Next Due PPD [...] Sign Reading Time Taken Comments Blood Pressure 92/60 01/28/2022 5:32 PM EDT Pulse 98 01/28/2022 5:32 PM EDT Temperature 36.4 C (97.5 F) 01/28/2022 5:32 PM ED T Respiratory Rate 16 01/28/2022 5:32 PM EDT Oxygen Saturation - - Inhaled Oxygen Concentration - - Weight 46.3 kg (102 lb) 01/28/2022 5:32 PM EDT p t reports Height 167.6 cm (5' 6") 01/28/2022 5:32 PM EDT Body Mass Index 16.46 01/28/2022 5:32 PM EDT documented in this encounter Progress Notes * GARRETT Root - 01/28/2022 5:37 PM EDT Follow up Family Medicine Visit CC: Chief Complaint Patient presents with Follow Up pt here for 4 week follow up with son, c/o ongoing diarrhea. pt also c/o R shoulder pain that has been ongoing History of Present Illness: Jer Abreu Jr. is a 81 year old male presenting with his son for follow up of C diff colitis, severe protein calorie malnutrition. He was having diarrhea multiple times per day almost every 2 hours. But in the last week the diarrhea has been 4 times daily. Stopped difficid 1 week ago. Abdominal COPD: Stable. Still using oxygen. He stopped PT per his request. Able to walk with oxygen. Feels winded on 3lpm with exertion. Malnutrition: weight is down to 1 lb. He is drinking 2 protein shakes Per day. Social History Socioeconomic History Marital status: Spouse name: Not on file Number of children: 6 Years of education: Not on file Highest education level: Not on file Occupational History Not on file Tobacco Use Smoking status: Former Smoker Packs/day: 2.00 Years: 59.00 Pack years: 118.00 Types: Cigarettes Start date: 1954 Quit date: 04/07/2016 Years since quittin.8 Smokeless tobacco: Never Used Tobacco comment: started age 16 Vaping Use Vaping Use: [...] Date Acute exacerbation of COPD with asthma ([facility]) 04/23/2017 [facility] Arthritis Edentulous Gastroesophageal reflux disease with esophagitis Herpes zoster 01/11/2019 right neck and scalp Inflammation of sacroiliac joint ([facility]) 04/24/2005 Loss of teeth due to trauma, extraction, or periodontal disease Other disorders of vitreous 12/2000 Posterior vitreous detachment OS Other specified disorders of rotator cuff syndrome of shoulder and allied disorders 05/2004 right shoulder Pneumonia 06/13/2017 left basal infiltrate Pneumonia due to Pseudomonas ([facility]) 05/20/2017 Severe chronic obstructive pulmonary disease ([facility]) 10/28/2016 severe by ATS criteria. significant response [...] REMOVE CATARACT, INSERT LENS PROSTH Right 06/12/2019 [facility] REMOVE CATARACT, INSERT LENS PROSTH Left 06/26/2019 [facility] Outpatient Medications Marked as Taking for the 01/28/22 encounter (Office Visit) with GARRETT Root Medication Sig Potassium Chloride ER 20 MEQ Oral Tablet Extended Release Take by mouth 1 Tablet in the morning. Ventolin HFA 108 (90 Base) MCG/ACT Inhalation Aerosol Solution Inhale by mouth 2 Puffs every 4 hours as needed for Wheezing. Brand necessary Folic Acid 1 MG Oral Tablet TAKE 1 TABLET BY MOUTH EVERY DAY Omeprazole 40 MG Oral Capsule Delayed Release (PriLOSEC) TAKE 1 CAPSULE BY MOUTH DAILY. 1 HOUR BEFORE THE FIRST MEAL OF THE DAY Saccharomyces boulardii 250 MG Oral Capsule (Florastor) Take by mouth 250 mg in the morning. Florastor . Famotidine 20 MG Oral Tablet (Pepcid) Take by mouth 1 Tablet as needed before bedtime for Heartburn. Thiamine HCl 100 MG Oral Tablet (vitamin B-1) TAKE 1 TABLET BY MOUTH EVERY DAY Vitamin B-12 100 MCG Oral Tablet (vitamin B-12) TAKE 100 MCG BY MOUTH DAILY. Spiriva Respimat 1.25 MCG/ACT Inhalation Aerosol Solution (Tiotropium [place] Monohydrate) INHALE 2 PUFFS BY MOUTH EVERY DAY (Patient taking differently: Patient has been taking 2 x day? Instructed spouse only to be 1 x day. ) Fluticasone-Salmeterol 250-50 MCG/DOSE Inhalation Aerosol Powder Breath Activated (Advair Diskus) Inhale by mouth 1 Puff in the morning AND 1 Puff before bedtime. Brand necessary. Roflumilast 500 MCG Oral Tablet (Daliresp) Take by mouth 1 Tablet in the morning. oxygen IN GAS 2.5 lpm at rest 3 LPM continuous oxygen with exertion DME: [facility] Indications: Inc to 4LPM with ambulation/exertion acetaminophen (TYLENOL) 500 MG Tablet Take 500 [...] Systems: Review of Systems Constitutional: Positive for appetite change and fever. Negative for fatigue. Last week but resolved the next day Appetite improved Respiratory: Positive for cough, shortness of breath and wheezing. Negative for chest tightness. Cardiovascular: Negative for chest pain, palpitations and leg swelling. Gastrointestinal: Positive for diarrhea. Negative for abdominal pain, nausea and vomiting. Neurological: Negative for dizziness and syncope. Physical Exam: BP 92/60 (BP Site: Left Arm, BP Position: Sitting, BP Cuff Size: Regular) | Pulse 98 | Temp 36.4 C (97.5 F) (Tympanic) | Resp 16 | Ht 1.676 m (5' 6") | Wt 46.3 kg (102 lb) Comment: pt reports | BMI 16.46 kg/m | BSA 1.47 m Physical Exam Constitutional: Comments: cachetic HENT: Head: Normocephalic. Eyes: Pupils: Pupils are equal, round, and reactive to light. Cardiovascular: Rate and Rhythm: Normal rate and regular rhythm. Pulmonary: Effort: Pulmonary effort is normal. Breath sounds: Decreased breath sounds present. Abdominal: General: Bowel sounds are normal. Palpations: Abdomen is soft. Tenderness: There is no abdominal tenderness. Musculoskeletal: Right shoulder: Tenderness present. No swelling or bony tenderness. Decreased range of motion. Decreased strength. Neurological: Mental Status: He is alert and oriented to person, place, and time. Psychiatric: Attention and Perception: Attention normal. Mood and Affect: Mood normal. Speech: Speech normal. Behavior: Behavior normal. Behavior is cooperative. Thought Content: Thought content normal. Cognition and Memory: Cognition and memory normal. Judgment: Judgment normal. Assessment and Plan: 1. Anemia, unspecified type Recheck - CBC WITH WBC DIFFERENTIAL; Future 2. Persistent atrial fibrillation (HCC) HR reg today - COMPREHENSIVE METABOLIC PANEL; Future 3. Chronic respiratory failure with hypoxia, on home O2 therapy (HCC) On 3LPM 28/12 4. COPD, group D, by GOLD 2017 classification (HCC) Stable No recent exacerbation Continue spiriva Continue advair Continue duonebs prn 5. Recurrent colitis due to Clostridioides difficile Stopped difficid last week Diarrhea is now only 4 times day which is improved Keep GI appt I have advised the patient to call our office incase of any worsening or new symptoms. I spent a total of 30-39 minutes (exact time 30 mins) on the date of service in preparation, delivery, and documentation of the care provided to Jer Abreu Jr. excluding any time spent in the performance of separately billed services. Randy, AMBER, GARRETT [facility] documented in this encounter Plan of Treatment Upcoming Encounters Date Type Specialty Care Team Description 02/10/2022 Office Visit Gastroenterology Nisreen Jennings CRNP [address] [place] [address] [place] [address] Scheduled Orders Name Type Priority Associated Diagnoses Orde r Schedule CBC WITH WBC DIFFERENTIAL Lab Routine Anemia, unspecified type Expected: 01/28/2022, Expires: 02/28/2023 COMPREHENSIVE METABOLIC PANEL Lab Routine Persistent atrial fibrillation (HCC) Expected: 01/28/2022 (Approximate), Expires: 01/28/2023 Health Maintenance Due Date Last Done Comments [...] 10/20/2017 LUNG CANCER SCREENING - USE SMARTSET [id number] Completed 06/23/2017 Pneumococcal Vaccine: 65+ Years Completed [...] as of this encounter Visit Diagnoses Diagnosis Persistent atrial fibrillation (HCC)- Primary Atrial fibrillation Anemia, unspecified type Chronic respiratory failure with hypoxia, on home O2 therapy (HCC) COPD, group D, 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
--- OUTSIDE RECORDS SUMMARY | 2023-04-08 23:05 | External Medical Summary | Summary of Care ---
Author Name Unknown Organization [place] [address] Care Team Providers Care Diver Assistant Name Role Phone Kavya Dillard Yoanna TUCKER Primary Care Provider Reason for Visit * Reason Onset Date Comments case management 01/19/2022 MyG for 3 mo upd ate Encounter Details Date Type Department Care Team Description 01/19/2022 Short Story Writer Telephone Care Coordination [address] [place] [address] Roseanne Emerson, RN [address] [place] [address] case management (MyG for 3 mo update) Allergies No known active allergiesdocumented as of this encounter (statuses as of 01/19/2022) Medications Medication Sig Dispensed Refills Start Date [...] LPM continuous oxygen with exertion DME: [facility] Indications: Inc to 4LPM with ambulation/exerti on 1 Each 0 04/01/2021 Active Roflumilast 500 MCG Oral Tablet (Daliresp) Take by mouth 1 Tablet in the morning. 180 Tablet 4 08/25/2021 Active Additional Information Patient not taking. Reported on 12/16/2021 Fluticasone-Salmeter ol 250-50 MCG/DOSE Inhalation Aerosol Powder Breath Activated (Advair Diskus)Indications:S OB (shortness of breath) Inhale by mouth 1 Puff in the morning AND 1 Puff before bedtime. Brand necessary. 3 Each 3 09/10/2021 Active Spiriva Respimat 1.25 MCG/ACT Inhalation Aerosol Solution (Tiotropium [place] Monohydrate) INHALE 2 PUFFS BY MOUTH EVERY [...] hypoxia, on home O2 therapy ([facility]) TAKE 1 TABLET BY MOUTH EVERY DAY 90 Tablet 3 12/24/2021 Active Saccharomyces boulardii 250 MG Oral Capsule (Florastor) Take by mouth 250 mg in the morning. Florastor . 0 Active Ventolin HFA 108 (90 Base) MCG/ACT Inhalation Aerosol SolutionIndications: COPD, group D, by GOLD 2017 classification ([facility]) Inhale by mouth 2 Puffs every 4 hours as needed for Wheezing. Brand necessary 54 g 3 01/12/2022 Active Potassium Chloride ER 20 MEQ Oral Tablet Extended Release Take by mouth 1 Tablet in the morning. 30 Tablet 3 01/15/2022 Active documented as of this encounter (statuses as of 01/19/2022) Active Problems Problem Noted Date Recurrent colitis [...] as of this encounter (statuses as of 01/19/2022) Resolved Problems Problem Noted Date Resolved Date [...] as of this encounter (statuses as of 01/19/2022) Immunizations Name Administration Dates Next Due PPD [...] Telephone Encounter - Roseanne Emerson RN - 01/19/2022 5:17 PM EDT See MyG documented in this encounter Plan of Treatment Upcoming Encounters Date Type Specialty Care Team Description 01/28/2022 Office Visit Family Medicine Kavya Dillard CRNP [address] [facility] [place] [address] 02/10/2022 Office Visit Gastroenterology Nisreen Jennings CRNP [address] [facility] [place] [address] Health Maintenance Due Date Last Done Comments [...] 10/20/2017 LUNG CANCER SCREENING - USE SMARTSET [id number] Completed 06/23/2017 Pneumococcal Vaccine: 65+ Years Completed [...] Documents on File Type Date Recorded Patient Family Medicine Resident Expl anation Advanced Directive service a emelia [...] Directive Advanced Directive Advanced Directive Care Teams Diver Assistant Relationship Specialty Start Date End Date Kavya Dillard CRNP [address] [facility] [place] [address] PCP - General Nurse Practitioner 12/31/20 documented as of this encounter
--- OUTSIDE RECORDS SUMMARY | 2023-04-08 23:05 | External Medical Summary | Summary of Care ---
Author Name Unknown Organization [place] [address] Care Team Providers Care Collarette Separator Name Role Phone Kavya Dillard Primary Care Provider Reason for Referral * Evaluate & Treat - Unlimited Visits (Within 3 days (urgent)) - Authorized Specialty Diagnoses / Procedures Referred By Nicole cisse Referred To Contact Gastroenterology Diagnoses Recurrent colitis due to Clostridioides difficile Kavya Dillard CRNP [address] [place] [address] Referral ID Status Reason Start Date Expiration Date Visits Requested Visits Authorized [id number] Authorized Specialty Services Required 12/26/[phone] Question Answer Referral Priority Within 3 days (urgent) For what condition is the patient being referred? 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 Reason for Visit * Reason Onset Date Comments Advice 12/25/2021 Encounter Details Date Type Department Care Team Description 12/25/2021 Telephone Family Practice [facility] [address] [place] [address] Kavya Dillard CRNP [address] [place] [address] Advice Allergies No known active allergiesdocumented as of this encounter (statuses as of 01/06/2022) Medications Medication Sig Dispensed Refills Start Date [...] LPM continuous oxygen with exertion DME: [facility] Indications: [...] Respimat 1.25 MCG/ACT Inhalation Aerosol Solution (Tiotropium [place] Monohydrate) INHALE 2 PUFFS BY MOUTH EVERY [...] Wheezing. Brand necessary 54 g 3 08/06/2020 Discontinue d(Refill) documented as of this encounter (statuses as of 01/06/2022) Active Problems Problem Noted Date Recurrent colitis [...] as of this encounter (statuses as of 01/06/2022) Resolved Problems Problem Noted Date Resolved Date [...] as of this encounter (statuses as of 01/06/2022) Immunizations Name Administration Dates Next Due PPD [...] Telephone Encounter - Madan Enrique RN - 01/06/2022 9:54 AM EDT Called, no answer, sent straight to , did not leave . * Telephone Encounter - Madan Enrique RN - 01/02/2022 12:01 PM EDT Called patients son to discuss, no answer, LMOM with return # to discuss. * Telephone Encounter - GARRETT Smith - 01/02/2022 11:51 AM EDT Thanks you. Please let them know as I had thought earlier, [facility] is not conducting fecal transplant currently due to COVID restriction on obtaining stool. Again they should call their insurance as see what may be in network for them to travel to get the stool transplant complete. Previously, [facility] was doing fecal transplant and so was [facility]. GARRETT Colon 01/02/2022 11:55 AM * Telephone [...] is promise and can be reached at [phone]. * Telephone Encounter - JAH Pollard - 12/29/2021 4:42 PM EDT Please reach out to patient to schedule with Gastro for fecal transplant per Kavya Dillard. Thank you * Telephone Encounter - GARRETT Smith - 12/29/2021 1:52 PM EDT Is [facility] doing fecal transplants again? I had previously [...] assist with referral for fecal transplant in [place] please? Randy, MSN, GARRETT [facility] * Telephone Encounter - Shannan Posey LPN - 12/26/2021 1:50 PM EDT Please advise if pt should be taking additional medication Per hospital note pt was to be on through today * Telephone Encounter - JAH Salazar - 12/26/2021 1:12 PM EDT Pt return call. Please call back [phone]. [facility] and [facility] got another prescription [...] 12/25/2021 2:36 PM EDT Faxed demographics to [facility] for information * Telephone Encounter - JAH Queen - 12/25/2021 12:07 PM EDT Samantha calling from [facility] requesting patients medicare numbers and also need to know if patienthas a secondary insurance please assist with this documented in this encounter Plan of Treatment Upcoming Encounters Date Type Specialty Care Team Description 01/28/2022 Office Visit Family Medicine Kavya Dillard CRNP [address] [facility] [place] [address] 02/10/2022 Office Visit Gastroenterology Nisreen Jennings, GARRETT [address] [place] [address] Scheduled Referrals Name Type Priority Associated Diagnoses [...] 10/20/2017 LUNG CANCER SCREENING - USE SMARTSET [id number] Completed 06/23/2017 Pneumococcal Vaccine: 65+ Years Completed [...] Documents on File Type Date Recorded Patient Interchange Agent Expl anation Advanced Directive service a emelia [...] Directive Advanced Directive Advanced Directive Care Teams Collarette Separator Relationship Specialty Start Date End Date Kavya Dillard CRNP [address] [place] [address] PCP - General Nurse Practitioner 12/31/20 documented as of this encounter
--- OUTSIDE RECORDS SUMMARY | 2023-04-08 23:05 | External Medical Summary ---
Author Name Unknown Address Unknown Organization [id number]:LABORATORY [facility] - [address] [facility] [address] Laboratory Report Ordering Provider Test Date Status ORVILLE SMITH 02/06/2022 16:07:50 Final Observation Date Value Abnormality Reference (Units ) Status SYNC LEUKOCYTES IN BLOOD BY AUTOMATED COUNT 02/06/2022 16:07:50 10.88 Above high normal 4.00-10.80 (K/uL) Final Segs 02/06/2022 16:07:50 55.5 40.0-75.0 (%) Final Lymphs % 02/06/2022 16:07:50 29.9 18.0-42.0 (%) Final Monos 02/06/2022 16:07:50 8.9 1.0-11.0 (%) Final Eosinophils 02/06/2022 16:07:50 4.7 0.0-6.0 (%) Final Basos 02/06/2022 16:07:50 0.5 0.0-2.0 (%) Final Immature Granulocyte, Percent 02/06/2022 16:07:50 0.5 0.0-2.0 (%) Final Absolute Segs 02/06/2022 16:07:50 6.05 1.80-7.70 (K/uL) Final Lymphs, absolute 02/06/2022 16:07:50 3.25 1.00-4.80 (K/ul) Final Monos, Abs 02/06/2022 16:07:50 0.97 0.00-1.10 (K/uL) Final Eos, Abs 02/06/2022 16:07:50 0.51 0.00-0.70 (K/uL) Final Basos, Abs 02/06/2022 16:07:50 0.05 0.00-0.20 (K/uL) Final Immature Granulocytes, Number 02/06/2022 16:07:50 0.05 0.00-0.20 (K/uL) Final Performing Location LABORATORY [facility] [place] - [address] [facility] [address]
--- OUTSIDE RECORDS SUMMARY | 2023-04-08 23:05 | External Medical Summary | Summary of Care ---
Author Name Unknown Organization [place] [address] Care Team Providers Care Radio Engineer Name Role Phone Kavya Dillard Primary Care Provider Reason for Visit * Reason Comments Follow Up c diff, 4 week follo w up, * Evaluate & Treat - Unlimited Visits (Within 3 days (urgent)) - Authorized Specialty Diagnoses / Procedures Referred By Nicole cisse Referred To Contact Gastroenterology Diagnoses Recurrent colitis due to Clostridioides difficile Kavya Dillard CRNP [address] [place] [address] Referral ID Status Reason Start Date Expiration Date Visits Requested Visits Authorized [id number] Authorized Specialty Services Required 12/26/[phone] Encounter Details Date Type Department Care Team Description 02/10/2022 Office Visit Gastroenterology, [facility] [address] [address] Nisreen Jennings CRNP [address] [place] [address] C. difficile colitis*; Chronic diarrhea; Diarrhea of presumed infectious origin [...] LPM continuous oxygen with exertion DME: [facility] Indications: Inc to 4LPM with ambulation/exerti on [...] Respimat 1.25 MCG/ACT Inhalation Aerosol Solution (Tiotropium Sunflower Monohydrate) INHALE 2 PUFFS BY MOUTH EVERY [...] 2017 classification ([facility]) Inhale by mouth 2 [...] Sign Reading Time Taken Comments Blood Pressure 98/54 02/10/2022 12:01 PM EDT Pulse 82 02/10/2022 12:01 PM EDT Temperature 36.5 C (97.7 F) 02/10/2022 1 2:01 PM EDT Respiratory Rate - - Oxygen Saturation 98% 02/10/2022 12: 01 PM EDT Inhaled Oxygen Concentration - - Weight 46.7 kg (103 lb) 02/10/2022 12:0 1 PM EDT per pt , in W/C didnt want to get weighed Height - - Body Mass Index 16.62 01/28/2022 5:32 PM EDT documented in this encounter Progress Notes * GARRETT Smith - 02/10/2022 12:00 PM EDT DATE OF SERVICE: 02/10/2022 REFERRING PHYSICIAN: GARRETT Root CC: Follow up Office Visit 02/10/2022 : Stopped Dificid per ID. Notes that in the beginning of this he felt well but now his diarrhea is back. Suggests today he has moved loose stool 4 x. In a 24 hour period notes he went about 5/6 times. Can still wake up at night to t move bowels. No black or bloody stools. No abd pain. Tolerating PO. No nausea, vomiting.No dysphagia. No fever, chills, CP, SOB. Telephone Visit 12/17/2021: After connecting to the patient via telephone, the patient was identified by name and date of . Patient was then informed that this was a telephone call only visit. The patient agreed to participate. Visit Disposition: Routine follow-up Total call duration was 11-20 minutes. Was re admitted. Saw PCP yesterday. Is on Dificid and Florastor. Feeling okay. Bowels okay - is having soft stools. Slightly more frequent. But improved from the admission. No black or bloodystools. No fever, chills, CP, SOB. Office Visit 10/29/2021 :80year oldmale with history ofCOPD, others below who was recently admitted to [facility], was followed my [facility] during admission for c.diff infection. Treated w/ Dificid and advised to wake questran PRN diarrhea and probiotic. Here for follow up hospital admission.Presently on a tapering course of Vancomycin. Is taking this twice daily. No abd pain. Some cramping. Tolerating PO intake well. No nausea, vomiting. Moving bowels okay - soft stools. No diarrhea. Bowels moving 2-4 times daily. No black or bloody stools. No fever, chills, CP, SOB. Has never had a colonoscopy - does not want to have this test done. Results for BRADFORD JR. JER Mccarty ( ) as of 02/10/2022 12:18 Ref. Range 02/06/2022 16:07 BUN Latest Ref Range: 6 - 20 mg/dL 19 Creatinine Latest Ref Range: 0.6 - 1.2 mg/dL 0.9 Estimated Glomerular Filtration Rate Latest Ref Range: >=60 mL/min 82 C.diff 09/27/21 + C.diff 09/06/21 + No family history of IBD Brother had a colon cancer, family history of colon polyps Past Medical History: Diagnosis Date Acute exacerbation of COPD with asthma ([facility]) 04/23/2017 [facility] Arthritis Edentulous Gastroesophageal reflux disease with esophagitis Herpes zoster 01/11/2019 right neck and scalp Inflammation of sacroiliac joint ([facility]) 04/24/2005 Loss of teeth due to trauma, extraction, or periodontal disease Other disorders of vitreous 12/2000 Posterior vitreous detachment OS Other specified disorders of rotator cuff syndrome of shoulder and allied disorders 05/2004 right shoulder Pneumonia 06/13/2017 left basal infiltrate Pneumonia due to Pseudomonas ([facility]) 05/20/2017 Severe chronic obstructive pulmonary disease ([facility]) 10/28/2016 severe by ATS criteria. significant response after bronchodilator TICK BITE RIGHT FOOT 02/2005 Tobacco use disorder Family History Problem Relation Age of Onset COPD Father Cancer Sister Cancer Brother Diabetes No significant family history Ear Problems No significant family history Endocrine Disorder No significant family history Eye Problems No significant family history Heart Disorder No significant family history Hypertension No significant family history Renal Hx No significant family history Stroke No significant family history Past Surgical History: Procedure Laterality Date CT [...] REMOVE CATARACT, INSERT LENS PROSTH Right 06/12/2019 [facility] REMOVE CATARACT, INSERT LENS PROSTH Left 06/26/2019 [facility] Social History Tobacco Use Smoking status: Former Smoker Packs/day: 2.00 Years: 59.00 Pack years: 118.00 Types: Cigarettes Start date: 1954 Quit date: 04/07/2016 Years since quittin.8 Smokeless tobacco: Never Used Tobacco comment: started age 16 Vaping Use Vaping Use: Never used Substance Use Topics Alcohol use: Yes Comment: 3-4 beers per day. Was drinking 8 per day. Drug use: No Review of patient's allergies indicates: No Known Allergies Current Outpatient Medications Medication Sig Dispense Refill [...] LPM continuous oxygen with exertion DME: [facility] Indications: Inc to 4LPM with ambulation/exertion 1 Each 0 Roflumilast 500 MCG Oral Tablet (Daliresp) Take by mouth 1 Tablet in the morning. 180 Tablet 4 Fluticasone-Salmeterol 250-50 MCG/DOSE Inhalation Aerosol Powder Breath Activated (Advair Diskus) Inhale by mouth 1 Puff in the morning AND 1 Puff before bedtime. Brand necessary. 3 Each 3 Spiriva Respimat 1.25 MCG/ACT Inhalation Aerosol Solution (Tiotropium Sunflower Monohydrate) INHALE 2 PUFFS BY MOUTH EVERY DAY (Patient taking differently: Patient has been taking 2 x day? Instructed spouse only to be 1 x day. ) 12 g 1 Thiamine HCl 100 MG Oral Tablet (vitamin B-1) TAKE 1 TABLET BY MOUTH EVERY DAY 90 Tablet 3 Vitamin B-12 100 MCG Oral Tablet (vitamin B-12) TAKE 100 MCG BY MOUTH DAILY. 90 Tablet 3 Famotidine 20 MG Oral Tablet (Pepcid) Take by mouth 1 Tablet as needed before bedtime for Heartburn. 30 Tablet 11 Omeprazole 40 MG Oral Capsule Delayed Release (PriLOSEC) TAKE 1 CAPSULE BY MOUTH DAILY. 1 HOUR BEFORE THE FIRST MEAL OF THE DAY 90 Capsule 1 Folic Acid 1 MG Oral Tablet TAKE 1 TABLET BY MOUTH EVERY DAY 90 Tablet 3 Saccharomyces boulardii 250 MG Oral Capsule (Florastor) Take by mouth 250 mg in the morning. Florastor . Ventolin HFA 108 (90 Base) MCG/ACT Inhalation Aerosol Solution Inhale by mouth 2 Puffs every 4 hours as needed for Wheezing. Brand necessary 54 g 3 Potassium Chloride ER 20 MEQ Oral Tablet Extended Release Take by mouth 1 Tablet in the morning. 30 Tablet 3 Dificid 200 MG Oral Tablet Take by mouth 200 mg . (Patient not taking: Reported on 02/10/2022 ) No current facility-administered medications for this visit. REVIEW OF SYSTEMS: All other findings negative except as noted in HPI. EXAM: BP 98/54 | Pulse 82 | Temp 36.5 C (97.7 F) | Wt 46.7 kg (103 lb) Comment: per pt , in W/C didntwant to get weighed | SpO2 98% | BMI 16.62 kg/m | BSA 1.47 m GENERAL: Well developed and well nourished in no acute distress. SKIN: No rashes, ulcers, jaundice HEENT: Normocephalic, sclera clear NECK: Supple LUNGS: Clear to auscultation bilaterally, no respiratory distress or accessory muscles used. HEART: Regular rate & rhythm, no murmurs and no gallops. ABDOMEN: Normal bowel sounds, soft and nontender, no masses or hepatosplenomegaly. EXTREMITIES: No palmar erythema, no ankle edema, NEURO: No lateralizing findings. Sensory/Motor grossly normal. DIAGNOSTIC TEST: Clostridium difficile, pcr Gastrointestinal pathogen panel, stool Fecal fat, qualitative Regional parasite antigen screen Colonoscopy, diagnostic (rectum) ASSESSMENT AND PLAN: 81 year old male, recurrent c.diff, on Dificid directed by ID, who recommend fecal transplant. Unfortunately, we are not offering these at this time due to COVID restrictions. Worse diarrhea since his Dificid course was completed - Submit stools - Avoid unnecessary ABX use -Can continue Florastor - Hand hygiene with soap and water - Clean bathroom with bleach products - If c.diff negative, colonoscopy - ED for emergencies - Please call with any questions or concerns RETURN TO CLINIC: After above I spent a total of 30 minutes on the date of service in review of patient's record, and previously obtained information in person and appropriate medical visit, discussion and education of plan, withpatient and/or caregiver, placing orders for tests/referral/procedures as medically necessary and documentation of pertinent clinical information in patient's medical records for their visit today. GARRETT Colon 02/10/2022 12:25 PM documented in this encounter Nursing Notes * Elva Oliveira LPN - 02/10/2022 12:04 PM EDT Patient identified by name and date of . Chief Complaint Patient presents with Follow Up c diff, 4 week follow up, Pt presents here today with his son, olivia. Pt is here for a 4 week follow up since dx with c diff. Pt states he feels he still has it. Pt having 1-5 BM's a day. Pt finished dificid per son. Pt does still take the florastar. Pt denies blood or mucous in stools and abd pain. documented in this encounter Plan of Treatment Upcoming Encounters Date Type Specialty Care Team Description 02/10/2022 Laboratory Laboratory Beth Doshi [address] [facility] [address] [place] [address] Arrived 05/06/2022 Procedure Only Endoscopy Marsha Lara DO [address] [facility] [address] [place] [address] Scheduled Orders Name Type Priority Associated Diagnoses Orde r Schedule CLOSTRIDIUM DIFFICILE, PCR Lab Routine C. difficile colitis Chronic diarrhea Expected: 02/10/2022, Expires: 02/10/2023 COLONOSCOPY, DIAGNOSTIC (RECTUM) Procedures Routine C. difficile colitis Chronic diarrhea Ordered: 02/10/2022 GASTROINTESTINAL PATHOGEN PANEL, STOOL Lab Routine C. difficile colitis Chronic diarrhea Diarrhea of presumed infectious origin Expected: 02/10/2022, Expires: 02/10/2023 FECAL FAT, QUALITATIVE Lab Routine C. difficile colitis Chronic diarrhea Expected: 02/10/2022, Expires: 02/10/2023 REGIONAL PARASITE ANTIGEN SCREEN Lab Routine C. difficile colitis Chronic diarrhea Expected: 02/10/2022, Expires: 02/10/2023 Scheduled Procedures Name Priority Associated Diagnoses Date/Ti [...] 10/20/2017 LUNG CANCER SCREENING - USE SMARTSET 12365 Completed 06/23/2017 Pneumococcal Vaccine: 65+ Years Completed [...] this encounter Visit Diagnoses Diagnosis C. difficile colitis- Primary Intestinal infection due to clostridium difficile Chronic diarrhea Diarrhea Diarrhea of presumed infectious origin Diarrhea of presumed infectious origin documented in this encounter Advance Directives Documents on File Type Date Recorded Patient Copy Room Technician Expl anation Advanced Directive service a emelia [...] Directive Advanced Directive Advanced Directive Care Teams Radio Engineer Relationship Specialty Start Date End Date Kavya Dillard CRNP [address] [facility] [address] [place] [address] PCP - General Nurse Practitioner 12/31/20 documented as of this encounter"
--- OUTSIDE RECORDS SUMMARY | 2023-04-08 23:05 | External Medical Summary | Summary of Care ---
Author Name Unknown Organization [place] [address] Care Team Providers Care Potato Chip Maker Name Role Phone Kavya Dillard Primary Care Provider Reason for Referral * Evaluate & Treat - Unlimited Visits (Within 3 days (urgent)) - Authorized Specialty Diagnoses / Procedures Referred By Nicole cisse Referred To Contact Gastroenterology Diagnoses Recurrent colitis due to Clostridioides difficile Kavya Dillard CRNP [address] [address] Referral ID Status Reason Start Date Expiration Date Visits Requested Visits Authorized [id number] Authorized Specialty Services Required 12/26/[phone] Question Answer Referral Priority Within 3 days (urgent) For what condition is the patient being referred? 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 Reason for Visit * Reason Onset Date Comments Advice 12/25/2021 Encounter Details Date Type Department Care Team Description 12/25/2021 Telephone Family Practice [facility] [address] [address] Kavya Dillard CRNP [address] [address] Advice Allergies No known active allergiesdocumented as [...] continuous oxygen with exertion DME: [facility] Indications: Inc to 4LPM with ambulation/exerti [...] Respimat 1.25 MCG/ACT Inhalation Aerosol Solution (Tiotropium [place] Monohydrate) INHALE 2 PUFFS BY MOUTH EVERY [...] was doing fecal transplant and so was [facility]. GARRETT Colon 01/02/2022 11:55 AM * [...] is promise and can be reached at [phone]. * Telephone Encounter - JAH Pollard - 12/29/2021 4:42 PM EDT Please reach out to patient to schedule with Gastro for fecal transplant per Kavya Dillard. Thank you * Telephone Encounter - GARRETT Smith - 12/29/2021 1:52 PM EDT Is [place] doing fecal transplants again? I had previously [...] assist with referral for fecal transplant in [place] please? Randy, MSN, GARRETT [facility] * Telephone Encounter - Shannan Posey LPN - 12/26/2021 1:50 PM EDT Please advise if pt should be taking additional medication Per hospital note pt was to be on through today * Telephone Encounter - JAH Salazar - 12/26/2021 1:12 PM EDT Pt return call. Please call back [phone]. [facility] called and he got another prescription [...] 12/25/2021 2:36 PM EDT Faxed demographics to [facility] for information * Telephone Encounter - JAH Queen - 12/25/2021 12:07 PM EDT Samantha calling from [facility] requesting patients medicare numbers and also need to know if patienthas a secondary insurance please assist with this documented in this encounter Plan of Treatment Upcoming Encounters Date Type Specialty Care Team Description 01/28/2022 Office Visit Family Medicine Kavya Dillard CRNP [address] [facility] [address] [place] [address] 02/10/2022 Office Visit Gastroenterology Nisreen Jennings, GARRETT [address] [place] [address] Scheduled Referrals Name Type Priority Associated Diagnoses [...] 10/20/2017 LUNG CANCER SCREENING - USE SMARTSET 40532 Completed 06/23/2017 Pneumococcal Vaccine: 65+ Years Completed [...] Documents on File Type Date Recorded Patient Rfid Analyst Expl anation Advanced Directive service a emelia [...] Directive Advanced Directive Advanced Directive Care Teams Potato Chip Maker Relationship Specialty Start Date End Date Kavya Dillard CRNP [address] [address] PCP - General Nurse Practitioner 12/31/20 documented as of this encounter
--- OUTSIDE RECORDS SUMMARY | 2023-04-08 23:05 | External Medical Summary | Summary of Care ---
Author Name Unknown Organization [place] [address] Care Team Providers Care Management Architect Name Role Phone Kavya Dillard Primary Care Provider Reason for Referral * Evaluate & Treat - Unlimited Visits (Within 3 days (urgent)) - Authorized Specialty Diagnoses / Procedures Referred By Nicole cisse Referred To Contact Gastroenterology Diagnoses Recurrent colitis due to Clostridioides difficile Kavya Dillard CRNP [address] [address] Referral ID Status Reason Start Date Expiration Date Visits Requested Visits Authorized [id number] Authorized Specialty Services Required 12/26/[phone] Question Answer Referral Priority Within 3 days (urgent) For what condition is the patient being referred? 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 Reason for Visit * Reason Onset Date Comments Advice 12/25/2021 Encounter Details Date Type Department Care Team Description 12/25/2021 Telephone Family Practice [facility] [address] [address] Kavya Dillard CRNP [address] [address] Advice Allergies No known active allergiesdocumented as [...] 3 LPM continuous oxygen with exertion DME: [facility] Indications: Inc to 4LPM with ambulation/exertio [...] Respimat 1.25 MCG/ACT Inhalation Aerosol Solution (Tiotropium [place] Monohydrate) INHALE 2 PUFFS BY MOUTH EVERY [...] to get the stool transplant complete. Previously, [facility] was doing fecal transplant and so was [facility]. GARRETT Colon 01/02/2022 11:55 AM [...] is promise and can be reached at [phone]. * Telephone Encounter - JAH Pollard - 12/29/2021 4:42 PM EDT Please reach out to patient to schedule with Gastro for fecal transplant per Kavya Dillard. Thank you * Telephone Encounter - GARRETT Smith - 12/29/2021 1:52 PM EDT Is [place] doing fecal transplants again? I had previously [...] assist with referral for fecal transplant in [place] please? Randy, AMBER, REFRIGERATION PERSON [facility] * Telephone Encounter - Shannan Posey LPN - 12/26/2021 1:50 PM EDT Please advise if pt should be taking additional medication Per hospital note pt was to be on through today * Telephone Encounter - JAH Salazar - 12/26/2021 1:12 PM EDT Pt return call. Please call back [phone]. [facility] and he got another prescription [...] 12/25/2021 2:36 PM EDT Faxed demographics to [facility] for information * Telephone Encounter - JAH Queen - 12/25/2021 12:07 PM EDT Samantha calling from [facility] requesting patients medicare numbers and also need to know if patienthas a secondary insurance please assist with this documented in this encounter Plan of Treatment Upcoming Encounters Date Type Specialty Care Team Description 01/28/2022 Office Visit Family Medicine Kavya Dillard CRNP [address] [address] 02/10/2022 Office Visit Gastroenterology Nisreen Jennings CRNP [address] [address] Scheduled Referrals Name Type Priority Associated Diagnoses [...] 10/20/2017 LUNG CANCER SCREENING - USE SMARTSET [address]2578 Completed 06/23/2017 Pneumococcal Vaccine: 65+ Years Completed [...] Documents on File Type Date Recorded Patient Brood Hatchery Manager Expl anation Advanced Directive service a emelia [...] Directive Advanced Directive Advanced Directive Care Teams Management Architect Relationship Specialty Start Date End Date Kavya Dillard CRNP [address] [address] PCP - General Nurse Practitioner 12/31/20 documented as of this encounter
--- OUTSIDE RECORDS SUMMARY | 2023-04-08 23:05 | External Medical Summary | Summary of Care ---
Author Name Unknown Organization [place] [address] Care Team Providers Care Heavy Lift Rigger Name Role Phone Kavya Jacinto Primary Care Provider Reason for Visit * Reason Onset Date Comments Medication Refill 01/15/2022 Encounter Details Date Type Department Care Team Description 01/15/2022 Refill Family [facility] [address] [facility] [address] Kavya Jacinto CRNP [address] [place] [address] Allergies No known active allergiesdocumented as of this encounter (statuses as of 01/15/2022) Medications Medication Sig Dispensed Refills Start Date [...] [facility]: Inc to 4LPM with ambulation/exert [...] Respimat 1.25 MCG/ACT Inhalation Aerosol Solution (Tiotropium [place] Monohydrate) INHALE 2 PUFFS BY MOUTH EVERY [...] :COPD, group D, by GOLD 2017 classification ([facility]) Inhale by mouth 2 Puffs every 4 hours as needed for Wheezing. Brand necessary 54 g 3 01/12/2022 Active Potassium Chloride ER 20 MEQ Oral Tablet Extended Release Take by mouth 1 Tablet in the morning. 30 Tablet 3 01/15/2022 Active Potassium Chloride ER 20 MEQ Oral Tablet Extended Release Take by mouth 1 Tablet in the morning. 30 Tablet 3 10/22/2021 2 Discontinu ed(Refill) documented as of this encounter (statuses as of 01/15/2022) Active Problems Problem Noted Date Recurrent colitis [...] as of this encounter (statuses as of 01/15/2022) Resolved Problems Problem Noted Date Resolved Date [...] as of this encounter (statuses as of 01/15/2022) Immunizations Name Administration Dates Next Due PPD [...] Miscellaneous Notes * Telephone Encounter - GARRETT Roto - 01/15/2022 12:24 PM EDT Signed Prescriptions: Disp Refills Potassium Chloride ER 20 MEQ Oral Tablet E*30 Tab*3 Sig: Take by mouth 1 Tablet in the morning. Authorizing Provider: KAVYA JACINTO * Telephone Encounter - Jossie Zavala LPN - 01/15/2022 11:10 AM EDT Pending Prescriptions: Disp Refills Potassium Chloride ER 20 MEQ Oral Tablet *30 Tab*3 Sig: Take by mouth 1 Tablet in the morning. * Telephone Encounter - JAH Lopez - 01/15/2022 10:44 AM EDT Did you pend patient's preferred pharmacy and medication before forwarding?yes Pharmacy: [id number] [address] [place] [address] Pending Prescriptions: Disp Refills Potassium Chloride ER 20 MEQ Oral Tablet *30 Tab*3 Sig: Take by mouth 1 Tablet in the morning. Last Visit: 12/16/2021 (in office), Visit date not found (telemedicine) Next Visit: 01/28/2022 If no future appointments scheduled, and last appointment is greater than a year ago, please schedule patient for a follow-up appointment Last date the medication was ordered: 10/22/2021 Is this request for a controlled substance?No [...] Medicine Kavya Jacinto CRNP [address] [address] 02/10/2022 Office Visit Gastroenterology Nisreen Jennings CRNP [address] [address] Health Maintenance Due Date Last Done Comments [...] 10/20/2017 LUNG CANCER SCREENING - USE SMARTSET 18179 Completed 06/23/2017 Pneumococcal Vaccine: 65+ Years Completed [...] Documents on File Type Date Recorded Patient Technician Telecommunication Systems Expl anation Advanced Directive service a emelia [...] Directive Advanced Directive Advanced Directive Care Teams Heavy Lift Rigger Relationship Specialty Start Date End Date Kavya Jacinto CRNP [address] [facility] [address] [place] [address] PCP - General Nurse Practitioner 12/31/20 documented as of this encounter
--- OUTSIDE RECORDS SUMMARY | 2023-04-08 23:06 | External Medical Summary | Summary of Care ---
Author Name Unknown Organization [place] [address] Care Team Providers Care Personnel Officer Name Role Phone Kavya Dillard Primary Care Provider Reason for Visit * Reason Onset Date Comments Appointment 12/18/2021 Encounter Details Date Type Department Care Team Description 12/18/2021 Telephone Gastroenterology, [facility] [address] [facility] [place] [address] Nisreen Jennings CRNP [address] [facility] [place] [address] Appointment Allergies No known active allergiesdocumented as of this encounter (statuses as of 12/18/2021) Medications Medication Sig Dispensed Refills Start Date [...] LPM continuous oxygen with exertion DME: [facility] Indications: Inc to 4LPM with ambulation/exertion 1 Each 0 04/01/2021 Active Folic Acid 1 MG Oral TabletIndications:C hronic respiratory failure with hypoxia, on home O2 therapy (HCC) TAKE 1 TABLET BY MOUTH EVERY DAY 90 Tablet 2 05/08/2021 Active Roflumilast 500 MCG Oral Tablet (Daliresp) [...] Respimat 1.25 MCG/ACT Inhalation Aerosol Solution (Tiotropium [place] Monohydrate) INHALE 2 PUFFS BY MOUTH EVERY DAY 12 g 1 09/20/2021 Active Thiamine HCl 100 MG Oral Tablet (vitamin B-1) TAKE 1 TABLET BY MOUTH EVERY DAY 90 Tablet 3 09/22/2021 Active Vitamin B-12 100 MCG Oral Tablet (vitamin B-12) TAKE 100 MCG BY MOUTH DAILY. 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 Diagnosis code J44.9 Stage 3 Sever COPD by Gold classification [facility]. Diagnosis code J96.11 Chronic Resp Failure with hypoxia on home oxygen therapy.. 270 mL 4 09/23/2021 Active Additional Information Patient not taking. Reported on 12/16/2021 Omeprazole 40 MG Oral Capsule Delayed Release (PriLOSEC) TAKE 1 CAPSULE BY MOUTH DAILY. 1 HOUR BEFORE THE FIRST MEAL OF THE DAY 90 Capsule 0 10/17/2021 Active Potassium Chloride ER 20 MEQ Oral Tablet Extended Release Take by mouth 1 Tablet in the morning. 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 810 mL 2 11/19/2021 Active Dificid 200 MG Oral Tablet Take by mouth 200 mg . 0 12/12/2021 Active Combivent Respimat 20-100 MCG/ACT Inhalation Aerosol Solution Inhale by mouth 20-100 Puffs 4 times a day . 0 11/28/2021 Active Famotidine 20 MG Oral Tablet (Pepcid) Take by mouth 1 Tablet as needed before bedtime for Heartburn. 30 Tablet 11 12/17/2021 Active documented as of this encounter (statuses as of 12/18/2021) Active Problems Problem Noted Date Recurrent colitis [...] as of this encounter (statuses as of 12/18/2021) Resolved Problems Problem Noted Date Resolved Date [...] as of this encounter (statuses as of 12/18/2021) Immunizations Name Administration Dates Next Due PPD [...] Miscellaneous Notes * Telephone Encounter - JAH Potter - 12/18/2021 8:19 AM EDT Per Nisreen's 12/17 checkout note: Follow-up Disp: Return in about 4 weeks (around 01/14/2022). LMCell for patient to call and schedule. documented in this encounter Plan of Treatment Upcoming Encounters Date Type Specialty Care Team Description 01/28/2022 Office Visit Family Medicine Kavya Dillard CRNP [address] [facility] [place] [address] Health Maintenance Due Date Last Done Comments [...] 10/20/2017 LUNG CANCER SCREENING - USE SMARTSET 58653 Completed 06/23/2017 Pneumococcal Vaccine: 65+ Years Completed 10/20/2017, 04/27/2017 GARDASIL-HPV IMMUNIZATION SERIES Aged Out No longer eligible based on patient's age to complete this topic MENINGOCOCCAL (MENACTRA/MENVEO) Aged Out No longer eligible based on patient's age to complete this topic documented as of this encounter Implants Not on filedocumented as of this encounter Advance Directives Documents on File Type Date Recorded Patient Director Communications Expl anation Advanced Directive service a emelia [...] Directive Advanced Directive Advanced Directive Care Teams Personnel Officer Relationship Specialty Start Date End Date Kavya Dillard CRNP [address] [facility] [place] [address] PCP - General Nurse Practitioner 12/31/20 documented as of this encounter
--- OUTSIDE RECORDS SUMMARY | 2023-04-08 23:06 | External Medical Summary | Summary of Care ---
Author Name Unknown Organization [place] [address] Care Team Providers Care Clinical Faculty Name Role Phone Kavya Dillard Primary Care Provider Reason for Visit * Reason Onset Date Comments case management 12/17/2021 Encounter Details Date Type Department Care Team Description 12/17/2021 [employer] Tunnel KilnSystem Operator Practice [facility] [address] [facility] [place] [address] Nadia Trujillo, RN [address] [place] [address] Medical home patient encounter*; Hospital discharge follow-up; Recurrent colitis due to Clostridioides difficile; Chronic respiratory failure with hypoxia, on home O2 therapy (HCC); Electrolyte imbalance Allergies No known active allergiesdocumented as of this encounter (statuses as of 12/23/2021) Medications Medication Sig Dispensed Refills Start Date [...] LPM continuous oxygen with exertion DME: [facility] Indications: Inc to 4LPM with ambulation/exertion 1 Each 0 04/01/2021 Active Folic Acid 1 MG Oral TabletIndications:C hronic respiratory failure with hypoxia, on home O2 therapy ([facility]) TAKE 1 TABLET BY MOUTH EVERY DAY [...] Respimat 1.25 MCG/ACT Inhalation Aerosol Solution (Tiotropium [place] Monohydrate) INHALE 2 PUFFS BY MOUTH EVERY [...] DAILY. 90 Tablet 3 09/22/2021 Active Ipratropium [place] 0.02 % Inhalation Solution (Atrovent)Indicatio ns:Stage 3 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 ([facility]) Inhale via nebulizer 2.5 mL in the morning AND 2.5 mL at noon AND 2.5 mL before bedtime. Diagnosis code J44.9 Stage 3 Sever COPD by Gold classification [facility]. Diagnosis code J96.11 Chronic Resp Failure with hypoxia on home oxygen therapy.. 270 mL 4 09/23/2021 Active Additional Information Patient not taking. Reported on 12/16/2021 Potassium Chloride ER 20 MEQ Oral Tablet Extended Release Take by mouth 1 Tablet in the morning. 30 Tablet 3 10/22/2021 Active Levalbuterol HCl 1.25 MG/3ML Inhalation Nebulization Solution (Xopenex)Indication s:Stage 3 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 ([facility]) INHALE 1 AMPULE VIA NEBULIZER 3 TIMES A DAY. 810 mL 2 11/19/2021 Active Additional Information Patient not taking. Reported on 12/23/2021 Dificid 200 MG Oral Tablet Take by mouth 200 mg . 0 12/12/2021 Active Combivent Respimat 20-100 MCG/ACT Inhalation Aerosol Solution Inhale by mouth 20-100 Puffs 4 times a day . 0 11/28/2021 Active Omeprazole 40 MG Oral Capsule Delayed Release (PriLOSEC) TAKE 1 CAPSULE BY MOUTH DAILY. 1 HOUR BEFORE THE FIRST MEAL OF THE DAY 90 Capsule 1 12/23/2021 Active Saccharomyces boulardii 250 MG Oral Capsule (Florastor) Take by mouth 250 mg in the morning. Florastor . 0 Active Calcium Carbonate Antacid 750 MG Oral Tablet Chewable (Tums E-X) Take by mouth 750 mg as needed for Heartburn. 0 Active documented as of this encounter (statuses as of 12/23/2021) Active Problems Problem Noted Date Recurrent colitis [...] as of this encounter (statuses as of 12/23/2021) Resolved Problems Problem Noted Date Resolved Date [...] as of this encounter (statuses as of 12/23/2021) Immunizations Name Administration Dates Next Due PPD [...] as of this encounter Progress Notes * Nadia Trujillo RN - 12/17/2021 10:41 AM EDT Case Management Assessment - SULEMA comprehensive Risk Adm/ER: 12% Low Risk Is this call for a hospital, halfway or rehab facility discharge to home? Yes - patient was inpatient at [facility] from 12/05/21 - 12/12/21. 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 S: Reports: Weight gain: Weight down 28 lbs since a year ago September. -most recent weight is down to 103 lbs. Increased edema: none reported Chest pain - none reported Increased shortness of breath: denies increase, about the same oxygen concentrator, portable, 2.5L-rest and 4L-activity/exercise -former smoker, quit 2015 Fall: none reported Appetite: spouse reports he eats very little -feels full all the time, or eats a few bites and feels full -to increase calorie intake, drinking protein shakes twice a day -does not tolerate dairy well. -to avoid caffeine -occasional mild nausea Bowel: recurrent C-diff -spouse reports patient is to have a fecal transplant in the near future, waiting for call with date/time Bladder: denies problems Medications: not taking all medications as ordered on discharge, see notes Chronic Pain: "some, not much" O: Phone visit for post hospital discharge follow up. Spoke with spouse, Violeta. Alert, oriented, pleasant. Lives, with spouse, in a mobile home. Reports patient has "weak", "tired". Spouse reports he was referred to home health, but has not gotten that call yet. Reports he is to be getting physical and occupation therapies. Medications: med rec was a challenge, patient is taking multiple medications different from hospital discharge instructions. -spouse reports to nebulizer as "black machine" -spouse reports patient taking an "orange powder" called [facility], for diarrhea. -adding Florastor and Tums to med list Does this patient qualify for an annual wellness visit? Yes, has never had an AWV appointment, nonescheduled in the future. -not addressed further this visit. A: Patient Centered Prioritized Goals: Patient will have bowel issues addressed. Exacerbations have been prevented, minimized or reduced in severity. Co-morbid conditions identified and managed. Patient will have nutritional needs met. Identified Barriers: Lack of motivation and Older than 70 years FUNCTIONAL STATUS: (Definition - assess ability to patient to manage their own care, includes evaluation of activities of daily living, and instrumental activities of daily living, and cognitive abilities status) ADL'S - Needs Assistance With: Bathing and Dressing IADL'S - Needs Assistance With: Grocery Shopping, Cooking food, Routine Housework, Using telephone, Taking medications and Managing money Cognitive and Mental Health: alert and oriented x 2 and able to communicate, understand some instructions, process some information P: Firer Tunnel 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 Instructed on "call back instructions" if symptoms increase, such as: continued weight loss, poor intake, new or uncontrolled pain, falls, nausea or vomiting, more than 5 diarrheal stools per day, orany other changes in condition. Updated managing provider, via Epic note Reinforced diet restrictions - related to caffeine, dairy, etc. Reinforced safety education / fall prevention Reinforced medication regimen - timing / dosing / purpose Med rec completed with spouse. Med list updated. Confirmed pharmacy of choice as [facility] in [place]. Contacted managing provider regarding discrepancies in med rec. Asking for clarification, as patient was just seen yesterday. Informed spouse that the "orange powder" (cholestyramine) was discontinued. Confirmed pneumonia vaccine is up to date. Patient likes to drink soda, discussed which ones have caffeine, which ones not. Enrolled in post discharge IVR calls weekly x 4, on wednesdays at 11 AM, starting 12/24/21. Confirmed upcoming appointment with Gastroenterology. Plans to keep as scheduled. -spouse also reports patient is being scheduled for a fecal transplant in near future, she is awaiting call for date/time of procedure. Reinforced role of counter caser. Encouraged to call with any issues or concerns. Spouse has CM direct phone number and contact information. PCP Notified of enrollment in CM/HM program: No SNP Member? No Re-evaluation of plan of care and progress towards goals achievement: spouse open to teaching, plans to keep appointments as scheduled, minimal pain/functional, no reported falls, receptive to participation with case management. Plan to call patient next week, via IVR, to reassess and update plan of care, instructed to call Firer Tunnel Kiln or Primary Care Provider with change in symptoms or as needed before next follow-up Nadia Trujillo RN Outpatient [employer] documented in this encounter Plan of Treatment Upcoming Encounters Date Type Specialty Care Team Description 01/28/2022 Office Visit Family Medicine Kavya Dillard CRNP [address] [place] [address] 02/10/2022 Office Visit Gastroenterology Nisreen Jennings CRNP [address] [place] [address] Health Maintenance Due Date Last Done Comments [...] 10/20/2017 LUNG CANCER SCREENING - USE SMARTSET 46834 Completed 06/23/2017 Pneumococcal Vaccine: 65+ Years Completed [...] home patient encounter- Primary Other specified examination Hospital discharge follow-up Other follow-up examination Recurrent colitis due to Clostridioides difficile Chronic respiratory failure with hypoxia, on home O2 therapy (HCC) Electrolyte imbalance Electrolyte and fluid disorders not elsewhere classified documented in this encounter Advance Directives Documents on File Type Date Recorded 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
--- OUTSIDE RECORDS SUMMARY | 2023-04-08 23:06 | External Medical Summary | Summary of Care ---
Author Name Unknown Organization [place] [address] Care Team Providers Care Director Compliance Name Role Phone Kavya Jacinto Primary Care Provider Reason for Visit * Reason Comments eRx-Medication Refill Encounter Details Date Type Department Care Team Description 12/22/2021 Refill Family Practice [facility] [address] [facility] [place] [address] Kavya Jacinto CRNP [address] [place] [address] Chronic respiratory failure with hypoxia, on home O2 therapy (HCC) Allergies No known active allergiesdocumented as of this encounter (statuses as of 12/24/2021) Medications Medication Sig Dispensed Refills Start Date [...] Brand necessary 54 g 3 08/07/19 21 Active Additional Information Patient not taking. Reported on 12/16/2021 oxygen IN GASIndications:Inc to 4LPM with ambulation/exertio n 2.5 lpm at rest 3 LPM continuous oxygen with exertion DME: [facility] Indications: Inc to 4LPM with ambulation/exertio n 1 Each 0 04/01/20 Active Roflumilast 500 MCG Oral Tablet (Daliresp) Take by mouth 1 Tablet in the morning. 180 Tablet 4 08/26/19 22 Active Additional Information Patient not taking. Reported on 12/16/2021 Fluticasone-Salmet umberto 250-50 MCG/DOSE Inhalation Aerosol Powder Breath Activated (Advair Diskus)Indications :SOB (shortness of breath) Inhale by mouth 1 Puff in the morning AND 1 Puff before bedtime. Brand necessary. 3 Each 3 09/11/19 Active Spiriva Respimat 1.25 MCG/ACT Inhalation Aerosol Solution (Tiotropium [place] Monohydrate) INHALE 2 PUFFS BY MOUTH EVERY [...] BY MOUTH DAILY. 90 Tablet 3 09/23/19 Active Ipratropium [place] 0.02 % Inhalation Solution (Atrovent)Indicati ons:Stage 3 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 ([facility]) Inhale via nebulizer 2.5 mL in the morning AND 2.5 mL at noon AND 2.5 mL before bedtime. Diagnosis code J44.9 Stage 3 Sever COPD by Gold classification [facility]. Diagnosis code J96.11 Chronic Resp Failure with hypoxia on home oxygen therapy.. 270 mL 4 09/24/19 22 Active Additional Information Patient not taking. Reported on 12/16/2021 Potassium Chloride ER 20 MEQ Oral Tablet Extended Release Take by mouth 1 Tablet in the morning. 30 Tablet 3 10/23/19 22 Active Levalbuterol HCl 1.25 MG/3ML Inhalation Nebulization Solution (Xopenex)Indicatio ns:Stage 3 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 ([facility]) INHALE 1 AMPULE VIA NEBULIZER 3 TIMES A DAY. 810 mL 2 11/20/19 Active Additional Information Patient not taking. Reported on 12/23/2021 Dificid 200 MG Oral Tablet Take by mouth 200 mg . 0 12/13/19 Active Combivent Respimat 20-100 MCG/ACT Inhalation Aerosol Solution Inhale by mouth 20-100 Puffs 4 times a day . 0 11/29/19 Active Famotidine 20 MG Oral Tablet (Pepcid) Take by mouth 1 Tablet as needed before bedtime for Heartburn. 30 Tablet 11 12/18/19 Active Additional Information Patient not taking. Reported on 12/23/2021 Omeprazole 40 MG Oral Capsule Delayed Release (PriLOSEC) TAKE 1 CAPSULE BY MOUTH DAILY. 1 HOUR BEFORE THE FIRST MEAL OF THE DAY 90 Capsule 1 12/24/19 Active Folic Acid 1 MG Oral TabletIndications: Chronic respiratory failure with hypoxia, on home O2 therapy ([facility]) TAKE 1 TABLET BY MOUTH EVERY DAY 90 Tablet 3 12/25/19 Active Saccharomyces boulardii 250 MG Oral Capsule (Florastor) Take by mouth 250 mg in the morning. Florastor . 0 Active Calcium Carbonate Antacid 750 MG Oral Tablet Chewable (Tums E-X) Take by mouth 750 mg as needed for Heartburn. 0 Active Folic Acid 1 MG Oral TabletIndications: Chronic respiratory failure with hypoxia, on home O2 therapy ([facility]) TAKE 1 TABLET BY MOUTH EVERY DAY 90 Tablet 2 05/08/20 21 022 Discontinued documented as of this encounter (statuses as of 12/24/2021) Active Problems Problem Noted Date Recurrent colitis [...] as of this encounter (statuses as of 12/24/2021) Resolved Problems Problem Noted Date Resolved Date [...] as of this encounter (statuses as of 12/24/2021) Immunizations Name Administration Dates Next Due PPD [...] encounter Miscellaneous Notes * Telephone Encounter - Karen Faith RPh - 12/24/2021 10:37 AM EDT Signed Prescriptions: Disp Refills Folic Acid 1 MG Oral Tablet 90 Tab*3 Sig: TAKE 1 TABLET BY MOUTHEVERY DAYAuthorizing Provider: KAVYA JACINTOOrdererrol User: AKREN FAITH documented in this encounter Plan of Treatment Upcoming Encounters Date Type Specialty Care Team Description 01/28/2022 Office Visit Family Medicine Kavya Jacinto CRNP [address] [place] [address] 02/10/2022 Office Visit Gastroenterology Nisreen Jennings CRNP [address] [place] [address] Health Maintenance Due Date Last Done Comments [...] 10/20/2017 LUNG CANCER SCREENING - USE SMARTSET [id number] Completed 06/23/2017 Pneumococcal Vaccine: 65+ Years Completed [...] O2 therapy (HCC) documented in this encounter Advance Directives Documents on File Type Date Recorded 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
--- OUTSIDE RECORDS SUMMARY | 2023-04-08 23:06 | External Medical Summary | Summary of Care ---
Author Name Unknown Organization [place] [address] Care Team Providers Care Sustainable Design Coordinator Name Role Phone Kavya Dillard Primary Care Provider Reason for Visit * Reason Onset Date Comments Appointment 12/18/2021 Encounter Details Date Type Department Care Team Description 12/18/2021 Telephone Gastroenterology, [facility] [address] [facility] [place] [address] Nisreen Jennings CRNP [address] [place] [address] Appointment Allergies No known active allergiesdocumented as [...] LPM continuous oxygen with exertion DME: [facility] Indications: Inc to 4LPM with ambulation/exertion [...] Respimat 1.25 MCG/ACT Inhalation Aerosol Solution (Tiotropium [place] Monohydrate) INHALE 2 PUFFS BY MOUTH EVERY DAY 12 g 1 09/20/2021 Active Thiamine HCl 100 MG Oral Tablet (vitamin B-1) TAKE 1 TABLET BY MOUTH EVERY DAY 90 Tablet 3 09/22/2021 Active Vitamin B-12 100 MCG Oral Tablet (vitamin B-12) TAKE 100 MCG BY MOUTH DAILY. 90 Tablet 3 09/22/2021 Active Ipratropium [place] 0.02 % Inhalation Solution (Atrovent)Indicatio ns:Stage 3 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 ([facility]) Inhale via nebulizer 2.5 mL in the morning AND 2.5 mL at noon AND 2.5 mL before bedtime. Diagnosis code J44.9 Stage 3 Sever COPD by Gold classification [facility]. Diagnosis code J96.11 Chronic Resp Failure [...] 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 ([facility]) INHALE 1 AMPULE VIA NEBULIZER 3 [...] Miscellaneous Notes * Telephone Encounter - JAH Pollard - 12/18/2021 2:21 PM EDT Patient returned call, f/u scheduled on 02/10. * Telephone Encounter - JAH Potter - 12/18/2021 8:19 AM EDT Per Nisreen's 12/17 checkout note: Follow-up Disp: Return in about 4 weeks (around 01/14/2022). LMCell for patient to call and schedule. documented in this encounter Plan of Treatment Upcoming Encounters Date Type Specialty Care Team Description 01/28/2022 Office Visit Family Medicine Kavya Dillard CRNP [address] [place] [address] 02/10/2022 Office Visit Gastroenterology Nisreen Jennings CRNP [address] [place] [address] Health Maintenance Due Date Last Done Comments [...] 10/20/2017 LUNG CANCER SCREENING - USE SMARTSET 35519 Completed 06/23/2017 Pneumococcal Vaccine: 65+ Years Completed 10/20/2017, 04/27/2017 GARDASIL-HPV IMMUNIZATION SERIES Aged Out No longer eligible based on patient's age to complete this topic MENINGOCOCCAL (MENACTRA/MENVEO) Aged Out No longer eligible based on patient's age to complete this topic documented as of this encounter Implants Not on filedocumented as of this encounter Advance Directives Documents on File Type Date Recorded 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
--- OUTSIDE RECORDS SUMMARY | 2023-04-08 23:06 | External Medical Summary | Summary of Care ---
Author Name Unknown Organization [place] [address] Care Team Providers Care Senior Solutions Architect Name Role Phone Kavya Jacinto Primary Care Provider Reason for Visit * Reason Comments eRx-Medication Refill Encounter Details Date Type Department Care Team Description 12/20/2021 Refill Family Practice [facility] [address] [place] [address] Kavya Jacinto CRNP [address] [place] [address] Allergies No known active allergiesdocumented [...] 3 LPM continuous oxygen with exertion DME: [facility] Indications: Inc to 4LPM with ambulation/exertio n 1 Each 0 04/01/20 21 Active Folic Acid 1 MG Oral TabletIndications: Chronic respiratory failure with hypoxia, on home O2 therapy (HCC) TAKE 1 TABLET BY MOUTH EVERY DAY 90 Tablet 2 05/08/20 21 Active Roflumilast 500 MCG Oral Tablet [...] Respimat 1.25 MCG/ACT Inhalation Aerosol Solution (Tiotropium [place] Monohydrate) INHALE 2 PUFFS BY MOUTH EVERY DAY 12 g 1 09/21/19 22 Active Thiamine HCl 100 MG Oral Tablet (vitamin B-1) TAKE 1 TABLET BY MOUTH EVERY DAY 90 Tablet 3 09/23/19 22 Active Vitamin B-12 100 MCG Oral Tablet (vitamin B-12) TAKE 100 MCG BY MOUTH DAILY. 90 Tablet 3 09/23/19 22 Active Ipratropium [place] 0.02 % Inhalation Solution (Atrovent)Indicati ons:Stage 3 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 (FORMERLY [...] A DAY. 810 mL 2 11/20/19 Active Dificid 200 MG Oral Tablet Take by mouth 200 mg . 0 12/13/19 Active Combivent Respimat 20-100 MCG/ACT Inhalation Aerosol Solution Inhale by mouth 20-100 Puffs 4 times a day . 0 11/29/19 Active Famotidine 20 MG Oral Tablet (Pepcid) Take by mouth 1 Tablet as needed before bedtime for Heartburn. 30 Tablet 11 12/18/19 Active Omeprazole 40 MG Oral Capsule Delayed Release (PriLOSEC) TAKE 1 CAPSULE BY MOUTH DAILY. 1 HOUR BEFORE THE FIRST MEAL OF THE DAY 90 Capsule 1 12/24/19 22 Active Omeprazole 40 MG Oral Capsule Delayed Release (PriLOSEC) TAKE 1 CAPSULE BY MOUTH DAILY. 1 HOUR BEFORE THE FIRST MEAL OF THE DAY 90 Capsule 0 10/18/19 22 022 Discontinued documented as of this encounter [...] * Telephone Encounter - GARRETT Root - 12/23/2021 6:48 AM EDT Signed Prescriptions: Disp Refills Omeprazole 40 MG Oral Capsule Delayed Rele*90 Cap*1 Sig: TAKE 1 CAPSULE BY MOUTH DAILY. 1 HOUR BEFORE THE FIRST MEAL OF THE DAY Authorizing Provider: KAVYA JACINTO * Telephone Encounter - Deja Lockwood [facility] - 12/22/2021 3:18 PM EDT Pending Prescriptions: Disp Refills Omeprazole 40 MG Oral Capsule Delayed Rel*90 Cap*1 Sig: TAKE 1 CAPSULE BY MOUTH DAILY. 1 HOUR BEFORE THE FIRST MEAL OF THE DAY * Telephone Encounter - Deja Lockwood [facility] - 12/22/2021 3:18 PM EDT Per previous notes, patient was only to take for one month. Please advise/approve if appropriate. Did you pend patient's preferred pharmacy and medication before forwarding?yes Pharmacy: [id number] [address] [facility] Pending Prescriptions: Disp Refills Omeprazole 40 MG Oral Capsule Delayed Rel*90 Cap*1 Sig: TAKE 1 CAPSULE BY MOUTH DAILY. 1 HOUR BEFORE THE FIRST MEAL OF THE DAY Last Visit: 12/16/2021 (in office), Visit date not found (telemedicine) Next Visit: 01/28/2022 If no future appointments scheduled, and last appointment is greater than a year ago, please schedule patient for a follow-up appointment Last date the medication was ordered: 10/17/21 Is this request for a controlled substance?No [...] Medicine Kavya Jacinto CRNP [address] [place] [address] 02/10/2022 Office Visit Gastroenterology Nisreen Jennings CRNP [address] [place] [address] Health Maintenance Due Date Last Done Comments [...] 10/20/2017 LUNG CANCER SCREENING - USE SMARTSET 54721 Completed 06/23/2017 Pneumococcal Vaccine: 65+ Years Completed 10/20/2017, 04/27/2017 GARDASIL-HPV IMMUNIZATION SERIES Aged Out No longer eligible based on patient's age to complete this topic MENINGOCOCCAL (MENACTRA/MENVEO) Aged Out No longer eligible based on patient's age to complete this topic documented as of this encounter Implants Not on filedocumented as of this encounter Advance Directives Documents on File Type Date Recorded 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
--- OUTSIDE RECORDS SUMMARY | 2023-04-08 23:06 | External Medical Summary | Summary of Care ---
Author Name Unknown Organization [place] [address] Care Team Providers Care Annealing Furnace Operator Name Role Phone Kavya Dillard Primary Care Provider Encounter Details Date Type Department Care Team Description 12/24/2021 Telephone Gastroenterology, [facility] [address] [place] [address] Nisreen Jennings CRNP 132 [facility] [place] [address] Allergies No known active allergiesdocumented as of this encounter (statuses as of 12/26/2021) Medications Medication Sig Dispensed Refills Start Date [...] for Wheezing. Brand necessary 54 g 3 1 Active Additional Information Patient not taking. Reported on 12/16/2021 oxygen IN GASIndications:Inc to 4LPM with ambulation/exertion 2.5 lpm at rest 3 LPM continuous oxygen with exertion DME: [facility] Indications: Inc to 4LPM with ambulation/exertio n 1 Each 0 1 Active Roflumilast 500 MCG Oral Tablet (Daliresp) Take by mouth 1 Tablet in the morning. 180 Tablet 4 2 Active Additional Information Patient not taking. Reported on 12/16/2021 Fluticasone-Salmete rol 250-50 MCG/DOSE Inhalation Aerosol Powder Breath Activated (Advair Diskus)Indications: SOB (shortness of breath) Inhale by mouth 1 Puff in the morning AND 1 Puff before bedtime. Brand necessary. 3 Each 3 2 Active Spiriva Respimat 1.25 MCG/ACT Inhalation Aerosol Solution (Tiotropium [place] Monohydrate) INHALE 2 PUFFS BY MOUTH EVERY [...] MOUTH DAILY. 90 Tablet 3 2 Active Potassium Chloride ER 20 MEQ Oral Tablet Extended Release Take by mouth 1 Tablet in the morning. 30 Tablet 3 2 Active Dificid 200 MG Oral Tablet Take by mouth 200 mg . 0 2 Active Famotidine 20 MG Oral Tablet (Pepcid) Take by mouth 1 Tablet as needed before bedtime for Heartburn. 30 Tablet 11 2 Active Additional Information Patient not taking. Reported [...] in the morning. Florastor . 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 Diagnosis code J44.9 Stage 3 Sever COPD by Gold classification [facility]. Diagnosis code J96.11 Chronic Resp Failure with hypoxia on home oxygen therapy.. 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 810 mL 2 2 12/27/19 Discontinu ed(Medicat ion List Clean Up) Combivent Respimat 20-100 MCG/ACT Inhalation Aerosol Solution Inhale by mouth 20-100 Puffs 4 times a day . 0 2 12/27/19 Discontinu ed(Medicat ion List Clean Up) Calcium Carbonate Antacid 750 MG Oral Tablet Chewable (Tums E-X) Take by mouth 750 mg as needed for Heartburn. 0 12/27/19 Discontinu ed(Medicat ion List Clean Up) documented as of this encounter (statuses as of 12/26/2021) Active Problems Problem Noted Date Recurrent colitis [...] as of this encounter (statuses as of 12/26/2021) Resolved Problems Problem Noted Date Resolved Date [...] as of this encounter (statuses as of 12/26/2021) Immunizations Name Administration Dates Next Due PPD [...] as of this encounter Miscellaneous Notes * Addendum Note - Binta Mccain LPN - 12/26/2021 1:35 PM EDT Addended by: BINTA MCCAIN on: 12/26/2021 01:35 PM Modules accepted: Orders * Telephone Encounter - Binta Mccain LPN - 12/26/2021 1:26 PM EDT Call received from pt . Is taking dificid - last pill will be Wednesday. Says there is another bottle at the pharmacy to pick. Should they get that. Taking famotidine, advair, folic acid, multi, prilosec, klorcon, daliresp, florastor, spiriva, B1 and B12, Questran as needed. Is stil having the diarrhea, Is going every 2-3hours. Light brown in color, no foul odor but smell is off. Is cow rylan consistency. No nausea or vomiting. No fever. Some pain in stomach occasionally. Not as bad as before. * Telephone Encounter - Madan Enrique RN - 12/24/2021 2:46 PM EDT Called, LMOM with return #. * Telephone Encounter - GARRETT Smith - 12/24/2021 2:39 PM EDT Nursing, please see CM phone call today. I tried to call pt to assess but no answer. Please call pt, find out exactly what medications and how often he is taking these medications Also assess his symptoms, # BM, color of stool, nausea/vomiting, fevers or pain GARRETT Colon 12/24/2021 2:40 PM documented in this encounter Plan of Treatment Upcoming Encounters Date Type Specialty Care Team Description 01/28/2022 Office Visit Family Medicine Kavya Dillard CRNP [address] [place] [address] 02/10/2022 Office Visit Gastroenterology Nisreen Jennings CRNP [address] [address] Health Maintenance Due Date Last Done Comments [...] 10/20/2017 LUNG CANCER SCREENING - USE SMARTSET 21338 Completed 06/23/2017 Pneumococcal Vaccine: 65+ Years Completed [...] Documents on File Type Date Recorded 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
--- OUTSIDE RECORDS SUMMARY | 2023-04-08 23:06 | External Medical Summary | Summary of Care ---
Author Name Unknown Organization [place] [address] Care Team Providers Care Sales Agent Pest Control Service Name Role Phone Kavya iDllard Primary Care Provider Reason for Visit * Reason Onset Date Comments Encounter Created in Error 12/22/2021 Encounter Details Date Type Department Care Team Description 12/22/2021 Telephone Family Practice [facility] [address] [place] [address] Kavya Dillard CRNP [address] [place] [address] Encounter Created in Error Allergies No known active allergiesdocumented as of this encounter (statuses as of 12/22/2021) Medications Medication Sig Dispensed Refills Start Date [...] LPM continuous oxygen with exertion DME: [facility] Indications: Inc to 4LPM with ambulation/exertion [...] Respimat 1.25 MCG/ACT Inhalation Aerosol Solution (Tiotropium [place] Monohydrate) INHALE 2 PUFFS BY MOUTH EVERY DAY 12 g 1 09/20/2021 Active Thiamine HCl 100 MG Oral Tablet (vitamin B-1) TAKE 1 TABLET BY MOUTH EVERY DAY 90 Tablet 3 09/22/2021 Active Vitamin B-12 100 MCG Oral Tablet (vitamin B-12) TAKE 100 MCG BY MOUTH DAILY. 90 Tablet 3 09/22/2021 Active Ipratropium [place] 0.02 % Inhalation Solution (Atrovent)Indicatio ns:Stage 3 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 ([facility]) Inhale via nebulizer 2.5 mL in the morning AND 2.5 mL at noon AND 2.5 mL before bedtime. Diagnosis code J44.9 Stage 3 Sever COPD by Gold classification [facility]. Diagnosis code J96.11 Chronic Resp Failure [...] 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 ([facility]) INHALE 1 AMPULE VIA NEBULIZER [...] as of this encounter (statuses as of 12/22/2021) Active Problems Problem Noted Date Recurrent colitis [...] as of this encounter (statuses as of 12/22/2021) Resolved Problems Problem Noted Date Resolved Date [...] as of this encounter (statuses as of 12/22/2021) Immunizations Name Administration Dates Next Due PPD [...] Medicine Kavya Dillard CRNP [address] [address] 02/10/2022 Office Visit Gastroenterology Nisreen Jennings CRNP [address] [address] Health Maintenance Due Date Last Done Comments [...] 10/20/2017 LUNG CANCER SCREENING - USE SMARTSET 26530 Completed 06/23/2017 Pneumococcal Vaccine: 65+ Years Completed 10/20/2017, 04/27/2017 GARDASIL-HPV IMMUNIZATION SERIES Aged Out No longer eligible based on patient's age to complete this topic MENINGOCOCCAL (MENACTRA/MENVEO) Aged Out No longer eligible based on patient's age to complete this topic documented as of this encounter Implants Not on filedocumented as of this encounter Advance Directives Documents on File Type Date Recorded Patient Bankruptcy Legal Assistant Expl anation Advanced Directive service a emelia [...] Directive Advanced Directive Advanced Directive Care Teams Sales Agent Pest Control Service Relationship Specialty Start Date End Date Kavya Dillard CRNP [address] [place] [address] PCP - General Nurse Practitioner 12/31/20 documented as of this encounter
--- OUTSIDE RECORDS SUMMARY | 2023-04-08 23:06 | External Medical Summary | Summary of Care ---
Author Name Unknown Organization [place] [address] Care Team Providers Care Service Girl Name Role Phone Kavya Dillard Primary Care Provider Reason for Referral * Evaluate & Treat - Unlimited Visits (Within 3 days (urgent)) - Authorized Specialty Diagnoses / Procedures Referred By Nicole cisse Referred To Contact Gastroenterology Diagnoses Recurrent colitis due to Clostridioides difficile Kavya Dillard CRNP [address] [place] [address] Referral ID Status Reason Start Date Expiration Date Visits Requested Visits Authorized [id number] Authorized Specialty Services Required 12/26/2021 999 999 Question Answer Referral Priority Within 3 days (urgent) For what condition is the patient being referred? 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 Reason for Visit * Reason Onset Date Comments Advice 12/25/2021 Encounter Details Date Type Department Care Team Description 12/25/2021 Telephone Family Practice [facility] [address] [place] [address] Kavya Dillard CRNP [address] [place] [address] Advice Allergies No known active allergiesdocumented as [...] 3 LPM continuous oxygen with exertion DME: [facility] Indications: Inc to 4LPM with ambulation/exertio [...] Respimat 1.25 MCG/ACT Inhalation Aerosol Solution (Tiotropium [place] Monohydrate) INHALE 2 PUFFS BY MOUTH EVERY [...] encounter Miscellaneous Notes * Telephone Encounter - Lory Ramirez RN [...] is promise and can be reached at [phone]. * Telephone Encounter - JAH Pollard - 12/29/2021 4:42 PM EDT Please reach out to patient to schedule with Gastro for fecal transplant per Kavya Dillard. Thank you * Telephone Encounter - GARRETT Smith - 12/29/2021 1:52 PM EDT Is [facility] doing fecal transplants again? I had previously [...] assist with referral for fecal transplant in [place] please? Randy, MSN, GARRETT [facility] * Telephone Encounter - Shannan Posey LPN - 12/26/2021 1:50 PM EDT Please advise if pt should be taking additional medication Per hospital note pt was to be on through today * Telephone Encounter - JAH Salazar - 12/26/2021 1:12 PM EDT Pt return call. Please call back [phone]. [facility] and [facility] got another prescription [...] 12/25/2021 2:36 PM EDT Faxed demographics to energy PT for information * Telephone Encounter - JAH Queen - 12/25/2021 12:07 PM EDT Samantha calling from [facility] requesting patients medicare numbers and also need to know if patienthas a secondary insurance please assist with this documented in this encounter Plan of Treatment Upcoming Encounters Date Type Specialty Care Team Description 01/28/2022 Office Visit Family Medicine Kavya Dillard CRNP [address] [address] 02/10/2022 Office Visit Gastroenterology Nisreen Jennings CRNP [address] [place] [address] Scheduled Referrals Name Type Priority Associated Diagnoses [...] 10/20/2017 LUNG CANCER SCREENING - USE SMARTSET 411[address] Completed 06/23/2017 Pneumococcal Vaccine: 65+ Years Completed [...] Documents on File Type Date Recorded 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
--- OUTSIDE RECORDS SUMMARY | 2023-04-08 23:06 | External Medical Summary | Summary of Care ---
Author Name Unknown Organization [place] [address] Care Team Providers Care Systems Technologist Name Role Phone Kavya Dillard Yoanna GARRETT Primary Care Provider Reason for Visit * Reason Onset Date Comments Advice 12/24/2021 Encounter Details Date Type Department Care Team Description 12/24/2021 Applications Architect Telephone Care Coordination [address] [place] [address] Rahel Akhtar, relief man Allergies No known active allergiesdocumented as of [...] 3 LPM continuous oxygen with exertion DME: [facility] Indications: Inc to 4LPM with ambulation/exertion 1 Each 0 04/01/2021 Active Roflumilast 500 [...] Respimat 1.25 MCG/ACT Inhalation Aerosol Solution (Tiotropium [place] Monohydrate) INHALE 2 PUFFS BY MOUTH EVERY [...] DAILY. 90 Tablet 3 09/22/2021 Active Ipratropium [place] 0.02 % Inhalation Solution (Atrovent)Indicatio ns:Stage 3 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 ([facility]) Inhale via nebulizer 2.5 mL in the morning AND 2.5 mL at noon AND 2.5 mL before bedtime. Diagnosis code J44.9 Stage 3 Sever COPD by Gold classification [facility]. Diagnosis code J96.11 Chronic Resp Failure with hypoxia on home oxygen therapy.. 270 mL 4 09/23/2021 Active Additional Information Patient not taking. Reported on 12/16/2021 Potassium Chloride ER 20 MEQ Oral Tablet Extended Release Take by mouth 1 Tablet in the morning. 30 Tablet 3 10/22/2021 Active Levalbuterol HCl 1.25 MG/3ML Inhalation Nebulization Solution (Xopenex)Indication s:Stage 3 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 ([facility]) INHALE 1 AMPULE VIA NEBULIZER 3 TIMES [...] encounter Miscellaneous Notes * Telephone Encounter - Rahel Akhtar RN - 12/24/2021 12:45 PM EDT SITUATION: Trigger alert for diarrhea and swelling. Taking Prevalite, florastor probiotic and deficid as directed BACKGROUND: recurrent c-dif ASSESSMENT: moving bowels every 2 hours for the last week. Improved at GI appt and worsened not long after. No abd pain. Denies black or bloody stools. Brown, juicy rylan like. Food goes right through him. Eating well. Denied increased weakness. SOB with walking any distance- at baseline. No fever,chills or other concerns. RECOMMENDATION: Continue medications as ordered. Hydrate well. Call with worsening S/S. Next GI appt 02/10/22. Would you like to make any additional recommendations or see pt sooner? 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
--- OUTSIDE RECORDS SUMMARY | 2023-04-08 23:06 | External Medical Summary | Summary of Care ---
Author Name Unknown Organization [place] [address] Care Team Providers Care Gis Application Developer Name Role Phone Kavya Dillard Primary Care Provider Reason for Referral * Evaluate & Treat - Unlimited Visits (Within 3 days (urgent)) - Authorized Specialty Diagnoses / Procedures Referred By Nicole cisse Referred To Contact Gastroenterology Diagnoses Recurrent colitis due to Clostridioides difficile Kavya Dillard CRNP [address] [place] [address] Referral ID Status Reason Start Date Expiration Date Visits Requested Visits Authorized [id number] Authorized Specialty Services Required 12/26/2021 999 999 Question Answer Referral Priority Within 3 days (urgent) For what condition is the patient being referred? 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 [address] [address] Kavya Dillard CRNP [address] [place] [address] Advice Allergies No known active allergiesdocumented as of this encounter (statuses as of 12/29/2021) Medications Medication Sig Dispensed Refills Start Date [...] 3 LPM continuous oxygen with exertion DME: [facility] Indications: Inc to 4LPM with ambulation/exertio n [...] Respimat 1.25 MCG/ACT Inhalation Aerosol Solution (Tiotropium [place] Monohydrate) INHALE 2 PUFFS BY MOUTH EVERY [...] as of this encounter (statuses as of 12/29/2021) Active Problems Problem Noted Date Recurrent colitis [...] as of this encounter (statuses as of 12/29/2021) Resolved Problems Problem Noted Date Resolved Date [...] as of this encounter (statuses as of 12/29/2021) Immunizations Name Administration Dates Next Due PPD [...] Smith - 12/29/2021 1:52 PM EDT Is [place] doing fecal transplants again? I had previously [...] assist with referral for fecal transplant in [place] please? Randy, AMBER, PROTEIN SCIENTIST [facility] * Telephone Encounter - Shannan Posey LPN - 12/26/2021 1:50 PM EDT Please advise if pt should be taking additional medication Per hospital note pt was to be on through today * Telephone Encounter - JAH Salazar - 12/26/2021 1:12 PM EDT Pt return call. Please call back [phone]. [facility] got another prescription [...] 12/25/2021 2:36 PM EDT Faxed demographics to [facility] PT for information * Telephone Encounter - JAH Queen - 12/25/2021 12:07 PM EDT Samantha calling from [facility] requesting patients medicare numbers and also need to know if patienthas a secondary insurance please assist with this documented in this encounter Plan of Treatment Upcoming Encounters Date Type Specialty Care Team Description 01/28/2022 Office Visit Family Medicine Kavya Dillard CRNP [address] [place] [address] 02/10/2022 Office Visit Gastroenterology Nisreen Jennings CRNP [address] [place] [address] Scheduled Referrals Name Type Priority Associated Diagnoses [...] 10/20/2017 LUNG CANCER SCREENING - USE SMARTSET 265[address] Completed 06/23/2017 Pneumococcal Vaccine: 65+ Years Completed [...] Documents on File Type Date Recorded 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
--- OUTSIDE RECORDS SUMMARY | 2023-04-08 23:06 | External Medical Summary | Summary of Care ---
Author Name Unknown Organization [place] [address] Care Team Providers Care Casting Inspector Name Role Phone Kavya Dillard Primary Care Provider Reason for Referral * Evaluate & Treat - Unlimited Visits (Within 3 days (urgent)) - Authorized Specialty Diagnoses / Procedures Referred By Nicole cisse Referred To Contact Gastroenterology Diagnoses Recurrent colitis due to Clostridioides difficile Kavya Dillard CRNP [address] [address] Referral ID Status Reason Start Date Expiration Date Visits Requested Visits Authorized [id number] Authorized Specialty Services Required 12/26/[phone] Question Answer Referral Priority Within 3 days (urgent) For what condition is the patient being referred? 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 Reason for Visit * Reason Onset Date Comments Advice 12/25/2021 Encounter Details Date Type Department Care Team Description 12/25/2021 Telephone Family Practice [facility] [address] [address] Kavya Dillard CRNP [address] [address] Advice Allergies No known active allergiesdocumented as [...] LPM continuous oxygen with exertion DME: [facility] Indications: Inc to 4LPM with ambulation/exertio [...] Respimat 1.25 MCG/ACT Inhalation Aerosol Solution (Tiotropium [place] Monohydrate) INHALE 2 PUFFS BY MOUTH EVERY [...] Smith - 12/29/2021 1:52 PM EDT [facility]? I had previously [...] assist with referral for fecal transplant in [place] please? Randy, MSN, GARRETT [facility] * Telephone Encounter - Shannan Posey LPN - 12/26/2021 1:50 PM EDT Please advise if pt should be taking additional medication Per hospital note pt was to be on through today * Telephone Encounter - JAH Salazar - 12/26/2021 1:12 PM EDT Pt return call. Please call back [phone]. [facility] and [facility] got another prescription [...] 12/25/2021 2:36 PM EDT Faxed demographics to [place] [facility] for information * Telephone Encounter - JAH Queen - 12/25/2021 12:07 PM EDT Samantha calling from [facility] requesting patients medicare numbers and also need to know if patienthas a secondary insurance please assist with this documented in this encounter Plan of Treatment Upcoming Encounters Date Type Specialty Care Team Description 01/28/2022 Office Visit Family Medicine Kavya Dillard CRNP [address] [facility] [place] [address] 02/10/2022 Office Visit Gastroenterology Nisreen Jennings, GARRETT [address] [place] [address] Scheduled Referrals Name Type Priority Associated Diagnoses [...] 10/20/2017 LUNG CANCER SCREENING - USE SMARTSET [id number] Completed 06/23/2017 Pneumococcal Vaccine: 65+ Years Completed [...] Documents on File Type Date Recorded 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
--- OUTSIDE RECORDS SUMMARY | 2023-04-08 23:06 | External Medical Summary | Summary of Care ---
Author Name Unknown Organization [place] [address] Care Team Providers Care Diesel Fleet Mechanic Name Role Phone Kavya Dillard Primary Care Provider Encounter Details Date Type Department Care Team Description 12/24/2021 Telephone Gastroenterology, [facility] [address] [place] [address] Nisreen Jennings CRNP [address] [facility] [place] [address] Allergies No known active allergiesdocumented as of [...] 3 LPM continuous oxygen [facility]ion [facility]: Inc to 4LPM with [...] Respimat 1.25 MCG/ACT Inhalation Aerosol Solution (Tiotropium [place] Monohydrate) INHALE 2 PUFFS BY MOUTH EVERY [...] DAILY. 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 Diagnosis code J44.9 Stage 3 Sever COPD by Gold classification [facility]. Diagnosis code J96.11 Chronic Resp Failure with hypoxia on home oxygen therapy.. 270 mL 4 09/23/2021 Active Additional Information Patient not taking. Reported on 12/16/2021 Potassium Chloride ER 20 MEQ Oral Tablet Extended Release Take by mouth 1 Tablet in the morning. 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
--- OUTSIDE RECORDS SUMMARY | 2023-04-08 23:06 | External Medical Summary | Summary of Care ---
Author Name Unknown Organization [place] [address] Care Team Providers Care Linux Server Administrator Name Role Phone Kavya Dillard Primary Care Provider Encounter Details Date Type Department Care Team Description 12/24/2021 Telephone Gastroenterology, [facility] [address] [place] [address] Nisreen Jennings CRNP [address] [facility] [place] [address] Allergies No known active allergiesdocumented as of [...] 3 LPM continuous oxygen with exertion DME: [facility] Indications: Inc to 4LPM with ambulation/exertion 1 [...] Respimat 1.25 MCG/ACT Inhalation Aerosol Solution (Tiotropium [place] Monohydrate) INHALE 2 PUFFS BY MOUTH EVERY [...] DAILY. 90 Tablet 3 09/22/2021 Active Ipratropium [place] 0.02 % Inhalation Solution (Atrovent)Indicatio ns:Stage 3 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 ([facility]) Inhale via nebulizer 2.5 mL in the morning AND 2.5 mL at noon AND 2.5 mL before bedtime. Diagnosis code J44.9 Stage 3 Sever COPD by Gold classification [facility]. Diagnosis code J96.11 Chronic Resp Failure with hypoxia on home oxygen therapy.. 270 mL 4 09/23/2021 Active Additional Information Patient not taking. Reported on 12/16/2021 Potassium Chloride ER 20 MEQ Oral Tablet Extended Release Take by mouth 1 Tablet in the morning. 30 Tablet 3 10/22/2021 Active Levalbuterol HCl 1.25 MG/3ML Inhalation Nebulization Solution (Xopenex)Indication s:Stage 3 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 ([facility]) INHALE 1 AMPULE VIA NEBULIZER [...] Medicine Kavya Dillard CRNP [address] [address] 02/10/2022 Office Visit Gastroenterology Nisreen Jennings CRNP [address] [address] Health Maintenance Due Date Last Done Comments [...] 10/20/2017 LUNG CANCER SCREENING - USE SMARTSET [id number] Completed 06/23/2017 Pneumococcal Vaccine: 65+ Years Completed [...] Documents on File Type Date Recorded Patient Drop Clipper Expl anation Advanced Directive service a emelia [...] Directive Advanced Directive Advanced Directive Care Teams Linux Server Administrator Relationship Specialty Start Date End Date Kavya Dillard CRNP [address] [address] PCP - General Nurse Practitioner 12/31/20 documented as of this encounter
--- OUTSIDE RECORDS SUMMARY | 2023-04-08 23:06 | External Medical Summary | Summary of Care ---
Author Name Unknown Organization [place] [address] Care Team Providers Care Phonograph Needle Tip Maker Name Role Phone Kavya Dillard Primary Care Provider Reason for Referral * Evaluate & Treat - Unlimited Visits (Within 3 days (urgent)) - Authorized Specialty Diagnoses / Procedures Referred By Nicole cisse Referred To Contact Gastroenterology Diagnoses Recurrent colitis due to Clostridioides difficile Kavya Dillard CRNP [address] [address] Referral ID Status Reason Start Date Expiration Date Visits Requested Visits Authorized [id number] Authorized Specialty Services Required 12/26/[phone] Question Answer Referral Priority Within 3 days (urgent) For what condition is the patient being referred? 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 * Telephone Encounter - JAH Pollard - [...] assist with referral for fecal transplant in [place] please? Randy, AMBER, GARRETT [facility] * Telephone Encounter - Shannan Posey LPN - 12/26/2021 1:50 PM EDT Please advise if pt should be taking additional medication Per hospital note pt was to be on through today * Telephone Encounter - JAH Salazar - 12/26/2021 1:12 PM EDT Pt return call. Please call back [phone]. [facility] and [facility] another prescription [...] 12/25/2021 2:36 PM EDT Faxed demographics to [place] [facility] for information * Telephone Encounter - JAH Queen - 12/25/2021 12:07 PM EDT [facility] and also need to know if patienthas a secondary insurance please assist with this documented in this encounter Plan of Treatment Upcoming Encounters Date Type Specialty Care Team Description 01/28/2022 Office Visit Family Medicine Kavya Dillard CRNP [address] [address] 02/10/2022 Office Visit Gastroenterology Nisreen Jennings CRNP [address] [address] Scheduled Referrals Name Type Priority Associated Diagnoses [...] 10/20/2017 LUNG CANCER SCREENING - USE SMARTSET [id number] Completed 06/23/2017 Pneumococcal Vaccine: 65+ Years Completed [...] Documents on File Type Date Recorded 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
--- OUTSIDE RECORDS SUMMARY | 2023-04-08 23:07 | External Medical Summary | Summary of Care ---
Author Name Unknown Organization [place] [address] Care Team Providers Care Theatre Professor Name Role Phone Kavya Dillard Yoanna TUCKER Primary Care Provider Reason for Visit * Reason Onset Date Comments case management 12/15/2021 [facility], initial hospital discharge follow up Encounter Details Date Type Department Care Team Description 12/15/2021 Media Buyer Telephone Care Coordination [address] [place] [address] Roseanne Emerson RN [address] [place] [address] case management ([facility], initial hospital ... Allergies No known active allergiesdocumented as of this encounter (statuses as of 12/15/2021) Medications Medication Sig Dispensed Refills Start Date [...] Brand necessary 54 g 3 08/06/2020 Active oxygen IN GASIndications:Inc to 4LPM with ambulation/exertion 2.5 lpm at rest 3 LPM continuous oxygen with exertion DME: [facility] Indications: Inc to [...] Respimat 1.25 MCG/ACT Inhalation Aerosol Solution (Tiotropium [place] Monohydrate) INHALE 2 PUFFS BY MOUTH EVERY DAY 12 g 1 09/20/2021 Active Thiamine HCl 100 MG Oral Tablet (vitamin B-1) TAKE 1 TABLET BY MOUTH EVERY DAY 90 Tablet 3 09/22/2021 Active Vitamin B-12 100 MCG Oral Tablet (vitamin B-12) TAKE 100 MCG BY MOUTH DAILY. 90 Tablet 3 09/22/2021 Active Ipratropium [place] 0.02 % Inhalation Solution (Atrovent)Indicatio ns:Stage 3 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 ([facility]) Inhale via nebulizer 2.5 mL in the morning AND 2.5 mL at noon AND 2.5 mL before bedtime. Diagnosis code J44.9 Stage 3 Sever COPD by Gold classification [facility]. Diagnosis code J96.11 Chronic Resp Failure with hypoxia on home oxygen therapy.. 270 mL 4 09/23/2021 Active Omeprazole 40 MG Oral Capsule Delayed Release (PriLOSEC) TAKE 1 CAPSULE BY MOUTH DAILY. 1 HOUR BEFORE THE FIRST MEAL OF THE DAY 90 Capsule 0 10/17/2021 Active Prevalite 4 GM Oral Packet Take by mouth 4 g daily . 0 10/11/2021 Active Potassium Chloride ER 20 MEQ Oral Tablet Extended Release Take by mouth 1 Tablet in the morning. 30 Tablet 3 10/22/2021 Active Vancomycin HCl 125 MG Oral Capsule (Vancocin) Take by mouth 1 Capsule in the morning AND 1 Capsule before bedtime. Until November 08, then taper to one capsule daily til gone.. 0 11/04/2021 Active Levalbuterol HCl 1.25 MG/3ML Inhalation Nebulization Solution (Xopenex)Indication s:Stage 3 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 ([facility]) INHALE 1 AMPULE VIA NEBULIZER 3 TIMES A DAY. 810 mL 2 11/19/2021 Active documented as of this encounter (statuses as of 12/15/2021) Active Problems Problem Noted Date Recurrent colitis [...] as of this encounter (statuses as of 12/15/2021) Resolved Problems Problem Noted Date Resolved Date [...] as of this encounter (statuses as of 12/15/2021) Immunizations Name Administration Dates Next Due PPD [...] 4. Plan To attempt Follow-up 12/05/21 through 12/12/21--[facility], dc to home Dc dx sepsis, c-dif per dc summary: recurrent c-dif, possible 3rd occurrence with evidence of severe proctocolitis on CT ID consulted: dificid 200 mg BID til 12/16 then daily until 12/26/21 stick to diet low in dairy or caffeine (stimulates the bowels) STOP questran Attempted mobile # in Psychiatric (this belongs to son/POA) -- no answer, LMTRC Attempted pt home # [phone] -- no answer, no VM pt has pcp appt colleen 12/17 3pm [facility] documented in this encounter Plan of Treatment Upcoming Encounters Date Type Specialty Care Team Description 12/16/2021 Office Visit Family Medicine Kavya Dillard CRNP [address] [address] 12/17/2021 Telemedicine Gastroenterology Nisreen Jennings CRNP [address] [address] Health Maintenance Due Date Last Done Comments Zoster Vaccines (1 of 2) 1992 *ADVANCE DIRECTIVE NOT ON FILE 09/25/2020 Depression Screening, Annual for Pts 12 and Over 11/12/2020 11/13/2019 COVID-19 Vaccine (3 - Booster for Moderna series) 06/26/2021 01/24/2021, 10/07/2020 Influenza Vaccine (FLU shot) (#1) 2022 02/25/2021, 04/12/2019, 02/28/2018, Additional history exists O2 ASSESSMENT COMPLETED IN PAST YEAR FOR COPD 2022 2021 DTaP,Tdap,and Td Vaccines (2 - Td or Tdap) 10/21/2027 10/20/2017 LUNG CANCER SCREENING - USE SMARTSET [id number] Completed 06/23/2017 Pneumococcal Vaccine: 65+ Years Completed 10/20/2017, 04/27/2017 GARDASIL-HPV IMMUNIZATION SERIES Aged Out No longer eligible based on patient's age to complete this topic MENINGOCOCCAL (MENACTRA/MENVEO) Aged Out No longer eligible based on patient's age to complete this topic documented as of this encounter Implants Not on filedocumented as of this encounter Advance Directives Documents on File Type Date Recorded Patient Social Worker Expl anation Advanced Directive service a [...] Directive Advanced Directive Advanced Directive Care Teams Theatre Professor Relationship Specialty Start Date End Date Kavya Dillard CRNP [address] [facility] [address] [address] PCP - General Nurse Practitioner 12/31/20 documented as of this encounter
--- OUTSIDE RECORDS SUMMARY | 2023-04-08 23:07 | External Medical Summary | Summary of Care ---
Author Name Unknown Organization [place] [address] Care Team Providers Care Underwriting Internship Name Role Phone Kavya Dillard Primary Care Provider Encounter Details Date Type Department Care Team Description 12/05/2021 Scan Encounter Family [facility] [address] [facility] [place] [address] Kavya Dillard CRNP [address] [place] [address] <No scans attached> Allergies No known active [...] LPM continuous oxygen with exertion DME: [facility] Indications: Inc to 4LPM with ambulation/exertion 1 Each 0 04/01/2021 Active Folic Acid 1 MG Oral TabletIndications:C hronic respiratory failure with hypoxia, on home O2 therapy ([facility]) TAKE 1 TABLET BY MOUTH EVERY DAY [...] Respimat 1.25 MCG/ACT Inhalation Aerosol Solution (Tiotropium [place] Monohydrate) INHALE 2 PUFFS BY MOUTH EVERY DAY 12 g 1 09/20/2021 Active Thiamine HCl 100 MG Oral Tablet (vitamin B-1) TAKE 1 TABLET BY MOUTH EVERY DAY 90 Tablet 3 09/22/2021 Active Vitamin B-12 100 MCG Oral Tablet (vitamin B-12) TAKE 100 MCG BY MOUTH DAILY. 90 Tablet 3 09/22/2021 Active Ipratropium [place] 0.02 % Inhalation Solution (Atrovent)Indicatio ns:Stage 3 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 ([facility]) Inhale via nebulizer 2.5 mL in the morning AND 2.5 mL at noon AND 2.5 mL before bedtime. Diagnosis code J44.9 Stage 3 Sever COPD by Gold classification [facility]. Diagnosis code J96.11 Chronic Resp Failure with [...] 3 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 ([facility]) INHALE 1 AMPULE VIA NEBULIZER 3 [...] Visit Family Medicine Kavya Dillard CRNP [address] [address] 12/17/2021 Telemedicine Gastroenterology Nisreen Jennings CRNP [address] [address] Health Maintenance Due Date Last Done Comments [...] 10/20/2017 LUNG CANCER SCREENING - USE SMARTSET [id number] Completed 06/23/2017 Pneumococcal Vaccine: 65+ Years Completed 10/20/2017, 04/27/2017 GARDASIL-HPV IMMUNIZATION SERIES Aged Out No longer eligible based on patient's age to complete this topic MENINGOCOCCAL (MENACTRA/MENVEO) Aged Out No longer eligible based on patient's age to complete this topic documented as of this encounter Implants Not on filedocumented as of this encounter Advance Directives Documents on File Type Date Recorded Patient Wet Mix Operator Expl anation Advanced Directive service a [...] Directive Advanced Directive Advanced Directive Care Teams Underwriting Internship Relationship Specialty Start Date End Date Kavya Dillard CRNP [address] [address] PCP - General Nurse Practitioner 12/31/20 documented as of this encounter
--- OUTSIDE RECORDS SUMMARY | 2023-04-08 23:07 | External Medical Summary | Summary of Care ---
Author Name Unknown Organization [place] [address] Care Team Providers Care Director Targeted Marketing Name Role Phone Kavya Dillard Primary Care Provider Reason for Visit * Reason Comments Follow Up one month follow up, GERD, recurrent c diff Encounter Details Date Type Department Care Team Description 12/17/2021 Telemedicine Gastroenterology, [facility] [address] [facility] [place] [address] Nisreen Jennings CRNP [address] [facility] [place] [address] C. difficile colitis* Allergies No known active allergiesdocumented as of this encounter (statuses as of 12/17/2021) Medications Medication Sig Dispensed Refills Start Date [...] [facility] Indications: Inc to 4LPM with ambulation/exertio n 1 Each 0 04/01/20 21 Active Folic Acid 1 MG Oral TabletIndications: Chronic respiratory failure with hypoxia, on home O2 therapy ([facility]) TAKE 1 TABLET BY MOUTH EVERY DAY [...] Respimat 1.25 MCG/ACT Inhalation Aerosol Solution (Tiotropium [place] Monohydrate) INHALE 2 PUFFS BY MOUTH EVERY DAY 12 g 1 09/21/19 22 Active Thiamine HCl 100 MG Oral Tablet (vitamin B-1) TAKE 1 TABLET BY MOUTH EVERY DAY 90 Tablet 3 09/23/19 22 Active Vitamin B-12 100 MCG Oral Tablet (vitamin B-12) TAKE 100 MCG BY MOUTH DAILY. 90 Tablet 3 09/23/19 22 Active Ipratropium [place] 0.02 % Inhalation Solution (Atrovent)Indicati ons:Stage 3 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 ([facility]) Inhale via nebulizer 2.5 mL in the morning AND 2.5 mL at noon AND 2.5 mL before bedtime. Diagnosis code J44.9 Stage 3 Sever COPD by Gold classification [facility]. Diagnosis code J96.11 Chronic Resp Failure with hypoxia on home oxygen therapy.. 270 mL 4 09/24/19 22 Active Additional Information Patient not taking. Reported on 12/16/2021 Omeprazole 40 MG Oral Capsule Delayed Release (PriLOSEC) TAKE 1 CAPSULE BY MOUTH DAILY. 1 HOUR BEFORE THE FIRST MEAL OF THE DAY 90 Capsule 0 10/18/19 22 Active Potassium Chloride ER 20 MEQ Oral Tablet Extended Release Take by mouth 1 Tablet in the morning. 30 Tablet 3 10/23/19 22 Active Levalbuterol HCl 1.25 MG/3ML Inhalation Nebulization Solution (Xopenex)Indicatio ns:Stage 3 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 ([facility]) INHALE 1 AMPULE VIA NEBULIZER 3 TIMES A DAY. 810 mL 2 11/20/19 22 Active Dificid 200 MG Oral Tablet Take by mouth 200 mg . 0 12/13/19 22 Active Combivent Respimat 20-100 MCG/ACT Inhalation Aerosol Solution Inhale by mouth 20-100 Puffs 4 times a day . 0 11/29/19 22 Active Prevalite 4 GM Oral Packet Take by mouth 4 g daily . 0 10/12/19 22 022 Discontinued documented as of this encounter (statuses as of 12/17/2021) Active Problems Problem Noted Date Recurrent colitis [...] as of this encounter (statuses as of 12/17/2021) Resolved Problems Problem Noted Date Resolved Date [...] as of this encounter (statuses as of 12/17/2021) Immunizations Name Administration Dates Next Due PPD [...] as of this encounter Progress Notes * GARRETT Smith - 12/17/2021 2:44 PM EDT DATE OF SERVICE: 12/17/2021 REFERRING PHYSICIAN: GARRETT Root CC: Follow up Telephone Visit 12/17/2021: After connecting to the [...] fever, chills, CP, SOB. Office Visit 10/29/2021 : 80 year old male with history of COPD, others below who was recently admitted to [facility], was followed my [facility] during admission for c.diff infection. Treated w/ Dificid and advised to wake questran PRN diarrhea and probiotic. Here for follow up hospital admission. Presentlyon a tapering course of Vancomycin. Is taking this twice daily. No abd pain. Some cramping. Tolerating PO intake well. No nausea, vomiting. Moving bowels okay - soft stools. No diarrhea. Bowels moving 2-4 times daily. No black or bloody stools. No fever, chills, CP, SOB. Has never had a colonoscopy- does not want to have this test done. C.diff 09/27/21 + C.diff 09/06/21 + Past Medical History: Diagnosis Date Acute exacerbation of COPD with asthma ([facility]) 04/23/2017 [facility] Arthritis Edentulous Gastroesophageal reflux disease with esophagitis Herpes zoster 01/11/2019 right neck and scalp Inflammation of sacroiliac joint ([facility]) 04/24/2005 Loss of teeth due to trauma, extraction, or periodontal disease Other disorders of vitreous 12/2000 Posterior vitreous detachment OS Other specified disorders of rotator cuff syndrome of shoulder and allied disorders 05/2004 right shoulder Pneumonia 06/13/2017 left basal infiltrate Pneumonia due to Pseudomonas ([facility]) 05/20/2017 Severe chronic obstructive pulmonary disease (HCC) [...] REMOVE CATARACT, INSERT LENS PROSTH Right 06/12/2019 [facility] REMOVE CATARACT, INSERT LENS PROSTH Left 06/26/2019 [facility] Social History Tobacco Use Smoking status: Former Smoker Packs/day: 2.00 Years: 59.00 Pack years: 118.00 Types: Cigarettes Start date: 1954 Quit date: 04/07/2016 Years since quittin.6 Smokeless tobacco: Never Used Tobacco comment: started [...] (MULTIVITAMIN ADULTS) TABS Take by mouth daily. Ventolin HFA 108 (90 Base) MCG/ACT Inhalation Aerosol Solution Inhale 2 Puffs by mouth every 4 hours as needed for Wheezing. Brand necessary (Patient not taking: Reported on 12/16/2021 ) 54 g 3 oxygen IN GAS 2.5 lpm at rest 3 LPM continuous oxygen with exertion DME: [facility] Indications: Inc to 4LPM with ambulation/exertion 1 Each 0 Folic Acid 1 MG Oral Tablet TAKE 1 TABLET BY MOUTH EVERY DAY 90 Tablet 2 Roflumilast 500 MCG Oral Tablet (Daliresp) Take by mouth 1 Tablet in the morning. (Patient not taking: Reported on 12/16/2021 ) 180 Tablet 4 Fluticasone-Salmeterol 250-50 MCG/DOSE Inhalation Aerosol Powder Breath Activated (Advair Diskus) Inhale by mouth 1 Puff in the morning AND 1 Puff before bedtime. Brand necessary. 3 Each 3 Spiriva Respimat 1.25 MCG/ACT Inhalation Aerosol Solution (Tiotropium [place] Monohydrate) INHALE 2 PUFFS BY MOUTH EVERY DAY 12 g 1 Thiamine HCl 100 MG Oral Tablet (vitamin B-1) TAKE 1 TABLET BY MOUTH EVERY DAY 90 Tablet 3 Vitamin B-12 100 MCG Oral Tablet (vitamin B-12) TAKE 100 MCG BY MOUTH DAILY. 90 Tablet 3 Ipratropium [place] 0.02 % Inhalation Solution (Atrovent) Inhale via nebulizer 2.5 mL in the morning AND 2.5 mL at noon AND 2.5 mL before bedtime. Diagnosis code J44.9 Stage 3 Sever COPD by Gold classification [facility]. Diagnosis code J96.11 Chronic Resp Failure with hypoxia on home oxygen therapy..(Patient not taking: Reported on 12/16/2021 ) 270 mL 4 Omeprazole 40 MG Oral Capsule Delayed Release (PriLOSEC) TAKE 1 CAPSULE BY MOUTH DAILY. 1 HOUR BEFORE THE FIRST MEAL OF THE DAY 90 Capsule 0 Prevalite 4 GM Oral Packet Take by mouth 4 g daily . (Patient not taking: Reported on 12/16/2021 ) Potassium Chloride ER 20 MEQ Oral Tablet Extended Release Take by mouth 1 Tablet in the morning. 30 Tablet 3 Levalbuterol HCl 1.25 MG/3ML Inhalation Nebulization Solution (Xopenex) INHALE 1 AMPULE VIA NEBULIZER 3 TIMES A DAY. 810 mL 2 Dificid 200 MG Oral Tablet Take by mouth 200 mg . Combivent Respimat 20-100 MCG/ACT Inhalation Aerosol Solution Inhale by mouth 20-100 Puffs 4 times a day . Famotidine 20 MG Oral Tablet (Pepcid) Take by mouth 1 Tablet as needed before bedtime for Heartburn. 30 Tablet 11 No current facility-administered medications for this visit. REVIEW OF SYSTEMS: All other findings negative except as noted in HPI. DIAGNOSTIC TEST: N/A ASSESSMENT AND PLAN: 81 year old male, recurrent c.diff, on Dificid directed by ID, who recommend fecal transplant. Unfortunately, we are not offering these at this time due to COVID restrictions. - Avoid unnecessary ABX use - Continue Dificid as doing per ID - Can continue Florastor - Hand hygiene with soap and water - Clean bathroom with bleach products - Will send message to PCP regarding fecal transplant - ED for emergencies - Please call with any questions or concerns RETURN TO CLINIC: 2 weeks GARRETT Colon 12/17/2021 3:09 PM documented in this encounter Plan of Treatment Upcoming Encounters Date Type Specialty Care Team Description 01/28/2022 Office Visit Family Medicine Kavya Dillard CRNP [address] [place] [id number] Health Maintenance Due Date Last Done Comments [...] 10/20/2017 LUNG CANCER SCREENING - USE SMARTSET 11629 Completed 06/23/2017 Pneumococcal Vaccine: 65+ Years Completed [...] to clostridium difficile documented in this encounter Advance Directives Documents on File Type Date Recorded 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
--- OUTSIDE RECORDS SUMMARY | 2023-04-08 23:07 | External Medical Summary | Summary of Care ---
Author Name Unknown Organization [place] [address] Care Team Providers Care Larriman Helper Name Role Phone Kavya Dillard Primary Care Provider Reason for Visit * Reason Onset Date Comments case management 12/17/2021 Medication Question 12/17/2021 Encounter Details Date Type Department Care Team Description 12/17/2021 Pantographer Telephone Family Practice [facility] [address] [place] [address] Nadia Trujillo, RN [address] [place] [address] case management; Medication Question Allergies No known active allergiesdocumented as of [...] LPM continuous oxygen with exertion DME: [facility] Indications: Inc to 4LPM [...] Respimat 1.25 MCG/ACT Inhalation Aerosol Solution (Tiotropium [place] Monohydrate) INHALE 2 PUFFS BY MOUTH EVERY DAY 12 g 1 09/20/2021 Active Thiamine HCl 100 MG Oral Tablet (vitamin B-1) TAKE 1 TABLET BY MOUTH EVERY DAY 90 Tablet 3 09/22/2021 Active Vitamin B-12 100 MCG Oral Tablet (vitamin B-12) TAKE 100 MCG BY MOUTH DAILY. 90 Tablet 3 09/22/2021 Active Ipratropium [place] 0.02 % Inhalation Solution (Atrovent)Indicatio ns:Stage 3 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 ([facility]) Inhale via nebulizer 2.5 mL in the morning AND 2.5 mL at noon AND 2.5 mL before bedtime. Diagnosis code J44.9 Stage 3 Sever COPD by Gold classification [facility]. Diagnosis code J96.11 Chronic Resp Failure with [...] Telephone Encounter - Shannan Posey LPN - 12/17/2021 1:34 PM EDT Called pt, aware of message below and verbalized understanding Pt does need prescription for Pepcid. Pended, please sign if appropriate * Telephone Encounter - GARRETT Root - 12/17/2021 12:58 PM EDT Please notify patient Spiriva should be only 2 puffs once daily if respimat. If regular spiriva should only be once a day. florastor and tums discontinue Pepcid is 20 mg as needed for heartburn Combivent is as needed, no xopenex. Can use questran as needed Randy, AMBER, GARRETT [facility] * Telephone Encounter - Nadia Trujillo RN - 12/17/2021 10:59 AM EDT Med rec completed with spouse today. On hospital discharge instructions - there is no Spiriva, Florastor, or Tums - but patient is taking these. He is actually taking the Spiriva twice daily. Could you please verify if patient is to be taking these? Also, on hospital discharge instructions, it has listed - famotidine and combivent. Patient is NOT taking these - could you please clarify? On discharge instructions Xopenex is listed as TID. Spouse reports you told her only 'if needed'? Is this correct? Please clarify. Also: Discharge instructions say to discontinue the Questran/cholestyramine - but patient is still using 'if needed'. Please clarify. Spouse reports she gave you a list yesterday of everything he is taking, and not taking, and you told her that was okay? Please advise...... documented in this encounter Plan of Treatment Upcoming Encounters Date Type Specialty Care Team Description 12/17/2021 Telemedicine Gastroenterology Nisreen Jennings CRNP [address] [place] [id number] Arrived 01/28/2022 Office Visit Family Medicine Kavya Dillard CRNP [address] [place] [address] Health Maintenance Due Date Last Done Comments [...] 10/20/2017 LUNG CANCER SCREENING - USE SMARTSET 86802 Completed 06/23/2017 Pneumococcal Vaccine: 65+ Years Completed 10/20/2017, 04/27/2017 GARDASIL-HPV IMMUNIZATION SERIES Aged Out No longer eligible based on patient's age to complete this topic MENINGOCOCCAL (MENACTRA/MENVEO) Aged Out No longer eligible based on patient's age to complete this topic documented as of this encounter Implants Not on filedocumented as of this encounter Advance Directives Documents on File Type Date Recorded 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
--- OUTSIDE RECORDS SUMMARY | 2023-04-08 23:07 | External Medical Summary | Summary of Care ---
Author Name Unknown Organization [place] [address] Care Team Providers Care Shipping Helper Name Role Phone Dorischelsey Kavya TUCKER Primary Care Provider Encounter Details Date Type Department Care Team Description 12/09/2021 Scan Encounter Infectious Disease, [place] [address] [place] [address] Rigoberto Agee II, [address] [place] [address] <No scans attached> Allergies No known active allergiesdocumented as of this encounter (statuses as of 12/09/2021) Medications Medication Sig Dispensed Refills Start Date [...] hypoxia, on home O2 therapy ([facility]) TAKE 1 TABLET BY MOUTH EVERY DAY [...] Respimat 1.25 MCG/ACT Inhalation Aerosol Solution (Tiotropium [place] Monohydrate) INHALE 2 PUFFS BY MOUTH EVERY DAY 12 g 1 09/20/2021 Active Thiamine HCl 100 MG Oral Tablet (vitamin B-1) TAKE 1 TABLET BY MOUTH EVERY DAY 90 Tablet 3 09/22/2021 Active Vitamin B-12 100 MCG Oral Tablet (vitamin B-12) TAKE 100 MCG BY MOUTH DAILY. 90 Tablet 3 09/22/2021 Active Ipratropium [place] 0.02 % Inhalation Solution (Atrovent)Indicatio ns:Stage 3 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 ([facility]) Inhale via nebulizer 2.5 mL in the morning AND 2.5 mL at noon AND 2.5 mL before bedtime. Diagnosis code J44.9 Stage 3 Sever COPD by Gold classification [facility]. 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 documented as of this encounter (statuses as of 12/09/2021) Resolved Problems Problem Noted Date Resolved Date Pneumonia 06/13/2017 10/27/2017 Overview: left basal infiltrate [...] as of this encounter (statuses as of 12/09/2021) Immunizations Name Administration Dates Next Due PPD [...] 12/17/2021 Telemedicine Gastroenterology Nisreen Jennings CRNP [address] [place] [address] Health Maintenance Due Date Last Done Comments Zoster Vaccines (1 of 2) 1992 *ADVANCE DIRECTIVE NOT ON FILE 09/25/2020 Depression Screening, Annual for Pts 12 and Over 11/12/2020 11/13/2019 COVID-19 Vaccine (3 - Booster for Moderna series) 06/26/2021 01/24/2021, 10/07/2020 Influenza Vaccine (FLU shot) (#1) 2022 02/25/2021, 04/12/2019, 02/28/2018, Additional history exists O2 ASSESSMENT COMPLETED IN PAST YEAR FOR COPD 2022 2021 DIABETES SCREEN EVERY 3 YRS-AGE 45 AND ABOVE 10/10/2024 10/10/2021, 09/18/2021, 09/10/2021, Additional history exists DTaP,Tdap,and Td Vaccines (2 - Td or Tdap) 10/21/2027 10/20/2017 LUNG CANCER SCREENING - USE SMARTSET 51840 Completed 06/23/2017 Pneumococcal Vaccine: 65+ Years Completed 10/20/2017, 04/27/2017 GARDASIL-HPV IMMUNIZATION SERIES Aged Out No longer eligible based on patient's age to complete this topic MENINGOCOCCAL (MENACTRA/MENVEO) Aged Out No longer eligible based on patient's age to complete this topic documented as of this encounter Implants Not on filedocumented as of this encounter Advance Directives Documents on File Type Date Recorded 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
--- OUTSIDE RECORDS SUMMARY | 2023-04-08 23:07 | External Medical Summary | Summary of Care ---
Author Name Unknown Organization [place] [address] Care Team Providers Care Rod And Tube Straightener Name Role Phone Kavya Dillard Primary Care Provider Encounter Details Date Type Department Care Team Description 12/12/2021 Scan Encounter Family [facility] [address] [facility] [place] [address] Kavya Dillard CRNP [address] [place] [address] <No scans attached> Allergies No known active [...] LPM continuous oxygen with exertion DME: [facility] Indications: Inc to 4LPM with ambulation/exertion 1 Each 0 04/01/2021 Active Folic Acid 1 MG Oral TabletIndications:C hronic respiratory failure with hypoxia, on home O2 therapy ([facility]) TAKE 1 TABLET BY MOUTH [...] Respimat 1.25 MCG/ACT Inhalation Aerosol Solution (Tiotropium [place] Monohydrate) INHALE 2 PUFFS BY MOUTH EVERY DAY 12 g 1 09/20/2021 Active Thiamine HCl 100 MG Oral Tablet (vitamin B-1) TAKE 1 TABLET BY MOUTH EVERY DAY 90 Tablet 3 09/22/2021 Active Vitamin B-12 100 MCG Oral Tablet (vitamin B-12) TAKE 100 MCG BY MOUTH DAILY. 90 Tablet 3 09/22/2021 Active Ipratropium [place] 0.02 % Inhalation Solution (Atrovent)Indicatio ns:Stage 3 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 ([facility]) Inhale via nebulizer 2.5 mL in the morning AND 2.5 mL at noon AND 2.5 mL before bedtime. Diagnosis code J44.9 Stage 3 Sever COPD by Gold classification [facility]. Diagnosis code J96.11 Chronic Resp [...] Kavya Dillard CRNP [address] [place] [address] 12/17/2021 Telemedicine Gastroenterology Nisreen Jennings CRNP [address] [place] [address] Health Maintenance Due Date Last Done Comments [...] 10/20/2017 LUNG CANCER SCREENING - USE SMARTSET [id number] Completed 06/23/2017 Pneumococcal Vaccine: 65+ Years Completed 10/20/2017, 04/27/2017 GARDASIL-HPV IMMUNIZATION SERIES Aged Out No longer eligible based on patient's age to complete this topic MENINGOCOCCAL (MENACTRA/MENVEO) Aged Out No longer eligible based on patient's age to complete this topic documented as of this encounter Implants Not on filedocumented as of this encounter Advance Directives Documents on File Type Date Recorded 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
--- OUTSIDE RECORDS SUMMARY | 2023-04-08 23:07 | External Medical Summary | Summary of Care ---
Author Name Unknown Organization [place] [address] Care Team Providers Care Clean Room Assembler Name Role Phone Kavya Dillard Primary Care Provider Reason for Referral * Evaluate & Treat - Unlimited Visits (Within 3 days (urgent)) - Authorized Specialty Diagnoses / Procedures Referred By Nicole cisse Referred To Contact Occupational Medicine / Occupational Therapy Diagnoses Severe protein-calorie malnutrition (HCC) Debility Kavya Dillard CRNP [address] [place] [address] Referral ID Status Reason Start Date Expiration Date Visits Requested Visits Authorized Authorized Specialty Services Required 12/16/2021 999 999 Question Answer Referral Priority Within 3 days (urgent) * Evaluate & Treat - Unlimited Visits (Within 3 days (urgent)) - Authorized Specialty Diagnoses / Procedures Referred By Nicole cisse Referred To Contact Physical Therapy / Physical Medicine And Rehab Diagnoses Severe protein-calorie malnutrition (HCC) Debility Kavya Dillard CRNP [address] [place] [address] Referral ID Status Reason Start Date Expiration Date Visits Requested Visits Authorized Authorized Specialty Services Required 12/16/2021 999 999 Question Answer Referral Priority Within 3 days (urgent) Reason for Visit * Reason Comments Hospital Follow-Up Pt here for hosp f/u , admitted11/28/2021, discharged 12/12/2021 at [facility] for resp failure and abd pain with C diff. Encounter Details Date Type Department Care Team Description 12/16/2021 Office Visit [facility] [address] [place] [address] Kavya Dillard CRNP [address] [address] Recurrent colitis due to Clostridioides difficile*; Severe protein-calorie malnutrition (HCC); Chronic respiratory failure with hypoxia, on home O2 therapy ([facility]); COPD, group D, by GOLD 2017 classification ([facility]); Hypomagnesemia; Hypokalemia; Debility Allergies No known active allergiesdocumented as of this encounter (statuses as of 12/16/2021) Medications Medication Sig Dispensed Refills Start Date [...] LPM continuous oxygen with exertion [facility] Indications: Inc to 4LPM with ambulation/exertio n 1 Each 0 04/01/20 21 Active Folic Acid 1 MG Oral TabletIndications: Chronic respiratory failure with hypoxia, on home O2 therapy ([facility]) TAKE 1 TABLET BY MOUTH [...] Respimat 1.25 MCG/ACT Inhalation Aerosol Solution (Tiotropium [place] Monohydrate) INHALE 2 PUFFS BY MOUTH EVERY DAY 12 g 1 09/21/19 Active Thiamine HCl 100 MG Oral Tablet (vitamin B-1) TAKE 1 TABLET BY MOUTH EVERY DAY 90 Tablet 3 09/23/19 Active Vitamin B-12 100 MCG Oral Tablet (vitamin B-12) TAKE 100 MCG BY MOUTH DAILY. 90 Tablet 3 09/23/19 Active Ipratropium [place] 0.02 % Inhalation Solution (Atrovent)Indicati ons:Stage 3 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 ([facility]) Inhale via nebulizer 2.5 mL in the morning AND 2.5 mL at noon AND 2.5 mL before bedtime. Diagnosis code J44.9 Stage 3 Sever COPD by Gold classification [facility]. Diagnosis code J96.11 Chronic Resp Failure with hypoxia on home oxygen therapy.. 270 mL 4 09/24/19 22 Active Additional Information Patient not taking. Reported on 12/16/2021 Omeprazole 40 MG Oral Capsule Delayed Release (PriLOSEC) TAKE 1 CAPSULE BY MOUTH DAILY. 1 HOUR BEFORE THE FIRST MEAL OF THE DAY 90 Capsule 0 10/18/19 22 Active Prevalite 4 GM Oral Packet Take by mouth 4 g daily . 0 10/12/19 22 Active Potassium Chloride ER 20 MEQ Oral Tablet Extended Release Take by mouth 1 Tablet in the morning. 30 Tablet 3 10/23/19 22 Active Levalbuterol HCl 1.25 MG/3ML Inhalation Nebulization Solution (Xopenex)Indicatio ns:Stage 3 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 ([facility]) INHALE 1 AMPULE VIA NEBULIZER 3 TIMES A DAY. 810 mL 2 11/20/19 22 Active Dificid 200 MG Oral Tablet Take by mouth 200 mg . 0 12/13/19 22 Active Combivent Respimat 20-100 MCG/ACT Inhalation Aerosol Solution Inhale by mouth 20-100 Puffs 4 times a day . 0 11/29/19 Active Vancomycin HCl 125 MG Oral Capsule (Vancocin) Take by mouth 1 Capsule in the morning AND 1 Capsule before bedtime. Until November 08, then taper to one capsule daily til gone.. 0 11/05/19 22 022 Discontinued documented as of this encounter (statuses as of 12/16/2021) Active Problems Problem Noted Date Recurrent colitis [...] as of this encounter (statuses as of 12/16/2021) Resolved Problems Problem Noted Date Resolved Date [...] as of this encounter (statuses as of 12/16/2021) Immunizations Name Administration Dates Next Due PPD [...] Sign Reading Time Taken Comments Blood Pressure 92/54 12/16/2021 3:12 PM EDT Pulse 86 12/16/2021 3:12 PM EDT Temperature 36.3 C (97.3 F) 12/16/2021 3:12 PM ED T Respiratory Rate 20 12/16/2021 3:12 PM EDT Oxygen Saturation 98% 12/16/2021 3:12 PM EDT Inhaled Oxygen Concentration - - Weight 46.7 kg (103 lb) 12/16/2021 3:12 PM EDT Height - - Body Mass Index 16.62 10/29/2021 3:02 PM EDT documented in this encounter Progress Notes * GARRETT Root - 12/16/2021 3:16 PM EDT Follow up Family Medicine Visit CC: Chief Complaint Patient presents with Hospital Follow-Up Pt here for hosp f/u, admitted11/28/2021, discharged 12/12/2021 at [facility] for resp failure and abd pain with C diff. History of Present Illness: Jer Abreu Jr. is a 81 year old male presenting with his son today for Hospital follow up. He was at admitted to [facility] for c Diff colitis and assocaited electrolyte imbalances. Hospitalized from 12/05/2021 to 12/13/2021. ID recommendations:On dificid 200 mg bid Until 2 day then. Possible fecal transplant. Now having diarrhea 4 times daily as compared to 9 times when admitted. Still watery. No blood. Some mucous. Still having abominal pain but improved compared to Social History Socioeconomic History Marital status: Spouse [...] exacerbation of COPD with asthma ([facility]) 04/23/2017 [facility] Arthritis Edentulous Gastroesophageal reflux disease with esophagitis Herpes zoster 01/11/2019 right neck and scalp Inflammation of sacroiliac joint ([facility]) 04/24/2005 Loss of teeth due to trauma, extraction, or periodontal disease Other disorders of vitreous 12/2000 Posterior vitreous detachment OS Other specified disorders of rotator cuff syndrome of shoulder and allied disorders 05/2004 right shoulder Pneumonia 06/13/2017 left basal infiltrate Pneumonia due to Pseudomonas ([facility]) 05/20/2017 Severe chronic obstructive pulmonary disease ([facility]) 10/28/2016 severe by ATS criteria. [...] REMOVE CATARACT, INSERT LENS PROSTH Right 06/12/2019 [facility] REMOVE CATARACT, INSERT LENS PROSTH Left 06/26/2019 [facility] Outpatient Medications Marked as Taking for the 12/16/21 encounter (Office Visit) with GARRETT Root Medication Sig Levalbuterol HCl 1.25 MG/3ML Inhalation Nebulization Solution (Xopenex) INHALE 1 AMPULE VIA NEBULIZER 3 TIMES A DAY. Potassium Chloride ER 20 MEQ Oral Tablet Extended Release Take by mouth 1 Tablet in the morning. Omeprazole 40 MG Oral Capsule Delayed Release (PriLOSEC) TAKE 1 CAPSULE BY MOUTH DAILY. 1 HOUR BEFORE THE FIRST MEAL OF THE DAY Vitamin B-12 100 MCG Oral Tablet (vitamin B-12) TAKE 100 MCG BY MOUTH DAILY. Fluticasone-Salmeterol 250-50 MCG/DOSE Inhalation Aerosol Powder Breath Activated (Advair Diskus) Inhale by mouth 1 Puff in the morning AND 1 Puff before bedtime. Brand necessary. Folic Acid 1 MG Oral Tablet TAKE 1 TABLET BY MOUTH EVERY DAY oxygen IN GAS 2.5 lpm at rest 3 LPM continuous oxygen with exertion DME: [facility] Indications: Inc to 4LPM with ambulation/exertion acetaminophen [...] Review of Systems Constitutional: Positive for fatigue. Negative for chills and fever. Respiratory: Positive for cough and shortness of breath. Negative for chest tightness and wheezing. At baseline sob Cardiovascular: Negative for chest pain, palpitations and leg swelling. Gastrointestinal: Positive for abdominal pain and diarrhea. Negative for blood in stool, nausea andvomiting. Neurological: Negative for dizziness and syncope. Psychiatric/Behavioral: Negative for sleep disturbance. The patient is not nervous/anxious. Physical Exam: BP 92/54 | Pulse 86 | Temp 36.3 C (97.3 F) | Resp 20 | Wt 46.7 kg (103 lb) | SpO2 98% | BMI 16.62 kg/m | BSA 1.47 m Physical Exam Constitutional: Comments: Cachetic Seated in wheelchair HENT: Head: Normocephalic. Eyes: Pupils: Pupils are equal, round, and reactive to light. Cardiovascular: Rate and Rhythm: Normal rate. Pulmonary: Effort: Pulmonary effort is normal. Breath sounds: Examination of the left-upper field reveals rhonchi. Decreased breath sounds and rhonchi present. No wheezing. Abdominal: General: Bowel sounds are normal. Palpations: Abdomen is soft. Tenderness: There is generalized abdominal tenderness. Musculoskeletal: Cervical back: Normal range of motion. Neurological: Mental Status: He is alert and oriented to person, place, and time. Psychiatric: Attention and Perception: Attention normal. Mood and Affect: Mood normal. Speech: Speech normal. Behavior: Behavior normal. Behavior is cooperative. Cognition and Memory: Cognition and memory normal. Judgment: Judgment normal. Assessment and Plan: 1. Recurrent colitis due to Clostridioides difficile Now with watery diarrhea x 4 times per day which is improved. Suspected 3rd recurrence of c diff colitis Failed vacomycin Failed flagyl 3rd admission Now on dificid per ID Continue follow up with GI Considering fecal transplant 2. Severe protein-calorie malnutrition (HCC) WITH DEBILITY Weight at 103- up from 94 during hospital admission - PHYSICAL THERAPY REFERRAL OP - OCCUPATIONAL THERAPY REFERRAL OP 3. Chronic respiratory failure with hypoxia, on home O2 therapy (HCC) Continue oxygen 4. COPD, group D, by GOLD 2017 classification (HCC) Stable 5. Hypomagnesemia Due to recurrent diarrhea 6. Hypokalemia Due to recurrent diarrhea 7. Debility Secondary to chronic respiratory failure c diff colitis - PHYSICAL THERAPY REFERRAL OP - OCCUPATIONAL THERAPY REFERRAL OP I have advised the patient to call our office incase of any worsening or new symptoms. I spent a total of 30-39 minutes (exact time 35 mins) on the date of service in preparation, delivery, and documentation of the care provided to Jer Abreu Jr. excluding any time spent in the performance of separately billed services. AMBER Padilla, GARRETT [facility] documented in this encounter Plan of Treatment Upcoming Encounters Date Type Specialty Care Team Description 12/17/2021 Telemedicine Gastroenterology Nisreen Jennings CRNP [address] [place] [address] 01/28/2022 Office Visit Family Medicine Kavya Dillard CRNP [address] [place] [address] Scheduled Referrals Name Type Priority Associated Diagnoses Orde r Schedule PHYSICAL THERAPY REFERRAL OP Referral Within 3 days (urgent) Severe protein-calorie malnutrition (HCC) Debility Ordered: 12/16/2021 OCCUPATIONAL THERAPY REFERRAL OP Referral Within 3 days (urgent) Severe protein-calorie malnutrition (HCC) Debility Ordered: 12/16/2021 Health Maintenance Due Date Last Done Comments [...] 10/20/2017 LUNG CANCER SCREENING - USE SMARTSET 54669 Completed 06/23/2017 Pneumococcal Vaccine: 65+ Years Completed 10/20/2017, 04/27/2017 GARDASIL-HPV IMMUNIZATION SERIES Aged Out No longer eligible based on patient's age to complete this topic MENINGOCOCCAL (MENACTRA/MENVEO) Aged Out No longer eligible based on patient's age to complete this topic documented as of this encounter Implants Not on filedocumented as of this encounter Visit Diagnoses Diagnosis Recurrent colitis due to Clostridioides difficile- Primary Severe protein-calorie malnutrition (HCC) Other severe protein-calorie malnutrition Chronic respiratory failure with hypoxia, on home O2 therapy (HCC) COPD, group D, by GOLD 2017 classification (HCC) Hypomagnesemia Disorders of magnesium metabolism Hypokalemia Hypopotassemia Debility Debility, unspecified documented in this encounter Advance Directives Documents on File Type Date Recorded Patient Quality Control Coordinator Expl anation Advanced Directive service a emelia [...] Directive Advanced Directive Advanced Directive Care Teams Clean Room Assembler Relationship Specialty Start Date End Date Kavya Dillard CRNP [address] [facility] [place] [address] PCP - General Nurse Practitioner 12/31/20 documented as of this encounter"
--- OUTSIDE RECORDS SUMMARY | 2023-04-08 23:08 | External Medical Summary | Summary of Care ---
Author Name Unknown Organization [place] [address] Care Team Providers Care Rn Utilization Management Um Name Role Phone Gilma Kavya TUCKER Primary Care Provider Reason for Visit * Reason Onset Date Comments case management 11/04/2021 Week #3 hosp dc f/u Encounter Details Date Type Department Care Team Description 11/04/2021 It Specialist Telephone Care Coordination [address] [facility] [place], [place] [id number] Roseanne Emerson, RN [address] [place] [address] case management (Week #3 hosp dc f/u) Allergies No known active allergiesdocumented as of this encounter (statuses as of 11/11/2021) Medications Medication Sig Dispensed Refills Start Date [...] necessary 54 g 3 08/07/19 21 Active Levalbuterol HCl 1.25 MG/3ML Inhalation Nebulization Solution (Xopenex)Indicatio ns:Stage 3 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 ([facility]) INHALE 1 AMPULE VIA NEBULIZER 3 TIMES A DAY. 810 mL 1 03/11/20 21 Active oxygen IN GASIndications:Inc to 4LPM with ambulation/exertio n 2.5 lpm at rest 3 LPM continuous oxygen with exertion DME: [facility] Indications: Inc to 4LPM with ambulation/exertio n 1 Each 0 04/01/20 21 Active Folic Acid 1 MG Oral TabletIndications: Chronic respiratory failure with hypoxia, on home O2 therapy ([facility]) TAKE 1 TABLET BY MOUTH EVERY DAY 90 Tablet 2 05/08/20 21 Active Roflumilast 500 MCG Oral Tablet (Daliresp) Take by mouth 1 Tablet in the morning. 180 Tablet 4 08/26/19 22 Active Fluticasone-Salmet umberto 250-50 MCG/DOSE Inhalation Aerosol Powder Breath Activated (Advair Diskus)Indications :SOB (shortness of breath) Inhale by mouth 1 Puff in the morning AND 1 Puff before bedtime. Brand necessary. 3 Each 3 09/11/19 22 Active Spiriva Respimat 1.25 MCG/ACT Inhalation Aerosol Solution (Tiotropium [place] Monohydrate) INHALE 2 PUFFS BY MOUTH EVERY DAY 12 g 1 09/21/19 22 Active Thiamine HCl 100 MG Oral Tablet (vitamin B-1) TAKE 1 TABLET BY MOUTH EVERY DAY 90 Tablet 3 09/23/19 22 Active Vitamin B-12 100 MCG Oral Tablet (vitamin B-12) TAKE 100 MCG BY MOUTH DAILY. 90 Tablet 3 09/23/19 22 Active Ipratropium [place] 0.02 % Inhalation Solution (Atrovent)Indicati ons:Stage 3 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 ([facility]) Inhale via nebulizer 2.5 mL in the morning AND 2.5 mL at noon AND 2.5 mL before bedtime. Diagnosis code J44.9 Stage 3 Sever COPD by Gold classification [facility]. Diagnosis code J96.11 Chronic Resp Failure with hypoxia on home oxygen therapy.. 270 mL 4 09/24/19 22 Active Omeprazole 40 MG Oral Capsule Delayed Release (PriLOSEC) TAKE 1 CAPSULE BY MOUTH DAILY. 1 HOUR BEFORE THE FIRST MEAL OF THE DAY 90 Capsule 0 10/18/19 22 Active Metoprolol Tartrate 25 MG Oral Tablet (Lopressor) Take by mouth 12.5 mg in the morning AND 12.5 mg before bedtime. 0 09/06/19 22 Active Combivent Respimat 20-100 MCG/ACT Inhalation Aerosol Solution Inhale by mouth 1 Puff 4 times a day . As directed 0 10/10/19 22 Active Prevalite 4 GM Oral Packet Take by mouth 4 g daily . 0 10/12/19 22 Active Potassium Chloride ER 20 MEQ Oral Tablet Extended Release Take by mouth 1 Tablet in the morning. 30 Tablet 3 10/23/19 22 Active Vancomycin HCl 125 MG Oral Capsule (Vancocin) Take by mouth 1 Capsule in the morning AND 1 Capsule before bedtime. Until November 08, then taper to one capsule daily til gone.. 0 11/05/19 22 Active Vancomycin HCl 125 MG Oral Capsule (Vancocin) Take by mouth 125 mg every 6 hours . 0 022 Discontinued documented as of this encounter (statuses as of 11/11/2021) Active Problems Problem Noted Date Atrial fibrillation [...] as of this encounter (statuses as of 11/11/2021) Resolved Problems Problem Noted Date Resolved Date [...] as of this encounter (statuses as of 11/11/2021) Immunizations Name Administration Dates Next Due PPD [...] Telephone Encounter - Roseanne Emerson RN - 11/04/2021 10:15 AM EDT Hospital discharge follow up call Violeta answered the phone Reviewed 10/29/21 gastro appointment notes with her "I can tell he is getting better" Still some abd cramping "It's not diarrhea, it's like a cow rylan" Still on vanco -- dose 125 mg, 6 days 4x/day, then 10 days of 3, then 10 days of 2, and then 10 days of 1 pill till done. Right now on twice a day dosing, November 08 will start one tablet. They will have a few pills left, I advised finish them all. Home health nurse has discharged, last therapy visit today Breathing: using all his inhalers and nebulizer as ordered. Violeta has them all spaced out as instructed by a provider; on oxygen 3L all the time; trying to get portable concentrator, discussed supply chain issues and perhaps RT eval for conserving device with small portable tanks Appetite: okay, trying to drink more, trying to get more Ensure in him Voiding: normally Edema: denies Cardiac: had one episode of chest tightness but transient and no recurrence Educated on why clorox needed to clean after c-dif, good handwashing with soap and water, hand sanitizers do not work Encouraged Ensure for protein and water for hydration Encouraged continued use of inhalers/nebulizer treatments Message to GI regarding current Vanco dose Message to PCP regarding portable oxygen order -- reply through patient chart MyG, patient's son will pass on info to them Follow up next week Roseanne TUCKER [facility] [place] Float It Specialist Care Coordination / documented in this encounter Plan of Treatment Upcoming Encounters Date Type Specialty Care Team Description 12/09/2021 Office Visit Family Medicine Kavya Dillard CRNP [address] [place] [address] 12/17/2021 Telemedicine Gastroenterology Nisreen Jennings CRNP [address] [place] [address] Health Maintenance Due Date Last Done Comments Zoster Vaccines (1 of 2) 1992 *ADVANCE DIRECTIVE NOT ON FILE 09/25/2020 Depression Screening, Annual for Pts 12 and Over 11/12/2020 11/13/2019 COVID-19 Vaccine (3 - Booster for Moderna series) 06/26/2021 01/24/2021, 10/07/2020 O2 ASSESSMENT COMPLETED IN PAST YEAR FOR COPD 10/29/2022 10/29/2021 DIABETES SCREEN EVERY 3 YRS-AGE 45 AND ABOVE 10/10/2024 10/10/2021, 09/18/2021, 09/10/2021, Additional history exists DTaP,Tdap,and Td Vaccines (2 - Td or Tdap) 10/21/2027 10/20/2017 LUNG CANCER SCREENING - USE SMARTSET 12822 Completed 06/23/2017 Pneumococcal Vaccine: 65+ Years Completed 10/20/2017, 04/27/2017 Influenza Vaccine (FLU shot) Completed , 04/12/2019, 02/28/2018, Additional history exists GARDASIL-HPV IMMUNIZATION SERIES Aged Out No longer eligible based on patient's age to complete this topic MENINGOCOCCAL (MENACTRA/MENVEO) Aged Out No longer eligible based on patient's age to complete this topic documented as of this encounter Implants Not on filedocumented as of this encounter Advance Directives Documents on File Type Date Recorded Patient Elevator Operator Service Expl anation Advanced Directive service a emelia [...] Directive Advanced Directive Advanced Directive Care Teams Rn Utilization Management Um Relationship Specialty Start Date End Date Kavya Dillard CRNP [address] [place] [address] PCP - General Nurse Practitioner 12/31/20 documented as of this encounter
--- OUTSIDE RECORDS SUMMARY | 2023-04-08 23:08 | External Medical Summary | Summary of Care ---
Author Name Unknown Organization [place] [address] Care Team Providers Care Control Tower Operator Name Role Phone Kavya Dillard Primary Care Provider Encounter Details Date Type Department Care Team Description 12/05/2021 Scan Encounter Family [facility] [address] [facility] [place] [address] Kavya Dillard CRNP [address] [place] [address] <No scans attached> Allergies No known active [...] LPM continuous oxygen with exertion DME: Jon [facility] Indications: Inc to 4LPM with ambulation/exertion 1 Each 0 04/01/2021 Active Folic Acid 1 MG Oral TabletIndications:C hronic respiratory failure with hypoxia, on home O2 therapy ([facility]) TAKE 1 TABLET BY MOUTH [...] Respimat 1.25 MCG/ACT Inhalation Aerosol Solution (Tiotropium [place] Monohydrate) INHALE 2 PUFFS BY MOUTH EVERY DAY 12 g 1 09/20/2021 Active Thiamine HCl 100 MG Oral Tablet (vitamin B-1) TAKE 1 TABLET BY MOUTH EVERY DAY 90 Tablet 3 09/22/2021 Active Vitamin B-12 100 MCG Oral Tablet (vitamin B-12) TAKE 100 MCG BY MOUTH DAILY. 90 Tablet 3 09/22/2021 Active Ipratropium [place] 0.02 % Inhalation Solution (Atrovent)Indicatio ns:Stage 3 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 ([facility]) Inhale via nebulizer 2.5 mL in the morning AND 2.5 mL at noon AND 2.5 mL before bedtime. Diagnosis code J44.9 Stage 3 Sever COPD by Gold classification [facility]. Diagnosis code J96.11 Chronic Resp [...] Specialty Care Team Description 12/17/2021 Telemedicine Gastroenterology Niseren Jennings CRNP [address] [facility] [place] [address] Health Maintenance Due Date Last Done Comments [...] 10/20/2017 LUNG CANCER SCREENING - USE SMARTSET [id number] Completed 06/23/2017 Pneumococcal Vaccine: 65+ Years Completed 10/20/2017, 04/27/2017 GARDASIL-HPV IMMUNIZATION SERIES Aged Out No longer eligible based on patient's age to complete this topic MENINGOCOCCAL (MENACTRA/MENVEO) Aged Out No longer eligible based on patient's age to complete this topic documented as of this encounter Implants Not on filedocumented as of this encounter Advance Directives Documents on File Type Date Recorded Patient Public Relations Representative Expl anation Advanced Directive service a emelia [...] Directive Advanced Directive Advanced Directive Care Teams Control Tower Operator Relationship Specialty Start Date End Date Kavya Dillard CRNP [address] [facility] [place] [address] PCP - General Nurse Practitioner 12/31/20 documented as of this encounter
--- OUTSIDE RECORDS SUMMARY | 2023-04-08 23:08 | External Medical Summary | Summary of Care ---
Author Name Unknown Organization [place] [address] Care Team Providers Care Residential Glazier Name Role Phone Kavya Dillard Primary Care Provider Reason for Visit * Reason Onset Date Comments Advice 11/04/2021 Encounter Details Date Type Department Care Team Description 11/04/2021 Telephone Family Practice [facility] [address] [facility] [place] [address] Kavya Dillard CRNP [address] [facility] [place] [address] Advice Allergies No known active allergiesdocumented as [...] Brand necessary 54 g 3 08/06/2020 Active Levalbuterol HCl 1.25 MG/3ML Inhalation Nebulization Solution (Xopenex)Indication s:Stage 3 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 ([facility]) INHALE 1 AMPULE VIA NEBULIZER 3 TIMES A DAY. 810 mL 1 03/11/2021 Active oxygen IN GASIndications:Inc to 4LPM with ambulation/exertion 2.5 lpm at rest 3 LPM continuous oxygen with exertion DME: [facility] Indications: Inc to 4LPM with ambulation/exertion 1 Each 0 04/01/2021 Active Folic Acid 1 MG Oral TabletIndications:C hronic respiratory failure with hypoxia, on home O2 therapy ([facility]) TAKE 1 TABLET BY MOUTH [...] Respimat 1.25 MCG/ACT Inhalation Aerosol Solution (Tiotropium [place] Monohydrate) INHALE 2 PUFFS BY MOUTH EVERY DAY 12 g 1 09/20/2021 Active Thiamine HCl 100 MG Oral Tablet (vitamin B-1) TAKE 1 TABLET BY MOUTH EVERY DAY 90 Tablet 3 09/22/2021 Active Vitamin B-12 100 MCG Oral Tablet (vitamin B-12) TAKE 100 MCG BY MOUTH DAILY. 90 Tablet 3 09/22/2021 Active Ipratropium [place] 0.02 % Inhalation Solution (Atrovent)Indicatio ns:Stage 3 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 ([facility]) Inhale via nebulizer 2.5 mL in the morning AND 2.5 mL at noon AND 2.5 mL before bedtime. Diagnosis code J44.9 Stage 3 Sever COPD by Gold classification [facility]. Diagnosis code J96.11 Chronic Resp Failure with hypoxia on home oxygen therapy.. 270 mL 4 09/23/2021 Active Omeprazole 40 MG Oral Capsule Delayed Release (PriLOSEC) TAKE 1 CAPSULE BY MOUTH DAILY. 1 HOUR BEFORE THE FIRST MEAL OF THE DAY 90 Capsule 0 10/17/2021 Active Metoprolol Tartrate 25 MG Oral Tablet (Lopressor) Take by mouth 12.5 mg in the morning AND 12.5 mg before bedtime. 0 09/05/2021 Active Combivent Respimat 20-100 MCG/ACT Inhalation Aerosol Solution Inhale by mouth 1 Puff 4 times a day . As directed 0 10/09/2021 Active Prevalite 4 GM Oral Packet Take [...] capsule daily til gone.. 0 11/04/2021 Active documented as of this encounter (statuses [...] Telephone Encounter - Roseanne Emerson RN - 11/11/2021 2:28 PM EDT Spoke with son He thinks that his dad already has the conserving device and small tanks Called [facility] back and asked for another staff person to assist me -- I asked to review exactly what they supply to patient -- indeed he has the conserving device with the smallest tanks they make. They do not handle portable concentrators anymore because they had too many problems with them. Thank you all for your help. Have a great day! * Telephone Encounter - Roseanne Emerson RN - 11/11/2021 2:05 PM EDT I called [facility] just to make sure I understood everything Patient needs testing from pulmonology for a conserving device so he can get smaller portable tanks Will forward this message to pulm to see if this is something they can do and if not, where do I gofrom here? Thanks! Roseanne [facility] Medical [place] Float Cashier Self Service [place] Care Coordination / * Telephone Encounter - GARRETT Root - 11/09/2021 8:41 PM EDT I am unsure who does the testing. Can you call pulm and find if they can do this? Randy, AMBER, GARRETT [facility] * Telephone Encounter - Kristi Veras LPN - 11/07/2021 4:55 PM EDT See below, I see you did the DME, but sounds like [facility] don't do testing. * Telephone Encounter - JAH Velazquez - 11/06/2021 6:09 PM EDT Patient's son (Daniel) called asking if a nurse could please contact him with regards to the testing for a conserving oxygen device. [facility] cannot do the testing and he wants to know if they should waituntil pt's appt in December or should he be seen sooner. Please return Daniel's call to [phone] to advise. Thank you * Telephone Encounter - JAH Pastrana - 11/06/2021 9:11 AM EDT Manuel from [facility] stated he received an order for a conserving device for oxygen. [facility] unable to test for it. Manuel states the office will have to test the patient for it. Please advise * Telephone Encounter - GARRETT Root - 11/04/2021 2:01 PM EDT Please fax DME order for conserving device to [facility] and confirm receipt. AMBER Padilla, GARRETT [facility] * Telephone Encounter - GARRETT Root - 11/04/2021 2:00 PM EDT ----- Message from Roseanne Emerson RN sent at 11/04/2021 1:23 PM EDT ----- Thanks Kavya! They get their oxygen from [facility]. Let me know if you need anything else. I do work only part-time (M-T-F) and work another job W-R, so contact my contract administration manager Myra Kwame if anything else needed. Have a nice day! Roseanne Cronin, This would need to be ordered through his DME. Who is his DME who supplies oxygen? I can fax to them. AMBER Padilla, GARRETT [facility] ----- Message ----- From: Roseanne Emerson RN Sent: 11/04/2021 10:41 AM EDT To: GARRETT Root, # ----- Message from Roseanne Emerson RN sent at 11/04/2021 10:41 AM EDT ----- Hi Nisreen! Patient's current vanco dose is 125 mg BID til November 08, then taper to once daily til gone Hi Kavya! stated that they are attempting to get portable concentrator. I've had other companies tell methat supply chain issues have created real problems in getting even parts for these. One suggested getting a Resp Therapist eval for a conserving device "to maintain spo2>90%" and that they can then supply little tanks that potentially can last several hours. [facility] is agreeable to looking into this. What do you think? Thank you both and have a wonderful day! Roseanne torre documented in this encounter Plan of Treatment Upcoming Encounters Date Type Specialty Care Team Description 12/09/2021 Office Visit Family Medicine Kavya Dillard CRNP [address] [place] [address] 12/17/2021 Telemedicine Gastroenterology Nisreen Jennings CRNP [address] [place] [address] Health Maintenance Due Date Last Done Comments [...] 10/20/2017 LUNG CANCER SCREENING - USE SMARTSET 24990 Completed 06/23/2017 Pneumococcal Vaccine: 65+ Years Completed [...] hypoxia, on home O2 therapy (HCC)- Primary documented in this encounter Advance Directives Documents on File Type Date Recorded Patient Pre School Manager Expl anation Advanced Directive service a [...] Directive Advanced Directive Advanced Directive Care Teams Residential Glazier Relationship Specialty Start Date End Date Kavya Dillard CRNP [address] [place] [address] PCP - General Nurse Practitioner 12/31/20 documented as of this encounter
--- OUTSIDE RECORDS SUMMARY | 2023-04-08 23:08 | External Medical Summary | Summary of Care ---
Author Name Unknown Organization [place] [address] Care Team Providers Care Network Support Engineer Name Role Phone Kavya Dillard Primary Care Provider Reason for Visit * Reason Comments NEW PATIENT c diff * Evaluate & Treat - Unlimited Visits (Within 10 days (routine)) - Closed Specialty Diagnoses / Procedures Referred By Nicole cisse Referred To Contact Gastroenterology Diagnoses Clostridium difficile colitis Kavya Dillard CRNP [address] [facility] [place] [address] Referral ID Status Reason Start Date Expiration Date V isits Requested Visits Authorized [id number] Closed Specialty Services Required 09/18/2021 1 1 Encounter Details Date Type Department Care Team Description 10/29/2021 Office Visit Gastroenterology, [facility] [address] [place] [address] [facility]isreen Jennings CR[facility] [place] [address] C. difficile colitis* Allergies No known active allergiesdocumented as of this encounter (statuses as of 10/29/2021) Medications Medication Sig Dispensed Refills Start Date [...] 3 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 ([facility]) INHALE 1 AMPULE VIA NEBULIZER 3 TIMES A DAY. 810 mL 1 03/11/2021 Active oxygen IN GASIndications:Inc to 4LPM with ambulation/exertion 2.5 lpm at rest 3 LPM continuous oxygen with exertion DME: [facility] Indications: Inc to 4LPM with ambulation/exertion 1 Each 0 04/01/2021 Active Folic Acid 1 MG Oral TabletIndications:C hronic respiratory failure with hypoxia, on home O2 therapy ([facility]) TAKE 1 TABLET BY MOUTH [...] Brand necessary. 3 Each 3 09/10/2021 Active Vancomycin HCl 125 MG Oral Capsule (Vancocin) Take by mouth 125 mg every 6 hours . 0 Active Spiriva Respimat 1.25 MCG/ACT Inhalation Aerosol Solution (Tiotropium [place] Monohydrate) INHALE 2 PUFFS BY MOUTH EVERY DAY 12 g 1 09/20/2021 Active Thiamine HCl 100 MG Oral Tablet (vitamin B-1) TAKE 1 TABLET BY MOUTH EVERY DAY 90 Tablet 3 09/22/2021 Active Vitamin B-12 100 MCG Oral Tablet (vitamin B-12) TAKE 100 MCG BY MOUTH DAILY. 90 Tablet 3 09/22/2021 Active Ipratropium [place] 0.02 % Inhalation Solution (Atrovent)Indicatio ns:Stage 3 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 ([facility]) Inhale via nebulizer 2.5 mL in the morning AND 2.5 mL at noon AND 2.5 mL before bedtime. Diagnosis code J44.9 Stage 3 Sever COPD by Gold classification [facility]. Diagnosis code J96.11 Chronic Resp [...] the morning. 30 Tablet 3 10/22/2021 Active documented as of this encounter (statuses as of 10/29/2021) Active Problems Problem Noted Date Atrial fibrillation [...] as of this encounter (statuses as of 10/29/2021) Resolved Problems Problem Noted Date Resolved Date [...] as of this encounter (statuses as of 10/29/2021) Immunizations Name Administration Dates Next Due PPD [...] Sign Reading Time Taken Comments Blood Pressure 98/56 10/29/2021 3:02 PM EDT Pulse 100 10/29/2021 3:02 PM EDT Temperature 36.5 C (97.7 F) 10/29/2021 3:02 PM ED T Respiratory Rate - - Oxygen Saturation 98% 10/29/2021 3:02 PM EDT Inhaled Oxygen Concentration - - Weight 48.6 kg (107 lb 3.2 oz) 10/29/2021 3:02 P M EDT Height 167.6 cm (5' 6") 10/29/2021 3:02 PM EDT Body Mass Index 17.3 10/29/2021 3:02 PM EDT documented in this encounter Patient Instructions * Patient Instructions* GARRETT Smith - 10/29/2021 3:17 PM EDT - Avoid unnecessary ABX use - Continue vancomycin - Start Florastor - Hand hygiene with soap and water - Clean bathroom with bleach products GARRETT Colon 10/29/2021 3:18 PM documented in this encounter Progress Notes * GARRETT Smith - 10/29/2021 3:00 PM EDT DATE OF SERVICE: 10/29/2021 REFERRING PHYSICIAN: GARRETT Root CC: c.diff Office Visit 10/29/2021 : 80 year old male with history of COPD, others below who was recently admitted to [facility], was followed my [facility] during admission for c.diff infection. Treated [...] Acute exacerbation of COPD with asthma ([facility]) 04/23/2017 [facility] Arthritis Edentulous Gastroesophageal reflux disease with esophagitis Herpes zoster 01/11/2019 right neck and scalp Inflammation of sacroiliac joint ([facility]) 04/24/2005 Loss of teeth due to trauma, extraction, or periodontal disease Other abnormal glucose 04/23/2005 glucose 156 Other abnormal glucose 02/22/2008 glucose 167 Other disorders of vitreous 12/2000 Posterior vitreous detachment OS Other specified disorders of rotator cuff syndrome of shoulder and allied disorders 05/2004 right shoulder Pneumonia 06/13/2017 left basal infiltrate Pneumonia due to Pseudomonas ([facility]) 05/20/2017 Severe chronic obstructive pulmonary disease ([facility]) 10/28/2016 severe by ATS criteria. significant response after bronchodilator TICK BITE RIGHT FOOT 02/2005 Tobacco use disorder Family History Problem Relation Age of Onset Cancer Sister Cancer Brother Diabetes No significant family history Ear Problems No significant family history Endocrine Disorder No significant family history Eye Problems No significant family history Heart Disorder No significant family history Hypertension No significant family history Lung Disorder No significant family history Renal Hx No [...] REMOVE CATARACT, INSERT LENS PROSTH Right 06/12/2019 [facility] REMOVE CATARACT, INSERT LENS PROSTH Left 06/26/2019 [facility] Social History Tobacco Use Smoking status: Former Smoker Packs/day: 2.00 Years: 59.00 Pack years: 118.00 Types: Cigarettes Start date: 1954 Quit date: 04/07/2016 Years since quittin.5 Smokeless tobacco: Never Used Tobacco comment: started [...] for Wheezing. Brand necessary 54 g 3 Levalbuterol HCl 1.25 MG/3ML Inhalation Nebulization Solution (Xopenex) INHALE 1 AMPULE VIA NEBULIZER 3 TIMES A DAY. 810 mL 1 oxygen IN GAS 2.5 lpm at rest 3 LPM continuous oxygen with exertion DME: [facility] Indications: Inc to 4LPM [...] before bedtime. Brand necessary. 3 Each 3 Vancomycin HCl 125 MG Oral Capsule (Vancocin) Take by mouth 125 mg every 6 hours . Spiriva Respimat 1.25 MCG/ACT Inhalation Aerosol Solution (Tiotropium [place] Monohydrate) INHALE 2 PUFFS BY MOUTH EVERY DAY 12 g 1 Thiamine HCl 100 MG Oral Tablet (vitamin B-1) TAKE 1 TABLET BY MOUTH EVERY DAY 90 Tablet 3 Vitamin B-12 100 MCG Oral Tablet (vitamin B-12) TAKE 100 MCG BY MOUTH DAILY. 90 Tablet 3 Ipratropium [place] 0.02 % Inhalation Solution (Atrovent) Inhale via nebulizer 2.5 mL in the morning AND 2.5 mL at noon AND 2.5 mL before bedtime. Diagnosis code J44.9 Stage 3 Sever COPD by Gold classification [facility]. Diagnosis code J96.11 Chronic Resp Failure with hypoxia on home oxygen therapy..270 mL 4 Omeprazole 40 MG Oral Capsule Delayed Release (PriLOSEC) TAKE 1 CAPSULE BY MOUTH DAILY. 1 HOUR BEFORE THE FIRST MEAL OF THE DAY 90 Capsule 0 Metoprolol Tartrate 25 MG Oral Tablet (Lopressor) Take by mouth 12.5 mg in the morning AND 12.5mg before bedtime. Combivent Respimat 20-100 MCG/ACT Inhalation Aerosol Solution Inhale by mouth 1 Puff 4 times a day . As directed Prevalite 4 GM Oral Packet Take by mouth 4 g daily . Potassium Chloride ER 20 MEQ Oral Tablet Extended Release Take by mouth 1 Tablet in the morning. 30 Tablet 3 No current facility-administered medications for this visit. REVIEW OF SYSTEMS: All other findings negative except as noted in HPI. EXAM: BP 98/56 | Pulse 100 | Temp 36.5 C (97.7 F) | Ht 1.676 m (5' 6") | Wt 48.6 kg (107 lb 3.2 oz) |SpO2 98% | BMI 17.30 kg/m | BSA 1.5 m GENERAL: Well developed and well nourished in no acute distress. SKIN: No rashes, ulcers, jaundice HEENT: Normocephalic, sclera clear, NECK: Supple, no lymphadenopathy, LUNGS: Clear to auscultation bilaterally, no respiratory distress or accessory muscles used. HEART: Regular rate & rhythm, no murmurs and no gallops. ABDOMEN: Normal bowel sounds, soft and nontender, no masses or hepatosplenomegaly. EXTREMITIES: No palmar erythema, no ankle edema, NEURO: No lateralizing findings. Sensory/Motor grossly normal. DIAGNOSTIC TEST: not indicated ASSESSMENT AND PLAN: 80 year old male, recent admission for c.diff infection, presently on Vancomycin 125 BID on a tapering course, clinically improving. Advised to call us when he got home to verifydosing and course of vancomycin and questran - Avoid unnecessary ABX use - Continue tapering of vancomycin - Start Florastor - Hand hygiene with soap and water - Clean bathroom with bleach products - Colonoscopy discussed, presently defers this - ED for emergencies - Please call with any questions or concerns I spent a total of 25 minutes on the date of service in review of patient's record, and previously obtained information in person and appropriate medical visit, discussion and education of plan, withpatient and/or caregiver, placing orders for tests/referral/procedures as medically necessary and documentation of pertinent clinical information in patient's medical records for their visit today. RETURN TO CLINIC: 1 month GARRETT Colon 10/29/2021 3:15 PM documented in this encounter Nursing Notes * Elva Oliveira LPN - 10/29/2021 3:04 PM EDT Patient identified by name and date of . Chief Complaint Patient presents with NEW PATIENT c diff Pt has been dealing with the c diff for a few months now. When asked about cleaning - they were using lysal wipes - not bleach. documented in this encounter Plan of Treatment Upcoming Encounters Date Type Specialty Care Team Description 12/09/2021 Office Visit Family Medicine Kavya Dlilard CRNP [address] [place] [address] 12/17/2021 Telemedicine Gastroenterology Nisreen Jennings CRNP [address] [place] [address] Scheduled Referrals Name Type Priority Associated Diagnoses Order Schedule GASTROENTEROLOGY REFERRAL OP Referral Within 10 days (routine) Clostridium difficile colitis Ordered: 09/18/2021 Health Maintenance Due Date Last Done Comments Zoster Vaccines (1 of 2) 1992 *ADVANCE DIRECTIVE NOT ON FILE 09/25/2020 Depression Screening, Annual for Pts 12 and Over 11/12/2020 11/13/2019 COVID-19 Vaccine (3 - Booster for Moderna series) 06/26/2021 01/24/2021, 10/07/2020 O2 ASSESSMENT COMPLETED IN PAST YEAR FOR COPD 10/21/2022 10/21/2021 DIABETES SCREEN EVERY 3 YRS-AGE 45 AND ABOVE 10/10/2024 10/10/2021, 09/18/2021, 09/10/2021, Additional history exists DTaP,Tdap,and Td Vaccines (2 - Td or Tdap) 10/21/2027 10/20/2017 LUNG CANCER SCREENING - USE SMARTSET 53450 Completed 06/23/2017 Pneumococcal Vaccine: 65+ Years Completed [...] Documents on File Type Date Recorded Patient Chief Steward/Stewardess Expl anation Advanced Directive service a emelia [...] Directive Advanced Directive Advanced Directive Care Teams Network Support Engineer Relationship Specialty Start Date End Date Kavya Dillard CRNP [address] [place] [address] PCP - General Nurse Practitioner 12/31/20 documented as of this encounter
--- OUTSIDE RECORDS SUMMARY | 2023-04-08 23:08 | External Medical Summary | Summary of Care ---
Author Name Unknown Organization [place] [address] Care Team Providers Care Refrigeration Service Inspector Name Role Phone Kavya Dillard GARRETT Primary Care Provider Reason for Visit * Reason Onset Date Comments Referral 10/24/2021 Encounter Details Date Type Department Care Team Description 10/24/2021 Telephone Urology Juwan Zheng [address] [place] [id number] [address], Jose Miguel Mitchell PA-C [address] [place] [id number] Referral Allergies No known active allergiesdocumented as of this encounter (statuses as of 10/28/2021) Medications Medication Sig Dispensed Refills Start Date [facility] Ind[facility]: Inc to 4LPM with ambulation/exertion [...] Respimat 1.25 MCG/ACT Inhalation Aerosol Solution (Tiotropium [place] Monohydrate) INHALE 2 PUFFS BY MOUTH EVERY DAY 12 g 1 09/20/2021 Active Thiamine HCl 100 MG Oral Tablet (vitamin B-1) TAKE 1 TABLET BY MOUTH EVERY DAY 90 Tablet 3 09/22/2021 Active Vitamin B-12 100 MCG Oral Tablet (vitamin B-12) TAKE 100 MCG BY MOUTH DAILY. 90 Tablet 3 09/22/2021 Active Ipratropium [place] 0.02 % Inhalation Solution (Atrovent)Indicatio ns:Stage 3 [...] as of this encounter (statuses as of 10/28/2021) Active Problems Problem Noted Date Atrial fibrillation [...] as of this encounter (statuses as of 10/28/2021) Resolved Problems Problem Noted Date Resolved Date [...] as of this encounter (statuses as of 10/28/2021) Immunizations Name Administration Dates Next Due PPD [...] Miscellaneous Notes * Telephone Encounter - DEBBIE Green - 10/24/2021 9:08 AM EDT Lm on son's # to call back to schedule appt. Pt has referral. 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
--- OUTSIDE RECORDS SUMMARY | 2023-04-08 23:08 | External Medical Summary | Summary of Care ---
Author Name Unknown Organization [place] [address] Care Team Providers Care Dry Pan Operator Name Role Phone Kavya Dillard Primary Care Provider Encounter Details Date Type Department Care Team Description 12/05/2021 Scan Encounter Family [facility] [address] [facility] [place] [address] Kavya Dillard CRNP [address] [facility] [place] [address] <No scans attached> Allergies No known active [...] LPM continuous oxygen with exertion DME: [facility] Indications: Inc to 4LPM with ambulation/exertion 1 Each 0 04/01/2021 Active Folic Acid 1 MG Oral TabletIndications:C hronic respiratory failure with hypoxia, on home O2 therapy ([facility]) TAKE 1 TABLET BY MOUTH EVERY [...] Respimat 1.25 MCG/ACT Inhalation Aerosol Solution (Tiotropium [place] Monohydrate) INHALE 2 PUFFS BY MOUTH EVERY DAY 12 g 1 09/20/2021 Active Thiamine HCl 100 MG Oral Tablet (vitamin B-1) TAKE 1 TABLET BY MOUTH EVERY DAY 90 Tablet 3 09/22/2021 Active Vitamin B-12 100 MCG Oral Tablet (vitamin B-12) TAKE 100 MCG BY MOUTH DAILY. 90 Tablet 3 09/22/2021 Active Ipratropium [place] 0.02 % Inhalation Solution (Atrovent)Indicatio ns:Stage 3 [...] 12/17/2021 Telemedicine Gastroenterology Nisreen Jennings CRNP [address] [facility] [place] [address] Health Maintenance Due Date Last Done Comments [...] 10/20/2017 LUNG CANCER SCREENING - USE SMARTSET 11720 Completed 06/23/2017 Pneumococcal Vaccine: 65+ Years Completed 10/20/2017, 04/27/2017 GARDASIL-HPV IMMUNIZATION SERIES Aged Out No longer eligible based on patient's age to complete this topic MENINGOCOCCAL (MENACTRA/MENVEO) Aged Out No longer eligible based on patient's age to complete this topic documented as of this encounter Implants Not on filedocumented as of this encounter Advance Directives Documents on File Type Date Recorded Patient Real Property Evaluator Expl anation Advanced Directive service a emelia [...] Directive Advanced Directive Advanced Directive Care Teams Dry Pan Operator Relationship Specialty Start Date End Date Kavya Dillard CRNP [address] [facility] [place] [address] PCP - General Nurse Practitioner 12/31/20 documented as of this encounter
--- OUTSIDE RECORDS SUMMARY | 2023-04-08 23:08 | External Medical Summary | Summary of Care ---
Author Name Unknown Organization [place] [address] Care Team Providers Care Analyst Food And Beverage Name Role Phone Kavya Dillard Yoanna TUCKER Primary Care Provider Reason for Visit * Reason Comments Weakness, Generalized increased shortnes s of breath x 2 weeks, sinus issues Encounter Details Date Type Department Care Team Description 2021 Office Visit Family [facility] [address] [facility] [place] [address] Rosalino De La Torre MD [address] [facility] [place] [address] COPD, group D, by GOLD 2017 classification ([facility])*; Oxygen dependent; Fibrosis of lung (HCC); Chronic respiratory failure with hypoxia, on home O2 therapy (HCC); Pulmonary HTN (HCC) Allergies No known active allergiesdocumented as of this encounter (statuses as of 12/08/2021) Medications Medication Sig Dispensed Refills Start Date [...] Brand necessary 54 g 3 1 Active oxygen IN GASIndications:Inc to 4LPM with ambulation/exertion 2.5 lpm at rest 3 LPM continuous oxygen with exertion DME: [facility] Indications: Inc to 4LPM with ambulation/exertio n 1 Each 0 1 Active Folic Acid 1 MG Oral TabletIndications:C hronic respiratory failure with hypoxia, on home O2 therapy ([facility]) TAKE 1 TABLET BY MOUTH EVERY DAY 90 Tablet 2 1 Active Roflumilast 500 MCG Oral Tablet [...] Respimat 1.25 MCG/ACT Inhalation Aerosol Solution (Tiotropium [place] Monohydrate) INHALE 2 PUFFS BY MOUTH EVERY DAY 12 g 1 2 Active Thiamine HCl 100 MG Oral Tablet (vitamin B-1) TAKE 1 TABLET BY MOUTH EVERY DAY 90 Tablet 3 2 Active Vitamin B-12 100 MCG Oral Tablet (vitamin B-12) TAKE 100 MCG BY MOUTH DAILY. 90 Tablet 3 2 Active Ipratropium [place] 0.02 % Inhalation Solution (Atrovent)Indicatio ns:Stage 3 [...] home oxygen therapy.. 270 mL 4 2 Active Omeprazole 40 MG Oral Capsule Delayed Release (PriLOSEC) TAKE 1 CAPSULE BY MOUTH DAILY. 1 HOUR BEFORE THE FIRST MEAL OF THE DAY 90 Capsule 0 2 Active Prevalite 4 GM Oral Packet Take by mouth 4 g daily . 0 2 Active Potassium Chloride ER 20 MEQ Oral Tablet Extended Release Take by mouth 1 Tablet in the morning. 30 Tablet 3 2 Active Vancomycin HCl 125 MG Oral Capsule (Vancocin) Take by mouth 1 Capsule in the morning AND 1 Capsule before bedtime. Until November 08, then taper to one capsule daily til gone.. 0 2 Active Levalbuterol HCl 1.25 MG/3ML Inhalation Nebulization Solution (Xopenex)Indication s:Stage 3 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 ([facility]) INHALE 1 AMPULE VIA NEBULIZER 3 TIMES A DAY. 810 mL 2 2 Active Metoprolol Tartrate 25 MG Oral Tablet (Lopressor) Take by mouth 12.5 mg in the morning AND 12.5 mg before bedtime. 0 2 11/27/19 22 Discontinu ed(Medicat ion List Clean Up) Combivent Respimat 20-100 MCG/ACT Inhalation Aerosol Solution Inhale by mouth 1 Puff 4 times a day . As directed 0 2 11/27/19 Discontinu ed(Medicat ion List Clean Up) documented as of this encounter (statuses as of 12/08/2021) Active Problems Problem Noted Date Atrial fibrillation [...] as of this encounter (statuses as of 12/08/2021) Resolved Problems Problem Noted Date Resolved Date [...] as of this encounter (statuses as of 12/08/2021) Immunizations Name Administration Dates Next Due PPD [...] Reading Time Taken Comments Blood Pressure 92/60 2021 3:08 PM EDT Pulse 88 2021 3:08 PM EDT Temperature 36.7 C (98 F) 2021 3:08 PM EDT Respiratory Rate 20 2021 3:08 PM EDT Oxygen Saturation 97% 2021 3:08 PM EDT Inhaled Oxygen Concentration - - Weight - - Height - - Body Mass Index - - documented in this encounter Progress Notes * Rosalino De La Torre MD - 12/08/2021 11:01 PM EDT SUBJECTIVE: Jer Abreu Jr. is a 81 year old male here for Weakness, Generalized (increased shortness of breath x 2 weeks, sinus issues ) . Here w/son Hx resp failure on O2 NC 28/12. Slight inc weakness, can x2 weeks. No fever, chills, chest pain, shortness of breath, headache, nausea, vomit, diarrhea, constipation or vision changes Some mild sinus lourdes Physical: BP 92/60 | Pulse 88 | Temp 36.7 C (98 F) | Resp 20 | SpO2 97% On O2 General-No apparent Distress in wheelchair, Head, Eyes, Ears, Nose, Throat--Normocephalic, atraumatic Nares clear Neck-Supple Lymph-no lymphadenopathy Lungs-Clear to Auscultation bilaterally Cardiovascular--Regular rate & Rhythm, +s1, s2, no murmur Abdomen-soft, nontender, nondistended + bowel sounds Extremities--no edema Neuro-alert & oriented x3 (J44.9) COPD, group D, by GOLD 2017 classification ([facility]) (primary encounter diagnosis) Plan: vitals good today, appears comfortable No sign of acute illness F/u pulm /PCP as sched, sooner prn (Z99.81) Oxygen dependent Plan: cont mgmt (J84.10) Fibrosis of lung (HCC) Plan: contm gmt (J96.11, Z99.81) Chronic respiratory failure with hypoxia, on home O2 therapy (HCC) Plan: cont mgmt (I27.20) Pulmonary HTN (HCC) Plan: cont mgmt (This note was completed using the dictation program Fluency Direct. As such, there may be misspellings, word substitutions, or other variations that should not change the essence of the clinical content of this encounter note.If there is need for further clarification, please direct questions to the provider listed above.) Rosalino De La Torre MD documented in this encounter Nursing Notes * Jackelyn Charlton LPN - 2021 3:11 PM EDT The patient has been properly identified by confirmation of name and date of . Chief Complaint Patient presents with Weakness, Generalized increased shortness of breath x 2 weeks, sinus issues documented in this encounter Plan of Treatment Upcoming Encounters Date Type Specialty Care Team Description 12/17/2021 Telemedicine Gastroenterology Nisreen Jennings CRNP [address] [facility] [place] [address] Health Maintenance Due Date Last Done Comments [...] 10/20/2017 LUNG CANCER SCREENING - USE SMARTSET [id number] Completed 06/23/2017 Pneumococcal Vaccine: 65+ Years Completed [...] D, by GOLD 2017 classification (HCC)- Primary Oxygen dependent Dependence on supplemental oxygen 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
--- OUTSIDE RECORDS SUMMARY | 2023-04-08 23:08 | External Medical Summary | Summary of Care ---
Author Name Unknown Organization [place] [address] Care Team Providers Care Commanding Officer Homicide Squad Name Role Phone Dorischelsey Kavya TUCKER Primary Care Provider Encounter Details Date Type Department Care Team Description 12/09/2021 Scan Encounter Infectious Disease, [place] [address] [place] [address] Rigoberto Agee II, [address] [place] [address] <No scans attached> Allergies No known active [...] LPM continuous oxygen with exertion DME: [facility] Indications: Inc to 4LPM with ambulation/exertion 1 Each 0 04/01/2021 Active Folic Acid 1 MG Oral TabletIndications:C hronic respiratory failure with hypoxia, on home O2 therapy ([facility]) TAKE 1 TABLET BY MOUTH EVERY [...] Respimat 1.25 MCG/ACT Inhalation Aerosol Solution (Tiotropium [place] Monohydrate) INHALE 2 PUFFS BY MOUTH EVERY DAY 12 g 1 09/20/2021 Active Thiamine HCl 100 MG Oral Tablet (vitamin B-1) TAKE 1 TABLET BY MOUTH EVERY DAY 90 Tablet 3 09/22/2021 Active Vitamin B-12 100 MCG Oral Tablet (vitamin B-12) TAKE 100 MCG BY MOUTH DAILY. 90 Tablet 3 09/22/2021 Active Ipratropium [place] 0.02 % Inhalation Solution (Atrovent)Indicatio ns:Stage 3 [...] Nisreen Jennings CRNP [address] [place] [address] Health Maintenance Due Date Last Done Comments [...] 10/20/2017 LUNG CANCER SCREENING - USE SMARTSET [id number] Completed 06/23/2017 Pneumococcal Vaccine: 65+ Years Completed 10/20/2017, 04/27/2017 GARDASIL-HPV IMMUNIZATION SERIES Aged Out No longer eligible based on patient's age to complete this topic MENINGOCOCCAL (MENACTRA/MENVEO) Aged Out No longer eligible based on patient's age to complete this topic documented as of this encounter Implants Not on filedocumented as of this encounter Advance Directives Documents on File Type Date 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
--- OUTSIDE RECORDS SUMMARY | 2023-04-08 23:08 | External Medical Summary | Summary of Care ---
Author Name Unknown Organization [place] [address] Care Team Providers Care Cook Apprentice Pastry Name Role Phone Kavya Dillard Yoanna TUCKER Primary Care Provider Reason for Visit * Reason Onset Date Comments case management 11/20/2021 Encounter Details Date Type Department Care Team Description 11/20/2021 Equipment Superintendent Telephone Care Coordination [address] [place], [place] [id number] Rahel Akhtar, product management consultant Allergies No known active allergiesdocumented as of this encounter (statuses as of 11/20/2021) Medications Medication Sig Dispensed Refills Start Date [...] Hospital Center Indications: Inc to 4LPM with ambulation/exertion 1 Each 0 04/01/2021 Active Folic Acid 1 MG Oral TabletIndications:C hronic respiratory failure with hypoxia, on home O2 therapy ([facility]) TAKE 1 TABLET BY MOUTH [...] Respimat 1.25 MCG/ACT Inhalation Aerosol Solution (Tiotropium [place] Monohydrate) INHALE 2 PUFFS BY MOUTH EVERY DAY 12 g 1 09/20/2021 Active Thiamine HCl 100 MG Oral Tablet (vitamin B-1) TAKE 1 TABLET BY MOUTH EVERY DAY 90 Tablet 3 09/22/2021 Active Vitamin B-12 100 MCG Oral Tablet (vitamin B-12) TAKE 100 MCG BY MOUTH DAILY. 90 Tablet 3 09/22/2021 Active Ipratropium [place] 0.02 % Inhalation Solution (Atrovent)Indicatio ns:Stage 3 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 ([facility]) Inhale via nebulizer 2.5 mL in the morning AND 2.5 mL at noon AND 2.5 mL before bedtime. Diagnosis code J44.9 Stage 3 Sever COPD by Gold classification [facility]. Diagnosis code J96.11 Chronic Resp [...] as of this encounter (statuses as of 11/20/2021) Active Problems Problem Noted Date Atrial fibrillation [...] as of this encounter (statuses as of 11/20/2021) Resolved Problems Problem Noted Date Resolved Date [...] as of this encounter (statuses as of 11/20/2021) Immunizations Name Administration Dates Next Due PPD [...] Telephone Encounter - Rahel Akhtar RN - 11/20/2021 9:22 AM EDT 1. Follow-up Routine 2. Attempted Phone Call First Attempt 3. Call Unanswered Left Voicemail 4. Plan To attempt Follow-up Rahel Akhtar RNvideo game designer [phone] documented in this encounter Plan of Treatment Upcoming Encounters Date Type Specialty Care Team Description 12/09/2021 Office Visit Family Medicine Kavya Dillard CRNP [address] [place] [address] 12/17/2021 Telemedicine Gastroenterology Nisreen Jennings CRNP [address] [place] [address] Health Maintenance Due Date Last Done Comments [...] 10/20/2017 LUNG CANCER SCREENING - USE SMARTSET [id number] Completed 06/23/2017 Pneumococcal Vaccine: 65+ Years Completed [...] Documents on File Type Date Recorded Patient Control Inspector Expl anation Advanced Directive service a emelia [...] Directive Advanced Directive Advanced Directive Care Teams Cook Apprentice Pastry Relationship Specialty Start Date End Date Kavya Dillard CRNP [address] [facility] [place] [address] PCP - General Nurse Practitioner 12/31/20 documented as of this encounter
--- OUTSIDE RECORDS SUMMARY | 2023-04-08 23:08 | External Medical Summary | Summary of Care ---
Author Name Unknown Organization [place] [address] Care Team Providers Care Water Engineer Name Role Phone Kavya Dillard Yoanna TUCKER Primary Care Provider Reason for Visit * Reason Onset Date Comments case management 12/05/2021 Encounter Details Date Type Department Care Team Description 12/05/2021 Partition Setter Telephone Care Coordination [address] [place] [address] Rahel Akhtar, head of talent management Allergies No known active allergiesdocumented as of this encounter (statuses as of 12/05/2021) Medications Medication Sig Dispensed Refills Start Date [...] hypoxia, on home O2 therapy ([facility]) TAKE 1 TABLET BY MOUTH [...] Respimat 1.25 MCG/ACT Inhalation Aerosol Solution (Tiotropium [place] Monohydrate) INHALE 2 PUFFS BY MOUTH EVERY DAY 12 g 1 09/20/2021 Active Thiamine HCl 100 MG Oral Tablet (vitamin B-1) TAKE 1 TABLET BY MOUTH EVERY DAY 90 Tablet 3 09/22/2021 Active Vitamin B-12 100 MCG Oral Tablet (vitamin B-12) TAKE 100 MCG BY MOUTH DAILY. 90 Tablet 3 09/22/2021 Active Ipratropium [place] 0.02 % Inhalation Solution (Atrovent)Indicatio ns:Stage 3 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 ([facility]) Inhale via nebulizer 2.5 mL in the morning AND 2.5 mL at noon AND 2.5 mL before bedtime. Diagnosis code J44.9 Stage 3 Sever COPD by Gold classification [facility]. Diagnosis code J96.11 Chronic Resp [...] as of this encounter (statuses as of 12/05/2021) Active Problems Problem Noted Date Atrial fibrillation [...] as of this encounter (statuses as of 12/05/2021) Resolved Problems Problem Noted Date Resolved Date [...] as of this encounter (statuses as of 12/05/2021) Immunizations Name Administration Dates Next Due PPD [...] Telephone Encounter - Rahel Akhtar RN - 12/05/2021 12:23 PM EDT Received call from patient's , Violeta. His son is taking him to the ER. He has had increased diarrhea- going every hour for the last few days. He is not eating or drinking much. Getting weaker. Taking Prevalite in Gatorade. Refused wanting to be seen in the office. Patient had 2 recent admissions. Briefly discussed G@H and will discuss again next week Rahel Akhtar RNgallery intern [phone] documented in this encounter Plan of Treatment Upcoming Encounters Date Type Specialty Care Team Description 12/09/2021 Office Visit Family Medicine Kavya Dillard CRNP [address] [place] [address] 12/17/2021 Telemedicine Gastroenterology Nisreen Jennings CRNP [address] [place] [address] Health Maintenance Due Date Last Done Comments [...] 10/20/2017 LUNG CANCER SCREENING - USE SMARTSET 41663 Completed 06/23/2017 Pneumococcal Vaccine: 65+ Years Completed 10/20/2017, 04/27/2017 GARDASIL-HPV IMMUNIZATION SERIES Aged Out No longer eligible based on patient's age to complete this topic MENINGOCOCCAL (MENACTRA/MENVEO) Aged Out No longer eligible based on patient's age to complete this topic documented as of this encounter Implants Not on filedocumented as of this encounter Advance Directives Documents on File Type Date Recorded 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
--- OUTSIDE RECORDS SUMMARY | 2023-04-08 23:08 | External Medical Summary | Summary of Care ---
Author Name Unknown Organization [place] [address] Care Team Providers Care Puffer Tender Name Role Phone Gilma Kavya TUCKER Primary Care Provider Reason for Visit * Reason Onset Date Comments case management 11/21/[address] [facility] #2, follow u p urinary sxs Encounter Details Date Type Department Care Team Description 11/21/2021 Director Agency & Strategic Partnerships Telephone Care Coordination [address] [place] [address] Roseanne Emerson, RN [address] [place] [address] case management ([place] #2, follow up urinary... Allergies No known active allergiesdocumented as of this encounter (statuses as of 11/21/2021) Medications Medication Sig Dispensed Refills Start Date [...] LPM continuous oxygen with exertion DME: [facility] Indications: Inc to 4LPM with [...] Respimat 1.25 MCG/ACT Inhalation Aerosol Solution (Tiotropium [place] Monohydrate) INHALE 2 PUFFS BY MOUTH EVERY DAY 12 g 1 09/20/2021 Active Thiamine HCl 100 MG Oral Tablet (vitamin B-1) TAKE 1 TABLET BY MOUTH EVERY DAY 90 Tablet 3 09/22/2021 Active Vitamin B-12 100 MCG Oral Tablet (vitamin B-12) TAKE 100 MCG BY MOUTH DAILY. 90 Tablet 3 09/22/2021 Active Ipratropium [place] 0.02 % Inhalation Solution (Atrovent)Indicatio ns:Stage 3 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 ([facility]) Inhale via nebulizer 2.5 mL in the morning AND 2.5 mL at noon AND 2.5 mL before bedtime. 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 Diagnosis code J96.11 Chronic Resp [...] 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 ([facility]) INHALE 1 AMPULE VIA NEBULIZER 3 TIMES A DAY. 810 mL 2 11/19/2021 Active documented as of this encounter (statuses as of 11/21/2021) Active Problems Problem Noted Date Atrial fibrillation [...] as of this encounter (statuses as of 11/21/2021) Resolved Problems Problem Noted Date Resolved Date [...] as of this encounter (statuses as of 11/21/2021) Immunizations Name Administration Dates Next Due PPD [...] Telephone Encounter - Roseanne Emerson RN - 11/21/2021 11:43 AM EDT Phone call to patient/son to follow up on urinary symptoms Order labs and/or schedule appt if necessary No answer, TRC to office Roseanne TUCKER [facility] Medical Home Float Director Agency & Strategic Partnerships Care Coordination / 1. Follow-up Routine 2. Attempted Phone Call Second Attempt 3. Call Unanswered Left Voicemail 4. 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
--- OUTSIDE RECORDS SUMMARY | 2023-04-08 23:08 | External Medical Summary | Summary of Care ---
Author Name Unknown Organization [place] [address] Care Team Providers Care Log Peeler Name Role Phone Kavya Dillard Primary Care Provider Reason for Visit * Reason Onset Date Comments Advice 11/04/2021 Encounter Details Date Type Department Care Team Description 11/04/2021 Telephone [facility] [place] [address] Kavya Dillard CRNP [address] [place] [address] Advice Allergies No known active allergiesdocumented as [...] COPD by GOLD classification ([facility]) INHALE 1 AMPULE VIA NEBULIZER 3 TIMES A DAY. 810 mL 1 03/11/2021 Active oxygen IN GASIndications:Inc to 4LPM with ambulation/exertion 2.5 lpm at rest 3 LPM continuous oxygen with exertion DME: [facility] Indications: Inc to 4LPM with ambulation/exertion 1 Each 0 04/01/2021 Active Folic Acid 1 MG Oral TabletIndications:C hronic respiratory failure with hypoxia, on home O2 therapy ([facility]) TAKE 1 TABLET BY MOUTH [...] Respimat 1.25 MCG/ACT Inhalation Aerosol Solution (Tiotropium [place] Monohydrate) INHALE 2 PUFFS BY MOUTH EVERY DAY 12 g 1 09/20/2021 Active Thiamine HCl 100 MG Oral Tablet (vitamin B-1) TAKE 1 TABLET BY MOUTH EVERY DAY 90 Tablet 3 09/22/2021 Active Vitamin B-12 100 MCG Oral Tablet (vitamin B-12) TAKE 100 MCG BY MOUTH DAILY. 90 Tablet 3 09/22/2021 Active Ipratropium [place] 0.02 % Inhalation Solution (Atrovent)Indicatio ns:Stage 3 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 ([facility]) Inhale via nebulizer 2.5 mL in the morning AND 2.5 mL at noon AND 2.5 mL before bedtime. Diagnosis code J44.9 Stage 3 Sever COPD by Gold classification [facility]. Diagnosis code J96.11 Chronic Resp [...] do I gofrom here? Thanks! Roseanne TUCKER [facility] Medical [place] Float Mixing And Molding Machine Operator Care Coordination / * Telephone Encounter - GARRETT Root - 11/09/2021 8:41 PM EDT I am unsure who does the testing. Can you call pulm and find if they can do this? Randy, AMBER, GARRETT [facility] * Telephone Encounter - Kristi Veras LPN [...] seen sooner. Please return Daniel's call to [phone] to advise. Thank you * Telephone Encounter [...] Jon and confirm receipt. AMBER Padilla, GARRETT [facility] * Telephone Encounter - GARRETT Root - 11/04/2021 2:00 PM EDT ----- Message from Roseanne Emerson RN sent at 11/04/2021 1:23 PM EDT ----- Thanks Kavya! They get their oxygen from [employer]. Let me know if you need anything else. I do work only part-time (M-T-F) and work another job W-R, so contact my manager commodities Myra Kwame if anything else needed. Have a nice day! Roseanne Cronin, This would need to be ordered through his DME. Who is his DME who supplies oxygen? I can fax to them. 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
--- OUTSIDE RECORDS SUMMARY | 2023-04-08 23:08 | External Medical Summary | Summary of Care ---
Author Name Unknown Organization [place] [address] Care Team Providers Care Collision Center Manager Name Role Phone Kavya Dillard Yoanna TUCKER Primary Care Provider Reason for Visit * Reason Onset Date Comments case management 12/03/2021 Encounter Details Date Type Department Care Team Description 12/03/2021 Card Game Operator Telephone Care Coordination [address] [place], [place] [id number] Rahel Akhtar, cash management clerk Allergies No known active allergiesdocumented as of this encounter (statuses as of 12/03/2021) Medications Medication Sig Dispensed Refills Start Date [...] [facility] Ind[facility]: Inc to 4LPM with ambulation/exertion 1 Each 0 04/01/2021 Active Folic Acid 1 MG Oral TabletIndications:C hronic respiratory failure with hypoxia, on home O2 therapy ([facility]) TAKE 1 TABLET BY MOUTH EVERY DAY [...] Respimat 1.25 MCG/ACT Inhalation Aerosol Solution (Tiotropium [place] Monohydrate) INHALE 2 PUFFS BY MOUTH EVERY DAY 12 g 1 09/20/2021 Active Thiamine HCl 100 MG Oral Tablet (vitamin B-1) TAKE 1 TABLET BY MOUTH EVERY DAY 90 Tablet 3 09/22/2021 Active Vitamin B-12 100 MCG Oral Tablet (vitamin B-12) TAKE 100 MCG BY MOUTH DAILY. 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 Diagnosis code J44.9 Stage 3 Sever COPD by Gold classification [facility]. Diagnosis code J96.11 Chronic Resp Failure with [...] COPD by GOLD classification ([facility]) INHALE 1 AMPULE VIA NEBULIZER 3 TIMES A DAY. 810 mL 2 11/19/2021 Active documented as of this encounter (statuses as of 12/03/2021) Active Problems Problem Noted Date Atrial fibrillation [...] as of this encounter (statuses as of 12/03/2021) Resolved Problems Problem Noted Date Resolved Date [...] as of this encounter (statuses as of 12/03/2021) Immunizations Name Administration Dates Next Due PPD [...] Telephone Encounter - Rahel Akhtar RN - 12/03/2021 9:01 AM EDT 1. Follow-up Routine 2. Attempted Phone Call Third Attempt 3. Call Unanswered Left Voicemail 4. Plan will close if no response Rahel Akhtar RNlicensed mortgage loan officer [phone] documented in this encounter Plan of Treatment Upcoming Encounters Date Type Specialty Care Team Description 12/09/2021 Office Visit Family Medicine Kavya Dillard CRNP [address] [facility] [place] [address] 12/17/2021 Telemedicine Gastroenterology Nisreen Jennings CRNP [address] [place] [address] Health Maintenance Due Date Last Done Comments [...] 10/20/2017 LUNG CANCER SCREENING - USE SMARTSET [id number] Completed 06/23/2017 Pneumococcal Vaccine: 65+ Years Completed [...] Documents on File Type Date Recorded Patient Story Writer Expl anation Advanced Directive service a emelia [...] Directive Advanced Directive Advanced Directive Care Teams Collision Center Manager Relationship Specialty Start Date End Date Kavya Dillard CRNP [address] [facility] [place] [address] PCP - General Nurse Practitioner 12/31/20 documented as of this encounter
--- OUTSIDE RECORDS SUMMARY | 2023-04-08 23:08 | External Medical Summary | Summary of Care ---
Author Name Unknown Organization [place] [address] Care Team Providers Care Electrical Instrument Technician Name Role Phone Kavya Dillard Primary Care Provider Reason for Visit * Reason Onset Date Comments Health Maintenance 11/20/2021 Encounter Details Date Type Department Care Team Description 11/20/2021 Telephone Family Practice [facility] [address] [facility] [place] [address] Kavya Dillard CRNP [address] [facility] [place] [address] Health Maintenance Allergies No known active allergiesdocumented as [...] 3 LPM continuous oxygen with exertion DME: [facility] Indications: Inc to [...] Respimat 1.25 MCG/ACT Inhalation Aerosol Solution (Tiotropium [place] Monohydrate) INHALE 2 PUFFS BY MOUTH EVERY DAY 12 g 1 09/20/2021 Active Thiamine HCl 100 MG Oral Tablet (vitamin B-1) TAKE 1 TABLET BY MOUTH EVERY DAY 90 Tablet 3 09/22/2021 Active Vitamin B-12 100 MCG Oral Tablet (vitamin B-12) TAKE 100 MCG BY MOUTH DAILY. 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) Inhale via nebulizer 2.5 mL in the morning AND 2.5 mL at noon AND 2.5 mL before bedtime. Diagnosis code J44.9 Stage 3 Sever COPD by Gold classification [facility]. 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) INHALE 1 AMPULE VIA NEBULIZER [...] encounter Miscellaneous Notes * Telephone Encounter - Danielle Rodriguez LPN - 11/20/2021 10:45 AM EDT Care Gaps Comprehensive Care Outreach Last Office/Telemedicine Visit: 10/21/2021 (in office), Visit date not found (telemedicine) Last Office/Telemedine Visit Annual Wellness: due Next Office Visit: 12/09/2021 Hemoglobin AIC Results: Lab Results Component Value Date/Time HEMOGLOBIN A1C - [facility] 5.7 08/30/2006 11:56 AM HEMOGLOBIN A1C - [facility] 5.6 07/15/2005 05:06 PM Health Maintenance Topic Date Due Zoster Vaccines (1 of 2) Never done COVID-19 Vaccine (3 - Booster for Moderna series) 06/26/2021 Care Gap Outreach Action Taken: Myportal message sent documented in this encounter Plan of Treatment Upcoming Encounters Date Type Specialty Care Team Description 12/09/2021 Office Visit Family Medicine Kavya Dillard CRNP [address] [place] [address] 12/17/2021 Telemedicine Gastroenterology Nisreen Jennings CRNP [address] [place] [address] Health Maintenance Due Date Last Done Comments [...] 10/20/2017 LUNG CANCER SCREENING - USE SMARTSET [id number] Completed 06/23/2017 Pneumococcal Vaccine: 65+ Years Completed [...] Documents on File Type Date Recorded Patient Clinical Resource Nurse Expl anation Advanced Directive service a emelia [...] Directive Advanced Directive Advanced Directive Care Teams Electrical Instrument Technician Relationship Specialty Start Date End Date Kavya Dillard CRNP [address] [facility] [place] [address] PCP - General Nurse Practitioner 12/31/20 documented as of this encounter
--- OUTSIDE RECORDS SUMMARY | 2023-04-08 23:08 | External Medical Summary | Summary of Care ---
Author Name Unknown Organization [place] [address] Care Team Providers Care Media Marketing Manager Name Role Phone Kavya Jacinto Primary Care Provider Reason for Visit * Reason Onset Date Comments Medication Refill 11/19/2021 Encounter Details Date Type Department Care Team Description 11/19/[address] [facility] [address] [facility] [place] [address] Kavya Jacinto CRNP [address] [place] [address] Stage 3 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 (HCC) Allergies No known active allergiesdocumented as of this encounter (statuses as of 11/19/2021) Medications Medication Sig Dispensed Refills Start Date [...] LPM continuous oxygen with exertion DME: [facility] Indications: Inc to 4LPM with [...] Respimat 1.25 MCG/ACT Inhalation Aerosol Solution (Tiotropium [place] Monohydrate) INHALE 2 PUFFS BY MOUTH EVERY DAY 12 g 1 2 Active Thiamine HCl 100 MG Oral Tablet (vitamin B-1) TAKE 1 TABLET BY MOUTH EVERY DAY 90 Tablet 3 2 Active Vitamin B-12 100 MCG Oral Tablet (vitamin B-12) TAKE 100 MCG BY MOUTH DAILY. 90 Tablet 3 2 Active Ipratropium [place] 0.02 % Inhalation Solution (Atrovent)Indicatio ns:Stage 3 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 ([facility]) Inhale via nebulizer 2.5 mL in the morning AND 2.5 mL at noon AND 2.5 mL before bedtime. Diagnosis code J44.9 Stage 3 Sever COPD by Gold classification [facility]. Diagnosis code J96.11 Chronic Resp Failure with hypoxia on home oxygen therapy.. 270 mL 4 2 Active Omeprazole 40 MG Oral Capsule Delayed Release (PriLOSEC) TAKE 1 CAPSULE BY MOUTH DAILY. 1 HOUR BEFORE THE FIRST MEAL OF THE DAY 90 Capsule 0 2 Active Metoprolol Tartrate 25 MG Oral Tablet (Lopressor) Take by mouth 12.5 mg in the morning AND 12.5 mg before bedtime. 0 2 Active Combivent Respimat 20-100 MCG/ACT Inhalation Aerosol Solution Inhale by mouth 1 Puff 4 times a day . 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 810 mL 2 2 Active Levalbuterol HCl 1.25 MG/3ML Inhalation Nebulization Solution (Xopenex)Indication s:Stage 3 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 ([facility]) INHALE 1 AMPULE VIA NEBULIZER 3 TIMES A DAY. 810 mL 1 1 11/20/19 22 Discontinu ed(Refill) documented as of this encounter (statuses as of 11/19/2021) Active Problems Problem Noted Date Atrial fibrillation [...] as of this encounter (statuses as of 11/19/2021) Resolved Problems Problem Noted Date Resolved Date [...] as of this encounter (statuses as of 11/19/2021) Immunizations Name Administration Dates Next Due PPD [...] encounter Miscellaneous Notes * Telephone Encounter - Rosalino Carrillo [facility] - 11/19/2021 6:02 PM EDT Signed Prescriptions: Disp Refills Levalbuterol HCl 1.25 MG/3ML Inhalation Ne*810 mL 2 Sig: INHALE 1 AMPULE VIA NEBULIZER 3 TIMES A DAY. Authorizing Provider: KAVYA JACINTO Ordering User: ROSALINO CARRILLO * Telephone Encounter - Tuyet Huizar, practicing urologist - 11/19/2021 5:49 PM EDT Did you pend patient's preferred pharmacy and medication before forwarding?yes Pharmacy: [id number] [address] [place] [address] Pt is out of medication Pending Prescriptions: Disp Refills Levalbuterol HCl 1.25 MG/3ML Inhalation N*810 mL 1 Last Visit: 10/21/2021 (in office), Visit date not found (telemedicine) Next Visit: 12/09/2021 If no future appointments scheduled, and last appointment is greater than a year ago, please schedule patient for a follow-up appointment Last date the medication was ordered: 03/11/2021 Is this request for a controlled substance?No [...] Description 12/09/2021 Office Visit Family Medicine Kavya Jacinto CRNP [address] [place] [address] 12/17/2021 Telemedicine Gastroenterology Nisreen Jennings CRNP [address] [place] [address] Health Maintenance Due Date Last Done Comments [...] 10/20/2017 LUNG CANCER SCREENING - USE SMARTSET 64340 Completed 06/23/2017 Pneumococcal Vaccine: 65+ Years Completed [...] GOLD classification (HCC) documented in this encounter Advance Directives Documents on File Type Date Recorded Patient Associate Property Manager Expl anation Advanced Directive service a [...] Directive Advanced Directive Advanced Directive Care Teams Media Marketing Manager Relationship Specialty Start Date End Date Kavya Jacinto CRNP [address] [facility] [place] [address] PCP - General Nurse Practitioner 12/31/20 documented as of this encounter
--- OUTSIDE RECORDS SUMMARY | 2023-04-08 23:08 | External Medical Summary | Summary of Care ---
Author Name Unknown Organization [place] [address] Care Team Providers Care Director Appointment Name Role Phone Gilma Kavya Yoanna TUCKER Primary Care Provider Reason for Visit * Reason Onset Date Comments case management 11/11/2021 Week #4 post hos p dc f/u Encounter Details Date Type Department Care Team Description 11/11/2021 School Community Relations Coordinator Telephone Care Coordination [address] [facility] [place], [place] [id number] Roseanne Emerson, RN [address] [place] [address] case management (Week #4 post hosp dc f/u) Allergies No known active [...] s:Stage 3 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 ([facility]) INHALE 1 AMPULE VIA NEBULIZER 3 TIMES A DAY. 810 mL 1 03/11/2021 Active oxygen IN GASIndications:Inc to 4LPM with ambulation/exertion 2.5 lpm at rest 3 LPM continuous oxygen with exertion DME: [facility] Indications: Inc to 4LPM with ambulation/exertion 1 Each 0 04/01/2021 Active Folic Acid 1 MG Oral TabletIndications:C hronic respiratory failure with hypoxia, on home O2 therapy ([facility]) TAKE 1 TABLET BY MOUTH [...] Respimat 1.25 MCG/ACT Inhalation Aerosol Solution (Tiotropium [place] Monohydrate) INHALE 2 PUFFS BY MOUTH EVERY DAY 12 g 1 09/20/2021 Active Thiamine HCl 100 MG Oral Tablet (vitamin B-1) TAKE 1 TABLET BY MOUTH EVERY DAY 90 Tablet 3 09/22/2021 Active Vitamin B-12 100 MCG Oral Tablet (vitamin B-12) TAKE 100 MCG BY MOUTH DAILY. 90 Tablet 3 09/22/2021 Active Ipratropium [place] 0.02 % Inhalation Solution (Atrovent)Indicatio ns:Stage 3 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 ([facility]) Inhale via nebulizer 2.5 mL in the morning AND 2.5 mL at noon AND 2.5 mL before bedtime. 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 Diagnosis code J96.11 Chronic Resp [...] Encounter - Roseanne Emerson RN - 11/11/2021 2:10 PM EDT SITUATION: Week #4 hosp dc f/u BACKGROUND: 08/23/21 through 08/30/21 [facility] -acute hypoxic respiratory failure- COPD exacerbation 08/30-09/11/21 [facility] 09/26/21 through 10/09/21 [facility], transferred to [facility] -- c-diff diarrhea 10/13/21 discharged from [facility] to home ASSESSMENT: Phone call to patient -- phone number in [facility] belongs to son Jer Abreu III, who has POA He reports that his father is complaining of problems urinating and that his kidneys are hurting He is not complaining of blood or discolored urine Slight burning with voiding Son has no idea of how well hydrated he is Son states patient has large concentrator for at home Needs hydrated though Portability are already the small tanks and sounds like he already has conserving device "He always complains about his breathing" No new complaints of chest pain Still having multiple stools, had 5 yesterday, "like cow patties, he said" Patient got refill of probiotics Phone call to [facility] to clarify He already has a conserving device and the smallest tanks they supply; they do not handle any portable concentrators anymore Notified son; his is calling around to see if any other place offers "the bag" (he cannot describe what this is, [facility] did not recognize this, and I do not understand it either) Advised son to make sure that patient has liter flow set to 3 even with conserving device; if fearful of tank running out, take extra tank along, and as soon as he checks into appointment ask for nurse to bring out clinic tank Advised son to encourage more fluid intake -- even last week, reported that she was trying to get patient to drink more water Advised acute appointment with provider if urinary symptoms continue or worsen Notify PCP or gastro if worsening stools or abdominal symptoms RECOMMENDATION: Follow up later this week on urinary symptoms Schedule appointment or at least lab work if necessary Then follow up per routine GARRETT Friedman [facility] Care Coordination [address] [facility] [address] documented in this encounter Plan of Treatment Upcoming Encounters Date Type Specialty Care Team Description 12/09/2021 Office Visit Family Medicine Kavya Dillard CRNP [address] [place] [address] 12/17/2021 Telemedicine Gastroenterology Nisreen Jennings CRNP [address] [place] [address] Health Maintenance Due Date Last Done Comments [...] 10/20/2017 LUNG CANCER SCREENING - USE SMARTSET [id number] Completed 06/23/2017 Pneumococcal Vaccine: 65+ Years Completed [...] Documents on File Type Date Recorded Patient Animal Care Supervisor Expl anation Advanced Directive service a [...] Advanced Directive Advanced Directive Care Teams Director Appointment Relationship Specialty Start Date End Date Kavya Dillard CRNP [address] [facility] [place] [address] PCP - General Nurse Practitioner 12/31/20 documented as of this encounter
--- OUTSIDE RECORDS SUMMARY | 2023-04-08 23:09 | External Medical Summary | Summary of Care ---
Author Name Unknown Organization [place] [address] Care Team Providers Care Cuff Setter Overlock Name Role Phone Kavya Dillard Primary Care Provider Encounter Details Date Type Department Care Team Description 09/27/2021 Scan Encounter Family Practice [facility] [address] [facility] [place] [address] Kavya Dillard CRNP 132 [facility] [place] [address] <No scans attached> Allergies No known active allergiesdocumented as of this encounter (statuses as of 09/29/2021) Medications Medication Sig Dispensed Refills Start Date End Date Status acetaminophen (TYLENOL) 500 MG Tablet Take 500 mg by mouth every 4 hours as needed for Pain. 0 11/18/2017 Active hydrocortisone acetate (ANUSOL-HC) 25 MG suppository Administer 25 mg into the rectum 2 times a day as needed for Hemorrhoids. 0 Active Multiple Vitamins-Minerals (MULTIVITAMIN ADULTS) TABS Take by mouth daily. 0 Active famotidine (PEPCID AC) 10 MG TabletIndications:G astroesophageal reflux disease with esophagitis Take 1 Tab by mouth 2 times a day. For heartburn 60 Tab 5 06/01/2018 Active Ventolin HFA 108 (90 Base) MCG/ACT Inhalation Aerosol Solution Inhale 2 Puffs by mouth every 4 hours as needed for Wheezing. Brand necessary 54 g 3 08/06/2020 Active Fluticasone-Salmete rol 250-50 MCG/DOSE Inhalation Aerosol Powder Breath Activated (Advair Diskus) 1 Puff. 0 11/16/2017 Active Levalbuterol HCl 1.25 MG/3ML Inhalation Nebulization Solution (Xopenex)Indication s:Stage 3 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 ([facility]) INHALE 1 AMPULE VIA NEBULIZER 3 TIMES A DAY. 810 mL 1 03/11/2021 Active oxygen IN GASIndications:Inc to 4LPM with ambulation/exertion 2.5 lpm at rest 3 LPM continuous oxygen with exertion DME: [facility] Indications: Inc to 4LPM with ambulation/exertion 1 Each 0 04/01/2021 Active predniSONE 1 MG Oral Tablet (Deltasone)Indicati ons:pt taking half tablet daily 0 03/16/2021 Active Folic Acid 1 MG Oral TabletIndications:C hronic respiratory failure with hypoxia, on home O2 therapy ([facility]) TAKE 1 TABLET BY MOUTH EVERY [...] Brand necessary. 3 Each 3 09/10/2021 Active Metoprolol Tartrate 12.5 MG OR Tablet Take by mouth 12.5 mg in the morning AND 12.5 mg before bedtime. 0 Active Potassium Chloride ER 20 MEQ Oral Tablet Extended Release Take by mouth 20 mEq in the morning. 0 Active Vancomycin HCl 125 MG Oral Capsule (Vancocin) Take by mouth 125 mg every 6 hours . 0 Active Spiriva Respimat 1.25 MCG/ACT Inhalation Aerosol Solution (Tiotropium [place] Monohydrate) INHALE 2 PUFFS BY MOUTH EVERY [...] BEFORE THE FIRST MEAL OF THE DAY 30 Capsule 3 09/22/2021 Active Ipratropium [place] 0.02 % Inhalation Solution (Atrovent)Indicatio ns:Stage 3 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 ([facility]) Inhale via nebulizer 2.5 mL in the morning AND 2.5 mL at noon AND 2.5 mL before bedtime. Diagnosis code J44.9 Stage 3 Sever COPD by Gold classification [facility]. Diagnosis code J96.11 Chronic Resp Failure with hypoxia on home oxygen therapy.. 270 mL 4 09/23/2021 Active documented as of this encounter (statuses as of 09/29/2021) Active Problems Problem Noted Date Atrial fibrillation [...] as of this encounter (statuses as of 09/29/2021) Resolved Problems Problem Noted Date Resolved Date [...] as of this encounter (statuses as of 09/29/2021) Immunizations Name Administration Dates Next Due PPD [...] Team Description 10/29/2021 Office Visit Gastroenterology Nisreen Jennings, GAR[place]TT [address] [place] [address] Health Maintenance Due Date Last Done Comments Zoster Vaccines (1 of 2) 1992 *ADVANCE DIRECTIVE NOT ON FILE 09/25/2020 Depression Screening, Annual for Pts 12 and Over 11/12/2020 11/13/2019 COVID-19 Vaccine (3 - Booster for Moderna series) 06/26/2021 01/24/2021, 10/07/2020 O2 ASSESSMENT COMPLETED IN PAST YEAR FOR COPD 04/01/2022 04/01/2021 DIABETES SCREEN EVERY 3 YRS-AGE 45 AND ABOVE 09/18/2024 09/18/2021, 09/10/2021, 09/09/2021, Additional history exists DTaP,Tdap,and Td Vaccines (2 - Td or Tdap) 10/21/2027 10/20/2017 LUNG CANCER SCREENING - USE SMARTSET [id number] Completed 06/23/2017 Pneumococcal Vaccine: 65+ Years Completed [...] Documents on File Type Date Recorded Patient Medical Parasitologist Expl anation Advanced Directive service a emelia [...] Directive Advanced Directive Advanced Directive Care Teams Cuff Setter Overlock Relationship Specialty Start Date End Date Kavya Dillard CRNP [address] [place] [address] PCP - General Nurse Practitioner 12/31/20 documented as of this encounter
--- OUTSIDE RECORDS SUMMARY | 2023-04-08 23:09 | External Medical Summary ---
Author Name Unknown Address Unknown Organization K09:[facility] [place] [address] Laboratory Report Ordering Provider Test Date Status ROM MOSS 10/10/2021 05:35:00 Final Observation Date Value Abnormality Reference (Units ) Status WBC, Total 10/10/2021 05:35:00 7.38 4.00-10.8 0 (K/uL) Final RBC 10/10/2021 05:35:00 3.06 Below low normal 4.5 0-5.25 (M/uL) Final Hemoglobin 10/10/2021 05:35:00 9.4 Below low normal 14 .0-16.8 (g/dL) Final HCT 10/10/2021 05:35:00 28.6 Below low normal 40. 0-48.4 (%) Final MCV 10/10/2021 05:35:00 93.5 82.0-99.5 (fL) Final MCH 10/10/2021 05:35:00 30.7 27.0-34.0 (pg) Final MCHC 10/10/2021 05:35:00 32.9 32.0-36.0 (g/dL) Final RDW 10/10/2021 05:35:00 13.4 11.5-15.5 (%) Final Platelets 10/10/2021 05:35:00 269 140-400 (K /uL) Final MPV 10/10/2021 05:35:00 9.4 6.6-11.1 ( fL) Final Performing Location [facility] [place] [address]
--- OUTSIDE RECORDS SUMMARY | 2023-04-08 23:09 | External Medical Summary | Summary of Care ---
Author Name Unknown Organization [place] [address] Care Team Providers Care Protection Consultant Name Role Phone Kavya Dillard Primary Care Provider Encounter Details Date Type Department Care Team Description 09/28/2021 Scan Encounter Family Practice [facility] [address] [facility] [place] [address] Kavya Dillard CRNP 132 [place] [address] <No scans attached> Allergies No known active [...] GOLD classification ([facility]) INHALE 1 AMPULE VIA NEBULIZER 3 TIMES A DAY. 810 mL 1 03/11/2021 Active oxygen IN GASIndications:Inc to 4LPM with ambulation/exertion 2.5 lpm at rest 3 LPM continuous oxygen with exertion DME: [facility] Indications: Inc to 4LPM with ambulation/exertion 1 Each 0 04/01/2021 Active predniSONE 1 MG Oral Tablet (Deltasone)Indicati ons:pt taking half tablet daily 0 03/16/2021 Active Folic Acid 1 MG Oral TabletIndications:C hronic respiratory failure with hypoxia, on home O2 therapy ([facility]) TAKE 1 TABLET BY MOUTH EVERY [...] DAY 30 Capsule 3 09/22/2021 Active Ipratropium [place] 0.02 % Inhalation Solution (Atrovent)Indicatio ns:Stage 3 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 Diagnosis code J96.11 Chronic Resp Failure with [...] Nisreen Jennings, GARRETT [address] [place] [address] Health Maintenance Due Date Last Done Comments [...] 10/20/2017 LUNG CANCER SCREENING - USE SMARTSET 50977 Completed 06/23/2017 Pneumococcal Vaccine: 65+ Years Completed [...] Documents on File Type Date Recorded Patient Tool Technician Expl anation Advanced Directive service a [...] Directive Advanced Directive Advanced Directive Care Teams Protection Consultant Relationship Specialty Start Date End Date Kavya Dillard CRNP [address] [place] [address] PCP - General Nurse Practitioner 12/31/20 documented as of this encounter
--- OUTSIDE RECORDS SUMMARY | 2023-04-08 23:09 | External Medical Summary | Summary of Care ---
Author Name Unknown Organization [place] [address] Care Team Providers Care Frame Carver Spindle Name Role Phone Kavya Dillard Primary Care Provider Reason for Referral * Evaluate & Treat - Unlimited Visits (Within 10 days (routine)) - Authorized Specialty Diagnoses / Procedures Referred By Nicole cisse Referred To Contact Urology Diagnoses Urinary retention Tammy Sood CRNP [address] [place] [id number] Referral ID Status Reason Start Date Expiration Date Visits Requested Visits Authorized [id number] Authorized Specialty Services Required 10/21/[phone] Question Answer Referral Priority Within 10 days (routine) What is the patient being referred for? Urinary Concerns Reason for Visit * Reason Comments Hospital Follow-Up Pt states he has not been doing much better since out of the hospital. 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) INHALE 1 AMPULE VIA NEBULIZER 3 TIMES A DAY. 810 mL 1 1 Active oxygen IN GASIndications:Inc to 4LPM with ambulation/exertion 2.5 lpm at rest 3 LPM continuous oxygen with exertion DME: [facility] Indications: Inc to 4LPM with ambulation/exertio n 1 Each 0 1 Active Folic Acid 1 MG Oral TabletIndications:C hronic respiratory failure with hypoxia, on home O2 therapy ([facility]) TAKE 1 TABLET BY MOUTH EVERY [...] Brand necessary. 3 Each 3 2 Active Vancomycin HCl 125 MG Oral Capsule (Vancocin) Take by mouth 125 mg every 6 hours . 0 Active Spiriva Respimat 1.25 MCG/ACT Inhalation Aerosol Solution (Tiotropium [place] Monohydrate) INHALE 2 PUFFS BY MOUTH EVERY DAY 12 g 1 2 Active Thiamine HCl 100 MG Oral Tablet (vitamin B-1) TAKE 1 TABLET BY MOUTH EVERY DAY 90 Tablet 3 2 Active Vitamin B-12 100 MCG Oral Tablet (vitamin B-12) TAKE 100 MCG BY MOUTH DAILY. 90 Tablet 3 2 Active Ipratropium [place] 0.02 % Inhalation Solution (Atrovent)Indicatio ns:Stage 3 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 ([facility]) Inhale via nebulizer 2.5 mL in the morning AND 2.5 mL at noon AND 2.5 mL before bedtime. Diagnosis code J44.9 Stage 3 Sever COPD by Gold classification [facility]. Diagnosis code J96.11 Chronic Resp Failure [...] 4 g daily . 0 2 Active famotidine (PEPCID AC) 10 MG TabletIndications:G astroesophageal reflux disease with esophagitis Take 1 Tab by mouth 2 times a day. For heartburn 60 Tab 5 8 10/22/19 22 Discontinu ed(Medicat ion List Clean Up) Fluticasone-[place] rol 250-50 MCG/DOSE Inhalation Aerosol Powder Breath Activated (Advair Diskus) 1 Puff. 0 8 10/22/19 22 Discontinu ed(Medicat ion List Clean Up) predniSONE 1 MG Oral Tablet (Deltasone)Indicati ons:pt taking half tablet daily 0 1 10/23/19 22 Discontinu ed(Patient preference /discontin uation) Metoprolol Tartrate 12.5 MG OR Tablet Take by mouth 12.5 mg in the morning AND 12.5 mg before bedtime. 0 10/22/19 22 Discontinu ed(Medicat ion List Clean Up) Potassium Chloride ER 20 MEQ Oral Tablet Extended Release Take by mouth 20 mEq in the morning. 0 10/23/19 22 Discontinu ed(Refill) predniSONE 20 MG Oral Tablet (Deltasone) Take by mouth 1 mg in the morning. 0 10/22/19 Discontinu ed(Medicat ion List Clean Up) documented as of this encounter (statuses as of 10/24/2021) Active Problems Problem Noted Date Atrial fibrillation [...] as of this encounter (statuses as of 10/24/2021) Resolved Problems Problem Noted Date Resolved Date [...] as of this encounter (statuses as of 10/24/2021) Immunizations Name Administration Dates Next Due PPD [...] Sign Reading Time Taken Comments Blood Pressure 106/60 10/21/2021 2:13 PM EDT Pulse 98 10/21/2021 2:13 PM EDT Temperature 36.6 C (97.9 F) 10/21/2021 2:13 PM ED T Respiratory Rate - - Oxygen Saturation 97% 10/21/2021 2:13 PM EDT Inhaled Oxygen Concentration - - Weight - - Height - - Body Mass Index - - documented in this encounter Progress Notes * GARRETT Hubbard - 10/21/2021 2:28 PM EDT Images from the original note were not included. History of Present Illness Jer Abreu Jr. is a 80 year old male that presents for Hospital Follow-Up HPI Recently discharged after hospitalization for spesis secondary to cdiff colitis. Has a GI follow upscheduled for next week. Taking oral vanco as prescribed. Still having some diarrhea. Chronic malnutrition. Eating and drinking ok, appetite is improving. Drinking ensure or boost just once per day. Working with PT/OT -- has home based PT/OT 3x per week. No new or worsening dizziness/fatigue. Experienced some urinary retention, scoped in hospital and told ok. No history of prostate disease,never seen urology. He was started on metoprolol in hospital for rate control. Physical Exam Vitals: 10/21/21 1413 Temp: 36.6 C (97.9 F) Pulse: 98 SpO2: 97% BP: 106/60 Physical Exam Constitutional: General: He is not in acute distress. HENT: Head: Normocephalic and atraumatic. Cardiovascular: Rate and Rhythm: Normal rate and regular rhythm. Heart sounds: Normal heart sounds. Pulmonary: Effort: Pulmonary effort is normal. No respiratory distress. Breath sounds: No wheezing or rales. Abdominal: General: Abdomen is flat. There is no distension. Tenderness: There is no abdominal tenderness. Musculoskeletal: Right lower leg: No edema. Left lower leg: No edema. Skin: General: Skin is warm and dry. Capillary Refill: Capillary refill takes less than 2 seconds. Neurological: Mental Status: He is alert and oriented to person, place, and time. Motor: Weakness (generalized, in wheelchair) present. Psychiatric: Behavior: Behavior normal. 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 | Check-out note: Return with Kavya his PCP Time: I spent a total of 40-54 minutes (exact time 40 mins) on the date of service in preparation, delivery, and documentation of the care provided to Jer Abreu Jr. excluding any time spent in the performance of separately billed services. documented in this encounter Nursing Notes * Jossie Zavala LPN - 10/21/2021 2:08 PM EDT Chief Complaint Patient presents with Hospital Follow-Up Pt states he has not been doing much better since out of the hospital. [facility] and got c dff then was sent home. Put on antibiotics and a beta clemente. documented in this encounter Plan of Treatment Upcoming Encounters Date Type Specialty Care Team Description 10/29/2021 Office Visit Gastroenterology Nisreen Jennings CRNP [address] [address] 12/09/2021 Office Visit Family Medicine Kavya Dillard CRNP [address] [address] Scheduled Referrals Name Type Priority Associated Diagnoses Orde r Schedule UROLOGY REFERRAL OP Referral Within 10 da ys (routine) Urinary retention Ordered: 10/21/2021 Health Maintenance Due Date Last Done Comments [...] 10/20/2017 LUNG CANCER SCREENING - USE SMARTSET [id number] Completed 06/23/2017 Pneumococcal Vaccine: 65+ Years Completed [...] as of this encounter Visit Diagnoses Diagnosis Hospital discharge follow-up- Primary Other follow-up examination Clostridium difficile colitis Intestinal infection due to clostridium difficile 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
--- OUTSIDE RECORDS SUMMARY | 2023-04-08 23:09 | External Medical Summary | Summary of Care ---
Author Name Unknown Organization [place] [address] Care Team Providers Care Academic Services Coordinator Name Role Phone Kavya Dillard Primary Care Provider Reason for Visit * Reason Onset Date Comments Medication Refill 10/17/2021 Encounter Details Date Type Department Care Team Description 10/17/2021 Telephone Family Practice [facility] [address] [place] [address] Kavya Dillard CRNP [address] [place] [address] Medication Refill Allergies No known active allergiesdocumented as of this encounter (statuses as of 10/21/2021) Medications Medication Sig Dispensed Refills Start Date [...] 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 ([facility]) INHALE 1 AMPULE VIA NEBULIZER 3 TIMES A DAY. 810 mL 1 1 Active oxygen IN GASIndications:Inc to 4LPM with ambulation/exertion 2.5 lpm at rest 3 LPM continuous oxygen with exertion DME: [facility] Indications: Inc to 4LPM with ambulation/exertio n 1 Each 0 1 Active predniSONE 1 MG Oral Tablet (Deltasone)Indicati ons:pt taking half tablet daily 0 1 Active Folic Acid 1 MG Oral TabletIndications:C hronic respiratory failure with hypoxia, on home O2 therapy ([facility]) TAKE 1 TABLET BY MOUTH EVERY [...] Brand necessary. 3 Each 3 2 Active Potassium Chloride ER 20 MEQ Oral Tablet Extended Release Take by mouth 20 mEq in the morning. 0 Active Vancomycin HCl 125 MG Oral Capsule (Vancocin) Take by mouth 125 mg every 6 hours . 0 Active Spiriva Respimat 1.25 MCG/ACT Inhalation Aerosol Solution (Tiotropium [place] Monohydrate) INHALE 2 PUFFS BY MOUTH EVERY DAY 12 g 1 2 Active Thiamine HCl 100 MG Oral Tablet (vitamin B-1) TAKE 1 TABLET BY MOUTH EVERY DAY 90 Tablet 3 2 Active Vitamin B-12 100 MCG Oral Tablet (vitamin B-12) TAKE 100 MCG BY MOUTH DAILY. 90 Tablet 3 2 Active Ipratropium [place] 0.02 % Inhalation Solution (Atrovent)Indicatio ns:Stage 3 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 ([facility]) Inhale via nebulizer 2.5 mL in the morning AND 2.5 mL at noon AND 2.5 mL before bedtime. Diagnosis code J44.9 Stage 3 Sever COPD by Gold classification [facility]. Diagnosis code J96.11 Chronic Resp Failure with hypoxia on home oxygen therapy.. 270 mL 4 2 Active Omeprazole 40 MG Oral Capsule Delayed Release (PriLOSEC) TAKE 1 CAPSULE BY MOUTH DAILY. 1 HOUR BEFORE THE FIRST MEAL OF THE DAY 90 Capsule 0 2 Active famotidine (PEPCID AC) 10 MG TabletIndications:G astroesophageal reflux disease with esophagitis Take 1 Tab by mouth 2 times a day. For heartburn 60 Tab 5 8 10/22/19 22 Discontinu ed(Medicat ion List Clean Up) Fluticasone-[place] rol 250-50 MCG/DOSE Inhalation Aerosol Powder Breath Activated (Advair Diskus) 1 Puff. 0 8 10/22/19 Discontinu ed(Medicat ion List Clean Up) Metoprolol Tartrate 12.5 MG OR Tablet Take by mouth 12.5 mg in the morning AND 12.5 mg before bedtime. 0 10/22/19 Discontinu ed(Medicat ion List Clean Up) documented as of this encounter (statuses as of 10/21/2021) Active Problems Problem Noted Date Atrial fibrillation [...] as of this encounter (statuses as of 10/21/2021) Resolved Problems Problem Noted Date Resolved Date [...] as of this encounter (statuses as of 10/21/2021) Immunizations Name Administration Dates Next Due PPD [...] encounter Miscellaneous Notes * Telephone Encounter - Radha Grossman LPN - 10/21/2021 4:27 PM EDT Patient & daughter notified of message below, verbalizes understanding. * Telephone Encounter - GARRETT Root - 10/21/2021 4:04 PM EDT Prednisone daily was discontinued. He is not supposed be taking daily. Randy, MSN, GARRETT [facility] * Telephone Encounter - Myrtle Lopez CPhT - 10/17/2021 3:39 PM EDT The following medication is listed as discontinued as of 07/11/2020, due to "PT PREFERENCE" please review and approve if appropriate. Daughter is requesting refill and very vague as to why being requested when asked, but states "I don't know..but he takes everyday". predniSONE (DELTASONE) 20 MG Tablet (Discontinued) 15 Tab 0 01/23/2020 07/11/2020 Sig: TAKE 2 TABLETS A DAY FOR 5 DAYS, THEN 1 TABLET A DAY FOR 5 DAYS Patient not taking: Reported on 07/11/2020 Sent to pharmacy as: predniSONE (DELTASONE) 20 MG Tablet Class: ePrescribing Notes to Pharmacy: patient is reqesting new script to [facility] today Reason for Discontinue: Patient preference/discontinuation Thank you, Myrtle Lopez CPhT [facility] 10/17/2021, 3:41 PM documented in this encounter Plan of Treatment Upcoming Encounters Date Type Specialty Care Team Description 10/29/2021 Office Visit Gastroenterology Nisreen Jennings CRNP [address] [place] [address] 12/09/2021 Office Visit Family Medicine Gilma Kavya GARRETT Lenz [address] [address] Health Maintenance Due Date Last Done Comments [...] 10/20/2017 LUNG CANCER SCREENING - USE SMARTSET [id number] Completed 06/23/2017 Pneumococcal Vaccine: 65+ Years Completed [...] on File Type Date Recorded Patient Vehicle Monitor Technician Expl anation Advanced Directive service a [...] Directive Advanced Directive Advanced Directive Care Teams Academic Services Coordinator Relationship Specialty Start Date End Date Kavya Dillard CRNP [address] [facility] [place] [address] PCP - General Nurse Practitioner 12/31/20 documented as of this encounter
--- OUTSIDE RECORDS SUMMARY | 2023-04-08 23:09 | External Medical Summary | Summary of Care ---
Author Name Unknown Organization [place] [address] Care Team Providers Care Broth Setter Name Role Phone Kavya Dillard Primary Care Provider Encounter Details Date Type Department Care Team Description 09/28/2021 Scan Encounter Family Practice [facility] [address] [facility] [place] [address] Kavya Dillard CRNP [address] [place] [address] <No scans attached> Allergies No known active [...] 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 ([facility]) INHALE 1 AMPULE VIA NEBULIZER 3 TIMES [...] hypoxia, on home O2 therapy ([facility]) TAKE 1 TABLET BY MOUTH EVERY DAY [...] Respimat 1.25 MCG/ACT Inhalation Aerosol Solution (Tiotropium [place] Monohydrate) INHALE 2 PUFFS BY MOUTH EVERY [...] DAY 30 Capsule 3 09/22/2021 Active Ipratropium [place] 0.02 % Inhalation Solution (Atrovent)Indicatio ns:Stage 3 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 ([facility]) Inhale via nebulizer 2.5 mL in the morning AND 2.5 mL at noon AND 2.5 mL before bedtime. Diagnosis code J44.9 Stage 3 Sever COPD by Gold classification [facility]. Diagnosis code J96.11 Chronic Resp Failure with [...] Nisreen Jennings, GARRETT [address] [place] [address] Health Maintenance Due Date Last Done Comments [...] 10/20/2017 LUNG CANCER SCREENING - USE SMARTSET [id number] Completed 06/23/2017 Pneumococcal Vaccine: 65+ Years Completed [...] Documents on File Type Date Recorded Patient Dormitory Keeper Expl anation Advanced Directive service a emelia [...] Directive Advanced Directive Advanced Directive Care Teams Broth Setter Relationship Specialty Start Date End Date Kavya Dillard CRNP [address] [address] PCP - General Nurse Practitioner 12/31/20 documented as of this encounter
--- OUTSIDE RECORDS SUMMARY | 2023-04-08 23:09 | External Medical Summary | Summary of Care ---
Author Name Unknown Organization [place] [address] Care Team Providers Care Staff Attorney Name Role Phone Kavya Dillard Primary Care Provider Reason for Visit * Reason Onset Date Comments Med Request 10/22/2021 Encounter Details Date Type Department Care Team Description 10/22/2021 Telephone [facility] [address] [facility] [place] [address] Kavya Dillard CRNP [address] [place] [address] Med Request Allergies No known active allergiesdocumented as of this encounter (statuses as of 10/22/2021) Medications Medication Sig Dispensed Refills Start Date [...] s:Stage 3 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 ([facility]) INHALE 1 AMPULE VIA NEBULIZER 3 TIMES A DAY. 810 mL 1 1 Active oxygen IN GASIndications:Inc to 4LPM with ambulation/exertion 2.5 lpm at rest 3 LPM continuous oxygen with exertion DME: [facility] Indications: Inc to 4LPM with [...] Respimat 1.25 MCG/ACT Inhalation Aerosol Solution (Tiotropium [place] Monohydrate) INHALE 2 PUFFS BY MOUTH EVERY DAY 12 g 1 2 Active Thiamine HCl 100 MG Oral Tablet (vitamin B-1) TAKE 1 TABLET BY MOUTH EVERY DAY 90 Tablet 3 2 Active Vitamin B-12 100 MCG Oral Tablet (vitamin B-12) TAKE 100 MCG BY MOUTH DAILY. 90 Tablet 3 2 Active Ipratropium [place] 0.02 % Inhalation Solution (Atrovent)Indicatio ns:Stage 3 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 ([facility]) Inhale via nebulizer 2.5 mL in the morning AND 2.5 mL at noon AND 2.5 mL before bedtime. Diagnosis code J44.9 Stage 3 Sever COPD by Gold classification [facility]. Diagnosis code J96.11 Chronic Resp Failure with hypoxia on home oxygen therapy.. 270 mL 4 2 Active Omeprazole 40 MG Oral Capsule Delayed Release (PriLOSEC) TAKE 1 CAPSULE BY MOUTH DAILY. 1 HOUR BEFORE THE FIRST MEAL OF THE DAY 90 Capsule 0 05/13/202 2 Active Metoprolol Tartrate 25 MG Oral [...] the morning. 30 Tablet 3 2 Active Potassium Chloride ER 20 MEQ Oral Tablet Extended Release Take by mouth 20 mEq in the morning. 0 10/23/19 22 Discontinu ed(Refill) documented as of this encounter (statuses as of 10/22/2021) Active Problems Problem Noted Date Atrial fibrillation [...] as of this encounter (statuses as of 10/22/2021) Resolved Problems Problem Noted Date Resolved Date [...] as of this encounter (statuses as of 10/22/2021) Immunizations Name Administration Dates Next Due PPD [...] encounter Miscellaneous Notes * Telephone Encounter - Saige Serrano RN - 10/22/2021 1:07 PM EDT Needs a refill on potassium. Next office visit on 12/09/21. Pending Prescriptions: Disp Refills Potassium Chloride ER 20 MEQ Oral Tablet *30 Tab*3 Sig: Take by mouth 1 Tablet in the morning. documented in this encounter Plan of Treatment Upcoming Encounters Date Type Specialty Care Team Description 10/29/2021 Office Visit Gastroenterology Nisreen Jennings CRNP [address] [address] 12/09/2021 Office Visit Family Medicine Kavya Dillard CRNP [address] [address] Health Maintenance Due Date Last Done Comments [...] 10/20/2017 LUNG CANCER SCREENING - USE SMARTSET [id number] Completed 06/23/2017 Pneumococcal Vaccine: 65+ Years Completed [...] Documents on File Type Date Recorded Patient Housekeeper Head Expl anation Advanced Directive service a emelia [...] Directive Advanced Directive Advanced Directive Care Teams Staff Attorney Relationship Specialty Start Date End Date Kavya Dillard CRNP [address] [place] [address] PCP - General Nurse Practitioner 12/31/20 documented as of this encounter
--- OUTSIDE RECORDS SUMMARY | 2023-04-08 23:09 | External Medical Summary | Summary of Care ---
Author Name Unknown Organization [place] [address] Care Team Providers Care Software Test Specialist Name Role Phone Kavya Dillard Yoanna GARRETT Primary Care Provider Encounter Details Date Type Department Care Team Description 10/16/2021 Satellite Communications OperatorMicrowave Radio TechnicianUniversity [facility] [address] [place] [address] Isamar Soares, FRANCES [address] [place] [address] Clostridium difficile colitis* Allergies No known active allergiesdocumented as of this encounter (statuses as of 10/16/2021) Medications Medication Sig Dispensed Refills Start Date [...] 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 ([facility]) INHALE 1 AMPULE VIA NEBULIZER 3 TIMES A DAY. 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 Diagnosis code J44.9 Stage 3 Sever COPD by Gold classification [facility]. Diagnosis code J96.11 Chronic Resp Failure with hypoxia on home oxygen therapy.. 270 mL 4 09/23/2021 Active documented as of this encounter (statuses as of 10/16/2021) Active Problems Problem Noted Date Atrial fibrillation [...] as of this encounter (statuses as of 10/16/2021) Resolved Problems Problem Noted Date Resolved Date [...] as of this encounter (statuses as of 10/16/2021) Immunizations Name Administration Dates Next Due PPD [...] as of this encounter Progress Notes * Isamar Soares RN - 10/16/2021 3:11 PM EDT Case Management Assessment-spoke with patient & his Violeta, patient s/p hospitalization to [facility] on 09/27/21, treated for Sepsis secondary to c.diff, hypoxia, malnutrition, transferred to [facility] on 10/10/21, discharged home with home health on 10/13/21 Is this call for a hospital, shelter or rehab facility discharge to home? Yes see above S: Reports: Patient has chronic SOB with ambulation, has an occasional productive cough Using O2 at 3 liters 28/12 Denies LE edema or angina Has a fair diet, bowels are moving some, denies urinary complaints Has some occasional discomfort across his belly at times No skin issues, sleeping okay at night Patient lives with his in a mobile home Patient independent with ambulation, needs assistance with bathing, does the driving, manages his medications Confirmed he is being followed by home health, did not remember the name of the agency Confirmed patient has a PCP follow up appointment on 10/21/21 No current questions/concerns O: Phone visit for post hospitalization. Medications: unable to do med rec, do not have [facility] d/c summary and takes all medications as prescribed. Does this patient qualify for an annual wellness visit? No A: Patient Centered Prioritized Goals: recover from c.diff without further complications, improve strength & endurance, stay safe in his home, prevent readmission Exacerbations have been prevented, minimized or reduced in severity. Co-morbid conditions identified and managed. Patient/ caregiver demonstrates adherence to treatment plan. Identified Barriers: No identified barriers FUNCTIONAL STATUS: (Definition - assess ability to patient to manage their own care, includes evaluation of activities of daily living, and instrumental activities of daily living, and cognitive abilities status) ADL'S - Needs Assistance With: Bathing IADL'S - Needs Assistance With: Grocery Shopping, Routine Housework and Taking medications Cognitive and Mental Health: denies problems, alert and oriented x 3 and able to communicate, understand instructions, process information. P: Satellite Communications Operator Interventions: Encouraged patient to call with increased SOB, cough, fever, chills Encouraged patient to complete Vancomycin treatment until complete COPD: Pt instructed to: -Call with increased SOB, wheezing, chest tightness, increased cough, increased sputum with change in color or consistency and fever. -Wash hands often -Drink plenty of fluids -Use inhalers as directed, do not stop or skip doses -Avoid stress -Rest when tired or SOB -Avoid triggers -Clean inhalers once a week Reinforced safety education / fall prevention Reinforced medication regimen - timing / dosing / purpose Take medications as prescribed Discussed the importance of safety precautions Keep f/u appointments PCP follow up appointment Advised to call office for any change in health status or questions concerning care Encouraged patient to call case loader operator with any questions/concerns at [phone]. Office Hours: Wed- 8-8 pm, Wednesday 8-5 pm, [facility] weekend clinic hours: Saturdays 8-5, Sundays 8-5 PCP Notified of enrollment in CM/HM program: Yes SNP Member? No Re-evaluation of plan of care and progress towards goals achievement: Plan to call patient next week to reassess and update plan of care, verbalizes understanding and agrees with plan. Isamar Soares RN Outpatient Satellite Communications Operator documented in this encounter Plan of Treatment Upcoming Encounters Date Type Specialty Care Team Description 10/21/2021 Office Visit Family Medicine Tammy Sood CRNP [address] [address] 10/29/2021 Office Visit Gastroenterology Nisreen Jennings CRNP [address] [address] Health Maintenance Due Date Last Done Comments [...] 10/20/2017 LUNG CANCER SCREENING - USE SMARTSET 63310 Completed 06/23/2017 Pneumococcal Vaccine: 65+ Years Completed [...] as of this encounter Visit Diagnoses Diagnosis Clostridium difficile colitis- Primary Intestinal infection due to clostridium difficile documented in this encounter Advance Directives Documents on File Type Date Recorded Patient Tape Maker Expl anation Advanced Directive service a emelia [...] Directive Advanced Directive Advanced Directive Care Teams Software Test Specialist Relationship Specialty Start Date End Date [facility] Dillard [facility] [address] [facility] [place] [address] PCP - General Nurse Practitioner 12/31/20 documented as of this encounter
--- OUTSIDE RECORDS SUMMARY | 2023-04-08 23:09 | External Medical Summary | Summary of Care ---
Author Name Unknown Organization [place] [address] Care Team Providers Care Case Management Assistant Name Role Phone Kavya Dillard Primary Care Provider Encounter Details Date Type Department Care Team Description 10/09/2021 Scan Encounter Family Practice [facility] [address] [facility] [place] [address] Kavya Dillard CRNP [address] [facility] [address] <No scans attached> Allergies No known active allergiesdocumented as of this encounter (statuses as of 10/13/2021) Medications Medication Sig Dispensed Refills Start Date [...] s:Stage 3 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 ([facility]) INHALE 1 AMPULE VIA NEBULIZER 3 TIMES A DAY. 810 mL 1 03/11/2021 Active oxygen IN GASIndications:Inc to 4LPM with ambulation/exertion 2.5 lpm at rest 3 LPM continuous oxygen with exertion DME: [facility] Indications: Inc to 4LPM with ambulation/exertion 1 Each 0 04/01/2021 Active predniSONE 1 MG Oral Tablet (Deltasone)Indicati ons:pt taking half tablet daily 0 03/16/2021 Active Folic Acid 1 MG Oral TabletIndications:C hronic respiratory failure with hypoxia, on home O2 therapy ([facility]) TAKE 1 TABLET BY MOUTH EVERY DAY [...] Respimat 1.25 MCG/ACT Inhalation Aerosol Solution (Tiotropium [place] Monohydrate) INHALE 2 PUFFS BY MOUTH EVERY [...] DAY 30 Capsule 3 09/22/2021 Active Ipratropium [place] 0.02 % Inhalation Solution (Atrovent)Indicatio ns:Stage 3 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 ([facility]) Inhale via nebulizer 2.5 mL in the morning AND 2.5 mL at noon AND 2.5 mL before bedtime. Diagnosis code J44.9 Stage 3 Sever COPD by Gold classification [facility]. Diagnosis code J96.11 Chronic Resp Failure with hypoxia on home oxygen therapy.. 270 mL 4 09/23/2021 Active documented as of this encounter (statuses as of 10/13/2021) Active Problems Problem Noted Date Atrial fibrillation [...] as of this encounter (statuses as of 10/13/2021) Resolved Problems Problem Noted Date Resolved Date [...] as of this encounter (statuses as of 10/13/2021) Immunizations Name Administration Dates Next Due PPD [...] Gastroenterology Nisreen Jennings CRNP [address] [address] Health Maintenance Due Date Last Done Comments [...] 10/20/2017 LUNG CANCER SCREENING - USE SMARTSET [id number] Completed 06/23/2017 Pneumococcal Vaccine: 65+ Years Completed [...] Documents on File Type Date Recorded Patient Yard Associate Expl anation Advanced Directive service a emelia [...] Directive Advanced Directive Advanced Directive Care Teams Case Management Assistant Relationship Specialty Start Date End Date Kavya Dillard CRNP [address] [address] PCP - General Nurse Practitioner 12/31/20 documented as of this encounter
--- OUTSIDE RECORDS SUMMARY | 2023-04-08 23:09 | External Medical Summary | Summary of Care ---
Author Name Unknown Organization [place] [address] Care Team Providers Care Interim Controller Name Role Phone Kavya Dillard GARRETT Primary Care Provider Reason for Visit * Reason Onset Date Comments case management 10/27/2021 UTC #1, due for week #2 post hosp dc f/u Encounter Details Date Type Department Care Team Description 10/27/2021 Gravity Prospecting Observer Telephone Care Coordination [address] [place] [address] Roseanne Emerson RN [address] [place] [id number] case management (UTC #1, due for week #2 p... Allergies No known active allergiesdocumented as of this encounter (statuses as of 10/27/2021) Medications Medication Sig Dispensed Refills Start Date [...] 3 LPM continuous oxygen with exertion DME: [facility] Indications: Inc to 4LPM with ambulation/exertion 1 Each 0 04/01/2021 Active Folic Acid 1 MG Oral TabletIndications:C hronic respiratory failure with hypoxia, on home O2 therapy ([facility]) TAKE 1 TABLET BY MOUTH EVERY [...] Respimat 1.25 MCG/ACT Inhalation Aerosol Solution (Tiotropium [place] Monohydrate) INHALE 2 PUFFS BY MOUTH EVERY DAY 12 g 1 09/20/2021 Active Thiamine HCl 100 MG Oral Tablet (vitamin B-1) TAKE 1 TABLET BY MOUTH EVERY DAY 90 Tablet 3 09/22/2021 Active Vitamin B-12 100 MCG Oral Tablet (vitamin B-12) TAKE 100 MCG BY MOUTH DAILY. 90 Tablet 3 09/22/2021 Active Ipratropium [place] 0.02 % Inhalation Solution (Atrovent)Indicatio ns:Stage 3 [...] as of this encounter (statuses as of 10/27/2021) Active Problems Problem Noted Date Atrial fibrillation [...] as of this encounter (statuses as of 10/27/2021) Resolved Problems Problem Noted Date Resolved Date [...] as of this encounter (statuses as of 10/27/2021) Immunizations Name Administration Dates Next Due PPD [...] Telephone Encounter - Roseanne Emerson RN - 10/27/2021 2:45 PM EDT 1. Follow-up Post Discharge 2. Attempted Phone Call First Attempt 3. Call Unanswered Left Voicemail 4. Plan To attempt Follow-up documented in this encounter Plan of Treatment Upcoming Encounters Date Type Specialty Care Team Description 10/29/2021 Office Visit Gastroenterology Nisreen Jennings CRNP [address] [place] [address] 12/09/2021 Office Visit Family Medicine Kavya Dillard CRNP [address] [address] [address] Health Maintenance Due Date Last Done Comments [...] 10/20/2017 LUNG CANCER SCREENING - USE SMARTSET [id number] Completed 06/23/2017 Pneumococcal Vaccine: 65+ Years Completed [...] Documents on File Type Date Recorded Patient Radio Survey Worker Expl anation Advanced Directive service a [...] Directive Advanced Directive Advanced Directive Care Teams Interim Controller Relationship Specialty Start Date End Date Kavya Dillard CRNP [address] [address] PCP - General Nurse Practitioner 12/31/20 documented as of this encounter
--- OUTSIDE RECORDS SUMMARY | 2023-04-08 23:09 | External Medical Summary | Summary of Care ---
Author Name Unknown Organization [place] [address] Care Team Providers Care Lean Manufacturing Specialist Name Role Phone Kavya Dillard GARRETT Primary Care Provider Reason for Visit * Reason Onset Date Comments case management 09/17/2021 Encounter Details Date Type Department Care Team Description 09/17/2021 Credentialing Manager Telephone Care Coordination [address] [place] [address] Rahel Akhtar, cash management officer Allergies No known active allergiesdocumented as of [...] 0 Active famotidine (PEPCID AC) 10 MG TabletIndications: Gastroesophageal reflux disease with esophagitis Take 1 Tab by mouth 2 times a day. For heartburn 60 Tab 5 06/01/20 18 Active Ventolin HFA 108 (90 Base) MCG/ACT Inhalation Aerosol Solution Inhale 2 Puffs by mouth every 4 hours as needed for Wheezing. Brand necessary 54 g 3 08/07/19 21 Active Fluticasone-Salmet umberto 250-50 MCG/DOSE Inhalation Aerosol Powder Breath Activated (Advair Diskus) 1 Puff. 0 11/17/19 18 Active Levalbuterol HCl 1.25 MG/3ML Inhalation Nebulization [...] 4LPM with ambulation/exerti on 1 Each 0 04/01/20 21 Active predniSONE 1 MG Oral Tablet (Deltasone)Indicat ions:pt taking half tablet daily 0 03/16/20 21 Active Folic Acid 1 MG Oral [...] necessary. 3 Each 3 09/11/19 22 Active Metoprolol Tartrate 12.5 MG OR Tablet Take by mouth 12.5 mg in the morning AND 12.5 mg before bedtime. 0 Active Potassium Chloride ER 20 MEQ Oral Tablet Extended Release Take by mouth 20 mEq in the morning. 0 Active Vancomycin HCl 125 MG Oral Capsule (Vancocin) Take by mouth 125 mg every 6 hours . 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 Diagnosis code J44.9 Stage 3 Sever COPD by Gold classification [facility]. Diagnosis code J96.11 Chronic Resp Failure with hypoxia on home oxygen therapy. 270 mL 4 07/25/19 21 022 Discontinued(Re fill) B-12 100 MCG Oral Tablet Take 100 mcg by mouth daily. 30 Tab 11 11/12/19 21 022 Discontinued Spiriva Respimat 1.25 MCG/ACT Inhalation Aerosol Solution (Tiotropium [place] Monohydrate) INHALE 2 PUFFS BY MOUTH EVERY DAY 12 g 1 03/20/20 21 022 Discontinued Thiamine HCl 100 MG Oral Tablet (vitamin B-1) TAKE 1 TABLET BY MOUTH EVERY DAY 90 Tablet 1 05/06/20 21 022 Discontinued Omeprazole 40 MG Oral Capsule Delayed Release (PriLOSEC) Take 1 Capsule by mouth daily. 1 hour before the first meal of the day 30 Capsule 0 05/07/20 21 022 Discontinued documented as of this [...] Telephone Encounter - Rahel Akhtar RN - 09/17/2021 10:47 AM EDT Case Management Assessment Is this call for a hospital, fdc or rehab facility discharge to home? Yes 08/23/21 through 08/30/21 [facility] -acute hypoxic respiratory failure- COPD exacerbation 08/30-09/11/21 [facility]: Reports: He is doing well. HH was in and his is helping him with PT. He lives in a trailer with 3 steps in. Diarrhea seems to be improving. He does have some abdominal discomfort at times andSOB after eating. Increased edema: denies Chest pain denies Increased shortness of breath: dyspnea increased after eating and with daily activities triggers bloating oxygen 3L Chills / Sweats / Fever: denies fever Fall: denies assistive device:cane Appetite: denies nausea, vomiting, burning, decreased appetite Bowel: diarrhea Bladder: denies problems Medications: added new medications O: Phone visit for SULEMA. Medications: takes all medications as prescribed. A: Patient Centered Prioritized Goals: Development of self - management action plan with patient/caregiver/ provider. Patient and caregiver demonstrate basic understanding of their disease process. Exacerbations have been prevented, minimized or reduced in severity. Co-morbid conditions identified and managed. Patient/ caregiver demonstrates adherence to treatment plan. Identified Barriers: Patient/caregiver's lack of understanding of their condition and prescribed treatment plan and Older than 70 years FUNCTIONAL STATUS: (Definition - assess ability to patient to manage their own care, includes evaluation of activities of daily living, and instrumental activities of daily living, and cognitive abilities status) ADL'S - Needs Assistance With: N/A as pt is independent IADL'S - Needs Assistance With: Grocery Shopping, Cooking food, Routine Housework and Taking medications Cognitive and Mental Health: denies problems, alert and oriented x 3 and able to communicate, understand instructions, process information. P: Credentialing Manager Interventions: Explained/reinforced role of director case management. Encouraged to call with any issues or concerns. Gave direct phone number and contact information. COPD: Pt instructed to: -Call with increased SOB, wheezing, chest tightness, increased cough, increased sputum with change in color or consistency and fever. -Wash hands often -Drink plenty of fluids -Use inhalers as directed, do not stop or skip doses -Avoid stress -Rest when tired or SOB -Avoid triggers -Clean inhalers once a week Encouraged to call if diarrhea worsens or does not improve once vanco complete Reinforced safety education / fall prevention Reinforced medication regimen - timing / dosing / purpose PCP Notified of enrollment in CM/HM program: Yes SNP Member? No Re-evaluation of plan of care and progress towards goals achievement: Plan to call patient in 5 days via IVR to reassess and update plan of care, instructed to call CaseManager or Primary Care Provider with change in symptoms or as needed before next follow-up, verbalizes understanding and agrees with plan. Rahel Akhtar RN Outpatient Credentialing Manager * Telephone Encounter - Rahel Akhtar RN - 09/17/2021 9:02 AM EDT 1. Follow-up Post Discharge 2. Attempted Phone Call First Attempt 3. Call Unanswered Left Voicemail 4. Plan To attempt Follow-up Rahel Akhtar RNreference test clerk [phone] documented in this encounter Plan of Treatment Upcoming Encounters Date Type Specialty Care Team Description 10/21/2021 Office Visit Family Medicine Tammy Sood CRNP [address] [address] 10/29/2021 Office Visit Gastroenterology Nisreen Jennings CRNP [address] [address] Health Maintenance Due Date Last Done Comments [...] 10/20/2017 LUNG CANCER SCREENING - USE SMARTSET [id number] Completed 06/23/2017 Pneumococcal Vaccine: 65+ Years Completed [...] Documents on File Type Date Recorded Patient Trim Attacher Expl anation Advanced Directive service a emelia [...] Directive Advanced Directive Advanced Directive Care Teams Lean Manufacturing Specialist Relationship Specialty Start Date End Date Kavya Dillard CRNP [address] [facility] [place] [address] PCP - General Nurse Practitioner 12/31/20 documented as of this encounter
--- OUTSIDE RECORDS SUMMARY | 2023-04-08 23:09 | External Medical Summary ---
Author Name Unknown Address Unknown Organization K09:[facility] [place] [address] Laboratory Report Ordering Provider Test Date Status ROM MOSS 10/10/2021 05:35:00 Final Observation Date Value Abnormality Reference (Units ) Status BUN 10/10/2021 05:35:00 10 6-20 (mg/dL) Final Creatinine 10/10/2021 05:35:00 0.8 0.6-1.2 (mg/dL) Final Glomerular filtration rate/1.73 sq M.predicted [Volume Rate/Area] in Serum, Plasma or Blood by Creatinine-based formula (CKD-EPI) 10/10/2021 05:35:00 >90 >=60 (mL/min) Final eGFR is calculated based on the CKD-EPI 2020 equation Sodium 10/10/2021 05:35:00 142 135-146 (m mol/L) Final Potassium 10/10/2021 05:35:00 3.8 3.5-5.1 (m mol/L) Final Cl 10/10/2021 05:35:00 107 98-107 (mm ol/L) Final CO2 10/10/2021 05:35:00 26 22-32 (mmo l/L) Final Anion gap 10/10/2021 05:35:00 9 7-15 (mmol /L) Final Glucose 10/10/2021 05:35:00 81 70-120 (mg /dL) Final Calcium 10/10/2021 05:35:00 8.6 8.4-10.2 ( mg/dL) Final Performing Location [facility] [place] [address]
--- OUTSIDE RECORDS SUMMARY | 2023-04-08 23:09 | External Medical Summary | Summary of Care ---
Author Name Unknown Organization [place] [address] Care Team Providers Care Outpatient Facility Physical Therapist Name Role Phone Kavya Dillard GARRETT Primary Care Provider Reason for Visit * Reason Onset Date Comments case management 10/22/2021 Encounter Details Date Type Department Care Team Description 10/22/2021 [facility] [address] [address] Saige Serrano RN [address] [place] [address] case management Allergies No known active allergiesdocumented [...] continuous oxygen with exertion DME: [facility] Indications: Inc to 4LPM with [...] Respimat 1.25 MCG/ACT Inhalation Aerosol Solution (Tiotropium [place] Monohydrate) INHALE 2 PUFFS BY MOUTH EVERY DAY 12 g 1 2 Active Thiamine HCl 100 MG Oral Tablet (vitamin B-1) TAKE 1 TABLET BY MOUTH EVERY DAY 90 Tablet 3 2 Active Vitamin B-12 100 MCG Oral Tablet (vitamin B-12) TAKE 100 MCG BY MOUTH DAILY. 90 Tablet 3 2 Active Ipratropium [place] 0.02 % Inhalation Solution (Atrovent)Indicatio ns:Stage 3 [...] 4 g daily . 0 2 Active predniSONE 1 MG Oral Tablet (Deltasone)Indicati ons:pt taking half tablet daily 0 1 10/23/19 22 Discontinu ed(Patient preference /discontin uation) Potassium Chloride ER 20 MEQ Oral Tablet [...] Encounter - Saige Serrano RN - 10/22/2021 12:57 PM EDT Case Management Assessment s/p hospitalization to [facility] on 09/27/21, treated for Sepsis secondary to c.diff, hypoxia, malnutrition, transferred to [facility] on 10/10/21, discharged home with home health on 10/13/21 Is this call for a hospital, mcc or rehab facility discharge to home? No S: Reports: Reports he is feeling about the same. Is moving more at home. Will be working with home PT. Reports breathing is stable. Wearing oxygen as directed. Increased edema: denies Chest pain Denies Increased shortness of breath: wearing oxygen at 3 lit/min continuously; very occasional cough - productive with clear sputum. denies Chills / Sweats / Fever: denies chills/sweats and denies fever Fall: denies any falls since last Care Management encounter assistive device:cane Appetite: Reports appetite is fair denies nausea, vomiting, burning, decreased appetite Bowel: denies problems Bladder: Sometimes has trouble starting urinary stream. 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 and takes all medications as prescribed. Chronic Pain: Some slight pain near his umbilicus - takes tylenol. O: Phone visit for case management follow up, week #1. 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 Does this patient qualify for an annual wellness visit? No A: Patient Centered Prioritized Goals: Patient and caregiver demonstrate basic understanding of their disease process. Exacerbations have been prevented, minimized or reduced in severity. Co-morbid conditions identified and managed. Patient/ caregiver demonstrates adherence to treatment plan. Identified Barriers: Older than 70 years Cognitive and Mental Health: denies problems, alert and oriented x 3 and able to communicate, understand instructions, process information. P: Strip Picker Interventions: Medications reviewed and updated in Epic. Needs a refill on potassium - pended to provider. 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 Monitor and report the following symptoms for worsening of COPD: increased shortness of breath, wheezing, increased cough, chest tightness, fever or chills, increased sputum with change in color and consistency, increased fatigue, decrease in appetite. Encouraged paced activities, frequent rest periods, pursed lip breathing. Instructed to report any signs of infection: Redness, swelling, uncontrolled pain, green/yellow drainage, foul odor or fever. Reinforced safety education / fall prevention Reinforced medication regimen - timing / dosing / purpose PCP Notified of enrollment in CM/HM program: No SNP Member? No Re-evaluation of plan of care and progress towards goals achievement: Plan to call patient in 1-2 weeks to reassess and update plan of care, instructed to call Strip Picker or Primary Care Provider with change in symptoms or as needed before next follow-up, verbalizes understanding and agrees with plan. Saige Serrano RN Outpatient Strip Picker * Telephone Encounter - Saige Serrano RN - 10/22/2021 10:00 AM EDT 1. Follow-up Routine SULEMA 07/13 2. Attempted Phone Call First Attempt 3. Call Unanswered Left Voicemail 4. 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
--- OUTSIDE RECORDS SUMMARY | 2023-04-08 23:10 | External Medical Summary | Summary of Care ---
Author Name Unknown Organization [place] [address] Care Team Providers Care Regulatory Internship Name Role Phone Kavya Jacinto Primary Care Provider Reason for Visit * Reason Comments eRx-Medication Refill Encounter Details Date Type Department Care Team Description 09/19/2021 Refill Family Practice [facility] [address] [place] [address] Kavya Jacinto CRNP [address] [place] [address] Allergies No known active allergiesdocumented as of this encounter (statuses as of 09/22/2021) Medications Medication Sig Dispensed Refills Start Date [...] heartburn 60 Tab 5 06/01/20 18 Active Ipratropium [place] 0.02 % Inhalation Solution (Atrovent)Indicati ons:Stage 3 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 ([facility]) Inhale 2.5 mL via nebulizer 3 times a day. Diagnosis code J44.9 Stage 3 Sever COPD by Gold classification [facility]. Diagnosis code J96.11 Chronic Resp Failure with hypoxia on home oxygen therapy. 270 mL 4 07/25/19 21 Active Ventolin HFA 108 (90 Base) MCG/ACT [...] n 1 Each 0 04/01/20 21 Active predniSONE [...] Respimat 1.25 MCG/ACT Inhalation Aerosol Solution (Tiotropium [place] Monohydrate) INHALE 2 PUFFS BY MOUTH EVERY DAY 12 g 1 09/21/19 22 Active Thiamine HCl 100 MG Oral Tablet (vitamin B-1) TAKE 1 TABLET BY MOUTH EVERY DAY 90 Tablet 3 09/23/19 22 Active Vitamin B-12 100 MCG Oral Tablet (vitamin B-12) TAKE 100 MCG BY MOUTH DAILY. 90 Tablet 3 09/23/19 22 Active Omeprazole 40 MG Oral Capsule Delayed Release (PriLOSEC) TAKE 1 CAPSULE BY MOUTH DAILY. 1 HOUR BEFORE THE FIRST MEAL OF THE DAY 30 Capsule 3 09/23/19 22 Active B-12 100 MCG Oral Tablet Take 100 mcg by mouth daily. 30 Tab 11 11/12/19 21 022 Discontinued Spiriva Respimat 1.25 MCG/ACT Inhalation Aerosol Solution (Tiotropium [place] Monohydrate) INHALE 2 PUFFS BY MOUTH EVERY [...] as of this encounter (statuses as of 09/22/2021) Active Problems Problem Noted Date Atrial fibrillation [...] as of this encounter (statuses as of 09/22/2021) Resolved Problems Problem Noted Date Resolved Date [...] as of this encounter (statuses as of 09/22/2021) Immunizations Name Administration Dates Next Due PPD [...] * Telephone Encounter - GARRETT Root - 09/22/2021 7:45 AM EDT Signed Prescriptions: Disp Refills Spiriva Respimat 1.25 MCG/ACT Inhalation A*12 g 1 Sig: INHALE 2 PUFFS BY MOUTH EVERY DAY Authorizing Provider: KAVYA JACINTO Ordering User: RORY ALY Thiamine HCl 100 MG Oral Tablet (vitamin B*90 Tab*3 Sig: TAKE 1 TABLET BY MOUTH EVERY DAY Authorizing Provider: KAVYA JACINTO Vitamin B-12 100 MCG Oral Tablet ( vitamin *90 Tab*3 Sig: TAKE 100 MCG BY MOUTH DAILY. Authorizing Provider: KAVYA JACINTO Omeprazole 40 MG Oral Capsule Delayed Rele*30 Cap*3 Sig: TAKE 1 CAPSULE BY MOUTH DAILY. 1 HOUR BEFORE THE FIRST MEAL OF THE DAY Authorizing Provider: KAVYA JACINTO * Telephone Encounter - Rory Aly [facility] - 09/20/2021 9:31 AM EDT Pending Prescriptions: Disp Refills Thiamine HCl 100 MG Oral Tablet (vitamin *90 Tab* Sig: TAKE 1 TABLET BY MOUTH EVERY DAY Vitamin B-12 100 MCG Oral Tablet (vitamin*90 Tab* Sig: TAKE 100 MCG BY MOUTH DAILY. Omeprazole 40 MG Oral Capsule Delayed Rel*30 Cap* Sig: TAKE 1 CAPSULE BY MOUTH DAILY. 1 HOUR BEFORE THE FIRST MEAL OF THE DAY Signed Prescriptions: Disp Refills Spiriva Respimat 1.25 MCG/ACT Inhalation A*12 g 1 Sig: INHALE 2 PUFFS BY MOUTH EVERY DAY Authorizing Provider: KAVYA JACINTO User: RORY ALY * Telephone Encounter - Rory Aly [facility] - 09/20/2021 9:28 AM EDT Omeprazole - Recent initiation. Per documentation pt was only to take for 1 month. Please authorizeadditional refills if pt is to continue with use. [facility]ills for the pended medication(s)per refill protocol. Please approve if appropriate. Thanks, Rory Aly Pharm.D. Clinical Pharmacist [facility] [phone] 09/20/2021, 9:30 AM Pending Prescriptions: Disp Refills Thiamine HCl 100 MG Oral Tablet (vitamin *90 Tab* Sig: TAKE 1 TABLET BY MOUTH EVERY DAY Vitamin B-12 100 MCG Oral Tablet (vitamin*90 Tab* Sig: TAKE 100 MCG BY MOUTH DAILY. Omeprazole 40 MG Oral Capsule Delayed Rel*30 Cap* Sig: TAKE 1 CAPSULE BY MOUTH DAILY. 1 HOUR BEFORE THE FIRST MEAL OF THE DAY Signed Prescriptions: Disp Refills Spiriva Respimat 1.25 MCG/ACT Inhalation A*12 g 1 Sig: INHALE 2 PUFFS BY MOUTH EVERY DAY Authorizing Provider: KAVYA JACINTO Ordering User: RORY ALY Last Visit: 09/18/2021 (in office), Visit date not found (telemedicine) Next Visit: Visit date not found If no future appointments scheduled, and last appointment is greater than a year ago, please schedule patient for a follow-up appointment Last date the medication was ordered: 05/06/21; 11/11/2020; 05/07/2021 [facility]acy: [id number] [facility] Is this request for a controlled substance?No Urine Drug Screen:No results found for this or any previous visit. 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
--- OUTSIDE RECORDS SUMMARY | 2023-04-08 23:10 | External Medical Summary | Summary of Care ---
Author Name Unknown Organization [place] [address] Care Team Providers Care Wafer Polisher Name Role Phone Kavya Dillard Primary Care Provider Encounter Details Date Type Department Care Team Description 08/30/2021 Scan Encounter Family Practice [facility] [address] [facility] [place] [address] Kavya Dillard CRNP 132 [place] [address] <No scans attached> Allergies No known active [...] 0 Active famotidine (PEPCID AC) 10 MG TabletIndications:Gas troesophageal reflux disease with esophagitis Take 1 Tab by mouth 2 times a day. For heartburn 60 Tab 5 06/01/2018 Active Ventolin HFA 108 (90 Base) MCG/ACT Inhalation Aerosol Solution Inhale 2 Puffs by mouth every 4 hours as needed for Wheezing. Brand necessary 54 g 3 08/06/2020 Active Fluticasone-Salmetero l 250-50 MCG/DOSE Inhalation Aerosol Powder Breath Activated (Advair Diskus) 1 Puff. 0 11/16/2017 Active Levalbuterol HCl 1.25 MG/3ML Inhalation Nebulization Solution (Xopenex)Indications: Stage 3 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 ([facility]) INHALE 1 AMPULE VIA NEBULIZER 3 TIMES A DAY. 810 mL 1 03/11/2021 Active oxygen IN GASIndications:Inc to 4LPM with ambulation/exertion 2.5 lpm at rest 3 LPM continuous oxygen with exertion DME: [facility] Indications: Inc to 4LPM with ambulation/exert ion 1 Each 0 04/01/2021 Active predniSONE 1 MG Oral Tablet (Deltasone)Indication s:pt taking half tablet daily 0 03/16/2021 Active Folic Acid 1 MG Oral TabletIndications:Chr onic respiratory failure with hypoxia, on home O2 therapy ([facility]) TAKE 1 TABLET BY MOUTH EVERY DAY 90 Tablet 2 05/08/2021 Active Roflumilast 500 MCG Oral Tablet (Daliresp) Take by mouth 1 Tablet in the morning. 180 Tablet 4 08/25/2021 Active Fluticasone-Salmetero l 250-50 MCG/DOSE Inhalation Aerosol Powder Breath Activated (Advair Diskus)Indications:SO B (shortness of breath) Inhale by mouth 1 Puff in the morning AND 1 Puff before bedtime. Brand necessary. 3 Each 3 09/10/2021 Active documented as of this encounter (statuses [...] Nisreen Jennings CRNP [address] [address] Health Maintenance Due Date Last Done Comments [...] 10/20/2017 LUNG CANCER SCREENING - USE SMARTSET 98525 Completed 06/23/2017 Pneumococcal Vaccine: 65+ Years Completed [...] Documents on File Type Date Recorded Patient Winder Hand Expl anation Advanced Directive service a emelia [...] Directive Advanced Directive Advanced Directive Care Teams Wafer Polisher Relationship Specialty Start Date End Date Kavya Dillard CRNP [address] [facility] [place] [address] PCP - General Nurse Practitioner 12/31/20 documented as of this encounter
--- OUTSIDE RECORDS SUMMARY | 2023-04-08 23:10 | External Medical Summary ---
Author Name Unknown Address Unknown Organization [id number]:LABORATORY [facility] [place] - [address] [facility] [address] Laboratory Report Ordering Provider Test Date Status ORVILLE SMITH 09/18/2021 15:57:31 Final Observation Date Value Abnormality Reference (Units ) Status SYNC LEUKOCYTES IN BLOOD BY AUTOMATED COUNT 09/18/2021 15:57:31 6.84 4.00-10.80 (K/uL) Final Segs 09/18/2021 15:57:31 66.2 40.0-75.0 (%) Final Lymphs % 09/18/2021 15:57:31 22.4 18.0-42.0 (%) Final Monos 09/18/2021 15:57:31 6.9 1.0-11.0 (%) Final Eosinophils 09/18/2021 15:57:31 3.5 0.0-6.0 (%) Final Basos 09/18/2021 15:57:31 0.3 0.0-2.0 (%) Final Immature Granulocyte, Percent 09/18/2021 15:57:31 0.7 0.0-2.0 (%) Final Absolute Segs 09/18/2021 15:57:31 4.53 1.80-7.70 (K/uL) Final Lymphs, absolute 09/18/2021 15:57:31 1.53 1.00-4.80 (K/ul) Final Monos, Abs 09/18/2021 15:57:31 0.47 0.00-1.10 (K/uL) Final Eos, Abs 09/18/2021 15:57:31 0.24 0.00-0.70 (K/uL) Final Basos, Abs 09/18/2021 15:57:31 0.02 0.00-0.20 (K/uL) Final Immature Granulocytes, Number 09/18/2021 15:57:31 0.05 0.00-0.20 (K/uL) Final Performing Location LABORATORY [facility] [place] - [address] [facility] [address]
--- OUTSIDE RECORDS SUMMARY | 2023-04-08 23:10 | External Medical Summary | Summary of Care ---
Author Name Unknown Organization [place] [address] Care Team Providers Care Insulation Blower Name Role Phone Kavya Dillard Yoanna GARRETT Primary Care Provider Encounter Details Date Type Department Care Team Description 08/24/2021 Result Scan Unspecified Department <No scans attached> Allergies No known active [...] continuous oxygen with exertion DME: [facility] Indications: Inc to 4LPM with ambulation/exert ion [...] Office Visit Gastroenterology Nisreen Jennings CRNP [address] [place] [address] Health Maintenance Due Date Last Done Comments [...] 10/20/2017 LUNG CANCER SCREENING - USE SMARTSET 04602 Completed 06/23/2017 Pneumococcal Vaccine: 65+ Years Completed [...] Procedure Name Priority Date/Time Associated Diagnosis Comments ECHOCARDIOLOGY SCANNED RESULT 08/24/2021 documented in this encounter Results * ECHOCARDIOLOGY SCANNED RESULT (08/24/2021) Specimen Narrative documented in this encounter Advance Directives Documents on File Type Date Recorded Patient Per Diem Physical Therapist Expl anation Advanced Directive service a emelia [...] Directive Advanced Directive Advanced Directive Care Teams Insulation Blower Relationship Specialty Start Date End Date Kavya Dillard CRNP [address] [facility] [place] [address] PCP - General Nurse Practitioner 12/31/20 documented as of this encounter
--- OUTSIDE RECORDS SUMMARY | 2023-04-08 23:10 | External Medical Summary | Summary of Care ---
Author Name Unknown Organization [place] [address] Care Team Providers Care Cloth Doffer Name Role Phone Kavya Dillard Primary Care Provider Encounter Details Date Type Department Care Team Description 09/27/2021 Scan Encounter Family Practice [facility] [address] [employer] [place] [address] Kavya Dillard CRNP [address] [place] [address] <No scans attached> Allergies No known active [...] LPM continuous oxygen with exertion DME: 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
--- OUTSIDE RECORDS SUMMARY | 2023-04-08 23:10 | External Medical Summary ---
Author Name Unknown Address Unknown Organization K01:[facility] [place] [address] [facility] [place] [address] Laboratory Report Ordering Provider Test Date Status ORVILLE SMITH 09/18/2021 15:57:31 Final Observation Date Value Abnormality Reference (Units ) Status BUN 09/18/2021 15:57:31 10 6-20 (mg/dL) Final Creatinine 09/18/2021 15:57:31 0.8 0.6-1.2 (mg/dL) Final Glomerular filtration rate/1.73 sq M.predicted [Volume Rate/Area] in Serum, Plasma or Blood by Creatinine-based formula (CKD-EPI) 09/18/2021 15:57:31 >90 >=60 (mL/min) Final eGFR is calculated based on the CKD-EPI 2020 equation Sodium 09/18/2021 15:57:31 145 135-146 (m mol/L) Final Potassium 09/18/2021 15:57:31 3.7 3.5-5.1 (m mol/L) Final Cl 09/18/2021 15:57:31 109 Above high normal 98 -107 (mmol/L) Final CO2 09/18/2021 15:57:31 27 22-32 (mmo l/L) Final Anion gap 09/18/2021 15:57:31 9 7-15 (mmol /L) Final Glucose 09/18/2021 15:57:31 100 70-120 (mg /dL) Final Albumin 09/18/2021 15:57:31 3.2 Below low normal 3.8 -5.0 (g/dL) Final AST (Aspartate aminotransferase) 09/18/2021 15:57:31 22 10-50 (U/L) Fin al Alk Phos 09/18/2021 15:57:31 94 35-130 (U/ L) Final Bilirubin, Total 09/18/2021 15:57:31 <0.2 <=1 .2 (mg/dL) Final Calcium 09/18/2021 15:57:31 8.7 8.4-10.2 ( mg/dL) Final Protein 09/18/2021 15:57:31 5.2 Below low normal 6.0 -8.3 (g/dL) Final ALT (Alanine aminotransferase) 09/18/2021 15:57:31 14 10-50 (U/L) Varghese nixon Performing Location [facility] - [facility] [address] [facility] [address]
--- OUTSIDE RECORDS SUMMARY | 2023-04-08 23:10 | External Medical Summary ---
Author Name Unknown Address Unknown Organization K01:LABORATORY [place] [address] [facility] [address] Laboratory Report Ordering Provider Test Date Status ORVILLE SMITH 09/18/2021 15:57:31 Final Observation Date Value Abnormality Reference (Units ) Status WBC, Total 09/18/2021 15:57:31 6.84 4.00-10.80 (K/uL) Final RBC 09/18/2021 15:57:31 3.50 Below low normal 4.50-5.25 (M/uL) Final Hemoglobin 09/18/2021 15:57:31 11.0 Below low normal 14.0-16.8 (g/dL) Final HCT 09/18/2021 15:57:31 33.9 Below low normal 40.0-48.4 (%) Final MCV 09/18/2021 15:57:31 96.9 82.0-99.5 (fL) Final MCH 09/18/2021 15:57:31 31.4 27.0-34.0 (pg) Final MCHC 09/18/2021 15:57:31 32.4 32.0-36.0 (g/dL) Final RDW 09/18/2021 15:57:31 13.2 11.5-15.5 (%) Final MPV 09/18/2021 15:57:31 9.8 6.6-11.1 (fL) Final Nucleated erythrocytes/100 leukocytes [Ratio] in Blood by Automated count 09/18/2021 15:57:31 0 <=0 (/100 WBCs) Final Platelets 09/18/2021 15:57:31 375 140-400 (K/uL) Final Performing Location [facility] [place] [address] [facility] [address]
--- OUTSIDE RECORDS SUMMARY | 2023-04-08 23:10 | External Medical Summary | Summary of Care ---
Author Name Unknown Organization [place] [address] Care Team Providers Care Special Delivery Carrier Name Role Phone Kavya Dillard GARRETT Primary Care Provider Reason for Visit * Reason Onset Date Comments Advice 09/25/2021 Encounter Details Date Type Department Care Team Description 09/25/2021 Golf Course Architect Telephone Care Coordination [address], [place] [id number] Rahel Akhtar, bank vault attendant Allergies No known active allergiesdocumented as of this encounter (statuses as of 09/26/2021) Medications Medication Sig Dispensed Refills Start Date [...] by GOLD classification ([facility]) INHALE 1 AMPULE VIA NEBULIZER 3 TIMES A DAY. 810 mL 1 03/11/2021 Active oxygen IN GASIndications:Inc to 4LPM with ambulation/exertion 2.5 lpm at rest 3 LPM continuous oxygen with exertion DME: [facility] Indications: Inc to 4LPM with ambulation/exertion 1 Each 0 04/01/2021 Active predniSONE 1 MG Oral Tablet (Deltasone)Indicati ons:pt taking half tablet daily 0 03/16/2021 Active Folic Acid 1 MG Oral TabletIndications:C hronic respiratory failure with hypoxia, on home O2 therapy ([facility]) TAKE 1 TABLET BY MOUTH [...] Respimat 1.25 MCG/ACT Inhalation Aerosol Solution (Tiotropium [place] Monohydrate) INHALE 2 PUFFS BY MOUTH EVERY [...] DAY 30 Capsule 3 09/22/2021 Active Ipratropium [place] 0.02 % Inhalation Solution (Atrovent)Indicatio ns:Stage 3 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 ([facility]) Inhale via nebulizer 2.5 mL in the morning AND 2.5 mL at noon AND 2.5 mL before bedtime. Diagnosis code J44.9 Stage 3 Sever COPD by Gold classification [facility]. Diagnosis code J96.11 Chronic Resp Failure with hypoxia on home oxygen therapy.. 270 mL 4 09/23/2021 Active documented as of this encounter (statuses as of 09/26/2021) Active Problems Problem Noted Date Atrial fibrillation [...] as of this encounter (statuses as of 09/26/2021) Resolved Problems Problem Noted Date Resolved Date [...] as of this encounter (statuses as of 09/26/2021) Immunizations Name Administration Dates Next Due PPD [...] * Telephone Encounter - GARRETT Smith - 09/26/2021 10:59 AM EDT I have never seen this patient, agree that appointment is the next step GARRETT Colon 09/26/2021 11:00 AM * Telephone Encounter - JAH Jimenez - 09/26/2021 9:01 AM EDT Spoke with son Dimitri - he is going to check with the pt first before scheduling. He will call back when they find out what works best. * Telephone Encounter - Jossie Zavala LPN - 09/25/2021 5:59 PM EDT Assist in scheduling appointment with any provider for 40 mins * Telephone Encounter - GARRETT Root - 09/25/2021 5:10 PM EDT NEEDS APPT- any provider- 40 minutes * Telephone Encounter - Rahel Akhtar RN - 09/25/2021 2:16 PM EDT SITUATION: Patient continues to have diarrhea ~2 hours and constant abdominal cramping 9/10 pain Finished vanco ~1 week ago BACKGROUND: [facility] 08/23/21 through 08/30/21 [facility] - pneumonia Treated with antibiotics and subsequentlydeveloped c diff. 08/30-09/11/21 [facility] ASSESSMENT: Very run down- In the BR every 2 hours with runny stools. Constant stomach cramping andat times kidney pain; denied any increased urination, blood or burning. Denied fevers. Often cold. Breathing improved- some cough white sputum. Has an appetite and continues to drink 2 Boost daily asdirected. RECOMMENDATION: Will send to PCP to advice. Encouraged to ensure good hydration and to call with worsening s/s Rahel Akhtar RN Care Coordination [address] [facility] [address] * Telephone Encounter - Rahel Akhtar RN - 09/25/2021 2:01 PM EDT 1. Follow-up Routine 2. Attempted Phone Call First Attempt 3. Call Unanswered Left Voicemail 4. Plan To attempt Follow-up Rahel Akhtar RNtherapy coordinator [phone] documented in this encounter Plan of Treatment Upcoming Encounters Date Type Specialty Care Team Description 10/02/2021 Office Visit Family Medicine Kavya Dillard CRNP [address] [place] [address] 10/29/2021 [facility] [place] [address] Health Maintenance Due Date Last Done Comments [...] 10/20/2017 LUNG CANCER SCREENING - USE SMARTSET [id number] Completed 06/23/2017 Pneumococcal Vaccine: 65+ Years Completed [...] Documents on File Type Date Recorded 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
--- OUTSIDE RECORDS SUMMARY | 2023-04-08 23:10 | External Medical Summary | Summary of Care ---
Author Name Unknown Organization [place] [address] Care Team Providers Care Farm Service Consultant Name Role Phone Kavya Dillard Primary Care Provider Encounter Details Date Type Department Care Team Description 09/27/2021 Scan Encounter Family Practice [facility] [address] [facility] [place] [address] Kavya Dillard CRNP [address] [place] [address] <No scans attached> Allergies No known active [...] 3 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 ([facility]) INHALE 1 AMPULE VIA NEBULIZER 3 TIMES A DAY. 810 mL 1 03/11/2021 Active oxygen IN GASIndications:Inc to 4LPM with ambulation/exertion 2.5 lpm at rest 3 LPM continuous oxygen with exertion DME: [facility] Indications: Inc to 4LPM with ambulation/exertion 1 Each 0 04/01/2021 Active predniSONE 1 MG Oral Tablet (Deltasone)Indicati ons:pt taking half tablet daily 0 03/16/2021 Active Folic Acid 1 MG Oral TabletIndications:C hronic respiratory failure with hypoxia, on home O2 therapy ([facility]) TAKE 1 TABLET BY MOUTH EVERY [...] Respimat 1.25 MCG/ACT Inhalation Aerosol Solution (Tiotropium [place] Monohydrate) INHALE 2 PUFFS BY MOUTH EVERY [...] DAY 30 Capsule 3 09/22/2021 Active Ipratropium [place] 0.02 % Inhalation Solution (Atrovent)Indicatio ns:Stage 3 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 ([facility]) Inhale via nebulizer 2.5 mL in the morning AND 2.5 mL at noon AND 2.5 mL before bedtime. Diagnosis code J44.9 Stage 3 Sever COPD by Gold classification [facility]. 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
--- OUTSIDE RECORDS SUMMARY | 2023-04-08 23:10 | External Medical Summary | Summary of Care ---
Author Name Unknown Organization [place] [address] Care Team Providers Care Cook Frozen Dessert Name Role Phone Kavya Dillard Primary Care Provider Reason for Referral * Evaluate & Treat - Unlimited Visits (Within 10 days (routine)) - Authorized Specialty Diagnoses / Procedures Referred By Nicole cisse Referred To Contact Gastroenterology Diagnoses Clostridium difficile colitis Kavya Dillard CRNP [address] [place] [address] Referral ID Status Reason Start Date Expiration Date Visits Requested Visits Authorized [id number] Authorized Specialty Services Required 09/18/2021 1 1 Question Answer Referral Priority Within 10 days (routine) For what condition is the patient being referred? All Gastro Conditions Comments c DIFF COLITIS Reason for Visit * Reason Comments Hospital Follow-Up Encounter Details Date Type Department Care Team Description 09/18/2021 Office Visit Family [facility] [address] [place] [address] Kavya Dillard CRNP [address] [place] [address] Clostridium difficile colitis*; COPD, group D, by GOLD 2017 classification (HCC); Pulmonary HTN (HCC); Atrial fibrillation, unspecified type (HCC); Chronic respiratory failure with hypoxia, on home O2 therapy ([facility]); Fibrosis of lung ([facility]); Abdominal pain, generalized; Pulmonary cachexia due to chronic obstructive pulmonary disease ([facility]); Elevated troponin I level; Hypomagnesemia Allergies No known active allergiesdocumented as of this encounter (statuses as of 09/23/2021) Medications Medication Sig Dispensed Refills Start Date [...] GOLD classification ([facility]) INHALE 1 AMPULE VIA NEBULIZER 3 TIMES A DAY. 810 mL 1 03/11/20 21 Active oxygen IN GASIndications:Inc to 4LPM with ambulation/exertio n 2.5 lpm at rest 3 LPM continuous oxygen with exertion DME: [facility] Indications: Inc to 4LPM with ambulation/exerti on 1 Each 0 04/01/20 21 Active predniSONE 1 MG Oral Tablet (Deltasone)Indicat ions:pt taking half tablet daily 0 03/16/20 21 Active Folic Acid 1 MG Oral TabletIndications: Chronic respiratory failure with hypoxia, on home O2 therapy ([facility]) TAKE 1 TABLET BY MOUTH EVERY DAY [...] every 6 hours . 0 Active Ipratropium [place] 0.02 % Inhalation Solution (Atrovent)Indicati ons:Stage 3 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 ([facility]) Inhale 2.5 mL via nebulizer 3 times a day. Diagnosis code J44.9 Stage 3 Sever COPD by Gold classification [facility]. Diagnosis code J96.11 Chronic Resp Failure with hypoxia on home oxygen therapy. 270 mL 4 07/25/19 21 022 Discontinued(Re fill) B-12 100 MCG Oral Tablet Take 100 mcg by mouth daily. 30 Tab 11 11/12/19 21 022 Discontinued Spiriva Respimat 1.25 MCG/ACT Inhalation Aerosol Solution (Tiotropium [place] Monohydrate) INHALE 2 PUFFS BY MOUTH EVERY [...] as of this encounter (statuses as of 09/23/2021) Active Problems Problem Noted Date Atrial fibrillation [...] as of this encounter (statuses as of 09/23/2021) Resolved Problems Problem Noted Date Resolved Date [...] as of this encounter (statuses as of 09/23/2021) Immunizations Name Administration Dates Next Due PPD [...] Sign Reading Time Taken Comments Blood Pressure 104/62 09/18/2021 3:08 PM EDT Pulse 76 09/18/2021 3:08 PM EDT Temperature 36.2 C (97.2 F) 09/18/2021 3:08 PM ED T Respiratory Rate - - Oxygen Saturation - - Inhaled Oxygen Concentration - - Weight - - Height - - Body Mass Index - - documented in this encounter Progress Notes * GARRETT Root - 09/18/2021 3:14 PM EDT Follow up Family Medicine Visit CC: Chief Complaint Patient presents with Hospital Follow-Up History of Present Illness: Jer Abreu Jr. is a 80 year old male presenting with His son today for hospital follow up. He was admitted to [facility] for pneumonia. Treated with antibiotics and subsequently developed c diff. He was discharged to [facility] on 08/30/2021 and discharged home on 09/11/2021. +COUGH +PRODUCTIVE OF MUCOUS +SOB IMPROVED FROM BEFORE -NASAL CONGESTION -HEARTBURN Denies dizziness. He is doing 2 times a day. PT is still coming in once weekly. Currently on vancomycin for c diff. Still having diarrhea multiple times per day. It is soft but not watery now. Still having abdominal cramping and bloating. The cramping is present all the time. Denies nausea or vomiting. Umbilical hernia Social History Socioeconomic History Marital status: Spouse name: Not on file Number of children: 6 Years of education: Not on file Highest education level: Not on file Occupational History Not on file Tobacco Use Smoking status: Former Smoker Packs/day: 2.00 Years: 59.00 Pack years: 118.00 Types: Cigarettes Start date: 1954 Quit date: 04/07/2016 Years since quittin.4 Smokeless tobacco: Never Used Tobacco comment: started [...] on file Food Insecurity: No Food Insecurity Worried About Running Out of Food in [...] Acute exacerbation of COPD with asthma ([facility]) 04/23/2017 [facility] Arthritis Edentulous Gastroesophageal reflux disease with esophagitis Herpes zoster 01/11/2019 right neck and scalp Inflammation of sacroiliac joint ([facility]) 04/24/2005 Loss of teeth due to trauma, extraction, or periodontal disease Other abnormal glucose 04/23/2005 glucose 156 Other abnormal glucose 02/22/2008 glucose 167 Other disorders of vitreous 12/2000 Posterior vitreous detachment OS Other specified disorders of rotator cuff syndrome of shoulder and allied disorders 05/2004 right shoulder Pneumonia 06/13/2017 left basal infiltrate Pneumonia due to Pseudomonas ([facility]) 05/20/2017 Severe chronic obstructive pulmonary disease ([facility]) 10/28/2016 severe by ATS criteria. significant response [...] REMOVE CATARACT, INSERT LENS PROSTH Right 06/12/2019 [facility] REMOVE CATARACT, INSERT LENS PROSTH Left 06/26/2019 [facility] Outpatient Medications Marked as Taking for the 09/18/21 encounter (Office Visit) with GARRETT Root Medication Sig Metoprolol Tartrate 12.5 MG OR Tablet Take by mouth 12.5 mg in the morning AND 12.5 mg before bedtime. Potassium Chloride ER 20 MEQ Oral Tablet Extended Release Take by mouth 20 mEq in the morning. Vancomycin HCl 125 MG Oral Capsule (Vancocin) Take by mouth 125 mg every 6 hours . Fluticasone-Salmeterol 250-50 MCG/DOSE Inhalation Aerosol Powder Breath Activated (Advair Diskus) Inhale by mouth 1 Puff in the morning AND 1 Puff before bedtime. Brand necessary. Roflumilast 500 MCG Oral Tablet (Daliresp) Take by mouth 1 Tablet in the morning. Folic Acid 1 MG Oral Tablet TAKE 1 TABLET BY MOUTH EVERY DAY Omeprazole 40 MG Oral Capsule Delayed Release (PriLOSEC) Take 1 Capsule by mouth daily. 1 hour before the first meal of the day Thiamine HCl 100 MG Oral Tablet (vitamin B-1) TAKE 1 TABLET BY MOUTH EVERY DAY predniSONE 1 MG Oral Tablet (Deltasone) oxygen IN GAS 2.5 lpm at rest 3 LPM continuous oxygen with exertion DME: [facility] Indications: Inc to 4LPM with ambulation/exertion Spiriva Respimat 1.25 MCG/ACT Inhalation Aerosol Solution (Tiotropium [place] Monohydrate) INHALE 2 PUFFS BY MOUTH EVERY DAY Levalbuterol HCl 1.25 MG/3ML Inhalation Nebulization Solution (Xopenex) INHALE 1 AMPULE VIA NEBULIZER 3 TIMES A DAY. B-12 100 MCG Oral Tablet Take 100 mcg by mouth daily. Fluticasone-Salmeterol 250-50 MCG/DOSE Inhalation Aerosol Powder Breath Activated (Advair Diskus) 1 Puff. Ventolin HFA 108 (90 Base) MCG/ACT Inhalation Aerosol Solution Inhale 2 Puffs by mouth every 4 hours as needed for Wheezing. Brand necessary Ipratropium [place] 0.02 % Inhalation Solution (Atrovent) Inhale 2.5 mL via nebulizer 3 times aday. Diagnosis code J44.9 Stage 3 Sever COPD by Gold classification [facility]. Diagnosis code J96.11 Chronic Resp Failure with hypoxia on home oxygen therapy. famotidine (PEPCID AC) 10 MG Tablet Take 1 Tab by mouth 2 times a day. For heartburn acetaminophen (TYLENOL) 500 MG Tablet Take 500 [...] Review of Systems Constitutional: Positive for appetite change, fatigue and unexpected weight change. Negative for chills, diaphoresis and fever. Respiratory: Positive for cough, chest tightness, shortness of breath and wheezing. Cardiovascular: Positive for palpitations. Negative for chest pain and leg swelling. Gastrointestinal: Positive for abdominal pain and diarrhea. Negative for nausea and vomiting. Neurological: Negative for dizziness and syncope. Psychiatric/Behavioral: Negative for sleep disturbance. Physical Exam: BP 104/62 (BP Site: Left Arm, BP Position: Sitting, BP Cuff Size: Regular) | Pulse 76 | Temp 36.2 C (97.2 F) (Tympanic) Physical Exam Constitutional: Comments: Lean HENT: Head: Normocephalic. Nose: Nose normal. Mouth/Throat: Mouth: Mucous membranes are moist. Pharynx: Oropharynx is clear. Eyes: Conjunctiva/sclera: Conjunctivae normal. Pupils: Pupils are equal, round, and reactive to light. Cardiovascular: Rate and Rhythm: Normal rate and regular rhythm. Pulmonary: Effort: Pulmonary effort is normal. No tachypnea. Breath sounds: Decreased breath sounds present. Musculoskeletal: General: Normal range of motion. Cervical back: Normal range of motion. Skin: General: Skin is warm and dry. Nails: There is no clubbing. Neurological: General: No focal deficit present. Mental Status: He is alert and oriented to person, place, and time. Psychiatric: Mood and Affect: Mood normal. Behavior: Behavior normal. Thought Content: Thought content normal. Judgment: Judgment normal. Chest x ray 08/23/2021- emphysema, no pna Echo: 08/24/2021: RV mildly dilated, AV sclerosis, Grad 1 Diastolic dysfunction grade 1 Respiratory sputum culture grew: Corynebacterium species Also grew Pseudomonas aeruginosa Blood cultures negative Assessment and Plan: 1. COPD, group D, by GOLD 2017 classification ([facility]) Recent acute on chronic flare with pna requiring hospitalization. Treated with solumedrol, azithromycin and bronchodilator Chest x ray 08/23/2021- no pna 2. Pulmonary HTN ([facility]) No evidence on recent ECHo 3. Atrial fibrillation, unspecified type ([facility]) Rate controlled 4. Chronic respiratory failure with hypoxia, on home O2 therapy ([facility]) Recent Acute on chronic respiratory failure Continue oxygen 24/ 2-3LPM 5. Fibrosis of lung ([facility]) 6. Clostridium difficile colitis On vancomycin Referral to GI - GASTROENTEROLOGY REFERRAL OP Still having diarrhea but less now, pain is improved 7. Abdominal pain, generalized Pain improved - COMPREHENSIVE METABOLIC PANEL; Future - CBC WITH WBC DIFFERENTIAL; Future 8. 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 Elevated troponin I level Suspected due to demand ischemia 10. Hypomagnesemia Corrected in ED I have advised the patient to call [...] [facility] [place] documented in this encounter Nursing Notes * Shannan Posey LPN - 09/18/2021 3:07 PM EDT The patient has been properly identified by confirmation of name and date of . Chief Complaint Patient presents with Hospital Follow-Up documented in this encounter Plan of Treatment Upcoming Encounters Date Type Specialty Care Team Description 10/02/2021 Office Visit Family Medicine Kavya Dillard CRNP [address] [place] [address] 10/29/2021 Office Visit Gastroenterology Nisreen Jennings CRNP [address] [place] [address] Scheduled Referrals Name Type Priority Associated Diagnoses [...] 10/20/2017 LUNG CANCER SCREENING - USE SMARTSET [id number] Completed 06/23/2017 Pneumococcal Vaccine: 65+ Years Completed [...] encounter Results * (ABNORMAL) COMPREHENSIVE METABOLIC PANEL (09/18/2021 3:57 PM EDT) BUN 10 6 - 20 mg/dL [facility] Creatinine 0.8 0.6 - 1.2 mg/dL [facility] Estimated Glomerular Filtration Rate >90Comment:eGFR is calculated based on the CKD-EPI 2020 equation >=60 mL/min [facility] Sodium 145 135 - 146 mmol/L [facility] Potassium 3.7 3.5 - 5.1 mmol/L [facility] Chloride 109(H) 98 - 107 mmol/L [facility] CO2 27 22 - 32 mmol/L [facility] Anion Gap 9 7 - 15 mmol/L [facility] Glucose 100 70 - 120 mg/dL [facility] Albumin 3.2(L) 3.8 - 5.0 g/dL [facility] AST 22 10 - 50 U/L [facility] Alkaline Phosphatase 94 35 - 130 U/L [facility] Bilirubin, Total <0.2 <=1.2 mg/dL [facility] Calcium 8.7 8.4 - 10.2 mg/dL [facility] Protein 5.2(L) 6.0 - 8.3 g/dL [facility] ALT 14 10 - 50 U/L [facility] Specimen Blood - Venous blood specime n (specimen) [facility] [address] [place] [address] documented in this encounter Visit Diagnoses Diagnosis Clostridium difficile colitis- Primary Intestinal infection due to clostridium difficile COPD, group D, by GOLD 2017 classification (HCC) Pulmonary HTN (HCC) Other chronic pulmonary heart diseases Atrial fibrillation, unspecified type (HCC) Chronic respiratory failure with hypoxia, on home O2 therapy (HCC) 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 Abdominal pain, generalized 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
--- OUTSIDE RECORDS SUMMARY | 2023-04-08 23:10 | External Medical Summary | Summary of Care ---
Author Name Unknown Organization [place] [address] Care Team Providers Care Chemical Laboratory Assistant Name Role Phone Kavya Jacinto GARRETT Primary Care Provider Reason for Visit * Reason Onset Date Comments Medication Refill 09/22/2021 Encounter Details Date Type Department Care Team Description 09/22/2021 Refill Family Practice 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 For heartburn 60 Tab 5 8 Active Ventolin HFA 108 (90 Base) MCG/ACT Inhalation Aerosol Solution Inhale 2 Puffs by mouth every 4 hours as needed for Wheezing. Brand necessary 54 g 3 1 Active Fluticasone-[place] rol 250-50 MCG/DOSE Inhalation Aerosol Powder Breath Activated (Advair Diskus) 1 Puff. 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 810 mL 1 1 Active oxygen IN GASIndications:Inc to 4LPM with ambulation/exertion 2.5 lpm at rest 3 LPM continuous oxygen with exertion DME: [facility] Indications: Inc to 4LPM with ambulation/exertio n 1 Each 0 1 Active predniSONE 1 MG Oral Tablet (Deltasone)Indicati ons:pt taking half tablet daily 0 1 Active Folic Acid 1 MG Oral TabletIndications:C hronic respiratory failure with hypoxia, on home O2 therapy ([facility]) TAKE 1 TABLET BY MOUTH [...] Brand necessary. 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 Diagnosis code J44.9 Stage 3 Sever COPD by Gold classification [facility]. Diagnosis code J96.11 Chronic Resp Failure with hypoxia on home oxygen therapy.. 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 Diagnosis code J44.9 Stage 3 Sever COPD by Gold classification [facility]. Diagnosis code J96.11 Chronic Resp Failure with hypoxia on home oxygen therapy. 270 mL 4 1 09/23/19 22 Discontinu ed(Refill) documented as of this [...] * Telephone Encounter - GARRETT Root - 09/23/2021 8:04 AM EDT Signed Prescriptions: Disp Refills Ipratropium [place] 0.02 % Inhalation Solu*270 mL 4 Sig: Inhale via nebulizer 2.5 mL in the morning AND 2.5 mL at noon AND 2.5 mL before bedtime. Diagnosis code J44.9 Stage 3 Sever COPD by Gold classification HCC. Diagnosis code J96.11 Chronic Resp Failure with hypoxia on home oxygen therapy.. Authorizing Provider : KAVYA JACINTO * Telephone Encounter - Ana Bynum LPN - 09/23/2021 8:04 AM EDT Pending Prescriptions: Disp Refills Ipratropium [place] 0.02 % Inhalation Yoselin*270 mL 4 Sig: Inhale via nebulizer 2.5 mL in the morning AND 2.5 mL at noon AND 2.5 mL before bedtime. Diagnosis code J44.9 Stage 3 Sever COPD by Gold classification HCC. Diagnosis code J96.11 Chronic Resp Failure with hypoxia on home oxygen therapy.. - * Telephone Encounter - Marcela Damon CPhT - 09/22/2021 6:12 PM EDT Pending Prescriptions: Disp Refills Ipratropium [place] 0.02 % Inhalation Yoselin*270 mL 4 Sig: Inhale via nebulizer 2.5 mL in the morning AND 2.5 mL at noon AND 2.5 mL before bedtime. Diagnosis code J44.9 Stage 3 Sever COPD by Gold classification HCC. Diagnosis code J96.11 Chronic Resp Failure with hypoxia on home oxygen therapy.. Last Visit: 09/18/2021 (in office), Visit date not found (telemedicine) Next Visit: 10/02/2021 If no future appointments scheduled, and last appointment is greater than a year ago, please schedule patient for a follow-up appointment Last date the medication was ordered: 07/25/20 Pharmacy: [id number] [address] [facility] Is this request for a controlled [...] Description 10/02/2021 Office Visit Family Medicine Kavya Jacinto CRNP [address] [place] [address] 10/29/2021 Office Visit Gastroenterology Nisreen Jennings CRNP [address] [place] [address] Health Maintenance Due Date Last Done Comments [...] 10/20/2017 LUNG CANCER SCREENING - USE SMARTSET 95385 Completed 06/23/2017 Pneumococcal Vaccine: 65+ Years Completed [...] Documents on File Type Date Recorded 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 [place] [address] PCP - General Nurse Practitioner 12/31/20 documented as of this encounter
--- OUTSIDE RECORDS SUMMARY | 2023-04-08 23:10 | External Medical Summary | Summary of Care ---
Author Name Unknown Organization [place] [address] Care Team Providers Care Electrical Helper Name Role Phone Kavya Dillard Primary Care Provider Encounter Details Date Type Department Care Team Description 09/29/2021 Orders Only Family Practice [facility] [address] [facility] [place] [address] Kavya Dillard CRNP [address] [place] [address] Allergies No known active allergiesdocumented as of [...] Health Network Indications: Inc to 4LPM with ambulation/exertion 1 Each 0 04/01/2021 Active predniSONE 1 MG Oral Tablet (Deltasone)Indicati ons:pt taking half tablet daily 0 03/16/2021 Active Folic Acid 1 MG Oral TabletIndications:C hronic respiratory failure with hypoxia, on home O2 therapy ([facility]) TAKE 1 TABLET BY MOUTH [...] Respimat 1.25 MCG/ACT Inhalation Aerosol Solution (Tiotropium [place] Monohydrate) INHALE 2 PUFFS BY MOUTH [...] DAY 30 Capsule 3 09/22/2021 Active Ipratropium [place] 0.02 % Inhalation Solution (Atrovent)Indicatio ns:Stage [...] Gastroenterology Nisreen Jennings CRNP [address] [place] [address] Health Maintenance Due Date Last Done Comments [...] 10/20/2017 LUNG CANCER SCREENING - USE SMARTSET 60152 Completed 06/23/2017 Pneumococcal Vaccine: 65+ Years Completed [...] Procedure Name Priority Date/Time Associated Diagnosis Comments CHEMISTRY-OUTSIDE Routine 08/30/2021 documented in this encounter Results * (ABNORMAL) CHEMISTRY-OUTSIDE (08/30/2021) CREATININE-OUTSIDE LAB 0.81 0.6 - 1.4 MG/DL OUTSIDE LAB (SEE SCANNED REPORT) EGFR-OUTSIDE LAB 85.1 ML/MIN OUTSIDE LAB (SEE SCANNED REPORT) POTASSIUM-OUTSIDE LAB 3.2(A) 3.5 - 5.1 MMOL/L OUTSIDE LAB (SEE SCANNED REPORT) GLUCOSE-OUTSIDE LAB 89 70 - 99 MG/DL OUTSIDE LAB (SEE SCANNED REPORT) HOURS FASTING OUTSIDE LAB (S EE SCANNED REPORT) TRIGLYCERIDES-OUTSIDE LAB OUTSIDE LAB (SEE SCANNED REPORT) CHOLESTEROL-OUTSIDE LAB OUTSIDE LAB (SEE SCANNED REPORT) HDL-OUTSIDE LAB OUTSIDE LAB (SEE SCANNED REPORT) CHOL/HDL RATIO-OUTSIDE LAB OUTSIDE LAB (SEE SCANNED REPORT) LDL (CALCULATED)-OUTSIDE LAB OUTSIDE LAB (SEE SCANNED REPORT) LDL (DIRECT MEASURE)-OUTSIDE LAB OUTSIDE LAB (SEE SCANNED REPORT) HEMOGLOBIN, [id number] LAB OUTSIDE LAB (SEE SCANNED REPORT) PHOSPHORUS-OUTSIDE LAB OUTSIDE LAB (SEE SCANNED REPORT) PTH-OUTSIDE LAB OUTSIDE LAB (SEE SCANNED REPORT) MICROALBUMIN RATIO-OUTSIDE LAB OUTSIDE LAB (SEE SCANNED REPORT) PROTEIN, UA-OUTSIDE LAB OUTSIDE LAB (SEE SCANNED REPORT) HEMOGLOBIN-OUTSIDE LAB OUTSIDE LAB (SEE SCANNED REPORT) CHEMISTRY COMMENT-OUTSIDE LAB Comment:CMP , INHOUSE LABS 08-23-21 TO 08-30-21 - SEE SCAN OUTSIDE LAB (SEE SCANNED REPORT) Specimen Narrative OUTSIDE LAB (SEE SCANNED REPORT) documented in this encounter Advance Directives Documents on File Type Date Recorded Patient Dinkey Engineer Expl anation Advanced Directive service a [...] Advanced Directive Advanced Directive Care Teams Electrical Helper Relationship Specialty Start Date End Date Kavya Dillard CRNP [address] [facility] [place] [address] PCP - General Nurse Practitioner 12/31/20 documented as of this encounter
--- OUTSIDE RECORDS SUMMARY | 2023-04-08 23:10 | External Medical Summary | Summary of Care ---
Author Name Unknown Organization [place] [address] Care Team Providers Care Facility Rehab Director Name Role Phone Kavya Dillard Primary Care Provider Encounter Details Date Type Department Care Team Description 09/29/2021 Orders Only Family Practice [facility] 132 [facility] [place] [address] Kavya Dillard CRNP 132 [place] [address] Allergies No known active allergiesdocumented as of [...] continuous oxygen with exertion DME: [facility] Indications: Inc to 4LPM with [...] Respimat 1.25 MCG/ACT Inhalation Aerosol Solution (Tiotropium [place] Monohydrate) INHALE 2 PUFFS BY MOUTH [...] DAY 30 Capsule 3 09/22/2021 Active Ipratropium [place] 0.02 % Inhalation Solution (Atrovent)Indicatio ns:Stage [...] Nisreen Jennings CRNP [address] [place] [address] Health Maintenance Due Date Last Done Comments [...] 10/20/2017 LUNG CANCER SCREENING - USE SMARTSET 85686 Completed 06/23/2017 Pneumococcal Vaccine: 65+ Years Completed [...] Procedure Name Priority Date/Time Associated Diagnosis Comments XR CHEST 1 VIEW Routine 08/23/2021 documented in this encounter Results * XR CHEST 1 VIEW (08/23/2021) Anatomical Region Laterality Modality Chest Other Specimen Narrative OUTSIDE LAB (SEE SCANNED REPORT) documented in this encounter Advance Directives Documents on File Type Date Recorded Patient Communications Controller Expl anation Advanced Directive service a emelia [...] Directive Advanced Directive Advanced Directive Care Teams Facility Rehab Director Relationship Specialty Start Date End Date Kavya Dillard CRNP [address] [place] [address] PCP - General Nurse Practitioner 12/31/20 documented as of this encounter
--- OUTSIDE RECORDS SUMMARY | 2023-04-08 23:10 | External Medical Summary | Summary of Care ---
Author Name Unknown Organization [place] [address] Care Team Providers Care Solar Field Installation Crew Member Name Role Phone Kavya Dillard GARRETT Primary Care Provider Reason for Visit * Reason Comments Outpatient Testing Encounter Details Date Type Department Care Team Description 09/18/2021 Laboratory Laboratory, [facility] [address] [place] [address] [facility] [address] [place] [address] Abdominal pain, generalized Allergies No known active allergiesdocumented as of this encounter (statuses as of 09/18/2021) Medications Medication Sig Dispensed Refills Start Date [...] For heartburn 60 Tab 5 06/01/2018 Active Ipratropium [place] 0.02 % Inhalation Solution (Atrovent)Indicatio ns:Stage 3 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 ([facility]) Inhale 2.5 mL via nebulizer 3 times a day. Diagnosis code J44.9 Stage 3 Sever COPD by Gold classification [facility]. Diagnosis code J96.11 Chronic Resp Failure with hypoxia on home oxygen therapy. 270 mL 4 07/25/2020 Active Ventolin HFA 108 (90 Base) MCG/ACT Inhalation Aerosol Solution Inhale 2 Puffs by mouth every 4 hours as needed for Wheezing. Brand necessary 54 g 3 08/06/2020 Active Fluticasone-[place]met[place] rol 250-50 MCG/DOSE Inhalation Aerosol Powder Breath Activated (Advair Diskus) 1 Puff. 0 11/16/2017 Active B-12 100 MCG Oral Tablet Take 100 mcg by mouth daily. 30 Tab 11 11/11/2020 Active Levalbuterol HCl 1.25 MG/3ML Inhalation Nebulization Solution (Xopenex)Indication s:Stage 3 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 ([facility]) INHALE 1 AMPULE VIA NEBULIZER 3 TIMES A DAY. 810 mL 1 03/11/2021 Active Spiriva Respimat 1.25 MCG/ACT Inhalation Aerosol Solution (Tiotropium [place] Monohydrate) INHALE 2 PUFFS BY MOUTH EVERY DAY 12 g 1 03/20/2021 Active oxygen IN GASIndications:Inc to 4LPM with ambulation/exertion 2.5 lpm at rest 3 LPM continuous oxygen with exertion DME: [facility] Indications: Inc to 4LPM with ambulation/exertion 1 Each 0 04/01/2021 Active predniSONE 1 MG Oral Tablet (Deltasone)Indicati ons:pt taking half tablet daily 0 03/16/2021 Active Thiamine HCl 100 MG Oral Tablet (vitamin B-1) TAKE 1 TABLET BY MOUTH EVERY DAY 90 Tablet 1 05/06/2021 Active Omeprazole 40 MG Oral Capsule Delayed Release (PriLOSEC) Take 1 Capsule by mouth daily. 1 hour before the first meal of the day 30 Capsule 0 05/07/2021 Active Folic Acid 1 MG Oral TabletIndications:C hronic respiratory failure with hypoxia, on home O2 therapy ([facility]) TAKE 1 TABLET BY MOUTH [...] mg every 6 hours . 0 Active documented as of this encounter (statuses as of 09/18/2021) Active Problems Problem Noted Date Atrial fibrillation [...] as of this encounter (statuses as of 09/18/2021) Resolved Problems Problem Noted Date Resolved Date [...] as of this encounter (statuses as of 09/18/2021) Immunizations Name Administration Dates Next Due PPD [...] as of this encounter Plan of Treatment Pending Results Name Type Priority Associated Diagnoses Date /Time COMPREHENSIVE METABOLIC PANEL Lab Routine Abdominal pain, generalized 09/18/2021 3:57 PM EDT CBC WITH WBC DIFFERENTIAL Lab Routine Abdominal pain, generalized 09/18/2021 3:57 PM EDT CBC Lab Routine Abdominal pain, generalized 09/18/2021 3:57 PM EDT DIFFERENTIAL, AUTOMATED Lab Routine Abdominal pain, generalized 09/18/2021 3:57 PM EDT Health Maintenance Due Date Last Done Comments Zoster Vaccines (1 of 2) 1992 *ADVANCE DIRECTIVE NOT ON FILE 09/25/2020 Depression Screening, Annual for Pts 12 and Over 11/12/2020 11/13/2019 COVID-19 Vaccine (3 - Booster for Moderna series) 06/26/2021 01/24/2021, 10/07/2020 O2 ASSESSMENT COMPLETED IN PAST YEAR FOR COPD 04/01/2022 04/01/2021 DIABETES SCREEN EVERY 3 YRS-AGE 45 AND ABOVE 09/10/2024 09/10/2021, 09/09/2021, 09/08/2021, Additional history exists DTaP,Tdap,and Td Vaccines (2 - Td or Tdap) 10/21/2027 10/20/2017 LUNG CANCER SCREENING - USE SMARTSET 89653 Completed 06/23/2017 Pneumococcal Vaccine: 65+ Years Completed [...] as of this encounter Visit Diagnoses Diagnosis Abdominal pain, generalized documented in this encounter Advance Directives Documents on File Type Date Recorded Patient Art Department Head Expl anation Advanced Directive service a [...] Directive Advanced Directive Advanced Directive Care Teams Solar Field Installation Crew Member Relationship Specialty Start Date End Date Kavya Dillard CRNP [address] [place] [address] PCP - General Nurse Practitioner 12/31/20 documented as of this encounter
--- OUTSIDE RECORDS SUMMARY | 2023-04-08 23:11 | External Medical Summary | Summary of Care ---
Author Name Unknown Organization [place] [address] Care Team Providers Care Admissions Nurse Name Role Phone Kavya Dillard Primary Care Provider Reason for Visit * Reason Onset Date Comments Advice 09/10/2021 Requesting a anthony l from Nurse Bianchi only Status Check 09/10/2021 Encounter Details Date Type Department Care Team Description 09/10/2021 Telephone [facility] [address] [facility] [address] Advice (Requesting a call from Nurse Bianchi... Allergies No known active allergiesdocumented as of this encounter (statuses as of 09/12/2021) Medications Medication Sig Dispensed Refills Start Date [...] heartburn 60 Tab 5 06/01/2018 Active Ipratropium [place] 0.02 % Inhalation Solution (Atrovent)Indicatio ns:Stage 3 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 ([facility]) Inhale 2.5 mL via nebulizer [...] GOLD classification ([facility]) INHALE 1 AMPULE VIA NEBULIZER 3 TIMES A DAY. 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 Please copy for patient record. Please notify patient family for fern picker and fax if needed. Randy, AMBER, GARRETT [facility] * Telephone Encounter - JAH Vanegas - 09/12/2021 12:30 PM EDT Patient calling in to check on the status of previous message. * Telephone Encounter - JAH Newman - 09/12/2021 11:00 AM EDT Patient's daughter, Alexandr, is calling in to check on the status of previous message. She stated that this paperwork is due on 09/15/2021, and must be sent back by today. She wants a call back to know status of the refill forms is as soon as possible. Please advise [phone] * Telephone Encounter - DEBBIE Wood ASSIST - 09/11/2021 6:02 PM EDT Patient's daughter, Nubia, stopped in office asking for Assistance program refill forms be completed. [employer] form for Advair needs a 3 months supply with a year's worth of refills. [place] form needs Daliresp 3 month supply with a years worth of refills. Please inform son-in-law Daniel when this is completed. His phone number is [phone]. * Telephone Encounter - JAH Espinoza - 09/11/2021 9:20 AM EDT Pls see below Requesting a call from Nurse Bianchi only No other info , she did not want to leave any other info * Telephone Encounter - JAH Griffin - 09/10/2021 6:15 PM EDT Alexandr daughter requesting a call from nurse Tash only. Alexandr - [phone]. documented in this encounter Plan of Treatment Upcoming Encounters Date Type Specialty Care Team Description 09/18/2021 Office Visit Family Medicine Kavya Dillard CRNP [address] [facility] [place] [address] Health Maintenance Due Date Last Done Comments [...] 10/20/2017 LUNG CANCER SCREENING - USE SMARTSET 268[address] Completed 06/23/2017 Pneumococcal Vaccine: 65+ Years Completed [...] on File Type Date Recorded Patient Field Marketing Director Expl anation Advanced Directive service a [...] Directive Advanced Directive Advanced Directive Care Teams Admissions Nurse Relationship Specialty Start Date End Date Kavya Dillard CRNP [address] [facility] [place] [address] PCP - General Nurse Practitioner 12/31/20 documented as of this encounter
--- OUTSIDE RECORDS SUMMARY | 2023-04-08 23:11 | External Medical Summary ---
Author Name Unknown Address Unknown Organization K09:[facility] [place] [address] Laboratory Report Ordering Provider Test Date Status DAWN CARR 09/10/2021 05:31:00 Final Observation Date Value Abnormality Reference (Units ) Status BUN 09/10/2021 05:31:00 16 6-20 (mg/dL) Final Creatinine 09/10/2021 05:31:00 0.8 0.6-1.2 (mg/dL) Final Glomerular filtration rate/1.73 sq M.predicted [Volume Rate/Area] in Serum, Plasma or Blood by Creatinine-based formula (CKD-EPI) 09/10/2021 05:31:00 89 >=60 (mL/min) Final eGFR is calculated based on the CKD-EPI 2020 equation Sodium 09/10/2021 05:31:00 147 Above high normal 13 5-146 (mmol/L) Final Potassium 09/10/2021 05:31:00 3.0 Below low normal 3.5 -5.1 (mmol/L) Final Cl 09/10/2021 05:31:00 111 Above high normal 98 -107 (mmol/L) Final CO2 09/10/2021 05:31:00 25 22-32 (mmo l/L) Final Anion gap 09/10/2021 05:31:00 11 7-15 (mmol /L) Final Glucose 09/10/2021 05:31:00 83 70-120 (mg /dL) Final Calcium 09/10/2021 05:31:00 8.1 Below low normal 8.4 -10.2 (mg/dL) Final Performing Location [facility] [place] [address]
--- OUTSIDE RECORDS SUMMARY | 2023-04-08 23:11 | External Medical Summary | Summary of Care ---
Author Name Unknown Organization [place] [address] Care Team Providers Care Cigarette Book Maker Name Role Phone Kavya Jacinto Primary Care Provider Reason for Visit * Reason Onset Date Comments Medication Refill 08/28/2021 Medication Refill 09/09/2021 Encounter Details Date Type Department Care Team Description 08/22/2021 Refill Family Practice [facility] [address] [place] [address] Kavya Jacinto CRNP [address] [place] [address] SOB (shortness of breath) Allergies No known active allergiesdocumented as of this encounter (statuses as of 09/10/2021) Medications Medication Sig Dispensed Refills Start Date [...] For heartburn 60 Tab 5 8 Active Ipratropium Alvarado 0.02 % Inhalation Solution (Atrovent)Indicatio ns:Stage 3 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 Diagnosis code J44.9 Stage 3 Sever COPD by Gold classification [facility]. Diagnosis code J96.11 Chronic Resp Failure with hypoxia on home oxygen therapy. 270 mL 4 1 Active Ventolin HFA 108 (90 Base) MCG/ACT Inhalation Aerosol Solution Inhale 2 Puffs by mouth every 4 hours as needed for Wheezing. Brand necessary 54 g 3 1 Active Fluticasone-Salmete rol 250-50 MCG/DOSE Inhalation Aerosol Powder Breath Activated (Advair Diskus) 1 Puff. 0 8 Active B-12 100 MCG Oral Tablet Take 100 mcg by mouth daily. 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 810 mL 1 1 Active Spiriva Respimat 1.25 MCG/ACT Inhalation Aerosol Solution (Tiotropium [place]var[place] Monohydrate) INHALE 2 PUFFS BY MOUTH EVERY DAY 12 g 1 1 Active oxygen IN GASIndications:Inc to 4LPM with ambulation/exertion 2.5 lpm at rest 3 LPM continuous oxygen with exertion DME: [facility] Indications: Inc to 4LPM with ambulation/exertio n 1 Each 0 1 Active predniSONE 1 MG Oral Tablet (Deltasone) 0 1 Active Thiamine HCl 100 MG Oral Tablet (vitamin B-1) TAKE 1 TABLET BY MOUTH EVERY DAY 90 Tablet 1 1 Active Omeprazole 40 MG Oral Capsule Delayed Release (PriLOSEC) Take 1 Capsule by mouth daily. 1 hour before the first meal of the day 30 Capsule 0 1 Active Folic Acid 1 MG [...] Brand necessary. 3 Each 3 2 Active Fluticasone-Salmete rol 250-50 MCG/DOSE Inhalation Aerosol Powder Breath Activated (Advair Diskus)Indications: SOB (shortness of breath) Inhale 1 Puff by mouth 2 times a day. Brand necessary 3 Each 3 1 09/02/19 22 Discontinu ed(Refill) Roflumilast 500 MCG Oral Tablet (Daliresp) Take by mouth 1 Tablet in the morning. 90 Tablet 1 2 08/23/19 22 Discontinu ed(Refill) Roflumilast 500 MCG Oral Tablet (Daliresp) Take by mouth 1 Tablet in the morning. 180 Tablet 4 2 08/26/19 22 Discontinu ed(Refill) Fluticasone-Salmete rol 250-50 MCG/DOSE Inhalation Aerosol Powder Breath Activated (Advair Diskus)Indications: SOB (shortness of breath) Inhale by mouth 1 Puff in the morning AND 1 Puff before bedtime. Brand necessary. 3 Each 3 2 09/11/19 22 Discontinu ed(Refill) documented as of this encounter (statuses as of 09/10/2021) Active Problems Problem Noted Date Pulmonary HTN [...] as of this encounter (statuses as of 09/10/2021) Resolved Problems Problem Noted Date Resolved Date [...] as of this encounter (statuses as of 09/10/2021) Immunizations Name Administration Dates Next Due PPD [...] encounter Miscellaneous Notes * Telephone Encounter - Brittany Sutton LPN - 09/10/2021 5:24 PM EDT Faxed information as requested. Spoke with pts son on phone to clarify, made aware that info was faxed * Telephone Encounter - GARRETT Root - 09/10/2021 2:58 PM EDT Signed Prescriptions: Disp Refills Roflumilast 500 MCG Oral Tablet (Daliresp) 180 Ta*4 Sig: Take bymouth 1 Tablet in the morning.Authorizing Provider: ERIN MCCOLLUM Fluticasone-Salmeterol 250-50MCG/DOSE Inh*3 Each 3 Sig: Inhale by mouth 1 Puff in the morning AND 1 Puff before bedtime. Brand jung aguilar.Authorizing Provider: KAVYA JACINTO * Addendum Note - Brittany Sutton LPN - 09/10/2021 1:36 PM EDT Addended by: BRITTANY SUTTON on: 09/10/2021 01:36 PM Modules accepted: Orders * Telephone Encounter - Brittany Sutton LPN - 09/10/2021 1:34 PM EDT Please sign prescription pended. * Telephone Encounter - Valentine Ramos centrifuge separator operator - 09/09/2021 5:38 PM EDT Pt's daughter calling to check on status of message. Caller said script and the form needs to be signed by Kavya Jacinto. Caller is very frustrated that this is not done yet. Caller said they sent overthe form that needs to be signed in Encounter 08/21/2021. Caller would like a call back once both script and form ar faxed to [phone]. Thanks, Valentine Ramos Living Nurse Pharmacy Refill Call Center 09/09/2021,5:38 PM * Telephone Encounter - GARRETT Root - 09/02/2021 6:58 AM EDT Signed Prescriptions: Disp Refills Roflumilast 500 MCG Oral Tablet (Daliresp) 180 Ta*4 Sig: Take bymouth 1 Tablet in the morning.Authorizing Provider: ERIN MCCOLLUM Fluticasone-Salmeterol 250-50MCG/DOSE Inh*3 Each 3 Sig: Inhale by mouth 1 Puff in the morning AND 1 Puff before bedtime. Jayme aguilar.Authorizing Provider: KAVYA JACINTO * Addendum Note - Kristi Veras LPN - 09/01/2021 4:12 PM EDT Addended by: KRISTI VERAS on: 09/01/2021 04:12 PM Modules accepted: Orders * Telephone Encounter - Kristi Veras LPN - 09/01/2021 4:11 PM EDT See Myg message. Now asking about Advair. Looks like this was not done. * Telephone Encounter - JAH Montana - 08/28/2021 6:15 PM EDT Pt's daughter Tiara calling in asking to be called back to discuss pt's script for advair. Fax - They are also wondering if the other paperwork was completed and sent to the other pharm for the other med (Daliresp) fax to [employer] pharm - fax number - [phone] that pt also needed - Please call pt's son -[phone] pts' son will send a new pdf to clinic thru pt's myg portal. * Telephone Encounter - GARRETT Root - 08/26/2021 6:52 AM EDT Signed Prescriptions: Disp Refills Roflumilast 500 MCG Oral Tablet (Daliresp) 180 Ta*4 Sig: Take bymouth 1 Tablet in the morning.Authorizing Provider: ERIN MCCOLLUM * Telephone Encounter - Kristi Veras LPN - 08/25/2021 5:18 PM EDT Faxed rx today, Dr. David verdugo did rx. I faxed to number in other encounter. Myg to pt that this was done. * Telephone Encounter - Kristi Veras LPN - 08/25/2021 5:02 PM EDT The problem is these scripts were found on the printer, printed out on rx paper and not signed. So they were never faxed. I think we need a signature. Can you redo rx, sign and I can fax it to number in MYG message? Faxed to pharmacy number in other encounter. Pt aware via myg message. * Telephone Encounter - JAH Encarnacion - 08/25/2021 9:15 AM EDT Patient's daughter is calling and states the prescriptions to be faxed over today states this should be in by 08/22. The company is calling patient's daughter, that's how she knows it wasn't faxed yet. Daughter states there should be two faxes - please be sure to read the forms and fax to where it islisted. Please advise, thank you. * Telephone Encounter - GARRETT Root - 08/22/2021 4:42 PM EDT I refilled per patient request. Please fax to number patient listed in message. Randy, AMBER, GARRETT [facility] documented in this encounter Plan of Treatment Upcoming Encounters Date Type Specialty Care Team Description 09/15/2021 Office Visit Family Medicine Abram Owens MD [address] [place] [address] [place] [address] Health Maintenance Due Date Last Done Comments [...] 10/20/2017 LUNG CANCER SCREENING - USE SMARTSET 75163 Completed 06/23/2017 Pneumococcal Vaccine: 65+ Years Completed [...] as of this encounter Visit Diagnoses Diagnosis SOB (shortness of breath) Shortness of breath documented in this encounter Advance Directives Documents on File Type Date Recorded 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
--- OUTSIDE RECORDS SUMMARY | 2023-04-08 23:11 | External Medical Summary | Summary of Care ---
Author Name Unknown Organization [place] [address] Care Team Providers Care Special Client Bus Driver Name Role Phone Kavya Jacinto Primary Care Provider Reason for Visit * Reason Onset Date Comments Medication Refill 08/28/2021 Medication Refill 09/09/2021 Encounter Details Date Type Department Care Team Description 08/22/2021 Refill Family Practice [facility] [address] [place] [address] Kavya Jacinto CRNP [address] [place] [address] SOB (shortness of breath) Allergies [...] heartburn 60 Tab 5 8 Active Ipratropium [place] 0.02 % Inhalation Solution (Atrovent)Indicatio ns:Stage 3 [...] Respimat 1.25 MCG/ACT Inhalation Aerosol Solution (Tiotropium [place] Monohydrate) INHALE 2 PUFFS BY MOUTH EVERY DAY 12 g 1 1 Active oxygen IN GASIndications:Inc to 4LPM with ambulation/exertion 2.5 lpm at rest 3 LPM continuous oxygen with exertion DME: [facility] Indications: Inc to 4LPM with [...] Tablet 4 2 08/26/19 22 Discontinu ed(Refill) documented as of this [...] encounter Miscellaneous Notes * Addendum Note - Brittany Sutton LPN - 09/10/2021 1:36 PM EDT Addended by: BRITTANY SUTTON on: 09/10/2021 01:36 PM Modules accepted: Orders * Telephone Encounter - Brittany Sutton LPN - 09/10/2021 1:34 PM EDT Please sign prescription pended. * Telephone Encounter - FRANTZ Thao - 09/09/2021 5:38 PM EDT Pt's daughter [...] both script and form ar faxed to [phone]. Thanks, Valentine Ramos Sap Trainer Pharmacy Refill Call Center 09/09/2021,5:38 PM * Telephone Encounter - GARRETT Root - 09/02/2021 6:58 AM EDT Signed Prescriptions: Disp Refills Roflumilast 500 MCG Oral Tablet (Daliresp) 180 Ta*4 Sig: Take bymouth 1 Tablet in the morning.Authorizing Provider: ERIN HERNANDEZ Fluticasone-Salmeterol 250-50MCG/DOSE Inh*3 Each 3 Sig: Inhale by mouth 1 Puff in the morning AND 1 Puff before bedtime. Brand ne cessary.Authorizing Provider: KAVYA JACINTO * Addendum Note - [...] for the other med (Daliresp) fax to [facility] - fax number - [phone] that pt also needed - Please call pt's son -[phone] pts' son will send a new pdf to clinic thru pt's myg portal. * Telephone Encounter - GARRETT Root - 08/26/2021 6:52 AM EDT Signed Prescriptions: Disp Refills Roflumilast 500 MCG Oral Tablet (Daliresp) 180 Ta*4 Sig: Take bymouth 1 Tablet in the morning.Authorizing Provider: ERIN HERNANDEZ * Telephone Encounter - Kristi Veras LPN - 08/25/2021 5:18 PM EDT Faxed rx today, Dr. Hernandez re did rx. I faxed to number in [...] to number patient listed in message. Randy, MSN, GARRETT [facility][note 3] documented in this encounter Plan of Treatment [...] 10/20/2017 LUNG CANCER SCREENING - USE SMARTSET [id number] Completed 06/23/2017 Pneumococcal Vaccine: 65+ Years Completed [...] Documents on File Type Date Recorded Patient Wood Molder Expl anation Advanced Directive service a emelia [...] Advanced Directive Advanced Directive Care Teams Special Client Bus Driver Relationship Specialty Start Date End Date Kavya Jacinto CRNP [address] [facility] [place] [address] PCP - General Nurse Practitioner 12/31/20 documented as of this encounter
--- OUTSIDE RECORDS SUMMARY | 2023-04-08 23:11 | External Medical Summary | Summary of Care ---
Author Name Unknown Organization [place] [address] Care Team Providers Care Spa Concierge Name Role Phone Kavya Dillard Primary Care Provider Encounter Details Date Type Department Care Team Description 09/11/2021 Scan Encounter Family [facility] [address] 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 ([facility]) Inhale 2.5 mL via nebulizer 3 [...] Respimat 1.25 MCG/ACT Inhalation Aerosol Solution (Tiotropium [place] Monohydrate) INHALE 2 PUFFS BY MOUTH EVERY [...] as of this encounter (statuses as of 09/15/2021) Active Problems Problem Noted Date Pulmonary HTN [...] as of this encounter (statuses as of 09/15/2021) Resolved Problems Problem Noted Date Resolved Date [...] as of this encounter (statuses as of 09/15/2021) Immunizations Name Administration Dates Next Due PPD [...] Kavya Dillard CRNP [address] [place] [address] Health Maintenance Due Date Last Done Comments [...] 10/20/2017 LUNG CANCER SCREENING - USE SMARTSET 30189 Completed 06/23/2017 Pneumococcal Vaccine: 65+ Years Completed [...] Documents on File Type Date Recorded Patient Cloth Stretcher Expl anation Advanced Directive service a emelia [...] Directive Advanced Directive Advanced Directive Care Teams Spa Concierge Relationship Specialty Start Date End Date Kavya Dillard CRNP [address] [place] [address] PCP - General Nurse Practitioner 12/31/20 documented as of this encounter
--- OUTSIDE RECORDS SUMMARY | 2023-04-08 23:11 | External Medical Summary | Summary of Care ---
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 Diagnosis code J44.9 Stage 3 Sever COPD by Gold classification [facility]. Diagnosis code J96.11 Chronic Resp [...] 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 ([facility]) INHALE 1 AMPULE VIA NEBULIZER 3 TIMES A DAY. 810 mL 1 03/11/2021 Active Spiriva Respimat 1.25 MCG/ACT Inhalation Aerosol Solution (Tiotropium [place] Monohydrate) INHALE 2 PUFFS BY MOUTH EVERY DAY 12 g 1 03/20/2021 Active oxygen IN GASIndications:Inc to 4LPM with ambulation/exertion 2.5 lpm at rest 3 LPM continuous oxygen with exertion DME: [facility] Indications: Inc to 4LPM with ambulation/exertion [...] hypoxia, on home O2 therapy ([facility]) TAKE 1 TABLET BY MOUTH [...] before bedtime. Brand necessary. 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
--- OUTSIDE RECORDS SUMMARY | 2023-04-08 23:11 | External Medical Summary | Summary of Care ---
Author Name Unknown Organization [place] [address] Care Team Providers Care Science Faculty Member Name Role Phone Kavya Dillard GARRETT Primary Care Provider Reason for Visit * Reason Onset Date Comments case management 09/17/2021 Encounter Details Date Type Department Care Team Description 09/17/2021 Mis Manager Telephone Care Coordination [address] [facility] [place] [address] Rahel Akhtar, fire management specialist Allergies No known active allergiesdocumented as of this encounter (statuses as of 09/17/2021) Medications Medication Sig Dispensed Refills Start Date [...] heartburn 60 Tab 5 06/01/2018 Active Ipratropium [place] 0.02 % Inhalation Solution (Atrovent)Indicatio ns:Stage 3 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 Diagnosis code J44.9 Stage 3 Sever COPD by Gold classification [facility]. Diagnosis code J96.11 Chronic Resp [...] by GOLD classification ([facility]) INHALE 1 AMPULE VIA NEBULIZER 3 TIMES A DAY. 810 mL 1 03/11/2021 Active Spiriva Respimat 1.25 MCG/ACT Inhalation Aerosol Solution (Tiotropium [place] Monohydrate) INHALE 2 PUFFS BY MOUTH EVERY DAY 12 g 1 03/20/2021 Active oxygen IN GASIndications:Inc to 4LPM with ambulation/exertion 2.5 lpm at rest 3 LPM continuous oxygen with exertion DME: [facility] Indications: Inc to 4LPM with ambulation/exertion 1 [...] with hypoxia, on home O2 therapy ([facility]) TAKE 1 TABLET BY [...] as of this encounter (statuses as of 09/17/2021) Active Problems Problem Noted Date Pulmonary HTN [...] as of this encounter (statuses as of 09/17/2021) Resolved Problems Problem Noted Date Resolved Date [...] as of this encounter (statuses as of 09/17/2021) Immunizations Name Administration Dates Next Due PPD [...] 4. Plan To attempt Follow-up Rahel Akhtar RNgas appliance installer [phone] documented in this encounter Plan of Treatment Upcoming Encounters Date Type Specialty Care Team Description 09/18/2021 Office Visit Family Medicine Kavya Dillard CRNP [address] [facility] [place] [address] Health Maintenance Due Date Last Done Comments [...] 10/20/2017 LUNG CANCER SCREENING - USE SMARTSET [id number] Completed 06/23/2017 Pneumococcal Vaccine: 65+ Years Completed [...] Documents on File Type Date Recorded Patient Dental Office Receptionist Expl anation Advanced Directive service a emelia [...] Directive Advanced Directive Advanced Directive Care Teams Science Faculty Member Relationship Specialty Start Date End Date Kavya Dillard CRNP [address] [facility] [place] [address] PCP - General Nurse Practitioner 12/31/20 documented as of this encounter
--- OUTSIDE RECORDS SUMMARY | 2023-04-08 23:11 | External Medical Summary | Summary of Care ---
Author Name Unknown Organization [facility] [place] [address] Care Team Providers Care Hardening Machine Operator Name Role Phone Kavya Dillard GARRETT Primary Care Provider Reason for Visit * Reason Onset Date Comments case management 09/17/2021 Encounter Details Date Type Department Care Team Description 09/17/2021 Internal Salesperson Telephone Care Coordination [address] [facility] [place] [address] Rahel Akhtar, change management manager Allergies No known active allergiesdocumented [...] heartburn 60 Tab 5 06/01/2018 Active Ipratropium [place] 0.02 % Inhalation Solution (Atrovent)Indicatio ns:Stage 3 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 Diagnosis code J44.9 Stage 3 Sever COPD by Gold classification [facility]. Diagnosis code J96.11 Chronic [...] 3 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 ([facility]) INHALE 1 AMPULE VIA NEBULIZER 3 TIMES A DAY. 810 mL 1 03/11/2021 Active Spiriva Respimat 1.25 MCG/ACT Inhalation Aerosol Solution (Tiotropium [place] Monohydrate) INHALE 2 PUFFS BY MOUTH EVERY DAY 12 g 1 03/20/2021 Active oxygen IN GASIndications:Inc to 4LPM with ambulation/exertion 2.5 lpm at rest 3 LPM continuous oxygen with exertion DME: [facility] Indications: Inc to 4LPM with ambulation/exertion [...] with hypoxia, on home O2 therapy ([facility]) TAKE 1 TABLET BY [...] Assessment Is this call for a hospital, alf or rehab facility discharge to home? Yes 08/23/21 through 08/30/21 [facility] -acute hypoxic respiratory failure- COPD exacerbation 08/30-09/11/21 [...] to communicate, understand instructions, process information. P: Internal Salesperson Interventions: Explained/reinforced role of top case assembler. Encouraged to call with any issues or [...] agrees with plan. Rahel Akhtar RN Outpatient Internal Salesperson * Telephone Encounter - Rahel Akhtar RN - 09/17/2021 9:02 AM EDT 1. Follow-up Post Discharge 2. Attempted Phone Call First Attempt 3. Call Unanswered Left Voicemail 4. Plan To attempt Follow-up Rahel Akhtar RNdefective cigarette slitter [phone] documented in this encounter Plan of Treatment Upcoming Encounters Date Type Specialty Care Team Description 09/18/2021 Office Visit Family Medicine Kavya Dillard CRNP [address] [facility] [place] [address] Health Maintenance Due Date Last Done Comments [...] 10/20/2017 LUNG CANCER SCREENING - USE SMARTSET 25886 Completed 06/23/2017 Pneumococcal Vaccine: 65+ Years Completed [...] Documents on File Type Date Recorded Patient Business Support Assistant Expl anation Advanced Directive service a [...] Directive Advanced Directive Advanced Directive Care Teams Hardening Machine Operator Relationship Specialty Start Date End Date Kavya Dillard CRNP [address] [facility] [place] [address] PCP - General Nurse Practitioner 12/31/20 documented as of this encounter
--- OUTSIDE RECORDS SUMMARY | 2023-04-08 23:12 | External Medical Summary | Summary of Care ---
Author Name Unknown Organization [place] [address] Care Team Providers Care Offset Proof Press Operator Name Role Phone Kavya Dillard GARRETT Primary Care Provider Encounter Details Date Type Department Care Team Description 09/09/2021 Orders Only Lab Mobile Phlebotomy [facility] [address] [place] [address] Jose Miguel Lee, DO [address] [place] [address] Routine medical exam* Allergies No known active allergiesdocumented as of this encounter (statuses as of 09/09/2021) Medications Medication Sig Dispensed Refills Start Date [...] heartburn 60 Tab 5 06/01/2018 Active Ipratropium [place] 0.02 % Inhalation Solution (Atrovent)Indicatio ns:Stage 3 [...] Respimat 1.25 MCG/ACT Inhalation Aerosol Solution (Tiotropium [place] Monohydrate) INHALE 2 PUFFS BY MOUTH EVERY [...] as of this encounter (statuses as of 09/09/2021) Active Problems Problem Noted Date Pulmonary HTN [...] as of this encounter (statuses as of 09/09/2021) Resolved Problems Problem Noted Date Resolved Date [...] as of this encounter (statuses as of 09/09/2021) Immunizations Name Administration Dates Next Due PPD [...] Encounters Date Type Specialty Care Team Description 09/10/2021 Laboratory Laboratory Processing [place] [facility] [address] [facility] [place] [address] Scheduled Orders Name Type Priority Associated Diagnoses Orde r Schedule BASIC METABOLIC PANEL Lab Routine Routine medical exam Expected: 09/09/2021, Expires: 09/09/2022 Health Maintenance Due Date Last Done Comments Zoster Vaccines (1 of 2) 1992 *ADVANCE DIRECTIVE NOT ON FILE 09/25/2020 Depression Screening, Annual for Pts 12 and Over 11/12/2020 11/13/2019 COVID-19 Vaccine (3 - Booster for Moderna series) 06/26/2021 01/24/2021, 10/07/2020 O2 ASSESSMENT COMPLETED IN PAST YEAR FOR COPD 04/01/2022 04/01/2021 DIABETES SCREEN EVERY 3 YRS-AGE 45 AND ABOVE 09/09/2024 09/09/2021, 09/08/2021, 09/02/2021, Additional history exists DTaP,Tdap,and Td Vaccines (2 - Td or Tdap) 10/21/2027 10/20/2017 LUNG CANCER SCREENING - USE SMARTSET [id number] Completed 06/23/2017 Pneumococcal Vaccine: 65+ Years Completed [...] as of this encounter Visit Diagnoses Diagnosis Routine medical exam- Primary Routine general medical examination at a health care facility documented in this encounter Advance Directives Documents on File Type Date Recorded Patient Lens Assistant Expl anation Advanced Directive service a [...] Directive Advanced Directive Advanced Directive Care Teams Offset Proof Press Operator Relationship Specialty Start Date End Date Kavya Dillard CRNP [address] [facility] [place] [address] PCP - General Nurse Practitioner 12/31/20 documented as of this encounter
--- OUTSIDE RECORDS SUMMARY | 2023-04-08 23:12 | External Medical Summary ---
Author Name Unknown Address Unknown Organization [id number]:[facility] [place] [address] Laboratory Report Ordering Provider Test Date Status PATY AMIN 09/08/2021 06:20:00 Final Observation Date Value Abnormality Reference (Units ) Status SYNC LEUKOCYTES IN BLOOD BY AUTOMATED COUNT 09/08/2021 06:20:00 14.44 Above high normal 4.00-10.80 (K/uL) Final Segs 09/08/2021 06:20:00 80.3 Above high normal 40.0-75.0 (%) Final Lymphs % 09/08/2021 06:20:00 12.5 Below low normal 18.0-42.0 (%) Final Monos 09/08/2021 06:20:00 5.9 1.0-11.0 (%) Final Eosinophils 09/08/2021 06:20:00 1.2 0.0-6.0 (%) Final Basos 09/08/2021 06:20:00 0.1 0.0-2.0 (%) Final Absolute Segs 09/08/2021 06:20:00 11.59 Above high normal 1.80-7.70 (K/uL) Final Lymphs, absolute 09/08/2021 06:20:00 1.81 1.00-4.80 (K/ul) Final Monos, Abs 09/08/2021 06:20:00 0.85 0.00-1.10 (K/uL) Final Eos, Abs 09/08/2021 06:20:00 0.18 0.00-0.70 (K/uL) Final Basos, Abs 09/08/2021 06:20:00 0.01 0.00-0.20 (K/uL) Final Performing Location [facility] [place] [address]
--- OUTSIDE RECORDS SUMMARY | 2023-04-08 23:12 | External Medical Summary | Summary of Care ---
Author Name Unknown Organization [place] [address] Care Team Providers Care Ball Holder Name Role Phone Kavya Jacinto Primary Care Provider Reason for Visit * Reason Onset Date Comments Medication Refill 08/28/2021 Medication Refill 09/09/2021 Encounter Details Date Type Department Care Team Description 08/22/2021 Telephone Family Practice [facility] [address] [place] [address] Kavya Jcainto CRNP [address] [place] [address] Medication Refill; Medication Refill Allergies No known active allergiesdocumented [...] heartburn 60 Tab 5 8 Active Ipratropium [place] 0.02 % Inhalation Solution (Atrovent)Indicatio ns:Stage 3 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 Indications: [...] encounter Miscellaneous Notes * Telephone Encounter - FRANTZ Thao - [...] both script and form ar faxed to [phone]. Thanks, Valentine Ramos Director Of Medical Staff Services Pharmacy Refill Call Center 09/09/2021,5:38 PM * [...] Modules accepted: Orders * Telephone Encounter - Krisit Veras LPN - 09/01/2021 4:11 PM EDT [...] for the other med (Daliresp) fax to [facility] - fax number - [phone] that pt also needed - Please call pt's son -[phone] pts' son will send a new pdf [...] number patient listed in message. 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
--- OUTSIDE RECORDS SUMMARY | 2023-04-08 23:12 | External Medical Summary | Summary of Care ---
Author Name Unknown Organization [place] [address] Care Team Providers Care Dyno Technician Name Role Phone Kavya Dillard Primary Care Provider Reason for Visit * Reason Onset Date Comments Medication Refill 08/19/2021 Encounter Details Date Type Department Care Team Description 08/19/[address] [facility] [address] 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 Diagnosis code J44.9 Stage 3 Sever COPD by Gold classification [facility]. Diagnosis code J96.11 Chronic Resp Failure with hypoxia on home oxygen therapy. 270 mL 4 07/25/2020 Active Fluticasone-[place] rol 250-50 MCG/DOSE Inhalation Aerosol Powder Breath Activated (Advair Diskus)Indications: SOB (shortness of breath) Inhale 1 Puff by mouth 2 times a day. 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 810 mL 1 03/11/2021 Active Spiriva Respimat 1.25 MCG/ACT Inhalation Aerosol Solution (Tiotropium [place] Monohydrate) INHALE 2 PUFFS BY MOUTH EVERY DAY 12 g 1 03/20/2021 Active oxygen IN GASIndications:Inc to 4LPM with ambulation/exertion 2.5 lpm at rest 3 LPM continuous oxygen with exertion DME: [facility] Indications: Inc to 4LPM with ambulation/exertion [...] Tablet in the morning. 90 Tablet 1 08/06/2021 Active documented as of this encounter (statuses as of 08/20/2021) Active Problems Problem Noted Date Pulmonary HTN [...] as of this encounter (statuses as of 08/20/2021) Resolved Problems Problem Noted Date Resolved Date [...] as of this encounter (statuses as of 08/20/2021) Immunizations Name Administration Dates Next Due PPD [...] Telephone Encounter - Edel Cormier CPhT - 08/19/2021 3:39 PM EDT Pt calling back stating they need the Daliresp prescription faxed to [facility] at [phone] Please advise pt is not going to use [facility] for [facility] medication Thank you, Edel Cormier [employer] [facility] 08/19/2021,3:39 PM * Telephone Encounter - Edel Cormier CPhT - 08/19/2021 2:27 PM EDT Pt daughter will call back after 5pm to let us know which pharmacy to re-route her fathers medication of Daliresp. Advised we had 2 [place] pharmacies in his profile and she was not happy and said she would call back Thank you, Edel Cormier [employer] [facility] 08/19/2021,2:28 PM documented in this encounter Plan of Treatment Upcoming Encounters Date Type Specialty Care Team Description 09/08/2021 Pharmacy Hardware Design Engineer, Pharmacy Reimbursement [address] [facility] [place] [address] 09/10/2021 Office Visit Ophthalmology Zac Orellana, DO [address] [facility] [place] [address] Health Maintenance Due Date Last Done Comments Zoster Vaccines (1 of 2) 1992 *ADVANCE DIRECTIVE NOT ON FILE 09/25/2020 Depression Screening, Annual for Pts 12 and Over 11/12/2020 11/13/2019 COVID-19 Vaccine (3 - Booster for Moderna series) 06/26/2021 01/24/2021, 10/07/2020 O2 ASSESSMENT COMPLETED IN PAST YEAR FOR COPD 04/01/2022 04/01/2021 DIABETES SCREEN EVERY 3 YRS-AGE 45 AND ABOVE 12/27/2023 12/26/2020, 12/27/2017, 06/23/2017, Additional history exists DTaP,Tdap,and Td Vaccines (2 - Td or Tdap) 10/21/2027 10/20/2017 LUNG CANCER SCREENING - USE SMARTSET 26497 Completed 06/23/2017 Pneumococcal Vaccine: 65+ Years Completed [...] Documents on File Type Date Recorded 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
--- OUTSIDE RECORDS SUMMARY | 2023-04-08 23:12 | External Medical Summary ---
Author Name Unknown Address Unknown Organization [id number]:[facility] - [facility] [address] [place] [address] Laboratory Report Ordering Provider Test Date Status ROM MOSS 09/06/2021 15:00:00 Final Observation Date Value Abnormality Reference (Units) Status Source 09/06/2021 15:00:00 Liquid Final Clostridioides difficile toxin and BI-[id number] strain DNA panel - Stool by CORINNE with probe detection 09/06/2021 15:00:00 Positive for C. difficile toxin B gene DNA by PCR (Amplified Probe). Presumptive positive for C. difficile 027-NAP1-B1 strain by PCR (Amplified Probe). Abnormal Negative Final Performing Location [facility] - [address] [place] [address]
--- OUTSIDE RECORDS SUMMARY | 2023-04-08 23:12 | External Medical Summary | Summary of Care ---
Author Name Unknown Organization [place] [address] Care Team Providers Care Professor Of Practice Name Role Phone Kavya Dillard Primary Care Provider Reason for Visit * Reason Onset Date Comments Medication Refill 08/28/2021 Encounter Details Date Type Department Care Team Description 08/22/2021 Refill Family Practice [facility] [address] [place] [address] Kavya Dillard CRNP [address] [place] [address] SOB (shortness of breath) Allergies No known active allergiesdocumented as of this encounter (statuses as of 09/01/2021) Medications Medication Sig Dispensed Refills Start Date [...] heartburn 60 Tab 5 8 Active Ipratropium [place] 0.02 % Inhalation Solution (Atrovent)Indicatio ns:Stage 3 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 ([facility]) Inhale 2.5 mL via nebulizer 3 times a day. Diagnosis code J44.9 Stage 3 Sever COPD by Gold classification [facility]. Diagnosis code J96.11 Chronic Resp Failure with hypoxia on home oxygen therapy. 270 mL 4 1 Active Fluticasone-[place] rol 250-50 MCG/DOSE Inhalation Aerosol Powder Breath Activated (Advair Diskus)Indications: SOB (shortness of breath) Inhale 1 Puff by mouth 2 times a day. Brand necessary 3 Each 3 1 Active Ventolin HFA 108 (90 Base) [...] Respimat 1.25 MCG/ACT Inhalation Aerosol Solution (Tiotropium [place] Monohydrate) INHALE 2 PUFFS BY MOUTH EVERY DAY 12 g 1 1 Active oxygen IN GASIndications:Inc to 4LPM with ambulation/exertion 2.5 lpm at rest 3 LPM continuous oxygen with exertion DME: [facility] Indications: Inc to 4LPM with ambulation/exertio [...] the morning. 180 Tablet 4 2 Active Roflumilast 500 MCG Oral Tablet (Daliresp) Take by mouth 1 Tablet in the morning. 90 Tablet 1 2 08/23/19 22 Discontinu ed(Refill) Roflumilast 500 MCG Oral Tablet (Daliresp) Take by mouth 1 Tablet in the morning. 180 Tablet 4 2 08/26/19 22 Discontinu ed(Refill) documented as of this encounter (statuses as of 09/01/2021) Active Problems Problem Noted Date Pulmonary HTN [...] as of this encounter (statuses as of 09/01/2021) Resolved Problems Problem Noted Date Resolved Date [...] as of this encounter (statuses as of 09/01/2021) Immunizations Name Administration Dates Next Due PPD [...] encounter Miscellaneous Notes * Addendum Note - Dave Veras LPN - 09/01/2021 4:12 PM EDT Addended by: DAVE VERAS on: 09/01/2021 04:12 PM Modules accepted: Orders * Telephone Encounter - Dave Veras LPN - 09/01/2021 4:11 PM EDT [...] for the other med (Daliresp) fax to [facility] - fax number - [phone] that pt also needed - Please call pt's son -[phone] pts' son will send a new pdf to clinic thru pt's myg portal. * Telephone Encounter - GARRETT Root - 08/26/2021 6:52 AM EDT Signed Prescriptions: Disp Refills Roflumilast 500 MCG Oral Tablet (Daliresp) 180 Ta*4 Sig: Take bymouth 1 Tablet in the morning.Authorizing Provider: ERIN MCCOLLUM * Telephone Encounter - Dave Veras LPN - 08/25/2021 5:18 PM EDT Faxed rx today, Dr. David verdugo did rx. I faxed to number in other encounter. Myg to pt that this was done. * Telephone Encounter - Dave Veras LPN - 08/25/2021 5:02 PM EDT [...] patient listed in message. Randy, AMBER, GARRETT [facility] documented in this encounter Plan of Treatment Upcoming Encounters Date Type Specialty Care Team Description 09/08/2021 Pharmacy Picker, Pharmacy Reimbursement [address] [place] [address] Health Maintenance Due Date Last Done Comments Zoster Vaccines (1 of 2) 1992 *ADVANCE DIRECTIVE NOT ON FILE 09/25/2020 Depression Screening, Annual for Pts 12 and Over 11/12/2020 11/13/2019 COVID-19 Vaccine (3 - Booster for Moderna series) 06/26/2021 01/24/2021, 10/07/2020 O2 ASSESSMENT COMPLETED IN PAST YEAR FOR COPD 04/01/2022 04/01/2021 DIABETES SCREEN EVERY 3 YRS-AGE 45 AND ABOVE 08/31/2024 08/31/2021, 12/26/2020, 12/27/2017, Additional history exists DTaP,Tdap,and Td Vaccines (2 - Td or Tdap) 10/21/2027 10/20/2017 LUNG CANCER SCREENING - USE SMARTSET 16682 Completed 06/23/2017 Pneumococcal Vaccine: 65+ Years Completed [...] Documents on File Type Date Recorded 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
--- OUTSIDE RECORDS SUMMARY | 2023-04-08 23:12 | External Medical Summary ---
Author Name Unknown Address Unknown Organization K09:[facility] [place] [address] Laboratory Report Ordering Provider Test Date Status PATY AMIN 09/08/2021 06:20:00 Final Observation Date Value Abnormality Reference (Units ) Status BUN 09/08/2021 06:20:00 24 Above high normal 6-20 (mg/dL) Final Creatinine 09/08/2021 06:20:00 0.9 0.6-1.2 (mg/dL) Final Glomerular filtration rate/1.73 sq M.predicted [Volume Rate/Area] in Serum, Plasma or Blood by Creatinine-based formula (CKD-EPI) 09/08/2021 06:20:00 86 >=60 (mL/min) Final eGFR is calculated based on the CKD-EPI 2020 equation Sodium 09/08/2021 06:20:00 144 135-146 (m mol/L) Final Potassium 09/08/2021 06:20:00 2.9 Below low normal 3.5 -5.1 (mmol/L) Final Cl 09/08/2021 06:20:00 105 98-107 (mm ol/L) Final CO2 09/08/2021 06:20:00 25 22-32 (mmo l/L) Final Anion gap 09/08/2021 06:20:00 14 7-15 (mmol /L) Final Glucose 09/08/2021 06:20:00 80 70-120 (mg /dL) Final Calcium 09/08/2021 06:20:00 8.1 Below low normal 8.4 -10.2 (mg/dL) Final Performing Location [facility] [place] [address]
--- OUTSIDE RECORDS SUMMARY | 2023-04-08 23:12 | External Medical Summary | Summary of Care ---
Author Name Unknown Organization [place] [address] Care Team Providers Care Acoustic Sensor Operator Name Role Phone Kavya Dillard Primary Care Provider Encounter Details Date Type Department Care Team Description 08/22/2021 Refill Family Practice [facility] [address] [facility] [place] [address] Kavya Dillard CRNP [address] [place] [address] Allergies No known active allergiesdocumented as of this encounter (statuses as of 08/25/2021) Medications Medication Sig Dispensed Refills Start Date [...] heartburn 60 Tab 5 8 Active Ipratropium [place] 0.02 % Inhalation Solution (Atrovent)Indicatio ns:Stage 3 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 ([facility]) Inhale 2.5 mL via nebulizer 3 times a day. Diagnosis code J44.9 Stage 3 Sever COPD by Gold classification [facility]. Diagnosis code J96.11 Chronic [...] GOLD classification ([facility]) INHALE 1 AMPULE VIA NEBULIZER 3 TIMES A DAY. 810 mL 1 1 Active Spiriva Respimat 1.25 MCG/ACT Inhalation Aerosol Solution (Tiotropium [place] Monohydrate) INHALE 2 PUFFS BY MOUTH EVERY DAY 12 g 1 1 Active oxygen IN GASIndications:Inc to 4LPM with ambulation/exertion 2.5 lpm at rest 3 LPM continuous oxygen with exertion [facility] Indications: Inc to 4LPM with ambulation/exertio [...] failure with hypoxia, on home O2 therapy ([facility]) TAKE 1 TABLET BY [...] as of this encounter (statuses as of 08/25/2021) Active Problems Problem Noted Date Pulmonary HTN [...] as of this encounter (statuses as of 08/25/2021) Resolved Problems Problem Noted Date Resolved Date [...] as of this encounter (statuses as of 08/25/2021) Immunizations Name Administration Dates Next Due PPD [...] encounter Miscellaneous Notes * Telephone Encounter - Kristi Veras LPN [...] this should be in by 08/22. [employer] is calling patient's daughter, that's how she [...] patient listed in message. 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
--- OUTSIDE RECORDS SUMMARY | 2023-04-08 23:12 | External Medical Summary ---
Author Name Unknown Address Unknown Organization K09:[facility] [place] [address] Laboratory Report Ordering Provider Test Date Status DAWN CARR 09/02/2021 05:43:00 Final Observation Date Value Abnormality Reference (Units ) Status WBC, Total 09/02/2021 05:43:00 6.46 4.00-10.8 0 (K/uL) Final RBC 09/02/2021 05:43:00 3.19 Below low normal 4.5 0-5.25 (M/uL) Final Hemoglobin 09/02/2021 05:43:00 10.1 Below low normal 14 .0-16.8 (g/dL) Final HCT 09/02/2021 05:43:00 31.0 Below low normal 40. 0-48.4 (%) Final MCV 09/02/2021 05:43:00 97.2 82.0-99.5 (fL) Final MCH 09/02/2021 05:43:00 31.7 27.0-34.0 (pg) Final MCHC 09/02/2021 05:43:00 32.6 32.0-36.0 (g/dL) Final RDW 09/02/2021 05:43:00 13.8 11.5-15.5 (%) Final Platelets 09/02/2021 05:43:00 182 140-400 (K /uL) Final MPV 09/02/2021 05:43:00 10.0 6.6-11.1 ( fL) Final Performing Location [facility] [place] [address]
--- OUTSIDE RECORDS SUMMARY | 2023-04-08 23:12 | External Medical Summary | Summary of Care ---
Author Name Unknown Organization [place] [address] Care Team Providers Care Home Economics Extension Worker Name Role Phone Kavya Dillard Yoanna TUCKER Primary Care Provider Reason for Visit * Reason Comments Patient Assistance Program Encounter Details Date Type Department Care Team Description 09/08/2021 Pharmacy Pharmacy, [place] [address] Coordinator, Pharmacy [facility] [address] [place] [address] COPD, severe ([facility])* Allergies No known active allergiesdocumented as of this encounter (statuses as of 09/08/2021) Medications Medication Sig Dispensed Refills Start Date [...] heartburn 60 Tab 5 06/01/2018 Active Ipratropium [place] 0.02 % Inhalation Solution (Atrovent)Indicatio ns:Stage 3 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 ([facility]) Inhale 2.5 mL via nebulizer 3 times a day. Diagnosis code J44.9 Stage 3 Sever COPD by Gold classification [facility]. 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 810 mL 1 03/11/2021 Active Spiriva Respimat 1.25 MCG/ACT Inhalation Aerosol Solution (Tiotropium [place] Monohydrate) INHALE 2 PUFFS BY MOUTH EVERY DAY 12 g 1 03/20/2021 Active oxygen IN GASIndications:Inc to 4LPM with ambulation/exertion 2.5 lpm at rest 3 LPM continuous oxygen with exertion DME: [facility] Indications: Inc to 4LPM with [...] failure with hypoxia, on home O2 therapy ([facility]) TAKE 1 TABLET BY MOUTH [...] as of this encounter (statuses as of 09/08/2021) Active Problems Problem Noted Date Pulmonary HTN [...] as of this encounter (statuses as of 09/08/2021) Resolved Problems Problem Noted Date Resolved Date [...] as of this encounter (statuses as of 09/08/2021) Immunizations Name Administration Dates Next Due PPD [...] as of this encounter Progress Notes * JAH Dooley - 09/08/2021 1:37 PM EDT Patient Call Message received Message:Called the patient's home phone and spoke to his son jer ROBERTS. He said that he filled outthe Posibl. and Page[employer] altagracia for daliresp about a month ago and forwarded the altagracia to his father's provider's office. I gave jer ROBERTS my name and number should he need further assistance. He said his father iscurrently in the hospital. Details:no follow up needed Pharmacy Insurance:medicare JAH Dooley Pharmaceutical Baggage Agent Supervisor 09/08/2021, 1:40 PM * Chele Gallardo CPhT - 10/01/2020 10:05 AM EDT Patient needs re-enrolled: Company: [employer] RX: Daliresp Provider: Alan Meyers MD The patient was mailed forms TBD to sign and mail back to [facility] office with proof of income. Once the forms are received in the [facility] office, the forms will be forwarded to the prescribing provider for a signature and submission to the appropriate pharmaceutical company. If the patient is approved for a PAP program, the free medication should arrive in approximately thirty (30) days. Forms mailed to patient TBD Follow up patient: TBD JAH Manriquez Pharmaceutical Baggage Agent Supervisor 10/01/2020, 10:05 AM documented in this encounter Plan of [...] SCREEN EVERY 3 YRS-AGE 45 AND ABOVE 09/08/2024 09/08/2021, 09/02/2021, 08/31/2021, Additional history exists DTaP,Tdap,and Td Vaccines (2 - Td or Tdap) 10/21/2027 10/20/2017 LUNG CANCER SCREENING - USE SMARTSET 52981 Completed 06/23/2017 Pneumococcal Vaccine: 65+ Years Completed [...] of this encounter Visit Diagnoses Diagnosis COPD, severe (HCC)- Primary Chronic airway obstruction, not elsewhere classified documented in this encounter Advance Directives Documents on File Type Date Recorded Patient Magnetic Tape Typewriter Operator Expl anation Advanced Directive service a [...] Directive Advanced Directive Advanced Directive Care Teams Home Economics Extension Worker Relationship Specialty Start Date End Date Kavya Dillard CRNP [address] [facility] [place] [address] PCP - General Nurse Practitioner 12/31/20 documented as of this encounter
--- OUTSIDE RECORDS SUMMARY | 2023-04-08 23:12 | External Medical Summary ---
Author Name Unknown Address Unknown Organization [id number]:[facility] [place] [address] Laboratory Report Ordering Provider Test Date Status PATY AMIN 09/08/2021 06:20:00 Final Observation Date Value Abnormality Reference (Units ) Status WBC, Total 09/08/2021 06:20:00 14.44 Above high normal 4 .00-10.80 (K/uL) Final RBC 09/08/2021 06:20:00 3.32 Below low normal 4.5 0-5.25 (M/uL) Final Hemoglobin 09/08/2021 06:20:00 10.6 Below low normal 14 .0-16.8 (g/dL) Final HCT 09/08/2021 06:20:00 31.9 Below low normal 40. 0-48.4 (%) Final MCV 09/08/2021 06:20:00 96.1 82.0-99.5 (fL) Final MCH 09/08/2021 06:20:00 31.9 27.0-34.0 (pg) Final MCHC 09/08/2021 06:20:00 33.2 32.0-36.0 (g/dL) Final RDW 09/08/2021 06:20:00 14.0 11.5-15.5 (%) Final Platelets 09/08/2021 06:20:00 167 140-400 (K /uL) Final MPV 09/08/2021 06:20:00 10.5 6.6-11.1 ( fL) Final Performing Location [facility] [place] [address]
--- OUTSIDE RECORDS SUMMARY | 2023-04-08 23:12 | External Medical Summary ---
Author Name Unknown Address Unknown Organization [id number]:[facility] [place] [address] Laboratory Report Ordering Provider Test Date Status DAWN CARR 09/09/2021 05:36:00 Final Observation Date Value Abnormality Reference (Units ) Status BUN 09/09/2021 05:36:00 19 6-20 (mg/dL) Final Creatinine 09/09/2021 05:36:00 0.9 0.6-1.2 (mg/dL) Final Glomerular filtration rate/1.73 sq M.predicted [Volume Rate/Area] in Serum, Plasma or Blood by Creatinine-based formula (CKD-EPI) 09/09/2021 05:36:00 88 >=60 (mL/min) Final eGFR is calculated based on the CKD-EPI 2020 equation Sodium 09/09/2021 05:36:00 145 135-146 (m mol/L) Final Potassium 09/09/2021 05:36:00 3.1 Below low normal 3.5 -5.1 (mmol/L) Final Cl 09/09/2021 05:36:00 109 Above high normal 98 -107 (mmol/L) Final CO2 09/09/2021 05:36:00 25 22-32 (mmo l/L) Final Anion gap 09/09/2021 05:36:00 11 7-15 (mmol /L) Final Glucose 09/09/2021 05:36:00 88 70-120 (mg /dL) Final Calcium 09/09/2021 05:36:00 7.9 Below low normal 8.4 -10.2 (mg/dL) Final Performing Location [facility] [place] [address]
--- OUTSIDE RECORDS SUMMARY | 2023-04-08 23:12 | External Medical Summary | Summary of Care ---
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 Diagnosis code J44.9 Stage 3 Sever COPD by Gold classification [facility]. Diagnosis code J96.11 Chronic Resp [...] s:Stage 3 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 ([facility]) INHALE 1 AMPULE VIA NEBULIZER 3 TIMES A DAY. 810 mL 1 03/11/2021 Active Spiriva Respimat 1.25 MCG/ACT Inhalation Aerosol Solution (Tiotropium [place] Monohydrate) INHALE 2 PUFFS BY MOUTH EVERY [...] failure with hypoxia, on home O2 therapy ([facility]) TAKE 1 TABLET BY MOUTH EVERY DAY 90 Tablet 2 05/08/2021 Active Roflumilast 500 MCG Oral Tablet (Daliresp) Take by mouth 1 Tablet in the morning. 180 Tablet 4 08/25/2021 Active documented as of this encounter (statuses [...] Encounters Date Type Specialty Care Team Description 09/02/2021 Laboratory Laboratory Processing [facility] [place] [address] [place] [address] 09/08/2021 Pharmacy Medical Doctor Md, Pharmacy Reimbursement [address] [place] [address] Scheduled Orders Name Type Priority Associated Diagnoses Orde r Schedule CBC Lab Routine Routine medical exam Expected: 09/01/2021, Expires: 09/01/2022 BASIC METABOLIC PANEL Lab Routine Routine medical exam Expected: 09/01/2021, Expires: 09/01/2022 Health Maintenance Due Date Last Done Comments [...] 10/20/2017 LUNG CANCER SCREENING - USE SMARTSET [id number] Completed 06/23/2017 Pneumococcal Vaccine: 65+ Years Completed [...] Documents on File Type Date Recorded 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
--- OUTSIDE RECORDS SUMMARY | 2023-04-08 23:12 | External Medical Summary | Summary of Care ---
Author Name Unknown Organization [place] [address] Care Team Providers Care Diesel Trailer Mechanic Name Role Phone Kavya Dillard GARRETT Primary Care Provider Encounter Details Date Type Department Care Team Description 09/08/2021 Orders Only Lab Mobile Phlebotomy [facility] [address] [place] [address] Jose Miguel Lee, DO [address] [place] [address] Routine medical exam* Allergies No known active [...] heartburn 60 Tab 5 06/01/2018 Active Ipratropium [place] 0.02 % Inhalation Solution (Atrovent)Indicatio ns:Stage 3 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 (HCC) Inhale 2.5 mL via nebulizer 3 times a day. Diagnosis code J44.9 Stage 3 Sever COPD by Gold classification [facility]. Diagnosis code J96.11 Chronic Resp Failure [...] by GOLD classification ([facility]) INHALE 1 AMPULE VIA NEBULIZER 3 TIMES A DAY. 810 mL 1 03/11/2021 Active Spiriva Respimat 1.25 MCG/ACT Inhalation Aerosol Solution (Tiotropium [place] Monohydrate) INHALE 2 PUFFS BY MOUTH EVERY DAY 12 g 1 03/20/2021 Active oxygen IN GASIndications:Inc to 4LPM with ambulation/exertion 2.5 lpm at rest 3 LPM continuous oxygen with exertion DME: [facility] Indications: Inc to 4LPM with ambulation/exertion 1 [...] home O2 therapy ([facility]) TAKE 1 TABLET BY MOUTH EVERY [...] as of this encounter Progress Notes * AUGUST Aleman - 09/08/2021 11:06 PM EDT BM documented in this encounter Plan of Treatment Upcoming Encounters Date Type Specialty Care Team Description 09/09/2021 Laboratory Laboratory Processing [facility] [address] [place] [facility] [place] [address] Scheduled Orders Name Type Priority Associated Diagnoses Orde r Schedule BASIC METABOLIC PANEL Lab Routine Routine medical exam Expected: 09/08/2021, Expires: 09/08/2022 CBC Lab Routine Routine medical exam Expected: 09/08/2021, Expires: 09/08/2022 Health Maintenance Due Date Last Done Comments [...] 10/20/2017 LUNG CANCER SCREENING - USE SMARTSET [id number] Completed 06/23/2017 Pneumococcal Vaccine: 65+ Years Completed [...] Documents on File Type Date Recorded 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
--- OUTSIDE RECORDS SUMMARY | 2023-04-08 23:12 | External Medical Summary ---
Author Name Unknown Address Unknown Organization K09:[facility] [place] [place] [address] Laboratory Report Ordering Provider Test Date Status DAWN CARR 09/02/2021 05:43:00 Final Observation Date Value Abnormality Reference (Units ) Status BUN 09/02/2021 05:43:00 30 Above high normal 6-20 (mg/dL) Final Creatinine 09/02/2021 05:43:00 0.9 0.6-1.2 (mg/dL) Final Glomerular filtration rate/1.73 sq M.predicted [Volume Rate/Area] in Serum, Plasma or Blood by Creatinine-based formula (CKD-EPI) 09/02/2021 05:43:00 85 >=60 (mL/min) Final eGFR is calculated based on the CKD-EPI 2020 equation Sodium 09/02/2021 05:43:00 147 Above high normal 13 5-146 (mmol/L) Final Potassium 09/02/2021 05:43:00 3.6 3.5-5.1 (m mol/L) Final Cl 09/02/2021 05:43:00 111 Above high normal 98 -107 (mmol/L) Final CO2 09/02/2021 05:43:00 29 22-32 (mmo l/L) Final Anion gap 09/02/2021 05:43:00 7 7-15 (mmol /L) Final Glucose 09/02/2021 05:43:00 82 70-120 (mg /dL) Final Calcium 09/02/2021 05:43:00 8.7 8.4-10.2 ( mg/dL) Final Performing Location [facility] [place] [address]
--- OUTSIDE RECORDS SUMMARY | 2023-04-08 23:12 | External Medical Summary | Summary of Care ---
Author Name Unknown Organization [place] [address] Care Team Providers Care Farm Specialist Name Role Phone Kavya Dillard Primary Care Provider Encounter Details Date Type Department Care Team Description 08/22/2021 Refill Family Practice [facility] [address] [facility] [place] [address] Kavya Dillard CRNP [address] [place] [address] Allergies No known active allergiesdocumented as of [...] heartburn 60 Tab 5 8 Active Ipratropium [place] 0.02 % Inhalation Solution (Atrovent)Indicatio ns:Stage 3 [...] Respimat 1.25 MCG/ACT Inhalation Aerosol Solution (Tiotropium [place] Monohydrate) INHALE 2 PUFFS BY MOUTH EVERY DAY 12 g 1 1 Active oxygen IN GASIndications:Inc to 4LPM with ambulation/exertion 2.5 lpm at rest 3 LPM continuous oxygen with exertion [facility] Indications: Inc to 4LPM with ambulation/exertio [...] this should be in by 08/22. 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
--- OUTSIDE RECORDS SUMMARY | 2023-04-08 23:12 | External Medical Summary | Summary of Care ---
Author Name Unknown Organization [place] [address] Care Team Providers Care Skiver Machine Operator Name Role Phone Kavya Dillard Primary Care Provider Encounter Details Date Type Department Care Team Description 08/29/2021 Scan Encounter Family [facility] [address] [employer] [place] [address] Kavya Dillard CRNP 132 [place] [address] <No scans attached> Allergies No known active allergiesdocumented as of this encounter (statuses as of 08/29/2021) Medications Medication Sig Dispensed Refills Start Date [...] heartburn 60 Tab 5 06/01/2018 Active Ipratropium [place] 0.02 % Inhalation Solution (Atrovent)Indicatio ns:Stage 3 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 ([facility]) Inhale 2.5 mL via nebulizer 3 times a day. Diagnosis code J44.9 Stage 3 Sever COPD by Gold classification [facility]. Diagnosis code J96.11 Chronic Resp Failure with [...] Respimat 1.25 MCG/ACT Inhalation Aerosol Solution (Tiotropium [place] Monohydrate) INHALE 2 PUFFS BY MOUTH EVERY DAY 12 g 1 03/20/2021 Active oxygen IN GASIndications:Inc to 4LPM with ambulation/exertion 2.5 lpm at rest 3 LPM continuous oxygen with exertion DME: [facility] Indications: Inc to 4LPM with ambulation/exertion [...] therapy ([facility]) TAKE 1 TABLET BY MOUTH EVERY DAY 90 Tablet 2 05/08/2021 Active Roflumilast 500 MCG Oral Tablet (Daliresp) Take by mouth 1 Tablet in the morning. 180 Tablet 4 08/25/2021 Active documented as of this encounter (statuses as of 08/29/2021) Active Problems Problem Noted Date Pulmonary HTN [...] as of this encounter (statuses as of 08/29/2021) Resolved Problems Problem Noted Date Resolved Date [...] as of this encounter (statuses as of 08/29/2021) Immunizations Name Administration Dates Next Due PPD [...] Type Specialty Care Team Description 09/08/2021 Pharmacy Tester Regulator, Pharmacy Reimbursement [address] [place] [address] Health Maintenance Due Date Last [...] 10/20/2017 LUNG CANCER SCREENING - USE SMARTSET 46145 Completed 06/23/2017 Pneumococcal Vaccine: 65+ Years Completed [...] Documents on File Type Date Recorded Patient Final Inspection Supervisor Expl anation Advanced Directive service a [...] Directive Advanced Directive Advanced Directive Care Teams Skiver Machine Operator Relationship Specialty Start Date End Date Kavya Dillard CRNP [address] [facility] [place] [address] PCP - General Nurse Practitioner 12/31/20 documented as of this encounter
--- OUTSIDE RECORDS SUMMARY | 2023-04-08 23:12 | External Medical Summary | Summary of Care ---
Author Name Unknown Organization [place] [address] Care Team Providers Care Wet Pour Mixer Name Role Phone Kavya Dillard GARRETT Primary Care Provider Encounter Details Date Type Department Care Team Description 09/02/2021 Orders Only Lab Mobile Phlebotomy [facility] [address] [place] [address] Jose Miguel Lee, DO [address] [place] [address] Routine medical exam* Allergies No known active allergiesdocumented as of this encounter (statuses as of 09/02/2021) Medications Medication Sig Dispensed Refills Start Date [...] heartburn 60 Tab 5 06/01/2018 Active Ipratropium [place] 0.02 % Inhalation Solution (Atrovent)Indicatio ns:Stage 3 [...] Respimat 1.25 MCG/ACT Inhalation Aerosol Solution (Tiotropium [place] Monohydrate) INHALE 2 PUFFS BY MOUTH EVERY [...] as of this encounter (statuses as of 09/02/2021) Active Problems Problem Noted Date Pulmonary HTN [...] as of this encounter (statuses as of 09/02/2021) Resolved Problems Problem Noted Date Resolved Date [...] as of this encounter (statuses as of 09/02/2021) Immunizations Name Administration Dates Next Due PPD [...] Encounters Date Type Specialty Care Team Description 09/03/2021 Laboratory Laboratory Processing [facility] [address] [place] [facility] [place] [address] 09/08/2021 Pharmacy Truck Safety Inspector, Pharmacy Reimbursement [address] [place] [address] Scheduled Orders Name Type Priority Associated Diagnoses Orde r Schedule PT INR Lab Routine Routine medical exam Expected: 09/02/2021, Expires: 3 Health Maintenance Due Date Last Done Comments Zoster Vaccines (1 of 2) 1992 *ADVANCE DIRECTIVE NOT ON FILE 09/25/2020 Depression Screening, Annual for Pts 12 and Over 11/12/2020 11/13/2019 COVID-19 Vaccine (3 - Booster for Moderna series) 06/26/2021 01/24/2021, 10/07/2020 O2 ASSESSMENT COMPLETED IN PAST YEAR FOR COPD 04/01/2022 04/01/2021 DIABETES SCREEN EVERY 3 YRS-AGE 45 AND ABOVE 09/02/2024 09/02/2021, 08/31/2021, 12/26/2020, Additional history exists DTaP,Tdap,and Td Vaccines (2 - Td or Tdap) 10/21/2027 10/20/2017 LUNG CANCER SCREENING - USE SMARTSET 49610 Completed 06/23/2017 Pneumococcal Vaccine: 65+ Years Completed [...] Documents on File Type Date Recorded 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
--- OUTSIDE RECORDS SUMMARY | 2023-04-08 23:12 | External Medical Summary ---
Author Name Unknown Address Unknown Organization K09:[facility] [place] [address] Laboratory Report Ordering Provider Test Date Status DAWN CARR 09/09/2021 05:36:00 Final Observation Date Value Abnormality Reference (Units ) Status WBC, Total 09/09/2021 05:36:00 10.60 4.00-10.8 0 (K/uL) Final RBC 09/09/2021 05:36:00 2.97 Below low normal 4.5 0-5.25 (M/uL) Final Hemoglobin 09/09/2021 05:36:00 9.5 Below low normal 14 .0-16.8 (g/dL) Final HCT 09/09/2021 05:36:00 28.5 Below low normal 40. 0-48.4 (%) Final MCV 09/09/2021 05:36:00 96.0 82.0-99.5 (fL) Final MCH 09/09/2021 05:36:00 32.0 27.0-34.0 (pg) Final MCHC 09/09/2021 05:36:00 33.3 32.0-36.0 (g/dL) Final RDW 09/09/2021 05:36:00 14.0 11.5-15.5 (%) Final Platelets 09/09/2021 05:36:00 177 140-400 (K /uL) Final MPV 09/09/2021 05:36:00 10.5 6.6-11.1 ( fL) Final Performing Location [facility] [place] [address]
--- OUTSIDE RECORDS SUMMARY | 2023-04-08 23:12 | External Medical Summary ---
Author Name Unknown Address Unknown Organization K01:[facility] [address] [place] [address] Laboratory Report Ordering Provider Test Date Status PATY AMIN 08/31/2021 05:27:00 Final Observation Date Value Abnormality Reference (Units ) Status Magnesium 08/31/2021 05:27:00 1.9 1.5-2.6 (m g/dL) Final Performing Location [facility] [address] [place] [address]
--- OUTSIDE RECORDS SUMMARY | 2023-04-08 23:12 | External Medical Summary | Summary of Care ---
Author Name Unknown Organization [place] [address] Care Team Providers Care Loaf Counter Name Role Phone Kavya Dillard Primary Care Provider Reason for Visit * Reason Onset Date Comments Medication Refill 08/19/2021 Encounter Details Date Type Department Care Team Description 08/19/2021 Telephone Family Practice [facility] [address] [place] [address] Kavya Dillard CRNP [address] [place] [address] Medication Refill Allergies No known [...] heartburn 60 Tab 5 06/01/2018 Active Ipratropium [place] 0.02 % Inhalation Solution (Atrovent)Indicatio ns:Stage 3 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 ([facility]) Inhale 2.5 mL via nebulizer [...] Respimat 1.25 MCG/ACT Inhalation Aerosol Solution (Tiotropium [place] Monohydrate) INHALE 2 PUFFS BY MOUTH EVERY DAY 12 g 1 03/20/2021 Active oxygen IN GASIndications:Inc to 4LPM with ambulation/exertion 2.5 lpm at rest 3 LPM continuous oxygen with exertion DME: [facility] Indications: Inc to 4LPM with [...] Telephone Encounter - Shannan Posey LPN - 08/20/2021 4:08 PM EDT Addressed in another encounter * Telephone Encounter - Edel Cormier CPhT - 08/19/2021 3:39 PM EDT Pt calling back stating they need the Daliresp prescription faxed to [facility] program at [phone] Please advise pt is not going to use [facility] for [facility] Thank you, Edel Cormier [facility] [employer] 08/19/2021,3:39 PM * Telephone Encounter - Edel Cormier CPhT - 08/19/2021 2:27 PM EDT Pt daughter will call back after 5pm to let us know which pharmacy to re-route her fathers medication of Daliresp. Advised we had 2 [place] pharmacies in his profile and she was not happy and said she would call back Thank you, Edel Cormier [employer] [facility] 08/19/2021,2:28 PM documented in this encounter Plan of Treatment Upcoming Encounters Date Type Specialty Care Team Description 09/08/2021 Pharmacy Director Inpatient Headache Program, Pharmacy Reimbursement [address] [facility] [place] [address] 09/10/2021 Office Visit Ophthalmology Zac Orellana, DO [address] [place] [address] Health Maintenance Due Date Last Done Comments [...] 10/20/2017 LUNG CANCER SCREENING - USE SMARTSET [id number] Completed 06/23/2017 Pneumococcal Vaccine: 65+ Years Completed [...] Documents on File Type Date Recorded Patient Shadow Graph Weight Operator Expl anation Advanced Directive service a [...] Directive Advanced Directive Advanced Directive Care Teams Loaf Counter Relationship Specialty Start Date End Date Kavya Dillard CRNP [address] [place] [address] [place] [address] PCP - General Nurse Practitioner 12/31/20 documented as of this encounter
--- OUTSIDE RECORDS SUMMARY | 2023-04-08 23:12 | External Medical Summary ---
Author Name Unknown Address Unknown Organization [id number]:[facility] [address] [place] [id number] Laboratory Report Ordering Provider Test Date Status PATY AMIN 08/31/2021 05:27:00 Final Observation Date Value Abnormality Reference (Units ) Status WBC, Total 08/31/2021 05:27:00 7.42 4.00-10.8 0 (K/uL) Final RBC 08/31/2021 05:27:00 3.21 Below low normal 4.5 0-5.25 (M/uL) Final Hemoglobin 08/31/2021 05:27:00 10.4 Below low normal 14 .0-16.8 (g/dL) Final HCT 08/31/2021 05:27:00 32.0 Below low normal 40. 0-48.4 (%) Final MCV 08/31/2021 05:27:00 99.7 Above high normal 82 .0-99.5 (fL) Final MCH 08/31/2021 05:27:00 32.4 27.0-34.0 (pg) Final MCHC 08/31/2021 05:27:00 32.5 32.0-36.0 (g/dL) Final RDW 08/31/2021 05:27:00 13.8 11.5-15.5 (%) Final Platelets 08/31/2021 05:27:00 216 140-400 (K /uL) Final MPV 08/31/2021 05:27:00 9.7 6.6-11.1 ( fL) Final Performing Location [facility] [address] [place] [id number]
--- OUTSIDE RECORDS SUMMARY | 2023-04-08 23:12 | External Medical Summary ---
Author Name Unknown Address Unknown Organization K0G:[facility] [address] [place] [id number] Laboratory Report Ordering Provider Test Date Status PATY AMIN 08/31/2021 05:27:00 Final Observation Date Value Abnormality Reference (Units ) Status BUN 08/31/2021 05:27:00 30 Above high normal 6-20 (mg/dL) Final Creatinine 08/31/2021 05:27:00 1.0 0.6-1.2 (mg/dL) Final Glomerular filtration rate/1.73 sq M.predicted [Volume Rate/Area] in Serum, Plasma or Blood by Creatinine-based formula (CKD-EPI) 08/31/2021 05:27:00 82 >=60 (mL/min) Final eGFR is calculated based on the CKD-EPI 2020 equation Sodium 08/31/2021 05:27:00 148 Above high normal 13 5-146 (mmol/L) Final Potassium 08/31/2021 05:27:00 3.6 3.5-5.1 (m mol/L) Final Cl 08/31/2021 05:27:00 110 Above high normal 98 -107 (mmol/L) Final CO2 08/31/2021 05:27:00 28 22-32 (mmo l/L) Final Anion gap 08/31/2021 05:27:00 10 7-15 (mmol /L) Final Glucose 08/31/2021 05:27:00 86 70-120 (mg /dL) Final Calcium 08/31/2021 05:27:00 8.9 8.4-10.2 ( mg/dL) Final Performing Location [facility] [address] [place] [id number]
--- OUTSIDE RECORDS SUMMARY | 2023-04-08 23:12 | External Medical Summary | Summary of Care ---
Author Name Unknown Organization [place] [address] Care Team Providers Care Demurrage Clerk Name Role Phone Kavya Dillard Primary Care Provider Reason for Visit * Reason Onset Date Comments Medication Refill 08/28/2021 Encounter Details Date Type Department Care Team Description 08/22/2021 Telephone Family Practice [facility] [address] [facility] [place] [address] Kavya Dillard CRNP [address] [place] [address] Medication Refill Allergies No known active allergiesdocumented as of this encounter (statuses as of 08/28/2021) Medications Medication Sig Dispensed Refills Start Date [...] heartburn 60 Tab 5 8 Active Ipratropium [place] 0.02 % Inhalation Solution (Atrovent)Indicatio ns:Stage 3 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 ([facility]) Inhale 2.5 mL via nebulizer 3 times a day. Diagnosis code J44.9 Stage 3 Sever COPD by Gold classification [facility]. Diagnosis code J96.11 Chronic Resp Failure with [...] 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 ([facility]) INHALE 1 AMPULE VIA NEBULIZER 3 TIMES A DAY. 810 mL 1 1 Active Spiriva Respimat 1.25 MCG/ACT Inhalation Aerosol Solution (Tiotropium [place] Monohydrate) INHALE 2 PUFFS BY MOUTH EVERY [...] as of this encounter (statuses as of 08/28/2021) Active Problems Problem Noted Date Pulmonary HTN [...] as of this encounter (statuses as of 08/28/2021) Resolved Problems Problem Noted Date Resolved Date [...] as of this encounter (statuses as of 08/28/2021) Immunizations Name Administration Dates Next Due PPD [...] Miscellaneous Notes * Telephone Encounter - JAH Montana - 08/28/2021 6:15 PM EDT Pt's daughter Tiara calling in asking to be called back to discuss pt's script for advair. Fax - They are also wondering if the other paperwork was completed and sent to the other pharm for the other med (Daliresp) fax to [facility] - fax number - [phone] that pt also needed - Please call pt's son -[phone] pts' son will send a new pdf [...] patient listed in message. 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 [place] [address] PCP - General Nurse Practitioner 12/31/20 documented as of this encounter
--- OUTSIDE RECORDS SUMMARY | 2023-04-08 23:12 | External Medical Summary ---
Author Name Unknown Address Unknown Organization K09:[facility] [place] [id number] Laboratory Report Ordering Provider Test Date Status DAWN CARR 09/03/2021 05:20:00 Final Warfarin Therapy
INR: 2 .0-3.0 conventional anticoagulation
INR: 2.5- 3.5 high intensity anticoagulation Observation Date Value Abnormality Reference (Units ) Status PT 09/03/2021 05:20:00 33.7 Above high normal 11 .5-14.6 (seconds) Final INR 09/03/2021 05:20:00 3.35 Above high normal 0. 84-1.14 Final Performing Location [facility] [place] [id number]
--- OUTSIDE RECORDS SUMMARY | 2023-04-08 23:13 | External Medical Summary | Summary of Care ---
Author Name Unknown Organization [place] [address] Care Team Providers Care Dial Buffer Name Role Phone Kavya Dillard Primary Care Provider Reason for Visit * Reason Onset Date Comments Test Results 07/11/2021 Encounter Details Date Type Department Care Team Description 07/11/2021 Telephone Family Practice [facility] [address] [place] [address] Kavya Dillard CRNP [address] [place] [address] Test Results Allergies No known active allergiesdocumented as of this encounter (statuses as of 07/11/2021) Medications Medication Sig Dispensed Refills Start Date End Date Status acetaminophen (TYLENOL) 500 MG Tablet Take 500 mg by mouth every 4 hours as needed for Pain. 0 11/18/2017 Active hydrocortisone acetate (ANUSOL-HC) 25 MG suppository Administer 25 mg into the rectum 2 times a day as needed for Hemorrhoids. 0 Active Multiple Vitamins-Minerals (MULTIVITAMIN ADULTS) TABS Take by mouth daily. 0 Active roflumilast (DALIRESP) 500 MCG Tablet Take 500 mcg by mouth daily. 0 Active famotidine (PEPCID AC) 10 MG TabletIndications:G astroesophageal reflux disease with esophagitis Take 1 Tab by mouth 2 times a day. For heartburn 60 Tab 5 06/01/2018 Active Ipratropium [place] 0.02 % Inhalation Solution (Atrovent)Indicatio ns:Stage 3 [...] Respimat 1.25 MCG/ACT Inhalation Aerosol Solution (Tiotropium [place] Monohydrate) INHALE 2 PUFFS BY MOUTH EVERY DAY 12 g 1 03/20/2021 Active oxygen IN GASIndications:Inc to 4LPM with ambulation/exertion 2.5 lpm at rest 3 LPM continuous oxygen with exertion DME: [facility] Indications: Inc to 4LPM with [...] EVERY DAY 90 Tablet 2 05/08/2021 Active documented as of this encounter (statuses as of 07/11/2021) Active Problems Problem Noted Date Pulmonary HTN [...] as of this encounter (statuses as of 07/11/2021) Resolved Problems Problem Noted Date Resolved Date [...] as of this encounter (statuses as of 07/11/2021) Immunizations Name Administration Dates Next Due PPD [...] encounter Miscellaneous Notes * Telephone Encounter - Sayra Carvalho LPN - 07/11/2021 4:09 PM EST Patient is aware and verbalizes understanding. * Telephone Encounter - DEBBIE Wood - 07/11/2021 12:39 PM EST message left for patient to call back. * Telephone Encounter - GARRETT Root - 07/11/2021 12:15 PM EST Overnight oxygen testing confirms his oxygen level is still low on the 2.5 lpm. Recommend he increase to 3LPM at night and with all sleep. Please notify patient. Randy, MSN, GARRETT [facility] documented in this encounter Plan of Treatment Upcoming Encounters Date Type Specialty Care Team Description 08/05/2021 Pharmacy Industrial Psychologist, Pharmacy Reimbursement [address] [place] [address] 09/08/2021 Pharmacy Industrial Psychologist, Pharmacy Reimbursement [address] [place] [address] 09/10/2021 Office Visit Ophthalmology Zac Orellana, DO [address] [place] [address] Health Maintenance Due Date Last Done Comments Zoster Vaccines (1 of 2) 1992 *ADVANCE DIRECTIVE NOT ON FILE 09/25/2020 Depression Screening, Annual for Pts 12 and Over 11/12/2020 11/13/2019 COVID-19 Vaccine (3 - Booster for Moderna series) 06/26/2021 01/24/2021, 10/07/2020 DIABETES SCREEN EVERY 3 YRS-AGE 45 AND ABOVE 12/27/2023 12/26/2020, 12/27/2017, 06/23/2017, Additional history exists DTaP,Tdap,and Td Vaccines (2 - Td or Tdap) 10/21/2027 10/20/2017 LUNG CANCER SCREENING - USE SMARTSET [id number] Completed 06/23/2017 Pneumococcal Vaccine: 65+ Years Completed [...] on File Type Date Recorded Patient Bankruptcy Attorney Expl anation Advanced Directive service a emelia [...] Directive Advanced Directive Advanced Directive Care Teams Dial Buffer Relationship Specialty Start Date End Date Kavya Dillard CRNP [address] [facility] [place] [address] PCP - General Nurse Practitioner 12/31/20 documented as of this encounter
--- OUTSIDE RECORDS SUMMARY | 2023-04-08 23:13 | External Medical Summary | Summary of Care ---
Author Name Unknown Organization [place] [address] Care Team Providers Care Special Education Educational Assistant Name Role Phone Kavya Dillard Primary Care Provider Reason for Visit * Reason Comments eRx-Medication Refill Encounter Details Date Type Department Care Team Description 05/30/2021 Refill Family Practice [facility] [address] [place] [address] Kavya Dillard CRNP [address] [place] [address] Allergies No known active allergiesdocumented as of this encounter (statuses as of 06/01/2021) Medications Medication Sig Dispensed Refills Start Date [...] heartburn 60 Tab 5 06/01/2018 Active Ipratropium [place] 0.02 % Inhalation Solution (Atrovent)Indicatio ns:Stage 3 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 ([facility]) Inhale 2.5 mL via nebulizer 3 times [...] Respimat 1.25 MCG/ACT Inhalation Aerosol Solution (Tiotropium [place] Monohydrate) INHALE 2 PUFFS BY MOUTH EVERY DAY 12 g 1 03/20/2021 Active oxygen IN GASIndications:Inc to 4LPM with ambulation/exertion 2.5 lpm at rest 3 LPM continuous oxygen with exertion DME: [facility] Indications: Inc to 4LPM with [...] as of this encounter (statuses as of 06/01/2021) Active Problems Problem Noted Date Pulmonary HTN [...] as of this encounter (statuses as of 06/01/2021) Resolved Problems Problem Noted Date Resolved Date [...] as of this encounter (statuses as of 06/01/2021) Immunizations Name Administration Dates Next Due PPD [...] encounter Miscellaneous Notes * Telephone Encounter - Pelon Lamb [facility] - 06/01/2021 10:48 AM EST Refused Prescriptions: Disp Refills Omeprazole 40 MG Oral Capsule Delayed Rele*30 Cap*0 Sig: TAKE 1CAPSULE BY MOUTH DAILY. 1 HOUR BEFORE THE FIRST MEAL OF THE DAYRefused By: PELON LAMB for Refusal: Patient Should Contact Provider First documented in this encounter Plan of Treatment Upcoming Encounters Date Type Specialty Care Team Description 06/23/2021 Immunization Pharmacy [place], Covid19 Vaccine Pharmacy [address] [place] [address] 08/05/2021 Pharmacy Clay Miller, Pharmacy Reimbursement [address] [place] [address] 09/08/2021 Pharmacy Clay Miller, Pharmacy Reimbursement [address] [place] [address] Health Maintenance Due Date Last Done Comments Zoster Vaccines (1 of 2) 1992 *ADVANCE DIRECTIVE NOT ON FILE 09/25/2020 Depression Screening, Annual for Pts 12 and Over 11/12/2020 11/13/2019 COVID-19 Vaccine (3 - Booster for Moderna series) 07/27/2021 01/24/2021, 10/07/2020 DIABETES SCREEN EVERY 3 YRS-AGE 45 AND ABOVE 12/27/2023 12/26/2020, 12/27/2017, 06/23/2017, Additional history exists DTaP,Tdap,and Td Vaccines (2 - Td or Tdap) 10/21/2027 10/20/2017 Pneumococcal Vaccine: 65+ Years Completed 10/20/2017, 04/27/2017 Influenza Vaccine (FLU shot) Completed , 04/12/2019, 02/28/2018, Additional history exists MENINGOCOCCAL (MENACTRA/MENVEO) Aged Out No longer eligible based on patient's age to complete this topic documented as of this encounter Implants Not on filedocumented as of this encounter Advance Directives Documents on File Type Date Recorded 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
--- OUTSIDE RECORDS SUMMARY | 2023-04-08 23:13 | External Medical Summary | Summary of Care ---
Author Name Unknown Organization [place] [address] Care Team Providers Care Cap Cutter Name Role Phone Kavya Dillard Yoanna TUCKER Primary Care Provider Reason for Visit * Reason Comments Patient Assistance Program Encounter Details Date Type Department Care Team Description 08/05/2021 Pharmacy Pharmacy, [place] [address] Coordinator, Pharmacy [facility] [address] [id number] Stage 3 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 (HCC)* Allergies No known active allergiesdocumented as of this encounter (statuses as of 08/05/2021) Medications Medication Sig Dispensed Refills Start Date End Date Status acetaminophen (TYLENOL) 500 MG Tablet Take 500 mg by mouth every 4 hours as needed for Pain. 0 11/18/2017 Active hydrocortisone acetate (ANUSOL-HC) 25 MG suppository Administer 25 mg into the rectum 2 times a day as needed for Hemorrhoids. 0 Active Multiple Vitamins-Minerals (MULTIVITAMIN ADULTS) TABS Take by mouth daily. 0 Ac tive roflumilast (DALIRESP) 500 MCG Tablet Take 500 mcg by mouth daily. 0 Active famotidine (PEPCID AC) 10 MG TabletIndications:Ga stroesophageal reflux disease with esophagitis Take 1 Tab by mouth 2 times a day. For heartburn 60 Tab 5 06/01/2018 Active Ipratropium [place] 0.02 % Inhalation Solution (Atrovent)Indication s:Stage 3 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 ([facility]) Inhale 2.5 mL via nebulizer 3 times a day. Diagnosis code J44.9 Stage 3 Sever COPD by Gold classification [facility]. Diagnosis code J96.11 Chronic Resp Failure with hypoxia on home oxygen therapy. 270 mL 4 07/25/2020 Active Fluticasone-Salmeter ol 250-50 MCG/DOSE Inhalation Aerosol Powder Breath Activated (Advair Diskus)Indications:S OB (shortness of breath) Inhale 1 Puff by mouth 2 times a day. Brand necessary 3 Each 3 08/06/2020 Active Ventolin HFA 108 (90 Base) MCG/ACT Inhalation Aerosol Solution Inhale 2 Puffs by mouth every 4 hours as needed for Wheezing. Brand necessary 54 g 3 08/06/2020 Active documented as of this encounter (statuses as of 08/05/2021) Active Problems Problem Noted Date Pulmonary HTN [...] as of this encounter (statuses as of 08/05/2021) Resolved Problems Problem Noted Date Resolved Date [...] as of this encounter (statuses as of 08/05/2021) Immunizations Name Administration Dates Next Due PPD [...] encounter Progress Notes * JAH Dooley - 08/05/2021 12:54 PM EST Patient Call Message received Message:Called patient, he is receiving his meds and needs no assistance at this time Details:Patient was given my name and # for future assistance Pharmacy Insurance: medicare JAH Dooley Pharmaceutical Director [employer] 08/05/2021, 1:01 PM * JAH Conner - 08/08/2020 1:51 PM EST Patient needs re-enrolled: Company: [employer] RX: Advair Diskus Ventolin HFA Provider: Alan Meyers MD The patient was mailed forms TBD to sign and mail back to [facility] office with proof of income. Once the forms are received in the [facility] office, the forms will be forwarded to the prescribing provider for a signature and submission to the appropriate pharmaceutical company. If the patient is approved for a PAP program, the free medication should arrive in approximately thirty (30) days. Forms mailed to patient TBD Follow up patient: TBD JAH Conner Pharmaceutical Director [employer] 08/08/2020, 1:52 PM documented in this encounter Plan of Treatment Upcoming Encounters Date Type Specialty Care Team Description 09/08/2021 Pharmacy Rn Or Lvn, Pharmacy Reimbursement [address] [facility] [place] [address] 09/10/2021 Office Visit Ophthalmology Zac Orellana, DO [address] [facility] [place] [address] Health Maintenance Due Date Last Done Comments [...] 10/20/2017 LUNG CANCER SCREENING - USE SMARTSET [id number] Completed 06/23/2017 Pneumococcal Vaccine: 65+ Years Completed [...] Stage 3 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 (HCC)- Primary documented in this encounter Advance Directives Documents on File Type Date Recorded Patient Assurance Manager Insurance Expl anation Advanced Directive service a emelia [...] Directive Advanced Directive Advanced Directive Care Teams Cap Cutter Relationship Specialty Start Date End Date Kavya Dillard CRNP [address] [facility] [place] [address] PCP - General Nurse Practitioner 12/31/20 documented as of this encounter
--- OUTSIDE RECORDS SUMMARY | 2023-04-08 23:13 | External Medical Summary | Summary of Care ---
Author Name Unknown Organization [place] [address] Care Team Providers Care Mold Cleaning And Storage Supervisor Name Role Phone Kavya Jacinto Primary Care Provider Reason for Visit * Reason Comments eRx-Medication Refill Encounter Details Date Type Department Care Team Description 05/07/2021 Refill Family Practice [facility] [address] [place], [place] [id number] Kavya Jacinto CRNP [address] [place] [address] Atrial fibrillation, unspecified type (HCC)*; Chronic respiratory failure with hypoxia, on home O2 therapy (HCC); Encounter for long-term (current) use of medications Allergies No known active allergiesdocumented as of this encounter (statuses as of 05/08/2021) Medications Medication Sig Dispensed Refills Start Date [...] 60 Tab 5 06/01/20 18 Active Ipratropium Mineral 0.02 % Inhalation Solution (Atrovent)Indicati ons:Stage 3 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 ([facility]) Inhale 2.5 mL via nebulizer 3 times a day. Diagnosis code J44.9 Stage 3 Sever COPD by Gold classification [facility]. Diagnosis code J96.11 Chronic Resp Failure with hypoxia on home oxygen therapy. 270 mL 4 07/25/19 21 Active Fluticasone-Salmet umberto 250-50 MCG/DOSE Inhalation Aerosol Powder Breath Activated (Advair Diskus)Indications :SOB (shortness of breath) Inhale 1 Puff by mouth 2 times a day. Brand necessary 3 Each 3 08/07/19 21 Active Ventolin HFA 108 (90 Base) MCG/ACT Inhalation Aerosol Solution Inhale 2 Puffs by mouth every 4 hours as needed for Wheezing. Brand necessary 54 g 3 08/07/19 21 Active Fluticasone-Salmet umberto 250-50 MCG/DOSE Inhalation Aerosol Powder Breath Activated (Advair Diskus) 1 Puff. 0 11/17/19 18 Active B-12 100 MCG Oral Tablet Take 100 mcg by mouth daily. 30 Tab 11 11/12/19 21 Active Levalbuterol HCl 1.25 MG/3ML Inhalation Nebulization Solution (Xopenex)Indicatio ns:Stage 3 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 ([facility]) INHALE 1 AMPULE VIA NEBULIZER 3 TIMES A DAY. 810 mL 1 03/11/20 21 Active Spiriva Respimat 1.25 MCG/ACT Inhalation Aerosol Solution (Tiotropium Mineral Monohydrate) INHALE 2 PUFFS BY MOUTH EVERY DAY 12 g 1 03/20/20 21 Active oxygen IN GASIndications:Inc to 4LPM with ambulation/exertio n 2.5 lpm at rest 3 LPM continuous oxygen with exertion DME: [facility] Indications: Inc to 4LPM with ambulation/exertio n 1 Each 0 04/01/20 21 Active predniSONE 1 MG Oral Tablet (Deltasone) 0 03/16/20 21 Active Thiamine HCl 100 MG Oral Tablet (vitamin B-1) TAKE 1 TABLET BY MOUTH EVERY DAY 90 Tablet 1 05/06/20 21 Active Omeprazole 40 MG Oral Capsule Delayed Release (PriLOSEC) Take 1 Capsule by mouth daily. 1 hour before the first meal of the day 30 Capsule 0 05/07/20 21 Active Folic Acid 1 MG Oral TabletIndications: Chronic respiratory failure with hypoxia, on home O2 therapy (HCC) TAKE 1 TABLET BY MOUTH EVERY DAY 90 Tablet 2 05/08/20 21 Active Folic Acid 1 MG Oral TabletIndications: Chronic respiratory failure with hypoxia, on home O2 therapy (HCC) TAKE 1 TABLET BY MOUTH EVERY DAY 90 Tab 1 01/25/20 21 021 Discontinued documented as of this encounter (statuses as of 05/08/2021) Active Problems Problem Noted Date Pulmonary HTN [...] as of this encounter (statuses as of 05/08/2021) Resolved Problems Problem Noted Date Resolved Date [...] as of this encounter (statuses as of 05/08/2021) Immunizations Name Administration Dates Next Due PPD [...] encounter Miscellaneous Notes * Telephone Encounter - Louise Estes RPh - 05/08/2021 10:40 AM EST Signed Prescriptions: Disp Refills Folic Acid 1 MG Oral Tablet 90 Tab*2 Sig: TAKE 1 TABLET BY MOUTH EVERY DAYAuthorizing Provider: KAVYA JACINTO User: LOUISE ESTES * Telephone Encounter - Louise Estes RPh - 05/08/2021 10:39 AM EST Provided 90 days supply with 2 refill(s) until next routine labs will approximately be drawn. Per refill protocol patient should have cbc on file within past year. Lab work ordered (AMP report and protocol medications checked). Patient can complete labs with next routine lab work. Thank you, Louise Estes, PharmD. Clinical Pharmacist Pharmacy Refill Call Center 05/08/2021, 10:40 AM documented in this encounter Plan of Treatment Upcoming Encounters Date Type Specialty Care Team Description 05/13/2021 Office Visit [facility] [address] [facility] [address] 08/05/2021 Pharmacy Coating Machine Feeder, Pharmacy Reimbursement [address] [place] [address] 09/08/2021 Pharmacy Coating Machine Feeder, Pharmacy Reimbursement [address] [place], [place] [id number] Scheduled Orders Name Type Priority Associated Diagnoses Orde r Schedule CBC Lab Routine Encounter for long-term (current) use of medications Expected: 05/08/2021 (Approximate), Expires: 05/08/2022 Health Maintenance Due Date Last Done Comments Zoster Vaccines (1 of 2) 1992 *ADVANCE DIRECTIVE NOT ON FILE 09/25/2020 *DEPRESSION SCREENING,ANNUAL FOR PTS 12 AND OVER 11/14/2020 COVID-19 Vaccine (3 - Booster for Moderna [...] as of this encounter Visit Diagnoses Diagnosis Atrial fibrillation, unspecified type (HCC)- Primary Chronic respiratory failure with hypoxia, on home O2 therapy (HCC) Encounter for long-term (current) use of medications Encounter for long-term (current) use of other medications documented in this encounter Advance Directives Documents on File Type Date Recorded Patient Underwriting Assistant 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 Advanced Directive Advanced Directive Advanced Directive Advanced Directive Advanced Directive Advanced Directive Advanced Directive Advanced Directive Advanced Directive Advanced Directive Advanced Directive Advanced Directive Advanced Directive Advanced Directive Advanced Directive Advanced Directive Advanced Directive Advanced Directive Advanced Directive Advanced Directive Advanced Directive Advanced Directive Advanced Directive Advanced Directive Care Teams Mold Cleaning And Storage Supervisor Relationship Specialty Start Date End Date Kavya Jacinto CRNP [address] [place] [address] PCP - General Nurse Practitioner 12/31/20 documented as of this encounter
--- OUTSIDE RECORDS SUMMARY | 2023-04-08 23:13 | External Medical Summary | Summary of Care ---
Author Name Unknown Organization [place] [address] Care Team Providers Care Welder Fitter Apprentice Name Role Phone Kavya Dillard GARRETT Primary Care Provider Encounter Details Date Type Department Care Team Description 04/07/2021 Scan Encounter Ophthalmology, [facility] [address] [facility] [place] [address] Zac Orellana, DO [address] [facility] [place] [address] <No scans attached> Allergies No known active allergiesdocumented as of this encounter (statuses as of 04/15/2021) Medications Medication Sig Dispensed Refills Start Date [...] heartburn 60 Tab 5 06/01/2018 Active Ipratropium Dexter 0.02 % Inhalation Solution (Atrovent)Indication s:Stage 3 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 ([facility]) Inhale 2.5 mL via nebulizer 3 [...] Brand necessary 54 g 3 08/06/2020 Active Fluticasone-Salmeter ol 250-50 MCG/DOSE Inhalation Aerosol Powder Breath Activated (Advair Diskus) 1 Puff. 0 11/16/2017 Active B-12 100 MCG Oral Tablet Take 100 mcg by mouth daily. 30 Tab 11 11/11/2020 Active Thiamine HCl 100 MG Oral Tablet (vitamin B-1) Take 1 Tab by mouth daily. 90 Tab 1 11/11/2020 Active Folic Acid 1 MG Oral TabletIndications:Ch ronic respiratory failure with hypoxia, on home O2 therapy ([facility]) TAKE 1 TABLET BY MOUTH EVERY DAY 90 Tab 1 01/24/2021 Active Levalbuterol HCl 1.25 MG/3ML Inhalation Nebulization Solution (Xopenex)Indications :Stage 3 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 ([facility]) INHALE 1 AMPULE VIA NEBULIZER 3 TIMES A DAY. 810 mL 1 03/11/2021 Active Spiriva Respimat 1.25 MCG/ACT Inhalation Aerosol Solution (Tiotropium Dexter Monohydrate) INHALE 2 PUFFS BY MOUTH EVERY DAY 12 g 1 03/20/2021 Active oxygen IN GASIndications:Inc to 4LPM with ambulation/exertion 2.5 lpm at rest 3 LPM continuous oxygen with exertion DME: [facility] Indications: Inc to 4LPM with ambulation/exertion 1 Each 0 04/01/2021 Active documented as of this encounter (statuses as of 04/15/2021) Active Problems Problem Noted Date Pulmonary HTN [...] as of this encounter (statuses as of 04/15/2021) Resolved Problems Problem Noted Date Resolved Date [...] as of this encounter (statuses as of 04/15/2021) Immunizations Name Administration Dates Next Due PPD [...] Encounters Date Type Specialty Care Team Description 04/15/2021 Imaging Radiology 08/05/2021 Pharmacy Roving Department End Finder, Pharmacy Reimbursement [address] [place] [address] 09/08/2021 Pharmacy Roving Department End Finder, Pharmacy Reimbursement [address] [place] [address] Health Maintenance Due Date Last Done Comments Zoster Vaccines (1 of 2) 1992 *ADVANCE DIRECTIVE NOT ON FILE 09/25/2020 *DEPRESSION SCREENING,ANNUAL FOR PTS 12 AND OVER 11/14/2020 DIABETES SCREEN EVERY 3 YRS-AGE 45 AND ABOVE 12/27/2023 12/26/2020, 12/27/2017, 06/23/2017, Additional history exists DTaP,Tdap,and Td Vaccines (2 - Td or Tdap) 10/21/2027 10/20/2017 Pneumococcal Vaccine: 65+ Years Completed 10/20/2017, 04/27/2017 COVID-19 Vaccine Completed 01/24/2021, 10/07/2020 Influenza Vaccine (FLU shot) Completed , 04/12/2019, 02/28/2018, Additional history exists MENINGOCOCCAL (MENACTRA/MENVEO) Aged Out No longer eligible based on patient's age to complete this topic documented as of this encounter Implants Not on filedocumented as of this encounter Advance Directives Documents on File Type Date Recorded Patient News Video Editor 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 Advanced Directive Advanced Directive Advanced Directive Advanced Directive Advanced Directive Advanced Directive Advanced Directive Advanced Directive Advanced Directive Advanced Directive Advanced Directive Advanced Directive Advanced Directive Advanced Directive Advanced Directive Advanced Directive Advanced Directive Advanced Directive Advanced Directive Advanced Directive Advanced Directive Advanced Directive Advanced Directive Care Teams Welder Fitter Apprentice Relationship Specialty Start Date End Date Kavya Dillard CRNP [address] [facility] [place] [address] PCP - General Nurse Practitioner 12/31/20 documented as of this encounter
--- OUTSIDE RECORDS SUMMARY | 2023-04-08 23:13 | External Medical Summary | Summary of Care ---
Author Name Unknown Organization [place] [address] Care Team Providers Care Poultry Dresser Name Role Phone Kavya Dillard GARRETT Primary Care Provider Encounter Details Date Type Department Care Team Description 04/07/2021 Scan Encounter Ophthalmology, [facility] [address] [facility] [place] [address] Zac Orellana, DO [address] [facility] [place] [address] <No scans attached> Allergies No known active [...] heartburn 60 Tab 5 06/01/2018 Active Ipratropium [place] 0.02 % Inhalation Solution (Atrovent)Indication s:Stage 3 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 Diagnosis code J44.9 Stage 3 Sever COPD by Gold classification [facility]. 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 810 mL 1 03/11/2021 Active Spiriva Respimat 1.25 MCG/ACT Inhalation Aerosol Solution (Tiotropium [place] Monohydrate) INHALE 2 PUFFS BY MOUTH EVERY [...] Type Specialty Care Team Description 08/05/2021 Pharmacy Rubber Curer, Pharmacy Reimbursement [address] [place] [address] 09/08/2021 Pharmacy Rubber Curer, Pharmacy Reimbursement [address] [place] [address] Health Maintenance Due Date Last Done Comments [...] on File Type Date Recorded Patient Wood Handler 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 Advanced Directive Advanced Directive Advanced Directive Advanced Directive Advanced Directive Advanced Directive Advanced Directive Advanced Directive Advanced Directive Advanced Directive Advanced Directive Advanced Directive Advanced Directive Advanced Directive Advanced Directive Advanced Directive Advanced Directive Advanced Directive Advanced Directive Advanced Directive Advanced Directive Advanced Directive Advanced Directive Care Teams Poultry Dresser Relationship Specialty Start Date End Date Kavya Dillard CRNP [address] [facility] [place] [address] PCP - General Nurse Practitioner 12/31/20 documented as of this encounter
--- OUTSIDE RECORDS SUMMARY | 2023-04-08 23:13 | External Medical Summary | Summary of Care ---
Author Name Unknown Organization [place] [address] Care Team Providers Care Stage Manager Name Role Phone Kavya Jacinto Primary Care Provider Reason for Visit * Reason Comments eRx-Medication Refill Encounter Details Date Type Department Care Team Description 05/03/2021 Refill Family Medicine [facility] [address] [place], [place] [id number] Kavya Jacinto CRNP [address] [place] [address] Allergies No known active allergiesdocumented as of this encounter (statuses as of 05/06/2021) Medications Medication Sig Dispensed Refills Start Date [...] heartburn 60 Tab 5 8 Active Ipratropium [place] 0.02 % Inhalation Solution (Atrovent)Indicati ons:Stage 3 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 ([facility]) Inhale 2.5 mL via nebulizer 3 times a day. Diagnosis code J44.9 Stage 3 Sever COPD by Gold classification [facility]. Diagnosis code J96.11 Chronic Resp Failure with hypoxia on home oxygen therapy. 270 mL 4 1 Active Fluticasone-Salmet umberto 250-50 MCG/DOSE Inhalation Aerosol Powder Breath Activated (Advair Diskus)Indications :SOB (shortness of breath) Inhale 1 Puff by mouth 2 times a day. Brand necessary 3 Each 3 1 Active Ventolin HFA 108 (90 Base) MCG/ACT Inhalation Aerosol Solution Inhale 2 Puffs by mouth every 4 hours as needed for Wheezing. Brand necessary 54 g 3 1 Active Fluticasone-Salmet umberto 250-50 MCG/DOSE Inhalation Aerosol Powder Breath Activated (Advair Diskus) 1 Puff. 0 8 Active B-12 100 MCG Oral Tablet Take 100 mcg by mouth daily. 30 Tab 11 1 Active Folic Acid 1 MG Oral TabletIndications: Chronic respiratory failure with hypoxia, on home O2 therapy ([facility]) TAKE 1 TABLET BY MOUTH EVERY DAY 90 Tab 1 1 Active Levalbuterol HCl 1.25 MG/3ML Inhalation Nebulization Solution (Xopenex)Indicatio ns:Stage 3 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 ([facility]) INHALE 1 AMPULE VIA NEBULIZER 3 TIMES A DAY. 810 mL 1 1 Active Spiriva Respimat 1.25 MCG/ACT Inhalation Aerosol Solution (Tiotropium [place] Monohydrate) INHALE 2 PUFFS BY MOUTH EVERY DAY 12 g 1 1 Active oxygen IN GASIndications:Inc to 4LPM with ambulation/exertio n 2.5 lpm at rest 3 LPM continuous oxygen with exertion DME: [facility] Indications: Inc to 4LPM with ambulation/exertio n 1 Each 0 1 Active predniSONE 1 MG Oral Tablet (Deltasone) 0 1 Active Thiamine HCl 100 MG Oral Tablet (vitamin B-1) TAKE 1 TABLET BY MOUTH EVERY DAY 90 Tablet 1 1 Active Thiamine HCl 100 MG Oral Tablet (vitamin B-1) Take 1 Tab by mouth daily. 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 documented as of this encounter (statuses as of 05/06/2021) Resolved Problems Problem Noted Date Resolved Date [...] as of this encounter (statuses as of 05/06/2021) Immunizations Name Administration Dates Next Due PPD [...] * Telephone Encounter - GARRETT Root - 05/06/2021 7:24 AM EST Signed Prescriptions: Disp Refills Thiamine HCl 100 MG Oral Tablet (vitamin B*90 Tab*1 Sig: TAKE 1 TABLET BY MOUTH EVERY DAY Authorizing Provider: KAVYA JACINTO * Telephone Encounter - Rory Mendoza [facility] - 05/05/2021 8:45 AM EST Pending Prescriptions: Disp Refills Thiamine HCl 100 MG Oral Tablet [Pharmacy *90 Tab*1 Sig: TAKE 1 TABLET BY MOUTH EVERY DAY * Telephone Encounter - Rory Mendoza RP - 05/05/2021 8:45 AM EST Refill pharmacists currently not authorized to approve refills for this class of medication per refill protocol. Please approve if appropriate. Thanks, Rory Mendoza, PharmD Clinical Pharmacist TelePharmacy 05/05/2021 8:45 AM documented in this encounter Plan of Treatment Upcoming Encounters Date Type Specialty Care Team Description 05/13/2021 Office Visit Ophthalmology Zac Orellana, DO 132 [facility] [place] [address] 08/05/2021 Pharmacy Verifying Specialist, Pharmacy Reimbursement [address] [place] [address] 09/08/2021 Pharmacy Verifying Specialist, Pharmacy Reimbursement [address] [place] [address] Health Maintenance Due Date Last Done Comments [...] Documents on File Type Date Recorded Patient Slagger 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 Advanced Directive Advanced Directive Advanced Directive Advanced Directive Advanced Directive Advanced Directive Advanced Directive Advanced Directive Advanced Directive Advanced Directive Advanced Directive Advanced Directive Advanced Directive Advanced Directive Advanced Directive Advanced Directive Advanced Directive Advanced Directive Advanced Directive Advanced Directive Advanced Directive Advanced Directive Advanced Directive Advanced Directive Care Teams Stage Manager Relationship Specialty Start Date End Date Kavya Jacinto CRNP 132 [facility] [place] [address] PCP - General Nurse Practitioner 12/31/20 documented as of this encounter
--- OUTSIDE RECORDS SUMMARY | 2023-04-08 23:13 | External Medical Summary | Summary of Care ---
Author Name Unknown Organization [place] [address] Care Team Providers Care Shoder Filler Name Role Phone Kavya Dillard Primary Care Provider Reason for Visit * Reason Onset Date Comments Medication Refill 08/19/2021 Encounter Details Date Type Department Care Team Description 08/19/2021 Telephone Family Practice [facility] 132 [place] [address] Kavya Dillard CRNP [address] [place] [address] Medication Refill Allergies No known active allergiesdocumented as of this encounter (statuses as of 08/19/2021) Medications Medication Sig Dispensed Refills Start Date [...] heartburn 60 Tab 5 06/01/2018 Active Ipratropium [place] 0.02 % Inhalation Solution (Atrovent)Indicatio ns:Stage 3 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 ([facility]) Inhale 2.5 mL via nebulizer 3 times a day. Diagnosis code J44.9 Stage 3 Sever COPD by Gold classification [facility]. Diagnosis code J96.11 Chronic Resp [...] 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 ([facility]) INHALE 1 AMPULE VIA NEBULIZER 3 TIMES A DAY. 810 mL 1 03/11/2021 Active Spiriva Respimat 1.25 MCG/ACT Inhalation Aerosol Solution (Tiotropium [place] Monohydrate) INHALE 2 PUFFS BY MOUTH EVERY [...] as of this encounter (statuses as of 08/19/2021) Active Problems Problem Noted Date Pulmonary HTN [...] as of this encounter (statuses as of 08/19/2021) Resolved Problems Problem Noted Date Resolved Date [...] as of this encounter (statuses as of 08/19/2021) Immunizations Name Administration Dates Next Due PPD [...] they need the Daliresp prescription faxed to [facility] Assistance program at [phone] Please advise pt is not going to use [facility] for [facility] medication Thank you, Edel Cormier Emg Technician II [facility] Telepharm[facility] 08/19/2021,3:39 PM * Telephone Encounter - Edel Cormier CPhT - 08/19/2021 2:27 PM EDT Pt daughter will call back after 5pm to let us know which pharmacy to re-route her fathers medication of Daliresp. Advised we had 2 [place] pharmacies in his profile and she was not happy and said she would call back Thank you, Edel Cormier Emg Technician II [facility] 08/19/2021,2:28 PM documented in this encounter Plan of Treatment Upcoming Encounters Date Type Specialty Care Team Description 09/08/2021 Pharmacy Pegger, Pharmacy Reimbursement [address] [facility] [place] [address] 09/10/2021 Office Visit Ophthalmology Zac Orellana, DO 132 [facility] [place] [address] Health Maintenance Due Date Last Done Comments [...] 10/20/2017 LUNG CANCER SCREENING - USE SMARTSET [id number] Completed 06/23/2017 Pneumococcal Vaccine: 65+ Years Completed [...] Documents on File Type Date Recorded Patient City Comptroller Expl anation Advanced Directive service a emelia [...] Directive Advanced Directive Advanced Directive Care Teams Shoder Filler Relationship Specialty Start Date End Date Kavya Dillard CRNP [address] [facility] [place] [address] PCP - General Nurse Practitioner 12/31/20 documented as of this encounter
--- OUTSIDE RECORDS SUMMARY | 2023-04-08 23:13 | External Medical Summary | Summary of Care ---
Author Name Unknown Organization [place] [address] Care Team Providers Care Tube Molder Fiberglass Name Role Phone Kavya Dillard Primary Care Provider Reason for Visit * Reason Onset Date Comments Medication Refill 08/19/2021 Encounter Details Date Type Department Care Team Description 08/19/2021 Refill Family [facility] [address] [place] [address] Kavya Dillard CRNP 132 [place] [address] Allergies No known active allergiesdocumented as of [...] heartburn 60 Tab 5 06/01/2018 Active Ipratropium [place] 0.02 % Inhalation Solution (Atrovent)Indicatio ns:Stage 3 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 ([facility]) Inhale 2.5 mL via nebulizer 3 times a day. Diagnosis code J44.9 Stage 3 Sever COPD by Gold classification [facility]. Diagnosis code J96.11 Chronic [...] s:Stage 3 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 ([facility]) INHALE 1 AMPULE VIA NEBULIZER 3 TIMES A DAY. 810 mL 1 03/11/2021 Active Spiriva Respimat 1.25 MCG/ACT Inhalation Aerosol Solution (Tiotropium [place] Monohydrate) INHALE 2 PUFFS BY MOUTH EVERY DAY 12 g 1 03/20/2021 Active oxygen IN GASIndications:Inc to 4LPM with ambulation/exertion 2.5 lpm at rest 3 LPM continuous oxygen with exertion DME: [facility] Indications: Inc to 4LPM with ambulation/exertion [...] would call back Thank you, Edel Cormier Dogman/Woman II [facility] Telepharmacy 08/19/2021,2:28 PM documented in this encounter Plan of Treatment Upcoming Encounters Date Type Specialty Care Team Description 09/08/2021 Pharmacy Skate Hop, Pharmacy Reimbursement [address] [place] [address] 09/10/2021 Office Visit Ophthalmology Zac Orellana, DO 132 [facility] [place] [address] Health Maintenance Due Date Last Done Comments [...] 10/20/2017 LUNG CANCER SCREENING - USE SMARTSET 56894 Completed 06/23/2017 Pneumococcal Vaccine: 65+ Years Completed [...] Documents on File Type Date Recorded Patient Delicatessen Goods Stock Clerk Expl anation Advanced Directive service a [...] Directive Advanced Directive Advanced Directive Care Teams Tube Molder Fiberglass Relationship Specialty Start Date End Date Kavya Dillard CRNP [address] [facility] [place] [address] PCP - General Nurse Practitioner 12/31/20 documented as of this encounter
--- OUTSIDE RECORDS SUMMARY | 2023-04-08 23:13 | External Medical Summary | Summary of Care ---
Author Name Unknown Organization [place] [address] Care Team Providers Care Photonics Engineering Technician Name Role Phone Kavya Dillard Primary Care Provider Reason for Visit * Reason Onset Date Comments Medication Refill 08/19/2021 Encounter Details Date Type Department Care Team Description 08/19/2021 Refill Family [facility] 132 [place] [address] Kavya Dillard CRNP 132 [place] [address] Allergies No known active allergiesdocumented as of [...] heartburn 60 Tab 5 06/01/2018 Active Ipratropium [place] 0.02 % Inhalation Solution (Atrovent)Indicatio ns:Stage 3 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 ([facility]) Inhale 2.5 mL via nebulizer 3 times a day. 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 Diagnosis code J96.11 Chronic Resp [...] s:Stage 3 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 ([facility]) INHALE 1 AMPULE VIA NEBULIZER 3 TIMES A DAY. 810 mL 1 03/11/2021 Active Spiriva Respimat 1.25 MCG/ACT Inhalation Aerosol Solution (Tiotropium [place] Monohydrate) INHALE 2 PUFFS BY MOUTH EVERY [...] encounter Miscellaneous Notes * Telephone Encounter - Hazel Cabrera CPhT - 08/19/2021 3:30 PM EDT Error. Thank you, Hazel Cabrera Tabular Typist Rm Telepharmacy 08/19/2021, 3:32 PM documented in this encounter Plan of Treatment Upcoming Encounters Date Type Specialty Care Team Description 09/08/2021 Pharmacy Order Builder Loader, Pharmacy Reimbursement [address] [place] [address] 09/10/2021 Office Visit Ophthalmology Zac Orellana DO [address] [place] [address] Health Maintenance Due Date Last Done Comments [...] 10/20/2017 LUNG CANCER SCREENING - USE SMARTSET 32446 Completed 06/23/2017 Pneumococcal Vaccine: 65+ Years Completed [...] on File Type Date Recorded Patient Sticker Operator Expl anation Advanced Directive service a [...] Directive Advanced Directive Advanced Directive Care Teams Photonics Engineering Technician Relationship Specialty Start Date End Date Kavya Dillard CRNP [address] [place] [address] PCP - General Nurse Practitioner 12/31/20 documented as of this encounter
--- OUTSIDE RECORDS SUMMARY | 2023-04-08 23:13 | External Medical Summary | Summary of Care ---
Author Name Unknown Organization [place] [address] Care Team Providers Care Instrumental Music Teacher Name Role Phone Kavya Dillard Primary Care Provider Reason for Visit * Reason Onset Date Comments Med Request 08/04/2021 Encounter Details Date Type Department Care Team Description 08/04/2021 Telephone Family Practice [facility] 132 [place] [address] Kavya Dillard CRNP [address] [place] [address] Med Request Allergies No known active allergiesdocumented as of this encounter (statuses as of 08/06/2021) Medications Medication Sig Dispensed Refills Start Date [...] 60 Tab 5 06/01/20 18 Active Ipratropium [place] 0.02 % Inhalation Solution (Atrovent)Indicati ons:Stage 3 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 ([facility]) Inhale 2.5 mL via nebulizer [...] by GOLD classification ([facility]) INHALE 1 AMPULE VIA NEBULIZER 3 TIMES A DAY. 810 mL 1 03/11/20 21 Active Spiriva Respimat 1.25 MCG/ACT Inhalation Aerosol Solution (Tiotropium [place] Monohydrate) INHALE 2 PUFFS BY MOUTH EVERY DAY 12 g 1 03/20/20 21 Active oxygen IN GASIndications:Inc to 4LPM with ambulation/exertio n 2.5 lpm at rest 3 LPM continuous oxygen with exertion DME: [facility] Indications: Inc to 4LPM with [...] Tablet in the morning. 90 Tablet 1 08/07/19 22 Active roflumilast (DALIRESP) 500 MCG Tablet Take 500 mcg by mouth daily. 0 022 Discontinued(Re fill) Roflumilast 500 MCG Oral Tablet (Daliresp) Take by mouth 1 Tablet in the morning. 90 Tablet 1 08/07/19 22 022 Discontinued documented as of this encounter (statuses as of 08/06/2021) Active Problems Problem Noted Date Pulmonary HTN [...] as of this encounter (statuses as of 08/06/2021) Resolved Problems Problem Noted Date Resolved Date [...] as of this encounter (statuses as of 08/06/2021) Immunizations Name Administration Dates Next Due PPD [...] Telephone Encounter - Shannan Posey LPN - 08/06/2021 3:34 PM EST Please print prescription so that if can be faxed to prescription savings program. Thank you * Telephone Encounter - GARRETT Root - 08/06/2021 12:43 PM EST RX REFILLED. Randy, AMBER, GARRETT [facility] * Telephone Encounter - FRANTZ John - 08/06/2021 9:35 AM EST Pt's ec calling to check on status of rx. Caller can be reached at [phone]. Thank you, Adelaide Herr, Warehouse Operator [employer] 08/06/2021,9:35 AM * Telephone Encounter - FRANTZ Galdamez - 08/05/2021 6:45 PM EST Patient's daughter in law calling in regards to getting the roflumilast (DALIRESP) 500 MCG Tablets.Patient hasn't seen Dr Dodson in a long time. He used to get the prescription from Dr Meyers. Anushka. Nikole Duenas Warehouse Operator [employer] 08/05/2021 6:47 PM * Telephone Encounter - Sahnnan Posey LPN - 08/05/2021 4:21 PM EST Called and spoke with pt, verbalized understanding of message below. Prescription should come from Ilan Dodson PA-C * Telephone Encounter - GARRETT Root - 08/05/2021 3:34 PM EST His pulm Prescribes this- Ilan Dodson at [facility]. Randy, AMBER, GARRETT [facility] * Telephone Encounter - Shannan Posey LPN - 08/05/2021 3:25 PM EST Received letter form pharmacy assistance program who needs a new prescription printed and faxed to [phone] * Telephone Encounter - FRANTZ Recio - 08/04/2021 6:19 PM EST Pt daughter asking if faxed paperwork for roflumilast (DALIRESP) 500 MCG Tablet to [employer] at fax [phone]. Pt needs that paperwork faxed in order for pt to continue receiving it for free, please advise, asked for high priority. Thank you, Tash Blanco Warehouse Operator [facility] Telepharmacy 08/04/2021,6:22 PM documented in this encounter Plan of Treatment Upcoming Encounters Date Type Specialty Care Team Description 09/08/2021 Pharmacy Rn Surgery Icu, Pharmacy Reimbursement [address] [facility] [place] [address] 09/10/2021 Office Visit Ophthalmology Zac Orellana, DO 132 [facility] [place] [address] Health Maintenance Due Date Last Done Comments [...] 10/20/2017 LUNG CANCER SCREENING - USE SMARTSET 96116 Completed 06/23/2017 Pneumococcal Vaccine: 65+ Years Completed [...] Documents on File Type Date Recorded Patient Craps Dealer Expl anation Advanced Directive service a emelia [...] Directive Advanced Directive Advanced Directive Care Teams Instrumental Music Teacher Relationship Specialty Start Date End Date Kavya Dillard CRNP 132 [facility] [place] [address] PCP - General Nurse Practitioner 12/31/20 documented as of this encounter
--- OUTSIDE RECORDS SUMMARY | 2023-04-08 23:13 | External Medical Summary | Summary of Care ---
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 810 mL 1 03/11/20 21 Active Spiriva Respimat 1.25 MCG/ACT Inhalation Aerosol Solution (Tiotropium [place] Monohydrate) INHALE 2 PUFFS BY MOUTH EVERY [...] Encounter - Shannan Posey LPN - 08/06/2021 8:06 PM EST Faxed prescription as requested, pt aware * Telephone Encounter - Shannan Posey LPN - 08/06/2021 3:34 PM EST Please print prescription so that if can be faxed to prescription savings program. Thank you * Telephone Encounter - GARRETT Root - 08/06/2021 12:43 PM EST RX REFILLED. Randy, AMBER, GARRETT [facility] * Telephone Encounter - FRANTZ John - 08/06/2021 9:35 AM EST Pt's ec calling to check on status of rx. Caller can be reached at [phone]. Thank you, Adelaide Herr, Lowerator Operator [employer] 08/06/2021,9:35 AM * Telephone Encounter - FRANTZ Galdamez - 08/05/2021 6:45 PM EST Patient's daughter in law calling in regards to getting the roflumilast (DALIRESP) 500 MCG Tablets.Patient hasn't seen Dr Dodson in a long time. He used to get the prescription from Dr Meyers. Pleaseadvise. Nikole Duenas Lowerator Operator [employer] 08/05/2021 6:47 PM * Telephone Encounter - Shannan Posey LPN - 08/05/2021 4:21 PM EST Called and spoke with pt, verbalized understanding of message below. Prescription should come from Ilan Dodson PA-C * Telephone Encounter - GARRETT Root - 08/05/2021 3:34 PM EST His pulm Prescribes this- Ilan Dodson at [facility]. Randy, MSN, GARRETT [facility] * Telephone Encounter - Shannan Posey LPN - 08/05/2021 3:25 PM EST Received letter form pharmacy assistance program who needs a new prescription printed and faxed to [phone] * Telephone Encounter - FRANTZ Recio - 08/04/2021 6:19 PM EST Pt daughter asking if faxed paperwork for roflumilast (DALIRESP) 500 MCG Tablet to [employer] at fax [phone]. Pt needs that paperwork faxed in order for pt to continue receiving it for free, please advise, asked for high priority. Thank you, Tash Blanco Lowerator Operator [facility] Telepharmacy 08/04/2021,6:22 PM documented in this encounter Plan of Treatment Upcoming Encounters Date Type Specialty Care Team Description 09/08/2021 Pharmacy Robotic Welder, Pharmacy Reimbursement [address] [place] [id number] 09/10/2021 Office Visit Ophthalmology Zac Orellana, DO [address] [place] [address] Health Maintenance Due Date Last Done Comments [...] 10/20/2017 LUNG CANCER SCREENING - USE SMARTSET 64[address] Completed 06/23/2017 Pneumococcal Vaccine: 65+ Years Completed [...] Documents on File Type Date Recorded Patient Unit Clerk Expl anation Advanced Directive service a [...] Directive Advanced Directive Advanced Directive Care Teams Wrist Liner Relationship Specialty Start Date End Date Kavya Dillard CRNP 132 [facility] [place] [address] PCP - General Nurse Practitioner 12/31/20 documented as of this encounter
--- OUTSIDE RECORDS SUMMARY | 2023-04-08 23:13 | External Medical Summary | Summary of Care ---
Author Name Unknown Organization [place] [address] Care Team Providers Care Cardiology Consultants Name Role Phone Kavya Dillard Primary Care Provider Reason for Visit * Reason Onset Date Comments Med Request 06/12/2021 Encounter Details Date Type Department Care Team Description 06/12/2021 Telephone [facility] [address] Kavya Dillard CRNP 132 [place] [address] Med Request Allergies No known active allergiesdocumented as of this encounter (statuses as of 06/13/2021) Medications Medication Sig Dispensed Refills Start Date [...] heartburn 60 Tab 5 06/01/2018 Active Ipratropium [place] 0.02 % Inhalation Solution (Atrovent)Indicatio ns:Stage 3 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 ([facility]) Inhale 2.5 mL via nebulizer 3 times [...] 1.25 MCG/ACT Inhalation Aerosol Solution (Tiotropium [place] Monohydrate) INHALE 2 PUFFS BY MOUTH EVERY DAY 12 g 1 03/20/2021 Active oxygen IN GASIndications:Inc to 4LPM with ambulation/exertion 2.5 lpm at rest 3 LPM continuous oxygen with exertion DME: [facility] Indications: Inc to 4LPM with [...] as of this encounter (statuses as of 06/13/2021) Active Problems Problem Noted Date Pulmonary HTN [...] as of this encounter (statuses as of 06/13/2021) Resolved Problems Problem Noted Date Resolved Date [...] as of this encounter (statuses as of 06/13/2021) Immunizations Name Administration Dates Next Due PPD [...] encounter Miscellaneous Notes * Telephone Encounter - Liliana Ruvalcaba CPhT - 06/12/2021 1:14 PM EST Pt son calling with complaints of Nausea/vomiting, diarrhea and is requesting a medication be prescribed. Pt did not want to schedule an appointment at this time. Call details was completed, please refer to this for further information. Please call Maria Isabel before calling the pt. Pt daughter can be reached at: [phone] Pt having trouble holding bowels and that is why they're declining an appt. Thanks, Liliana Ruvalcaba CPhT Slot Operations Manager Pharmacy Refill Call Center 06/12/2021,1:15 PM documented in this encounter Plan of Treatment Upcoming Encounters Date Type Specialty Care Team Description 06/23/2021 Immunization Pharmacy Doshi, Covid19 Vaccine Pharmacy Rosanne [address] [place] [address] 08/05/2021 Pharmacy Register Clerk, [facility] [address] [facility] [address] 09/08/2021 Pharmacy Register Clerk, [facility] [address] [facility] [address] 09/10/2021 Office Visit Ophthalmology Zac Orellana DO [address] [place] [address] Health Maintenance Due Date Last Done Comments [...] 10/20/2017 LUNG CANCER SCREENING - USE SMARTSET 56235 Completed 06/23/2017 Pneumococcal Vaccine: 65+ Years Completed [...] on File Type Date Recorded Patient Director Nicu Expl anation Advanced Directive service a emelia [...] Directive Advanced Directive Advanced Directive Care Teams Cardiology Consultants Relationship Specialty Start Date End Date Kavya Dillard CRNP 132 [facility] [place] [address] PCP - General Nurse Practitioner 12/31/20 documented as of this encounter
--- OUTSIDE RECORDS SUMMARY | 2023-04-08 23:13 | External Medical Summary | Summary of Care ---
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, right eye Allergies No known active allergiesdocumented as of this encounter (statuses as of 05/13/2021) Medications Medication Sig Dispensed Refills Start Date [...] heartburn 60 Tab 5 06/01/2018 Active Ipratropium [place] 0.02 % Inhalation Solution (Atrovent)Indicatio ns:Stage 3 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 ([facility]) Inhale 2.5 mL via nebulizer [...] Respimat 1.25 MCG/ACT Inhalation Aerosol Solution (Tiotropium [place] Monohydrate) INHALE 2 PUFFS BY MOUTH EVERY DAY 12 g 1 03/20/2021 Active oxygen IN GASIndications:Inc to 4LPM with ambulation/exertion 2.5 lpm at rest 3 LPM continuous oxygen with exertion DME: [facility] Indications: Inc to 4LPM with ambulation/exertion [...] as of this encounter (statuses as of 05/13/2021) Active Problems Problem Noted Date Pulmonary HTN [...] as of this encounter (statuses as of 05/13/2021) Resolved Problems Problem Noted Date Resolved Date [...] as of this encounter (statuses as of 05/13/2021) Immunizations Name Administration Dates Next Due PPD [...] 1954 - 04[birth year]07[birth year]2016 Smokeless Tobacco: Never Used Tobacco Cessation:Counseling Given: No Comments:started age 16 Alcohol Use Standard Drinks/Week [...] as of this encounter Progress Notes * Zac Orellana, - 05/13/2021 12:45 PM EST [facility] [place] Nursing notes reviewed. Eye vitals reviewed. Mood and Affect: normal HPI: Jer Abreu is a 80 year old male who presents for evaluation of retina. No other eye complaints. Denies significant pain. Base Eye Exam Visual Acuity (Snellen - Linear) Right Left Dist sc 20/30 20/30 Patient forget his eyeglasses ar home Tonometry (Tonopen, 12:49 PM) Right Left Pressure 9 14 Pupils Pupils Light Shape React APD Right PERRL 2 Round Brisk None Left PERRL 2 Round Brisk None Visual Rodriguez (Counting fingers) Right Left Full Full Extraocular Movement Right Left Full Full EXTERNAL: The ocular adnexae are unremarkable. SLE: Lids/Lashes: wnl OU Conjunctiva/Sclera: quiet OU Cornea: clear OU Anterior Chamber: deep and quiet OD--improved (had cell and 2+flare); deep and quiet OS Iris: RESOLVED prominent iris vasculature OD (compared to OS); nml OS; no NVI OU Lens: PCIOL OU GONIOSCOPY - 05/13/2021 OD: open to CB, no NVA OS: open to CB, no NVA Dilated fundus exam OD: vitreous: clear optic nerve: 0.3, no edema/pallor/NVD macula: wnl vessels: av 1:2 periphery: wnl, no RT/RD Dilated fundus exam OS: vitreous: clear optic nerve: 0.3, no edema/pallor/NVD macula: wnl vessels: av 1:2 periphery: wnl, no RT/RD OCT Interpretation: 04/08/21 OD: trace cysts, no pvd OS: no cme/srfluid , no pvd A/P: 1. Nongranulomatous Anterior Uveitis OD -made iris vessels appear prominent but this resolved w/ drops -no OIS, no true iris NV -resolved on drops -stopped taking drop PF and atropine 1-2 weeks ago (ran out) -cont to hold -monitor for recurrence 2. 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 Degree of stenosis may be greater than reported due to heavily calcified plaque. Left carotid artery duplex examination indicates evidence of 50-69% stenosis of the internal carotid artery. F/u w/ me 3 months REBECCA Padilla scribing under the direction of Dr. Zac Orellana. This note is prepared by REBECCA Padilla acting as a scribe for me. The scribe's documentation has been prepared under my direction and personally reviewed by me in its entirety. I confirm thatthe note above accurately reflects all work, treatment, procedures and medical decision making performed by me. Zac Orellana DO 1121 CC: Vannessa Muro, OD PCP: GARRETT Fabian documented in this encounter Nursing Notes * Kari Santana RN - 05/13/2021 12:49 PM EST Jer Abreu Jr. is a 80 year old year old male who presents for Vascular Disorder of Iris and Ciliary body OD. Patient's primary eye doctor: Dr. Muro Patient's name preference, 'Daniel'. MyG User Status: Active Have you addressed [facility] with the patient? Yes Last Office/Telemedicine Visit: 04/08/2021 Patient currently states " I have on and off sun spots on my right eye" Are you diabetic? No Phenylephrine Hydrochloride 2.5% and Tropicamide Ophthalmic Solution 1% inserted into Both eyes 12:[address]? yes Patient advised not to drive while eye's are dilated or vision is blurred. Pt/Family verbalizes understanding. 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, right eye documented in this encounter Advance Directives Documents on File Type Date Recorded Patient Plate Cleaner 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 Advanced Directive Advanced Directive Advanced Directive Advanced Directive Advanced Directive Advanced Directive Advanced Directive Advanced Directive Advanced Directive Advanced Directive Advanced Directive Advanced Directive Advanced Directive Advanced Directive Advanced Directive Advanced Directive Advanced Directive Advanced Directive Advanced Directive Advanced Directive Advanced Directive Advanced Directive Advanced Directive Advanced Directive Care Teams Long Wall Mining Machine Helper Relationship Specialty Start Date End Date Kavya Dillard CRNP 132 [facility] [place] [address] PCP - General Nurse Practitioner 12/31/20 documented as of this encounter
--- OUTSIDE RECORDS SUMMARY | 2023-04-08 23:14 | External Medical Summary | Summary of Care ---
Author Name Unknown Organization [place] [address] Care Team Providers Care Academy Education Director Name Role Phone Kavya Dillard Yoanna TUCKER Primary Care Provider Encounter Details Date Type Department Care Team Description 04/08/2021 Telephone Ophthalmology, [facility] [address] [facility] [place] [address] Zac Orellana, [address] [facility] [place] [address] [phone] Allergies No Known Active Allergiesdocumented as of this encounter (statuses as of 04/09/2021) Medications Medication Sig Dispensed Refills Start Date [...] Active Ipratropium [place] 0.02 % Inhalation Solution (Atrovent)Indication s:Stage 3 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 ([facility]) Inhale 2.5 mL via nebulizer [...] :Stage 3 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 Was drinking 8 per day. Food Insecurity [...] encounter Miscellaneous Notes * Telephone Encounter - Nury Devlin OSA - 04/08/2021 12:17 PM EDT Error. documented in this encounter Plan of Treatment Upcoming Encounters Date Type Specialty Care Team Description 04/15/2021 Imaging Radiology 08/05/2021 Pharmacy Inker, Pharmacy Reimbursement [address] [facility] [place] [address] 09/08/2021 Pharmacy Inker, Pharmacy Reimbursement [address] [place] [address] Health Maintenance Due Date Last Done Comments Zoster Vaccines (1 of 2) 1992 *ADVANCE DIRECTIVE NOT ON FILE 09/25/2020 *DEPRESSION SCREENING,ANNUAL FOR PTS 12 AND OVER 11/14/2020 DIABETES SCREEN EVERY 3 YRS-AGE 45 AND ABOVE 12/27/2023 12/26/2020, 12/27/2017, 06/23/2017, Additional history exists DTaP,Tdap,and Td Vaccines (2 - Td) 10/21/2027 10/20/2017 Pneumococcal Vaccine: 65+ Years Completed 10/20/2017, 04/27/2017 COVID-19 Vaccine Completed 01/24/2021, 10/07/2020 Influenza Vaccine (FLU shot) Completed , 04/12/2019, 02/28/2018, Additional history exists MENINGOCOCCAL (MENACTRA/MENVEO) Aged Out No longer eligible based on patient's age to complete this topic documented as of this encounter Implants Not on filedocumented as of this encounter Advance Directives Documents on File Type Date Recorded Patient Sales Engagement Executive Expl anation Advanced Directive service a emelia [...]
--- OUTSIDE RECORDS SUMMARY | 2023-04-08 23:14 | External Medical Summary | Summary of Care ---
Author Name Unknown Organization [place] [address] Care Team Providers Care Cutter Hot Knife Name Role Phone Kavya Dillard Primary Care Provider Reason for Visit * Reason Comments Follow Up Encounter Details Date Type Department Care Team Description 04/01/2021 Office Visit Family [facility] [address] [facility] [place] [address] Kavya Dillard CRNP [address] [place] [address] [phone] Chronic respiratory failure with hypoxia, on home O2 therapy (HCC)*; COPD, group D, by GOLD 2017 classification (HCC); History of Pseudomonas pneumonia; History of tobacco use; Pulmonary HTN (HCC); Centrilobular emphysema ([facility]) Allergies No Known Active Allergiesdocumented as of this encounter (statuses as of 04/01/2021) Medications Medication Sig Dispensed Refills Start Date [...] heartburn 60 Tab 5 8 Active Ipratropium [place] 0.02 % Inhalation Solution (Atrovent)Indicati ons:Stage 3 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 ([facility]) Inhale 2.5 mL via [...] mouth daily. 30 Tab 11 1 Active Thiamine HCl 100 MG Oral Tablet (vitamin B-1) Take 1 Tab by mouth daily. 90 Tab 1 1 Active Folic Acid 1 MG Oral [...] Respimat 1.25 MCG/ACT Inhalation Aerosol Solution (Tiotropium [place] Monohydrate) INHALE 2 PUFFS BY MOUTH EVERY DAY 12 g 1 1 Active oxygen IN GASIndications:Inc to 4LPM with ambulation/exertio n 2.5 lpm at rest 3 LPM continuous oxygen with exertion DME: [facility] Indications: Inc to 4LPM with ambulation/exertio n 1 Each 0 1 Active Albuterol Sulfate HFA 108 (90 Base) MCG/ACT Inhalation Aerosol SolutionIndication s:SOB (shortness of breath) Inhale 2 Puffs by mouth every 4 hours as needed for Shortness of Breath or Wheezing. 54 g 3 1 021 Discontinued oxygen IN GASIndications:Inc to 4LPM with ambulation/exertio n 2.5 lpm at rest 3 LPM continuous oxygen with exertion Dme: [facility] Indications: Inc to 4LPM with ambulation/exertio n 1 Each 0 1 021 Discontinued(Re fill) documented as of this encounter (statuses as of 04/01/2021) Active Problems Problem Noted Date Pulmonary HTN [...] as of this encounter (statuses as of 04/01/2021) Resolved Problems Problem Noted Date Resolved Date [...] as of this encounter (statuses as of 04/01/2021) Immunizations Name Administration Dates Next Due PPD [...] Sign Reading Time Taken Comments Blood Pressure 128/62 04/01/2021 12:45 PM EDT Pulse 108 04/01/2021 12:45 PM EDT Temperature 36.6 C (97.8 F) 04/01/2021 12:45 PM E DT Respiratory Rate 20 04/01/2021 12:45 PM EDT Oxygen Saturation 89% 04/01/2021 12:45 PM EDT Inhaled Oxygen Concentration - - Weight - - Height - - Body Mass Index - - documented in this encounter Progress Notes * Kavya Dillard CRNP - 04/01/2021 12:44 PM EDT FOLLOW UP PULMONARY OUTPATIENT CONSULTATION NOTE History of Present Illness: Jer Abreu Jr. is a 80 year old male presenting for follow up of COPD. He is here with SonIgnacio Orozco. Interim History: Still taking prednisone 4 mg daily On spiriva On adviar Using nebulizer 2 Still using flutter device He was unable to get continuous oxygen or nocturnal oximetry done Respiratory Symptoms: Cough: INTERMITTENTLY Sputum: still great Dyspnea:unchanged Hemoptysis: denies Wheeze: not to bad Triggers: humidity Orthopnea: denies Oxygen: 3LPM CPAP/BIPAP use:denies GERD symptomsdenies Sinus Symptoms:denies Tobacco use: Social History Tobacco Use Smoking Status Former Smoker Packs/day: 2.00 Years: 59.00 Pack years: 118.00 Types: Cigarettes Start date: 1954 Quit date: 04/07/2016 Years since quittin.9 Smokeless Tobacco Never Used Tobacco Comment started age 16 PMH: Patient Active Problem List Diagnosis Code ADVANCE DIRECTIVE INFORMATION History of tobacco use Z87.891 Edentulous K08.109 COPD, group D, by GOLD 2017 classification ([facility]) J44.9 Oxygen dependent Z99.81 Chronic respiratory failure with hypoxia, on home O2 therapy ([facility]) J96.11, Z99.81 Gastroesophageal reflux disease with esophagitis K21.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 hydrocortisone acetate (ANUSOL-HC) 25 MG suppository Administer 25 mg into the rectum 2 times aday as needed for Hemorrhoids. Multiple Vitamins-Minerals (MULTIVITAMIN ADULTS) TABS Take by mouth daily. roflumilast (DALIRESP) 500 MCG Tablet Take 500 mcg by mouth daily. famotidine (PEPCID AC) 10 MG Tablet Take 1 Tab by mouth 2 times a day. For heartburn 60 Tab 5 Albuterol Sulfate HFA 108 (90 Base) MCG/ACT Inhalation Aerosol Solution Inhale 2 Puffs by mouthevery 4 hours as needed for Shortness of Breath or Wheezing. 54 g 3 Ipratropium [place] 0.02 % Inhalation Solution (Atrovent) Inhale 2.5 mL via nebulizer 3 times aday. Diagnosis code J44.9 Stage 3 Sever COPD by Gold classification HCC. Diagnosis code J96.11 Chronic Resp Failure with hypoxia on home oxygen therapy. 270 mL 4 Fluticasone-Salmeterol 250-50 MCG/DOSE Inhalation Aerosol Powder Breath Activated (Advair Diskus) Inhale 1 Puff by mouth 2 times a day. Brand necessary 3 Each 3 Ventolin HFA 108 (90 Base) MCG/ACT Inhalation Aerosol Solution Inhale 2 Puffs by mouth every 4 hours as needed for Wheezing. Brand necessary 54 g 3 Fluticasone-Salmeterol 250-50 MCG/DOSE Inhalation Aerosol Powder Breath Activated (Advair Diskus) 1 Puff. B-12 100 MCG Oral Tablet Take 100 mcg by mouth daily. 30 Tab 11 Thiamine HCl 100 MG Oral Tablet (vitamin B-1) Take 1 Tab by mouth daily. 90 Tab 1 oxygen IN GAS 2.5 lpm at rest 3 LPM continuous oxygen with exertion [facility] Indications: Inc to 4LPM with ambulation/exertion 1 Each 0 Folic Acid 1 MG Oral Tablet TAKE 1 TABLET BY MOUTH EVERY DAY 90 Tab 1 Levalbuterol HCl 1.25 MG/3ML Inhalation Nebulization Solution (Xopenex) INHALE 1 AMPULE VIA NEBULIZER 3 TIMES A DAY. 810 mL 1 Spiriva Respimat 1.25 MCG/ACT Inhalation Aerosol Solution (Tiotropium [place] Monohydrate) INHALE 2 PUFFS BY MOUTH EVERY DAY 12 g 1 No current facility-administered medications for this visit. Review of patient's allergies indicates: No Known Allergies Past Surgical History: Procedure Laterality Date CT CHEST W CONTRAST 06/20/2017 emphysematous change with scattered interstitial and parenchymal fibrosis, superimposed infiltrative /nodular process left base CTA CHEST NON-CORONARY W CONTRAST 04/23/2017 no PE small focal consolidation in LLL, likely pneumonia ECHO, COMPLETE (2D), TRANS-THORACIC 04/23/2017 normal LV size and function, EF 55-60% REMOVE CATARACT, INSERT LENS PROSTH Right 06/12/2019 [facility] REMOVE CATARACT, INSERT LENS PROSTH Left 06/26/2019 [facility] Review of Systems: Review of Systems Constitutional: Negative for chills and fatigue. HENT: Negative for congestion. Cardiovascular: Positive for leg swelling. Negative for chest pain and palpitations. Neurological: Positive for numbness. Psychiatric/Behavioral: Negative for sleep disturbance. Physical Exam: Physical Exam Constitutional: Comments: Lean, seated in wc HENT: Head: Normocephalic. Cardiovascular: Rate and Rhythm: Normal rate and regular rhythm. Pulmonary: Effort: Pulmonary effort is normal. Breath sounds: Examination of the right-upper field reveals decreased breath sounds. Examination ofthe left-upper field reveals decreased breath sounds. Examination of the right-middle field revealsdecreased breath sounds. Examination of the right-lower field reveals decreased breath sounds. [place] of the left-lower field reveals decreased breath sounds. Decreased breath sounds present. Neurological: Mental Status: He is alert and oriented to person, place, and time. Psychiatric: Attention and Perception: Attention normal. Mood and Affect: Mood normal. Speech: Speech normal. Behavior: Behavior normal. Behavior is cooperative. Thought Content: Thought content normal. Cognition and Memory: Cognition and memory normal. Judgment: Judgment normal. DATA: All data is obtained from chart. Interpreting physician attached to each report. Assessment and Plan: 1. Chronic respiratory failure with hypoxia, on home O2 therapy (HCC) On 2.5 lpm 28/12 Change to continuous O2 with exertion Consider blood gas Recommend check of NPO-3rd request to DME - NOCTURNAL HOME OXIMETRY (OP) 2. COPD, group D, by GOLD 2017 classification (HCC) On chronic daily prednisone- 4 MG PER IVONNE CRABTREE AT [facility] Continue spiriva 2 sprays daily Continue advair Continue levalbuterol every 8 hours Continue atrovent every 8 hours Managed by [facility] Recommend pulmonary toilet- Continue flutter Consider pneumovest 3. History of Pseudomonas pneumonia Colonized and likely the cause of his persistent green mucous No daily antibiotics at this time 4. History of tobacco use 5. Pulmonary HTN (HCC) Noted on recent echo 6. Centrilobular emphysema (HCC) - NOCTURNAL HOME OXIMETRY (OP) I have advised the patient to call our office incase of any worsening or new symptoms. I spent a total of 30-39 minutes (exact time 30 mins) on the date of service in preparation, delivery, and documentation of the care provided to Jer Abreu Jr. excluding any time spent in the performance of separately billed services. Randy, MSN, SERVICE CREW SUPERVISOR [facility] Pulmonary and Sleep Medicine documented in this encounter Nursing Notes * Shannan Posey LPN - 04/01/2021 12:45 PM EDT The patient has been properly identified by confirmation of name and date of . Chief Complaint Patient presents with Follow Up documented in this encounter Plan of Treatment Upcoming Encounters Date Type Specialty Care Team Description 08/05/2021 Pharmacy Rhit, Pharmacy Reimbursement [address], [place] [id number] 09/08/2021 Pharmacy Rhit, Pharmacy Reimbursement [address] [place], [place] [id number] Scheduled Orders Name Type Priority Associated Diagnoses Orde r Schedule NOCTURNAL HOME OXIMETRY (OP) Procedures Routine Centrilobular emphysema (HCC) Chronic respiratory failure with hypoxia, on home O2 therapy (HCC) Ordered: 04/01/2021 Health Maintenance Due Date Last Done Comments [...] group D, by GOLD 2017 classification (HCC) History of Pseudomonas pneumonia Personal history of pneumonia (recurrent) History of tobacco use Personal history of tobacco use, presenting hazards to health Pulmonary HTN (HCC) Other chronic pulmonary heart diseases Centrilobular emphysema (HCC) Other emphysema documented in this encounter Advance Directives Documents on File Type Date Recorded 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
--- OUTSIDE RECORDS SUMMARY | 2023-04-08 23:14 | External Medical Summary | Summary of Care ---
Author Name Unknown Organization [place] [address] Care Team Providers Care Timber Estimator Name Role Phone Kavya Dillard Primary Care Provider Reason for Visit * Reason Comments Follow Up Encounter Details Date Type Department Care Team Description 04/01/2021 Office Visit Family [facility] [address] [facility] [place] [address] Kavya Dillard CRNP [address] [place] [address] [phone] Chronic respiratory failure with hypoxia, on home O2 therapy (HCC)*; COPD, group D, by GOLD 2017 classification (HCC); History of Pseudomonas pneumonia; History of tobacco use; Pulmonary HTN (HCC); Centrilobular emphysema ([facility]) Allergies No Known Active Allergiesdocumented [...] heartburn 60 Tab 5 8 Active Ipratropium [place] 0.02 % Inhalation Solution (Atrovent)Indicati ons:Stage 3 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 ([facility]) Inhale 2.5 mL via nebulizer [...] failure with hypoxia, on home O2 therapy ([facility]) TAKE 1 TABLET BY MOUTH EVERY DAY 90 Tab 1 1 Active Levalbuterol HCl 1.25 MG/3ML Inhalation Nebulization Solution (Xopenex)Indicatio ns:Stage 3 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 ([facility]) INHALE 1 AMPULE VIA NEBULIZER 3 TIMES A DAY. 810 mL 1 1 Active Spiriva Respimat 1.25 MCG/ACT Inhalation Aerosol Solution (Tiotropium [place] Monohydrate) INHALE 2 PUFFS BY MOUTH EVERY DAY 12 g 1 1 Active oxygen IN GASIndications:Inc to 4LPM with ambulation/exertio n 2.5 lpm at rest 3 LPM continuous oxygen with exertion DME: [facility] Indications: Inc to 4LPM with ambulation/exertio [...] group D, by GOLD 2017 classification ([facility]) J44.9 Oxygen dependent Z99.81 Chronic respiratory failure with hypoxia, on home O2 therapy ([facility]) J96.11, Z99.81 Gastroesophageal reflux disease with esophagitis 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 54 g 3 Ipratropium [place] 0.02 % Inhalation Solution (Atrovent) Inhale 2.5 [...] LPM continuous oxygen with exertion [facility] Indications: Inc to 4LPM with ambulation/exertion 1 Each 0 Folic Acid 1 MG Oral Tablet TAKE 1 TABLET BY MOUTH EVERY DAY 90 Tab 1 Levalbuterol HCl 1.25 MG/3ML Inhalation Nebulization Solution (Xopenex) INHALE 1 AMPULE VIA NEBULIZER 3 TIMES A DAY. 810 mL 1 Spiriva Respimat 1.25 MCG/ACT Inhalation Aerosol Solution (Tiotropium [place] Monohydrate) INHALE 2 PUFFS BY MOUTH EVERY [...] REMOVE CATARACT, INSERT LENS PROSTH Right 06/12/2019 [facility] REMOVE CATARACT, INSERT LENS PROSTH Left 06/26/2019 [facility] Review of Systems: Review of Systems Constitutional: [...] prednisone- 4 MG PER IVONNE CRABTREE AT [facility] Continue spiriva 2 sprays daily Continue advair Continue levalbuterol every 8 hours Continue atrovent every 8 hours Managed by [facility] Recommend pulmonary toilet- Continue flutter Consider pneumovest [...] performance of separately billed services. Randy, MSN, SENIOR BI ARCHITECT [facility] [place] Pulmonary and Sleep Medicine documented in this encounter Nursing Notes * Shannan Poesy LPN - 04/01/2021 12:45 PM EDT The patient has been properly identified by confirmation of name and date of . Chief Complaint Patient presents with Follow Up documented in this encounter Plan of Treatment Upcoming Encounters Date Type Specialty Care Team Description 08/05/2021 Pharmacy Surety Bond Agent, Pharmacy Reimbursement [address] [place], [place] [phone] 09/08/2021 Pharmacy Surety Bond Agent, Pharmacy Reimbursement [address] [place], [place] [phone] Scheduled Orders Name Type Priority Associated Diagnoses [...] Documents on File Type Date Recorded Patient Inside Sales Administrator 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 Advanced Directive Advanced Directive Advanced Directive Advanced Directive Advanced Directive Advanced Directive Advanced Directive Advanced Directive Advanced Directive Advanced Directive Advanced Directive Advanced Directive Advanced Directive Advanced Directive Advanced Directive Advanced Directive Advanced Directive Advanced Directive Advanced Directive
--- OUTSIDE RECORDS SUMMARY | 2023-04-08 23:14 | External Medical Summary | Summary of Care ---
Author Name Unknown Organization [place] [address] Care Team Providers Care Non Garment Sewing Machine Operator Name Role Phone Kavya Dillard Primary Care Provider Reason for Visit * Reason Onset Date Comments TRIAGE 04/07/2021 Encounter Details Date Type Department Care Team Description 04/07/2021 Telephone Ophthalmology, [facility] [address] [place] [address] Services, Scheduling [address] [place] [address] TRIAGE Allergies No Known Active Allergiesdocumented as of this encounter (statuses as of 04/08/2021) Medications Medication Sig Dispensed Refills Start Date [...] heartburn 60 Tab 5 06/01/2018 Active Ipratropium [place] 0.02 % Inhalation Solution (Atrovent)Indication s:Stage 3 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 ([facility]) Inhale 2.5 mL via nebulizer [...] :Stage 3 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 ([facility]) INHALE 1 AMPULE VIA NEBULIZER 3 TIMES A DAY. 810 mL 1 03/11/2021 Active Spiriva Respimat 1.25 MCG/ACT Inhalation Aerosol Solution (Tiotropium [place] Monohydrate) INHALE 2 PUFFS BY MOUTH EVERY DAY 12 g 1 03/20/2021 Active oxygen IN GASIndications:Inc to 4LPM with ambulation/exertion 2.5 lpm at rest 3 LPM continuous oxygen with exertion DME: [facility] Indications: Inc to 4LPM with ambulation/exertion 1 Each 0 04/01/2021 Active documented as of this encounter (statuses as of 04/08/2021) Active Problems Problem Noted Date Pulmonary HTN [...] as of this encounter (statuses as of 04/08/2021) Resolved Problems Problem Noted Date Resolved Date [...] as of this encounter (statuses as of 04/08/2021) Immunizations Name Administration Dates Next Due PPD [...] Encounter - Nury Devlin OSA - 04/08/2021 10:26 AM EDT LM for pt offer appt 100 today. Made Jina office aware. * Telephone Encounter - Bree Holguin OSA - 04/07/2021 4:[address] 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 Pt does not have blood flow to his retinas and would like pt seen tomorrow or Wednesday. Faxing notes to office tomorrow morning. Pt can not come to the office on . Can you please triage and advise? Office would like a call back with the appt info as well. Kimberlyn [phone]. Thank you documented in this encounter Plan of Treatment Upcoming Encounters Date Type Specialty Care Team Description 04/08/2021 Office Visit Ophthalmology Zac Orellana, DO [address] [place] [address] [phone] 08/05/2021 Pharmacy Director Of Perioperative Services, [facility] [address] [facility] [phone] 09/08/2021 Pharmacy Director Of Perioperative Services, Pharmacy Reimbursement [address] [place] [address] [phone] Health Maintenance Due Date Last Done Comments [...] Documents on File Type Date Recorded Patient Aquatics Director Expl anation Advanced Directive service a [...]
--- OUTSIDE RECORDS SUMMARY | 2023-04-08 23:14 | External Medical Summary | Summary of Care ---
Author Name Unknown Organization [place] [address] Care Team Providers Care Snow Removing Supervisor Name Role Phone Kavya Dillard Primary Care Provider Reason for Visit * Reason Onset Date Comments Med Request 04/08/2021 Encounter Details Date Type Department Care Team Description 04/08/[address] [facility] [address] [place] [address] Kavya Dillard CRNP [address] [place] [address] Med Request Allergies No Known Active Allergiesdocumented as of [...] heartburn 60 Tab 5 06/01/2018 Active Ipratropium [place] 0.02 % Inhalation Solution (Atrovent)Indication s:Stage 3 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 ([facility]) Inhale 2.5 mL via nebulizer 3 times a day. Diagnosis code J44.9 Stage 3 Sever COPD by Gold classification [facility]. Diagnosis code J96.11 Chronic Resp [...] on home O2 therapy ([facility]) TAKE 1 TABLET BY MOUTH EVERY DAY 90 Tab 1 01/24/2021 Active Levalbuterol HCl 1.25 MG/3ML Inhalation Nebulization Solution (Xopenex)Indications :Stage 3 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 ([facility]) INHALE 1 AMPULE VIA NEBULIZER 3 TIMES A DAY. 810 mL 1 03/11/2021 Active Spiriva Respimat 1.25 MCG/ACT Inhalation Aerosol Solution (Tiotropium [place] Monohydrate) INHALE 2 PUFFS BY MOUTH EVERY DAY 12 g 1 03/20/2021 Active oxygen IN GASIndications:Inc to 4LPM with ambulation/exertion 2.5 lpm at rest 3 LPM continuous oxygen with exertion DME: [facility] Indications: Inc to 4LPM with ambulation/exertion [...] encounter Miscellaneous Notes * Telephone Encounter - Adelaide Shields PHARM Tech - 04/08/2021 4:02 PM EDT Pt's son called stating that [facility] in [place] never got the request for the straight oxygen, please advise. Thank you, Adelaide Shields, Secondary School Teacher [facility] Telepharmacy 04/08/2021,4:03 PM documented in this encounter Plan of Treatment Upcoming Encounters Date Type Specialty Care Team Description 04/15/2021 Imaging Radiology 08/05/2021 Pharmacy Video Poker [place], Pharm[facility] Reimbursement [address] [facility] [place] [address] [phone] 09/08/2021 Pharmacy Video Poker [place], Pharmacy Reimbursement [address] [facility] [place] [address] [phone] Health Maintenance Due Date Last Done Comments [...] Documents on File Type Date Recorded Patient Christian Science Reader Expl anation Advanced Directive service a emelia [...]
--- OUTSIDE RECORDS SUMMARY | 2023-04-08 23:14 | External Medical Summary | Summary of Care ---
Author Name Unknown Organization [place] [address] Care Team Providers Care Sports Management Internship Name Role Phone Kavya Dillard Primary Care Provider Reason for Visit * Reason Onset Date Comments Med Request 04/08/2021 Encounter Details Date Type Department Care Team Description 04/08/2021 Telephone Family Practice [facility] [address] [place] [address] Kavya Dillard CRNP [address] [place] [address] Med Request Allergies No Known [...] heartburn 60 Tab 5 06/01/2018 Active Ipratropium [place] 0.02 % Inhalation Solution (Atrovent)Indication s:Stage 3 [...] :Stage 3 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 ([facility]) INHALE 1 AMPULE VIA NEBULIZER 3 TIMES A DAY. 810 mL 1 03/11/2021 Active Spiriva Respimat 1.25 MCG/ACT Inhalation Aerosol Solution (Tiotropium [place] Monohydrate) INHALE 2 PUFFS BY MOUTH EVERY DAY 12 g 1 03/20/2021 Active oxygen IN GASIndications:Inc to 4LPM with ambulation/exertion 2.5 lpm at rest 3 LPM continuous oxygen with exertion DME: [facility] Indications: Inc to 4LPM [...] encounter Miscellaneous Notes * Telephone Encounter - Lyssa Long MED ASSIST - 04/09/2021 8:17 AM EDT Order and office notes faxed. * Telephone Encounter - Adelaide Shields PHARM Tech - 04/08/2021 4:02 PM EDT Pt's son called stating that [facility] in [place] never got the request for the straight oxygen, please advise. Thank you, Adelaide Shields, Admission Liaison [facility] Telepharmacy 04/08/2021,4:03 PM documented in this encounter Plan of Treatment Upcoming Encounters Date Type Specialty Care Team Description 04/15/2021 Imaging Radiology 08/05/2021 Pharmacy Marketing Recruiter, Pharmacy Reimbursement [address] [place] [address] 09/08/2021 Pharmacy Marketing Recruiter, Pharmacy Reimbursement [address] [place] [address] [phone] Health Maintenance Due Date Last Done Comments [...] Documents on File Type Date Recorded Patient Undercutter Operator Expl anation Advanced Directive service a [...]
--- OUTSIDE RECORDS SUMMARY | 2023-04-08 23:14 | External Medical Summary | Summary of Care ---
Author Name Unknown Organization [place] [address] Care Team Providers Care Equipment Lead Name Role Phone Kavya Jacinto Yoanna TUCKER Primary Care Provider Reason for Visit * Reason Comments eRx-Medication Refill Encounter Details Date Type Department Care Team Description 03/09/2021 Refill Family Practice [address] [place] [address] Alan Meyers MD [address] [place] [address] [place] [address] Stage 3 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 (H[facility]) Allergies No Known Active Allergiesdocumented as of this encounter (statuses as of 03/11/2021) Medications Medication Sig Dispensed Refills Start Date [...] For heartburn 60 Tab 5 8 Active Albuterol Sulfate HFA 108 (90 Base) MCG/ACT Inhalation Aerosol SolutionIndications :SOB (shortness of breath) Inhale 2 Puffs by mouth every 4 hours as needed for Shortness of Breath or Wheezing. 54 g 3 1 Active Ipratropium [place] 0.02 % Inhalation Solution (Atrovent)Indicatio ns:Stage 3 [...] (Advair Diskus) 1 Puff. 0 8 Active Spiriva Respimat 1.25 MCG/ACT Inhalation Aerosol Solution (Tiotropium [place] Monohydrate) Inhale 2 Puffs by mouth daily. 12 g 1 1 Active B-12 100 MCG Oral Tablet Take 100 mcg by mouth daily. 30 Tab 11 1 Active Thiamine HCl 100 MG Oral Tablet (vitamin B-1) Take 1 Tab by mouth daily. 90 Tab 1 1 Active oxygen IN GASIndications:Inc to 4LPM with ambulation/exertion 2.5 lpm at rest 3 LPM continuous oxygen with exertion Dme: [facility] Indications: Inc to 4LPM with ambulation/exertio n 1 Each 0 1 Active Folic Acid 1 MG Oral TabletIndications:C hronic respiratory failure with hypoxia, on home O2 therapy ([facility]) TAKE 1 TABLET BY MOUTH EVERY DAY 90 Tab 1 1 Active Levalbuterol HCl 1.25 MG/3ML Inhalation Nebulization Solution (Xopenex)Indication s:Stage 3 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 ([facility]) INHALE 1 AMPULE VIA NEBULIZER 3 TIMES A DAY. 810 mL 1 1 Active Levalbuterol HCl 1.25 MG/3ML Inhalation Nebulization Solution (Xopenex)Indication s:Stage 3 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 ([facility]) Inhale 1 Ampule via nebulizer 3 times a day. Diagnosis code J44.9 Stage 3 Sever COPD by Gold classification [facility]. Diagnosis code J96.11 Chronic Resp Failure with hypoxia on home oxygen therapy. 270 mL 4 1 03/11/20 21 Discontinued documented as of this encounter (statuses as of 03/11/2021) Active Problems Problem Noted Date Fibrosis of lung 09/23/2020 History of Pseudomonas [...] as of this encounter (statuses as of 03/11/2021) Resolved Problems Problem Noted Date Resolved Date [...] as of this encounter (statuses as of 03/11/2021) Immunizations Name Administration Dates Next Due PPD [...] Notes * Telephone Encounter - Louise Estes [facility] - 03/11/2021 12:51 PM EDT Signed Prescriptions: Disp Refills Levalbuterol HCl 1.25 MG/3ML Inhalation Ne*810 mL 1 Sig: INHALE 1 AMPULE VIA NEBULIZER 3 TIMES A DAY.Authorizing Provider: KAVYA JACINTO User: LOUISE ESTES documented in this encounter Plan of Treatment Upcoming Encounters Date Type Specialty Care Team Description 03/26/2021 Office Visit Family Medicine [place], GARRETT Brito [address] [place] [address] [phone] 08/05/2021 Pharmacy All Round Logger, Pharmacy Reimbursement [address] [place] [address] [phone] 09/08/2021 Pharmacy All Round [place], Pharmacy Reimbursement [address] [place], [place] [id number] Health Maintenance Due Date Last Done Comments [...] Documents on File Type Date Recorded Patient Lead Applier 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 Advanced Directive Advanced Directive Advanced Directive Advanced Directive Advanced Directive Advanced Directive Advanced Directive Advanced Directive Advanced Directive Advanced Directive Advanced Directive Advanced Directive Advanced Directive Advanced Directive Advanced Directive Advanced Directive Advanced Directive Advanced Directive
--- OUTSIDE RECORDS SUMMARY | 2023-04-08 23:14 | External Medical Summary | Summary of Care ---
Author Name Unknown Organization [place] [address] Care Team Providers Care Risk Control Officer Name Role Phone [place]ma Kavya TUCKER Primary Care Provider Reason for Visit * Reason Comments NEW PATIENT * Evaluate & Treat - Unlimited Visits (Within 24 hrs (call dept; emergent)) Status Reason Specialty Diagnoses / Procedures Referred By Contact Referred To Contact Closed Specialty Services Required Ophthalmology Diagnoses Neovascular glaucoma of both eyes Vannessa Muro, OD [address] [place] [address] Zac Orellana DO [address] [place] [address] Encounter Details Date Type Department Care Team Description 04/08/2021 Office Visit Ophthalmology, [facility] [address] [facility] [place] [address] Zac Orellana DO [address] [place] [address] [phone] 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, right eye*; Visual distortions of shape and size; Ocular ischemic syndrome Allergies No Known Active Allergiesdocumented as of this encounter (statuses as of 04/11/2021) Medications Medication Sig Dispensed Refills Start Date [...] 60 Tab 5 06/01/2018 Active Ipratropium [place] 0.02 % Inhalation Solution (Atrovent)Indication s:Stage 3 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 ([facility]) Inhale 2.5 mL via nebulizer [...] failure with hypoxia, on home O2 therapy ([facility]) TAKE 1 TABLET BY MOUTH EVERY DAY 90 Tab 1 01/24/2021 Active Levalbuterol HCl 1.25 MG/3ML Inhalation Nebulization Solution (Xopenex)Indications :Stage 3 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 ([facility]) INHALE 1 AMPULE VIA NEBULIZER 3 TIMES A DAY. 810 mL 1 03/11/2021 Active Spiriva Respimat 1.25 MCG/ACT Inhalation Aerosol Solution (Tiotropium [place] Monohydrate) INHALE 2 PUFFS BY MOUTH EVERY DAY 12 g 1 03/20/2021 Active oxygen IN GASIndications:Inc to 4LPM with ambulation/exertion 2.5 lpm at rest 3 LPM continuous oxygen with exertion DME: [facility] Indications: Inc to 4LPM with ambulation/exertion 1 Each 0 04/01/2021 Active predniSONE 1 MG Oral Tablet (Deltasone) 0 03/16/2021 Active documented as of this encounter (statuses as of 04/11/2021) Active Problems Problem Noted Date Pulmonary HTN [...] as of this encounter (statuses as of 04/11/2021) Resolved Problems Problem Noted Date Resolved Date [...] as of this encounter (statuses as of 04/11/2021) Immunizations Name Administration Dates Next Due PPD [...] Given: No Comments:started age 16 Alcohol Use Drinks/Week oz/Week [...] Sign Reading Time Taken Comments Blood Pressure 115/75 04/08/2021 2:07 PM EDT Pulse 120 04/08/2021 2:07 PM EDT Temperature - - Respiratory Rate - - Oxygen Saturation - - Inhaled Oxygen Concentration - - Weight - - Height - - Body Mass Index - - documented in this encounter Progress Notes * Zac Orellana, - 04/08/2021 1:08 PM EDT [facility] [place] Nursing notes reviewed. Eye vitals reviewed. Mood and Affect: normal HPI: Jer Abreu Jr. is a 80 year old male who presents for evaluation of retina. CC: 'My eye is red and sore.' Vision: decreased Location (of CC): OD Quality/Severity: moderate Duration: 3 months Timing: gradual Context: nonspecific Associated Signs/Symptoms: none Modifying Factors: none No other eye complaints. Denies significant pain. Base Eye Exam Visual Acuity (Snellen - Linear) Right Left Dist cc 20/50 20/25 -2 Dist ph cc ni Tonometry (Tonopen, 1:09 PM) Right Left Pressure 8 10 Pupils Light Shape React APD Right 4 Round Brisk Trace Left 2 Round Slow None Visual Rodriguez (Counting fingers) Right Left Full Full Extraocular Movement Right Left Full Full EXTERNAL: The ocular adnexae are unremarkable. SLE: Lids/Lashes: wnl OU Conjunctiva/Sclera: quiet OU Cornea: clear OU Anterior Chamber: deep and trace cell w/ 2+flare OD; deep and quiet OS Iris: prominent iris vasculature OD (compared to OS); nml OS; no NVI OU Lens: PCIOL OU GONIOSCOPY: OD: open to CB, no NVA OS: open to CB, no NVA Dilated fundus exam OD: vitreous: clear optic nerve: 0.3, no edema/pallor/NVD macula: wnl vessels: av 1:2 periphery: wnl, no RT/RD Dilated fundus exam OS: vitreous: clear optic nerve: 0.3, no edema/pallor/NVD macula: wnl vessels: av 1:2 periphery: wnl, no RT/RD OCT Interpretation: OD: trace cysts, no pvd OS: no cme/srfluid , no pvd A/P: 1. 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 Muro) -t/c FA pending carotid duplex results F/u w/ me pending results of carotid ultrasound REBECCA Padilla scribing under the direction of Dr. Zac Orellana. This note is prepared by REBECCA Padilla acting as a scribe for me. The scribe's documentation has been prepared under my direction and personally reviewed by me in its entirety. I confirm thatthe note above accurately reflects all work, treatment, procedures and medical decision making performed by me. Zac Orellana DO 0408 Note/letter to: Vannessa Muro, OD CC: PCP: GARRETT Fabian documented in this encounter Nursing Notes * Kari Santana RN - 04/08/2021 1:10 PM EDT Jer Abreu Jr. is a 80 year old year old male referred by Dr Usha Muro to evaluate for possible Retinal eval*. Patient's name preference, 'Daniel'. MyG User Status: Active Have you addressed [facility] with the patient? Yes Patient currently states "Right eye getting red and sore started 3 months ago with bright lights once in a while , so went to see Dr Muro yesterday advice to see retina specialist" COMPREHENSIVE OCULAR HISTORY Any history in yourself or blood related family of: -Blindness- No -Macular Degeneration- No -Retinal Detachment- No -Glaucoma/Pressure in the Eye- No -Have you ever had any major surgery of serious injury of or around the eyes- no FAMILY HISTORY: Family History Problem Relation Age of Onset Cancer Sister Cancer Brother Diabetes No significant family history Ear Problems No significant family history Endocrine Disorder No significant family history Eye Problems No significant family history Heart Disorder No significant family history Hypertension No significant family history Lung Disorder No significant family history Renal Hx No significant family history Stroke No significant family history SOCIAL HISTORY: Social History Tobacco Use Smoking status: Former Smoker Packs/day: 2.00 Years: 59.00 Pack years: 118.00 Types: Cigarettes Start date: 1954 Quit date: 04/07/2016 Years since quittin.0 Smokeless tobacco: Never Used Tobacco comment: started age 16 Substance Use Topics Alcohol use: Yes Comment: 3-4 beers per day. Was drinking 8 per day. Drug use: No Vaping/E-Cigarette Use Vaping/E-Cigarette Use Never User Vaping/E-Cigarette Substances Vaping/E-Cigarette Devices PMH: Past Medical History: Diagnosis Date Acute exacerbation of COPD with asthma ([facility]) 04/23/2017 [facility] Arthritis Edentulous Gastroesophageal reflux disease with esophagitis Herpes zoster 01/11/2019 right neck and scalp Inflammation of sacroiliac joint ([facility]) 04/24/2005 Loss of teeth due to trauma, extraction, or periodontal disease Other abnormal glucose 04/23/2005 glucose 156 Other abnormal glucose 02/22/2008 glucose 167 Other disorders of vitreous 12/2000 Posterior vitreous detachment OS Other specified disorders of rotator cuff syndrome of shoulder and allied disorders 05/2004 right shoulder Pneumonia 06/13/2017 left basal infiltrate Pneumonia due to Pseudomonas ([facility]) 05/20/2017 Severe chronic obstructive pulmonary disease ([facility]) 10/28/2016 severe by ATS criteria. 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 Constitutional : No weight loss, feeling tired, fever. 2. HENT: Positive for hearing loss 3. Cardio: No CA, CHF, Aneurysm. 4. Pulm: Positive for Severe COPD, oxygen dependent 5. GI: No ulcers. 6. : No protein in urine, dialysis, kidney stones. 7. Neuro: No stroke, seizures. 8. Endo: No thyroid, diabetes. 9. Skin: No rashes, unusual moles. 10. Muscl/skel: Positive for arthritis 11. Eyes: see exam. Phenylephrine Hydrochloride 2.5% and Tropicamide Ophthalmic Solution 1% inserted into Both eyes 1:[address]? yes Patient advised not to drive while eye's are dilated or vision is blurred. Patient/Family verbalizes understanding. documented in this encounter Plan of Treatment Upcoming Encounters Date Type Specialty Care Team Description 04/15/2021 Imaging Radiology 08/05/2021 Pharmacy Fishing Floats Assembler, Pharmacy Reimbursement [address] [place] [facility] [place] [address] [phone] 09/08/2021 Pharmacy Fishing Floats Assembler, Pharmacy Reimbursement [address] [place] [facility] [place] [address] [phone] Scheduled Orders Name Type Priority Associated Diagnoses Orde r Schedule VASC DUPLEX CAROTID BILAT Medical Imaging MAC Ocular ischemic syndrome Expected: 04/15/2021, Expires: 05/08/2022 Health Maintenance Due Date Last [...] Procedure Name Priority Date/Time Associated Diagnosis Comments OPHTHAL IMAGE (SITE) Routine 04/08/2021 Visual distortions of shape and size documented in this encounter Results * OPHTHAL IMAGE (SITE) (04/08/2021) Specimen Narrative Performed At documented in this encounter Visit Diagnoses Diagnosis 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
--- OUTSIDE RECORDS SUMMARY | 2023-04-08 23:14 | External Medical Summary | Summary of Care ---
Author Name Unknown Organization [place] [address] Care Team Providers Care Physician Extender Name Role Phone Kavya Jacinto Primary Care Provider Reason for Visit * Reason Comments eRx-Medication Refill Encounter Details Date Type Department Care Team Description 03/19/2021 Refill Family Practice [facility] [address] [facility] [place] [address] Kavya Jacinto CRNP [address] [place] [address] [phone] Allergies No Known Active Allergiesdocumented as of this encounter (statuses as of 03/20/2021) Medications Medication Sig Dispensed Refills Start Date [...] Wheezing. 54 g 3 1 Active Ipratropium [place] 0.02 % Inhalation Solution (Atrovent)Indicatio ns:Stage 3 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 ([facility]) Inhale 2.5 mL via nebulizer 3 times a day. Diagnosis code J44.9 Stage 3 Sever COPD by Gold classification [facility]. Diagnosis code J96.11 Chronic Resp Failure [...] GOLD classification ([facility]) INHALE 1 AMPULE VIA NEBULIZER 3 TIMES A DAY. 810 mL 1 1 Active Spiriva Respimat 1.25 MCG/ACT Inhalation Aerosol Solution (Tiotropium [place] Monohydrate) INHALE 2 PUFFS BY MOUTH EVERY DAY 12 g 1 1 Active Spiriva Respimat 1.25 MCG/ACT Inhalation Aerosol Solution (Tiotropium [place] Monohydrate) Inhale 2 Puffs by mouth daily. 12 g 1 1 03/20/20 21 Discontinued documented as of this encounter (statuses as of 03/20/2021) Active Problems Problem Noted Date Fibrosis of [...] as of this encounter (statuses as of 03/20/2021) Resolved Problems Problem Noted Date Resolved Date [...] as of this encounter (statuses as of 03/20/2021) Immunizations Name Administration Dates Next Due PPD [...] encounter Miscellaneous Notes * Telephone Encounter - Leilani Gonzalez RPh - 03/20/2021 6:51 PM EDT Signed Prescriptions: Disp Refills Spiriva Respimat 1.25 MCG/ACT Inhalation A*12 g 1 Sig: INHALE 2 PUFFS BY MOUTH EVERY DAYAuthorizing Provider: KAVYA JACINTO User: LEILANI GONZALEZ--- documented in this encounter Plan of Treatment Upcoming Encounters Date Type Specialty Care Team Description 03/26/2021 Office Visit Family Medicine Kavya Jacinto CRNP [address] [place] [address] [phone] 08/05/2021 Pharmacy Regulatory Internship, Pharmacy Reimbursement [address] [place] [address] [phone] 09/08/2021 Pharmacy Regulatory Internship, Pharmacy Reimbursement [address] [place] [address] [phone] Health Maintenance Due Date Last Done Comments [...] Documents on File Type Date Recorded 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
--- OUTSIDE RECORDS SUMMARY | 2023-04-08 23:15 | External Medical Summary | Summary of Care ---
Author Name Unknown Organization [place] [address] Care Team Providers Care Apn Name Role Phone Kavya Dillard Primary Care Provider Encounter Details Date Type Department Care Team Description 01/22/2021 Telephone Family Practice [facility] [address] [place] [address] Kavya Dillard CRNP [address] [place] [address] [phone] Allergies No Known Active Allergiesdocumented as of this encounter (statuses as of 01/30/2021) Medications Medication Sig Dispensed Refills Start Date [...] For heartburn 60 Tab 5 06/01/2018 Active Albuterol Sulfate HFA 108 (90 Base) MCG/ACT Inhalation Aerosol SolutionIndications: SOB (shortness of breath) Inhale 2 Puffs by mouth every 4 hours as needed for Shortness of Breath or Wheezing. 54 g 3 06/11/2020 Active Levalbuterol HCl 1.25 MG/3ML Inhalation Nebulization Solution (Xopenex)Indications :Stage 3 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 ([facility]) Inhale 1 Ampule via nebulizer 3 times a day. Diagnosis code J44.9 Stage 3 Sever COPD by Gold classification [facility]. Diagnosis code J96.11 Chronic Resp Failure with hypoxia on home oxygen therapy. 270 mL 4 07/25/2020 Active Ipratropium Topmost 0.02 % Inhalation Solution (Atrovent)Indication s:Stage 3 [...] (Advair Diskus) 1 Puff. 0 11/16/2017 Active Spiriva Respimat 1.25 MCG/ACT Inhalation Aerosol Solution (Tiotropium [place] Monohydrate) Inhale 2 Puffs by mouth daily. 12 g 1 09/23/2020 Active B-12 100 MCG Oral Tablet Take 100 mcg by mouth daily. 30 Tab 11 11/11/2020 Active Thiamine HCl 100 MG Oral Tablet (vitamin B-1) Take 1 Tab by mouth daily. 90 Tab 1 11/11/2020 Active oxygen IN GASIndications:Inc to 4LPM with ambulation/exertion 2.5 lpm at rest 3 LPM continuous oxygen with exertion Dme: [facility] Indications: Inc to 4LPM with ambulation/exertion 1 Each 0 12/24/2020 Active documented as of this encounter (statuses as of 01/30/2021) Active Problems Problem Noted Date Fibrosis of [...] as of this encounter (statuses as of 01/30/2021) Resolved Problems Problem Noted Date Resolved Date [...] as of this encounter (statuses as of 01/30/2021) Immunizations Name Administration Dates Next Due PPD [...] encounter Miscellaneous Notes * Telephone Encounter - Leigh Ann Virk LPN - 01/23/2021 3:47 PM EDT Spoke to patient, he is aware of all info. * Telephone Encounter - Kavya Dillard CRNP - 01/22/2021 4:53 PM EDT Please notify patient of echo results: Echo shows that he has diastolic dysfunction. Mean there is stiffening of the heart muscle. It alsoconfirms thickening of the right side of the heart and increased pressure in the pulmonary artery. This is called pulmonary hypertension and likely is contributing to his shortness of breath. This is likely caused by his respiratory failure. Randy, MSN, [facility]RETT [facility] documented in this encounter Plan of Treatment Upcoming Encounters Date Type Specialty Care Team Description 03/26/2021 Office Visit Family Medicine Kavya Dillard CRNP 132 [facility] [place] [address] [phone] 08/05/2021 Pharmacy Special Events Assistant, Pharmacy Reimbursement [address] [place] [address] [phone] 09/08/2021 Pharmacy Special Events Assistant, Pharmacy Reimbursement [address] [place] [address] [phone] Health Maintenance Due Date Last Done Comments Zoster Vaccines (1 of 2) 1992 *ADVANCE DIRECTIVE NOT ON FILE 09/25/2020 *DEPRESSION SCREENING,ANNUAL FOR PTS 12 AND OVER 11/14/2020 Influenza Vaccine (FLU shot) (#1) 2021 04/12/2019, 02/28/2018, 03/12/2017, Additional history exists DIABETES SCREEN EVERY 3 YRS-AGE 45 AND ABOVE 12/27/2023 12/26/2020, 12/27/2017, 06/23/2017, Additional history exists DTaP,Tdap,and Td Vaccines (2 - Td) 10/21/2027 10/20/2017 Pneumococcal Vaccine: 65+ Years Completed 10/20/2017, 04/27/2017 COVID-19 Vaccine Completed 01/24/2021, 10/07/2020 MENINGOCOCCAL (MENACTRA/MENVEO) Aged Out No longer eligible based on patient's age to complete this topic documented as of this encounter Implants Not on filedocumented as of this encounter Advance Directives Documents on File Type Date Recorded 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
--- OUTSIDE RECORDS SUMMARY | 2023-04-08 23:15 | External Medical Summary | Summary of Care ---
Author Name Unknown Organization [place] [address] Care Team Providers Care Scratch Brusher Name Role Phone Unavailable Primary Care Provider Unavailabl e Reason for Visit * Reason Onset Date Comments Advice 12/24/2020 Encounter Details Date Type Department Care Team Description 12/24/2020 Telephone Family Practice [facility] [address] [place] [address] Kavya Dillard CRNP [address] [place] [address] [phone] Advice Allergies No Known Active Allergiesdocumented as of this encounter (statuses as of 12/24/2020) Medications Medication Sig Dispensed Refills Start Date [...] s:Stage 3 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 ([facility]) Inhale 1 Ampule via nebulizer 3 times a day. Diagnosis code J44.9 Stage 3 Sever COPD by Gold classification [facility]. Diagnosis code J96.11 Chronic Resp Failure with hypoxia on home oxygen therapy. 270 mL 4 07/25/2020 Active Ipratropium [place] 0.02 % Inhalation Solution (Atrovent)Indicatio ns:Stage 3 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 ([facility]) Inhale 2.5 mL via nebulizer 3 times a day. Diagnosis code J44.9 Stage 3 Sever COPD by Gold classification [facility]. Diagnosis code J96.11 Chronic Resp Failure with hypoxia on home oxygen therapy. 270 mL 4 07/25/2020 Active Folic Acid 1 MG Oral TabletIndications:C hronic respiratory failure with hypoxia, on home O2 therapy ([facility]) TAKE 1 TABLET BY MOUTH EVERY DAY 90 Tab 1 07/29/2020 Active Fluticasone-[place] rol 250-50 MCG/DOSE Inhalation Aerosol [...] Respimat 1.25 MCG/ACT Inhalation Aerosol Solution (Tiotropium [place] Monohydrate) Inhale 2 Puffs by mouth daily. [...] with ambulation/exertion 1 Each 0 12/24/2020 Active oxygen IN GASIndications:Inc to 4LPM with ambulation/exertion 2.5 lpm at rest 3 LPM continuous oxygen with exertion Dme: [facility] Indications: Inc to 4LPM with ambulation/exertion 1 Each 0 12/23/2020 Discontinu ed(Refill) documented as of this encounter (statuses as of 12/24/2020) Active Problems Problem Noted Date Fibrosis of [...] as of this encounter (statuses as of 12/24/2020) Resolved Problems Problem Noted Date Resolved Date [...] as of this encounter (statuses as of 12/24/2020) Immunizations Name Administration Dates Next Due PPD [...] encounter Miscellaneous Notes * Telephone Encounter - Jackelyn Charlton LPN - 12/24/2020 5:42 PM EDT Faxed to [facility] as requested * Telephone Encounter - Reno Ramírez DO - 12/24/2020 5:41 PM EDT Prescription rewritten and ready for fax as requested * Telephone Encounter - Marcy De La Rosa LPN - 12/24/2020 4:34 PM EDT Script written yesterday per Kavya Dillard. Can Dr. Ramírez sign script if re-printed under his name. Please fax to [facility] at: [phone] with yesterday's OFV notes and demographic sheet. Pended below. * Telephone Encounter - Adolph Choi OSA - 12/24/2020 4:24 PM EDT Caller states that [facility] did not receive paperwork needed for Pt's oxygen. Asking that Kavya TUCKER contacts [facility] documented in this encounter Plan of Treatment Upcoming Encounters Date Type Specialty Care Team Description 01/20/2021 Cardiac Studies Cardiac Studies Gw, Asphalt Patcher 1 [address] [place] [address] [phone] 03/26/2021 Office Visit Family Medicine Kavya Dillard CRNP [address] [place] [address] [phone] 08/05/2021 Pharmacy Insurance Checker, Pharmacy Reimbursement [address] [place] [address] [phone] 09/08/2021 Pharmacy Insurance Checker, Pharmacy Reimbursement [address] [place] [address] [phone] Health Maintenance Due Date Last Done Comments Zoster Vaccines (1 of 2) 1992 *ADVANCE DIRECTIVE NOT ON FILE 09/25/2020 COVID-19 Vaccine (2 - Moderna 2-dose series) 11/04/2020 10/07/2020 *DEPRESSION SCREENING,ANNUAL FOR PTS 12 AND OVER 11/14/2020 DIABETES SCREEN EVERY 3 YRS-AGE 45 AND ABOVE 12/27/2020 12/27/2017, 06/23/2017, 06/18/2017, Additional history exists Influenza Vaccine (FLU shot) (#1) 2021 04/12/2019, 02/28/2018, 03/12/2017, Additional history exists DTaP,Tdap,and Td Vaccines (2 - Td) 10/21/2027 10/20/2017 Pneumococcal Vaccine: 65+ Years Completed 10/20/2017, 04/27/2017 MENINGOCOCCAL (MENACTRA/MENVEO) Aged Out No longer eligible based on patient's age to complete this topic documented as of this encounter Implants Not on filedocumented as of this encounter Visit Diagnoses Diagnosis Chronic respiratory failure with hypoxia, on home O2 therapy (HCC)- Primary documented in this encounter Advance Directives Documents on File Type Date Recorded 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
--- OUTSIDE RECORDS SUMMARY | 2023-04-08 23:15 | External Medical Summary | Summary of Care ---
Author Name Unknown Organization [place] [address] Care Team Providers Care Dope Pourer Name Role Phone Kavya Jacinto Yoanna TUCKER Primary Care Provider Reason for Visit * Reason Comments eRx-Medication Refill Encounter Details Date Type Department Care Team Description 01/23/2021 Refill Family Practice [facility] 132 [facility] [place] [address] Alan Meyers MD [address] [place], [place] [address] [address] Chronic respiratory failure with hypoxia, on home O2 therapy (HCC) Allergies No Known Active Allergiesdocumented as of this encounter (statuses as of 01/24/2021) Medications Medication Sig Dispensed Refills Start Date [...] or Wheezing. 54 g 3 1 Active Levalbuterol HCl 1.25 MG/3ML Inhalation Nebulization Solution (Xopenex)Indication s:Stage 3 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 ([facility]) Inhale 1 Ampule via nebulizer 3 times a day. Diagnosis code J44.9 Stage 3 Sever COPD by Gold classification [facility]. Diagnosis code J96.11 Chronic Resp Failure with hypoxia on home oxygen therapy. 270 mL 4 1 Active Ipratropium [place] 0.02 % Inhalation Solution (Atrovent)Indicatio ns:Stage 3 [...] Respimat 1.25 MCG/ACT Inhalation Aerosol Solution (Tiotropium [place] Monohydrate) Inhale 2 Puffs by mouth daily. [...] EVERY DAY 90 Tab 1 1 Active Folic Acid 1 MG Oral TabletIndications:C hronic respiratory failure with hypoxia, on home O2 therapy (HCC) TAKE 1 TABLET BY MOUTH EVERY DAY 90 Tab 1 1 01/25/20 21 Discontinued documented as of this encounter (statuses as of 01/24/2021) Active Problems Problem Noted Date Fibrosis of [...] as of this encounter (statuses as of 01/24/2021) Resolved Problems Problem Noted Date Resolved Date [...] as of this encounter (statuses as of 01/24/2021) Immunizations Name Administration Dates Next Due PPD [...] encounter Miscellaneous Notes * Telephone Encounter - Kavya Jacinto CRNP - 01/24/2021 5:11 PM EDT Signed Prescriptions: Disp Refills Folic Acid 1 MG Oral Tablet 90 Tab 1 Sig: TAKE 1 TABLET BY MOUTH EVERY DAY Authorizing Provider: KAVYA JACINTO * Telephone Encounter - Zac Cameron formerly [facility] - 01/24/2021 10:04 AM EDT Pending Prescriptions: Disp Refills Folic Acid 1 MG Oral Tablet [Pharmacy Med*90 Tab 1 Sig: TAKE 1 TABLET BY MOUTH EVERY DAY * Telephone Encounter - Zac Cameron formerly [facility] - 01/24/2021 10:03 AM EDT Prescribed by previous PCP. Please approve if appropriate. Thanks, Zac Cameron, PharmD Clinical Pharmacist Telepharmacy 01/24/2021, 10:03 AM * Telephone Encounter - Zac Cameron formerly [facility] - 01/24/2021 10:03 AM EDT Pending Prescriptions: Disp Refills Folic Acid 1 MG Oral Tablet [Pharmacy Med*90 Tab 1 Sig: TAKE 1 TABLET BY MOUTH EVERY DAY Last Office/Telemedicine Visit: 12/23/2020 Next Office Visit: 03/26/2021 Scheduled Provider(s): GRARETT Root If no future appointments scheduled, and last appointment is greater than a year ago, please schedule patient for a follow-up appointment Last date the medication was ordered: 07/29/20 [facility]: [id number] [address] [facility] Is this request for a controlled substance? No Urine Drug Screen:No results found for this or any previous visit. Patient Phone Numbers Labs: Lab Results Component Value Date/Time CREAT 1.1 12/26/2020 04:03 PM CREAT 0.79 12/27/2017 CREAT 1.1 06/18/2017 09:59 AM POTASSIUM 3.7 12/26/2020 04:03 PM POTASSIUM 3.4 (A) 12/27/2017 POTASSIUM 3.8 06/18/2017 09:59 AM TSH 0.77 12/26/2020 04:03 PM TSH 1.06 08/30/2006 11:56 AM LDLCALC 74 02/17/2008 03:12 PM ALT 12 12/26/2020 04:03 PM ALT 20 05/17/2017 ALT 23 02/17/2008 03:12 PM HGBA1C 5.7 08/30/2006 11:56 AM documented in this encounter Plan of Treatment Upcoming Encounters Date Type Specialty Care Team Description 03/26/2021 Office Visit Family Medicine Kavya Jacinto CRNP 132 [facility] [place] [address] [phone] 08/05/2021 Pharmacy Security Strategist, Pharmacy Reimbursement [address] [place], [place] [id number] 09/08/2021 Pharmacy Security Strategist, Pharmacy Reimbursement [address] [place], [place] [id number] Health Maintenance Due Date Last Done Comments [...] on File Type Date Recorded Patient Director Of Operations Support 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 Advanced Directive Advanced Directive Advanced Directive Advanced Directive Advanced Directive Advanced Directive Advanced Directive Advanced Directive Advanced Directive Advanced Directive Advanced Directive Advanced Directive Advanced Directive Advanced Directive Advanced Directive Advanced Directive Advanced Directive Advanced Directive
--- OUTSIDE RECORDS SUMMARY | 2023-04-08 23:15 | External Medical Summary | Summary of Care ---
Author Name Unknown Organization [place] [address] Care Team Providers Care Can Dryer Name Role Phone Unavailable Primary Care Provider Unavailabl e Reason for Visit * Reason Onset Date Comments Encounter Created in Error 12/24/2020 Encounter Details Date Type Department Care Team Description 12/24/2020 Telephone Family Practice [address] [address] Marcy De La Rosa LPN Encounter Created in Error Allergies No Known Active Allergiesdocumented as of [...] :Stage 3 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 ([facility]) Inhale 1 Ampule via nebulizer 3 times a day. Diagnosis code J44.9 Stage 3 Sever COPD by Gold classification [facility]. Diagnosis code J96.11 Chronic Resp Failure with hypoxia on home oxygen therapy. 270 mL 4 07/25/2020 Active Ipratropium [place] 0.02 % Inhalation Solution (Atrovent)Indication s:Stage 3 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 ([facility]) Inhale 2.5 mL via nebulizer 3 times a day. Diagnosis code J44.9 Stage 3 Sever COPD by Gold classification [facility]. Diagnosis code J96.11 Chronic Resp Failure with hypoxia on home oxygen therapy. 270 mL 4 07/25/2020 Active Folic Acid 1 MG Oral TabletIndications:Ch ronic respiratory failure with hypoxia, on home O2 therapy ([facility]) TAKE 1 TABLET BY MOUTH EVERY DAY 90 Tab 1 07/29/2020 Active Fluticasone-Sal[place] ol 250-50 MCG/DOSE Inhalation Aerosol [...] Respimat 1.25 MCG/ACT Inhalation Aerosol Solution (Tiotropium [place] Monohydrate) Inhale 2 Puffs by mouth daily. [...] 4LPM with ambulation/exertion 1 Each 0 12/23/2020 Active documented as of this encounter (statuses [...] Description 01/20/2021 Cardiac Studies Cardiac Studies Gw, Ophthalmic Asst 1 [address] [place] [address] [phone] 03/26/2021 Office Visit Family Medicine Kavya Dillard CRNP [address] [place] [address] [phone] 08/05/2021 Pharmacy Coater Operator, Pharmacy Reimbursement [address] [facility] [place] [address] [phone] 09/08/2021 Pharmacy Coater Operator, Pharmacy Reimbursement [address] [place] [address] [phone] Health Maintenance Due Date Last Done Comments [...] Documents on File Type Date Recorded Patient Tariff Inspector 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 Advanced Directive Advanced Directive Advanced Directive Advanced Directive Advanced Directive Advanced Directive Advanced Directive Advanced Directive Advanced Directive Advanced Directive Advanced Directive Advanced Directive Advanced Directive Advanced Directive Advanced Directive Advanced Directive
--- OUTSIDE RECORDS SUMMARY | 2023-04-08 23:15 | External Medical Summary | Summary of Care ---
Author Name Unknown Organization [place] [address] Care Team Providers Care Stock Supervisor Name Role Phone Kavya Dillard Primary Care Provider Reason for Visit * Reason Onset Date Comments Health Maintenance 01/31/2021 Encounter Details Date Type Department Care Team Description 01/31/2021 Telephone Family Practice [facility] [address] [facility] [place] [address] Kavya Dillard CRNP 132 [facility] [place] [address] [phone] Health Maintenance Allergies No Known Active Allergiesdocumented as of this encounter (statuses as of 01/31/2021) Medications Medication Sig Dispensed Refills Start Date [...] :Stage 3 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 ([facility]) Inhale 1 Ampule via nebulizer 3 times a day. Diagnosis code J44.9 Stage 3 Sever COPD by Gold classification [facility]. Diagnosis code J96.11 Chronic Resp Failure with hypoxia on home oxygen therapy. 270 mL 4 07/25/2020 Active Ipratropium [place] 0.02 % Inhalation Solution (Atrovent)Indication s:Stage 3 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 ([facility]) Inhale 2.5 mL via nebulizer [...] Respimat 1.25 MCG/ACT Inhalation Aerosol Solution (Tiotropium [place] Monohydrate) Inhale 2 Puffs by mouth daily. [...] with ambulation/exertion 1 Each 0 12/24/2020 Active Folic Acid 1 MG Oral TabletIndications:Ch ronic respiratory failure with hypoxia, on home O2 therapy ([facility]) TAKE 1 TABLET BY MOUTH EVERY DAY 90 Tab 1 01/24/2021 Active documented as of this encounter (statuses as of 01/31/2021) Active Problems Problem Noted Date Fibrosis of [...] as of this encounter (statuses as of 01/31/2021) Resolved Problems Problem Noted Date Resolved Date [...] as of this encounter (statuses as of 01/31/2021) Immunizations Name Administration Dates Next Due PPD [...] Telephone Encounter - Danielle Rodriguez LPN - 01/31/2021 11:10 AM EDT Care Gaps Comprehensive Care Outreach Last Office/Telemedicine Visit: Last Office/Telemedicine Visit: 12/23/2020 Last Office/Telemedine Visit Annual Wellness: due Next Office Visit:Next Office Visit: 03/26/2021 Scheduled Provider(s): GARRETT Root Reviewed Health Maintenance below Health Maintenance Topic Date Due Zoster Vaccines (1 of 2) Never done Care Gap Outreach Action Taken: Left message and Myportal message sent documented in this encounter Plan of Treatment Upcoming Encounters Date Type Specialty Care Team Description 03/26/2021 Office Visit Family Medicine Kavya Dillard CRNP [address] [place] [address] [place] [address] [phone] 08/05/2021 Pharmacy Icer Machine Operator, Pharmacy Reimbursement [address] [place] [address] [phone] 09/08/2021 Pharmacy Icer Machine Operator, Pharmacy Reimbursement [address] [place] [facility] [place] [address] [phone] Health Maintenance Due Date Last Done Comments [...] Documents on File Type Date Recorded Patient Global Head Advertiser Solutions 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 Advanced Directive Advanced Directive Advanced Directive Advanced Directive Advanced Directive Advanced Directive Advanced Directive Advanced Directive Advanced Directive Advanced Directive Advanced Directive Advanced Directive Advanced Directive Advanced Directive Advanced Directive Advanced Directive Advanced Directive Advanced Directive
--- OUTSIDE RECORDS SUMMARY | 2023-04-08 23:15 | External Medical Summary | Summary of Care ---
Author Name Unknown Organization [place] [address] Care Team Providers Care Adult Health Clinical Nurse Specialist Name Role Phone Alan Meyers MD Primary Care Provide r Reason for Visit * Reason Comments Follow Up Is here for his josé miguel thing has bettie SOB and is worse using O2 coughing just enough to get greenish color mucous up no fvers Encounter Details Date Type Department Care Team Description 09/23/2020 Office Visit Family Practice [facility] [address] [facility] [place] [address] Kavya Dillard CRNP [address] [facility] [address] [phone] Chronic respiratory failure with hypoxia, on home O2 therapy (HCC)*; Fibrosis of lung (HCC); COPD, group D, by GOLD 2017 classification ([facility]); History of Pseudomonas pneumonia; Gastroesophageal reflux disease with esophagitis without hemorrhage Allergies No Known Active Allergiesdocumented as of this encounter (statuses as of 09/23/2020) Medications Medication Sig Dispensed Refills Start Date End Date Status THIAMINE (VITAMIN B-1) 100 MG Tablet Take 100 mg by mouth daily. 0 04/29/2017 Active oxygen GASIndications:Inc to 4LPM with ambulation/exertion Use 2 L/min(Oxygen) as directed continuous. Indications: Inc to 4LPM with ambulation/exertion 0 04/28/2017 Active acetaminophen (TYLENOL) 500 MG Tablet Take 500 [...] 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 ([facility]) Inhale 1 Ampule via nebulizer 3 times a day. Diagnosis code J44.9 Stage 3 Sever COPD by Gold classification [facility]. Diagnosis code J96.11 Chronic Resp Failure with hypoxia on home oxygen therapy. 270 mL 4 07/25/2020 Active Ipratropium [place] 0.02 % Inhalation Solution (Atrovent)Indication s:Stage 3 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 ([facility]) Inhale 2.5 mL via nebulizer 3 times a day. Diagnosis code J44.9 Stage 3 Sever COPD by Gold classification [facility]. Diagnosis code J96.11 Chronic Resp Failure with hypoxia on home oxygen therapy. 270 mL 4 07/25/2020 Active Folic Acid 1 MG Oral TabletIndications:Ch ronic respiratory failure with hypoxia, on home O2 therapy ([facility]) TAKE 1 TABLET BY MOUTH [...] (Advair Diskus) 1 Puff. 0 11/16/2017 Active predniSONE 10 MG (21) Oral Tablet Therapy Pack 30 mg = 3 tab, Tab, Oral, QBREAKFAST, 30 tab, 0 Refill(s), Route to Pharmacy Electronically, [facility] - Sn 0 11/16/2017 Active Spiriva Respimat 1.25 MCG/ACT Inhalation Aerosol Solution (Tiotropium [place] Monohydrate) Inhale 2 Puffs by mouth daily. 12 g 1 09/23/2020 Active documented as of this encounter (statuses as of 09/23/2020) Active Problems Problem Noted Date Fibrosis of [...] as of this encounter (statuses as of 09/23/2020) Resolved Problems Problem Noted Date Resolved Date [...] as of this encounter (statuses as of 09/23/2020) Immunizations Name Administration Dates Next Due PPD 04/22/2005 Pneumococcal Conjugate Vacc, 13 Valent (Prevnar) 10/20/2017 Pneumococcal Polysaccharide PPV23 (Pneumovax) 04/27/2017 Seasonal Influenza, Quadriva lent, No Preserve, 6 Mons & Above, IM 02/28/2018,03/12/2017 Seasonal Influenza, Trivalen t, Adjuvanted, 65+ yrs 04/12/2019 Seasonal Influenza, Trivalen t, with Preserve, 3yr & Above, Split 03/12/2009,04/24/2006,04/18/2005 TDAP (age 10 and older)(Boostrix) 10/20/2017 documented [...] Sign Reading Time Taken Comments Blood Pressure 154/66 09/23/2020 4:50 PM EDT Pulse 92 09/23/2020 4:50 PM EDT Temperature 37.1 C (98.7 F) 09/23/2020 4:50 PM ED T Respiratory Rate 18 09/23/2020 4:50 PM EDT Oxygen Saturation 94% 09/23/2020 4:50 PM EDT Inhaled Oxygen Concentration - - Weight 59.4 kg (131 lb) 09/23/2020 4:50 PM EDT Height 170.2 cm (5' 7") 09/23/2020 4:50 PM EDT Body Mass Index 20.52 09/23/2020 4:50 PM EDT documented in this encounter Patient Instructions * Patient Instructions* Kavya Dillard CRNP - 09/23/2020 5:24 PM EDT Please start using flutter device 10-20 times after each nebulizer. Increase nebulizer to 3 times daily and use flutter after each nebulizer Continue advair daily Start spiriva- 2 puffs daily in addition to advair Continue daliresp documented in this encounter Progress Notes * Kavya Dillard CRNP - 09/23/2020 5:02 PM EDT FOLLOW UP FM NOTE History of Present Illness: Jer Abreu Jr. is a 79 year old male presenting with his daughter in law(caregiver) today for follow up of COPD, Respiratory failure, Hx of pseudomonas pneumonia, asthma gerd and history of Tobacco use. Interim History: Last exacerbation was 07/11/2020- Doxycycline and prednisone Last exacerbation was 08/22/2020- treated with 40 mg x 5 days prednisone Managed by Юлия Dodson at [facility]- On Wednesday he was given taper dose from юлия dodson in additionto his daily 10 mg prednisone Taking daily advair BID Taking daily daliresp Using levaalbuterol and ipratropium bid Respiratory Symptoms: Cough: every day and all day long. Worse In the am Sputum: green, yellow, foamy Dyspnea:10 % worse in the last 3 months Hemoptysis: denies Wheeze: every day and worse with exertion Triggers: exertion Orthopnea: denies Oxygen: 2.5LPM 28/12 CPAP/BIPAP use:denies GERD symptoms:controlled on omprazole Sinus Symptoms: PND Last CT scan 2014. No screening ct Tobacco use: Social History Tobacco Use Smoking Status Former Smoker Packs/day: 2.00 Years: 59.00 Pack years: 118.00 Types: Cigarettes Start date: 1954 Quit date: 04/07/2016 Years since quittin.4 Smokeless Tobacco Never Used Tobacco Comment started age 16 PMH: Patient Active Problem List Diagnosis Code ADVANCE DIRECTIVE INFORMATION History of tobacco use Z87.891 Edentulous K08.109 Stage 3 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 ([facility]) J44.9 Oxygen dependent Z99.81 Chronic respiratory failure with hypoxia, on home O2 therapy ([facility]) J96.11, Z99.81 Gastroesophageal reflux disease with esophagitis K21.00 Current Outpatient Medications Medication Sig Dispense Refill Fluticasone-Salmeterol 250-50 MCG/DOSE Inhalation Aerosol Powder Breath Activated (Advair Diskus) 1 Puff. predniSONE 10 MG (21) Oral Tablet Therapy Pack 30 mg = 3 tab, Tab, Oral, QBREAKFAST, 30 tab, 0 Refill(s), Route to Pharmacy Electronically, [facility] - Sn Fluticasone-Salmeterol 250-50 MCG/DOSE Inhalation Aerosol Powder Breath Activated (Advair Diskus) Inhale 1 Puff by mouth 2 times a day. Brand necessary 3 Each 3 Ventolin HFA 108 (90 Base) MCG/ACT Inhalation Aerosol Solution Inhale 2 Puffs by mouth every 4 hours as needed for Wheezing. Brand necessary 54 g 3 Folic Acid 1 MG Oral Tablet TAKE 1 TABLET BY MOUTH EVERY DAY 90 Tab 1 Ipratropium [place] 0.02 % Inhalation Solution (Atrovent) Inhale 2.5 mL via nebulizer 3 times aday. Diagnosis code J44.9 Stage 3 Sever COPD by Gold classification [facility]. Diagnosis code J96.11 Chronic Resp Failure with hypoxia on home oxygen therapy. 270 mL 4 Levalbuterol HCl 1.25 MG/3ML Inhalation Nebulization Solution (Xopenex) Inhale 1 Ampule via nebulizer 3 times a day. Diagnosis code J44.9 Stage 3 Sever COPD by Gold classification [facility]. Diagnosis code J96.11 Chronic Resp Failure with hypoxia on home oxygen therapy. 270 mL 4 Albuterol Sulfate HFA 108 (90 Base) MCG/ACT Inhalation Aerosol Solution Inhale 2 Puffs by mouthevery 4 hours as needed for Shortness of Breath or Wheezing. 54 g 3 famotidine (PEPCID AC) 10 MG Tablet Take 1 Tab by mouth 2 times a day. For heartburn 60 Tab 5 roflumilast (DALIRESP) 500 MCG Tablet Take 500 mcg by mouth daily. acetaminophen (TYLENOL) 500 MG Tablet Take 500 mg by mouth every 4 hours as needed for Pain. oxygen GAS Use 2 L/min(Oxygen) as directed continuous. Indications: Inc to 4LPM with ambulation/exertion THIAMINE (VITAMIN B-1) 100 MG Tablet Take 100 mg by mouth daily. hydrocortisone acetate (ANUSOL-HC) 25 MG suppository Administer [...] REMOVE CATARACT, INSERT LENS PROSTH Right 06/12/2019 [facility] REMOVE CATARACT, INSERT LENS PROSTH Left 06/26/2019 [facility] Review of Systems: Review of Systems Constitutional: Positive for fatigue. HENT: Positive for postnasal drip. Respiratory: Positive for cough, chest tightness, shortness of breath and wheezing. Cardiovascular: Negative for chest pain, palpitations and leg swelling. Gastrointestinal: GERD stable Neurological: Negative for dizziness. Psychiatric/Behavioral: Negative for sleep disturbance. The patient is nervous/anxious. Physical Exam: BP 154/66 | Pulse 92 | Temp 37.1 C (98.7 F) (Tympanic) | Resp 18 | Ht 1.702 m (5' 7") | Wt 59.4kg (131 lb) | SpO2 94% | BMI 20.52 kg/m | BSA 1.68 m Physical Exam Neurological: Mental Status: He is alert. DATA: All data is obtained from chart. Interpreting physician attached to each report. 1PFTs: "Spirometry revealed severe obstruction by ATS criteria. There was a significant bronchodilator response based on both FVC and FEV1. Flow volume loops were obstructive. No prior PFT's available for comparison.This interpretation has been electronically signed: DHRUV BARNHART 10/28/2016 05:31:17 PM" Pulmonary Stress Test: Not on file Chest Imaging: Obtain images from [facility] Cardiac Imaging: Not on file Pertinent Labs: Serum bicarb in 2018 was 26 Assessment and Plan: 1. Chronic respiratory failure with hypoxia, on home O2 therapy (HCC) On 2.5 lpm 28/12 Last serum bicarb at 26 in 2018 Consider blood gas Recommend check of NPO - NOCTURNAL HOME OXIMETRY (OP) 2. Fibrosis of lung (HCC) Noted on previous imaging- likely related to Tobacco use 3. COPD, group D, by GOLD 2017 classification (HCC) On chronic daily prednisone SOB 10% worse over the last 3 months Add spiriva 2 sprays per nostril daily Continue advair Continue levalbuterol every 8 hours Continue atrovent every 8 hours Managed by [facility] Recommend pulmonary toilet- add flutter(given to patient today with instructions on how to use) 10-20 puffs after each neb daily Consider pneumovest 4. History of Pseudomonas pneumonia Colonized and likely the cause of his persistent green mucous No daily antibiotics at this time 5. Gastroesophageal reflux disease with esophagitis without hemorrhage sTABLE I have advised the patient to call our office incase of any worsening or new symptoms. A total of 40 minutes were spent with the patient, more than half in [id number] explanation and discussion of the condition and treatment and answering questions. Randy, MSN, GARRETT [facility] Pulmonary and Sleep Medicine documented in this encounter Nursing Notes * Ligia Dewitt LPN - 09/23/2020 4:57 PM EDT The patient has been properly identified by confirmation of name and date of . Chief Complaint Patient presents with Follow Up Is here for his breathing has bettie SOB and is worse using O2 coughing just enough to get greenish color mucous up no fvers documented in this encounter Plan of Treatment Upcoming Encounters Date Type Specialty Care Team Description 09/24/2020 Pharmacy [employer] Operator, Pharmacy Reimbursement [address] [facility] [place] [address] [phone] 12/23/2020 Office Visit Family Medicine Kavya Dillard CRNP [address] [facility] [place] [address] [phone] 08/05/2021 Pharmacy [employer] Operator, Pharmacy Reimbursement [address] [place] [address] [phone] Scheduled Orders Name Type Priority Associated Diagnoses Orde r Schedule NOCTURNAL HOME OXIMETRY (OP) Procedures Routine Chronic respiratory failure with hypoxia, on home O2 therapy (HCC) Ordered: 09/23/2020 Health Maintenance Due Date Last Done Comments Zoster Vaccines (1 of 2) 1992 LUNG CANCER SCREENING YEARLY-USE SMARTSET 68209 06/23/2018 06/23/2017 Influenza Vaccine (FLU shot) (#1) 2020 04/12/2019, 02/28/2018, 03/12/2017, Additional history exists DIABETES SCREEN EVERY 3 YRS-AGE 45 AND ABOVE 12/27/2020 12/27/2017, 06/23/2017, 06/18/2017, Additional history exists DTaP,Tdap,and Td Vaccines (2 - Td) 10/21/2027 10/20/2017 Pneumococcal Vaccine: 65+ Years Completed 10/20/2017, 04/27/2017 MENINGOCOCCAL (MENACTRA/MENVEO) Aged Out No longer eligible based on patient's age to complete this topic documented as of this encounter Implants Not on filedocumented as of this encounter Visit Diagnoses Diagnosis Chronic respiratory failure with hypoxia, on home O2 therapy (HCC)- Primary 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 COPD, group D, by GOLD 2017 classification ([facility]) History of Pseudomonas pneumonia Personal history of pneumonia (recurrent) Gastroesophageal reflux disease with esophagitis without hemorrhage documented in this encounter Advance Directives Documents on File Type Date Recorded Patient Window Clerk 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 Advanced Directive Advanced Directive Advanced Directive Advanced Directive Advanced Directive Advanced Directive Advanced Directive Advanced Directive Advanced Directive Advanced Directive Advanced Directive Advanced Directive
--- OUTSIDE RECORDS SUMMARY | 2023-04-08 23:15 | External Medical Summary | Summary of Care ---
Author Name Unknown Organization [place] [address] Care Team Providers Care Occupational Therapy Teacher Name Role Phone Alan Meyers MD Primary Care Provide r Reason for Visit * Reason Onset Date Comments Medication Refill 09/16/2020 FYI 09/19/2020 Encounter Details Date Type Department Care Team Description 09/16/2020 Telephone Family Practice [facility] [address] [place] [address] Alan Meyers MD [address] [place] [id number] Medication Refill; FYI Allergies No Known Active Allergiesdocumented as of this encounter (statuses as of 09/19/2020) Medications Medication Sig Dispensed Refills Start Date [...] :Stage 3 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 ([facility]) Inhale 1 Ampule via nebulizer 3 times a day. Diagnosis code J44.9 Stage 3 Sever COPD by Gold classification [facility]. Diagnosis code J96.11 Chronic Resp Failure with hypoxia on home oxygen therapy. 270 mL 4 07/25/2020 Active Ipratropium [place] 0.02 % Inhalation Solution (Atrovent)Indication s:Stage 3 [...] as of this encounter (statuses as of 09/19/2020) Active Problems Problem Noted Date Chronic respiratory failure with hypoxia , on home O2 therapy 12/03/2017 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 documented as of this encounter (statuses as of 09/19/2020) Resolved Problems Problem Noted Date Resolved Date [...] as of this encounter (statuses as of 09/19/2020) Immunizations Name Administration Dates Next Due PPD [...] d ay. Was drinking 8 per day. Sex Assigned at Date Recorded Not on file Job Start Date Occupation Industry Not on file Not on file Not on file documented as of this encounter Miscellaneous Notes * Telephone Encounter - Aidee Howe OSA - 09/19/2020 10:40 AM EDT Patient has been notified of the message. Maria Isabel states that she just received the script for Prednisone 10MG from Remington Dodson. * Telephone Encounter - Ligia Dewitt LPN - 09/19/2020 10:12 AM EDT Called patient received voiced mail. Left message to return call * Telephone Encounter - Kavya Dillard CRNP - 09/18/2020 3:44 PM EDT Per the pulmonary notes from Remington Dodson at [facility] he was only supposed to take the prednisone for aflare up of COPD which is why I recommended he discontinue the prednisone. He does not have to taper off of 10 mg ... can just stop. Randy, AMBER, GARRETT [facility] * Telephone Encounter - Sayra Carvalho LPN - 09/18/2020 1:23 PM EDT Pt wanted to know who Victor ManuelJosé Miguel Gilma works for, which office Advised that she is in the office, Family Practice He states that he will follow up with his Ict Help Desk Technician then * Telephone Encounter - Mayra Tran LPN - 09/18/2020 1:21 PM EDT Pt returning call, advised of message below. Voiced understanding. No further questions at this time. * Telephone Encounter - Ligia Dewitt LPN - 09/18/2020 8:40 AM EDT Called patient received voiced mail. Left message to return call To [phone] * Telephone Encounter - Kavya Dillard CRNP - 09/18/2020 7:18 AM EDT Noted. Recommend discontinue prednisone. Randy, AMBER, GARRETT [facility] * Telephone Encounter - Jamila Drummond OSA - 09/17/2020 1:39 PM EDT Patient calling back, states he was taking the prednisone on a daily bases for COPD and was not aware anyone had discontinued it. * Telephone Encounter - Lyssa Long MED ASSIST - 09/17/2020 11:23 AM EDT message left for patient to call back on his mobile number. * Telephone Encounter - Shannan Posey LPN - 09/16/2020 3:48 PM EDT Tried to call daughter back, no ringtone, no answer. Please try call later * Telephone Encounter - Kip Dodson DO - 09/16/2020 3:35 PM EDT No PCP yet - Kavya Dillard will be seeing Would need more info before refill * Telephone Encounter - Elvi Ortez PHARM Tech - 09/16/2020 9:08 AM EDT Clearing after hours voice mail. Request pending Thank You, Elvi Ortez [facility] Mis Specialist [facility] 09/16/2020, 9:08 AM * Telephone Encounter - Ragini Chao CPhT - 09/16/2020 7:55 AM EDT Patients daughter requesting refills for prednisone 10mg. Upon chart review, medication is listed as discontinued, with discontinuation reason as "refill". Please advise if you wish to continue this therapy for the patient. Pt needs refill ordered today he is out of medication Thanks, Ragini Chao Mis Specialist II Pharmacy Refill Call Center 17:56 AM documented in this encounter Plan of Treatment Upcoming Encounters Date Type Specialty Care Team Description 09/23/2020 [facility] Visit [facility] [address] [phone] 09/24/2020 Pharmacy Digital Production Artist, Pharmacy Reimbursement [address] [facility] [place] [id number] 08/05/2021 Pharmacy Digital Production Artist, Pharmacy Reimbursement [address] [place] [facility] [place] [address] [phone] Health Maintenance Due Date Last Done Comments Zoster Vaccines (1 of 2) 1992 LUNG CANCER SCREENING YEARLY-USE SMARTSET 43715 06/23/2018 06/23/2017 Influenza Vaccine (FLU shot) (#1) [...] Documents on File Type Date Recorded Patient Safety And Health Manager 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 Advanced Directive Advanced Directive Advanced Directive Advanced Directive Advanced Directive Advanced Directive Advanced Directive Advanced Directive Advanced Directive Advanced Directive Advanced Directive
--- OUTSIDE RECORDS SUMMARY | 2023-04-08 23:15 | External Medical Summary | Summary of Care ---
Author Name Unknown Organization [place] [address] Care Team Providers Care Import And Export Clerk Name Role Phone Alan Meyers MD Primary Care Provide r Encounter Details Date Type Department Care Team Description 10/09/2020 Scan Encounter Unspecified Department <No scans attached> Allergies No Known Active Allergiesdocumented as of this encounter (statuses as of 10/14/2020) Medications Medication Sig Dispensed Refills Start Date [...] :Stage 3 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 ([facility]) Inhale 1 Ampule via nebulizer 3 times a day. Diagnosis code J44.9 Stage 3 Sever COPD by Gold classification [facility]. Diagnosis code J96.11 Chronic Resp Failure with hypoxia on home oxygen therapy. 270 mL 4 07/25/2020 Active Ipratropium [place] 0.02 % Inhalation Solution (Atrovent)Indication s:Stage 3 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 ([facility]) Inhale 2.5 mL via nebulizer 3 [...] tab, 0 Refill(s), Route to Pharmacy Electronically, [facility] - 0 11/16/2017 Active Spiriva Respimat 1.25 MCG/ACT Inhalation Aerosol Solution (Tiotropium [place] Monohydrate) Inhale 2 Puffs by mouth daily. 12 g 1 09/23/2020 Active documented as of this encounter (statuses as of 10/14/2020) Active Problems Problem Noted Date Fibrosis of [...] as of this encounter (statuses as of 10/14/2020) Resolved Problems Problem Noted Date Resolved Date [...] as of this encounter (statuses as of 10/14/2020) Immunizations Name Administration Dates Next Due PPD [...] Encounters Date Type Specialty Care Team Description 12/23/2020 Office Visit Family Medicine [facility]illard CRNP [address] [facility] [place] [address] [phone] 08/05/2021 Pharmacy [employer] F[employer] Developer, Pharmacy Reimbursement [address] [place] [address] [phone] 09/08/2021 Pharmacy [employer] Developer, Pharmacy Reimbursement [address] [place] [address] [phone] Health Maintenance Due Date Last Done Comments Zoster Vaccines (1 of 2) 1992 LUNG CANCER SCREENING YEARLY-USE SMARTSET 10765 06/23/2018 06/23/2017 *ADVANCE DIRECTIVE NOT ON FILE 09/25/2020 DIABETES SCREEN EVERY 3 YRS-AGE 45 AND ABOVE 12/27/2020 12/27/2017, 06/23/2017, 06/18/2017, Additional history exists Influenza Vaccine (FLU shot) (Season Ended) 2021 04/12/2019, 02/28/2018, 03/12/2017, Additional history exists DTaP,Tdap,and Td Vaccines (2 - Td) 10/21/2027 10/20/2017 Pneumococcal Vaccine: 65+ Years Completed 10/20/2017, 04/27/2017 MENINGOCOCCAL (MENACTRA/MENVEO) Aged Out No longer eligible based on patient's age to complete this topic documented as of this encounter Implants Not on filedocumented as of this encounter Advance Directives Documents on File Type Date Recorded Patient Production Support Supervisor 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 Advanced Directive Advanced Directive Advanced Directive Advanced Directive Advanced Directive Advanced Directive Advanced Directive Advanced Directive Advanced Directive Advanced Directive Advanced Directive Advanced Directive Advanced Directive Advanced Directive
--- OUTSIDE RECORDS SUMMARY | 2023-04-08 23:15 | External Medical Summary | Summary of Care ---
Author Name Unknown Organization [place] [address] Care Team Providers Care General Inspector Name Role Phone Unavailable Primary Care Provider Unavailabl e Reason for Visit * Reason Onset Date Comments Advice 12/24/2020 Encounter Details Date Type Department Care Team Description 12/24/2020 Telephone Family Practice [facility] [address] [place] [address] Kavya Dillard CRNP [address] [place] [address] [phone] Advice Allergies No Known Active Allergiesdocumented as [...] classification ([facility]) Inhale 1 Ampule via nebulizer 3 times a day. Diagnosis code J44.9 Stage 3 Sever COPD by Gold classification [facility]. Diagnosis code J96.11 Chronic Resp Failure with hypoxia on home oxygen therapy. 270 mL 4 07/25/2020 Active Ipratropium [place] 0.02 % Inhalation Solution (Atrovent)Indicatio ns:Stage 3 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 ([facility]) Inhale 2.5 mL via nebulizer 3 times a day. Diagnosis code J44.9 Stage 3 Sever COPD by Gold classification [facility]. Diagnosis code J96.11 Chronic Resp Failure with hypoxia on home oxygen therapy. 270 mL 4 07/25/2020 Active Folic Acid 1 MG Oral TabletIndications:C hronic respiratory failure with hypoxia, on home O2 therapy ([facility]) TAKE 1 TABLET BY MOUTH EVERY [...] Respimat 1.25 MCG/ACT Inhalation Aerosol Solution (Tiotropium [place] Monohydrate) Inhale 2 Puffs by mouth daily. [...] his name. Please fax to [facility] at: [phone] with yesterday's OFV notes and demographic sheet. Pended below. * Telephone Encounter - Adolph Choi OSA - 12/24/2020 4:24 PM EDT Caller states that [facility] did not receive paperwork needed for Pt's oxygen. Asking that Kavya TUCKER contacts [facility] documented in this encounter Plan of Treatment Upcoming Encounters Date Type Specialty Care Team Description 01/20/2021 Cardiac Studies Cardiac Studies Gw, Precision Thread Grinder Operator 1 [address] [place] [address] [phone] 03/26/2021 Office Visit Family Medicine Kavya Dillard CRNP [address] [place] [address] [phone] 08/05/2021 Pharmacy Fuselage Framer, Pharmacy Reimbursement [address] [place] [address] [phone] 09/08/2021 Pharmacy Fuselage Framer, Pharmacy Reimbursement [address] [place] [address] [phone] Health Maintenance Due Date Last Done Comments [...] Documents on File Type Date Recorded Patient Traffic Routing Engineer 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 Advanced Directive Advanced Directive Advanced Directive Advanced Directive Advanced Directive Advanced Directive Advanced Directive Advanced Directive Advanced Directive Advanced Directive Advanced Directive Advanced Directive Advanced Directive Advanced Directive Advanced Directive Advanced Directive
--- OUTSIDE RECORDS SUMMARY | 2023-04-08 23:15 | External Medical Summary | Summary of Care ---
Author Name Unknown Organization [place] [address] Care Team Providers Care Manager Lab Name Role Phone Alan Meyers MD Primary Care Provide r Reason for Visit * Reason Onset Date Comments Advice 11/11/2020 Encounter Details Date Type Department Care Team Description 11/11/2020 Telephone [address] [address] Alan Meyers MD [address] [place] [address] [place] [address] Advice Allergies No Known Active Allergiesdocumented as of this encounter (statuses as of 11/11/2020) Medications Medication Sig Dispensed Refills Start Date End Date Status oxygen GASIndications:Inc to 4LPM with ambulation/exertion Use [...] classification ([facility]) Inhale 1 Ampule via nebulizer 3 times a day. Diagnosis code J44.9 Stage 3 Sever COPD by Gold classification [facility]. Diagnosis code J96.11 Chronic Resp Failure with hypoxia on home oxygen therapy. 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 12 g 1 09/23/2020 Active B-12 100 MCG Oral Tablet Take 100 mcg by mouth daily. 30 Tab 11 11/11/2020 Active Thiamine HCl 100 MG Oral Tablet (vitamin B-1) Take 1 Tab by mouth daily. 90 Tab 1 11/11/2020 Active THIAMINE (VITAMIN B-1) 100 MG Tablet Take 100 mg by mouth daily. 0 04/29/2017 Discontinu ed(Refill) documented as of this encounter (statuses as of 11/11/2020) Active Problems Problem Noted Date Fibrosis of [...] as of this encounter (statuses as of 11/11/2020) Resolved Problems Problem Noted Date Resolved Date [...] as of this encounter (statuses as of 11/11/2020) Immunizations Name Administration Dates Next Due PPD [...] encounter Miscellaneous Notes * Telephone Encounter - Marcy De La Rosa LPN - 11/11/2020 7:02 PM EDT Pt notified of information. * Telephone Encounter - Kavya Dillard CRNP - 11/11/2020 1:35 PM EDT It looks like he should be on b12 and b1. He has had B12 level checked which was low end of normal in 2006. Recommend b 12 tablet daily. And B1 which I sent to pharmacy for him. Randy, MSN, GARRETT [facility] * Telephone Encounter - Justa Ya LPN - 11/11/2020 9:27 AM EDT Patients daughter Maria Isabel calling. Patient takes 100mg of B1 daily, but she can not find it currently in any dose but 250mg. Would it be okay for him to take 250mg B1 daily? Call Maria Isabel at [phone] * Telephone Encounter - Mitzi Real OSA - 11/11/2020 9:24 AM EDT Reason for patient's call: medication question Caller was transferred to Justa at the nurse line. documented in this encounter Plan of Treatment Upcoming Encounters Date Type Specialty Care Team Description 12/23/2020 Office Visit Family Medicine Kavya Dillard CRNP [address] [facility] [place] [address] [phone] 08/05/2021 Pharmacy Respiratory Scientist, Pharmacy Reimbursement [address] [place] [address] [phone] 09/08/2021 Pharmacy Respiratory Scientist, Pharmacy Reimbursement [address] [place] [address] [phone] Health Maintenance Due Date Last Done Comments Zoster Vaccines (1 of 2) 1992 LUNG CANCER SCREENING YEARLY-USE SMARTSET 24641 06/23/2018 06/23/2017 *ADVANCE DIRECTIVE NOT ON FILE 09/25/2020 COVID-19 Vaccine (2 - Moderna 2-dose series) 11/04/2020 10/07/2020 DIABETES SCREEN EVERY 3 YRS-AGE 45 [...] Documents on File Type Date Recorded Patient Finish Remover 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 Advanced Directive Advanced Directive Advanced Directive Advanced Directive Advanced Directive Advanced Directive Advanced Directive Advanced Directive Advanced Directive Advanced Directive Advanced Directive Advanced Directive Advanced Directive Advanced Directive
--- OUTSIDE RECORDS SUMMARY | 2023-04-08 23:15 | External Medical Summary | Summary of Care ---
Author Name Unknown Organization [place] [address] Care Team Providers Care Case Consultant Name Role Phone Unavailable Primary Care Provider Unavailabl e Reason for Referral * Precert (Within 10 days (routine)) Status Reason Specialty Diagnoses / Procedures Referred By Contact Referred To Contact Authorized Precert Cardiac Studies Diagnoses Edema, unspecified type Procedures ECHO, COMPLETE (2D), TRANS-THORACIC Kavya Dillard CRNP [address] [facility] [place] [address] Electronically signed by Kavya TUCKER at Reason for Visit * Reason Comments Follow Up pt here for a 3 gabriel h follow up. pt c/o pain in bilateral eyes, bilateral foot edema Encounter Details Date Type Department Care Team Description 12/23/2020 Office Visit Family [facility] [address] [place] [address] [facility] CRNP [address] [facility] [place] [address] [phone] Chronic respiratory failure with hypoxia, on home O2 therapy (HCC)*; COPD, group D, by GOLD 2017 classification (HCC); Fibrosis of lung (HCC); History of Pseudomonas pneumonia; Edema, unspecified type Allergies No Known Active Allergiesdocumented as of this encounter (statuses as of 12/23/2020) Medications Medication Sig Dispensed Refills Start Date [...] ns:Stage 3 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 ([facility]) Inhale 1 Ampule via nebulizer 3 times a day. 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 Diagnosis code J96.11 Chronic Resp Failure with hypoxia on home oxygen therapy. 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 Diagnosis code J96.11 Chronic Resp Failure with hypoxia on home oxygen therapy. 270 mL 4 1 Active Folic Acid 1 MG Oral TabletIndications: Chronic respiratory failure with hypoxia, on home O2 therapy ([facility]) TAKE 1 TABLET BY MOUTH EVERY DAY 90 Tab 1 1 Active Fluticasone-Salmet umberto 250-50 MCG/DOSE Inhalation [...] Respimat 1.25 MCG/ACT Inhalation Aerosol Solution (Tiotropium [place] Monohydrate) Inhale 2 Puffs by mouth daily. [...] 3 LPM continuous oxygen [facility] Indications: Inc to 4LPM with ambulation/exertio n 1 Each 0 1 Active oxygen GASIndications:Inc to 4LPM with ambulation/exertio n Use 2 L/min(Oxygen) as directed continuous. Indications: Inc to 4LPM with ambulation/exertio n 0 7 021 Discontinued(Re fill) predniSONE 10 MG (21) Oral Tablet Therapy Pack 30 mg = 3 tab, Tab, Oral, QBREAKFAST, 30 tab, 0 Refill(s), Route to Pharmacy Electronically, [facility] - Sn 0 [phone] Discontinued documented as of this encounter (statuses as of 12/23/2020) Active Problems Problem Noted Date Fibrosis of [...] as of this encounter (statuses as of 12/23/2020) Resolved Problems Problem Noted Date Resolved Date [...] as of this encounter (statuses as of 12/23/2020) Immunizations Name Administration Dates Next Due PPD [...] Sign Reading Time Taken Comments Blood Pressure 124/72 12/23/2020 5:14 PM EDT Pulse 100 12/23/2020 5:14 PM EDT Temperature 36.6 C (97.8 F) 12/23/2020 5:14 PM ED T Respiratory Rate 16 12/23/2020 5:14 PM EDT Oxygen Saturation 95% 12/23/2020 5:14 PM EDT 2 liters Inhaled Oxygen Concentration - - Weight - - Height - - Body Mass Index - - documented in this encounter Progress Notes * Kavya Dillard CRNP - 12/23/2020 5:21 PM EDT FOLLOW UP PULMONARY OUTPATIENT CONSULTATION NOTE History of Present Illness: Jer Abreu Jr. is a 80 year old male presenting for follow up of COPD. He is here with Maria Isabel today for follow up of COPD. He reports feet become more swollen. Interim History: Started spiriva 3 months ago with minimal improvement Still taking prednisone 4 mg daily Using albuterol nebulizer 2 times per day Using flutter device Still using advair [facility] lowered prednisone dose in October Respiratory Symptoms: Cough: random all day, worse in the am Sputum: productive of mucous Dyspnea:feels worse compared to september Hemoptysis: denies Wheeze: all the time Triggers: humidity, exertion Orthopnea: denies Oxygen: 2.5 lpm CPAP/BIPAP use:DENIES GERD symptoms: Occasional and severe Sinus Symptoms: PND Tobacco use: Social History Tobacco Use Smoking Status Former Smoker Packs/day: 2.00 Years: 59.00 Pack years: 118.00 Types: Cigarettes Start date: 1954 Quit date: 04/07/2016 Years since quittin.7 Smokeless Tobacco Never Used Tobacco Comment started age 16 PMH: Patient Active Problem List Diagnosis Code ADVANCE DIRECTIVE INFORMATION History of tobacco use Z87.891 Edentulous K08.109 COPD, group D, by GOLD 2017 classification ([facility]) J44.9 Oxygen dependent Z99.81 Chronic respiratory failure with hypoxia, on home O2 therapy ([facility]) J96.11, Z99.81 Gastroesophageal reflux disease with esophagitis K21.00 Fibrosis of lung ([facility]) J84.10 History of Pseudomonas pneumonia Z87.01 Current Outpatient Medications Medication Sig Dispense Refill B-12 100 MCG Oral Tablet Take 100 mcg by mouth daily. 30 Tab 11 Thiamine HCl 100 MG Oral Tablet (vitamin B-1) Take 1 Tab by mouth daily. 90 Tab 1 predniSONE 10 MG (21) Oral Tablet Therapy Pack 30 mg = 3 tab, Tab, Oral, QBREAKFAST, 30 tab, 0 Refill(s), Route to Pharmacy Electronically, [facility] - Spiriva Respimat 1.25 MCG/ACT Inhalation Aerosol Solution (Tiotropium [place] Monohydrate) Inhale 2 Puffs by mouth daily. 12 g 1 Fluticasone-Salmeterol 250-50 MCG/DOSE Inhalation Aerosol Powder Breath [...] MOUTH EVERY DAY 90 Tab 1 Ipratropium [place] 0.02 % Inhalation Solution (Atrovent) Inhale 2.5 mL via nebulizer 3 times aday. 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 Diagnosis code J96.11 Chronic Resp Failure with hypoxia on home oxygen therapy. 270 mL 4 Levalbuterol HCl 1.25 MG/3ML Inhalation Nebulization Solution (Xopenex) Inhale 1 Ampule via nebulizer 3 times a day. 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 Diagnosis code J96.11 Chronic [...] ADULTS) TABS Take by mouth daily. oxygen GAS Use 2 L/min(Oxygen) as directed continuous. Indications: Inc to 4LPM with ambulation/exertion Fluticasone-Salmeterol 250-50 MCG/DOSE Inhalation Aerosol Powder Breath Activated (Advair Diskus) 1Puff. Review of patient's allergies indicates: No Known [...] REMOVE CATARACT, INSERT LENS PROSTH Right 06/12/2019 [facility] REMOVE CATARACT, INSERT LENS PROSTH Left 06/26/2019 [facility] Review of Systems: Review of Systems Constitutional: Positive for fatigue. HENT: Positive for congestion. Eyes: Positive for pain and visual disturbance. Respiratory: Positive for cough, chest tightness, shortness of breath and wheezing. Cardiovascular: Positive for leg swelling. Negative for chest pain and palpitations. Gastrointestinal: Negative for abdominal pain. Neurological: Positive for dizziness. Negative for syncope and headaches. Psychiatric/Behavioral: Negative for sleep disturbance. Physical Exam: BP 124/72 (BP Site: Left Arm, BP Position: Sitting, BP Cuff Size: Regular) | Pulse 100 | Temp 36.6 C (97.8 F) (Tympanic) | Resp 16 | SpO2 95% Comment: 2 liters Physical Exam HENT: Head: Normocephalic. Eyes: Pupils: Pupils are equal, round, and reactive to light. Neck: Musculoskeletal: Normal range of motion. Cardiovascular: Rate and Rhythm: Normal rate and regular rhythm. Pulmonary: Effort: Pulmonary effort is normal. Breath sounds: Normal breath sounds. Musculoskeletal: Normal range of motion. Neurological: General: No focal deficit present. Mental Status: He is alert and oriented to person, place, and time. Psychiatric: Mood and Affect: Mood normal. Behavior: Behavior normal. Thought Content: Thought content normal. Judgment: Judgment normal. DATA: All data is obtained from chart. Interpreting physician attached to each report. Assessment and Plan: 1. Chronic respiratory failure with hypoxia, on home O2 therapy (HCC) On 2.5 lpm 24/[address] for 10 feet on 2.5 lpm breath assist- O2sat at 87%, breathless, tachycardia Changed to 3LPM continuous- O2 sat dropped to 91%, less breathless Consider blood gas Recommend check of NPO - NOCTURNAL HOME OXIMETRY (OP) 2. Fibrosis of lung (HCC) Noted on previous imaging- likely related to Tobacco use 3. COPD, group D, by GOLD 2017 classification (HCC) On chronic daily prednisone- 4 MG PER IVONNE CRABTREE AT [facility] Patient is asking to go back to 10 mg because breathing is progressively worse. Hold on increase given eye discomfort and blurred vision- daughter in law will schedule eye appt. SOB 10% worse over the last 3 months Continue spiriva 2 sprays daily Continue advair Continue levalbuterol every 8 hours Continue atrovent every 8 hours Managed by [facility] Recommend pulmonary toilet- Continue flutter Consider pneumovest 4. History of Pseudomonas pneumonia Colonized and likely the cause of his persistent green mucous No daily antibiotics at this time 5. Edema, unspecified type Ble, weight is stable Give Chronic respiratory failure possible PH R/O CHF - ECHO, COMPLETE (2D), TRANS-THORACIC; Future - COMPREHENSIVE METABOLIC PANEL; Future - BNP (NT-PROBNP); Future - TSH WITH FREE T4 IF INDICATED; Future I have advised the patient to call our office incase of any worsening or new symptoms. A total of 40 minutes were spent with the patient, more than half in [id number] explanation and discussion of the condition and treatment and answering questions. Randy, MSN, GARRETT [facility] documented in this encounter Nursing Notes * Shannan Posey LPN - 12/23/2020 5:14 PM EDT The patient has been properly identified by confirmation of name and date of . Chief Complaint Patient presents with Follow Up pt here for a 3 month follow up. pt c/o pain in bilateral eyes, bilateral foot edema documented in this encounter Plan of Treatment Upcoming Encounters Date Type Specialty Care Team Description 01/20/2021 Cardiac Studies Cardiac Studies Gw, Logging Worker 1 [address] [place] [address] [phone] 03/26/2021 Office Visit Family Medicine Kavya Dillard CRNP [address] [place] [address] [phone] 08/05/2021 Pharmacy Building Inspector, Pharmacy Reimbursement [address] [place] [address] 09/08/2021 Pharmacy Building Inspector, Pharmacy Reimbursement [address] [place], [place] [id number] Scheduled Orders Name Type Priority Associated Diagnoses Orde r Schedule NOCTURNAL HOME OXIMETRY (OP) Procedures Routine Chronic respiratory failure with hypoxia, on home O2 therapy (HCC) COPD, group D, by GOLD 2017 classification (HCC) Ordered: 12/23/2020 ECHO, COMPLETE (2D), TRANS-THORACIC Echocardiology Routine Edema, unspecified type Expected: 12/23/2020, Expires: 01/23/2023 COMPREHENSIVE METABOLIC PANEL Lab Routine Edema, unspecified type Expected: 12/23/2020 (Approximate), Expires: 12/23/2021 BNP (NT-PROBNP) Lab Routine Edema, unspecified type Expected: 12/23/2020 (Approximate), Expires: 12/23/2021 TSH WITH FREE T4 IF INDICATED Lab Routine Edema, unspecified type Expected: 12/23/2020 (Approximate), Expires: 12/23/2021 Health Maintenance Due Date Last Done Comments [...] COPD, group D, by GOLD 2017 classification ([facility]) 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 History of Pseudomonas pneumonia Personal history of pneumonia (recurrent) Edema, unspecified type documented in this encounter Advance Directives Documents on File Type Date Recorded Patient Digital Operations Analyst 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 Advanced Directive Advanced Directive Advanced Directive Advanced Directive Advanced Directive Advanced Directive Advanced Directive Advanced Directive Advanced Directive Advanced Directive Advanced Directive Advanced Directive Advanced Directive Advanced Directive Advanced Directive Advanced Directive"
--- OUTSIDE RECORDS SUMMARY | 2023-04-08 23:15 | External Medical Summary | Summary of Care ---
Author Name Unknown Organization [place] [address] Care Team Providers Care Pound Attendant Name Role Phone Alan Meyers MD Primary Care Provide r Reason for Visit * Reason Comments Patient Assistance Program Encounter Details Date Type Department Care Team Description 09/24/2020 Pharmacy Pharmacy, [place] [address] [place] [address] Coordinator, Pharmacy [facility] [address] [place] [address] [phone] COPD, severe (HCC)* Allergies No Known Active Allergiesdocumented as of this encounter (statuses as of 09/24/2020) Medications Medication Sig Dispensed Refills Start Date [...] :Stage 3 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 Diagnosis code J44.9 Stage 3 Sever COPD by Gold classification [facility]. Diagnosis code J96.11 Chronic Resp Failure with hypoxia on home oxygen therapy. 270 mL 4 07/25/2020 Active Ipratropium [place] 0.02 % Inhalation Solution (Atrovent)Indication s:Stage 3 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 ([facility]) Inhale 2.5 mL via nebulizer 3 times a day. Diagnosis code J44.9 Stage 3 Sever COPD by Gold classification [facility]. Diagnosis code J96.11 Chronic Resp Failure with hypoxia on home oxygen therapy. 270 mL 4 07/25/2020 Active Folic Acid 1 MG Oral TabletIndications:Ch ronic respiratory failure with hypoxia, on home O2 therapy ([facility]) TAKE 1 TABLET BY MOUTH EVERY DAY [...] as of this encounter (statuses as of 09/24/2020) Active Problems Problem Noted Date Fibrosis of [...] as of this encounter (statuses as of 09/24/2020) Resolved Problems Problem Noted Date Resolved Date [...] as of this encounter (statuses as of 09/24/2020) Immunizations Name Administration Dates Next Due PPD [...] as of this encounter Progress Notes * Chele Gallardo OSA - 08/30/2020 11:06 AM EDT Follow up needs to be made to [employer] Coverage:Medicare A and B (No D) [address] [facility] [address] [facility] [address] Patient Phone Numbers RX:Daliresp Dose: 500 MCG Quanity 90 Provider:Alan Meyers MD ID# [id number] Please call [employer] to verify status of application. Phone number: [phone] Forms sent to provider:Faxed documents 08/16/2020, received by [employer] as of 08/30/2020, cannot be processed until at least 09/17/2020. JAH Manriquez Pharmaceutical Supervisor [employer] 08/30/2020, 11:07 AM PRC spoke to [employer] rep, application not processed as of 09/24/2020. Advised PRC to re-send provider section with clarified prescription. PRC faxed prescription section to [employer] at . Follow up [employer] 1 week 10/01/2020. JAH Manriquez Pharmaceutical Supervisor [employer] 09/24/2020, 9:52 AM documented in this encounter Plan of Treatment Upcoming Encounters Date Type Specialty Care Team Description 10/01/2020 Pharmacy Academic Vice President, Pharmacy Reimbursement [address] [place] [address] [phone] 12/23/2020 Office Visit Family Medicine Kavya Dillard CRNP [address] [facility] [place] [address] [phone] 08/05/2021 Pharmacy Academic Vice President, Pharmacy Reimbursement [address] [facility] [place] [address] Health Maintenance Due Date Last Done Comments Zoster Vaccines (1 of 2) 1992 LUNG CANCER SCREENING YEARLY-USE SMARTSET 12306 06/23/2018 06/23/2017 Influenza Vaccine (FLU shot) (#1) [...] Documents on File Type Date Recorded Patient Bill Adjuster 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 Advanced Directive Advanced Directive Advanced Directive Advanced Directive Advanced Directive Advanced Directive Advanced Directive Advanced Directive Advanced Directive Advanced Directive Advanced Directive Advanced Directive Advanced Directive
--- OUTSIDE RECORDS SUMMARY | 2023-04-08 23:15 | External Medical Summary | Summary of Care ---
Author Name Unknown Organization [place] [address] Care Team Providers Care Valve Assembler Name Role Phone Alan Meyers MD Primary Care Provide r Reason for Visit * Reason Comments Patient Assistance Program Encounter Details Date Type Department Care Team Description 10/01/2020 Pharmacy Pharmacy, [place] [address] [place] [address] Coordinator, Pharmacy [facility] [address] [place] [address] [phone] COPD, severe (HCC)* Allergies No Known Active Allergiesdocumented as of this encounter (statuses as of 10/01/2020) Medications Medication Sig Dispensed Refills Start Date [...] classification ([facility]) Inhale 1 Ampule via nebulizer 3 times a day. Diagnosis code J44.9 Stage 3 Sever COPD by Gold classification [facility]. Diagnosis code J96.11 Chronic Resp Failure with hypoxia on home oxygen therapy. 270 mL 4 07/25/2020 Active Ipratropium [place] 0.02 % Inhalation Solution (Atrovent)Indication s:Stage 3 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 ([facility]) Inhale 2.5 mL via nebulizer [...] tab, 0 Refill(s), Route to Pharmacy Electronically, [facility], [facility] - 0 11/16/2017 Active Spiriva Respimat 1.25 MCG/ACT Inhalation Aerosol Solution (Tiotropium [place] Monohydrate) Inhale 2 Puffs by mouth daily. 12 g 1 09/23/2020 Active documented as of this encounter (statuses as of 10/01/2020) Active Problems Problem Noted Date Fibrosis of [...] as of this encounter (statuses as of 10/01/2020) Resolved Problems Problem Noted Date Resolved Date [...] as of this encounter (statuses as of 10/01/2020) Immunizations Name Administration Dates Next Due PPD [...] Progress Notes * Chele Gallardo OSA - 09/24/2020 10:02 AM EDT Follow up needs to be made to [employer] Coverage:Medicare A and B (No D) [address] [facility] [address] [facility] [address] Patient Phone Numbers RX:Daliresp Dose: 500 MCG Quanity 90 Provider:Alan Meyers MD ID# [id number] Please call [employer] to verify status of application. Phone number: [phone] Forms sent to provider:LENI faxed documents 08/16/2020, faxed clarified prescription 09/24/2020. JAH Manriquez Pharmaceutical Site Coordinator 09/24/2020, 10:03 AM LENI spoke to [employer] rep, patient re-enrollment approved. Enrollment expires 10/17/2021. Rep advised next shipment expected to go out to patient 10/24/2020. Patient should be enrolled for automatic refills, [facility] sent refill instructions to patient as well. Scheduled re-enrollment 09/08/2021. JAH Manriquez Pharmaceutical Site Coordinator 10/01/2020, 10:03 AM documented in this encounter Plan of Treatment Upcoming Encounters Date Type Specialty Care Team Description 12/23/2020 Office Visit Family Medicine Gilma Kavyasa Lenz, GARRETT [address] [facility] [place] [address] [phone] 08/05/2021 Pharmacy Silverlight Developer, Pharmacy Reimbursement [address] [place] [address] [phone] 09/08/2021 Pharmacy Silverlight Developer, Pharmacy Reimbursement [address] [place] [address] [phone] Health Maintenance Due Date Last Done Comments Zoster Vaccines (1 of 2) 1992 LUNG CANCER SCREENING YEARLY-USE SMARTSET 33312 06/23/2018 06/23/2017 *ADVANCE DIRECTIVE NOT ON FILE [...] Documents on File Type Date Recorded Patient Casing Man 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 Advanced Directive Advanced Directive Advanced Directive Advanced Directive Advanced Directive Advanced Directive Advanced Directive Advanced Directive Advanced Directive Advanced Directive Advanced Directive Advanced Directive Advanced Directive Advanced Directive
--- OUTSIDE RECORDS SUMMARY | 2023-04-08 23:15 | External Medical Summary | Summary of Care ---
Author Name Unknown Organization [place] [address] Care Team Providers Care Research Biostatistician Name Role Phone Unavailable Primary Care Provider Unavailabl e Reason for Visit * Reason Onset Date Comments Med Request 12/17/2020 Encounter Details Date Type Department Care Team Description 12/17/2020 Telephone Family Medicine [address] [address] Alan Meyers MD [address] [place] [address] [place] [address] Med Request Allergies No Known Active Allergiesdocumented as of this encounter (statuses as of 12/18/2020) Medications Medication Sig Dispensed Refills Start Date [...] by GOLD classification ([facility]) Inhale 1 Ampule via nebulizer 3 times a day. Diagnosis code J44.9 Stage 3 Sever COPD by Gold classification [facility]. Diagnosis code J96.11 Chronic Resp Failure with hypoxia on home oxygen therapy. 270 mL 4 07/25/2020 Active Ipratropium [place] 0.02 % Inhalation Solution (Atrovent)Indication s:Stage 3 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 ([facility]) Inhale 2.5 mL via nebulizer 3 [...] tab, 0 Refill(s), Route to Pharmacy Electronically, [facility], [facility] - 0 11/16/2017 Active Spiriva Respimat 1.25 MCG/ACT Inhalation Aerosol Solution (Tiotropium [place] Monohydrate) Inhale 2 Puffs by mouth daily. 12 g 1 09/23/2020 Active B-12 100 MCG Oral Tablet Take 100 mcg by mouth daily. 30 Tab 11 11/11/2020 Active Thiamine HCl 100 MG Oral Tablet (vitamin B-1) Take 1 Tab by mouth daily. 90 Tab 1 11/11/2020 Active documented as of this encounter (statuses as of 12/18/2020) Active Problems Problem Noted Date Fibrosis of [...] as of this encounter (statuses as of 12/18/2020) Resolved Problems Problem Noted Date Resolved Date [...] as of this encounter (statuses as of 12/18/2020) Immunizations Name Administration Dates Next Due PPD [...] Encounter - Lyssa Long MED ASSIST - 12/18/2020 5:42 PM EDT Patient's son informed. He will call Dr. Romo at [facility] to request med. Thank you for the clarification Arnold * Telephone Encounter - Kavya Dillard CRNP - 12/18/2020 1:09 PM EDT This Rx for daily prednisone is supposed to be coming from his pulm provider- Ranjeet ROMO AT [facility]. He opted to continue to see pulm at last visit per our conversation. Randy, MSN, GARRETT [facility] * Telephone Encounter - Lyssa Long MED ASSIST - 12/18/2020 1:04 PM EDT Last office visit with GARRETT Broderick 09/23/20 History of Present Illness: Jer Abreu Jr. is a 79 year old male presenting with his daughter in law(caregiver) today for follow up of COPD, Respiratory failure, Hx of pseudomonas pneumonia, asthma gerd and history of Tobacco use. Interim History: Last exacerbation was 07/11/2020- Doxycycline and prednisone Last exacerbation was 08/22/2020- treated with 40 mg x 5 days prednisone Managed by Юлия Romo at [facility]- On Wednesday he was given taper dose from юлия romo in additionto his daily 10 mg prednisone Taking daily advair BID Taking daily daliresp Using levaalbuterol and ipratropium bid * Telephone Encounter - Kip Romo DO - 12/18/2020 7:40 AM EDT We need more information than this - I've also never seen this patient so might be best served by the provider who has seen them and who will be seeing them in follow up in 5 days. * Telephone Encounter - Ragini Chao CPhT - 12/17/2020 4:17 PM EDT patient vishal calling requesting the following medication below that is listed as "Historical". The following information was provided: Medication Name: Prednisone 10mg Strength: 10mg Directions: using for COPD Preferred Quantity: Previous Prescriber: Dr Romo Preferred Pharmacy: [facility] Please review and approve if appropriate. Thanks, Ragini Chao Small Equipment Operator II Pharmacy Refill Call Center 14:19 PM documented in this encounter Plan of Treatment Upcoming Encounters Date Type Specialty Care Team Description 12/23/2020 Office Visit Family Medicine Gilma, Kavya Yaneslle, [facility]ARRETT [address] [facility] [address] [phone] 08/05/2021 Pharmacy Target Aircraft Technician, Pharmacy Reimbursement [address] [place] [address] [phone] 09/08/2021 Pharmacy Target Aircraft Technician, Pharmacy Reimbursement [address] [place], [place] [id number] Health Maintenance Due Date Last Done Comments [...] Documents on File Type Date Recorded Patient Nanoscience Technician 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 Advanced Directive Advanced Directive Advanced Directive Advanced Directive Advanced Directive Advanced Directive Advanced Directive Advanced Directive Advanced Directive Advanced Directive Advanced Directive Advanced Directive Advanced Directive Advanced Directive
--- OUTSIDE RECORDS SUMMARY | 2023-04-08 23:15 | External Medical Summary | Summary of Care ---
Author Name Unknown Organization [place] [address] Care Team Providers Care Senior Investment Manager Name Role Phone Gilma Kavya TUCKER Primary Care Provider Reason for Visit * Reason Comments Patient Assistance Program Encounter Details Date Type Department Care Team Description 01/13/2021 Pharmacy Pharmacy, [place] [address] [place] [address] Coordinator, Pharmacy [facility] [address] [place] [address] [phone] COPD, severe (HCC)* Allergies No Known Active Allergiesdocumented as of this encounter (statuses as of 01/13/2021) Medications Medication Sig Dispensed Refills Start Date [...] GOLD classification ([facility]) Inhale 1 Ampule via nebulizer 3 times a day. Diagnosis code J44.9 Stage 3 Sever COPD by Gold classification [facility]. Diagnosis code J96.11 Chronic Resp Failure with hypoxia on home oxygen therapy. 270 mL 4 07/25/2020 Active Ipratropium [place] 0.02 % Inhalation Solution (Atrovent)Indication s:Stage 3 [...] Respimat 1.25 MCG/ACT Inhalation Aerosol Solution (Tiotropium [place] Monohydrate) Inhale 2 Puffs by mouth daily. [...] as of this encounter (statuses as of 01/13/2021) Active Problems Problem Noted Date Fibrosis of [...] as of this encounter (statuses as of 01/13/2021) Resolved Problems Problem Noted Date Resolved Date [...] as of this encounter (statuses as of 01/13/2021) Immunizations Name Administration Dates Next Due PPD [...] Progress Notes * Chele Gallardo OSA - 01/13/2021 11:43 AM EDT Received call from patient There are no phone numbers on file. Patient Phone Numbers Coverage: Medicare A and B Medication:Advair Diskus [facility] received message from MICHAEL Nicolas, tried to place refill but was told needed a new prescription for [employer] PAP. A refill order was placed for Advair Diskus and Ventolin HFA from the [employer] program. [employer] rep provided Prescription numbers for Advair and Ventolin Advair Diskus RX# [id number] Ventolin HFA RX# [id number] Ventolin HFA will no longer be available through the [employer] PAP after 2020. Patient will be unable to re-enroll A 90 day supply will be shipped to [address] [place] [address] [address] [facility] [address] and arrive in 7 to 10business days. Order # [id number] [facility] spoke to son Daniel to make aware refill was placed. JAH Manriquez Pharmaceutical Airways Operations Specialist 01/13/2021, 12:07 PM documented in this encounter Plan of Treatment Upcoming Encounters Date Type Specialty Care Team Description 01/20/2021 Cardiac Studies Cardiac Studies Gw, Service Establishment Attendant [address] [place] [address] [phone] 03/26/2021 Office Visit Family Medicine Gilma, Kavya Lenz, GARRETT [address] [place] [address] [phone] 08/05/2021 Pharmacy Grades 1 Through 6 Teacher, Pharmacy Reimbursement [address] [place], [place] [phone] 09/08/2021 Pharmacy Grades 1 Through 6 Teacher, Pharmacy Reimbursement [address] [place], [place] [phone] Health Maintenance Due Date Last Done Comments [...] Documents on File Type Date Recorded Patient Conditioner Tumbler 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 Advanced Directive Advanced Directive Advanced Directive Advanced Directive Advanced Directive Advanced Directive Advanced Directive Advanced Directive Advanced Directive Advanced Directive Advanced Directive Advanced Directive Advanced Directive Advanced Directive Advanced Directive Advanced Directive Advanced Directive Advanced Directive
--- OUTSIDE RECORDS SUMMARY | 2023-04-08 23:15 | External Medical Summary | Summary of Care ---
Author Name Unknown Organization [place] [address] Care Team Providers Care Data Clerk Name Role Phone Unavailable Primary Care Provider Unavailabl e Reason for Visit * Reason Onset Date Comments Advice 12/24/2020 Encounter Details Date Type Department Care Team Description 12/24/[address] [facility] [address] [place] [address] Kavya Dillard CRNP [address] [place] [address] [phone] Advice Allergies No Known Active Allergiesdocumented as [...] s:Stage 3 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 ([facility]) Inhale 1 Ampule via nebulizer 3 times a day. 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 Diagnosis code J96.11 Chronic Resp Failure with hypoxia on home oxygen therapy. 270 mL 4 07/25/2020 Active Ipratropium [place] 0.02 % Inhalation Solution (Atrovent)Indicatio ns:Stage 3 [...] Respimat 1.25 MCG/ACT Inhalation Aerosol Solution (Tiotropium [place] Monohydrate) Inhale 2 Puffs by mouth daily. [...] encounter Miscellaneous Notes * Telephone Encounter - Reno Ramírez DO - 12/24/2020 5:41 PM EDT Prescription rewritten and ready for fax as requested * Telephone Encounter - Marcy De La Rosa LPN - 12/24/2020 4:34 PM EDT Script written yesterday per Kavya Dillard. Can Dr. Ramírez sign script if re-printed under his name. Please fax to [facility] at: [phone] with yesterday's OFV notes and demographic sheet. Pended below. * Telephone Encounter - Adolph Choi OSA - 12/24/2020 4:24 PM EDT Caller states that [facility] did not receive paperwork needed for Pt's oxygen. Asking that Kavya TUCKER contacts [facility] documented in this encounter Plan of Treatment Upcoming Encounters Date Type Specialty Care Team Description 01/20/2021 Cardiac Studies Cardiac Studies Gw, [place] [address] 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
--- OUTSIDE RECORDS SUMMARY | 2023-04-08 23:15 | External Medical Summary ---
Author Name Unknown Address Unknown Organization K01:[facility] [address] [place] [address] Laboratory Report Ordering Provider Test Date Status ORVILLE SMITH 12/26/2020 16:03:58 Final Observation Date Value Abnormality Reference (Units ) Status BUN 12/26/2020 16:03:58 11 6-20 (mg/dL) Final Creatinine 12/26/2020 16:03:58 1.1 0.6-1.2 (mg/dL) Final Glomerular filtration rate/1.73 sq M.predicted [Volume Rate/Area] in Serum, Plasma or Blood by Creatinine-based formula (CKD-EPI) 12/26/2020 16:03:58 66.1 >=60.0 (mL/min) Final If patient is [place] an, multiply estimated GFR by 1.159. Sodium 12/26/2020 16:03:58 141 135-146 (m mol/L) Final Potassium 12/26/2020 16:03:58 3.7 3.5-5.1 (m mol/L) Final Cl 12/26/2020 16:03:58 101 98-107 (mm ol/L) Final CO2 12/26/2020 16:03:58 26 22-32 (mmo l/L) Final Anion gap 12/26/2020 16:03:58 14 7-15 (mmol /L) Final Glucose 12/26/2020 16:03:58 123 Above high normal 70 -120 (mg/dL) Final Albumin 12/26/2020 16:03:58 3.9 3.8-5.0 (g /dL) Final AST (Aspartate aminotransferase) 12/26/2020 16:03:58 23 10-50 (U/L) Fin al Alk Phos 12/26/2020 16:03:58 83 35-130 (U/ L) Final Bilirubin, Total 12/26/2020 16:03:58 0.5 <=1 .2 (mg/dL) Final Calcium 12/26/2020 16:03:58 9.5 8.4-10.2 ( mg/dL) Final Protein 12/26/2020 16:03:58 6.1 6.0-8.3 (g /dL) Final ALT (Alanine aminotransferase) 12/26/2020 16:03:58 12 10-50 (U/L) Varghese nixon Performing Location [facility] [address] [facility] [address]
--- OUTSIDE RECORDS SUMMARY | 2023-04-08 23:15 | External Medical Summary | Summary of Care ---
Author Name Unknown Organization [place] [address] Care Team Providers Care Application Development Intern Name Role Phone Alan Meyers MD Primary Care Provide r Reason for Visit * Reason Onset Date Comments Advice 11/11/2020 Encounter Details Date Type Department Care Team Description 11/11/2020 Telephone Family Medicine [address] [address] Alan Meyers MD [address] [place] [address] [place] [address] Advice Allergies No Known Active [...] 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 ([facility]) Inhale 1 Ampule via nebulizer 3 times a day. 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 Diagnosis code J96.11 Chronic Resp Failure with hypoxia on home oxygen therapy. 270 mL 4 07/25/2020 Active Ipratropium [place] 0.02 % Inhalation Solution (Atrovent)Indicatio ns:Stage 3 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 ([facility]) Inhale 2.5 mL via nebulizer 3 times a day. 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 Diagnosis code J96.11 Chronic Resp Failure with hypoxia on home oxygen therapy. 270 mL 4 07/25/2020 Active Folic Acid 1 MG Oral TabletIndications:C hronic respiratory failure with hypoxia, on home O2 therapy ([facility]) TAKE 1 TABLET BY MOUTH [...] tab, 0 Refill(s), Route to Pharmacy Electronically, [facility], [facility] - 0 11/16/2017 Active Spiriva Respimat 1.25 MCG/ACT Inhalation Aerosol Solution (Tiotropium [place] Monohydrate) Inhale 2 Puffs by mouth daily. [...] Miscellaneous Notes * Telephone Encounter - Kavya Dillard CRNP - 11/11/2020 1:35 PM EDT It looks like he should be on b12 and b1. He has had B12 level checked which was low end of normal in 2006. Recommend b 12 tablet daily. And B1 which I sent to pharmacy for him. Randy, MSN, GARRETT [facility] [place] * Telephone Encounter - Justa Ya LPN - 11/11/2020 9:27 AM EDT Patients daughter Maria Isabel calling. Patient takes 100mg of B1 daily, but she can not find it currently in any dose but 250mg. Would it be okay for him to take 250mg B1 daily? Call Maria Isabel at [phone] * Telephone Encounter - Mitzi Real OSA - 11/11/2020 9:24 AM EDT Reason for patient's call: medication question Caller was transferred to Justa at the nurse line. documented in this encounter Plan of Treatment Upcoming Encounters Date Type Specialty Care Team Description 12/23/2020 Office Visit Family Medicine Kav[facility] Dillard CRNP [address] [facility] [address] [phone] 08/05/2021 Pharmacy Structural Engineering Technician, Pharmacy Reimbursement [address] [place] [address] [phone] 09/08/2021 Pharmacy Structural Engineering Technician, Pharmacy Reimbursement [address] [place] [address] [phone] Health Maintenance Due Date Last Done Comments Zoster Vaccines (1 of 2) 1992 LUNG CANCER SCREENING YEARLY-USE SMARTSET 24855 06/23/2018 06/23/2017 *ADVANCE DIRECTIVE NOT ON FILE [...] Documents on File Type Date Recorded Patient 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
--- OUTSIDE RECORDS SUMMARY | 2023-04-08 23:15 | External Medical Summary ---
Author Name Unknown Address Unknown Organization K01:[facility] - [address] [place] [address] Laboratory Report Ordering Provider Test Date Status ORVILLE SMITH 12/26/2020 16:03:58 Final Observation Date Value Abnormality Reference (Units ) Status BNP, Pro-hormone 12/26/2020 16:03:58 350 Above high no rmal <300 (pg/mL) Final Performing Location [facility] - [address] [place] [address]
--- OUTSIDE RECORDS SUMMARY | 2023-04-08 23:16 | External Medical Summary | Summary of Care ---
Author Name Unknown Organization [place] [address] Care Team Providers Care Reaming Machine Operator Name Role Phone Alan Meyers MD Primary Care Provide r Reason for Visit * Reason Comments Patient Assistance Program Encounter Details Date Type Department Care Team Description 08/19/2020 Pharmacy Pharmacy, [place] [address] [place] [address] Coordinator, Pharmacy [facility] [address] [place] [address] [phone] Stage 3 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 (HCC)* Allergies No Known Active Allergiesdocumented as of this encounter (statuses as of 08/19/2020) Medications Medication Sig Dispensed Refills Start Date [...] For heartburn 60 Tab 5 06/01/2018 Active predniSONE 10 MG Oral Tablet (DELTASONE)Indicatio ns:COPD exacerbation (HCC) Take 5 tabs for 2 days, 4 tabs for 2 days, 3 tabs for 2 days, 2 tabs for 2 days 1 tab for 2 days 30 Tab 1 05/27/2020 Active Additional Information Patient not taking. Reported on 07/11/2020 predniSONE 10 MG Oral Tablet (DELTASONE)Indicatio ns:Severe chronic obstructive pulmonary disease (HCC) One daily with food 90 Tab 1 06/10/2020 Active Albuterol Sulfate HFA 108 (90 Base) MCG/ACT Inhalation Aerosol SolutionIndications: SOB (shortness of breath) Inhale 2 Puffs by mouth every 4 hours as needed for Shortness of Breath or Wheezing. 54 g 3 06/11/2020 Active predniSONE 10 MG Oral Tablet (Deltasone) Take 5 tabs for 2 days, 4 tabs for 2 days, 3 tabs for 2 days, 2 tabs for 2 days 1 tab for 2 days 30 Tab 0 07/11/2020 Active Levalbuterol HCl 1.25 MG/3ML Inhalation Nebulization Solution (Xopenex)Indications :Stage 3 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 ([facility]) Inhale 1 Ampule via nebulizer 3 times a day. 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 Diagnosis code J96.11 Chronic Resp Failure with hypoxia on home oxygen therapy. 270 mL 4 07/25/2020 Active Ipratropium [place] 0.02 % Inhalation Solution (Atrovent)Indication s:Stage 3 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 ([facility]) Inhale 2.5 mL via nebulizer [...] EVERY DAY 90 Tab 1 07/29/2020 Active documented as of this encounter (statuses as of 08/19/2020) Active Problems Problem Noted Date Chronic respiratory failure with hypoxia , on home O2 therapy 12/03/2017 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 documented as of this encounter (statuses as of 08/19/2020) Resolved Problems Problem Noted Date Resolved Date [...] as of this encounter (statuses as of 08/19/2020) Immunizations Name Administration Dates Next Due PPD [...] as of this encounter Progress Notes * Jackelyn Shelton OSA - 08/08/2020 9:15 AM EST Fax received from [employer], income documentation is needed to be faxed to [phone]. [facility] faxing 2019 income that was on file in [employer]. [facility] lm for patient to mail in current information for 2020 in case it is requested from [employer]. Also mailing letter with envelope to mail it to office JAH Conner Pharmaceutical Journeyman Level Acoustic Analyst 08/08/2020, 9:15 AM Fax received from [employer] patient approved for the program, enrollment ends 09/17/2021. Refill letter mailed to patient [facility] Conner Pharmaceutical Journeyman Level Acoustic Analyst 08/08/2020, 1:48 PM * Chele Gallardo OSA - 08/01/2020 2:06 PM EST Follow up needs to be made to [facility] Coverage:Medicare A and B (No D) [address] [facility] [address] [facility] [address] Patient Phone Numbers RX:Advair Diskus Dose: 250-50 Quanity 3 RX:Ventolin HFA Dose: 108 Quantity 3 Provider:Alan Meyers MD Please call [facility] to verify status of application. Phone number: [phone] Forms sent to provider:08/02/2020 Follow up needs to be made to patient There are no phone numbers on file., Patient Phone Numbers Coverage:Medicare A and B (No D) RX:Daliresp Provider:Alan Meyers MD Please call patient to verify status of [employer] PAP application. Forms sent: 08/02/2020 JAH Manriquez Pharmaceutical Journeyman Level Acoustic Analyst 08/01/2020, 2:07 PM PRC received phone message from Maria Isabel, received letter from [employer] requesting POI. PRC spoke to [facility] rep, patient is approved for Advair Diskus and Ventolin HFA through 09/17/2021. PRCspoke to son Daniel to make aware. Patient is scheduled 08/05/2021 for re-enrollment. JAH Manriquez Pharmaceutical Journeyman Level Acoustic Analyst 08/19/2020, 9:51 AM documented in this encounter Plan of Treatment Upcoming Encounters Date Type Specialty Care Team Description 08/30/2020 Pharmacy Instrument Engineer, Pharmacy Reimbursement [address] [place] [address] [phone] 08/05/2021 Pharmacy Instrument Engineer, Pharmacy Reimbursement [address] [place] [address] [phone] Health Maintenance Due Date Last Done Comments Zoster Vaccines (1 of 2) 1992 LUNG CANCER SCREENING YEARLY-USE SMARTSET 92483 06/23/2018 06/23/2017 Influenza Vaccine (FLU shot) (#1) [...] Documents on File Type Date Recorded 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
--- OUTSIDE RECORDS SUMMARY | 2023-04-08 23:16 | External Medical Summary | Summary of Care ---
Author Name Unknown Organization [place] [address] Care Team Providers Care Settlement Clerk Name Role Phone Alan Meyers MD Primary Care Provide r Reason for Visit * Reason Onset Date Comments Advice 08/22/2020 Encounter Details Date Type Department Care Team Description 08/22/2020 [address]phone [address] [address] Alan Meyers MD [address] [place] [address] [place] [address] Advice Allergies No Known Active Allergiesdocumented as of this encounter (statuses as of 08/22/2020) Medications Medication Sig Dispensed Refills Start Date End Date Status THIAMINE (VITAMIN B-1) 100 MG Tablet Take 100 mg by mouth daily. 0 7 Active oxygen GASIndications:Inc to 4LPM with ambulation/exertion Use 2 L/min(Oxygen) as directed continuous. Indications: Inc to 4LPM with ambulation/exertio n 0 7 Active acetaminophen (TYLENOL) 500 MG Tablet Take [...] therapy. 270 mL 4 1 Active Ipratropium [place] 0.02 % Inhalation Solution (Atrovent)Indicatio ns:Stage 3 [...] EVERY DAY 90 Tab 1 1 Active Fluticasone-Salmete rol 250-50 MCG/DOSE Inhalation Aerosol Powder Breath Activated (Advair Diskus)Indications: SOB (shortness of breath) Inhale 1 Puff by mouth 2 times a day. Brand necessary 3 Each 3 1 Active Ventolin HFA 108 (90 Base) MCG/ACT Inhalation Aerosol Solution Inhale 2 Puffs by mouth every 4 hours as needed for Wheezing. Brand necessary 54 g 3 1 Active predniSONE 20 MG Oral Tablet (Deltasone) Take 2 Tabs by mouth daily for 5 days. 10 Tab 0 1 08/28/19 21 Active predniSONE 10 MG Oral Tablet (DELTASONE)Indicati ons:COPD exacerbation (HCC) Take 5 tabs for 2 days, 4 tabs for 2 days, 3 tabs for 2 days, 2 tabs for 2 days 1 tab for 2 days 30 Tab 1 0 08/23/19 21 Discontinued predniSONE 10 MG Oral Tablet (DELTASONE)Indicati ons:Severe chronic obstructive pulmonary disease (HCC) One daily with food 90 Tab 1 1 08/23/19 21 Discontinued predniSONE 10 MG Oral Tablet (Deltasone) Take 5 tabs for 2 days, 4 tabs for 2 days, 3 tabs for 2 days, 2 tabs for 2 days 1 tab for 2 days 30 Tab 0 1 08/23/19 21 Discontinued documented as of this encounter (statuses as of 08/22/2020) Active Problems Problem Noted Date Chronic respiratory failure with hypoxia , on home O2 therapy 12/03/2017 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 documented as of this encounter (statuses as of 08/22/2020) Resolved Problems Problem Noted Date Resolved Date [...] as of this encounter (statuses as of 08/22/2020) Immunizations Name Administration Dates Next Due PPD [...] encounter Miscellaneous Notes * Telephone Encounter - Uvaldo Colón CPhT - 08/22/2020 5:44 PM EDT Pt calling to request Prednisone. Informed pt that RX is available at their pharmacy. Pt verbalizedunderstanding and stated they will check with their pharmacy regarding this medication. Thank you, Tommy Colón ([facility]) [facility] [employer] [facility] 08/22/2020, 5:44 PM * Telephone Encounter - aMrsha Mesa OSA - 08/22/2020 3:47 PM EDT Called pt and scheduled * Telephone Encounter - Rosalino De La Torre MD - 08/22/2020 1:22 PM EDT Nursing-please Call pt son below-- Given mult recent flares, would do prednisone 2 20mg pills together for 5 days only. No antibiotic recommended w/out fever. Use albuterol Q4-6h around the clock. Schedule COPD f/u in 2-3 days ( weekend clinic). ER if worsening. PCP no longer in office--would rec f/u with Wicho Dillard for next visit 1-2mos. * Telephone Encounter - Terrell Feliciano OSA - 08/22/2020 10:21 AM EDT Patient's daughter Maria Isabel calling requesting a message sent for advice. Maria Isabel states patient had been seen 07/11 for productive cough and nasal congestion - the same symptoms have now returned. Patient is coughing up green phlegm and has noted some sinus congestion as well; daughter declined scheduling an appointment at the time. Asking if patient should be seen or if medication can be sentagain, please advise, thanks. Callback - patient's son Jer: [phone] documented in this encounter Plan of Treatment Upcoming Encounters Date Type Specialty Care Team Description 08/30/2020 Pharmacy Sfdc Architect, Pharmacy Reimbursement [address], [place] [id number] 09/23/2020 Office Visit Family Medicine Kavya Dillard CRNP [address] [place] [address] [phone] 08/05/2021 Pharmacy Sfdc Architect, Pharmacy Reimbursement [address] [place] [address] [phone] Health Maintenance Due Date Last Done Comments Zoster Vaccines (1 of 2) 1992 LUNG CANCER SCREENING YEARLY-USE SMARTSET 29633 06/23/2018 06/23/2017 Influenza Vaccine (FLU shot) (#1) [...] Documents on File Type Date Recorded Patient Drug Room Operator 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 Advanced Directive Advanced Directive Advanced Directive Advanced Directive Advanced Directive Advanced Directive Advanced Directive Advanced Directive Advanced Directive Advanced Directive
--- OUTSIDE RECORDS SUMMARY | 2023-04-08 23:16 | External Medical Summary | Summary of Care ---
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 Diagnosis code J44.9 Stage 3 Sever COPD by Gold classification [facility]. Diagnosis code J96.11 Chronic Resp Failure with hypoxia on home oxygen therapy. 270 mL 4 07/25/2020 Active Ipratropium [place] 0.02 % Inhalation Solution (Atrovent)Indication s:Stage 3 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 ([facility]) Inhale 2.5 mL via nebulizer 3 times a day. Diagnosis code J44.9 Stage 3 Sever COPD by Gold classification [facility]. Diagnosis code J96.11 Chronic Resp Failure with hypoxia on home oxygen therapy. 270 mL 4 07/25/2020 Active Folic Acid 1 MG Oral TabletIndications:Ch ronic respiratory failure with hypoxia, on home O2 therapy ([facility]) TAKE 1 TABLET BY MOUTH EVERY [...] as of this encounter (statuses as of 08/08/2020) Active Problems Problem Noted Date Chronic respiratory failure with hypoxia , on home O2 therapy 12/03/2017 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 documented as of this encounter (statuses as of 08/08/2020) Resolved Problems Problem Noted Date Resolved Date [...] as of this encounter (statuses as of 08/08/2020) Immunizations Name Administration Dates Next Due PPD [...] Notes * Jackelyn Shelton OSA - 08/08/2020 9:13 AM EST Fax received from [employer], income documentation is needed to be faxed to [phone]. [facility] faxing 2019 income that was on file in [facility]. [facility] lm for patient to mail in current information for 2020 in case it is requested from [employer]. Also mailing letter with envelope to mail it to office JAH Conner Pharmaceutical Safety Director 08/08/2020, 9:15 AM Fax received patient approved for the program, enrollment ends 09/17/2021. Refill letter mailed to patient JAH Conner Pharmaceutical Safety Director 08/08/2020, 1:47 PM documented in this encounter Plan of Treatment Upcoming Encounters Date Type Specialty Care Team Description 08/19/2020 Pharmacy Hat And Cap Opener, Pharmacy Reimbursement [address] [place] [address] [phone] Health Maintenance Due Date Last Done Comments Zoster Vaccines (1 of 2) 1992 LUNG CANCER SCREENING YEARLY-USE SMARTSET 38438 06/23/2018 06/23/2017 Influenza Vaccine (FLU shot) (#1) [...] COPD by GOLD classification ([facility])- Primary documented in this encounter Advance Directives Documents on File Type Date Recorded Patient Machine Maintenance Servicer 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 Advanced Directive Advanced Directive Advanced Directive Advanced Directive Advanced Directive Advanced Directive
--- OUTSIDE RECORDS SUMMARY | 2023-04-08 23:16 | External Medical Summary | Summary of Care ---
Author Name Unknown Organization [place] [address] Care Team Providers Care Anthropology Department Chair Name Role Phone Alan Meyers MD Primary Care Provide r Reason for Visit * Reason Comments Patient Assistance Program Encounter Details Date Type Department Care Team Description 08/16/2020 Pharmacy Pharmacy, [place] [address] [place] [address] Coordinator, Pharmacy [facility] [address] [place] [address] [phone] COPD, severe (HCC)* Allergies No Known Active Allergiesdocumented as of this encounter (statuses as of 08/16/2020) Medications Medication Sig Dispensed Refills Start Date [...] 3 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 ([facility]) Inhale 1 Ampule via nebulizer 3 times a day. Diagnosis code J44.9 Stage 3 Sever COPD by Gold classification [facility]. Diagnosis code J96.11 Chronic Resp Failure with hypoxia on home oxygen therapy. 270 mL 4 07/25/2020 Active Ipratropium [place] 0.02 % Inhalation Solution (Atrovent)Indication s:Stage 3 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 ([facility]) Inhale 2.5 mL via nebulizer 3 times a day. Diagnosis code J44.9 Stage 3 Sever COPD by Gold classification [facility]. Diagnosis code J96.11 Chronic Resp Failure with hypoxia on home oxygen therapy. 270 mL 4 07/25/2020 Active Folic Acid 1 MG Oral TabletIndications:Ch ronic respiratory failure with hypoxia, on home O2 therapy ([facility]) TAKE 1 TABLET BY MOUTH [...] as of this encounter (statuses as of 08/16/2020) Active Problems Problem Noted Date Chronic respiratory failure with hypoxia , on home O2 therapy 12/03/2017 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 documented as of this encounter (statuses as of 08/16/2020) Resolved Problems Problem Noted Date Resolved Date [...] as of this encounter (statuses as of 08/16/2020) Immunizations Name Administration Dates Next Due PPD [...] Progress Notes * Chele Gallardo OSA - 08/16/2020 8:51 AM EST Completed [employer] application for [employer] and proof of income were received on 08/15/2020. The documents were forwarded to Alan Meyers MD to sign and submit to the company. If the patient is approved by the program, a 90 day supply of this medication should arrive at [address] [place] [address] in approximately 30 days. 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)* 08/30/2020 Pharmacy [place], Pharmacy Reimbursement [address] [facility] [address] 08/05/2021 Pharmacy [place]ler [place] Mill, Pharmacy Reimbursement [address] [place] [facility] [place] [address] Health Maintenance Due Date Last Done Comments Zoster Vaccines (1 of 2) 1992 LUNG CANCER SCREENING YEARLY-USE SMARTSET 73519 06/23/2018 06/23/2017 Influenza Vaccine (FLU shot) (#1) [...] Primary Chronic airway obstruction, not elsewhere classified Stage 3 severe COPD by GOLD classification (HCC)- Primary documented in this encounter Advance Directives Documents on File Type Date Recorded Patient Commercial Green Building Designer 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 Advanced Directive Advanced Directive Advanced Directive Advanced Directive Advanced Directive Advanced Directive Advanced Directive Advanced Directive Advanced Directive
--- OUTSIDE RECORDS SUMMARY | 2023-04-08 23:16 | External Medical Summary | Summary of Care ---
Author Name Unknown Organization [place] [address] Care Team Providers Care Business Agent Name Role Phone Alan Meyers MD Primary Care Provide r Reason for Visit * Reason Comments Patient Assistance Program Encounter Details Date Type Department Care Team Description 08/19/2020 Pharmacy Pharmacy, [place] [address] [place] [address] Coordinator, Pharmacy [facility] [address] [place] [address] [phone] Stage 3 severe COPD by GOLD classification [...] :Stage 3 severe COPD by GOLD classification ([facility]) Inhale 1 Ampule via nebulizer 3 times a day. Diagnosis code J44.9 Stage 3 Sever COPD by Gold classification [facility]. Diagnosis code J96.11 Chronic Resp Failure with hypoxia on home oxygen therapy. 270 mL 4 07/25/2020 Active Ipratropium [place] 0.02 % Inhalation Solution (Atrovent)Indication s:Stage 3 [...] 08/08/2020 9:15 AM EST Fax received from [employer], income documentation is needed to be faxed to [phone]. [facility] faxing 2019 income that was on file in [employer]. [facility] lm for patient to mail in current information for 2020 in case it is requested from [employer]. Also mailing letter with envelope to mail it to office JAH Conner Pharmaceutical Book Cutter 08/08/2020, 9:15 AM Fax received from [employer] patient approved for the program, enrollment ends 09/17/2021. Refill letter mailed to patient [facility] Conner Pharmaceutical Book Cutter 08/08/2020, 1:48 PM * Chele Gallardo OSA - 08/01/2020 2:06 PM EST Follow up needs to be made to [facility] Coverage:Medicare A and B (No D) [address] [facility] [address] [facility] [address] Patient Phone Numbers RX:Advair Diskus Dose: 250-50 Quanity 3 RX:Ventolin HFA Dose: 108 Quantity 3 Provider:Alan Meyers MD Please call [facility] to verify status of application. Phone number: [phone] Forms sent to provider:08/02/2020 Follow up needs to be made to patient There are no phone numbers on file., Patient Phone Numbers Coverage:Medicare A and B (No D) RX:Daliresp Provider:Alan Meyers MD Please call patient to verify status of [employer] PAP application. Forms sent: 08/02/2020 JAH Manriquez Pharmaceutical Book Cutter 08/01/2020, 2:07 PM documented in this encounter Plan of Treatment Upcoming Encounters Date Type Specialty Care Team Description 08/05/2021 Pharmacy Equipment Operator/Laborer, Pharmacy Reimbursement [address] [facility] [place] [address] [phone] Health Maintenance Due Date Last Done Comments Zoster Vaccines (1 of 2) 1992 LUNG CANCER SCREENING YEARLY-USE SMARTSET [address]175 06/23/2018 06/23/2017 Influenza Vaccine (FLU shot) (#1) [...] Documents on File Type Date Recorded Patient Timing Inspector 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 Advanced Directive Advanced Directive Advanced Directive Advanced Directive Advanced Directive Advanced Directive Advanced Directive
--- OUTSIDE RECORDS SUMMARY | 2023-04-08 23:16 | External Medical Summary | Summary of Care ---
Author Name Unknown Organization [place] [address] Care Team Providers Care Long Lines Operator Name Role Phone Alan Meyers MD Primary Care Provide r Reason for Visit * Reason Onset Date Comments Medication Refill 09/16/2020 Encounter Details Date Type Department Care Team Description 09/16/2020 Telephone Family Practice [address] [place] [address] Alan Meyers MD [address] [place] [address] [place] [address] Medication Refill Allergies No Known Active Allergiesdocumented as of this encounter (statuses as of 09/18/2020) Medications Medication Sig Dispensed Refills Start Date [...] :Stage 3 severe COPD by GOLD classification ([facility]) Inhale 1 Ampule via nebulizer 3 times a day. Diagnosis code J44.9 Stage 3 Sever COPD by Gold classification [facility]. Diagnosis code J96.11 Chronic Resp Failure with hypoxia on home oxygen therapy. 270 mL 4 07/25/2020 Active Ipratropium [place] 0.02 % Inhalation Solution (Atrovent)Indication s:Stage 3 severe COPD by GOLD classification ([facility], [...] as of this encounter (statuses as of 09/18/2020) Active Problems Problem Noted Date Chronic respiratory failure with hypoxia , on home O2 therapy 12/03/2017 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 documented as of this encounter (statuses as of 09/18/2020) Resolved Problems Problem Noted Date Resolved Date [...] as of this encounter (statuses as of 09/18/2020) Immunizations Name Administration Dates Next Due PPD [...] that he will follow up with his Mud Temperer then * Telephone Encounter - Mayra Tran LPN - 09/18/2020 1:21 PM EDT Pt returning call, advised of message below. Voiced understanding. No further questions at this time. * Telephone Encounter - Ligia Dewitt LPN - 09/18/2020 8:40 AM EDT Called patient received voiced mail. Left message to return call To [phone] * Telephone Encounter - aKvya Dillard CRNP - 09/18/2020 7:18 AM EDT Noted. Recommend discontinue prednisone. Randy, AMBER, GARRETT [facility] * Telephone Encounter - Jamila Drummond OSA [...] mail. Request pending Thank You, Elvi Ortez Cpht Fire Protection Designer [facility] Telepharmacy 09/16/2020, 9:08 AM * Telephone Encounter - Ragini Chao CPhT - 09/16/2020 7:55 AM EDT Patients daughter requesting refills for prednisone 10mg. Upon chart review, medication is listed as discontinued, with discontinuation reason as "refill". Please advise if you wish to continue this therapy for the patient. Pt needs refill ordered today he is out of medication ThanksRagini Fire Protection Designer II Pharmacy Refill Call Center 17:56 AM documented in this encounter Plan of Treatment Upcoming Encounters Date Type Specialty Care Team Description 09/23/2020 Office Visit Family Medicine Kavya Dillard CRNP [address] [facility] [place] [address] [phone] 09/24/2020 Pharmacy Audograph Operator, Pharmacy Reimbursement [address] [place], [place] [id number] 08/05/2021 Pharmacy Audograph Operator, Pharmacy Reimbursement [address] [place] [address] [phone] Health Maintenance Due Date Last Done Comments Zoster Vaccines (1 of 2) 1992 LUNG CANCER SCREENING YEARLY-USE SMARTSET 72132 06/23/2018 06/23/2017 Influenza Vaccine (FLU shot) (#1) [...] Documents on File Type Date Recorded 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
--- OUTSIDE RECORDS SUMMARY | 2023-04-08 23:16 | External Medical Summary | Summary of Care ---
Author Name Unknown Organization [place] [address] Care Team Providers Care Minesweeping Officer Name Role Phone Alan Meyers MD Primary Care Provide r Reason for Visit * Reason Comments Patient Assistance Program Encounter Details Date Type Department Care Team Description 08/30/2020 Pharmacy Pharmacy, [place] [address] [place] [address] Coordinator, Pharmacy [facility] [address] [place] [address] [phone] COPD, severe (HCC)* Allergies No Known Active Allergiesdocumented as of this encounter (statuses as of 08/30/2020) Medications Medication Sig Dispensed Refills Start Date [...] GOLD classification ([facility]) Inhale 1 Ampule via nebulizer 3 times a day. Diagnosis code J44.9 Stage 3 Sever COPD by Gold classification [facility]. Diagnosis code J96.11 Chronic Resp Failure with hypoxia on home oxygen therapy. 270 mL 4 07/25/2020 Active Ipratropium [place] 0.02 % Inhalation Solution (Atrovent)Indication s:Stage 3 severe COPD by GOLD classification ([facility]) Inhale 2.5 mL via nebulizer 3 times a day. Diagnosis code J44.9 Stage 3 Sever COPD by Gold classification [facility]. Diagnosis code J96.11 Chronic Resp Failure with hypoxia on home oxygen therapy. 270 mL 4 07/25/2020 Active Folic Acid 1 MG Oral TabletIndications:Ch ronic respiratory failure with hypoxia, on home O2 therapy ([facility]) TAKE 1 TABLET BY MOUTH EVERY [...] as of this encounter (statuses as of 08/30/2020) Active Problems Problem Noted Date Chronic respiratory failure with hypoxia , on home O2 therapy 12/03/2017 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 documented as of this encounter (statuses as of 08/30/2020) Resolved Problems Problem Noted Date Resolved Date [...] as of this encounter (statuses as of 08/30/2020) Immunizations Name Administration Dates Next Due PPD [...] of this encounter Progress Notes * Chele Gallardo, JAH - 08/16/2020 8:53 AM EST Follow up needs to be made to [employer] Coverage:Medicare A and B (No D) [address] [facility] [address] [facility] [address] Patient Phone Numbers RX:Daliresp Dose: 500 MCG Quanity 90 Provider:Alan Meyers MD ID# [id number] Please call [employer] to verify status of application. Phone number: [phone] Forms sent to provider:[facility] faxed all documents 08/16/2020. JAH Manriquez [employer] Goat Farmer 08/16/2020, 8:54 AM PRC spoke to [employer] rep, re-enrollment application was received but it is too soon to be processed. Will not be processed until after . [facility] follow up [employer] 09/24/2020. JAH Manriquez [employer] Goat Farmer 08/30/2020, 11:05 AM documented in this encounter Plan of Treatment Upcoming Encounters Date Type Specialty Care Team Description 09/23/2020 Office Visit Family Medicine Kavya Dillard CRNP [address] [facility] [place] [id number] 09/24/2020 Pharmacy Half Backer, Pharmacy Reimbursement [address] [place] [address] [phone] 08/05/2021 Pharmacy Half Backer, Pharmacy Reimbursement [address] [place] [address] [phone] Health Maintenance Due Date Last Done Comments Zoster Vaccines (1 of 2) 1992 LUNG CANCER SCREENING YEARLY-USE SMARTSET 96333 06/23/2018 06/23/2017 Influenza Vaccine (FLU shot) (#1) [...] Documents on File Type Date Recorded Patient Children'S Attendant 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 Advanced Directive Advanced Directive Advanced Directive Advanced Directive Advanced Directive Advanced Directive Advanced Directive Advanced Directive Advanced Directive Advanced Directive Advanced Directive
--- OUTSIDE RECORDS SUMMARY | 2023-04-08 23:16 | External Medical Summary | Summary of Care ---
Author Name Unknown Organization [place] [address] Care Team Providers Care Concierge Manager Name Role Phone Alan Meyers MD Primary Care Provide r Reason for Visit * Reason Onset Date Comments Medication Refill 09/16/2020 Encounter Details Date Type Department Care Team Description 09/16/2020 Telephone Family Practice [address] [place] [address] Alan Meyers MD [address] [place] [address] [place] [address] Medication Refill Allergies No Known [...] therapy. 270 mL 4 07/25/2020 Active Ipratropium [place] 0.02 % Inhalation Solution (Atrovent)Indication s:Stage 3 [...] encounter Miscellaneous Notes * Telephone Encounter - Ligia Dewitt LPN - 09/19/2020 10:12 AM EDT Called patient received voiced mail. Left message to return call * Telephone Encounter - Kavya Dillard CRNP - 09/18/2020 3:44 PM EDT Per the pulmonary notes from [facility] he was only supposed to take the prednisone for aflare up of COPD which is why I recommended he discontinue the prednisone. He does not have to taper off of 10 mg ... can just stop. Randy, MSN, GARRETT [facility] * Telephone Encounter - Sayra Carvalho LPN - 09/18/2020 1:23 PM EDT Pt wanted to know who Wicho Dillard works for, which office Advised that she is in the office, Family Practice He states that he will follow up with his Transfer Driver then * Telephone Encounter - Mayra Tran LPN - 09/18/2020 1:21 PM EDT Pt returning call, advised of message below. Voiced understanding. No further questions at this time. * Telephone Encounter - Ligia Dewitt LPN - 09/18/2020 8:40 AM EDT Called patient received voiced mail. Left message to return call To [phone] * Telephone Encounter - Kavya Dillard CRNP - 09/18/2020 7:18 AM EDT Noted. Recommend discontinue prednisone. Randy, MSN, GARRETT [facility] * Telephone Encounter - Jamila [...] before refill * Telephone Encounter - Elvi Ortez, mortgage closing clerk - 09/16/2020 9:08 AM EDT Clearing after hours voice mail. Request pending Thank You, Elvi Ortez Cpht Aquaculture Program Director Rm Telepharmacy 09/16/2020, 9:08 AM * Telephone Encounter - Ragini Chao CPhT - 09/16/2020 7:55 AM EDT Patients daughter requesting refills for prednisone 10mg. Upon chart review, medication is listed as discontinued, with discontinuation reason as "refill". Please advise if you wish to continue this therapy for the patient. Pt needs refill ordered today he is out of medication Thanks, Ragini Chao Aquaculture Program Director II Pharmacy Refill Call Center 17:56 AM documented in this encounter Plan of Treatment Upcoming Encounters Date Type Specialty Care Team Description 09/23/2020 Office Visit Family Medicine Kavya Dillard CRNP [address] [place] [address] [phone] 09/24/2020 Pharmacy Vertical Punch Operator, Pharmacy Reimbursement [address] [place] [address] [phone] 08/05/2021 Pharmacy Vertical Punch Operator, Pharmacy Reimbursement [address] [place] [address] [phone] Health Maintenance Due Date Last Done Comments Zoster Vaccines (1 of 2) 1992 LUNG CANCER SCREENING YEARLY-USE SMARTSET 00159 06/23/2018 06/23/2017 Influenza Vaccine (FLU shot) (#1) [...] Documents on File Type Date Recorded 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
--- OUTSIDE RECORDS SUMMARY | 2023-04-08 23:16 | External Medical Summary | Summary of Care ---
Author Name Unknown Organization [place] [address] Care Team Providers Care Chief Optometry Service Name Role Phone Alan Meyers MD Primary Care Provide r Reason for Visit * Reason Onset Date Comments Medication Refill 09/16/2020 Encounter Details Date Type Department Care Team Description 09/16/2020 Telephone Family Practice [address] [place] [address] Alan Meyers MD [address] [place] [address] [place] [address] Medication Refill Allergies No Known [...] severe COPD by GOLD classification ([facility]) Inhale 1 Ampule via nebulizer 3 times a day. 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 Diagnosis code J96.11 Chronic Resp Failure with hypoxia on home oxygen therapy. 270 mL 4 07/25/2020 Active Ipratropium [place] 0.02 % Inhalation Solution (Atrovent)Indication s:Stage 3 severe COPD by GOLD classification ([facility]) Inhale 2.5 mL via nebulizer 3 times a day. 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 Diagnosis code J96.11 Chronic Resp Failure with hypoxia on home oxygen therapy. 270 mL 4 07/25/2020 Active Folic Acid 1 MG Oral TabletIndications:Ch ronic respiratory failure with hypoxia, on home O2 therapy ([facility]) TAKE 1 TABLET BY MOUTH EVERY [...] that he will follow up with his Client Associate then * Telephone Encounter - Mayra Tran LPN - 09/18/2020 1:21 PM EDT Pt returning call, advised of message below. Voiced understanding. No further questions at this time. * Telephone Encounter - Ligia Dewitt LPN - 09/18/2020 8:40 AM EDT Called patient received voiced mail. Left message to return call To [phone] * Telephone Encounter - Kavya Dillard CRNP - 09/18/2020 7:18 AM EDT Noted. Recommend discontinue prednisone. Randy, AMBER, GARRETT [facility] * Telephone Encounter - Jamila [...] Request pending Thank You, Elvi Ortez Cpht Sonography Technician [facility] Telepharmacy 09/16/2020, 9:08 AM * Telephone Encounter - Ragini Chao CPhT - 09/16/2020 7:55 AM EDT Patients daughter requesting refills for prednisone 10mg. Upon chart review, medication is listed as discontinued, with discontinuation reason as "refill". Please advise if you wish to continue this therapy for the patient. Pt needs refill ordered today he is out of medication ThanksRagini Sonography Technician II Pharmacy Refill Call Center 17:56 AM documented in this encounter Plan of Treatment Upcoming Encounters Date Type Specialty Care Team Description 09/23/2020 Office Visit Family Medicine Kavya Dillard CRNP [address] [facility] [place] [address] [phone] 09/24/2020 Pharmacy Data Administrator, Pharmacy Reimbursement [address] [place], [place] [address] 08/05/2021 Pharmacy Data Administrator, Pharmacy Reimbursement [address] [place] [address] [phone] Health Maintenance Due Date Last Done Comments Zoster Vaccines (1 of 2) 1992 LUNG CANCER SCREENING YEARLY-USE SMARTSET 56824 06/23/2018 06/23/2017 Influenza Vaccine (FLU shot) (#1) [...] Documents on File Type Date Recorded Patient Rib Chopper 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 Advanced Directive Advanced Directive Advanced Directive Advanced Directive Advanced Directive Advanced Directive Advanced Directive Advanced Directive Advanced Directive Advanced Directive Advanced Directive
--- OUTSIDE RECORDS SUMMARY | 2023-04-08 23:16 | External Medical Summary | Summary of Care ---
Author Name Unknown Organization [place] [address] Care Team Providers Care Communication Assistant Name Role Phone Alan Meyers MD Primary Care Provide r Reason for Visit * Reason Onset Date Comments Forms Request 08/07/2020 Forms Request 08/08/2020 Encounter Details Date Type Department Care Team Description 08/07/2020 Telephone Family Practice [address] [place] [address] [address] Alan Meyers MD [address] [place] [address] Forms Request; Forms Request Allergies No Known Active Allergiesdocumented as of this encounter (statuses as of 08/12/2020) Medications Medication Sig Dispensed Refills Start Date [...] severe COPD by GOLD classification ([facility]) Inhale 1 Ampule via nebulizer 3 times a day. 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 Diagnosis code J96.11 Chronic Resp Failure with hypoxia on home oxygen therapy. 270 mL 4 07/25/2020 Active Ipratropium [place] 0.02 % Inhalation Solution (Atrovent)Indication s:Stage 3 severe COPD by GOLD classification ([facility]) Inhale 2.5 mL via nebulizer 3 times a day. 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 Diagnosis code J96.11 Chronic Resp Failure with hypoxia on home oxygen therapy. 270 mL 4 07/25/2020 Active Folic Acid 1 MG Oral TabletIndications:Ch ronic respiratory failure with hypoxia, on home O2 therapy ([facility]) TAKE 1 TABLET BY MOUTH EVERY [...] as of this encounter (statuses as of 08/12/2020) Active Problems Problem Noted Date Chronic respiratory failure with hypoxia , on home O2 therapy 12/03/2017 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 documented as of this encounter (statuses as of 08/12/2020) Resolved Problems Problem Noted Date Resolved Date [...] as of this encounter (statuses as of 08/12/2020) Immunizations Name Administration Dates Next Due PPD [...] Telephone Encounter - Shannan Posey LPN - 08/08/2020 4:54 PM EST Called and spoke with pts son, aware and states he will knot picker cloth today Placed in envelope at check in * Telephone Encounter - Alan Meyers MD - 08/08/2020 4:28 PM EST Form signed * Telephone Encounter - Shannan Posey LPN - 08/08/2020 4:06 PM EST Forms dropped off and placed on Dr. Meyers's desk * Telephone Encounter - Shannan Posey LPN - 08/08/2020 3:18 PM EST pts daughter nayan calling in and is extremely upset that she cannot just have the forms completed while she waits. Aware forms need to be dropped off tonight and states "she will have her old man drop them off" states " I still need to go to dads and fill part of them out" pts daughter aware Dr. Meyers's last dayis tomorrow * Telephone Encounter - Alan Meyers MD - 08/08/2020 1:15 PM EST pls drop off forms * Telephone Encounter - Nicole Rincon OSA - 08/08/2020 8:26 AM EST Patient calling in to check on the status of previous message. Pt daughter is requesting doctor to sign forms as she waits-she is requesting to know when she can come to complete Please call her pt son Daniel [phone] * Telephone Encounter - Shannan Posey LPN - 08/07/2020 4:44 PM EST pts daughter calling and requesting forms to be completed, pts daughter states she wants to bring them up and have them signed while she waits. Pts daughter states they are for his medication. Pleaseadvise documented in this encounter Plan of Treatment Upcoming Encounters Date Type Specialty Care Team Description 08/19/2020 Pharmacy Machine Driller, Pharmacy Reimbursement [address] [place] [address] [phone] Stage 3 severe COPD by GOLD classification (HCC)* 08/05/2021 Pharmacy Machine Driller, Pharmacy Reimbursement [address] [place] [address] [phone] Health Maintenance Due Date Last Done Comments Zoster Vaccines (1 of 2) 1992 LUNG CANCER SCREENING YEARLY-USE SMARTSET 309[address] 06/23/2018 06/23/2017 Influenza Vaccine (FLU shot) (#1) [...] Documents on File Type Date Recorded Patient 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
--- OUTSIDE RECORDS SUMMARY | 2023-04-08 23:16 | External Medical Summary | Summary of Care ---
Author Name Unknown Organization [place] [address] Care Team Providers Care Sanitation Associate Name Role Phone Alan Meyers MD Primary Care Provide r Reason for Visit * Reason Comments Patient Assistance Program Encounter Details Date Type Department Care Team Description 08/16/2020 Pharmacy Pharmacy, [place] [address] [place] [address] Coordinator, Pharmacy [facility] [address] [place] [address] [phone] COPD, severe (HCC)* Allergies No Known Active [...] severe COPD by GOLD classification ([facility]) Inhale 1 Ampule via nebulizer 3 times a day. 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 Diagnosis code J96.11 Chronic Resp Failure with hypoxia on home oxygen therapy. 270 mL 4 07/25/2020 Active Ipratropium [place] 0.02 % Inhalation Solution (Atrovent)Indication s:Stage 3 severe COPD by GOLD classification ([facility]) Inhale 2.5 mL via nebulizer 3 times a day. 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 Diagnosis code J96.11 Chronic Resp Failure with hypoxia on home oxygen therapy. 270 mL 4 07/25/2020 Active Folic Acid 1 MG Oral TabletIndications:Ch ronic respiratory failure with hypoxia, on home O2 therapy ([facility]) TAKE 1 TABLET BY MOUTH EVERY DAY [...] EST Completed [employer] application for Personalis and proof of income were received on 08/15/2020. The documents were signed by Alan Meyers MD. [facility] faxed all documents to [employer] . If the patient is approved by the program, a 90 day supply of this medication should arrive at [address] [place] [address] in approximately 30 days. Follow up [employer] 2 weeks 08/30/2020 JAH Man[employer]quez [employer] Senior Telecommunications Specialist 08/16/2020, 8:52 AM documented in this encounter Plan of Treatment Upcoming Encounters Date Type Specialty Care Team Description 08/19/2020 Pharmacy Customer Security Clerk, Pharmacy Reimbursement [address] [place] [address] Stage 3 severe COPD by GOLD classification (HCC)* 08/30/2020 Pharmacy Customer Security Clerk, Pharmacy Reimbursement [address] [place] [address] 08/05/2021 Pharmacy Customer Security Clerk, Pharmacy Reimbursement [address] [place] [address] Health Maintenance Due Date Last Done Comments Zoster Vaccines (1 of 2) 1992 LUNG CANCER SCREENING YEARLY-USE SMARTSET 69641 06/23/2018 06/23/2017 Influenza Vaccine (FLU shot) (#1) [...] Documents on File Type Date Recorded Patient Health Service Worker 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 Advanced Directive Advanced Directive Advanced Directive Advanced Directive Advanced Directive Advanced Directive Advanced Directive Advanced Directive Advanced Directive
--- OUTSIDE RECORDS SUMMARY | 2023-04-08 23:16 | External Medical Summary | Summary of Care ---
Author Name Unknown Organization [place] [address] Care Team Providers Care Optics Manufacturing Technician Name Role Phone Alan Meyers MD Primary Care Provide r Reason for Visit * Reason Onset Date Comments FYI 08/23/2020 Encounter Details Date Type Department Care Team Description 08/23/2020 Telephone Family Practice [facility] [address] [place] [address] Kavya Dillard CRNP 132 [place] [address] [phone] FYI Allergies No Known Active Allergiesdocumented as of this encounter (statuses as of 08/23/2020) Medications Medication Sig Dispensed Refills Start Date [...] classification ([facility]) Inhale 1 Ampule via nebulizer 3 times a day. 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 Diagnosis code J96.11 Chronic Resp Failure with hypoxia on home oxygen therapy. 270 mL 4 07/25/2020 Active Ipratropium Bypro 0.02 % Inhalation Solution (Atrovent)Indication s:Stage 3 severe COPD by GOLD classification ([facility]) Inhale 2.5 mL via nebulizer 3 times a day. 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 Diagnosis code J96.11 Chronic Resp Failure with hypoxia on home oxygen therapy. 270 mL 4 07/25/2020 Active Folic Acid 1 MG Oral TabletIndications:Ch ronic respiratory failure with hypoxia, on home O2 therapy ([facility]) TAKE 1 TABLET BY MOUTH EVERY [...] Brand necessary 54 g 3 08/06/2020 Active predniSONE 20 MG Oral Tablet (Deltasone) Take 2 Tabs by mouth daily for 5 days. 10 Tab 0 08/22/2020 Active documented as of this encounter (statuses as of 08/23/2020) Active Problems Problem Noted Date Chronic respiratory failure with hypoxia , on home O2 therapy 12/03/2017 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 documented as of this encounter (statuses as of 08/23/2020) Resolved Problems Problem Noted Date Resolved Date [...] as of this encounter (statuses as of 08/23/2020) Immunizations Name Administration Dates Next Due PPD [...] encounter Miscellaneous Notes * Telephone Encounter - Marylin Vides PHARM Tech - 08/23/2020 2:17 PM EDT [place] is pharmacy will fax a letter for prescription for Daliresp. Thanks, Marylin Vides Hydrocrane Operator [facility] 08/23/2020, 2:26 PM documented in this encounter Plan of Treatment Upcoming Encounters Date Type Specialty Care Team Description 08/30/2020 Pharmacy Commercial Real Estate Paralegal, Pharmacy Reimbursement [address] [place] [address] [phone] 09/23/2020 Office Visit Family Medicine Kavya Dillard CRNP [address] [place], [place] [id number] 08/05/2021 Pharmacy Commercial Real Estate Paralegal, Pharmacy Reimbursement [address] [place] [address] [phone] Health Maintenance Due Date Last Done Comments Zoster Vaccines (1 of 2) 1992 LUNG CANCER SCREENING YEARLY-USE SMARTSET 85642 06/23/2018 06/23/2017 Influenza Vaccine (FLU shot) (#1) [...] Documents on File Type Date Recorded Patient Helicopter Technician 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 Advanced Directive Advanced Directive Advanced Directive Advanced Directive Advanced Directive Advanced Directive Advanced Directive Advanced Directive Advanced Directive Advanced Directive
--- OUTSIDE RECORDS SUMMARY | 2023-04-08 23:16 | External Medical Summary | Summary of Care ---
Author Name Unknown Organization [place] [address] Care Team Providers Care Medical Care Evaluation Specialist Name Role Phone Alan Meyers MD Primary Care Provide r Reason for Visit * Reason Comments Patient Assistance Program Encounter Details Date Type Department Care Team Description 08/19/2020 Pharmacy Pharmacy, [place] [address] [place] [address] Coordinator, Pharmacy [facility] [address] [place] [address] [phone] Stage 3 severe COPD by GOLD classification [...] :Stage 3 severe COPD by GOLD classification ([facility]) Inhale 1 Ampule via nebulizer 3 times a day. 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 Diagnosis code J96.11 Chronic Resp Failure with hypoxia on home oxygen therapy. 270 mL 4 07/25/2020 Active Ipratropium [place] 0.02 % Inhalation Solution (Atrovent)Indication s:Stage 3 [...] 08/08/2020 9:15 AM EST Fax received from [employer], income documentation is needed to be faxed to [phone]. [facility] faxing 2019 income that was on file in [employer]. [facility] lm for patient to mail in current information for 2020 in case it is requested from [employer]. Also mailing letter with envelope to mail it to office JAH Conner Pharmaceutical Store Clerk Checker 08/08/2020, 9:15 AM Fax received from [employer] patient approved for the program, enrollment ends 09/17/2021. Refill letter mailed to patient [facility] Pharm[facility] Store Clerk Checker 08/08/2020, 1:48 PM * Chele Gallardo OSA - 08/01/2020 2:06 PM EST Follow up needs to be made to [facility] Coverage:Medicare A and B (No D) [address] [facility] [address] [facility] [address] Patient Phone Numbers RX:Advair Diskus Dose: 250-50 Quanity 3 RX:Ventolin HFA Dose: 108 Quantity 3 Provider:Alan Meyers MD Please call [facility] to verify status of application. Phone number: [phone] Forms sent to provider:08/02/2020 Follow up needs to be made to patient There are no phone numbers on file., Patient Phone Numbers Coverage:Medicare A and B (No D) RX:Daliresp Provider:Alan Meyers MD Please call patient to verify status of [place] PAP application. 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
--- OUTSIDE RECORDS SUMMARY | 2023-04-08 23:16 | External Medical Summary | Summary of Care ---
Author Name Unknown Organization [place] [address] Care Team Providers Care Clinic Nurse Name Role Phone Alan Meyers MD Primary Care Provide r Reason for Visit * Reason Onset Date Comments Medication Refill 09/16/2020 FYI 09/19/2020 Encounter Details Date Type Department Care Team Description 09/16/2020 Telephone Family Practice [facility] [address] [place] [address] Alan Meyers MD [address] [place] [address] Medication Refill; FYI Allergies No Known [...] :Stage 3 severe COPD by GOLD classification ([facility]) Inhale 1 Ampule via nebulizer 3 times a day. 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 Diagnosis code J96.11 Chronic Resp Failure with hypoxia on home oxygen therapy. 270 mL 4 07/25/2020 Active Ipratropium [place] 0.02 % Inhalation Solution (Atrovent)Indication s:Stage 3 severe COPD by GOLD classification ([facility]) Inhale 2.5 mL via nebulizer 3 times a day. 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 Diagnosis code J96.11 Chronic Resp Failure with hypoxia on home oxygen therapy. 270 mL 4 07/25/2020 Active Folic Acid 1 MG Oral TabletIndications:Ch ronic respiratory failure with hypoxia, on home O2 therapy ([facility]) TAKE 1 TABLET BY MOUTH EVERY [...] has been notified of the message. Maria sIabel states that she just received the script for Prednisone 10MG for Jer Abreu from [facility]. * Telephone Encounter - Ligia Dewitt LPN - 09/19/2020 10:12 AM EDT Called patient received voiced mail. Left message to return call * Telephone Encounter - Kavya Dillard CRNP - 09/18/2020 3:44 PM EDT Per the pulmonary notes from [facility] at [facility] he was only supposed to take the prednisone for aflare up of COPD which is why I recommended he discontinue the prednisone. He does not have to taper off of 10 mg ... can just stop. Randy, AMBER, GARRETT [facility] * Telephone Encounter - Sayra Carvalho LPN - 09/18/2020 1:23 PM EDT Pt wanted to know who Victor ManuelJosé Miguel Gilma works for, which office Advised that she is in the office, Family Practice He states that he will follow up with his Frit Mixer then * Telephone Encounter - Mayra Tran LPN - 09/18/2020 1:21 PM EDT Pt returning call, advised of message below. Voiced understanding. No further questions at this time. * Telephone Encounter - Ligia Dewitt LPN - 09/18/2020 8:40 AM EDT Called patient received voiced mail. Left message to return call To [phone] * Telephone Encounter - Kavya Dillard CRNP - 09/18/2020 7:18 AM EDT Noted. Recommend discontinue prednisone. Randy, AMBER, GARRETT [facility] * Telephone Encounter - Jamila Drummond OSA [...] Request pending Thank You, Elvi Ortez Cpht Roadway Engineer Rm Telepharmacy 09/16/2020, 9:08 AM * Telephone Encounter - Ragini Chao CPhT - 09/16/2020 7:55 AM EDT Patients daughter requesting refills for prednisone 10mg. Upon chart review, medication is listed as discontinued, with discontinuation reason as "refill". Please advise if you wish to continue this therapy for the patient. Pt needs refill ordered today he is out of medication Thanks, Ragini Chao Roadway Engineer II Pharmacy Refill Call Center 17:56 AM documented in this encounter Plan of Treatment Upcoming Encounters Date Type Specialty Care Team Description 09/23/2020 Office Visit Family Medicine [facility] [address] [phone] 09/24/2020 Pharmacy Burial Vault Setter, [facility] [address] [facility] [address] [phone] 08/05/2021 Pharmacy Burial Vault Setter, Pharmacy Reimbursement [address] [place] [facility] [place] [address] [phone] Health Maintenance Due Date Last Done Comments Zoster Vaccines (1 of 2) 1992 LUNG CANCER SCREENING YEARLY-USE SMARTSET 25523 06/23/2018 06/23/2017 Influenza Vaccine (FLU shot) (#1) [...] Documents on File Type Date Recorded Patient Inspector Rag Sorting 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 Advanced Directive Advanced Directive Advanced Directive Advanced Directive Advanced Directive Advanced Directive Advanced Directive Advanced Directive Advanced Directive Advanced Directive Advanced Directive
--- OUTSIDE RECORDS SUMMARY | 2023-04-08 23:16 | External Medical Summary | Summary of Care ---
Author Name Unknown Organization [place] [address] Care Team Providers Care Web Production Artist Name Role Phone Alan Meyers MD Primary Care Provide r Reason for Visit * Reason Onset Date Comments Medication Refill 09/16/2020 Encounter Details Date Type Department Care Team Description 09/16/2020 Telephone Family Practice [address] [place] [address] Alan Meyers MD [address] [place] [address] [place] [address] Medication Refill Allergies No Known [...] :Stage 3 severe COPD by GOLD classification ([facility]) Inhale 1 Ampule via nebulizer 3 times a day. 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 Diagnosis code J96.11 Chronic Resp Failure with hypoxia on home oxygen therapy. 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 Voiced understanding. No further questions at this time. * Telephone Encounter - Ligia Dewitt LPN - 09/18/2020 8:40 AM EDT Called patient received voiced mail. Left message to return call To [phone] * Telephone Encounter - Kavya Dillard CRNP - 09/18/2020 7:18 AM EDT Noted. Recommend discontinue prednisone. Randy, AMBER, GARRETT [facility] * Telephone Encounter - Jamila Drummond OSA [...] Request pending Thank You, Elvi Ortez Cpht Piece Jobber [facility] Telepharmacy 09/16/2020, 9:08 AM * Telephone Encounter - Ragini Chao CPhT - 09/16/2020 7:55 AM EDT Patients daughter requesting refills for prednisone 10mg. Upon chart review, medication is listed as discontinued, with discontinuation reason as "refill". Please advise if you wish to continue this therapy for the patient. Pt needs refill ordered today he is out of medication ThanksRagini Piece Jobber II Pharmacy Refill Call Center 17:56 AM documented in this encounter Plan of Treatment Upcoming Encounters Date Type Specialty Care Team Description 09/23/2020 Office Visit Family Medicine Kavya Dillard CRNP [address] [facility] [place] [address] [phone] 09/24/2020 Pharmacy [place], Pharmacy Reimbursement [address] [place], [place] [address] 08/05/2021 Pharmacy [place], Pharmacy Reimbursement [address] [place] [address] [phone] Health Maintenance Due Date Last Done Comments Zoster Vaccines (1 of 2) 1992 LUNG CANCER SCREENING YEARLY-USE SMARTSET 46611 06/23/2018 06/23/2017 Influenza Vaccine (FLU shot) (#1) [...] on File Type Date Recorded 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
--- OUTSIDE RECORDS SUMMARY | 2023-04-08 23:16 | External Medical Summary | Summary of Care ---
Author Name Unknown Organization [place] [address] Care Team Providers Care Phonograph Mechanic Name Role Phone Alan eMyers MD Primary Care Provide r Reason for Visit * Reason Onset Date Comments Medication Refill 09/16/2020 Encounter Details Date Type Department Care Team Description 09/16/2020 Telephone Family Practice [address] [place] [address] Alan Meyers MD [address] [place] [address] [place] [address] Medication Refill Allergies No Known [...] by GOLD classification ([facility]) Inhale 1 Ampule via nebulizer 3 times a day. Diagnosis code J44.9 Stage 3 Sever COPD by Gold classification [facility]. Diagnosis code J96.11 Chronic Resp Failure with hypoxia on home oxygen therapy. 270 mL 4 07/25/2020 Active Ipratropium [place] 0.02 % Inhalation Solution (Atrovent)Indication s:Stage 3 [...] the pulmonary notes from Remington Dodson at [facility] he was only supposed to take the prednisone for aflare up of COPD which is why I recommended he discontinue the prednisone. He does not have to taper off of 10 mg ... can just stop. Randy, MSN, GARRETT [facility] * Telephone Encounter - Sayra Carvalho LPN - 09/18/2020 1:23 PM EDT Pt wanted to know who Wicho Dillard works for, which office Advised that she is in the office, Family Practice He states that he will follow up with his Apiculture Teacher then * Telephone Encounter - Mayra Tran LPN - 09/18/2020 1:21 PM EDT Pt returning call, advised of message below. Voiced understanding. No further questions at this time. * Telephone Encounter - Ligia Dewitt LPN - 09/18/2020 8:40 AM EDT Called patient received voiced mail. Left message to return call To [phone] * Telephone Encounter - Kavya Dillard CRNP - 09/18/2020 7:18 AM EDT Noted. Recommend discontinue prednisone. Randy, AMBER, GARRETT [facility] * Telephone Encounter - Jamila Drummond [...] mail. Request pending Thank You, Elvi Ortez [facility] Director Of Pupil Personnel Program [facility] 09/16/2020, 9:08 AM * Telephone Encounter - Ragini Chao CPhT - 09/16/2020 7:55 AM EDT Patients daughter requesting refills for prednisone 10mg. Upon chart review, medication is listed as discontinued, with discontinuation reason as "refill". Please advise if you wish to continue this therapy for the patient. Pt needs refill ordered today he is out of medication ThanksRagini Director Of Pupil Personnel Program II Pharmacy Refill Call Center 17:56 AM documented in this encounter Plan of Treatment Upcoming Encounters Date Type Specialty Care Team Description 09/23/2020 Office Visit Family Medicine Kavya Dillard CRNP [address] [place] [address] [phone] 09/24/2020 Pharmacy Maid Cleaning Cooking, Pharmacy Reimbursement [address] [place] [address] [phone] 08/05/2021 Pharmacy Maid Cleaning Cooking, Pharmacy Reimbursement [address] [place] [address] [phone] Health Maintenance Due Date Last Done Comments Zoster Vaccines (1 of 2) 1992 LUNG CANCER SCREENING YEARLY-USE SMARTSET 89971 06/23/2018 06/23/2017 Influenza Vaccine (FLU shot) (#1) [...] Documents on File Type Date Recorded 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
--- OUTSIDE RECORDS SUMMARY | 2023-04-08 23:16 | External Medical Summary | Summary of Care ---
Author Name Unknown Organization [place] [address] Care Team Providers Care Estimator And Drafter Supervisor Name Role Phone Alan Meyers MD Primary Care Provide r Reason for Visit * Reason Onset Date Comments Advice 08/22/2020 Encounter Details Date Type Department Care Team Description 08/22/2020 [address]phone [address] [address] Alan Meyers MD [address] [place] [address] [place] [address] Advice Allergies [...] therapy. 270 mL 4 1 Active Ipratropium [place] 0.02 % Inhalation Solution (Atrovent)Indicatio ns:Stage 3 [...] encounter Miscellaneous Notes * Telephone Encounter - Marsha Mesa OSA - 08/22/2020 3:47 PM EDT [...] advise, thanks. Callback - patient's son Jer: [phone] documented in this encounter Plan of Treatment Upcoming Encounters Date Type Specialty Care Team Description 08/30/2020 Pharmacy Electric Detector Operator, Pharmacy Reimbursement [address] [place] [facility] [place] [address] [phone] 09/23/2020 Office Visit Family Medicine Gilma, GARRETT Brit[place] [address] [place] [address] [phone] 08/05/2021 Pharmacy Electric Detector Operator, Pharmacy Reimbursement [address] [place] [address] [phone] Health Maintenance Due Date Last Done Comments Zoster Vaccines (1 of 2) 1992 LUNG CANCER SCREENING YEARLY-USE SMARTSET 71596 06/23/2018 06/23/2017 Influenza Vaccine (FLU shot) (#1) [...] Documents on File Type Date Recorded Patient Music Therapy Specialist 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 Advanced Directive Advanced Directive Advanced Directive Advanced Directive Advanced Directive Advanced Directive Advanced Directive Advanced Directive Advanced Directive Advanced Directive
--- OUTSIDE RECORDS SUMMARY | 2023-04-08 23:16 | External Medical Summary | Summary of Care ---
Author Name Unknown Organization [place] [address] Care Team Providers Care Per Diem Clerk Name Role Phone Alan Meyers MD Primary Care Provide r Reason for Visit * Reason Onset Date Comments Medication Refill 09/16/2020 FYI 09/19/2020 Encounter Details Date Type Department Care Team Description 09/16/2020 Telephone Family Practice [facility] [address] [place] [address] Alan Meyers MD [address] [place] [id number] Medication Refill; FYI Allergies No Known [...] classification ([facility]) Inhale 1 Ampule via nebulizer 3 times a day. Diagnosis code J44.9 Stage 3 Sever COPD by Gold classification [facility]. Diagnosis code J96.11 Chronic Resp Failure with hypoxia on home oxygen therapy. 270 mL 4 07/25/2020 Active Ipratropium [place] 0.02 % Inhalation Solution (Atrovent)Indication s:Stage 3 [...] Howe OSA - 09/19/2020 10:40 AM EDT Patient's daughter has been notified of the message. Maria Isabel states that she just received the script for Prednisone 10MG from [facility]. * Telephone Encounter - Ligia Dewitt LPN - 09/19/2020 10:12 AM EDT Called patient received voiced mail. Left message to return call * Telephone Encounter - Kavya Dillard CRNP - 09/18/2020 3:44 PM EDT Per the pulmonary notes from [facility] at [facility] he was only supposed to take the prednisone for aflare up of COPD which is why I recommended he discontinue the prednisone. He does not have to taper off of 10 mg ... can just stop. Randy, AMBER, GARRETT [facility][note 3] * Telephone Encounter - Sayra Carvalho LPN - 09/18/2020 1:23 PM EDT Pt wanted to know who BaronJosé Miguel Gilma works for, which office Advised that she is in the office, Family Practice He states that he will follow up with his Face Burler then * Telephone Encounter - Mayra Tran LPN - 09/18/2020 1:21 PM EDT Pt returning call, advised of message below. Voiced understanding. No further questions at this time. * Telephone Encounter - Ligia Dewitt LPN - 09/18/2020 8:40 AM EDT Called patient received voiced mail. Left message to return call To [phone] * Telephone Encounter - Kavya Dillard CRNP - 09/18/2020 7:18 AM EDT Noted. Recommend discontinue prednisone. Randy, AMBER, GARRETT [facility][note 3] * Telephone Encounter - Jamila Drummond OSA [...] Request pending Thank You, Elvi Ortez Cpht Benefits Clerk Rm Telepharmacy 09/16/2020, 9:08 AM * Telephone Encounter - Ragini Chao CPhT - 09/16/2020 7:55 AM EDT Patients daughter requesting refills for prednisone 10mg. Upon chart review, medication is listed as discontinued, with discontinuation reason as "refill". Please advise if you wish to continue this therapy for the patient. Pt needs refill ordered today he is out of medication Thanks, Ragini Chao Benefits Clerk II Pharmacy Refill Call Center 17:56 AM documented in this encounter Plan of Treatment Upcoming Encounters Date Type Specialty Care Team Description 09/23/2020 Office Visit Family [facility] [address] [facility] [address] [phone] 09/24/2020 Pharmacy Tower Equipment Repairer, [facility]urse[facility] [address] [facility] [place] [address] [phone] 08/05/2021 Pharmacy Tower Equipment Repairer, Pharm[facility] Reimbursement [address] [facility] [place] [address] [phone] Health Maintenance Due Date Last Done Comments Zoster Vaccines (1 of 2) 1992 LUNG CANCER SCREENING YEARLY-USE SMARTSET 46716 06/23/2018 06/23/2017 Influenza Vaccine (FLU shot) (#1) [...] on File Type Date Recorded Patient Medical Assisting Instructor 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 Advanced Directive Advanced Directive Advanced Directive Advanced Directive Advanced Directive Advanced Directive Advanced Directive Advanced Directive Advanced Directive Advanced Directive Advanced Directive
--- OUTSIDE RECORDS SUMMARY | 2023-04-08 23:17 | External Medical Summary | Summary of Care ---
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 Pt c/o sinus inf sx. Pt has O2 intact via nasal cannula, Pulse ox 88%. Pt arrived to appt in w/c with daughter accompanied. Encounter Details Date Type Department Care Team Description 07/11/2020 Office Visit Family [facility] [address] [facility] [place] [address] Alan Meyers MD [address] 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 0 04/29/2017 Active oxygen GASIndications:Inc to 4LPM with ambulation/exertion Use 2 L/min(Oxygen) as directed continuous. Indications: Inc to 4LPM with ambulation/exerti on 0 04/28/2017 Active acetaminophen (TYLENOL) 500 MG [...] For heartburn 60 Tab 5 06/01/2018 Active ipratropium (ATROVENT) 0.02 % nebulizer solutionIndications: Stage 3 severe COPD by GOLD classification ([facility]) Inhale 2.5 mL via nebulizer 3 times a day. 270 mL 4 12/13/2019 Active levalbuterol (XOPENEX) 1.25 MG/3ML nebulizer solutionIndications: Stage 3 severe COPD by GOLD classification ([facility]) Inhale 1 Ampule via nebulizer 3 times a day. 270 mL 4 12/13/2019 Active Folic Acid 1 MG Oral TabletIndications:Ch ronic respiratory failure with hypoxia, on home O2 therapy ([facility]) Take 1 Tab by mouth daily. 90 Tab 1 03/26/2020 Active predniSONE 10 MG Oral Tablet (DELTASONE)Indicatio [...] or Wheezing. 54 g 3 06/11/2020 Active Fluticasone-Salmeter ol 250-50 MCG/DOSE Inhalation Aerosol Powder Breath Activated (Advair Diskus)Indications:S OB (shortness of breath) Inhale 1 Puff by mouth 2 times a day. Brand necessary 3 Each 3 06/11/2020 Active Doxycycline Hyclate 100 MG Oral Capsule Take 1 Cap by mouth 2 times a day for 10 days. Until gone. 20 Cap 0 07/11/2020 1 Active predniSONE 10 MG Oral Tablet (Deltasone) Take 5 tabs for 2 days, 4 tabs for 2 days, 3 tabs for 2 days, 2 tabs for 2 days 1 tab for 2 days 30 Tab 0 07/11/2020 Active predniSONE (DELTASONE) 20 MG Tablet TAKE 2 TABLETS A DAY FOR 5 DAYS, THEN 1 TABLET A DAY FOR 5 DAYS 15 Tab 0 01/23/2020 1 Discontinue d(Patient preference/ discontinua tion) Amoxicillin-Pot Clavulanate 875-125 MG Oral TabletIndications:CO PD exacerbation (HCC) Take 1 Tab by mouth every 12 hours. 20 Tab 1 05/27/2020 1 Discontinue d(Patient preference/ discontinua tion) documented as of this encounter (statuses as of 07/11/2020) Active Problems Problem Noted Date Chronic respiratory failure with hypoxia , on home O2 therapy 12/03/2017 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 documented as of this encounter (statuses as of 07/11/2020) Resolved Problems Problem Noted Date Resolved Date [...] as of this encounter (statuses as of 07/11/2020) Immunizations Name Administration Dates Next Due PPD [...] Sign Reading Time Taken Comments Blood Pressure 104/56 07/11/2020 3:03 PM EST Pulse 124 07/11/2020 3:03 PM EST Temperature 37.2 C (99 F) 07/11/2020 3:03 PM EST Respiratory Rate 24 07/11/2020 3:03 PM EST Oxygen Saturation 88% 07/11/2020 3:03 PM EST Inhaled Oxygen Concentration - - Weight - - Height - - Body Mass Index - - documented in this encounter Progress Notes * Alan Meyers MD - 07/11/2020 4:15 PM EST 07/11/2020 Author: Alan Meyers MD Assessment/Plan Medications Discontinued During This Encounter Medication Reason predniSONE (DELTASONE) 20 MG Tablet Patient preference/discontinuation Amoxicillin-Pot Clavulanate 875-125 MG Oral Tablet Patient preference/discontinuation Pt is a 79 year old male here for the following problems/concerns: (J44.1) COPD exacerbation (HCC) (primary encounter diagnosis) Plan: doxy and pred Pt declined cxr Pt declines all immunizations (J44.9) Stage 3 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 All questions answered. CC/HPI: Jer Abreu Jr. is a 79 year old male Chief Complaint Patient presents with Follow Up Pt here for f/u Sinus Problem green nasal drg present per pt. Pt c/o sinus inf sx. Pt has O2 intact via nasal cannula, Pulse ox 88%. Pt arrived to [facility] in w/c with daughter accompanied. Brief Clinical History Mr. Abreu is a 79 year old man last seen in Family Medicine 6 months ago (12-18-19). He is due for eval of Chronic respiratory failure with hypoxia, on home O2 therapy ([facility]) and Stage 3 severe COPD byGOLD classification ([facility]). Nursing Notes: Marcy De La Rosa LPN 07/11/20 1507 Signed The patient has been properly identified by confirmation of name and date of . Chief Complaint Patient presents with Follow Up Pt here for f/u Sinus Problem green nasal drg present per pt. Pt c/o sinus inf sx. Marcy De La Rosa, LARISA 07/11/20 1511 Signed The patient has been properly identified by confirmation of name and date of . Chief Complaint Patient presents with Follow Up Pt here for f/u Sinus Problem green nasal drg present per pt. Pt c/o sinus inf sx. Pt has O2 intact via nasal cannula, Pulse ox 88%. Pt arrived to [facility] in w/c with daughter accompanied. 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 ([facility]) J44.9 Oxygen dependent Z99.81 Chronic respiratory failure with hypoxia, on home O2 therapy ([facility]) J96.11, Z99.81 Gastroesophageal reflux disease with esophagitis K21.00 Past Medical History: Past Medical History: Diagnosis Date Acute exacerbation of COPD with asthma ([facility]) 04/23/2017 [facility] Edentulous Gastroesophageal reflux disease with esophagitis Herpes zoster 01/11/2019 right neck and scalp Inflammation of sacroiliac joint ([facility]) 04/24/05 Loss of teeth due to trauma, extraction, or periodontal disease Other abnormal glucose 04/23/05 glucose 156 Other abnormal glucose 02/22/08 glucose 167 Other disorders of vitreous 12/05 Posterior vitreous detachment OS Other specified disorders of rotator cuff syndrome of shoulder and allied disorders 05/10 right shoulder Pneumonia 06/13/2017 left basal infiltrate Pneumonia due to Pseudomonas ([facility]) 05/20/2017 Severe chronic obstructive pulmonary disease ([facility]) 10/28/2016 severe by ATS criteria. significant response after bronchodilator TICK BITE RIGHT FOOT 02/2005 Tobacco use disorder Past Surgical History: Past Surgical History: Procedure Laterality Date CT CHEST W CONTRAST 06/20/2017 emphysematous change with scattered interstitial and parenchymal fibrosis, superimposed infiltrative /nodular process left base CTA CHEST NON-CORONARY W CONTRAST 04/23/2017 no PE small focal consolidation in LLL, likely pneumonia ECHO, COMPLETE (2D), TRANS-THORACIC 04/23/2017 normal LV size and function, EF 55-60% REMOVE CATARACT, INSERT LENS PROSTH Right 06/12/2019 [facility] REMOVE CATARACT, INSERT LENS PROSTH Left 06/26/2019 [facility] Medication List: Current Outpatient Medications Medication Sig Dispense Refill Doxycycline Hyclate 100 MG Oral Capsule Take 1 Cap by mouth 2 times a day for 10 days. Until gone. 20 Cap 0 predniSONE 10 MG Oral Tablet (Deltasone) Take 5 tabs for 2 days, 4 tabs for 2 days, 3 tabs for 2 days, 2 tabs for 2 days 1 tab for 2 days 30 Tab 0 predniSONE 10 MG Oral Tablet (DELTASONE) One daily with food 90 Tab 1 Folic Acid 1 MG Oral Tablet Take 1 Tab by mouth daily. 90 Tab 1 famotidine (PEPCID AC) 10 MG Tablet Take 1 Tab by mouth 2 times a day. For heartburn 60 Tab 5 roflumilast (DALIRESP) 500 MCG Tablet Take 500 mcg by mouth daily. Multiple Vitamins-Minerals (MULTIVITAMIN ADULTS) TABS Take by mouth daily. oxygen GAS Use 2 L/min(Oxygen) as directed continuous. Indications: Inc to 4LPM with ambulation/exertion THIAMINE (VITAMIN B-1) 100 MG Tablet Take 100 mg by mouth daily. Albuterol Sulfate HFA 108 (90 Base) MCG/ACT Inhalation Aerosol Solution Inhale 2 Puffs by mouth every 4 hours as needed for Shortness of Breath or Wheezing. 54 g 3 Fluticasone-Salmeterol 250-50 MCG/DOSE Inhalation Aerosol Powder Breath Activated (Advair Diskus) Inhale 1 Puff by mouth 2 times a day. Brand necessary 3 Each 3 predniSONE 10 MG Oral Tablet (DELTASONE) Take 5 tabs for 2 days, 4 tabs for 2 days, 3 tabs for 2 days, 2 tabs for 2 days 1 tab for 2 days (Patient not taking: Reported on 07/11/2020) 30 Tab 1 ipratropium (ATROVENT) 0.02 % nebulizer solution Inhale 2.5 mL via nebulizer 3 times a day. 270 mL 4 levalbuterol (XOPENEX) 1.25 MG/3ML nebulizer solution Inhale 1 Ampule via nebulizer 3 times a day. 270 mL 4 acetaminophen (TYLENOL) 500 MG Tablet Take 500 mg by mouth every 4 hours as needed for Pain. hydrocortisone acetate (ANUSOL-HC) 25 MG suppository Administer 25 mg into the rectum 2 times a dayas needed for Hemorrhoids. Allergies: Patient has no known allergies. Problem list, Past Medical History, Family history and social history reviewed and updated in [facility] EHR ROS: No nausea, vomiting or diarrhea. No chest pain or shortness of breath, No fatigue. No fevers, chillor night sweats. All other ROS examined in detail and are negative except as documented in HPI. Vitals: BP 104/56 (BP Site: Left Arm, BP Position: Sitting, BP Cuff Size: Regular) | Pulse 124 | Temp 37.2 C (99 F) (Tympanic) | Resp 24 | SpO2 88% There is no height or weight on file to calculate BMI. Exam: General: alert, healthy and no distress Head: Normocephalic, No masses, lesions, tenderness or abnormalities Heart: regular rate & rhythm, no murmurs and no gallops Lungs: scattered wheezes Abdomen: abdomen soft, non-tender, no masses, no hepatosplenomegaly, no rebound or guarding Extremities: no edema, no clubbing, no cyanosis Assessment and plan located at the top of the page documented in this encounter Nursing Notes * Marcy De La Rosa LPN - 07/11/2020 3:10 PM EST The patient has been properly identified by confirmation of name and date of . Chief Complaint Patient presents with Follow Up Pt here for f/u Sinus Problem green nasal drg present per pt. Pt c/o sinus inf sx. Pt has O2 intact via nasal cannula, Pulse ox 88%. [facility] accompanied. * Marcy De La Rosa LPN - 07/11/2020 3:02 PM EST The patient has been properly identified by confirmation of name and date of . Chief Complaint Patient presents with Follow Up Pt here for f/u Sinus Problem green nasal drg present per pt. Pt c/o sinus inf sx. 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
--- OUTSIDE RECORDS SUMMARY | 2023-04-08 23:17 | External Medical Summary | Summary of Care ---
Author Name Unknown Organization [place] [address] Care Team Providers Care Salvage Engineering Technician Name Role Phone Alan Meyers MD Primary Care Provide r Reason for Visit * Reason Onset Date Comments Advice 07/10/2020 Encounter Details Date Type Department Care Team Description 07/10/2020 Telephone Family Practice [facility] [address] [facility] [place] [address] Alan Meyers MD [address] [facility] [place] [address] [phone] Advice Allergies No Known Active Allergiesdocumented as of this encounter (statuses as of 07/10/2020) Medications Medication Sig Dispensed Refills Start Date End Date Status THIAMINE (VITAMIN B-1) 100 MG Tablet Take 100 mg by mouth daily. 0 04/29/2017 Active oxygen GASIndications:Inc to 4LPM with ambulation/exertion Use 2 L/min(Oxygen) as directed continuous. Indications: Inc to 4LPM with ambulation/exertio n 0 04/28/2017 Active acetaminophen (TYLENOL) 500 MG [...] 0 Active famotidine (PEPCID AC) 10 MG TabletIndications:Sharif roesophageal reflux disease with esophagitis Take 1 Tab by mouth 2 times a day. For heartburn 60 Tab 5 06/01/2018 Active ipratropium (ATROVENT) 0.02 % nebulizer solutionIndications:St age 3 severe COPD by GOLD classification ([facility]) Inhale 2.5 mL via nebulizer 3 times a day. 270 mL 4 12/13/2019 Active levalbuterol (XOPENEX) 1.25 MG/3ML nebulizer solutionIndications:St age 3 severe COPD by GOLD classification ([facility]) Inhale 1 Ampule via nebulizer 3 times a day. 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 90 Tab 1 03/26/2020 Active Amoxicillin-Pot Clavulanate 875-125 MG Oral TabletIndications:COPD exacerbation (HCC) Take 1 Tab by mouth every 12 hours. 20 Tab 1 05/27/2020 Active predniSONE 10 MG Oral Tablet (DELTASONE)Indications :COPD exacerbation (HCC) Take 5 tabs for 2 days, 4 tabs for 2 days, 3 tabs for 2 days, 2 tabs for 2 days 1 tab for 2 days 30 Tab 1 05/27/2020 Active predniSONE 10 MG Oral Tablet (DELTASONE)Indications :Severe chronic obstructive pulmonary disease (HCC) One daily with food 90 Tab 1 06/10/2020 Active Albuterol Sulfate HFA 108 (90 Base) MCG/ACT Inhalation Aerosol SolutionIndications:SO B (shortness of breath) Inhale 2 Puffs by mouth every 4 hours as needed for Shortness of Breath or Wheezing. 54 g 3 06/11/2020 Active Fluticasone-Salmeterol 250-50 MCG/DOSE Inhalation Aerosol Powder Breath Activated (Advair Diskus)Indications:SOB (shortness of breath) Inhale 1 Puff by mouth 2 times a day. Brand necessary 3 Each 3 06/11/2020 Active documented as of this encounter (statuses as of 07/10/2020) Active Problems Problem Noted Date Chronic respiratory failure with hypoxia , on home O2 therapy 12/03/2017 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 documented as of this encounter (statuses as of 07/10/2020) Resolved Problems Problem Noted Date Resolved Date [...] as of this encounter (statuses as of 07/10/2020) Immunizations Name Administration Dates Next Due PPD [...] Assigned at Date Recorded Not on file documented as of this encounter Miscellaneous Notes * Telephone Encounter - Leigh Ann Virk LPN - 07/10/2020 2:43 PM EST Pt is scheduled, refused ER * Telephone Encounter - Alan Meyers MD - 07/10/2020 2:33 PM EST Can schedule with me or jeannine If sx's worsen, ED * Telephone Encounter - Jackelyn Charlton LPN - 07/10/2020 1:56 PM EST Called patient's daughter in law, she stated pt is refusing ER, she is asking if she can bring him back to the office for another evaluation. * Telephone Encounter - Alan Meyers MD - 07/10/2020 1:51 PM EST D/t mental status changes, suggest ED evaluation * Telephone Encounter - Susan Peng OSA - 07/10/2020 8:26 AM EST Pt's daughter in law Maria Isabel Abreu calling to advise amoxicillin medication that Pt is currently on is doing nothing for the chest infection. He continues to cough up green mucous and is now having episodes of confusion and forgetfulness. Please advise, . documented in this encounter Plan of Treatment Upcoming Encounters Date Type Specialty Care Team Description 07/11/2020 Office Visit Family Medicine Alan Meyers MD [address] [facility] [place] [address] [phone] 08/05/2020 Pharmacy Resolution Rep, Pharmacy Reimbursement [address] [facility] [place] [address] Health Maintenance Due Date Last Done Comments Zoster Vaccines (1 of 2) 1992 LUNG CANCER SCREENING YEARLY-USE SMARTSET 91515 06/23/2018 06/23/2017 Influenza Vaccine (FLU shot) (#1) [...] Documents on File Type Date Recorded Patient Instrumentation Manager 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 Advanced Directive Advanced Directive Advanced Directive Advanced Directive
--- OUTSIDE RECORDS SUMMARY | 2023-04-08 23:17 | External Medical Summary | Summary of Care ---
Author Name Unknown Organization [place] [address] Care Team Providers Care Cert Pharmacy Tech Name Role Phone Alan Meyers MD Primary Care Provide r Reason for Visit * Reason Comments Patient Assistance Program Encounter Details Date Type Department Care Team Description 08/05/2020 Pharmacy Pharmacy, [place] [address] [place] [address] Coordinator, Pharmacy [facility] [address] [place] [address] [phone] COPD, severe (HCC)* Allergies No Known Active Allergiesdocumented as of this encounter (statuses as of 08/01/2020) Medications Medication Sig Dispensed Refills Start Date [...] For heartburn 60 Tab 5 06/01/2018 Active documented as of this encounter (statuses as of 08/01/2020) Active Problems Problem Noted Date Chronic respiratory failure with hypoxia , on home O2 therapy 12/03/2017 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 documented as of this encounter (statuses as of 08/01/2020) Resolved Problems Problem Noted Date Resolved Date [...] as of this encounter (statuses as of 08/01/2020) Immunizations Name Administration Dates Next Due PPD [...] Progress Notes * Jackelyn Shelton OSA - 07/26/2020 11:46 AM EST Application to be mailed to Son's address [address] [place] [address], [place] [address] [employer]AH [employer] Account Assistant 07/26/2020, 11:47 AM * Chele Gallardo OSA - 10/05/2019 11:03 AM EDT Patient needs re-enrolled: Company: [employer], [employer], [employer] RX: Advair Diskus, Daliresp, Proair HFA Provider: Mira The patient was mailed forms TBD to sign and mail back to [facility] office with proof of income. Once the forms are received in the [facility] office, the forms will be forwarded to the prescribing provider for a signature and submission to the appropriate pharmaceutical company. If the patient is approved for a PAP program, the free medication should arrive in approximately thirty (30) days. Forms mailed to patient TBD Follow up patient: TBD Please send re-enrollment apps to philip Sanchez and JAH Pitts [employer] Account Assistant 10/05/2019, 11:04 AM Completed [employer] application for Advair Diskus and Ventolin HFA was received on 08/01/2020. The documents were forwarded to Alan Meyers MD to sign and submit to the company. If the patient is approved by the program, a 90 day supply of this medication should arrive at [address] [facility] [address] in approximately 30 days. Follow up [employer] 2 weeks 08/19/2020 JAH Manriquez [employer] Account Assistant 08/01/2020, 1:47 PM [facility] mailed [employer] re-enrollment application to patient at son's address. JAH [employer] Account Assistant 08/01/2020, 2:05 PM documented in this encounter Plan of Treatment Upcoming Encounters Date Type Specialty Care Team Description 08/19/2020 Pharmacy [employer] Consultant, Pharmacy Reimbursement [address] [place] [address] [phone] Health Maintenance Due Date Last Done Comments Zoster Vaccines (1 of 2) 1992 LUNG CANCER SCREENING YEARLY-USE SMARTSET 71230 06/23/2018 06/23/2017 Influenza Vaccine (FLU shot) (#1) [...] Documents on File Type Date Recorded Patient Adult Psychiatrist 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 Advanced Directive Advanced Directive Advanced Directive Advanced Directive Advanced Directive
--- OUTSIDE RECORDS SUMMARY | 2023-04-08 23:17 | External Medical Summary | Summary of Care ---
Author Name Unknown Organization [place] [address] Care Team Providers Care Manager Of Compliance Name Role Phone Alan Rod MD Primary Care Provide r Reason for Visit * Reason Onset Date Comments Medication Refill 08/06/2020 Patient asssis tance program Encounter Details Date Type Department Care Team Description 08/06/2020 Refill Family Practice [address] [address] Alan Rod MD [address] [place] [id number] SOB (shortness of breath) Allergies No Known Active Allergiesdocumented as of this encounter (statuses as of 08/06/2020) Medications Medication Sig Dispensed Refills Start Date [...] 06/01/2018 Active predniSONE 10 MG Oral Tablet (DELTASONE)Indicati ons:COPD exacerbation (HCC) Take 5 tabs for 2 days, 4 tabs for 2 days, 3 tabs for 2 days, 2 tabs for 2 days 1 tab for 2 days 30 Tab 1 05/27/2020 Active Additional Information Patient not taking. Reported on 07/11/2020 predniSONE 10 MG Oral Tablet (DELTASONE)Indicati ons:Severe [...] therapy. 270 mL 4 07/25/2020 Active Ipratropium [place] 0.02 % Inhalation Solution (Atrovent)Indicatio ns:Stage 3 [...] day. 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 * Telephone Encounter - Alan Rod MD - 08/06/2020 3:06 PM EST Signed Prescriptions: Disp Refills Fluticasone-Salmeterol 250-50 MCG/DOSE Inh*3 Each 3 Sig: Inhale 1 Puff by mouth 2 times a day. Brand necessary Authorizing Provider: ALAN ROD Ventolin HFA 108 (90 Base) MCG/ACT Inhalat*54 g 3 Sig: Inhale 2 Puffs by mouth every 4 hours as needed for Wheezing. Brand necessary Authorizing Provider: ALAN ROD * Telephone Encounter - Kezia Erazo LPN - 08/06/2020 2:53 PM EST Paperwork received for pharmacy reimbursement plan requires hard copy of prescriptions to be faxed with patient forms. Orders pended. Both must be brand necessary. Please sign if agreeable. documented in this encounter Plan of Treatment Upcoming Encounters Date Type Specialty Care Team Description 08/19/2020 Pharmacy Gmat Tutor, Pharmacy Reimbursement [address] [place] [address] Health Maintenance Due Date Last Done Comments Zoster Vaccines (1 of 2) 1992 LUNG CANCER SCREENING YEARLY-USE SMARTSET [address]1055 06/23/2018 06/23/2017 Influenza Vaccine (FLU shot) (#1) [...] Documents on File Type Date Recorded Patient Senior Site Manager 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 Advanced Directive Advanced Directive Advanced Directive Advanced Directive Advanced Directive
--- OUTSIDE RECORDS SUMMARY | 2023-04-08 23:17 | External Medical Summary | Summary of Care ---
Author Name Unknown Organization [place] [address] Care Team Providers Care Artillery Meteorological Man Name Role Phone Alan Rod MD Primary Care Provide r Reason for Referral * Medication Prior Authorization (Routine) Status Reason Specialty Diagnoses / Procedures Re ferred By Contact Referred To Contact Denied Diagnoses Stage 3 severe COPD by GOLD classification ([facility]) Alan Rod MD [address] [place] [phone] Electronically signed by Alan Rod MD at Reason for Visit * Reason Onset Date Comments Medication Refill 07/25/2020 Medication Refill 08/07/2020 Encounter Details Date Type Department Care Team Description 07/25/2020 Refill Family Practice [address] [address] Marcy De La Rosa LPN Stage 3 severe COPD by GOLD classification ([facility]) Allergies No Known Active Allergiesdocumented as of this encounter (statuses as of 08/07/2020) Medications Medication Sig Dispensed Refills Start Date End Date Status THIAMINE (VITAMIN B-1) 100 MG Tablet Take 100 mg by mouth daily. 0 7 Active oxygen GASIndications:Inc to 4LPM with ambulation/exertio [...] For heartburn 60 Tab 5 8 Active predniSONE 10 MG Oral Tablet (DELTASONE)Indicat ions:COPD exacerbation (HCC) Take 5 tabs for 2 days, 4 tabs for 2 days, 3 tabs for 2 days, 2 tabs for 2 days 1 tab for 2 days 30 Tab 1 0 Active Additional Information Patient not taking. Reported on 07/11/2020 predniSONE 10 MG Oral Tablet (DELTASONE)Indicat ions:Severe chronic obstructive pulmonary disease (HCC) One daily with food 90 Tab 1 1 Active Albuterol Sulfate HFA 108 (90 Base) MCG/ACT Inhalation Aerosol SolutionIndication s:SOB (shortness of breath) Inhale 2 Puffs by mouth every 4 hours as needed for Shortness of Breath or Wheezing. 54 g 3 1 Active predniSONE 10 MG Oral Tablet (Deltasone) Take 5 tabs for 2 days, 4 tabs for 2 days, 3 tabs for 2 days, 2 tabs for 2 days 1 tab for 2 days 30 Tab 0 1 Active Levalbuterol HCl 1.25 MG/3ML Inhalation Nebulization Solution (Xopenex)Indicatio ns:Stage 3 severe COPD by GOLD classification ([facility]) Inhale 1 Ampule via nebulizer 3 times a day. Diagnosis code J44.9 Stage 3 Sever COPD by Gold classification [facility]. Diagnosis code J96.11 Chronic Resp Failure with hypoxia on home oxygen therapy. 270 mL 4 1 Active Ipratropium Steele 0.02 % Inhalation Solution (Atrovent)Indicati ons:Stage 3 severe COPD by GOLD classification ([facility]) Inhale 2.5 mL via nebulizer 3 times a day. Diagnosis code J44.9 Stage 3 Sever COPD by Gold classification [facility]. Diagnosis code J96.11 Chronic Resp Failure with hypoxia on home oxygen therapy. 270 mL 4 1 Active ipratropium (ATROVENT) 0.02 % nebulizer solutionIndication s:Stage 3 severe COPD by GOLD classification ([facility]) Inhale 2.5 mL via nebulizer 3 times a day. 270 mL 4 0 021 Discontinued(Re fill) levalbuterol (XOPENEX) 1.25 MG/3ML nebulizer solutionIndication s:Stage 3 severe COPD by GOLD classification ([facility]) Inhale 1 Ampule via nebulizer 3 times a day. 270 mL 4 0 021 Discontinued(Re fill) Folic Acid 1 MG Oral TabletIndications: Chronic respiratory failure with hypoxia, on home O2 therapy ([facility]) Take 1 Tab by mouth daily. 90 Tab 1 0 021 Discontinued Fluticasone-Salmet umberto 250-50 MCG/DOSE Inhalation Aerosol Powder Breath Activated (Advair Diskus)Indications :SOB (shortness of breath) Inhale 1 Puff by mouth 2 times a day. 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 Diagnosis code J44.9 Stage 3 Sever COPD by Gold classification [facility]. Diagnosis code J96.11 Chronic Resp Failure with hypoxia on home oxygen therapy. Authorizing Provider: ALAN ROD Ipratropium Steele 0.02 % Inhalation Solu*270 mL 4 Sig: Inhale 2.5 mL via nebulizer 3 times a day. Diagnosis code J44.9 Stage 3 Sever COPD by Gold classification HCC. Diagnosis code J96.11 Chronic Resp Failure with hypoxia on home oxygen therapy. Authorizing Provider: ALAN ROD * Telephone Encounter - Alan Rod MD - 07/25/2020 3:36 PM EST Rx sent to [facility]. Please let pt know. * Telephone Encounter - Marcy De La Rosa LPN - 07/25/2020 12:12 PM EST Received fax for Rx refill on pt's Levealbuterol and Atrovent for nebulizer. Refills need diagnosiscode on Rx's for Medicare part D to cover. Rx pended below with Diagnosis codes on script below. Please sign if agreeable. documented in this encounter Plan of Treatment Upcoming Encounters Date Type Specialty Care Team Description 08/19/2020 Pharmacy Video Photographer, Pharmacy Reimbursement [address] [place] [address] Health Maintenance Due Date Last Done Comments Zoster Vaccines (1 of 2) 1992 LUNG CANCER SCREENING YEARLY-USE SMARTSET [address] 06/23/2018 06/23/2017 Influenza Vaccine (FLU shot) (#1) [...] Stage 3 severe COPD by GOLD classification ([facility]) documented in this encounter Advance Directives Documents on File Type Date Recorded Patient Oil Lease Operator 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 Advanced Directive Advanced Directive Advanced Directive Advanced Directive Advanced Directive
--- OUTSIDE RECORDS SUMMARY | 2023-04-08 23:17 | External Medical Summary | Summary of Care ---
Author Name Unknown Organization [place] [address] Care Team Providers Care Assistant To The Vice President Name Role Phone Alan Meyers MD Primary Care Provide r Reason for Visit * Reason Comments Patient Assistance Program Encounter Details Date Type Department Care Team Description 07/01/2020 Pharmacy Pharmacy, [place] [address] [place] [address] Coordinator, Pharmacy [facility] [address] [place], [place] [id number] COPD, severe (HCC)* Allergies No Known Active Allergiesdocumented as of this encounter (statuses as of 07/01/2020) Medications Medication Sig Dispensed Refills Start Date [...] age 3 severe COPD by GOLD classification ([facility]) Inhale 2.5 mL via nebulizer 3 times a day. 270 mL 4 12/13/2019 Active levalbuterol (XOPENEX) 1.25 MG/3ML nebulizer solutionIndications:St age 3 severe COPD by GOLD classification ([facility]) Inhale 1 Ampule via nebulizer 3 times a day. 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 Patient Phone Numbers Coverage: Medicare A and B (No D) Medication:Advair Diskus, Ventolin HFA DIL Maria Isabel WALDEN for [facility] to call back, patient has not received shipment from [facility]. PRC spoke to [employer] rep, Advair Diskus and Ventolin HFA shipped on 06/26/2020. Patient to receive in 7-10 days, PRC spoke to Maria Isabel to make aware. JAH Manriquez [employer] S[employer] Report Developer 07/01/2020, 1:12 PM documented in this encounter Plan of Treatment Upcoming Encounters Date Type Specialty Care Team Description 08/05/2020 Pharmacy [place] [employer] Weaver, Pharmacy Reimbursement [address] [place] [address] [phone] Health Maintenance Due Date Last Done Comments Zoster Vaccines (1 of 2) 1992 LUNG CANCER SCREENING YEARLY-USE SMARTSET 25287 06/23/2018 06/23/2017 Influenza Vaccine (FLU shot) (#1) [...] Documents on File Type Date Recorded Patient Ecological Technical Officer 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 Advanced Directive Advanced Directive Advanced Directive
--- OUTSIDE RECORDS SUMMARY | 2023-04-08 23:17 | External Medical Summary | Summary of Care ---
Author Name Unknown Organization [place] [address] Care Team Providers Care Construction Services Technician Name Role Phone Alan Rod MD Primary Care Provide r Reason for Referral * Medication Prior Authorization (Routine) Status Reason Specialty Diagnoses / Procedures Re ferred By Contact Referred To Contact Pending Review Diagnoses Stage 3 severe COPD by GOLD classification ([facility]) Alan Rod MD [address] [place] [address] Electronically signed by Alan Rod MD at Reason for Visit * Reason Onset Date Comments Medication Refill 07/25/2020 Encounter Details Date Type Department Care Team Description 07/25/[address] [facility] [address] [place] [address] Marcy De La Rosa LPN Stage 3 severe COPD by GOLD classification ([facility]) Allergies No Known Active Allergiesdocumented as of this encounter (statuses as of 07/25/2020) Medications Medication Sig Dispensed Refills Start Date [...] For heartburn 60 Tab 5 06/01/2018 Active Folic Acid 1 MG Oral TabletIndications:C hronic respiratory failure with hypoxia, on home O2 therapy (HCC) Take 1 Tab by mouth daily. 90 Tab 1 03/26/2020 Active predniSONE 10 MG Oral Tablet (DELTASONE)Indicati [...] or Wheezing. 54 g 3 06/11/2020 Active Fluticasone-Salmete rol 250-50 MCG/DOSE Inhalation Aerosol Powder Breath Activated (Advair Diskus)Indications: SOB (shortness of breath) Inhale 1 Puff by mouth 2 times a day. Brand necessary 3 Each 3 06/11/2020 Active predniSONE 10 MG Oral [...] therapy. 270 mL 4 07/25/2020 Active Ipratropium [place] 0.02 % Inhalation Solution (Atrovent)Indicatio ns:Stage 3 severe COPD by GOLD classification ([facility]) Inhale 2.5 mL via nebulizer 3 times a day. Diagnosis code J44.9 Stage 3 Sever COPD by Gold classification [facility]. Diagnosis code J96.11 Chronic Resp Failure with hypoxia on home oxygen therapy. 270 mL 4 07/25/2020 Active ipratropium (ATROVENT) 0.02 % nebulizer solutionIndications :Stage 3 severe COPD by GOLD classification ([facility]) Inhale 2.5 mL via nebulizer 3 times a day. 270 mL 4 12/13/2019 1 Discontinu ed(Refill) levalbuterol (XOPENEX) 1.25 MG/3ML nebulizer solutionIndications :Stage 3 severe COPD by GOLD classification ([facility]) Inhale 1 Ampule via nebulizer 3 times a day. 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 Authorizing Provider: ALAN ROD Ipratropium [place] 0.02 % Inhalation Solu*270 mL 4 Sig: Inhale 2.5 mL via nebulizer 3 times a day. Diagnosis code J44.9 Stage 3 Sever COPD by Gold classification HCC. Diagnosis code J96.11 Chronic Resp Failure with hypoxia on home oxygen therapy. Authorizing Provider: ALAN ROD * Telephone Encounter - Alan Rod MD - 07/25/2020 3:36 PM EST Rx sent to [facility]. Please let pt know. * Telephone Encounter [...] Type Specialty Care Team Description 08/05/2020 Pharmacy Chemical Laboratory Chief, Pharmacy Reimbursement [address] [place] [address] Health Maintenance Due Date Last Done Comments Zoster Vaccines (1 of 2) 1992 LUNG CANCER SCREENING YEARLY-USE SMARTSET 35379 06/23/2018 06/23/2017 Influenza Vaccine (FLU shot) (#1) [...] Documents on File Type Date Recorded Patient Audio Production Instructor 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 Advanced Directive Advanced Directive Advanced Directive Advanced Directive
--- OUTSIDE RECORDS SUMMARY | 2023-04-08 23:17 | External Medical Summary | Summary of Care ---
Author Name Unknown Organization [place] [address] Care Team Providers Care Senior System Operator Name Role Phone Alan Rod MD Primary Care Provide r Reason for Visit * Reason Comments eRx-Medication Refill Encounter Details Date Type Department Care Team Description 07/26/2020 Refill Family Practice [facility] [address] [facility] [place] [address] Alan Rod MD [address] [facility] [place] [address] [phone] Chronic respiratory failure with hypoxia, on home O2 therapy (HCC) Allergies No Known Active Allergiesdocumented as of this encounter (statuses as of 07/29/2020) Medications Medication Sig Dispensed Refills Start Date [...] 8 Active predniSONE 10 MG Oral Tablet (DELTASONE)Indicati [...] or Wheezing. 54 g 3 1 Active Fluticasone-Salmete rol 250-50 MCG/DOSE Inhalation Aerosol Powder Breath Activated (Advair Diskus)Indications: SOB (shortness of breath) Inhale 1 Puff by mouth 2 times a day. Brand necessary 3 Each 3 1 Active predniSONE 10 MG Oral Tablet (Deltasone) Take 5 tabs for 2 days, 4 tabs for 2 days, 3 tabs for 2 days, 2 tabs for 2 days 1 tab for 2 days 30 Tab 0 1 Active Levalbuterol HCl 1.25 MG/3ML Inhalation Nebulization Solution (Xopenex)Indication s:Stage 3 severe COPD by GOLD classification ([facility]) Inhale 1 Ampule via nebulizer 3 times a day. Diagnosis code J44.9 Stage 3 Sever COPD by Gold classification [facility]. Diagnosis code J96.11 Chronic Resp Failure with hypoxia on home oxygen therapy. 270 mL 4 1 Active Ipratropium Arnett 0.02 % Inhalation Solution (Atrovent)Indicatio ns:Stage 3 severe COPD by GOLD classification ([facility]) Inhale 2.5 mL via nebulizer 3 times a day. Diagnosis code J44.9 Stage 3 Sever COPD by Gold classification [facility]. Diagnosis code J96.11 Chronic Resp Failure with hypoxia on home oxygen therapy. 270 mL 4 1 Active Folic Acid 1 MG Oral TabletIndications:C hronic respiratory failure with hypoxia, on home O2 therapy ([facility]) TAKE 1 TABLET BY MOUTH EVERY DAY 90 Tab 1 1 Active Folic Acid 1 MG Oral TabletIndications:C hronic respiratory failure with hypoxia, on home O2 therapy ([facility]) Take 1 Tab by mouth daily. 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 documented as of this encounter (statuses as of 07/29/2020) Resolved Problems Problem Noted Date Resolved Date [...] as of this encounter (statuses as of 07/29/2020) Immunizations Name Administration Dates Next Due PPD [...] Telephone Encounter - Alan Rod MD - 07/29/2020 8:48 AM EST Signed Prescriptions: Disp Refills Folic Acid 1 MG Oral Tablet 90 Tab 1 Sig: TAKE 1 TABLET BY MOUTH EVERY DAY Authorizing Provider: ALAN ROD * Telephone Encounter - Nicole Ballard RP - 07/28/2020 10:50 AM EST Pending Prescriptions: Disp Refills Folic Acid 1 MG Oral Tablet [Pharmacy Med*90 Tab 1 Sig: TAKE 1 TABLET BY MOUTH EVERY DAY * Telephone Encounter - Nicole Ballard RPh - 07/28/2020 10:50 AM EST Pending Prescriptions: Disp Refills Folic Acid 1 MG Oral Tablet [Pharmacy Med*90 Tab 1 Sig: TAKE 1 TABLET BY MOUTH EVERY DAY Last Office/Telemedicine Visit: 07/11/2020 Next Office Visit: No Future Appointments If no future appointments scheduled, and last appointment is greater than a year ago, please schedule patient for a follow-up appointment Last date the medication was ordered: 03/26/2020 [facility]acy: [id number] [id number] [facility] Is this request for a controlled substance?No Urine Drug Screen:No results found for this or any previous visit. Patient Phone Numbers Labs: Lab Results Component Value Date/Time CREAT 0.79 12/27/2017 CREAT 1.1 06/18/2017 09:59 AM POTASSIUM 3.4 (A) 12/27/2017 POTASSIUM 3.8 06/18/2017 09:59 AM TSH 1.06 08/30/2006 11:56 AM LDLCALC 74 02/17/2008 03:12 PM ALT 20 05/17/2017 ALT 23 02/17/2008 03:12 PM HGBA1C 5.7 08/30/2006 11:56 AM documented in this encounter Plan of Treatment Upcoming Encounters Date Type Specialty Care Team Description 08/05/2020 Pharmacy Dynamite Reclaimer, Pharmacy Reimbursement [address] [place] [address] Health Maintenance Due Date Last Done Comments Zoster Vaccines (1 of 2) 1992 LUNG CANCER SCREENING YEARLY-USE SMARTSET 36255 06/23/2018 06/23/2017 Influenza Vaccine (FLU shot) (#1) [...] Documents on File Type Date Recorded Patient Security Assurance Specialist 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 Advanced Directive Advanced Directive Advanced Directive Advanced Directive
--- OUTSIDE RECORDS SUMMARY | 2023-04-08 23:17 | External Medical Summary | Summary of Care ---
Author Name Unknown Organization [place] [address] Care Team Providers Care Web Developer Programmer Name Role Phone Alan Meyers MD Primary Care Provide r Reason for Visit * Reason Comments Patient Assistance Program Encounter Details Date Type Department Care Team Description 08/08/2020 Pharmacy Pharmacy, [place] [address] [place] [address] Coordinator, Pharmacy [facility] [address] [place] [address] [phone] Stage 3 severe COPD by GOLD classification [...] 3 severe COPD by GOLD classification ([facility]) Inhale 1 Ampule via nebulizer 3 times a day. Diagnosis code J44.9 Stage 3 Sever COPD by Gold classification [facility]. Diagnosis code J96.11 Chronic Resp Failure with hypoxia on home oxygen therapy. 270 mL 4 07/25/2020 Active Ipratropium Americus 0.02 % Inhalation Solution (Atrovent)Indication s:Stage 3 severe COPD by GOLD classification ([facility]) Inhale 2.5 mL via nebulizer 3 times a day. Diagnosis code J44.9 Stage 3 Sever COPD by Gold classification [facility]. Diagnosis code J96.11 Chronic Resp Failure with hypoxia on home oxygen therapy. 270 mL 4 07/25/2020 Active Folic Acid 1 MG Oral TabletIndications:Ch ronic respiratory failure with hypoxia, on home O2 therapy ([facility]) TAKE 1 TABLET BY MOUTH EVERY [...] 08/08/2020 9:13 AM EST Fax received from [employer], income documentation is needed to be faxed to [phone]. [facility] faxing 2019 income that was on file in [facility]. [facility] lm for patient to mail in current information for 2020 in case it is requested from [employer]. Also mailing letter with envelope to mail it to office JAH Conner Pharmaceutical Production Assistant 08/08/2020, 9:15 AM documented in this encounter Plan of Treatment Upcoming Encounters Date Type Specialty Care Team Description 08/19/2020 Pharmacy Movement Assembler, Pharmacy Reimbursement [address] [facility] [place] [address] [phone] Health Maintenance Due Date Last Done Comments Zoster Vaccines (1 of 2) 1992 LUNG CANCER SCREENING YEARLY-USE SMARTSET 49661 06/23/2018 06/23/2017 Influenza Vaccine (FLU shot) (#1) [...] Documents on File Type Date Recorded Patient Preparation Plant Supervisor Expl anation Advanced Directive service a emleia default Advanced Directive Advanced Directive Advanced Directive Advanced Directive Advanced Directive Advanced Directive Advanced Directive Advanced Directive
--- OUTSIDE RECORDS SUMMARY | 2023-04-08 23:17 | External Medical Summary | Summary of Care ---
Author Name Unknown Organization [place] [address] Care Team Providers Care Retail Operations Manager Name Role Phone Alan Meyers MD Primary Care Provide r Reason for Visit * Reason Onset Date Comments FYI 08/07/2020 Encounter Details Date Type Department Care Team Description 08/07/2020 [address] [address] Alan Meyers MD [address] [place] [address] [place] [address] Allergies No Known Active Allergiesdocumented as of [...] ([facility]) Inhale 1 Ampule via nebulizer 3 times a day. 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 Diagnosis code J96.11 Chronic Resp Failure with hypoxia on home oxygen therapy. 270 mL 4 07/25/2020 Active Ipratropium Dennison 0.02 % Inhalation Solution (Atrovent)Indication s:Stage 3 [...] encounter Miscellaneous Notes * Telephone Encounter - Elvi Ortez PHARM Tech - 08/07/2020 4:39 PM EST Pt daughter calling wanting to speak to the office. Said she needs to speak to the office. Offered to send message. She said no. In regards to papers that she needs signed and she has to wait for. 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
--- OUTSIDE RECORDS SUMMARY | 2023-04-08 23:18 | External Medical Summary | Summary of Care ---
Author Name Unknown Organization [place] [address] Care Team Providers Care Supervisor Concrete Block Plant Name Role Phone Alan Meyers MD Primary Care Provide r Encounter Details Date Type Department Care Team Description 04/10/2020 Scan Encounter Unspecified Department <No scans attached> Allergies No Known Active Allergiesdocumented as of this encounter (statuses as of 04/12/2020) Medications Medication Sig Dispensed Refills Start Date [...] For heartburn 60 Tab 5 06/01/2018 Active fluticasone-salmeterol (ADVAIR DISKUS) 250-50 MCG/DOSE inhalerIndications:SOB (shortness of breath) Inhale 1 Puff by mouth 2 times a day. Brand necessary 3 Each 3 09/19/2019 Active Albuterol Sulfate (ALBUTEROL HFA) 108 (90 BASE) MCG/ACT inhalerIndications:SOB (shortness of breath) Inhale 2 Puffs by mouth every 4 hours as needed for Shortness of Breath or Wheezing. 18 g 5 09/27/2019 Active predniSONE (DELTASONE) 10 MG TabletIndications:COPD exacerbation (HCC) Take 5 tabs for 2 days, 4 tabs for 2 days, 3 tabs for 2 days, 2 tabs for 2 days 1 tab for 2 days 30 Tab 1 11/13/2019 Active amoxicillin-clavulanat e (AUGMENTIN) 875-125 MG per TabletIndications:COPD exacerbation (HCC) Take 1 Tab by mouth every 12 hours. 20 Tab 1 11/13/2019 Active ipratropium (ATROVENT) 0.02 % nebulizer solutionIndications:St age 3 severe COPD by GOLD classification ([facility]) Inhale 2.5 mL via nebulizer 3 times a day. 270 mL 4 12/13/2019 Active levalbuterol (XOPENEX) 1.25 MG/3ML nebulizer solutionIndications:St age 3 severe COPD by GOLD classification ([facility]) Inhale 1 Ampule via nebulizer 3 times a day. 270 mL 4 12/13/2019 Active predniSONE (DELTASONE) 20 MG Tablet TAKE 2 TABLETS A DAY FOR 5 DAYS, THEN 1 TABLET A DAY FOR 5 DAYS 15 Tab 0 01/23/2020 Active predniSONE (DELTASONE) 10 MG TabletIndications:Molly re chronic obstructive pulmonary disease (HCC) One daily with food 90 Tab 1 01/26/2020 Active Folic Acid 1 MG Oral TabletIndications:Assembly Room Supervisor rodrigo respiratory failure with hypoxia, on home O2 therapy ([facility]) Take 1 Tab by mouth daily. 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 documented as of this encounter (statuses as of 04/12/2020) Resolved Problems Problem Noted Date Resolved Date [...] as of this encounter (statuses as of 04/12/2020) Immunizations Name Administration Dates Next Due PPD [...] Type Specialty Care Team Description 08/05/2020 Pharmacy Public Relations Manager, Pharmacy Reimbursement [address] [facility] [place] [address] Health Maintenance Due Date Last Done Comments Zoster Vaccines (1 of 2) 1992 LUNG CANCER SCREENING YEARLY-USE SMARTSET 78227 06/23/2018 06/23/2017 Influenza Vaccine (FLU shot) (#1) [...] Documents on File Type Date Recorded 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
--- OUTSIDE RECORDS SUMMARY | 2023-04-08 23:18 | External Medical Summary | Summary of Care ---
Author Name Unknown Organization [place] [address] Care Team Providers Care Manager Psychology Name Role Phone Alan Meyers MD Primary Care Provide r Reason for Visit * Reason Onset Date Comments Medication Refill 06/10/2020 Medication Refill 06/14/2020 Encounter Details Date Type Department Care Team Description 06/10/2020 Refill Family Practice [facility] [address] [facility] [place] [address] Alan Meyers MD [address] [facility] [place] [address] [phone] Severe chronic obstructive pulmonary disease (HCC) Allergies No Known Active Allergiesdocumented as of this encounter (statuses as of 06/14/2020) Medications Medication Sig Dispensed Refills Start Date End Date Status THIAMINE (VITAMIN B-1) 100 MG Tablet Take 100 mg by mouth daily. 0 04/29/2017 Active oxygen GASIndications:Inc to 4LPM with ambulation/exertion Use 2 L/min(Oxygen) as directed continuous. Indications: Inc to 4LPM with ambulation/exert ion 0 04/28/2017 Active acetaminophen (TYLENOL) 500 MG [...] 01/23/2020 Active Folic Acid 1 MG Oral TabletIndications:Ch ronic respiratory failure with hypoxia, on home O2 therapy ([facility]) Take 1 Tab by mouth daily. 90 Tab 1 03/26/2020 Active Amoxicillin-Pot Clavulanate 875-125 MG Oral TabletIndications:CO PD exacerbation ([facility]) Take 1 Tab by mouth every 12 hours. 20 Tab 1 05/27/2020 Active predniSONE 10 MG Oral Tablet (DELTASONE)Indicatio ns:COPD exacerbation (HCC) Take 5 tabs for 2 days, 4 tabs for 2 days, 3 tabs for 2 days, 2 tabs for 2 days 1 tab for 2 days 30 Tab 1 05/27/2020 Active predniSONE 10 MG Oral Tablet (DELTASONE)Indicatio ns:Severe chronic obstructive pulmonary disease (HCC) One daily with food 90 Tab 1 06/10/2020 Active fluticasone-salmeter ol (ADVAIR DISKUS) 250-50 MCG/DOSE inhalerIndications:S OB (shortness of breath) Inhale 1 Puff by mouth 2 times a day. Brand necessary 3 Each 3 09/19/2019 1 Discontinue d(Refill) Albuterol Sulfate (ALBUTEROL HFA) 108 (90 BASE) MCG/ACT inhalerIndications:S OB (shortness of breath) Inhale 2 Puffs by mouth every 4 hours as needed for Shortness of Breath or Wheezing. 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 documented as of this encounter (statuses as of 06/14/2020) Resolved Problems Problem Noted Date Resolved Date [...] as of this encounter (statuses as of 06/14/2020) Immunizations Name Administration Dates Next Due PPD [...] Telephone Encounter - Uvaldo Colón CPhT - 06/14/2020 10:07 AM EST Patient's girlfriend Tiara called in questioning why prednisone only refilled for 30 tablets - advised showing script was submitted for 90 tablets on 06/10/2020 Advised could either be insurance limiting qty or they filled previous rx and not new one Thank you, Tommy Colón ([facility]) Strainer Tender III Retail Pharmacy Call Center 06/14/2020, 10:07 AM * Telephone Encounter - Alan Meyers MD - 06/10/2020 9:58 AM EST Signed Prescriptions: Disp Refills predniSONE 10 MG Oral Tablet (DELTASONE) 90 Tab 1 Sig: One daily with food Authorizing Provider: ALAN MEYERS * Telephone Encounter - Ragini Chao CPhT - 06/10/2020 8:26 AM EST Pending Prescriptions: Disp Refills predniSONE 10 MG Oral Tablet (DELTASONE) 90 Tab 1 Sig: One daily with food Last Office/Telemedicine Visit: 12/18/2019 Next Office Visit: No Future Appointments If no future appointments scheduled, and last appointment is greater than a year ago, please schedule patient for a follow-up appointment Last date the medication was ordered: [id number] Ragini Moon Cash Register Balancer II Pharmacy Refill Call Center 18:27 AM Pharmacy: [id number] [address] [facility] Is this request for a controlled substance?No Urine Drug Screen:No results found for this or any previous visit. Patient Phone Numbers Labs: Lab Results Component Value Date/Time CREAT 0.79 12/27/2017 CREAT 1.1 06/18/2017 09:59 AM POTASSIUM 3.8 06/18/2017 09:59 AM TSH 1.06 08/30/2006 11:56 AM LDLCALC 74 02/17/2008 03:12 PM ALT 23 02/17/2008 03:12 PM HGBA1C 5.7 08/30/2006 11:56 AM documented in this encounter Plan of Treatment Upcoming Encounters Date Type Specialty Care Team Description 06/19/2020 Pharmacy Microfilm Processor, Pharmacy Reimbursement [address] [place] [address] 08/05/2020 Pharmacy Microfilm Processor, Pharmacy Reimbursement [address] [place] [address] Health Maintenance Due Date Last Done Comments Zoster Vaccines (1 of 2) 1992 LUNG CANCER SCREENING YEARLY-USE SMARTSET 99483 06/23/2018 06/23/2017 Influenza Vaccine (FLU shot) (#1) [...] as of this encounter Visit Diagnoses Diagnosis Severe chronic obstructive pulmonary disease (HCC) Chronic airway obstruction, not elsewhere classified documented in this encounter Advance Directives Documents on File Type Date Recorded Patient Porter Bath 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 Advanced Directive Advanced Directive
--- OUTSIDE RECORDS SUMMARY | 2023-04-08 23:18 | External Medical Summary | Summary of Care ---
Author Name Unknown Organization [place] [address] Care Team Providers Care Plastic Sheeting Cutter Name Role Phone Alan Meyers MD Primary Care Provide r Reason for Visit * Reason Comments Fax Encounter Details Date Type Department Care Team Description 12/19/2019 Telephone Family Practice [facility] [address] [facility] [place] [address] Alan Meyers MD [address] [place] [address] [phone] Fax Allergies No Known Allergiesdocumented as of this encounter (statuses as of 12/20/2019) Medications Medication Sig Dispensed Refills Start Date [...] For heartburn 60 Tab 5 06/01/2018 Active folic acid 1 MG TabletIndications:Slide Attendant rodrigo respiratory failure with hypoxia, on home O2 therapy (HCC) Take 1 Tab by mouth daily. 90 Tab 1 06/23/2019 Active predniSONE (DELTASONE) 10 MG TabletIndications:Molly re chronic obstructive pulmonary disease (HCC) One daily with food 90 Tab 1 07/27/2019 Active fluticasone-salmeterol (ADVAIR DISKUS) 250-50 MCG/DOSE inhalerIndications:SOB [...] age 3 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 270 mL 4 12/13/2019 Active levalbuterol (XOPENEX) 1.25 MG/3ML nebulizer solutionIndications:St age 3 severe COPD by GOLD classification ([facility]) Inhale 1 Ampule via nebulizer 3 times a day. 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 documented as of this encounter (statuses as of 12/20/2019) Resolved Problems Problem Noted Date Resolved Date [...] as of this encounter (statuses as of 12/20/2019) Immunizations Name Administration Dates Next Due PPD [...] file Not on file Not on file Travel History Travel Start Travel End No recent travel history krystle ilable. COVID-19 Exposure Response Date Recorded In the last month, have you been in contact with someone who was confirmed or suspected to have Coronavirus / COVID-19? No / Unsure 12/18/2019 6:24 PM EDT documented as of this encounter Miscellaneous Notes * Telephone Encounter - Sandra Rowley OSA - 12/20/2019 9:26 AM EDT Pt daughter Maria Isabel calling in stating that the fax was never received. Please advise and fax to the [phone]. * Telephone Encounter - Kristi Veras LPN - 12/19/2019 3:01 PM EDT Printed med list. Faxed to attn: jer * Telephone Encounter - Kristi River OSA - 12/19/2019 11:03 AM EDT Caller requesting the following information to be faxed: Name/Company of caller: patient Information requested to be faxed: Current list of medication Fax number: [phone] Attention to Name/Company: [employer] Any additional information?: Needed to apply for PACE documented in this encounter Plan of Treatment Upcoming Encounters Date Type Specialty Care Team Description 08/05/2020 Pharmacy Elastic Tape Inserter, Pharmacy Reimbursement [address] [place] [address] [phone] Health Maintenance Due Date Last Done Comments Zoster Vaccines (1 of 2) 1992 LUNG CANCER SCREENING YEARLY-USE SMARTSET [address]91 06/23/2018 06/23/2017 Influenza Vaccine (FLU shot) (#1) [...] Documents on File Type Date Recorded Patient Media Services Director 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
--- OUTSIDE RECORDS SUMMARY | 2023-04-08 23:18 | External Medical Summary | Summary of Care ---
Author Name Unknown Organization [place] [address] Care Team Providers Care Hair Stylist Name Role Phone Lb Rod MD Primary Care Provide r Reason for Visit * Reason Comments eRx-Medication Refill Medication Refill Encounter Details Date Type Department Care Team Description 01/22/2020 Telephone Internal Medicine [address] [address] Abram Owens MD [address] [place] [address] [place] [id number] eRx-Medication Refill; Medication Refill Allergies No Known Allergiesdocumented as of this encounter (statuses as of 01/26/2020) Medications Medication Sig Dispensed Refills Start Date [...] 5 06/01/2018 Active folic acid 1 MG TabletIndications:Quality Coordinator rodrigo respiratory failure with hypoxia, on home [...] Active predniSONE (DELTASONE) 10 MG TabletIndications:COPD exacerbation ([facility]) Take 5 tabs for 2 days, 4 tabs for 2 days, 3 tabs for 2 days, 2 tabs for 2 days 1 tab for 2 days 30 Tab 1 11/13/2019 Active amoxicillin-clavulanat e (AUGMENTIN) 875-125 MG per TabletIndications:COPD exacerbation ([facility]) Take 1 Tab by mouth every 12 hours. 20 Tab 1 11/13/2019 Active ipratropium (ATROVENT) 0.02 % nebulizer solutionIndications:St age 3 severe COPD by GOLD classification ([facility]) Inhale 2.5 mL via nebulizer 3 times a day. 270 mL 4 12/13/2019 Active levalbuterol (XOPENEX) 1.25 MG/3ML nebulizer solutionIndications:St age 3 severe COPD by GOLD classification ([facility]) Inhale 1 Ampule via nebulizer 3 times a day. 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 documented as of this encounter (statuses as of 01/26/2020) Resolved Problems Problem Noted Date Resolved Date [...] as of this encounter (statuses as of 01/26/2020) Immunizations Name Administration Dates Next Due PPD [...] Travel End No recent travel history krystle brown. documented as of this encounter Miscellaneous Notes * Telephone Encounter - Marylin Vides PHARM Tech - 01/26/2020 3:43 PM EDT pt's relative states that pt wants his prednisone change back to a 90 day supply once daily she states that he's older and cant remember certain things Please review and change prescription if appropriate. Thanks, Marylin Vides Amalgamator [facility] 01/26/2020, 3:47 PM * Telephone Encounter - Lb Rod MD - 01/23/2020 1:54 PM EDT Signed Prescriptions: Disp Refills predniSONE (DELTASONE) 20 MG Tablet 15 Tab 0 Sig: TAKE 2 TABLETS A DAY FOR 5 DAYS, THEN 1 TABLET A DAY FOR 5 DAYS Authorizing Provider: LB ROD * Telephone Encounter - Merced [facility] - 01/23/2020 1:40 PM EDT Pending Prescriptions: Disp Refills predniSONE (DELTASONE) 20 MG Tablet [Phar*15 Tab 0 Sig: TAKE 2 TABLETS A DAY FOR 5 DAYS, THEN 1 TABLET A DAY FOR 5 DAYS * Telephone Encounter - Merced [facility] - 01/23/2020 1:34 PM EDT In addition to refill, patient with COPD appears to be new to you. If you think patient would benefit from COPD [facility] pharmacist (new program), please route back to meand I will call patient to gauge his interest. If he is interested, I will pend the referral for you. Thank you, Merced Choi [facility] Clinical Pharmacist [facility] [phone] 01/23/2020, 1:37 PM * Telephone Encounter - Merecd Ch[facility] - 01/23/2020 1:32 PM EDT Patient requesting prednisone taper: [facility] refills for this class of medication per refillprotocol. Please approve if appropriate. Thank you, Merced Choi [facility] Clinical Pharmacist [facility] [phone] 01/23/2020, 1:32 PM * Telephone Encounter - Merced Choi [facility] - 01/23/2020 1:29 PM EDT Pending Prescriptions: Disp Refills predniSONE (DELTASONE) 20 MG Tablet [Phar*15 Tab 0 Sig: TAKE 2 TABLETS A DAY FOR 5 DAYS, THEN 1 TABLET A DAY FOR 5 DAYS Last Office/Telemedicine Visit: 06/30/2019 Next Office Visit: No Future Appointments If no future appointments scheduled, and last appointment is greater than a year ago, please schedule patient for a follow-up appointment Last date the medication was ordered: 11/13/2019 Pharmacy: [facility], [facility] JIMMIE ROSARIO Is this request for a controlled substance?No [...] Type Specialty Care Team Description 08/05/2020 Pharmacy Central Supply Manager, Pharmacy Reimbursement [address] [facility] [place] [address] [phone] Health Maintenance Due Date Last Done Comments Zoster Vaccines (1 of 2) 1990 LUNG CANCER SCREENING YEARLY-USE SMARTSET 19563 06/23/2018 06/23/2017 Influenza Vaccine (FLU shot) (#1) [...] on File Type Date Recorded 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
--- OUTSIDE RECORDS SUMMARY | 2023-04-08 23:18 | External Medical Summary | Summary of Care ---
Author Name Unknown Organization [place] [address] Care Team Providers Care Market Relationship Manager Name Role Phone Alan Meyers MD Primary Care Provide r Reason for Visit * Reason Onset Date Comments Med Request 05/27/2020 Encounter Details Date Type Department Care Team Description 05/27/2020 Telephone Family Practice [facility] [address] [facility] [place] [address] Alan Meyers MD [address] [place] [address] [phone] Med Request Allergies No Known Active Allergiesdocumented as of this encounter (statuses as of 05/27/2020) Medications Medication Sig Dispensed Refills Start Date [...] For heartburn 60 Tab 5 06/01/2018 Active fluticasone-salmeter ol (ADVAIR DISKUS) 250-50 MCG/DOSE inhalerIndications:S OB (shortness of breath) Inhale 1 Puff by mouth 2 times a day. Brand necessary 3 Each 3 09/19/2019 Active Albuterol Sulfate (ALBUTEROL HFA) 108 (90 BASE) MCG/ACT inhalerIndications:S OB (shortness of breath) Inhale 2 Puffs by mouth every 4 hours as needed for Shortness of Breath or Wheezing. 18 g 5 09/27/2019 Active ipratropium (ATROVENT) 0.02 % nebulizer solutionIndications: Stage 3 severe COPD by GOLD classification ([facility]) Inhale 2.5 mL via nebulizer 3 times a day. 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 270 mL 4 12/13/2019 Active predniSONE (DELTASONE) 20 MG Tablet TAKE 2 TABLETS A DAY FOR 5 DAYS, THEN 1 TABLET A DAY FOR 5 DAYS 15 Tab 0 01/23/2020 Active predniSONE (DELTASONE) 10 MG TabletIndications:[place] chronic obstructive pulmonary disease (HCC) One daily with food 90 Tab 1 01/26/2020 Active Folic Acid 1 MG Oral TabletIndications:Ch ronic respiratory failure with hypoxia, on home O2 therapy ([facility]) Take 1 Tab by mouth daily. 90 [...] days 30 Tab 1 05/27/2020 Active predniSONE (DELTASONE) 10 MG TabletIndications:CO PD exacerbation (HCC) Take 5 tabs for 2 days, 4 tabs for 2 days, 3 tabs for 2 days, 2 tabs for 2 days 1 tab for 2 days 30 Tab 1 11/13/2019 0 Discontinue d(Refill) amoxicillin-clavulan ate (AUGMENTIN) 875-125 MG per TabletIndications:CO PD exacerbation (HCC) Take 1 Tab by mouth every 12 hours. 20 Tab 1 11/13/2019 0 Discontinue d(Refill) documented as of this encounter (statuses as of 05/27/2020) Active Problems Problem Noted Date Chronic respiratory failure with hypoxia , on home O2 therapy 12/03/2017 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 documented as of this encounter (statuses as of 05/27/2020) Resolved Problems Problem Noted Date Resolved Date [...] as of this encounter (statuses as of 05/27/2020) Immunizations Name Administration Dates Next Due PPD [...] encounter Miscellaneous Notes * Telephone Encounter - Tenisha Prince OSA - 05/27/2020 2:18 PM EST Patient has been notified of the message. Patient has no further questions. * Telephone Encounter - Shannan Posey LPN - 05/27/2020 1:35 PM EST Called pt, let detailed message on identified vm * Telephone Encounter - Alan Meyers MD - 05/27/2020 1:30 PM EST Rx sent to [facility]. Please let pt know. * Telephone Encounter - Samuel Mccauley LPN - 05/27/2020 10:49 AM EST Pending Prescriptions: Disp Refills Amoxicillin-Pot Clavulanate 875-125 MG Or*20 Tab 1 Sig: Take 1 Tab by mouth every 12 hours. predniSONE 10 MG Oral Tablet (DELTASONE) 30 Tab 1 Sig: Take 5 tabs for 2 days, 4 tabs for 2 days, 3 tabs for 2 days, 2 tabs for 2 days 1 tab for 2 days Last Office/Telemedicine Visit: 12/18/2019 Next Office Visit: No Future Appointments Last date the medication was ordered: 11/13/2019 Patient Active Problem List Diagnosis Code ADVANCE DIRECTIVE INFORMATION History of tobacco use Z87.891 Edentulous K08.109 Stage 3 severe COPD by GOLD classification ([facility]) J44.9 Oxygen dependent Z99.81 Chronic respiratory failure with hypoxia, on home O2 therapy ([facility]) J96.11, Z99.81 Gastroesophageal reflux disease with esophagitis K21.00 Labs: CREATININE-OUTSIDE LAB(MG/DL) [place] Dt/Tm Resulted Value Status 12/27/17 12/29/17 0.79 FINAL POTASSIUM-OUTSIDE LAB(MMOL/L) [place] Dt/Tm Resulted Value Status 12/27/17 12/29/17 3.4* FINAL TSH(uIU/mL) [place] Dt/Tm Resulted Value Status 08/30/06 11:56A 08/30/06 1.06 FINAL LDL (CALCULATED)(mg/dL) [place] Dt/Tm Resulted Value Status 02/17/08 3:12P 02/17/08 74 FINAL ALT-OUTSIDE LAB(U/L) [place] Dt/Tm Resulted Value Status 05/17/17 05/19/17 20 FINAL Hemoglobin AIC Results: HEMOGLOBIN, A1C(%) [place] Dt/Tm Resulted Value Status 08/30/06 11:56A 08/30/06 5.7 FINAL 07/15/05 5:06P 07/16/05 5.6 FINAL * Telephone Encounter - Charles Rojas OSA - 05/27/2020 9:10 AM EST Pt needs a new prescription for amoxicillin-clavulanate (AUGMENTIN) 875-125 MG per Tablet predniSONE (DELTASONE) 10 MG Tablet [phone] documented in this encounter Plan of Treatment Upcoming Encounters Date Type Specialty Care Team Description 08/05/2020 Pharmacy Manager Applied, Pharmacy Reimbursement [address], [place] [id number] Health Maintenance Due Date Last Done Comments Zoster Vaccines (1 of 2) 1990 LUNG CANCER SCREENING YEARLY-USE SMARTSET [address]134 06/23/2018 06/23/2017 Influenza Vaccine (FLU shot) (#1) [...] this encounter Visit Diagnoses Diagnosis COPD exacerbation (HCC) Obstructive chronic bronchitis with exacerbation documented in this encounter Advance Directives Documents on File Type Date Recorded Patient Manager Of Program 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
--- OUTSIDE RECORDS SUMMARY | 2023-04-08 23:18 | External Medical Summary | Summary of Care ---
Author Name Unknown Organization [place] [address] Care Team Providers Care Mat Sewer Name Role Phone Alan Meyers MD Primary Care Provide r Reason for Visit * Reason Comments Ear Problem pt c/o bilateral ear pressure L>R Encounter Details Date Type Department Care Team Description 12/18/2019 Office Visit Family Practice [facility] [address] [place] [address] Alan Meyers MD [address] [facility] [place] [address] [phone] Impacted cerumen of left ear* Allergies No Known Allergiesdocumented as of this encounter (statuses as of 12/18/2019) Medications Medication Sig Dispensed Refills Start Date [...] 5 06/01/2018 Active folic acid 1 MG TabletIndications:Merchandise Manager rodrigo respiratory failure with hypoxia, on home O2 therapy ([facility]) Take 1 Tab [...] as of this encounter (statuses as of 12/18/2019) Active Problems Problem Noted Date Chronic respiratory failure with hypoxia , on home O2 therapy 12/03/2017 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 documented as of this encounter (statuses as of 12/18/2019) Resolved Problems Problem Noted Date Resolved Date [...] as of this encounter (statuses as of 12/18/2019) Immunizations Name Administration Dates Next Due PPD [...] PM EDT documented as of this encounter Last Filed Vital Signs Vital Sign Reading Time Taken Comments Blood Pressure 110/64 12/18/2019 6:33 PM EDT Pulse 96 12/18/2019 6:33 PM EDT Temperature 36.8 C (98.2 F) 12/18/2019 6:33 PM ED T Respiratory Rate 16 12/18/2019 6:33 PM EDT Oxygen Saturation - - Inhaled Oxygen Concentration - - Weight - - Height - - Body Mass Index - - documented in this encounter Progress Notes * Alan Meyers MD - 12/18/2019 6:40 PM EDT 12/18/2019 Author: Alan Meyers MD Assessment/Plan There are no discontinued medications. Pt is a 79 year old male here for the following problems/concerns: (H61.22) Impacted cerumen of left ear (primary encounter diagnosis) Plan: REMOVE IMPACTED EAR WAX W/ INSTRUMENT, ONE EAR Avoid qtips Debrox prn Pt declined lung cancer screen Patient and or guardian communicated understanding and agreement of treatment plan including medications and there common side effects if indicated. All questions answered. CC/HPI: Jer Abreu Jr. is a 79 year old male Chief Complaint Patient presents with Ear Problem pt c/o bilateral ear pressure L>R Brief Clinical History Mr. Abreu is a 79 year old man last seen in Family Medicine 1 month ago (11-13-19). 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 Nursing Notes: Shannan Posey LPN 12/18/19 183 Signed The patient has been properly identified by confirmation of name and date of . Chief Complaint Patient presents with Ear Problem pt c/o bilateral ear pressure L>R Here for decreased hearing in left ear No pain Failed qtips Problem list: Patient Active Problem List Diagnosis Code ADVANCE DIRECTIVE INFORMATION History of tobacco use Z87.891 Edentulous K00.0 Stage 3 severe COPD by GOLD classification ([facility]) J44.9 Oxygen dependent Z99.81 Chronic respiratory failure with hypoxia, on home O2 therapy ([facility]) J96.11, Z99.81 Gastroesophageal reflux disease with esophagitis K21.0 Past Medical History: Past Medical History: Diagnosis Date Acute exacerbation of COPD with asthma ([facility]) 04/23/2017 [facility] Edentulous Gastroesophageal reflux disease with esophagitis Herpes zoster 01/11/2019 right neck and scalp Inflammation of sacroiliac joint ([facility]) 04/24/05 Loss of teeth due to trauma, extraction, or periodontal disease Other abnormal glucose 04/23/05 glucose 156 Other abnormal glucose 02/22/08 glucose 167 Other disorders of vitreous 12/05 Posterior vitreous detachment OS Other specified disorders of rotator cuff syndrome of shoulder and allied disorders 05/10 right shoulder Pneumonia 06/13/2017 left basal infiltrate Pneumonia due to Pseudomonas ([facility]) 05/20/2017 Severe chronic obstructive pulmonary disease ([facility]) 10/28/2016 severe by ATS criteria. [...] REMOVE CATARACT, INSERT LENS PROSTH Right 06/12/2019 [facility] REMOVE CATARACT, INSERT LENS PROSTH Left 06/26/2019 [facility] Medication List: Current Outpatient Medications Medication Sig Dispense Refill ipratropium (ATROVENT) 0.02 % nebulizer solution Inhale 2.5 mL via nebulizer 3 times a day. 270mL 4 levalbuterol (XOPENEX) 1.25 MG/3ML nebulizer solution Inhale 1 Ampule via nebulizer 3 times a day. 270 mL 4 Albuterol Sulfate (ALBUTEROL HFA) 108 (90 BASE) MCG/ACT inhaler Inhale 2 Puffs by mouth every 4hours as needed for Shortness of Breath or Wheezing. 18 g 5 fluticasone-salmeterol (ADVAIR DISKUS) 250-50 MCG/DOSE inhaler Inhale 1 Puff by mouth 2 times aday. Brand necessary 3 Each 3 predniSONE (DELTASONE) 10 MG Tablet One daily with food 90 Tab 1 folic acid 1 MG Tablet Take 1 Tab by mouth daily. 90 Tab 1 roflumilast (DALIRESP) 500 MCG Tablet Take 500 [...] Tablet Take 100 mg by mouth daily. amoxicillin-clavulanate (AUGMENTIN) 875-125 MG per Tablet Take 1 Tab by mouth every 12 hours. 20 Tab 1 predniSONE (DELTASONE) 10 MG Tablet Take 5 tabs for 2 days, 4 tabs for 2 days, 3 tabs for 2 days, 2tabs for 2 days 1 tab for 2 days 30 Tab 1 famotidine (PEPCID AC) 10 MG Tablet Take 1 Tab by mouth 2 times a day. For heartburn 60 Tab 5 Allergies: Patient has no known allergies. Problem list, Past Medical History, Family history and social history reviewed and updated in [facility] EHR ROS: Constitutional ROS: No change in weight, No weakness, No fatigue and No fevers, sweats, or chills Vitals: BP 110/64 | Pulse 96 | Temp (Src) 98.2 (Tympanic) | Resp 16 BMI: There is no height or weight on file. Exam: General: alert, healthy and no distress Head: Normocephalic, No masses, lesions, tenderness or abnormalities Ears: External ears normal, R TM shiny and non-erythematous, L TM not visualized secondary to cerumen Cerumenosis is noted. Wax is removed by syringing and manual debridement TM normal after wax removal Assessment and plan located at the top of the page documented in this encounter Nursing Notes * Shannan Posey LPN - 12/18/2019 6:33 PM EDT The patient has been properly identified by confirmation of name and date of . Chief Complaint Patient presents with Ear Problem pt c/o bilateral ear pressure L>R documented in this encounter Plan of Treatment Upcoming Encounters Date Type Specialty Care Team Description 08/05/2020 Pharmacy Product Design Specialist, Pharmacy Reimbursement [address] [place] [address] [phone] Scheduled Orders Name Type Priority Associated Diagnoses Orde r Schedule REMOVE IMPACTED EAR WAX W/ INSTRUMENT, ONE EAR Procedures Routine Impacted cerumen of left ear Ordered: 12/18/2019 Health Maintenance Due Date Last Done Comments Zoster Vaccines (1 of 2) 1990 LUNG CANCER SCREENING YEARLY-USE SMARTSET 74184 06/23/2018 06/23/2017 Influenza Vaccine (FLU shot) (#1) [...] as of this encounter Visit Diagnoses Diagnosis Impacted cerumen of left ear- Primary Impacted cerumen documented in this encounter Advance Directives Documents on File Type Date Recorded Patient Regulatory And Compliance Technician 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"
--- OUTSIDE RECORDS SUMMARY | 2023-04-08 23:18 | External Medical Summary | Summary of Care ---
Author Name Unknown Organization [place] [address] Care Team Providers Care Hospice Volunteer Name Role Phone Alan Meyers MD Primary Care Provide r Reason for Visit * Reason Comments Fax Encounter Details Date Type Department Care Team Description 12/19/2019 Telephone Family Practice [facility] [address] [facility] [place] [address] Alan Meyers MD [address] [place] [address] [phone] Fax Allergies No Known Allergiesdocumented as of this encounter (statuses as of 12/19/2019) Medications Medication Sig Dispensed Refills Start Date [...] 5 06/01/2018 Active folic acid 1 MG TabletIndications:Paraprofessional Interpreter rodrigo respiratory failure with hypoxia, on home [...] age 3 severe COPD by GOLD classification ([facility]) Inhale 2.5 mL via nebulizer 3 times a day. 270 mL 4 12/13/2019 Active levalbuterol (XOPENEX) 1.25 MG/3ML nebulizer solutionIndications:St age 3 severe COPD by GOLD classification ([facility]) Inhale 1 Ampule via nebulizer 3 times a day. 270 mL 4 12/13/2019 Active documented as of this encounter (statuses as of 12/19/2019) Active Problems Problem Noted Date Chronic respiratory failure with hypoxia , on home O2 therapy 12/03/2017 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 documented as of this encounter (statuses as of 12/19/2019) Resolved Problems Problem Noted Date Resolved Date [...] as of this encounter (statuses as of 12/19/2019) Immunizations Name Administration Dates Next Due PPD [...] faxed: Current list of medication Fax number: [phone] Attention to Name/Company: Jer Any additional information?: Needed to apply for PACE documented in this encounter Plan of Treatment Upcoming Encounters Date Type Specialty Care Team Description 08/05/2020 Pharmacy High School Coordinator, Pharmacy Reimbursement [address], [place] [id number] Health Maintenance Due Date Last Done Comments Zoster Vaccines (1 of 2) 1992 LUNG CANCER SCREENING YEARLY-USE SMARTSET [address] 06/23/2018 06/23/2017 Influenza Vaccine (FLU shot) (#1) [...] Documents on File Type Date Recorded Patient Boarding Mother 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
--- OUTSIDE RECORDS SUMMARY | 2023-04-08 23:18 | External Medical Summary | Summary of Care ---
Author Name Unknown Organization [place] [address] Care Team Providers Care Supervisor Pumping Name Role Phone Alan Rod MD Primary Care Provide r Reason for Visit * Reason Comments eRx-Medication Refill Medication Refill Encounter Details Date Type Department Care Team Description 01/22/2020 Refill Internal Medicine [address] [address] Abram Owens MD [address] [place] [address] PR [id number] Severe chronic obstructive pulmonary disease (HCC) Allergies No Known Allergiesdocumented as of this encounter (statuses as of 01/28/2020) Medications Medication Sig Dispensed Refills Start Date [...] 5 06/01/2018 Active folic acid 1 MG TabletIndications:Ch ronic respiratory failure with hypoxia, on home O2 therapy (HCC) Take 1 Tab by mouth daily. 90 Tab 1 06/23/2019 Active fluticasone-salmeter ol (ADVAIR DISKUS) 250-50 MCG/DOSE [...] 5 09/27/2019 Active predniSONE (DELTASONE) 10 MG TabletIndications:CO PD exacerbation (HCC) Take 5 tabs for 2 days, 4 tabs for 2 days, 3 tabs for 2 days, 2 tabs for 2 days 1 tab for 2 days 30 Tab 1 11/13/2019 Active amoxicillin-clavulan ate (AUGMENTIN) 875-125 MG per TabletIndications:[place] PD exacerbation (HCC) Take 1 Tab by mouth every 12 hours. 20 Tab 1 11/13/2019 Active ipratropium (ATROVENT) 0.02 % nebulizer solutionIndications: Stage 3 severe COPD by GOLD classification ([facility]) Inhale 2.5 mL via nebulizer 3 times a day. 270 mL 4 12/13/2019 Active levalbuterol (XOPENEX) 1.25 MG/3ML nebulizer solutionIndications: Stage 3 severe COPD by GOLD classification ([facility]) Inhale 1 Ampule via nebulizer 3 times a day. 270 mL 4 12/13/2019 Active predniSONE (DELTASONE) 20 MG Tablet TAKE 2 TABLETS A DAY FOR 5 DAYS, THEN 1 TABLET A DAY FOR 5 DAYS 15 Tab 0 01/23/2020 Active predniSONE (DELTASONE) 10 MG TabletIndications:Se pollo chronic obstructive pulmonary disease (HCC) One daily with food 90 Tab 1 01/26/2020 Active predniSONE (DELTASONE) 10 MG TabletIndications:Se pollo chronic obstructive pulmonary disease (HCC) One daily with food 90 Tab 1 07/27/2019 0 Discontinue d(Refill) documented as of this encounter (statuses as of 01/28/2020) Active Problems Problem Noted Date Chronic respiratory failure with hypoxia , on home O2 therapy 12/03/2017 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 documented as of this encounter (statuses as of 01/28/2020) Resolved Problems Problem Noted Date Resolved Date [...] as of this encounter (statuses as of 01/28/2020) Immunizations Name Administration Dates Next Due PPD [...] End No recent travel history krystle ilable. documented as of this encounter Miscellaneous Notes * Telephone Encounter - Ana Bynum LPN - 01/28/2020 8:32 AM EDT Signed Prescriptions: Disp Refills predniSONE (DELTASONE) 20 MG Tablet 15 Tab 0 Sig: TAKE 2 TABLETSA DAY FOR 5 DAYS, THEN 1 TABLET A DAY FOR 5 DAYSAuthorizing Provider: ALAN ROD predniSONE (DELTASONE) 10 MG Tablet 90 Tab 1 Sig: One daily with foodAuthorizing Provider: ALAN ROD * Telephone Encounter - Ana Bynum LPN - 01/28/2020 8:32 AM EDT Called and lm that his refill has been sent to his pharmacy. * Addendum Note - Alan Rod MD - 01/26/2020 3:58 PM EDT Addended by: ALAN ROD on: 01/26/2020 03:58 PM Modules accepted: Orders * Telephone Encounter - Alan Rod MD - 01/26/2020 3:58 PM EDT Rx sent to [facility]. Please let pt know. * Telephone Encounter - Marylin Vides PHARM Tech - 01/26/2020 3:43 PM EDT pt's relative states that pt wants his prednisone change back to a 90 day supply once daily she states that he's older and cant remember certain things Please review and change prescription if appropriate. Thanks, Marylin Vides Trimming Assembler [facility] 01/26/2020, 3:47 PM * Telephone Encounter - Alan Rod MD - 01/23/2020 1:54 PM EDT Signed Prescriptions: Disp Refills predniSONE (DELTASONE) 20 MG Tablet 15 Tab 0 Sig: TAKE 2 TABLETS A DAY FOR 5 DAYS, THEN 1 TABLET A DAY FOR 5 DAYS Authorizing Provider: ALAN ROD * Telephone Encounter - Merced Choi [facility] - 01/23/2020 1:40 PM EDT Pending Prescriptions: Disp Refills predniSONE (DELTASONE) 20 MG Tablet [Phar*15 Tab 0 Sig: TAKE 2 TABLETS A DAY FOR 5 DAYS, THEN 1 TABLET A DAY FOR 5 DAYS * Telephone Encounter - Merced Choi [facility] - 01/23/2020 1:34 PM EDT In addition to refill, patient with COPD appears to be new to you. If you think patient would benefit from COPD [facility] pharmacist (new program), please route back to meand I will call patient to gauge his interest. If he is interested, I will pend the referral for you. Thank you, Merced Choi [facility] Clinical Pharmacist [employer] [phone] 01/23/2020, 1:37 PM * Telephone Encounter - Merced Choi [facility] - 01/23/2020 1:32 PM EDT Patient requesting prednisone taper: Telepharmacy is currently not authorized to approve refills for this class of medication per refillprotocol. Please approve if appropriate. Thank you, Merced Choi [facility] Clinical Pharmacist [employer] [phone] 01/23/2020, 1:32 PM * Telephone Encounter - Merced Choi [facility] - 01/23/2020 1:29 PM EDT Pending Prescriptions: [...] medication was ordered: 11/13/2019 Pharmacy: Victor Manuel [facility], [address] [place] ROSARIO Is this request for [...] Type Specialty Care Team Description 08/05/2020 Pharmacy Research Advisor, Pharmacy Reimbursement [address] [facility] [place] [address] [phone] Health Maintenance Due Date Last Done Comments Zoster Vaccines (1 of 2) 1990 LUNG CANCER SCREENING YEARLY-USE SMARTSET 63506 06/23/2018 06/23/2017 Influenza Vaccine (FLU shot) (#1) [...] Documents on File Type Date Recorded Patient Claims Counsel 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
--- OUTSIDE RECORDS SUMMARY | 2023-04-08 23:18 | External Medical Summary | Summary of Care ---
Author Name Unknown Organization [place] [address] Care Team Providers Care Celebrity Manager Name Role Phone Alan Meyers MD Primary Care Provide r Reason for Visit * Reason Comments Patient Assistance Program Encounter Details Date Type Department Care Team Description 06/11/2020 Pharmacy Pharmacy, [place] [address] [place] [address] Coordinator, Pharmacy [facility] [address] [phone] COPD, severe (HCC)* Allergies No Known Active Allergiesdocumented as of this encounter (statuses as of 06/11/2020) Medications Medication Sig Dispensed Refills Start Date [...] ([facility]) Inhale 2.5 mL via nebulizer 3 times a day. 270 mL 4 12/13/2019 Active levalbuterol (XOPENEX) 1.25 MG/3ML nebulizer solutionIndications: Stage 3 severe COPD by GOLD classification ([facility]) Inhale 1 Ampule via nebulizer 3 times a day. 270 mL 4 12/13/2019 Active predniSONE (DELTASONE) 20 MG Tablet TAKE 2 TABLETS A DAY FOR 5 DAYS, THEN 1 TABLET A DAY FOR 5 DAYS 15 Tab 0 01/23/2020 Active Folic Acid 1 MG Oral TabletIndications:Ch ronic respiratory failure with hypoxia, on home O2 therapy ([facility]) Take 1 Tab by mouth daily. 90 Tab 1 03/26/2020 Active Amoxicillin-Pot Clavulanate 875-125 MG Oral TabletIndications:CO PD exacerbation ([facility]) Take 1 Tab by mouth every 12 hours. 20 Tab 1 05/27/2020 Active predniSONE 10 MG Oral Tablet (DELTASONE)Indicatio ns:COPD exacerbation ([facility]) Take 5 tabs for 2 days, 4 [...] 18 g 5 09/27/2019 1 Discontinue d(Refill) documented as of this encounter (statuses as of 06/11/2020) Active Problems Problem Noted Date Chronic respiratory failure with hypoxia , on home O2 therapy 12/03/2017 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 Patient Phone Numbers Coverage: Medicare A and B (No D) Medication:Advair Diskus, Ventolin HFA PRC spoke to Maria Isabel, patient needs a new prescription to cover another refill before re-enrollment process starts. PRC sent telephone encounter to provider to fax brand name prescriptions with cover sheet to [employer] [phone]. Follow up [facility] 1 week 06/19/2019. JAH Manriquez Pharmaceutical Radio Station Engineer 06/11/2020, 3:17 PM documented in this encounter Plan of Treatment Upcoming Encounters Date Type Specialty Care Team Description 06/19/2020 Pharmacy Account Contact Associate, Pharmacy Reimbursement [address] [place] [address] 08/05/2020 Pharmacy Account Contact Associate, Pharmacy Reimbursement [address] [place] [address] Health Maintenance Due Date Last Done Comments Zoster Vaccines (1 of 2) 1990 LUNG CANCER SCREENING YEARLY-USE SMARTSET [address]2390 06/23/2018 06/23/2017 Influenza Vaccine (FLU shot) (#1) [...] Documents on File Type Date Recorded Patient Automotive General Manager 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 Advanced Directive Advanced Directive
--- OUTSIDE RECORDS SUMMARY | 2023-04-08 23:18 | External Medical Summary | Summary of Care ---
Author Name Unknown Organization [place] [address] Care Team Providers Care Human Resources Executive Name Role Phone Alan Meyers MD Primary Care Provide r Reason for Visit * Reason Comments Patient Assistance Program Encounter Details Date Type Department Care Team Description 06/19/2020 Pharmacy Pharmacy, [place] [address] [place] [address] Coordinator, Pharmacy [facility] [address] [phone] COPD, severe (HCC)* Allergies No Known Active Allergiesdocumented as of this encounter (statuses as of 06/25/2020) Medications Medication Sig Dispensed Refills Start Date [...] age 5 severe COPD by GOLD classification ([facility]) Inhale 2.5 mL via nebulizer 3 times a day. 270 mL 4 12/13/2019 Active levalbuterol (XOPENEX) 1.25 MG/3ML nebulizer solutionIndications:St age 5 severe COPD by GOLD classification ([facility]) Inhale 1 Ampule via nebulizer 3 times a day. 270 mL 4 12/13/2019 Active predniSONE (DELTASONE) 20 MG Tablet TAKE 2 TABLETS A DAY FOR 5 DAYS, THEN 1 TABLET A DAY FOR 5 DAYS 15 Tab 0 01/23/2020 Active Folic Acid 1 MG Oral TabletIndications:Security Sme rodrigo respiratory failure with hypoxia, on home [...] with food 90 Tab 1 06/10/2020 Active documented as of this encounter (statuses as of 06/25/2020) Active Problems Problem Noted Date Chronic respiratory failure with hypoxia , on home O2 therapy 12/03/2017 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 documented as of this encounter (statuses as of 06/25/2020) Resolved Problems Problem Noted Date Resolved Date [...] as of this encounter (statuses as of 06/25/2020) Immunizations Name Administration Dates Next Due PPD [...] Progress Notes * Chele Gallardo, JAH - 06/11/2020 3:20 PM EST Follow up needs made to company Coverage:Medicare A and B (No D) Patient ID: [id number] [facility] [address] Patient Phone Numbers RX:Advair Diskus Dose: 250-50 Quanity 3 RX:Ventolin HFA Dose: 108 Quantity 3 Provider:Alan Meyers MD Please call [employer] to verify status of prescriptions. Phone number: [phone] Forms sent to provider:Request sent 06/11/2020 JAH Manriquez Pharmaceutical Screening Specialist 06/11/2020, 3:23 PM PRC spoke to [employer] rep, prescriptions were received. Advair Diskus and Ventolin HFA to be delivered to patient 7-10 business days. JAH Manriquez Pharmaceutical Screening Specialist 06/25/2020, 12:50 PM documented in this encounter Plan of Treatment Upcoming Encounters Date Type Specialty Care Team Description 08/05/2020 Pharmacy String Winding Machine Operator, Pharmacy Reimbursement [address] [facility] [place] [address] Health Maintenance Due Date Last Done Comments Zoster Vaccines (1 of 2) 1990 LUNG CANCER SCREENING YEARLY-USE SMARTSET [address] 06/23/2018 06/23/2017 Influenza Vaccine (FLU shot) (#1) [...] Documents on File Type Date Recorded Patient Fire Safety Director 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 Advanced Directive Advanced Directive
--- OUTSIDE RECORDS SUMMARY | 2023-04-08 23:18 | External Medical Summary | Summary of Care ---
Author Name Unknown Organization [place] [address] Care Team Providers Care Surgical Brace Maker Name Role Phone Alan Meyers MD Primary Care Provide r Reason for Visit * Reason Comments Fax Encounter Details Date Type Department Care Team Description 12/19/[address] [facility] [address] [facility] [place] [address] Alan Meyers MD [address] [place] [address] [phone] Fax Allergies No Known Allergiesdocumented as of [...] 5 06/01/2018 Active folic acid 1 MG TabletIndications:Field Liability Generalist rodrigo respiratory failure with hypoxia, on home [...] age 5 severe COPD by GOLD classification ([facility]) Inhale 2.5 mL via nebulizer 3 times a day. 270 mL 4 12/13/2019 Active levalbuterol (XOPENEX) 1.25 MG/3ML nebulizer solutionIndications:St age 3 severe COPD by GOLD classification ([facility] [...] received. Please advise and fax to the [phone]. * Telephone Encounter - Kristi Veras LPN - 12/19/2019 3:01 PM EDT Printed med list. Faxed to attn: jer * Telephone Encounter - Kristi River OSA - 12/19/2019 11:03 AM EDT Caller requesting the following information to be faxed: Name/Company of caller: patient Information requested to be faxed: Current list of medication Fax number: [phone] Attention to Name/Company: Jer Any additional information?: Needed to apply for PACE documented in this encounter Plan of Treatment Upcoming Encounters Date Type Specialty Care Team Description 08/05/2020 Pharmacy Manager Fraud, Pharmacy Reimbursement [address] [place] [address] [phone] Health Maintenance Due Date Last Done Comments Zoster Vaccines (1 of 2) 1990 LUNG CANCER SCREENING YEARLY-USE SMARTSET [address]1378 06/23/2018 06/23/2017 Influenza Vaccine (FLU shot) (#1) [...] Documents on File Type Date Recorded Patient Airline Stewardess 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
--- OUTSIDE RECORDS SUMMARY | 2023-04-08 23:18 | External Medical Summary | Summary of Care ---
Author Name Unknown Organization [place] [address] Care Team Providers Care Streetcar Dispatcher Name Role Phone Alan Meyers MD Primary Care Provide r Reason for Visit * Reason Comments Fax Encounter Details Date Type Department Care Team Description 12/19/2019 Telephone Family Practice [facility] [address] [facility] [place] [address] Alan Meyers MD [address] [place] [address] [phone] Fax Allergies No Known Allergiesdocumented as of [...] 5 06/01/2018 Active folic acid 1 MG TabletIndications:Pharmacy Manager rodrigo respiratory failure with hypoxia, on [...] age 5 severe COPD by GOLD classification ([facility]) Inhale 2.5 mL via nebulizer 3 times a day. 270 mL 4 12/13/2019 Active levalbuterol (XOPENEX) 1.25 MG/3ML nebulizer solutionIndications:St age 3 severe COPD by GOLD classification ([facility]) Inhale 1 Ampule via nebulizer 3 [...] Telephone Encounter - Ligia Dewitt LPN - 12/20/2019 11:49 AM EDT Med list refaxed * Telephone Encounter - Sandra Rowley OSA - 12/20/2019 9:26 AM EDT Pt daughter Maria Isabel calling in stating that the fax was never received. Please advise and fax to the [phone]. * Telephone Encounter - Kristi Veras LPN - 12/19/2019 3:01 PM EDT Printed med list. Faxed to attn: jer * Telephone Encounter - Kristi River OSA - 12/19/2019 11:03 AM EDT Caller requesting the following information to be faxed: Name/Company of caller: patient Information requested to be faxed: Current list of medication Fax number: [phone] Attention to Name/Company: Jer Any additional information?: Needed to apply for PACE documented in this encounter Plan of Treatment Upcoming Encounters Date Type Specialty Care Team Description 08/05/2020 Pharmacy Svp Of Digital, Pharmacy Reimbursement [address] [place] [address] [phone] Health Maintenance Due Date Last Done Comments Zoster Vaccines (1 of 2) 1992 LUNG CANCER SCREENING YEARLY-USE SMARTSET [address] 06/23/2018 06/23/2017 Influenza Vaccine (FLU shot) (#1) [...] Documents on File Type Date Recorded Patient Lightning Protection Installer 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
--- OUTSIDE RECORDS SUMMARY | 2023-04-08 23:18 | External Medical Summary | Summary of Care ---
Author Name Unknown Organization [place] [address] Care Team Providers Care Oil And Gas Drafter Name Role Phone Lb Rod MD Primary Care Provide r Reason for Visit * Reason Comments eRx-Medication Refill Medication Refill Encounter Details Date Type Department Care Team Description 01/22/2020 Telephone Internal Medicine [address] [address] Abram Owens MD [address] [place] [address] [place] [id number] eRx-Medication Refill; Medication Refill Allergies No Known [...] 5 06/01/2018 Active folic acid 1 MG TabletIndications:Nickel Plater rodrigo respiratory failure with hypoxia, on home [...] Active predniSONE (DELTASONE) 10 MG TabletIndications:COPD exacerbation ([facility]) Take 5 tabs for 2 days, 4 tabs for 2 days, 3 tabs for 2 days, 2 tabs for 2 days 1 tab for 2 days 30 Tab 1 11/13/2019 Active amoxicillin-clavulanat e (AUGMENTIN) 875-125 MG per TabletIndications:COPD exacerbation ([facility]) Take 1 Tab by mouth every 12 hours. 20 Tab 1 11/13/2019 Active ipratropium (ATROVENT) 0.02 % nebulizer solutionIndications:St age 3 severe COPD by GOLD classification ([facility]) Inhale 2.5 mL via nebulizer 3 times a day. 270 mL 4 12/13/2019 Active levalbuterol (XOPENEX) 1.25 MG/3ML nebulizer solutionIndications:St age 3 severe COPD by GOLD classification ([facility]) Inhale 1 Ampule via nebulizer 3 [...] change prescription if appropriate. Thanks, Marylin Vides Senior Graphic Designer [facility] 01/26/2020, 3:47 PM * Telephone Encounter - Lb Rod MD - 01/23/2020 1:54 PM EDT Signed Prescriptions: Disp Refills predniSONE (DELTASONE) 20 MG Tablet 15 Tab 0 Sig: TAKE 2 TABLETS A DAY FOR 5 DAYS, THEN 1 TABLET A DAY FOR 5 DAYS Authorizing Provider: LB ROD * Telephone Encounter - Merced Choi [facility] - 01/23/2020 1:40 PM EDT Pending Prescriptions: Disp Refills predniSONE (DELTASONE) 20 MG Tablet [Phar*15 Tab 0 Sig: TAKE 2 TABLETS A DAY FOR 5 DAYS, THEN 1 TABLET A DAY FOR 5 DAYS * Telephone Encounter - Merced Choi [facility] - 01/23/2020 1:34 PM EDT In addition to refill, patient with COPD appears to be new to you. If you think patient would benefit from COPD [facility] pharmacist (new program), please route back to meand I will call patient to gauge his interest. If he is interested, I will pend the referral for you. Thank you, Merced Choi [facility] Clinical Pharmacist [employer] [phone] 01/23/2020, 1:37 PM * Telephone Encounter - Merced Choi [facility] - 01/23/2020 1:32 PM EDT Patient [facility] prednisone taper: [facility] to approve refills for this class of medication per refillprotocol. Please approve if appropriate. Thank you, Merced Choi [facility] Clinical Pharmacist [employer] [phone] 01/23/2020, 1:32 PM * Telephone Encounter - Merced Choi [facility] - 01/23/2020 1:29 PM EDT Pending [...] medication was ordered: 11/13/2019 Pharmacy: [facility], [facility] [place] ROSARIO Is this request for [...] Type Specialty Care Team Description 08/05/2020 Pharmacy Donor Relations Coordinator, Pharmacy Reimbursement [address] [facility] [place] [address] [phone] Health Maintenance Due Date Last Done Comments Zoster Vaccines (1 of 2) 1990 LUNG CANCER SCREENING YEARLY-USE SMARTSET 66334 06/23/2018 06/23/2017 Influenza Vaccine (FLU shot) (#1) [...] on File Type Date Recorded Patient Stage Technician 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
--- OUTSIDE RECORDS SUMMARY | 2023-04-08 23:18 | External Medical Summary | Summary of Care ---
Author Name Unknown Organization [place] [address] Care Team Providers Care Payment Rep Name Role Phone Alan Meyers MD Primary Care Provide r Reason for Visit * Reason Onset Date Comments Medication Refill 06/10/2020 Medication Refill 06/14/2020 Encounter Details Date Type Department Care Team Description 06/10/[address] [facility] [address] [facility] [place] [address] Alan Meyers MD [address] [facility] [place] [address] [phone] Severe chronic obstructive pulmonary disease (HCC) Allergies [...] ([facility]) Take 1 Tab by mouth daily. 90 Tab 1 03/26/2020 Active Amoxicillin-Pot Clavulanate 875-125 MG Oral TabletIndications:[place] PD exacerbation ([facility]) Take 1 Tab by mouth every 12 [...] filled previous rx and not new one Patient will check with pharmacy Thank you, Tommy Colón ([facility]) Taxicab Dispatcher III Retail Pharmacy Call Center 06/14/2020, 10:07 [...] appointment Last date the medication was ordered: [id number] Ragini Moon Enterprise Cloud Architect II Pharmacy Refill Call Center 18:27 AM Pharmacy: [id number] [address] [facility] Is this request for a controlled substance?No [...] Type Specialty Care Team Description 06/19/2020 Pharmacy Senior Piping Designer, Pharmacy Reimbursement [address] [place] [address] 08/05/2020 Pharmacy Senior Piping Designer, Pharmacy Reimbursement [address] [place] [address] Health Maintenance Due Date Last Done Comments Zoster Vaccines (1 of 2) 1992 LUNG CANCER SCREENING YEARLY-USE SMARTSET [address]8588 06/23/2018 06/23/2017 Influenza Vaccine (FLU shot) (#1) [...] Documents on File Type Date Recorded Patient Call Or Contact Centre Team Leader 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 Advanced Directive Advanced Directive
--- OUTSIDE RECORDS SUMMARY | 2023-04-08 23:18 | External Medical Summary | Summary of Care ---
Author Name Unknown Organization [place] [address] Care Team Providers Care Contact Center Rep Name Role Phone Alan Rod MD Primary Care Provide r Reason for Visit * Reason Onset Date Comments Medication Refill 03/26/2020 Folic acid Encounter Details Date Type Department Care Team Description 03/26/[address] [facility] [address] [facility] [place] [address] Alan Rod MD [address] [facility] [place] [address] [phone] Chronic respiratory failure with hypoxia, on home O2 therapy (HCC) Allergies No Known Active Allergiesdocumented as of this encounter (statuses as of 03/26/2020) Medications Medication Sig Dispensed Refills Start Date [...] home O2 therapy ([facility]) Take 1 Tab by mouth daily. 90 Tab 1 03/26/2020 Active folic acid 1 MG TabletIndications:Ch ronic respiratory failure with hypoxia, on home O2 therapy ([facility]) Take 1 Tab by mouth daily. 90 Tab 1 06/23/2019 0 Discontinue d(Refill) documented as of this encounter (statuses as of 03/26/2020) Active Problems Problem Noted Date Chronic respiratory failure with hypoxia , on home O2 therapy 12/03/2017 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 Authorizing Provider: ALAN ROD * Telephone Encounter - Lyssa Long MED ASSIST - 03/26/2020 2:23 PM EDT Pending Prescriptions: Disp Refills Folic Acid 1 MG Oral Tablet 90 Tab 1 Sig: Take 1 Tab by mouth daily. Last Office/Telemedicine Visit: 12/18/2019 Next Office Visit: No Future Appointments If no future appointments scheduled, and last appointment is greater than a year ago, please schedule patient for a follow-up appointment Last date the medication was ordered: 06/23/2019 Pharmacy: [facility][id number] [id number] [facility] Is this request for a [...] Type Specialty Care Team Description 08/05/2020 Pharmacy Cutter Finisher, Pharmacy Reimbursement [address] [facility] [place] [address] [phone] Health Maintenance Due Date Last Done Comments Zoster Vaccines (1 of 2) 1990 LUNG CANCER SCREENING YEARLY-USE SMARTSET 61118 06/23/2018 06/23/2017 Influenza Vaccine (FLU shot) (#1) [...] Documents on File Type Date Recorded Patient Logistics Administrator 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
--- OUTSIDE RECORDS SUMMARY | 2023-04-08 23:18 | External Medical Summary | Summary of Care ---
Author Name Unknown Organization [place] [address] Care Team Providers Care Caustic Room Operator Name Role Phone Alan Rod MD Primary Care Provide r Reason for Visit * Reason Onset Date Comments Medication Refill 06/10/2020 Encounter Details Date Type Department Care Team Description 06/10/2020 Refill Family Practice [facility] [address] [facility] [place] [address] Alan Rod MD [address] [employer] [place] [address] [phone] Severe chronic obstructive pulmonary disease (HCC) Allergies No Known Active Allergiesdocumented as of this encounter (statuses as of 06/10/2020) Medications Medication Sig Dispensed Refills Start Date [...] with food 90 Tab 1 06/10/2020 Active predniSONE (DELTASONE) 10 MG TabletIndications:Se abad chronic obstructive pulmonary disease (HCC) One daily with food 90 Tab 1 01/26/2020 Discontinue d(Refill) documented as of this encounter (statuses as of 06/10/2020) Active Problems Problem Noted Date Chronic respiratory failure with hypoxia , on home O2 therapy 12/03/2017 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 documented as of this encounter (statuses as of 06/10/2020) Resolved Problems Problem Noted Date Resolved Date [...] as of this encounter (statuses as of 06/10/2020) Immunizations Name Administration Dates Next Due PPD [...] Telephone Encounter - Alan Rod MD - 06/10/2020 9:58 AM EST Signed Prescriptions: Disp Refills predniSONE 10 MG Oral Tablet (DELTASONE) 90 Tab 1 Sig: One daily with food Authorizing Provider: ALAN ROD * Telephone Encounter - Ragini Chao CPhT [...] appointment Last date the medication was ordered: [id number] Ragini Moon Glass Cleaning Machine Tender II Pharmacy Refill Call Center 18:27 AM Pharmacy: [facility][id number] [id number] [facility] Is this request for a controlled [...] Type Specialty Care Team Description 08/05/2020 Pharmacy Optometrist Assistant, Pharmacy Reimbursement [address], [place] [id number] Health Maintenance Due Date Last Done Comments Zoster Vaccines (1 of 2) 1992 LUNG CANCER SCREENING YEARLY-USE SMARTSET [address]47[address] 06/23/2018 06/23/2017 Influenza Vaccine (FLU shot) (#1) [...] Documents on File Type Date Recorded Patient Ball Machine Operator 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
--- OUTSIDE RECORDS SUMMARY | 2023-04-08 23:18 | External Medical Summary | Summary of Care ---
Author Name Unknown Organization [place] [address] Care Team Providers Care Nitrate Operator Name Role Phone Alan Rod MD Primary Care Provide r Reason for Visit * Reason Comments eRx-Medication Refill Encounter Details Date Type Department Care Team Description 01/22/2020 Refill Internal Medicine [address] [address] Abram Owens MD [address] [place] [address] [place] [address] [phone] Allergies No Known Allergiesdocumented as of this encounter (statuses as of 01/23/2020) Medications Medication Sig Dispensed Refills Start Date [...] 5 06/01/2018 Active folic acid 1 MG TabletIndications:Cotton Roll Packer rodrigo respiratory failure with hypoxia, on home [...] ([facility]) Inhale 1 Ampule via nebulizer 3 times a day. 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 documented as of this encounter (statuses as of 01/23/2020) Resolved Problems Problem Noted Date Resolved Date [...] as of this encounter (statuses as of 01/23/2020) Immunizations Name Administration Dates Next Due PPD [...] ROD * Telephone Encounter - Merced Choi [facility] - 01/23/2020 1:40 PM EDT Pending Prescriptions: Disp Refills predniSONE (DELTASONE) 20 MG Tablet [Phar*15 Tab 0 Sig: TAKE 2 TABLETS A DAY FOR 5 DAYS, THEN 1 TABLET A DAY FOR 5 DAYS * Telephone Encounter - Merced Choi [facility] - 01/23/2020 1:34 PM EDT In addition to refill, patient with COPD appears to be new to you. If you think patient would benefit from COPD [facility] pharmacist (new program), please route back to meand I will call patient to gauge his interest. If he is interested, I will pend the referral for you. Thank you, Merced Choi [facility] Clinical Pharmacist Telepharmacy [phone] 01/23/2020, 1:37 PM * Telephone Encounter - Merced Choi [facility] - 01/23/2020 1:32 PM EDT [facility]one [facility]: [facility] refills for this class of medication per refillprotocol. Please approve if appropriate. Thank you, Merced Choi [facility] Clinical Pharmacist Telepharmacy [phone] 01/23/2020, 1:32 PM * Telephone Encounter - Merced Choi [facility] - 01/23/2020 1:29 PM EDT [...] date the medication was ordered: 11/13/2019 Pharmacy: [facility], [address] [place] Is this request for [...] Type Specialty Care Team Description 08/05/2020 Pharmacy Financial Aid Coordinator, Pharmacy Reimbursement [address] [place] [address] [phone] Health Maintenance Due Date Last Done Comments Zoster Vaccines (1 of 2) 1990 LUNG CANCER SCREENING YEARLY-USE SMARTSET [address] 06/23/2018 06/23/2017 Influenza Vaccine (FLU shot) (#1) [...] Documents on File Type Date Recorded Patient Churn Drill Operator 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
--- OUTSIDE RECORDS SUMMARY | 2023-04-08 23:18 | External Medical Summary | Summary of Care ---
Author Name Unknown Organization [place] [address] Care Team Providers Care Restaurant Delivery Driver Name Role Phone Alan Rod MD Primary Care Provide r Reason for Visit * Reason Comments eRx-Medication Refill Medication Refill Encounter Details Date Type Department Care Team Description 01/22/2020 Refill Internal Medicine [address] [address] Abram Owens MD [address] [place] [address] [place] [address] [phone] Severe chronic obstructive pulmonary disease (HCC) Allergies No Known Allergiesdocumented as of this encounter (statuses as of 01/29/2020) Medications Medication Sig Dispensed Refills Start Date [...] Stage 3 severe COPD by GOLD classification ([facility]) Inhale 2.5 mL via nebulizer 3 times a day. 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 documented as of this encounter (statuses as of 01/29/2020) Resolved Problems Problem Noted Date Resolved Date [...] as of this encounter (statuses as of 01/29/2020) Immunizations Name Administration Dates Next Due PPD [...] 01/26/2020 3:58 PM EDT [facility]. Please let pt know. * Telephone Encounter - Marylin Vides PHARM Tech - 01/26/2020 3:43 PM EDT pt's relative states that pt wants his prednisone change back to a 90 day supply once daily she states that he's older and cant remember certain things Please review and change prescription if appropriate. Thanks, Marylin Vides Director [facility] 01/26/2020, 3:47 PM * Telephone Encounter - Alan Rod MD - 01/23/2020 1:54 PM EDT Signed Prescriptions: Disp Refills predniSONE (DELTASONE) 20 MG Tablet 15 Tab 0 Sig: TAKE 2 TABLETS A DAY FOR 5 DAYS, THEN 1 TABLET A DAY FOR 5 DAYS Authorizing Provider: ALAN ROD * Telephone Encounter - Merced Choi [facility] - 01/23/2020 1:40 PM EDT Pending Prescriptions: Disp Refills predniSONE (DELTASONE) 20 MG Tablet [Phar*15 Tab 0 Sig: TAKE 2 TABLETS A DAY FOR 5 DAYS, THEN 1 TABLET A DAY FOR 5 DAYS * Telephone Encounter - Merced Choi [facility] - 01/23/2020 1:34 PM EDT In addition to refill, patient with COPD appears to be new to you. If you think patient would benefit from COPD [facility] pharmacist (new program), please route back to meand I will call patient to gauge his interest. If he is interested, I will pend the referral for you. Thank you, Merced Choi [facility] Clinical Pharmacist Telepharmsai [phone] 01/23/2020, 1:37 PM * Telephone Encounter - Merced Choi [facility] - 01/23/2020 1:32 PM EDT Patient requesting prednisone taper: Telepharmacy is currently not authorized to approve refills for this class of medication per refillprotocol. Please approve if appropriate. Thank you, Merced Choi [facility] Clinical Pharmacist Telepharmsai [phone] 01/23/2020, 1:32 PM * Telephone Encounter - Merced Choi [facility] - 01/23/2020 1:29 PM EDT [...] medication was ordered: 11/13/2019 Pharmacy: [facility], [address] [place] Is this request for [...] Type Specialty Care Team Description 08/05/2020 Pharmacy Blueprint Processor, Pharmacy Reimbursement [address] [facility] [place] [address] [phone] Health Maintenance Due Date Last Done Comments Zoster Vaccines (1 of 2) 1992 LUNG CANCER SCREENING YEARLY-USE SMARTSET 34008 06/23/2018 06/23/2017 Influenza Vaccine (FLU shot) (#1) [...] Documents on File Type Date Recorded Patient Vamp Seamer 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
--- OUTSIDE RECORDS SUMMARY | 2023-04-08 23:18 | External Medical Summary | Summary of Care ---
Author Name Unknown Organization [place] [address] Care Team Providers Care Licensed Dispensing Optician Name Role Phone Alan Rod MD Primary Care Provide r Reason for Visit * Reason Comments eRx-Medication Refill Medication Refill Encounter Details Date Type Department Care Team Description 01/22/2020 Refill Internal Medicine [address] [address] Abram Owens MD [address] [place] [address] [place] [id number] Severe chronic obstructive pulmonary disease (HCC) Allergies [...] Stage 3 severe COPD by GOLD classification ([facility]) Inhale 2.5 mL via nebulizer 3 times a day. 270 mL 4 12/13/2019 Active levalbuterol (XOPENEX) 1.25 MG/3ML nebulizer solutionIndications: Stage 3 severe COPD by GOLD classification ([facility]) Inhale 1 Ampule via nebulizer 3 times [...] encounter Miscellaneous Notes * Addendum Note - Alan Rod MD - 01/26/2020 3:58 PM EDT Addended by: ALAN ROD on: 01/26/2020 03:58 PM Modules accepted: Orders * Telephone Encounter - Alan Rod MD - 01/26/2020 3:58 PM EDT Rx sent to [facility]. Please let pt know. * Telephone Encounter - Marylin Vides, metal mockup maker - 01/26/2020 3:43 PM EDT pt's relative states that pt wants his prednisone change back to a 90 day supply once daily she states that he's older and cant remember certain things Please review and change prescription if appropriate. Thanks, Marylin Vides Nursery Hand [facility] 01/26/2020, 3:47 PM * Telephone Encounter - Alan Rod MD - 01/23/2020 1:54 PM EDT Signed Prescriptions: Disp Refills predniSONE (DELTASONE) 20 MG Tablet 15 Tab 0 Sig: TAKE 2 TABLETS A DAY FOR 5 DAYS, THEN 1 TABLET A DAY FOR 5 DAYS Authorizing Provider: ALAN ROD * Telephone Encounter - Merced Choi [facility] - 01/23/2020 1:40 PM EDT Pending Prescriptions: Disp Refills predniSONE (DELTASONE) 20 MG Tablet [Phar*15 Tab 0 Sig: TAKE 2 TABLETS A DAY FOR 5 DAYS, THEN 1 TABLET A DAY FOR 5 DAYS * Telephone Encounter - Merced Choi [facility] - 01/23/2020 1:34 PM EDT In addition to refill, patient with COPD appears to be new to you. If you think patient would benefit from COPD [facility] pharmacist (new program), please route back to meand I will call patient to gauge his interest. If he is interested, I will pend the referral for you. Thank you, Merced Choi [facility] Clinical Pharmacist Telepharmacy [phone] 01/23/2020, 1:37 PM * Telephone Encounter - Merced Choi [facility] - 01/23/2020 1:32 PM EDT Patient [facility] prednisone taper: [facility] to approve refills for this class of medication per refillprotocol. Please approve if appropriate. Thank you, Merced Choi [facility] Clinical Pharmacist Marisapharmsai [phone] 01/23/2020, 1:32 PM * Telephone Encounter - Merced Choi [facility] - 01/23/2020 1:29 PM EDT Pending Prescriptions: [...] date the medication was ordered: 11/13/2019 Pharmacy: [facility], [address] [place] Is this request for [...] Type Specialty Care Team Description 08/05/2020 Pharmacy Pet Sitting, Pharmacy Reimbursement [address] [facility] [place] [address] [phone] Health Maintenance Due Date Last Done Comments Zoster Vaccines (1 of 2) 1990 LUNG CANCER SCREENING YEARLY-USE SMARTSET [address]9880 06/23/2018 06/23/2017 Influenza Vaccine (FLU shot) (#1) [...] on File Type Date Recorded Patient Director Loss Prevention 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
--- OUTSIDE RECORDS SUMMARY | 2023-04-08 23:18 | External Medical Summary | Summary of Care ---
Author Name Unknown Organization [place] [address] Care Team Providers Care Layout Artist Name Role Phone Alan Rod MD Primary Care Provide r Reason for Visit * Reason Comments eRx-Medication Refill Medication Refill Encounter Details Date Type Department Care Team Description 01/22/2020 Refill Internal Medicine [address] [address] Abram Owens MD [address] [place] [address] [place] [id number] Severe chronic obstructive pulmonary disease (HCC) Allergies [...] Stage 3 severe COPD by GOLD classification ([facility]) Inhale 2.5 mL via nebulizer 3 times a day. 270 mL 4 12/13/2019 Active levalbuterol (XOPENEX) 1.25 MG/3ML nebulizer solutionIndications: Stage 3 severe COPD by GOLD classification ([facility] [...] 01/26/2020 3:58 PM EDT Rx sent to [facility]. Please let pt know. * Telephone Encounter - Marylin Vides, holter technician - 01/26/2020 3:43 PM EDT pt's relative states that pt wants his prednisone change back to a 90 day supply once daily she states that he's older and cant remember certain things Please review and change prescription if appropriate. Thanks, Marylin Vides Geological Drafter [facility] 01/26/2020, 3:47 PM * Telephone Encounter - Alan Rod MD - 01/23/2020 1:54 PM EDT Signed Prescriptions: Disp Refills predniSONE (DELTASONE) 20 MG Tablet 15 Tab 0 Sig: TAKE 2 TABLETS A DAY FOR 5 DAYS, THEN 1 TABLET A DAY FOR 5 DAYS Authorizing Provider: ALAN ROD * Telephone Encounter - Merced Choi [facility] - 01/23/2020 1:40 PM EDT Pending Prescriptions: Disp Refills predniSONE (DELTASONE) 20 MG Tablet [Phar*15 Tab 0 Sig: TAKE 2 TABLETS A DAY FOR 5 DAYS, THEN 1 TABLET A DAY FOR 5 DAYS * Telephone Encounter - Merced Choi [facility] - 01/23/2020 1:34 PM EDT In addition to refill, patient with COPD appears to be new to you. If you think patient would benefit from COPD [facility] pharmacist (new program), please route back to meand I will call patient to gauge his interest. If he is interested, I will pend the referral for you. Thank you, Merced Choi [facility] Clinical Pharmacist Telepharmacy [phone] 01/23/2020, 1:37 PM * Telephone Encounter - Merced Choi [facility] - 01/23/2020 1:32 PM EDT Patient [facility] prednisone taper: [facility] to approve refills for this class of medication per refillprotocol. Please approve if appropriate. Thank you, Merced Choi [facility] Clinical Pharmacist Marisapharmsai [phone] 01/23/2020, 1:32 PM * Telephone Encounter - Merced Choi [facility] - 01/23/2020 1:29 PM EDT [...] date the medication was ordered: 11/13/2019 Pharmacy: [facility], [address] [place] Is this request for [...] Type Specialty Care Team Description 08/05/2020 Pharmacy Clinical Social Work Aide, Pharmacy Reimbursement [address] [facility] [place] [address] [phone] Health Maintenance Due Date Last Done Comments Zoster Vaccines (1 of 2) 1992 LUNG CANCER SCREENING YEARLY-USE SMARTSET [address] 06/23/2018 06/23/2017 Influenza Vaccine (FLU shot) (#1) [...] Documents on File Type Date Recorded Patient Ssis Architect 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
--- OUTSIDE RECORDS SUMMARY | 2023-04-08 23:19 | External Medical Summary | Summary of Care ---
Author Name Unknown Organization [place] [address] Care Team Providers Care Wildlife Conservationist Name Role Phone Alan Meyers MD Primary Care Provide r Reason for Visit * Reason Comments Patient Assistance Program Encounter Details Date Type Department Care Team Description 11/23/2019 Pharmacy Pharmacy, [place] [address] [place] [address] Coordinator, Pharmacy [facility] [address], [place] [id number] Stage 3 severe COPD by GOLD classification ([facility])* Allergies No Known Allergiesdocumented as of this encounter (statuses as of 11/23/2019) Medications Medication Sig Dispensed Refills Start Date [...] Active ipratropium (ATROVENT) 0.02 % nebulizer solutionIndications: pollo chronic obstructive pulmonary disease ([facility]),Stage 3 severe COPD by GOLD classification ([facility]) Inhale 2.5 mL via nebulizer 3 times a day. 50 mL 0 04/25/2019 Active levalbuterol (XOPENEX) 1.25 MG/3ML nebulizer solutionIndications:Se pollo chronic obstructive pulmonary disease ([facility]),Stage 3 severe COPD by GOLD classification ([facility]) Use Three times daily 63 mL 0 04/25/2019 Active folic acid 1 MG TabletIndications:Pediatric Physician rodrigo respiratory failure with hypoxia, on home O2 therapy ([facility]) Take 1 Tab by mouth daily. 90 Tab 1 06/23/2019 Active predniSONE (DELTASONE) 10 MG TabletIndications:Molly re chronic obstructive pulmonary disease ([facility]) One daily with food 90 Tab 1 07/27/2019 Active levalbuterol (XOPENEX) 1.25 MG/3ML nebulizer solutionIndications:St age 3 severe COPD by GOLD classification ([facility]) Inhale 1 mL via nebulizer 3 times a day. 270 mL 5 08/27/2019 Active ipratropium (ATROVENT) 0.02 % nebulizer solutionIndications:St age 3 severe COPD by GOLD classification ([facility]) Inhale 2.5 mL via nebulizer 3 times a day. 270 mL 5 08/27/2019 Active fluticasone-salmeterol (ADVAIR DISKUS) 250-50 MCG/DOSE inhalerIndications:SOB [...] Active predniSONE (DELTASONE) 10 MG TabletIndications:COPD exacerbation ([facility]) Take 5 tabs for 2 days, 4 tabs for 2 days, 3 tabs for 2 days, 2 tabs for 2 days 1 tab for 2 days 30 Tab 1 11/13/2019 Active amoxicillin-clavulanat e (AUGMENTIN) 875-125 MG per TabletIndications:COPD exacerbation (HCC) Take 1 Tab by mouth every 12 hours. 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 Unable to assess 11/23/2019 12:18 PM EDT documented as of this encounter Progress Notes * Chele Gallardo OSA - 11/23/2019 12:23 PM EDT Received call from patient [phone] (home) Patient Phone Numbers Coverage: Medicare A and B (No D) Medication:Advair Diskus, Daliresp Patient's DIL Maria Isabel called [facility], looking for information when last refills were placed for Adviar and Daliresp PRC spoke to [employer] rep, last fill was shipped 09/20/2019. Rep placed refill with PRC today 11/23/2019. Order #[id number] RX number is [id number] Rep advised earliest the next fill may be placed is 01/27/2020. Rep advised patient may call [facility] Mary Nicolas as an authorized factory representative to speak on his behalf. PRC spoke to [employer] [place] rep, last shipment of Daliresp was delivered 10/26/2019. Advised next refill may be placed no earlier than 01/14/2020. Patient may also call [employer] [place] to pierce Nicolas as an authorized individual. [facility] spoke to Maria Isabel to make aware. JAH Manriquez Pharmaceutical Test Developer 11/23/2019, 12:49 PM documented in this encounter Plan of Treatment Upcoming Encounters Date Type Specialty Care Team Description 08/05/2020 Pharmacy Tank Worker, Pharmacy Reimbursement [address] [facility] [place] [address] [phone] Health Maintenance Due Date Last Done Comments Zoster Vaccines (1 of 2) 1992 LUNG CANCER SCREENING YEARLY-USE SMARTSET 16545 06/23/2018 06/23/2017 DIABETES SCREEN EVERY 3 YRS-AGE 45 AND ABOVE 12/27/2020 12/27/2017, 06/23/2017, 06/18/2017, Additional history exists DTaP,Tdap,and Td Vaccines (2 - Td) 10/21/2027 10/20/2017 Pneumococcal Vaccine: 65+ Years Completed 10/20/2017, 04/27/2017 Influenza Vaccine (FLU shot) Completed 11/2018, 02/28/2018, 03/12/2017, Additional history exists MENINGOCOCCAL (MENACTRA/MENVEO) Aged Out No longer eligible based on patient's age to complete this topic documented as of this encounter Implants Not on filedocumented as of this encounter Visit Diagnoses Diagnosis Stage 3 severe COPD by GOLD classification (HCC)- Primary documented in this encounter Advance Directives Documents on File Type Date Recorded Patient Linen Folder 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
--- OUTSIDE RECORDS SUMMARY | 2023-04-08 23:19 | External Medical Summary | Summary of Care ---
Author Name Unknown Organization [place] [address] Care Team Providers Care Production Machine Tender Name Role Phone Abram Owens MD Primary Care Provider + [phone] Reason for Visit * Reason Comments Update 3 month case managem ent assessment case management Encounter Details Date Type Department Care Team Description 10/05/2019 Medical Record Technician Telephone Care Coordination [address] [place], [place] [id number] Roseanne Emerson RN [address] [place] [address] [phone] Update (3 month case management assessment... Allergies No Known Allergiesdocumented as of this encounter (statuses as of 10/05/2019) Medications Medication Sig Dispensed Refills Start Date [...] 06/01/2018 Active ipratropium (ATROVENT) 0.02 % nebulizer solutionIndications:Se pollo chronic obstructive pulmonary disease ([facility]),Stage 3 severe COPD by GOLD classification ([facility]) Inhale 2.5 mL via nebulizer 3 times a day. 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 90 Tab 1 06/23/2019 Active predniSONE (DELTASONE) 10 MG TabletIndications:Molly re chronic obstructive pulmonary disease ([facility]) One daily with food 90 Tab 1 07/27/2019 Active levalbuterol (XOPENEX) 1.25 MG/3ML nebulizer solutionIndications:St age 3 severe COPD by GOLD classification ([facility]) Inhale 1 mL via nebulizer 3 times a day. 270 mL 5 08/27/2019 Active ipratropium (ATROVENT) 0.02 % nebulizer solutionIndications:St age 3 severe COPD by GOLD classification ([facility]) Inhale 2.5 mL via [...] or Wheezing. 18 g 5 09/27/2019 Active documented as of this encounter (statuses as of 10/05/2019) Active Problems Problem Noted Date Chronic respiratory failure with hypoxia , on home O2 therapy 12/03/2017 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 documented as of this encounter (statuses as of 10/05/2019) Resolved Problems Problem Noted Date Resolved Date [...] as of this encounter (statuses as of 10/05/2019) Immunizations Name Administration Dates Next Due PPD [...] have Coronavirus / COVID-19? Unable to assess 10/05/2019 11:02 AM EDT documented as of this encounter Miscellaneous Notes * Telephone Encounter - Roseanne Emerson RN - 10/05/2019 3:34 PM EDT 3 month case management assessment CHART REVIEW seems he is transferring care to Dr. Meyers at [facility] visit scheduled 11/13/19 PMH: COPD on chronic oxygen Pharmacy Reimbursement Coordinators working with patient for medications Sees [facility] 04/12/2019 last office visit doing well RTC 1 year spoke with patient he is alert, oriented and very cheerful and talkative "other than breathing, I'm doing really well." "If I don't move, my breathing is okay. If I walk back to the bathroom, oh my God, I have to take abreak in between." Occasional moist cough "I've had that for years and years" Does check pulse ox, and does note that occasionally he gets a high heart rate Does endorse chest pain off and on, various places and sides of his chest Lasts a good hour or so, eventually goes away. But did not get any with walking from car into the house today. Does check temperature daily, this AM 98.1F Eating and drinking well Denies GI/ complaints Denies any falls Sleeps in bed, does not need to prop himself up to breath, 2 pillows Explained/reinforced role of case assistant. Encouraged to call with any issues or concerns. Gave direct phone number and contact information. COPD:Pt instructed to: -Call with increased SOB, wheezing, chest tightness, increased cough, increased sputum with change in color or consistency and fever. -Wash hands often -Drink plenty of fluids -Use inhalers as directed, do not stop or skip doses -Avoid stress -Rest when tired or SOB -Avoid triggers -Clean inhalers once a week Offered sooner appointment for chest pain and patient declined. Reviewed when to call EMS: chest pain accompanied by cold, clammy sweat; nausea and/or vomiting; lightheaded or dizziness; worsening breathing, headache. Reviewed medications Reviewed upcoming appointments Roseanne Emerson RN MSN CCM [facility] Medical Home Float Medical Record Technician Covering for Fide Rehman RN CCM documented in this encounter Plan of Treatment Upcoming Encounters Date Type Specialty Care Team Description 11/13/2019 Office Visit Family Medicine Alan Meyers MD [address] [facility] [place] [address] [phone] 08/05/2020 Pharmacy [facility], Pharmacy Reimbursement [address] [facility] [place] [address] Health Maintenance Due Date Last Done Comments Zoster Vaccines (1 of 2) 1990 LUNG CANCER SCREENING YEARLY-USE SMARTSET 97645 06/23/2018 06/23/2017 *DEPRESSION SCREENING,ANNUAL FOR PTS 12 AND OVER 08/16/2019 DIABETES SCREEN EVERY 3 YRS-AGE 45 AND [...] Documents on File Type Date Recorded 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
--- OUTSIDE RECORDS SUMMARY | 2023-04-08 23:19 | External Medical Summary | Summary of Care ---
Author Name Unknown Organization [place] [address] Care Team Providers Care Signal Intelligence/Electronic Warfare Name Role Phone Alan Meyers MD Primary Care Provide r Reason for Visit * Reason Comments Patient Assistance Program Encounter Details Date Type Department Care Team Description 12/07/2019 Pharmacy Pharmacy, [place] [address] [place] [address] Coordinator, Pharmacy [facility] [address], [place] [id number] Stage 3 severe COPD by GOLD classification ([facility])* Allergies No Known Allergiesdocumented as of this encounter (statuses as of 12/07/2019) Medications Medication Sig Dispensed Refills Start Date [...] nebulizer solutionIndications: pollo chronic obstructive pulmonary disease ([facility]),Stage 3 severe COPD by GOLD classification ([facility]) Inhale 2.5 mL via nebulizer 3 times a day. 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 90 Tab 1 06/23/2019 Active predniSONE (DELTASONE) 10 MG TabletIndications:Molly re chronic obstructive pulmonary disease ([facility]) One daily with food 90 Tab 1 07/27/2019 Active levalbuterol (XOPENEX) 1.25 MG/3ML nebulizer solutionIndications:St age 3 severe COPD by GOLD classification ([facility]) Inhale 1 mL via nebulizer 3 times a day. 270 mL 5 08/27/2019 Active ipratropium (ATROVENT) 0.02 % nebulizer solutionIndications:St age 3 severe COPD by GOLD classification ([facility] [...] Active predniSONE (DELTASONE) 10 MG TabletIndications:COPD exacerbation ([facility]) Take 5 tabs for 2 days, 4 tabs for 2 days, 3 tabs for 2 days, 2 tabs for 2 days 1 tab for 2 days 30 Tab 1 11/13/2019 Active amoxicillin-clavulanat e (AUGMENTIN) 875-125 MG per TabletIndications:COPD exacerbation (HCC) Take 1 Tab by mouth every 12 hours. 20 Tab 1 11/13/2019 Active documented as of this encounter (statuses as of 12/07/2019) Active Problems Problem Noted Date Chronic respiratory failure with hypoxia , on home O2 therapy 12/03/2017 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 documented as of this encounter (statuses as of 12/07/2019) Resolved Problems Problem Noted Date Resolved Date [...] as of this encounter (statuses as of 12/07/2019) Immunizations Name Administration Dates Next Due PPD [...] have Coronavirus / COVID-19? Unable to assess 12/07/2019 2:15 PM EDT documented as of this encounter Progress Notes * Chele Gallardo OSA - 12/07/2019 2:19 PM EDT PRC received fax from [facility] services for [facility] Me PAP. PRC completed DUR and faxed to . Completed form scanned into [employer]. JAH Manriquez Pharmaceutical Heavy Equipment Engine Mechanic 12/07/2019, 2:20 PM documented in this encounter Plan of Treatment Upcoming Encounters Date Type Specialty Care Team Description 08/05/2020 Pharmacy [facility] Hand, Pharmacy Reimbursement [address] [place] [address] [phone] Health Maintenance Due Date Last Done Comments Zoster Vaccines (1 of 2) 1992 LUNG CANCER SCREENING YEARLY-USE SMARTSET 33800 06/23/2018 06/23/2017 Influenza Vaccine (FLU shot) (#1) [...] COPD by GOLD classification ([facility])- Primary documented in this encounter Advance Directives Documents on File Type Date Recorded Patient Gatekeeper 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
--- OUTSIDE RECORDS SUMMARY | 2023-04-08 23:19 | External Medical Summary | Summary of Care ---
Author Name Unknown Organization [place] [address] Care Team Providers Care Centrifugal Station Operator Name Role Phone Abram Owens MD Primary Care Provider + [phone] Reason for Visit * Reason Comments Update 3 month case managem ent assessment case management Encounter Details Date Type Department Care Team Description 10/05/2019 Dyno Technician Telephone Care Coordination [address], [place] [id number] Roseanne Emerson RN [address] [place] [address] [phone] Update (3 month case management assessment... Allergies [...] nebulizer solutionIndications:Se pollo chronic obstructive pulmonary disease ([facility]),Stage 3 severe COPD by GOLD classification ([facility]) Inhale 2.5 mL via nebulizer 3 times a day. 50 mL 0 04/25/2019 Active levalbuterol (XOPENEX) 1.25 MG/3ML nebulizer solutionIndications:Se pollo chronic obstructive pulmonary disease ([facility]),Stage 3 severe COPD by GOLD classification ([facility]) Use Three times daily 63 mL 0 04/25/2019 Active folic acid 1 MG TabletIndications:Motor Equipment Captain rodrigo respiratory failure with hypoxia, on home O2 therapy ([facility]) Take 1 Tab by mouth daily. 90 Tab 1 06/23/2019 Active predniSONE (DELTASONE) 10 MG TabletIndications:Molly re chronic obstructive pulmonary disease ([facility]) One daily with food 90 Tab 1 07/27/2019 Active levalbuterol (XOPENEX) 1.25 MG/3ML nebulizer solutionIndications:St age 3 severe COPD by GOLD classification ([facility]) Inhale 1 mL via nebulizer 3 times a day. 270 mL 5 08/27/2019 Active ipratropium (ATROVENT) 0.02 % nebulizer solutionIndications:St age 3 severe COPD by GOLD classification ([facility] [...] Encounter - Roseanne Emerson RN - 10/05/2019 3:57 PM EDT Enrolled in IVR COPD surveillance call scheduled for January 01, 2020 * Telephone Encounter - Roseanne Emerson RN - 10/05/2019 3:34 PM EDT 3 month case management assessment CHART REVIEW seems he is transferring care to Dr. Meyers at [facility] established visit scheduled 11/13/19 PMH: COPD on chronic oxygen Pharmacy Reimbursement Coordinators working with patient for medications Sees [facility] Pulmonology 04/12/2019 last office visit doing well [...] breath, 2 pillows Explained/reinforced role of case packer. Encouraged to call with any issues or [...] upcoming appointments Roseanne Emerson RN MSN CCM [facility] Medical Home Float Dyno Technician Covering for Fide Rehman RN [facility] documented in this encounter Plan of Treatment Upcoming Encounters Date Type Specialty Care Team Description 11/13/2019 Office Visit [facility] [address] [facility] [address] [phone] 08/05/2020 Pharmacy Conveyor Belt Repairer, Pharmacy Reimbursement [address], [place] [id number] Health Maintenance Due Date Last Done Comments Zoster Vaccines (1 of 2) 1990 LUNG CANCER SCREENING YEARLY-USE SMARTSET 64715 06/23/2018 06/23/2017 *DEPRESSION SCREENING,ANNUAL FOR PTS 12 [...] Documents on File Type Date Recorded Patient Junior Software Developer 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
--- OUTSIDE RECORDS SUMMARY | 2023-04-08 23:19 | External Medical Summary | Summary of Care ---
Author Name Unknown Organization [place] [address] Care Team Providers Care Transportation Department Head Name Role Phone Abram Owens MD Primary Care Provider + [phone] Reason for Visit * Reason Comments Med Request Encounter Details Date Type Department Care Team Description 10/31/2019 Telephone Internal Medicine [address] [address] Abram Owens MD [address] [place] [address] [phone] Med Request Allergies No Known Allergiesdocumented as of this encounter (statuses as of 10/31/2019) Medications Medication Sig Dispensed Refills Start Date [...] 06/01/2018 Active ipratropium (ATROVENT) 0.02 % nebulizer solutionIndications:S evere chronic obstructive pulmonary disease ([facility]),Stage 3 severe COPD by GOLD classification ([facility]) Inhale 2.5 mL via nebulizer 3 times a day. 50 mL 0 04/25/2019 Active levalbuterol (XOPENEX) 1.25 MG/3ML nebulizer solutionIndications:S evere chronic obstructive pulmonary disease ([facility]),Stage 3 severe COPD by GOLD classification ([facility]) Use Three times daily 63 mL 0 04/25/2019 Active folic acid 1 MG TabletIndications:Chr onic respiratory failure with hypoxia, on home O2 therapy ([facility]) Take 1 Tab by mouth daily. 90 Tab 1 06/23/2019 Active predniSONE (DELTASONE) 10 MG TabletIndications:Sev ere chronic obstructive pulmonary disease ([facility]) One daily with food 90 Tab 1 07/27/2019 Active levalbuterol (XOPENEX) 1.25 MG/3ML nebulizer solutionIndications:S tage 3 severe COPD by GOLD classification ([facility]) Inhale 1 mL via nebulizer 3 times a day. 270 mL 5 08/27/2019 Active ipratropium (ATROVENT) 0.02 % nebulizer solutionIndications:S tage 3 severe COPD by GOLD classification ([facility]) Inhale 2.5 mL via nebulizer 3 times a day. 270 mL 5 08/27/2019 Active fluticasone-salmetero l (ADVAIR DISKUS) 250-50 MCG/DOSE inhalerIndications:SO B (shortness of breath) Inhale 1 Puff by mouth 2 times a day. Brand necessary 3 Each 3 09/19/2019 Active Albuterol Sulfate (ALBUTEROL HFA) 108 (90 BASE) MCG/ACT inhalerIndications:SO B (shortness of breath) Inhale 2 Puffs by mouth every 4 hours as needed for Shortness of Breath or Wheezing. 18 g 5 09/27/2019 Active azithromycin (ZITHROMAX) 250 MG TabletIndications:Bro nchitis, complicated Take 2 tabs by mouth on the first day, then 1 tab daily on days two through five 6 Tab 0 10/31/2019 11/05/2019 Active documented as of this encounter (statuses as of 10/31/2019) Active Problems Problem Noted Date Chronic respiratory failure with hypoxia , on home O2 therapy 12/03/2017 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 documented as of this encounter (statuses as of 10/31/2019) Resolved Problems Problem Noted Date Resolved Date [...] as of this encounter (statuses as of 10/31/2019) Immunizations Name Administration Dates Next Due PPD [...] encounter Miscellaneous Notes * Telephone Encounter - Vicky Ruffin LPN - 10/31/2019 2:43 PM EDT Left message that prescription has been sent. * Telephone Encounter - Lia Hughes CPhT - 10/31/2019 1:23 PM EDT patient is requesting an antibiotic for green musca and a cough. See call details Pt phone: [phone] Thank you, Lia Hughes CPhT Content Engineer [employer] 10/31/2019, 1:25 PM documented in this encounter Plan of Treatment Upcoming Encounters Date Type Specialty Care Team Description 11/13/2019 Office Visit Family Medicine Alan Meyers MD [address] [facility] [place] [address] 08/05/2020 Pharmacy Feeder Catcher, Pharmacy Reimbursement [address] [facility] [place] [address] Health Maintenance Due Date Last Done Comments Zoster Vaccines (1 of 2) 1992 LUNG CANCER SCREENING YEARLY-USE SMARTSET 20965 06/23/2018 06/23/2017 *DEPRESSION SCREENING,ANNUAL FOR PTS 12 [...] as of this encounter Visit Diagnoses Diagnosis Bronchitis, complicated- Primary Bronchitis, not specified as acute or chronic documented in this encounter Advance Directives Documents on File Type Date Recorded Patient Chancery Clerk 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
--- OUTSIDE RECORDS SUMMARY | 2023-04-08 23:19 | External Medical Summary | Summary of Care ---
Author Name Unknown Organization [place] [address] Care Team Providers Care Crude Oil Treater Name Role Phone Abram Owens MD Primary Care Provider + [phone] Reason for Visit * Reason Comments NEW PATIENT get established Encounter Details Date Type Department Care Team Description 11/13/2019 Office Visit [facility] [address] [facility] [place] [address] Alan Meyers MD 132 [facility] [place] [address] [phone] Stage 3 severe COPD by GOLD classification ([facility])*; Chronic respiratory failure with hypoxia, on home O2 therapy ([facility]); History of tobacco use; Oxygen dependent; Gastroesophageal reflux disease with esophagitis; COPD exacerbation ([facility]) Allergies No Known Allergiesdocumented as of this encounter (statuses as of 11/13/2019) Medications Medication Sig Dispensed Refills Start Date [...] 0 Active famotidine (PEPCID AC) 10 MG TabletIndications:Shairf roesophageal reflux disease with esophagitis Take 1 Tab by mouth 2 times a day. 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 50 mL 0 04/25/2019 Active levalbuterol (XOPENEX) 1.25 MG/3ML nebulizer solutionIndications:Se pollo chronic obstructive pulmonary disease ([facility]),Stage 3 severe COPD by GOLD classification ([facility]) Use Three times daily 63 mL 0 04/25/2019 Active folic acid 1 MG TabletIndications:Fans Clerk rodrigo respiratory failure with hypoxia, on home O2 therapy ([facility]) Take 1 Tab by mouth daily. 90 Tab 1 06/23/2019 Active predniSONE (DELTASONE) 10 MG TabletIndications:Molly re chronic obstructive pulmonary disease ([facility]) One daily with food 90 Tab 1 07/27/2019 Active levalbuterol (XOPENEX) 1.25 MG/3ML nebulizer solutionIndications:St age 3 severe COPD by GOLD classification ([facility]) Inhale 1 mL via nebulizer 3 times a day. 270 mL 5 08/27/2019 Active ipratropium (ATROVENT) 0.02 % nebulizer solutionIndications:St age 3 severe COPD by GOLD classification ([facility] [...] as of this encounter (statuses as of 11/13/2019) Active Problems Problem Noted Date Chronic respiratory failure with hypoxia , on home O2 therapy 12/03/2017 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 documented as of this encounter (statuses as of 11/13/2019) Resolved Problems Problem Noted Date Resolved Date [...] as of this encounter (statuses as of 11/13/2019) Immunizations Name Administration Dates Next Due PPD [...] have Coronavirus / COVID-19? No / Unsure 11/13/2019 2:48 PM EDT documented as of this encounter Last Filed Vital Signs Vital Sign Reading Time Taken Comments Blood Pressure 136/70 11/13/2019 3:07 PM EDT Pulse 87 11/13/2019 3:07 PM EDT Temperature 37.1 C (98.8 F) 11/13/2019 3:07 PM ED T Respiratory Rate 18 11/13/2019 3:07 PM EDT Oxygen Saturation 97% 11/13/2019 3:07 PM EDT Inhaled Oxygen Concentration - - Weight 55.8 kg (123 lb) 11/13/2019 3:07 PM EDT Height 170.2 cm (5' 7") 11/13/2019 3:07 PM EDT Body Mass Index 19.26 11/13/2019 3:07 PM EDT documented in this encounter Progress Notes * Alan Meyers MD - 11/13/2019 4:14 PM EDT 11/13/2019 Author: Alan Meyers MD Assessment/Plan There are no discontinued medications. 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 (HCC) (primary encounter diagnosis) Plan: continue meds Encouraged decreased etoh use (J96.11, Z99.81) Chronic respiratory failure with hypoxia, on home O2 therapy ([facility]) Plan: (Z87.891) History of tobacco use Plan: (Z99.81) Oxygen dependent Plan: (K21.0) Gastroesophageal reflux disease with esophagitis Plan: continue pepcid (J44.1) COPD exacerbation (HCC) Plan: predniSONE (DELTASONE) 10 MG Tablet, amoxicillin-clavulanate (AUGMENTIN) 875-125 MG per Tablet OTC debrox for rt cerumen Patient and or guardian communicated understanding and agreement of treatment plan including medications and there common side effects if indicated. All questions answered. Follow-up: Return in about 3 months (around 02/13/2020), or if symptoms worsen or fail to improve. | Check-out note: Update PCP to me CC/HPI: Jer Abreu Jr. is a 78 year old male Chief Complaint Patient presents with NEW PATIENT get established Brief Clinical History Mr. Abreu is a 78 year old man last seen in Internal Medicine 4 months ago (06-30-19). He has h/o cardio respiratory failure, Chronic respiratory failure with hypoxia, on home O2 therapy ([facility]), COPD, and Stage 3 severe COPD by GOLD classification ([facility]). Nursing Notes: Ana Bynum, LARISA 11/13/19 0129 Signed New pt to get established in care here, was seen in [place]. Is frustrated with previous doctor. Has a lot of SOB, has pneumonia all the time. Wants ABX as he is coughing up green mucus. Transferring care I will be seeing his as well + SOB with minimal exertion + productive cough and wheezing for a few days Per pt, needs rescue kit Some decreased hearing Oxygen dept dirnks 4 beers a day Here iwth daughter Sees [facility] pulmonary Problem list: Patient Active Problem List Diagnosis Code ADVANCE DIRECTIVE INFORMATION History of tobacco use Z87.891 Edentulous K00.0 Stage 3 severe COPD by GOLD classification ([facility]) J44.9 Oxygen dependent Z99.81 Chronic respiratory failure with hypoxia, on home O2 therapy ([facility]) J96.11, Z99.81 Gastroesophageal reflux disease with esophagitis K21.0 Past Medical History: Past Medical History: Diagnosis Date Acute exacerbation of COPD with asthma ([facility]) 04/23/2017 [facility] Edentulous Gastroesophageal reflux disease with esophagitis Herpes zoster 01/11/2019 right neck and scalp Inflammation of sacroiliac joint (HCC) 04/24/05 Loss of teeth due to trauma, extraction, or periodontal disease Other abnormal glucose 04/23/05 glucose 156 Other abnormal glucose 02/22/08 glucose 167 Other disorders of vitreous 12/05 Posterior vitreous detachment OS Other specified disorders of rotator cuff syndrome of shoulder and allied disorders 05/10 right shoulder Pneumonia 06/13/2017 left basal infiltrate Pneumonia due to Pseudomonas (HCC) 05/20/2017 Severe chronic obstructive pulmonary disease ([facility]) 10/28/2016 severe by ATS criteria. [...] LENS PROSTH Left 06/26/2019 [facility] Medication List: Current Outpatient Medications Medication Sig Dispense Refill amoxicillin-clavulanate (AUGMENTIN) 875-125 MG per Tablet Take 1 Tab by mouth every 12 hours. 20 Tab 1 predniSONE (DELTASONE) 10 MG Tablet Take 5 tabs for 2 days, 4 tabs for 2 days, 3 tabs for 2 days, 2 tabs for 2 days 1 tab for 2 days 30 Tab 1 Albuterol Sulfate (ALBUTEROL HFA) 108 (90 BASE) MCG/ACT inhaler Inhale 2 Puffs by mouth every 4hours as needed for Shortness of Breath or Wheezing. 18 g 5 fluticasone-salmeterol (ADVAIR DISKUS) 250-50 MCG/DOSE inhaler Inhale 1 Puff by mouth 2 times aday. Brand necessary 3 Each 3 ipratropium (ATROVENT) 0.02 % nebulizer solution Inhale 2.5 mL via nebulizer 3 times a day. 270mL 5 predniSONE (DELTASONE) 10 MG Tablet One daily with food 90 Tab 1 folic acid 1 MG Tablet Take 1 Tab by mouth daily. 90 Tab 1 ipratropium (ATROVENT) 0.02 % nebulizer solution Inhale 2.5 mL via nebulizer 3 times a day. 50 mL 0 levalbuterol (XOPENEX) 1.25 MG/3ML nebulizer solution Use Three times daily 63 mL 0 roflumilast (DALIRESP) 500 MCG Tablet Take 500 mcg by mouth daily. Multiple Vitamins-Minerals (MULTIVITAMIN ADULTS) TABS Take by mouth daily. oxygen GAS Use 2 L/min(Oxygen) as directed continuous. Indications: Inc to 4LPM with ambulation/exertion THIAMINE (VITAMIN B-1) 100 MG Tablet Take 100 mg by mouth daily. levalbuterol (XOPENEX) 1.25 MG/3ML nebulizer solution Inhale 1 mL via nebulizer 3 times a day. 270 mL 5 famotidine (PEPCID AC) 10 MG Tablet Take 1 Tab by mouth 2 times a day. For heartburn 60 Tab 5 acetaminophen (TYLENOL) 500 MG Tablet Take 500 mg by mouth every 4 hours as needed for Pain. hydrocortisone acetate (ANUSOL-HC) 25 MG suppository Administer 25 mg into the rectum 2 times a dayas needed for Hemorrhoids. Allergies: Patient has no known allergies. Problem list, Past Medical History, Family history and social history reviewed and updated in [facility] EHR ROS: No nausea, vomiting or diarrhea. No chest pain No fevers, chill or night sweats. All other ROS examined in detail and are negative except as documented in HPI. Vitals: BP 136/70 | Pulse 87 | Temp (Src) 98.8 (Tympanic) | Resp 18 | Ht 5' 7" (1.702m) | Wt 123 lbs (55.792kg) | BMI 19.26 kg/m | BSA 1.62 m | SaO2 97% BMI: 19.26 kg/m Exam: General: alert, healthy and no distress Examined in wheelchair Using oxygen dypnsiec when speaking Head: Normocephalic, No masses, lesions, tenderness or abnormalities Ears: External ears normal, TM's Normal, R TM shiny and non-erythematous, L TM not visualized secondary to cerumen Heart: regular rate & rhythm, no murmurs and no gallops Lungs: chest symmetric with normal AP diameter, no chest deformities noted, no chest wall tenderness, lungs clear to auscultation Abdomen: abdomen soft, non-tender, no masses, no hepatosplenomegaly, no rebound or guarding Extremities: no edema, no clubbing, no cyanosis Assessment and plan located at the top of the page documented in this encounter Nursing Notes * Ana Bynum LPN - 11/13/2019 3:08 PM EDT New pt to get established in care here, was seen in [place]. Is frustrated with previous doctor. Has a lot of SOB, has pneumonia all the time. Wants ABX as he is coughing up green mucus. documented in this encounter Plan of Treatment Upcoming Encounters Date Type Specialty Care Team Description 08/05/2020 Pharmacy Casing Cooker, Pharmacy Reimbursement [address], [place] [id number] Health Maintenance Due Date Last Done Comments Zoster Vaccines (1 of 2) 1992 LUNG CANCER SCREENING YEARLY-USE SMARTSET 28987 06/23/2018 06/23/2017 *DEPRESSION SCREENING,ANNUAL FOR PTS 12 [...] severe COPD by GOLD classification (HCC)- Primary Chronic respiratory failure with hypoxia, on home O2 therapy (HCC) History of tobacco use Personal history of tobacco use, presenting hazards to health Oxygen dependent Dependence on supplemental oxygen Gastroesophageal reflux disease with esophagitis COPD exacerbation (HCC) Obstructive chronic bronchitis with exacerbation documented in this encounter Advance Directives Documents on File Type Date Recorded Patient Automatic Hemmer 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
--- OUTSIDE RECORDS SUMMARY | 2023-04-08 23:19 | External Medical Summary | Summary of Care ---
Author Name Unknown Organization [place] [address] Care Team Providers Care Molder Offbearer Name Role Phone Alan Meyers MD Primary Care Provide r Reason for Visit * Reason Comments Other Encounter Details Date Type Department Care Team Description 11/24/2019 Telephone Family Practice [facility] 132 [facility] [place] [address] Alan Meyers MD 132 [facility] [place] [address] [phone] Other Allergies No Known Allergiesdocumented as of this encounter (statuses as of 11/24/2019) Medications Medication Sig Dispensed Refills Start Date [...] nebulizer solutionIndications: pollo chronic obstructive pulmonary disease ([facility]),Stage 3 severe COPD by GOLD classification ([facility]) Inhale 2.5 mL via nebulizer 3 times a day. 50 mL 0 04/25/2019 Active levalbuterol (XOPENEX) 1.25 MG/3ML nebulizer solutionIndications:Se pollo chronic obstructive pulmonary disease ([facility]),Stage 3 severe COPD by GOLD classification ([facility]) Use Three times daily 63 mL 0 04/25/2019 Active folic acid 1 MG TabletIndications:Locomotive Engineer Electric rodrigo respiratory failure with hypoxia, on home O2 therapy ([facility]) Take 1 Tab by mouth daily. 90 Tab 1 06/23/2019 Active predniSONE (DELTASONE) 10 MG TabletIndications:Molly re chronic obstructive pulmonary disease ([facility]) One daily with food 90 Tab 1 07/27/2019 Active levalbuterol (XOPENEX) 1.25 MG/3ML nebulizer solutionIndications:St age 3 severe COPD by GOLD classification ([facility]) Inhale 1 mL via nebulizer 3 times [...] Active predniSONE (DELTASONE) 10 MG TabletIndications:COPD exacerbation ([facility]) Take 5 tabs for 2 days, 4 tabs for 2 days, 3 tabs for 2 days, 2 tabs for 2 days 1 tab for 2 days 30 Tab 1 11/13/2019 Active amoxicillin-clavulanat e (AUGMENTIN) 875-125 MG per TabletIndications:COPD exacerbation (HCC) Take 1 Tab by mouth every 12 hours. 20 Tab 1 11/13/2019 Active documented as of this encounter (statuses as of 11/24/2019) Active Problems Problem Noted Date Chronic respiratory failure with hypoxia , on home O2 therapy 12/03/2017 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 documented as of this encounter (statuses as of 11/24/2019) Resolved Problems Problem Noted Date Resolved Date [...] as of this encounter (statuses as of 11/24/2019) Immunizations Name Administration Dates Next Due PPD [...] Miscellaneous Notes * Telephone Encounter - Radha Lewis OSA - 11/24/2019 11:23 AM EDT Patient scheduled. * Telephone Encounter - Marsha Bacon OSA - 11/24/2019 9:00 AM EDT pts daughter in law wanted to know if she could have someone call Dr. Keller office to get pt in to have his ear cleaned out. She said he is up on [address]. Please advise. documented in this encounter Plan of Treatment Upcoming Encounters Date Type Specialty Care Team Description 11/25/2019 Office Visit Family Medicine [facility], [address], [place] [id number] 08/05/2020 Pharmacy Endodontist, Pharmacy Reimbursement [address] [facility] [place] [address] Health Maintenance Due Date Last Done Comments Zoster Vaccines (1 of 2) 1990 LUNG CANCER SCREENING YEARLY-USE SMARTSET 28284 06/23/2018 06/23/2017 DIABETES SCREEN EVERY 3 YRS-AGE [...] Documents on File Type Date Recorded Patient Supervisor Mold Shop 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
--- OUTSIDE RECORDS SUMMARY | 2023-04-08 23:19 | External Medical Summary | Summary of Care ---
Author Name Unknown Organization [place] [address] Care Team Providers Care Retail Delivery Driver Name Role Phone Alan Meyers MD Primary Care Provide r Reason for Visit * Reason Comments Medication Question Encounter Details Date Type Department Care Team Description 12/13/[address] [facility] [address] [facility] [place] [address] Alan Meyers MD 132 [place] [address] [phone] Medication Question Allergies No Known Allergiesdocumented as of this encounter (statuses as of 12/13/2019) Medications Medication Sig Dispensed Refills Start Date [...] nebulizer solutionIndications:Se pollo chronic obstructive pulmonary disease ([facility]),Stage 3 severe COPD by GOLD classification ([facility]) Inhale 2.5 mL via nebulizer 3 times a day. 50 mL 0 04/25/2019 Active levalbuterol (XOPENEX) 1.25 MG/3ML nebulizer solutionIndications:Se pollo chronic obstructive pulmonary disease ([facility]),Stage 3 severe COPD by GOLD classification ([facility]) Use Three times daily 63 mL 0 04/25/2019 Active folic acid 1 MG TabletIndications:Educational Speech Language Clinician rodrigo respiratory failure with hypoxia, on home O2 therapy ([facility]) Take 1 Tab by mouth daily. 90 Tab 1 06/23/2019 Active predniSONE (DELTASONE) 10 MG TabletIndications:Molly re chronic obstructive pulmonary disease ([facility]) One daily with food 90 Tab 1 07/27/2019 Active levalbuterol (XOPENEX) 1.25 MG/3ML nebulizer solutionIndications:St age 3 severe COPD by GOLD classification ([facility]) Inhale 1 mL via nebulizer 3 times a day. 270 mL 5 08/27/2019 Active ipratropium (ATROVENT) 0.02 % nebulizer solutionIndications:St age 3 severe COPD by GOLD classification ([facility] [...] Active predniSONE (DELTASONE) 10 MG TabletIndications:COPD exacerbation ([facility]) Take 5 tabs for 2 days, 4 tabs for 2 days, 3 tabs for 2 days, 2 tabs for 2 days 1 tab for 2 days 30 Tab 1 11/13/2019 Active amoxicillin-clavulanat e (AUGMENTIN) 875-125 MG per TabletIndications:COPD exacerbation (HCC) Take 1 Tab by mouth every 12 hours. 20 Tab 1 11/13/2019 Active documented as of this encounter (statuses as of 12/13/2019) Active Problems Problem Noted Date Chronic respiratory failure with hypoxia , on home O2 therapy 12/03/2017 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 documented as of this encounter (statuses as of 12/13/2019) Resolved Problems Problem Noted Date Resolved Date [...] as of this encounter (statuses as of 12/13/2019) Immunizations Name Administration Dates Next Due PPD [...] Miscellaneous Notes * Telephone Encounter - Zac Horne PHARM Tech - 12/13/2019 12:37 PM EDT Pt contact called stating [facility] closed and now pt has no place to get scripts filled. Advised pt contact to call around to different pharmacies in area to check prices. Thank You, Zac Horne Rn [facility] 12/13/2019, 12:38 PM documented in this encounter Plan of Treatment Upcoming Encounters Date Type Specialty Care Team Description 08/05/2020 Pharmacy Legal Billing Analyst, Pharmacy Reimbursement [address] [place] [address] Health Maintenance Due Date Last Done Comments Zoster Vaccines (1 of 2) 1990 LUNG CANCER SCREENING YEARLY-USE SMARTSET 23238 06/23/2018 06/23/2017 Influenza Vaccine (FLU shot) (#1) [...] on File Type Date Recorded Patient Assembler Brazer 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
--- OUTSIDE RECORDS SUMMARY | 2023-04-08 23:19 | External Medical Summary | Summary of Care ---
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 270 mL 4 12/13/2019 Active levalbuterol (XOPENEX) 1.25 MG/3ML nebulizer solutionIndications:St age 3 severe COPD by GOLD classification ([facility]) Inhale 1 Ampule via nebulizer 3 times a day. 270 mL 4 12/13/2019 Active documented as of this encounter (statuses as of 12/14/2019) Active Problems Problem Noted Date Chronic respiratory failure with hypoxia , on home O2 therapy 12/03/2017 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 documented as of this encounter (statuses as of 12/14/2019) Resolved Problems Problem Noted Date Resolved Date [...] as of this encounter (statuses as of 12/14/2019) Immunizations Name Administration Dates Next Due PPD [...] have Coronavirus / COVID-19? Unable to assess 12/14/2019 12:36 PM EDT documented as of this encounter Progress Notes * Chele Gallardo OSA - 12/14/2019 12:44 PM EDT PRC received refill fax form for Proair HFA, [employer] PAP. PRC completed form and faxed to [facility] at . Form scanned into [employer] and DA. JAH Manriquez Pharmaceutical Shipping Technician 12/14/2019, 12:45 PM documented in this encounter Plan of Treatment Upcoming Encounters Date Type Specialty Care Team Description 08/05/2020 Pharmacy Director Of Strategic Communications, Pharmacy Reimbursement [address] [place] [address] Health Maintenance Due Date Last Done Comments Zoster Vaccines (1 of 2) 1990 LUNG CANCER SCREENING YEARLY-USE SMARTSET [id number] 06/23/2018 06/23/2017 Influenza Vaccine (FLU shot) (#1) [...] Documents on File Type Date Recorded Patient Regional Safety Manager 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
--- OUTSIDE RECORDS SUMMARY | 2023-04-08 23:19 | External Medical Summary | Summary of Care ---
Author Name Unknown Organization [place] [address] Care Team Providers Care Plugger Name Role Phone Alan Meyers MD Primary Care Provide r Reason for Visit * Reason Comments Other Encounter Details Date Type Department Care Team Description 12/13/[address] [facility] [address] [facility] [place] [address] Alan Meyers MD [address] [facility] [place] [address] [phone] Other Allergies No Known Allergiesdocumented as of [...] 1 06/23/2019 Active predniSONE (DELTASONE) 10 MG TabletIndications:Se pollo chronic obstructive pulmonary disease (HCC) One daily with food 90 Tab 1 07/27/2019 Active fluticasone-salmeter ol (ADVAIR DISKUS) 250-50 MCG/DOSE [...] a day. 270 mL 4 12/13/2019 Active ipratropium (ATROVENT) 0.02 % nebulizer solutionIndications: Severe chronic obstructive pulmonary disease (HCC),Stage 3 severe COPD by GOLD classification ([facility]) Inhale 2.5 mL via nebulizer 3 times a day. 50 mL 0 04/25/2019 07/08/202 0 Discontinue d(Refill) levalbuterol (XOPENEX) 1.25 MG/3ML nebulizer solutionIndications: Severe chronic obstructive pulmonary disease (HCC),Stage 3 severe COPD by GOLD classification ([facility]) Use Three times daily 63 mL 0 04/25/2019 0 Discontinue d(Refill) levalbuterol (XOPENEX) 1.25 MG/3ML nebulizer solutionIndications: Stage 3 severe COPD by GOLD classification ([facility]) Inhale 1 mL via nebulizer 3 times a day. 270 mL 5 08/27/2019 0 Discontinue d(Refill) ipratropium (ATROVENT) 0.02 % nebulizer solutionIndications: Stage 3 severe COPD by GOLD classification ([facility]) Inhale 2.5 mL via nebulizer 3 times a day. 270 mL 5 08/27/2019 0 Discontinue d(Refill) documented as of this [...] encounter Miscellaneous Notes * Telephone Encounter - Marcela Cassidy, consultant luxury and auto. vice president [employer] (ex ) - 12/13/2019 1:29 PM EDT Please reroute RX to [facility], [facility] JIMMIE ROSARIO Pending Prescriptions: Disp Refills ipratropium (ATROVENT) 0.02 % nebulizer s*270 mL 5 Sig: Inhale 2.5 mL via nebulizer 3 times a day. levalbuterol (XOPENEX) 1.25 MG/3ML nebuli*270 mL 5 Sig: Inhale 1 mL via nebulizer 3 times a day. Last Office/Telemedicine Visit: 11/13/2019 Next Office Visit: No Future Appointments If no future appointments scheduled, and last appointment is greater than a year ago, please schedule patient for a follow-up appointment Last date the medication was ordered: 08/27/2019 Patient Phone Numbers Labs: Lab Results Component Value Date/Time CREAT 0.79 12/27/2017 CREAT 1.1 06/18/2017 09:59 AM POTASSIUM 3.8 06/18/2017 09:59 AM TSH 1.06 08/30/2006 11:56 AM LDLCALC 74 02/17/2008 03:12 PM ALT 23 02/17/2008 03:12 PM HGBA1C 5.7 08/30/2006 11:56 AM documented in this encounter Plan of Treatment Upcoming Encounters Date Type Specialty Care Team Description 08/05/2020 Pharmacy News [place], Pharmacy Reimbursement [address] [place] [address] Health Maintenance Due Date Last Done Comments Zoster Vaccines (1 of 2) 1992 LUNG CANCER SCREENING YEARLY-USE SMARTSET 66880 06/23/2018 06/23/2017 Influenza Vaccine (FLU shot) (#1) [...] Documents on File Type Date Recorded Patient Visitor Services Representative 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
--- OUTSIDE RECORDS SUMMARY | 2023-04-08 23:20 | External Medical Summary | Summary of Care ---
Author Name Unknown Organization [place] [address] Care Team Providers Care Medical Technical Writer Name Role Phone Abram Owens MD Primary Care Provider [phone] Reason for Visit * Reason Comments Other fax Encounter Details Date Type Department Care Team Description 09/20/2019 Telephone Internal Medicine [address] [address] Abram Owens MD [address] [place] [address] [phone] Other (fax) Allergies No Known Allergiesdocumented as of this encounter (statuses as of 09/26/2019) Medications Medication Sig Dispensed Refills Start Date End Date Status THIAMINE (VITAMIN B-1) 100 MG Tablet Take 100 mg by mouth daily. 0 04/29/2017 Active albuterol (PROAIR HFA) 108 (90 BASE) MCG/ACT inhalerIndications:SO B (shortness of breath) Inhale 2 Puffs by mouth every 4 hours as needed for Shortness of Breath or Wheezing. 1 Inhaler 5 04/30/2017 Active oxygen GASIndications:Inc to 4LPM with ambulation/exertion [...] nebulizer solutionIndications:S evere chronic obstructive pulmonary disease ([facility]),Stage 3 severe COPD by GOLD classification ([facility]) Inhale 2.5 mL via nebulizer 3 times a day. 50 mL 0 04/25/2019 Active levalbuterol (XOPENEX) 1.25 MG/3ML nebulizer solutionIndications:S evere chronic obstructive pulmonary disease ([facility]),Stage 3 severe COPD by GOLD classification ([facility]) Use Three times daily 63 mL 0 04/25/2019 Active folic acid 1 MG TabletIndications:Chr onic respiratory failure with hypoxia, on home O2 therapy ([facility]) Take 1 Tab by mouth daily. 90 Tab 1 06/23/2019 Active predniSONE (DELTASONE) 10 MG TabletIndications:Sev ere chronic obstructive pulmonary disease ([facility]) One daily with food 90 Tab 1 07/27/2019 Active levalbuterol (XOPENEX) 1.25 MG/3ML nebulizer solutionIndications:S tage 3 severe COPD by GOLD classification ([facility]) Inhale 1 mL via nebulizer 3 times a day. 270 mL 5 08/27/2019 Active ipratropium (ATROVENT) 0.02 % nebulizer solutionIndications:S tage 3 severe COPD by GOLD classification ([facility]) Inhale 2.5 mL via nebulizer 3 times a day. 270 mL 5 08/27/2019 Active fluticasone-salmetero l (ADVAIR DISKUS) 250-50 MCG/DOSE inhalerIndications:SO B (shortness of breath) Inhale 1 Puff by mouth 2 times a day. Brand necessary 3 Each 3 09/19/2019 Active documented as of this encounter (statuses as of 09/26/2019) Active Problems Problem Noted Date Chronic respiratory failure with hypoxia , on home O2 therapy 12/03/2017 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 documented as of this encounter (statuses as of 09/26/2019) Resolved Problems Problem Noted Date Resolved Date [...] as of this encounter (statuses as of 09/26/2019) Immunizations Name Administration Dates Next Due PPD [...] have Coronavirus / COVID-19? Unable to assess 09/26/2019 8:49 AM EDT documented as of this encounter Miscellaneous Notes * Telephone Encounter - Ligia Connors LPN - 09/26/2019 1:03 PM EDT Form faxed * Telephone Encounter - Ligia Connors LPN - 09/26/2019 8:12 AM EDT Talked to Bautista and he is faxing it today * Telephone Encounter - Louise Miramontes OSA - 09/25/2019 10:19 AM EDT Pt's daughter calling in regards to request below. She is asking for a return phone call today to discuss. Please advise at [phone] * Telephone Encounter - Ligia Connors LPN - 09/21/2019 5:18 PM EDT Called [employer]ara and took information will call Bautista at [phone] or [phone] to have forms faxedto [phone] * Telephone Encounter - Thao Figueroa OSA - 09/21/2019 3:47 PM EDT Patient's daughter Tiara calling to check on status of fax. Tiara states that REJI faxed the paper 3 times in August and 1 time in September. Tiara would like a return call as soon as possible because this needs completed and faxed immediately. Tiara states that the patient needs his breathers and he can't get them without the form. Please return call to Tiara at [phone]. * Telephone Encounter - Marylin Harden OSA - 09/21/2019 9:38 AM EDT Tiara, daughter, calling stating that it needs to be faxed to [phone]. She provided the incorrect fax number previously. * Telephone Encounter - Jackelyn Soriano OSA - 09/21/2019 9:17 AM EDT Patient's daughter calling again to see if fax was received from Bautista at [employer]. This is a form needed for the patient's Albuterol inhaler. Please advise Tiara if this was received. Tiara states that Bautista from [employer] had faxed this form 2 times in August and had never received it back. Verified that it was being sent to the correct fax number. * Telephone Encounter - Dahlia Harris OSA - 09/20/2019 1:49 PM EDT Pts daughter in law is asking for us to watch for a fax from [employer] [facility]. This needs to be signed by Dr. Owens and faxed back. Tiara is asking for a call back when this is completed. documented in this encounter Plan of Treatment Upcoming Encounters Date Type Specialty Care Team Description 09/28/2019 Pharmacy Collective Bargaining Specialist, Pharmacy Reimbursement [address] [place] [address] 10/05/2019 Pharmacy Collective Bargaining Specialist, Pharmacy Reimbursement [address] [place] [address] 11/13/2019 Office Visit Family Medicine Alan Meyers MD [address] [place] [address] [phone] Health Maintenance Due Date Last Done Comments Zoster Vaccines (1 of 2) 1990 LUNG CANCER SCREENING YEARLY-USE SMARTSET 15609 06/23/2018 06/23/2017 *DEPRESSION SCREENING,ANNUAL FOR PTS 12 [...] Documents on File Type Date Recorded Patient Deposit Clerk 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
--- OUTSIDE RECORDS SUMMARY | 2023-04-08 23:20 | External Medical Summary | Summary of Care ---
Author Name Unknown Organization [place] [address] Care Team Providers Care Lead Manufacturing Engineering Tech Name Role Phone Abram Owens MD Primary Care Provider [phone] Reason for Visit * Reason Comments Patient Assistance Program Encounter Details Date Type Department Care Team Description 09/13/2019 Pharmacy Pharmacy, [place] [address] [place], [place] [id number] Coordinator, Pharmacy Reimbursement [address] [address], [place] [id number] Stage 3 severe COPD by GOLD classification (HCC)* Allergies No Known Allergiesdocumented as of this encounter (statuses as of 09/13/2019) Medications Medication Sig Dispensed Refills Start Date End Date Status THIAMINE (VITAMIN B-1) 100 MG Tablet Take 100 mg by mouth daily. 0 04/29/2017 Active albuterol (PROAIR HFA) 108 (90 BASE) MCG/ACT inhalerIndications:S OB [...] Puff by mouth 2 times a day. 3 Disk Dosing Unit 3 08/18/2018 Active ipratropium (ATROVENT) 0.02 % nebulizer solutionIndications: Severe chronic obstructive pulmonary disease (HCC),Stage 3 severe COPD by GOLD classification ([facility]) Inhale 2.5 mL via nebulizer 3 times a day. 50 mL 0 04/25/2019 Active levalbuterol (XOPENEX) 1.25 MG/3ML nebulizer solutionIndications: Severe chronic obstructive pulmonary disease (HCC),Stage 3 severe COPD by GOLD classification ([facility]) Use Three times daily 63 mL 0 04/25/2019 Active folic acid 1 MG TabletIndications:Ch ronic respiratory failure with hypoxia, on home O2 therapy ([facility]) Take 1 Tab by mouth daily. 90 Tab 1 06/23/2019 Active predniSONE (DELTASONE) 10 MG TabletIndications:Se pollo chronic obstructive pulmonary disease ([facility]) One daily with food 90 Tab 1 07/27/2019 Active levalbuterol (XOPENEX) 1.25 MG/3ML nebulizer solutionIndications: Stage 3 severe COPD by GOLD classification ([facility]) Inhale 1 mL via nebulizer 3 times a day. 270 mL 5 08/27/2019 Active ipratropium (ATROVENT) 0.02 % nebulizer solutionIndications: Stage 3 severe COPD by GOLD classification ([facility]) Inhale 2.5 mL via nebulizer 3 times a day. 270 mL 5 08/27/2019 Active documented as of this encounter (statuses as of 09/13/2019) Active Problems Problem Noted Date Chronic respiratory failure with hypoxia , on home O2 therapy 12/03/2017 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 documented as of this encounter (statuses as of 09/13/2019) Resolved Problems Problem Noted Date Resolved Date [...] as of this encounter (statuses as of 09/13/2019) Immunizations Name Administration Dates Next Due PPD [...] krystle brown. documented as of this encounter Progress Notes * Chele Gallardo OSA - 09/13/2019 2:09 PM EDT Completed GSK and [employer] applications for [employer] and proof of income were received on 09/13/2019. The GSK documents were forwarded to Abram Owens MD to sign and submit to the company. If the patient is approved by the program, a 90 day supply of this medication should arrive at [address] [place] [address] in approximately 30 days. Follow up GSK 09/28/2019. The [employer] documents were already signed by Abram Owens MD. [facility] faxed all documents to [employer] If the patient is approved by the program, a 90 day supply of this medication should arrive at [address] [place] [address] in approximately 30 days. Follow up [employer] 09/28/2019 JAH Manriquez Pharmaceutical Residential Appraiser 09/13/2019, 3:06 PM documented in this encounter Plan of Treatment Upcoming Encounters Date Type Specialty Care Team Description 09/28/2019 Pharmacy Multi Operation Machine Operator, Pharmacy Reimbursement [address] [facility] [place] [address] [phone] Health Maintenance Due Date Last Done Comments Zoster Vaccines (1 of 2) 1992 LUNG CANCER SCREENING YEARLY-USE SMARTSET 49053 06/23/2018 06/23/2017 *DEPRESSION SCREENING,ANNUAL FOR PTS 12 [...] Documents on File Type Date Recorded Patient Adjunct Spanish Instructor 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
--- OUTSIDE RECORDS SUMMARY | 2023-04-08 23:20 | External Medical Summary | Summary of Care ---
Author Name Unknown Organization [place] [address] Care Team Providers Care Molding Line Operator Name Role Phone Abram Owens MD Primary Care Provider [phone] Reason for Visit * Reason Comments Patient Assistance Program Encounter Details Date Type Department Care Team Description 09/05/2019 Pharmacy Pharmacy, [place] [address] [place], [place] [phone] Coordinator, Pharmacy Reimbursement [address] [place], [place] [id number] Stage 3 severe COPD by GOLD classification (HCC)* Allergies No Known Allergiesdocumented as of this encounter (statuses as of 08/15/2019) Medications Medication Sig Dispensed Refills Start Date [...] Stage 3 severe COPD by GOLD classification ([facility]) Inhale 2.5 mL via nebulizer 3 times a day. 270 mL 5 04/25/2019 Active levalbuterol (XOPENEX) 1.25 MG/3ML nebulizer solutionIndications: Stage 3 severe COPD by GOLD classification ([facility]) Inhale 1 mL via nebulizer 3 times a day. 270 mL 5 04/25/2019 Active ipratropium (ATROVENT) 0.02 % nebulizer solutionIndications: Severe chronic obstructive pulmonary disease (HCC),Stage 3 severe COPD by GOLD classification ([facility]) Inhale 2.5 mL via nebulizer 3 times a day. 50 mL 0 04/25/2019 Active levalbuterol (XOPENEX) 1.25 MG/3ML nebulizer solutionIndications: Severe chronic obstructive pulmonary disease (HCC),Stage 3 severe COPD by GOLD classification ([facility]) Use Three times daily 63 mL 0 04/25/2019 Active folic acid 1 MG TabletIndications:Ch ronic respiratory failure with hypoxia, on home O2 therapy ([facility]) Take 1 Tab by mouth daily. 90 Tab 1 06/23/2019 Active predniSONE (DELTASONE) 10 MG TabletIndications:Se pollo chronic obstructive pulmonary disease ([facility]) One daily with food 90 Tab 1 07/27/2019 Active documented as of this encounter (statuses as of 08/15/2019) Active Problems Problem Noted Date Chronic respiratory failure with hypoxia , on home O2 therapy 12/03/2017 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 documented as of this encounter (statuses as of 08/15/2019) Resolved Problems Problem Noted Date Resolved Date [...] as of this encounter (statuses as of 08/15/2019) Immunizations Name Administration Dates Next Due PPD [...] krystle ilable. documented as of this encounter Progress Notes * Chele Gallardo OSA - 08/09/2019 8:30 AM EST Follow up needs made to patient [phone] (home) , Patient Phone Numbers Coverage:Medicare A and B (No D) RX:Daliresp, Proair HFA, Advair Diskus Provider:Abram Owens MD Please call patient to verify status of [employer], [employer] Cares, GSK PAP applications. Forms sent: 08/09/2019 to patient's son JAH Manriquez [facility] Clinic Office Assistant 08/09/2019, 8:31 AM [facility] spoke to [employer], applications were received. They will complete and mail back to [facility] after receiving updated POI. JAH Manriquez Pharm[facility] Clinic Office Assistant 08/15/2019, 10:22 AM documented in this encounter Plan of Treatment Health Maintenance Due Date Last Done Comments Zoster Vaccines (1 of 2) 1990 LUNG CANCER SCREENING YEARLY-USE SMARTSET 99827 06/23/2018 06/23/2017 DIABETES SCREEN EVERY 3 YRS-AGE [...] Documents on File Type Date Recorded Patient Booth Supervisor 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
--- OUTSIDE RECORDS SUMMARY | 2023-04-08 23:20 | External Medical Summary | Summary of Care ---
Author Name Unknown Organization [place] [address] Care Team Providers Care Airplane Rental Clerk Name Role Phone Abram Owens MD Primary Care Provider [phone] Reason for Visit * Reason Comments Patient Assistance Program Encounter Details Date Type Department Care Team Description 10/05/2019 Pharmacy Pharmacy, [place] [address] [place], [place] [phone] Coordinator, Pharmacy [facility] [address] [place], [place] [id number] Stage 3 severe COPD by GOLD classification [...] nebulizer solutionIndications: pollo chronic obstructive pulmonary disease ([facility]),Stage 3 severe COPD by GOLD classification ([facility]) Inhale 2.5 mL via nebulizer 3 times a day. 50 mL 0 04/25/2019 Active levalbuterol (XOPENEX) 1.25 MG/3ML nebulizer solutionIndications:Se pollo chronic obstructive pulmonary disease ([facility]),Stage 3 severe COPD by GOLD classification ([facility]) Use Three times daily 63 mL 0 04/25/2019 Active folic acid 1 MG TabletIndications:Barrow Worker rodrigo respiratory failure with hypoxia, on home O2 therapy ([facility]) Take 1 Tab by mouth daily. 90 Tab 1 06/23/2019 Active predniSONE (DELTASONE) 10 MG TabletIndications:Molly re chronic obstructive pulmonary disease ([facility]) One daily with food 90 Tab 1 07/27/2019 Active levalbuterol (XOPENEX) 1.25 MG/3ML nebulizer solutionIndications:St age 3 severe COPD by GOLD classification ([facility]) Inhale 1 mL via nebulizer [...] AM EDT documented as of this encounter Progress Notes * Chele Gallardo OSA - 09/26/2019 8:50 AM EDT Follow up needs made to company Coverage:Medicare A and B (No D) Patient ID: [id number] [facility] [id number] Patient Phone Numbers RX:Proair HFA Dose: 108 Quanity 3 Provider:Abram Owens MD Please call [employer] to verify status of application. Phone number: [phone] Forms sent to provider:Faxed 09/26/2019 JAH Manriquez Pharmaceutical Relief Map Modeler 09/26/2019, 8:51 AM Patient approved for Proair HFA assistance, enrollment expires 09/28/2019. [employer] will fax [facility]ill [facility] to [facility]. [facility] LMOM for Maria Isabel to make aware to to return call. [facility] sent refill instructions for GSK and Az and Me to Maria Isabel. JAH Manriquez Pharmaceutical Relief Map Modeler 10/05/2019, 11:04 AM documented in this encounter Plan of Treatment Upcoming Encounters Date Type Specialty Care Team Description 11/13/2019 Office Visit Family Medicine Alan Meyers MD [address] [facility] [place] [address] [phone] 08/05/2020 Pharmacy Lockstitch Sleeve Setter, Pharmacy Reimbursement [address] [address] [phone] Health Maintenance Due Date Last Done Comments Zoster Vaccines (1 of 2) 1990 LUNG CANCER SCREENING YEARLY-USE SMARTSET 78655 06/23/2018 06/23/2017 *DEPRESSION SCREENING,ANNUAL FOR PTS 12 [...] Documents on File Type Date Recorded Patient Congressional Aide 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
--- OUTSIDE RECORDS SUMMARY | 2023-04-08 23:20 | External Medical Summary | Summary of Care ---
Author Name Unknown Organization [place] [address] Care Team Providers Care Human Resources Executive Name Role Phone Abram Owens MD Primary Care Provider [phone] Reason for Visit * Reason Comments Patient Assistance Program Encounter Details Date Type Department Care Team Description 09/26/2019 Pharmacy Pharmacy, [place] [address], [place] [id number] Coordinator, Pharmacy [facility] [address], [place] [id number] Stage 3 severe COPD by GOLD classification [...] nebulizer solutionIndications:S evere chronic obstructive pulmonary disease ([facility]),Stage 3 severe COPD by GOLD classification ([facility]) Inhale 2.5 mL via nebulizer 3 times a day. 50 mL 0 04/25/2019 Active levalbuterol (XOPENEX) 1.25 MG/3ML nebulizer solutionIndications:S evere chronic obstructive pulmonary disease ([facility]),Stage 3 severe COPD by GOLD classification ([facility]) Use Three times daily 63 mL 0 04/25/2019 Active folic acid 1 MG TabletIndications:Chr onic respiratory failure with hypoxia, on home O2 therapy ([facility]) Take 1 Tab by mouth daily. 90 Tab 1 06/23/2019 Active predniSONE (DELTASONE) 10 MG TabletIndications:Sev ere chronic obstructive pulmonary disease ([facility]) One daily with food 90 Tab 1 07/27/2019 Active levalbuterol (XOPENEX) 1.25 MG/3ML nebulizer solutionIndications:S tage 3 severe COPD by GOLD classification ([facility]) Inhale 1 mL via nebulizer 3 times a day. 270 mL 5 08/27/2019 Active ipratropium (ATROVENT) 0.02 % nebulizer solutionIndications:S tage 3 severe COPD by GOLD classification ([facility] [...] Coronavirus / COVID-19? Unable to assess 09/26/2019 8:37 AM EDT documented as of this encounter Progress Notes * Chele Gallardo OSA - 09/26/2019 8:38 AM EDT Completed Teva application for [employer] and proof of income were received on 09/25/2019. The documents were faxed to Abram Owens MD Per request from [employer] to sign and submit to the company. Faxed to If the patient is approved by the program, a 90 day supply of this medication should arrive at [address] [place] [address] in approximately 30 days. PRC follow up Teva 10/05/2019 JAH Manriquez Pharmaceutical Head Strength And Conditioning Coach 09/26/2019, 8:46 AM documented in this encounter Plan of Treatment Upcoming Encounters Date Type Specialty Care Team Description 09/28/2019 Pharmacy Manual Control Auger Press Operator, Pharmacy Reimbursement [address] [place] [address] [phone] 10/05/2019 Pharmacy Manual Control Auger Press Operator, Pharmacy Reimbursement [address] [place] [address] 11/13/2019 Office Visit [facility] [address] [facility] [address] [phone] Health Maintenance Due Date Last Done Comments Zoster Vaccines (1 of 2) 1992 LUNG CANCER SCREENING YEARLY-USE SMARTSET 56654 06/23/2018 06/23/2017 *DEPRESSION SCREENING,ANNUAL FOR PTS 12 [...] Documents on File Type Date Recorded Patient Automobile Upholsterer 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
--- OUTSIDE RECORDS SUMMARY | 2023-04-08 23:20 | External Medical Summary | Summary of Care ---
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 50 mL 0 04/25/2019 Active levalbuterol (XOPENEX) 1.25 MG/3ML nebulizer solutionIndications:S evere chronic obstructive pulmonary disease ([facility]),Stage 3 severe COPD by GOLD classification ([facility]) Use Three times daily 63 mL 0 04/25/2019 Active folic acid 1 MG TabletIndications:Chr onic respiratory failure with hypoxia, on home O2 therapy ([facility]) Take 1 Tab by mouth daily. 90 Tab 1 06/23/2019 Active predniSONE (DELTASONE) 10 MG TabletIndications:Sev ere chronic obstructive pulmonary disease ([facility]) One daily with food 90 Tab 1 07/27/2019 Active levalbuterol (XOPENEX) 1.25 MG/3ML nebulizer solutionIndications:S tage 3 severe COPD by GOLD classification ([facility]) Inhale 1 mL via nebulizer 3 times a day. 270 mL 5 08/27/2019 Active ipratropium (ATROVENT) 0.02 % nebulizer solutionIndications:S tage 3 severe COPD by GOLD classification ([facility] [...] as of this encounter Progress Notes * Abram Owens MD - 09/26/2019 3:29 PM EDT Wants handicappmar huogh documented in this encounter Plan of Treatment Upcoming Encounters Date Type Specialty Care Team Description 09/28/2019 Pharmacy Cigar Inspector, Pharmacy Reimbursement [address] [place] [address] [phone] 10/05/2019 Pharmacy Cigar Inspector, Pharmacy Reimbursement [address] [place] [address] [phone] 11/13/2019 Office Visit Family Medicine Alan Meyers MD [address] [place] [address] [phone] Health Maintenance Due Date Last Done Comments Zoster Vaccines (1 of 2) 1992 LUNG CANCER SCREENING YEARLY-USE SMARTSET 79071 06/23/2018 06/23/2017 *DEPRESSION SCREENING,ANNUAL FOR PTS 12 [...] on File Type Date Recorded Patient Public Stenographer 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
--- OUTSIDE RECORDS SUMMARY | 2023-04-08 23:20 | External Medical Summary | Summary of Care ---
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 50 mL 0 04/25/2019 Active levalbuterol (XOPENEX) 1.25 MG/3ML nebulizer solutionIndications: Severe chronic obstructive pulmonary disease (HCC),Stage 3 severe COPD by GOLD classification ([facility]) Use Three times daily 63 mL 0 04/25/2019 Active folic acid 1 MG TabletIndications:Ch ronic respiratory failure with hypoxia, on home O2 therapy ([facility]) Take 1 Tab by mouth daily. 90 Tab 1 06/23/2019 Active predniSONE (DELTASONE) 10 MG TabletIndications:Se pollo chronic obstructive pulmonary disease ([facility]) One daily with food 90 Tab 1 07/27/2019 Active levalbuterol (XOPENEX) 1.25 MG/3ML nebulizer solutionIndications: Stage 3 severe COPD by GOLD classification ([facility]) Inhale 1 mL via nebulizer 3 times a day. 270 mL 5 08/27/2019 Active ipratropium (ATROVENT) 0.02 % nebulizer solutionIndications: Stage 3 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 270 mL 5 08/27/2019 Active documented as of this encounter (statuses as of 09/15/2019) Active Problems Problem Noted Date Chronic respiratory failure with hypoxia , on home O2 therapy 12/03/2017 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 documented as of this encounter (statuses as of 09/15/2019) Resolved Problems Problem Noted Date Resolved Date [...] as of this encounter (statuses as of 09/15/2019) Immunizations Name Administration Dates Next Due PPD [...] Progress Notes * Chele Gallardo OSA - 09/15/2019 8:18 AM EDT Patient needs re-enrolled: Company: [employer]eva RX: [employer] HFA Provider: Abram Owens MD The patient was mailed forms 08/09/2019 to sign and mail back to [facility] office with proof of income. Patient request Teva forms to be re-sent. Once the forms are received in the [facility] office, the forms will be forwarded to the prescribing provider for a signature and submission to the appropriate pharmaceutical company. If the patient is approved for a PAP program, the free medication should arrive in approximately thirty (30) days. Forms mailed to patient 08/09/2019, resent 09/15/2019 Follow up Jer/Tiara: 09/29/2019 JAH Manriquez Pharmaceutical Product Distribution Specialist 09/15/2019, 8:19 AM documented in this encounter Plan of Treatment Upcoming Encounters Date Type Specialty Care Team Description 09/28/2019 Pharmacy Financial Institution President, Pharmacy Reimbursement [address] [place] [address] [phone] Health Maintenance Due Date Last Done Comments Zoster Vaccines (1 of 2) 1992 LUNG CANCER SCREENING YEARLY-USE SMARTSET 91410 06/23/2018 06/23/2017 *DEPRESSION SCREENING,ANNUAL FOR PTS 12 [...] Documents on File Type Date Recorded Patient Clarification Operator 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
--- OUTSIDE RECORDS SUMMARY | 2023-04-08 23:20 | External Medical Summary | Summary of Care ---
Author Name Unknown Organization [place] [address] Care Team Providers Care Glove Presser Name Role Phone Abram Quiroz MD Primary Care Provider + [phone] Reason for Visit * Reason Comments Medication Refill Encounter Details Date Type Department Care Team Description 09/19/2019 Refill Internal Medicine [address] [address] Abram Quiroz MD [address] [place] [address] [phone] SOB (shortness of breath) Allergies No Known Allergiesdocumented as of this encounter (statuses as of 09/19/2019) Medications Medication Sig Dispensed Refills Start Date End Date Status THIAMINE (VITAMIN B-1) 100 MG Tablet Take 100 mg by mouth daily. 0 04/29/2017 Active albuterol (PROAIR HFA) 108 (90 BASE) MCG/ACT inhalerIndications: SOB (shortness of breath) Inhale 2 Puffs by mouth every 4 hours as needed for Shortness of Breath or Wheezing. 1 Inhaler 5 04/30/2017 Active oxygen GASIndications:Inc to 4LPM with ambulation/exertion Use 2 L/min(Oxygen) as directed continuous. 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 50 mL 0 04/25/2019 Active levalbuterol (XOPENEX) 1.25 MG/3ML nebulizer solutionIndications :Severe chronic obstructive pulmonary disease ([facility]),Stage 3 severe COPD by GOLD classification ([facility]) Use Three times daily 63 mL 0 04/25/2019 Active folic acid 1 MG TabletIndications:C hronic respiratory failure with hypoxia, on home O2 therapy ([facility]) Take 1 Tab by mouth daily. 90 Tab 1 06/23/2019 Active predniSONE (DELTASONE) 10 MG TabletIndications:S evere chronic obstructive pulmonary disease ([facility]) One daily with food 90 Tab 1 07/27/2019 Active levalbuterol (XOPENEX) 1.25 MG/3ML nebulizer solutionIndications :Stage 3 severe COPD by GOLD classification ([facility]) Inhale 1 mL via nebulizer 3 times a day. 270 mL 5 08/27/2019 Active ipratropium (ATROVENT) 0.02 % nebulizer solutionIndications :Stage 3 severe COPD by GOLD classification ([facility]) Inhale 2.5 mL via nebulizer 3 times a day. 270 mL 5 08/27/2019 Active fluticasone-salmete rol (ADVAIR DISKUS) 250-50 MCG/DOSE inhalerIndications: SOB (shortness of breath) Inhale 1 Puff by mouth 2 times a day. Brand necessary 3 Each 3 09/19/2019 Active fluticasone-salmete rol (ADVAIR DISKUS) 250-50 MCG/DOSE inhalerIndications: SOB (shortness of breath) Inhale 1 Puff by mouth 2 times a day. 3 Disk Dosing Unit 3 08/18/2018 0 Discontinu ed(Refill) documented as of this encounter (statuses as of 09/19/2019) Active Problems Problem Noted Date Chronic respiratory failure with hypoxia , on home O2 therapy 12/03/2017 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 Unable to assess 09/15/2019 8:17 AM EDT documented as of this encounter Miscellaneous Notes * Telephone Encounter - Abram Quiroz MD - 09/19/2019 10:00 AM EDT Signed Prescriptions: Disp Refills fluticasone-salmeterol (ADVAIR DISKUS) 250*3 Each 3 Sig: Inhale 1 Puff by mouth 2 times a day. Brand necessary Authorizing Provider: ABRAM QUIROZ * Telephone Encounter - Ligia Connors LPN - 09/19/2019 9:42 AM EDT Pt is getting this thru the patient assist program need script printed out Pending Prescriptions: Disp Refills fluticasone-salmeterol (ADVAIR DISKUS) 25*3 Each 3 Sig: Inhale 1 Puff by mouth 2 times a day. 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 ([facility]) J44.9 Oxygen dependent Z99.81 Chronic respiratory failure with hypoxia, on home O2 therapy ([facility]) J96.11, Z99.81 Gastroesophageal reflux disease with esophagitis K21.0 Labs: CREATININE-OUTSIDE LAB(MG/DL) [place] Dt/Tm Resulted Value [...] 5.7 FINAL 07/15/05 5:06P 07/16/05 5.6 FINAL documented in this encounter Plan of Treatment Upcoming Encounters Date Type Specialty Care Team Description 09/28/2019 Pharmacy Associate Account Manager, Pharmacy Reimbursement [address] [place] [address] [phone] Health Maintenance Due Date Last Done Comments Zoster Vaccines (1 of 2) 1992 LUNG CANCER SCREENING YEARLY-USE SMARTSET 48372 06/23/2018 06/23/2017 *DEPRESSION SCREENING,ANNUAL FOR PTS 12 [...] Documents on File Type Date Recorded Patient Knowledge Manager 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
--- OUTSIDE RECORDS SUMMARY | 2023-04-08 23:20 | External Medical Summary | Summary of Care ---
Author Name Unknown Organization [place] [address] Care Team Providers Care Apple Turner Name Role Phone Abram Owens MD Primary Care Provider + [phone] Encounter Details Date Type Department Care Team Description 09/06/2019 Telephone Internal Medicine [address] [address] Abram Owens MD [address] [place] [address] [place] [address] [phone] Allergies No Known Allergiesdocumented as of this encounter (statuses as of 09/06/2019) Medications Medication Sig Dispensed Refills Start Date [...] classification ([facility]) Use Three times daily 63 mL 0 04/25/2019 Active folic acid 1 MG TabletIndications:Ch ronic respiratory failure with hypoxia, on home O2 therapy ([facility]) Take 1 Tab by mouth daily. 90 Tab 1 06/23/2019 Active predniSONE (DELTASONE) 10 MG TabletIndications:Se pollo chronic obstructive pulmonary disease ([facility]) One daily with food 90 Tab 1 07/27/2019 Active levalbuterol (XOPENEX) 1.25 MG/3ML nebulizer solutionIndications: Stage 3 severe COPD by GOLD classification ([facility]) Inhale 1 mL via nebulizer 3 times a day. 270 mL 5 08/27/2019 Active ipratropium (ATROVENT) 0.02 % nebulizer solutionIndications: Stage 3 severe COPD by GOLD classification ([facility]) Inhale 2.5 mL via nebulizer 3 times a day. 270 mL 5 08/27/2019 Active documented as of this encounter (statuses as of 09/06/2019) Active Problems Problem Noted Date Chronic respiratory failure with hypoxia , on home O2 therapy 12/03/2017 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 It did go through. I also faxed it to [facility]. Tiara aware. * Telephone Encounter - Teagan Walker LPN - 09/06/2019 2:57 PM EDT Verified with Tiara. He is taking this Daliresp and gets it through the mail. Wants called once it isfaxed. * Telephone Encounter - Leeanne Farley OSA - 09/06/2019 1:35 PM EDT Patient daughter in-law Tiara calling. Tiara states a form was faxed to provider for completion norma. The form is an AZME form for patient medication. Tiara states they need the form faxed back to patients son at the [employer] [facility] at [phone]. Tiara States the form is needed to be placed in the mail by this evening. Please advise Tiara when form is complete and faxed [phone] documented in this encounter Plan of Treatment Health Maintenance Due Date Last Done Comments Zoster Vaccines (1 of 2) 1992 LUNG CANCER SCREENING YEARLY-USE SMARTSET 38105 06/23/2018 06/23/2017 *DEPRESSION SCREENING,ANNUAL FOR PTS 12 [...] Documents on File Type Date Recorded Patient Yield Improvement Engineer 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
--- OUTSIDE RECORDS SUMMARY | 2023-04-08 23:20 | External Medical Summary | Summary of Care ---
Author Name Unknown Organization [place] [address] Care Team Providers Care Proofsheet Corrector Name Role Phone Abram Owens MD Primary Care Provider [phone] Reason for Visit * Reason Comments case management [facility] Encounter Details Date Type Department Care Team Description 09/25/2019 Telephone Care Management, [address] [id number] Lucille Burr, asset management analyst ([facility]) Allergies No Known Allergiesdocumented as of this encounter (statuses as of 09/25/2019) Medications Medication Sig Dispensed Refills Start Date [...] evere chronic obstructive pulmonary disease ([facility]),Stage 3 severe COPD by GOLD classification ([facility]) Inhale 2.5 mL via nebulizer 3 times a day. 50 mL 0 04/25/2019 Active levalbuterol (XOPENEX) 1.25 MG/3ML nebulizer solutionIndications:S evere chronic obstructive pulmonary disease ([facility]),Stage 3 severe COPD by GOLD classification ([facility]) Use Three times daily 63 mL 0 04/25/2019 Active folic acid 1 MG TabletIndications:Chr onic respiratory failure with hypoxia, on home O2 therapy ([facility]) Take 1 Tab by mouth daily. 90 Tab 1 06/23/2019 Active predniSONE (DELTASONE) 10 MG TabletIndications:Sev ere chronic obstructive pulmonary disease ([facility]) One daily with food 90 Tab 1 07/27/2019 Active levalbuterol (XOPENEX) 1.25 MG/3ML nebulizer solutionIndications:S tage 3 severe COPD by GOLD classification ([facility]) Inhale 1 mL via nebulizer 3 times a day. 270 mL 5 08/27/2019 Active ipratropium (ATROVENT) 0.02 % nebulizer solutionIndications:S tage 3 severe COPD by GOLD classification ([facility]) Inhale 2.5 mL via nebulizer 3 times a day. 270 mL 5 08/27/2019 Active fluticasone-salmetero l (ADVAIR DISKUS) 250-50 MCG/DOSE inhalerIndications:SO B (shortness of breath) Inhale 1 Puff by mouth 2 times a day. Brand necessary 3 Each 3 09/19/2019 Active documented as of this encounter (statuses as of 09/25/2019) Active Problems Problem Noted Date Chronic respiratory failure with hypoxia , on home O2 therapy 12/03/2017 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 documented as of this encounter (statuses as of 09/25/2019) Resolved Problems Problem Noted Date Resolved Date [...] as of this encounter (statuses as of 09/25/2019) Immunizations Name Administration Dates Next Due PPD [...] encounter Miscellaneous Notes * Telephone Encounter - Lucille Burr, FRANCES - 09/25/2019 12:19 PM EDT [facility]. Message left for return CM call. Attempt at goal review. documented in this encounter Plan of Treatment Upcoming Encounters Date Type Specialty Care Team Description 09/28/2019 Pharmacy Grade Checker, Pharmacy Reimbursement [address] [facility] [place] [address] 11/13/2019 Office Visit Family Medicine Alan Meyers MD [address] [facility] [place] [address] [phone] Health Maintenance Due Date Last Done Comments Zoster Vaccines (1 of 2) 1992 LUNG CANCER SCREENING YEARLY-USE SMARTSET 03823 06/23/2018 06/23/2017 *DEPRESSION SCREENING,ANNUAL FOR PTS 12 [...] Documents on File Type Date Recorded Patient Recordist Chief 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
--- OUTSIDE RECORDS SUMMARY | 2023-04-08 23:20 | External Medical Summary | Summary of Care ---
Author Name Unknown Organization [place] [address] Care Team Providers Care Lock Assembler Name Role Phone Abram Owens MD Primary Care Provider [phone] Reason for Visit * Reason Comments Advice Encounter Details Date Type Department Care Team Description 08/17/2019 Telephone Internal Medicine [address] [address] Ohs, Khadijah Sunshine RN [address] [place] [address] [phone] Advice Allergies No Known Allergiesdocumented as of this encounter (statuses as of 08/17/2019) Medications Medication Sig Dispensed Refills Start Date [...] Stage 3 severe COPD by GOLD classification ([facility]) Inhale 2.5 mL via nebulizer 3 times a day. 270 mL 5 04/25/2019 Active levalbuterol (XOPENEX) 1.25 MG/3ML nebulizer solutionIndications: Stage 3 severe COPD by GOLD classification ([facility]) Inhale 1 mL via nebulizer 3 times a day. 270 mL 5 04/25/2019 Active ipratropium (ATROVENT) 0.02 % nebulizer solutionIndications: Severe chronic obstructive pulmonary disease (HCC),Stage 3 severe COPD by GOLD classification ([facility]) Inhale 2.5 mL via nebulizer 3 times a day. 50 mL 0 04/25/2019 Active levalbuterol (XOPENEX) 1.25 MG/3ML nebulizer solutionIndications: Severe chronic obstructive pulmonary disease (HCC),Stage 3 severe COPD by GOLD classification ([facility]) Use Three times daily 63 mL 0 04/25/2019 Active folic acid 1 MG TabletIndications:Ch ronic respiratory failure with hypoxia, on home O2 therapy ([facility]) Take 1 Tab by mouth daily. 90 Tab 1 06/23/2019 Active predniSONE (DELTASONE) 10 MG TabletIndications:Se pollo chronic obstructive pulmonary disease ([facility]) One daily with food 90 Tab 1 07/27/2019 Active doxycycline hyclate 100 MG CapsuleIndications:B ronchitis Take 1 Cap by mouth 2 times a day for 10 days. Until gone. 20 Cap 0 08/17/2019 0 Active documented as of this encounter (statuses as of 08/17/2019) Active Problems Problem Noted Date Chronic respiratory failure with hypoxia , on home O2 therapy 12/03/2017 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 documented as of this encounter (statuses as of 08/17/2019) Resolved Problems Problem Noted Date Resolved Date [...] as of this encounter (statuses as of 08/17/2019) Immunizations Name Administration Dates Next Due PPD [...] encounter Miscellaneous Notes * Telephone Encounter - Khadijah Rehman RN - 08/17/2019 3:51 PM EDT He is aware that Cathie was called to pharm for him. Advised to call us if no improvement. Khadijah Rehman RN * Telephone Encounter - Khadijah Rehman RN - 08/17/2019 2:36 PM EDT Daniel called reporting some increased SOB and cough with green thick mucus. Asks if something can be called in for him? Thanks, Khadijah Rehman RN documented in this encounter Plan of Treatment Upcoming Encounters Date Type Specialty Care Team Description 09/05/2019 Pharmacy Operations Controller, Pharmacy Reimbursement [address] [place], [place] [id number] Stage 3 severe COPD by GOLD classification (HCC)* Health Maintenance Due Date Last Done Comments Zoster Vaccines (1 of 2) 1992 LUNG CANCER SCREENING YEARLY-USE SMARTSET 41854 06/23/2018 06/23/2017 *DEPRESSION SCREENING,ANNUAL FOR PTS 12 [...] as of this encounter Visit Diagnoses Diagnosis Bronchitis- Primary Bronchitis, not specified as acute or chronic documented in this encounter Advance Directives Documents on File Type Date Recorded Patient Slate Mixer 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
--- OUTSIDE RECORDS SUMMARY | 2023-04-08 23:20 | External Medical Summary | Summary of Care ---
Author Name Unknown Organization [facility] [place] [address] Care Team Providers Care Plaster Molder Name Role Phone Abram Owens MD Primary Care Provider [phone] Reason for Visit * Reason Comments Med Request Encounter Details Date Type Department Care Team Description 09/27/2019 Telephone Internal Medicine [address] [address] Abram Owens MD [address] [place] [address] [phone] Med Request Allergies No Known Allergiesdocumented as of this encounter (statuses as of 09/27/2019) Medications Medication Sig Dispensed Refills Start Date [...] (HCC),Stage 3 severe COPD by GOLD classification ([facility]) Inhale 2.5 mL via nebulizer 3 times a day. 50 mL 0 04/25/2019 Active levalbuterol (XOPENEX) 1.25 MG/3ML nebulizer solutionIndications: Severe chronic obstructive pulmonary disease (HCC),Stage 3 severe COPD by GOLD classification ([facility]) Use Three times daily 63 mL 0 04/25/2019 Active folic acid 1 MG TabletIndications:Ch ronic respiratory failure with hypoxia, on home O2 therapy ([facility]) Take 1 Tab by mouth daily. 90 Tab 1 06/23/2019 Active predniSONE (DELTASONE) 10 MG TabletIndications:Se pollo chronic obstructive pulmonary disease ([facility] [...] a day. 270 mL 5 08/27/2019 Active fluticasone-salmeter ol (ADVAIR DISKUS) 250-50 MCG/DOSE inhalerIndications:S OB (shortness of breath) Inhale 1 Puff by mouth 2 times a day. Brand necessary 3 Each 3 09/19/2019 Active Albuterol Sulfate (ALBUTEROL HFA) 108 (90 BASE) MCG/ACT inhalerIndications:S OB (shortness of breath) Inhale 2 Puffs by mouth every 4 hours as needed for Shortness of Breath or Wheezing. 18 g 5 09/27/2019 Active albuterol (PROAIR HFA) 108 (90 BASE) MCG/ACT inhalerIndications:S OB (shortness of breath) Inhale 2 Puffs by mouth every 4 hours as needed for Shortness of Breath or Wheezing. 1 Inhaler 5 04/30/2017 0 Discontinue d(Refill) documented as of this encounter (statuses as of 09/27/2019) Active Problems Problem Noted Date Chronic respiratory failure with hypoxia , on home O2 therapy 12/03/2017 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 Pt states he/she needs the Rx for COPD severe stage 3. Rx last prescribed on 04/30/2017 Pt reports he/she is taking the Rx Inhale 2 Puffs by mouth every 4 hours as needed for Shortness ofBreath or Wheezing. Please advise Pt if Rx request is appropriate or if Pt would need to schedule an OV in order to be evaluated for this Rx. If provider is agreeable, please send new Rx script [facility] [address] Pt can be reached at Patient Phone Numbers Thank You, Umm hSirley Replanting Machine Crew Refill Call Center 09/27/2019, 11:01 AM documented in this encounter Plan of Treatment Upcoming Encounters Date Type Specialty Care Team Description 09/28/2019 Pharmacy Egyptologist[facility] [address] [facility] [address] [phone] 10/05/2019 Pharmacy Egyptologist, Pharmacy Reimbursement [address] [facility] [place] [address] [phone] 11/13/2019 Office Visit Family Medicine Alan Meyers MD [address] [place] [address] [phone] Health Maintenance Due Date Last Done Comments Zoster Vaccines (1 of 2) 1992 LUNG CANCER SCREENING YEARLY-USE SMARTSET 49130 06/23/2018 06/23/2017 *DEPRESSION SCREENING,ANNUAL FOR PTS 12 [...] Documents on File Type Date Recorded Patient Product Promoter Sales Person 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
--- OUTSIDE RECORDS SUMMARY | 2023-04-08 23:20 | External Medical Summary | Summary of Care ---
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 50 mL 0 04/25/2019 Active levalbuterol (XOPENEX) 1.25 MG/3ML nebulizer solutionIndications:Se pollo chronic obstructive pulmonary disease ([facility]),Stage 3 severe COPD by GOLD classification ([facility]) Use Three times daily 63 mL 0 04/25/2019 Active folic acid 1 MG TabletIndications:Eyeglass Lens Generator rodrigo respiratory failure with hypoxia, on home O2 therapy ([facility]) Take 1 Tab by mouth daily. 90 Tab 1 06/23/2019 Active predniSONE (DELTASONE) 10 MG TabletIndications:Molly re chronic obstructive pulmonary disease ([facility]) One daily with food 90 Tab 1 07/27/2019 Active levalbuterol (XOPENEX) 1.25 MG/3ML nebulizer solutionIndications:St age 3 severe COPD by GOLD classification ([facility]) Inhale 1 mL via nebulizer 3 times a day. 270 mL 5 08/27/2019 Active ipratropium (ATROVENT) 0.02 % nebulizer solutionIndications:St age 3 severe COPD by GOLD classification ([facility] [...] as of this encounter (statuses as of 09/28/2019) Active Problems Problem Noted Date Chronic respiratory failure with hypoxia , on home O2 therapy 12/03/2017 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 Phone number: [phone] Forms sent to provider:09/14/2019 Patient Advair Diskus re-enrollment approved. Enrollment expires . [facility] sent refill instructions to Maria Isabel and scheduled re-enrollment 08/05/2020. Follow up needs made to company Coverage:Medicare A and B (No D) [address] [facility] [address] Patient Phone Numbers RX:Daliresp Dose: 500 MCG Quanity 90 Provider:Abram Owens MD ID# [id number] Please call [facility] to verify status of application. Phone number: [phone] Forms sent to provider:09/14/2019 JAH Manriquez Pharmaceutical Coil Inspector 09/13/2019, 2:08 PM Patient re-enrollment approved for Daliresp, will go into effect 10/19/2019. Enrollment will 10/17/2020. [facility] sent refill instructions to Maria Isabel and sched re-enrollment 08/05/2020. Follow up needs made to patient [phone] (home) , Patient Phone Numbers Coverage:Medicare A and B (No D) RX:Proair HFA Provider:Abram Owens MD Please call patient to verify status of Teva PAP application. Forms sent: 08/09/2019, resent 09/15/2019 JAH Manriquez Pharmaceutical Coil Inspector 09/15/2019, 8:21 AM PRC spoke to Tiara, Teva application received and is at PCP office to be faxed. Tiara also requested PRC to send copy of POI back to patient. JAH Manriquez Pharmaceutical Coil Inspector 09/21/2019, 10:12 AM PRC faxed copy of application to Ivan Randle per request from Tiara. JAH Manriquez Pharmaceutical Coil Inspector 09/25/2019, 10:50 AM [employer]eva received re-enrollment application, requesting call from patient for 3 way call with Medicare to obtain patient insurance benefit information. Per Maria Isabel, this will be done 09/29/2019. JAH Manriquez Pharmaceutical Coil Inspector 09/28/2019, 2:40 PM documented in this encounter Plan of Treatment Upcoming Encounters Date Type Specialty Care Team Description 10/05/2019 Pharmacy Log Loader Helper, Pharmacy Reimbursement [address] [facility] [place] [address] [phone] 11/13/2019 Office Visit Family Medicine Alan Meyers MD [address] [place] [address] [phone] Health Maintenance Due Date Last Done Comments Zoster Vaccines (1 of 2) 1992 LUNG CANCER SCREENING YEARLY-USE SMARTSET 12650 06/23/2018 06/23/2017 *DEPRESSION SCREENING,ANNUAL FOR PTS 12 [...] Documents on File Type Date Recorded Patient Baling Press Operator 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
--- OUTSIDE RECORDS SUMMARY | 2023-04-08 23:21 | External Medical Summary | Summary of Care ---
Author Name Unknown Organization [place] [address] Care Team Providers Care Acid Tank Liner Name Role Phone Abram Owens MD Primary Care Provider [phone] Reason for Visit * Reason Comments Forms Request Please see my note Encounter Details Date Type Department Care Team Description 07/19/2019 Telephone Internal Medicine [address] [address] Karina Salmeron PA-C [address] [place] [address] [phone] Forms Request (Please see my note) Allergies No Known Allergiesdocumented as of this encounter (statuses as of 07/19/2019) Medications Medication Sig Dispensed Refills Start Date [...] 3 Disk Dosing Unit 3 08/18/2018 Active predniSONE (DELTASONE) 10 MG TabletIndications:Se pollo chronic obstructive pulmonary disease (HCC) One daily with food 90 Tab 1 01/24/2019 Active ipratropium (ATROVENT) 0.02 % nebulizer solutionIndications: Stage 3 severe COPD by GOLD classification ([facility]) Inhale 2.5 mL via nebulizer 3 times a day. 270 mL 5 04/25/2019 Active levalbuterol (XOPENEX) 1.25 MG/3ML nebulizer solutionIndications: Stage 3 severe COPD by GOLD classification ([facility]) Inhale 1 mL via nebulizer 3 times a day. 270 mL 5 04/25/2019 Active ipratropium (ATROVENT) 0.02 % nebulizer solutionIndications: Severe chronic obstructive pulmonary disease (HCC),Stage 3 severe COPD by GOLD classification ([facility]) Inhale 2.5 mL via nebulizer 3 times a day. 50 mL 0 04/25/2019 Active levalbuterol (XOPENEX) 1.25 MG/3ML nebulizer solutionIndications: Severe chronic obstructive pulmonary disease (HCC),Stage 3 severe COPD by GOLD classification ([facility]) Use Three times daily 63 mL 0 04/25/2019 Active folic acid 1 MG TabletIndications:Ch ronic respiratory failure with hypoxia, on home O2 therapy ([facility]) Take 1 Tab by mouth daily. 90 Tab 1 06/23/2019 Active documented as of this encounter (statuses as of 07/19/2019) Active Problems Problem Noted Date Chronic respiratory failure with hypoxia , on home O2 therapy 12/03/2017 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 Forms at front attendant. 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 * Telephone Encounter - Ligia Connors LPN - 07/19/2019 4:21 PM EST Form was given to his PCP to sign Form signed try to call pt not able to leave message * Telephone Encounter - Esther Alvarez OSA - 07/19/2019 3:49 PM EST Pt's came in with form to be filled out for a handicapped parking placard. The form they had and was asking if Karina could re-sign for them. documented in this encounter Plan of Treatment Upcoming Encounters Date Type Specialty Care Team Description 07/24/2019 Pharmacy Smoke Control Supervisor, Pharmacy Reimbursement [address] [place] [address] 08/07/2019 Pharmacy Smoke Control Supervisor, Pharmacy Reimbursement [address] [place] [address] Health Maintenance Due Date Last Done Comments Zoster Vaccines (1 of 2) 1992 LUNG CANCER SCREENING YEARLY-USE SMARTSET 51011 06/23/2018 06/23/2017 DIABETES SCREEN EVERY 3 YRS-AGE [...] on File Type Date Recorded Patient Medical Staff Assistant 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
--- OUTSIDE RECORDS SUMMARY | 2023-04-08 23:21 | External Medical Summary | Summary of Care ---
Author Name Unknown Organization [place] [address] Care Team Providers Care Visitor Use Assistant Name Role Phone Abram Owens MD Primary Care Provider [phone] Reason for Visit * Reason Comments Medication Refill Encounter Details Date Type Department Care Team Description 06/23/2019 Refill Internal Medicine [address] [address] Ohs, Khadijah Sunshine RN [address] [place] [address] [phone] Chronic respiratory failure with hypoxia, on home O2 therapy (HCC) Allergies No Known Allergiesdocumented as of this encounter (statuses as of 06/23/2019) Medications Medication Sig Dispensed Refills Start Date [...] For heartburn 60 Tab 5 06/01/2018 Active fluticasone-salmete rol (ADVAIR DISKUS) 250-50 MCG/DOSE inhalerIndications: SOB (shortness of breath) Inhale 1 Puff by mouth 2 times a day. 3 Disk Dosing Unit 3 08/18/2018 Active predniSONE (DELTASONE) 10 MG TabletIndications:S evere chronic obstructive pulmonary disease (HCC) One daily with food 90 Tab 1 01/24/2019 Active ipratropium (ATROVENT) 0.02 % nebulizer solutionIndications [...] 04/25/2019 Active ipratropium (ATROVENT) 0.02 % nebulizer solutionIndications :Severe chronic obstructive pulmonary disease (HCC),Stage 3 severe COPD by GOLD classification ([facility]) Inhale 2.5 mL via nebulizer 3 times a day. 50 mL 0 04/25/2019 Active levalbuterol (XOPENEX) 1.25 MG/3ML nebulizer solutionIndications :Severe chronic obstructive pulmonary disease (HCC),Stage 3 severe COPD by GOLD classification ([facility]) Use Three times daily 63 mL 0 04/25/2019 Active folic acid 1 MG TabletIndications:C hronic respiratory failure with hypoxia, on home O2 therapy ([facility]) Take 1 Tab by mouth daily. 90 Tab 1 06/23/2019 Active folic acid 1 MG TabletIndications:C hronic respiratory failure with hypoxia, on home O2 therapy ([facility]) Take 1 Tab by mouth daily. 90 Tab 1 12/23/2018 0 Discontinu ed(Refill) folic acid 1 MG TabletIndications:C hronic respiratory failure with hypoxia, on home O2 therapy ([facility]) Take 1 Tab by mouth daily. 90 Tab 1 06/23/2019 0 Discontinu ed(Refill) documented as of this encounter (statuses as of 06/23/2019) Active Problems Problem Noted Date Chronic respiratory failure with hypoxia , on home O2 therapy 12/03/2017 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 Thanks, Khadijah Rehman RN documented in this encounter Plan of Treatment Upcoming Encounters Date Type Specialty Care Team Description 06/30/2019 Office Visit Internal Medicine Abram Owens MD [address] [place] [address] [place] [address] [phone] 07/10/2019 Pharmacy Batch Roller Operator, Pharmacy Reimbursement [address] [place] [facility] [place] [address] [phone] 08/07/2019 Pharmacy Batch Roller Operator, Pharmacy Reimbursement [address] [place] [facility] [place] [address] [phone] Health Maintenance Due Date Last Done Comments Zoster Vaccines (1 of 2) 1992 LUNG CANCER SCREENING YEARLY-USE SMARTSET 64901 06/23/2018 06/23/2017 DIABETES SCREEN EVERY 3 YRS-AGE 45 AND ABOVE 12/27/2020 12/27/2017, 06/23/2017, 06/18/2017, Additional history exists DTaP,Tdap,and Td Vaccines (2 - Td) 10/21/2027 10/20/2017 Pneumococcal Vaccine: 65+ Years Completed 10/20/2017, 04/27/2017 Influenza Vaccine (FLU shot) Completed 11/2018, 02/28/2018, 03/12/2017, Additional history exists MENINGOCOCCAL (MENACTRA) Aged Out No longer eligible based on patient's age to complete this topic documented as of this encounter Implants Not on filedocumented as of this encounter Visit Diagnoses Diagnosis Chronic respiratory failure with hypoxia, on home O2 therapy (HCC) documented in this encounter Advance Directives Documents on File Type Date Recorded Patient Ballast Cleaning Operator 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
--- OUTSIDE RECORDS SUMMARY | 2023-04-08 23:21 | External Medical Summary | Summary of Care ---
Author Name Unknown Organization [place] [address] Care Team Providers Care Diagnostic Tech Name Role Phone Abram Owens MD Primary Care Provider [phone] Reason for Visit * Reason Comments Patient Assistance Program Encounter Details Date Type Department Care Team Description 07/10/2019 Pharmacy Pharmacy, [place] [address], [place] [id number] Coordinator, Pharmacy Reimbursement [address] [id number] COPD, severe (HCC)* Allergies No Known Allergiesdocumented as of this encounter (statuses as of 07/10/2019) Medications Medication Sig Dispensed Refills Start Date [...] ([facility]) Inhale 1 mL via nebulizer 3 [...] GOLD classification ([facility]) Use Three times daily 63 mL 0 04/25/2019 Active folic acid 1 MG TabletIndications:Ch ronic respiratory failure with hypoxia, on home O2 therapy ([facility]) Take 1 Tab by mouth daily. 90 Tab 1 06/23/2019 Active documented as of this encounter (statuses as of 07/10/2019) Active Problems Problem Noted Date Chronic respiratory failure with hypoxia , on home O2 therapy 12/03/2017 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 Once the forms are received in the [facility] office, the forms will be forwarded to the prescribing provider for a signature and submission to the appropriate pharmaceutical company. If the patient is approved for a PAP program, the free medication should arrive in approximately thirty (30) days. Forms mailed to patient 07/10/2019 Follow up patient: 07/24/2019 JAH Conner Pharmaceutical Specifications Checker 06/19/2019, 8:22 AM JAH Conner Pharmaceutical Specifications Checker 07/10/2019, 8:58 AM documented in this encounter Plan of Treatment Upcoming Encounters Date Type Specialty Care Team Description 07/24/2019 Pharmacy Finger Cobbler, Pharmacy Reimbursement [address] [place] [address] 08/07/2019 Pharmacy Finger Cobbler, Pharmacy Reimbursement [address] [place] [address] Health Maintenance Due Date Last Done Comments Zoster Vaccines (1 of 2) 1992 LUNG CANCER SCREENING YEARLY-USE SMARTSET 48730 06/23/2018 06/23/2017 DIABETES SCREEN EVERY 3 YRS-AGE [...] Documents on File Type Date Recorded Patient Migrant Leader 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
--- OUTSIDE RECORDS SUMMARY | 2023-04-08 23:21 | External Medical Summary | Summary of Care ---
Author Name Unknown Organization [place] [address] Care Team Providers Care Mock Up Assembler Name Role Phone Abram Owens MD Primary Care Provider [phone] Encounter Details Date Type Department Care Team Description 06/26/2019 Scan Encounter Unspecified Department <No scans attached> Allergies No Known Allergiesdocumented as of this encounter (statuses as of 06/26/2019) Medications Medication Sig Dispensed Refills Start Date [...] GOLD classification ([facility]) Inhale 1 mL via nebulizer 3 times a day. 270 mL 5 04/25/2019 Active ipratropium (ATROVENT) 0.02 % nebulizer solutionIndications: Severe chronic obstructive pulmonary disease (HCC),Stage 3 severe COPD by GOLD classification ([facility]) Inhale 2.5 mL via nebulizer 3 times a day. 50 mL 0 04/25/2019 Active levalbuterol (XOPENEX) 1.25 MG/3ML nebulizer solutionIndications: Severe chronic obstructive pulmonary disease (HCC),Stage 3 severe COPD by GOLD classification ([facility]) Use Three times daily 63 mL 0 04/25/2019 Active folic acid 1 MG TabletIndications:Ch ronic respiratory failure with hypoxia, on home O2 therapy ([facility]) Take 1 Tab by mouth daily. 90 Tab 1 06/23/2019 Active documented as of this encounter (statuses as of 06/26/2019) Active Problems Problem Noted Date Chronic respiratory failure with hypoxia , on home O2 therapy 12/03/2017 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 documented as of this encounter Plan of Treatment Upcoming Encounters Date Type Specialty Care Team Description 06/30/2019 Office Visit Internal Medicine Abram Owens MD [address] [place] [address] [place] [address] 07/10/2019 Pharmacy Gas Generator Operator, Pharmacy Reimbursement [address] [place] [address] [phone] 08/07/2019 Pharmacy Gas Generator Operator, Pharmacy Reimbursement [address] [place] [address] [phone] Health Maintenance Due Date Last Done Comments Zoster Vaccines (1 of 2) 1992 LUNG CANCER SCREENING YEARLY-USE SMARTSET 01633 06/23/2018 06/23/2017 DIABETES SCREEN EVERY 3 YRS-AGE [...] Documents on File Type Date Recorded Patient Legal Librarian 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
--- OUTSIDE RECORDS SUMMARY | 2023-04-08 23:21 | External Medical Summary | Summary of Care ---
Author Name Unknown Organization [place] [address] Care Team Providers Care Performance Improvement Coordinator Name Role Phone Abram Owens MD Primary Care Provider [phone] Reason for Visit * Reason Comments Re-Check Encounter Details Date Type Department Care Team Description 06/30/2019 Office Visit Internal Medicine [address] [address] Abram Owens MD [address] [place] [address] [place] [address] [phone] Stage 3 severe COPD by GOLD classification ([facility])*; Chronic respiratory failure with hypoxia, on home O2 therapy ([facility]); Gastroesophageal reflux disease with esophagitis; Oxygen dependent Allergies No Known Allergiesdocumented as of this encounter (statuses as of 06/30/2019) Medications Medication Sig Dispensed Refills Start Date [...] (HCC),Stage 3 severe COPD by GOLD classification ([facility]) Inhale 2.5 mL via nebulizer 3 times a day. 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 90 Tab 1 06/23/2019 Active documented as of this encounter (statuses as of 06/30/2019) Active Problems Problem Noted Date Chronic respiratory failure with hypoxia , on home O2 therapy 12/03/2017 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 documented as of this encounter (statuses as of 06/30/2019) Resolved Problems Problem Noted Date Resolved Date [...] as of this encounter (statuses as of 06/30/2019) Immunizations Name Administration Dates Next Due PPD [...] krystle ilable. documented as of this encounter Last Filed Vital Signs Vital Sign Reading Time Taken Comments Blood Pressure 140/68 06/30/2019 3:10 PM EST Pulse 92 06/30/2019 3:10 PM EST Temperature 36.2 C (97.1 F) 06/30/2019 3:10 PM ES T Respiratory Rate 20 06/30/2019 3:10 PM EST Oxygen Saturation - - Inhaled Oxygen Concentration - - Weight 58.1 kg (128 lb) 06/30/2019 3:10 PM EST Height - - Body Mass Index 20.05 09/23/2018 2:38 PM EDT documented in this encounter Progress Notes * Abram Owens MD - 06/30/2019 3:11 PM EST He is on 2 L O2 all the time. He needs a placard for his car. He feels stable otherwise. He had hiscataracts done recently and feels a lot better. He did see pulmonary in April. has been sick. He feels ok unless he has to walk any distance, like 100 feet. Denies nausea, vomiting, or diarrhea. Denies fevers, chills or sweats. No chest pain. Health Maintenance addressed. Had shots and lung cancer screen is ordered. Past Medical History: Diagnosis Date Acute exacerbation of COPD with asthma ([facility]) 04/23/2017 [facility] Edentulous Gastroesophageal reflux disease with esophagitis Herpes zoster 01/11/2019 right neck and scalp Inflammation of sacroiliac joint ([facility]) 04/24/05 Loss of teeth due to trauma, extraction, or periodontal disease Other abnormal glucose 04/23/05 glucose 156 Other abnormal glucose 02/22/08 glucose 167 Other disorders of vitreous 12/05 Posterior vitreous detachment OS Other specified disorders of rotator cuff syndrome of shoulder and allied disorders 05/10 right shoulder Pneumonia 06/13/2017 left basal infiltrate Pneumonia due to Pseudomonas ([facility]) 05/20/2017 Severe chronic obstructive pulmonary disease ([facility]) 10/28/2016 severe by ATS criteria. [...] normal LV size and function, EF 55-60% Review of patient's allergies indicates: No Known Allergies Social History Socioeconomic History Marital status: Spouse name: Not on file Number of children: 6 Years of education: Not on file Highest education level: Not on file Occupational History Not on file Social Needs Financial resource strain: Not on file Food insecurity: Worry: Not on file Inability: Not on file Transportation needs: Medical: Not on file Non-medical: Not on file Tobacco Use Smoking status: Former Smoker Packs/day: 2.00 Years: 59.00 Pack years: 118.00 Types: Cigarettes Start date: 1954 Last attempt to quit: 04/07/2016 Years since quittin.2 Smokeless tobacco: Never Used Tobacco comment: started age 16 Substance and Sexual Activity Alcohol use: Yes Comment: 3-4 beers per day. Was drinking 8 per day. Drug use: No Sexual activity: Yes Partners: Female Lifestyle Physical activity: Days per week: Not on file Minutes per session: Not on file Stress: Not on file Relationships Social connections: Talks on phone: Not on file Gets together: Not on file Attends oriental orthodox service: Not on file Active member of club or organization: Not on file Attends meetings of clubs or organizations: Not on file Relationship status: Not on file Intimate partner violence: Fear of current or ex partner: Not on file Emotionally abused: Not on file Physically abused: Not on file Forced sexual activity: Not on file Other Topics Concern Not on file Social History Narrative Not on file Current Outpatient Medications Medication Sig Dispense Refill levalbuterol (XOPENEX) 1.25 MG/3ML nebulizer solution Use Three times daily 63 mL 0 acetaminophen (TYLENOL) 500 MG Tablet Take 500 mg by mouth every 4 hours as needed for Pain. albuterol (PROAIR HFA) 108 (90 BASE) MCG/ACT inhaler Inhale 2 Puffs by mouth every 4 hours as needed for Shortness of Breath or Wheezing. 1 Inhaler 5 folic acid 1 MG Tablet Take 1 Tab by mouth daily. 90 Tab 1 ipratropium (ATROVENT) 0.02 % nebulizer solution Inhale 2.5 mL via nebulizer 3 times a day. 270 mL 5 ipratropium (ATROVENT) 0.02 % nebulizer solution Inhale 2.5 mL via nebulizer 3 times a day. 50 mL 0 levalbuterol (XOPENEX) 1.25 MG/3ML nebulizer solution Inhale 1 mL via nebulizer 3 times a day. 270 mL 5 predniSONE (DELTASONE) 10 MG Tablet One daily with food 90 Tab 1 fluticasone-salmeterol (ADVAIR DISKUS) 250-50 MCG/DOSE inhaler Inhale 1 Puff by mouth 2 times a day. 3 Disk Dosing Unit 3 famotidine (PEPCID AC) 10 MG Tablet Take 1 Tab by mouth 2 times a day. For heartburn 60 Tab 5 roflumilast (DALIRESP) 500 MCG Tablet Take 500 mcg by mouth daily. hydrocortisone acetate (ANUSOL-HC) 25 MG suppository Administer 25 mg into the rectum 2 times a dayas needed for Hemorrhoids. Multiple Vitamins-Minerals (MULTIVITAMIN ADULTS) TABS Take by mouth daily. oxygen GAS Use 2 L/min(Oxygen) as directed continuous. Indications: Inc to 4LPM with ambulation/exertion THIAMINE (VITAMIN B-1) 100 MG Tablet Take 100 mg by mouth daily. Immunization History Administered Date(s) Administered PPD 04/22/2005 Pneumococcal Conjugate Vacc, 13 Valent (Prevnar) 10/20/2017 Pneumococcal Polysaccharide PPV23 (Pneumovax) 04/27/2017 Seasonal Influenza, Quadrivalent, No Preserve, 6 Mons & Above, IM 03/12/2017, 02/28/2018 Seasonal Influenza, Trivalent, Adjuvanted, 65+ yrs 04/12/2019 Seasonal Influenza, Trivalent, with Preserve, 3yr & Above, Split 04/18/2005, 04/24/2006, 03/12/2009 TDAP (age 10 and older)(Boostrix) 10/20/2017 LIPID PANEL Palmira Dt/Tm Resulted Value Status HOURS FASTING (hours) 02/17/08 3:12P 02/17/08 F Value: PATIENT NOT FASTING TRIGLYCERIDES (mg/dL) 02/17/08 3:12P 02/17/08 68 F CHOLESTEROL (mg/dL) 02/17/08 3:02/17/08 134 F HDL (mg/dL) 02/17/08 3:02/17/08 46 F CHOL/HDL RATIO (no units) 02/17/08 3:12P 02/17/08 2.9 F LDL (CALCULATED) (mg/dL) 02/17/08 3:02/17/08 74 F BASIC METAB PANEL, BMP [place]ira Dt/Tm Resulted Value Status BUN (mg/dL) 06/18/17 9:59A 06/18/17 11 F CREATININE (mg/dL) 06/18/17 9:59A 06/18/17 1.1 F SODIUM (mmol/L) 06/18/17 9:59A 06/18/17 138 F POTASSIUM (mmol/L) 06/18/17 9:59A 06/18/17 3.8 F CHLORIDE (mmol/L) 06/18/17 9:59A 06/18/17 96* F CO2 (mmol/L) 06/18/17 9:59A 06/18/17 26 F ANION GAP (mmol/L) 06/18/17 9:59A 06/18/17 16* F GLUCOSE (mg/dL) 06/18/17 9:59A 06/18/17 115 F CALCIUM (mg/dL) 06/18/17 9:59A 06/18/17 9.1 F E GLOM FILT RATE ( ) 06/18/17 9:59A 06/18/17 >60.0 F O: Blood pressure 140/68, pulse 92, temperature 36.2 C (97.1 F), temperature source Tympanic, resp. rate 20, weight 58.1 kg (128 lb). General appearance: well developed, well nourished and in no acute distress. Head normocephalic andatraumatic. No facial asymmetry. Eye exam; PEERLA, EOMI. No scleral icterus or nystagmus. Conjunctiva are pink and not injected. Oropharynx: no exudate,no teeth and no pharyngeal inflammation or postnasal drip. The palate is free of lesions and the uvula is normal. Trachea is in the midline. Neck supple with no adenopathy or thyromegaly. No carotid bruits. Chest expands equally and is symmetrical with normal AP diameter. Lungs clear, with no wheezes, rales, or rhonchi. Heart: S1 and S2 normal.PMI not obviously displaced. Heart regular, no murmurs, gallops, clicks or rubs. No CVA tenderness.No calf swelling or tenderness. No pedal edema. No skin rashes. Extremities unremarkable. A: Stage 3 severe COPD by GOLD classification (HCC) (Primary) Chronic respiratory failure with hypoxia, on home O2 therapy (HCC) Gastroesophageal reflux disease with esophagitis Oxygen dependent Follow Up: Return in about 6 months (around 12/29/2019). Continue other meds as before. Pulmonary is managing this. documented in this encounter Nursing Notes * Teagan Walker LPN - 06/30/2019 3:06 PM EST 6 month recheck documented in this encounter Plan of Treatment Upcoming Encounters Date Type Specialty Care Team Description 07/10/2019 Pharmacy Ug Designer, Pharmacy Reimbursement [address] [place] [address] 08/07/2019 Pharmacy Ug Designer, Pharmacy Reimbursement [address] [place] [address] Health Maintenance Due Date Last Done Comments Zoster Vaccines (1 of 2) 1992 LUNG CANCER SCREENING YEARLY-USE SMARTSET 88194 06/23/2018 06/23/2017 DIABETES SCREEN EVERY 3 YRS-AGE [...] COPD by GOLD classification ([facility])- Primary Chronic respiratory failure with hypoxia, on home O2 therapy ([facility]) Gastroesophageal reflux disease with esophagitis Oxygen dependent Dependence on supplemental oxygen documented in this encounter Advance Directives Documents on File Type Date Recorded Patient Patient Safety Sitter 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
--- OUTSIDE RECORDS SUMMARY | 2023-04-08 23:21 | External Medical Summary | Summary of Care ---
Author Name Unknown Organization [place] [address] Care Team Providers Care Medical Support Specialist Name Role Phone Abram Owens MD Primary Care Provider [phone] Reason for Visit * Reason Comments Medication Question Encounter Details Date Type Department Care Team Description 05/17/2019 Telephone Internal Medicine [address] [address] Abram Owens MD [address] [place] [address] [phone] Medication Question Allergies No Known Allergiesdocumented as of this encounter (statuses as of 05/17/2019) Medications Medication Sig Dispensed Refills Start Date [...] 3 Disk Dosing Unit 3 08/18/2018 Active folic acid 1 MG TabletIndications:Ch ronic respiratory failure with hypoxia, on home O2 therapy ([facility]) Take 1 Tab by mouth daily. 90 Tab 1 12/23/2018 Active predniSONE (DELTASONE) 10 MG TabletIndications:Se pollo [...] [facility]) Inhale 1 mL via nebulizer 3 times [...] classification ([facility]) Use Three times daily 63 mL 0 04/25/2019 Active documented as of this encounter (statuses as of 05/17/2019) Active Problems Problem Noted Date Chronic respiratory failure with hypoxia , on home O2 therapy 12/03/2017 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 documented as of this encounter (statuses as of 05/17/2019) Resolved Problems Problem Noted Date Resolved Date [...] as of this encounter (statuses as of 05/17/2019) Immunizations Name Administration Dates Next Due PPD 04/22/2005 Pneumococcal Conjugate Vacc, 13 Valent (Prevnar) 10/20/2017 Pneumococcal Polysaccharide PPV23 (Pneumovax) 04/27/2017 Seasonal Influenza, Quadriva lent, No Preserve, 6 Mons & Above, IM 02/28/2018,03/12/2017 Seasonal Influenza, Trivalen t, with Preserve, 3yr [...] encounter Miscellaneous Notes * Telephone Encounter - Danae Montalvo PHARM Tech - 05/17/2019 3:22 PM EST Pharmacy calling in requesting diagnosis codes for levalbuterol (XOPENEX) 1.25 MG/3ML nebulizer solution and ipratropium (ATROVENT) 0.02 % nebulizer solution. Advised pharmacy Severe chronic obstructive pulmonary disease (HCC) [J44.9] And Stage 3 severe COPD by GOLD classification (HCC). Thank you, Danae Montalvo Fitness Centre Manager Refill Call Center 05/17/2019, 3:40 PM documented in this encounter Plan of Treatment Upcoming Encounters Date Type Specialty Care Team Description 06/01/2019 Pharmacy Probation Worker, Pharmacy Reimbursement [address] [place] [address] [phone] 06/02/2019 Office Visit Internal Medicine Abram wOens MD [address] [place] [address] [place] [address] 06/19/2019 Pharmacy Probation Worker, Pharmacy Reimbursement [address], [place] [id number] Health Maintenance Due Date Last Done Comments Zoster Vaccines (1 of 2) 1992 LUNG CANCER SCREENING YEARLY-USE SMARTSET 17698 06/23/2018 06/23/2017 Influenza Vaccine (FLU shot) (#1) 2019 02/28/2018, 03/12/2017, 03/12/2009, Additional history exists DIABETES SCREEN EVERY 3 YRS-AGE 45 AND ABOVE 12/27/2020 12/27/2017, 06/23/2017, 06/18/2017, Additional history exists DTaP,Tdap,and Td Vaccines (2 - Td) 10/21/2027 10/20/2017 Pneumococcal Vaccine: 65+ Years Completed 10/20/2017, 04/27/2017 MENINGOCOCCAL (MENACTRA) Aged Out No longer eligible based on patient's age to complete this topic documented as of this encounter Implants Not on filedocumented as of this encounter Advance Directives Documents on File Type Date Recorded Patient Rippler 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
--- OUTSIDE RECORDS SUMMARY | 2023-04-08 23:21 | External Medical Summary | Summary of Care ---
Author Name Unknown Organization [place] [address] Care Team Providers Care Loan Consultant Name Role Phone Abram Owens MD Primary Care Provider [phone] Encounter Details Date Type Department Care Team Description 04/12/2019 Scan Encounter Unspecified Department <No scans attached> Allergies No Known Allergiesdocumented as of this encounter (statuses as of 05/09/2019) Medications Medication Sig Dispensed Refills Start Date End Date Status THIAMINE (VITAMIN B-1) 100 MG Tablet Take 100 mg by mouth daily. 0 04/29/2017 Active albuterol (PROAIR HFA) 108 (90 BASE) MCG/ACT inhalerIndications :SOB (shortness of breath) Inhale 2 Puffs by mouth every 4 hours as needed for Shortness of Breath or Wheezing. 1 Inhaler 5 04/30/2017 Active oxygen GASIndications:Inc to 4LPM with ambulation/exertio [...] For heartburn 60 Tab 5 06/01/2018 Active fluticasone-salmet umberto (ADVAIR DISKUS) 250-50 MCG/DOSE inhalerIndications :SOB (shortness of breath) Inhale 1 Puff by mouth 2 times a day. 3 Disk Dosing Unit 3 08/18/2018 Active folic acid 1 MG TabletIndications: Chronic respiratory failure with hypoxia, on home O2 therapy (HCC) Take 1 Tab by mouth daily. 90 Tab 1 12/23/2018 Active predniSONE (DELTASONE) 10 MG TabletIndications: Severe chronic obstructive pulmonary disease (HCC) One daily with food 90 Tab 1 01/24/2019 Active documented as of this encounter (statuses as of 05/09/2019) Active Problems Problem Noted Date Chronic respiratory failure with hypoxia , on home O2 therapy 12/03/2017 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 documented as of this encounter (statuses as of 05/09/2019) Resolved Problems Problem Noted Date Resolved Date [...] as of this encounter (statuses as of 05/09/2019) Immunizations Name Administration Dates Next Due PPD [...] Type Specialty Care Team Description 06/01/2019 Pharmacy Fisher [employer], Pharmacy Reimbursement [address] [place] [address] 06/02/2019 Office Visit Internal Medicine Abram Owens MD [address] [place] [address] [place]RAHAM [place] [address] 06/19/2019 Pharmacy [employer], Pharmacy Reimbursement [address] [place] [address] Health Maintenance Due Date Last Done Comments LUNG CANCER SCREENING YEARLY-USE SMARTSET 79273 06/23/2018 06/23/2017 Influenza Vaccine (FLU shot) (#1) [...] Documents on File Type Date Recorded 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
--- OUTSIDE RECORDS SUMMARY | 2023-04-08 23:21 | External Medical Summary | Summary of Care ---
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 10 Tab 0 06/15/2019 0 Active azithromycin (ZITHROMAX) 250 MG TabletIndications:Br onchitis, complicated Take 2 tabs by mouth on the first day, then 1 tab daily on days two through five 6 Tab 0 06/15/2019 0 Active documented as of this encounter (statuses as of 06/19/2019) Active Problems Problem Noted Date Chronic respiratory failure with hypoxia , on home O2 therapy 12/03/2017 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 documented as of this encounter (statuses as of 06/19/2019) Resolved Problems Problem Noted Date Resolved Date [...] as of this encounter (statuses as of 06/19/2019) Immunizations Name Administration Dates Next Due PPD [...] Progress Notes * Jackelyn Shelton OSA - 04/06/2019 11:[address] refill: Company: [employer]-Phone number [phone] Id# [id number] [address] [place] [address] Patient Phone Numbers Rx: Advair Disku Dose:250-50 Quantity: 3 RX #[id number] Provider: Abram Owens MD Refill # 3 of 3 Next Refill re enroll 07/08/2019 Enrollment Expires 08/18/2019 JAH Conner Pharmaceutical Compensation Manager 04/06/2019, 11:59 AM A refill order was placed for Advair Diskus from the [employer] program. Order # [id number] A 90 day supply will be shipped to [address] [place] [address] on 07/03/2019 and arrive in 7 to 10 business days. This is the last refill. Re enrollment needs scheduled JAH Conner Pharmaceutical Compensation Manager 06/19/2019, 8:19 AM documented in this encounter Plan of Treatment Upcoming Encounters Date Type Specialty Care Team Description 06/30/2019 Office Visit Internal Medicine Abram Owens MD [address] [place] [address] ABRAHAM Burnham [address] [phone] 07/10/2019 Pharmacy Space Controller, Pharmacy Reimbursement [address] [place] [address] [phone] 08/07/2019 Pharmacy Space Controller, Pharmacy Reimbursement [address] [place] [address] [phone] Health Maintenance Due Date Last Done Comments Zoster Vaccines (1 of 2) 1990 LUNG CANCER SCREENING YEARLY-USE SMARTSET 27936 06/23/2018 06/23/2017 DIABETES SCREEN EVERY 3 YRS-AGE [...] Documents on File Type Date Recorded 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
--- OUTSIDE RECORDS SUMMARY | 2023-04-08 23:21 | External Medical Summary | Summary of Care ---
Author Name Unknown Organization [place] [address] Care Team Providers Care Bone Tender Name Role Phone Abram Owens MD Primary Care Provider [phone] Reason for Visit * Reason Comments Medication Refill Encounter Details Date Type Department Care Team Description 06/23/2019 Refill Internal Medicine [address] [address] Ohs, Khadijah Sunshine RN [address] [place] [address] [phone] Chronic respiratory failure with hypoxia, on home [...] ([facility]) Inhale 1 mL via nebulizer [...] GOLD classification ([facility]) Use Three times daily 63 mL 0 04/25/2019 Active folic acid 1 MG TabletIndications:C hronic respiratory failure with hypoxia, on home O2 therapy ([facility]) Take 1 Tab by mouth daily. 90 Tab 1 06/23/2019 Active folic acid 1 MG TabletIndications:C hronic respiratory failure with hypoxia, on home O2 therapy ([facility]) Take 1 Tab by mouth daily. 90 Tab 1 12/23/2018 0 Discontinu ed(Refill) folic acid 1 MG TabletIndications:C hronic respiratory failure with hypoxia, on home O2 therapy ([facility]) Take 1 Tab by mouth [...] Office Visit Internal Medicine Abram Owens MD [address] [place] [address] [place] Burn[place] [address] [phone] 07/10/2019 Pharmacy Structural Manager, Pharmacy Reimbursement [address] [place] [facility] [place] [address] [phone] 08/07/2019 Pharmacy Structural Manager, Pharmacy Reimbursement [address] [place] [facility] [place] [address] [phone] Health Maintenance Due Date Last Done Comments Zoster Vaccines (1 of 2) 1990 LUNG CANCER SCREENING YEARLY-USE SMARTSET 80341 06/23/2018 06/23/2017 DIABETES SCREEN EVERY 3 YRS-AGE [...] on File Type Date Recorded Patient News Internship 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
--- OUTSIDE RECORDS SUMMARY | 2023-04-08 23:21 | External Medical Summary | Summary of Care ---
Author Name Unknown Organization [place] [address] Care Team Providers Care Research Fellow Name Role Phone Abram Owens MD Primary Care Provider [phone] Encounter Details Date Type Department Care Team Description 06/23/2019 Pattern Room AttendantHealth Club Manager Medicine [address] [address] Ohs, Khadijah Sunshine RN [address] [place] [address] [place] [address] [phone] Chronic respiratory failure with hypoxia, on home O2 therapy (HCC)*; Stage 3 severe COPD by GOLD classification ([facility]); Severe chronic obstructive pulmonary disease ([facility]) Allergies No Known Allergiesdocumented as of this [...] as of this encounter Progress Notes * Ori, Khadijah Sunshine RN - 06/23/2019 1:49 PM EST Case Management Assessment Is this call for a hospital, fci or rehab facility discharge to home? No S: Reports: Daniel called me on 06-15-19 reporting that he had a head cold x 1-2 weeks and now with cough and green mucus. Message to and Silver and Prednisone were sent to Pharm. He has finished this and feeling better. His breathing is improved from what it had been although not good at baseline. Heis wearing his nasal 02 as directed. He reports that he got diarrhea a few days ago which is finally slowing down. Cautioned to increasehis water intake to prevent dehydration and he has been trying to drink more. His just had a flu bug as well and ws having diarrhea. Daniel needs his Folic Acid refilled and message was sent. Using the nebulizer as directed and other inhalers as well. Uses a cane at times for safety. Eating ok and bowels are moving. Voiding without any problems. Encouraged to call me with any needs or concerns. O: Phone visit for CM 3 month assessment and f/u as well as f/u after rescue kit started 06-15-19. Medications: takes all medications as prescribed. A: Patient Centered Prioritized Goals: Development of self - management action plan with patient/caregiver/ provider. Patient and caregiver demonstrate basic understanding of their disease process. Exacerbations have been prevented, minimized or reduced in severity. Co-morbid conditions identified and managed. Patient/ caregiver demonstrates adherence to treatment plan. Identified Barriers: Older than 70 years FUNCTIONAL STATUS: (Definition - assess ability to patient to manage their own care, includes evaluation of activities of daily living, and instrumental activities of daily living, and cognitive abilities status) ADL'S - Needs Assistance With: N/A as pt is independent IADL'S - Needs Assistance With: Grocery Shopping, Cooking food, Routine Housework and Attending to safety Cognitive and Mental Health: denies problems, alert and oriented x 3 and able to communicate, understand instructions, process information. P: Pattern Room Attendant Interventions: Reinforce Self Management Action Plan established at previous visit Reinforced "call back instructions" if weight fails to return to baseline, urine outputs decrease, symptoms increase Reinforced fluid / diet restrictions Reinforced safety education / fall prevention Reinforced medication regimen - timing / dosing / purpose COPD: Pt instructed to: -Call with increased SOB, wheezing, chest tightness, increased cough, increased sputum with change in color or consistency and fever. -Wash hands often -Drink plenty of fluids -Use inhalers as directed, do not stop or skip doses -Avoid stress -Rest when tired or SOB -Avoid triggers -Clean inhalers once a week Educated on home safety: ? Create a fall proof home o Clear floors of clutter, loose wires, throw rugs, and cords. o Make sure halls, stairways, and entrances are well lit. o Install a nightlight in your bedroom, hallway and bathroom. o Install grab bars or handrails in the bathroom and on stairs. o Use a non-skid tub/shower mat. o Avoid climbing on a chair; instead use a step stool with a high handrail. o Keep sidewalks and steps in good repair o Keep steps and sidewalks free of snow and ice. ? Using aids to support and prevent falls o If you have poor balance or have fallen in the past, consider additional support such as a cane or walker. o Use a cane with good support and that is the proper length for you. o Use a walker if a cane doesnt provide enough support. ? Avoid medications that increase the risk of falling by causing dizziness, change in sensation or slowed reflexes. o Certain medicines may cause falls blood pressure pills, heart medicines, water pills, or sleeping pills. o Be sure to understand each medicine that you are taking and any side effects that may occur. ? Improve your balance and flexibility with muscle strengthening exercises. Ask your health care provider for some exercises that will be right for you. PCP Notified of enrollment in CM/HM program: Yes SNP Member? No Re-evaluation of plan of care and progress towards goals achievement: Plan to call patient in 3 months or less to reassess and update plan of care, instructed to call Pattern Room Attendant or Primary Care Provider with change in symptoms or as needed before next follow-up, verbalizes understanding and agrees with plan. Khadijah Rehman RN Outpatient Pattern Room Attendant documented in this encounter Plan of Treatment Upcoming Encounters Date Type Specialty Care Team Description 06/30/2019 Office Visit Internal Medicine Abram Owens MD [address] [place] [address] ABRAHAM Burnham [id number] 07/10/2019 Pharmacy Lockstitch Lining Setter, Pharmacy Reimbursement [address] [place] [address] [phone] 08/07/2019 Pharmacy Lockstitch Lining Setter, Pharmacy Reimbursement [address] [place] [address] [phone] Health Maintenance Due Date Last Done Comments Zoster Vaccines (1 of 2) 1992 LUNG CANCER SCREENING YEARLY-USE SMARTSET 17701 06/23/2018 06/23/2017 DIABETES SCREEN EVERY 3 YRS-AGE [...] hypoxia, on home O2 therapy (HCC)- Primary Stage 3 severe COPD by GOLD classification (HCC) Severe chronic obstructive pulmonary disease (HCC) Chronic airway obstruction, not elsewhere classified documented in this encounter Advance Directives Documents on File Type Date Recorded Patient Aerospace Control And Warning Systems 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
--- OUTSIDE RECORDS SUMMARY | 2023-04-08 23:21 | External Medical Summary | Summary of Care ---
Author Name Unknown Organization [place] [address] Care Team Providers Care Xray Tech Name Role Phone Abram Owens MD Primary Care Provider [phone] Reason for Visit * Reason Comments Med Request Encounter Details Date Type Department Care Team Description 04/25/2019 Telephone Internal Medicine [address] [address] Ohs, Khadijah Sunshine RN [address] [place] [address] [place] [address] [phone] Med Request Allergies No Known Allergiesdocumented as of this encounter (statuses as of 04/26/2019) Medications Medication Sig Dispensed Refills Start Date [...] as of this encounter (statuses as of 04/26/2019) Active Problems Problem Noted Date Chronic respiratory failure with hypoxia , on home O2 therapy 12/03/2017 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 Thanks, Khadijah Rehman, RN documented in this encounter Plan of Treatment Upcoming Encounters Date Type Specialty Care Team Description 06/01/2019 Pharmacy Python Web Developer, Pharmacy Reimbursement [address] [place] [address] [phone] 06/02/2019 Office Visit Internal Medicine Abram Owens MD [address] [place] [address] [place] Burn[place] [address] [phone] 06/19/2019 Pharmacy Python Web Developer, Pharmacy Reimbursement [address] [place] [address] [phone] Health Maintenance Due Date Last Done Comments LUNG CANCER SCREENING YEARLY-USE SMARTSET 61832 06/23/2018 06/23/2017 Influenza Vaccine (FLU shot) (#1) [...] (HCC) Chronic airway obstruction, not elsewhere classified Stage 3 severe COPD by GOLD classification ([facility]) documented in this encounter Advance Directives Documents on File Type Date Recorded Patient Technical Service Engineer 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
--- OUTSIDE RECORDS SUMMARY | 2023-04-08 23:21 | External Medical Summary | Summary of Care ---
Author Name Unknown Organization [place] [address] Care Team Providers Care Guest Specialist Name Role Phone Abram Owens MD Primary Care Provider [phone] Encounter Details Date Type Department Care Team Description 06/12/2019 Scan Encounter Unspecified Department <No scans attached> Allergies No Known Allergiesdocumented as of this encounter (statuses as of 06/12/2019) Medications Medication Sig Dispensed Refills Start Date [...] as of this encounter (statuses as of 06/12/2019) Active Problems Problem Noted Date Chronic respiratory failure with hypoxia , on home O2 therapy 12/03/2017 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 documented as of this encounter Plan of Treatment Upcoming Encounters Date Type Specialty Care Team Description 06/19/2019 Pharmacy Adaptive Physical Education Teacher, Pharmacy Reimbursement [address] [place] [address] 06/30/2019 Office Visit Internal Medicine Abram Owens MD [address] [place] [address] ABRAH[place] Burnham [address] [phone] 08/07/2019 Pharmacy Adaptive Physical Education Teacher, Pharmacy Reimbursement [address] [facility] [place] [address] Health Maintenance Due Date Last Done Comments Zoster Vaccines (1 of 2) 1990 LUNG CANCER SCREENING YEARLY-USE SMARTSET 27799 06/23/2018 06/23/2017 Influenza Vaccine (FLU shot) (#1) [...] Documents on File Type Date Recorded Patient Atmospheric Sciences Professor 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
--- OUTSIDE RECORDS SUMMARY | 2023-04-08 23:21 | External Medical Summary | Summary of Care ---
Author Name Unknown Organization [place] [address] Care Team Providers Care Exercise Science Instructor Name Role Phone Abram Quiroz MD Primary Care Provider [phone] Reason for Visit * Reason Comments Medication Refill Encounter Details Date Type Department Care Team Description 07/27/2019 Refill Internal Medicine [address] [address] OhsKhadijah RN [address] [place] [address] [phone] Severe chronic obstructive pulmonary disease (HCC) Allergies No Known Allergiesdocumented as of this encounter (statuses as of 07/27/2019) Medications Medication Sig Dispensed Refills Start Date [...] 08/18/2018 Active ipratropium (ATROVENT) 0.02 % nebulizer solutionIndications :Stage 3 severe COPD by GOLD classification ([facility]) Inhale 2.5 mL via nebulizer 3 times a day. 270 mL 5 04/25/2019 Active levalbuterol (XOPENEX) 1.25 MG/3ML nebulizer solutionIndications :Stage 3 severe COPD by GOLD classification ([facility]) Inhale 1 mL via nebulizer 3 times a day. 270 mL 5 04/25/2019 Active ipratropium (ATROVENT) 0.02 % nebulizer solutionIndications :Severe chronic obstructive pulmonary disease (HCC),Stage 3 severe COPD by GOLD classification ([facility]) Inhale 2.5 mL via nebulizer 3 times a day. 50 mL 0 04/25/2019 Active levalbuterol (XOPENEX) 1.25 MG/3ML nebulizer solutionIndications :Severe chronic obstructive pulmonary disease (HCC),Stage 3 severe COPD by GOLD classification ([facility]) Use Three times daily 63 mL 0 04/25/2019 Active folic acid 1 MG TabletIndications:C hronic respiratory failure with hypoxia, on home O2 therapy ([facility]) Take 1 Tab by mouth daily. 90 Tab 1 06/23/2019 Active predniSONE (DELTASONE) 10 MG TabletIndications:S evere chronic obstructive pulmonary disease ([facility]) One daily with food 90 Tab 1 07/27/2019 Active predniSONE (DELTASONE) 10 MG TabletIndications:S evere chronic obstructive pulmonary disease ([facility]) One daily with food 90 Tab 1 01/24/2019 0 Discontinu ed(Refill) documented as of this encounter (statuses as of 07/27/2019) Active Problems Problem Noted Date Chronic respiratory failure with hypoxia , on home O2 therapy 12/03/2017 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 Thanks, Khadijah Rehman, RN documented in this encounter Plan of Treatment Upcoming Encounters Date Type Specialty Care Team Description 08/07/2019 Pharmacy Deer Farmer, Pharmacy Reimbursement [address] [place] [address] [phone] Health Maintenance Due Date Last Done Comments Zoster Vaccines (1 of 2) 1990 LUNG CANCER SCREENING YEARLY-USE SMARTSET [address]2859 06/23/2018 06/23/2017 DIABETES SCREEN EVERY 3 YRS-AGE [...] on File Type Date Recorded Patient Patient Care Assistant 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
--- OUTSIDE RECORDS SUMMARY | 2023-04-08 23:21 | External Medical Summary | Summary of Care ---
Author Name Unknown Organization [place] [address] Care Team Providers Care Advertising Display Rotator Name Role Phone Abram Owens MD Primary Care Provider [phone] Reason for Visit * Reason Comments Patient Assistance Program Encounter Details Date Type Department Care Team Description 07/24/2019 Pharmacy Pharmacy, [place] [address], [place] [id number] Coordinator, Pharmacy Reimbursement [address], [place] [id number] Stage 3 severe COPD by GOLD classification (HCC)* Allergies No Known Allergiesdocumented as of this encounter (statuses as of 07/24/2019) Medications Medication Sig Dispensed Refills Start Date [...] (HCC),Stage 3 severe COPD by GOLD classification ([facility]) Inhale 2.5 mL via nebulizer 3 times a day. 50 mL 0 04/25/2019 Active levalbuterol (XOPENEX) 1.25 MG/3ML nebulizer solutionIndications: Severe chronic obstructive pulmonary disease (HCC),Stage 3 severe COPD by GOLD classification ([facility]) Use Three times daily 63 mL 0 04/25/2019 Active folic acid 1 MG TabletIndications:Ch ronic respiratory failure with hypoxia, on home O2 therapy ([facility]) Take 1 Tab by mouth daily. 90 Tab 1 06/23/2019 Active documented as of this encounter (statuses as of 07/24/2019) Active Problems Problem Noted Date Chronic respiratory failure with hypoxia , on home O2 therapy 12/03/2017 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 Forms sent: 07/10/2019 JAH Conner Pharmaceutical Parliamentary Librarian 07/10/2019, 9:04 AM LM for patient regarding if application was received JAH Conner Pharmaceutical Parliamentary Librarian 07/24/2019, 2:44 PM documented in this encounter Plan of Treatment Upcoming Encounters Date Type Specialty Care Team Description 08/07/2019 Pharmacy Photographers' Model, Pharmacy Reimbursement [address] [facility] [place] [address] Health Maintenance Due Date Last Done Comments Zoster Vaccines (1 of 2) 1990 LUNG CANCER SCREENING YEARLY-USE SMARTSET 82312 06/23/2018 06/23/2017 DIABETES SCREEN EVERY 3 YRS-AGE [...] Documents on File Type Date Recorded Patient Pan Greaser 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
--- OUTSIDE RECORDS SUMMARY | 2023-04-08 23:21 | External Medical Summary | Summary of Care ---
Author Name Unknown Organization [place] [address] Care Team Providers Care Psychologist Social Name Role Phone Abram Owens MD Primary Care Provider [phone] Reason for Visit * Reason Comments eRx-Medication Refill Encounter Details Date Type Department Care Team Description 01/13/2019 Refill Internal Medicine [address] [address] Abram Owens MD [address] [place] [address] [phone] Stage 3 severe COPD by GOLD classification (HCC) Allergies No Known Allergiesdocumented as of this encounter (statuses as of 06/25/2019) Medications Medication Sig Dispensed Refills Start Date End Date Status THIAMINE (VITAMIN B-1) 100 MG Tablet Take 100 mg by mouth daily. 0 7 Active albuterol (PROAIR HFA) 108 (90 BASE) MCG/ACT inhalerIndications :SOB (shortness of breath) Inhale 2 Puffs by mouth every 4 hours as needed for Shortness of Breath or Wheezing. 1 Inhaler 5 7 Active oxygen GASIndications:Inc to 4LPM with ambulation/exertio n Use 2 L/min(Oxygen) as directed continuous. Indications: Inc to 4LPM with ambulation/exe rtion 0 7 Active acetaminophen (TYLENOL) 500 MG [...] For heartburn 60 Tab 5 8 Active fluticasone-salmet umberto (ADVAIR DISKUS) 250-50 MCG/DOSE inhalerIndications :SOB (shortness of breath) Inhale 1 Puff by mouth 2 times a day. 3 Disk Dosing Unit 3 9 Active levalbuterol (XOPENEX) 1.25 MG/3ML nebulizer solution Use Three times daily 270 mL 5 8 04/25/20 19 Discontinued PredniSONE (DELTASONE) 10 MG TabletIndications: Severe chronic obstructive pulmonary disease (HCC) One daily with food 90 Tab 1 9 01/25/20 19 Discontinued(Re fill) HYDROcodone-acetam inophen 5-325 mg per tab 5-325 MG per tabletIndications: Bronchitis, complicated Take 1 Tab by mouth every 6 hours as needed for Other (severe cough). 30 Tab 0 9 01/19/20 19 Discontinued(Co urse of treatment completed) folic acid 1 MG TabletIndications: Chronic respiratory failure with hypoxia, on home O2 therapy (HCC) Take 1 Tab by mouth daily. 90 Tab 1 9 06/23/19 20 Discontinued(Re fill) levalbuterol (XOPENEX) 1.25 MG/3ML nebulizer solutionIndication s:Stage 3 severe COPD by GOLD classification ([facility]) Inhale 1 mL via nebulizer 3 times a day. 270 mL 5 9 04/25/20 19 Discontinued ipratropium (ATROVENT) 0.02 % nebulizer solutionIndication s:Stage 3 severe COPD by GOLD classification ([facility]) Inhale 2.5 mL via nebulizer 3 times a day. 270 mL 5 9 04/25/20 19 Discontinued(Re fill) amoxicillin-clavul anate (AUGMENTIN) 875-125 MG per TabletIndications: Cellulitis of head except face Take 1 Tab by mouth every 12 hours for 10 days. 20 Tab 0 9 01/22/20 19 valACYclovir (VALTREX) 1000 MG TabletIndications: Herpes zoster without complication Take 1 Tab by mouth 3 times a day for 7 days. For 7 days for shingles 21 Tab 0 9 01/19/20 19 documented as of this encounter (statuses as of 06/25/2019) Active Problems Problem Noted Date Chronic respiratory failure with hypoxia , on home O2 therapy 12/03/2017 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 documented as of this encounter (statuses as of 06/25/2019) Resolved Problems Problem Noted Date Resolved Date [...] as of this encounter (statuses as of 06/25/2019) Immunizations Name Administration Dates Next Due PPD [...] encounter Miscellaneous Notes * Telephone Encounter - Merced Choi [facility] - 06/25/2019 9:10 AM EST Refused Prescriptions: Disp Refills levalbuterol (XOPENEX) 1.25 MG/3ML nebuliz*288 mL 5 Sig: Inhale1 mL via nebulizer 3 times a day.Refused By: MERCED CHOI for Refusal: Duplicate Reque st * Telephone Encounter - Adelaide Candelaria frontend engineer - 01/16/2019 1:41 PM EDT Pending Prescriptions: Disp Refills levalbuterol (XOPENEX) 1.25 MG/3ML nebuli*288 mL 5 Sig: Inhale 1 mL via nebulizer 3 times a day. * Telephone Encounter - Adelaide Candelaria PHARM Tech - 01/16/2019 1:35 PM EDT Contacted patient and he stated to send to [facility] to fill this Rx. Thanks, Adelaide Candelaria Planning Management It Specialist Pharmacy Refill Call Center 01/16/2019,1:41 PM * Telephone Encounter - Merced Choi [facility] - 01/15/2019 11:18 AM EDT Pending Prescriptions: Disp Refills levalbuterol (XOPENEX) 1.25 MG/3ML nebuli*288 mL 5 Sig: Inhale 1 mL via nebulizer 3 times a day. * Telephone Encounter - Merced Choi [facility] - 01/15/2019 11:14 AM EDT Was going to resend as 288 ml based on package size; 01/10/2019 approved but listed as normal but noted different pharmacy requesting rx. Thanks, Merced Choi [facility] Staff Pharmacist Refill Call Center [phone] 01/15/2019, 11:14 AM * Telephone Encounter - Merced Choi [facility] - 01/15/2019 11:13 AM EDT Pending Prescriptions: Disp Refills levalbuterol (XOPENEX) 1.25 MG/3ML nebuli*72 mL Sig: Inhale 1 mL via nebulizer 3 times a day. Last Office Visit: 01/11/2019 Next Office Visit: 01/18/2019 Scheduled Provider(s): Rosibel Oliver PA-C If no future appointments scheduled, and last appointment is greater than a year ago, please schedule patient for a follow-up appointment Last date the medication was ordered: 01/10/2019 but listed as normal Patient Phone Numbers Labs: Lab Results Component [...] Office Visit Internal Medicine Abram Owens MD [address] [place] [address] [place] [address] [phone] 07/10/2019 Pharmacy Electronics Tech, Pharmacy Reimbursement [address] [place] [address] [phone] 08/07/2019 Pharmacy Electronics Tech, Pharmacy Reimbursement [address] [place] [address] [phone] Health Maintenance Due Date Last Done Comments Zoster Vaccines (1 of 2) 1990 LUNG CANCER SCREENING YEARLY-USE SMARTSET 83362 06/23/2018 06/23/2017 DIABETES SCREEN EVERY 3 YRS-AGE [...] Documents on File Type Date Recorded Patient Substation Operator Apprentice 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
--- OUTSIDE RECORDS SUMMARY | 2023-04-08 23:21 | External Medical Summary | Summary of Care ---
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 270 mL 5 04/25/2019 Active levalbuterol (XOPENEX) 1.25 MG/3ML nebulizer solutionIndications: Stage 3 severe COPD by GOLD classification ([facility]) Inhale 1 mL via nebulizer 3 times a day. 270 mL 5 04/25/2019 Active ipratropium (ATROVENT) 0.02 % nebulizer solutionIndications: Severe chronic obstructive pulmonary disease (HCC),Stage 3 severe COPD by GOLD classification ([facility]) Inhale 2.5 mL via nebulizer 3 times a day. 50 mL 0 04/25/2019 Active levalbuterol (XOPENEX) 1.25 MG/3ML nebulizer solutionIndications: Severe chronic obstructive pulmonary disease (HCC),Stage 3 severe COPD by GOLD classification ([facility]) Use Three times daily 63 mL 0 04/25/2019 Active documented as of this encounter (statuses as of 06/01/2019) Active Problems Problem Noted Date Chronic respiratory failure with hypoxia , on home O2 therapy 12/03/2017 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 documented as of this encounter (statuses as of 06/01/2019) Resolved Problems Problem Noted Date Resolved Date [...] as of this encounter (statuses as of 06/01/2019) Immunizations Name Administration Dates Next Due PPD [...] as of this encounter Progress Notes * Sami, Chele M, JAH - 06/01/2019 1:35 PM EST A refill order was placed for Daliresp from the [employer] program. A 90 day supply will be shipped to [address] [place] [address] and arrive in 7 to 10 business days. The next refill order is due Last refill, PRC sched re-enrollment. [facility]C confirmed with [employer] rep, enrollment expires 10/18/2019. JAH Manriquez Pharmaceutical Dishwashing Machine Repairer 06/01/2019, 1:36 PM * Jackelyn Shelton OSA - 03/21/2019 3:[address] refill: Company: [employer]-Phone number [phone] Id# [id number] [address] [place] [address] Patient Phone Numbers Rx: Daliresp Dose:500Mcg Quantity: 90 Provider: Abram Owens MD Provider Id#[id number] Refill # 3 of 3 Next Refill last refill Enrollment Expires 06/06/2019 JAH Conner Pharmaceutical Dishwashing Machine Repairer 03/21/2019, 3:18 PM documented in this encounter Plan of Treatment Upcoming Encounters Date Type Specialty Care Team Description 06/02/2019 Office Visit Internal Medicine Abram Owens MD [address] [place] [address] [place] [address] [phone] 06/19/2019 Pharmacy Commercial Drafter, Pharmacy Reimbursement [address] [place] [address] [phone] 08/07/2019 Pharmacy Commercial Drafter, Pharmacy Reimbursement [address] [place] [address] [phone] Health Maintenance Due Date Last Done Comments Zoster Vaccines (1 of 2) 1990 LUNG CANCER SCREENING YEARLY-USE SMARTSET 57357 06/23/2018 06/23/2017 Influenza Vaccine (FLU shot) (#1) [...] Documents on File Type Date Recorded Patient Angle Shear Set Up Operator 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
--- OUTSIDE RECORDS SUMMARY | 2023-04-08 23:21 | External Medical Summary | Summary of Care ---
Author Name Unknown Organization [place] [address] Care Team Providers Care Health Safety Coordinator Name Role Phone Abram Owens MD Primary Care Provider [phone] Reason for Visit * Reason Comments Med Request Encounter Details Date Type Department Care Team Description 06/15/2019 Telephone Internal Medicine [address] [address] Ohs, Khadijah Sunshine RN [address] [place] [address] [phone] Med Request Allergies No Known Allergiesdocumented as of this encounter (statuses as of 06/15/2019) Medications Medication Sig Dispensed Refills Start Date [...] Stage 3 severe COPD by GOLD classification ([facility]) Inhale 2.5 mL via nebulizer 3 times a day. 270 mL 5 04/25/2019 Active levalbuterol (XOPENEX) 1.25 MG/3ML nebulizer solutionIndications: Stage 3 severe COPD by GOLD classification ([facility]) Inhale 1 mL via nebulizer 3 times a day. 270 mL 5 04/25/2019 Active ipratropium (ATROVENT) 0.02 % nebulizer solutionIndications: Severe chronic obstructive pulmonary disease (HCC),Stage 3 severe COPD by GOLD classification ([facility]) Inhale 2.5 mL via nebulizer 3 times a day. 50 mL 0 04/25/2019 Active levalbuterol (XOPENEX) 1.25 MG/3ML nebulizer solutionIndications: Severe chronic obstructive pulmonary disease (HCC),Stage 3 severe COPD by GOLD classification ([facility]) Use Three times daily 63 mL 0 [...] as of this encounter (statuses as of 06/15/2019) Active Problems Problem Noted Date Chronic respiratory failure with hypoxia , on home O2 therapy 12/03/2017 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 documented as of this encounter (statuses as of 06/15/2019) Resolved Problems Problem Noted Date Resolved Date [...] as of this encounter (statuses as of 06/15/2019) Immunizations Name Administration Dates Next Due PPD [...] Telephone Encounter - Khadijah Rehman RN - 06/15/2019 2:49 PM EST Daniel is aware. He will call me if no improvement. Thanks, Khadijah Rehman RN * Telephone Encounter - Abram Owens MD - 06/15/2019 2:27 PM EST ok * Telephone Encounter - Khadijah Rehman RN - 06/15/2019 1:49 PM EST Daniel called to report that he has had a cold for 1-2 weeks and now having green nasal drainage. He denies any increased difficulty breathing than his baseline. Occasional cough. Denies any fever or chills. Asks if something can be called in for him to [facility]? Thanks, Khadijah Rehman RN documented in this encounter Plan of Treatment Upcoming Encounters Date Type Specialty Care Team Description 06/19/2019 Pharmacy Health Director, Pharmacy Reimbursement [address] [facility] [place] [address] [phone] 06/30/2019 Office Visit Internal Medicine Abram Owens MD [address] [place] [address] [place] [phone] 08/07/2019 Pharmacy Health Director, Pharmacy Reimbursement [address] [facility] [place] [address] [phone] Health Maintenance Due Date Last Done Comments Zoster Vaccines (1 of 2) 1990 LUNG CANCER SCREENING YEARLY-USE SMARTSET 75974 06/23/2018 06/23/2017 DIABETES SCREEN EVERY 3 YRS-AGE [...] Documents on File Type Date Recorded Patient Beef Selector 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
--- OUTSIDE RECORDS SUMMARY | 2023-04-08 23:21 | External Medical Summary | Summary of Care ---
Author Name Unknown Organization [place] [address] Care Team Providers Care Onion Topper Name Role Phone Abram Owens MD Primary Care Provider [phone] Reason for Visit * Reason Comments Patient Assistance Program Encounter Details Date Type Department Care Team Description 08/07/2019 Pharmacy Pharmacy, [place] [address] [place], [place] [phone] Coordinator, Pharmacy Reimbursement [address], [place] [phone] Stage 3 severe COPD by GOLD classification (HCC)* Allergies No Known Allergiesdocumented as of this encounter (statuses as of 08/09/2019) Medications Medication Sig Dispensed Refills Start Date [...] Stage 3 severe COPD by GOLD classification ([facility]) Inhale 2.5 mL via nebulizer 3 times a day. 270 mL 5 04/25/2019 Active levalbuterol (XOPENEX) 1.25 MG/3ML nebulizer solutionIndications: Stage 3 severe COPD by GOLD classification ([facility]) Inhale 1 mL via nebulizer 3 times a day. 270 mL 5 04/25/2019 Active ipratropium (ATROVENT) 0.02 % nebulizer solutionIndications: Severe chronic obstructive pulmonary disease (HCC),Stage 3 severe COPD by GOLD classification ([facility]) Inhale 2.5 mL via nebulizer 3 times a day. 50 mL 0 04/25/2019 Active levalbuterol (XOPENEX) 1.25 MG/3ML nebulizer solutionIndications: Severe chronic obstructive pulmonary disease (HCC),Stage 3 severe COPD by GOLD classification ([facility]) Use Three times daily 63 mL 0 04/25/2019 Active documented as of this encounter (statuses as of 08/09/2019) Active Problems Problem Noted Date Chronic respiratory failure with hypoxia , on home O2 therapy 12/03/2017 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 documented as of this encounter (statuses as of 08/09/2019) Resolved Problems Problem Noted Date Resolved Date [...] as of this encounter (statuses as of 08/09/2019) Immunizations Name Administration Dates Next Due PPD [...] this encounter Progress Notes * Chele Gallardo JAH - 06/01/2019 1:40 PM EST Patient needs re-enrolled: Company: [employer], [employer] C[employer], [employer] RX: Daliresp, Proair HFA, Advair Diskus Provider: Abram Owens MD The patient was mailed forms 08/09/2019 to sign and mail back to [facility] office with proof of income. Once the forms are received in the [facility] office, the forms will be forwarded to the prescribing provider for a signature and submission to the appropriate pharmaceutical company. If the patient is approved for a PAP program, the free medication should arrive in approximately thirty (30) days. Forms mailed to patient 08/09/2019 Follow up patient: 09/05/2019 [facility] sent applications to son's address [address] [place] [address] Please follow up with son Jer JAH Manriquez Pharmaceutical Social Security Specialist 06/01/2019, 1:40 PM JAH Manriquez Pharmaceutical Social Security Specialist 08/09/2019, 8:28 AM \ documented in this encounter Plan of Treatment Upcoming Encounters Date Type Specialty Care Team Description 09/05/2019 Pharmacy Intensive Care Unit Nurse, Pharmacy Reimbursement [address] [place] [address] Health Maintenance Due Date Last Done Comments Zoster Vaccines (1 of 2) 1990 LUNG CANCER SCREENING YEARLY-USE SMARTSET 19964 06/23/2018 06/23/2017 DIABETES SCREEN EVERY 3 YRS-AGE [...] Documents on File Type Date Recorded Patient Hair Spring Winder 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
--- OUTSIDE RECORDS SUMMARY | 2023-04-08 23:22 | External Medical Summary | Summary of Care ---
Author Name Unknown Organization [place] [address] Care Team Providers Care Neurodiagnostic Technician Name Role Phone Abram Owens MD Primary Care Provider [phone] Reason for Visit * Reason Comments Re-Check Encounter Details Date Type Department Care Team Description 01/18/2019 Office Visit Internal Medicine [address] [address] Rosibel Oliver PA-C [address] [place] [address] [place] [id number] Herpes zoster without complication*; Chronic respiratory failure with hypoxia, on home O2 therapy ([facility]); Oxygen dependent; Cellulitis of head except face Allergies No Known Allergiesdocumented as of this encounter (statuses as of 01/18/2019) Medications Medication Sig Dispensed Refills Start Date [...] Inc to 4LPM with ambulation/exer tion 0 7 Active acetaminophen (TYLENOL) 500 MG Tablet Take 500 mg by mouth every 4 hours as needed for Pain. 0 8 Active hydrocortisone acetate (ANUSOL-HC) 25 MG suppository Administer 25 mg into the rectum 2 times a day as needed for Hemorrhoids. 0 Active Multiple Vitamins-Minerals (MULTIVITAMIN ADULTS) TABS Take by mouth daily. 0 Active levalbuterol (XOPENEX) 1.25 MG/3ML nebulizer solution Use Three times daily 270 mL 5 8 Active roflumilast (DALIRESP) 500 MCG Tablet Take 500 mcg by mouth daily. 0 Active famotidine (PEPCID AC) 10 MG TabletIndications:G astroesophageal reflux disease with esophagitis Take 1 Tab by mouth 2 times a day. For heartburn 60 Tab 5 8 Active PredniSONE (DELTASONE) 10 MG TabletIndications:S evere chronic obstructive pulmonary disease (HCC) One daily with food 90 Tab 1 9 Active fluticasone-salmete rol (ADVAIR DISKUS) 250-50 MCG/DOSE inhalerIndications: SOB (shortness of breath) Inhale 1 Puff by mouth 2 times a day. 3 Disk Dosing Unit 3 9 Active folic acid 1 MG TabletIndications:C hronic respiratory failure with hypoxia, on home O2 therapy ([facility]) Take 1 Tab by mouth daily. 90 Tab 1 9 Active levalbuterol (XOPENEX) 1.25 MG/3ML nebulizer solutionIndications :Stage 3 severe COPD by GOLD classification ([facility]) Inhale 1 mL via nebulizer 3 times a day. 270 mL 5 9 Active ipratropium (ATROVENT) 0.02 % nebulizer solutionIndications :Stage 3 severe COPD by GOLD classification ([facility]) Inhale 2.5 mL via nebulizer 3 times a day. 270 mL 5 9 Active amoxicillin-clavula afua (AUGMENTIN) 875-125 MG per TabletIndications:C ellulitis of head except face Take 1 Tab by mouth every 12 hours for 10 days. 20 Tab 0 9 01/22/20 19 Active valACYclovir (VALTREX) 1000 MG TabletIndications:H erpes zoster without complication Take 1 Tab by mouth 3 times a day for 7 days. For 7 days for shingles 21 Tab 0 9 01/19/20 19 Active mupirocin calcium (BACTROBAN) 2 % ointmentIndications :Herpes zoster without complication Apply topically to affected area 3 times a day for 14 days. To affected area for up to 14 days. 22 g 1 9 02/02/20 19 Active HYDROcodone-acetami nophen 5-325 mg per tab 5-325 MG per tabletIndications:B ronchitis, complicated Take 1 Tab by mouth every 6 hours as needed for Other (severe cough). 30 Tab 0 9 01/19/20 19 Discontinued documented as of this encounter (statuses as of 01/18/2019) Active Problems Problem Noted Date Chronic respiratory failure with hypoxia , on home O2 therapy 12/03/2017 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 documented as of this encounter (statuses as of 01/18/2019) Resolved Problems Problem Noted Date Resolved Date [...] as of this encounter (statuses as of 01/18/2019) Immunizations Name Administration Dates Next Due PPD [...] Sign Reading Time Taken Comments Blood Pressure 120/72 01/18/2019 3:55 PM EDT Pulse 100 01/18/2019 3:55 PM EDT Temperature 36.8 C (98.3 F) 01/18/2019 3:55 PM ED T Respiratory Rate 20 01/18/2019 3:55 PM EDT Oxygen Saturation - - Inhaled Oxygen Concentration - - Weight 55.8 kg (123 lb) 01/18/2019 3:55 PM EDT Height - - Body Mass Index 19.26 09/23/2018 2:38 PM EDT documented in this encounter Progress Notes * Rosibel Oliver PA-C - 01/18/2019 4:05 PM EDT Subjective Jer Abreu Jr. is a 78 year old male. Chief Complaint Patient presents with Re-Check HPI: Here today for recheck of right neck sores and blisters behind the right ear. He was treated last week with valtrex for shingles and augmentin for secondary cellulitis of the ear. He is improving though still has pain behind the ear. The ear is no longer red, warm, or swollen. The blisters have scabbed over. He is using otc antibiotic ointment. No change in hearing or ringing in ears. No no sores. No change in vision or eye pain, redness, no sore throat or mouth ulcerations. PMH: Patient Active Problem List Diagnosis Code ADVANCE DIRECTIVE INFORMATION History of tobacco use Z87.891 Edentulous K00.0 Stage 3 severe COPD by GOLD classification ([facility]) J44.9 Oxygen dependent Z99.81 Chronic respiratory failure with hypoxia, on home O2 therapy ([facility]) J96.11, Z99.81 Gastroesophageal reflux disease with esophagitis K21.0 Current Outpatient Medications Medication Sig Dispense Refill mupirocin calcium (BACTROBAN) 2 % ointment Apply topically to affected area 3 times a day for 14 days. To affected area for up to 14 days. 22 g 1 amoxicillin-clavulanate (AUGMENTIN) 875-125 MG per Tablet Take 1 Tab by mouth every 12 hours for 10 days. 20 Tab 0 valACYclovir (VALTREX) 1000 MG Tablet Take 1 Tab by mouth 3 times a day for 7 days. For 7 days for shingles 21 Tab 0 ipratropium (ATROVENT) 0.02 % nebulizer solution Inhale 2.5 mL via nebulizer 3 times a day. 270mL 5 levalbuterol (XOPENEX) 1.25 MG/3ML nebulizer solution Inhale 1 mL via nebulizer 3 times a day. 270 mL 5 folic acid 1 MG Tablet Take 1 Tab by mouth daily. 90 Tab 1 fluticasone-salmeterol (ADVAIR DISKUS) 250-50 MCG/DOSE inhaler Inhale 1 Puff by mouth 2 times aday. 3 Disk Dosing Unit 3 PredniSONE (DELTASONE) 10 MG Tablet One daily with food 90 Tab 1 famotidine (PEPCID AC) 10 MG Tablet Take 1 Tab by mouth 2 times a day. For heartburn 60 Tab 5 roflumilast (DALIRESP) 500 MCG Tablet Take 500 mcg by mouth daily. levalbuterol (XOPENEX) 1.25 MG/3ML nebulizer solution Use Three times daily 270 mL 5 acetaminophen (TYLENOL) 500 MG Tablet Take 500 mg by mouth every 4 hours as needed for Pain. hydrocortisone acetate (ANUSOL-HC) 25 MG suppository Administer 25 mg into the rectum 2 times aday as needed for Hemorrhoids. Multiple Vitamins-Minerals (MULTIVITAMIN ADULTS) TABS Take by mouth daily. albuterol (PROAIR HFA) 108 (90 BASE) MCG/ACT inhaler Inhale 2 Puffs by mouth every 4 hours as needed for Shortness of Breath or Wheezing. 1 Inhaler 5 oxygen GAS Use 2 L/min(Oxygen) as directed continuous. Indications: Inc to 4LPM with ambulation/exertion THIAMINE (VITAMIN B-1) 100 MG Tablet Take 100 mg by mouth daily. Review of patient's allergies indicates: No Known Allergies Review of Systems Constitutional: Negative. HENT: Negative. Eyes: Negative. Skin: Positive for wound. Neurological: Negative. Objective BP 120/72 | Pulse 100 | Temp (Src) 98.3 (Tympanic) | Resp 20 | Wt 123 lbs (55.792kg) | BMI 19.26 kg/m | BSA 1.62 m Physical Exam Constitutional: He appears well-developed and well-nourished. No distress. HENT: Head: Normocephalic and atraumatic. Right Ear: External ear normal. Left Ear: External ear normal. Nose: Nose normal. Mouth/Throat: Oropharynx is clear and moist. No oropharyngeal exudate. Skin: Skin is warm. Rash noted. He is not diaphoretic. No erythema. No pallor. Blisters behind right ear now crusted over, no redness, warmth or swelling of pinna, R neck sore approx 1 cm diameter with crusting Nursing note and vitals reviewed. ASSESSMENT/PLAN: Herpes zoster without complication (Primary) - mupirocin calcium (BACTROBAN) 2 % ointment; Apply topically to affected area 3 times a day for 14days. To affected area for up to 14 days. Chronic respiratory failure with hypoxia, on home O2 therapy (HCC) Oxygen dependent Cellulitis of head except face - resolved, no further oral antibiotics required, notify office if any sx return, complete full course of augmentin Follow Up: Return if symptoms worsen or fail to improve. Rosibel Oliver PA-C documented in this encounter Nursing Notes * Nikole Alonzo LPN - 01/18/2019 3:53 PM EDT Here for recheck, right neck is scabbed documented in this encounter Plan of Treatment Upcoming Encounters Date Type Specialty Care Team Description 01/23/2019 Pharmacy [facility], Pharmacy Reimbursement [address] [place] [facility] [place] [address] [phone] 03/16/2019 Pharmacy [facility], Pharmacy Reimbursement [address] [place] [address] [phone] 03/29/2019 Office Visit Internal Medicine Abram Owens MD [address] [place] [address] [place] [address] Health Maintenance Due Date Last Done Comments LUNG CANCER SCREENING YEARLY-USE SMARTSET [id number] 06/23/2018 06/23/2017 Influenza Vaccine (FLU shot) (#1) 2019 02/28/2018, 03/12/2017, 03/12/2009, Additional history exists DIABETES SCREEN EVERY 3 YRS-AGE 45 AND ABOVE 12/27/2020 12/27/2017, 06/23/2017, 06/18/2017, Additional history exists DTaP,Tdap,and Td Vaccines (2 - Td) 10/21/2027 10/20/2017 PNEUMOCOCCAL ADULT 65 YRS AND OVER Completed 10/20/2017, 04/27/2017 MENINGOCOCCAL (MENACTRA) Aged Out No longer eligible based on patient's age to complete this topic documented as of this encounter Implants Not on filedocumented as of this encounter Visit Diagnoses Diagnosis Herpes zoster without complication- Primary Herpes zoster without mention of complication Chronic respiratory failure with hypoxia, on home O2 therapy (HCC) Oxygen dependent Dependence on supplemental oxygen Cellulitis of head except face Cellulitis and abscess of other specified site documented in this encounter Advance Directives Documents on File Type Date Recorded Patient Raw Scales Operator 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"
--- OUTSIDE RECORDS SUMMARY | 2023-04-08 23:22 | External Medical Summary | Summary of Care ---
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 0 Active famotidine (PEPCID AC) 10 MG TabletIndications:Ga stroesophageal reflux disease with esophagitis Take 1 Tab by mouth 2 times a day. For heartburn 60 Tab 5 06/01/2018 Active PredniSONE (DELTASONE) 10 MG TabletIndications:Se pollo chronic obstructive pulmonary disease (HCC) One daily with food 90 Tab 1 07/18/2018 Active fluticasone-salmeter ol (ADVAIR DISKUS) 250-50 MCG/DOSE inhalerIndications:S OB (shortness of breath) Inhale 1 Puff by mouth 2 times a day. 3 Disk Dosing Unit 3 08/18/2018 Active folic acid 1 MG TabletIndications:Ch ronic respiratory failure with hypoxia, on home O2 therapy ([facility]) Take 1 Tab by mouth daily. 90 Tab 1 12/23/2018 Active levalbuterol (XOPENEX) 1.25 MG/3ML nebulizer solutionIndications: Stage 3 severe COPD by GOLD classification ([facility]) Inhale 1 mL via nebulizer 3 times a day. 270 mL 5 01/10/2019 Active ipratropium (ATROVENT) 0.02 % nebulizer solutionIndications: Stage 3 severe COPD by GOLD classification ([facility]) Inhale 2.5 mL via nebulizer 3 times a day. 270 mL 5 01/10/2019 Active mupirocin calcium (BACTROBAN) 2 % ointmentIndications: Herpes zoster without complication Apply topically to affected area 3 times a day for 14 days. To affected area for up to 14 days. 22 g 1 01/18/2019 9 Active documented as of this encounter (statuses as of 01/23/2019) Active Problems Problem Noted Date Chronic respiratory failure with hypoxia , on home O2 therapy 12/03/2017 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 documented as of this encounter (statuses as of 01/23/2019) Resolved Problems Problem Noted Date Resolved Date [...] as of this encounter (statuses as of 01/23/2019) Immunizations Name Administration Dates Next Due PPD [...] Progress Notes * Jackelyn Shelton OSA - 11/07/2018 11:[address] refill: Company: [employer]-Phone number [phone] Id# [id number] [address] [place] [address] Patient Phone Numbers Rx: Advair Diskus Dose:250-50 Quantity: 3 RX #[id number] 1 refill remaining RX#[id number] 3 refills remaining Provider: Abram Owens MD Refill # 2 of 4 Next Refill 04/05/2019 Enrollment Expires 08/18/2019 JAH [employer] Learning Manager 11/07/2018, 11:37 AM A refill order was placed for Advair Diskus from the [employer] program. Rx#[id number] A 90 day supply will be shipped to [address] [place] [address] and arrive in 7 to 10 business days. The next refill order is due 04/05/2019. JAH [employer] Learning Manager 01/23/2019, 8:22 AM documented in this encounter Plan of Treatment Upcoming Encounters Date Type Specialty Care Team Description 03/16/2019 Pharmacy Flatbed Press Operator, Pharmacy Reimbursement [address] [place] [address] [phone] 03/29/2019 Office Visit Internal Medicine Abram Owens MD [address] [place] [address] [place] [address] [phone] 04/06/2019 Pharmacy Flatbed Press Operator, Pharmacy Reimbursement [address] [place] [address] [phone] Health Maintenance Due Date Last Done Comments LUNG CANCER SCREENING YEARLY-USE SMARTSET [id number] 06/23/2018 06/23/2017 Influenza Vaccine (FLU shot) (#1) [...] GOLD classification ([facility])- Primary documented in this encounter Advance Directives Documents on File Type Date Recorded Patient Pump Servicer Helper 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
--- OUTSIDE RECORDS SUMMARY | 2023-04-08 23:22 | External Medical Summary | Summary of Care ---
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 90 Tab 1 12/23/2018 Active documented as of this encounter (statuses as of 03/21/2019) Active Problems Problem Noted Date Chronic respiratory failure with hypoxia , on home O2 therapy 12/03/2017 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 A 90 day supply will be shipped to [address] [place] [address] and arrive in 7 to 10 business days. The next refill order is due 06/01/2019. JAH [employer] Machine Skiver 03/21/2019, 3:15 PM * Chele Gallardo OSA - 01/03/2019 9:[address] refill: Company: [employer]-Phone number [phone] Id# [id number] [address] [place] [address] Patient Phone Numbers Rx: Daliresp Dose:500 MCG Quantity: 90 Provider: Abram Owens MD Provider Id#[id number] Refill # 2 of 3 Next Refill 05/26/2019 Enrollment Expires 06/06/2019 JAH Manriquez [employer] Machine Skiver 01/03/2019, 9:30 AM documented in this encounter Plan of Treatment Upcoming Encounters Date Type Specialty Care Team Description 04/06/2019 Pharmacy Human Resources Generalist, Pharmacy Reimbursement [address] [facility] [place] [address] 06/01/2019 Pharmacy Human Resources Generalist, Pharmacy Reimbursement [address] [place] [address] 06/02/2019 Office Visit Internal Medicine Abram Owens MD [address] [place] [address] [place] [phone] Health Maintenance Due Date Last Done Comments LUNG CANCER SCREENING YEARLY-USE SMARTSET [id number] 06/23/2018 06/23/2017 Influenza Vaccine (FLU shot) (#1) [...] Documents on File Type Date Recorded Patient Customer Assistant 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
--- OUTSIDE RECORDS SUMMARY | 2023-04-08 23:22 | External Medical Summary | Summary of Care ---
Author Name Unknown Organization [place] [address] Care Team Providers Care Asbestos Remover Name Role Phone Abram Owens MD Primary Care Provider [phone] Reason for Visit * Reason Comments Acute Encounter Details Date Type Department Care Team Description 01/11/2019 Office Visit Internal Medicine [address] [address] Rosibel Oliver PA-C [address] [place] [address] [place] [id number] Herpes zoster without complication*; Cellulitis of head except face Allergies No Known Allergiesdocumented as of this encounter (statuses as of 01/12/2019) Medications Medication Sig Dispensed Refills Start Date [...] with food 90 Tab 1 9 Active HYDROcodone-acetami nophen 5-325 mg per tab 5-325 MG per tabletIndications:B ronchitis, complicated Take 1 Tab by mouth every 6 hours as needed for Other (severe cough). 30 Tab 0 9 Active fluticasone-salmete rol (ADVAIR DISKUS) 250-50 MCG/DOSE inhalerIndications: SOB (shortness of breath) Inhale 1 Puff by mouth 2 times a day. 3 Disk Dosing Unit 3 9 Active folic acid 1 MG TabletIndications:C hronic respiratory failure with hypoxia, on home O2 therapy ([facility]) Take 1 Tab by mouth daily. 90 Tab 1 9 Active levalbuterol (XOPENEX) 1.25 MG/3ML nebulizer solutionIndications :Stage 3 severe COPD by GOLD classification ([facility]) Inhale 1 mL via nebulizer 3 times a day. 270 mL 5 9 Active ipratropium (ATROVENT) 0.02 % nebulizer solutionIndications :Stage 3 severe COPD by GOLD classification ([facility]) Inhale 2.5 mL via nebulizer 3 [...] 21 Tab 0 9 01/19/20 19 Active Benzocaine 20 % gel Apply to the mouth or throat as needed. 0 01/12/20 19 Discontinued docusate sodium (COLACE) 100 MG Capsule Take 100 mg by mouth 2 times a day as needed for Constipation. 0 01/12/20 19 Discontinued valACYclovir (VALTREX) 1000 MG TabletIndications:H erpes zoster without complication Take 1 Tab by mouth 3 times a day for 7 days. For 7 days for shingles 21 Tab 0 9 01/12/20 19 Discontinued amoxicillin-clavula afua (AUGMENTIN) 875-125 MG per TabletIndications:C ellulitis of head except face Take 1 Tab by mouth every 12 hours for 10 days. 20 Tab 0 9 01/12/20 19 Discontinued documented as of this encounter (statuses as of 01/12/2019) Active Problems Problem Noted Date Chronic respiratory failure with hypoxia , on home O2 therapy 12/03/2017 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 documented as of this encounter (statuses as of 01/12/2019) Resolved Problems Problem Noted Date Resolved Date [...] as of this encounter (statuses as of 01/12/2019) Immunizations Name Administration Dates Next Due PPD [...] Sign Reading Time Taken Comments Blood Pressure 114/70 01/11/2019 4:09 PM EDT Pulse 84 01/11/2019 4:09 PM EDT Temperature 37.3 C (99.2 F) 01/11/2019 4:09 PM ED T Respiratory Rate 20 01/11/2019 4:09 PM EDT Oxygen Saturation - - Inhaled Oxygen Concentration - - Weight 56.7 kg (125 lb) 01/11/2019 4:09 PM EDT Height - - Body Mass Index 19.58 09/23/2018 2:38 PM EDT documented in this encounter Progress Notes * Rosibel Oliver PA-C - 01/11/2019 4:18 PM EDT Subjective Jer Abreu Jr. is a 78 year old male. Chief Complaint Patient presents with Acute HPI: Here today with c/o sores on the right side of his neck and scalp and behind the R ear. Not sure if he had insect bites or what cause it. Started a week ago. The sore on neck and scalp open and scabbed over, red and tender around them. No oozing or pus drainage. It feels sore and sensitive, like a burning sensation. No h/o similar symptoms. No mouth sores or ulcers. No fever, chills, sweats,ear pain, ear drainage, loss of hearing, tinnitus, change in vision, eye pain, redness or swelling.No contacts with similar symptoms. PMH: Patient Active Problem List Diagnosis Code ADVANCE DIRECTIVE INFORMATION History of tobacco use Z87.891 Edentulous K00.0 Stage 3 severe COPD by GOLD classification ([facility]) J44.9 Oxygen dependent Z99.81 Chronic respiratory failure with hypoxia, on home O2 therapy ([facility]) J96.11, Z99.81 Gastroesophageal reflux disease with [...] nebulizer 3 times a day. 270mL 5 folic acid 1 MG Tablet Take 1 Tab by mouth daily. 90 Tab 1 fluticasone-salmeterol (ADVAIR DISKUS) 250-50 MCG/DOSE inhaler Inhale 1 Puff by mouth 2 times aday. 3 Disk Dosing Unit 3 HYDROcodone-acetaminophen 5-325 mg per tab 5-325 MG per tablet Take 1 Tab by mouth every 6 hours as needed for Other (severe cough). 30 Tab 0 PredniSONE (DELTASONE) 10 MG Tablet One daily with food 90 Tab 1 famotidine (PEPCID AC) 10 MG Tablet Take 1 Tab by mouth 2 times a day. For heartburn 60 Tab 5 roflumilast (DALIRESP) 500 MCG Tablet Take 500 mcg by mouth daily. levalbuterol (XOPENEX) 1.25 MG/3ML nebulizer solution Use Three times daily 270 mL 5 hydrocortisone acetate (ANUSOL-HC) 25 MG suppository Administer [...] 3 times a day. 270 mL 5 acetaminophen (TYLENOL) 500 MG Tablet Take 500 mg by mouth every 4 hours as needed for Pain. Review of patient's allergies indicates: No Known Allergies Review of Systems Constitutional: Negative. HENT: Negative. Skin: Positive for color change, rash and wound. Neurological: Negative. Objective BP 114/70 | Pulse 84 | Temp (Src) 99.2 (Tympanic) | Resp 20 | Wt 125 lbs (56.700kg) | BMI 19.58 kg/m | BSA 1.64 m Physical Exam Constitutional: He is oriented to person, place, and time. He appears well- developed and well-nourished. No distress. Neurological: He is alert and oriented to person, place, and time. Skin: Skin is warm and dry. Rash noted. He is not diaphoretic. There is erythema. No pallor. Scabbed sores on R neck and R scalp with crusting and surrounding erythema, closed dull/grayish vesicles of R posterior ear with redness, swelling, and warmth of pinna Nursing note and vitals reviewed. ASSESSMENT/PLAN: Herpes zoster without complication (Primary) - valACYclovir (VALTREX) 1000 MG Tablet; Take 1 Tab by mouth 3 times a day for 7 days. For 7 days for shingles Cellulitis of head except face - amoxicillin-clavulanate (AUGMENTIN) 875-125 MG per Tablet; Take 1 Tab by mouth every 12 hours for10 days. Follow Up: Return in about 1 week (around 01/18/2019). Rosibel Oliver PA-C documented in this encounter Nursing Notes * Ligia Connors LPN - 01/11/2019 4:11 PM EDT Pt is here for sore on the right side of his neck and ear Pt does not know if it is a bite or what Pt said he found it a week ago documented in this encounter Plan of Treatment Upcoming Encounters Date Type Specialty Care Team Description 01/18/2019 Office Visit Internal Medicine Rosibel Oliver PA-C [address] [place] [address] [place] [address] [phone] 01/23/2019 Pharmacy Cardio Clinician, Pharmacy Reimbursement [address] [place] [address] [phone] 03/16/2019 Pharmacy Cardio Clinician, Pharmacy Reimbursement [address] [place] [address] [phone] 03/29/2019 Office Visit Internal Medicine Abram Owens MD [address] [place] [address] [place] [address] [phone] Health Maintenance Due Date Last Done Comments LUNG CANCER SCREENING YEARLY-USE SMARTSET [id number] 06/23/2018 06/23/2017 Influenza Vaccine (FLU shot) (#1) [...] Primary Herpes zoster without mention of complication Cellulitis of head except face Cellulitis and abscess of other specified site documented in this encounter Advance Directives Documents on File Type Date Recorded Patient Wrapping Checker 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"
--- OUTSIDE RECORDS SUMMARY | 2023-04-08 23:22 | External Medical Summary | Summary of Care ---
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 270 mL 5 01/10/2019 Active predniSONE (DELTASONE) 10 MG TabletIndications:Se pollo chronic obstructive pulmonary disease (HCC) One daily with food 90 Tab 1 01/24/2019 Active documented as of this encounter (statuses as of 04/06/2019) Active Problems Problem Noted Date Chronic respiratory failure with hypoxia , on home O2 therapy 12/03/2017 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 documented as of this encounter (statuses as of 04/06/2019) Resolved Problems Problem Noted Date Resolved Date [...] as of this encounter (statuses as of 04/06/2019) Immunizations Name Administration Dates Next Due PPD [...] Progress Notes * Jackelyn Shelton OSA - 01/23/2019 8:[address] refill: Company: [employer]-Phone number [phone] Id# [id number] [address] [place] [id number] Patient Phone Numbers [place] [phone] Rx: Advair Diskus Dose:250-50 Quantity: 3 RX #[id number] Provider: Abram Owens MD Refill # 2 of 3 Next Refill 06/12/2019 Enrollment Expires 08/18/2019 [facility] [employer] Retort Firer 01/23/2019, 8:31 AM A refill order was placed for Advair Diskus from the [employer] program. Order # [id number] A 90 day supply will be shipped to [address] [place] [address] and arrive in 7 to 10 business days. The next refill order is due 06/19/2019 [facility] [employer] 04/06/2019, 11:54 AM documented in this encounter Plan of Treatment Upcoming Encounters Date Type Specialty Care Team Description 06/01/2019 Pharmacy Aquaculture Director, Pharmacy Reimbursement [address] [place] [address] [phone] 06/02/2019 Office Visit Internal Medicine Abram Owens MD [address] [place] [address] [place] [address] [phone] 06/19/2019 Pharmacy Aquaculture Director, Pharmacy Reimbursement [address] [place] [address] [phone] Health Maintenance Due Date Last Done Comments LUNG CANCER SCREENING YEARLY-USE SMARTSET [id number] 06/23/2018 06/23/2017 Influenza Vaccine (FLU shot) (#1) [...] Documents on File Type Date Recorded Patient Head Of Mobile 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
--- OUTSIDE RECORDS SUMMARY | 2023-04-08 23:22 | External Medical Summary | Summary of Care ---
Author Name Unknown Organization [place] [address] Care Team Providers Care Continuous Mining Machine Operator Name Role Phone Abram Owens MD Primary Care Provider Reason for Visit * Reason Comments Encounter Created in Error Encounter Details Date Type Department Care Team Description 01/24/2019 Telephone Internal Medicine [address] [address] Ohs, Khadijah Sunshine RN [address] [place] [address] [phone] Encounter Created in Error Allergies No Known Allergiesdocumented as of this encounter (statuses as of 01/24/2019) Medications Medication Sig Dispensed Refills Start Date [...] LOCATED [facility]IN [facility]) Take 1 Tab by mouth daily. 90 [...] days. 22 g 1 01/18/2019 9 Active predniSONE (DELTASONE) 10 MG TabletIndications:Se pollo chronic obstructive pulmonary disease (HCC) One daily with food 90 Tab 1 01/24/2019 Active documented as of this encounter (statuses as of 01/24/2019) Active Problems Problem Noted Date Chronic respiratory failure with hypoxia , on home O2 therapy 12/03/2017 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 documented as of this encounter (statuses as of 01/24/2019) Resolved Problems Problem Noted Date Resolved Date [...] as of this encounter (statuses as of 01/24/2019) Immunizations Name Administration Dates Next Due PPD [...] encounter Miscellaneous Notes * Telephone Encounter - OhsKhadijah RN - 01/24/2019 2:15 PM EDT Error documented in this encounter Plan of Treatment Upcoming Encounters Date Type Specialty Care Team Description 03/16/2019 Pharmacy Photo Finisher, Pharmacy Reimbursement [address] [place] [address] [phone] 03/29/2019 Office Visit Internal Medicine Abram Owens MD [address] [place] [address] [place] [id number] 04/06/2019 Pharmacy Photo Finisher, Pharmacy Reimbursement [address] [place] [address] [phone] Health Maintenance Due Date Last Done Comments LUNG CANCER SCREENING YEARLY-USE SMARTSET [id number] 06/23/2018 06/23/2017 Influenza Vaccine (FLU shot) (#1) [...] Documents on File Type Date Recorded Patient Fur Polisher 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
--- OUTSIDE RECORDS SUMMARY | 2023-04-08 23:22 | External Medical Summary | Summary of Care ---
Author Name Unknown Organization [place] [address] Care Team Providers Care Enterprise Application Architect Name Role Phone Abram Owens MD Primary Care Provider [phone] Reason for Visit * Reason Comments case management Encounter Details Date Type Department Care Team Description 01/24/2019 Telephone Internal Medicine [address] [address] Ohs, Khadijah Sunshine RN [address] [place] [address] [phone] case management Allergies No Known Allergiesdocumented as of this [...] with hypoxia, on home O2 therapy ([facility]) Take 1 Tab by mouth daily. 90 Tab 1 12/23/2018 Active levalbuterol (XOPENEX) 1.25 MG/3ML nebulizer solutionIndications: Stage 3 severe COPD by GOLD classification ([facility]) Inhale 1 mL via nebulizer 3 times [...] encounter Miscellaneous Notes * Telephone Encounter - OhKhadijah pruett RN - 01/24/2019 2:09 PM EDT Daniel needed his Prednisone refilled. Message to PCP and reordered. He says the "bumps" on his neck and scalp are improved. He has had diarrhea since he started the Augmentin which was done yesterday. Hopes the diarrhea resolves now. Still using the Bactroban ointment to the areas. The sore on his scalp remains pretty tender. Feels his hair gets in it and irritates. He says his breathing is baseline. Encouraged to call if the sores worsens or don't completely. He realizes if herpes this could take some time. Encouraged to call me with any questions or concerns. Khadijah Rehman RN documented in this encounter Plan of Treatment Upcoming Encounters Date Type Specialty Care Team Description 03/16/2019 Pharmacy Aircraft Refueller, Pharmacy Reimbursement [address] [place] [address] 03/29/2019 Office Visit Internal Medicine Abram Owens MD [address] [place] [address] [place] [phone] 04/06/2019 Pharmacy Aircraft Refueller, Pharmacy Reimbursement [address] [place] [address] [phone] Health Maintenance Due Date Last Done Comments LUNG CANCER SCREENING YEARLY-USE SMARTSET [id number] 06/23/2018 06/23/2017 Influenza Vaccine (FLU shot) (#1) [...] Documents on File Type Date Recorded Patient Bleach Liquor Maker 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
--- OUTSIDE RECORDS SUMMARY | 2023-04-08 23:22 | External Medical Summary | Summary of Care ---
Author Name Unknown Organization [place] [address] Care Team Providers Care Consultative Sales Associate Name Role Phone Abram Quiroz MD Primary Care Provider Reason for Visit * Reason Comments Medication Refill Encounter Details Date Type Department Care Team Description 04/25/2019 Refill Internal Medicine [address] [address] OhsKhadijah RN [address] [place] [address] [phone] Stage 3 severe COPD by GOLD classification ([facility]) Allergies No Known Allergiesdocumented as of this encounter (statuses as of 04/25/2019) Medications Medication Sig Dispensed Refills Start Date [...] 3 9 Active folic acid 1 MG TabletIndications: Chronic respiratory failure with hypoxia, on home O2 therapy (HCC) Take 1 Tab by mouth daily. 90 Tab 1 9 Active predniSONE (DELTASONE) 10 MG TabletIndications: Severe chronic obstructive pulmonary disease (HCC) One daily with food 90 Tab 1 9 Active ipratropium (ATROVENT) 0.02 % nebulizer solutionIndication s:Stage 3 severe COPD by GOLD classification ([facility]) Inhale 2.5 mL via nebulizer 3 times a day. 270 mL 5 9 Active levalbuterol (XOPENEX) 1.25 MG/3ML nebulizer solutionIndication s:Stage 3 severe COPD by GOLD classification ([facility]) Inhale 1 mL via nebulizer 3 times a day. 270 mL 5 9 Active levalbuterol (XOPENEX) 1.25 MG/3ML nebulizer solution Use Three times daily 270 mL 5 8 04/25/20 19 Discontinued levalbuterol (XOPENEX) 1.25 MG/3ML nebulizer solutionIndication s:Stage 3 severe COPD by GOLD classification ([facility]) Inhale 1 mL via nebulizer 3 times a day. 270 mL 5 9 04/25/20 19 Discontinued ipratropium (ATROVENT) 0.02 % nebulizer solutionIndication s:Stage 3 severe COPD by GOLD classification ([facility]) Inhale 2.5 mL via nebulizer 3 times a day. 270 mL 5 9 04/25/20 19 Discontinued(Re fill) documented as of this encounter (statuses as of 04/25/2019) Active Problems Problem Noted Date Chronic respiratory failure with hypoxia , on home O2 therapy 12/03/2017 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 Authorizing Provider: ABRAM QUIROZ levalbuterol (XOPENEX) 1.25 MG/3ML nebuliz*270 mL 5 Sig: Inhale 1 mL via nebulizer 3 times a day. Authorizing Provider: ABRAM QUIROZ ------ * Telephone Encounter - Khadijah Rehman RN - 04/25/2019 2:50 PM EST Daniel needs refills for his nebulizer med's. This will now go through [facility]. Thanks, Khadijah Rehman, RN documented in this encounter Plan of Treatment Upcoming Encounters Date Type Specialty Care Team Description 06/01/2019 Pharmacy Material Control Manager, Pharmacy Reimbursement [address] [place] [address] [phone] 06/02/2019 Office Visit Internal Medicine Abram Quiroz MD [address] [place] [address] [place] [address] [phone] 06/19/2019 Pharmacy Material Control Manager, Pharmacy Reimbursement [address] [place] [address] [phone] Health Maintenance Due Date Last Done Comments LUNG CANCER SCREENING YEARLY-USE SMARTSET [id number] 06/23/2018 06/23/2017 Influenza Vaccine (FLU shot) (#1) [...] Documents on File Type Date Recorded Patient Quiller Hand 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
--- OUTSIDE RECORDS SUMMARY | 2023-04-08 23:22 | External Medical Summary | Summary of Care ---
Author Name Unknown Organization [place] [address] Care Team Providers Care Temperature Logging Operator Name Role Phone Abram Quiroz MD Primary Care Provider Reason for Visit * Reason Comments Medication Refill Encounter Details Date Type Department Care Team Description 01/24/2019 Refill Internal Medicine [address] [address] OhsKhadijah RN [address] [place] [address] [phone] Severe chronic obstructive pulmonary disease (HCC) Allergies [...] For heartburn 60 Tab 5 8 Active fluticasone-salmete rol (ADVAIR DISKUS) 250-50 MCG/DOSE inhalerIndications: SOB (shortness of breath) Inhale 1 Puff by mouth 2 times a day. 3 Disk Dosing Unit 3 9 Active folic acid 1 MG TabletIndications:C hronic respiratory failure with hypoxia, on home O2 therapy ([facility]) Take 1 Tab by mouth daily. 90 Tab 1 9 Active levalbuterol (XOPENEX) 1.25 MG/3ML nebulizer solutionIndications :Stage 3 severe COPD by GOLD classification ([facility]) Inhale 1 mL via nebulizer 3 times a day. 270 mL 5 9 Active ipratropium (ATROVENT) 0.02 % nebulizer solutionIndications :Stage 3 severe COPD by GOLD classification ([facility]) Inhale 2.5 mL via nebulizer 3 times a day. 270 mL 5 9 Active mupirocin calcium (BACTROBAN) 2 % ointmentIndications :Herpes zoster without complication Apply topically to affected area 3 times a day for 14 days. To affected area for up to 14 days. 22 g 1 9 02/02/20 19 Active predniSONE (DELTASONE) 10 MG TabletIndications:S evere chronic obstructive pulmonary disease (HCC) One daily with food 90 Tab 1 9 Active PredniSONE (DELTASONE) 10 MG TabletIndications:S evere chronic obstructive pulmonary disease (HCC) One daily with food 90 Tab 1 9 01/25/20 19 Discontinued documented as of this encounter [...] Travel End No recent travel history krystle ilashley. documented as of this encounter Miscellaneous Notes * Telephone Encounter - Abram Quiroz MD - 01/24/2019 8:05 AM EDT Signed Prescriptions: Disp Refills predniSONE (DELTASONE) 10 MG Tablet 90 Tab 1 Sig: One daily with foodAuthorizing Provider: ABRAM QUIROZ * Telephone Encounter - Abram Quiroz MD - 01/24/2019 8:05 AM EDT Signed Prescriptions: Disp Refills predniSONE (DELTASONE) 10 MG Tablet 90 Tab 1 Sig: One daily with food Authorizing Provider: ABRAM QUIROZ * Telephone Encounter - Khadijah Rehman RN - 01/24/2019 7:48 AM EDT Daniel needs his Prednisone refilled. Thanks, Khadijah Rehman RN documented in this encounter Plan of Treatment Upcoming Encounters Date Type Specialty Care Team Description 03/16/2019 Pharmacy Kettle Worker, Pharmacy Reimbursement [address] [facility] [place] [address] [phone] 03/29/2019 Office Visit Internal Medicine Abram Quiroz MD [address] [place] [address] [place] [address] 04/06/2019 Pharmacy Kettle Worker, Pharmacy Reimbursement [address] [place] [address] Health Maintenance Due Date Last Done Comments LUNG CANCER SCREENING YEARLY-USE SMARTSET [id number] 06/23/2018 06/23/2017 Influenza Vaccine (FLU shot) (#1) [...] Documents on File Type Date Recorded Patient Brick Kiln Burner 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
--- OUTSIDE RECORDS SUMMARY | 2023-04-08 23:22 | External Medical Summary | Summary of Care ---
Author Name Unknown Organization [place] [address] Care Team Providers Care Pin Machine Operator Name Role Phone Abram Owens MD Primary Care Provider [phone] Encounter Details Date Type Department Care Team Description 03/24/2019 Customs Port DirectorDistrict Administrator Medicine [address] [address] Ohs, Khadijah Sunshine RN [address] [place] [address] [place] [id number] Stage 3 severe COPD by GOLD classification ([facility])*; Oxygen dependent; Bronchitis, complicated Allergies No Known Allergiesdocumented as of this encounter (statuses as of 03/27/2019) Medications Medication Sig Dispensed Refills Start Date [...] classification ([facility]) Inhale 1 mL via nebulizer 3 [...] as of this encounter (statuses as of 03/27/2019) Active Problems Problem Noted Date Chronic respiratory failure with hypoxia , on home O2 therapy 12/03/2017 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 No S: Reports: Daniel says he is doing pretty good. His breathing is baseline. No increased coughing or SOB. He does have an occasional productive cough for white thick mucus. Using the nebulizer and inhalers as directed and taking all medicines as directed. He gets help through the pharmacy for his Daliresp. He says his appetite is good. Voiding well and having regular BM's. He walks daily. Admits he cannot walk far but walks as far as he can and then rests. Wearing 02 continuously at 2 LPM. He reports he is getting "bad eyes". Asking about optometry in [facility]. I gave him a couple names and phone numbers. He doesn't have vision insurance for coverage. Advised to ask how much an evaluation would cost when he calls. Encouraged to call with any change in breathing. He is agreeable. O: Phone visit for CM annual comprehensive assessment. Medications: takes all medications as prescribed. A: [...] With: Grocery Shopping, Cooking food, Routine Housework, Taking medications and Attending to safety Cognitive and Mental Health: denies problems, alert and oriented x 3 and able to communicate, understand instructions, process information. P: Customs Port Director Interventions: Reinforce Self Management Action Plan established at previous visit Reinforced "call back instructions" if weight fails to return to baseline, urine outputs decrease, symptoms increase Reinforced sodium restriction Reinforced safety education / fall prevention Reinforced [...] goals achievement: Plan to call patient in about 3 months or sooner if needed to reassess and update plan of care, instructed to call Customs Port Director or Primary Care Provider with change in symptoms or as needed before next follow-up, verbalizes understanding and agrees with plan. Khadijah Rehman RN Outpatient Customs Port Director documented in this encounter Plan of Treatment Upcoming Encounters Date Type Specialty Care Team Description 04/06/2019 Pharmacy Call Center Operations Manager, Pharmacy Reimbursement [address] [place] [address] [phone] 06/01/2019 Pharmacy Call Center Operations Manager, Pharmacy Reimbursement [address] [place] [address] [phone] 06/02/2019 Office Visit Internal Medicine Abram Owens MD [address] [place] [address] [place] [address] Health Maintenance Due Date Last Done Comments LUNG CANCER SCREENING YEARLY-USE SMARTSET 25668 06/23/2018 06/23/2017 Influenza Vaccine (FLU shot) (#1) [...] severe COPD by GOLD classification (HCC)- Primary Oxygen dependent Dependence on supplemental oxygen Bronchitis, complicated Bronchitis, not specified as acute or chronic documented in this encounter Advance Directives Documents on File Type Date Recorded Patient Secondary Spanish Teacher 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
--- OUTSIDE RECORDS SUMMARY | 2023-04-08 23:23 | External Medical Summary | Summary of Care ---
Author Name Unknown Organization [place] [address] Care Team Providers Care Shot Dropper Name Role Phone Abram Owens MD Primary Care Provider [phone] Reason for Visit * Reason Comments Patient Assistance Program Encounter Details Date Type Department Care Team Description 11/02/2018 Pharmacy Pharmacy, [place] [address], [place] [phone] Coordinator, Pharmacy [facility] [address], [place] [phone] COPD, severe (HCC)* Allergies No Known Allergiesdocumented as of this encounter (statuses as of 11/02/2018) Medications Medication Sig Dispensed Refills Start Date End Date Status MEDICAL INSTRUCTIONSIndicati ons:Severe chronic obstructive pulmonary disease (HCC),COPD exacerbation (HCC) Nebulizer and tubing 1 Each 1 03/12/2017 Active THIAMINE (VITAMIN B-1) 100 MG Tablet [...] day as needed for Hemorrhoids. 0 Active Benzocaine 20 % gel Apply to the mouth or throat as needed. 0 Active docusate sodium (COLACE) 100 MG Capsule Take 100 mg by mouth 2 times a day as needed for Constipation. 0 Active Multiple Vitamins-Minerals (MULTIVITAMIN ADULTS) TABS Take by mouth daily. 0 Active levalbuterol (XOPENEX) 1.25 MG/3ML nebulizer solution Use Three times daily 270 mL 5 11/25/2017 Active roflumilast (DALIRESP) 500 MCG Tablet Take 500 mcg by mouth daily. 0 Active ipratropium (ATROVENT) 0.02 % nebulizer solutionIndications: Severe chronic obstructive pulmonary disease (HCC),Stage 3 severe COPD by GOLD classification ([facility]) Inhale 2.5 mL via nebulizer 3 times a day. 270 mL 5 02/28/2018 Active famotidine (PEPCID AC) 10 MG TabletIndications:Ga stroesophageal reflux disease with esophagitis Take 1 Tab by mouth 2 times a day. For heartburn 60 Tab 5 06/01/2018 Active folic acid 1 MG TabletIndications:Ch ronic respiratory failure with hypoxia, on home O2 therapy ([facility]) Take 1 Tab by mouth daily. 90 Tab 1 06/23/2018 Active PredniSONE (DELTASONE) 10 MG TabletIndications:Se pollo chronic obstructive pulmonary disease (HCC) One daily with food 90 Tab 1 07/18/2018 Active HYDROcodone-acetamin ophen 5-325 mg per tab 5-325 MG per tabletIndications:Br onchitis, complicated Take 1 Tab by mouth every 6 hours as needed for Other (severe cough). 30 Tab 0 08/12/2018 Active fluticasone-salmeter ol (ADVAIR DISKUS) 250-50 MCG/DOSE inhalerIndications:S OB (shortness of breath) Inhale 1 Puff by mouth 2 times a day. 3 Disk Dosing Unit 3 08/18/2018 Active levalbuterol (XOPENEX) 1.25 MG/3ML nebulizer solution Inhale 1 mL via nebulizer 3 times a day. 60 mL 1 09/29/2018 Active documented as of this encounter (statuses as of 11/02/2018) Active Problems Problem Noted Date Chronic respiratory failure with hypoxia , on home O2 therapy 12/03/2017 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 A shipment was sent to the patient on 10/20/2018. [facility] to schedule refill for 01/02/2019 JAH Conner Pharmaceutical Manager [place] 11/02/2018, 11:17 AM * Chele Gallardo OSA - 10/18/2018 9:54 AM EDT Follow up needs made to company Coverage:Medicare A and B (No D) [address] [facility] [address] Patient Phone Numbers RX:Daliresp Dose: 500 MCG Quanity 90 Provider:Abram Owens MD ID# [id number] Please call [employer] to verify status of application. Phone number: [phone] Forms sent to provider:10/04/2018, application not processed as of 10/18/2018 JAH Manriquez Pharmaceutical Manager [place] 10/18/2018, 9:55 AM documented in this encounter Plan of Treatment Upcoming Encounters Date Type Specialty Care Team Description 11/07/2018 Pharmacy Medical Examiner, Pharmacy Reimbursement [address] [place] [address] 01/03/2019 Pharmacy Medical Examiner, Pharmacy Reimbursement [address] [place] [address] 03/29/2019 Office Visit Internal Medicine Abram Owens MD [address] [place] [address] [place] [address] [phone] Health Maintenance Due Date Last Done Comments LUNG CANCER SCREENING YEARLY-USE SMARTSET [id number] 06/23/2018 06/23/2017 DIABETES SCREEN EVERY 3 YRS-AGE 45 AND ABOVE 12/27/2020 12/27/2017, 06/23/2017, 06/18/2017, Additional history exists DTaP,Tdap,and Td Vaccines (2 - Td) 10/21/2027 10/20/2017 PNEUMOCOCCAL ADULT 65 YRS AND OVER Completed 10/20/2017, 04/27/2017 Influenza Vaccine (FLU shot) Completed , 03/12/2017, 03/12/2009, Additional history exists MENINGOCOCCAL (MENACTRA) Aged Out No longer eligible based on patient's age to complete this topic documented as of this encounter Implants Not on filedocumented as of this encounter Visit Diagnoses Diagnosis COPD, severe (HCC)- Primary Chronic airway obstruction, not elsewhere classified documented in this encounter Advance Directives Documents on File Type Date Recorded Patient Terrazzo Tile Maker 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
--- OUTSIDE RECORDS SUMMARY | 2023-04-08 23:23 | External Medical Summary | Summary of Care ---
Author Name Unknown Organization [place] [address] Care Team Providers Care Courier Delivery Driver Name Role Phone Abram Owens MD Primary Care Provider [phone] Encounter Details Date Type Department Care Team Description 12/23/2018 Marine MechanicHigh School Band Teacher Medicine [address] [address] [place], Khadijah Sunshine RN [address] [place] [address] [place] [phone] Oxygen dependent*; Stage 3 severe COPD by GOLD classification (HCC); Severe chronic obstructive pulmonary disease (HCC) Allergies No Known Allergiesdocumented as of this encounter (statuses as of 12/23/2018) Medications Medication Sig Dispensed Refills Start Date [...] 0 Active ipratropium (ATROVENT) 0.02 % nebulizer solutionIndications :Severe chronic obstructive pulmonary disease (HCC),Stage 3 severe COPD by GOLD classification ([facility]) Inhale 2.5 mL via nebulizer 3 times a day. 270 mL 5 8 Active famotidine (PEPCID AC) 10 MG TabletIndications:G astroesophageal reflux disease with esophagitis Take 1 Tab by mouth 2 times a day. For heartburn 60 Tab 5 8 Active PredniSONE (DELTASONE) 10 MG TabletIndications:S evere chronic obstructive pulmonary disease ([facility]) [...] 3 times a day. 60 mL 1 9 Active folic acid 1 MG TabletIndications:C hronic respiratory failure with hypoxia, on home O2 therapy ([facility]) Take 1 Tab by mouth daily. 90 Tab 1 9 Active MEDICAL INSTRUCTIONSIndicat ions:Severe chronic obstructive pulmonary disease (HCC),COPD exacerbation (HCC) Nebulizer and tubing 1 Each 1 7 12/24/19 19 Discontinued documented as of this encounter (statuses as of 12/23/2018) Active Problems Problem Noted Date Chronic respiratory failure with hypoxia , on home O2 therapy 12/03/2017 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 No S: Reports: Daniel says he is "hanging in there". He reports he needs a refill for his Folic Acid. Message to Dr Owens and sent to his pharmacy. He is wearing his 02 all of the time. He says his breathing is no worse but no better. He follows with [facility] pulmonology. He usually see Tamara ROSARIO. He saw him about 1 month ago and no changes. He gets his Daliresp through pharmacy reimbursement Looks like they will get refilled the end of this month. Daniel has about 20 tablets remaining. He says he is eating ok. He does take the Prednisone daily and that helps his appetite. He doesn't have a scale at home. He thinks he is staying about the same in weight. Using a cane to ambulate and reports that "helps". He reports he has a very hard time going up steps. Suggested some in home PT but he declines at this time. He does have a cough and produces white mucus. He replied "if the color changes I will call you". Using the nebulizer and inhalers as directed. Encouraged to call if increased cough, chest congestion, increased SOB or increased fatigue. He is agreeable. Him and his are coming into [employer] [facility] [employer] today for 02 tanks, Cautioned due to the extreme heat and humidity today. He says "I know I stay in the air conditioning when it is like this". O: Phone visit for 3 month assessment and f/u. Medications: takes all medications as prescribed. A: [...] to communicate, understand instructions, process information. P: Marine Mechanic Interventions: Reinforce Self Management Action Plan established at previous visit Reinforced "call back instructions" if weight fails to return to baseline, urine outputs decrease, symptoms increase Contacted managing provider Reinforced safety education / fall prevention Reinforced medication regimen - timing / dosing / purpose Medication optimization with Provider COPD: Pt instructed to: -Call with increased [...] call patient in about 3 months or less if needed to reassess and update plan of care, instructed to call Marine Mechanic or Primary Care Provider with change in symptoms or as needed before nextfollow-up, verbalizes understanding and agrees with plan. Khadijah Rehman RN Outpatient Marine Mechanic documented in this encounter Plan of Treatment Upcoming Encounters Date Type Specialty Care Team Description 01/03/2019 Pharmacy Gis Specialist, Pharmacy Reimbursement [address] [place] [address] 01/23/2019 Pharmacy Gis Specialist, Pharmacy Reimbursement [address] [place] [address] 03/29/2019 Office Visit Internal Medicine Abram Owens MD [address] [place] [address] [place] [address] Health Maintenance Due Date Last Done Comments LUNG CANCER SCREENING YEARLY-USE SMARTSET [address] 06/23/2018 06/23/2017 Influenza Vaccine (FLU shot) (#1) [...] as of this encounter Visit Diagnoses Diagnosis Oxygen dependent- Primary Dependence on supplemental oxygen Stage 3 severe COPD by GOLD classification (HCC) Severe chronic obstructive pulmonary disease (HCC) Chronic airway obstruction, not elsewhere classified documented in this encounter Advance Directives Documents on File Type Date Recorded Patient Gear Lapping Machine Operator 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
--- OUTSIDE RECORDS SUMMARY | 2023-04-08 23:23 | External Medical Summary | Summary of Care ---
Author Name Unknown Organization [place] [address] Care Team Providers Care Microfilm Camera Operator Name Role Phone Abram Owens MD Primary Care Provider [phone] Reason for Visit * Reason Comments Patient Assistance Program Encounter Details Date Type Department Care Team Description 11/07/2018 Pharmacy Pharmacy, [place] [address], [place] [phone] Coordinator, Pharmacy Reimbursement [address], [place] [phone] COPD, severity to be determined (HCC)* Allergies No Known Allergiesdocumented as of this encounter (statuses as of 11/07/2018) Medications Medication Sig Dispensed Refills Start Date [...] (HCC),Stage 3 severe COPD by GOLD classification ([facility] [...] home O2 therapy ([facility]) Take 1 Tab by [...] as of this encounter (statuses as of 11/07/2018) Active Problems Problem Noted Date Chronic respiratory failure with hypoxia , on home O2 therapy 12/03/2017 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 documented as of this encounter Progress Notes * Jackelyn Shelton OSA - 11/07/2018 11:30 AM EDT A refill order was placed for Advair Diskus from the [employer] program. Order #[id number]. A 90 day supply will be shipped to [address] [place] [address] and arrive in 7 to 10 business days. The next refill order is due 01/23/2019 Per [employer] rep Pt has 1 refill remaining on RX#[id number] and 3 remaining on RX#[id number] JAH Conner Pharmaceutical Speedboat Driver 11/07/2018, 11:32 AM * Chele Gallardo OSA - 08/24/2018 10:[address] refill: Company: [employer]-Phone number [phone] Id# [id number] [address] [place] [address] Patient Phone Numbers Rx: Advair Diskus Dose:250-50 Quantity: 3 RX #Please update Provider: Abram Owens MD Refill # 1 of 3 Next Refill 01/30/2019 Enrollment Expires 08/18/2019 JAH Manriquez Pharmaceutical Speedboat Driver 08/24/2018, 10:20 AM documented in this encounter Plan of Treatment Upcoming Encounters Date Type Specialty Care Team Description 01/03/2019 Pharmacy Senior Inspector, Pharmacy Reimbursement [address] [place] [facility] [place] [address] [phone] 01/23/2019 Pharmacy Senior Inspector, Pharmacy Reimbursement [address] [place] [address] [phone] 03/29/2019 Office Visit Internal Medicine Abram Owens MD [address] [place] [address] [place] [address] Health Maintenance Due Date Last Done Comments LUNG CANCER SCREENING YEARLY-USE SMARTSET 01156 06/23/2018 06/23/2017 DIABETES SCREEN EVERY 3 YRS-AGE [...] of this encounter Visit Diagnoses Diagnosis COPD, severity to be determined (HCC)- Primary Chronic airway obstruction, not elsewhere classified documented in this encounter Advance Directives Documents on File Type Date Recorded Patient Field Care Coordinator 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
--- OUTSIDE RECORDS SUMMARY | 2023-04-08 23:23 | External Medical Summary | Summary of Care ---
Author Name Unknown Organization [place] [address] Care Team Providers Care Applications Consultant Name Role Phone Abram Owens MD Primary Care Provider [phone] Reason for Visit * Reason Comments Patient Assistance Program Encounter Details Date Type Department Care Team Description 01/03/2019 Pharmacy Pharmacy, [place] [address] [place], [place] [phone] Coordinator, Pharmacy Reimbursement [address] [place], [place] [phone] Stage 3 severe COPD by GOLD classification (HCC)* Allergies No Known Allergiesdocumented as of this encounter (statuses as of 01/03/2019) Medications Medication Sig Dispensed Refills Start Date [...] a day. 60 mL 1 09/29/2018 Active folic acid 1 MG TabletIndications:Ch ronic respiratory failure with hypoxia, on home O2 therapy ([facility]) Take 1 Tab by mouth daily. 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 documented as of this encounter (statuses as of 01/03/2019) Resolved Problems Problem Noted Date Resolved Date [...] as of this encounter (statuses as of 01/03/2019) Immunizations Name Administration Dates Next Due PPD [...] Progress Notes * Chele Gallardo OSA - 10/18/2018 1:[address] refill: Company: [employer]-Phone number [phone] Id# [id number] [address] [place] [address] Patient Phone Numbers Rx: Daliresp Dose:500 MCG Quantity: 90 Provider: Abram Owens MD Provider Id#[id number] Refill # 1 of 3 Next Refill 03/20/2019 Enrollment Expires 06/06/2019 JAH Manriquez Pharmaceutical Jockey'S Agent 10/18/2018, 1:20 PM A refill order was placed for Daliresp from the [employer] program. A 90 day supply will be shipped to [address] [place] [address] and arrive in 7 to 10 business days. The next refill order is due 03/16/2019. JAH Manriquez Pharmaceutical Jockey'S Agent 01/03/2019, 9:27 AM documented in this encounter Plan of Treatment Upcoming Encounters Date Type Specialty Care Team Description 01/23/2019 Pharmacy Shotgun Shell Assembly Machine Operator, Pharmacy Reimbursement [address] [facility] [place] [id number] 03/16/2019 Pharmacy Shotgun Shell Assembly Machine Operator, Pharmacy Reimbursement [address] [place] [address] 03/29/2019 Office Visit Internal Medicine Abram Owens MD [address] [place] [address] [place] [phone] Health Maintenance Due Date Last Done Comments LUNG CANCER SCREENING YEARLY-USE SMARTSET [address] 06/23/2018 06/23/2017 Influenza Vaccine (FLU shot) (#1) [...] Documents on File Type Date Recorded Patient Budget Clerk 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
--- OUTSIDE RECORDS SUMMARY | 2023-04-08 23:23 | External Medical Summary | Summary of Care ---
Author Name Unknown Organization [place] [address] Care Team Providers Care Senior Software Engineer Name Role Phone Abram Owens MD Primary Care Provider [phone] Reason for Visit * Reason Comments FYI Encounter Details Date Type Department Care Team Description 01/11/2019 Telephone Internal Medicine [address] [address] Ohs, Khadijah Sunshine RN [address] [place] [address] [place] [address] [phone] FYI Allergies No Known Allergiesdocumented as of this encounter (statuses as of 01/11/2019) Medications Medication Sig Dispensed Refills Start Date [...] O2 therapy ([facility]) Take 1 Tab by mouth daily. 90 Tab 1 12/23/2018 Active levalbuterol (XOPENEX) 1.25 MG/3ML nebulizer solutionIndications: Stage 3 severe COPD by GOLD classification ([facility]) Inhale 1 mL via nebulizer 3 times a day. 270 mL 5 01/10/2019 Active ipratropium (ATROVENT) 0.02 % nebulizer solutionIndications: Stage 3 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 270 mL 5 01/10/2019 Active documented as of this encounter (statuses as of 01/11/2019) Active Problems Problem Noted Date Chronic respiratory failure with hypoxia , on home O2 therapy 12/03/2017 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 Reports areas are itchy. He is scheduled for 4:10pm this afternoon for evaluation. Just AUGUSTINE Rehman RN documented in this encounter Plan of Treatment Upcoming Encounters Date Type Specialty Care Team Description 01/11/2019 Office Visit Internal Medicine Rosibel Oliver PA-C [address] [place] [address] [place] [address] [phone] 01/23/2019 Pharmacy Lodge Officer, Pharmacy Reimbursement [address] [place] [address] 03/16/2019 Pharmacy Lodge Officer, Pharmacy Reimbursement [address] [place] [address] 03/29/2019 Office Visit Internal Medicine Abram Owens MD [address] [place] [address] [place] [address] [phone] Health Maintenance Due Date Last Done Comments LUNG CANCER SCREENING YEARLY-USE SMARTSET 67270 06/23/2018 06/23/2017 Influenza Vaccine (FLU shot) (#1) [...] Documents on File Type Date Recorded Patient Sheet Heater 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
--- OUTSIDE RECORDS SUMMARY | 2023-04-08 23:23 | External Medical Summary | Summary of Care ---
Author Name Unknown Organization [place] [address] Care Team Providers Care Water Quality Control Engineer Name Role Phone Abram Quiroz MD Primary Care Provider Reason for Visit * Reason Comments Medication Refill Encounter Details Date Type Department Care Team Description 01/10/2019 Refill Internal Medicine [address] [address] OhsKhadijah RN [address] [place] [address] [phone] Stage 3 severe COPD by GOLD classification (HCC)*; Severe chronic obstructive pulmonary disease (HCC) Allergies No Known Allergiesdocumented as of this encounter (statuses as of 01/10/2019) Medications Medication Sig Dispensed Refills Start Date [...] MG TabletIndications:S evere chronic obstructive pulmonary disease ([facility]) One daily with food 90 Tab 1 [...] hypoxia, on home O2 therapy ([facility]) Take 1 Tab by mouth daily. 90 Tab 1 9 Active levalbuterol (XOPENEX) 1.25 MG/3ML nebulizer solutionIndications :Stage 3 severe COPD by GOLD classification ([facility]) Inhale 1 mL via nebulizer 3 times a day. 270 mL 5 9 Active ipratropium (ATROVENT) 0.02 % nebulizer solutionIndications :Stage 3 severe COPD by GOLD classification ([facility]) Inhale 2.5 mL via nebulizer 3 times a day. 270 mL 5 9 Active ipratropium (ATROVENT) 0.02 % nebulizer solutionIndications :Severe chronic obstructive pulmonary disease (HCC),Stage 3 severe COPD by GOLD classification ([facility]) Inhale 2.5 mL via nebulizer 3 times a day. 270 mL 5 8 01/11/20 19 Discontinued levalbuterol (XOPENEX) 1.25 MG/3ML nebulizer solution Inhale 1 mL via nebulizer 3 times a day. 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 documented as of this encounter (statuses as of 01/10/2019) Resolved Problems Problem Noted Date Resolved Date [...] as of this encounter (statuses as of 01/10/2019) Immunizations Name Administration Dates Next Due PPD [...] encounter Miscellaneous Notes * Telephone Encounter - Ophelia Gerard LPN - 01/10/2019 4:16 PM EDT Signed Prescriptions: Disp Refills levalbuterol (XOPENEX) 1.25 MG/3ML nebuliz*270 mL 5 Sig: Inhale 1 mL via nebulizer 3 times a day.Authorizing Provider: ABRAM QUIROZ ipratropium (ATROVENT) 0.02% nebulizer so*270 mL 5 Sig: Inhale 2.5 mL via nebulizer 3 times a day.Authorizing Provider: ABRAM QUIROZ * Telephone Encounter - Khadijah Rehman RN - 01/10/2019 4:03 PM EDT Daniel needs his nebulizer medicines reordered. Will need scripts faxed to [facility] at [phone]. Thanks, Khadijah Rehman, RN documented in this encounter Plan of Treatment Upcoming Encounters Date Type Specialty Care Team Description 01/23/2019 Pharmacy Hospice Educator, Pharmacy Reimbursement [address] [place] [address] [phone] 03/16/2019 Pharmacy Hospice Educator, Pharmacy Reimbursement [address] [place] [address] [phone] 03/29/2019 Office Visit Internal Medicine Abram Quiroz MD [address] [place] [address] [place] [address] Health Maintenance Due Date Last Done Comments LUNG CANCER SCREENING YEARLY-USE SMARTSET 04993 06/23/2018 06/23/2017 Influenza Vaccine (FLU shot) (#1) [...] severe COPD by GOLD classification (HCC)- Primary Severe chronic obstructive pulmonary disease (HCC) Chronic airway obstruction, not elsewhere classified documented in this encounter Advance Directives Documents on File Type Date Recorded Patient Revenue Cycle Manager 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
--- OUTSIDE RECORDS SUMMARY | 2023-04-08 23:23 | External Medical Summary | Summary of Care ---
Author Name Unknown Organization [place] [address] Care Team Providers Care Silverware Buffer Name Role Phone Abram Quiroz MD Primary Care Provider Reason for Visit * Reason Comments Medication Refill Encounter Details Date Type Department Care Team Description 12/23/2018 Refill Internal Medicine [address] [address] OhsKhadijah RN [address] [place] [address] [phone] Chronic respiratory failure with hypoxia, on home [...] (HCC),Stage 3 severe COPD by GOLD classification ([facility]) Inhale 2.5 mL via nebulizer 3 times a day. 270 mL 5 8 Active famotidine (PEPCID AC) 10 MG TabletIndications:G astroesophageal reflux disease with esophagitis Take 1 Tab by mouth 2 times a day. For heartburn 60 Tab 5 8 Active PredniSONE (DELTASONE) 10 MG TabletIndications:S evere chronic obstructive pulmonary disease ([facility]) One daily with food 90 Tab [...] home O2 therapy ([facility]) Take 1 Tab by mouth daily. 90 Tab 1 9 Active MEDICAL INSTRUCTIONSIndicat ions:Severe chronic obstructive pulmonary disease (HCC),COPD exacerbation ([facility]) Nebulizer and tubing 1 Each 1 7 12/24/19 19 Discontinued folic acid 1 MG TabletIndications:C hronic respiratory failure with hypoxia, on home O2 therapy ([facility]) Take 1 Tab by mouth daily. 90 Tab 1 9 12/24/19 19 Discontinued documented as of this [...] encounter Miscellaneous Notes * Telephone Encounter - Shantelle Jacobo RN - 12/23/2018 3:00 PM EDT Signed Prescriptions: Disp Refills folic acid 1 MG Tablet 90 Tab 1 Sig: Take 1 Tab by mouth daily.Authorizing Provider: ABRAM QUIROZ * Telephone Encounter - Abram Quiroz MD - 12/23/2018 12:00 PM EDT Sent to [facility] * Telephone Encounter - Khadijah Rehman RN - 12/23/2018 11:27 AM EDT Daniel needs a refill. Thanks, Khadijah Rehman RN documented in this encounter Plan of Treatment Upcoming Encounters Date Type Specialty Care Team Description 01/03/2019 Pharmacy Emergency Room Technician, Pharmacy Reimbursement [address] [place] [address] [phone] 01/23/2019 Pharmacy Emergency Room Technician, Pharmacy Reimbursement [address] [place] [address] [phone] 03/29/2019 Office Visit Internal Medicine Abram Quiroz MD [address] [place] [address] [place] [address] [phone] Health Maintenance Due Date Last Done Comments LUNG CANCER SCREENING YEARLY-USE SMARTSET 56066 06/23/2018 06/23/2017 Influenza Vaccine (FLU shot) (#1) [...] on File Type Date Recorded Patient Supervisor Screen Printing 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
--- OUTSIDE RECORDS SUMMARY | 2023-04-08 23:23 | External Medical Summary | Summary of Care ---
Author Name Unknown Organization [place] [address] Care Team Providers Care Elect Equip Maint Eng Name Role Phone Abram Owens MD Primary Care Provider [phone] Encounter Details Date Type Department Care Team Description 10/05/2018 Scan Encounter Unspecified Department <No scans attached> Allergies No Known Allergiesdocumented as of this encounter (statuses as of 11/17/2018) Medications Medication Sig Dispensed Refills Start Date [...] as of this encounter (statuses as of 11/17/2018) Active Problems Problem Noted Date Chronic respiratory failure with hypoxia , on home O2 therapy 12/03/2017 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 documented as of this encounter (statuses as of 11/17/2018) Resolved Problems Problem Noted Date Resolved Date [...] as of this encounter (statuses as of 11/17/2018) Immunizations Name Administration Dates Next Due PPD [...] Type Specialty Care Team Description 01/03/2019 Pharmacy Help Desk Agent, Pharmacy Reimbursement [address] [facility] [place] [address] [phone] 01/23/2019 Pharmacy Help Desk Agent, Pharmacy Reimbursement [address] [facility] [place] [address] [phone] 03/29/2019 Office Visit Internal Medicine Abram Owens MD [address] [place] [address] [place] [address] Health Maintenance Due Date Last Done Comments LUNG CANCER SCREENING YEARLY-USE SMARTSET 27554 06/23/2018 06/23/2017 DIABETES SCREEN EVERY 3 YRS-AGE [...] on File Type Date Recorded Patient Supervisor Special Education 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
--- OUTSIDE RECORDS SUMMARY | 2023-04-08 23:23 | External Medical Summary | Summary of Care ---
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 90 Tab 1 9 Active levalbuterol (XOPENEX) 1.25 MG/3ML nebulizer solutionIndications :Stage 3 severe COPD by GOLD classification ([facility]) Inhale 1 mL via nebulizer 3 times a day. 270 mL 5 9 Active ipratropium (ATROVENT) 0.02 % nebulizer solutionIndications :Stage 3 severe COPD by GOLD classification ([facility]) Inhale 2.5 mL via nebulizer 3 times a day. 270 mL 5 9 Active ipratropium (ATROVENT) 0.02 % nebulizer solutionIndications :Severe chronic obstructive pulmonary disease (HCC),Stage 3 severe COPD by GOLD classification ([facility]) Inhale 2.5 mL via nebulizer [...] Will need scripts faxed to [facility] at [phone]. Thanks, Khadijah Rehman, RN documented in this encounter Plan of Treatment Upcoming Encounters Date Type Specialty Care Team Description 01/23/2019 Pharmacy Canceling Machine Operator, Pharmacy Reimbursement [address] [place] [address] [phone] 03/16/2019 Pharmacy Canceling Machine Operator, Pharmacy Reimbursement [address] [place] [address] [phone] 03/29/2019 Office Visit Internal Medicine Abram Quiroz MD [address] [place] [address] [place] [address] Health Maintenance Due Date Last Done Comments LUNG CANCER SCREENING YEARLY-USE SMARTSET [id number] 06/23/2018 06/23/2017 Influenza Vaccine (FLU shot) (#1) [...] Documents on File Type Date Recorded Patient Bathhouse Keeper 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
--- OUTSIDE RECORDS SUMMARY | 2023-04-08 23:23 | External Medical Summary | Summary of Care ---
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 [...] MG TabletIndications:S evere chronic obstructive pulmonary disease ([facility]) One daily with food 90 Tab 1 [...] Telephone Encounter - Shantelle Jacobo RN - 01/10/2019 4:32 PM EDT Signed Prescriptions: Disp Refills levalbuterol (XOPENEX) 1.25 MG/3ML nebuliz*270 mL 5 Sig: Inhale 1 mL via nebulizer 3 times a day.Authorizing Provider: ABRAM QUIROZ ipratropium (ATROVENT) 0.02% nebulizer so*270 mL 5 Sig: Inhale 2.5 mL via nebulizer 3 times a day.Authorizing Provider: ABRAM QUIROZ * Telephone Encounter - Shantelle Jacobo RN - 01/10/2019 4:32 PM EDT Orders faxed. * Telephone Encounter - Ophelia Gerard LPN - 01/10/2019 4:16 PM EDT Signed Prescriptions: Disp Refills levalbuterol (XOPENEX) 1.25 MG/3ML nebuliz*270 mL 5 Sig: Inhale 1 mL via nebulizer 3 times a day.Authorizing Provider: PILGRAM, ABRAM A ipratropium (ATROVENT) 0.02% nebulizer so*270 mL 5 Sig: Inhale 2.5 mL via nebulizer 3 times a day.Authorizing Provider: ABRAM QUIROZ * Telephone Encounter - Khadijah Rehman RN - 01/10/2019 4:03 PM EDT Daniel needs his nebulizer medicines reordered. Will need scripts faxed to [facility] at [phone]. Thanks, Khadijah Rehman RN documented in this encounter Plan of Treatment Upcoming Encounters Date Type Specialty Care Team Description 01/23/2019 Pharmacy Burner Technician, Pharmacy Reimbursement [address] [place] [address] [phone] 03/16/2019 Pharmacy Burner Technician, Pharmacy Reimbursement [address] [place] [address] [phone] 03/29/2019 Office Visit Internal Medicine Abram Quiroz MD [address] [place] [address] [place] [address] Health Maintenance Due Date Last Done Comments LUNG CANCER SCREENING YEARLY-USE SMARTSET [address] 06/23/2018 06/23/2017 Influenza Vaccine (FLU shot) (#1) [...] Documents on File Type Date Recorded Patient Well Point Pumping Supervisor 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
--- OUTSIDE RECORDS SUMMARY | 2023-04-08 23:23 | External Medical Summary | Summary of Care ---
Author Name Unknown Organization [place] [address] Care Team Providers Care Molder Fitting Name Role Phone Abram Owens MD Primary Care Provider [phone] Reason for Visit * Reason Comments Med Request Encounter Details Date Type Department Care Team Description 08/02/2018 Telephone Internal Medicine [address] [address] Abram Owens MD [address] [place] [address] [phone] Med Request Allergies No Known Allergiesdocumented as of this encounter (statuses as of 11/16/2018) Medications Medication Sig Dispensed Refills Start Date End Date Status MEDICAL INSTRUCTIONSIndicat ions:Severe chronic obstructive pulmonary disease (HCC),COPD exacerbation (HCC) Nebulizer and tubing 1 Each 1 7 Active THIAMINE (VITAMIN B-1) 100 MG Tablet [...] nebulizer solutionIndications :Severe chronic obstructive pulmonary disease ([facility]),Stage 3 severe COPD by GOLD classification ([facility]) Inhale 2.5 mL via nebulizer 3 times a day. 270 mL 5 8 Active famotidine (PEPCID AC) 10 MG TabletIndications:G astroesophageal reflux disease with esophagitis Take 1 Tab by mouth 2 times a day. For heartburn 60 Tab 5 8 Active folic acid 1 MG TabletIndications:C hronic respiratory failure with hypoxia, on home O2 therapy ([facility]) Take 1 Tab by mouth daily. 90 Tab 1 9 Active PredniSONE (DELTASONE) 10 MG TabletIndications:S evere chronic obstructive pulmonary disease ([facility]) One daily with food 90 Tab 1 9 Active fluticasone-salmete rol (ADVAIR DISKUS) 250-50 MCG/DOSE inhalerIndications: SOB (shortness of breath) Inhale 1 Puff by mouth 2 times a day. 3 Disk Dosing Unit 3 8 08/19/19 19 Discontinued ondansetron (ZOFRAN) 4 MG Tablet Take 1 Tab by mouth every 6 hours as needed for Nausea. 30 Tab 0 8 08/13/19 19 Discontinued predniSONE (DELTASONE) 20 MG TabletIndications:A cute exacerbation of chronic obstructive pulmonary disease (COPD) ([facility]) 2 daily for 5 days 10 Tab 0 9 08/08/19 19 azithromycin (ZITHROMAX Z-ADA) 250 MG TabletIndications:A cute exacerbation of chronic obstructive pulmonary disease (COPD) (HCC) Take two tablets by mouth on first day, then 1 tablet daily until gone 6 Tab 0 9 08/08/19 19 documented as of this encounter (statuses as of 11/16/2018) Active Problems Problem Noted Date Chronic respiratory failure with hypoxia , on home O2 therapy 12/03/2017 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 documented as of this encounter (statuses as of 11/16/2018) Resolved Problems Problem Noted Date Resolved Date [...] as of this encounter (statuses as of 11/16/2018) Immunizations Name Administration Dates Next Due PPD [...] Years Used Date Former Smoker Cigarettes 2 50 Quit: 04/07 Smokeless Tobacco: Never Used Comments:started age 16 [...] Telephone Encounter - Shantelle Jacobo RN - 08/02/2018 3:30 PM EST Patient aware and receptive to instructions. * Telephone Encounter - Abram Owens MD - 08/02/2018 2:36 PM EST [facility] * Telephone Encounter - Kristi Luis LPN - 08/02/2018 2:33 PM EST Pt calling and is complaining of productive cough with yellow mucus and hurts to take a deep breath. This started on last . Offered appt and declined due to weather. Asking if an abx can be prescribed. * Telephone Encounter - Danae Montalvo PHARM Tech - 08/02/2018 2:29 PM EST Pt calling in requesting antibiotic for bronchitis.pt stated he has pain in his back. Warm transferred pt to nurse. Thank you, Danae Montalvo Equipment Service Associate Refill Call Center 08/02/2018, 2:31 PM documented in this encounter Plan of Treatment Upcoming Encounters Date Type Specialty Care Team Description 01/03/2019 Pharmacy Morphologist, Pharmacy Reimbursement [address] [place] [address] 01/23/2019 Pharmacy Morphologist, Pharmacy Reimbursement [address] [place] [address] [phone] 03/29/2019 Office Visit Internal Medicine Abram Owens MD [address] [place] [address] [place] [address] Health Maintenance Due Date Last Done Comments LUNG CANCER SCREENING YEARLY-USE SMARTSET 33740 06/23/2018 06/23/2017 DIABETES SCREEN EVERY 3 YRS-AGE [...] as of this encounter Visit Diagnoses Diagnosis Acute exacerbation of chronic obstructive pulmonary disease (COPD) (HCC)- Primary Obstructive chronic bronchitis with exacerbation documented in this encounter Advance Directives Documents on File Type Date Recorded Patient Runner Worker 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
--- OUTSIDE RECORDS SUMMARY | 2023-04-08 23:24 | External Medical Summary | Summary of Care ---
Author Name Unknown Organization [place] [address] Care Team Providers Care Cuff Slitter Name Role Phone Abram Owens MD Primary Care Provider Reason for Visit * Reason Comments Medication Refill Encounter Details Date Type Department Care Team Description 09/20/2018 Telephone Internal Medicine [address] [address] OhsKhadijah RN [address] [place] [address] [phone] Medication Refill Allergies No Known Allergiesdocumented as of this encounter (statuses as of 09/21/2018) Medications Medication Sig Dispensed Refills Start Date [...] 3 Disk Dosing Unit 3 08/18/2018 Active documented as of this encounter (statuses as of 09/21/2018) Active Problems Problem Noted Date Chronic respiratory failure with hypoxia , on home O2 therapy 12/03/2017 Stage 3 severe COPD by GOLD classificati on 11/24/2017 Oxygen dependent 11/24/2017 History of tobacco use 10/20/2017 Severe chronic obstructive pulmonary dis ease 10/28/2016 Overview: severe by ATS criteria. significant response after bronchodilator ADVANCE DIRECTIVE INFORMATION 02/01/2008 Overview: No, Advance Directive brochure given to patient. Edentulous documented as of this encounter (statuses as of 09/21/2018) Resolved Problems Problem Noted Date Resolved Date Pneumonia 06/13/2017 10/27/2017 Overview: left basal infiltrate COPD exacerbation 10/16/2016 05/03/2017 Inflammation of sacroiliac [...] as of this encounter (statuses as of 09/21/2018) Immunizations Name Dates Previously Given Next Due PPD 04/22/2005 Pneumococcal Conjugate Vacc, [...] Telephone Encounter - Shantelle Jacobo RN - 09/21/2018 11:43 AM EDT Chelebaron Gallardo is going to send the application for daliresp to him for patient assistance program. * Telephone Encounter - Shantelle Jacobo RN - 09/20/2018 4:54 PM EDT Pt needs refills . Doesn't know if he gets this from pt assistance . He gave me a number on his bottle to contact [phone]. He also has a rn case manager at [facility] that assists him with meds. Chele Gallardo. I will contact him also. * Telephone Encounter - Ligia Connors LPN - 09/20/2018 4:34 PM EDT . * Telephone Encounter - Khadijah Rehman RN - 09/20/2018 1:53 PM EDT Daniel needs his Daliresp reordered. He has been getting help through drug [employer] r/t cost. Thanks, Khadijah Rehman RN documented in this encounter Plan of Treatment Upcoming Encounters Date Type Specialty Care Team Description 09/23/2018 Office Visit Internal Medicine Abram Owens MD [address] [place] [address] ABRAHAM Burnham [id number] 09/30/2018 Pharmacy Furnace Operator [employer], Pharmacy Reimbursement [address] [place] [address] [phone] 11/07/2018 Pharmacy Furnace Operator [employer], Pharmacy Reimbursement [address] [place] [address] [phone] Health Maintenance Due Date Last Done Comments LUNG CANCER SCREENING YEARLY-USE SMARTSET [id number] 06/23/2018 06/23/2017 DIABETES SCREEN EVERY 3 YRS-AGE [...] filedocumented as of this encounter Advance Directives Patient has advance care planning documents on file. For more information, please contact: ABRAHAM Borges [phone]
--- OUTSIDE RECORDS SUMMARY | 2023-04-08 23:24 | External Medical Summary | Summary of Care ---
Author Name Unknown Organization [place] [address] Care Team Providers Care Oil Distributor Name Role Phone Abram Owens MD Primary Care Provider Reason for Visit * Reason Comments Patient Assistance Program Encounter Details Date Type Department Care Team Description 10/03/2018 Pharmacy Pharmacy, [place] [address] [place], [place] [id number] Coordinator, Pharmacy [facility] [address] [place], [place] [id number] COPD, severe (HCC)* Allergies No Known Allergiesdocumented as of this encounter (statuses as of 10/03/2018) Medications Medication Sig Dispensed Refills Start Date [...] as of this encounter (statuses as of 10/03/2018) Active Problems Problem Noted Date Chronic respiratory failure with hypoxia , on home O2 therapy 12/03/2017 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 documented as of this encounter (statuses as of 10/03/2018) Resolved Problems Problem Noted Date Resolved Date [...] as of this encounter (statuses as of 10/03/2018) Immunizations Name Dates Previously Given Next Due [...] Progress Notes * Chele Gallardo OSA - 10/03/2018 3:32 PM EDT Completed Az and Me application for [employer] and proof of income were received on 10/03/2018. The documents were forwarded to Abram Owens MD to sign and submit to the company. If the patient is approved by the program, a 90 day supply of this medication should arrive at [address] [place] [address] in approximately 30 days. Follow up Az and Me 2 weeks 10/18/2018 AJH Manriquez Pharmaceutical Coverage Specialist 10/03/2018, 3:33 PM documented in this encounter Plan of Treatment Upcoming Encounters Date Type Specialty Care Team Description 10/18/2018 Pharmacy Auriculotherapist, Pharmacy Reimbursement [address] [place] [address] 11/07/2018 Pharmacy Auriculotherapist, Pharmacy Reimbursement [address] [place] [address] 03/29/2019 Office Visit Internal Medicine Abram Owens MD [address] [place] [address] [place] Burnham [address] Health Maintenance Due Date Last Done Comments LUNG CANCER SCREENING YEARLY-USE SMARTSET [id number] 06/23/2018 06/23/2017 DIABETES SCREEN EVERY 3 YRS-AGE [...] classified documented in this encounter Advance Directives Patient has advance care planning documents on file. For more information, please contact: ABRAHAM Borges [phone]
--- OUTSIDE RECORDS SUMMARY | 2023-04-08 23:24 | External Medical Summary | Summary of Care ---
Author Name Unknown Organization [place] [address] Care Team Providers Care Laundry Housekeeping Aide Name Role Phone Abram Owens MD Primary Care Provider [phone] Reason for Referral * Precert (Routine) Status Reason Specialty Diagnoses / Procedures Referred By Contact Referred To Contact Pending Review Precert Radiology Diagnoses Cigarette nicotine dependence in remission Stage 3 severe COPD by GOLD classification ([facility]) Encounter for screening for lung cancer Procedures CT CHEST LOW DOSE SCAN LUNG CANCER SCREEN Abram Owens MD [address] [place] [address] [place] Burnham [address] Reason for Visit * Reason Comments Status Check Encounter Details Date Type Department Care Team Description 09/23/2018 Office Visit Internal Medicine [address] [address] Abram Owens MD [address] [place] [address] [place] Burnham [address] [phone] Stage 3 severe COPD by GOLD classification ([facility])*; Chronic respiratory failure with hypoxia, on home O2 therapy ([facility]); History of tobacco use; Edentulous; Oxygen dependent; Gastroesophageal reflux disease with esophagitis; Encounter for screening for lung cancer; Cigarette nicotine dependence in remission Allergies No Known Allergiesdocumented as of this encounter (statuses as of 09/23/2018) Medications Medication Sig Dispensed Refills Start Date [...] as of this encounter (statuses as of 09/23/2018) Active Problems Problem Noted Date Chronic respiratory failure with hypoxia , on home O2 therapy 12/03/2017 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 documented as of this encounter (statuses as of 09/23/2018) Resolved Problems Problem Noted Date Resolved Date [...] as of this encounter (statuses as of 09/23/2018) Immunizations Name Dates Previously Given Next Due [...] Vital Signs Vital Sign Reading Time Taken Blood Pressure 148/70 09/23/2018 2:38 PM EDT Pulse 104 09/23/2018 2:38 PM EDT Temperature 36.9 C (98.4 F) 09/23/2018 2 :38 PM EDT Respiratory Rate 36 09/23/2018 2:38 PM EDT Oxygen Saturation 93% 09/23/2018 2:3 8 PM EDT Inhaled Oxygen Concentration - - Weight 58.1 kg (128 lb) 09/23/2018 2:38 PM EDT Height 170.2 cm (5' 7") 09/23/2018 2:38 PM EDT Body Mass Index 20.05 09/23/2018 2:38 PM EDT documented in this encounter Progress Notes * Abram Owens MD - 09/23/2018 2:42 PM EDT Jer continues on O2. He sees someone in pulmonary. He agrees to low dose CT of chest. He feels he is the same. Past Medical History: Diagnosis Date Acute exacerbation of COPD with asthma ([facility]) 04/23/2017 [facility] Edentulous Gastroesophageal reflux disease with esophagitis Inflammation of sacroiliac joint ([facility]) 04/24/05 Loss of teeth due to trauma, extraction, or periodontal disease Other abnormal glucose 04/23/05 glucose 156 Other abnormal glucose 02/22/08 glucose 167 Other disorders of vitreous 12/05 Posterior vitreous detachment OS Other specified disorders of rotator cuff syndrome of shoulder and allied disorders 05/10 right shoulder Pneumonia 06/13/2017 left basal infiltrate Pneumonia due to Pseudomonas ([facility]) 05/20/2017 Severe chronic obstructive pulmonary disease (HCC) 10/28/2016 severe by ATS criteria. significant response after bronchodilator TICK BITE RIGHT FOOT 02/09 Tobacco use disorder Past Surgical History: Procedure [...] file Highest education level: Not on file Social Needs Financial resource strain: Not on file Food insecurity - worry: Not on file Food insecurity - inability: Not on file Transportation needs - medical: Not on file Transportation needs - non-medical: Not on file Occupational History Not on file Tobacco Use Smoking status: Former Smoker Packs/day: 2.00 Years: 59.00 Pack years: 118.00 Types: Cigarettes Start date: 1954 Last attempt to quit: 04/07/2016 Years since quittin.4 Smokeless tobacco: Never Used Tobacco comment: started age 16 Substance and Sexual Activity Alcohol use: Yes Comment: 3-4 beers per day. Was drinking 8 per day. Drug use: No Sexual activity: Yes Partners: Female Other Topics Concern Not on file Social History Narrative Not on file Current Outpatient Medications Medication Sig Dispense Refill fluticasone-salmeterol (ADVAIR DISKUS) 250-50 MCG/DOSE inhaler Inhale [...] a day. For heartburn 60 Tab 5 ipratropium (ATROVENT) 0.02 % nebulizer solution Inhale 2.5 mL via nebulizer 3 times a day. 270mL 5 roflumilast (DALIRESP) 500 MCG Tablet Take 500 mcg by mouth daily. levalbuterol (XOPENEX) 1.25 MG/3ML nebulizer solution Use Three times daily 270 mL 5 acetaminophen (TYLENOL) 500 MG Tablet Take 500 mg by mouth every 4 hours as needed for Pain. Benzocaine 20 % gel Apply to the mouth or throat as needed. docusate sodium (COLACE) 100 MG Capsule Take 100 mg by mouth 2 times a day as needed for Constipation. hydrocortisone acetate (ANUSOL-HC) 25 MG suppository Administer [...] Tablet Take 100 mg by mouth daily. MEDICAL INSTRUCTIONS Nebulizer and tubing 1 Each 1 O: Blood pressure 148/70, pulse 104, temperature 36.9 C (98.4 F), resp. rate 36, height 1.702 m(5' 7"), weight 58.1 kg (128 lb), SpO2 93 %. General appearance: well developed, well nourished and in no acute distress. Neck is supple withoutadenopathy or thyromegaly. Chest is symmetrical and moves normally. The lungs are clear without wheezes, rales, rhonchi or rubs, and the heart is regular without murmurs or gallops, or ectopy. PMI not displaced. A: J44.9 Stage 3 severe copd by gold classification ([facility]) (primary encounter diagnosis) Plan: Ct chest low dose scan lung cancer screen J96.11, Z99.81 Chronic respiratory failure with hypoxia, on home o2 therapy ([facility]) Z87.891 History of tobacco use K00.0 Edentulous Z99.81 Oxygen dependent K21.0 Gastroesophageal reflux disease with esophagitis Z12.2 Encounter for screening for lung cancer Plan: Ct chest low dose scan lung cancer screen F17.211 Cigarette nicotine dependence in remission Plan: Ct chest low dose scan lung cancer screen Follow up: Return in about 6 months (around 03/25/2019). documented in this encounter Nursing Notes * Shantelle Jacobo, RN - 09/23/2018 2:41 PM EDT 6 month check. Still coughing yellow mucous but not as often. Gets very short of breath with slight exertion. documented in this encounter Plan of Treatment Upcoming Encounters Date Type Specialty Care Team Description 09/30/2018 Pharmacy Computer Technologist, Pharmacy Reimbursement [address] [place] [address] [phone] 11/07/2018 Pharmacy Computer Technologist, Pharmacy Reimbursement [address] [place] [address] [phone] 03/29/2019 Office Visit Internal Medicine Abram Owens MD [address] [place] [address] ABRAHAM Burnham [id number] Scheduled Tests Name Priority Associated Diagnoses Order S chedule CT CHEST LOW DOSE SCAN LUNG CANCER SCREEN Routine Cigarette nicotine dependence in remission Stage 3 severe COPD by GOLD classification ([facility]) Encounter for screening for lung cancer Ordered: 09/23/2018 Health Maintenance Due Date Last Done Comments LUNG CANCER SCREENING YEARLY-USE SMARTSET 13238 06/23/2018 06/23/2017 DIABETES SCREEN EVERY 3 YRS-AGE [...] GOLD classification ([facility])- Primary Chronic respiratory failure with hypoxia, on home O2 therapy (HCC) History of tobacco use Personal history of tobacco use, presenting hazards to health Edentulous Anodontia Oxygen dependent Dependence on supplemental oxygen Gastroesophageal reflux disease with esophagitis Encounter for screening for lung cancer Cigarette nicotine dependence in remission Personal history of tobacco use, presenting hazards to health documented in this encounter Advance Directives Patient has advance care planning documents on file. For more information, please contact: ABRAHAM Borges [phone]
--- OUTSIDE RECORDS SUMMARY | 2023-04-08 23:24 | External Medical Summary | Summary of Care ---
Author Name Unknown Organization [place] [address] Care Team Providers Care Manager [place] Name Role Phone Abram Owens MD Primary Care Provider Reason for Visit * Reason Comments Patient Assistance Program Encounter Details Date Type Department Care Team Description 09/30/2018 Pharmacy Pharmacy, [place] [address] [place], [place] [phone] Coordinator, Pharmacy [facility] [address], [place] [phone] COPD, severe (HCC)* Allergies No Known Allergiesdocumented as of this encounter (statuses as of 09/30/2018) Medications Medication Sig Dispensed Refills Start Date [...] as of this encounter (statuses as of 09/30/2018) Active Problems Problem Noted Date Chronic respiratory failure with hypoxia , on home O2 therapy 12/03/2017 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 documented as of this encounter (statuses as of 09/30/2018) Resolved Problems Problem Noted Date Resolved Date [...] as of this encounter (statuses as of 09/30/2018) Immunizations Name Dates Previously Given Next Due [...] Progress Notes * Chele Gallardo OSA - 09/21/2018 12:00 PM EDT Follow up needs made to patient [phone] (home) , Patient Phone Numbers Coverage:Medicare A and B (No D) RX:Daliresp Provider:Abram Owens MD Please call patient to verify status of Az and Me PAP application. Forms sent: 09/21/2018 JAH Manriquez Pharmaceutical Booster Operator 09/21/2018, 12:00 PM PRC LMOM with son's voicemail to follow up Az and Me application. JAH Manriquez Pharmaceutical Booster Operator 09/30/2018, 2:47 PM documented in this encounter Plan of Treatment Upcoming Encounters Date Type Specialty Care Team Description 11/07/2018 Pharmacy Aeronautical Test Engineer, Pharmacy Reimbursement [address] [place] [id number] 03/29/2019 Office Visit Internal Medicine Abram Owens MD [address] [place] [address] ABRAHAM Burnham [address] Health Maintenance Due Date Last Done Comments LUNG CANCER SCREENING YEARLY-USE SMARTSET [id number] 06/23/2018 06/23/2017 DIABETES SCREEN EVERY 3 YRS-AGE [...] For more information, please contact: ABRAHAM Borges [phone]
--- OUTSIDE RECORDS SUMMARY | 2023-04-08 23:24 | External Medical Summary | Summary of Care ---
Author Name Unknown Organization [place] [address] Care Team Providers Care Sustainability Communicator Name Role Phone Abram Owens MD Primary Care Provider [phone] Reason for Visit * Reason Comments Patient Assistance Program Encounter Details Date Type Department Care Team Description 10/18/2018 Pharmacy Pharmacy, [place] [address] [place], [place] [phone] Coordinator, Pharmacy [facility] [address] [place], [place] [id number] COPD, severe (HCC)* Allergies No Known Allergiesdocumented as of this encounter (statuses as of 10/18/2018) Medications Medication Sig Dispensed Refills Start Date [...] (HCC),Stage 3 severe COPD by GOLD classification ([facility] [...] failure with hypoxia, on home O2 therapy ([facility]) Take 1 Tab by mouth [...] as of this encounter (statuses as of 10/18/2018) Active Problems Problem Noted Date Chronic respiratory failure with hypoxia , on home O2 therapy 12/03/2017 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 documented as of this encounter (statuses as of 10/18/2018) Resolved Problems Problem Noted Date Resolved Date [...] as of this encounter (statuses as of 10/18/2018) Immunizations Name Dates Previously Given Next Due [...] Notes * Chele Gallardo OSA - 10/03/2018 3:34 PM EDT Follow up needs made to company Coverage:Medicare A and B (No D) [facility] [id number] Patient Phone Numbers RX:Daliresp Dose: 500 MCG Quanity 90 Provider:Abram Owens MD ID# [id number] Please call [employer] to verify status of application. Phone number: [phone] Forms sent to provider:10/04/2018 JAH Manriquez Pharmaceutical Braiding Machine Operator 10/03/2018, 3:36 PM Application not processed, PRC follow up [employer] Me 11/02/2018. JAH Manriquez Pharmaceutical Braiding Machine Operator 10/18/2018, 9:52 AM PRC spoke to [employer] rep, patient re-enrollment has been approved. [employer] having issue with patient address, not found in their system. Rep will work on issue and set up order for patient. Will call PRC back if additional information is needed. JAH Manriquez Pharmaceutical Braiding Machine Operator 10/18/2018, 1:16 PM documented in this encounter Plan of Treatment Upcoming Encounters Date Type Specialty Care Team Description 11/02/2018 Pharmacy Computer Numerical Control Operator, Pharmacy Reimbursement [address] [place] [address] 11/07/2018 Pharmacy Computer Numerical Control Operator, Pharmacy Reimbursement [address] [facility] [place] [address] 03/29/2019 Office Visit Internal Medicine Abram Owens MD [address] [place] [address] [place]RA[place] Burnham [address] [phone] Health Maintenance Due Date Last Done Comments LUNG CANCER SCREENING YEARLY-USE SMARTSET [id number] 06/23/2018 06/23/2017 DIABETES SCREEN EVERY 3 YRS-AGE [...] For more information, please contact: ABRAHAM Borges [address]
--- OUTSIDE RECORDS SUMMARY | 2023-04-08 23:24 | External Medical Summary | Summary of Care ---
Author Name Unknown Organization [place] [address] Care Team Providers Care Quality Assurance Supervisor Chassis Name Role Phone Abram Owens MD Primary Care Provider [phone] Reason for Visit * Reason Comments Advice Encounter Details Date Type Department Care Team Description 10/07/2018 Telephone Internal Medicine [address] [address] OhsKhadijah RN [address] [place] [address] [place] [address] [phone] Advice Allergies No Known Allergiesdocumented as of this encounter (statuses as of 10/10/2018) Medications Medication Sig Dispensed Refills Start Date [...] as of this encounter (statuses as of 10/10/2018) Active Problems Problem Noted Date Chronic respiratory failure with hypoxia , on home O2 therapy 12/03/2017 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 documented as of this encounter (statuses as of 10/10/2018) Resolved Problems Problem Noted Date Resolved Date [...] as of this encounter (statuses as of 10/10/2018) Immunizations Name Dates Previously Given Next Due [...] Telephone Encounter - Shantelle Jacobo RN - 10/10/2018 9:22 AM EDT Form signed and faxed. * Telephone Encounter - Ligia Connors LPN - 10/07/2018 4:[address]T Form on Dr Owens's desk to sign * Telephone Encounter - Khadijah Rehman RN - 10/07/2018 2:24 PM EDT Daniel is asking about getting his Daliresp? Looks like form was "forwarded to Dr Owens" to sign and submit to the company on 10/03/18. Were these submitted? Thank you, Khadijah Rehman RN documented in this encounter Plan of Treatment Upcoming Encounters Date Type Specialty Care Team Description 10/18/2018 Pharmacy Cardiac Care Nurse, Pharmacy Reimbursement [address] [place] [address] 11/07/2018 Pharmacy Cardiac Care Nurse, Pharmacy Reimbursement [address] [place] [address] 03/29/2019 Office Visit Internal Medicine Abram Owens MD [address] [place] [address] ABRAHAM Burnham [address] Health Maintenance Due Date Last Done Comments LUNG CANCER SCREENING YEARLY-USE SMARTSET [id number] 06/23/2018 06/23/2017 DIABETES SCREEN EVERY 3 YRS-AGE [...] For more information, please contact: ABRAHAM Borges [address]
--- OUTSIDE RECORDS SUMMARY | 2023-04-08 23:24 | External Medical Summary | Summary of Care ---
Author Name Unknown Organization [place] [address] Care Team Providers Care Disc Inspector Name Role Phone Abram Owens MD Primary Care Provider Reason for Visit * Reason Comments FYI Encounter Details Date Type Department Care Team Description 09/21/2018 Telephone Internal Medicine [address] [address] OhsKhadijah RN [address] [place] [address] [place] [address] [phone] FYI Allergies No Known Allergiesdocumented as of [...] on home O2 therapy ([facility]) Take 1 Tab by mouth [...] Notes * Telephone Encounter - OhKhadijah pruett M, RN - 09/21/2018 2:45 PM EDT Daniel called to report that he is still coughing up greenish yellow thick mucus. Still SOB but this is his baseline. Denies any chills or fever. Feels weak but this is baseline as well. He did finish the course of Prednisone that he had started on 09-05 and it was finished 09/10/18. He was to see you this Wednesday for his 6 month recheck but got a big bill from his OV 08/12/18? I advised he call and see what this charge is as his OV bill is never that much? He mentioned not coming Wednesday as he saw Dr on 08/12/18? I suggested he call his insurance company and ask what the bill is for? He will do that and let us know. I did not cancel Wednesday. Explained that he hasn't felt well and still coughing up green/yellow mucus so he needs to keep appointment. I think he may be concerned about getting another bill? He will let me know. FYI. documented in this encounter Plan of Treatment Upcoming Encounters Date Type Specialty Care Team Description 09/23/2018 Office Visit Internal Medicine Abram Owens MD [address] [place] [address] AB[place]AM Burnham [address] [phone] 09/30/2018 Pharmacy Adventure Education Teacher, Pharmacy Reimbursement [address] [place] [address] 11/07/2018 Pharmacy Adventure Education Teacher, Pharmacy Reimbursement [address] [place] [address] Health Maintenance Due Date Last Done Comments LUNG CANCER SCREENING YEARLY-USE SMARTSET 12527 06/23/2018 06/23/2017 DIABETES SCREEN EVERY 3 YRS-AGE [...] For more information, please contact: ABRAHAM Borges [phone]
--- OUTSIDE RECORDS SUMMARY | 2023-04-08 23:24 | External Medical Summary | Summary of Care ---
Author Name Unknown Organization [place] [address] Care Team Providers Care Steel Tier Name Role Phone Abram Owens MD Primary Care Provider Reason for Visit * Reason Comments Advice Encounter Details Date Type Department Care Team Description 10/07/2018 Telephone Internal Medicine [address] [address] OhsKhadijah RN [address] [place] [address] [place] [address] [phone] Advice Allergies No Known Allergiesdocumented as of [...] (HCC),Stage 3 severe COPD by GOLD classification ([facility] [...] on home O2 therapy ([facility]) Take 1 Tab by mouth daily. [...] krystle kevin. documented as of this encounter Miscellaneous Notes [...] Type Specialty Care Team Description 10/18/2018 Pharmacy Materials And Corrosion Engineer, Pharmacy Reimbursement [address] [place] [address] 11/07/2018 Pharmacy Materials And Corrosion Engineer, Pharmacy Reimbursement [address] [place] [address] 03/29/2019 Office Visit Internal Medicine Abram Owens MD [address] [place] [address] ABRA[place] Burnham [address] Health Maintenance Due Date Last Done Comments LUNG CANCER SCREENING YEARLY-USE SMARTSET 05769 06/23/2018 06/23/2017 DIABETES SCREEN EVERY 3 YRS-AGE [...] For more information, please contact: ABRAHAM Borges [phone]
--- OUTSIDE RECORDS SUMMARY | 2023-04-08 23:24 | External Medical Summary | Summary of Care ---
Author Name Unknown Organization [place] [address] Care Team Providers Care Chimney Repairer Name Role Phone Abram Owens MD Primary Care Provider Reason for Visit * Reason Comments Patient Assistance Program Encounter Details Date Type Department Care Team Description 10/18/2018 Pharmacy Pharmacy, [place] [address] [place], [place] [id number] Coordinator, Pharmacy [facility] [address], [place] [phone] COPD, severe (HCC)* Allergies No Known Allergiesdocumented [...] Coverage:Medicare A and B (No D) [address] [facility] [address] Patient Phone Numbers RX:Daliresp Dose: 500 MCG Quanity 90 Provider:Abram Owens MD ID# [id number] Please call [employer] to verify status of application. Phone number: [phone] Forms sent to provider:10/04/2018 JAH [employer] Box Toe Cutter 10/03/2018, 3:36 PM Application not processed, [facility] follow up [employer] 11/02/2018. JAH [employer] Box Toe Cutter 10/18/2018, 9:52 AM documented in this encounter Plan of Treatment Upcoming Encounters Date Type Specialty Care Team Description 11/02/2018 Pharmacy Electric Fork Operator, Pharmacy Reimbursement [address] [place] [address] 11/07/2018 Pharmacy Electric Fork Operator, Pharmacy Reimbursement [address] [facility] [place] [address] 03/29/2019 Office Visit Internal Medicine Abram Owens MD [address] [place] [address] ABRAH[place] Burnham [address] Health Maintenance Due Date Last Done Comments LUNG CANCER SCREENING YEARLY-USE SMARTSET 14465 06/23/2018 06/23/2017 DIABETES SCREEN EVERY 3 YRS-AGE [...] For more information, please contact: ABRAHAM Borges [address]
--- OUTSIDE RECORDS SUMMARY | 2023-04-08 23:24 | External Medical Summary | Summary of Care ---
Author Name Unknown Organization [place] [address] Care Team Providers Care Lens Examiner Name Role Phone Abram Owens MD Primary Care Provider Reason for Visit * Reason Comments Med Request Encounter Details Date Type Department Care Team Description 09/29/2018 Telephone Internal Medicine [address] [address] OhsKhadijah RN [address] [place] [address] [phone] Med Request Allergies No Known Allergiesdocumented as of this encounter (statuses as of 09/29/2018) Medications Medication Sig Dispensed Refills Start Date [...] (HCC),Stage 3 severe COPD by GOLD classification ([place] [...] as of this encounter (statuses as of 09/29/2018) Active Problems Problem Noted Date Chronic respiratory failure with hypoxia , on home O2 therapy 12/03/2017 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 documented as of this encounter (statuses as of 09/29/2018) Resolved Problems Problem Noted Date Resolved Date [...] as of this encounter (statuses as of 09/29/2018) Immunizations Name Dates Previously Given Next Due [...] Telephone Encounter - Khadijah Rehman RN - 09/29/2018 2:28 PM EDT Daniel is aware. Thanks, Khadijah Rehman RN * Telephone Encounter - Abram Owens MD - 09/29/2018 2:08 PM EDT Sent to [facility] * Telephone Encounter - Khadijah Rehman RN - 09/29/2018 1:[address] Owens Daniel has a mix up with [facility] with his Levalbuterol. He will need about 20 vials until this is delivered by [facility]. Thanks, Khadijah Rehman RN documented in this encounter Plan of Treatment Upcoming Encounters Date Type Specialty Care Team Description 09/30/2018 Pharmacy Security And Privacy Consultant, Pharmacy Reimbursement [address] [place] [address] 11/07/2018 Pharmacy Security And Privacy Consultant, Pharmacy Reimbursement [address] [facility] [place] [address] 03/29/2019 Office Visit Internal Medicine Abram Owens MD [address] [place] [address] ABRAHAM Burnham [id number] Health Maintenance Due Date Last Done Comments LUNG CANCER SCREENING YEARLY-USE SMARTSET 08316 06/23/2018 06/23/2017 DIABETES SCREEN EVERY 3 YRS-AGE [...] For more information, please contact: ABRAHAM Borges [phone]
--- OUTSIDE RECORDS SUMMARY | 2023-04-08 23:24 | External Medical Summary | Summary of Care ---
Author Name Unknown Organization [place] [address] Care Team Providers Care Clinical Informatics Strategist Name Role Phone Abram Owens MD Primary Care Provider Reason for Visit * Reason Comments Patient Assistance Program Encounter Details Date Type Department Care Team Description 09/21/2018 Pharmacy Pharmacy, [place] [address] [place], [place] [id number] Coordinator, Pharmacy [facility] [address], [place] [phone] COPD, severe (HCC)* Allergies No Known Allergiesdocumented [...] Progress Notes * Chele Gallardo, JAH - 09/21/2018 11:57 AM EDT Patient needs re-enrolled per message from [employer]: [employer] RX: Daliresp Provider: Abram Owens MD The patient was mailed forms 09/21/2018 to sign and mail back to [facility] office. Once the forms are received in the [facility] office, the forms will be forwarded to the prescribing provider for a signature and submission to the appropriate pharmaceutical company. If the patient is approved for a PAP program, the free medication should arrive in approximately thirty (30) days. Forms mailed to patient 09/21/2018 Follow up patient: 09/30/2018 JAH [employer] [place] 09/21/2018, 11:58 AM documented in this encounter Plan of Treatment Upcoming Encounters Date Type Specialty Care Team Description 09/23/2018 Office Visit Internal Medicine Abram Owens MD [address] [place] [address] [place]RA[place] Burnham [address] 09/30/2018 Pharmacy Statistics Manager, Pharmacy Reimbursement [address] [place] [address] [phone] 11/07/2018 Pharmacy Statistics Manager, Pharmacy Reimbursement [address] [place] [address] [phone] Health Maintenance Due Date Last Done Comments LUNG CANCER SCREENING YEARLY-USE SMARTSET 66374 06/23/2018 06/23/2017 DIABETES SCREEN EVERY 3 YRS-AGE [...] For more information, please contact: ABRAHAM Borges [address]
--- OUTSIDE RECORDS SUMMARY | 2023-04-08 23:25 | External Medical Summary | Summary of Care ---
Author Name Unknown Organization [place] [address] Care Team Providers Care Environmental Compliance Specialist Name Role Phone Abram Owens MD Primary Care Provider Reason for Visit * Reason Comments Order Request Med Request Encounter Details Date Type Department Care Team Description 06/01/2018 [facility] Institution Telephone Internal Medicine [address] [address] Abram Owens MD [address] [place] [address] [phone] Order Request; Med Request Allergies No Known Allergiesas of this encounter Medications Medication Sig Dispensed Refills Start Date [...] 500 mcg by mouth daily. 0 Active folic acid 1 MG TabletIndications:Ch ronic respiratory failure with hypoxia, on home O2 therapy ([facility]) Take 1 Tab by mouth daily. 90 Tab 1 12/28/2017 Active fluticasone-salmeter ol (ADVAIR DISKUS) 250-50 MCG/DOSE inhalerIndications:S OB (shortness of breath) Inhale 1 Puff by mouth 2 times a day. 3 Disk Dosing Unit 3 01/03/2018 Active PredniSONE (DELTASONE) 10 MG TabletIndications:[place] chronic obstructive pulmonary disease (HCC) One daily with food 90 Tab 1 01/04/2018 Active ondansetron (ZOFRAN) 4 MG Tablet Take 1 Tab by mouth every 6 hours as needed for Nausea. 30 Tab 0 01/04/2018 Active ipratropium (ATROVENT) 0.02 % nebulizer solutionIndications: Severe chronic obstructive pulmonary disease (HCC),Stage 3 severe COPD by GOLD classification ([facility]) Inhale 2.5 mL via nebulizer 3 times a day. 270 mL 5 02/28/2018 Active PredniSONE (DELTASONE) 20 MG TabletIndications:Ch ronic respiratory failure with hypoxia, on home O2 therapy ([facility]) 2 tablets daily for 5 days then 1 tablet daily 15 Tab 0 04/25/2018 Active famotidine (PEPCID AC) 10 MG TabletIndications:Ga stroesophageal reflux disease with esophagitis Take 1 Tab by mouth 2 times a day. 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 significant response after bronchodilator ADVANCE DIRECTIVE INFORMATION 02/01/2008 Overview: No, Advance Directive brochure given to patient. Edentulous as of this encounter Resolved Problems Problem Noted Date Resolved Date [...] to trauma, extraction, or periodontal disease 10/27/2017 as of this encounter Immunizations Name Dates Previously Given Next Due PPD 04/22/2005 Pneumococcal Conjugate Vacc, 13 Valent (Prevnar) 10/20/2017 Pneumococcal Polysaccharide PPV23 (Pneumovax) 04/27/2017 Seasonal Influenza, Quadriva lent, No Preserve, 6 Mons & Above, IM 02/28/2018,03/12/2017 Seasonal Influenza, Trivalen t, with Preserve, 3yr & Above, Split 03/12/2009,04/24/2006,04/18/2005 TDAP (age 10 and older)(Boostrix) 10/20/2017 as of this encounter Social History Tobacco [...] End No recent travel history krystle ilable. as of this encounter Miscellaneous Notes * Telephone Encounter - Khadijah Rehman RN - 06/01/2018 1:52 PM EST * Telephone Encounter - Khadijah Rehman RN - 06/01/2018 1:26 PM EST Order fort Whitneyator walker faxed to [facility]. Thanks, Khadijah Rehman RN * Telephone Encounter - Abram Owens MD - 06/01/2018 1:23 PM EST ok * Telephone Encounter - Khadijah Rehman RN - 06/01/2018 1:[address] Owens Daniel is asking for something he can take regularly to prevent heartburn? Also asks for a Rolator walker as he needs to rest frequently with ambulation due to his COPD and poor respiratory status. He becomes extremely SOB with ambulation and any exertion. I pended an order. If you agree please sign order. Thanks, Khadijah Rehman RN in this encounter Plan of Treatment Upcoming Encounters Date Type Specialty Care Team Description 06/09/2018 Pharmacy Public Address System Operator, Pharmacy Reimbursement [address] [facility] [place] [address] 08/29/2018 Office Visit Internal Medicine Abram Owens MD [address] [place] [address] [place]RA[place] Burnham [address] [phone] Health Maintenance Due Date Last Done Comments *DEPRESSION SCREENING, RAMESH Chairez FOR PTS 18 AND OVER 05/31/2018 LUNG CANCER SCREENING YEARLY -USE SMARTSET 88199 06/23/2018 06/23/2017 DIABETES SCREEN EVERY 3 YRS- AGE 45 AND ABOVE 12/27/2020 12/27/2017, 06/23/2017, 06/18/2017, Additional history exists DTaP,Tdap,and Td Vaccines (2 - Td) 10/21/20272017 PNEUMOCOCCAL ADULT 65 YRS AND OVER Completed 2017, 04/27/2017 Influenza Vaccine (FLU shot) Completed , 03/12/2017, 03/12/2009, Additional history exists as of this encounter Implants Not on fileas of this encounter Visit Diagnoses Diagnosis Gastroesophageal reflux disease with esophagitis- Primary Chronic respiratory failure with hypoxia, on home O2 therapy (HCC) Oxygen dependent Dependence on supplemental oxygen Stage 3 severe COPD by GOLD classification (HCC) in this encounter Advance Directives Patient has advance care planning documents on file. For more information, please contact: ABRAHAM Borges [phone]
--- OUTSIDE RECORDS SUMMARY | 2023-04-08 23:25 | External Medical Summary | Summary of Care ---
Author Name Unknown Organization [place] [address] Care Team Providers Care Community Health Coordinator Name Role Phone Abram Owens MD Primary Care Provider [phone] Reason for Visit * Reason Comments Order Request Encounter Details Date Type Department Care Team Description 06/01/2018 Telephone Internal Medicine [address] [address] OhsKhadijah RN [address] [place] [address] [place] [address] [phone] Order Request Allergies No Known Allergiesas of this [...] (HCC),Stage 3 severe COPD by GOLD classification ([facility]) Inhale 2.5 mL via nebulizer 3 times a day. 270 mL 5 02/28/2018 Active PredniSONE (DELTASONE) 20 MG TabletIndications:Ch ronic respiratory failure with hypoxia, on home O2 therapy ([facility]) 2 tablets daily for 5 days then [...] Telephone Encounter - OhKhadijah pruett RN - 06/01/2018 1:53 PM EST [facility] needs the order to say "wheeled walker with seat". Not Rolator walker. I pended a new order. Thanks, Khadijah Rehman RN in this encounter Plan of Treatment Upcoming Encounters Date Type Specialty Care Team Description 06/09/2018 Pharmacy Tipping Machine Operator, Pharmacy Reimbursement [address] [place] [address] 08/29/2018 Office Visit Internal Medicine Abram Owens MD [address] [place] [address] ABRAH[place] Burnham [address] Health Maintenance Due Date Last Done Comments *DEPRESSION SCREENING, ANNUA L FOR PTS 18 AND OVER 05/31/2018 LUNG CANCER SCREENING YEARLY -USE SMARTSET 22713 06/23/2018 06/23/2017 DIABETES SCREEN EVERY 3 YRS- AGE 45 AND ABOVE 12/27/2020 12/27/2017, 06/23/2017, 06/18/2017, Additional history exists DTaP,Tdap,and Td Vaccines (2 - Td) 10/21/20272017 PNEUMOCOCCAL ADULT 65 YRS AND OVER Completed 2017, 04/27/2017 Influenza Vaccine (FLU shot) Completed , 03/12/2017, 03/12/2009, Additional history exists as of this encounter Implants Not on fileas of this encounter Visit Diagnoses Diagnosis Severe chronic obstructive pulmonary disease (HCC)- Primary Chronic airway obstruction, not elsewhere classified Chronic respiratory failure with hypoxia, on home O2 therapy (HCC) Stage 3 severe COPD by GOLD classification (HCC) Oxygen dependent Dependence on supplemental oxygen in this encounter Advance Directives Patient has advance care planning documents on file. For more information, please contact: ABRAHAM Borges [phone]
--- OUTSIDE RECORDS SUMMARY | 2023-04-08 23:25 | External Medical Summary | Summary of Care ---
Author Name Unknown Organization [place] [address] Care Team Providers Care Shovel Oiler Name Role Phone Abram wOens MD Primary Care Provider Reason for Visit * Reason Comments Order Request Encounter Details Date Type Department Care Team Description 06/01/2018 Telephone Internal Medicine [address] [address] OhsKhadijah RN [address] [place] [address] [place] [address] [phone] Order Request Allergies No Known Allergiesas of [...] home O2 therapy ([facility]) Take 1 Tab by mouth daily. [...] home O2 therapy ([facility]) 2 tablets daily for 5 days then [...] Encounter - Khadijah Rehman RN - 06/01/2018 2:46 PM EST Faxed "wheeled walker with seat" order to [facility]. Khadijah Rehman, RN * Telephone Encounter - Khadijah Rehman RN - 06/01/2018 1:53 PM EST [facility] needs the order to say "wheeled walker with seat". Not Rolator walker. I pended a new order. Thanks, Khadijah Rehman, RN in this encounter Plan of Treatment Upcoming Encounters Date Type Specialty Care Team Description 06/09/2018 Pharmacy Open Hearth Laborer, Pharmacy Reimbursement [address] [facility] [place] [address] 08/29/2018 Office Visit Internal Medicine Abram Owens MD [address] [place] [address] ABRAH[place] Burnham [address] Health Maintenance Due Date Last Done Comments *DEPRESSION SCREENING, ANNUA L FOR PTS 18 AND OVER 05/31/2018 LUNG CANCER SCREENING YEARLY -USE SMARTSET 82458 06/23/2018 06/23/2017 DIABETES SCREEN EVERY 3 YRS- [...] For more information, please contact: ABRAHAM Borges [phone]
--- OUTSIDE RECORDS SUMMARY | 2023-04-08 23:25 | External Medical Summary | Summary of Care ---
Author Name Unknown Organization [place] [address] Care Team Providers Care Zig Zag Stitcher Name Role Phone Abram Quiroz MD Primary Care Provider [phone] Reason for Visit * Reason Comments Medication Refill Encounter Details Date Type Department Care Team Description 08/18/2018 Refill Internal Medicine [address] [address] Abram Quiroz MD [address] [place] [address] [phone] SOB (shortness of breath) Allergies No Known Allergiesdocumented as of this encounter (statuses as of 08/18/2018) Medications Medication Sig Dispensed Refills Start Date [...] home O2 therapy ([facility]) Take 1 Tab by mouth daily. 90 [...] 3 Disk Dosing Unit 3 9 Active fluticasone-salmete rol (ADVAIR DISKUS) 250-50 MCG/DOSE inhalerIndications: SOB (shortness of breath) Inhale 1 Puff by mouth 2 times a day. 3 Disk Dosing Unit 3 8 08/19/19 19 Discontinued documented as of this encounter (statuses as of 08/18/2018) Active Problems Problem Noted Date Chronic respiratory [...] as of this encounter (statuses as of 08/18/2018) Resolved Problems Problem Noted Date Resolved Date [...] as of this encounter (statuses as of 08/18/2018) Immunizations Name Dates Previously Given Next Due [...] Date Former Smoker Cigarettes 2 50 Quit: 11/01 /2016 Smokeless Tobacco: Never Used Comments:started age 16 [...] Telephone Encounter - Abram Quiroz MD - 08/18/2018 1:41 PM EDT Signed Prescriptions: Disp Refills fluticasone-salmeterol (ADVAIR DISKUS) 250*3 Disk*3 Sig: Inhale 1 Puff by mouth 2 times a day. Authorizing Provider: ABRAM QUIROZ * Telephone Encounter - Shantelle Jacobo RN - 08/18/2018 1:18 PM EDT New rx's needed to send in for pt for indigent patient assistance program documented in this encounter Plan of Treatment Upcoming Encounters Date Type Specialty Care Team Description 08/31/2018 Pharmacy Digital Imaging Technician, Pharmacy Reimbursement [address] [facility] [place] [address] 09/23/2018 Office Visit Internal Medicine Abram Quiroz MD [address] [place] [address] [place] [address] Health Maintenance Due Date Last Done Comments LUNG CANCER SCREENING YEARLY-USE SMARTSET 74953 06/23/2018 06/23/2017 DIABETES SCREEN EVERY 3 YRS-AGE [...] breath documented in this encounter Advance Directives Patient has advance care planning documents on file. For more information, please contact: ABRAHAM Borges [phone]
--- OUTSIDE RECORDS SUMMARY | 2023-04-08 23:25 | External Medical Summary | Summary of Care ---
Author Name Unknown Organization [place] [address] Care Team Providers Care Depot Manager Name Role Phone Abram Owens MD Primary Care Provider [phone] Reason for Visit * Reason Comments Patient Assistance Program Encounter Details Date Type Department Care Team Description 08/31/2018 Pharmacy Pharmacy, [place] [address], [place] [id number] Coordinator, Pharmacy [facility] [address], [place] [id number] COPD, severe (HCC)* Allergies No Known Allergiesdocumented as of this encounter (statuses as of 09/01/2018) Medications Medication Sig Dispensed Refills Start Date [...] as of this encounter (statuses as of 09/01/2018) Active Problems Problem Noted Date Chronic respiratory [...] as of this encounter (statuses as of 09/01/2018) Resolved Problems Problem Noted Date Resolved Date [...] as of this encounter (statuses as of 09/01/2018) Immunizations Name Dates Previously Given Next Due [...] Progress Notes * Chele Gallardo, JAH - 08/17/2018 8:46 AM EDT Follow up needs made to company Coverage:Medicare A and B (No D) Patient ID: [id number] [address] [place] [address] Patient Phone Numbers RX:Advair Diskus Dose: 250-50 Quanity 3 Provider:Abram Owens MD Please call [employer] to verify status of application. Phone number: [phone] Forms sent to provider:08/17/2018 Approved: Received notification from [employer], patient has been approved for the patient assistance program. RX: Advair Diskus Next Refill: 11/07/2018 Enrollment expires 08/18/2019 Called patient [phone] (home) to make aware. JAH Manriquez Pharmaceutical Bead Supervisor 08/24/2018, 10:17 AM Follow up needs made to company Coverage:Medicare A and B (No D) [address] [facility] [address] Patient Phone Numbers RX:Proair HFA Dose: 108 Quanity 3 Provider:Roman ID# [id number] Please call [facility] to verify status of application. Phone number: [phone] Forms sent to provider:08/17/2018 Approved: [facility] received fax from [employer], they are requesting provider re-send prescriber section with signature on script section and also bottom line. PRC sent request to provider. [employer] rep advised they received the updated prescriber section, now application will go to benefit verification stage. Tev will send a fax of determination. JAH Manriquez Pharmaceutical Bead Supervisor 08/31/2018, 9:43 AM JAH Manriquez Pharmaceutical Bead Supervisor 08/23/2018, 1:26 PM JAH Manriquez Pharmaceutical Bead Supervisor 08/17/2018, 8:49 AM [facility], patient has been approved for the patient assistance program. Coverage: Medicare A and B (No D) RX: Proair HFA Next Refill: Tev will send fax refill form. Called patient [phone] (home) to make aware. JAH Manriquez Pharmaceutical Bead Supervisor 09/01/2018, 3:28 PM documented in this encounter Plan of Treatment Upcoming Encounters Date Type Specialty Care Team Description 09/23/2018 Office Visit Internal Medicine Abram Owens MD [address] [place] [address] ABRAHAM Burnham [address] 11/07/2018 Pharmacy Dental Practice Manager, Pharmacy Reimbursement [address] [facility] ABRAHAM Delgado [address] Health Maintenance Due Date Last Done Comments LUNG CANCER SCREENING YEARLY-USE SMARTSET 12089 06/23/2018 06/23/2017 DIABETES SCREEN EVERY 3 YRS-AGE [...] For more information, please contact: ABRAHAM Borges [address]
--- OUTSIDE RECORDS SUMMARY | 2023-04-08 23:25 | External Medical Summary | Summary of Care ---
Author Name Unknown Organization [place] [address] Care Team Providers Care Refining Supervisor Name Role Phone Abram Quiroz MD Primary Care Provider Unava ilable Reason for Visit * Reason Comments Medication Refill Encounter Details Date Type Department Care Team Description 07/18/2018 Refill Internal Medicine [address] [address] MssKhadijah RN [address] [place] [address] [phone] Severe chronic obstructive pulmonary disease (HCC) Allergies No Known Allergiesdocumented as of this encounter (statuses as of 07/18/2018) Medications Medication Sig Dispensed Refills Start Date [...] 500 mcg by mouth daily. 0 Active fluticasone-salmete rol (ADVAIR DISKUS) 250-50 MCG/DOSE inhalerIndications: SOB (shortness of breath) Inhale 1 Puff by mouth 2 times a day. 3 Disk Dosing Unit 3 8 Active ondansetron (ZOFRAN) 4 MG Tablet Take 1 Tab by mouth every 6 hours as needed for Nausea. 30 Tab 0 8 Active ipratropium (ATROVENT) 0.02 % nebulizer solutionIndications :Severe chronic obstructive pulmonary disease (HCC),Stage 3 severe COPD by GOLD classification ([place] [...] home O2 therapy ([facility]) Take 1 Tab by mouth daily. 90 Tab 1 9 Active PredniSONE (DELTASONE) 10 MG TabletIndications:S evere chronic obstructive pulmonary disease ([facility]) One daily with food 90 Tab 1 9 Active PredniSONE (DELTASONE) 10 MG TabletIndications:S evere chronic obstructive pulmonary disease ([facility]) One daily with food 90 Tab 1 8 07/18/19 19 Discontinued PredniSONE (DELTASONE) 20 MG TabletIndications:C hronic respiratory failure with hypoxia, on home O2 therapy (HCC) 2 tablets daily for 5 days then 1 tablet daily 15 Tab 0 8 07/18/19 19 Discontinued documented as of this encounter (statuses as of 07/18/2018) Active Problems Problem Noted Date Chronic respiratory [...] as of this encounter (statuses as of 07/18/2018) Resolved Problems Problem Noted Date Resolved Date [...] as of this encounter (statuses as of 07/18/2018) Immunizations Name Dates Previously Given Next Due [...] Telephone Encounter - Abram Quiroz MD - 07/18/2018 3:45 PM EST Signed Prescriptions: Disp Refills PredniSONE (DELTASONE) 10 MG Tablet 90 Tab 1 Sig: One daily with food Authorizing Provider: ABRAM QUIROZ * Telephone Encounter - Khadijah Rehman RN - 07/18/2018 1:59 PM EST Daniel needs his Prednisone reordered. Thanks, Khadijah Rehman, RN documented in this encounter Plan of Treatment Upcoming Encounters Date Type Specialty Care Team Description 07/25/2018 Pharmacy Satellite Specialist, Pharmacy Reimbursement [address] [place] [address] 08/29/2018 Office Visit Internal Medicine Abram Quiroz MD [address] [place] [address] ABRAH[place] Burnham [address] Health Maintenance Due Date Last Done Comments *DEPRESSION SCREENING, ANNUAL FOR PTS 18 AND OVER 05/31/2018 LUNG CANCER SCREENING YEARLY-USE SMARTSET 27558 06/23/2018 06/23/2017 DIABETES SCREEN EVERY 3 YRS-AGE [...] file. For more information, please contact: ABRAHAM oBrges [address]
--- OUTSIDE RECORDS SUMMARY | 2023-04-08 23:25 | External Medical Summary | Summary of Care ---
Author Name Unknown Organization [place] [address] Care Team Providers Care Senior User Experience Architect Name Role Phone Abram Owens MD Primary Care Provider Encounter Details Date Type Department Care Team Description 06/01/2018 Purchasing ExpeditorEsl Instructor Medicine [address] [address] OhsKhadijah RN [address] [place] [address] [place] [address] [phone] Gastroesophageal reflux disease with esophagitis*; Chronic respiratory failure with hypoxia, on home O2 therapy (HCC); Severe chronic obstructive pulmonary disease (HCC) Allergies No Known Allergiesas of this encounter Medications Medication Sig Dispensed Refills Start Date End Date Status MEDICAL INSTRUCTIONSIndicati ons:Severe chronic obstructive pulmonary disease (HCC),COPD exacerbation ([facility]) Nebulizer and tubing 1 Each 1 03/12/2017 [...] MG TabletIndications:Se pollo chronic obstructive pulmonary disease ([facility]) [...] on home O2 therapy ([facility]) 2 tablets daily for 5 [...] history krystle ilable. as of this encounter Progress Notes * Khadijah Rehman RN - 06/01/2018 1:45 PM EST CM progress note: Daniel has been having pretty bad heartburn. He is on daily Prednisone and likes to eat spicy foods. He has been eating many TUMS lately. Asks for something daily to prevent heartburn. Dr Owens ordered Famotidine twice daily and was sent to [facility]. He gets pretty SOB with any exertion and ambulation. Asks about getting a Rolator walker. Order signed by Dr Owens and sent to [facility] via fax at [phone]. He is using his nebulizer and inhalers as directed. Cautioned to always cover his mouth in cold weather to prevent breathing in the cold air. He usually wears a mask when going into the cold air. He is eating pretty good. Sleeps pretty good at night. Encouraged to call me with any questions or concerns. CM will follow up in 1-2 months. Khadijah Rehman RN in this encounter Plan of Treatment Upcoming Encounters Date Type Specialty Care Team Description 06/09/2018 Pharmacy Patient Relations Manager, Pharmacy Reimbursement [address] [facility] ABRAHAM Tran [id number] 08/29/2018 Office Visit Internal Medicine Abram Owens MD [address] [place] [address] ABRAHAM Burnham [address] Health Maintenance Due Date Last Done Comments *DEPRESSION SCREENING, ANNUA Mihaela FOR PTS 18 AND OVER 05/31/2018 LUNG CANCER SCREENING YEARLY -USE SMARTSET [id number] 06/23/2018 06/23/2017 DIABETES SCREEN EVERY 3 YRS- [...] with hypoxia, on home O2 therapy (HCC) Severe chronic obstructive pulmonary disease (HCC) Chronic airway obstruction, not elsewhere classified in this encounter Advance Directives Patient has advance care planning documents on file. For more information, please contact: ABRAHAM Borges [address]
--- OUTSIDE RECORDS SUMMARY | 2023-04-08 23:25 | External Medical Summary | Summary of Care ---
Author Name Unknown Organization [place] [address] Care Team Providers Care Supervisor Filter Assembly Name Role Phone Abram Quiroz MD Primary Care Provider Reason for Visit * Reason Comments Medication Refill Encounter Details Date Type Department Care Team Description 06/23/2018 Refill Internal Medicine [address] [address] OhsKhadijah RN [address] [place] [address] [phone] Chronic respiratory failure with hypoxia, on home O2 therapy (HCC) Allergies No Known Allergiesas of this encounter Medications Medication Sig Dispensed Refills Start Date End Date Status MEDICAL INSTRUCTIONSIndicat ions:Severe chronic obstructive pulmonary disease (HCC),COPD exacerbation ([facility]) Nebulizer and tubing 1 Each 1 7 [...] 3 Disk Dosing Unit 3 8 Active PredniSONE (DELTASONE) 10 MG TabletIndications:S evere chronic obstructive pulmonary disease (HCC) One daily with food 90 Tab 1 8 Active ondansetron (ZOFRAN) 4 MG Tablet Take 1 Tab by mouth every 6 hours as needed for Nausea. 30 Tab 0 8 Active ipratropium (ATROVENT) 0.02 % nebulizer solutionIndications :Severe chronic obstructive pulmonary disease (HCC),Stage 3 severe COPD by GOLD classification ([facility]) Inhale 2.5 mL via nebulizer 3 times a day. 270 mL 5 8 Active PredniSONE (DELTASONE) 20 MG TabletIndications:C hronic respiratory failure with hypoxia, on home O2 therapy ([facility]) 2 tablets daily for 5 days then 1 tablet daily 15 Tab 0 8 Active famotidine (PEPCID AC) 10 MG TabletIndications:G astroesophageal reflux disease with esophagitis Take 1 Tab by mouth 2 times a day. For heartburn 60 Tab 5 8 Active folic acid 1 MG TabletIndications:C hronic respiratory failure with hypoxia, on home O2 therapy ([facility]) Take 1 Tab by mouth daily. 90 Tab 1 9 Active folic acid 1 MG TabletIndications:C hronic respiratory failure with hypoxia, on home O2 therapy ([facility]) Take 1 Tab by mouth daily. 90 Tab 1 8 06/23/19 19 Discontinued as of this encounter Active Problems Problem [...] Telephone Encounter - Abram Quiroz MD - 06/23/2018 2:28 PM EST Signed Prescriptions: Disp Refills folic acid 1 MG Tablet 90 Tab 1 Sig: Take 1 Tab by mouth daily. Authorizing Provider: ABRAM QUIROZ * Telephone Encounter - Khadijah Rehman RN - 06/23/2018 2:22 PM EST Daniel needs the Folic Acid reordered. Thanks, Khadijah Rehman, RN in this encounter Plan of Treatment Upcoming Encounters Date Type Specialty Care Team Description 06/24/2018 Pharmacy Lead Java Programmer, [facility] [address] [facility] [phone] 08/29/2018 Office Visit Internal Medicine Abram Quiroz MD [address] [place] [address] ABRAHAM Burnham [address] Health Maintenance Due Date Last Done Comments *DEPRESSION SCREENING, RICHARDUA Mihaela FOR PTS 18 AND OVER 05/31/2018 LUNG CANCER SCREENING YEARLY -USE SMARTSET 74406 06/23/2018 06/23/2017 DIABETES SCREEN EVERY 3 YRS- AGE 45 AND ABOVE 12/27/2020 12/27/2017, 06/23/2017, 06/18/2017, Additional history exists DTaP,Tdap,and Td Vaccines (2 - Td) 10/21/20272017 PNEUMOCOCCAL ADULT 65 YRS AND OVER Completed 2017, 04/27/2017 Influenza Vaccine (FLU shot) Completed , 03/12/2017, 03/12/2009, Additional history exists as of this encounter Implants Not on fileas of this encounter Visit Diagnoses Diagnosis Chronic respiratory failure with hypoxia, on home O2 therapy (HCC) in this encounter Advance Directives Patient has advance care planning documents on file. For more information, please contact: ABRAHAM Borges [address]
--- OUTSIDE RECORDS SUMMARY | 2023-04-08 23:25 | External Medical Summary | Summary of Care ---
Author Name Unknown Organization [place] [address] Care Team Providers Care Proposal Engineer Name Role Phone Abram Owens MD Primary Care Provider Yoel brown Encounter Details Date Type Department Care Team Description 08/08/2018 Developer Trading SystemsAccordion Tuner Medicine [address] [address] OhsKhadijah RN [address] [place] [address] [place] [id number] Acute exacerbation of chronic obstructive pulmonary disease (COPD) ([facility])*; Severe chronic obstructive pulmonary disease (HCC); Chronic respiratory failure with hypoxia, on home O2 therapy ([facility]); Oxygen dependent Allergies No Known Allergiesdocumented as of this encounter (statuses as of 08/08/2018) Medications Medication Sig Dispensed Refills Start Date End Date Status MEDICAL INSTRUCTIONSIndicati ons:Severe chronic obstructive pulmonary disease (HCC),COPD exacerbation ([facility]) Nebulizer and tubing 1 Each 1 03/12/2017 [...] 500 mcg by mouth daily. 0 Active fluticasone-salmeter ol (ADVAIR DISKUS) 250-50 MCG/DOSE inhalerIndications:S OB (shortness of breath) Inhale 1 Puff by mouth 2 times a day. 3 Disk Dosing Unit 3 01/03/2018 Active ondansetron (ZOFRAN) 4 MG Tablet Take [...] MG TabletIndications:Se pollo chronic obstructive pulmonary disease ([facility]) One daily with food 90 Tab 1 07/18/2018 Active documented as of this encounter (statuses as of 08/08/2018) Active Problems Problem Noted Date Chronic respiratory [...] as of this encounter (statuses as of 08/08/2018) Resolved Problems Problem Noted Date Resolved Date [...] as of this encounter (statuses as of 08/08/2018) Immunizations Name Dates Previously Given Next Due [...] as of this encounter Progress Notes * Ohs, Khadijah Sunshine RN - 08/08/2018 2:21 PM EST Case Management Assessment Is this call for a hospital, group home or rehab facility discharge to home? No S: Reports: Daniel had some increased SOB and productive cough last week. He did call into the clinic and asked for a rescue kit. He is feeling better but not yet back to baseline. He says he is improved after finishing a Z-soto and course of Prednisone. This was done over the weekend. He reports some upper back pain that has improved since using the Z-soto and Prednisone. He is still coughing some and producing white to clear mucus. He is wearing his 02 at all times. Using his nebulizer and inhalers on a regular basis as well. He is agreeable to come in and get checked this week. He will have transportation on Wednesday. I encouraged him to come in just to make sure everything is resolving due to his severe COPD. Scheduled with Dr Owens for 2:25 pm on Wednesday. He promised he will call if he starts feeling worse. Denies any fever or chills. Eating and sleeping ok. O: Phone visit for CM 3 month assessment and f/u. Medications: takes [...] to communicate, understand instructions, process information. P: [employer] Interventions: Reinforce Self Management Action Plan established [...] -Avoid triggers -Clean inhalers once a week PCP Notified of enrollment in CM/HM program: Yes SNP Member? No Re-evaluation of plan of care and progress towards goals achievement: Plan to call patient in about 3 months and recheck in a few days to1 week to reassess and update plan of care, instructed to call [employer] or Primary Care Provider with change in symptoms or as needed before next follow-up, verbalizes understanding and agrees with plan. Khadijah Rehman, RN Outpatient [employer] documented in this encounter Plan of Treatment Upcoming Encounters Date Type Specialty Care Team Description 08/12/2018 Office Visit Internal Medicine Abram Owens MD [address] [place] [address] ABRAHAM Burnham [address] [phone] 08/29/2018 Office Visit Internal Medicine Abram Owens MD [address] [place] [address] ABRAHAM Burnham [address] [phone] Health Maintenance Due Date Last Done Comments *DEPRESSION SCREENING, ANNUAL FOR PTS 18 AND OVER 05/31/2018 LUNG CANCER SCREENING YEARLY-USE SMARTSET [id number] 06/23/2018 06/23/2017 DIABETES SCREEN EVERY 3 YRS-AGE [...] (HCC)- Primary Obstructive chronic bronchitis with exacerbation Severe chronic obstructive pulmonary disease (HCC) Chronic airway obstruction, not elsewhere classified Chronic respiratory failure with hypoxia, on home O2 therapy (HCC) Oxygen dependent Dependence on supplemental oxygen documented in this encounter Advance Directives Patient has advance care planning documents on file. For more information, please contact: ABRAHAM Borges [address]
--- OUTSIDE RECORDS SUMMARY | 2023-04-08 23:25 | External Medical Summary | Summary of Care ---
Author Name Unknown Organization [place] [address] Care Team Providers Care Concierge Receptionist Name Role Phone Abram Owens MD Primary Care Provider Reason for Visit * Reason Comments Advice Encounter Details Date Type Department Care Team Description 09/05/2018 Telephone Internal Medicine [address] [address] OhsKhadijah RN [address] [place] [address] [place] [address] [phone] Advice Allergies No Known Allergiesdocumented as of this encounter (statuses as of 09/05/2018) Medications Medication Sig Dispensed Refills Start Date [...] O2 therapy ([facility]) Take 1 Tab by mouth daily. [...] Dosing Unit 3 08/18/2018 Active predniSONE (DELTASONE) 20 MG TabletIndications:Vi ral URI Take 2 Tabs by mouth daily for 5 days. 10 Tab 0 09/05/2018 9 Active documented as of this encounter (statuses as of 09/05/2018) Active Problems Problem Noted Date Chronic respiratory [...] as of this encounter (statuses as of 09/05/2018) Resolved Problems Problem Noted Date Resolved Date [...] as of this encounter (statuses as of 09/05/2018) Immunizations Name Dates Previously Given Next Due [...] Telephone Encounter - Khadijah Rehman RN - 09/05/2018 2:41 PM EDT Daniel is aware. I advised him to call us back if not improving and he is agreeable. Khadijah Rehman RN * Telephone Encounter - Abram Owens MD - 09/05/2018 2:29 PM EDT This is likely viral * Telephone Encounter - Khadijah Rehman RN - 09/05/2018 2:02 PM EDT Daniel called to ask if something could be called in for him for a sinus infection? He says he has had this head cold for about 5-6 days and when he blows his nose it is "green and thick mucus". He is afraid it will get into his chest. Please advise. Thanks, Khadijah Rehman RN documented in this encounter Plan of Treatment Upcoming Encounters Date Type Specialty Care Team Description 09/23/2018 Office Visit Internal Medicine Abram Owens MD [address] [place] [address] ABRAHAM Burnham [address] 11/07/2018 Pharmacy Campground Attendant, Pharmacy Reimbursement [address] [facility] [place] [place] [address] [phone] Health Maintenance Due Date Last Done Comments LUNG CANCER SCREENING YEARLY-USE SMARTSET 33703 06/23/2018 06/23/2017 DIABETES SCREEN EVERY 3 YRS-AGE [...] as of this encounter Visit Diagnoses Diagnosis Viral URI- Primary Acute upper respiratory infections of unspecified site documented in this encounter Advance Directives Patient has advance care planning documents on file. For more information, please contact: ABRAHAM Borges [address]
--- OUTSIDE RECORDS SUMMARY | 2023-04-08 23:25 | External Medical Summary | Summary of Care ---
Author Name Unknown Organization [place] [address] Care Team Providers Care Jacquard Twine Polisher Operator Name Role Phone Abram Owens MD Primary Care Provider [phone] Reason for Visit * Reason Comments Patient Assistance Program Encounter Details Date Type Department Care Team Description 08/31/2018 Pharmacy Pharmacy, [place] [address] [place], [place] [phone] Coordinator, Pharmacy [facility] [address], [place] [phone] COPD, severe (HCC)* Allergies No Known Allergiesdocumented as of this encounter (statuses as of 08/31/2018) Medications Medication Sig Dispensed Refills Start Date [...] as of this encounter (statuses as of 08/31/2018) Active Problems Problem Noted Date Chronic respiratory [...] as of this encounter (statuses as of 08/31/2018) Resolved Problems Problem Noted Date Resolved Date [...] as of this encounter (statuses as of 08/31/2018) Immunizations Name Dates Previously Given Next Due [...] A and B (No D) Patient ID: [id number] [address] [place] [id number] Patient Phone Numbers RX:Advair Diskus Dose: 250-50 Quanity 3 Provider:Abram Owens MD Please call [employer] to verify status of application. Phone number: [phone] Forms sent to provider:08/17/2018 Approved: Received notification from [employer], patient has been approved for the patient assistance program. RX: Advair Diskus Next Refill: 11/07/2018 Enrollment expires 08/18/2019 Called patient [phone] (home) to make aware. JAH Manriquez Pharmaceutical Drug Enforcement Agent 08/24/2018, 10:17 AM Follow up needs made to company Coverage:Medicare A and B (No D) [facility] [address] Patient Phone Numbers RX:Proair HFA Dose: 108 Quanity 3 Provider:Roman ID# [id number] Please call [facility] to verify status of application. Phone number: [phone] Forms sent to provider:08/17/2018 Approved: PRC received fax from [facility], they are requesting provider re-send prescriber section with signature on script section and also bottom line. [employer]C sent request to provider. [employer] rep advised they received the updated prescriber section, now application will go to benefit verification stage. [employer] will send a fax of determination. JAH Manriquez Pharmaceutical Drug Enforcement Agent 08/31/2018, 9:43 AM JAH Manriquez Pharmaceutical Drug Enforcement Agent 08/23/2018, 1:26 PM JAH Mnariquez Pharmaceutical Drug Enforcement Agent 08/17/2018, 8:49 AM documented in this encounter Plan of Treatment Upcoming Encounters Date Type Specialty Care Team Description 09/23/2018 Office Visit Internal Medicine Abram Owens MD [address] [place] [address] ABRAHAM Burnham [address] [phone] 11/07/2018 Pharmacy Instructional Aide, Pharmacy Reimbursement [address] ABRAHAM Delgado [address] Health Maintenance Due Date Last Done Comments LUNG CANCER SCREENING YEARLY-USE SMARTSET 60759 06/23/2018 06/23/2017 DIABETES SCREEN EVERY 3 YRS-AGE [...] For more information, please contact: ABRAHAM Borges [address]
--- OUTSIDE RECORDS SUMMARY | 2023-04-08 23:25 | External Medical Summary | Summary of Care ---
Author Name Unknown Organization [place] [address] Care Team Providers Care Strap Buckler Name Role Phone Abram Owens MD Primary Care Provider [phone] Reason for Visit * Reason Comments Medication Question Encounter Details Date Type Department Care Team Description 06/09/2018 Pharmacy Pharmacy, [place] [address], [place] [id number] Coordinator, Pharmacy Reimbursement [address], [place] [id number] COPD, severe (HCC)* Allergies No Known Allergiesas of this encounter [...] O2 therapy ([facility]) 2 tablets daily for 5 days then 1 tablet daily 15 Tab 0 04/25/2018 Active as of this encounter Active Problems [...] Progress Notes * Chele Gallardo, JAH - 05/24/2018 12:20 PM EST Patient needs re-enrolled: Company: [employer], Teva, GSK RX: Daliresp, Proair HFA, Advair Diskus Provider: Abram Owens MD The patient was mailed forms 05/10/2018 to sign and mail back to PSYCHIATRIC office with proof of income. Once the forms are received in the PSYCHIATRIC office, the forms will be forwarded to the prescribing provider for a signature and submission to the appropriate pharmaceutical company. If the patient is approved for a PAP program, the free medication should arrive in approximately thirty (30) days. JAH Man[employer]quez [employer] Insurance Associate 05/24/2018, 12:20 PM PSYCHIATRIC mailed [employer] and Teva PAP re-enrollment forms. Daliresp through [employer] has been discontinued. Follow up patient. 06/24/2018 JAH Man[employer] Associate 06/14/2018, 4:26 PM in this encounter Plan of Treatment Upcoming Encounters Date Type Specialty Care Team Description 06/24/2018 Pharmacy Security Orderly, Pharmacy Reimbursement [address] [place] [address] 08/29/2018 Office Visit Internal Medicine Abram Owens MD [address] [place] [address] [place] [address] Health Maintenance Due Date Last Done Comments *DEPRESSION SCREENING, RAMESH Chairez FOR PTS 18 AND OVER 05/31/2018 LUNG CANCER SCREENING YEARLY -USE SMARTSET [id number] 06/23/2018 06/23/2017 DIABETES SCREEN EVERY 3 YRS- AGE 45 AND ABOVE 12/27/2020 12/27/2017, 06/23/2017, 06/18/2017, Additional history exists DTaP,Tdap,and Td Vaccines (2 - Td) 10/21/20272017 PNEUMOCOCCAL ADULT 65 YRS AND OVER Completed 2017, 04/27/2017 Influenza Vaccine (FLU shot) Completed , 03/12/2017, 03/12/2009, Additional history exists as of this encounter Implants Not on fileas of this encounter Visit Diagnoses Diagnosis COPD, severe (HCC)- Primary Chronic airway obstruction, not elsewhere classified in this encounter Advance Directives Patient has advance care planning documents on file. For more information, please contact: ABRAH[place] Borges [phone]
--- OUTSIDE RECORDS SUMMARY | 2023-04-08 23:25 | External Medical Summary | Summary of Care ---
Author Name Unknown Organization [place] [address] Care Team Providers Care Director Of Retail Name Role Phone Abram Owens MD Primary Care Provider Reason for Visit * Reason Comments case management Encounter Details Date Type Department Care Team Description 05/19/2018 Telephone Internal Medicine [address] [address] OhsKhadijah RN [address] [place] [address] [place] [address] [phone] case management Allergies No Known Allergiesas of this encounter [...] on home O2 therapy ([facility]) Take 1 Tab by mouth daily. 90 Tab 1 12/28/2017 Active fluticasone-salmeter ol (ADVAIR DISKUS) 250-50 MCG/DOSE inhalerIndications:S OB (shortness of breath) Inhale 1 Puff by mouth 2 times a day. 3 Disk Dosing Unit 3 01/03/2018 Active PredniSONE (DELTASONE) 10 MG TabletIndications:Se pollo chronic obstructive pulmonary disease ([facility]) One daily with food 90 Tab 1 01/04/2018 Active ondansetron (ZOFRAN) 4 MG Tablet Take 1 Tab by mouth every 6 hours as needed for Nausea. 30 Tab 0 01/04/2018 Active ipratropium (ATROVENT) 0.02 % nebulizer solutionIndications: Severe chronic obstructive pulmonary disease (HCC),Stage 3 severe COPD by GOLD classification ([facility]) Inhale 2.5 mL via nebulizer 3 times a day. 270 mL 5 02/28/2018 Active PredniSONE (DELTASONE) 20 MG TabletIndications:Ch ronic respiratory failure with hypoxia, on home O2 therapy ([facility]) 2 tablets daily for 5 days [...] Telephone Encounter - Khadijah Rehman RN - 05/19/2018 1:33 PM EST Call from Daniel asking for refills for his nebulizer medicines. Called [facility] in [place] and requested refills for neb medicine-Levalbuterol and Ipratropium. Will fill and deliver to [facility] here in town. Daniel will obtain from there. Khadijah Rehman RN in this encounter Plan of Treatment Upcoming Encounters Date Type Specialty Care Team Description 08/29/2018 Office Visit Internal Medicine Abram Owens MD [address] [place] [address] [place] [address] Health Maintenance Due Date Last Done Comments LUNG CANCER SCREENING YEARLY -USE SMARTSET 54747 06/23/2018 06/23/2017 DIABETES SCREEN EVERY 3 YRS- AGE 45 AND ABOVE 12/27/2020 12/27/2017, 06/23/2017, 06/18/2017, Additional history exists DTaP,Tdap,and Td Vaccines (2 - Td) 10/21/20272017 PNEUMOCOCCAL ADULT 65 YRS AND OVER Completed 2017, 04/27/2017 Influenza Vaccine (FLU shot) Completed , 03/12/2017, 03/12/2009, Additional history exists as of this encounter Implants Not on fileas of this encounter Advance Directives Patient has advance care planning documents on file. For more information, please contact: ABRAH[place] Borges [phone]
--- OUTSIDE RECORDS SUMMARY | 2023-04-08 23:25 | External Medical Summary | Summary of Care ---
Author Name Unknown Organization [place] [address] Care Team Providers Care Social Economist Name Role Phone Abram Owens MD Primary Care Provider [phone] Reason for Visit * Reason Comments Advice Encounter Details Date Type Department Care Team Description 09/20/2018 Telephone Internal Medicine [address] [address] OhsKhadijah RN [address] [place] [address] [phone] Advice Allergies No Known Allergiesdocumented as of this encounter (statuses as of 09/20/2018) Medications Medication Sig Dispensed Refills Start Date [...] as of this encounter (statuses as of 09/20/2018) Active Problems Problem Noted Date Chronic respiratory [...] as of this encounter (statuses as of 09/20/2018) Resolved Problems Problem Noted Date Resolved Date [...] as of this encounter (statuses as of 09/20/2018) Immunizations Name Dates Previously Given Next Due [...] Telephone Encounter - OhKhadijah pruett RN - 09/20/2018 1:59 PM EDT Daniel called to report that he is still coughing up greenish yellow thick mucus. Still SOB but this is his baseline. Denies any chills or fever. Feels weak but this is baseline as well. He did finish the course of Prednisone that he had started on 09-05 and it was finished 09/10/18. He will see you this Wednesday for his 6 month recheck. Wasn't sure if he needed an antibiotic or not? Thanks, Khadijah Rehman, RN documented in this encounter Plan of Treatment Upcoming Encounters Date Type Specialty Care Team Description 09/23/2018 Office Visit Internal Medicine Abram Owens MD [address] [place] [address] [place] [address] 11/07/2018 Pharmacy Head Trimmer, Pharmacy Reimbursement [address] [facility] [place] [address] Health Maintenance Due Date Last Done Comments LUNG CANCER SCREENING YEARLY-USE SMARTSET [id number] 06/23/2018 06/23/2017 DIABETES SCREEN EVERY 3 YRS-AGE [...] For more information, please contact: ABRAH[place] Borges [phone]
--- OUTSIDE RECORDS SUMMARY | 2023-04-08 23:25 | External Medical Summary | Summary of Care ---
Author Name Unknown Organization [place] [address] Care Team Providers Care Night Supervisor Name Role Phone Abram Owens MD Primary Care Provider Reason for Visit * Reason Comments Order Request Med Request Encounter Details Date Type Department Care Team Description 06/01/2018 Wood Barrel Reconditioner Telephone Internal Medicine [address] [address] Abram Owens MD [address] [place] [address] [phone] Order Request; Med Request Allergies No Known [...] O2 therapy ([facility]) 2 tablets daily for 5 [...] Type Specialty Care Team Description 06/09/2018 Pharmacy Rickshaw Driver, Pharmacy Reimbursement [address] [facility] [place] [address] 08/29/2018 Office Visit Internal Medicine Abram Owens MD [address] [place] [address] [place] [address] [phone] Health Maintenance Due Date Last Done Comments *DEPRESSION SCREENING, RAMESH Chairez FOR PTS 18 AND OVER 05/31/2018 LUNG CANCER SCREENING YEARLY -USE SMARTSET [id number] 06/23/2018 06/23/2017 DIABETES SCREEN EVERY 3 YRS- [...] For more information, please contact: ABRA[place] Borges [address]
--- OUTSIDE RECORDS SUMMARY | 2023-04-08 23:25 | External Medical Summary | Summary of Care ---
Author Name Unknown Organization [place] [address] Care Team Providers Care Cage Operator Name Role Phone Abram Owens MD Primary Care Provider Reason for Visit * Reason Comments Status Check Encounter Details Date Type Department Care Team Description 08/12/2018 Office Visit Internal Medicine [address] [address] Abram Owens MD [address] [place] [address] [phone] Bronchitis, complicated*; Risk and functional assessment Allergies No Known Allergiesdocumented as of this encounter (statuses as of 08/12/2018) Medications Medication Sig Dispensed Refills Start Date [...] 3 Disk Dosing Unit 3 8 Active ipratropium (ATROVENT) 0.02 % nebulizer [...] (severe cough). 30 Tab 0 9 Active ondansetron (ZOFRAN) 4 MG Tablet Take 1 Tab by mouth every 6 hours as needed for Nausea. 30 Tab 0 8 08/13/19 19 Discontinued famotidine (PEPCID) 20 MG Tablet Take 1 Tab by mouth 2 times a day. For heartburn 5 8 08/13/19 19 Discontinued documented as of this encounter (statuses as of 08/12/2018) Active Problems Problem Noted Date Chronic respiratory [...] as of this encounter (statuses as of 08/12/2018) Resolved Problems Problem Noted Date Resolved Date [...] as of this encounter (statuses as of 08/12/2018) Immunizations Name Dates Previously Given Next Due [...] Vital Sign Reading Time Taken Blood Pressure 142/70 08/12/2018 2:38 PM EST Pulse 118 08/12/2018 2:38 PM EST Temperature 36.8 C (98.2 F) 08/12/2018 2 :38 PM EST Respiratory Rate 20 08/12/2018 2:38 PM EST Oxygen Saturation 94% 08/12/2018 2:3 8 PM EST Inhaled Oxygen Concentration - - Weight 60.3 kg (133 lb) 08/12/2018 2:38 PM EST Height - - Body Mass Index 20.49 08/12/2018 2:38 PM EST documented in this encounter Patient Instructions * Patient Instructions* Shantelle Jacobo RN - 08/12/2018 2:46 PM EST Patient Instructions - Fall Prevention (This education is for all patients over 65 regardless of symptoms) Remember to take your current medications as prescribed. In order to prevent falls, you are encouraged to: Exercise Utilize assistive/adaptive devices Avoid multifocal lenses when walking Avoid hazards in home Maintain a regular toileting schedule Any questions please contact our office. Preventing Falls in the Home (This education is for all patients over 65 regardless of symptoms) As you get older, falls are more likely. Thats because your reaction time slows. Your muscles and joints may also get stiffer, making them less flexible. Illness, medications, and vision changes can also affect your balance. A fall could leave you unable to live on your own. To make your home safer, follow these tips: Floors Put nonskid pads under area rugs Remove throw rugs Replace worn floor coverings Tack carpets firmly to each step on carpeted stairs. Put nonskid strips on the edges of uncarpeted stairs Keep floors and stairs free of clutter and cords Arrange furniture so there are clear pathways Clean up any spills right away Bathrooms Install grab bars in the tub or shower Apply nonskid strips or put a nonskid rubber mat in the tub or shower Sit on a bath chair to bathe Use bathmats with nonskid backing Lighting Keep a flashlight in each room Put a nightlight along the pathway between the bedroom and the bathroom [employer] Patient Education Copyright 2008 - 2010 [employer] except where otherwise noted Preventing Falls: Exercises to Improve Balance, Flexibility, Strength, and Staying Power (This education is for all patients over 65 regardless of symptoms) Certain types of exercises may help make you less likely to fall. Try the ones below. Or do other exercises that your healthcare provider suggests. Depending on your health, you may need to start slowly. Dont let that stop you. Even small amounts of exercise can help you. Be sure to talk to yourhealthcare provider before starting any exercise program. Improve Balance Many types of exercise can help improve balance. Eliezer chi and yoga are good examples. Heres another one to try. You can do it anytime and almost anywhere. Stand next to a counter or solid support. Push yourself up onto your tiptoes. Hold for 5 seconds. If you start to lose your balance, hold on to the counter. Rest and repeat 5 times. Work up to holding for 20 to 30 seconds, if you can. Increase Flexibility Being more flexible makes it easier for you to move around safely. Try exercises like the seated hamstring stretch. Sit in a chair and put one foot on a stool. Straighten your leg and reach with both hands down either side of your leg. Reach as far down your leg as you can. Hold for about 20 seconds. Go back to the starting position. Then repeat 5 times. Switch legs. Build Strength Resistance exercises help build strength. You can do them without equipment. Or you can use weights, elastic bands, or special machines. One such exercise is called the biceps curl. You can hold a 1 pound weight or even a can of soup. Do this exercise at least 3 times a week. Strive for everyday. Sit up straight in a chair. Keep your elbow close to your body and your wrist straight. Bend your arm, moving your hand up to your shoulder. Then slowly lower your arm. Repeat 5 times. Switch to the other arm. Build Your Staying Power Aerobic exercises make your heart and lungs stronger so you can keep moving longer. Walking and swimming are two of the best types of exercises you can do. Using a stationary bike is great, too. Find an aerobic exercise that you enjoy. Start slowly and build up. Even 5 minutes is helpful. Aimfor a goal of 30 minutes, at least 3 times a week. You dont have to do 30 minutes in one session. Break it up and walk a little throughout the day. More Helpful Tips Start easy. Slowly work up to doing more. Talk with your healthcare provider about the best exercises for you. Call senior centers or health clubs about exercise programs. If needed, have a family member watch you walk every so often to check your stability. Exercise with a friend. Choose an activity you both enjoy. Try exercises that you can do anytime, anywhere. Here are two examples. Have someone with you when you first try these: Practice walking by placing one foot right in front of the other. Stand up and sit down 10 times. Repeat this throughout the day. [employer] Patient Education Copyright 2008 - 2010 [employer] except where otherwise noted. Preventing Falls: Moving Safely Using a Cane or Walker (This education is for all patients over 65 regardless of symptoms) Keep the cane away from your feet so you dont trip. A walking aid, such as a cane or walker, can help you stay more independent and avoid falls. Remember to keep your walking aid within easy reach when youre in a chair or in bed. And learn how to use it safely so you dont injure yourself. Using a Cane If you have a stronger side, hold the cane on that side. 17. Get your balance. 18. Move the cane and your weaker leg forward. 19. Support your weight on both the cane and your weaker side. 20. Step with your stronger leg. 21. Start again from step 1. If youre using a folding walker, be sure you know how to lock it open. Check that its locked open before each use. Using a Walker 7. Roll the walker (or lift it, if youre using one without wheels) forward about 12 inches. 8. Step forward with your weaker leg first. 9. Use the walker to help keep your balance. 10. Bring your other foot forward to the center of the walker. 11. Start again from step 1. Helpful Tips Check with your healthcare provider about the right walking aid to use. Ask about a walker with a seat attached. Check the tips of your cane or walker to make sure they have nonskid covers. Move slowly from room to room. Dont mejias. Sit down to get dressed. Use a ritu pack or backpack to keep your hands free. Get help for jobs that mean climbing, even on a stepstool. [employer] Patient Education Copyright 2008 - 2010 [employer] except where otherwise noted. Treating Urinary Incontinence in Men (This education is for all patients over 65 regardless of symptoms) You can't always control the release of urine. You may leak urine. Or you may not be able to hold your urine until you can get to a bathroom. This is called urinary incontinence. The problem can be managed. Talk to your doctor about your treatment options. Taking Medications Prescription medications may help you. They may: Help the sphincter to work better. (This is the muscle that closes to keep urine from leaking out of the bladder.) Help stop the bladder from dariel too often to push urine out. Help the bladder muscles contract with more force. Help relax the sphincter muscle and allow urine to flow more freely. Making Changes to Your Routine Certain changes in your daily routine may help. These include: Avoiding caffeine and alcohol. Using timed voiding. This is following a schedule for drinking fluids and urinating. Doing Kegel exercises daily. These exercises involve tightening the muscles in your sphincter and around your bladder to help strengthen them. Your doctor can explain how to do them. Using a Catheter A catheter is a narrow tube that is inserted through the urethra into the bladder. It drains urine.A condom catheter covers the penis. It channels urine into a collection bag. It is worn most of thetime. Intermittent catheterization means inserting a catheter to drain the bladder, then removing it. This is done on a regular schedule. Having Surgery If other options don't work, surgery may be recommended. If surgery is an option, your healthcare provider can discuss it with you and explain its risks and benefits. Healing After Prostate Surgery Surgery on the prostate gland can cause incontinence. Most often, the incontinence is only for a short time. It clears up when healing is complete. Very rarely, prostate surgery can result in permanent incontinence. documented in this encounter Progress Notes * Abram Owens MD - 08/12/2018 2:50 PM EST Nursing Notes: Shantelle Jacobo RN 08/12/18 [id number] Signed Here to recheck his bronchitis. Still with some pain rt ribcage radiating to back. He took a rescue pack of Zithromax and prednisone. He is on O2 and sats vary Past Medical History: Diagnosis Date Acute exacerbation of COPD with asthma ([facility]) 04/23/2017 [facility] Edentulous Inflammation of sacroiliac joint ([facility]) 04/24/05 Loss of teeth due to trauma, extraction, or periodontal disease Other abnormal glucose 04/23/05 glucose 156 Other abnormal glucose 02/22/08 glucose 167 Other disorders of vitreous 12/05 Posterior vitreous detachment OS Other specified disorders of rotator cuff syndrome of shoulder and allied disorders 05/10 right shoulder Pneumonia 06/13/2017 left basal infiltrate Pneumonia due to Pseudomonas ([facility]) 05/20/2017 Severe chronic obstructive pulmonary disease ([facility]) 10/28/2016 severe by ATS criteria. significant response [...] Smoking status: Former Smoker Packs/day: 2.00 Years: 50.00 Pack years: 100.00 Types: Cigarettes Last attempt to quit: 04/07/2016 Years since quittin.3 Smokeless tobacco: Never Used Tobacco comment: started age 16 Substance and Sexual Activity Alcohol use: Yes Comment: 3-4 beers per day. Was drinking 8 per day. Drug use: No Sexual activity: Yes Partners: Female Other Topics Concern Not on file Social History Narrative Not on file Current Outpatient Medications Medication Sig Dispense Refill PredniSONE (DELTASONE) 10 MG Tablet One daily with food 90 Tab 1 folic acid 1 MG Tablet Take 1 Tab by mouth daily. 90 Tab 1 famotidine (PEPCID AC) 10 MG Tablet Take 1 Tab by mouth 2 times a day. For heartburn 60 Tab 5 ipratropium (ATROVENT) 0.02 % nebulizer solution Inhale 2.5 mL via nebulizer 3 times a day. 270mL 5 fluticasone-salmeterol (ADVAIR DISKUS) 250-50 MCG/DOSE inhaler Inhale 1 Puff by mouth 2 times aday. 3 Disk Dosing Unit 3 roflumilast (DALIRESP) 500 MCG Tablet Take 500 [...] tubing 1 Each 1 O: Blood pressure 142/70, pulse 118, temperature 36.8 C (98.2 F), resp. rate 20, weight 60.3 kg(133 lb), SpO2 94 %. Neck is supple without adenopathy or thyromegaly. Chest is symmetrical and moves normally. The lungs are clear without wheezes, rales, rhonchi or rubs, and the heart is regular without murmurs or gallops, or ectopy. PMI not displaced. It hurts with deep breath A: J40 Bronchitis, complicated (primary encounter diagnosis) Plan: Hydrocodone-acetaminophen 5-325 mg po tabs Sig:Take 1 tab by mouth every 6 hours as needed for other (severe cough). Z13.9 Risk and functional assessment Plan: Pat scrn for fall risk Pres or abs of urin incont as Follow up: Return if symptoms worsen or fail to improve. documented in this encounter Nursing Notes * Shantelle Jacobo RN - 08/12/2018 2:38 PM EST Here to recheck his bronchitis. Still with some pain rt ribcage radiating to back. documented in this encounter Plan of Treatment Upcoming Encounters Date Type Specialty Care Team Description 09/23/2018 Office Visit Internal Medicine Abram Owens MD [address] [place] [address] [place] [address] Health Maintenance Due Date Last Done Comments *DEPRESSION SCREENING, ANNUAL FOR PTS 18 AND OVER 05/31/2018 LUNG CANCER SCREENING YEARLY-USE SMARTSET 53840 06/23/2018 06/23/2017 DIABETES SCREEN EVERY 3 YRS-AGE [...] Bronchitis, not specified as acute or chronic Risk and functional assessment Screening for unspecified condition documented in this encounter Advance Directives Patient has advance care planning documents on file. For more information, please contact: [place]RAH[place] Borges [address]
--- OUTSIDE RECORDS SUMMARY | 2023-04-08 23:25 | External Medical Summary | Summary of Care ---
Author Name Unknown Organization [place] [address] Care Team Providers Care Bacteriology Teacher Name Role Phone Abram Owens MD Primary Care Provider Reason for Visit * Reason Comments Medication Question Encounter Details Date Type Department Care Team Description 05/10/2018 Pharmacy Pharmacy, [place] [address], [place] [id number] Coordinator, Pharmacy Reimbursement [address], [place] [phone] COPD, severe (HCC)* Allergies No Known Allergiesas [...] [facility]) Take 1 Tab by mouth daily. [...] therapy ([facility]) 2 tablets daily for 5 days then [...] Progress Notes * Chele Gallardo, JAH - 03/16/2018 8:31 AM EDT Patient needs re-enrolled: Company: [employer], Teva, GSK RX: Daliresp, Proair HFA, Advair Diskus Provider: Abram Owens MD The patient was mailed forms 05/10/2018 to sign and mail back to [facility] office with proof of income. Once the forms are received in the [facility] office, the forms will be forwarded to the prescribing provider for a signature and submission to the appropriate pharmaceutical company. If the patient is approved for a PAP program, the free medication should arrive in approximately thirty (30) days. Forms mailed to patient 05/10/2018 Follow up patient: 05/20/2018 JAH Man[employer]quez [employer] Electric Welder Helper 03/16/2018, 8:32 AM [facility] rescheduled appointment to 06/09/2018, too soon to re-enroll for patient. JAH [employer] Electric Welder Helper 05/24/2018, 12:17 PM in this encounter Plan of Treatment Upcoming Encounters Date Type Specialty Care Team Description 06/09/2018 Pharmacy Retail Buyer, Pharmacy Reimbursement [address] [facility] [place] [address] 08/29/2018 Office Visit Internal Medicine Abram Owens MD [address] [place] [address] [place] [address] Health Maintenance Due Date Last Done Comments LUNG CANCER SCREENING YEARLY -USE SMARTSET 45879 06/23/2018 06/23/2017 DIABETES SCREEN EVERY 3 YRS- [...] For more information, please contact: AB[place] Borges [address]
--- OUTSIDE RECORDS SUMMARY | 2023-04-08 23:25 | External Medical Summary | Summary of Care ---
Author Name Unknown Organization [place] [address] Care Team Providers Care Hat Mender Name Role Phone Abram Owens MD Primary Care Provider Unava ilable Reason for Visit * Reason Comments Patient Assistance Program Encounter Details Date Type Department Care Team Description 06/24/2018 Pharmacy Pharmacy, [place] [address] [id number] Coordinator, Pharmacy Reimbursement [address] [id number] COPD, severe (HCC)* Allergies No Known Allergiesdocumented as of this encounter (statuses as of 07/14/2018) Medications Medication Sig Dispensed Refills Start Date [...] O2 therapy ([facility]) 2 tablets daily for 5 days then 1 tablet daily 15 Tab 0 04/25/2018 Active famotidine (PEPCID AC) 10 MG TabletIndications:Ga stroesophageal reflux disease with esophagitis Take 1 Tab by mouth 2 times a day. For heartburn 60 Tab 5 06/01/2018 Active documented as of this encounter (statuses as of 07/14/2018) Active Problems Problem Noted Date Chronic respiratory [...] as of this encounter (statuses as of 07/14/2018) Resolved Problems Problem Noted Date Resolved Date [...] as of this encounter (statuses as of 07/14/2018) Immunizations Name Dates Previously Given Next Due [...] Progress Notes * Chele Gallardo OSA - 06/14/2018 4:27 PM EST Follow up needs made to patient [phone] (home) , Patient Phone Numbers Coverage:Medicare A and B (No D) RX:Advair Diskus, Proair HFA Provider:Abram Owens MD Please call patient to verify status of GSK, Teva PAP applications. Forms sent: 06/15/2018 JAH [employer] Bindery Library Technical Assistant 06/14/2018, 4:28 PM PRC spoke to patient's son Jer, he is unsure if forms were ever received. [facility] sent second set offorms to patient at: [address] [place] [facility] [place] [address] [facility] will follow up patient 07/25/2018 JAH [employer]quez [employer] B[employer]y Library Technical Assistant 07/14/2018, 3:25 PM . documented in this encounter Plan of Treatment Upcoming Encounters Date Type Specialty Care Team Description 07/25/2018 Pharmacy Machine Maintenance Servicer, [facility] [address] [facility] [address] [phone] 08/29/2018 Office Visit Internal Medicine Abram Owens MD [address] [place] [address] [place] u[place]nham [address] Health Maintenance Due Date Last Done Comments *DEPRESSION SCREENING, ANNUAL FOR PTS 18 AND OVER 05/31/2018 LUNG CANCER SCREENING YEARLY-USE SMARTSET 75258 06/23/2018 06/23/2017 DIABETES SCREEN EVERY 3 YRS-AGE [...] For more information, please contact: [place] Borges [address]
--- OUTSIDE RECORDS SUMMARY | 2023-04-08 23:25 | External Medical Summary | Summary of Care ---
Author Name Unknown Organization [place] [address] Care Team Providers Care Medicine Worker Name Role Phone Abram Owens MD Primary Care Provider Reason for Visit * Reason Comments Patient Assistance Program Encounter Details Date Type Department Care Team Description 07/25/2018 Pharmacy Pharmacy, [place] [address], [place] [id number] Coordinator, Pharmacy [facility] [address], [place] [phone] COPD, severe (HCC)* Allergies No Known Allergiesdocumented as of this encounter (statuses as of 08/16/2018) Medications Medication Sig Dispensed Refills Start Date [...] 3 Disk Dosing Unit 3 01/03/2018 Active ipratropium (ATROVENT) 0.02 % nebulizer solutionIndications: [...] on home O2 therapy ([facility]) Take 1 Tab by mouth daily. 90 Tab 1 06/23/2018 Active documented as of this encounter (statuses as of 08/16/2018) Active Problems Problem Noted Date Chronic respiratory [...] as of this encounter (statuses as of 08/16/2018) Resolved Problems Problem Noted Date Resolved Date [...] as of this encounter (statuses as of 08/16/2018) Immunizations Name Dates Previously Given Next Due [...] Progress Notes * Chele Gallardo, JAH - 07/14/2018 3:27 PM EST Follow up needs made to patient [phone] (home) , Patient Phone Numbers Coverage:Medicare A and B (No D) RX:Advair Diskus, Proair HFA Provider:Abram Owens MD Please call patient to verify status of [employer] Cares PAP applications. Forms sent: 06/15/2018, resent 07/15/2018 JAH Manriquez Pharm[employer] Php Consultant 07/14/2018, 3:28 PM Completed GSK and Teva Cares applications for Advair Diskus and Proair HFA and proof of income werereceived on 08/16/2018. The documents were forwarded to Abram Owens MD to sign and submit to the company. If the patient is approved by the program, a 90 day supply of this medication should arrive at [address] [place] [address] in approximately 30 days. PRC follow up GSK, Teva 2 weeks 08/31/2018. JAH Manriquez Pharmaceutical Php Consultant 08/16/2018, 4:13 PM documented in this encounter Plan of Treatment Upcoming Encounters Date Type Specialty Care Team Description 09/23/2018 Office Visit Internal Medicine Abram Owens MD [address] [place] [address] [place] [address] Health Maintenance Due Date Last Done Comments LUNG CANCER SCREENING YEARLY-USE SMARTSET 64026 06/23/2018 06/23/2017 DIABETES SCREEN EVERY 3 YRS-AGE [...] For more information, please contact: ABRA[place] Borges [address]
--- OUTSIDE RECORDS SUMMARY | 2023-04-08 23:25 | External Medical Summary | Summary of Care ---
Author Name Unknown Organization [place] [address] Care Team Providers Care Scalping Machine Operator Name Role Phone Abram Owens MD Primary Care Provider Unava ilable Reason for Visit * Reason Comments FYI Encounter Details Date Type Department Care Team Description 08/08/2018 Telephone Internal Medicine [address] [address] [place], Khadijah Sunshine RN [address] [place] [address] [place] [address] [phone] FYI Allergies No Known Allergiesdocumented as of [...] home O2 therapy ([facility]) Take 1 Tab by mouth daily. 90 Tab 1 06/23/2018 Active PredniSONE (DELTASONE) 10 MG TabletIndications:Se pollo chronic obstructive pulmonary disease ([facility]) One daily with food 90 [...] Telephone Encounter - Abram Owens MD - 08/08/2018 2:57 PM EST Wait. * Telephone Encounter - Khadijah Rehman RN - 08/08/2018 2:15 PM EST Daniel finished his Z-soto and Prednisone over the weekend. He is improved. He wanted to know if he should take another rescue kit? I explained that the Azithromycin stays in his system for several days. Since he is improved he could wait a couple more days and see how he feels. He is agreeable to come in and be checked this Wednesday when he has transportation. He promised he will call if he starts feeling bad again. He is still having upper back pain although improved from last week. Just FYI documented in this encounter Plan of Treatment Upcoming Encounters Date Type Specialty Care Team Description 08/12/2018 Office Visit Internal Medicine Abram Owens MD [address] [place] [address] [place] [address] [phone] 08/29/2018 Office Visit Internal Medicine Abram Owens MD [address] [place] [address] [place] [address] [phone] Health Maintenance Due Date Last Done Comments *DEPRESSION SCREENING, ANNUAL FOR PTS 18 AND OVER 05/31/2018 LUNG CANCER SCREENING YEARLY-USE SMARTSET [id number] 06/23/2018 06/23/2017 DIABETES SCREEN EVERY 3 YRS-AGE [...] For more information, please contact: AB[place] Borges [address]
--- OUTSIDE RECORDS SUMMARY | 2023-04-08 23:26 | External Medical Summary | Summary of Care ---
Author Name Unknown Organization [place] [address] Care Team Providers Care Medical Practice Assistant Name Role Phone Abram Owens MD Primary Care Provider Encounter Details Date Type Department Care Team Description 04/25/2018 Material MoverGas Meter Repair Supervisor Medicine [address] [address] OhsKhadijah RN [address] [place] [address] [place] [address] [phone] Severe chronic obstructive pulmonary disease (HCC)*; Chronic respiratory failure with hypoxia, on home O2 therapy ([facility]); Oxygen dependent; COPD exacerbation ([facility]) Allergies No Known Allergiesas of this encounter Medications Medication Sig Dispensed Refills Start Date End Date Status MEDICAL INSTRUCTIONSIndicati ons:Severe chronic obstructive pulmonary disease (HCC),COPD exacerbation ([facility]) Nebulizer and tubing 1 Each 1 [...] hypoxia, on home O2 therapy ([facility]) Take 1 Tab by mouth daily. 90 Tab 1 12/28/2017 Active fluticasone-salmeter ol (ADVAIR DISKUS) 250-50 MCG/DOSE inhalerIndications:S OB (shortness of breath) Inhale 1 Puff by mouth 2 times a day. 3 Disk Dosing Unit 3 01/03/2018 Active PredniSONE (DELTASONE) 10 MG TabletIndications:Se pollo chronic obstructive pulmonary disease ([facility]) One daily with food 90 Tab [...] a day. 270 mL 5 02/28/2018 Active levoFLOXacin (LEVAQUIN) 500 MG TabletIndications:Ch ronic respiratory failure with hypoxia, on home O2 therapy ([facility]) Take 1 Tab by mouth daily for 10 days. until gone. 10 Tab 0 04/25/2018 8 Active PredniSONE (DELTASONE) 20 MG TabletIndications:Ch ronic respiratory failure with hypoxia, on home O2 therapy ([facility]) 2 tablets daily for 5 days [...] Notes * Ohs, Khadijah Sunshine RN - 04/25/2018 2:51 PM EST Case Management Assessment Is this call for a hospital, penitentiary or rehab facility discharge to home? No S: Reports: Daniel called to report increased SOB, productive cough for yellow mucus, increased weakness and malaise. He asks if something could be called to [facility] in [place] as he has noway in to see anyone. His is at work. Dr Owens is off so I spoke with Karina and she was kindenough to order Levaquin and Prednisone for him. He has a history of pneumonia and can get really sick fast. He is aware and will try and get started today if at all possible. Aware to call me back if no improvement in a day or so. He regularly takes 10mg Prednisone daily. She ordered 20 mg tablets. He is aware to finish this course and then return to the 10 mg daily. Encouraged to increase fluids for the next few days. He is eating small amounts regularly. His wifemade him chicken noodle soup today. O: Phone visit for CM annual assessment and f/u as well as COPD exacerbation. Medications: takes all medications as prescribed. A: Patient Centered Prioritized Goals: Development of self - management action plan with patient/caregiver/ provider. Patient and caregiver demonstrate basic understanding of their disease process. Exacerbations have been prevented, minimized or reduced in severity. Co-morbid conditions identified and managed. Patient/ caregiver demonstrates adherence to treatment plan. Identified Barriers: Lack of or limited access to reliable transportation and Older than 70 years FUNCTIONAL STATUS: [...] to communicate, understand instructions, process information. P: Material Mover Interventions: Reinforce Self Management Action Plan established [...] goals achievement: Plan to call patient in a few days and then in 3 months to reassess and update plan of care, instructed to call Material Mover or Primary Care Provider with change in symptoms or as needed before next follow-up, verbalizes understanding and agrees with plan. Khadijah Rehman, RN Outpatient Material Mover in this encounter Plan of Treatment Upcoming Encounters Date Type Specialty Care Team Description 05/10/2018 Pharmacy Manager Corporate, Pharmacy Reimbursement [address] [facility] [place] [address] [phone] 08/29/2018 Office Visit Internal Medicine Abram Owens MD [address] [place] [address] [place] [address] Health Maintenance Due Date Last Done Comments LUNG CANCER SCREENING YEARLY -USE SMARTSET 96018 06/23/2018 06/23/2017 DIABETES SCREEN EVERY 3 YRS- [...] (HCC) Oxygen dependent Dependence on supplemental oxygen COPD exacerbation (HCC) Obstructive chronic bronchitis with exacerbation in this encounter Advance Directives Patient has advance care planning documents on file. For more information, please contact: [place] Borges [address]
--- OUTSIDE RECORDS SUMMARY | 2023-04-08 23:26 | External Medical Summary | Summary of Care ---
Author Name Unknown Organization [place] [address] Care Team Providers Care Engineering Director Name Role Phone Abram Owens MD Primary Care Provider Encounter Details Date Type Department Care Team Description 04/29/2018 Financial ControllerFilling Layer Up Medicine [address] [address] OhsKhadijah RN [address] [place] [address] [place] [address] [phone] COPD exacerbation (HCC)*; Chronic respiratory failure with hypoxia, on home O2 therapy (HCC); Severe chronic obstructive pulmonary disease (HCC); Oxygen dependent Allergies No Known Allergiesas of this encounter [...] pollo chronic obstructive pulmonary disease ([facility]) One daily with food 90 Tab [...] [facility]) Take 1 Tab by mouth daily for 10 days. until gone. 10 Tab 0 04/25/2018 8 Active PredniSONE (DELTASONE) 20 MG TabletIndications:Ch ronic respiratory failure with hypoxia, on home O2 therapy ([facility]) 2 tablets daily for 5 days [...] this encounter Progress Notes * Ohs, Khadijah M, RN - 04/29/2018 2:15 PM EST CM progress for f/u COPD exacerbation. Daniel started the Levaquin and Prednisone on due to increased SOB and cough with yellow thick mucus. He c/u fatigue and more trouble breathing than he is baseline x 4-5 days. CM called to f/akilah and he says he is improved but not quite back to baseline. His Levaquin will be finished on so he has about 5 days or so remaining. He finished the Prednisone course today. He will restart the 10 mg daily as before tomorrow. He is eating and drinking. Using his 02 and his nebulizer treatments as directed. No edema of feet or legs. Bowels are moving and urinating ok. He was advised to call me if he doesn't continue to improve. CM will f/u in a couple months or sooner if needed. He always calls me if any concerns or questions. Khadijah Rehman RN in this encounter Plan of Treatment Upcoming Encounters Date Type Specialty Care Team Description 05/10/2018 Pharmacy Basket Maker, [facility] [address] [facility] [address] [phone] 08/29/2018 Office Visit Internal Medicine Abram Owens MD [address] [place] [address] [place] Burn[place] [address] Health Maintenance Due Date Last Done Comments LUNG CANCER SCREENING YEARLY -USE SMARTSET [id number] 06/23/2018 06/23/2017 DIABETES SCREEN EVERY 3 YRS- AGE 45 AND ABOVE 12/27/2020 12/27/2017, 06/23/2017, 06/18/2017, Additional history exists DTaP,Tdap,and Td Vaccines (2 - Td) 10/21/20272017 PNEUMOCOCCAL ADULT 65 YRS AND OVER Completed 2017, 04/27/2017 Influenza Vaccine (FLU shot) Completed , 03/12/2017, 03/12/2009, Additional history exists as of this encounter Implants Not on fileas of this encounter Visit Diagnoses Diagnosis COPD exacerbation (HCC)- Primary Obstructive chronic bronchitis with exacerbation Chronic respiratory failure with hypoxia, on home O2 therapy (HCC) Severe chronic obstructive pulmonary disease (HCC) Chronic airway obstruction, not elsewhere classified Oxygen dependent Dependence on supplemental oxygen in this encounter Advance Directives Patient has advance care planning documents on file. For more information, please contact: [place] Borges [address]
--- OUTSIDE RECORDS SUMMARY | 2023-04-08 23:26 | External Medical Summary | Summary of Care ---
Author Name Unknown Organization [place] [address] Phone Care Team Providers Care Liability Claims Examiner Name Role Phone Abram Owens MD Primary Care Provider [phone] Reason for Visit * Reason Comments STATUS CHECK MEDICATION ADMINISTRATION Flu and/or Pne umo Inj Encounter Details Date Type Department Care Team Description 02/28/2018 Office Visit Internal Medicine [address] [address] Abram Owens MD [address] [place] [address] [place] [id number] Severe chronic obstructive pulmonary disease (HCC)*;Stage 3 severe COPD by GOLD classification ([facility]);Need for prophylactic vaccination and inoculation against influenza Allergies No Known Allergiesas of this encounter Medications Prescription Sig. Disp. Refills Start Date End Date Status MEDICAL INSTRUCTIONSIndicat ions:Severe chronic obstructive pulmonary disease (HCC),COPD exacerbation (HCC) Nebulizer and tubing 1 Each 1 03/12/2017 Active THIAMINE (VITAMIN B-1) 100 MG Tablet Take 100 mg by mouth daily. 04/29/2017 Active albuterol (PROAIR HFA) 108 (90 BASE) MCG/ACT inhalerIndications: SOB (shortness of breath) Inhale 2 Puffs by mouth every 4 hours as needed for Shortness of Breath or Wheezing. 1 Inhaler 5 04/30/2017 Active oxygen GASIndications:Inc to 4LPM with ambulation/exertion Use 2 L/min(Oxygen) as directed continuous. Indications: Inc to 4LPM with ambulation/exer tion 04/28/2017 Active acetaminophen (TYLENOL) 500 MG Tablet Take 500 mg by mouth every 4 hours as needed for Pain. 11/18/2017 Active hydrocortisone acetate (ANUSOL-HC) 25 MG suppository Administer 25 mg into the rectum 2 times a day as needed for Hemorrhoids. Active Benzocaine 20 % gel Apply to the mouth or throat as needed. Active docusate sodium (COLACE) 100 MG Capsule Take 100 mg by mouth 2 times a day as needed for Constipation. Active Multiple Vitamins-Minerals (MULTIVITAMIN ADULTS) TABS Take by mouth daily. Active levalbuterol (XOPENEX) 1.25 MG/3ML nebulizer solution Use Three times daily 270 mL 5 11/25/2017 Active roflumilast (DALIRESP) 500 MCG Tablet Take 500 mcg by mouth daily. Active folic acid 1 MG TabletIndications:C hronic respiratory failure with hypoxia, on home O2 therapy ([facility]) Take 1 Tab by mouth daily. 90 Tab 1 12/28/2017 Active fluticasone-salmete rol (ADVAIR DISKUS) 250-50 MCG/DOSE inhalerIndications: SOB (shortness of breath) Inhale 1 Puff by mouth 2 times a day. 3 Disk Dosing Unit 3 01/03/2018 Active PredniSONE (DELTASONE) 10 MG TabletIndications:S evere chronic obstructive pulmonary disease ([facility]) One daily with food 90 Tab 1 01/04/2018 Active ondansetron (ZOFRAN) 4 MG Tablet Take 1 Tab by mouth every 6 hours as needed for Nausea. 30 Tab 0 01/04/2018 Active ipratropium (ATROVENT) 0.02 % nebulizer solutionIndications :Severe chronic obstructive pulmonary disease (HCC),Stage 3 severe COPD by GOLD classification ([facility]) Inhale 2.5 mL via nebulizer 3 times a day. 270 mL 5 02/28/2018 Active ipratropium (ATROVENT) 0.02 % nebulizer solutionIndications :Severe chronic obstructive pulmonary disease (HCC),Stage 3 severe COPD by GOLD classification ([facility]) Inhale 2.5 mL via nebulizer 3 times a day. 50 mL 0 02/22/2018 02/29/20 18 Discontinued as of this encounter Active Problems Problem Noted Date Chronic respiratory failure with hypoxia , on home O2 therapy ([facility]) 12/03/2017 Stage 3 severe COPD by GOLD classificati on ([facility]) 11/24/2017 Oxygen dependent 11/24/2017 History of tobacco use 10/20/2017 Severe chronic obstructive pulmonary dis ease ([facility]) 10/28/2016 Overview: severe by ATS criteria. significant response after bronchodilator ADVANCE DIRECTIVE INFORMATION 02/01/2008 Overview: No, Advance Directive brochure given to patient. Edentulous as of this encounter Resolved Problems Problem Noted Date Resolved Date Pneumonia 06/13/2017 10/27/2017 Overview: left basal infiltrate COPD exacerbation ([facility]) 10/16/2016 05/03/20 17 Inflammation of sacroiliac joint ([facility]) 5 03/12/2017 Other abnormal glucose 04/23/2005 7 Overview: [...] Assigned at Date Recorded Not on file as of this encounter Last Filed Vital Signs Vital Sign Reading Time Taken Blood Pressure 122/60 02/28/2018 1:36 PM EDT Pulse 80 02/28/2018 1:36 PM EDT Temperature 36.5 C (97.7 F) 02/28/2018 1 :36 PM EDT Respiratory Rate 20 02/28/2018 1:36 PM EDT Oxygen Saturation - - Inhaled Oxygen Concentration - - Weight 60.8 kg (134 lb) 02/28/2018 1:36 PM EDT Height - - Body Mass Index 20.64 02/28/2018 1:36 PM EDT in this encounter Instructions * Patient Instructions - Shantelle Jacobo RN - 02/28/2018 1:44 PM EDT ~~PATIENT INSTRUCTIONS FOR FLU SHOT~~ [...] OF EYES, FACE OR INSIDE OF NOSE. in this encounter Progress Notes * Shantelle Jacobo RN - 02/28/2018 1:44 PM EDT PRE - ADMINISTRATION DOCUMENTATION Are you allergic to latex? No Are you experiencing any cold symptoms or fever? No Have you had Guillain-F[place] Syndrome (an illness that causes paralysis)? No Have you had the flu shot in the past? YES Have you ever had a reaction to the flu shot? No Shantelle Jacobo RN, 02/28/2018 1:43 PM Immunization Administration Documentation Time Out Procedure Performed: Yes Patient Identified (Ask Name/Date of ): Yes Does the patient have a fever greater than 101 degrees today? No Patient allergic to latex? No VFC Stock: No Immunization(s) verified: Yes, Immunization Name: Flu, VIS Sheet(s) given: Yes Verified Side and Site: Yes Verified Shot(s) with Parent(s)/Patient: Yes * Abram Owens MD - 02/28/2018 1:43 PM EDT Formatting of this note may be different from the original. Jer continues with [facility] for his lungs. He is always short of breath, always on O2. No chest pain. Not eating very well. Still drinking a few beers a day. Health Maintenance addressed. Flu shot today. He does not have part D Medicare so can't get the Shingrix. Past Medical History: Diagnosis Date Acute exacerbation of COPD with asthma (HCC) 04/23/2017 [facility] Edentulous Inflammation of sacroiliac joint (HCC) 04/24/05 Loss of teeth due to trauma, extraction, or periodontal disease Other abnormal glucose 04/23/05 glucose 156 Other abnormal glucose 02/22/08 glucose 167 Other disorders of vitreous 12/05 Posterior vitreous detachment OS Other specified disorders of rotator cuff syndrome of shoulder and allied disorders 05/10 right shoulder Pneumonia 06/13/2017 left basal infiltrate Pneumonia due to Pseudomonas ([facility]) 05/20/2017 Severe chronic obstructive pulmonary disease ([facility]) 10/28/2016 severe by ATS [...] allergies indicates: No Known Allergies Social History Social History Marital status: Spouse name: N/A Number of children: 6 Years of education: N/A Occupational History Not on file. Social History Main Topics Smoking status: Former Smoker Packs/day: 2.00 Years: 50.00 Types: Cigarettes Quit date: 04/07/2016 Smokeless tobacco: Never Used Comment: started age 16 Alcohol use Yes Comment: 3-4 beers per day. Was drinking 8 per day. Drug use: No Sexual activity: Yes Partners: Female Other Topics Concern Not on file Social History Narrative Current Outpatient Prescriptions Medication Sig Dispense Refill ipratropium (ATROVENT) 0.02 % nebulizer solution Inhale 2.5 mL via nebulizer 3 times a day. 50 mL 0 PredniSONE (DELTASONE) 10 MG Tablet One daily with food 90 Tab 1 levalbuterol (XOPENEX) 1.25 MG/3ML nebulizer solution Use Three times daily 270 mL 5 acetaminophen (TYLENOL) 500 MG Tablet Take 500 mg by mouth every 4 hours as needed for Pain. albuterol (PROAIR HFA) 108 (90 BASE) MCG/ACT inhaler Inhale 2 Puffs by mouth every 4 hours as needed for Shortness of Breath or Wheezing. 1 Inhaler 5 THIAMINE (VITAMIN B-1) 100 MG Tablet Take 100 mg by mouth daily. ondansetron (ZOFRAN) 4 MG Tablet Take 1 Tab by mouth every 6 hours as needed for Nausea. 30 Tab 0 fluticasone-salmeterol (ADVAIR DISKUS) 250-50 MCG/DOSE inhaler Inhale 1 Puff by mouth 2 times a day. 3 Disk Dosing Unit 3 folic acid 1 MG Tablet Take 1 Tab by mouth daily. 90 Tab 1 roflumilast (DALIRESP) 500 MCG Tablet Take 500 mcg by mouth daily. Benzocaine 20 % gel Apply to the [...] continuous. Indications: Inc to 4LPM with ambulation/exertion MEDICAL INSTRUCTIONS Nebulizer and tubing 1 Each 1 LIPID PANEL Palmira Dt/Tm Resulted Value Status HOURS FASTING (hours) 02/17/08 3:12P 02/17/08 F Value: PATIENT NOT FASTING TRIGLYCERIDES (mg/dL) 02/17/08 3:12P 02/17/08 68 F CHOLESTEROL (mg/dL) 02/17/08 3:12P 02/17/08 134 F HDL (mg/dL) 02/17/08 3:12P 02/17/08 46 F CHOL/HDL RATIO (no units) 02/17/08 3:12P 02/17/08 2.9 F LDL (CALCULATED) (mg/dL) 02/17/08 3:12P 02/17/08 74 F BASIC METAB PANEL, BMP [place]ira Dt/Tm Resulted Value Status BUN (mg/dL) 06/18/17 9:59A 1/12/18 11 F CREATININE (mg/dL) 06/18/17 9:59A 06/18/17 [...] 9:59A 06/18/17 >60.0 F O: Blood pressure 122/60, pulse 80, temperature 36.5 C (97.7 F), resp. rate 20, weight 60.8 kg (134 lb). General appearance: well developed, well nourished and in no acute distress. Neck is supple withoutadenopathy or thyromegaly. Chest is symmetrical and moves normally. The lungs are clear without wheezes, rales, rhonchi or rubs, and the heart is regular without murmurs or gallops, or ectopy. PMI not displaced. No edema A: J44.9 Severe chronic obstructive pulmonary disease (hcc) (primary encounter diagnosis) Plan: Ipratropium bromide 0.02 % in soln Sig:Inhale 2.5 ml via nebulizer 3 times a day. J44.9 Stage 3 severe copd by gold classification ([facility]) Plan: Ipratropium bromide 0.02 % in soln Sig:Inhale 2.5 ml via nebulizer 3 times a day. Z23 Need for prophylactic vaccination and inoculation against influenza Plan: Influenza vacc, quad, pf, 6 months & up, 0.5 ml, im Follow up: Return in about 6 months (around 08/28/2018). Continue other meds as before. in this encounter Nursing Notes * Shantelle Jacobo RN - 02/28/2018 1:37 PM EDT 4 month check. in this encounter Plan of Treatment Upcoming Encounters Date Type Specialty Care Team Description 03/16/2018 Pharmacy Security Incident Response Specialist, Pharmacy Reimbursement [address] [place] [address] [phone] 03/28/2018 Pharmacy Security Incident Response Specialist, Pharmacy Reimbursement [address] [place] [address] [phone] 08/29/2018 Office Visit Internal Medicine Abram Owens MD [address] [place] [address] [place] [address] Health Maintenance Due Date Last Done Comments Zoster Vaccines HMT (1 of 2) 1992 Influenza Vaccine (FLU shot) (#1) 2018 03/12/2017, 03/12/2009, 04/24/2006, Additional history exists LUNG CANCER SCREENING YEARLY -USE SMARTSET 50162 06/23/2018 06/23/2017 DIABETES SCREEN EVERY 3 YRS- AGE 45 AND ABOVE 12/27/2020 12/27/2017, 06/23/2017, 06/18/2017, Additional history exists DTaP,Tdap,and Td Vaccines (2 - Td) 10/21/20272017 PNEUMOCOCCAL ADULT 65 YRS AND OVER Completed 2017, 04/27/2017 as of this encounter Implants Not on fileas of this encounter Visit Diagnoses Diagnosis Severe chronic obstructive p ulmonary disease (HCC) - Primary Chronic airway obstruction, not elsewhere classified Stage 3 severe COPD by GOLD classification (HCC) Need for prophylactic vaccin ation and inoculation against influenza in this encounter
--- OUTSIDE RECORDS SUMMARY | 2023-04-08 23:26 | External Medical Summary | Summary of Care ---
Author Name Unknown Organization [place] [address] Phone Care Team Providers Care Floral Assistant Name Role Phone Abram Owens MD Primary Care Provider [phone] Reason for Visit * Reason Comments MEDICATION PROBLEM Encounter Details Date Type Department Care Team Description 02/22/2018 Reinforcing Steel Worker Telephone Internal Medicine [address] [address] Abram Owens MD [address] [place] [address] [phone] MEDICATION PROBLEM Allergies No Known Allergiesas of this encounter [...] evere chronic obstructive pulmonary disease ([facility]) One daily with food 90 Tab 1 01/04/2018 Active ondansetron (ZOFRAN) 4 MG Tablet Take 1 Tab by mouth every 6 hours as needed for Nausea. 30 Tab 0 01/04/2018 Active ipratropium (ATROVENT) 0.02 % nebulizer solutionIndications :Severe chronic obstructive pulmonary disease ([facility]),Stage 3 severe COPD by GOLD classification ([facility]) Inhale 2.5 mL via nebulizer 3 times a day. 50 mL 0 02/22/2018 Active ipratropium (ATROVENT) 0.02 % nebulizer solution Inhale 2.5 mL via nebulizer 3 times a day. 75 mL 12 11/25/2017 02/23/20 18 Discontinued as of this encounter Active Problems Problem Noted Date Chronic respiratory failure with hypoxia , on home O2 therapy ([facility]) 12/03/2017 Stage 3 severe COPD by GOLD classificati on ([facility]) 11/24/2017 Oxygen dependent 11/24/2017 History of tobacco use 10/20/2017 Severe chronic obstructive pulmonary dis ease ([facility]) 10/28/2016 Overview: severe by ATS criteria. significant response after bronchodilator ADVANCE DIRECTIVE INFORMATION 02/01/2008 Overview: No, Advance Directive brochure given to patient. Edentulous as of this encounter Resolved Problems Problem Noted Date Resolved Date Pneumonia 06/13/2017 10/27/2017 Overview: left basal infiltrate COPD exacerbation (HCC) 10/16/2016 05/03/20 17 Inflammation of sacroiliac joint (HCC) 5 03/12/2017 Other abnormal glucose 04/23/2005 7 [...] No Preserve, 6 [employer], IM 03/12/2017 Seasonal Influenza, Trivalen t, with Preserve, 3yr [...] Not on file as of this encounter Miscellaneous Notes * Telephone Encounter - Khadijah Rehman RN - 02/22/2018 2:33 PM EDT Thanks. * Telephone Encounter - Abram Owens MD - 02/22/2018 2:28 PM EDT sure * Telephone Encounter - Khadijah Rehman RN - 02/22/2018 1:27 PM EDT Daniel is waiting for his refills for his Ipratropium through [facility]. He is almost out and they won't be delivered until Wednesday. Could we have 18-20 vials sent to [facility] in [place] to get him through til Wednesday? Thanks, Khadijah Rehman RN in this encounter Plan of Treatment Upcoming Encounters Date Type Specialty Care Team Description 02/28/2018 Office Visit Internal Medicine Abram Owens MD [address] [place] [address] [place] [address] [phone] 03/16/2018 Pharmacy Mining Plant Operator, Pharmacy Reimbursement [address] [place] [address] [phone] 03/28/2018 Pharmacy Mining Plant Operator, Pharmacy Reimbursement [address], [place] [address] Health Maintenance Due Date Last Done Comments Zoster Vaccines HMT (1 of 2) 1992 Influenza Vaccine (FLU shot) (#1) 2018 03/12/2017, 03/12/2009, 04/24/2006, Additional history exists LUNG CANCER SCREENING YEARLY -USE SMARTSET 16439 06/23/2018 06/23/2017 DIABETES SCREEN EVERY 3 YRS- [...] by GOLD classification ([facility]) in this encounter
--- OUTSIDE RECORDS SUMMARY | 2023-04-08 23:26 | External Medical Summary | Summary of Care ---
Author Name Unknown Organization [place] [address] Phone Care Team Providers Care Small Arms Repairer Name Role Phone Abram Owens MD Primary Care Provider [phone] Reason for Visit * Reason Comments MEDICATION QUESTION Encounter Details Date Type Department Care Team Description 03/21/2018 Pharmacy Pharmacy, [place] [address] [place] [address] Coordinator, Pharmacy [facility] [address] [place], [place] [id number] COPD, severe (HCC)* Allergies No Known Allergiesas of this encounter Medications Prescription Sig. Disp. Refills Start Date End Date Status MEDICAL INSTRUCTIONSIndicatio ns:Severe chronic obstructive pulmonary disease (HCC),COPD exacerbation (HCC) [...] Indications: Inc to 4LPM with ambulation/exert ion 04/28/2017 Active acetaminophen (TYLENOL) 500 MG Tablet [...] mouth daily. Active folic acid 1 MG TabletIndications:Chr onic respiratory failure with hypoxia, on home O2 therapy ([facility]) Take 1 Tab by mouth daily. 90 Tab 1 12/28/2017 Active fluticasone-salmetero l (ADVAIR DISKUS) 250-50 MCG/DOSE inhalerIndications:SO B (shortness of breath) Inhale 1 Puff by mouth 2 times a day. 3 Disk Dosing Unit 3 01/03/2018 Active PredniSONE (DELTASONE) 10 MG TabletIndications:Sev ere chronic obstructive pulmonary disease ([facility]) One daily with food 90 Tab 1 01/04/2018 Active ondansetron (ZOFRAN) 4 MG Tablet Take 1 Tab by mouth every 6 hours as needed for Nausea. 30 Tab 0 01/04/2018 Active ipratropium (ATROVENT) 0.02 % nebulizer solutionIndications:S evere chronic obstructive pulmonary disease ([facility]),Stage 3 severe COPD by GOLD classification ([facility]) Inhale 2.5 mL via nebulizer 3 times a day. 270 mL 5 02/28/2018 Active as of this encounter Active Problems Problem Noted Date Chronic respiratory failure with hypoxia , on home O2 therapy ([facility]) 12/03/2017 Stage 3 severe COPD by GOLD classificati on ([facility]) 11/24/2017 Oxygen dependent 11/24/2017 History of tobacco use 10/20/2017 Severe chronic obstructive pulmonary dis ease ([facility]) 10/28/2016 Overview: severe by ATS criteria. [...] Not on file as of this encounter Progress Notes * Chele Gallardo OSA - 03/21/2018 10:23 AM EDT A refill order was placed for Proair HFA from the [employer] program. A 90 day supply will be shipped to [address] [place] [address] and arrive in 7 to 10 business days. The next refill order is due Last refill, [facility] sched re-enrollment. JAH Manriquez Pharmaceutical Consulting Nurse 03/21/2018, 10:25 AM in this encounter Plan of Treatment Upcoming Encounters Date Type Specialty Care Team Description 03/28/2018 Pharmacy Embroidery Assistant, Pharmacy Reimbursement [address] [place] [address] 05/10/2018 Pharmacy Embroidery Assistant, Pharmacy Reimbursement [address] [place] [address] [phone] 08/29/2018 Office Visit Internal Medicine Abram Owens MD [address] [place] [address] [place] [address] [phone] Health Maintenance Due Date Last Done Comments LUNG CANCER SCREENING YEARLY -USE SMARTSET 67123 06/23/2018 06/23/2017 DIABETES SCREEN EVERY 3 YRS- AGE 45 AND ABOVE 12/27/2020 12/27/2017, 06/23/2017, 06/18/2017, Additional history exists DTaP,Tdap,and Td Vaccines (2 - Td) 10/21/20272017 PNEUMOCOCCAL ADULT 65 YRS AND OVER Completed 2017, 04/27/2017 Influenza Vaccine (FLU shot) Completed , 03/12/2017, 03/12/2009, Additional history exists as of this encounter Implants Not on fileas of this encounter Visit Diagnoses Diagnosis COPD, severe (HCC) - Primary Chronic airway obstruction, not elsewhere classified in this encounter
--- OUTSIDE RECORDS SUMMARY | 2023-04-08 23:26 | External Medical Summary | Summary of Care ---
Author Name Unknown Organization [place] [address] Phone Care Team Providers Care Faculty Research Physician Name Role Phone Abram Owens MD Primary Care Provider [phone] Reason for Visit * Reason Comments MEDICATION QUESTION Encounter Details Date Type Department Care Team Description 03/28/2018 Pharmacy Pharmacy, [place] [address], [place] [id number] Coordinator, Pharmacy [facility] [address], [place] [id number] COPD, severe (HCC)* Allergies No Known Allergiesas [...] hypoxia, on home O2 therapy ([facility]) Take 1 Tab by mouth daily. 90 Tab 1 12/28/2017 Active fluticasone-salmetero l (ADVAIR DISKUS) 250-50 MCG/DOSE inhalerIndications:SO B (shortness of breath) Inhale 1 Puff by mouth 2 times a day. 3 Disk Dosing Unit 3 01/03/2018 Active PredniSONE (DELTASONE) 10 MG TabletIndications:Sev ere chronic obstructive pulmonary disease ([facility]) One daily with food 90 Tab 1 01/04/2018 Active ondansetron (ZOFRAN) 4 MG Tablet Take 1 Tab by mouth every 6 hours as needed for Nausea. 30 Tab 0 01/04/2018 Active ipratropium (ATROVENT) 0.02 % nebulizer solutionIndications:S evere chronic obstructive pulmonary disease ([facility]),Stage 3 severe COPD by GOLD classification ([facility]) Inhale 2.5 mL via nebulizer 3 times a day. 270 mL 5 02/28/2018 Active as of this encounter Active Problems Problem Noted Date Chronic respiratory failure with hypoxia , on home O2 therapy ([facility]) 12/03/2017 Stage 3 severe COPD by GOLD classificati on ([facility]) 11/24/2017 Oxygen dependent 11/24/2017 History of tobacco use 10/20/2017 Severe chronic obstructive pulmonary dis ease ([facility]) 10/28/2016 Overview: severe by ATS criteria. significant [...] Progress Notes * Chele Gallardo OSA - 01/14/2018 11:[address] refill: Company: [employer]-Phone number [phone] Id# [id number] Rx: Advair Diskus Dose:250-50 Quantity: 3 RX #[id number] Provider: Abram Owens MD Provider Id#[id number] Refill # 3 of 3 Next Refill Last refill, sched re-enrollment Enrollment Expires 08/03/2018 JAH Manriquez Pharmaceutical Stoneworking Belt Sander 01/14/2018, 11:08 AM A refill order was placed for Advair Diskus from the [employer] program. A 90 day supply will be shipped to [address] [place], [place] [id number] and arrive in 7 to 10 business days. Order #[id number] The next refill order is due Last refill, [facility] sched re-enrollment. Chele Gallardo [employer]AH [employer] Stoneworking Belt Sander 03/28/2018, 8:11 AM in this encounter Plan of Treatment Upcoming Encounters Date Type Specialty Care Team Description 03/28/2018 Pharmacy Full Stack Python Developer, Pharmacy Reimbursement [address] [place] [address] [phone] COPD, severe (HCC)* 05/10/2018 Pharmacy Full Stack Python Developer, Pharmacy Reimbursement [address] [place] [address] [phone] 08/29/2018 Office Visit Internal Medicine Abram Owens MD [address] [place] [address] [place] [address] Health Maintenance Due Date Last Done Comments LUNG CANCER SCREENING YEARLY -USE SMARTSET 13726 06/23/2018 06/23/2017 DIABETES SCREEN EVERY 3 YRS- [...]
--- OUTSIDE RECORDS SUMMARY | 2023-04-08 23:26 | External Medical Summary | Summary of Care ---
Author Name Unknown Organization [place] [address] Phone Care Team Providers Care Electronics Maintenance Technician Name Role Phone Abram Owens MD Primary Care Provider [phone] Reason for Visit * Reason Comments ADVICE Encounter Details Date Type Department Care Team Description 01/04/2018 Telephone Internal Medicine [address] [address] OhsKhadijah RN [address] [place] [address] [phone] ADVICE Allergies No Known Allergiesas of this encounter [...] times daily 270 mL 5 11/25/2017 Active ipratropium (ATROVENT) 0.02 % nebulizer solution Inhale 2.5 mL via nebulizer 3 times a day. 75 mL 12 11/25/2017 Active roflumilast (DALIRESP) 500 MCG Tablet Take 500 mcg by mouth daily. Active folic acid 1 MG TabletIndications:C hronic respiratory failure with hypoxia, on home O2 therapy ([facility]) Take 1 Tab by mouth daily. 90 Tab 1 12/28/2017 Active levofloxacin (LEVAQUIN) 750 MG TabletIndications:x 10 days Take 750 mg by mouth daily. Indications: x 10 days 12/28/2017 01/07/20 18 Active fluticasone-salmete rol (ADVAIR DISKUS) 250-50 MCG/DOSE inhalerIndications: SOB (shortness of breath) Inhale 1 Puff by mouth 2 times a day. 3 Disk Dosing Unit 3 01/03/2018 Active PredniSONE (DELTASONE) 10 MG TabletIndications:S evere chronic obstructive pulmonary disease ([facility]) One daily with food 90 Tab 1 01/04/2018 Active ondansetron (ZOFRAN) 4 MG Tablet Take 1 Tab by mouth every 6 hours as needed for Nausea. 30 Tab 0 01/04/2018 Active PredniSONE (DELTASONE) 10 MG TabletIndications:S evere chronic obstructive pulmonary disease ([facility]) One daily with food 30 Tab 5 06/25/2017 01/05/20 18 Discontinued ipratropium (ATROVENT) 0.02 % nebulizer solutionIndications :Stage 3 severe COPD by GOLD classification ([facility]) Inhale 2.5 mL via nebulizer 3 times a day. 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 significant response after bronchodilator ADVANCE DIRECTIVE INFORMATION 02/01/2008 Overview: No, Advance Directive brochure given to patient. Edentulous as of this encounter Resolved Problems Problem Noted Date Resolved Date Pneumonia 06/13/2017 10/27/2017 Overview: left basal infiltrate COPD exacerbation ([facility]) 10/16/2016 05/03/20 17 Inflammation of sacroiliac joint ([facility]) 5 03/12/2017 Other abnormal glucose 04/23/2005 7 [...] Conjugate Vacc, 13 Valent (Prevnar) 10/20/2017 Pneumococcal Polyvalent Vacc (Pneumovax) 017 Seasonal Influenza, Quadriva lent, No Preserve, 6 [...] Telephone Encounter - Khadijah Rehman RN - 01/04/2018 3:54 PM EDT Daniel is aware. Thanks, Khadijah Rehman, FRANCES * Telephone Encounter - Rafy Low MD - 01/04/2018 3:49 PM EDT Sent Paulino to pharmacy. Will need appt if nausea not improving as he tapers down on prednisone. * Telephone Encounter - Khadijah Rehman RN - 01/04/2018 3:30 PM EDT Daniel reports terrible nausea over the last 2-3 days. He is not vomiting but not eating much. Advisedto try soft bland foods small amounts frequently. Encouraged to try sips of water and galina brandie often to prevent dehydration. He says he hasn't beensick like this for a long time. He denies any diarrhea just the constant nausea. Could something be ordered for the nausea? Thanks, Khadijah Rehman, FRANCES He is on daily Prednisone 10 mg but was sent home on 50mg tabs x 5 days when he was recently discharged from [facility] with COPD exacerbation-wondering if this upset his stomach? He said he had Pepto and I advised to avoid due to the Aspirin-Advised TUMS if they help him. in this encounter Plan of Treatment Upcoming Encounters Date Type Specialty Care Team Description 01/14/2018 Pharmacy Child Psychologist, Pharmacy Reimbursement [address] [place] [address] [phone] 02/28/2018 Office Visit Internal Medicine Abram Owens MD [address] [place] [address] [place] [address] [phone] 03/16/2018 Pharmacy Child Psychologist, Pharmacy Reimbursement [address] [place] [address] [phone] Health Maintenance Due Date Last Done Comments Influenza Vaccine (FLU shot) (#1) 2018 03/12/2017, 03/12/2009, 04/24/2006, Additional history exists LUNG CANCER SCREENING YEARLY -USE SMARTSET 18506 06/23/2018 06/23/2017 DIABETES SCREEN EVERY 3 YRS- AGE 45 AND ABOVE 12/27/2020 12/27/2017, 06/23/2017, 06/18/2017, Additional history exists DTaP,Tdap,and Td Vaccines (2 - Td) 10/21/20272017 PNEUMOCOCCAL ADULT 65 YRS AND OVER Completed 2017, 04/27/2017 as of this encounter Implants Not on fileas of this encounter
--- OUTSIDE RECORDS SUMMARY | 2023-04-08 23:26 | External Medical Summary | Summary of Care ---
Author Name Unknown Organization [place] [address] Phone Care Team Providers Care Geological Drafter Name Role Phone Abram Owens MD Primary Care Provider [phone] Reason for Visit * Reason Comments MEDICATION QUESTION Encounter Details Date Type Department Care Team Description 01/14/2018 Pharmacy Pharmacy, [place] [address] [place], [place] [id number] Coordinator, Pharmacy [facility] [address] [place], [place] [id number] COPD, severe (HCC)* Allergies No Known Allergiesas [...] Indications: Inc to 4LPM with ambulation/exerti on 04/28/2017 Active acetaminophen (TYLENOL) 500 MG Tablet [...] evere chronic obstructive pulmonary disease ([facility]) One daily with food 90 Tab 1 01/04/2018 Active ondansetron (ZOFRAN) 4 MG Tablet Take 1 Tab by mouth every 6 hours as needed for Nausea. 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 significant response after bronchodilator ADVANCE DIRECTIVE INFORMATION 02/01/2008 Overview: No, Advance Directive brochure given to patient. Edentulous as of this encounter Resolved Problems Problem Noted Date Resolved Date Pneumonia 06/13/2017 10/27/2017 Overview: left basal infiltrate COPD exacerbation ([facility]) 10/16/2016 05/03/20 17 Inflammation of sacroiliac [...] Progress Notes * Chele Gallardo OSA - 12/31/2017 9:[address] refill: Company: [employer]-Phone number [phone] Id# [id number] Rx: Advair Diskus Dose:250-50 Quantity: 3 RX #Please update Provider: Abram Owens MD Provider Id#[id number] PRC sent script request to provider 12/31/2017 Refill # 2 of 3 Next Refill 03/28/2018 Enrollment Expires 08/03/2018 JAH [employer] Dry Wall Installer 12/31/2017, 9:19 AM LENI called to place refill, shipment went out to patient on 01/07/2018. Prescription #[id number] AJH [employer] Dry Wall Installer 01/14/2018, 11:04 AM in this encounter Plan of Treatment Upcoming Encounters Date Type Specialty Care Team Description 02/28/2018 Office Visit Internal Medicine Abram Owens MD [address] [place] [address] [place] [address] 03/16/2018 Pharmacy Weasand Trimmer, Pharmacy Reimbursement [address] [place] [address] [phone] 03/28/2018 Pharmacy Weasand Trimmer, Pharmacy Reimbursement [address] [place] [address] [phone] Health Maintenance Due Date Last Done Comments Influenza Vaccine (FLU shot) (#1) 2018 03/12/2017, 03/12/2009, 04/24/2006, Additional history exists LUNG CANCER SCREENING YEARLY -USE SMARTSET 32559 06/23/2018 06/23/2017 DIABETES SCREEN EVERY 3 YRS- [...]
--- OUTSIDE RECORDS SUMMARY | 2023-04-08 23:26 | External Medical Summary | Summary of Care ---
Author Name Unknown Organization [place] [address] Phone Care Team Providers Care Sheriff'S Officer Name Role Phone Abram Owens MD Primary Care Provider Encounter Details Date Type Department Care Team Description 02/22/2018 Inclusion InternDirector Of Content And Programming Medicine [address] [address] Ohs, Khadijah Sunshine RN [address] [place] [address] [place] [address] [phone] Severe chronic obstructive pulmonary disease (HCC)*;Chronic respiratory failure with hypoxia, on home O2 therapy ([facility]);Oxygen dependent Allergies No Known Allergiesas of this encounter Medications Prescription Sig. Disp. 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 significant response after bronchodilator ADVANCE DIRECTIVE INFORMATION 02/01/2008 Overview: No, Advance Directive brochure given to patient. Edentulous as of this encounter Resolved Problems Problem Noted Date Resolved Date Pneumonia 06/13/2017 10/27/2017 Overview: left basal infiltrate COPD exacerbation ([facility]) 10/16/2016 05/03/20 17 Inflammation of sacroiliac joint ([facility]) 5 03/12/2017 Other abnormal glucose 04/23/2005 7 [...] Notes * Ori, Khadijah Sunshine RN - 02/22/2018 2:58 PM EDT Case Management Assessment Is this call for a hospital, detention or rehab facility discharge to home? No S: Reports: Daniel called asking about his nebulizer medicine. He did call [facility] in [place] to reorder his nebulizer medicines although says he doesn't have enough Ipratropium to get him through til Wednesday 02/28 until [facility] delivers. Message to Dr Owens and he will order about 18 vials from [facility] in [place] to reach through Wednesday. He says his breathing isn't to good although no worse. He gets played out quickly with any activity. He need frequent rests. He says he has a flat tire on his vehicle and a friend is coming to changeit for him. He says "I know I can't do it". He does have a productive cough for white to clear mucus. He uses his 02 continuously. He says he is eating and sleeping well. He continues the Prednisone 10 mg daily. He follows with pulmonary of [facility]. Encouraged to call us with any problem, concern or questions. O: Phone visit for CM 3 month [...] to communicate, understand instructions, process information. P: Inclusion Intern Interventions: Reinforce Self Management Action Plan established at previous visit Reinforced "call back instructions" if weight fails to return to baseline, urine outputs decrease, symptoms increase Reinforced safety education / fall prevention Reinforced [...] to call patient in about 3 months to reassess and update plan of care, instructed to call CaseManager or Primary Care Provider with change in symptoms or as needed before next follow-up, verbalizes understanding and agrees with plan. Khadijah Rehman RN Outpatient Inclusion Intern in this encounter Plan of Treatment Upcoming Encounters Date Type Specialty Care Team Description 02/28/2018 Office Visit Internal Medicine Abram Owens MD [address] [place] [address] [place] [address] [phone] 03/16/2018 Pharmacy Sound Person, Pharmacy Reimbursement [address] [place], [place] [phone] 03/28/2018 Pharmacy Sound Person, Pharmacy Reimbursement [address] [place], [place] [phone] Health Maintenance Due Date Last Done Comments Zoster Vaccines HMT (1 of 2) 1992 Influenza Vaccine (FLU shot) (#1) 2018 03/12/2017, 03/12/2009, 04/24/2006, Additional history exists LUNG CANCER SCREENING YEARLY -USE SMARTSET 97270 06/23/2018 06/23/2017 DIABETES SCREEN EVERY 3 YRS- [...]
--- OUTSIDE RECORDS SUMMARY | 2023-04-08 23:26 | External Medical Summary | Summary of Care ---
Author Name Unknown Organization [place] [address] Care Team Providers Care Automotive Dismantler Name Role Phone Abram Owens MD Primary Care Provider [phone] Reason for Visit * Reason Comments Advice Encounter Details Date Type Department Care Team Description 04/25/2018 Telephone Internal Medicine [address] [address] OhsKhadijah RN [address] [place] [address] [place] [address] [phone] Advice Allergies No Known Allergiesas of this encounter [...] ([facility]) Take 1 Tab by mouth daily. 90 Tab 1 12/28/2017 Active fluticasone-salmeter ol (ADVAIR DISKUS) 250-50 MCG/DOSE inhalerIndications:S OB (shortness of breath) Inhale 1 Puff by mouth 2 times a day. 3 Disk Dosing Unit 3 01/03/2018 Active PredniSONE (DELTASONE) 10 MG TabletIndications:Se pollo chronic obstructive pulmonary disease ([facility]) One daily with food 90 Tab 1 01/04/2018 Active ondansetron (ZOFRAN) 4 MG Tablet Take 1 Tab by mouth every 6 hours as needed for Nausea. 30 Tab 0 01/04/2018 Active ipratropium (ATROVENT) 0.02 % nebulizer solutionIndications: Severe chronic obstructive pulmonary disease (HCC),Stage 3 severe COPD by GOLD classification ([facility]) Inhale 2.5 mL via nebulizer 3 times a day. 270 mL 5 02/28/2018 Active levoFLOXacin (LEVAQUIN) 500 MG TabletIndications:Ch ronic respiratory failure with hypoxia, on home O2 therapy ([facility]) Take 1 Tab by mouth daily for 10 days. until gone. 10 Tab 0 04/25/2018 8 Active PredniSONE (DELTASONE) 20 MG TabletIndications:Ch ronic respiratory failure with hypoxia, on home O2 therapy ([facility]) 2 tablets daily for 5 days then [...] Telephone Encounter - Khadijah Rehman RN - 04/25/2018 2:32 PM EST Daniel is aware. Encouraged to get started today. Khadijah Rehman RN * Telephone Encounter - Karina Salmeron PA-Leonila - 04/25/2018 2:25 PM EST meds sent to pharm. * Telephone Encounter - Khadijah Rehman RN - 04/25/2018 2:18 PM EST Daniel called and is reporting increased SOB and productive cough for thick yellow mucus. He has no transportation to come in. He has severe COPD and becomes very sick quickly. Has a history of several episodes of pneumonia. It has been pseudomonas in the past as well. Asking if an antibiotic and steroid could be ordered for him and sent to [facility]? He regularly takes Prednisone 10 mg daily. Looks like he was on Levaquin the last episode in December. Thanks, Khadijah Rehman RN in this encounter Plan of Treatment Upcoming Encounters Date Type Specialty Care Team Description 05/10/2018 Pharmacy Creative Guru, Pharmacy Reimbursement [address] [facility] [place] [address] 08/29/2018 Office Visit Internal Medicine Abram Owens MD [address] [place] [address] [place] [address] Health Maintenance Due Date Last Done Comments LUNG CANCER SCREENING YEARLY -USE SMARTSET 13729 06/23/2018 06/23/2017 DIABETES SCREEN EVERY 3 YRS- [...] hypoxia, on home O2 therapy (HCC)- Primary in this encounter Advance Directives Patient has advance care planning documents on file. For more information, please contact: [place] [address]
--- OUTSIDE RECORDS SUMMARY | 2023-04-08 23:26 | External Medical Summary | Summary of Care ---
Author Name Unknown Organization [place] [address] Phone Care Team Providers Care Field Engineer Name Role Phone Abram Owens MD Primary Care Provider [phone] Reason for Visit * Reason Comments MEDICATION QUESTION Encounter Details Date Type Department Care Team Description 03/16/2018 Pharmacy Pharmacy, [place] [address] [place], [place] [phone] Coordinator, Pharmacy [facility] [address] [place], [place] [phone] COPD, severe (HCC)* Allergies No Known Allergiesas [...] ere chronic obstructive pulmonary disease ([facility]) One daily with food 90 Tab 1 01/04/2018 Active ondansetron (ZOFRAN) 4 MG Tablet Take 1 Tab by mouth every 6 hours as needed for Nausea. 30 Tab 0 01/04/2018 Active ipratropium (ATROVENT) 0.02 % nebulizer solutionIndications:S evere chronic obstructive pulmonary disease ([facility]),Stage 3 severe COPD by GOLD classification [...] Progress Notes * Chele Gallardo, JAH - 01/03/2018 1:[address] refill: Company: [employer]-Phone number [phone] Id# [id number] Rx: Daliresp Dose:500 MCG Quantity: 90 Provider: Abram Owens MD Provider Id#[id number] Refill # 3 of 3 Next Refill Last refill, sched re-enrollment Enrollment Expires 06/06/2018 A refill order was placed for Daliresp from the [employer] program. A 90 day supply will be shipped to [address] [place] [address] and arrive in 7 to 10 business days. The next refill order is due Last refill, PRC sched re-enrollment. JAH [employer] Ordinary Seaman 03/16/2018, 8:27 AM in this encounter Plan of Treatment Upcoming Encounters Date Type Specialty Care Team Description 03/28/2018 Pharmacy Electronics Tech, Pharmacy Reimbursement [address] [facility] [place] [address] [phone] 08/29/2018 Office Visit Internal Medicine Abram Owens MD [address] [place] [address] [place] [address] Health Maintenance Due Date Last Done Comments LUNG CANCER SCREENING YEARLY -USE SMARTSET 80062 06/23/2018 06/23/2017 DIABETES SCREEN EVERY 3 YRS- [...]
--- OUTSIDE RECORDS SUMMARY | 2023-04-08 23:27 | External Medical Summary | Summary of Care ---
Author Name Unknown Organization [place] [address] Phone Care Team Providers Care Newscast Director Name Role Phone Abram Owens MD Primary Care Provider Encounter Details Date Type Department Care Team Description 12/29/2017 Orders Only Internal Medicine [address] [address] Abram Owens MD [address] [place] [address] [place] [address] [phone] Allergies No Known Allergiesas of this encounter Medications Prescription Sig. Disp. Refills Start Date End Date Status MEDICAL INSTRUCTIONSIndicati ons:Severe chronic obstructive pulmonary disease (HCC),COPD exacerbation ([facility]) Nebulizer and tubing 1 Each 1 [...] to 4LPM with ambulation/exert ion 04/28/2017 Active PredniSONE (DELTASONE) 10 MG TabletIndications:Se pollo chronic obstructive pulmonary disease (HCC) One daily with food 30 Tab 5 06/25/2017 Active fluticasone-salmeter ol (ADVAIR DISKUS) 250-50 MCG/DOSE inhalerIndications:S OB (shortness of breath) Inhale 1 Puff by mouth 2 times a day. 3 Disk Dosing Unit 1 10/14/2017 Active acetaminophen (TYLENOL) 500 MG Tablet Take [...] mouth daily. Active folic acid 1 MG TabletIndications:Ch ronic respiratory failure with hypoxia, on home O2 therapy ([facility]) Take 1 Tab by mouth daily. 90 Tab 1 12/28/2017 Active ipratropium (ATROVENT) 0.02 % nebulizer solutionIndications: Stage 3 severe COPD by GOLD classification ([facility]) Inhale 2.5 mL via nebulizer 3 times a day. 21 Box Dosing Unit 1 12/28/2017 Active levofloxacin (LEVAQUIN) 750 MG TabletIndications:x 10 days Take 750 mg by mouth daily. Indications: x 10 days 12/28/2017 01/06/2018 Active PredniSONE (DELTASONE) 50 MG TabletIndications:x 5 days then resume 10 mg daily Take 50 mg by mouth daily. 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 significant [...] Not on file as of this encounter Plan of Treatment Upcoming Encounters Date Type Specialty Care Team Description 01/03/2018 Pharmacy Phosphatic Fertilizer Supervisor, Pharmacy Reimbursement [address] [place] [address] 02/28/2018 Office Visit Internal Medicine Abram Owens MD [address] [place] [address] [place] [address] [phone] Pending Results Name Priority Associated Diagnoses Date/Ti me XR CHEST 1 VIEW Routine 12/27/2017 1 2:00 AM EDT Health Maintenance Due Date Last Done Comments Influenza Vaccine (FLU shot) (#1) 2018 03/12/2017, 03/12/2009, 04/24/2006, Additional history exists LUNG CANCER SCREENING YEARLY -USE SMARTSET 13134 06/23/2018 06/23/2017 DIABETES SCREEN EVERY 3 YRS- AGE 45 AND ABOVE 06/23/2020 06/23/2017, 06/18/2017, 05/17/2017, Additional history exists DTaP,Tdap,and Td Vaccines (2 - Td) 10/21/20272017 PNEUMOCOCCAL ADULT 65 YRS AND OVER Completed 2017, 04/27/2017 as of this encounter Implants Not on fileas of this encounter
--- OUTSIDE RECORDS SUMMARY | 2023-04-08 23:27 | External Medical Summary | Summary of Care ---
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 significant [...] Type Specialty Care Team Description 01/03/2018 Pharmacy Business Services Clerk, Pharmacy Reimbursement [address] [place] [address] 02/28/2018 Office Visit Internal Medicine Abram Owens MD [address] [place] [address] [place] [address] Health Maintenance Due Date Last Done Comments Influenza Vaccine (FLU shot) (#1) 2018 03/12/2017, 03/12/2009, 04/24/2006, Additional history exists LUNG CANCER SCREENING YEARLY -USE SMARTSET 49787 06/23/2018 06/23/2017 DIABETES SCREEN EVERY 3 YRS- AGE 45 AND ABOVE 12/27/2020 12/27/2017, 06/23/2017, 06/18/2017, Additional history exists DTaP,Tdap,and Td Vaccines (2 - Td) 10/21/20272017 PNEUMOCOCCAL ADULT 65 YRS AND OVER Completed 2017, 04/27/2017 as of this encounter Implants Not on fileas of this encounter
--- OUTSIDE RECORDS SUMMARY | 2023-04-08 23:27 | External Medical Summary | Summary of Care ---
Author Name Unknown Organization [place] [address] Phone Care Team Providers Care Risk And Insurance Consultant Name Role Phone Abram Owens MD Primary Care Provider [phone] Reason for Visit * Reason Comments RECHECK Encounter Details Date Type Department Care Team Description 12/03/2017 Office Visit Internal Medicine [address] [address] Jian Linares, DO [address] [place] [address] [phone] Severe chronic obstructive pulmonary disease (HCC)*;Chronic respiratory failure with hypoxia, on home O2 therapy (HCC);Stage 3 severe COPD by GOLD classification (HCC);Oxygen dependent Allergies No Known Allergiesas of this encounter Medications Prescription Sig. Disp. Refills Start Date End Date Status MEDICAL INSTRUCTIONSIndica tions:Severe chronic obstructive pulmonary disease (HCC),COPD exacerbation (HCC) Nebulizer and tubing 1 Each 1 03/12/2017 Active folic acid 1 MG Tablet Take 1 mg by mouth daily. 04/29/2017 Active THIAMINE (VITAMIN B-1) 100 MG Tablet [...] to 4LPM with ambulation/exer tion 04/28/2017 Active PredniSONE (DELTASONE) 10 MG TabletIndications: Severe chronic obstructive pulmonary disease (HCC) One daily with food 30 Tab 5 06/25/2017 Active fluticasone-salmet umberto (ADVAIR DISKUS) 250-50 MCG/DOSE [...] 12 11/25/2017 Active roflumilast (DALIRESP) 500 MCG TabletIndications: Severe chronic obstructive pulmonary disease (HCC) Take 1 Tab by mouth daily. 30 Tab 5 05/25/2017 8 Discontinued as of this encounter Active Problems Problem Noted Date Chronic respiratory failure with hypoxia , on home O2 therapy ([facility]) 12/03/2017 Stage 3 severe COPD by GOLD classificati on ([facility]) 11/24/2017 Oxygen dependent 11/24/2017 History of tobacco use 10/20/2017 Severe chronic obstructive pulmonary dis ease ([facility]) 10/28/2016 Overview: severe by ATS [...] Vital Sign Reading Time Taken Blood Pressure 104/62 12/03/2017 2:20 PM EDT Pulse 108 12/03/2017 2:20 PM EDT Temperature 36.8 C (98.3 F) 12/03/2017 2 :20 PM EDT Respiratory Rate - - Oxygen Saturation 97% 12/03/2017 2:2 0 PM EDT Inhaled Oxygen Concentration - - Weight 59.4 kg (131 lb) 12/03/2017 2:20 PM EDT Height - - Body Mass Index 20.18 12/03/2017 2:20 PM EDT in this encounter Progress Notes * Jian Linares DO - 12/03/2017 3:00 PM EDT Formatting of this note may be different from the original. SUBJECTIVE: Jer Bradford Jr. is a 77 year old male. Chief Complaint Patient presents with RECHECK HPI: Patient is a 77 year old male with a history of Severe COPD, Chronic Respiratory Failure, and Recent Pneumonia that is seen for follow up. Chronic shortness of breath is stable. Chronic cough is stable. Patient Active Problem List Diagnosis Code ADVANCE DIRECTIVE INFORMATION Severe chronic obstructive pulmonary disease ([facility]) J44.9 History of tobacco use Z87.891 Edentulous K00.0 Stage 3 severe COPD by GOLD classification ([facility]) J44.9 Oxygen dependent Z99.81 Chronic respiratory failure with hypoxia, on home O2 therapy ([facility]) J96.11, Z99.81 Current Outpatient Prescriptions Medication Sig Dispense Refill ipratropium (ATROVENT) 0.02 % nebulizer solution Inhale 2.5 mL via nebulizer 3 times a day. 75 mL 12 levalbuterol (XOPENEX) 1.25 MG/3ML nebulizer solution Use [...] (MULTIVITAMIN ADULTS) TABS Take by mouth daily. fluticasone-salmeterol (ADVAIR DISKUS) 250-50 MCG/DOSE inhaler Inhale 1 Puff by mouth 2 times aday. 3 Disk Dosing Unit 1 PredniSONE (DELTASONE) 10 MG Tablet One daily with food (Patient taking differently: 10 mg. Onedaily with food Indications: 1 daily after decreasing doses as directed) 30 Tab 5 albuterol (PROAIR HFA) 108 (90 BASE) MCG/ACT inhaler Inhale 2 Puffs by mouth every 4 hours as needed for Shortness of Breath or Wheezing. 1 Inhaler 5 folic acid 1 MG Tablet Take 1 mg by mouth daily. oxygen GAS Use 2 L/min(Oxygen) as directed continuous. Indications: Inc to 4LPM with ambulation/exertion THIAMINE (VITAMIN B-1) 100 MG Tablet Take 100 mg by mouth daily. MEDICAL INSTRUCTIONS Nebulizer and tubing 1 Each 1 The patient's medication list was reviewed and updated as needed. 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 [...] No Known Allergies Review of Systems Constitutional: Positive for fatigue. Negative for appetite change and unexpected weight change. Respiratory: Positive for cough and shortness of breath. Negative for wheezing. Cardiovascular: Negative for chest pain, palpitations and leg swelling. Gastrointestinal: Negative for abdominal pain, blood in stool, constipation, diarrhea, nausea and vomiting. Genitourinary: Negative for dysuria and hematuria. Neurological: Negative for dizziness and headaches. OBJECTIVE: BP 104/62 | Pulse 108 | Temp 98.3 | Wt 131 lbs (59.421kg) | BMI 20.18 kg/m | BSA 1.68 m | SaO2 97[on 2 liters[% Physical Exam Constitutional: He is oriented to person, place, and time. He appears well- developed and well-nourished. HENT: Head: Normocephalic and atraumatic. Neck: Carotid bruit is not present. Cardiovascular: Normal rate, regular rhythm and normal heart sounds. Exam reveals no gallop. No murmur heard. Pulmonary/Chest: Effort normal and breath sounds normal. He has no wheezes. He has no rales. Abdominal: Soft. Bowel sounds are normal. He exhibits no distension. There is no tenderness. Musculoskeletal: He exhibits no edema. Lymphadenopathy: He has no cervical adenopathy. Neurological: He is alert and oriented to person, place, and time. Psychiatric: He has a normal mood and affect. His behavior is normal. Nursing note and vitals reviewed. PLAN AND ASSESSMENT: J44.9 Severe chronic obstructive pulmonary disease (hcc) (primary encounter diagnosis) Patient is stable Continue current medications Continue to follow with Pulmonary J96.11, Z99.81 Chronic respiratory failure with hypoxia, on home o2 therapy ([facility]) J44.9 Stage 3 severe copd by gold classification ([facility]) Z99.81 Oxygen dependent Jian Linares DO 3:00 PM 12/03/2017 in this encounter Nursing Notes * Shantelle Jacobo RN - 12/03/2017 2:21 PM EDT Increased shortness or breath for the past week. Expectorates green mucous. Just completed an antibiotic. in this encounter Plan of Treatment Upcoming Encounters Date Type Specialty Care Team Description 12/27/2017 Pharmacy Chief Crew Scheduler, Pharmacy Reimbursement [address] [place] [address] 01/03/2018 Pharmacy Chief Crew Scheduler, Pharmacy Reimbursement [address] [place] [address] 02/28/2018 Office Visit Internal Medicine Abram Owens MD [address] [place] [address] [place] [address] Health Maintenance Due Date Last Done Comments LIPID SCREEN EVERY 5 YRS-MEN AGE 35-75 02/16/2013 02/17/2008 LUNG CANCER SCREENING YEARLY -USE SMARTSET 27211 06/23/2018 06/23/2017 DIABETES SCREEN EVERY 3 YRS- AGE 45 AND ABOVE 06/23/2020 06/23/2017, 06/18/2017, 05/17/2017, Additional history exists DTaP,Tdap,and Td Vaccines (2 - Td) 10/21/20272017 Influenza Vaccine (FLU shot) Completed 11/2016, 03/12/2009, 04/24/2006, Additional history exists PNEUMOCOCCAL ADULT 65 YRS AND OVER Completed [...] dependent Dependence on supplemental oxygen in this encounter"
--- OUTSIDE RECORDS SUMMARY | 2023-04-08 23:27 | External Medical Summary | Summary of Care ---
Author Name Unknown Organization [place] [address] Phone Care Team Providers Care Ostomy Nurse Name Role Phone Abram Owens MD Primary Care Provider Encounter Details Date Type Department Care Team Description 12/17/2017 Coat AgentMedical Malpractice Paralegal Medicine [address] [address] OhsKhadijah RN [address] [place] [address] [place] [address] [phone] SOB (shortness of breath)*;Severe chronic obstructive pulmonary disease (HCC) Allergies No [...] to 4LPM with ambulation/exerti on 04/28/2017 Active PredniSONE (DELTASONE) 10 MG TabletIndications:S clarisa chronic obstructive pulmonary disease ([facility]) One daily with food 30 Tab 5 06/25/2017 Active fluticasone-salmete rol (ADVAIR DISKUS) 250-50 MCG/DOSE [...] Take 500 mcg by mouth daily. Active as of this encounter Active Problems Problem Noted Date Chronic respiratory failure with hypoxia , on home O2 therapy ([facility]) 12/03/2017 Stage 3 severe COPD by GOLD classificati on ([facility]) 11/24/2017 Oxygen dependent 11/24/2017 History of tobacco use 10/20/2017 Severe chronic obstructive pulmonary dis ease ([facility]) 10/28/2016 Overview: severe by ATS criteria. significant response after bronchodilator ADVANCE DIRECTIVE INFORMATION 02/01/2008 Overview: No, Advance Directive brochure given to patient. Edentulous as of this encounter Resolved Problems Problem Noted Date Resolved Date Pneumonia 06/13/2017 10/27/2017 Overview: left basal infiltrate COPD exacerbation ([facility]) 10/16/2016 05/03/20 17 Inflammation of sacroiliac joint ([facility]) 5 03/12/2017 Other abnormal glucose [...] Progress Notes * Khadijah Rehman RN - 12/17/2017 2:53 PM EDT Week 4 [facility]MA for hospital stay for COPD exacerbation followed by [facility] for pulm and physical rehab. Daniel says he stays in the air conditioning when it is hot and humid. Suggested going outside in am or evening when it is cooler just to get out of the house. He tells me he does go out when it cools down. He continues to cough frequently although mucus is now clear. Using the nebulizer and inhalers as directed. Keeping [address] most all of the time. He had a bad day yesterday as he went out to fill the bird feeder and his 02 tubing wasn't long enough so he took his 02 off and was sorry after as he really got SOB and took a while for him to recover. advised asking [facility] for extension tubing and he replied "I have some". He will see pulmonary Dr Gill on 12-29-17. Encouraged to call me if he notices his breathing is worse, increased cough, yellow or green mucus etc. We can get him in to be seen. He agrees. CM will f/u in 1-2 months or sooner if needed. Khadijah Rehman RN in this encounter Plan of Treatment Upcoming Encounters Date Type Specialty Care Team Description 12/27/2017 Pharmacy Machine Tank Operator, Pharmacy Reimbursement [address] [place] [address] [phone] 01/03/2018 Pharmacy Machine Tank Operator, Pharmacy Reimbursement [address] [place] [address] 02/28/2018 Office Visit Internal Medicine Abram Owens MD [address] [place] [address] [place] [address] Health Maintenance Due Date Last Done Comments LIPID SCREEN EVERY 5 YRS-MEN AGE 35-75 02/16/2013 02/17/2008 Influenza Vaccine (FLU shot) (#1) 2018 03/12/2017, 03/12/2009, 04/24/2006, Additional history exists LUNG CANCER SCREENING YEARLY -USE SMARTSET 07688 06/23/2018 06/23/2017 DIABETES SCREEN EVERY 3 YRS- AGE 45 AND ABOVE 06/23/2020 06/23/2017, 06/18/2017, 05/17/2017, Additional history exists DTaP,Tdap,and Td Vaccines (2 - Td) 10/21/20272017 PNEUMOCOCCAL ADULT 65 YRS AND OVER Completed 2017, 04/27/2017 as of this encounter Implants Not on fileas of this encounter Visit Diagnoses Diagnosis SOB (shortness of breath) - Primary Shortness of breath Severe chronic obstructive p ulmonary disease (HCC) Chronic airway obstruction, not elsewhere classified in this encounter
--- OUTSIDE RECORDS SUMMARY | 2023-04-08 23:27 | External Medical Summary | Summary of Care ---
Author Name Unknown Organization [place] [address] Phone Care Team Providers Care Street Light Mechanic Name Role Phone Abram Owens MD Primary Care Provider Encounter Details Date Type Department Care Team Description 12/06/2017 Full Service SupervisorMaterial Loader Medicine [address] [address] OhsKhadijah RN [address] [place] [address] [place] [address] [phone] SOB (shortness of breath)*;Chronic respiratory failure with hypoxia, on home O2 therapy (HCC);Chronic obstructive pulmonary disease with acute lower respiratory infection ([facility]) Allergies No Known Allergiesas of this encounter Medications Prescription Sig. Disp. Refills Start Date End Date Status MEDICAL INSTRUCTIONSIndicat ions:Severe chronic obstructive pulmonary disease (HCC),COPD exacerbation ([facility]) Nebulizer and tubing 1 Each [...] MG TabletIndications:S clarisa chronic obstructive pulmonary disease (HCC) One daily [...] with hypoxia , on home O2 therapy ([facility]) 12/03/2017 Stage 3 severe COPD by GOLD classificati on ([facility]) 11/24/2017 Oxygen dependent 11/24/2017 History of tobacco use 10/20/2017 Severe chronic obstructive pulmonary dis ease ([facility]) 10/28/2016 Overview: severe by ATS criteria. significant response after bronchodilator ADVANCE DIRECTIVE INFORMATION 02/01/2008 Overview: No, Advance Directive brochure given to patient. Edentulous as of this encounter Resolved Problems Problem Noted Date Resolved Date Pneumonia 06/13/2017 10/27/2017 Overview: left basal infiltrate COPD exacerbation ([facility]) 10/16/2016 05/03/20 17 Inflammation of sacroiliac joint ([facility]) 5 03/12/2017 Other abnormal glucose [...] Progress Notes * Khadijah Rehman RN - 12/06/2017 2:48 PM EDT Week 3 [facility]MA for hospital stay for COPD exacerbation followed by stay at [facility] for pulmonary and physical rehab. Daniel was in and saw Dr Linares on Wednesday for a recheck before the weekend due to c/o chest tightness,SOB and continued cough. He reports that he feels better today. He did get his nebulizer medicines from [employer] when he was in town on Wednesday. Using the Levalbuterol and Ipratropium as directed. Still with productive cough at times for pina to white mucus. Using his 02 at all times as well. Hehas been staying in his home in the air conditioner during this heat and humidity. He is eating well and sleeping well. Feels his chest isn't as tight as it was the other day. He will be seeing Dr Gill on 12-29-17 [facility] pulmonary. Encouraged to call me if his breathing changes at all. Stay in the cool in the air conditioner. CM will f/u again next week. Khadijah Rehman RN in this encounter Plan of Treatment Upcoming Encounters Date Type Specialty Care Team Description 12/27/2017 Pharmacy Hoister, Pharmacy Reimbursement [address] [place] [address] 01/03/2018 Pharmacy Hoister, Pharmacy Reimbursement [address] [place] [address] 02/28/2018 Office Visit Internal Medicine Abram Owens MD [address] [place] [address] [place] [address] Health Maintenance Due Date Last Done Comments LIPID SCREEN EVERY 5 YRS-MEN AGE 35-75 02/16/2013 02/17/2008 Influenza Vaccine (FLU shot) (#1) 2018 03/12/2017, 03/12/2009, 04/24/2006, Additional history exists LUNG CANCER SCREENING YEARLY -USE SMARTSET 88702 06/23/2018 06/23/2017 DIABETES SCREEN EVERY 3 YRS- AGE 45 AND ABOVE 06/23/2020 06/23/2017, 06/18/2017, 05/17/2017, Additional history exists DTaP,Tdap,and Td Vaccines (2 - Td) 10/21/20272017 PNEUMOCOCCAL ADULT 65 YRS AND OVER Completed 2017, 04/27/2017 as of this encounter Implants Not on fileas of this encounter Visit Diagnoses Diagnosis SOB (shortness of breath) - Primary Shortness of breath Chronic respiratory failure with hypoxia, on home O2 therapy (HCC) Chronic obstructive pulmonar y disease with acute lower respiratory infection (HCC) Obstructive chronic bronchitis with exacerbation in this encounter
--- OUTSIDE RECORDS SUMMARY | 2023-04-08 23:27 | External Medical Summary | Summary of Care ---
Author Name Unknown Organization [place] [address] Phone Care Team Providers Care Facility Security Officer Name Role Phone Abram Owens MD Primary Care Provider Reason for Visit * Reason Comments MEDICATION REFILL Encounter Details Date Type Department Care Team Description 01/04/2018 Refill Internal Medicine [address] [address] OhsKhadijah RN [address] [place] [address] [phone] Severe chronic obstructive pulmonary disease (HCC) Allergies [...] 12/28/2017 Active ipratropium (ATROVENT) 0.02 % nebulizer solutionIndications :Stage 3 severe COPD by GOLD classification ([facility] [...] with food 90 Tab 1 01/04/2018 Active PredniSONE (DELTASONE) 10 MG TabletIndications:S evere chronic obstructive pulmonary disease ([facility]) One daily with food 30 Tab 5 06/25/2017 01/05/20 18 Discontinued as of this encounter Active Problems Problem Noted Date Chronic respiratory failure with hypoxia , on home O2 therapy ([facility]) 12/03/2017 Stage 3 severe COPD by GOLD classificati on ([facility]) 11/24/2017 Oxygen dependent 11/24/2017 History of tobacco use 10/20/2017 Severe chronic obstructive pulmonary dis ease ([facility]) 10/28/2016 Overview: severe by ATS criteria. significant response after bronchodilator ADVANCE DIRECTIVE INFORMATION 02/01/2008 Overview: No, Advance Directive brochure given to patient. Edentulous as of this encounter Resolved Problems Problem Noted Date Resolved Date Pneumonia 06/13/2017 10/27/2017 Overview: left basal infiltrate COPD exacerbation ([facility]) 10/16/2016 05/03/20 17 Inflammation of sacroiliac joint ([facility]) 5 03/12/2017 Other abnormal glucose 04/23/2005 7 [...] encounter Miscellaneous Notes * Telephone Encounter - Harry Low MD - 01/04/2018 3:47 PM EDT Signed Prescriptions: Disp Refills PredniSONE (DELTASONE) 10 MG Tablet 90 Tab 1 Sig: One daily with food Authorizing Provider: HARRY LOW * Telephone Encounter - Khadijah Rehman RN - 01/04/2018 3:28 PM EDT Daniel needs a refill for his daily 10 mg of Prednisone. Thanks, Khadijah Rehman, RN in this encounter Plan of Treatment Upcoming Encounters Date Type Specialty Care Team Description 01/14/2018 Pharmacy Metal Door Assembler, Pharmacy Reimbursement [address] [facility] [place] [id number] 02/28/2018 Office Visit Internal Medicine Abram Owens MD [address] [place] [address] [place] [address] 03/16/2018 Pharmacy Metal Door Assembler, Pharmacy Reimbursement [address] [facility] [place] [id number] Health Maintenance Due Date Last Done Comments Influenza Vaccine (FLU shot) (#1) 2018 03/12/2017, 03/12/2009, 04/24/2006, Additional history exists LUNG CANCER SCREENING YEARLY -USE SMARTSET 43132 06/23/2018 06/23/2017 DIABETES SCREEN EVERY 3 YRS- [...]
--- OUTSIDE RECORDS SUMMARY | 2023-04-08 23:27 | External Medical Summary | Summary of Care ---
Author Name Unknown Organization [place] [address] Phone Care Team Providers Care Fiberglass Technician Name Role Phone Abram Owens MD Primary Care Provider [phone] Encounter Details Date Type Department Care Team Description 12/27/2017 Scan Encounter Unspecified Department <No scans attached> [...] 04/28/2017 Active PredniSONE (DELTASONE) 10 MG TabletIndications:S evere [...] with hypoxia , on home O2 therapy ([facility]) 12/03/2017 Stage 3 severe COPD by GOLD classificati on ([facility]) 11/24/2017 Oxygen dependent 11/24/2017 History of tobacco use 10/20/2017 Severe chronic obstructive pulmonary dis ease ([facility]) 10/28/2016 Overview: severe by ATS criteria. significant response after bronchodilator ADVANCE DIRECTIVE INFORMATION 02/01/2008 Overview: No, Advance Directive brochure given to patient. Edentulous as of this encounter Resolved Problems Problem Noted Date Resolved Date Pneumonia 06/13/2017 10/27/2017 Overview: left basal infiltrate COPD exacerbation ([facility]) 10/16/2016 05/03/20 17 Inflammation of sacroiliac joint ([facility]) 5 03/12/2017 Other abnormal glucose 04/23/2005 7 [...] Type Specialty Care Team Description 01/03/2018 Pharmacy Cloth Printing Inspector, [facility] [address] [facility] [id number] 02/28/2018 Office Visit Internal Medicine Abram Owens MD [address] [place] [address] [place] [address] Health Maintenance Due Date Last Done Comments Influenza Vaccine (FLU shot) (#1) 2018 03/12/2017, 03/12/2009, 04/24/2006, Additional history exists LUNG CANCER SCREENING YEARLY -USE SMARTSET 96290 06/23/2018 06/23/2017 DIABETES SCREEN EVERY 3 YRS- AGE 45 AND ABOVE 06/23/2020 06/23/2017, 06/18/2017, 05/17/2017, Additional history exists DTaP,Tdap,and Td Vaccines (2 - Td) 10/21/20272017 PNEUMOCOCCAL ADULT 65 YRS AND OVER Completed 2017, 04/27/2017 as of this encounter Implants Not on fileas of this encounter
--- OUTSIDE RECORDS SUMMARY | 2023-04-08 23:27 | External Medical Summary | Summary of Care ---
Author Name Unknown Organization [place] [address] Phone Care Team Providers Care Paper Core Machine Operator Name Role Phone Abram Owens MD Primary Care Provider Reason for Visit * Reason Comments MED REQUEST Encounter Details Date Type Department Care Team Description 12/28/2017 Telephone Internal Medicine [address] [address] OhsKhadijah RN [address] [place] [address] [phone] MED REQUEST Allergies No Known Allergiesas of this encounter Medications Prescription Sig. Disp. Refills Start Date End Date Status MEDICAL INSTRUCTIONSIndicat ions:Severe chronic obstructive pulmonary disease (HCC),COPD exacerbation ([facility]) Nebulizer and tubing 1 Each [...] tion 04/28/2017 Active PredniSONE (DELTASONE) 10 MG TabletIndications:S [...] 21 Box Dosing Unit 1 12/28/2017 Active folic acid 1 MG Tablet Take 1 mg by mouth daily. 04/29/2017 12/29/19 18 Discontinued as of this encounter Active Problems Problem Noted Date Chronic respiratory failure with hypoxia , on home O2 therapy ([facility]) 12/03/2017 Stage 3 severe COPD by GOLD classificati on ([facility]) 11/24/2017 Oxygen dependent 11/24/2017 History of tobacco use 10/20/2017 Severe chronic obstructive pulmonary dis ease ([facility]) 10/28/2016 Overview: severe by ATS [...] Telephone Encounter - Khadijah Rehman RN - 12/28/2017 3:39 PM EDT Daniel is aware. Thanks, Khadijah Rehman RN * Telephone Encounter - Abram Owens MD - 12/28/2017 3:19 PM EDT ok * Telephone Encounter - Khadijah Rehman RN - 12/28/2017 3:02 PM EDT Daniel is almost out of his Ipratropium. [facility] will [facility] on Wednesday01/03/18 so he will need 7 days sent to [facility] in [place]. He is using 3 x daily. Will need 21 vials until [facility] order is delivered. Thanks, Khadijah Rehman RN in this encounter Plan of Treatment Upcoming Encounters Date Type Specialty Care Team Description 01/03/2018 Pharmacy Noodle Catalyst Maker, Pharmacy Reimbursement [address] [facility] [place] [address] [phone] 02/28/2018 Office Visit Internal Medicine Abram Owens MD [address] [place] [address] [place] [address] Health Maintenance Due Date Last Done Comments Influenza Vaccine (FLU shot) (#1) 2018 03/12/2017, 03/12/2009, 04/24/2006, Additional history exists LUNG CANCER SCREENING YEARLY -USE SMARTSET 69581 06/23/2018 06/23/2017 DIABETES SCREEN EVERY 3 YRS- AGE 45 AND ABOVE 06/23/2020 06/23/2017, 06/18/2017, 05/17/2017, Additional history exists DTaP,Tdap,and Td Vaccines (2 - Td) 10/21/20272017 PNEUMOCOCCAL ADULT 65 YRS AND OVER Completed 2017, 04/27/2017 as of this encounter Implants Not on fileas of this encounter Visit Diagnoses Diagnosis Stage 3 severe COPD by GOLD classification (HCC) - Primary in this encounter
--- OUTSIDE RECORDS SUMMARY | 2023-04-08 23:27 | External Medical Summary | Summary of Care ---
Author Name Unknown Organization [place] [address] Phone Care Team Providers Care Pretzel Cooker Name Role Phone Abram Owens MD Primary Care Provider Reason for Visit * Reason Comments MEDICATION QUESTION Encounter Details Date Type Department Care Team Description 01/03/2018 Pharmacy Pharmacy, [place] [address], [place] [id number] Coordinator, Pharmacy [facility] [address], [place] [id number] COPD, severe (HCC)* Allergies No Known Allergiesas [...] Stage 3 severe COPD by GOLD classification ([facility]) Inhale 2.5 mL via nebulizer 3 times a day. 21 Box Dosing Unit 1 12/28/2017 Active levofloxacin (LEVAQUIN) 750 MG TabletIndications:x 10 days Take 750 mg by mouth daily. Indications: x 10 days 12/28/2017 01/06/2018 Active as of this encounter Active Problems Problem Noted Date Chronic respiratory failure with hypoxia , on home O2 therapy ([facility]) 12/03/2017 Stage 3 severe COPD by GOLD classificati on ([facility]) 11/24/2017 Oxygen dependent 11/24/2017 History of tobacco use 10/20/2017 Severe chronic obstructive pulmonary dis ease ([facility]) 10/28/2016 Overview: severe by [...] Progress Notes * Chele Gallardo OSA - 10/20/2017 9:[address] refill: Company: [employer] [place]-Phone number [phone] Id# [id number] Rx: Daliresp Dose:500 MCG Quantity: 90 Provider: Abram Owens MD Provider Id#[id number] Refill # 2 of 3 Next Refill 03/14/2018 Enrollment Expires 06/06/2018 JAH [employer] Switchboard Operator Helper 10/20/2017 9:14 AM A refill order was placed for Daliresp from the [employer] program. A 90 day supply will be shipped to [address] [place] [address] and arrive in 7 to 10 business days. The next refill order is due 03/16/2018. A refill order was placed for Proair HFA from the [employer] program. A 90 day supply will be shipped to [address] [place] [address] and arrive in 7 to 10 business days. The next refill order is due 03/16/2018. JAH [employer] Switchboard Operator Helper 01/03/2018, 12:43 PM in this encounter Plan of Treatment Upcoming Encounters Date Type Specialty Care Team Description 01/14/2018 Pharmacy Watch Inspector, Pharmacy Reimbursement [address] [facility] [place] [address] 02/28/2018 Office Visit Internal Medicine Abram Owens MD [address] [place] [address] [place] [address] Health Maintenance Due Date Last Done Comments Influenza Vaccine (FLU shot) (#1) 2018 03/12/2017, 03/12/2009, 04/24/2006, Additional history exists LUNG CANCER SCREENING YEARLY -USE SMARTSET 47782 06/23/2018 06/23/2017 DIABETES SCREEN EVERY 3 YRS- [...]
--- OUTSIDE RECORDS SUMMARY | 2023-04-08 23:27 | External Medical Summary | Summary of Care ---
Author Name Unknown Organization [place] [address] Phone Care Team Providers Care Scheduling Analyst Name Role Phone Abram Owens MD Primary Care Provider [phone] Encounter Details Date Type Department Care Team Description 01/04/2018 Civil CelebrantJourneyman Wireman Medicine [address] [address] OhsKhadijah RN [address] [place] [address] [place] [address] [phone] COPD exacerbation (HCC)*;Severe chronic obstructive pulmonary disease (HCC);Oxygen dependent Allergies No Known Allergiesas of [...] failure with hypoxia, on home O2 therapy ([facility]) Take 1 Tab by mouth daily. 90 [...] 01/03/2018 Active PredniSONE (DELTASONE) 10 MG TabletIndications:S clarisa chronic obstructive pulmonary disease ([facility]) One daily with food 90 Tab 1 01/04/2018 Active ondansetron (ZOFRAN) 4 MG Tablet Take 1 Tab by mouth every 6 hours as needed for Nausea. 30 Tab 0 01/04/2018 Active PredniSONE (DELTASONE) 10 MG TabletIndications:S clarisa chronic obstructive pulmonary disease (HCC) One daily with food 30 Tab 5 06/25/2017 01/05/20 18 Discontinued ipratropium (ATROVENT) 0.02 % nebulizer solutionIndications :Stage 3 severe COPD by GOLD classification ([facility]) Inhale 2.5 mL via nebulizer 3 times a day. 21 Box Dosing Unit 1 12/28/2017 01/05/20 18 Discontinued as of this encounter Active Problems Problem Noted Date Chronic respiratory failure with hypoxia , on home O2 therapy ([facility]) 12/03/2017 Stage 3 severe COPD by GOLD classificati on ([facility]) 11/24/2017 Oxygen dependent 11/24/2017 History of tobacco use 10/20/2017 Severe chronic obstructive pulmonary dis ease ([facility]) 10/28/2016 Overview: severe by ATS criteria. significant response after bronchodilator ADVANCE DIRECTIVE INFORMATION 02/01/2008 Overview: No, Advance Directive brochure given to patient. Edentulous as of this encounter Resolved Problems Problem Noted Date Resolved Date Pneumonia 06/13/2017 10/27/2017 Overview: left basal infiltrate COPD exacerbation ([facility]) 10/16/2016 05/03/20 17 Inflammation of sacroiliac joint ([facility]) 5 03/12/2017 Other abnormal glucose 04/23/2005 7 [...] Progress Notes * Khadijah Rehman RN - 01/04/2018 4:24 PM EDT CM progress to f/u from ER visit for COPD exacerbation. Still has a couple more Levaquin. Should be done 01/06/18. He finished the Prednisone 50 mg tabs. He is reporting nausea x 2-3 days. No vomiting or diarrhea just the nausea. Hard to eat. He is taking sips of liquids. CM encouraged using sips of Fabiola Sena, water or cola. Also advised some dry toast, puddings, or any bland soft food. May be better to eat small amounts frequently. Maybe the higher dose of Prednisone? He suggested using Pepto-bismol but wasn't aware of Aspirin in the Pepto. CM suggested TUMS as needed. Message to Dr Owens for advice. Dr Maranda guzmán and she sent Zofran to [facility]. Daniel is aware. Advised if not any better to call me and we can get him in to be seen. CM will f/u in a few days to 1 week. Khadijah Rehman RN in this encounter Plan of Treatment Upcoming Encounters Date Type Specialty Care Team Description 01/14/2018 Pharmacy Laborer Airport Maintenance, Pharmacy Reimbursement [address] [place] [address] 02/28/2018 Office Visit Internal Medicine Abram Owens MD [address] [place] [address] [place] [address] 03/16/2018 Pharmacy Laborer Airport Maintenance, Pharmacy Reimbursement [address] [place] [address] Health Maintenance Due Date Last Done Comments Influenza Vaccine (FLU shot) (#1) 2018 03/12/2017, 03/12/2009, 04/24/2006, Additional history exists LUNG CANCER SCREENING YEARLY -USE SMARTSET 42887 06/23/2018 06/23/2017 DIABETES SCREEN EVERY 3 YRS- AGE 45 AND ABOVE 12/27/2020 12/27/2017, 06/23/2017, 06/18/2017, Additional history exists DTaP,Tdap,and Td Vaccines (2 - Td) 10/21/20272017 PNEUMOCOCCAL ADULT 65 YRS AND OVER Completed 2017, 04/27/2017 as of this encounter Implants Not on fileas of this encounter Visit Diagnoses Diagnosis COPD exacerbation (HCC) - Pr imary Obstructive chronic bronchitis with exacerbation Severe chronic obstructive p ulmonary disease (HCC) Chronic airway obstruction, not elsewhere classified Oxygen dependent Dependence on supplemental oxygen in this encounter
--- OUTSIDE RECORDS SUMMARY | 2023-04-08 23:27 | External Medical Summary | Summary of Care ---
Author Name Unknown Organization [place] [address] Phone Care Team Providers Care Transmitter Engineer Name Role Phone Abram Owens MD Primary Care Provider Reason for Visit * Reason Comments FYI Encounter Details Date Type Department Care Team Description 12/27/2017 Telephone Internal Medicine [address] [address] OhsKhadijah RN [address] [place] [address] [phone] FYI Allergies No Known Allergiesas of this encounter [...] Telephone Encounter - Khadijah Rehman RN - 12/27/2017 12:33 PM EDT Daniel's called to let us know that she called 911 and Daniel is on his way to [facility] for increased SOB. Just FYI Khadijah Rehman RN in this encounter Plan of Treatment Upcoming Encounters Date Type Specialty Care Team Description 01/03/2018 Pharmacy Talent Acquisition Assistant, Pharmacy Reimbursement [address] [facility] [place] [address] [phone] 02/28/2018 Office Visit Internal Medicine Abram Owens MD [address] [place] [address] [place] [address] Health Maintenance Due Date Last Done Comments Influenza Vaccine (FLU shot) (#1) 2018 03/12/2017, 03/12/2009, 04/24/2006, Additional history exists LUNG CANCER SCREENING YEARLY -USE SMARTSET 75186 06/23/2018 06/23/2017 DIABETES SCREEN EVERY 3 YRS- AGE 45 AND ABOVE 06/23/2020 06/23/2017, 06/18/2017, 05/17/2017, Additional history exists DTaP,Tdap,and Td Vaccines (2 - Td) 10/21/20272017 PNEUMOCOCCAL ADULT 65 YRS AND OVER Completed 2017, 04/27/2017 as of this encounter Implants Not on fileas of this encounter
--- OUTSIDE RECORDS SUMMARY | 2023-04-08 23:27 | External Medical Summary | Summary of Care ---
Author Name Unknown Organization [place] [address] Phone Care Team Providers Care Sueding And Buffing Machine Operator Name Role Phone Abram Owens MD Primary Care Provider [phone] Reason for Visit * Reason Comments MEDICATION REFILL Encounter Details Date Type Department Care Team Description 12/28/2017 Refill Internal Medicine [address] [address] OhsKhadijah RN [address] [place] [address] [phone] Chronic respiratory failure with hypoxia, on home O2 therapy (HCC)* Allergies No Known Allergiesas of this encounter Medications Prescription Sig. Disp. Refills Start Date End Date Status MEDICAL INSTRUCTIONSIndica tions:Severe chronic obstructive pulmonary disease (HCC),COPD exacerbation ([facility]) Nebulizer and tubing 1 Each [...] mouth daily. Active folic acid 1 MG TabletIndications: Chronic respiratory failure with hypoxia, on home O2 therapy ([facility]) Take 1 Tab by mouth daily. 90 Tab 1 12/28/2017 Active folic acid 1 MG Tablet Take 1 mg by mouth daily. 04/29/2017 8 Discontinued as of this encounter Active Problems Problem Noted Date Chronic respiratory failure with hypoxia , on home O2 therapy ([facility]) 12/03/2017 Stage 3 severe COPD by GOLD classificati on ([facility]) 11/24/2017 Oxygen dependent 11/24/2017 History of tobacco use 10/20/2017 Severe chronic obstructive pulmonary dis ease ([facility]) 10/28/2016 Overview: severe by ATS criteria. significant response after bronchodilator ADVANCE DIRECTIVE INFORMATION 02/01/2008 Overview: No, Advance Directive brochure given to patient. Edentulous as of this encounter Resolved Problems Problem Noted Date Resolved Date Pneumonia 06/13/2017 10/27/2017 Overview: left basal infiltrate COPD exacerbation ([facility]) 10/16/2016 05/03/20 17 Inflammation of sacroiliac joint ([facility]) 5 03/12/2017 Other abnormal glucose [...] Encounter - Khadijah Rehman RN - 12/28/2017 2:51 PM EDT Daniel needs his Folic acid refilled. He is seeing Dr Gill tomorrow for ER f/u for COPD. Does he need to see you as well? Thanks, hKadijah Rehman, RN in this encounter Plan of Treatment Upcoming Encounters Date Type Specialty Care Team Description 01/03/2018 Pharmacy Senior Production Planner, Pharmacy Reimbursement [address] [place] [address] [phone] 02/28/2018 Office Visit Internal Medicine Abram Owens MD [address] [place] [address] [place] [address] Health Maintenance Due Date Last Done Comments Influenza Vaccine (FLU shot) (#1) 2018 03/12/2017, 03/12/2009, 04/24/2006, Additional history exists LUNG CANCER SCREENING YEARLY -USE SMARTSET 75511 06/23/2018 06/23/2017 DIABETES SCREEN EVERY 3 YRS- AGE 45 AND ABOVE 06/23/2020 06/23/2017, 06/18/2017, 05/17/2017, Additional history exists DTaP,Tdap,and Td Vaccines (2 - Td) 10/21/20272017 PNEUMOCOCCAL ADULT 65 YRS AND OVER Completed 2017, 04/27/2017 as of this encounter Implants Not on fileas of this encounter Visit Diagnoses Diagnosis Chronic respiratory failure with hypoxia, on home O2 therapy (HCC) - Primary in this encounter
--- OUTSIDE RECORDS SUMMARY | 2023-04-08 23:27 | External Medical Summary | Summary of Care ---
Author Name Unknown Organization [place] [address] Phone Care Team Providers Care Saw Filer Name Role Phone Abram Owens MD Primary Care Provider [phone] Encounter Details Date Type Department Care Team Description 12/28/2017 Product Development WorkerPutty Tinter Maker Medicine [address] [address] OhsKhadijah RN [address] [place] [address] [place] [phone] COPD exacerbation (HCC)*;Chronic respiratory failure with hypoxia, on home O2 therapy (HCC);Chronic obstructive pulmonary disease with acute lower respiratory infection ([facility]) Allergies No Known Allergiesas of [...] :Stage 3 severe COPD by GOLD classification ([facility]) Inhale 2.5 mL via nebulizer 3 times a day. 21 Box Dosing Unit 1 12/28/2017 Active levofloxacin (LEVAQUIN) 750 MG TabletIndications:x 10 days Take 750 mg by mouth daily. Indications: x 10 days 12/28/2017 01/07/20 18 Active PredniSONE (DELTASONE) 50 MG TabletIndications:x 5 days then resume 10 mg daily Take 50 mg by mouth daily. Indications: x 5 days then resume 10 mg daily 12/28/2017 01/02/20 18 Active folic acid 1 MG Tablet Take [...] COPD exacerbation ([facility]) 10/16/2016 05/03/20 Inflammation of sacroiliac joint ([facility]) [...] Progress Notes * Khadijah Rehman RN - 12/28/2017 3:27 PM EDT ER f/u. Was seen at [facility] 12-27-17 due to progressive increase in SOB over the prior days. The humidity is very hard on him. He does have an air conditioner and stays indoors. He woke up yesterday morning with increased SOB, wheezing and cough. His called 911 after he used his Albuterol inhaler with no decrease in SOB. He was diagnosed with COPD exacerbation and givenLevaquin in the ER as well as nebulizer treatment which helped his breathing. His 02 sat on 2 LPM of 02 was 84% which improved after the breathing treatment. He was discharged home on Levaquin and Prednisone 50mg x 5 days. He will be seeing Dr Gill [facility] [place]. He needs his Folic acid refilled. He is almost out of his Ipratropium. He only has 3 vials left. His nebulizer medicine comes from [facility] in [place]. GLADIS spoke with Shana at [facility] and informed her that he needs refills for the Levalbuterol and Ipratropium. Informed Daniel that when he is down to about 1 week remaining that he needs to call [facility] and ask for a refill. They deliver to [facility] in [place] every Wednesday. Dr Ownes sent a refill for 7 days to [facility]. Daniel is aware. I will f/u in about 1 week. Khadijah Rehman RN [facility] [phone] in this encounter Plan of Treatment Upcoming Encounters Date Type Specialty Care Team Description 01/03/2018 Pharmacy Solar Maintenance Technician, Pharmacy Reimbursement [address] [facility] [place] [address] [phone] 02/28/2018 Office Visit Internal Medicine Abram Owens MD [address] [place] [address] [place] [address] Health Maintenance Due Date Last Done Comments Influenza Vaccine (FLU shot) (#1) 2018 03/12/2017, 03/12/2009, 04/24/2006, Additional history exists LUNG CANCER SCREENING YEARLY -USE SMARTSET 53047 06/23/2018 06/23/2017 DIABETES SCREEN EVERY 3 YRS- AGE 45 AND ABOVE 06/23/2020 06/23/2017, 06/18/2017, 05/17/2017, Additional history exists DTaP,Tdap,and Td Vaccines (2 - Td) 10/21/20272017 PNEUMOCOCCAL ADULT 65 YRS AND OVER Completed 2017, 04/27/2017 as of this encounter Implants Not on fileas of this encounter Visit Diagnoses Diagnosis COPD exacerbation (HCC) - Pr imary Obstructive chronic bronchitis with exacerbation Chronic respiratory failure with hypoxia, on home O2 therapy (HCC) Chronic obstructive pulmonar y disease with acute lower respiratory infection (HCC) Obstructive chronic bronchitis with exacerbation in this encounter
--- OUTSIDE RECORDS SUMMARY | 2023-04-08 23:27 | External Medical Summary | Summary of Care ---
Author Name Unknown Organization [place] [address] Phone Care Team Providers Care Delivery Assistant Name Role Phone Abram Owens MD Primary Care Provider [phone] Encounter Details Date Type Department Care Team Description 12/29/2017 Orders Only Internal Medicine [address] [address] Abram Owens MD [address] [place] [address] [place] [address] [phone] Allergies No Known Allergiesas of this encounter Medications Prescription Sig. Disp. Refills Start Date End Date Status MEDICAL INSTRUCTIONSIndicati ons:Severe chronic obstructive pulmonary disease (HCC),COPD exacerbation ([facility]) Nebulizer and tubing 1 Each 1 03/12/2017 [...] [facility] Take 1 Tab by mouth daily. [...] , on home O2 therapy ([facility]) 12/03/2017 Stage 3 severe COPD by GOLD classificati on ([facility]) 11/24/2017 Oxygen dependent 11/24/2017 History of [...] Specialty Care Team Description 01/03/2018 Pharmacy Senior Internal Auditor, Pharmacy Reimbursement [address] [place] [address] 02/28/2018 Office Visit Internal Medicine Abram Owens MD [address] [place] [address] [place] [address] [phone] Pending Results Name Priority Associated Diagnoses Date/Ti me CHEMISTRY-OUTSIDE Routine 12/27/2017 12:00 AM EDT Health Maintenance Due Date Last Done Comments Influenza Vaccine (FLU shot) (#1) 2018 03/12/2017, 03/12/2009, 04/24/2006, Additional history exists LUNG CANCER SCREENING YEARLY -USE SMARTSET 03410 06/23/2018 06/23/2017 DIABETES SCREEN EVERY 3 YRS- AGE 45 AND ABOVE 06/23/2020 06/23/2017, 06/18/2017, 05/17/2017, Additional history exists DTaP,Tdap,and Td Vaccines (2 - Td) 10/21/20272017 PNEUMOCOCCAL ADULT 65 YRS AND OVER Completed 2017, 04/27/2017 as of this encounter Implants Not on fileas of this encounter
--- OUTSIDE RECORDS SUMMARY | 2023-04-08 23:27 | External Medical Summary | Summary of Care ---
Author Name Unknown Organization [place] [address] Phone Care Team Providers Care Flight Communications Operator Name Role Phone Abram Owens MD Primary Care Provider [phone] Reason for Visit * Reason Comments MEDICATION REFILL Encounter Details Date Type Department Care Team Description 01/03/2018 Refill Internal Medicine [address] [address] Abram Owens MD [address] [place] [address] [phone] SOB (shortness of breath) Allergies No Known Allergiesas of this encounter Medications Prescription Sig. Disp. Refills Start Date End Date Status MEDICAL INSTRUCTIONSIndicat ions:Severe chronic obstructive pulmonary disease (HCC),COPD exacerbation ([facility] [...] with food 30 Tab 5 06/25/2017 Active acetaminophen (TYLENOL) 500 MG Tablet Take [...] 3 Disk Dosing Unit 3 01/03/2018 Active fluticasone-salmete rol (ADVAIR DISKUS) 250-50 MCG/DOSE inhalerIndications: SOB (shortness of breath) Inhale 1 Puff by mouth 2 times a day. 3 Disk Dosing Unit 1 10/14/2017 01/04/20 18 Discontinued as of this encounter Active Problems Problem Noted Date Chronic respiratory failure with hypoxia , on home O2 therapy ([facility]) 12/03/2017 Stage 3 severe COPD by GOLD classificati on ([facility]) 11/24/2017 Oxygen dependent 11/24/2017 History of tobacco use 10/20/2017 Severe chronic obstructive pulmonary dis ease ([facility]) 10/28/2016 Overview: severe by ATS criteria. significant response after bronchodilator ADVANCE DIRECTIVE INFORMATION 02/01/2008 Overview: No, Advance Directive brochure given to patient. Edentulous as of this encounter Resolved Problems Problem Noted Date Resolved Date Pneumonia 06/13/2017 10/27/2017 Overview: left basal infiltrate COPD exacerbation ([facility]) 10/16/2016 05/03/20 Inflammation of sacroiliac joint ([facility]) 5 03/12/2017 Other abnormal glucose 04/23/2005 [...] encounter Miscellaneous Notes * Telephone Encounter - Titus Romero PA-C - 01/03/2018 3:31 PM EDT Signed Prescriptions: Disp Refills fluticasone-salmeterol (ADVAIR DISKUS) 250*3 Disk*3 Sig: Inhale 1 Puff by mouth 2 times a day. Authorizing Provider: TITUS ROMERO * Telephone Encounter - Ligia Connors LPN - 01/03/2018 3:25 PM EDT Pt needs a hard copy so they can send to pt inventory assistant program Pending Prescriptions: Disp Refills fluticasone-salmeterol (ADVAIR DISKUS) 25*3 Disk*3 Sig: Inhale 1 Puff by mouth 2 times a day. Last Office Visit: 12/03/2017 Next Office Visit: 02/28/2018 Scheduled Provider(s): Abram Owens MD in this encounter Plan of Treatment Upcoming Encounters Date Type Specialty Care Team Description 01/14/2018 Pharmacy Java Software Developer, Pharmacy Reimbursement [address] [place] [address] [phone] 02/28/2018 Office Visit Internal Medicine Abram Owens MD [address] [place] [address] [place] [address] 03/16/2018 Pharmacy Java Software Developer, Pharmacy Reimbursement [address] [place] [address] [phone] Health Maintenance Due Date Last Done Comments Influenza Vaccine (FLU shot) (#1) 2018 03/12/2017, 03/12/2009, 04/24/2006, Additional history exists LUNG CANCER SCREENING YEARLY -USE SMARTSET 20871 06/23/2018 06/23/2017 DIABETES SCREEN EVERY 3 YRS- AGE 45 AND ABOVE 12/27/2020 12/27/2017, 06/23/2017, 06/18/2017, Additional history exists DTaP,Tdap,and Td Vaccines (2 - Td) 10/21/20272017 PNEUMOCOCCAL ADULT 65 YRS AND OVER Completed 2017, 04/27/2017 as of this encounter Implants Not on fileas of this encounter Visit Diagnoses Diagnosis SOB (shortness of breath) Shortness of breath in this encounter
--- OUTSIDE RECORDS SUMMARY | 2023-04-08 23:27 | External Medical Summary | Summary of Care ---
Author Name Unknown Organization [place] [address] Phone Care Team Providers Care Salt Machine Operator Name Role Phone Abram Owens MD Primary Care Provider Reason for Visit * Reason Comments MEDICATION QUESTION Encounter Details Date Type Department Care Team Description 12/27/2017 Pharmacy Pharmacy, [facility] [address], [place] [id number] Coordinator, Pharmacy [facility] [address], [place] [id number] COPD, severe (HCC)* Allergies No Known Allergiesas [...] with hypoxia , on home O2 therapy ([facility]) 12/03/2017 Stage 3 severe COPD by GOLD classificati on ([facility]) 11/24/2017 Oxygen dependent 11/24/2017 History of tobacco use 10/20/2017 Severe chronic obstructive pulmonary dis ease ([facility]) 10/28/2016 Overview: severe by ATS criteria. significant response after bronchodilator ADVANCE DIRECTIVE INFORMATION 02/01/2008 Overview: No, Advance Directive brochure given to patient. Edentulous as of this encounter Resolved Problems Problem Noted Date Resolved Date Pneumonia 06/13/2017 10/27/2017 Overview: left basal infiltrate COPD exacerbation ([facility]) 10/16/2016 05/03/20 17 Inflammation of sacroiliac joint ([facility]) 5 03/12/2017 Other abnormal glucose 04/23/2005 [...] Progress Notes * Chele Gallardo OSA - 10/11/2017 11:[address] refill: Company: [employer]-Phone number [phone] Id# [id number] Rx: Advair Diskus Dose:250-50 MCG Quantity: 3 RX #Please Update Provider: Abram Owens MD Provider Id#[id number] Refill # 2 of 3 Next Refill 03/14/2018 Enrollment Expires 08/03/2018 [facility] sent script request to provider 10/11/2017. JAH [employer] Cable Tower Operator 10/11/2017 11:29 AM [facility] rep advised new script would be needed to place refill, have not received one from provider. [facility] sent script request to provider 12/31/2017, follow up [facility] 01/14/2018 JAH [employer] Cable Tower Operator 12/30/2017, 2:12 PM in this encounter Plan of Treatment Upcoming Encounters Date Type Specialty Care Team Description 01/03/2018 Pharmacy Primer Inserting Machine Adjuster, [facility] [address] [facility] [address] [phone] 02/28/2018 Office Visit Internal Medicine Abram Owens MD [address] [place] [address] [place] [address] Health Maintenance Due Date Last Done Comments Influenza Vaccine (FLU shot) (#1) 2018 03/12/2017, 03/12/2009, 04/24/2006, Additional history exists LUNG CANCER SCREENING YEARLY -USE SMARTSET [id number] 06/23/2018 06/23/2017 DIABETES SCREEN EVERY 3 YRS- [...]
--- OUTSIDE RECORDS SUMMARY | 2023-04-08 23:28 | External Medical Summary | Summary of Care ---
Author Name Unknown Organization [place] [address] Phone Care Team Providers Care Breakfast Bar Attendant Name Role Phone Abram Owens MD Primary Care Provider Encounter Details Date Type Department Care Team Description 12/03/2017 Botany TeacherCalculating Machine Operator Medicine [address] [address] Ohs, Khadijah Sunshine RN [address] [place] [address] [place] [address] [phone] Severe chronic obstructive pulmonary disease (HCC)*;Chronic respiratory failure with hypoxia, on home O2 therapy ([facility]) Allergies No Known Allergiesas of this encounter Medications Prescription Sig. Disp. Refills Start Date End Date Status MEDICAL INSTRUCTIONSIndica tions:Severe chronic obstructive pulmonary disease (HCC),COPD exacerbation ([facility]) Nebulizer and tubing 1 Each 1 03/12/2017 [...] hypoxia , on home O2 therapy ([facility]) 12/03/2017 Stage 3 severe COPD by GOLD classificati on ([facility]) 11/24/2017 Oxygen dependent 11/24/2017 History of tobacco use 10/20/2017 Severe chronic obstructive pulmonary dis ease ([facility]) 10/28/2016 Overview: severe by ATS criteria. significant response after bronchodilator ADVANCE DIRECTIVE INFORMATION 02/01/2008 Overview: No, Advance Directive brochure given to patient. Edentulous as of this encounter Resolved Problems Problem Noted Date Resolved Date Pneumonia 06/13/2017 10/27/2017 Overview: left basal infiltrate COPD exacerbation ([facility]) 10/16/2016 05/03/20 17 Inflammation of sacroiliac joint ([facility]) 5 03/12/2017 Other abnormal glucose 04/23/2005 7 [...] Progress Notes * Khadijah Rehman RN - 12/03/2017 2:48 PM EDT 2 week 2 [facility] for hospital then rehab for severe COPD exacerbation. Daniel is here for a recheck for his pneumonia. Just finished the Cipro course on 12/01/17 which was ordered by Dr Ramirez at his hospital f/u visit 11/24/17 due to continued cough producing green mucus andongoing SOB. He c/o some increased shakiness today. Using inhalers and nebulizer as directed. He turned 77 years last Wednesday. He says his breathing is "no good" although no worse he tells me. Here for recheck by Dr Linares today. CM will f/u again next week. Khadijah Rehman, RN in this encounter Plan of Treatment Upcoming Encounters Date Type Specialty Care Team Description 12/27/2017 Pharmacy Stone Cutter, Pharmacy Reimbursement [address] [facility] [place] [address] 01/03/2018 Pharmacy Stone Cutter, Pharmacy Reimbursement [address] [facility] [place] [address] 02/28/2018 Office Visit Internal Medicine Abram Owens MD [address] [place] [address] [place] [address] Health Maintenance Due Date Last Done Comments LIPID SCREEN EVERY 5 YRS-MEN AGE 35-75 02/16/2013 02/17/2008 LUNG CANCER SCREENING YEARLY -USE SMARTSET 24050 06/23/2018 06/23/2017 DIABETES SCREEN EVERY 3 YRS- [...]
--- OUTSIDE RECORDS SUMMARY | 2023-04-08 23:28 | External Medical Summary | Summary of Care ---
Author Name Unknown Organization [place] [address] Phone Care Team Providers Care Magnetic Observer Name Role Phone Abram Owens MD Primary Care Provider Reason for Visit * Reason Comments Encounter Created in Error Encounter Details Date Type Department Care Team Description 11/25/2017 Telephone Internal Medicine [address] [address] OhsKhadijah RN [address] [place] [address] [phone] Encounter Created in Error Allergies No Known Allergiesas of this encounter [...] to 4LPM with ambulation/exer tion 04/28/2017 Active roflumilast (DALIRESP) 500 MCG TabletIndications: Severe chronic obstructive pulmonary disease (HCC) Take 1 Tab by mouth daily. 30 Tab 5 05/25/2017 Active PredniSONE (DELTASONE) 10 MG TabletIndications: Severe [...] ADULTS) TABS Take by mouth daily. Active ciprofloxacin (CIPRO) 500 MG TabletIndications: Severe chronic obstructive pulmonary disease (HCC),Bronchiectas is with acute exacerbation (HCC) Take 1 Tab by mouth every 12 hours for 7 days. 14 Tab 0 11/24/2017 8 Active levalbuterol (XOPENEX) 1.25 MG/3ML nebulizer solution Inhale 1 Ampule via nebulizer 3 times a day. 11/18/2017 8 Discontinued ipratropium (ATROVENT) 0.02 % nebulizer solution Inhale 500 mcg via nebulizer 3 times a day. 8 Discontinued as of this encounter Active Problems Problem Noted Date Stage 3 severe COPD by GOLD classificati on ([facility]) 11/24/2017 Oxygen dependent 11/24/2017 History of tobacco use 10/20/2017 Severe chronic obstructive pulmonary dis ease ([facility]) 10/28/2016 Overview: severe by ATS [...] Type Specialty Care Team Description 12/27/2017 Pharmacy Cash Register Servicer, Pharmacy Reimbursement [address] [place] [address] [phone] 01/03/2018 Pharmacy Cash Register Servicer, Pharmacy Reimbursement [address] [place] [address] [phone] 02/28/2018 Office Visit Internal Medicine Abram Owens MD [address] [place] [address] [place] [address] Health Maintenance Due Date Last Done Comments LIPID SCREEN EVERY 5 YRS-MEN AGE 35-75 02/16/2013 02/17/2008 *COLORECTAL CANCER SCREENING (COLONOSCOPY 10 YEARS; SIGMOIDOSCOPY 5 YEARS; COLOGUARD 3 YEARS; FOBT 1 YEAR),AGES 50-75 07/11/2017 LUNG CANCER SCREENING YEARLY -USE SMARTSET [id number] 06/23/2018 06/23/2017 DIABETES SCREEN EVERY 3 YRS- [...]
--- OUTSIDE RECORDS SUMMARY | 2023-04-08 23:28 | External Medical Summary | Summary of Care ---
Author Name Unknown Organization [place] [address] Phone Care Team Providers Care Archival Studies Professor Name Role Phone Abram Owens MD Primary Care Provider Encounter Details Date Type Department Care Team Description 11/09/2017 Scan Encounter Unspecified Department <No scans attached> [...] to 4LPM with ambulation/exert ion 04/28/2017 Active roflumilast (DALIRESP) 500 MCG TabletIndications:Se pollo chronic obstructive pulmonary disease (HCC) Take 1 Tab by mouth daily. 30 Tab 5 05/25/2017 Active PredniSONE (DELTASONE) 10 MG TabletIndications:Se pollo chronic obstructive pulmonary disease (HCC) One daily with food 30 Tab 5 06/25/2017 Active albuterol-ipratropiu m (DUONEB) 2.5-0.5 MG/3ML nebulizer solutionIndications: Severe chronic obstructive pulmonary disease (HCC) Inhale 3 mL by mouth every 4 hours as needed for Shortness of Breath or Wheezing. 30 Vial 2 10/12/2017 Active fluticasone-salmeter ol (ADVAIR DISKUS) 250-50 MCG/DOSE inhalerIndications:S OB (shortness of breath) Inhale 1 Puff by mouth 2 times a day. 3 Disk Dosing Unit 1 10/14/2017 Active as of this encounter Active Problems Problem Noted Date History of tobacco use 10/20/2017 Severe chronic obstructive pulmonary dis ease (HCC) 10/28/2016 Overview: severe by ATS criteria. significant response after bronchodilator ADVANCE DIRECTIVE INFORMATION 02/01/2008 Overview: No, Advance Directive brochure given to patient. Edentulous as of this encounter Resolved Problems Problem Noted Date Resolved Date Pneumonia 06/13/2017 10/27/2017 Overview: left basal infiltrate COPD exacerbation ([facility]) 10/16/2016 05/03/20 17 Inflammation of sacroiliac joint ([facility]) 5 03/12/2017 Other abnormal glucose [...] Encounters Date Type Specialty Care Team Description 11/24/2017 Office Visit Internal Medicine Paul Ramirez MD [address] [place] [address] [place] [address] [phone] 12/27/2017 Pharmacy Head Charrer, Pharmacy Reimbursement [address] [place] [address] [phone] 01/03/2018 Pharmacy Head Charrer, Pharmacy Reimbursement [address] [place] [address] [phone] 02/28/2018 Office Visit Internal Medicine Abram Owens MD [address] [place] [address] [place] [address] [phone] Health Maintenance Due Date Last Done Comments LIPID SCREEN EVERY 5 YRS-MEN AGE 35-75 02/16/2013 02/17/2008 *COLORECTAL CANCER SCREENING (COLONOSCOPY 10 YEARS; SIGMOIDOSCOPY 5 YEARS; COLOGUARD 3 YEARS; FOBT 1 YEAR),AGES 50-75 07/11/2017 LUNG CANCER SCREENING YEARLY -USE SMARTSET 12495 06/23/2018 06/23/2017 DIABETES SCREEN EVERY 3 YRS- AGE 45 AND ABOVE 06/23/2020 06/23/2017, 06/18/2017, 05/17/2017, Additional history exists DTaP,Tdap,and Td Vaccines (2 - Td) 10/21/20272017 Influenza Vaccine (FLU shot) Completed 11/2016, 03/12/2009, 04/24/2006, Additional history exists PNEUMOCOCCAL ADULT 65 YRS AND OVER Completed 2017, 04/27/2017 as of this encounter Implants Not on fileas of this encounter
--- OUTSIDE RECORDS SUMMARY | 2023-04-08 23:28 | External Medical Summary | Summary of Care ---
Author Name Unknown Organization [place] [address] Phone Care Team Providers Care Suede Cleaner Name Role Phone Abram Owens MD Primary Care Provider Reason for Visit * Reason Comments FYI Encounter Details Date Type Department Care Team Description 11/10/2017 Telephone Internal Medicine [address] [address] Abram Owens MD [address] [place] [address] [phone] FYI Allergies No Known Allergiesas of this [...] 04/28/2017 Active roflumilast (DALIRESP) 500 MCG TabletIndications:Se abad chronic obstructive pulmonary disease (HCC) Take 1 Tab by mouth daily. 30 Tab 5 05/25/2017 Active PredniSONE (DELTASONE) 10 MG TabletIndications: pollo chronic obstructive pulmonary disease (HCC) One [...] 10/27/2017 Overview: left basal infiltrate COPD exacerbation ([facility]) 10/16/2016 05/03/20 17 Inflammation of sacroiliac joint ([facility]) 5 03/12/2017 Other abnormal glucose 04/23/2005 [...] Miscellaneous Notes * Telephone Encounter - Marylin Meyers, JAH - 11/10/2017 12:22 PM T [facility] calling- AUGUSTINE pt was admitted there on 11/09/17. in this encounter Plan of Treatment Upcoming Encounters Date Type Specialty Care Team Description 12/27/2017 Pharmacy Hood Maker, Pharmacy Reimbursement [address] [place] [address] 01/03/2018 Pharmacy Hood Maker, Pharmacy Reimbursement [address] [place] [address] 02/28/2018 Office Visit Internal Medicine Abram Owens MD [address] [place] [address] [place] Burn[place] [address] Health Maintenance Due Date Last Done Comments LIPID SCREEN EVERY 5 YRS-MEN AGE 35-75 02/16/2013 02/17/2008 *COLORECTAL CANCER SCREENING (COLONOSCOPY 10 YEARS; SIGMOIDOSCOPY 5 YEARS; COLOGUARD 3 YEARS; FOBT 1 YEAR),AGES 50-75 07/11/2017 LUNG CANCER SCREENING YEARLY -USE SMARTSET 63633 06/23/2018 06/23/2017 DIABETES SCREEN EVERY 3 YRS- AGE 45 AND ABOVE 06/23/2020 06/23/2017, 06/18/2017, 05/17/2017, Additional history exists DTaP,Tdap,and Td Vaccines (2 - Td) 10/21/20272017 Influenza Vaccine (FLU shot) Completed 11/2016, 03/12/2009, 04/24/2006, Additional history exists PNEUMOCOCCAL ADULT 65 YRS AND OVER Completed 2017, 04/27/2017 as of this encounter Implants Not on fileas of this encounter
--- OUTSIDE RECORDS SUMMARY | 2023-04-08 23:28 | External Medical Summary | Summary of Care ---
Author Name Unknown Organization [place] [address] Phone Care Team Providers Care Venetian Blind Washer Name Role Phone Abram Owens MD Primary Care Provider Encounter Details Date Type Department Care Team Description 11/25/2017 Utility LocatorBox Sorter Medicine [address] [address] OhsKhadijah RN [address] [place] [address] [place] [address] [phone] Stage 3 severe COPD by GOLD classification ([facility])*;Severe chronic obstructive pulmonary disease (HCC) Allergies No Known Allergiesas of this encounter Medications Prescription Sig. Disp. Refills Start Date End Date Status MEDICAL INSTRUCTIONSIndica tions:Severe chronic obstructive pulmonary disease (HCC),COPD exacerbation ([facility]) Nebulizer and tubing 1 Each 1 [...] a day. 75 mL 12 11/25/2017 Active levalbuterol (XOPENEX) 1.25 MG/3ML nebulizer solution Inhale 1 Ampule via nebulizer 3 times a day. 11/18/2017 8 Discontinued ipratropium (ATROVENT) 0.02 % nebulizer solution Inhale 500 mcg via nebulizer 3 times a day. 8 Discontinued as of this encounter Active Problems Problem Noted Date Stage 3 severe COPD by GOLD classificati on (HCC) 11/24/2017 Oxygen dependent 11/24/2017 History of tobacco [...] Progress Notes * Khadijah Rehman RN - 11/25/2017 3:00 PM EDT Case Management Assessment Is this call for a hospital, intermediate or rehab facility discharge to home? No S: Reports: Daniel was recently in the hospital for COPD exacerbation. He slowly improved and was discharged to [facility] for rehab due to severe deconditioning. On 11-17-17 he was discharged home although I was not aware until earlier this week. He was in and saw Dr Ramirez yesterday for his hospital f/u visit. He reported chest congestion and cough productive for green mucus. Dr Ramirez ordered Cipro twice daily x 7 days. Daniel reports that he has not picked this up yet. [facility]. She said she will be glad to deliver his medicine on the way home tonight. Daniel isaware and appreciative as he is not driving and is at work. Directed to get 1 dose in this evening and then every 12 hours for total of 7 days. He will need his nebulizer medicines reordered. Request for refill placed and will go to [facility] in [place] as can be billed under Part B. Daniel is aware that order will go to [facility]. His son is getting tomorrow and this is Daniel's birthday. He has rented a 02 concentrator so he doesn't have to carry 02 tanks around. It is in a bag so he will be able to easily carry it. Still c/o SOB with any exertion and needs frequent rests. He will call Dr Gill early next week and get scheduled for f/u appointment since hospital stay. O: Phone visit for CM 3 month assessment as well as week 1 call 2 for hospital f/u. Medications: takes all medications as prescribed. [...] to communicate, understand instructions, process information. P: Utility Locator Interventions: Reinforce Self Management Action Plan established [...] towards goals achievement: Plan to call patient early next week to reassess and update plan of care, instructed to call Utility Locator or Primary Care Provider with change in symptoms or as needed before next follow-up, verbalizes understanding and agrees with plan. Khadijah Rehman RN Outpatient Utility Locator in this encounter Plan of Treatment Upcoming Encounters Date Type Specialty Care Team Description 12/27/2017 Pharmacy Supervisor Inspection And Testing, Pharmacy Reimbursement [address] [place] [address] 01/03/2018 Pharmacy Supervisor Inspection And Testing, Pharmacy Reimbursement [address] [place] [address] 02/28/2018 Office Visit Internal Medicine Abram Owens MD [address] [place] [address] [place] [address] Health Maintenance Due Date Last Done Comments LIPID SCREEN EVERY 5 YRS-MEN AGE 35-75 02/16/2013 02/17/2008 *COLORECTAL CANCER SCREENING (COLONOSCOPY 10 YEARS; SIGMOIDOSCOPY 5 YEARS; COLOGUARD 3 YEARS; FOBT 1 YEAR),AGES 50-75 07/11/2017 LUNG CANCER SCREENING YEARLY -USE SMARTSET 21351 06/23/2018 06/23/2017 DIABETES SCREEN EVERY 3 YRS- [...] COPD by GOLD classification (HCC) - Primary Severe chronic obstructive p ulmonary disease (HCC) Chronic airway obstruction, not elsewhere classified in this encounter
--- OUTSIDE RECORDS SUMMARY | 2023-04-08 23:28 | External Medical Summary | Summary of Care ---
Author Name Unknown Organization [place] [address] Phone Care Team Providers Care Special Education Preschool Teacher Name Role Phone Abram Owens MD Primary Care Provider [phone] Encounter Details Date Type Department Care Team [...] 10/27/2017 Overview: left basal infiltrate COPD exacerbation ([facility]) 10/16/2016 05/03/20 17 Inflammation of sacroiliac joint ([facility]) 5 03/12/2017 Other abnormal glucose 04/23/2005 [...] Office Visit Internal Medicine Paul Ramirez MD [address] [place] [address] [place] [address] [phone] 12/27/2017 Pharmacy Therapeutic Activities Services Worker, Pharmacy Reimbursement [address] [place] [address] [phone] 01/03/2018 Pharmacy Therapeutic Activities Services Worker, Pharmacy Reimbursement [address] [place] [address] [phone] 02/28/2018 Office Visit Internal Medicine Abram Owens MD [address] [place] [address] [place] [address] [phone] Health Maintenance Due Date Last Done Comments LIPID SCREEN EVERY 5 YRS-MEN AGE 35-75 02/16/2013 02/17/2008 *COLORECTAL CANCER SCREENING (COLONOSCOPY 10 YEARS; SIGMOIDOSCOPY 5 YEARS; COLOGUARD 3 YEARS; FOBT 1 YEAR),AGES 50-75 07/11/2017 LUNG CANCER SCREENING YEARLY -USE SMARTSET [id number] 06/23/2018 06/23/2017 DIABETES SCREEN EVERY 3 YRS- AGE 45 AND ABOVE 06/23/2020 06/23/2017, 06/18/2017, 05/17/2017, Additional history exists DTaP,Tdap,and Td Vaccines (2 - Td) 10/21/20272017 Influenza Vaccine (FLU shot) Completed 11/2016, 03/12/2009, 04/24/2006, Additional history exists PNEUMOCOCCAL ADULT 65 YRS AND OVER Completed 2017, 04/27/2017 as of this encounter Implants Not on fileas of this encounter
--- OUTSIDE RECORDS SUMMARY | 2023-04-08 23:28 | External Medical Summary | Summary of Care ---
Author Name Unknown Organization [place] [address] Phone Care Team Providers Care Big Data Admin Name Role Phone Abram Owens MD Primary Care Provider Encounter Details Date Type Department Care Team Description 11/29/2017 Commercial Loan AssistantJob Interviewer Medicine [address] [address] OhsKhadijah RN [address] [place] [address] [place] [address] [phone] Oxygen dependent*;Severe chronic obstructive pulmonary disease (HCC) Allergies No [...] to 4LPM with ambulation/exerti on 04/28/2017 Active roflumilast (DALIRESP) 500 MCG TabletIndications:S clarisa chronic obstructive pulmonary disease (HCC) Take 1 Tab by mouth daily. 30 Tab 5 05/25/2017 Active PredniSONE (DELTASONE) 10 MG TabletIndications:Ximena mckenna chronic obstructive pulmonary disease (HCC) One daily [...] mouth daily. Active ciprofloxacin (CIPRO) 500 MG TabletIndications:S clarisa chronic obstructive pulmonary disease (HCC),Bronchiectasi s with acute exacerbation (HCC) Take 1 Tab by mouth every 12 hours for 7 days. 14 Tab 0 11/24/2017 12/01/2017 Active levalbuterol (XOPENEX) 1.25 MG/3ML nebulizer solution Use Three times daily 270 mL 5 11/25/2017 Active ipratropium (ATROVENT) 0.02 % nebulizer solution Inhale 2.5 mL via nebulizer 3 times a day. 75 mL 12 11/25/2017 Active as of this encounter Active Problems Problem Noted Date Stage 3 severe COPD by GOLD classificati on ([facility]) 11/24/2017 Oxygen dependent 11/24/2017 History of tobacco use 10/20/2017 Severe chronic obstructive pulmonary dis ease ([facility]) 10/28/2016 Overview: severe by ATS criteria. [...] Progress Notes * Khadijah Rehman RN - 11/29/2017 3:35 PM EDT Week 2 call #1 [facility] for hospital stay for COPD exacerbation followed by stay at [facility]. Daniel was 77 years old on Wednesday. His son got as well. They celebrated both wedding and Daniel'. He rented a portable concentrator for the week so he didn't have to drag 02 tanks around. He says his breathing has been "tight". He ran out of the Levalbuterol. advised he use the Albuterol for his nebulizer with the Ipratropium until the Levalbuterol is delivered from [facility]. He hasn't had a nebulizer treatment yet today as he didn't know what to do? He is still coughing some greenish mucus. Seems to be clearing up since the Cipro. I have convincedhim to come in on Wednesday and get checked before the weekend due to his ongoing SOB and unresolved pneumonia per Dr Ramirez. Scheduled with Dr Linares for Wednesday at 2 PM. He will check with his and make sure he can make that time and let me know. He is staying close to the air conditioners due to the heat. CM will f/u again in a couple days. Khadijah Rehman RN in this encounter Plan of Treatment Upcoming Encounters Date Type Specialty Care Team Description 12/03/2017 Office Visit Internal Medicine Jian Linares, DO [address] [facility], [place] [id number] 12/27/2017 Pharmacy Chief Lifestyle Officer, Pharmacy Reimbursement [address] [place] [address] [phone] 01/03/2018 Pharmacy Chief Lifestyle Officer, Pharmacy Reimbursement [address] [place] [address] [phone] 02/28/2018 Office Visit Internal Medicine Abram Owens MD [address] [place] [address] [place] [address] Health Maintenance Due Date Last Done Comments LIPID SCREEN EVERY 5 YRS-MEN AGE 35-75 02/16/2013 02/17/2008 LUNG CANCER SCREENING YEARLY -USE SMARTSET 35470 06/23/2018 06/23/2017 DIABETES SCREEN EVERY 3 YRS- AGE 45 AND ABOVE 06/23/2020 06/23/2017, 06/18/2017, 05/17/2017, Additional history exists DTaP,Tdap,and Td Vaccines (2 - Td) 10/21/20272017 Influenza Vaccine (FLU shot) Completed 11/2016, 03/12/2009, 04/24/2006, Additional history exists PNEUMOCOCCAL ADULT 65 YRS AND OVER Completed 2017, 04/27/2017 as of this encounter Implants Not on fileas of this encounter Visit Diagnoses Diagnosis Oxygen dependent - Primary Dependence on supplemental oxygen Severe chronic obstructive p ulmonary disease (HCC) Chronic airway obstruction, not elsewhere classified in this encounter
--- OUTSIDE RECORDS SUMMARY | 2023-04-08 23:28 | External Medical Summary | Summary of Care ---
Author Name Unknown Organization [place] [address] Phone Care Team Providers Care Medical Logistics Specialist Name Role Phone Abram Owens MD Primary Care Provider Encounter Details Date Type Department Care Team Description 11/23/2017 Nursing Agency ManagerElectrical Appliance Servicer Medicine [address] [address] OhsKhadijah RN [address] [place] [address] [place] [address] [phone] Severe chronic obstructive pulmonary disease (HCC)* Allergies No Known Allergiesas of this [...] via nebulizer 3 times a day. 11/18/2017 Active ipratropium (ATROVENT) 0.02 % nebulizer solution Inhale 500 mcg via nebulizer 3 times a day. Active albuterol-ipratrop ium (DUONEB) 2.5-0.5 MG/3ML nebulizer solutionIndication s:Severe chronic obstructive pulmonary disease (HCC) Inhale 3 mL by mouth every 4 hours as needed for Shortness of Breath or Wheezing. 30 Vial 2 10/12/2017 8 Discontinued as of this encounter Active [...] Progress Notes * Khadijah Rehman RN - 11/23/2017 4:07 PM EDT Case Management Assessment Is this call for a hospital, long-term or rehab facility discharge to home? Yes Daniel was admittedto [facility] on 10-31-17 with c/o progressive increase in SOB, cough and green mucus. He was in significant distress at presentation to the ER. He was treated with IV steroids and antibioticcs as well as inhalation medicines. He prgressed slowly and was finally dischharged to [facility] on 11-09-17 for pulmonaryrehab and for seevre deconditioning. S: Reports: Daniel called me today to tell me he was home from [facility] as I was not aware despite faxing requests for updates on the day he was admitted to [facility]. He says the last few days have been difficult due to high humidity and very hot weather. He uses fans at home. He tells me he is very weak still but a bit better than he had been. His son is getting on Wednesday which is Adniel's birthday. He plans to call [facility] r/t getting [employer] tank due to being at his son's wednesday. He uses the concentrator at home. Also he will call Dr Gill's office to see when he should be seen. Here was nothing on [place] nor [facility] discharge. He has an appointment with pulm but not for a few months. CM advised that he should be seen since he has been hospitalized. Still on the decreasing doses of Prednisone then will take 1 tab 10mg daily indefinitely. Cipro is finished. O: Phone visit for CM SULEMA for [facility] then [facility] for COPD exacerbation. Medications: takes all medications as [...] to communicate, understand instructions, process information. P: Nursing Agency Manager Interventions: Reinforce Self Management Action Plan established [...] achievement: Plan to call patient in a couple days to reassess and update plan of care, instructed to call Nursing Agency Manager or Primary Care Provider with change in symptoms or as needed before next follow-up, verbalizes understanding and agrees with plan. Khadijah Rehman, RN Outpatient Nursing Agency Manager in this encounter Plan of Treatment Upcoming Encounters Date Type Specialty Care Team Description 11/24/2017 Office Visit Internal Medicine Paul Ramirez MD [address] [place] [address] [place] [address] [phone] 12/27/2017 Pharmacy Flooring Helper, Pharmacy Reimbursement [address] [place] [address] [phone] 01/03/2018 Pharmacy Flooring Helper, Pharmacy Reimbursement [address] [place] [address] [phone] 02/28/2018 Office Visit Internal Medicine Abram Owens MD [address] [place] [address] [place] [address] [phone] Health Maintenance Due Date Last Done Comments LIPID SCREEN EVERY 5 YRS-MEN AGE 35-75 02/16/2013 02/17/2008 *COLORECTAL CANCER SCREENING (COLONOSCOPY 10 YEARS; SIGMOIDOSCOPY 5 YEARS; COLOGUARD 3 YEARS; FOBT 1 YEAR),AGES 50-75 07/11/2017 LUNG CANCER SCREENING YEARLY -USE SMARTSET [id number] 06/23/2018 06/23/2017 DIABETES SCREEN EVERY 3 YRS- [...]
--- OUTSIDE RECORDS SUMMARY | 2023-04-08 23:28 | External Medical Summary | Summary of Care ---
Author Name Unknown Organization [place] [address] Phone Care Team Providers Care Contract Administration Manager Name Role Phone Abram Owens MD Primary Care Provider [phone] Reason for Visit * Reason Comments MEDICATION REFILL Encounter Details Date Type Department Care Team Description 11/25/2017 Refill Internal Medicine [address] [address] Abram Owens MD [address] [place] [address] [phone] Allergies No Known Allergiesas of this encounter [...] pulmonary disease (HCC),Bronchiectas is with acute exacerbation ([facility]) Take 1 Tab [...] 10/27/2017 Overview: left basal infiltrate COPD exacerbation ([facility]) 10/16/2016 05/03/20 17 Inflammation of sacroiliac joint ([facility]) 5 03/12/2017 Other abnormal [...] Telephone Encounter - Shantelle Jacobo RN - 11/25/2017 2:38 PM EDT Formatting of this note may be different from the original. Pending Prescriptions: Disp Refills levalbuterol (XOPENEX) 1.25 MG/3ML nebuli*270 mL 5 Sig: Use Three times daily ipratropium (ATROVENT) 0.02 % nebulizer s*75 mL 12 Sig: Inhale 2.5 mL via nebulizer 3 times a day. Last Office Visit: 11/24/2017 Next Office Visit: 02/28/2018 Scheduled Provider(s): Abram Owens MD If no future appointments scheduled, and last appointment is greater than a year ago, please schedule patient for a follow-up appointment Last date the medication was ordered: Historical ordered in hospital Patient Phone Numbers Labs: Lab Results Component Value Date/Time CREAT 0.91 06/23/2017 CREAT 1.1 06/18/2017 09:59 AM POTASSIUM 3.8 06/18/2017 09:59 AM TSH 1.06 08/30/2006 11:56 AM LDLCALC 74 02/17/2008 03:12 PM ALT 23 02/17/2008 03:12 PM HGBA1C 5.7 08/30/2006 11:56 AM in this encounter Plan of Treatment Upcoming Encounters Date Type Specialty Care Team Description 12/27/2017 Pharmacy City Comptroller, [facility] [address] [facility] [place] [address] 01/03/2018 Pharmacy City Comptroller, Pharmacy Reimbursement [address] [facility] [place] [address] 02/28/2018 Office Visit Internal Medicine Abram Owens MD [address] [place] [address] AB[place] Burnham [address] [phone] Health Maintenance Due Date Last Done Comments LIPID SCREEN EVERY 5 YRS-MEN AGE 35-75 02/16/2013 02/17/2008 *COLORECTAL CANCER SCREENING (COLONOSCOPY 10 YEARS; SIGMOIDOSCOPY 5 YEARS; COLOGUARD 3 YEARS; FOBT 1 YEAR),AGES 50-75 07/11/2017 LUNG CANCER SCREENING YEARLY -USE SMARTSET [id number] 06/23/2018 06/23/2017 DIABETES SCREEN EVERY 3 YRS- AGE 45 AND ABOVE 06/23/2020 06/23/2017, 06/18/2017, 05/17/2017, Additional history exists DTaP,Tdap,and Td Vaccines (2 - Td) 10/21/20272017 Influenza Vaccine (FLU shot) Completed 11/2016, 03/12/2009, 04/24/2006, Additional history exists PNEUMOCOCCAL ADULT 65 YRS AND OVER Completed 2017, 04/27/2017 as of this encounter Implants Not on fileas of this encounter
--- OUTSIDE RECORDS SUMMARY | 2023-04-08 23:28 | External Medical Summary | Summary of Care ---
Author Name Unknown Organization [place] [address] Phone Care Team Providers Care Weight And Test Bar Clerk Name Role Phone Abram Owens MD Primary Care Provider [phone] Reason for Visit * Reason Comments HOSPITAL FOLLOW-UP [facility] SITE D exacerbation. Pt states feeling "terrible" now. Pt states he feels he still has pneumonia. Encounter Details Date Type Department Care Team Description 11/24/2017 Office Visit Internal Medicine [address] [address] Paul Ramirez MD [address] [place] [address] [place] [address] Severe chronic obstructive pulmonary disease (HCC)*;Stage 3 severe COPD by GOLD classification ([facility]);Oxygen dependent;Edentulous;His tory of tobacco use;Bronchiectasis with acute exacerbation ([facility]) Allergies No Known Allergiesas of this encounter [...] 04/28/2017 Active roflumilast (DALIRESP) 500 MCG TabletIndications:S evere chronic obstructive pulmonary disease (HCC) Take 1 Tab by mouth daily. 30 Tab 5 05/25/2017 Active PredniSONE (DELTASONE) 10 MG TabletIndications:S evere [...] via nebulizer 3 times a day. Active ciprofloxacin (CIPRO) 500 MG TabletIndications:S evere chronic obstructive pulmonary disease (HCC),Bronchiectasi s with acute exacerbation (HCC) Take 1 Tab by mouth every 12 hours for 7 days. 14 Tab 0 11/24/2017 12/01/2017 Active as of this encounter Active Problems Problem Noted Date Stage 3 severe COPD by GOLD classificati on ([facility]) 11/24/2017 Oxygen dependent 11/24/2017 History of tobacco use 10/20/2017 Severe chronic obstructive pulmonary dis ease ([facility]) 10/28/2016 Overview: severe by ATS criteria. significant [...] Vital Sign Reading Time Taken Blood Pressure 120/64 11/24/2017 9:57 AM EDT Pulse 113 11/24/2017 9:57 AM EDT Temperature 36.2 C (97.2 F) 11/24/2017 9 :57 AM EDT Respiratory Rate 18 11/24/2017 9:57 AM EDT Oxygen Saturation 96% 11/24/2017 9:5 7 AM EDT Inhaled Oxygen Concentration - - Weight 59.9 kg (132 lb) 11/24/2017 9:57 AM EDT Height - - Body Mass Index 20.33 11/24/2017 9:57 AM EDT in this encounter Progress Notes * Paul Ramirez MD - 11/24/2017 10:23 AM EDT Formatting of this note may be different from the original. Subjective: Jer Abreu Jr. is a 76 year old male Chief Complaint Patient presents with HOSPITAL FOLLOW-UP [facility] COPD exacerbation. Pt states feeling "terrible" now. Pt states he feels he still has pneumonia. HPI: Jer Abreu Jr. is a 76 year old male who presents with a chief complaint of HOSPITAL FOLLOW-UP ([facility] COPD exacerbation. Pt states feeling "terrible" now. Pt states he feels he still has pneumonia. 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 Using oxygen 24/7, 2.5-3 LPM Sleeping well, tired in am, No longer smoking, taking medications as prescribed, notes sputum is developing some color the pastweek, increased amounts and thicker Patient Active Problem List Diagnosis Code ADVANCE DIRECTIVE INFORMATION Severe chronic obstructive pulmonary disease ([facility]) J44.9 History of tobacco use Z87.891 Edentulous K00.0 Stage 3 severe COPD by GOLD classification (HCC) J44.9 Oxygen dependent Z99.81 Current Outpatient Prescriptions Medication Sig Dispense Refill acetaminophen (TYLENOL) 500 MG Tablet Take 500 mg by mouth every 4 hours as needed for Pain. albuterol (PROAIR HFA) 108 (90 BASE) MCG/ACT inhaler Inhale 2 Puffs by mouth every 4 hours as needed for Shortness of Breath or Wheezing. 1 Inhaler 5 Benzocaine 20 % gel Apply to the mouth or throat as needed. ciprofloxacin (CIPRO) 500 MG Tablet Take 1 Tab by mouth every 12 hours for 7 days. 14 Tab 0 docusate sodium (COLACE) 100 MG Capsule Take 100 mg by mouth 2 times a day as needed for Constipation. fluticasone-salmeterol (ADVAIR DISKUS) 250-50 MCG/DOSE inhaler Inhale 1 Puff by mouth 2 times aday. 3 Disk Dosing Unit 1 folic acid 1 MG Tablet Take 1 mg by mouth daily. hydrocortisone acetate (ANUSOL-HC) 25 MG suppository Administer 25 mg into the rectum 2 times aday as needed for Hemorrhoids. ipratropium (ATROVENT) 0.02 % nebulizer solution Inhale 500 mcg via nebulizer 3 times a day. levalbuterol (XOPENEX) 1.25 MG/3ML nebulizer solution Inhale 1 Ampule via nebulizer 3 times a day. MEDICAL INSTRUCTIONS Nebulizer and tubing 1 Each 1 Multiple Vitamins-Minerals (MULTIVITAMIN ADULTS) TABS Take by mouth daily. oxygen GAS Use 2 L/min(Oxygen) as directed continuous. Indications: Inc to 4LPM with ambulation/exertion PredniSONE (DELTASONE) 10 MG Tablet One daily with food (Patient taking differently: 10 mg. Onedaily with food Indications: 1 daily after decreasing doses as directed) 30 Tab 5 roflumilast (DALIRESP) 500 MCG Tablet Take 1 Tab by mouth daily. (Patient taking differently: Take 500 mcg by mouth daily. Indications: [facility] get [facility] when needed.) 30 Tab 5 THIAMINE (VITAMIN B-1) 100 MG Tablet Take 100 mg by mouth daily. Review of patient's allergies indicates: No Known Allergies Past Medical History: Diagnosis Date Acute exacerbation of COPD with asthma ([facility]) 04/23/2017 [facility] Edentulous Inflammation of sacroiliac joint ([facility]) 04/24/05 Loss of teeth due to trauma, extraction, or periodontal disease Other abnormal glucose 04/23/05 glucose 156 Other abnormal glucose 02/22/08 glucose 167 Other disorders of vitreous 12/05 Posterior vitreous detachment OS Other specified disorders of rotator cuff syndrome of shoulder and allied disorders 05/10 right shoulder Pneumonia 06/13/2017 left basal infiltrate Pneumonia due to Pseudomonas ([facility]) 05/20/2017 Severe chronic obstructive pulmonary disease ([facility]) 10/28/2016 severe by ATS criteria. significant response [...] normal LV size and function, EF 55-60% Objective: The patient is a 76 year old male BP 120/64 | Pulse 113 | Temp (Src) 97.2 (Tympanic) | Resp 18 | Wt 132 lbs (59.875kg) | BMI 20.33 kg/m | BSA 1.69 m | SaO2 96% General: alert, healthy, well nourished, well developed, anxious, cooperative, malnourished and moderate distress, oxygen via nasal cannula is on at 2.5 LPM Neck: supple, no adenopathy, no bruits, thyroid normal size, non-tender, without nodularity, no stridor, non-tender, neck veins flat Lymph: no palpable lymphadenopathy Heart: regular rate & rhythm, no murmurs, no gallops and heart sounds are distant and partiallyobscured by heart sounds Lungs: chest symmetric with normal AP diameter, no chest deformities noted, no chest wall tenderness, coarse sounds heard, decreased breath sounds Extremities: no joint deformities, effusion, or inflammation, no edema, no clubbing, no cyanosis ASSESSMENT/PLAN: Appears to have a worsening bronchitis with increased phlegm and will treat with cipro for another ten days. To call if any fever, sweats or chills or worsening cough. J44.9 Severe chronic obstructive pulmonary disease (hcc) (primary encounter diagnosis) Plan: Ciprofloxacin hcl 500 mg po tabs Sig:Take 1 tab by mouth every 12 hours for 7 days. J44.9 Stage 3 severe copd by gold classification (hcc) Z99.81 Oxygen dependent K00.0 Edentulous Z87.891 History of tobacco use J47.1 Bronchiectasis with acute exacerbation (hcc) Plan: Ciprofloxacin hcl 500 mg po tabs Sig:Take 1 tab by mouth every 12 hours for 7 days. Follow up: Return in about 3 months (around 02/24/2018), or if symptoms worsen or fail to improve. Paul Ramirez MD [address] [place] [address] in this encounter Plan of Treatment Upcoming Encounters Date Type Specialty Care Team Description 12/27/2017 Pharmacy Song Lyricist, Pharmacy Reimbursement [address] [place] [address] [phone] 01/03/2018 Pharmacy Song Lyricist, Pharmacy Reimbursement [address] [place] [address] [phone] 02/28/2018 Office Visit Internal Medicine Abram Owens MD [address] [place] [address] [place] Burnham [address] [phone] Health Maintenance Due Date Last Done Comments LIPID SCREEN EVERY 5 YRS-MEN AGE 35-75 02/16/2013 02/17/2008 *COLORECTAL CANCER SCREENING (COLONOSCOPY 10 YEARS; SIGMOIDOSCOPY 5 YEARS; COLOGUARD 3 YEARS; FOBT 1 YEAR),AGES 50-75 07/11/2017 LUNG CANCER SCREENING YEARLY -USE SMARTSET [id number] 06/23/2018 06/23/2017 DIABETES SCREEN EVERY 3 YRS- [...] COPD by GOLD classification ([facility]) Oxygen dependent Dependence on supplemental oxygen Edentulous Anodontia History of tobacco use Personal history of tobacco use, presenting hazards to health Bronchiectasis with acute ex acerbation (HCC) Bronchiectasis with acute exacerbation in this encounter
--- OUTSIDE RECORDS SUMMARY | 2023-04-08 23:28 | External Medical Summary | Summary of Care ---
Author Name Unknown Organization [place] [address] Phone Care Team Providers Care Power And Recovery Supervisor Name Role Phone Abram Owens MD [...] 10/27/2017 Overview: left basal infiltrate COPD exacerbation ([facility]) 10/16/2016 05/03/20 17 Inflammation of sacroiliac joint ([facility]) 5 03/12/2017 Other abnormal [...] Type Specialty Care Team Description 12/27/2017 Pharmacy Windsurfing Instructor, Pharmacy Reimbursement [address] [facility] [place] [address] 01/03/2018 Pharmacy Windsurfing Instructor, Pharmacy Reimbursement [address] [place] [address] 02/28/2018 Office Visit Internal Medicine Abram Owens MD [address] [place] [address] ABRAHAM Burnham [phone] Health Maintenance Due Date Last Done Comments LIPID SCREEN EVERY 5 YRS-MEN AGE 35-75 02/16/2013 02/17/2008 *COLORECTAL CANCER SCREENING (COLONOSCOPY 10 YEARS; SIGMOIDOSCOPY 5 YEARS; COLOGUARD 3 YEARS; FOBT 1 YEAR),AGES 50-75 07/11/2017 LUNG CANCER SCREENING YEARLY -USE SMARTSET [id number] 06/23/2018 06/23/2017 DIABETES SCREEN EVERY 3 YRS- AGE 45 AND ABOVE 06/23/2020 06/23/2017, 06/18/2017, 05/17/2017, Additional history exists DTaP,Tdap,and Td Vaccines (2 - Td) 10/21/20272017 Influenza Vaccine (FLU shot) Completed 11/2016, 03/12/2009, 04/24/2006, Additional history exists PNEUMOCOCCAL ADULT 65 YRS AND OVER Completed 2017, 04/27/2017 as of this encounter Implants Not on fileas of this encounter
--- OUTSIDE RECORDS SUMMARY | 2023-04-08 23:29 | External Medical Summary | Summary of Care ---
Author Name Unknown Organization [place] [address] Phone Care Team Providers Care Commercial Credit Lead Name Role Phone Abram Owens MD Primary Care Provider Encounter Details Date Type Department Care Team Description 10/27/2017 Business BankerLineworker Medicine [address] [address] OhsKhadijah RN [address] [place] [address] [place] [address] [phone] Severe chronic obstructive pulmonary disease (HCC)* Allergies [...] ion 04/28/2017 Active roflumilast (DALIRESP) 500 MCG TabletIndications: pollo chronic obstructive pulmonary disease (HCC) Take [...] Overview: left basal infiltrate COPD exacerbation ([facility]) 10/16/2016 05/03/20 17 Inflammation of sacroiliac joint ([facility]) 5 03/12/2017 Other abnormal glucose 04/23/2005 7 [...] Progress Notes * Khadijah Rehman RN - 10/27/2017 2:43 PM EDT Week 2 SULEMA for hospital stay for COPD exacerbation and respiratory failure. He is here with his today for regular check by Dr Owens. He saw Dr Ramirez for his hospital f/u last week. He is using his 02 all of the time and has his tank with him today. Carries his inhaler in his chest pocket so he has it if he needs it. Occasional cough. Feels much better than he had when he was admitted. He does walk around quite a bit but can't go too far without needing to rest and recover. He is eating and sleeping well. He continues to receive medications from pharm companies as he can't afford them otherwise. Just received another 90 day supply of the Daliresp and inhalers. CM will f/u again next week. Khadijah Rehman, RN in this encounter Plan of Treatment Upcoming Encounters Date Type Specialty Care Team Description 12/27/2017 Pharmacy Miter Grinder Operator, Pharmacy Reimbursement [address] [place] [facility] [place] [address] 01/03/2018 Pharmacy Miter Grinder Operator, Pharmacy Reimbursement [address] [place] [address] 02/28/2018 Office Visit Internal Medicine Abram Owens MD [address] [place] [address] [place] [address] Health Maintenance Due Date Last Done Comments LIPID SCREEN EVERY 5 YRS-MEN AGE 35-75 02/16/2013 02/17/2008 *COLORECTAL CANCER SCREENING (COLONOSCOPY 10 YEARS; SIGMOIDOSCOPY 5 YEARS; COLOGUARD 3 YEARS; FOBT 1 YEAR),AGES 50-75 07/11/2017 LUNG CANCER SCREENING YEARLY -USE SMARTSET [id number] 06/23/2018 06/23/2017 DIABETES SCREEN EVERY 3 YRS- [...]
--- OUTSIDE RECORDS SUMMARY | 2023-04-08 23:29 | External Medical Summary | Summary of Care ---
Author Name Unknown Organization [place] [address] Phone Care Team Providers Care Semiconductor Wafers Etch Operator Name Role Phone Abram Owens MD Primary Care Provider Reason for Visit * Reason Comments MED REQUEST Encounter Details Date Type Department Care Team Description 09/09/2017 Telephone Internal Medicine [address] [address] OhsKhadijah RN [address] [place] [address] [phone] MED REQUEST Allergies No Known Allergiesas of [...] 05/25/2017 Active PredniSONE (DELTASONE) 10 MG TabletIndications:Se abad chronic obstructive pulmonary disease (HCC) One daily with food 30 Tab 5 06/25/2017 Active fluticasone-salmeter ol (ADVAIR DISKUS) 250-50 MCG/DOSE inhalerIndications:S OB (shortness of breath) Inhale 1 Puff by mouth 2 times a day. 3 Disk Dosing Unit 1 07/28/2017 Active as of this encounter Active Problems Problem Noted Date Pneumonia 06/13/2017 Overview: left basal infiltrate Severe chronic obstructive pulmonary dis ease ([facility]) 10/28/2016 Overview: severe by ATS criteria. significant response after bronchodilator ADVANCE DIRECTIVE INFORMATION 02/01/2008 Overview: No, Advance Directive brochure given to patient. Tobacco use disorder 04/22/2005 Loss of teeth due to trauma, extraction, or periodontal disease as of this encounter Resolved Problems Problem Noted Date Resolved Date COPD exacerbation ([facility]) 10/16/2016 05/03/20 17 Inflammation of sacroiliac joint ([facility]) 200 5 03/12/2017 Other abnormal glucose 04/23/2005201 7 Overview: glucose 156 SPRAIN SACROILIAC 03/19/2005 05/03/2017 Other specified disorders of rotator cuff syndrome of shoulder and allied disorders 05/23/2004 05/03/2017 Overview: right shoulder Other disorders of vitreous 06/07 as of this encounter Immunizations Name Dates Previously Given Next Due PPD 04/22/2005 Pneumococcal Polyvalent Vacc (Pneumovax) 017 Seasonal Influenza, Quadriva lent, No Preserve, 6 Mons & Above, IM 03/12/2017 Seasonal Influenza, Trivalen t, with Preserve, 3yr & Above, Split 03/12/2009,04/24/2006,04/18/2005 as of this encounter Social History Tobacco Use Types Packs/Day Years Used Date Former Smoker Cigarettes 2 50 Quit: 04/07 Smokeless Tobacco: Never Used Comments:started age 16 Alcohol Use Drinks/Week oz/Week Comments Yes 3-4 beers per d ay Sex Assigned at Date Recorded Not on file as of this encounter Miscellaneous Notes * Telephone Encounter - Shantelle Jacobo RN - 09/10/2017 11:09 AM EDT Order sent. * Telephone Encounter - Khadijah Rehman RN - 09/10/2017 8:25 AM EDT Was this sent to [facility] in [place]? It is to get him through the weekend until [facility] deliversthe order on Wednesday. Thanks, Khadijah Rehman RN * Telephone Encounter - Khadijah Rehman RN - 09/09/2017 10:53 AM EDT Order for [facility] in [place] for 1 box of 25. Thanks, Khadijah Rehman RN in this encounter Plan of Treatment Upcoming Encounters Date Type Specialty Care Team Description 10/11/2017 Pharmacy Supervisor Assembly Room, Pharmacy Reimbursement [address] [place] [address] [phone] 10/20/2017 Pharmacy Supervisor Assembly Room, Pharmacy Reimbursement [address] [place] [address] [phone] 10/27/2017 Office Visit Internal Medicine Abram Owens MD [address] [place] [address] [place] [address] Health Maintenance Due Date Last Done Comments DTaP,Tdap,and Td Vaccines (1 - Tdap) 1959 LIPID SCREEN EVERY 5 YRS-MEN AGE 35-75 02/16/2013 02/17/2008 *ADVANCE DIRECTIVE NOT ON FILE 10/06/2016 *COLORECTAL CANCER SCREENING (COLONOSCOPY 10 YEARS; SIGMOIDOSCOPY 5 YEARS; COLOGUARD 3 YEARS; FOBT 1 YEAR),AGES 50-75 07/11/2017 PNEUMOCOCCAL ADULT 65 YRS AN D OVER (2 of 2 - PCV13) 04/27/2018 04/27/2017 LUNG CANCER SCREENING YEARLY -USE SMARTSET 11870 06/23/2018 06/23/2017 DIABETES SCREEN EVERY 3 YRS- AGE 45 AND ABOVE 06/23/2020 06/23/2017, 06/18/2017, 05/17/2017, Additional history exists Influenza Vaccine (FLU shot) Completed 11/2016, 03/12/2009, 04/24/2006, Additional history exists as of this encounter Implants Not on fileas of this encounter Visit Diagnoses Diagnosis Severe chronic obstructive p ulmonary disease (HCC) - Primary Chronic airway obstruction, not elsewhere classified in this encounter Insurance Payer Benefit Plan / Group Subscriber ID Type Phone Address MEDICARE MEDICARE A AND B [id number] [place] as of this encounter
--- OUTSIDE RECORDS SUMMARY | 2023-04-08 23:29 | External Medical Summary | Summary of Care ---
Author Name Unknown Organization [place] [address] Phone Care Team Providers Care Crossing Watchman Name Role Phone Abram Owens MD Primary Care Provider Reason for Visit * Reason Comments HOSPITAL FOLLOW-UP [facility], COPD exacerbat ion. Pt states feeling "always tired and run down". Encounter Details Date Type Department Care Team Description 10/20/2017 Office Visit Internal Medicine [address] [address] Paul Ramirez MD [address] [place] [id number] Chronic obstructive pulmonary disease with acute lower respiratory infection (HCC)*;Severe chronic obstructive pulmonary disease (HCC);History of tobacco use;Need for pneumococcal vaccination;Need for vaccination for DTaP Allergies No Known Allergiesas of this encounter [...] with food 30 Tab 5 06/25/2017 Active albuterol-ipratrop ium (DUONEB) 2.5-0.5 MG/3ML nebulizer solutionIndication s:Severe chronic obstructive pulmonary disease (HCC) Inhale 3 mL by mouth every 4 hours as needed for Shortness of Breath or Wheezing. 30 Vial 2 10/12/2017 Active fluticasone-salmet umberto (ADVAIR DISKUS) 250-50 MCG/DOSE inhalerIndications :SOB (shortness of breath) Inhale 1 Puff by mouth 2 times a day. 3 Disk Dosing Unit 1 10/14/2017 Active albuterol sulfate (PROVENTIL) (2.5 MG/3ML) 0.083% nebulizer solutionIndication s:Severe chronic obstructive pulmonary disease (HCC),COPD exacerbation ([facility]) Inhale 1 Vial via nebulizer every 4 hours as needed for Wheezing or Shortness of Breath. Please bill under [facility]. 25 Vial 6 09/10/2017 8 Discontinued PredniSONE (DELTASONE) 10 MG TabletIndications: Severe chronic obstructive pulmonary disease (HCC) 4 tabs x 4 days, 3 tabs x 4 days, 2 tabs x 4 days then 1 tablet every day with food 66 Tab 0 10/14/2017 8 Discontinued as of this encounter Active Problems Problem Noted Date History of tobacco use 10/20/2017 Pneumonia 06/13/2017 Overview: left basal infiltrate Severe chronic obstructive pulmonary dis ease (HCC) 10/28/2016 Overview: severe by ATS criteria. significant response after bronchodilator ADVANCE DIRECTIVE INFORMATION 02/01/2008 Overview: No, Advance Directive brochure given to patient. Loss of teeth due to trauma, extraction, or periodontal disease as of this encounter Resolved Problems Problem Noted Date Resolved Date COPD exacerbation (HCC) 10/16/2016 05/03/20 17 Inflammation [...] Vital Sign Reading Time Taken Blood Pressure 150/80 10/20/2017 1:34 PM EDT Pulse 88 10/20/2017 1:34 PM EDT Temperature 36.5 C (97.7 F) 10/20/2017 1 :34 PM EDT Respiratory Rate 22 10/20/2017 1:34 PM EDT Oxygen Saturation 97% 10/20/2017 1:3 4 PM EDT Inhaled Oxygen Concentration - - Weight 60.6 kg (133 lb 9.6 oz) 10/21/19 18 1:34 PM EDT Height 171.6 cm (5' 7.56") 10/20/2017 1 :34 PM EDT Body Mass Index 20.58 10/20/2017 1:34 PM EDT in this encounter Progress Notes * Sena Duenas LPN - 10/20/2017 2:22 PM EDT Pre-Administration Time Out Procedure Performed: Yes Patient Identified (Ask Name/Date of ): Yes Does the patient have a fever greater than 101 degrees today? No Patient allergic to latex? No Has the patient ever fainted after receiving an injection? No VFC Stock: No Immunization(s) verified: Yes, Immunization Name: Prevnar and Tdap (Boostrix), VIS Sheet(s) given: Yes Verified Side and Site: Yes Verified Shot(s) with Parent(s)/Patient: Yes * Paul Ramirez MD - 10/20/2017 1:57 PM EDT Formatting of this note may be different from the original. Subjective: Jer Abreu Jr. is a 76 year old male Chief Complaint Patient presents with HOSPITAL FOLLOW-UP [facility], COPD exacerbation. Pt states feeling "always tired and run down". HPI: Jer Abreu Jr. is a 76 year old male who presents with a chief complaint of HOSPITAL FOLLOW-UP ([facility], COPD exacerbation. Pt states feeling "always tired and run down". ) Here for recheck, accompanies. Here for recheck after 9 days IP stay at [facility], medical records retrieved and reviewed Treated for bronchitis, infiltrate versus consolidation of the left base noted on CT, advanced calcifications of the thoracic aorta and right common carotid. There was fall prior to admission at home with persistent right chest wall pain, rib imagining for fracture was negative. Seen by network applications specialist. Responded to pulmonary toliet, IVF, antibiotics and corticosteroids Long history of oxygen dependence with 2 LPM nasal cannula Reviewed previous ABGs, doesn't retain CO2. Previous smoker, stopped 1.5 years ago, still smokes but not in the house. Feeling better today, still tired and feels run down most of the time Patient Active Problem List Diagnosis Code ADVANCE DIRECTIVE INFORMATION Loss of teeth due to trauma, extraction, or periodontal disease 525.1 Severe chronic obstructive pulmonary disease (HCC) J44.9 Pneumonia J18.9 History of tobacco use Z87.891 Current Outpatient Prescriptions Medication Sig Dispense Refill albuterol (PROAIR HFA) 108 (90 BASE) MCG/ACT inhaler Inhale 2 Puffs by mouth every 4 hours as needed for Shortness of Breath or Wheezing. 1 Inhaler 5 albuterol-ipratropium (DUONEB) 2.5-0.5 MG/3ML nebulizer solution Inhale 3 mL by mouth every 4 hours as needed for Shortness of Breath or Wheezing. 30 Vial 2 fluticasone-salmeterol (ADVAIR DISKUS) 250-50 MCG/DOSE inhaler Inhale 1 Puff by mouth 2 times aday. 3 Disk Dosing Unit 1 folic acid 1 MG Tablet Take 1 mg by mouth daily. MEDICAL INSTRUCTIONS Nebulizer and tubing 1 Each 1 oxygen GAS Use 2 L/min(Oxygen) as directed continuous. Indications: Inc to 4LPM with ambulation/exertion PredniSONE (DELTASONE) 10 MG Tablet One daily with food 30 Tab 5 roflumilast (DALIRESP) 500 MCG Tablet Take 1 Tab by mouth daily. (Patient taking differently: Take 500 mcg by mouth daily. Indications: [facility] has provided samples for pt-he can get more when needed.) 30 Tab 5 THIAMINE (VITAMIN B-1) 100 MG Tablet Take 100 mg by mouth daily. Review of patient's allergies indicates: No Known Allergies Past Medical History: Diagnosis Date Acute exacerbation of COPD with asthma ([facility]) 04/23/2017 [facility] Inflammation of sacroiliac joint ([facility]) 04/24/05 Loss of teeth due to trauma, extraction, or periodontal disease Other abnormal glucose 04/23/05 glucose 156 Other abnormal glucose 02/22/08 glucose 167 Other disorders of vitreous 12/05 Posterior vitreous detachment OS Other specified disorders of rotator cuff syndrome of shoulder and allied disorders 05/10 right shoulder Pneumonia 06/13/2017 left basal infiltrate Pneumonia due to Pseudomonas ([facility]) 05/20/2017 Severe chronic obstructive pulmonary disease ([facility]) 10/28/2016 severe by ATS criteria. significant response [...] is a 76 year old male BP 150/80 | Pulse 88 | Temp (Src) 97.7 (Tympanic) | Resp 22 | Ht 5' 7.56" (1.716m) | Wt 133 lbs 9.6oz (60.601kg) | BMI 20.58 kg/m | BSA 1.7 m | SaO2 97% General: alert, well nourished, well developed, cooperative, dyspneic, flushed, malnourished, mild distress and smiling Oropharynx: no exudate, no erythema, lips, buccal mucosa, and tongue normal and mucous membranes are moist Neck: supple, no adenopathy, no bruits, thyroid normal size, non-tender, without nodularity, no stridor, non-tender Heart: regular rate & rhythm, no murmurs, no gallops and heart sounds are distant and muffled Lungs: chest symmetric with normal AP diameter, no chest deformities noted, no chest wall tenderness, coarse sounds heard, decreased breath sounds, prolonged expiratory phase, no rales rhonchi or wheezing Extremities: no joint deformities, effusion, or inflammation, no edema, no clubbing, no cyanosis ASSESSMENT/PLAN: 76 year male with an episode of COPD exacerbation, oxygen dependent and improved with treatment. He will continue continous oxygen at 2 LPM and daily prednisone 10 mg along with his inhalers. Strongly urged abstaining from second hand cigarette smoke and limit alcohol to one a day. Update to pneumococcal and boostrix vaccine. J44.0 Chronic obstructive pulmonary disease with acute lower respiratory infection (hcc) (primary encounter diagnosis) J44.9 Severe chronic obstructive pulmonary disease (hcc) Z87.891 History of tobacco use Z23 Need for pneumococcal vaccination Plan: Pneumococcal vacc, pcv13, high risk adults, im Z23 Need for vaccination for dtap Plan: Tdap (age 10 and older)(boostrix) Paul Ramirez MD [facility] [address] [place] [address] in this encounter Nursing Notes * Sena Duenas LPN - 10/20/2017 1:38 PM EDT Formatting of this note may be different from the original. Chief Complaint Patient presents with [facility] FOLLOW[facility]UP [facility], COPD exacerbation. in this encounter Plan of Treatment Upcoming Encounters Date Type Specialty Care Team Description 10/27/2017 Office Visit Internal Medicine Abram Owens MD [address] [place] [address] [place] [address] [phone] 12/27/2017 Pharmacy Timber Deadener, Pharmacy Reimbursement [address] [place] [address] [phone] 01/03/2018 Pharmacy Timber Deadener, Pharmacy Reimbursement [address] [place] [address] [phone] Health Maintenance Due Date Last Done Comments DTaP,Tdap,and Td Vaccines (1 - Tdap) 1959 LIPID SCREEN EVERY 5 YRS-MEN AGE 35-75 02/16/2013 02/17/2008 *COLORECTAL CANCER SCREENING (COLONOSCOPY 10 YEARS; SIGMOIDOSCOPY 5 YEARS; COLOGUARD 3 YEARS; FOBT 1 YEAR),AGES 50-75 07/11/2017 PNEUMOCOCCAL ADULT 65 YRS AN D OVER (2 of 2 - PCV13) 04/27/2018 04/27/2017 LUNG CANCER SCREENING YEARLY -USE SMARTSET [id number] 06/23/2018 06/23/2017 DIABETES SCREEN EVERY 3 YRS- AGE 45 AND ABOVE 06/23/2020 06/23/2017, 06/18/2017, 05/17/2017, Additional history exists Influenza Vaccine (FLU shot) Completed 11/2016, 03/12/2009, 04/24/2006, Additional history exists as of this encounter Implants Not on fileas of this encounter Visit Diagnoses Diagnosis Chronic obstructive pulmonar y disease with acute lower respiratory infection (HCC) - Primary Obstructive chronic bronchitis with exacerbation Severe chronic obstructive p ulmonary disease (HCC) Chronic airway obstruction, not elsewhere classified History of tobacco use Personal history of tobacco use, presenting hazards to health Need for pneumococcal vaccin ation Need for prophylactic vaccination against streptococcus pneumoniae (pneumococcus) Need for vaccination for DTa P Need for prophylactic vaccination with combined glztgxcnyr-frysptt-aoxtwlkwy (DTP) vaccine in this encounter
--- OUTSIDE RECORDS SUMMARY | 2023-04-08 23:29 | External Medical Summary | Summary of Care ---
Author Name Unknown Organization [place] [address] Phone Care Team Providers Care General Repairer Name Role Phone Abram Owens MD Primary Care Provider Reason for Visit * Reason Comments MEDICATION QUESTION Encounter Details Date Type Department Care Team Description 10/20/2017 Pharmacy Pharmacy, [place] [address] [place], [place] [id number] Coordinator, Pharmacy [facility] [address] [place], [place] [id number] Severe chronic obstructive pulmonary disease (HCC)* Allergies [...] ion 04/28/2017 Active roflumilast (DALIRESP) 500 MCG TabletIndications:Ximena mckenna chronic obstructive pulmonary disease ([facility]) Take 1 Tab by mouth daily. 30 Tab 5 05/25/2017 Active PredniSONE (DELTASONE) 10 MG TabletIndications:Ximena mckenna chronic obstructive pulmonary disease ([facility]) One daily with food 30 Tab 5 06/25/2017 Active albuterol sulfate (PROVENTIL) (2.5 MG/3ML) 0.083% nebulizer solutionIndications :Severe chronic obstructive pulmonary disease ([facility]),COPD exacerbation ([facility]) Inhale 1 Vial via nebulizer every 4 hours as needed for Wheezing or Shortness of Breath. Please bill under Part [facility]. 25 Vial 6 09/10/2017 Active albuterol-ipratropi um (DUONEB) 2.5-0.5 MG/3ML nebulizer solutionIndications :Severe chronic obstructive pulmonary disease ([facility]) Inhale 3 mL by mouth every 4 hours as needed for Shortness of Breath or Wheezing. 30 Vial 2 10/12/2017 Active PredniSONE (DELTASONE) 10 MG TabletIndications:Ximena mckenna chronic obstructive pulmonary disease ([facility]) 4 tabs x 4 days, 3 tabs x 4 days, 2 tabs x 4 days then 1 tablet every day with food 66 Tab 0 10/14/2017 10/26/2017 Active fluticasone-salmete rol (ADVAIR DISKUS) 250-50 MCG/DOSE inhalerIndications: SOB (shortness of breath) Inhale 1 Puff by mouth 2 times a day. 3 Disk Dosing Unit 1 10/14/2017 Active as of this encounter Active Problems Problem Noted Date Pneumonia 06/13/2017 Overview: left basal infiltrate Severe chronic obstructive pulmonary dis ease ([facility]) 10/28/2016 Overview: severe by ATS criteria. significant response after bronchodilator ADVANCE DIRECTIVE INFORMATION 02/01/2008 Overview: No, Advance Directive brochure given to patient. Tobacco use disorder 04/22/2005 Loss of teeth due to trauma, extraction, or periodontal disease as of this encounter Resolved Problems Problem Noted Date Resolved Date COPD exacerbation ([facility]) 10/16/2016 05/03/20 17 Inflammation of sacroiliac joint ([facility]) 5 03/12/2017 Other abnormal glucose 04/23/2005 7 Overview: glucose 156 SPRAIN SACROILIAC 03/19/2005 [...] Progress Notes * Chele Gallardo OSA - 08/24/2017 10:[address] refill: Company: [employer]Phone number [phone] Id# [id number] Rx: Daliresp Dose:500 MCG Quantity: 90 Provider: Abram Owens MD Provider Id#[id number] Refill # 1 of 3 Next Refill 12/21/2017 Enrollment Expires 06/06/2018 [employer] 08/24/2017 10:11 AM A refill order was placed for Daliresp from the [employer] program. A 90 day supply will be shipped to [address] [place] [address] and arrive in 7 to 10 business days. The next refill order is due 01/03/2018. [employer]AH [employer] 10/20/2017 9:10 AM in this encounter Plan of Treatment Upcoming Encounters Date Type Specialty Care Team Description 10/20/2017 Office Visit Internal Medicine Paul Ramirez MD [address] [place] [address] [place] [address] [phone] 10/27/2017 Office Visit Internal Medicine Abram Owens MD [address] [place] [address] [place] [address] [phone] 12/27/2017 Pharmacy Drupal Developer, Pharmacy Reimbursement [address] [facility] [place] [address] [phone] Health Maintenance Due Date Last Done Comments DTaP,Tdap,and Td Vaccines (1 - Tdap) 1959 LIPID SCREEN EVERY 5 YRS-MEN AGE 35-75 02/16/2013 02/17/2008 *COLORECTAL CANCER SCREENING (COLONOSCOPY 10 YEARS; SIGMOIDOSCOPY 5 YEARS; COLOGUARD 3 YEARS; FOBT 1 YEAR),AGES 50-75 07/11/2017 PNEUMOCOCCAL ADULT 65 YRS AN D OVER (2 of 2 - PCV13) 04/27/2018 04/27/2017 LUNG CANCER SCREENING YEARLY -USE SMARTSET [id number] 06/23/2018 06/23/2017 DIABETES SCREEN EVERY 3 YRS- [...]
--- OUTSIDE RECORDS SUMMARY | 2023-04-08 23:29 | External Medical Summary | Summary of Care ---
Author Name Unknown Organization [place] [address] Phone Care Team Providers Care Corrections Nurse Name Role Phone Abram Owens MD Primary Care Provider Encounter Details Date Type Department Care Team Description 10/12/2017 Scan Encounter Unspecified Department <No scans attached> [...] 3 Disk Dosing Unit 1 07/28/2017 Active albuterol sulfate (PROVENTIL) (2.5 MG/3ML) 0.083% nebulizer solutionIndications: Severe chronic obstructive pulmonary disease ([facility]),COPD exacerbation ([facility]) Inhale 1 Vial via nebulizer every 4 hours as needed for Wheezing or Shortness of Breath. Please bill under [facility]. 25 Vial 6 09/10/2017 Active albuterol-ipratropiu m (DUONEB) 2.5-0.5 MG/3ML nebulizer solutionIndications: Severe chronic obstructive pulmonary disease ([facility]) Inhale 3 mL by mouth every 4 hours as needed for Shortness of Breath or Wheezing. 30 Vial 2 10/12/2017 Active as of this encounter Active Problems Problem Noted Date Pneumonia 06/13/2017 Overview: left basal infiltrate Severe chronic obstructive pulmonary dis ease ([facility]) 10/28/2016 Overview: severe by ATS criteria. significant response after bronchodilator ADVANCE DIRECTIVE INFORMATION 02/01/2008 Overview: No, Advance Directive brochure given to patient. Tobacco use disorder 04/22/2005 Loss of teeth due to trauma, extraction, or periodontal disease as of this encounter Resolved Problems Problem Noted Date Resolved Date COPD exacerbation ([facility]) 10/16/2016 05/03/20 [...] Date Type Specialty Care Team Description 10/20/2017 Pharmacy Warehouseman, Pharmacy Reimbursement [address] [facility] [place] [address] [phone] 10/20/2017 Office Visit Internal Medicine Paul Ramirez MD [address] [place] [address] [place] [address] [phone] 10/27/2017 Office Visit Internal Medicine Arbam Owens MD [address] [place] [address] [place] [address] [phone] 12/27/2017 Pharmacy Warehouseman, Pharmacy Reimbursement [address] [facility] [place] [address] [phone] Health Maintenance Due Date Last Done Comments DTaP,Tdap,and Td Vaccines (1 - Tdap) 1959 LIPID SCREEN EVERY 5 YRS-MEN AGE 35-75 02/16/2013 02/17/2008 *COLORECTAL CANCER SCREENING (COLONOSCOPY 10 YEARS; SIGMOIDOSCOPY 5 YEARS; COLOGUARD 3 YEARS; FOBT 1 YEAR),AGES 50-75 07/11/2017 PNEUMOCOCCAL ADULT 65 YRS AN D OVER (2 of 2 - PCV13) 04/27/2018 04/27/2017 LUNG CANCER SCREENING YEARLY -USE SMARTSET [id number] 06/23/2018 06/23/2017 DIABETES SCREEN EVERY 3 YRS- AGE 45 AND ABOVE 06/23/2020 06/23/2017, 06/18/2017, 05/17/2017, Additional history exists Influenza Vaccine (FLU shot) Completed 11/2016, 03/12/2009, 04/24/2006, Additional history exists as of this encounter Implants Not on fileas of this encounter
--- OUTSIDE RECORDS SUMMARY | 2023-04-08 23:29 | External Medical Summary | Summary of Care ---
Author Name Unknown Organization [place] [address] Phone Care Team Providers Care Flight Readiness Technician Name Role Phone Abram Owens MD Primary Care Provider [phone] Reason for Referral * Evaluate & Treat - Unlimited Visits (Within 10 days (routine)) Status Reason Specialty Diagnoses / Procedures Referred By Contact Referred To Contact Pending Review Specialty Services Required Ophthalmology Diagnoses Blind spot scotoma, right Abram Owens MD [address] [place] [address] [place] [address] Reason for Visit * Reason Comments STATUS CHECK Encounter Details Date Type Department Care Team Description 10/27/2017 Office Visit Internal Medicine [address] [address] Abram Owens MD [address] [place] [address] [place] [address] [phone] Severe chronic obstructive pulmonary disease (HCC)*;Blind spot scotoma, right Allergies No Known Allergiesas of this encounter [...] Vital Sign Reading Time Taken Blood Pressure 148/62 10/27/2017 1:43 PM EDT Pulse 96 10/27/2017 1:43 PM EDT Temperature 36.9 C (98.4 F) 10/27/2017 1 :43 PM EDT Respiratory Rate 20 10/27/2017 1:43 PM EDT Oxygen Saturation - - Inhaled Oxygen Concentration - - Weight 58.4 kg (128 lb 11.2 oz) 018 1:43 PM EDT Height - - Body Mass Index 19.82 10/27/2017 1:43 PM EDT in this encounter Progress Notes * Abram Owens MD - 10/27/2017 1:51 PM EDT Formatting of this note may be different from the original. Nursing Notes: Shantelle Jacobo RN 10/27/17 8093 Signed 6 month check. Discharged from [facility] 10/12. Feels weak and shaky. He says there is a blind spot in his right eye. He wonders if the meds are doing this. He uses O2 all the time. Past Medical History: Diagnosis Date Acute exacerbation of COPD with asthma ([facility]) 04/23/2017 [facility] Inflammation of sacroiliac joint ([facility]) 04/24/05 Loss of teeth due [...] Take 500 mcg by mouth daily. Indications: [facility] has provided samples for pt-he can get more when needed.) 30 Tab 5 THIAMINE (VITAMIN B-1) 100 MG Tablet Take 100 mg by mouth daily. O: Blood pressure 148/62, pulse 96, temperature 36.9 C (98.4 F), resp. rate 20, weight 58.4 kg (128 lb 11.2 oz). General appearance: well developed, well nourished and in no acute distress. Neck is supple withoutadenopathy or thyromegaly. Chest is symmetrical and moves normally. The lungs are clear without wheezes, rales, rhonchi or rubs, and the heart is regular without murmurs or gallops, or ectopy. PMI not displaced. 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 No changes. in this encounter Nursing Notes * Shantelle Jacobo RN - 10/27/2017 1:44 PM EDT 6 month check. Discharged from [facility] 10/12. Feels weak and shaky. in this encounter Plan of Treatment Upcoming Encounters Date Type Specialty Care Team Description 10/27/2017 Office Visit Internal Medicine Abram Owens MD [address] [place] [address] ABRAHAM Burnham [address] Severe chronic obstructive pulmonary disease (HCC)*;Blind spot scotoma, right 12/27/2017 Pharmacy Sales Mgr, Pharmacy Reimbursement [address] [place] [facility] [place] [address] [phone] 01/03/2018 Pharmacy Sales Mgr, Pharmacy Reimbursement [address] [place] [facility] [place] [place] [address] [phone] Scheduled Referrals Name Priority Associated Diagnoses Order S chedule OPHTHALMOLOGY REFERRAL OP Within 10 days (routine) Blind spot scotoma, right Ordered: 10/27/2017 Health Maintenance Due Date Last Done Comments LIPID SCREEN EVERY 5 YRS-MEN AGE 35-75 02/16/2013 02/17/2008 *COLORECTAL CANCER SCREENING (COLONOSCOPY 10 YEARS; SIGMOIDOSCOPY 5 YEARS; COLOGUARD 3 YEARS; FOBT 1 YEAR),AGES 50-75 07/11/2017 LUNG CANCER SCREENING YEARLY -USE SMARTSET [id number] 06/23/2018 06/23/2017 DIABETES SCREEN EVERY 3 YRS- [...] Primary Chronic airway obstruction, not elsewhere classified Blind spot scotoma, right in this encounter
--- OUTSIDE RECORDS SUMMARY | 2023-04-08 23:29 | External Medical Summary | Summary of Care ---
Author Name Unknown Organization [place] [address] Phone Care Team Providers Care Stumper Feller Name Role Phone Abram Quiroz MD Primary Care Provider Reason for Visit * Reason Comments MEDICATION REFILL Encounter Details Date Type Department Care Team Description 10/14/2017 Refill Internal Medicine [address] [address] OhsKhadijah RN [address] [place] [address] [phone] Severe chronic obstructive pulmonary disease (HCC)* Allergies [...] s:Severe chronic obstructive pulmonary disease (HCC),COPD exacerbation ([facility]) Inhale 1 Vial via nebulizer every 4 hours as needed for Wheezing or Shortness of Breath. Please bill under Part B [facility]. 25 Vial 6 09/10/2017 Active albuterol-ipratrop ium (DUONEB) 2.5-0.5 MG/3ML nebulizer solutionIndication s:Severe chronic obstructive pulmonary disease (HCC) Inhale 3 mL by mouth every 4 hours as needed for Shortness of Breath or Wheezing. 30 Vial 2 10/12/2017 Active PredniSONE (DELTASONE) 10 MG TabletIndications: Severe chronic obstructive pulmonary disease (HCC) 4 tabs x 4 days, 3 tabs x 4 days, 2 tabs x 4 days then 1 tablet every day with food 66 Tab 0 10/14/2017 8 Active fluticasone-salmet umberto (ADVAIR DISKUS) 250-50 MCG/DOSE inhalerIndications :SOB (shortness of breath) Inhale 1 Puff by mouth 2 times a day. 3 Disk Dosing Unit 1 07/28/2017 8 Discontinued as of this encounter Active Problems Problem Noted Date Pneumonia 06/13/2017 Overview: left basal infiltrate Severe chronic obstructive pulmonary dis ease ([facility]) 10/28/2016 Overview: severe by ATS criteria. significant response after bronchodilator ADVANCE DIRECTIVE INFORMATION 02/01/2008 Overview: No, Advance Directive brochure given to patient. Tobacco use disorder 04/22/2005 Loss of teeth due to trauma, extraction, or periodontal disease as of this encounter Resolved Problems Problem Noted Date Resolved Date COPD exacerbation ([facility]) 10/16/2016 05/03/20 17 Inflammation of sacroiliac joint ([facility]) 5 03/12/2017 Other abnormal glucose [...] Telephone Encounter - Abram Quiroz MD - 10/14/2017 1:18 PM EDT Signed Prescriptions: Disp Refills PredniSONE (DELTASONE) 10 MG Tablet 66 Tab 0 Si tabs x 4 days, 3 tabs x 4 days, 2 tabs x 4 days then 1 tablet every day with food Authorizing Provider: ABRAM QUIROZ * Telephone Encounter - Abram Quiroz MD - 10/14/2017 1:18 PM EDT Signed Prescriptions: Disp Refills PredniSONE (DELTASONE) 10 MG Tablet 66 Tab 0 Si tabs x 4 days, 3 tabs x 4 days, 2 tabs x 4 days then 1 tablet every day with food Authorizing Provider: ABRAM QUIROZ * Telephone Encounter - Abram Quiroz MD - 10/14/2017 1:18 PM EDT ok * Telephone Encounter - Khadijah Rehman RN - 10/14/2017 12:09 PM EDT Daniel was discharged from [facility] 10-12-17 on a Prednisone taper. He didn't get the script filled he was given at discharge and is using from his supply he had at home. Pended an order with the taper and then back to 1 tab daily thereafter. Otherwise he will "run out". Thanks, Khadijah Rehman, RN in this encounter Plan of Treatment Upcoming Encounters Date Type Specialty Care Team Description 10/20/2017 Pharmacy Electronics Detail Draftsperson, Pharmacy Reimbursement [address] [place] [address] [phone] 10/20/2017 Office Visit Internal Medicine Paul Ramirez MD [address] [place] [address] [place] [address] [phone] 10/27/2017 Office Visit Internal Medicine Abram Quiroz MD [address] [place] [address] ABRAHAM Burnham [address] [phone] 12/27/2017 Pharmacy Electronics Detail Draftsperson, Pharmacy Reimbursement [address] [place] [address] [phone] Health Maintenance Due Date Last Done Comments DTaP,Tdap,and Td Vaccines (1 - Tdap) 1959 LIPID SCREEN EVERY 5 YRS-MEN AGE 35-75 02/16/2013 02/17/2008 *COLORECTAL CANCER SCREENING (COLONOSCOPY 10 YEARS; SIGMOIDOSCOPY 5 YEARS; COLOGUARD 3 YEARS; FOBT 1 YEAR),AGES 50-75 07/11/2017 PNEUMOCOCCAL ADULT 65 YRS AN D OVER (2 of 2 - PCV13) 04/27/2018 04/27/2017 LUNG CANCER SCREENING YEARLY -USE SMARTSET [id number] 06/23/2018 06/23/2017 DIABETES SCREEN EVERY 3 YRS- [...]
--- OUTSIDE RECORDS SUMMARY | 2023-04-08 23:29 | External Medical Summary | Summary of Care ---
Author Name Unknown Organization [place] [address] Phone Care Team Providers Care Admitting Officer Name Role Phone Abram Owens MD Primary Care Provider Encounter Details Date Type Department Care Team Description 10/20/2017 Clip Bolter And WrapperTopography Technician Medicine [address] [address] OhsKhadijah RN [address] [place] [address] [place] [address] [phone] Chronic obstructive pulmonary disease with acute lower respiratory infection (HCC)*;Pneumonia due to Pseudomonas (HCC) Allergies No Known Allergiesas of this [...] s:Severe chronic obstructive pulmonary disease (HCC),COPD exacerbation ([facility]) Inhale 1 Vial via nebulizer every [...] infiltrate Severe chronic obstructive pulmonary dis ease ([facility]) 10/28/2016 Overview: severe by ATS criteria. significant response after bronchodilator ADVANCE DIRECTIVE INFORMATION 02/01/2008 Overview: No, Advance Directive brochure given to patient. Loss of teeth due to trauma, extraction, or periodontal disease as of this encounter Resolved Problems Problem Noted Date Resolved Date COPD exacerbation ([facility]) 10/16/2016 05/03/20 17 Inflammation of sacroiliac joint ([facility]) 5 03/12/2017 Other abnormal glucose 04/23/2005 [...] Progress Notes * Khadijah Rehman RN - 10/20/2017 3:45 PM EDT Week 1 SULEMA for hospital stay for COPD exacerbation. He is here in the office today for his hospital f/u with Dr Ramirez. He says he is feeling better. His breathing still isn't great but better than it had been. He has his 02 on. He keeps his Albuterol inhaler in his chest pocket when he leaves home. Uses the nebulizer at home as directed. He is eating ok. Still a couple more days of Prednisone taper and then he will go back on 10 mg daily. His accompanies him today. No new medicines were ordered today. He brought in what he takes athome. I gave him a spacer to use with his inhaler but he tells me he does ok without it. CM will f/u again next week. He is to call me with any concern, questions or changes. Khadijah Rehman RN in this encounter Plan of Treatment Upcoming Encounters Date Type Specialty Care Team Description 10/27/2017 Office Visit Internal Medicine Abram Owens MD [address] [place] [address] ABRAHAM Burnham [address] [phone] 12/27/2017 Pharmacy Honey Liquefier, Pharmacy Reimbursement [address] [place] [address] [phone] 01/03/2018 Pharmacy Honey Liquefier, Pharmacy Reimbursement [address] [place] [address] [phone] Health Maintenance Due Date Last Done Comments DTaP,Tdap,and Td Vaccines (1 - Tdap) 1959 LIPID SCREEN EVERY 5 YRS-MEN AGE 35-75 02/16/2013 02/17/2008 *COLORECTAL CANCER SCREENING (COLONOSCOPY 10 YEARS; SIGMOIDOSCOPY 5 YEARS; COLOGUARD 3 YEARS; FOBT 1 YEAR),AGES 50-75 07/11/2017 PNEUMOCOCCAL ADULT 65 YRS AN D OVER (2 of 2 - PCV13) 04/27/2018 04/27/2017 LUNG CANCER SCREENING YEARLY -USE SMARTSET [id number] 06/23/2018 06/23/2017 DIABETES SCREEN EVERY 3 YRS- AGE 45 AND ABOVE 06/23/2020 06/23/2017, 06/18/2017, 05/17/2017, Additional history exists Influenza Vaccine (FLU shot) Completed 11/2016, 03/12/2009, 04/24/2006, Additional history exists as of this encounter Implants Not on fileas of this encounter Visit Diagnoses Diagnosis Chronic obstructive pulmonar y disease with acute lower respiratory infection (HCC) - Primary Obstructive chronic bronchitis with exacerbation Pneumonia due to Pseudomonas (HCC) Pneumonia due to Pseudomonas in this encounter
--- OUTSIDE RECORDS SUMMARY | 2023-04-08 23:29 | External Medical Summary | Summary of Care ---
Author Name Unknown Organization [place] [address] Phone Care Team Providers Care Grassland Conservationist Name Role Phone Abram Owens MD Primary Care Provider Reason for Visit * Reason Comments APPOINTMENT Ophthalmology Encounter Details Date Type Department Care Team Description 10/27/2017 Telephone Internal Medicine [address] [address] Abram Owens MD [address] [place] [address] [phone] APPOINTMENT (Ophthalmology ) Allergies No Known Allergiesas of this encounter [...] left basal infiltrate COPD exacerbation ([facility]) 10/16/2016 05/03/20 17 Inflammation of sacroiliac joint ([facility]) 5 03/12/2017 Other abnormal glucose 04/23/2005 7 [...] encounter Miscellaneous Notes * Telephone Encounter - Silva Franklin, JAH - 10/27/2017 2:11 PM EDT Pt will make his own eye appt in this encounter Plan of Treatment Upcoming Encounters Date Type Specialty Care Team Description 10/27/2017 Office Visit Internal Medicine Abram Owens MD [address] [place] [address] ABRAHAM Burnham [address] [phone] Severe chronic obstructive pulmonary disease (HCC)*;Blind spot scotoma, right 12/27/2017 Pharmacy Hotel Valet Attendant, Pharmacy Reimbursement [address] [place] [address] 01/03/2018 Pharmacy Hotel Valet Attendant, Pharmacy Reimbursement [address] [place] [address] 02/28/2018 Office Visit Internal Medicine Abram Owens MD [address] [place] [address] ABRAH[place] Burnham [address] [phone] Health Maintenance Due Date Last Done Comments LIPID SCREEN EVERY 5 YRS-MEN AGE 35-75 02/16/2013 02/17/2008 *COLORECTAL CANCER SCREENING (COLONOSCOPY 10 YEARS; SIGMOIDOSCOPY 5 YEARS; COLOGUARD 3 YEARS; FOBT 1 YEAR),AGES 50-75 07/11/2017 LUNG CANCER SCREENING YEARLY -USE SMARTSET 33084 06/23/2018 06/23/2017 DIABETES SCREEN EVERY 3 YRS- AGE 45 AND ABOVE 06/23/2020 06/23/2017, 06/18/2017, 05/17/2017, Additional history exists DTaP,Tdap,and Td Vaccines (2 - Td) 10/21/20272017 Influenza Vaccine (FLU shot) Completed 11/2016, 03/12/2009, 04/24/2006, Additional history exists PNEUMOCOCCAL ADULT 65 YRS AND OVER Completed 2017, 04/27/2017 as of this encounter Implants Not on fileas of this encounter
--- OUTSIDE RECORDS SUMMARY | 2023-04-08 23:29 | External Medical Summary | Summary of Care ---
Author Name Unknown Organization [place] [address] Phone Care Team Providers Care Covered Button Maker Name Role Phone Abram Owens MD Primary Care Provider [phone] Encounter Details Date Type Department Care Team Description 10/08/2017 Scan Encounter Unspecified Department <No scans attached> [...] nebulizer solutionIndications: Severe chronic obstructive pulmonary disease ([facility]),COPD exacerbation ([facility]) Inhale 1 Vial via nebulizer every 4 hours as needed for Wheezing or Shortness of Breath. Please bill under Part B [facility]. 25 Vial 6 09/10/2017 Active as of this encounter Active Problems Problem Noted Date Pneumonia 06/13/2017 Overview: left basal infiltrate Severe chronic obstructive pulmonary dis ease ([facility]) 10/28/2016 Overview: severe by ATS criteria. significant response after bronchodilator ADVANCE DIRECTIVE INFORMATION 02/01/2008 Overview: No, Advance Directive brochure given to patient. Tobacco use disorder 04/22/2005 Loss of teeth due to trauma, extraction, or periodontal disease as of this encounter Resolved Problems Problem Noted Date Resolved Date COPD exacerbation ([facility]) 10/16/2016 05/03/20 17 Inflammation of sacroiliac joint ([facility]) 5 03/12/2017 Other abnormal glucose 04/23/2005 [...] Type Specialty Care Team Description 10/20/2017 Pharmacy Human Resources Psychologist, Pharmacy Reimbursement [address] [place] [address] [phone] 10/27/2017 Office Visit Internal Medicine Abram Owens MD [address] [place] [address] ABRAHAM Burnham [id number] 12/27/2017 Pharmacy Human Resources Psychologist, Pharmacy Reimbursement [address] [place] [address] [phone] Health Maintenance Due Date Last Done Comments DTaP,Tdap,and Td Vaccines (1 - Tdap) 1959 LIPID SCREEN EVERY 5 YRS-MEN AGE 35-75 02/16/2013 02/17/2008 *COLORECTAL CANCER SCREENING (COLONOSCOPY 10 YEARS; SIGMOIDOSCOPY 5 YEARS; COLOGUARD 3 YEARS; FOBT 1 YEAR),AGES 50-75 07/11/2017 PNEUMOCOCCAL ADULT 65 YRS AN D OVER (2 of 2 - PCV13) 04/27/2018 04/27/2017 LUNG CANCER SCREENING YEARLY -USE SMARTSET 66507 06/23/2018 06/23/2017 DIABETES SCREEN EVERY 3 YRS- AGE 45 AND ABOVE 06/23/2020 06/23/2017, 06/18/2017, 05/17/2017, Additional history exists Influenza Vaccine (FLU shot) Completed 11/2016, 03/12/2009, 04/24/2006, Additional history exists as of this encounter Implants Not on fileas of this encounter
--- OUTSIDE RECORDS SUMMARY | 2023-04-08 23:29 | External Medical Summary | Summary of Care ---
Author Name Unknown Organization [place] [address] Phone Care Team Providers Care Shredder Tender Peat Name Role Phone Abram Owens MD Primary Care Provider [phone] Reason for Visit * Reason Comments MED REQUEST Encounter Details Date Type Department Care Team Description 08/23/2017 Telephone Internal Medicine [address] [address] OhsKhadijah RN [address] [place] [address] [place] [address] MED REQUEST Allergies No Known Allergiesas of [...] s:Severe chronic obstructive pulmonary disease (HCC),COPD exacerbation (HCC) Inhale 1 Vial via nebulizer every 4 hours as needed for Wheezing or Shortness of Breath. 120 Vial 11 08/23/2017 Active albuterol sulfate (PROVENTIL) (2.5 MG/3ML) 0.083% nebulizer solutionIndication s:Severe chronic obstructive pulmonary disease (HCC),COPD exacerbation (HCC) Inhale 1 Vial via nebulizer every 4 hours as needed for Wheezing. 120 Vial 11 03/12/2017 8 Discontinued as of this encounter Active Problems Problem Noted Date Pneumonia 06/13/2017 Overview: left basal infiltrate Severe chronic obstructive pulmonary dis ease ([facility]) 10/28/2016 Overview: severe by ATS criteria. significant response after bronchodilator ADVANCE DIRECTIVE INFORMATION 02/01/2008 Overview: No, Advance Directive brochure given to patient. Tobacco use disorder 04/22/2005 Loss of teeth due to trauma, extraction, or periodontal disease as of this encounter Resolved Problems Problem Noted Date Resolved Date COPD exacerbation ([facility]) 10/16/2016 05/03/20 17 Inflammation of sacroiliac joint ([facility]) 5 03/12/2017 Other abnormal glucose 04/23/2005 7 Overview: glucose 156 [address] SA[address]ILIAC 03/19/2005 05/03/2017 Other specified disorders of rotator cuff syndrome of shoulder and allied disorders 05/23/2004 05/03/2017 Overview: right shoulder Other disorders of vitreous 06/07 as of this encounter Immunizations Name Dates Previously Given Next Due PPD 04/22/2005 Pneumococcal Polyvalent Vacc (Pneumovax) 11/21/2 017 Seasonal Influenza, Quadriva lent, No Preserve, [...] Telephone Encounter - Marylin Meyers, JAH - 09/08/2017 3:29 PM EDT Pt's daughter calling in asking for Fide to call pt regarding his medication. * Telephone Encounter - Shantelle Jacobo RN - 08/23/2017 3:20 PM EDT Last rx went to [facility] * Telephone Encounter - Khadijah Rehman RN - 08/23/2017 3:13 PM EDT Daniel needs his Albuterol for nebulizer refilled. Order needs faxed to [facility] in [place]. Thanks, Khadijah Rehman, RN in this encounter Plan of Treatment Upcoming Encounters Date Type Specialty Care Team Description 10/11/2017 Pharmacy Trim And Burr Operator, Pharmacy Reimbursement [address] [place] [address] [phone] 10/20/2017 Pharmacy Trim And Burr Operator, Pharmacy Reimbursement [address] [place] [address] [phone] 10/27/2017 Office Visit Internal Medicine Abram Owens MD [address] [place] [address] ABRAHAM Burnham [address] Health Maintenance Due Date [...] 04/27/2017 LUNG CANCER SCREENING YEARLY -USE SMARTSET 95519 06/23/2018 06/23/2017 DIABETES SCREEN EVERY 3 YRS- AGE 45 AND ABOVE 06/23/2020 06/23/2017, 06/18/2017, 05/17/2017, Additional history exists Influenza Vaccine (FLU shot) Completed 11/2016, 03/12/2009, 04/24/2006, Additional history exists as of this encounter Implants Not on fileas of this encounter Visit Diagnoses Diagnosis SOB (shortness of breath) Shortness of breath Severe chronic obstructive p ulmonary disease (HCC) Chronic airway obstruction, not elsewhere classified COPD exacerbation (HCC) Obstructive chronic bronchitis with exacerbation in this encounter Insurance Payer Benefit Plan / Group Subscriber ID Type Phone Address MEDICARE MEDICARE A AND B [id number] Medicare [place] as of this encounter
--- OUTSIDE RECORDS SUMMARY | 2023-04-08 23:29 | External Medical Summary | Summary of Care ---
Author Name Unknown Organization [place] [address] Phone Care Team Providers Care Peoplesoft Hcm Consultant Name Role Phone Abram Owens MD Primary Care Provider Reason for Visit * Reason Comments MEDICATION REFILL Encounter Details Date Type Department Care Team Description 09/10/2017 Refill Internal Medicine [address] [address] Abram Owens MD [address] [place] [address] [phone] Severe chronic obstructive pulmonary disease (HCC);COPD exacerbation (HCC) Allergies No Known Allergiesas of this [...] B MC. 25 Vial 6 09/10/2017 Active albuterol sulfate (PROVENTIL) (2.5 MG/3ML) 0.083% nebulizer solutionIndication s:Severe chronic obstructive pulmonary disease (HCC),COPD exacerbation (HCC) Inhale 1 Vial via nebulizer every 4 hours as needed for Wheezing or Shortness of Breath. Please bill under Part B [facility]. 120 Vial 11 09/09/2017 8 Discontinued as of this encounter Active [...] Date Resolved Date COPD exacerbation ([facility]) 10/16/2016 [...] Encounter - Shantelle Jacobo RN - 09/10/2017 8:37 AM EDT Pt needs small amount sent to local pharmacy. in this encounter Plan of Treatment Upcoming Encounters Date Type Specialty Care Team Description 10/11/2017 Pharmacy Associate Vice President, Pharmacy Reimbursement [address] [facility] [place] [address] 10/20/2017 Pharmacy Associate Vice President, Pharmacy Reimbursement [address] [place] [address] 10/27/2017 Office Visit Internal Medicine Abram Owens MD [address] [place] [address] ABRAHAM Burnham [address] Health Maintenance Due Date [...] 04/27/2017 LUNG CANCER SCREENING YEARLY -USE SMARTSET [id number] 06/23/2018 06/23/2017 DIABETES SCREEN EVERY 3 YRS- [...] Phone Address MEDICARE MEDICARE A AND B [id number] Medicare [place] as of this encounter
--- OUTSIDE RECORDS SUMMARY | 2023-04-08 23:29 | External Medical Summary | Summary of Care ---
Author Name Unknown Organization [place] [address] Phone Care Team Providers Care Pipe Organ Technician Name Role Phone Abram Owens MD Primary Care Provider Reason for Visit * Reason Comments MEDICATION PROBLEM Encounter Details Date Type Department Care Team Description 09/09/2017 Telephone Internal Medicine [address] [address] Abram Owens MD [address] [place] [address] [phone] MEDICATION PROBLEM Allergies No Known Allergiesas of [...] Part B MC. 120 Vial 11 09/09/2017 Active albuterol sulfate (PROVENTIL) (2.5 MG/3ML) 0.083% nebulizer solutionIndication s:Severe chronic obstructive pulmonary disease (HCC),COPD exacerbation (HCC) Inhale 1 Vial via nebulizer every 4 hours as needed for Wheezing or Shortness of Breath. 120 Vial 11 08/23/2017 8 Discontinued albuterol sulfate (PROVENTIL) (2.5 MG/3ML) 0.083% nebulizer solutionIndication s:Severe chronic obstructive pulmonary disease (HCC),COPD exacerbation (HCC) Inhale 1 Vial via nebulizer every 4 hours as needed for Wheezing or Shortness of Breath. 120 Vial 11 09/09/2017 8 Discontinued as of this encounter Active Problems Problem Noted Date Pneumonia 06/13/2017 Overview: left basal infiltrate Severe chronic obstructive pulmonary dis ease ([facility]) 10/28/2016 Overview: severe by ATS criteria. significant response after bronchodilator ADVANCE DIRECTIVE INFORMATION 02/01/2008 Overview: No, Advance Directive brochure given to patient. Tobacco use disorder 04/22/2005 Loss of teeth due to trauma, extraction, or periodontal disease as of this encounter Resolved Problems Problem Noted Date Resolved Date COPD exacerbation ([facility]) 10/16/2016 05/03/20 17 Inflammation of sacroiliac joint ([facility]) 5 03/12/2017 Other abnormal glucose 04/23/2005 7 [...] Encounter - Khadijah Rehman RN - 09/09/2017 2:57 PM EDT Script faxed to [facility] DIL aware that the med will be shipped to [facility] in [place] and can be picked up there. Also aware 1 box of 25 vials was sent to [facility] in [place]. Khadijah Rehman RN * Telephone Encounter - Abram Owens MD - 09/09/2017 11:22 AM EDT ok * Telephone Encounter - Khadijah Rehman RN - 09/09/2017 10:[address] Owens, Just was informed that [facility] doesn't bill under [facility] Part B and Daniel's med would be quite expensive. He is complety out so [facility] said he could picking supervisor 1 box and would be about $20. [address] he would have med for weekend as [facility] is unable to deliver until Wed or Wednesday. Will need script sent to [facility] for full script and 1 box of 25 vials to [facility]. Thank you, Khadijah Rehman RN (order for [facility] to follow) in this encounter Plan of Treatment Upcoming Encounters Date Type Specialty Care Team Description 10/11/2017 Pharmacy Accounts Receivable Bookkeeper, Pharmacy Reimbursement [address] [place] [address] [phone] 10/20/2017 Pharmacy Accounts Receivable Bookkeeper, Pharmacy Reimbursement [address] [place] [place] [address] [phone] 10/27/2017 Office Visit Internal Medicine Abram Owens MD [address] [place] [address] ABRAHAM Burnham [address] Health Maintenance Due Date [...] 04/27/2017 LUNG CANCER SCREENING YEARLY -USE SMARTSET [id number] 06/23/2018 06/23/2017 DIABETES SCREEN EVERY 3 YRS- [...] Phone Address MEDICARE MEDICARE A AND B [id number] Medicare [place] as of this encounter
--- OUTSIDE RECORDS SUMMARY | 2023-04-08 23:29 | External Medical Summary | Summary of Care ---
Author Name Unknown Organization [place] [address] Phone Care Team Providers Care Internet Marketing Specialist Name Role Phone Abram Quiroz MD Primary Care Provider [phone] Reason for Visit * Reason Comments MEDICATION REFILL Encounter Details Date Type Department Care Team Description 10/14/2017 Refill Internal Medicine [address] [address] Abram Quiroz MD [address] [place] [address] [phone] SOB (shortness of breath) Allergies No Known [...] s:Severe chronic obstructive pulmonary disease (HCC),COPD exacerbation ([facility]) Inhale 1 Vial via nebulizer every 4 [...] 3 Disk Dosing Unit 1 10/14/2017 Active fluticasone-salmet umberto (ADVAIR DISKUS) 250-50 MCG/DOSE inhalerIndications :SOB (shortness of breath) Inhale 1 Puff by mouth 2 times a day. 3 Disk Dosing Unit 1 07/28/2017 8 Discontinued as of this encounter Active Problems Problem Noted Date Pneumonia 06/13/2017 Overview: left basal infiltrate Severe chronic obstructive pulmonary dis ease ([facility]) 10/28/2016 Overview: severe by ATS criteria. significant response after bronchodilator ADVANCE DIRECTIVE INFORMATION 02/01/2008 Overview: No, Advance Directive brochure given to patient. Tobacco use disorder 04/22/2005 Loss of teeth due to trauma, extraction, or periodontal disease as of this encounter Resolved Problems Problem Noted Date Resolved Date COPD exacerbation ([facility]) 10/16/2016 05/03/20 17 Inflammation of sacroiliac joint ([facility]) 5 03/12/2017 Other abnormal glucose [...] Encounter - Abram Quiroz MD - 10/14/2017 1:19 PM EDT Signed Prescriptions: Disp Refills fluticasone-salmeterol (ADVAIR DISKUS) 250*3 Disk*1 Sig: Inhale 1 Puff by mouth 2 times a day. Authorizing Provider: ABRAM QUIROZ * Telephone Encounter - Shantelle Jacobo RN - 10/14/2017 12:40 PM EDT Formatting of this note may be different from the original. Please print as normal. Need new rx to send to [employer] patient assistance program/ Pending Prescriptions: Disp Refills fluticasone-salmeterol (ADVAIR DISKUS) 25*3 Disk*1 Sig: Inhale 1 Puff by mouth 2 times a day. Last Office Visit: 07/30/2017 Next Office Visit: 10/20/2017 Scheduled Provider(s): Paul Ramirez MD If no future appointments scheduled, and last appointment is greater than a year ago, please schedule patient for a follow-up appointment Patient Phone Numbers Labs: Lab Results Component Value Date/Time CREAT 0.91 06/23/2017 CREAT 1.1 06/18/2017 09:59 AM POTASSIUM 3.8 06/18/2017 09:59 AM TSH 1.06 08/30/2006 11:56 AM LDLCALC 74 02/17/2008 03:12 PM ALT 23 02/17/2008 03:12 PM HGBA1C 5.7 08/30/2006 11:56 AM in this encounter Plan of Treatment Upcoming Encounters Date Type Specialty Care Team Description 10/20/2017 Pharmacy Loom Fixer, Pharmacy Reimbursement [address] [place] [address] [phone] 10/20/2017 Office Visit Internal Medicine Paul Ramirez MD [address] [place] [address] [place] [address] [phone] 10/27/2017 Office Visit Internal Medicine Abram Quiroz MD [address] [place] [address] [place] [address] [phone] 12/27/2017 Pharmacy Loom Fixer, Pharmacy Reimbursement [address] [place], [place] [id number] Health Maintenance Due Date Last Done Comments DTaP,Tdap,and Td Vaccines (1 - Tdap) 1959 LIPID SCREEN EVERY 5 YRS-MEN AGE 35-75 02/16/2013 02/17/2008 *COLORECTAL CANCER SCREENING (COLONOSCOPY 10 YEARS; SIGMOIDOSCOPY 5 YEARS; COLOGUARD 3 YEARS; FOBT 1 YEAR),AGES 50-75 07/11/2017 PNEUMOCOCCAL ADULT 65 YRS AN D OVER (2 of 2 - PCV13) 04/27/2018 04/27/2017 LUNG CANCER SCREENING YEARLY -USE SMARTSET 27275 06/23/2018 06/23/2017 DIABETES SCREEN EVERY 3 YRS- AGE 45 AND ABOVE 06/23/2020 06/23/2017, 06/18/2017, 05/17/2017, Additional history exists Influenza Vaccine (FLU shot) Completed 11/2016, 03/12/2009, 04/24/2006, Additional history exists as of this encounter Implants Not on fileas of this encounter Visit Diagnoses Diagnosis SOB (shortness of breath) Shortness of breath in this encounter
--- OUTSIDE RECORDS SUMMARY | 2023-04-08 23:29 | External Medical Summary | Summary of Care ---
Author Name Unknown Organization [place] [address] Phone Care Team Providers Care Classifier Name Role Phone Abram Owens MD Primary Care Provider Reason for Visit * Reason Comments medication change Encounter Details Date Type Department Care Team Description 10/12/2017 Telephone Internal Medicine [address] [address] Abram Owens MD [address] [place] [address] [phone] medication change Allergies No Known Allergiesas of this encounter [...] nebulizer solutionIndications: Severe chronic obstructive pulmonary disease ([facility]),COPD exacerbation ([facility]) Inhale 1 Vial via nebulizer every 4 hours as needed for Wheezing or Shortness of Breath. Please bill under Part B [facility]. 25 Vial 6 09/10/2017 Active albuterol-ipratropiu m (DUONEB) 2.5-0.5 MG/3ML nebulizer solutionIndications: Severe chronic obstructive pulmonary disease ([facility]) Inhale 3 mL by mouth every 4 hours as needed for Shortness of Breath or Wheezing. 30 Vial 2 10/12/2017 Active as of this encounter Active Problems Problem Noted Date Pneumonia 06/13/2017 Overview: left basal infiltrate Severe chronic obstructive pulmonary dis ease ([facility]) 10/28/2016 Overview: severe by ATS criteria. significant response after bronchodilator ADVANCE DIRECTIVE INFORMATION 02/01/2008 Overview: No, Advance Directive brochure given to patient. Tobacco use disorder 04/22/2005 Loss of teeth due to trauma, extraction, or periodontal disease as of this encounter Resolved Problems Problem Noted Date Resolved Date COPD exacerbation ([facility]) 10/16/2016 05/03/20 17 Inflammation of sacroiliac joint ([facility]) 5 03/12/2017 Other abnormal glucose 04/23/2005 [...] Telephone Encounter - Abram Owens MD - 10/12/2017 1:34 PM EDT ok * Telephone Encounter - Vishnu Shane CPhT - 10/12/2017 11:47 AM EDT Formatting of this note may be different from the original. [facility] pharmacy calling in stating that the patient does not have health insurance and was recently discharged from [facility] and was given a discharge order that will cost him over $4,000.00. Pharmacist would like to know if it would be okay to switch him to the Duoneb. Orders pended. Please approve if agreeable and send to the patient's preferred pharmacy. Please advise. Pending Prescriptions: Disp Refills albuterol-ipratropium (DUONEB) 2.5-0.5 MG*30 Vial2 Sig: Inhale 3 mL by mouth every 4 hours as needed for Shortness of Breath or Wheezing. Last Office Visit: 07/30/2017 Next Office Visit: 10/14/2017 Scheduled Provider(s): Abram Owens MD If no future appointments scheduled, and last appointment is greater than a year ago, please schedule patient for a follow-up appointment Last date the medication was ordered: N/A Patient Phone Numbers Labs: Lab Results Component Value Date/Time CREAT 0.91 06/23/2017 CREAT 1.1 06/18/2017 09:59 AM POTASSIUM 3.8 06/18/2017 09:59 AM TSH 1.06 08/30/2006 11:56 AM LDLCALC 74 02/17/2008 03:12 PM ALT 23 02/17/2008 03:12 PM HGBA1C 5.7 08/30/2006 11:56 AM Thanks, Vishnu Shane Public Policy Coordinator Pharmacy Refill Call Center 10/12/2017,11:52 AM in this encounter Plan of Treatment Upcoming Encounters Date Type Specialty Care Team Description 10/14/2017 Office Visit Internal Medicine Abram Owens MD [address] [place] [address] [place] Burnham [address] [phone] 10/20/2017 Pharmacy Dredge Worker, Pharmacy Reimbursement [address] [place] [address] [phone] 10/27/2017 Office Visit Internal Medicine Abram Owens MD [address] [place] [address] ABRAH[place] Burnham [address] [phone] 12/27/2017 Pharmacy Dredge Worker, Pharmacy Reimbursement [address] [place], [place] [phone] Health Maintenance Due Date Last Done Comments DTaP,Tdap,and Td Vaccines (1 - Tdap) 1959 LIPID SCREEN EVERY 5 YRS-MEN AGE 35-75 02/16/2013 02/17/2008 *COLORECTAL CANCER SCREENING (COLONOSCOPY 10 YEARS; SIGMOIDOSCOPY 5 YEARS; COLOGUARD 3 YEARS; FOBT 1 YEAR),AGES 50-75 07/11/2017 PNEUMOCOCCAL ADULT 65 YRS AN D OVER (2 of 2 - PCV13) 04/27/2018 04/27/2017 LUNG CANCER SCREENING YEARLY -USE SMARTSET 17028 06/23/2018 06/23/2017 DIABETES SCREEN EVERY 3 YRS- [...]
--- OUTSIDE RECORDS SUMMARY | 2023-04-08 23:29 | External Medical Summary | Summary of Care ---
Author Name Unknown Organization [place] [address] Phone Care Team Providers Care Private Tutors And Teachers Name Role Phone Abram Owens MD Primary Care Provider [phone] Reason for Visit * Reason Comments MEDICATION QUESTION Encounter Details Date Type Department Care Team Description 10/11/2017 Pharmacy Pharmacy, [place] [address] [place], [place] [id number] Coordinator, Pharmacy [facility] [address] [place] [phone] Severe chronic obstructive pulmonary disease (HCC)* Allergies [...] nebulizer solutionIndications: Severe chronic obstructive pulmonary disease ([facility]),COPD exacerbation ([facility]) Inhale 1 Vial via nebulizer every 4 [...] Date Resolved Date COPD exacerbation ([facility]) 10/16/2016 05/03/20 [...] Progress Notes * Chele Gallardo OSA - 08/05/2017 1:[address] refill: Company: [employer]-Phone number [phone] Id# [id number] Rx: Advair Diskus Dose:250-50 MCG Quantity: 3 RX #Please update Provider: Abram Owens MD Provider Id#[id number] Refill # 1 of 3 Next Refill 12/13/2017 Enrollment Expires 08/03/2018 [employer] Guest Service Host 08/05/2017 1:47 PM A refill order was placed for Advair Diskus from the [employer] program. Rep advised new script would be needed for next refill, script request sent to Abram Owens MD A 90 day supply will be shipped to [address] [place] [address] and arrive in 7 to 10 business days. The next refill order is due 12/27/2017. JAH [employer] Guest Service Host 10/11/2017 11:25 AM in this encounter Plan of Treatment Upcoming Encounters Date Type Specialty Care Team Description 10/20/2017 Pharmacy Site Surveyor, Pharmacy Reimbursement [address] [place] [address] [phone] 10/27/2017 Office Visit Internal Medicine Abram Owens MD [address] [place] [address] ABRA[place] Burnham [address] [phone] 12/27/2017 Pharmacy Site Surveyor, Pharmacy Reimbursement [address] [place] [address] [phone] Health Maintenance Due Date Last Done Comments DTaP,Tdap,and Td Vaccines (1 - Tdap) 1959 LIPID SCREEN EVERY 5 YRS-MEN AGE 35-75 02/16/2013 02/17/2008 *COLORECTAL CANCER SCREENING (COLONOSCOPY 10 YEARS; SIGMOIDOSCOPY 5 YEARS; COLOGUARD 3 YEARS; FOBT 1 YEAR),AGES 50-75 07/11/2017 PNEUMOCOCCAL ADULT 65 YRS AN D OVER (2 of 2 - PCV13) 04/27/2018 04/27/2017 LUNG CANCER SCREENING YEARLY -USE SMARTSET [id number] 06/23/2018 06/23/2017 DIABETES SCREEN EVERY 3 YRS- [...]
--- OUTSIDE RECORDS SUMMARY | 2023-04-08 23:29 | External Medical Summary | Summary of Care ---
Author Name Unknown Organization [place] [address] Phone Care Team Providers Care Data Security Analyst Name Role Phone Abram Owens MD Primary Care Provider [phone] Encounter Details Date Type Department Care Team Description 10/03/2017 Scan Encounter Unspecified Department <No scans attached> [...] nebulizer solutionIndications: Severe chronic obstructive pulmonary disease ([facility]),COPD exacerbation ([facility]) Inhale 1 Vial via nebulizer every 4 hours as needed for Wheezing or Shortness of Breath. Please bill under Part B [facility]. 25 Vial 6 09/10/2017 Active as of this encounter Active Problems Problem Noted Date Pneumonia 06/13/2017 Overview: left basal infiltrate Severe chronic obstructive pulmonary dis ease ([facility]) 10/28/2016 Overview: severe by ATS criteria. significant response after bronchodilator ADVANCE DIRECTIVE INFORMATION 02/01/2008 Overview: No, Advance Directive brochure given to patient. Tobacco use disorder 04/22/2005 Loss of teeth due to trauma, extraction, or periodontal disease as of this encounter Resolved Problems Problem Noted Date Resolved Date COPD exacerbation ([facility]) 10/16/2016 05/03/20 [...] Type Specialty Care Team Description 10/11/2017 Pharmacy Finding Fastener, Pharmacy Reimbursement [address] [place] [facility] [place] [address] [phone] 10/20/2017 Pharmacy Finding Fastener, Pharmacy Reimbursement [address] [place] [address] [phone] 10/27/2017 Office Visit Internal Medicine Abram Owens MD [address] [place] [address] AB[place] Burnham [address] [phone] Health Maintenance Due Date Last Done Comments [...] 04/27/2017 LUNG CANCER SCREENING YEARLY -USE SMARTSET [address]75 06/23/2018 06/23/2017 DIABETES SCREEN EVERY 3 YRS- AGE 45 AND ABOVE 06/23/2020 06/23/2017, 06/18/2017, 05/17/2017, Additional history exists Influenza Vaccine (FLU shot) Completed 11/2016, 03/12/2009, 04/24/2006, Additional history exists as of this encounter Implants Not on fileas of this encounter Insurance Payer Benefit Plan / Group Subscriber ID Type Phone Address MEDICARE MEDICARE A AND B [id number] [place] as of this encounter
--- OUTSIDE RECORDS SUMMARY | 2023-04-08 23:29 | External Medical Summary | Summary of Care ---
Author Name Unknown Organization [place] [address] Phone Care Team Providers Care Solar System Installer Name Role Phone Abram Quiroz MD Primary Care Provider Reason for Visit * Reason Comments case management MEDICATION REFILL Encounter Details Date Type Department Care Team Description 09/09/2017 Refill Internal Medicine [address] [address] OhsKhadijah RN [address] [place] [address] [phone] SOB (shortness of breath);Severe chronic obstructive pulmonary disease (HCC);COPD exacerbation (HCC) [...] Shortness of Breath. 120 Vial 11 09/09/2017 Active albuterol sulfate (PROVENTIL) (2.5 MG/3ML) 0.083% nebulizer solutionIndication s:Severe chronic obstructive pulmonary disease (HCC),COPD exacerbation (HCC) Inhale 1 Vial via nebulizer every 4 hours as needed for Wheezing or Shortness of Breath. 120 Vial 11 08/23/2017 8 Discontinued as of this encounter Active Problems Problem Noted Date Pneumonia 06/13/2017 Overview: left basal infiltrate Severe chronic obstructive pulmonary dis ease ([facility]) 10/28/2016 Overview: severe by ATS criteria. significant response after bronchodilator ADVANCE DIRECTIVE INFORMATION 02/01/2008 Overview: No, Advance Directive brochure given to patient. Tobacco use disorder 04/22/2005 Loss of teeth due to trauma, extraction, or periodontal disease as of this encounter Resolved Problems Problem Noted Date Resolved Date COPD exacerbation ([facility]) 10/16/2016 05/03/20 17 Inflammation of sacroiliac joint ([facility]) 5 03/12/2017 Other abnormal glucose 04/23/2005 [...] Telephone Encounter - Abram Quiroz MD - 09/09/2017 9:33 AM EDT Signed Prescriptions: Disp Refills albuterol sulfate (PROVENTIL) (2.5 MG/3ML)*120 Vi*11 Sig: Inhale 1 Vial via nebulizer every 4 hours as needed for Wheezing or Shortness of Breath. Authorizing Provider: ABRAM QUIROZ * Telephone Encounter - Khadijah Rehman RN - 09/09/2017 9:13 AM EDT Spoke with [facility] in [place]. They never filled the script as was signed by ABRAHAM and needs a Dr to either submit new order or co-sign previous. They can't deliver to Daniel until Wednesday anyway and he is completely out per daughter in law. Can we send to [facility]? Thanks, Khadijah Rehman, FRANCES * Telephone Encounter - Khadijah Rehman RN - 09/09/2017 8:26 AM EDT Formatting of this note may be different from the original. Message from 09-08-17 September 08, 2017 Marylin Meyers, JAH 3:29 PM Note Pt's daughter calling in asking for Fide to call pt regarding his medication. CM call: Spoke with Nubia Gupta daughter in law. Se reports that [facility] never received his Albuterol neb med? This had been ordered 08/23/17 Tried to contact [facility] but not opened until 9am. I will try again later. The script was sent to them so could be billed under Part B. in this encounter Plan of Treatment Upcoming Encounters Date Type Specialty Care Team Description 10/11/2017 Pharmacy Environmental Consultant, Pharmacy Reimbursement [address] [place] [address] [phone] 10/20/2017 Pharmacy Environmental Consultant, Pharmacy Reimbursement [address] [place] [address] 10/27/2017 Office Visit Internal Medicine Abram Quiroz MD [address] [place] [address] ABRAH[place] Burnham [address] Health Maintenance Due Date [...] 04/27/2017 LUNG CANCER SCREENING YEARLY -USE SMARTSET 77274 06/23/2018 06/23/2017 DIABETES SCREEN EVERY 3 YRS- [...] Phone Address MEDICARE MEDICARE A AND B [id number] Medicare [place] as of this encounter
--- OUTSIDE RECORDS SUMMARY | 2023-04-08 23:29 | External Medical Summary | Summary of Care ---
Author Name Unknown Organization [place] [address] Phone Care Team Providers Care Carpet Weaver Name Role Phone Abram Owens MD Primary Care Provider [phone] Encounter Details Date Type Department Care Team Description 10/06/2017 Scan Encounter Unspecified Department <No scans attached> Allergies No Known Allergiesas of this encounter Medications No known medicationsas of this encounter Active Problems Problem Noted [...] 05/03/20 17 Inflammation of sacroiliac joint ([facility]) 5 03/12/2017 Other abnormal [...] Type Specialty Care Team Description 10/11/2017 Pharmacy Waste Management Engineer, Pharmacy Reimbursement [address] [facility] [place] [address] [phone] 10/20/2017 Pharmacy Waste Management Engineer[facility] [address] [facility] [address] [phone] 10/27/2017 Office Visit Internal Medicine Abram Owens MD [address] [place] [address] ABRAH[place] Burnham [address] Health Maintenance Due Date [...] 04/27/2017 LUNG CANCER SCREENING YEARLY -USE SMARTSET [address]67 06/23/2018 06/23/2017 DIABETES SCREEN EVERY 3 YRS- AGE 45 AND ABOVE 06/23/2020 06/23/2017, 06/18/2017, 05/17/2017, Additional history exists Influenza Vaccine (FLU shot) Completed 11/2016, 03/12/2009, 04/24/2006, Additional history exists as of this encounter Implants Not on fileas of this encounter Insurance Payer Benefit Plan / Group Subscriber ID Type Phone Address MEDICARE MEDICARE A AND B [id number] Medicare [place] as of this encounter
--- OUTSIDE RECORDS SUMMARY | 2023-04-08 23:29 | External Medical Summary | Summary of Care ---
Author Name Unknown Organization [place] [address] Phone Care Team Providers Care Elevated Motorman Name Role Phone Abram Owens MD Primary Care Provider Reason for Visit * Reason Comments MED REQUEST Encounter Details Date Type Department Care Team Description 08/23/2017 Telephone Internal Medicine [address] [address] OhsKhadijah RN [address] [place] [address] [place] [address] MED REQUEST Allergies No Known Allergiesas [...] Date Resolved Date COPD exacerbation ([facility]) 10/16/2016 05/03/20 17 Inflammation of sacroiliac joint ([facility]) 5 03/12/2017 Other abnormal glucose [...] refilled. Order needs faxed to [facility] [place]. Thanks, Khadijah Rehman, RN in this encounter Plan of Treatment Upcoming Encounters Date Type Specialty Care Team Description 10/11/2017 Pharmacy Asw Specialist, Pharmacy Reimbursement [address] [place] [address] [phone] 10/20/2017 Pharmacy Asw Specialist, Pharmacy Reimbursement [address] [place] [address] [phone] 10/27/2017 Office Visit Internal Medicine Abram Owens MD [address] [place] [address] ABRAH[place] Burnham [address] Health Maintenance Due Date [...] 04/27/2017 LUNG CANCER SCREENING YEARLY -USE SMARTSET 35487 06/23/2018 06/23/2017 DIABETES SCREEN EVERY 3 YRS- [...] Phone Address MEDICARE MEDICARE A AND B [id number] [place] as of this encounter
--- OUTSIDE RECORDS SUMMARY | 2023-04-08 23:29 | External Medical Summary | Summary of Care ---
Author Name Unknown Organization [place] [address] Phone Care Team Providers Care Crowning Inspector Name Role Phone Abram Owens MD Primary Care Provider Encounter Details Date Type Department Care Team Description 10/07/2017 Scan Encounter Unspecified Department <No scans attached> [...] nebulizer solutionIndications: Severe chronic obstructive pulmonary disease ([facility]),COPD exacerbation ([facility]) Inhale 1 Vial via nebulizer every 4 hours as needed for Wheezing or Shortness of Breath. Please bill under Part B [facility]. 25 Vial 6 09/10/2017 Active as of this encounter Active Problems Problem Noted Date Pneumonia 06/13/2017 Overview: left basal infiltrate Severe chronic obstructive pulmonary dis ease ([facility]) 10/28/2016 Overview: severe by ATS criteria. significant response after bronchodilator ADVANCE DIRECTIVE INFORMATION 02/01/2008 Overview: No, Advance Directive brochure given to patient. Tobacco use disorder 04/22/2005 Loss of teeth due to trauma, extraction, or periodontal disease as of this encounter Resolved Problems Problem Noted Date Resolved Date COPD exacerbation ([facility]) 10/16/2016 [...] Type Specialty Care Team Description 10/11/2017 Pharmacy Bowling Ball Grader, Pharmacy Reimbursement [address] [facility] [place] [address] [phone] 10/20/2017 Pharmacy Bowling Ball Grader, Pharmacy Reimbursement [address] [place] [facility] [address] [phone] 10/27/2017 Office Visit Internal Medicine Abram Owens MD [address] [place] [address] [place] [address] [phone] Health Maintenance Due Date Last Done Comments [...] 04/27/2017 LUNG CANCER SCREENING YEARLY -USE SMARTSET [id number] 06/23/2018 06/23/2017 DIABETES SCREEN EVERY 3 YRS- AGE 45 AND ABOVE 06/23/2020 06/23/2017, 06/18/2017, 05/17/2017, Additional history exists Influenza Vaccine (FLU shot) Completed 11/2016, 03/12/2009, 04/24/2006, Additional history exists as of this encounter Implants Not on fileas of this encounter Insurance Payer Benefit Plan / Group Subscriber ID Type Phone Address MEDICARE MEDICARE A AND B [id number] [place] as of this encounter
--- OUTSIDE RECORDS SUMMARY | 2023-04-08 23:29 | External Medical Summary | Summary of Care ---
Author Name Unknown Organization [place] [address] Phone Care Team Providers Care Stitcher Standard Machine Name Role Phone Abram Owens MD Primary Care Provider [phone] Encounter Details Date Type Department Care Team Description 10/14/2017 Child Care SpecialistFringe Maker Medicine [address] [address] OhsKhadijah RN [address] [place] [address] [place] [address] [phone] SOB (shortness of breath)*;Severe chronic obstructive pulmonary [...] Notes * Ori, Khadijah Sunshine RN - 10/14/2017 1:00 PM EDT Case Management Assessment Is this call for a hospital, snf or rehab facility discharge to home? Yes [facility] with c/o progressively worsening SOB, cough and congestion. He reported this hasbeen woprsening x 1 week or more. His CXR revealed LLL infiltrate. Dx was acute bronchitis/COPD exacerbation. He did produce a sputum specimen and it showed pseudomonas. He received 7 days of antibiotics and IV steroids. Pulmonary saw him and had planned a bronchoscopy although "respiratory status is still tenuous" and was then not completed. Lou gradually improved and was finally disharged home on 10-12-17. He decline any need for services so no consult was placed. S: Reports: Daniel says he feels better but remains quite weak. Breathing is better than when he went in but "still not good". He is still coughing at times and produces pina mucus. No blood noted. He is taking the Prednisone as ordered although didn't have his script for the taper filled so he will run out by Wednesday. Message to Dr Owens for 66 tablets so this will include taper amount as well as 30 day refill for 10 mg daily. He was ordered Ipratropium and Levalbuterol but would have cost $4000.[address] Owens replaced with Jorge and was $30. He is using the nebulizer and inhalers as directed. Using 02 continuously. He says he is eating well and bowels are moving regularly. He reports he was pretty swollen in his legs when he was discharged but has improved since he is home. Voiding large amounts. He says his ribs and back are sore at times. He had a fall prior to hospital stay after drinking beer. He refuses any counseling and denies any need for treatment. He is not smoking. He was scheduled with Dr Owens today for hospital f/u but no transportation aswife is working today. Rescheduled for next Wed10/20/[address] Ramirez. O: Phone visit for CM SULEMA for hospital stay x 9 days for COPD exacerbation. Medications: takes all medications [...] reliable transportation and Older than 70 years P: Child Care Specialist Interventions: Reinforce Self Management Action Plan established at previous visit Reinforced "call back instructions" if weight fails to return to baseline, urine outputs decrease, symptoms increase Contacted managing provider Reinforced sodium restriction Reinforced safety education / [...] update plan of care, instructed to call Child Care Specialist or Primary Care Provider with change in symptoms or as needed before next follow-up, verbalizes understanding and agrees with plan. Khadijah Rehman, RN Outpatient Child Care Specialist in this encounter Plan of Treatment Upcoming Encounters Date Type Specialty Care Team Description 10/20/2017 Pharmacy Legal Operations Manager, Pharmacy Reimbursement [address] [place] [address] [phone] 10/20/2017 Office Visit Internal Medicine Paul Ramirez MD [address] [place] [address] [place] [address] [phone] 10/27/2017 Office Visit Internal Medicine Abram Owens MD [address] [place] [address] [place] [address] [phone] 12/27/2017 Pharmacy Legal Operations Manager, Pharmacy Reimbursement [address] [place] [address] [phone] Health Maintenance Due Date Last Done Comments DTaP,Tdap,and Td Vaccines (1 - Tdap) 1959 LIPID SCREEN EVERY 5 YRS-MEN AGE 35-75 02/16/2013 02/17/2008 *COLORECTAL CANCER SCREENING (COLONOSCOPY 10 YEARS; SIGMOIDOSCOPY 5 YEARS; COLOGUARD 3 YEARS; FOBT 1 YEAR),AGES 50-75 07/11/2017 PNEUMOCOCCAL ADULT 65 YRS AN D OVER (2 of 2 - PCV13) 04/27/2018 04/27/2017 LUNG CANCER SCREENING YEARLY -USE SMARTSET [id number] 06/23/2018 06/23/2017 DIABETES SCREEN EVERY 3 YRS- [...]
--- OUTSIDE RECORDS SUMMARY | 2023-04-08 23:29 | External Medical Summary | Summary of Care ---
Author Name Unknown Organization [place] [address] Phone Care Team Providers Care Overhead Crane Technician Name Role Phone Abram Owens MD Primary Care Provider [phone] Encounter Details Date Type Department Care Team Description 10/05/2017 Scan Encounter Unspecified Department <No scans attached> [...] pulmonary disease ([facility]),COPD exacerbation ([facility]) Inhale 1 Vial via nebulizer every 4 [...] Type Specialty Care Team Description 10/11/2017 Pharmacy A And P Technician, Pharmacy Reimbursement [address] [facility] [place] [address] [phone] 10/20/2017 Pharmacy A And P Technician, Pharmacy Reimbursement [address] [place] [facility] [place] [address] [phone] 10/27/2017 Office Visit Internal Medicine Abram Owens MD [address] [place] [address] [place] [address] [phone] Health Maintenance Due Date Last Done Comments [...] 04/27/2017 LUNG CANCER SCREENING YEARLY -USE SMARTSET [id number] 06/23/2018 06/23/2017 DIABETES SCREEN EVERY 3 YRS- AGE 45 AND ABOVE 06/23/2020 06/23/2017, 06/18/2017, 05/17/2017, Additional history exists Influenza Vaccine (FLU shot) Completed 11/2016, 03/12/2009, 04/24/2006, Additional history exists as of this encounter Implants Not on fileas of this encounter Insurance Payer Benefit Plan / Group Subscriber ID Type Phone Address MEDICARE MEDICARE A AND B [id number] [place] as of this encounter
--- OUTSIDE RECORDS SUMMARY | 2023-04-08 23:29 | External Medical Summary | Summary of Care ---
Author Name Unknown Organization [place] [address] Phone Care Team Providers Care Anode Machine Operator Name Role Phone Abram Owens MD Primary Care Provider [phone] Reason for Visit * Reason Comments MEDICATION QUESTION Encounter Details Date Type Department Care Team Description 10/18/2017 Pharmacy Pharmacy, [place] [address], [place] [id number] Coordinator, Pharmacy [facility] [address], [place] [id number] Severe chronic obstructive pulmonary disease (HCC)* Allergies [...] MCG TabletIndications:Ximena mckenna chronic obstructive pulmonary disease ([facility]) Take 1 Tab by mouth daily. 30 Tab 5 05/25/2017 Active PredniSONE (DELTASONE) 10 MG TabletIndications:Ximena mckenna chronic obstructive pulmonary disease ([facility]) One daily with food 30 Tab 5 06/25/2017 Active albuterol sulfate (PROVENTIL) (2.5 MG/3ML) 0.083% nebulizer solutionIndications :Severe chronic obstructive pulmonary disease ([facility]),COPD exacerbation ([facility]) Inhale 1 Vial via nebulizer every 4 hours as needed for Wheezing or Shortness of Breath. Please bill under Part B [facility]. 25 Vial 6 09/10/2017 Active albuterol-ipratropi um (DUONEB) 2.5-0.5 MG/3ML nebulizer solutionIndications :Severe chronic obstructive pulmonary disease ([facility]) Inhale 3 mL by mouth every 4 hours as needed for Shortness of Breath or Wheezing. 30 Vial 2 10/12/2017 Active PredniSONE (DELTASONE) 10 MG TabletIndications:Ximena mckenna chronic obstructive pulmonary disease ([facility]) 4 tabs x 4 days, 3 tabs [...] chronic obstructive pulmonary dis ease ([facility]) 10/28/2016 Overview: severe by ATS criteria. significant response after bronchodilator ADVANCE DIRECTIVE INFORMATION 02/01/2008 Overview: No, Advance Directive brochure given to patient. Tobacco use disorder 04/22/2005 Loss of teeth due to trauma, extraction, or periodontal disease as of this encounter Resolved Problems Problem Noted Date Resolved Date COPD exacerbation ([facility]) 10/16/2016 05/03/20 17 Inflammation of sacroiliac joint ([facility]) 5 03/12/2017 Other abnormal glucose 04/23/2005 [...] Progress Notes * Chele Gallardo OSA - 10/18/2017 10:23 AM EDT A refill order was placed for Proair HFA from the [employer] [facility] program. A 90 day supply will be shipped to [address] [place] [address] and arrive in 7 to 10 business days. The next refill order is due 01/10/2018. JAH [employer] Geek Squad Agent 10/18/2017 10:24 AM in this encounter Plan of Treatment Upcoming Encounters Date Type Specialty Care Team Description 10/20/2017 Pharmacy Senior Network Engineer, Pharmacy Reimbursement [address] [place] [address] [phone] 10/20/2017 Office Visit Internal Medicine Paul Ramirze MD [address] [place] [address] [place] [address] [phone] 10/27/2017 Office Visit Internal Medicine Abram Owens MD [address] [place] [address] [place] [address] [phone] 12/27/2017 Pharmacy Senior Network Engineer, Pharmacy Reimbursement [address] [place] [address] [phone] Health Maintenance Due Date Last Done Comments DTaP,Tdap,and Td Vaccines (1 - Tdap) 1959 LIPID SCREEN EVERY 5 YRS-MEN AGE 35-75 02/16/2013 02/17/2008 *COLORECTAL CANCER SCREENING (COLONOSCOPY 10 YEARS; SIGMOIDOSCOPY 5 YEARS; COLOGUARD 3 YEARS; FOBT 1 YEAR),AGES 50-75 07/11/2017 PNEUMOCOCCAL ADULT 65 YRS AN D OVER (2 of 2 - PCV13) 04/27/2018 04/27/2017 LUNG CANCER SCREENING YEARLY -USE SMARTSET [id number] 06/23/2018 06/23/2017 DIABETES SCREEN EVERY 3 YRS- [...]
--- OUTSIDE RECORDS SUMMARY | 2023-04-08 23:30 | External Medical Summary | Summary of Care ---
Author Name Unknown Organization [place] [address] Phone Care Team Providers Care Bow Maker Production Name Role Phone Abram Owens MD Primary Care Provider [phone] Reason for Visit * Reason Comments MEDICATION QUESTION Encounter Details Date Type Department Care Team Description 08/23/2017 Pharmacy Pharmacy, [place] [address] [place] [address] Coordinator, Pharmacy Reimbursement [address] [place] [address] Severe chronic obstructive pulmonary disease (HCC)* Allergies [...] nebulizer solutionIndications: Severe chronic obstructive pulmonary disease ([facility]),COPD exacerbation ([facility]) Inhale 1 Vial via nebulizer every 4 hours as needed for Wheezing or Shortness of Breath. 120 Vial 11 08/23/2017 Active as of this encounter Active Problems Problem Noted Date Pneumonia 06/13/2017 Overview: left basal infiltrate Severe chronic obstructive pulmonary dis ease ([facility]) 10/28/2016 Overview: severe by ATS criteria. significant response after bronchodilator ADVANCE DIRECTIVE INFORMATION 02/01/2008 Overview: No, Advance Directive brochure given to patient. Tobacco use disorder 04/22/2005 Loss of teeth due to trauma, extraction, or periodontal disease as of this encounter Resolved Problems Problem Noted Date Resolved Date COPD exacerbation ([facility]) 10/16/2016 05/03/20 17 Inflammation of sacroiliac joint ([facility]) 5 03/12/2017 Other abnormal glucose 04/23/2005 [...] Progress Notes * Chele Gallardo OSA - 08/16/2017 4:22 PM EDT Formatting of this note may be different from the original. Follow up needs made to company Coverage:Medicare A and B (No D) Patient ID: [facility] [address] ([facility] Patient Phone Numbers RX:Daliresp Dose: 500 MCG Quanity 90 Provider:Abram Owens MD ID# [id number] Please call [employer] to verify status of application. Phone number: [phone] Forms sent to provider:[facility] faxed application 08/03/2017 PRC received fax from [employer] 08/06/2017, patient address was either missing or illegible on application. [facility] faxed address to [employer]. [facility] followed up [employer] 08/16/2017, rep advised patient address is coming up invalid, [employer] rep left message with patient to call to clarify address. [facility] will follow up [employer] 1 week 08/23/2017. Approved: 08/19/2017. Initial shipment went out 08/19/2017. JAH [employer] Boiler Washer 08/16/2017 4:22 PM in this encounter Plan of Treatment Upcoming Encounters Date Type Specialty Care Team Description 10/11/2017 Pharmacy Agricultural Chemist, Pharmacy Reimbursement [address] [facility] [place] [address] [phone] 10/27/2017 Office Visit Internal Medicine Abram Owens MD [address] [place] [address] [place] [address] Health Maintenance Due Date [...] 04/27/2017 LUNG CANCER SCREENING YEARLY -USE SMARTSET [id number] 06/23/2018 06/23/2017 DIABETES SCREEN EVERY 3 YRS- [...] Phone Address MEDICARE MEDICARE A AND B [id number] [place] as of this encounter
--- OUTSIDE RECORDS SUMMARY | 2023-04-08 23:30 | External Medical Summary | Summary of Care ---
Author Name Unknown Organization [place] [address] Phone Care Team Providers Care Issuer Name Role Phone Abram Owens MD Primary Care Provider Unava ilable Reason for Visit * Reason Comments MEDICATION QUESTION Encounter Details Date Type Department Care Team Description 08/12/2017 Pharmacy Pharmacy, [place] [address] [place], [place] [id number] Coordinator, Pharmacy [facility] [address], [place] [id number] Severe chronic obstructive pulmonary disease (HCC)* Allergies No Known Allergiesas of this encounter Medications Prescription Sig. Disp. Refills Start Date End Date Status MEDICAL INSTRUCTIONSIndica tions:Severe chronic obstructive pulmonary disease (HCC),COPD exacerbation (HCC) Nebulizer and tubing 1 Each 1 03/12/2017 Active albuterol sulfate (PROVENTIL) (2.5 MG/3ML) 0.083% nebulizer solutionIndication s:Severe chronic obstructive pulmonary disease (HCC),COPD exacerbation (HCC) Inhale 1 Vial via nebulizer every 4 hours as needed for Wheezing. 120 Vial 11 03/12/2017 Active folic acid 1 MG Tablet [...] 3 Disk Dosing Unit 1 07/28/2017 Active azithromycin (ZITHROMAX Z-ADA) 250 MG TabletIndications: Severe chronic obstructive pulmonary disease (HCC),COPD exacerbation ([facility]) Take two tablets by mouth on first day, then 1 tablet daily until gone 6 Tab 0 07/30/2017 8 Discontinued as of this encounter Active Problems Problem Noted Date Pneumonia 06/13/2017 Overview: left basal infiltrate Severe chronic obstructive pulmonary dis ease ([facility]) 10/28/2016 Overview: severe by ATS criteria. significant response after bronchodilator ADVANCE DIRECTIVE INFORMATION 02/01/2008 Overview: No, Advance Directive brochure given to patient. Tobacco use disorder 04/22/2005 Loss of teeth due to trauma, extraction, or periodontal disease as of this encounter Resolved Problems Problem Noted Date Resolved Date COPD exacerbation ([facility]) 10/16/2016 05/03/20 17 Inflammation of sacroiliac joint ([facility]) 5 03/12/2017 Other abnormal glucose 04/23/2005 [...] Progress Notes * Chele Gallardo, JAH - 08/03/2017 11:32 AM EST Formatting of this note may be different from the original. Follow up needs made to company Coverage:Medicare A and B (No D) Patient ID: Terri [facility] [address] Patient Phone Numbers RX:Daliresp Dose: 500 MCG Quanity 90 Provider:Abram Owens MD ID# [id number] Please call [employer] to verify status of application. Phone number: [phone] Forms sent to provider:[facility] faxed application 08/03/2017 Approved: [facility] received fax from [employer] 08/06/2017, patient address was either missing or illegible on application. [facility] faxed address to [employer]. [facility] followed up [employer] 08/16/2017, rep advised patient address is coming up invalid, [employer] rep left message with patient to call to clarify address. [facility] will follow up [employer] 1 week 08/23/2017. Follow up needs made to company Coverage:Medicare A and B (no D) Patient ID: [address] [facility] [address] Patient Phone Numbers RX:Advair Diskus Dose: 250-50 MCG Quanity 3 Provider:Abram Owens MD ID# [id number] Please call [facility] to verify status of application. Phone number: [phone] Forms sent to provider:[facility] faxed application 08/03/2017 Approved: PRC received fax from [employer], information missing from application. [facility]C followed up [employer], faxed POI 08/04/2017 PRC received fax 08/04/2017, patient approved through 08/03/2018 Follow up needs made to company Coverage:Medicare A and B (no D) [id number] [address] Patient Phone Numbers RX:Proair HFA Dose: 108 MCG Quanity 90 days Provider:Abram Owens MD ID# [id number] Please call [employer] to verify status of application. Phone number: [phone] Forms sent to provider:[facility] faxed application 08/03/2017 Approved: [facility]C received fax, patient approved 08/03/2017 JAH [employer] Laundry Helper 08/04/2017, 11:48 AM JAH [employer] Laundry Helper 08/03/2017 11:45 AM in this encounter Plan of Treatment Upcoming Encounters Date Type Specialty Care Team Description 08/23/2017 Pharmacy Bioengineer, Pharmacy Reimbursement [address] [place] [address] 10/11/2017 Pharmacy Bioengineer, Pharmacy Reimbursement [address] [place] [address] 10/27/2017 Office Visit Internal Medicine Abram Owens MD [address] [place] [address] [place] [address] Health Maintenance Due Date [...] 04/27/2017 LUNG CANCER SCREENING YEARLY -USE SMARTSET [id number] 06/23/2018 06/23/2017 DIABETES SCREEN EVERY 3 YRS- [...] Phone Address MEDICARE MEDICARE A AND B [id number] Medicare [place] as of this encounter
--- OUTSIDE RECORDS SUMMARY | 2023-04-08 23:30 | External Medical Summary | Summary of Care ---
Author Name Unknown Organization [place] [address] Phone Care Team Providers Care Customer Retention Specialist Name Role Phone Abram Owens MD Primary Care Provider [phone] Encounter Details Date Type Department Care Team Description 07/29/2017 Government Documents LibrarianVp Design Medicine [address] [address] Ohs, Khadijah Sunshine RN [address] [place] [address] [id number] SOB (shortness of breath)*;Severe chronic obstructive pulmonary disease (HCC);COPD exacerbation (HCC) Allergies No Known Allergiesas of this encounter Medications Prescription Sig. Disp. Refills Start Date End Date Status MEDICAL INSTRUCTIONSIndicati ons:Severe chronic obstructive pulmonary disease (HCC),COPD exacerbation (HCC) Nebulizer and tubing 1 Each 1 03/12/2017 Active albuterol sulfate (PROVENTIL) (2.5 MG/3ML) 0.083% nebulizer solutionIndications: Severe chronic obstructive pulmonary disease (HCC),COPD exacerbation (HCC) [...] Date Resolved Date COPD exacerbation ([facility]) 10/16/2016 05/03/20 17 Inflammation of sacroiliac joint ([facility]) 5 03/12/2017 Other abnormal glucose [...] Progress Notes * Khadijah Rehman RN - 07/29/2017 2:58 PM EST CM progress and f/u. Daniel called me back today reporting his breathing is worse x 1-2 weeks. He says any little bit of exertion he becomes very SOB and needs to rest to "catch my breath". He has been coughing a bit more and producing light yellow mucus. He is using his 02 usually at night. Encouraged to keep 02 on at all times. He does have an 02 sat and it runs 86-93%. Advised when below 92 he should keep the 02 on at all times. He is using his nebulizer 2-3 x daily. Encouraged to increase to every 4 hours especially now when he is more short of breath. His HR is 120-130's on the pulse ox at times. Explained his heart is beating faster trying to get more 02 so keep it on. Denies any fever or chills. Scheduled with Karina tomorrow at 1:45 pm due to increased SOB over the last couple weeks. Explainedhe may need an antibiotic again? He had pneumonia over the last few months. He is taking the Prednisone 10 mg daily as directed. Takes it with milk. He wrote down the appointment time for tomorrow while I was talking with him as he has a tendency to forget. He did see Dr Gill on 07-09-17 and no changes were made. He will need to get more Daliresp samples from pulm office next week. CM will recheck early next week. Khadijah Rehman, RN in this encounter Plan of Treatment Upcoming Encounters Date Type Specialty Care Team Description 07/30/2017 Office Visit Internal Medicine Karina Salmeron PA-C [address] [place] [address] [place] [address] [phone] 10/27/2017 Office Visit Internal Medicine Abram Owens MD [address] [place] [address] [place] [address] [phone] Health Maintenance Due Date Last Done Comments DTaP,Tdap,and Td Vaccines (1 - Tdap) 1947 LIPID SCREEN EVERY 5 YRS-MEN AGE 35-75 02/16/2013 02/17/2008 *ADVANCE DIRECTIVE NOT ON FILE 10/06/2016 *COLORECTAL CANCER SCREENING (COLONOSCOPY 10 YEARS; SIGMOIDOSCOPY 5 YEARS; COLOGUARD 3 YEARS; FOBT 1 YEAR),AGES 50-75 07/11/2017 PNEUMOCOCCAL ADULT 65 YRS AN D OVER (2 of 2 - PCV13) 04/27/2018 04/27/2017 LUNG CANCER SCREENING YEARLY -USE SMARTSET [id number] 06/23/2018 06/23/2017 DIABETES SCREEN EVERY 3 YRS- [...] Phone Address MEDICARE MEDICARE A AND B [id number] [place] as of this encounter
--- OUTSIDE RECORDS SUMMARY | 2023-04-08 23:30 | External Medical Summary | Summary of Care ---
Author Name Unknown Organization [place] [address] Phone Care Team Providers Care Shipping Point Inspector Name Role Phone Abram Owens MD Primary Care Provider [phone] Reason for Visit * Reason Comments MEDICATION QUESTION Encounter Details Date Type Department Care Team Description 08/03/2017 Pharmacy Pharmacy, [place] [address] [place] [address] Coordinator, Pharmacy Reimbursement [address] [place] [address] Severe chronic obstructive pulmonary disease [...] 07/28/2017 Active azithromycin (ZITHROMAX Z-ADA) 250 MG TabletIndications:Se abad chronic obstructive pulmonary disease (HCC),COPD exacerbation ([facility]) Take two tablets by mouth on first day, then 1 tablet daily until gone 6 Tab 0 07/30/2017 Active as of this encounter Active Problems Problem Noted Date Pneumonia 06/13/2017 Overview: left basal infiltrate Severe chronic obstructive pulmonary dis ease ([facility]) 10/28/2016 Overview: severe by ATS criteria. significant response after bronchodilator ADVANCE DIRECTIVE INFORMATION 02/01/2008 Overview: No, Advance Directive brochure given to patient. Tobacco use disorder 04/22/2005 Loss of teeth due to trauma, extraction, or periodontal disease as of this encounter Resolved Problems Problem Noted Date Resolved Date COPD exacerbation ([facility]) 10/16/2016 05/03/20 17 Inflammation of sacroiliac joint ([facility]) 5 03/12/2017 Other abnormal glucose [...] Progress Notes * Chele Gallardo OSA - 08/03/2017 11:28 AM EST Completed [employer], and [employer] applications for Proair HFA, Advair Diskus, and Daliresp and proof of income were received on 08/03/2017. The documents were already signed by Abram Owens MD. [facility] faxed applications 08/03/2017 If the patient is approved by the program, a 90 day supply of this medication should arrive at [address] [place] [address] in approximately 30 days. [facility] will follow up companies 10 days 08/12/2017 [employer] Cardiac Cath Lab Manager 08/03/2017, 11:28 AM in this encounter Plan of Treatment Upcoming Encounters Date Type Specialty Care Team Description 10/27/2017 Office Visit Internal Medicine Abram Owens MD [address] [place] [address] ABRAHAM MCCOLLUM [phone] Health Maintenance Due Date Last Done Comments [...] 04/27/2017 LUNG CANCER SCREENING YEARLY -USE SMARTSET 23690 06/23/2018 06/23/2017 DIABETES SCREEN EVERY 3 YRS- [...] Phone Address MEDICARE MEDICARE A AND B [id number] Medicare [place] as of this encounter
--- OUTSIDE RECORDS SUMMARY | 2023-04-08 23:30 | External Medical Summary | Summary of Care ---
Author Name Unknown Organization [place] [address] Phone Care Team Providers Care Pick Remover Name Role Phone Abram Quiroz MD Primary Care Provider [phone] Reason for Visit * Reason Comments MEDICATION REFILL Encounter Details Date Type Department Care Team Description 07/28/2017 Refill Internal Medicine [address] [address] Abram Quiroz MD [address] [place] [address] [place] [phone] SOB (shortness of breath) Allergies No Known Allergiesas of this encounter Medications Prescription Sig. Disp. Refills Start Date End Date Status MEDICAL INSTRUCTIONSIndica tions:Severe chronic obstructive pulmonary disease (HCC),COPD exacerbation ([facility]) Nebulizer and tubing 1 Each 1 03/12/2017 [...] 3 Disk Dosing Unit 1 07/28/2017 Active fluticasone-salmet umberto (ADVAIR DISKUS) 250-50 MCG/DOSE inhalerIndications :SOB (shortness of breath) Inhale 1 Puff by mouth 2 times a day. 1 Disk Dosing Unit 5 04/30/2017 8 Discontinued as of this encounter Active Problems Problem Noted Date Pneumonia 06/13/2017 Overview: left basal infiltrate Severe chronic obstructive pulmonary dis ease ([facility]) 10/28/2016 Overview: severe by ATS criteria. significant response after bronchodilator ADVANCE DIRECTIVE INFORMATION 02/01/2008 Overview: No, Advance Directive brochure given to patient. Tobacco use disorder 04/22/2005 Loss of teeth due to trauma, extraction, or periodontal disease as of this encounter Resolved Problems Problem Noted Date Resolved Date COPD exacerbation ([facility]) 10/16/2016 [...] Telephone Encounter - Abram Quiroz MD - 07/28/2017 4:51 PM EST Signed Prescriptions: Disp Refills fluticasone-salmeterol (ADVAIR DISKUS) 250*3 Disk*1 Sig: Inhale 1 Puff by mouth 2 times a day. Authorizing Provider: ABRAM QUIROZ * Telephone Encounter - Shantelle Jacobo RN - 07/28/2017 4:44 PM EST Please sign pended rx for patient assistance program. in this encounter Plan of Treatment Upcoming Encounters Date Type Specialty Care Team Description 10/27/2017 Office Visit Internal Medicine Abram Quiroz MD [address] [place] [address] ABRAHAM MCCOLLUM [phone] Health Maintenance Due Date Last Done Comments [...] 04/27/2017 LUNG CANCER SCREENING YEARLY -USE SMARTSET 38897 06/23/2018 06/23/2017 DIABETES SCREEN EVERY 3 YRS- AGE 45 AND ABOVE 06/23/2020 06/23/2017, 06/18/2017, 05/17/2017, Additional history exists Influenza Vaccine (FLU shot) Completed 11/2016, 03/12/2009, 04/24/2006, Additional history exists as of this encounter Implants Not on fileas of this encounter Visit Diagnoses Diagnosis SOB (shortness of breath) Shortness of breath in this encounter Insurance Payer Benefit Plan / Group Subscriber ID Type Phone Address MEDICARE MEDICARE A AND B [id number] [place] as of this encounter
--- OUTSIDE RECORDS SUMMARY | 2023-04-08 23:30 | External Medical Summary | Summary of Care ---
Author Name Unknown Organization [place] [address] Phone Care Team Providers Care Marketing Manager Health Communications Name Role Phone Abram Owens MD Primary Care Provider [phone] Reason for Visit * Reason Comments ADVICE Encounter Details Date Type Department Care Team Description 07/27/2017 Telephone Internal Medicine [address] [address] Abram Owens MD [address] [place] [phone] ADVICE Allergies No Known Allergiesas of this encounter Medications Prescription Sig. Disp. Refills Start Date End Date Status MEDICAL INSTRUCTIONSIndicati ons:Severe chronic obstructive pulmonary disease (HCC),COPD exacerbation ([facility]) Nebulizer and tubing 1 Each [...] or Wheezing. 1 Inhaler 5 04/30/2017 Active fluticasone-salmeter ol (ADVAIR DISKUS) 250-50 MCG/DOSE inhalerIndications:S OB (shortness of breath) Inhale 1 Puff by mouth 2 times a day. 1 Disk Dosing Unit 5 04/30/2017 Active oxygen GASIndications:Inc to 4LPM [...] with food 30 Tab 5 06/25/2017 Active as of this encounter Active Problems Problem Noted Date Pneumonia 06/13/2017 Overview: left basal infiltrate Severe chronic obstructive pulmonary dis ease ([facility]) 10/28/2016 Overview: severe by ATS criteria. significant response after bronchodilator ADVANCE DIRECTIVE INFORMATION 02/01/2008 Overview: No, Advance Directive brochure given to patient. Tobacco use disorder 04/22/2005 Loss of teeth due to trauma, extraction, or periodontal disease as of this encounter Resolved Problems Problem Noted Date Resolved Date COPD exacerbation ([facility]) 10/16/2016 05/03/20 17 Inflammation of sacroiliac joint ([facility]) 5 03/12/2017 Other abnormal glucose [...] Telephone Encounter - Shantelle Jacobo RN - 07/27/2017 3:02 PM EST Noted. * Telephone Encounter - Khadijah Rehman RN - 07/27/2017 2:53 PM EST I spoke with patient Daniel's daughter in law Tiara. She helped Daniel fill out forms to assist with his medicine coverage. He needs the rest filled out by Dr Owens and then mailed. I advised her to bring in and the forms will go to Dr's nurse and him. They can be filled out and then placed in the mail. She hopes to have them here tomorrow for PCP to complete. AUGUSTINE Rehman, FRANCES * Telephone Encounter - Marylin Meyers, JAH - 07/27/2017 1:13 PM EST Pt's girlfriend Tiara Gupta calling in asking for a Ana to call her back regarding some paperwork they received for the pt. She would like to discuss this and what they need to do about it. Please advise in this encounter Plan of Treatment Upcoming Encounters Date Type Specialty Care Team Description 10/27/2017 Office Visit Internal Medicine Abram Owens MD [address] [place] [address] ABRAHAM MCCOLLUM [phone] Health Maintenance Due Date Last Done Comments [...] 04/27/2017 LUNG CANCER SCREENING YEARLY -USE SMARTSET 13118 06/23/2018 06/23/2017 DIABETES SCREEN EVERY 3 YRS- AGE 45 AND ABOVE 06/23/2020 06/23/2017, 06/18/2017, 05/17/2017, Additional history exists Influenza Vaccine (FLU shot) Completed 11/2016, 03/12/2009, 04/24/2006, Additional history exists as of this encounter Implants Not on fileas of this encounter Insurance Payer Benefit Plan / Group Subscriber ID Type Phone Address MEDICARE MEDICARE A AND B [id number] [place] as of this encounter
--- OUTSIDE RECORDS SUMMARY | 2023-04-08 23:30 | External Medical Summary | Summary of Care ---
Author Name Unknown Organization [place] [address] Phone Care Team Providers Care [employer] Principal Name Role Phone Abram Mills MD Primary Care Provider Yoel brown Encounter Details Date Type Department Care Team Description 08/13/2017 [facility] [address] [address] [place], Khadijah Sunshine RN [address] [place] [address] [place] [phone] Severe chronic obstructive pulmonary disease (HCC)*;SOB (shortness of breath);Pneumonia due to Pseudomonas (HCC) Allergies No Known [...] chronic obstructive pulmonary dis ease ([facility]) 10/28/2016 Overview: severe by ATS criteria. significant response after bronchodilator ADVANCE DIRECTIVE INFORMATION 02/01/2008 Overview: No, Advance Directive brochure given to patient. Tobacco use disorder 04/22/2005 Loss of teeth due to trauma, extraction, or periodontal disease as of this encounter Resolved Problems Problem Noted Date Resolved Date COPD exacerbation ([facility]) 10/16/2016 05/03/20 17 Inflammation of sacroiliac joint ([facility]) 5 03/12/2017 Other abnormal glucose 04/23/2005 7 [...] Progress Notes * Khadijah Rehman RN - 08/13/2017 3:12 PM EST Case Management Assessment Is this call for a hospital, jail or rehab facility discharge to home? No S: Reports: Daniel was in and saw Karina on 07-30-17 for increased SOB, cough and congestion. She started him on Z-soto and he is feeling better. He says the mucus is now clear. It had been yellow. He admits that any type of exertion he gets quite SOB. He has to stop 1/2 to the car and rest. He is wearing his 02 as directed and using his nebulizer and inhalers. He did get inhalers delivered to his home. He had completed the forms for med assistance and Dr Mills ordered the medicines and form was mailed. He isn't sure when his next appointment with Dr Gill is? He will see Dr Mills in October. Eating and sleeping ok. He continues Prednisone 10 mg daily. Encouraged to call me with any concerns. O: Phone visit for CM 3 [...] plan. Identified Barriers: Older than 70 years P: Head Piece Assembler Interventions: Reinforce Self Management Action Plan established [...] goals achievement: Plan to call patient in 2-4 weeks to reassess and update plan of care, instructed to call Head Piece Assembler or Primary Care Provider with change in symptoms or as needed before next follow-up, verbalizes understanding and agrees with plan. Khadijah Rehman RN Outpatient Head Piece Assembler in this encounter Plan of Treatment Upcoming Encounters Date Type Specialty Care Team Description 10/11/2017 Pharmacy Salt Washer, Pharmacy Reimbursement [address] [facility] [place] [address] 10/27/2017 Office Visit Internal Medicine Abram Mills MD [address] [place] [address] [place] Burn[place] [address] Health Maintenance Due Date [...] 04/27/2017 LUNG CANCER SCREENING YEARLY -USE SMARTSET 49608 06/23/2018 06/23/2017 DIABETES SCREEN EVERY 3 YRS- AGE 45 AND ABOVE 06/23/2020 06/23/2017, 06/18/2017, 05/17/2017, Additional history exists Influenza Vaccine (FLU shot) Completed 11/2016, 03/12/2009, 04/24/2006, Additional history exists as of this encounter Implants Not on fileas of this encounter Visit Diagnoses Diagnosis Severe chronic obstructive p ulmonary disease (HCC) - Primary Chronic airway obstruction, not elsewhere classified SOB (shortness of breath) Shortness of breath Pneumonia due to Pseudomonas (HCC) Pneumonia due to Pseudomonas in this encounter Insurance Payer Benefit Plan / Group Subscriber ID Type Phone Address MEDICARE MEDICARE A AND B [id number] [place] as of this encounter
--- OUTSIDE RECORDS SUMMARY | 2023-04-08 23:30 | External Medical Summary | Summary of Care ---
Author Name Unknown Organization [place] [address] Phone Care Team Providers Care Data Collection Technician Name Role Phone Abram Owens MD Primary Care Provider [phone] Reason for Visit * Reason Comments MEDICATION QUESTION Encounter Details Date Type Department Care Team Description 07/12/2017 Pharmacy Pharmacy, [place] [address] [place], [place] [phone] Coordinator, Pharmacy Reimbursement [address], [place] [id number] Severe chronic obstructive pulmonary disease (HCC)* Allergies [...] infiltrate Severe chronic obstructive pulmonary dis ease ([facility]) 10/28/2016 Overview: severe by ATS criteria. significant response after bronchodilator ADVANCE DIRECTIVE INFORMATION 02/01/2008 Overview: No, Advance Directive brochure given to patient. Tobacco use disorder 04/22/2005 Loss of teeth due to trauma, extraction, or periodontal disease as of this encounter Resolved Problems Problem Noted Date Resolved Date COPD exacerbation ([facility]) 10/16/2016 05/03/20 17 [...] Progress Notes * Chele Gallardo OSA - 07/01/2017 4:23 PM EST Formatting of this note may be different from the original. Follow up needs made to patient [phone] (home) , Patient Phone Numbers Coverage:Medicare A and B (No D) RX:ALL Provider:Abram Owens MD Please call patient's daughter in law Tiara regarding PACENET and PAP applications. Phone number: [phone] Forms sent: 07/02/2017 [employer] Clinical Material Handler 07/01/2017 4:23 PM LMOM with Tiara to follow up applications. [employer] Clinical Material Handler 07/16/2017, 9:45 AM in this encounter Plan of Treatment Upcoming Encounters Date Type Specialty Care Team Description 10/27/2017 Office Visit Internal Medicine Abram Owens MD [address] [place] [address] ABRAHAM MCCOLLUM [phone] [phone] Health Maintenance Due Date Last Done Comments TETANUS EVERY 10 YEARS-TDAP (BOOSTRIX OR ADACEL) SUGGESTED IF NOT RECEIVED IN THE PAST. 11/27/2007 LIPID SCREEN EVERY 5 YRS-MEN AGE 35-75 02/16/2013 02/17/2008 *ADVANCE DIRECTIVE NOT ON FILE 10/06/2016 *COLORECTAL CANCER SCREENING (COLONOSCOPY 10 YEARS; SIGMOIDOSCOPY 5 YEARS; COLOGUARD 3 YEARS; FOBT 1 YEAR),AGES 50-75 07/11/2017 PNEUMOCOCCAL ADULT 65 YRS AN D OVER (2 of 2 - PCV13) 04/27/2018 04/27/2017 LUNG CANCER SCREENING YEARLY -USE SMARTSET 25152 06/23/2018 06/23/2017 DIABETES SCREEN EVERY 3 YRS- [...] Phone Address MEDICARE MEDICARE A AND B [id number] [place] as of this encounter
--- OUTSIDE RECORDS SUMMARY | 2023-04-08 23:30 | External Medical Summary | Summary of Care ---
Author Name Unknown Organization [place] [address] Phone Care Team Providers Care Meter Attendant Name Role Phone Abram Owens MD Primary Care Provider [phone] Reason for Visit * Reason Comments Acute Encounter Details Date Type Department Care Team Description 07/30/2017 Office Visit Internal Medicine [address] [address] Karina Salmeron PA-C [address] [place] [address] [place] [address] [phone] Severe chronic obstructive pulmonary disease (HCC)*;Tobacco use disorder;Risk and functional assessment;COPD exacerbation (HCC) Allergies No Known Allergiesas of [...] Active azithromycin (ZITHROMAX Z-ADA) 250 MG TabletIndications: pollo chronic obstructive pulmonary disease (HCC),COPD exacerbation ([facility]) Take two tablets by mouth on first day, then 1 tablet daily until gone 6 Tab 0 07/30/2017 Active as of this encounter Active Problems Problem Noted Date Pneumonia 06/13/2017 Overview: left basal infiltrate Severe chronic obstructive pulmonary dis ease ([facility]) 10/28/2016 Overview: severe by ATS criteria. significant response after bronchodilator ADVANCE DIRECTIVE INFORMATION 02/01/2008 Overview: No, Advance Directive brochure given to patient. Tobacco use disorder 04/22/2005 Loss of teeth due to trauma, extraction, or periodontal disease as of this encounter Resolved Problems Problem Noted Date Resolved Date COPD exacerbation ([facility]) 10/16/2016 05/03/20 17 Inflammation of sacroiliac joint ([facility]) 200 5 03/12/2017 Other abnormal glucose 04/23/2005201 7 Overview: glucose 156 SPRAIN SACROILIAC 03/19/2005 05/03/2017 Other specified disorders of rotator cuff syndrome of shoulder and allied disorders 05/23/2004 05/03/2017 Overview: right shoulder Other disorders of vitreous 06/07 as of this encounter Immunizations Name Dates Previously Given Next Due PPD 04/22/2005 Pneumococcal Polyvalent Vacc (Pneumovax) 017 Seasonal Influenza, Quadriva cathyt, No Preserve, 6 Mons & Above, IM [...] Vital Sign Reading Time Taken Blood Pressure 106/60 07/30/2017 1:43 PM EST Pulse 84 07/30/2017 1:43 PM EST Temperature 37 C (98.6 F) 07/30/2017 1:4 3 PM EST Respiratory Rate 20 07/30/2017 1:43 PM EST Oxygen Saturation - - Inhaled Oxygen Concentration - - Weight 59 kg (130 lb) 07/30/2017 1:43 PM EST Height - - Body Mass Index 20.03 07/30/2017 1:43 PM EST in this encounter Instructions * Patient Instructions - Ligia Connors LPN - 07/30/2017 1:48 PM EST Patient Instructions - Fall Prevention Remember to take your current medications as prescribed. In order to prevent falls, you are encouraged to: Exercise Utilize assistive/adaptive devices Avoid multifocal lenses when walking Avoid hazards in home Maintain a regular toileting schedule Any questions please contact our office. Preventing Falls in the Home As you get older, falls are more [...] Improve Balance, Flexibility, Strength, and Staying Power Certain types of exercises may help make [...] 10 times. Repeat this throughout the day. Ananth Patient Education Copyright 2009 - 2010 Ananth except where otherwise noted. Preventing Falls: Moving Safely Using a Cane or Walker Keep the cane away from your feet [...] 2008 - 2010 Ananth except where otherwise noted. Treating Urinary Incontinence in Men You can't always control the release of [...] prostate surgery can result in permanent incontinence. in this encounter Progress Notes * Karina Salmeron PA-C - 07/30/2017 1:44 PM EST Formatting of this note may be different from the original. Nursing Notes: Ligia Connors, LARISA 07/30/17 1326 Signed Pt is here for SOB, pt said he is not able to go very far, pt using his inhaler and nebulizer, , chest feel tight , yellow and green sputum , for the past week Pt here today with cough, chest congestion, SOB, wheezing. Pt does have severe COPD, on O2, 28/12. Pt states that he doesn't wear his O2, all the time, when he is up and walking around. Pt always has the SOB but recently started with colored sputum production. Pt denies fever, chills, nausea, vomiting, diarrhea, sinus pain/pressure, nasal/head congestion, ear pain, sore throat. Pt is taking all inhalers, using neb, taking prednisone daily. Review of patient's allergies indicates: No Known Allergies Current Outpatient Prescriptions Medication Sig Dispense Refill albuterol (PROAIR HFA) 108 (90 BASE) MCG/ACT inhaler Inhale 2 Puffs by mouth every 4 hours as needed for Shortness of Breath or Wheezing. 1 Inhaler 5 albuterol sulfate (PROVENTIL) (2.5 MG/3ML) 0.083% nebulizer solution Inhale 1 Vial via nebulizer every 4 hours as needed for Wheezing. 120 Vial 11 fluticasone-salmeterol (ADVAIR DISKUS) 250-50 MCG/DOSE inhaler Inhale [...] Take 500 mcg by mouth daily. Indications: [facility] has provided samples for pt-he can get more when needed.) 30 Tab 5 THIAMINE (VITAMIN B-1) 100 MG Tablet Take 100 mg by mouth daily. Past Medical History: Diagnosis Date Acute exacerbation of COPD with asthma ([facility]) 04/23/2017 [facility] Inflammation of sacroiliac joint ([facility]) 04/24/05 Loss of teeth due to trauma, extraction, or periodontal disease Other abnormal glucose 04/23/05 glucose 156 Other abnormal glucose 02/22/08 glucose 167 Other disorders of vitreous 12/05 Posterior vitreous detachment OS Other specified disorders of rotator cuff syndrome of shoulder and allied disorders 05/10 right shoulder Pneumonia 06/13/2017 left basal infiltrate Pneumonia due to Pseudomonas ([facility]) 05/20/2017 Severe chronic obstructive pulmonary disease (HCC) 10/28/2016 severe by ATS criteria. significant response after bronchodilator TICK BITE RIGHT FOOT 02/09 Tobacco use disorder Social History Social History Marital status: Spouse name: N/A Number of children: 6 Years of education: N/A Occupational History Not on file. Social History Main Topics Smoking status: Former Smoker Packs/day: 2.00 Years: 50.00 Types: Cigarettes Quit date: 04/07/2016 Smokeless tobacco: Never Used Comment: started age 16 Alcohol use Yes Comment: 3-4 beers per day Drug use: No Sexual activity: Yes Partners: Female Other Topics Concern Not on file Social History Narrative O:Blood pressure 106/60, pulse 84, temperature 37 C (98.6 F), temperature source Tympanic, resp. rate 20, weight 59 kg (130 lb). GENERAL: alert, no distress, well nourished and well developed NECK: supple, no adenopathy EYES: PERRLA, Conjunctiva are pink and non-injected, sclera clear EARS: External ears normal, Canals clear, TM's Normal NOSE: no mucosal erythema, no mucosal edema, no purulent discharge, no septal hematoma OROPHARYNX: no exudate, no erythema, lips, buccal mucosa, and tongue normal and mucous membranes are moist HEART: regular rate & rhythm, no murmurs and no gallops LUNGS: chest symmetric with normal AP diameter, no chest deformities noted, no chest wall tenderness, lungs clear to auscultation, decreased breath sounds A:J44.9 Severe chronic obstructive pulmonary disease (hcc) (primary encounter diagnosis) Plan: Azithromycin 250 mg po tabs Sig:Take two tablets by mouth on first day, then 1 tablet daily until gone F17.200 Tobacco use disorder Z13.9 Risk and functional assessment Plan: Pat scrn for fall risk Pres or abs of urin incont as J44.1 Copd exacerbation (hcc) Plan: Azithromycin 250 mg po tabs Sig:Take two tablets by mouth on first day, then 1 tablet daily until gone Start above med. Rest, fluids. Any questions/problems, please call. Continue inhalers and prednisone. Follow up: Return if symptoms worsen or fail to improve. Karina Salmeron PA-C in this encounter Nursing Notes * Ligia Connors LPN - 07/30/2017 1:44 PM EST Pt is here for SOB, pt said he is not able to go very far, pt using his inhaler and nebulizer, , chest feel tight , yellow and green sputum , for the past week in this encounter Plan of Treatment Upcoming Encounters Date Type Specialty Care Team Description 07/30/2017 Office Visit Internal Medicine Karina Salmeron PA-C [address] [place] [address] [place] [address] [phone] Severe chronic obstructive pulmonary disease (HCC)*;Tobacco use disorder;Risk and functional assessment;COPD exacerbation (HCC) 10/27/2017 Office Visit Internal Medicine Abram Owens MD [address] [place] [address] [place] [address] [phone] Health Maintenance Due Date Last Done Comments [...] 04/27/2017 LUNG CANCER SCREENING YEARLY -USE SMARTSET 33629 06/23/2018 06/23/2017 DIABETES SCREEN EVERY 3 YRS- AGE 45 AND ABOVE 06/23/2020 06/23/2017, 06/18/2017, 05/17/2017, Additional history exists Influenza Vaccine (FLU shot) Completed 11/2016, 03/12/2009, 04/24/2006, Additional history exists as of this encounter Implants Not on fileas of this encounter Visit Diagnoses Diagnosis Severe chronic obstructive p ulmonary disease (HCC) - Primary Chronic airway obstruction, not elsewhere classified Tobacco use disorder Risk and functional assessme nt Screening for unspecified condition COPD exacerbation (HCC) Obstructive chronic bronchitis with exacerbation in this encounter Insurance Payer Benefit Plan / Group Subscriber ID Type Phone Address MEDICARE MEDICARE A AND B [id number] [place] as of this encounter
--- OUTSIDE RECORDS SUMMARY | 2023-04-08 23:30 | External Medical Summary | Summary of Care ---
Author Name Unknown Organization [place] [address] Phone Care Team Providers Care Concrete Mixer Truck Driver Name Role Phone Abram Owens MD Primary Care Provider Unava ilable Reason for Visit * Reason Comments MEDICATION QUESTION Encounter Details Date Type Department Care Team Description 08/19/2017 Pharmacy Pharmacy, [place] [address], [place] [id number] Coordinator, Pharmacy [facility] [address], [place] [id number] Severe chronic obstructive pulmonary disease (HCC)* Allergies [...] Progress Notes * Chele Gallardo OSA - 08/19/2017 1:10 PM EDT PRC received Drug Utilization Review request from [employer]. PRC completed request and faxed to [phone]. Scanned into [employer] website. JAH [employer] Top Lift Compresser 08/19/2017, 1:12 PM in this encounter Plan of Treatment Upcoming Encounters Date Type Specialty Care Team Description 08/19/2017 Pharmacy Well Tester, Pharmacy Reimbursement [address] [place] [address] Severe chronic obstructive pulmonary disease (HCC)* 08/23/2017 Pharmacy Well Tester, Pharmacy Reimbursement [address] [place] [address] 10/11/2017 Pharmacy Well Tester, Pharmacy Reimbursement [address] [place] [address] 10/27/2017 Office Visit Internal Medicine Abram Owens MD [address] [place] [address] [place] [address] Health Maintenance Due Date [...] 04/27/2017 LUNG CANCER SCREENING YEARLY -USE SMARTSET [id number] 06/23/2018 06/23/2017 DIABETES SCREEN EVERY 3 YRS- [...] Phone Address MEDICARE MEDICARE A AND B [id number] Medicare [place] as of this encounter
--- OUTSIDE RECORDS SUMMARY | 2023-04-08 23:30 | External Medical Summary | Summary of Care ---
Author Name Unknown Organization [place] [address] Phone Care Team Providers Care Supervisor Reclamation Name Role Phone Abram Owens MD Primary Care Provider Reason for Visit * Reason Comments MED REQUEST Encounter Details Date Type Department Care Team Description 08/23/2017 Telephone Internal Medicine [address] [address] OhsKhadijah RN [address] [place] [address] [place] [address] MED REQUEST Allergies No Known Allergiesas [...] chronic obstructive pulmonary dis ease ([facility]) 10/28/2016 Overview: severe by ATS criteria. significant response after bronchodilator ADVANCE DIRECTIVE INFORMATION 02/01/2008 Overview: No, Advance Directive brochure given to patient. Tobacco use disorder 04/22/2005 Loss of teeth due to trauma, extraction, or periodontal disease as of this encounter Resolved Problems Problem Noted Date Resolved Date COPD exacerbation ([facility]) 10/16/2016 05/03/20 17 Inflammation of sacroiliac joint ([facility]) 5 03/12/2017 Other abnormal glucose [...] rx went to Re[facility] @ [facility] * Telephone Encounter - Khadijah Rehman RN - 08/23/2017 3:13 PM EDT Daniel needs his Albuterol for nebulizer refilled. [facility] [place]. Thanks, Khadijah Rehman, RN in this encounter Plan of Treatment Upcoming Encounters Date Type Specialty Care Team Description 10/11/2017 Pharmacy Communications Project Lead, [facility] [address] [facility] [address] 10/27/2017 Office Visit Internal Medicine Abram Owens MD [address] [place] [address] [place] [address] Health Maintenance Due Date [...] 04/27/2017 LUNG CANCER SCREENING YEARLY -USE SMARTSET 45838 06/23/2018 06/23/2017 DIABETES SCREEN EVERY 3 YRS- [...] Phone Address MEDICARE MEDICARE A AND B [id number] Medicare [place] as of this encounter
--- OUTSIDE RECORDS SUMMARY | 2023-04-08 23:30 | External Medical Summary | Summary of Care ---
Author Name Unknown Organization [place] [address] Phone Care Team Providers Care Medical Resident Name Role Phone Abram Owens MD Primary Care Provider Reason for Visit * Reason Comments MED REQUEST Encounter Details Date Type Department Care Team Description 08/23/2017 Telephone Internal Medicine [address] [address] OhsKhadijah RN [address] [place] [address] [place] [address] MED REQUEST Allergies No Known Allergiesas [...] Date Resolved Date COPD exacerbation ([facility]) 10/16/2016 05/03/20 17 Inflammation of sacroiliac joint [facility] [...] refilled. Order needs faxed to [facility] in [place]. Thanks, Khadijah Rehman, RN in this encounter Plan of Treatment Upcoming Encounters Date Type Specialty Care Team Description 10/11/2017 Pharmacy Repeater Operator, Pharmacy Reimbursement [address] [place] [address] [phone] 10/20/2017 Pharmacy Repeater Operator, Pharmacy Reimbursement [address] [place] [address] [phone] 10/27/2017 Office Visit Internal Medicine Abram Owens MD [address] [place] [address] [place] [address] Health Maintenance Due Date [...] 04/27/2017 LUNG CANCER SCREENING YEARLY -USE SMARTSET [id number] 06/23/2018 06/23/2017 DIABETES SCREEN EVERY 3 YRS- [...] Phone Address MEDICARE MEDICARE A AND B [id number] [place] as of this encounter
--- OUTSIDE RECORDS SUMMARY | 2023-04-08 23:31 | External Medical Summary | Summary of Care ---
Author Name Unknown Organization [place] [address] Phone Care Team Providers Care Toll Line Inspector Name Role Phone Abram Owens MD Primary Care Provider [phone] Encounter Details Date Type Department Care Team Description 06/30/2017 Furnace Process SupervisorFinance Vice President Medicine [address] [address] Ohs, Khadijah Sunshine RN [address] [place] [address] Severe chronic obstructive pulmonary disease (HCC)*;Pneumonia due to Pseudomonas (HCC);SOB (shortness of breath) Allergies No Known Allergiesas [...] of this encounter Progress Notes * Khadijah Rehman, RN - 06/30/2017 2:58 PM EST CM f/u for COPD exacerbation and recent hospital stay. Daniel says he feels pretty good today. He has a pulse oximeter at home. He checked his 02 while I wastalking to him and it was 97% with 02 on. He does admit that when he walks back to the bathroom he doesn't use his 02 at times and his 02 drops to 88%. Encouraged to increase 02 to 4 LPM when ambulating. He is now on Prednisone 10 mg daily ordered by Dr Owens. He thinks that is helping some. Remindedto take with food to prevent GI irritation. His bowels are moving and voiding well. He does admit that he solo chest tightness when he is up and active at times. He is scheduled to see Dr Gill Wednesday07-02-17. He will ask for more Daliresp samples. CM will f/u again in a couple weeks. Khadijah Rehman, RN in this encounter Plan of Treatment Upcoming Encounters Date Type Specialty Care Team Description 10/27/2017 Office Visit Internal Medicine Abram Owens MD [address] [place] [address] [place] [id number] Health Maintenance Due Date Last Done Comments COLONOSCOPY-EVERY 10 YRS AGE S 50-75 1992 TETANUS EVERY 10 YEARS-TDAP (BOOSTRIX OR ADACEL) SUGGESTED IF NOT RECEIVED IN THE PAST. 11/27/2007 LIPID SCREEN EVERY 5 YRS-MEN AGE 35-75 02/16/2013 02/17/2008 *ADVANCE DIRECTIVE NOT ON FILE 10/06/2016 PNEUMOCOCCAL ADULT 65 YRS AN D OVER (2 of 2 - PCV13) 04/27/2018 04/27/2017 LUNG CANCER SCREENING YEARLY -USE SMARTSET 35515 06/23/2018 06/23/2017 DIABETES SCREEN EVERY 3 YRS- AGE 45 AND ABOVE 06/23/2020 06/23/2017, 06/18/2017, 05/17/2017, Additional history exists Influenza Vaccine (FLU shot) Completed 11/2016, 03/12/2009, 04/24/2006, Additional history exists as of this encounter Implants Not on fileas of this encounter Visit Diagnoses Diagnosis Severe chronic obstructive p ulmonary disease (HCC) - Primary Chronic airway obstruction, not elsewhere classified Pneumonia due to Pseudomonas (HCC) Pneumonia due to Pseudomonas SOB (shortness of breath) Shortness of breath in this encounter Insurance Payer Benefit Plan / Group Subscriber ID Type Phone Address MEDICARE MEDICARE A AND B [id number] [place] as of this encounter
--- OUTSIDE RECORDS SUMMARY | 2023-04-08 23:31 | External Medical Summary | Summary of Care ---
Author Name Unknown Organization [place] [address] Phone Care Team Providers Care Crossing Gateman Name Role Phone Abram Owens MD Primary Care Provider [phone] Encounter Details Date Type Department Care Team Description 06/18/2017 Documentation Radiology [address] [place] [address] [place] [address] [phone] Aspiration pneumonia, unspecified aspiration pneumonia type, unspecified laterality, unspecified part of lung (HCC)* Allergies No Known Allergiesas of this encounter Medications Prescription Sig. Disp. Refills Start Date End Date Status MEDICAL INSTRUCTIONSIndicat ions:Severe chronic obstructive pulmonary disease (HCC),COPD exacerbation (HCC) Nebulizer and tubing 1 Each 1 03/12/2017 Active albuterol sulfate (PROVENTIL) (2.5 MG/3ML) 0.083% nebulizer solutionIndications :Severe chronic obstructive pulmonary disease (HCC),COPD exacerbation (HCC) [...] or Wheezing. 1 Inhaler 5 04/30/2017 Active fluticasone-salmete rol (ADVAIR DISKUS) 250-50 MCG/DOSE [...] mouth daily. 30 Tab 5 05/25/2017 Active levofloxacin (LEVAQUIN) 500 MG TabletIndications:x 10 days for unresolved pneumonia Take 500 mg by mouth daily. Indications: x 10 days for unresolved pneumonia 06/14/2017 06/23/2017 Active as of this encounter Active Problems [...] 17 Inflammation of sacroiliac joint ([facility]) 5 03/12/2017 Other abnormal glucose 04/23/2005 [...] Not on file as of this encounter Nursing Notes * Data, Entry - 06/19/2017 5:30 AM EST Automated conversion to a Documentation Encounter in this encounter Plan of Treatment Upcoming Encounters Date Type Specialty Care Team Description 10/27/2017 Office Visit Internal Medicine Abram Owens MD [address] [place] [address] [place] [address] [phone] Health Maintenance Due Date Last Done Comments COLONOSCOPY-EVERY 10 YRS AGE S 50-75 1992 LUNG CANCER SCREENING YEARLY -USE SMARTSET [address]1538 1997 TETANUS EVERY 10 YEARS-TDAP (BOOSTRIX OR ADACEL) SUGGESTED IF NOT RECEIVED IN THE PAST. 11/27/2007 LIPID SCREEN EVERY 5 YRS-MEN AGE 35-75 02/16/2013 02/17/2008 *ADVANCE DIRECTIVE NOT ON FILE 10/06/2016 PNEUMOCOCCAL ADULT 65 YRS AN D OVER (2 of 2 - PCV13) 04/27/2018 04/27/2017 DIABETES SCREEN EVERY 3 YRS- AGE 45 AND ABOVE 06/18/2020 06/18/2017, 05/17/2017, 03/07/2017, Additional history exists Influenza Vaccine (FLU shot) Completed 11/2016, 03/12/2009, 04/24/2006, Additional history exists as of this encounter Implants Not on fileas of this encounter Results * XR CHEST 2 VIEWS (06/18/2017 10:09 AM) Specimen Performing Laborator y [facility] [address] [facility] [place] [address] Narrative EXAM CHEST two views HISTORY Pneumonia. TECHNIQUE COMPARISON 10/01/2016. FINDINGS The cardiomediastinal silhouette is within normal limits.The lungs are hyperinflated with flattening of the diaphragms, suggestive of COPD.There is linear scarring in the left middle lung, unchanged.Subsegmental atelectasis in the left lower lung laterally, new.No pleural effusion, focal airspace consolidation, pulmonary vascular congestion, or pneumothorax.Stable biapical pleural thickening.Degenerative changes of the thoracic spine. IMPRESSION No acute cardiopulmonary abnormality identified radiographically.Findings are suggestive of COPD. Subsegmental atelectasis in the left lung base laterally. Authenticated By Authenticating DateAuthenticating TimeReading Providers(s) DANDRE GONSALVES,PHD 06-21-2017 08:24DANDRE GONSALVES,PHD Procedure Note Interface, Rad In - 06/21/2017 8:24 AM EST EXAM CHEST two views HISTORY Pneumonia. TECHNIQUE COMPARISON 10/01/2016. FINDINGS The cardiomediastinal silhouette is within normal limits. The lungs arehyperinflated with flattening of the diaphragms, suggestive of COPD. There is linear scarring in the leftmiddle lung, unchanged. Subsegmental atelectasis in the left lower lung laterally, new. No pleural effusion,focal airspace consolidation, pulmonary vascular congestion, or pneumothorax. Stable biapical pleuralthickening. Degenerative changes of the thoracic spine. IMPRESSION No acute cardiopulmonary abnormality identified radiographically.Findings are suggestive of COPD. Subsegmental atelectasis in the left lung base laterally. Authenticated By Authenticating Date AuthenticatingTime Reading Providers(s) RYAN DECKER MD,PHD 06-21-2017 08:24RYAN DECKER MD,PHD in this encounter Visit Diagnoses Diagnosis Aspiration pneumonia, unspec ified aspiration pneumonia type, unspecified laterality, unspecified part of lung (HCC) - Primary in this encounter Insurance Payer Benefit Plan / Group Subscriber ID Type Phone Address MEDICARE MEDICARE A AND B [id number] Medicare [place] as of this encounter
--- OUTSIDE RECORDS SUMMARY | 2023-04-08 23:31 | External Medical Summary | Summary of Care ---
Author Name Unknown Organization [facility] [address] Phone Care Team Providers Care Systems Programmer Name Role Phone Abram Owens MD Primary Care Provider [phone] Encounter Details Date Type Department Care Team Description 06/25/2017 Orders Only Internal Medicine [address] [address] Abram Owens MD [address] [place] [address] [phone] Allergies No Known Allergiesas of this encounter [...] infiltrate Severe chronic obstructive pulmonary dis ease ([facility]) 10/28/2016 Overview: severe by ATS criteria. significant response after bronchodilator ADVANCE DIRECTIVE INFORMATION 02/01/2008 Overview: No, Advance Directive brochure given to patient. Tobacco use disorder 04/22/2005 Loss of teeth due to trauma, extraction, or periodontal disease as of this encounter Resolved Problems Problem Noted Date Resolved Date COPD exacerbation ([facility]) 10/16/2016 05/03/20 17 Inflammation of sacroiliac joint ([facility]) 5 03/12/2017 Other abnormal glucose [...] Visit Internal Medicine Abram Owens MD [address] [place] [address] [place] [address] [phone] Pending Results Name Priority Associated Diagnoses Date/Ti me CHEST CT WITH IV CONTRAST Routine 12:00 AM EST Health Maintenance Due Date Last Done Comments COLONOSCOPY-EVERY 10 YRS AGE S 50-75 1992 LUNG CANCER SCREENING YEARLY -USE SMARTSET [address] 1997 TETANUS EVERY 10 YEARS-TDAP (BOOSTRIX OR [...] Phone Address MEDICARE MEDICARE A AND B [id number] Medicare [place] as of this encounter
--- OUTSIDE RECORDS SUMMARY | 2023-04-08 23:31 | External Medical Summary ---
Author Name Unknown Address [address] [place] [address] Phone Organization K01:[facility] [address] [facility] [address] Laboratory Report Ordering Provider Test Date Status GABRIELLA WEBB 06/18/2017 09:59:00 Final Observation Date Value Abnormality Reference Status BUN 06/18/2017 22:37 11 6-20 Fin al Creatinine 06/18/2017 22:37 1.1 0.6-1.2 Fi nal GFR should be used to assess renal function. Plasma/Serum creatinine may not be able to properly reflect renal function in some cases. Sodium 06/18/2017 22:37 138 135-146 Fin al Potassium 06/18/2017 22:37 3.8 3.5-5.1 Fin al Cl 06/18/2017 22:37 96 Below low normal 98-107 Final CO2 06/18/2017 22:37 26 22-32 Fin al Anion gap 06/18/2017 22:37 16 Above high normal 7-15 Final Glucose 06/18/2017 22:37 115 70-120 Fin al Calcium 06/18/2017 22:37 9.1 8.4-10.2 Fin al E Glom Filt Rate 06/18/2017 22:37 >60.0 >60 Final If patient is [place], multiply estimated GFR by 1.159. Performing Location [place] [address] [address] [facility] [address]
--- OUTSIDE RECORDS SUMMARY | 2023-04-08 23:31 | External Medical Summary | Summary of Care ---
Author Name Unknown Organization [place] [address] Phone Care Team Providers Care Nurses' Aide Name Role Phone Abram Owens MD Primary Care Provider [phone] Encounter Details Date Type Department Care Team Description 06/18/2017 Principal Statistical ProgrammerLocal Combination Truck Driver Medicine [address] [address] Ohs, Khadijah Sunshine RN [address] [place] [address] [place] [id number] Severe chronic obstructive pulmonary disease (HCC)*;Pneumonia of left lower lobe due to infectious organism (HCC);Pneumonia due to Pseudomonas ([facility]) Allergies No Known Allergiesas of this encounter Medications Prescription Sig. Disp. Refills Start Date End Date Status MEDICAL INSTRUCTIONSIndicat ions:Severe chronic obstructive pulmonary disease (HCC),COPD exacerbation ([facility]) Nebulizer and tubing 1 Each [...] Problem Noted Date Resolved Date COPD exacerbation ([facility]) 10/16/2016 05/03/20 17 Inflammation of sacroiliac joint ([facility]) 5 03/12/2017 Other abnormal glucose [...] Progress Notes * Khadijah Rehman RN - 06/18/2017 10:34 AM EST Week 4 SULEMA for hospital for pneumonia/COPD as well as ER f/u for unresolved pneumonia. Met face to face today with Daniel and his Violeta prior to OV with Dr Owens. Daniel says he still doesn't feel good and his breathing is terrible. He was seen on Wednesday06-13-17 at [facility] ER due to worsening breathing and coughing. CXR revealed unresolved LLL pneumonia. He continueson the Levaquin for a total of 10 days. He is using his inhalers and nebulizer as directed. Wearinghis 02 continuously as directed. He can turn to 4 LPM for activities. His accompanies him today. She has had the GI flu. He was up during the night with diarrhea. Advised to drink lots of fluids to prevent dehydration. He denies any vomiting. He is alert and oriented. He was able to obtain his Daliresp from [facility] as they have samples. He is to let them knowwhen he needs more. Dr Owens ordered a chest CT, repeat CXR and labs today. CM will f/u again next week. Khadijah Rehman RN in this encounter Plan of Treatment Upcoming Encounters Date Type Specialty Care Team Description 10/27/2017 Office Visit Internal Medicine Abram Owens MD [address] [place] [address] [place] [address] [phone] Health Maintenance Due Date Last Done Comments COLONOSCOPY-EVERY 10 YRS AGE S 50-75 1992 LUNG CANCER SCREENING YEARLY -USE SMARTSET 26694 1997 TETANUS EVERY 10 YEARS-TDAP (BOOSTRIX OR ADACEL) SUGGESTED IF NOT RECEIVED IN THE PAST. 11/27/2007 LIPID SCREEN EVERY 5 YRS-MEN AGE 35-75 02/16/2013 02/17/2008 *ADVANCE DIRECTIVE NOT ON FILE 10/06/2016 PNEUMOCOCCAL ADULT 65 YRS AN D OVER (2 of 2 - PCV13) 04/27/2018 04/27/2017 DIABETES SCREEN EVERY 3 YRS- AGE 45 AND ABOVE 05/17/2020 05/17/2017, 03/07/2017, 10/01/2016, Additional history exists Influenza Vaccine (FLU shot) Completed 11/2016, 03/12/2009, 04/24/2006, Additional history exists as of this encounter Implants Not on fileas of this encounter Visit Diagnoses Diagnosis Severe chronic obstructive p ulmonary disease (HCC) - Primary Chronic airway obstruction, not elsewhere classified Pneumonia of left lower lobe due to infectious organism (HCC) Pneumonia due to Pseudomonas (HCC) Pneumonia due to Pseudomonas in this encounter Insurance Payer Benefit Plan / Group Subscriber ID Type Phone Address MEDICARE MEDICARE A AND B [id number] Medicare [place] as of this encounter
--- OUTSIDE RECORDS SUMMARY | 2023-04-08 23:31 | External Medical Summary | Summary of Care ---
Author Name Unknown Organization [place] [address] Phone Care Team Providers Care Care Taker Name Role Phone Abram Owens MD Primary Care Provider [phone] Encounter Details Date Type Department Care Team Description 06/24/2017 Orders Only Internal Medicine [address] [address] Abram Owens MD [address] [place] [address] [phone] Allergies No Known Allergiesas of this encounter [...] mouth daily. 30 Tab 5 05/25/2017 Active as of this encounter Active Problems Problem Noted Date Pneumonia 06/13/2017 Overview: left basal infiltrate Severe chronic obstructive pulmonary dis ease ([facility]) 10/28/2016 Overview: severe by ATS criteria. significant response after bronchodilator ADVANCE DIRECTIVE INFORMATION 02/01/2008 Overview: No, Advance Directive brochure given to patient. Tobacco use disorder 04/22/2005 Loss of teeth due to trauma, extraction, or periodontal disease as of this encounter Resolved Problems Problem Noted Date Resolved Date COPD exacerbation ([facility]) 10/16/2016 05/03/20 17 Inflammation of sacroiliac joint ([facility]) 5 03/12/2017 Other abnormal glucose [...] Encounters Date Type Specialty Care Team Description 06/25/2017 Office Visit Internal Medicine Abram Owens MD [address] [place] [address] [place] [address] [phone] 10/27/2017 Office Visit Internal Medicine Abram Owens MD [address] [place] [address] [place] [address] [phone] Pending Results Name Priority Associated Diagnoses Date/Ti me Chemistry-Outside Routine 06/23/2017 12:00 AM EST Health Maintenance Due Date Last Done Comments COLONOSCOPY-EVERY 10 YRS AGE S 50-75 1992 LUNG CANCER SCREENING YEARLY -USE SMARTSET 27040 1997 TETANUS EVERY 10 YEARS-TDAP (BOOSTRIX OR [...] Phone Address MEDICARE MEDICARE A AND B [id number] [place] as of this encounter
--- OUTSIDE RECORDS SUMMARY | 2023-04-08 23:31 | External Medical Summary | Summary of Care ---
Author Name Unknown Organization [place] [address] Phone Care Team Providers Care Valet Name Role Phone Abram Owens MD Primary Care Provider [phone] Encounter Details Date Type Department Care Team Description 06/25/2017 Orders Only Internal Medicine [address] [address] Abram Owens MD [address] [place] [address] [phone] Allergies No Known Allergiesas of this encounter [...] infiltrate Severe chronic obstructive pulmonary dis ease ([facility]) 10/28/2016 Overview: severe by ATS criteria. significant response after bronchodilator ADVANCE DIRECTIVE INFORMATION 02/01/2008 Overview: No, Advance Directive brochure given to patient. Tobacco use disorder 04/22/2005 Loss of teeth due to trauma, extraction, or periodontal disease as of this encounter Resolved Problems Problem Noted Date Resolved Date COPD exacerbation ([facility]) 10/16/2016 [...] Visit Internal Medicine Abram Owens MD [address] [place] [address] [place] [address] [phone] Pending Results Name Priority Associated Diagnoses Date/Ti me XR CHEST 1 VIEW Routine 06/25/2017 1 2:00 AM EST Health Maintenance Due Date Last Done Comments COLONOSCOPY-EVERY 10 YRS AGE S 50-75 1992 LUNG CANCER SCREENING YEARLY -USE SMARTSET 86300 1997 TETANUS EVERY 10 YEARS-TDAP (BOOSTRIX OR [...] Phone Address MEDICARE MEDICARE A AND B [id number] Medicare [place] as of this encounter
--- OUTSIDE RECORDS SUMMARY | 2023-04-08 23:31 | External Medical Summary | Summary of Care ---
Author Name Unknown Organization [place] [address] Phone Care Team Providers Care Vmware Consultant Name Role Phone Abram Owens MD Primary Care Provider [phone] Encounter Details Date Type Department Care Team Description 07/09/2017 Scan Encounter Unspecified Department <No scans attached> [...] infiltrate Severe chronic obstructive pulmonary dis ease ([facility]) 10/28/2016 Overview: severe by ATS criteria. significant response after bronchodilator ADVANCE DIRECTIVE INFORMATION 02/01/2008 Overview: No, Advance Directive brochure given to patient. Tobacco use disorder 04/22/2005 Loss of teeth due to trauma, extraction, or periodontal disease as of this encounter Resolved Problems Problem Noted Date Resolved Date COPD exacerbation ([facility]) 10/16/2016 05/03/20 17 Inflammation of sacroiliac joint ([facility]) 5 03/12/2017 Other abnormal glucose 04/23/2005201 7 [...] Visit Internal Medicine Abram Owens MD [address] [place] [address] [place] [address] [phone] Health Maintenance Due Date Last Done Comments [...] 04/27/2017 LUNG CANCER SCREENING YEARLY -USE SMARTSET 04247 06/23/2018 06/23/2017 DIABETES SCREEN EVERY 3 YRS- AGE 45 AND ABOVE 06/23/2020 06/23/2017, 06/18/2017, 05/17/2017, Additional history exists Influenza Vaccine (FLU shot) Completed 11/2016, 03/12/2009, 04/24/2006, Additional history exists as of this encounter Implants Not on fileas of this encounter Insurance Payer Benefit Plan / Group Subscriber ID Type Phone Address MEDICARE MEDICARE A AND B [id number] [place] of this encounter
--- OUTSIDE RECORDS SUMMARY | 2023-04-08 23:31 | External Medical Summary | Summary of Care ---
Author Name Unknown Organization [place] [address] Phone Care Team Providers Care Orchard Pruner Name Role Phone Abram Owens MD Primary Care Provider [phone] Encounter Details Date Type Department Care Team Description 06/18/2017 Documentation Radiology [address] [place] [address] [place] [address] [phone] Aspiration pneumonia, unspecified aspiration pneumonia type, unspecified [...] Visit Internal Medicine Abram Owens MD [address] [place] [address] [place] [address] [phone] Health Maintenance Due Date Last Done Comments COLONOSCOPY-EVERY 10 YRS AGE S 50-75 1992 LUNG CANCER SCREENING YEARLY -USE SMARTSET 42325 1997 TETANUS EVERY 10 YEARS-TDAP (BOOSTRIX OR [...] AM) Specimen Performing Laborator y [facility] [address] [place] [facility] [address] Narrative EXAM CHEST two views HISTORY Pneumonia. [...] Phone Address MEDICARE MEDICARE A AND B [id number] [place] as of this encounter
--- OUTSIDE RECORDS SUMMARY | 2023-04-08 23:31 | External Medical Summary | Summary of Care ---
Author Name Unknown Organization [place] [address] Phone Care Team Providers Care Neonatal Intensive Care Unit Nurse Name Role Phone Abram Owens MD Primary Care Provider [phone] Encounter Details Date Type Department Care Team Description 06/13/2017 Scan Encounter Unspecified Department <No scans attached> [...] this encounter Active Problems Problem Noted Date Severe chronic obstructive pulmonary dis ease (HCC) 10/28/2016 Overview: severe by ATS criteria. significant response after bronchodilator ADVANCE DIRECTIVE INFORMATION 02/01/2008 Overview: No, Advance Directive brochure given to patient. Tobacco use disorder 04/22/2005 Other disorders of vitreous Loss of teeth due to trauma, extraction, or periodontal disease as of this encounter Resolved Problems Problem Noted Date Resolved Date COPD exacerbation ([facility]) 10/16/2016 05/03/20 17 Inflammation of sacroiliac joint ([facility]) 5 03/12/2017 Other abnormal glucose 04/23/2005 7 Overview: glucose [address] 03/19/2005 05/03/2017 Other specified disorders of rotator cuff syndrome of shoulder and allied disorders 05/23/2004 05/03/2017 Overview: right shoulder as of this encounter Immunizations Name Dates [...] Encounters Date Type Specialty Care Team Description 06/18/2017 Office Visit Internal Medicine Abram Owens MD [address] [place] [address] [place] [phone] 10/27/2017 Office Visit Internal Medicine Abram Owens MD [address] [place] [address] [place] MCCOLL[place] [address] [phone] Health Maintenance Due Date Last Done Comments COLONOSCOPY-EVERY 10 YRS AGE S 50-75 1992 LUNG CANCER SCREENING YEARLY -USE SMARTSET 62816 1997 TETANUS EVERY 10 YEARS-TDAP (BOOSTRIX OR [...] Phone Address MEDICARE MEDICARE A AND B [id number] [place] as of this encounter
--- OUTSIDE RECORDS SUMMARY | 2023-04-08 23:31 | External Medical Summary | Summary of Care ---
Author Name Unknown Organization [place] [address] Phone Care Team Providers Care Integrity Specialist Name Role Phone Abram Owens MD Primary Care Provider [phone] Encounter Details Date Type Department Care Team Description 06/25/2017 Membership AssistantInformation Systems Coordinator Medicine [address] [address] Ohs, Khadijah Sunshine RN [address] [place] [id number] Severe chronic obstructive pulmonary disease (HCC)*;SOB (shortness of breath);Pneumonia of left lower lobe due to infectious organism (HCC);Pneumonia due to Pseudomonas ([facility]) Allergies No Known Allergiesas of this encounter [...] COPD exacerbation ([facility]) 10/16/2016 05/03/20 17 Inflammation of sacroiliac joint ([facility]) 5 03/12/2017 Other abnormal glucose 04/23/2005 [...] Progress Notes * Khadijah Rehman, RN - 06/25/2017 1:56 PM EST CM f/u today. He is here to see Dr Owens for an ER visit at [facility] with weakness and SOB. He had his CT scan done on 06/23/18 at [facility] and went to the ER as well as he felt very weak, tired and SOB. Chest CT showed 1. Stable from Prior study 2. Emphysematous change with interstitial fibrosis also stable 3. Potential superimposed infiltrate/nodular process at left base. CXR showed slight increase in L basilar opacity. Recommend f/u to exclude underlying neoplasm. He is here with his today. He does have his 02 on. Walks unassisted. He was advised to turn his 02 up to 4 LPM with ambulation but she says he never does this. Explained that we use more 02 withactivity so he should do this when ambulating etc. He is eating ok. The Levaquin was finished on the . No swelling in legs. Still occasional cough and produces clear to white mucus. CM will f/u again next week. Khadijah Rehman, RN in this encounter Plan of Treatment Upcoming Encounters Date Type Specialty Care Team Description 10/27/2017 Office Visit Internal Medicine Abram Owens MD [address] [place] [address] [place] [address] [phone] Health Maintenance Due Date Last Done Comments COLONOSCOPY-EVERY 10 YRS AGE S 50-75 1992 LUNG CANCER SCREENING YEARLY -USE SMARTSET 92383 1997 TETANUS EVERY 10 YEARS-TDAP (BOOSTRIX OR [...] (shortness of breath) Shortness of breath Pneumonia of left lower lobe due to infectious organism (HCC) Pneumonia due to Pseudomonas (HCC) Pneumonia due to Pseudomonas in this encounter Insurance Payer Benefit Plan / Group Subscriber ID Type Phone Address MEDICARE MEDICARE A AND B [id number] Medicare [place] as of this encounter
--- OUTSIDE RECORDS SUMMARY | 2023-04-08 23:31 | External Medical Summary | Summary of Care ---
Author Name Unknown Organization [place] [address] Phone Care Team Providers Care Development Scientist Name Role Phone Abram Owens MD Primary Care Provider [phone] Reason for Visit * Reason Comments MEDICATION QUESTION Encounter Details Date Type Department Care Team Description 07/01/2017 Pharmacy Pharmacy, [place] [address] [place] [address] Coordinator, Pharmacy Reimbursement [address] [place] [address] Severe chronic obstructive pulmonary disease [...] Notes * Chele Gallardo OSA - 07/01/2017 4:18 PM EST Formatting of this note may be different from the original. Received call from patient [phone] (home) Patient Phone Numbers Coverage: Medicare A and B (No D) Medication:ALL Patient's Daughter in Law Tiara called [facility] requesting help with medical expenses as well as medication expenses. [facility] provided number for [employer]. Tiara did not have any income information, mailed [employer] information and application. Also mailed PAP applications for [employer], [employer], and [employer]. Follow up Tiara 1 week. 07/12/2017 JAH [employer] Bench Lathe Operator 07/01/20174:18 PM in this encounter Plan of Treatment Upcoming Encounters Date Type Specialty Care Team Description 07/12/2017 Pharmacy Kiln Fireman, Pharmacy Reimbursement [address] [facility] [place] [address] [phone] 10/27/2017 Office Visit Internal Medicine Abram Owens MD [address] [place] [address] [place] M[place] [phone] Health Maintenance Due Date Last Done Comments [...] 04/27/2017 LUNG CANCER SCREENING YEARLY -USE SMARTSET [id number] 06/23/2018 06/23/2017 DIABETES SCREEN EVERY 3 YRS- [...] Phone Address MEDICARE MEDICARE A AND B [id number] [place] as of this encounter
--- OUTSIDE RECORDS SUMMARY | 2023-04-08 23:31 | External Medical Summary | Summary of Care ---
Author Name Unknown Organization [place] [address] Phone Care Team Providers Care Charge Manager Name Role Phone Abram Owens MD Primary Care Provider [phone] Encounter Details Date Type Department Care Team Description 06/23/2017 Scan Encounter Unspecified Department <No scans attached> [...] Noted Date Resolved Date COPD exacerbation ([facility]) 10/16/2016 [...] Office Visit Internal Medicine Abram Owens MD [address] [place] [address] [place] [phone] Health Maintenance Due Date Last Done Comments COLONOSCOPY-EVERY 10 YRS AGE S 50-75 1992 LUNG CANCER SCREENING YEARLY -USE SMARTSET 39423 1997 TETANUS EVERY 10 YEARS-TDAP (BOOSTRIX OR [...] Phone Address MEDICARE MEDICARE A AND B [id number] [place] as of this encounter
--- OUTSIDE RECORDS SUMMARY | 2023-04-08 23:31 | External Medical Summary | Summary of Care ---
Author Name Unknown Organization [place] [address] Phone Care Team Providers Care Risk Assessment Consultant Name Role Phone Abram Owens MD Primary Care Provider [phone] Reason for Referral * Precert (Routine) Status Reason Specialty Diagnoses / Procedures Referred By Contact Referred To Contact Pending Review Precert Radiology Diagnoses Severe chronic obstructive pulmonary disease (HCC) Pneumonia of left lower lobe due to infectious organism (HCC) Procedures CHEST CT WITH IV CONTRAST Abram Owens MD [address] [place] [address] [place] MCCOLLUM Reason for Visit * Reason Comments STATUS CHECK Encounter Details Date Type Department Care Team Description 06/18/2017 Office Visit Internal Medicine [address] [address] Abram Owens MD [address] [place] [address] [place]RAH[place] MCCOLLUM [phone] Pneumonia of left lower lobe due to infectious organism (HCC)*;Severe chronic obstructive pulmonary disease (HCC) Allergies No [...] Vital Sign Reading Time Taken Blood Pressure 102/62 06/18/2017 9:39 AM EST Pulse 96 06/18/2017 9:39 AM EST Temperature 37 C (98.6 F) 06/18/2017 9:3 9 AM EST Respiratory Rate 20 06/18/2017 9:39 AM EST Oxygen Saturation 94% 06/18/2017 9:3 9 AM EST Inhaled Oxygen Concentration - - Weight 59.4 kg (131 lb) 06/18/2017 9:39 AM EST Height - - Body Mass Index 20.18 06/18/2017 9:39 AM EST in this encounter Progress Notes * Abram Owens MD - 06/18/2017 9:44 AM EST Formatting of this note may be different from the original. Jer was in the ER again on 06/13 and again there is a LLL infiltrate. There has been one there since a CXR 03/07/17. He is on Levaquin right now and continues to be short of breath, unable to lie down and he has had some GI distress as well. Past Medical History: Diagnosis Date Acute exacerbation of COPD with asthma (HCC) 04/23/2017 [facility] Inflammation of sacroiliac joint (HCC) 04/24/05 Loss [...] disorder Past Surgical History: Procedure Laterality Date CHEST CTA W/ IV CONTRAST (NON-CORONARY) 04/23/2017 no PE small focal consolidation in [...] Current Outpatient Prescriptions Medication Sig Dispense Refill levofloxacin (LEVAQUIN) 500 MG Tablet Take 500 mg by mouth daily. Indications: x 10 days for unresolved pneumonia roflumilast (DALIRESP) 500 MCG Tablet Take 1 Tab by mouth daily. (Patient taking differently: Take 500 mcg by mouth daily. Indications: Not taking-was over $300-CATHY to assist with PACE form?) 30 Tab 5 folic acid 1 MG Tablet Take 1 mg by mouth daily. THIAMINE (VITAMIN B-1) 100 MG Tablet Take 100 mg by mouth daily. albuterol (PROAIR HFA) 108 (90 BASE) MCG/ACT inhaler Inhale 2 Puffs by mouth every 4 hours as needed for Shortness of Breath or Wheezing. 1 Inhaler 5 fluticasone-salmeterol (ADVAIR DISKUS) 250-50 MCG/DOSE inhaler Inhale 1 Puff by mouth 2 times aday. 1 Disk Dosing Unit 5 oxygen GAS Use 2 L/min(Oxygen) as directed continuous. Indications: Inc to 4LPM with ambulation/exertion MEDICAL INSTRUCTIONS Nebulizer and tubing 1 Each 1 albuterol sulfate (PROVENTIL) (2.5 MG/3ML) 0.083% nebulizer solution Inhale 1 Vial via nebulizer every 4 hours as needed for Wheezing. 120 Vial 11 O: Blood pressure 102/62, pulse 96, temperature 37 C (98.6 F), resp. rate 20, weight 59.4 kg (131 lb), SpO2 94 %. General appearance: well developed, well nourished and in no acute distress. He has O2 on. Neck is supple without adenopathy or thyromegaly. Chest is symmetrical and moves normally. The lungs are clear without wheezes, rales, rhonchi or rubs, and the heart is regular without murmurs or gallops, or ectopy. PMI not displaced. A: J18.1 Pneumonia of left lower lobe due to infectious organism (hcc) (primary encounter diagnosis) Plan: Basic metab panel, bmp Basic metab panel, bmp Chest ct with iv contrast J44.9 Severe chronic obstructive pulmonary disease (hcc) Plan: Basic metab panel, bmp Basic metab panel, bmp Chest ct with iv contrast Follow up: Return if symptoms worsen or fail to improve. in this encounter Nursing Notes * Shantelle Jacobo RN - 06/18/2017 9:40 AM EST S/p ER f/u for exacerbation of COPD Wears 02 continuously.. Difficulty breathing. Now with nausea and diarrhea. Getting dizzy. No falls. in this encounter Plan of Treatment Upcoming Encounters Date Type Specialty Care Team Description 06/18/2017 Imaging Radiology [facility] Radiology [address] [place] [address] [phone] Aspiration pneumonia, unspecified aspiration pneumonia type, unspecified laterality, unspecified part of lung (HCC)* 10/27/2017 Office Visit Internal Medicine PilAbram norton MD [address] [place] [address] [place] [address] [phone] Pending Results Name Priority Associated Diagnoses Date/Ti tx BASIC METAB PANEL, BMP Routine Severe chronic obstructive pulmonary disease (HCC) Pneumonia of left lower lobe due to infectious organism (HCC) 06/18/2017 9:59 AM EST Scheduled Tests Name Priority Associated Diagnoses Order S chedule CHEST CT WITH IV CONTRAST Routine Severe chronic obstructive pulmonary disease (HCC) Pneumonia of left lower lobe due to infectious organism (HCC) Ordered: 06/18/2017 BASIC METAB PANEL, BMP Routine Severe chronic obstructive pulmonary disease (HCC) Pneumonia of left lower lobe due to infectious organism (HCC) Expected: 06/18/2017 (Approximate), Expires: 06/18/2018 Health Maintenance Due Date Last Done Comments COLONOSCOPY-EVERY 10 YRS AGE S 50-75 1992 LUNG CANCER SCREENING YEARLY -USE SMARTSET 16404 1997 TETANUS EVERY 10 YEARS-TDAP (BOOSTRIX OR [...] fileas of this encounter Visit Diagnoses Diagnosis Pneumonia of left lower lobe due to infectious organism (HCC) - Primary Severe chronic obstructive p ulmonary disease (HCC) Chronic airway obstruction, not elsewhere classified in this encounter Insurance Payer Benefit Plan / Group Subscriber ID Type Phone Address MEDICARE MEDICARE A AND B [id number] [place] as of this encounter
--- OUTSIDE RECORDS SUMMARY | 2023-04-08 23:31 | External Medical Summary | Summary of Care ---
Author Name Unknown Organization [place] [address] Phone Care Team Providers Care Roll Up Guider Operator Name Role Phone Abram Owens MD Primary Care Provider [phone] Reason for Referral * Precert (Routine) Status Reason Specialty Diagnoses / Procedures Referred By Contact Referred To Contact Pending Review Precert Radiology Diagnoses Severe chronic obstructive pulmonary disease (HCC) Pneumonia of left lower lobe due to infectious organism (HCC) Procedures CHEST CT WITH IV CONTRAST Abram Owens MD [address] [place] [address] ABRAHAM MCCOLLUM Reason for Visit * Reason Comments STATUS CHECK Encounter Details Date Type Department Care Team Description 06/18/2017 Office Visit Internal Medicine [address] [address] Abram Owens MD [address] [place] [address] ABRAHAM MCCOLLUM [phone] Pneumonia of left lower lobe due to [...] of COPD with asthma (HCC) 04/23/2017 [facility] Inflammation of sacroiliac joint (HCC) 04/24/05 Loss [...] Visit Internal Medicine Abram Owens MD [address] [place] [address] [place] [address] [phone] Scheduled Tests Name Priority Associated Diagnoses Order S chedule CHEST CT WITH IV CONTRAST Routine Severe chronic obstructive pulmonary disease (HCC) Pneumonia of left lower lobe due to infectious organism (HCC) Ordered: 06/18/2017 Health Maintenance Due Date Last Done Comments COLONOSCOPY-EVERY 10 YRS AGE S 50-75 1992 LUNG CANCER SCREENING YEARLY -USE SMARTSET 66694 1997 TETANUS EVERY 10 YEARS-TDAP (BOOSTRIX OR [...] on fileas of this encounter Results * BASIC METAB PANEL, [facility] (06/18/2017 9:59 AM) Component Value Ref Range BUN 11 6 - 20 mg/dL CREATININE 1.1 Comment: GFR should be used to assess renal function.Plasma/Serum creatinine may not be able to properly reflect renal function in some cases. 0.6 - 1.2 mg/dL SODIUM 138 135 - 146 mmol/L POTASSIUM 3.8 3.5 - 5.1 mmol/L CHLORIDE 96(L) 98 - 107 mmol/L CO2 26 22 - 32 mmol/L ANION GAP 16(H) 7 - 15 mmol/L GLUCOSE 115 70 - 120 mg/dL CALCIUM 9.1 8.4 - 10.2 mg/dL E GLOM FILT RATE >60.0Comment:If namrata ent is , multiply estimated GFR by 1.159. >60 Specimen Performing Laborator y [facility] [address] [place] [address] in this encounter Visit Diagnoses Diagnosis Pneumonia of left lower lobe due to infectious organism (HCC) - Primary Severe chronic obstructive p ulmonary disease (HCC) Chronic airway obstruction, not elsewhere classified in this encounter Insurance Payer Benefit Plan / Group Subscriber ID Type Phone Address MEDICARE MEDICARE A AND B [id number] Medicare [place] as of this encounter
--- OUTSIDE RECORDS SUMMARY | 2023-04-08 23:31 | External Medical Summary | Summary of Care ---
Author Name Unknown Organization [place] [address] Phone Care Team Providers Care Vial Gauger Name Role Phone Abram Owens MD Primary Care Provider [phone] Reason for Visit * Reason Comments APPOINTMENT CT thorax/[facility] Encounter Details Date Type Department Care Team Description 06/18/2017 Telephone Internal Medicine [address] [address] Abram Owens MD [address] [place] [address] [place] [address] [phone] APPOINTMENT (CT thorax/[facility]) Allergies No Known Allergiesas of this encounter Medications Prescription Sig. Disp. Refills Start Date End Date Status MEDICAL INSTRUCTIONSIndicat ions:Severe chronic obstructive pulmonary disease (HCC),COPD exacerbation ([facility]) Nebulizer and tubing 1 Each 1 [...] sacroiliac joint ([facility]) 5 03/12/2017 Other abnormal glucose 04/23/2005 [...] Telephone Encounter - Silva Franklin, JAH - 06/18/2017 10:22 AM EST 06/23/17 1:[address] thorax w/ contrast at [facility] (Pt request). He is aware of date and time and also told to eat a clear liquid diet. Medicare - no pre cert req. Order faxed to [phone] in this encounter Plan of Treatment Upcoming Encounters Date Type Specialty Care Team Description 06/18/2017 Imaging Radiology [facility] Radiology [address] [place] [address] [phone] Aspiration pneumonia, unspecified aspiration pneumonia type, unspecified laterality, unspecified part of lung (HCC)* 10/27/2017 Office Visit Internal Medicine PilAbram norton MD [address] [place] [address] [place] [address] [phone] Health Maintenance Due Date Last Done Comments COLONOSCOPY-EVERY 10 YRS AGE S 50-75 1992 LUNG CANCER SCREENING YEARLY -USE SMARTSET 50034 1997 TETANUS EVERY 10 YEARS-TDAP (BOOSTRIX OR [...] Phone Address MEDICARE MEDICARE A AND B [id number] [place] as of this encounter
--- OUTSIDE RECORDS SUMMARY | 2023-04-08 23:31 | External Medical Summary | Summary of Care ---
Author Name Unknown Organization [place] [address] Phone Care Team Providers Care Gum Rolling Machine Operator Name Role Phone Abram Owens MD Primary Care Provider [phone] Encounter Details Date Type Department Care Team Description 06/16/2017 Hand Ii Thermal CutterManufacturing Director Medicine [address] [address] [place], Khadijah Sunshine RN [address] [place] [address] [place] [address] [phone] Pneumonia due to Pseudomonas (HCC)*;SOB (shortness of breath);COPD exacerbation ([facility]) Allergies No Known Allergiesas of this encounter [...] Date Severe chronic obstructive pulmonary dis ease ([facility] [...] Progress Notes * Khadijah Rehman RN - 06/16/2017 1:19 PM YESSICA Sanchez called Vanda/CATHY today asking when his appointments are? She came to me and informed me that hedoesn't know when to come in. I called Daniel and he apparently lost his notes of when his appointment is. He wrote down this [id number] Owens here at [facility] at 9:45am while I spoke with him. He also wrote down my phone number again. Advised to hang it on the refrigerator so he knows when it is. He tells me he is still feeling quite weak. He does get SOB with any exertion. He is using his 02 and may increase to 4 LPM as needed with activity. He is eating ok and sleeping ok. BM are regular. He is using his nebulizer and inhaler as directed. Continues to cough and produce white to slightlyyellow mucus at times. Encouraged fluids. He tells me his has the flu and is having vomiting and diarrhea. He wrote down my number again. Encouraged to hang my number on refrigerator so he knows where it isin case he needs us for something or has questions. His barium swallow showed silent aspiration. He denies any choking episodes etc. CM will follow up again later this week. Khadijah Rehman RN in this encounter Plan of Treatment Upcoming Encounters Date Type Specialty Care Team Description 06/18/2017 Office Visit Internal Medicine Abram Owens MD [address] [place] [address] ABRAHAM MCCOLLUM [phone] 10/27/2017 Office Visit Internal Medicine Abram Owens MD [address] [place] [address] [place]RAHAM MCCOLLUM [phone] Health Maintenance Due Date Last Done Comments COLONOSCOPY-EVERY 10 YRS AGE S 50-75 1992 LUNG CANCER SCREENING YEARLY -USE SMARTSET 61960 1997 TETANUS EVERY 10 YEARS-TDAP (BOOSTRIX OR [...] of this encounter Visit Diagnoses Diagnosis Pneumonia due to Pseudomonas (HCC) - Primary Pneumonia due to Pseudomonas SOB (shortness of breath) Shortness of breath COPD exacerbation (HCC) Obstructive chronic bronchitis with exacerbation in this encounter Insurance Payer Benefit Plan / Group Subscriber ID Type Phone Address MEDICARE MEDICARE A AND B [id number] [place] as of this encounter
--- OUTSIDE RECORDS SUMMARY | 2023-04-08 23:31 | External Medical Summary | Summary of Care ---
Author Name Unknown Organization [facility] [address] Phone Care Team Providers Care Leadership Development Instructor Name Role Phone Abram Owens MD Primary Care Provider [phone] Reason for Visit * Reason Comments STATUS CHECK Encounter Details Date Type Department Care Team Description 06/25/2017 Office Visit Internal Medicine [address] [address] Abram Owens MD [address] [place] [address] [place] [phone] Severe chronic obstructive pulmonary disease (HCC)* Allergies [...] Noted Date Resolved Date COPD exacerbation ([facility]) 10/16/2016 05/03/20 17 Inflammation of sacroiliac joint ([facility]) 5 03/12/2017 Other abnormal glucose 04/23/2005 [...] Vital Sign Reading Time Taken Blood Pressure 110/60 06/25/2017 1:31 PM EST Pulse 120 06/25/2017 1:31 PM EST Temperature 36.8 C (98.3 F) 06/25/2017 1 :31 PM EST Respiratory Rate 24 06/25/2017 1:31 PM EST Oxygen Saturation 97% 06/25/2017 1:3 1 PM EST Inhaled Oxygen Concentration - - Weight 59 kg (130 lb) 06/25/2017 1:31 PM EST Height - - Body Mass Index 20.03 06/25/2017 1:31 PM EST in this encounter Progress Notes * Abram Owens MD - 06/25/2017 1:39 PM EST Formatting of this note may be different from the original. On 2 L O2. Jer is back. He was in ER on 06/23 for flareup of dyspnea, rash on back, some generalized weakness that persists. He got a CT it looks like on 06/20 and this LLL thing was mostly considered post inflammatory?? 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 rate 24, weight 59 kg (130 lb), SpO2 97 %. This is on 2 L. He gets really short of breath doing anything. Neck is supple without adenopathy orthyromegaly. Chest is symmetrical and moves normally. The lungs are clear without wheezes, rales, rhonchi or rubs, and the heart is regular without murmurs or gallops, or ectopy. PMI not displaced. A: J44.9 Severe chronic obstructive pulmonary disease (hcc) (primary encounter diagnosis) Plan: Prednisone 10 mg po tabs Sig:One daily with food Continue everything else. in this encounter Nursing Notes * Shantelle Jacobo RN - 06/25/2017 1:31 PM EST Was to [facility] 06/23 for weakness and shortness of breath [facility] Has a rash on the back. in this encounter Plan of Treatment Upcoming Encounters Date Type Specialty Care Team Description 10/27/2017 Office Visit Internal Medicine Abram Owens MD [address] [place] [address] [place] [address] [phone] Health Maintenance Due Date Last Done Comments COLONOSCOPY-EVERY 10 YRS AGE S 50-75 1992 LUNG CANCER SCREENING YEARLY -USE SMARTSET 72276 1997 TETANUS EVERY 10 YEARS-TDAP (BOOSTRIX OR [...] Phone Address MEDICARE MEDICARE A AND B [id number] Medicare [place] as of this encounter
--- OUTSIDE RECORDS SUMMARY | 2023-04-08 23:31 | External Medical Summary | Summary of Care ---
Author Name Unknown Organization [facility] [place] [address] Phone Care Team Providers Care Web Services Manager Name Role Phone Abram Owens MD Primary Care Provider [phone] Encounter Details Date Type Department Care Team Description 07/02/2017 Scan Encounter Unspecified Department <No scans attached> [...] [facility]) 5 03/12/2017 Other abnormal glucose 04/23/2005201 7 [...] Type Specialty Care Team Description 07/12/2017 Pharmacy Lead Software Qa Engineer, Pharmacy Reimbursement [address] [place] [address] [phone] 10/27/2017 Office Visit Internal Medicine Abram Owens MD [address] [place] [address] [place] MCCO[place] [address] [phone] Health Maintenance Due Date Last Done Comments [...] 04/27/2017 LUNG CANCER SCREENING YEARLY -USE SMARTSET 42015 06/23/2018 06/23/2017 DIABETES SCREEN EVERY 3 YRS- AGE 45 AND ABOVE 06/23/2020 06/23/2017, 06/18/2017, 05/17/2017, Additional history exists Influenza Vaccine (FLU shot) Completed 11/2016, 03/12/2009, 04/24/2006, Additional history exists as of this encounter Implants Not on fileas of this encounter Insurance Payer Benefit Plan / Group Subscriber ID Type Phone Address MEDICARE MEDICARE A AND B [id number] Medicare [place] as of this encounter
--- OUTSIDE RECORDS SUMMARY | 2023-04-08 23:31 | External Medical Summary | Summary of Care ---
Author Name Unknown Organization [place] [address] Phone Care Team Providers Care Automobile Drivers Name Role Phone Abram Owens MD Primary Care Provider [phone] Reason for Visit * Reason Comments EMERGENCY DEPARTMENT FOLLOW-UP Encounter Details Date Type Department Care Team Description 06/24/2017 Telephone Internal Medicine [address] [address] Abram Owens MD [address] [place] [address] [place] [address] [phone] EMERGENCY DEPARTMENT FOLLOW-UP Allergies No Known Allergiesas of this encounter [...] [facility] 5 03/12/2017 Other abnormal glucose 04/23/2005201 7 [...] encounter Miscellaneous Notes * Telephone Encounter - Myrtle Early, GLASS ARTIST - 06/24/2017 1:20 PM EST Pt went to [facility] yesterday for SOB He Had a breathing tx in the ED he is doing them twice daily via neb. His SPO2 96 On 2L. He also had an EKG he did not know the results. He is feeling better today. Not as fatigued today. I had ED recs faxed to the office. Sched hardeep with Dr Owens * Telephone Encounter - Mayela Elicia Sunshine, JAH - 06/24/2017 1:17 PM EST Reason for patient's call: E/R Follow up Caller was transferred to Myrtle at the dedicated phone nurse line. in this encounter Plan of Treatment Upcoming Encounters Date Type Specialty Care Team Description 10/27/2017 Office Visit Internal Medicine Abram Owens MD [address] [place] [address] [place] [phone] Health Maintenance Due Date Last Done Comments [...] 04/27/2017 LUNG CANCER SCREENING YEARLY -USE SMARTSET 77091 06/23/2018 06/23/2017 DIABETES SCREEN EVERY 3 YRS- AGE 45 AND ABOVE 06/23/2020 06/23/2017, 06/18/2017, 05/17/2017, Additional history exists Influenza Vaccine (FLU shot) Completed 11/2016, 03/12/2009, 04/24/2006, Additional history exists as of this encounter Implants Not on fileas of this encounter Insurance Payer Benefit Plan / Group Subscriber ID Type Phone Address MEDICARE MEDICARE A AND B [id number] [place] as of this encounter
--- OUTSIDE RECORDS SUMMARY | 2023-04-08 23:32 | External Medical Summary | Summary of Care ---
Author Name Unknown Organization [place] [address] Phone Care Team Providers Care Senior Shipping Clerk Name Role Phone Abram Owens MD Primary Care Provider Encounter Details Date Type Department Care Team Description 05/28/2017 Oxyacetylene CutterHazmat Cdl A Driver Medicine [address] [address] Ohs, Khadijah Sunshine RN [address] [place] [address] [phone] Pneumonia due to Pseudomonas (HCC)*;Severe chronic obstructive pulmonary disease (HCC);SOB (shortness of breath) Allergies No Known [...] ion 04/28/2017 Active roflumilast (DALIRESP) 500 MCG TabletIndications:S evere chronic obstructive pulmonary disease (HCC) Take 1 Tab by mouth daily. 30 Tab 5 05/25/2017 Active levofloxacin (LEVAQUIN) 500 MG TabletIndications:x 7 days post hospital Take 500 mg by mouth daily. Indications: x 7 days post hospital 05/26/2017 06/01/2017 Active PredniSONE (DELTASONE) 20 MG TabletIndications:2 tabs (40mg) daily for 8 days Take 20 mg by mouth daily. Indications: 2 tabs (40mg) daily for 8 days 05/26/2017 06/03/2017 Active as of this encounter Active Problems Problem Noted Date Severe chronic obstructive pulmonary dis ease ([facility]) 10/28/2016 Overview: severe by ATS criteria. significant response after bronchodilator ADVANCE DIRECTIVE INFORMATION 02/01/2008 Overview: No, Advance Directive brochure given to patient. Tobacco use disorder 04/22/2005 Other disorders of vitreous Loss of teeth due to trauma, extraction, or periodontal disease as of this encounter Resolved Problems Problem Noted Date Resolved Date COPD exacerbation ([facility]) 10/16/2016 05/03/20 17 Inflammation of sacroiliac joint ([facility]) 5 03/12/2017 Other abnormal glucose 04/23/2005 7 [...] this encounter Progress Notes * Khadijah Rehman, FRANCES - 05/28/2017 10:47 AM EST ! Week 2nd anthony for hospital stay for pneumonia. Daniel says his breathing is improved but he remains very weak. He is still coughing but not as much and is producing small amounts of slight yellow to white/clear. He continues the Levaquin and Prednisone as directed. 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 He will discuss withDr Gill's office at appointment Wed06-02-17. We will have Vanda robles [facility] contact him and see if he can apply for PACE. He is agreeable. He is eating well. Using his 02 and inhalers and nebulizer as directed. Aware he can increase the 02 to 4 LPM with activity. Advised to use a scarf or something to cover his mouth when out in the cold weather. His to bring him in today to see Dr Harmon for his hospital f/u appointment. CM will f/u early next week. Khadijah Rehman, FRANCES in this encounter Plan of Treatment Upcoming Encounters Date Type Specialty Care Team Description 05/28/2017 Office Visit Internal Medicine Jackelyn Harmon DO [address] [place] [address] [place] Mccoll[place] [address] [phone] 10/27/2017 Office Visit Internal Medicine Abram Owens MD [address] [place] [address] [place] [phone] Health Maintenance Due Date Last Done Comments COLONOSCOPY-EVERY 10 YRS AGE S 50-75 1992 LUNG CANCER SCREENING YEARLY -USE SMARTSET 32464 1997 TETANUS EVERY 10 YEARS-TDAP (BOOSTRIX OR ADACEL) SUGGESTED IF NOT RECEIVED IN THE PAST. 11/27/2007 LIPID SCREEN EVERY 5 YRS-MEN AGE 35-75 02/16/2013 02/17/2008 *ADVANCE DIRECTIVE NOT ON FILE 10/06/2016 *DEPRESSION SCREENING, RAMESH Chairez FOR PTS 18 AND OVER 10/06/2016 PNEUMOCOCCAL ADULT 65 YRS AN D [...] (HCC) - Primary Pneumonia due to Pseudomonas Severe chronic obstructive p ulmonary disease (HCC) Chronic airway obstruction, not elsewhere classified SOB (shortness of breath) Shortness of breath in this encounter Insurance Payer Benefit Plan / Group Subscriber ID Type Phone Address MEDICARE MEDICARE A AND B [id number] [place] as of this encounter
--- OUTSIDE RECORDS SUMMARY | 2023-04-08 23:32 | External Medical Summary | Summary of Care ---
Author Name Unknown Organization [place] [address] Phone Care Team Providers Care Station Usher Name Role Phone Abram Owens MD Primary Care Provider Reason for Visit * Reason Comments MED REQUEST Encounter Details Date Type Department Care Team Description 05/25/2017 Telephone Internal Medicine [address] [address] Ohs, Khadijah Sunshine RN [address] [place] [address] [place] [address] MED REQUEST Allergies No Known Allergiesas of this encounter Medications Prescription Sig. Disp. Refills Start Date End Date Status MEDICAL INSTRUCTIONSIndica tions:Severe chronic obstructive pulmonary disease (HCC),COPD exacerbation ([facility]) Nebulizer and tubing 1 Each [...] or Wheezing. 1 Inhaler 5 04/30/2017 Active fluticasone-salmet umberto (ADVAIR DISKUS) 250-50 MCG/DOSE [...] mouth daily. 30 Tab 5 05/25/2017 Active roflumilast (DALIRESP) 500 MCG Tablet Take 500 mcg by mouth daily. 05/19/2017 7 Discontinued as of this encounter Active Problems [...] Telephone Encounter - Khadijah Rehman RN - 05/25/2017 3:23 PM EST Daniel is aware. Thanks, Khadijah Rehman RN * Telephone Encounter - Abram Owens MD - 05/25/2017 3:17 PM EST ok * Telephone Encounter - Khadijah Rehman RN - 05/25/2017 2:40 PM EST Daniel De Souza was ordered Daliresp 500 mg daily at discharge from [facility]. He was given a paper script but unable to find it. Would it be willing to send to [facility]? Thanks, Khadijah Rehman RN in this encounter Plan of Treatment Upcoming Encounters Date Type Specialty Care Team Description 05/28/2017 Office Visit Internal Medicine Jackelyn Harmon DO [address] [place] [address] [place] [address] [phone] 10/27/2017 Office Visit Internal Medicine Abram Owens MD [address] [place] [address] [place] MCCOLL[place] [address] [phone] Health Maintenance Due Date Last Done Comments COLONOSCOPY-EVERY 10 YRS AGE S 50-75 1992 LUNG CANCER SCREENING YEARLY -USE SMARTSET 85753 1997 TETANUS EVERY 10 YEARS-TDAP (BOOSTRIX OR [...] Phone Address MEDICARE MEDICARE A AND B [id number] Medicare [place] as of this encounter
--- OUTSIDE RECORDS SUMMARY | 2023-04-08 23:32 | External Medical Summary | Summary of Care ---
Author Name Unknown Organization [place] [address] Phone Care Team Providers Care Director Of Corporate Communications Name Role Phone Abram Owens MD Primary Care Provider [phone] Encounter Details Date Type Department Care Team Description 05/25/2017 DulserGore Seamer Medicine [address] [address] Ohs, Khadijah Sunshine RN [address] [place] [address] [phone] Pneumonia due to Pseudomonas (HCC)*;Severe chronic obstructive pulmonary disease (HCC);COPD exacerbation (HCC) [...] 5 05/25/2017 Active levofloxacin (LEVAQUIN) 500 MG TabletIndications: x 7 days post hospital Take 500 mg by mouth daily. Indications: x 7 days post hospital 05/26/2017 7 Active PredniSONE (DELTASONE) 20 MG TabletIndications: 2 tabs (40mg) daily for 8 days Take 20 mg by mouth daily. Indications: 2 tabs (40mg) daily for 8 days 05/26/2017 7 Active roflumilast (DALIRESP) 500 MCG Tablet Take [...] Notes * Ohs, Khadijah Sunshine RN - 05/25/2017 3:36 PM EST Case Management Assessment Is this call for a hospital, group home or rehab facility discharge to home? Yes Daniel was [facility] on 05-[facility]17 after awakening and was unable to breath. He took several puffs of his Proair inhaler without any benefit. He had been at the [facility] ER on 05-17-17 with c/o increased SOB, cough, wheezing and yellow to green sputum. He was discharged home and was to see Dr Gill as an outpatient. The ER Dr spoke with pulmonary and he was placed on Daliresp daily. He was treated with IV antibiotics and steroids. His sputum culture revealed pseudonmonas infection. Pulmonary followed him as an inpatient as well as ID Dr Cornell at one point. He did have a barium swallow which revealed some "si lent aspiration and was seen by speech therapy while an inpatient. He slowly improved and was discharged home today 05-25-17. S: Reports: Daniel was scheduled to see Dr Ramirez tomorrow 05-26-17 although has no transportation. Wasable to get him in with Dr Harmon on Wednesday05-28-17 at 3:25 pm. Also unable to see pulmonary tomorrow so he is scheduled with Lashon Farley PAC Wed06-02-[address] Gill's office. We reviewed his medicines and found that he doesn't have the Daliresp. Looks like he was given the script but can't find it. Dr Owens was kind enough to send to [facility]. Daniel will try and obtain and begin daily tomorrow. He had his dose today at [facility]. He tells me his breathing is much improved from prior to hospital stay. He is wearing his 02 at 2 LPM continuously and is aware to turn to 4 LPM with activity or ambulation. He is to take the Levaquin daily x 7 days and the Prednisone x 8 days. He is still coughing some but much less and producing yellow mucus. O: Phone visit for CM SULEMA assessment and hospital f/u. Medications: takes all medications as [...] transportation and Older than 70 years P: Dulser Interventions: Reinforce Self Management Action Plan established at previous visit Reinforced "call back instructions" if weight fails to return to baseline, urine outputs decrease, symptoms increase Contacted managing provider Reinforced safety education / fall prevention Reinforced medication regimen - timing / dosing / purpose Discussed alternate medication therapy with provider / pharmacist COPD: Pt instructed to: -Call with increased [...] update plan of care, instructed to call Dulser or Primary Care Provider with change in symptoms or as needed before next follow-up, verbalizes understanding and agrees with plan. Khadijah Rehman, RN Outpatient Dulser in this encounter Plan of Treatment Upcoming Encounters Date Type Specialty Care Team Description 05/28/2017 Office Visit Internal Medicine Jackelyn Harmon DO [address] [place] [address] [place] Mccoll[place] [address] [phone] 10/27/2017 Office Visit Internal Medicine Abram Owens MD [address] [place] [address] [place] MCCOLLUM [address] [phone] Health Maintenance Due Date Last Done Comments COLONOSCOPY-EVERY 10 YRS AGE S 50-75 1992 LUNG CANCER SCREENING YEARLY -USE SMARTSET 73446 1997 TETANUS EVERY 10 YEARS-TDAP (BOOSTRIX OR [...] Phone Address MEDICARE MEDICARE A AND B [id number] [place] as of this encounter
--- OUTSIDE RECORDS SUMMARY | 2023-04-08 23:32 | External Medical Summary | Summary of Care ---
Author Name Unknown Organization [place] [address] Phone Care Team Providers Care Office Assistant Receptionist Name Role Phone Abram Owens MD Primary Care Provider [phone] Encounter Details Date Type Department Care Team Description 05/24/2017 Scan Encounter Unspecified Department <No scans attached> [...] to 4LPM with ambulation/exert ion 04/28/2017 Active as of this encounter Active Problems [...] of sacroiliac joint ([facility]) 5 03/12/2017 Other abnormal glucose 04/23/2005 [...] Office Visit Internal Medicine Jackelyn Harmon DO [address] [place] [address] [place] [address] [phone] 10/27/2017 Office Visit Internal Medicine Abram Owens MD [address] [place] [address] [place] MCCOLLUM [address] [phone] Health Maintenance Due Date Last Done Comments COLONOSCOPY-EVERY 10 YRS AGE S 50-75 1992 LUNG CANCER SCREENING YEARLY -USE SMARTSET 39021 1997 TETANUS EVERY 10 YEARS-TDAP (BOOSTRIX OR [...] Phone Address MEDICARE MEDICARE A AND B [id number] [place] of this encounter
--- OUTSIDE RECORDS SUMMARY | 2023-04-08 23:32 | External Medical Summary | Summary of Care ---
Author Name Unknown Organization [place] [address] Phone Care Team Providers Care Surveyor Hydrographic Name Role Phone Abram Owens MD Primary Care Provider [phone] Encounter Details Date Type Department Care Team Description 06/14/2017 Hair DesignerSenior Grant Writer Medicine [address] [address] Ohs, Khadijah Sunshine RN [address] [place] [address] [place] [address] [phone] Pneumonia due to Pseudomonas (HCC)*;COPD exacerbation ([facility]);Severe chronic obstructive pulmonary disease (HCC) Allergies No [...] Date Severe chronic obstructive pulmonary dis ease ([facility] [...] Progress Notes * Khadijah Rehman RN - 06/14/2017 4:07 PM EST Week 3 SULEMA for pseudomonas pneumonia as well as ER 06-13-17 at [facility] for unresolved pneumonia. Daniel presented to [facility] ER yesterday due to increased SOB and some chest tightness. His CXR revealed increase in L basilar opacity. He was given IV Levaquin in the ER and nebulizer treatments. He was then discharged home. He is to have a repeat CXR in 1-[address] Owens placed an order. Daniel is scheduled to see Dr Owens 06-18-17 for ER f/u. He did see pulmonary on 06-02-17 but no changes were made at that time. He thinks he sees them again next month. Advised to try and not be out in the cold. If he does he needs to cover his mouth with a scarf or something. He is using his 02 continuously and his nebulizer as well as his Advair inhaler. He tells me he is eating ok and bowels are moving without difficulty. He will be on the Levaquin daily for 10 days. Advised he must finish the full 10 days. He wrote down the appointment with Dr Owens for Wednesday at 9:45 am. CM will try and meet with him while he is here of Wednesday. Then will f/u again early next week. Khadijah Rehman, RN in this encounter Plan of Treatment Upcoming Encounters Date Type Specialty Care Team Description 06/18/2017 Office Visit Internal Medicine Abram Owens MD [address] [place] [address] [place] MCCOLL[place] [address] [phone] 10/27/2017 Office Visit Internal Medicine Abram Owens MD [address] [place] [address] [place] MCCOLLUM [address] [phone] Health Maintenance Due Date Last Done Comments COLONOSCOPY-EVERY 10 YRS AGE S 50-75 1992 LUNG CANCER SCREENING YEARLY -USE SMARTSET [address]1657 1997 TETANUS EVERY 10 YEARS-TDAP (BOOSTRIX OR [...] (HCC) - Primary Pneumonia due to Pseudomonas COPD exacerbation (HCC) Obstructive chronic bronchitis with exacerbation Severe chronic obstructive p ulmonary disease (HCC) Chronic airway obstruction, not elsewhere classified in this encounter Insurance Payer Benefit Plan / Group Subscriber ID Type Phone Address MEDICARE MEDICARE A AND B [id number] [place] as of this encounter
--- OUTSIDE RECORDS SUMMARY | 2023-04-08 23:32 | External Medical Summary | Summary of Care ---
Author Name Unknown Organization [place] [address] Phone Care Team Providers Care Certified Technician Specialist Name Role Phone Abram Owens MD Primary Care Provider [phone] Encounter Details Date Type Department Care Team [...] Noted Date Resolved Date COPD exacerbation ([facility]) 10/16/2016 05/03/20 17 Inflammation of sacroiliac joint ([facility]) 5 03/12/2017 Other abnormal glucose 04/23/2005 7 [...] Office Visit Internal Medicine Jackelyn Harmon DO [address] [place] [address] [place] M[place]oll[place] [address] [phone] 10/27/2017 Office Visit Internal Medicine Abram Owens MD [address] [place] [address] [place] MCCOLLUM [address] [phone] Health Maintenance Due Date Last Done Comments COLONOSCOPY-EVERY 10 YRS AGE S 50-75 1992 LUNG CANCER SCREENING YEARLY -USE SMARTSET 40204 1997 TETANUS EVERY 10 YEARS-TDAP (BOOSTRIX OR [...] Phone Address MEDICARE MEDICARE A AND B [id number] [place] of this encounter
--- OUTSIDE RECORDS SUMMARY | 2023-04-08 23:32 | External Medical Summary | Summary of Care ---
Author Name Unknown Organization [place] [address] Phone Care Team Providers Care Payroll Tax Specialist Name Role Phone Abram Owens MD Primary Care Provider [phone] Encounter Details Date Type Department Care Team Description 05/22/2017 Scan Encounter Unspecified Department <No scans attached> [...] Office Visit Internal Medicine Jackelyn Harmon DO [address] [place] [address] [place] Mccoll[place] [address] [phone] 10/27/2017 Office Visit Internal Medicine Abram Owens MD [address] [place] [address] [place] MCCOLLUM [address] [phone] Health Maintenance Due Date Last Done Comments COLONOSCOPY-EVERY 10 YRS AGE S 50-75 1992 LUNG CANCER SCREENING YEARLY -USE SMARTSET 89870 1997 TETANUS EVERY 10 YEARS-TDAP (BOOSTRIX OR [...] Phone Address MEDICARE MEDICARE A AND B [id number] [place] as of this encounter
--- OUTSIDE RECORDS SUMMARY | 2023-04-08 23:32 | External Medical Summary | Summary of Care ---
Author Name Unknown Organization [place] [address] Phone Care Team Providers Care Director Mobile Media Solutions Name Role Phone Abram Owens MD Primary Care Provider [phone] Encounter Details Date Type Department Care Team Description 05/25/2017 Scan Encounter Unspecified Department <No scans attached> [...] Visit Internal Medicine Jackelyn Harmon DO [address] [place] [address] [place] Mccollum [address] [phone] 10/27/2017 Office Visit Internal Medicine Abram Owens MD [address] [place] [address] [place] MCCOLLUM [address] [phone] Health Maintenance Due Date Last Done Comments COLONOSCOPY-EVERY 10 YRS AGE S 50-75 1992 LUNG CANCER SCREENING YEARLY -USE SMARTSET 25243 1997 TETANUS EVERY 10 YEARS-TDAP (BOOSTRIX OR [...] Phone Address MEDICARE MEDICARE A AND B [id number] [place] as of this encounter
--- OUTSIDE RECORDS SUMMARY | 2023-04-08 23:32 | External Medical Summary | Summary of Care ---
Author Name Unknown Organization [place] [address] Phone Care Team Providers Care Medical Physics Professor Name Role Phone Abram Owens MD Primary Care Provider [phone] Encounter Details Date Type Department Care Team [...] Date Resolved Date COPD exacerbation ([facility]) 10/16/2016 05/03/20 17 Inflammation of sacroiliac joint ([facility]) 5 03/12/2017 Other abnormal glucose [...] Office Visit Internal Medicine Jackelyn Harmon DO [address] [place] [address] [place] Mccollum [address] [phone] 10/27/2017 Office Visit Internal Medicine Abram Owens MD [address] [place] [address] [place]RAH[place] MCCOLLUM [address] [phone] Health Maintenance Due Date Last Done Comments COLONOSCOPY-EVERY 10 YRS AGE S 50-75 1992 LUNG CANCER SCREENING YEARLY -USE SMARTSET 16887 1997 TETANUS EVERY 10 YEARS-TDAP (BOOSTRIX OR [...] Phone Address MEDICARE MEDICARE A AND B [id number] [place] of this encounter
--- OUTSIDE RECORDS SUMMARY | 2023-04-08 23:32 | External Medical Summary | Summary of Care ---
Author Name Unknown Organization [place] [address] Phone Care Team Providers Care Seismic Prospecting Observer Name Role Phone Abram Owens MD Primary Care Provider [phone] Reason for Visit * Reason Comments TEST RESULTS FYI Encounter Details Date Type Department Care Team Description 06/09/2017 Telephone Internal Medicine [address] [address] Abram Owens MD [address] [place] [address] [place] [address] [phone] TEST RESULTS; FYI Allergies No Known Allergiesas of this encounter Medications Prescription Sig. Disp. Refills Start Date End Date Status MEDICAL INSTRUCTIONSIndicati ons:Severe chronic obstructive pulmonary disease (HCC),COPD exacerbation ([facility]) Nebulizer and tubing 1 Each 1 03/12/2017 [...] encounter Miscellaneous Notes * Telephone Encounter - Nikole Alonzo LPN - 06/14/2017 12:47 PM EST Message given to pt * Telephone Encounter - Abram Owens MD - 06/14/2017 11:55 AM EST I can order the CXR * Telephone Encounter - Alpha Kristi LARISA Mcgraw - 06/14/2017 11:33 AM EST Pt calling and was in [facility] ER 06/13/17 and had a repeat cxr and still shows pneumonia. Given ciproflaxin 500ng once daily for 10 day and to have a repeat cxr in 1-2 weeks. Please advise if pcp will order cxr or does he need to call ? * Telephone Encounter - Shantelle Jacobo RN - 06/14/2017 9:24 AM EST Called pt to see how he is feeling. And give message from Dr harmon. message left for patient to call back. I was able to reach his son at the cell # listed. He states his father was to [facility] last pm and was told pneumonia had not cleared. * Telephone Encounter - Shantelle Jacobo RN - 06/09/2017 10:01 AM EST message left for patient to call back. * Telephone Encounter - Shantelle Jacobo RN - 06/09/2017 9:08 AM EST ----- Message from Jackelyn Harmon DO sent at 06/08/2017 11:40 PM EST ----- Please call patient: CXR shows improvement but no resolution of his infiltrate. Will need follow up imaging. Has Dr. Gill ordered this? in this encounter Plan of Treatment Upcoming Encounters Date Type Specialty Care Team Description 10/27/2017 Office Visit Internal Medicine Abram Owens MD [address] [place] [address] [place] MCCOLL[place] [address] [phone] Scheduled Tests Name Priority Associated Diagnoses Order S chedule XR CHEST 2 VIEWS Routine Aspiration pneumonia, unspecified aspiration pneumonia type, unspecified laterality, unspecified part of lung (HCC) Expected: 06/24/2017, Expires: 09/12/2017 Health Maintenance Due Date Last Done Comments COLONOSCOPY-EVERY 10 YRS AGE S 50-75 1992 LUNG CANCER SCREENING YEARLY -USE SMARTSET 93080 1997 TETANUS EVERY 10 YEARS-TDAP (BOOSTRIX OR [...] fileas of this encounter Visit Diagnoses Diagnosis Aspiration pneumonia, unspec ified aspiration pneumonia type, unspecified laterality, unspecified part of lung (HCC) - Primary in this encounter Insurance Payer Benefit Plan / Group Subscriber ID Type Phone Address MEDICARE MEDICARE A AND B [id number] [place] as of this encounter
--- OUTSIDE RECORDS SUMMARY | 2023-04-08 23:32 | External Medical Summary | Summary of Care ---
Author Name Unknown Organization [place] [address] Phone Care Team Providers Care Confectionery Cooker Name Role Phone Abram Owens MD Primary Care Provider [phone] Encounter Details Date Type Department Care Team Description 05/17/2017 Scan Encounter Unspecified Department <No scans attached> [...] Office Visit Internal Medicine Abram Owens MD [address] [place] [address] [place] MCCOLLUM [address] [phone] Health Maintenance Due Date Last Done Comments COLONOSCOPY-EVERY 10 YRS AGE S 50-75 1992 LUNG CANCER SCREENING YEARLY -USE SMARTSET 79133 1997 TETANUS EVERY 10 YEARS-TDAP (BOOSTRIX OR [...] Phone Address MEDICARE MEDICARE A AND B [id number] [place] as of this encounter
--- OUTSIDE RECORDS SUMMARY | 2023-04-08 23:32 | External Medical Summary | Summary of Care ---
Author Name Unknown Organization [place] [address] Phone Care Team Providers Care J2Ee Java Developer Name Role Phone Abram Owens MD Primary Care Provider [phone] Reason for Visit * Reason Comments HOSPITAL FOLLOW-UP HOSPITAL FOLLOW-UP Encounter Details Date Type Department Care Team Description 05/28/2017 Office Visit Internal Medicine [address] [address] [address] [place] [address] [phone] Hospital discharge follow-up*;Severe chronic obstructive pulmonary disease (HCC);Pneumonia of left lower lobe due to Klebsiella pneumoniae ([facility]);COPD exacerbation ([facility]);Dependence on supplemental oxygen Allergies No Known Allergiesas of this encounter [...] 52 Quit: 04/07 Smokeless Tobacco: Never Used Tobacco Cessation:Counseling Given: No Comments:started age 16 Alcohol Use Drinks/Week oz/Week Comments Yes 3-4 beers per d ay Sex Assigned at Date Recorded Not on file as of this encounter Last Filed Vital Signs Vital Sign Reading Time Taken Blood Pressure 122/70 05/28/2017 3:43 PM EST Pulse 110 05/28/2017 3:43 PM EST Temperature 36.8 C (98.3 F) 05/28/2017 3 :43 PM EST Respiratory Rate 18 05/28/2017 3:43 PM EST Oxygen Saturation 89% 05/28/2017 3:4 3 PM EST Inhaled Oxygen Concentration - - Weight 62.7 kg (138 lb 3.2 oz) 05/28/20 17 3:43 PM EST Height - - Body Mass Index 21.29 05/28/2017 3:43 PM EST in this encounter Progress Notes * Jackelyn Harmon, DO - 05/28/2017 3:48 PM EST Formatting of this note may be different from the original. SUBJECTIVE: Jer Abreu Jr. is a 76 year old male. Chief Complaint Patient presents with HOSPITAL FOLLOW-UP HOSPITAL FOLLOW-UP Recent Admission: Patient was recently admitted to [facility]. The date of discharge was 05/25/2017. Discharge report received and reviewed. HPI: Today he reports that his breathing feel okay. He is still slightly short of breath. He is using his nebulizer about three times per day. He is compliant with taking his prednisone and levaquin.Much less sputum production. No fevers, chills. He is a former smoker. He is scheduled to see Dr. Gill on 06/02/2017. He is to have a CXR done in 1 week. He does not know if he is to have this done prior to his appointment. He has home oxygen, including portable tanks, but he is not using it today. He does use 2L per NC most of the time that he is at home. Patient Active Problem List Diagnosis Code Tobacco use disorder F17.200 ADVANCE DIRECTIVE INFORMATION Other disorders of vitreous H43.89 Loss of teeth due to trauma, extraction, or periodontal disease 525.1 Severe chronic obstructive pulmonary disease (HCC) J44.9 Current Outpatient Prescriptions Medication Sig Dispense Refill levofloxacin (LEVAQUIN) 500 MG Tablet Take 500 mg by mouth daily. Indications: x 7 days post hospital PredniSONE (DELTASONE) 20 MG Tablet Take 20 mg by mouth daily. Indications: 2 tabs (40mg) dailyfor 8 days folic acid 1 MG Tablet Take 1 [...] as needed for Wheezing. 120 Vial 11 roflumilast (DALIRESP) 500 MCG Tablet Take 1 Tab by mouth daily. (Patient taking differently: Take 500 mcg by mouth daily. Indications: Not taking-was over $300- CATHY to assist with PACE form?) 30 Tab 5 Current and discharge medications have been reconciled. Review of patient's allergies indicates: No Known Allergies OBJECTIVE: BP 122/70 | Pulse 110 | Temp (Src) 98.3 (Tympanic) | Resp 18 | Wt 138 lbs 3.2 oz (62.687kg) | BMI 21.29 kg/m | BSA 1.73 m | SaO2 89% Review Of Systems: Skin: negative Eyes: negative Ears/Nose/Throat: negative Respiratory: as per HPI Cardiovascular: negative Gastrointestinal: negative Genitourinary: negative Musculoskeletal: negative Neurologic: negative Psychiatric: negative Hematologic/Lymphatic/Immunologic: negative Endocrine: negative PHYSICAL EXAM: General: alert, healthy, no distress, well nourished and well developed Neck: supple, no adenopathy, thyroid normal size, non-tender, without nodularity Heart: regular rate & rhythm and no murmurs Lungs: chest symmetric with normal AP diameter, no chest deformities noted, normal respiratory rateand rhythm, lungs clear to auscultation, except in the left base, pulse ox is 89% Abdomen: abdomen soft, non-tender and normal bowel sounds Extremities: no joint deformities, effusion, or inflammation, no edema Neuro Exam: alert & oriented x 3 with fluent speech, no focal motor/sensory deficits, gait normal ASSESSMENT/PLAN: Z09 Hospital discharge follow-up (primary encounter diagnosis) - seems to be improving. Continue antibiotics and prednisone. Continue nebulizer. Keep scheduled follow up with pulmonary. Written ordergiven to patient to have CXR on the day of his hospital follow up with Bridget - advised to havethis done at [facility] as Dr. Gill will be able to review the image with him at his appointment. Plan: Disch med recon cur med lis J44.9 Severe chronic obstructive pulmonary disease (hcc) J15.0 Pneumonia of left lower lobe due to klebsiella pneumoniae (hcc) Plan: Cxr 2 views ap/pa & lateral J44.1 Copd exacerbation (hcc) Z99.81 Dependence on supplemental oxygen Follow up with Dr. Owens as scheduled. Sooner if needed. Jackelyn Harmon DO in this encounter Nursing Notes * Marcela Dexter LPN - 05/28/2017 3:43 PM EST Patient presents today for hospital follow up. in this encounter Plan of Treatment Upcoming Encounters Date Type Specialty Care Team Description 10/27/2017 Office Visit Internal Medicine Abram Owens MD [address] [place] [address] [place] [address] [phone] Scheduled Tests Name Priority Associated Diagnoses Order S chedule CXR 2 VIEWS AP/PA & LATERAL Routine Pneumonia of left lower lobe due to Klebsiella pneumoniae (HCC) Ordered: 05/28/2017 Health Maintenance Due Date Last Done Comments COLONOSCOPY-EVERY 10 YRS AGE S 50-75 1992 LUNG CANCER SCREENING YEARLY -USE SMARTSET [id number] 1997 TETANUS EVERY 10 YEARS-TDAP (BOOSTRIX OR [...] fileas of this encounter Visit Diagnoses Diagnosis Hospital discharge follow-up - Primary Other follow-up examination Severe chronic obstructive p ulmonary disease (HCC) Chronic airway obstruction, not elsewhere classified Pneumonia of left lower lobe due to Klebsiella pneumoniae (HCC) COPD exacerbation (HCC) Obstructive chronic bronchitis with exacerbation Dependence on supplemental o xygen in this encounter Insurance Payer Benefit Plan / Group Subscriber ID Type Phone Address MEDICARE MEDICARE A AND B [id number] Medicare [place] as of this encounter"
--- OUTSIDE RECORDS SUMMARY | 2023-04-08 23:33 | External Medical Summary | Summary of Care ---
Author Name Unknown Organization [place] [address] Phone Care Team Providers Care Taxation Consultant Name Role Phone Abram Owens MD Primary Care Provider [phone] Reason for Visit * Reason Comments FYI Encounter Details Date Type Department Care Team Description 05/17/2017 Telephone Internal Medicine [address] [address] Ohs, Khadijah Susnhine RN [address] [place] [address] [place] [id number] FYI Allergies No Known Allergiesas of this encounter Medications Prescription Sig. Disp. Refills Start Date End Date Status MEDICAL INSTRUCTIONSIndicati ons:Severe chronic obstructive pulmonary disease (HCC),COPD exacerbation ([facility]) Nebulizer and tubing 1 Each 1 [...] Disk Dosing Unit 5 04/30/2017 Active oxygen GAS Use 2 L/min(Oxygen) as directed continuous. 04/28/2017 Active as of this encounter Active Problems Problem Noted Date Severe chronic obstructive pulmonary dis ease ([facility]) 10/28/2016 Overview: severe by ATS criteria. significant response after bronchodilator ADVANCE DIRECTIVE INFORMATION 02/01/2008 Overview: No, Advance Directive brochure given to patient. Tobacco use disorder 04/22/2005 Other disorders of vitreous Loss of teeth due to trauma, extraction, or periodontal disease as of this encounter Resolved Problems Problem Noted Date Resolved Date COPD exacerbation ([facility]) 10/16/2016 05/03/20 17 Inflammation of sacroiliac joint ([facility]) 5 03/12/2017 Other abnormal glucose [...] Telephone Encounter - Ligia Connors LPN - 05/17/2017 12:41 PM EST noted * Telephone Encounter - Khadijah Rehman RN - 05/17/2017 11:49 AM EST After speaking with Daniel again. I advised ER. He had just walked a few steps to "get my coffee" and he was really SOB. Spoke with and she will transport him. He refuses the ambulance. He does have 02 tanks to get him to the ER. Just AUGUSTINE Rehman RN * Telephone Encounter - Khadijah Rehman RN - 05/17/2017 10:35 AM EST I spoke with Daniel and he is more SOB. Is there anywhere he can be seen today? He will see pulm but not until 05-28-17. Thanks, Khadijah Rehman, RN in this encounter Plan of Treatment Upcoming Encounters Date Type Specialty Care Team Description 10/27/2017 Office Visit Internal Medicine Abram Owens MD [address] [place] [address] [place] [phone] Health Maintenance Due Date Last Done Comments [...] EVERY 3 YRS- AGE 45 AND ABOVE 03/07/2020 03/07/2017, 10/01/2016, 02/17/2008, Additional history exists Influenza Vaccine (FLU shot) Completed 11/2016, 03/12/2009, 04/24/2006, Additional history exists as of this encounter Implants Not on fileas of this encounter Insurance Payer Benefit Plan / Group Subscriber ID Type Phone Address MEDICARE MEDICARE A AND B [id number] Medicare [facility] of this encounter
--- OUTSIDE RECORDS SUMMARY | 2023-04-08 23:33 | External Medical Summary | Summary of Care ---
Author Name Unknown Organization [place] [address] Phone Care Team Providers Care Utility Worker Film Processing Name Role Phone Abram Owens MD Primary Care Provider [phone] Encounter Details Date Type Department Care Team Description 05/18/2017 Orders Only Internal Medicine [address] [address] Abram Owens MD [address] [place] [address] [phone] Allergies No Known Allergiesas of this encounter [...] Date Resolved Date COPD exacerbation ([facility]) 10/16/2016 05/03/20 17 Inflammation of sacroiliac joint ([facility]) 5 03/12/2017 Other abnormal glucose [...] Visit Internal Medicine Abram Owens MD [address] [place] [address] [place] [address] [phone] Pending Results Name Priority Associated Diagnoses Date/Ti me CHEST 1 VIEW Routine 05/18/2017 12:0 0 AM EST Health Maintenance Due Date Last [...] Phone Address MEDICARE MEDICARE A AND B [id number] Medicare [place] as of this encounter
--- OUTSIDE RECORDS SUMMARY | 2023-04-08 23:33 | External Medical Summary | Summary of Care ---
Author Name Unknown Organization [place] [address] Phone Care Team Providers Care Soiled Linen Distributor Name Role Phone Unavailable Primary Care Provider Unavailabl e Encounter Details Date Type Department Care Team Description 04/28/2017 Scan Encounter Unspecified Department <No scans attached> Allergies No Known Allergiesas of this encounter Medications Prescription Sig. Disp. Refills Start Date End Date Status MEDICAL INSTRUCTIONSIndicatio ns:Severe chronic obstructive pulmonary disease (HCC),COPD exacerbation ([facility]) Nebulizer and tubing 1 Each 1 03/12/2017 Active albuterol sulfate (PROVENTIL) (2.5 MG/3ML) 0.083% nebulizer solutionIndications:S evere chronic obstructive pulmonary disease ([facility]),COPD exacerbation ([facility]) Inhale 1 Vial via nebulizer every 4 hours as needed for Wheezing. 120 Vial 11 03/12/2017 Active as of this encounter Active Problems Problem Noted Date Severe chronic obstructive pulmonary dis ease ([facility]) 10/28/2016 Overview: severe by ATS criteria. significant response after bronchodilator COPD exacerbation ([facility]) 10/16/2016 ADVANCE DIRECTIVE INFORMATION 02/01/2008 Overview: No, Advance Directive brochure given to patient. Other abnormal glucose 04/23/2005 Overview: glucose 156 Tobacco use disorder 04/22/2005 SPRAIN SACROILIAC 03/19/2005 Other specified disorders of rotator cuff syndrome of shoulder and allied disorders 05/23/2004 Overview: right shoulder Other disorders of vitreous Loss of teeth due to trauma, extraction, or periodontal disease as of this encounter Resolved Problems Problem Noted Date Resolved Date Inflammation of sacroiliac joint (HCC) 04/24/200 5 03/12/2017 as of this encounter Immunizations Name Dates Previously Given Next Due PPD 04/22/2005 Seasonal Influenza, Quadriva lent, No Preserve, 6 [...] Encounters Date Type Specialty Care Team Description 05/03/2017 Office Visit Internal Medicine Abram Owens MD [address] [place] [address] [place] [phone] Health Maintenance Due Date Last Done Comments COLONOSCOPY-EVERY 10 YRS AGE S 50-75 1992 PNEUMOCOCCAL ADULT 65 YRS AN D OVER (1 of 2 - PCV13) 11/27/2007 TETANUS EVERY 10 YEARS-TDAP (BOOSTRIX OR ADACEL) SUGGESTED IF NOT RECEIVED IN THE PAST. 11/27/2007 LIPID SCREEN EVERY 5 YRS-MEN AGE 35-75 02/16/2013 02/17/2008 *ADVANCE DIRECTIVE NOT ON FILE 10/06/2016 *DEPRESSION SCREENING, RAMESH Chairez FOR PTS 18 AND OVER 10/06/2016 DIABETES SCREEN EVERY 3 YRS- AGE 45 AND ABOVE 03/07/2020 03/07/2017, 10/01/2016, 02/17/2008, Additional history exists Influenza Vaccine (FLU shot) Completed 11/2016, 03/12/2009, 04/24/2006, Additional history exists as of this encounter Implants Not on fileas of this encounter Insurance Payer Benefit Plan / Group Subscriber ID Type Phone Address MEDICARE MEDICARE A AND B [id number] Medicare [facility] as of this encounter
--- OUTSIDE RECORDS SUMMARY | 2023-04-08 23:33 | External Medical Summary ---
Author Name Unknown Address [address] [place] [address] Phone Organization K01:[facility] [address] [facility] [address] Laboratory Report Ordering Provider Test Date Status NICK QURESHI 10/01/2016 16:17:00 Final Observation Date Value Abnormality Reference Status WBC, Total 10/01/2016 22:14 7.31 4.00-10.80 F inal RBC 10/01/2016 22:14 4.31 Below low normal 4.50-5 .25 Final Hemoglobin 10/01/2016 22:14 14.5 14.0-16.8 Fi nal HCT 10/01/2016 22:14 42.3 40.0-48.4 Fin al MCV 10/01/2016 22:14 98.1 82.0-99.5 Fin al MCH 10/01/2016 22:14 33.6 27.0-34.0 Fin al MCHC 10/01/2016 22:14 34.3 32.0-36.0 Fin al RDW 10/01/2016 22:14 11.9 11.5-15.5 Fin al Platelets 10/01/2016 22:14 252 140-400 Fin al MPV 10/01/2016 22:14 9.5 6.6-11.1 Fin al Segs 10/01/2016 22:14 70.2 40-75 Fin al Lymphs % 10/01/2016 22:14 12.9 Below low normal 18-42 Final Monos 10/01/2016 22:14 13.5 Above high normal 1-11 Final Eosinophils 10/01/2016 22:14 2.3 0-6 F inal Basos 10/01/2016 22:14 0.7 0-2 Fin al Immature Granulocyte, Percent 10/01/2016 22:14 0.4 0-2 Final Absolute Segs 10/01/2016 22:14 5.13 1.8-7.7 Final Lymphs, absolute 10/01/2016 22:14 0.94 Below low normal 1.0-4.8 Final Monos, Abs 10/01/2016 22:14 0.99 0.0-1.1 Fi nal Eos, Abs 10/01/2016 22:14 0.17 0.0-0.7 Fin al Basos, Abs 10/01/2016 22:14 0.05 0.0-0.2 Fi nal Immature Granulocytes, Number 10/01/2016 22:14 0.03 0.0-0.2 Final Performing Location [facility] [address] [facility] [address]
--- OUTSIDE RECORDS SUMMARY | 2023-04-08 23:33 | External Medical Summary | Summary of Care ---
Author Name Unknown Organization [place] [address] Phone Care Team Providers Care Swedish Masseuse Name Role Phone Abram Owens MD Primary Care Provider [phone] Encounter Details Date Type Department Care Team Description 05/17/2017 Awning Hanger SupervisorCoil Tester Medicine [address] [address] Ohs, Khadijah Sunshine RN [address] [place] [address] [phone] COPD exacerbation (HCC)*;Severe chronic obstructive pulmonary disease (HCC);SOB (shortness [...] Date Severe chronic obstructive pulmonary dis ease ([facility]) 10/28/2016 Overview: severe by ATS criteria. significant response after bronchodilator ADVANCE DIRECTIVE INFORMATION 02/01/2008 Overview: No, Advance Directive brochure given to patient. Tobacco use disorder 04/22/2005 Other disorders of vitreous Loss of teeth due to trauma, extraction, or periodontal disease as of this encounter Resolved Problems Problem Noted Date Resolved Date COPD exacerbation ([facility]) 10/16/2016 05/03/20 17 Inflammation of sacroiliac joint ([facility]) 5 03/12/2017 Other abnormal glucose 04/23/2005 [...] Progress Notes * Khadijah Rehman RN - 05/17/2017 10:57 AM EST Case Management Assessment Is this call for a hospital, fci or rehab facility discharge to home? No S: Reports: Call to Daniel today for 2 week SUELMA call. He is very SOB on the phone. States his breathing has been more difficult over the last few days. He is coughing up green to yellow mucus and coughing more than he had been. He is using his 02 at all times. He tells me he is using his nebulizer treatments and his Advair as directed. His breathing is much worse with exertion. He says any activity and can't catch his breath. Was going to try and get him seen today although feel he needs to go to the ER. I offered to call 911 for him but wants to wait for his to come home. She just went to the bank and will be home soon. Advised to sit an rest for now. I advised ambulance transfer although he wants his to take himas he can't afford ambulance bills. When resting his breathing is improved. He does have full 02 tanks for the ride to [facility]. I then spoke with Violeta. She was advised that Daniel needs to go to the ER. She will take him now. O: Phone visit for Comprehensive assessment as well as week 3 SULEMA for hospital stay for COPD exacerbation/pneumonia. Medications: takes all medications as prescribed. A: Patient Centered Prioritized Goals: Development of self - management action plan with patient/caregiver/ provider. Patient and caregiver demonstrate basic understanding of their disease process. Exacerbations have been prevented, minimized or reduced in severity. Co-morbid conditions identified and managed. Patient/ caregiver demonstrates adherence to treatment plan. Identified Barriers: Older than 70 years P: Awning Hanger Supervisor Interventions: Reinforce Self Management Action Plan established [...] to call patient in a few days to reassess and update plan of care, instructed to call Awning Hanger Supervisor or Primary Care Provider with change in symptoms or as needed before next follow-up, verbalizesunderstanding and agrees with plan. Khadijah Rehman, RN Outpatient Awning Hanger Supervisor in this encounter Plan of Treatment Upcoming Encounters Date Type Specialty Care Team Description 10/27/2017 Office Visit Internal Medicine Roman, Abram Mon MD [address] [place] [address] [place] [address] [phone] Health Maintenance Due Date Last Done Comments [...] Phone Address MEDICARE MEDICARE A AND B [id number] [place] as of this encounter
--- OUTSIDE RECORDS SUMMARY | 2023-04-08 23:33 | External Medical Summary | Summary of Care ---
Author Name Unknown Organization [place] [address] Phone Care Team Providers Care Soda Fountain Clerk Name Role Phone Abram Owens MD Primary Care Provider Encounter Details Date Type Department Care Team Description 04/28/2017 Scan Encounter Unspecified Department <No scans attached> Allergies No Known Allergiesas of this encounter Medications Prescription Sig. Disp. Refills Start Date End Date Status MEDICAL INSTRUCTIONSIndicatio ns:Severe chronic obstructive pulmonary disease (HCC),COPD exacerbation ([facility]) Nebulizer and tubing 1 Each 1 03/12/2017 Active albuterol sulfate (PROVENTIL) (2.5 MG/3ML) 0.083% nebulizer solutionIndications:S evere chronic obstructive pulmonary disease (HCC),COPD exacerbation ([facility]) Inhale 1 Vial via nebulizer every 4 hours as needed for Wheezing. 120 Vial 11 03/12/2017 Active as of this encounter Active Problems Problem Noted Date Severe chronic obstructive pulmonary dis ease ([facility] [...] 05/03/20 17 Inflammation of sacroiliac joint (HCC) 200 5 03/12/2017 Other abnormal glucose 04/23/2005201 [...] as of this encounter Plan of Treatment Health Maintenance [...] Phone Address MEDICARE MEDICARE A AND B [id number] [place] this [place]
--- OUTSIDE RECORDS SUMMARY | 2023-04-08 23:33 | External Medical Summary | Summary of Care ---
Author Name Unknown Organization [place] [address] Phone Care Team Providers Care Sales Facilitator Name Role Phone Abram Owens MD Primary Care Provider [phone] Reason for Visit * Reason Comments STATUS CHECK Encounter Details Date Type Department Care Team Description 05/03/2017 Office Visit Internal Medicine [address] [address] Abram Owens MD [address] [place] [address] [place] [phone] Severe chronic obstructive pulmonary disease (HCC)*;COPD exacerbation (HCC) Allergies No Known Allergiesas of this encounter Medications Prescription Sig. Disp. Refills Start Date End Date Status MEDICAL INSTRUCTIONSIndicat ions:Severe chronic obstructive pulmonary disease (HCC),COPD exacerbation ([facility]) Nebulizer and tubing 1 Each 1 03/12/2017 [...] 100 mg by mouth daily. 04/29/2017 Active PredniSONE (DELTASONE) 20 MG TabletIndications:2 tabs daily x 2 d, 1 tab daily for 2 days and 1/2 tab daily for 2 then stop Take 20 mg by mouth daily. Indications: 2 tabs daily x 2 d, 1 tab daily for 2 days and 1/2 tab daily for 2 then stop 04/29/2017 05/05/2017 Active albuterol (PROAIR HFA) 108 (90 BASE) [...] Problem Noted Date Resolved Date COPD exacerbation ([facility]) 10/16/2016 05/03/20 17 Inflammation [...] Vital Sign Reading Time Taken Blood Pressure 118/62 05/03/2017 2:33 PM EST Pulse 80 05/03/2017 2:33 PM EST Temperature 37 C (98.6 F) 05/03/2017 2:3 3 PM EST Respiratory Rate 16 05/03/2017 2:33 PM EST Oxygen Saturation - - Inhaled Oxygen Concentration - - Weight 59.4 kg (131 lb) 05/03/2017 2:33 PM EST Height - - Body Mass Index 20.18 05/03/2017 2:33 PM EST in this encounter Progress Notes * Abram Owens MD - 05/03/2017 3:00 PM EST Formatting of this note may be different from the original. Jer was admitted to [facility] on 04/23 with acute exacerbation COPD and he had a flu shot. Like the X-ray from 03/07 he had LLL consolidation and has been referred to Dr Gill to consider scoping. I asked him about his drinking and he said he is "all right. I'm not an alcoholic." He was sent home on Zithromax and prednisone as well as vitamins Past Medical History: Diagnosis Date Acute exacerbation of COPD with asthma ([facility]) 04/23/2017 [facility] Inflammation of sacroiliac joint ([facility]) 04/24/05 Loss of teeth due to trauma, extraction, or periodontal disease Other abnormal glucose 04/23/05 glucose 156 Other abnormal glucose 02/22/08 glucose 167 Other disorders of vitreous 12/05 Posterior vitreous detachment OS Other specified disorders of rotator cuff syndrome of shoulder and allied disorders 05/10 right shoulder Severe chronic obstructive pulmonary disease (HCC) 10/28/2016 severe by ATS criteria. significant response after bronchodilator TICK BITE RIGHT FOOT 02/09 Tobacco use disorder Past Surgical History: Procedure Laterality Date ECHO, COMPLETE (2D), TRANS-THORACIC 04/23/[address] [...] Current Outpatient Prescriptions Medication Sig Dispense Refill folic acid 1 MG Tablet Take 1 mg by mouth daily. THIAMINE (VITAMIN B-1) 100 MG Tablet Take 100 mg by mouth daily. PredniSONE (DELTASONE) 20 MG Tablet Take 20 mg by mouth daily. Indications: 2 tabs daily x 2 d,1 tab daily for 2 days and 1/2 tab daily for 2 then stop albuterol (PROAIR HFA) 108 (90 BASE) MCG/ACT inhaler Inhale 2 Puffs by mouth every 4 hours as needed for Shortness of Breath or Wheezing. 1 Inhaler 5 fluticasone-salmeterol (ADVAIR DISKUS) 250-50 MCG/DOSE inhaler Inhale 1 Puff by mouth 2 times aday. 1 Disk Dosing Unit 5 oxygen GAS Use 2 L/min(Oxygen) as directed continuous. MEDICAL INSTRUCTIONS Nebulizer and tubing 1 Each 1 albuterol sulfate (PROVENTIL) (2.5 MG/3ML) 0.083% nebulizer solution Inhale 1 Vial via nebulizer every 4 hours as needed for Wheezing. 120 Vial 11 His A1c in the hospital was 5.0 so diabetes is not an issue. O: Blood pressure 118/62, pulse 80, temperature 37 C (98.6 F), resp. rate 16, weight 59.4 kg (131 lb). General appearance: well developed, well nourished and in no acute distress. He has some wheezing yet. Heart regular, no murmurs A: J44.9 Severe chronic obstructive pulmonary disease (hcc) (primary encounter diagnosis) J44.1 Copd exacerbation (hcc) Follow up: Return in about 6 months (around 10/31/2017). in this encounter Plan of Treatment Upcoming Encounters Date Type Specialty Care Team Description 05/03/2017 Office Visit Internal Medicine Abram Owens MD [address] [place] [address] [place] [address] [phone] Severe chronic obstructive pulmonary disease (HCC)*;COPD exacerbation (HCC) Health Maintenance Due Date Last Done Comments [...] Primary Chronic airway obstruction, not elsewhere classified COPD exacerbation (HCC) Obstructive chronic bronchitis with exacerbation in this encounter Insurance Payer Benefit Plan / Group Subscriber ID Type Phone Address MEDICARE MEDICARE A AND B [id number] Medicare [place] as of this encounter
--- OUTSIDE RECORDS SUMMARY | 2023-04-08 23:33 | External Medical Summary | Summary of Care ---
Author Name Unknown Organization [place] [address] Phone Care Team Providers Care Negative Retoucher Name Role Phone Abram Owens MD Primary Care Provider [phone] Encounter Details Date Type Department Care Team Description 05/04/2017 Roller HelperChairman Ceo Medicine [address] [address] Ohs, Khadijah Sunshine RN [address] [place] [address] [phone] Severe chronic obstructive pulmonary disease (HCC)*;COPD exacerbation (HCC);SOB (shortness of breath);Cough Allergies No Known Allergiesas of this encounter [...] Noted Date Resolved Date COPD exacerbation ([facility]) 10/16/2016 05/03/20 17 Inflammation [...] Progress Notes * Khadijah Rehman RN - 05/04/2017 1:41 PM EST #1 call week 1 [facility] for hospital stay for COPD exacerbation. Daniel was here yesterday and saw Dr Owens for his hospital discharge f/u. He tells me today that he has been coughing up greenish colored mucus today. The Prednisone is finished today and he only was to take Azithromycin for 2 days post hospital. He c/o SOB with only a fewsteps. He is wearing his 02 as directed. Also using the nebulizer and inhalers as directed. He doeshave some wheezing off and on as well. No fever or chills. sent a message to Dr Owens for advice due to "green" mucus. Dr Owens feels that this may not be infectious and recommends he see Dr Gill in pulmonary as soon as he can. I offered to call and get him scheduled but he would rather call himself. He was given the pulmonary office number of [phone]. CM will f/u again later this week. Khadijah Rehman, RN in this encounter Plan of Treatment Health Maintenance Due Date Last Done Comments COLONOSCOPY-EVERY 10 YRS AGE S 50-75 1992 TETANUS EVERY 10 YEARS-TDAP (BOOSTRIX OR ADACEL) SUGGESTED IF NOT RECEIVED IN THE PAST. 11/27/2007 LIPID SCREEN EVERY 5 YRS-MEN AGE 35-75 02/16/2013 02/17/2008 *ADVANCE DIRECTIVE NOT ON FILE 10/06/2016 *DEPRESSION SCREENINGRAMESH FOR PTS 18 AND OVER 10/06/2016 PNEUMOCOCCAL [...] exacerbation (HCC) Obstructive chronic bronchitis with exacerbation SOB (shortness of breath) Shortness of breath Cough in this encounter Insurance Payer Benefit Plan / Group Subscriber ID Type Phone Address MEDICARE MEDICARE A AND B [id number] [facility] encounter
--- OUTSIDE RECORDS SUMMARY | 2023-04-08 23:33 | External Medical Summary | Summary of Care ---
Author Name Unknown Organization [place] [address] Phone Care Team Providers Care Clay Dry Press Operator Name Role Phone Abram Owens MD Primary Care Provider [phone] Reason for Visit * Reason Comments ADVICE Encounter Details Date Type Department Care Team Description 05/23/2017 Telephone Internal Medicine [address] [address] Abram Owens MD [address] [place] [phone] ADVICE Allergies No Known Allergiesas of this encounter Medications Prescription Sig. Disp. Refills Start Date End Date Status MEDICAL INSTRUCTIONSIndicati ons:Severe chronic obstructive pulmonary disease (HCC),COPD exacerbation ([facility]) Nebulizer and tubing 1 Each 1 03/12/2017 [...] ion 04/28/2017 Active roflumilast (DALIRESP) 500 MCG Tablet Take 500 mcg by mouth daily. 05/19/2017 Active as of this encounter Active Problems [...] encounter Miscellaneous Notes * Telephone Encounter - Vandana Duenas LPN - 05/24/2017 9:45 AM EST I called Noni and scheduled the pt with 05/26/17 * Telephone Encounter - Brianda Barclay, JAH - 05/23/2017 10:40 AM EST Emergency Room, Hospital Discharge, or [facility] Follow-Up?: hospital discharge Hospital: [facility] Admitting Diagnosis: COPD Discharge Diagnosis: "" Date of Discharge: 05/24/17 Noni from [facility] calling stating they are requesting pt to be seen by a different provider than Dr. Owens. Please call pt back at [phone] to schedule. Thank you. in this encounter Plan of Treatment Upcoming Encounters Date Type Specialty Care Team Description 05/26/2017 Office Visit Internal Medicine Paul Ramirez MD [address] [place] [address] [place] [address] [phone] 10/27/2017 Office Visit Internal Medicine Abram Owens MD [address] [place] [address] [place] M[place] [phone] Health Maintenance Due Date Last Done Comments COLONOSCOPY-EVERY 10 YRS AGE S 50-75 1992 LUNG CANCER SCREENING YEARLY -USE SMARTSET [address] 1997 TETANUS EVERY 10 YEARS-TDAP (BOOSTRIX OR [...] Phone Address MEDICARE MEDICARE A AND B [id number] [place] of this encounter
--- OUTSIDE RECORDS SUMMARY | 2023-04-08 23:33 | External Medical Summary | Summary of Care ---
Author Name Unknown Organization [place] [address] Phone Care Team Providers Care Tobacco Hanger Name Role Phone Abram Owens MD Primary Care Provider [phone] Reason for Visit * Reason Comments FYI Encounter Details Date Type Department Care Team Description 05/19/2017 Telephone Internal Medicine [address] [address] Ohs, Khadijah Sunshine RN [address] [place] [address] [place] [phone] FYI Allergies No Known Allergiesas of this [...] Telephone Encounter - Abram Owens MD - 05/21/2017 3:23 PM EST ok * Telephone Encounter - Khadijah Rehman RN - 05/21/2017 2:53 PM EST I discovered Daniel was admitted to [facility] early yesterday am. He woke up and couldn't breath. Pulmonaryis following him in the hospital. Just AUGUSTINE Rehman RN * Telephone Encounter - Khadijah Rehman RN - 05/19/2017 8:06 AM EST Daniel is seeing pulmonary this Wednesday05-21-17. The ER Dr spoke with Pulm while he was in the ER 05-17-17 so he was scheduled sooner than 05-28-17. Just AUGUSTINE Rehman RN in this encounter Plan of Treatment Upcoming Encounters Date Type Specialty Care Team Description 10/27/2017 Office Visit Internal Medicine Abram Owens MD [address] [place] [address] [place] MCCOLL[place] [address] [phone] Health Maintenance Due Date Last Done Comments COLONOSCOPY-EVERY 10 YRS AGE S 50-75 1992 LUNG CANCER SCREENING YEARLY -USE SMARTSET [id number] 1997 TETANUS EVERY 10 YEARS-TDAP (BOOSTRIX OR ADACEL) SUGGESTED IF NOT RECEIVED IN THE PAST. 11/27/2007 LIPID SCREEN EVERY 5 YRS-MEN AGE 35-75 02/16/2013 02/17/2008 *ADVANCE DIRECTIVE NOT ON FILE 10/06/2016 *DEPRESSION SCREENING, ANNUA Mihaela FOR PTS 18 AND OVER 10/06/2016 PNEUMOCOCCAL [...] Phone Address MEDICARE MEDICARE A AND B [id number] [place] of this encounter
--- OUTSIDE RECORDS SUMMARY | 2023-04-08 23:33 | External Medical Summary | Summary of Care ---
Author Name Unknown Organization [place] [address] Phone Care Team Providers Care Fire Sprinkler Designer Name Role Phone Unavailable Primary Care Provider Unavailabl e Reason for Visit * Reason Comments MEDICATION REFILL Encounter Details Date Type Department Care Team Description 04/30/2017 Refill Internal Medicine [address] [address] Ohs, Khadijah Sunshine RN [address] [place] [address] [place] [address] [phone] SOB (shortness of breath) Allergies No Known Allergiesas of this encounter Medications Prescription Sig. Disp. Refills Start Date End Date Status MEDICAL INSTRUCTIONSIndica tions:Severe chronic obstructive pulmonary disease (HCC),COPD exacerbation ([facility]) Nebulizer and tubing 1 Each 1 03/12/2017 Active albuterol sulfate (PROVENTIL) (2.5 MG/3ML) 0.083% nebulizer solutionIndication s:Severe chronic obstructive pulmonary disease (HCC),COPD exacerbation (HCC) Inhale 1 Vial via nebulizer every 4 hours as needed for Wheezing. 120 Vial 11 03/12/2017 Active azithromycin (ZITHROMAX) 500 MG TabletIndications: x 2 days Take 500 mg by mouth daily. Indications: x 2 days 04/29/2017 7 Active folic acid 1 MG Tablet Take 1 mg by mouth daily. 04/29/2017 Active THIAMINE (VITAMIN B-1) 100 MG Tablet Take 100 mg by mouth daily. 04/29/2017 Active PredniSONE (DELTASONE) 20 MG TabletIndications: 2 tabs daily x 2 d, 1 tab daily for 2 days and 1/2 tab daily for 2 then stop Take 20 mg by mouth daily. Indications: 2 tabs daily x 2 d, 1 tab daily for 2 days and 1/2 tab daily for 2 then stop 04/29/2017 7 Active albuterol (PROAIR HFA) 108 (90 BASE) MCG/ACT inhalerIndications :SOB (shortness of breath) Inhale 2 Puffs by mouth every 4 hours as needed for Shortness of Breath or Wheezing. 1 Inhaler 5 04/30/2017 Active fluticasone-salmet umberto (ADVAIR DISKUS) 250-50 MCG/DOSE inhalerIndications :SOB (shortness of breath) Inhale 1 Puff by mouth 2 times a day. 1 Disk Dosing Unit 5 04/30/2017 Active albuterol (PROAIR HFA) 108 (90 BASE) MCG/ACT inhalerIndications :SOB (shortness of breath) Inhale 2 Puffs by mouth every 4 hours as needed for Wheezing. 1 Inhaler 1 10/01/2016 7 Discontinued fluticasone-salmet umberto (ADVAIR DISKUS) 250-50 MCG/DOSE inhalerIndications :SOB (shortness of breath) Inhale 1 Puff by mouth 2 times a day. 1 Disk Dosing Unit 5 10/01/2016 7 Discontinued levofloxacin (LEVAQUIN) 500 MG Tablet Take 500 mg by mouth daily. 0 03/08/2017 7 Discontinued as of this encounter Active Problems Problem Noted Date Severe chronic obstructive pulmonary dis ease ([facility]) 10/28/2016 Overview: severe by ATS criteria. significant response after bronchodilator COPD exacerbation ([facility]) 10/16/2016 ADVANCE DIRECTIVE INFORMATION 02/01/2008 Overview: No, [...] Date Resolved Date Inflammation of sacroiliac joint ([facility]) 5 03/12/2017 as of this encounter Immunizations [...] Visit Internal Medicine Abram Owens MD [address] [place] [address] [place] MCCO[place] [phone] Health Maintenance Due Date Last Done Comments [...] Phone Address MEDICARE MEDICARE A AND B [id number] [place] of this encounter
--- OUTSIDE RECORDS SUMMARY | 2023-04-08 23:33 | External Medical Summary | Summary of Care ---
Author Name Unknown Organization [place] [address] Phone Care Team Providers Care Press Machine Operator Name Role Phone Abram Owens MD Primary Care Provider [phone] Encounter Details Date Type Department Care Team Description 05/19/2017 Orders Only Internal Medicine [address] [address] Abram Owens MD [address] [place] [address] [phone] Allergies No Known Allergiesas of this encounter [...] Noted Date Resolved Date COPD exacerbation ([facility]) 10/16/2016 05/03/20 17 Inflammation of sacroiliac joint ([facility]) 5 03/12/2017 Other abnormal glucose 04/23/2005 [...] Office Visit Internal Medicine Abram Owens MD [address] [place] [address] [place] M[place] [address] [phone] Pending Results Name Priority Associated Diagnoses Date/Ti me CHEMISTRY-OUTSIDE Routine 05/17/2017 12:00 AM EST Health Maintenance Due Date [...] Phone Address MEDICARE MEDICARE A AND B [id number] Medicare [place] as of this encounter
--- OUTSIDE RECORDS SUMMARY | 2023-04-08 23:33 | External Medical Summary | Summary of Care ---
Author Name Unknown Organization [place] [address] Phone Care Team Providers Care Voyage Management System Operator Name Role Phone Abram Owens MD Primary Care Provider [phone] Encounter Details Date Type Department Care Team Description 05/10/2017 Dye Stand LoaderChain Hooker Medicine [address] [address] Ohs, Khadijah Sunshine RN [address] [place] [phone] Severe chronic obstructive pulmonary disease (HCC)*;COPD exacerbation (HCC);SOB (shortness of breath) Allergies No Known [...] Date Severe chronic obstructive pulmonary dis ease ([facility] [...] Progress Notes * Khadijah Rehman RN - 05/10/2017 3:50 PM EST Week 2 call 1 [facility] for COPD exacerbation hospital stay. Daniel is wearing his 02 at all times and feels this improves his breathing. He says he isn't coughingmuch but every once in a while he brings up greenish colored mucus. Dr Owens noted that he didn'tthink this was infection and advised he see Dr Gill of pulmonary. Daniel did make an appointment and thinks it is 05-28-17. He denies that his breathing is any worse and feels pretty good. He is eating well and BM regular. Voiding well. He has been using the nebulizer and inhalers as directed. Advised if he feels more SOB, becomes more congested and coughing more to call me and we can have him seen right away. He agrees. CM will f/u in a couple days. Khadijah Rehman RN in this encounter Plan of Treatment Upcoming Encounters Date Type Specialty Care Team Description 10/27/2017 Office Visit Internal Medicine Abram Owens MD [address] [place] [address] [place] MCCOLLUM [phone] Health Maintenance Due Date Last Done Comments [...] Phone Address MEDICARE MEDICARE A AND B [id number] Medicare [place] as of this encounter
--- OUTSIDE RECORDS SUMMARY | 2023-04-08 23:33 | External Medical Summary | Summary of Care ---
Author Name Unknown Organization [place] [address] Phone Care Team Providers Care Offset Press Operator Helper Name Role Phone Unavailable Primary Care Provider Unavailabl e Encounter Details Date Type Department Care Team Description 04/30/2017 Faculty Criminal JusticeQuality Control Microbiologist Medicine [address] [address] OhsKhadijah RN [address] [place] [address] [place] [phone] Severe chronic obstructive pulmonary disease (HCC)*;COPD exacerbation [...] for 2 then stop 04/29/2017 7 Active oxygen GAS Use 2 L/min(Oxygen) as directed continuous. 04/28/2017 Active albuterol (PROAIR HFA) 108 (90 BASE) [...] significant response after bronchodilator COPD exacerbation ([facility]) 10/16/2016 ADVANCE DIRECTIVE INFORMATION [...] Resolved Date Inflammation of sacroiliac joint (HCC) 5 03/12/2017 as of this encounter Immunizations [...] Progress Notes * Khadijah Rehman RN - 04/30/2017 3:56 PM EST Case Management Assessment Is this call for a hospital, snf or rehab facility discharge to home? Yes [facility] with c/o increased SOB and cough productive for green mucus. His 02 sat in the ER was in the 80's on RA. 02 applied and his sat improved. He was treated with IV antibiotics and IVsteroids. His symptoms improved and he was discharged home 04-28-17. He now has home 02 and is wearing continuously at 2 LPM. S: Reports: Daniel reports that he is having some "tightness" in his chest beginning this afternoon. It is mid sternal. He denies any increased SOB or diaphoresis. CM advised ER evaluation as this is new pain per Daniel. He then said he would wait and see as after talking for a few minutes he reports thepain improved. He says he had an [place] for lunch and has been burping. Stressed that he should be checked and if this returns to call 911 to be safe. He says he will. He has his 02 on. He is using an Advair inhaler. Reports that he doesn't have prescription coverage and that his child is trying to get PACE for him. Message to Dr Owens as Advair may be quite expensive? His bowels are moving. He does feel much improved since discharge r/t his breathing. CM will send the COPD packet for him to review. He states he has not had any alcohol since discharge and feeling ok without it. O: Phone visit for CM [facility]LE[facility] for hospital stay for COPD. New on home 02.. Medications: takes all medications as prescribed. A: Patient Centered Prioritized Goals: Development of self - management action plan with patient/caregiver/ provider. Patient and caregiver demonstrate basic understanding of their disease process. Exacerbations have been prevented, minimized or reduced in severity. Co-morbid conditions identified and managed. Patient/ caregiver demonstrates adherence to treatment plan. Identified Barriers: Older than 70 years P: Faculty Criminal Justice Interventions: Reinforce Self Management Action Plan established at previous visit Reinforced "call back instructions" if weight fails to return to baseline, urine outputs decrease, symptoms increase Contacted managing provider Reinforced safety education / fall prevention Reinforced medication regimen - timing / dosing / purpose Discussed alternate medication therapy with provider / pharmacist Medication optimization with Provider COPD: Pt instructed [...] update plan of care, instructed to call Faculty Criminal Justice or Primary Care Provider with change in symptoms or as needed before next follow-up, verbalizes understanding and agrees with plan. Khadijah Rehman RN Outpatient Faculty Criminal Justice in this encounter Plan of Treatment Upcoming Encounters Date Type Specialty Care Team Description 05/03/2017 Office Visit Internal Medicine Abram Owens MD [address] [place] [address] [place] M[place]OLL[place] [address] [phone] Health Maintenance Due Date Last Done Comments [...] Phone Address MEDICARE MEDICARE A AND B [id number] Medicare [place] as of this encounter
--- OUTSIDE RECORDS SUMMARY | 2023-04-08 23:33 | External Medical Summary | Summary of Care ---
Author Name Unknown Organization [place] [address] Phone Care Team Providers Care Driver Education Instructor Name Role Phone Abram Owens MD Primary Care Provider [phone] Encounter Details Date Type Department Care Team Description 05/18/2017 Field Nurse Case ManagerBuffing Machine Operator Semiautomatic Medicine [address] [address] Ohs, Khadijah Sunshine RN [address] [place] [address] [phone] Severe chronic obstructive pulmonary disease (HCC)*;COPD exacerbation [...] Noted Date Resolved Date COPD exacerbation ([facility]) 10/16/2016 05/03/20 17 Inflammation of sacroiliac joint ([facility]) 5 03/12/2017 Other abnormal glucose 04/23/2005 7 [...] as of this encounter Progress Notes * OhsKhadijah RN - 05/18/2017 1:39 PM EST Daniel was seen at [facility] ER yesterday due to SOB. I was trying to get him in here to be seen due to increased SOB and productive cough for green to yellow mucus although when I called him back he was really SOB and having difficulty with conversation.n His transported him and he was given a 60 minute Albuterol treatment. Labs were done and unremarkable. CXR was done and showed "persistent L basilar opacity slightly increased from prior exam. ? Pneumonia or neoplasm?. The ER Dr spoke with Dr Gill of [facility] and Daniel will be seen on Wednesday- at 9:30 at pulm office. He said he had received a call earlier but lost the number they gave him to call back. I calledand spoke with Marlene and she gave me the date and time. Daniel did write this down so his knowsas well. He was put on Daliresp but pharmacy has to order. He will obtain it and start when they get it. Will f/u again on Wednesday after pulm appointment. Khadijah Rehman, RN in this encounter Plan of Treatment Upcoming Encounters Date Type Specialty Care Team Description 10/27/2017 Office Visit Internal Medicine Abram Owens MD [address] [place] [address] ABRAHAM MCCOLLUM [id number] [phone] Health Maintenance Due Date Last Done Comments COLONOSCOPY-EVERY 10 YRS AGE S 50-75 1992 LUNG CANCER SCREENING YEARLY -USE SMARTSET [id number] 1997 TETANUS EVERY 10 YEARS-TDAP (BOOSTRIX OR [...] Phone Address MEDICARE MEDICARE A AND B [id number] Medicare [place] as of this encounter
--- OUTSIDE RECORDS SUMMARY | 2023-04-08 23:33 | External Medical Summary ---
Author Name Unknown Address [facility] [place] [address] Phone Organization K01:[place] [address] [place] [id number] Laboratory Report Ordering Provider Test Date Status NICK QURESHI 10/01/2016 16:17:00 Final Observation Date Value Abnormality Reference Status BUN 10/01/2016 22:27 6 6-20 Fin al Creatinine 10/01/2016 22:27 0.8 0.6-1.2 Fi nal GFR should be used to assess renal function. Plasma/Serum creatinine may not be able to properly reflect renal function in some cases. Sodium 10/01/2016 22:27 133 Below low normal 135-14 6 Final Potassium 10/01/2016 22:27 4.5 3.5-5.1 Fin al Cl 10/01/2016 22:27 91 Below low normal 98-107 Final CO2 10/01/2016 22:27 28 22-32 Fin al Anion gap 10/01/2016 22:27 14 7-15 Fin al Glucose 10/01/2016 22:27 124 Above high normal 70-12 0 Final Calcium 10/01/2016 22:27 9.1 8.4-10.2 Fin al E Glom Filt Rate 10/01/2016 22:27 >60.0 >60 Final If patient is [place], multiply estimated GFR by 1.159. Performing Location [place] [address] [address] [facility] [address]
--- OUTSIDE RECORDS SUMMARY | 2023-04-08 23:33 | External Medical Summary | Summary of Care ---
Author Name Unknown Organization [place] [address] Phone Care Team Providers Care Vocational Evaluator Name Role Phone Abram Owens MD Primary Care Provider [phone] Reason for Visit * Reason Comments ADVICE Encounter Details Date Type Department Care Team Description 05/04/2017 Telephone Internal Medicine [address] [address] Ohs, Khadijah Sunshine RN [address] [place] [address] [place] [address] ADVICE Allergies No Known Allergiesas of this encounter Medications Prescription Sig. Disp. Refills Start Date End Date Status MEDICAL INSTRUCTIONSIndicat ions:Severe chronic obstructive pulmonary disease (HCC),COPD exacerbation ([facility]) Nebulizer and tubing 1 Each 1 [...] Phone Address MEDICARE MEDICARE A AND B [id number] [place] as of this encounter
== END 2023-03-27 14:32 | disposition home or self-care (01) | DRG 190 ==
LOC: ED 16:44 → SUATTDRO 19:15 → EDINP 19:15 → 2S 21:25

== ENCOUNTER 2023-09-23 12:51 | Inpatient (IN) ==
[2023-09-23] MEDS: ALBUT/IPRATROP 3MG/0.5MG NEB 3 ML VIAL NEB STA ×2 (13:12)
[2023-09-23 13:20] LABS: Base Excess VBG -3.3 mEq/L; HCO3 VBG 24 mmol/L; Oxygen Saturation VBG 87.3 %; PCO2 VBG 48 mmHg (38-50); PO2 VBG 56 mmHg
[2023-09-23 13:26] LABS: Basophils % (auto) 0.9 %; Eosinophils % (auto) 9.2 %; Hematocrit (blood only) 44.3 % (42.0-52.0); Hemoglobin 14.9 g/dl (14.0-18.0); Immature Granulocytes # (auto) 0.02 K/uL (0.01-0.20); Immature Granulocytes % (auto) 0.2 %; Lymphocytes % (auto) 42.3 %; Mean Corpuscular Hgb Conc 33.6 g/dL (32.0-36.0); Mean Corpuscular Volume 95.1 fL (80.0-100.0); Mean Platelet Volume 9.5 fL (9.4-12.4); Monocytes # (auto) 0.93 K/uL (0.11-0.59); Monocytes % (auto) 8.5 %; Neutrophils # (auto) 4.23 K/uL (1.40-6.50); Neutrophils % (auto) 38.9 %; Platelet Count 228 K/uL (130-400); RDW Coefficient of Variation 13.2 % (11.5-14.5); RDW Standard Deviation 46.7 fL (36.4-46.3); Red Blood Count 4.66 M/uL (4.70-6.10); White Blood Count 10.88 K/ul (4.8-10.8)
[2023-09-23 13:46] LABS: BUN Creatinine Ratio 10.6 (10-20); Calcium 9.5 mg/dl (8.6-10.3); Creatinine Clr Calc Pharmacy 45.3 ml/min; Est GFR (African American) 88.4 ml/min; Est GFR (Non-African American) 76.3 ml/min; Potassium 4.4 mmol/L (3.5-5.1)
--- NOTE | 2023-09-23 14:00 | XRay Report ---
SINGLE VIEW CHEST CLINICAL HISTORY: Dyspnea FINDINGS: 2 AP, portable, upright chest radiographs are compared to study dated 03/27/2023 and correl ated with chest CT dated 07/02/2022. The heart is enlarged noting atherosclerotic calcification of the thoracic aorta. The pulmonary vasculature is noncongested. Advanced emphysema and chronic interstiti al thickening is similar to previous. Airspace consolidation is seen at both lung bases, left greater than right. Small pleural effusions are suspected. No pneumothorax is seen. The skeletal structures are osteopenic. The bony thorax is grossly intact. IMPRESSION: 1. Cardiomegaly and emphysema without radiographic evidence of congestive failure. 2. Left greater than right bibasilar airspace consolidation. Correlate clinically for evidence of pne umonia/aspiration pneumonitis. Radiographic follow-up to resolution is recommend. 3. Suspect trace pleural effusions. ACT 112: Negative or not required by law. Electronically signed by: Drew Brooks M.D. 09/23/2023 1:59 PM
[2023-09-23] MEDS: PIPERACILLIN/TAZOBACTAM 4.5 GM/120 ML BAG IV ONE (14:44)
[2023-09-23] MEDS: methylPREDNISolone 40 MG in SYRINGE 0 ML IV ONE (15:27)
[2023-09-23] MEDS: MoRPHine SULFATE 2 MG/ML CARP IV STA (15:27)
[2023-09-23] MEDS: LORazepam 0.5 MG TAB SL STA (15:51)
--- NOTE | 2023-09-23 16:06 | History & Physical Report ---
Date of Service September 23, 2023 Assessment & Plan (1) Emphysematous COPD: (2) Hospice care patient: (3) Alcohol use: (4) Chronic respiratory failure with hypoxia, on home oxygen therapy: (5) Pneumonia: Plan This is an 82yo M with a PMH of advanced COPD on Hospice since last month who presents with more significant SOB and air hunger. 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 Correlate clinically for evidence of pneumonia/aspiration pneumonitis. Radiographic follow-up to resolution is recommend Continue antibiotics, steroids, supplemental O2 (2L NC O2 baseline) as appropriate for symptom management Scheduled Duonebs Roxanol PRN for air hunger, Ativan PRN for anxiety Recurrent R diff colitis Continue PO vancomycin Contact precautions Atrial fibrillation All medications have been discontinued by hospice last month Admitted to med/surg with in-patient hospice Patient seen in collaboration with Dr. Saab. Please see addendum. I spent a total of 75 minutes coordinating, documenting, and providing care for this patient excluding time spent in the performance of separately billed services. History of Present Illness Chief Complaint: SOB Primary Care Provider: GARRETT Kaiser This is an 82yo M with a PMH of advanced COPD on Hospice since last month who presents with more significant SOB and air hunger. [place] anxious at home and unable to get to his nebulizer. Has started on Hospice and most recent note indicates he was started on a Duoneb but Trelegy and Dailiresp have been discontinued. Recently discontinued all A fib meds and has continued taking oral Vanco for recurrent C diff. Family was concerned about worsening SOB and brought to ED for further evaluation. Had a discussion with [facility] who will evaluate the patient this evening under GIP. Allergies Allergy/AdvReac Type Severity Reaction Status Date / Time No Known Allergies Allergy Verified 09/23/23 15:04 Home Medications Medication Instructions Recorded Confirmed Type albuterol sulfate 90 mcg/actuation 2 puffs inhalation Q4H PRN 04/11/19 09/23/23 History breath activated powder inhaler shortness of breath or wheezing (ProAir RespiClick) folic acid 1 mg tablet 1 mg PO QAM 04/11/19 09/23/23 History acetaminophen 500 mg tablet 1,000 mg PO DIRECTED PRN Pain 09/27/21 09/23/23 History (Tylenol Extra Strength) multivitamin with minerals 1 tab PO DAILY 09/27/21 09/23/23 History omeprazole 40 mg capsule,delayed 40 mg PO DAILYBB 09/27/21 09/23/23 History release potassium chloride 20 mEq 20 meq PO DAILY 09/27/21 09/23/23 History tablet,extended release famotidine 20 mg tablet 20 mg PO BID Heartburn 06/20/22 09/23/23 History Saccharomyces boulardii 250 mg 250 mg PO DAILY 03/24/23 09/23/23 History capsule (Florastor) ferrous sulfate 325 mg (65 mg 325 mg PO DAILY 03/24/23 09/23/23 History iron) tablet vancomycin 125 mg capsule 125 mg PO DAILY 03/24/23 09/23/23 History guaifenesin 200 mg tablet 200 mg PO AMPM 09/23/23 09/23/23 History ipratropium 0.5 mg-albuterol 3 mg 3 ml inhalation Q4 PRN Shortness 09/23/23 09/23/23 History (2.5 mg base)/3 mL nebulization Of Breath Or Wheezing soln lorazepam 1 mg tablet 0.5 mg sublingual DIRECTED PRN 09/23/23 09/23/23 History .Restless/insomnia magnesium chloride 64 mg 64 mg PO DAILY 09/23/23 09/23/23 History (magnesium chloride) tablet,delayed release (Mag 64) morphine concentrate 100 mg/5 mL 5 mg sublingual .Q2HR PRN Pain 09/23/23 09/23/23 History (20 mg/mL) oral solution Past Med/Surg History Medical History Emphysematous COPD Secondary spontaneous pneumothorax Goals of care, counseling/discussion Chronic respiratory failure with hypoxia, on home oxygen therapy Multifocal pneumonia Pneumonia History of alcohol abuse Acute and chronic respiratory failure COPD exacerbation Hypomagnesemia Elevated troponin I level Oxygen dependent GERD with esophagitis Alcohol abuse History of tobacco use Chronic respiratory failure Fibrosis of lung Pulmonary hypertension On home oxygen therapy WEARS O2 AT 2L CONT. 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 Physical Exam Physical Exam: Please see Dr. Saab' addendum for physical exam. Results & Data Results & Data Vital Signs (Past 12 Hours) Vital Signs Temp Pulse Resp BP Pulse Ox O2 Del Method O2 Flow Rate 09/23/23 15:30 110 H 26 H 96 Nasal Cannula 2 09/23/23 15:00 112 H 33 H 94 09/23/23 15:00 186/141 H 09/23/23 15:00 186/141 H 09/23/23 14:30 107 H 24 97 09/23/23 14:00 114 H 35 H 94 09/23/23 14:00 155/89 H 09/23/23 13:50 117 H 35 H 97 Nasal Cannula 2 09/23/23 13:42 113 H 31 H 98 Nebulizer 09/23/23 13:42 151/96 H 09/23/23 13:40 116 H 27 H 99 09/23/23 13:30 115 H 34 H 99 09/23/23 13:20 109 H 31 H 99 09/23/23 13:10 118 H 30 H 94 09/23/23 13:10 94 Nasal Cannula 2 09/23/23 13:05 112 H 38 H 94 09/23/23 13:05 151/109 H 09/23/23 13:03 110 H 09/23/23 13:01 118 H 33 H 96 09/23/23 12:59 94 Nasal Cannula 2 09/23/23 12:59 Nasal Cannula 2 09/23/23 12:59 36.7 C 113 H 32 H 151/109 H 94 Nasal Cannula Laboratory Results Short CBC 09/23/23 Range/Units 13:06 WBC 10.88 H (4.8-10.8) K/ul Hgb 14.9 (14.0-18.0) g/dl Hct 44.3 (42.0-52.0) % Plt Count 228 (130-400) K/uL BMP 09/23/23 13:06 Sodium 140 Potassium 4.4 Chloride 106 Carbon Dioxide 24 BUN 10 Creatinine 0.94 Glucose 98 Calcium 9.5 Diagnostic Findings Chest X-Ray 09/23/23 13:06 SINGLE VIEW CHEST CLINICAL HISTORY: Dyspnea FINDINGS: 2 AP, portable, upright chest radiographs are compared to study dated 03/27/2023 and correlated with chest CT dated 07/02/2022. The heart is enlarged noting atherosclerotic calcification of the thoracic aorta. The pulmonary vasculature is noncongested. Advanced emphysema and chronic interstitial thickening is similar to previous. Airspace consolidation is seen at both lung bases, left greater than right. Small pleural effusions are suspected. No pneumothorax is seen. The skeletal structures are osteopenic. The bony thorax is grossly intact. IMPRESSION: 1. Cardiomegaly and emphysema without radiographic evidence of congestive failure. 2. Left greater than right bibasilar airspace consolidation. Correlate clinically for evidence of pneumonia/aspiration pneumonitis. Radiographic follow-up to resolution is recommend. 3. Suspect trace pleural effusions. ACT 112: Negative or not required by law. Electronically signed by: Drew Brooks M.D. 09/23/2023 1:59 PM Code Status & VTE Plan VTE Prophylaxis Plan VTE Prophylaxis will be ordered: No Reason for no VTE drug order: Contraindicated Supervising Physician Co-Signing Physician Notes I have seen and discussed the case with the collaborating advanced practitioner. I agree with the above H&P. I have reviewed and confirmed the patients medical history, the findings on physical examination, and the patients diagnosis and treatment plan with Roberto ALSTON and agree with the information documented. In short, Mr. Abreu is an 82-year-old gentleman with PMH end-stage COPD on hospice, chronic hypoxic respiratory failure on chronic 2.5 L oxygen, chronic anemia, GERD, alcohol use, history of recurrent C. difficile presented to ED due to poor symptom control with COPD on hospice. Patient reports wheezing and chest tightness for 2 days--he called for support, but wasn't feeling like he could tolerate roxinole or PO medications. Patient wishes to remain hospice, but fears to get home without good symptom control. GENERAL APPEARANCE: AxOx4, frail cachectic, mild distress HEENT: NC, AT. MMM. EOMI, clear conjunctiva, oropharynx clear, edentulous NECK: thin. No stiffness or restricted ROM. HEART: diminished 2/2 wheezing LUNGS: diffuse wheezing, conversational dyspnea ABDOMEN: Soft, nontender, nondistended with good bowel sounds heard. EXTREMITIES: Without cyanosis, clubbing or edema. NEUROLOGICAL: Grossly nonfocal. Alert and oriented, moving all 4 extremities. CN not formally tested but appear grossly intact. Skin: Warm and dry without any rash. : #Acute copd exacerbation #Endstage COPD #Hospice -Admit GIP for symptom management home inhalers and roflumilast discontinued given patient's presentation will continue steroids and antibiotics for symptom control Continue home roxinole and ativan Duonebs Hospice to eval for further recommendations #Chronic C. Diff contact precautions continue po vanc rest of plan as above I spent a total of 35 minutes coordinating, documenting, and providing care for this patient excluding time spent in the performance of separately billed services. All of the aforementioned completed outside of collaborating with the assigned advanced practitioner for a full treatment plan. I have reviewed the advanced practitioner's documentation, and I agree with, and take responsibility for the plan of care
[2023-09-23] MEDS ORDERED: AMPICILLIN SOD/SULBACTAM SOD 1,500 MG in SODIUM CHLOR 0.9% MINI-B 100 ML IV SCH (17:02)
[2023-09-23] MEDS ORDERED: POLYETHYLENE (MIRALAX) 17 GM PACK PO PRN (17:02)
[2023-09-23] MEDS ORDERED: LORazepam 0.5 MG TAB SL PRN (17:02)
[2023-09-23] MEDS ORDERED: ONDANSETRON INJ 2 MG/ML 2 ML VIAL IV PRN (17:02)
[2023-09-23] MEDS ORDERED: LORazepam 0.5 MG in SYRINGE 0.25 ML IV PRN (17:02)
[2023-09-23] MEDS: MoRPHine SULFATE 10 MG/0.5 ML UDP PO PRN (18:33)
--- NOTE | 2023-09-23 18:42 | Emergency Department Note ---
History of Present Illness General Chief Complaint: Shortness of Breath/Dyspnea Stated Complaint: CHEST PAIN, SOB Time Seen by Provider: 09/23/23 12:57 Source: patient and EMS History of Present Illness Provider Complaint: shortness of breath Onset (ago): day(s) (2) Severity: severe Consistency/Duration: + progressively worsening Maximum Pain Intensity: 8 Relieved By: + nothing Exacerbated By: + exertion and + coughing Known history of: COPD Associated symptoms: + cough, + wheezing, + sputum production and + chest congestion; no chest pain, no orthopnea, no hemoptysis, no nausea/vomiting or no abdominal pain Treatment prior to arrival: oxygen, bronchodilator (1 DuoNeb and 2 albuterol nebulizer treatments) and other (Solu-Medrol 125 mg) Related Data Home oxygen amount: 3 liters Home Medications Medication Instructions Recorded Confirmed Type albuterol sulfate 90 mcg/actuation 2 puffs inhalation Q4H PRN 04/11/19 09/23/23 History breath activated powder inhaler shortness of breath or wheezing (ProAir RespiClick) folic acid 1 mg tablet 1 mg PO QAM 04/11/19 09/23/23 History acetaminophen 500 mg tablet 1,000 mg PO DIRECTED PRN Pain 09/27/21 09/23/23 History (Tylenol Extra Strength) multivitamin with minerals 1 tab PO DAILY 09/27/21 09/23/23 History omeprazole 40 mg capsule,delayed 40 mg PO DAILYBB 09/27/21 09/23/23 History release potassium chloride 20 mEq 20 meq PO DAILY 09/27/21 09/23/23 History tablet,extended release famotidine 20 mg tablet 20 mg PO BID Heartburn 06/20/22 09/23/23 History Saccharomyces boulardii 250 mg 250 mg PO DAILY 03/24/23 09/23/23 History capsule (Florastor) ferrous sulfate 325 mg (65 mg 325 mg PO DAILY 03/24/23 09/23/23 History iron) tablet vancomycin 125 mg capsule 125 mg PO DAILY 03/24/23 09/23/23 History guaifenesin 200 mg tablet 200 mg PO AMPM 09/23/23 09/23/23 History ipratropium 0.5 mg-albuterol 3 mg 3 ml inhalation Q4 PRN Shortness 09/23/23 09/23/23 History (2.5 mg base)/3 mL nebulization Of Breath Or Wheezing soln lorazepam 1 mg tablet 0.5 mg sublingual DIRECTED PRN 09/23/23 09/23/23 History .Restless/insomnia magnesium chloride 64 mg 64 mg PO DAILY 09/23/23 09/23/23 History (magnesium chloride) tablet,delayed release (Mag 64) morphine concentrate 100 mg/5 mL 5 mg sublingual .Q2HR PRN Pain 09/23/23 09/23/23 History (20 mg/mL) oral solution Allergies Allergy/AdvReac Type Severity Reaction Status Date / Time No Known Allergies Allergy Verified 09/23/23 15:04 Past Med/Surg History Medical History Emphysematous COPD Secondary spontaneous pneumothorax Goals of care, counseling/discussion Chronic respiratory failure with hypoxia, on home oxygen therapy Multifocal pneumonia Pneumonia History of alcohol abuse Acute and chronic respiratory failure COPD exacerbation Hypomagnesemia Elevated troponin I level Oxygen dependent GERD with esophagitis Alcohol abuse History of tobacco use Chronic respiratory failure Fibrosis of lung Pulmonary hypertension On home oxygen therapy WEARS O2 AT 2L CONT. Chronic obstructive pulmonary disease Surgical History History of right cataract surgery History of tooth extraction Family History Mother Diverticulitis Father COPD (chronic obstructive pulmonary disease) Dad was a smoker Social History Smoking Status: Former smoker Tobacco Type: Cigarettes Second Hand Exposure: Yes; Do You Dip or Chew Tobacco: No; Tobacco Cessation Education Requested by Patient: No Hx Alcohol Use: Yes Alcohol type: beer and hard liquor Hx Substance Use: Yes Last Used Substance: Days (ago) Last Used Substance Other:: States "It's been a while" Preferred Language: Maldivian Communication Ability: Effective Registered Nurse Practitioner Required: No Beliefs That Will Affect Care: None marital status: Current Living Situation: Spouse Current Living Situation Comment: at home with Other Information That Helps Us Care for You: Yes (Uses [facility]) Feels Safe at Home: Yes Safety Concerns: Feels Safe At This Time Assistive Devices: Denture - Upper, Denture - Lower, Hospital Bed, Oxygen - Continuous and Walker Physical Exam 2 Vital Signs: Vital Signs - 24 hr 09/23/23 12:59 09/23/23 12:59 09/23/23 12:59 Temperature 36.7 C Temperature Source Oral Pulse Rate 113 H Pulse Rate from Sp O2 Sensor Respiratory Rate 32 H Respiratory Effort / Characteristics Labored Labored Blood Pressure 151/109 H Blood Pressure Nuris n 123 Pulse Oximetry 94 94 Oxygen Delivery Me thod Nasal Cannula Nasal Cannula Nasal Cannula Oxygen Flow Rate 2 2 Sepsis Recent Feve r Within 48 Hours No Sepsis New/Unexpla ined Change in Men etienne Status N/A Sepsis Action Take n by Nursing Physician Notified 09/23/23 13:01 09/23/23 13:03 09/23/23 13:05 Temperature Temperature Source Pulse Rate 118 H 110 H Pulse Rate from Sp O2 Sensor 102 H Respiratory Rate 33 H Respiratory Effort / Characteristics Blood Pressure 151/109 H Blood Pressure Nuris n 127 Pulse Oximetry 96 Oxygen Delivery Me thod Oxygen Flow Rate Sepsis Recent Feve r Within 48 Hours Sepsis New/Unexpla ined Change in Men etienne Status Sepsis Action Take n by Nursing 09/23/23 13:05 09/23/23 13:10 09/23/23 13:10 Temperature Temperature Source Pulse Rate 112 H 118 H Pulse Rate from Sp O2 Sensor 108 H 102 H Respiratory Rate 38 H 30 H Respiratory Effort / Characteristics Blood Pressure Blood Pressure Nuris n Pulse Oximetry 94 94 94 Oxygen Delivery Me thod Nasal Cannula Oxygen Flow Rate 2 Sepsis Recent Feve r Within 48 Hours Sepsis New/Unexpla ined Change in Men etienne Status Sepsis Action Take n by Nursing 09/23/23 13:20 09/23/23 13:30 09/23/23 13:40 Temperature Temperature Source Pulse Rate 109 H 115 H 116 H Pulse Rate from Sp O2 Sensor 106 H 103 H 116 H Respiratory Rate 31 H 34 H 27 H Respiratory Effort / Characteristics Blood Pressure Blood Pressure Nuris n Pulse Oximetry 99 99 99 Oxygen Delivery Me thod Oxygen Flow Rate Sepsis Recent Feve r Within 48 Hours Sepsis New/Unexpla ined Change in Men etienne Status Sepsis Action Take n by Nursing 09/23/23 13:42 09/23/23 13:42 09/23/23 13:50 Temperature Temperature Source Pulse Rate 113 H 117 H Pulse Rate from Sp O2 Sensor 109 H 110 H Respiratory Rate 31 H 35 H Respiratory Effort / Characteristics Blood Pressure 151/96 H Blood Pressure Nuris n 135 Pulse Oximetry 98 97 Oxygen Delivery Me thod Nebulizer Nasal Cannula Oxygen Flow Rate 2 Sepsis Recent Feve r Within 48 Hours Sepsis New/Unexpla ined Change in Men etienne Status Sepsis Action Take n by Nursing 09/23/23 14:00 09/23/23 14:00 09/23/23 14:30 Temperature Temperature Source Pulse Rate 114 H 107 H Pulse Rate from Sp O2 Sensor 107 H 105 H Respiratory Rate 35 H 24 Respiratory Effort / Characteristics Blood Pressure 155/89 H Blood Pressure Nuris n 118 Pulse Oximetry 94 97 Oxygen Delivery Me thod Oxygen Flow Rate Sepsis Recent Feve r Within 48 Hours Sepsis New/Unexpla ined Change in Men etienne Status Sepsis Action Take n by Nursing 09/23/23 15:00 09/23/23 15:00 09/23/23 15:00 Temperature Temperature Source Pulse Rate 112 H Pulse Rate from Sp O2 Sensor 106 H Respiratory Rate 33 H Respiratory Effort / Characteristics Blood Pressure 186/141 H 186/141 H Blood Pressure Nuris n 148 148 Pulse Oximetry 94 Oxygen Delivery Me thod Oxygen Flow Rate Sepsis Recent Feve r Within 48 Hours Sepsis New/Unexpla ined Change in Men etienne Status Sepsis Action Take n by Nursing Physical Exam: Physical Exam GENERAL: Ill-appearing cachectic HENT: Exam performed. - Head: Normocephalic and atraumatic. EYES: Conjunctivae and EOM are normal. Right eye exhibits no discharge. Left eye exhibits no discharge. No scleral icterus. NECK: Normal range of motion. Neck supple. No JVD present. CV: Tachycardic rate, regular rhythm, normal heart sounds and intact distal pulses. There is no peripheral edema. Palpable radial pulses bue. PULM/CHEST: Tachypneic. Bilateral expiratory wheezes. ABD: The abdomen is soft. There is no tenderness. NEURO: Motor and sensation grossly intact. SKIN: Skin is warm and dry. He is not diaphoretic. PSYCH: normal mood and affect. Behavior is normal. Judgment and thought content normal. Course Course 1257: The patient was evaluated in room A10. A complete history and physical exam was performed Cardiac monitoring: An order was placed for continuous cardiac monitoring. The monitor shows a rate of 100 with sinus rhythm interpreted by me 1425: Vital signs stable on supplemental home oxygen. Patient continues to wheeze despite multiple breathing treatments. Patient states that he does not feel comfortable going home and wants to be admitted for serial nebulizer treatments. Chest x-ray shows possible infiltrate Zosyn ordered for the patient. Patient be admitted to the [facility] hospitalist team. Administered Medications Morphine Sulfate (Morphine Sulfate 10 Mg/0.5 Ml Udp) 5 mg PO Q8 PRN PRN Reason: air hunger Stop: 10/07/23 17:01 Last Admin: 09/23/23 18:33 Dose: 5 mg Documented By: MRE Discontinued Medications Albuterol (Albut/Ipratrop 3mg/0.5mg Neb 3 Ml Vial) 3 ml NEB NOW STA; Protocol Stop: 09/23/23 13:04 Last Admin: 09/23/23 13:12 Dose: 3 ml Documented By: ACC Albuterol (Albut/Ipratrop 3mg/0.5mg Neb 3 Ml Vial) 3 ml NEB NOW STA; Protocol Stop: 09/23/23 13:07 Last Admin: 09/23/23 13:12 Dose: 3 ml Documented By: ACC Piperacillin Sod/Tazobactam Sod (Zosyn) 4.5 gm in 120 mls @ 240 mls/hr IV NOW ONE Stop: 09/23/23 15:03 Last Infusion: 09/23/23 15:23 Dose: Infused Documented By: Admin: 09/23/23 14:44 Dose: 240 mls/hr Documented By: ACC Methylprednisolone 40 mg/ (Syringe) 0.64 mls @ 1.5 mls/min IV NOW ONE Stop: 09/23/23 15:16 Last Admin: 09/23/23 15:27 Dose: 1.5 mls/min Documented By: ACC Lorazepam (Lorazepam 0.5 Mg Tab) 0.5 mg SL NOW STA Stop: 09/23/23 15:36 Last Admin: 09/23/23 15:51 Dose: 0.5 mg Documented By: ACC Morphine Sulfate (Morphine Sulfate 2 Mg/Ml Carp) 1 mg IV NOW STA Stop: 09/23/23 15:02 Last Admin: 09/23/23 15:27 Dose: 1 mg Documented By: ACC Medical Decision Making Laboratory Data Attestation: I reviewed the patient's lab results. 09/23/23 13:06 09/23/23 13:06 Lab Results 09/23/23 09/23/23 Range/Units 13:06 13:41 WBC 10.88 H (4.8-10.8) K/ul RBC 4.66 L (4.70-6.10) M/uL Hgb 14.9 (14.0-18.0) g/dl Hct 44.3 (42.0-52.0) % MCV 95.1 (80.0-100.0) fL MCH 32.0 (25.0-34.0) pg MCHC 33.6 (32.0-36.0) g/dL RDW Std Deviation 46.7 H (36.4-46.3) fL RDW Coeff of Julissa 13.2 (11.5-14.5) % Plt Count 228 (130-400) K/uL MPV 9.5 (9.4-12.4) fL Immature Gran % (Auto) 0.2 % Neut % (Auto) 38.9 % Lymph % (Auto) 42.3 % Mercer % (Auto) 8.5 % Eos % (Auto) 9.2 % Baso % (Auto) 0.9 % Neut # (Auto) 4.23 (1.40-6.50) K/uL Lymph # (Auto) 4.60 H (1.20-3.40) K/uL Mercer # (Auto) 0.93 H (0.11-0.59) K/uL Eos # (Auto) 1.00 H (0.00-0.50) K/uL Baso # (Auto) 0.10 (0.00-0.20) K/uL Immature Gran # (Auto) 0.02 (0.01-0.20) K/uL VBG pH 7.30 L (7.36-7.41) VBG pCO2 48 (38-50) mmHg VBG pO2 56 mmHg VBG HCO3 24 mmol/L VBG O2 Saturation 87.3 % VBG Base Excess -3.3 mEq/L Sodium 140 (136-145) mmol/L Potassium 4.4 (3.5-5.1) mmol/L Chloride 106 (98-107) mmol/L Carbon Dioxide 24 (21-32) mmol/L Anion Gap 10 (3-11) BUN 10 (6-23) mg/dl Creatinine 0.94 (0.6-1.4) mg/dl Est Cr Clr Drug Dosing 45.3 ml/min Est GFR ( Amer) 88.4 ml/min Est GFR (Non-Af Amer) 76.3 ml/min BUN/Creatinine Ratio 10.6 (10-20) Glucose 98 (70-99(Fasting)) mg/dl Calcium 9.5 (8.6-10.3) mg/dl SARS-CoV-2, RNA, NAAT NEGATIVE (NEGATIVE) Imaging Data Attestation: I personally reviewed and interpreted this imaging study as follows: My Impression: Chest x-ray: Emphysematous changes no pneumothorax. Radiologist's Impression: Chest X-Ray 09/23/23 13:06 SINGLE VIEW CHEST CLINICAL HISTORY: Dyspnea FINDINGS: 2 AP, portable, upright chest radiographs are compared to study dated 03/27/2023 and correlated with chest CT dated 07/02/2022. The heart is enlarged noting atherosclerotic calcification of the thoracic aorta. The pulmonary vasculature is noncongested. Advanced emphysema and chronic interstitial thickening is similar to previous. Airspace consolidation is seen at both lung bases, left greater than right. Small pleural effusions are suspected. No pneumothorax is seen. The skeletal structures are osteopenic. The bony thorax is grossly intact. IMPRESSION: 1. Cardiomegaly and emphysema without radiographic evidence of congestive failure. 2. Left greater than right bibasilar airspace consolidation. Correlate clinically for evidence of pneumonia/aspiration pneumonitis. Radiographic follow-up to resolution is recommend. 3. Suspect trace pleural effusions. ACT 112: Negative or not required by law. Electronically signed by: Drew Brooks M.D. 09/23/2023 1:59 PM ECG Data Attestation: I personally reviewed and interpreted this ECG as follows: Interpretation: Sinus arrhythmia with a rate of 114. CO 160 QRS [address] elevation or ST depression MDM Narrative 1257: The patient was evaluated in room A10. A complete history and physical exam was performed Cardiac monitoring: An order was placed for continuous cardiac monitoring. The monitor shows a rate of 100 with sinus rhythm interpreted by me 1425: Vital signs stable on supplemental home oxygen. Patient continues to wheeze despite multiple breathing treatments. Patient states that he does not feel comfortable going home and wants to be admitted for serial nebulizer treatments. Chest x-ray shows possible infiltrate Zosyn ordered for the patient. Patient be admitted to the [facility]ist team. Impression & Plan COPD exacerbation Discharge Plan Visit Data Chief Complaint: Shortness of Breath/Dyspnea Stated Complaint: CHEST PAIN, SOB ED Provider: Javier Tello Discharge Problem: COPD exacerbation Patient Disposition: Admitted As Inpatient Discharge Instructions Interventions: ED Discharge Assessment Last Done: 09/23/23 16:32
[2023-09-23] MEDS: ALBUT/IPRATROP 3MG/0.5MG NEB 3 ML VIAL NEB SCH (19:51)
[2023-09-23] MEDS: AMPICILLIN/SULBACTAM SOD 3,000 MG in SODIUM CHLOR 0.9% MINI-B 100 ML IV SCH (20:14)
[2023-09-23] MEDS ORDERED: ALBUTEROL HFA 8 GM INHALER INH PRN (21:19)
[2023-09-23] MEDS: guaiFENesin 200 MG TAB PO SCH (23:37)
[2023-09-24] MEDS ORDERED: LEVALBUTEROL 1.25 MG/3 ML NEB NEB PRN (01:10)
[2023-09-24] MEDS ORDERED: IPRATROPIUM BROMIDE NEB SOLN 0.02% 0.5MG/2.5ML VIAL INH PRN (01:10)
--- OUTSIDE RECORDS SUMMARY | 2023-09-24 08:44 | External Medical Summary | Summary of Care ---
Author Name Unknown Organization [facility] Address [address] [place] [address] Phone [phone] Care Team Providers Care Resident Programs Assistant Name Role Phone Kavya Dillard Primary Care Provider Reason for Visit * Reason Comments Re-Check Encounter Details Date Type Department Care Team (Latest Contact Info) Description 08/24/2023 3:00 PM EDT Office Visit Family Practice [facility] [address] [place] [address] Kavya Dillard CRNP [address] [facility] [place] [address] Hospice care patient*; Chronic respiratory failure with hypoxia, on home O2 therapy (HCC); COPD, group D, by GOLD 2017 classification (HCC); Persistent atrial fibrillation (HCC); Recurrent colitis due to Clostridioides difficile; Severe protein-calorie malnutrition (HCC); Pulmonary HTN (HCC) Allergies No known active allergiesdocumented as of this encounter (statuses as of 08/24/2023) Medications Medication Sig Dispensed Refills Start Date End Date Status acetaminophen (TYLENOL) 500 MG Tablet Take 1 Tablet by mouth every 4 hours as needed for Pain. 0 8 Active Multiple Vitamins-Minerals (MULTIVITAMIN ADULTS) TABS Take by mouth daily. 0 Active oxygen IN GASIndications:Inc to 4LPM with ambulation/exertio n 2.5 lpm at rest 3 LPM continuous oxygen with exertion DME: [facility] Indications: Inc to 4LPM with ambulation/exe rtion 1 Each 0 1 Active Saccharomyces boulardii 250 MG Oral Capsule (Florastor) Take 1 Capsule by mouth in the morning. Florastor . 0 Active guaiFENesin 200 MG Oral Tablet TAKE 1 TABLET BY MOUTH EVERY 6 HOURS NEEDED FOR CONGESTION FOR 4 DAYS 0 3 Active Potassium Chloride ER 20 MEQ Oral Tablet Extended Release TAKE 1 TABLET BY MOUTH EVERY DAY IN THE MORNING 90 Tablet 3 3 Active Ferrous Sulfate 325 (65 Fe) MG Oral Tablet (Feosol) Take 1 Tablet by mouth in the morning and 1 Tablet before bedtime. 60 Tablet 6 3 Active Magnesium Chloride 64 MG Oral Tablet Delayed Release (Mag-64) Take 1 Tablet by mouth in the morning. 180 Tablet 1 3 Active Folic Acid 1 MG Oral TabletIndications: Chronic respiratory failure with hypoxia, on home O2 therapy ([facility]) TAKE 1 TABLET BY MOUTH IN THE MORNING 90 Tablet 1 3 Active Omeprazole 40 MG Oral Capsule Delayed Release (PriLOSEC) TAKE 1 CAPSULE BY MOUTH EVERY DAY 1 HOUR BEFORE THE FIRST MEAL OF THE DAY 90 Capsule 1 3 Active Famotidine 20 MG Oral Tablet (Pepcid) TAKE BY MOUTH 1 TABLET NEEDED BEFORE BEDTIME FOR HEARTBURN. 90 Tablet 3 3 Active Ventolin HFA 108 (90 Base) MCG/ACT Inhalation Aerosol SolutionIndication s:COPD, group D, by GOLD 2017 classification ([facility]) Inhale 2 Puffs by mouth every 4 hours as needed for Wheezing. Brand necessary 54 g 3 3 Active Thiamine HCl 100 MG Oral Tablet (vitamin B-1) TAKE 1 TABLET BY MOUTH EVERY DAY 90 Tablet 3 4 Active Levalbuterol HCl 1.25 MG/3ML Inhalation Nebulization Solution (Xopenex)Indicatio ns:Chronic obstructive pulmonary disease, unspecified ([facility]) INHALE 1 AMPULE VIA NEBULIZER 3 TIMES A DAY. 810 mL 1 4 Active Vancomycin HCl 125 MG Oral Capsule (Vancocin) Take one capsule four times a day for 10 days, then once capsule twice a day for 7 days, then one daily until otherwise directed. 120 Capsule 3 4 Active Vitamin B-12 100 MCG Oral Tablet (vitamin B-12) TAKE 1 TABLET BY MOUTH EVERY DAY 90 Tablet 3 4 Active guaiFENesin ER 1200 MG Oral Tablet Extended Release 12 Hour Take 1 Tablet by mouth in the morning and 1 Tablet before bedtime. 60 Tablet 3 4 Active Ipratropium [place] 0.02 % Inhalation Solution (Atrovent)Indicati ons:Stage 3 severe COPD by GOLD classification ([facility]) Inhale 2.5 mL via nebulizer in the morning and 2.5 mL at noon and 2.5 mL before bedtime. 270 mL 2 4 Active Roflumilast 500 MCG Oral Tablet (Daliresp) Take 1 Tablet by mouth in the morning. 180 Tablet 4 3 08/24/19 24 Discontinued predniSONE 10 MG Oral Tablet (Deltasone) Take 5 tabs for 2 days, 4 tabs for 2 days, 3 tabs for 2 days, 2 tabs for 2 days 1 tab for 2 days 30 Tablet 0 4 08/24/19 24 Discontinued(Me dication List Clean Up) Trelegy Ellipta 100-62.5-25 MCG/ACT Aerosol Powder Breath Activated (Fluticasone-Umecl idinium-Vilanterol ) INHALE 1 PUFF BY MOUTH IN THE MORNING 60 Each 5 4 08/24/19 24 Discontinued predniSONE 20 MG Oral Tablet (Deltasone) Take 1 Tablet by mouth daily for 5 days, THEN 0.5 Tablets daily for 5 days. 8 Tablet 0 4 08/24/19 24 Discontinued(Me dication List Clean Up) Vancomycin HCl 125 MG Oral Capsule (Vancocin) 1 CAP DAILY UNTIL FECAL TRANSPLANT. 90 Capsule 1 4 08/24/19 24 Discontinued(Me dication List Clean Up) documented as of this encounter (statuses as of 08/24/2023) Active Problems Problem Noted Date Diagnosed Date Hospice care patient 08/24/2023 Severe protein-calorie malnutrition 07/17/2022 Persistent atrial fibrillation [...] as of this encounter (statuses as of 08/24/2023) Resolved Problems Problem Noted Date Diagnosed Date Resolved Date COPD exacerbation 05/20/2023 08/24/2023 History of Pseudomonas pneumonia 09/23/2020 12/09/2021 Severe [...] as of this encounter (statuses as of 08/24/2023) Immunizations Name Administration Dates Next Due COVID-19 mRNA, LNP-s, No Pre serve, 2-Dose Series (Moderna) 01/24/2021,10/07/2020 Pneumococcal Conjugate Vacc, 13 Valent (Prevnar) 10/20/2017 Pneumococcal Polysaccharide PPV23 (Pneumovax) Seasonal Influenza Virus Vac cine, Unspecified Formulation 06/26/2022 Seasonal Influenza, PF, 6 M & above, IM , (FluLaval or Fluzone) 02/28/2018,03/12/2017 Seasonal Influenza, Quadrivalent Hd (Fluzone Hd) 04/01/2023 Seasonal Influenza, Split, IIV3, With Preserve, Inj 03/12/2009,04/24/2006 Seasonal Influenza, Trivalent, Adjuvanted, 65+ y rs 04/12/2019 TDAP (age 10 and older)(Boostrix) 10/20/2017 Zoster Vaccine Recombinant (Shingrix) 02/08/2021 ,07/27/2020 documented as of this encounter Social History Tobacco Use Types Packs/Day Years Used Date Smoking Tobacco: Former Cigarettes 2 59.4 0 1956 - 04/07/2016 Smokeless Tobacco: Never [...] the money to buy more. Never true 09/11/19 23 Within the past 12 months, t he food you bought just didn't last and you didn't have money to get more. Never true 09/10/2022 Sex and Gender Information Value Date Recorded Sex Assigned at Not on file Gender Identity Not on file Sexual Orientation Not on file Job Start Date Occupation Industry Not on file Not on file Not on file documented as of this encounter Last Filed Vital Signs Vital Sign Reading Time Taken Comments Blood Pressure 118/60 08/24/2023 2:45 PM EDT Pulse 112 08/24/2023 2:45 PM EDT Temperature - - Respiratory Rate - - Oxygen Saturation 92% 08/24/2023 2:45 PM EDT Inhaled Oxygen Concentration - - Weight 56 kg (123 lb 9 oz) 08/24/2023 2:45 PM ED T Height - - Body Mass Index 19.94 05/20/2023 3:22 PM EST documented in this encounter Progress Notes * Kavya Dillard, GARRETT - 08/24/2023 3:17 PM EDT Follow up Family Medicine Visit CC: Chief Complaint Patient presents with Re-Check History of Present Illness: Jer Abreu Jr. is a 82 year old male presenting today for follow up. He enrolled in hospice care. He has stopped trelegy and Daliresp. Started duoneb. Right eye with seeing lines. Sometimes with blurred vision. Denies pain. He declines optho appt fornow and just wants to watch. Overall feeling stable. Social History Socioeconomic History Marital status: Spouse name: Not on file Number of children: 6 Years of education: Not on file Highest education level: Not on file Occupational History Not on file Tobacco Use Smoking status: Former Current packs/day: 0.00 Average packs/day: 2.0 packs/day for 59.4 years (118.7 ttl pk-yrs) Types: Cigarettes Start date: 1954 Quit date: 04/07/2016 Years since quittin.3 Smokeless tobacco: Never Tobacco comments: started age [...] on file Food Insecurity: No Food Insecurity (09/10/2022) Hunger Vital Sign Worried About Running Out [...] ([facility]) 04/23/2017 [facility] Arthritis Edentulous Gastroesophageal reflux disease with esophagitis [...] CATARACT, INSERT LENS PROSTH Right 06/12/2019 [facility] REMOVE CATARACT, INSERT LENS PROSTH Left 06/26/2019 [facility] Outpatient Medications Marked as Taking for the 08/24/23 encounter (Office Visit) with Kavya iDllard CRNP Medication Sig [DISCONTINUED] Vancomycin HCl 125 MG Oral Capsule (Vancocin) 1 CAP DAILY UNTIL FECAL TRANSPLANT. Ipratropium [place] 0.02 % Inhalation Solution (Atrovent) Inhale 2.5 mL via nebulizer in the morning and 2.5 mL at noon and 2.5 mL before bedtime. guaiFENesin ER 1200 MG Oral Tablet Extended Release 12 Hour Take 1 Tablet by mouth in the morning and 1 Tablet before bedtime. [DISCONTINUED] predniSONE 20 MG Oral Tablet (Deltasone) Take 1 Tablet by mouth daily for 5 days, THEN 0.5 Tablets daily for 5 days. Trelegy Ellipta 100-62.5-25 MCG/ACT Aerosol Powder Breath Activated (Notgkngsosh-Eiefdihogjom-Iezzhacexg) INHALE 1 PUFF BY MOUTH IN THE MORNING (Patient not taking: Reported on 08/24/2023) Vitamin B-12 100 MCG Oral Tablet (vitamin B-12) TAKE 1 TABLET BY MOUTH EVERY DAY Vancomycin HCl 125 MG Oral Capsule (Vancocin) Take one capsule four times a day for 10 days, then once capsule twice a day for 7 days, then one daily until otherwise directed. [DISCONTINUED] predniSONE 10 MG Oral Tablet (Deltasone) Take 5 tabs for 2 days, 4 tabs for 2 days, 3 tabs for 2 days, 2 tabs for 2 days 1 tab for 2 days Levalbuterol HCl 1.25 MG/3ML Inhalation Nebulization Solution (Xopenex) INHALE 1 AMPULE VIA NEBULIZER 3 TIMES A DAY. Thiamine HCl 100 MG Oral Tablet (vitamin B-1) TAKE 1 TABLET BY MOUTH EVERY DAY Roflumilast 500 MCG Oral Tablet (Daliresp) Take 1 Tablet by mouth in the morning. (Patient not taking: Reported on 08/24/2023) Ventolin HFA 108 (90 Base) MCG/ACT Inhalation Aerosol Solution Inhale 2 Puffs by mouth every 4 hours as needed for Wheezing. Brand necessary Famotidine 20 MG Oral Tablet (Pepcid) TAKE BY MOUTH 1 TABLET NEEDED BEFORE BEDTIME FOR HEARTBURN. Folic Acid 1 MG Oral Tablet TAKE 1 TABLET BY MOUTH IN THE MORNING Omeprazole 40 MG Oral Capsule Delayed Release (PriLOSEC) TAKE 1 CAPSULE BY MOUTH EVERY DAY 1 HOUR BEFORE THE FIRST MEAL OF THE DAY Magnesium Chloride 64 MG Oral Tablet Delayed Release (Mag-64) Take 1 Tablet by mouth in the morning. Ferrous Sulfate 325 (65 Fe) MG Oral Tablet (Feosol) Take 1 Tablet by mouth in the morning and 1 Tablet before bedtime. Potassium Chloride ER 20 MEQ Oral Tablet Extended Release TAKE 1 TABLET BY MOUTH EVERY DAY IN THE MORNING Saccharomyces boulardii 250 MG Oral Capsule (Florastor) Take 1 Capsule by mouth in the morning. Florastor . oxygen IN GAS 2.5 lpm at rest 3 LPM continuous oxygen with exertion DME: [facility] Indications: Inc to 4LPM with ambulation/exertion acetaminophen (TYLENOL) 500 MG Tablet Take 1 Tablet by mouth every 4 hours as needed for Pain. Multiple Vitamins-Minerals (MULTIVITAMIN ADULTS) TABS Take by mouth daily. Review of patient's allergies indicates: No Known Allergies Most Recent Immunizations Administered Date(s) Administered COVID-19 mRNA, LNP-s, No Preserve, 2-Dose Series (Moderna) 01/24/2021 PPD 04/22/2005 Pneumococcal Conjugate Vacc, 13 Valent (Prevnar) 10/20/2017 Pneumococcal Polysaccharide PPV23 (Pneumovax) 04/27/2017 Seasonal Influenza Virus Vaccine, Unspecified Formulation 06/26/2022 Seasonal Influenza, PF, 6 M & above, IM , (FluLaval or Fluzone) 02/28/2018 Seasonal Influenza, Quadrivalent Hd (Fluzone Hd) 04/01/2023 Seasonal Influenza, Split, IIV3, With Preserve, Inj 03/12/2009 Seasonal Influenza, Trivalent, Adjuvanted, 65+ yrs 04/12/2019 TDAP (age 10 and older)(Boostrix) 10/20/2017 Zoster Vaccine Recombinant (Shingrix) 02/08/2021 Review of Systems: Review of Systems Constitutional: Positive for fatigue. Negative for chills, diaphoresis and fever. Respiratory: Positive for cough, shortness of breath and wheezing. Cardiovascular: Negative for chest pain, palpitations and leg swelling. Gastrointestinal: Positive for diarrhea. Negative for abdominal pain. Neurological: Negative for dizziness and syncope. Physical Exam: BP 118/60 | Pulse 112 | Wt 56 kg (123 lb 9 oz) | SpO2 92% | BMI 19.94 kg/m | BSA 1.61 m Physical Exam HENT: Head: Normocephalic. Cardiovascular: Rate and Rhythm: Tachycardia present. Pulmonary: Effort: Pulmonary effort is normal. Breath sounds: Decreased breath sounds present. Abdominal: Palpations: Abdomen is soft. Tenderness: There is generalized abdominal tenderness. Neurological: Mental Status: He is alert and oriented to person, place, and time. Psychiatric: Mood and Affect: Mood normal. Speech: Speech normal. Behavior: Behavior normal. Behavior is cooperative. Thought Content: Thought content normal. Cognition and Memory: Cognition normal. Judgment: Judgment normal. Assessment and Plan: 1. Hospice care patient He has POLST He is at peace with his decision Enrolled in hospice care starting yesterday Stopping trelegy and daliresp 2. Chronic respiratory failure with hypoxia, on home O2 therapy (HCC) ON 2.5 lpm 3. COPD, group D, by GOLD 2017 classification (HCC) Stable Starting duoneb 4. Persistent atrial fibrillation (HCC) Off of all meds Rate is 112 today 5. Recurrent colitis due to Clostridioides difficile On vancomycin 6. Severe protein-calorie malnutrition (HCC) Weight stable I have advised the patient to call our office incase of any worsening or new symptoms. I spent a total of 40-54 minutes (exact time 40 mins) on the date of service in preparation, delivery, and documentation of the care provided to Jer Abreu excluding any time spent in the performance of separately billed services. Randy, MSN, GARRETT [facility] documented in this encounter Plan of Treatment Upcoming Encounters Date Type Department Care Team (Late st Contact Info) Description 09/22/2023 2:[address] [facility] [address] [place] [address] Taylor Schwartz PA-C [address] [place] [address] Kristi Viveros, Community Health Drill Runner [address] [place] [address] Health Maintenance Due Date Last Done Comments *ADVANCE DIRECTIVE NOT ON FILE 09/25/2020 Depression Screening 11/12/2020 11/13/2019 COVID-19 Vaccine (3 - 2022-2 4 season) 2023 01/24/2021, 10/07/2020 O2 ASSESSMENT COMPLETED IN P AST YEAR FOR COPD 08/23/2024 08/24/2023 Zoster Vaccines Completed 02/08/2021, 07/27/2020 Influenza Vaccine (FLU shot) Completed , 06/26/2022, 04/12/2019, Additional history exists documented as of this encounter Medical Devices Not on filedocumented as of this encounter Visit Diagnoses Diagnosis Hospice care patient- Primary Encounter for palliative care Chronic respiratory failure with hypoxia, on home O2 therapy (HCC) COPD, group D, by GOLD 2017 classification (HCC) Persistent atrial fibrillation (HCC) Atrial fibrillation Recurrent colitis due to Clostridioides difficile Severe protein-calorie malnutrition (HCC) Other severe protein-calorie malnutrition Pulmonary HTN (HCC) Other chronic pulmonary heart diseases documented in this encounter Care Teams Resident Programs Assistant Relationship Specialty Start Date End Date Kavya Dillard CRNP [address] [place] [address] PCP - General Nurse Practitioner 12/31/20 documented as of this encounter"
--- OUTSIDE RECORDS SUMMARY | 2023-09-24 08:44 | External Medical Summary | Summary of Care ---
Author Name Unknown Organization [facility] Address [address] [place] [address] Phone [phone] Care Team Providers Care Route Sales Representative Name Role Phone Kavya Dillard Primary Care Provider Reason for Visit * Reason Comments eRx-Medication Refill Encounter Details Date Type Department Care Team (Late st Contact Info) Description 08/23/2023 Refill [facility]astroenterology[facility] [address] [place] [address] Kavya Dillard CRNP [address] [place] [address] Allergies No known active allergiesdocumented as of [...] CONGESTION FOR 4 DAYS 0 06/26/2022 Active Potassium Chloride ER 20 MEQ Oral Tablet Extended Release TAKE 1 TABLET BY MOUTH EVERY DAY IN THE MORNING 90 Tablet 3 09/22/2022 Active Ferrous Sulfate 325 (65 Fe) MG Oral Tablet (Feosol) Take 1 Tablet by mouth in the morning and 1 Tablet before bedtime. 60 Tablet 6 03/09/2023 Active Magnesium Chloride 64 MG Oral Tablet Delayed Release (Mag-64) Take 1 Tablet by mouth in the morning. 180 Tablet 1 04/14/2023 Active Folic Acid 1 MG Oral TabletIndications:Ch ronic respiratory failure with hypoxia, on home O2 therapy ([facility]) TAKE 1 TABLET BY MOUTH IN THE MORNING 90 Tablet 1 04/22/2023 Active Omeprazole 40 MG Oral Capsule Delayed Release (PriLOSEC) TAKE 1 CAPSULE BY MOUTH EVERY DAY 1 HOUR BEFORE THE FIRST MEAL OF THE DAY 90 Capsule 1 04/22/2023 Active Famotidine 20 MG Oral Tablet (Pepcid) TAKE BY MOUTH 1 TABLET NEEDED BEFORE BEDTIME FOR HEARTBURN. 90 Tablet 3 05/16/2023 Active Roflumilast 500 MCG Oral Tablet (Daliresp) Take 1 Tablet by mouth in the morning. 180 Tablet 4 05/20/2023 Active Ventolin HFA 108 (90 Base) MCG/ACT Inhalation Aerosol SolutionIndications: COPD, group D, by GOLD 2017 classification ([facility]) Inhale 2 Puffs by mouth every 4 hours as needed for Wheezing. Brand necessary 54 g 3 05/20/2023 Active Thiamine HCl 100 MG Oral Tablet (vitamin B-1) TAKE 1 TABLET BY MOUTH EVERY DAY 90 Tablet 3 06/08/2023 Active Levalbuterol HCl 1.25 MG/3ML Inhalation Nebulization Solution (Xopenex)Indications :Chronic obstructive pulmonary disease, unspecified ([facility]) INHALE 1 AMPULE VIA NEBULIZER 3 TIMES A DAY. 810 mL 1 06/08/2023 Active predniSONE 10 MG Oral Tablet (Deltasone) Take 5 tabs for 2 days, 4 tabs for 2 days, 3 tabs for 2 days, 2 tabs for 2 days 1 tab for 2 days 30 Tablet 0 07/06/2023 Active Vancomycin HCl 125 MG Oral Capsule (Vancocin) Take one capsule four times a day for 10 days, then once capsule twice a day for 7 days, then one daily until otherwise directed. 120 Capsule 3 07/16/2023 Active Vitamin B-12 100 MCG Oral Tablet (vitamin B-12) TAKE 1 TABLET BY MOUTH EVERY DAY 90 Tablet 3 07/29/2023 Active Trelegy Ellipta 100-62.5-25 MCG/ACT Aerosol Powder Breath Activated (Fluticasone-Umeclid inium-Vilanterol) INHALE 1 PUFF BY MOUTH IN THE MORNING 60 Each 5 08/13/2023 Active predniSONE 20 MG Oral Tablet (Deltasone) Take 1 Tablet by mouth daily for 5 days, THEN 0.5 Tablets daily for 5 days. 8 Tablet 0 08/16/2023 Active guaiFENesin ER 1200 MG Oral Tablet Extended Release 12 Hour Take 1 Tablet by mouth in the morning and 1 Tablet before bedtime. 60 Tablet 3 08/16/2023 Active Ipratropium [place] 0.02 % Inhalation Solution (Atrovent)Indication s:Stage 3 severe COPD by GOLD classification ([facility]) Inhale 2.5 mL via nebulizer in the morning and 2.5 mL at noon and 2.5 mL before bedtime. 270 mL 2 08/18/2023 Active Vancomycin HCl 125 MG Oral Capsule (Vancocin) 1 CAP DAILY UNTIL FECAL TRANSPLANT. 90 Capsule 1 08/23/2023 Active documented as of this encounter (statuses as of 08/24/2023) Active Problems Problem Noted Date Diagnosed Date COPD exacerbation 05/20/2023 Severe protein-calorie malnutrition 07/17/2022 Persistent atrial fibrillation [...] encounter Miscellaneous Notes * Telephone Encounter - Adilene Turner [facility] - 08/24/2023 12:49 PM EDT Refused Prescriptions: Disp Refills Vancomycin HCl 125 MG Oral Capsule (Vancoc*90 Cap*1 Sig: TAKE 1CAPSULE BY MOUTH DAILY UNTIL FECAL TRANSPLANT.Refused By: ADILENE TURNERReason for Refusal: Request already responded to by other means documented in this encounter Plan of Treatment Upcoming Encounters Date Type Department Care Team (Late st Contact Info) Description 08/24/2023 3:00 PM EDT Office Visit Family [address] [place] [address] Kavya Dillard CRNP [address] [place] [address] 09/22/2023 2:30 PM EDT Telemedicine [facility] [place] [address] [place] [address] Taylor Schwartz PA-C [address] [place] [address] Kristi Viveros, Community Health Biology Specialist [address] [place] [address] Health Maintenance Due Date Last Done Comments Alpha-1 Antitrypsin 1958 *ADVANCE DIRECTIVE NOT ON FILE 09/25/2020 Depression Screening 11/12/2020 11/13/2019 COVID-19 Vaccine ( season) 2023 01/24/2021, 10/07/2020 O2 ASSESSMENT COMPLETED IN PAST YEAR FOR COPD 06/23/2024 06/23/2023 DTaP,Tdap,and Td Vaccines (2 - Td or Tdap) 10/21/2027 10/20/2017 LUNG CANCER SCREENING - USE SMARTSET [id number] Completed 06/23/2017 Pneumococcal Vaccine: 65+ Years Completed 10/20/2017, 04/27/2017 Zoster Vaccines Completed 02/08/2021, 07/27/2020 Influenza Vaccine (FLU shot) Completed , 06/26/2022, 04/12/2019, Additional history exists GARDASIL-HPV IMMUNIZATION SERIES [...] filedocumented as of this encounter Care Teams Route Sales Representative Relationship Specialty Start Date End Date Kavya Dillard CRNP [address] [place] [address] PCP - General Nurse Practitioner 12/31/20 documented as of this encounter
--- OUTSIDE RECORDS SUMMARY | 2023-09-24 08:44 | External Medical Summary | Summary of Care ---
Author Name Unknown Organization [facility] Address [address] [place] [address] Phone [phone] Care Team Providers Care Balance Staff Staker Name Role Phone Kavya Dillardlle GARRETT Primary Care Provider Reason for Visit * Reason Onset Date Comments Appointment 08/26/2023 Encounter Details Date Type Department Care Team (Late st Contact Info) Description 08/26/2023 Telephone [facility] [address] [place] [address] Services, Scheduling [address] [place] [address] Appointment (/) Allergies No known active allergiesdocumented as of this encounter (statuses as of 08/26/2023) Medications Medication Sig Dispensed Refills Start Date End Date Status acetaminophen (TYLENOL) 500 MG Tablet Take 1 Tablet by mouth every 4 hours as needed for Pain. 0 11/18/2017 Active Multiple Vitamins-Minerals (MULTIVITAMIN ADULTS) TABS Take by mouth daily. 0 Active oxygen IN GASIndications:Inc to 4LPM with ambulation/exertion 2.5 lpm at rest 3 LPM continuous oxygen with exertion [facility] Indications: Inc to 4LPM with ambulation/exert [...] [place]) TAKE 1 TABLET BY MOUTH IN THE MORNING 90 Tablet 1 04/22/2023 Active Omeprazole 40 MG Oral Capsule Delayed Release (PriLOSEC) TAKE 1 CAPSULE BY MOUTH EVERY DAY 1 HOUR BEFORE THE FIRST MEAL OF THE DAY 90 Capsule 1 04/22/2023 Active Famotidine 20 MG Oral Tablet (Pepcid) TAKE BY MOUTH 1 TABLET NEEDED BEFORE BEDTIME FOR HEARTBURN. 90 Tablet 3 05/16/2023 Active Ventolin HFA 108 (90 Base) MCG/ACT Inhalation Aerosol SolutionIndications: COPD, group D, by GOLD 2017 classification ([facility]) Inhale 2 Puffs by mouth every 4 hours as needed for Wheezing. Brand necessary 54 g 3 05/20/2023 Active Thiamine HCl 100 MG Oral Tablet (vitamin B-1) TAKE 1 TABLET BY MOUTH EVERY DAY 90 Tablet 3 06/08/2023 Active Levalbuterol HCl 1.25 MG/3ML Inhalation Nebulization Solution (Xopenex)Indications :Chronic obstructive pulmonary disease, unspecified ([facility]) INHALE 1 AMPULE VIA NEBULIZER 3 TIMES A DAY. 810 mL 1 06/08/2023 Active Vancomycin HCl 125 MG Oral Capsule (Vancocin) Take one capsule four times a day for 10 days, then once capsule twice a day for 7 days, then one daily until otherwise directed. 120 Capsule 3 07/16/2023 Active Vitamin B-12 100 MCG Oral Tablet (vitamin B-12) TAKE 1 TABLET BY MOUTH EVERY DAY 90 Tablet 3 07/29/2023 Active guaiFENesin ER 1200 MG Oral Tablet Extended Release 12 Hour Take 1 Tablet by mouth in the morning and 1 Tablet before bedtime. 60 Tablet 3 08/16/2023 Active Ipratropium [place] 0.02 % Inhalation Solution (Atrovent)Indication s:Stage 3 severe COPD by GOLD classification ([facility]) Inhale 2.5 mL via nebulizer in the morning and 2.5 mL at noon and 2.5 mL before bedtime. 270 mL 2 08/18/2023 Active documented as of this encounter (statuses as of 08/26/2023) Active Problems Problem Noted Date Diagnosed Date [...] as of this encounter (statuses as of 08/26/2023) Resolved Problems Problem Noted Date Diagnosed Date [...] as of this encounter (statuses as of 08/26/2023) Immunizations Name Administration Dates Next Due COVID-19 [...] 8 per day. PHQ-2 Answer Date Recorded PHQ Adult Total Score 1 08/24/2023 Hunger Vital Sign Answer Date Recorded Within the past 12 months, y ou worried that your food would run out before you got the money to buy more. Never true 08/24/19 24 Within the past 12 months, t he food you bought just didn't last and you didn't have money to get more. Never true 08/24/2023 Sex and Gender Information Value Date Recorded Sex Assigned at Not on file Gender Identity Not on file Sexual Orientation Not on file Job Start Date Occupation Industry Not on file Not on file Not on file documented as of this encounter Miscellaneous Notes * Telephone Encounter - Gail Ortez OSA - 08/26/2023 11:00 AM EDT Per Request to cancel appt on 09/21 since pt is now using Hospice cancel appt. documented in this encounter Plan of Treatment Health Maintenance Due Date Last Done Comments *ADVANCE DIRECTIVE NOT ON FILE 09/25/2020 COVID-19 Vaccine (2022-07 4 season) 2023 01/24/2021, 10/07/2020 Depression Screening 08/23/2024 08/24/2023 O2 ASSESSMENT COMPLETED IN P AST YEAR FOR COPD 08/23/2024 08/24/2023 Zoster Vaccines Completed 02/08/2021, 07/27/2020 Influenza Vaccine (FLU shot) Completed , 06/26/2022, 04/12/2019, Additional history exists documented as of this encounter Medical Devices Not on filedocumented as of this encounter Care Teams Balance Staff Staker Relationship Specialty Start Date End Date Kavya Dillard CRNP [address] [place] [id number] PCP - General Nurse Practitioner 12/31/20 documented as of this encounter
--- OUTSIDE RECORDS SUMMARY | 2023-09-24 08:45 | External Medical Summary | Summary of Care ---
Author Name Unknown Organization [facility] Address [address] [place] [address] Phone [phone] Care Team Providers Care Dry Plasterer Name Role Phone Kavya Dillard Primary Care Provider Reason for Visit * Reason Onset Date Comments FYI 08/23/2023 Encounter Details Date Type Department Care Team (Late st Contact Info) Description 08/23/2023 Telephone Family Practice [facility] [address] [place] [facility] [place] [address] Kavya Dillard CRNP [address] [place] [address] FY Allergies No known active allergiesdocumented as of this encounter (statuses as of 08/23/2023) Medications Medication Sig Dispensed Refills Start Date [...] [facility] Indications: Inc to 4LPM with ambulation/exert [...] FECAL TRANSPLANT. 90 Capsule 1 01/04/2023 Active Ferrous Sulfate 325 (65 Fe) MG [...] - [place]) TAKE 1 TABLET BY MOUTH IN THE [...] ([facility]) Inhale 2 Puffs by mouth every 4 hours as needed for Wheezing. Brand necessary 54 g 3 05/20/2023 Active Thiamine HCl 100 MG Oral Tablet (vitamin B-1) TAKE 1 TABLET BY MOUTH EVERY DAY 90 Tablet 3 06/08/2023 Active Levalbuterol HCl 1.25 MG/3ML Inhalation Nebulization Solution (Xopenex)Indications :Chronic obstructive pulmonary disease, unspecified ([facility]) INHALE [...] bedtime. 60 Tablet 3 08/16/2023 Active Ipratropium [place] 0.02 % Inhalation Solution (Atrovent)Indication s:Stage 3 severe COPD by GOLD classification ([facility]) Inhale 2.5 mL via nebulizer in the morning and 2.5 mL at noon and 2.5 mL before bedtime. 270 mL 2 08/18/2023 Active documented as of this encounter (statuses as of 08/23/2023) Active Problems Problem Noted Date Diagnosed Date [...] as of this encounter (statuses as of 08/23/2023) Resolved Problems Problem Noted Date Diagnosed Date [...] as of this encounter (statuses as of 08/23/2023) Immunizations Name Administration Dates Next Due COVID-19 [...] Miscellaneous Notes * Telephone Encounter - Shannan Escalona OSA - 08/23/2023 11:34 AM EDT [facility] home health called to let you know they are discharging pt from palliative care and hospice will be admitting him this week documented in this encounter Plan of Treatment Upcoming Encounters Date Type Department Care Team (Late st Contact Info) Description 08/24/2023 3:00 PM EDT Office Visit Family Practice [facility] [address] [place] [address] Kavya Dillard CRNP [address] [place] [id number] 09/22/2023 2:[address] [facility], [address] [place] [address] Taylor Schwartz PA-C [address] [place] [address] Kristi Viveros, [facility] [employer] [address] [place] [address] Health Maintenance Due Date Last Done Comments Alpha-1 Antitrypsin 1958 *ADVANCE DIRECTIVE NOT ON FILE 09/25/2020 Depression Screening 11/12/2020 11/13/2019 COVID-19 Vaccine ( season) 2023 01/24/2021, 10/07/2020 O2 ASSESSMENT COMPLETED IN PAST YEAR FOR COPD 06/23/2024 06/23/2023 DTaP,Tdap,and Td Vaccines (2 - Td or Tdap) 10/21/2027 10/20/2017 LUNG CANCER SCREENING - USE SMARTSET [id number] Completed 06/23/2017 Pneumococcal Vaccine: 65+ Years Completed [...] filedocumented as of this encounter Care Teams Dry Plasterer Relationship Specialty Start Date End Date Kavya Dillard CRNP [address] [place] [address] PCP - General Nurse Practitioner 12/31/20 documented as of this encounter
--- OUTSIDE RECORDS SUMMARY | 2023-09-24 08:45 | External Medical Summary | Summary of Care ---
Author Name Unknown Organization [facility] Address [address] [place] [address] Phone [phone] Care Team Providers Care Kindergartner Name Role Phone Kavya Dillard Primary Care Provider Reason for Visit * Reason Onset Date Comments FYI 08/16/2023 Home Health 08/16/2023 Encounter Details Date Type Department Care Team (Late st Contact Info) Description 08/16/2023 Telephone Family Practice [facility] [address] [facility] [place] [address] Kavya Dillard CRNP [address] [facility] [address] FYI; Home Health Allergies No known active allergiesdocumented as of this encounter (statuses as of 08/16/2023) Medications Medication Sig Dispensed Refills Start Date End Date Status acetaminophen (TYLENOL) 500 MG Tablet Take 1 Tablet by mouth every 4 hours as needed for Pain. 0 8 Active Multiple Vitamins-Minerals (MULTIVITAMIN ADULTS) TABS Take by mouth daily. 0 Active oxygen IN GASIndications:Inc to 4LPM with ambulation/exertion 2.5 lpm at rest 3 LPM continuous oxygen with exertion DME: [facility] Indications: Inc to 4LPM with ambulation/exer [...] THE MORNING 90 Tablet 3 3 Active Vancomycin HCl 125 MG Oral Capsule (Vancocin) 1 CAP DAILY UNTIL FECAL TRANSPLANT. 90 Capsule 1 3 Active Ipratropium [place] 0.02 % Inhalation Solution (Atrovent)Indicatio ns:Stage 3 severe COPD by GOLD classification ([facility]) USE 1 VIAL IN NEBULIZER 3 TIMES DAILY FOR SEVERE CHRONIC OBSTRUCTIVE PULMONARY DISEASE 250 mL 4 3 Active Ferrous Sulfate 325 (65 Fe) MG Oral Tablet (Feosol) Take 1 Tablet by mouth in the morning and 1 Tablet before bedtime. 60 Tablet 6 3 Active Magnesium Chloride 64 MG Oral Tablet Delayed Release (Mag-64) Take 1 Tablet by mouth in the morning. 180 Tablet 1 3 Active Folic Acid 1 MG Oral TabletIndications:C [...] FOR HEARTBURN. 90 Tablet 3 3 Active Roflumilast 500 MCG Oral Tablet (Daliresp) Take 1 Tablet by mouth in the morning. 180 Tablet 4 3 Active Ventolin HFA 108 (90 Base) MCG/ACT Inhalation Aerosol SolutionIndications :COPD, group D, by GOLD 2017 classification ([facility]) Inhale 2 Puffs by mouth [...] A DAY. 810 mL 1 4 Active predniSONE 10 MG Oral Tablet (Deltasone) Take 5 tabs for 2 days, 4 tabs for 2 days, 3 tabs for 2 days, 2 tabs for 2 days 1 tab for 2 days 30 Tablet 0 4 Active Vancomycin HCl 125 MG Oral Capsule (Vancocin) Take one capsule four times a day for 10 days, then once capsule twice a day for 7 days, then one daily until otherwise directed. 120 Capsule 3 4 Active Vitamin B-12 100 MCG Oral Tablet (vitamin B-12) TAKE 1 TABLET BY MOUTH EVERY DAY 90 Tablet 3 4 Active Trelegy Ellipta 100-62.5-25 MCG/ACT Aerosol Powder Breath Activated (Fluticasone-Umecli dinium-Vilanterol) INHALE 1 PUFF BY MOUTH IN THE MORNING 60 Each 5 4 Active predniSONE 20 MG Oral Tablet (Deltasone) Take 1 Tablet by mouth daily for 5 days, THEN 0.5 Tablets daily for 5 days. 8 Tablet 0 4 08/26/19 24 Active guaiFENesin ER 1200 MG Oral Tablet Extended Release 12 Hour Take 1 Tablet by mouth in the morning and 1 Tablet before bedtime. 60 Tablet 3 4 Active predniSONE 10 MG Oral Tablet (Deltasone) Take 5 tabs for 2 days, 4 tabs for 2 days, 3 tabs for 2 days, 2 tabs for 2 days 1 tab for 2 days 30 Tablet 0 4 08/16/19 24 Discontinued documented as of this encounter (statuses as of 08/16/2023) Active Problems Problem Noted Date Diagnosed Date [...] as of this encounter (statuses as of 08/16/2023) Resolved Problems Problem Noted Date Diagnosed Date [...] as of this encounter (statuses as of 08/16/2023) Immunizations Name Administration Dates Next Due COVID-19 mRNA, LNP-s, No Pre serve, 2-Dose Series (Moderna) 01/24/2021,10/07/2020 PPD 04/22/2005 Pneumococcal Conjugate Vacc, 13 Valent (Prevnar) 10/20/2017 Pneumococcal Polysaccharide PPV23 (Pneumovax) 04/27/2017 Seasonal Influenza Virus Vac cine, Unspecified Formulation 06/26/2022 Seasonal Influenza, PF, 6 M & above, IM , (FluLaval or Fluzone) 02/28/2018,03/12/2017 Seasonal Influenza, Quadriva lent Hd (Fluzone Hd) 04/01/2023 Seasonal Influenza, Split, I IV3, With Preserve, [...] Telephone Encounter - Kayli Horton RN - 08/16/2023 2:37 PM EDT Script signed. * Telephone Encounter - Kayli Horton RN - 08/16/2023 1:41 PM EDT Called and spoke with patient. 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 Kavya Can we send the Guafenisen as an rx? (Pended if appropriate) Thank you! * Telephone Encounter - Kavya Dillard CRNP - 08/16/2023 1:12 PM EDT Sent prednisone to pharmacy Increase albuterol neb to every 6 hours Add mucinex 1200 mg twice daily. Randy, MSN, GARRETT [facility] * Telephone Encounter - Kayli Horton RN - 08/16/2023 1:00 PM EDT Called and spoke with [facility] Palliative home nurse, she reports that Olivia had expiratory wheezes todaythat were not there last week. She reports that their Palliative provider, Dr. Ryan, does not order rescue kits and they would still ask PCP for this. They reviewed and feel he is on all medications for his COPD that they would offer with the exception would be to add morphine for SOB. Olivia has been set up for a hospice consult on as he had voiced to nurse Egan that he does not want any aggressive treatment/measures taken. He would be agreeable to rescue kit. Kavya, Would you be willing to order COPD rescue kit? Thank you * Telephone Encounter - Kavya Dillard CRNP - 08/16/2023 12:40 PM EDT Kayli.. can you talk to olivia please. Also I thought he was on hospice care? * Telephone Encounter - Jennifer Abdalla LPN - 08/16/2023 11:26 AM EDT MORGAN Concerns Julisa RN, Calling from: [facility] Report/Concerns of: wheezing and cough Symptoms: cough- productive, color green, and consistencythick Vitals: T98 P71 BP 128/70 SP O297% 3liters Lung sounds wheezing Narrative: pt has wheezing in left lower lobe that started since last HH on 07/14. Pt is using his inhalers. He is not taking anything OTC like Mucinex Pt is not certain when cough and wheezing began sometime over the weekend. Julisa inquiring if ABX and prednisone could be sent to pharm? Due to transportation he is not able to come in for appt, he has upcoming appt on 08/23 Call back Jer with any advice or orders at [phone] * Telephone Encounter - Otilia Dodson OSA - 08/16/2023 11:22 AM EDT Reason for patient's call: home health Caller was transferred to Jennifer at the nurse line. documented in this encounter Plan of Treatment Upcoming Encounters Date Type Department Care Team (Late st Contact Info) Description 08/24/2023 3:00 PM EDT Office Visit Family Practice Health system [address] [facility] [place] [address] Kavya Dillard CRNP [address] [place] [address] 09/22/2023 2:30 PM EDT [facility], [place] [address] [place] [address] Taylor Schwartz PA-C [address] [place] [address] Kristi Viveros, Community [facility] Construction Technology Instructor [address] [place] [address] Health Maintenance Due Date Last Done Comments Alpha-1 Antitrypsin 1958 *ADVANCE DIRECTIVE NOT ON FILE 09/25/2020 Depression Screening 11/12/2020 11/13/2019 COVID-19 Vaccine (3 - 2022- season) 2023 01/24/2021, 10/07/2020 O2 ASSESSMENT COMPLETED IN PAST YEAR FOR COPD 06/23/2024 06/23/2023 DTaP,Tdap,and Td Vaccines (2 - Td or Tdap) 10/21/2027 10/20/2017 LUNG CANCER SCREENING - USE SMARTSET [id number] Completed 06/23/2017 Pneumococcal Vaccine: 65+ Years Completed [...] filedocumented as of this encounter Care Teams Kindergartner Relationship Specialty Start Date End Date Kavya Dillard CRNP [address] [place] [address] PCP - General Nurse Practitioner 12/31/20 documented as of this encounter
--- OUTSIDE RECORDS SUMMARY | 2023-09-24 08:45 | External Medical Summary | Summary of Care ---
Author Name Unknown Organization [facility] Address [address] [place] [address] Phone [phone] Care Team Providers Care Rigging Foreman Name Role Phone Kavya Dillard Primary Care Provider Reason for Visit * Reason Onset Date Comments FYI 08/16/2023 Home Health 08/16/2023 Encounter Details Date Type Department Care Team (Late st Contact Info) Description 08/16/2023 Telephone Family Practice [facility] [address] [facility] [place] [address] Kavya Dillard CRNP [address] [place] [address] FYI; Home Health Allergies No known active [...] TRANSPLANT. 90 Capsule 1 3 Active Ipratropium [place] 0.02 % Inhalation Solution (Atrovent)Indicatio ns:Stage 3 [...] and spoke with patient. 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 Kavya Can we send the Guafenisen as an rx? (Pended if appropriate) Thank you! * Telephone Encounter - Kavya Dillard CRNP - 08/16/2023 1:12 PM EDT Sent prednisone to pharmacy Increase albuterol neb to every 6 hours Add mucinex 1200 mg twice daily. Randy, MSN, GARRETT [facility] * Telephone Encounter - Kayli Horton RN - 08/16/2023 1:00 PM EDT Called and spoke with [facility] Palliative home nurse, she reports that Olivia [...] EDT MORGAN Concerns Julisa RN, Calling from: [facility] Report/Concerns of: wheezing and cough Symptoms: cough- [...] Jer with any advice or orders at [phone] * Telephone Encounter - Otilia Dodson OSA - 08/16/2023 11:22 AM EDT Reason for patient's call: home health Caller was transferred to Jennifer at the nurse line. documented in this encounter Plan of Treatment Upcoming Encounters Date Type Department Care Team (Late st Contact Info) Description 08/24/2023 3:00 PM EDT Office Visit Family Practice [facility] [address] [facility] [place] [address] Kavya Dillard CRNP [address] [place] [address] 09/22/2023 2:30 PM EDT [facility], [place] [address] [place] [address] Taylor Schwartz PA-C [address] [place] [address] Kristi Viveros, [facility] [employer] [address] [place] [address] Health Maintenance Due Date Last Done Comments Alpha-1 Antitrypsin 1958 *ADVANCE DIRECTIVE NOT ON FILE 09/25/2020 Depression Screening 11/12/2020 11/13/2019 COVID-19 Vaccine (3 - 2022- season) 2023 01/24/2021, 10/07/2020 O2 ASSESSMENT COMPLETED IN PAST YEAR FOR COPD 06/23/2024 06/23/2023 DTaP,Tdap,and Td Vaccines (2 - Td or Tdap) 10/21/2027 10/20/2017 LUNG CANCER SCREENING - USE SMARTSET [id number] Completed 06/23/2017 Pneumococcal Vaccine: 65+ Years Completed [...] filedocumented as of this encounter Care Teams Rigging Foreman Relationship Specialty Start Date End Date Kavya Dillard CRNP [address] [place] [address] PCP - General Nurse Practitioner 12/31/20 documented as of this encounter
--- OUTSIDE RECORDS SUMMARY | 2023-09-24 08:45 | External Medical Summary | Summary of Care ---
Author Name Unknown Organization [facility] Address [address] [place] [address] Phone [phone] Care Team Providers Care Licensed Certified Orthotist Name Role Phone DorisKavya barbosa Yoanna TUCKER Primary Care Provider Reason for Visit * Reason Comments eRx-Medication Refill Encounter Details Date Type Department Care Team (Late st Contact Info) Description 08/17/2023 [facility] [place] [address] Nisreen Jennings CRNP [address] [facility] [place] [address] Allergies No known active allergiesdocumented as of this encounter (statuses as of 08/17/2023) Medications Medication Sig Dispensed Refills Start Date [...] [facility] Indications: Inc to 4LPM with ambulation/exerti [...] FECAL TRANSPLANT. 90 Capsule 1 01/04/2023 Active Ipratropium [place] 0.02 % Inhalation Solution (Atrovent)Indication s:Stage 3 severe COPD by GOLD classification ([facility]) USE 1 VIAL IN NEBULIZER 3 TIMES DAILY FOR SEVERE CHRONIC OBSTRUCTIVE PULMONARY DISEASE 250 mL 4 02/01/2023 Active Ferrous Sulfate 325 (65 Fe) MG [...] [facility] [place]) TAKE 1 TABLET BY MOUTH IN THE [...] by GOLD 2017 classification ([facility]) Inhale 2 Puffs by mouth every 4 hours as needed for Wheezing. Brand necessary 54 g 3 05/20/2023 Active Thiamine HCl 100 MG Oral Tablet (vitamin B-1) TAKE 1 TABLET BY MOUTH EVERY DAY 90 Tablet 3 06/08/2023 Active Levalbuterol HCl 1.25 MG/3ML Inhalation Nebulization Solution (Xopenex)Indications :Chronic obstructive pulmonary disease, unspecified ([facility]) INHALE 1 AMPULE VIA NEBULIZER 3 TIMES [...] for 5 days. 8 Tablet 0 08/16/2023 4 Active guaiFENesin ER 1200 MG Oral Tablet Extended Release 12 Hour Take 1 Tablet by mouth in the morning and 1 Tablet before bedtime. 60 Tablet 3 08/16/2023 Active documented as of this encounter (statuses as of 08/17/2023) Active Problems Problem Noted Date Diagnosed Date [...] as of this encounter (statuses as of 08/17/2023) Resolved Problems Problem Noted Date Diagnosed Date [...] as of this encounter (statuses as of 08/17/2023) Immunizations Name Administration Dates Next Due COVID-19 [...] encounter Miscellaneous Notes * Telephone Encounter - Ashli Lincoln - 08/17/2023 1:07 PM EDTRefused Prescriptions: Disp Refills Vancomycin HCl 125 MG Oral Capsule (Vancoc*90 Cap*1 Sig: TAKE 1CAP DAILY UNTIL FECAL TRANSPLANT.Refused By: ASHLI LINCOLNReason for Refusal: Duplicate Request- documented in this encounter Plan of Treatment Upcoming Encounters Date Type Department Care Team (Late st Contact Info) Description 08/24/2023 3:00 PM EDT Office Visit Family Practice [facility] [address] [place] [address] Kavya Dillard CRNP [address] [place] [address] 09/22/2023 2:30 PM EDT Telemedicine [facility], [place] [address] [place] [address] Taylor Schwartz PA-C [address] [place] [address] Kristi Viveros, [facility] Premium Card Cancellation Clerk [address] [place] [address] Health Maintenance Due Date Last Done Comments Alpha-1 Antitrypsin 1958 *ADVANCE DIRECTIVE NOT ON FILE 09/25/2020 Depression Screening 11/12/2020 11/13/2019 COVID-19 Vaccine ( season) 2023 01/24/2021, 10/07/2020 O2 ASSESSMENT COMPLETED IN PAST YEAR FOR COPD 06/23/2024 06/23/2023 DTaP,Tdap,and Td Vaccines (2 - Td or Tdap) 10/21/2027 10/20/2017 LUNG CANCER SCREENING - USE SMARTSET [id number] Completed 06/23/2017 Pneumococcal Vaccine: 65+ Years Completed [...] filedocumented as of this encounter Care Teams Licensed Certified Orthotist Relationship Specialty Start Date End Date Kavya Dillard CRNP [address] [place] [address] PCP - General Nurse Practitioner 12/31/20 documented as of this encounter
--- OUTSIDE RECORDS SUMMARY | 2023-09-24 08:45 | External Medical Summary | Summary of Care ---
Author Name Unknown Organization [facility] Address [address] [place] [address] Phone [phone] Care Team Providers Care Drilling Machine Runner Name Role Phone Kavya Jacinto Primary Care Provider Reason for Visit * Reason Onset Date Comments Medication Refill 08/18/2023 Encounter Details Date Type Department Care Team (Late st Contact Info) Description 08/18/2023 Refill Family Practice [facility] [address] [place] [facility] [place] [address] Kavya Jacinto CRNP [address] [place] [address] Stage 3 severe COPD by GOLD classification ([facility]) Allergies No known active allergiesdocumented as of this encounter (statuses as of 08/18/2023) Medications Medication Sig Dispensed Refills Start Date End Date Status acetaminophen (TYLENOL) 500 MG Tablet Take 1 Tablet by mouth every 4 hours as needed for Pain. 0 11/18/2017 Active Multiple Vitamins-Minerals (MULTIVITAMIN ADULTS) TABS Take by mouth daily. 0 Active oxygen IN GASIndications:Inc to 4LPM with ambulation/exertion 2.5 lpm at rest 3 LPM continuous oxygen with exertion DME: [facility] Indications: Inc to [...] 04/14/2023 Active Folic Acid 1 MG Oral TabletIndications:C hronic respiratory failure with hypoxia, on home O2 therapy ([facility]) TAKE 1 TABLET BY MOUTH IN THE [...] D, by GOLD 2017 classification ([facility]) Inhale 2 Puffs by mouth every 4 hours as needed for Wheezing. Brand necessary 54 g 3 05/20/2023 Active Thiamine HCl 100 MG Oral Tablet (vitamin B-1) TAKE 1 TABLET BY MOUTH EVERY DAY 90 Tablet 3 06/08/2023 Active Levalbuterol HCl 1.25 MG/3ML Inhalation Nebulization Solution (Xopenex)Indication s:Chronic obstructive pulmonary disease, unspecified ([facility]) INHALE 1 AMPULE VIA NEBULIZER 3 [...] for 5 days. 8 Tablet 0 08/16/2023 08/26/19 24 Active guaiFENesin ER 1200 MG Oral Tablet Extended Release 12 Hour Take 1 Tablet by mouth in the morning and 1 Tablet before bedtime. 60 Tablet 3 08/16/2023 Active Ipratropium [place] 0.02 % Inhalation Solution (Atrovent)Indicatio ns:Stage 3 severe COPD by GOLD classification ([facility]) Inhale 2.5 mL via nebulizer in the morning and 2.5 mL at noon and 2.5 mL before bedtime. 270 mL 2 08/18/2023 Active Ipratropium [place] 0.02 % Inhalation Solution (Atrovent)Indicatio ns:Stage 3 severe COPD by GOLD classification ([facility]) USE 1 VIAL IN NEBULIZER 3 TIMES DAILY FOR SEVERE CHRONIC OBSTRUCTIVE PULMONARY DISEASE 250 mL 4 02/01/2023 08/18/19 24 Discontinu ed(Refill) documented as of this encounter (statuses as of 08/18/2023) Active Problems Problem Noted Date Diagnosed Date [...] as of this encounter (statuses as of 08/18/2023) Resolved Problems Problem Noted Date Diagnosed Date [...] as of this encounter (statuses as of 08/18/2023) Immunizations Name Administration Dates Next Due COVID-19 [...] Telephone Encounter - Kavya Jacinto CRNP - 08/18/2023 2:57 PM EDT Signed Prescriptions: Disp Refills Ipratropium [place] 0.02 % Inhalation Solu*270 mL 2 Sig: Inhale 2.5 mL via nebulizer in the morning and 2.5 mL at noon and 2.5 mL before bedtime. Authorizing Provider: KAVYA JACINTO * Telephone Encounter - Kayli Horton RN - 08/18/2023 2:49 PM EDT Did you pend patient's preferred pharmacy and medication before forwarding?yes Pharmacy: Pending Prescriptions: Disp Refills Ipratropium [place] 0.02 % Inhalation Yoselin*270 mL 2 Sig: Inhale 2.5 mL via nebulizer in the morning and 2.5 mL at noon and 2.5 mL before bedtime. Last Visit: 05/20/2023 (in office), Visit date not found (telemedicine) Next Visit: 08/24/2023 If no future appointments scheduled, and last appointment is greater than a year ago, please schedule patient for a follow-up appointment Last date the medication was ordered: 01/2023 Is this request for a controlled substance?No Urine Drug Screen:No results found for this or any previous visit. Patient Phone Numbers Labs: Lab Results Component Value Date/Time CREAT 1.0 04/01/2023 03:49 PM CREAT 0.81 08/30/2021 12:00 AM CREAT 1.1 06/18/2017 09:59 AM POTASSIUM 3.6 04/01/2023 03:49 PM POTASSIUM 3.2 (A) 08/30/2021 12:00 AM [...] 3:00 PM EDT Office Visit Family Practice [facility] [address] [place] [address] Kavya Jacinto CRNP [address] [place] [address] 09/22/2023 2:30 PM EDT Telemedicine [facility], [place] [address] [place] [address] Taylor Schwartz PA-C [address] [place] [address] Kristi Viveros, [facility] [address] [place] [address] Health Maintenance Due Date Last Done Comments Alpha-1 Antitrypsin 1958 *ADVANCE DIRECTIVE NOT ON FILE 09/25/2020 Depression Screening 11/12/2020 11/13/2019 COVID-19 Vaccine ( season) 2023 01/24/2021, 10/07/2020 O2 ASSESSMENT COMPLETED IN PAST YEAR FOR COPD 06/23/2024 06/23/2023 DTaP,Tdap,and Td Vaccines (2 - Td or Tdap) 10/21/2027 10/20/2017 LUNG CANCER SCREENING - USE SMARTSET [id number] Completed 06/23/2017 Pneumococcal Vaccine: 65+ Years Completed [...] (HCC) documented in this encounter Care Teams Drilling Machine Runner Relationship Specialty Start Date End Date Kavya Jacinto CRNP [address] [place] [address] PCP - General Nurse Practitioner 12/31/20 documented as of this encounter
--- OUTSIDE RECORDS SUMMARY | 2023-09-24 08:45 | External Medical Summary | Summary of Care ---
Author Name Unknown Organization [facility] Address [address] [place] [address] Phone [phone] Care Team Providers Care Rug Clipper Name Role Phone DorisKavya barbosa Yoanna TUCKER Primary Care Provider Reason for Visit * Reason Comments eRx-Medication Refill Encounter Details Date Type Department Care Team (Late st Contact Info) Description 08/16/2023 [facility]ill [facility] [place] [address] Nisreen Jennings CRNP [address] [facility] [place] [address] Allergies No known active allergiesdocumented as of [...] 3 LPM continuous oxygen with exertion DME: [facility] Indications: Inc to 4LPM with [...] therapy (HCC) TAKE 1 TABLET BY MOUTH IN THE [...] GOLD 2017 classification ([facility]) Inhale 2 Puffs by mouth every 4 hours as needed for Wheezing. Brand necessary 54 g 3 05/20/2023 Active Thiamine HCl 100 MG Oral Tablet (vitamin B-1) TAKE 1 TABLET BY MOUTH EVERY DAY 90 Tablet 3 06/08/2023 Active Levalbuterol HCl 1.25 MG/3ML Inhalation Nebulization Solution (Xopenex)Indication s:Chronic obstructive pulmonary disease, unspecified ([facility] [...] before bedtime. 60 Tablet 3 08/16/2023 Active Vancomycin HCl 125 MG Oral Capsule (Vancocin) 1 CAP DAILY UNTIL FECAL TRANSPLANT. 90 Capsule 1 08/23/2023 Active Vancomycin HCl 125 MG Oral Capsule (Vancocin) 1 CAP DAILY UNTIL FECAL TRANSPLANT. 90 Capsule 1 01/04/2023 08/23/19 24 Discontinu ed(Refill) Ipratropium [place] 0.02 % Inhalation Solution (Atrovent)Indicatio ns:Stage 3 [...] Telephone Encounter - Kavya Jacinto CRNP - 08/23/2023 2:15 PM EDT Signed Prescriptions: Disp Refills Vancomycin HCl 125 MG Oral Capsule (Vancoc*90 Cap*1 Si CAP DAILY UNTIL FECAL TRANSPLANT. Authorizing Provider: KAVYA JACINTO Refused Prescriptions: Disp Refills Vancomycin HCl 125 MG Oral Capsule (Vancoc*90 Cap*1 Sig: TAKE 1 CAP DAILY UNTIL FECAL TRANSPLANT. Refused By: NISREEN JENNINGS for Refusal: Managed by another physician * Telephone Encounter - Jian Turner [facility] - 08/23/2023 1:14 PM EDT Rob Hoff, Would you be agreeable to refilling daily vancomycin? Refill pended. * Telephone Encounter - Nisreen Jennings CRNP - 08/16/2023 8:43 PM EDTRefused Prescriptions: Disp Refills Vancomycin HCl 125 MG Oral Capsule (Vancoc*90 Cap*1 Sig: TAKE 1 CAP DAILY UNTIL FECAL TRANSPLANT. Refused By: NISREEN JENNINGS Reason for Refusal: Managed by another physician * Telephone Encounter - Nisreen Jennings CRNP - 08/16/2023 8:43 PM EDT I think PCP is filling this now as he hasn't been in clinic in over 2 years GARRETT Colon 08/16/2023 8:43 PM * Telephone Encounter - Jian Turner [facility] - 08/16/2023 2:52 PM EDT Pending Prescriptions: Disp Refills Vancomycin HCl 125 MG Oral Capsule [Pharma*90 Cap*1 Sig: TAKE 1CAP DAILY UNTIL FECAL TRANSPLANT. documented in this encounter Plan of Treatment Upcoming Encounters Date Type Department Care Team (Late st Contact Info) Description 08/24/2023 3:00 PM EDT Office Visit [facility] [address] [place] [address] Kavya Jacinto CRNP [address] [place] [address] 09/22/2023 2:30 PM EDT Telemedicine [facility], [place] [address] [place] [address] Taylor Schwartz PA-C [address] [place] [address] Kristi Viveros, [facility] Emt Paramedic [address] [place] [address] Health Maintenance Due Date Last Done Comments Alpha-1 Antitrypsin 1958 *ADVANCE DIRECTIVE NOT ON FILE 09/25/2020 Depression Screening 11/12/2020 11/13/2019 COVID-19 Vaccine (2022- season) 2023 01/24/2021, 10/07/2020 O2 ASSESSMENT COMPLETED IN PAST YEAR FOR COPD 06/23/2024 06/23/2023 DTaP,Tdap,and Td Vaccines (2 - Td or Tdap) 10/21/2027 10/20/2017 LUNG CANCER SCREENING - USE SMARTSET [id number] Completed 06/23/2017 Pneumococcal Vaccine: 65+ Years Completed [...] filedocumented as of this encounter Care Teams Rug Clipper Relationship Specialty Start Date End Date Kavya Jacinto CRNP [address] [place] [address] PCP - General Nurse Practitioner 12/31/20 documented as of this encounter
--- OUTSIDE RECORDS SUMMARY | 2023-09-24 08:46 | External Medical Summary | Summary of Care ---
Author Name Unknown Organization [facility] Address [address] [place] [address] Phone [phone] Care Team Providers Care Forestry Technical Officer Name Role Phone Kavya Dillard GARRETT Primary Care Provider Reason for Visit * Reason Onset Date Comments Palliative Care Follow-up 07/07/2023 Encounter Details Date Type Department Care Team (Late st Contact Info) Description 07/07/2023 Telephone Palliative Medicine [facility] [address] [place] [address] Jenifer Colby MD [address] [place] [id number] Palliative Care Follow-up Allergies No known active allergiesdocumented as of this encounter (statuses as of 07/09/2023) Medications Medication Sig Dispensed Refills Start Date End Date Status acetaminophen (TYLENOL) 500 MG Tablet Take 1 Tablet by mouth every 4 hours as needed for Pain. 0 11/18/2017 Active Multiple Vitamins-Minerals (MULTIVITAMIN ADULTS) TABS Take by mouth daily. 0 Active oxygen IN GASIndications:Inc to 4LPM with ambulation/exertion 2.5 lpm at rest 3 LPM continuous oxygen with exertion DME: [facility] Indications: Inc to 4LPM with ambulation/exerti on 1 Each 0 04/01/2021 Active Saccharomyces boulardii 250 MG Oral Capsule (Florastor) Take 1 Capsule by mouth in the morning. Florastor . 0 Active Vitamin B-12 100 MCG Oral Tablet (vitamin B-12) TAKE 1 TABLET BY MOUTH DAILY 90 Tablet 3 06/25/2022 Active guaiFENesin 200 MG Oral Tablet TAKE [...] MORNING 60 Each 5 01/22/2023 Active Ipratropium [place] 0.02 % Inhalation Solution (Atrovent)Indication s:Stage 3 severe COPD by GOLD classification ([facility]) USE 1 VIAL IN NEBULIZER [...] GOLD 2017 classification ([facility]) Inhale 2 Puffs by mouth [...] tab for 2 days 30 Tablet 0 06/16/2023 Active predniSONE 10 MG Oral Tablet (Deltasone) Take 5 tabs for 2 days, 4 tabs for 2 days, 3 tabs for 2 days, 2 tabs for 2 days 1 tab for 2 days 30 Tablet 0 07/06/2023 Active Clarithromycin 500 MG Oral Tablet (Biaxin) Take 1 Tablet by mouth in the morning and 1 Tablet before bedtime. Do all this for 7 days. 14 Tablet 0 07/06/2023 4 Active documented as of this encounter (statuses as of 07/09/2023) Active Problems Problem Noted Date Diagnosed Date [...] as of this encounter (statuses as of 07/09/2023) Resolved Problems Problem Noted Date Diagnosed Date [...] as of this encounter (statuses as of 07/09/2023) Immunizations Name Administration Dates Next Due COVID-19 [...] encounter Miscellaneous Notes * Telephone Encounter - Jennifer Franco LPN - 07/08/2023 1:55 PM EST 2nd attempt to reach patient No answer at home number-did not leave another message Call to sonJer's mobile number No answer Left message requesting return call to [phone] * Telephone Encounter - Jennifer Franco LPN - 07/07/2023 9:33 AM EST Palliative referral received Call to patient No answer Left detailed message requesting return call Looking to offer 07/21 at 12pm documented in this encounter Plan of Treatment Upcoming Encounters Date Type Department Care Team (Late st Contact Info) Description 08/24/2023 3:00 PM EDT Office Visit Family [facility] [address] [place] [address] Kavya Dillard CRNP [address] [place] [address] 09/22/2023 2:30 PM EDT Telemedicine [facility], [place] [address] [place] [address] Taylor Schwartz PA-C [address] [place] [address] Kristi Viveros, [facility] It Quality Assurance Analyst [address] [place] [address] Health Maintenance Due Date Last Done Comments Alpha-1 Antitrypsin 1958 *ADVANCE DIRECTIVE NOT ON FILE 09/25/2020 Depression Screening 11/12/2020 11/13/2019 COVID-19 Vaccine ( season) 2023 01/24/2021, 10/07/2020 O2 ASSESSMENT COMPLETED IN PAST YEAR FOR COPD 06/23/2024 06/23/2023 DTaP,Tdap,and Td Vaccines (2 - Td or Tdap) 10/21/2027 10/20/2017 LUNG CANCER SCREENING - USE SMARTSET [id number] Completed 06/23/2017 Pneumococcal Vaccine: 65+ Years Completed [...] filedocumented as of this encounter Care Teams Forestry Technical Officer Relationship Specialty Start Date End Date Kavya Dillard CRNP [address] [place] [address] PCP - General Nurse Practitioner 12/31/20 documented as of this encounter
--- OUTSIDE RECORDS SUMMARY | 2023-09-24 08:46 | External Medical Summary | Summary of Care ---
Author Name Unknown Organization [facility] Address [address] [place] [address] Phone [phone] Care Team Providers Care Test Facility Engineer Name Role Phone Kavya Dillardlle GARRETT Primary Care Provider Encounter Details Date Type Department Care Team (Late st Contact Info) Description 07/16/2023 Orders Only [facility] [place] [address] [place] [address] Taylor Schwartz PA-C [address] [place] [address] Allergies No known active allergiesdocumented as of this encounter (statuses as of 07/16/2023) Medications Medication Sig Dispensed Refills Start Date End Date Status acetaminophen (TYLENOL) 500 MG Tablet Take 1 Tablet by mouth every 4 hours as needed for Pain. 0 11/18/2017 Active Multiple Vitamins-Minerals (MULTIVITAMIN ADULTS) TABS Take by mouth daily. 0 Active oxygen IN GASIndications:Inc to 4LPM with ambulation/exertion 2.5 lpm at rest 3 LPM continuous oxygen with exertion DME: [facility] Indications: Inc to 4LPM with [...] MORNING 60 Each 5 01/22/2023 Active Ipratropium [place] 0.02 % Inhalation Solution (Atrovent)Indication s:Stage 3 severe COPD by GOLD classification ([facility]) USE 1 VIAL IN NEBULIZER 3 TIMES [...] [facility] [place]) TAKE 1 TABLET BY MOUTH IN THE [...] by GOLD 2017 classification ([facility]) Inhale 2 Puffs by mouth every 4 [...] otherwise directed. 120 Capsule 3 07/16/2023 Active documented as of this encounter (statuses as of 07/16/2023) Active Problems Problem Noted Date Diagnosed Date [...] as of this encounter (statuses as of 07/16/2023) Resolved Problems Problem Noted Date Diagnosed Date [...] as of this encounter (statuses as of 07/16/2023) Immunizations Name Administration Dates Next Due COVID-19 [...] 3:00 PM EDT Office Visit Family [facility] [address] [facility] [address] [facility] [address] [facility] [address] 09/22/2023 2:30 PM EDT Telemedicine [facility], [place] [address] [place] [address] Taylor Schwartz PA-C [address] [place] [address] Kristi Viveros, [facility] Industrial Twisting Machine Operator [address] [place] [address] Health Maintenance Due Date Last Done Comments Alpha-1 Antitrypsin 1958 *ADVANCE DIRECTIVE NOT ON FILE 09/25/2020 Depression Screening 11/12/2020 11/13/2019 COVID-19 Vaccine ( season) 2023 01/24/2021, 10/07/2020 O2 ASSESSMENT COMPLETED IN PAST YEAR FOR COPD 06/23/2024 06/23/2023 DTaP,Tdap,and Td Vaccines (2 - Td or Tdap) 10/21/2027 10/20/2017 LUNG CANCER SCREENING - USE SMARTSET [id number] Completed 06/23/2017 Pneumococcal Vaccine: 65+ Years Completed [...] filedocumented as of this encounter Care Teams Test Facility Engineer Relationship Specialty Start Date End Date Kavya Dillard CRNP [address] [place] [address] PCP - General Nurse Practitioner 12/31/20 documented as of this encounter
--- OUTSIDE RECORDS SUMMARY | 2023-09-24 08:46 | External Medical Summary | Summary of Care ---
Author Name Unknown Organization [facility] Address [address] [place] [address] Phone [phone] Care Team Providers Care Nursing Manager Name Role Phone Kavya Dillard Primary Care Provider Reason for Visit * Reason Comments eRx-Medication Refill Encounter Details Date Type Department Care Team (Late st Contact Info) Description 08/13/2023 Refill Family Practice [facility] [address] [place] [address] Kavya Dillard CRNP [address] [place] [address] Allergies No known active allergiesdocumented as of this encounter (statuses as of 08/13/2023) Medications Medication Sig Dispensed Refills Start Date [...] TRANSPLANT. 90 Capsule 1 3 Active Ipratropium [place] 0.02 % Inhalation Solution (Atrovent)Indicatio ns:Stage 3 [...] [facility]) TAKE 1 TABLET BY MOUTH IN [...] 2017 classification ([facility]) Inhale 2 Puffs by mouth every 4 hours as needed for Wheezing. Brand necessary 54 g 3 3 Active Thiamine HCl 100 MG Oral Tablet (vitamin B-1) TAKE 1 TABLET BY MOUTH EVERY DAY 90 Tablet 3 4 Active Levalbuterol HCl 1.25 MG/3ML Inhalation Nebulization Solution (Xopenex)Indication s:Chronic obstructive pulmonary disease, unspecified ([facility]) INHALE 1 AMPULE VIA NEBULIZER 3 TIMES A DAY. 810 mL 1 4 Active predniSONE 10 MG Oral Tablet (Deltasone) Take 5 tabs for 2 days, 4 tabs for 2 days, 3 tabs for 2 days, 2 tabs for 2 days 1 tab for 2 days 30 Tablet 0 4 Active predniSONE 10 MG Oral Tablet [...] THE MORNING 60 Each 5 4 Active Trelegy Ellipta 100-62.5-25 MCG/ACT Aerosol Powder Breath Activated (Fluticasone-Umecli dinium-Vilanterol) INHALE 1 PUFF BY MOUTH IN THE MORNING 60 Each 5 3 08/13/19 24 Discontinued documented as of this encounter (statuses as of 08/13/2023) Active Problems Problem Noted Date Diagnosed Date [...] as of this encounter (statuses as of 08/13/2023) Resolved Problems Problem Noted Date Diagnosed Date [...] as of this encounter (statuses as of 08/13/2023) Immunizations Name Administration Dates Next Due COVID-19 [...] encounter Miscellaneous Notes * Telephone Encounter - Nicolasa Richter MD - 08/13/2023 5:28 PM EST Signed Prescriptions: Disp Refills Trelegy Ellipta 100-62.5-25 MCG/ACT Aeroso*60 Each5 Sig: INHALE 1 PUFF BY MOUTH IN THE MORNING Authorizing Provider: NICOLASA RICHTER * Telephone Encounter - Kayli Horton RN - 08/13/2023 3:05 PM EST Did you pend patient's preferred pharmacy and medication before forwarding?yes Pharmacy: [id number] [address] [facility] Pending Prescriptions: Disp Refills Sheela Almendarezta 100-62.5-25 MCG/ACT Aeros*60 Each5 Sig: INHALE 1 PUFF BY MOUTH IN THE MORNING Last Visit: 05/20/2023 (in office), Visit date [...] Description 08/24/2023 3:00 PM EDT Office Visit [facility] [address] [place] [address] Kavya Dillard CRNP [address] [place] [address] 09/22/2023 2:30 PM EDT Telemedicine [facility], [place] [address] [place] [address] Taylor Schwartz PA-C [address] [place] [address] Kristi Viveros, [facility] Fitness Trainer [address] [place] [address] Health Maintenance Due Date Last Done Comments Alpha-1 Antitrypsin 1958 *ADVANCE DIRECTIVE NOT ON FILE 09/25/2020 Depression Screening 11/12/2020 11/13/2019 COVID-19 Vaccine (2022- season) 2023 01/24/2021, 10/07/2020 O2 ASSESSMENT COMPLETED IN PAST YEAR FOR COPD 06/23/2024 06/23/2023 DTaP,Tdap,and Td Vaccines (2 - Td or Tdap) 10/21/2027 10/20/2017 LUNG CANCER SCREENING - USE SMARTSET [id number] Completed 06/23/2017 Pneumococcal Vaccine: 65+ Years Completed [...] filedocumented as of this encounter Care Teams Nursing Manager Relationship Specialty Start Date End Date Kavya Dillard CRNP [address] [place] [address] PCP - General Nurse Practitioner 12/31/20 documented as of this encounter
--- OUTSIDE RECORDS SUMMARY | 2023-09-24 08:46 | External Medical Summary | Summary of Care ---
Author Name Unknown Organization [facility] Address [address] [place] [address] Phone [phone] Care Team Providers Care Clip Loading Machine Feeder Name Role Phone Kavya Jacinto Primary Care Provider Reason for Visit * Reason Comments eRx-Medication Refill Encounter Details Date Type Department Care Team (Late st Contact Info) Description 07/29/2023 Refill Family Practice [facility] [address] [place] [address] Kavya Jacinto CRNP [address] [place] [address] Allergies No known active allergiesdocumented as of this encounter (statuses as of 07/29/2023) Medications Medication Sig Dispensed Refills Start Date End Date Status acetaminophen (TYLENOL) 500 MG Tablet Take 1 Tablet by mouth every 4 hours as needed for Pain. 0 8 Active Multiple Vitamins-Minerals (MULTIVITAMIN ADULTS) TABS Take by mouth daily. 0 Active oxygen IN GASIndications:Inc to 4LPM with ambulation/exertion 2.5 lpm at rest 3 LPM continuous oxygen with exertion DME: [facility] Indications: Inc to 4LPM with [...] MORNING 60 Each 5 3 Active Ipratropium [place] 0.02 % Inhalation Solution (Atrovent)Indicatio ns:Stage 3 severe COPD by GOLD classification ([facility]) USE 1 VIAL IN NEBULIZER 3 [facility]) TAKE 1 TABLET BY MOUTH IN [...] :COPD, group D, by GOLD 2017 classification ([facility]) Inhale 2 Puffs by mouth every [...] EVERY DAY 90 Tablet 3 4 Active Vitamin B-12 100 MCG Oral Tablet (vitamin B-12) TAKE 1 TABLET BY MOUTH DAILY 90 Tablet 3 3 07/29/19 24 Discontinued documented as of this encounter (statuses as of 07/29/2023) Active Problems Problem Noted Date Diagnosed Date [...] as of this encounter (statuses as of 07/29/2023) Resolved Problems Problem Noted Date Diagnosed Date [...] as of this encounter (statuses as of 07/29/2023) Immunizations Name Administration Dates Next Due COVID-19 [...] Telephone Encounter - Kavya Jacinto CRNP - 07/29/2023 2:01 PM EST Signed Prescriptions: Disp Refills Vitamin B-12 100 MCG Oral Tablet (vitamin *90 Tab*3 Sig: TAKE 1 TABLET BY MOUTH EVERY DAY Authorizing Provider: KAVYA JACINTO * Telephone Encounter - Kathya Aranda LPN - 07/29/2023 1:38 PM ESTPending Prescriptions: Disp Refills Vitamin B-12 100 MCG Oral Tablet [Pharmacy*90 Tab*3 Sig: TAKE 1 TABLET BY MOUTH EVERY DAY * Telephone Encounter - Kathya Aranda LPN - 07/29/2023 1:37 PM EST Did you pend patient's preferred pharmacy and medication before forwarding?yes Pharmacy: [id number] [address] [facility] Pending Prescriptions: Disp Refills Vitamin B-12 100 MCG Oral Tablet (vitamin*90 Tab*3 Sig: TAKE 1 TABLET BY MOUTH EVERY DAY Last Visit: 05/20/2023 (in office), Visit date not found (telemedicine) Next Visit: 08/24/2023 If no future appointments scheduled, and last appointment is greater than a year ago, please schedule patient for a follow-up appointment Last date the medication was ordered: 06/25/22 Is this request for a controlled substance?No [...] 08/30/2006 11:56 AM * Telephone Encounter - Latonia Ashli - 07/29/2023 1:08 PM ESTPending Prescriptions: Disp Refills Vitamin B-12 100 MCG Oral Tablet [Pharmacy*90 Tab*3 Sig: TAKE 1TABLET BY MOUTH EVERY DAY documented in this encounter Plan of Treatment Upcoming Encounters Date Type Department Care Team (Late st Contact Info) Description 08/24/2023 3:00 PM EDT Office Visit Family Practice [facility] [address] [place] [address] Kavya Jacinto CRNP [address] [place] [address] 09/22/2023 2:30 PM EDT Telemedicine [facility], [place] [address] [place] [address] Taylor Schwartz PA-C [address] [place] [address] Kristi Viveros, Community Health Radio Interference Trouble Shooter [address] [place] [address] Health Maintenance Due Date Last Done Comments Alpha-1 Antitrypsin 1958 *ADVANCE DIRECTIVE NOT ON FILE 09/25/2020 Depression Screening 11/12/2020 11/13/2019 COVID-19 Vaccine (3 - 2022- season) 2023 01/24/2021, 10/07/2020 O2 ASSESSMENT COMPLETED IN PAST YEAR FOR COPD 06/23/2024 06/23/2023 DTaP,Tdap,and Td Vaccines (2 - Td or Tdap) 10/21/2027 10/20/2017 LUNG CANCER SCREENING - USE SMARTSET [id number] Completed 06/23/2017 Pneumococcal Vaccine: 65+ Years Completed [...] filedocumented as of this encounter Care Teams Clip Loading Machine Feeder Relationship Specialty Start Date End Date Kavya Jacinto CRNP [address] [place] [address] PCP - General Nurse Practitioner 12/31/20 documented as of this encounter
--- OUTSIDE RECORDS SUMMARY | 2023-09-24 08:47 | External Medical Summary | Summary of Care ---
Author Name Unknown Organization [facility] Address [address] [place] [address] Phone [phone] Care Team Providers Care Boat Dock Operator Name Role Phone Kavya Dillardlle GRARETT Primary Care Provider Reason for Visit * Reason Onset Date Comments Test Results 07/06/2023 Encounter Details Date Type Department Care Team (Late st Contact Info) Description 07/06/2023 Telephone [facility], [place] [address] [place] [address] Taylor Schwartz PA-C [address] [place], [place] [id number] Test Results Allergies No known active allergiesdocumented as of this encounter (statuses as of 07/06/2023) Medications Medication Sig Dispensed Refills Start Date End Date Status acetaminophen (TYLENOL) 500 MG Tablet Take 1 Tablet by mouth every 4 hours as needed for Pain. 0 11/18/2017 Active Multiple Vitamins-Minerals (MULTIVITAMIN ADULTS) TABS Take by mouth daily. 0 Active oxygen IN GASIndications:Inc to 4LPM with ambulation/exertion 2.5 lpm at rest 3 LPM continuous oxygen with exertion DME: [facility] Indications: Inc to 4LPM with ambulation/exerti [...] MORNING 60 Each 5 01/22/2023 Active Ipratropium [place] 0.02 % Inhalation Solution (Atrovent)Indication s:Stage 3 [...] for 7 days. 14 Tablet 0 07/06/2023 Active documented as of this encounter (statuses as of 07/06/2023) Active Problems Problem Noted Date Diagnosed Date [...] as of this encounter (statuses as of 07/06/2023) Resolved Problems Problem Noted Date Diagnosed Date [...] as of this encounter (statuses as of 07/06/2023) Immunizations Name Administration Dates Next Due COVID-19 [...] Miscellaneous Notes * Telephone Encounter - Taylor Schwartz PA-C - 07/06/2023 2:32 PM EST Called and spoke with the patient in regards to CXR results. Shows left air space opacities and increased lung markings. He feels more SOB then baseline. He is coughing up yellow/green sputum and still having sinus pressure. No fever/chills. He is doing his breathing treatments. Will treat with antibiotics and I will order a taper of steroids this time as I think he needs a longer course. He is aware that palliative care should be reaching out to him for an appointment. Advised to reach out if S/S worsen or persist while on current treatment. documented in this encounter Plan of Treatment Upcoming Encounters Date Type Department Care Team (Late st Contact Info) Description 08/24/2023 3:00 PM EDT Office Visit Family [facility] [address] [facility] [place] [address] Kavya Dillard CRNP [address] [place] [address] 09/22/2023 2:30 PM EDT Telemedicine [facility], [place] [address] [place] [address] Taylor Schwartz PA-C [address] [place] [address] Kristi Viveros, Community Health It Infrastructure Consultant [address] [place] [address] Health Maintenance Due Date Last Done Comments Alpha-1 Antitrypsin 1958 *ADVANCE DIRECTIVE NOT ON FILE 09/25/2020 Depression Screening 11/12/2020 11/13/2019 COVID-19 Vaccine ( season) 2023 01/24/2021, 10/07/2020 O2 ASSESSMENT COMPLETED IN PAST YEAR FOR COPD 06/23/2024 06/23/2023 DTaP,Tdap,and Td Vaccines (2 - Td or Tdap) 10/21/2027 10/20/2017 LUNG CANCER SCREENING - USE SMARTSET [id number] Completed 06/23/2017 Pneumococcal Vaccine: 65+ Years Completed [...] filedocumented as of this encounter Care Teams Boat Dock Operator Relationship Specialty Start Date End Date Kavya Dillard CRNP [address] [place] [address] PCP - General Nurse Practitioner 12/31/20 documented as of this encounter
--- OUTSIDE RECORDS SUMMARY | 2023-09-24 08:47 | External Medical Summary | Summary of Care ---
Author Name Unknown Organization [facility] Address [address] [place] [address] Phone [phone] Care Team Providers Care Area Development Manager Name Role Phone Kavya Dillardlle GARRETT Primary Care Provider Reason for Visit * Reason Onset Date Comments [facility]: Maintenance 07/06/2023 Encounter Details Date Type Department Care Team (Late st Contact Info) Description 07/06/2023 Telephone [facility] [address] [facility] [place] [phone] Region, Nurse [address] [place] [address] [facility]: Maintenance Allergies No known [...] MORNING 62 Each 5 01/22/2023 Active Ipratropium [place] 0.02 % Inhalation Solution (Atrovent)Indication s:Stage 3 severe COPD by GOLD classification ([facility]) USE 1 VIAL IN NEBULIZER [...] COPD, group D, by GOLD 2017 classification ([facility]) Inhale 2 Puffs by mouth every 4 hours as needed for Wheezing. Brand necessary 54 g 3 05/20/2023 Active Thiamine HCl 100 MG Oral Tablet (vitamin B-1) TAKE 1 TABLET BY MOUTH EVERY DAY 90 Tablet 3 06/08/2023 Active Levalbuterol HCl 1.25 MG/3ML Inhalation Nebulization Solution (Xopenex)Indications :Chronic obstructive pulmonary disease, unspecified ([facility]) INHALE 1 AMPULE VIA [...] encounter Miscellaneous Notes * Telephone Encounter - Tiffany Jean RN - 07/06/2023 3:27 PM EST Received call from Uday with [facility] mobile x-ray who is calling to confirm that the cxr report from today was received. Notified Uday that the report is scanned into the chart. Tiffany RAYA, RN [facility] Intake Triage Coordinator [phone] documented in this encounter Plan of Treatment Upcoming Encounters Date Type Department Care Team (Late st Contact Info) Description 08/24/2023 3:00 PM EDT Office Visit Family Practice [facility] [address] [place] [address] Kavya Dillard CRNP [address] [place] [address] 09/22/2023 2:30 PM EDT Telemedicine [facility] [place], [address] [address] Taylor Schwartz PA-Leonila [address] [place] [address] Kristi Viveros, Community Health Media Production Manager [address] [place] [address] Health Maintenance Due Date Last Done Comments Alpha-1 Antitrypsin 1958 *ADVANCE DIRECTIVE NOT ON FILE 09/25/2020 Depression Screening 11/12/2020 11/13/2019 COVID-19 Vaccine ( season) 2023 01/24/2021, 10/07/2020 O2 ASSESSMENT COMPLETED IN PAST YEAR FOR COPD 06/23/2024 06/23/2023 DTaP,Tdap,and Td Vaccines (2 - Td or Tdap) 10/21/2027 10/20/2017 LUNG CANCER SCREENING - USE SMARTSET [id number] Completed 06/23/2017 Pneumococcal Vaccine: 65+ Years Completed [...] filedocumented as of this encounter Care Teams Area Development Manager Relationship Specialty Start Date End Date Kavya Dillard CRNP [address] [place] [address] PCP - General Nurse Practitioner 12/31/20 documented as of this encounter
--- OUTSIDE RECORDS SUMMARY | 2023-09-24 08:47 | External Medical Summary | Summary of Care ---
Author Name Unknown Organization [facility] Address [address] [place] [address] Phone [phone] Care Team Providers Care Contract Administration Manager Name Role Phone Kavya Dillard GARRETT Primary Care Provider Reason for Visit * Reason Comments [facility]: Telehealth Encounter Details Date Type Department Care Team (Late st Contact Info) Description 06/23/2023 2:30 PM EST Telemedicine [facility] [place] [address] [place] [address] Taylor Schwartz PA-C [address] [place] [address] Kristi Viveros, Community Health Chlorinator [address], [place] [id number] COPD, group D, by GOLD 2017 classification ([facility])*; Chronic respiratory failure with hypoxia, on home O2 therapy ; Recurrent colitis due to Clostridioides difficile Allergies No known active allergiesdocumented as of this encounter (statuses as of 06/23/2023) Medications Medication Sig Dispensed Refills Start Date [...] MORNING 60 Each 5 01/22/2023 Active Ipratropium [place] 0.02 % Inhalation Solution (Atrovent)Indication s:Stage 3 [...] failure with hypoxia, on home O2 therapy TAKE 1 TABLET BY MOUTH IN THE [...] classification ([facility]) Inhale 2 Puffs by mouth every 4 hours as needed for Wheezing. Brand necessary 54 g 3 05/20/2023 Active Thiamine HCl 100 MG Oral Tablet (vitamin B-1) TAKE 1 TABLET BY MOUTH EVERY DAY 90 Tablet 3 06/08/2023 Active Levalbuterol HCl 1.25 MG/3ML Inhalation Nebulization Solution (Xopenex)Indications :Chronic obstructive pulmonary disease, unspecified ([facility]) INHALE 1 AMPULE VIA NEBULIZER 3 TIMES A DAY. 810 mL 1 06/08/2023 Active predniSONE 10 MG Oral Tablet (Deltasone) Take 5 tabs for 2 days, 4 tabs for 2 days, 3 tabs for 2 days, 2 tabs for 2 days 1 tab for 2 days 30 Tablet 0 06/16/2023 Active Doxycycline Hyclate 100 MG Oral Capsule Take 1 Capsule by mouth in the morning and 1 Capsule before bedtime. Do all this for 10 days. Until gone.. 20 Capsule 0 06/16/2023 Active documented as of this encounter (statuses as of 06/23/2023) Active Problems Problem Noted Date Diagnosed Date [...] as of this encounter (statuses as of 06/23/2023) Resolved Problems Problem Noted Date Diagnosed Date [...] as of this encounter (statuses as of 06/23/2023) Immunizations Name Administration Dates Next Due COVID-19 [...] Sign Reading Time Taken Comments Blood Pressure 120/60 06/23/2023 2:40 PM EST Pulse 56 06/23/2023 2:40 PM EST Temperature 36.5 C (97.7 F) 06/23/2023 2:40 PM ES T Respiratory Rate - - Oxygen Saturation 98% 06/23/2023 2:40 PM EST Inhaled Oxygen Concentration - - Weight - - Height - - Body Mass Index - - documented in this encounter Progress Notes * Kristi Viveros Community Health Chlorinator - 06/23/2023 2:39 PM EST Telemedicine visit: Yes Patient location: HOME. I was not in a hospital or clinic location. After connecting through televideo, patient was verified with two unique identifiers. Patient (or authorized legal customer operations representative) was then informed that this was a Telemedicine visit and being conducted confidentially over secure lines. Methods to assure confidentiality were taken. Patient acknowledged consent and understanding of privacy and security of the Telemedicine visit. The patient agreed to participate. Community Health Chlorinator (CATHY) documentation: CATHY facilitated telehealth visit with provider Flora Arora * Taylor Schwartz PA-C - 06/23/2023 2:30 PM EST [facility] Provider Telemedicine Visit Date: 06/23/2023 Time: 12:33 PM Assessment/Plan: 1. COPD, group D, by GOLD 2017 classification ([facility]) Seeing pulmonology next month Continue inhalers and neb treatment Currently finishing rescue kit 2. Chronic respiratory failure with hypoxia, on home O2 therapy On 3 liters of oxygen 3. Recurrent colitis due to Clostridioides difficile Taking oral vancomycin daily Follow up plan: Patient is scheduled to see Pulmonology next month and PCP following month. I will see him in September but advised to reach out with any acute concerns. He declined humidification for oxygen. Advised to try saline nasal flush to help with sinus symptoms and get vaporizer to have near him when sleeping. A total of 40 minutes was spent face to face via video-based telemedicine. Subjective Patient location: HOME. I was not in a hospital or clinic location. After connecting through [employer], patient was verified with two unique identifiers. Patient (or authorized legal customer operations representative) was then informed that this was a Telemedicine visit and being conducted confidentially over secure lines. Methods to assure confidentiality were taken. Patient acknowledged consent and understanding of privacy and security of the Telemedicine visit. The patient agreed to participate. Reason for Visit: Follow-Up Current Concerns: Jer Abreu Jr. is a 82 year old male seen today for a [facility] Telemedicine Provider Visit. Date of last known acute care visit: 05/20/23 with PCP Reason for last known acute care visit: Patient was admitted to [facility] from 03/24-03/27 with pneumothorax secondary to ruptured bleb. He was advised to follow up with thoracic surgery as outpatient but decided after discharge he doesn't wantto have surgery in the future. He would like to remain at home and be comfortable. He saw PCP last month for COPD flare vs viral syndrome. He is currently completing rescue kit. Today's concerns are: Patient states he is doing ok. He still is coughing up green sputum that clears throughout the day.He has sinus pressure on the right side still. No fever/chills. He gets SOB and XIAO with minimal exertion at baseline. He is maintaining on 3 liters of oxygen. He gets occasional sharp chest pain like he had with the pneumothorax but they go away quickly. Appetite has been good. Weight is staying steady around 120's. Bowels are improved and diarrhea has been manageable. No changes in urinary habits. Patient states mentally he is doing well and has no depression symptoms. ROS: See HPI Social History Socioeconomic History Marital status: Number of children: 6 Tobacco Use Smoking status: Former Packs/day: 2.00 [...] use: No Sexual activity: Yes Partners: Female Social Determinants of Health Food Insecurity: No Food Insecurity (09/10/2022) Hunger Vital Sign Worried About Running Out of Food in the Last Year: Never true Ran Out of Food in the Last Year: Never true Objective Physical Exam: BP 120/60 (BP Site: Left Arm, BP Position: Sitting, BP Cuff Size: Regular) | Pulse 56 | Temp 36.5 C (97.7 F) (Infrared ) | SpO2 98% Previous Wts: Wt Readings from Last 5 Encounters: 05/20/23 55.8 kg (123 lb 1.6 oz) 04/01/23 54.3 kg (119 lb 9.6 oz) 10/28/22 51.7 kg (114 lb) 02/10/22 46.7 kg (103 lb) 01/28/22 46.3 kg (102 lb) Previous BPs: BP Readings from Last 5 Encounters: 06/23/23 120/60 05/20/23 116/52 04/19/23 120/60 04/01/23 118/60 03/09/23 100/80 Physical Exam Constitutional: General: He is not in acute distress. Comments: Chronically ill appearing HENT: Head: Normocephalic and atraumatic. Nose: Nose normal. Mouth/Throat: Pharynx: Oropharynx is clear. Eyes: Extraocular Movements: Extraocular movements intact. Conjunctiva/sclera: Conjunctivae normal. Cardiovascular: Rate and Rhythm: Normal rate and regular rhythm. Pulmonary: Effort: Pulmonary effort is normal. No respiratory distress. Breath sounds: Normal breath sounds. Comments: Decreased breath sounds at the bases bilaterally Neurological: General: No [...] 02/04/2023 08:36 AM No results found for: "TRANSFERRIN - [facility]" Lab Results Component Value Date/Time VITAMIN B12 - [facility] 279 08/30/2006 11:56 AM VITAMIN B12 - [facility] NORMAL 08/30/2006 11:56 AM Chemistry/Renal Lab Results Component Value Date/Time SODIUM - [facility] 146 04/01/2023 03:49 PM SODIUM - [facility] 141 02/04/2023 08:36 AM SODIUM - [facility] 138 06/18/2017 09:59 AM SODIUM - [facility] 133 (L) 10/01/2016 04:17 PM Lab Results Component Value Date/Time POTASSIUM - [facility] 3.6 04/01/2023 03:49 PM POTASSIUM - [facility] 4.4 02/04/2023 08:36 AM POTASSIUM - [facility] 3.8 06/18/2017 09:59 AM POTASSIUM - [facility] 4.5 10/01/2016 04:17 PM No results found for: "PHOSPHORUS - [facility]" Lab Results Component Value Date/Time MAGNESIUM - [facility] 2.0 04/01/2023 03:49 PM MAGNESIUM - [facility] 1.9 08/31/2021 05:27 AM MAGNESIUM - [facility] 1.8 07/15/2005 05:06 PM Lab Results Component Value Date/Time BUN - [facility] 15 04/01/2023 03:49 PM BUN - [facility] 14 02/04/2023 08:36 AM BUN - [facility] 24 (H) 07/08/2022 05:30 AM BUN - [facility] 11 06/18/2017 09:59 AM BUN - [facility] 6 10/01/2016 04:17 PM BUN - [facility] 16 02/17/2008 03:12 PM Lab Results Component Value Date/Time CREATININE - [facility] 1.0 04/01/2023 03:49 PM CREATININE - [facility] 1.0 02/04/2023 08:36 AM CREATININE - [facility] 1.0 07/08/2022 05:30 AM CREATININE - [facility] 1.1 06/18/2017 09:59 AM CREATININE - [facility] 0.8 10/01/2016 04:17 PM CREATININE - [facility] 0.8 02/17/2008 03:12 PM Lab Results Component Value Date/Time ESTIMATED GLOMERULAR FILTRATION RATE - [facility] 77 04/01/2023 03:49 PM ESTIMATED GLOMERULAR FILTRATION RATE - [facility] 73 [...] 07/15/2005 05:06 PM No results found for: "PTH - [facility]" Liver Lab Results Component Value Date/Time AST [...] 02/04/2023 08:36 AM BILIRUBIN, TOTAL - [facility] 0.3 02/06/2022 04:07 PM BILIRUBIN, TOTAL - [facility] 0.6 02/17/2008 03:12 PM BILIRUBIN, TOTAL - [facility] 0.4 08/30/2006 11:56 AM Cardiac No results found for: "PRO BNP" Lab Results Component Value Date/Time LEFT VENTRICULAR EJECTION FRACTION 65 01/20/2021 04:01 PM Lab Results Component Value Date/Time HDL CHOLESTEROL - [facility] 46 02/17/2008 03:12 PM No results found for: "NON-HDL CHOLESTEROL - [facility]" Endocrine Lab Results Component Value Date/Time HEMOGLOBIN A1C - [facility] 5.7 08/30/2006 11:56 AM HEMOGLOBIN A1C - [facility] 5.6 07/15/2005 05:06 PM No results found for: "ESTIMATED AVERAGE GLUCOSE - [facility]" Lab Results Component Value Date/Time TSH - [facility] 0.77 12/26/2020 04:03 PM TSH - [facility] 1.06 08/30/2006 11:56 AM TSH - [facility] 0.97 07/15/2005 05:06 PM No results found for: "T4", "T4, FREE - [facility]" Medication Review: Current Outpatient Medications Medication Sig [...] by mouth in the morning. Florastor . Vitamin B-12 100 MCG Oral Tablet (vitamin B-12) TAKE 1 TABLET BY MOUTH DAILY 90 Tablet 3 guaiFENesin 200 MG Oral Tablet TAKE 1 TABLET BY MOUTH EVERY 6 HOURS NEEDED FOR CONGESTION FOR 4 DAYS (Patient not taking: Reported on 08/20/2022) Potassium Chloride ER 20 MEQ Oral Tablet Extended Release TAKE 1 TABLET BY MOUTH EVERY DAY IN THE MORNING 90 Tablet 3 Vancomycin HCl 125 MG Oral Capsule (Vancocin) 1 CAP DAILY UNTIL FECAL TRANSPLANT. 90 Capsule 1 Trelegy Ellipta 100-62.5-25 MCG/ACT Aerosol Powder Breath Activated (Hlcpykcodit-Xmosgcettdor-Ikdyslrsst) INHALE 1 PUFF BY MOUTH IN THE MORNING 60 Each 5 Ipratropium [place] 0.02 % Inhalation Solution (Atrovent) USE 1 VIAL IN NEBULIZER 3 TIMES DAILY FORSEVERE CHRONIC OBSTRUCTIVE PULMONARY DISEASE 250 mL 4 Ferrous Sulfate 325 (65 Fe) MG Oral Tablet (Feosol) Take 1 Tablet by mouth in the morning and 1 Tablet before bedtime. 60 Tablet 6 Magnesium Chloride 64 MG Oral Tablet Delayed Release (Mag-64) Take 1 Tablet by mouth in the morning. 180 Tablet 1 Folic Acid 1 MG Oral Tablet TAKE 1 TABLET BY MOUTH IN THE MORNING 90 Tablet 1 Omeprazole 40 MG Oral Capsule Delayed Release (PriLOSEC) TAKE 1 CAPSULE BY MOUTH EVERY DAY 1 HOUR BEFORE THE FIRST MEAL OF THE DAY 90 Capsule 1 Famotidine 20 MG Oral Tablet (Pepcid) TAKE BY MOUTH 1 TABLET NEEDED BEFORE BEDTIME FOR HEARTBURN. 90 Tablet 3 Roflumilast 500 MCG Oral Tablet (Daliresp) Take 1 Tablet by mouth in the morning. 180 Tablet 4 Ventolin HFA 108 (90 Base) MCG/ACT Inhalation Aerosol Solution Inhale 2 Puffs by mouth every 4 hours as needed for Wheezing. Brand necessary 54 g 3 Thiamine HCl 100 MG Oral Tablet (vitamin B-1) TAKE 1 TABLET BY MOUTH EVERY DAY 90 Tablet 3 Levalbuterol HCl 1.25 MG/3ML Inhalation Nebulization Solution (Xopenex) INHALE 1 AMPULE VIA NEBULIZER 3 TIMES A DAY. 810 mL 1 predniSONE 10 MG Oral Tablet (Deltasone) Take 5 tabs for 2 days, 4 tabs for 2 days, 3 tabs for 2 days, 2 tabs for 2 days 1 tab for 2 days 30 Tablet 0 Doxycycline Hyclate 100 MG Oral Capsule Take 1 Capsule by mouth in the morning and 1 Capsule beforebedtime. Do all this for 10 days. Until gone.. 20 Capsule 0 No current facility-administered medications for this visit. Mobility Evaluation: MACH10 Assessment: Assistive Devices Used in the Home: Walker (standard or rollator) Manual Wheelchair Recent Falls: Falls in the last 6 months: No SDoH: DME (Durable Medical Equipment) needs Vapor Coater Services / Assistance with ADLs and Self-Care Routine Transportation Urgent Transportation Social Isolation Taylor Ruiz PA-C 12:33 PM *Communication sent to PCP (via autofax if [facility]), Population Health Care Team members, relevant Specialty Care Physicians* documented in this encounter Plan of Treatment Upcoming Encounters Date Type Department Care Team (Late st Contact Info) Description 08/03/2023 2:20 PM EST Office Visit Pulmonary Medicine, [facility] [address] [place] [address] Uday Jones DO [address] [place] [address] 08/24/2023 3:00 PM EDT Office Visit Family Practice [facility] [address] [place] [address] Kavya Dillard CRNP [address] [place] [address] 09/22/2023 2:30 PM EDT Telemedicine [facility] [place] [address] [place] [address] Taylor Schwartz PA-C [address] [place] [address] Kristi Viveros, Community Health Chlorinator [address] [place] [address] Health Maintenance Due Date Last Done Comments Alpha-1 Antitrypsin 1958 *ADVANCE DIRECTIVE NOT ON FILE 09/25/2020 Depression Screening 11/12/2020 11/13/2019 COVID-19 Vaccine ( season) 2023 01/24/2021, 10/07/2020 O2 ASSESSMENT COMPLETED IN PAST YEAR FOR COPD 05/20/2024 05/20/2023 DTaP,Tdap,and Td Vaccines (2 - Td or Tdap) 10/21/2027 10/20/2017 LUNG CANCER SCREENING - USE SMARTSET [id number] Completed 06/23/2017 Pneumococcal Vaccine: 65+ Years Completed [...] failure with hypoxia, on home O2 therapy Recurrent colitis due to Clostridioides difficile documented in this encounter Care Teams Contract Administration Manager Relationship Specialty Start Date End Date Kavya Dillard CRNP [address] [place] [address] PCP - General Nurse Practitioner 12/31/20 documented as of this encounter
--- OUTSIDE RECORDS SUMMARY | 2023-09-24 08:47 | External Medical Summary | Summary of Care ---
Author Name Unknown Organization [facility] Address [address] [place] [address] Phone [phone] Care Team Providers Care Amphibious Operations Officer Name Role Phone Kavya Dillard GARRETT Primary Care Provider Reason for Visit * Reason Comments [facility]: Telehealth Encounter Details Date Type Department Care Team (Late st Contact Info) Description 06/23/2023 2:30 PM EST Telemedicine [facility], [place] [address] [place] [address] Taylor Schwartz PA-C [address] [place] [address] Kristi Viveros, Community Health [employer] [address] [place], [place] [id number] COPD, group D, by GOLD 2017 classification ([facility])*; Chronic respiratory failure with hypoxia, on home [...] [place] [employer] Indications: Inc to 4LPM with ambulation/exerti on [...] MORNING 60 Each 5 01/22/2023 Active Ipratropium [place] 0.02 % Inhalation Solution (Atrovent)Indication s:Stage 3 [...] D, by GOLD 2017 classification ([facility]) Inhale 2 Puffs by mouth every 4 hours as needed for Wheezing. Brand necessary 54 g 3 05/20/2023 Active Thiamine HCl 100 MG Oral Tablet (vitamin B-1) TAKE 1 TABLET BY MOUTH EVERY DAY 90 Tablet 3 06/08/2023 Active Levalbuterol HCl 1.25 MG/3ML Inhalation Nebulization Solution (Xopenex)Indications :Chronic obstructive pulmonary disease, unspecified ([facility]) INHALE 1 AMPULE VIA NEBULIZER 3 TIMES [...] Progress Notes * Kristi Viveros Community Health [employer] - 06/23/2023 2:39 PM EST Telemedicine visit: Yes Patient location: HOME. I was not in a hospital or clinic location. After connecting through televideo, patient was verified with two unique identifiers. Patient (or authorized legal sales and service representative) was then informed that this was a Telemedicine visit and being conducted confidentially over secure lines. Methods to assure confidentiality were taken. Patient acknowledged consent and understanding of privacy and security of the Telemedicine visit. The patient agreed to participate. Community Health [employer] (CATHY) documentation: CATHY facilitated telehealth visit with provider Flora Arora Electronically signed by Kristi Viveros Community Health [employer] at 06/23/2023 3:46 PM EST * Taylor Schwartz PA-C - 06/23/2023 2:30 PM EST [facility] Provider Telemedicine Visit Date: 06/23/2023 Time: 12:33 PM Assessment/Plan: 1. COPD, group D, by GOLD 2017 classification ([facility]) Seeing pulmonology next month Continue inhalers and [...] hospital or clinic location. After connecting through [employer], patient was verified with two unique identifiers. Patient (or authorized legal sales and service representative) was then informed that this was a Telemedicine visit and being conducted confidentially over secure lines. Methods to assure confidentiality were taken. Patient acknowledged consent and understanding of privacy and security of the Telemedicine visit. The patient agreed to participate. Reason for Visit: Follow-Up Current Concerns: Jer Abreu Jr. is a 82 year old male seen today for a [facility] Telemedicine Provider Visit. Date of last known acute care visit: 05/20/23 with PCP Reason for last known acute care visit: Patient was admitted to [facility] from 03/24-03/27 with pneumothorax secondary to ruptured [...] [place] [employer] Indications: Inc to 4LPM with ambulation/exertion 1 [...] Ellipta 100-62.5-25 MCG/ACT Aerosol Powder Breath Activated (Yzoimezwyfp-Urmciqmaeacw-Qzbtmnzkcj) INHALE 1 PUFF BY MOUTH IN THE MORNING 60 Each 5 Ipratropium [place] 0.02 % Inhalation Solution (Atrovent) USE 1 [...] No SDoH: DME (Durable Medical Equipment) needs Cylinder Machine Operator Pulp Drier Services / Assistance with ADLs and Self-Care Routine Transportation Urgent Transportation Social Isolation Taylor Ruiz PA-C 12:33 PM *Communication sent to PCP (via autofax if [facility]), Population Health Care Team members, relevant Specialty Care Physicians* documented in this encounter Plan of Treatment Upcoming Encounters Date Type Department Care Team (Late st Contact Info) Description 08/03/2023 2:20 PM EST Office Visit Pulmonary Medicine, [facility] [address] [place] [address] Uday Jones DO [address] [place] [address] 08/24/2023 3:00 PM EDT Office Visit Family Practice [facility] [address] [place] [address] Kavya Dillard CRNP [address] [place] [address] 09/22/2023 2:30 PM EDT Telemedicine [facility], [place] [address] [place] [address] Taylor Schwartz PA-C [address] [place] [address] Kristi Viveros, Community Health [employer] [address] [place] [address] Health Maintenance Due Date Last Done Comments Alpha-1 Antitrypsin 1958 *ADVANCE DIRECTIVE NOT ON FILE 09/25/2020 Depression Screening 11/12/2020 11/13/2019 COVID-19 Vaccine ( season) 2023 01/24/2021, 10/07/2020 O2 ASSESSMENT COMPLETED IN PAST YEAR FOR COPD 05/20/2024 05/20/2023 DTaP,Tdap,and Td Vaccines (2 - Td or Tdap) 10/21/2027 10/20/2017 LUNG CANCER SCREENING - USE SMARTSET [id number] Completed 06/23/2017 Pneumococcal Vaccine: 65+ Years Completed [...] difficile documented in this encounter Care Teams Amphibious Operations Officer Relationship Specialty Start Date End Date Kavya Dillard CRNP [address] [place] [address] PCP - General Nurse Practitioner 12/31/20 documented as of this encounter
--- OUTSIDE RECORDS SUMMARY | 2023-09-24 08:47 | External Medical Summary | Summary of Care ---
Author Name Unknown Organization [facility] Address [address] [place] [address] Phone [phone] Care Team Providers Care Logistics And Planning Manager Name Role Phone Kavya Dillardlle GARRETT Primary Care Provider Reason for Visit * Reason Onset Date Comments Information 07/05/2023 Encounter Details Date Type Department Care Team (Late st Contact Info) Description 07/05/2023 Telephone [facility], [place] [address] [place] [address] Services, Scheduling [address] [place] [address] Information (//) Allergies No known active allergiesdocumented as of this encounter (statuses as of 07/05/2023) Medications Medication Sig Dispensed Refills Start Date End Date Status acetaminophen (TYLENOL) 500 MG Tablet Take 1 Tablet by mouth every 4 hours as needed for Pain. 0 11/18/2017 Active Multiple Vitamins-Minerals (MULTIVITAMIN ADULTS) TABS Take by mouth daily. 0 Active oxygen IN GASIndications:Inc to 4LPM with ambulation/exertion 2.5 lpm at rest 3 LPM continuous oxygen with exertion DME: [facility] Indications: Inc to [...] MORNING 60 Each 5 01/22/2023 Active Ipratropium [place] 0.02 % Inhalation Solution (Atrovent)Indication s:Stage 3 severe COPD by GOLD classification ([facility]) USE 1 VIAL IN NEBULIZER [...] [facility]) TAKE 1 TABLET BY MOUTH IN [...] GOLD 2017 classification ([facility]) Inhale 2 Puffs by mouth every [...] 2 days 30 Tablet 0 06/16/2023 Active documented as of this encounter (statuses as of 07/05/2023) Active Problems Problem Noted Date Diagnosed Date [...] as of this encounter (statuses as of 07/05/2023) Resolved Problems Problem Noted Date Diagnosed Date [...] as of this encounter (statuses as of 07/05/2023) Immunizations Name Administration Dates Next Due COVID-19 [...] encounter Miscellaneous Notes * Telephone Encounter - Dong Elizondo OSA - 07/05/2023 10:54 AM EST Call to Not iT, ordered cxr and faxed to [phone], they will be out this pm, claim # [id number] documented in this encounter Plan of Treatment Upcoming Encounters Date Type Department Care Team (Late st Contact Info) Description 08/03/2023 2:20 PM EST Office Visit Pulmonary Medicine, [facility] [address] [place] [address] Uday Jones, DO [address] [place] [address] 08/24/2023 3:00 PM EDT Office Visit Family Practice [facility] [address] [place] [address] Kavya Dillard CRNP [address] [place] [address] 09/22/2023 2:30 PM EDT Telemedicine [facility], [place] [address] [place] [address] Taylor Schwartz PA-C [address] [place] [address] Kristi Viveros, Community Health Telephone Order Clerk [address] [place] [address] Health Maintenance Due Date Last Done Comments Alpha-1 Antitrypsin 1958 *ADVANCE DIRECTIVE NOT ON FILE 09/25/2020 Depression Screening 11/12/2020 11/13/2019 COVID-19 Vaccine (3 - 2022-24 season) 2023 01/24/2021, 10/07/2020 O2 ASSESSMENT COMPLETED IN PAST YEAR FOR COPD 06/23/2024 06/23/2023 DTaP,Tdap,and Td Vaccines (2 - Td or Tdap) 10/21/2027 10/20/2017 LUNG CANCER SCREENING - USE SMARTSET [id number] Completed 06/23/2017 Pneumococcal Vaccine: 65+ Years Completed [...] as of this encounter Care Teams Logistics And Planning Manager Relationship Specialty Start Date End Date Kavya Dillard CRNP [address] [place] [address] PCP - General Nurse Practitioner 12/31/20 documented as of this encounter
--- OUTSIDE RECORDS SUMMARY | 2023-09-24 08:47 | External Medical Summary | Summary of Care ---
Author Name Unknown Organization [facility] Address [address] [place] [address] Phone [phone] Care Team Providers Care Cotton Grower Name Role Phone Kavya Dillardlle GARRETT Primary Care Provider Reason for Referral * Evaluate & Treat - Unlimited Visits (Within 10 days (routine)) - Authorized Specialty Diagnoses / Procedures Referred By Nicole cisse Referred To Contact Hospice and Palliative Medicine / Palliative Medicine Diagnoses Chronic respiratory failure with hypoxia, on home O2 therapy (HCC) COPD, group D, by GOLD 2017 classification ([facility]) Taylor Schwartz PA-C [address] [place] [address] Referral ID Status Reason Start Date Expiration Date Visits Requested Visits Authorized [id number] Authorized Specialty Services Required 07/05/2023 999 999 Question Answer Referral Priority Within 10 days (routine) Where should this appointment be scheduled? [facility] Reason for Referral: COPD Palliative Medicine To Address: Pain & Symptom Management Is this referral for [facility] Palliative service? (P Insurance Only) No Encounter Details Date Type Department Care Team (Late st Contact Info) Description 07/05/2023 Orders Only [facility], [place] [address] [place] [address] Taylor Schwartz PA-C [address] [place] [address] Chronic respiratory failure with hypoxia, on home O2 therapy ([facility])*; COPD, group D, by GOLD 2017 classification ([facility]); SOB (shortness of breath) Allergies No known [...] MORNING 60 Each 5 01/22/2023 Active Ipratropium [place] 0.02 % Inhalation Solution (Atrovent)Indication s:Stage 3 [...] Solution (Xopenex)Indications :Chronic obstructive pulmonary disease, unspecified ([facility]) INHALE 1 AMPULE [...] 2:20 PM EST Office Visit Pulmonary Medicine, [facility] [address] [place] [address] Uday Jones, DO [address] [facility] [place] [address] 08/24/2023 3:00 PM EDT Office Visit Family Practice [facility] [address] [place] [address] Kavya Dillard CRNP [address] [place] [address] 09/22/2023 2:30 PM EDT Telemedicine [facility], [place] [address] [place] [address] Taylor Schwartz PA-C [address] [place] [address] Kristi Viveros, Community Health Integrity Engineer [address] [place] [address] Scheduled Orders Name Type Priority Associated Diagnoses Orde r Schedule XR CHEST 2 VIEWS Medical Imaging Routine SOB (shortness of breath) Ordered: 07/05/2023 Scheduled Referrals Name Type Priority Associated Diagnoses Orde r Schedule PALLIATIVE CARE REFERRAL OP Referral Within 10 days (routine) Chronic respiratory failure with hypoxia, on home O2 therapy (HCC) COPD, group D, by GOLD 2017 classification (HCC) Ordered: 07/05/2023 Health Maintenance Due Date Last Done Comments Alpha-1 Antitrypsin 1958 *ADVANCE DIRECTIVE NOT ON FILE 09/25/2020 Depression Screening 11/12/2020 11/13/2019 COVID-19 Vaccine ( season) 2023 01/24/2021, 10/07/2020 O2 ASSESSMENT COMPLETED IN PAST YEAR FOR COPD 06/23/2024 06/23/2023 DTaP,Tdap,and Td Vaccines (2 - Td or Tdap) 10/21/2027 10/20/2017 LUNG CANCER SCREENING - USE SMARTSET 15781 Completed 06/23/2017 Pneumococcal Vaccine: 65+ Years Completed [...] GOLD 2017 classification ([facility]) SOB (shortness of breath) Shortness of breath documented in this encounter Care Teams Cotton Grower Relationship Specialty Start Date End Date Kavya Dillard CRNP [address] [place] [address] PCP - General Nurse Practitioner 12/31/20 documented as of this encounter
--- OUTSIDE RECORDS SUMMARY | 2023-09-24 08:48 | External Medical Summary | Summary of Care ---
Author Name Unknown Organization [facility] Address [address] [place] [address] Phone [phone] Care Team Providers Care Superintendent Seed Mill Name Role Phone Kavya Dillard Primary Care Provider Reason for Visit * Reason Onset Date Comments Test Results 05/23/2023 Unexpected or In determinate Result Encounter Details Date Type Department Care Team (Late st Contact Info) Description 05/23/2023 Telephone [address] [place] [address] aKvya Dillard CRNP [address] [place] [address] Test Results ( Unexpected or Indeterminate... Allergies No known active allergiesdocumented as of this encounter (statuses as of 06/04/2023) Medications Medication Sig Dispensed Refills Start Date End Date Status acetaminophen (TYLENOL) 500 MG Tablet Take 1 Tablet by mouth every 4 hours as needed for Pain. 0 11/18/2017 Active Multiple Vitamins-Minerals (MULTIVITAMIN ADULTS) TABS Take by mouth daily. 0 Active oxygen IN GASIndications:Inc to 4LPM with ambulation/exertion 2.5 lpm at rest 3 LPM continuous oxygen with exertion DME: [facility] Indications: Inc to 4LPM with ambulation/exerti on [...] MORNING 60 Each 5 01/22/2023 Active Ipratropium [place] 0.02 % Inhalation Solution (Atrovent)Indication s:Stage 3 severe COPD by GOLD classification ([facility]) USE 1 VIAL IN NEBULIZER 3 TIMES DAILY FOR SEVERE CHRONIC OBSTRUCTIVE PULMONARY DISEASE 250 mL 4 02/01/2023 Active Levalbuterol HCl 1.25 MG/3ML Inhalation Nebulization Solution (Xopenex)Indications :Chronic obstructive pulmonary disease, unspecified ([facility]) INHALE 1 AMPULE VIA [...] the morning. 180 Tablet 1 04/14/2023 Active Azithromycin 250 MG Oral Tablet (Zithromax Z-Kota) Take two tablets by mouth on first day, then 1 tablet daily until gone 6 Tablet 0 04/19/2023 Active Additional Information Patient not taking.Reported on 05/26/2023 Folic Acid 1 MG Oral TabletIndications:Ch ronic [...] the morning. 180 Tablet 4 05/20/2023 Active Albuterol Sulfate (2.5 MG/3ML) 0.083% Inhalation Nebulization Solution (Proventil) Inhale 1 Vial via nebulizer in the morning and 1 Vial at noon and 1 Vial in the evening and 1 Vial before bedtime. 360 mL 11 05/20/2023 4 Active Ventolin HFA 108 (90 Base) MCG/ACT Inhalation Aerosol SolutionIndications: COPD, group D, by GOLD 2017 classification ([facility]) Inhale 2 Puffs by mouth every 4 hours as needed for Wheezing. Brand necessary 54 g 3 05/20/2023 Active predniSONE 20 MG Oral Tablet (Deltasone) Take 2 Tablets by mouth daily for 3 days, THEN 1 Tablet daily for 5 days, THEN 0.5 Tablets daily for 5 days. 14 Tablet 0 05/20/2023 3 documented as of this encounter (statuses as of 06/04/2023) Active Problems Problem Noted Date Diagnosed Date [...] as of this encounter (statuses as of 06/04/2023) Resolved Problems Problem Noted Date Diagnosed Date [...] as of this encounter (statuses as of 06/04/2023) Immunizations Name Administration Dates Next Due COVID-19 [...] Telephone Encounter - Kavya Dillard CRNP - 06/04/2023 2:33 PM EST No prednisone daily at this point. Randy, MSN, SITE LEAD [facility] * Telephone Encounter - Nisreen Ríos LPN - 06/04/2023 11:19 AM EST Called and spoke with patient. Pt verbalized understanding and stated that he wants to hold off on a repeat CT. Is prednisone to be continued daily? Pt states he feels better with prednisone * Telephone Encounter - Kathya Aranda LPN - 06/03/2023 11:14 AM EST Called pt and left a vm message to call the office. See Gilma's not below. * Telephone Encounter - Kathya Aranda LPN - 05/25/2023 12:25 PM EST Called pt and left a vm message to call the office. See Gilma's not below. * Telephone Encounter - Kavya Dillard CRNP - 05/24/2023 11:47 AM EST Please notify patient that the x ray confirms scaring in the left lung base that was present in March. We can do another CT but this has been present for some time. Recommend continue prednisone. Consider CT in 3 months. How is he doing? Randy, AMBER, GARRETT [facility] * Telephone Encounter - Deisi Calle OSA - 05/23/2023 2:27 PM EST Hello- The radiologist discovered an unexpected or indeterminate finding on Jer Abreu Jr. ([id number]) and asks that you review the following report. Study Type: XR CHEST 2 VIEWS Date of Study: 05/20/2023 IMPRESSION Reticular opacities at the left base, which may reflect chronic interstitial lung disease. Recommend CT thorax for better evaluation. Please respond to this encounter to acknowledge receipt of this message and take responsibility to ensure this report is reviewed. Thank you, JAH Pritchett Client Service [facility] documented in this encounter Plan of Treatment Upcoming Encounters Date Type Department Care Team (Late st Contact Info) Description 06/23/2023 2:30 PM EST Telemedicine [facility] [place], [place] [address] UlyssesTaylor Dickerson PA-C [address] [place] [address] Kristi Viveros, Community Health Water Pollution Control Inspector [address] [place] [address] 08/03/2023 2:20 PM EST Office Visit Pulmonary Medicine, [facility] [address] [facility] [address] Uday Jones DO [address] [place] [address] 08/24/2023 3:00 PM EDT Office Visit Family Practice [facility] [address] [facility] [place] [address] Kavya Dillard CRNP [address] [facility] [address] Health Maintenance Due Date Last Done Comments Alpha-1 Antitrypsin 1958 *ADVANCE DIRECTIVE NOT ON FILE 09/25/2020 Depression Screening 11/12/2020 11/13/2019 COVID-19 Vaccine (3 - 2022- season) 2023 01/24/2021, 10/07/2020 O2 ASSESSMENT COMPLETED IN PAST YEAR FOR COPD 05/20/2024 05/20/2023 DTaP,Tdap,and Td Vaccines (2 - Td or Tdap) 10/21/2027 10/20/2017 LUNG CANCER SCREENING - USE SMARTSET [id number] Completed 06/23/2017 Pneumococcal Vaccine: 65+ Years Completed [...] filedocumented as of this encounter Care Teams Superintendent Seed Mill Relationship Specialty Start Date End Date Kavya Dillard CRNP [address] [place] [address] PCP - General Nurse Practitioner 12/31/20 documented as of this encounter
--- OUTSIDE RECORDS SUMMARY | 2023-09-24 08:48 | External Medical Summary | Summary of Care ---
Author Name Unknown Organization [facility] Address [address] [place] [address] Phone [phone] Care Team Providers Care Petrography Teacher Name Role Phone Kavya Dillard Primary Care Provider Reason for Visit * Reason Onset Date Comments Forms Request 05/21/2023 Keila tinsley Encounter Details Date Type Department Care Team (Late st Contact Info) Description 05/21/2023 Telephone Family Practice [facility] [address] [place] [facility] [place] [address] Kavya [facility]illard CRNP [address] [facility] [address] Forms Request (Keila assistance ) Allergies No known active allergiesdocumented as of this encounter (statuses as of 05/21/2023) Medications Medication Sig Dispensed Refills Start Date [...] MORNING 60 Each 5 01/22/2023 Active Ipratropium [place] 0.02 % Inhalation Solution (Atrovent)Indication s:Stage 3 severe COPD by GOLD classification ([facility]) USE 1 VIAL IN NEBULIZER 3 TIMES DAILY FOR SEVERE CHRONIC OBSTRUCTIVE PULMONARY DISEASE 250 mL 4 02/01/2023 Active Levalbuterol HCl 1.25 MG/3ML Inhalation Nebulization Solution (Xopenex)Indications :Chronic obstructive pulmonary disease, unspecified ([facility]) INHALE 1 AMPULE [...] until gone 6 Tablet 0 04/19/2023 Active Folic Acid 1 MG Oral TabletIndications:Ch [...] the morning. 180 Tablet 4 05/20/2023 Active predniSONE 20 MG Oral Tablet (Deltasone) Take 2 Tablets by mouth daily for 3 days, THEN 1 Tablet daily for 5 days, THEN 0.5 Tablets daily for 5 days. 14 Tablet 0 05/20/2023 3 Active Albuterol Sulfate (2.5 MG/3ML) 0.083% Inhalation Nebulization Solution (Proventil) Inhale 1 Vial via nebulizer in the morning and 1 Vial at noon and 1 Vial in the evening and 1 Vial before bedtime. 360 mL 11 05/20/2023 4 Active Ventolin HFA 108 (90 Base) MCG/ACT Inhalation Aerosol SolutionIndications: COPD, group D, by GOLD 2017 classification (HCC) Inhale 2 Puffs by mouth every 4 hours as needed for Wheezing. Brand necessary 54 g 3 05/20/2023 Active documented as of this encounter (statuses as of 05/21/2023) Active Problems Problem Noted Date Diagnosed Date [...] as of this encounter (statuses as of 05/21/2023) Resolved Problems Problem Noted Date Diagnosed Date [...] as of this encounter (statuses as of 05/21/2023) Immunizations Name Administration Dates Next Due Pneumococcal Conjugate Vacc, 13 Valent (Prevnar) 10/20/2017 Pneumococcal Polysaccharide PPV23 (Pneumovax) Seasonal Influenza, PF, 6 M & above, [...] Telephone Encounter - Kayli Horton RN - 05/21/2023 11:59 AM EST Re[place] fax from [place] pharmaceutical assistance program for daliresp. Form completed, signed by PCP and faxed back with prescription. Successful fax confirmation received. documented in this encounter Plan of Treatment Upcoming Encounters Date Type Department Care Team (Late st Contact Info) Description 06/21/2023 9:30 AM EST [facility] [place] [address] [place] [address] Taylor Schwartz PA-C [address] [place] [address] Kristi Viveros, Community Health Drying Supervisor [address] [place] [address] 08/03/2023 2:20 PM EST Office Visit Pulmonary Medicine, [facility] [address] [place] [address] Uday Jones DO [address] [place] [address] 08/24/2023 3:00 PM EDT Office Visit Family Practice [facility] [address] [place] [address] Kavya Dillard CRNP [address] [place] [address] Health Maintenance Due Date Last Done Comments Alpha-1 Antitrypsin 1958 *ADVANCE DIRECTIVE NOT ON FILE 09/25/2020 Depression Screening 11/12/2020 11/13/2019 COVID-19 Vaccine ( season) 2023 01/24/2021, 10/07/2020 O2 ASSESSMENT COMPLETED IN PAST YEAR FOR COPD 05/20/2024 05/20/2023 DTaP,Tdap,and Td Vaccines (2 - Td or Tdap) 10/21/2027 10/20/2017 LUNG CANCER SCREENING - USE SMARTSET [id number] Completed 06/23/2017 Pneumococcal Vaccine: 65+ Years Completed [...] Infection Onset Date Last Indicated Resolved Time Respiratory Rule-Out 05/20/2023 05/20/2023 023 4:26 AM EST documented as of this encounter Care Teams Petrography Teacher Relationship Specialty Start Date End Date Kavya Dillard CRNP [address] [place] [address] PCP - General Nurse Practitioner 12/31/20 documented as of this encounter
--- OUTSIDE RECORDS SUMMARY | 2023-09-24 08:48 | External Medical Summary | Summary of Care ---
Author Name Unknown Organization [facility] Address [address] [place] [address] Phone [phone] Care Team Providers Care Bag Adjuster Name Role Phone Kavya Dillard Primary Care Provider Reason for Visit * Reason Comments Acute PT HERE FOR COPD FLA RE UP Encounter Details Date Type Department Care Team (Latest Contact Info) Description 05/20/2023 2:40 PM EST Office Visit Family Practice [facility] [address] [facility] [address] Kavya Dillard CRNP [address] [facility] [place] [address] COPD exacerbation (HCC)*; COPD, group D, by GOLD 2017 classification (HCC); Upper respiratory tract infection, unspecified type; Fibrosis of lung (HCC); Chronic respiratory failure with hypoxia, on home O2 therapy Allergies No known active allergiesdocumented as of this encounter (statuses as of 05/20/2023) Medications Medication Sig Dispensed Refills Start Date [...] MORNING 60 Each 5 01/22/2023 Active Ipratropium [place] 0.02 % Inhalation Solution (Atrovent)Indicatio ns:Stage 3 severe COPD by GOLD classification ([facility]) USE 1 VIAL IN NEBULIZER 3 TIMES DAILY FOR SEVERE CHRONIC OBSTRUCTIVE PULMONARY DISEASE 250 mL 4 02/01/2023 Active Levalbuterol HCl 1.25 MG/3ML Inhalation Nebulization Solution (Xopenex)Indication s:Chronic obstructive pulmonary disease, unspecified ([facility]) INHALE 1 AMPULE VIA NEBULIZER 3 [...] 04/19/2023 Active Folic Acid 1 MG Oral TabletIndications:C [...] :COPD, group D, by GOLD 2017 classification ([facility]) Inhale 2 Puffs by mouth every 4 hours as needed for Wheezing. Brand necessary 54 g 3 05/20/2023 Active Roflumilast 500 MCG Oral Tablet (Daliresp) Take 1 Tablet (500 mcg) by mouth in the morning. 180 Tablet 4 05/15/2022 3 Discontinu ed(Refill) Ventolin HFA 108 (90 Base) MCG/ACT Inhalation Aerosol SolutionIndications :COPD, group D, by GOLD 2017 classification ([facility]) INHALE BY MOUTH 2 PUFFS EVERY 4 HOURS NEEDED FOR WHEEZING. BRAND NECESSARY 54 g 3 07/22/2022 3 Discontinu ed(Refill) documented as of this encounter (statuses as of 05/20/2023) Active Problems Problem Noted Date Diagnosed Date [...] as of this encounter (statuses as of 05/20/2023) Resolved Problems Problem Noted Date Diagnosed Date [...] as of this encounter (statuses as of 05/20/2023) Immunizations Name Administration Dates Next Due Pneumococcal [...] Sign Reading Time Taken Comments Blood Pressure 116/52 05/20/2023 3:22 PM EST Pulse 77 05/20/2023 3:22 PM EST Temperature 36.8 C (98.2 F) 05/20/2023 3:22 PM ES T Respiratory Rate 16 05/20/2023 3:22 PM EST Oxygen Saturation 90% 05/20/2023 3:22 PM EST Inhaled Oxygen Concentration - - Weight 55.8 kg (123 lb 1.6 oz) 05/20/2023 3:22 P M EST Height 167.6 cm (5' 6") 05/20/2023 3:22 PM EST Body Mass Index 19.87 05/20/2023 3:22 PM EST documented in this encounter Progress Notes * Kavya Dillard, GARRETT - 05/20/2023 3:31 PM EST URI Family Medicine Visit CC: Chief Complaint Patient presents with Acute PT HERE FOR COPD FLARE UP History of Present Illness: Jer Abreu Jr. is a 82 year old male presenting TODAY WITH ONGOING uri SYMPTOMS. These started 3 weeks. Son with rhinovirus. He stopped prednisone yesterday. Stopped azithromycin yesterday. He is accompanied by his son and daughter in law -fever, t max - -chills -sweats -decreased appetite +tolerating fluids -congestion -loss of taste or smell +runny nose +PND +ear pain right worse than left -sore throat -blurred vision -eye discharge +cough +productive of mucous light green +sob -wheezing -nausea +diarrhea- normal c diff diarrhea -constipation -vomiting +headache Social History Socioeconomic History Marital status: Spouse name: Not on file Number of children: 6 Years of education: Not on file Highest education level: Not on file Occupational History Not on file Tobacco Use Smoking status: Former Packs/day: 2.00 Years: 59.00 Additional pack years: 0.00 Total pack years: 118.00 Types: Cigarettes Start date: 1954 Quit date: 04/07/2016 Years since quittin.1 Smokeless tobacco: Never Tobacco comments: started age [...] Acute exacerbation of COPD with asthma 04/23/2017 [facility] Arthritis Edentulous Gastroesophageal reflux disease [...] REMOVE CATARACT, INSERT LENS PROSTH Right 06/12/2019 [facility] REMOVE CATARACT, INSERT LENS PROSTH Left 06/26/2019 [facility] Outpatient Medications Marked as Taking for the 05/20/23 encounter (Office Visit) with Gilma, Frankie, GARRETT Medication Sig Folic Acid 1 MG Oral Tablet TAKE 1 TABLET BY MOUTH IN THE MORNING Omeprazole 40 MG Oral Capsule Delayed Release (PriLOSEC) TAKE 1 CAPSULE BY MOUTH EVERY DAY 1 HOUR BEFORE THE FIRST MEAL OF THE DAY Azithromycin 250 MG Oral Tablet (Zithromax Z-Kota) Take two tablets by mouth on first day, then 1 tablet daily until gone Magnesium Chloride 64 MG Oral Tablet Delayed Release (Mag-64) Take 1 Tablet by mouth in the morning. Ferrous Sulfate 325 (65 Fe) MG Oral Tablet (Feosol) Take 1 Tablet by mouth in the morning and 1 Tablet before bedtime. Levalbuterol HCl 1.25 MG/3ML Inhalation Nebulization Solution (Xopenex) INHALE 1 AMPULE VIA NEBULIZER 3 TIMES A DAY. Ipratropium [place] 0.02 % Inhalation Solution (Atrovent) USE 1 VIAL IN NEBULIZER 3 TIMES DAILY FORSEVERE CHRONIC OBSTRUCTIVE PULMONARY DISEASE Trelegy Ellipta 100-62.5-25 MCG/ACT Aerosol Powder Breath Activated (Hcqsxascsdt-Zjmxwrvooeiq-Zmvztajpts) INHALE 1 PUFF BY MOUTH IN THE [...] (500 mcg) by mouth in the morning. Saccharomyces boulardii [...] Pneumococcal Polysaccharide PPV23 (Pneumovax) 04/27/2017 Seasonal Influenza, PF, 6 M & above, IM , (FluLaval or Fluzone) 02/28/2018 Seasonal Influenza, Quadrivalent Hd (Fluzone Hd) 04/01/2023 Seasonal Influenza, Split, IIV3, With Preserve, Inj 03/12/2009 Seasonal Influenza, Trivalent, Adjuvanted, 65+ yrs 04/12/2019 TDAP (age 10 and older)(Boostrix) 10/20/2017 Physical Exam: BP 116/52 (BP Site: Left Arm, BP Position: Sitting, BP Cuff Size: Regular) | Pulse 77 | Temp 36.8 C (98.2 F) (Tympanic) | Resp 16 | Ht 1.676 m (5' 6") | Wt 55.8 kg (123 lb 1.6 oz) | SpO2 90% | BMI 19.87 kg/m | BSA 1.61 m Physical Exam Constitutional: Comments: Lean, seated in wheelchair HENT: Head: Normocephalic. Eyes: Pupils: Pupils are equal, round, and reactive to light. Cardiovascular: Rate and Rhythm: Normal rate. Pulmonary: Effort: Pulmonary effort is normal. Breath sounds: Decreased breath sounds present. No wheezing or rhonchi. Musculoskeletal: Cervical back: Normal range of motion. Neurological: Mental Status: He is alert and oriented to person, place, and time. Psychiatric: Mood and Affect: Mood normal. Assessment and Plan: 1. COPD exacerbation (HCC) Acute on chronic Suspected rhinovirus trigger Add prednisone taper S/p azithromycin Check x ray - XR CHEST 2 VIEWS 2. COPD, group D, by GOLD 2017 classification ([facility]) Continue trelegy Increase duoneb to qid Add mucinex - Ventolin HFA 108 (90 Base) MCG/ACT Inhalation Aerosol Solution; Inhale 2 Puffs by mouth every 4 hours as needed for Wheezing. Brand necessary Dispense: 54 g; Refill: 3 3. Upper respiratory tract infection, unspecified type - RESPIRATORY PATHOGEN PANEL, PCR; Future - RESPIRATORY PATHOGEN PANEL, PCR 4. Fibrosis of lung ([facility]) 5. Chronic respiratory failure with hypoxia, on home O2 therapy Requires 2-3 LPM Recommend supportive care including: -Humidifier -Rest -Push fluids -Reviewed pathophysiology of viral URI -Recommend handwashing and covering cough -Reviewed signs and symptoms in which to seek medical care I have advised the patient to call our office incase of any worsening or new symptoms. I spent a total of 40-54 minutes (exact time 40 mins) on the date of service in preparation, delivery, and documentation of the care provided to Jer Abreu Jr. excluding any time spent in the performance of separately billed services. AMBER Padilla, GARRETT [facility] documented in this encounter Plan of Treatment Upcoming Encounters Date Type Department Care Team (Late st Contact Info) Description 06/21/2023 9:30 AM EST Telemedicine [facility], [place] [address] [place] [address] Taylor Schwartz PA-C [address] [facility] [address] Kristi Viveros, Community Health Anthropometrist [address] [place] [address] 08/03/2023 2:20 PM EST Office Visit Pulmonary Medicine, [facility] [address] [place] [address] Uday Jones DO [address] [place] [address] 08/24/2023 3:00 PM EDT Office Visit Family Practice [facility] [address] [place] [address] Kavya Dillard CRNP [address] [place] [address] Pending Results Name Type Priority Associated Diagnoses Date /Time RESPIRATORY PATHOGEN PANEL, PCR Lab Routine Upper respiratory tract infection, unspecified type 05/20/2023 4:01 PM EST XR CHEST 2 VIEWS Medical Imaging Routine COPD exacerbation (HCC) 05/20/2023 4:19 PM EST Scheduled Orders Name Type Priority Associated Diagnoses Orde r Schedule RESPIRATORY PATHOGEN PANEL, PCR Lab Routine Upper respiratory tract infection, unspecified type Expected: 05/20/2023 (Approximate), Expires: 05/19/2024 Health Maintenance Due Date Last Done Comments Alpha-1 Antitrypsin 1958 *ADVANCE DIRECTIVE NOT ON FILE 09/25/2020 Depression Screening 11/12/2020 11/13/2019 COVID-19 Vaccine ( season) 2023 01/24/2021, 10/07/2020 O2 ASSESSMENT COMPLETED IN PAST YEAR FOR COPD 04/19/2024 05/20/2023 DTaP,Tdap,and Td Vaccines (2 - Td or Tdap) 10/21/2027 10/20/2017 LUNG CANCER SCREENING - USE SMARTSET [id number] Completed 06/23/2017 Pneumococcal Vaccine: 65+ Years Completed [...] (HCC)- Primary Obstructive chronic bronchitis with exacerbation COPD, group D, by GOLD 2017 classification (HCC) Upper respiratory tract infection, unspecified type 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
--- OUTSIDE RECORDS SUMMARY | 2023-09-24 08:48 | External Medical Summary | Summary of Care ---
Author Name Unknown Organization [facility] Address [address] [place] [address] Phone [phone] Care Team Providers Care Senior Sustainability Consultant Name Role Phone Kavya Jacinto Primary Care Provider Reason for Visit * Reason Comments eRx-Medication Refill Encounter Details Date Type Department Care Team (Late st Contact Info) Description 06/05/2023 Refill Family Practice [facility] [address] [place] [address] Kavya Jacinto CRNP [address] [place] [address] Chronic obstructive pulmonary disease, unspecified (HCC) Allergies No known active allergiesdocumented as of this encounter (statuses as of 06/08/2023) Medications Medication Sig Dispensed Refills Start Date [...] Nursing Facility Indications: Inc to 4LPM with ambulation/exer tion 1 Each 0 1 Active Saccharomyces boulardii 250 MG Oral Capsule (Florastor) Take 1 Capsule by mouth in the morning. Florastor . 0 Active Vitamin B-12 100 MCG Oral Tablet (vitamin B-12) TAKE 1 TABLET BY MOUTH DAILY 90 Tablet 3 3 Active guaiFENesin 200 MG Oral Tablet [...] MORNING 60 Each 5 3 Active Ipratropium [place] 0.02 % Inhalation Solution (Atrovent)Indicatio ns:Stage 3 severe COPD by GOLD classification ([facility]) USE 1 VIAL IN NEBULIZER [...] the morning. 180 Tablet 1 3 Active Azithromycin 250 MG Oral Tablet (Zithromax Z-Kota) Take two tablets by mouth on first day, then 1 tablet daily until gone 6 Tablet 0 3 Active Additional Information Patient not taking.Reported on 05/26/2023 Folic Acid 1 MG Oral TabletIndications:C hronic [...] the morning. 180 Tablet 4 3 Active Albuterol Sulfate (2.5 MG/3ML) 0.083% Inhalation Nebulization Solution (Proventil) Inhale 1 Vial via nebulizer in the morning and 1 Vial at noon and 1 Vial in the evening and 1 Vial before bedtime. 360 mL 11 3 06/19/19 24 Active Ventolin HFA 108 (90 Base) MCG/ACT Inhalation Aerosol SolutionIndications :COPD, group D, by GOLD 2017 classification ([facility]) Inhale 2 Puffs by mouth [...] A DAY. 810 mL 1 4 Active Thiamine HCl 100 MG Oral Tablet (vitamin B-1) TAKE 1 TABLET BY MOUTH EVERY DAY 90 Tablet 3 3 06/08/19 24 Discontinued Levalbuterol HCl 1.25 MG/3ML Inhalation Nebulization Solution (Xopenex)Indication s:Chronic obstructive pulmonary disease, unspecified (HCC) INHALE 1 AMPULE VIA NEBULIZER 3 TIMES A DAY. 810 mL 1 3 06/08/19 24 Discontinued documented as of this encounter (statuses as of 06/08/2023) Active Problems Problem Noted Date Diagnosed Date [...] as of this encounter (statuses as of 06/08/2023) Resolved Problems Problem Noted Date Diagnosed Date [...] as of this encounter (statuses as of 06/08/2023) Immunizations Name Administration Dates Next Due COVID-19 [...] Telephone Encounter - Kavya Jacinto CRNP - 06/08/2023 12:24 PM EST Signed Prescriptions: Disp Refills Thiamine HCl 100 MG Oral Tablet (vitamin B*90 Tab*3 Sig: TAKE 1 TABLET BY MOUTH EVERY DAY Authorizing Provider: KAVYA JACINTO Levalbuterol HCl 1.25 MG/3ML Inhalation Ne*810 mL 1 Sig: INHALE 1 AMPULE VIA NEBULIZER 3 TIMES A DAY. Authorizing Provider: KAVYA JACINTO Refused Prescriptions: Disp Refills predniSONE 20 MG Oral Tablet (Deltasone) 14 Tab*0 Sig: TAKE 2 TABLETS BY MOUTH DAILY FOR 3 DAYS, 1 DAILY FOR 5 DAYS, THEN 0.5 DAILY FOR 5 DAYS. Refused By: KAVYA JACINTO Reason for Refusal: Course of treatment complete * Telephone Encounter - Ana Bynum LPN - 06/08/2023 10:41 AM ESTPending Prescriptions: Disp Refills predniSONE 20 MG Oral Tablet [Pharmacy Med*14 Tab*0 Sig: TAKE 2 TABLETS BY MOUTH DAILY FOR 3 DAYS, 1 DAILY FOR 5 DAYS, THEN 0.5 DAILY FOR 5 DAYS. Thiamine HCl 100 MG Oral Tablet [Pharmacy *90 Tab*3 Sig: TAKE 1 TABLET BY MOUTH EVERY DAY Levalbuterol HCl 1.25 MG/3ML Inhalation Ne*810 mL 1 Sig: INHALE 1 AMPULE VIA NEBULIZER 3 T IMES A DAY. * Telephone Encounter - Ashli Lincoln - 06/06/2023 8:35 PM ESTPending Prescriptions: Disp Refills predniSONE 20 MG Oral Tablet [Pharmacy Med*14 Tab*0 Sig: TAKE 2TABLETS BY MOUTH DAILY FOR 3 DAYS, 1 DAILY FOR 5 DAYS, THEN 0.5 DAILY FOR 5 DAYS. Thiamine HCl 100 MG Oral Tablet [Pharmacy *90 Tab*3 Sig: TAKE 1 TABLET BY MOUTH EVERY DAY Levalbuterol HCl 1.25 MG/3ML Inhalation Ne*810 mL 1 Sig: INHALE 1 AMPULE VIA NEBULIZER 3 TIMES A DAY. documented in this encounter Plan of Treatment Upcoming Encounters Date Type Department Care Team (Late st Contact Info) Description 06/23/2023 2:30 PM EST Telemedicine [facility], [place] [address] [place] [address] Taylor Schwartz PA-C [address] [place] [address] Kristi Viveros, Community Health Franchise Sales Manager [address] [place] [address] 08/03/2023 2:20 PM EST Office Visit Pulmonary Medicine, [facility] [address] [place] [address] Uday Jones DO [address] [place] [address] 08/24/2023 3:00 PM EDT Office Visit Family Practice [facility] [address] [place] [address] Kavya Jacinto CRNP [address] [facility] [place] [address] Health Maintenance Due Date Last Done Comments Alpha-1 Antitrypsin 1958 *ADVANCE DIRECTIVE NOT ON FILE 09/25/2020 Depression Screening 11/12/2020 11/13/2019 COVID-19 Vaccine ( season) 2023 01/24/2021, 10/07/2020 O2 ASSESSMENT COMPLETED IN PAST YEAR FOR COPD 05/20/2024 05/20/2023 DTaP,Tdap,and Td Vaccines (2 - Td or Tdap) 10/21/2027 10/20/2017 LUNG CANCER SCREENING - USE SMARTSET [id number] Completed 06/23/2017 Pneumococcal Vaccine: 65+ Years Completed [...] (HCC) documented in this encounter Care Teams Senior Sustainability Consultant Relationship Specialty Start Date End Date Kavya Jacinto CRNP [address] [place] [address] PCP - General Nurse Practitioner 12/31/20 documented as of this encounter
--- OUTSIDE RECORDS SUMMARY | 2023-09-24 08:48 | External Medical Summary | Summary of Care ---
Author Name Unknown Organization [facility] Address [address] [place] [address] Phone [phone] Care Team Providers Care Belly Dancer Name Role Phone Kavya Dillardlle GARRETT Primary Care Provider Reason for Visit * Reason Onset Date Comments Appointment 05/26/2023 Encounter Details Date Type Department Care Team (Late st Contact Info) Description 05/26/2023 Telephone [facility], [place] [address] [place] [address] Services, Scheduling [address] [place] [address] Appointment (//) Allergies No known active allergiesdocumented as of this encounter (statuses as of 05/26/2023) Medications Medication Sig Dispensed Refills Start Date End Date Status acetaminophen (TYLENOL) 500 MG Tablet Take 1 Tablet by mouth every 4 hours as needed for Pain. 0 11/18/2017 Active Multiple Vitamins-Minerals (MULTIVITAMIN ADULTS) TABS Take by mouth daily. 0 Active oxygen IN GASIndications:Inc to 4LPM with ambulation/exertion 2.5 lpm at rest 3 LPM continuous oxygen with exertion DME: [facility] Indications: Inc to 4LPM with [...] MORNING 60 Each 5 01/22/2023 Active Ipratropium [place] 0.02 % Inhalation Solution (Atrovent)Indication s:Stage 3 severe COPD by GOLD classification ([facility]) USE 1 VIAL IN NEBULIZER 3 TIMES DAILY FOR SEVERE CHRONIC OBSTRUCTIVE PULMONARY DISEASE 250 mL 4 02/01/2023 Active Levalbuterol HCl 1.25 MG/3ML Inhalation Nebulization Solution (Xopenex)Indications :Chronic obstructive pulmonary disease, unspecified ([facility]) INHALE 1 AMPULE VIA NEBULIZER 3 TIMES [...] D, by GOLD 2017 classification ([facility]) Inhale 2 Puffs by mouth every 4 hours as needed for Wheezing. Brand necessary 54 g 3 05/20/2023 Active documented as of this encounter (statuses as of 05/26/2023) Active Problems Problem Noted Date Diagnosed Date [...] as of this encounter (statuses as of 05/26/2023) Resolved Problems Problem Noted Date Diagnosed Date [...] as of this encounter (statuses as of 05/26/2023) Immunizations Name Administration Dates Next Due Pneumococcal [...] Telephone Encounter - Dong Elizondo OSA - 05/26/2023 2:08 PM EST Call to pt and r/s kaco telemed for 06/23 at 230pm, pt agreeable documented in this encounter Plan of Treatment Upcoming Encounters Date Type Department Care Team (Late st Contact Info) Description 06/23/2023 2:30 PM EST [facility]icine [facility], [place] [address] [place] [address] Taylor Schwartz PA-C [address] [place] [address] Kristi Viveros, Community Health Databases Software Consultant [address] [place] [address] 08/03/2023 2:20 PM EST Office Visit Pulmonary Medicine, [facility] [address] [facility] [place] [address] Uday Jones DO [address] [place] [address] 08/24/2023 3:00 PM EDT Office Visit Family Practice [facility] [address] [facility] [place] [address] Kavya Dillard CRNP [address] [place] [address] Health Maintenance Due Date Last Done Comments Alpha-1 Antitrypsin 1958 *ADVANCE DIRECTIVE NOT ON FILE 09/25/2020 Depression Screening 11/12/2020 11/13/2019 COVID-19 Vaccine ( season) 2023 01/24/2021, 10/07/2020 O2 ASSESSMENT COMPLETED IN PAST YEAR FOR COPD 05/20/2024 05/20/2023 DTaP,Tdap,and Td Vaccines (2 - Td or Tdap) 10/21/2027 10/20/2017 LUNG CANCER SCREENING - USE SMARTSET [id number] Completed 06/23/2017 Pneumococcal Vaccine: 65+ Years Completed [...] filedocumented as of this encounter Care Teams Belly Dancer Relationship Specialty Start Date End Date Kavya Dillard CRNP [address] [place] [address] PCP - General Nurse Practitioner 12/31/20 documented as of this encounter
--- OUTSIDE RECORDS SUMMARY | 2023-09-24 08:48 | External Medical Summary | Summary of Care ---
Author Name Unknown Organization [facility] Address [address] [place] [address] Phone [phone] Care Team Providers Care Mechanical Laboratory Technician Name Role Phone Kavya Dillardlle GARRETT Primary Care Provider Encounter Details Date Type Department Care Team (Late st Contact Info) Description 06/16/2023 Orders Only [facility], [place] [address] [place] [address] Taylor Schwartz PA-C [address] [place], [place] [phone] Allergies No known active allergiesdocumented as of this encounter (statuses as of 06/16/2023) Medications Medication Sig Dispensed Refills Start Date End Date Status acetaminophen (TYLENOL) 500 MG Tablet Take 1 Tablet by mouth every 4 hours as needed for Pain. 0 11/18/2017 Active Multiple Vitamins-Minerals (MULTIVITAMIN ADULTS) TABS Take by mouth daily. 0 Active oxygen IN GASIndications:Inc to 4LPM with ambulation/exertion 2.5 lpm at rest 3 LPM continuous oxygen with exertion DME: [facility] Indications: Inc to 4LPM with ambulation/exert [...] MORNING 60 Each 5 01/22/2023 Active Ipratropium [place] 0.02 % Inhalation Solution (Atrovent)Indicatio ns:Stage 3 [...] 2017 classification ([facility]) Inhale 2 Puffs by mouth every 4 hours as needed for Wheezing. Brand necessary 54 g 3 05/20/2023 Active Thiamine HCl 100 MG Oral Tablet (vitamin B-1) TAKE 1 TABLET BY MOUTH EVERY DAY 90 Tablet 3 06/08/2023 Active Levalbuterol HCl 1.25 MG/3ML Inhalation Nebulization Solution (Xopenex)Indication s:Chronic obstructive pulmonary disease, unspecified ([facility]) INHALE 1 AMPULE VIA NEBULIZER 3 [...] days. Until gone.. 20 Capsule 0 06/16/2023 4 Active predniSONE 20 MG Oral Tablet (Deltasone) Take 1 Tablet by mouth in the morning for 5 days. 5 Tablet 0 03/04/2023 4 Discontinu ed(Medicat ion List Clean Up) predniSONE 20 MG Oral Tablet (Deltasone) Take 2 Tablets by mouth in the morning for 5 days. 10 Tablet 0 04/19/2023 4 Discontinu ed(Medicat ion List Clean Up) Azithromycin 250 MG Oral Tablet (Zithromax Z-Kota) Take two tablets by mouth on first day, then 1 tablet daily until gone 6 Tablet 0 04/19/2023 4 Discontinu ed(Medicat ion List Clean Up) predniSONE 20 MG Oral Tablet (Deltasone) Take 2 Tablets by mouth daily for 3 days, THEN 1 Tablet daily for 5 days, THEN 0.5 Tablets daily for 5 days. 14 Tablet 0 05/20/2023 4 Discontinu ed(Medicat ion List Clean Up) documented as of this encounter (statuses as of 06/16/2023) Active Problems Problem Noted Date Diagnosed Date [...] as of this encounter (statuses as of 06/16/2023) Resolved Problems Problem Noted Date Diagnosed Date [...] as of this encounter (statuses as of 06/16/2023) Immunizations Name Administration Dates Next Due COVID-19 [...] 2:30 PM EST Telemedicine [facility], [place] [address] [place] [address] Taylor Schwartz PA-C [address] [place] [address] Kristi Viveros, Community Health Taxicab Coordinator [address] [place] [address] 08/03/2023 2:20 PM EST Office Visit Pulmonary Medicine, [facility] 132 [place] [address] Uday Jones DO [address] [place] [address] 08/24/2023 3:00 PM EDT Office Visit Family Practice [facility] [address] [facility] [address] Kavya Dillard CRNP [address] [place] [address] Health Maintenance Due Date Last Done Comments Alpha-1 Antitrypsin 1958 *ADVANCE DIRECTIVE NOT ON FILE 09/25/2020 Depression Screening 11/12/2020 11/13/2019 COVID-19 Vaccine (2022- season) 2023 01/24/2021, 10/07/2020 O2 ASSESSMENT COMPLETED IN PAST YEAR FOR COPD 05/20/2024 05/20/2023 DTaP,Tdap,and Td Vaccines (2 - Td or Tdap) 10/21/2027 10/20/2017 LUNG CANCER SCREENING - USE SMARTSET [id number] Completed 06/23/2017 Pneumococcal Vaccine: 65+ Years Completed [...] filedocumented as of this encounter Care Teams Mechanical Laboratory Technician Relationship Specialty Start Date End Date Kavya Dillard CRNP [address] [place] [address] PCP - General Nurse Practitioner 12/31/20 documented as of this encounter
--- OUTSIDE RECORDS SUMMARY | 2023-09-24 08:49 | External Medical Summary | Summary of Care ---
Author Name Unknown Organization [facility] Address [address] [place] [address] Phone [phone] Care Team Providers Care Waiter/Waitress Formal Name Role Phone Kavya Dillardlle GARRETT Primary Care Provider Reason for Visit * Reason Onset Date Comments Appointment 05/10/2023 Encounter Details Date Type Department Care Team (Late st Contact Info) Description 05/10/2023 Telephone [facility] [place] [address] [place] [address] Services, Scheduling [address] [place] [address] Appointment (//) Allergies No known active allergiesdocumented as of this encounter (statuses as of 05/10/2023) Medications Medication Sig Dispensed Refills Start Date [...] for Heartburn. 30 Tablet 11 02/24/2022 Active Roflumilast 500 MCG Oral Tablet (Daliresp) Take 1 Tablet (500 mcg) by mouth in the morning. 180 Tablet 4 05/15/2022 Active Vitamin B-12 100 MCG Oral Tablet [...] by GOLD 2017 classification ([facility]) INHALE BY MOUTH 2 PUFFS EVERY 4 [...] MORNING 60 Each 5 01/22/2023 Active Ipratropium Randolph 0.02 % Inhalation Solution (Atrovent)Indication s:Stage 3 [...] THE DAY 90 Capsule 1 04/22/2023 Active documented as of this encounter (statuses as of 05/10/2023) Active Problems Problem Noted Date Diagnosed Date [...] as of this encounter (statuses as of 05/10/2023) Resolved Problems Problem Noted Date Diagnosed Date [...] as of this encounter (statuses as of 05/10/2023) Immunizations Name Administration Dates Next Due Pneumococcal [...] Telephone Encounter - Dong Elizondo OSA - 05/10/2023 8:38 AM EST LMOM for pt to confirm ret [facility] 06/21/23 at 930/10am documented in this encounter Plan of Treatment Upcoming Encounters Date Type Department Care Team (Late st Contact Info) Description 06/21/2023 9:30 AM EST Telemedicine [facility], [place] [address] [place] [address] Taylor Schwartz PA-C [address] [place] [address] Kristi Viveros, Community Health Operations Systems Specialist [address] [place] [address] 07/06/2023 3:00 PM EST Office Visit Family Practice [facility] [address] [place] [address] Kavya Dillard CRNP [address] [place] [address] 08/03/2023 2:20 PM EST Office Visit Pulmonary Medicine, [facility] [address] [place] [address] Uday Jones, DO [address] [place] [address] Health Maintenance Due Date Last Done Comments Alpha-1 Antitrypsin 1958 *ADVANCE DIRECTIVE NOT ON FILE 09/25/2020 Depression Screening 11/12/2020 11/13/2019 COVID-19 Vaccine ( season) 2023 01/24/2021, 10/07/2020 O2 ASSESSMENT COMPLETED IN PAST YEAR FOR COPD 04/19/2024 04/19/2023 DTaP,Tdap,and Td Vaccines (2 - Td or Tdap) 10/21/2027 10/20/2017 LUNG CANCER SCREENING - USE SMARTSET 80216 Completed 06/23/2017 Pneumococcal Vaccine: 65+ Years Completed [...] filedocumented as of this encounter Care Teams Waiter/Waitress Formal Relationship Specialty Start Date End Date Kavya Dillard CRNP [address] [place] [address] PCP - General Nurse Practitioner 12/31/20 documented as of this encounter
--- OUTSIDE RECORDS SUMMARY | 2023-09-24 08:49 | External Medical Summary | Summary of Care ---
Author Name Unknown Organization [facility] Address [address] [place] [address] Phone [phone] Care Team Providers Care Quality Supervisor Name Role Phone Kavya Jacinto Primary Care Provider Reason for Visit * Reason Comments eRx-Medication Refill Encounter Details Date Type Department Care Team (Late st Contact Info) Description 05/15/2023 Refill Family Practice [facility] [address] [place] [address] Kavya Jacinto CRNP [address] [place] [address] Allergies No known active allergiesdocumented as of this encounter (statuses as of 05/16/2023) Medications Medication Sig Dispensed Refills Start Date End Date Status acetaminophen (TYLENOL) 500 MG Tablet Take 1 Tablet by mouth every 4 hours as needed for Pain. 0 8 Active Multiple Vitamins-Minerals (MULTIVITAMIN ADULTS) TABS Take by mouth daily. 0 Active oxygen IN GASIndications:Inc to 4LPM with ambulation/exertion 2.5 lpm at rest 3 LPM continuous oxygen with exertion DME: [facility] Indications: Inc to 4LPM with ambulation/exer tion 1 Each 0 1 Active Saccharomyces boulardii 250 MG Oral Capsule (Florastor) Take 1 Capsule by mouth in the morning. Florastor . 0 Active Roflumilast 500 MCG Oral Tablet (Daliresp) Take 1 Tablet (500 mcg) by mouth in the morning. 180 Tablet 4 2 Active Vitamin B-12 100 MCG Oral Tablet (vitamin B-12) TAKE 1 TABLET BY MOUTH DAILY 90 Tablet 3 3 Active Thiamine HCl 100 MG Oral Tablet (vitamin B-1) TAKE 1 TABLET BY MOUTH EVERY DAY 90 Tablet 3 3 Active guaiFENesin 200 MG Oral Tablet TAKE 1 TABLET BY MOUTH EVERY 6 HOURS NEEDED FOR CONGESTION FOR 4 DAYS 0 3 Active Ventolin HFA 108 (90 Base) MCG/ACT Inhalation Aerosol SolutionIndications :COPD, group D, by GOLD 2017 classification ([facility]) INHALE BY MOUTH 2 PUFFS EVERY 4 HOURS NEEDED FOR WHEEZING. BRAND NECESSARY 54 g 3 3 Active Potassium Chloride ER 20 [...] MORNING 60 Each 5 3 Active Ipratropium [place] 0.02 % Inhalation Solution (Atrovent)Indicatio ns:Stage 3 severe COPD by GOLD classification ([facility]) USE 1 VIAL IN NEBULIZER 3 TIMES DAILY FOR SEVERE CHRONIC OBSTRUCTIVE PULMONARY DISEASE 250 mL 4 3 Active Levalbuterol HCl 1.25 MG/3ML Inhalation Nebulization Solution (Xopenex)Indication s:Chronic obstructive pulmonary disease, unspecified ([facility]) INHALE 1 AMPULE VIA NEBULIZER 3 TIMES A DAY. 810 mL 1 3 Active Ferrous Sulfate 325 (65 Fe) [...] until gone 6 Tablet 0 3 Active Folic Acid 1 MG Oral [...] FOR HEARTBURN. 90 Tablet 3 3 Active Famotidine 20 MG Oral Tablet (Pepcid) Take by mouth 1 Tablet as needed before bedtime for Heartburn. 30 Tablet 11 2 05/16/20 23 Discontinued documented as of this encounter (statuses as of 05/16/2023) Active Problems Problem Noted Date Diagnosed Date [...] as of this encounter (statuses as of 05/16/2023) Resolved Problems Problem Noted Date Diagnosed Date [...] as of this encounter (statuses as of 05/16/2023) Immunizations Name Administration Dates Next Due Pneumococcal [...] encounter Miscellaneous Notes * Telephone Encounter - Didier Best [facility] [place] - 05/16/2023 11:37 AM ESTSigned Prescriptions: Disp Refills Famotidine 20 MG Oral Tablet (Pepcid) 90 Tab*3 Sig: TAKE BY MOUTH 1 TABLET NEEDED BEFORE BEDTIME FOR HEARTBURN.Authorizing Provider: KAVYA JACINTO User: DIDIER BEST documented in this encounter Plan of Treatment Upcoming Encounters Date Type Department Care Team (Late st Contact Info) Description 06/21/2023 9:30 AM EST Telemedicine [facility], [place] [address] [place] [address] Taylor Schwartz PA-C [address] [place] [address] Kristi Viveros, Community Health Director Of State [address] [place] [address] 07/06/2023 3:00 PM EST Office Visit Family Practice [facility] [address] [place] [address] Kavya Jacinto CRNP [address] [place] [address] 08/03/2023 2:20 PM EST Office Visit Pulmonary Medicine, [facility] [address] [place] [address] Uday Jones, DO [address] [facility] [place] [address] Health Maintenance Due Date Last Done Comments Alpha-1 Antitrypsin 1958 *ADVANCE DIRECTIVE NOT ON FILE 09/25/2020 Depression Screening 11/12/2020 11/13/2019 COVID-19 Vaccine ( season) 2023 01/24/2021, 10/07/2020 O2 ASSESSMENT COMPLETED IN PAST YEAR FOR COPD 04/19/2024 04/19/2023 DTaP,Tdap,and Td Vaccines (2 - Td or Tdap) 10/21/2027 10/20/2017 LUNG CANCER SCREENING - USE SMARTSET [id number] Completed 06/23/2017 Pneumococcal Vaccine: 65+ Years Completed [...] filedocumented as of this encounter Care Teams Quality Supervisor Relationship Specialty Start Date End Date Kavya Jacinto CRNP [address] [place] [address] PCP - General Nurse Practitioner 12/31/20 documented as of this encounter
--- OUTSIDE RECORDS SUMMARY | 2023-09-24 08:49 | External Medical Summary | Summary of Care ---
Author Name Unknown Organization [facility] Address [address] [place] [address] Phone [phone] Care Team Providers Care Basket Person Name Role Phone Kavya Jacinto Primary Care Provider Reason for Visit * Reason Comments eRx-Medication Refill Encounter Details Date Type Department Care Team (Late st Contact Info) Description 04/22/[address] [facility] [address] [place] [address] Kavya Jacinto CRNP [address] [place] [address] Chronic respiratory failure with hypoxia, on home O2 therapy Allergies No known active allergiesdocumented as of this encounter (statuses as of 04/22/2023) Medications Medication Sig Dispensed Refills Start Date End Date Status acetaminophen (TYLENOL) 500 MG Tablet Take 1 Tablet by mouth every 4 hours as needed for Pain. 0 8 Active Multiple Vitamins-Minerals (MULTIVITAMIN ADULTS) TABS Take by mouth daily. 0 Active oxygen IN GASIndications:Inc to 4LPM with ambulation/exertion 2.5 lpm at rest 3 LPM continuous oxygen with exertion DME: [facility] Indications: Inc to 4LPM with ambulation/exer tion 1 Each 0 1 Active Saccharomyces boulardii 250 MG Oral Capsule (Florastor) Take 1 Capsule by mouth in the morning. Florastor . 0 Active Famotidine 20 MG Oral Tablet (Pepcid) Take by mouth 1 Tablet as needed before bedtime for Heartburn. 30 Tablet 11 2 Active Roflumilast 500 MCG Oral Tablet [...] 2017 classification ([facility]) INHALE BY MOUTH 2 PUFFS [...] MORNING 60 Each 5 3 Active Ipratropium Roberts 0.02 % Inhalation Solution (Atrovent)Indicatio ns:Stage 3 severe COPD by GOLD classification ([facility]) USE 1 VIAL IN NEBULIZER 3 TIMES DAILY FOR SEVERE CHRONIC OBSTRUCTIVE PULMONARY DISEASE 250 mL 4 3 Active Levalbuterol HCl 1.25 MG/3ML Inhalation Nebulization Solution (Xopenex)Indication s:Chronic obstructive pulmonary disease, unspecified ([facility]) INHALE 1 [...] the morning. 180 Tablet 1 3 Active predniSONE 20 MG Oral Tablet (Deltasone) Take 2 Tablets by mouth in the morning for 5 days. 10 Tablet 0 3 04/24/20 23 Active Azithromycin 250 MG Oral Tablet (Zithromax [...] THE DAY 90 Capsule 1 3 Active Folic Acid 1 MG Oral TabletIndications:C hronic respiratory failure with hypoxia, on home O2 therapy Take 1 Tablet (1 mg) by mouth in the morning. 90 Tablet 3 2 04/22/20 23 Discontinued Omeprazole 40 MG Oral Capsule Delayed Release (PriLOSEC) TAKE 1 CAPSULE BY MOUTH DAILY. 1 HOUR BEFORE THE FIRST MEAL OF THE DAY 90 Capsule 1 3 04/22/20 Discontinued documented as of this encounter (statuses as of 04/22/2023) Active Problems Problem Noted Date Diagnosed Date [...] as of this encounter (statuses as of 04/22/2023) Resolved Problems Problem Noted Date Diagnosed Date [...] as of this encounter (statuses as of 04/22/2023) Immunizations Name Administration Dates Next Due Pneumococcal [...] Notes * Telephone Encounter - Pelon Lamb RP - 04/22/2023 12:54 PM EST Signed Prescriptions: Disp Refills Folic Acid 1 MG Oral Tablet 90 Tab*1 Sig: TAKE 1 TABLET BY MOUTHIN THE MORNINGAuthorizing Provider: KAVYA JACINTO User: PELON LAMB Omeprazole 40 MG Oral Capsule Delayed Rele*90 Cap*1 Sig: TAKE 1 CAPSULE BY MOUTH EVERY DAY 1 HOUR BEFORETHE FIRST MEAL OF THE DAYAuthorizing Provider: KAVYA JACINTO User: PELON LAMB documented in this encounter Plan of Treatment Upcoming Encounters Date Type Department Care Team (Late st Contact Info) Description 07/06/2023 3:00 PM EST Office Visit Family [facility] [address] [place] [address] Kavya Jacinto CRNP [address] [place] [address] 08/03/2023 2:20 PM EST Office Visit Pulmonary Medicine, [facility] [address] [place] [address] Uday Jones, DO [address] [facility] [place] [address] Health Maintenance Due Date Last Done Comments Alpha-1 Antitrypsin 1958 *ADVANCE DIRECTIVE NOT ON FILE 09/25/2020 Depression Screening 11/12/2020 11/13/2019 COVID-19 Vaccine ( season) 2023 01/24/2021, 10/07/2020 O2 ASSESSMENT COMPLETED IN PAST YEAR FOR COPD 04/19/2024 04/19/2023 DTaP,Tdap,and Td Vaccines (2 - Td or Tdap) 10/21/2027 10/20/2017 LUNG CANCER SCREENING - USE SMARTSET 15904 Completed 06/23/2017 Pneumococcal Vaccine: 65+ Years Completed [...] home O2 therapy documented in this encounter Care Teams Basket Person Relationship Specialty Start Date End Date Kavya Jacinto CRNP [address] [place] [address] PCP - General Nurse Practitioner 12/31/20 documented as of this encounter
--- OUTSIDE RECORDS SUMMARY | 2023-09-24 08:49 | External Medical Summary ---
Author Name Unknown Address Unknown Organization [id number]:[facility] [place] - [address] [facility] [place] [address] Laboratory Report Ordering Provider Test Date Status ORVILLE SMITH 05/20/2023 16:01:33 Final Observation Date Value Abnormality Reference (Units ) Status Adenovirus DNA [Presence] in Nasopharynx by CORINNE with non-probe detection 05/20/2023 16:01:33 Negative Negative Final Human coronavirus 229E RNA [Presence] in Nasopharynx by CORINNE with non-probe detection 05/20/2023 16:01:33 Negative Negative Final Human coronavirus HKU1 RNA [Presence] in Nasopharynx by CORINNE with non-probe detection 05/20/2023 16:01:33 Negative Negative Final Human coronavirus NL63 RNA [Presence] in Nasopharynx by CORINNE with non-probe detection 05/20/2023 16:01:33 Negative Negative Final Human coronavirus OC43 RNA [Presence] in Nasopharynx by CORINNE with non-probe detection 05/20/2023 16:01:33 Negative Negative Final SARS-CoV-2 (COVID-19) RNA [Presence] in Nasopharynx by CORINNE with non-probe detection 05/20/2023 16:01:33 Negative Negative Final Human metapneumovirus RNA [Presence] in Nasopharynx by CORINNE with non-probe detection 05/20/2023 16:01:33 Negative Negative Final Rhinovirus+Enterovirus RNA [Presence] in Nasopharynx by CORINNE with non-probe detection 05/20/2023 16:01:33 Negative Negative Final Influenza virus A RNA [Presence] in Nasopharynx by CORINNE with non-probe detection 05/20/2023 16:01:33 Negative Negative Final Influenza virus B RNA [Presence] in Nasopharynx by CORINNE with non-probe detection 05/20/2023 16:01:33 Negative Negative Final Parainfluenza virus 1 RNA [Presence] in Nasopharynx by CORINNE with non-probe detection 05/20/2023 16:01:33 Negative Negative Final Parainfluenza virus 2 RNA [Presence] in Nasopharynx by CORINNE with non-probe detection 05/20/2023 16:01:33 Negative Negative Final Parainfluenza virus 3 RNA [Presence] in Nasopharynx by CORINEN with non-probe detection 05/20/2023 16:01:33 Negative Negative Final Parainfluenza virus 4 RNA [Presence] in Nasopharynx by CORINNE with non-probe detection 05/20/2023 16:01:33 Negative Negative Final Respiratory syncytial virus RNA [Presence] in Nasopharynx by CORINNE with non-probe detection 05/20/2023 16:01:33 Negative Negative Final Bordetella pertussis.pertussis toxin promoter region [Presence] in Nasopharynx by CORINNE with non-probe detection 05/20/2023 16:01:33 Negative Negative Final Chlamydophila pneumoniae DNA [Presence] in Nasopharynx by CORINNE with non-probe detection 05/20/2023 16:01:33 Negative Negative Final Mycoplasma pneumoniae DNA [Presence] in Nasopharynx by CORINNE with non-probe detection 05/20/2023 16:01:33 Negative Negative Final Bordetella parapertussis [id number] DNA [Presence] in Nasopharynx by CORINNE with non-probe detection 05/20/2023 16:01:33 Negative Negative Final
The primers that detect Rhinovirus may cross react with some Enterorviruses. The validation of bronchial specimens, tracheal aspirates, and throats for this assay was developed and performance characteristics determined by [employer]. The validation of alternate specimen types has not been cleared or approved by the U.S. Food and Drug Administration (FDA). It has been determined that such clearance or approval is not necessary. Performing Location [facility] [place] - [facility] [place] [address]
--- OUTSIDE RECORDS SUMMARY | 2023-09-24 08:49 | External Medical Summary | Summary of Care ---
Author Name Unknown Organization [facility] Address [address] [place] [address] Phone [phone] Care Team Providers Care Medical Insurance Clerk Name Role Phone Kavya Dillardlle GARRETT Primary Care Provider Reason for Visit * Reason Comments [facility]: Telehealth Encounter Details Date Type Department Care Team (Late st Contact Info) Description 04/19/2023 9:30 AM EST Telemedicine [facility], [place] [address] [place] [address] Taylor Schwartz PA-C [address] [place] [address] Kristi Viveros, Community Health Blueprint Cutter [address] [place] [address] Chronic respiratory failure with hypoxia, on home O2 therapy *; Recurrent colitis due to Clostridioides difficile Allergies No known active allergiesdocumented as of this encounter (statuses as of 04/19/2023) Medications Medication Sig Dispensed Refills Start Date End Date Status acetaminophen (TYLENOL) 500 MG Tablet Take 1 Tablet by mouth every 4 hours as needed for Pain. 0 11/18/2017 Active Multiple Vitamins-Minerals (MULTIVITAMIN ADULTS) TABS Take by mouth daily. 0 Active oxygen IN GASIndications:Inc to 4LPM with ambulation/exertion 2.5 lpm at rest 3 LPM continuous oxygen with exertion DME: [facility] Indications: Inc to 4LPM with ambulation/exerti [...] GOLD 2017 classification ([facility]) INHALE BY MOUTH 2 [...] MORNING 60 Each 5 01/22/2023 Active Ipratropium [place] 0.02 % Inhalation Solution (Atrovent)Indication s:Stage 3 severe COPD by GOLD classification ([facility]) USE 1 VIAL IN NEBULIZER 3 TIMES DAILY FOR SEVERE CHRONIC OBSTRUCTIVE PULMONARY DISEASE 250 mL 4 02/01/2023 Active Levalbuterol HCl 1.25 MG/3ML Inhalation Nebulization Solution (Xopenex)Indications :Chronic obstructive pulmonary disease, unspecified ([facility]) INHALE 1 AMPULE VIA [...] the morning. 180 Tablet 1 04/14/2023 Active predniSONE 20 MG Oral Tablet (Deltasone) Take 2 Tablets by mouth in the morning for 5 days. 10 Tablet 0 04/19/2023 Active Azithromycin 250 MG Oral Tablet (Zithromax Z-Kota) Take two tablets by mouth on first day, then 1 tablet daily until gone 6 Tablet 0 04/19/2023 Active documented as of this encounter (statuses as of 04/19/2023) Active Problems Problem Noted Date Diagnosed Date [...] as of this encounter (statuses as of 04/19/2023) Resolved Problems Problem Noted Date Diagnosed Date [...] as of this encounter (statuses as of 04/19/2023) Immunizations Name Administration Dates Next Due Pneumococcal [...] Reading Time Taken Comments Blood Pressure 120/60 04/19/2023 9:49 AM EST Pulse 74 04/19/2023 9:49 AM EST Temperature 35.8 C (96.5 F) 04/19/2023 9:49 AM ES T Respiratory Rate - - Oxygen Saturation 98% 04/19/2023 9:49 AM EST Inhaled Oxygen Concentration - - Weight - - Height - - Body Mass Index - - documented in this encounter Progress Notes * Kristi Viveros, Community Health Blueprint Cutter - 04/19/2023 9:46 AM EST [facility] Blueprint Cutter Telephone Visit Date: 04/19/2023 Time: 9:47 AM Name: Jer Abreu JrJosé Miguel : 1940 Source of Information: Patient COVID-19 screening completed: Yes Vitals: Vital signs completed: Yes, vital signs within normal range. BP 120/60 (BP Site: Left Arm, BP Position: Sitting, BP Cuff Size: Regular) | Pulse 74 | Temp 35.8 C (96.5 F) (Infrared ) | SpO2 98% Condition Changes: Changes in health or social status since last visit: Patient reported no changes The patient has new concerns since last visit: Yes, Progress towards goals since last visit: See abve Medications: Medication review completed? No, Does the patient have barriers to medication adherence? No. Symptoms Surveys and Evaluations: Last flowsheet values for [facility]: Age 65+: 1 (04/19/2023 10:00 AM) Diagnosis (3 or more co-existing): 1 (04/19/2023 10:00 AM) Prior history of falls within 3 months: 1 (04/19/2023 10:00 AM) Incontinence: 0 (04/19/2023 10:00 AM) Visual impairment: 0 (04/19/2023 10:00 AM) Impaired functional mobility: 1 (04/19/2023 10:00 AM) Environmental hazards: 1 (04/19/2023 10:00 AM) Poly Pharmacy (4 or more prescriptions - any type): 1 (04/19/2023 10:00 AM) Pain affecting level of function: 1 (04/19/2023 10:00 AM) Cognitive impairment: 0 (04/19/2023 10:00 AM) Score - a score of 4 or more is considered at risk for fallin (04/19/2023 10:00 AM) COPD Checklist COPD CATHY ([facility] Cutter) Checklist The patient uses oxygen: Yes Tanks are stored: in living room Compressor located away from anything flammable: Yes Oxygen tubing: - Clean and in good repair: Yes - Reached out to Durable Medical Equipment supplier for replacement tubing: No, - Referred to [employer] for additional in-home respiratory assessment: No, - Other: Describe how the patient manages going out with oxygen: little portable tank - Referred to [employer] for portable oxygen order: No - Coordinated [...] COPD Assessment Test (CAT) completed this visit: No Last flowsheet values for COPD Assessment Test (CAT): [id number])@ Plan: Reinforced care plan established by care team Reinforced patient's three red flags by the care team No red flags were identified Follow Up: Patient encouraged to call the intake phone number for all urgent but not emergent issues. Scheduled to follow up with patient as pre scheduled. Kristi Viveros Community Health Blueprint Cutter 04/19/2023 9:47 AM * Taylor Schwartz PA-C - 04/19/2023 9:30 AM EST [facility] Provider Telemedicine Visit Date: 04/19/2023 Time: 9:48 AM Assessment/Plan: 1. Chronic respiratory failure with hypoxia, on home O2 therapy Maintaining on 2.5 liters of oxygen Rescue kit sent to pharmacy 2. Recurrent colitis due to Clostridioides difficile Taking oral vancomycin once daily Advised he can increase dose if S/S worsen Follow up plan: Will follow up in 6 weeks. Patient doing ok at home. He decided not to follow up with thoracic surgery. At this point in his life he just wants to remain comfortable at home as long as he can without extraordinary measures. A total of 45 minutes was spent face to face via video-based telemedicine. Subjective Patient location: HOME. I was not in a hospital or clinic location. After connecting through televideo, patient was verified with two unique identifiers. Patient (or authorized legal loan representative)was then informed that this was a Telemedicine visit and being conducted confidentially over securelines. Methods to assure confidentiality were taken. Patient acknowledged consent and understandingof privacy and security of the Telemedicine visit. The patient agreed to participate. Reason for Visit: Follow-Up Current Concerns: Jer Abreu Jr. is a 82 year old male seen today for a [facility] Telemedicine Provider Visit. Date of last known acute care visit: 04/01/23 with PCP Reason for last known acute care visit: Patient was admitted to [facility] from 03/24-03/27 with pneumothorax secondary to ruptured bleb. He was advised to follow up with thoracic surgery as outpatient. He saw PCP on 04/01 for hospital Today's concerns are: Patient states he is doing pretty good since being home. His breathing is at his baseline. He has some cough with yellowish/white sputum which is his normal. No pleuritic pain or left sided CP that was present prior to last hospital visit. He does not want to follow with thoracic surgery for blebectomy. He isn't sure if he wants to return to the hospital for treatment. He is maintaining on 2.5 liters of oxygen with no new oxygen requirements. He gets very SOB when moving too fast. No reported edema. Appetite is ok. Weight is staying around 116 lbs. He admits to having increased bouts of loosestools. He has been taking the Vancomycin once a day. No abdominal pain. ROS: See HPI Objective Physical Exam: BP 120/60 (BP Site: Left Arm, BP Position: Sitting, BP Cuff Size: Regular) | Pulse 74 | Temp 35.8 C (96.5 F) (Infrared ) | SpO2 98% Previous Wts: Wt Readings from Last 5 Encounters: 04/01/23 54.3 kg (119 lb 9.6 oz) 10/28/22 51.7 kg (114 lb) 02/10/22 46.7 kg (103 lb) 01/28/22 46.3 kg (102 lb) 12/16/21 46.7 kg (103 lb) Previous BPs: BP Readings from Last 5 Encounters: 04/01/23 118/60 03/09/23 100/80 02/02/23 120/58 12/23/22 114/54 10/28/22 110/62 Physical Exam Constitutional: General: He is not in acute distress. HENT: Head: Normocephalic and atraumatic. Nose: Nose normal. Mouth/Throat: Pharynx: Oropharynx is clear. Eyes: Extraocular Movements: Extraocular movements intact. Conjunctiva/sclera: Conjunctivae normal. Cardiovascular: Rate and Rhythm: Normal rate and regular rhythm. Pulmonary: Effort: Pulmonary effort is normal. No respiratory distress. Comments: Expiratory wheezing noted in the upper kan. Neurological: Mental Status: He is alert. Diagnostic Data Review: Hematology Lab Results Component [...] 3 LPM continuous oxygen with exertion DME: [facility] Indications: Inc to 4LPM with ambulation/exertion [...] BY MOUTH EVERY DAY 90 Tablet 3 guaiFENesin 200 MG Oral Tablet TAKE 1 TABLET BY MOUTH EVERY 6 HOURS NEEDED FOR CONGESTION FOR 4 DAYS (Patient not taking: Reported on 08/20/2022) Ventolin HFA 108 (90 Base) MCG/ACT Inhalation Aerosol Solution INHALE BY MOUTH 2 PUFFS EVERY 4 HOURS NEEDED FOR WHEEZING. BRAND NECESSARY 54 g 3 Potassium Chloride ER 20 MEQ Oral Tablet Extended Release TAKE 1 TABLET BY MOUTH EVERY DAY IN THE MORNING 90 Tablet 3 Vancomycin HCl 125 MG Oral Capsule (Vancocin) 1 CAP DAILY UNTIL FECAL TRANSPLANT. 90 Capsule 1 Trelegy Ellipta 100-62.5-25 MCG/ACT Aerosol Powder Breath Activated (Tgldekxkkyq-Hyoppxaplogx-Vkkmemvknb) INHALE 1 PUFF BY MOUTH IN THE MORNING 60 Each 5 Ipratropium [place] 0.02 % Inhalation Solution (Atrovent) USE 1 VIAL IN NEBULIZER 3 TIMES DAILY FORSEVERE CHRONIC OBSTRUCTIVE PULMONARY DISEASE 250 mL 4 Levalbuterol HCl 1.25 MG/3ML Inhalation Nebulization Solution (Xopenex) INHALE 1 AMPULE VIA NEBULIZER 3 TIMES A DAY. 810 mL 1 Ferrous Sulfate 325 (65 Fe) MG Oral Tablet (Feosol) Take 1 Tablet by mouth in the morning and 1 Tablet before bedtime. 60 Tablet 6 Magnesium Chloride 64 MG Oral Tablet Delayed Release (Mag-64) Take 1 Tablet by mouth in the morning. 180 Tablet 1 No current facility-administered medications for this visit. Mobility Evaluation: MACH10 Assessment: Assistive Devices Used in the Home: Walker (standard or rollator) Recent Falls: Falls in the last 6 months: No SDoH: DME (Durable Medical Equipment) needs Routine Transportation Urgent Transportation Social Isolation Taylor Ruiz PA-C 9:48 AM *Communication sent to PCP ([facility]), Population Health Care Team members, relevant Specialty Care Physicians* documented in this encounter Plan of Treatment Upcoming Encounters Date Type Department Care Team (Late st Contact Info) Description 07/06/2023 3:00 PM EST Office Visit Family Practice [facility] [address] [facility] [place] [address] [facility]illard [facility] [place] [address] 08/03/2023 2:20 PM EST Office Visit Pulmonary Medicine, [facility] [address] [facility] [place] [address] Uday Jones, DO [address] [facility] [place] [address] Health Maintenance Due Date Last Done Comments Alpha-1 Antitrypsin 1958 *ADVANCE DIRECTIVE NOT ON FILE 09/25/2020 Depression Screening 11/12/2020 11/13/2019 COVID-19 Vaccine (3 - 24 season) 2023 01/24/2021, 10/07/2020 O2 ASSESSMENT COMPLETED IN PAST YEAR FOR COPD 04/01/2024 04/01/2023 DTaP,Tdap,and Td Vaccines (2 - Td or Tdap) 10/21/2027 10/20/2017 LUNG CANCER SCREENING - USE SMARTSET [id number] Completed 06/23/2017 Pneumococcal Vaccine: 65+ Years Completed [...] with hypoxia, on home O2 therapy- Primary Recurrent colitis due to Clostridioides difficile documented in this encounter Care Teams Medical Insurance Clerk Relationship Specialty Start Date End Date Kavya Dillard CRNP [address] [place] [address] PCP - General Nurse Practitioner 12/31/20 documented as of this encounter
--- OUTSIDE RECORDS SUMMARY | 2023-09-24 08:50 | External Medical Summary | Summary of Care ---
Author Name Unknown Organization [facility] Address [address] [place] [address] Phone [phone] Care Team Providers Care Him Tech Name Role Phone Kavya Dillard Primary Care Provider Reason for Visit * Reason Onset Date Comments Referral 04/05/2023 Encounter Details Date Type Department Care Team (Late st Contact Info) Description 04/05/2023 New Patient Triage (BOND CLERK USE ONLY) [facility] [address] [place] [address] Myrtle Handy, barrel straightener Allergies No known active allergiesdocumented as of this encounter (statuses as of 04/05/2023) Medications Medication Sig Dispensed Refills Start Date End Date Status acetaminophen (TYLENOL) 500 MG Tablet Take 1 Tablet by mouth every 4 hours as needed for Pain. 0 11/18/2017 Active Multiple Vitamins-Minerals (MULTIVITAMIN ADULTS) TABS Take by mouth daily. 0 Active oxygen IN GASIndications:Inc to 4LPM with ambulation/exertion 2.5 lpm at rest 3 LPM continuous oxygen with exertion DME: [facility] Indications: Inc to 4LPM with ambulation/exerti [...] MORNING 60 Each 5 01/22/2023 Active Ipratropium [place] 0.02 % Inhalation Solution (Atrovent)Indication s:Stage [...] 1 Tablet before bedtime. 0 03/27/2023 Active documented as of this encounter (statuses as of 04/05/2023) Active Problems Problem Noted Date Diagnosed Date [...] as of this encounter (statuses as of 04/05/2023) Resolved Problems Problem Noted Date Diagnosed Date [...] as of this encounter (statuses as of 04/05/2023) Immunizations Name Administration Dates Next Due Pneumococcal [...] as of this encounter Progress Notes * Roseanne De La Torre PA-C - 04/05/2023 12:45 PM EDT Does patient need to be seen?: Yes Modality: Office visit Urgency: Within 30 days (routine) Discussed care plan with patient or proxy?: Yes Patient contacted by Myrtle Handy RN Communicated with patient on Date (mm/dd/yyyy): 04/05/2023 at Time ([facility]): 1230 * Myrtle Handy RN - 04/05/2023 12:24 PM EDT New Patient Triage What is the diagnosis/reason for referral?: bleb, lung Enter order ID here: [id number] Specialty specific documentation: Cardiac and Thoracic Surgery Discussed care plan with patient or proxy?: Yes called and left a VM with my name, call back numberand reason I was calling. 82 year old referred by Kavya TUCKER at PCP office. Recently hospitalized at [facility] 03/24/23 - 03/27/23, presented to ED with chest pain X 3 days. Few weeks ago complaints of flu like symptoms, body aches, URI symptoms, nasal congestion and myalgia. Diagnosed with spontaneous pneumothorax. No plan for invasive intervention, follow up with [facility] pulmonary is planned History of COPD, chronic hypoxic respiratory failure on 2.5L/min 28/12, uses walker at baseline, alcohol use, GERD, recurrent C diff. Communicated with patient on Date (mm/dd/yyyy): 04/05/2023 at Time ([facility]): 1230 Myrtle Handy RN [facility] Thoracic Surgery Nurse Navigator [facility] documented in this encounter Plan of Treatment Upcoming Encounters Date Type Department Care Team (Late st Contact Info) Description 04/19/2023 9:30 AM EST Telemedicine [facility], [place] [address] [place] [address] Taylor Schwartz PA-C [address] [place] [address] Kristi Viveros, Community Health Dryer Operator [address] [place] [address] 07/06/2023 3:00 PM EST Office [facility] [address] [facility]illard CRNP [address] [facility] [address] 08/03/2023 2:20 PM EST Office Visit Pulmonary Medicine, [facility] [address] [facility] [place] [address] Uday Jones, DO [address] [place] [address] Health Maintenance Due Date Last Done Comments Alpha-1 Antitrypsin 1958 *ADVANCE DIRECTIVE NOT ON FILE 09/25/2020 Depression Screening 11/12/2020 11/13/2019 COVID-19 Vaccine ( season) 2023 01/24/2021, 10/07/2020 O2 ASSESSMENT COMPLETED IN PAST YEAR FOR COPD 04/01/2024 04/01/2023 DTaP,Tdap,and Td Vaccines (2 - Td or Tdap) 10/21/2027 10/20/2017 LUNG CANCER SCREENING - USE SMARTSET [id number] Completed 06/23/2017 Pneumococcal Vaccine: 65+ Years Completed [...] filedocumented as of this encounter Care Teams Him Tech Relationship Specialty Start Date End Date Kavya Dillard CRNP [address] [place] [address] PCP - General Nurse Practitioner 12/31/20 documented as of this encounter
--- OUTSIDE RECORDS SUMMARY | 2023-09-24 08:50 | External Medical Summary | Summary of Care ---
Author Name Unknown Organization [facility] Address [address] [place] [address] Phone [phone] Care Team Providers Care Trauma Counsellor Name Role Phone Kavya Jacinto Primary Care Provider Reason for Visit * Reason Onset Date Comments Medication Refill 04/14/2023 Encounter Details Date Type Department Care Team (Late st Contact Info) Description 04/14/2023 Refill Family Practice [facility] [address] [place] [address] Kavya Jacinto CRNP [address] [place] [address] Allergies No known active allergiesdocumented as of this encounter (statuses as of 04/14/2023) Medications Medication Sig Dispensed Refills Start Date [...] :COPD, group D, by GOLD 2017 classification ([place] [...] 60 Each 5 01/22/2023 Active Ipratropium [place] 0.02 % Inhalation Solution (Atrovent)Indicatio ns:Stage 3 [...] the morning. 180 Tablet 1 04/14/2023 Active Magnesium Chloride 64 MG Oral Tablet Delayed Release (Mag-64) Take 1 Tablet by mouth in the morning and 1 Tablet before bedtime. 0 03/27/2023 Discontinu ed(Refill) documented as of this encounter (statuses as of 04/14/2023) Active Problems Problem Noted Date Diagnosed Date [...] as of this encounter (statuses as of 04/14/2023) Resolved Problems Problem Noted Date Diagnosed Date [...] as of this encounter (statuses as of 04/14/2023) Immunizations Name Administration Dates Next Due Pneumococcal [...] Telephone Encounter - Kavya Jacinto CRNP - 04/14/2023 1:38 PM EST Signed Prescriptions: Disp Refills Magnesium Chloride 64 MG Oral Tablet Delay*180 Ta*1 Sig: Take 1 Tablet by mouth in the morning. Authorizing Provider: KAVYA JACINTO * Telephone Encounter - Kayli Horton RN - 04/14/2023 1:14 PM EST Patient in need of refill for magnesium. Pended, if agreeable Kavya? Thank you Did you pend patient's preferred pharmacy and medication before forwarding?yes Pharmacy: [id number] [address] [place] [address] Pending Prescriptions: Disp Refills Magnesium Chloride 64 MG Oral Tablet Karli*180 Ta*1 Sig: Take 1 Tablet by mouth in the morning and 1 Tablet before bedtime. Last Visit: 04/01/2023 (in office), Visit date not found (telemedicine) Next Visit: 07/06/2023 If no future appointments scheduled, and last appointment is greater than a year ago, please schedule patient for a follow-up appointment Last date the medication was ordered: at discharge Is this request for a controlled substance?No [...] 9:30 AM EST Telemedicine [facility], [place] [address] [place] [address] Taylor Schwartz PA-C [address] [place] [address] Kristi Viveros, Community Health Grinding Machine Operator [address] [place] [address] 07/06/2023 3:00 PM EST Office Visit [facility] 132 [facility] [place] [address] Kavya Jacinto CRNP 132 [facility] [place] [address] 08/03/2023 2:20 PM EST Office Visit Pulmonary Medicine, [facility] [address] [facility] [place] [address] Uday Jones DO [address] [place] [address] Health Maintenance Due Date Last Done Comments Alpha-1 Antitrypsin 1958 *ADVANCE DIRECTIVE NOT ON FILE 09/25/2020 Depression Screening 11/12/2020 11/13/2019 COVID-19 Vaccine ( season) 2023 01/24/2021, 10/07/2020 O2 ASSESSMENT COMPLETED IN PAST YEAR FOR COPD 04/01/2024 04/01/2023 DTaP,Tdap,and Td Vaccines (2 - Td or Tdap) 10/21/2027 10/20/2017 LUNG CANCER SCREENING - USE SMARTSET [id number] Completed 06/23/2017 Pneumococcal Vaccine: 65+ Years Completed [...] filedocumented as of this encounter Care Teams Trauma Counsellor Relationship Specialty Start Date End Date Kavya Jacinto CRNP [address] [place] [address] PCP - General Nurse Practitioner 12/31/20 documented as of this encounter
--- OUTSIDE RECORDS SUMMARY | 2023-09-24 08:50 | External Medical Summary | Summary of Care ---
Author Name Unknown Organization [facility] Address [address] [place] [address] Phone [phone] Care Team Providers Care Manager Sql Name Role Phone Kavya Dillard GARRETT Primary Care Provider Reason for Visit * Reason Comments case management Encounter Details Date Type Department Care Team (Late st Contact Info) Description 04/01/2023 [facility] [address] [place] [address] Kayli Horton, RN [address] [place] [address] Medical home patient encounter* Allergies No known [...] continuous oxygen with exertion DME: [facility] Indications: Inc to 4LPM with ambulation/exerti on [...] MORNING 60 Each 5 01/22/2023 Active Ipratropium [place] 0.02 % Inhalation Solution (Atrovent)Indication s:Stage 3 [...] Progress Notes * Kayli Horton RN - 04/01/2023 4:08 PM EDT CM Progress note S: Met with patient in the clinic during his OV with PCP, Kavya iDllard. His Violeta is present as well. He reports the pain in his L chest has resolved. Breathing is at baseline. Bowels are still alternating, at times loose, at times formed. He has 1-2 alcholic drinks a day, he does not wish to stop this. He states "I'm gonna someday, I might as well happy". He would like to not go back to the hospital in the future, but is not quite ready for hospice. He is undecided if he would want hospice services in the future, he is happy with his care as it currently is. He appreciates also having the home/rele[facility] with [facility] provider Flora Arora. He would like to continue these as well. O: office visit A: alert, oriented, pleasant P: reinforced care plan as previously established. Patient had completed POLST with Kavya in the past. Discussed Palliative care as an option in the future as well. documented in this encounter Plan of Treatment Upcoming Encounters Date Type Department Care Team (Late st Contact Info) Description 04/19/2023 9:30 AM EST Telemedicine [facility], [place] [address] [place] [address] Taylor Schwartz PA-C [address] [place] [address] Kristi Viveros, Community Health Dyehouse Worker [address] [place] [address] 07/06/2023 3:00 PM EST Office Visit [facility] 132 [facility] [place] [address] Kavya Dillard CRNP [address] [facility] [place] [address] 08/03/2023 2:20 PM EST Office Visit Pulmonary Medicine, [facility] [address] [place] [address] Uday Jones, DO [address] [facility] [address] Health Maintenance Due Date Last Done Comments Alpha-1 Antitrypsin 1958 *ADVANCE DIRECTIVE NOT ON FILE 09/25/2020 Depression Screening 11/12/2020 11/13/2019 COVID-19 Vaccine ( season) 2023 01/24/2021, 10/07/2020 O2 ASSESSMENT COMPLETED IN PAST YEAR FOR COPD 04/01/2024 04/01/2023 DTaP,Tdap,and Td Vaccines (2 - Td or Tdap) 10/21/2027 10/20/2017 LUNG CANCER SCREENING - USE SMARTSET [id number] Completed 06/23/2017 Pneumococcal Vaccine: 65+ Years Completed [...] examination documented in this encounter Care Teams Manager Sql Relationship Specialty Start Date End Date Kavya Dillard CRNP [address] [place] [address] PCP - General Nurse Practitioner 12/31/20 documented as of this encounter
--- OUTSIDE RECORDS SUMMARY | 2023-09-24 08:50 | External Medical Summary | Summary of Care ---
Author Name Unknown Organization [facility] Address [address] [place] [address] Phone [phone] Care Team Providers Care Lumber Grader Name Role Phone Kavya Dillard Primary Care Provider Reason for Visit * Reason Onset Date Comments Referral 04/05/2023 Encounter Details Date Type Department Care Team (Late st Contact Info) Description 04/05/2023 New Patient Triage (AIRLINE SECURITY REPRESENTATIVE USE ONLY) Thoracic [facility]urg [facility] [address] [place] [address] Myrtle Handy, animal ride manager Allergies No known active allergiesdocumented as of this encounter (statuses as of 04/07/2023) Medications Medication Sig Dispensed Refills Start Date End Date Status acetaminophen (TYLENOL) 500 MG Tablet Take 1 Tablet by mouth every 4 hours as needed for Pain. 0 11/18/2017 Active Multiple Vitamins-Minerals (MULTIVITAMIN ADULTS) TABS Take by mouth daily. 0 Active oxygen IN GASIndications:Inc to 4LPM with ambulation/exertion 2.5 lpm at rest 3 LPM continuous oxygen with exertion DME: [facility] Indications: Inc to 4LPM [...] 60 Each 5 01/22/2023 Active Ipratropium [place] 0.02 % Inhalation Solution (Atrovent)Indication s:Stage 3 severe COPD by GOLD classification ([facility]) USE 1 VIAL IN NEBULIZER 3 TIMES DAILY FOR SEVERE CHRONIC OBSTRUCTIVE PULMONARY DISEASE 250 mL 4 02/01/2023 Active Levalbuterol HCl 1.25 MG/3ML Inhalation Nebulization Solution (Xopenex)Indications :Chronic obstructive pulmonary disease, unspecified ([facility]) INHALE 1 AMPULE VIA NEBULIZER 3 [...] as of this encounter (statuses as of 04/07/2023) Active Problems Problem Noted Date Diagnosed Date [...] as of this encounter (statuses as of 04/07/2023) Resolved Problems Problem Noted Date Diagnosed Date [...] as of this encounter (statuses as of 04/07/2023) Immunizations Name Administration Dates Next Due PPD 04/22/2005 Pneumococcal Conjugate Vacc, 13 Valent (Prevnar) 10/20/2017 Pneumococcal Polysaccharide PPV23 (Pneumovax) 04/27/2017 SEASONAL INFLUENZA, PF, 6 M & Above, IM , (FLULAVAL or FLUZONE) 02/28/2018,03/12/2017 Seasonal Influenza, Quadriva lent Hd (Fluzone [...] as of this encounter Progress Notes * Myrtle Handy RN - 04/07/2023 1:22 PM EDT Mr Lois called stating that he did not want this appt. He was not interested in surgery. I will remove the referral. I instructed him if anything changed Kavya Dillard could reach back out to us. He verbalized understanding and thanked me for the information. Myrtle Handy RN MSN [facility] Thoracic Surgery Nurse Navigator [facility] [phone] * Roseanne De La Torre PA-C - 04/05/2023 12:45 PM EDT Does patient need to be seen?: Yes Modality: Office visit Urgency: Within 30 days (routine) Discussed care plan with patient or proxy?: Yes Patient contacted by Myrtle Handy RN Communicated with patient on Date (//yyyy): 04/05/2023 at [facility] 1230 * Myrtle Handy RN - 04/05/2023 12:24 PM EDT New Patient Triage What is the diagnosis/reason for referral?: bleb, lung Enter order ID here: [id number] Specialty specific documentation: Cardiac and Thoracic Surgery Discussed care plan with patient or proxy?: Yes called and left a VM with my name, call back numberand reason I was calling. 82 year old referred by Kavya TUCKER at PCP office. Recently hospitalized at [facility] 03/24/23 - 03/27/23, presented to ED with chest pain X 3 days. Few weeks ago complaints of flu like symptoms, body aches, URI symptoms, nasal congestion and myalgia. Diagnosed with spontaneous pneumothorax. No plan for invasive intervention, follow up with [facility] pulmonary is planned History of COPD, chronic hypoxic respiratory failure on 2.5L/min 28/12, uses walker at baseline, alcohol use, GERD, recurrent C diff. Communicated with patient on Date (mm/dd/yyyy): 04/05/2023 at Time ([facility] 1230 Myrtle Handy RN MSN [facility] Thoracic Surgery Nurse Navigator [facility] documented in this encounter Plan of Treatment Upcoming Encounters Date Type Department Care Team (Late st Contact Info) Description 04/19/2023 9:30 AM EST Telemedicine [facility], [place] [address] [place] [address] Taylor Schwartz PA-C [address] [place] [address] Kristi Viveros, Community Health Special Loan Officer [address] [place] [address] 07/06/2023 3:00 PM EST Office Visit Family Practice [facility] [address] [place] [address] Kavya Dillard CRNP [address] [place] [address] 08/03/2023 2:20 PM EST Office Visit Pulmonary Medicine, [facility] [address] [place] [address] Uday Jones, [address] [place] [address] Health Maintenance Due Date Last Done Comments Alpha-1 Antitrypsin 1960 *ADVANCE DIRECTIVE NOT ON FILE 09/25/2020 Depression Screening 11/12/2020 11/13/2019 COVID-19 Vaccine ( season) 2023 01/24/2021, 10/07/2020 O2 ASSESSMENT COMPLETED IN PAST YEAR FOR COPD 04/01/2024 04/01/2023 DTaP,Tdap,and Td Vaccines (2 - Td or Tdap) 10/21/2027 10/20/2017 LUNG CANCER SCREENING - USE SMARTSET [id number] Completed 06/23/2017 Pneumococcal Vaccine: 65+ Years Completed [...] filedocumented as of this encounter Care Teams Lumber Grader Relationship Specialty Start Date End Date Kavya Dillard CRNP [address] [place] [id number] PCP - General Nurse Practitioner 12/31/20 documented as of this encounter
[2023-09-24] MEDS: methylPREDNISolone 40 MG in SYRINGE 0 ML IV SCH (08:52)
[2023-09-24] MEDS: CHERRY SYRUP 5 ML UDP PO SCH (09:04)
[2023-09-24] MEDS: VANCOMYCIN HCL 125 MG/2.5ML SOLN PO SCH (09:04)
[2023-09-24] MEDS: MAGNESIUM SULFATE / D5W 1 GM/100 ML BAG IV ONE (09:31)
--- NOTE | 2023-09-24 10:00 | Palliative Care Consultation ---
Date of Consultation September 24, 2023 Assessment & Plan (1) Hospice care patient: Plan Chart review indicates pt's home hospice agency is aware of his arrival to hospital, they are planning inpatient hospice admission after hospice nurse sees him today, with their plan for improving symptoms then returning home with hospice. I will decline the consult for now given this plan. Dr. Cope aware. Pt is an active home hospice case. please direct all symptom mgt issues to his hospice team for management. Pt not seen NO charge submitted Thank you for allowing us to participate in the ongoing care of this patient. Dr. Fadia Valera DNP Director, Palliative Care History of Present Illness Reason for Consultation: hospice Attending Physician: Baljit Cope MD History of Present Illness 82yo male with terminal COPD on home hospice came to ED with uncontrolled dyspnea unclear if he asked hospice for help to improve this Allergies Allergy/AdvReac Type Severity Reaction Status Date / Time No Known Allergies Allergy Verified 09/23/23 15:04 Home Medications Medication Instructions Recorded Confirmed Type albuterol sulfate 90 mcg/actuation 2 puffs inhalation Q4H PRN 04/11/19 09/23/23 History breath activated powder inhaler shortness of breath or wheezing (ProAir RespiClick) folic acid 1 mg tablet 1 mg PO QAM 04/11/19 09/23/23 History acetaminophen 500 mg tablet 1,000 mg PO DIRECTED PRN Pain 09/27/21 09/23/23 History (Tylenol Extra Strength) multivitamin with minerals 1 tab PO DAILY 09/27/21 09/23/23 History omeprazole 40 mg capsule,delayed 40 mg PO DAILYBB 09/27/21 09/23/23 History release potassium chloride 20 mEq 20 meq PO DAILY 09/27/21 09/23/23 History tablet,extended release famotidine 20 mg tablet 20 mg PO BID Heartburn 06/20/22 09/23/23 History Saccharomyces boulardii 250 mg 250 mg PO DAILY 03/24/23 09/23/23 History capsule (Florastor) ferrous sulfate 325 mg (65 mg 325 mg PO DAILY 03/24/23 09/23/23 History iron) tablet vancomycin 125 mg capsule 125 mg PO DAILY 03/24/23 09/23/23 History guaifenesin 200 mg tablet 200 mg PO AMPM 09/23/23 09/23/23 History ipratropium 0.5 mg-albuterol 3 mg 3 ml inhalation Q4 PRN Shortness 09/23/23 09/23/23 History (2.5 mg base)/3 mL nebulization Of Breath Or Wheezing soln lorazepam 1 mg tablet 0.5 mg sublingual DIRECTED PRN 09/23/23 09/23/23 History .Restless/insomnia magnesium chloride 64 mg 64 mg PO DAILY 09/23/23 09/23/23 History (magnesium chloride) tablet,delayed release (Mag 64) morphine concentrate 100 mg/5 mL 5 mg sublingual .Q2HR PRN Pain 09/23/23 09/23/23 History (20 mg/mL) oral solution Patient History Medical History Emphysematous COPD Secondary spontaneous pneumothorax Goals of care, counseling/discussion Chronic respiratory failure with hypoxia, on home oxygen therapy Multifocal pneumonia Pneumonia History of alcohol abuse Acute and chronic respiratory failure COPD exacerbation Hypomagnesemia Elevated troponin I level Oxygen dependent GERD with esophagitis Alcohol abuse History of tobacco use Chronic respiratory failure Fibrosis of lung Pulmonary hypertension On home oxygen therapy WEARS O2 AT 2L CONT. Chronic obstructive pulmonary disease Surgical History History of right cataract surgery History of tooth extraction Family History Mother Diverticulitis Father COPD (chronic obstructive pulmonary disease) Dad was a smoker Social History Smoking Status: Former smoker Tobacco Type: Cigarettes Second Hand Exposure: Yes; Do You Dip or Chew Tobacco: No; Tobacco Cessation Education Requested by Patient: No Hx Alcohol Use: Yes Alcohol type: beer and hard liquor Hx Substance Use: Yes Last Used Substance: Days (ago) Last Used Substance Other:: States "It's been a while" Preferred Language: Grenadian Communication Ability: Effective Public Relations Account Executive Required: No Beliefs That Will Affect Care: None marital status: Current Living Situation: Spouse Current Living Situation Comment: at home with Other Information That Helps Us Care for You: Yes (Uses [facility]) Feels Safe at Home: Yes Safety Concerns: Feels Safe At This Time Assistive Devices: Denture - Upper, Denture - Lower, Hospital Bed, Oxygen - Continuous and Walker Review of Systems Review of Systems: see admitting notes Physical Exam Physical Exam: pt not seen, see plan below Results & Data Vital Signs (Past 12 Hours) Vital Signs Temp Pulse Resp BP Pulse Ox O2 Del Method O2 Flow Rate 09/24/23 08:05 36.2 C L 89 16 135/79 92 Nasal Cannula 2 09/24/23 07:43 Nasal Cannula 2 09/24/23 07:23 95 H 15 98 Nasal Cannula 2 09/24/23 01:27 18 96 Nasal Cannula 2 Laboratory Results see admitting notes Diagnostic Findings see admitting notes PG Care Time/CCT Total # of Minutes Spent Total Time Spent: 25 Total Time Spent with Patient: Total time spent is greater than 50% in coordination of care (as documented) at patient's floor/unit and/or counseling patient: Coding Level of Care Code New Pt None Patient Type New History Comprehensive Diagnoses Hospice care patient Z51.5
[2023-09-24] MEDS: FLUTICASONE PROPIONATE NA SPR 16 GM BTL SCH (14:30)
--- NOTE | 2023-09-24 16:35 | Hospitalist Progress Note ---
Date of Service September 24, 2023 Assessment & Plan (1) Emphysematous COPD: (2) Hospice care patient: (3) Alcohol use: (4) Chronic respiratory failure with hypoxia, on home oxygen therapy: (5) Pneumonia: Plan This is an 82yo M with a PMH of advanced COPD on Hospice since last month who presents with more significant SOB and air hunger. Acute COPD exacerbation Chronic hypoxic respiratory failure End-stage COPD Pneumonia Hospice patient --CXR with Left greater than right bibasilar airspace consolidation. Correlate clinically for evidence of pneumonia/aspiration pneumonitis. Radiographic follow-up to resolution is recommend On Unasyn, nebs, Solu-Medrol Supplemental oxygen to keep sats 88 to 92% Added Flonase Plan for inpatient hospice admission after hospice nurse evaluation today Continue home Roxanol, Ativan PRN Recurrent R diff colitis Continue PO vancomycin Contact precautions Atrial fibrillation All medications have been discontinued by hospice last month Hypomagnesemia Replete electrolytes as needed CODE STATUS DNI DNR Admission and Anticipated Discharge Date Admission Date: September 23, 2023 Subjective Patient is seen and examined at bedside Less dyspnea, cough today Reports having some chest discomfort with cough Offers no other complaints Feels well when compared to yesterday Saturating well on 2 L supplemental oxygen Review of Systems Review of Systems: All systems reviewed & are unremarkable except as noted in Subjective Physical Exam Physical Exam: Physical Exam: Vitals signs as noted above General Appearance:Thin, frail, no apparent distress, chronic ill-appearing Head: normocephalic, Atraumatic Eyes: normal inspection, EOMI Neck: supple, Trachea midline Respiratory/Chest: Decreased breath sounds, scattered wheezes Cardiovascular: S1, S2, No murmur Abdomen/GI:Soft, Non tender, Bowel sounds present Extremities/Musculoskeletal:normal inspection, no edema Neurologic/Psych:AAOX3, grossly no focal neurological deficits Skin: normal color, warm Results & Data Results & Data Vital Signs (Past 12 Hours) Vital Signs Temp Pulse Pulse Resp BP BP Pulse Ox 09/24/23 15:23 36.7 C 100 H 18 145/76 H 94 09/24/23 14:54 118 H 19 98 09/24/23 11:04 82 15 98 09/24/23 08:05 36.2 C L 89 16 135/79 92 09/24/23 07:43 09/24/23 07:23 95 H 15 98 O2 Del Method O2 Flow Rate 09/24/23 15:23 Nasal Cannula 2 09/24/23 14:54 Nasal Cannula 2 09/24/23 11:04 Nasal Cannula 2 09/24/23 08:05 Nasal Cannula 2 09/24/23 07:43 Nasal Cannula 2 09/24/23 07:23 Nasal Cannula 2
--- NOTE | 2023-09-25 06:09 | Electrocardiogram Report ---
Test Reason : Blood Pressure : / mmHG Vent. Rate : 114 BPM Atrial Rate : 114 BPM P-R Int : 160 ms QRS Dur : 076 ms QT Int : 304 ms P-R-T Axes : 091 093 070 degrees QTc Int : 419 ms Suspect arm lead reversal, interpretation assumes no reversal Sinus tachycardia with Premature atrial complexes Rightward axis Nonspecific ST abnormality Abnormal ECG When compared with ECG of 24-MAR-2023 16:49, Vent. rate has increased BY [address] now depressed in Anterior leads T wave inversion no longer evident in Anterior leads Confirmed by Zac Conteh ([id number]) on 09/25/2023 6:08:33 AM Referred By: REFERRED SELF Confirmed By:Sarmad Conteh
[2023-09-25 06:56] LABS: Hematocrit (blood only) 41.1 % (42.0-52.0); Hemoglobin 13.5 g/dl (14.0-18.0); Mean Corpuscular Hemoglobin 32.1 pg (25.0-34.0); Mean Corpuscular Hgb Conc 32.8 g/dL (32.0-36.0); Mean Corpuscular Volume 97.6 fL (80.0-100.0); Mean Platelet Volume 9.9 fL (9.4-12.4); Platelet Count 203 K/uL (130-400); RDW Coefficient of Variation 13.7 % (11.5-14.5); RDW Standard Deviation 49.3 fL (36.4-46.3); Red Blood Count 4.21 M/uL (4.70-6.10); White Blood Count 15.23 K/ul (4.8-10.8)
[2023-09-25 07:11] LABS: BUN Creatinine Ratio 25.9 (10-20); Calcium 9.1 mg/dl (8.6-10.3); Creatinine Clr Calc Pharmacy 39.4 ml/min; Est GFR (African American) 74.7 ml/min; Est GFR (Non-African American) 64.5 ml/min; Magnesium 1.9 mg/dl (1.7-2.4); Potassium 4.3 mmol/L (3.5-5.1)
--- NOTE | 2023-09-25 17:13 | Hospitalist Progress Note ---
Date of Service September 25, 2023 Assessment & Plan (1) Emphysematous COPD: (2) Hospice care patient: (3) Alcohol use: (4) Chronic respiratory failure with hypoxia, on home oxygen therapy: (5) Pneumonia: Plan This is an 82yo M with a PMH of advanced COPD on Hospice since last month who presents with more significant SOB and air hunger. Acute COPD exacerbation Chronic hypoxic respiratory failure End-stage COPD Pneumonia Was on hospice --CXR with Left greater than right bibasilar airspace consolidation. Correlate clinically for evidence of pneumonia/aspiration pneumonitis. Radiographic follow-up to resolution is recommend On Unasyn, nebs, Solu-Medrol Supplemental oxygen to keep sats 88 to 92% Added Flonase Continue home Roxanol, Ativan PRN GIP hospice will today Patient plans to resume hospice care on discharge Currently saturating well on room air Recurrent R diff colitis Continue PO vancomycin Contact precautions Atrial fibrillation All medications have been discontinued by hospice last month Hypomagnesemia Replete electrolytes as needed CODE STATUS DNI DNR Admission and Anticipated Discharge Date Admission Date: September 23, 2023 Subjective Patient is seen and examined at bedside Still has significant dyspnea on exertion Cough is controlled Saturating well on room air Review of Systems Review of Systems: All systems reviewed & are unremarkable except as noted in Subjective Physical Exam Physical Exam: Physical Exam: Vitals signs as noted above General Appearance:Thin, frail, no apparent distress, chronic ill-appearing Head: normocephalic, Atraumatic Eyes: normal inspection, EOMI Neck: supple, Trachea midline Respiratory/Chest: Decreased breath sounds, B/L wheezes Cardiovascular: S1, S2, No murmur Abdomen/GI:Soft, Non tender, Bowel sounds present Extremities/Musculoskeletal:normal inspection, no edema Neurologic/Psych:AAOX3, grossly no focal neurological deficits Skin: normal color, warm Results & Data Results & Data Vital Signs (Past 12 Hours) Vital Signs Temp Pulse Pulse Resp BP BP Pulse Ox 09/25/23 17:10 89 18 157/82 H 95 09/25/23 15:40 36.7 C 91 H 18 160/86 H 93 09/25/23 15:06 81 15 93 09/25/23 11:19 74 16 92 09/25/23 09:38 88 148/74 H 09/25/23 07:47 86 171/72 H 96 09/25/23 07:31 04/20/24 07:24 100 H 17 94 09/25/23 07:01 36.5 C 87 19 161/89 H 95 O2 Del Method O2 Flow Rate 09/25/23 17:10 Room Air 09/25/23 15:40 Nasal Cannula 2 09/25/23 15:06 Nasal Cannula 2 09/25/23 11:19 Nasal Cannula 2 09/25/23 09:38 09/25/23 07:47 Nasal Cannula 2 09/25/23 07:31 Nasal Cannula 2 09/25/23 07:24 Nasal Cannula 2 09/25/23 07:01 Nasal Cannula 2 Laboratory Results Short CBC 09/25/23 Range/Units 06:36 WBC 15.23 H (4.8-10.8) K/ul Hgb 13.5 L (14.0-18.0) g/dl Hct 41.1 L (42.0-52.0) % Plt Count 203 (130-400) K/uL BMP 09/25/23 06:36 Sodium 144 Potassium 4.3 Chloride 110 H Carbon Dioxide 29 BUN 28 H Creatinine 1.08 Glucose 122 H Calcium 9.1
--- NOTE | 2023-09-25 22:08 | Communication Note ---
Date of Service: September 25, 2023 Made aware by RN of uncontrolled blood pressure. SBP 160s to 170s the last 24 hours. Patient asymptomatic as per RN. AP Hypertensive urgency Likely chronic BP elevation given cardiomegaly on x-ray Hospice patient Lisinopril inpatient for now Will relay to AM provider.
[2023-09-25] MEDS: lisinopril 2.5 MG TAB PO SCH (22:48)
[2023-09-25] MEDS: FAMOTIDINE 20 MG TAB PO STA (22:48)
[2023-09-26 07:10] LABS: Hematocrit (blood only) 38.7 % (42.0-52.0); Hemoglobin 12.7 g/dl (14.0-18.0); Mean Corpuscular Hemoglobin 31.7 pg (25.0-34.0); Mean Corpuscular Hgb Conc 32.8 g/dL (32.0-36.0); Mean Corpuscular Volume 96.5 fL (80.0-100.0); Mean Platelet Volume 9.8 fL (9.4-12.4); Platelet Count 191 K/uL (130-400); RDW Coefficient of Variation 13.8 % (11.5-14.5); RDW Standard Deviation 49.2 fL (36.4-46.3); Red Blood Count 4.01 M/uL (4.70-6.10); White Blood Count 12.72 K/ul (4.8-10.8)
[2023-09-26 07:27] LABS: BUN Creatinine Ratio 32.2 (10-20); Calcium 8.8 mg/dl (8.6-10.3); Creatinine Clr Calc Pharmacy 47.3 ml/min; Est GFR (African American) 93.2 ml/min; Est GFR (Non-African American) 80.4 ml/min; Magnesium 1.7 mg/dl (1.7-2.4); Potassium 3.9 mmol/L (3.5-5.1)
[2023-09-26] MEDS: FAMOTIDINE 20 MG TAB PO SCH (08:27)
[2023-09-26] MEDS ORDERED: FAMOTIDINE 20 MG TAB PO SCH (09:00)
[2023-09-26] MEDS: amLODIPine BESYLATE 5 MG TAB PO ONE (15:28)
--- NOTE | 2023-09-26 16:50 | Hospitalist Progress Note ---
Date of Service September 26, 2023 Assessment & Plan (1) Emphysematous COPD: (2) Hospice care patient: (3) Alcohol use: (4) Chronic respiratory failure with hypoxia, on home oxygen therapy: (5) Pneumonia: Plan This is an 82yo M with a PMH of advanced COPD on Hospice since last month who presents with more significant SOB and air hunger. Acute COPD exacerbation Chronic hypoxic respiratory failure End-stage COPD Pneumonia Was on hospice --CXR with Left greater than right bibasilar airspace consolidation. Correlate clinically for evidence of pneumonia/aspiration pneumonitis. Radiographic follow-up to resolution is recommend On Unasyn, nebs, Solu-Medrol Supplemental oxygen to keep sats 88 to 92% Added Flonase Continue home Roxanol, Ativan PRN GIP hospice on 09/25/2023 Patient plans to resume hospice care on discharge Currently saturating well on room air Increase Solu-Medrol to twice a day Recurrent R diff colitis Continue PO vancomycin Contact precautions Hypertension BP elevated likely secondary to steroids Started on amlodipine Monitor BP Atrial fibrillation All medications have been discontinued by hospice last month Hypomagnesemia Replete electrolytes as needed CODE STATUS DNI DNR Admission and Anticipated Discharge Date Admission Date: September 23, 2023 Subjective Patient is seen and examined at bedside States feeling very weak and tired Reports cough with greenish expectoration Still has dyspnea on exertion No other complaints Review of Systems Review of Systems: All systems reviewed & are unremarkable except as noted in Subjective Physical Exam Physical Exam: Physical Exam: Vitals signs as noted above General Appearance:Thin, frail, no apparent distress, chronic ill-appearing Head: normocephalic, Atraumatic Eyes: normal inspection, EOMI Neck: supple, Trachea midline Respiratory/Chest: Decreased breath sounds, B/L wheezes Cardiovascular: S1, S2, No murmur Abdomen/GI:Soft, Non tender, Bowel sounds present Extremities/Musculoskeletal:normal inspection, no edema Neurologic/Psych:AAOX3, grossly no focal neurological deficits Skin: normal color, warm Results & Data Results & Data Vital Signs (Past 12 Hours) Vital Signs Temp Pulse Resp BP Pulse Ox O2 Del Method O2 Flow Rate 09/26/23 16:22 70 152/81 H 09/26/23 15:26 36.5 C 87 17 161/79 H 95 Nasal Cannula 2 09/26/23 14:08 73 18 94 Nasal Cannula 2 09/26/23 07:45 Nasal Cannula 2 09/26/23 07:28 76 17 95 Nasal Cannula 2 09/26/23 07:26 78 95 Nasal Cannula 2 09/26/23 07:09 36.4 C L 82 20 149/83 H 91 Nasal Cannula 2 Laboratory Results Short CBC 09/26/23 Range/Units 06:49 WBC 12.72 H (4.8-10.8) K/ul Hgb 12.7 L (14.0-18.0) g/dl Hct 38.7 L (42.0-52.0) % Plt Count 191 (130-400) K/uL BMP 09/26/23 06:49 Sodium 146 H Potassium 3.9 Chloride 110 H Carbon Dioxide 31 BUN 29 H Creatinine 0.90 Glucose 102 H Calcium 8.8
[2023-09-26] MEDS: methylPREDNISolone 40 MG in SYRINGE 0 ML IV SCH (20:35)
[2023-09-27] MEDS: amLODIPine BESYLATE 5 MG TAB PO SCH (08:34)
[2023-09-27 09:21] LABS: Hematocrit (blood only) 45.4 % (42.0-52.0); Hemoglobin 14.5 g/dl (14.0-18.0); Mean Corpuscular Hemoglobin 31.3 pg (25.0-34.0); Mean Corpuscular Hgb Conc 31.9 g/dL (32.0-36.0); Mean Corpuscular Volume 97.8 fL (80.0-100.0); Mean Platelet Volume 10.1 fL (9.4-12.4); Platelet Count 236 K/uL (130-400); RDW Coefficient of Variation 13.6 % (11.5-14.5); RDW Standard Deviation 49.4 fL (36.4-46.3); Red Blood Count 4.64 M/uL (4.70-6.10); White Blood Count 12.81 K/ul (4.8-10.8)
[2023-09-27 09:38] LABS: BUN Creatinine Ratio 29.9 (10-20); Calcium 9.4 mg/dl (8.6-10.3); Creatinine Clr Calc Pharmacy 43.9 ml/min; Est GFR (African American) 85.1 ml/min; Est GFR (Non-African American) 73.4 ml/min; Potassium 3.6 mmol/L (3.5-5.1)
--- NOTE | 2023-09-27 16:12 | Hospitalist Progress Note ---
Date of Service September 27, 2023 Assessment & Plan (1) Emphysematous COPD: (2) Hospice care patient: (3) Alcohol use: (4) Chronic respiratory failure with hypoxia, on home oxygen therapy: (5) Pneumonia: Plan This is an 82yo M with a PMH of advanced COPD on Hospice since last month who presents with more significant SOB and air hunger. Acute COPD exacerbation Chronic hypoxic respiratory failure End-stage COPD Pneumonia Was on hospice --CXR with Left greater than right bibasilar airspace consolidation. Correlate clinically for evidence of pneumonia/aspiration pneumonitis. Radiographic follow-up to resolution is recommend On Unasyn, nebs, Solu-Medrol Supplemental oxygen to keep sats 88 to 92% Added Flonase Continue home Roxanol, Ativan PRN GIP hospice on 09/25/2023 Patient plans to resume hospice care on discharge October 2 step prior to discharge Continue Solu-Medrol at current dose Slowly improving Recurrent R diff colitis Continue PO vancomycin Contact precautions Hypertension BP elevated likely secondary to steroids Started on amlodipine Monitor BP Atrial fibrillation All medications have been discontinued by hospice last month Hypomagnesemia Replete electrolytes as needed CODE STATUS DNI DNR Admission and Anticipated Discharge Date Admission Date: September 23, 2023 Subjective Patient is seen and examined at bedside Feels slightly better today Dyspnea slowly improving Intermittent cough No new complaints Saturating well on 2 L supplemental oxygen Review of Systems Review of Systems: All systems reviewed & are unremarkable except as noted in Subjective Physical Exam Physical Exam: Physical Exam: Vitals signs as noted above General Appearance:Thin, frail, no apparent distress, chronic ill-appearing Head: normocephalic, Atraumatic Eyes: normal inspection, EOMI Neck: supple, Trachea midline Respiratory/Chest: Decreased breath sounds, B/L wheezes Cardiovascular: S1, S2, No murmur Abdomen/GI:Soft, Non tender, Bowel sounds present Extremities/Musculoskeletal:normal inspection, no edema Neurologic/Psych:AAOX3, grossly no focal neurological deficits Skin: normal color, warm Results & Data Results & Data Vital Signs (Past 12 Hours) Vital Signs Temp Pulse Pulse Resp BP Pulse Ox O2 Del Method 09/27/23 15:11 18 94 09/27/23 14:53 36.3 C L 90 20 147/73 H 94 Nasal Cannula 09/27/23 11:28 85 18 95 Nasal Cannula 09/27/23 10:27 Nasal Cannula 09/27/23 07:25 95 H 18 93 Nasal Cannula 09/27/23 06:59 36.4 C L 84 18 156/81 H 98 Nasal Cannula O2 Flow Rate 09/27/23 15:11 09/27/23 14:53 2 09/27/23 11:28 2 09/27/23 10:27 2 09/27/23 07:25 2 09/27/23 06:59 2 Laboratory Results Short CBC 09/27/23 Range/Units 08:41 WBC 12.81 H (4.8-10.8) K/ul Hgb 14.5 (14.0-18.0) g/dl Hct 45.4 (42.0-52.0) % Plt Count 236 (130-400) K/uL BMP 09/27/23 08:41 Sodium 145 Potassium 3.6 Chloride 106 Carbon Dioxide 30 BUN 29 H Creatinine 0.97 Glucose 157 H Calcium 9.4
[2023-09-28 08:33] LABS: BUN Creatinine Ratio 33.3 (10-20); Calcium 8.8 mg/dl (8.6-10.3); Creatinine Clr Calc Pharmacy 44.4 ml/min; Est GFR (African American) 86.2 ml/min; Est GFR (Non-African American) 74.4 ml/min; Potassium 3.7 mmol/L (3.5-5.1)
--- NOTE | 2023-09-28 10:07 | XRay Report ---
XR chest 1V portable CLINICAL HISTORY: repeat COMPARISON STUDY: Chest radiograph September 23, 2023. FINDINGS: There is underlying emphysema. No pneumothorax or pleural effusion is present. Mild left ba silar opacity has slightly improved since prior exam. No new sites of consolidation are present. Ther e is no evidence for pulmonary edema. Cardiomediastinal silhouette is unremarkable. IMPRESSION: 1. Mild improvement in left basilar opacity. This favors an infectious process. Continued radiographi c follow up to ensure complete resolution is recommended. 2. Emphysema. ACT 112: Negative or not required by law. Electronically signed by: Charles Littlejohn M.D. 09/28/2023 10:06 AM
--- NOTE | 2023-09-28 14:17 | Hospitalist Progress Note ---
Date of Service September 28, 2023 Assessment & Plan (1) Emphysematous COPD: (2) Hospice care patient: (3) Alcohol use: (4) Chronic respiratory failure with hypoxia, on home oxygen therapy: (5) Pneumonia: Plan This is an 82yo M with a PMH of advanced COPD on Hospice since last month who presents with more significant SOB and air hunger. Acute COPD exacerbation Chronic hypoxic respiratory failure End-stage COPD Pneumonia Was on hospice --CXR with Left greater than right bibasilar airspace consolidation. Correlate clinically for evidence of pneumonia/aspiration pneumonitis. --Repeat CXR shows mild improvement, favoring infectious process On Unasyn, nebs, Solu-Medrol Supplemental oxygen to keep sats 88 to 92% Added Flonase Continue home Roxanol, Ativan PRN GIP hospice on 09/25/2023 Patient plans to resume hospice care on discharge 2 step ordered- he requires 2 L at rest and 4L with exertion Will convert to oral prednisone taper starting tomorrow Plan to discharge tomorrow on Breo, prednisone taper and oral antibiotic Slowly improving Recurrent Chronic C diff colitis Continue PO vancomycin Contact precautions Hypertension BP elevated likely secondary to steroids Started on amlodipine Monitor BP, will add prn hydralazine however given patient is hospice will not be aggressive as previously meds have been discontinued Atrial fibrillation All medications have been discontinued by hospice last month Hypomagnesemia Replete electrolytes as needed CODE STATUS DNI DNR PCP: Dispo: Plan to d/c to home tomorrow on hospice, he does not have a ride today A total of 40 minutes was spent coordinating, documenting, and providing care f or this patient excluding time spent in the performance of separately billed services. This included personally viewing all current laboratories and imaging studies, medication reconciliation, outpatient chart review, and discussion with specialists. Admission and Anticipated Discharge Date Admission Date: September 23, 2023 Supervising Physician Co-Signing Physician Notes Patient was not evaluated by me on 09/28/2023. Patient being managed by advanced practice provider. Subjective Patient was seen and examined in 362. Follow-up COPD exacerbation. He feels his breathing is improving from when he was first admitted. Continues to have productive cough. Denies fever, chills, sweats, chest pain, nausea, vomiting or abdominal pain. He is requesting repeat chest x-ray to ensure his pneumonia is improving. Review of Systems Review of Systems: All systems reviewed & are unremarkable except as noted in HPI & below Physical Exam Physical Exam: Gen: Thin, cachectic, frail, NAD, A&O x3 HEENT: Normocephalic, atraumatic, conjunctivae moist, sclerae anicteric, mucous membranes moist. Lung: Clear to Auscultation bilaterally with diminished breath sounds b/l no wheezes/rales/rhonchi Heart: Regular rate, regular rhythm, no murmurs, rubs, or gallops Abdomen: Soft, NT, ND +BS x 4 Extremities: No edema Skin: Warm, no rash, negative turgor. Results & Data Results & Data Vital Signs (Past 12 Hours) Vital Signs Temp Pulse Resp BP Pulse Ox O2 Del Method O2 Flow Rate 09/28/23 11:36 84 15 94 Nasal Cannula 2.5 09/28/23 09:30 Nasal Cannula 2 09/28/23 08:01 84 17 94 Nasal Cannula 2 09/28/23 07:39 36.6 C 80 16 178/88 H 97 Nasal Cannula 2 Laboratory Results BMP 09/28/23 07:34 Sodium 145 Potassium 3.7 Chloride 110 H Carbon Dioxide 30 BUN 32 H Creatinine 0.96 Glucose 128 H Calcium 8.8 Diagnostic Findings Chest X-Ray 09/28/23 09:38 XR chest 1V portable CLINICAL HISTORY: repeat COMPARISON STUDY: Chest radiograph September 23, 2023. FINDINGS: There is underlying emphysema. No pneumothorax or pleural effusion is present. Mild left basilar opacity has slightly improved since prior exam. No new sites of consolidation are present. There is no evidence for pulmonary edema. Cardiomediastinal silhouette is unremarkable. IMPRESSION: 1. Mild improvement in left basilar opacity. This favors an infectious process. Continued radiographic follow up to ensure complete resolution is recommended. 2. Emphysema. ACT 112: Negative or not required by law. Electronically signed by: Charles Littlejohn M.D. 09/28/2023 10:06 AM Medications Administered Current Inpatient Medications Albuterol (Albut/Ipratrop 3mg/0.5mg Neb 3 Ml Vial) 3 ml NEB QIDR [facility]; Protocol Stop: 10/23/23 18:59 Last Admin: 09/28/23 11:36 Dose: 3 ml Albuterol (Albuterol Hfa 8 Gm Inhaler) 2 puffs INH Q4H PRN PRN Reason: shortness of breath or wheezing Amlodipine Besylate (Amlodipine Besylate 5 Mg Tab) 5 mg PO QAM CHILO Stop: 10/27/23 08:59 Last Admin: 09/28/23 08:04 Dose: 5 mg Hebert Syrup (Hebert Syrup 5 Ml Udp) 5 ml PO DAILY CHILO Stop: 10/24/23 08:59 Last Admin: 09/28/23 08:04 Dose: 5 ml Famotidine (Famotidine 20 Mg Tab) 20 mg PO BID CHILO Stop: 10/26/23 08:59 Last Admin: 09/28/23 08:05 Dose: 20 mg Fluticasone Propionate (Fluticasone Propionate Na Spr 16 Gm Btl) 2 sprays NA DAILY CHILO Stop: 10/24/23 13:59 Last Admin: 09/28/23 08:06 Dose: 2 sprays Guaifenesin (Guaifenesin 200 Mg Tab) 200 mg PO BID [facility] Stop: 10/23/23 22:29 Last Admin: 09/28/23 08:05 Dose: 200 mg Lorazepam 0.5 mg/ Syringe 0.5 mls @ 2 mls/min IV Q8H PRN PRN Reason: Anxiety/Agitation Stop: 10/23/23 17:01 Ampicillin Sodium/Sulbactam Sodium 3,000 mg/ Sodium Chloride 100 mls @ 200 mls/hr IV Q6H [facility] Stop: 09/30/23 19:59 Last Admin: 09/28/23 13:02 Dose: 200 mls/hr Methylprednisolone 40 mg/ (Syringe) 0.64 mls @ 1.5 mls/min IV BID [facility] Stop: 10/26/23 20:59 Last Admin: 09/28/23 08:05 Dose: 1.5 mls/min Ipratropium [place] (Ipratropium [place] Neb Soln 0.02% 0.5mg/2.5ml Vial) 0.5 mg INH Q4H PRN PRN Reason: sob wheeze Stop: 10/24/23 01:09 Levalbuterol HCl (Levalbuterol 1.25 Mg/3 Ml Neb) 1.25 mg NEB Q4H PRN PRN Reason: sob wheeze Stop: 10/24/23 01:09 Lorazepam (Lorazepam 0.5 Mg Tab) 0.5 mg SL Q8H PRN PRN Reason: Anxiety/Agitation Stop: 10/23/23 17:01 Morphine Sulfate (Morphine Sulfate 10 Mg/0.5 Ml Udp) 5 mg PO Q8 PRN PRN Reason: air hunger Stop: 10/07/23 17:01 Last Admin: 09/23/23 18:33 Dose: 5 mg Ondansetron HCl (Ondansetron Inj 2 Mg/Ml 2 Ml Vial) 4 mg IV Q6H PRN PRN Reason: Nausea Stop: 10/23/23 17:01 Polyethylene Glycol (Polyethylene (Miralax) 17 Gm Pack) 17 gm PO DAILY PRN PRN Reason: Constipation Stop: 10/23/23 17:01 Vancomycin HCl (Vancomycin Hcl 125 Mg/2.5ml Soln) 125 mg PO DAILY CHILO Stop: 10/24/23 08:59 Last Admin: 09/28/23 08:04 Dose: 125 mg
[2023-09-29] MEDS: hydrALAZINE 10 MG TAB PO PRN (08:21)
[2023-09-29] MEDS: predniSONE 20 MG TAB PO SCH (08:23)
--- NOTE | 2023-09-29 10:32 | Discharge Summary ---
Discharge Summary Date of Service September 29, 2023 Notes For Next Care Provider Pt to remain on hospice. He was hospitalized secondary to significant COPD exacerbation, air hunger and diagnosed with pneumonia. Chest x-ray prior to discharge was reviewed and revealed improvement in con solidation. It is recommended to repeat chest x-ray after completion of antibiotics. It is recommended patient remain on maintenance inhaler, Breo. This may need to be stepped up depending on result. He states he previously was on Trelegy, but was taken off via hospice. At this point, maintenance inhalers would significantly help his symptoms as well as possibly improve or reduce hospitalization. Medication Changes From Visit Augmentin 875 mg 1 tablet by mouth twice daily for additional 7 days. Next dose is due on the evening of 09/29/2023. Prednisone taper as follows: * 40 mg (2 tablets) x 3 days, next dose due on 09/30/2023 in the AM * 30 mg ( 1.5 tablets) x 3 days * 20 mg (1 tablet) x 3 days * 10 mg (0.5mg tablet) x 3 days, then stop Breo Ellipta 1 inhalation daily, first thing in the morning. Rinse your mouth with mouthwash after use. Recommend to use every day to help with COPD e xacerbations. Fluticasone nasal spray, 2 sprays in each nostril daily. Amlodipine 5 mg by mouth daily. Next dose due on 09/30/2023. Admission HPI Per Admitting Provider This is an 82yo M with a PMH of advanced COPD on Hospice since last month who presents with more significant SOB and air hunger. [place] anxious at home and unable to get to his nebulizer. Has started on Hospice and most recent note indicates he was started on a Duoneb but Trelegy and Dailiresp have been discontinued. Recently discontinued all A fib meds and has continued taking oral Vanco for recurrent C diff. Family was concerned about worsening SOB and brought to ED for further evaluation. Had a discussion with [facility] who will evaluate the patient this evening under GIP. Admission Exam Per Admitting Provider GENERAL APPEARANCE: AxOx4, frail cachectic, mild distress HEENT: NC, AT. MMM. EOMI, clear conjunctiva, oropharynx clear, edentulous NECK: thin. No stiffness or restricted ROM. HEART: diminished 2/2 wheezing LUNGS: diffuse wheezing, conversational dyspnea ABDOMEN: Soft, nontender, nondistended with good bowel sounds heard. EXTREMITIES: Without cyanosis, clubbing or edema. NEUROLOGICAL: Grossly nonfocal. Alert and oriented, moving all 4 extremities. CN not formally tested but appear grossly intact. Skin: Warm and dry without any rash. : Principal Dx & Hospital Course #1 = Principal Diagnosis (1) Emphysematous COPD: (2) Hospice care patient: (3) Alcohol use: (4) Chronic respiratory failure with hypoxia, on home oxygen therapy: (5) Pneumonia: Plan This is an 82yo M with a PMH of advanced COPD on Hospice since last month who presents with more significant SOB and air hunger. Acute COPD exacerbation Chronic hypoxic respiratory failure End-stage COPD Pneumonia Was on hospice --CXR with Left greater than right bibasilar airspace consolidation. Correlate clinically for evidence of pneumonia/aspiration pneumonitis. --Repeat CXR shows mild improvement, favoring infectious process On Unasyn, nebs, Solu-Medrol Supplemental oxygen to keep sats 88 to 92% Added Flonase Continue home Roxanol, Ativan PRN GIP hospice on 09/25/2023 Patient plans to resume hospice care on discharge 2 step ordered- he requires 2 L at rest and 4L with exertion Will convert to oral prednisone taper starting 09/28 Plan to discharge today on Breo, prednisone taper and oral antibiotic Recurrent Chronic C diff colitis Continue PO vancomycin Contact precautions Hypertension BP elevated likely secondary to steroids Started on amlodipine Will continue, pt is encouraged to monitor blood pressure and follow up with PCP regarding this Atrial fibrillation All medications have been discontinued by hospice last month Hypomagnesemia Replete electrolytes as needed CODE STATUS DNI DNR PCP: Dispo: D/C to home and resume hospice services Discharge Exam Gen: Thin, cachectic, frail, NAD, A&O x3 HEENT: Normocephalic, atraumatic, conjunctivae moist, sclerae anicteric, mucous membranes moist. Lung: Clear to Auscultation bilaterally with diminished breath sounds b/l trace wheezes, no rales/rhonchi Heart: Regular rate, regular rhythm, no murmurs, rubs, or gallops Abdomen: Soft, NT, ND +BS x 4 Extremities: No edema Skin: Warm, no rash, negative turgor. Updated Medication List Medication Instructions Recorded Confirmed Type albuterol sulfate 90 mcg/actuation 2 puffs inhalation Q4H PRN 04/11/19 09/23/23 History breath activated powder inhaler shortness of breath or wheezing (ProAir RespiClick) folic acid 1 mg tablet 1 mg PO QAM 04/11/19 09/23/23 History acetaminophen 500 mg tablet 1,000 mg PO DIRECTED PRN Pain 09/27/21 09/23/23 History (Tylenol Extra Strength) multivitamin with minerals 1 tab PO DAILY 09/27/21 09/23/23 History omeprazole 40 mg capsule,delayed 40 mg PO DAILYBB 09/27/21 09/23/23 History release potassium chloride 20 mEq 20 meq PO DAILY 09/27/21 09/23/23 History tablet,extended release famotidine 20 mg tablet 20 mg PO BID Heartburn 06/20/22 09/23/23 History Saccharomyces boulardii 250 mg 250 mg PO DAILY 03/24/23 09/23/23 History capsule (Florastor) ferrous sulfate 325 mg (65 mg 325 mg PO DAILY 03/24/23 09/23/23 History iron) tablet vancomycin 125 mg capsule 125 mg PO DAILY 03/24/23 09/23/23 History guaifenesin 200 mg tablet 200 mg PO AMPM 09/23/23 09/23/23 History ipratropium 0.5 mg-albuterol 3 mg 3 ml inhalation Q4 PRN Shortness 09/23/23 09/23/23 History (2.5 mg base)/3 mL nebulization Of Breath Or Wheezing soln lorazepam 1 mg tablet 0.5 mg sublingual DIRECTED PRN 09/23/23 09/23/23 History .Restless/insomnia magnesium chloride 64 mg 64 mg PO DAILY 09/23/23 09/23/23 History (magnesium chloride) tablet,delayed release (Mag 64) morphine concentrate 100 mg/5 mL 5 mg sublingual .Q2HR PRN Pain 09/23/23 09/23/23 History (20 mg/mL) oral solution amlodipine 5 mg tablet (Norvasc) 5 mg PO QAM #30 tabs 09/29/23 Rx amoxicillin 875 mg-potassium 1 tab PO BID #14 tabs 09/29/23 Rx clavulanate 125 mg tablet fluticasone furoate 100 1 inh inhalation DAILY #60 ea 09/29/23 Rx mcg-vilanterol 25 mcg/dose inhalation powder (Breo Ellipta) fluticasone propionate 50 2 spray NA DAILY #16 grams 09/29/23 Rx mcg/actuation nasal spray,suspension prednisone 20 mg tablet See Taper PO UD #15 tabs 09/29/23 Rx Hospital Stay Data Consultations 09/23/23 14:24 ED Decision to Admit Stat 09/24/23 08:22 Consult Palliative Care Routine Pending Results Patient Have Any Pending Studies at Discharge: No Discharge Instructions Given to Patient (Per Discharging Provider) MEDICATION CHANGES: Augmentin 875 mg 1 tablet by mouth twice daily for additional 7 days. Next dose is due on the evening of 09/29/2023. Prednisone taper as follows: * 40 mg (2 tablets) x 3 days, next dose due on 09/30/2023 in the AM * 30 mg ( 1.5 tablets) x 3 days * 20 mg (1 tablet) x 3 days * 10 mg (0.5mg tablet) x 3 days, then stop Breo Ellipta 1 inhalation daily, first thing in the morning. Rinse your mouth with mouthwash after use. Recommend to use every day to help with COPD exacerbations. Fluticasone nasal spray, 2 sprays in each nostril daily. Amlodipine 5 mg by mouth daily. Next dose due on 09/30/2023. SUMMARY OF TEST RESULTS: You were admitted to hospital secondary to COPD exacerbation and pneumonia. You have been treated with IV antibiotics. You were also treated with IV steroids and [id number] nebulizers. Your blood pressure was elevated during hospital stay. This is likely in relation to steroid use. PENDING TEST RESULTS: none RECOMMENDATIONS FOR FOLLOW-UP: Please follow-up with primary care provider as scheduled. It is recommended that you have a repeat chest x-ray after completion of antibiotics to ensure resolution of pneumonia. Please monitor your blood pressure on a daily basis and keep a log of this. Your blood pressure was elevated during hospital stay and you were started on a new blood pressure medication called amlodipine. Please discuss this with your family doctor. It is recommended that you take the inhaler, Breo, daily despite being on hospice. This medication will help prevent or reduce COPD exacerbations. It is recommended that you discuss this with your primary care provider as they may need to increase the dose if you continue to have frequent flares. It is recommended you avoid the outdoors with high levels of pollen as this may flare your COPD. If you do go out and about would recommend wearing protective facial covering. Continue duoneb nebulizer up to 4 x a day as needed for shortness of breath. You may also utilize your roxanol (morphine) for Shortness of breath as well. OTHER INSTRUCTIONS: Seek medical attention if you have: * temperature above 101 * chest pain or trouble breathing * abdominal pain, nausea, vomiting * diarrhea, dark stools or bloody stools * any unanswered questions or concerns Call 911 if symptoms are severe. Please take good care of yourself. It has been a pleasure taking care of you. Please take care of yourself. If you have any questions regarding your recent hospitalization please contact [facility] and [facility] @ [phone]. Kayli Fish PA-C Total Time Total Time Spent Total Time Spent (In Minutes): 45 minutes Supervising Physician Co-Signing Physician Notes Attending addendum: The patient was seen and examined in medical floor He was admitted with COPD exacerbation and the condition has improved a lot He denies any more respiratory symptoms and has been ambulating without any difficulty His current medications , labs and imaging studies reviewed and Agree with assessment and plan as outlined above by Marilyn Kay PA-C
== END 2023-09-29 15:08 | disposition hospice, home (50) | DRG 951 ==
LOC: ED 12:51 → SUATTDRO 15:27 → 3W 15:27